=== PATIENT | male | born 1955 | race Two or more races ===

== ENCOUNTER 2023-01-25 07:44 | Outpatient (OUT) | payer MEDICARE, SELFPAY ==
[2023-01-27 08:08] LABS: PSA, Free 0.88 ng/mL
== END 2023-01-25 07:45 | disposition home or self-care (01) ==
PROVIDERS: PCP Family Medicine
DX: R97.20 Elevated prostate specific antigen [PSA] (principal)
CPT/HCPCS: 36415; 84153; 84154

== ENCOUNTER 2023-03-21 10:16 | Emergency (ER) | payer MEDICARE, SELFPAY ==
[2023-03-21] VITALS (52 sets, daily range): BP systolic 77–107; BP diastolic 50–72; PULSE 46–80; RESP 11–26; O2SAT 81–100; BMI 25.7
--- NOTE | 2023-03-21 10:18 | ECG_ITS ---
The [facility] Test Date: 2023-03-21 Pat Name: ESEQUIEL ORTIZ Department: Room: - Gender: Male Hr Specialist: : 1955 Requested By: ANGELLA JAQUEZ Order Number: [id number] Reading MD: ANGELLA JAQUEZ Measurements Intervals [place] Rate: 61 P: 63 GA: 172 QRS: 76 QRSD: 84 T: 79 QT: 392 QTc: 396 Interpretive Statements 1100 Sinus rhythm 1102 Sinus arrhythmia 4068 Nonspecific [place] abnormality 0102 ARTIFACT PRESENT 9130 borderline ECG No previous ECG available for comparison Electronically Signed On 03-22-2023 6:47:59 EDT by ANGELLA JAQUEZ
--- NOTE | 2023-03-21 10:19 | ED_ITS ---
HPI - Chest Pain General Chief Complaint: Chest Pain Stated Complaint: CHEST PAIN Time Seen by Provider: 03/21/23 10:18 History of Present Illness HPI narrative: 68-year-old male presents for chest pain. He's been having it intermittently for the last week and he was at his doctor's office today and he was transported here paramedics. He doesn't have any pain now. He was given nitroglycerin and aspirin in the prehospital setting. He's had no fever cough or trauma. He has no personal history of heart diseasee. Related Data Home Medications Medication Instructions Recorded Confirmed pantoprazole 40 mg tablet,delayed 40 mg PO DAILY 03/21/23 03/21/23 release tamsulosin 0.4 mg capsule 0.4 mg PO Q24H 03/21/23 03/21/23 Allergies Allergy/AdvReac Type Severity Reaction Status Date / Time No Known Drug Allergies Allergy Verified 03/21/23 10:21 Review of Systems ROS Narrative A ten point review of systems is negative except as noted above. Cardiovascular Reports: chest pain PFSH PFSH Social History Smoking status: Current every day smoker Exam Narrative Exam Narrative: Nurses note and vital signs reviewed and patient is not hypoxic. General: The patient appears well and in no apparent distress. Patient is resting comfortably on cart. Skin: Warm, dry, no pallor noted. There is no rash noted. Head: Normocephalic, atraumatic Eye: Normal conjunctiva, no drainage Ears, Nose, Mouth, and Throat: oral mucosa is moist. Nares patent. Cardiovascular: Regular Rate and Rhythm, chest wall not tender, no bruise or rash present Respiratory: Patient is in no distress, no accessory muscle use, lungs are jordyn r to auscultation, no wheezing, rales or rhonchi Back: non-tender, GI: soft and nontender Musculoskeletal: The patient has no evidence of calf tenderness, no pitting edema, symmetrical pulses noted bilaterally Neurological: A&O, normal speech Psychiatric: Cooperative Constitutional Vital Signs, click to edit/add: Last Vital Signs Pulse 50 L 03/21/23 13:00 Resp 17 03/21/23 13:00 BP 105/72 03/21/23 13:00 Pulse Ox 99 03/21/23 12:50 O2 Del Method Room Air 03/21/23 10:21 Course Vital Signs Vital signs: Vital Signs Pulse Rate 80 03/21/23 10:19 Respiratory Rate 20 03/21/23 10:19 Pulse Oximetry 100 03/21/23 10:19 Pulse Rate 50 L 03/21/23 13:00 Respiratory Rate 17 03/21/23 13:00 Blood Pressure 105/72 03/21/23 13:00 Pulse Oximetry 99 03/21/23 12:50 Oxygen Delivery Method Room Air 03/21/23 10:21 MDM - Chest Pain MDM Narrative Medical decision making narrative: the patient presents pain-free. He's been having pain on and off for the past week and had an abnormal EKG in his PCPs office with ST depression laterally. Initial troponin was forty-two but the repeat is one hundred seventeen. He remains pain-free. He was given IV heparin and I've spoken to Dr. Perez and we have agreed that the patient will be [facility] to [facility]. The patient is agreeable and stable for transfer. Differential Diagnosis Differential diagnosis: Likely pneumothorax, unstable angina pectoris, atypical chest pain, st elevation myocardial infarction and other (NSTEMI) Lab Data Attestation: I reviewed the patient's lab results. Labs: Lab Results 03/21/23 03/21/23 Range/Units 10:25 12:17 WBC 6.1 (4.0-11.0) 10^3/uL RBC 4.61 L (4.70-6.10) 10^6/uL Hgb 14.3 (14.0-18.0) g/dL Hct 42.2 (42.0-54.0) % MCV 91.5 (80.0-94.0) fL MCH 31.0 (25.9-34.0) pg MCHC 33.9 (29.9-35.2) g/dL RDW 13.1 (11.0-15.0) % Plt Count 222 (150-450) 10^3/uL MPV 9.0 L (9.5-13.5) fL Neut % (Auto) 68.8 (43.0-75.0) % Lymph % (Auto) 25.4 (20.5-60.0) % [place] % (Auto) 4.9 (1.7-12.0) % Eos % (Auto) 0.3 L (0.9-7.0) % Baso % (Auto) 0.3 (0.2-2.0) % Neut # (Auto) 4.2 (1.4-6.5) 10^3/uL Lymph # (Auto) 1.6 (1.2-3.8) 10^3/uL [place] # (Auto) 0.3 (0.3-0.8) 10^3/uL Eos # (Auto) 0.0 (0.0-0.7) 10^3/uL Baso # (Auto) 0.0 (0.0-0.1) 10^3/uL Abs Immat Gran (auto) 0.02 (0.00-0.03) 10^3/uL Imm/Tot Granulo (auto) 0.3 (0.0-0.5) % Sodium 136 (136-145) mmol/L Potassium 3.4 L (3.5-5.1) mmol/L Chloride 104 (98-107) mmol/L Carbon Dioxide 24.4 (21.0-32.0) mmol/L Anion Gap 11.0 BUN 16.0 (7.0-18.0) mg/dL Creatinine 1.07 (0.70-1.30) mg/dL Est GFR ( Amer) >60 (>=60) Est GFR (Non-Af Amer) >60 (>=60) BUN/Creatinine Ratio 15.0 Glucose 196 H (74-106) mg/dL Calcium 8.4 L (8.5-10.1) mg/dL Troponin I High Sens 42.7 117.3 H* (4.0-76.1) pg/mL Imaging Data Chest x-ray: Radiologist's impression: Procedure: XR chest 1V EXAM: XR chest 1V HISTORY: . CP . COMPARISON: None. TECHNIQUE: Single view of the chest FINDINGS: Heart and vascularity are unremarkable. Lungs are free of focal infiltrates. Grossly no bony abnormality is appreciated. IMPRESSION: No acute heart or lung disease identified. Electronically authenticated by: BRANDIE DIAZ Date: 03/21/2023 10:56 ECG Data Attestation: I personally reviewed and interpreted this ECG as follows: (EKG on my interpretation shows normal sinus rhythm without acute change in a rate of 61. This is a change from EKG done at his PCPs office at 8:[address] depression inferiorly and laterally.) Heart Score History: Highly Suspicious ECG: Normal Age: >65 years Risk Factors: >3 Risk Factors/ HX of CAD:2 Troponin: <3X Normal Limit Total Heart Score Recommendations & Risks:: 7 Critical Care Time Critical Care Time Critical Care Time: Yes Total Critical Care Time: 40 Attestation: Due to the high probability of sudden and clinically significant deterioration in the patient's condition he/she required the highest level of my preparedness to intervene urgently I provided critical care time including documentation time, medication orders and management, reevaluation, vital sign assessment, ordering and reviewing of lab tests, ordering and reviewing of x-ray studies, and admission orders. Aggregate critical care time is 40 minutes including only time during which I was engaged in work directly related to his/her care and did not include time spent treating other patients simultaneously. Discharge Plan Discharge Chief Complaint: Chest Pain Clinical Impression: Acute non-ST elevation myocardial infarction (NSTEMI) Patient Disposition: [facility] Time of Disposition Decision: 12:55 Discharge Location: The [facility] Condition: Good Mode of Transportation: EMS
[2023-03-21 10:35] LABS: Basophils Percent Auto 0.3 % (0.2-2.0); Eosinophils Percent Auto 0.3 % (0.9-7.0); Hematocrit 42.2 % (42.0-54.0); Hemoglobin 14.3 g/dL (14.0-18.0); Immature Granulocytes Abs Auto 0.02 10^3/uL (0.00-0.03); Immature Granulocytes Pct Auto 0.3 % (0.0-0.5); Lymphocytes Absolute Auto 1.6 10^3/uL (1.2-3.8); Lymphocytes Percent Auto 25.4 % (20.5-60.0); Mean Corpuscular HGB Conc 33.9 g/dL (29.9-35.2); Mean Corpuscular Volume 91.5 fL (80.0-94.0); Monocytes Absolute Auto 0.3 10^3/uL (0.3-0.8); Monocytes Percent Auto 4.9 % (1.7-12.0); Neutrophils Absolute Auto 4.2 10^3/uL (1.4-6.5); Neutrophils Percent Auto 68.8 % (43.0-75.0); Platelet Count 222 10^3/uL (150-450); Red Blood Count 4.61 10^6/uL (4.70-6.10); Red Cell Distribution Width 13.1 % (11.0-15.0); White Blood Count 6.1 10^3/uL (4.0-11.0)
--- NOTE | 2023-03-21 10:35 | XR_ITS ---
The [address] [address] Patient Name: ESEQUIEL ORTIZ MRN: [facility]:[id number] date: 1955 Sex: M Assigned Patient Location: ER Current Patient Location: ER Accession/Order Number: [id number] Exam Date: 03/21/2023 10:30 Report Date: 03/21/2023 10:56 At the request of: YANN VILLALBA Procedure: XR chest 1V EXAM: XR chest 1V HISTORY: . CP . COMPARISON: None. TECHNIQUE: Single view of the chest FINDINGS: Heart and vascularity are unremarkable. Lungs are free of focal infiltrates. Grossly no bony abnormality is appreciated. XR/XR chest 1V IMPRESSION: No acute heart or lung disease identified. Electronically authenticated by: BRANDIE DIAZ Date: 03/21/2023 10:56
[2023-03-21 11:00] LABS: Calcium 8.4 mg/dL (8.5-10.1); Carbon Dioxide 24.4 mmol/L (21.0-32.0); Chloride 104 mmol/L (98-107); Estimated GFR (African America >60 (>=60); Estimated GFR (Non-African Ame >60 (>=60); Glucose 196 mg/dL (74-106); Potassium 3.4 mmol/L (3.5-5.1); Sodium 136 mmol/L (136-145); Troponin I High Sensitivity 42.7 pg/mL (4.0-76.1)
[2023-03-21] MEDS: 0.9 % SODIUM CHLORIDE 1,000 ML 999 ML IV (12:02)
[2023-03-21 12:41] LABS: Troponin I High Sensitivity 117.3 pg/mL (4.0-76.1)
[2023-03-21 13:44] LABS: INR 0.99; Partial Thromboplastin Time 32.1 sec (22.3-36.2); Prothrombin Time 10.5 sec (9.0-11.6)
[2023-03-21] MEDS: HEPARIN SODIUM,PORCINE/D5W 25,000 UNIT/500 ML IV.SOLN 15.785 UNIT IV (13:47)
[2023-03-21] MEDS: HEPARIN SODIUM (PORCINE) 5,000 UNIT/ML VIAL 4000 UNIT IV (13:47)
== END 2023-03-21 18:25 | disposition short-term general hospital (02) ==
PROVIDERS: Emergency Provider Emergency Medicine; PCP Family Medicine
DX: I21.4 Non-ST elevation (NSTEMI) myocardial infarction (principal); F17.210 Nicotine dependence, cigarettes, uncomplicated
CPT/HCPCS: 36415; 71045; 80048; 84484; 85025; 85610; 85730; 93005; 99285

== ENCOUNTER 2023-05-03 09:51 | Outpatient (OUT) | payer MEDICARE, SELFPAY ==
--- NOTE | 2023-05-03 09:58 | XR_ITS ---
The [address] [address] Patient Name: ESEQUIEL ORTIZ MRN: [id number] date: 1955 Sex: M Assigned Patient Location: [facility] Current Patient Location: [facility] Accession/Order Number: [id number] Exam Date: 05/03/2023 10:05 Report Date: 05/03/2023 10:31 At the request of: NON-STAFF PHYSICIAN Procedure: XR chest 2V EXAM: XR chest 2V HISTORY: Lung Mass R91.8, Shortness Of Breath R06.02 COMPARISON: None. TECHNIQUE: PA and lateral views of the chest. FINDINGS: The cardiomediastinal silhouette is normal. No focal consolidation is identified. There is no pneumothorax. No pleural effusion is noted. The osseous structures are intact. XR/XR chest 2V IMPRESSION: No acute cardiopulmonary process. Suggestion of COPD. Right apical scarring is not clearly seen. Electronically authenticated by: PARVIN CASEY Date: 05/03/2023 10:31
== END 2023-05-03 09:52 | disposition home or self-care (01) ==
LOC: RAD 09:53
PROVIDERS: PCP Family Medicine
DX: R91.8 Other nonspecific abnormal finding of lung field (principal); R06.02 Shortness of breath
CPT/HCPCS: 71046

== ENCOUNTER 2023-05-06 15:56 | Inpatient (IN) | payer MEDICARE, SELFPAY ==
[2023-05-06] VITALS (58 sets, daily range): BP systolic 122–168; BP diastolic 64–75; PULSE 65–96; RESP 12–32; TEMP 36.6; O2SAT 76–100; BMI 22.8; BMI 23.8
--- NOTE | 2023-05-06 16:07 | ECG_ITS ---
The [facility] Test Date: 2023-05-06 Pat Name: ESEQUIEL ORTIZ Department: Room: - Gender: Male Pharmacy Ancillary: : 1955 Requested By: ANGELLA JAQUEZ Order Number: [id number] Reading MD: ANGELLA JAQUEZ Measurements Intervals [place] Rate: 85 P: 76 AL: 160 QRS: 57 QRSD: 82 T: 90 QT: 284 QTc: 326 Interpretive Statements T wave inversion -= possible high laterarl ischemia 9150 abnormal ECG Compared to ECG 03/21/2023 10:19:39 Myocardial infarct finding now present Sinus arrhythmia no longer present Electronically Signed On 05-08-2023 5:27:42 EST by ANGELLA JAQUEZ
--- NOTE | 2023-05-06 16:07 | XR_ITS ---
The [address] [address] Patient Name: ESEQUIEL ORTIZ MRN: [facility]:[id number] date: 1955 Sex: M Assigned Patient Location: ED.MAIN Current Patient Location: ER Accession/Order Number: [id number] Exam Date: 05/06/2023 16:28 Report Date: 05/06/2023 17:24 At the request of: ELINA HOLLEY Procedure: XR chest 1V EXAM: XR chest 1V HISTORY: shortness of breath COMPARISON: 05/03/2023 TECHNIQUE: Chest X-ray AP, 1 view FINDINGS: Support devices: None. Lungs/pleura: Left lower lobe opacity, may represent atelectasis and/or consolidation. No effusion, or pneumothorax. Heart and mediastinum: Normal contours. Bones: No acute abnormality identified. XR/XR chest 1V Impression: Left lower lobe opacity, may represent atelectasis and/or consolidation. Electronically authenticated by: CAM METZGER Date: 05/06/2023 17:24
--- NOTE | 2023-05-06 16:09 | ED_ITS ---
HPI - SOB/Dyspnea General Chief Complaint: Weakness Stated Complaint: low blood pressure Time Seen by Provider: 05/06/23 16:05 Source: patient Mode of arrival: walk-in History of Present Illness HPI Narrative: Patient brought in for evaluation after he developed generalized weakness/fatigue, telling me I just don't feel normal inside . No chest pain, tightness or shortness of breath. No fever or chills. No GI or complaints. Patient was transferred from our ED to [facility] on 03/21/23 with NTESMI. He told me that they tried to do a catheterization but were unsuccessful. He was discharged home and then returned 04/22/23 to get triple bypass. He said he had been doing well until he developed symptoms this morning, as described above. Related Data Home Medications Medication Instructions Recorded Confirmed pantoprazole 40 mg tablet,delayed 40 mg PO DAILY 03/21/23 03/21/23 release tamsulosin 0.4 mg capsule 0.4 mg PO Q24H 03/21/23 03/21/23 Allergies Allergy/AdvReac Type Severity Reaction Status Date / Time No Known Drug Allergies Allergy Verified 03/21/23 10:21 [facility] Social History Smoking status: Current every day smoker Exam Narrative Exam Narrative: Nurses notes and vital signs reviewed and patient is not hypoxic. afebrile General: Well-appearing and in no apparent distress. Skin: Warm, dry, no pallor noted. No rash. Head: Normocephalic, atraumatic. Neck: Supple, non-tender. Eye: Pupils are equal, round and EOMI. No scleral icterus. Cardiovascular: Regular Rate and Rhythm without murmur, gallop or rub. Respiratory: No accessory muscle use or respiratory distress. Lungs are clear to auscultation, no wheezing, rales or rhonchi Chest Wall: no tenderness, crepitus or subcutaneous emphysema Back: No midline thoracic or lumbar vertebral tenderness. No CVA tenderness Musculoskeletal: normal ROM, no calf or popliteal tenderness, no lower extremity edema/swelling Neurological: A&O x4. No cranial nerve dysfunction observed. No truncal ataxia. Moves all extremities. Sensation intact. Psychiatric: Cooperative and interactive. Normal mood and affect. Constitutional Vital Signs, click to edit/add: Last Vital Signs Pulse 82 05/06/23 17:50 Resp 18 05/06/23 17:50 BP 124/64 11/20/23 17:48 Pulse Ox 100 05/06/23 17:50 Course Vital Signs Vital signs: Vital Signs Pulse Rate 91 H 05/06/23 16:00 Respiratory Rate 16 05/06/23 16:00 Blood Pressure 133/70 05/06/23 16:00 Pulse Oximetry 99 05/06/23 16:00 Pulse Rate 82 05/06/23 17:50 Respiratory Rate 18 05/06/23 17:50 Blood Pressure 124/64 05/06/23 17:48 Pulse Oximetry 100 05/06/23 17:50 MDM - SOB/Dyspnea MDM Narrative Medical decision making narrative: Patient was placed on environmental monitoring specialist and EKG obtained. Blood drawn and sent for evaluation. chest x-ray obtained. I sent a copy of the patient's EKG today to the utilization management rn on-call, Dr. Perez. He reviewed it and sent back images of the EKGs that had been obtained during his recent hospitalization at [facility]. The coving that I noted on today's EKG was ST elevation a couple of weeks ago. Dr. Perez told me that the troponin was normal that the patient could be admitted to [facility] for overnight serial enzymes. WBC normal but CXR shows LLL consolidation/opacity - I started him on IV Rocephin 1gm. Troponin elevated at 119.8 and BNP elevated at 2255. I texted Dr Perez to let him know and then I called the transfer line to set up transfer of this patient to [facility]. After talking with the transfer line I got a text that Dr Perez wanted a repeat troponin to decide if the patient needed to be transferred. Repeat troponin at 2hr sandra was 121.2. I spoke with Dr Perez and he is going to have the patient be admitted to [facility]. Hospitalist paged to discuss admission. Dr New and I discussed the case and he will talk to the hospitalist about admission to [facility] with the understanding that he would be transferred to [facility]. Lab Data Attestation: I reviewed the patient's lab results. Labs: Lab Results 05/06/23 05/06/23 05/06/23 Range/Units 16:20 16:45 18:28 WBC 7.3 (4.0-11.0) 10^3/uL RBC 3.37 L (4.70-6.10) 10^6/uL Hgb 10.1 L (14.0-18.0) g/dL Hct 32.5 L (42.0-54.0) % MCV 96.4 H (80.0-94.0) fL MCH 30.0 (25.9-34.0) pg MCHC 31.1 (29.9-35.2) g/dL RDW 15.1 H (11.0-15.0) % Plt Count 574 H (150-450) 10^3/uL MPV 8.8 L (9.5-13.5) fL Neut % (Auto) 67.7 (43.0-75.0) % Lymph % (Auto) 23.2 (20.5-60.0) % [place] % (Auto) 6.4 (1.7-12.0) % Eos % (Auto) 1.9 (0.9-7.0) % Baso % (Auto) 0.4 (0.2-2.0) % Neut # (Auto) 5.0 (1.4-6.5) 10^3/uL Lymph # (Auto) 1.7 (1.2-3.8) 10^3/uL [place] # (Auto) 0.5 (0.3-0.8) 10^3/uL Eos # (Auto) 0.1 (0.0-0.7) 10^3/uL Baso # (Auto) 0.0 (0.0-0.1) 10^3/uL Abs Immat Gran (auto) 0.03 (0.00-0.03) 10^3/uL Imm/Tot Granulo (auto) 0.4 (0.0-0.5) % Sodium 142 (136-145) mmol/L Potassium 3.7 (3.5-5.1) mmol/L Chloride 105 (98-107) mmol/L Carbon Dioxide 24.3 (21.0-32.0) mmol/L Anion Gap 16.4 BUN 13.0 (7.0-18.0) mg/dL Creatinine 1.09 (0.70-1.30) mg/dL Est GFR ( Amer) >60 (>=60) Est GFR (Non-Af Amer) >60 (>=60) BUN/Creatinine Ratio 11.9 Glucose 253 H (74-106) mg/dL Calcium 8.5 (8.5-10.1) mg/dL Troponin I High Sens 119.8 H* 121.2 H* (4.0-76.1) pg/mL NT-Pro-B Natriuret Pep 2255.0 H* (<=900.0) pg/mL Urine Color Lt. yellow (YELLOW) Urine Clarity Clear (CLEAR) Urine pH 6.0 (5.0-9.0) Ur Specific [place] 1.020 (1.005-1.025) Urine Protein Negative (NEG/TRACE) mg/dL Urine Glucose (UA) Negative (NEGATIVE) mg/dL Urine Ketones Negative (NEGATIVE) mg/dL Urine Occult Blood Negative (NEGATIVE) Urine Nitrite Negative (NEGATIVE) Urine Bilirubin Negative (NEGATIVE) Urine Urobilinogen 0.2 (0.2-1.0) EU/dL Ur Leukocyte Esterase Negative (NEGATIVE) Imaging Data Chest x-ray: Attestation: I have reviewed the pertinent imaging results. Radiologist's impression: Patient Name: ESEQUIEL ORTIZ MRN: [id number] date: 1955 Sex: M Assigned Patient Location: ED.MAIN Current Patient Location: ER Accession/Order Number: [id number] Exam Date: 05/06/2023 16:28 Report Date: 05/06/2023 17:24 At the request of: ELINA HOLLEY Procedure: XR chest 1V EXAM: XR chest 1V HISTORY: shortness of breath COMPARISON: 05/03/2023 TECHNIQUE: Chest X-ray AP, 1 view FINDINGS: Support devices: None. Lungs/pleura: Left lower lobe opacity, may represent atelectasis and/or consolidation. No effusion, or pneumothorax. Heart and mediastinum: Normal contours. Bones: No acute abnormality identified. Impression: Left lower lobe opacity, may represent atelectasis and/or consolidation. Electronically authenticated by: CAM METZGER Date: 05/06/2023 17:24 ECG Data Attestation: I personally reviewed and interpreted this ECG as follows: Interpretation: EKG interpretation: Emergency Department physician interpretation. Normal sinus rhythm at 85bpm. Normal axis, short QTc interval. T wave inversion lead V2, I and aVL. Coving leads V4 and V5 - more subtle in leads II, III and aVF. Discharge Plan Discharge Chief Complaint: Weakness Clinical Impression: Acute non-ST elevation myocardial infarction (NSTEMI), LLL pneumonia Patient Disposition: Admitted as Observation Time of Disposition Decision: 17:38 Discharge Location: [facility] Additional Instructions: dr jones, baljit, obs
[2023-05-06 16:27] LABS: Basophils Percent Auto 0.4 % (0.2-2.0); Eosinophils Absolute Auto 0.1 10^3/uL (0.0-0.7); Eosinophils Percent Auto 1.9 % (0.9-7.0); Hematocrit 32.5 % (42.0-54.0); Hemoglobin 10.1 g/dL (14.0-18.0); Immature Granulocytes Abs Auto 0.03 10^3/uL (0.00-0.03); Immature Granulocytes Pct Auto 0.4 % (0.0-0.5); Lymphocytes Absolute Auto 1.7 10^3/uL (1.2-3.8); Lymphocytes Percent Auto 23.2 % (20.5-60.0); Mean Corpuscular HGB Conc 31.1 g/dL (29.9-35.2); Mean Corpuscular Volume 96.4 fL (80.0-94.0); Mean Platelet Volume 8.8 fL (9.5-13.5); Monocytes Absolute Auto 0.5 10^3/uL (0.3-0.8); Monocytes Percent Auto 6.4 % (1.7-12.0); Neutrophils Percent Auto 67.7 % (43.0-75.0); Platelet Count 574 10^3/uL (150-450); Red Blood Count 3.37 10^6/uL (4.70-6.10); Red Cell Distribution Width 15.1 % (11.0-15.0); White Blood Count 7.3 10^3/uL (4.0-11.0)
[2023-05-06 16:35] LABS: Anion Gap 16.4; BUN Creatinine Ratio 11.9; Calcium 8.5 mg/dL (8.5-10.1); Carbon Dioxide 24.3 mmol/L (21.0-32.0); Chloride 105 mmol/L (98-107); Estimated GFR (African America >60 (>=60); Estimated GFR (Non-African Ame >60 (>=60); Glucose 253 mg/dL (74-106); Potassium 3.7 mmol/L (3.5-5.1); Sodium 142 mmol/L (136-145)
[2023-05-06 16:53] LABS: Troponin I High Sensitivity 119.8 pg/mL (4.0-76.1)
[2023-05-06 17:02] LABS: Bilirubin Urine NEGATIVE (NEGATIVE); Blood Urine NEGATIVE (NEGATIVE); Clarity Urine CLEAR (CLEAR); Color Urine LT. YELLOW (YELLOW); Glucose Urine UA NEGATIVE (NEGATIVE); Ketones Urine NEGATIVE (NEGATIVE); Leukocyte Esterase Urine NEGATIVE (NEGATIVE); Nitrite Urine NEGATIVE (NEGATIVE); Protein Urine NEGATIVE (NEG/TRACE); Urobilinogen Urine 0.2 EU/dL (0.2-1.0)
[2023-05-06 17:03] LABS: Urine Microscopic Indicated NO
[2023-05-06] MEDS: CEFTRIAXONE 1,000 MG in 0.9 % SODIUM CHLORIDE 50 ML 100 MG IV (17:54)
[2023-05-06 18:51] LABS: Troponin I High Sensitivity 121.2 pg/mL (4.0-76.1)
[2023-05-06] MEDS: AZITHROMYCIN 500 MG in 0.9 % SODIUM CHLORIDE 250 ML 250 MG IV (20:07)
--- NOTE | 2023-05-06 20:16 | W.PM.TELEPN ---
Progress Note: Subjective Subjective Interval history: The patient is a 68yo man with a PMHx of CAD s/p CABG (04/2023), Hypertension, Gout, who presented to the ED with some weakness for the last 4 days. He has developed some SOB but denies any coughing, sputum production, wheezing or fevers. He had some lightheadedness yesterday and today, with his SBP at home being measured at 100 mmHg. He also notes that he has developed some edema in his legs and has difficulty breathing when he lies down flat when he goes to sleep. He denies any chest pain, N/V/D/C, abdominal pain. He was recently evaluated for a NSTEMI and ended up having CABG at the beginning of this month. He has been home, recovering, since then, and on discharge he declined cardiac rehab, thinking that it meant going to SNF. He has been minimally acive since then, mostly sitting or laying down, only getting up a few times a day. Exam Constitutional Vital Signs, click to edit/add: Last Vital Signs Temp 97.8 F 05/06/23 20:00 Pulse 78 05/06/23 20:00 Resp 16 05/06/23 20:00 BP 124/64 05/06/23 17:48 Pulse Ox 95 05/06/23 20:00 Documenting provider has reviewed patient's vital signs: yes Common normals: no apparent distress, average body habitus, oriented x3, no limitations, healthy appearing, alert and well nourished [facility] Common normals: normocephalic, head/scalp atraumatic and external ears normal Eye Common normals: PERRL, EOMs intact bilaterally, conjunctivae normal and no scleral icterus Neck & C-Spine Common normals: full ROM, no lymphadenopathy and supple Lymph Lymphatic: no lymphadenopathy noted Chest Common normals: inspection of chest normal Respiratory Common normals: normal respiratory effort, no retractions, no use of accessory muscles and clear to auscultation bilaterally Cardio Common normals: regular rate, regular rhythm, S1 normal heart sound, S2 normal heart sound, no gallops, no clicks, no murmurs, no rub and peripheral pulses 2+ throughout GI Common normals: Normal to inspection, nondistended, normoactive bowel sounds present, soft to palpation and non-tender Extremity Common normals: normal to inspection and full ROM General: edema Neuro Common normals: oriented x3, CN's II-XII intact bilaterally, moves all extremities, no focal motor deficits and no sensory deficits noted Psych Common normals: mental status grossly normal, thought process normal, cooperative, affect normal, speech normal, activity/motor behavior normal, denies hallucinations, denies homicidal ideation and denies suicidal ideation Progress Note: Objective Labs Labs: Short CBC 05/06/23 Range/Units 16:20 WBC 7.3 (4.0-11.0) 10^3/uL Hgb 10.1 L (14.0-18.0) g/dL Hct 32.5 L (42.0-54.0) % Plt Count 574 H (150-450) 10^3/uL BMP 05/06/23 16:20 Sodium 142 Potassium 3.7 Chloride 105 Carbon Dioxide 24.3 BUN 13.0 Creatinine 1.09 Glucose 253 H Calcium 8.5 Urine 05/06/23 Range/Units 16:45 Urine Color Lt. yellow (YELLOW) Urine Clarity Clear (CLEAR) Urine pH 6.0 (5.0-9.0) Ur Specific [place] 1.020 (1.005-1.025) Urine Protein Negative (NEG/TRACE) mg/dL Urine Glucose (UA) Negative (NEGATIVE) mg/dL ECG Attestation: I personally reviewed and interpreted this ECG as follows: ECG interpretation date: 05/06/23 ECG interpretation time: 00:11 Prior ECG tracings: available for review Interpretation: SR with a rate of 90. He has some non-specific ST changes in his inferior leads which are different compared to his last EKG from 03/2023. Progress Note: A&P Assessment and Plan (1) LLL pneumonia: Assessment and Plan: He presents with weakness and has a LLL infiltrate on chest X-ray, probably from shallow inspirations following his CABG. - admit to hospitalist alba - c/w ceftriaxone and azithromycin for CAP - supplemental oxygen as needed - f/u blood cultures and sputum culture (2) CAD (coronary artery disease): Assessment and Plan: The patient had CABG for his multivesseal CAD two weeks ago. Today, his troponin is elevated and his EKG shows some new ST changes when compared to the last one we have from 03/2023, but his NSTEMI and CABG were after this, so it is not clear how new these changes are. His troponin elevation may just be again due to his recent NSTEMI and CABG and may not represent a new event. Of note, he has symptoms that are suggestive of new onset heart failure. He has some LE edema and some orthopnea nad his BNP is elevated. On examination, however, he has no crackles on auscultation. - c/w telemetry - trend troponin - c/w aspirin, clopidogrel - c/w atorvastatin - review echocardiogram done at [facility] - I/O, daily weights - keep K >4 and Mg >2 - will hold off on furosemide for now given that he had some low BPs at home and he is not very symptomatic here, but it might need to be given eventually. - hold metoprolol due to possible hypotension at home Qualifiers: Coronary Disease-Associated Artery/Lesion type: ely sh[place] artery [place] vs. transplanted heart: ely shoshone heart Associated angina: without angina Qualified Code(s): I25.10 - Atherosclerotic heart disease of ely shoshone coronary artery without angina pectoris (3) Gout: Assessment and Plan: No active gout flare currently. - c/w colchicine (4) Hypertension: Assessment and Plan: BP stable in the hospital, but it was reportedly lower at home. - hold metoprolol Telemedicine Attestation Telemedicine Attestation I conducted this encounter from [place] via secure live, [id number] video conference with the patient, located at [facility] with [facility] . Prior to the interview, the risks and benefits of telemedicine were discussed with the patient and verbal consent was obtained.
--- NOTE | 2023-05-06 20:29 | PC.NURSE ---
Patient C/O of some pain at IV site. Site checked was able to draw back and flush without difficulty.
[2023-05-06] MEDS: ENOXAPARIN SODIUM 40 MG/0.4 ML SYRINGE SUBQ (23:25)
[2023-05-06] MEDS: TAMSULOSIN HCL 0.4 MG CAPSULE PO (23:26)
[2023-05-06] MEDS: METOPROLOL TARTRATE 25 MG TABLET 12.5 MG PO (23:31)
[2023-05-07] VITALS (71 sets, daily range): BP systolic 102–126; BP diastolic 54–67; PULSE 63–105; RESP 0–29; TEMP 36.6–36.8; O2SAT 92–99
[2023-05-07 05:50] LABS: Basophils Percent Auto 0.4 % (0.2-2.0); Eosinophils Absolute Auto 0.1 10^3/uL (0.0-0.7); Eosinophils Percent Auto 1.8 % (0.9-7.0); Hematocrit 30.2 % (42.0-54.0); Hemoglobin 9.5 g/dL (14.0-18.0); Immature Granulocytes Abs Auto 0.03 10^3/uL (0.00-0.03); Immature Granulocytes Pct Auto 0.4 % (0.0-0.5); Lymphocytes Absolute Auto 1.7 10^3/uL (1.2-3.8); Lymphocytes Percent Auto 23.2 % (20.5-60.0); Mean Corpuscular HGB Conc 31.5 g/dL (29.9-35.2); Mean Corpuscular Volume 95.3 fL (80.0-94.0); Mean Platelet Volume 8.6 fL (9.5-13.5); Monocytes Absolute Auto 0.7 10^3/uL (0.3-0.8); Monocytes Percent Auto 9.4 % (1.7-12.0); Neutrophils Absolute Auto 4.7 10^3/uL (1.4-6.5); Neutrophils Percent Auto 64.8 % (43.0-75.0); Platelet Count 506 10^3/uL (150-450); Red Blood Count 3.17 10^6/uL (4.70-6.10); Red Cell Distribution Width 14.9 % (11.0-15.0); White Blood Count 7.2 10^3/uL (4.0-11.0)
[2023-05-07 06:10] LABS: BUN Creatinine Ratio 15.6; Calcium 8.6 mg/dL (8.5-10.1); Carbon Dioxide 23.7 mmol/L (21.0-32.0); Chloride 107 mmol/L (98-107); Estimated GFR (African America >60 (>=60); Estimated GFR (Non-African Ame >60 (>=60); Glucose 111 mg/dL (74-106); Potassium 3.7 mmol/L (3.5-5.1); Sodium 140 mmol/L (136-145)
[2023-05-07 06:46] LABS: Troponin I High Sensitivity 121.1 pg/mL (4.0-76.1)
[2023-05-07] MEDS: DOCUSATE SODIUM 100 MG CAPSULE PO (08:55)
[2023-05-07] MEDS: ASPIRIN 81 MG TAB.CHEW PO (08:56)
[2023-05-07] MEDS: ATORVASTATIN CALCIUM 40 MG TABLET PO (08:57)
[2023-05-07] MEDS: ASCORBIC ACID 500 MG TABLET 1000 MG PO (08:57)
[2023-05-07] MEDS: COLCHICINE 0.6 MG TABLET PO (08:57)
--- NOTE | 2023-05-07 08:57 | P.HP_ITS ---
H&P: HPI History of Present Illness Chief complaint: low blood pressure Lower Pneumonia Narrative: Patient presented to the emergency room with increasing shortness of breath. Did not have chest pain. 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 In ER with symptoms and elevated troponin patient was admitted to the ICU. Review of Systems ROS Status of ROS 10 or more systems reviewed and unremarkable except as noted in history and below PFSH PFSH Medical History (Updated 05/07/23 @ 00:08 by Wan Zelaya MD) CAD (coronary artery disease) ?I25.10 - Atherosclerotic heart disease of [place] coronary artery without angina pectoris (ICD-10) Hypertension ?I10 - Essential (primary) hypertension (ICD-10) PVD (peripheral vascular disease) ?I73.9 - Peripheral vascular disease, unspecified (ICD-10) Surgical History (Updated 05/06/23 @ 21:44 by Lesley Mike) History of open heart surgery ?Z98.890 - Other specified postprocedural states (ICD-10) Social History (Updated 05/06/23 @ 21:45 by Lesley Mike) Within the past year, how often did you have a drink containing alcohol: never Score interpretation: A score less than 4 is consistent with normal alcohol consumption. Smoking status: Former smoker Non-prescribed substance use: denies use Meds Home Medications and Allergies Home Medications Medication Instructions Recorded Confirmed Type pantoprazole 40 mg tablet,delayed 40 mg PO DAILY 03/21/23 05/06/23 History release tamsulosin 0.4 mg capsule 0.4 mg PO Q24H 03/21/23 05/06/23 History acetaminophen 500 mg tablet 500 mg PO Q6H PRN pain 05/06/23 05/06/23 History ascorbic acid (vitamin C) 500 mg 1 g PO QAM 05/06/23 05/06/23 History tablet (Vitamin C) aspirin 81 mg chewable tablet 1 tab PO QAM 05/06/23 05/06/23 History atorvastatin 40 mg tablet 40 mg PO QAM 05/06/23 05/06/23 History clopidogrel 75 mg tablet 75 mg PO QAM 05/06/23 05/06/23 History colchicine 0.6 mg tablet 0.6 mg PO QAM 05/06/23 05/07/23 History docusate sodium 100 mg capsule 100 mg PO QAM 05/06/23 05/06/23 History ferrous sulfate 325 mg (65 mg 325 mg PO QAM 05/06/23 05/06/23 History iron) tablet (FeroSul) metoprolol tartrate 25 mg tablet 12.5 mg PO Q12H 05/06/23 05/06/23 History oxycodone 5 mg tablet 5 mg PO Q6H PRN pain 05/06/23 05/06/23 History vitamin E (dl, acetate) 180 mg 180 mg PO QAM 05/06/23 05/06/23 History (400 unit) capsule furosemide 20 mg tablet (Lasix) 20 mg PO DAILY #30 tabs 05/07/23 Rx levofloxacin 500 mg tablet 500 mg PO DAILY 10 days #10 tabs 05/07/23 Rx Allergies Allergy/AdvReac Type Severity Reaction Status Date / Time No Known Drug Allergies Allergy Verified 03/21/23 10:21 Exam Constitutional Vital Signs, click to edit/add: Last Vital Signs Temp 98 F 05/07/23 06:13 Pulse 80 05/07/23 07:00 Resp 9 L 05/07/23 06:20 BP 102/54 05/07/23 06:13 Pulse Ox 92 L 05/07/23 07:00 O2 Del Method Room Air 05/06/23 23:39 Documenting provider has reviewed patient's vital signs: yes Common normals: no apparent distress Chest Common normals: inspection of chest normal (Well-healing midline scar) Respiratory Common normals: normal respiratory effort and no retractions Cardio Common normals: regular rate, regular rhythm and no murmurs Results Labs Labs: Short CBC 05/06/23 05/07/23 Range/Units 16:20 05:29 WBC 7.3 7.2 (4.0-11.0) 10^3/uL Hgb 10.1 L 9.5 L (14.0-18.0) g/dL Hct 32.5 L 30.2 L (42.0-54.0) % Plt Count 574 H 506 H (150-450) 10^3/uL BMP 05/06/23 05/07/23 16:20 05:29 Sodium 142 140 Potassium 3.7 3.7 Chloride 105 107 Carbon Dioxide 24.3 23.7 BUN 13.0 12.0 Creatinine 1.09 0.77 Glucose 253 H 111 H Calcium 8.5 8.6 Urine 05/06/23 Range/Units 16:45 Urine Color Lt. yellow (YELLOW) Urine Clarity Clear (CLEAR) Urine pH 6.0 (5.0-9.0) Ur Specific [place] 1.020 (1.005-1.025) Urine Protein Negative (NEG/TRACE) mg/dL Urine Glucose (UA) Negative (NEGATIVE) mg/dL Assessment and Plan Assessment and Plan (1) LLL pneumonia: (2) CAD (coronary artery disease): Qualifiers: Associated angina: without angina Coronary Disease-Associated Artery/Lesion type: [place] artery [place] vs. transplanted heart: [place] heart Qualified Code(s): I25.10 - Atherosclerotic heart disease of [place] coronary artery without angina pectoris (3) Gout: (4) Hypertension: Plan Acute respiratory distress with x-ray findings consistent with left lower lobe pneumonia-will treat patient with IV antibiotics here and sent home today on oral agents unless cardiology wants further workup done. Medications see list. Follow-up with me in the office next week. High-sensitivity troponin elevation as well as BNP elevation-this is leveled off, patient did not have any type of chest pain. Case was reviewed with cardiology at [facility]. Symptoms improved they are comfortable with patient being discharged home and follow-up with them as an outpatient.
[2023-05-07] MEDS: CLOPIDOGREL BISULFATE 75 MG TABLET PO (08:58)
[2023-05-07] MEDS: OMEPRAZOLE 40 MG CAPSULE.DR PO (08:58)
[2023-05-07] MEDS: FERROUS SULFATE 325 MG TABLET PO (08:59)
[2023-05-07] MEDS: L. ACIDOPHILUS/L.BULGARICUS 1 PACKET GRAN.PACK PO (09:00)
[2023-05-07] MEDS: METOPROLOL TARTRATE 25 MG TABLET 12.5 MG PO (09:04)
[2023-05-07] MEDS: LEVOFLOXACIN IN DEXTROSE 5 % 750 MG/150 ML IV.SOLN 100 MG IV (09:06)
--- NOTE | 2023-05-07 09:13 | CM.NOTE ---
Rounds made with Dr. Nunes. Await Cardiology input for plan. Potential discharge today.
--- NOTE | 2023-05-07 12:15 | CM.NOTE ---
Pt given information regarding Living Will and packet, pt denies any questions. Pt given also information regarding Cardiac Rehab, pt has appt next week with public health professor for clearance and then will discuss with Dr. Nunes.
--- NOTE | 2023-05-08 08:27 | CM.NOTE ---
Important Message From Medicare discussed with pt, pt verbalizes understanding and signs form. Original given to pt and copy placed on pt's chart.
--- NOTE | 2023-05-08 12:04 | CM.DCFOLLOWU ---
Person spoke with: Gui How are you feeling? pretty good How is your pain? none Did you understand your discharge instructions? yes Do you have any questions about your discharge instructions? no Were you given any prescriptions at discharge? yes lasix and levofloxin Were you able to get your prescriptions filled? yes Do you understand how to take your medications as ordered? yes Do you have any questions about your follow up appointment and do you plan to keep your follow up appointment? No questions and plans to keep all appointments that were listed on d/c instructions Is there anything else that you would like to discuss? no thank you Questions/Comments/Concerns/Other:
--- OUTSIDE RECORDS SUMMARY | 2023-06-04 21:56 | XMS_ITS | CCD ---
Author Name Unknown Address [address] [place] [address] Organization [facility] Care Team Providers Care Racing Secretary Name Role Phone Tyson Jaquez Primary Care Physician GISELE ., DR PERALES Admitting Unavailable HOY ., DR PERALES Attending Unavailable HOY ., DR PERALES Primary Care Unavailable HOY ., DR PERALES Consulting Unavailable POLICAROGARCIA Consulting Unavailable MONICA MONDRAGON JR Admitting Unavailable MONICA MONDRAGON JR Attending Unavailable GISELE ., DR PERALES Primary Care Unavailable BRANDIE RUDD Consulting Unavailable MONICA MONDRAGON JR Consulting Unavailable SHALOM, DR CASPER Grace Admitting Unavailable RICE, DR CASPER Grace Attending Unavailable HOY ., DR PERALES Primary Care Unavailable RICE, DR CASPER Grace Consulting Unavailable HOY ., DR PERALES Admitting Unavailable HOY ., DR PERALES Attending Unavailable HOY ., DR PERALES Primary Care Unavailable HOY ., DR PERALES Consulting Unavailable ZIEBER, DR DAVID Bond Consulting Unavailable ELIZABETH LINDSAY Attending Unavailable DAKSHA, ELIZABETH Benedict Attending Unavailable RICECasper Referring Unavailable RICE, Casper Grace Attending Unavailable RICE, Casper Grace Admitting Unavailable RICE, Casper Grace Referring Unavailable RICE, Casper Grace Attending Unavailable DOMENIC NGUYEN Attending Unavailable SHOAIBSUSANNE RICHARDSON Admitting Unavailable YANN VILLALBA Referring Unavailable ELINA HOLLEY Referring Unavailable PETER, CHAITANYA Attending Unavailable PETER, CHAITANYA Admitting Unavailable SAEID KIMBALL Referring Unavailable JENNA CABRERA Referring Unavailable CARRIZO, CHAITANYA Referring Unavailable PARENTEAUSHMUEL Referring Unavailable PARENTEAUSHMUEL Referring Unavailable KAREY SAWANT Referring Unavailabl e KAREY SAWANT Referring Unavailabl e KAREY SAWANT Referring Unavailabl e CARRIVERA, CHAITANYA Referring Unavailable KAREY SAWANT Referring Unavailabl e CARRIZO, CHAITANYA Referring Unavailable CARRIZO, CHAITANYA Referring Unavailable CARRIZO, CHAITANYA Referring Unavailable JIGAR, Referring Unavailable CARRIZO, CHAITANYA Referring Unavailable CARRIZO, CHAITANYA Referring Unavailable CLIFFEL, CESAR Referring Unavailable KULAKOWSKI, KAREY Dhaliwal Referring Unavailabl e KULAKOWSKI, KAREY Dhaliwal Referring Unavailabl e KULAKOWSKI, KAREY Dhaliwal Referring Unavailabl e JIGAR, Referring Unavailable RICKJENNA BRIGGS Referring Unavailable CARRIZO, CHAITANYA Referring Unavailable JIGAR, Referring Unavailable CARRIZO, CHAITANYA Referring Unavailable KULAKOWSKI, KAREY Dhaliwal Referring Unavailabl e CARRIZO, CHAITANYA Referring Unavailable CARRIZO, CHAITANYA Attending Unavailable CARRIZO, CHAITANYA Referring Unavailable CARRIZO, CHAITANYA Referring Unavailable OMBALLI, JACOB Attending Unavailable PERNE, JUANITA Attending Unavailable JIGAR, SAEID Attending Unavailable PARENTEAU, SHMUEL Referring Unavailable OMBALLI, JACOB Attending Unavailable PARENTEAU, SHMUEL Attending Unavailable RICKVALENTINA Attending Unavailable PATRICKDOMENIC Referring Unavailable KULAKOWSKI, KAREY Dhaliwal Referring Unavailabl e CLIFFEL, CESAR Referring Unavailable RAKANZANDER Referring Unavailable CARRIZO, CHAITANYA Referring Unavailable DARSHANRODGER Referring Unavailable Allergies Allergy Classification Reported Allergen(s) Allergy Type Date of Onset Reaction(s) Facility (1 source) No Known Medication Allergies; Translations: [No Known Medication Allergies] Propensity to adverse reactions (disorder) [facility] Repository Medications Current Medications Medication Drug Class(es) Dates Sig (Normalized) Sig (Original) pantoprazole 40 mg extended release oral tablet (3 sources) Proton Pump Inhibitor Start: 03-15-2022 take 40 mg by mouth once daily pantoprazole 40 mg, Oral, Daily Start Date: 03/15/22 Status: Ordered tamsulosin hydrochloride 0.4 mg oral capsule (4 sources) alpha-Adrenergic Mahesh Start: 12-05-2021 take 1 capsule by mouth once daily tamsulosin 0.4 mg Cap 0.4 mg = 1 cap(s), Oral, Daily, # 90 cap(s), Refills(s) 3, Pharmacy: [facility]/pharmacy #[id number], 162, cm, 12/05/21 8:20:00 EDT, Height/Length Dosing, 67.2, kg, 12/05/21 8:20:00 EDT, Weight Dosing Start Date: 12/05/21 Status: Ordered Completed/Discontinued Medications Medication Drug Class(es) Dates Sig (Normalized) Sig (Original) cephalexin 500 mg oral capsule (4 sources) Cephalosporin Antibacterial Start: 12-05-2021 take 1 capsule by mouth once daily Keflex 500 mg Cap 500 mg = 1 cap(s), Oral, Daily, Take 1 tab day before procedure and 1 after procedure, # 2 cap(s), Refills(s) 0, Pharmacy: [facility]/pharmacy #[id number], 162, cm, 12/05/21 8:20:00 EDT, Height/Length Dosing, 67.2, kg, 12/05/21 8:20:00 EDT, Weight Dosing Start Date: 12/05/21 Status: Ordered Problems Active Problems Problem Classification Problem Date Documented Date Episodic/Chronic Abdominal hernia (1 source) Diaphragmatic hernia without obstruction or gangrene; Translations: [DIAPH HERNIA W/O OBST/GANGRENE] Onset: 07-26-2022 Episodic Acute myocardial infarction (4 sources) Non-ST elevation (NSTEMI) myocardial infarction; Translations: [Other myocardial infarction type] Onset: 04-09-2023 Chronic Chronic obstructive pulmonary disease and bronchiectasis (3 sources) Emphysema, unspecified; Translations: [Simple chronic bronchitis] Onset: 07-26-2022 Chronic Coronary atherosclerosis and other heart disease (8 sources) 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; Translations: [Unstable angina] Onset: 03-21-2023 Chronic Coronary atherosclerosis and other heart disease (2 sources) Presence of aortocoronary bypass graft; Translations: [Presence of aortocoronary bypass graft] Onset: 04-22-2023 Episodic Diabetes mellitus without complication (1 source) Other abnormal glucose; Translations: [OTHER ABNORMAL GLUCOSE] Onset: 07-26-2022 Episodic Disorders of lipid metabolism (1 source) Hyperlipidemia, unspecified; Translations: [HYPERLIPIDEMIA UNSPECIFIED] Onset: 07-26-2022 Chronic Essential hypertension (2 sources) Essential (primary) hypertension; Translations: [Essential (primary) hypertension] Onset: 03-23-2023 Chronic Heart valve disorders (2 sources) Nonrheumatic aortic valve disorder, unspecified; Translations: [Nonrheumatic aortic valve disorder, unspecified] Onset: 09-04-2022 Chronic Hyperplasia of prostate (11 sources) Benign prostatic hypertrophy with outflow obstruction; Translations: [Benign prostatic hyperplasia with lower urinary tract symptoms] Onset: 12-05-2021 Chronic Other aftercare (2 sources) Encounter for therapeutic drug level monitoring; Translations: [Encounter for therapeutic drug level monitoring] Onset: 04-09-2023 Episodic Other circulatory disease (2 sources) Stricture of artery; Translations: [Stricture of artery] Onset: 04-09-2023 Chronic Other lower respiratory disease (6 sources) Other nonspecific abnormal finding of lung field; Translations: [OTH NONSPECIFIC ABN FIND LNG FIELD] Onset: 08-04-2022 Episodic Other lower respiratory disease (2 sources) Solitary pulmonary nodule; Translations: [Solitary pulmonary nodule] Onset: 04-04-2023 Episodic Other male genital disorders (5 sources) 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 Other screening for suspected conditions (not mental disorders or infectious disease) (2 sources) Abnormal findings on diagnostic imaging of other specified body structures; Translations: [Abnormal findings on diagnostic imaging of other specified body structures] Onset: 04-09-2023 Chronic Otitis media and related conditions (4 sources) Otitis media, unspecified, unspecified ear; Translations: [OTITIS MEDIA UNSPECIFIED UNS EAR] Onset: 07-25-2022 Episodic Peripheral and visceral atherosclerosis (2 sources) Peripheral vascular disease, unspecified; Translations: [Peripheral vascular disease, unspecified] Onset: 05-16-2023 Chronic Shock (2 sources) Cardiogenic shock; Translations: [Cardiogenic shock] Onset: 04-23-2023 Episodic Substance-related disorders (3 sources) Nicotine dependence, cigarettes, uncomplicated; Translations: [Nicotine dependence, unspecified, uncomplicated] Onset: 07-26-2022 Chronic Unclassified (5 sources) Asymptomatic microscopic hematuria 12-05-2021 Unclassified (2 sources) Post-op; Translations: [Post-op] Onset: 05-16-2023 Unclassified (2 sources) ST Elevation, Fatigue Onset: 05-06-2023 Past or Other Problems Problem Classification Problem Date Documented Da te Episodic/Chronic Genitourinary symptoms and ill-defined conditions (20 sources) Microscopic hematuria; Translations: [Asymptomatic microscopic hematuria] Onset: 12-05-2021 Episodic Other diseases of kidney and ureters (2 sources) Other obstructive and reflux uropathy; Translations: [Other obstructive and reflux uropathy] Onset: 09-04-2022 Episodic Other screening for suspected conditions (not mental disorders or infectious disease) (17 sources) Raised prostate specific antigen; Translations: [Elevated prostate specific antigen [PSA]] Onset: 12-05-2021 Episodic Results Test Name Value Interpretation Reference Range Facil ity 29on 05-16-2023 29 Addended by: PASCUAL VELARDE on: 05/16/2023 03:51 PM Modules accepted: Orders [facility] 29 Addended by: PASCUAL VELARDE on: 05/16/2023 03:50 PM Modules accepted: Orders [facility] Follow-Upon 05-16-2023 Follow-Up [facility] 36on 05-03-2023 36 Normal [facility] Telephoneon 05-03-2023 Telephone [id number] Gui Ortiz 1955 M Date Provider Department [place] 05/03/2023 SAEID MARISCAL HVCVASENDAlicia [place] [facility] Family History Family history unknown: Yes Normal [facility] 36on 05-02-2023 36 Normal [facility] 30on 05-01-2023 30 Normal [facility] 30 [facility] BASIC METABOLIC PANELon 04-17 Anion gap [Moles/Vol] 11 mmol/L Normal 7-20 [facility] Comment on above: Performed By: #### L [id number] ####[facility] ([facility])[address] [place] [address] Calcium [Mass/Vol] 8.4 mg/dL Low 8.6-10.3 [facility] Comment on above: Performed By: #### L [id number] ####[facility] ([facility])[address] [place] [address] Chloride [Moles/Vol] 109 mmol/L High 98-107 [facility] Comment on above: Performed By: #### L [id number] ####[facility] ([facility])[address] [place] [address] CO2 [Moles/Vol] 22 mmol/L Normal 21-31 [facility] Comment on above: Performed By: #### L [id number] ####[facility] ([facility])[address] [place] [address] Creatinine [Mass/Vol] 0.62 mg/dL Low 0.70-1.30 [facility] Comment on above: Performed By: #### L [id number] ####[facility] ([facility])[address] [place] [address] GLOMERULAR FILTRATION RATE ML/MIN/1.73 SQ M.PREDICTED 103.5 mL/min/1.73m*2 Normal >60.0 [facility] Comment on above: Result Comment: [facility]???s estimated glomerular filtration rate (eGFR) will no longer include consideration of race in its calculation. The National Kidney Foundation???s eGFR Task Force developed new recommendations for the estimation of the glomerular filtration rate in the [place] They recommend immediate implementation of the new equation refit without the race variable in all laboratories because the calculation does not include race. In addition to not including race in the calculation and reporting, it included diversity in its development, and has acceptable performance characteristics and potential consequences that do not disproportionately affect any one group of individuals. Performed By: #### L [id number] ####[facility] ([facility])[address] [place] [address] Glucose [Mass/Vol] 98 mg/dL Normal 70-100 [facility] Comment on above: Performed By: #### L [id number] ####[facility] ([facility])[address] [place] [address] Potassium [Moles/Vol] 3.7 mmol/L Normal 3.5-5.1 [facility] Comment on above: Performed By: #### L [id number] ####[facility] ([facility])[address] [place] [address] Sodium [Moles/Vol] 138 mmol/L Normal 136-145 [facility] Comment on above: Performed By: #### L [id number] ####[facility] ([facility])[address] [place] [address] Urea nitrogen [Mass/Vol] 12 mg/dL Normal 7-25 [facility] Comment on above: Performed By: #### L [id number] ####[facility] ([facility] [place] [address] UREA NITROGEN/CREATININE (MA SS RATIO) IN SER/PLAS 19.4 Normal [facility] Comment on above: Performed By: #### L [id number] ####[facility] ([facility])[address] [place] [address] CBCon 05-01-2023 Erythrocyte distribution wid th (RBC) [Ratio] 14.5 % Normal 11.5-15.0 [facility] Comment on above: Performed By: #### L [id number] ####[facility] ([facility])[address] [place] [address] ERYTHROCYTE MEAN CORPUSCULAR HEMOGLOBIN CONCENTRATION (G/DL) BY AUTOMATED 33.2 g/dL Normal 32.0-35.0 [facility] Comment on above: Performed By: #### L [id number] ####[facility] ([facility])[address] [place] [address] Hematocrit (Bld) [Volume fraction] 27.4 % Low 39.0-55.0 [facility] Comment on above: Performed By: #### L [id number] ####[facility] ([facility])[address] [place] [address] Hemoglobin (Bld) [Mass/Vol] 9.1 g/dL Low 13.0-17. 0 [facility] Comment on above: Performed By: #### L [id number] ####[facility] ([facility])[address] [place] [address] MCH (RBC) [Entitic mass] 30.7 pg Normal 27.0-33.0 [facility] Comment on above: Performed By: #### L [id number] ####[facility] ([facility])[address] [place] [address] MCV (RBC) [Entitic vol] 92.6 fL Normal 82.0-98.[address] [facility] Comment on above: Performed By: #### L [id number] ####[facility] ([facility])[address] [place] [address] PLATELETS (10*3/UL) IN BLOOD AUTOMATED COUNT 276 10*3/uL Normal 150-400 [facility] Comment on above: Performed By: #### L [id number] ####[facility] ([facility])[address] [place] [address] RBC (Bld) [#/Vol] 2.96 10*6/uL Low 4.20-5.70 [facility] Comment on above: Performed By: #### L [id number] ####[facility] ([facility])[address] [place] [address] WBC (Bld) [#/Vol] 6.87 10*3/uL Normal 4.00-10.60 [facility] Comment on above: Performed By: #### L [id number] ####[facility] ([facility])[address] [place] [address] DSon 05-01-2023 DS Normal [facility] MAGNESIUMon 05-01-2023 Magnesium [Mass/Vol] 1.7 mg/dL Low 1.9-2.7 [facility] Comment on above: Performed By: #### L [id number] ####[facility] ([facility])[address] [place] [address] NURSNOTEon 05-01-2023 NURSNOTE Normal [facility] NURSNOTE Normal [facility] PHOSPHORUSon 05-01-2023 Magnesium [Mass/Vol] 3.8 mg/dL Normal 2.5-5.0 [facility] Comment on above: Performed By: #### L [id number] ####[facility] ([facility])[address] [place] [address] POCT GLUCOSE METER UNSOLICIT ED RESULTSon 05-01-2023 Glucose [Mass/Vol] 116 mg/dL High 70-105 [facility] Comment on above: Order Comment: Waive d Testing in the ED is performed under the ED CLIA certificate #[id number]. Result Comment: [email or web address] Performed By: #### L [id number] ####[facility] ([facility])[address] [place] [address] Glucose [Mass/Vol] 115 mg/dL High 70-105 [facility] Comment on above: Order Comment: Waive d Testing in the ED is performed under the ED CLIA certificate #[id number]. Result Comment: [email or web address] Performed By: #### L [id number] ####[facility] ([facility])[address] [place] [address] 30on 04-30-2023 30 Normal [facility] 30 [facility] 30 [facility] BASIC METABOLIC PANELon 04-17 Anion gap [Moles/Vol] 12 mmol/L Normal 7-20 [facility] Comment on above: Performed By: #### L [id number] ####[facility] ([facility])[address] [place] [address] Calcium [Mass/Vol] 8.3 mg/dL Low 8.6-10.3 [facility] Comment on above: Performed By: #### L [id number] ####[facility] ([facility])[address] [place] [address] Chloride [Moles/Vol] 109 mmol/L High 98-107 [facility] Comment on above: Performed By: #### L [id number] ####[facility] ([facility])[address] [place] [address] CO2 [Moles/Vol] 21 mmol/L Normal 21-31 [facility] Comment on above: Performed By: #### L [id number] ####[facility] ([facility])[address] [place] [address] Creatinine [Mass/Vol] 0.70 mg/dL Normal 0.70-1.30 [facility] Comment on above: Performed By: #### L [id number] ####[facility] ([facility])[address] [place] [address] GLOMERULAR FILTRATION RATE ML/MIN/1.73 SQ M.PREDICTED 99.7 mL/min/1.73m*2 Normal >60.[address] [facility] Comment on above: Result Comment: [facility]???s estimated glomerular filtration rate (eGFR) will no longer include consideration of race in its calculation. The National Kidney Foundation???s eGFR Task Force developed new recommendations for the estimation of the glomerular filtration rate in the [place] They recommend immediate implementation of the new equation refit without the race variable in all laboratories because the calculation does not include race. In addition to not including race in the calculation and reporting, it included diversity in its development, and has acceptable performance characteristics and potential consequences that do not disproportionately affect any one group of individuals. Performed By: #### L [id number] ####[facility] ([facility])[address] [place] [address] Glucose [Mass/Vol] 104 mg/dL High 70-100 [facility] Comment on above: Performed By: #### L [id number] ####[facility] ([facility])[address] [place] [address] Potassium [Moles/Vol] 3.7 mmol/L Normal 3.5-5.1 [facility] Comment on above: Performed By: #### L [id number] ####[facility] ([facility])[address] [place] [address] Sodium [Moles/Vol] 138 mmol/L Normal 136-145 [facility] Comment on above: Performed By: #### L [id number] ####[facility] ([facility])[address] [place] [address] Urea nitrogen [Mass/Vol] 15 mg/dL Normal 7-25 [facility] Comment on above: Performed By: #### L [id number] ####[facility] ([facility])[address] [place] [address] UREA NITROGEN/CREATININE (MA SS RATIO) IN SER/PLAS 21.4 Normal [facility] Comment on above: Performed By: #### L [id number] ####[facility] ([facility])[address] [place] [address] CBCon 04-30-2023 Erythrocyte distribution wid th (RBC) [Ratio] 13.8 % Normal 11.5-15.0 [facility] Comment on above: Performed By: #### L [id number] ####[facility] ([facility])[address] [place] [address] ERYTHROCYTE MEAN CORPUSCULAR HEMOGLOBIN CONCENTRATION (G/DL) BY AUTOMATED 32.6 g/dL Normal 32.0-35.0 [facility] Comment on above: Performed By: #### L [id number] ####[facility] ([facility])[address] [place] [address] Hematocrit (Bld) [Volume fraction] 27.3 % Low 39.0-55.0 [facility] Comment on above: Performed By: #### L [id number] ####[facility] ([facility])[address] [place] [address] Hemoglobin (Bld) [Mass/Vol] 8.9 g/dL Low 13.0-17. 0 [facility] Comment on above: Performed By: #### L [id number] ####[facility] ([facility])[address] [place] [address] MCH (RBC) [Entitic mass] 30.4 pg Normal 27.0-33.0 [facility] Comment on above: Performed By: #### L [id number] ####[facility] ([facility])[address] [place] [address] MCV (RBC) [Entitic vol] 93.2 fL Normal 82.0-98.0 [facility] above: Performed By: #### L [id number] ####[facility] ([facility] [place] [address] PLATELETS (10*3/UL) IN BLOOD AUTOMATED COUNT 219 10*3/uL Normal 150-400 [facility] Comment on above: Performed By: #### L [id number] ####[facility] ([facility])[address] [place] [address] RBC (Bld) [#/Vol] 2.93 10*6/uL Low 4.20-5.70 [facility] Comment on above: Performed By: #### L [id number] ####[facility] ([facility])[address] [place] [address] WBC (Bld) [#/Vol] 6.80 10*3/uL Normal 4.00-10.60 [facility] Comment on above: Performed By: #### L [id number] ####[facility] ([facility])[address] [place] [address] MAGNESIUMon 04-30-2023 Magnesium [Mass/Vol] 1.7 mg/dL Low 1.9-2.7 [facility] Comment on above: Performed By: #### L [id number] ####[facility] ([facility])[address] [place] [address] PHOSPHORUSon 04-30-2023 Magnesium [Mass/Vol] 4.0 mg/dL Normal 2.5-5.0 [facility] Comment on above: Performed By: #### L [id number] ####[facility] ([facility])[address] [place] [address] POCT GLUCOSE METER UNSOLICIT ED RESULTSon 04-30-2023 Glucose [Mass/Vol] 123 mg/dL High 70-105 [facility] Comment on above: Order Comment: Waive d Testing in the ED is performed under the ED CLIA certificate #[id number]. Result Comment: [email or web address] Performed By: #### L [id number] ####[facility] ([facility])[address] [place] [address] Glucose [Mass/Vol] 138 mg/dL High 70-105 [facility] Comment on above: Order Comment: Waive d Testing in the ED is performed under the ED CLIA certificate #[id number]. Result Comment: [email or web address] Performed By: #### L [id number] ####[facility] ([facility])[address] [place] [address] 30on 04-29-2023 30 Normal [facility] 30 [facility] 30 [facility] BASIC METABOLIC PANELon 04-17 Anion gap [Moles/Vol] 11 mmol/L Normal 7-20 [facility] Comment on above: Performed By: #### L [id number] ####[facility] ([facility])[address] [place] [address] Calcium [Mass/Vol] 8.4 mg/dL Low 8.6-10.3 [facility] Comment on above: Performed By: #### L [id number] ####[facility] ([facility])[address] [place] [address] Chloride [Moles/Vol] 109 mmol/L High 98-107 [facility] Comment on above: Performed By: #### L [id number] ####[facility] ([facility])[address] [place] [address] CO2 [Moles/Vol] 20 mmol/L Low 21-31 [facility] Comment on above: Performed By: #### L [id number] ####[facility] ([facility])[address] [place] [address] Creatinine [Mass/Vol] 0.68 mg/dL Low 0.70-1.30 [facility] Comment on above: Performed By: #### L [id number] ####[facility] (BEAKER)[address] [place] [address] GLOMERULAR FILTRATION RATE ML/MIN/1.73 SQ M.PREDICTED 100.6 mL/min/1.73m*2 Normal >60.0 [facility] Comment on above: Result Comment: [facility]???s estimated glomerular filtration rate (eGFR) will no longer include consideration of race in its calculation. The National Kidney Foundation???s eGFR Task Force developed new recommendations for the estimation of the glomerular filtration rate in the [place] They recommend immediate implementation of the new equation refit without the race variable in all laboratories because the calculation does not include race. In addition to not including race in the calculation and reporting, it included diversity in its development, and has acceptable performance characteristics and potential consequences that do not disproportionately affect any one group of individuals. Performed By: #### L [id number] ####[facility] ([facility])[address] [facility] [place] [address] Glucose [Mass/Vol] 100 mg/dL Normal 70-100 [facility] Comment on above: Performed By: #### L [id number] ####[facility] ([facility])[address] [facility] [place] [address] Potassium [Moles/Vol] 3.8 mmol/L Normal 3.5-5.1 [facility] Comment on above: Performed By: #### L [id number] ####[facility] ([facility])[address] [facility] [place] [address] Sodium [Moles/Vol] 136 mmol/L Normal 136-145 [facility] Comment on above: Performed By: #### L [id number] ####[facility] ([facility])[address] [facility] [place] [address] Urea nitrogen [Mass/Vol] 18 mg/dL Normal 7-25 [facility] Comment on above: Performed By: #### L [id number] ####[facility] ([facility])[address] [facility] [place] [address] UREA NITROGEN/CREATININE (MA SS RATIO) IN SER/PLAS 26.5 Normal [facility] Comment on above: Performed By: #### L [id number] ####[facility] ([facility])[address] [facility] [place] [address] CBCon 04-29-2023 Erythrocyte distribution wid th (RBC) [Ratio] 13.6 % Normal 11.5-15.0 [facility] Comment on above: Performed By: #### L [id number] ####[facility] ([facility] [address] ERYTHROCYTE MEAN CORPUSCULAR HEMOGLOBIN CONCENTRATION (G/DL) BY AUTOMATED 33.7 g/dL Normal 32.0-35.0 [facility] Comment on above: Performed By: #### L [id number] ####[facility] ([facility])[address] [address] Hematocrit (Bld) [Volume fraction] 27.0 % Low 39.0-55.0 [facility] Comment on above: Performed By: #### L [id number] ####[facility] ([facility])[address], [place] [address] Hemoglobin (Bld) [Mass/Vol] 9.1 g/dL Low 13.0-17. 0 [facility] Comment on above: Performed By: #### L [id number] ####[facility] ([facility] [place] [address] MCH (RBC) [Entitic mass] 30.4 pg Normal 27.0-33.0 [facility] Comment on above: Performed By: #### L [id number] ####[facility] ([facility])[address], [place] [address] MCV (RBC) [Entitic vol] 90.3 fL Normal 82.0-98.[address] [facility] Comment on above: Performed By: #### L [id number] ####[facility] ([facility])[address] [place] [address] PLATELETS (10*3/UL) IN BLOOD AUTOMATED COUNT 188 10*3/uL Normal 150-400 [facility] Comment on above: Performed By: #### L [id number] ####[facility] (BEAKER)[address] [place] [address] RBC (Bld) [#/Vol] 2.99 10*6/uL Low 4.20-5.70 [facility] Comment on above: Performed By: #### L [id number] ####[facility] ([facility])[address] [place] [address] WBC (Bld) [#/Vol] 7.24 10*3/uL Normal 4.00-10.60 [facility] Comment on above: Performed By: #### L [id number] ####[facility] ([facility])[address] [place] [address] CONSULTon 04-29-2023 CONSULT Normal [facility] MAGNESIUMon 04-29-2023 Magnesium [Mass/Vol] 1.7 mg/dL Low 1.9-2.7 [facility] Comment on above: Performed By: #### L [id number] ####[facility] ([facility])[address] [place] [address] PHOSPHORUSon 04-29-2023 Magnesium [Mass/Vol] 3.9 mg/dL Normal 2.5-5.0 [facility] Comment on above: Performed By: #### L [id number] ####[facility] ([facility])[address] [place] [address] POCT GLUCOSE METER UNSOLICIT ED RESULTSon 04-29-2023 Glucose [Mass/Vol] 111 mg/dL High 70-105 [facility] Comment on above: Order Comment: Waive d Testing in the ED is performed under the ED CLIA certificate #[id number]. Result Comment: afin [email or web address] Performed By: #### L [id number] ####[facility] ([facility])[address] [place] [address] Glucose [Mass/Vol] 133 mg/dL High 70-105 [facility] Comment on above: Order Comment: Waive d Testing in the ED is performed under the ED CLIA certificate #[id number]. Result Comment: [email or web address] Performed By: #### L [id number] ####[facility] ([facility])[address] [place] [address] Glucose [Mass/Vol] 128 mg/dL High 70-105 [facility] Comment on above: Order Comment: Waive d Testing in the ED is performed under the ED CLIA certificate #[id number]. Result Comment: mitra shea Performed By: #### L [id number] ####[facility] (BEAKER)[address] [place] [address] 30on 04-28-2023 30 Normal [facility] BASIC METABOLIC PANELon 04-17 Anion gap [Moles/Vol] 10 mmol/L Normal 7-20 [facility] Comment on above: Performed By: #### L [id number] ####[facility] ([facility] [place] [address] Calcium [Mass/Vol] 8.1 mg/dL Low 8.6-10.3 [facility] Comment on above: Performed By: #### L [id number] ####[facility] ([facility])[address] [place] [address] Chloride [Moles/Vol] 109 mmol/L High 98-107 [facility] Comment on above: Performed By: #### L [id number] ####[facility] ([facility])[address] [place] [address] CO2 [Moles/Vol] 22 mmol/L Normal 21-31 [facility] Comment on above: Performed By: #### L [id number] ####[facility] (BEAKER)[address] [place] [address] Creatinine [Mass/Vol] 0.62 mg/dL Low 0.70-1.30 [facility] Comment on above: Performed By: #### L [id number] ####[facility] ([facility])[address] [place] [address] GLOMERULAR FILTRATION RATE ML/MIN/1.73 SQ M.PREDICTED 103.5 mL/min/1.73m*2 Normal >60.0 [facility] Comment on above: Result Comment: [facility]???s estimated glomerular filtration rate (eGFR) will no longer include consideration of race in its calculation. The National Kidney Foundation???s eGFR Task Force developed new recommendations for the estimation of the glomerular filtration rate in the [place] They recommend immediate implementation of the new equation refit without the race variable in all laboratories because the calculation does not include race. In addition to not including race in the calculation and reporting, it included diversity in its development, and has acceptable performance characteristics and potential consequences that do not disproportionately affect any one group of individuals. Performed By: #### L [id number] ####[facility] ([facility])[address] [place] [address] Glucose [Mass/Vol] 102 mg/dL High 70-100 [facility] Comment on above: Performed By: #### L [id number] ####[facility] ([facility])[address] [place] [address] Potassium [Moles/Vol] 3.4 mmol/L Low 3.5-5.1 [facility] Comment on above: Performed By: #### L [id number] ####[facility] ([facility])[address] [place] [address] Sodium [Moles/Vol] 138 mmol/L Normal 136-145 [facility] Comment on above: Performed By: #### L [id number] ####[facility] ([facility])[address] [place] [address] Urea nitrogen [Mass/Vol] 22 mg/dL Normal 7-25 [facility] Comment on above: Performed By: #### L [id number] ####[facility] ([facility])[address] [place] [address] UREA NITROGEN/CREATININE (MA SS RATIO) IN SER/PLAS 35.5 Normal [facility] Comment on above: Performed By: #### L [id number] ####[facility] ([facility])[address] [facility] [place] [address] CBC WITH AUTO DIFFERENTIALon 04-28-2023 Basophils (Bld) [#/Vol] 0.02 10*3/uL Normal 0.00-0.20 [facility] Comment on above: Performed By: #### L [id number] ####[facility] ([facility]AKER)[address] [place] [address] Basophils/100 WBC (Bld) 0.2 % Normal 0.0-1.0 [facility] Comment on above: Performed By: #### L [id number] ####[facility] (BEAKER)[address] [place] [address] Eosinophils (Bld) [#/Vol] 0.09 10*3/uL Normal 0.00-0.5 0 [facility] Comment on above: Performed By: #### L [id number] ####[facility] (BEAKER)[address] [place] [address] Eosinophils/100 WBC (Bld) 1.1 % Normal 0.0-6.0 [facility] Comment on above: Performed By: #### L [id number] ####[facility] (BEAKER)[address] [place] [address] Erythrocyte distribution wid th (RBC) [Ratio] 13.6 % Normal 11.5-15.0 [facility] Comment on above: Performed By: #### L [id number] ####[facility] ([facility]AKER)[address] [place] [address] ERYTHROCYTE MEAN CORPUSCULAR HEMOGLOBIN CONCENTRATION (G/DL) BY AUTOMATED 33.1 g/dL Normal 32.0-35.0 [facility] Comment on above: Performed By: #### L [id number] ####[facility] (BEAKER)[address] [place] [address] Hematocrit (Bld) [Volume fraction] 32.3 % Low 39.0-55.0 [facility] Comment on above: Performed By: #### L [id number] ####[facility] ([facility]AKER)[address] [place] [address] Hemoglobin (Bld) [Mass/Vol] 10.7 g/dL Low 13.0-17. 0 [facility] Comment on above: Performed By: #### L [id number] ####[facility] ([facility])[address] [place] [address] Immature granulocytes (Bld) [#/Vol] 0.06 10*3/uL Normal 0.00-0.20 [facility] Comment on above: Performed By: #### L [id number] ####[facility] (BEAKER)[address] [place] [address] Immature granulocytes/100 WBC (Bld) 0.7 % Normal 0.0-1.0 [facility] Comment on above: Performed By: #### L [id number] ####[facility] (BEAKER)[address] [place] [address] Lymphocytes (Bld) [#/Vol] 1.82 10*3/uL Normal 1.20-4.0 0 [facility] Comment on above: Performed By: #### L [id number] ####[facility] (BEAKER)[address] [place] [address] Lymphocytes/100 WBC (Bld) 22.2 % Normal 20.0-45.0 [facility] Comment on above: Performed By: #### L [id number] ####[facility] (BEAKER)[address] [place] [address] MCH (RBC) [Entitic mass] 30.3 pg Normal 27.0-33.0 [facility] Comment on above: Performed By: #### L [id number] ####[facility] (BEAKER)[address] [place] [address] MCV (RBC) [Entitic vol] 91.5 fL Normal 82.0-98.[address] [facility] Comment on above: Performed By: #### L [id number] ####[facility] (BEAKER)[address] [place] [address] Monocytes (Bld) [#/Vol] 0.67 10*3/uL Normal 0.10-1.00 [facility] Comment on above: Performed By: #### L [id number] ####[facility] (BEAKER)[address] [place] [address] Monocytes/100 WBC (Bld) 8.2 % Normal 5.0-12.0 [facility] Comment on above: Performed By: #### L [id number] ####[facility] ([facility])[address] [address] Neutrophils (Bld) [#/Vol] 5.55 10*3/uL Normal 1.60-7.6 0 [facility] Comment on above: Performed By: #### L [id number] ####[facility] (BEAKER)[address] [address] Neutrophils/100 WBC (Bld) 67.6 % Normal 40.0-72.0 [facility] Comment on above: Performed By: #### L [id number] ####[facility] ([facility] [place] [address] NRBC (PER 100 WBCS) BY AUTOM ATED COUNT 0.0 % Normal 0 [facility] Comment on above: Performed By: #### L [id number] ####[facility] (BEAKER)[address] [place] [address] PLATELETS (10*3/UL) IN BLOOD AUTOMATED COUNT 160 10*3/uL Normal 150-400 [facility] Comment on above: Performed By: #### L [id number] ####[facility] (BEAKER)[address] [place] [address] RBC (Bld) [#/Vol] 3.53 10*6/uL Low 4.20-5.70 [facility] Comment on above: Performed By: #### L [id number] ####[facility] (BEAKER)[address], [place] [address] WBC (Bld) [#/Vol] 8.21 10*3/uL Normal 4.00-10.60 [facility] Comment on above: Performed By: #### L [id number] ####[facility] (BEAKER)[address] [place] [address] MAGNESIUMon 04-28-2023 Magnesium [Mass/Vol] 1.7 mg/dL Low 1.9-2.7 [facility] Comment on above: Performed By: #### L [id number] ####[facility] ([facility])[address] [place] [address] PHOSPHORUSon 04-28-2023 Magnesium [Mass/Vol] 3.9 mg/dL Normal 2.5-5.0 [facility] Comment on above: Performed By: #### L [id number] ####[facility] ([facility])[address] [place] [address] POCT GLUCOSE METER UNSOLICIT ED RESULTSon 04-28-2023 Glucose [Mass/Vol] 111 mg/dL High 70-105 [facility] Comment on above: Order Comment: Waive d Testing in the ED is performed under the ED CLIA certificate #[id number]. Result Comment: afin [email or web address] Performed By: #### L [id number] ####[facility] ([facility])[address] [place] [address] Glucose [Mass/Vol] 86 mg/dL Normal 70-105 [facility] Comment on above: Order Comment: Waive d Testing in the ED is performed under the ED CLIA certificate #[id number]. Result Comment: mitra shea Performed By: #### L [id number] ####[facility] ([facility])[address] [place] [address] Glucose [Mass/Vol] 159 mg/dL High 70-105 [facility] Comment on above: Order Comment: Waive d Testing in the ED is performed under the ED CLIA certificate #[id number]. Result Comment: mitra shea Performed By: #### L [id number] ####[facility] ([facility])[address] [place] [address] Glucose [Mass/Vol] 109 mg/dL High 70-105 [facility] Comment on above: Order Comment: Waive d Testing in the ED is performed under the ED CLIA certificate #[id number]. Result Comment: afin [email or web address] Performed By: #### L [id number] ####[facility] ([facility] [place] [address] BASIC METABOLIC PANELon 11- Anion gap [Moles/Vol] 11 mmol/L Normal 7-20 [facility] Comment on above: Performed By: #### L [id number] ####[facility] ([facility])[address] [place] [address] Calcium [Mass/Vol] 8.2 mg/dL Low 8.6-10.3 [facility] Comment on above: Performed By: #### L [id number] ####[facility] ([facility])[address] [place] [address] Chloride [Moles/Vol] 112 mmol/L High 98-107 [facility] Comment on above: Performed By: #### L [id number] ####[facility] ([facility])[address] [place] [address] CO2 [Moles/Vol] 23 mmol/L Normal 21-31 [facility] Comment on above: Performed By: #### L [id number] ####[facility] ([facility])[address] [place] [address] Creatinine [Mass/Vol] 0.64 mg/dL Low 0.70-1.30 [facility] Comment on above: Performed By: #### L [id number] ####[facility] ([facility])[address] [place] [address] GLOMERULAR FILTRATION RATE ML/MIN/1.73 SQ M.PREDICTED 102.5 mL/min/1.73m*2 Normal >60.0 [facility] Comment on above: Result Comment: [facility]???s estimated glomerular filtration rate (eGFR) will no longer include consideration of race in its calculation. The National Kidney Foundation???s eGFR Task Force developed new recommendations for the estimation of the glomerular filtration rate in the [place] They recommend immediate implementation of the new equation refit without the race variable in all laboratories because the calculation does not include race. In addition to not including race in the calculation and reporting, it included diversity in its development, and has acceptable performance characteristics and potential consequences that do not disproportionately affect any one group of individuals. Performed By: #### L [id number] ####[facility] ([facility])[address] [place] [address] Glucose [Mass/Vol] 116 mg/dL High 70-100 [facility] Comment on above: Performed By: #### L [id number] ####[facility] ([facility])[address] [place] [address] Potassium [Moles/Vol] 3.9 mmol/L Normal 3.5-5.1 [facility] Comment on above: Performed By: #### L [id number] ####[facility] ([facility])[address] [facility] [place] [address] Sodium [Moles/Vol] 142 mmol/L Normal 136-145 [facility] Comment on above: Performed By: #### L [id number] ####[facility] ([facility])[address] [place] [address] Urea nitrogen [Mass/Vol] 22 mg/dL Normal 7-25 [facility] Comment on above: Performed By: #### L [id number] ####[facility] ([facility])[address] [place] [address] UREA NITROGEN/CREATININE (MA SS RATIO) IN SER/PLAS 34.4 Normal [facility] Comment on above: Performed By: #### L [id number] ####[facility] ([facility])[address] [place] [address] CBC WITH AUTO DIFFERENTIALon 04-27-2023 Basophils (Bld) [#/Vol] 0.02 10*3/uL Normal 0.00-0.20 [facility] Comment on above: Performed By: #### L [id number] ####[facility])[address] [place] [address] Basophils/100 WBC (Bld) 0.2 % Normal 0.0-1.0 [facility] Comment on above: Performed By: #### L [id number] ####[facility] (BEAKER)[address] [place] [address] Eosinophils (Bld) [#/Vol] 0.05 10*3/uL Normal 0.00-0.5 0 [facility] Comment on above: Performed By: #### L [id number] ####[facility] ([facility] [place] [address] Eosinophils/100 WBC (Bld) 0.5 % Normal 0.0-6.0 [facility] Comment on above: Performed By: #### L [id number] ####[facility] ([facility])[address] [place] [address] Erythrocyte distribution wid th (RBC) [Ratio] 13.6 % Normal 11.5-15.0 [facility] Comment on above: Performed By: #### L [id number] ####[facility] ([facility] [place] [address] ERYTHROCYTE MEAN CORPUSCULAR HEMOGLOBIN CONCENTRATION (G/DL) BY AUTOMATED 33.7 g/dL Normal 32.0-35.0 [facility] Comment on above: Performed By: #### L [id number] ####[facility] ([facility])[address] [place] [address] Hematocrit (Bld) [Volume fraction] 26.4 % Low 39.0-55.0 [facility] Comment on above: Performed By: #### L [id number] ####[facility] ([facility] [place] [address] Hemoglobin (Bld) [Mass/Vol] 8.9 g/dL Low 13.0-17. 0 [facility] Comment on above: Performed By: #### L [id number] ####[facility] (BEAKER)[address] [place] [address] Immature granulocytes (Bld) [#/Vol] 0.07 10*3/uL Normal 0.00-0.20 [facility] Comment on above: Performed By: #### L [id number] ####[facility] (BEAKER)[address] [place] [address] Immature granulocytes/100 WBC (Bld) 0.8 % Normal 0.0-1.0 [facility] Comment on above: Performed By: #### L [id number] ####[facility] (BEAKER)[address] [place] [address] Lymphocytes (Bld) [#/Vol] 1.24 10*3/uL Normal 1.20-4.0 0 [facility] Comment on above: Performed By: #### L [id number] ####[facility] [place] [address] Lymphocytes/100 WBC (Bld) 13.3 % Low 20.0-45.0 [facility] Comment on above: Performed By: #### L [id number] ####[facility] (BEAKER)[address] [place] [address] MCH (RBC) [Entitic mass] 30.5 pg Normal 27.0-33.0 [facility] Comment on above: Performed By: #### L [id number] ####[facility] (BEAKER)[address] [place] [address] MCV (RBC) [Entitic vol] 90.4 fL Normal 82.0-98.[address] [facility] Comment on above: Performed By: #### L [id number] ####[facility] (BEAKER)[address] [place] [address] Monocytes (Bld) [#/Vol] 0.72 10*3/uL Normal 0.10-1.00 [facility] Comment on above: Performed By: #### L [id number] ####[facility] (BEAKER)[address] [place] [address] Monocytes/100 WBC (Bld) 7.7 % Normal 5.0-12.[address] [facility] Comment on above: Performed By: #### L [id number] ####[facility] (BEAKER)[address] [place] [id number] Neutrophils (Bld) [#/Vol] 7.22 10*3/uL Normal 1.60-7.6 0 [facility] Comment on above: Performed By: #### L [id number] ####[facility] ([facility])[address] [address] Neutrophils/100 WBC (Bld) 77.5 % High 40.0-72.0 [facility] Comment on above: Performed By: #### L [id number] ####[facility] ([facility])[address] [place] [id number] NRBC (PER 100 WBCS) BY AUTOM ATED COUNT 0.0 % Normal 0 [facility] Comment on above: Performed By: #### L [id number] ####[facility] ([facility])[address] [place] [id number] PLATELETS (10*3/UL) IN BLOOD AUTOMATED COUNT 100 10*3/uL Low 150-400 [facility] Comment on above: Performed By: #### L [id number] ####[facility] ([facility])[address] [place] [id number] RBC (Bld) [#/Vol] 2.92 10*6/uL Low 4.20-5.70 [facility] Comment on above: Performed By: #### L [id number] ####[facility] ([facility])[address] [place] [address] WBC (Bld) [#/Vol] 9.32 10*3/uL Normal 4.00-10.60 [facility] Comment on above: Performed By: #### L [id number] ####[facility] ([facility])[address] [place] [address] MAGNESIUMon 04-27-2023 Magnesium [Mass/Vol] 1.9 mg/dL Normal 1.9-2.7 [facility] Comment on above: Performed By: #### L [id number] ####[facility] ([facility])[address] [place] [address] PHOSPHORUSon 04-27-2023 Magnesium [Mass/Vol] 3.5 mg/dL Normal 2.5-5.0 [facility] Comment on above: Performed By: #### L [id number] ####[facility] ([facility])[address] [place] [address] POCT GLUCOSE METER UNSOLICIT ED RESULTSon 04-27-2023 Glucose [Mass/Vol] 100 mg/dL Normal 70-105 [facility] Comment on above: Order Comment: Waive d Testing in the ED is performed under the ED CLIA certificate #[id number]. Result Comment: afin ch3 Performed By: #### L [id number] ####[facility] ([facility])[address] [place] [address] Glucose [Mass/Vol] 165 mg/dL High 70-105 [facility] Comment on above: Order Comment: Waive d Testing in the ED is performed under the ED CLIA certificate #[id number]. Result Comment: mitra shea Performed By: #### L [id number] ####[facility] ([facility])[address] [place] [address] Glucose [Mass/Vol] 157 mg/dL High 70-105 [facility] Comment on above: Order Comment: Waive d Testing in the ED is performed under the ED CLIA certificate #[id number]. Result Comment: mitra shea Performed By: #### L [id number] ####[facility] ([facility])[address] [place] [address] Glucose [Mass/Vol] 112 mg/dL High 70-105 [facility] Comment on above: Order Comment: Waive d Testing in the ED is performed under the ED CLIA certificate #[id number]. Result Comment: afin ch3 Performed By: #### L [id number] ####[facility] ([facility])[address] [place] [address] PROTIME-INRon 04-27-2023 INR IN PPP BY COAGULATION ASSAY 1.21 High 0.90 -1.10 [facility] Comment on above: Result Comment: ACC RECOMMENDED INR FO R WARFARIN THERAPY ------CONDITION INRPROPHYLAXIS OF VENOUS THROMBOSIS 2-3(HIGH-RISK SURGERY)TREATMENT OF VENOUS THROMBOSIS 2-3TREATMENT OF PULMONARY EMBOLISM 2-3PREVENTION OF SYSTEMIC EMBOLISM: 2-3 ACUTE MYOCARDIAL INFARCTION TISSUE HEART VALVES VALVULAR HEART DISEASE ATRIAL FIBRILLATION RECURRENT SYSTEMIC EMBOLISMMECHANICAL HEART VALVE 2.5-3.5 FROM: ORAL ANTICOAGULANTS. MECHANISM OF ACTION, CLINICAL EFFECTIVENESS, AND OPTIMAL THERAPEUTIC RANGE. CHEST 1995;108:231S-246S. Performed By: #### L [id number] ####[facility] ([employer])[address] [place] [address] PROTHROMBIN TIME (PT) IN PPP BY COAGULATION ASSAY 15.3 Seconds High 12.3-14.8 [facility] Comment on above: Performed By: #### L [id number] ####[facility] ([employer])[address] [address] 30on 04-26-2023 30 Normal [facility] 30 Normal [facility] 30 Normal [facility] 30 Normal [facility] BASIC METABOLIC PANELon 11 Anion gap [Moles/Vol] 10 mmol/L Normal 7-20 [facility] Comment on above: Performed By: #### L [id number] ####[facility] ([employer])[address] [facility] [place] [address] Calcium [Mass/Vol] 8.5 mg/dL Low 8.6-10.3 [facility] Comment on above: Performed By: #### L [id number] ####[facility] ([facility])[address] [place] [address] Chloride [Moles/Vol] 109 mmol/L High 98-107 [facility] Comment on above: Performed By: #### L [id number] ####[facility] ([facility] [place] [address] CO2 [Moles/Vol] 25 mmol/L Normal 21-31 [facility] Comment on above: Performed By: #### L [id number] ####[facility] ([facility])[address] [place] [address] Creatinine [Mass/Vol] 0.62 mg/dL Low 0.70-1.30 [facility] Comment on above: Performed By: #### L [id number] ####[facility] ([facility])[address] [place] [address] GLOMERULAR FILTRATION RATE ML/MIN/1.73 SQ M.PREDICTED 103.5 mL/min/1.73m*2 Normal >60.0 [facility] Comment on above: Result Comment: [facility]???s estimated glomerular filtration rate (eGFR) will no longer include consideration of race in its calculation. The National Kidney Foundation???s eGFR Task Force developed new recommendations for the estimation of the glomerular filtration rate in the [place] They recommend immediate implementation of the new equation refit without the race variable in all laboratories because the calculation does not include race. In addition to not including race in the calculation and reporting, it included diversity in its development, and has acceptable performance characteristics and potential consequences that do not disproportionately affect any one group of individuals. Performed By: #### L [id number] ####[facility] ([facility])[address] [place] [address] Glucose [Mass/Vol] 136 mg/dL High 70-100 [facility] Comment on above: Performed By: #### L [id number] ####[facility] ([facility])[address] [place] [address] Potassium [Moles/Vol] 3.6 mmol/L Normal 3.5-5.1 [facility] Comment on above: Performed By: #### L [id number] ####[facility] ([facility])[address] [place] [address] Sodium [Moles/Vol] 140 mmol/L Normal 136-145 [facility] Comment on above: Performed By: #### L [id number] ####[facility] ([facility])[address] [place] [address] Urea nitrogen [Mass/Vol] 18 mg/dL Normal 7-25 [facility] Comment on above: Performed By: #### L [id number] ####[facility] ([facility])[address] [place] [address] UREA NITROGEN/CREATININE (MA SS RATIO) IN SER/PLAS 29.0 Normal [facility] Comment on above: Performed By: #### L [id number] ####[facility] ([facility])[address] [place] [address] Anion gap [Moles/Vol] 9 mmol/L Normal 7-20 [facility] Comment on above: Performed By: #### L [id number] ####[facility] ([facility])[address] [place] [address] Calcium [Mass/Vol] 7.8 mg/dL Low 8.6-10.3 [facility] Comment on above: Performed By: #### L [id number] ####[facility] ([facility])[address] [place] [address] Chloride [Moles/Vol] 112 mmol/L High 98-107 [facility] Comment on above: Performed By: #### L [id number] ####[facility] ([facility])[address] [place] [address] CO2 [Moles/Vol] 23 mmol/L Normal 21-31 [facility] Comment on above: Performed By: #### L [id number] ####[facility] ([facility])[address] [place] [address] Creatinine [Mass/Vol] 0.61 mg/dL Low 0.70-1.30 [facility] Comment on above: Performed By: #### L [id number] ####[facility] ([facility])[address] [place] [address] GLOMERULAR FILTRATION RATE ML/MIN/1.73 SQ M.PREDICTED 104.0 mL/min/1.73m*2 Normal >60.0 [facility] Comment on above: Result Comment: [facility]???s estimated glomerular filtration rate (eGFR) will no longer include consideration of race in its calculation. The National Kidney Foundation???s eGFR Task Force developed new recommendations for the estimation of the glomerular filtration rate in the [place] They recommend immediate implementation of the new equation refit without the race variable in all laboratories because the calculation does not include race. In addition to not including race in the calculation and reporting, it included diversity in its development, and has acceptable performance characteristics and potential consequences that do not disproportionately affect any one group of individuals. Performed By: #### L [id number] ####[facility] ([facility])[address] [place] [address] Glucose [Mass/Vol] 112 mg/dL High 70-100 [facility] Comment on above: Performed By: #### L [id number] ####[facility] ([facility])[address] [place] [address] Potassium [Moles/Vol] 3.4 mmol/L Low 3.5-5.1 [facility] Comment on above: Performed By: #### L [id number] ####[facility] ([facility])[address] [place] [address] Sodium [Moles/Vol] 141 mmol/L Normal 136-145 [facility] Comment on above: Performed By: #### L [id number] ####[facility] ([facility])[address] [place] [address] Urea nitrogen [Mass/Vol] 14 mg/dL Normal 7-25 [facility] Comment on above: Performed By: #### L [id number] ####[facility] ([facility])[address] [place] [address] UREA NITROGEN/CREATININE (MA SS RATIO) IN SER/PLAS 23.0 Normal [facility] Comment on above: Performed By: #### L [id number] ####[facility] ([facility])[address] [place] [address] CBCon 04-26-2023 Erythrocyte distribution wid th (RBC) [Ratio] 13.9 % Normal 11.5-15.0 [facility] Comment on above: Performed By: #### L [id number] ####[facility] ([facility])[address] [place] [address] ERYTHROCYTE MEAN CORPUSCULAR HEMOGLOBIN CONCENTRATION (G/DL) BY AUTOMATED 33.7 g/dL Normal 32.0-35.0 [facility] Comment on above: Performed By: #### L [id number] ####[facility] ([facility])[address] [place] [address] Hematocrit (Bld) [Volume fraction] 24.3 % Low 39.0-55.0 [facility] Comment on above: Performed By: #### L [id number] ####[facility] ([facility])[address] [place] [address] Hemoglobin (Bld) [Mass/Vol] 8.2 g/dL Low 13.0-17. 0 [facility] Comment on above: Performed By: #### L [id number] ####[facility] ([facility])[address] [place] [address] IMMATURE PLATELET FRACTION % 4.3 % Normal 0.8-6.3 [facility] Comment on above: Performed By: #### L [id number] ####[facility] ([facility])[address] [place] [address] MCH (RBC) [Entitic mass] 30.4 pg Normal 27.0-33.0 [facility] Comment on above: Performed By: #### L [id number] ####[facility] ([facility])[address] [place] [address] MCV (RBC) [Entitic vol] 90.0 fL Normal 82.0-98.[address] [facility] Comment on above: Performed By: #### L [id number] ####[facility] ([facility])[address] [place] [address] PLATELETS (10*3/UL) IN BLOOD AUTOMATED COUNT 71 10*3/uL Low 150-400 [facility] Comment on above: Performed By: #### L [id number] ####[facility] ([facility])[address] [place] [address] RBC (Bld) [#/Vol] 2.70 10*6/uL Low 4.20-5.70 [facility] Comment on above: Performed By: #### L [id number] ####[facility] ([facility])[address] [place] [address] WBC (Bld) [#/Vol] 7.74 10*3/uL Normal 4.00-10.60 [facility] Comment on above: Performed By: #### L [id number] ####[facility] ([facility])[address] [place] [address] CO-OXIMETRYon 04-26-2023 CARBOXYHEMOGLOBIN/HEMOGLOBIN TOTAL % IN BLOOD 1.4 % Normal [facility] Comment on above: Performed By: #### L [id number] ####[facility] [id number] [place] [address] [place] Hemoglobin (Bld) [Mass/Vol] 8.5 g/dL Normal [facility] Comment on above: Performed By: #### L [id number] ####[facility] [id number] [place] [address] [place] METHEMOGLOBIN/100 IN BLOOD 0.3 % Normal 0.0-1.5 [facility] Comment on above: Performed By: #### L [id number] ####[facility] [id number] [place] [address] [place] Oxygen saturation in Blood 57.1 % Normal [facility] Comment on above: Performed By: #### L [id number] ####[facility] [id number] [place] [address] [place] OXYGENATED HEMOGLOBIN IN BLOOD 56.1 % Normal [facility] Comment on above: Performed By: #### L [id number] ####[facility]PIR[facility] [id number] [place] [address] [place] IRON AND TIBCon 04-26-2023 IRON (UG/DL) IN SER/PLAS 16 ug/dL Low 50-212 [facility] Comment on above: Performed By: #### L [id number] ####[facility] ([facility])[address] [place] [address] IRON BINDING CAPACITY (UG/DL ) IN SER/PLAS 143 ug/dL Low 250-450 [facility] Comment on above: Performed By: #### L [id number] ####[facility] ([facility])[address] [place] [address] IRON BINDING CAPACITY.UNSATU RATED (UG/DL) IN SER/PLAS 127.0 ug/dL Low 155.0-355.0 [facility] Comment on above: Performed By: #### L [id number] ####[facility] ([facility])[address] [place] [address] IRON SATURATION (%) IN SER/PLAS 11 % Low 20-5 0 [facility] Comment on above: Performed By: #### L [id number] ####[facility] ([facility])[address] [place] [address] LACTIC ACID, PLASMAon 2022 LACTATE (MMOL/L) IN SER/PLAS 0.6 mmol/L Normal 0.5-2.2 [facility] Comment on above: Performed By: #### L [id number] ####[facility] ([facility])[address] [place] [address] MAGNESIUMon 04-26-2023 Magnesium [Mass/Vol] 1.6 mg/dL Low 1.9-2.7 [facility] Comment on above: Performed By: #### L [id number] ####[facility] ([facility])[address] [place] [address] Magnesium [Mass/Vol] 1.7 mg/dL Low 1.9-2.7 [facility] Comment on above: Performed By: #### L [id number] ####[facility] ([facility])[address] [place] [address] PHOSPHORUSon 04-26-2023 Magnesium [Mass/Vol] 3.4 mg/dL Normal 2.5-5.0 [facility] Comment on above: Performed By: #### L [id number] ####[facility] ([facility])[address] [place] [address] Magnesium [Mass/Vol] 3.7 mg/dL Normal 2.5-5.0 [facility] Comment on above: Performed By: #### L [id number] ####[facility] ([facility])[address] [place] [address] POCT GLUCOSE METER UNSOLICIT ED RESULTSon 04-26-2023 Glucose [Mass/Vol] 134 mg/dL High 70-105 [facility] Comment on above: Order Comment: Waive d Testing in the ED is performed under the ED CLIA certificate #[id number]. Result Comment: cfit ch4 Performed By: #### L [id number] ####[facility] ([facility])[address] [place] [address] Glucose [Mass/Vol] 129 mg/dL High 70-105 [facility] Comment on above: Order Comment: Waive d Testing in the ED is performed under the ED CLIA certificate #[id number]. Result Comment: cfit ch4 Performed By: #### L [id number] ####[facility] ([facility])[address] [place] [address] Glucose [Mass/Vol] 121 mg/dL High 70-105 [facility] Comment on above: Order Comment: Waive d Testing in the ED is performed under the ED CLIA certificate #[id number]. Result Comment: than sen2 Performed By: #### L [id number] ####[facility] ([facility])[address] [place] [address] Glucose [Mass/Vol] 113 mg/dL High 70-105 [facility] Comment on above: Order Comment: Waive d Testing in the ED is performed under the ED CLIA certificate #[id number]. Result Comment: than sen2 Performed By: #### L [id number] ####[facility] ([facility])[address] [place] [address] PREALBUMINon 04-26-2023 Prealbumin [Mass/Vol] 6.4 mg/dL Normal [facility] Comment on above: Performed By: #### L [id number] ####[facility] ([facility])[address] [place] [address] TRANSFERRINon 04-26-2023 Magnesium [Mass/Vol] 82 mg/dL Low 168-348 [facility] Comment on above: Performed By: #### L [id number] ####[facility])[address] [place] [address] 30on 04-25-2023 30 Normal [facility] AMMONIAon 04-25-2023 AMMONIA (UMOL/L) IN PLASMA 39 umol/L Normal 18-72 [facility] Comment on above: Performed By: #### L [id number] ####[facility] ([facility])[address] [place] [address] APTTon 04-25-2023 ACTIVATED PARTIAL THROMBOPLASTIN TIME IN PPP BY COAGULATION ASSAY 37.2 Seconds High 25.0-35.0 [facility] Comment on above: Result Comment: Clin ical significance of the APTT is questionable in the presence of heparin. Performed By: #### L [id number] ####[facility] ([facility])[address] [place] [address] BASIC METABOLIC PANELon Anion gap [Moles/Vol] 9 mmol/L Normal 7-20 [facility] Comment on above: Performed By: #### L [id number] ####[facility] ([facility])[address] [place] [address] Calcium [Mass/Vol] 8.2 mg/dL Low 8.6-10.3 [facility] Comment on above: Performed By: #### L [id number] ####[facility] ([facility])[address] [place] [address] Chloride [Moles/Vol] 111 mmol/L High 98-107 [facility] Comment on above: Performed By: #### L [id number] ####[facility] ([facility])[address] [place] [address] CO2 [Moles/Vol] 24 mmol/L Normal 21-31 [facility] Comment on above: Performed By: #### L [id number] ####[facility])[address] [place] [address] Creatinine [Mass/Vol] 0.71 mg/dL Normal 0.70-1.30 [facility] Comment on above: Performed By: #### L [id number] ####[facility] ([facility])[address] [place] [address] GLOMERULAR FILTRATION RATE ML/MIN/1.73 SQ M.PREDICTED 99.3 mL/min/1.73m*2 Normal >60.[address] [facility] Comment on above: Result Comment: [facility]???s estimated glomerular filtration rate (eGFR) will no longer include consideration of race in its calculation. The National Kidney Foundation???s eGFR Task Force developed new recommendations for the estimation of the glomerular filtration rate in the [place] They recommend immediate implementation of the new equation refit without the race variable in all laboratories because the calculation does not include race. In addition to not including race in the calculation and reporting, it included diversity in its development, and has acceptable performance characteristics and potential consequences that do not disproportionately affect any one group of individuals. Performed By: #### L [id number] ####[facility] ([facility])[address] [place] [address] Glucose [Mass/Vol] 124 mg/dL High 70-100 [facility] Comment on above: Performed By: #### L [id number] ####[facility] ([facility])[address] [place] [address] Potassium [Moles/Vol] 3.9 mmol/L Normal 3.5-5.1 [facility] Comment on above: Performed By: #### L [id number] ####[facility] ([facility])[address] [place] [address] Sodium [Moles/Vol] 140 mmol/L Normal 136-145 [facility] Comment on above: Performed By: #### L [id number] ####[facility] ([facility] [place] [address] Urea nitrogen [Mass/Vol] 17 mg/dL Normal 7-25 [facility] Comment on above: Performed By: #### L [id number] ####[facility] ([facility])[address] [place] [address] UREA NITROGEN/CREATININE (MA SS RATIO) IN SER/PLAS 23.9 Normal [facility] Comment on above: Performed By: #### L [id number] ####[facility] ([facility])[address] [place] [address] CBCon 04-25-2023 Erythrocyte distribution wid th (RBC) [Ratio] 14.0 % Normal 11.5-15.0 [facility] Comment on above: Performed By: #### L [id number] ####[facility] ([facility])[address] [place] [address] ERYTHROCYTE MEAN CORPUSCULAR HEMOGLOBIN CONCENTRATION (G/DL) BY AUTOMATED 34.1 g/dL Normal 32.0-35.0 [facility] Comment on above: Performed By: #### L [id number] ####[facility] ([facility])[address] [place] [address] Hematocrit (Bld) [Volume fraction] 24.9 % Low 39.0-55.0 [facility] Comment on above: Performed By: #### L [id number] ####[facility] ([facility])[address] [place] [address] Hemoglobin (Bld) [Mass/Vol] 8.5 g/dL Low 13.0-17. 0 [facility] Comment on above: Performed By: #### L [id number] ####[facility] ([facility])[address] [place] [address] IMMATURE PLATELET FRACTION % 5.1 % Normal 0.8-6.3 [facility] Comment on above: Performed By: #### L [id number] ####[facility])[address] [place] [address] MCH (RBC) [Entitic mass] 30.7 pg Normal 27.0-33.0 [facility] Comment on above: Performed By: #### L [id number] ####[facility] ([facility])[address] [place] [address] MCV (RBC) [Entitic vol] 89.9 fL Normal 82.0-98.[address] [facility] Comment on above: Performed By: #### L [id number] ####[facility])[address] [place] [address] PLATELETS (10*3/UL) IN BLOOD AUTOMATED COUNT 55 10*3/uL Low 150-400 [facility] Comment on above: Performed By: #### L [id number] ####[facility] ([facility])[address] [place] [address] RBC (Bld) [#/Vol] 2.77 10*6/uL Low 4.20-5.70 [facility] Comment on above: Performed By: #### L [id number] ####[facility])[address] [place] [address] WBC (Bld) [#/Vol] 9.29 10*3/uL Normal 4.00-10.60 [facility] Comment on above: Performed By: #### L [id number] ####[facility] ([facility])[address] [place] [address] Erythrocyte distribution wid th (RBC) [Ratio] 14.6 % Normal 11.5-15.0 [facility] Comment on above: Performed By: #### L [id number] ####[facility])[address] [place] [address] ERYTHROCYTE MEAN CORPUSCULAR HEMOGLOBIN CONCENTRATION (G/DL) BY AUTOMATED 34.1 g/dL Normal 32.0-35.0 [facility] Comment on above: Performed By: #### L [id number] ####[facility] ([facility])[address] [place] [address] Hematocrit (Bld) [Volume fraction] 25.5 % Low 39.0-55.0 [facility] Comment on above: Performed By: #### L [id number] ####[facility] ([facility])[address] [place] [address] Hemoglobin (Bld) [Mass/Vol] 8.7 g/dL Low 13.0-17. 0 [facility] Comment on above: Performed By: #### L [id number] ####[facility] ([facility])[address] [place] [address] IMMATURE PLATELET FRACTION % 5.5 % Normal 0.8-6.3 [facility] Comment on above: Performed By: #### L [id number] ####[facility] ([facility])[address] [place] [address] MCH (RBC) [Entitic mass] 31.0 pg Normal 27.0-33.0 [facility] Comment on above: Performed By: #### L [id number] ####[facility] ([facility])[address] [place] [address] MCV (RBC) [Entitic vol] 90.7 fL Normal 82.0-98.[address] [facility] Comment on above: Performed By: #### L [id number] ####[facility] ([facility])[address] [place] [address] PLATELETS (10*3/UL) IN BLOOD AUTOMATED COUNT 56 10*3/uL Low 150-400 [facility] Comment on above: Result Comment: P=[id number] , 1D Performed By: #### L [id number] ####[facility] ([facility])[address] [place] [address] RBC (Bld) [#/Vol] 2.81 10*6/uL Low 4.20-5.70 [facility] Comment on above: Performed By: #### L [id number] ####[facility] ([facility])[address] [place] [address] WBC (Bld) [#/Vol] 10.33 10*3/uL Normal 4.00-10.60 [facility] Comment on above: Performed By: #### L [id number] ####[facility] ([facility])[address] [place] [address] CO-OXIMETRYon 04-25-2023 CARBOXYHEMOGLOBIN/HEMOGLOBIN TOTAL % IN BLOOD 0.8 % Normal [facility] Comment on above: Performed By: #### L [id number] ####[facility] RESPIRATORY [id number] [place] [address] [place] Hemoglobin (Bld) [Mass/Vol] 7.8 g/dL Normal [facility] Comment on above: Performed By: #### L [id number] ####[facility] RESPIRATORY [id number] [place] [address] [place] METHEMOGLOBIN/100 IN BLOOD 1.1 % Normal 0.0-1.5 [facility] Comment on above: Performed By: #### L [id number] ####[facility] RESPIRATORY [id number] [place] [address] [place] Oxygen saturation in Blood 70.2 % Normal [facility] Comment on above: Performed By: #### L [id number] ####[facility] RESPIRATORY [id number] [place] [address] [place] OXYGENATED HEMOGLOBIN IN BLOOD 68.8 % Normal [facility] Comment on above: Performed By: #### L [id number] ####[facility] RESPIRATORY [id number] [place] [address] [facility] HEPATIC FUNCTION PANELon Albumin [Mass/Vol] 3.3 g/dL Low 3.5-5.7 [facility] Comment on above: Performed By: #### L [id number] ####[facility] ([facility])[address] [place] [address] ALP [Catalytic activity/Vol] 49 U/L Normal 34-104 [facility] Comment on above: Performed By: #### L [id number] ####[facility] ([facility])[address] [place] [address] ALT [Catalytic activity/Vol] 60 U/L High 7-52 [facility] Comment on above: Performed By: #### L [id number] ####[facility] ([facility])[address] [place] [address] AST [Catalytic activity/Vol] 127 U/L High 13-39 [facility] Comment on above: Performed By: #### L [id number] ####[facility] ([facility])[address] [place] [address] Bilirubin [Mass/Vol] 0.5 mg/dL Normal 0.3-1.0 [facility] Comment on above: Performed By: #### L [id number] ####[facility] ([facility])[address] [place] [address] Magnesium [Mass/Vol] 0.2 mg/dL Normal 0-0.2 [facility] Comment on above: Performed By: #### L [id number] ####[facility] ([facility])[address] [place] [address] Protein [Mass/Vol] 4.8 g/dL Low 6.0-8.3 [facility] Comment on above: Performed By: #### L [id number] ####[facility] ([facility])[address] [place] [address] LACTIC ACID WITH 4 HOUR REFL EXon 04-25-2023 LACTATE (MMOL/L) IN SER/PLAS 1.4 mmol/L Normal 0.5-2.2 [facility] Comment on above: Performed By: #### L [id number] ####[facility] ([facility])[address] [place] [address] MAGNESIUMon 04-25-2023 Magnesium [Mass/Vol] 1.7 mg/dL Low 1.9-2.7 [facility] Comment on above: Performed By: #### L [id number] ####[facility] ([facility])[address] [place] [address] NURSNOTEon 04-25-2023 NURSNOTE Normal [facility] NURSNOTE Normal [facility] PHOSPHORUSon 04-25-2023 Magnesium [Mass/Vol] 2.3 mg/dL Low 2.5-5.0 [facility] Comment on above: Performed By: #### L [id number] ####[facility] ([facility])[address] [place] [address] POCT GLUCOSE METER UNSOLICIT ED RESULTSon 04-25-2023 Glucose [Mass/Vol] 106 mg/dL High 70-105 [facility] Comment on above: Order Comment: Waive d Testing in the ED is performed under the ED CLIA certificate #[id number]. Result Comment: [email or web address] suraj Performed By: #### L [id number] ####[facility] ([facility])[address] [place] [address] Glucose [Mass/Vol] 128 mg/dL High 70-105 [facility] Comment on above: Order Comment: Waive d Testing in the ED is performed under the ED CLIA certificate #[id number]. Result Comment: [email or web address] Performed By: #### L [id number] ####[facility] ([facility])[address] [place] [address] PROTIME-INRon 04-25-2023 INR IN PPP BY COAGULATION ASSAY 1.34 High 0.90 -1.10 [facility] Comment on above: Result Comment: ACCCP RECOMMENDED INR FO R WARFARIN THERAPY ------CONDITION INRPROPHYLAXIS OF VENOUS THROMBOSIS 2-3(HIGH-RISK SURGERY)TREATMENT OF VENOUS THROMBOSIS 2-3TREATMENT OF PULMONARY EMBOLISM 2-3PREVENTION OF SYSTEMIC EMBOLISM: 2-3 ACUTE MYOCARDIAL INFARCTION TISSUE HEART VALVES VALVULAR HEART DISEASE ATRIAL FIBRILLATION RECURRENT SYSTEMIC EMBOLISMMECHANICAL HEART VALVE 2.5-3.5 FROM: ORAL ANTICOAGULANTS. MECHANISM OF ACTION, CLINICAL EFFECTIVENESS, AND OPTIMAL THERAPEUTIC RANGE. CHEST 1995;108:231S-246S. Performed By: #### L [id number] ####[facility] [employer])[address] [place] [address] PROTHROMBIN TIME (PT) IN PPP BY COAGULATION ASSAY 16.6 Seconds High 12.3-14.8 [facility] Comment on above: Performed By: #### L [id number] ####[facility] ([employer])[address] [place] [address] INR IN PPP BY COAGULATION ASSAY 1.39 High 0.90 -1.10 [facility] Comment on above: Result Comment: ACCCP RECOMMENDED INR FO R WARFARIN THERAPY ------CONDITION INRPROPHYLAXIS OF VENOUS THROMBOSIS 2-3(HIGH-RISK SURGERY)TREATMENT OF VENOUS THROMBOSIS 2-3TREATMENT OF PULMONARY EMBOLISM 2-3PREVENTION OF SYSTEMIC EMBOLISM: 2-3 ACUTE MYOCARDIAL INFARCTION TISSUE HEART VALVES VALVULAR HEART DISEASE ATRIAL FIBRILLATION RECURRENT SYSTEMIC EMBOLISMMECHANICAL HEART VALVE 2.5-3.5 FROM: ORAL ANTICOAGULANTS. MECHANISM OF ACTION, CLINICAL EFFECTIVENESS, AND OPTIMAL THERAPEUTIC RANGE. CHEST 1995;108:231S-246S. Performed By: #### L [id number] ####[facility] ([facility])[address] [place] [address] PROTHROMBIN TIME (PT) IN PPP BY COAGULATION ASSAY 17.1 Seconds High 12.3-14.8 [facility] Comment on above: Performed By: #### L [id number] ####[facility] ([facility])[address] [place] [address] 30on 04-24-2023 30 Normal [facility] 30 Normal [facility] 30 Normal [facility] ARTERIAL BLOOD GAS WITH IONI ZED CALCIUMon 04-24-2023 Base excess Calc (Bld) [Moles/Vol] -2.0000 mmol/L Normal -2.0-3.0 [facility] Comment on above: Performed By: #### L [id number] ####[facility] RESPIRATORY [id number] [place] [address] [facility] CALCIUM IONIZED (MMOL/L) IN BLOOD 1.06 mmol/L Low 1.15-1.33 [facility] Comment on above: Performed By: #### L [id number] ####[facility] RESPIRATORY [id number] [place] [address] [place] CO2 (Bld) [Partial pressure] 31 mm[Hg] Low 35-48 [facility] Comment on above: Performed By: #### L [id number] ####[facility] RESPIRATORY [id number] [place] [address] [facility] HCO3 (Bld) [Moles/Vol] 21.5 mmol/L Normal 21.0-28.0 [facility] Comment on above: Performed By: #### L [id number] ####[facility] RESPIRATORY [id number] [place] [address] [place] Oxygen (Bld) [Partial pressure] 118 mm[Hg] High 83-1 00 [facility] Comment on above: Performed By: #### L [id number] ####[facility] RESPIRATORY [id number] [place] [address] [facility] OXYGEN SATURATION (%) IN ARTERIAL BLOOD 99.4 % High 94.0-98.0 [facility] Comment on above: Performed By: #### L [id number] ####[facility] RESPIRATORY [id number] [place] [address] [facility] pH (Bld) 7.45 [pH] Normal 7.35-7.45 [facility] Comment on above: Performed By: #### L [id number] ####[facility] RESPIRATORY [id number] [place] [address] [facility] SOURCE OF OXYGEN AC/VC Normal [facility] Comment on above: Performed By: #### L [id number] ####[facility] RESPIRATORY [id number] [place] [address] [facility] TIDAL VOLUME (VT) CC 8 Normal [facility] Comment on above: Performed By: #### L [id number] ####[facility] RESPIRATORY [id number] [place] [address] [facility] BASIC METABOLIC PANELon 11-0 -2022 Anion gap [Moles/Vol] 10 mmol/L Normal 7-20 [facility] Comment on above: Performed By: #### L [id number] ####[facility] ([facility])[address] [place] [address] Calcium [Mass/Vol] 8.5 mg/dL Low 8.6-10.3 [facility] Comment on above: Performed By: #### L [id number] ####[facility] ([facility])[address] [place] [address] Chloride [Moles/Vol] 113 mmol/L High 98-107 [facility] Comment on above: Performed By: #### L [id number] ####[facility] ([facility])[address] [place] [address] CO2 [Moles/Vol] 24 mmol/L Normal 21-31 [facility] Comment on above: Performed By: #### L [id number] ####[facility] ([facility])[address] [place] [address] Creatinine [Mass/Vol] 0.83 mg/dL Normal 0.70-1.30 [facility] Comment on above: Performed By: #### L [id number] ####[facility] ([facility])[address] [place] [address] GLOMERULAR FILTRATION RATE ML/MIN/1.73 SQ M.PREDICTED 94.7 mL/min/1.73m*2 Normal >60.[address] [facility] Comment on above: Result Comment: [facility]???s estimated glomerular filtration rate (eGFR) will no longer include consideration of race in its calculation. The National Kid[employer] Foundation???s eGFR Task Force developed new recommendations for the estimation of the glomerular filtration rate in the [place] They recommend immediate implementation of the new equation refit without the race variable in all laboratories because the calculation does not include race. In addition to not including race in the calculation and reporting, it included diversity in its development, and has acceptable performance characteristics and potential consequences that do not disproportionately affect any one group of individuals. Performed By: #### L [id number] ####[facility] ([facility])[address] [place] [address] Glucose [Mass/Vol] 208 mg/dL High 70-100 [facility] Comment on above: Performed By: #### L [id number] ####[facility] ([facility])[address] [place] [address] Potassium [Moles/Vol] 3.6 mmol/L Normal 3.5-5.1 [facility] Comment on above: Performed By: #### L [id number] ####[facility] ([facility])[address] [place] [address] Sodium [Moles/Vol] 143 mmol/L Normal 136-145 [facility] Comment on above: Performed By: #### L [id number] ####[facility] ([facility])[address] [place] [address] Urea nitrogen [Mass/Vol] 19 mg/dL Normal 7-25 [facility] Comment on above: Performed By: #### L [id number] ####[facility] ([facility])[address] [place] [address] UREA NITROGEN/CREATININE (MA SS RATIO) IN SER/PLAS 22.9 Normal [facility] Comment on above: Performed By: #### L [id number] ####[facility] ([facility])[address] [place] [address] CALCIUM, IONIZEDon CALCIUM IONIZED (MMOL/L) IN BLOOD 1.20 mmol/L Normal 1.15-1.33 [facility] Comment on above: Performed By: #### C ALCIUM, IONIZED ####[facility] RESPIRATORY [id number] [place] [address] [place] CBCon 04-24-2023 Erythrocyte distribution wid th (RBC) [Ratio] 13.9 % Normal 11.5-15.0 [facility] Comment on above: Performed By: #### L [id number] ####[facility] ([facility])[address] [place] [address] ERYTHROCYTE MEAN CORPUSCULAR HEMOGLOBIN CONCENTRATION (G/DL) BY AUTOMATED 34.3 g/dL Normal 32.0-35.0 [facility] Comment on above: Performed By: #### L [id number] ####[facility] ([facility])[address] [place] [address] Hematocrit (Bld) [Volume fraction] 28.0 % Low 39.0-55.0 [facility] Comment on above: Performed By: #### L [id number] ####[facility] ([facility])[address] [place] [address] Hemoglobin (Bld) [Mass/Vol] 9.6 g/dL Low 13.0-17. 0 [facility] Comment on above: Performed By: #### L [id number] ####[facility] ([facility])[address] [place] [address] IMMATURE PLATELET FRACTION % 5.1 % Normal 0.8-6.3 [facility] Comment on above: Performed By: #### L [id number] ####[facility])[address] [place] [address] MCH (RBC) [Entitic mass] 30.7 pg Normal 27.0-33.0 [facility] Comment on above: Performed By: #### L [id number] ####[facility] ([facility])[address] [place] [address] MCV (RBC) [Entitic vol] 89.5 fL Normal 82.0-98.[address] [facility] Comment on above: Performed By: #### L [id number] ####[facility] ([facility])[address] [place] [address] PLATELETS (10*3/UL) IN BLOOD AUTOMATED COUNT 69 10*3/uL Low 150-400 [facility] Comment on above: Performed By: #### L [id number] ####[facility] ([facility])[address] [place] [address] RBC (Bld) [#/Vol] 3.13 10*6/uL Low 4.20-5.70 [facility] Comment on above: Performed By: #### L [id number] ####[facility] ([facility])[address] [place] [address] WBC (Bld) [#/Vol] 16.62 10*3/uL High 4.00-10.60 [facility] Comment on above: Performed By: #### L [id number] ####[facility])[address] [place] [address] CO-OXIMETRYon 04-24-2023 CARBOXYHEMOGLOBIN/HEMOGLOBIN TOTAL % IN BLOOD 1.2 % Normal [facility] Comment on above: Performed By: #### L [id number] ####[facility] RESPIRATORY [id number] [place] [address] [place] Hemoglobin (Bld) [Mass/Vol] 9.6 g/dL Normal [facility] Comment on above: Performed By: #### L [id number] ####[facility] RESPIRATORY [id number] [place] [address] [place] METHEMOGLOBIN/100 IN BLOOD 0.4 % Normal 0.0-1.5 [facility] Comment on above: Performed By: #### L [id number] ####[facility] RESPIRATORY [id number] [place] [address] [place] Oxygen saturation in Blood 67.5 % Normal [facility] Comment on above: Performed By: #### L [id number] ####[facility] RESPIRATORY [id number] [place] [address] [place] OXYGENATED HEMOGLOBIN IN BLOOD 66.4 % Normal [facility] Comment on above: Performed By: #### L [id number] ####[facility] RESPIRATORY [id number] [place] [address] [place] HEMOGLOBIN AND HEMATOCRIT, B LOODon 04-24-2023 Hematocrit (Bld) [Volume fraction] 28.1 % Low 39.0-55.0 [facility] Comment on above: Performed By: #### L [id number] ####[facility] ([facility])[address] [place] [address] Hemoglobin (Bld) [Mass/Vol] 9.5 g/dL Low 13.0-17. 0 [facility] Comment on above: Performed By: #### L [id number] ####[facility] ([facility])[address] [place] [address] HEPATIC FUNCTION PANELon Albumin [Mass/Vol] 3.7 g/dL Normal 3.5-5.7 [facility] Comment on above: Performed By: #### L [id number] ####[facility] ([facility])[address] [place] [address] ALP [Catalytic activity/Vol] 39 U/L Normal 34-104 [facility] Comment on above: Performed By: #### L [id number] ####[facility] ([facility])[address] [place] [address] ALT [Catalytic activity/Vol] 82 U/L High 7-52 [facility] Comment on above: Performed By: #### L [id number] ####[facility] ([facility])[address] [place] [address] AST [Catalytic activity/Vol] 229 U/L High 13-39 [facility] Comment on above: Performed By: #### L [id number] ####[facility] ([facility])[address] [place] [address] Bilirubin [Mass/Vol] 0.5 mg/dL Normal 0.3-1.0 [facility] Comment on above: Performed By: #### L [id number] ####[facility] ([facility])[address] [place] [address] Magnesium [Mass/Vol] 0.2 mg/dL Normal 0-0.2 [facility] Comment on above: Performed By: #### L [id number] ####[facility] ([facility])[address] [place] [address] Protein [Mass/Vol] 4.9 g/dL Low 6.0-8.3 [facility] Comment on above: Performed By: #### L [id number] ####[facility] ([facility])[address] [place] [address] LACTIC ACID WITH 4 HOUR REFL EXon 04-24-2023 LACTATE (MMOL/L) IN SER/PLAS 1.3 mmol/L Normal 0.5-2.2 [facility] Comment on above: Performed By: #### L [id number] ####[facility] ([facility])[address] [place] [address] Performed By: #### L [id number] ####[facility] ([facility])[address] [place] [address] LACTATE (MMOL/L) IN SER/PLAS 4.0 mmol/L Critically high 0.5-2.2 [facility] Comment on above: Result Comment: Prev ious result verified on 04/23/2023 2300 on specimen/case [id number] called with component Lactate blood venous for procedure Lactic acid, venous, whole blood with value 9.1 mmol/L. Performed By: #### L [id number] ####[facility] ([facility])[address] [place] [address] LACTATE (MMOL/L) IN SER/PLAS 9.1 mmol/L Critically high 0.5-2.2 [facility] Comment on above: Result Comment: Prev ious result verified on 04/23/2023 2137 on specimen/case [id number] called with component Lactate blood venous for procedure Lactic acid, venous, whole blood with value 12.1 mmol/L. Performed By: #### L [id number] ####[facility] ([facility])[address] [place] [address] MAGNESIUMon 04-24-2023 Magnesium [Mass/Vol] 1.8 mg/dL Low 1.9-2.7 [facility] Comment on above: Performed By: #### L [id number] ####[facility] ([facility])[address] [place] [address] MYOGLOBIN, URINEon 3 MYOGLOBIN URINE 2 mg/L High 0-1 [facility] Comment on above: Result Comment: The pH of this sample is 6. Urine for myoglobin should have thepH adjusted to between 8.0 - 9.0, as myoglobin is unstable inurine. Results may not reflect the true status of the patient.INTERPRETIVE INFORMATION: Myoglobin, UrinePatients with urine myoglobin greater than 15 mg/L are at risk ofacute renal failure. Usual results are less than 1 mg/L. Resultsbetween 1 and 15 mg/L are associated with vigorous exercise,myocardial infarction, mild muscle injury and other conditions.This test was developed and its performance characteristicsdetermined by [employer]. It has not been cleared orapproved by the [place] Food and Drug Administration. This test wasperformed in a CLIA certified laboratory and is intended forclinical purposes.Performed By: [employer] [place] [id number] Director: Wenceslao Healy MD, PhDCLIA Number: [id number] Performed By: #### L [id number] ####[facility] ([facility])[address] [place] [address] POCT GLUCOSE METER UNSOLICIT ED RESULTSon 04-24-2023 Glucose [Mass/Vol] 129 mg/dL High 70-105 [facility] Comment on above: Order Comment: Waive d Testing in the ED is performed under the ED CLIA certificate #[id number]. Result Comment: [email or web address] Performed By: #### L [id number] ####[facility] ([facility])[address] [place] [address] Glucose [Mass/Vol] 116 mg/dL High 70-105 [facility] Comment on above: Order Comment: Waive d Testing in the ED is performed under the ED CLIA certificate #[id number]. Result Comment: [email or web address] Performed By: #### L [id number] ####[facility] ([employer])[address] [place] [address] Glucose [Mass/Vol] 106 mg/dL High 70-105 [facility] Comment on above: Order Comment: Waive d Testing in the ED is performed under the ED CLIA certificate #[id number]. Result Comment: nhay man Performed By: #### L [id number] ####[facility] ([employer])[address] [place] [address] Glucose [Mass/Vol] 113 mg/dL High 70-105 [facility] Comment on above: Order Comment: Waive d Testing in the ED is performed under the ED CLIA certificate #[id number]. Result Comment: nhay man Performed By: #### L [id number] ####[facility] ([facility])[address] [place] [address] Glucose [Mass/Vol] 118 mg/dL High 70-105 [facility] Comment on above: Order Comment: Waive d Testing in the ED is performed under the ED CLIA certificate #[id number]. Result Comment: nhay man Performed By: #### L [id number] ####[facility] ([facility])[address] [place] [address] Glucose [Mass/Vol] 75 mg/dL Normal 70-105 [facility] Comment on above: Order Comment: Waive d Testing in the ED is performed under the ED CLIA certificate #[id number]. Result Comment: nhay man Performed By: #### L [id number] ####[facility] ([facility]AKER)[address] [place] [address] Glucose [Mass/Vol] 163 mg/dL High 70-105 [facility] Comment on above: Order Comment: Waive d Testing in the ED is performed under the ED CLIA certificate #[id number]. Result Comment: than sen2 Performed By: #### L [id number] ####[facility] (BEAKER)[address] [place] [address] Glucose [Mass/Vol] 176 mg/dL High 70-105 [facility] Comment on above: Order Comment: Waive d Testing in the ED is performed under the ED CLIA certificate #[id number]. Result Comment: than sen2 Performed By: #### L [id number] ####[facility] (BEAKER)[address] [place] [address] Glucose [Mass/Vol] 147 mg/dL High 70-105 [facility] Comment on above: Order Comment: Waive d Testing in the ED is performed under the ED CLIA certificate #[id number]. Result Comment: [email or web address] Performed By: #### L [id number] ####[facility] ([facility]AKER)[address] [place] [address] Glucose [Mass/Vol] 199 mg/dL High 70-105 [facility] Comment on above: Order Comment: Waive d Testing in the ED is performed under the ED CLIA certificate #[id number]. Result Comment: [email or web address] Performed By: #### L [id number] ####[facility] ([facility]ER)[address] [place] [address] Glucose [Mass/Vol] 202 mg/dL High 70-105 [facility] Comment on above: Order Comment: Waive d Testing in the ED is performed under the ED CLIA certificate #[id number]. Result Comment: than sen2 Performed By: #### L [id number] ####[facility] ([facility])[address] [place] [address] Glucose [Mass/Vol] 233 mg/dL High 70-105 [facility] Comment on above: Order Comment: Waive d Testing in the ED is performed under the ED CLIA certificate #[id number]. Result Comment: than sen2 Performed By: #### L [id number] ####[facility] [place] [address] Glucose [Mass/Vol] 253 mg/dL High 70-105 [facility] Comment on above: Order Comment: Waive d Testing in the ED is performed under the ED CLIA certificate #[id number]. Result Comment: [email or web address] Performed By: #### L [id number] ####[facility] (BEAKER)[address] [place] [address] Glucose [Mass/Vol] 279 mg/dL High 70-105 [facility] Comment on above: Order Comment: Waive d Testing in the ED is performed under the ED CLIA certificate #[id number]. Result Comment: than sen2 Performed By: #### L [id number] ####[facility] ([facility]ER)[address] [place] [address] Glucose [Mass/Vol] 270 mg/dL High 70-105 [facility] Comment on above: Order Comment: Waive d Testing in the ED is performed under the ED CLIA certificate #[id number]. Result Comment: than sen2 Performed By: #### L [id number] ####[facility] ([facility]ER)[address] [place] [address] Glucose [Mass/Vol] 267 mg/dL High 70-105 [facility] Comment on above: Order Comment: Waive d Testing in the ED is performed under the ED CLIA certificate #[id number]. Result Comment: [email or web address] Performed By: #### L [id number] ####[facility] ([facility])[address] [place] [address] POTASSIUM, WHOLE BLOODon Potassium [Moles/Vol] 4.4 mmol/L Normal 3.5-5.1 [facility] Comment on above: Performed By: #### P OTASSIUM, WHOLE BLOOD ####[facility] [id number] [place] [address] [place] SODIUM, WHOLE BLOODon 2022 SODIUM, WHOLE BLOOD 141 Normal 136-145 [facility] Comment on above: Performed By: #### S ODIUM, WHOLE BLOOD ####[facility] [id number] [place] [address] [place] TROPONIN Ion 04-24-2023 Troponin I.cardiac [Mass/Vol] 34.92 ng/mL Critically high 0.00-0.04 [facility] Comment on above: Result Comment: Prev ious result verified on 04/23/2023 2259 on specimen/case [id number] called with component Troponin I for procedure Troponin I with value 22.65 ng/mL. Performed By: #### L [id number] ####[facility] ([facility])[address] [place] [address] 30on 04-23-2023 30 Normal [facility] 30 Normal [facility] AMYLASEon 04-23-2023 Amylase [Catalytic activity/Vol] 86 U/L Normal 29- 103 [facility] Comment on above: Performed By: #### L [id number] ####[facility] ([facility])[address] [place] [address] APTTon 04-23-2023 ACTIVATED PARTIAL THROMBOPLASTIN TIME IN PPP BY COAGULATION ASSAY 45.1 Seconds High 25.0-35.0 [facility] Comment on above: Result Comment: Clin ical significance of the APTT is questionable in the presence of heparin. Performed By: #### L [id number] ####[facility] (BEAKER)[address] [place] [address] ACTIVATED PARTIAL THROMBOPLASTIN TIME IN PPP BY COAGULATION ASSAY 49.0 Seconds High 25.0-35.0 [facility] Comment on above: Result Comment: Clin ical significance of the APTT is questionable in the presence of heparin. Performed By: #### L [id number] ####[facility] (BEAKER)[address] [place] [address] ARTERIAL BLOOD GAS WITH IONI ZED CALCIUMon 04-23-2023 Base excess Calc (Bld) [Moles/Vol] -16.57585 mmol/L Low -2.0-3.0 [facility] Comment on above: Performed By: #### L [id number] ####[facility] [id number] [address] [facility] [place] [address] [facility] CALCIUM IONIZED (MMOL/L) IN BLOOD 1.15 mmol/L Normal 1.15-1.33 [facility] Comment on above: Performed By: #### L [id number] ####[facility] RESPIR[facility] [id number] [place] [address] [place] CO2 (Bld) [Partial pressure] 20 mm[Hg] Invalid Interpretation Code 35-48 [facility] Comment on above: Performed By: #### L [id number] ####[facility] RESPIR[facility] [id number] [place] [address] [place] HCO3 (Bld) [Moles/Vol] 8.8 mmol/L Low 21.0-28.0 [facility] Comment on above: Performed By: #### L [id number] ####[facility] [id number] [place] [address] [place] LPM 2 Normal [facility] Comment on above: Performed By: #### L [id number] ####[facility] [id number] [address] [facility] [place] [address] [place] Oxygen (Bld) [Partial pressure] 67 mm[Hg] Low 83-1 00 [facility] Comment on above: Performed By: #### L [id number] ####[facility] RESP[facility] [id number] [place] [address] [facility] OXYGEN SATURATION (%) IN ARTERIAL BLOOD 93.6 % Low 94.0-98.0 [facility] Comment on above: Performed By: #### L [id number] ####[facility] RES[facility] [id number] [place] [address] [facility] pH (Bld) 7.25 [pH] Low 7.35-7.45 [facility] Comment on above: Performed By: #### L [id number] ####[facility] RESPIR[facility] [id number] [place] [address] [facility] SOURCE OF OXYGEN Nasal cannula Normal [facility] Comment on above: Performed By: #### L [id number] ####[facility] RESP[facility] [id number] [place] [address] [facility] Base excess Calc (Bld) [Moles/Vol] -15.84190 mmol/L Low -2.0-3.0 [facility] Comment on above: Order Comment: On ar rival to CVU Performed By: #### L [id number] ####[facility] RES[facility] [id number] [place] [address] [facility] CALCIUM IONIZED (MMOL/L) IN BLOOD 1.16 mmol/L Normal 1.15-1.33 [facility] Comment on above: Order Comment: On ar rival to CVU Performed By: #### L [id number] ####[facility] RESP[facility] [id number] [place] [address] [facility] CO2 (Bld) [Partial pressure] 21 mm[Hg] Invalid Interpretation Code 35-48 [facility] Comment on above: Order Comment: On ar rival to CVU Performed By: #### L [id number] ####[facility] RES[facility] [id number] [place] [address] [facility] HCO3 (Bld) [Moles/Vol] 9.6 mmol/L Low 21.0-28.0 [facility] Comment on above: Order Comment: On ar rival to CVU Performed By: #### L [id number] ####[facility] RESPIR[facility] [id number] [place] [address] [facility] Oxygen (Bld) [Partial pressure] 63 mm[Hg] Low 83-1 00 [facility] Comment on above: Order Comment: On ar rival to CVU Performed By: #### L [id number] ####[facility] RESP[facility] [id number] [place] [address] [facility] OXYGEN SATURATION (%) IN ARTERIAL BLOOD 92.2 % Low 94.0-98.0 [facility] Comment on above: Order Comment: On ar rival to CVU Performed By: #### L [id number] ####[facility] RESP[facility] [id number] [place] [address] [facility] pH (Bld) 7.27 [pH] Low 7.35-7.45 [facility] Comment on above: Order Comment: On ar rival to CVU Performed By: #### L [id number] ####[facility] RESP[facility] [id number] [place] [address] [facility] SOURCE OF OXYGEN Nasal cannula Normal [facility] Comment on above: Order Comment: On ar rival to CVU Performed By: #### L [id number] ####[facility] RES[facility] [id number] [place] [address] [facility] Anesthesiaon 04-23-2023 Anesthesia [id number] Gui Ortiz 1955 M Date Provider Department Center 04/23/2023 KAUSHAL [facility] SICU None Family History Family history unknown: Yes Normal [facility] BASIC METABOLIC PANELon 11-0 Anion gap [Moles/Vol] 10 mmol/L Normal 7-20 [facility] Comment on above: Performed By: #### L [id number] ####[facility] (BEAKER)[address] [place] [address] Calcium [Mass/Vol] 8.4 mg/dL Low 8.6-10.3 [facility] Comment on above: Performed By: #### L [id number] ####[facility] ([facility]ER)[address] [place] [address] Chloride [Moles/Vol] 114 mmol/L High 98-107 [facility] Comment on above: Performed By: #### L [id number] ####[facility])[address] [place] [address] CO2 [Moles/Vol] 25 mmol/L Normal 21-31 [facility] Comment on above: Performed By: #### L [id number] ####[facility])[address] [place] [address] Creatinine [Mass/Vol] 0.86 mg/dL Normal 0.70-1.30 [facility] Comment on above: Performed By: #### L [id number] ####[facility])[address] [place] [address] GLOMERULAR FILTRATION RATE ML/MIN/1.73 SQ M.PREDICTED 93.7 mL/min/1.73m*2 Normal >60.[address] [facility] Comment on above: Result Comment: [facility]???s estimated glomerular filtration rate (eGFR) will no longer include consideration of race in its calculation. The National Kidney Foundation???s eGFR Task Force developed new recommendations for the estimation of the glomerular filtration rate in the [place] They recommend immediate implementation of the new equation refit without the race variable in all laboratories because the calculation does not include race. In addition to not including race in the calculation and reporting, it included diversity in its development, and has acceptable performance characteristics and potential consequences that do not disproportionately affect any one group of individuals. Performed By: #### L [id number] ####[facility])[address] [place] [address] Glucose [Mass/Vol] 86 mg/dL Normal 70-100 [facility] Comment on above: Performed By: #### L [id number] ####[facility])[address] [place] [address] Potassium [Moles/Vol] 3.9 mmol/L Normal 3.5-5.1 [facility] Comment on above: Performed By: #### L [id number] ####[facility] (BEAKER)[address] [place] [address] Sodium [Moles/Vol] 145 mmol/L Normal 136-145 [facility] Comment on above: Performed By: #### L [id number] ####[facility] (BEAKER)[address] [place] [address] Urea nitrogen [Mass/Vol] 19 mg/dL Normal 7-25 [facility] Comment on above: Performed By: #### L [id number] ####[facility] (BEAKER)[address] [place] [address] UREA NITROGEN/CREATININE (MA SS RATIO) IN SER/PLAS 22.1 Normal [facility] Comment on above: Performed By: #### L [id number] ####[facility] (BEAKER)[address] [place] [address] CALCIUM, IONIZEDon CALCIUM IONIZED (MMOL/L) IN BLOOD 1.21 mmol/L Normal 1.15-1.33 [facility] Comment on above: Performed By: #### C ALCIUM, IONIZED ####[facility] RESPIR[facility] [id number] [place] [address] [facility] CALCIUM IONIZED (MMOL/L) IN BLOOD 1.19 mmol/L Normal 1.15-1.33 [facility] Comment on above: Performed By: #### C ALCIUM, IONIZED ####[facility] RES[facility] [id number] [place] [address] [facility] CALCIUM IONIZED (MMOL/L) IN BLOOD 1.07 mmol/L Low 1.15-1.33 [facility] Comment on above: Performed By: #### C ALCIUM, IONIZED ####[facility] RESP[facility] [id number] [place] [address] [facility] CBCon 04-23-2023 Erythrocyte distribution wid th (RBC) [Ratio] 13.3 % Normal 11.5-15.0 [facility] Comment on above: Performed By: #### L [id number] ####[facility] (BEAKER)[address] [place] [address] ERYTHROCYTE MEAN CORPUSCULAR HEMOGLOBIN CONCENTRATION (G/DL) BY AUTOMATED 34.2 g/dL Normal 32.0-35.0 [facility] Comment on above: Performed By: #### L [id number] ####[facility] ([facility])[address] [place] [address] Hematocrit (Bld) [Volume fraction] 22.5 % Low 39.0-55.0 [facility] Comment on above: Performed By: #### L [id number] ####[facility] ([facility])[address] [place] [address] Hemoglobin (Bld) [Mass/Vol] 7.7 g/dL Low 13.0-17. 0 [facility] Comment on above: Result Comment: Resu lts checked Performed By: #### L [id number] ####[facility] ([facility])[address] [place] [address] IMMATURE PLATELET FRACTION % 2.5 % Normal 0.8-6.3 [facility] Comment on above: Performed By: #### L [id number] ####[facility])[address] [place] [address] MCH (RBC) [Entitic mass] 31.3 pg Normal 27.0-33.0 [facility] Comment on above: Performed By: #### L [id number] ####[facility])[address] [place] [address] MCV (RBC) [Entitic vol] 91.5 fL Normal 82.0-98.[address] [facility] Comment on above: Performed By: #### L [id number] ####[facility])[address] [place] [address] PLATELETS (10*3/UL) IN BLOOD AUTOMATED COUNT 80 10*3/uL Low 150-400 [facility] Comment on above: Result Comment: Plt est 74 ok Performed By: #### L [id number] ####[facility] ([facility] [place] [address] RBC (Bld) [#/Vol] 2.46 10*6/uL Low 4.20-5.70 [facility] Comment on above: Performed By: #### L [id number] ####[facility] ([facility] [place] [address] WBC (Bld) [#/Vol] 7.84 10*3/uL Normal 4.00-10.60 [facility] Comment on above: Performed By: #### L [id number] ####[facility] ([facility])[address] [place] [address] CBC WITH AUTO DIFFERENTIALon 04-23-2023 Erythrocyte distribution wid th (RBC) [Ratio] 14.0 % Normal 11.5-15.0 [facility] Comment on above: Performed By: #### L [id number] ####[facility])[address] [place] [address] ERYTHROCYTE MEAN CORPUSCULAR HEMOGLOBIN CONCENTRATION (G/DL) BY AUTOMATED 33.9 g/dL Normal 32.0-35.0 [facility] Comment on above: Performed By: #### L [id number] ####[facility] ([facility])[address] [place] [address] Hematocrit (Bld) [Volume fraction] 18.0 % Low 39.0-55.0 [facility] Comment on above: Performed By: #### L [id number] ####[facility] ([facility])[address] [place] [address] Hemoglobin (Bld) [Mass/Vol] 6.1 g/dL Low 13.0-17. 0 [facility] Comment on above: Performed By: #### L [id number] ####[facility] ([facility])[address] [place] [address] IMMATURE PLATELET FRACTION % 3.6 % Normal 0.8-6.3 [facility] Comment on above: Performed By: #### L [id number] ####[facility] ([facility])[address] [place] [address] MCH (RBC) [Entitic mass] 31.4 pg Normal 27.0-33.0 [facility] Comment on above: Performed By: #### L [id number] ####[facility] ([facility])[address] [place] [address] MCV (RBC) [Entitic vol] 92.8 fL Normal 82.0-98.[address] [facility] Comment on above: Performed By: #### L [id number] ####[facility] ([facility])[address] [place] [address] NRBC (PER 100 WBCS) BY AUTOM ATED COUNT 0.0 % Normal 0 [facility] Comment on above: Performed By: #### L [id number] ####[facility])[address] [place] [address] PLATELETS (10*3/UL) IN BLOOD AUTOMATED COUNT 68 10*3/uL Low 150-400 [facility] Comment on above: Performed By: #### L [id number] ####[facility])[address] [place] [address] RBC (Bld) [#/Vol] 1.94 10*6/uL Low 4.20-5.70 [facility] Comment on above: Performed By: #### L [id number] ####[facility] ([facility])[address] [place] [address] WBC (Bld) [#/Vol] 12.79 10*3/uL High 4.00-10.60 [facility] Comment on above: Performed By: #### L [id number] ####[facility] ([facility])[address] [place] [address] CK TOTAL AND CKMBon 04-23-20 CREATINE KINASE (U/L) IN SER/PLAS 4110.0 U/L High 30.0-223.0 [facility] Comment on above: Performed By: #### L [id number] ####[facility] ([facility])[address] [place] [address] CREATINE KINASE MB/CREATINE KINASE TOTAL BY CALCULATION 2.9 High <=1.9 [facility] Comment on above: Performed By: #### L [id number] ####[facility] (BEAKER)[address] [place] [address] CREATINE KINASE-MB (NG/ML) I N SER/PLAS 122.5 ng/mL High 0.0-5.0 [facility] Comment on above: Performed By: #### L [id number] ####[facility] (BEAKER)[address] [place] [address] CO-OXIMETRYon 04-23-2023 CARBOXYHEMOGLOBIN/HEMOGLOBIN TOTAL % IN BLOOD 1.3 % Normal [facility] Comment on above: Performed By: #### L [id number] ####[facility] RESPIRATORY [id number] [place] [address] [facility] Hemoglobin (Bld) [Mass/Vol] 7.8 g/dL Normal [facility] Comment on above: Performed By: #### L [id number] ####[facility] RESPIRATORY [id number] [place] [address] [place] METHEMOGLOBIN/100 IN BLOOD 1.0 % Normal 0.0-1.5 [facility] Comment on above: Performed By: #### L [id number] ####[facility] RESPIRATORY [id number] [place] [address] [facility] Oxygen saturation in Blood 65.8 % Normal [facility] Comment on above: Performed By: #### L [id number] ####[facility] RESPIRATORY [id number] [place] [address] [place] OXYGENATED HEMOGLOBIN IN BLOOD 64.2 % Normal [facility] Comment on above: Performed By: #### L [id number] ####[facility] RESPIRATORY [id number] [place] [address] [facility] COMPREHENSIVE METABOLIC PANE Roddy 04-23-2023 Albumin [Mass/Vol] 3.6 g/dL Normal 3.5-5.7 [facility] Comment on above: Performed By: #### L [id number] ####[facility] ([facility])[address] [place] [address] ALP [Catalytic activity/Vol] 34 U/L Normal 34-104 [facility] Comment on above: Performed By: #### L [id number] ####[facility] ([facility])[address] [place] [address] ALT [Catalytic activity/Vol] 22 U/L Normal 7-52 [facility] Comment on above: Performed By: #### L [id number] ####[facility] ([facility])[address] [place] [address] Anion gap [Moles/Vol] 21 mmol/L High 7-20 [facility] Comment on above: Performed By: #### L [id number] ####[facility] ([facility])[address] [place] [address] AST [Catalytic activity/Vol] 132 U/L High 13-39 [facility] Comment on above: Performed By: #### L [id number] ####[facility] ([facility])[address] [place] [address] Bilirubin [Mass/Vol] 0.5 mg/dL Normal 0.3-1.0 [facility] Comment on above: Performed By: #### L [id number] ####[facility] ([facility])[address] [place] [address] Calcium [Mass/Vol] 8.1 mg/dL Low 8.6-10.3 [facility] Comment on above: Performed By: #### L [id number] ####[facility] ([facility])[address] [place] [address] Chloride [Moles/Vol] 109 mmol/L High 98-107 [facility] Comment on above: Performed By: #### L [id number] ####[facility] ([facility] [place] [address] CO2 [Moles/Vol] 20 mmol/L Low 21-31 [facility] Comment on above: Performed By: #### L [id number] ####[facility] [place] [address] Creatinine [Mass/Vol] 1.16 mg/dL Normal 0.70-1.30 [facility] Comment on above: Performed By: #### L [id number] ####[facility])[address] [place] [address] GLOMERULAR FILTRATION RATE ML/MIN/1.73 SQ M.PREDICTED 68.2 mL/min/1.73m*2 Normal >60.[address] [facility] Comment on above: Result Comment: [facility]???s estimated glomerular filtration rate (eGFR) will no longer include consideration of race in its calculation. The National Kidney Foundation???s eGFR Task Force developed new recommendations for the estimation of the glomerular filtration rate in the [place] They recommend immediate implementation of the new equation refit without the race variable in all laboratories because the calculation does not include race. In addition to not including race in the calculation and reporting, it included diversity in its development, and has acceptable performance characteristics and potential consequences that do not disproportionately affect any one group of individuals. Performed By: #### L [id number] ####[facility])[address] [place] [address] Glucose [Mass/Vol] 255 mg/dL High 70-100 [facility] Comment on above: Performed By: #### L [id number] ####[facility])[address] [place] [address] Potassium [Moles/Vol] 4.4 mmol/L Normal 3.5-5.1 [facility] Comment on above: Performed By: #### L [id number] ####[facility])[address] [place] [address] Protein [Mass/Vol] 4.7 g/dL Low 6.0-8.3 [facility] Comment on above: Performed By: #### L [id number] ####[facility] ([facility])[address] [place] [address] Sodium [Moles/Vol] 146 mmol/L High 136-145 [facility] Comment on above: Performed By: #### L [id number] ####[facility] ([facility])[address] [place] [id number] Urea nitrogen [Mass/Vol] 21 mg/dL Normal 7-25 [facility] Comment on above: Performed By: #### L [id number] ####[facility] ([facility])[address] [place] [address] UREA NITROGEN/CREATININE (MA SS RATIO) IN SER/PLAS 18.1 Normal [facility] Comment on above: Performed By: #### L [id number] ####[facility] ([facility])[address] [place] [address] CONSULTon 04-23-2023 CONSULT Normal [facility] CONSULT Normal [facility] FIBRINOGENon 04-23-2023 Magnesium [Mass/Vol] 258 mg/dL Normal 150-425 [facility] Comment on above: Performed By: #### L [id number] ####[facility] ([facility])[address] [facility] [place] [address] LACTIC ACID WITH 4 HOUR REFL EXon 04-23-2023 LACTATE (MMOL/L) IN SER/PLAS 12.1 mmol/L Critically high 0.5-2.2 [facility] Comment on above: Result Comment: Prev ious result verified on 04/22/2023 2146 on specimen/case [id number] called with component Lactate for procedure Lactic acid, plasma with value 2.6 mmol/L. Performed By: #### L [id number] ####[facility] ([facility])[address] [place] [address] LACTIC ACID, PLASMAon 2022 LACTATE (MMOL/L) IN SER/PLAS 2.2 mmol/L Normal 0.5-2.2 [facility] Comment on above: Performed By: #### L [id number] ####[facility] ([facility])[address] [place] [address] LIPASEon 04-23-2023 LIPASE (U/L) IN SER/PLAS 12 U/L Normal 11-82 [facility] Comment on above: Performed By: #### L [id number] ####[facility] ([facility])[address] [place] [address] MAGNESIUMon 04-23-2023 Magnesium [Mass/Vol] 1.8 mg/dL Low 1.9-2.7 [facility] Comment on above: Performed By: #### L [id number] ####[facility] ([facility])[address] [place] [address] MANUAL DIFFERENTIALon 2022 BASOPHILS (10*3/UL) IN BLOOD BY CALCULATION 0.01 10*3/uL Normal 0.00-0.20 [facility] Comment on above: Performed By: #### L [id number] ####[facility] ([facility])[address] [place] [address] BASOPHILS/100 LEUKOCYTES IN BLOOD BY AUTOMATED COUNT 0.1 % Normal 0.0-1.0 [facility] Comment on above: Performed By: #### L [id number] ####[facility] ([facility])[address] [place] [address] EOSINOPHILS (10*3/UL) IN BLOOD BY CALCULATION 0.00 10*3/uL Normal 0.00-0.50 [facility] Comment on above: Performed By: #### L [id number] ####[facility] ([facility])[address] [place] [address] EOSINOPHILS/100 LEUKOCYTES I N BLOOD BY AUTOMATED COUNT 0.0 % Normal 0.0-6.0 [facility] Comment on above: Performed By: #### L [id number] ####[facility] ([facility])[address] [place] [address] IMMATURE GRANULOCYTES (10*3/UL) IN BLOOD BY CALCULATION 0.09 10*3/uL Normal 0.00-0.20 [facility] Comment on above: Performed By: #### L [id number] ####[facility] ([facility])[address] [place] [address] IMMATURE GRANULOCYTES/100 LEUKOCYTES IN BLOOD BY AUTOMATED COUNT 0.7 % Normal 0.0-1.0 [facility] Comment on above: Performed By: #### L [id number] ####[facility] ([facility])[address] [place] [address] LYMPHOCYTES (10*3/UL) IN BLO OD BY CALCULATION 0.72 10*3/uL Low 1.20-4.00 [facility] Comment on above: Performed By: #### L [id number] ####[facility] ([facility])[address], [place] [address] LYMPHOCYTES/100 LEUKOCYTES I N BLOOD BY AUTOMATED COUNT 5.6 % Low 20.0-45.0 [facility] Comment on above: Performed By: #### L [id number] ####[facility] ([facility])[address] [address] MONOCYTES (10*3/UL) IN BLOOD BY CALCUATION 0.70 10*3/uL Normal 0.10-1.00 [facility] Comment on above: Performed By: #### L [id number] ####[facility] ([facility])[address], [place] [address] MONOCYTES/100 LEUKOCYTES IN BLOOD BY AUTOMATED COUNT 5.5 % Normal 5.0-12.0 [facility] Comment on above: Performed By: #### L [id number] ####[facility] ([facility])[address], [place] [address] NEUTROPHILS (10*3/UL) IN BLO OD BY CALCULATION 11.3 10*3/uL High 1.6-7.6 [facility] Comment on above: Performed By: #### L [id number] ####[facility] ([facility])[address], [place] [address] NEUTROPHILS/100 LEUKOCYTES I N BLOOD BY AUTOMATED COUNT 88.1 % High 40.0-72.0 [facility] Comment on above: Performed By: #### L [id number] ####[facility] ([facility])[address] [place] [address] MYOGLOBIN, SERUMon 11-07-202 3 MYOGLOBIN (NG/ML) IN SER/PLAS 1832 ng/mL High 0-90 [facility] Comment on above: Result Comment: A DO UBLING OF VALUES FROM SERIAL BLOOD COLLECTIONS (1 - 2 HOURS APART) IS MORE INDICATIVE OF A M.I. THAN THE ABSOLUTE VALUE. Performed By: #### L [id number] ####[facility] ([employer])[address] [place] [address] PHOSPHORUSon 04-23-2023 Magnesium [Mass/Vol] 3.1 mg/dL Normal 2.5-5.0 [facility] Comment on above: Performed By: #### L [id number] ####[facility] ([employer])[address] [place] [address] POCT GLUCOSE METER UNSOLICIT ED RESULTSon 04-23-2023 Glucose [Mass/Vol] 267 mg/dL High 70-105 [facility] Comment on above: Order Comment: Waive d Testing in the ED is performed under the ED CLIA certificate #[id number]. Result Comment: than [email or web address] Performed By: #### L [id number] ####[facility] ([employer])[address] [place] [address] Glucose [Mass/Vol] 138 mg/dL High 70-105 [facility] Comment on above: Order Comment: Waive d Testing in the ED is performed under the ED CLIA certificate #[id number]. Result Comment: nhay man Performed By: #### L [id number] ####[facility] ([employer])[address] [place] [address] Glucose [Mass/Vol] 92 mg/dL Normal 70-105 [facility] Comment on above: Order Comment: Waive d Testing in the ED is performed under the ED CLIA certificate #[id number]. Result Comment: nhay man Performed By: #### L [id number] ####[facility] ([facility])[address] [place] [address] Glucose [Mass/Vol] 101 mg/dL Normal 70-105 [facility] Comment on above: Order Comment: Waive d Testing in the ED is performed under the ED CLIA certificate #[id number]. Result Comment: vsan [email or web address] Performed By: #### L [id number] ####[facility] ([facility])[address] [place] [address] Glucose [Mass/Vol] 91 mg/dL Normal 70-105 [facility] Comment on above: Order Comment: Waive d Testing in the ED is performed under the ED CLIA certificate #[id number]. Result Comment: vsan [email or web address] Performed By: #### L [id number] ####[facility] ([facility])[address] [place] [address] Glucose [Mass/Vol] 114 mg/dL High 70-105 [facility] Comment on above: Order Comment: Waive d Testing in the ED is performed under the ED CLIA certificate #[id number]. Result Comment: vsan [email or web address] Performed By: #### L [id number] ####[facility] ([facility])[address] [place] [address] Glucose [Mass/Vol] 123 mg/dL High 70-105 [facility] Comment on above: Order Comment: Waive d Testing in the ED is performed under the ED CLIA certificate #[id number]. Result Comment: vsan [email or web address] Performed By: #### L [id number] ####[facility] ([facility])[address] [place] [address] Glucose [Mass/Vol] 142 mg/dL High 70-105 [facility] Comment on above: Order Comment: Waive d Testing in the ED is performed under the ED CLIA certificate #[id number]. Result Comment: vsan [email or web address] Performed By: #### L [id number] ####[facility] ([facility])[address] [place] [address] Glucose [Mass/Vol] 152 mg/dL High 70-105 [facility] Comment on above: Order Comment: Waive d Testing in the ED is performed under the ED CLIA certificate #[id number]. Result Comment: [email or web address] [email or web address] Performed By: #### L [id number] ####[facility] ([facility])[address] [place] [address] Glucose [Mass/Vol] 167 mg/dL High 70-105 [facility] Comment on above: Order Comment: Waive d Testing in the ED is performed under the ED CLIA certificate #[id number]. Result Comment: vsan [email or web address] Performed By: #### L [id number] ####[facility] ([facility])[address] [place] [address] POTASSIUM, WHOLE BLOODon Potassium [Moles/Vol] 4.3 mmol/L Normal 3.5-5.1 [facility] Comment on above: Performed By: #### P OTASSIUM, WHOLE BLOOD ####[facility] RESPIRAT[facility] [id number] [place] [address] [facility] Potassium [Moles/Vol] 4.1 mmol/L Normal 3.5-5.1 [facility] Comment on above: Performed By: #### P OTASSIUM, WHOLE BLOOD ####[facility] RESPIRAT[facility] [id number] [place] [address] [facility] Potassium [Moles/Vol] 4.3 mmol/L Normal 3.5-5.1 [facility] Comment on above: Performed By: #### P OTASSIUM, WHOLE BLOOD ####[facility] RESPIRATORY [id number] [place] [address] [facility] PROTIME-INRon 04-23-2023 INR IN PPP BY COAGULATION ASSAY 1.98 High 0.90 -1.10 [facility] Comment on above: Result Comment: ACCCP RECOMMENDED INR FO R WARFARIN THERAPY ------CONDITION INRPROPHYLAXIS OF VENOUS THROMBOSIS 2-3(HIGH-RISK SURGERY)TREATMENT OF VENOUS THROMBOSIS 2-3TREATMENT OF PULMONARY EMBOLISM 2-3PREVENTION OF SYSTEMIC EMBOLISM: 2-3 ACUTE MYOCARDIAL INFARCTION TISSUE HEART VALVES VALVULAR HEART DISEASE ATRIAL FIBRILLATION RECURRENT SYSTEMIC EMBOLISMMECHANICAL HEART VALVE 2.5-3.5 FROM: ORAL ANTICOAGULANTS. MECHANISM OF ACTION, CLINICAL EFFECTIVENESS, AND OPTIMAL THERAPEUTIC RANGE. CHEST 1995;108:231S-246S. Performed By: #### L [id number] ####[facility] [employer])[address] [place] [address] PROTHROMBIN TIME (PT) IN PPP BY COAGULATION ASSAY 22.6 Seconds High 12.3-14.8 [facility] Comment on above: Performed By: #### L [id number] ####[facility] ([employer])[address] [place] [address] INR IN PPP BY COAGULATION ASSAY 1.47 High 0.90 -1.10 [facility] Comment on above: Result Comment: ACCCP RECOMMENDED INR FO R WARFARIN THERAPY ------CONDITION INRPROPHYLAXIS OF VENOUS THROMBOSIS 2-3(HIGH-RISK SURGERY)TREATMENT OF VENOUS THROMBOSIS 2-3TREATMENT OF PULMONARY EMBOLISM 2-3PREVENTION OF SYSTEMIC EMBOLISM: 2-3 ACUTE MYOCARDIAL INFARCTION TISSUE HEART VALVES VALVULAR HEART DISEASE ATRIAL FIBRILLATION RECURRENT SYSTEMIC EMBOLISMMECHANICAL HEART VALVE 2.5-3.5 FROM: ORAL ANTICOAGULANTS. MECHANISM OF ACTION, CLINICAL EFFECTIVENESS, AND OPTIMAL THERAPEUTIC RANGE. CHEST 1995;108:231S-246S. Performed By: #### L [id number] ####[facility] ([facility])[address] [place] [address] PROTHROMBIN TIME (PT) IN PPP BY COAGULATION ASSAY 17.9 Seconds High 12.3-14.8 [facility] Comment on above: Performed By: #### L [id number] ####[facility] ([facility])[address] [place] [address] SODIUM, WHOLE BLOODon 2022 SODIUM, WHOLE BLOOD 141 Normal 136-145 [facility] Comment on above: Performed By: #### S ODIUM, WHOLE BLOOD ####[facility] RESPIRATORY [id number] [facility] [place] [address] [place] SODIUM, WHOLE BLOOD 143 Normal 136-145 [facility] Comment on above: Performed By: #### S ODIUM, WHOLE BLOOD ####[facility] RESPIRATORY [id number] [place] [address] [place] SODIUM, WHOLE BLOOD 144 Normal 136-145 [facility] Comment on above: Performed By: #### S ODIUM, WHOLE BLOOD ####[facility] RESPIRATORY [id number] [facility] [place] [address] [place] TROPONIN Ion 04-23-2023 Troponin I.cardiac [Mass/Vol] 22.65 ng/mL Critically high 0.00-0.04 [facility] Comment on above: Result Comment: M-TR OPONIN INITIAL CRITICAL HIGH; RESPUN AND RETESTED Performed By: #### L [id number] ####[facility] ([facility])[address] [place] [address] ANESon 04-22-2023 ANES Normal [facility] APTTon 04-22-2023 ACTIVATED PARTIAL THROMBOPLASTIN TIME IN PPP BY COAGULATION ASSAY 43.4 Seconds High 25.0-35.0 [facility] Comment on above: Result Comment: Clin ical significance of the APTT is questionable in the presence of heparin. Performed By: #### L [id number] ####[facility] ([facility])[address] [place] [address] ACTIVATED PARTIAL THROMBOPLASTIN TIME IN PPP BY COAGULATION ASSAY 36.9 Seconds High 25.0-35.0 [facility] Comment on above: Result Comment: Clin ical significance of the APTT is questionable in the presence of heparin. Performed By: #### L [id number] ####[facility] ([employer])[address] [place] [address] ACTIVATED PARTIAL THROMBOPLASTIN TIME IN PPP BY COAGULATION ASSAY 40.3 Seconds High 25.0-35.0 [facility] Comment on above: Order Comment: Pre-o p diagnosis:NSTEMI (non-ST elevated myocardial infarction) (CMS/HCC) [I21.4]Acute non-ST segment elevation myocardial infarction (CMS/HCC) [I21.4]Coronary artery disease, unspecified vessel or lesion type, unspecified whether angina present, unspecified whether makah or 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] Result Comment: Clin ical significance of the APTT is questionable in the presence of heparin. Performed By: #### L [id number] ####[facility] ([facility])[address] [place] [address] BASIC METABOLIC PANELon 11-0 6-2022 Anion gap [Moles/Vol] 9 mmol/L Normal 7-20 [facility] Comment on above: Performed By: #### L [id number] ####[facility] ([facility])[address] [place] [address] Calcium [Mass/Vol] 7.9 mg/dL Low 8.6-10.3 [facility] Comment on above: Performed By: #### L [id number] ####[facility] ([facility])[address] [place] [address] Chloride [Moles/Vol] 114 mmol/L High 98-107 [facility] Comment on above: Performed By: #### L [id number] ####[facility] ([facility])[address] [place] [address] CO2 [Moles/Vol] 25 mmol/L Normal 21-31 [facility] Comment on above: Performed By: #### L [id number] ####[facility])[address] [place] [address] Creatinine [Mass/Vol] 0.86 mg/dL Normal 0.70-1.30 [facility] Comment on above: Performed By: #### L [id number] ####[facility])[address] [place] [address] GLOMERULAR FILTRATION RATE ML/MIN/1.73 SQ M.PREDICTED 93.7 mL/min/1.73m*2 Normal >60.[address] [facility] Comment on above: Result Comment: [facility]???s estimated glomerular filtration rate (eGFR) will no longer include consideration of race in its calculation. The National Kidney Foundation???s eGFR Task Force developed new recommendations for the estimation of the glomerular filtration rate in the [place] They recommend immediate implementation of the new equation refit without the race variable in all laboratories because the calculation does not include race. In addition to not including race in the calculation and reporting, it included diversity in its development, and has acceptable performance characteristics and potential consequences that do not disproportionately affect any one group of individuals. Performed By: #### L [id number] ####[facility] ([facility])[address] [place] [address] Glucose [Mass/Vol] 162 mg/dL High 70-100 [facility] Comment on above: Performed By: #### L [id number] ####[facility])[address] [place] [address] Potassium [Moles/Vol] 4.2 mmol/L Normal 3.5-5.1 [facility] Comment on above: Performed By: #### L [id number] ####[facility] ([facility])[address] [place] [address] Sodium [Moles/Vol] 144 mmol/L Normal 136-145 [facility] Comment on above: Performed By: #### L [id number] ####[facility] ([facility])[address] [place] [address] Urea nitrogen [Mass/Vol] 19 mg/dL Normal 7-25 [facility] Comment on above: Performed By: #### L [id number] ####[facility] ([facility])[address] [place] [address] UREA NITROGEN/CREATININE (MA SS RATIO) IN SER/PLAS 22.1 Normal [facility] Comment on above: Performed By: #### L [id number] ####[facility] ([facility])[address] [place] [address] Anion gap [Moles/Vol] 7 mmol/L Normal 7-20 [facility] Comment on above: Performed By: #### L [id number] ####[facility] ([facility])[address] [place] [address] Calcium [Mass/Vol] 8.2 mg/dL Low 8.6-10.3 [facility] Comment on above: Performed By: #### L [id number] ####[facility] ([facility])[address] [place] [address] Chloride [Moles/Vol] 114 mmol/L High 98-107 [facility] Comment on above: Performed By: #### L [id number] ####[facility] ([facility])[address] [place] [address] CO2 [Moles/Vol] 29 mmol/L Normal 21-31 [facility] Comment on above: Performed By: #### L [id number] ####[facility] ([facility])[address] [place] [address] Creatinine [Mass/Vol] 0.77 mg/dL Normal 0.70-1.30 [facility] Comment on above: Performed By: #### L [id number] ####[facility] ([facility])[address] [place] [address] GLOMERULAR FILTRATION RATE ML/MIN/1.73 SQ M.PREDICTED 96.9 mL/min/1.73m*2 Normal >60.[address] [facility] Comment on above: Result Comment: [facility]???s estimated glomerular filtration rate (eGFR) will no longer include consideration of race in its calculation. The National Kidney Foundation???s eGFR Task Force developed new recommendations for the estimation of the glomerular filtration rate in the [place] They recommend immediate implementation of the new equation refit without the race variable in all laboratories because the calculation does not include race. In addition to not including race in the calculation and reporting, it included diversity in its development, and has acceptable performance characteristics and potential consequences that do not disproportionately affect any one group of individuals. Performed By: #### L [id number] ####[facility])[address] [place] [address] Glucose [Mass/Vol] 142 mg/dL High 70-100 [facility] Comment on above: Performed By: #### L [id number] ####[facility])[address] [facility] [place] [address] Potassium [Moles/Vol] 3.7 mmol/L Normal 3.5-5.1 [facility] Comment on above: Performed By: #### L [id number] ####[facility])[address] [facility] [place] [address] Sodium [Moles/Vol] 146 mmol/L High 136-145 [facility] Comment on above: Performed By: #### L [id number] ####[facility])[address] [place] [address] Urea nitrogen [Mass/Vol] 18 mg/dL Normal 7-25 [facility] Comment on above: Performed By: #### L [id number] ####[facility])[address] [facility] [place] [address] UREA NITROGEN/CREATININE (MA SS RATIO) IN SER/PLAS 23.4 Normal [facility] Comment on above: Performed By: #### L [id number] ####[facility])[address] [place] [address] Anion gap [Moles/Vol] 7 mmol/L Normal 7-20 [facility] Comment on above: Order Comment: Pre-o p diagnosis:NSTEMI (non-ST elevated myocardial infarction) (CMS/HCC) [I21.4]Acute non-ST segment elevation myocardial infarction (CMS/HCC) [I21.4]Coronary artery disease, unspecified vessel or lesion type, unspecified whether angina present, unspecified whether makah or 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] Performed By: #### L [id number] ####[facility] ([facility])[address] [facility] [place] [address] Calcium [Mass/Vol] 8.5 mg/dL Low 8.6-10.3 [facility] Comment on above: Order Comment: Pre-o p diagnosis:NSTEMI (non-ST elevated myocardial infarction) (CMS/HCC) [I21.4]Acute non-ST segment elevation myocardial infarction (CMS/HCC) [I21.4]Coronary artery disease, unspecified vessel or lesion type, unspecified whether angina present, unspecified whether makah or 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] Performed By: #### L [id number] ####[facility] ([facility])[address] [place] [address] Chloride [Moles/Vol] 116 mmol/L High 98-107 [facility] Comment on above: Order Comment: Pre-o p diagnosis:NSTEMI (non-ST elevated myocardial infarction) (CMS/HCC) [I21.4]Acute non-ST segment elevation myocardial infarction (CMS/HCC) [I21.4]Coronary artery disease, unspecified vessel or lesion type, unspecified whether angina present, unspecified whether makah or 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] Performed By: #### L [id number] ####[facility] ([facility])[address] [facility] [place] [address] CO2 [Moles/Vol] 25 mmol/L Normal 21-31 [facility] Comment on above: Order Comment: Pre-o p diagnosis:NSTEMI (non-ST elevated myocardial infarction) (CMS/HCC) [I21.4]Acute non-ST segment elevation myocardial infarction (CMS/HCC) [I21.4]Coronary artery disease, unspecified vessel or lesion type, unspecified whether angina present, unspecified whether makah or 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] Performed By: #### L [id number] ####[facility] ([facility])[address] [place] [address] Creatinine [Mass/Vol] 0.82 mg/dL Normal 0.70-1.30 [facility] Comment on above: Order Comment: Pre-o p diagnosis:NSTEMI (non-ST elevated myocardial infarction) (CMS/HCC) [I21.4]Acute non-ST segment elevation myocardial infarction (CMS/HCC) [I21.4]Coronary artery disease, unspecified vessel or lesion type, unspecified whether angina present, unspecified whether makah or 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] Performed By: #### L [id number] ####[facility])[address] [place] [address] GLOMERULAR FILTRATION RATE ML/MIN/1.73 SQ M.PREDICTED 95.1 mL/min/1.73m*2 Normal >60.[address] [facility] Comment on above: Order Comment: Pre-o p diagnosis:NSTEMI (non-ST elevated myocardial infarction) (CMS/HCC) [I21.4]Acute non-ST segment elevation myocardial infarction (CMS/HCC) [I21.4]Coronary artery disease, unspecified vessel or lesion type, unspecified whether angina present, unspecified whether makah or 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] Result Comment: [facility]???s estimated glomerular filtration rate (eGFR) will no longer include consideration of race in its calculation. The National Kidney Foundation???s eGFR Task Force developed new recommendations for the estimation of the glomerular filtration rate in the [place] They recommend immediate implementation of the new equation refit without the race variable in all laboratories because the calculation does not include race. In addition to not including race in the calculation and reporting, it included diversity in its development, and has acceptable performance characteristics and potential consequences that do not disproportionately affect any one group of individuals. Performed By: #### L [id number] ####[facility] (BEAKER)[address] [place] [address] Glucose [Mass/Vol] 198 mg/dL High 70-100 [facility] Comment on above: Order Comment: Pre-o p diagnosis:NSTEMI (non-ST elevated myocardial infarction) (CMS/HCC) [I21.4]Acute non-ST segment elevation myocardial infarction (CMS/HCC) [I21.4]Coronary artery disease, unspecified vessel or lesion type, unspecified whether angina present, unspecified whether makah or 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] Performed By: #### L [id number] ####[facility] (BEAKER)[address] [place] [address] Potassium [Moles/Vol] 3.1 mmol/L Low 3.5-5.1 [facility] Comment on above: Order Comment: Pre-o p diagnosis:NSTEMI (non-ST elevated myocardial infarction) (CMS/HCC) [I21.4]Acute non-ST segment elevation myocardial infarction (CMS/HCC) [I21.4]Coronary artery disease, unspecified vessel or lesion type, unspecified whether angina present, unspecified whether makah or 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] Performed By: #### L [id number] ####[facility] (BEAKER)[address] [place] [address] Sodium [Moles/Vol] 145 mmol/L Normal 136-145 [facility] Comment on above: Order Comment: Pre-o p diagnosis:NSTEMI (non-ST elevated myocardial infarction) (CMS/HCC) [I21.4]Acute non-ST segment elevation myocardial infarction (CMS/HCC) [I21.4]Coronary artery disease, unspecified vessel or lesion type, unspecified whether angina present, unspecified whether makah or 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] Performed By: #### L [id number] ####[facility] (BEAKER)[address] [facility] [place] [address] Urea nitrogen [Mass/Vol] 18 mg/dL Normal 7-25 [facility] Comment on above: Order Comment: Pre-o p diagnosis:NSTEMI (non-ST elevated myocardial infarction) (CMS/HCC) [I21.4]Acute non-ST segment elevation myocardial infarction (CMS/HCC) [I21.4]Coronary artery disease, unspecified vessel or lesion type, unspecified whether angina present, unspecified whether makah or 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] Performed By: #### L [id number] ####[facility] (BEAKER)[address] [place] [address] UREA NITROGEN/CREATININE (MA SS RATIO) IN SER/PLAS 22.0 Normal [facility] Comment on above: Order Comment: Pre-o p diagnosis:NSTEMI (non-ST elevated myocardial infarction) (CMS/HCC) [I21.4]Acute non-ST segment elevation myocardial infarction (CMS/HCC) [I21.4]Coronary artery disease, unspecified vessel or lesion type, unspecified whether angina present, unspecified whether makah or 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] Performed By: #### L [id number] ####[facility] ([facility])[address] [place] [address] CBCon 04-22-2023 Erythrocyte distribution wid th (RBC) [Ratio] 13.1 % Normal 11.5-15.0 [facility] Comment on above: Performed By: #### L [id number] ####[facility] ([facility])[address] [place] [address] ERYTHROCYTE MEAN CORPUSCULAR HEMOGLOBIN CONCENTRATION (G/DL) BY AUTOMATED 34.7 g/dL Normal 32.0-35.0 [facility] Comment on above: Performed By: #### L [id number] ####[facility] ([facility])[address] [place] [address] Hematocrit (Bld) [Volume fraction] 32.6 % Low 39.0-55.0 [facility] Comment on above: Performed By: #### L [id number] ####[facility] (BEAKER)[address] [place] [address] Hemoglobin (Bld) [Mass/Vol] 11.3 g/dL Low 13.0-17. 0 [facility] Comment on above: Performed By: #### L [id number] ####[facility] (BEAKER)[address] [place] [address] MCH (RBC) [Entitic mass] 31.1 pg Normal 27.0-33.0 [facility] Comment on above: Performed By: #### L [id number] ####[facility] (BEAKER)[address] [place] [address] MCV (RBC) [Entitic vol] 89.8 fL Normal 82.0-98.[address] [facility] Comment on above: Performed By: #### L [id number] ####[facility] ([facility])[address] [place] [address] PLATELETS (10*3/UL) IN BLOOD AUTOMATED COUNT 107 10*3/uL Low 150-400 [facility] Comment on above: Performed By: #### L [id number] ####[facility] ([facility])[address] [place] [address] RBC (Bld) [#/Vol] 3.63 10*6/uL Low 4.20-5.70 [facility] Comment on above: Performed By: #### L [id number] ####[facility] ([facility])[address] [place] [address] WBC (Bld) [#/Vol] 18.54 10*3/uL High 4.00-10.60 [facility] Comment on above: Performed By: #### L [id number] ####[facility] ([facility])[address] [place] [address] Erythrocyte distribution wid th (RBC) [Ratio] 13.0 % Normal 11.5-15.0 [facility] Comment on above: Order Comment: Pre-o p diagnosis:NSTEMI (non-ST elevated myocardial infarction) (CMS/HCC) [I21.4]Acute non-ST segment elevation myocardial infarction (CMS/HCC) [I21.4]Coronary artery disease, unspecified vessel or lesion type, unspecified whether angina present, unspecified whether makah or 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] Performed By: #### L [id number] ####[facility] ([facility])[address] [place] [address] ERYTHROCYTE MEAN CORPUSCULAR HEMOGLOBIN CONCENTRATION (G/DL) BY AUTOMATED 34.5 g/dL Normal 32.0-35.0 [facility] Comment on above: Order Comment: Pre-o p diagnosis:NSTEMI (non-ST elevated myocardial infarction) (CMS/HCC) [I21.4]Acute non-ST segment elevation myocardial infarction (CMS/HCC) [I21.4]Coronary artery disease, unspecified vessel or lesion type, unspecified whether angina present, unspecified whether makah or 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] Performed By: #### L [id number] ####[facility] (BEAKER)[address] [place] [address] Hematocrit (Bld) [Volume fraction] 26.7 % Low 39.0-55.0 [facility] Comment on above: Order Comment: Pre-o p diagnosis:NSTEMI (non-ST elevated myocardial infarction) (CMS/HCC) [I21.4]Acute non-ST segment elevation myocardial infarction (CMS/HCC) [I21.4]Coronary artery disease, unspecified vessel or lesion type, unspecified whether angina present, unspecified whether makah or 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] Performed By: #### L [id number] ####[facility] (BEAKER)[address] [place] [address] Hemoglobin (Bld) [Mass/Vol] 9.2 g/dL Low 13.0-17. 0 [facility] Comment on above: Order Comment: Pre-o p diagnosis:NSTEMI (non-ST elevated myocardial infarction) (CMS/HCC) [I21.4]Acute non-ST segment elevation myocardial infarction (CMS/HCC) [I21.4]Coronary artery disease, unspecified vessel or lesion type, unspecified whether angina present, unspecified whether makah or 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] Performed By: #### L [id number] ####[facility] ([employer])[address] [place] [address] MCH (RBC) [Entitic mass] 31.4 pg Normal 27.0-33.0 [facility] Comment on above: Order Comment: Pre-o p diagnosis:NSTEMI (non-ST elevated myocardial infarction) (CMS/HCC) [I21.4]Acute non-ST segment elevation myocardial infarction (CMS/HCC) [I21.4]Coronary artery disease, unspecified vessel or lesion type, unspecified whether angina present, unspecified whether makah or 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] Performed By: #### L [id number] ####[facility] ([employer])[address] [place] [address] MCV (RBC) [Entitic vol] 91.1 fL Normal 82.0-98.[address] [facility] Comment on above: Order Comment: Pre-o p diagnosis:NSTEMI (non-ST elevated myocardial infarction) (CMS/HCC) [I21.4]Acute non-ST segment elevation myocardial infarction (CMS/HCC) [I21.4]Coronary artery disease, unspecified vessel or lesion type, unspecified whether angina present, unspecified whether makah or 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] Performed By: #### L [id number] ####[facility] ([facility])[address] [place] [address] PLATELETS (10*3/UL) IN BLOOD AUTOMATED COUNT 134 10*3/uL Low 150-400 [facility] Comment on above: Order Comment: Pre-o p diagnosis:NSTEMI (non-ST elevated myocardial infarction) (CMS/HCC) [I21.4]Acute non-ST segment elevation myocardial infarction (CMS/HCC) [I21.4]Coronary artery disease, unspecified vessel or lesion type, unspecified whether angina present, unspecified whether makah or 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] Performed By: #### L [id number] ####[facility] ([facility])[address] [place] [address] RBC (Bld) [#/Vol] 2.93 10*6/uL Low 4.20-5.70 [facility] Comment on above: Order Comment: Pre-o p diagnosis:NSTEMI (non-ST elevated myocardial infarction) (CMS/HCC) [I21.4]Acute non-ST segment elevation myocardial infarction (CMS/HCC) [I21.4]Coronary artery disease, unspecified vessel or lesion type, unspecified whether angina present, unspecified whether makah or 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] Performed By: #### L [id number] ####[facility] (BEAKER)[address] [place] [address] WBC (Bld) [#/Vol] 21.16 10*3/uL High 4.00-10.60 [facility] Comment on above: Order Comment: Pre-o p diagnosis:NSTEMI (non-ST elevated myocardial infarction) (CMS/HCC) [I21.4]Acute non-ST segment elevation myocardial infarction (CMS/HCC) [I21.4]Coronary artery disease, unspecified vessel or lesion type, unspecified whether angina present, unspecified whether makah or 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] Performed By: #### L [id number] ####[facility] (BEAKER)[address] [place] [address] CBC WITH AUTO DIFFERENTIALon 04-22-2023 Basophils (Bld) [#/Vol] 0.01 10*3/uL Normal 0.00-0.20 [facility] Comment on above: Performed By: #### L [id number] ####[facility] (BEAKER)[address] [place] [address] Basophils/100 WBC (Bld) 0.1 % Normal 0.0-1.0 [facility] Comment on above: Performed By: #### L [id number] ####[facility] (BEAKER)[address] [place] [address] Eosinophils (Bld) [#/Vol] 0.00 10*3/uL Normal 0.00-0.5 0 [facility] Comment on above: Performed By: #### L [id number] ####[facility] (BEAKER)[address] [place] [address] Eosinophils/100 WBC (Bld) 0.0 % Normal 0.0-6.0 [facility] Comment on above: Performed By: #### L [id number] ####[facility] (BEAKER)[address] [place] [address] Erythrocyte distribution wid th (RBC) [Ratio] 13.2 % Normal 11.5-15.0 [facility] Comment on above: Performed By: #### L [id number] ####[facility] (BEAKER)[address] [place] [address] ERYTHROCYTE MEAN CORPUSCULAR HEMOGLOBIN CONCENTRATION (G/DL) BY AUTOMATED 35.6 g/dL High 32.0-35.0 [facility] Comment on above: Performed By: #### L [id number] ####[facility] (BEAKER)[address] [place] [address] Hematocrit (Bld) [Volume fraction] 28.4 % Low 39.0-55.0 [facility] Comment on above: Performed By: #### L [id number] ####[facility] ([facility] [place] [address] Hemoglobin (Bld) [Mass/Vol] 10.1 g/dL Low 13.0-17. 0 [facility] Comment on above: Performed By: #### L [id number] ####[facility] ([facility])[address] [place] [address] Immature granulocytes (Bld) [#/Vol] 0.10 10*3/uL Normal 0.00-0.20 [facility] Comment on above: Performed By: #### L [id number] ####[facility] ([facility])[address] [place] [address] Immature granulocytes/100 WBC (Bld) 0.7 % Normal 0.0-1.0 [facility] Comment on above: Performed By: #### L [id number] ####[facility] ([facility] [place] [address] IMMATURE PLATELET FRACTION % 2.3 % Normal 0.8-6.3 [facility] Comment on above: Performed By: #### L [id number] ####[facility] (BEAKER)[address] [place] [address] Lymphocytes (Bld) [#/Vol] 0.95 10*3/uL Low 1.20-4.0 0 [facility] Comment on above: Performed By: #### L [id number] ####[facility] (BEAKER)[address] [place] [address] Lymphocytes/100 WBC (Bld) 6.4 % Low 20.0-45.0 [facility] Comment on above: Performed By: #### L [id number] ####[facility] (BEAKER)[address] [place] [address] MCH (RBC) [Entitic mass] 31.7 pg Normal 27.0-33.0 [facility] Comment on above: Performed By: #### L [id number] ####[facility] (BEAKER)[address] [place] [address] MCV (RBC) [Entitic vol] 89.0 fL Normal 82.0-98.[address] [facility] Comment on above: Performed By: #### L [id number] ####[facility] (BEAKER)[address] [place] [address] Monocytes (Bld) [#/Vol] 1.37 10*3/uL High 0.10-1.00 [facility] Comment on above: Performed By: #### L [id number] ####[facility] (BEAKER)[address] [place] [address] Monocytes/100 WBC (Bld) 9.3 % Normal 5.0-12.[address] [facility] Comment on above: Performed By: #### L [id number] ####[facility] (BEAKER)[address] [place] [address] Neutrophils (Bld) [#/Vol] 12.36 10*3/uL High 1.60-7. 60 [facility] Comment on above: Performed By: #### L [id number] ####[facility] (BEAKER)[address] [place] [address] Neutrophils/100 WBC (Bld) 83.5 % High 40.0-72.0 [facility] Comment on above: Performed By: #### L [id number] ####[facility] (BEAKER)[address] [place] [address] NRBC (PER 100 WBCS) BY AUTOM ATED COUNT 0.0 % Normal 0 [facility] Comment on above: Performed By: #### L [id number] ####[facility] ([facility])[address] [place] [address] PLATELETS (10*3/UL) IN BLOOD AUTOMATED COUNT 108 10*3/uL Low 150-400 [facility] Comment on above: Performed By: #### L [id number] ####[facility] ([facility])[address] [place] [address] RBC (Bld) [#/Vol] 3.19 10*6/uL Low 4.20-5.70 [facility] Comment on above: Performed By: #### L [id number] ####[facility] ([facility])[address] [place] [address] WBC (Bld) [#/Vol] 14.79 10*3/uL High 4.00-10.60 [facility] Comment on above: Performed By: #### L [id number] ####[facility] ([facility])[address] [place] [address] CO-OXIMETRYon 04-22-2023 CARBOXYHEMOGLOBIN/HEMOGLOBIN TOTAL % IN BLOOD 1.5 % Normal [facility] Comment on above: Performed By: #### L [id number] ####[facility] RESPIRATORY [id number] [place] [address] [place] Hemoglobin (Bld) [Mass/Vol] 12.7 g/dL Normal [facility] Comment on above: Performed By: #### L [id number] ####[facility] RESPIRATORY [id number] [facility] [address] [place] METHEMOGLOBIN/100 IN BLOOD 0.1 % Normal 0.0-1.5 [facility] Comment on above: Performed By: #### L [id number] ####[facility] RESPIRATORY [id number] [place] [address] [place] Oxygen saturation in Blood 71.7 % Normal [facility] Comment on above: Performed By: #### L [id number] ####[facility] RESPIRATORY [id number] [place] [address] [facility] OXYGENATED HEMOGLOBIN IN BLOOD 70.6 % Normal [facility] Comment on above: Performed By: #### L [id number] ####[facility] RESPIRATORY [id number] [place] [address] [facility] CONSULTon 04-22-2023 CONSULT Normal [facility] FIBRINOGENon 04-22-2023 Magnesium [Mass/Vol] 162 mg/dL Normal 150-425 [facility] Comment on above: Order Comment: Pre-o p diagnosis:NSTEMI (non-ST elevated myocardial infarction) (CMS/HCC) [I21.4]Acute non-ST segment elevation myocardial infarction (CMS/HCC) [I21.4]Coronary artery disease, unspecified vessel or lesion type, unspecified whether angina present, unspecified whether makah or 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] Performed By: #### L [id number] ####[facility] ([facility])[address] [place] [address] HEPATIC FUNCTION PANELon Albumin [Mass/Vol] 2.5 g/dL Low 3.5-5.7 [facility] Comment on above: Performed By: #### L [id number] ####[facility] ([facility])[address] [place] [address] ALP [Catalytic activity/Vol] 54 U/L Normal 34-104 [facility] Comment on above: Performed By: #### L [id number] ####[facility] ([facility])[address] [place] [address] ALT [Catalytic activity/Vol] 10 U/L Normal 7-52 [facility] Comment on above: Performed By: #### L [id number] ####[facility] ([facility])[address] [place] [address] AST [Catalytic activity/Vol] 34 U/L Normal 13-39 [facility] Comment on above: Performed By: #### L [id number] ####[facility] ([facility])[address] [place] [address] Bilirubin [Mass/Vol] 0.6 mg/dL Normal 0.3-1.0 [facility] Comment on above: Performed By: #### L [id number] ####[facility] ([facility] [place] [address] Magnesium [Mass/Vol] 0.2 mg/dL Normal 0-0.2 [facility] Comment on above: Performed By: #### L [id number] ####[facility] ([facility])[address] [place] [address] Protein [Mass/Vol] 3.7 g/dL Low 6.0-8.3 [facility] Comment on above: Performed By: #### L [id number] ####[facility] ([facility])[address] [place] [address] HISTOLOGY - TISSUE EXAMon LAB AP CASE REPORT Normal [facility] Comment on above: Order Comment: Pre-o p diagnosis:NSTEMI (non-ST elevated myocardial infarction) (CMS/HCC) [I21.4]Acute non-ST segment elevation myocardial infarction (CMS/HCC) [I21.4]Coronary artery disease, unspecified vessel or lesion type, unspecified whether angina present, unspecified whether makah or 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] Result Comment: Surg ical Pathology Case: [id number] Provider: Chaitanya Ames MD Collected: 04/22/2023 0928Ordering Location: [facility] Main Operating Room Received: 04/22/2023 1923Pathologist: RAHEEM Wilsonpecimens: A) - Lymph Node, ANTERIOR MEDIASTINAL LYMPH NODE B) - Lymph Node, RIGHT INTERNAL MAMMARY LYMPH NODE FOR HISTOLOGY Performed By: #### L [id number] ####[facility] ([facility])[address] [place] [address] LAB AP CLINICAL INFORMATION Normal [facility] Comment on above: Order Comment: Pre-o p diagnosis:NSTEMI (non-ST elevated myocardial infarction) (CMS/HCC) [I21.4]Acute non-ST segment elevation myocardial infarction (CMS/HCC) [I21.4]Coronary artery disease, unspecified vessel or lesion type, unspecified whether angina present, unspecified whether makah or 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] Result Comment: Post -Op [id number] - NSTEMI (non-ST elevated myocardial infarction) (CMS/HCC) [ICD-10-CM]I21.4 - Acute non-ST segment elevation myocardial infarction (CMS/HCC) [ICD-10-CM]I25.10 - Coronary artery disease, unspecified vessel or lesion type, unspecified whether angina present, unspecified whether makah or transplanted heart [ICD-10-CM] Performed By: #### L [id number] ####[facility] (BEAKER)[address] [place] [address] LAB AP GROSS DESCRIPTION A. Lymph Node. [facility] Comment on above: Order Comment: Pre-o p diagnosis:NSTEMI (non-ST elevated myocardial infarction) (CMS/HCC) [I21.4]Acute non-ST segment elevation myocardial infarction (CMS/HCC) [I21.4]Coronary artery disease, unspecified vessel or lesion type, unspecified whether angina present, unspecified whether makah or 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] Result Comment: Rece ived in formalin labeled Gui Prietoa, ANTERIOR MEDIASTINAL LYMPH NODE Is a sheet of yellow ragged adipose tissue, 2.5 x 1.5 x 0.6 cm. Within the adipose tissue, two circumscribed anthracotic lymph nodes are identified, 1.1 x 0.7 x 0.4 cm and 0.8 x 0.8 x 0.5 cm. The larger lymph node is serially sectioned and submitted in 1 and the smaller node is trisected and submitted in 2. The adipose tissue is retained.Annel Gaviria' AssistantB. Lymph Node.Received in formalin labeled Gui Ortiz, RIGHT INTERNAL MAMMARY LYMPH NODE FOR HISTOLOGY Is a yellow-vargas to pale montejo rubbery and lobulated ragged fragment 1 x 0.6 x 0.4 cm. Within the adipose tissue there is a well-circumscribed 0.4 cm anthracotic lymph node. The specimen is bisected and entirely submitted in a single cassette.Annel Gaviria' Kitchen Worker Performed By: #### L [id number] ####[facility] (BEAKER)[address] [place] [address] LAB AP MICROSCOPIC DESCRIPTION Microscopic examination performed. Normal [facility] Comment on above: Order Comment: Pre-o p diagnosis:NSTEMI (non-ST elevated myocardial infarction) (CMS/HCC) [I21.4]Acute non-ST segment elevation myocardial infarction (CMS/HCC) [I21.4]Coronary artery disease, unspecified vessel or lesion type, unspecified whether angina present, unspecified whether makah or 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] Performed By: #### L [id number] ####[facility] (BEAKER)[address] [place] [address] LAB AP REPORT FINAL DIAGNOSI S NARRATIVE Normal [facility] Comment on above: Order Comment: Pre-o p diagnosis:NSTEMI (non-ST elevated myocardial infarction) (CMS/HCC) [I21.4]Acute non-ST segment elevation myocardial infarction (CMS/HCC) [I21.4]Coronary artery disease, unspecified vessel or lesion type, unspecified whether angina present, unspecified whether makah or 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] Result Comment: A. L ymph node, anterior mediastinal, regional resection: - Two benign lymph nodes with sinus histiocytosis and anthracosis (0/2).B. Lymph node, right internal mammary, regional resection: - One benign lymph node with sinus histiocytosis and anthracosis (0/1). - Minute fragment of skeletal muscle and fibroadipose tissue with focal chronic inflammation. Performed By: #### L [id number] ####[facility] (BEAKER)[address] [place] [address] HPon 04-22-2023 HP H&P reviewed. The pa tient was examined and there are no changes to the H&P. Normal [facility] LACTIC ACID WITH 4 HOUR REFL EXon 04-22-2023 LACTATE (MMOL/L) IN SER/PLAS 2.3 mmol/L High 0.5-2.2 [facility] Comment on above: Order Comment: Pre-o p diagnosis:NSTEMI (non-ST elevated myocardial infarction) (CMS/HCC) [I21.4]Acute non-ST segment elevation myocardial infarction (CMS/HCC) [I21.4]Coronary artery disease, unspecified vessel or lesion type, unspecified whether angina present, unspecified whether makah or 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] Performed By: #### L [id number] ####[facility] (BEImmunetrics)[address] [facility] [place] [address] LACTIC ACID, PLASMAon 2022 LACTATE (MMOL/L) IN SER/PLAS 2.6 mmol/L Critically high 0.5-2.2 [facility] Comment on above: Result Comment: Prev ious result verified on 04/22/2023 1906 on specimen/case [id number] called with component Lactate for procedure Lactic acid, plasma with value 2.7 mmol/L. Performed By: #### L [id number] ####[facility] (BEImmunetrics)[address] [place] [address] LACTATE (MMOL/L) IN SER/PLAS 2.7 mmol/L Critically high 0.5-2.2 [facility] Comment on above: Performed By: #### L [id number] ####[facility] (BEImmunetrics)[address] [facility] [place] [address] MAGNESIUMon 04-22-2023 Magnesium [Mass/Vol] 2.1 mg/dL Normal 1.9-2.7 [facility] Comment on above: Performed By: #### L [id number] ####[facility] (BEImmunetrics)[address] [place] [address] Magnesium [Mass/Vol] 2.4 mg/dL Normal 1.9-2.7 [facility] Comment on above: Order Comment: Pre-o p diagnosis:NSTEMI (non-ST elevated myocardial infarction) (CMS/HCC) [I21.4]Acute non-ST segment elevation myocardial infarction (CMS/HCC) [I21.4]Coronary artery disease, unspecified vessel or lesion type, unspecified whether angina present, unspecified whether makah or 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] Performed By: #### L [id number] ####[facility] (BEImmunetrics)[address] [place] [address] OPNOTEon 04-22-2023 OPNOTE Normal [facility] PHOSPHORUSon 04-22-2023 Magnesium [Mass/Vol] 3.6 mg/dL Normal 2.5-5.0 [facility] Comment on above: Performed By: #### L [id number] ####[facility] (BEAKER)[address] [place] [address] POCT ACTIVATED CLOTTING TIME UNSOLICITED RESULTSon 04-22-2023 POC ACTIVATED CLOTTING TIME 132 sec Normal 82-152 [facility] Comment on above: Performed By: #### L [id number] ####[facility] (BEAKER)[address] [place] [address] POC ACTIVATED CLOTTING TIME 341 sec High 82-152 [facility] Comment on above: Performed By: #### L [id number] ####[facility] (BEAKER)[address] [place] [address] POC ACTIVATED CLOTTING TIME 473 sec High 82-152 [facility] Comment on above: Performed By: #### L [id number] ####[facility] (BEAKER)[address] [place] [address] POC ACTIVATED CLOTTING TIME 516 sec High 82-152 [facility] Comment on above: Performed By: #### L [id number] ####[facility] (BEAKER)[address] [place] [address] POC ACTIVATED CLOTTING TIME 460 sec High 82-152 [facility] Comment on above: Performed By: #### L [id number] ####[facility] (BEAKER)[address] [place] [address] POC ACTIVATED CLOTTING TIME 446 sec High 82-152 [facility] Comment on above: Performed By: #### L [id number] ####[facility] (BEAKER)[address] [place] [address] POC ACTIVATED CLOTTING TIME 479 sec High 82-152 [facility] Comment on above: Performed By: #### L [id number] ####[facility] (BEAKER)[address] [place] [address] POC ACTIVATED CLOTTING TIME 447 sec High 82-152 [facility] Comment on above: Performed By: #### L [id number] ####[facility] ([facility])[address] [place] [address] POC ACTIVATED CLOTTING TIME 596 sec High 82-152 [facility] Comment on above: Performed By: #### L [id number] ####[facility] ([facility])[address] [place] [address] POC ACTIVATED CLOTTING TIME 602 sec High 82-152 [facility] Comment on above: Performed By: #### L [id number] ####[facility] ([facility])[address] [place] [address] POC ACTIVATED CLOTTING TIME 143 sec Normal 82-152 [facility] Comment on above: Performed By: #### L [id number] ####[facility] ([facility])[address] [place] [address] POCT GLUCOSE METER UNSOLICIT ED RESULTSon 04-22-2023 Glucose [Mass/Vol] 156 mg/dL High 70-105 [facility] Comment on above: Order Comment: Waive d Testing in the ED is performed under the ED CLIA certificate #[id number]. Result Comment: [email or web address] Performed By: #### L [id number] ####[facility] ([facility])[address] [place] [address] Glucose [Mass/Vol] 121 mg/dL High 70-105 [facility] Comment on above: Order Comment: Waive d Testing in the ED is performed under the ED CLIA certificate #[id number]. Result Comment: [email or web address] [email or web address] Performed By: #### L [id number] ####[facility] ([facility])[address] [place] [address] Glucose [Mass/Vol] 122 mg/dL High 70-105 [facility] Comment on above: Order Comment: Waive d Testing in the ED is performed under the ED CLIA certificate #[id number]. Result Comment: [email or web address] man Performed By: #### L [id number] ####[facility] ([facility] [place] [address] Glucose [Mass/Vol] 137 mg/dL High 70-105 [facility] Comment on above: Order Comment: Waive d Testing in the ED is performed under the ED CLIA certificate #[id number]. Result Comment: cfit [email or web address] Performed By: #### L [id number] ####[facility] ([facility])[address] [place] [address] Glucose [Mass/Vol] 107 mg/dL High 70-105 [facility] Comment on above: Order Comment: Waive d Testing in the ED is performed under the ED CLIA certificate #[id number]. Result Comment: hste [email or web address] Performed By: #### L [id number] ####[facility] ([facility])[address] [place] [address] POCT PERFUSION PANEL UNSOLIC ITED RESULTSon 04-22-2023 CO2 [Moles/Vol] 25.0 mmol/L Normal 21.0-29.0 [facility] Comment on above: Performed By: #### L [id number] ####[facility] ([facility])[address] [place] [address] Glucose [Mass/Vol] 195 mg/dL High 70-105 [facility] Comment on above: Performed By: #### L [id number] ####[facility] ([facility])[address] [place] [address] HCO3 (Bld) [Moles/Vol] 23.6 mmol/L Normal 23.0-28.0 [facility] Comment on above: Performed By: #### L [id number] ####[facility] ([facility])[address] [place] [address] Hematocrit (Bld) [Volume fraction] 27 % Low 3 8-51 [facility] Comment on above: Performed By: #### L [id number] ####[facility] ([facility])[address] [place] [address] Hemoglobin (Bld) [Mass/Vol] 9.2 g/dL Low 12.0-17. 0 [facility] Comment on above: Performed By: #### L [id number] ####[facility] (BEAKER)[address] [place] [address] POCT BASE EXCESS -3.0 mmol/L Low -2.0-3.0 [facility] Comment on above: Performed By: #### L [id number] ####[facility] ([facility])[address] [address] POCT IONIZED CALCIUM 1.35 mmol/L High 1.12-1.32 [facility] Comment on above: Performed By: #### L [id number] ####[facility] ([facility])[address] [place] [address] POCT PCO2 47.6 mmHg Normal 41.0-51.0 [facility] Comment on above: Performed By: #### L [id number] ####[facility] ([facility])[address] [place] [address] POCT PH 7.30 Low 7.31-7.41 [facility] Comment on above: Performed By: #### L [id number] ####[facility] (BEAKER)[address] [place] [address] POCT PO2 355 mmHg High 80-105 [facility] Comment on above: Performed By: #### L [id number] ####[facility] ([facility])[address] [place] [address] POCT SO2 100 % High 95-98 [facility] Comment on above: Performed By: #### L [id number] ####[facility] ([facility])[address], [place] [address] Potassium [Moles/Vol] 3.2 mmol/L Low 3.5-4.9 [facility] Comment on above: Performed By: #### L [id number] ####[facility] (BEAKER)[address] [place] [address] Sodium [Moles/Vol] 146 mmol/L Normal 138.0-146.0 [facility] Comment on above: Performed By: #### L [id number] ####[facility] (BEAKER)[address] [place] [address] CO2 [Moles/Vol] 26.0 mmol/L Normal 21.0-29.0 [facility] Comment on above: Performed By: #### L [id number] ####[facility] (BEAKER)[address] [place] [address] Glucose [Mass/Vol] 196 mg/dL High 70-105 [facility] Comment on above: Performed By: #### L [id number] ####[facility] (BEAKER)[address] [place] [address] HCO3 (Bld) [Moles/Vol] 24.2 mmol/L Normal 23.0-28.0 [facility] Comment on above: Performed By: #### L [id number] ####[facility] (BEAKER)[address] [place] [address] Hematocrit (Bld) [Volume fraction] 21 % Low 3 8-51 [facility] Comment on above: Performed By: #### L [id number] ####[facility] (BEAKER)[address] [place] [address] Hemoglobin (Bld) [Mass/Vol] 7.1 g/dL Low 12.0-17. 0 [facility] Comment on above: Performed By: #### L [id number] ####[facility] (BEAKER)[address] [place] [address] POCT BASE EXCESS -3.0 mmol/L Low -2.0-3.0 [facility] Comment on above: Performed By: #### L [id number] ####[facility] (BEAKER)[address] [place] [address] POCT IONIZED CALCIUM 1.19 mmol/L Normal 1.12-1.32 [facility] Comment on above: Performed By: #### L [id number] ####[facility] (BEAKER)[address] [place] [address] POCT PCO2 52.4 mmHg High 41.0-51.0 [facility] Comment on above: Performed By: #### L [id number] ####[facility] (BEAKER)[address] [place] [address] POCT PH 7.27 Low 7.31-7.41 [facility] Comment on above: Performed By: #### L [id number] ####[facility] (BEAKER)[address] [place] [address] POCT PO2 488 mmHg High 80-105 [facility] Comment on above: Performed By: #### L [id number] ####[facility] (BEAKER)[address] [place] [address] POCT SO2 100 % High 95-98 [facility] Comment on above: Performed By: #### L [id number] ####[facility] (BEAKER)[address] [place] [address] Potassium [Moles/Vol] 3.7 mmol/L Normal 3.5-4.9 [facility] Comment on above: Performed By: #### L [id number] ####[facility] (BEAKER)[address] [place] [address] Sodium [Moles/Vol] 145 mmol/L Normal 138.0-146.0 [facility] Comment on above: Performed By: #### L [id number] ####[facility] (BEAKER)[address] [place] [address] CO2 [Moles/Vol] 24.0 mmol/L Normal 21.0-29.0 [facility] Comment on above: Performed By: #### L [id number] ####[facility] (BEAKER)[address] [place] [address] Glucose [Mass/Vol] 177 mg/dL High 70-105 [facility] Comment on above: Performed By: #### L [id number] ####[facility] (BEAKER)[address] [address] HCO3 (Bld) [Moles/Vol] 22.2 mmol/L Low 23.0-28.[address] [facility] Comment on above: Performed By: #### L [id number] ####[facility] (BEAKER)[address] [address] Hematocrit (Bld) [Volume fraction] 21 % Low 3 8-51 [facility] Comment on above: Performed By: #### L [id number] ####[facility] (BEAKER)[address] [address] Hemoglobin (Bld) [Mass/Vol] 7.1 g/dL Low 12.0-17. 0 [facility] Comment on above: Performed By: #### L [id number] ####[facility] (BEAKER)[address] [address] POCT BASE EXCESS -4.0 mmol/L Low -2.0-3.0 [facility] Comment on above: Performed By: #### L [id number] ####[facility] (BEAKER)[address] [address] POCT IONIZED CALCIUM 1.32 mmol/L Normal 1.12-1.32 [facility] Comment on above: Performed By: #### L [id number] ####[facility] (BEAKER)[address] [address] POCT PCO2 44.7 mmHg Normal 41.0-51.0 [facility] Comment on above: Performed By: #### L [id number] ####[facility] (BEAKER)[address] [address] POCT PH 7.30 Low 7.31-7.41 [facility] Comment on above: Performed By: #### L [id number] ####[facility] (BEAKER)[address] [place] [address] POCT PO2 449 mmHg High 80-105 [facility] Comment on above: Performed By: #### L [id number] ####[facility] ([facility])[address] [place] [address] POCT SO2 100 % High 95-98 [facility] Comment on above: Performed By: #### L [id number] ####[facility] ([facility])[address] [place] [address] Potassium [Moles/Vol] 4.4 mmol/L Normal 3.5-4.9 [facility] Comment on above: Performed By: #### L [id number] ####[facility] ([facility])[address] [place] [address] Sodium [Moles/Vol] 141 mmol/L Normal 138.0-146.0 [facility] Comment on above: Performed By: #### L [id number] ####[facility] ([facility])[address] [place] [address] CO2 [Moles/Vol] 25.0 mmol/L Normal 21.0-29.0 [facility] Comment on above: Performed By: #### L [id number] ####[facility] ([facility])[address] [place] [address] Glucose [Mass/Vol] 171 mg/dL High 70-105 [facility] Comment on above: Performed By: #### L [id number] ####[facility] ([facility])[address] [place] [address] HCO3 (Bld) [Moles/Vol] 24.0 mmol/L Normal 23.0-28.0 [facility] Comment on above: Performed By: #### L [id number] ####[facility] (BEAKER)[address] [place] [address] Hematocrit (Bld) [Volume fraction] 26 % Low 3 8-51 [facility] Comment on above: Performed By: #### L [id number] ####[facility] (BEAKER)[address] [place] [address] Hemoglobin (Bld) [Mass/Vol] 8.8 g/dL Low 12.0-17. 0 [facility] Comment on above: Performed By: #### L [id number] ####[facility] (BEAKER)[address] [place] [address] POCT BASE EXCESS -1.0 mmol/L Normal -2.0-3.0 [facility] Comment on above: Performed By: #### L [id number] ####[facility] (BEAKER)[address] [place] [address] POCT IONIZED CALCIUM 1.06 mmol/L Low 1.12-1.32 [facility] Comment on above: Performed By: #### L [id number] ####[facility] (BEAKER)[address] [place] [address] POCT PCO2 38.1 mmHg Low 41.0-51.0 [facility] Comment on above: Performed By: #### L [id number] ####[facility] (BEAKER)[address] [place] [address] POCT PH 7.41 Normal 7.31-7.41 [facility] Comment on above: Performed By: #### L [id number] ####[facility] (BEAKER)[address] [place] [address] POCT PO2 534 mmHg High 80-105 [facility] Comment on above: Performed By: #### L [id number] ####[facility] (BEAKER)[address] [place] [address] POCT SO2 100 % High 95-98 [facility] Comment on above: Performed By: #### L [id number] ####[facility] (BEAKER)[address] [place] [address] Potassium [Moles/Vol] 4.1 mmol/L Normal 3.5-4.9 [facility] Comment on above: Performed By: #### L [id number] ####[facility] (BEAKER)[address] [place] [address] Sodium [Moles/Vol] 141 mmol/L Normal 138.0-146.0 [facility] Comment on above: Performed By: #### L [id number] ####[facility] (BEAKER)[address] [place] [address] CO2 [Moles/Vol] 27.0 mmol/L Normal 21.0-29.0 [facility] Comment on above: Performed By: #### L [id number] ####[facility] (BEAKER)[address] [place] [address] Glucose [Mass/Vol] 187 mg/dL High 70-105 [facility] Comment on above: Performed By: #### L [id number] ####[facility] (BEAKER)[address] [place] [address] HCO3 (Bld) [Moles/Vol] 25.8 mmol/L Normal 23.0-28.0 [facility] Comment on above: Performed By: #### L [id number] ####[facility] (BEAKER)[address] [place] [address] Hematocrit (Bld) [Volume fraction] 26 % Low 3 8-51 [facility] Comment on above: Performed By: #### L [id number] ####[facility] (BEAKER)[address] [place] [address] Hemoglobin (Bld) [Mass/Vol] 8.8 g/dL Low 12.0-17. 0 [facility] Comment on above: Performed By: #### L [id number] ####[facility] (BEAKER)[address] [place] [address] POCT BASE EXCESS 1.0 mmol/L Normal -2.0-3.0 [facility] Comment on above: Performed By: #### L [id number] ####[facility] (BEAKER)[address] [place] [address] POCT IONIZED CALCIUM 1.06 mmol/L Low 1.12-1.32 [facility] Comment on above: Performed By: #### L [id number] ####[facility] ([facility])[address] [address] POCT PCO2 40.4 mmHg Low 41.0-51.0 [facility] Comment on above: Performed By: #### L [id number] ####[facility] ([facility])[address] [address] POCT PH 7.41 Normal 7.31-7.41 [facility] Comment on above: Performed By: #### L [id number] ####[facility] ([facility])[address] [address] POCT PO2 506 mmHg High 80-105 [facility] Comment on above: Performed By: #### L [id number] ####[facility] ([facility])[address] [address] POCT SO2 100 % High 95-98 [facility] Comment on above: Performed By: #### L [id number] ####[facility] ([facility])[address] [address] Potassium [Moles/Vol] 4.2 mmol/L Normal 3.5-4.9 [facility] Comment on above: Performed By: #### L [id number] ####[facility] ([facility])[address] [address] Sodium [Moles/Vol] 141 mmol/L Normal 138.0-146.0 [facility] Comment on above: Performed By: #### L [id number] ####[facility] ([facility])[address] [address] CO2 [Moles/Vol] 23.0 mmol/L Normal 21.0-29.0 [facility] Comment on above: Performed By: #### L [id number] ####[facility] ([facility])[address] [place] [address] Glucose [Mass/Vol] 211 mg/dL High 70-105 [facility] Comment on above: Performed By: #### L [id number] ####[facility] (BEAKER)[address] [place] [address] HCO3 (Bld) [Moles/Vol] 22.1 mmol/L Low 23.0-28.[address] [facility] Comment on above: Performed By: #### L [id number] ####[facility] (BEAKER)[address] [place] [address] Hematocrit (Bld) [Volume fraction] 28 % Low 3 8-51 [facility] Comment on above: Performed By: #### L [id number] ####[facility] (BEAKER)[address] [place] [address] Hemoglobin (Bld) [Mass/Vol] 9.5 g/dL Low 12.0-17. 0 [facility] Comment on above: Performed By: #### L [id number] ####[facility] (BEAKER)[address] [place] [address] POCT BASE EXCESS -3.0 mmol/L Low -2.0-3.0 [facility] Comment on above: Performed By: #### L [id number] ####[facility] (BEAKER)[address] [place] [address] POCT IONIZED CALCIUM 1.08 mmol/L Low 1.12-1.32 [facility] Comment on above: Performed By: #### L [id number] ####[facility] (BE[facility]ER)[address] [place] [address] POCT PCO2 38.1 mmHg Low 41.0-51.0 [facility] Comment on above: Performed By: #### L [id number] ####[facility] (BEAKER)[address] [place] [address] POCT PH 7.37 Normal 7.31-7.41 [facility] Comment on above: Performed By: #### L [id number] ####[facility] (BEAKER)[address] [place] [address] POCT PO2 418 mmHg High 80-105 [facility] Comment on above: Performed By: #### L [id number] ####[facility] (BEAKER)[address] [place] [address] POCT SO2 100 % High 95-98 [facility] Comment on above: Performed By: #### L [id number] ####[facility] (BEAKER)[address] [place] [address] Potassium [Moles/Vol] 4.7 mmol/L Normal 3.5-4.9 [facility] Comment on above: Performed By: #### L [id number] ####[facility] (BEAKER)[address] [place] [address] Sodium [Moles/Vol] 137 mmol/L Low 138.0-146.0 [facility] Comment on above: Performed By: #### L [id number] ####[facility] (BEAKER)[address] [place] [address] CO2 [Moles/Vol] 24.0 mmol/L Normal 21.0-29.0 [facility] Comment on above: Performed By: #### L [id number] ####[facility] (BEAKER)[address] [place] [address] Glucose [Mass/Vol] 203 mg/dL High 70-105 [facility] Comment on above: Performed By: #### L [id number] ####[facility] (BEAKER)[address] [place] [address] HCO3 (Bld) [Moles/Vol] 22.6 mmol/L Low 23.0-28.[address] [facility] Comment on above: Performed By: #### L [id number] ####[facility] (BEAKER)[address] [place] [address] Hematocrit (Bld) [Volume fraction] 26 % Low 3 8-51 [facility] Comment on above: Performed By: #### L [id number] ####[facility] ([facility])[address] [address] Hemoglobin (Bld) [Mass/Vol] 8.8 g/dL Low 12.0-17. 0 [facility] Comment on above: Performed By: #### L [id number] ####[facility] ([facility])[address] [address] POCT BASE EXCESS -2.0 mmol/L Normal -2.0-3.0 [facility] Comment on above: Performed By: #### L [id number] ####[facility] ([facility])[address] [address] POCT IONIZED CALCIUM 1.06 mmol/L Low 1.12-1.32 [facility] Comment on above: Performed By: #### L [id number] ####[facility] ([facility])[address] [id number] POCT PCO2 38.7 mmHg Low 41.0-51.0 [facility] Comment on above: Performed By: #### L [id number] ####[facility] ([facility])[address] [address] POCT PH 7.38 Normal 7.31-7.41 [facility] Comment on above: Performed By: #### L [id number] ####[facility] ([facility])[address] [address] POCT PO2 377 mmHg High 80-105 [facility] Comment on above: Performed By: #### L [id number] ####[facility] ([facility])[address] [address] POCT SO2 100 % High 95-98 [facility] Comment on above: Performed By: #### L [id number] ####[facility] ([facility] [address] Potassium [Moles/Vol] 5.0 mmol/L High 3.5-4.9 [facility] Comment on above: Performed By: #### L [id number] ####[facility] ([facility])[address] [place] [address] Sodium [Moles/Vol] 137 mmol/L Low 138.0-146.0 [facility] Comment on above: Performed By: #### L [id number] ####[facility] (BEAKER)[address] [place] [address] CO2 [Moles/Vol] 24.0 mmol/L Normal 21.0-29.0 [facility] Comment on above: Performed By: #### L [id number] ####[facility] ([facility])[address] [place] [address] Glucose [Mass/Vol] 193 mg/dL High 70-105 [facility] Comment on above: Performed By: #### L [id number] ####[facility] (BEAKER)[address] [place] [address] HCO3 (Bld) [Moles/Vol] 23.3 mmol/L Normal 23.0-28.0 [facility] Comment on above: Performed By: #### L [id number] ####[facility] (BEAKER)[address] [place] [address] Hematocrit (Bld) [Volume fraction] 28 % Low 3 8-51 [facility] Comment on above: Performed By: #### L [id number] ####[facility] (BEAKER)[address] [place] [address] Hemoglobin (Bld) [Mass/Vol] 9.5 g/dL Low 12.0-17. 0 [facility] Comment on above: Performed By: #### L [id number] ####[facility] (BEAKER)[address] [place] [address] POCT BASE EXCESS -2.0 mmol/L Normal -2.0-3.0 [facility] Comment on above: Performed By: #### L [id number] ####[facility] ([facility])[address] [place] [address] POCT IONIZED CALCIUM 1.07 mmol/L Low 1.12-1.32 [facility] Comment on above: Performed By: #### L [id number] ####[facility] ([facility])[address] [place] [address] POCT PCO2 38.7 mmHg Low 41.0-51.0 [facility] Comment on above: Performed By: #### L [id number] ####[facility] ([facility])[address] [place] [address] POCT PH 7.39 Normal 7.31-7.41 [facility] Comment on above: Performed By: #### L [id number] ####[facility] ([facility])[address] [place] [address] POCT PO2 367 mmHg High 80-105 [facility] Comment on above: Performed By: #### L [id number] ####[facility] ([facility])[address] [place] [address] POCT SO2 100 % High 95-98 [facility] Comment on above: Performed By: #### L [id number] ####[facility] ([facility])[address] [place] [address] Potassium [Moles/Vol] 5.6 mmol/L High 3.5-4.9 [facility] Comment on above: Performed By: #### L [id number] ####[facility] ([facility])[address] [place] [address] Sodium [Moles/Vol] 138 mmol/L Normal 138.0-146.0 [facility] Comment on above: Performed By: #### L [id number] ####[facility] ([facility])[address] [place] [address] CO2 [Moles/Vol] 25.0 mmol/L Normal 21.0-29.0 [facility] Comment on above: Performed By: #### L [id number] ####[facility] ([facility]AKER)[address] [place] [address] Glucose [Mass/Vol] 165 mg/dL High 70-105 [facility] Comment on above: Performed By: #### L [id number] ####[facility] (BEAKER)[address] [address] HCO3 (Bld) [Moles/Vol] 23.5 mmol/L Normal 23.0-28.0 [facility] Comment on above: Performed By: #### L [id number] ####[facility] (BEAKER)[address] [address] Hematocrit (Bld) [Volume fraction] 27 % Low 3 8-51 [facility] Comment on above: Performed By: #### L [id number] ####[facility] (BEAKER)[address] [address] Hemoglobin (Bld) [Mass/Vol] 9.2 g/dL Low 12.0-17. 0 [facility] Comment on above: Performed By: #### L [id number] ####[facility] (BEAKER)[address] [address] POCT BASE EXCESS -1.0 mmol/L Normal -2.0-3.0 [facility] Comment on above: Performed By: #### L [id number] ####[facility] ([facility]ER)[address] [address] POCT IONIZED CALCIUM 1.08 mmol/L Low 1.12-1.32 [facility] Comment on above: Performed By: #### L [id number] ####[facility] ([facility]ER)[address] [address] POCT PCO2 38.4 mmHg Low 41.0-51.0 [facility] Comment on above: Performed By: #### L [id number] ####[facility] ([facility]ER)[address] [address] POCT PH 7.39 Normal 7.31-7.41 [facility] Comment on above: Performed By: #### L [id number] ####[facility] (BEAKER)[address] [place] [address] POCT PO2 387 mmHg High 80-105 [facility] Comment on above: Performed By: #### L [id number] ####[facility] (BEAKER)[address] [place] [address] POCT SO2 100 % High 95-98 [facility] Comment on above: Performed By: #### L [id number] ####[facility] (BEAKER)[address] [place] [address] Potassium [Moles/Vol] 5.9 mmol/L High 3.5-4.9 [facility] Comment on above: Performed By: #### L [id number] ####[facility] (BE[facility]ER)[address] [place] [address] Sodium [Moles/Vol] 138 mmol/L Normal 138.0-146.0 [facility] Comment on above: Performed By: #### L [id number] ####[facility] (BEAKER)[address] [place] [address] CO2 [Moles/Vol] 26.0 mmol/L Normal 21.0-29.0 [facility] Comment on above: Performed By: #### L [id number] ####[facility] (BEAKER)[address] [place] [address] Glucose [Mass/Vol] 142 mg/dL High 70-105 [facility] Comment on above: Performed By: #### L [id number] ####[facility] (BEAKER)[address] [place] [address] HCO3 (Bld) [Moles/Vol] 24.5 mmol/L Normal 23.0-28.0 [facility] Comment on above: Performed By: #### L [id number] ####[facility] (BEAKER)[address] [place] [address] Hematocrit (Bld) [Volume fraction] 24 % Low 3 8-51 [facility] Comment on above: Performed By: #### L [id number] ####[facility] (BEAKER)[address] [address] Hemoglobin (Bld) [Mass/Vol] 8.2 g/dL Low 12.0-17. 0 [facility] Comment on above: Performed By: #### L [id number] ####[facility] ([facility])[address] [address] POCT BASE EXCESS -1.0 mmol/L Normal -2.0-3.0 [facility] Comment on above: Performed By: #### L [id number] ####[facility] ([facility])[address] [address] POCT IONIZED CALCIUM 0.99 mmol/L Low 1.12-1.32 [facility] Comment on above: Performed By: #### L [id number] ####[facility] ([facility])[address] [place] [address] POCT PCO2 44.6 mmHg Normal 41.0-51.0 [facility] Comment on above: Performed By: #### L [id number] ####[facility] ([facility])[address] [address] POCT PH 7.35 Normal 7.31-7.41 [facility] Comment on above: Performed By: #### L [id number] ####[facility] ([facility])[address] [address] POCT PO2 462 mmHg High 80-105 [facility] Comment on above: Performed By: #### L [id number] ####[facility] ([facility])[address] [place] [address] POCT SO2 100 % High 95-98 [facility] Comment on above: Performed By: #### L [id number] ####[facility] (BEAKER)[address] [place] [address] Potassium [Moles/Vol] 6.2 mmol/L Critically high 3.5-4.9 [facility] Comment on above: Performed By: #### L [id number] ####[facility] (BEAKER)[address] [place] [address] Sodium [Moles/Vol] 136 mmol/L Low 138.0-146.0 [facility] Comment on above: Performed By: #### L [id number] ####[facility] (BEAKER)[address] [place] [address] CO2 [Moles/Vol] 24.0 mmol/L Normal 21.0-29.0 [facility] Comment on above: Performed By: #### L [id number] ####[facility] (BEAKER)[address] [place] [address] Glucose [Mass/Vol] 151 mg/dL High 70-105 [facility] Comment on above: Performed By: #### L [id number] ####[facility] (BEAKER)[address] [place] [address] HCO3 (Bld) [Moles/Vol] 22.6 mmol/L Low 23.0-28.0 [facility] Comment on above: Performed By: #### L [id number] ####[facility] (BEAKER)[address] [place] [address] Hematocrit (Bld) [Volume fraction] 38 % Normal 3 8-51 [facility] Comment on above: Performed By: #### L [id number] ####[facility] (BEAKER)[address] [place] [address] Hemoglobin (Bld) [Mass/Vol] 12.9 g/dL Normal 12.0-17. 0 [facility] Comment on above: Performed By: #### L [id number] ####[facility] (BEAKER)[address] [place] [address] POCT BASE EXCESS -4.0 mmol/L Low -2.0-3.0 [facility] Comment on above: Performed By: #### L [id number] ####[facility] (BEAKER)[address] [place] [address] POCT IONIZED CALCIUM 1.25 mmol/L Normal 1.12-1.32 [facility] Comment on above: Performed By: #### L [id number] ####[facility] (BEAKER)[address] [place] [address] POCT PCO2 47.5 mmHg Normal 41.0-51.0 [facility] Comment on above: Performed By: #### L [id number] ####[facility] (BEAKER)[address] [place] [address] POCT PH 7.29 Low 7.31-7.41 [facility] Comment on above: Performed By: #### L [id number] ####[facility] (BEAKER)[address] [place] [address] POCT PO2 336 mmHg High 80-105 [facility] Comment on above: Performed By: #### L [id number] ####[facility] (BEAKER)[address] [place] [address] POCT SO2 100 % High 95-98 [facility] Comment on above: Performed By: #### L [id number] ####[facility] (BEAKER)[address] [place] [address] Potassium [Moles/Vol] 4.4 mmol/L Normal 3.5-4.9 [facility] Comment on above: Performed By: #### L [id number] ####[facility] (BEAKER)[address] [place] [address] Sodium [Moles/Vol] 139 mmol/L Normal 138.0-146.0 [facility] Comment on above: Performed By: #### L [id number] ####[facility] (BEAKER)[address] [place] [address] CO2 [Moles/Vol] 23.0 mmol/L Normal 21.0-29.0 [facility] Comment on above: Performed By: #### L [id number] ####[facility] (BEAKER)[address] [address] Glucose [Mass/Vol] 123 mg/dL High 70-105 [facility] Comment on above: Performed By: #### L [id number] ####[facility] (BEAKER)[address] [address] HCO3 (Bld) [Moles/Vol] 22.1 mmol/L Low 23.0-28.0 [facility] Comment on above: Performed By: #### L [id number] ####[facility] (BEAKER)[address] [address] Hematocrit (Bld) [Volume fraction] 38 % Normal 3 8-51 [facility] Comment on above: Performed By: #### L [id number] ####[facility] (BEAKER)[address] [address] Hemoglobin (Bld) [Mass/Vol] 12.9 g/dL Normal 12.0-17. 0 [facility] Comment on above: Performed By: #### L [id number] ####[facility] (BEAKER)[address] [address] POCT BASE EXCESS -3.0 mmol/L Low -2.0-3.0 [facility] Comment on above: Performed By: #### L [id number] ####[facility] (BEAKER)[address] [address] POCT IONIZED CALCIUM 1.25 mmol/L Normal 1.12-1.32 [facility] Comment on above: Performed By: #### L [id number] ####[facility] (BEAKER)[address] [address] POCT PCO2 39.3 mmHg Low 41.0-51.0 [facility] Comment on above: Performed By: #### L [id number] ####[facility] (BEAKER)[address] [place] [address] POCT PH 7.36 Normal 7.31-7.41 [facility] Comment on above: Performed By: #### L [id number] ####[facility] ([facility])[address] [address] POCT PO2 412 mmHg High 80-105 [facility] Comment on above: Performed By: #### L [id number] ####[facility] ([facility])[address] [address] POCT SO2 100 % High 95-98 [facility] Comment on above: Performed By: #### L [id number] ####[facility] ([facility])[address] [place] [address] Potassium [Moles/Vol] 3.8 mmol/L Normal 3.5-4.9 [facility] Comment on above: Performed By: #### L [id number] ####[facility] ([facility])[address] [place] [address] Sodium [Moles/Vol] 140 mmol/L Normal 138.0-146.0 [facility] Comment on above: Performed By: #### L [id number] ####[facility] ([facility])[address] [place] [address] PROTIME-INRon 04-22-2023 INR IN PPP BY COAGULATION ASSAY 1.60 High 0.90 -1.10 [facility] Comment on above: Result Comment: ACCCP RECOMMENDED INR FO R WARFARIN THERAPY ------CONDITION INRPROPHYLAXIS OF VENOUS THROMBOSIS 2-3(HIGH-RISK SURGERY)TREATMENT OF VENOUS THROMBOSIS 2-3TREATMENT OF PULMONARY EMBOLISM 2-3PREVENTION OF SYSTEMIC EMBOLISM: 2-3 ACUTE MYOCARDIAL INFARCTION TISSUE HEART VALVES VALVULAR HEART DISEASE ATRIAL FIBRILLATION RECURRENT SYSTEMIC EMBOLISMMECHANICAL HEART VALVE 2.5-3.5 FROM: ORAL ANTICOAGULANTS. MECHANISM OF ACTION, CLINICAL EFFECTIVENESS, AND OPTIMAL THERAPEUTIC RANGE. CHEST 1995;108:231S-246S. Performed By: #### L [id number] ####[facility] [employer])[address] [place] [address] PROTHROMBIN TIME (PT) IN PPP BY COAGULATION ASSAY 19.1 Seconds High 12.3-14.8 [facility] Comment on above: Performed By: #### L [id number] ####[facility] [employer])[address] [place] [address] INR IN PPP BY COAGULATION ASSAY 1.72 High 0.90 -1.10 [facility] Comment on above: Result Comment: ACCCP RECOMMENDED INR FO R WARFARIN THERAPY ------CONDITION INRPROPHYLAXIS OF VENOUS THROMBOSIS 2-3(HIGH-RISK SURGERY)TREATMENT OF VENOUS THROMBOSIS 2-3TREATMENT OF PULMONARY EMBOLISM 2-3PREVENTION OF SYSTEMIC EMBOLISM: 2-3 ACUTE MYOCARDIAL INFARCTION TISSUE HEART VALVES VALVULAR HEART DISEASE ATRIAL FIBRILLATION RECURRENT SYSTEMIC EMBOLISMMECHANICAL HEART VALVE 2.5-3.5 FROM: ORAL ANTICOAGULANTS. MECHANISM OF ACTION, CLINICAL EFFECTIVENESS, AND OPTIMAL THERAPEUTIC RANGE. CHEST 1995;108:231S-246S. Performed By: #### L [id number] ####[facility] [employer])[address] [place] [address] PROTHROMBIN TIME (PT) IN PPP BY COAGULATION ASSAY 20.2 Seconds High 12.3-14.8 [facility] Comment on above: Performed By: #### L [id number] ####[facility] ([employer])[address] [place] [address] INR IN PPP BY COAGULATION ASSAY 2.00 High 0.90 -1.10 [facility] Comment on above: Order Comment: Pre-o p diagnosis:NSTEMI (non-ST elevated myocardial infarction) ([facility]) [I21.4]Acute non-ST segment elevation myocardial infarction (CMS/HCC) [I21.4]Coronary artery disease, unspecified vessel or lesion type, unspecified whether angina present, unspecified whether makah or 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] Result Comment: ACCC P RECOMMENDED INR FOR WARFARIN THERAPY ------CONDITION INRPROPHYLAXIS OF VENOUS THROMBOSIS 2-3(HIGH-RISK SURGERY)TREATMENT OF VENOUS THROMBOSIS 2- 3TREATMENT OF PULMONARY EMBOLISM 2-3PREVENTION OF SYSTEMIC EMBOLISM: 2-3 ACUTE MYOCARDIAL INFARCTION TISSUE HEART VALVES VALVULAR HEART DISEASE ATRIAL FIBRILLATION RECURRENT SYSTEMIC EMBOLISMMECHANICAL HEART VALVE 2.5-3.5 FROM: ORAL ANTICOAGULANTS. MECHANISM OF ACTION, CLINICAL EFFECTIVENESS, AND OPTIMAL THERAPEUTIC RANGE. CHEST 1995;108:231S-246S. Performed By: #### L [id number] ####[facility] ([employer])[address] [place] [address] PROTHROMBIN TIME (PT) IN PPP BY COAGULATION ASSAY 22.8 Seconds High 12.3-14.8 [facility] Comment on above: Order Comment: Pre-o p diagnosis:NSTEMI (non-ST elevated myocardial infarction) ([facility]) [I21.4]Acute non-ST segment elevation myocardial infarction (CMS/HCC) [I21.4]Coronary artery disease, unspecified vessel or lesion type, unspecified whether angina present, unspecified whether makah or 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] Performed By: #### L [id number] ####[facility] ([facility])[address] [place] [address] 36on 04-21-2023 36 Called patient and l eft voicemail. Updated NPO after midnight and not to take any medications in the AM. Surgery scheduled for 0730am. Normal [facility] ANESon 04-21-2023 ANES Normal [facility] Telephoneon 04-21-2023 Telephone [phone] OrtizGui 1955 M Date Provider Department [place] 04/21/2023 KAREY MAGANA JHVCVASENDO [place] [facility] Family History Family history unknown: Yes Normal [facility] APTTon 04-09-2023 ACTIVATED PARTIAL THROMBOPLASTIN TIME IN PPP BY COAGULATION ASSAY 34.7 Seconds Normal 25.0-35.0 [facility] Comment on above: Result Comment: Clin ical significance of the APTT is questionable in the presence of heparin. Performed By: #### L [id number] ####[facility] ([facility])[address] [place] [address] BASIC METABOLIC PANELon 10-2 Anion gap [Moles/Vol] 11 mmol/L Normal 7-20 [facility] Comment on above: Performed By: #### L [id number] ####[facility] ([facility])[address] [place] [address] Calcium [Mass/Vol] 9.8 mg/dL Normal 8.6-10.3 [facility] Comment on above: Performed By: #### L [id number] ####[facility] ([facility])[address] [place] [address] Chloride [Moles/Vol] 105 mmol/L Normal 98-107 [facility] Comment on above: Performed By: #### L [id number] ####[facility] ([facility])[address] [place] [address] CO2 [Moles/Vol] 25 mmol/L Normal 21-31 [facility] Comment on above: Performed By: #### L [id number] ####[facility] ([facility])[address] [place] [address] Creatinine [Mass/Vol] 0.91 mg/dL Normal 0.70-1.30 [facility] Comment on above: Performed By: #### L [id number] ####[facility] ([facility])[address] [place] [address] GLOMERULAR FILTRATION RATE ML/MIN/1.73 SQ M.PREDICTED 91.2 mL/min/1.73m*2 Normal >60.[address] [facility] Comment on above: Result Comment: [facility]???s estimated glomerular filtration rate (eGFR) will no longer include consideration of race in its calculation. The [employer]???s eGFR Task Force developed new recommendations for the estimation of the glomerular filtration rate in the [place] They recommend immediate implementation of the new equation refit without the race variable in all laboratories because the calculation does not include race. In addition to not including race in the calculation and reporting, it included diversity in its development, and has acceptable performance characteristics and potential consequences that do not disproportionately affect any one group of individuals. Performed By: #### L [id number] ####[facility] ([facility])[address] [place] [address] Glucose [Mass/Vol] 105 mg/dL High 70-100 [facility] Comment on above: Performed By: #### L [id number] ####[facility] ([facility])[address] [place] [address] Potassium [Moles/Vol] 3.9 mmol/L Normal 3.5-5.1 [facility] Comment on above: Performed By: #### L [id number] ####[facility] ([facility])[address] [place] [address] Sodium [Moles/Vol] 137 mmol/L Normal 136-145 [facility] Comment on above: Performed By: #### L [id number] ####[facility] ([facility])[address] [place] [address] Urea nitrogen [Mass/Vol] 15 mg/dL Normal 7-25 [facility] Comment on above: Performed By: #### L [id number] ####[facility] ([facility])[address] [place] [address] UREA NITROGEN/CREATININE (MA SS RATIO) IN SER/PLAS 16.5 Normal [facility] Comment on above: Performed By: #### L [id number] ####[facility] ([facility])[address] [place] [address] CBC WITH AUTO DIFFERENTIALon 04-09-2023 Basophils (Bld) [#/Vol] 0.05 10*3/uL Normal 0.00-0.20 [facility] Comment on above: Performed By: #### L [id number] ####[facility] ([facility])[address] [place] [address] Basophils/100 WBC (Bld) 0.8 % Normal 0.0-1.0 [facility] Comment on above: Performed By: #### L [id number] ####[facility] ([facility])[address] [place] [address] Eosinophils (Bld) [#/Vol] 0.09 10*3/uL Normal 0.00-0.5 0 [facility] Comment on above: Performed By: #### L [id number] ####[facility] ([facility])[address] [place] [address] Eosinophils/100 WBC (Bld) 1.4 % Normal 0.0-6.0 [facility] Comment on above: Performed By: #### L [id number] ####[facility] ([facility])[address] [place] [address] Erythrocyte distribution wid th (RBC) [Ratio] 13.1 % Normal 11.5-15.0 [facility] Comment on above: Performed By: #### L [id number] ####[facility] (BEAKER)[address] [place] [address] ERYTHROCYTE MEAN CORPUSCULAR HEMOGLOBIN CONCENTRATION (G/DL) BY AUTOMATED 33.3 g/dL Normal 32.0-35.0 [facility] Comment on above: Performed By: #### L [id number] ####[facility] (BEAKER)[address] [place] [address] Hematocrit (Bld) [Volume fraction] 43.0 % Normal 39.0-55.0 [facility] Comment on above: Performed By: #### L [id number] ####[facility] ([facility] [place] [address] Hemoglobin (Bld) [Mass/Vol] 14.3 g/dL Normal 13.0-17. 0 [facility] Comment on above: Performed By: #### L [id number] ####[facility] (BEAKER)[address] [place] [address] Immature granulocytes (Bld) [#/Vol] 0.03 10*3/uL Normal 0.00-0.20 [facility] Comment on above: Performed By: #### L [id number] ####[facility] (BEAKER)[address] [place] [address] Immature granulocytes/100 WBC (Bld) 0.5 % Normal 0.0-1.0 [facility] Comment on above: Performed By: #### L [id number] ####[facility] (BEAKER)[address] [place] [address] Lymphocytes (Bld) [#/Vol] 2.46 10*3/uL Normal 1.20-4.0 0 [facility] Comment on above: Performed By: #### L [id number] ####[facility] (BEAKER)[address] [place] [address] Lymphocytes/100 WBC (Bld) 38.2 % Normal 20.0-45.0 [facility] Comment on above: Performed By: #### L [id number] ####[facility] (BEAKER)[address] [place] [address] MCH (RBC) [Entitic mass] 30.4 pg Normal 27.0-33.0 [facility] Comment on above: Performed By: #### L [id number] ####[facility] (BEAKER)[address] [place] [address] MCV (RBC) [Entitic vol] 91.3 fL Normal 82.0-98.[address] [facility] Comment on above: Performed By: #### L [id number] ####[facility] [place] [address] Monocytes (Bld) [#/Vol] 0.51 10*3/uL Normal 0.10-1.00 [facility] Comment on above: Performed By: #### L [id number] ####[facility] ([facility])[address] [place] [address] Monocytes/100 WBC (Bld) 7.9 % Normal 5.0-12.[address] [facility] Comment on above: Performed By: #### L [id number] ####[facility] ([facility])[address] [place] [address] Neutrophils (Bld) [#/Vol] 3.30 10*3/uL Normal 1.60-7.6 0 [facility] Comment on above: Performed By: #### L [id number] ####[facility] ([facility])[address] [place] [address] Neutrophils/100 WBC (Bld) 51.2 % Normal 40.0-72.0 [facility] Comment on above: Performed By: #### L [id number] ####[facility] ([facility])[address] [place] [address] NRBC (PER 100 WBCS) BY AUTOM ATED COUNT 0.0 % Normal 0 [facility] Comment on above: Performed By: #### L [id number] ####[facility] ([facility])[address] [place] [address] PLATELETS (10*3/UL) IN BLOOD AUTOMATED COUNT 281 10*3/uL Normal 150-400 [facility] Comment on above: Performed By: #### L [id number] ####[facility] ([facility])[address] [address] RBC (Bld) [#/Vol] 4.71 10*6/uL Normal 4.20-5.70 [facility] Comment on above: Performed By: #### L [id number] ####[facility] ([facility])[address] [address] WBC (Bld) [#/Vol] 6.44 10*3/uL Normal 4.00-10.60 [facility] Comment on above: Performed By: #### L [id number] ####[facility] ([facility])[address] [address] ETHANOLon 04-09-2023 ETHANOL (MG/DL) IN SER/PLAS <10 Normal [facility] Comment on above: Result Comment: No E thanol detected Performed By: #### L [id number] ####[facility] ([facility])[address] [address] ETHANOL CALCULATED (%) Normal [facility] Comment on above: Performed By: #### L [id number] ####[facility] ([facility])[address] [address] Follow-Upon 04-09-2023 Follow-Up Normal [facility] HEMOGLOBIN A1Con 04-09-2023 Glucose [Mass/Vol] 128 mg/dL Normal [facility] Comment on above: Performed By: #### L [id number] ####[facility] ([facility])[address] [address] HbA1c (Bld) [Mass fraction] 6.1 % High 4.0-6.0 [facility] Comment on above: Performed By: #### L [id number] ####[facility] ([facility])[address] [address] HPon 04-09-2023 HP Normal [facility] Labon 04-09-2023 Lab [id number] AngelGui 1955 M Date Provider Department Center 04/09/2023 2245-[facility] OPD LAB RESOURCE [facility]PD [facility] Family History Family history unknown: Yes Normal [facility] MRSA/MSSA DNA NASALon 2022 MRSA DNA Negative Normal Negative [facility] Comment on above: Order Comment: Testi ng methodology is an automated qualitative in vitro diagnostic test for the directdetection and differentiation of Staphylococcus aureus (SA) DNA and methicillin-resistant Staphylococcus aureus (MRSA) DNA from nasal swabs in patients at risk for nasal colonization. The test utilizes real-time polymerase chain reaction (PCR) for the amplification of MRSA/SA DNA and fluorogenic target-specific hybridization probes for the detection of the amplified DNA. A negative result does not preclude nasal colonization. Performed By: #### L [id number] ####[facility] ([facility])[address] [place] [address] MSSA DNA Negative Normal Negative [facility] Comment on above: Order Comment: Testi ng methodology is an automated qualitative in vitro diagnostic test for the directdetection and differentiation of Staphylococcus aureus (SA) DNA and methicillin-resistant Staphylococcus aureus (MRSA) DNA from nasal swabs in patients at risk for nasal colonization. The test utilizes real-time polymerase chain reaction (PCR) for the amplification of MRSA/SA DNA and fluorogenic target-specific hybridization probes for the detection of the amplified DNA. A negative result does not preclude nasal colonization. Performed By: #### L [id number] ####[facility] ([facility])[address] [place] [address] Orders Onlyon 04-09-2023 Orders Only [id number] Gui Ortiz 1955 M Date Provider Department Center 04/09/2023 Tony-ALEJO PAREDES [facility]CVASENDA[facility] [place] [facility] Family History Family history unknown: Yes Normal [facility] PROTIME-INRon 04-09-2023 INR IN PPP BY COAGULATION ASSAY 1.00 Normal 0.90 -1.10 [facility] Comment on above: Result Comment: ACCCP RECOMMENDED INR FO R WARFARIN THERAPY ------CONDITION INRPROPHYLAXIS OF VENOUS THROMBOSIS 2-3(HIGH-RISK SURGERY)TREATMENT OF VENOUS THROMBOSIS 2-3TREATMENT OF PULMONARY EMBOLISM 2-3PREVENTION OF SYSTEMIC EMBOLISM: 2-3 ACUTE MYOCARDIAL INFARCTION TISSUE HEART VALVES VALVULAR HEART DISEASE ATRIAL FIBRILLATION RECURRENT SYSTEMIC EMBOLISMMECHANICAL HEART VALVE 2.5-3.5 FROM: ORAL ANTICOAGULANTS. MECHANISM OF ACTION, CLINICAL EFFECTIVENESS, AND OPTIMAL THERAPEUTIC RANGE. CHEST 1995;108:231S-246S. Performed By: #### L [id number] ####[facility] ([facility])[address] [place] [address] PROTHROMBIN TIME (PT) IN PPP BY COAGULATION ASSAY 13.2 Seconds Normal 12.3-14.8 [facility] Comment on above: Performed By: #### L [id number] ####[facility] (AKER)[address] [place] [address] TOXICOLOGY PANEL URINEon AMPHETAMINE+METHAMPHETAMINE SCREEN (PRESENCE) IN URINE Negative Normal Negative [facility] Comment on above: Performed By: #### L [id number] ####[facility] ([facility])[address] [place] [address] BARBITURATES PRESENCE IN URI NE BY SCREEN METHOD Negative Normal Negative [facility] Comment on above: Performed By: #### L [id number] ####[facility] ([facility])[address] [place] [address] Benzodiazepines Ql (U) Negative Normal Negative [facility] Comment on above: Performed By: #### L [id number] ####[facility] ([facility])[address] [place] [address] CANNABINOID (PRESENCE) IN UR INE BY SCREEN METHOD Negative Normal Negative [facility] Comment on above: Performed By: #### L [id number] ####[facility] ([facility])[address] [place] [address] Cocaine Ql (U) Negative Normal Negative [facility] Comment on above: Performed By: #### L [id number] ####[facility] ([facility])[address] [place] [address] METHADONE (PRESENCE) IN URIN E BY SCREEN METHOD Normal [facility] Comment on above: Result Comment: Meth adone being sent out. Results to follow. Performed By: #### L [id number] ####[facility] ([facility])[address] [place] [address] OPIATES (PRESENCE) IN URINE BY SCREEN METHOD Negative Normal Negative [facility] Comment on above: Performed By: #### L [id number] ####[facility] ([facility])[address] [place] [address] PHENCYCLIDINE PRESENCE IN UR INE BY SCREEN METHOD Negative Normal Negative [facility] Comment on above: Performed By: #### L [id number] ####[facility] ([facility])[address] [place] [address] Propoxyphene Screen Ql (U) Negative Normal Negative [facility] Comment on above: Performed By: #### L [id number] ####[facility] ([facility])[address] [place] [address] TRICYCLIC ANTIDEPRESSANTS (PRESENCE) IN URINE Negative Normal Negative [facility] Comment on above: Performed By: #### L [id number] ####[facility] ([facility])[address] [place] [address] TYPE AND SCREENon 04-09-2023 AB SCREEN Negative Normal [facility] Comment on above: Performed By: #### L [id number] ####[facility] BLOOD BANK, ABO group Nom (Bld) O Normal Unive [facility] Comment on above: Performed By: #### L [id number] ####[facility] BLOOD BANK, RH TYPE IN BLOOD Positive Normal [facility] Comment on above: Performed By: #### L [id number] ####[facility] BLOOD BANK, URINALYSISon 04-09-2023 BILIRUBIN, TOTAL PRESENCE IN URINE Negative Normal Negative [facility] Comment on above: Performed By: #### L [id number] ####[facility] ([facility])[address] [place] [address] Clarity (U) Clear Normal Clear [facility] Comment on above: Performed By: #### L [id number] ####[facility] ([facility])[address] [place] [address] Color (U) Yellow Normal Yellow [facility] Comment on above: Performed By: #### L [id number] ####[facility] ([facility])[address] [place] [address] Glucose (U) [Mass/Vol] Negative Normal [facility] Comment on above: Performed By: #### L [id number] ####[facility] ([facility])[address] [place] [address] HEMOGLOBIN PRESENCE IN URINE Small Abnormal Negativ e [facility] Comment on above: Performed By: #### L [id number] ####[facility] ([facility])[address] [place] [address] Ketones Ql (U) Negative Normal Negative [facility] Comment on above: Performed By: #### L [id number] ####[facility] ([facility])[address] [place] [address] LEUKOCYTE ESTERASE PRESENCE IN URINE BY TEST STRIP Negative Normal Negative [facility] Comment on above: Performed By: #### L [id number] ####[facility] ([facility])[address] [place] [address] NITRITE PRESENCE IN URINE Negative Normal Negative [facility] Comment on above: Performed By: #### L [id number] ####[facility] ([facility])[address] [place] [address] pH (U) 6.0 [pH] Normal 5.0-8.0 [facility] Comment on above: Performed By: #### L [id number] ####[facility] ([facility])[address] [place] [address] Protein (U) [Mass/Vol] Negative Normal [facility] on above: Performed By: #### L [id number] ####[facility] ([facility])[address] [place] [address] Specific gravity (U) [Rel density] 1.012 Low 1.015-1.020 [facility] Comment on above: Performed By: #### L [id number] ####[facility] ([facility])[address] [place] [address] URINALYSIS MICROSCOPICon CASTS IN URINE Normal [facility] Comment on above: Performed By: #### L [id number] ####[facility] ([facility])[address] [place] [address] CRYSTALS IN URINE Normal [facility] Comment on above: Performed By: #### L [id number] ####[facility] ([facility])[address] [place] [address] RBC (#/HPF) IN URINE SEDIMENT 3-5 Abnormal None S een [facility] Comment on above: Performed By: #### L [id number] ####[facility] ([facility])[address] [place] [address] SQUAMOUS EPITHELIAL CELLS (#/HPF) IN URINE SEDIMENT None Seen Normal None Seen, Occasional [facility] Comment on above: Performed By: #### L [id number] ####[facility] ([facility])[address] [place] [address] WBC (LEUKOCYTE) (#/HPF) IN URINE SEDIMENT None Seen Normal None Seen [facility] Comment on above: Performed By: #### L [id number] ####[facility] ([facility])[address] [place] [address] Documentationon 04-01-2023 Documentation Normal [facility] 30on 03-23-2023 30 Normal [facility] 30 Normal [facility] 30 Normal [facility] ANTI-XA (HEPARIN LEVEL)on HEPARIN UNFRACTIONATED (U/ML) IN PPP BY CHROMOGENIC METHOD <0.10 Invalid Interpretation Code 0.3-0.7 [facility] Comment on above: Order Comment: Check anti-Xa level every 6 hours while on heparin infusion, or per protocol. Result Comment: Blanca roxaban and Apixaban will interfere with the anti Xa assay used to monitor UFH and LMWH. Performed By: #### L [id number] ####[facility] ([facility])[address] [place] [address] BASIC METABOLIC PANELon 10 Anion gap [Moles/Vol] 11 mmol/L Normal 7-20 [facility] Comment on above: Performed By: #### L [id number] ####[facility] ([facility])[address] [place] [address] Calcium [Mass/Vol] 9.1 mg/dL Normal 8.6-10.3 [facility] Comment on above: Performed By: #### L [id number] ####[facility] ([facility])[address] [place] [address] Chloride [Moles/Vol] 107 mmol/L Normal 98-107 [facility] Comment on above: Performed By: #### L [id number] ####[facility] ([facility])[address] [place] [address] CO2 [Moles/Vol] 23 mmol/L Normal 21-31 [facility] Comment on above: Performed By: #### L [id number] ####[facility] ([facility])[address] [place] [address] Creatinine [Mass/Vol] 0.85 mg/dL Normal 0.70-1.30 [facility] Comment on above: Performed By: #### L [id number] ####[facility] ([facility])[address] [place] [address] GLOMERULAR FILTRATION RATE ML/MIN/1.73 SQ M.PREDICTED 94.1 mL/min/1.73m*2 Normal >60.[address] [facility] Comment on above: Result Comment: [facility]???s estimated glomerular filtration rate (eGFR) will no longer include consideration of race in its calculation. The National Kidney Foundation???s eGFR Task Force developed new recommendations for the estimation of the glomerular filtration rate in the [place] They recommend immediate implementation of the new equation refit without the race variable in all laboratories because the calculation does not include race. In addition to not including race in the calculation and reporting, it included diversity in its development, and has acceptable performance characteristics and potential consequences that do not disproportionately affect any one group of individuals. Performed By: #### L [id number] ####[facility] ([facility])[address] [place] [address] Glucose [Mass/Vol] 103 mg/dL High 70-100 [facility] Comment on above: Performed By: #### L [id number] ####[facility] ([facility])[address] [place] [address] Potassium [Moles/Vol] 3.8 mmol/L Normal 3.5-5.1 [facility] Comment on above: Performed By: #### L [id number] ####[facility] ([facility])[address] [place] [address] Sodium [Moles/Vol] 137 mmol/L Normal 136-145 [facility] Comment on above: Performed By: #### L [id number] ####[facility] ([facility])[address] [place] [address] Urea nitrogen [Mass/Vol] 12 mg/dL Normal 7-25 [facility] Comment on above: Performed By: #### L [id number] ####[facility] [place] [address] UREA NITROGEN/CREATININE (MA SS RATIO) IN SER/PLAS 14.1 Normal [facility] Comment on above: Performed By: #### L [id number] ####[facility] ([facility])[address] [place] [address] CBCon 03-23-2023 Erythrocyte distribution wid th (RBC) [Ratio] 13.0 % Normal 11.5-15.0 [facility] Comment on above: Performed By: #### L [id number] ####[facility] ([facility])[address] [place] [address] ERYTHROCYTE MEAN CORPUSCULAR HEMOGLOBIN CONCENTRATION (G/DL) BY AUTOMATED 34.5 g/dL Normal 32.0-35.0 [facility] Comment on above: Performed By: #### L [id number] ####[facility] ([facility])[address] [place] [address] Hematocrit (Bld) [Volume fraction] 41.4 % Normal 39.0-55.0 [facility] Comment on above: Performed By: #### L [id number] ####[facility] ([facility])[address] [place] [address] Hemoglobin (Bld) [Mass/Vol] 14.3 g/dL Normal 13.0-17. 0 [facility] Comment on above: Performed By: #### L [id number] ####[facility] ([facility])[address] [place] [address] MCH (RBC) [Entitic mass] 30.4 pg Normal 27.0-33.0 [facility] Comment on above: Performed By: #### L [id number] ####[facility] ([facility])[address] [place] [address] MCV (RBC) [Entitic vol] 87.9 fL Normal 82.0-98.[address] [facility] Comment on above: Performed By: #### L [id number] ####[facility] ([facility])[address] [place] [address] PLATELETS (10*3/UL) IN BLOOD AUTOMATED COUNT 243 10*3/uL Normal 150-400 [facility] Comment on above: Performed By: #### L [id number] ####[facility] ([facility])[address] [place] [address] RBC (Bld) [#/Vol] 4.71 10*6/uL Normal 4.20-5.70 [facility] Comment on above: Performed By: #### L [id number] ####[facility] ([facility])[address] [place] [address] WBC (Bld) [#/Vol] 6.84 10*3/uL Normal 4.00-10.60 [facility] Comment on above: Performed By: #### L [id number] ####[facility])[address] [place] [address] CT HEAD WO IV CONTRASTon CT HEAD WO IV CONTRAST [facility] CHEST W AND/OR WO IV CON TRASTon 03-23-2023 CTA CHEST W AND/OR WO IV CONTRAST Normal [facility] DSon 03-23-2023 DS Normal [facility] 30on 03-22-2023 30 Normal [facility] 30 Normal [facility] ANESon 03-22-2023 ANES Normal [facility] APTTon 03-22-2023 ACTIVATED PARTIAL THROMBOPLASTIN TIME IN PPP BY COAGULATION ASSAY 36.2 Seconds High 25.0-35.0 [facility] Comment on above: Order Comment: Basel ine aPTT before initiating heparin infusion. Result Comment: Clin ical significance of the APTT is questionable in the presence of heparin. Performed By: #### L [id number] ####[facility] ([facility])[address] [place] [address] BASIC METABOLIC PANELon Anion gap [Moles/Vol] 9 mmol/L Normal 7-20 [facility] Comment on above: Performed By: #### L [id number] ####[facility] ([facility])[address] [place] [address] Calcium [Mass/Vol] 8.9 mg/dL Normal 8.6-10.3 [facility] Comment on above: Performed By: #### L [id number] ####[facility] ([facility])[address] [place] [address] Chloride [Moles/Vol] 111 mmol/L High 98-107 [facility] Comment on above: Performed By: #### L [id number] ####[facility] ([facility])[address] [place] [address] CO2 [Moles/Vol] 22 mmol/L Normal 21-31 [facility] Comment on above: Performed By: #### L [id number] ####[facility] ([facility])[address] [place] [address] Creatinine [Mass/Vol] 0.79 mg/dL Normal 0.70-1.30 [facility] Comment on above: Performed By: #### L [id number] ####[facility] ([facility])[address] [place] [address] GLOMERULAR FILTRATION RATE ML/MIN/1.73 SQ M.PREDICTED 96.2 mL/min/1.73m*2 Normal >60.[address] [facility] Comment on above: Result Comment: [facility]???s estimated glomerular filtration rate (eGFR) will no longer include consideration of race in its calculation. The National Kidney Foundation???s eGFR Task Force developed new recommendations for the estimation of the glomerular filtration rate in the [place] They recommend immediate implementation of the new equation refit without the race variable in all laboratories because the calculation does not include race. In addition to not including race in the calculation and reporting, it included diversity in its development, and has acceptable performance characteristics and potential consequences that do not disproportionately affect any one group of individuals. Performed By: #### L [id number] ####[facility] ([facility])[address] [place] [address] Glucose [Mass/Vol] 112 mg/dL High 70-100 [facility] Comment on above: Performed By: #### L [id number] ####[facility] (BEAKER)[address] [place] [address] Potassium [Moles/Vol] 3.9 mmol/L Normal 3.5-5.1 [facility] Comment on above: Performed By: #### L [id number] ####[facility] ([facility])[address] [place] [address] Sodium [Moles/Vol] 138 mmol/L Normal 136-145 [facility] Comment on above: Performed By: #### L [id number] ####[facility] ([facility])[address] [place] [address] Urea nitrogen [Mass/Vol] 12 mg/dL Normal 7-25 [facility] Comment on above: Performed By: #### L [id number] ####[facility] ([facility])[address] [place] [address] UREA NITROGEN/CREATININE (MA SS RATIO) IN SER/PLAS 15.2 Normal [facility] Comment on above: Performed By: #### L [id number] ####[facility] ([facility])[address] [place] [address] CBCon 03-22-2023 Erythrocyte distribution wid th (RBC) [Ratio] 13.2 % Normal 11.5-15.0 [facility] Comment on above: Performed By: #### L [id number] ####[facility] ([facility])[address] [place] [address] ERYTHROCYTE MEAN CORPUSCULAR HEMOGLOBIN CONCENTRATION (G/DL) BY AUTOMATED 33.7 g/dL Normal 32.0-35.0 [facility] Comment on above: Performed By: #### L [id number] ####[facility] ([facility])[address] [place] [address] Hematocrit (Bld) [Volume fraction] 40.3 % Normal 39.0-55.0 [facility] Comment on above: Performed By: #### L [id number] ####[facility] ([facility])[address] [place] [address] Hemoglobin (Bld) [Mass/Vol] 13.6 g/dL Normal 13.0-17. 0 [facility] Comment on above: Performed By: #### L [id number] ####[facility])[address] [place] [address] MCH (RBC) [Entitic mass] 30.5 pg Normal 27.0-33.0 [facility] Comment on above: Performed By: #### L [id number] ####[facility] ([facility])[address] [place] [address] MCV (RBC) [Entitic vol] 90.4 fL Normal 82.0-98.[address] [facility] Comment on above: Performed By: #### L [id number] ####[facility] ([facility])[address] [place] [address] PLATELETS (10*3/UL) IN BLOOD AUTOMATED COUNT 241 10*3/uL Normal 150-400 [facility] Comment on above: Performed By: #### L [id number] ####[facility] ([facility])[address] [place] [address] RBC (Bld) [#/Vol] 4.46 10*6/uL Normal 4.20-5.70 [facility] Comment on above: Performed By: #### L [id number] ####[facility])[address] [place] [address] WBC (Bld) [#/Vol] 6.03 10*3/uL Normal 4.00-10.60 [facility] Comment on above: Performed By: #### L [id number] ####[facility])[address] [place] [address] CONSULTon 03-22-2023 CONSULT Normal [facility] CONSULT Normal [facility] CT CHEST WO IV CONTRASTon CT CHEST WO IV CONTRAST Normal [facility] HEMOGLOBIN A1Con 03-22-2023 Glucose [Mass/Vol] 126 mg/dL Normal [facility] Comment on above: Performed By: #### L [id number] ####[facility] ([facility] [place] [address] HbA1c (Bld) [Mass fraction] 6.0 % Normal 4.0-6.0 [facility] Comment on above: Performed By: #### L [id number] ####[facility] ([facility])[address] [place] [address] HPon 03-22-2023 HP H&P reviewed. The laurie putnam was examined and there are no changes to the H&P. Will proceed with coronary angiogram for chest pain and elevated high sensitivity troponin. Normal [facility] LIPID PANELon 03-22-2023 CHOL/HDL 4.9 mg/dL Normal [facility] Comment on above: Performed By: #### L [id number] ####[facility] ([facility])[address] [facility] [place] [address] Cholesterol [Mass/Vol] 138 mg/dL Normal 120-200 [facility] Comment on above: Performed By: #### L [id number] ####[facility] ([facility])[address] [facility] [place] [address] Magnesium [Mass/Vol] 107 mg/dL Normal 40-149 [facility] Comment on above: Result Comment: TRIG LYCERIDE REFERENCE RANGE:20 YEARS AND OLDER CARDIOVASCULAR RISKLESS THAN 150 mg/dL LOW [id number] TO 199 mg/dL BORDERLINE [id number] mg/dL AND GREATER HIGH RISK Performed By: #### L [id number] ####[facility])[address] [place] [address] Magnesium [Mass/Vol] 89 mg/dL Normal 0-160 [facility] Comment on above: Performed By: #### L [id number] ####[facility] ([facility])[address] [place] [address] Magnesium [Mass/Vol] 28 mg/dL Normal 23-92 [facility] Comment on above: Performed By: #### L [id number] ####[facility] ([facility])[address] [place] [address] NON HDL CHOL. (LDL+VLDL) 110 Normal [facility] Comment on above: Performed By: #### L [id number] ####[facility] ([facility])[address] [place] [address] TOTAL VLDL-C 21 mg/dL Normal 0-40 [facility] Comment on above: Performed By: #### L [id number] ####[facility] ([facility])[address] [place] [address] MRSA/MSSA DNA NASALon 2022 MRSA DNA Negative Normal Negative [facility] Comment on above: Order Comment: Testi ng methodology is an automated qualitative in vitro diagnostic test for the directdetection and differentiation of Staphylococcus aureus (SA) DNA and methicillin-resistant Staphylococcus aureus (MRSA) DNA from nasal swabs in patients at risk for nasal colonization. The test utilizes real-time polymerase chain reaction (PCR) for the amplification of MRSA/SA DNA and fluorogenic target-specific hybridization probes for the detection of the amplified DNA. A negative result does not preclude nasal colonization. Performed By: #### L [id number] ####[facility] ([facility])[address] [place] [address] MSSA DNA Negative Normal Negative [facility] Comment on above: Order Comment: Testi ng methodology is an automated qualitative in vitro diagnostic test for the directdetection and differentiation of Staphylococcus aureus (SA) DNA and methicillin-resistant Staphylococcus aureus (MRSA) DNA from nasal swabs in patients at risk for nasal colonization. The test utilizes real-time polymerase chain reaction (PCR) for the amplification of MRSA/SA DNA and fluorogenic target-specific hybridization probes for the detection of the amplified DNA. A negative result does not preclude nasal colonization. Performed By: #### L [id number] ####[facility] ([facility])[address] [place] [address] TROPONIN Ion 03-22-2023 Troponin I.cardiac [Mass/Vol] 0.03 ng/mL Normal 0.00-0 .04 [facility] Comment on above: Performed By: #### L [id number] ####[facility] ([facility])[address] [place] [address] Troponin I.cardiac [Mass/Vol] 0.04 ng/mL Normal 0.00-0 .04 [facility] Comment on above: Performed By: #### L [id number] ####[facility] ([facility])[address] [place] [address] TSH3 REFLEX TO FT4on 023 THYROTROPIN (MIU/L) IN SER/PLAS BY DETECTION LIMIT <= 0.05 MIU/L 2.07 mIU/L Normal 0.34-5.60 [facility] Comment on above: Performed By: #### L [id number] ####[facility] ([facility])[address] [place] [address] URINALYSISon 03-22-2023 BILIRUBIN, TOTAL PRESENCE IN URINE Negative Normal Negative [facility] Comment on above: Performed By: #### L [id number] ####[facility] ([facility])[address] [place] [address] Clarity (U) Clear Normal Clear [facility] Comment on above: Performed By: #### L [id number] ####[facility] ([facility])[address] [place] [address] Color (U) Yellow Normal Yellow [facility] Comment on above: Performed By: #### L [id number] ####[facility] ([facility])[address] [place] [address] Glucose (U) [Mass/Vol] Negative Normal [facility]: Performed By: #### L [id number] ####[facility] ([facility])[address] [place] [address] HEMOGLOBIN PRESENCE IN URINE Small Abnormal Negativ e [facility] Comment on above: Performed By: #### L [id number] ####[facility] ([facility])[address] [place] [address] Ketones Ql (U) Negative Normal Negative [facility] Comment on above: Performed By: #### L [id number] ####[facility] [place] [address] LEUKOCYTE ESTERASE PRESENCE IN URINE BY TEST STRIP Negative Normal Negative [facility] Comment on above: Performed By: #### L [id number] ####[facility] ([facility])[address] [place] [address] NITRITE PRESENCE IN URINE Negative Normal Negative [facility] Comment on above: Performed By: #### L [id number] ####[facility] ([facility])[address] [place] [address] pH (U) 6.0 [pH] Normal 5.0-8.0 [facility] Comment on above: Performed By: #### L [id number] ####[facility] ([facility])[address] [place] [address] Protein (U) [Mass/Vol] Negative Normal Negative [facility] Comment on above: Performed By: #### L [id number] ####[facility] ([facility])[address] [place] [address] Specific gravity (U) [Rel density] 1.049 High 1.015-1.020 [facility] Comment on above: Performed By: #### L [id number] ####[facility] ([facility])[address] [place] [address] URINALYSIS MICROSCOPICon CASTS IN URINE Normal [facility] Comment on above: Performed By: #### L [id number] ####[facility] ([facility])[address] [place] [address] CRYSTALS IN URINE Normal [facility] Comment on above: Performed By: #### L [id number] ####[facility] ([facility])[address] [place] [address] RBC (#/HPF) IN URINE SEDIMENT 6-10 Abnormal None S een [facility] Comment on above: Performed By: #### L [id number] ####[facility] ([facility])[address] [place] [address] SQUAMOUS EPITHELIAL CELLS (#/HPF) IN URINE SEDIMENT Few Abnormal None Seen, Occasional [facility] Comment on above: Performed By: #### L [id number] ####[facility] ([facility])[address] [place] [address] WBC (LEUKOCYTE) (#/HPF) IN URINE SEDIMENT None Seen Normal None Seen [facility] Comment on above: Performed By: #### L [id number] ####[facility] ([facility])[address] [place] [address] 30on 03-21-2023 30 Normal [facility] D-DIMER, QUANTITATIVEon FIBRIN D-DIMER (UG/L FEU) IN PLATELET POOR PLASMA 0.36 mcg/mL FEU Normal 0.27-0.49 [facility] Comment on above: Order Comment: D-Dim er values of less than 0.50 ug/ml (FEU) are considered to be a negative predictor of thrombosis. However, the D-Dimer result should be used in conjunction with pretest probability and should not be used alone to diagnose a thrombotic event. 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 Last seen in our office 03/27/22 by RWR due to Elevated PSA, BPH & Microscopic Hematuria. Pt is here today for 6m PSA F/T (office has RS'd x2) *Tamsulosin 0.4mg qd therapy. NEG FISH/Cytology 03/21/22 PSA 07/25/22- 2.46 Dysuria: no Incomplete bladder emptying: no Hematuria: no Frequency: Pt. stats can go longer then 3 hours Urgency: no Nocturia: 1x Stream: good stream Post void dripping: no Wearing pads/ Depends: no Urge incontinence: no Stress incontinence: no Incontinence without Sensory Awareness: no Abdominal pain: no Flank pain: no History of Present Illness staff HPI reviewed and agree. Review of Systems PHQ Score Initial Depression Screen Score: 0 no fever, chills, malaise, myalgia. no rash/lesions. no chest pain, palpitations, or SOB. no abdominal pain, nausea, vomiting. no unilateral calf swelling, redness, pain Physical Exam Vitals & Measurements HT: 64 in HT: 162 cm WT: 67.2 kg WT: 147.84 lb BMI: 25.61 General: nontoxic, NAD Mouth: moist mucosa Lungs: normal respiratory effort Cardio: regular rate, good distal perfusion Abdomen: nondistended, no suprapubic distention or tenderness, no CVA tenderness Neurologic: Grossly normal Skin: No rashes or suspicious lesions Assessment/Plan 1. Elevated PSA (R97.20: Elevated prostate specific antigen [PSA]) Hx of fluctuating PSA. PSA 05/26/21 - 5.48 12/14/21 - 6.02 02/20/22 - 4.90 & 15.5% 07/25/22 - 2.46 Discussed PSA levels w/pt, lowest it's been. Will repeat PSA in 1 yr. 2. BPH with obstruction/lower urinary tract symptoms (N40.1: Benign prostatic hyperplasia with lower urinary tract symptoms) Patient continues Tamsulosin 0.4mg QD, pt states that sometimes he does not take it, and does not tell a difference when he doesn't. Cysto shows normal prostate, moderately obstructing with a slight elevated middle lobe as well as 3.5 cm prostate fossa. There is no indication for outlet procedures at this time. IPSS 9, QoL 1 Advised pt that if the Flomax is not helping his urinary sxs significantly, he can d/c. Pt states he drinks coffee mostly. Pt states he has rare post void dribbling. Pt is to d/c taking Tamsulosin. 3. Benign essential microscopic hematuria (R31.1: Benign essential microscopic hematuria) S/p Cysto 01/2018 & 03/21/[address] AP w con 12/14/21 - neg. for bladder tumors or lesions. SMALL blood per today's UA. Denies gross hematuria. He is aware to call if he would witness blood in urine. Follow up in 1 yr w/PSA. All questions/concerns were discussed. Pt to call the office if he encounters any issues prior. Pt acknowledges understanding. Follow-up With When Contact Information ELIZABETH LINDSAY PA-C, URL In 1 year [address] [place] [address] Additional Instructions: w/PSA Patient Education Documentation recorded by the scribned Rojas accurately reflects the services(s) I performed and decisions made by me. Authenticated by Elizabeth Lindsay PA-C on 01/29/2023 16:19:01. Nani Fox, personally scribed for Elizabeth Lindsay PA-C on 01/29/2023 14:52:41. . 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 Medications Keflex 500 mg Cap, 500 mg= 1 cap(s), Oral, Daily, Not taking pantoprazole, 40 mg, Oral, Daily tamsulosin 0.4 mg Cap, 0.4 mg= 1 cap(s), Oral, Daily, 3 refills Allergies No Known Medication Allergies Social History Alcohol - Denies Alcohol Use, 04/07/2019 Tobacco 10 or more cigarettes (1/2 pack or more)/day in last 30 days Tobacco Use:. Cigarettes, 12/05/2021 Family History Primary malignant neoplasm of prostate: Father. Immunizations Vaccine Date Status Comments influenza virus vaccine, inactivated - Not Given Postpone due to refusal SARS-CoV-2 (COVID-19) mRNA BNT-162b2 vax 06/20/2021 Recorded SARS-CoV-2 (COVID-19) Ad26 vaccine 09/13/2020 Recorded SARS-CoV-2 (COVID-19) Ad26 vaccine 08/22/2020 Recorded Lab Results Ambulatory Point of Care Results Bilirubin Urine Dipstick: Negative (01/29/23 14:37:00) Blood Urine Dipstick: 1+ Small (01/29/23 14:37:00) Glucose Urine Dipstick: Negative (01/29/23 14:37:00) Ketones Urine Dipstick: Negative (01/29/23 14:37:00) Leukocytes Urine Dipstick: Negative (01/29/23 14:37:00) Nitrite Urine Dipstick: Negative (01/29/23 14:37:00) Protein Urine Dipstick: Negative (01/29/23 14:37:00) Specific [place] Urine Dipstick: 1.025 (01/29/23 14:37:00) Urine Appearance Urine Dipstick: Clear (01/29/23 14:37:00) Urine Color Urine Dipstick: Yellow (01/29/23 14:37:00) pH Urine Dips (more content not included)... Normal [facility] Comment on above: Result Comment: Elec tronically Signed By: ELIZABETH LINDSAY PA-C\.br\Date and Time Signed: 01/29/23 16:19 EDT\.br\Electronically Co-Signed By: Nani Rojas\.br\Date and Time Co-Signed: 01/29/23 14:[address] SKULL BASE MID THIGHo n 08-04-[address] SKULL BASE MID THIGH NUCLEAR MEDICINE PET/CT HISTORY: Solitary pulmonary nodule. COMPARISON: CT chest 07/25/2022. METHOD: 12.67 mCi of F-18 FDG was administered intravenously. PET images were obtained from the skull base through the midthigh levels in the axial plane. Reformatted images were performed in the sagittal and coronal planes. A low-dose, noncontrast CT scan was performed for attenuation correction and anatomical localization. A low dose, noncontrast and nondiagnostic CT scan was performed for attenuation correction and anatomic localization. Mediastinal blood pool SUV max 1.7 using the patient's body weight as the normalization method. FINDINGS: HEAD AND NECK: There are no metabolically active lymph nodes in the neck. There is a left maxillary sinus mucus retention cyst versus polyp. CHEST: There are minimally metabolically active nonenlarged hilar mediastinal lymph nodes. The major airways are patent. There is no pericardial effusion. There is no evidence of abnormal metabolic uptake in the esophagus. There are coronary artery calcifications. There are emphysematous changes. There is biapical pleural-parenchymal scarring. The right apical nodular density described on CT is not metabolically active. There is no evidence of abnormal metabolic uptake in the lung parenchyma. There are no pleural effusions. There is no pneumothorax. ABDOMEN AND PELVIS: There is no evidence of abnormal metabolic activity in the liver or adrenal glands. There is no evidence of abnormal metabolic active lymph nodes in the abdomen or pelvis. There is no free fluid. There is physiologic uptake in the urinary system and bowel. There are scattered diverticuli. There are vascular calcifications. The prostate is enlarged. MUSCULOSKELETAL: There is no evidence of abnormal metabolically active bony lesions. IMPRESSION: No evidence of metabolically active tumor. Right apical nodular density is not metabolically active and consistent with pleural-parenchymal scarring. Emphysema. Minimally metabolically active subcentimeter hilar and mediastinal lymph nodes, reactive lymph nodes versus granulomatous disease. Diverticulosis. Prostamegaly. Coronary artery calcifications. Electronically authenticated by: GARCIA GALLEGOS Date: 2022-08-04 17:[address] [facility] l CT LUNG CANCER SCREENINGon 0 07-26-2022 CT LUNG CANCER SCREENING EXAMINATION: CT LUNG CANCER SCREENING HISTORY: Tobacco dependence caused by cigarettes COMPARISON: No relevant comparison available. TECHNIQUE: Axial, Coronal, and Sagittal images were created without the administration of IV contrast material. Dose reduction techniques were achieved by using automated exposure control and/or adjustment of mA and/or kV according to patient size and/or use of iterative reconstruction technique. FINDINGS: LUNGS: Within right lung apex is a 3.6 x 1.2 x 1.6 cm spiculated mass containing several calcifications, and extending to the posterior apical pleural where there is marked thickening. PLEURA: No mass, effusion, or pneumothorax. VASCULATURE: No abnormality. MARK: No mass or pathologic adenopathy. MEDIASTINUM: No mass or pathologic adenopathy. CARDIAC: Marked atherosclerotic coronary artery disease. No pericardial effusion. AORTA: No aneurysm or dissection. CHEST WALL: No mass or axillary adenopathy BONES: No bone lesion or fracture. LIMITED ABDOMEN: No suspicious findings. Limited images of the upper abdomen. OTHER: Negative. IMPRESSION: 1. Lung-RADS Category 4B- Suspicious. Findings for which additional diagnostic testing and/ or tissue sampling is recommended. Chest CT with or without contrast, PET/CT and/ or tissue sampling depending on the * probability of malignancy and comorbidities. PET/CT may be used when there is a >= 8 mm solid component. 2. Large right apical spiculated mass with extension to posterior pleura; malignancy versus scarring. PET/CT is recommended for further evaluation. Electronically authenticated by: DAVID EL Date: 2022-07-26 07:[address] [facility] l INSULINon 07-26-2022 Insulin 4.0 uIU/mL Normal 2.6-24.9 [facility] Comment on above: Performed By: #### I NSULIN #### [facility] [address] [place] [id number] Rehana Martinez CBC AUTO DIFFon 07-25-2022 BASO # 0.0 103/ul Normal 0.0-0.1 [facility] Comment on above: Performed By: #### C BC #### [facility] [address] [place] [address] Dr. Rehana Martinez Basophils/100 WBC (Bld) 0.2 % Normal 0.2-2.0 [facility] Comment on above: Performed By: #### C BC #### [facility] [address] [place] [address] Dr. Rehana Martinez EO # 0.1 103/ul Normal 0.0-0.7 [facility] Comment on above: Performed By: #### C BC #### [facility] [address] [place] [address] Dr. Rehana Martinez Eosinophils/100 WBC (Bld) 0.5 % Critically low 0.9-7. 0 [facility] Comment on above: Performed By: #### C BC #### [facility] [address] [place] [address] Dr. Rehana Martinez Erythrocyte distribution wid th (RBC) [Ratio] 13.6 % Normal 11.0-15.0 [facility] Comment on above: Performed By: #### C BC #### [facility] [address] [place] [address] Dr. Rehana Martinez Hematocrit (Bld) [Volume fraction] 45.6 % Normal 4 2.0-54.0 [facility] Comment on above: Performed By: #### C BC #### [facility] [address] [place] [address] Dr. Rehana Martinez Hemoglobin (Bld) [Mass/Vol] 15.1 g/dL Normal 14.0-18. 0 [facility] Comment on above: Performed By: #### C BC #### [facility] [address] [place] [address] Dr. Rehana Martinez IG # 0.04 10e3/ul Critically high 0.00-0.03 [facility] Comment on above: Performed By: #### C BC #### [facility] [address] [place] [address] Dr. Rehaan Martinez IG % 0.4 % Normal 0.0-0.5 [facility] Comment on above: Performed By: #### C BC #### [facility] [address] [place] [address] [address] Rehana Martinez LYMPH # 1.7 103/ul Normal 1.2-3.8 [facility] Comment on above: Performed By: #### C BC #### [facility] [address] [address] [address] Rehana Martinez Lymphocytes/100 WBC (Bld) 17.9 % Critically low 20.5-6 0.0 [facility] Comment on above: Performed By: #### C BC #### [facility] [address] [place] [address] Dr. Rehana Martinez MANUAL DIFF REQ NO Normal [facility] Comment on above: Performed By: #### C BC #### [facility] [address] [place] [address] Dr. Rehana Martinez MCH (RBC) [Entitic mass] 30.8 pg Normal 25.9-34.0 [facility] Comment on above: Performed By: #### C BC #### [facility] [address] [place] [address] Dr. Rehana Martinez MCHC (RBC) [Mass/Vol] 33.1 g/dL Normal 29.9-35.2 [facility] Comment on above: Performed By: #### C BC #### [facility] [address] [place] [address] Dr. Rehana Martinez MCV (RBC) [Entitic vol] 92.9 fL Normal 80.0-94.0 [facility] Comment on above: Performed By: #### C BC #### [facility] [address] [place] [address] Dr. Rehana Martinez MONO # 1.1 103/ul Critically high 0.3-0.8 [facility] Comment on above: Performed By: #### C BC #### [facility] [address] [place] [address] Dr. Rehana Martinez Monocytes/100 WBC (Bld) 11.2 % Normal 1.7-12.0 [facility] Comment on above: Performed By: #### C BC #### [facility] [address] [place], [place] [address] Dr. Rehana Martinez NEUT # 6.7 103/ul Critically high 1.4-6.5 [facility] Comment on above: Performed By: #### C BC #### [facility] [id number] Rehana Martinez Neutrophils/100 WBC (Bld) 69.8 % Normal 43.0-75.[address] [facility] Comment on above: Performed By: #### C BC #### [facility] [address] [address] [address] Rehana Martinez Platelet mean volume (Bld) [Entitic vol] 8.7 fL Critically low 9.5-13.5 [facility] p[facility] Comment on above: Performed By: #### C BC #### [facility] [address] [place] [address] Dr. Rehana Martinez PLT 226 103/ul Normal 150-450 [facility] Comment on above: Performed By: #### C BC #### [facility] [id number] Rehana Martinez RBC 4.91 106/ul Normal 4.70-6.[address] [facility] Comment on above: Performed By: #### C BC #### [facility] [id number] Rehana Martinez WBC 9.6 103/ul Normal 4.0-11.0 [facility] [facility] Comment on above: Performed By: #### C BC #### [facility] [id number] Rehana Martinez FREE THYROXINE INDEX T7on FTI 3.37 Normal 1.30-4.50 [facility] Comment on above: Performed By: #### L IPID, CMP, TSH, URIC, T7 ####[facility] [address] [place], [place] [address]XeDr. Rehana Martinez T3U 37.0 % Normal 33.0-40.0 [facility] Comment on above: Performed By: #### L IPID, CMP, TSH, URIC, T7 ####[facility] [address] [place] [address] [id number]. Rehana Martinez T4 [Mass/Vol] 9.10 ug/dL Normal 4.50-12.10 [facility] Comment on above: Performed By: #### L IPID, CMP, TSH, URIC, T7 ####[facility] [address] [place] [id number] Martinez GLYCOHEMOGLOBIN A1Con 2022 ADA RECOMMENDATION SEE BELOW Normal [facility] Comment on above: Result Comment: ADA RECOMMENDED LIMIT 4.0 - 6.0 ADA THERAPEUTIC TARGET < 7.0 ACTION SUGGESTED > 7.0 Performed By: #### A 1C #### [facility] [address] [address] [address] Rehana Martinez Glucose [Mass/Vol] 128 mg/dL Normal [facility] Comment on above: Performed By: #### A 1C #### [facility] [address] [address] [address] Rehana Martinez HbA1c (Bld) [Mass fraction] 6.1 % Normal 4.5-6.2 [facility] Comment on above: Performed By: #### A 1C #### [facility] [address] [address] [address] Rehana Martinez LIPID PROFILEon 07-25-2022 CHOL-HDL RATIO NORM SEE BELOW Normal [facility] Comment on above: Result Comment: 3.3 - 4.4 LOW RISK 4.4 - 7.1 AVERAGE RISK 7.1 - 11.0 MODERATE RISK >11.0 HIGH RISK Performed By: #### L IPID, CMP, TSH, URIC, T7 ####[facility] [address] [place] [id number]. Rehana Martinez Cholesterol [Mass/Vol] 137 mg/dL Normal <=200 [facility] Comment on above: Performed By: #### L IPID, CMP, TSH, URIC, T7 ####[facility] [address] [place] [id number]. Rehana Martinez Cholesterol in HDL [Mass/Vol] 44 mg/dL Normal 40-[address] [facility] Comment on above: Performed By: #### L IPID, CMP, TSH, URIC, T7 ####[facility] [address] [place] [id number]. Rehana Martinez Cholesterol in LDL [Mass/Vol] 75.6 mg/dL Normal [facility] Comment on above: Performed By: #### L IPID, CMP, TSH, URIC, T7 ####[facility] [address] [place] [id number]. Rehana Martinez Cholesterol.total/Cholestero l in HDL [Mass ratio] 3.1 {ratio} Normal [facility] Comment on above: Performed By: #### L IPID, CMP, TSH, URIC, T7 ####[facility] [address] [place] [id number]. Rehana Martinez HDL NORMAL > or = 60 mg/dl - LO W CARDIOVASCULAR RISK <40 mg/dl - HIGH CARDIOVASCULAR RISK Normal [facility] Comment on above: Performed By: #### L IPID, CMP, TSH, URIC, T7 ####[facility] [address] [place] [id number]. Floriirene Martinez LDL CALC NORMAL SEE BELOW Normal [facility] Comment on above: Result Comment: <100 mg/dl OPTIMAL 100 - 129 mg/dl NEAR OR ABOVE OPTIMAL 130 - 159 mg/dl BORDERLINE HIGH 160 - 189 mg/dl HIGH >190 mg/dl VERY HIGH Performed By: #### L IPID, CMP, TSH, URIC, T7 ####[facility] [address] [place] [id number]. Floriirene Martinez Triglyceride [Mass/Vol] 87 mg/dL Normal <=150 T [facility] Comment on above: Performed By: #### L IPID, CMP, TSH, URIC, T7 ####[facility] [address] [place] [id number]. Floriirene Martinez VLDL CALC 17.4 mg/dL Normal [facility] Comment on above: Performed By: #### L IPID, CMP, TSH, URIC, T7 ####[facility] [address] [address]Dr. Rehana Martinez PROF 14(COMP METB)on 023 Albumin [Mass/Vol] 3.3 g/dL Critically low 3.4-5.0 [facility] Comment on above: Performed By: #### L IPID, CMP, TSH, URIC, T7 ####[facility] [address] [place] [address]Dr. Rehana Martinez Albumin/Globulin [Mass ratio] 0.9 {ratio} Normal [facility] Comment on above: Performed By: #### L IPID, CMP, TSH, URIC, T7 ####[facility] [address] [place] [address]Dr. Rehana Martinez ALP [Catalytic activity/Vol] 105 U/L Normal 46-116 [facility] Comment on above: Performed By: #### L IPID, CMP, TSH, URIC, T7 ####[facility] [address] [place], [place] [address]Dr. Rehana Martinez ALT [Catalytic activity/Vol] 16 U/L Normal 16-63 [facility] Comment on above: Performed By: #### L IPID, CMP, TSH, URIC, T7 ####[facility] [address] [place], [place] [address]Dr. Rehana Martinez Anion gap [Moles/Vol] 11.8 mmol/L Normal [facility] Comment on above: Performed By: #### L IPID, CMP, TSH, URIC, T7 ####[facility] [address] [place], [place] [address]Dr. Rehana Martinez AST [Catalytic activity/Vol] 16 U/L Normal 15-37 [facility] Comment on above: Performed By: #### L IPID, CMP, TSH, URIC, T7 ####[facility] [address] [place], [place] [address]Dr. Rehana Martinez Bilirubin [Mass/Vol] 0.6 mg/dL Normal 0.2-1.0 [facility] Comment on above: Performed By: #### L IPID, CMP, TSH, URIC, T7 ####[facility] [address] [place] [id number]. Rehana Martinez Calcium [Mass/Vol] 9.1 mg/dL Normal 8.5-10.[address] [facility] Comment on above: Performed By: #### L IPID, CMP, TSH, URIC, T7 ####[facility] [address] [place] [address]Dr. Rehana Martinez Chloride [Moles/Vol] 103 mmol/L Normal 98-[address] [facility] Comment on above: Performed By: #### L IPID, CMP, TSH, URIC, T7 ####[facility] [address] [place] [address]Dr. Rehana Martinez CO2 [Moles/Vol] 26.0 mmol/L Normal 21.0-32.0 [facility] Comment on above: Performed By: #### L IPID, CMP, TSH, URIC, T7 ####[facility] [address] [place] [address]Dr. Rehana Martinez Creatinine [Mass/Vol] 0.94 mg/dL Normal 0.70-1.30 [facility] Comment on above: Performed By: #### L IPID, CMP, TSH, URIC, T7 ####[facility] [address] [place], [place] [address]Dr. Rehana Martinez EGFR-AF AUSTRIAN >60 Normal >=60 [facility] Comment on above: Performed By: #### L IPID, CMP, TSH, URIC, T7 ####[facility] [address] [place] [address]Dr. Rehana Martinez EGFR-NON AF AUSTRIAN >60 Normal >=60 [facility] Comment on above: Performed By: #### L IPID, CMP, TSH, URIC, T7 ####[facility] [address] [place], [place] [address]Dr. Rehana Martinez Globulin (S) [Mass/Vol] 3.8 g/dL Normal T [facility] Comment on above: Performed By: #### L IPID, CMP, TSH, URIC, T7 ####[facility] [address] [place], [place] [address]Dr. Rehana Martinez Glucose [Mass/Vol] 109 mg/dL Critically high 74-106 T [facility] Comment on above: Performed By: #### L IPID, CMP, TSH, URIC, T7 ####[facility] [address] [place] [address]Dr. Rehana Martinez Potassium [Moles/Vol] 3.8 mmol/L Normal 3.5-5.[address] [facility] Comment on above: Performed By: #### L IPID, CMP, TSH, URIC, T7 ####[facility] [address] [place] [address]Dr. Rehana Martinez Protein [Mass/Vol] 7.1 g/dL Normal 6.4-8.2 [facility] Comment on above: Performed By: #### L IPID, CMP, TSH, URIC, T7 ####[facility] [address] [address]Dr. Rehana Martinez Sodium [Moles/Vol] 137 mmol/L Normal 136-145 [facility] Comment on above: Performed By: #### L IPID, CMP, TSH, URIC, T7 ####[facility] [address] [place] [address]Dr. Rehana Martinez Urea nitrogen [Mass/Vol] 17.0 mg/dL Normal 7.0-18.[address] [facility] Comment on above: Performed By: #### L IPID, CMP, TSH, URIC, T7 ####[facility] [address] [place] [address]Dr. Rehana Martinez Urea nitrogen/Creatinine [Mass ratio] 18.1 mg/mg Normal [facility] Comment on above: Performed By: #### L IPID, CMP, TSH, URIC, T7 ####[facility] [address] [place] [address]Dr. Rehana Martinez TSHon 07-25-2022 TSH 1.619 uIU/mL Normal 0.358-3.740 [facility] Comment on above: Performed By: #### L IPID, CMP, TSH, URIC, T7 ####[facility] [address] [place], [place] [address]Dr. Rehana Martinez URIC ACID SERUMon 07-25-2022 Urate [Mass/Vol] 5.7 mg/dL Normal 3.5-7.2 [facility] Comment on above: Performed By: #### L IPID, CMP, TSH, URIC, T7 #### [facility] [address] [place], [place] [address] Dr. Rehana Martinez [facility] Fish and Urine Cyt o ([facility])on 04-06-2022 UVFISH & UC Diagnosis Info Invalid Interpretation Code [facility] Comment on above: Result Comment: A:Ur ine,Urine:Voided Diagnosis Summary - Diagnosis Summary - The [facility] FISH study detected normal copy numbers for chromosomes 3, 7, 17, and 9p21. 115 cells were analyzed in this evaluation. No evidence of aneuploidy for chromosomes 3, 7, or 17 or deletion of the 9p21 locus was found in cells present in this specimen. This test does not rule out the possibility of a low grade non-invasive papillary urothelial carcinoma. These findings should be correlated with cytology and cystoscopy results.* Microscopic Notes - Microscopic Notes - Abnormal cells 9p21 deletions: Abnormal cells aneploid events: Total cells analyzed: 115 Hematuria: Gross Description Site ID:A color Pale Yellow fixative Alcohol Received 90 mls of clear pale yellow fluid with the patient's name and, Urine on the vial. Electronically signed by : on: 03/29/2022 10:51:08 Performed By: #### 1 [id number] ####[facility] [address] [place] [address] Patient Educationon 03-27-20 22 Patient Education Urology Benign Prostatic Hyperplasia Benign prostatic hyperplasia (BPH) is an enlarged prostate gland that is caused by the normal aging process and not by cancer. The prostate is a walnut-sized gland that is involved in the production of semen. It is located in front of the rectum and below the bladder. The bladder stores urine and the urethra is the tube that carries the urine out of the body. The prostate may get bigger as a man gets older. An enlarged prostate can press on the urethra. This can make it harder to pass urine. The build-up of urine in the bladder can cause infection. Back pressure and infection may progress to bladder damage and kidney (renal) failure. What are the causes? This condition is part of a normal aging process. However, not all men develop problems from this condition. If the prostate enlarges away from the urethra, urine flow will not be blocked. If it enlarges toward the urethra and compresses it, there will be problems passing urine. What increases the risk? This condition is more likely to develop in men over the age of 50 years. What are the signs or symptoms? Symptoms of this condition include: ? Getting up often during the night to urinate. ? Needing to urinate frequently during the day. ? Difficulty starting urine flow. ? Decrease in size and strength of your urine stream. ? Leaking (dribbling) after urinating. ? Inability to pass urine. This needs immediate treatment. ? Inability to completely empty your bladder. ? Pain when you pass urine. This is more common if there is also an infection. ? Urinary tract infection (UTI). How is this diagnosed? This condition is diagnosed based on your medical history, a physical exam, and your symptoms. Tests will also be done, such as: ? A post-void bladder scan. This measures any amount of urine that may remain in your bladder after you finish urinating. ? A digital rectal exam. In a rectal exam, your health care provider checks your prostate by putting a lubricated, gloved finger into your rectum to feel the back of your prostate gland. This exam detects the size of your gland and any abnormal lumps or growths. ? An exam of your urine (urinalysis). ? A prostate specific antigen (PSA) screening. This is a blood test used to screen for prostate cancer. ? An ultrasound. This test uses sound waves to electronically produce a picture of your prostate gland. Your health care provider may refer you to a specialist in kidney and prostate diseases (urologist). How is this treated? Once symptoms begin, your health care provider will monitor your condition (active surveillance or watchful waiting). Treatment for this condition will depend on the severity of your condition. Treatment may include: ? Observation and yearly exams. This may be the only treatment needed if your condition and symptoms are mild. ? Medicines to relieve your symptoms, including: ? Medicines to shrink the prostate. ? Medicines to relax the muscle of the prostate. ? Surgery in severe cases. Surgery may include: ? Prostatectomy. In this procedure, the prostate tissue is removed completely through an open incision or with a laparoscope or robotics. ? Transurethral resection of the prostate (TURP). In this procedure, a tool is inserted through the opening at the tip of the penis (urethra). It is used to cut away tissue of the inner core of the prostate. The pieces are removed through the same opening of the penis. This removes the blockage. ? Transurethral incision (TUIP). In this procedure, small cuts are made in the prostate. This lessens the prostate's pressure on the urethra. ? Transurethral microwave thermotherapy (TUMT). This procedure uses microwaves to create heat. The heat destroys and removes a small amount of prostate tissue. ? Transurethral needle ablation (TUNA). This procedure uses radio frequencies to destroy and remove a small amount of prostate tissue. ? Interstitial laser coagulation (ILC). This procedure uses a laser to destroy and remove a small amount of prostate tissue. ? Transurethral electrovaporization (TUVP). This procedure uses electrodes to destroy and remove a small amount of prostate tissue. ? Prostatic urethral lift. This procedure inserts an implant to push the lobes of the prostate away from the urethra. Follow these instructions at home: ? Take dvuq-cgh-klsrdrx and prescription medicines only as told by your health care provider. ? Monitor your symptoms for any changes. Contact your health care provider with any changes. ? Avoid drinking large amounts of liquid before going to bed or out in public. ? Avoid or reduce how much caffeine or alcohol you drink. ? Give yourself time when you urinate. ? Keep all follow-up visits as told by your health care provider. This is important. Contact a health care provider if: ? You have unexplained back pain. ? Your symptoms do not get better with treatment. ? You d (more content not included)... Normal [facility] Urology Office/Clinic Noteon 03-27-2022 Urology Office/Clinic Note Chief Complaint F/U to Cysto HPI Staff This is a 67 year old male here for F/U to Cysto done 03/21/22. Previous DX: BPH w/LUTS, elevated PSA and asymptomatic micro hematuria. PSA 4.9 with 15.5% done 03/12/22. Previous PSA 5.48 done 05/26/21. Pt. taking Flomax 0.4mg Dysuria: Pt. states a little Incomplete bladder emptying: no Hematuria: UA shows small today Frequency: no Urgency: yes Nocturia: 1x Stream: good stream Leaking: yes Post void dripping: no Wearing pads/ Depends: no Urge incontinence: yes Stress incontinence: no Incontinence without Sensory Awareness: no Abdominal pain: no Flank pain: no History of Present Illness Tests reviewed: reviewed UA I have reviewed the previous health record information and history for this patient from Dr. Rausch. I have reviewed and verified the staff HPI to be accurate for this encounter. There have been no associated fever, chills, flank pain, or blood in the urine. Denies any urinary infections since last encounter. Review of Systems ROS - Provider Constitutional: denies weight loss, denies hot flashes. Eyes: denies eye problems. Gastrointestinal: denies nausea, denies vomiting. Cardiovascular: denies chest pain or angina. Integumentary: no dryness Musculoskeletal: denies musculoskeletal symptoms. ENMT: denies otolaryngeal symptoms. Respiratory: no shortness of breath. Heme/Lymph: denies easy bleeding tendency, denies easy bruising tendency. Psychiatric: no confusion, no anxiety. Genitourinary: denies dysuria, denies hematuria, denies discharge, denies urinary frequency, denies urinary hesitancy, denies nocturia, denies incontinence, denies genital sores, denies decreased libido, and denies erectile dysfunction. Physical Exam Vitals & Measurements HR: 57(Peripheral) RR: 16 BP: 154/57 HT: 64 in HT: 162 cm WT: 67.2 kg WT: 147.84 lb BMI: 25.61 General Appearance: alert, no distress, well nourished, well developed male. Genitourinary: normal scrotum, normal testes, normal urethra, normal epididymis, normal vas deferens/spermatic cord. Flank Pain: none. Bladder: nonpalpable Assessment/Plan 1. Elevated PSA (R97.20: Elevated prostate specific antigen [PSA]) Hx of fluctuating PSA. Current level 4.9 & 15.5% done 03/12/22 which decreased from 6.02 done 12/14/21. Prior level 5.48 done 05/26/21. Will continue to monitor. Pt. to follow up with Dr. Mondragon with repeat levels in 6 months. 2. BPH with obstruction/lower urinary tract symptoms (N40.1: Benign prostatic hyperplasia with lower urinary tract symptoms) Patient continues Tamsulosin 0.4mg qd, discussed effectiveness of BPH medications. Cysto shows normal prostate, moderately obstructing with a slight elevated middle lobe as well as 3.5 cm prostate fossa. There is no indication for outlet procedures at this time. Will continue monitoring sxs. All questions/concerns were discussed. Pt. to call the office if heencounters any issues prior. Pt. acknowledges understanding. 3. Benign essential microscopic hematuria (R31.1: Benign essential microscopic hematuria) S/p Cysto 01/2018 & 03/21/[address] AP w con done 12/14/21 neg. for bladder tumors or lesions. SMALL blood per today's UA. Denies gross hematuria. He is aware to call if he would witness blood in urine. Still waiting on FISH cytology cystoscopy was negative and CT negative he does have that mildly elevated PSA. When I did the cystoscopy I did a SOFIA and the patient was 40 g and clinically benign. And the cystoscopy showed moderately intrusion detrusor of right and left lateral lobes a very small middle lobe and I thought the Flomax would suffice. And his symptoms suggest that it will for now. I suggested he follow-up with Dr. Mondragon next September to get a PSA free and total at the time and SOFIA if necessary if the PSA goes higher and possibly will need a biopsy and/or MRI Follow-up With When Contact Information Giancarlo Campbell MD, Monica Menendez, [facility] [address] [place] [address]- Additional Instructions: 6 mos PSA free & total Patient Education Benign Prostatic Hyperplasia Inga Fox, personally scribed for Dr. Rausch on 03/27/2022 10:31:33. Documentation recorded by the Inga torres, accurately reflects the services(s) I performed and decisions made by me. Authenticated by Dr. Rausch on 03/27/2022 10:34:25.10:31:33. 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 Medications Keflex 500 mg Cap, 500 mg= 1 cap(s), Oral, Daily pantoprazole, 40 mg, Oral, Daily tamsulosin 0.4 mg Cap, 0.4 mg= 1 cap(s), Oral, Daily, 3 refills Allergies No Known Medication Allergies Social Hist (more content not included)... Normal [facility] Comment on above: Result Comment: Elec tronically Signed By: Casper RAUSCH MD\.br\Date and Time Signed: 03/27/22 10:34 EDT\.br\Electronically Co-Signed By: Inga Woodruff\.br\Date and Time Co-Signed: 03/27/22 10:32 EDT Coding Summary.on 03-22-2022 Coding Summary. [id number] [file] ZTog (more content not included)... Normal [facility] Consent for Procedure/Surger yon 03-21-2022 Consent for Procedure/Surgery [id number]:127 Normal [facility] Consent for Treatmenton Consent for Treatment [id number]:127 Normal [facility] Inpatient Patient Summaryon 03-21-2022 Inpatient Patient Summary [address] [address] Clinical Summary Person Information Name: GUI ORTIZ SR Age: 67 Years : 1955 Sex: Male PCP: Tyson Jaquez MD Marital Status: Phone: [phone] Race: White Ethnicity: or Language: Maltese MRN: [id number] Visit Id: Visit 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 / ELEVATED PSA / HEMATURIA Speciality: Acuity: Enc Type: Outpatient Med Service: Surgery Arrival: 03/21/2022 10:25:04 Discharge: Dispo Type: Address: [facility] [id number] Provider Notes: Diagnosis: Problems Active Asymptomatic microscopic hematuria Peyronie disease Microhematuria Dysuria Elevated PSA BPH with obstruction/lower urinary tract symptoms Smoking Status: Functional Status: Sensory Deficits: History of Falls: Mobility Assistance Prior to Admission: ADLs: Current Level of Assistance for Self-Care/Mobility: Cognitive Status: Allergies No Known Medication Allergies Laboratory or Other Results This Visit (last charted value for your 03/21/2022 visit) No Laboratory or Other Results This Visit Measurements: Height: 162 cm Weight: 67.2 kg Blood Pressure: Not Valued / Not Valued BMI: 25.61 kg/m2 Procedures No Procedures Documented Immunizations No Immunizations Documented This Visit Final Med List: cephalexin (Keflex 500 mg Cap) 1 Capsules By Mouth every day. Take 1 tab day before procedure and 1 after procedure. Refills: 0. pantoprazole 40 Milligram By Mouth every day. tamsulosin (tamsulosin 0.4 mg Cap) 1 Capsules By Mouth every day. Refills: 3. Care Team Members: Attending Physician: Casper RAUSCH MD Consulting Physician: Referring Physician: Casper RAUSCH MD Follow up: With: Address: When: Casper RAUSCH [address] [place] [address] Business (1) Within 5 to 7 days With: Address: When: Casper RAUSCH [address] [place] [address] Business (1) Type Location Start [facility] Office Visit [facility] 05/22/2022 11:00 AM 05/22/2022 11:15 AM Confirmed Patient Education Information: Normal [facility] IntraOperative Documentson 1 IntraOperative Documents [id number]:127 Normal [facility] Main OR Intraoperative Recor don 03-21-2022 Main OR Intraoperative Record IntraOp Document Type FTURO Summary Primary Physician: Casper RAUSCH MD Finalized Date/Time: 03/21/22 11:42:35 Pt. Name: ANGEL MULLIGANGUI/Sex: 1955 Male Med Rec #: [id number] Physician: Casper RAUSCH MD Financial #: [id number] Pt. Type: O Room/Bed: / Admit/Disch: 03/21/22 10:25:04 - Institution: Case Times FTURO Entry 1 Patient Times In Room 03/21/22 11:15:00 Out Room 03/21/22 11:26:00 Procedure Times Start 03/21/22 11:17:00 Stop 03/21/22 11:23:00 Anesthesia Times Last Modified By: Mao EASON, SONIA, Irina 03/21/22 11:40:39 Case Attendance FTURO Entry 1 Entry 2 Entry 3 Case Attendee Casper RAUSCH MD RN, ZAHRAAOR, Nikole DOLAN, Usha Arevalo Role Performed Surgeon - Primary Bus Transportation Manager - Primary Scrub - Primary Time In 03/21/22 11:15:00 03/21/22 11:15:00 03/21/22 11:15:00 Time Out 03/21/22 11:26:00 03/21/22 11:26:00 03/21/22 11:26:00 Procedure CYSTOSCOPY LOCAL(.) CYSTOSCOPY LOCAL(.) CYSTOSCOPY LOCAL(.) Comments Last Modified By: Mao RN, ZAHRAAOR, Mao EASON, ZAHRAAOR, Mao EASON, ZAHRAAOR, Irina 03/21/22 Irina 03/21/22 Irina 03/21/22 11:40:40 11:40:40 11:40:40 Surgical Procedures FTURO Entry 1 Procedure Description Procedure CYSTOSCOPY LOCAL Modifiers . Surgeon Description CYSTOSCOPY Primary Procedure Yes Primary Surgeon Casper RAUSCH MD Start 03/21/22 11:17:00 Stop 03/21/22 11:23:00 Anesthesia Type Local Surgical Service Urology Wound Class 2 - Clean-Contaminated Last Modified By: Mao EASON, SONIA, Irina 03/21/22 11:40:42 General Case Data FTURO Pre-Care Text: Classifies surgical wound, implements aseptic technique, initiates traffic control Entry 1 Case Information OR URO 1 FT Case Level None Wound Class 2 - Clean-Contaminated Specialty Urology Preop Diagnosis BPH WITH OBSTRUCTION / Postop Same As Preop No URINARY TRACT SYMPTOMS / ELEVATED PSA / HEMATURIA Postop Diagnosis BPH WITH OBSTRUCTION / Outcomes Met? Yes URINARY TRACT SYMPTOMS / ELEVATED PSA / HEMATURIA Last Modified By: SONIA Cavanaugh RN, Ruthann 03/21/22 11:18:29 Post-Care Text: The patient is free from signs and symptoms of infection EU IntraOp - FTURO Pre-Care Text: Implements protective measures prior to operative or invasive procedure, confirms identity before the operative or invasive procedure, verifies operative procedure, surgical site, and laterality Entry 1 EU Perioperative Protocols Procedure(s) CYSTOSCOPY LOCAL(.) Patient Identity Birthday, ID Band Verified (select at Check, Patient least 2): Participation Consents / H and P HandP, Surgery/Procedure Operative Site N/A Verified Consent Marking Verified Surgical Site Yes Laterality Verified n/a Verified Procedure Verified Yes Correct Patient Yes Position Verified Availability Equipment, Medication Time Out SHALOM MONTES DE OCA, Casper Grace, Verified (If Participants SONIA Cavanaugh RN, Applicable) Nikole Arevalo CST, Kimberly A Time Out Complete 03/21/22 11:16:00 Allergies Reviewed? Yes Allergies Reviewed Self/Patient With Body Position Supine Prep Area penis Prep Agents Betadine Solution Skin. Condition Unable to Visualize Additional None Specimens Collected Vitals - EU Blood Pressure 100/70 Pulse 59 bpm Respirations 10 br/min SPO2 EBL 0 IandO - EU Total Intake 0 mL Total Output 0 mL Outcomes Met? Yes Last Modified By: SONIA Cavanaugh RN, Ruthann 03/21/22 11:42:30 Post-Care Text: The patient is free from signs and symptoms of injury caused by extraneous objects Sign Out FTURO Entry 1 Before Patient Leaves OR Nurse verbally Yes Nurse verbally Yes confirms with the confirms with the team the name of team that the procedure(s) instrument, sponge, recorded and needle counts are correct (or N/A) Nurse verbally Yes Nurse verbally n/a confirms with the confirms with the team how the team whether there specimen is labeled are any equipment (including patient problems to be name), if applicable addressed Sign Out Complete 03/21/22 11:26:00 Last Modified By: SONIA Cavanaugh RN, Ruthann 03/21/22 11:41:09 Case Comments Finalized By: SONIA Cavanaugh RN, Ruthann Document Signatures Signed By: SONIA Cavanaugh RN, Ruthann 03/21/22 11:42 Normal [facility] Main OR Preoperative Recordo n 03-21-2022 Main OR Preoperative Record Holding Area Document Type FTURO Summary Primary Physician: Casper RAUSCH MD Finalized Date/Time: 03/21/22 11:17:09 Pt. Name: ORTIZ GUI MULLIGAN/Sex: 1955 Male Med Rec #: [id number] Physician: Casper RAUSCH MD Financial #: [id number] Pt. Type: O Room/Bed: / Admit/Disch: 03/21/22 10:25:04 - Institution: Case Times Holding FTURO Pre-Care Text: Verifies consent for planned procedure, identifies individual values and wishes concerning care, includes family members in perioperative teaching Secures patient's records' belongings, and valuables, maintains patient's dignity and privacy, and maintains patient confidentiality Entry 1 In Holding 03/21/22 10:35:00 Outcomes Met? Yes Last Modified By: Adwoa Little LPN 03/21/22 10:35:04 Post-Care Text: The patient participates in decisions affecting his or her perioperative plan of care The patient's right to privacy is maintained Surgery Checklist FTURO Entry 1 Patient Birthday, ID Band Procedure Surgical Consent, With Identification: Check, Patient Verification: Patient Participation NPO after Midnight: n/a Personal Items: Dentures, Glasses Personal Items glasses, upper and Limitations: none Comment: lower partials, Complaints of Pain: No Skin Integrity Intact, [place], Warm, & Dry Vitals - EU Blood Pressure 100/70 Pulse 59 bpm Respirations 16 br/min SPO2 98 % Additional FISH RN Reviewed Yes Specimens Collected Last Modified By: SONIA Cavanaugh RN, Ruthann 03/21/22 11:17:07 General Comments: Temp 36.4 Temporal Finalized By: SONIA Cavanaugh RN, Ruthann Document Signatures Signed By: Adwoa Little LPN 03/21/22 10:38 SONIA Cavanaugh RN, Ruthann 03/21/22 11:17 Normal [facility] Operative Reporton 10-05-202 2 Operative Report Patient: ANUJ ORTIZ SR Age: 67 years Sex: Male : 1955 Associated Diagnoses: None Author: Casper RAUSCH MD Procedure Operative Information Pre-Op Dx: Frequency - R35.0, Urgency - R39.15, Nocturia - R35.1. Post-Op Dx: Same. Anesthesia Type: Local. Procedure: Local Cystoscopy. Complications: None. Risks/Benefits/Informed Consent: Surgical risks, benefits, details of the procedure have been explained to the patient, Full informed consent has been obtained. Intraoperative Information Prepped: Patient is brought back to the endoscopy suite, Patient is placed in supine position, Patient prepped in the usual fashion with Betadine solution, 2% Xylocaine Jelly is placed per Urethra, After waiting several minutes the Cystoscope is introduced. The Urethra is: Normal. The Prostatic Urethra is: Moderate Hypertrophy, This patient's is on Flomax from Dr. Mondragon the patient is here because he had microhematuria and increasing urgency and frequency. Patient had repeat blood test that are pending and a CT scan. I am placing the patient in the supine position prepped with a Betadine soap Betadine prep solution draped appropriately. 5 cc lidocaine gel per urethra. Flexible scope introduced urethra normal prostate moderately obstructing with a slight elevated middle lobe as well 3.5 cm prostate fossa. In the bladder orifices x2 normal position orthoptic Alexander place with clear flux in both. No tumors no calculi grade 2 trabeculations bladder filled fairly well and easily bladder drained procedure terminated. Final impression obstructive uropathy patient is already on tamsulosin we will discuss future options in the office shortly and go over all the lab and x-ray tests.. The Bladder is: Trabeculated Moderate (2). The ureteral orifices: Show efflux of clear urine. Devices Implanted: None. Removal: Cystoscope is removed, The patient tolerated it well. Postoperative Information Discharge: Patient is discharged home with antibiotic coverage, Follow up arranged. Normal [facility] Comment on above: Result Comment: Elec tronically Signed By: Casper RAUSCH MD\.br\Date and Time Signed: 03/21/22 11:28 EDT Outpatient Surgery Discharge Instructionon 03-21-2022 Outpatient Surgery Discharge Instruction [address] [address] Patient Discharge Instructions PERSON INFORMATION Name: GUI ORTIZ SR Date of : 1955 Current Date: 03/21/2022 11:24:15 PHYSICIANS Admitting Physician: Casper RAUSCH MD Comment: Discharge Diagnosis: GUI ORTIZ SR has been given the following list of follow-up instructions, prescriptions, and patient education materials: IF UNABLE TO CONTACT YOUR PHYSICIAN AND YOU FEEL IT IS AN EMERGENCY, GO TO THE NEAREST EMERGENCY ROOM OR CALL 911 Follow up: With: Address: When: Casper RAUSCH [address] [place] [address] Business (1) Within 5 to 7 days With: Address: When: Casper RAUSCH [address] [place] [address] [facility] (1) Type Location Start [facility] Office Visit [facility] [place] 05/22/2022 11:00 AM 05/22/2022 11:15 AM Confirmed Comment: PATIENT EDUCATION INFORMATION Instructions: I, GUI ORTIZ SR, have received the attached patient education materials/instructions and have verbalized understanding: May we do a follow up call? Yes No I was present when discharge instructions were given Patient Signature Date Clinican/Nurse Signature Date You may receive a survey from [employer] asking you to rate your care experience. Your feedback is important and will help us understand what we do well and how we can improve the quality of care we provide to you, your loved ones and our community. It?s an honor to serve you. Thank you for choosing [facility] Normal [facility] Patient Educationon 03-21-20 Patient Education Normal [facility] UroVysion Fish and Urine Cyt o ([facility])on 03-21-2022 [facility] Method of Extraction Voided Normal [facility] Comment on above: Performed By: #### 1 [id number] ####[facility] [address] [place] [address] [facility] Number of Jars 1 Invalid Interpretation Code [facility] Comment on above: Performed By: #### 1 [id number] ####[facility] [address] [place] [address] [facility] Specimen Urine Normal [facility] Comment on above: Performed By: #### 1 [id number] ####[facility] [address] [place] [address] [facility] Type of Service Technical Only Normal [facility] Comment on above: Performed By: #### 1 [id number] ####[facility] [address] [place] [address] Lab Reportson 03-15-2022 Lab Reports [id number] D:127 Normal [facility] PSA, FREE AND TOTAL RATIOon 03-13-2022 % Free PSA 15.5 % Normal [facility] Comment on above: Result Comment: The table below lists the probability of prostate cancer for men with non-suspicious SOFIA results and total PSA between 4 and 10 ng/mL, by patient age (Tere et al, CLAUDETTE 1998, 279:1542). % Free PSA 50-64 yr 65-75 yr 0.00-10.00% 56% 55% 10.01-15.00% 24% 35% 15.01-20.00% 17% 23% 20.01-25.00% 10% 20% >25.00% 5% 9% Please note: Tere et al did not make specific recommendations regarding the use of percent free PSA for any other population of men. Performed By: #### P SAFREE #### [facility] [address] [place] [address] Dr. Rehana Martinez Prostate specific Ag [Mass/Vol] 4.9 ng/mL Critically high 0.0-4.0 [facility] Comment on above: Result Comment: Arnoldo benedict ECLIA methodology. . According to the [employer], Serum PSA should decrease and remain at undetectable levels after radical prostatectomy. The AUA defines biochemical recurrence as an initial PSA value 0.2 ng/mL or greater followed by a subsequent confirmatory PSA value 0.2 ng/mL or greater. Values obtained with different assay methods or kits cannot be used interchangeably. Results cannot be interpreted as absolute evidence of the presence or absence of malignant disease. Performed By: #### P SAFREE #### [facility] [address] [place] [address] Dr. Rehana Martinez PSA, Free 0.76 ng/mL Normal N/A [facility] Comment on above: Result Comment: Roch ned ECLIA methodology. Performed By: #### P SAFREE #### [facility] [address] [place] [address] Dr. Rehana Martinez CREATININEon 12-14-2021 Creatinine [Mass/Vol] 1.01 mg/dL Normal 0.70-1.[address] [facility] Comment on above: Performed By: #### C MAXINE #### [facility] [address] [place] [address] Dr. Rehana Martinez EGFR-AF AUSTRIAN >60 Normal >=60 [facility] Comment on above: Performed By: #### C MAXINE #### [facility] [address] [place], [place] [address] Dr. Rehana Martinez EGFR-NON AF AUSTRIAN >60 Normal >=[address] [facility] Comment on above: Performed By: #### C MAXINE #### [facility] [address] [place], [place] [address] ABD/PELV W CONon 12-15-19 CT ABD/PELV W CON EXAMINATION: CT ABD/ PELV W CON, 12/14/2021 7:59 AM EDT HISTORY: Lower urinary tract symptoms due to benign prostatic hypertrophy COMPARISON: 12/20/1979 TECHNIQUE: CT scan of the abdomen and pelvis was performed with IV contrast. CT dose reduction technique was used, including Automated Exposure Control. FINDINGS: LUNG BASES: Mild right centrilobular emphysema. Coronary atherosclerosis LIVER: No enlargement, atrophy, abnormal density, or significant focal lesion. BILIARY: No dilatation or calcification. PANCREAS: No lesion, fluid collection, ductal dilatation, or atrophy. SPLEEN: No enlargement or focal lesion. ADRENALS: No mass or enlargement. KIDNEYS: No mass, obstruction, or calcification. BOWEL/MESENTERY: Colonic diverticulosis without evidence of acute diverticulitis. Nonobstructive bowel gas pattern. Normal appendix. AORTA/VASCULAR: No aortic aneurysm or dissection. Heavy diffuse atherosclerosis RETROPERITONEUM: No mass or adenopathy. LYMPH NODES: No adenopathy. URINARY BLADDER: Heterogeneous appearance on delayed imaging likely related to admixture of urine with contrast PELVIC ORGANS: Enlarged heterogeneous prostate gland with calcifications. The prostate gland measures 4.5 cm transversely ABDOMINAL WALL: Left inguinal hernia containing fat without strangulation BONES: Mild degenerative changes. Minimal anterior wedging T11-T12 and L1 OTHER: Negative. IMPRESSION: Enlarged heterogeneous prostate gland No acute intraperitoneal abnormality Electronically authenticated by: BRANDIE RUDD Date: 2021-12-14 11:36 Normal [facility] Vital Signs Date Time Vital Sign Value Performing Clinician Yunier nunez 03-27-2022 10:11-0400 Blood Pressure Location Casper RAUSCH [facility] 03-27-2022 10:11-0400 Diastolic blood pressure 57 mm[Hg] Casper RAUSCH [facility] 03-27-2022 10:11-0400 Heart rate 57 /min Casper RAUSCH [facility] 03-27-2022 10:11-0400 Respiratory rate 16 /min Casper RAUSCH [facility] 03-27-2022 10:11-0400 Systolic blood pressure 154 mm[Hg] Casper RAUSCH [facility] 12-05-2021 08:16-0400 Blood Pressure Location Monica Mondragon Jr. [facility] 12-05-2021 08:16-0400 Diastolic blood pressure 84 mm[Hg] Monica Mondragon Jr. [facility] 12-05-2021 08:16-0400 Heart rate 75 /min Monica Mondragon Jr. [facility] 12-05-2021 08:16-0400 Systolic blood pressure 118 mm[Hg] Monica Mondragon Jr. [facility] Encounters Encounter Date Encounter Type Care Provider Facility Start: 02-11-2024 ambulatory ELIZABETH Teague ty:PRICILA [facility] Start: 05-16-2023 ambulatory JUANITA COLEMAN [facility] Start: 05-14-2023 End: 05-14-2023 ambulatory VALENTINA CABRERA [facility] Start: 05-06-2023 Evaluation and manag ement of inpatient ELINA [facility] Start: 05-03-2023 End: 05-04-[facility] 05-01-[facility]23 Evaluation and manag ement of inpatient [facility] Start: 04-30-2023 Evaluation and manag ement of inpatient [facility] Start: 04-30-2023 Evaluation and manag ement of inpatient [facility] Start: 04-30-2023 Evaluation and manag ement of inpatient [facility] Start: 04-29-2023 Evaluation and manag ement of inpatient [facility] Start: 04-27-2023 Evaluation and manag ement of inpatient [facility] Start: 04-26-2023 Evaluation and manag ement of inpatient [facility] Start: 04-25-2023 Evaluation and manag ement of inpatient [facility] Start: 04-25-2023 Evaluation and manag ement of inpatient KAREY Dhaliwal [facility] Start: 04-24-2023 Evaluation and manag ement of inpatient [facility] Start: 04-24-2023 Evaluation and manag ement of inpatient [facility] Start: 04-23-2023 Evaluation and manag ement of inpatient CESAR [facility] Start: 04-23-2023 [facility]: 04-23-2023 End: 04-24-2023 Evaluation and management of inpatient [facility] Start: 04-23-2023 [facility]: 04-23-2023 Evaluation and manag ement of inpatient KAREY Dhaliwal [facility] Start: 04-22-2023 Evaluation and manag ement of inpatient [facility] Start: 04-22-2023 Evaluation and manag ement of inpatient [facility] Start: 04-22-2023 Evaluation and manag ement of inpatient KAREY ACUNAADALBERTOGARCIA [facility] Start: 04-22-2023 End: 05-01-2023 Evaluation and management of inpatient [facility] Start: 04-09-2023 End: 04-10-2023 Encounter for preprocedural cardiovascular examination [facility] Start: 04-09-2023 End: 04-10-2023 ambulatory [facility] Start: 04-04-2023 ambulatory [facility] Start: 03-23-2023 Evaluation and manag ement of inpatient KAREY ACUANMISSYLIZGARCIA [facility] Start: 03-23-2023 [facility]: 03-23-2023 Evaluation and manag ement of inpatient [facility] Start: 03-22-2023 Evaluation and manag ement of inpatient JENNA [facility] Start: 03-22-2023 Evaluation and manag ement of inpatient RODGER [facility] Start: 03-21-2023 End: 03-23-2023 Evaluation and management of inpatient [facility] Start: 01-29-2023 End: 01-30-2023 ambulatory ELIZABETH LINDSAY Facility:[facility] Start: 01-29-2023 End: 01-29-2023 Patient encounter procedure ELIZABETH LINDSAY [facility] Start: 09-11-2022 ambulatory [facility] Start: 09-06-2022 End: 09-07-2022 ambulatory [facility] Start: 09-04-2022 ambulatory [facility] Start: 08-06-2022 End: 08-07-2022 ambulatory [facility] Start: 08-04-2022 End: 08-05-[address] TYSON JAQUEZ . Facility:[facility] Start: 07-25-2022 End: 07-26-[address] TYSON JAQUEZ . Facility: Start: 03-27-2022 End: 03-28-2022 ambulatory Casper RAUSCH Facility:[facility] Start: 03-27-2022 End: 03-27-2022 Patient encounter procedure Casper RAUSCH [facility] Start: 03-21-2022 End: 03-22-2022 ambulatory Casper RAUSCH Facility[facility] Start: 03-21-2022 End: 03-21-2022 Patient encounter procedure Casper RAUSCH [facility] Start: 03-12-2022 End: 03-13-[address] CASPER RAUSCH Facility: Start: 02-05-2022 End: 02-05-2022 Patient encounter procedure Monica Mondragon Jr. [facility] Start: 12-14-2021 End: 12-15-2021 ambulatory MONICA MONDRAGON JR Facility: Start: 12-05-2021 End: 12-05-2021 Patient encounter procedure Monica Mondragon Jr. [facility] [place] Procedures Date Procedure Procedure Detail Performing Clinician Start: 05-16-2023 Follow-up visit MICHAEL NGUYEN Start: 05-14-2023 Follow-up visit MICHAEL NGUYEN Start: 04-04-2023 Follow-up visit MICHAEL IE PATRICK Start: 09-11-2022 Follow-up visit MICHAEL IE PATRICK Start: 09-04-2022 Follow-up visit MICHAEL NGUYEN Start: 07-25-[address] FABIOLA JAQUEZ . Comment on above: Performed By: #### P SASC #### [facility] [address] [place], [place] [address] Dr. Rehana Martinez Start: 03-21-2022 Cystoscopy ELIZABETH JOHNSTON Start: 12-14-[address] FABIOLA JAQUEZ . Comment on above: Performed By: #### P SAD ####[facility] [address] [place], [place] [address]NcDr. Rehana Martinez Start: 01-23-2018 Cystoscopy Monica stephen Jr. Comment on above: 07/22/09, 01/23/18 07/22/09, 01/23/18 Immunizations Immunization Date Immunization Notes Care Provider Cipriano moody 06-20-2021 SARS-CoV-2 (COVID-19 ) mRNA BNT-162b2 vax Casper RAUSCH [facility] 09-13-2020 SARS-CoV-2 (COVID-19 ) Ad26 vaccine, recombinant Monica Mondragon Jr. [facility] 08-22-2020 SARS-CoV-2 (COVID-19 ) Ad26 vaccine, recombinant Monica Mondragon Jr. [facility] NEGATED: Highlighted row has not occurred!12-05-2021 influenza virus vaccine, unspecified formulation Monica Mondragon Jr. [facility] Payers Date Payer Category Payer Medicare [id number] 1960 Unknown [id number] 1955 Unknown [id number] 2.16.84 [id number] 1955 Unknown [id number] 2.16.84 [id number] 1955 Unknown [id number] 2.16.84 [id number] 1955 Unknown [id number] 2.16.84 [id number] 1955 Unknown [id number] 2.16.8 [id number] 1955 Unknown [id number] 2.16.8 [id number] 1955 Unknown [id number] 2.16.8 [id number] 1955 Unknown [id number] 2.16.8 [id number] Social History Date Type Detail Facility Start: 12-05-2021 Tobacco smoking status Heavy t obacco smoker (finding) [facility] Sex Assigned At Male [facility] Functional Status Date Assessment Result Facility 01-29-2023 Functional Status N/A [facility] 03-27-2022 Functional Status N/A [facility] 03-15-2022 Functional Status N/A [facility] 12-05-2021 Functional Status N/A [facility] Clinical Notes 05-23-2021 to 05-16-2023 LaboratoryLaboratoryLaboratoryLaboratory Note Date & Type Note Facility 05-16-2023 Note [facility] 05-16-2023 Note [facility] 05-16-2023 Note [facility] 05-14-2023 Note [facility] 05-14-2023 Note [facility] 05-01-2023 Note Patient provided a c opy of the AVS. All questions answered. Patient discharged with belongings and taken down with transport via wheelchair and family at bedside. [facility] 05-01-2023 Note [facility] 05-01-2023 Note [facility] 05-01-2023 Note [facility] 05-01-2023 Note [facility] 04-30-2023 Note [facility] 04-30-2023 Note [facility] 04-29-2023 Note [facility] 04-29-2023 Note [facility] 04-29-2023 Note [facility] 04-29-2023 Note [facility] 04-28-2023 Note [facility] 04-28-2023 Note [facility] 04-27-2023 Note [facility] 04-27-2023 Note [facility] 04-27-2023 Note [facility] 04-27-2023 Note [facility] 04-26-2023 Note [facility] 04-26-2023 Note [facility] 04-26-2023 Note [facility] 04-26-2023 Note [facility] 04-26-2023 Note [facility] 04-26-2023 Note [facility] 04-25-2023 Note [facility] 04-25-2023 Note Attempted to call wi fe to get information and give updates. Was unable to reach her, will continue to try. [facility] 04-25-2023 Note [facility] 04-25-2023 Note [facility] 04-25-2023 Note [facility] 04-24-2023 Note Patient is still on vent support. Per RN was off and placed back on yesterday. Consult for s/p CABG. SW to follow. [facility] 04-24-2023 Note [facility] 04-24-2023 Note Physical Therapy Patient intubated/sedated at this time. PT will check back and follow as appropriate. CHANTEL Matos [facility] 04-24-2023 Note [facility] 04-24-2023 Note Occupational Therapy Cancel Note Reason: Patient intubated and sedated at this time. OT will continue to follow and will re-attempt as able. Time in: 0808 Check no charge Thelma Jin MOT, OTR/L, CLT [facility] 04-24-2023 Note [facility] 04-24-2023 Note [facility] 04-23-2023 Note [facility] 04-23-2023 Note [facility] 04-23-2023 Note [facility] 04-23-2023 Note [facility] 04-23-2023 Note [facility] 04-22-2023 Note TRIGGER: PRESSURE 1:1 FULLY AUGMENTED [facility] 04-22-2023 Note TRIGGER: PRESSURE 1:1 FULLY AUGMENTED [facility] 04-22-2023 Note INSERTED WITHOUT COM PLICATION USING STERILE TECHNIQUE; DRAINING CLEAR YELLOW URINE; TO BE MONITORED BY ANESTHESIA FOR DURATION OF THE CASE [facility] 04-22-2023 Note [facility] 04-22-2023 Note [facility] 04-22-2023 Note [facility] 04-09-2023 Note [facility] 04-04-2023 Note [facility] 04-01-2023 Note [facility] 03-23-2023 Note [facility] 03-23-2023 Note [facility] 03-22-2023 Note [facility] 03-22-2023 Note [facility] 09-11-2022 Note [facility] 09-04-2022 Note I reviewed with the resident the medical history and the resident???s findings on physical examination. I discussed with the resident the patient???s diagnosis and concur with the treatment plan as documented in the resident note. Shmuel Vásquez MD [facility] 09-04-2022 Note [facility] 03-27-2022 Hospital Discharge instructions Patient Education 03/27/2022 10:30:34 Benign Prostatic Hyperplasia Benign Prostatic Hyperplasia Benign prostatic hyperplasia (BPH) is an enlarged prostate gland that is caused by the normal aging process and not by cancer. The prostate is a walnut-sized gland that is involved in the production of semen. It is located in front of the rectum and below the bladder. The bladder stores urine and the urethra is the tube that carries the urine out of the body. The prostate may get bigger as a man gets older. An enlarged prostate can press on the urethra. This can make it harder to pass urine. The build-up of urine in the bladder can cause infection. Back pressure and infection may progress to bladder damage and kidney (renal) failure. What are the causes? This condition is part of a normal aging process. However, not all men develop problems from this condition. If the prostate enlarges away from the urethra, urine flow will not be blocked. If it enlarges toward the urethra and compresses it, there will be problems passing urine. What increases the risk? This condition is more likely to develop in men over the age of 50 years. What are the signs or symptoms? Symptoms of this condition include: Getting up often during the night to urinate. Needing to urinate frequently during the day. Difficulty starting urine flow. Decrease in size and strength of your urine stream. Leaking (dribbling) after urinating. Inability to pass urine. This needs immediate treatment. Inability to completely empty your bladder. Pain when you pass urine. This is more common if there is also an infection. Urinary tract infection (UTI). How is this diagnosed? This condition is diagnosed based on your medical history, a physical exam, and your symptoms. Tests will also be done, such as: A post-void bladder scan. This measures any amount of urine that may remain in your bladder after you finish urinating. A digital rectal exam. In a rectal exam, your health care provider checks your prostate by putting a lubricated, gloved finger into your rectum to feel the back of your prostate gland. This exam detects the size of your gland and any abnormal lumps or growths. An exam of your urine (urinalysis). A prostate specific antigen (PSA) screening. This is a blood test used to screen for prostate cancer. An ultrasound. This test uses sound waves to electronically produce a picture of your prostate gland. Your health care provider may refer you to a specialist in kidney and prostate diseases (urologist). How is this treated? Once symptoms begin, your health care provider will monitor your condition (active surveillance or watchful waiting). Treatment for this condition will depend on the severity of your condition. Treatment may include: Observation and yearly exams. This may be the only treatment needed if your condition and symptoms are mild. Medicines to relieve your symptoms, including: ?Medicines to shrink the prostate. ?Medicines to relax the muscle of the prostate. Surgery in severe cases. Surgery may include: ?Prostatectomy. In this procedure, the prostate tissue is removed completely through an open incision or with a laparoscope or robotics. ?Transurethral resection of the prostate (TURP). In this procedure, a tool is inserted through the opening at the tip of the penis (urethra). It is used to cut away tissue of the inner core of the prostate. The pieces are removed through the same opening of the penis. This removes the blockage. ?Transurethral incision (TUIP). In this procedure, small cuts are made in the prostate. This lessens the prostate's pressure on the urethra. ?Transurethral microwave thermotherapy (TUMT). This procedure uses microwaves to create heat. The heat destroys and removes a small amount of prostate tissue. ?Transurethral needle ablation (TUNA). This procedure uses radio frequencies to destroy and remove a small amount of prostate tissue. ?Interstitial laser coagulation (ILC). This procedure uses a laser to destroy and remove a small amount of prostate tissue. ?Transurethral electrovaporization (TUVP). This procedure uses electrodes to destroy and remove a small amount of prostate tissue. ?Prostatic urethral lift. This procedure inserts an implant to push the lobes of the prostate away from the urethra. Follow these instructions at home: Take xejo-xsa-ljobpql and prescription medicines only as told by your health care provider. Monitor your symptoms for any changes. Contact your health care provider with any changes. Avoid drinking large amounts of liquid before going to bed or out in public. Avoid or reduce how much caffeine or alcohol you drink. Give yourself time when you urinate. Keep all follow-up visits as told by your health care provider. This is important. Contact a health care provider if: You have unexplained back pain. Your symptoms do not get better with treatment. You develop side effects from the medicine you are taking. Your urine becomes very dark or has a bad smell. Your lower abdomen becomes distended and you have trouble passing your urine. Get help right away if: You have a fever or chills. You suddenly cannot urinate. You feel lightheaded, or very dizzy, or you faint. There are large amounts of blood or clots in the urine. Your urinary problems become hard to manage. You develop moderate to severe low back or flank pain. The flank is the side of your body between the ribs and the hip. These symptoms may represent a serious problem that is an emergency. Do not wait to see if the symptoms will go away. Get medical help right away. Call your local emergency services (911 in the [place] Do not drive yourself to the hospital. Summary Benign prostatic hyperplasia (BPH) is an enlarged prostate that is caused by the normal aging process and not by cancer. An enlarged prostate can press on the urethra. This can make it hard to pass urine. This condition is part of a normal aging process and is more likely to develop in men over the age of 50 years. Get help right away if you suddenly cannot urinate. This information is not intended to replace advice given to you by your health care provider. Make sure you discuss any questions you have with your health care provider. Document Released: 06/03/2006 Document Revised: 04/28/2019 Document Reviewed: 07/08/2017 [employer] Patient Education 2020 [employer]. Follow Up Care 03/21/2022 11:25:28 With:Giancarlo Campbell MD, Monica Menendez URO Address: [facility] [address], [place] [id number]- When: Unknown [facility] 03-21-2022 Note [id number] [facility] 02-27-2022 Hospital Discharge instructions Follow Up Care 02/27/2022 13:20:12 With:Casper RAUSCH [facility] [place] [phone]- Business (1) When:5 to 7 days With:Casper RAUSCH Address: Mona [facility] [place] [phone]- Business (1) When: Unknown [facility] 12-05-2021 Hospital Discharge instructions Patient Education 12/05/2021 08:48:09 Hematuria, Adult Hematuria, Adult Hematuria is blood in the urine. Blood may be visible in the urine, or it may be identified with a test. This condition can be caused by infections of the bladder, urethra, kidney, or prostate. Other possible causes include: Kidney stones. Cancer of the urinary tract. Too much calcium in the urine. Conditions that are passed from parent to child (inherited conditions). Exercise that requires a lot of energy. Infections can usually be treated with medicine, and a kidney stone usually will pass through your urine. If neither of these is the cause of your hematuria, more tests may be needed to identify the cause of your symptoms. It is very important to tell your health care provider about any blood in your urine, even if it is painless or the blood stops without treatment. Blood in the urine, when it happens and then stops and then happens again, can be a symptom of a very serious condition, including cancer. There is no pain in the initial stages of many urinary cancers. Follow these instructions at home: Medicines Take auwh-uxb-rfcrrbq and prescription medicines only as told by your health care provider. If you were prescribed an antibiotic medicine, take it as told by your health care provider. Do not stop taking the antibiotic even if you start to feel better. Eating and drinking Drink enough fluid to keep your urine clear or pale yellow. It is recommended that you drink 3 4 quarts (2.8 3.8 L) a day. If you have been diagnosed with an infection, it is recommended that you drink cranberry juice in addition to large amounts of water. Avoid caffeine, tea, and carbonated beverages. These tend to irritate the bladder. Avoid alcohol because it may irritate the prostate (men). General instructions If you have been diagnosed with a kidney stone, follow your health care provider's instructions about straining your urine to catch the stone. Empty your bladder often. Avoid holding urine for long periods of time. If you are female: ?After a bowel movement, wipe from front to back and use each piece of toilet paper only once. ?Empty your bladder before and after sex. Pay attention to any changes in your symptoms. Tell your health care provider about any changes or any new symptoms. It is your responsibility to get your test results. Ask your health care provider, or the department performing the test, when your results will be ready. Keep all follow-up visits as told by your health care provider. This is important. Contact a health care provider if: You develop back pain. You have a fever. You have nausea or vomiting. Your symptoms do not improve after 3 days. Your symptoms get worse. Get help right away if: You develop severe vomiting and are unable take medicine without vomiting. You develop severe pain in your back or abdomen even though you are taking medicine. You pass a large amount of blood in your urine. You pass blood clots in your urine. You feel very weak or like you might faint. You faint. Summary Hematuria is blood in the urine. It has many possible causes. It is very important that you tell your health care provider about any blood in your urine, even if it is painless or the blood stops without treatment. Take aunj-kbo-ybmcrzp and prescription medicines only as told by your health care provider. Drink enough fluid to keep your urine clear or pale yellow. This information is not intended to replace advice given to you by your health care provider. Make sure you discuss any questions you have with your health care provider. Document Released: 06/03/2006 Document Revised: 10/28/2019 Document Reviewed: 07/06/2017 [employer] Patient Education 2020 [employer]. Follow Up Care 05/30/2021 15:33:59 With:Giancarlo Campbell MD, Monica Menendez URO Address: [facility] [address] [place] [phone] When: Unknown [facility] 05-23-2021 Hospital Discharge instructions Follow Up Care 05/23/2021 11:27:47 With:ELIZABETH LINDSAY PA-C, URL Address: [address] [place] [place] [address] When:Within 1 Year(s) Comments:w/PSA [facility] Evaluation + Plan note Future Appointments Appointment Date:05/22/2022 11:00:00 AM Scheduled Provider:Monica Mondragon Jr., MD Location:[facility] Appointment Type:URO Office Visit Diagnostic Tests PendingPSA Total 12/05/21 Future Scheduled TestsPSA Free & Total 05/30/21 [facility] Evaluation + Plan note Future Appointments Appointment Date:05/22/2022 11:00:00 AM Scheduled Provider:Monica Mondragon Jr., MD Location:[facility] Appointment Type:URO Office Visit Future Scheduled TestsPSA Free & Total 05/30/21 [facility] Evaluation + Plan note Future Appointments Appointment Date:03/27/2022 09:45:00 AM Scheduled Provider:Casper RAUSCH MD Location:[facility] Appointment Type:URO Office Visit Appointment Date:05/22/2022 11:00:00 AM Scheduled Provider:Monica Mondragon Jr., MD Location:[facility] Appointment Type:URO Office Visit Diagnostic Tests PendingUroVysion Fish and Urine Cyto ([facility]) 03/21/22 Future Scheduled TestsPSA Free & Total 05/30/21 [facility] Evaluation + Plan note Future Appointments Appointment Date:09/18/2022 09:15:00 AM Scheduled Provider:Monica Mondragon Jr., MD Location:[facility] Appointment Type:URO Office Visit Diagnostic Tests PendingPSA Free & Total 06/17/22 Future Scheduled TestsPSA Free & Total 05/30/21 [facility] Evaluation + Plan note Future Appointments Appointment Date:02/11/2024 08:30:00 AM Scheduled Provider:ELIZABETH LINDSAY PA-C Location:[facility] Appointment Type:URO Office Visit Diagnostic Tests PendingPSA Total 01/29/23 [facility] Hospital course Narrative No data available for this section [facility] Hospital Discharge instructions No data available for this section [facility] [place] note No data available for this section [facility] Summary Purpose Family History No Family History Records FoundNo Family History Records FoundNo Family History Records Found Advance Directives No Advanced Directives Records FoundNo Advanced Directives Records FoundNo Advanced Directives Records Found Additional Source Comments Care Team (unrecognized sect ion and content) Personnel Name: Tyson Jaquez MD Address: [address] [place] [address] Personnel Name: Tyson Jaquez MD Address: [address] [place] [address] Personnel Name: Tyson Jaquez MD Address: Address: [address] [place] [address] Personnel Name: Tyson Jaquez MD Address: Address: [address] [place] [address] Personnel Name: Tyson Jaquez MD Address: Address: [address] [place] [address] (unrecognized sect ion and content) No Status Records FoundNo Status Records FoundNo Status Records Found INFORMATION SOURCE (unrecogn ized section and content) DATE CREATED AUTHOR 08/10/2022 [facility] DATE CREATED AUTHOR AUTHOR'S ORGANIZ ATION 02/13/2023 [facility] DATE CREATED AUTHOR AUTHOR'S ORGANIZ ATION 05/21/2023 [facility] FOR RECORDS PERTAINING TO PATIENTS WHO ARE OR HAVE BEEN ENROLLED IN A CHEMICAL DEPENDENCY/SUBSTANCEABUSE PROGRAM, SOME INFORMATION MAY BE OMITTED. This clinical summary was aggregated from multiple sources. Caution should be exercised in using it in the provision of clinical care. This summary normalizes information from multiple sources, and as a consequence, information in this document may materially change the coding, format and clinical context of patient data. In addition, data may be omitted in some cases. CLINICAL DECISIONS SHOULD BE BASED ON THE PRIMARY CLINICAL RECORDS. [facility], [facility]. provides no warranty or guarantee of the accuracy or completeness of information in this document.
== END 2023-05-07 12:12 | disposition home or self-care (01) | DRG 193 ==
LOC: ER 19:57 → ICU 20:54
PROVIDERS: Emergency Medicine; Internal Medicine; Admitting Provider Family Medicine; Emergency Provider Emergency Medicine; PCP Family Medicine; Visit Provider Family Medicine
DX: J18.9 Pneumonia, unspecified organism (principal); I21.4 Non-ST elevation (NSTEMI) myocardial infarction; I25.10 Atherosclerotic heart disease of native coronary artery without angina pectoris; I10 Essential (primary) hypertension; I73.9 Peripheral vascular disease, unspecified; M10.9 Gout, unspecified; I25.2 Old myocardial infarction; R91.8 Other nonspecific abnormal finding of lung field; Z95.1 Presence of aortocoronary bypass graft; Z79.899 Other long term (current) drug therapy; Z79.02 Long term (current) use of antithrombotics/antiplatelets; Z79.82 Long term (current) use of aspirin; Z87.891 Personal history of nicotine dependence
CPT/HCPCS: 36415; 71045; 71046; 80048; 81003; 82948; 83880; 84484; 85025; 87040; 87070; 93005; 94761; 96365; 96366; 96367; 96372; 99285; J0456; Q3014

== ENCOUNTER 2023-06-06 13:53 | Outpatient (OUT) | payer MEDICARE, SELFPAY ==
--- OUTSIDE RECORDS SUMMARY | 2023-06-06 13:57 | XMS_ITS | CCD ---
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/pharmacy #[id number], 162, cm, 12/05/21 8:20:00 EDT, Height/Length [...] procedure, # 2 cap(s), Refills(s) 0, Pharmacy: [facility]/pharmacy #[id number], 162, cm, 12/05/21 8:20:00 EDT, Height/Length [...] disease (8 sources) Atherosclerotic heart disease of [place] coronary artery without angina pectoris; Translations: [Unstable [...] Results Test Name Value Interpretation Reference Range Facility 29on 05-16-2023 29 Addended by: PASCUAL VELARDE on: 05/16/2023 03:51 PM Modules accepted: Orders [facility] 29 Addended by: PASCUAL VELARDE on: 05/16/2023 03:50 PM Modules accepted: Orders [facility] Follow-Upon 05-16-2023 Follow-Up Normal [facility] 36on 05-03-2023 36 Normal [facility] Telephoneon 05-03-2023 Telephone [phone] Gui Ortiz 1955 M Date Provider Department [place] 05/03/2023 SAEID MARISCAL HVCVASENDA[place] [facility] Family History Family history unknown: Yes Normal [facility] 36on 05-02-2023 36 Normal [facility] 30on 05-01-2023 30 Normal [facility] 30 Normal [facility] BASIC METABOLIC PANELon 04-17 Anion gap [Moles/Vol] 11 mmol/L Normal 7-20 [facility] Comment on above: Performed By: #### L [id number] ####[facility] ([facility])[address] [place] [address] Calcium [Mass/Vol] 8.4 mg/dL Low 8.6-10.3 [facility] Comment on above: Performed By: #### L [id number] ####[facility] ([facility])[address] [place] [address] Chloride [Moles/Vol] 109 mmol/L High 98-107 [facility] Comment on above: Performed By: #### L [id number] ####[facility] ([facility])[address] [place] [address] CO2 [Moles/Vol] 22 mmol/L Normal 21-31 [facility] Comment on above: Performed By: #### L [id number] ####[facility] ([facility])[address] [place] [address] Creatinine [Mass/Vol] 0.62 mg/dL Low 0.70-1.30 [facility] Comment on above: Performed By: #### L [id number] ####[facility] ([facility])[address] [place] [address] GLOMERULAR FILTRATION RATE ML/MIN/1.73 SQ M.PREDICTED 103.5 mL/min/1.73m*2 Normal >60.0 [facility] Comment on above: Result Comment: The [facility]???s estimated glomerular filtration rate (eGFR) will no [...] of individuals. Performed By: #### L [id number] ####[facility] ([facility])[address] [place] [address] Glucose [Mass/Vol] 98 mg/dL Normal 70-100 [facility] Comment on above: Performed By: #### L [id number] ####[facility] ([facility])[address] [place] [address] Potassium [Moles/Vol] 3.7 mmol/L Normal 3.5-5.1 [facility] Comment on above: Performed By: #### L [id number] ####[facility] ([facility])[address] [place] [address] Sodium [Moles/Vol] 138 mmol/L Normal 136-145 [facility] Comment on above: Performed By: #### L [id number] ####[facility] ([facility])[address] [place] [address] Urea nitrogen [Mass/Vol] 12 mg/dL Normal 7-25 [facility] Comment on above: Performed By: #### L [id number] ####[facility] ([facility] [place] [address] UREA NITROGEN/CREATININ E (MASS RATIO) IN SER/PLAS 19.4 Normal [facility] Comment on above: Performed By: #### L [id number] ####[facility] ([facility] [place] [address] CBCon 05-01-2023 Erythrocyte distribution width (RBC) [Ratio] 14.5 % Normal 11.5-15.0 [facility] Comment on above: Performed By: #### L [id number] ####[facility] ([facility])[address] [place], [place] [address] ERYTHROCYTE MEAN CORPUSCULAR HEMOGLOBIN CONCENTRATION (G/DL) BY AUTOMATED 33.2 g/dL Normal 32.0-35.0 [facility] Comment on above: Performed By: #### L [id number] ####[facility] ([facility])[address], [place] [address] Hematocrit (Bld) [Volume fraction] 27.4 % Low 39.0-55.0 [facility] Comment on above: Performed By: #### L [id number] ####[facility] ([facility] [place], [place] [address] Hemoglobin (Bld) [Mass/Vol] 9.1 g/dL Low 13.0-17.0 [facility] Comment on above: Performed By: #### L [id number] ####[facility] ([facility] [place], [place] [address] MCH (RBC) [Entitic mass] 30.7 pg Normal 27.0-33.0 [facility] Comment on above: Performed By: #### L [id number] ####[facility] ([facility] [place] [address] MCV (RBC) [Entitic vol] 92.6 fL Normal 82.0-98.0 [facility] Comment on above: Performed By: #### L [id number] ####[facility] ([facility])[address] [place] [address] PLATELETS (10*3/UL) IN BLOOD AUTOMATED COUNT 276 10*3/uL Normal 150-400 [facility] Comment on above: Performed By: #### L [id number] ####[facility] ([facility])[address] [place] [address] RBC (Bld) [#/Vol] 2.96 10*6/uL Low 4.20-5.70 [facility] Comment on above: Performed By: #### L [id number] ####[facility] ([facility])[address] [place] [address] WBC (Bld) [#/Vol] 6.87 10*3/uL Normal 4.00-10.60 [facility] Comment on above: Performed By: #### L [id number] ####[facility] ([facility])[address] [place] [address] DSon 05-01-2023 DS Normal [facility] MAGNESIUMon 05-01-2023 Magnesium [Mass/Vol] 1.7 mg/dL Low 1.9-2.7 [facility] Comment on above: Performed By: #### L [id number] ####[facility] ([facility])[address] [place] [address] NURSNOTEon 05-01-2023 NURSNOTE Normal [facility] NURSNOTE Normal [facility] PHOSPHORUSon 05-01-2023 Magnesium [Mass/Vol] 3.8 mg/dL Normal 2.5-5.0 [facility] Comment on above: Performed By: #### L [id number] ####[facility] ([facility])[address] [place] [address] POCT GLUCOSE METER UNSOLICIT ED RESULTSon 05-01-2023 Glucose [Mass/Vol] 116 mg/dL High 70-105 [facility] Comment on above: Order Comment: Waive d Testing in the ED is performed under the ED CLIA certificate #[id number]. Result Comment: [email or web address] Performed By: #### L [id number] ####[facility] ([facility])[address] [place] [address] Glucose [Mass/Vol] 115 mg/dL High 70-105 [facility] Comment on above: Order Comment: Waive d Testing in the ED is performed under the ED CLIA certificate #[id number]. Result Comment: [email or web address] Performed By: #### L [id number] ####[facility] ([facility] [place] [address] 30on 04-30-2023 30 Normal [facility] 30 Normal [facility] 30 Normal [facility] BASIC METABOLIC PANELon 04-17 Anion gap [Moles/Vol] 12 mmol/L Normal 7-20 [facility] Comment on above: Performed By: #### L [id number] ####[facility] ([facility])[address] [place] [address] Calcium [Mass/Vol] 8.3 mg/dL Low 8.6-10.3 [facility] Comment on above: Performed By: #### L [id number] ####[facility] ([facility])[address] [place] [address] Chloride [Moles/Vol] 109 mmol/L High 98-107 [facility] Comment on above: Performed By: #### L [id number] ####[facility] ([facility])[address] [place] [address] CO2 [Moles/Vol] 21 mmol/L Normal 21-31 [facility] Comment on above: Performed By: #### L [id number] ####[facility] ([facility])[address] [place] [address] Creatinine [Mass/Vol] 0.70 mg/dL Normal 0.70-1.30 [facility] Comment on above: Performed By: #### L [id number] ####[facility] ([facility])[address] [place] [address] GLOMERULAR FILTRATION RATE ML/MIN/1.73 SQ M.PREDICTED 99.7 mL/min/1.73m*2 Normal >60.0 [facility] Comment on above: Result Comment: The [facility]???s estimated glomerular filtration rate (eGFR) will no [...] of individuals. Performed By: #### L [id number] ####[facility] ([facility])[address] [place] [address] Glucose [Mass/Vol] 104 mg/dL High 70-100 [facility] Comment on above: Performed By: #### L [id number] ####[facility] ([facility])[address] [place] [address] Potassium [Moles/Vol] 3.7 mmol/L Normal 3.5-5.1 [facility] Comment on above: Performed By: #### L [id number] ####[facility] ([facility])[address] [place] [address] Sodium [Moles/Vol] 138 mmol/L Normal 136-145 [facility] Comment on above: Performed By: #### L [id number] ####[facility] ([facility])[address] [facility] [address] Urea nitrogen [Mass/Vol] 15 mg/dL Normal 7-25 [facility] Comment on above: Performed By: #### L [id number] ####[facility] ([facility])[address] [place] [address] UREA NITROGEN/CREATININ E (MASS RATIO) IN SER/PLAS 21.4 Normal [facility] Comment on above: Performed By: #### L [id number] ####[facility] ([facility])[address] [place] [address] CBCon 04-30-2023 Erythrocyte distribution width (RBC) [Ratio] 13.8 % Normal 11.5-15.0 [facility] Comment on above: Performed By: #### L [id number] ####[facility] ([facility])[address] [place] [address] ERYTHROCYTE MEAN CORPUSCULAR HEMOGLOBIN CONCENTRATION (G/DL) BY AUTOMATED 32.6 g/dL Normal 32.0-35.0 [facility] Comment on above: Performed By: #### L [id number] ####[facility] ([facility])[address] [place] [address] Hematocrit (Bld) [Volume fraction] 27.3 % Low 39.0-55.0 [facility] Comment on above: Performed By: #### L [id number] ####[facility] ([facility])[address] [place] [address] Hemoglobin (Bld) [Mass/Vol] 8.9 g/dL Low 13.0-17.0 [facility] Comment on above: Performed By: #### L [id number] ####[facility] ([facility])[address] [place] [address] MCH (RBC) [Entitic mass] 30.4 pg Normal 27.0-33.0 [facility] Comment on above: Performed By: #### L [id number] ####[facility] ([facility] [place] [address] MCV (RBC) [Entitic vol] 93.2 fL Normal 82.0-98.0 [facility] Comment on above: Performed By: #### L [id number] ####[facility] ([facility] [place] [address] PLATELETS (10*3/UL) IN BLOOD AUTOMATED COUNT 219 10*3/uL Normal 150-400 [facility] Comment on above: Performed By: #### L [id number] ####[facility] ([facility])[address] [place] [address] RBC (Bld) [#/Vol] 2.93 10*6/uL Low 4.20-5.70 [facility] Comment on above: Performed By: #### L [id number] ####[facility] ([facility])[address] [place] [address] WBC (Bld) [#/Vol] 6.80 10*3/uL Normal 4.00-10.60 [facility] Comment on above: Performed By: #### L [id number] ####[facility] ([facility])[address] [place] [address] MAGNESIUMon 04-30-2023 Magnesium [Mass/Vol] 1.7 mg/dL Low 1.9-2.7 [facility] Comment on above: Performed By: #### L [id number] ####[facility] ([facility])[address] [place] [address] PHOSPHORUSon 04-30-2023 Magnesium [Mass/Vol] 4.0 mg/dL Normal 2.5-5.0 [facility] Comment on above: Performed By: #### L [id number] ####[facility] ([facility])[address] [place] [address] POCT GLUCOSE METER UNSOLICIT ED RESULTSon 04-30-2023 Glucose [Mass/Vol] 123 mg/dL High 70-105 [facility] Comment on above: Order Comment: Waive d Testing in the ED is performed under the ED CLIA certificate #[id number]. Result Comment: [email or web address] [email or web address] Performed By: #### L [id number] ####[facility] ([facility])[address] [place] [address] Glucose [Mass/Vol] 138 mg/dL High 70-105 [facility] Comment on above: Order Comment: Waive d Testing in the ED is performed under the ED CLIA certificate #[id number]. Result Comment: [email or web address] Performed By: #### L [id number] ####[facility] ([facility])[address] [place] [address] 30on 04-29-2023 30 Normal [facility] 30 Normal [facility] 30 Normal [facility] BASIC METABOLIC PANELon 04-17 Anion gap [Moles/Vol] 11 mmol/L Normal 7-20 [facility] Comment on above: Performed By: #### L [id number] ####[facility] ([facility])[address] [place] [address] Calcium [Mass/Vol] 8.4 mg/dL Low 8.6-10.3 [facility] Comment on above: Performed By: #### L [id number] ####[facility] ([facility])[address] [place] [address] Chloride [Moles/Vol] 109 mmol/L High 98-107 [facility] Comment on above: Performed By: #### L [id number] ####[facility] ([facility])[address] [place] [address] CO2 [Moles/Vol] 20 mmol/L Low 21-31 [facility] Comment on above: Performed By: #### L [id number] ####[facility] ([facility])[address] [place] [address] Creatinine [Mass/Vol] 0.68 mg/dL Low 0.70-1.30 [facility] Comment on above: Performed By: #### L [id number] ####[facility] ([facility])[address] [place] [address] GLOMERULAR FILTRATION RATE ML/MIN/1.73 SQ M.PREDICTED 100.6 mL/min/1.73m*2 Normal >60.0 [facility] Comment on above: Result Comment: The [facility]???s estimated glomerular filtration rate (eGFR) will no [...] of individuals. Performed By: #### L [id number] ####[facility] ([facility])[address] [place] [address] Glucose [Mass/Vol] 100 mg/dL Normal 70-100 [facility] Comment on above: Performed By: #### L [id number] ####[facility] ([facility])[address] [place] [address] Potassium [Moles/Vol] 3.8 mmol/L Normal 3.5-5.1 [facility] Comment on above: Performed By: #### L [id number] ####[facility] ([facility])[address] [facility] [address] Sodium [Moles/Vol] 136 mmol/L Normal 136-145 [facility] Comment on above: Performed By: #### L [id number] ####[facility] ([facility])[address] [place] [address] Urea nitrogen [Mass/Vol] 18 mg/dL Normal 7-25 [facility] Comment on above: Performed By: #### L [id number] ####[facility] ([facility])[address] [facility] [address] UREA NITROGEN/CREATININ E (MASS RATIO) IN SER/PLAS 26.5 Normal [facility] Comment on above: Performed By: #### L [id number] ####[facility] ([facility])[address] [facility] [address] CBCon 04-29-2023 Erythrocyte distribution width (RBC) [Ratio] 13.6 % Normal 11.5-15.0 [facility] Comment on above: Performed By: #### L [id number] ####[facility] ([facility])[address] [place] [address] ERYTHROCYTE MEAN CORPUSCULAR HEMOGLOBIN CONCENTRATION (G/DL) BY AUTOMATED 33.7 g/dL Normal 32.0-35.0 [facility] Comment on above: Performed By: #### L [id number] ####[facility] ([facility])[address] [place] [address] Hematocrit (Bld) [Volume fraction] 27.0 % Low 39.0-55.0 [facility] Comment on above: Performed By: #### L [id number] ####[facility] ([facility])[address] [place] [address] Hemoglobin (Bld) [Mass/Vol] 9.1 g/dL Low 13.0-17.0 [facility] Comment on above: Performed By: #### L [id number] ####[facility] ([facility])[address] [place] [address] MCH (RBC) [Entitic mass] 30.4 pg Normal 27.0-33.0 [facility] Comment on above: Performed By: #### L [id number] ####[facility] ([facility])[address] [place] [address] MCV (RBC) [Entitic vol] 90.3 fL Normal 82.0-98.0 [facility] Comment on above: Performed By: #### L [id number] ####[facility] ([facility])[address] [place] [address] PLATELETS (10*3/UL) IN BLOOD AUTOMATED COUNT 188 10*3/uL Normal 150-400 [facility] Comment on above: Performed By: #### L [id number] ####[facility] ([facility])[address] [place] [address] RBC (Bld) [#/Vol] 2.99 10*6/uL Low 4.20-5.70 [facility] Comment on above: Performed By: #### L [id number] ####[facility] ([facility])[address] [place] [address] WBC (Bld) [#/Vol] 7.24 10*3/uL Normal 4.00-10.60 [facility] Comment on above: Performed By: #### L [id number] ####[facility] ([facility])[address] [place] [address] CONSULTon 04-29-2023 CONSULT Normal [facility] MAGNESIUMon 04-29-2023 Magnesium [Mass/Vol] 1.7 mg/dL Low 1.9-2.7 [facility] Comment on above: Performed By: #### L [id number] ####[facility] ([facility])[address] [place] [address] PHOSPHORUSon 04-29-2023 Magnesium [Mass/Vol] 3.9 mg/dL Normal 2.5-5.0 [facility] Comment on above: Performed By: #### L [id number] ####[facility] ([facility])[address] [place] [address] POCT GLUCOSE METER UNSOLICIT ED RESULTSon 04-29-2023 Glucose [Mass/Vol] 111 mg/dL High 70-105 [facility] Comment on above: Order Comment: Waive d Testing in the ED is performed under the ED CLIA certificate #[id number]. Result Comment: [email or web address] Performed By: #### L [id number] ####[facility] ([facility])[address] [place] [address] Glucose [Mass/Vol] 133 mg/dL High 70-105 [facility] Comment on above: Order Comment: Waive d Testing in the ED is performed under the ED CLIA certificate #[id number]. Result Comment: [email or web address] shea Performed By: #### L [id number] ####[facility] ([facility])[address] [place] [address] Glucose [Mass/Vol] 128 mg/dL High 70-105 [facility] Comment on above: Order Comment: Waive d Testing in the ED is performed under the ED CLIA certificate #[id number]. Result Comment: [email or web address] shea Performed By: #### L [id number] ####[facility] ([facility] [place] [address] 30on 04-28-2023 30 Normal [facility] BASIC METABOLIC PANELon 04-17 Anion gap [Moles/Vol] 10 mmol/L Normal 7-20 [facility] Comment on above: Performed By: #### L [id number] ####[facility] ([facility])[address] [place] [address] Calcium [Mass/Vol] 8.1 mg/dL Low 8.6-10.3 [facility] Comment on above: Performed By: #### L [id number] ####[facility] ([facility])[address] [place] [address] Chloride [Moles/Vol] 109 mmol/L High 98-107 [facility] Comment on above: Performed By: #### L [id number] ####[facility] ([facility])[address] [place] [address] CO2 [Moles/Vol] 22 mmol/L Normal 21-31 [facility] Comment on above: Performed By: #### L [id number] ####[facility] ([facility])[address] [place] [address] Creatinine [Mass/Vol] 0.62 mg/dL Low 0.70-1.30 [facility] Comment on above: Performed By: #### L [id number] ####[facility] ([facility])[address] [place] [address] GLOMERULAR FILTRATION RATE ML/MIN/1.73 SQ M.PREDICTED 103.5 mL/min/1.73m*2 Normal >60.0 [facility] Comment on above: Result Comment: The [facility]???s estimated glomerular filtration rate (eGFR) will no [...] of individuals. Performed By: #### L [id number] ####[facility] ([facility])[address] [place] [address] Glucose [Mass/Vol] 102 mg/dL High 70-100 [facility] Comment on above: Performed By: #### L [id number] ####[facility] ([facility])[address] [place] [address] Potassium [Moles/Vol] 3.4 mmol/L Low 3.5-5.1 [facility] Comment on above: Performed By: #### L [id number] ####[facility] ([facility])[address] [place] [address] Sodium [Moles/Vol] 138 mmol/L Normal 136-145 [facility] Comment on above: Performed By: #### L [id number] ####[facility] ([facility])[address] [facility] [address] Urea nitrogen [Mass/Vol] 22 mg/dL Normal 7-25 [facility] Comment on above: Performed By: #### L [id number] ####[facility] ([facility])[address] [place] [address] UREA NITROGEN/CREATININ E (MASS RATIO) IN SER/PLAS 35.5 Normal [facility] Comment on above: Performed By: #### L [id number] ####[facility] ([facility])[address] [facility] [address] CBC WITH AUTO DIFFERENTIALon 04-28-2023 Basophils (Bld) [#/Vol] 0.02 10*3/uL Normal 0.00-0.20 [facility] Comment on above: Performed By: #### L [id number] ####[facility] ([facility])[address] [place] [address] Basophils/100 WBC (Bld) 0.2 % Normal 0.0-1.0 [facility] Comment on above: Performed By: #### L [id number] ####[facility] ([facility])[address] [place] [address] Eosinophils (Bld) [#/Vol] 0.09 10*3/uL Normal 0.00-0.50 [facility] Comment on above: Performed By: #### L [id number] ####[facility] ([facility])[address] [place] [address] Eosinophils/100 WBC (Bld) 1.1 % Normal 0.0-6.0 [facility] Comment on above: Performed By: #### L [id number] ####[facility] ([facility])[address] [place] [address] Erythrocyte distribution width (RBC) [Ratio] 13.6 % Normal 11.5-15.0 [facility] Comment on above: Performed By: #### L [id number] ####[facility] ([facility])[address] [place] [address] ERYTHROCYTE MEAN CORPUSCULAR HEMOGLOBIN CONCENTRATION (G/DL) BY AUTOMATED 33.1 g/dL Normal 32.0-35.0 [facility] Comment on above: Performed By: #### L [id number] ####[facility] ([facility])[address] [place] [address] Hematocrit (Bld) [Volume fraction] 32.3 % Low 39.0-55.0 [facility] Comment on above: Performed By: #### L [id number] ####[facility] ([facility] [place] [address] Hemoglobin (Bld) [Mass/Vol] 10.7 g/dL Low 13.0-17.0 [facility] Comment on above: Performed By: #### L [id number] ####[facility] ([facility])[address] [place] [address] Immature granulocytes (Bld) [#/Vol] 0.06 10*3/uL Normal 0.00-0.20 [facility] Comment on above: Performed By: #### L [id number] ####[facility] ([facility])[address] [place] [address] Immature granulocytes/100 WBC (Bld) 0.7 % Normal 0.0-1.0 [facility] Comment on above: Performed By: #### L [id number] ####[facility] ([facility])[address] [place] [address] Lymphocytes (Bld) [#/Vol] 1.82 10*3/uL Normal 1.20-4.00 [facility] Comment on above: Performed By: #### L [id number] ####[facility] ([facility])[address] [place] [address] Lymphocytes/100 WBC (Bld) 22.2 % Normal 20.0-45.0 [facility] Comment on above: Performed By: #### L [id number] ####[facility] ([facility])[address] [place] [address] MCH (RBC) [Entitic mass] 30.3 pg Normal 27.0-33.0 [facility] Comment on above: Performed By: #### L [id number] ####[facility] ([facility])[address] [place] [address] MCV (RBC) [Entitic vol] 91.5 fL Normal 82.0-98.0 [facility] Comment on above: Performed By: #### L [id number] ####[facility] ([facility])[address] [place] [address] Monocytes (Bld) [#/Vol] 0.67 10*3/uL Normal 0.10-1.00 [facility] Comment on above: Performed By: #### L [id number] ####[facility] ([facility])[address] [place] [address] Monocytes/100 WBC (Bld) 8.2 % Normal 5.0-12.0 [facility] Comment on above: Performed By: #### L [id number] ####[facility] ([facility])[address] [place] [address] Neutrophils (Bld) [#/Vol] 5.55 10*3/uL Normal 1.60-7.60 [facility] Comment on above: Performed By: #### L [id number] ####[facility] ([facility])[address] [address] Neutrophils/100 WBC (Bld) 67.6 % Normal 40.0-72.0 [facility] Comment on above: Performed By: #### L [id number] ####[facility] ([facility] [address] NRBC (PER 100 WBCS) BY AUTOMATED COUNT 0.0 % Normal 0 [facility] Comment on above: Performed By: #### L [id number] ####[facility] ([facility] [address] PLATELETS (10*3/UL) IN BLOOD AUTOMATED COUNT 160 10*3/uL Normal 150-400 [facility] Comment on above: Performed By: #### L [id number] ####[facility] ([facility])[address] [address] RBC (Bld) [#/Vol] 3.53 10*6/uL Low 4.20-5.70 [facility] Comment on above: Performed By: #### L [id number] ####[facility] ([facility])[address] [address] WBC (Bld) [#/Vol] 8.21 10*3/uL Normal 4.00-10.60 [facility] Comment on above: Performed By: #### L [id number] ####[facility] ([facility])[address], [place] [address] MAGNESIUMon 04-28-2023 Magnesium [Mass/Vol] 1.7 mg/dL Low 1.9-2.7 [facility] Comment on above: Performed By: #### L [id number] ####[facility] ([facility])[address], [place] [address] PHOSPHORUSon 04-28-2023 Magnesium [Mass/Vol] 3.9 mg/dL Normal 2.5-5.0 [facility] Comment on above: Performed By: #### L [id number] ####[facility] ([facility])[address] [facility] [address] POCT GLUCOSE METER UNSOLICIT ED RESULTSon 04-28-2023 Glucose [Mass/Vol] 111 mg/dL High 70-105 [facility] Comment on above: Order Comment: Waive d Testing in the ED is performed under the ED CLIA certificate #[id number]. Result Comment: [email or web address] Performed By: #### L [id number] ####[facility] ([facility])[address] [place] [address] Glucose [Mass/Vol] 86 mg/dL Normal 70-105 [facility] Comment on above: Order Comment: Waive d Testing in the ED is performed under the ED CLIA certificate #[id number]. Result Comment: [email or web address] Performed By: #### L [id number] ####[facility] ([facility])[address] [place] [address] Glucose [Mass/Vol] 159 mg/dL High 70-105 [facility] Comment on above: Order Comment: Waive d Testing in the ED is performed under the ED CLIA certificate #[id number]. Result Comment: [email or web address] Performed By: #### L [id number] ####[facility] ([facility])[address] [place] [address] Glucose [Mass/Vol] 109 mg/dL High 70-105 [facility] Comment on above: Order Comment: Waive d Testing in the ED is performed under the ED CLIA certificate #[id number]. Result Comment: [email or web address] Performed By: #### L [id number] ####[facility] ([facility])[address] [place] [address] BASIC METABOLIC PANELon 04-17 Anion gap [Moles/Vol] 11 mmol/L Normal 7-20 [facility] Comment on above: Performed By: #### L [id number] ####[facility] ([facility])[address] [place] [address] Calcium [Mass/Vol] 8.2 mg/dL Low 8.6-10.3 [facility] Comment on above: Performed By: #### L [id number] ####[facility] ([facility])[address] [place] [address] Chloride [Moles/Vol] 112 mmol/L High 98-107 [facility] Comment on above: Performed By: #### L [id number] ####[facility] ([facility])[address] [place] [address] CO2 [Moles/Vol] 23 mmol/L Normal 21-31 [facility] Comment on above: Performed By: #### L [id number] ####[facility] ([facility])[address] [place] [address] Creatinine [Mass/Vol] 0.64 mg/dL Low 0.70-1.30 [facility] Comment on above: Performed By: #### L [id number] ####[facility] ([facility] [place] [address] GLOMERULAR FILTRATION RATE ML/MIN/1.73 SQ M.PREDICTED 102.5 mL/min/1.73m*2 Normal >60.0 [facility] Comment on above: Result Comment: The [facility]???s estimated glomerular filtration rate (eGFR) will no [...] of individuals. Performed By: #### L [id number] ####[facility] ([facility])[address] [place] [address] Glucose [Mass/Vol] 116 mg/dL High 70-100 [facility] Comment on above: Performed By: #### L [id number] ####[facility] ([facility])[address] [place] [address] Potassium [Moles/Vol] 3.9 mmol/L Normal 3.5-5.1 [facility] Comment on above: Performed By: #### L [id number] ####[facility] ([facility])[address] [place] [address] Sodium [Moles/Vol] 142 mmol/L Normal 136-145 [facility] Comment on above: Performed By: #### L [id number] ####[facility] ([facility])[address] [place] [address] Urea nitrogen [Mass/Vol] 22 mg/dL Normal 7-25 [facility] Comment on above: Performed By: #### L [id number] ####[facility] ([facility])[address] [place] [address] UREA NITROGEN/CREATININ E (MASS RATIO) IN SER/PLAS 34.4 Normal [facility] Comment on above: Performed By: #### L [id number] ####[facility] ([facility])[address] [place] [address] CBC WITH AUTO DIFFERENTIALon 04-27-2023 Basophils (Bld) [#/Vol] 0.02 10*3/uL Normal 0.00-0.20 [facility] Comment on above: Performed By: #### L [id number] ####[facility] ([facility])[address] [place] [address] Basophils/100 WBC (Bld) 0.2 % Normal 0.0-1.0 [facility] Comment on above: Performed By: #### L [id number] ####[facility] ([facility])[address] [place] [address] Eosinophils (Bld) [#/Vol] 0.05 10*3/uL Normal 0.00-0.50 [facility] Comment on above: Performed By: #### L [id number] ####[facility] ([facility])[address] [place] [address] Eosinophils/100 WBC (Bld) 0.5 % Normal 0.0-6.0 [facility] Comment on above: Performed By: #### L [id number] ####[facility] ([facility])[address] [place] [address] Erythrocyte distribution width (RBC) [Ratio] 13.6 % Normal 11.5-15.0 [facility] Comment on above: Performed By: #### L [id number] ####[facility] ([facility])[address] [place] [address] ERYTHROCYTE MEAN CORPUSCULAR HEMOGLOBIN CONCENTRATION (G/DL) BY AUTOMATED 33.7 g/dL Normal 32.0-35.0 [facility] Comment on above: Performed By: #### L [id number] ####[facility] ([facility])[address] [address] Hematocrit (Bld) [Volume fraction] 26.4 % Low 39.0-55.0 [facility] Comment on above: Performed By: #### L [id number] ####[facility] ([facility])[address] [address] Hemoglobin (Bld) [Mass/Vol] 8.9 g/dL Low 13.0-17.0 [facility] Comment on above: Performed By: #### L [id number] ####[facility] ([facility])[address] [place] [address] Immature granulocytes (Bld) [#/Vol] 0.07 10*3/uL Normal 0.00-0.20 [facility] Comment on above: Performed By: #### L [id number] ####[facility] ([facility])[address] [place] [address] Immature granulocytes/100 WBC (Bld) 0.8 % Normal 0.0-1.0 [facility] Comment on above: Performed By: #### L [id number] ####[facility] ([facility])[address] [place] [address] Lymphocytes (Bld) [#/Vol] 1.24 10*3/uL Normal 1.20-4.00 [facility] Comment on above: Performed By: #### L [id number] ####[facility] ([facility])[address] [place] [address] Lymphocytes/100 WBC (Bld) 13.3 % Low 20.0-45.0 [facility] Comment on above: Performed By: #### L [id number] ####[facility] ([facility])[address] [place] [address] MCH (RBC) [Entitic mass] 30.5 pg Normal 27.0-33.0 [facility] Comment on above: Performed By: #### L [id number] ####[facility] ([facility])[address] [place] [address] MCV (RBC) [Entitic vol] 90.4 fL Normal 82.0-98.0 [facility] Comment on above: Performed By: #### L [id number] ####[facility] ([facility])[address] [place] [address] Monocytes (Bld) [#/Vol] 0.72 10*3/uL Normal 0.10-1.00 [facility] Comment on above: Performed By: #### L [id number] ####[facility] ([facility])[address] [place] [address] Monocytes/100 WBC (Bld) 7.7 % Normal 5.0-12.0 [facility] Comment on above: Performed By: #### L [id number] ####[facility] ([facility])[address] [place] [address] Neutrophils (Bld) [#/Vol] 7.22 10*3/uL Normal 1.60-7.60 [facility] Comment on above: Performed By: #### L [id number] ####[facility] ([facility])[address] [place] [address] Neutrophils/100 WBC (Bld) 77.5 % High 40.0-72.0 [facility] Comment on above: Performed By: #### L [id number] ####[facility] ([facility])[address] [address] NRBC (PER 100 WBCS) BY AUTOMATED COUNT 0.0 % Normal 0 [facility] Comment on above: Performed By: #### L [id number] ####[facility] ([facility])[address] [address] PLATELETS (10*3/UL) IN BLOOD AUTOMATED COUNT 100 10*3/uL Low 150-400 [facility] Comment on above: Performed By: #### L [id number] ####[facility] ([facility])[address] [place] [address] RBC (Bld) [#/Vol] 2.92 10*6/uL Low 4.20-5.70 [facility] Comment on above: Performed By: #### L [id number] ####[facility] ([facility])[address], [place] [address] WBC (Bld) [#/Vol] 9.32 10*3/uL Normal 4.00-10.60 [facility] Comment on above: Performed By: #### L [id number] ####[facility] ([facility])[address] [place] [address] MAGNESIUMon 04-27-2023 Magnesium [Mass/Vol] 1.9 mg/dL Normal 1.9-2.7 [facility] Comment on above: Performed By: #### L [id number] ####[facility] ([facility])[address] [place] [address] PHOSPHORUSon 04-27-2023 Magnesium [Mass/Vol] 3.5 mg/dL Normal 2.5-5.0 [facility] Comment on above: Performed By: #### L [id number] ####[facility] ([facility])[address] [place] [address] POCT GLUCOSE METER UNSOLICIT ED RESULTSon 04-27-2023 Glucose [Mass/Vol] 100 mg/dL Normal 70-105 [facility] Comment on above: Order Comment: Waive d Testing in the ED is performed under the ED CLIA certificate #[id number]. Result Comment: [email or web address] Performed By: #### L [id number] ####[facility] ([facility])[address] [place] [address] Glucose [Mass/Vol] 165 mg/dL High 70-105 [facility] Comment on above: Order Comment: Waive d Testing in the ED is performed under the ED CLIA certificate #[id number]. Result Comment: [email or web address] Performed By: #### L [id number] ####[facility] ([facility])[address] [place] [address] Glucose [Mass/Vol] 157 mg/dL High 70-105 [facility] Comment on above: Order Comment: Waive d Testing in the ED is performed under the ED CLIA certificate #[id number]. Result Comment: [email or web address] Performed By: #### L [id number] ####[facility] ([facility])[address] [place] [address] Glucose [Mass/Vol] 112 mg/dL High 70-105 [facility] Comment on above: Order Comment: Waive d Testing in the ED is performed under the ED CLIA certificate #[id number]. Result Comment: [email or web address] Performed By: #### L [id number] ####[facility] ([facility])[address] [place] [address] PROTIME-INRon 04-27-2023 INR IN PPP BY COAGULATION ASSAY 1.21 High 0.90-1.10 [facility] Comment on above: Result Comment: ACCC P RECOMMENDED INR FOR WARFARIN THERAPY CONDITION INRPROPHYLAXIS OF VENOUS THROMBOSIS 2-3(HIGH-RISK SURGERY)TREATMENT OF VENOUS THROMBOSIS 2-3TREATMENT OF PULMONARY EMBOLISM 2-3PREVENTION OF SYSTEMIC EMBOLISM: 2-3 ACUTE MYOCARDIAL INFARCTION TISSUE HEART VALVES VALVULAR HEART DISEASE ATRIAL FIBRILLATION RECURRENT SYSTEMIC EMBOLISMMECHANICAL HEART VALVE 2.5-3.5 FROM: ORAL ANTICOAGULANTS. MECHANISM OF ACTION, CLINICAL EFFECTIVENESS, AND OPTIMAL THERAPEUTIC RANGE. CHEST 1995;108:231S-246S. Performed By: #### L [id number] ####[facility] ([facility])[address] [place] [address] PROTHROMBIN TIME (PT) IN PPP BY COAGULATION ASSAY 15.3 Seconds High 12.3-14.8 [facility] Comment on above: Performed By: #### L [id number] ####[facility] ([facility])[address] [facility] [address] 30on 04-26-2023 30 Normal [facility] 30 Normal [facility] 30 Normal [facility] 30 Normal [facility] BASIC METABOLIC PANELon 11- Anion gap [Moles/Vol] 10 mmol/L Normal 7-20 [facility] Comment on above: Performed By: #### L [id number] ####[facility] ([facility])[address] [place] [address] Calcium [Mass/Vol] 8.5 mg/dL Low 8.6-10.3 [facility] Comment on above: Performed By: #### L [id number] ####[facility] ([facility])[address] [facility] [address] Chloride [Moles/Vol] 109 mmol/L High 98-107 [facility] Comment on above: Performed By: #### L [id number] ####[facility] ([facility])[address] [place] [address] CO2 [Moles/Vol] 25 mmol/L Normal 21-31 [facility] Comment on above: Performed By: #### L [id number] ####[facility] ([facility])[address] [place] [address] Creatinine [Mass/Vol] 0.62 mg/dL Low 0.70-1.30 [facility] Comment on above: Performed By: #### L [id number] ####[facility] ([facility])[address] [place] [address] GLOMERULAR FILTRATION RATE ML/MIN/1.73 SQ M.PREDICTED 103.5 mL/min/1.73m*2 Normal >60.0 [facility] Comment on above: Result Comment: The [facility]???s estimated glomerular filtration rate (eGFR) will no [...] of individuals. Performed By: #### L [id number] ####[facility] ([facility])[address] [place] [address] Glucose [Mass/Vol] 136 mg/dL High 70-100 [facility] Comment on above: Performed By: #### L [id number] ####[facility] ([facility])[address] [place] [address] Potassium [Moles/Vol] 3.6 mmol/L Normal 3.5-5.1 [facility] Comment on above: Performed By: #### L [id number] ####[facility] ([facility])[address] [place] [address] Sodium [Moles/Vol] 140 mmol/L Normal 136-145 [facility] Comment on above: Performed By: #### L [id number] ####[facility] ([facility])[address] [place] [address] Urea nitrogen [Mass/Vol] 18 mg/dL Normal 7-25 [facility] Comment on above: Performed By: #### L [id number] ####[facility] ([facility])[address] [place] [address] UREA NITROGEN/CREATININ E (MASS RATIO) IN SER/PLAS 29.0 Normal [facility] Comment on above: Performed By: #### L [id number] ####[facility] ([facility])[address] [place] [address] Anion gap [Moles/Vol] 9 mmol/L Normal 7-20 [facility] Comment on above: Performed By: #### L [id number] ####[facility] ([facility])[address] [place] [address] Calcium [Mass/Vol] 7.8 mg/dL Low 8.6-10.3 [facility] Comment on above: Performed By: #### L [id number] ####[facility] ([facility])[address] [place] [address] Chloride [Moles/Vol] 112 mmol/L High 98-107 [facility] Comment on above: Performed By: #### L [id number] ####[facility] ([facility])[address] [place] [address] CO2 [Moles/Vol] 23 mmol/L Normal 21-31 [facility] Comment on above: Performed By: #### L [id number] ####[facility] ([facility])[address] [place] [address] Creatinine [Mass/Vol] 0.61 mg/dL Low 0.70-1.30 [facility] Comment on above: Performed By: #### L [id number] ####[facility] ([facility])[address] [place] [address] GLOMERULAR FILTRATION RATE ML/MIN/1.73 SQ M.PREDICTED 104.0 mL/min/1.73m*2 Normal >60.0 [facility] Comment on above: Result Comment: The [facility]???s estimated glomerular filtration rate (eGFR) will no [...] of individuals. Performed By: #### L [id number] ####[facility] ([facility])[address] [place] [address] Glucose [Mass/Vol] 112 mg/dL High 70-100 [facility] Comment on above: Performed By: #### L [id number] ####[facility] ([facility])[address] [place] [address] Potassium [Moles/Vol] 3.4 mmol/L Low 3.5-5.1 [facility] Comment on above: Performed By: #### L [id number] ####[facility] ([facility])[address] [place] [address] Sodium [Moles/Vol] 141 mmol/L Normal 136-145 [facility] Comment on above: Performed By: #### L [id number] ####[facility] [place] [address] Urea nitrogen [Mass/Vol] 14 mg/dL Normal 7-25 [facility] Comment on above: Performed By: #### L [id number] ####[facility] [place] [address] UREA NITROGEN/CREATININ E (MASS RATIO) IN SER/PLAS 23.0 Normal [facility] Comment on above: Performed By: #### L [id number] ####[facility] [place] [address] CBCon 04-26-2023 Erythrocyte distribution width (RBC) [Ratio] 13.9 % Normal 11.5-15.0 [facility] Comment on above: Performed By: #### L [id number] ####[facility] [place] [address] ERYTHROCYTE MEAN CORPUSCULAR HEMOGLOBIN CONCENTRATION (G/DL) BY AUTOMATED 33.7 g/dL Normal 32.0-35.0 [facility] Comment on above: Performed By: #### L [id number] ####[facility] ([facility])[address] [place] [address] Hematocrit (Bld) [Volume fraction] 24.3 % Low 39.0-55.0 [facility] Comment on above: Performed By: #### L [id number] ####[facility] ([facility])[address] [place] [address] Hemoglobin (Bld) [Mass/Vol] 8.2 g/dL Low 13.0-17.0 [facility] Comment on above: Performed By: #### L [id number] ####[facility] ([facility])[address] [place] [address] IMMATURE PLATELET FRACTION % 4.3 % Normal 0.8-6.3 [facility] Comment on above: Performed By: #### L [id number] ####[facility] ([facility])[address] [place] [address] MCH (RBC) [Entitic mass] 30.4 pg Normal 27.0-33.0 [facility] Comment on above: Performed By: #### L [id number] ####[facility] [place] [address] MCV (RBC) [Entitic vol] 90.0 fL Normal 82.0-98.0 [facility] Comment on above: Performed By: #### L [id number] ####[facility] ([facility])[address] [place] [address] PLATELETS (10*3/UL) IN BLOOD AUTOMATED COUNT 71 10*3/uL Low 150-400 [facility] Comment on above: Performed By: #### L [id number] ####[facility] [place] [address] RBC (Bld) [#/Vol] 2.70 10*6/uL Low 4.20-5.70 [facility] Comment on above: Performed By: #### L [id number] ####[facility] ([facility])[address] [place] [address] WBC (Bld) [#/Vol] 7.74 10*3/uL Normal 4.00-10.60 [facility] Comment on above: Performed By: #### L [id number] ####[facility] ([facility])[address] [place] [address] CO-OXIMETRYon 04-26-2023 CARBOXYHEMOGLOBIN/ HEMOGLOBIN TOTAL % IN BLOOD 1.4 % Normal [facility] Comment on above: Performed By: #### L [id number] ####[facility] [id number] [facility] [address] [place] Hemoglobin (Bld) [Mass/Vol] 8.5 g/dL Normal [facility] Comment on above: Performed By: #### L [id number] ####[facility] [id number] [place] [address] [place] METHEMOGLOBIN/100 IN BLOOD 0.3 % Normal 0.0-1.5 [facility] Comment on above: Performed By: #### L [id number] ####[facility] [id number] [place] [address] [place] Oxygen saturation in Blood 57.1 % Normal [facility] Comment on above: Performed By: #### L [id number] ####[facility] [id number] [facility] [address] [place] OXYGENATED HEMOGLOBIN IN BLOOD 56.1 % Normal [facility] Comment on above: Performed By: #### L [id number] ####[facility] [id number] [facility] [address] [place] IRON AND TIBCon 04-26-2023 IRON (UG/DL) IN SER/PLAS 16 ug/dL Low 50-212 [facility] Comment on above: Performed By: #### L [id number] ####[facility] (BEAKER)[address] [place] [address] IRON BINDING CAPACITY (UG/DL) IN SER/PLAS 143 ug/dL Low 250-450 [facility] Comment on above: Performed By: #### L [id number] ####[facility] ([facility] [place] [address] IRON BINDING CAPACITY.UNSATURAT ED (UG/DL) IN SER/PLAS 127.0 ug/dL Low 155.0-355.0 [facility] Comment on above: Performed By: #### L [id number] ####[facility] ([facility] [place] [address] IRON SATURATION (%) IN SER/PLAS 11 % Low 20-50 [facility] Comment on above: Performed By: #### L [id number] ####[facility] ([facility] [place] [address] LACTIC ACID, PLASMAon 2022 LACTATE (MMOL/L) IN SER/PLAS 0.6 mmol/L Normal 0.5-2.2 [facility] Comment on above: Performed By: #### L [id number] ####[facility] (BEAKER)[address] [place] [address] MAGNESIUMon 04-26-2023 Magnesium [Mass/Vol] 1.6 mg/dL Low 1.9-2.7 [facility] Comment on above: Performed By: #### L [id number] ####[facility] ([facility]ER)[address] [place] [address] Magnesium [Mass/Vol] 1.7 mg/dL Low 1.9-2.7 [facility] Comment on above: Performed By: #### L [id number] ####[facility] ([facility]ER)[address] [place] [address] PHOSPHORUSon 04-26-2023 Magnesium [Mass/Vol] 3.4 mg/dL Normal 2.5-5.0 [facility] Comment on above: Performed By: #### L [id number] ####[facility] ([facility])[address] [place] [address] Magnesium [Mass/Vol] 3.7 mg/dL Normal 2.5-5.0 [facility] Comment on above: Performed By: #### L [id number] ####[facility] ([facility])[address] [place] [address] POCT GLUCOSE METER UNSOLICIT ED RESULTSon 04-26-2023 Glucose [Mass/Vol] 134 mg/dL High 70-105 [facility] Comment on above: Order Comment: Waive d Testing in the ED is performed under the ED CLIA certificate #[id number]. Result Comment: [email or web address] Performed By: #### L [id number] ####[facility] ([facility])[address] [place] [address] Glucose [Mass/Vol] 129 mg/dL High 70-105 [facility] Comment on above: Order Comment: Waive d Testing in the ED is performed under the ED CLIA certificate #[id number]. Result Comment: [email or web address] [email or web address] Performed By: #### L [id number] ####[facility] ([facility])[address] [place] [address] Glucose [Mass/Vol] 121 mg/dL High 70-105 [facility] Comment on above: Order Comment: Waive d Testing in the ED is performed under the ED CLIA certificate #[id number]. Result Comment: than sen2 Performed By: #### L [id number] ####[facility] ([facility])[address] [place] [address] Glucose [Mass/Vol] 113 mg/dL High 70-105 [facility] Comment on above: Order Comment: Waive d Testing in the ED is performed under the ED CLIA certificate #[id number]. Result Comment: than sen2 Performed By: #### L [id number] ####[facility] ([facility])[address] [place] [address] PREALBUMINon 04-26-2023 Prealbumin [Mass/Vol] 6.4 mg/dL Normal [facility] Comment on above: Performed By: #### L [id number] ####[facility] ([facility])[address] [place] [address] TRANSFERRINon 04-26-2023 Magnesium [Mass/Vol] 82 mg/dL Low 168-348 [facility] Comment on above: Performed By: #### L [id number] ####[facility] ([facility])[address] [place] [address] 30on 04-25-2023 30 Normal [facility] AMMONIAon 04-25-2023 AMMONIA (UMOL/L) IN PLASMA 39 umol/L Normal 18-72 [facility] Comment on above: Performed By: #### L [id number] ####[facility] ([facility])[address] [place] [address] APTTon 04-25-2023 ACTIVATED PARTIAL THROMBOPLASTIN TIME IN PPP BY COAGULATION ASSAY 37.2 Seconds High 25.0-35.0 [facility] Comment on above: Result Comment: Clin ical significance of the APTT is questionable in the presence of heparin. Performed By: #### L [id number] ####[facility] ([facility])[address] [place] [address] BASIC METABOLIC PANELon 11 Anion gap [Moles/Vol] 9 mmol/L Normal 7-20 [facility] Comment on above: Performed By: #### L [id number] ####[facility] ([facility])[address] [place] [address] Calcium [Mass/Vol] 8.2 mg/dL Low 8.6-10.3 [facility] Comment on above: Performed By: #### L [id number] ####[facility] ([facility])[address] [place] [address] Chloride [Moles/Vol] 111 mmol/L High 98-107 [facility] Comment on above: Performed By: #### L [id number] ####[facility] ([facility])[address] [place] [address] CO2 [Moles/Vol] 24 mmol/L Normal 21-31 [facility] Comment on above: Performed By: #### L [id number] ####[facility] ([facility])[address] [place] [address] Creatinine [Mass/Vol] 0.71 mg/dL Normal 0.70-1.30 [facility] Comment on above: Performed By: #### L [id number] ####[facility] ([facility])[address] [place] [address] GLOMERULAR FILTRATION RATE ML/MIN/1.73 SQ M.PREDICTED 99.3 mL/min/1.73m*2 Normal >60.0 [facility] Comment on above: Result Comment: The [facility]???s estimated glomerular filtration rate (eGFR) will no [...] of individuals. Performed By: #### L [id number] ####[facility] ([facility])[address] [place] [address] Glucose [Mass/Vol] 124 mg/dL High 70-100 [facility] Comment on above: Performed By: #### L [id number] ####[facility] ([facility])[address] [place] [address] Potassium [Moles/Vol] 3.9 mmol/L Normal 3.5-5.1 [facility] Comment on above: Performed By: #### L [id number] ####[facility] ([facility] [place] [address] Sodium [Moles/Vol] 140 mmol/L Normal 136-145 [facility] Comment on above: Performed By: #### L [id number] ####[facility] (BEAKER)[address] [place] [address] Urea nitrogen [Mass/Vol] 17 mg/dL Normal 7-25 [facility] Comment on above: Performed By: #### L [id number] ####[facility] ([facility] [place] [address] UREA NITROGEN/CREATININ E (MASS RATIO) IN SER/PLAS 23.9 Normal [facility] Comment on above: Performed By: #### L [id number] ####[facility] ([facility])[address] [place] [address] CBCon 04-25-2023 Erythrocyte distribution width (RBC) [Ratio] 14.0 % Normal 11.5-15.0 [facility] Comment on above: Performed By: #### L [id number] ####[facility] ([facility])[address] [place] [address] ERYTHROCYTE MEAN CORPUSCULAR HEMOGLOBIN CONCENTRATION (G/DL) BY AUTOMATED 34.1 g/dL Normal 32.0-35.0 [facility] Comment on above: Performed By: #### L [id number] ####[facility] ([facility])[address], [place] [address] Hematocrit (Bld) [Volume fraction] 24.9 % Low 39.0-55.0 [facility] Comment on above: Performed By: #### L [id number] ####[facility] ([facility], [place] [address] Hemoglobin (Bld) [Mass/Vol] 8.5 g/dL Low 13.0-17.0 [facility] Comment on above: Performed By: #### L [id number] ####[facility] ([facility], [place] [address] IMMATURE PLATELET FRACTION % 5.1 % Normal 0.8-6.3 [facility] Comment on above: Performed By: #### L [id number] ####[facility] ([facility] [place] [address] MCH (RBC) [Entitic mass] 30.7 pg Normal 27.0-33.0 [facility] Comment on above: Performed By: #### L [id number] ####[facility] (BE[facility]ER)[address] [place] [address] MCV (RBC) [Entitic vol] 89.9 fL Normal 82.0-98.0 [facility] Comment on above: Performed By: #### L [id number] ####[facility] ([facility])[address] [place] [address] PLATELETS (10*3/UL) IN BLOOD AUTOMATED COUNT 55 10*3/uL Low 150-400 [facility] Comment on above: Performed By: #### L [id number] ####[facility] ([facility] [place] [address] RBC (Bld) [#/Vol] 2.77 10*6/uL Low 4.20-5.70 [facility] Comment on above: Performed By: #### L [id number] ####[facility] ([facility] [place] [address] WBC (Bld) [#/Vol] 9.29 10*3/uL Normal 4.00-10.60 [facility] Comment on above: Performed By: #### L [id number] ####[facility] (BEAKER)[address] [place] [address] Erythrocyte distribution width (RBC) [Ratio] 14.6 % Normal 11.5-15.0 [facility] Comment on above: Performed By: #### L [id number] ####[facility] (BEAKER)[address] [place] [address] ERYTHROCYTE MEAN CORPUSCULAR HEMOGLOBIN CONCENTRATION (G/DL) BY AUTOMATED 34.1 g/dL Normal 32.0-35.0 [facility] Comment on above: Performed By: #### L [id number] ####[facility] (BEAKER)[address] [place] [address] Hematocrit (Bld) [Volume fraction] 25.5 % Low 39.0-55.0 [facility] Comment on above: Performed By: #### L [id number] ####[facility] ([facility])[address] [place] [address] Hemoglobin (Bld) [Mass/Vol] 8.7 g/dL Low 13.0-17.0 [facility] Comment on above: Performed By: #### L [id number] ####[facility] ([facility])[address] [place] [address] IMMATURE PLATELET FRACTION % 5.5 % Normal 0.8-6.3 [facility] Comment on above: Performed By: #### L [id number] ####[facility] ([facility])[address] [place] [address] MCH (RBC) [Entitic mass] 31.0 pg Normal 27.0-33.0 [facility] Comment on above: Performed By: #### L [id number] ####[facility] ([facility])[address] [place] [address] MCV (RBC) [Entitic vol] 90.7 fL Normal 82.0-98.0 [facility] Comment on above: Performed By: #### L [id number] ####[facility] ([facility])[address] [place] [address] PLATELETS (10*3/UL) IN BLOOD AUTOMATED COUNT 56 10*3/uL Low 150-400 [facility] Comment on above: Result Comment: P=69 , 1D Performed By: #### L [id number] ####[facility] ([facility])[address] [place] [address] RBC (Bld) [#/Vol] 2.81 10*6/uL Low 4.20-5.70 [facility] Comment on above: Performed By: #### L [id number] ####[facility] ([facility] [place] [address] WBC (Bld) [#/Vol] 10.33 10*3/uL Normal 4.00-10.60 [facility] Comment on above: Performed By: #### L [id number] ####[facility] ([facility]ER)[address] [place] [address] CO-OXIMETRYon 04-25-2023 CARBOXYHEMOGLOBIN/ HEMOGLOBIN TOTAL % IN BLOOD 0.8 % Normal [facility] Comment on above: Performed By: #### L [id number] ####[facility] [id number] [place] [address] [facility] Hemoglobin (Bld) [Mass/Vol] 7.8 g/dL Normal [facility] Comment on above: Performed By: #### L [id number] ####[facility] [id number] [place] [address] [place] METHEMOGLOBIN/100 IN BLOOD 1.1 % Normal 0.0-1.5 [facility] Comment on above: Performed By: #### L [id number] ####[facility] [id number] [place] [address] [place] Oxygen saturation in Blood 70.2 % Normal [facility] Comment on above: Performed By: #### L [id number] ####[facility] [id number] [place] [address] [place] OXYGENATED HEMOGLOBIN IN BLOOD 68.8 % Normal [facility] Comment on above: Performed By: #### L [id number] ####[facility] [id number] [place] [address] [facility] HEPATIC FUNCTION PANELon Albumin [Mass/Vol] 3.3 g/dL Low 3.5-5.7 [facility] Comment on above: Performed By: #### L [id number] ####[facility] (BEAKER)[address] [place] [address] ALP [Catalytic activity/Vol] 49 U/L Normal 34-104 [facility] Comment on above: Performed By: #### L [id number] ####[facility] ([facility]ER)[address] [place] [address] ALT [Catalytic activity/Vol] 60 U/L High 7-52 [facility] Comment on above: Performed By: #### L [id number] ####[facility] ([facility])[address] [place] [address] AST [Catalytic activity/Vol] 127 U/L High 13-39 [facility] Comment on above: Performed By: #### L [id number] ####[facility] ([facility])[address] [place] [address] Bilirubin [Mass/Vol] 0.5 mg/dL Normal 0.3-1.0 [facility] Comment on above: Performed By: #### L [id number] ####[facility] ([facility])[address] [place] [address] Magnesium [Mass/Vol] 0.2 mg/dL Normal 0-0.2 [facility] Comment on above: Performed By: #### L [id number] ####[facility] ([facility])[address] [place] [address] Protein [Mass/Vol] 4.8 g/dL Low 6.0-8.3 [facility] Comment on above: Performed By: #### L [id number] ####[facility] ([facility])[address] [place] [address] LACTIC ACID WITH 4 HOUR REFL EXon 04-25-2023 LACTATE (MMOL/L) IN SER/PLAS 1.4 mmol/L Normal 0.5-2.2 [facility] Comment on above: Performed By: #### L [id number] ####[facility] ([facility])[address] [place] [address] MAGNESIUMon 04-25-2023 Magnesium [Mass/Vol] 1.7 mg/dL Low 1.9-2.7 [facility] Comment on above: Performed By: #### L [id number] ####[facility] ([facility])[address] [place] [address] NURSNOTEon 04-25-2023 NURSNOTE Normal [facility] NURSNOTE Normal [facility] PHOSPHORUSon 04-25-2023 Magnesium [Mass/Vol] 2.3 mg/dL Low 2.5-5.0 [facility] Comment on above: Performed By: #### L [id number] ####[facility] (gripNote)[address] [place] [address] POCT GLUCOSE METER UNSOLICIT ED RESULTSon 04-25-2023 Glucose [Mass/Vol] 106 mg/dL High 70-105 [facility] Comment on above: Order Comment: Waive d Testing in the ED is performed under the ED CLIA certificate #[id number]. Result Comment: [email or web address] Performed By: #### L [id number] ####[facility] (gripNote)[address] [facility] [place] [address] Glucose [Mass/Vol] 128 mg/dL High 70-105 [facility] Comment on above: Order Comment: Waive d Testing in the ED is performed under the ED CLIA certificate #[id number]. Result Comment: [email or web address] Performed By: #### L [id number] ####[facility] (gripNote)[address] [place] [address] PROTIME-INRon 04-25-2023 INR IN PPP BY COAGULATION ASSAY 1.34 High 0.90-1.10 [facility] Comment on above: Result Comment: ACCC P RECOMMENDED INR FOR WARFARIN THERAPY CONDITION INRPROPHYLAXIS OF VENOUS THROMBOSIS 2-3(HIGH-RISK SURGERY)TREATMENT OF VENOUS THROMBOSIS 2-3TREATMENT OF PULMONARY EMBOLISM 2-3PREVENTION OF SYSTEMIC EMBOLISM: 2-3 ACUTE MYOCARDIAL INFARCTION TISSUE HEART VALVES VALVULAR HEART DISEASE ATRIAL FIBRILLATION RECURRENT SYSTEMIC EMBOLISMMECHANICAL HEART VALVE 2.5-3.5 FROM: ORAL ANTICOAGULANTS. MECHANISM OF ACTION, CLINICAL EFFECTIVENESS, AND OPTIMAL THERAPEUTIC RANGE. CHEST 1995;108:231S-246S. Performed By: #### L [id number] ####[facility] (gripNote)[address] [place] [address] PROTHROMBIN TIME (PT) IN PPP BY COAGULATION ASSAY 16.6 Seconds High 12.3-14.8 [facility] Comment on above: Performed By: #### L [id number] ####[facility] ([facility])[address] [place] [address] INR IN PPP BY COAGULATION ASSAY 1.39 High 0.90-1.10 [facility] Comment on above: Result Comment: ACCC P RECOMMENDED INR FOR WARFARIN THERAPY CONDITION INRPROPHYLAXIS OF VENOUS THROMBOSIS 2-3(HIGH-RISK SURGERY)TREATMENT OF VENOUS THROMBOSIS 2-3TREATMENT OF PULMONARY EMBOLISM 2-3PREVENTION OF SYSTEMIC EMBOLISM: 2-3 ACUTE MYOCARDIAL INFARCTION TISSUE HEART VALVES VALVULAR HEART DISEASE ATRIAL FIBRILLATION RECURRENT SYSTEMIC EMBOLISMMECHANICAL HEART VALVE 2.5-3.5 FROM: ORAL ANTICOAGULANTS. MECHANISM OF ACTION, CLINICAL EFFECTIVENESS, AND OPTIMAL THERAPEUTIC RANGE. CHEST 1995;108:231S-246S. Performed By: #### L [id number] ####[facility] (gripNote)[address] [place] [address] PROTHROMBIN TIME (PT) IN PPP BY COAGULATION ASSAY 17.1 Seconds High 12.3-14.8 [facility] Comment on above: Performed By: #### L [id number] ####[facility] (BEAKER)[address] [place] [address] 30on 04-24-2023 30 Normal [facility] 30 Normal [facility] 30 Normal [facility] ARTERIAL BLOOD GAS WITH IONI ZED CALCIUMon 04-24-2023 Base excess Calc (Bld) [Moles/Vol] -2.0000 mmol/L Normal -2.0-3.0 [facility] Comment on above: Performed By: #### L [id number] ####[facility] [id number] [place] [address] [facility] CALCIUM IONIZED (MMOL/L) IN BLOOD 1.06 mmol/L Low 1.15-1.33 [facility] Comment on above: Performed By: #### L [id number] ####[facility] [id number] [place] [address] [place] CO2 (Bld) [Partial pressure] 31 mm[Hg] Low 35-48 [facility] Comment on above: Performed By: #### L [id number] ####[facility] [id number] [place] [address] [place] HCO3 (Bld) [Moles/Vol] 21.5 mmol/L Normal 21.0-28.0 [facility] Comment on above: Performed By: #### L [id number] ####[facility] [id number] [place] [address] [place] Oxygen (Bld) [Partial pressure] 118 mm[Hg] High 83-100 [facility] Comment on above: Performed By: #### L [id number] ####[facility] [id number] [place] [address] [place] OXYGEN SATURATION (%) IN ARTERIAL BLOOD 99.4 % High 94.0-98.0 [facility] Comment on above: Performed By: #### L [id number] ####[facility] [id number] [place] [address] [place] pH (Bld) 7.45 [pH] Normal 7.35-7.45 [facility] Comment on above: Performed By: #### L [id number] ####[facility]AT[facility] [id number] [place] [address] [facility] SOURCE OF OXYGEN AC/VC Normal [facility] Comment on above: Performed By: #### L [id number] ####[facility] [id number] [place] [address] [place] TIDAL VOLUME (VT) CC 8 Normal [facility] Comment on above: Performed By: #### L [id number] ####[facility] [id number] [place] [address] [facility] BASIC METABOLIC PANELon 11-0 Anion gap [Moles/Vol] 10 mmol/L Normal 7-20 [facility] Comment on above: Performed By: #### L [id number] ####[facility] (BEAKER)[address] [place] [address] Calcium [Mass/Vol] 8.5 mg/dL Low 8.6-10.3 [facility] Comment on above: Performed By: #### L [id number] ####[facility] (BEAKER)[address] [place] [address] Chloride [Moles/Vol] 113 mmol/L High 98-107 [facility] Comment on above: Performed By: #### L [id number] ####[facility] (BEAKER)[address] [place] [address] CO2 [Moles/Vol] 24 mmol/L Normal 21-31 [facility] Comment on above: Performed By: #### L [id number] ####[facility] (BEAKER)[address] [place] [address] Creatinine [Mass/Vol] 0.83 mg/dL Normal 0.70-1.30 [facility] Comment on above: Performed By: #### L [id number] ####[facility] (BEAKER)[address] [place] [address] GLOMERULAR FILTRATION RATE ML/MIN/1.73 SQ M.PREDICTED 94.7 mL/min/1.73m*2 Normal >60.0 [facility] Comment on above: Result Comment: The [facility]???s estimated glomerular filtration rate (eGFR) will no [...] of individuals. Performed By: #### L [id number] ####[facility] ([facility])[address] [email or web address] [address] Glucose [Mass/Vol] 208 mg/dL High 70-100 [facility] Comment on above: Performed By: #### L [id number] ####[facility] ([facility])[address] [place] [address] Potassium [Moles/Vol] 3.6 mmol/L Normal 3.5-5.1 [facility] Comment on above: Performed By: #### L [id number] ####[facility] [facility] [place] [address] Sodium [Moles/Vol] 143 mmol/L Normal 136-145 [facility] Comment on above: Performed By: #### L [id number] ####[facility] ([facility])[address] [place] [address] Urea nitrogen [Mass/Vol] 19 mg/dL Normal 7-25 [facility] Comment on above: Performed By: #### L [id number] ####[facility] ([facility])[address] [place] [address] UREA NITROGEN/CREATININ E (MASS RATIO) IN SER/PLAS 22.9 Normal [facility] Comment on above: Performed By: #### L [id number] ####[facility] ([facility])[address] [place] [address] CALCIUM, IONIZEDon 3 CALCIUM IONIZED (MMOL/L) IN BLOOD 1.20 mmol/L Normal 1.15-1.33 [facility] Comment on above: Performed By: #### C ALCIUM, IONIZED ####[facility] [id number] [place] [address] [place] CBCon 04-24-2023 Erythrocyte distribution width (RBC) [Ratio] 13.9 % Normal 11.5-15.0 [facility] Comment on above: Performed By: #### L [id number] ####[facility] ([facility])[address] [place] [address] ERYTHROCYTE MEAN CORPUSCULAR HEMOGLOBIN CONCENTRATION (G/DL) BY AUTOMATED 34.3 g/dL Normal 32.0-35.0 [facility] Comment on above: Performed By: #### L [id number] ####[facility] ([facility]ER)[address] [place] [address] Hematocrit (Bld) [Volume fraction] 28.0 % Low 39.0-55.0 [facility] Comment on above: Performed By: #### L [id number] ####[facility] ([facility])[address] [place] [address] Hemoglobin (Bld) [Mass/Vol] 9.6 g/dL Low 13.0-17.0 [facility] Comment on above: Performed By: #### L [id number] ####[facility] ([facility])[address] [place] [address] IMMATURE PLATELET FRACTION % 5.1 % Normal 0.8-6.3 [facility] Comment on above: Performed By: #### L [id number] ####[facility] ([facility])[address] [place] [address] MCH (RBC) [Entitic mass] 30.7 pg Normal 27.0-33.0 [facility] Comment on above: Performed By: #### L [id number] ####[facility] ([facility])[address] [place] [address] MCV (RBC) [Entitic vol] 89.5 fL Normal 82.0-98.0 [facility] Comment on above: Performed By: #### L [id number] ####[facility] ([facility])[address] [place] [address] PLATELETS (10*3/UL) IN BLOOD AUTOMATED COUNT 69 10*3/uL Low 150-400 [facility] Comment on above: Performed By: #### L [id number] ####[facility] ([facility])[address] [place] [address] RBC (Bld) [#/Vol] 3.13 10*6/uL Low 4.20-5.70 [facility] Comment on above: Performed By: #### L [id number] ####[facility] ([facility])[address] [place] [address] WBC (Bld) [#/Vol] 16.62 10*3/uL High 4.00-10.60 [facility] Comment on above: Performed By: #### L [id number] ####[facility] ([facility])[address] [place] [address] CO-OXIMETRYon 04-24-2023 CARBOXYHEMOGLOBIN/ HEMOGLOBIN TOTAL % IN BLOOD 1.2 % Normal [facility] Comment on above: Performed By: #### L [id number] ####[facility] [id number] [place] [address] [place] Hemoglobin (Bld) [Mass/Vol] 9.6 g/dL Normal [facility] Comment on above: Performed By: #### L [id number] ####[facility] [id number] [place] [address] [place] METHEMOGLOBIN/100 IN BLOOD 0.4 % Normal 0.0-1.5 [facility] Comment on above: Performed By: #### L [id number] ####[facility] [id number] [facility] [address] [place] Oxygen saturation in Blood 67.5 % Normal [facility] Comment on above: Performed By: #### L [id number] ####[facility] [id number] [place] [address] [place] OXYGENATED HEMOGLOBIN IN BLOOD 66.4 % Normal [facility] Comment on above: Performed By: #### L [id number] ####[facility] [id number] [place] [address] [place] HEMOGLOBIN AND HEMATOCRIT, B LOODon 04-24-2023 Hematocrit (Bld) [Volume fraction] 28.1 % Low 39.0-55.0 [facility] Comment on above: Performed By: #### L [id number] ####[facility] ([facility]ER)[address] [place] [address] Hemoglobin (Bld) [Mass/Vol] 9.5 g/dL Low 13.0-17.0 [facility] Comment on above: Performed By: #### L [id number] ####[facility] ([facility])[address] [place] [address] HEPATIC FUNCTION PANELon Albumin [Mass/Vol] 3.7 g/dL Normal 3.5-5.7 [facility] Comment on above: Performed By: #### L [id number] ####[facility] ([facility])[address] [place] [address] ALP [Catalytic activity/Vol] 39 U/L Normal 34-104 [facility] Comment on above: Performed By: #### L [id number] ####[facility] ([facility])[address] [place] [address] ALT [Catalytic activity/Vol] 82 U/L High 7-52 [facility] Comment on above: Performed By: #### L [id number] ####[facility] ([facility]ER)[address] [place] [address] AST [Catalytic activity/Vol] 229 U/L High 13-39 [facility] Comment on above: Performed By: #### L [id number] ####[facility] ([facility])[address] [place] [address] Bilirubin [Mass/Vol] 0.5 mg/dL Normal 0.3-1.0 [facility] Comment on above: Performed By: #### L [id number] ####[facility] ([facility])[address] [place] [address] Magnesium [Mass/Vol] 0.2 mg/dL Normal 0-0.2 [facility] Comment on above: Performed By: #### L [id number] ####[facility] ([facility] [place] [address] Protein [Mass/Vol] 4.9 g/dL Low 6.0-8.3 [facility] Comment on above: Performed By: #### L [id number] ####[facility] ([facility])[address] [place] [address] LACTIC ACID WITH 4 HOUR REFL EXon 04-24-2023 LACTATE (MMOL/L) IN SER/PLAS 1.3 mmol/L Normal 0.5-2.2 [facility] Comment on above: Performed By: #### L [id number] ####[facility] ([facility])[address] [place] [address] Performed By: #### L [id number] ####[facility] ([facility])[address] [place] [address] LACTATE (MMOL/L) IN SER/PLAS 4.0 mmol/L Critically high 0.5-2.2 [facility] Comment on above: Result Comment: Prev ious result verified on 04/23/2023 2300 on specimen/case [id number] called with component Lactate blood venous for procedure Lactic acid, venous, whole blood with value 9.1 mmol/L. Performed By: #### L [id number] ####[facility] ([facility])[address] [place] [address] LACTATE (MMOL/L) IN SER/PLAS 9.1 mmol/L Critically high 0.5-2.2 [facility] Comment on above: Result Comment: Prev ious result verified on 04/23/2023 2137 on specimen/case [id number] called with component Lactate blood venous for procedure Lactic acid, venous, whole blood with value 12.1 mmol/L. Performed By: #### L [id number] ####[facility] ([facility])[address] [place] [address] MAGNESIUMon 04-24-2023 Magnesium [Mass/Vol] 1.8 mg/dL Low 1.9-2.7 [facility] Comment on above: Performed By: #### L [id number] ####[facility] ([facility])[address] [place] [address] MYOGLOBIN, URINEon 3 MYOGLOBIN URINE 2 mg/L High 0-1 [facility] Comment on above: Result Comment: The pH [...] was developed and its performance characteristicsdetermined by [facility]. It has not been cleared orapproved by the [place] Food and Drug Administration. This test wasperformed in a CLIA certified laboratory and is intended forclinical purposes.Performed By: [facility] [place], [place] [address]Dmfmnunagd Director: Wenceslao Healy MD, PhDCLIA Number: [id number] Performed By: #### L [id number] ####[facility] ([facility])[address] [place] [address] POCT GLUCOSE METER UNSOLICIT ED RESULTSon 04-24-2023 Glucose [Mass/Vol] 129 mg/dL High 70-105 [facility] Comment on above: Order Comment: Waive d Testing in the ED is performed under the ED CLIA certificate #[id number]. Result Comment: afin [email or web address] Performed By: #### L [id number] ####[facility] ([facility] [place] [address] Glucose [Mass/Vol] 116 mg/dL High 70-105 [facility] Comment on above: Order Comment: Waive d Testing in the ED is performed under the ED CLIA certificate #[id number]. Result Comment: dadk [email or web address] Performed By: #### L [id number] ####[facility] ([facility]AKER)[address] [place] [address] Glucose [Mass/Vol] 106 mg/dL High 70-105 [facility] Comment on above: Order Comment: Waive d Testing in the ED is performed under the ED CLIA certificate #[id number]. Result Comment: nhay man Performed By: #### L [id number] ####[facility] ([facility]ER)[address] [place] [address] Glucose [Mass/Vol] 113 mg/dL High 70-105 [facility] Comment on above: Order Comment: Waive d Testing in the ED is performed under the ED CLIA certificate #[id number]. Result Comment: nhay man Performed By: #### L [id number] ####[facility] ([facility]ER)[address] [place] [address] Glucose [Mass/Vol] 118 mg/dL High 70-105 [facility] Comment on above: Order Comment: Waive d Testing in the ED is performed under the ED CLIA certificate #[id number]. Result Comment: nhay man Performed By: #### L [id number] ####[facility] ([facility]ER)[address] [place] [address] Glucose [Mass/Vol] 75 mg/dL Normal 70-105 [facility] Comment on above: Order Comment: Waive d Testing in the ED is performed under the ED CLIA certificate #[id number]. Result Comment: nhay man Performed By: #### L [id number] ####[facility] ([facility]ER)[address] [place] [address] Glucose [Mass/Vol] 163 mg/dL High 70-105 [facility] Comment on above: Order Comment: Waive d Testing in the ED is performed under the ED CLIA certificate #[id number]. Result Comment: than sen2 Performed By: #### L [id number] ####[facility] (BE[facility]ER)[address] [place] [address] Glucose [Mass/Vol] 176 mg/dL High 70-105 [facility] Comment on above: Order Comment: Waive d Testing in the ED is performed under the ED CLIA certificate #[id number]. Result Comment: than sen2 Performed By: #### L [id number] ####[facility] (AKER)[address] [place] [address] Glucose [Mass/Vol] 147 mg/dL High 70-105 [facility] Comment on above: Order Comment: Waive d Testing in the ED is performed under the ED CLIA certificate #[id number]. Result Comment: kste [email or web address] Performed By: #### L [id number] ####[facility] ([facility])[address] [place] [address] Glucose [Mass/Vol] 199 mg/dL High 70-105 [facility] Comment on above: Order Comment: Waive d Testing in the ED is performed under the ED CLIA certificate #[id number]. Result Comment: kste [email or web address] Performed By: #### L [id number] ####[facility] (AKER)[address] [place] [address] Glucose [Mass/Vol] 202 mg/dL High 70-105 [facility] Comment on above: Order Comment: Waive d Testing in the ED is performed under the ED CLIA certificate #[id number]. Result Comment: than sen2 Performed By: #### L [id number] ####[facility] (BEAKER)[address] [place] [address] Glucose [Mass/Vol] 233 mg/dL High 70-105 [facility] Comment on above: Order Comment: Waive d Testing in the ED is performed under the ED CLIA certificate #[id number]. Result Comment: than sen2 Performed By: #### L [id number] ####[facility] ([facility]ER)[address] [place] [address] Glucose [Mass/Vol] 253 mg/dL High 70-105 [facility] Comment on above: Order Comment: Waive d Testing in the ED is performed under the ED CLIA certificate #[id number]. Result Comment: kste [email or web address] Performed By: #### L [id number] ####[facility] (BEAKER)[address] [place] [address] Glucose [Mass/Vol] 279 mg/dL High 70-105 [facility] Comment on above: Order Comment: Waive d Testing in the ED is performed under the ED CLIA certificate #[id number]. Result Comment: than sen2 Performed By: #### L [id number] ####[facility] ([facility])[address] [place] [address] Glucose [Mass/Vol] 270 mg/dL High 70-105 [facility] Comment on above: Order Comment: Waive d Testing in the ED is performed under the ED CLIA certificate #[id number]. Result Comment: than sen2 Performed By: #### L [id number] ####[facility] ([facility])[address] [facility] [address] Glucose [Mass/Vol] 267 mg/dL High 70-105 [facility] Comment on above: Order Comment: Waive d Testing in the ED is performed under the ED CLIA certificate #[id number]. Result Comment: ileana [email or web address] Performed By: #### L [id number] ####[facility] ([facility]ER)[address] [place] [address] POTASSIUM, WHOLE BLOODon Potassium [Moles/Vol] 4.4 mmol/L Normal 3.5-5.1 [facility] Comment on above: Performed By: #### P OTASSIUM, WHOLE BLOOD ####[facility] [id number] [place] [address] [place] SODIUM, WHOLE BLOODon 2022 SODIUM, WHOLE BLOOD 141 Normal 136-145 [facility] Comment on above: Performed By: #### S ODIUM, WHOLE BLOOD ####[facility] [id number] [place] [address] [place] TROPONIN Ion 04-24-2023 Troponin I.cardiac [Mass/Vol] 34.92 ng/mL Critically high 0.00-0.04 [facility] Comment on above: Result Comment: Prev ious result verified on 04/23/2023 2259 on specimen/case [id number] called with component Troponin I for procedure Troponin I with value 22.65 ng/mL. Performed By: #### L [id number] ####[facility] ([facility])[address] [place] [address] 30on 04-23-2023 30 Normal [facility] 30 Normal [facility] AMYLASEon 04-23-2023 Amylase [Catalytic activity/Vol] 86 U/L Normal 29-103 [facility] Comment on above: Performed By: #### L [id number] ####[facility] ([facility])[address] [place] [address] APTTon 04-23-2023 ACTIVATED PARTIAL THROMBOPLASTIN TIME IN PPP BY COAGULATION ASSAY 45.1 Seconds High 25.0-35.0 [facility] Comment on above: Result Comment: Clin ical significance of the APTT is questionable in the presence of heparin. Performed By: #### L [id number] ####[facility] ([facility])[address] [place] [address] ACTIVATED PARTIAL THROMBOPLASTIN TIME IN PPP BY COAGULATION ASSAY 49.0 Seconds High 25.0-35.0 [facility] Comment on above: Result Comment: Clin ical significance of the APTT is questionable in the presence of heparin. Performed By: #### L [id number] ####[facility] ([facility])[address] [place] [address] ARTERIAL BLOOD GAS WITH IONI ZED CALCIUMon 04-23-2023 Base excess Calc (Bld) [Moles/Vol] -16.89895 mmol/L Low -2.0-3.0 [facility] Comment on above: Performed By: #### L [id number] ####[facility] [id number] [facility] [place] [address] [facility] CALCIUM IONIZED (MMOL/L) IN BLOOD 1.15 mmol/L Normal 1.15-1.33 [facility] Comment on above: Performed By: #### L [id number] ####[facility] [id number] [address] [facility] [place] [address] [facility] CO2 (Bld) [Partial pressure] 20 mm[Hg] Invalid Interpretation Code 35-48 [facility] Comment on above: Performed By: #### L [id number] ####[facility] [id number] [address] [facility] [place] [address] [facility] HCO3 (Bld) [Moles/Vol] 8.8 mmol/L Low 21.0-28.0 [facility] Comment on above: Performed By: #### L [id number] ####[facility] [id number] [facility] [place] [address] [place] LPM 2 Normal [facility] Comment on above: Performed By: #### L [id number] ####[facility] [id number] [facility] [place] [address] [place] Oxygen (Bld) [Partial pressure] 67 mm[Hg] Low 83-100 [facility] Comment on above: Performed By: #### L [id number] ####[facility] [id number] [facility] [place] [address] [facility] OXYGEN SATURATION (%) IN ARTERIAL BLOOD 93.6 % Low 94.0-98.0 [facility] Comment on above: Performed By: #### L [id number] ####[facility] [id number] [address] [facility] [place] [address] [place] pH (Bld) 7.25 [pH] Low 7.35-7.45 [facility] Comment on above: Performed By: #### L [id number] ####[facility] [id number] [address] [facility] [place] [address] [facility] SOURCE OF OXYGEN Nasal cannula Normal [facility] Comment on above: Performed By: #### L [id number] ####[facility] [id number] [place] [address] [facility] Base excess Calc (Bld) [Moles/Vol] -15.74853 mmol/L Low -2.0-3.0 [facility] Comment on above: Order Comment: On ar rival to CVU Performed By: #### L [id number] ####[facility] [id number] [place] [address] [facility] CALCIUM IONIZED (MMOL/L) IN BLOOD 1.16 mmol/L Normal 1.15-1.33 [facility] Comment on above: Order Comment: On ar rival to CVU Performed By: #### L [id number] ####[facility] [id number] [place] [address] [facility] CO2 (Bld) [Partial pressure] 21 mm[Hg] Invalid Interpretation Code 35-48 [facility] Comment on above: Order Comment: On ar rival to CVU Performed By: #### L [id number] ####[facility] [id number] [place] [address] [facility] HCO3 (Bld) [Moles/Vol] 9.6 mmol/L Low 21.0-28.0 [facility] Comment on above: Order Comment: On ar rival to CVU Performed By: #### L [id number] ####[facility] [id number] [place] [address] [facility] Oxygen (Bld) [Partial pressure] 63 mm[Hg] Low 83-100 [facility] Comment on above: Order Comment: On ar rival to CVU Performed By: #### L [id number] ####[facility] [id number] [place] [address] [place] OXYGEN SATURATION (%) IN ARTERIAL BLOOD 92.2 % Low 94.0-98.0 [facility] Comment on above: Order Comment: On ar rival to CVU Performed By: #### L [id number] ####[facility] [id number] [place] [address] [facility] pH (Bld) 7.27 [pH] Low 7.35-7.45 [facility] Comment on above: Order Comment: On ar rival to CVU Performed By: #### L [id number] ####[facility] [id number] [place] [address] [place] SOURCE OF OXYGEN Nasal cannula Normal [facility] Comment on above: Order Comment: On ar rival to CVU Performed By: #### L [id number] ####[facility] [id number] [place] [address] [facility] Anesthesiaon 04-23-2023 Anesthesia [id number] Gui Ortiz 1955 M Date Provider Department Center 04/23/2023 KAUSHAL FINLEY [facility] SICU None Family History Family history unknown: Yes Normal [facility] BASIC METABOLIC PANELon 11-0 Anion gap [Moles/Vol] 10 mmol/L Normal 7-20 [facility] Comment on above: Performed By: #### L [id number] ####[facility] (BEAKER)[address] [place] [address] Calcium [Mass/Vol] 8.4 mg/dL Low 8.6-10.3 [facility] Comment on above: Performed By: #### L [id number] ####[facility] (BEAKER)[address] [place] [address] Chloride [Moles/Vol] 114 mmol/L High 98-107 [facility] Comment on above: Performed By: #### L [id number] ####[facility] (BEAKER)[address] [place] [address] CO2 [Moles/Vol] 25 mmol/L Normal 21-31 [facility] Comment on above: Performed By: #### L [id number] ####[facility] (BEAKER)[address] [place] [address] Creatinine [Mass/Vol] 0.86 mg/dL Normal 0.70-1.30 [facility] Comment on above: Performed By: #### L [id number] ####[facility] ([facility]ER)[address] [place] [address] GLOMERULAR FILTRATION RATE ML/MIN/1.73 SQ M.PREDICTED 93.7 mL/min/1.73m*2 Normal >60.0 [facility] Comment on above: Result Comment: The [facility]???s estimated glomerular filtration rate (eGFR) will no [...] of individuals. Performed By: #### L [id number] ####[facility] ([facility])[address] [facility] [place] [address] Glucose [Mass/Vol] 86 mg/dL Normal 70-100 [facility] Comment on above: Performed By: #### L [id number] ####[facility] ([facility])[address] [place] [address] Potassium [Moles/Vol] 3.9 mmol/L Normal 3.5-5.1 [facility] Comment on above: Performed By: #### L [id number] ####[facility] ([facility])[address] [facility] [place] [address] Sodium [Moles/Vol] 145 mmol/L Normal 136-145 [facility] Comment on above: Performed By: #### L [id number] ####[facility] ([facility])[address] [place] [address] Urea nitrogen [Mass/Vol] 19 mg/dL Normal 7-25 [facility] Comment on above: Performed By: #### L [id number] ####[facility] ([facility])[address] [facility] [place] [address] UREA NITROGEN/CREATININ E (MASS RATIO) IN SER/PLAS 22.1 Normal [facility] Comment on above: Performed By: #### L [id number] ####[facility] ([facility])[address] [facility] [place] [address] CALCIUM, IONIZEDon CALCIUM IONIZED (MMOL/L) IN BLOOD 1.21 mmol/L Normal 1.15-1.33 [facility] Comment on above: Performed By: #### C ALCIUM, IONIZED ####[facility] [id number] [place] [address] [facility] CALCIUM IONIZED (MMOL/L) IN BLOOD 1.19 mmol/L Normal 1.15-1.33 [facility] Comment on above: Performed By: #### C ALCIUM, IONIZED ####[facility] [id number] [place] [address] [facility] CALCIUM IONIZED (MMOL/L) IN BLOOD 1.07 mmol/L Low 1.15-1.33 [facility] Comment on above: Performed By: #### C ALCIUM, IONIZED ####[facility] [id number] [place] [address] [facility] CBCon 04-23-2023 Erythrocyte distribution width (RBC) [Ratio] 13.3 % Normal 11.5-15.0 [facility] Comment on above: Performed By: #### L [id number] ####[facility] ([facility])[address] [place] [address] ERYTHROCYTE MEAN CORPUSCULAR HEMOGLOBIN CONCENTRATION (G/DL) BY AUTOMATED 34.2 g/dL Normal 32.0-35.0 [facility] Comment on above: Performed By: #### L [id number] ####[facility] ([facility])[address] [place] [address] Hematocrit (Bld) [Volume fraction] 22.5 % Low 39.0-55.0 [facility] Comment on above: Performed By: #### L [id number] ####[facility] ([facility])[address] [place] [address] Hemoglobin (Bld) [Mass/Vol] 7.7 g/dL Low 13.0-17.0 [facility] Comment on above: Result Comment: Resu lts checked Performed By: #### L [id number] ####[facility] ([facility])[address], [place] [address] IMMATURE PLATELET FRACTION % 2.5 % Normal 0.8-6.3 [facility] Comment on above: Performed By: #### L [id number] ####[facility] ([facility])[address] [place] [address] MCH (RBC) [Entitic mass] 31.3 pg Normal 27.0-33.0 [facility] Comment on above: Performed By: #### L [id number] ####[facility] ([facility])[address] [place] [address] MCV (RBC) [Entitic vol] 91.5 fL Normal 82.0-98.0 [facility] Comment on above: Performed By: #### L [id number] ####[facility] ([facility])[address] [place] [address] PLATELETS (10*3/UL) IN BLOOD AUTOMATED COUNT 80 10*3/uL Low 150-400 [facility] Comment on above: Result Comment: Plt est 74 ok Performed By: #### L [id number] ####[facility] ([facility])[address] [place] [address] RBC (Bld) [#/Vol] 2.46 10*6/uL Low 4.20-5.70 [facility] Comment on above: Performed By: #### L [id number] ####[facility] ([facility])[address] [place] [address] WBC (Bld) [#/Vol] 7.84 10*3/uL Normal 4.00-10.60 [facility] Comment on above: Performed By: #### L [id number] ####[facility] ([facility])[address] [place] [address] CBC WITH AUTO DIFFERENTIALon 04-23-2023 Erythrocyte distribution width (RBC) [Ratio] 14.0 % Normal 11.5-15.0 [facility] Comment on above: Performed By: #### L [id number] ####[facility] ([facility])[address] [place] [address] ERYTHROCYTE MEAN CORPUSCULAR HEMOGLOBIN CONCENTRATION (G/DL) BY AUTOMATED 33.9 g/dL Normal 32.0-35.0 [facility] Comment on above: Performed By: #### L [id number] ####[facility] ([facility])[address] [place] [address] Hematocrit (Bld) [Volume fraction] 18.0 % Low 39.0-55.0 [facility] Comment on above: Performed By: #### L [id number] ####[facility] [place] [address] Hemoglobin (Bld) [Mass/Vol] 6.1 g/dL Low 13.0-17.0 [facility] Comment on above: Performed By: #### L [id number] ####[facility] ([facility] [place] [address] IMMATURE PLATELET FRACTION % 3.6 % Normal 0.8-6.3 [facility] Comment on above: Performed By: #### L [id number] ####[facility] [place] [address] MCH (RBC) [Entitic mass] 31.4 pg Normal 27.0-33.0 [facility] Comment on above: Performed By: #### L [id number] ####[facility] ([facility])[address] [place] [address] MCV (RBC) [Entitic vol] 92.8 fL Normal 82.0-98.0 [facility] Comment on above: Performed By: #### L [id number] ####[facility] ([facility])[address] [place] [address] NRBC (PER 100 WBCS) BY AUTOMATED COUNT 0.0 % Normal 0 [facility] Comment on above: Performed By: #### L [id number] ####[facility] ([facility])[address] [place] [address] PLATELETS (10*3/UL) IN BLOOD AUTOMATED COUNT 68 10*3/uL Low 150-400 [facility] Comment on above: Performed By: #### L [id number] ####[facility] ([facility] [place] [address] RBC (Bld) [#/Vol] 1.94 10*6/uL Low 4.20-5.70 [facility] Comment on above: Performed By: #### L [id number] ####[facility] ([facility])[address] [place] [address] WBC (Bld) [#/Vol] 12.79 10*3/uL High 4.00-10.60 [facility] Comment on above: Performed By: #### L [id number] ####[facility] ([facility])[address] [place] [address] CK TOTAL AND CKMBon 04-23-20 CREATINE KINASE (U/L) IN SER/PLAS 4110.0 U/L High 30.0-223.0 [facility] Comment on above: Performed By: #### L [id number] ####[facility] ([facility])[address] [place] [address] CREATINE KINASE MB/CREATINE KINASE TOTAL BY CALCULATION 2.9 High <=1.9 [facility] Comment on above: Performed By: #### L [id number] ####[facility] ([facility])[address] [place] [address] CREATINE KINASE-MB (NG/ML) IN SER/PLAS 122.5 ng/mL High 0.0-5.0 [facility] Comment on above: Performed By: #### L [id number] ####[facility] ([facility] [place] [address] CO-OXIMETRYon 04-23-2023 CARBOXYHEMOGLOBIN/ HEMOGLOBIN TOTAL % IN BLOOD 1.3 % Normal [facility] Comment on above: Performed By: #### L [id number] ####[facility] [id number] [place] [address] [place] Hemoglobin (Bld) [Mass/Vol] 7.8 g/dL Normal [facility] Comment on above: Performed By: #### L [id number] ####[facility] [id number] [place] [address] [place] METHEMOGLOBIN/100 IN BLOOD 1.0 % Normal 0.0-1.5 [facility] Comment on above: Performed By: #### L [id number] ####[facility] [id number] [place] [address] [place] Oxygen saturation in Blood 65.8 % Normal [facility] Comment on above: Performed By: #### L [id number] ####[facility] [id number] [place] [address] [place] OXYGENATED HEMOGLOBIN IN BLOOD 64.2 % Normal [facility] Comment on above: Performed By: #### L [id number] ####[facility] [id number] [place] [address] [facility] COMPREHENSIVE METABOLIC PANE Roddy 04-23-2023 Albumin [Mass/Vol] 3.6 g/dL Normal 3.5-5.7 [facility] Comment on above: Performed By: #### L [id number] ####[facility] ([facility])[address] [place] [address] ALP [Catalytic activity/Vol] 34 U/L Normal 34-104 [facility] Comment on above: Performed By: #### L [id number] ####[facility] ([facility])[address] [place] [address] ALT [Catalytic activity/Vol] 22 U/L Normal 7-52 [facility] Comment on above: Performed By: #### L [id number] ####[facility] ([facility])[address] [place] [address] Anion gap [Moles/Vol] 21 mmol/L High 7-20 [facility] Comment on above: Performed By: #### L [id number] ####[facility] ([facility])[address] [place] [address] AST [Catalytic activity/Vol] 132 U/L High 13-39 [facility] Comment on above: Performed By: #### L [id number] ####[facility] ([facility])[address] [place] [address] Bilirubin [Mass/Vol] 0.5 mg/dL Normal 0.3-1.0 [facility] Comment on above: Performed By: #### L [id number] ####[facility] ([facility])[address] [place] [address] Calcium [Mass/Vol] 8.1 mg/dL Low 8.6-10.3 [facility] Comment on above: Performed By: #### L [id number] ####[facility] ([facility])[address] [place] [address] Chloride [Moles/Vol] 109 mmol/L High 98-107 [facility] Comment on above: Performed By: #### L [id number] ####[facility] ([facility])[address] [place] [address] CO2 [Moles/Vol] 20 mmol/L Low 21-31 [facility] Comment on above: Performed By: #### L [id number] ####[facility] ([facility])[address] [place] [address] Creatinine [Mass/Vol] 1.16 mg/dL Normal 0.70-1.30 [facility] Comment on above: Performed By: #### L [id number] ####[facility] ([facility])[address] [place] [address] GLOMERULAR FILTRATION RATE ML/MIN/1.73 SQ M.PREDICTED 68.2 mL/min/1.73m*2 Normal >60.0 [facility] Comment on above: Result Comment: The [facility]???s estimated glomerular filtration rate (eGFR) will no [...] of individuals. Performed By: #### L [id number] ####[facility] ([facility])[address] [place] [address] Glucose [Mass/Vol] 255 mg/dL High 70-100 [facility] Comment on above: Performed By: #### L [id number] ####[facility] ([facility])[address] [place] [address] Potassium [Moles/Vol] 4.4 mmol/L Normal 3.5-5.1 [facility] Comment on above: Performed By: #### L [id number] ####[facility] ([facility])[address] [place] [address] Protein [Mass/Vol] 4.7 g/dL Low 6.0-8.3 [facility] Comment on above: Performed By: #### L [id number] ####[facility] ([facility])[address] [place] [address] Sodium [Moles/Vol] 146 mmol/L High 136-145 [facility] Comment on above: Performed By: #### L [id number] ####[facility] ([facility])[address] [place] [address] Urea nitrogen [Mass/Vol] 21 mg/dL Normal 7-25 [facility] Comment on above: Performed By: #### L [id number] ####[facility] ([facility])[address] [facility] [address] UREA NITROGEN/CREATININ E (MASS RATIO) IN SER/PLAS 18.1 [facility] Comment on above: Performed By: #### L [id number] ####[facility] ([facility])[address] [place] [address] CONSULTon 04-23-2023 CONSULT Normal [facility] CONSULT Normal [facility] FIBRINOGENon 04-23-2023 Magnesium [Mass/Vol] 258 mg/dL Normal 150-425 [facility] Comment on above: Performed By: #### L [id number] ####[facility] ([facility])[address] [place] [address] LACTIC ACID WITH 4 HOUR REFL EXon 04-23-2023 LACTATE (MMOL/L) IN SER/PLAS 12.1 mmol/L Critically high 0.5-2.2 [facility] Comment on above: Result Comment: Prev ious result verified on 04/22/2023 2146 on specimen/case [id number] called with component Lactate for procedure Lactic acid, plasma with value 2.6 mmol/L. Performed By: #### L [id number] ####[facility] ([facility])[address] [place] [address] LACTIC ACID, PLASMAon 2022 LACTATE (MMOL/L) IN SER/PLAS 2.2 mmol/L Normal 0.5-2.2 [facility] Comment on above: Performed By: #### L [id number] ####[facility] ([facility])[address] [place] [address] LIPASEon 04-23-2023 LIPASE (U/L) IN SER/PLAS 12 U/L Normal 11-82 [facility] Comment on above: Performed By: #### L [id number] ####[facility] ([facility])[address] [place] [address] MAGNESIUMon 04-23-2023 Magnesium [Mass/Vol] 1.8 mg/dL Low 1.9-2.7 [facility] Comment on above: Performed By: #### L [id number] ####[facility] ([facility])[address] [place] [address] MANUAL DIFFERENTIALon 2022 BASOPHILS (10*3/UL) IN BLOOD BY CALCULATION 0.01 10*3/uL Normal 0.00-0.20 [facility] Comment on above: Performed By: #### L [id number] ####[facility] ([facility])[address] [place] [address] BASOPHILS/100 LEUKOCYTES IN BLOOD BY AUTOMATED COUNT 0.1 % Normal 0.0-1.0 [facility] Comment on above: Performed By: #### L [id number] ####[facility] ([facility])[address] [place] [address] EOSINOPHILS (10*3/UL) IN BLOOD BY CALCULATION 0.00 10*3/uL Normal 0.00-0.50 [facility] Comment on above: Performed By: #### L [id number] ####[facility] ([facility])[address] [place] [address] EOSINOPHILS/100 LEUKOCYTES IN BLOOD BY AUTOMATED COUNT 0.0 % Normal 0.0-6.0 [facility] Comment on above: Performed By: #### L [id number] ####[facility] ([facility])[address] [place] [address] IMMATURE GRANULOCYTES (10*3/UL) IN BLOOD BY CALCULATION 0.09 10*3/uL Normal 0.00-0.20 [facility] Comment on above: Performed By: #### L [id number] ####[facility] ([facility])[address] [place] [address] IMMATURE GRANULOCYTES/100 LEUKOCYTES IN BLOOD BY AUTOMATED COUNT 0.7 % Normal 0.0-1.0 [facility] Comment on above: Performed By: #### L [id number] ####[facility] ([facility])[address] [place] [address] LYMPHOCYTES (10*3/UL) IN BLOOD BY CALCULATION 0.72 10*3/uL Low 1.20-4.00 [facility] Comment on above: Performed By: #### L [id number] ####[facility] ([facility])[address] [place] [address] LYMPHOCYTES/100 LEUKOCYTES IN BLOOD BY AUTOMATED COUNT 5.6 % Low 20.0-45.0 [facility] Comment on above: Performed By: #### L [id number] ####[facility] ([facility])[address] [place] [address] MONOCYTES (10*3/UL) IN BLOOD BY CALCUATION 0.70 10*3/uL Normal 0.10-1.00 [facility] Comment on above: Performed By: #### L [id number] ####[facility] ([facility])[address] [place] [address] MONOCYTES/100 LEUKOCYTES IN BLOOD BY AUTOMATED COUNT 5.5 % Normal 5.0-12.0 [facility] Comment on above: Performed By: #### L [id number] ####[facility] ([facility])[address] [place] [address] NEUTROPHILS (10*3/UL) IN BLOOD BY CALCULATION 11.3 10*3/uL High 1.6-7.6 [facility] Comment on above: Performed By: #### L [id number] ####[facility] ([facility])[address] [place] [address] NEUTROPHILS/100 LEUKOCYTES IN BLOOD BY AUTOMATED COUNT 88.1 % High 40.0-72.0 [facility] Comment on above: Performed By: #### L [id number] ####[facility] ([facility])[address] [place] [address] MYOGLOBIN, SERUMon 3 MYOGLOBIN (NG/ML) IN SER/PLAS 1832 ng/mL High 0-90 [facility] Comment on above: Result Comment: A DO UBLING OF VALUES FROM SERIAL BLOOD COLLECTIONS (1 - 2 HOURS APART) IS MORE INDICATIVE OF A M.I. THAN THE ABSOLUTE VALUE. Performed By: #### L [id number] ####[facility] ([facility])[address] [place] [address] PHOSPHORUSon 04-23-2023 Magnesium [Mass/Vol] 3.1 mg/dL Normal 2.5-5.0 [facility] Comment on above: Performed By: #### L [id number] ####[facility] ([facility])[address] [place] [address] POCT GLUCOSE METER UNSOLICIT ED RESULTSon 04-23-2023 Glucose [Mass/Vol] 267 mg/dL High 70-105 [facility] Comment on above: Order Comment: Waive d Testing in the ED is performed under the ED CLIA certificate #[id number]. Result Comment: than [email or web address] Performed By: #### L [id number] ####[facility] ([facility])[address] [place] [address] Glucose [Mass/Vol] 138 mg/dL High 70-105 [facility] Comment on above: Order Comment: Waive d Testing in the ED is performed under the ED CLIA certificate #[id number]. Result Comment: nhay man Performed By: #### L [id number] ####[facility] ([facility])[address] [place] [address] Glucose [Mass/Vol] 92 mg/dL Normal 70-105 [facility] Comment on above: Order Comment: Waive d Testing in the ED is performed under the ED CLIA certificate #[id number]. Result Comment: nhay man Performed By: #### L [id number] ####[facility] ([facility])[address] [place] [address] Glucose [Mass/Vol] 101 mg/dL Normal 70-105 [facility] Comment on above: Order Comment: Waive d Testing in the ED is performed under the ED CLIA certificate #[id number]. Result Comment: [email or web address] Performed By: #### L [id number] ####[facility] ([facility])[address] [place] [address] Glucose [Mass/Vol] 91 mg/dL Normal 70-105 [facility] Comment on above: Order Comment: Waive d Testing in the ED is performed under the ED CLIA certificate #[id number]. Result Comment: [email or web address] Performed By: #### L [id number] ####[facility] ([facility])[address] [place] [address] Glucose [Mass/Vol] 114 mg/dL High 70-105 [facility] Comment on above: Order Comment: Waive d Testing in the ED is performed under the ED CLIA certificate #[id number]. Result Comment: [email or web address] Performed By: #### L [id number] ####[facility] ([facility])[address] [place] [address] Glucose [Mass/Vol] 123 mg/dL High 70-105 [facility] Comment on above: Order Comment: Waive d Testing in the ED is performed under the ED CLIA certificate #[id number]. Result Comment: [email or web address] Performed By: #### L [id number] ####[facility] ([facility])[address] [place] [address] Glucose [Mass/Vol] 142 mg/dL High 70-105 [facility] Comment on above: Order Comment: Waive d Testing in the ED is performed under the ED CLIA certificate #[id number]. Result Comment: [email or web address] Performed By: #### L [id number] ####[facility] ([facility])[address] [place] [address] Glucose [Mass/Vol] 152 mg/dL High 70-105 [facility] Comment on above: Order Comment: Waive d Testing in the ED is performed under the ED CLIA certificate #[id number]. Result Comment: [email or web address] [email or web address] Performed By: #### L [id number] ####[facility] ([facility])[address] [place] [address] Glucose [Mass/Vol] 167 mg/dL High 70-105 [facility] Comment on above: Order Comment: Waive d Testing in the ED is performed under the ED CLIA certificate #[id number]. Result Comment: [email or web address] Performed By: #### L [id number] ####[facility] [place] [address] POTASSIUM, WHOLE BLOODon Potassium [Moles/Vol] 4.3 mmol/L Normal 3.5-5.1 [facility] Comment on above: Performed By: #### P OTASSIUM, WHOLE BLOOD ####[facility] [id number] [place] [address] [place] Potassium [Moles/Vol] 4.1 mmol/L Normal 3.5-5.1 [facility] Comment on above: Performed By: #### P OTASSIUM, WHOLE BLOOD ####[facility] [id number] [place] [address] [facility] Potassium [Moles/Vol] 4.3 mmol/L Normal 3.5-5.1 [facility] Comment on above: Performed By: #### P OTASSIUM, WHOLE BLOOD ####[facility] [id number] [place] [address] [facility] PROTIME-INRon 04-23-2023 INR IN PPP BY COAGULATION ASSAY 1.98 High 0.90-1.10 [facility] Comment on above: Result Comment: ACCC P RECOMMENDED INR FOR WARFARIN THERAPY CONDITION INRPROPHYLAXIS OF VENOUS THROMBOSIS 2-3(HIGH-RISK SURGERY)TREATMENT OF VENOUS THROMBOSIS 2-3TREATMENT OF PULMONARY EMBOLISM 2-3PREVENTION OF SYSTEMIC EMBOLISM: 2-3 ACUTE MYOCARDIAL INFARCTION TISSUE HEART VALVES VALVULAR HEART DISEASE ATRIAL FIBRILLATION RECURRENT SYSTEMIC EMBOLISMMECHANICAL HEART VALVE 2.5-3.5 FROM: ORAL ANTICOAGULANTS. MECHANISM OF ACTION, CLINICAL EFFECTIVENESS, AND OPTIMAL THERAPEUTIC RANGE. CHEST 1995;108:231S-246S. Performed By: #### L [id number] ####[facility] ([facility])[address] [place] [address] PROTHROMBIN TIME (PT) IN PPP BY COAGULATION ASSAY 22.6 Seconds High 12.3-14.8 [facility] Comment on above: Performed By: #### L [id number] ####[facility] ([facility])[address] [place] [address] INR IN PPP BY COAGULATION ASSAY 1.47 High 0.90-1.10 [facility] Comment on above: Result Comment: ACCC P RECOMMENDED INR FOR WARFARIN THERAPY CONDITION INRPROPHYLAXIS OF VENOUS THROMBOSIS 2-3(HIGH-RISK SURGERY)TREATMENT OF VENOUS THROMBOSIS 2-3TREATMENT OF PULMONARY EMBOLISM 2-3PREVENTION OF SYSTEMIC EMBOLISM: 2-3 ACUTE MYOCARDIAL INFARCTION TISSUE HEART VALVES VALVULAR HEART DISEASE ATRIAL FIBRILLATION RECURRENT SYSTEMIC EMBOLISMMECHANICAL HEART VALVE 2.5-3.5 FROM: ORAL ANTICOAGULANTS. MECHANISM OF ACTION, CLINICAL EFFECTIVENESS, AND OPTIMAL THERAPEUTIC RANGE. CHEST 1995;108:231S-246S. Performed By: #### L [id number] ####[facility] ([facility])[address] [facility] [place] [address] PROTHROMBIN TIME (PT) IN PPP BY COAGULATION ASSAY 17.9 Seconds High 12.3-14.8 [facility] Comment on above: Performed By: #### L [id number] ####[facility] ([facility])[address] [place] [address] SODIUM, WHOLE BLOODon 2022 SODIUM, WHOLE BLOOD 141 Normal 136-145 [facility] Comment on above: Performed By: #### S ODIUM, WHOLE BLOOD ####[facility] [id number] [facility] [place] [address] [facility] SODIUM, WHOLE BLOOD 143 Normal 136-145 [facility] Comment on above: Performed By: #### S ODIUM, WHOLE BLOOD ####[facility] [id number] [facility] [place] [address] [place] SODIUM, WHOLE BLOOD 144 Normal 136-145 [facility] Comment on above: Performed By: #### S ODIUM, WHOLE BLOOD ####[facility] [id number] [place] [address] [place] TROPONIN Ion 04-23-2023 Troponin I.cardiac [Mass/Vol] 22.65 ng/mL Critically high 0.00-0.04 [facility] Comment on above: Result Comment: M-TR OPONIN INITIAL CRITICAL HIGH; RESPUN AND RETESTED Performed By: #### L [id number] ####[facility] (gripNote)[address] [place] [address] ANESon 04-22-2023 ANES Normal [facility] APTTon 04-22-2023 ACTIVATED PARTIAL THROMBOPLASTIN TIME IN PPP BY COAGULATION ASSAY 43.4 Seconds High 25.0-35.0 [facility] Comment on above: Result Comment: Clin ical significance of the APTT is questionable in the presence of heparin. Performed By: #### L [id number] ####[facility] (gripNote)[address] [place] [address] ACTIVATED PARTIAL THROMBOPLASTIN TIME IN PPP BY COAGULATION ASSAY 36.9 Seconds High 25.0-35.0 [facility] Comment on above: Result Comment: Clin ical significance of the APTT is questionable in the presence of heparin. Performed By: #### L [id number] ####[facility] (gripNote)[address] [place] [address] ACTIVATED PARTIAL THROMBOPLASTIN TIME IN PPP BY COAGULATION ASSAY 40.3 Seconds High 25.0-35.0 [facility] Comment on above: Order Comment: Pre-o p diagnosis:NSTEMI (non-ST elevated myocardial infarction) (CMS/HCC) [I21.4]Acute non-ST segment elevation myocardial infarction (CMS/HCC) [I21.4]Coronary artery disease, unspecified vessel or lesion type, unspecified whether angina present, unspecified whether [place] or 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] Result Comment: Clin ical significance of the APTT is questionable in the presence of heparin. Performed By: #### L [id number] ####[facility] (gripNote)[address] [place] [address] BASIC METABOLIC PANELon 11-0 Anion gap [Moles/Vol] 9 mmol/L Normal 7-20 [facility] Comment on above: Performed By: #### L [id number] ####[facility] (BEAKER)[address] [place] [address] Calcium [Mass/Vol] 7.9 mg/dL Low 8.6-10.3 [facility] Comment on above: Performed By: #### L [id number] ####[facility] ([facility])[address] [facility] [address] Chloride [Moles/Vol] 114 mmol/L High 98-107 [facility] Comment on above: Performed By: #### L [id number] ####[facility] ([facility])[address] [place] [address] CO2 [Moles/Vol] 25 mmol/L Normal 21-31 [facility] Comment on above: Performed By: #### L [id number] ####[facility] ([facility])[address] [facility] [address] Creatinine [Mass/Vol] 0.86 mg/dL Normal 0.70-1.30 [facility] Comment on above: Performed By: #### L [id number] ####[facility] ([facility])[address] [place] [address] GLOMERULAR FILTRATION RATE ML/MIN/1.73 SQ M.PREDICTED 93.7 mL/min/1.73m*2 Normal >60.0 [facility] Comment on above: Result Comment: The [facility]???s estimated glomerular filtration rate (eGFR) will no [...] of individuals. Performed By: #### L [id number] ####[facility] ([facility] [place] [address] Glucose [Mass/Vol] 162 mg/dL High 70-100 [facility] Comment on above: Performed By: #### L [id number] ####[facility] ([facility])[address] [place] [address] Potassium [Moles/Vol] 4.2 mmol/L Normal 3.5-5.1 [facility] Comment on above: Performed By: #### L [id number] ####[facility] ([facility])[address] [place] [address] Sodium [Moles/Vol] 144 mmol/L Normal 136-145 [facility] Comment on above: Performed By: #### L [id number] ####[facility] ([facility])[address] [place] [address] Urea nitrogen [Mass/Vol] 19 mg/dL Normal 7-25 [facility] Comment on above: Performed By: #### L [id number] ####[facility] ([facility])[address] [place] [address] UREA NITROGEN/CREATININ E (MASS RATIO) IN SER/PLAS 22.1 Normal [facility] Comment on above: Performed By: #### L [id number] ####[facility] ([facility])[address] [place] [address] Anion gap [Moles/Vol] 7 mmol/L Normal 7-20 [facility] Comment on above: Performed By: #### L [id number] ####[facility] ([facility])[address] [place] [address] Calcium [Mass/Vol] 8.2 mg/dL Low 8.6-10.3 [facility] Comment on above: Performed By: #### L [id number] ####[facility] ([facility] [place] [address] Chloride [Moles/Vol] 114 mmol/L High 98-107 [facility] Comment on above: Performed By: #### L [id number] ####[facility] ([facility] [place] [address] CO2 [Moles/Vol] 29 mmol/L Normal 21-31 [facility] Comment on above: Performed By: #### L [id number] ####[facility] ([facility] [place] [address] Creatinine [Mass/Vol] 0.77 mg/dL Normal 0.70-1.30 [facility] Comment on above: Performed By: #### L [id number] ####[facility] ([facility])[address] [place] [address] GLOMERULAR FILTRATION RATE ML/MIN/1.73 SQ M.PREDICTED 96.9 mL/min/1.73m*2 Normal >60.0 [facility] Comment on above: Result Comment: The [facility]???s estimated glomerular filtration rate (eGFR) will no [...] of individuals. Performed By: #### L [id number] ####[facility] ([facility] [place] [address] Glucose [Mass/Vol] 142 mg/dL High 70-100 [facility] Comment on above: Performed By: #### L [id number] ####[facility] ([facility] [place] [address] Potassium [Moles/Vol] 3.7 mmol/L Normal 3.5-5.1 [facility] Comment on above: Performed By: #### L [id number] ####[facility] ([facility] [place] [address] Sodium [Moles/Vol] 146 mmol/L High 136-145 [facility] Comment on above: Performed By: #### L [id number] ####[facility] (BEAKER)[address] [place] [address] Urea nitrogen [Mass/Vol] 18 mg/dL Normal 7-25 [facility] Comment on above: Performed By: #### L [id number] ####[facility] (BEAKER)[address] [place] [address] UREA NITROGEN/CREATININ E (MASS RATIO) IN SER/PLAS 23.4 Normal [facility] Comment on above: Performed By: #### L [id number] ####[facility] (BEAKER)[address] [place] [address] Anion gap [Moles/Vol] 7 mmol/L Normal 7-20 [facility] Comment on above: Order Comment: Pre-o p diagnosis:NSTEMI (non-ST elevated myocardial infarction) (CMS/HCC) [I21.4]Acute non-ST segment elevation myocardial infarction (CMS/HCC) [I21.4]Coronary artery disease, unspecified vessel or lesion type, unspecified whether angina present, unspecified whether [place] or 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] Performed By: #### L [id number] ####[facility] (BEAKER)[address] [place] [address] Calcium [Mass/Vol] 8.5 mg/dL Low 8.6-10.3 [facility] Comment on above: Order Comment: Pre-o p diagnosis:NSTEMI (non-ST elevated myocardial infarction) (CMS/HCC) [I21.4]Acute non-ST segment elevation myocardial infarction (CMS/HCC) [I21.4]Coronary artery disease, unspecified vessel or lesion type, unspecified whether angina present, unspecified whether [place] or 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] Performed By: #### L [id number] ####[facility] (BEAKER)[address] [place] [address] Chloride [Moles/Vol] 116 mmol/L High 98-107 [facility] Comment on above: Order Comment: Pre-o p diagnosis:NSTEMI (non-ST elevated myocardial infarction) (CMS/HCC) [I21.4]Acute non-ST segment elevation myocardial infarction (CMS/HCC) [I21.4]Coronary artery disease, unspecified vessel or lesion type, unspecified whether angina present, unspecified whether [place] or 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] Performed By: #### L [id number] ####[facility] (BEAKER)[address] [place] [address] CO2 [Moles/Vol] 25 mmol/L Normal 21-31 [facility] Comment on above: Order Comment: Pre-o p diagnosis:NSTEMI (non-ST elevated myocardial infarction) (CMS/HCC) [I21.4]Acute non-ST segment elevation myocardial infarction (CMS/HCC) [I21.4]Coronary artery disease, unspecified vessel or lesion type, unspecified whether angina present, unspecified whether [place] or 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] Performed By: #### L [id number] ####[facility] (BEAKER)[address] [place] [address] Creatinine [Mass/Vol] 0.82 mg/dL Normal 0.70-1.30 [facility] Comment on above: Order Comment: Pre-o p diagnosis:NSTEMI (non-ST elevated myocardial infarction) (CMS/HCC) [I21.4]Acute non-ST segment elevation myocardial infarction (CMS/HCC) [I21.4]Coronary artery disease, unspecified vessel or lesion type, unspecified whether angina present, unspecified whether [place] or 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] Performed By: #### L [id number] ####[facility] (BEAKER)[address] [place] [address] GLOMERULAR FILTRATION RATE ML/MIN/1.73 SQ M.PREDICTED 95.1 mL/min/1.73m*2 Normal >60.0 [facility] Comment on above: Order Comment: Pre-o p diagnosis:NSTEMI (non-ST elevated myocardial infarction) (CMS/HCC) [I21.4]Acute non-ST segment elevation myocardial infarction (CMS/HCC) [I21.4]Coronary artery disease, unspecified vessel or lesion type, unspecified whether angina present, unspecified whether [place] or 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] Result Comment: The [facility]???s estimated glomerular filtration rate (eGFR) will no [...] of individuals. Performed By: #### L [id number] ####[facility] (BEAKER)[address] [place] [address] Glucose [Mass/Vol] 198 mg/dL High 70-100 [facility] Comment on above: Order Comment: Pre-o p diagnosis:NSTEMI (non-ST elevated myocardial infarction) (CMS/HCC) [I21.4]Acute non-ST segment elevation myocardial infarction (CMS/HCC) [I21.4]Coronary artery disease, unspecified vessel or lesion type, unspecified whether angina present, unspecified whether [place] or 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] Performed By: #### L [id number] ####[facility] (BEAKER)[address] [place] [address] Potassium [Moles/Vol] 3.1 mmol/L Low 3.5-5.1 [facility] Comment on above: Order Comment: Pre-o p diagnosis:NSTEMI (non-ST elevated myocardial infarction) (CMS/HCC) [I21.4]Acute non-ST segment elevation myocardial infarction (CMS/HCC) [I21.4]Coronary artery disease, unspecified vessel or lesion type, unspecified whether angina present, unspecified whether [place] or 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] Performed By: #### L [id number] ####[facility] (BEAKER)[address] [place] [address] Sodium [Moles/Vol] 145 mmol/L Normal 136-145 [facility] Comment on above: Order Comment: Pre-o p diagnosis:NSTEMI (non-ST elevated myocardial infarction) (CMS/HCC) [I21.4]Acute non-ST segment elevation myocardial infarction (CMS/HCC) [I21.4]Coronary artery disease, unspecified vessel or lesion type, unspecified whether angina present, unspecified whether [place] or 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] Performed By: #### L [id number] ####[facility] (BEAKER)[address] [place] [address] Urea nitrogen [Mass/Vol] 18 mg/dL Normal 7-25 [facility] Comment on above: Order Comment: Pre-o p diagnosis:NSTEMI (non-ST elevated myocardial infarction) (CMS/HCC) [I21.4]Acute non-ST segment elevation myocardial infarction (CMS/HCC) [I21.4]Coronary artery disease, unspecified vessel or lesion type, unspecified whether angina present, unspecified whether [place] or 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] Performed By: #### L [id number] ####[facility] (gripNote)[address] [place] [address] UREA NITROGEN/CREATININ E (MASS RATIO) IN SER/PLAS 22.0 Normal [facility] Comment on above: Order Comment: Pre-o p diagnosis:NSTEMI (non-ST elevated myocardial infarction) (CMS/HCC) [I21.4]Acute non-ST segment elevation myocardial infarction (CMS/HCC) [I21.4]Coronary artery disease, unspecified vessel or lesion type, unspecified whether angina present, unspecified whether [place] or 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] Performed By: #### L [id number] ####[facility] (gripNote)[address] [place] [address] CBCon 04-22-2023 Erythrocyte distribution width (RBC) [Ratio] 13.1 % Normal 11.5-15.0 [facility] Comment on above: Performed By: #### L [id number] ####[facility] (gripNote)[address] [place] [address] ERYTHROCYTE MEAN CORPUSCULAR HEMOGLOBIN CONCENTRATION (G/DL) BY AUTOMATED 34.7 g/dL Normal 32.0-35.0 [facility] Comment on above: Performed By: #### L [id number] ####[facility] (BEAKER)[address] [place] [address] Hematocrit (Bld) [Volume fraction] 32.6 % Low 39.0-55.0 [facility] Comment on above: Performed By: #### L [id number] ####[facility] (BEAKER)[address] [place] [address] Hemoglobin (Bld) [Mass/Vol] 11.3 g/dL Low 13.0-17.0 [facility] Comment on above: Performed By: #### L [id number] ####[facility] (BEAKER)[address] [place], [place] [address] MCH (RBC) [Entitic mass] 31.1 pg Normal 27.0-33.0 [facility] Comment on above: Performed By: #### L [id number] ####[facility] ([facility] [place] [address] MCV (RBC) [Entitic vol] 89.8 fL Normal 82.0-98.0 [facility] Comment on above: Performed By: #### L [id number] ####[facility] ([facility] [place] [address] PLATELETS (10*3/UL) IN BLOOD AUTOMATED COUNT 107 10*3/uL Low 150-400 [facility] Comment on above: Performed By: #### L [id number] ####[facility] (BEAKER)[address] [place] [address] RBC (Bld) [#/Vol] 3.63 10*6/uL Low 4.20-5.70 [facility] Comment on above: Performed By: #### L [id number] ####[facility] (BEAKER)[address] [place] [address] WBC (Bld) [#/Vol] 18.54 10*3/uL High 4.00-10.60 [facility] Comment on above: Performed By: #### L [id number] ####[facility] (BEAKER)[address] [place] [address] Erythrocyte distribution width (RBC) [Ratio] 13.0 % Normal 11.5-15.0 [facility] Comment on above: Order Comment: Pre-o p diagnosis:NSTEMI (non-ST elevated myocardial infarction) (CMS/HCC) [I21.4]Acute non-ST segment elevation myocardial infarction (CMS/HCC) [I21.4]Coronary artery disease, unspecified vessel or lesion type, unspecified whether angina present, unspecified whether [place] or 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] Performed By: #### L [id number] ####[facility] (gripNote)[address] [place] [address] ERYTHROCYTE MEAN CORPUSCULAR HEMOGLOBIN CONCENTRATION (G/DL) BY AUTOMATED 34.5 g/dL Normal 32.0-35.0 [facility] Comment on above: Order Comment: Pre-o p diagnosis:NSTEMI (non-ST elevated myocardial infarction) (CMS/HCC) [I21.4]Acute non-ST segment elevation myocardial infarction (CMS/HCC) [I21.4]Coronary artery disease, unspecified vessel or lesion type, unspecified whether angina present, unspecified whether [place] or 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] Performed By: #### L [id number] ####[facility] (gripNote)[address] [place] [address] Hematocrit (Bld) [Volume fraction] 26.7 % Low 39.0-55.0 [facility] Comment on above: Order Comment: Pre-o p diagnosis:NSTEMI (non-ST elevated myocardial infarction) (CMS/HCC) [I21.4]Acute non-ST segment elevation myocardial infarction (CMS/HCC) [I21.4]Coronary artery disease, unspecified vessel or lesion type, unspecified whether angina present, unspecified whether [place] or 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] Performed By: #### L [id number] ####[facility] (gripNote)[address] [facility] [address] Hemoglobin (Bld) [Mass/Vol] 9.2 g/dL Low 13.0-17.0 [facility] Comment on above: Order Comment: Pre-o p diagnosis:NSTEMI (non-ST elevated myocardial infarction) (CMS/HCC) [I21.4]Acute non-ST segment elevation myocardial infarction (CMS/HCC) [I21.4]Coronary artery disease, unspecified vessel or lesion type, unspecified whether angina present, unspecified whether [place] or 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] Performed By: #### L [id number] ####[facility] (gripNote)[address] [place] [address] MCH (RBC) [Entitic mass] 31.4 pg Normal 27.0-33.0 [facility] Comment on above: Order Comment: Pre-o p diagnosis:NSTEMI (non-ST elevated myocardial infarction) (CMS/HCC) [I21.4]Acute non-ST segment elevation myocardial infarction (CMS/HCC) [I21.4]Coronary artery disease, unspecified vessel or lesion type, unspecified whether angina present, unspecified whether [place] or 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] Performed By: #### L [id number] ####[facility] ([facility])[address] [place] [address] MCV (RBC) [Entitic vol] 91.1 fL Normal 82.0-98.0 [facility] Comment on above: Order Comment: Pre-o p diagnosis:NSTEMI (non-ST elevated myocardial infarction) (CMS/HCC) [I21.4]Acute non-ST segment elevation myocardial infarction (CMS/HCC) [I21.4]Coronary artery disease, unspecified vessel or lesion type, unspecified whether angina present, unspecified whether [place] or 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] Performed By: #### L [id number] ####[facility] ([facility])[address] [place] [address] PLATELETS (10*3/UL) IN BLOOD AUTOMATED COUNT 134 10*3/uL Low 150-400 [facility] Comment on above: Order Comment: Pre-o p diagnosis:NSTEMI (non-ST elevated myocardial infarction) (CMS/HCC) [I21.4]Acute non-ST segment elevation myocardial infarction (CMS/HCC) [I21.4]Coronary artery disease, unspecified vessel or lesion type, unspecified whether angina present, unspecified whether [place] or 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] Performed By: #### L [id number] ####[facility] ([facility] [place] [address] RBC (Bld) [#/Vol] 2.93 10*6/uL Low 4.20-5.70 [facility] Comment on above: Order Comment: Pre-o p diagnosis:NSTEMI (non-ST elevated myocardial infarction) (CMS/HCC) [I21.4]Acute non-ST segment elevation myocardial infarction (CMS/HCC) [I21.4]Coronary artery disease, unspecified vessel or lesion type, unspecified whether angina present, unspecified whether [place] or 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] Performed By: #### L [id number] ####[facility] ([facility])[address] [place] [address] WBC (Bld) [#/Vol] 21.16 10*3/uL High 4.00-10.60 [facility] Comment on above: Order Comment: Pre-o p diagnosis:NSTEMI (non-ST elevated myocardial infarction) (CMS/HCC) [I21.4]Acute non-ST segment elevation myocardial infarction (CMS/HCC) [I21.4]Coronary artery disease, unspecified vessel or lesion type, unspecified whether angina present, unspecified whether [place] or 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] Performed By: #### L [id number] ####[facility] (gripNote)[address] [place] [address] CBC WITH AUTO DIFFERENTIALon 04-22-2023 Basophils (Bld) [#/Vol] 0.01 10*3/uL Normal 0.00-0.20 [facility] Comment on above: Performed By: #### L [id number] ####[facility] (gripNote)[address] [place] [address] Basophils/100 WBC (Bld) 0.1 % Normal 0.0-1.0 [facility] Comment on above: Performed By: #### L [id number] ####[facility] (BEAKER)[address] [place] [address] Eosinophils (Bld) [#/Vol] 0.00 10*3/uL Normal 0.00-0.50 [facility] Comment on above: Performed By: #### L [id number] ####[facility] (BEAKER)[address] [place] [address] Eosinophils/100 WBC (Bld) 0.0 % Normal 0.0-6.0 [facility] Comment on above: Performed By: #### L [id number] ####[facility] ([facility] [place] [address] Erythrocyte distribution width (RBC) [Ratio] 13.2 % Normal 11.5-15.0 [facility] Comment on above: Performed By: #### L [id number] ####[facility] ([facility])[address] [place] [address] ERYTHROCYTE MEAN CORPUSCULAR HEMOGLOBIN CONCENTRATION (G/DL) BY AUTOMATED 35.6 g/dL High 32.0-35.0 [facility] Comment on above: Performed By: #### L [id number] ####[facility] ([facility])[address] [place] [address] Hematocrit (Bld) [Volume fraction] 28.4 % Low 39.0-55.0 [facility] Comment on above: Performed By: #### L [id number] ####[facility] (BEAKER)[address] [place] [address] Hemoglobin (Bld) [Mass/Vol] 10.1 g/dL Low 13.0-17.0 [facility] Comment on above: Performed By: #### L [id number] ####[facility] (BEAKER)[address] [place] [address] Immature granulocytes (Bld) [#/Vol] 0.10 10*3/uL Normal 0.00-0.20 [facility] Comment on above: Performed By: #### L [id number] ####[facility] (BEAKER)[address] [place] [address] Immature granulocytes/100 WBC (Bld) 0.7 % Normal 0.0-1.0 [facility] Comment on above: Performed By: #### L [id number] ####[facility] (BEAKER)[address] [place] [address] IMMATURE PLATELET FRACTION % 2.3 % Normal 0.8-6.3 [facility] Comment on above: Performed By: #### L [id number] ####[facility] ([facility] [place] [address] Lymphocytes (Bld) [#/Vol] 0.95 10*3/uL Low 1.20-4.00 [facility] Comment on above: Performed By: #### L [id number] ####[facility] (BEAKER)[address] [place] [address] Lymphocytes/100 WBC (Bld) 6.4 % Low 20.0-45.0 [facility] Comment on above: Performed By: #### L [id number] ####[facility] (BEAKER)[address] [place] [address] MCH (RBC) [Entitic mass] 31.7 pg Normal 27.0-33.0 [facility] Comment on above: Performed By: #### L [id number] ####[facility] (BEAKER)[address] [place] [address] MCV (RBC) [Entitic vol] 89.0 fL Normal 82.0-98.0 [facility] Comment on above: Performed By: #### L [id number] ####[facility] (BEAKER)[address] [place] [address] Monocytes (Bld) [#/Vol] 1.37 10*3/uL High 0.10-1.00 [facility] Comment on above: Performed By: #### L [id number] ####[facility] (BEAKER)[address] [place] [address] Monocytes/100 WBC (Bld) 9.3 % Normal 5.0-12.0 [facility] Comment on above: Performed By: #### L [id number] ####[facility] ([facility])[address] [place] [address] Neutrophils (Bld) [#/Vol] 12.36 10*3/uL High 1.60-7.60 [facility] Comment on above: Performed By: #### L [id number] ####[facility] ([facility])[address] [address] Neutrophils/100 WBC (Bld) 83.5 % High 40.0-72.0 [facility] Comment on above: Performed By: #### L [id number] ####[facility] ([facility])[address] [address] NRBC (PER 100 WBCS) BY AUTOMATED COUNT 0.0 % Normal 0 [facility] Comment on above: Performed By: #### L [id number] ####[facility] ([facility])[address] [address] PLATELETS (10*3/UL) IN BLOOD AUTOMATED COUNT 108 10*3/uL Low 150-400 [facility] Comment on above: Performed By: #### L [id number] ####[facility] ([facility])[address], [place] [address] RBC (Bld) [#/Vol] 3.19 10*6/uL Low 4.20-5.70 [facility] Comment on above: Performed By: #### L [id number] ####[facility] ([facility])[address] [address] WBC (Bld) [#/Vol] 14.79 10*3/uL High 4.00-10.60 [facility] Comment on above: Performed By: #### L [id number] ####[facility] ([facility])[address] [place] [address] CO-OXIMETRYon 04-22-2023 CARBOXYHEMOGLOBIN/ HEMOGLOBIN TOTAL % IN BLOOD 1.5 % Normal [facility] Comment on above: Performed By: #### L [id number] ####[facility] [id number] [place] [address] [place] Hemoglobin (Bld) [Mass/Vol] 12.7 g/dL Normal [facility] Comment on above: Performed By: #### L [id number] ####[facility] [id number] [place] [address] [place] METHEMOGLOBIN/100 IN BLOOD 0.1 % Normal 0.0-1.5 [facility] Comment on above: Performed By: #### L [id number] ####[facility] [id number] [facility] [place] [address] [place] Oxygen saturation in Blood 71.7 % Normal [facility] Comment on above: Performed By: #### L [id number] ####[facility] [id number] [place] [address] [place] OXYGENATED HEMOGLOBIN IN BLOOD 70.6 % Normal [facility] Comment on above: Performed By: #### L [id number] ####[facility] [id number] [facility] [place] [address] [place] CONSULTon 04-22-2023 CONSULT Normal [facility] FIBRINOGENon 04-22-2023 Magnesium [Mass/Vol] 162 mg/dL Normal 150-425 [facility] Comment on above: Order Comment: Pre-o p diagnosis:NSTEMI (non-ST elevated myocardial infarction) (CMS/HCC) [I21.4]Acute non-ST segment elevation myocardial infarction (CMS/HCC) [I21.4]Coronary artery disease, unspecified vessel or lesion type, unspecified whether angina present, unspecified whether [place] or 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] Performed By: #### L [id number] ####[facility] (BEAKER)[address] [place] [address] HEPATIC FUNCTION PANELon Albumin [Mass/Vol] 2.5 g/dL Low 3.5-5.7 [facility] Comment on above: Performed By: #### L [id number] ####[facility] (BEAKER)[address] [place] [address] ALP [Catalytic activity/Vol] 54 U/L Normal 34-104 [facility] Comment on above: Performed By: #### L [id number] ####[facility] ([facility])[address] [place] [address] ALT [Catalytic activity/Vol] 10 U/L Normal 7-52 [facility] Comment on above: Performed By: #### L [id number] ####[facility] ([facility])[address] [place] [address] AST [Catalytic activity/Vol] 34 U/L Normal 13-39 [facility] Comment on above: Performed By: #### L [id number] ####[facility] ([facility])[address] [place] [address] Bilirubin [Mass/Vol] 0.6 mg/dL Normal 0.3-1.0 [facility] Comment on above: Performed By: #### L [id number] ####[facility] ([facility])[address] [place] [address] Magnesium [Mass/Vol] 0.2 mg/dL Normal 0-0.2 [facility] Comment on above: Performed By: #### L [id number] ####[facility] ([facility])[address] [place] [address] Protein [Mass/Vol] 3.7 g/dL Low 6.0-8.3 [facility] Comment on above: Performed By: #### L [id number] ####[facility] ([facility])[address] [place] [address] HISTOLOGY - TISSUE EXAMon LAB AP CASE REPORT Normal [facility] Comment on above: Order Comment: Pre-o p diagnosis:NSTEMI (non-ST elevated myocardial infarction) (CMS/HCC) [I21.4]Acute non-ST segment elevation myocardial infarction (CMS/HCC) [I21.4]Coronary artery disease, unspecified vessel or lesion type, unspecified whether angina present, unspecified whether [place] or 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] Result Comment: Surg ical Pathology Case: [id number] Provider: Chaitanya Ames MD Collected: 04/22/2023 0928Ordering Location: [facility] Main Operating Room Received: 04/22/2023 1923Pathologist: RAHEEM Wilsonpecimens: A) - Lymph Node, ANTERIOR MEDIASTINAL LYMPH NODE B) - Lymph Node, RIGHT INTERNAL MAMMARY LYMPH NODE FOR HISTOLOGY Performed By: #### L [id number] ####[facility] ([facility] [place] [address] LAB AP CLINICAL INFORMATION Normal [facility] Comment on above: Order Comment: Pre-o p diagnosis:NSTEMI (non-ST elevated myocardial infarction) (CMS/HCC) [I21.4]Acute non-ST segment elevation myocardial infarction (CMS/HCC) [I21.4]Coronary artery disease, unspecified vessel or lesion type, unspecified whether angina present, unspecified whether [place] or 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] Result Comment: Post -Op ViofsdzkdF02.4 - NSTEMI (non-ST elevated myocardial infarction) (CMS/HCC) [ICD-10-CM]I21.4 - Acute non-ST segment elevation myocardial infarction (CMS/HCC) [ICD-10-CM]I25.10 - Coronary artery disease, unspecified vessel or lesion type, unspecified whether angina present, unspecified whether [place] or transplanted heart [ICD-10-CM] Performed By: #### L [id number] ####[facility] (BEAKER)[address] [place] [address] LAB AP GROSS DESCRIPTION A. Lymph Node. Normal [facility] Comment on above: Order Comment: Pre-o p diagnosis:NSTEMI (non-ST elevated myocardial infarction) (CMS/HCC) [I21.4]Acute non-ST segment elevation myocardial infarction (CMS/HCC) [I21.4]Coronary artery disease, unspecified vessel or lesion type, unspecified whether angina present, unspecified whether [place] or 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] Result Comment: Rece [...] submitted in 2. The adipose tissue is retained.Jenny Guajardo, Pathologists' AssistantB. Lymph Node.Received in formalin labeled Gui Ortiz, RIGHT INTERNAL MAMMARY LYMPH NODE FOR HISTOLOGY Is a yellow-vargas to pale montejo rubbery and lobulated ragged fragment 1 x 0.6 x 0.4 cm. Within the adipose tissue there is a well-circumscribed 0.4 cm anthracotic lymph node. The specimen is bisected and entirely submitted in a single cassette.Jenny Guajardo, Pathologists' Crane Follower Performed By: #### L [id number] ####[facility] (BEAKER)[address] [facility] [place] [address] LAB AP MICROSCOPIC DESCRIPTION Microscopic examination performed. [facility] Comment on above: Order Comment: Pre-o p diagnosis:NSTEMI (non-ST elevated myocardial infarction) (CMS/HCC) [I21.4]Acute non-ST segment elevation myocardial infarction (CMS/HCC) [I21.4]Coronary artery disease, unspecified vessel or lesion type, unspecified whether angina present, unspecified whether [place] or 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] Performed By: #### L [id number] ####[facility] (BEAKER)[address] [facility] [place] [address] LAB AP REPORT FINAL DIAGNOSIS NARRATIVE [facility] Comment on above: Order Comment: Pre-o p diagnosis:NSTEMI (non-ST elevated myocardial infarction) (CMS/HCC) [I21.4]Acute non-ST segment elevation myocardial infarction (CMS/HCC) [I21.4]Coronary artery disease, unspecified vessel or lesion type, unspecified whether angina present, unspecified whether [place] or 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] Result Comment: A. L ymph node, anterior mediastinal, regional resection: - Two benign lymph nodes with sinus histiocytosis and anthracosis (0/2).B. Lymph node, right internal mammary, regional resection: - One benign lymph node with sinus histiocytosis and anthracosis (0/1). - Minute fragment of skeletal muscle and fibroadipose tissue with focal chronic inflammation. Performed By: #### L [id number] ####[facility] ([facility] [place] [address] HPon 04-22-2023 HP H&P reviewed. The laurie putnam was examined and there are no changes to the H&P. Normal [facility] LACTIC ACID WITH 4 HOUR REFL EXon 04-22-2023 LACTATE (MMOL/L) IN SER/PLAS 2.3 mmol/L High 0.5-2.2 [facility] Comment on above: Order Comment: Pre-o p diagnosis:NSTEMI (non-ST elevated myocardial infarction) (CMS/HCC) [I21.4]Acute non-ST segment elevation myocardial infarction (CMS/HCC) [I21.4]Coronary artery disease, unspecified vessel or lesion type, unspecified whether angina present, unspecified whether [place] or 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] Performed By: #### L [id number] ####[facility] ([facility])[address] [place] [address] LACTIC ACID, PLASMAon 2022 LACTATE (MMOL/L) IN SER/PLAS 2.6 mmol/L Critically high 0.5-2.2 [facility] Comment on above: Result Comment: Prev ious result verified on 04/22/2023 1906 on specimen/case [id number] called with component Lactate for procedure Lactic acid, plasma with value 2.7 mmol/L. Performed By: #### L [id number] ####[facility] (BEAKER)[address] [place] [address] LACTATE (MMOL/L) IN SER/PLAS 2.7 mmol/L Critically high 0.5-2.2 [facility] Comment on above: Performed By: #### L [id number] ####[facility] (BEAKER)[address] [place] [address] MAGNESIUMon 04-22-2023 Magnesium [Mass/Vol] 2.1 mg/dL Normal 1.9-2.7 [facility] Comment on above: Performed By: #### L [id number] ####[facility] (BEAKER)[address] [place] [address] Magnesium [Mass/Vol] 2.4 mg/dL Normal 1.9-2.7 [facility] Comment on above: Order Comment: Pre-o p diagnosis:NSTEMI (non-ST elevated myocardial infarction) (CMS/HCC) [I21.4]Acute non-ST segment elevation myocardial infarction (CMS/HCC) [I21.4]Coronary artery disease, unspecified vessel or lesion type, unspecified whether angina present, unspecified whether [place] or 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] Performed By: #### L [id number] ####[facility] ([facility] [place] [address] OPNOTEon 04-22-2023 OPNOTE Normal [facility] PHOSPHORUSon 04-22-2023 Magnesium [Mass/Vol] 3.6 mg/dL Normal 2.5-5.0 [facility] Comment on above: Performed By: #### L [id number] ####[facility] (BEAKER)[address] [place] [address] POCT ACTIVATED CLOTTING TIME UNSOLICITED RESULTSon 04-22-2023 POC ACTIVATED CLOTTING TIME 132 sec Normal 82-152 [facility] Comment on above: Performed By: #### L [id number] ####[facility] (BEAKER)[address] [place] [address] POC ACTIVATED CLOTTING TIME 341 sec High 82-152 [facility] Comment on above: Performed By: #### L [id number] ####[facility] (BEAKER)[address] [place] [address] POC ACTIVATED CLOTTING TIME 473 sec High 82-152 [facility] Comment on above: Performed By: #### L [id number] ####[facility] (BEAKER)[address] [place] [address] POC ACTIVATED CLOTTING TIME 516 sec High 82-152 [facility] Comment on above: Performed By: #### L [id number] ####[facility] (BEAKER)[address] [place] [address] POC ACTIVATED CLOTTING TIME 460 sec High 82-152 [facility] Comment on above: Performed By: #### L [id number] ####[facility] (BEAKER)[address] [place] [address] POC ACTIVATED CLOTTING TIME 446 sec High 82-152 [facility] Comment on above: Performed By: #### L [id number] ####[facility] (BEAKER)[address] [place] [address] POC ACTIVATED CLOTTING TIME 479 sec High 82-152 [facility] Comment on above: Performed By: #### L [id number] ####[facility] (BEAKER)[address] [place] [address] POC ACTIVATED CLOTTING TIME 447 sec High 82-152 [facility] Comment on above: Performed By: #### L [id number] ####[facility] (BEAKER)[address] [place] [address] POC ACTIVATED CLOTTING TIME 596 sec High 82-152 [facility] Comment on above: Performed By: #### L [id number] ####[facility] (BEAKER)[address] [place] [address] POC ACTIVATED CLOTTING TIME 602 sec High 82-152 [facility] Comment on above: Performed By: #### L [id number] ####[facility] (BEAKER)[address] [place] [address] POC ACTIVATED CLOTTING TIME 143 sec Normal 82-152 [facility] Comment on above: Performed By: #### L [id number] ####[facility] (BEAKER)[address] [place] [address] POCT GLUCOSE METER UNSOLICIT ED RESULTSon 04-22-2023 Glucose [Mass/Vol] 156 mg/dL High 70-105 [facility] Comment on above: Order Comment: Waive d Testing in the ED is performed under the ED CLIA certificate #[id number]. Result Comment: [email or web address] Performed By: #### L [id number] ####[facility] (BEAKER)[address] [place] [address] Glucose [Mass/Vol] 121 mg/dL High 70-105 [facility] Comment on above: Order Comment: Waive d Testing in the ED is performed under the ED CLIA certificate #[id number]. Result Comment: [email or web address] [email or web address] Performed By: #### L [id number] ####[facility] ([facility])[address] [place] [address] Glucose [Mass/Vol] 122 mg/dL High 70-105 [facility] Comment on above: Order Comment: Waive d Testing in the ED is performed under the ED CLIA certificate #[id number]. Result Comment: geetha man Performed By: #### L [id number] ####[facility] ([facility])[address] [place] [address] Glucose [Mass/Vol] 137 mg/dL High 70-105 [facility] Comment on above: Order Comment: Waive d Testing in the ED is performed under the ED CLIA certificate #[id number]. Result Comment: [email or web address] [email or web address] Performed By: #### L [id number] ####[facility] ([facility])[address] [place] [address] Glucose [Mass/Vol] 107 mg/dL High 70-105 [facility] Comment on above: Order Comment: Waive d Testing in the ED is performed under the ED CLIA certificate #[id number]. Result Comment: [email or web address] [email or web address] Performed By: #### L [id number] ####[facility] ([facility])[address] [place] [address] POCT PERFUSION PANEL UNSOLIC ITED RESULTSon 04-22-2023 CO2 [Moles/Vol] 25.0 mmol/L Normal 21.0-29.0 [facility] Comment on above: Performed By: #### L [id number] ####[facility] ([facility])[address] [place] [address] Glucose [Mass/Vol] 195 mg/dL High 70-105 [facility] Comment on above: Performed By: #### L [id number] ####[facility] (BEAKER)[address] [address] HCO3 (Bld) [Moles/Vol] 23.6 mmol/L Normal 23.0-28.0 [facility] Comment on above: Performed By: #### L [id number] ####[facility] ([facility] [address] Hematocrit (Bld) [Volume fraction] 27 % Low 38-51 [facility] Comment on above: Performed By: #### L [id number] ####[facility] ([facility] [address] Hemoglobin (Bld) [Mass/Vol] 9.2 g/dL Low 12.0-17.0 [facility] Comment on above: Performed By: #### L [id number] ####[facility] ([facility] [address] POCT BASE EXCESS -3.0 mmol/L Low -2.0-3.0 [facility] Comment on above: Performed By: #### L [id number] ####[facility] ([facility])[address] [address] POCT IONIZED CALCIUM 1.35 mmol/L High 1.12-1.32 [facility] Comment on above: Performed By: #### L [id number] ####[facility] (BEAKER)[address] [address] POCT PCO2 47.6 mmHg Normal 41.0-51.0 [facility] Comment on above: Performed By: #### L [id number] ####[facility] (BEAKER)[address] [address] POCT PH 7.30 Low 7.31-7.41 [facility] Comment on above: Performed By: #### L [id number] ####[facility] (BEAKER)[address] [address] POCT PO2 355 mmHg High 80-105 [facility] Comment on above: Performed By: #### L [id number] ####[facility] (BEAKER)[address] [place] [address] POCT SO2 100 % High 95-98 [facility] Comment on above: Performed By: #### L [id number] ####[facility] (BEAKER)[address] [place] [address] Potassium [Moles/Vol] 3.2 mmol/L Low 3.5-4.9 [facility] Comment on above: Performed By: #### L [id number] ####[facility] (BEAKER)[address] [place] [address] Sodium [Moles/Vol] 146 mmol/L Normal 138.0-146.0 [facility] Comment on above: Performed By: #### L [id number] ####[facility] (BEAKER)[address] [place] [address] CO2 [Moles/Vol] 26.0 mmol/L Normal 21.0-29.0 [facility] Comment on above: Performed By: #### L [id number] ####[facility] (BEAKER)[address] [place] [address] Glucose [Mass/Vol] 196 mg/dL High 70-105 [facility] Comment on above: Performed By: #### L [id number] ####[facility] (BEAKER)[address] [place] [address] HCO3 (Bld) [Moles/Vol] 24.2 mmol/L Normal 23.0-28.0 [facility] Comment on above: Performed By: #### L [id number] ####[facility] (BEAKER)[address] [place] [address] Hematocrit (Bld) [Volume fraction] 21 % Low 38-51 [facility] Comment on above: Performed By: #### L [id number] ####[facility] (BEAKER)[address] [place] [address] Hemoglobin (Bld) [Mass/Vol] 7.1 g/dL Low 12.0-17.0 [facility] Comment on above: Performed By: #### L [id number] ####[facility] (BEAKER)[address] [place] [address] POCT BASE EXCESS -3.0 mmol/L Low -2.0-3.0 [facility] Comment on above: Performed By: #### L [id number] ####[facility] (BEAKER)[address] [place] [address] POCT IONIZED CALCIUM 1.19 mmol/L Normal 1.12-1.32 [facility] Comment on above: Performed By: #### L [id number] ####[facility] (BEAKER)[address] [place] [address] POCT PCO2 52.4 mmHg High 41.0-51.0 [facility] Comment on above: Performed By: #### L [id number] ####[facility] (BEAKER)[address] [place] [address] POCT PH 7.27 Low 7.31-7.41 [facility] Comment on above: Performed By: #### L [id number] ####[facility] (BEAKER)[address] [place] [address] POCT PO2 488 mmHg High 80-105 [facility] Comment on above: Performed By: #### L [id number] ####[facility] (BEAKER)[address] [place] [address] POCT SO2 100 % High 95-98 [facility] Comment on above: Performed By: #### L [id number] ####[facility] (BEAKER)[address] [place] [address] Potassium [Moles/Vol] 3.7 mmol/L Normal 3.5-4.9 [facility] Comment on above: Performed By: #### L [id number] ####[facility] (BEAKER)[address] [place] [address] Sodium [Moles/Vol] 145 mmol/L Normal 138.0-146.0 [facility] Comment on above: Performed By: #### L [id number] ####[facility] (BEAKER)[address] [place] [address] CO2 [Moles/Vol] 24.0 mmol/L Normal 21.0-29.0 [facility] Comment on above: Performed By: #### L [id number] ####[facility] (BEAKER)[address] [place] [address] Glucose [Mass/Vol] 177 mg/dL High 70-105 [facility] Comment on above: Performed By: #### L [id number] ####[facility] (BEAKER)[address] [place] [address] HCO3 (Bld) [Moles/Vol] 22.2 mmol/L Low 23.0-28.0 [facility] Comment on above: Performed By: #### L [id number] ####[facility] (BEAKER)[address] [place] [address] Hematocrit (Bld) [Volume fraction] 21 % Low 38-51 [facility] Comment on above: Performed By: #### L [id number] ####[facility] (BEAKER)[address] [place] [address] Hemoglobin (Bld) [Mass/Vol] 7.1 g/dL Low 12.0-17.0 [facility] Comment on above: Performed By: #### L [id number] ####[facility] (BEAKER)[address] [place] [address] POCT BASE EXCESS -4.0 mmol/L Low -2.0-3.0 [facility] Comment on above: Performed By: #### L [id number] ####[facility] (BEAKER)[address] [place] [address] POCT IONIZED CALCIUM 1.32 mmol/L Normal 1.12-1.32 [facility] Comment on above: Performed By: #### L [id number] ####[facility] (BEAKER)[address] [place] [address] POCT PCO2 44.7 mmHg Normal 41.0-51.0 [facility] Comment on above: Performed By: #### L [id number] ####[facility] (BEAKER)[address] [place] [address] POCT PH 7.30 Low 7.31-7.41 [facility] Comment on above: Performed By: #### L [id number] ####[facility] (BEAKER)[address] [place] [address] POCT PO2 449 mmHg High 80-105 [facility] Comment on above: Performed By: #### L [id number] ####[facility] (BEAKER)[address] [place] [address] POCT SO2 100 % High 95-98 [facility] Comment on above: Performed By: #### L [id number] ####[facility] (BEAKER)[address] [place] [address] Potassium [Moles/Vol] 4.4 mmol/L Normal 3.5-4.9 [facility] Comment on above: Performed By: #### L [id number] ####[facility] (BEAKER)[address] [place] [address] Sodium [Moles/Vol] 141 mmol/L Normal 138.0-146.0 [facility] Comment on above: Performed By: #### L [id number] ####[facility] (BEAKER)[address] [place] [address] CO2 [Moles/Vol] 25.0 mmol/L Normal 21.0-29.0 [facility] Comment on above: Performed By: #### L [id number] ####[facility] (BEAKER)[address] [place] [address] Glucose [Mass/Vol] 171 mg/dL High 70-105 [facility] Comment on above: Performed By: #### L [id number] ####[facility] (BEAKER)[address] [address] HCO3 (Bld) [Moles/Vol] 24.0 mmol/L Normal 23.0-28.0 [facility] Comment on above: Performed By: #### L [id number] ####[facility] (BEAKER)[address] [address] Hematocrit (Bld) [Volume fraction] 26 % Low 38-51 [facility] Comment on above: Performed By: #### L [id number] ####[facility] (BEAKER)[address] [address] Hemoglobin (Bld) [Mass/Vol] 8.8 g/dL Low 12.0-17.0 [facility] Comment on above: Performed By: #### L [id number] ####[facility] ([facility] [address] POCT BASE EXCESS -1.0 mmol/L Normal -2.0-3.0 [facility] Comment on above: Performed By: #### L [id number] ####[facility] (BEAKER)[address] [address] POCT IONIZED CALCIUM 1.06 mmol/L Low 1.12-1.32 [facility] Comment on above: Performed By: #### L [id number] ####[facility] (BEAKER)[address] [address] POCT PCO2 38.1 mmHg Low 41.0-51.0 [facility] Comment on above: Performed By: #### L [id number] ####[facility] (BEAKER)[address] [address] POCT PH 7.41 Normal 7.31-7.41 [facility] Comment on above: Performed By: #### L [id number] ####[facility] (BEAKER)[address] [address] POCT PO2 534 mmHg High 80-105 [facility] Comment on above: Performed By: #### L [id number] ####[facility] (BEAKER)[address] [place] [address] POCT SO2 100 % High 95-98 [facility] Comment on above: Performed By: #### L [id number] ####[facility] (BEAKER)[address] [place] [address] Potassium [Moles/Vol] 4.1 mmol/L Normal 3.5-4.9 [facility] Comment on above: Performed By: #### L [id number] ####[facility] (BEAKER)[address] [place] [address] Sodium [Moles/Vol] 141 mmol/L Normal 138.0-146.0 [facility] Comment on above: Performed By: #### L [id number] ####[facility] (BEAKER)[address] [place] [address] CO2 [Moles/Vol] 27.0 mmol/L Normal 21.0-29.0 [facility] Comment on above: Performed By: #### L [id number] ####[facility] (BEAKER)[address] [place] [address] Glucose [Mass/Vol] 187 mg/dL High 70-105 [facility] Comment on above: Performed By: #### L [id number] ####[facility] (BEAKER)[address] [place] [address] HCO3 (Bld) [Moles/Vol] 25.8 mmol/L Normal 23.0-28.0 [facility] Comment on above: Performed By: #### L [id number] ####[facility] (BEAKER)[address] [place] [address] Hematocrit (Bld) [Volume fraction] 26 % Low 38-51 [facility] Comment on above: Performed By: #### L [id number] ####[facility] (BEAKER)[address] [place] [address] Hemoglobin (Bld) [Mass/Vol] 8.8 g/dL Low 12.0-17.0 [facility] Comment on above: Performed By: #### L [id number] ####[facility] ([facility] [address] POCT BASE EXCESS 1.0 mmol/L Normal -2.0-3.0 [facility] Comment on above: Performed By: #### L [id number] ####[facility] ([facility] [address] POCT IONIZED CALCIUM 1.06 mmol/L Low 1.12-1.32 [facility] Comment on above: Performed By: #### L [id number] ####[facility] ([facility])[address] [address] POCT PCO2 40.4 mmHg Low 41.0-51.0 [facility] Comment on above: Performed By: #### L [id number] ####[facility] ([facility])[address] [address] POCT PH 7.41 Normal 7.31-7.41 [facility] Comment on above: Performed By: #### L [id number] ####[facility] ([facility])[address] [address] POCT PO2 506 mmHg High 80-105 [facility] Comment on above: Performed By: #### L [id number] ####[facility] ([facility])[address], [place] [address] POCT SO2 100 % High 95-98 [facility] Comment on above: Performed By: #### L [id number] ####[facility] ([facility])[address], [place] [address] Potassium [Moles/Vol] 4.2 mmol/L Normal 3.5-4.9 [facility] Comment on above: Performed By: #### L [id number] ####[facility] ([facility] [place] [address] Sodium [Moles/Vol] 141 mmol/L Normal 138.0-146.0 [facility] Comment on above: Performed By: #### L [id number] ####[facility] (BEAKER)[address] [place] [address] CO2 [Moles/Vol] 23.0 mmol/L Normal 21.0-29.0 [facility] Comment on above: Performed By: #### L [id number] ####[facility] (BEAKER)[address] [place] [address] Glucose [Mass/Vol] 211 mg/dL High 70-105 [facility] Comment on above: Performed By: #### L [id number] ####[facility] (BEAKER)[address] [place] [address] HCO3 (Bld) [Moles/Vol] 22.1 mmol/L Low 23.0-28.0 [facility] Comment on above: Performed By: #### L [id number] ####[facility] (BEAKER)[address] [place] [address] Hematocrit (Bld) [Volume fraction] 28 % Low 38-51 [facility] Comment on above: Performed By: #### L [id number] ####[facility] (BEAKER)[address] [place] [address] Hemoglobin (Bld) [Mass/Vol] 9.5 g/dL Low 12.0-17.0 [facility] Comment on above: Performed By: #### L [id number] ####[facility] (BEAKER)[address] [place] [address] POCT BASE EXCESS -3.0 mmol/L Low -2.0-3.0 [facility] Comment on above: Performed By: #### L [id number] ####[facility] (BEAKER)[address] [place] [address] POCT IONIZED CALCIUM 1.08 mmol/L Low 1.12-1.32 [facility] Comment on above: Performed By: #### L [id number] ####[facility] (BEAKER)[address] [place] [address] POCT PCO2 38.1 mmHg Low 41.0-51.0 [facility] Comment on above: Performed By: #### L [id number] ####[facility] (BEAKER)[address] [place] [address] POCT PH 7.37 Normal 7.31-7.41 [facility] Comment on above: Performed By: #### L [id number] ####[facility] (BEAKER)[address] [place] [address] POCT PO2 418 mmHg High 80-105 [facility] Comment on above: Performed By: #### L [id number] ####[facility] (BEAKER)[address] [place] [address] POCT SO2 100 % High 95-98 [facility] Comment on above: Performed By: #### L [id number] ####[facility] (BEAKER)[address] [place] [address] Potassium [Moles/Vol] 4.7 mmol/L Normal 3.5-4.9 [facility] Comment on above: Performed By: #### L [id number] ####[facility] (BEAKER)[address] [place] [address] Sodium [Moles/Vol] 137 mmol/L Low 138.0-146.0 [facility] Comment on above: Performed By: #### L [id number] ####[facility] (BEAKER)[address] [place] [address] CO2 [Moles/Vol] 24.0 mmol/L Normal 21.0-29.0 [facility] Comment on above: Performed By: #### L [id number] ####[facility] (BEAKER)[address] [place] [address] Glucose [Mass/Vol] 203 mg/dL High 70-105 [facility] Comment on above: Performed By: #### L [id number] ####[facility] (BEAKER)[address] [address] HCO3 (Bld) [Moles/Vol] 22.6 mmol/L Low 23.0-28.0 [facility] Comment on above: Performed By: #### L [id number] ####[facility] (BEAKER)[address] [address] Hematocrit (Bld) [Volume fraction] 26 % Low 38-51 [facility] Comment on above: Performed By: #### L [id number] ####[facility] (BEAKER)[address] [address] Hemoglobin (Bld) [Mass/Vol] 8.8 g/dL Low 12.0-17.0 [facility] Comment on above: Performed By: #### L [id number] ####[facility] (BEAKER)[address] [address] POCT BASE EXCESS -2.0 mmol/L Normal -2.0-3.0 [facility] Comment on above: Performed By: #### L [id number] ####[facility] (BEAKER)[address] [address] POCT IONIZED CALCIUM 1.06 mmol/L Low 1.12-1.32 [facility] Comment on above: Performed By: #### L [id number] ####[facility] (BEAKER)[address] [address] POCT PCO2 38.7 mmHg Low 41.0-51.0 [facility] Comment on above: Performed By: #### L [id number] ####[facility] (BEAKER)[address] [address] POCT PH 7.38 Normal 7.31-7.41 [facility] Comment on above: Performed By: #### L [id number] ####[facility] (BEAKER)[address] [address] POCT PO2 377 mmHg High 80-105 [facility] Comment on above: Performed By: #### L [id number] ####[facility] (BEAKER)[address] [place] [address] POCT SO2 100 % High 95-98 [facility] Comment on above: Performed By: #### L [id number] ####[facility] (BEAKER)[address] [place] [address] Potassium [Moles/Vol] 5.0 mmol/L High 3.5-4.9 [facility] Comment on above: Performed By: #### L [id number] ####[facility] (BEAKER)[address] [place] [address] Sodium [Moles/Vol] 137 mmol/L Low 138.0-146.0 [facility] Comment on above: Performed By: #### L [id number] ####[facility] (BEAKER)[address] [place] [address] CO2 [Moles/Vol] 24.0 mmol/L Normal 21.0-29.0 [facility] Comment on above: Performed By: #### L [id number] ####[facility] (BEAKER)[address] [place] [address] Glucose [Mass/Vol] 193 mg/dL High 70-105 [facility] Comment on above: Performed By: #### L [id number] ####[facility] (BEAKER)[address] [place] [address] HCO3 (Bld) [Moles/Vol] 23.3 mmol/L Normal 23.0-28.0 [facility] Comment on above: Performed By: #### L [id number] ####[facility] (BEAKER)[address] [place] [address] Hematocrit (Bld) [Volume fraction] 28 % Low 38-51 [facility] Comment on above: Performed By: #### L [id number] ####[facility] (BEAKER)[address] [place] [address] Hemoglobin (Bld) [Mass/Vol] 9.5 g/dL Low 12.0-17.0 [facility] Comment on above: Performed By: #### L [id number] ####[facility] (BEAKER)[address] [address] POCT BASE EXCESS -2.0 mmol/L Normal -2.0-3.0 [facility] Comment on above: Performed By: #### L [id number] ####[facility] (BEAKER)[address] [address] POCT IONIZED CALCIUM 1.07 mmol/L Low 1.12-1.32 [facility] Comment on above: Performed By: #### L [id number] ####[facility] ([facility] [address] POCT PCO2 38.7 mmHg Low 41.0-51.0 [facility] Comment on above: Performed By: #### L [id number] ####[facility] ([facility], [place] [address] POCT PH 7.39 Normal 7.31-7.41 [facility] Comment on above: Performed By: #### L [id number] ####[facility] (BEAKER)[address] [place] [address] POCT PO2 367 mmHg High 80-105 [facility] Comment on above: Performed By: #### L [id number] ####[facility] ([facility] [place] [address] POCT SO2 100 % High 95-98 [facility] Comment on above: Performed By: #### L [id number] ####[facility] (BEAKER)[address] [place] [address] Potassium [Moles/Vol] 5.6 mmol/L High 3.5-4.9 [facility] Comment on above: Performed By: #### L [id number] ####[facility] (BEAKER)[address] [place] [address] Sodium [Moles/Vol] 138 mmol/L Normal 138.0-146.0 [facility] Comment on above: Performed By: #### L [id number] ####[facility] (BEAKER)[address] [place] [address] CO2 [Moles/Vol] 25.0 mmol/L Normal 21.0-29.0 [facility] Comment on above: Performed By: #### L [id number] ####[facility] (BEAKER)[address] [place] [address] Glucose [Mass/Vol] 165 mg/dL High 70-105 [facility] Comment on above: Performed By: #### L [id number] ####[facility] (BEAKER)[address] [place] [address] HCO3 (Bld) [Moles/Vol] 23.5 mmol/L Normal 23.0-28.0 [facility] Comment on above: Performed By: #### L [id number] ####[facility] (BEAKER)[address] [place] [address] Hematocrit (Bld) [Volume fraction] 27 % Low 38-51 [facility] Comment on above: Performed By: #### L [id number] ####[facility] (BEAKER)[address] [place] [address] Hemoglobin (Bld) [Mass/Vol] 9.2 g/dL Low 12.0-17.0 [facility] Comment on above: Performed By: #### L [id number] ####[facility] (BEAKER)[address] [place] [address] POCT BASE EXCESS -1.0 mmol/L Normal -2.0-3.0 [facility] Comment on above: Performed By: #### L [id number] ####[facility] (BEAKER)[address] [place] [address] POCT IONIZED CALCIUM 1.08 mmol/L Low 1.12-1.32 [facility] Comment on above: Performed By: #### L [id number] ####[facility] (BEAKER)[address] [place] [address] POCT PCO2 38.4 mmHg Low 41.0-51.0 [facility] Comment on above: Performed By: #### L [id number] ####[facility] (BEAKER)[address] [place] [address] POCT PH 7.39 Normal 7.31-7.41 [facility] Comment on above: Performed By: #### L [id number] ####[facility] (BEAKER)[address] [place] [address] POCT PO2 387 mmHg High 80-105 [facility] Comment on above: Performed By: #### L [id number] ####[facility] (BEAKER)[address] [place] [address] POCT SO2 100 % High 95-98 [facility] Comment on above: Performed By: #### L [id number] ####[facility] (BEAKER)[address] [place] [address] Potassium [Moles/Vol] 5.9 mmol/L High 3.5-4.9 [facility] Comment on above: Performed By: #### L [id number] ####[facility] (BEAKER)[address] [place] [address] Sodium [Moles/Vol] 138 mmol/L Normal 138.0-146.0 [facility] Comment on above: Performed By: #### L [id number] ####[facility] (BEAKER)[address] [place] [address] CO2 [Moles/Vol] 26.0 mmol/L Normal 21.0-29.0 [facility] Comment on above: Performed By: #### L [id number] ####[facility] (BEAKER)[address] [place] [address] Glucose [Mass/Vol] 142 mg/dL High 70-105 [facility] Comment on above: Performed By: #### L [id number] ####[facility] (BEAKER)[address] [address] HCO3 (Bld) [Moles/Vol] 24.5 mmol/L Normal 23.0-28.0 [facility] Comment on above: Performed By: #### L [id number] ####[facility] (BEAKER)[address] [address] Hematocrit (Bld) [Volume fraction] 24 % Low 38-51 [facility] Comment on above: Performed By: #### L [id number] ####[facility] (BEAKER)[address] [address] Hemoglobin (Bld) [Mass/Vol] 8.2 g/dL Low 12.0-17.0 [facility] Comment on above: Performed By: #### L [id number] ####[facility] (BEAKER)[address] [address] POCT BASE EXCESS -1.0 mmol/L Normal -2.0-3.0 [facility] Comment on above: Performed By: #### L [id number] ####[facility] (BEAKER)[address] [address] POCT IONIZED CALCIUM 0.99 mmol/L Low 1.12-1.32 [facility] Comment on above: Performed By: #### L [id number] ####[facility] (BEAKER)[address] [place] [address] POCT PCO2 44.6 mmHg Normal 41.0-51.0 [facility] Comment on above: Performed By: #### L [id number] ####[facility] (BEAKER)[address], [place] [address] POCT PH 7.35 Normal 7.31-7.41 [facility] Comment on above: Performed By: #### L [id number] ####[facility] (BEAKER)[address] [place] [address] POCT PO2 462 mmHg High 80-105 [facility] Comment on above: Performed By: #### L [id number] ####[facility] (BEAKER)[address] [place] [address] POCT SO2 100 % High 95-98 [facility] Comment on above: Performed By: #### L [id number] ####[facility] (BEAKER)[address] [place] [address] Potassium [Moles/Vol] 6.2 mmol/L Critically high 3.5-4.9 [facility] Comment on above: Performed By: #### L [id number] ####[facility] (BEAKER)[address] [place] [address] Sodium [Moles/Vol] 136 mmol/L Low 138.0-146.0 [facility] Comment on above: Performed By: #### L [id number] ####[facility] (BEAKER)[address] [place] [address] CO2 [Moles/Vol] 24.0 mmol/L Normal 21.0-29.0 [facility] Comment on above: Performed By: #### L [id number] ####[facility] (BEAKER)[address] [place] [address] Glucose [Mass/Vol] 151 mg/dL High 70-105 [facility] Comment on above: Performed By: #### L [id number] ####[facility] (BEAKER)[address] [place] [address] HCO3 (Bld) [Moles/Vol] 22.6 mmol/L Low 23.0-28.0 [facility] Comment on above: Performed By: #### L [id number] ####[facility] (BEAKER)[address] [place] [address] Hematocrit (Bld) [Volume fraction] 38 % Normal 38-51 [facility] Comment on above: Performed By: #### L [id number] ####[facility] (BEAKER)[address] [place] [address] Hemoglobin (Bld) [Mass/Vol] 12.9 g/dL Normal 12.0-17.0 [facility] Comment on above: Performed By: #### L [id number] ####[facility] (BEAKER)[address] [address] POCT BASE EXCESS -4.0 mmol/L Low -2.0-3.0 [facility] Comment on above: Performed By: #### L [id number] ####[facility] (BEAKER)[address] [address] POCT IONIZED CALCIUM 1.25 mmol/L Normal 1.12-1.32 [facility] Comment on above: Performed By: #### L [id number] ####[facility] (BEAKER)[address] [address] POCT PCO2 47.5 mmHg Normal 41.0-51.0 [facility] Comment on above: Performed By: #### L [id number] ####[facility] (BEAKER)[address] [address] POCT PH 7.29 Low 7.31-7.41 [facility] Comment on above: Performed By: #### L [id number] ####[facility] (BEAKER)[address] [address] POCT PO2 336 mmHg High 80-105 [facility] Comment on above: Performed By: #### L [id number] ####[facility] (BEAKER)[address] [address] POCT SO2 100 % High 95-98 [facility] Comment on above: Performed By: #### L [id number] ####[facility] (BEAKER)[address], [place] [address] Potassium [Moles/Vol] 4.4 mmol/L Normal 3.5-4.9 [facility] Comment on above: Performed By: #### L [id number] ####[facility] (BEAKER)[address] [address] Sodium [Moles/Vol] 139 mmol/L Normal 138.0-146.0 [facility] Comment on above: Performed By: #### L [id number] ####[facility] (BEAKER)[address] [place] [address] CO2 [Moles/Vol] 23.0 mmol/L Normal 21.0-29.0 [facility] Comment on above: Performed By: #### L [id number] ####[facility] (BEAKER)[address] [place] [address] Glucose [Mass/Vol] 123 mg/dL High 70-105 [facility] Comment on above: Performed By: #### L [id number] ####[facility] (BEAKER)[address] [place] [address] HCO3 (Bld) [Moles/Vol] 22.1 mmol/L Low 23.0-28.0 [facility] Comment on above: Performed By: #### L [id number] ####[facility] (BEAKER)[address] [place] [address] Hematocrit (Bld) [Volume fraction] 38 % Normal 38-51 [facility] Comment on above: Performed By: #### L [id number] ####[facility] (BEAKER)[address] [place] [address] Hemoglobin (Bld) [Mass/Vol] 12.9 g/dL Normal 12.0-17.0 [facility] Comment on above: Performed By: #### L [id number] ####[facility] (BEAKER)[address] [place] [address] POCT BASE EXCESS -3.0 mmol/L Low -2.0-3.0 [facility] Comment on above: Performed By: #### L [id number] ####[facility] (BEAKER)[address] [place] [address] POCT IONIZED CALCIUM 1.25 mmol/L Normal 1.12-1.32 [facility] Comment on above: Performed By: #### L [id number] ####[facility] [place] [address] POCT PCO2 39.3 mmHg Low 41.0-51.0 [facility] Comment on above: Performed By: #### L [id number] ####[facility] [place] [address] POCT PH 7.36 Normal 7.31-7.41 [facility] Comment on above: Performed By: #### L [id number] ####[facility] ([facility])[address] [place] [address] POCT PO2 412 mmHg High 80-105 [facility] Comment on above: Performed By: #### L [id number] ####[facility] ([facility])[address] [place] [address] POCT SO2 100 % High 95-98 [facility] Comment on above: Performed By: #### L [id number] ####[facility] ([facility])[address] [place] [address] Potassium [Moles/Vol] 3.8 mmol/L Normal 3.5-4.9 [facility] Comment on above: Performed By: #### L [id number] ####[facility] ([facility])[address] [place] [address] Sodium [Moles/Vol] 140 mmol/L Normal 138.0-146.0 [facility] Comment on above: Performed By: #### L [id number] ####[facility] ([facility])[address] [place] [address] PROTIME-INRon 04-22-2023 INR IN PPP BY COAGULATION ASSAY 1.60 High 0.90-1.10 [facility] Comment on above: Result Comment: [facility] P RECOMMENDED INR FOR [facility] THERAPY CONDITION INRPROPHYLAXIS OF VENOUS THROMBOSIS 2-3(HIGH-RISK SURGERY)TREATMENT OF VENOUS THROMBOSIS 2-3TREATMENT OF PULMONARY EMBOLISM 2-3PREVENTION OF SYSTEMIC EMBOLISM: 2-3 ACUTE MYOCARDIAL INFARCTION TISSUE HEART VALVES VALVULAR HEART DISEASE ATRIAL FIBRILLATION RECURRENT SYSTEMIC EMBOLISMMECHANICAL HEART VALVE 2.5-3.5 FROM: ORAL ANTICOAGULANTS. MECHANISM OF ACTION, CLINICAL EFFECTIVENESS, AND OPTIMAL THERAPEUTIC RANGE. CHEST 1995;108:[id number]. Performed By: #### L [id number] ####[facility] ([facility]ER)[address] [facility] [place] [address] PROTHROMBIN TIME (PT) IN PPP BY COAGULATION ASSAY 19.1 Seconds High 12.3-14.8 [facility] Comment on above: Performed By: #### L [id number] ####[facility] (BEAKER)[address] [facility] [place] [address] INR IN PPP BY COAGULATION ASSAY 1.72 High 0.90-1.10 [facility] Comment on above: Result Comment: [facility] CONDITION INRPROPHYLAXIS OF VENOUS THROMBOSIS 2-3(HIGH-RISK SURGERY)TREATMENT OF VENOUS THROMBOSIS 2-3TREATMENT OF PULMONARY EMBOLISM 2-3PREVENTION OF SYSTEMIC EMBOLISM: 2-3 ACUTE MYOCARDIAL INFARCTION TISSUE HEART VALVES VALVULAR HEART DISEASE ATRIAL FIBRILLATION RECURRENT SYSTEMIC EMBOLISMMECHANICAL HEART VALVE 2.5-3.5 FROM: ORAL ANTICOAGULANTS. MECHANISM OF ACTION, CLINICAL EFFECTIVENESS, AND OPTIMAL THERAPEUTIC RANGE. CHEST 1995;108:231S-246S. Performed By: #### L [id number] ####[facility] (gripNote)3000 [place] [address] PROTHROMBIN TIME (PT) IN PPP BY COAGULATION ASSAY 20.2 Seconds High 12.3-14.8 [facility] Comment on above: Performed By: #### L [id number] ####[facility] ([facility])[address] [place] [address] INR IN PPP BY COAGULATION ASSAY 2.00 High 0.90-1.10 [facility] Comment on above: Order Comment: Pre-o p diagnosis:NSTEMI (non-ST elevated myocardial infarction) (CMS/HCC) [I21.4]Acute non-ST segment elevation myocardial infarction (CMS/HCC) [I21.4]Coronary artery disease, unspecified vessel or lesion type, unspecified whether angina present, unspecified whether [place] or 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] Result Comment: [facility] P RECOMMENDED INR FOR WARFARIN THERAPY CONDITION INRPROPHYLAXIS OF VENOUS THROMBOSIS 2-3(HIGH-RISK SURGERY)TREATMENT OF VENOUS THROMBOSIS 2-3TREATMENT OF PULMONARY EMBOLISM 2-3PREVENTION OF SYSTEMIC EMBOLISM: 2-3 ACUTE MYOCARDIAL INFARCTION TISSUE HEART VALVES VALVULAR HEART DISEASE ATRIAL FIBRILLATION RECURRENT SYSTEMIC EMBOLISMMECHANICAL HEART VALVE 2.5-3.5 FROM: ORAL ANTICOAGULANTS. MECHANISM OF ACTION, CLINICAL EFFECTIVENESS, AND OPTIMAL THERAPEUTIC RANGE. CHEST 1995;108:231S-246S. Performed By: #### L [id number] ####[facility] (BEAKER)[address] [facility] [address] PROTHROMBIN TIME (PT) IN PPP BY COAGULATION ASSAY 22.8 Seconds High 12.3-14.8 [facility] Comment on above: Order Comment: Pre-o p diagnosis:NSTEMI (non-ST elevated myocardial infarction) (CMS/HCC) [I21.4]Acute non-ST segment elevation myocardial infarction (CMS/HCC) [I21.4]Coronary artery disease, unspecified vessel or lesion type, unspecified whether angina present, unspecified whether [place] or 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] Performed By: #### L [id number] ####[facility] ([facility])[address] [facility] [address] 36on 04-21-2023 36 Called patient and l eft voicemail. Updated NPO after midnight and not to take any medications in the AM. Surgery scheduled for 0730am. Normal [facility] ANESon 04-21-2023 ANES [facility] Telephoneon 04-21-2023 Telephone [phone] Sarina Ortizan 1955 M Date Provider Department [place] 04/21/2023 KAREY MAGANA [facility] [place] [facility] Family History Family history unknown: Yes [facility] APTTon 04-09-2023 ACTIVATED PARTIAL THROMBOPLASTIN TIME IN PPP BY COAGULATION ASSAY 34.7 Seconds Normal 25.0-35.0 [facility] Comment on above: Result Comment: Clin ical significance of the APTT is questionable in the presence of heparin. Performed By: #### L [id number] ####[facility] ([facility] [address] BASIC METABOLIC PANELon 03-18 Anion gap [Moles/Vol] 11 mmol/L Normal 7-20 [facility] Comment on above: Performed By: #### L [id number] ####[facility] ([facility] [facility] [address] Calcium [Mass/Vol] 9.8 mg/dL Normal 8.6-10.3 [facility] Comment on above: Performed By: #### L [id number] ####[facility] (BEAKER)[address] [place] [address] Chloride [Moles/Vol] 105 mmol/L Normal 98-107 [facility] Comment on above: Performed By: #### L [id number] ####[facility] (BEAKER)[address] [place] [address] CO2 [Moles/Vol] 25 mmol/L Normal 21-31 [facility] Comment on above: Performed By: #### L [id number] ####[facility] (BEAKER)[address] [place] [address] Creatinine [Mass/Vol] 0.91 mg/dL Normal 0.70-1.30 [facility] Comment on above: Performed By: #### L [id number] ####[facility] ([facility] [place] [address] GLOMERULAR FILTRATION RATE ML/MIN/1.73 SQ M.PREDICTED 91.2 mL/min/1.73m*2 Normal >60.0 [facility] Comment on above: Result Comment: The [facility]???s estimated glomerular filtration rate (eGFR) will no [...] of individuals. Performed By: #### L [id number] ####[facility] (BEAKER)[address] [place] [address] Glucose [Mass/Vol] 105 mg/dL High 70-100 [facility] Comment on above: Performed By: #### L [id number] ####[facility] (BEAKER)[address] [place] [address] Potassium [Moles/Vol] 3.9 mmol/L Normal 3.5-5.1 [facility] Comment on above: Performed By: #### L [id number] ####[facility] ([facility])[address] [place] [address] Sodium [Moles/Vol] 137 mmol/L Normal 136-145 [facility] Comment on above: Performed By: #### L [id number] ####[facility] ([facility])[address] [place] [address] Urea nitrogen [Mass/Vol] 15 mg/dL Normal 7-25 [facility] Comment on above: Performed By: #### L [id number] ####[facility] ([facility])[address] [place] [address] UREA NITROGEN/CREATININ E (MASS RATIO) IN SER/PLAS 16.5 Normal [facility] Comment on above: Performed By: #### L [id number] ####[facility] ([facility])[address] [place] [address] CBC WITH AUTO DIFFERENTIALon 04-09-2023 Basophils (Bld) [#/Vol] 0.05 10*3/uL Normal 0.00-0.20 [facility] Comment on above: Performed By: #### L [id number] ####[facility] ([facility])[address] [place] [address] Basophils/100 WBC (Bld) 0.8 % Normal 0.0-1.0 [facility] Comment on above: Performed By: #### L [id number] ####[facility] ([facility])[address] [place] [address] Eosinophils (Bld) [#/Vol] 0.09 10*3/uL Normal 0.00-0.50 [facility] Comment on above: Performed By: #### L [id number] ####[facility] ([facility])[address] [place] [address] Eosinophils/100 WBC (Bld) 1.4 % Normal 0.0-6.0 [facility] Comment on above: Performed By: #### L [id number] ####[facility] (BEAKER)[address] [place] [address] Erythrocyte distribution width (RBC) [Ratio] 13.1 % Normal 11.5-15.0 [facility] Comment on above: Performed By: #### L [id number] ####[facility] (BEAKER)[address] [place] [address] ERYTHROCYTE MEAN CORPUSCULAR HEMOGLOBIN CONCENTRATION (G/DL) BY AUTOMATED 33.3 g/dL Normal 32.0-35.0 [facility] Comment on above: Performed By: #### L [id number] ####[facility] ([facility])[address] [place] [address] Hematocrit (Bld) [Volume fraction] 43.0 % Normal 39.0-55.0 [facility] Comment on above: Performed By: #### L [id number] ####[facility] ([facility])[address] [place] [address] Hemoglobin (Bld) [Mass/Vol] 14.3 g/dL Normal 13.0-17.0 [facility] Comment on above: Performed By: #### L [id number] ####[facility] ([facility])[address] [place] [address] Immature granulocytes (Bld) [#/Vol] 0.03 10*3/uL Normal 0.00-0.20 [facility] Comment on above: Performed By: #### L [id number] ####[facility] (BEAKER)[address] [place] [address] Immature granulocytes/100 WBC (Bld) 0.5 % Normal 0.0-1.0 [facility] Comment on above: Performed By: #### L [id number] ####[facility] (BEAKER)[address] [place] [address] Lymphocytes (Bld) [#/Vol] 2.46 10*3/uL Normal 1.20-4.00 [facility] Comment on above: Performed By: #### L [id number] ####[facility] (BEAKER)[address] [place] [address] Lymphocytes/100 WBC (Bld) 38.2 % Normal 20.0-45.0 [facility] Comment on above: Performed By: #### L [id number] ####[facility] (BEAKER)[address] [place] [address] MCH (RBC) [Entitic mass] 30.4 pg Normal 27.0-33.0 [facility] Comment on above: Performed By: #### L [id number] ####[facility] (BEAKER)[address] [place] [address] MCV (RBC) [Entitic vol] 91.3 fL Normal 82.0-98.0 [facility] Comment on above: Performed By: #### L [id number] ####[facility] ([facility] [place] [address] Monocytes (Bld) [#/Vol] 0.51 10*3/uL Normal 0.10-1.00 [facility] Comment on above: Performed By: #### L [id number] ####[facility] (BEAKER)[address] [place] [address] Monocytes/100 WBC (Bld) 7.9 % Normal 5.0-12.0 [facility] Comment on above: Performed By: #### L [id number] ####[facility] (BEAKER)[address] [place] [address] Neutrophils (Bld) [#/Vol] 3.30 10*3/uL Normal 1.60-7.60 [facility] Comment on above: Performed By: #### L [id number] ####[facility] (BEAKER)[address] [place] [address] Neutrophils/100 WBC (Bld) 51.2 % Normal 40.0-72.0 [facility] Comment on above: Performed By: #### L [id number] ####[facility] (BEAKER)[address] [place] [address] NRBC (PER 100 WBCS) BY AUTOMATED COUNT 0.0 % Normal 0 [facility] Comment on above: Performed By: #### L [id number] ####[facility] (BEAKER)[address] [address] PLATELETS (10*3/UL) IN BLOOD AUTOMATED COUNT 281 10*3/uL Normal 150-400 [facility] Comment on above: Performed By: #### L [id number] ####[facility] (BEAKER)[address] [address] RBC (Bld) [#/Vol] 4.71 10*6/uL Normal 4.20-5.70 [facility] Comment on above: Performed By: #### L [id number] ####[facility] (BEAKER)[address] [address] WBC (Bld) [#/Vol] 6.44 10*3/uL Normal 4.00-10.60 [facility] Comment on above: Performed By: #### L [id number] ####[facility] (BEAKER)[address] [place] [address] ETHANOLon 04-09-2023 ETHANOL (MG/DL) IN SER/PLAS <10 Normal [facility] Comment on above: Result Comment: No E thanol detected Performed By: #### L [id number] ####[facility] (BEAKER)[address] [place] [address] ETHANOL CALCULATED (%) Normal [facility] Comment on above: Performed By: #### L [id number] ####[facility] (BEAKER)[address] [place] [address] Follow-Upon 04-09-2023 Follow-Up Normal [facility] HEMOGLOBIN A1Con 04-09-2023 Glucose [Mass/Vol] 128 mg/dL Normal [facility] Comment on above: Performed By: #### L [id number] ####[facility] (BEAKER)[address] [place] [address] HbA1c (Bld) [Mass fraction] 6.1 % High 4.0-6.0 [facility] Comment on above: Performed By: #### L [id number] ####[facility] ([facility])[address] [place] [address] HPon 04-09-2023 HP Normal [facility] Labon 04-09-2023 Lab [id number] Gui Ortiz 1955 M Date Provider Department [place] 04/09/2023 2245-[facility] RESOURCE [facility] [place] [facility] Family History Family history unknown: Yes Normal [facility] MRSA/MSSA DNA NASALon 2022 MRSA DNA Negative Normal Negative [facility] Comment on above: Order Comment: Testi ng [...] preclude nasal colonization. Performed By: #### L [id number] ####[facility] ([facility])[address] [place] [address] MSSA DNA Negative Normal Negative [facility] Comment on above: Order Comment: Testi ng [...] preclude nasal colonization. Performed By: #### L [id number] ####[facility] ([facility])[address] [place] [address] Orders Onlyon 04-09-2023 Orders Only [id number] Gui Ortiz 1955 M Date Provider Department Center 04/09/2023 728-ALEJO PAREDES HVCVASENDO [place] [facility] Family History Family history unknown: Yes Normal [facility] PROTIME-INRon 04-09-2023 INR IN PPP BY COAGULATION ASSAY 1.00 Normal 0.90-1.10 [facility] Comment on above: Result Comment: [facility] WARF[facility] THERAPY CONDITION INRPROPHYLAXIS OF VENOUS THROMBOSIS 2-3(HIGH-RISK SURGERY)TREATMENT OF VENOUS THROMBOSIS 2-3TREATMENT OF PULMONARY EMBOLISM 2-3PREVENTION OF SYSTEMIC EMBOLISM: 2-3 ACUTE MYOCARDIAL INFARCTION TISSUE HEART VALVES VALVULAR HEART DISEASE ATRIAL FIBRILLATION RECURRENT SYSTEMIC EMBOLISMMECHANICAL HEART VALVE 2.5-3.5 FROM: ORAL ANTICOAGULANTS. MECHANISM OF ACTION, CLINICAL EFFECTIVENESS, AND OPTIMAL THERAPEUTIC RANGE. CHEST 1995;108:231S-246S. Performed By: #### L [id number] ####[facility] (gripNote)[address] [place] [address] PROTHROMBIN TIME (PT) IN PPP BY COAGULATION ASSAY 13.2 Seconds Normal 12.3-14.8 [facility] Comment on above: Performed By: #### L [id number] ####[facility] ([facility])[address] [place] [address] TOXICOLOGY PANEL URINEon AMPHETAMINE+METHAM PHETAMINE SCREEN (PRESENCE) IN URINE Negative Normal Negative [facility] Comment on above: Performed By: #### L [id number] ####[facility] ([facility])[address] [place] [address] BARBITURATES PRESENCE IN URINE BY SCREEN METHOD Negative Normal Negative [facility] Comment on above: Performed By: #### L [id number] ####[facility] (BEAKER)[address] [facility] [place] [address] Benzodiazepines Ql (U) Negative Normal Negative [facility] Comment on above: Performed By: #### L [id number] ####[facility] ([facility] [facility] [place] [address] CANNABINOID (PRESENCE) IN URINE BY SCREEN METHOD Negative Normal Negative [facility] Comment on above: Performed By: #### L [id number] ####[facility] ([facility])[address] [place] [address] Cocaine Ql (U) Negative Normal Negative [facility] Comment on above: Performed By: #### L [id number] ####[facility] ([facility])[address] [facility] [place] [address] METHADONE (PRESENCE) IN URINE BY SCREEN METHOD Normal [facility] Comment on above: Result Comment: Meth adone being sent out. Results to follow. Performed By: #### L [id number] ####[facility] ([facility])[address] [facility] [place] [address] OPIATES (PRESENCE) IN URINE BY SCREEN METHOD Negative Normal Negative [facility] Comment on above: Performed By: #### L [id number] ####[facility] ([facility])[address] [facility] [place] [address] PHENCYCLIDINE PRESENCE IN URINE BY SCREEN METHOD Negative Normal Negative [facility] Comment on above: Performed By: #### L [id number] ####[facility] ([facility])[address] [facility] [place] [address] Propoxyphene Screen Ql (U) Negative Normal Negative [facility] Comment on above: Performed By: #### L [id number] ####[facility] ([facility])[address] [facility] [place] [address] TRICYCLIC ANTIDEPRESSANTS (PRESENCE) IN URINE Negative Normal Negative [facility] Comment on above: Performed By: #### L [id number] ####[facility] ([facility])[address] [facility] [place] [address] TYPE AND SCREENon 04-09-2023 AB SCREEN Negative Normal [facility] Comment on above: Performed By: #### L [id number] ####[facility], ABO group Nom (Bld) O Normal [facility] Comment on above: Performed By: #### L [id number] ####[facility], RH TYPE IN BLOOD Positive Normal [facility] Comment on above: Performed By: #### L [id number] ####[facility], URINALYSISon 04-09-2023 BILIRUBIN, TOTAL PRESENCE IN URINE Negative Normal Negative [facility] Comment on above: Performed By: #### L [id number] ####[facility] (BEAKER)[address] [place] [address] Clarity (U) Clear Normal Clear [facility] Comment on above: Performed By: #### L [id number] ####[facility] (BEAKER)[address] [place] [address] Color (U) Yellow Normal Yellow [facility] Comment on above: Performed By: #### L [id number] ####[facility] (BEAKER)[address] [place] [address] Glucose (U) [Mass/Vol] Negative Normal Negative [facility] Comment on above: Performed By: #### L [id number] ####[facility] (BEAKER)[address] [place] [address] HEMOGLOBIN PRESENCE IN URINE Small Abnormal Negative [facility] Comment on above: Performed By: #### L [id number] ####[facility] (BEAKER)[address] [place] [address] Ketones Ql (U) Negative Normal Negative [facility] Comment on above: Performed By: #### L [id number] ####[facility] (BEAKER)[address] [place] [address] LEUKOCYTE ESTERASE PRESENCE IN URINE BY TEST STRIP Negative Normal Negative [facility] Comment on above: Performed By: #### L [id number] ####[facility] (BEAKER)[address] [place] [address] NITRITE PRESENCE IN URINE Negative Normal Negative [facility] Comment on above: Performed By: #### L [id number] ####[facility] ([facility] [place] [address] pH (U) 6.0 [pH] Normal 5.0-8.0 [facility] Comment on above: Performed By: #### L [id number] ####[facility] ([facility])[address] [place] [address] Protein (U) [Mass/Vol] Negative Normal Negative [facility] Comment on above: Performed By: #### L [id number] ####[facility] ([facility])[address] [place] [address] Specific gravity (U) [Rel density] 1.012 Low 1.015-1.020 [facility] Comment on above: Performed By: #### L [id number] ####[facility] ([facility])[address] [place] [address] URINALYSIS MICROSCOPICon CASTS IN URINE Normal [facility] Comment on above: Performed By: #### L [id number] ####[facility] ([facility])[address] [place] [address] CRYSTALS IN URINE Normal [facility] Comment on above: Performed By: #### L [id number] ####[facility] ([facility])[address] [place] [address] RBC (#/HPF) IN URINE SEDIMENT 3-5 Abnormal None Seen [facility] Comment on above: Performed By: #### L [id number] ####[facility] ([facility] [place] [address] SQUAMOUS EPITHELIAL CELLS (#/HPF) IN URINE SEDIMENT None Seen Normal None Seen, Occasional [facility] Comment on above: Performed By: #### L [id number] ####[facility] ([facility] [place] [address] WBC (LEUKOCYTE) (#/HPF) IN URINE SEDIMENT None Seen Normal None Seen [facility] Comment on above: Performed By: #### L [id number] ####[facility] ([facility])[address] [place] [address] Documentationon 04-01-2023 Documentation Normal [facility] 30on 03-23-2023 30 Normal [facility] 30 Normal [facility] 30 Normal [facility] ANTI-XA (HEPARIN LEVEL)on HEPARIN UNFRACTIONATED (U/ML) IN PPP BY CHROMOGENIC METHOD <0.10 Invalid Interpretation Code 0.3-0.7 [facility] Comment on above: Order Comment: Check anti-Xa level every 6 hours while on heparin infusion, or per protocol. Result Comment: [place] roxaban and Apixaban will interfere with the anti Xa assay used to monitor UFH and LMWH. Performed By: #### L [id number] ####[facility] ([facility])[address] [place] [address] BASIC METABOLIC PANELon 10- Anion gap [Moles/Vol] 11 mmol/L Normal 7-20 [facility] Comment on above: Performed By: #### L [id number] ####[facility] ([facility])[address] [place] [address] Calcium [Mass/Vol] 9.1 mg/dL Normal 8.6-10.3 [facility] Comment on above: Performed By: #### L [id number] ####[facility] ([facility])[address] [place] [address] Chloride [Moles/Vol] 107 mmol/L Normal 98-107 [facility] Comment on above: Performed By: #### L [id number] ####[facility] ([facility] [place] [address] CO2 [Moles/Vol] 23 mmol/L Normal 21-31 [facility] Comment on above: Performed By: #### L [id number] ####[facility] ([facility])[address] [place] [address] Creatinine [Mass/Vol] 0.85 mg/dL Normal 0.70-1.30 [facility] Comment on above: Performed By: #### L [id number] ####[facility] ([facility])[address] [place] [address] GLOMERULAR FILTRATION RATE ML/MIN/1.73 SQ M.PREDICTED 94.1 mL/min/1.73m*2 Normal >60.0 [facility] Comment on above: Result Comment: The [facility]???s estimated glomerular filtration rate (eGFR) will no [...] of individuals. Performed By: #### L [id number] ####[facility] ([facility])[address] [place] [address] Glucose [Mass/Vol] 103 mg/dL High 70-100 [facility] Comment on above: Performed By: #### L [id number] ####[facility] ([facility])[address] [place] [address] Potassium [Moles/Vol] 3.8 mmol/L Normal 3.5-5.1 [facility] Comment on above: Performed By: #### L [id number] ####[facility] ([facility])[address] [facility] [address] Sodium [Moles/Vol] 137 mmol/L Normal 136-145 [facility] Comment on above: Performed By: #### L [id number] ####[facility] ([facility])[address] [place] [address] Urea nitrogen [Mass/Vol] 12 mg/dL Normal 7-25 [facility] Comment on above: Performed By: #### L [id number] ####[facility] ([facility])[address] [place] [address] UREA NITROGEN/CREATININ E (MASS RATIO) IN SER/PLAS 14.1 Normal [facility] Comment on above: Performed By: #### L [id number] ####[facility] ([facility])[address] [address] CBCon 03-23-2023 Erythrocyte distribution width (RBC) [Ratio] 13.0 % Normal 11.5-15.0 [facility] [facility] Comment on above: Performed By: #### L [id number] ####[facility] ([facility])[address] [place] [address] ERYTHROCYTE MEAN CORPUSCULAR HEMOGLOBIN CONCENTRATION (G/DL) BY AUTOMATED 34.5 g/dL Normal 32.0-35.0 [facility] Comment on above: Performed By: #### L [id number] ####[facility] ([facility])[address] [place] [address] Hematocrit (Bld) [Volume fraction] 41.4 % Normal 39.0-55.0 [facility] Comment on above: Performed By: #### L [id number] ####[facility] ([facility])[address] [place] [address] Hemoglobin (Bld) [Mass/Vol] 14.3 g/dL Normal 13.0-17.0 [facility] Comment on above: Performed By: #### L [id number] ####[facility] ([facility])[address] [place] [address] MCH (RBC) [Entitic mass] 30.4 pg Normal 27.0-33.0 [facility] Comment on above: Performed By: #### L [id number] ####[facility] ([facility] [place] [address] MCV (RBC) [Entitic vol] 87.9 fL Normal 82.0-98.0 [facility] Comment on above: Performed By: #### L [id number] ####[facility] ([facility] [place] [address] PLATELETS (10*3/UL) IN BLOOD AUTOMATED COUNT 243 10*3/uL Normal 150-400 [facility] Comment on above: Performed By: #### L [id number] ####[facility] ([facility])[address] [place] [address] RBC (Bld) [#/Vol] 4.71 10*6/uL Normal 4.20-5.70 [facility] Comment on above: Performed By: #### L [id number] ####[facility] ([facility])[address] [place] [address] WBC (Bld) [#/Vol] 6.84 10*3/uL Normal 4.00-10.60 [facility] Comment on above: Performed By: #### L [id number] ####[facility] ([facility])[address] [place] [address] CT HEAD WO IV CONTRASTon CT HEAD WO IV CONTRAST Normal [facility] CTA CHEST W AND/OR WO IV CON TRASTon 03-23-2023 CTA CHEST W AND/OR WO IV CONTRAST Normal [facility] DSon 03-23-2023 DS Normal [facility] 30on 03-22-2023 30 Normal [facility] 30 Normal [facility] ANESon 03-22-2023 ANES Normal [facility] APTTon 03-22-2023 ACTIVATED PARTIAL THROMBOPLASTIN TIME IN PPP BY COAGULATION ASSAY 36.2 Seconds High 25.0-35.0 [facility] Comment on above: Order Comment: Basel ine aPTT before initiating heparin infusion. Result Comment: Clin ical significance of the APTT is questionable in the presence of heparin. Performed By: #### L [id number] ####[facility] ([facility])[address] [place] [address] BASIC METABOLIC PANELon Anion gap [Moles/Vol] 9 mmol/L Normal 7-20 [facility] Comment on above: Performed By: #### L [id number] ####[facility] ([facility])[address] [place] [address] Calcium [Mass/Vol] 8.9 mg/dL Normal 8.6-10.3 [facility] Comment on above: Performed By: #### L [id number] ####[facility] ([facility])[address] [place] [address] Chloride [Moles/Vol] 111 mmol/L High 98-107 [facility] Comment on above: Performed By: #### L [id number] ####[facility] ([facility])[address] [place] [address] CO2 [Moles/Vol] 22 mmol/L Normal 21-31 [facility] Comment on above: Performed By: #### L [id number] ####[facility] ([facility])[address] [place] [address] Creatinine [Mass/Vol] 0.79 mg/dL Normal 0.70-1.30 [facility] Comment on above: Performed By: #### L [id number] ####[facility] ([facility])[address] [place] [address] GLOMERULAR FILTRATION RATE ML/MIN/1.73 SQ M.PREDICTED 96.2 mL/min/1.73m*2 Normal >60.0 [facility] Comment on above: Result Comment: The [facility]???s estimated glomerular filtration rate (eGFR) will no [...] of individuals. Performed By: #### L [id number] ####[facility] ([facility])[address] [place] [address] Glucose [Mass/Vol] 112 mg/dL High 70-100 [facility] Comment on above: Performed By: #### L [id number] ####[facility] ([facility])[address] [place] [address] Potassium [Moles/Vol] 3.9 mmol/L Normal 3.5-5.1 [facility] Comment on above: Performed By: #### L [id number] ####[facility] ([facility])[address] [place] [address] Sodium [Moles/Vol] 138 mmol/L Normal 136-145 [facility] Comment on above: Performed By: #### L [id number] ####[facility] ([facility])[address] [place] [address] Urea nitrogen [Mass/Vol] 12 mg/dL Normal 7-25 [facility] Comment on above: Performed By: #### L [id number] ####[facility] ([facility])[address] [place] [address] UREA NITROGEN/CREATININ E (MASS RATIO) IN SER/PLAS 15.2 Normal [facility] Comment on above: Performed By: #### L [id number] ####[facility] ([facility])[address] [place] [address] CBCon 03-22-2023 Erythrocyte distribution width (RBC) [Ratio] 13.2 % Normal 11.5-15.0 [facility] Comment on above: Performed By: #### L [id number] ####[facility] ([facility])[address] [place] [address] ERYTHROCYTE MEAN CORPUSCULAR HEMOGLOBIN CONCENTRATION (G/DL) BY AUTOMATED 33.7 g/dL Normal 32.0-35.0 [facility] Comment on above: Performed By: #### L [id number] ####[facility] ([facility])[address] [place] [address] Hematocrit (Bld) [Volume fraction] 40.3 % Normal 39.0-55.0 [facility] Comment on above: Performed By: #### L [id number] ####[facility] ([facility])[address] [place] [address] Hemoglobin (Bld) [Mass/Vol] 13.6 g/dL Normal 13.0-17.0 [facility] Comment on above: Performed By: #### L [id number] ####[facility] ([facility])[address] [place] [address] MCH (RBC) [Entitic mass] 30.5 pg Normal 27.0-33.0 [facility] Comment on above: Performed By: #### L [id number] ####[facility] ([facility])[address] [place] [address] MCV (RBC) [Entitic vol] 90.4 fL Normal 82.0-98.0 [facility] Comment on above: Performed By: #### L [id number] ####[facility] ([facility])[address] [place] [address] PLATELETS (10*3/UL) IN BLOOD AUTOMATED COUNT 241 10*3/uL Normal 150-400 [facility] Comment on above: Performed By: #### L [id number] ####[facility] ([facility])[address] [place] [address] RBC (Bld) [#/Vol] 4.46 10*6/uL Normal 4.20-5.70 [facility] Comment on above: Performed By: #### L [id number] ####[facility] ([facility])[address] [place] [address] WBC (Bld) [#/Vol] 6.03 10*3/uL Normal 4.00-10.60 [facility] Comment on above: Performed By: #### L [id number] ####[facility] ([facility])[address] [place] [address] CONSULTon 03-22-2023 CONSULT Normal [facility] CONSULT Normal [facility] CT CHEST WO IV CONTRASTon CT CHEST WO IV CONTRAST Normal [facility] HEMOGLOBIN A1Con 03-22-2023 Glucose [Mass/Vol] 126 mg/dL Normal [facility] Comment on above: Performed By: #### L [id number] ####[facility] [place] [address] HbA1c (Bld) [Mass fraction] 6.0 % Normal 4.0-6.0 [facility] Comment on above: Performed By: #### L [id number] ####[facility] ([facility])[address] [place] [address] HPon 03-22-2023 HP H&P reviewed. The laurie putnam was examined and there are no changes to the H&P. Will proceed with coronary angiogram for chest pain and elevated high sensitivity troponin. Normal [facility] LIPID PANELon 03-22-2023 CHOL/HDL 4.9 mg/dL Normal [facility] Comment on above: Performed By: #### L [id number] ####[facility] ([facility])[address] [facility] [place] [address] Cholesterol [Mass/Vol] 138 mg/dL Normal 120-200 [facility] Comment on above: Performed By: #### L [id number] ####[facility] ([facility])[address] [facility] [place] [address] Magnesium [Mass/Vol] 107 mg/dL Normal 40-149 [facility] Comment on above: Result Comment: TRIG LYCERIDE REFERENCE RANGE:20 YEARS AND OLDER CARDIOVASCULAR RISKLESS THAN 150 mg/dL LOW [id number] TO 199 mg/dL BORDERLINE [id number] mg/dL AND GREATER HIGH RISK Performed By: #### L [id number] ####[facility] ([facility] [facility] [place] [address] Magnesium [Mass/Vol] 89 mg/dL Normal 0-160 [facility] Comment on above: Performed By: #### L [id number] ####[facility] ([facility])[address] [facility] [place] [address] Magnesium [Mass/Vol] 28 mg/dL Normal 23-92 [facility] Comment on above: Performed By: #### L [id number] ####[facility] ([facility] [place] [address] NON HDL CHOL. (LDL+VLDL) 110 Normal [facility] Comment on above: Performed By: #### L [id number] ####[facility] ([facility])[address] [place] [address] TOTAL VLDL-C 21 mg/dL Normal 0-40 [facility] Comment on above: Performed By: #### L [id number] ####[facility] ([facility])[address] [place] [address] MRSA/MSSA DNA NASALon 2022 MRSA DNA Negative Normal Negative [facility] Comment on above: Order Comment: Testi ng [...] preclude nasal colonization. Performed By: #### L [id number] ####[facility] ([facility])[address] [place] [address] MSSA DNA Negative Normal Negative [facility] Comment on above: Order Comment: Testi ng [...] preclude nasal colonization. Performed By: #### L [id number] ####[facility] ([facility])[address] [place] [address] TROPONIN Ion 03-22-2023 Troponin I.cardiac [Mass/Vol] 0.03 ng/mL Normal 0.00-0.04 [facility] Comment on above: Performed By: #### L [id number] ####[facility] ([facility])[address] [place] [address] Troponin I.cardiac [Mass/Vol] 0.04 ng/mL Normal 0.00-0.04 [facility] Comment on above: Performed By: #### L [id number] ####[facility] ([facility])[address] [place] [address] TSH3 REFLEX TO FT4on 023 THYROTROPIN (MIU/L) IN SER/PLAS BY DETECTION LIMIT <= 0.05 MIU/L 2.07 mIU/L Normal 0.34-5.60 [facility] Comment on above: Performed By: #### L [id number] ####[facility] ([facility])[address] [place] [address] URINALYSISon 03-22-2023 BILIRUBIN, TOTAL PRESENCE IN URINE Negative Normal Negative [facility] Comment on above: Performed By: #### L [id number] ####[facility] ([facility])[address] [place] [address] Clarity (U) Clear Normal Clear [facility] Comment on above: Performed By: #### L [id number] ####[facility] ([facility])[address] [place] [address] Color (U) Yellow Normal Yellow [facility] Comment on above: Performed By: #### L [id number] ####[facility] ([facility])[address] [place] [address] Glucose (U) [Mass/Vol] Negative Normal Negative [facility] Comment on above: Performed By: #### L [id number] ####[facility] ([facility])[address] [place] [address] HEMOGLOBIN PRESENCE IN URINE Small Abnormal Negative [facility] Comment on above: Performed By: #### L [id number] ####[facility] ([facility])[address] [place] [address] Ketones Ql (U) Negative Normal Negative [facility] Comment on above: Performed By: #### L [id number] ####[facility] ([facility])[address] [place] [address] LEUKOCYTE ESTERASE PRESENCE IN URINE BY TEST STRIP Negative Normal Negative [facility] Comment on above: Performed By: #### L [id number] ####[facility] ([facility])[address] [place] [address] NITRITE PRESENCE IN URINE Negative Normal Negative [facility] Comment on above: Performed By: #### L [id number] ####[facility] ([facility])[address] [place] [address] pH (U) 6.0 [pH] Normal 5.0-8.0 [facility] Comment on above: Performed By: #### L [id number] ####[facility] ([facility])[address] [place] [address] Protein (U) [Mass/Vol] Negative Normal Negative [facility] Comment on above: Performed By: #### L [id number] ####[facility] ([facility])[address] [place] [address] Specific gravity (U) [Rel density] 1.049 High 1.015-1.020 [facility] Comment on above: Performed By: #### L [id number] ####[facility] ([facility])[address] [place] [address] URINALYSIS MICROSCOPICon CASTS IN URINE Normal [facility] Comment on above: Performed By: #### L [id number] ####[facility] ([facility] [place] [address] CRYSTALS IN URINE Normal [facility] Comment on above: Performed By: #### L [id number] ####[facility] ([facility] [place] [address] RBC (#/HPF) IN URINE SEDIMENT 6-10 Abnormal None Seen [facility] Comment on above: Performed By: #### L [id number] ####[facility] ([facility] [place] [address] SQUAMOUS EPITHELIAL CELLS (#/HPF) IN URINE SEDIMENT Few Abnormal None Seen, Occasional [facility] Comment on above: Performed By: #### L [id number] ####[facility] ([facility])[address] [place] [address] WBC (LEUKOCYTE) (#/HPF) IN URINE SEDIMENT None Seen Normal None Seen [facility] Comment on above: Performed By: #### L [id number] ####[facility] ([facility])[address] [place] [address] 30on 03-21-2023 30 Normal [facility] D-DIMER, QUANTITATIVEon 10- FIBRIN D-DIMER (UG/L FEU) IN PLATELET POOR PLASMA 0.36 mcg/mL FEU Normal 0.27-0.49 [facility] Comment on above: Order Comment: D-Dim er values of less than 0.50 ug/ml (FEU) are considered to be a negative predictor of thrombosis. However, the D-Dimer result should be used in conjunction with pretest probability and should not be used alone to diagnose a thrombotic event. 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 Discharge Vitals Height 162 cm Height 64 in Weight 67.2 kg Weight 147.84 lb BMI 25.61 What to do next Scheduled Follow-Up Appointments Saturday 8:30 AM EDT With: DAKSHA ROMERO, ELIZABETH Benedict Where: [facility] Urology Office/Clinic Noteon 01-29-2023 Urology Office/Clinic [...] With When Contact Information ELIZABETH LINDSAY PA-C, ANOOP In 1 year [address] [place] [place] [address] Additional Instructions: w/PSA Patient Education Documentation recorded by the scrjulian Rojas accurately reflects the services(s) I performed and decisions made by me. Authenticated by Elizabeth Lindsay PA-C on 01/29/2023 16:19:01. INani, personally scribed for Elizabeth Lindsay PA-C on [...] Protein Urine Dipstick: Negative (01/29/23 14:37:00) Specific [place] Urine Dipstick: 1.025 (01/29/23 14:37:00) Urine Appearance Urine Dipstick: Clear (01/29/23 14:37:00) Urine Color Urine Dipstick: Yellow (01/29/23 14:37:00) pH Urine Dips (more content not included)... Normal [facility] Comment on above: Result Comment: Elec tronically Signed By: ELIZABETH LINDSAY PA-C\.olive\Date and Time Signed: 01/29/23 16:19 EDT\.br\Electronically Co-Signed By: Nani Rojas\.olive\Date and Time Co-Signed: 01/29/23 14:53 EDT PET [...] GARCIA GALLEGOS Date: 2022-08-04 17:12 [address] [facility] [address] LUNG CANCER SCREENINGon 0 07-26-2022 CT [...] DAVID EL Date: 2022-07-26 07:42 Normal [facility] INSULINon 07-26-2022 Insulin 4.0 uIU/mL Normal 2.6-24.9 [facility] Comment on above: Performed By: #### I NSULIN #### [facility] [address] [address] [address] Rehana Martinez CBC AUTO DIFFon 07-25-2022 BASO # 0.0 103/ul Normal 0.0-0.1 [facility] Comment on above: Performed By: #### C BC #### [facility] [address] [address] [address] Rehana Martinez Basophils/100 WBC (Bld) 0.2 % Normal 0.2-2.0 [facility] Comment on above: Performed By: #### C BC #### [facility] [address] [place] [address] Dr. Rehana Martinez EO # 0.1 103/ul Normal 0.0-0.7 [facility] Comment on above: Performed By: #### C BC #### [facility] [address] [place] [address] Dr. Rehana Martinez Eosinophils/100 WBC (Bld) 0.5 % Critically low 0.9-7.0 [facility] Comment on above: Performed By: #### C BC #### [facility] [address] [place] [address] Dr. Rehana Martinez Erythrocyte distribution width (RBC) [Ratio] 13.6 % Normal 11.0-15.0 [facility] Comment on above: Performed By: #### C BC #### [facility] [address] [place] [address] Dr. Rehana Martinez Hematocrit (Bld) [Volume fraction] 45.6 % Normal 42.0-54.0 [facility] Comment on above: Performed By: #### C BC #### [facility] [address] [place] [address] Dr. Rehana Martinez Hemoglobin (Bld) [Mass/Vol] 15.1 g/dL Normal 14.0-18.0 [facility] Comment on above: Performed By: #### C BC #### [facility] [address] [place] [address] Dr. Rehana Martinez IG # 0.04 10e3/ul Critically high 0.00-0.03 [facility] Comment on above: Performed By: #### C BC #### [facility] [address] [place] [address] Dr. Rehana Martinez IG % 0.4 % Normal 0.0-0.5 [facility] Comment on above: Performed By: #### C BC #### [facility] [address] [place] [address] Dr. Rehana Martinez LYMPH # 1.7 103/ul Normal 1.2-3.8 [facility] Comment on above: Performed By: #### C BC #### [facility] [address] [place] [address] Dr. Rehana Martinez Lymphocytes/100 WBC (Bld) 17.9 % Critically low 20.5-60.0 [facility] Comment on above: Performed By: #### C BC #### [facility] [address] [place] [address] Dr. Rehana Martinez MANUAL DIFF REQ NO Normal [facility] Comment on above: Performed By: #### C BC #### [facility] [address] [place] [address] Dr. Rehana Martinez MCH (RBC) [Entitic mass] 30.8 pg Normal 25.9-34.0 [facility] Comment on above: Performed By: #### C BC #### [facility] [address] [place] [address] Dr. Rehana Martinez MCHC (RBC) [Mass/Vol] 33.1 g/dL Normal 29.9-35.2 [facility] Comment on above: Performed By: #### C BC #### [facility] [address] [place] [address] Dr. Rehana Martinez MCV (RBC) [Entitic vol] 92.9 fL Normal 80.0-94.0 [facility] Comment on above: Performed By: #### C BC #### [facility] [address] [place] [address] Dr. Rehana Martinez MONO # 1.1 103/ul Critically high 0.3-0.8 [facility] Comment on above: Performed By: #### C BC #### [facility] [address] [place] [address] Dr. Rehana Martinez Monocytes/100 WBC (Bld) 11.2 % Normal 1.7-12.0 [facility] Comment on above: Performed By: #### C BC #### [facility] [address] [place] [address] Dr. Rehana Martinez NEUT # 6.7 103/ul Critically high 1.4-6.5 [facility] Comment on above: Performed By: #### C BC #### [facility] [address] [place], [place] [address] Dr. Rehana Martinez Neutrophils/100 WBC (Bld) 69.8 % Normal 43.0-75.0 [facility] Comment on above: Performed By: #### C BC #### [facility] [address] [address] [address] Rehana Martinez Platelet mean volume (Bld) [Entitic vol] 8.7 fL Critically low 9.5-13.5 [facility] Comment on above: Performed By: #### C BC #### [facility] [address] [address] [address] Rehana Martinez PLT 226 103/ul Normal 150-450 [facility] Comment on above: Performed By: #### C BC #### [facility] [address] [address] [address] Rehana Martinez RBC 4.91 106/ul Normal 4.70-6.10 [facility] Comment on above: Performed By: #### C BC #### [facility] [address] [address] [address] Rehana Martinez WBC 9.6 103/ul Normal 4.0-11.0 [facility] Comment on above: Performed By: #### C BC #### [facility] [address] [address] [address] Rehana Martinez FREE THYROXINE INDEX T7on FTI 3.37 Normal 1.30-4.50 [facility] Comment on above: Performed By: #### L IPID, CMP, TSH, URIC, T7 ####[facility] [address] [place], [place] [address]GxDr. Rehana Martinez T3U 37.0 % Normal 33.0-40.0 [facility] Comment on above: Performed By: #### L IPID, CMP, TSH, URIC, T7 ####[facility] [address] [place], [place] [address]QlDr. Rehana Martinez T4 [Mass/Vol] 9.10 ug/dL Normal 4.50-12.10 [facility] Comment on above: Performed By: #### L IPID, CMP, TSH, URIC, T7 ####[facility] [address] [id number] Rehana Martinez GLYCOHEMOGLOBIN A1Con 2022 ADA RECOMMENDATION SEE BELOW Normal [facility] Comment on above: Result Comment: ADA RECOMMENDED LIMIT 4.0 - 6.0 ADA THERAPEUTIC TARGET < 7.0 ACTION SUGGESTED > 7.0 Performed By: #### A 1C #### [facility] [address] [address] [address] Rehana Martinez Glucose [Mass/Vol] 128 mg/dL Normal [facility] Comment on above: Performed By: #### A 1C #### [facility] [address] [address] [address] Rehana Martinez HbA1c (Bld) [Mass fraction] 6.1 % Normal 4.5-6.2 [facility] Comment on above: Performed By: #### A 1C #### [facility] [address] [address] [address] Rehana Martinez LIPID PROFILEon 07-25-2022 CHOL-HDL RATIO NORM SEE BELOW Normal [facility] Comment on above: Result Comment: 3.3 - 4.4 LOW RISK 4.4 - 7.1 AVERAGE RISK 7.1 - 11.0 MODERATE RISK >11.0 HIGH RISK Performed By: #### L IPID, CMP, TSH, URIC, T7 ####[facility] [address] [id number] Martinez Cholesterol [Mass/Vol] 137 mg/dL Normal <=200 [facility] Comment on above: Performed By: #### L IPID, CMP, TSH, URIC, T7 ####[facility] [address] [id number] Martinez Cholesterol in HDL [Mass/Vol] 44 mg/dL Normal 40-60 [facility] Comment on above: Performed By: #### L IPID, CMP, TSH, URIC, T7 ####[facility] [address] [id number] Martinez Cholesterol in LDL [Mass/Vol] 75.6 mg/dL Normal [facility] Comment on above: Performed By: #### L IPID, CMP, TSH, URIC, T7 ####[facility] [address] [address]Dr. Rehana Martinez Cholesterol.total/ Cholesterol in HDL [Mass ratio] 3.1 {ratio} Normal [facility] Comment on above: Performed By: #### L IPID, CMP, TSH, URIC, T7 ####[facility] [address] [address]Dr. Rehana Martinez HDL NORMAL > or = 60 mg/dl - LO W CARDIOVASCULAR RISK <40 mg/dl - HIGH CARDIOVASCULAR RISK Normal [facility] Comment on above: Performed By: #### L IPID, CMP, TSH, URIC, T7 ####[facility] [address] [address]Dr. Rehana Martinez LDL CALC NORMAL SEE BELOW Normal [facility] Comment on above: Result Comment: <100 mg/dl OPTIMAL 100 - 129 mg/dl NEAR OR ABOVE OPTIMAL 130 - 159 mg/dl BORDERLINE HIGH 160 - 189 mg/dl HIGH >190 mg/dl VERY HIGH Performed By: #### L IPID, CMP, TSH, URIC, T7 ####[facility] [address] [address]Dr. Rehana Martinez Triglyceride [Mass/Vol] 87 mg/dL Normal <=150 [facility] Comment on above: Performed By: #### L IPID, CMP, TSH, URIC, T7 ####[facility] [address] [address]Dr. Rehana Martinez VLDL CALC 17.4 mg/dL Normal [facility] Comment on above: Performed By: #### L IPID, CMP, TSH, URIC, T7 ####[facility] [address] [address]Dr. Rehana Martinez PROF 14(COMP METB)on 023 Albumin [Mass/Vol] 3.3 g/dL Critically low 3.4-5.0 [facility] Comment on above: Performed By: #### L IPID, CMP, TSH, URIC, T7 ####[facility] [address] [address]Dr. Rehana Martinez Albumin/Globulin [Mass ratio] 0.9 {ratio} Normal [facility] Comment on above: Performed By: #### L IPID, CMP, TSH, URIC, T7 ####[facility] [address] [address]Dr. Rehana Martinez ALP [Catalytic activity/Vol] 105 U/L Normal 46-116 [facility] Comment on above: Performed By: #### L IPID, CMP, TSH, URIC, T7 ####[facility] [address] [address]Dr. Floriirene Martinez ALT [Catalytic activity/Vol] 16 U/L Normal 16-63 [facility] Comment on above: Performed By: #### L IPID, CMP, TSH, URIC, T7 ####[facility] [address] [place], [place] [address]Dr. Rehana Martinez Anion gap [Moles/Vol] 11.8 mmol/L Normal [facility] Comment on above: Performed By: #### L IPID, CMP, TSH, URIC, T7 ####[facility] [address] [place], [place] [address]Dr. Floriirene Martinez AST [Catalytic activity/Vol] 16 U/L Normal 15-37 [facility] Comment on above: Performed By: #### L IPID, CMP, TSH, URIC, T7 ####[facility] [address] [place], [place] [address]Dr. Rehana Martinez Bilirubin [Mass/Vol] 0.6 mg/dL Normal 0.2-1.0 [facility] Comment on above: Performed By: #### L IPID, CMP, TSH, URIC, T7 ####[facility] [address] [place], [place] [address]Dr. Rehana Martinez Calcium [Mass/Vol] 9.1 mg/dL Normal 8.5-10.1 [facility] Comment on above: Performed By: #### L IPID, CMP, TSH, URIC, T7 ####[facility] [address] [address]Dr. Rehana Martinez Chloride [Moles/Vol] 103 mmol/L Normal 98-107 [facility] Comment on above: Performed By: #### L IPID, CMP, TSH, URIC, T7 ####[facility] [address] [address]Dr. Rehana Martinez CO2 [Moles/Vol] 26.0 mmol/L Normal 21.0-32.[address] [facility] Comment on above: Performed By: #### L IPID, CMP, TSH, URIC, T7 ####[facility] [address] [address]Dr. Rehana Martinez Creatinine [Mass/Vol] 0.94 mg/dL Normal 0.70-1.30 [facility] Comment on above: Performed By: #### L IPID, CMP, TSH, URIC, T7 ####[facility] [address] [place], [place] [address]Dr. Rehana Martinez EGFR-AF BULGARIAN >60 Normal >=[address] [facility] Comment on above: Performed By: #### L IPID, CMP, TSH, URIC, T7 ####[facility] [address] [place], [place] [address]Dr. Rehana Martinez EGFR-NON AF BULGARIAN >60 Normal >=60 [facility] Comment on above: Performed By: #### L IPID, CMP, TSH, URIC, T7 ####[facility] [address] [place], [place] [address]Dr. Rehana Martinez Globulin (S) [Mass/Vol] 3.8 g/dL Normal [facility] Comment on above: Performed By: #### L IPID, CMP, TSH, URIC, T7 ####[facility] [address] [address]Dr. Rehana Martinez Glucose [Mass/Vol] 109 mg/dL Critically high 74-106 [facility] Comment on above: Performed By: #### L IPID, CMP, TSH, URIC, T7 ####[facility] [address] [place], [place] [address]Dr. Rehana Martinez Potassium [Moles/Vol] 3.8 mmol/L Normal 3.5-5.1 [facility] Comment on above: Performed By: #### L IPID, CMP, TSH, URIC, T7 ####[facility] [address] [address]Dr. Rehana Martinez Protein [Mass/Vol] 7.1 g/dL Normal 6.4-8.2 [facility] Comment on above: Performed By: #### L IPID, CMP, TSH, URIC, T7 ####[facility] [address] [address]Dr. Rehana Martinez Sodium [Moles/Vol] 137 mmol/L Normal 136-145 [facility] Comment on above: Performed By: #### L IPID, CMP, TSH, URIC, T7 ####[facility] [address] [address]Dr. Rehana Martinez Urea nitrogen [Mass/Vol] 17.0 mg/dL Normal 7.0-18.0 [facility] Comment on above: Performed By: #### L IPID, CMP, TSH, URIC, T7 ####[facility] [address] [address]Dr. Rehana Martinez Urea nitrogen/Creatinin e [Mass ratio] 18.1 mg/mg Normal [facility] Comment on above: Performed By: #### L IPID, CMP, TSH, URIC, T7 ####[facility] [address] [address]Dr. Rehana Martinez TSHon 07-25-2022 TSH 1.619 uIU/mL Normal 0.358-3.740 [facility] Comment on above: Performed By: #### L IPID, CMP, TSH, URIC, T7 ####[facility] [address] [address]Dr. Rehana Martinez URIC ACID SERUMon 07-25-2022 Urate [Mass/Vol] 5.7 mg/dL Normal 3.5-7.[address] [facility] Comment on above: Performed By: #### L IPID, CMP, TSH, URIC, T7 #### [facility] [address] [place], [place] [address] Dr. Rehana Martinez UroVysion Fish and Urine Cyt o ([facility])on 04-06-2022 UVFISH & UC Diagnosis Info Invalid Interpretation Code [facility] Comment on above: Result Comment: A:Ur ine,Urine:Voided [...] on: 03/29/2022 10:51:08 Performed By: #### 1 [id number] ####[facility] [address] [id number] Patient Educationon 03-27-20 Patient Education Urology Benign Prostatic Hyperplasia Benign [...] Follow these instructions at home: ? Take ribn-awe-brucyyd and prescription medicines only as told by [...] You d (more content not included)... Normal [facility] Urology Office/Clinic Noteon 03-27-2022 Urology Office/Clinic Note [...] Monica Menendez, [facility] [address], [place] [address]- Additional Instructions: 6 mos PSA free & total Patient Education Benign Prostatic Hyperplasia Inga Fox, personally scribed for Dr. Rausch on 03/27/2022 10:31:33. Documentation recorded by the scribInga benedict, accurately reflects the services(s) I performed and [...] Social Hist (more content not included)... Normal [facility] Comment on above: Result Comment: Elec tronically Signed By: Casper RAUSCH MD\.br\Date and Time Signed: 03/27/22 10:34 EDT\.br\Electronically Co-Signed By: Inga Woodruff\.br\Date and Time Co-Signed: 03/27/22 10:32 EDT Coding Summary.on 03-22-2022 Coding Summary. CD:[id number]:[id number] Gh0bWw+ PGhlYWQ+MI7VWPUzA44vgXPfkF7 LY2zKWM0XPHPOTSPHEM7WFY6pnS T6JAhkF2JbziFl OxepwNPkRQ64MRs7DFE0nRjfYEx frB5vaWTfK0u4RvGnSZ28sQ42UC uoOBXdLuZ5CqTfnbalmTHj X6ssRvYukYIgXto+PHRhYmxlIHd eYNNuGWbePKDrZbDmoHyiUP2mBv 9yZGVyLWNvbGxhcHNlOiBj h8irSQZeFJuvGD3lhPrkC6DffZC 3DPQmd3y9Ey99uRY+UPEfHRO7gV cbUZfge311LcScr5kbNSJ0 iPHpPQfaIKF7J77to8T4HISoQLI dYUM6dCS7jH9geAxuwspuR9IzaQ NeZbU0BTH1dAUmyG6yuHzq dtjovO2jVql+L81VLO8ITGZUCV9 ZHlm9S8VoXxmfvPH+EP17XSUcOK 05kXEliWJup8uitOp4AyFk JOHkHMW1gKesODelb3GqLAXcV82 ofNPdc0H2QPDveEkqrLYvXjXukN H3mC8yPTfuyutsg7sfhxjq Ttmzc8ldub80lI73R69sNWpsPGM rZSR2NMNuRPJdmIlyum6ukI2bFg 8+YGzpl9hlq9bowTl8TbDw DDSwibDszVcaIUB0c5FgZc30Q8T ruIdli3VhJyd2iz00gRPht4P0rC C3PSkrVPPacA7sQWttMhK7 UNFmNpMnoG55hDSkYWnhSu6qrCv wdEarTY9hCKSkbcakGHXvhO1dFW DyjBYyfUdoNK8aFYRptjib a961GqGmNQC6URVvcWHzC9EmbD8 wVyUpSSQfHMRpO6KixAIsLNzxM4 32YMaoSdS3JHUhzvNnC3Pm RMPxpBhnFlD7f2L1Yp7Wa5Gtkzp hMBM0UKjeALKbPlU6NxCpUfH1W2 UxGbm7WKQuoWamVD8iM6Zf NRQdodlobxlafAV9EMYhMRUscB9 0zNNpUXzoPq7tz9C0y576QWSzQX NudL43Zu9rkNqjXDHkkVOG uP4tsmpsj5mmqmvpMeTjKTAhMSx 0KDa1SWUseMygWyMdMLS5VsN1GB W8eVRmdB0wdDyasoqzuN1r Oyc+L10djS4tSBL1PJJ4umgbHGM npaGvBA33ME70I5AgMmngnNRdhK U+XLZvegJchPbwKZ9kHsAp e0rae5MdEYmlN0WgVPRvXYpvPhq 6CVLxVVZ4oRS0eZ0tXZDaNBqki3 S6eNM3M8YjorKwhr6mf6ye QCTzVTuoQ13gaVOeg7T8NFJnoWR 8CEAyxEjnRbScjL52Axh+PGNvbG ehs4JmYoefb5mrm5fwzRg5 EtIfJHVxepTeqFdpFBZ0k2MrHc9 0M60wUCajUFPbYURdNOUoNYCptE rpuo3hjH2cFi4+PGNvbCB3 rRS6hK9iPBAuElA9YHfbK242VuK cxFQqIaezt9xiy6awtMo2MaNdOK XifwPoqTokYWS0s2RnEi88 Z80yQVbePOXzWVVdNZEtLEDtgGh fhi7dsI1rBi6+DO9zj3gffu17rL 48dHI+RYRsBVN7hRohTTbf CAHicS1kSKdaMoO6LWXoEsShsK5 9lCCuGNofEm6ffBezgJerEA5rLS Aznulxl183YjUvg3pqZCDb jNDoJVhmTTI8J81bu9E5AAJyDKL vNNE2eLC0eJ6hfKgggrvatLOtnI jssqCehKufMTnmWGhkT697 IHRvcDsnPlBhdGllbnQgTmFtZTo 1F4AaPki6ZIQswHnxRK9wbOUwCO khTw0mbYzcoLzbHA3rXWJe iunzl053YtIeu3yuTJUtwMTaPWo jFIC5G31bo6W0HENrOFJfCUU6iH K8kZ1vpKjojizzzRVicKrk bhAqzCamZQowVLaaE321AXGvcTi cHsVkcxReFLTycID7DI15ZO99hL Xlh5M0oFT1J5XhNSSuocdm hzqtqDV3XUZhWWWztQ61Wg9ooAo jDs0mPPDjREK8JZTvzFYbQ1QhuC 9uBiJkOAKpZFQeO4JzrQQx YYzmY804SXtbEqV3UUVimcRoT9A uVKEqzGrbTuG6b5N1Nk4EC8N2LG 90SQ68vPIii7H9iBY4Y0Jz JBRmowasocpmcSD8XLVkSZShbR8 5Lo4ugCsaDp2gFAJnTNV3ZPIudM PyS8FqvN5gUpEyJLRnPNPv T7LftYByDNpyS618DCniIfA1MNH jrlCnQ2NaFTMljCujCgH5i0C1Pu 0TOZd1OQ38PP13iSPkz7Y1 aVI2X6IqAOGakksskcnrtOP7MNJ pXYNibS23Yw5zuHsbSd2qQYUsET I6QTKtvVQgI0RuaX3hImUo QQSxURRuG5ZxlRAmLXsxV300UTu aDvZ2VLVqrfBbF3AhBZCkeZsvNb L7n5O6Tg9ZHYUxSU78UHJ7 aRV0OU68SW54N3UvSfivlBBucHL +PHRhYmxlIHdpZHRoPScxMDAlJy UaiNqbLS1wTj6wSMYcAAYv bCqioVVyMcJmz9piXZYqOArvBI5 ipXwdE4AjmME0IDCsu0e4Bl71W9 7jJ1NvcWY+OGJspQS5oLX6 uF5pAmKhRtZ2GFwxA250YaKuoRN bNflrm5niu3kvwNg7DsD6KSAmxd ScbJswRGR1h1QtJa61M90f IHdpZHRoPSIxNSUiIHZhbGlnbj0 swC1aTz0+RWDlnFF6nHH2nC3fAp EuXuW1SQfzW757FeZgwNYx Qcqcv0nga2zcwDm8ObSfDIOkrfJ xqFkfVXL1z7SdBc60H0TvbGnwa9 KxYum6ax71iKIpe9F5cSX9 P4ToIVUweojzdEMnwLbvHS2mGMO chsmtAERgiU1uEVAhZ8a1YbPpDl R6LTxfY7WahcX3TXCrsEJe CNctEWA5D81ob1F9HAUrBILtPVS 4lQF6aQ2hhArwbzyurHSdcUhflt GkiXhfEDbrSFzrT688JWRm vHksXHHwmS4cXQEtfCTnjKoiSK9 pNZVpigltPtLLGrOpV3DcCLtQIQ 4gQTwvdGQ+GZAkNUX4lBtt OMwtIYKeqK4bVJOlU9v3MnNoYjQ 5GFpiC3CbHOYctqvfNt77xY9qTy XuXoD8SQxhT2FnogU1NROr wRHhOTntNHM1B56pj7F2CHTjNGS vDJA6yIF5kA0epXkmzcogpZLtqN lafmQfpSwwCIubSUyzV158 VGAzcFunUgC5NoIpMcP9MFH3M6B rYrh4LIGqyRqhAW4exIJsPGrwPs 6juKyitWmqXO0pJUSjnpso TICpcG8qHFAehCPxeBgyAJ1uOSC rysney439VmXrBEU0JTBhdARiD6 PsaD3iWcUrGFOyMSWvL3Yt eRRzIJmkU592BNmzTmR1UAYxcnP dQ2PeLGVriIswOfB1a8O2Hb65RY BZZWFyczwvdGQ+PHRkIHN0 zZycTCxkIQOurR7fDJYcF5g5CtP wMwS6DNnbK4JtKUHmklmzXe85nR 3zVlPfOkD4ZTipH2TvguK5 KGNchEFqTCevAGC6Y61wk7Z6WFY yVRAvXNR7sDB0aN1veMsqvbcypW VmdDsgdmVydGljYWwtYWxp F199GUGumSeyNo4iqKP0H3RwQqj 9PDKzqZiePG2noBCjOElwZz1pwB qaoHptAD0bXYPsswvyQJCa fJ5mHMIygKSusNepHX9vNFBnjug uf635BwOgBRM0NYZlcHVfR1CmsZ 3kBhIeLJJxPTDlT8YnpVJr FZpxB520EKdtKbV9YAAowhHeG4N wOSNllRczIcB1z4J8Lh1ClPQhOO ZvZT89NN67JD52L1NsGjpd dGFibGU+PHRhYmxlIHdpZHRoPSc uISIgJeMqpRusAA1lKd7jQPMeRY WorQezrSKePiPkk3jbMHJh KXuoIL6uyVtdH5SdqKN8NXDhr7c 2Mk56C94kP8FeiZR+CENkmVP7aO D5lD5bHwYvPsU8DPkwL128 WkBlpZWtDzfvu0mjs2sycZh6BxA tTBFdekKikLzxRQX0r9XaFw60I0 9sIHdpZHRoPSIyMCUiIHZh yGcdtv9qhF2pJl1+IZSsqSK8bYP 2mM4xNuJnXwO3KDkkW789LzMuzQ VkTqyvE56vZ7YduKB+PHRy Msh9HWPurZqwIM9hmUUoCPlyYj6 jUJA4SwSmCnUoEUexX7YxVZMhyp xqsxwnbRF2GITwWUOquS62 Yu6piGipBd6lNOEdHAU5OMOiaVZ dP8LbpV7zRiSvFHTsSOJkF5VdiR TvXSykH436NUmaAtR8UWUb vzHeZ4HhTFQqiTgcThN0h9M6Nf6 WqUhjcITjBK2zBsMzSSh8K4EyVh v4WHVyhKqcZD4cyIQfNPiq Tg6vfIjgzXguJR2cOFFpxpone97 6WbOjo5qpCIWlkXZsAJayLSN9L9 7ya2R8GHHjVLMeUCA8bXK7 eA5uzDevyegljHYmcQtvbkNvzLp iXMxqXJorX677NXRroNmvHwDKFj c9D6HtAtf1CWNfqBsjVL2e dHLfUEqxMa1pbEvgbDfxNN5mISN oanenf135YyHvq1veZXIggCVhIN dbBNF9E37ph9R9CJSgSMAe YAD0yQA5fL8pkWbymhdfqTJetPf zzbUybTqxIPnxPEmeL896MKZgmS miFi8LUvh2R3CmEep5KKSn cPqtKZ5qkTGyVKdwKa8keYehwXg vUB3vUMVwddbjp354XdGcb7nlAY IklOCeLWcgSJJ7H12sl1F9 MWTqNKUuBIJ0tNM7eJ4qlQwljxc gbGVmdDsgdmVydGljYWwtYWxpZ2 46IHRvcDsnPlBheWVyOjwv dGQ+GE84aq01H4AfViuaPef7KRU tMUF3wOH7sC3rCCWpXOlmq6D6sV V2O3BpitPpvn5zf7reZWUp ZTog (more content not included)... Normal [facility] Consent for Procedure/Surger yon 03-21-2022 Consent for Procedure/Surgery [id number]:127 Normal [facility] Consent for Treatmenton Consent for Treatment [id number]:127 [facility] Inpatient Patient Summaryon 03-21-2022 Inpatient Patient Summary [place] [id number] Clinical Summary Person Information Name: GUI ORTIZ SR Age: 67 Years : 1955 Sex: Male PCP: Angella Jaquez MD Marital Status: Phone: [phone] Race: White Ethnicity: or Language: Swedish Visit Id: Visit 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 / ELEVATED PSA / HEMATURIA Speciality: Acuity: Enc Type: Outpatient Med Service: Surgery Arrival: 03/21/2022 10:25:04 Discharge: Dispo Type: Address: [address] [place] [address] [id number] Provider Notes: Diagnosis: Problems Active Asymptomatic microscopic [...] Follow up: With: Address: When: Casper RAUSCH [address] [place] [address] [employer] (1) Within 5 to 7 days With: Address: When: [place] [address] [employer] (1) Type Location Start [facility]RO Office Visit [facility] [place] 05/22/2022 11:00 AM 05/22/2022 11:15 AM Confirmed Patient Education Information: Normal [facility] IntraOperative Documentson 1 IntraOperative Documents [id number]:127 [facility] Main OR Intraoperative Recor don 03-21-2022 Main OR Intraoperative Record IntraOp Document Type FTURO Summary Primary Physician: Casper RAUSCH MD Finalized Date/Time: 03/21/22 11:42:35 Pt. Name: GUI ORTIZ SR/Sex: 1955 Male Med Rec #: [id number] Physician: Casper RAUSCH MD Financial #: [id number] Pt. 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 Surgeon Description CYSTOSCOPY Primary Procedure Yes Primary Surgeon SHALOM MONTES DE OCA, Casper Grace Start 03/21/22 11:17:00 Stop 03/21/22 11:23:00 Anesthesia Type Local Surgical Service Urology Wound Class 2 - Clean-Contaminated Last Modified By: Mao EASON, ZAHRAAOR, Irina 03/21/22 11:40:42 General Case Data FTURO [...] ELEVATED PSA / HEMATURIA Last Modified By: Mao EASON, SONIA, Irina 03/21/22 11:18:29 Post-Care Text: The patient is [...] Position Verified Availability Equipment, Medication Time Out Casper RAUSCH MD, Verified (If Participants Mao EASON, ZAHRAAOR, Applicable) Nikole Arevalo CST, Kimberly A Time [...] SONIA Cavanaugh RN, Ruthann 03/21/22 11:42 Normal [facility] Main OR Preoperative Recordo n 03-21-2022 Main OR Preoperative Record Holding Area Document Type FTURO Summary Primary Physician: Casper RAUSCH MD Finalized Date/Time: 03/21/22 11:17:09 Pt. Name: GUI ORTIZ SR /Sex: 1955 Male Med Rec #: [id number] Physician: Casper RAUSCH MD Financial #: [id number] Pt. Type: O Room/Bed: / Admit/Disch: 03/21/22 [...] Complaints of Pain: No Skin Integrity Intact, [place], Warm, & Dry Vitals - EU Blood Pressure 100/70 Pulse 59 bpm Respirations 16 br/min SPO2 98 % Additional CHANEL EASON Reviewed Yes Specimens Collected Last Modified By: SONIA Cavanaugh RN, Ruthann 03/21/22 11:17:07 General Comments: Temp 36.4 Temporal Finalized By: Mao EASON, Irina SCOTT Document Signatures Signed By: Adwoa Little LPN 03/21/22 10:38 SONIA Cavanaugh RN, Ruthann 03/21/22 11:17 Normal [facility] Operative Reporton 2 Operative Report Patient: SARINA ORTIZ SR Age: 67 years Sex: Male [...] with antibiotic coverage, Follow up arranged. Normal [facility] Comment on above: Result Comment: Elec tronically Signed By: Casper RAUSCH MD\.br\Date and Time Signed: 03/21/22 11:28 EDT Outpatient Surgery Discharge Instructionon 03-21-2022 Outpatient Surgery Discharge Instruction [address] [address] Patient Discharge Instructions PERSON INFORMATION [...] Follow up: With: Address: When: Casper RAUSCH [address] [place] [address] [place] [address] Business (1) Within 5 to 7 days With: Address: When: Casper [address] [address] [facility] (1) Type Location Start [facility] Office Visit [facility] [place] 05/22/2022 11:00 AM 05/22/2022 11:15 AM Confirmed Comment: PATIENT EDUCATION INFORMATION Instructions: Dominique, GUI ORTIZ SR, have received the attached patient education materials/instructions and have verbalized understanding: May we do a follow up call? Yes No I was present when discharge instructions were given Patient Signature Date Clinican/Nurse Signature Date You may receive a survey from [facility] asking you to rate your care experience. Your feedback is important and will help us understand what we do well and how we can improve the quality of care we provide to you, your loved ones and our community. It?s an honor to serve you. Thank you for choosing [facility] Normal [facility] Patient Educationon 03-21-20 Patient Education Normal [facility] Urine [facility] ([facility])on 03-21-2022 [facility] Method of Extraction Voided Normal [facility] Comment on above: Performed By: #### 1 [id number] ####[facility] [address] [place] [address] [facility] Number of Jars 1 Invalid Interpretation Code [facility] Comment on above: Performed By: #### 1 [id number] ####[facility] [address] [place] [address] [facility] Specimen Urine Normal [facility] Comment on above: Performed By: #### 1 [id number] ####[facility] [address] [place] [address] [facility] Type of Service Technical Only Normal [facility] Comment on above: Performed By: #### 1 [id number] ####[facility] [address] [place] [address] Lab Reportson 03-15-2022 Lab Reports [id number]:127 Normal [facility] PSA, FREE AND TOTAL RATIOon 03-13-2022 % Free PSA 15.5 % Normal [facility] Comment on above: Result Comment: The table [...] men. Performed By: #### P SAFREE #### [facility] [address] [place] [address] Dr. Rehana Martinez Prostate specific Ag [Mass/Vol] 4.9 ng/mL Critically high 0.0-4.0 [facility] Comment on above: Result Comment: Arnoldo CHOPRAIA methodology. . According to the [employer], Serum PSA should decrease and [...] disease. Performed By: #### P SAFREE #### [facility] [address] [place] [address] Dr. Rehana Martinez PSA, Free 0.76 ng/mL Normal N/A [facility] Comment on above: Result Comment: Arnoldo ALEJANDRO methodology. Performed By: #### P SAFREE #### [facility] [address] [place] [address] Dr. Rehana Martinez CREATININEon 12-14-2021 Creatinine [Mass/Vol] 1.01 mg/dL Normal 0.70-1.30 [facility] Comment on above: Performed By: #### C MAXINE #### [facility] [address] [place] [address] Dr. Rehana Martinez EGFR-AF BULGARIAN >60 Normal >=60 [facility] Comment on above: Performed By: #### C MAXINE #### [facility] [address] [place] [address] Dr. Rehana Martinez EGFR-NON AF BULGARIAN >60 Normal >=60 [facility] Comment on above: Performed By: #### C MAXINE #### [facility] [address] [place] [address] ABD/PELV W CONon [...] BRANDIE RUDD Date: 2021-12-14 11:36 Normal [facility] Vital Signs Date Time Vital Sign Value Performing Clinician Yunier nunez 03-27-2022 10:11-0400 Blood Pressure Location [facility] 03-27-2022 10:11-0400 Diastolic blood pressure 57 mm[Hg] [facility] 03-27-2022 10:11-0400 Heart rate 57 /min [facility] 03-27-2022 10:11-0400 Respiratory rate 16 /min [facility] 03-27-2022 10:11-0400 Systolic blood pressure 154 mm[Hg] Casper RAUSCH [facility] 12-05-2021 08:16-0400 Blood Pressure Location Monica Mondragon Jr. [facility] 12-05-2021 08:16-0400 Diastolic blood pressure 84 mm[Hg] Monica Mondragon Jr. [facility] 12-05-2021 08:16-0400 Heart rate 75 /min Monica Mondragon Jr. [facility] 12-05-2021 08:16-0400 Systolic blood pressure 118 mm[Hg] Monica Mondragon Jr. [facility] Encounters Encounter Date Encounter Type Care Provider Facility Start: 02-11-2024 ambulatory ELIZABETH Teague ty:PRICILA Chavis Start: 05-16-2023 ambulatory [facility] Start: 05-14-2023 End: 05-14-2023 ambulatory VALENTINA CABRERA [facility] Start: 05-06-2023 Evaluation and manag ement of inpatient ELINA [facility] Start: 05-03-2023 End: 05-04-2023 ambulatory [facility] Start: 05-01-2023 Evaluation and manag ement of inpatient [facility] Start: 04-30-2023 Evaluation and manag ement of inpatient [facility] Start: 04-30-2023 Evaluation and manag ement of inpatient [facility] Start: 04-30-2023 Evaluation and manag ement of inpatient [facility] Start: 04-29-2023 Evaluation and manag ement of inpatient [facility] Start: 04-27-2023 Evaluation and manag ement of inpatient [facility] Start: 04-26-2023 Evaluation and manag ement of inpatient [facility] Start: 04-25-2023 Evaluation and manag ement of inpatient [facility] Start: 04-25-2023 Evaluation and manag ement of inpatient KAREY J [facility] Start: 04-24-2023 Evaluation and manag ement of inpatient [facility] Start: 04-24-2023 Evaluation and manag ement of inpatient [facility] Start: 04-23-2023 [facility]: 04-23[facility]23 [facility] Start: 04-23-2023 End: 04-24-2023 Evaluation and management of inpatient [facility] Start: 04-23-2023 Evaluation and manag ement of inpatient KAREY Dhaliwal [facility] Start: 04-23-2023 [facility] Start: 04-22-2023 Evaluation and manag ement of inpatient [facility] Start: 04-22-2023 Evaluation and manag ement of inpatient [facility] Start: 04-22-2023 Evaluation [facility] manag ement [facility] Start: 04-22-2023 End: 05-01-2023 Evaluation and management of inpatient [facility] Start: 04-09-2023 End: 04-10-2023 Encounter for preprocedural cardiovascular examination [facility] Start: 04-09-2023 End: 04-10-2023 ambulatory [facility] Start: 04-04-2023 ambulatory [facility] Start: 03-23-2023 Evaluation and manag ement of inpatient KAREY Dhaliwal [facility] Start: 03-23-2023 Evaluation and manag ement of inpatient KAREY Dhaliwal [facility] Start: 03-23-2023 Evaluation and manag ement of inpatient DOMENIC [facility] Start: 03-22-2023 Evaluation and manag ement of inpatient JENNA [facility] Start: 03-22-2023 Evaluation and manag ement of inpatient RODGER [facility] Start: 03-21-2023 End: 03-23-2023 Evaluation and management of inpatient [facility] Start: 01-29-2023 End: 01-30-2023 ambulatory ELIZABETH LINDSAY Facility: [facility] Start: 01-29-2023 End: 01-29-2023 Patient encounter procedure ELIZABETH LINDSAY [facility] Start: 09-11-[address] [facility] Start: 09-06-2022 End: 09-07-2022 ambulatory [facility] Start: 09-04-[address] [facility] Start: 08-06-2022 End: 08-07-2022 ambulatory [facility] Start: 08-04-2022 End: 08-05-[address] ANGELLA JAQUEZ . Facility: Start: 07-25-2022 End: 07-26-[address] ANGELLA JAQUEZ . Facility: Start: 03-27-2022 End: 03-28-2022 ambulatory Casper RAUSCH Facility:[facility] Start: 03-27-2022 End: 03-27-2022 Patient encounter procedure Casper RAUSCH [facility] Start: 03-21-2022 End: 03-22-2022 ambulatory Casper RAUSCH [facility] Start: 03-21-2022 End: 03-21-2022 Patient encounter procedure Casper RAUSCH [facility] Start: 03-12-2022 End: 03-13-[address] CASPER RAUSCH Facility: Start: 02-05-2022 End: 02-05-2022 Patient encounter procedure Monica Mondragon Jr. [facility] Start: 12-14-2021 End: 12-15-2021 ambulatory MONICA MONDRAGON JR Facility: Start: 12-05-2021 End: 12-05-2021 Patient encounter procedure Monica Mondragon Jr. [facility] Procedures Date Procedure Procedure Detail Performing Clinician Start: 05-16-2023 Follow-up visit MICHAEL IE PATRICK Start: 05-14-2023 Follow-up visit MICHAEL IE PATRICK Start: 04-04-2023 Follow-up visit MICHAEL IE PATRICK Start: 09-11-2022 Follow-up visit MICHAEL IE PATRICK Start: 09-04-2022 Follow-up visit MICHAEL IE PATRICK Start: 07-25-[address] FABIOLA JAQUEZ . Comment on above: Performed By: #### P [facility] #### [facility] [address] [place] [address] Dr. Rehana Martinez Start: 03-21-2022 Cystoscopy ELIZABETH JOHNSTON Start: 12-14-[address] FABIOLA JAQUEZ . Comment on above: Performed By: #### P SAD ####[facility] [id number] [place], [place] [address]SrStarr Martinez Start: 01-23-2018 Cystoscopy Monica stephen Jr. Comment on above: 07/22/09, 01/23/18 07/22/09, 01/23/18 Immunizations Immunization Date Immunization Notes Care Provider Cipriano moody 06-20-2021 SARS-CoV-2 (COVID-19 ) mRNA BNT-162b2 vax Casper RAUSCH [facility] 09-13-2020 SARS-CoV-2 (COVID-19 ) Ad26 vaccine, recombinant Monica Mondragon Jr. [facility] 08-22-2020 SARS-CoV-2 (COVID-19 ) Ad26 vaccine, recombinant Monica Mondragon Jr. [facility] NEGATED: Highlighted row has not occurred!12-05-2021 influenza virus vaccine, unspecified formulation Monica Mondragon Jr. [facility] Payers Date Payer Category Payer Medicare [id number] 1960 Unknown [id number] 1955 Unknown [id number] 2.16.84 [id number] 1955 Unknown [id number] 2.16.84 [id number] 1955 Unknown [id number] 2.16.84 [id number] 1955 Unknown [id number] 2.16.84 [id number] 1955 Unknown [id number] 2.16.8 [id number] 1955 Unknown [id number] 2.16.8 [id number] 1955 Unknown [id number] 2.16.8 [id number] 1955 Unknown [id number] 2.16.8 [id number] Social History Date Type Detail Facility Start: 12-05-2021 Tobacco smoking status Heavy t obacco smoker (finding) [facility] Sex Assigned At Male [facility] Functional Status Date Assessment Result Facility 01-29-2023 Functional Status N/A [facility] 03-27-2022 Functional Status N/A [facility] 03-15-2022 Functional Status N/A [facility] 12-05-2021 Functional Status N/A [facility] Clinical Notes 05-23-2021 to 05-16-2023 LaboratoryLaboratoryLaboratoryLaboratory Note Date & Type Note Facility 05-16-2023 Note [facility] 05-16-2023 Note [facility] 05-16-2023 Note [facility] 05-14-2023 Note [facility] 05-14-2023 Note [facility] 05-01-2023 Note Patient provided a c opy of the AVS. All questions answered. Patient discharged with belongings and taken down with transport via wheelchair and family at bedside. [facility] 05-01-2023 Note [facility] 05-01-2023 Note [facility] 05-01-2023 Note [facility] 05-01-2023 Note [facility] 04-30-2023 Note [facility] 04-30-2023 Note [facility] 04-29-2023 Note [facility] 04-29-2023 Note [facility] 04-29-2023 Note [facility] 04-29-2023 Note [facility] 04-28-2023 Note [facility] 04-28-2023 Note [facility] 04-27-2023 Note [facility] 04-27-2023 Note [facility] 04-27-2023 Note [facility] 04-27-2023 Note [facility] 04-26-2023 Note [facility] 04-26-2023 Note [facility] 04-26-2023 Note [facility] 04-26-2023 Note [facility] 04-26-2023 Note [facility] 04-26-2023 Note [facility] 04-25-2023 Note [facility] 04-25-2023 Note Attempted to call wi fe to get information and give updates. Was unable to reach her, will continue to try. [facility] 04-25-2023 Note [facility] 04-25-2023 Note [facility] 04-25-2023 Note [facility] 04-24-2023 Note Patient is still on vent support. Per RN was off and placed back on yesterday. Consult for s/p CABG. SW to follow. [facility] 04-24-2023 Note [facility] 04-24-2023 Note Physical Therapy Patient intubated/sedated at this time. PT will check back and follow as appropriate. Stella Butsos, CHANTEL [facility] 04-24-2023 Note [facility] 04-24-2023 Note Occupational Therapy Cancel Note Reason: Patient intubated and sedated at this time. OT will continue to follow and will re-attempt as able. Time in: 0808 Check no charge Thelma Jin MOT, OTR/L, CLT [facility] 04-24-2023 Note [facility] 04-24-2023 Note [facility] 04-23-2023 Note [facility] 04-23-2023 Note [facility] 04-23-2023 Note [facility] 04-23-2023 Note [facility] 04-23-2023 Note [facility] 04-22-2023 Note TRIGGER: PRESSURE 1:1 FULLY AUGMENTED [facility] 04-22-2023 Note TRIGGER: PRESSURE 1:1 FULLY AUGMENTED [facility] 04-22-2023 Note INSERTED WITHOUT COM PLICATION USING STERILE TECHNIQUE; DRAINING CLEAR YELLOW URINE; TO BE MONITORED BY ANESTHESIA FOR DURATION OF THE CASE [facility] 04-22-2023 Note [facility] 04-22-2023 Note [facility] 04-22-2023 Note [facility] 04-09-2023 Note [facility] 04-04-2023 Note [facility] 04-01-2023 Note [facility] 03-23-2023 Note [facility] 03-23-2023 Note [facility] 03-22-2023 Note [facility] 03-22-2023 Note [facility] 09-11-2022 Note [facility] 09-04-2022 Note I reviewed with the resident the medical history and the resident???s findings on physical examination. I discussed with the resident the patient???s diagnosis and concur with the treatment plan as documented in the resident note. Shmuel Vásquez MD [facility] 09-04-2022 Note [facility] 03-27-2022 Hospital Discharge instructions Patient Education [...] urethra. Follow these instructions at home: Take thcp-eao-mtmqjcl and prescription medicines only as told by [...] 06/03/2006 Document Revised: 04/28/2019 Document Reviewed: 07/08/2017 [employer] Patient Education 2020 [employer]. Follow Up Care 03/21/2022 11:25:28 With:Giancarlo Campbell MD, Monica Menendez, URO Address: [facility] [address] [place] [address]- When: Unknown [facility] 03-21-2022 Note [id number] [facility] 02-27-2022 Hospital Discharge instructions Follow Up Care 02/27/2022 13:20:12 With:Casper RAUSCH Address: [address] [place] [address]- Business (1) When:5 to 7 days With:Casper RAUSCH Address: [address] [place] [address]- Business (1) When: Unknown [facility] 12-05-2021 Hospital Discharge instructions Patient Education [...] Follow these instructions at home: Medicines Take ceti-smg-nwfkggc and prescription medicines only as told by [...] or the blood stops without treatment. Take vqll-rkn-ntngulo and prescription medicines only as told by your health care provider. Drink enough fluid to keep your urine clear or pale yellow. This information is not intended to replace advice given to you by your health care provider. Make sure you discuss any questions you have with your health care provider. Document Released: 06/03/2006 Document Revised: 10/28/2019 Document Reviewed: 07/06/2017 [employer] Patient Education 2020 [employer]. Follow Up Care 05/30/2021 15:33:59 With:Giancarlo Campbell MD, Monica Menendez, URO Address: [facility] [address] [place] [address]- [phone] When: Unknown [facility] 05-23-2021 Hospital Discharge instructions Follow Up Care 05/23/2021 11:27:47 With:ELIZABETH LINDSAY PA-C, URL Address: [address] [place] [address] When:Within 1 Year(s) Comments:w/PSA [facility] Evaluation + Plan note Future Appointments Appointment Date:05/22/2022 11:00:00 AM Scheduled Provider:Monica Mondragon Jr., MD Location:[facility] Appointment Type:URO Office Visit Diagnostic Tests PendingPSA Total 12/05/21 Future Scheduled TestsPSA Free & Total 05/30/21 [facility] Evaluation + Plan note Future Appointments Appointment Date:05/22/2022 11:00:00 AM Scheduled Provider:Monica Mondragon Jr., MD Location:[facility] Appointment Type:URO Office Visit Future Scheduled TestsPSA Free & Total 05/30/21 [facility] Evaluation + Plan note Future Appointments Appointment Date:03/27/2022 09:45:00 AM Scheduled Provider:Casper RAUSCH MD Location:[facility] Appointment Type:URO Office Visit Appointment Date:05/22/2022 11:00:00 AM Scheduled Provider:Monica Mondragon Jr., MD Location:[facility] Appointment Type:URO Office Visit Diagnostic Tests PendingUroVysion Fish and Urine Cyto ([facility]) 03/21/22 Future Scheduled TestsPSA Free & Total 05/30/21 [facility] Evaluation + Plan note Future Appointments Appointment Date:09/18/2022 09:15:00 AM Scheduled Provider:Monica Mondragon Jr., MD Location:[facility] Appointment Type:URO Office Visit Diagnostic Tests PendingPSA Free & Total 06/17/22 Future Scheduled TestsPSA Free & Total 05/30/21 [facility] Evaluation + Plan note Future Appointments Appointment Date:02/11/2024 08:30:00 AM Scheduled Provider:ELIZABETH LINDSAY PA-C Location:[facility] Appointment Type:URO Office Visit Diagnostic Tests PendingPSA Total 01/29/23 [facility] Hospital course Narrative No data available for this section [facility] Hospital Discharge instructions No data available for this section [facility] Progress note No data available for this section [facility] Summary Purpose Family History No Family History Records FoundNo Family History Records FoundNo Family History Records Found Advance Directives No Advanced Directives Records FoundNo Advanced Directives Records FoundNo Advanced Directives Records Found Additional Source Comments Care Team (unrecognized sect ion and content) Personnel Name: Angella Jaquez MD Address: [address] [place] [address] Personnel Name: Angella Jaquez MD Address: [address] [place] [address] Personnel Name: Angella Jaquez MD Address: Address: [address] [place] [address] Personnel Name: Angella Jaquez MD Address: Address: [address] [place] [address] Personnel Name: Angella Jaquez MD Address: Address: [address] [place] [address] (unrecognized sect ion and content) No Status Records FoundNo Status Records FoundNo Status Records Found INFORMATION SOURCE (unrecogn ized section and content) DATE CREATED AUTHOR 08/10/2022 [facility] DATE CREATED AUTHOR AUTHOR'S ORGANIZ ATION 02/13/2023 [facility] DATE CREATED AUTHOR AUTHOR'S ORGANIZ ATION 05/21/2023 [facility] FOR RECORDS PERTAINING TO PATIENTS WHO [...] BE BASED ON THE PRIMARY CLINICAL RECORDS. [employer] provides no warranty or guarantee of the accuracy or completeness of information in this document.
--- NOTE | 2023-06-06 14:40 | CA_ITS ---
Patient Name: ESEQUIEL ORTIZ MR#: [id number] : 1955 Exam Date: 06/06/2023 Ordering Doctor: VALENTINA CABRERA CNP ECHOCARDIOGRAM REPORT PROCEDURE: CA ECHO DOPPLER COMPLETE INDICATIONS: Heart failure with reduced ejection fraction, CABG, hypertension COMPARISON: None. DESCRIPTION: COMPLETE ECHOCARDIOGRAM Real-time transthoracic echocardiography with 2D, M-mode, spectral and color flow Doppler performed. QUALITY: Technical quality was good. 64 , 133#, BSA 1.64 m2 LEFT VENTRICLE: Normal chamber size. Thickened septal wall. LV EF: Global left ventricular systolic function is normal; visually estimated ejection fraction is 55 to 60%. DIASTOLIC: Diastolic function is indeterminate. ATRIAL SEPTUM: Visually appears intact. LEFT ATRIUM: Mild dilatation. RIGHT ATRIUM: Normal chamber size. RIGHT VENTRICLE: Normal chamber size. Normal right ventricular systolic function. TRICUSPID VALVE: Normal mobility and thickness. No stenosis with trivial regurgitation. No evidence of pulmonary hypertension. RVSP 32 mmHg MITRAL VALVE: Normal mobility and thickness. No evidence of mitral valve stenosis. There is no mitral annular calcification. Trivial mitral regurgitation. AORTIC VALVE: Normal trileaflet appearance. No visible sclerosis. Normal leaflet mobility. No evidence of aortic valve stenosis. No aortic regurgitation. AORTIC ROOT: Normal diameter and appearance. PULMONIC VALVE: Normal thickness and mobility. No stenosis. Trivial regurgitation. PERICARDIUM: No evidence of pericardial effusion. IVC: Collapses with inspirations. IVC is normal in size. CONCLUSION: 1. Global left ventricular systolic function is normal; visually estimated ejection fraction is 55 to 60% 2. Normal right ventricular size and systolic function 3. The left atrium is mildly dilated 4. Diastolic function is indeterminate 5. No significant valvular abnormalities Adult Echocardiography Procedure Report Left Ventricle LVEDD (3.7 - 5.6 cm): 4.00 cm LVESD (2.2 - 4.0 cm): 2.81 cm LVIVS thickness (0.6 - 1.2 cm): 1.06 cm LVPW thickness (0.5 - 1.0 cm): 9.04 mm LVOT Max Gradient: 3 mm[Hg] Peak Velocity (LVOT): 83.50 cm/s Mean Velocity (LVOT): 51.60 cm/s LVOT Diameter 2.10 cm Left Ventricular Ejection Fraction: 57.40 % Left Atrium LA Volume Index (2D A2C): 81908 mm3 Left Atrium Systolic Dimension: 3.40 cm Mitral Valve MV E to A Ratio: 1.10 Mitral Valve A-Wave Peak Velocity: 64.20 cm/s Mitral Valve E-Wave Peak Velocity: 73.50 cm/s Right Ventricle Aorta AO Root Diam: 3.80 cm Aortic Valve AoV Area (Peak Robert): 2.60 cm2 AoV Area (VTI): 2.49 cm2 Peak Velocity(Antegrade Flow): 111.00 cm/s Peak Gradient(Antegrade Flow): 5 mm[Hg] Mean Velocity(Antegrade Flow): 75.60 cm/s Mean Gradient(Antegrade Flow): 3 mm[Hg] Velocity Time Integral: 26.50 cm Tricuspid Valve Peak Velocity (Regurgitant Flow): 271.00 cm/s Peak Velocity: 40.80 cm/s Pulmonic Valve Peak Velocity: 80.50 cm/s, 87.60 cm/s Peak Gradient: 3 mm[Hg] Right Atrium Dictated by: Kendell Mathew M.D. on 06/07/2023 at 15:58 Approved by: Kendell Mathew M.D. on 06/07/2023 at 16:03
== END 2023-06-06 13:54 | disposition home or self-care (01) ==
LOC: CARD 13:53
PROVIDERS: PCP Family Medicine; Visit Provider Nurse Practitioner Family
DX: I50.22 Chronic systolic (congestive) heart failure (principal)
CPT/HCPCS: 93306

== ENCOUNTER 2023-06-14 14:56 | Outpatient (RCR) | payer MEDICARE, SELFPAY ==
--- NOTE | 2023-06-05 08:43 | CR1_ITS ---
[facility] Test Date: 2023-06-05 Pat Name: ESEQUIEL ORTIZ Department: Room: - Gender: Male [employer]: : [id number] Requested By: ANGELLA JAQUEZ Order Number: [id number] Reading MD: GABRIELA WHITE Interpretive Statements Session Date: Electronically Signed On 06-06-2023 7:30:44 EST by GABRIELA WHITE
== END 2023-06-14 17:06 | disposition home or self-care (01) ==
LOC: CR 14:56
PROVIDERS: PCP Family Medicine; Visit Provider Family Medicine
DX: Z95.1 Presence of aortocoronary bypass graft (principal)
CPT/HCPCS: 93798

== ENCOUNTER 2023-06-27 19:18 | Emergency (ER) | payer MEDICARE, SELFPAY ==
[2023-06-27 19:22] VITALS: BP 160/100; PULSE 87; RESP 18; TEMP 36.6; O2SAT 99; BMI 24.2
--- OUTSIDE RECORDS SUMMARY | 2023-06-27 19:28 | XMS_ITS | CCD ---
Author Name Unknown Address [address] [place] [address] Organization [facility] Care Team Providers Care Director Cardiovascular Name Role Phone Angella Jaquez Primary Care [...] CHAITANYA Referring Unavailable OMBALLI, JACOB Attending Unavailable PARENTEAU, SHMUEL Referring Unavailable OMBALLI, JACOB Attending Unavailable PARENTEAU, SHMUEL Attending Unavailable PERNE, JUANITA Attending Unavailable JIGAR, SAEID Attending Unavailable RICKVALENTINA Attending Unavailable PATRICKDOMENIC Referring Unavailable KULAKOWSKI, KAREY Dhaliwal Referring Unavailabl e CLIFFEL, CESAR Referring Unavailable RAKANZANDER Referring Unavailable CARRIZO, CHAITANYA Referring Unavailable DARSHANRODGER Referring Unavailable Allergies Allergy Classification Reported Allergen(s) Allergy Type Date of Onset Reaction(s) Facility (1 source) No Known Medication Allergies; Translations: [No Known Medication Allergies] Propensity to adverse reactions (disorder) [facility] Repository Medications Current Medications Medication Drug [...] Daily, # 90 cap(s), Refills(s) 3, Pharmacy: [facility]/pharmacy #[id number], 162, cm, 12/05/21 8:20:00 EDT, Height/Length [...] procedure, # 2 cap(s), Refills(s) 0, Pharmacy: [facility]/pharmacy #[id number], 162, cm, 12/05/21 8:20:00 EDT, Height/Length [...] disease (8 sources) Atherosclerotic heart disease of [place] coronary artery without angina pectoris; Translations: [Unstable [...] on: 05/16/2023 03:51 PM Modules accepted: Orders [facility] 29 Addended by: PASCUAL VELARDE on: 05/16/2023 03:50 PM Modules accepted: Orders [facility] Follow-Upon 05-16-2023 Follow-Up Normal [facility] 36on 05-03-2023 36 Normal [facility] Telephoneon 05-03-2023 Telephone [phone] Gui Ortiz 1955 M Date Provider Department [place] 05/03/2023 SAEID MARISCAL HVCVASENDAlicia [place] [facility] Family History Family history unknown: Yes Normal [facility] 36on 05-02-2023 36 Normal [facility] 30on 05-01-2023 30 Normal [facility] 30 Normal [facility] BASIC METABOLIC PANELon 04-17 Anion gap [Moles/Vol] 11 mmol/L Normal 7-20 [facility] Comment on above: Performed By: #### L [id number] ####[facility] ([facility])[address] [place] [address] Calcium [Mass/Vol] 8.4 mg/dL Low 8.6-10.3 [facility] Comment on above: Performed By: #### L [id number] ####[facility] ([facility])[address] [place] [address] Chloride [Moles/Vol] 109 mmol/L High 98-107 [facility] Comment on above: Performed By: #### L [id number] ####[facility] ([facility])[address] [place] [address] CO2 [Moles/Vol] 22 mmol/L Normal 21-31 [facility] Comment on above: Performed By: #### L [id number] ####[facility] ([facility])[address] [place] [address] Creatinine [Mass/Vol] 0.62 mg/dL Low 0.70-1.30 [facility] Comment on above: Performed By: #### L [id number] ####[facility] ([facility])[address] [place] [address] GLOMERULAR FILTRATION RATE ML/MIN/1.73 SQ M.PREDICTED 103.5 mL/min/1.73m*2 Normal >60.0 [facility] Comment on above: Result Comment: [facility]???s estimated glomerular filtration rate (eGFR) will no [...] of individuals. Performed By: #### L [id number] ####[facility] ([facility])[address] [place] [address] Glucose [Mass/Vol] 98 mg/dL Normal 70-100 [facility] Comment on above: Performed By: #### L [id number] ####[facility] ([facility])[address] [place] [address] Potassium [Moles/Vol] 3.7 mmol/L Normal 3.5-5.1 [facility] Comment on above: Performed By: #### L [id number] ####[facility] ([facility])[address] [place] [address] Sodium [Moles/Vol] 138 mmol/L Normal 136-145 [facility] Comment on above: Performed By: #### L [id number] ####[facility] ([facility])[address] [place] [address] Urea nitrogen [Mass/Vol] 12 mg/dL Normal 7-25 [facility] Comment on above: Performed By: #### L [id number] ####[facility] [place] [address] UREA NITROGEN/CREATININ E (MASS RATIO) IN SER/PLAS 19.4 Normal [facility] Comment on above: Performed By: #### L [id number] ####[facility] [place] [address] CBCon 05-01-2023 Erythrocyte distribution width (RBC) [Ratio] 14.5 % Normal 11.5-15.0 [facility] Comment on above: Performed By: #### L [id number] ####[facility] ([facility])[address], [place] [address] ERYTHROCYTE MEAN CORPUSCULAR HEMOGLOBIN CONCENTRATION (G/DL) BY AUTOMATED 33.2 g/dL Normal 32.0-35.0 [facility] Comment on above: Performed By: #### L [id number] ####[facility] ([facility])[address], [place] [address] Hematocrit (Bld) [Volume fraction] 27.4 % Low 39.0-55.0 [facility] Comment on above: Performed By: #### L [id number] ####[facility], [place] [address] Hemoglobin (Bld) [Mass/Vol] 9.1 g/dL Low 13.0-17.0 [facility] Comment on above: Performed By: #### L [id number] ####[facility], [place] [address] MCH (RBC) [Entitic mass] 30.7 pg Normal 27.0-33.0 [facility] Comment on above: Performed By: #### L [id number] ####[facility] [place] [address] MCV (RBC) [Entitic vol] 92.6 fL Normal 82.0-98.0 [facility] Comment on above: Performed By: #### L [id number] ####[facility] ([facility])[address] [place] [address] PLATELETS (10*3/UL) IN BLOOD AUTOMATED COUNT 276 10*3/uL Normal 150-400 [facility] Comment on above: Performed By: #### L [id number] ####[facility] ([facility])[address] [place] [address] RBC (Bld) [#/Vol] 2.96 10*6/uL Low 4.20-5.70 [facility] Comment on above: Performed By: #### L [id number] ####[facility] ([facility])[address] [place] [address] WBC (Bld) [#/Vol] 6.87 10*3/uL Normal 4.00-10.60 [facility] Comment on above: Performed By: #### L [id number] ####[facility] ([facility])[address] [place] [address] DSon 05-01-2023 DS Normal [facility] MAGNESIUMon 05-01-2023 Magnesium [Mass/Vol] 1.7 mg/dL Low 1.9-2.7 [facility] Comment on above: Performed By: #### L [id number] ####[facility] ([facility])[address] [place] [address] NURSNOTEon 05-01-2023 NURSNOTE Normal [facility] NURSNOTE Normal [facility] PHOSPHORUSon 05-01-2023 Magnesium [Mass/Vol] 3.8 mg/dL Normal 2.5-5.0 [facility] Comment on above: Performed By: #### L [id number] ####[facility] ([facility])[address] [place] [address] POCT GLUCOSE METER UNSOLICIT ED RESULTSon 05-01-2023 Glucose [Mass/Vol] 116 mg/dL High 70-105 [facility] Comment on above: Order Comment: Waive d Testing in the ED is performed under the ED CLIA certificate #[id number]. Result Comment: [email or web address] Performed By: #### L [id number] ####[facility] ([facility])[address] [place] [address] Glucose [Mass/Vol] 115 mg/dL High 70-105 [facility] Comment on above: Order Comment: Waive d Testing in the ED is performed under the ED CLIA certificate #[id number]. Result Comment: [email or web address] Performed By: #### L [id number] ####[facility] [place] [address] 30on 04-30-2023 30 Normal [facility] 30 Normal [facility] 30 Normal [facility] BASIC METABOLIC PANELon 04-17 Anion gap [Moles/Vol] 12 mmol/L Normal 7-20 [facility] Comment on above: Performed By: #### L [id number] ####[facility] ([facility])[address] [place] [address] Calcium [Mass/Vol] 8.3 mg/dL Low 8.6-10.3 [facility] Comment on above: Performed By: #### L [id number] ####[facility] ([facility])[address] [place] [address] Chloride [Moles/Vol] 109 mmol/L High 98-107 [facility] Comment on above: Performed By: #### L [id number] ####[facility] ([facility])[address] [place] [address] CO2 [Moles/Vol] 21 mmol/L Normal 21-31 [facility] Comment on above: Performed By: #### L [id number] ####[facility] ([facility])[address] [place] [address] Creatinine [Mass/Vol] 0.70 mg/dL Normal 0.70-1.30 [facility] Comment on above: Performed By: #### L [id number] ####[facility] ([facility])[address] [place] [address] GLOMERULAR FILTRATION RATE ML/MIN/1.73 SQ M.PREDICTED 99.7 mL/min/1.73m*2 Normal >60.0 [facility] Comment on above: Result Comment: [facility]???s estimated glomerular filtration rate (eGFR) will no [...] of individuals. Performed By: #### L [id number] ####[facility] ([facility])[address] [place] [address] Glucose [Mass/Vol] 104 mg/dL High 70-100 [facility] Comment on above: Performed By: #### L [id number] ####[facility] ([facility])[address] [place] [address] Potassium [Moles/Vol] 3.7 mmol/L Normal 3.5-5.1 [facility] Comment on above: Performed By: #### L [id number] ####[facility] ([facility])[address] [place] [address] Sodium [Moles/Vol] 138 mmol/L Normal 136-145 [facility] Comment on above: Performed By: #### L [id number] ####[facility] ([facility])[address] [address] Urea nitrogen [Mass/Vol] 15 mg/dL Normal 7-25 [facility] Comment on above: Performed By: #### L [id number] ####[facility] ([facility])[address] [place] [address] UREA NITROGEN/CREATININ E (MASS RATIO) IN SER/PLAS 21.4 Normal [facility] Comment on above: Performed By: #### L [id number] ####[facility] ([facility])[address] [place] [address] CBCon 04-30-2023 Erythrocyte distribution width (RBC) [Ratio] 13.8 % Normal 11.5-15.0 [facility] Comment on above: Performed By: #### L [id number] ####[facility] ([facility])[address] [place] [address] ERYTHROCYTE MEAN CORPUSCULAR HEMOGLOBIN CONCENTRATION (G/DL) BY AUTOMATED 32.6 g/dL Normal 32.0-35.0 [facility] Comment on above: Performed By: #### L [id number] ####[facility] ([facility])[address] [place] [address] Hematocrit (Bld) [Volume fraction] 27.3 % Low 39.0-55.0 [facility] Comment on above: Performed By: #### L [id number] ####[facility] ([facility])[address] [place] [address] Hemoglobin (Bld) [Mass/Vol] 8.9 g/dL Low 13.0-17.0 [facility] Comment on above: Performed By: #### L [id number] ####[facility] ([facility])[address] [place] [address] MCH (RBC) [Entitic mass] 30.4 pg Normal 27.0-33.0 [facility] Comment on above: Performed By: #### L [id number] ####[facility] [place] [address] MCV (RBC) [Entitic vol] 93.2 fL Normal 82.0-98.0 [facility] Comment on above: Performed By: #### L [id number] ####[facility] [place] [address] PLATELETS (10*3/UL) IN BLOOD AUTOMATED COUNT 219 10*3/uL Normal 150-400 [facility] Comment on above: Performed By: #### L [id number] ####[facility] ([facility])[address] [place] [address] RBC (Bld) [#/Vol] 2.93 10*6/uL Low 4.20-5.70 [facility] Comment on above: Performed By: #### L [id number] ####[facility] ([facility])[address] [place] [address] WBC (Bld) [#/Vol] 6.80 10*3/uL Normal 4.00-10.60 [facility] Comment on above: Performed By: #### L [id number] ####[facility] ([facility])[address] [place] [address] MAGNESIUMon 04-30-2023 Magnesium [Mass/Vol] 1.7 mg/dL Low 1.9-2.7 [facility] Comment on above: Performed By: #### L [id number] ####[facility] ([facility])[address] [place] [address] PHOSPHORUSon 04-30-2023 Magnesium [Mass/Vol] 4.0 mg/dL Normal 2.5-5.0 [facility] Comment on above: Performed By: #### L [id number] ####[facility] ([facility])[address] [place] [address] POCT GLUCOSE METER UNSOLICIT ED RESULTSon 04-30-2023 Glucose [Mass/Vol] 123 mg/dL High 70-105 [facility] Comment on above: Order Comment: Waive d Testing in the ED is performed under the ED CLIA certificate #[id number]. Result Comment: [email or web address] [email or web address] Performed By: #### L [id number] ####[facility] ([facility])[address] [place] [address] Glucose [Mass/Vol] 138 mg/dL High 70-105 [facility] Comment on above: Order Comment: Waive d Testing in the ED is performed under the ED CLIA certificate #[id number]. Result Comment: [email or web address] Performed By: #### L [id number] ####[facility] ([facility])[address] [place] [address] 30on 04-29-2023 30 Normal [facility] 30 Normal [facility] 30 Normal [facility] BASIC METABOLIC PANELon 04-17 Anion gap [Moles/Vol] 11 mmol/L Normal 7-20 [facility] Comment on above: Performed By: #### L [id number] ####[facility] ([facility])[address] [place] [address] Calcium [Mass/Vol] 8.4 mg/dL Low 8.6-10.3 [facility] Comment on above: Performed By: #### L [id number] ####[facility] ([facility])[address] [place] [address] Chloride [Moles/Vol] 109 mmol/L High 98-107 [facility] Comment on above: Performed By: #### L [id number] ####[facility] ([facility])[address] [place] [address] CO2 [Moles/Vol] 20 mmol/L Low 21-31 [facility] Comment on above: Performed By: #### L [id number] ####[facility] ([facility])[address] [place] [address] Creatinine [Mass/Vol] 0.68 mg/dL Low 0.70-1.30 [facility] Comment on above: Performed By: #### L [id number] ####[facility] ([facility])[address] [place] [address] GLOMERULAR FILTRATION RATE ML/MIN/1.73 SQ M.PREDICTED 100.6 mL/min/1.73m*2 Normal >60.0 [facility] Comment on above: Result Comment: [facility]???s estimated glomerular filtration rate (eGFR) will no [...] of individuals. Performed By: #### L [id number] ####[facility] ([facility])[address] [place] [address] Glucose [Mass/Vol] 100 mg/dL Normal 70-100 [facility] Comment on above: Performed By: #### L [id number] ####[facility] ([facility])[address] [place] [address] Potassium [Moles/Vol] 3.8 mmol/L Normal 3.5-5.1 [facility] Comment on above: Performed By: #### L [id number] ####[facility] ([facility])[address] [address] Sodium [Moles/Vol] 136 mmol/L Normal 136-145 [facility] Comment on above: Performed By: #### L [id number] ####[facility] ([facility])[address] [place] [address] Urea nitrogen [Mass/Vol] 18 mg/dL Normal 7-25 [facility] Comment on above: Performed By: #### L [id number] ####[facility] ([facility])[address] [address] UREA NITROGEN/CREATININ E (MASS RATIO) IN SER/PLAS 26.5 Normal [facility] Comment on above: Performed By: #### L [id number] ####[facility] ([facility])[address] [place] [address] CBCon 04-29-2023 Erythrocyte distribution width (RBC) [Ratio] 13.6 % Normal 11.5-15.0 [facility] Comment on above: Performed By: #### L [id number] ####[facility] ([facility])[address] [place] [address] ERYTHROCYTE MEAN CORPUSCULAR HEMOGLOBIN CONCENTRATION (G/DL) BY AUTOMATED 33.7 g/dL Normal 32.0-35.0 [facility] Comment on above: Performed By: #### L [id number] ####[facility] ([facility])[address] [place] [address] Hematocrit (Bld) [Volume fraction] 27.0 % Low 39.0-55.0 [facility] Comment on above: Performed By: #### L [id number] ####[facility] ([facility])[address] [place] [address] Hemoglobin (Bld) [Mass/Vol] 9.1 g/dL Low 13.0-17.0 [facility] Comment on above: Performed By: #### L [id number] ####[facility] ([facility])[address] [place] [address] MCH (RBC) [Entitic mass] 30.4 pg Normal 27.0-33.0 [facility] Comment on above: Performed By: #### L [id number] ####[facility] ([facility])[address] [place] [address] MCV (RBC) [Entitic vol] 90.3 fL Normal 82.0-98.0 [facility] Comment on above: Performed By: #### L [id number] ####[facility] ([facility])[address] [place] [address] PLATELETS (10*3/UL) IN BLOOD AUTOMATED COUNT 188 10*3/uL Normal 150-400 [facility] Comment on above: Performed By: #### L [id number] ####[facility] ([facility])[address] [place] [address] RBC (Bld) [#/Vol] 2.99 10*6/uL Low 4.20-5.70 [facility] Comment on above: Performed By: #### L [id number] ####[facility] ([facility])[address] [place] [address] WBC (Bld) [#/Vol] 7.24 10*3/uL Normal 4.00-10.60 [facility] Comment on above: Performed By: #### L [id number] ####[facility] ([facility])[address] [place] [address] CONSULTon 04-29-2023 CONSULT Normal [facility] MAGNESIUMon 04-29-2023 Magnesium [Mass/Vol] 1.7 mg/dL Low 1.9-2.7 [facility] Comment on above: Performed By: #### L [id number] ####[facility] ([facility])[address] [place] [address] PHOSPHORUSon 04-29-2023 Magnesium [Mass/Vol] 3.9 mg/dL Normal 2.5-5.0 [facility] Comment on above: Performed By: #### L [id number] ####[facility] ([facility])[address] [place] [address] POCT GLUCOSE METER UNSOLICIT ED RESULTSon 04-29-2023 Glucose [Mass/Vol] 111 mg/dL High 70-105 [facility] Comment on above: Order Comment: Waive d Testing in the ED is performed under the ED CLIA certificate #[id number]. Result Comment: [email or web address] Performed By: #### L [id number] ####[facility] ([facility])[address] [place] [address] Glucose [Mass/Vol] 133 mg/dL High 70-105 [facility] Comment on above: Order Comment: Waive d Testing in the ED is performed under the ED CLIA certificate #[id number]. Result Comment: mitra shea Performed By: #### L [id number] ####[facility] ([facility])[address] [place] [address] Glucose [Mass/Vol] 128 mg/dL High 70-105 [facility] Comment on above: Order Comment: Waive d Testing in the ED is performed under the ED CLIA certificate #[id number]. Result Comment: mitra shea Performed By: #### L [id number] ####[facility] [place] [address] 30on 04-28-2023 30 Normal [facility] BASIC METABOLIC PANELon 04-17 Anion gap [Moles/Vol] 10 mmol/L Normal 7-20 [facility] Comment on above: Performed By: #### L [id number] ####[facility] ([facility])[address] [place] [address] Calcium [Mass/Vol] 8.1 mg/dL Low 8.6-10.3 [facility] Comment on above: Performed By: #### L [id number] ####[facility] ([facility])[address] [place] [address] Chloride [Moles/Vol] 109 mmol/L High 98-107 [facility] Comment on above: Performed By: #### L [id number] ####[facility] ([facility])[address] [place] [address] CO2 [Moles/Vol] 22 mmol/L Normal 21-31 [facility] Comment on above: Performed By: #### L [id number] ####[facility] ([facility])[address] [place] [address] Creatinine [Mass/Vol] 0.62 mg/dL Low 0.70-1.30 [facility] Comment on above: Performed By: #### L [id number] ####[facility] ([facility])[address] [place] [address] GLOMERULAR FILTRATION RATE ML/MIN/1.73 SQ M.PREDICTED 103.5 mL/min/1.73m*2 Normal >60.0 [facility] Comment on above: Result Comment: [facility]???s estimated glomerular filtration rate (eGFR) will no [...] of individuals. Performed By: #### L [id number] ####[facility] ([facility])[address] [place] [address] Glucose [Mass/Vol] 102 mg/dL High 70-100 [facility] Comment on above: Performed By: #### L [id number] ####[facility] ([facility])[address] [address] Potassium [Moles/Vol] 3.4 mmol/L Low 3.5-5.1 [facility] Comment on above: Performed By: #### L [id number] ####[facility] ([facility])[address] [place] [address] Sodium [Moles/Vol] 138 mmol/L Normal 136-145 [facility] Comment on above: Performed By: #### L [id number] ####[facility] ([facility])[address] [address] Urea nitrogen [Mass/Vol] 22 mg/dL Normal 7-25 [facility] Comment on above: Performed By: #### L [id number] ####[facility] ([facility])[address] [place] [address] UREA NITROGEN/CREATININ E (MASS RATIO) IN SER/PLAS 35.5 Normal [facility] Comment on above: Performed By: #### L [id number] ####[facility] ([facility])[address] [address] CBC WITH AUTO DIFFERENTIALon 04-28-2023 Basophils (Bld) [#/Vol] 0.02 10*3/uL Normal 0.00-0.20 [facility] Comment on above: Performed By: #### L [id number] ####[facility] ([facility])[address] [place] [address] Basophils/100 WBC (Bld) 0.2 % Normal 0.0-1.0 [facility] Comment on above: Performed By: #### L [id number] ####[facility] ([facility])[address] [place] [address] Eosinophils (Bld) [#/Vol] 0.09 10*3/uL Normal 0.00-0.50 [facility] Comment on above: Performed By: #### L [id number] ####[facility] ([facility])[address] [place] [address] Eosinophils/100 WBC (Bld) 1.1 % Normal 0.0-6.0 [facility] Comment on above: Performed By: #### L [id number] ####[facility] ([facility])[address] [place] [address] Erythrocyte distribution width (RBC) [Ratio] 13.6 % Normal 11.5-15.0 [facility] Comment on above: Performed By: #### L [id number] ####[facility] ([facility])[address] [place] [address] ERYTHROCYTE MEAN CORPUSCULAR HEMOGLOBIN CONCENTRATION (G/DL) BY AUTOMATED 33.1 g/dL Normal 32.0-35.0 [facility] Comment on above: Performed By: #### L [id number] ####[facility] ([facility])[address] [place] [address] Hematocrit (Bld) [Volume fraction] 32.3 % Low 39.0-55.0 [facility] Comment on above: Performed By: #### L [id number] ####[facility] [place] [address] Hemoglobin (Bld) [Mass/Vol] 10.7 g/dL Low 13.0-17.0 [facility] Comment on above: Performed By: #### L [id number] ####[facility] (BEAKER)[address] [place] [address] Immature granulocytes (Bld) [#/Vol] 0.06 10*3/uL Normal 0.00-0.20 [facility] Comment on above: Performed By: #### L [id number] ####[facility] (BEAKER)[address] [place] [address] Immature granulocytes/100 WBC (Bld) 0.7 % Normal 0.0-1.0 [facility] Comment on above: Performed By: #### L [id number] ####[facility] (BE[facility]ER)[address] [place] [address] Lymphocytes (Bld) [#/Vol] 1.82 10*3/uL Normal 1.20-4.00 [facility] Comment on above: Performed By: #### L [id number] ####[facility] (BE[facility]ER)[address] [place] [address] Lymphocytes/100 WBC (Bld) 22.2 % Normal 20.0-45.0 [facility] Comment on above: Performed By: #### L [id number] ####[facility] (BE[facility]ER)[address] [place] [address] MCH (RBC) [Entitic mass] 30.3 pg Normal 27.0-33.0 [facility] Comment on above: Performed By: #### L [id number] ####[facility] (BE[facility]ER)[address] [place] [address] MCV (RBC) [Entitic vol] 91.5 fL Normal 82.0-98.0 [facility] Comment on above: Performed By: #### L [id number] ####[facility] (BE[facility]ER)[address] [place] [address] Monocytes (Bld) [#/Vol] 0.67 10*3/uL Normal 0.10-1.00 [facility] Comment on above: Performed By: #### L [id number] ####[facility] (BE[facility]ER)[address] [place] [address] Monocytes/100 WBC (Bld) 8.2 % Normal 5.0-12.0 [facility] Comment on above: Performed By: #### L [id number] ####[facility] (BEAKER)[address] [place] [address] Neutrophils (Bld) [#/Vol] 5.55 10*3/uL Normal 1.60-7.60 [facility] Comment on above: Performed By: #### L [id number] ####[facility] (BEAKER)[address] [address] Neutrophils/100 WBC (Bld) 67.6 % Normal 40.0-72.0 [facility] Comment on above: Performed By: #### L [id number] ####[facility] [address] NRBC (PER 100 WBCS) BY AUTOMATED COUNT 0.0 % Normal 0 [facility] Comment on above: Performed By: #### L [id number] ####[facility] [address] PLATELETS (10*3/UL) IN BLOOD AUTOMATED COUNT 160 10*3/uL Normal 150-400 [facility] Comment on above: Performed By: #### L [id number] ####[facility] ([facility])[address] [address] RBC (Bld) [#/Vol] 3.53 10*6/uL Low 4.20-5.70 [facility] Comment on above: Performed By: #### L [id number] ####[facility] (BEAKER)[address] [address] WBC (Bld) [#/Vol] 8.21 10*3/uL Normal 4.00-10.60 [facility] Comment on above: Performed By: #### L [id number] ####[facility] (BEAKER)[address], [place] [address] MAGNESIUMon 04-28-2023 Magnesium [Mass/Vol] 1.7 mg/dL Low 1.9-2.7 [facility] Comment on above: Performed By: #### L [id number] ####[facility] (BE[facility]ER)[address], [place] [address] PHOSPHORUSon 04-28-2023 Magnesium [Mass/Vol] 3.9 mg/dL Normal 2.5-5.0 [facility] Comment on above: Performed By: #### L [id number] ####[facility] ([facility])[address] [place] [address] POCT GLUCOSE METER UNSOLICIT ED RESULTSon 04-28-2023 Glucose [Mass/Vol] 111 mg/dL High 70-105 [facility] Comment on above: Order Comment: Waive d Testing in the ED is performed under the ED CLIA certificate #[id number]. Result Comment: afin [email or web address] Performed By: #### L [id number] ####[facility] ([facility])[address] [place] [address] Glucose [Mass/Vol] 86 mg/dL Normal 70-105 [facility] Comment on above: Order Comment: Waive d Testing in the ED is performed under the ED CLIA certificate #[id number]. Result Comment: [email or web address] Performed By: #### L [id number] ####[facility] ([facility])[address] [place] [address] Glucose [Mass/Vol] 159 mg/dL High 70-105 [facility] Comment on above: Order Comment: Waive d Testing in the ED is performed under the ED CLIA certificate #[id number]. Result Comment: [email or web address] Performed By: #### L [id number] ####[facility] ([facility])[address] [place] [address] Glucose [Mass/Vol] 109 mg/dL High 70-105 [facility] Comment on above: Order Comment: Waive d Testing in the ED is performed under the ED CLIA certificate #[id number]. Result Comment: afin [email or web address] Performed By: #### L [id number] ####[facility] ([facility])[address] [place] [address] BASIC METABOLIC PANELon 04-17 Anion gap [Moles/Vol] 11 mmol/L Normal 7-20 [facility] Comment on above: Performed By: #### L [id number] ####[facility] (BEAKER)[address] [place] [address] Calcium [Mass/Vol] 8.2 mg/dL Low 8.6-10.3 [facility] Comment on above: Performed By: #### L [id number] ####[facility] (BEAKER)[address] [place] [address] Chloride [Moles/Vol] 112 mmol/L High 98-107 [facility] Comment on above: Performed By: #### L [id number] ####[facility] (BEAKER)[address] [place] [address] CO2 [Moles/Vol] 23 mmol/L Normal 21-31 [facility] Comment on above: Performed By: #### L [id number] ####[facility] (BEAKER)[address] [place] [address] Creatinine [Mass/Vol] 0.64 mg/dL Low 0.70-1.30 [facility] Comment on above: Performed By: #### L [id number] ####[facility] ([facility] [place] [address] GLOMERULAR FILTRATION RATE ML/MIN/1.73 SQ M.PREDICTED 102.5 mL/min/1.73m*2 Normal >60.0 [facility] Comment on above: Result Comment: [facility]???s estimated glomerular filtration rate (eGFR) will no [...] of individuals. Performed By: #### L [id number] ####[facility] (BEAKER)[address] [place] [address] Glucose [Mass/Vol] 116 mg/dL High 70-100 [facility] Comment on above: Performed By: #### L [id number] ####[facility] ([facility])[address] [place] [address] Potassium [Moles/Vol] 3.9 mmol/L Normal 3.5-5.1 [facility] Comment on above: Performed By: #### L [id number] ####[facility] ([facility])[address] [place] [address] Sodium [Moles/Vol] 142 mmol/L Normal 136-145 [facility] Comment on above: Performed By: #### L [id number] ####[facility] ([facility])[address] [place] [address] Urea nitrogen [Mass/Vol] 22 mg/dL Normal 7-25 [facility] Comment on above: Performed By: #### L [id number] ####[facility] ([facility])[address] [place] [address] UREA NITROGEN/CREATININ E (MASS RATIO) IN SER/PLAS 34.4 Normal [facility] Comment on above: Performed By: #### L [id number] ####[facility] ([facility])[address] [place] [address] CBC WITH AUTO DIFFERENTIALon 04-27-2023 Basophils (Bld) [#/Vol] 0.02 10*3/uL Normal 0.00-0.20 [facility] Comment on above: Performed By: #### L [id number] ####[facility] ([facility])[address] [place] [address] Basophils/100 WBC (Bld) 0.2 % Normal 0.0-1.0 [facility] Comment on above: Performed By: #### L [id number] ####[facility] ([facility])[address] [place] [address] Eosinophils (Bld) [#/Vol] 0.05 10*3/uL Normal 0.00-0.50 [facility] Comment on above: Performed By: #### L [id number] ####[facility] (BEAKER)[address] [place] [address] Eosinophils/100 WBC (Bld) 0.5 % Normal 0.0-6.0 [facility] Comment on above: Performed By: #### L [id number] ####[facility] (BEAKER)[address] [place] [address] Erythrocyte distribution width (RBC) [Ratio] 13.6 % Normal 11.5-15.0 [facility] Comment on above: Performed By: #### L [id number] ####[facility] (BEAKER)[address] [place] [address] ERYTHROCYTE MEAN CORPUSCULAR HEMOGLOBIN CONCENTRATION (G/DL) BY AUTOMATED 33.7 g/dL Normal 32.0-35.0 [facility] Comment on above: Performed By: #### L [id number] ####[facility] (BEAKER)[address] [place] [address] Hematocrit (Bld) [Volume fraction] 26.4 % Low 39.0-55.0 [facility] Comment on above: Performed By: #### L [id number] ####[facility] (BEAKER)[address] [place] [address] Hemoglobin (Bld) [Mass/Vol] 8.9 g/dL Low 13.0-17.0 [facility] Comment on above: Performed By: #### L [id number] ####[facility] (BE[facility]ER)[address] [place] [address] Immature granulocytes (Bld) [#/Vol] 0.07 10*3/uL Normal 0.00-0.20 [facility] Comment on above: Performed By: #### L [id number] ####[facility] (BE[facility]ER)[address] [place] [address] Immature granulocytes/100 WBC (Bld) 0.8 % Normal 0.0-1.0 [facility] Comment on above: Performed By: #### L [id number] ####[facility] ([facility]ER)[address] [place] [address] Lymphocytes (Bld) [#/Vol] 1.24 10*3/uL Normal 1.20-4.00 [facility] Comment on above: Performed By: #### L [id number] ####[facility] (BE[facility]ER)[address] [place] [address] Lymphocytes/100 WBC (Bld) 13.3 % Low 20.0-45.0 [facility] Comment on above: Performed By: #### L [id number] ####[facility] (BE[facility]ER)[address] [place] [address] MCH (RBC) [Entitic mass] 30.5 pg Normal 27.0-33.0 [facility] Comment on above: Performed By: #### L [id number] ####[facility] (BEAKER)[address] [place] [address] MCV (RBC) [Entitic vol] 90.4 fL Normal 82.0-98.0 [facility] Comment on above: Performed By: #### L [id number] ####[facility] (BEAKER)[address] [place] [address] Monocytes (Bld) [#/Vol] 0.72 10*3/uL Normal 0.10-1.00 [facility] Comment on above: Performed By: #### L [id number] ####[facility] (BEAKER)[address] [place] [address] Monocytes/100 WBC (Bld) 7.7 % Normal 5.0-12.0 [facility] Comment on above: Performed By: #### L [id number] ####[facility] (BE[facility]ER)[address] [place] [address] Neutrophils (Bld) [#/Vol] 7.22 10*3/uL Normal 1.60-7.60 [facility] Comment on above: Performed By: #### L [id number] ####[facility] (BEAKER)[address] [place] [address] Neutrophils/100 WBC (Bld) 77.5 % High 40.0-72.0 [facility] Comment on above: Performed By: #### L [id number] ####[facility] ([facility])[address] [address] NRBC (PER 100 WBCS) BY AUTOMATED COUNT 0.0 % Normal 0 [facility] Comment on above: Performed By: #### L [id number] ####[facility] ([facility])[address] [address] PLATELETS (10*3/UL) IN BLOOD AUTOMATED COUNT 100 10*3/uL Low 150-400 [facility] Comment on above: Performed By: #### L [id number] ####[facility] ([facility])[address] [place] [address] RBC (Bld) [#/Vol] 2.92 10*6/uL Low 4.20-5.70 [facility] Comment on above: Performed By: #### L [id number] ####[facility] ([facility])[address], [place] [address] WBC (Bld) [#/Vol] 9.32 10*3/uL Normal 4.00-10.60 [facility] Comment on above: Performed By: #### L [id number] ####[facility] ([facility])[address] [place] [address] MAGNESIUMon 04-27-2023 Magnesium [Mass/Vol] 1.9 mg/dL Normal 1.9-2.7 [facility] Comment on above: Performed By: #### L [id number] ####[facility] ([facility])[address] [place] [address] PHOSPHORUSon 04-27-2023 Magnesium [Mass/Vol] 3.5 mg/dL Normal 2.5-5.0 [facility] Comment on above: Performed By: #### L [id number] ####[facility] ([facility])[address] [place] [address] POCT GLUCOSE METER UNSOLICIT ED RESULTSon 04-27-2023 Glucose [Mass/Vol] 100 mg/dL Normal 70-105 [facility] Comment on above: Order Comment: Waive d Testing in the ED is performed under the ED CLIA certificate #[id number]. Result Comment: [email or web address] [email or web address] Performed By: #### L [id number] ####[facility] ([facility])[address] [facility] [place] [address] Glucose [Mass/Vol] 165 mg/dL High 70-105 [facility] Comment on above: Order Comment: Waive d Testing in the ED is performed under the ED CLIA certificate #[id number]. Result Comment: [email or web address] Performed By: #### L [id number] ####[facility] ([facility])[address] [facility] [place] [address] Glucose [Mass/Vol] 157 mg/dL High 70-105 [facility] Comment on above: Order Comment: Waive d Testing in the ED is performed under the ED CLIA certificate #[id number]. Result Comment: [email or web address] Performed By: #### L [id number] ####[facility] ([employer])[address] [place] [address] Glucose [Mass/Vol] 112 mg/dL High 70-105 [facility] Comment on above: Order Comment: Waive d Testing in the ED is performed under the ED CLIA certificate #[id number]. Result Comment: afin [email or web address] Performed By: #### L [id number] ####[facility] ([facility])[address] [employer] [place] [address] PROTIME-INRon 04-27-2023 INR IN PPP BY COAGULATION ASSAY 1.21 High 0.90-1.10 [facility] Comment on above: Result Comment: ACCC P [...] CHEST 1995;[id number]. Performed By: #### L [id number] ####[facility] ([employer])[address] [place] [address] PROTHROMBIN TIME (PT) IN PPP BY COAGULATION ASSAY 15.3 Seconds High 12.3-14.8 [facility] Comment on above: Performed By: #### L [id number] ####[facility] ([employer])[address] [place] [address] 30on 04-26-2023 30 Normal [facility] 30 Normal [facility] 30 Normal [facility] 30 Normal [facility] BASIC METABOLIC PANELon 11- Anion gap [Moles/Vol] 10 mmol/L Normal 7-20 [facility] Comment on above: Performed By: #### L [id number] ####[facility] ([employer])[address] [place] [address] Calcium [Mass/Vol] 8.5 mg/dL Low 8.6-10.3 [facility] Comment on above: Performed By: #### L [id number] ####[facility] ([employer])[address] [place] [address] Chloride [Moles/Vol] 109 mmol/L High 98-107 [facility] Comment on above: Performed By: #### L [id number] ####[facility] ([employer])[address] [address] CO2 [Moles/Vol] 25 mmol/L Normal 21-31 [facility] Comment on above: Performed By: #### L [id number] ####[facility] ([facility])[address] [place] [address] Creatinine [Mass/Vol] 0.62 mg/dL Low 0.70-1.30 [facility] Comment on above: Performed By: #### L [id number] ####[facility] ([facility])[address] [place] [address] GLOMERULAR FILTRATION RATE ML/MIN/1.73 SQ M.PREDICTED 103.5 mL/min/1.73m*2 Normal >60.0 [facility] Comment on above: Result Comment: [facility]???s estimated glomerular filtration rate (eGFR) will no [...] of individuals. Performed By: #### L [id number] ####[facility] ([facility])[address] [place] [address] Glucose [Mass/Vol] 136 mg/dL High 70-100 [facility] Comment on above: Performed By: #### L [id number] ####[facility] ([facility])[address] [place] [address] Potassium [Moles/Vol] 3.6 mmol/L Normal 3.5-5.1 [facility] Comment on above: Performed By: #### L [id number] ####[facility] ([facility])[address] [place] [address] Sodium [Moles/Vol] 140 mmol/L Normal 136-145 [facility] Comment on above: Performed By: #### L [id number] ####[facility] (BEAKER)[address] [place] [address] Urea nitrogen [Mass/Vol] 18 mg/dL Normal 7-25 [facility] Comment on above: Performed By: #### L [id number] ####[facility] ([facility]ER)[address] [place] [address] UREA NITROGEN/CREATININ E (MASS RATIO) IN SER/PLAS 29.0 Normal [facility] Comment on above: Performed By: #### L [id number] ####[facility] ([facility]ER)[address] [place] [address] Anion gap [Moles/Vol] 9 mmol/L Normal 7-20 [facility] Comment on above: Performed By: #### L [id number] ####[facility] ([facility]ER)[address] [place] [address] Calcium [Mass/Vol] 7.8 mg/dL Low 8.6-10.3 [facility] Comment on above: Performed By: #### L [id number] ####[facility] ([facility]ER)[address] [place] [address] Chloride [Moles/Vol] 112 mmol/L High 98-107 [facility] Comment on above: Performed By: #### L [id number] ####[facility] ([facility]ER)[address] [place] [address] CO2 [Moles/Vol] 23 mmol/L Normal 21-31 [facility] Comment on above: Performed By: #### L [id number] ####[facility] ([facility]ER)[address] [place] [address] Creatinine [Mass/Vol] 0.61 mg/dL Low 0.70-1.30 [facility] Comment on above: Performed By: #### L [id number] ####[facility] ([facility]ER)[address] [place] [address] GLOMERULAR FILTRATION RATE ML/MIN/1.73 SQ M.PREDICTED 104.0 mL/min/1.73m*2 Normal >60.0 [facility] Comment on above: Result Comment: [facility]???s estimated glomerular filtration rate (eGFR) will no [...] of individuals. Performed By: #### L [id number] ####[facility] ([facility])[address] [place] [address] Glucose [Mass/Vol] 112 mg/dL High 70-100 [facility] Comment on above: Performed By: #### L [id number] ####[facility] ([facility])[address] [place] [address] Potassium [Moles/Vol] 3.4 mmol/L Low 3.5-5.1 [facility] Comment on above: Performed By: #### L [id number] ####[facility] ([facility])[address] [place] [address] Sodium [Moles/Vol] 141 mmol/L Normal 136-145 [facility] Comment on above: Performed By: #### L [id number] ####[facility] [place] [address] Urea nitrogen [Mass/Vol] 14 mg/dL Normal 7-25 [facility] Comment on above: Performed By: #### L [id number] ####[facility] [place] [address] UREA NITROGEN/CREATININ E (MASS RATIO) IN SER/PLAS 23.0 Normal [facility] Comment on above: Performed By: #### L [id number] ####[facility] [place] [address] CBCon 04-26-2023 Erythrocyte distribution width (RBC) [Ratio] 13.9 % Normal 11.5-15.0 [facility] Comment on above: Performed By: #### L [id number] ####[facility] ([facility] [place] [address] ERYTHROCYTE MEAN CORPUSCULAR HEMOGLOBIN CONCENTRATION (G/DL) BY AUTOMATED 33.7 g/dL Normal 32.0-35.0 [facility] Comment on above: Performed By: #### L [id number] ####[facility] ([facility])[address] [address] Hematocrit (Bld) [Volume fraction] 24.3 % Low 39.0-55.0 [facility] Comment on above: Performed By: #### L [id number] ####[facility] ([facility])[address] [place] [address] Hemoglobin (Bld) [Mass/Vol] 8.2 g/dL Low 13.0-17.0 [facility] Comment on above: Performed By: #### L [id number] ####[facility] ([facility])[address] [place] [address] IMMATURE PLATELET FRACTION % 4.3 % Normal 0.8-6.3 [facility] Comment on above: Performed By: #### L [id number] ####[facility] ([facility])[address] [place] [address] MCH (RBC) [Entitic mass] 30.4 pg Normal 27.0-33.0 [facility] Comment on above: Performed By: #### L [id number] ####[facility] [place] [address] MCV (RBC) [Entitic vol] 90.0 fL Normal 82.0-98.0 [facility] Comment on above: Performed By: #### L [id number] ####[facility] ([facility])[address] [place] [address] PLATELETS (10*3/UL) IN BLOOD AUTOMATED COUNT 71 10*3/uL Low 150-400 [facility] Comment on above: Performed By: #### L [id number] ####[facility] [place] [address] RBC (Bld) [#/Vol] 2.70 10*6/uL Low 4.20-5.70 [facility] Comment on above: Performed By: #### L [id number] ####[facility] ([facility])[address] [place] [address] WBC (Bld) [#/Vol] 7.74 10*3/uL Normal 4.00-10.60 [facility] Comment on above: Performed By: #### L [id number] ####[facility] ([facility])[address] [place] [address] CO-OXIMETRYon 04-26-2023 CARBOXYHEMOGLOBIN/ HEMOGLOBIN TOTAL % IN BLOOD 1.4 % Normal [facility] Comment on above: Performed By: #### L [id number] ####[facility] RESPIRATORY [id number] [place] [address] [place] Hemoglobin (Bld) [Mass/Vol] 8.5 g/dL Normal [facility] Comment on above: Performed By: #### L [id number] ####[facility] RESPIRATORY [id number] [place] [address] [place] METHEMOGLOBIN/100 IN BLOOD 0.3 % Normal 0.0-1.5 [facility] Comment on above: Performed By: #### L [id number] ####[facility] RESPIRATORY [id number] [place] [address] [place] Oxygen saturation in Blood 57.1 % Normal [facility] Comment on above: Performed By: #### L [id number] ####[facility] RESPIRATORY [id number] [address] [place] [address] [place] OXYGENATED HEMOGLOBIN IN BLOOD 56.1 % Normal [facility] Comment on above: Performed By: #### L [id number] ####[facility] RESPIRATORY [id number] [address] [place] [address] [place] IRON AND TIBCon 04-26-2023 IRON (UG/DL) IN SER/PLAS 16 ug/dL Low 50-212 [facility] Comment on above: Performed By: #### L [id number] ####[facility] LAB (BEAKER)[id number] [place] [address] IRON BINDING CAPACITY (UG/DL) IN SER/PLAS 143 ug/dL Low 250-450 [facility] Comment on above: Performed By: #### L [id number] ####[facility] [place] [address] IRON BINDING CAPACITY.UNSATURAT ED (UG/DL) IN SER/PLAS 127.0 ug/dL Low 155.0-355.0 [facility] Comment on above: Performed By: #### L [id number] ####[facility] ([facility] [place] [address] IRON SATURATION (%) IN SER/PLAS 11 % Low 20-50 [facility] Comment on above: Performed By: #### L [id number] ####[facility] [place] [address] LACTIC ACID, PLASMAon 2022 LACTATE (MMOL/L) IN SER/PLAS 0.6 mmol/L Normal 0.5-2.2 [facility] Comment on above: Performed By: #### L [id number] ####[facility] (BEAKER)[address] [place] [address] MAGNESIUMon 04-26-2023 Magnesium [Mass/Vol] 1.6 mg/dL Low 1.9-2.7 [facility] Comment on above: Performed By: #### L [id number] ####[facility] ([facility]ER)[address] [place] [address] Magnesium [Mass/Vol] 1.7 mg/dL Low 1.9-2.7 [facility] Comment on above: Performed By: #### L [id number] ####[facility] ([facility]ER)[address] [place] [address] PHOSPHORUSon 04-26-2023 Magnesium [Mass/Vol] 3.4 mg/dL Normal 2.5-5.0 [facility] Comment on above: Performed By: #### L [id number] ####[facility] ([facility])[address] [place] [address] Magnesium [Mass/Vol] 3.7 mg/dL Normal 2.5-5.0 [facility] Comment on above: Performed By: #### L [id number] ####[facility] ([facility])[address] [place] [address] POCT GLUCOSE METER UNSOLICIT ED RESULTSon 04-26-2023 Glucose [Mass/Vol] 134 mg/dL High 70-105 [facility] Comment on above: Order Comment: Waive d Testing in the ED is performed under the ED CLIA certificate #[id number]. Result Comment: [email or web address] Performed By: #### L [id number] ####[facility] ([facility])[address] [place] [address] Glucose [Mass/Vol] 129 mg/dL High 70-105 [facility] Comment on above: Order Comment: Waive d Testing in the ED is performed under the ED CLIA certificate #[id number]. Result Comment: [email or web address] Performed By: #### L [id number] ####[facility] ([facility])[address] [place] [address] Glucose [Mass/Vol] 121 mg/dL High 70-105 [facility] Comment on above: Order Comment: Waive d Testing in the ED is performed under the ED CLIA certificate #[id number]. Result Comment: than sen2 Performed By: #### L [id number] ####[facility] ([facility])[address] [place] [address] Glucose [Mass/Vol] 113 mg/dL High 70-105 [facility] Comment on above: Order Comment: Waive d Testing in the ED is performed under the ED CLIA certificate #[id number]. Result Comment: than sen2 Performed By: #### L [id number] ####[facility] ([facility])[address] [place] [address] PREALBUMINon 04-26-2023 Prealbumin [Mass/Vol] 6.4 mg/dL Normal [facility] Comment on above: Performed By: #### L [id number] ####[facility] ([facility])[address] [place] [address] TRANSFERRINon 04-26-2023 Magnesium [Mass/Vol] 82 mg/dL Low 168-348 [facility] Comment on above: Performed By: #### L [id number] ####[facility] ([facility])[address] [place] [address] 30on 04-25-2023 30 Normal [facility] AMMONIAon 04-25-2023 AMMONIA (UMOL/L) IN PLASMA 39 umol/L Normal 18-72 [facility] Comment on above: Performed By: #### L [id number] ####[facility] ([facility])[address] [place] [address] APTTon 04-25-2023 ACTIVATED PARTIAL THROMBOPLASTIN TIME IN PPP BY COAGULATION ASSAY 37.2 Seconds High 25.0-35.0 [facility] Comment on above: Result Comment: Clin ical significance of the APTT is questionable in the presence of heparin. Performed By: #### L [id number] ####[facility] ([facility])[address] [place] [address] BASIC METABOLIC PANELon 11 Anion gap [Moles/Vol] 9 mmol/L Normal 7-20 [facility] Comment on above: Performed By: #### L [id number] ####[facility] ([facility])[address] [place] [address] Calcium [Mass/Vol] 8.2 mg/dL Low 8.6-10.3 [facility] Comment on above: Performed By: #### L [id number] ####[facility] ([facility])[address] [place] [address] Chloride [Moles/Vol] 111 mmol/L High 98-107 [facility] Comment on above: Performed By: #### L [id number] ####[facility] ([facility])[address] [place] [address] CO2 [Moles/Vol] 24 mmol/L Normal 21-31 [facility] Comment on above: Performed By: #### L [id number] ####[facility] ([facility])[address] [place] [address] Creatinine [Mass/Vol] 0.71 mg/dL Normal 0.70-1.30 [facility] Comment on above: Performed By: #### L [id number] ####[facility] ([facility])[address] [place] [address] GLOMERULAR FILTRATION RATE ML/MIN/1.73 SQ M.PREDICTED 99.3 mL/min/1.73m*2 Normal >60.0 [facility] Comment on above: Result Comment: [facility]???s estimated glomerular filtration rate (eGFR) will no [...] of individuals. Performed By: #### L [id number] ####[facility] ([facility])[address] [place] [address] Glucose [Mass/Vol] 124 mg/dL High 70-100 [facility] Comment on above: Performed By: #### L [id number] ####[facility] ([facility])[address] [place] [address] Potassium [Moles/Vol] 3.9 mmol/L Normal 3.5-5.1 [facility] Comment on above: Performed By: #### L [id number] ####[facility] [place] [address] Sodium [Moles/Vol] 140 mmol/L Normal 136-145 [facility] Comment on above: Performed By: #### L [id number] ####[facility] (BEAKER)[address] [place] [address] Urea nitrogen [Mass/Vol] 17 mg/dL Normal 7-25 [facility] Comment on above: Performed By: #### L [id number] ####[facility] [place] [address] UREA NITROGEN/CREATININ E (MASS RATIO) IN SER/PLAS 23.9 Normal [facility] Comment on above: Performed By: #### L [id number] ####[facility] ([facility])[address] [address] CBCon 04-25-2023 Erythrocyte distribution width (RBC) [Ratio] 14.0 % Normal 11.5-15.0 [facility] Comment on above: Performed By: #### L [id number] ####[facility] ([facility])[address] [address] ERYTHROCYTE MEAN CORPUSCULAR HEMOGLOBIN CONCENTRATION (G/DL) BY AUTOMATED 34.1 g/dL Normal 32.0-35.0 [facility] Comment on above: Performed By: #### L [id number] ####[facility] ([facility])[address], [place] [address] Hematocrit (Bld) [Volume fraction] 24.9 % Low 39.0-55.0 [facility] Comment on above: Performed By: #### L [id number] ####[facility], [place] [address] Hemoglobin (Bld) [Mass/Vol] 8.5 g/dL Low 13.0-17.0 [facility] Comment on above: Performed By: #### L [id number] ####[facility] ([facility], [place] [address] IMMATURE PLATELET FRACTION % 5.1 % Normal 0.8-6.3 [facility] Comment on above: Performed By: #### L [id number] ####[facility] [place] [address] MCH (RBC) [Entitic mass] 30.7 pg Normal 27.0-33.0 [facility] Comment on above: Performed By: #### L [id number] ####[facility] (BEAKER)[address] [address] MCV (RBC) [Entitic vol] 89.9 fL Normal 82.0-98.0 [facility] Comment on above: Performed By: #### L [id number] ####[facility] ([facility] [address] PLATELETS (10*3/UL) IN BLOOD AUTOMATED COUNT 55 10*3/uL Low 150-400 [facility] Comment on above: Performed By: #### L [id number] ####[facility] [place] [address] RBC (Bld) [#/Vol] 2.77 10*6/uL Low 4.20-5.70 [facility] Comment on above: Performed By: #### L [id number] ####[facility] [place] [address] WBC (Bld) [#/Vol] 9.29 10*3/uL Normal 4.00-10.60 [facility] Comment on above: Performed By: #### L [id number] ####[facility] (BEAKER)[address] [place] [address] Erythrocyte distribution width (RBC) [Ratio] 14.6 % Normal 11.5-15.0 [facility] Comment on above: Performed By: #### L [id number] ####[facility] (BE[facility]ER)[address] [place] [address] ERYTHROCYTE MEAN CORPUSCULAR HEMOGLOBIN CONCENTRATION (G/DL) BY AUTOMATED 34.1 g/dL Normal 32.0-35.0 [facility] Comment on above: Performed By: #### L [id number] ####[facility] (BE[facility]ER)[address] [place] [address] Hematocrit (Bld) [Volume fraction] 25.5 % Low 39.0-55.0 [facility] Comment on above: Performed By: #### L [id number] ####[facility] ([facility])[address] [place] [address] Hemoglobin (Bld) [Mass/Vol] 8.7 g/dL Low 13.0-17.0 [facility] Comment on above: Performed By: #### L [id number] ####[facility] ([facility])[address] [place] [address] IMMATURE PLATELET FRACTION % 5.5 % Normal 0.8-6.3 [facility] Comment on above: Performed By: #### L [id number] ####[facility] ([facility])[address] [place] [address] MCH (RBC) [Entitic mass] 31.0 pg Normal 27.0-33.0 [facility] Comment on above: Performed By: #### L [id number] ####[facility] ([facility])[address] [place] [address] MCV (RBC) [Entitic vol] 90.7 fL Normal 82.0-98.0 [facility] Comment on above: Performed By: #### L [id number] ####[facility] ([facility])[address] [place] [address] PLATELETS (10*3/UL) IN BLOOD AUTOMATED COUNT 56 10*3/uL Low 150-400 [facility] Comment on above: Result Comment: P=69 , 1D Performed By: #### L [id number] ####[facility] ([facility])[address] [place] [address] RBC (Bld) [#/Vol] 2.81 10*6/uL Low 4.20-5.[address] [facility] Comment on above: Performed By: #### L [id number] ####[facility] [place] [address] WBC (Bld) [#/Vol] 10.33 10*3/uL Normal 4.00-10.60 [facility] Comment on above: Performed By: #### L [id number] ####[facility] (BE[facility]ER)[address] [place] [address] CO-OXIMETRYon 04-25-2023 CARBOXYHEMOGLOBIN/ HEMOGLOBIN TOTAL % IN BLOOD 0.8 % Normal [facility] Comment on above: Performed By: #### L [id number] ####[facility] [id number] [place] [address] [facility] Hemoglobin (Bld) [Mass/Vol] 7.8 g/dL Normal [facility] Comment on above: Performed By: #### L [id number] ####[facility] RESP[facility] [id number] [place] [address] [place] METHEMOGLOBIN/100 IN BLOOD 1.1 % Normal 0.0-1.5 [facility] Comment on above: Performed By: #### L [id number] ####[facility] RESPIRAT[facility] [id number] [place] [address] [place] Oxygen saturation in Blood 70.2 % Normal [facility] Comment on above: Performed By: #### L [id number] ####[facility] RESPIRATORY [id number] [place] [address] [place] OXYGENATED HEMOGLOBIN IN BLOOD 68.8 % Normal [facility] Comment on above: Performed By: #### L [id number] ####[facility] RESPIRATORY [id number] [place] [address] [facility] HEPATIC FUNCTION PANELon Albumin [Mass/Vol] 3.3 g/dL Low 3.5-5.7 [facility] Comment on above: Performed By: #### L [id number] ####[facility] (BEAKER)[address] [place] [address] ALP [Catalytic activity/Vol] 49 U/L Normal 34-104 [facility] Comment on above: Performed By: #### L [id number] ####[facility] (BE[facility]ER)[address] [place] [address] ALT [Catalytic activity/Vol] 60 U/L High 7-52 [facility] Comment on above: Performed By: #### L [id number] ####[facility] ([facility])[address] [place] [address] AST [Catalytic activity/Vol] 127 U/L High 13-39 [facility] Comment on above: Performed By: #### L [id number] ####[facility] ([facility])[address] [place] [address] Bilirubin [Mass/Vol] 0.5 mg/dL Normal 0.3-1.0 [facility] Comment on above: Performed By: #### L [id number] ####[facility] ([facility])[address] [place] [address] Magnesium [Mass/Vol] 0.2 mg/dL Normal 0-0.2 [facility] Comment on above: Performed By: #### L [id number] ####[facility] ([facility])[address] [place] [address] Protein [Mass/Vol] 4.8 g/dL Low 6.0-8.3 [facility] Comment on above: Performed By: #### L [id number] ####[facility] ([facility])[address] [place] [address] LACTIC ACID WITH 4 HOUR REFL EXon 04-25-2023 LACTATE (MMOL/L) IN SER/PLAS 1.4 mmol/L Normal 0.5-2.2 [facility] Comment on above: Performed By: #### L [id number] ####[facility] ([facility])[address] [place] [address] MAGNESIUMon 04-25-2023 Magnesium [Mass/Vol] 1.7 mg/dL Low 1.9-2.7 [facility] Comment on above: Performed By: #### L [id number] ####[facility] ([facility])[address] [place] [address] NURSNOTEon 04-25-2023 NURSNOTE Normal [facility] NURSNOTE Normal [facility] PHOSPHORUSon 04-25-2023 Magnesium [Mass/Vol] 2.3 mg/dL Low 2.5-5.0 [facility] Comment on above: Performed By: #### L [id number] ####[facility] ([employer])[address] [employer] [place] [address] POCT GLUCOSE METER UNSOLICIT ED RESULTSon 04-25-2023 Glucose [Mass/Vol] 106 mg/dL High 70-105 [facility] Comment on above: Order Comment: Waive d Testing in the ED is performed under the ED CLIA certificate #[id number]. Result Comment: [email or web address] Performed By: #### L [id number] ####[facility] ([employer])[address] , [place] [address] Glucose [Mass/Vol] 128 mg/dL High 70-105 [facility] Comment on above: Order Comment: Waive d Testing in the ED is performed under the ED CLIA certificate #[id number]. Result Comment: [email or web address] Performed By: #### L [id number] ####[facility] ([employer])[address] [employer] [place] [address] PROTIME-INRon 04-25-2023 INR IN PPP BY COAGULATION ASSAY 1.34 High 0.90-1.10 [facility] Comment on above: Result Comment: ACCC P [...] CHEST 1995;108:[id number]. Performed By: #### L [id number] ####[facility] ([employer])[address] [place] [address] PROTHROMBIN TIME (PT) IN PPP BY COAGULATION ASSAY 16.6 Seconds High 12.3-14.8 [facility] Comment on above: Performed By: #### L [id number] ####[facility] ([facility])[address] [place] [address] INR IN PPP BY COAGULATION ASSAY 1.39 High 0.90-1.10 [facility] Comment on above: Result Comment: ACCC P [...] CHEST 1995;108:[id number]. Performed By: #### L [id number] ####[facility] ([employer])[address] [place] [address] PROTHROMBIN TIME (PT) IN PPP BY COAGULATION ASSAY 17.1 Seconds High 12.3-14.8 [facility] Comment on above: Performed By: #### L [id number] ####[facility] (BEAKER)[address] [place] [address] 30on 04-24-2023 30 Normal [facility] 30 Normal [facility] 30 Normal [facility] ARTERIAL BLOOD GAS WITH IONI ZED CALCIUMon 04-24-2023 Base excess Calc (Bld) [Moles/Vol] -2.0000 mmol/L Normal -2.0-3.0 [facility] Comment on above: Performed By: #### L [id number] ####[facility] RESPIRATORY [id number] [place] [address] [facility] CALCIUM IONIZED (MMOL/L) IN BLOOD 1.06 mmol/L Low 1.15-1.33 [facility] Comment on above: Performed By: #### L [id number] ####[facility] RESPIRATORY [id number] [place] [address] [place] CO2 (Bld) [Partial pressure] 31 mm[Hg] Low 35-48 [facility] Comment on above: Performed By: #### L [id number] ####[facility] RESPIRATORY [id number] [place] [address] [place] HCO3 (Bld) [Moles/Vol] 21.5 mmol/L Normal 21.0-28.0 [facility] Comment on above: Performed By: #### L [id number] ####[facility] RESPIRATORY [id number] [place] [address] [place] Oxygen (Bld) [Partial pressure] 118 mm[Hg] High 83-100 [facility] Comment on above: Performed By: #### L [id number] ####[facility] RESPIRATORY [id number] [place] [address] [place] OXYGEN SATURATION (%) IN ARTERIAL BLOOD 99.4 % High 94.0-98.0 [facility] Comment on above: Performed By: #### L [id number] ####[facility] RESPIRATORY [id number] [place] [address] [place] pH (Bld) 7.45 [pH] Normal 7.35-7.45 [facility] Comment on above: Performed By: #### L [id number] ####[facility] RESPIRATORY [id number] [place] [address] [facility] SOURCE OF OXYGEN AC/VC Normal [facility] Comment on above: Performed By: #### L [id number] ####[facility] RESPIRATORY [id number] [place] [address] [place] TIDAL VOLUME (VT) CC 8 Normal [facility] Comment on above: Performed By: #### L [id number] ####[facility] RESPIRATORY [id number] [place] [address] [facility] BASIC METABOLIC PANELon 11-0 Anion gap [Moles/Vol] 10 mmol/L Normal 7-20 [facility] Comment on above: Performed By: #### L [id number] ####[facility] (BEAKER)[address] [place] [address] Calcium [Mass/Vol] 8.5 mg/dL Low 8.6-10.3 [facility] Comment on above: Performed By: #### L [id number] ####[facility] (BEAKER)[address] [place] [address] Chloride [Moles/Vol] 113 mmol/L High 98-107 [facility] Comment on above: Performed By: #### L [id number] ####[facility] (BEAKER)[address] [place] [address] CO2 [Moles/Vol] 24 mmol/L Normal 21-31 [facility] Comment on above: Performed By: #### L [id number] ####[facility] (BEAKER)[address] [place] [address] Creatinine [Mass/Vol] 0.83 mg/dL Normal 0.70-1.30 [facility] Comment on above: Performed By: #### L [id number] ####[facility] (BEAKER)[address] [place] [address] GLOMERULAR FILTRATION RATE ML/MIN/1.73 SQ M.PREDICTED 94.7 mL/min/1.73m*2 Normal >60.0 [facility] Comment on above: Result Comment: [facility]???s estimated glomerular filtration rate (eGFR) will no [...] of individuals. Performed By: #### L [id number] ####[facility] ([facility])[address] [place] [address] Glucose [Mass/Vol] 208 mg/dL High 70-100 [facility] Comment on above: Performed By: #### L [id number] ####[facility] ([facility])[address] [place] [address] Potassium [Moles/Vol] 3.6 mmol/L Normal 3.5-5.1 [facility] Comment on above: Performed By: #### L [id number] ####[facility] (BEAKER)[address] [place] [address] Sodium [Moles/Vol] 143 mmol/L Normal 136-145 [facility] Comment on above: Performed By: #### L [id number] ####[facility] (BEAKER)[address] [place] [address] Urea nitrogen [Mass/Vol] 19 mg/dL Normal 7-25 [facility] Comment on above: Performed By: #### L [id number] ####[facility] (BEAKER)[address] [place] [address] UREA NITROGEN/CREATININ E (MASS RATIO) IN SER/PLAS 22.9 Normal [facility] Comment on above: Performed By: #### L [id number] ####[facility] (BEAKER)[address] [place] [address] CALCIUM, IONIZEDon 3 CALCIUM IONIZED (MMOL/L) IN BLOOD 1.20 mmol/L Normal 1.15-1.33 [facility] Comment on above: Performed By: #### C ALCIUM, IONIZED ####[facility] RESPIRATORY [id number] [place] [address] [place] CBCon 04-24-2023 Erythrocyte distribution width (RBC) [Ratio] 13.9 % Normal 11.5-15.0 [facility] Comment on above: Performed By: #### L [id number] ####[facility] (BEAKER)[address] [place] [address] ERYTHROCYTE MEAN CORPUSCULAR HEMOGLOBIN CONCENTRATION (G/DL) BY AUTOMATED 34.3 g/dL Normal 32.0-35.0 [facility] Comment on above: Performed By: #### L [id number] ####[facility] (BEAKER)[address] [place] [address] Hematocrit (Bld) [Volume fraction] 28.0 % Low 39.0-55.0 [facility] Comment on above: Performed By: #### L [id number] ####[facility] (BEAKER)[address] [place] [address] Hemoglobin (Bld) [Mass/Vol] 9.6 g/dL Low 13.0-17.0 [facility] Comment on above: Performed By: #### L [id number] ####[facility] (BEAKER)[address] [place] [address] IMMATURE PLATELET FRACTION % 5.1 % Normal 0.8-6.3 [facility] Comment on above: Performed By: #### L [id number] ####[facility] (BEAKER)[address] [place] [address] MCH (RBC) [Entitic mass] 30.7 pg Normal 27.0-33.0 [facility] Comment on above: Performed By: #### L [id number] ####[facility] (BEAKER)[address] [place] [address] MCV (RBC) [Entitic vol] 89.5 fL Normal 82.0-98.0 [facility] Comment on above: Performed By: #### L [id number] ####[facility] (BEAKER)[address] [place] [address] PLATELETS (10*3/UL) IN BLOOD AUTOMATED COUNT 69 10*3/uL Low 150-400 [facility] Comment on above: Performed By: #### L [id number] ####[facility] ([facility])[address] [place] [address] RBC (Bld) [#/Vol] 3.13 10*6/uL Low 4.20-5.70 [facility] Comment on above: Performed By: #### L [id number] ####[facility] ([facility])[address] [place] [address] WBC (Bld) [#/Vol] 16.62 10*3/uL High 4.00-10.60 [facility] Comment on above: Performed By: #### L [id number] ####[facility] ([facility])[address] [place] [address] CO-OXIMETRYon 04-24-2023 CARBOXYHEMOGLOBIN/ HEMOGLOBIN TOTAL % IN BLOOD 1.2 % Normal [facility] Comment on above: Performed By: #### L [id number] ####[facility] [id number] [place] [address] [place] Hemoglobin (Bld) [Mass/Vol] 9.6 g/dL Normal [facility] Comment on above: Performed By: #### L [id number] ####[facility] [id number] [place] [address] [place] METHEMOGLOBIN/100 IN BLOOD 0.4 % Normal 0.0-1.5 [facility] Comment on above: Performed By: #### L [id number] ####[facility] [id number] [place] [address] [place] Oxygen saturation in Blood 67.5 % Normal [facility] Comment on above: Performed By: #### L [id number] ####[facility] [id number] [place] [address] [place] OXYGENATED HEMOGLOBIN IN BLOOD 66.4 % Normal [facility] Comment on above: Performed By: #### L [id number] ####[facility] RESPIRATORY [id number] [place] [address] [place] HEMOGLOBIN AND HEMATOCRIT, B LOODon 04-24-2023 Hematocrit (Bld) [Volume fraction] 28.1 % Low 39.0-55.0 [facility] Comment on above: Performed By: #### L [id number] ####[facility] (BEAKER)[address] [place] [address] Hemoglobin (Bld) [Mass/Vol] 9.5 g/dL Low 13.0-17.0 [facility] Comment on above: Performed By: #### L [id number] ####[facility] ([facility])[address] [place] [address] HEPATIC FUNCTION PANELon Albumin [Mass/Vol] 3.7 g/dL Normal 3.5-5.7 [facility] Comment on above: Performed By: #### L [id number] ####[facility] (BEAKER)[address] [place] [address] ALP [Catalytic activity/Vol] 39 U/L Normal 34-104 [facility] Comment on above: Performed By: #### L [id number] ####[facility] (BEAKER)[address] [place] [address] ALT [Catalytic activity/Vol] 82 U/L High 7-52 [facility] Comment on above: Performed By: #### L [id number] ####[facility] (BEAKER)[address] [place] [address] AST [Catalytic activity/Vol] 229 U/L High 13-39 [facility] Comment on above: Performed By: #### L [id number] ####[facility] (BEAKER)[address] [place] [address] Bilirubin [Mass/Vol] 0.5 mg/dL Normal 0.3-1.0 [facility] Comment on above: Performed By: #### L [id number] ####[facility] ([facility])[address] [place] [address] Magnesium [Mass/Vol] 0.2 mg/dL Normal 0-0.2 [facility] Comment on above: Performed By: #### L [id number] ####[facility] [place] [address] Protein [Mass/Vol] 4.9 g/dL Low 6.0-8.3 [facility] Comment on above: Performed By: #### L [id number] ####[facility] ([facility])[address] [place] [address] LACTIC ACID WITH 4 HOUR REFL EXon 04-24-2023 LACTATE (MMOL/L) IN SER/PLAS 1.3 mmol/L Normal 0.5-2.2 [facility] Comment on above: Performed By: #### L [id number] ####[facility] ([facility])[address] [place] [address] Performed By: #### L [id number] ####[facility] ([facility])[address] [place] [address] LACTATE (MMOL/L) IN SER/PLAS 4.0 mmol/L Critically high 0.5-2.2 [facility] Comment on above: Result Comment: Prev ious result verified on 04/23/2023 2300 on specimen/case [id number] called with component Lactate blood venous for procedure Lactic acid, venous, whole blood with value 9.1 mmol/L. Performed By: #### L [id number] ####[facility] ([facility])[address] [place] [address] LACTATE (MMOL/L) IN SER/PLAS 9.1 mmol/L Critically high 0.5-2.2 [facility] Comment on above: Result Comment: Prev ious result verified on 04/23/2023 2137 on specimen/case [id number] called with component Lactate blood venous for procedure Lactic acid, venous, whole blood with value 12.1 mmol/L. Performed By: #### L [id number] ####[facility] ([facility])[address] [place] [address] MAGNESIUMon 04-24-2023 Magnesium [Mass/Vol] 1.8 mg/dL Low 1.9-2.7 [facility] Comment on above: Performed By: #### L [id number] ####[facility] ([facility])[address] [place] [address] MYOGLOBIN, URINEon 3 MYOGLOBIN URINE 2 mg/L High 0-1 [facility] Comment on above: Result Comment: [...] was developed and its performance characteristicsdetermined by [facility]. It has not been cleared orapproved by the [place] Food and Drug Administration. This test wasperformed in a CLIA certified laboratory and is intended forclinical purposes.Performed By: [facility] [place], [place] [address] Director: Wenceslao Healy MD, PhDCLIA Number: [id number] Performed By: #### L [id number] ####[facility] ([facility])[address] [place] [address] POCT GLUCOSE METER UNSOLICIT ED RESULTSon 04-24-2023 Glucose [Mass/Vol] 129 mg/dL High 70-105 [facility] Comment on above: Order Comment: Waive d Testing in the ED is performed under the ED CLIA certificate #[id number]. Result Comment: afin [email or web address] Performed By: #### L [id number] ####[facility] [place] [address] Glucose [Mass/Vol] 116 mg/dL High 70-105 [facility] Comment on above: Order Comment: Waive d Testing in the ED is performed under the ED CLIA certificate #[id number]. Result Comment: dadk [email or web address] Performed By: #### L [id number] ####[facility] (BEAKER)[address] [place] [address] Glucose [Mass/Vol] 106 mg/dL High 70-105 [facility] Comment on above: Order Comment: Waive d Testing in the ED is performed under the ED CLIA certificate #[id number]. Result Comment: nhay man Performed By: #### L [id number] ####[facility] (BEAKER)[address] [place] [address] Glucose [Mass/Vol] 113 mg/dL High 70-105 [facility] Comment on above: Order Comment: Waive d Testing in the ED is performed under the ED CLIA certificate #[id number]. Result Comment: nhay man Performed By: #### L [id number] ####[facility] (BEAKER)[address] [place] [address] Glucose [Mass/Vol] 118 mg/dL High 70-105 [facility] Comment on above: Order Comment: Waive d Testing in the ED is performed under the ED CLIA certificate #[id number]. Result Comment: nhay man Performed By: #### L [id number] ####[facility] (BEAKER)[address] [place] [address] Glucose [Mass/Vol] 75 mg/dL Normal 70-105 [facility] Comment on above: Order Comment: Waive d Testing in the ED is performed under the ED CLIA certificate #[id number]. Result Comment: nhay man Performed By: #### L [id number] ####[facility] (BEAKER)[address] [place] [address] Glucose [Mass/Vol] 163 mg/dL High 70-105 [facility] Comment on above: Order Comment: Waive d Testing in the ED is performed under the ED CLIA certificate #[id number]. Result Comment: than sen2 Performed By: #### L [id number] ####[facility] (BEAKER)[address] [place] [address] Glucose [Mass/Vol] 176 mg/dL High 70-105 [facility] Comment on above: Order Comment: Waive d Testing in the ED is performed under the ED CLIA certificate #[id number]. Result Comment: than sen2 Performed By: #### L [id number] ####[facility] (AKER)[address] [place] [address] Glucose [Mass/Vol] 147 mg/dL High 70-105 [facility] Comment on above: Order Comment: Waive d Testing in the ED is performed under the ED CLIA certificate #[id number]. Result Comment: kste [email or web address] Performed By: #### L [id number] ####[facility] ([facility])[address] [place] [address] Glucose [Mass/Vol] 199 mg/dL High 70-105 [facility] Comment on above: Order Comment: Waive d Testing in the ED is performed under the ED CLIA certificate #[id number]. Result Comment: kste [email or web address] Performed By: #### L [id number] ####[facility] (AKER)[address] [place] [address] Glucose [Mass/Vol] 202 mg/dL High 70-105 [facility] Comment on above: Order Comment: Waive d Testing in the ED is performed under the ED CLIA certificate #[id number]. Result Comment: than sen2 Performed By: #### L [id number] ####[facility] (BEAKER)[address] [place] [address] Glucose [Mass/Vol] 233 mg/dL High 70-105 [facility] Comment on above: Order Comment: Waive d Testing in the ED is performed under the ED CLIA certificate #[id number]. Result Comment: than sen2 Performed By: #### L [id number] ####[facility] (BEAKER)[address] [place] [address] Glucose [Mass/Vol] 253 mg/dL High 70-105 [facility] Comment on above: Order Comment: Waive d Testing in the ED is performed under the ED CLIA certificate #[id number]. Result Comment: kste [email or web address] Performed By: #### L [id number] ####[facility] (BEAKER)[address] [place] [address] Glucose [Mass/Vol] 279 mg/dL High 70-105 [facility] Comment on above: Order Comment: Waive d Testing in the ED is performed under the ED CLIA certificate #[id number]. Result Comment: than sen2 Performed By: #### L [id number] ####[facility] (BEAKER)[address] [place] [address] Glucose [Mass/Vol] 270 mg/dL High 70-105 [facility] Comment on above: Order Comment: Waive d Testing in the ED is performed under the ED CLIA certificate #[id number]. Result Comment: than sen2 Performed By: #### L [id number] ####[facility] (BEAKER)[address] [address] Glucose [Mass/Vol] 267 mg/dL High 70-105 [facility] Comment on above: Order Comment: Waive d Testing in the ED is performed under the ED CLIA certificate #[id number]. Result Comment: ileana [email or web address] Performed By: #### L [id number] ####[facility] (BEAKER)[address] [place] [address] POTASSIUM, WHOLE BLOODon Potassium [Moles/Vol] 4.4 mmol/L Normal 3.5-5.1 [facility] Comment on above: Performed By: #### P OTASSIUM, WHOLE BLOOD ####[facility] RESPIRATORY [id number] [place] [address] [place] SODIUM, WHOLE BLOODon 2022 SODIUM, WHOLE BLOOD 141 Normal 136-145 [facility] Comment on above: Performed By: #### S ODIUM, WHOLE BLOOD ####[facility] RESPIRATORY [id number] [place] [address] [place] TROPONIN Ion 04-24-2023 Troponin I.cardiac [Mass/Vol] 34.92 ng/mL Critically high 0.00-0.04 [facility] Comment on above: Result Comment: Prev ious result verified on 04/23/2023 2259 on specimen/case [id number] called with component Troponin I for procedure Troponin I with value 22.65 ng/mL. Performed By: #### L [id number] ####[facility] ([facility])[address] [place] [address] 30on 04-23-2023 30 Normal [facility] 30 Normal [facility] AMYLASEon 04-23-2023 Amylase [Catalytic activity/Vol] 86 U/L Normal 29-103 [facility] Comment on above: Performed By: #### L [id number] ####[facility] ([facility])[address] [place] [address] APTTon 04-23-2023 ACTIVATED PARTIAL THROMBOPLASTIN TIME IN PPP BY COAGULATION ASSAY 45.1 Seconds High 25.0-35.0 [facility] Comment on above: Result Comment: Clin ical significance of the APTT is questionable in the presence of heparin. Performed By: #### L [id number] ####[facility] ([facility])[address] [place] [address] ACTIVATED PARTIAL THROMBOPLASTIN TIME IN PPP BY COAGULATION ASSAY 49.0 Seconds High 25.0-35.0 [facility] Comment on above: Result Comment: Clin ical significance of the APTT is questionable in the presence of heparin. Performed By: #### L [id number] ####[facility] ([facility])[address] [place] [address] ARTERIAL BLOOD GAS WITH IONI ZED CALCIUMon 04-23-2023 Base excess Calc (Bld) [Moles/Vol] -16.73087 mmol/L Low -2.0-3.0 [facility] Comment on above: Performed By: #### L [id number] ####[facility] RESPIRATORY [id number] [place] [address] [facility] CALCIUM IONIZED (MMOL/L) IN BLOOD 1.15 mmol/L Normal 1.15-1.33 [facility] Comment on above: Performed By: #### L [id number] ####[facility] RESPIRATORY [id number] [place] [address] [facility] CO2 (Bld) [Partial pressure] 20 mm[Hg] Invalid Interpretation Code 35-48 [facility] Comment on above: Performed By: #### L [id number] ####[facility] RESPIRATORY [id number] [place] [address] [facility] HCO3 (Bld) [Moles/Vol] 8.8 mmol/L Low 21.0-28.0 [facility] Comment on above: Performed By: #### L [id number] ####[facility] [place] [id number] , [place] [address] [place] LPM 2 Normal [facility] Comment on above: Performed By: #### L [id number] ####[facility] RESPIRATORY [id number] , [place] [address] [place] Oxygen (Bld) [Partial pressure] 67 mm[Hg] Low 83-100 [facility] Comment on above: Performed By: #### L [id number] ####[facility] RESPIRATORY [id number] , [place] [address] [facility] OXYGEN SATURATION (%) IN ARTERIAL BLOOD 93.6 % Low 94.0-98.0 [facility] Comment on above: Performed By: #### L [id number] ####[facility] RESPIRATORY [id number] [place] [address] [place] pH (Bld) 7.25 [pH] Low 7.35-7.45 [facility] Comment on above: Performed By: #### L [id number] ####[facility] RESPIRATORY [id number] [place] [address] [facility] SOURCE OF OXYGEN Nasal cannula Normal [facility] Comment on above: Performed By: #### L [id number] ####[facility] RESPIRATORY [id number] [place] [address] [facility] Base excess Calc (Bld) [Moles/Vol] -15.87015 mmol/L Low -2.0-3.0 [facility] Comment on above: Order Comment: On ar rival to CVU Performed By: #### L [id number] ####[facility] RESPIRATORY [id number] [place] [address] [facility] CALCIUM IONIZED (MMOL/L) IN BLOOD 1.16 mmol/L Normal 1.15-1.33 [facility] Comment on above: Order Comment: On ar rival to CVU Performed By: #### L [id number] ####[facility] RESPIRATORY [id number] [place] [address] [facility] CO2 (Bld) [Partial pressure] 21 mm[Hg] Invalid Interpretation Code 35-48 [facility] Comment on above: Order Comment: On ar rival to CVU Performed By: #### L [id number] ####[facility] RESPIRATORY [id number] [place] [address] [facility] HCO3 (Bld) [Moles/Vol] 9.6 mmol/L Low 21.0-28.0 [facility] Comment on above: Order Comment: On ar rival to CVU Performed By: #### L [id number] ####[facility] RESPIRATORY [id number] [place] [address] [facility] Oxygen (Bld) [Partial pressure] 63 mm[Hg] Low 83-100 [facility] Comment on above: Order Comment: On ar rival to CVU Performed By: #### L [id number] ####[facility] RESPIRATORY [id number] [place] [address] [place] OXYGEN SATURATION (%) IN ARTERIAL BLOOD 92.2 % Low 94.0-98.0 [facility] Comment on above: Order Comment: On ar rival to CVU Performed By: #### L [id number] ####[facility] RESPIRATORY [id number] [place] [address] [facility] pH (Bld) 7.27 [pH] Low 7.35-7.45 [facility] Comment on above: Order Comment: On ar rival to CVU Performed By: #### L [id number] ####[facility] RESPIRATORY [id number] [place] [address] [place] SOURCE OF OXYGEN Nasal cannula Normal [facility] Comment on above: Order Comment: On ar rival to CVU Performed By: #### L [id number] ####[facility] RESPIRATORY [id number] [place] [address] [facility] Anesthesiaon 04-23-2023 Anesthesia [id number] Gui Ortiz 1955 M Date Provider Department Center 04/23/2023 KAUSHAL FINLEY [facility] SICU None Family History Family history unknown: Yes Normal [facility] BASIC METABOLIC PANELon 11-0 Anion gap [Moles/Vol] 10 mmol/L Normal 7-20 [facility] Comment on above: Performed By: #### L [id number] ####[facility] (BEAKER)[address] [place] [address] Calcium [Mass/Vol] 8.4 mg/dL Low 8.6-10.3 [facility] Comment on above: Performed By: #### L [id number] ####[facility] (BEAKER)[address] [place] [address] Chloride [Moles/Vol] 114 mmol/L High 98-107 [facility] Comment on above: Performed By: #### L [id number] ####[facility] (BEAKER)[address] [place] [address] CO2 [Moles/Vol] 25 mmol/L Normal 21-31 [facility] Comment on above: Performed By: #### L [id number] ####[facility] (BEAKER)[address] [place] [address] Creatinine [Mass/Vol] 0.86 mg/dL Normal 0.70-1.30 [facility] Comment on above: Performed By: #### L [id number] ####[facility] (BEAKER)[address] [place] [address] GLOMERULAR FILTRATION RATE ML/MIN/1.73 SQ M.PREDICTED 93.7 mL/min/1.73m*2 Normal >60.0 [facility] Comment on above: Result Comment: [facility]???s estimated glomerular filtration rate (eGFR) will no [...] of individuals. Performed By: #### L [id number] ####[facility] ([facility])[address] [place] [address] Glucose [Mass/Vol] 86 mg/dL Normal 70-100 [facility] Comment on above: Performed By: #### L [id number] ####[facility] ([facility])[address] [facility] [place] [address] Potassium [Moles/Vol] 3.9 mmol/L Normal 3.5-5.1 [facility] Comment on above: Performed By: #### L [id number] ####[facility] ([facility])[address] , [place] [address] Sodium [Moles/Vol] 145 mmol/L Normal 136-145 [facility] Comment on above: Performed By: #### L [id number] ####[facility] ([facility])[address] [facility] [facility] [place] [address] Urea nitrogen [Mass/Vol] 19 mg/dL Normal 7-25 [facility] Comment on above: Performed By: #### L [id number] ####[facility] ([facility])[address] , [place] [address] UREA NITROGEN/CREATININ E (MASS RATIO) IN SER/PLAS 22.1 Normal [facility] Comment on above: Performed By: #### L [id number] ####[facility] (BEAKER)[address] , [place] [address] CALCIUM, IONIZEDon CALCIUM IONIZED (MMOL/L) IN BLOOD 1.21 mmol/L Normal 1.15-1.33 [facility] Comment on above: Performed By: #### C ALCIUM, IONIZED ####[facility] RESPIRATORY [id number] [place] [address] [facility] CALCIUM IONIZED (MMOL/L) IN BLOOD 1.19 mmol/L Normal 1.15-1.33 [facility] Comment on above: Performed By: #### C ALCIUM, IONIZED ####[facility] RESPIRATORY [id number] [place] [address] [facility] CALCIUM IONIZED (MMOL/L) IN BLOOD 1.07 mmol/L Low 1.15-1.33 [facility] Comment on above: Performed By: #### C ALCIUM, IONIZED ####[facility] RESPIRATORY [id number] [place] [address] [facility] CBCon 04-23-2023 Erythrocyte distribution width (RBC) [Ratio] 13.3 % Normal 11.5-15.0 [facility] Comment on above: Performed By: #### L [id number] ####[facility] ([facility])[address] [place] [address] ERYTHROCYTE MEAN CORPUSCULAR HEMOGLOBIN CONCENTRATION (G/DL) BY AUTOMATED 34.2 g/dL Normal 32.0-35.0 [facility] Comment on above: Performed By: #### L [id number] ####[facility] ([facility])[address] [place] [address] Hematocrit (Bld) [Volume fraction] 22.5 % Low 39.0-55.0 [facility] Comment on above: Performed By: #### L [id number] ####[facility] ([facility])[address] [place] [address] Hemoglobin (Bld) [Mass/Vol] 7.7 g/dL Low 13.0-17.0 [facility] Comment on above: Result Comment: Resu lts checked Performed By: #### L [id number] ####[facility] ([facility])[address] [place], [place] [address] IMMATURE PLATELET FRACTION % 2.5 % Normal 0.8-6.3 [facility] Comment on above: Performed By: #### L [id number] ####[facility] ([facility])[address] [place] [address] MCH (RBC) [Entitic mass] 31.3 pg Normal 27.0-33.0 [facility] Comment on above: Performed By: #### L [id number] ####[facility] ([facility])[address] [place] [address] MCV (RBC) [Entitic vol] 91.5 fL Normal 82.0-98.0 [facility] Comment on above: Performed By: #### L [id number] ####[facility] ([facility])[address] [place] [address] PLATELETS (10*3/UL) IN BLOOD AUTOMATED COUNT 80 10*3/uL Low 150-400 [facility] Comment on above: Result Comment: Plt est 74 ok Performed By: #### L [id number] ####[facility] ([facility])[address] [place] [address] RBC (Bld) [#/Vol] 2.46 10*6/uL Low 4.20-5.70 [facility] Comment on above: Performed By: #### L [id number] ####[facility] ([facility])[address] [place] [address] WBC (Bld) [#/Vol] 7.84 10*3/uL Normal 4.00-10.60 [facility] Comment on above: Performed By: #### L [id number] ####[facility] ([facility])[address] [place] [address] CBC WITH AUTO DIFFERENTIALon 04-23-2023 Erythrocyte distribution width (RBC) [Ratio] 14.0 % Normal 11.5-15.0 [facility] Comment on above: Performed By: #### L [id number] ####[facility] (BEAKER)[address] [place] [address] ERYTHROCYTE MEAN CORPUSCULAR HEMOGLOBIN CONCENTRATION (G/DL) BY AUTOMATED 33.9 g/dL Normal 32.0-35.0 [facility] Comment on above: Performed By: #### L [id number] ####[facility] (BEAKER)[address] [place] [address] Hematocrit (Bld) [Volume fraction] 18.0 % Low 39.0-55.0 [facility] Comment on above: Performed By: #### L [id number] ####[facility] [place] [address] Hemoglobin (Bld) [Mass/Vol] 6.1 g/dL Low 13.0-17.0 [facility] Comment on above: Performed By: #### L [id number] ####[facility] [place] [address] IMMATURE PLATELET FRACTION % 3.6 % Normal 0.8-6.3 [facility] Comment on above: Performed By: #### L [id number] ####[facility] [place] [address] MCH (RBC) [Entitic mass] 31.4 pg Normal 27.0-33.0 [facility] Comment on above: Performed By: #### L [id number] ####[facility] (BEAKER)[address] [place] [address] MCV (RBC) [Entitic vol] 92.8 fL Normal 82.0-98.0 [facility] Comment on above: Performed By: #### L [id number] ####[facility] (BEAKER)[address] [place] [address] NRBC (PER 100 WBCS) BY AUTOMATED COUNT 0.0 % Normal 0 [facility] Comment on above: Performed By: #### L [id number] ####[facility] (BEAKER)[address] [place] [address] PLATELETS (10*3/UL) IN BLOOD AUTOMATED COUNT 68 10*3/uL Low 150-400 [facility] Comment on above: Performed By: #### L [id number] ####[facility] [place] [address] RBC (Bld) [#/Vol] 1.94 10*6/uL Low 4.20-5.70 [facility] Comment on above: Performed By: #### L [id number] ####[facility] ([facility])[address] [place] [address] WBC (Bld) [#/Vol] 12.79 10*3/uL High 4.00-10.60 [facility] Comment on above: Performed By: #### L [id number] ####[facility] ([facility])[address] [place] [address] CK TOTAL AND CKMBon 04-23-20 CREATINE KINASE (U/L) IN SER/PLAS 4110.0 U/L High 30.0-223.0 [facility] Comment on above: Performed By: #### L [id number] ####[facility] ([facility])[address] [place] [address] CREATINE KINASE MB/CREATINE KINASE TOTAL BY CALCULATION 2.9 High <=1.9 [facility] Comment on above: Performed By: #### L [id number] ####[facility] ([facility])[address] [place] [address] CREATINE KINASE-MB (NG/ML) IN SER/PLAS 122.5 ng/mL High 0.0-5.0 [facility] Comment on above: Performed By: #### L [id number] ####[facility] [place] [address] CO-OXIMETRYon 04-23-2023 CARBOXYHEMOGLOBIN/ HEMOGLOBIN TOTAL % IN BLOOD 1.3 % Normal [facility] Comment on above: Performed By: #### L [id number] ####[facility] RESPIRATORY [id number] [place] [address] [place] Hemoglobin (Bld) [Mass/Vol] 7.8 g/dL Normal [facility] Comment on above: Performed By: #### L [id number] ####[facility] RESPIRATORY [id number] [place] [address] [place] METHEMOGLOBIN/100 IN BLOOD 1.0 % Normal 0.0-1.5 [facility] Comment on above: Performed By: #### L [id number] ####[facility] RESPIRATORY [id number] [place] [address] [place] Oxygen saturation in Blood 65.8 % Normal [facility] Comment on above: Performed By: #### L [id number] ####[facility] RESPIRATORY [id number] [place] [address] [place] OXYGENATED HEMOGLOBIN IN BLOOD 64.2 % Normal [facility] Comment on above: Performed By: #### L [id number] ####[facility] RESPIRATORY [id number] [place] [address] [facility] COMPREHENSIVE METABOLIC PANE Roddy 04-23-2023 Albumin [Mass/Vol] 3.6 g/dL Normal 3.5-5.7 [facility] Comment on above: Performed By: #### L [id number] ####[facility] (BEAKER)[address] [place] [address] ALP [Catalytic activity/Vol] 34 U/L Normal 34-104 [facility] Comment on above: Performed By: #### L [id number] ####[facility] (BEAKER)[address] [place] [address] ALT [Catalytic activity/Vol] 22 U/L Normal 7-52 [facility] Comment on above: Performed By: #### L [id number] ####[facility] ([facility]ER)[address] [place] [address] Anion gap [Moles/Vol] 21 mmol/L High 7-20 [facility] Comment on above: Performed By: #### L [id number] ####[facility] ([facility]ER)[address] [place] [address] AST [Catalytic activity/Vol] 132 U/L High 13-39 [facility] Comment on above: Performed By: #### L [id number] ####[facility] (BE[facility]ER)[address] [place] [address] Bilirubin [Mass/Vol] 0.5 mg/dL Normal 0.3-1.0 [facility] Comment on above: Performed By: #### L [id number] ####[facility] (BE[facility]ER)[address] [place] [address] Calcium [Mass/Vol] 8.1 mg/dL Low 8.6-10.3 [facility] Comment on above: Performed By: #### L [id number] ####[facility] (BE[facility]ER)[address] [place] [address] Chloride [Moles/Vol] 109 mmol/L High 98-107 [facility] Comment on above: Performed By: #### L [id number] ####[facility] (BEAKER)[address] [place] [address] CO2 [Moles/Vol] 20 mmol/L Low 21-31 [facility] Comment on above: Performed By: #### L [id number] ####[facility] (BE[facility]ER)[address] [place] [address] Creatinine [Mass/Vol] 1.16 mg/dL Normal 0.70-1.30 [facility] Comment on above: Performed By: #### L [id number] ####[facility] (BEAKER)[address] [place] [address] GLOMERULAR FILTRATION RATE ML/MIN/1.73 SQ M.PREDICTED 68.2 mL/min/1.73m*2 Normal >60.0 [facility] Comment on above: Result Comment: [facility]???s estimated glomerular filtration rate (eGFR) will no [...] of individuals. Performed By: #### L [id number] ####[facility] ([facility])[address] [place] [address] Glucose [Mass/Vol] 255 mg/dL High 70-100 [facility] Comment on above: Performed By: #### L [id number] ####[facility] ([facility])[address] [place] [address] Potassium [Moles/Vol] 4.4 mmol/L Normal 3.5-5.1 [facility] Comment on above: Performed By: #### L [id number] ####[facility] ([facility])[address] [place] [address] Protein [Mass/Vol] 4.7 g/dL Low 6.0-8.3 [facility] Comment on above: Performed By: #### L [id number] ####[facility] ([facility])[address] [place] [address] Sodium [Moles/Vol] 146 mmol/L High 136-145 [facility] Comment on above: Performed By: #### L [id number] ####[facility] ([facility])[address] [place] [address] Urea nitrogen [Mass/Vol] 21 mg/dL Normal 7-25 [facility] Comment on above: Performed By: #### L [id number] ####[facility] ([facility])[address] [place] [address] UREA NITROGEN/CREATININ E (MASS RATIO) IN SER/PLAS 18.1 [facility] Comment on above: Performed By: #### L [id number] ####[facility] ([facility])[address] [place] [address] CONSULTon 04-23-2023 CONSULT Normal [facility] CONSULT Normal [facility] FIBRINOGENon 04-23-2023 Magnesium [Mass/Vol] 258 mg/dL Normal 150-425 [facility] Comment on above: Performed By: #### L [id number] ####[facility] ([facility])[address] [place] [address] LACTIC ACID WITH 4 HOUR REFL EXon 04-23-2023 LACTATE (MMOL/L) IN SER/PLAS 12.1 mmol/L Critically high 0.5-2.2 [facility] Comment on above: Result Comment: Prev ious result verified on 04/22/2023 2146 on specimen/case [id number] called with component Lactate for procedure Lactic acid, plasma with value 2.6 mmol/L. Performed By: #### L [id number] ####[facility] ([facility])[address] [place] [address] LACTIC ACID, PLASMAon 2022 LACTATE (MMOL/L) IN SER/PLAS 2.2 mmol/L Normal 0.5-2.2 [facility] Comment on above: Performed By: #### L [id number] ####[facility] ([facility])[address] [place] [address] LIPASEon 04-23-2023 LIPASE (U/L) IN SER/PLAS 12 U/L Normal 11-82 [facility] Comment on above: Performed By: #### L [id number] ####[facility] ([facility])[address] [place] [address] MAGNESIUMon 04-23-2023 Magnesium [Mass/Vol] 1.8 mg/dL Low 1.9-2.7 [facility] Comment on above: Performed By: #### L [id number] ####[facility] ([facility])[address] [place] [address] MANUAL DIFFERENTIALon 2022 BASOPHILS (10*3/UL) IN BLOOD BY CALCULATION 0.01 10*3/uL Normal 0.00-0.20 [facility] Comment on above: Performed By: #### L [id number] ####[facility] ([facility])[address] [place] [address] BASOPHILS/100 LEUKOCYTES IN BLOOD BY AUTOMATED COUNT 0.1 % Normal 0.0-1.0 [facility] Comment on above: Performed By: #### L [id number] ####[facility] ([facility])[address] [place] [address] EOSINOPHILS (10*3/UL) IN BLOOD BY CALCULATION 0.00 10*3/uL Normal 0.00-0.50 [facility] Comment on above: Performed By: #### L [id number] ####[facility] ([facility])[address] [place] [address] EOSINOPHILS/100 LEUKOCYTES IN BLOOD BY AUTOMATED COUNT 0.0 % Normal 0.0-6.0 [facility] Comment on above: Performed By: #### L [id number] ####[facility] ([facility])[address] [place] [address] IMMATURE GRANULOCYTES (10*3/UL) IN BLOOD BY CALCULATION 0.09 10*3/uL Normal 0.00-0.20 [facility] Comment on above: Performed By: #### L [id number] ####[facility] ([facility])[address] [place] [address] IMMATURE GRANULOCYTES/100 LEUKOCYTES IN BLOOD BY AUTOMATED COUNT 0.7 % Normal 0.0-1.0 [facility] Comment on above: Performed By: #### L [id number] ####[facility] ([facility])[address] [place] [address] LYMPHOCYTES (10*3/UL) IN BLOOD BY CALCULATION 0.72 10*3/uL Low 1.20-4.00 [facility] Comment on above: Performed By: #### L [id number] ####[facility] ([facility])[address] [place] [address] LYMPHOCYTES/100 LEUKOCYTES IN BLOOD BY AUTOMATED COUNT 5.6 % Low 20.0-45.0 [facility] Comment on above: Performed By: #### L [id number] ####[facility] ([facility])[address] [place] [address] MONOCYTES (10*3/UL) IN BLOOD BY CALCUATION 0.70 10*3/uL Normal 0.10-1.00 [facility] Comment on above: Performed By: #### L [id number] ####[facility] ([facility])[address] [place] [address] MONOCYTES/100 LEUKOCYTES IN BLOOD BY AUTOMATED COUNT 5.5 % Normal 5.0-12.0 [facility] Comment on above: Performed By: #### L [id number] ####[facility] ([facility])[address] [place] [address] NEUTROPHILS (10*3/UL) IN BLOOD BY CALCULATION 11.3 10*3/uL High 1.6-7.6 [facility] Comment on above: Performed By: #### L [id number] ####[facility] ([facility])[address] [place] [address] NEUTROPHILS/100 LEUKOCYTES IN BLOOD BY AUTOMATED COUNT 88.1 % High 40.0-72.0 [facility] Comment on above: Performed By: #### L [id number] ####[facility] ([facility])[address] [place] [address] MYOGLOBIN, SERUMon 3 MYOGLOBIN (NG/ML) IN SER/PLAS 1832 ng/mL High 0-90 [facility] Comment on above: Result Comment: A DO UBLING OF VALUES FROM SERIAL BLOOD COLLECTIONS (1 - 2 HOURS APART) IS MORE INDICATIVE OF A M.I. THAN THE ABSOLUTE VALUE. Performed By: #### L [id number] ####[facility] ([facility])[address] [place] [address] PHOSPHORUSon 04-23-2023 Magnesium [Mass/Vol] 3.1 mg/dL Normal 2.5-5.0 [facility] Comment on above: Performed By: #### L [id number] ####[facility] ([facility])[address] [place] [address] POCT GLUCOSE METER UNSOLICIT ED RESULTSon 04-23-2023 Glucose [Mass/Vol] 267 mg/dL High 70-105 [facility] Comment on above: Order Comment: Waive d Testing in the ED is performed under the ED CLIA certificate #[id number]. Result Comment: than [email or web address] Performed By: #### L [id number] ####[facility] (BEAKER)[address] [place] [address] Glucose [Mass/Vol] 138 mg/dL High 70-105 [facility] Comment on above: Order Comment: Waive d Testing in the ED is performed under the ED CLIA certificate #[id number]. Result Comment: nhay man Performed By: #### L [id number] ####[facility] ([facility])[address] [place] [address] Glucose [Mass/Vol] 92 mg/dL Normal 70-105 [facility] Comment on above: Order Comment: Waive d Testing in the ED is performed under the ED CLIA certificate #[id number]. Result Comment: nhay man Performed By: #### L [id number] ####[facility] ([facility])[address] [place] [address] Glucose [Mass/Vol] 101 mg/dL Normal 70-105 [facility] Comment on above: Order Comment: Waive d Testing in the ED is performed under the ED CLIA certificate #[id number]. Result Comment: [email or web address] Performed By: #### L [id number] ####[facility] ([facility])[address] [place] [address] Glucose [Mass/Vol] 91 mg/dL Normal 70-105 [facility] Comment on above: Order Comment: Waive d Testing in the ED is performed under the ED CLIA certificate #[id number]. Result Comment: [email or web address] Performed By: #### L [id number] ####[facility] (BEAKER)[address] [place] [address] Glucose [Mass/Vol] 114 mg/dL High 70-105 [facility] Comment on above: Order Comment: Waive d Testing in the ED is performed under the ED CLIA certificate #[id number]. Result Comment: [email or web address] Performed By: #### L [id number] ####[facility] (BEAKER)[address] [place] [address] Glucose [Mass/Vol] 123 mg/dL High 70-105 [facility] Comment on above: Order Comment: Waive d Testing in the ED is performed under the ED CLIA certificate #[id number]. Result Comment: [email or web address] Performed By: #### L [id number] ####[facility] ([facility])[address] [place] [address] Glucose [Mass/Vol] 142 mg/dL High 70-105 [facility] Comment on above: Order Comment: Waive d Testing in the ED is performed under the ED CLIA certificate #[id number]. Result Comment: [email or web address] Performed By: #### L [id number] ####[facility] ([facility])[address] [place] [address] Glucose [Mass/Vol] 152 mg/dL High 70-105 [facility] Comment on above: Order Comment: Waive d Testing in the ED is performed under the ED CLIA certificate #[id number]. Result Comment: ahoo [email or web address] Performed By: #### L [id number] ####[facility] ([facility])[address] [place] [address] Glucose [Mass/Vol] 167 mg/dL High 70-105 [facility] Comment on above: Order Comment: Waive d Testing in the ED is performed under the ED CLIA certificate #[id number]. Result Comment: [email or web address] Performed By: #### L [id number] ####[facility] ([facility] [place] [address] POTASSIUM, WHOLE BLOODon Potassium [Moles/Vol] 4.3 mmol/L Normal 3.5-5.1 [facility] Comment on above: Performed By: #### P OTASSIUM, WHOLE BLOOD ####[facility] RESPIRATORY [id number] [place] [address] [place] Potassium [Moles/Vol] 4.1 mmol/L Normal 3.5-5.1 [facility] Comment on above: Performed By: #### P OTASSIUM, WHOLE BLOOD ####[facility] RESPIRATORY [id number] [place] [address] [facility] Potassium [Moles/Vol] 4.3 mmol/L Normal 3.5-5.1 [facility] Comment on above: Performed By: #### P OTASSIUM, WHOLE BLOOD ####[facility] RESPIRATORY [id number] [place] [address] [facility] PROTIME-INRon 04-23-2023 INR IN PPP BY COAGULATION ASSAY 1.98 High 0.90-1.10 [facility] Comment on above: Result Comment: ACCC P [...] CHEST 1995;108:[id number]. Performed By: #### L [id number] ####[facility] (BEAKER)[address] [place] [address] PROTHROMBIN TIME (PT) IN PPP BY COAGULATION ASSAY 22.6 Seconds High 12.3-14.8 [facility] Comment on above: Performed By: #### L [id number] ####[facility] (BEAKER)[address] [place] [address] INR IN PPP BY COAGULATION ASSAY 1.47 High 0.90-1.10 [facility] Comment on above: Result Comment: ACCC P [...] CHEST 1995;108:[id number]. Performed By: #### L [id number] ####[facility] (BEAKER)[address] , [place] [address] PROTHROMBIN TIME (PT) IN PPP BY COAGULATION ASSAY 17.9 Seconds High 12.3-14.8 [facility] Comment on above: Performed By: #### L [id number] ####[facility] (BEAKER)[address] [place] [address] SODIUM, WHOLE BLOODon 2022 SODIUM, WHOLE BLOOD 141 Normal 136-145 [facility] Comment on above: Performed By: #### S ODIUM, WHOLE BLOOD ####[facility] [place]ORY [id number] , [place] [address] [facility] SODIUM, WHOLE BLOOD 143 Normal 136-145 [facility] Comment on above: Performed By: #### S ODIUM, WHOLE BLOOD ####[facility] RESPIRATORY [id number] , [place] [address] [place] SODIUM, WHOLE BLOOD 144 Normal 136-145 [facility] Comment on above: Performed By: #### S ODIUM, WHOLE BLOOD ####[facility] RESPIRATORY [id number] [place] [address] [place] TROPONIN Ion 04-23-2023 Troponin I.cardiac [Mass/Vol] 22.65 ng/mL Critically high 0.00-0.04 [facility] Comment on above: Result Comment: M-TR OPONIN INITIAL CRITICAL HIGH; RESPUN AND RETESTED Performed By: #### L [id number] ####[facility] ([employer])[address] [place] [address] ANESon 04-22-2023 ANES Normal [facility] APTTon 04-22-2023 ACTIVATED PARTIAL THROMBOPLASTIN TIME IN PPP BY COAGULATION ASSAY 43.4 Seconds High 25.0-35.0 [facility] Comment on above: Result Comment: Clin ical significance of the APTT is questionable in the presence of heparin. Performed By: #### L [id number] ####[facility] ([employer])[address] [place] [address] ACTIVATED PARTIAL THROMBOPLASTIN TIME IN PPP BY COAGULATION ASSAY 36.9 Seconds High 25.0-35.0 [facility] Comment on above: Result Comment: Clin ical significance of the APTT is questionable in the presence of heparin. Performed By: #### L [id number] ####[facility] ([employer])[address] [place] [address] ACTIVATED PARTIAL THROMBOPLASTIN TIME IN PPP BY COAGULATION ASSAY 40.3 Seconds High 25.0-35.0 [facility] Comment on above: Order Comment: Pre-o p diagnosis:NSTEMI (non-ST elevated myocardial infarction) (CMS/HCC) [I21.4]Acute non-ST segment elevation myocardial infarction (CMS/HCC) [I21.4]Coronary artery disease, unspecified vessel or lesion type, unspecified whether angina present, unspecified whether [place] or 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] Result Comment: Clin ical significance of the APTT is questionable in the presence of heparin. Performed By: #### L [id number] ####[facility] ([employer])[address] [place] [address] BASIC METABOLIC PANELon 11-0 Anion gap [Moles/Vol] 9 mmol/L Normal 7-20 [facility] Comment on above: Performed By: #### L [id number] ####[facility] (BEAKER)[address] [place] [address] Calcium [Mass/Vol] 7.9 mg/dL Low 8.6-10.3 [facility] Comment on above: Performed By: #### L [id number] ####[facility] ([facility])[address] [address] Chloride [Moles/Vol] 114 mmol/L High 98-107 [facility] Comment on above: Performed By: #### L [id number] ####[facility] ([facility])[address] [place] [address] CO2 [Moles/Vol] 25 mmol/L Normal 21-31 [facility] Comment on above: Performed By: #### L [id number] ####[facility] ([facility])[address] [place] [address] Creatinine [Mass/Vol] 0.86 mg/dL Normal 0.70-1.30 [facility] Comment on above: Performed By: #### L [id number] ####[facility] ([facility])[address] [place] [address] GLOMERULAR FILTRATION RATE ML/MIN/1.73 SQ M.PREDICTED 93.7 mL/min/1.73m*2 Normal >60.0 [facility] Comment on above: Result Comment: [facility]???s estimated glomerular filtration rate (eGFR) will no [...] of individuals. Performed By: #### L [id number] ####[facility] [place] [address] Glucose [Mass/Vol] 162 mg/dL High 70-100 [facility] Comment on above: Performed By: #### L [id number] ####[facility] ([facility])[address] [place] [address] Potassium [Moles/Vol] 4.2 mmol/L Normal 3.5-5.1 [facility] Comment on above: Performed By: #### L [id number] ####[facility] ([facility])[address] [place] [address] Sodium [Moles/Vol] 144 mmol/L Normal 136-145 [facility] Comment on above: Performed By: #### L [id number] ####[facility] ([facility])[address] [place] [address] Urea nitrogen [Mass/Vol] 19 mg/dL Normal 7-25 [facility] Comment on above: Performed By: #### L [id number] ####[facility] ([facility])[address] [place] [address] UREA NITROGEN/CREATININ E (MASS RATIO) IN SER/PLAS 22.1 Normal [facility] Comment on above: Performed By: #### L [id number] ####[facility] ([facility])[address] [place] [address] Anion gap [Moles/Vol] 7 mmol/L Normal 7-20 [facility] Comment on above: Performed By: #### L [id number] ####[facility] ([facility])[address] [place] [address] Calcium [Mass/Vol] 8.2 mg/dL Low 8.6-10.3 [facility] Comment on above: Performed By: #### L [id number] ####[facility] [place] [address] Chloride [Moles/Vol] 114 mmol/L High 98-107 [facility] Comment on above: Performed By: #### L [id number] ####[facility] [place] [address] CO2 [Moles/Vol] 29 mmol/L Normal 21-31 [facility] Comment on above: Performed By: #### L [id number] ####[facility] [place] [address] Creatinine [Mass/Vol] 0.77 mg/dL Normal 0.70-1.30 [facility] Comment on above: Performed By: #### L [id number] ####[facility] ([facility])[address] [place] [address] GLOMERULAR FILTRATION RATE ML/MIN/1.73 SQ M.PREDICTED 96.9 mL/min/1.73m*2 Normal >60.0 [facility] Comment on above: Result Comment: [facility]???s estimated glomerular filtration rate (eGFR) will no [...] of individuals. Performed By: #### L [id number] ####[facility] [place] [address] Glucose [Mass/Vol] 142 mg/dL High 70-100 [facility] Comment on above: Performed By: #### L [id number] ####[facility] [place] [address] Potassium [Moles/Vol] 3.7 mmol/L Normal 3.5-5.1 [facility] Comment on above: Performed By: #### L [id number] ####[facility] [place] [address] Sodium [Moles/Vol] 146 mmol/L High 136-145 [facility] Comment on above: Performed By: #### L [id number] ####[facility] (BEAKER)[address] [place] [address] Urea nitrogen [Mass/Vol] 18 mg/dL Normal 7-25 [facility] Comment on above: Performed By: #### L [id number] ####[facility] (BEAKER)[address] [place] [address] UREA NITROGEN/CREATININ E (MASS RATIO) IN SER/PLAS 23.4 Normal [facility] Comment on above: Performed By: #### L [id number] ####[facility] (BEAKER)[address] [place] [address] Anion gap [Moles/Vol] 7 mmol/L Normal 7-20 [facility] Comment on above: Order Comment: Pre-o p diagnosis:NSTEMI (non-ST elevated myocardial infarction) (CMS/HCC) [I21.4]Acute non-ST segment elevation myocardial infarction (CMS/HCC) [I21.4]Coronary artery disease, unspecified vessel or lesion type, unspecified whether angina present, unspecified whether [place] or 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] Performed By: #### L [id number] ####[facility] ([facility])[address] [place] [address] Calcium [Mass/Vol] 8.5 mg/dL Low 8.6-10.3 [facility] Comment on above: Order Comment: Pre-o p diagnosis:NSTEMI (non-ST elevated myocardial infarction) (CMS/HCC) [I21.4]Acute non-ST segment elevation myocardial infarction (CMS/HCC) [I21.4]Coronary artery disease, unspecified vessel or lesion type, unspecified whether angina present, unspecified whether [place] [place] or 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] Performed By: #### L [id number] ####[facility] (BEAKER)[address] [place] [address] Chloride [Moles/Vol] 116 mmol/L High 98-107 [facility] Comment on above: Order Comment: Pre-o p diagnosis:NSTEMI (non-ST elevated myocardial infarction) (CMS/HCC) [I21.4]Acute non-ST segment elevation myocardial infarction (CMS/HCC) [I21.4]Coronary artery disease, unspecified vessel or lesion type, unspecified whether angina present, unspecified whether 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] Performed By: #### L [id number] ####[facility] (BEAKER)[address] [employer] [place] [address] CO2 [Moles/Vol] 25 mmol/L Normal 21-31 [facility] Comment on above: Order Comment: Pre-o p diagnosis:NSTEMI (non-ST elevated myocardial infarction) (CMS/HCC) [I21.4]Acute non-ST segment elevation myocardial infarction (CMS/HCC) [I21.4]Coronary artery disease, unspecified vessel or lesion type, unspecified whether angina present, unspecified whether 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] Performed By: #### L [id number] ####[facility] (BEAKER)[address] [place] [address] Creatinine [Mass/Vol] 0.82 mg/dL Normal 0.70-1.30 [facility] Comment on above: Order Comment: Pre-o p diagnosis:NSTEMI (non-ST elevated myocardial infarction) (CMS/HCC) [I21.4]Acute non-ST segment elevation myocardial infarction (CMS/HCC) [I21.4]Coronary artery disease, unspecified vessel or lesion type, unspecified whether angina present, unspecified whether 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] Performed By: #### L [id number] ####[facility] (BEAKER)[address] [place] [address] GLOMERULAR FILTRATION RATE ML/MIN/1.73 SQ M.PREDICTED 95.1 mL/min/1.73m*2 Normal >60.0 [facility] Comment on above: Order Comment: Pre-o p diagnosis:NSTEMI (non-ST elevated myocardial infarction) (CMS/HCC) [I21.4]Acute non-ST segment elevation myocardial infarction (CMS/HCC) [I21.4]Coronary artery disease, unspecified vessel or lesion type, unspecified whether angina present, unspecified whether 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] Result Comment: [facility]???s estimated glomerular filtration rate (eGFR) will no [...] of individuals. Performed By: #### L [id number] ####[facility] (BEAKER)[address] [place] [address] Glucose [Mass/Vol] 198 mg/dL High 70-100 [facility] Comment on above: Order Comment: Pre-o p diagnosis:NSTEMI (non-ST elevated myocardial infarction) (CMS/HCC) [I21.4]Acute non-ST segment elevation myocardial infarction (CMS/HCC) [I21.4]Coronary artery disease, unspecified vessel or lesion type, unspecified whether angina present, unspecified whether 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] Performed By: #### L [id number] ####[facility] (BEAKER)[address] [place] [address] Potassium [Moles/Vol] 3.1 mmol/L Low 3.5-5.1 [facility] Comment on above: Order Comment: Pre-o p diagnosis:NSTEMI (non-ST elevated myocardial infarction) (CMS/HCC) [I21.4]Acute non-ST segment elevation myocardial infarction (CMS/HCC) [I21.4]Coronary artery disease, unspecified vessel or lesion type, unspecified whether angina present, unspecified whether 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] Performed By: #### L [id number] ####[facility] (BEAKER)[address] [place] [address] Sodium [Moles/Vol] 145 mmol/L Normal 136-145 [facility] Comment on above: Order Comment: Pre-o p diagnosis:NSTEMI (non-ST elevated myocardial infarction) (CMS/HCC) [I21.4]Acute non-ST segment elevation myocardial infarction (CMS/HCC) [I21.4]Coronary artery disease, unspecified vessel or lesion type, unspecified whether angina present, unspecified whether 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] Performed By: #### L [id number] ####[facility] (BEAKER)[address] [place] [address] Urea nitrogen [Mass/Vol] 18 mg/dL Normal 7-25 [facility] Comment on above: Order Comment: Pre-o p diagnosis:NSTEMI (non-ST elevated myocardial infarction) (CMS/HCC) [I21.4]Acute non-ST segment elevation myocardial infarction (CMS/HCC) [I21.4]Coronary artery disease, unspecified vessel or lesion type, unspecified whether angina present, unspecified whether 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] Performed By: #### L [id number] ####[facility] ([employer])[address] [place] [address] UREA NITROGEN/CREATININ E (MASS RATIO) IN SER/PLAS 22.0 Normal [facility] Comment on above: Order Comment: Pre-o p diagnosis:NSTEMI (non-ST elevated myocardial infarction) (CMS/HCC) [I21.4]Acute non-ST segment elevation myocardial infarction (CMS/HCC) [I21.4]Coronary artery disease, unspecified vessel or lesion type, unspecified whether angina present, unspecified whether 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] Performed By: #### L [id number] ####[facility] (Work Market)[address] [place] [address] CBCon 04-22-2023 Erythrocyte distribution width (RBC) [Ratio] 13.1 % Normal 11.5-15.0 [facility] Comment on above: Performed By: #### L [id number] ####[facility] ([employer])[address] [place] [address] ERYTHROCYTE MEAN CORPUSCULAR HEMOGLOBIN CONCENTRATION (G/DL) BY AUTOMATED 34.7 g/dL Normal 32.0-35.0 [facility] Comment on above: Performed By: #### L [id number] ####[facility] (BEAKER)[address] [place] [address] Hematocrit (Bld) [Volume fraction] 32.6 % Low 39.0-55.0 [facility] Comment on above: Performed By: #### L [id number] ####[facility] (BEAKER)[address] [address] Hemoglobin (Bld) [Mass/Vol] 11.3 g/dL Low 13.0-17.0 [facility] Comment on above: Performed By: #### L [id number] ####[facility] (BEAKER)[address], [place] [address] MCH (RBC) [Entitic mass] 31.1 pg Normal 27.0-33.0 [facility] Comment on above: Performed By: #### L [id number] ####[facility] [place] [address] MCV (RBC) [Entitic vol] 89.8 fL Normal 82.0-98.0 [facility] Comment on above: Performed By: #### L [id number] ####[facility] ([facility] [place] [address] PLATELETS (10*3/UL) IN BLOOD AUTOMATED COUNT 107 10*3/uL Low 150-400 [facility] Comment on above: Performed By: #### L [id number] ####[facility] (BEAKER)[address] [place] [address] RBC (Bld) [#/Vol] 3.63 10*6/uL Low 4.20-5.70 [facility] Comment on above: Performed By: #### L [id number] ####[facility] (BEAKER)[address] [place] [address] WBC (Bld) [#/Vol] 18.54 10*3/uL High 4.00-10.60 [facility] Comment on above: Performed By: #### L [id number] ####[facility] (BEAKER)[address] [employer] [place] [address] Erythrocyte distribution width (RBC) [Ratio] 13.0 % Normal 11.5-15.0 [facility] Comment on above: Order Comment: Pre-o p diagnosis:NSTEMI (non-ST elevated myocardial infarction) (CMS/HCC) [I21.4]Acute non-ST segment elevation myocardial infarction (CMS/HCC) [I21.4]Coronary artery disease, unspecified vessel or lesion type, unspecified whether angina present, unspecified whether 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] Performed By: #### L [id number] ####[facility] ([employer])[address] [employer] [place] [address] ERYTHROCYTE MEAN CORPUSCULAR HEMOGLOBIN CONCENTRATION (G/DL) BY AUTOMATED 34.5 g/dL Normal 32.0-35.0 [facility] Comment on above: Order Comment: Pre-o p diagnosis:NSTEMI (non-ST elevated myocardial infarction) (CMS/HCC) [I21.4]Acute non-ST segment elevation myocardial infarction (CMS/HCC) [I21.4]Coronary artery disease, unspecified vessel or lesion type, unspecified whether angina present, unspecified whether 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] Performed By: #### L [id number] ####[facility] (Work Market)[address] [employer] [place] [address] Hematocrit (Bld) [Volume fraction] 26.7 % Low 39.0-55.0 [facility] Comment on above: Order Comment: Pre-o p diagnosis:NSTEMI (non-ST elevated myocardial infarction) (CMS/HCC) [I21.4]Acute non-ST segment elevation myocardial infarction (CMS/HCC) [I21.4]Coronary artery disease, unspecified vessel or lesion type, unspecified whether angina present, unspecified whether 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] Performed By: #### L [id number] ####[facility] (Work Market)[address] [place] [address] Hemoglobin (Bld) [Mass/Vol] 9.2 g/dL Low 13.0-17.0 [facility] Comment on above: Order Comment: Pre-o p diagnosis:NSTEMI (non-ST elevated myocardial infarction) (CMS/HCC) [I21.4]Acute non-ST segment elevation myocardial infarction (CMS/HCC) [I21.4]Coronary artery disease, unspecified vessel or lesion type, unspecified whether angina present, unspecified whether [place] 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] Performed By: #### L [id number] ####[facility] (Work Market)[address] [place] [address] MCH (RBC) [Entitic mass] 31.4 pg Normal 27.0-33.0 [facility] Comment on above: Order Comment: Pre-o p diagnosis:NSTEMI (non-ST elevated myocardial infarction) (CMS/HCC) [I21.4]Acute non-ST segment elevation myocardial infarction (CMS/HCC) [I21.4]Coronary artery disease, unspecified vessel or lesion type, unspecified whether angina present, unspecified whether [place] 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] Performed By: #### L [id number] ####[facility] (BE[employer]el[employer]s)[address] [place] [address] MCV (RBC) [Entitic vol] 91.1 fL Normal 82.0-98.0 [facility] Comment on above: Order Comment: Pre-o p diagnosis:NSTEMI (non-ST elevated myocardial infarction) (CMS/HCC) [I21.4]Acute non-ST segment elevation myocardial infarction (CMS/HCC) [I21.4]Coronary artery disease, unspecified vessel or lesion type, unspecified whether angina present, unspecified whether 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] Performed By: #### L [id number] ####[facility] (BEAeluros)[address] [place] [address] PLATELETS (10*3/UL) IN BLOOD AUTOMATED COUNT 134 10*3/uL Low 150-400 [facility] Comment on above: Order Comment: Pre-o p diagnosis:NSTEMI (non-ST elevated myocardial infarction) (CMS/HCC) [I21.4]Acute non-ST segment elevation myocardial infarction (CMS/HCC) [I21.4]Coronary artery disease, unspecified vessel or lesion type, unspecified whether angina present, unspecified whether [place] 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] Performed By: #### L [id number] ####[facility] ([facility] [place] [address] RBC (Bld) [#/Vol] 2.93 10*6/uL Low 4.20-5.70 [facility] Comment on above: Order Comment: Pre-o p diagnosis:NSTEMI (non-ST elevated myocardial infarction) (CMS/HCC) [I21.4]Acute non-ST segment elevation myocardial infarction (CMS/HCC) [I21.4]Coronary artery disease, unspecified vessel or lesion type, unspecified whether angina present, unspecified whether [place] 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] Performed By: #### L [id number] ####[facility] ([facility])[address] [place] [address] WBC (Bld) [#/Vol] 21.16 10*3/uL High 4.00-10.60 [facility] Comment on above: Order Comment: Pre-o p diagnosis:NSTEMI (non-ST elevated myocardial infarction) (CMS/HCC) [I21.4]Acute non-ST segment elevation myocardial infarction (CMS/HCC) [I21.4]Coronary artery disease, unspecified vessel or lesion type, unspecified whether angina present, unspecified whether 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] Performed By: #### L [id number] ####[facility] (Work [employer])[address] [place] [address] CBC WITH AUTO DIFFERENTIALon 04-22-2023 Basophils (Bld) [#/Vol] 0.01 10*3/uL Normal 0.00-0.20 [facility] Comment on above: Performed By: #### L [id number] ####[facility] ([employer])[address] [place] [address] Basophils/100 WBC (Bld) 0.1 % Normal 0.0-1.0 [facility] Comment on above: Performed By: #### L [id number] ####[facility] (BEAKER)[address] [place] [address] Eosinophils (Bld) [#/Vol] 0.00 10*3/uL Normal 0.00-0.50 [facility] Comment on above: Performed By: #### L [id number] ####[facility] (BEAKER)[address] [place] [address] Eosinophils/100 WBC (Bld) 0.0 % Normal 0.0-6.0 [facility] Comment on above: Performed By: #### L [id number] ####[facility] ([facility] [place] [address] Erythrocyte distribution width (RBC) [Ratio] 13.2 % Normal 11.5-15.0 [facility] Comment on above: Performed By: #### L [id number] ####[facility] ([facility])[address] [place] [address] ERYTHROCYTE MEAN CORPUSCULAR HEMOGLOBIN CONCENTRATION (G/DL) BY AUTOMATED 35.6 g/dL High 32.0-35.0 [facility] Comment on above: Performed By: #### L [id number] ####[facility] ([facility])[address] [place] [address] Hematocrit (Bld) [Volume fraction] 28.4 % Low 39.0-55.0 [facility] Comment on above: Performed By: #### L [id number] ####[facility] (BEAKER)[address] [place] [address] Hemoglobin (Bld) [Mass/Vol] 10.1 g/dL Low 13.0-17.0 [facility] Comment on above: Performed By: #### L [id number] ####[facility] (BEAKER)[address] [place] [address] Immature granulocytes (Bld) [#/Vol] 0.10 10*3/uL Normal 0.00-0.20 [facility] Comment on above: Performed By: #### L [id number] ####[facility] (BEAKER)[address] [place] [address] Immature granulocytes/100 WBC (Bld) 0.7 % Normal 0.0-1.0 [facility] Comment on above: Performed By: #### L [id number] ####[facility] (BEAKER)[address] [place] [address] IMMATURE PLATELET FRACTION % 2.3 % Normal 0.8-6.3 [facility] Comment on above: Performed By: #### L [id number] ####[facility] ([facility] [place] [address] Lymphocytes (Bld) [#/Vol] 0.95 10*3/uL Low 1.20-4.00 [facility] Comment on above: Performed By: #### L [id number] ####[facility] (BEAKER)[address] [place] [address] Lymphocytes/100 WBC (Bld) 6.4 % Low 20.0-45.0 [facility] Comment on above: Performed By: #### L [id number] ####[facility] (BEAKER)[address] [place] [address] MCH (RBC) [Entitic mass] 31.7 pg Normal 27.0-33.0 [facility] Comment on above: Performed By: #### L [id number] ####[facility] (BEAKER)[address] [place] [address] MCV (RBC) [Entitic vol] 89.0 fL Normal 82.0-98.0 [facility] Comment on above: Performed By: #### L [id number] ####[facility] (BEAKER)[address] [place] [address] Monocytes (Bld) [#/Vol] 1.37 10*3/uL High 0.10-1.00 [facility] Comment on above: Performed By: #### L [id number] ####[facility] (BEAKER)[address] [place] [address] Monocytes/100 WBC (Bld) 9.3 % Normal 5.0-12.0 [facility] Comment on above: Performed By: #### L [id number] ####[facility] ([facility])[address] [address] Neutrophils (Bld) [#/Vol] 12.36 10*3/uL High 1.60-7.60 [facility] Comment on above: Performed By: #### L [id number] ####[facility] ([facility])[address] [address] Neutrophils/100 WBC (Bld) 83.5 % High 40.0-72.0 [facility] Comment on above: Performed By: #### L [id number] ####[facility] ([facility])[address] [address] NRBC (PER 100 WBCS) BY AUTOMATED COUNT 0.0 % Normal 0 [facility] Comment on above: Performed By: #### L [id number] ####[facility] ([facility])[address] [address] PLATELETS (10*3/UL) IN BLOOD AUTOMATED COUNT 108 10*3/uL Low 150-400 [facility] Comment on above: Performed By: #### L [id number] ####[facility] ([facility])[address], [place] [address] RBC (Bld) [#/Vol] 3.19 10*6/uL Low 4.20-5.70 [facility] Comment on above: Performed By: #### L [id number] ####[facility] ([facility])[address] [address] WBC (Bld) [#/Vol] 14.79 10*3/uL High 4.00-10.60 [facility] Comment on above: Performed By: #### L [id number] ####[facility] ([facility])[address] [address] CO-OXIMETRYon 04-22-2023 CARBOXYHEMOGLOBIN/ HEMOGLOBIN TOTAL % IN BLOOD 1.5 % Normal [facility] Comment on above: Performed By: #### L [id number] ####[facility] RESPIRATORY [id number] [place] [address] [place] Hemoglobin (Bld) [Mass/Vol] 12.7 g/dL Normal [facility] Comment on above: Performed By: #### L [id number] ####[facility] RESPIRATORY [id number] [place] [address] [place] METHEMOGLOBIN/100 IN BLOOD 0.1 % Normal 0.0-1.5 [facility] Comment on above: Performed By: #### L [id number] ####[facility] RESPIRATORY [id number] [place] [address] [place] Oxygen saturation in Blood 71.7 % Normal [facility] Comment on above: Performed By: #### L [id number] ####[facility] RESPIRATORY [id number] [place] [address] [place] OXYGENATED HEMOGLOBIN IN BLOOD 70.6 % Normal [facility] Comment on above: Performed By: #### L [id number] ####[facility] RESPIRATORY [id number] [place] [address] [place] CONSULTon 04-22-2023 CONSULT Normal [facility] FIBRINOGENon 04-22-2023 Magnesium [Mass/Vol] 162 mg/dL Normal 150-425 [facility] Comment on above: Order Comment: Pre-o p diagnosis:NSTEMI (non-ST elevated myocardial infarction) (CMS/HCC) [I21.4]Acute non-ST segment elevation myocardial infarction (CMS/HCC) [I21.4]Coronary artery disease, unspecified vessel or lesion type, unspecified whether angina present, unspecified whether [place] 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] Performed By: #### L [id number] ####[facility] (BEAKER)[address] [place] [address] HEPATIC FUNCTION PANELon Albumin [Mass/Vol] 2.5 g/dL Low 3.5-5.7 [facility] Comment on above: Performed By: #### L [id number] ####[facility] (BEAKER)[address] [place] [address] ALP [Catalytic activity/Vol] 54 U/L Normal 34-104 [facility] Comment on above: Performed By: #### L [id number] ####[facility] ([facility])[address] [place] [address] ALT [Catalytic activity/Vol] 10 U/L Normal 7-52 [facility] Comment on above: Performed By: #### L [id number] ####[facility] ([facility])[address] [place] [address] AST [Catalytic activity/Vol] 34 U/L Normal 13-39 [facility] Comment on above: Performed By: #### L [id number] ####[facility] ([facility])[address] [place] [address] Bilirubin [Mass/Vol] 0.6 mg/dL Normal 0.3-1.0 [facility] Comment on above: Performed By: #### L [id number] ####[facility] ([facility])[address] [place] [address] Magnesium [Mass/Vol] 0.2 mg/dL Normal 0-0.2 [facility] Comment on above: Performed By: #### L [id number] ####[facility] ([facility])[address] [place] [address] Protein [Mass/Vol] 3.7 g/dL Low 6.0-8.3 [facility] Comment on above: Performed By: #### L [id number] ####[facility] ([facility])[address] [place] [address] HISTOLOGY - TISSUE EXAMon LAB AP CASE REPORT Normal [facility] Comment on above: Order Comment: Pre-o p diagnosis:NSTEMI (non-ST elevated myocardial infarction) (CMS/HCC) [I21.4]Acute non-ST segment elevation myocardial infarction (CMS/HCC) [I21.4]Coronary artery disease, unspecified vessel or lesion type, unspecified whether angina present, unspecified whether [place] 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] Result Comment: Surg ical Pathology Case: [id number] Provider: Chaitanya Ames MD Collected: 04/22/2023 [id number] Location: [facility] Main Operating Room Received: 04/22/2023 1923Pathologist: RAHEEM Wilsonpecimens: A) - Lymph Node, ANTERIOR MEDIASTINAL LYMPH NODE B) - Lymph Node, RIGHT INTERNAL MAMMARY LYMPH NODE FOR HISTOLOGY Performed By: #### L [id number] ####[facility] ([facility] [place] [address] LAB AP CLINICAL INFORMATION Normal [facility] Comment on above: Order Comment: Pre-o p diagnosis:NSTEMI (non-ST elevated myocardial infarction) (CMS/HCC) [I21.4]Acute non-ST segment elevation myocardial infarction (CMS/HCC) [I21.4]Coronary artery disease, unspecified vessel or lesion type, unspecified whether angina present, unspecified whether [place] 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] Result Comment: Post -Op [id number] - NSTEMI (non-ST elevated myocardial infarction) (CMS/HCC) [ICD-10-CM]I21.4 - Acute non-ST segment elevation myocardial infarction (CMS/HCC) [ICD-10-CM]I25.10 - Coronary artery disease, unspecified vessel or lesion type, unspecified whether angina present, unspecified whether [place] transplanted heart [ICD-10-CM] Performed By: #### L [id number] ####[facility] (BEAKER)[address] [place] [address] LAB AP GROSS DESCRIPTION A. Lymph Node. Normal [facility] Comment on above: Order Comment: Pre-o p diagnosis:NSTEMI (non-ST elevated myocardial infarction) (CMS/HCC) [I21.4]Acute non-ST segment elevation myocardial infarction (CMS/HCC) [I21.4]Coronary artery disease, unspecified vessel or lesion type, unspecified whether angina present, unspecified whether [place] 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] Result Comment: Rece [...] submitted in a single cassette.Jenny Guajardo, [employer]ologists[employer] Office Manager Performed By: #### L [id number] ####[facility] (BEAKER)[address] , [place] [address] LAB AP MICROSCOPIC DESCRIPTION Microscopic examination performed. [facility] Comment on above: Order Comment: Pre-o p diagnosis:NSTEMI (non-ST elevated myocardial infarction) (CMS/HCC) [I21.4]Acute non-ST segment elevation myocardial infarction (CMS/HCC) [I21.4]Coronary artery disease, unspecified vessel or lesion type, unspecified whether angina present, unspecified whether [place] 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] Performed By: #### L [id number] ####[facility] (BEAKER)[address] , [place] [address] LAB AP REPORT FINAL DIAGNOSIS NARRATIVE [facility] Comment on above: Order Comment: Pre-o p diagnosis:NSTEMI (non-ST elevated myocardial infarction) (CMS/HCC) [I21.4]Acute non-ST segment elevation myocardial infarction (CMS/HCC) [I21.4]Coronary artery disease, unspecified vessel or lesion type, unspecified whether angina present, unspecified whether [place] 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] Result Comment: A. L ymph node, anterior mediastinal, regional resection: - Two benign lymph nodes with sinus histiocytosis and anthracosis (0/2).B. Lymph node, right internal mammary, regional resection: - One benign lymph node with sinus histiocytosis and anthracosis (0/1). - Minute fragment of skeletal muscle and fibroadipose tissue with focal chronic inflammation. Performed By: #### L [id number] ####[facility] ([facility] [place] [address] HPon 04-22-2023 HP H&P reviewed. The laurie putnam was examined and there are no changes to the H&P. Normal [facility] LACTIC ACID WITH 4 HOUR REFL EXon 04-22-2023 LACTATE (MMOL/L) IN SER/PLAS 2.3 mmol/L High 0.5-2.2 [facility] Comment on above: Order Comment: Pre-o p diagnosis:NSTEMI (non-ST elevated myocardial infarction) (CMS/HCC) [I21.4]Acute non-ST segment elevation myocardial infarction (CMS/HCC) [I21.4]Coronary artery disease, unspecified vessel or lesion type, unspecified whether angina present, unspecified whether [place] or 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] Performed By: #### L [id number] ####[facility] ([facility])[address] [place] [address] LACTIC ACID, PLASMAon 2022 LACTATE (MMOL/L) IN SER/PLAS 2.6 mmol/L Critically high 0.5-2.2 [facility] Comment on above: Result Comment: Prev ious result verified on 04/22/2023 1906 on specimen/case [id number] called with component Lactate for procedure Lactic acid, plasma with value 2.7 mmol/L. Performed By: #### L [id number] ####[facility] (BEAKER)[address] [place] [address] LACTATE (MMOL/L) IN SER/PLAS 2.7 mmol/L Critically high 0.5-2.2 [facility] Comment on above: Performed By: #### L [id number] ####[facility] (BEAKER)[address] [place] [address] MAGNESIUMon 04-22-2023 Magnesium [Mass/Vol] 2.1 mg/dL Normal 1.9-2.7 [facility] Comment on above: Performed By: #### L [id number] ####[facility] (BE[facility]ER)[address] [place] [address] Magnesium [Mass/Vol] 2.4 mg/dL Normal 1.9-2.7 [facility] Comment on above: Order Comment: Pre-o p diagnosis:NSTEMI (non-ST elevated myocardial infarction) (CMS/HCC) [I21.4]Acute non-ST segment elevation myocardial infarction (CMS/HCC) [I21.4]Coronary artery disease, unspecified vessel or lesion type, unspecified whether angina present, unspecified whether [place] or 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] Performed By: #### L [id number] ####[facility] ([facility] [place] [address] OPNOTEon 04-22-2023 OPNOTE Normal [facility] PHOSPHORUSon 04-22-2023 Magnesium [Mass/Vol] 3.6 mg/dL Normal 2.5-5.0 [facility] Comment on above: Performed By: #### L [id number] ####[facility] (BEAKER)[address] [place] [address] POCT ACTIVATED CLOTTING TIME UNSOLICITED RESULTSon 04-22-2023 POC ACTIVATED CLOTTING TIME 132 sec Normal 82-152 [facility] Comment on above: Performed By: #### L [id number] ####[facility] (BEAKER)[address] [place] [address] POC ACTIVATED CLOTTING TIME 341 sec High 82-152 [facility] Comment on above: Performed By: #### L [id number] ####[facility] (BEAKER)[address] [place] [address] POC ACTIVATED CLOTTING TIME 473 sec High 82-152 [facility] Comment on above: Performed By: #### L [id number] ####[facility] (BE[facility]ER)[address] [place] [address] POC ACTIVATED CLOTTING TIME 516 sec High 82-152 [facility] Comment on above: Performed By: #### L [id number] ####[facility] (BE[facility]ER)[address] [place] [address] POC ACTIVATED CLOTTING TIME 460 sec High 82-152 [facility] Comment on above: Performed By: #### L [id number] ####[facility] (BE[facility]ER)[address] [place] [address] POC ACTIVATED CLOTTING TIME 446 sec High 82-152 [facility] Comment on above: Performed By: #### L [id number] ####[facility] (BE[facility]ER)[address] [place] [address] POC ACTIVATED CLOTTING TIME 479 sec High 82-152 [facility] Comment on above: Performed By: #### L [id number] ####[facility] (BE[facility]ER)[address] [place] [address] POC ACTIVATED CLOTTING TIME 447 sec High 82-152 [facility] Comment on above: Performed By: #### L [id number] ####[facility] (BE[facility]ER)[address] [place] [address] POC ACTIVATED CLOTTING TIME 596 sec High 82-152 [facility] Comment on above: Performed By: #### L [id number] ####[facility] (BEAKER)[address] [place] [address] POC ACTIVATED CLOTTING TIME 602 sec High 82-152 [facility] Comment on above: Performed By: #### L [id number] ####[facility] (BEAKER)[address] [place] [address] POC ACTIVATED CLOTTING TIME 143 sec Normal 82-152 [facility] Comment on above: Performed By: #### L [id number] ####[facility] (BEAKER)[address] [place] [address] POCT GLUCOSE METER UNSOLICIT ED RESULTSon 04-22-2023 Glucose [Mass/Vol] 156 mg/dL High 70-105 [facility] Comment on above: Order Comment: Waive d Testing in the ED is performed under the ED CLIA certificate #[id number]. Result Comment: [email or web address] Performed By: #### L [id number] ####[facility] (BEAKER)[address] [place] [address] Glucose [Mass/Vol] 121 mg/dL High 70-105 [facility] Comment on above: Order Comment: Waive d Testing in the ED is performed under the ED CLIA certificate #[id number]. Result Comment: [email or web address] [email or web address] Performed By: #### L [id number] ####[facility] ([facility])[address] [place] [address] Glucose [Mass/Vol] 122 mg/dL High 70-105 [facility] Comment on above: Order Comment: Waive d Testing in the ED is performed under the ED CLIA certificate #[id number]. Result Comment: [email or web address] man Performed By: #### L [id number] ####[facility] ([facility])[address] [place] [address] Glucose [Mass/Vol] 137 mg/dL High 70-105 [facility] Comment on above: Order Comment: Waive d Testing in the ED is performed under the ED CLIA certificate #[id number]. Result Comment: [email or web address] Performed By: #### L [id number] ####[facility] ([facility])[address] [place] [address] Glucose [Mass/Vol] 107 mg/dL High 70-105 [facility] Comment on above: Order Comment: Waive d Testing in the ED is performed under the ED CLIA certificate #[id number]. Result Comment: [email or web address] [email or web address] Performed By: #### L [id number] ####[facility] ([facility])[address] [place] [address] POCT PERFUSION PANEL UNSOLIC ITED RESULTSon 04-22-2023 CO2 [Moles/Vol] 25.0 mmol/L Normal 21.0-29.[address] [facility] Comment on above: Performed By: #### L [id number] ####[facility] ([facility])[address] [place] [address] Glucose [Mass/Vol] 195 mg/dL High 70-105 [facility] Comment on above: Performed By: #### L [id number] ####[facility] (BEAKER)[address] [address] HCO3 (Bld) [Moles/Vol] 23.6 mmol/L Normal 23.0-28.0 [facility] Comment on above: Performed By: #### L [id number] ####[facility] [address] Hematocrit (Bld) [Volume fraction] 27 % Low 38-51 [facility] Comment on above: Performed By: #### L [id number] ####[facility] ([facility])[address] [address] Hemoglobin (Bld) [Mass/Vol] 9.2 g/dL Low 12.0-17.0 [facility] Comment on above: Performed By: #### L [id number] ####[facility] ([facility])[address] [address] POCT BASE EXCESS -3.0 mmol/L Low -2.0-3.0 [facility] Comment on above: Performed By: #### L [id number] ####[facility] ([facility])[address] [address] POCT IONIZED CALCIUM 1.35 mmol/L High 1.12-1.32 [facility] Comment on above: Performed By: #### L [id number] ####[facility] (BEAKER)[address] [address] POCT PCO2 47.6 mmHg Normal 41.0-51.0 [facility] Comment on above: Performed By: #### L [id number] ####[facility] (BEAKER)[address] [address] POCT PH 7.30 Low 7.31-7.41 [facility] Comment on above: Performed By: #### L [id number] ####[facility] (BEAKER)[address] [address] POCT PO2 355 mmHg High 80-105 [facility] Comment on above: Performed By: #### L [id number] ####[facility] (BEAKER)[address] [place] [address] POCT SO2 100 % High 95-98 [facility] Comment on above: Performed By: #### L [id number] ####[facility] (BEAKER)[address] [place] [address] Potassium [Moles/Vol] 3.2 mmol/L Low 3.5-4.9 [facility] Comment on above: Performed By: #### L [id number] ####[facility] (BEAKER)[address] [place] [address] Sodium [Moles/Vol] 146 mmol/L Normal 138.0-146.0 [facility] Comment on above: Performed By: #### L [id number] ####[facility] (BEAKER)[address] [place] [address] CO2 [Moles/Vol] 26.0 mmol/L Normal 21.0-29.[address] [facility] Comment on above: Performed By: #### L [id number] ####[facility] (BEAKER)[address] [place] [address] Glucose [Mass/Vol] 196 mg/dL High 70-105 [facility] Comment on above: Performed By: #### L [id number] ####[facility] (BEAKER)[address] [place] [address] HCO3 (Bld) [Moles/Vol] 24.2 mmol/L Normal 23.0-28.0 [facility] Comment on above: Performed By: #### L [id number] ####[facility] (BEAKER)[address] [place] [address] Hematocrit (Bld) [Volume fraction] 21 % Low 38-51 [facility] Comment on above: Performed By: #### L [id number] ####[facility] (BEAKER)[address] [place] [address] Hemoglobin (Bld) [Mass/Vol] 7.1 g/dL Low 12.0-17.0 [facility] Comment on above: Performed By: #### L [id number] ####[facility] (BEAKER)[address] [place] [address] POCT BASE EXCESS -3.0 mmol/L Low -2.0-3.0 [facility] Comment on above: Performed By: #### L [id number] ####[facility] (BEAKER)[address] [place] [address] POCT IONIZED CALCIUM 1.19 mmol/L Normal 1.12-1.32 [facility] Comment on above: Performed By: #### L [id number] ####[facility] (BEAKER)[address] [place] [address] POCT PCO2 52.4 mmHg High 41.0-51.0 [facility] Comment on above: Performed By: #### L [id number] ####[facility] (BEAKER)[address] [place] [address] POCT PH 7.27 Low 7.31-7.41 [facility] Comment on above: Performed By: #### L [id number] ####[facility] (BEAKER)[address] [place] [address] POCT PO2 488 mmHg High 80-105 [facility] Comment on above: Performed By: #### L [id number] ####[facility] (BEAKER)[address] [place] [address] POCT SO2 100 % High 95-98 [facility] Comment on above: Performed By: #### L [id number] ####[facility] (BEAKER)[address] [place] [address] Potassium [Moles/Vol] 3.7 mmol/L Normal 3.5-4.9 [facility] Comment on above: Performed By: #### L [id number] ####[facility] (BEAKER)[address] [place] [address] Sodium [Moles/Vol] 145 mmol/L Normal 138.0-146.0 [facility] Comment on above: Performed By: #### L [id number] ####[facility] (BEAKER)[address] [place] [address] CO2 [Moles/Vol] 24.0 mmol/L Normal 21.0-29.[address] [facility] Comment on above: Performed By: #### L [id number] ####[facility] (BEAKER)[address] [place] [address] Glucose [Mass/Vol] 177 mg/dL High 70-105 [facility] Comment on above: Performed By: #### L [id number] ####[facility] (BEAKER)[address] [place] [address] HCO3 (Bld) [Moles/Vol] 22.2 mmol/L Low 23.0-28.0 [facility] Comment on above: Performed By: #### L [id number] ####[facility] (BEAKER)[address] [place] [address] Hematocrit (Bld) [Volume fraction] 21 % Low 38-51 [facility] Comment on above: Performed By: #### L [id number] ####[facility] (BEAKER)[address] [place] [address] Hemoglobin (Bld) [Mass/Vol] 7.1 g/dL Low 12.0-17.0 [facility] Comment on above: Performed By: #### L [id number] ####[facility] (BEAKER)[address] [place] [address] POCT BASE EXCESS -4.0 mmol/L Low -2.0-3.0 [facility] Comment on above: Performed By: #### L [id number] ####[facility] (BEAKER)[address] [place] [address] POCT IONIZED CALCIUM 1.32 mmol/L Normal 1.12-1.32 [facility] Comment on above: Performed By: #### L [id number] ####[facility] (BEAKER)[address] [place] [address] POCT PCO2 44.7 mmHg Normal 41.0-51.0 [facility] Comment on above: Performed By: #### L [id number] ####[facility] (BEAKER)[address] [place] [address] POCT PH 7.30 Low 7.31-7.41 [facility] Comment on above: Performed By: #### L [id number] ####[facility] (BEAKER)[address] [place] [address] POCT PO2 449 mmHg High 80-105 [facility] Comment on above: Performed By: #### L [id number] ####[facility] (BEAKER)[address] [place] [address] POCT SO2 100 % High 95-98 [facility] Comment on above: Performed By: #### L [id number] ####[facility] (BEAKER)[address] [place] [address] Potassium [Moles/Vol] 4.4 mmol/L Normal 3.5-4.9 [facility] Comment on above: Performed By: #### L [id number] ####[facility] (BEAKER)[address] [place] [address] Sodium [Moles/Vol] 141 mmol/L Normal 138.0-146.0 [facility] Comment on above: Performed By: #### L [id number] ####[facility] (BEAKER)[address] [place] [address] CO2 [Moles/Vol] 25.0 mmol/L Normal 21.0-29.[address] [facility] Comment on above: Performed By: #### L [id number] ####[facility] (BEAKER)[address] [place] [address] Glucose [Mass/Vol] 171 mg/dL High 70-105 [facility] Comment on above: Performed By: #### L [id number] ####[facility] (BEAKER)[address] [address] HCO3 (Bld) [Moles/Vol] 24.0 mmol/L Normal 23.0-28.0 [facility] Comment on above: Performed By: #### L [id number] ####[facility] (BEAKER)[address] [address] Hematocrit (Bld) [Volume fraction] 26 % Low 38-51 [facility] Comment on above: Performed By: #### L [id number] ####[facility] (BEAKER)[address] [address] Hemoglobin (Bld) [Mass/Vol] 8.8 g/dL Low 12.0-17.0 [facility] Comment on above: Performed By: #### L [id number] ####[facility] [address] POCT BASE EXCESS -1.0 mmol/L Normal -2.0-3.0 [facility] Comment on above: Performed By: #### L [id number] ####[facility] (BEAKER)[address] [address] POCT IONIZED CALCIUM 1.06 mmol/L Low 1.12-1.32 [facility] Comment on above: Performed By: #### L [id number] ####[facility] ([facility]ER)[address] [address] POCT PCO2 38.1 mmHg Low 41.0-51.0 [facility] Comment on above: Performed By: #### L [id number] ####[facility] (BEAKER)[address] [address] POCT PH 7.41 Normal 7.31-7.41 [facility] Comment on above: Performed By: #### L [id number] ####[facility] (BEAKER)[address] [address] POCT PO2 534 mmHg High 80-105 [facility] Comment on above: Performed By: #### L [id number] ####[facility] (BEAKER)[address] [place] [address] POCT SO2 100 % High 95-98 [facility] Comment on above: Performed By: #### L [id number] ####[facility] (BEAKER)[address] [place] [address] Potassium [Moles/Vol] 4.1 mmol/L Normal 3.5-4.9 [facility] Comment on above: Performed By: #### L [id number] ####[facility] (BEAKER)[address] [place] [address] Sodium [Moles/Vol] 141 mmol/L Normal 138.0-146.0 [facility] Comment on above: Performed By: #### L [id number] ####[facility] (BEAKER)[address] [place] [address] CO2 [Moles/Vol] 27.0 mmol/L Normal 21.0-29.[address] [facility] Comment on above: Performed By: #### L [id number] ####[facility] (BEAKER)[address] [place] [address] Glucose [Mass/Vol] 187 mg/dL High 70-105 [facility] Comment on above: Performed By: #### L [id number] ####[facility] (BEAKER)[address] [place] [address] HCO3 (Bld) [Moles/Vol] 25.8 mmol/L Normal 23.0-28.0 [facility] Comment on above: Performed By: #### L [id number] ####[facility] (BEAKER)[address] [place] [address] Hematocrit (Bld) [Volume fraction] 26 % Low 38-51 [facility] Comment on above: Performed By: #### L [id number] ####[facility] (BEAKER)[address] [place] [address] Hemoglobin (Bld) [Mass/Vol] 8.8 g/dL Low 12.0-17.0 [facility] Comment on above: Performed By: #### L [id number] ####[facility] [address] POCT BASE EXCESS 1.0 mmol/L Normal -2.0-3.[address] [facility] Comment on above: Performed By: #### L [id number] ####[facility] [address] POCT IONIZED CALCIUM 1.06 mmol/L Low 1.12-1.32 [facility] Comment on above: Performed By: #### L [id number] ####[facility] ([facility])[address] [address] POCT PCO2 40.4 mmHg Low 41.0-51.0 [facility] Comment on above: Performed By: #### L [id number] ####[facility] ([facility])[address] [address] POCT PH 7.41 Normal 7.31-7.41 [facility] Comment on above: Performed By: #### L [id number] ####[facility] ([facility])[address] [address] POCT PO2 506 mmHg High 80-105 [facility] Comment on above: Performed By: #### L [id number] ####[facility] ([facility])[address], [place] [address] POCT SO2 100 % High 95-98 [facility] Comment on above: Performed By: #### L [id number] ####[facility] ([facility])[address], [place] [address] Potassium [Moles/Vol] 4.2 mmol/L Normal 3.5-4.9 [facility] Comment on above: Performed By: #### L [id number] ####[facility] [place] [address] Sodium [Moles/Vol] 141 mmol/L Normal 138.0-146.0 [facility] Comment on above: Performed By: #### L [id number] ####[facility] (BEAKER)[address] [place] [address] CO2 [Moles/Vol] 23.0 mmol/L Normal 21.0-29.[address] [facility] Comment on above: Performed By: #### L [id number] ####[facility] (BEAKER)[address] [place] [address] Glucose [Mass/Vol] 211 mg/dL High 70-105 [facility] Comment on above: Performed By: #### L [id number] ####[facility] (BEAKER)[address] [place] [address] HCO3 (Bld) [Moles/Vol] 22.1 mmol/L Low 23.0-28.0 [facility] Comment on above: Performed By: #### L [id number] ####[facility] (BEAKER)[address] [place] [address] Hematocrit (Bld) [Volume fraction] 28 % Low 38-51 [facility] Comment on above: Performed By: #### L [id number] ####[facility] (BEAKER)[address] [place] [address] Hemoglobin (Bld) [Mass/Vol] 9.5 g/dL Low 12.0-17.0 [facility] Comment on above: Performed By: #### L [id number] ####[facility] (BEAKER)[address] [place] [address] POCT BASE EXCESS -3.0 mmol/L Low -2.0-3.0 [facility] Comment on above: Performed By: #### L [id number] ####[facility] (BEAKER)[address] [place] [address] POCT IONIZED CALCIUM 1.08 mmol/L Low 1.12-1.32 [facility] Comment on above: Performed By: #### L [id number] ####[facility] (BE[facility]ER)[address] [place] [address] POCT PCO2 38.1 mmHg Low 41.0-51.0 [facility] Comment on above: Performed By: #### L [id number] ####[facility] (BE[facility]ER)[address] [place] [address] POCT PH 7.37 Normal 7.31-7.41 [facility] Comment on above: Performed By: #### L [id number] ####[facility] (BEAKER)[address] [place] [address] POCT PO2 418 mmHg High 80-105 [facility] Comment on above: Performed By: #### L [id number] ####[facility] ([facility]ER)[address] [place] [address] POCT SO2 100 % High 95-98 [facility] Comment on above: Performed By: #### L [id number] ####[facility] (BE[facility]ER)[address] [place] [address] Potassium [Moles/Vol] 4.7 mmol/L Normal 3.5-4.9 [facility] Comment on above: Performed By: #### L [id number] ####[facility] (BEAKER)[address] [place] [address] Sodium [Moles/Vol] 137 mmol/L Low 138.0-146.0 [facility] Comment on above: Performed By: #### L [id number] ####[facility] (BE[facility]ER)[address] [place] [address] CO2 [Moles/Vol] 24.0 mmol/L Normal 21.0-29.[address] [facility] Comment on above: Performed By: #### L [id number] ####[facility] (BE[facility]ER)[address] [place] [address] Glucose [Mass/Vol] 203 mg/dL High 70-105 [facility] Comment on above: Performed By: #### L [id number] ####[facility] ([facility]ER)[address] [address] HCO3 (Bld) [Moles/Vol] 22.6 mmol/L Low 23.0-28.0 [facility] Comment on above: Performed By: #### L [id number] ####[facility] (BE[facility]ER)[address] [address] Hematocrit (Bld) [Volume fraction] 26 % Low 38-51 [facility] Comment on above: Performed By: #### L [id number] ####[facility] (BE[facility]ER)[address] [address] Hemoglobin (Bld) [Mass/Vol] 8.8 g/dL Low 12.0-17.0 [facility] Comment on above: Performed By: #### L [id number] ####[facility] (BE[facility]ER)[address] [address] POCT BASE EXCESS -2.0 mmol/L Normal -2.0-3.0 [facility] Comment on above: Performed By: #### L [id number] ####[facility] ([facility])[address] [address] POCT IONIZED CALCIUM 1.06 mmol/L Low 1.12-1.32 [facility] Comment on above: Performed By: #### L [id number] ####[facility] ([facility])[address] [address] POCT PCO2 38.7 mmHg Low 41.0-51.0 [facility] Comment on above: Performed By: #### L [id number] ####[facility] ([facility])[address] [address] POCT PH 7.38 Normal 7.31-7.41 [facility] Comment on above: Performed By: #### L [id number] ####[facility] ([facility])[address] [address] POCT PO2 377 mmHg High 80-105 [facility] Comment on above: Performed By: #### L [id number] ####[facility] ([facility])[address] [place] [address] POCT SO2 100 % High 95-98 [facility] Comment on above: Performed By: #### L [id number] ####[facility] (BEAKER)[address] [place] [address] Potassium [Moles/Vol] 5.0 mmol/L High 3.5-4.9 [facility] Comment on above: Performed By: #### L [id number] ####[facility] (BEAKER)[address] [place] [address] Sodium [Moles/Vol] 137 mmol/L Low 138.0-146.0 [facility] Comment on above: Performed By: #### L [id number] ####[facility] (BEAKER)[address] [place] [address] CO2 [Moles/Vol] 24.0 mmol/L Normal 21.0-29.[address] [facility] Comment on above: Performed By: #### L [id number] ####[facility] (BEAKER)[address] [place] [address] Glucose [Mass/Vol] 193 mg/dL High 70-105 [facility] Comment on above: Performed By: #### L [id number] ####[facility] (BEAKER)[address] [place] [address] HCO3 (Bld) [Moles/Vol] 23.3 mmol/L Normal 23.0-28.0 [facility] Comment on above: Performed By: #### L [id number] ####[facility] (BEAKER)[address] [place] [address] Hematocrit (Bld) [Volume fraction] 28 % Low 38-51 [facility] Comment on above: Performed By: #### L [id number] ####[facility] (BEAKER)[address] [place] [address] Hemoglobin (Bld) [Mass/Vol] 9.5 g/dL Low 12.0-17.0 [facility] Comment on above: Performed By: #### L [id number] ####[facility] (BEAKER)[address] [address] POCT BASE EXCESS -2.0 mmol/L Normal -2.0-3.0 [facility] Comment on above: Performed By: #### L [id number] ####[facility] (BEAKER)[address] [address] POCT IONIZED CALCIUM 1.07 mmol/L Low 1.12-1.32 [facility] Comment on above: Performed By: #### L [id number] ####[facility] [address] POCT PCO2 38.7 mmHg Low 41.0-51.0 [facility] Comment on above: Performed By: #### L [id number] ####[facility], [place] [address] POCT PH 7.39 Normal 7.31-7.41 [facility] Comment on above: Performed By: #### L [id number] ####[facility] (BEAKER)[address] [place] [address] POCT PO2 367 mmHg High 80-105 [facility] Comment on above: Performed By: #### L [id number] ####[facility] [place] [address] POCT SO2 100 % High 95-98 [facility] Comment on above: Performed By: #### L [id number] ####[facility] (BEAKER)[address] [place] [address] Potassium [Moles/Vol] 5.6 mmol/L High 3.5-4.9 [facility] Comment on above: Performed By: #### L [id number] ####[facility] (BEAKER)[address] [place] [address] Sodium [Moles/Vol] 138 mmol/L Normal 138.0-146.0 [facility] Comment on above: Performed By: #### L [id number] ####[facility] (BEAKER)[address] [place] [address] CO2 [Moles/Vol] 25.0 mmol/L Normal 21.0-29.[address] [facility] Comment on above: Performed By: #### L [id number] ####[facility] (BEAKER)[address] [place] [address] Glucose [Mass/Vol] 165 mg/dL High 70-105 [facility] Comment on above: Performed By: #### L [id number] ####[facility] (BEAKER)[address] [place] [address] HCO3 (Bld) [Moles/Vol] 23.5 mmol/L Normal 23.0-28.0 [facility] Comment on above: Performed By: #### L [id number] ####[facility] (BEAKER)[address] [place] [address] Hematocrit (Bld) [Volume fraction] 27 % Low 38-51 [facility] Comment on above: Performed By: #### L [id number] ####[facility] (BEAKER)[address] [place] [address] Hemoglobin (Bld) [Mass/Vol] 9.2 g/dL Low 12.0-17.0 [facility] Comment on above: Performed By: #### L [id number] ####[facility] (BEAKER)[address] [place] [address] POCT BASE EXCESS -1.0 mmol/L Normal -2.0-3.0 [facility] Comment on above: Performed By: #### L [id number] ####[facility] (BEAKER)[address] [place] [address] POCT IONIZED CALCIUM 1.08 mmol/L Low 1.12-1.32 [facility] Comment on above: Performed By: #### L [id number] ####[facility] (BEAKER)[address] [place] [address] POCT PCO2 38.4 mmHg Low 41.0-51.0 [facility] Comment on above: Performed By: #### L [id number] ####[facility] (BEAKER)[address] [place] [address] POCT PH 7.39 Normal 7.31-7.41 [facility] Comment on above: Performed By: #### L [id number] ####[facility] (BEAKER)[address] [place] [address] POCT PO2 387 mmHg High 80-105 [facility] Comment on above: Performed By: #### L [id number] ####[facility] (BEAKER)[address] [place] [address] POCT SO2 100 % High 95-98 [facility] Comment on above: Performed By: #### L [id number] ####[facility] (BEAKER)[address] [place] [address] Potassium [Moles/Vol] 5.9 mmol/L High 3.5-4.9 [facility] Comment on above: Performed By: #### L [id number] ####[facility] (BEAKER)[address] [place] [address] Sodium [Moles/Vol] 138 mmol/L Normal 138.0-146.0 [facility] Comment on above: Performed By: #### L [id number] ####[facility] (BEAKER)[address] [place] [address] CO2 [Moles/Vol] 26.0 mmol/L Normal 21.0-29.[address] [facility] Comment on above: Performed By: #### L [id number] ####[facility] (BEAKER)[address] [place] [address] Glucose [Mass/Vol] 142 mg/dL High 70-105 [facility] Comment on above: Performed By: #### L [id number] ####[facility] (BEAKER)[address] [address] HCO3 (Bld) [Moles/Vol] 24.5 mmol/L Normal 23.0-28.0 [facility] Comment on above: Performed By: #### L [id number] ####[facility] (BEAKER)[address] [address] Hematocrit (Bld) [Volume fraction] 24 % Low 38-51 [facility] Comment on above: Performed By: #### L [id number] ####[facility] (BEAKER)[address] [address] Hemoglobin (Bld) [Mass/Vol] 8.2 g/dL Low 12.0-17.0 [facility] Comment on above: Performed By: #### L [id number] ####[facility] (BEAKER)[address] [address] POCT BASE EXCESS -1.0 mmol/L Normal -2.0-3.0 [facility] Comment on above: Performed By: #### L [id number] ####[facility] (BEAKER)[address] [address] POCT IONIZED CALCIUM 0.99 mmol/L Low 1.12-1.32 [facility] Comment on above: Performed By: #### L [id number] ####[facility] (BEAKER)[address] [place] [address] POCT PCO2 44.6 mmHg Normal 41.0-51.0 [facility] Comment on above: Performed By: #### L [id number] ####[facility] (BEAKER)[address], [place] [address] POCT PH 7.35 Normal 7.31-7.41 [facility] Comment on above: Performed By: #### L [id number] ####[facility] (BEAKER)[address] [place] [address] POCT PO2 462 mmHg High 80-105 [facility] Comment on above: Performed By: #### L [id number] ####[facility] (BEAKER)[address] [place] [address] POCT SO2 100 % High 95-98 [facility] Comment on above: Performed By: #### L [id number] ####[facility] (BEAKER)[address] [place] [address] Potassium [Moles/Vol] 6.2 mmol/L Critically high 3.5-4.9 [facility] Comment on above: Performed By: #### L [id number] ####[facility] (BEAKER)[address] [place] [address] Sodium [Moles/Vol] 136 mmol/L Low 138.0-146.0 [facility] Comment on above: Performed By: #### L [id number] ####[facility] (BEAKER)[address] [place] [address] CO2 [Moles/Vol] 24.0 mmol/L Normal 21.0-29.[address] [facility] Comment on above: Performed By: #### L [id number] ####[facility] (BEAKER)[address] [place] [address] Glucose [Mass/Vol] 151 mg/dL High 70-105 [facility] Comment on above: Performed By: #### L [id number] ####[facility] (BEAKER)[address] [place] [address] HCO3 (Bld) [Moles/Vol] 22.6 mmol/L Low 23.0-28.0 [facility] Comment on above: Performed By: #### L [id number] ####[facility] (BEAKER)[address] [place] [address] Hematocrit (Bld) [Volume fraction] 38 % Normal 38-51 [facility] Comment on above: Performed By: #### L [id number] ####[facility] (BEAKER)[address] [place] [address] Hemoglobin (Bld) [Mass/Vol] 12.9 g/dL Normal 12.0-17.0 [facility] Comment on above: Performed By: #### L [id number] ####[facility] (BEAKER)[address] [address] POCT BASE EXCESS -4.0 mmol/L Low -2.0-3.0 [facility] Comment on above: Performed By: #### L [id number] ####[facility] (BEAKER)[address] [address] POCT IONIZED CALCIUM 1.25 mmol/L Normal 1.12-1.32 [facility] Comment on above: Performed By: #### L [id number] ####[facility] (BEAKER)[address] [address] POCT PCO2 47.5 mmHg Normal 41.0-51.0 [facility] Comment on above: Performed By: #### L [id number] ####[facility] (BEAKER)[address] [address] POCT PH 7.29 Low 7.31-7.41 [facility] Comment on above: Performed By: #### L [id number] ####[facility] (BEAKER)[address] [address] POCT PO2 336 mmHg High 80-105 [facility] Comment on above: Performed By: #### L [id number] ####[facility] (BEAKER)[address] [address] POCT SO2 100 % High 95-98 [facility] Comment on above: Performed By: #### L [id number] ####[facility] (BEAKER)[address], [place] [address] Potassium [Moles/Vol] 4.4 mmol/L Normal 3.5-4.9 [facility] Comment on above: Performed By: #### L [id number] ####[facility] (BEAKER)[address] [address] Sodium [Moles/Vol] 139 mmol/L Normal 138.0-146.0 [facility] Comment on above: Performed By: #### L [id number] ####[facility] (BEAKER)[address] [place] [address] CO2 [Moles/Vol] 23.0 mmol/L Normal 21.0-29.[address] [facility] Comment on above: Performed By: #### L [id number] ####[facility] (BEAKER)[address] [place] [address] Glucose [Mass/Vol] 123 mg/dL High 70-105 [facility] Comment on above: Performed By: #### L [id number] ####[facility] (BEAKER)[address] [place] [address] HCO3 (Bld) [Moles/Vol] 22.1 mmol/L Low 23.0-28.0 [facility] Comment on above: Performed By: #### L [id number] ####[facility] (BEAKER)[address] [place] [address] Hematocrit (Bld) [Volume fraction] 38 % Normal 38-51 [facility] Comment on above: Performed By: #### L [id number] ####[facility] (BEAKER)[address] [place] [address] Hemoglobin (Bld) [Mass/Vol] 12.9 g/dL Normal 12.0-17.0 [facility] Comment on above: Performed By: #### L [id number] ####[facility] (BEAKER)[address] [place] [address] POCT BASE EXCESS -3.0 mmol/L Low -2.0-3.0 [facility] Comment on above: Performed By: #### L [id number] ####[facility] (BEAKER)[address] [place] [address] POCT IONIZED CALCIUM 1.25 mmol/L Normal 1.12-1.32 [facility] Comment on above: Performed By: #### L [id number] ####[facility] [place] [address] POCT PCO2 39.3 mmHg Low 41.0-51.0 [facility] Comment on above: Performed By: #### L [id number] ####[facility] ([facility] [place] [address] POCT PH 7.36 Normal 7.31-7.41 [facility] Comment on above: Performed By: #### L [id number] ####[facility] ([facility])[address] [place] [address] POCT PO2 412 mmHg High 80-105 [facility] Comment on above: Performed By: #### L [id number] ####[facility] ([facility])[address] [place] [address] POCT SO2 100 % High 95-98 [facility] Comment on above: Performed By: #### L [id number] ####[facility] ([facility])[address] [place] [address] Potassium [Moles/Vol] 3.8 mmol/L Normal 3.5-4.9 [facility] Comment on above: Performed By: #### L [id number] ####[facility] ([facility])[address] [place] [address] Sodium [Moles/Vol] 140 mmol/L Normal 138.0-146.0 [facility] Comment on above: Performed By: #### L [id number] ####[facility] ([facility])[address] [place] [address] PROTIME-INRon 04-22-2023 INR IN PPP BY COAGULATION ASSAY 1.60 High 0.90-1.10 [facility] Comment on above: Result Comment: [facility] P RECOMMENDED INR FOR WARFARIN THERAPY CONDITION INRPROPHYLAXIS OF VENOUS THROMBOSIS 2-3(HIGH-RISK SURGERY)TREATMENT OF VENOUS THROMBOSIS 2-3TREATMENT OF PULMONARY EMBOLISM 2-3PREVENTION OF SYSTEMIC EMBOLISM: 2-3 ACUTE MYOCARDIAL INFARCTION TISSUE HEART VALVES VALVULAR HEART DISEASE ATRIAL FIBRILLATION RECURRENT SYSTEMIC EMBOLISMMECHANICAL HEART VALVE 2.5-3.5 FROM: ORAL ANTICOAGULANTS. MECHANISM OF ACTION, CLINICAL EFFECTIVENESS, AND OPTIMAL THERAPEUTIC RANGE. CHEST 1995;108:231S-246S. Performed By: #### L [id number] ####[facility] ([place] AnalogAKER)[address] , [place] [address] PROTHROMBIN TIME (PT) IN PPP BY COAGULATION ASSAY 19.1 Seconds High 12.3-14.8 [facility] Comment on above: Performed By: #### L [id number] ####[facility] (BEAKER)[address] [place] [address] INR IN PPP BY COAGULATION ASSAY 1.72 High 0.90-1.10 [facility] Comment on above: Result Comment: [facility] FOR WARFARIN THERAPY CONDITION INRPROPHYLAXIS OF VENOUS THROMBOSIS 2-3(HIGH-RISK SURGERY)TREATMENT OF VENOUS THROMBOSIS 2-3TREATMENT OF PULMONARY EMBOLISM 2-3PREVENTION OF SYSTEMIC EMBOLISM: 2-3 ACUTE MYOCARDIAL INFARCTION TISSUE HEART VALVES VALVULAR HEART DISEASE ATRIAL FIBRILLATION RECURRENT SYSTEMIC EMBOLISMMECHANICAL HEART VALVE 2.5-3.5 FROM: ORAL ANTICOAGULANTS. MECHANISM OF ACTION, CLINICAL EFFECTIVENESS, AND OPTIMAL THERAPEUTIC RANGE. CHEST 1995;108:231S-246S. Performed By: #### L [id number] ####[facility] ([employer])[address] [place] [address] PROTHROMBIN TIME (PT) IN PPP BY COAGULATION ASSAY 20.2 Seconds High 12.3-14.8 [facility] Comment on above: Performed By: #### L [id number] ####[facility] (BEAeluros)[address] [place] [address] INR IN PPP BY COAGULATION ASSAY 2.00 High 0.90-1.10 [facility] Comment on above: Order Comment: Pre-o p diagnosis:NSTEMI (non-ST elevated myocardial infarction) (CMS/HCC) [I21.4]Acute non-ST segment elevation myocardial infarction (CMS/HCC) [I21.4]Coronary artery disease, unspecified vessel or lesion type, unspecified whether angina present, unspecified whether [place] or 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] Result Comment: ACCC [...] CHEST 1995;108:231S-246S. Performed By: #### L [id number] ####[facility] (BEAKER)[address] [place] [address] PROTHROMBIN TIME (PT) IN PPP BY COAGULATION ASSAY 22.8 Seconds High 12.3-14.8 [facility] Comment on above: Order Comment: Pre-o p diagnosis:NSTEMI (non-ST elevated myocardial infarction) (CMS/HCC) [I21.4]Acute non-ST segment elevation myocardial infarction (CMS/HCC) [I21.4]Coronary artery disease, unspecified vessel or lesion type, unspecified whether angina present, unspecified whether [place] or 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] Performed By: #### L [id number] ####[facility] ([facility])[address] [address] 36on 04-21-2023 36 Called patient and l eft voicemail. Updated NPO after midnight and not to take any medications in the AM. Surgery scheduled for 0730am. Normal [facility] ANESon 04-21-2023 ANES [facility] Telephoneon 04-21-2023 Telephone [phone] Sarina Ortizan 1955 M Date Provider Department [place] 04/21/2023 [facility] Family History Family history unknown: Yes [facility] APTTon 04-09-2023 ACTIVATED PARTIAL THROMBOPLASTIN TIME IN PPP BY COAGULATION ASSAY 34.7 Seconds Normal 25.0-35.0 [facility] Comment on above: Result Comment: Clin ical significance of the APTT is questionable in the presence of heparin. Performed By: #### L [id number] ####[facility] ([facility] [address] BASIC METABOLIC PANELon 03-18 Anion gap [Moles/Vol] 11 mmol/L Normal 7-20 [facility] Comment on above: Performed By: #### L [id number] ####[facility] ([facility] [address] Calcium [Mass/Vol] 9.8 mg/dL Normal 8.6-10.3 [facility] Comment on above: Performed By: #### L [id number] ####[facility] (BEAKER)[address] [place] [address] Chloride [Moles/Vol] 105 mmol/L Normal 98-107 [facility] Comment on above: Performed By: #### L [id number] ####[facility] (BEAKER)[address] [place] [address] CO2 [Moles/Vol] 25 mmol/L Normal 21-31 [facility] Comment on above: Performed By: #### L [id number] ####[facility] (BEAKER)[address] [place] [address] Creatinine [Mass/Vol] 0.91 mg/dL Normal 0.70-1.30 [facility] Comment on above: Performed By: #### L [id number] ####[facility] ([facility] [place] [address] GLOMERULAR FILTRATION RATE ML/MIN/1.73 SQ M.PREDICTED 91.2 mL/min/1.73m*2 Normal >60.0 [facility] Comment on above: Result Comment: [facility]???s estimated glomerular filtration rate (eGFR) will no [...] of individuals. Performed By: #### L [id number] ####[facility] (BEAKER)[address] [place] [address] Glucose [Mass/Vol] 105 mg/dL High 70-100 [facility] Comment on above: Performed By: #### L [id number] ####[facility] (BEAKER)[address] [place] [address] Potassium [Moles/Vol] 3.9 mmol/L Normal 3.5-5.1 [facility] Comment on above: Performed By: #### L [id number] ####[facility] ([facility])[address] [place] [address] Sodium [Moles/Vol] 137 mmol/L Normal 136-145 [facility] Comment on above: Performed By: #### L [id number] ####[facility] ([facility])[address] [place] [address] Urea nitrogen [Mass/Vol] 15 mg/dL Normal 7-25 [facility] Comment on above: Performed By: #### L [id number] ####[facility] ([facility])[address] [place] [address] UREA NITROGEN/CREATININ E (MASS RATIO) IN SER/PLAS 16.5 Normal [facility] Comment on above: Performed By: #### L [id number] ####[facility] ([facility])[address] [place] [address] CBC WITH AUTO DIFFERENTIALon 04-09-2023 Basophils (Bld) [#/Vol] 0.05 10*3/uL Normal 0.00-0.20 [facility] Comment on above: Performed By: #### L [id number] ####[facility] ([facility])[address] [place] [address] Basophils/100 WBC (Bld) 0.8 % Normal 0.0-1.0 [facility] Comment on above: Performed By: #### L [id number] ####[facility] ([facility])[address] [place] [address] Eosinophils (Bld) [#/Vol] 0.09 10*3/uL Normal 0.00-0.50 [facility] Comment on above: Performed By: #### L [id number] ####[facility] ([facility])[address] [place] [address] Eosinophils/100 WBC (Bld) 1.4 % Normal 0.0-6.0 [facility] Comment on above: Performed By: #### L [id number] ####[facility] (BEAKER)[address] [place] [address] Erythrocyte distribution width (RBC) [Ratio] 13.1 % Normal 11.5-15.0 [facility] Comment on above: Performed By: #### L [id number] ####[facility] (BEAKER)[address] [place] [address] ERYTHROCYTE MEAN CORPUSCULAR HEMOGLOBIN CONCENTRATION (G/DL) BY AUTOMATED 33.3 g/dL Normal 32.0-35.0 [facility] Comment on above: Performed By: #### L [id number] ####[facility] ([facility])[address] [place] [address] Hematocrit (Bld) [Volume fraction] 43.0 % Normal 39.0-55.0 [facility] Comment on above: Performed By: #### L [id number] ####[facility] [place] [address] Hemoglobin (Bld) [Mass/Vol] 14.3 g/dL Normal 13.0-17.0 [facility] Comment on above: Performed By: #### L [id number] ####[facility] ([facility] [place] [address] Immature granulocytes (Bld) [#/Vol] 0.03 10*3/uL Normal 0.00-0.20 [facility] Comment on above: Performed By: #### L [id number] ####[facility] (BEAKER)[address] [place] [address] Immature granulocytes/100 WBC (Bld) 0.5 % Normal 0.0-1.0 [facility] Comment on above: Performed By: #### L [id number] ####[facility] (BEAKER)[address] [place] [address] Lymphocytes (Bld) [#/Vol] 2.46 10*3/uL Normal 1.20-4.00 [facility] Comment on above: Performed By: #### L [id number] ####[facility] (BEAKER)[address] [place] [address] Lymphocytes/100 WBC (Bld) 38.2 % Normal 20.0-45.0 [facility] Comment on above: Performed By: #### L [id number] ####[facility] (BEAKER)[address] [place] [address] MCH (RBC) [Entitic mass] 30.4 pg Normal 27.0-33.0 [facility] Comment on above: Performed By: #### L [id number] ####[facility] (BEAKER)[address] [place] [address] MCV (RBC) [Entitic vol] 91.3 fL Normal 82.0-98.0 [facility] Comment on above: Performed By: #### L [id number] ####[facility] [place] [address] Monocytes (Bld) [#/Vol] 0.51 10*3/uL Normal 0.10-1.00 [facility] Comment on above: Performed By: #### L [id number] ####[facility] ([facility])[address] [place] [address] Monocytes/100 WBC (Bld) 7.9 % Normal 5.0-12.0 [facility] Comment on above: Performed By: #### L [id number] ####[facility] ([facility])[address] [place] [address] Neutrophils (Bld) [#/Vol] 3.30 10*3/uL Normal 1.60-7.60 [facility] Comment on above: Performed By: #### L [id number] ####[facility] ([facility])[address] [place] [address] Neutrophils/100 WBC (Bld) 51.2 % Normal 40.0-72.0 [facility] Comment on above: Performed By: #### L [id number] ####[facility] ([facility])[address] [place] [address] NRBC (PER 100 WBCS) BY AUTOMATED COUNT 0.0 % Normal 0 [facility] Comment on above: Performed By: #### L [id number] ####[facility] ([facility])[address] [address] PLATELETS (10*3/UL) IN BLOOD AUTOMATED COUNT 281 10*3/uL Normal 150-400 [facility] Comment on above: Performed By: #### L [id number] ####[facility] ([facility]ER)[address] [address] RBC (Bld) [#/Vol] 4.71 10*6/uL Normal 4.20-5.70 [facility] Comment on above: Performed By: #### L [id number] ####[facility] (BEAKER)[address] [address] WBC (Bld) [#/Vol] 6.44 10*3/uL Normal 4.00-10.60 [facility] Comment on above: Performed By: #### L [id number] ####[facility] (BEAKER)[address] [place] [address] ETHANOLon 04-09-2023 ETHANOL (MG/DL) IN SER/PLAS <10 Normal [facility] Comment on above: Result Comment: No E thanol detected Performed By: #### L [id number] ####[facility] (BEAKER)[address] [place] [address] ETHANOL CALCULATED (%) Normal [facility] Comment on above: Performed By: #### L [id number] ####[facility] (BEAKER)[address] [place] [address] Follow-Upon 04-09-2023 Follow-Up Normal [facility] HEMOGLOBIN A1Con 04-09-2023 Glucose [Mass/Vol] 128 mg/dL Normal [facility] Comment on above: Performed By: #### L [id number] ####[facility] (BEAKER)[address] [place] [address] HbA1c (Bld) [Mass fraction] 6.1 % High 4.0-6.0 [facility] Comment on above: Performed By: #### L [id number] ####[facility] ([facility])[address] [place] [address] HPon 04-09-2023 HP Normal [facility] Labon 04-09-2023 Lab [id number] Gui Ortiz 1955 M Date Provider Department [place] 04/09/2023 2245-[facility] OPD LAB RESOURCE [facility]PD [place] Medical C Family History Family history unknown: Yes Normal [facility] MRSA/MSSA DNA NASALon 2022 MRSA DNA Negative Normal Negative [facility] Comment on above: Order Comment: Testi ng [...] preclude nasal colonization. Performed By: #### L [id number] ####[facility] ([facility])[address] [place] [address] MSSA DNA Negative Normal Negative [facility] Comment on above: Order Comment: Testi ng [...] preclude nasal colonization. Performed By: #### L [id number] ####[facility] ([facility])[address] [place] [address] Orders Onlyon 04-09-2023 Orders Only [id number] Gui Ortiz 1955 M Date Provider Department Center 04/09/2023 728-[facility] [place] [facility] Family History Family history unknown: Yes Normal [facility] PROTIME-INRon 04-09-2023 INR IN PPP BY COAGULATION ASSAY 1.00 Normal 0.90-1.10 [facility] Comment on above: Result Comment: [facility] FOR [facility]ARF[facility] THERAPY CONDITION INRPROPHYLAXIS OF VENOUS THROMBOSIS 2-3(HIGH-RISK SURGERY)TREATMENT OF VENOUS THROMBOSIS 2-3TREATMENT OF PULMONARY EMBOLISM 2-3PREVENTION OF SYSTEMIC EMBOLISM: 2-3 ACUTE MYOCARDIAL INFARCTION TISSUE HEART VALVES VALVULAR HEART DISEASE ATRIAL FIBRILLATION RECURRENT SYSTEMIC EMBOLISMMECHANICAL HEART VALVE 2.5-3.5 FROM: ORAL ANTICOAGULANTS. MECHANISM OF ACTION, CLINICAL EFFECTIVENESS, AND OPTIMAL THERAPEUTIC RANGE. CHEST 1995;108:[id number]-246S. Performed By: #### L [id number] ####[facility] ([employer])[address] [place] [address] PROTHROMBIN TIME (PT) IN PPP BY COAGULATION ASSAY 13.2 Seconds Normal 12.3-14.8 [facility] Comment on above: Performed By: #### L [id number] ####[facility] ([facility])[address] [place] [address] TOXICOLOGY PANEL URINEon AMPHETAMINE+METHAM PHETAMINE SCREEN (PRESENCE) IN URINE Negative Normal Negative [facility] Comment on above: Performed By: #### L [id number] ####[facility] ([facility])[address] [place] [address] BARBITURATES PRESENCE IN URINE BY SCREEN METHOD Negative Normal Negative [facility] Comment on above: Performed By: #### L [id number] ####[facility] (BEAKER)[address] , [place] [address] Benzodiazepines Ql (U) Negative Normal Negative [facility] Comment on above: Performed By: #### L [id number] ####[facility] , [place] [address] CANNABINOID (PRESENCE) IN URINE BY SCREEN METHOD Negative Normal Negative [facility] Comment on above: Performed By: #### L [id number] ####[facility] ([facility])[address] [facility] [place] [address] Cocaine Ql (U) Negative Normal Negative [facility] Comment on above: Performed By: #### L [id number] ####[facility] ([facility])[address] , [place] [address] METHADONE (PRESENCE) IN URINE BY SCREEN METHOD Normal [facility] Comment on above: Result Comment: Meth adone being sent out. Results to follow. Performed By: #### L [id number] ####[facility] ([facility])[address] [place] [address] OPIATES (PRESENCE) IN URINE BY SCREEN METHOD Negative Normal Negative [facility] Comment on above: Performed By: #### L [id number] ####[facility] ([facility])[address] , [place] [address] PHENCYCLIDINE PRESENCE IN URINE BY SCREEN METHOD Negative Normal Negative [facility] Comment on above: Performed By: #### L [id number] ####[facility] ([facility])[address] , [place] [address] Propoxyphene Screen Ql (U) Negative Normal Negative [facility] Comment on above: Performed By: #### L [id number] ####[facility] ([facility])[address] , [place] [address] TRICYCLIC ANTIDEPRESSANTS (PRESENCE) IN URINE Negative Normal Negative [facility] Comment on above: Performed By: #### L [id number] ####[facility] ([facility])[address] [place] [address] TYPE AND SCREENon 04-09-2023 AB SCREEN Negative Normal [facility] Comment on above: Performed By: #### L [id number] ####[facility] BLOOD BANK, ABO group Nom (Bld) O Normal [facility] Comment on above: Performed By: #### L [id number] ####[facility] BLOOD BANK, RH TYPE IN BLOOD Positive Normal [facility] Comment on above: Performed By: #### L [id number] ####[facility] BLOOD BANK, URINALYSISon 04-09-2023 BILIRUBIN, TOTAL PRESENCE IN URINE Negative Normal Negative [facility] Comment on above: Performed By: #### L [id number] ####[facility] (BEAKER)[address] [place] [address] Clarity (U) Clear Normal Clear [facility] Comment on above: Performed By: #### L [id number] ####[facility] (BEAKER)[address] [place] [address] Color (U) Yellow Normal Yellow [facility] Comment on above: Performed By: #### L [id number] ####[facility] ([facility]ER)[address] [place] [address] Glucose (U) [Mass/Vol] Negative Normal Negative [facility] Comment on above: Performed By: #### L [id number] ####[facility] (BEAKER)[address] [place] [address] HEMOGLOBIN PRESENCE IN URINE Small Abnormal Negative [facility] Comment on above: Performed By: #### L [id number] ####[facility] ([facility]ER)[address] [place] [address] Ketones Ql (U) Negative Normal Negative [facility] Comment on above: Performed By: #### L [id number] ####[facility] (BEAKER)[address] [place] [address] LEUKOCYTE ESTERASE PRESENCE IN URINE BY TEST STRIP Negative Normal Negative [facility] Comment on above: Performed By: #### L [id number] ####[facility] ([facility]ER)[address] [place] [address] NITRITE PRESENCE IN URINE Negative Normal Negative [facility] Comment on above: Performed By: #### L [id number] ####[facility] [place] [address] pH (U) 6.0 [pH] Normal 5.0-8.0 [facility] Comment on above: Performed By: #### L [id number] ####[facility] ([facility])[address] [place] [address] Protein (U) [Mass/Vol] Negative Normal Negative [facility] Comment on above: Performed By: #### L [id number] ####[facility] ([facility])[address] [place] [address] Specific gravity (U) [Rel density] 1.012 Low 1.015-1.020 [facility] Comment on above: Performed By: #### L [id number] ####[facility] ([facility])[address] [place] [address] URINALYSIS MICROSCOPICon CASTS IN URINE Normal [facility] Comment on above: Performed By: #### L [id number] ####[facility] ([facility])[address] [place] [address] CRYSTALS IN URINE Normal [facility] Comment on above: Performed By: #### L [id number] ####[facility] ([facility])[address] [place] [address] RBC (#/HPF) IN URINE SEDIMENT 3-5 Abnormal None Seen [facility] Comment on above: Performed By: #### L [id number] ####[facility] [place] [address] SQUAMOUS EPITHELIAL CELLS (#/HPF) IN URINE SEDIMENT None Seen Normal None Seen, Occasional [facility] Comment on above: Performed By: #### L [id number] ####[facility] [place] [address] WBC (LEUKOCYTE) (#/HPF) IN URINE SEDIMENT None Seen Normal None Seen [facility] Comment on above: Performed By: #### L [id number] ####[facility] ([facility])[address] [place] [address] Documentationon 04-01-2023 Documentation Normal [facility] 30on 03-23-2023 30 Normal [facility] 30 Normal [facility] 30 Normal [facility] ANTI-XA (HEPARIN LEVEL)on HEPARIN UNFRACTIONATED (U/ML) IN PPP BY CHROMOGENIC METHOD <0.10 Invalid Interpretation Code 0.3-0.7 [facility] Comment on above: Order Comment: Check anti-Xa level every 6 hours while on heparin infusion, or per protocol. Result Comment: [place] roxaban and Apixaban will interfere with the anti Xa assay used to monitor UFH and LMWH. Performed By: #### L [id number] ####[facility] ([facility])[address] [place] [address] BASIC METABOLIC PANELon 10- Anion gap [Moles/Vol] 11 mmol/L Normal 7-20 [facility] Comment on above: Performed By: #### L [id number] ####[facility] ([facility])[address] [place] [address] Calcium [Mass/Vol] 9.1 mg/dL Normal 8.6-10.3 [facility] Comment on above: Performed By: #### L [id number] ####[facility] ([facility])[address] [place] [address] Chloride [Moles/Vol] 107 mmol/L Normal 98-107 [facility] Comment on above: Performed By: #### L [id number] ####[facility] [place] [address] CO2 [Moles/Vol] 23 mmol/L Normal 21-31 [facility] Comment on above: Performed By: #### L [id number] ####[facility] ([facility])[address] [place] [address] Creatinine [Mass/Vol] 0.85 mg/dL Normal 0.70-1.30 [facility] Comment on above: Performed By: #### L [id number] ####[facility] ([facility])[address] [place] [address] GLOMERULAR FILTRATION RATE ML/MIN/1.73 SQ M.PREDICTED 94.1 mL/min/1.73m*2 Normal >60.0 [facility] Comment on above: Result Comment: [facility]???s estimated glomerular filtration rate (eGFR) will no [...] of individuals. Performed By: #### L [id number] ####[facility] ([facility])[address] [address] Glucose [Mass/Vol] 103 mg/dL High 70-100 [facility] Comment on above: Performed By: #### L [id number] ####[facility] ([facility])[address] [place] [address] Potassium [Moles/Vol] 3.8 mmol/L Normal 3.5-5.1 [facility] Comment on above: Performed By: #### L [id number] ####[facility] ([facility])[address] [place] [address] Sodium [Moles/Vol] 137 mmol/L Normal 136-145 [facility] Comment on above: Performed By: #### L [id number] ####[facility] ([facility])[address] [place] [address] Urea nitrogen [Mass/Vol] 12 mg/dL Normal 7-25 [facility] Comment on above: Performed By: #### L [id number] ####[facility] ([facility])[address] [place] [address] UREA NITROGEN/CREATININ E (MASS RATIO) IN SER/PLAS 14.1 Normal [facility] Comment on above: Performed By: #### L [id number] ####[facility] ([facility])[address] [address] CBCon 03-23-2023 Erythrocyte distribution width (RBC) [Ratio] 13.0 % Normal 11.5-15.0 [facility] Comment on above: Performed By: #### L [id number] ####[facility] ([facility])[address] [place] [address] ERYTHROCYTE MEAN CORPUSCULAR HEMOGLOBIN CONCENTRATION (G/DL) BY AUTOMATED 34.5 g/dL Normal 32.0-35.0 [facility] Comment on above: Performed By: #### L [id number] ####[facility] ([facility])[address] [place] [address] Hematocrit (Bld) [Volume fraction] 41.4 % Normal 39.0-55.0 [facility] Comment on above: Performed By: #### L [id number] ####[facility] ([facility])[address] [place] [address] Hemoglobin (Bld) [Mass/Vol] 14.3 g/dL Normal 13.0-17.0 [facility] Comment on above: Performed By: #### L [id number] ####[facility] ([facility])[address] [place] [address] MCH (RBC) [Entitic mass] 30.4 pg Normal 27.0-33.0 [facility] Comment on above: Performed By: #### L [id number] ####[facility] [place] [address] MCV (RBC) [Entitic vol] 87.9 fL Normal 82.0-98.0 [facility] Comment on above: Performed By: #### L [id number] ####[facility] [place] [address] PLATELETS (10*3/UL) IN BLOOD AUTOMATED COUNT 243 10*3/uL Normal 150-400 [facility] Comment on above: Performed By: #### L [id number] ####[facility] ([facility])[address] [place] [address] RBC (Bld) [#/Vol] 4.71 10*6/uL Normal 4.20-5.70 [facility] Comment on above: Performed By: #### L [id number] ####[facility] ([facility])[address] [place] [address] WBC (Bld) [#/Vol] 6.84 10*3/uL Normal 4.00-10.60 [facility] Comment on above: Performed By: #### L [id number] ####[facility] ([facility])[address] [place] [address] CT HEAD WO IV CONTRASTon CT HEAD WO IV CONTRAST Normal [facility] CTA CHEST W AND/OR WO IV CON TRASTon 03-23-2023 CTA CHEST W AND/OR WO IV CONTRAST Normal [facility] DSon 03-23-2023 DS Normal [facility] 30on 03-22-2023 30 Normal [facility] 30 Normal [facility] ANESon 03-22-2023 ANES Normal [facility] APTTon 03-22-2023 ACTIVATED PARTIAL THROMBOPLASTIN TIME IN PPP BY COAGULATION ASSAY 36.2 Seconds High 25.0-35.0 [facility] Comment on above: Order Comment: Basel ine aPTT before initiating heparin infusion. Result Comment: Clin ical significance of the APTT is questionable in the presence of heparin. Performed By: #### L [id number] ####[facility] ([facility])[address] [place] [address] BASIC METABOLIC PANELon Anion gap [Moles/Vol] 9 mmol/L Normal 7-20 [facility] Comment on above: Performed By: #### L [id number] ####[facility] ([facility])[address] [place] [address] Calcium [Mass/Vol] 8.9 mg/dL Normal 8.6-10.3 [facility] Comment on above: Performed By: #### L [id number] ####[facility] ([facility])[address] [place] [address] Chloride [Moles/Vol] 111 mmol/L High 98-107 [facility] Comment on above: Performed By: #### L [id number] ####[facility] ([facility])[address] [place] [address] CO2 [Moles/Vol] 22 mmol/L Normal 21-31 [facility] Comment on above: Performed By: #### L [id number] ####[facility] ([facility])[address] [place] [address] Creatinine [Mass/Vol] 0.79 mg/dL Normal 0.70-1.30 [facility] Comment on above: Performed By: #### L [id number] ####[facility] ([facility])[address] [place] [address] GLOMERULAR FILTRATION RATE ML/MIN/1.73 SQ M.PREDICTED 96.2 mL/min/1.73m*2 Normal >60.0 [facility] Comment on above: Result Comment: [facility]???s estimated glomerular filtration rate (eGFR) will no [...] of individuals. Performed By: #### L [id number] ####[facility] ([facility])[address] [place] [address] Glucose [Mass/Vol] 112 mg/dL High 70-100 [facility] Comment on above: Performed By: #### L [id number] ####[facility] (BEAKER)[address] [place] [address] Potassium [Moles/Vol] 3.9 mmol/L Normal 3.5-5.1 [facility] Comment on above: Performed By: #### L [id number] ####[facility] (BEAKER)[address] [place] [address] Sodium [Moles/Vol] 138 mmol/L Normal 136-145 [facility] Comment on above: Performed By: #### L [id number] ####[facility] (BE[facility]ER)[address] [place] [address] Urea nitrogen [Mass/Vol] 12 mg/dL Normal 7-25 [facility] Comment on above: Performed By: #### L [id number] ####[facility] ([facility]ER)[address] [place] [address] UREA NITROGEN/CREATININ E (MASS RATIO) IN SER/PLAS 15.2 Normal [facility] Comment on above: Performed By: #### L [id number] ####[facility] (BE[facility]ER)[address] [place] [address] CBCon 03-22-2023 Erythrocyte distribution width (RBC) [Ratio] 13.2 % Normal 11.5-15.0 [facility] Comment on above: Performed By: #### L [id number] ####[facility] (BEAKER)[address] [place] [address] ERYTHROCYTE MEAN CORPUSCULAR HEMOGLOBIN CONCENTRATION (G/DL) BY AUTOMATED 33.7 g/dL Normal 32.0-35.0 [facility] Comment on above: Performed By: #### L [id number] ####[facility] (BE[facility]ER)[address] [place] [address] Hematocrit (Bld) [Volume fraction] 40.3 % Normal 39.0-55.0 [facility] Comment on above: Performed By: #### L [id number] ####[facility] (BEAKER)[address] [place] [address] Hemoglobin (Bld) [Mass/Vol] 13.6 g/dL Normal 13.0-17.0 [facility] Comment on above: Performed By: #### L [id number] ####[facility] ([facility])[address] [place] [address] MCH (RBC) [Entitic mass] 30.5 pg Normal 27.0-33.0 [facility] Comment on above: Performed By: #### L [id number] ####[facility] ([facility])[address] [place] [address] MCV (RBC) [Entitic vol] 90.4 fL Normal 82.0-98.0 [facility] Comment on above: Performed By: #### L [id number] ####[facility] ([facility])[address] [place] [address] PLATELETS (10*3/UL) IN BLOOD AUTOMATED COUNT 241 10*3/uL Normal 150-400 [facility] Comment on above: Performed By: #### L [id number] ####[facility] ([facility])[address] [place] [address] RBC (Bld) [#/Vol] 4.46 10*6/uL Normal 4.20-5.70 [facility] Comment on above: Performed By: #### L [id number] ####[facility] ([facility])[address] [place] [address] WBC (Bld) [#/Vol] 6.03 10*3/uL Normal 4.00-10.60 [facility] Comment on above: Performed By: #### L [id number] ####[facility] ([facility])[address] [place] [address] CONSULTon 03-22-2023 CONSULT Normal [facility] CONSULT Normal [facility] CT CHEST WO IV CONTRASTon CT CHEST WO IV CONTRAST Normal [facility] HEMOGLOBIN A1Con 03-22-2023 Glucose [Mass/Vol] 126 mg/dL Normal [facility] Comment on above: Performed By: #### L [id number] ####[facility] [place] [address] HbA1c (Bld) [Mass fraction] 6.0 % Normal 4.0-6.0 [facility] Comment on above: Performed By: #### L [id number] ####[facility] ([facility])[address] [facility] [place] [address] HPon 03-22-2023 HP H&P reviewed. The laurie putnam was examined and there are no changes to the H&P. Will proceed with coronary angiogram for chest pain and elevated high sensitivity troponin. Normal [facility] LIPID PANELon 03-22-2023 CHOL/HDL 4.9 mg/dL Normal [facility] Comment on above: Performed By: #### L [id number] ####[facility] ([facility])[address] , [place] [address] Cholesterol [Mass/Vol] 138 mg/dL Normal 120-200 [facility] Comment on above: Performed By: #### L [id number] ####[facility] ([facility])[address] , [place] [address] Magnesium [Mass/Vol] 107 mg/dL Normal 40-149 [facility] Comment on above: Result Comment: TRIG LYCERIDE REFERENCE RANGE:20 YEARS AND OLDER CARDIOVASCULAR RISKLESS THAN 150 mg/dL LOW [id number] TO 199 mg/dL BORDERLINE [id number] mg/dL AND GREATER HIGH RISK Performed By: #### L [id number] ####[facility] [place] [address] Magnesium [Mass/Vol] 89 mg/dL Normal 0-160 [facility] Comment on above: Performed By: #### L [id number] ####[facility] ([facility])[address] [place] [address] Magnesium [Mass/Vol] 28 mg/dL Normal 23-92 [facility] Comment on above: Performed By: #### L [id number] ####[facility] [facility] [place] [address] NON HDL CHOL. (LDL+VLDL) 110 Normal [facility] Comment on above: Performed By: #### L [id number] ####[facility] ([facility])[address] [place] [address] TOTAL VLDL-C 21 mg/dL Normal 0-40 [facility] Comment on above: Performed By: #### L [id number] ####[facility] ([facility])[address] [place] [address] MRSA/MSSA DNA NASALon 2022 MRSA DNA Negative Normal Negative [facility] Comment on above: Order Comment: Testi ng [...] preclude nasal colonization. Performed By: #### L [id number] ####[facility] ([facility])[address] [place] [address] MSSA DNA Negative Normal Negative [facility] Comment on above: Order Comment: Testi ng [...] preclude nasal colonization. Performed By: #### L [id number] ####[facility] ([facility])[address] [place] [address] TROPONIN Ion 03-22-2023 Troponin I.cardiac [Mass/Vol] 0.03 ng/mL Normal 0.00-0.04 [facility] Comment on above: Performed By: #### L [id number] ####[facility] ([facility])[address] [place] [address] Troponin I.cardiac [Mass/Vol] 0.04 ng/mL Normal 0.00-0.04 [facility] Comment on above: Performed By: #### L [id number] ####[facility] ([facility])[address] [place] [address] TSH3 REFLEX TO FT4on 023 THYROTROPIN (MIU/L) IN SER/PLAS BY DETECTION LIMIT <= 0.05 MIU/L 2.07 mIU/L Normal 0.34-5.60 [facility] Comment on above: Performed By: #### L [id number] ####[facility] ([facility])[address] [place] [address] URINALYSISon 03-22-2023 BILIRUBIN, TOTAL PRESENCE IN URINE Negative Normal Negative [facility] Comment on above: Performed By: #### L [id number] ####[facility] ([facility])[address] [place] [address] Clarity (U) Clear Normal Clear [facility] Comment on above: Performed By: #### L [id number] ####[facility] ([facility])[address] [place] [address] Color (U) Yellow Normal Yellow [facility] Comment on above: Performed By: #### L [id number] ####[facility] ([facility])[address] [place] [address] Glucose (U) [Mass/Vol] Negative Normal Negative [facility] Comment on above: Performed By: #### L [id number] ####[facility] ([facility])[address] [place] [address] HEMOGLOBIN PRESENCE IN URINE Small Abnormal Negative [facility] Comment on above: Performed By: #### L [id number] ####[facility] ([facility])[address] [place] [address] Ketones Ql (U) Negative Normal Negative [facility] Comment on above: Performed By: #### L [id number] ####[facility] ([facility])[address] [place] [address] LEUKOCYTE ESTERASE PRESENCE IN URINE BY TEST STRIP Negative Normal Negative [facility] Comment on above: Performed By: #### L [id number] ####[facility] ([facility])[address] [place] [address] NITRITE PRESENCE IN URINE Negative Normal Negative [facility] Comment on above: Performed By: #### L [id number] ####[facility] ([facility])[address] [place] [address] pH (U) 6.0 [pH] Normal 5.0-8.0 [facility] Comment on above: Performed By: #### L [id number] ####[facility] ([facility])[address] [place] [address] Protein (U) [Mass/Vol] Negative Normal Negative [facility] Comment on above: Performed By: #### L [id number] ####[facility] ([facility])[address] [place] [address] Specific gravity (U) [Rel density] 1.049 High 1.015-1.020 [facility] Comment on above: Performed By: #### L [id number] ####[facility] ([facility])[address] [place] [address] URINALYSIS MICROSCOPICon CASTS IN URINE Normal [facility] Comment on above: Performed By: #### L [id number] ####[facility] [place] [address] CRYSTALS IN URINE Normal [facility] Comment on above: Performed By: #### L [id number] ####[facility] [place] [address] RBC (#/HPF) IN URINE SEDIMENT 6-10 Abnormal None Seen [facility] Comment on above: Performed By: #### L [id number] ####[facility] [place] [address] SQUAMOUS EPITHELIAL CELLS (#/HPF) IN URINE SEDIMENT Few Abnormal None Seen, Occasional [facility] Comment on above: Performed By: #### L [id number] ####[facility] ([facility])[address] [place] [address] WBC (LEUKOCYTE) (#/HPF) IN URINE SEDIMENT None Seen Normal None Seen [facility] Comment on above: Performed By: #### L [id number] ####[facility] ([facility])[address] [place] [address] 30on 03-21-2023 30 Normal [facility] D-DIMER, QUANTITATIVEon 10- FIBRIN D-DIMER (UG/L FEU) IN PLATELET POOR PLASMA 0.36 mcg/mL FEU Normal 0.27-0.49 [facility] Comment on above: Order Comment: D-Dim er values of less than 0.50 ug/ml (FEU) are considered to be a negative predictor of thrombosis. However, the D-Dimer result should be used in conjunction with pretest probability and should not be used alone to diagnose a thrombotic event. 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 [address] Additional Instructions: w/PSA Patient Education Documentation recorded [...] Protein Urine Dipstick: Negative (01/29/23 14:37:00) Specific [place] Urine Dipstick: 1.025 (01/29/23 14:37:00) Urine Appearance Urine Dipstick: Clear (01/29/23 14:37:00) Urine Color Urine Dipstick: Yellow (01/29/23 14:37:00) pH Urine Dips (more content not included)... Normal [facility] Comment on above: Result Comment: Elec [...] by: GARCIA GALLEGOS Date: 2022-08-04 17:12 Normal [facility] CT LUNG CANCER SCREENINGon 0 07-26-2022 CT [...] DAVID EL Date: 2022-07-26 07:42 Normal [facility] INSULINon 07-26-2022 Insulin 4.0 uIU/mL Normal 2.6-24.9 [facility] Comment on above: Performed By: #### I NSULIN #### [facility] [address] [address] [address] Rehana Martinez CBC AUTO DIFFon 07-25-2022 BASO # 0.0 103/ul Normal 0.0-0.1 [facility] Comment on above: Performed By: #### C BC #### [facility] [address] [address] [address] Rehana Martinez Basophils/100 WBC (Bld) 0.2 % Normal 0.2-2.0 [facility] Comment on above: Performed By: #### C BC #### [facility] [address] [place] [address] Dr. Rehana Martinez EO # 0.1 103/ul Normal 0.0-0.7 [facility] Comment on above: Performed By: #### C BC #### [facility] [address] [place] [address] Dr. Rehana Martinez Eosinophils/100 WBC (Bld) 0.5 % Critically low 0.9-7.0 [facility] Comment on above: Performed By: #### C BC #### [facility] [address] [place] [address] Dr. Rehana Martinez Erythrocyte distribution width (RBC) [Ratio] 13.6 % Normal 11.0-15.0 [facility] Comment on above: Performed By: #### C BC #### [facility] [address] [place] [address] Dr. Rehana Martinez Hematocrit (Bld) [Volume fraction] 45.6 % Normal 42.0-54.0 [facility] Comment on above: Performed By: #### C BC #### [facility] [address] [place] [address] Dr. Rehana Martinez Hemoglobin (Bld) [Mass/Vol] 15.1 g/dL Normal 14.0-18.0 [facility] Comment on above: Performed By: #### C BC #### [facility] [address] [place] [address] Dr. Rehana Martinez IG # 0.04 10e3/ul Critically high 0.00-0.03 [facility] Comment on above: Performed By: #### C BC #### [facility] [address] [place] [address] Dr. Rehana Martinez IG % 0.4 % Normal 0.0-0.5 [facility] Comment on above: Performed By: #### C BC #### [facility] [address] [place] [address] Dr. Rehana Martinez LYMPH # 1.7 103/ul Normal 1.2-3.8 [facility] Comment on above: Performed By: #### C BC #### [facility] [address] [place] [address] Dr. Rehana Martinez Lymphocytes/100 WBC (Bld) 17.9 % Critically low 20.5-60.0 [facility] Comment on above: Performed By: #### C BC #### [facility] [address] [place] [address] Dr. Rehana Martinez MANUAL DIFF REQ NO Normal [facility] Comment on above: Performed By: #### C BC #### [facility] [address] [place] [address] Dr. Rehana Martinez MCH (RBC) [Entitic mass] 30.8 pg Normal 25.9-34.0 [facility] Comment on above: Performed By: #### C BC #### [facility] [address] [place] [address] Dr. Rehana Martinez MCHC (RBC) [Mass/Vol] 33.1 g/dL Normal 29.9-35.2 [facility] Comment on above: Performed By: #### C BC #### [facility] [address] [place] [address] Dr. Rehana Martinez MCV (RBC) [Entitic vol] 92.9 fL Normal 80.0-94.0 [facility] Comment on above: Performed By: #### C BC #### [facility] [address] [place] [address] Dr. Rehana Martinez MONO # 1.1 103/ul Critically high 0.3-0.8 [facility] Comment on above: Performed By: #### C BC #### [facility] [address] [place] [address] Dr. Rehana Martinez Monocytes/100 WBC (Bld) 11.2 % Normal 1.7-12.0 [facility] Comment on above: Performed By: #### C BC #### [facility] [address] [place] [address] Dr. Rehana Martinez NEUT # 6.7 103/ul Critically high 1.4-6.5 [facility] Comment on above: Performed By: #### C BC #### [facility] [address] [place], [place] [address] Dr. Rehana Martinez Neutrophils/100 WBC (Bld) 69.8 % Normal 43.0-75.0 [facility] Comment on above: Performed By: #### C BC #### [facility] [address] [address] [address] Rehana Martinez Platelet mean volume (Bld) [Entitic vol] 8.7 fL Critically low 9.5-13.5 [facility] Comment on above: Performed By: #### C BC #### [facility] [address] [address] [address] Rehana Martinez PLT 226 103/ul Normal 150-450 [facility] Comment on above: Performed By: #### C BC #### [facility] [address] [address] [address] Rehana Martinez RBC 4.91 106/ul Normal 4.70-6.10 [facility] Comment on above: Performed By: #### C BC #### [facility] [address] [address] [address] Rehana Martinez WBC 9.6 103/ul Normal 4.0-11.0 [facility] Comment on above: Performed By: #### C BC #### [facility] [address] [address] [address] Rehana Martinez FREE THYROXINE INDEX T7on FTI 3.37 Normal 1.30-4.50 [facility] Comment on above: Performed By: #### L IPID, CMP, TSH, URIC, T7 ####[facility] [address] [place], [place] [address]OzDr. Rehana Martinez T3U 37.0 % Normal 33.0-40.0 [facility] Comment on above: Performed By: #### L IPID, CMP, TSH, URIC, T7 ####[facility] [address] [place], [place] [address]AqDr. Rehana Martinez T4 [Mass/Vol] 9.10 ug/dL Normal 4.50-12.10 [facility] Comment on above: Performed By: #### L IPID, CMP, TSH, URIC, T7 ####[facility] [address] [id number][address] Rehana Martinez GLYCOHEMOGLOBIN A1Con 2022 ADA RECOMMENDATION SEE BELOW Normal [facility] Comment on above: Result Comment: ADA RECOMMENDED LIMIT 4.0 - 6.0 ADA THERAPEUTIC TARGET < 7.0 ACTION SUGGESTED > 7.0 Performed By: #### A 1C #### [facility] [address] [address] [address] Rehana Martinez Glucose [Mass/Vol] 128 mg/dL Normal [facility] Comment on above: Performed By: #### A 1C #### [facility] [address] [address] [address] Rehana Martinez HbA1c (Bld) [Mass fraction] 6.1 % Normal 4.5-6.2 [facility] Comment on above: Performed By: #### A 1C #### [facility] [address] [address] [address] Rehana Martinez LIPID PROFILEon 07-25-2022 CHOL-HDL RATIO NORM SEE BELOW Normal [facility] Comment on above: Result Comment: 3.3 - 4.4 LOW RISK 4.4 - 7.1 AVERAGE RISK 7.1 - 11.0 MODERATE RISK >11.0 HIGH RISK Performed By: #### L IPID, CMP, TSH, URIC, T7 ####[facility] [address] [id number] Martniez Cholesterol [Mass/Vol] 137 mg/dL Normal <=200 [facility] Comment on above: Performed By: #### L IPID, CMP, TSH, URIC, T7 ####[facility] [address] [address]DrStarr Martinez Cholesterol in HDL [Mass/Vol] 44 mg/dL Normal 40-60 [facility] Comment on above: Performed By: #### L IPID, CMP, TSH, URIC, T7 ####[facility] [address] [address]DrStarr Martinez Cholesterol in LDL [Mass/Vol] 75.6 mg/dL Normal [facility] Comment on above: Performed By: #### L IPID, CMP, TSH, URIC, T7 ####[facility] [address] [address]Dr. Rehana Martinez Cholesterol.total/ Cholesterol in HDL [Mass ratio] 3.1 {ratio} Normal [facility] Comment on above: Performed By: #### L IPID, CMP, TSH, URIC, T7 ####[facility] [address] [address]Dr. Rehana Martinez HDL NORMAL > or = 60 mg/dl - LO W CARDIOVASCULAR RISK <40 mg/dl - HIGH CARDIOVASCULAR RISK Normal [facility] Comment on above: Performed By: #### L IPID, CMP, TSH, URIC, T7 ####[facility] [address] [address]Dr. Rehana Martinez LDL CALC NORMAL SEE BELOW Normal [facility] Comment on above: Result Comment: <100 mg/dl OPTIMAL 100 - 129 mg/dl NEAR OR ABOVE OPTIMAL 130 - 159 mg/dl BORDERLINE HIGH 160 - 189 mg/dl HIGH >190 mg/dl VERY HIGH Performed By: #### L IPID, CMP, TSH, URIC, T7 ####[facility] [address] [address]Dr. Rehana Martinez Triglyceride [Mass/Vol] 87 mg/dL Normal <=150 [facility] Comment on above: Performed By: #### L IPID, CMP, TSH, URIC, T7 ####[facility] [address] [address]Dr. Rehana Martinez VLDL CALC 17.4 mg/dL Normal [facility] Comment on above: Performed By: #### L IPID, CMP, TSH, URIC, T7 ####[facility] [address] [address]Dr. Rehana Martinez PROF 14(COMP METB)on 023 Albumin [Mass/Vol] 3.3 g/dL Critically low 3.4-5.0 [facility] Comment on above: Performed By: #### L IPID, CMP, TSH, URIC, T7 ####[facility] [address] [address]Dr. Rehana Martinez Albumin/Globulin [Mass ratio] 0.9 {ratio} Normal [facility] Comment on above: Performed By: #### L IPID, CMP, TSH, URIC, T7 ####[facility] [address] [address]Dr. Rehana Martinez ALP [Catalytic activity/Vol] 105 U/L Normal 46-116 [facility] Comment on above: Performed By: #### L IPID, CMP, TSH, URIC, T7 ####[facility] [address] [address]Dr. Floriirene Martinez ALT [Catalytic activity/Vol] 16 U/L Normal 16-63 [facility] Comment on above: Performed By: #### L IPID, CMP, TSH, URIC, T7 ####[facility] [address] [place], [place] [address]Dr. Rehana Martinez Anion gap [Moles/Vol] 11.8 mmol/L Normal [facility] Comment on above: Performed By: #### L IPID, CMP, TSH, URIC, T7 ####[facility] [address] [place], [place] [address]Dr. Floriirene Martinez AST [Catalytic activity/Vol] 16 U/L Normal 15-37 [facility] Comment on above: Performed By: #### L IPID, CMP, TSH, URIC, T7 ####[facility] [address] [place], [place] [address]Dr. Rehana Martinez Bilirubin [Mass/Vol] 0.6 mg/dL Normal 0.2-1.0 [facility] Comment on above: Performed By: #### L IPID, CMP, TSH, URIC, T7 ####[facility] [address] [place], [place] [address]Dr. Rehana Martinez Calcium [Mass/Vol] 9.1 mg/dL Normal 8.5-10.1 [facility] Comment on above: Performed By: #### L IPID, CMP, TSH, URIC, T7 ####[facility] [address] [address]Dr. Rehana Martinez Chloride [Moles/Vol] 103 mmol/L Normal 98-107 [facility] Comment on above: Performed By: #### L IPID, CMP, TSH, URIC, T7 ####[facility] [address] [address]Dr. Rehana Martinez CO2 [Moles/Vol] 26.0 mmol/L Normal 21.0-32.0 [facility] Comment on above: Performed By: #### L IPID, CMP, TSH, URIC, T7 ####[facility] [address] [address]Dr. Rehana Martinez Creatinine [Mass/Vol] 0.94 mg/dL Normal 0.70-1.30 [facility] Comment on above: Performed By: #### L IPID, CMP, TSH, URIC, T7 ####[facility] [address] [place], [place] [address]Dr. Rehana Martinez EGFR-AF IVORIAN >60 Normal >=60 [facility] Comment on above: Performed By: #### L IPID, CMP, TSH, URIC, T7 ####[facility] [address] [place], [place] [address]Dr. Rehana Martinez EGFR-NON AF IVORIAN >60 Normal >=60 [facility] Comment on above: Performed By: #### L IPID, CMP, TSH, URIC, T7 ####[facility] [address] [place], [place] [address]Dr. Rehana Martinez Globulin (S) [Mass/Vol] 3.8 g/dL Normal [facility] Comment on above: Performed By: #### L IPID, CMP, TSH, URIC, T7 ####[facility] [address] [address]Dr. Rehana Martinez Glucose [Mass/Vol] 109 mg/dL Critically high 74-[address] [facility] Comment on above: Performed By: #### L IPID, CMP, TSH, URIC, T7 ####[facility] [address] [place], [place] [address]Dr. Rehana Martinez Potassium [Moles/Vol] 3.8 mmol/L Normal 3.5-5.1 [facility] Comment on above: Performed By: #### L IPID, CMP, TSH, URIC, T7 ####[facility] [address] [address]Dr. Rehana Martinez Protein [Mass/Vol] 7.1 g/dL Normal 6.4-8.2 [facility] Comment on above: Performed By: #### L IPID, CMP, TSH, URIC, T7 ####[facility] [address] [address]Dr. Rehana Martinez Sodium [Moles/Vol] 137 mmol/L Normal 136-145 [facility] Comment on above: Performed By: #### L IPID, CMP, TSH, URIC, T7 ####[facility] [address] [address]Dr. Rehana Martinez Urea nitrogen [Mass/Vol] 17.0 mg/dL Normal 7.0-18.0 [facility] Comment on above: Performed By: #### L IPID, CMP, TSH, URIC, T7 ####[facility] [address] [address]Dr. Rehana Martinez Urea nitrogen/Creatinin e [Mass ratio] 18.1 mg/mg Normal [facility] Comment on above: Performed By: #### L IPID, CMP, TSH, URIC, T7 ####[facility] [address] [address]Dr. Rehana Martinez TSHon 07-25-2022 TSH 1.619 uIU/mL Normal 0.358-3.740 [facility] Comment on above: Performed By: #### L IPID, CMP, TSH, URIC, T7 ####[facility] [address] [address]Dr. Rehana Martinez URIC ACID SERUMon 07-25-2022 Urate [Mass/Vol] 5.7 mg/dL Normal 3.5-7.2 [facility] Comment on above: Performed By: #### L IPID, CMP, TSH, URIC, T7 #### [facility] [address] [place], [place] [address] Dr. Rehana Martinez [facility] ([facility])on 04-06-2022 UVFISH & UC Diagnosis Info Invalid Interpretation Code [facility] Comment on above: Result Comment: A:Ur [...] on: 03/29/2022 10:51:08 Performed By: #### 1 [id number] ####[facility] [address] [id number] Patient Educationon 03-27-20 Patient Education Urology Benign [...] Follow these instructions at home: ? Take pegl-oor-pmuqqbo and prescription medicines only as told by [...] You d (more content not included)... Normal [facility] Urology Office/Clinic Noteon 03-27-2022 Urology Office/Clinic [...] [facility] [address], [place] [address]- Additional Instructions: 6 mos PSA free & [...] Social Hist (more content not included)... Normal [facility] Comment on above: Result Comment: Elec tronically Signed By: Casper RAUSCH MD\.br\Date and Time Signed: 03/27/22 10:34 EDT\.br\Electronically Co-Signed By: Inga Woodruff\.br\Date and Time Co-Signed: 03/27/22 10:32 EDT Coding Summary.on 03-22-2022 Coding Summary. CD:[id number] Gh0bWw+ PGhlYWQ+CN5UMRCqR44whDPohQ8 DR3uMYM0VLXDOTVUBZU6WDG5zjU O4LAcfN2SnpkGx VfdlrFQwIA91TSa5NYH1yPkrFLx wdK1lfFToW1b4TpMlCN48yZ62EW fwNYWcVdY1HgXtwbjnaGAr C6ppGmDlyBIhKbv+PHRhYmxlIHd oCZZnIBqtEIBvUjPmbBosPY3fIh 9yZGVyLWNvbGxhcHNlOiBj a1xwDMSuKQkcHF1wpUguP8WsuRV 1EGVcv4t0Xg07oGK+ERBnTWA0zM eiOSvjn995IcVdn7ruZCW4 pOPrSKlyBOC7L82ob3J6PUUgQRA zZID1hBP4tO5inJkhugtiP1VgnA RzLwG1ADZ8lTSglR2otMze ddtpiJ7fXav+E35WFT4PUBEIAX2 CNep7L5IyRhafeQC+US96MJMgKW 51pXKrmPTpe4wpuMb0HzDu PAMrISH7pDlaPBvmo9MjKVQcH38 ypYDix7H1QVHgcLzxuKQzHpCgpR M3jU6rVZyzbaubn2hqxmcc Ewggz5ovfb85uC68H70vESuxEWI nXKV5ZCZlVEHfrSoxna5mgW0eGc 8+ZWevv8lbz1onhBf9HsHu YALacrVroBcsWJJ4g6GqGh19M9S wrUhna6HzUky7rt41lTGzu2I7aH D1HIkxEOBxfK6kXIosAjF9 EYFlSgCpbW61cLBkAPdfPj7efPp uoWeyIJ1jSVSplpiyMUTonF2wHA QvlGTynLdqUU5sNGYhhnzr p363KkLqQXY7KAVmxTXhL5WvoM1 hJgDiCCIcIFAzH0CtcNZzAJzaK3 63YGioOvD1RBFmetSoA6Js KKOnwNheRwQ4r6U5Yp3Nb9Hploy xJOX3IWjxVDQrCuX2ClBiOgZ3K4 DsGhj6GLCtoDvxXD2kT3Ff YVOkehjcxukosTJ2MCKnJPRjoQ2 5hJUqLNrgOo8px2A6z114FNOaTQ JmoX51Il1dlMpeHTVxbBWT iT1lwnfco2fvgehaEpPmQHEyLYr 8RDh4UFXfiRerLtAdWEF1PjX2SH X0aFSmhU1hbBdlgmubfN7p Oyc+A96isJ7ePTG9HBJ0ktobLBW uruRyQC95BC88E7HnFjrimJRstF U+GHAlcmIsqBtcQN7mXgHw a3vdy0SsCUsmS8ZyKUJoKDvcZct 9HELrBLB5aGJ8oI1jMYRtXGrlv1 V2yHX5B0KpdqKpyf4mv0el QAYmSZsfO18eqRFab5I4GSTjfMX 8RAZdgManFpDngE08Bue+PGNvbG miz5RtTfkbf8xsw1dhhQs8 PiByRHAyysIvnZyjBSJ3o9HqIi3 8C60eGWfeIIKcSYQgXEAzNIRaoO jweh9pyH4kHe3+PGNvbCB3 kBS1jV4eOVAsKeI0IOgsQ717VlK ekUHqQpfgk6ppe2nsaUb7XnJpAA FeybQvwDnpGHF9g7JkPo43 O05nQVbySAUjNNWoORKiJYJmwGt gxt4saG0zXg8+OB9ym4bcjn67cZ 48dHI+JRMtZKI7pFggGVfc HBFzqW9vCAjpGpK5JFZeVpKejX0 6qAKxCSqeFw7biMixcLosHV5qLO Clcuktv419LgUgs5uzGKDo mEIrUEmmLSC3O36fn5U7IAMtAJA rFQO8fAE2dA6qfBuanvwdpOZliF nwkgDujVurVBhdTJbrI033 IHRvcDsnPlBhdGllbnQgTmFtZTo 4K7QzHtc2WDSpePcxMI6zmVDaKD qfLs4siDnmrPyvQY7nRJFm ackma238GkDiv8iaERPwlZUsJSn cJLL9T68mr8A6ECRdZTNrOIM0yV W3gW9vqYwfuajqrOOjrMfk kaLwqDadOIoqYCxvH374PYHyeCn dXhRsbgXgZXDoeHB6CC36GK34oT Nak9V9qYA9C3RjPYQysyar pobjeWV0XDLhMLVslW36Tw3siAc dOw0lYPGhFQN5EJJydKZwW2YxeK 8eYnYyVGCeSYPhY5IarJTv PJujB041JEftTbJ3SJMmsjJfT8C hYFNfvQwkOvK8d5K0Ie3XN1Q1BQ 63SR23vZBuw6Y1rWT0A6Sn CUDyqxuwgqpfnZV8KMJqJFRbiH8 2Eb6qoCsqVa9mZAWbOQX4ZEDflK NcP2AebR5dPaYsHIOxWQTp U2YlbJWxLTkwA087LTvgDfJ1ZXP apmEbM4HgKJIozJlpSkI0i7R8Nl 5LYTr9BG07KX84pQAjz0M0 kIL4S2CkZVNppwiffsvukBZ8NQP rBHCkkU42Yc1ciPomUf1gAHGhTU F6HANsvHOeD1AofA8lVhFs KKNmPKIeV2NneNOnZJaqF955HDx xOdH6ZQXsypOkO2GoIFIziZeiKx G6h7R4Ny5PZTEhZV50IEP2 jUF1BZ58GC58A6AaMclxaJPifEZ +PHRhYmxlIHdpZHRoPScxMDAlJy FinAzsFQ1sPn5kRPKiCWYh gDyipOPaCbUwg9vyWDMvWOvxCU9 foMmgI5BevPS3LDDit6x9Gh95L7 3zY1ZwrII+SWDgeTV0qMV1 uN7sKrVrPhS2TZmzP328UeNlnAJ rXcgio7ugs2xjcFl2IoM9DSQmda XurJugHNE6k6SsYl44C86t IHdpZHRoPSIxNSUiIHZhbGlnbj0 ncT5bBn2+SDUefSA8cVV3aU7cZf GfEcP8IYnpI870DiZopVRy Dfgoa5ivf6ywgQy6GeIeLEOilrN lpAbgGRL1g2KqEr05Q0DsvKhuy7 SlCqv8fa02rLPoy7Y0aGE4 Y4DkGXOflihgxLBnxOitNG1wRGT gjmadSIIswJ4zFICuG5d3AeZoIr E0QVkgP0TptyI3SGArbREz QOslZRF6E70vp2E5CFSjFHQdJDE 5cCK3aN7wvAeiuhhawLBwyVmbow FjzHsuLKteWVloP297EANm tVocZYUwwX8nLCWfdPLzjTfyCF2 kMHNewbjtCfBCEoVqC9DgOLrDQS 4gQTwvdGQ+HZJpVWR9zPvk IIyyJPStoM7nZYUnD6g4WhJsRwO 5PEkxZ2OmSKYurbzeOf10sA7mNc XzZhL1AKkqT1PcbkL7YHFb uAJbDHymLOR2T44dp8G3ALRbENR yXNS7vZS2dG3qyEwlqpojtMIzgB xadxRpsLhdDEusHLasO857 SCQceEzqXvL5IqQjFqA4IJQ2C3S zWxv2LCTvkXnbTC2rqJLkIQsiRa 0pvPgxcYjoXL0yMBXahhul JGNuxF9fVVAeuUTweQfkMT0xQQL uyubyz518FvWxNWB5KUThpUAvL8 BxpG1vRaDzNQHuOZVmO1Zc aESlAYizJ575EDmcBjA1AEBckiT fC1OyYOLylOqyMsQ4i9D4Un43VH BZZWFyczwvdGQ+PHRkIHN0 tLyzCOolWVKlcJ5eBQLpM7u7GwA uUsC7FHxxA5IvSDFwxnmjDe88aE 1eKfQaIuM4FAkvJ6ZihkM9 ZPKvkQXwUEmzROF5S49ih5U3SXB jATDvBWZ7eWK0eF1czImvnyyvlD VmdDsgdmVydGljYWwtYWxp L998YIJgeZmrXq4ytRZ8E5XuJrz 2WESoxHzrPH7btOUhSUyaIv2ydZ vseRvwNO7pCLEfqkovQZXq oR5mSTXhqDQnjQvqZE4fCNKxran yu117XvLgUDB7BOEnmBWpW6VgyE 1zDyIxLEKqNPMgG2WagFZm LSjhB936SHemSeN8HJXxbrXxQ1T pUMBbnFkxOcJ5w4J0Gi3WbWSvUT TpPP27MP74TC25N3ZnJuof dGFibGU+PHRhYmxlIHdpZHRoPSc qQZTsZjRnrNerXC4eSq1mQBYrQX KapDjcvXKcDlTjw4zsGWHb KUlpMF2vxKrxK2XlpJB6RLEyv0e 3Dn77C40nS5LanHL+RAFgyBU1cE I2xD0oAwMxHpE4PDcmF734 JvLcmTAvCvwmp4xxc1ogjNh5BnX uLETgrqNcsVpbDIZ9c0HmEh59P1 9sIHdpZHRoPSIyMCUiIHZh sAlqlc6adE9nCp3+AETehBZ3eYQ 4hR4kIzDiAfM7QAnjT106HjVnyP OxTsubT83rH3ZpcMK+PHRy Gcd5EAZlxIsaGG1nhETnSKetEb9 oRPA8EcZbKiJnDZaoJ5JkSXMniq utxyvxrVG9VLImESOzjB18 Bn9sbVfxUd0bTAFpNPT0UBLnkIZ yQ2SboI4xMnSlZUXrZIAtU3MycA OlLSfhB490MGtxDvR6LACt ewMuE8DgCQBrlBdtIzF7d3P4Hu7 QyWmomYIpIB8yDsZgOQi6M2BbGw j9TJBgcDhlWR1mkHYsEJhu Ky5ivEojrRncIP9oFXHgxgvzq89 6YvRom6jgGXHovNHnXCaeVJY3W4 9xz9D2EUSkNUBuJWW4dWL8 eD5beTjooowwkZLqzDccfuIwtWl rYRlqMMrzB137JSFedVmwCeWGLs n3S6WuBag0HNYgtTsyZE0e jFWqCFxaGw8qaAgogPeeXA9dNAN klejwp675DtWyd8fvANSuyZCoSE xpVKD4K49it3R5VIJsCHHd YIS4xAG8aA5xeIppgqqsyVIbtPo xofOjtKvhXWaaDEmeM403LGJksV qqTk8JKqv0B1RaCbe6DQXg jEnpOU4kmCRhXLniPe3weKnpmHn kLU2kIPFhkvaao743BcEkb5pmIG CekPGqIPabMRQ7B05jc7R1 JMDqYHKjAHI6bLF7sK0rrTxoeyh gbGVmdDsgdmVydGljYWwtYWxpZ2 46IHRvcDsnPlBheWVyOjwv dGQ+SP94zs52Z3SkJisgKtn4REL eSQG7kZN1mL7rLIRtTGhyc8K4hW H4M9XpbdQemm9jo3cnNEAq ZTog (more content not included)... Normal [facility] Consent for Procedure/Surger yon 03-21-2022 Consent for Procedure/Surgery [id number]:127 Normal [facility] Consent for Treatmenton Consent for Treatment [id number]:127 [facility] Inpatient Patient Summaryon 03-21-2022 Inpatient Patient Summary [place] [id number] Clinical Summary Person Information Name: GUI ORTIZ SR Age: 67 Years : 1955 Sex: Male PCP: Angella Jaquez MD Marital Status: Phone: [phone] Race: White Ethnicity: or Language: Maldivian Visit Id: Visit 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 / ELEVATED PSA / HEMATURIA Speciality: Acuity: Enc Type: Outpatient Med Service: Surgery Arrival: 03/21/2022 10:25:04 Discharge: Dispo Type: Address: [address] [place] [address] [phone] Provider Notes: Diagnosis: Problems Active Asymptomatic microscopic [...] Follow up: With: Address: When: Casper RAUSCH [address] [place] [address] [employer] (1) Within 5 to 7 days With: Address: When: [place] [address] [employer] (1) Type Location Start [facility] [place] [facility] [place] 05/22/2022 11:00 AM 05/22/2022 11:15 AM Confirmed Patient Education Information: Normal [facility] IntraOperative Documentson 1 IntraOperative Documents [id number]:127 [facility] Main OR Intraoperative Recor don 03-21-2022 Main OR Intraoperative Record IntraOp Document Type FTURO Summary Primary Physician: Casper RAUSCH MD Finalized Date/Time: 03/21/22 11:42:35 Pt. Name: GUI ORTIZ SR/Sex: 1955 Male Med Rec #: [id number] Physician: Casper RAUSCH MD Financial #: [id number] Pt. Type: O Room/Bed: / Admit/Disch: 03/21/22 [...] Usha Arevalo Role Performed Surgeon - Primary Automatic Lathe Operator - Primary Scrub - Primary Time In [...] SONIA Cavanaugh RN, Ruthann 03/21/22 11:42 Normal [facility] Main OR Preoperative Recordo n 03-21-2022 Main OR Preoperative Record Holding Area Document Type FTURO Summary Primary Physician: Casper RAUSCH MD Finalized Date/Time: 03/21/22 11:17:09 Pt. Name: GUI ORTIZ SR /Sex: 1955 Male Med Rec #: [id number] Physician: Casper RAUSCH MD Financial #: [id number] Pt. Type: O Room/Bed: / Admit/Disch: 03/21/22 [...] Complaints of Pain: No Skin Integrity Intact, Idalou, Warm, & Dry Vitals - EU Blood Pressure 100/70 Pulse 59 bpm Respirations 16 br/min SPO2 98 % Additional CHANEL EASON Reviewed Yes Specimens Collected Last Modified By: SONIA Cavanaugh RN, Ruthann 03/21/22 11:17:07 General Comments: Temp 36.4 Temporal Finalized By: Mao EASON, Irina SCOTT Document Signatures Signed By: Adwoa Little LPN 03/21/22 10:38 SONIA Cavanaugh RN, Ruthann 03/21/22 11:17 Normal [facility] Operative Reporton 2 Operative Report Patient: SARINA [...] with antibiotic coverage, Follow up arranged. Normal [facility] Comment on above: Result Comment: Elec tronically Signed By: Casper RAUSCH MD\.br\Date and Time Signed: 03/21/22 11:28 EDT Outpatient Surgery Discharge Instructionon 03-21-2022 Outpatient Surgery Discharge Instruction [address] [address] Patient Discharge Instructions PERSON INFORMATION [...] Follow up: With: Address: When: Casper RAUSCH [address] [place] [address] [place] [address] Business (1) Within 5 to 7 days With: Address: When: Casper [address] [address] [facility] (1) Type Location Start [facility] Office Visit [facility] [place] 05/22/2022 11:00 AM 05/22/2022 11:15 AM Confirmed [...] you. Thank you for choosing [facility] Normal [facility] Patient Educationon 03-21-20 Patient Education Normal [facility] UroVysion Fish and Urine Cyt o ([facility])on 03-21-2022 [facility] Method of Extraction Voided Normal [facility] Comment on above: Performed By: #### 1 [id number] ####[facility] [address] [place] [address] [facility] Number of Jars 1 Invalid Interpretation Code [facility] Comment on above: Performed By: #### 1 [id number] ####[facility] [address] [place] [address] [facility] Specimen Urine Normal [facility] Comment on above: Performed By: #### 1 [id number] ####[facility] [address] [place] [address] [facility] Type of Service Technical Only Normal [facility] Comment on above: Performed By: #### 1 [id number] ####[facility] [address] [place] [address] Lab Reportson 03-15-2022 Lab Reports [id number]:127 Normal [facility] PSA, FREE AND TOTAL RATIOon 03-13-2022 % Free PSA 15.5 % Normal [facility] Comment on above: Result Comment: The table [...] men. Performed By: #### P SAFREE #### [facility] [address] [place] [address] Dr. Rehana Martinez Prostate specific Ag [Mass/Vol] 4.9 ng/mL Critically high 0.0-4.0 [facility] Comment on above: Result Comment: Arnoldo CHOPRAIA methodology. . According to the [employer], Serum PSA should decrease and [...] disease. Performed By: #### P SAFREE #### [facility] [address] [place] [address] Dr. Rehana Martinez PSA, Free 0.76 ng/mL Normal N/A [facility] Comment on above: Result Comment: Arnoldo ALEJANDRO methodology. Performed By: #### P SAFREE #### [facility] [address] [place] [address] Dr. Rehana Martinez CREATININEon 12-14-2021 Creatinine [Mass/Vol] 1.01 mg/dL Normal 0.70-1.30 [facility] Comment on above: Performed By: #### C MAXINE #### [facility] [address] [place] [address] Dr. Rehana Martinez EGFR-AF IVORIAN >60 Normal >=60 [facility] Comment on above: Performed By: #### C MAXINE #### [facility] [address] [place] [address] Dr. Rehana Martinez EGFR-NON AF IVORIAN >60 Normal >=60 [facility] Comment on above: Performed By: #### C MAXINE #### [facility] [address] [place] [address] ABD/PELV W CONon [...] by: BRANDIE RUDD Date: 2021-12-14 11:36 Normal [facility] Vital Signs Date Time Vital Sign Value Performing Clinician Yunier nunez 03-27-2022 10:11-0400 Blood Pressure Location [facility] 03-27-2022 10:11-0400 Diastolic blood pressure 57 mm[Hg] [facility] 03-27-2022 10:11-0400 Heart rate 57 /min [facility] 03-27-2022 10:11-0400 Respiratory rate 16 /min [facility] 03-27-2022 10:11-0400 Systolic blood pressure 154 mm[Hg] Casper RAUSCH [facility] 12-05-2021 08:16-0400 Blood Pressure Location Monica Mondragon Jr. [facility] 12-05-2021 08:16-0400 Diastolic blood pressure 84 mm[Hg] Monica Mondragon Jr. [facility] 12-05-2021 08:16-0400 Heart rate 75 /min Monica Mondragon Jr. [facility] 12-05-2021 08:16-0400 Systolic blood pressure 118 mm[Hg] Monica Mondragon Jr. [facility] Encounters Encounter Date Encounter Type Care Provider Facility Start: 02-11-2024 ambulatory ELIZABETH Teague ty:PRICILA [facility]avis Start: 05-16-2023 ambulatory [facility] Start: 05-14-2023 End: 05-14-2023 ambulatory VALENTINA CABRERA [facility] Start: 05-06-2023 Evaluation and manag ement of inpatient ELINA [facility] Start: 05-03-2023 End: 05-04-2023 ambulatory [facility] Start: 05-01-2023 Evaluation and manag ement of inpatient [facility] Start: 04-30-2023 Evaluation and manag ement of inpatient [facility] Start: 04-30-2023 Evaluation and manag ement of inpatient [facility] Start: 04-30-2023 Evaluation and manag ement of inpatient [facility] Start: 04-29-2023 Evaluation and manag ement of inpatient [facility] Start: 04-27-2023 Evaluation and manag ement of inpatient [facility] Start: 04-26-2023 Evaluation and manag ement of inpatient [facility] Start: 04-25-2023 Evaluation and manag ement of inpatient [facility] Start: 04-25-2023 Evaluation and manag ement of inpatient KAREY J [facility] Start: 04-24-2023 Evaluation and manag ement of inpatient [facility] Start: 04-24-2023 Evaluation and manag ement of inpatient [facility] Start: 04-23-2023 [facility]: 04-23-[facility]23 Evaluation and [facility] Start: 04-23-2023 End: 04-24-2023 Evaluation and management of inpatient [facility] Start: 04-23-2023 Evaluation and manag ement of inpatient KAREY Dhaliwal [facility] Start: 04-23-2023 [facility]: 04-22-2023 Evaluation and manag ement of inpatient [facility] Start: 04-22-2023 Evaluation and manag ement of inpatient [facility] Start: 04-22-2023 Evaluation and manag ement of inpatient [facility] Start: 04-22-2023 End: 05-01-2023 Evaluation and management of inpatient [facility] Start: 04-09-2023 End: 04-10-2023 Encounter for preprocedural cardiovascular examination [facility] Start: 04-09-2023 End: 04-10-2023 ambulatory [facility] Start: 04-04-2023 ambulatory [facility] Start: 03-23-2023 Evaluation and manag ement of inpatient KAREY Dhaliwal [facility] Start: 03-23-2023 Evaluation and manag ement of inpatient KAREY Dhaliwal [facility] Start: 03-23-2023 Evaluation and manag ement of inpatient DOMENIC [facility] Start: 03-22-2023 Evaluation and manag ement of inpatient JENNA [facility] Start: 03-22-2023 Evaluation and manag ement of inpatient RODGER [facility] Start: 03-21-2023 End: 03-23-2023 Evaluation and management of inpatient [facility] Start: 01-29-2023 End: 01-30-2023 ambulatory ELIZABETH LINDSAY Facility: [place] Start: 01-29-2023 End: 01-29-2023 Patient encounter procedure ELIZABETH LINDSAY [facility] Start: 09-11-2022 ambulatory [facility] Start: 09-06-2022 End: 09-07-2022 ambulatory [facility] Start: 09-04-2022 ambulatory [facility] Start: 08-06-2022 End: 08-07-2022 ambulatory [facility] Start: 08-04-2022 End: 08-05-[address] ANGELLA JAQUEZ . Facility: Start: 07-25-2022 End: 07-26-[address] ANGELLA JAQUEZ . Facility: Start: 03-27-2022 End: 03-28-2022 ambulatory Casper RAUSCH Facility:[facility] Start: 03-27-2022 End: 03-27-2022 Patient encounter procedure Casper RAUSCH [facility] Start: 03-21-2022 End: 03-22-2022 ambulatory Casper RAUSCH [place] Start: 03-21-2022 End: 03-21-2022 Patient encounter procedure Casper RAUSCH [facility] Start: 03-12-2022 End: 03-13-[address] CASPER RAUSCH Facility: Start: 02-05-2022 End: 02-05-2022 Patient encounter procedure Monica Mondragon Jr. [facility] [place] Start: 12-14-2021 End: 12-15-2021 ambulatory MONICA MONDRAGON JR Facility: Start: 12-05-2021 End: 12-05-2021 Patient encounter procedure Monica Mondragon Jr. [facility] Procedures Date Procedure Procedure Detail Performing Clinician Start: 05-16-2023 Follow-up visit MICHAEL IE PATRICK Start: 05-14-2023 Follow-up visit MICHAEL IE PATRICK Start: 04-04-2023 Follow-up visit MICHAEL IE PATRICK Start: 09-11-2022 Follow-up visit MICHAEL IE PATRICK Start: 09-04-2022 Follow-up visit MICHAEL IE PATRICK Start: 07-25-[address] FABIOLA JAQUEZ . Comment on above: Performed By: #### [facility] #### [facility] [address] [place] [address] Dr. Rehana Martinez Start: 03-21-2022 Cystoscopy ELIZABETH JOHNSTON Start: 12-14-[address] FABIOLA JAQUEZ . Comment on above: Performed By: #### P SAD ####[facility] [address] [place], [place] [address]GhStarr Martinez Start: 01-23-2018 Cystoscopy Monica stephen Jr. Comment on above: 07/22/09, 01/23/18 07/22/09, 01/23/18 Immunizations Immunization Date Immunization Notes Care Provider Cipriano moody 06-20-2021 SARS-CoV-2 (COVID-19 ) mRNA BNT-162b2 vax Casper RAUSCH [facility] 09-13-2020 SARS-CoV-2 (COVID-19 ) Ad26 vaccine, recombinant Monica Mondragon Jr. [facility] 08-22-2020 SARS-CoV-2 (COVID-19 ) Ad26 vaccine, recombinant Monica Mondragon Jr. [facility] NEGATED: Highlighted row has not occurred!12-05-2021 influenza virus vaccine, unspecified formulation Monica Mondragon Jr. [facility] Payers Date Payer Category Payer Medicare [id number] 1960 Unknown [id number] 1955 Unknown [id number] 2.16.84 [id number] 1955 Unknown [id number] 2.16.84 [id number] 1955 Unknown [id number] 2.16.84 [id number] 1955 Unknown [id number] 2.16.84 [id number] 1955 Unknown [id number] 2.16.8 [id number] 1955 Unknown [id number] 2.16.8 [id number] 1955 Unknown [id number] 2.16.8 [id number] 1955 Unknown [id number] 2.16.8 [id number] Social History Date Type Detail Facility Start: 12-05-2021 Tobacco smoking status Heavy t obacco smoker (finding) [facility] Sex Assigned At Male [facility] Functional Status Date Assessment Result Facility 01-29-2023 Functional Status N/A [facility] 03-27-2022 Functional Status N/A [facility] 03-15-2022 Functional Status N/A [facility] 12-05-2021 Functional Status N/A [facility] Clinical Notes 05-23-2021 to 05-16-2023 LaboratoryLaboratoryLaboratoryLaboratory Note Date & Type Note Facility 05-16-2023 Note [facility] 05-16-2023 Note [facility] 05-16-2023 Note [facility] 05-14-2023 Note [facility] 05-14-2023 Note [facility] 05-01-2023 Note Patient provided a c opy of the AVS. All questions answered. Patient discharged with belongings and taken down with transport via wheelchair and family at bedside. [facility] 05-01-2023 Note [facility] 05-01-2023 Note [facility] 05-01-2023 Note [facility] 05-01-2023 Note [facility] 04-30-2023 Note [facility] 04-30-2023 Note [facility] 04-29-2023 Note [facility] 04-29-2023 Note [facility] 04-29-2023 Note [facility] 04-29-2023 Note [facility] 04-28-2023 Note [facility] 04-28-2023 Note [facility] 04-27-2023 Note [facility] 04-27-2023 Note [facility] 04-27-2023 Note [facility] 04-27-2023 Note [facility] 04-26-2023 Note [facility] 04-26-2023 Note [facility] 04-26-2023 Note [facility] 04-26-2023 Note [facility] 04-26-2023 Note [facility] 04-26-2023 Note [facility] 04-25-2023 Note [facility] 04-25-2023 Note Attempted to call wi fe to get information and give updates. Was unable to reach her, will continue to try. [facility] 04-25-2023 Note [facility] 04-25-2023 Note [facility] 04-25-2023 Note [facility] 04-24-2023 Note Patient is still on vent support. Per RN was off and placed back on yesterday. Consult for s/p CABG. SW to follow. [facility] 04-24-2023 Note [facility] 04-24-2023 Note Physical Therapy Patient intubated/sedated at this time. PT will check back and follow as appropriate. Stella Bustos, CHANTEL [facility] 04-24-2023 Note [facility] 04-24-2023 Note Occupational Therapy Cancel Note Reason: Patient intubated and sedated at this time. OT will continue to follow and will re-attempt as able. Time in: 0808 Check no charge Thelma Jin MOT, OTR/L, CLT [facility] 04-24-2023 Note [facility] 04-24-2023 Note [facility] 04-23-2023 Note [facility] 04-23-2023 Note [facility] 04-23-2023 Note [facility] 04-23-2023 Note [facility] 04-23-2023 Note [facility] 04-22-2023 Note TRIGGER: PRESSURE 1:1 FULLY AUGMENTED [facility] 04-22-2023 Note TRIGGER: PRESSURE 1:1 FULLY AUGMENTED [facility] 04-22-2023 Note INSERTED WITHOUT COM PLICATION USING STERILE TECHNIQUE; DRAINING CLEAR YELLOW URINE; TO BE MONITORED BY ANESTHESIA FOR DURATION OF THE CASE [facility] 04-22-2023 Note [facility] 04-22-2023 Note [facility] 04-22-2023 Note [facility] 04-09-2023 Note [facility] 04-09-2023 Note [facility] 04-04-2023 Note [facility] 04-01-2023 Note [facility] 03-23-2023 Note [facility] 03-23-2023 Note [facility] 03-22-2023 Note [facility] 03-22-2023 Note [facility] 09-11-2022 Note [facility] 09-04-2022 Note I reviewed with the resident the medical history and the resident???s findings on physical examination. I discussed with the resident the patient???s diagnosis and concur with the treatment plan as documented in the resident note. Shmuel Vásquez MD [facility] 09-04-2022 Note [facility] 03-27-2022 Hospital Discharge instructions Patient Education 03/27/2022 [...] urethra. Follow these instructions at home: Take easp-cfm-syvmttq and prescription medicines only as told by [...] 06/03/2006 Document Revised: 04/28/2019 Document Reviewed: 07/08/2017 [employer] Patient Education 2020 [employer]. Follow Up Care 03/21/2022 11:25:28 With:Giancarlo Campbell MD, ORLIN Pena Address: [facility] [address] [place] [address]- When: Unknown [facility] 03-21-2022 Note [id number]:127 [facility] 02-27-2022 Hospital Discharge instructions Follow Up Care 02/27/2022 13:20:12 With:Casper RAUSCH Address: [address] [place] [address] [address]- Business (1) When:5 to 7 days With:Casper RAUSCH Address: [address] [place] [address]- Business (1) When: Unknown [facility] 12-05-2021 Hospital Discharge instructions Patient Education 12/05/2021 [...] Follow these instructions at home: Medicines Take qbku-uzm-fdhtzwm and prescription medicines only as told by [...] or the blood stops without treatment. Take uvzg-amn-shcmlhh and prescription medicines only as told by your health care provider. Drink enough fluid to keep your urine clear or pale yellow. This information is not intended to replace advice given to you by your health care provider. Make sure you discuss any questions you have with your health care provider. Document Released: 06/03/2006 Document Revised: 10/28/2019 Document Reviewed: 07/06/2017 [employer] Patient Education 2020 [employer]. Follow Up Care 05/30/2021 15:33:59 With:Monica Mondragon Jr., MD, URO Address: [facility] [address] [place] [address] [phone] When: Unknown [facility] 05-23-2021 Hospital Discharge instructions Follow Up Care 05/23/2021 11:27:47 With:ELIZABETH LINDSAY PA-C, URL Address: [facility] [address]ie [address] [place] [address] When:Within 1 Year(s) Comments:w/PSA [facility] Evaluation + Plan note Future Appointments Appointment Date:05/22/2022 11:00:00 AM Scheduled Provider:Monica Mondragon Jr., MD Location:[facility] Appointment Type:URO Office Visit Diagnostic Tests PendingPSA Total 12/05/21 Future Scheduled TestsPSA Free & Total 05/30/21 [facility] Evaluation + Plan note Future Appointments Appointment Date:05/22/2022 11:00:00 AM Scheduled Provider:Monica Mondragon Jr., MD Location:[facility] Appointment Type:URO Office Visit Future Scheduled TestsPSA Free & Total 05/30/21 [facility] Evaluation + Plan note Future Appointments Appointment Date:03/27/2022 09:45:00 AM Scheduled Provider:Casper RAUSCH MD Location:[facility] Appointment Type:URO Office Visit Appointment Date:05/22/2022 11:00:00 AM Scheduled Provider:Monica Mondragon Jr., MD Location:[facility] Appointment Type:URO Office Visit Diagnostic Tests PendingUroVysion Fish and Urine Cyto ([facility]) 03/21/22 Future Scheduled TestsPSA Free & Total 05/30/21 [facility] [facility] Evaluation + Plan note Future Appointments Appointment Date:09/18/2022 09:15:00 AM Scheduled Provider:Monica Mondragon Jr., MD Location:[facility] Appointment Type:URO Office Visit Diagnostic Tests PendingPSA Free & Total 06/17/22 Future Scheduled TestsPSA Free & Total 05/30/21 [facility] Evaluation + Plan note Future Appointments Appointment Date:02/11/2024 08:30:00 AM Scheduled Provider:ELIZABETH LINDSAY PA-C Location:[facility] Appointment Type:URO Office Visit Diagnostic Tests PendingPSA Total 01/29/23 [facility] Hospital course Narrative No data available for this section [facility] Discharge instructions No data available for this section [facility] Progress note No data available for this section [facility] [place] Summary Purpose Family History No Family History Records FoundNo Family History Records FoundNo Family History Records Found Advance Directives No Advanced Directives Records FoundNo Advanced Directives Records FoundNo Advanced Directives Records Found Additional Source Comments Care Team (unrecognized sect ion and content) Personnel Name: Angella Jaquez MD Address: [address] [place] [address] Personnel Name: Angella Jaquez MD Address: [address] [place] [address] Personnel Name: Angella Jaquez MD Address: Address: [address] [place] [address] Personnel Name: Angella Jaquez MD Address: Address: [address] [place] [address] Personnel Name: Angella Jaquez MD Address: Address: [address] [place] [address] (unrecognized sect ion and content) No Status Records FoundNo Status Records FoundNo Status Records Found INFORMATION SOURCE (unrecogn ized section and content) DATE CREATED AUTHOR 08/10/2022 [facility] DATE CREATED AUTHOR AUTHOR'S ORGANIZ ATION 02/13/2023 [facility] DATE CREATED AUTHOR AUTHOR'S ORGANIZ ATION 06/26/2023 [facility] FOR RECORDS PERTAINING TO PATIENTS WHO ARE [...] BE BASED ON THE PRIMARY CLINICAL RECORDS. [employer] provides no warranty or guarantee of the accuracy or completeness of information in this document.
[2023-06-27 19:29] VITALS: PULSE 70
--- NOTE | 2023-06-27 19:30 | XR_ITS ---
The [address] [address] Patient Name: ESEQUIEL ORTIZ MRN: [id number] date: 1955 Sex: M Assigned Patient Location: ER Current Patient Location: ER Accession/Order Number: [id number] Exam Date: 06/27/2023 19:40 Report Date: 06/27/2023 20:02 At the request of: MARSHALL LILLY Procedure: XR chest 1V EXAM: XR chest 1V at 1937 hours HISTORY: Chest pain COMPARISON: 05/06/2023 TECHNIQUE: AP upright portable chest x-ray FINDINGS: There is been interval clearing of the left lung base. There is slight blunting of the right costophrenic angle, indicating very small effusion. No acute infiltrate, effusion or pneumothorax is otherwise identified. The heart is not enlarged and the vasculature is not distended. Sternal wire sutures are present. The osseous structures are grossly intact. XR/XR chest 1V IMPRESSION: Interval clearing of the left lung base. A small right pleural effusion persists. There is no evidence of a focal infiltrate or overt cardiac decompensation. Electronically authenticated by: STEVEN SEGOVIA Date: 06/27/2023 20:02
--- NOTE | 2023-06-27 19:30 | ECG_ITS ---
The [facility] Test Date: 2023-06-27 Pat Name: ESEQUIEL ORTIZ Department: Room: - Gender: Male [employer]: : 1955 Requested By: ANGELLA JAQUEZ Order Number: [id number] Reading MD: ANGELLA JAQUEZ Measurements Intervals [place] Rate: 70 P: 63 [place]: 154 QRS: 46 QRSD: 84 T: 136 QT: 378 QTc: 400 Interpretive Statements 1100 Sinus rhythm 1102 Sinus arrhythmia 3624 Possible inferior myocardial infarction, age undetermined 4364 Twave abnormality, possible anterolateral ischemia 9150 abnormal ECG Compared to ECG 05/06/2023 16:08:51 Myocardial infarct finding now present T-wave abnormality no longer present Possible ischemia still present Electronically Signed On 07-01-2023 6:45:15 EST by ANGELLA JAQUEZ
--- NOTE | 2023-06-27 19:32 | ED.CHESTPAI1 ---
Documented by User: SAMMIE Jiménez 06/27/23 21:49 HPI - Chest Pain General Chief Complaint: Chest Pain Stated Complaint: CP Time Seen by Provider: 06/27/23 19:27 Source: patient Mode of arrival: walk-in History of Present Illness HPI narrative: Patient is a 68-year-old male with a history of coronary artery disease, CABG x 3, Diabetes, hypertension, hypercholesterolemia presents to the emergency department for with his for the evaluation of chest pain that began 10 minutes ago. Patient states the pain comes and goes. He has no shortness of breath, fevers, chills, cough. No peripheral edema. He states he had similar pain several nights ago which resolved. 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 Risk Factors Coronary artery disease risk factors: diabetes, hyperlipidemia and hypertension Related Data Home Medications Medication Instructions Recorded Confirmed pantoprazole 40 mg tablet,delayed 40 mg PO DAILY 03/21/23 05/06/23 release tamsulosin 0.4 mg capsule 0.4 mg PO Q24H 03/21/23 05/06/23 acetaminophen 500 mg tablet 500 mg PO Q6H PRN pain 05/06/23 05/06/23 ascorbic acid (vitamin C) 500 mg 1 g PO QAM 05/06/23 05/06/23 tablet (Vitamin C) aspirin 81 mg chewable tablet 1 tab PO QAM 05/06/23 05/06/23 atorvastatin 40 mg tablet 40 mg PO QAM 05/06/23 05/06/23 clopidogrel 75 mg tablet 75 mg PO QAM 05/06/23 05/06/23 colchicine 0.6 mg tablet 0.6 mg PO QAM 05/06/23 05/07/23 docusate sodium 100 mg capsule 100 mg PO QAM 05/06/23 05/06/23 ferrous sulfate 325 mg (65 mg 325 mg PO QAM 05/06/23 05/06/23 iron) tablet (FeroSul) metoprolol tartrate 25 mg tablet 12.5 mg PO Q12H 05/06/23 05/06/23 oxycodone 5 mg tablet 5 mg PO Q6H PRN pain 05/06/23 05/06/23 vitamin E (dl, acetate) 180 mg 180 mg PO QAM 05/06/23 05/06/23 (400 unit) capsule Previous Rx's Medication Instructions Recorded furosemide 20 mg tablet (Lasix) 20 mg PO DAILY #30 tabs 05/07/23 levofloxacin 500 mg tablet 500 mg PO DAILY 10 days #10 tabs 05/07/23 Allergies Allergy/AdvReac Type Severity Reaction Status Date / Time No Known Drug Allergies Allergy Verified 03/21/23 10:21 Review of Systems ROS Constitutional Denies: fever or chills Ears, nose, mouth, and throat Denies: throat pain or nasal congestion Cardiovascular Reports: chest pain Respiratory Denies: shortness of breath or cough Gastrointestinal Denies: abdominal pain, nausea or vomiting Genitourinary Denies: painful urination Musculoskeletal Denies: back pain Integumentary/Breast Denies: rash Neurological Denies: headache Endocrine Denies: excessive urination [facility] Medical History (Updated 06/27/23 @ 21:49 by SAMMIE Jiménez) PVD (peripheral vascular disease) ?I73.9 - Peripheral vascular disease, unspecified (ICD-10) Hypertension ?I10 - Essential (primary) hypertension (ICD-10) CAD (coronary artery disease) ?I25.10 - Atherosclerotic heart disease of [place] coronary artery without angina pectoris (ICD-10) LLL pneumonia ?J18.9 - Pneumonia, unspecified organism (ICD-10) Acute non-ST elevation myocardial infarction (NSTEMI) ?I21.4 - Non-ST elevation (NSTEMI) myocardial infarction (ICD-10) Surgical History (Updated 05/06/23 @ 21:44 by Lesley Mike) History of open heart surgery ?Z98.890 - Other specified postprocedural states (ICD-10) Social History Within the past year, how often did you have a drink containing alcohol: never Score interpretation: A score less than 4 is consistent with normal alcohol consumption. Smoking status: Former smoker Non-prescribed substance use: denies use Exam Narrative Exam Narrative: Gen.: Awake, alert, in no distress Head: Normocephalic, atraumatic ENT: Moist mucous membranes Respiratory: No respiratory distress, lungs clear bilaterally Cardio: Regular rate and rhythm Gastrointestinal: Abdomen is soft, nondistended and nontender to palpation Extremities: Moves extremities equally, no Peripheral edema Psych: Normal mood and affect Neuro: No focal neuro deficit Skin: Warm, dry, intact Constitutional Vital Signs, click to edit/add: Last Vital Signs Temp 97.8 F 06/27/23 19:22 Pulse 62 06/27/23 21:54 Resp 22 06/27/23 21:54 BP 164/83 H 06/27/23 21:54 Pulse Ox 99 06/27/23 21:54 O2 Del Method Room Air 06/27/23 21:54 Course Vital Signs Vital signs: Vital Signs Temperature 97.8 F 06/27/23 19:22 Pulse Rate 87 06/27/23 19:22 Respiratory Rate 18 06/27/23 19:22 Blood Pressure 160/100 H 06/27/23 19:22 Pulse Oximetry 99 06/27/23 19:22 Oxygen Delivery Method Room Air 06/27/23 19:22 Temperature 97.8 F 06/27/23 19:22 Pulse Rate 62 06/27/23 21:54 Respiratory Rate 22 06/27/23 21:54 Blood Pressure 164/83 H 06/27/23 21:54 Pulse Oximetry 99 06/27/23 21:54 Oxygen Delivery Method Room Air 06/27/23 21:54 MDM - Chest Pain MDM Narrative Medical decision making narrative: Cardiac workup was completed, patient with no complaints of chest pain in the ER. He was given aspirin, lab studies are within normal limits and chest x-ray shows improving pleural effusion. I reevaluated the patient after his lab studies were complete, it was recommended based on his age and risk factors that we admit him to the hospital for observation. Patient states he does not want to stay in the hospital. He was agreeable to a repeat high-sensitivity troponin. This lab value is normal. Patient will follow closely with his PCP. He did verbalize understanding that he should return to the emergency department if he develops any return of chest pain, worsening chest pressure, shortness of breath or any other concerning symptoms to him and his . Medical Records Data Attestation: I reviewed the patient's medical records. Lab Data Attestation: I reviewed the patient's lab results. Labs: Lab Results 06/27/23 06/27/23 Range/Units 19:35 21:04 WBC 6.4 (4.0-11.0) 10^3/uL RBC 4.53 L (4.70-6.10) 10^6/uL Hgb 13.2 L (14.0-18.0) g/dL Hct 40.8 L (42.0-54.0) % MCV 90.1 (80.0-94.0) fL MCH 29.1 (25.9-34.0) pg MCHC 32.4 (29.9-35.2) g/dL RDW 13.6 (11.0-15.0) % Plt Count 260 (150-450) 10^3/uL MPV 9.1 L (9.5-13.5) fL Neut % (Auto) 50.5 (43.0-75.0) % Lymph % (Auto) 35.1 (20.5-60.0) % [place] % (Auto) 10.1 (1.7-12.0) % Eos % (Auto) 3.8 (0.9-7.0) % Baso % (Auto) 0.3 (0.2-2.0) % Neut # (Auto) 3.2 (1.4-6.5) 10^3/uL Lymph # (Auto) 2.2 (1.2-3.8) 10^3/uL [place] # (Auto) 0.6 (0.3-0.8) 10^3/uL Eos # (Auto) 0.2 (0.0-0.7) 10^3/uL Baso # (Auto) 0.0 (0.0-0.1) 10^3/uL Abs Immat Gran (auto) 0.01 (0.00-0.03) 10^3/uL Imm/Tot Granulo (auto) 0.2 (0.0-0.5) % PT 10.7 (9.0-11.6) sec INR 1.01 Sodium 138 (136-145) mmol/L Potassium 3.7 (3.5-5.1) mmol/L Chloride 104 (98-107) mmol/L Carbon Dioxide 28.8 (21.0-32.0) mmol/L Anion Gap 8.9 BUN 16.0 (7.0-18.0) mg/dL Creatinine 0.99 (0.70-1.30) mg/dL Est GFR ( Amer) >60 (>=60) Est GFR (Non-Af Amer) >60 (>=60) BUN/Creatinine Ratio 16.2 Glucose 170 H (74-106) mg/dL Calcium 9.0 (8.5-10.1) mg/dL Total Bilirubin 0.3 (0.2-1.0) mg/dL AST 13 L (15-37) U/L ALT 19 (16-63) U/L Alkaline Phosphatase 150 H (46-116) U/L Troponin I High Sens 14.1 20.6 (4.0-76.1) pg/mL NT-Pro-B Natriuret Pep 1176.0 H (<=900.0) pg/mL Total Protein 7.6 (6.4-8.2) g/dL Albumin 3.3 L (3.4-5.0) g/dL Globulin 4.3 g/dL Albumin/Globulin Ratio 0.8 Imaging Data Chest x-ray: Attestation: I have reviewed the pertinent imaging results. Radiologist's impression: ITS Impressions Chest X-Ray 06/27/23 19:30 IMPRESSION: Interval clearing of the left lung base. A small right pleural effusion persists. There is no evidence of a focal infiltrate or overt cardiac decompensation. Electronically authenticated by: STEVEN SEGOVIA Date: 06/27/2023 20:02 ECG Data Attestation: I personally reviewed and interpreted this ECG as follows: (Normal sinus rhythm at a rate of 70, no acute ST elevation, T wave inversion in the lateral leads. No ectopy. EKG reviewed by attending physician) Heart Score History: Slightly/Non-Suspicious ECG: NS Repolarization Age: >65 years Risk Factors: >3 Risk Factors/ HX of CAD:2 Troponin: <Normal Limit Total Heart Score Recommendations & Risks:: 5 Discharge Plan Discharge Chief Complaint: Chest Pain Clinical Impression: Chest pain Patient Disposition: Home, Self-Care Time of Disposition Decision: 21:48 Condition: Good Mode of Transportation: Private Vehicle Prescriptions / Home Meds: No Action pantoprazole 40 mg tablet,delayed release (DR/EC) 40 mg PO DAILY tamsulosin 0.4 mg capsule 0.4 mg PO Q24H acetaminophen 500 mg tablet 500 mg PO Q6H PRN (Reason: pain) aspirin 81 mg tablet,chewable 1 tab PO QAM atorvastatin 40 mg tablet 40 mg PO QAM clopidogrel 75 mg tablet 75 mg PO QAM colchicine 0.6 mg tablet 0.6 mg PO QAM Rx Instructions: started 05/01/23 x 10 days docusate sodium 100 mg capsule 100 mg PO QAM ascorbic acid (vitamin C) [Vitamin C] 500 mg tablet 1 g PO QAM ferrous sulfate [FeroSul] 325 mg (65 mg iron) tablet 325 mg PO QAM metoprolol tartrate 25 mg tablet 12.5 mg PO Q12H oxycodone 5 mg tablet 5 mg PO Q6H PRN (Reason: pain) vitamin E (dl, acetate) 180 mg (400 unit) capsule 180 mg PO QAM furosemide [Lasix] 20 mg tablet 20 mg PO DAILY Qty: 30 11RF levofloxacin 500 mg tablet 500 mg PO DAILY 10 Days Qty: 10 0RF Instructions: Chest Pain (ED) Stand Alone Forms: Portal Instructions Referrals: Tyson Nunes MD [Primary Care Provider] - 1 week Discharge Date/Time: 06/27/23 21:56 Documented by User: Rosetta Cassidy MD 06/28/23 01:32 HPI - Chest Pain General Chief Complaint: Chest Pain Stated Complaint: CP Time Seen by Provider: 06/27/23 19:27 Related Data Home Medications Medication Instructions Recorded Confirmed pantoprazole 40 mg tablet,delayed 40 mg PO DAILY 03/21/23 05/06/23 release tamsulosin 0.4 mg capsule 0.4 mg PO Q24H 03/21/23 05/06/23 acetaminophen 500 mg tablet 500 mg PO Q6H PRN pain 05/06/23 05/06/23 ascorbic acid (vitamin C) 500 mg 1 g PO QAM 05/06/23 05/06/23 tablet (Vitamin C) aspirin 81 mg chewable tablet 1 tab PO QAM 05/06/23 05/06/23 atorvastatin 40 mg tablet 40 mg PO QAM 05/06/23 05/06/23 clopidogrel 75 mg tablet 75 mg PO QAM 05/06/23 05/06/23 colchicine 0.6 mg tablet 0.6 mg PO QAM 05/06/23 05/07/23 docusate sodium 100 mg capsule 100 mg PO QAM 05/06/23 05/06/23 ferrous sulfate 325 mg (65 mg 325 mg PO QAM 05/06/23 05/06/23 iron) tablet (FeroSul) metoprolol tartrate 25 mg tablet 12.5 mg PO Q12H 05/06/23 05/06/23 oxycodone 5 mg tablet 5 mg PO Q6H PRN pain 05/06/23 05/06/23 vitamin E (dl, acetate) 180 mg 180 mg PO QAM 05/06/23 05/06/23 (400 unit) capsule Previous Rx's Medication Instructions Recorded furosemide 20 mg tablet (Lasix) 20 mg PO DAILY #30 tabs 05/07/23 levofloxacin 500 mg tablet 500 mg PO DAILY 10 days #10 tabs 05/07/23 Allergies Allergy/AdvReac Type Severity Reaction Status Date / Time No Known Drug Allergies Allergy Verified 03/21/23 10:21 [facility] Medical History (Updated 06/27/23 @ 21:49 by SAMMIE Jiménez) PVD (peripheral vascular disease) ?I73.9 - Peripheral vascular disease, unspecified (ICD-10) Hypertension ?I10 - Essential (primary) hypertension (ICD-10) CAD (coronary artery disease) ?I25.10 - Atherosclerotic heart disease of [place] coronary artery without angina pectoris (ICD-10) LLL pneumonia ?J18.9 - Pneumonia, unspecified organism (ICD-10) Acute non-ST elevation myocardial infarction (NSTEMI) ?I21.4 - Non-ST elevation (NSTEMI) myocardial infarction (ICD-10) Surgical History (Updated 05/06/23 @ 21:44 by Lesley Mike) History of open heart surgery ?Z98.890 - Other specified postprocedural states (ICD-10) Social History Within the past year, how often did you have a drink containing alcohol: never Score interpretation: A score less than 4 is consistent with normal alcohol consumption. Smoking status: Former smoker Non-prescribed substance use: denies use Exam Constitutional Vital Signs, click to edit/add: Last Vital Signs Temp 97.8 F 06/27/23 19:22 Pulse 62 06/27/23 21:54 Resp 22 06/27/23 21:54 BP 164/83 H 06/27/23 21:54 Pulse Ox 99 06/27/23 21:54 O2 Del Method Room Air 06/27/23 21:54 Course Vital Signs Vital signs: Vital Signs Temperature 97.8 F 06/27/23 19:22 Pulse Rate 87 06/27/23 19:22 Respiratory Rate 18 06/27/23 19:22 Blood Pressure 160/100 H 06/27/23 19:22 Pulse Oximetry 99 06/27/23 19:22 Oxygen Delivery Method Room Air 06/27/23 19:22 Temperature 97.8 F 06/27/23 19:22 Pulse Rate 62 06/27/23 21:54 Respiratory Rate 22 06/27/23 21:54 Blood Pressure 164/83 H 06/27/23 21:54 Pulse Oximetry 99 06/27/23 21:54 Oxygen Delivery Method Room Air 06/27/23 21:54 MDM - Chest Pain Lab Data Labs: Lab Results 06/27/23 06/27/23 Range/Units 19:35 21:04 WBC 6.4 (4.0-11.0) 10^3/uL RBC 4.53 L (4.70-6.10) 10^6/uL Hgb 13.2 L (14.0-18.0) g/dL Hct 40.8 L (42.0-54.0) % MCV 90.1 (80.0-94.0) fL MCH 29.1 (25.9-34.0) pg MCHC 32.4 (29.9-35.2) g/dL RDW 13.6 (11.0-15.0) % Plt Count 260 (150-450) 10^3/uL MPV 9.1 L (9.5-13.5) fL Neut % (Auto) 50.5 (43.0-75.0) % Lymph % (Auto) 35.1 (20.5-60.0) % [place] % (Auto) 10.1 (1.7-12.0) % Eos % (Auto) 3.8 (0.9-7.0) % Baso % (Auto) 0.3 (0.2-2.0) % Neut # (Auto) 3.2 (1.4-6.5) 10^3/uL Lymph # (Auto) 2.2 (1.2-3.8) 10^3/uL [place] # (Auto) 0.6 (0.3-0.8) 10^3/uL Eos # (Auto) 0.2 (0.0-0.7) 10^3/uL Baso # (Auto) 0.0 (0.0-0.1) 10^3/uL Abs Immat Gran (auto) 0.01 (0.00-0.03) 10^3/uL Imm/Tot Granulo (auto) 0.2 (0.0-0.5) % PT 10.7 (9.0-11.6) sec INR 1.01 Sodium 138 (136-145) mmol/L Potassium 3.7 (3.5-5.1) mmol/L Chloride 104 (98-107) mmol/L Carbon Dioxide 28.8 (21.0-32.0) mmol/L Anion Gap 8.9 BUN 16.0 (7.0-18.0) mg/dL Creatinine 0.99 (0.70-1.30) mg/dL Est GFR ( Amer) >60 (>=60) Est GFR (Non-Af Amer) >60 (>=60) BUN/Creatinine Ratio 16.2 Glucose 170 H (74-106) mg/dL Calcium 9.0 (8.5-10.1) mg/dL Total Bilirubin 0.3 (0.2-1.0) mg/dL AST 13 L (15-37) U/L ALT 19 (16-63) U/L Alkaline Phosphatase 150 H (46-116) U/L Troponin I High Sens 14.1 20.6 (4.0-76.1) pg/mL NT-Pro-B Natriuret Pep 1176.0 H (<=900.0) pg/mL Total Protein 7.6 (6.4-8.2) g/dL Albumin 3.3 L (3.4-5.0) g/dL Globulin 4.3 g/dL Albumin/Globulin Ratio 0.8 Imaging Data Chest x-ray: Radiologist's impression: ITS Impressions Chest X-Ray 06/27/23 19:30 IMPRESSION: Interval clearing of the left lung base. A small right pleural effusion persists. There is no evidence of a focal infiltrate or overt cardiac decompensation. Electronically authenticated by: STEVEN SEGOVIA Date: 06/27/2023 20:02 Heart Score Total Heart Score Recommendations & Risks:: 5 Discharge Plan Discharge Chief Complaint: Chest Pain Clinical Impression: Chest pain Patient Disposition: Home, Self-Care Time of Disposition Decision: 21:48 Condition: Good Mode of Transportation: Private Vehicle Prescriptions / Home Meds: No Action pantoprazole 40 mg tablet,delayed release (DR/EC) 40 mg PO DAILY tamsulosin 0.4 mg capsule 0.4 mg PO Q24H acetaminophen 500 mg tablet 500 mg PO Q6H PRN (Reason: pain) aspirin 81 mg tablet,chewable 1 tab PO QAM atorvastatin 40 mg tablet 40 mg PO QAM clopidogrel 75 mg tablet 75 mg PO QAM colchicine 0.6 mg tablet 0.6 mg PO QAM Rx Instructions: started 05/01/23 x 10 days docusate sodium 100 mg capsule 100 mg PO QAM ascorbic acid (vitamin C) [Vitamin C] 500 mg tablet 1 g PO QAM ferrous sulfate [FeroSul] 325 mg (65 mg iron) tablet 325 mg PO QAM metoprolol tartrate 25 mg tablet 12.5 mg PO Q12H oxycodone 5 mg tablet 5 mg PO Q6H PRN (Reason: pain) vitamin E (dl, acetate) 180 mg (400 unit) capsule 180 mg PO QAM furosemide [Lasix] 20 mg tablet 20 mg PO DAILY Qty: 30 11RF levofloxacin 500 mg tablet 500 mg PO DAILY 10 Days Qty: 10 0RF Instructions: Chest Pain (ED) Stand Alone Forms: Portal Instructions Referrals: Tyson Nunes MD [Primary Care Provider] - 1 week Discharge Date/Time: 06/27/23 21:56
[2023-06-27 19:46] LABS: Basophils Percent Auto 0.3 % (0.2-2.0); Eosinophils Absolute Auto 0.2 10^3/uL (0.0-0.7); Eosinophils Percent Auto 3.8 % (0.9-7.0); Hematocrit 40.8 % (42.0-54.0); Hemoglobin 13.2 g/dL (14.0-18.0); Immature Granulocytes Abs Auto 0.01 10^3/uL (0.00-0.03); Immature Granulocytes Pct Auto 0.2 % (0.0-0.5); Lymphocytes Absolute Auto 2.2 10^3/uL (1.2-3.8); Lymphocytes Percent Auto 35.1 % (20.5-60.0); Mean Corpuscular HGB Conc 32.4 g/dL (29.9-35.2); Mean Corpuscular Hemoglobin 29.1 pg (25.9-34.0); Mean Corpuscular Volume 90.1 fL (80.0-94.0); Mean Platelet Volume 9.1 fL (9.5-13.5); Monocytes Absolute Auto 0.6 10^3/uL (0.3-0.8); Monocytes Percent Auto 10.1 % (1.7-12.0); Neutrophils Absolute Auto 3.2 10^3/uL (1.4-6.5); Neutrophils Percent Auto 50.5 % (43.0-75.0); Platelet Count 260 10^3/uL (150-450); Red Blood Count 4.53 10^6/uL (4.70-6.10); Red Cell Distribution Width 13.6 % (11.0-15.0); White Blood Count 6.4 10^3/uL (4.0-11.0)
[2023-06-27] MEDS: ASPIRIN 81 MG TAB.CHEW 162 MG PO (19:52)
[2023-06-27 20:07] LABS: INR 1.01; Prothrombin Time 10.7 sec (9.0-11.6)
[2023-06-27 20:11] LABS: Alanine Aminotransferase 19 U/L (16-63); Albumin Globulin Ratio 0.8; Albumin Level 3.3 g/dL (3.4-5.0); Alkaline Phosphatase 150 U/L (46-116); Anion Gap 8.9; Aspartate Amino Transferase 13 U/L (15-37); BUN Creatinine Ratio 16.2; Bilirubin Total 0.3 mg/dL (0.2-1.0); Carbon Dioxide 28.8 mmol/L (21.0-32.0); Chloride 104 mmol/L (98-107); Estimated GFR (African America >60 (>=60); Estimated GFR (Non-African Ame >60 (>=60); Globulin 4.3 g/dL; Glucose 170 mg/dL (74-106); Potassium 3.7 mmol/L (3.5-5.1); Sodium 138 mmol/L (136-145); Total Protein 7.6 g/dL (6.4-8.2)
[2023-06-27 20:17] LABS: Troponin I High Sensitivity 14.1 pg/mL (4.0-76.1)
[2023-06-27 21:10] VITALS: BP 153/70; PULSE 67; RESP 14; O2SAT 100
[2023-06-27 21:38] LABS: Troponin I High Sensitivity 20.6 pg/mL (4.0-76.1)
[2023-06-27 21:54] VITALS: BP 164/83; PULSE 62; RESP 22; O2SAT 99
== END 2023-06-27 21:56 | disposition home or self-care (01) ==
PROVIDERS: Physician Assistant; Emergency Provider Emergency Medicine; PCP Family Medicine
DX: R07.9 Chest pain, unspecified (principal); I25.10 Atherosclerotic heart disease of native coronary artery without angina pectoris; E11.9 Type 2 diabetes mellitus without complications; I10 Essential (primary) hypertension; E78.00 Pure hypercholesterolemia, unspecified; Z79.899 Other long term (current) drug therapy; Z79.82 Long term (current) use of aspirin; Z95.1 Presence of aortocoronary bypass graft; I73.9 Peripheral vascular disease, unspecified; I25.2 Old myocardial infarction; Z87.01 Personal history of pneumonia (recurrent); Z87.891 Personal history of nicotine dependence
CPT/HCPCS: 36415; 71045; 80053; 83880; 84484; 85025; 85610; 93005; 99285

== ENCOUNTER 2023-07-05 11:05 | Emergency (ER) | payer MEDICARE, SELFPAY ==
[2023-07-05] VITALS (26 sets, daily range): BP systolic 80–197; BP diastolic 55–164; PULSE 62–98; RESP 14–27; TEMP 36.4; O2SAT 97–100; BMI 23.2
--- OUTSIDE RECORDS SUMMARY | 2023-07-05 11:11 | XMS_ITS | CCD ---
Author Name Unknown Address [address] [place] [address] Organization [facility] Care Team Providers Care Mingler Operator Name Role Phone Angella Jaquez Primary Care Physician [phone] PERALES Admitting Unavailable HOY [...] RICE, Casper Grace Admitting Unavailable RICE, Casper Garce Referring Unavailable RICE, Casper Grace Attending Unavailable DOMENIC NGUYEN Attending Unavailable SHOAIBSUSANNE RICHARDSON Admitting Unavailable YANN VILLALBA Referring Unavailable ELINA HOLLEY Referring Unavailable CHAITANYA AMES Attending Unavailable PETER, CHAITANYA Admitting Unavailable SAEID [...] Medication Allergies] Propensity to adverse reactions (disorder) [facility] Medications Current Medications Medication Drug [...] Daily, # 90 cap(s), Refills(s) 3, Pharmacy: [facility]/pharmacy #[id number], 162, cm, 12/05/21 8:20:00 EDT, [...] procedure, # 2 cap(s), Refills(s) 0, Pharmacy: [facility]/pharmacy #[id number], 162, cm, 12/05/21 8:20:00 EDT, [...] disease (8 sources) 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; Translations: [Unstable [...] on: 05/16/2023 03:51 PM Modules accepted: Orders [facility] 29 Addended by: PASCUAL VELARDE on: 05/16/2023 03:50 PM Modules accepted: Orders [facility] Follow-Upon 05-16-2023 Follow-Up Normal [facility] 36on 05-03-2023 36 Normal [facility] Telephoneon 05-03-2023 Telephone [phone] Gui Ortiz 1955 M Date Provider Department Agency 05/03/2023 SAEID MARISCAL HVCVASENDA[place] [facility] Family History Family history unknown: Yes Normal [facility] 36on 05-02-2023 36 Normal [facility] 30on 05-01-2023 30 Normal [facility] 30 Normal [facility] BASIC METABOLIC PANELon 04-17 Anion gap [Moles/Vol] 11 mmol/L Normal 7-20 [facility] Comment on above: Performed By: #### L [id number] ####[facility] (BEAKER)[address] [place] [address] Calcium [Mass/Vol] 8.4 mg/dL Low 8.6-10.3 [facility] Comment on above: Performed By: #### L [id number] ####[facility] (BEAKER)[address] [place] [address] Chloride [Moles/Vol] 109 mmol/L High 98-107 [facility] Comment on above: Performed By: #### L [id number] ####[facility] (BEAKER)[address] [place] [address] CO2 [Moles/Vol] 22 mmol/L Normal 21-31 [facility] Comment on above: Performed By: #### L [id number] ####[facility] ([facility])[address] [place] [address] Creatinine [Mass/Vol] 0.62 mg/dL Low 0.70-1.30 [facility] Comment on above: Performed By: #### L [id number] ####[facility] ([facility])[address] [place] [address] GLOMERULAR FILTRATION RATE ML/MIN/1.73 SQ M.PREDICTED 103.5 mL/min/1.73m*2 Normal >60.0 [facility] Comment on above: Result Comment: The [facility]???s estimated glomerular filtration rate (eGFR) will no [...] of individuals. Performed By: #### L [id number] ####[facility] ([facility])[address] [place] [address] Glucose [Mass/Vol] 98 mg/dL Normal 70-100 [facility] Comment on above: Performed By: #### L [id number] ####[facility] ([facility])[address] [place] [address] Potassium [Moles/Vol] 3.7 mmol/L Normal 3.5-5.1 [facility] Comment on above: Performed By: #### L [id number] ####[facility] ([facility])[address] [place] [address] Sodium [Moles/Vol] 138 mmol/L Normal 136-145 [facility] Comment on above: Performed By: #### L [id number] ####[facility] (BEAKER)[address] [place] [address] Urea nitrogen [Mass/Vol] 12 mg/dL Normal 7-25 [facility] Comment on above: Performed By: #### L [id number] ####[facility] ([facility] [place] [address] UREA NITROGEN/CREATININ E (MASS RATIO) IN SER/PLAS 19.4 Normal [facility] Comment on above: Performed By: #### L [id number] ####[facility] ([facility] [place] [address] CBCon 05-01-2023 Erythrocyte distribution width (RBC) [Ratio] 14.5 % Normal 11.5-15.0 [facility] Comment on above: Performed By: #### L [id number] ####[facility] ([facility])[address], [place] [address] ERYTHROCYTE MEAN CORPUSCULAR HEMOGLOBIN CONCENTRATION (G/DL) BY AUTOMATED 33.2 g/dL Normal 32.0-35.0 [facility] Comment on above: Performed By: #### L [id number] ####[facility] ([facility])[address], [place] [address] Hematocrit (Bld) [Volume fraction] 27.4 % Low 39.0-55.0 [facility] Comment on above: Performed By: #### L [id number] ####[facility] ([facility], [place] [address] Hemoglobin (Bld) [Mass/Vol] 9.1 g/dL Low 13.0-17.0 [facility] Comment on above: Performed By: #### L [id number] ####[facility] ([facility], [place] [address] MCH (RBC) [Entitic mass] 30.7 pg Normal 27.0-33.0 [facility] Comment on above: Performed By: #### L [id number] ####[facility] [place] [address] MCV (RBC) [Entitic vol] 92.6 fL Normal 82.0-98.0 [facility] Comment on above: Performed By: #### L [id number] ####[facility] ([facility])[address] [place] [address] PLATELETS (10*3/UL) IN BLOOD AUTOMATED COUNT 276 10*3/uL Normal 150-400 [facility] Comment on above: Performed By: #### L [id number] ####[facility] ([facility])[address] [place] [address] RBC (Bld) [#/Vol] 2.96 10*6/uL Low 4.20-5.70 [facility] Comment on above: Performed By: #### L [id number] ####[facility] ([facility])[address] [place] [address] WBC (Bld) [#/Vol] 6.87 10*3/uL Normal 4.00-10.60 [facility] Comment on above: Performed By: #### L [id number] ####[facility] ([facility])[address] [place] [address] DSon 05-01-2023 DS Normal [facility] MAGNESIUMon 05-01-2023 Magnesium [Mass/Vol] 1.7 mg/dL Low 1.9-2.7 [facility] Comment on above: Performed By: #### L [id number] ####[facility] ([facility])[address] [place] [address] NURSNOTEon 05-01-2023 NURSNOTE Normal [facility] NURSNOTE Normal [facility] PHOSPHORUSon 05-01-2023 Magnesium [Mass/Vol] 3.8 mg/dL Normal 2.5-5.0 [facility] Comment on above: Performed By: #### L [id number] ####[facility] ([facility])[address] [place] [address] POCT GLUCOSE METER UNSOLICIT ED RESULTSon 05-01-2023 Glucose [Mass/Vol] 116 mg/dL High 70-105 [facility] Comment on above: Order Comment: Waive d Testing in the ED is performed under the ED CLIA certificate #[id number]. Result Comment: [email or web address] Performed By: #### L [id number] ####[facility] (BEAKER)[address] [place] [address] Glucose [Mass/Vol] 115 mg/dL High 70-105 [facility] Comment on above: Order Comment: Waive d Testing in the ED is performed under the ED CLIA certificate #[id number]. Result Comment: [email or web address] Performed By: #### L [id number] ####[facility] ([facility] [place] [address] 30on 04-30-2023 30 Normal [facility] 30 Normal [facility] 30 Normal [facility] BASIC METABOLIC PANELon 04-17 Anion gap [Moles/Vol] 12 mmol/L Normal 7-20 [facility] Comment on above: Performed By: #### L [id number] ####[facility] (BEAKER)[address] [place] [address] Calcium [Mass/Vol] 8.3 mg/dL Low 8.6-10.3 [facility] Comment on above: Performed By: #### L [id number] ####[facility] (BEAKER)[address] [place] [address] Chloride [Moles/Vol] 109 mmol/L High 98-107 [facility] Comment on above: Performed By: #### L [id number] ####[facility] (BEAKER)[address] [place] [address] CO2 [Moles/Vol] 21 mmol/L Normal 21-31 [facility] Comment on above: Performed By: #### L [id number] ####[facility] (BEAKER)[address] [place] [address] Creatinine [Mass/Vol] 0.70 mg/dL Normal 0.70-1.30 [facility] Comment on above: Performed By: #### L [id number] ####[facility] ([facility])[address] [place] [address] GLOMERULAR FILTRATION RATE ML/MIN/1.73 SQ M.PREDICTED 99.7 mL/min/1.73m*2 Normal >60.0 [facility] Comment on above: Result Comment: The [facility]???s estimated glomerular filtration rate (eGFR) will no [...] of individuals. Performed By: #### L [id number] ####[facility] ([facility])[address] [place] [address] Glucose [Mass/Vol] 104 mg/dL High 70-100 [facility] Comment on above: Performed By: #### L [id number] ####[facility] ([facility])[address] [place] [address] Potassium [Moles/Vol] 3.7 mmol/L Normal 3.5-5.1 [facility] Comment on above: Performed By: #### L [id number] ####[facility] ([facility])[address] [place] [address] Sodium [Moles/Vol] 138 mmol/L Normal 136-145 [facility] Comment on above: Performed By: #### L [id number] ####[facility] ([facility])[address] [facility] [address] Urea nitrogen [Mass/Vol] 15 mg/dL Normal 7-25 [facility] Comment on above: Performed By: #### L [id number] ####[facility] ([facility])[address] [place] [address] UREA NITROGEN/CREATININ E (MASS RATIO) IN SER/PLAS 21.4 Normal [facility] Comment on above: Performed By: #### L [id number] ####[facility] ([facility])[address] [place] [address] CBCon 04-30-2023 Erythrocyte distribution width (RBC) [Ratio] 13.8 % Normal 11.5-15.0 [facility] Comment on above: Performed By: #### L [id number] ####[facility] ([facility])[address] [place] [address] ERYTHROCYTE MEAN CORPUSCULAR HEMOGLOBIN CONCENTRATION (G/DL) BY AUTOMATED 32.6 g/dL Normal 32.0-35.0 [facility] Comment on above: Performed By: #### L [id number] ####[facility] ([facility])[address] [place] [address] Hematocrit (Bld) [Volume fraction] 27.3 % Low 39.0-55.0 [facility] Comment on above: Performed By: #### L [id number] ####[facility] ([facility])[address] [place] [address] Hemoglobin (Bld) [Mass/Vol] 8.9 g/dL Low 13.0-17.0 [facility] Comment on above: Performed By: #### L [id number] ####[facility] ([facility])[address] [place] [address] MCH (RBC) [Entitic mass] 30.4 pg Normal 27.0-33.0 [facility] Comment on above: Performed By: #### L [id number] ####[facility] [place] [address] MCV (RBC) [Entitic vol] 93.2 fL Normal 82.0-98.0 [facility] Comment on above: Performed By: #### L [id number] ####[facility] [place] [address] PLATELETS (10*3/UL) IN BLOOD AUTOMATED COUNT 219 10*3/uL Normal 150-400 [facility] Comment on above: Performed By: #### L [id number] ####[facility] ([facility])[address] [place] [address] RBC (Bld) [#/Vol] 2.93 10*6/uL Low 4.20-5.70 [facility] Comment on above: Performed By: #### L [id number] ####[facility] ([facility])[address] [place] [address] WBC (Bld) [#/Vol] 6.80 10*3/uL Normal 4.00-10.60 [facility] Comment on above: Performed By: #### L [id number] ####[facility] ([facility])[address] [place] [address] MAGNESIUMon 04-30-2023 Magnesium [Mass/Vol] 1.7 mg/dL Low 1.9-2.7 [facility] Comment on above: Performed By: #### L [id number] ####[facility] ([facility])[address] [place] [address] PHOSPHORUSon 04-30-2023 Magnesium [Mass/Vol] 4.0 mg/dL Normal 2.5-5.0 [facility] Comment on above: Performed By: #### L [id number] ####[facility] ([facility])[address] [place] [address] POCT GLUCOSE METER UNSOLICIT ED RESULTSon 04-30-2023 Glucose [Mass/Vol] 123 mg/dL High 70-105 [facility] Comment on above: Order Comment: Waive d Testing in the ED is performed under the ED CLIA certificate #[id number]. Result Comment: [email or web address] Performed By: #### L [id number] ####[facility] ([facility])[address] [place] [address] Glucose [Mass/Vol] 138 mg/dL High 70-105 [facility] Comment on above: Order Comment: Waive d Testing in the ED is performed under the ED CLIA certificate #[id number]. Result Comment: [email or web address] Performed By: #### L [id number] ####[facility] (BEAKER)[address] [place] [address] 30on 04-29-2023 30 Normal [facility] 30 Normal [facility] 30 Normal [facility] BASIC METABOLIC PANELon 04-17 Anion gap [Moles/Vol] 11 mmol/L Normal 7-20 [facility] Comment on above: Performed By: #### L [id number] ####[facility] (BEAKER)[address] [place] [address] Calcium [Mass/Vol] 8.4 mg/dL Low 8.6-10.3 [facility] Comment on above: Performed By: #### L [id number] ####[facility] (BEAKER)[address] [place] [address] Chloride [Moles/Vol] 109 mmol/L High 98-107 [facility] Comment on above: Performed By: #### L [id number] ####[facility] (BEAKER)[address] [place] [address] CO2 [Moles/Vol] 20 mmol/L Low 21-31 [facility] Comment on above: Performed By: #### L [id number] ####[facility] (BEAKER)[address] [place] [address] Creatinine [Mass/Vol] 0.68 mg/dL Low 0.70-1.30 [facility] Comment on above: Performed By: #### L [id number] ####[facility] (BEAKER)[address] [place] [address] GLOMERULAR FILTRATION RATE ML/MIN/1.73 SQ M.PREDICTED 100.6 mL/min/1.73m*2 Normal >60.0 [facility] Comment on above: Result Comment: The [facility]???s estimated glomerular filtration rate (eGFR) will no [...] of individuals. Performed By: #### L [id number] ####[facility] ([facility])[address] [place] [address] Glucose [Mass/Vol] 100 mg/dL Normal 70-100 [facility] Comment on above: Performed By: #### L [id number] ####[facility] ([facility])[address] [place] [address] Potassium [Moles/Vol] 3.8 mmol/L Normal 3.5-5.1 [facility] Comment on above: Performed By: #### L [id number] ####[facility] ([facility])[address] [facility] [address] Sodium [Moles/Vol] 136 mmol/L Normal 136-145 [facility] Comment on above: Performed By: #### L [id number] ####[facility] ([facility])[address] [facility] [address] Urea nitrogen [Mass/Vol] 18 mg/dL Normal 7-25 [facility] Comment on above: Performed By: #### L [id number] ####[facility] ([facility])[address] [facility] [address] UREA NITROGEN/CREATININ E (MASS RATIO) IN SER/PLAS 26.5 Normal [facility] Comment on above: Performed By: #### L [id number] ####[facility] ([facility])[address] [facility] [address] CBCon 04-29-2023 Erythrocyte distribution width (RBC) [Ratio] 13.6 % Normal 11.5-15.0 [facility] Comment on above: Performed By: #### L [id number] ####[facility] ([facility])[address] [place] [address] ERYTHROCYTE MEAN CORPUSCULAR HEMOGLOBIN CONCENTRATION (G/DL) BY AUTOMATED 33.7 g/dL Normal 32.0-35.0 [facility] Comment on above: Performed By: #### L [id number] ####[facility] (BEAKER)[address] [place] [address] Hematocrit (Bld) [Volume fraction] 27.0 % Low 39.0-55.0 [facility] Comment on above: Performed By: #### L [id number] ####[facility] (BEAKER)[address] [place] [address] Hemoglobin (Bld) [Mass/Vol] 9.1 g/dL Low 13.0-17.0 [facility] Comment on above: Performed By: #### L [id number] ####[facility] (BEAKER)[address] [place] [address] MCH (RBC) [Entitic mass] 30.4 pg Normal 27.0-33.0 [facility] Comment on above: Performed By: #### L [id number] ####[facility] (BEAKER)[address] [place] [address] MCV (RBC) [Entitic vol] 90.3 fL Normal 82.0-98.0 [facility] Comment on above: Performed By: #### L [id number] ####[facility] (BEAKER)[address] [place] [address] PLATELETS (10*3/UL) IN BLOOD AUTOMATED COUNT 188 10*3/uL Normal 150-400 [facility] Comment on above: Performed By: #### L [id number] ####[facility] (BEAKER)[address] [place] [address] RBC (Bld) [#/Vol] 2.99 10*6/uL Low 4.20-5.70 [facility] Comment on above: Performed By: #### L [id number] ####[facility] (BEAKER)[address] [place] [address] WBC (Bld) [#/Vol] 7.24 10*3/uL Normal 4.00-10.60 [facility] Comment on above: Performed By: #### L [id number] ####[facility] ([facility])[address] [place] [address] CONSULTon 04-29-2023 CONSULT Normal [facility] MAGNESIUMon 04-29-2023 Magnesium [Mass/Vol] 1.7 mg/dL Low 1.9-2.7 [facility] Comment on above: Performed By: #### L [id number] ####[facility] ([facility])[address] [place] [address] PHOSPHORUSon 04-29-2023 Magnesium [Mass/Vol] 3.9 mg/dL Normal 2.5-5.0 [facility] Comment on above: Performed By: #### L [id number] ####[facility] ([facility])[address] [place] [address] POCT GLUCOSE METER UNSOLICIT ED RESULTSon 04-29-2023 Glucose [Mass/Vol] 111 mg/dL High 70-105 [facility] Comment on above: Order Comment: Waive d Testing in the ED is performed under the ED CLIA certificate #[id number]. Result Comment: [email or web address] Performed By: #### L [id number] ####[facility] ([facility])[address] [place] [address] Glucose [Mass/Vol] 133 mg/dL High 70-105 [facility] Comment on above: Order Comment: Waive d Testing in the ED is performed under the ED CLIA certificate #[id number]. Result Comment: [email or web address] shea Performed By: #### L [id number] ####[facility] ([facility])[address] [place] [address] Glucose [Mass/Vol] 128 mg/dL High 70-105 [facility] Comment on above: Order Comment: Waive d Testing in the ED is performed under the ED CLIA certificate #[id number]. Result Comment: [email or web address] shea Performed By: #### L [id number] ####[facility] [place] [address] 30on 04-28-2023 30 Normal [facility] BASIC METABOLIC PANELon 04-17 Anion gap [Moles/Vol] 10 mmol/L Normal 7-20 [facility] Comment on above: Performed By: #### L [id number] ####[facility] ([facility])[address] [place] [address] Calcium [Mass/Vol] 8.1 mg/dL Low 8.6-10.3 [facility] Comment on above: Performed By: #### L [id number] ####[facility] ([facility])[address] [place] [address] Chloride [Moles/Vol] 109 mmol/L High 98-107 [facility] Comment on above: Performed By: #### L [id number] ####[facility] ([facility])[address] [place] [address] CO2 [Moles/Vol] 22 mmol/L Normal 21-31 [facility] Comment on above: Performed By: #### L [id number] ####[facility] ([facility])[address] [place] [address] Creatinine [Mass/Vol] 0.62 mg/dL Low 0.70-1.30 [facility] Comment on above: Performed By: #### L [id number] ####[facility] ([facility])[address] [place] [address] GLOMERULAR FILTRATION RATE ML/MIN/1.73 SQ M.PREDICTED 103.5 mL/min/1.73m*2 Normal >60.0 [facility] Comment on above: Result Comment: The [facility]???s estimated glomerular filtration rate (eGFR) will no [...] of individuals. Performed By: #### L [id number] ####[facility] ([facility])[address] [place] [address] Glucose [Mass/Vol] 102 mg/dL High 70-100 [facility] Comment on above: Performed By: #### L [id number] ####[facility] ([facility])[address] [address] Potassium [Moles/Vol] 3.4 mmol/L Low 3.5-5.1 [facility] Comment on above: Performed By: #### L [id number] ####[facility] ([facility])[address] [place] [address] Sodium [Moles/Vol] 138 mmol/L Normal 136-145 [facility] Comment on above: Performed By: #### L [id number] ####[facility] ([facility])[address] [facility] [address] Urea nitrogen [Mass/Vol] 22 mg/dL Normal 7-25 [facility] Comment on above: Performed By: #### L [id number] ####[facility] ([facility])[address] [place] [address] UREA NITROGEN/CREATININ E (MASS RATIO) IN SER/PLAS 35.5 Normal [facility] Comment on above: Performed By: #### L [id number] ####[facility] ([facility])[address] [facility] [address] CBC WITH AUTO DIFFERENTIALon 04-28-2023 Basophils (Bld) [#/Vol] 0.02 10*3/uL Normal 0.00-0.20 [facility] Comment on above: Performed By: #### L [id number] ####[facility] ([facility])[address] [place] [address] Basophils/100 WBC (Bld) 0.2 % Normal 0.0-1.0 [facility] Comment on above: Performed By: #### L [id number] ####[facility] ([facility])[address] [place] [address] Eosinophils (Bld) [#/Vol] 0.09 10*3/uL Normal 0.00-0.50 [facility] Comment on above: Performed By: #### L [id number] ####[facility] ([facility])[address] [place] [address] Eosinophils/100 WBC (Bld) 1.1 % Normal 0.0-6.0 [facility] Comment on above: Performed By: #### L [id number] ####[facility] ([facility])[address] [place] [address] Erythrocyte distribution width (RBC) [Ratio] 13.6 % Normal 11.5-15.0 [facility] Comment on above: Performed By: #### L [id number] ####[facility] ([facility])[address] [place] [address] ERYTHROCYTE MEAN CORPUSCULAR HEMOGLOBIN CONCENTRATION (G/DL) BY AUTOMATED 33.1 g/dL Normal 32.0-35.0 [facility] Comment on above: Performed By: #### L [id number] ####[facility] ([facility])[address] [place] [address] Hematocrit (Bld) [Volume fraction] 32.3 % Low 39.0-55.0 [facility] Comment on above: Performed By: #### L [id number] ####[facility] [place] [address] Hemoglobin (Bld) [Mass/Vol] 10.7 g/dL Low 13.0-17.0 [facility] Comment on above: Performed By: #### L [id number] ####[facility] ([facility])[address] [place] [address] Immature granulocytes (Bld) [#/Vol] 0.06 10*3/uL Normal 0.00-0.20 [facility] Comment on above: Performed By: #### L [id number] ####[facility] ([facility])[address] [place] [address] Immature granulocytes/100 WBC (Bld) 0.7 % Normal 0.0-1.0 [facility] Comment on above: Performed By: #### L [id number] ####[facility] ([facility])[address] [place] [address] Lymphocytes (Bld) [#/Vol] 1.82 10*3/uL Normal 1.20-4.00 [facility] Comment on above: Performed By: #### L [id number] ####[facility] ([facility])[address] [place] [address] Lymphocytes/100 WBC (Bld) 22.2 % Normal 20.0-45.0 [facility] Comment on above: Performed By: #### L [id number] ####[facility] ([facility])[address] [place] [address] MCH (RBC) [Entitic mass] 30.3 pg Normal 27.0-33.0 [facility] Comment on above: Performed By: #### L [id number] ####[facility] ([facility])[address] [place] [address] MCV (RBC) [Entitic vol] 91.5 fL Normal 82.0-98.0 [facility] Comment on above: Performed By: #### L [id number] ####[facility] ([facility])[address] [place] [address] Monocytes (Bld) [#/Vol] 0.67 10*3/uL Normal 0.10-1.00 [facility] Comment on above: Performed By: #### L [id number] ####[facility] ([facility])[address] [place] [address] Monocytes/100 WBC (Bld) 8.2 % Normal 5.0-12.0 [facility] Comment on above: Performed By: #### L [id number] ####[facility] ([facility])[address] [place] [address] Neutrophils (Bld) [#/Vol] 5.55 10*3/uL Normal 1.60-7.60 [facility] Comment on above: Performed By: #### L [id number] ####[facility] ([facility])[address] [address] Neutrophils/100 WBC (Bld) 67.6 % Normal 40.0-72.0 [facility] Comment on above: Performed By: #### L [id number] ####[facility] ([facility] [address] NRBC (PER 100 WBCS) BY AUTOMATED COUNT 0.0 % Normal 0 [facility] Comment on above: Performed By: #### L [id number] ####[facility] [address] PLATELETS (10*3/UL) IN BLOOD AUTOMATED COUNT 160 10*3/uL Normal 150-400 [facility] Comment on above: Performed By: #### L [id number] ####[facility] ([facility])[address] [address] RBC (Bld) [#/Vol] 3.53 10*6/uL Low 4.20-5.70 [facility] Comment on above: Performed By: #### L [id number] ####[facility] ([facility])[address] [address] WBC (Bld) [#/Vol] 8.21 10*3/uL Normal 4.00-10.60 [facility] Comment on above: Performed By: #### L [id number] ####[facility] ([facility])[address], [place] [address] MAGNESIUMon 04-28-2023 Magnesium [Mass/Vol] 1.7 mg/dL Low 1.9-2.7 [facility] Comment on above: Performed By: #### L [id number] ####[facility] ([facility])[address], [place] [address] PHOSPHORUSon 04-28-2023 Magnesium [Mass/Vol] 3.9 mg/dL Normal 2.5-5.0 [facility] Comment on above: Performed By: #### L [id number] ####[facility] ([facility])[address] [facility] [address] POCT GLUCOSE METER UNSOLICIT ED RESULTSon 04-28-2023 Glucose [Mass/Vol] 111 mg/dL High 70-105 [facility] Comment on above: Order Comment: Waive d Testing in the ED is performed under the ED CLIA certificate #[id number]. Result Comment: [email or web address] Performed By: #### L [id number] ####[facility] ([facility])[address] [place] [address] Glucose [Mass/Vol] 86 mg/dL Normal 70-105 [facility] Comment on above: Order Comment: Waive d Testing in the ED is performed under the ED CLIA certificate #[id number]. Result Comment: [email or web address] Performed By: #### L [id number] ####[facility] ([facility])[address] [place] [address] Glucose [Mass/Vol] 159 mg/dL High 70-105 [facility] Comment on above: Order Comment: Waive d Testing in the ED is performed under the ED CLIA certificate #[id number]. Result Comment: [email or web address] Performed By: #### L [id number] ####[facility] ([facility])[address] [address] Glucose [Mass/Vol] 109 mg/dL High 70-105 [facility] Comment on above: Order Comment: Waive d Testing in the ED is performed under the ED CLIA certificate #[id number]. Result Comment: [email or web address] Performed By: #### L [id number] ####[facility] ([facility])[address] [place] [address] BASIC METABOLIC PANELon 04-17 Anion gap [Moles/Vol] 11 mmol/L Normal 7-20 [facility] Comment on above: Performed By: #### L [id number] ####[facility] ([facility])[address] [place] [address] Calcium [Mass/Vol] 8.2 mg/dL Low 8.6-10.3 [facility] Comment on above: Performed By: #### L [id number] ####[facility] ([facility])[address] [place] [address] Chloride [Moles/Vol] 112 mmol/L High 98-107 [facility] Comment on above: Performed By: #### L [id number] ####[facility] ([facility])[address] [place] [address] CO2 [Moles/Vol] 23 mmol/L Normal 21-31 [facility] Comment on above: Performed By: #### L [id number] ####[facility] ([facility])[address] [place] [address] Creatinine [Mass/Vol] 0.64 mg/dL Low 0.70-1.30 [facility] Comment on above: Performed By: #### L [id number] ####[facility] [place] [address] GLOMERULAR FILTRATION RATE ML/MIN/1.73 SQ M.PREDICTED 102.5 mL/min/1.73m*2 Normal >60.0 [facility] Comment on above: Result Comment: The [facility]???s estimated glomerular filtration rate (eGFR) will no [...] of individuals. Performed By: #### L [id number] ####[facility] ([facility])[address] [place] [address] Glucose [Mass/Vol] 116 mg/dL High 70-100 [facility] Comment on above: Performed By: #### L [id number] ####[facility] ([facility])[address] [place] [address] Potassium [Moles/Vol] 3.9 mmol/L Normal 3.5-5.1 [facility] Comment on above: Performed By: #### L [id number] ####[facility] ([facility])[address] [place] [address] Sodium [Moles/Vol] 142 mmol/L Normal 136-145 [facility] Comment on above: Performed By: #### L [id number] ####[facility] ([facility])[address] [place] [address] Urea nitrogen [Mass/Vol] 22 mg/dL Normal 7-25 [facility] Comment on above: Performed By: #### L [id number] ####[facility] ([facility])[address] [place] [address] UREA NITROGEN/CREATININ E (MASS RATIO) IN SER/PLAS 34.4 Normal [facility] Comment on above: Performed By: #### L [id number] ####[facility] ([facility])[address] [place] [address] CBC WITH AUTO DIFFERENTIALon 04-27-2023 Basophils (Bld) [#/Vol] 0.02 10*3/uL Normal 0.00-0.20 [facility] Comment on above: Performed By: #### L [id number] ####[facility] ([facility])[address] [place] [address] Basophils/100 WBC (Bld) 0.2 % Normal 0.0-1.0 [facility] Comment on above: Performed By: #### L [id number] ####[facility] ([facility])[address] [place] [address] Eosinophils (Bld) [#/Vol] 0.05 10*3/uL Normal 0.00-0.50 [facility] Comment on above: Performed By: #### L [id number] ####[facility] ([facility])[address] [place] [address] Eosinophils/100 WBC (Bld) 0.5 % Normal 0.0-6.0 [facility] Comment on above: Performed By: #### L [id number] ####[facility] ([facility])[address] [place] [address] Erythrocyte distribution width (RBC) [Ratio] 13.6 % Normal 11.5-15.0 [facility] Comment on above: Performed By: #### L [id number] ####[facility] ([facility])[address] [place] [address] ERYTHROCYTE MEAN CORPUSCULAR HEMOGLOBIN CONCENTRATION (G/DL) BY AUTOMATED 33.7 g/dL Normal 32.0-35.0 [facility] Comment on above: Performed By: #### L [id number] ####[facility] ([facility])[address] [place] [address] Hematocrit (Bld) [Volume fraction] 26.4 % Low 39.0-55.0 [facility] Comment on above: Performed By: #### L [id number] ####[facility] ([facility])[address] [place] [address] Hemoglobin (Bld) [Mass/Vol] 8.9 g/dL Low 13.0-17.0 [facility] Comment on above: Performed By: #### L [id number] ####[facility] ([facility])[address] [place] [address] Immature granulocytes (Bld) [#/Vol] 0.07 10*3/uL Normal 0.00-0.20 [facility] Comment on above: Performed By: #### L [id number] ####[facility] ([facility])[address] [place] [address] Immature granulocytes/100 WBC (Bld) 0.8 % Normal 0.0-1.0 [facility] Comment on above: Performed By: #### L [id number] ####[facility] ([facility])[address] [place] [address] Lymphocytes (Bld) [#/Vol] 1.24 10*3/uL Normal 1.20-4.00 [facility] Comment on above: Performed By: #### L [id number] ####[facility] ([facility])[address] [place] [address] Lymphocytes/100 WBC (Bld) 13.3 % Low 20.0-45.0 [facility] Comment on above: Performed By: #### L [id number] ####[facility] ([facility])[address] [place] [address] MCH (RBC) [Entitic mass] 30.5 pg Normal 27.0-33.0 [facility] Comment on above: Performed By: #### L [id number] ####[facility] ([facility])[address] [place] [address] MCV (RBC) [Entitic vol] 90.4 fL Normal 82.0-98.0 [facility] Comment on above: Performed By: #### L [id number] ####[facility] ([facility])[address] [place] [address] Monocytes (Bld) [#/Vol] 0.72 10*3/uL Normal 0.10-1.00 [facility] Comment on above: Performed By: #### L [id number] ####[facility] ([facility])[address] [place] [address] Monocytes/100 WBC (Bld) 7.7 % Normal 5.0-12.0 [facility] Comment on above: Performed By: #### L [id number] ####[facility] ([facility])[address] [place] [address] Neutrophils (Bld) [#/Vol] 7.22 10*3/uL Normal 1.60-7.60 [facility] Comment on above: Performed By: #### L [id number] ####[facility] ([facility])[address] [place] [address] Neutrophils/100 WBC (Bld) 77.5 % High 40.0-72.0 [facility] Comment on above: Performed By: #### L [id number] ####[facility] ([facility])[address] [address] NRBC (PER 100 WBCS) BY AUTOMATED COUNT 0.0 % Normal 0 [facility] Comment on above: Performed By: #### L [id number] ####[facility] ([facility])[address] [address] PLATELETS (10*3/UL) IN BLOOD AUTOMATED COUNT 100 10*3/uL Low 150-400 [facility] Comment on above: Performed By: #### L [id number] ####[facility] ([facility])[address] [place] [address] RBC (Bld) [#/Vol] 2.92 10*6/uL Low 4.20-5.70 [facility] Comment on above: Performed By: #### L [id number] ####[facility] ([facility])[address], [place] [address] WBC (Bld) [#/Vol] 9.32 10*3/uL Normal 4.00-10.60 [facility] Comment on above: Performed By: #### L [id number] ####[facility] ([facility])[address] [place] [address] MAGNESIUMon 04-27-2023 Magnesium [Mass/Vol] 1.9 mg/dL Normal 1.9-2.7 [facility] Comment on above: Performed By: #### L [id number] ####[facility] ([facility])[address] [place] [address] PHOSPHORUSon 04-27-2023 Magnesium [Mass/Vol] 3.5 mg/dL Normal 2.5-5.0 [facility] Comment on above: Performed By: #### L [id number] ####[facility] ([facility])[address] [place] [address] POCT GLUCOSE METER UNSOLICIT ED RESULTSon 04-27-2023 Glucose [Mass/Vol] 100 mg/dL Normal 70-105 [facility] Comment on above: Order Comment: Waive d Testing in the ED is performed under the ED CLIA certificate #[id number]. Result Comment: [email or web address] Performed By: #### L [id number] ####[facility] ([facility])[address] [place] [address] Glucose [Mass/Vol] 165 mg/dL High 70-105 [facility] Comment on above: Order Comment: Waive d Testing in the ED is performed under the ED CLIA certificate #[id number]. Result Comment: [email or web address] Performed By: #### L [id number] ####[facility] ([facility])[address] [place] [address] Glucose [Mass/Vol] 157 mg/dL High 70-105 [facility] Comment on above: Order Comment: Waive d Testing in the ED is performed under the ED CLIA certificate #[id number]. Result Comment: [email or web address] Performed By: #### L [id number] ####[facility] ([employer])[address] [address] Glucose [Mass/Vol] 112 mg/dL High 70-105 [facility] Comment on above: Order Comment: Waive d Testing in the ED is performed under the ED CLIA certificate #[id number]. Result Comment: [email or web address] Performed By: #### L [id number] ####[facility] ([facility])[address] [place] [address] PROTIME-INRon 04-27-2023 INR IN PPP BY COAGULATION ASSAY 1.21 High 0.90-1.10 [facility] Comment on above: Result Comment: ACCC P [...] CHEST 1995;[id number]. Performed By: #### L [id number] ####[facility] ([employer])[address] [place] [address] PROTHROMBIN TIME (PT) IN PPP BY COAGULATION ASSAY 15.3 Seconds High 12.3-14.8 [facility] Comment on above: Performed By: #### L [id number] ####[facility] ([employer])[address] [facility] [address] 30on 04-26-2023 30 Normal [facility] 30 Normal [facility] 30 Normal [facility] 30 Normal [facility] BASIC METABOLIC PANELon 11- Anion gap [Moles/Vol] 10 mmol/L Normal 7-20 [facility] Comment on above: Performed By: #### L [id number] ####[facility] ([employer])[address] [place] [address] Calcium [Mass/Vol] 8.5 mg/dL Low 8.6-10.3 [facility] Comment on above: Performed By: #### L [id number] ####[facility] ([employer])[address] [facility] [address] Chloride [Moles/Vol] 109 mmol/L High 98-107 [facility] Comment on above: Performed By: #### L [id number] ####[facility] [facility] ([employer])[address] [place] [address] CO2 [Moles/Vol] 25 mmol/L Normal 21-31 [facility] Comment on above: Performed By: #### L [id number] ####[facility] ([facility])[address] [place] [address] Creatinine [Mass/Vol] 0.62 mg/dL Low 0.70-1.30 [facility] Comment on above: Performed By: #### L [id number] ####[facility] ([facility])[address] [place] [address] GLOMERULAR FILTRATION RATE ML/MIN/1.73 SQ M.PREDICTED 103.5 mL/min/1.73m*2 Normal >60.0 [facility] Comment on above: Result Comment: The [facility]???s estimated glomerular filtration rate (eGFR) will no [...] of individuals. Performed By: #### L [id number] ####[facility] ([facility])[address] [place] [address] Glucose [Mass/Vol] 136 mg/dL High 70-100 [facility] Comment on above: Performed By: #### L [id number] ####[facility] ([facility])[address] [place] [address] Potassium [Moles/Vol] 3.6 mmol/L Normal 3.5-5.1 [facility] Comment on above: Performed By: #### L [id number] ####[facility] ([facility])[address] [place] [address] Sodium [Moles/Vol] 140 mmol/L Normal 136-145 [facility] Comment on above: Performed By: #### L [id number] ####[facility] ([facility])[address] [place] [address] Urea nitrogen [Mass/Vol] 18 mg/dL Normal 7-25 [facility] Comment on above: Performed By: #### L [id number] ####[facility] ([facility])[address] [place] [address] UREA NITROGEN/CREATININ E (MASS RATIO) IN SER/PLAS 29.0 Normal [facility] Comment on above: Performed By: #### L [id number] ####[facility] ([facility])[address] [place] [address] Anion gap [Moles/Vol] 9 mmol/L Normal 7-20 [facility] Comment on above: Performed By: #### L [id number] ####[facility] ([facility])[address] [place] [address] Calcium [Mass/Vol] 7.8 mg/dL Low 8.6-10.3 [facility] Comment on above: Performed By: #### L [id number] ####[facility] ([facility])[address] [place] [address] Chloride [Moles/Vol] 112 mmol/L High 98-107 [facility] Comment on above: Performed By: #### L [id number] ####[facility] ([facility])[address] [place] [address] CO2 [Moles/Vol] 23 mmol/L Normal 21-31 [facility] Comment on above: Performed By: #### L [id number] ####[facility] ([facility])[address] [place] [address] Creatinine [Mass/Vol] 0.61 mg/dL Low 0.70-1.30 [facility] Comment on above: Performed By: #### L [id number] ####[facility] ([facility])[address] [place] [address] GLOMERULAR FILTRATION RATE ML/MIN/1.73 SQ M.PREDICTED 104.0 mL/min/1.73m*2 Normal >60.0 [facility] Comment on above: Result Comment: The [facility]???s estimated glomerular filtration rate (eGFR) will no [...] of individuals. Performed By: #### L [id number] ####[facility] ([facility])[address] [place] [address] Glucose [Mass/Vol] 112 mg/dL High 70-100 [facility] Comment on above: Performed By: #### L [id number] ####[facility] ([facility])[address] [place] [address] Potassium [Moles/Vol] 3.4 mmol/L Low 3.5-5.1 [facility] Comment on above: Performed By: #### L [id number] ####[facility] ([facility])[address] [place] [address] Sodium [Moles/Vol] 141 mmol/L Normal 136-145 [facility] Comment on above: Performed By: #### L [id number] ####[facility] [place] [address] Urea nitrogen [Mass/Vol] 14 mg/dL Normal 7-25 [facility] Comment on above: Performed By: #### L [id number] ####[facility] [place] [address] UREA NITROGEN/CREATININ E (MASS RATIO) IN SER/PLAS 23.0 Normal [facility] Comment on above: Performed By: #### L [id number] ####[facility] [place] [address] CBCon 04-26-2023 Erythrocyte distribution width (RBC) [Ratio] 13.9 % Normal 11.5-15.0 [facility] Comment on above: Performed By: #### L [id number] ####[facility] [place] [address] ERYTHROCYTE MEAN CORPUSCULAR HEMOGLOBIN CONCENTRATION (G/DL) BY AUTOMATED 33.7 g/dL Normal 32.0-35.0 [facility] Comment on above: Performed By: #### L [id number] ####[facility] ([facility])[address] [place] [address] Hematocrit (Bld) [Volume fraction] 24.3 % Low 39.0-55.0 [facility] Comment on above: Performed By: #### L [id number] ####[facility] ([facility])[address] [place] [address] Hemoglobin (Bld) [Mass/Vol] 8.2 g/dL Low 13.0-17.0 [facility] Comment on above: Performed By: #### L [id number] ####[facility] ([facility])[address] [place] [address] IMMATURE PLATELET FRACTION % 4.3 % Normal 0.8-6.3 [facility] Comment on above: Performed By: #### L [id number] ####[facility] ([facility])[address] [place] [address] MCH (RBC) [Entitic mass] 30.4 pg Normal 27.0-33.0 [facility] Comment on above: Performed By: #### L [id number] ####[facility] [place] [address] MCV (RBC) [Entitic vol] 90.0 fL Normal 82.0-98.0 [facility] Comment on above: Performed By: #### L [id number] ####[facility] ([facility])[address] [place] [address] PLATELETS (10*3/UL) IN BLOOD AUTOMATED COUNT 71 10*3/uL Low 150-400 [facility] Comment on above: Performed By: #### L [id number] ####[facility] [place] [address] RBC (Bld) [#/Vol] 2.70 10*6/uL Low 4.20-5.70 [facility] Comment on above: Performed By: #### L [id number] ####[facility] ([facility])[address] [place] [address] WBC (Bld) [#/Vol] 7.74 10*3/uL Normal 4.00-10.60 [facility] Comment on above: Performed By: #### L [id number] ####[facility] ([facility])[address] [place] [address] CO-OXIMETRYon 04-26-2023 CARBOXYHEMOGLOBIN/ HEMOGLOBIN TOTAL % IN BLOOD 1.4 % Normal [facility] Comment on above: Performed By: #### L [id number] ####[facility] [id number] [facility] [address] [place] Hemoglobin (Bld) [Mass/Vol] 8.5 g/dL Normal [facility] Comment on above: Performed By: #### L [id number] ####[facility] [id number] [place] [address] [place] METHEMOGLOBIN/100 IN BLOOD 0.3 % Normal 0.0-1.5 [facility] Comment on above: Performed By: #### L [id number] ####[facility] [id number] [place] [address] [place] Oxygen saturation in Blood 57.1 % Normal [facility] Comment on above: Performed By: #### L [id number] ####[facility] [id number] [facility] [address] [place] OXYGENATED HEMOGLOBIN IN BLOOD 56.1 % Normal [facility] Comment on above: Performed By: #### L [id number] ####[facility] [id number] [facility] [address] [place] IRON AND TIBCon 04-26-2023 IRON (UG/DL) IN SER/PLAS 16 ug/dL Low 50-212 [facility] Comment on above: Performed By: #### L [id number] ####[facility] ([facility]AKER)[address] [place] [address] IRON BINDING CAPACITY (UG/DL) IN SER/PLAS 143 ug/dL Low 250-450 [facility] Comment on above: Performed By: #### L [id number] ####[facility] [place] [address] IRON BINDING CAPACITY.UNSATURAT ED (UG/DL) IN SER/PLAS 127.0 ug/dL Low 155.0-355.0 [facility] Comment on above: Performed By: #### L [id number] ####[facility] [place] [address] IRON SATURATION (%) IN SER/PLAS 11 % Low 20-50 [facility] Comment on above: Performed By: #### L [id number] ####[facility] [place] [address] LACTIC ACID, PLASMAon 2022 LACTATE (MMOL/L) IN SER/PLAS 0.6 mmol/L Normal 0.5-2.2 [facility] Comment on above: Performed By: #### L [id number] ####[facility] ([facility])[address] [place] [address] MAGNESIUMon 04-26-2023 Magnesium [Mass/Vol] 1.6 mg/dL Low 1.9-2.7 [facility] Comment on above: Performed By: #### L [id number] ####[facility] ([facility]AKER)[address] [place] [address] Magnesium [Mass/Vol] 1.7 mg/dL Low 1.9-2.7 [facility] Comment on above: Performed By: #### L [id number] ####[facility] ([facility]ER)[address] [place] [address] PHOSPHORUSon 04-26-2023 Magnesium [Mass/Vol] 3.4 mg/dL Normal 2.5-5.0 [facility] Comment on above: Performed By: #### L [id number] ####[facility] ([facility])[address] [place] [address] Magnesium [Mass/Vol] 3.7 mg/dL Normal 2.5-5.0 [facility] Comment on above: Performed By: #### L [id number] ####[facility] ([facility])[address] [place] [address] POCT GLUCOSE METER UNSOLICIT ED RESULTSon 04-26-2023 Glucose [Mass/Vol] 134 mg/dL High 70-105 [facility] Comment on above: Order Comment: Waive d Testing in the ED is performed under the ED CLIA certificate #[id number]. Result Comment: cfit [email or web address] Performed By: #### L [id number] ####[facility] ([facility])[address] [place] [address] Glucose [Mass/Vol] 129 mg/dL High 70-105 [facility] Comment on above: Order Comment: Waive d Testing in the ED is performed under the ED CLIA certificate #[id number]. Result Comment: cfit [email or web address] Performed By: #### L [id number] ####[facility] ([facility])[address] [place] [address] Glucose [Mass/Vol] 121 mg/dL High 70-105 [facility] Comment on above: Order Comment: Waive d Testing in the ED is performed under the ED CLIA certificate #[id number]. Result Comment: than sen2 Performed By: #### L [id number] ####[facility] ([facility])[address] [place] [address] Glucose [Mass/Vol] 113 mg/dL High 70-105 [facility] Comment on above: Order Comment: Waive d Testing in the ED is performed under the ED CLIA certificate #[id number]. Result Comment: than sen2 Performed By: #### L [id number] ####[facility] ([facility])[address] [place] [address] PREALBUMINon 04-26-2023 Prealbumin [Mass/Vol] 6.4 mg/dL Normal [facility] Comment on above: Performed By: #### L [id number] ####[facility] ([facility])[address] [place] [address] TRANSFERRINon 04-26-2023 Magnesium [Mass/Vol] 82 mg/dL Low 168-348 [facility] Comment on above: Performed By: #### L [id number] ####[facility] ([facility])[address] [place] [address] 30on 04-25-2023 30 Normal [facility] AMMONIAon 04-25-2023 AMMONIA (UMOL/L) IN PLASMA 39 umol/L Normal 18-72 [facility] Comment on above: Performed By: #### L [id number] ####[facility] ([facility])[address] [place] [address] APTTon 04-25-2023 ACTIVATED PARTIAL THROMBOPLASTIN TIME IN PPP BY COAGULATION ASSAY 37.2 Seconds High 25.0-35.0 [facility] Comment on above: Result Comment: Clin ical significance of the APTT is questionable in the presence of heparin. Performed By: #### L [id number] ####[facility] ([facility])[address] [place] [address] BASIC METABOLIC PANELon 11 Anion gap [Moles/Vol] 9 mmol/L Normal 7-20 [facility] Comment on above: Performed By: #### L [id number] ####[facility] ([facility])[address] [place] [address] Calcium [Mass/Vol] 8.2 mg/dL Low 8.6-10.3 [facility] Comment on above: Performed By: #### L [id number] ####[facility] ([facility])[address] [place] [address] Chloride [Moles/Vol] 111 mmol/L High 98-107 [facility] Comment on above: Performed By: #### L [id number] ####[facility] ([facility])[address] [place] [address] CO2 [Moles/Vol] 24 mmol/L Normal 21-31 [facility] Comment on above: Performed By: #### L [id number] ####[facility] ([facility])[address] [place] [address] Creatinine [Mass/Vol] 0.71 mg/dL Normal 0.70-1.30 [facility] Comment on above: Performed By: #### L [id number] ####[facility] ([facility])[address] [place] [address] GLOMERULAR FILTRATION RATE ML/MIN/1.73 SQ M.PREDICTED 99.3 mL/min/1.73m*2 Normal >60.0 [facility] Comment on above: Result Comment: The [facility]???s estimated glomerular filtration rate (eGFR) will no [...] of individuals. Performed By: #### L [id number] ####[facility] ([facility])[address] [place] [address] Glucose [Mass/Vol] 124 mg/dL High 70-100 [facility] Comment on above: Performed By: #### L [id number] ####[facility] ([facility])[address] [place] [address] Potassium [Moles/Vol] 3.9 mmol/L Normal 3.5-5.1 [facility] Comment on above: Performed By: #### L [id number] ####[facility] [place] [address] Sodium [Moles/Vol] 140 mmol/L Normal 136-145 [facility] Comment on above: Performed By: #### L [id number] ####[facility] ([facility])[address] [place] [address] Urea nitrogen [Mass/Vol] 17 mg/dL Normal 7-25 [facility] Comment on above: Performed By: #### L [id number] ####[facility] [place] [address] UREA NITROGEN/CREATININ E (MASS RATIO) IN SER/PLAS 23.9 Normal [facility] Comment on above: Performed By: #### L [id number] ####[facility] ([facility])[address] [address] CBCon 04-25-2023 Erythrocyte distribution width (RBC) [Ratio] 14.0 % Normal 11.5-15.0 [facility] Comment on above: Performed By: #### L [id number] ####[facility] ([facility])[address] [address] ERYTHROCYTE MEAN CORPUSCULAR HEMOGLOBIN CONCENTRATION (G/DL) BY AUTOMATED 34.1 g/dL Normal 32.0-35.0 [facility] Comment on above: Performed By: #### L [id number] ####[facility] ([facility])[address], [place] [address] Hematocrit (Bld) [Volume fraction] 24.9 % Low 39.0-55.0 [facility] Comment on above: Performed By: #### L [id number] ####[facility], [place] [address] Hemoglobin (Bld) [Mass/Vol] 8.5 g/dL Low 13.0-17.0 [facility] Comment on above: Performed By: #### L [id number] ####[facility], [place] [address] IMMATURE PLATELET FRACTION % 5.1 % Normal 0.8-6.3 [facility] Comment on above: Performed By: #### L [id number] ####[facility] [place] [address] MCH (RBC) [Entitic mass] 30.7 pg Normal 27.0-33.0 [facility] Comment on above: Performed By: #### L [id number] ####[facility] ([facility])[address] [address] MCV (RBC) [Entitic vol] 89.9 fL Normal 82.0-98.0 [facility] Comment on above: Performed By: #### L [id number] ####[facility] [address] PLATELETS (10*3/UL) IN BLOOD AUTOMATED COUNT 55 10*3/uL Low 150-400 [facility] Comment on above: Performed By: #### L [id number] ####[facility] [place] [address] RBC (Bld) [#/Vol] 2.77 10*6/uL Low 4.20-5.70 [facility] Comment on above: Performed By: #### L [id number] ####[facility] [place] [address] WBC (Bld) [#/Vol] 9.29 10*3/uL Normal 4.00-10.60 [facility] Comment on above: Performed By: #### L [id number] ####[facility] ([facility])[address] [place] [address] Erythrocyte distribution width (RBC) [Ratio] 14.6 % Normal 11.5-15.0 [facility] Comment on above: Performed By: #### L [id number] ####[facility] ([facility])[address] [place] [address] ERYTHROCYTE MEAN CORPUSCULAR HEMOGLOBIN CONCENTRATION (G/DL) BY AUTOMATED 34.1 g/dL Normal 32.0-35.0 [facility] Comment on above: Performed By: #### L [id number] ####[facility] ([facility])[address] [place] [address] Hematocrit (Bld) [Volume fraction] 25.5 % Low 39.0-55.0 [facility] Comment on above: Performed By: #### L [id number] ####[facility] ([facility])[address] [place] [address] Hemoglobin (Bld) [Mass/Vol] 8.7 g/dL Low 13.0-17.0 [facility] Comment on above: Performed By: #### L [id number] ####[facility] ([facility])[address] [place] [address] IMMATURE PLATELET FRACTION % 5.5 % Normal 0.8-6.3 [facility] Comment on above: Performed By: #### L [id number] ####[facility] ([facility])[address] [place] [address] MCH (RBC) [Entitic mass] 31.0 pg Normal 27.0-33.0 [facility] Comment on above: Performed By: #### L [id number] ####[facility] ([facility])[address] [place] [address] MCV (RBC) [Entitic vol] 90.7 fL Normal 82.0-98.0 [facility] Comment on above: Performed By: #### L [id number] ####[facility] ([facility])[address] [place] [address] PLATELETS (10*3/UL) IN BLOOD AUTOMATED COUNT 56 10*3/uL Low 150-400 [facility] Comment on above: Result Comment: P=[id number] , 1D Performed By: #### L [id number] ####[facility] ([facility])[address] [place] [address] RBC (Bld) [#/Vol] 2.81 10*6/uL Low 4.20-5.70 [facility] Comment on above: Performed By: #### L [id number] ####[facility] [place] [address] WBC (Bld) [#/Vol] 10.33 10*3/uL Normal 4.00-10.60 [facility] Comment on above: Performed By: #### L [id number] ####[facility] (BEAKER)[address] [place] [address] CO-OXIMETRYon 04-25-2023 CARBOXYHEMOGLOBIN/ HEMOGLOBIN TOTAL % IN BLOOD 0.8 % Normal [facility] Comment on above: Performed By: #### L [id number] ####[facility] [id number] [place] [address] [facility] Hemoglobin (Bld) [Mass/Vol] 7.8 g/dL Normal [facility] [facility] Comment on above: Performed By: #### L [id number] ####[facility]IR[facility] [id number] [place] [address] [place] METHEMOGLOBIN/100 IN BLOOD 1.1 % Normal 0.0-1.5 [facility] Comment on above: Performed By: #### L [id number] ####[facility] [id number] [place] [address] [place] Oxygen saturation in Blood 70.2 % Normal [facility] Comment on above: Performed By: #### L [id number] ####[facility] [id number] [place] [address] [place] OXYGENATED HEMOGLOBIN IN BLOOD 68.8 % Normal [facility] Comment on above: Performed By: #### L [id number] ####[facility] [id number] [place] [address] [facility] HEPATIC FUNCTION PANELon Albumin [Mass/Vol] 3.3 g/dL Low 3.5-5.7 [facility] Comment on above: Performed By: #### L [id number] ####[facility] LAB (BEAKER)[address] [place] [address] ALP [Catalytic activity/Vol] 49 U/L Normal 34-104 [facility] Comment on above: Performed By: #### L [id number] ####[facility] (BEAKER)[address] [place] [address] ALT [Catalytic activity/Vol] 60 U/L High 7-52 [facility] Comment on above: Performed By: #### L [id number] ####[facility] ([facility])[address] [place] [address] AST [Catalytic activity/Vol] 127 U/L High 13-39 [facility] Comment on above: Performed By: #### L [id number] ####[facility] ([facility])[address] [place] [address] Bilirubin [Mass/Vol] 0.5 mg/dL Normal 0.3-1.0 [facility] Comment on above: Performed By: #### L [id number] ####[facility] ([facility])[address] [place] [address] Magnesium [Mass/Vol] 0.2 mg/dL Normal 0-0.2 [facility] Comment on above: Performed By: #### L [id number] ####[facility] ([facility])[address] [place] [address] Protein [Mass/Vol] 4.8 g/dL Low 6.0-8.3 [facility] Comment on above: Performed By: #### L [id number] ####[facility] ([facility])[address] [place] [address] LACTIC ACID WITH 4 HOUR REFL EXon 04-25-2023 LACTATE (MMOL/L) IN SER/PLAS 1.4 mmol/L Normal 0.5-2.2 [facility] Comment on above: Performed By: #### L [id number] ####[facility] ([facility])[address] [place] [address] MAGNESIUMon 04-25-2023 Magnesium [Mass/Vol] 1.7 mg/dL Low 1.9-2.7 [facility] Comment on above: Performed By: #### L [id number] ####[facility] ([facility])[address] [place] [address] NURSNOTEon 04-25-2023 NURSNOTE Normal [facility] NURSNOTE Normal [facility] PHOSPHORUSon 04-25-2023 Magnesium [Mass/Vol] 2.3 mg/dL Low 2.5-5.0 [facility] Comment on above: Performed By: #### L [id number] ####[facility] ([employer])[address] [place] [address] POCT GLUCOSE METER UNSOLICIT ED RESULTSon 04-25-2023 Glucose [Mass/Vol] 106 mg/dL High 70-105 [facility] Comment on above: Order Comment: Waive d Testing in the ED is performed under the ED CLIA certificate #[id number]. Result Comment: [email or web address] [email or web address] Performed By: #### L [id number] ####[facility] ([employer])[address] [place] [address] Glucose [Mass/Vol] 128 mg/dL High 70-105 [facility] Comment on above: Order Comment: Waive d Testing in the ED is performed under the ED CLIA certificate #[id number]. Result Comment: [email or web address] Performed By: #### L [id number] ####[facility] ([employer])[address] [place] [address] PROTIME-INRon 04-25-2023 INR IN PPP BY COAGULATION ASSAY 1.34 High 0.90-1.10 [facility] Comment on above: Result Comment: ACCC P [...] CHEST 1995;108:231S-246S. Performed By: #### L [id number] ####[facility] ([employer])[address] [place] [address] PROTHROMBIN TIME (PT) IN PPP BY COAGULATION ASSAY 16.6 Seconds High 12.3-14.8 [facility] Comment on above: Performed By: #### L [id number] ####[facility] ([employer])[address] [place] [address] INR IN PPP BY COAGULATION ASSAY 1.39 High 0.90-1.10 [facility] Comment on above: Result Comment: ACCC P [...] CHEST 1995;108:[id number]-246S. Performed By: #### L [id number] ####[facility] ([employer])[address] [place] [address] PROTHROMBIN TIME (PT) IN PPP BY COAGULATION ASSAY 17.1 Seconds High 12.3-14.8 [facility] Comment on above: Performed By: #### L [id number] ####[facility] (BEAKER)[address] [place] [address] 30on 04-24-2023 30 Normal [facility] 30 Normal [facility] 30 Normal [facility] ARTERIAL BLOOD GAS WITH IONI ZED CALCIUMon 04-24-2023 Base excess Calc (Bld) [Moles/Vol] -2.0000 mmol/L Normal -2.0-3.0 [facility] Comment on above: Performed By: #### L [id number] ####[facility]ORY [id number] [place] [address] [facility] CALCIUM IONIZED (MMOL/L) IN BLOOD 1.06 mmol/L Low 1.15-1.33 [facility] Comment on above: Performed By: #### L [id number] ####[facility]IR[facility] [id number] [place] [address] [place] CO2 (Bld) [Partial pressure] 31 mm[Hg] Low 35-48 [facility] Comment on above: Performed By: #### L [id number] ####[facility] RESPIR[facility]ORY [id number] [place] [address] [place] HCO3 (Bld) [Moles/Vol] 21.5 mmol/L Normal 21.0-28.0 [facility] Comment on above: Performed By: #### L [id number] ####[facility] RESPIRATORY [id number] [place] [address] [place] Oxygen (Bld) [Partial pressure] 118 mm[Hg] High 83-100 [facility] Comment on above: Performed By: #### L [id number] ####[facility] RESPIRATORY [id number] [place] [address] [place] OXYGEN SATURATION (%) IN ARTERIAL BLOOD 99.4 % High 94.0-98.0 [facility] Comment on above: Performed By: #### L [id number] ####[facility] RESPIR[facility]ORY [id number] [place] [address] [place] pH (Bld) 7.45 [pH] Normal 7.35-7.45 [facility] Comment on above: Performed By: #### L [id number] ####[facility] RESPIRATORY [id number] [place] [address] [facility] SOURCE OF OXYGEN AC/VC Normal [facility] Comment on above: Performed By: #### L [id number] ####[facility] RESPIRATORY [id number] [place] [address] [place] TIDAL VOLUME (VT) CC 8 Normal [facility] Comment on above: Performed By: #### L [id number] ####[facility] RESPIRATORY [id number] [place] [address] [facility] BASIC METABOLIC PANELon 11-0 Anion gap [Moles/Vol] 10 mmol/L Normal 7-20 [facility] Comment on above: Performed By: #### L [id number] ####[facility] (BEAKER)[address] [place] [address] Calcium [Mass/Vol] 8.5 mg/dL Low 8.6-10.3 [facility] Comment on above: Performed By: #### L [id number] ####[facility] (BEAKER)[address] [place] [address] Chloride [Moles/Vol] 113 mmol/L High 98-107 [facility] Comment on above: Performed By: #### L [id number] ####[facility] (BEAKER)[address] [place] [address] CO2 [Moles/Vol] 24 mmol/L Normal 21-31 [facility] Comment on above: Performed By: #### L [id number] ####[facility] (BEAKER)[address] [place] [address] Creatinine [Mass/Vol] 0.83 mg/dL Normal 0.70-1.30 [facility] Comment on above: Performed By: #### L [id number] ####[facility] (BEAKER)[address] [place] [address] GLOMERULAR FILTRATION RATE ML/MIN/1.73 SQ M.PREDICTED 94.7 mL/min/1.73m*2 Normal >60.0 [facility] Comment on above: Result Comment: The [facility]???s estimated glomerular filtration rate (eGFR) will no [...] of individuals. Performed By: #### L [id number] ####[facility] ([facility])[address] [place] [address] Glucose [Mass/Vol] 208 mg/dL High 70-100 [facility] Comment on above: Performed By: #### L [id number] ####[facility] ([facility])[address] [place] [address] Potassium [Moles/Vol] 3.6 mmol/L Normal 3.5-5.1 [facility] Comment on above: Performed By: #### L [id number] ####[facility] (BEAKER)[address] [place] [address] Sodium [Moles/Vol] 143 mmol/L Normal 136-145 [facility] Comment on above: Performed By: #### L [id number] ####[facility] (BEAKER)[address] [place] [address] Urea nitrogen [Mass/Vol] 19 mg/dL Normal 7-25 [facility] Comment on above: Performed By: #### L [id number] ####[facility] (BEAKER)[address] [place] [address] UREA NITROGEN/CREATININ E (MASS RATIO) IN SER/PLAS 22.9 Normal [facility] Comment on above: Performed By: #### L [id number] ####[facility] (BEAKER)[address] [place] [address] CALCIUM, IONIZEDon 3 CALCIUM IONIZED (MMOL/L) IN BLOOD 1.20 mmol/L Normal 1.15-1.33 [facility] Comment on above: Performed By: #### C ALCIUM, IONIZED ####[facility] RESPIRATORY [id number] [place] [address] [place] CBCon 04-24-2023 Erythrocyte distribution width (RBC) [Ratio] 13.9 % Normal 11.5-15.0 [facility] Comment on above: Performed By: #### L [id number] ####[facility] (BEAKER)[address] [place] [address] ERYTHROCYTE MEAN CORPUSCULAR HEMOGLOBIN CONCENTRATION (G/DL) BY AUTOMATED 34.3 g/dL Normal 32.0-35.0 [facility] Comment on above: Performed By: #### L [id number] ####[facility] (BEAKER)[address] [place] [address] Hematocrit (Bld) [Volume fraction] 28.0 % Low 39.0-55.0 [facility] Comment on above: Performed By: #### L [id number] ####[facility] (BEAKER)[address] [place] [address] Hemoglobin (Bld) [Mass/Vol] 9.6 g/dL Low 13.0-17.0 [facility] Comment on above: Performed By: #### L [id number] ####[facility] (BEAKER)[address] [place] [address] IMMATURE PLATELET FRACTION % 5.1 % Normal 0.8-6.3 [facility] Comment on above: Performed By: #### L [id number] ####[facility] (BEAKER)[address] [place] [address] MCH (RBC) [Entitic mass] 30.7 pg Normal 27.0-33.0 [facility] Comment on above: Performed By: #### L [id number] ####[facility] (BEAKER)[address] [place] [address] MCV (RBC) [Entitic vol] 89.5 fL Normal 82.0-98.0 [facility] Comment on above: Performed By: #### L [id number] ####[facility] (BEAKER)[address] [place] [address] PLATELETS (10*3/UL) IN BLOOD AUTOMATED COUNT 69 10*3/uL Low 150-400 [facility] Comment on above: Performed By: #### L [id number] ####[facility] ([facility])[address] [place] [address] RBC (Bld) [#/Vol] 3.13 10*6/uL Low 4.20-5.70 [facility] Comment on above: Performed By: #### L [id number] ####[facility] ([facility])[address] [place] [address] WBC (Bld) [#/Vol] 16.62 10*3/uL High 4.00-10.60 [facility] Comment on above: Performed By: #### L [id number] ####[facility] ([facility])[address] [place] [address] CO-OXIMETRYon 04-24-2023 CARBOXYHEMOGLOBIN/ HEMOGLOBIN TOTAL % IN BLOOD 1.2 % Normal [facility] Comment on above: Performed By: #### L [id number] ####[facility] RESPIRATORY [id number] [place] [address] [place] Hemoglobin (Bld) [Mass/Vol] 9.6 g/dL Normal [facility] Comment on above: Performed By: #### L [id number] ####[facility] RES[facility]IR[facility]ORY [id number] [place] [address] [place] METHEMOGLOBIN/100 IN BLOOD 0.4 % Normal 0.0-1.5 [facility] Comment on above: Performed By: #### L [id number] ####[facility] RESPIRATORY [id number] [facility] [address] [place] Oxygen saturation in Blood 67.5 % Normal [facility] Comment on above: Performed By: #### L [id number] ####[facility] RESPIRATORY [id number] [place] [address] [place] OXYGENATED HEMOGLOBIN IN BLOOD 66.4 % Normal [facility] Comment on above: Performed By: #### L [id number] ####[facility] RESPIRATORY [id number] [place] [address] [place] HEMOGLOBIN AND HEMATOCRIT, B LOODon 04-24-2023 Hematocrit (Bld) [Volume fraction] 28.1 % Low 39.0-55.0 [facility] Comment on above: Performed By: #### L [id number] ####[facility] (BEAKER)[address] [place] [address] Hemoglobin (Bld) [Mass/Vol] 9.5 g/dL Low 13.0-17.0 [facility] Comment on above: Performed By: #### L [id number] ####[facility] ([facility])[address] [place] [address] HEPATIC FUNCTION PANELon Albumin [Mass/Vol] 3.7 g/dL Normal 3.5-5.7 [facility] Comment on above: Performed By: #### L [id number] ####[facility] (BEAKER)[address] [place] [address] ALP [Catalytic activity/Vol] 39 U/L Normal 34-104 [facility] Comment on above: Performed By: #### L [id number] ####[facility] (BEAKER)[address] [place] [address] ALT [Catalytic activity/Vol] 82 U/L High 7-52 [facility] Comment on above: Performed By: #### L [id number] ####[facility] (BEAKER)[address] [place] [address] AST [Catalytic activity/Vol] 229 U/L High 13-39 [facility] Comment on above: Performed By: #### L [id number] ####[facility] (BEAKER)[address] [place] [address] Bilirubin [Mass/Vol] 0.5 mg/dL Normal 0.3-1.0 [facility] Comment on above: Performed By: #### L [id number] ####[facility] ([facility])[address] [place] [address] Magnesium [Mass/Vol] 0.2 mg/dL Normal 0-0.2 [facility] Comment on above: Performed By: #### L [id number] ####[facility] ([facility] [place] [address] Protein [Mass/Vol] 4.9 g/dL Low 6.0-8.3 [facility] Comment on above: Performed By: #### L [id number] ####[facility] ([facility])[address] [place] [address] LACTIC ACID WITH 4 HOUR REFL EXon 04-24-2023 LACTATE (MMOL/L) IN SER/PLAS 1.3 mmol/L Normal 0.5-2.2 [facility] Comment on above: Performed By: #### L [id number] ####[facility] ([facility])[address] [place] [address] Performed By: #### L [id number] ####[facility] ([facility])[address] [place] [address] LACTATE (MMOL/L) IN SER/PLAS 4.0 mmol/L Critically high 0.5-2.2 [facility] Comment on above: Result Comment: Prev ious result verified on 04/23/2023 2300 on specimen/case [id number] called with component Lactate blood venous for procedure Lactic acid, venous, whole blood with value 9.1 mmol/L. Performed By: #### L [id number] ####[facility] ([facility])[address] [place] [address] LACTATE (MMOL/L) IN SER/PLAS 9.1 mmol/L Critically high 0.5-2.2 [facility] Comment on above: Result Comment: Prev ious result verified on 04/23/2023 2137 on specimen/case [id number] called with component Lactate blood venous for procedure Lactic acid, venous, whole blood with value 12.1 mmol/L. Performed By: #### L [id number] ####[facility] ([facility])[address] [place] [address] MAGNESIUMon 04-24-2023 Magnesium [Mass/Vol] 1.8 mg/dL Low 1.9-2.7 [facility] Comment on above: Performed By: #### L [id number] ####[facility] ([facility])[address] [place] [address] MYOGLOBIN, URINEon 3 MYOGLOBIN URINE 2 mg/L High 0-[facility] Comment on above: Result Comment: The [...] was developed and its performance characteristicsdetermined by [employer]. It has not been cleared orapproved by the [place] Food and Drug Administration. This test wasperformed in a CLIA certified laboratory and is intended forclinical purposes.Performed By: [facility] [place], [place] [id number] Director: Wenceslao Healy MD, PhDCLIA Number: [id number] Performed By: #### L [id number] ####[facility] ([facility])[address] [place] [address] POCT GLUCOSE METER UNSOLICIT ED RESULTSon 04-24-2023 Glucose [Mass/Vol] 129 mg/dL High 70-105 [facility] Comment on above: Order Comment: Waive d Testing in the ED is performed under the ED CLIA certificate #[id number]. Result Comment: [email or web address] [email or web address] Performed By: #### L [id number] ####[facility] ([facility] [place] [address] Glucose [Mass/Vol] 116 mg/dL High 70-105 [facility] Comment on above: Order Comment: Waive d Testing in the ED is performed under the ED CLIA certificate #[id number]. Result Comment: [email or web address] [email or web address] Performed By: #### L [id number] ####[facility] (BEAKER)[address] [place] [address] Glucose [Mass/Vol] 106 mg/dL High 70-105 [facility] Comment on above: Order Comment: Waive d Testing in the ED is performed under the ED CLIA certificate #[id number]. Result Comment: nhay man Performed By: #### L [id number] ####[facility] (BEAKER)[address] [place] [address] Glucose [Mass/Vol] 113 mg/dL High 70-105 [facility] Comment on above: Order Comment: Waive d Testing in the ED is performed under the ED CLIA certificate #[id number]. Result Comment: nhay man Performed By: #### L [id number] ####[facility] (BEAKER)[address] [place] [address] Glucose [Mass/Vol] 118 mg/dL High 70-105 [facility] Comment on above: Order Comment: Waive d Testing in the ED is performed under the ED CLIA certificate #[id number]. Result Comment: nhay man Performed By: #### L [id number] ####[facility] (BEAKER)[address] [place] [address] Glucose [Mass/Vol] 75 mg/dL Normal 70-105 [facility] Comment on above: Order Comment: Waive d Testing in the ED is performed under the ED CLIA certificate #[id number]. Result Comment: nhay man Performed By: #### L [id number] ####[facility] (BEAKER)[address] [place] [address] Glucose [Mass/Vol] 163 mg/dL High 70-105 [facility] Comment on above: Order Comment: Waive d Testing in the ED is performed under the ED CLIA certificate #[id number]. Result Comment: than sen2 Performed By: #### L [id number] ####[facility] (BEAKER)[address] [place] [address] Glucose [Mass/Vol] 176 mg/dL High 70-105 [facility] Comment on above: Order Comment: Waive d Testing in the ED is performed under the ED CLIA certificate #[id number]. Result Comment: than sen2 Performed By: #### L [id number] ####[facility] (AKER)[address] [place] [address] Glucose [Mass/Vol] 147 mg/dL High 70-105 [facility] Comment on above: Order Comment: Waive d Testing in the ED is performed under the ED CLIA certificate #[id number]. Result Comment: [email or web address] Performed By: #### L [id number] ####[facility] ([facility])[address] [place] [address] Glucose [Mass/Vol] 199 mg/dL High 70-105 [facility] Comment on above: Order Comment: Waive d Testing in the ED is performed under the ED CLIA certificate #[id number]. Result Comment: [email or web address] Performed By: #### L [id number] ####[facility] (AKER)[address] [place] [address] Glucose [Mass/Vol] 202 mg/dL High 70-105 [facility] Comment on above: Order Comment: Waive d Testing in the ED is performed under the ED CLIA certificate #[id number]. Result Comment: than sen2 Performed By: #### L [id number] ####[facility] (BEAKER)[address] [place] [address] Glucose [Mass/Vol] 233 mg/dL High 70-105 [facility] Comment on above: Order Comment: Waive d Testing in the ED is performed under the ED CLIA certificate #[id number]. Result Comment: than sen2 Performed By: #### L [id number] ####[facility] (BEAKER)[address] [place] [address] Glucose [Mass/Vol] 253 mg/dL High 70-105 [facility] Comment on above: Order Comment: Waive d Testing in the ED is performed under the ED CLIA certificate #[id number]. Result Comment: [email or web address] Performed By: #### L [id number] ####[facility] (BEAKER)[address] [place] [address] Glucose [Mass/Vol] 279 mg/dL High 70-105 [facility] Comment on above: Order Comment: Waive d Testing in the ED is performed under the ED CLIA certificate #[id number]. Result Comment: than sen2 Performed By: #### L [id number] ####[facility] (BE[facility]ER)[address] [place] [address] Glucose [Mass/Vol] 270 mg/dL High 70-105 [facility] Comment on above: Order Comment: Waive d Testing in the ED is performed under the ED CLIA certificate #[id number]. Result Comment: than sen2 Performed By: #### L [id number] ####[facility] (BE[facility]ER)[address] [facility] [address] Glucose [Mass/Vol] 267 mg/dL High 70-105 [facility] Comment on above: Order Comment: Waive d Testing in the ED is performed under the ED CLIA certificate #[id number]. Result Comment: [email or web address] Performed By: #### L [id number] ####[facility] (BEAKER)[address] [place] [address] POTASSIUM, WHOLE BLOODon Potassium [Moles/Vol] 4.4 mmol/L Normal 3.5-5.1 [facility] Comment on above: Performed By: #### P OTASSIUM, WHOLE BLOOD ####[facility] [id number] [place] [address] [place] SODIUM, WHOLE BLOODon 2022 SODIUM, WHOLE BLOOD 141 Normal 136-145 [facility] Comment on above: Performed By: #### S ODIUM, WHOLE BLOOD ####[facility] [id number] [place] [address] [place] TROPONIN Ion 04-24-2023 Troponin I.cardiac [Mass/Vol] 34.92 ng/mL Critically high 0.00-0.04 [facility] Comment on above: Result Comment: Prev ious result verified on 04/23/2023 2259 on specimen/case [id number] called with component Troponin I for procedure Troponin I with value 22.65 ng/mL. Performed By: #### L [id number] ####[facility] ([facility])[address] [place] [address] 30on 04-23-2023 30 Normal [facility] 30 Normal [facility] AMYLASEon 04-23-2023 Amylase [Catalytic activity/Vol] 86 U/L Normal 29-103 [facility] Comment on above: Performed By: #### L [id number] ####[facility] ([facility])[address] [place] [address] APTTon 04-23-2023 ACTIVATED PARTIAL THROMBOPLASTIN TIME IN PPP BY COAGULATION ASSAY 45.1 Seconds High 25.0-35.0 [facility] Comment on above: Result Comment: Clin ical significance of the APTT is questionable in the presence of heparin. Performed By: #### L [id number] ####[facility] ([facility])[address] [place] [address] ACTIVATED PARTIAL THROMBOPLASTIN TIME IN PPP BY COAGULATION ASSAY 49.0 Seconds High 25.0-35.0 [facility] Comment on above: Result Comment: Clin ical significance of the APTT is questionable in the presence of heparin. Performed By: #### L [id number] ####[facility] ([facility])[address] [place] [address] ARTERIAL BLOOD GAS WITH IONI ZED CALCIUMon 04-23-2023 Base excess Calc (Bld) [Moles/Vol] -16.37412 mmol/L Low -2.0-3.0 [facility] Comment on above: Performed By: #### L [id number] ####[facility] [id number] [place] [address] [facility] CALCIUM IONIZED (MMOL/L) IN BLOOD 1.15 mmol/L Normal 1.15-1.33 [facility] Comment on above: Performed By: #### L [id number] ####[facility] [id number] [place] [address] [facility] CO2 (Bld) [Partial pressure] 20 mm[Hg] Invalid Interpretation Code 35-48 [facility] Comment on above: Performed By: #### L [id number] ####[facility] [id number] [place] [address] [facility] HCO3 (Bld) [Moles/Vol] 8.8 mmol/L Low 21.0-28.0 [facility] Comment on above: Performed By: #### L [id number] ####[facility] [id number] [place] [address] [place] LPM 2 Normal [facility] Comment on above: Performed By: #### L [id number] ####[facility] [id number] [place] [address] [place] Oxygen (Bld) [Partial pressure] 67 mm[Hg] Low 83-100 [facility] Comment on above: Performed By: #### L [id number] ####[facility] [id number] [place] [address] [facility] OXYGEN SATURATION (%) IN ARTERIAL BLOOD 93.6 % Low 94.0-98.0 [facility] Comment on above: Performed By: #### L [id number] ####[facility] [id number] [place] [address] [place] pH (Bld) 7.25 [pH] Low 7.35-7.45 [facility] Comment on above: Performed By: #### L [id number] ####[facility] [id number] [place] [address] [facility] SOURCE OF OXYGEN Nasal cannula Normal [facility] Comment on above: Performed By: #### L [id number] ####[facility] [id number] [place] [address] [facility] Base excess Calc (Bld) [Moles/Vol] -15.67191 mmol/L Low -2.0-3.0 [facility] Comment on above: Order Comment: On ar rival to CVU Performed By: #### L [id number] ####[facility] [id number] [place] [address] [facility] CALCIUM IONIZED (MMOL/L) IN BLOOD 1.16 mmol/L Normal 1.15-1.33 [facility] Comment on above: Order Comment: On ar rival to CVU Performed By: #### L [id number] ####[facility] [id number] [place] [address] [facility] CO2 (Bld) [Partial pressure] 21 mm[Hg] Invalid Interpretation Code 35-48 [facility] Comment on above: Order Comment: On ar rival to CVU Performed By: #### L [id number] ####[facility] [id number] [place] [address] [facility] HCO3 (Bld) [Moles/Vol] 9.6 mmol/L Low 21.0-28.0 [facility] Comment on above: Order Comment: On ar rival to CVU Performed By: #### L [id number] ####[facility] [id number] [place] [address] [facility] Oxygen (Bld) [Partial pressure] 63 mm[Hg] Low 83-100 [facility] Comment on above: Order Comment: On ar rival to CVU Performed By: #### L [id number] ####[facility] [id number] [place] [address] [place] OXYGEN SATURATION (%) IN ARTERIAL BLOOD 92.2 % Low 94.0-98.0 [facility] Comment on above: Order Comment: On ar rival to CVU Performed By: #### L [id number] ####[facility] [id number] [place] [address] [facility] pH (Bld) 7.27 [pH] Low 7.35-7.45 [facility] Comment on above: Order Comment: On ar rival to CVU Performed By: #### L [id number] ####[facility] [id number] [place] [address] [place] SOURCE OF OXYGEN Nasal cannula Normal [facility] Comment on above: Order Comment: On ar rival to CVU Performed By: #### L [id number] ####[facility] [id number] [place] [address] [facility] Anesthesiaon 04-23-2023 Anesthesia [id number] Gui Ortiz 1955 M Date Provider Department Center 04/23/2023 KAUSHAL FINLEY [facility] S[facility] None Family History Family history unknown: Yes Normal [facility] BASIC METABOLIC PANELon 11-0 Anion gap [Moles/Vol] 10 mmol/L Normal 7-20 [facility] Comment on above: Performed By: #### L [id number] ####[facility] (BEAKER)[address] [place] [address] Calcium [Mass/Vol] 8.4 mg/dL Low 8.6-10.3 [facility] Comment on above: Performed By: #### L [id number] ####[facility] (BEAKER)[address] [place] [address] Chloride [Moles/Vol] 114 mmol/L High 98-107 [facility] Comment on above: Performed By: #### L [id number] ####[facility] (BEAKER)[address] [place] [address] CO2 [Moles/Vol] 25 mmol/L Normal 21-31 [facility] Comment on above: Performed By: #### L [id number] ####[facility] (BEAKER)[address] [place] [address] Creatinine [Mass/Vol] 0.86 mg/dL Normal 0.70-1.30 [facility] Comment on above: Performed By: #### L [id number] ####[facility] (BEAKER)[address] [place] [address] GLOMERULAR FILTRATION RATE ML/MIN/1.73 SQ M.PREDICTED 93.7 mL/min/1.73m*2 Normal >60.0 [facility] Comment on above: Result Comment: The [facility]???s estimated glomerular filtration rate (eGFR) will no [...] of individuals. Performed By: #### L [id number] ####[facility] ([facility])[address] [place] [address] Glucose [Mass/Vol] 86 mg/dL Normal 70-100 [facility] Comment on above: Performed By: #### L [id number] ####[facility] ([facility])[address] [place] [address] Potassium [Moles/Vol] 3.9 mmol/L Normal 3.5-5.1 [facility] Comment on above: Performed By: #### L [id number] ####[facility] ([facility])[address] [place] [address] Sodium [Moles/Vol] 145 mmol/L Normal 136-145 [facility] Comment on above: Performed By: #### L [id number] ####[facility] ([facility])[address] [place] [address] Urea nitrogen [Mass/Vol] 19 mg/dL Normal 7-25 [facility] Comment on above: Performed By: #### L [id number] ####[facility] ([facility])[address] [place] [address] UREA NITROGEN/CREATININ E (MASS RATIO) IN SER/PLAS 22.1 Normal [facility] Comment on above: Performed By: #### L [id number] ####[facility] (BEAKER)[address] [place] [address] CALCIUM, IONIZEDon CALCIUM IONIZED (MMOL/L) IN BLOOD 1.21 mmol/L Normal 1.15-1.33 [facility] Comment on above: Performed By: #### C ALCIUM, IONIZED ####[facility] [id number] [place] [address] [facility] CALCIUM IONIZED (MMOL/L) IN BLOOD 1.19 mmol/L Normal 1.15-1.33 [facility] Comment on above: Performed By: #### C ALCIUM, IONIZED ####[facility] [id number] [place] [address] [facility] CALCIUM IONIZED (MMOL/L) IN BLOOD 1.07 mmol/L Low 1.15-1.33 [facility] Comment on above: Performed By: #### C ALCIUM, IONIZED ####[facility] [id number] [place] [address] [facility] CBCon 04-23-2023 Erythrocyte distribution width (RBC) [Ratio] 13.3 % Normal 11.5-15.0 [facility] Comment on above: Performed By: #### L [id number] ####[facility] ([facility])[address] [place] [address] ERYTHROCYTE MEAN CORPUSCULAR HEMOGLOBIN CONCENTRATION (G/DL) BY AUTOMATED 34.2 g/dL Normal 32.0-35.0 [facility] Comment on above: Performed By: #### L [id number] ####[facility] ([facility])[address] [place] [address] Hematocrit (Bld) [Volume fraction] 22.5 % Low 39.0-55.0 [facility] Comment on above: Performed By: #### L [id number] ####[facility] ([facility])[address] [place] [address] Hemoglobin (Bld) [Mass/Vol] 7.7 g/dL Low 13.0-17.0 [facility] Comment on above: Result Comment: Resu lts checked Performed By: #### L [id number] ####[facility] ([facility])[address], [place] [address] IMMATURE PLATELET FRACTION % 2.5 % Normal 0.8-6.3 [facility] Comment on above: Performed By: #### L [id number] ####[facility] ([facility])[address] [place] [address] MCH (RBC) [Entitic mass] 31.3 pg Normal 27.0-33.0 [facility] Comment on above: Performed By: #### L [id number] ####[facility] ([facility])[address] [place] [address] MCV (RBC) [Entitic vol] 91.5 fL Normal 82.0-98.0 [facility] Comment on above: Performed By: #### L [id number] ####[facility] ([facility])[address] [place] [address] PLATELETS (10*3/UL) IN BLOOD AUTOMATED COUNT 80 10*3/uL Low 150-400 [facility] Comment on above: Result Comment: Plt est 74 ok Performed By: #### L [id number] ####[facility] ([facility])[address] [place] [address] RBC (Bld) [#/Vol] 2.46 10*6/uL Low 4.20-5.70 [facility] Comment on above: Performed By: #### L [id number] ####[facility] ([facility])[address] [place] [address] WBC (Bld) [#/Vol] 7.84 10*3/uL Normal 4.00-10.60 [facility] Comment on above: Performed By: #### L [id number] ####[facility] ([facility])[address] [place] [address] CBC WITH AUTO DIFFERENTIALon 04-23-2023 Erythrocyte distribution width (RBC) [Ratio] 14.0 % Normal 11.5-15.0 [facility] Comment on above: Performed By: #### L [id number] ####[facility] (BEAKER)[address] [place] [address] ERYTHROCYTE MEAN CORPUSCULAR HEMOGLOBIN CONCENTRATION (G/DL) BY AUTOMATED 33.9 g/dL Normal 32.0-35.0 [facility] Comment on above: Performed By: #### L [id number] ####[facility] (BEAKER)[address] [place] [address] Hematocrit (Bld) [Volume fraction] 18.0 % Low 39.0-55.0 [facility] Comment on above: Performed By: #### L [id number] ####[facility] [place] [address] Hemoglobin (Bld) [Mass/Vol] 6.1 g/dL Low 13.0-17.0 [facility] Comment on above: Performed By: #### L [id number] ####[facility] [place] [address] IMMATURE PLATELET FRACTION % 3.6 % Normal 0.8-6.3 [facility] Comment on above: Performed By: #### L [id number] ####[facility] [place] [address] MCH (RBC) [Entitic mass] 31.4 pg Normal 27.0-33.0 [facility] Comment on above: Performed By: #### L [id number] ####[facility] (BEAKER)[address] [place] [address] MCV (RBC) [Entitic vol] 92.8 fL Normal 82.0-98.0 [facility] Comment on above: Performed By: #### L [id number] ####[facility] (BEAKER)[address] [place] [address] NRBC (PER 100 WBCS) BY AUTOMATED COUNT 0.0 % Normal 0 [facility] Comment on above: Performed By: #### L [id number] ####[facility] (BEAKER)[address] [place] [address] PLATELETS (10*3/UL) IN BLOOD AUTOMATED COUNT 68 10*3/uL Low 150-400 [facility] Comment on above: Performed By: #### L [id number] ####[facility] [place] [address] RBC (Bld) [#/Vol] 1.94 10*6/uL Low 4.20-5.70 [facility] Comment on above: Performed By: #### L [id number] ####[facility] ([facility])[address] [place] [address] WBC (Bld) [#/Vol] 12.79 10*3/uL High 4.00-10.60 [facility] Comment on above: Performed By: #### L [id number] ####[facility] ([facility])[address] [place] [address] CK TOTAL AND CKMBon 04-23-20 CREATINE KINASE (U/L) IN SER/PLAS 4110.0 U/L High 30.0-223.0 [facility] Comment on above: Performed By: #### L [id number] ####[facility] ([facility])[address] [place] [address] CREATINE KINASE MB/CREATINE KINASE TOTAL BY CALCULATION 2.9 High <=1.9 [facility] Comment on above: Performed By: #### L [id number] ####[facility] ([facility])[address] [place] [address] CREATINE KINASE-MB (NG/ML) IN SER/PLAS 122.5 ng/mL High 0.0-5.0 [facility] Comment on above: Performed By: #### L [id number] ####[facility] [place] [address] CO-OXIMETRYon 04-23-2023 CARBOXYHEMOGLOBIN/ HEMOGLOBIN TOTAL % IN BLOOD 1.3 % Normal [facility] Comment on above: Performed By: #### L [id number] ####[facility]IR[facility]ORY [id number] [place] [address] [place] Hemoglobin (Bld) [Mass/Vol] 7.8 g/dL Normal [facility] Comment on above: Performed By: #### L [id number] ####[facility] RESPIR[facility]ORY [id number] [place] [address] [place] METHEMOGLOBIN/100 IN BLOOD 1.0 % Normal 0.0-1.5 [facility] Comment on above: Performed By: #### L [id number] ####[facility] RESPIR[facility]ORY [id number] [place] [address] [place] Oxygen saturation in Blood 65.8 % Normal [facility] Comment on above: Performed By: #### L [id number] ####[facility] RESPIR[facility]ORY [id number] [place] [address] [place] OXYGENATED HEMOGLOBIN IN BLOOD 64.2 % Normal [facility] Comment on above: Performed By: #### L [id number] ####[facility] RESPIRATORY [id number] [place] [address] [facility] COMPREHENSIVE METABOLIC PANE Roddy 04-23-2023 Albumin [Mass/Vol] 3.6 g/dL Normal 3.5-5.7 [facility] Comment on above: Performed By: #### L [id number] ####[facility] (BEAKER)[address] [place] [address] ALP [Catalytic activity/Vol] 34 U/L Normal 34-104 [facility] Comment on above: Performed By: #### L [id number] ####[facility] (BEAKER)[address] [place] [address] ALT [Catalytic activity/Vol] 22 U/L Normal 7-52 [facility] Comment on above: Performed By: #### L [id number] ####[facility] (BEAKER)[address] [place] [address] Anion gap [Moles/Vol] 21 mmol/L High 7-20 [facility] Comment on above: Performed By: #### L [id number] ####[facility] (BEAKER)[address] [place] [address] AST [Catalytic activity/Vol] 132 U/L High 13-39 [facility] Comment on above: Performed By: #### L [id number] ####[facility] (BEAKER)[address] [place] [address] Bilirubin [Mass/Vol] 0.5 mg/dL Normal 0.3-1.0 [facility] Comment on above: Performed By: #### L [id number] ####[facility] (BEAKER)[address] [place] [address] Calcium [Mass/Vol] 8.1 mg/dL Low 8.6-10.3 [facility] Comment on above: Performed By: #### L [id number] ####[facility] (BEAKER)[address] [place] [address] Chloride [Moles/Vol] 109 mmol/L High 98-107 [facility] Comment on above: Performed By: #### L [id number] ####[facility] (BEAKER)[address] [place] [address] CO2 [Moles/Vol] 20 mmol/L Low 21-31 [facility] Comment on above: Performed By: #### L [id number] ####[facility] (BEAKER)[address] [place] [address] Creatinine [Mass/Vol] 1.16 mg/dL Normal 0.70-1.30 [facility] Comment on above: Performed By: #### L [id number] ####[facility] (BEAKER)[address] [place] [address] GLOMERULAR FILTRATION RATE ML/MIN/1.73 SQ M.PREDICTED 68.2 mL/min/1.73m*2 Normal >60.0 [facility] Comment on above: Result Comment: The [facility]???s estimated glomerular filtration rate (eGFR) will no [...] of individuals. Performed By: #### L [id number] ####[facility] ([facility])[address] [place] [address] Glucose [Mass/Vol] 255 mg/dL High 70-100 [facility] Comment on above: Performed By: #### L [id number] ####[facility] ([facility])[address] [place] [address] Potassium [Moles/Vol] 4.4 mmol/L Normal 3.5-5.1 [facility] Comment on above: Performed By: #### L [id number] ####[facility] ([facility])[address] [place] [address] Protein [Mass/Vol] 4.7 g/dL Low 6.0-8.3 [facility] Comment on above: Performed By: #### L [id number] ####[facility] ([facility])[address] [place] [address] Sodium [Moles/Vol] 146 mmol/L High 136-145 [facility] Comment on above: Performed By: #### L [id number] ####[facility] ([facility])[address] [place] [address] Urea nitrogen [Mass/Vol] 21 mg/dL Normal 7-25 [facility] Comment on above: Performed By: #### L [id number] ####[facility] ([facility])[address] [facility] [address] UREA NITROGEN/CREATININ E (MASS RATIO) IN SER/PLAS 18.1 [facility] Comment on above: Performed By: #### L [id number] ####[facility] ([facility])[address] [place] [address] CONSULTon 04-23-2023 CONSULT Normal [facility] CONSULT Normal [facility] FIBRINOGENon 04-23-2023 Magnesium [Mass/Vol] 258 mg/dL Normal 150-425 [facility] Comment on above: Performed By: #### L [id number] ####[facility] ([facility])[address] [place] [address] LACTIC ACID WITH 4 HOUR REFL EXon 04-23-2023 LACTATE (MMOL/L) IN SER/PLAS 12.1 mmol/L Critically high 0.5-2.2 [facility] Comment on above: Result Comment: Prev ious result verified on 04/22/2023 2146 on specimen/case [id number] called with component Lactate for procedure Lactic acid, plasma with value 2.6 mmol/L. Performed By: #### L [id number] ####[facility] ([facility])[address] [place] [address] LACTIC ACID, PLASMAon 2022 LACTATE (MMOL/L) IN SER/PLAS 2.2 mmol/L Normal 0.5-2.2 [facility] Comment on above: Performed By: #### L [id number] ####[facility] ([facility])[address] [place] [address] LIPASEon 04-23-2023 LIPASE (U/L) IN SER/PLAS 12 U/L Normal 11-82 [facility] Comment on above: Performed By: #### L [id number] ####[facility] ([facility])[address] [place] [address] MAGNESIUMon 04-23-2023 Magnesium [Mass/Vol] 1.8 mg/dL Low 1.9-2.7 [facility] Comment on above: Performed By: #### L [id number] ####[facility] ([facility])[address] [place] [address] MANUAL DIFFERENTIALon 2022 BASOPHILS (10*3/UL) IN BLOOD BY CALCULATION 0.01 10*3/uL Normal 0.00-0.20 [facility] Comment on above: Performed By: #### L [id number] ####[facility] ([facility])[address] [place] [address] BASOPHILS/100 LEUKOCYTES IN BLOOD BY AUTOMATED COUNT 0.1 % Normal 0.0-1.0 [facility] Comment on above: Performed By: #### L [id number] ####[facility] ([facility])[address] [place] [address] EOSINOPHILS (10*3/UL) IN BLOOD BY CALCULATION 0.00 10*3/uL Normal 0.00-0.50 [facility] Comment on above: Performed By: #### L [id number] ####[facility] ([facility])[address] [place] [address] EOSINOPHILS/100 LEUKOCYTES IN BLOOD BY AUTOMATED COUNT 0.0 % Normal 0.0-6.0 [facility] Comment on above: Performed By: #### L [id number] ####[facility] ([facility])[address] [place] [address] IMMATURE GRANULOCYTES (10*3/UL) IN BLOOD BY CALCULATION 0.09 10*3/uL Normal 0.00-0.20 [facility] Comment on above: Performed By: #### L [id number] ####[facility] ([facility])[address] [place] [address] IMMATURE GRANULOCYTES/100 LEUKOCYTES IN BLOOD BY AUTOMATED COUNT 0.7 % Normal 0.0-1.0 [facility] Comment on above: Performed By: #### L [id number] ####[facility] ([facility])[address] [place] [address] LYMPHOCYTES (10*3/UL) IN BLOOD BY CALCULATION 0.72 10*3/uL Low 1.20-4.00 [facility] Comment on above: Performed By: #### L [id number] ####[facility] ([facility])[address] [place] [address] LYMPHOCYTES/100 LEUKOCYTES IN BLOOD BY AUTOMATED COUNT 5.6 % Low 20.0-45.0 [facility] Comment on above: Performed By: #### L [id number] ####[facility] ([facility])[address] [place] [address] MONOCYTES (10*3/UL) IN BLOOD BY CALCUATION 0.70 10*3/uL Normal 0.10-1.00 [facility] Comment on above: Performed By: #### L [id number] ####[facility] ([facility])[address] [place] [address] MONOCYTES/100 LEUKOCYTES IN BLOOD BY AUTOMATED COUNT 5.5 % Normal 5.0-12.0 [facility] Comment on above: Performed By: #### L [id number] ####[facility] ([facility])[address] [place] [address] NEUTROPHILS (10*3/UL) IN BLOOD BY CALCULATION 11.3 10*3/uL High 1.6-7.6 [facility] Comment on above: Performed By: #### L [id number] ####[facility] ([facility])[address] [place] [address] NEUTROPHILS/100 LEUKOCYTES IN BLOOD BY AUTOMATED COUNT 88.1 % High 40.0-72.0 [facility] Comment on above: Performed By: #### L [id number] ####[facility] ([facility])[address] [place] [address] MYOGLOBIN, SERUMon 3 MYOGLOBIN (NG/ML) IN SER/PLAS 1832 ng/mL High 0-90 [facility] Comment on above: Result Comment: A DO UBLING OF VALUES FROM SERIAL BLOOD COLLECTIONS (1 - 2 HOURS APART) IS MORE INDICATIVE OF A M.I. THAN THE ABSOLUTE VALUE. Performed By: #### L [id number] ####[facility] ([facility])[address] [place] [address] PHOSPHORUSon 04-23-2023 Magnesium [Mass/Vol] 3.1 mg/dL Normal 2.5-5.0 [facility] Comment on above: Performed By: #### L [id number] ####[facility] ([facility])[address] [place] [address] POCT GLUCOSE METER UNSOLICIT ED RESULTSon 04-23-2023 Glucose [Mass/Vol] 267 mg/dL High 70-105 [facility] Comment on above: Order Comment: Waive d Testing in the ED is performed under the ED CLIA certificate #[id number]. Result Comment: than [email or web address] Performed By: #### L [id number] ####[facility] (BEAKER)[address] [place] [address] Glucose [Mass/Vol] 138 mg/dL High 70-105 [facility] Comment on above: Order Comment: Waive d Testing in the ED is performed under the ED CLIA certificate #[id number]. Result Comment: nhay man Performed By: #### L [id number] ####[facility] ([facility])[address] [place] [address] Glucose [Mass/Vol] 92 mg/dL Normal 70-105 [facility] Comment on above: Order Comment: Waive d Testing in the ED is performed under the ED CLIA certificate #[id number]. Result Comment: nhay man Performed By: #### L [id number] ####[facility] ([facility])[address] [place] [address] Glucose [Mass/Vol] 101 mg/dL Normal 70-105 [facility] Comment on above: Order Comment: Waive d Testing in the ED is performed under the ED CLIA certificate #[id number]. Result Comment: [email or web address] Performed By: #### L [id number] ####[facility] ([employer])[address] [place] [address] Glucose [Mass/Vol] 91 mg/dL Normal 70-105 [facility] Comment on above: Order Comment: Waive d Testing in the ED is performed under the ED CLIA certificate #[id number]. Result Comment: [email or web address] Performed By: #### L [id number] ####[facility] (BEAKER)[address] [place] [address] Glucose [Mass/Vol] 114 mg/dL High 70-105 [facility] Comment on above: Order Comment: Waive d Testing in the ED is performed under the ED CLIA certificate #[id number]. Result Comment: [email or web address] Performed By: #### L [id number] ####[facility] (BEAKER)[address] [place] [address] Glucose [Mass/Vol] 123 mg/dL High 70-105 [facility] Comment on above: Order Comment: Waive d Testing in the ED is performed under the ED CLIA certificate #[id number]. Result Comment: [email or web address] Performed By: #### L [id number] ####[facility] ([facility])[address] [place] [address] Glucose [Mass/Vol] 142 mg/dL High 70-105 [facility] Comment on above: Order Comment: Waive d Testing in the ED is performed under the ED CLIA certificate #[id number]. Result Comment: [email or web address] Performed By: #### L [id number] ####[facility] ([facility])[address] [place] [address] Glucose [Mass/Vol] 152 mg/dL High 70-105 [facility] Comment on above: Order Comment: Waive d Testing in the ED is performed under the ED CLIA certificate #[id number]. Result Comment: ahoo [email or web address] Performed By: #### L [id number] ####[facility] ([facility])[address] [place] [address] Glucose [Mass/Vol] 167 mg/dL High 70-105 [facility] Comment on above: Order Comment: Waive d Testing in the ED is performed under the ED CLIA certificate #[id number]. Result Comment: [email or web address] Performed By: #### L [id number] ####[facility] ([facility] [place] [address] POTASSIUM, WHOLE BLOODon Potassium [Moles/Vol] 4.3 mmol/L Normal 3.5-5.1 [facility] Comment on above: Performed By: #### P OTASSIUM, WHOLE BLOOD ####[facility] [id number] [place] [address] [place] Potassium [Moles/Vol] 4.1 mmol/L Normal 3.5-5.1 [facility] Comment on above: Performed By: #### P OTASSIUM, WHOLE BLOOD ####[facility] [id number] [place] [address] [facility] Potassium [Moles/Vol] 4.3 mmol/L Normal 3.5-5.1 [facility] Comment on above: Performed By: #### P OTASSIUM, WHOLE BLOOD ####[facility] [id number] [place] [address] [facility] PROTIME-INRon 04-23-2023 INR IN PPP BY COAGULATION ASSAY 1.98 High 0.90-1.10 [facility] Comment on above: Result Comment: ACCC P [...] CHEST 1995;[id number]. Performed By: #### L [id number] ####[facility] (BEAKER)[address] [place] [address] PROTHROMBIN TIME (PT) IN PPP BY COAGULATION ASSAY 22.6 Seconds High 12.3-14.8 [facility] Comment on above: Performed By: #### L [id number] ####[facility] (BEAKER)[address] [place] [address] INR IN PPP BY COAGULATION ASSAY 1.47 High 0.90-1.10 [facility] Comment on above: Result Comment: ACCC P [...] CHEST 1995;[id number]. Performed By: #### L [id number] ####[facility] (BEAKER)[address] [place] [address] PROTHROMBIN TIME (PT) IN PPP BY COAGULATION ASSAY 17.9 Seconds High 12.3-14.8 [facility] Comment on above: Performed By: #### L [id number] ####[facility] (BEAKER)[address] [place] [address] SODIUM, WHOLE BLOODon 2022 SODIUM, WHOLE BLOOD 141 Normal 136-145 [facility] Comment on above: Performed By: #### S ODIUM, WHOLE BLOOD ####[facility] [id number] [place] [address] [facility] SODIUM, WHOLE BLOOD 143 Normal 136-145 [facility] Comment on above: Performed By: #### S ODIUM, WHOLE BLOOD ####[facility] [id number] [place] [address] [place] SODIUM, WHOLE BLOOD 144 Normal 136-145 [facility] Comment on above: Performed By: #### S ODIUM, WHOLE BLOOD ####[facility] [id number] [place] [address] [place] TROPONIN Ion 04-23-2023 Troponin I.cardiac [Mass/Vol] 22.65 ng/mL Critically high 0.00-0.04 [facility] Comment on above: Result Comment: M-TR OPONIN INITIAL CRITICAL HIGH; RESPUN AND RETESTED Performed By: #### L [id number] ####[facility] ([employer])[address] [place] [address] ANESon 04-22-2023 ANES Normal [facility] APTTon 04-22-2023 ACTIVATED PARTIAL THROMBOPLASTIN TIME IN PPP BY COAGULATION ASSAY 43.4 Seconds High 25.0-35.0 [facility] Comment on above: Result Comment: Clin ical significance of the APTT is questionable in the presence of heparin. Performed By: #### L [id number] ####[facility] ([employer])[address] [place] [address] ACTIVATED PARTIAL THROMBOPLASTIN TIME IN PPP BY COAGULATION ASSAY 36.9 Seconds High 25.0-35.0 [facility] Comment on above: Result Comment: Clin ical significance of the APTT is questionable in the presence of heparin. Performed By: #### L [id number] ####[facility] ([employer])[address] [place] [address] ACTIVATED PARTIAL THROMBOPLASTIN TIME IN PPP BY COAGULATION ASSAY 40.3 Seconds High 25.0-35.0 [facility] Comment on above: Order Comment: Pre-o p diagnosis:NSTEMI (non-ST elevated myocardial infarction) (CMS/HCC) [I21.4]Acute non-ST segment elevation myocardial infarction (CMS/HCC) [I21.4]Coronary artery disease, unspecified vessel or lesion type, unspecified whether angina present, unspecified whether [place] or 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] Result Comment: Clin ical significance of the APTT is questionable in the presence of heparin. Performed By: #### L [id number] ####[facility] ([employer])[address] [place] [address] BASIC METABOLIC PANELon 11-0 Anion gap [Moles/Vol] 9 mmol/L Normal 7-20 [facility] Comment on above: Performed By: #### L [id number] ####[facility] (BEAKER)[address] [place] [address] Calcium [Mass/Vol] 7.9 mg/dL Low 8.6-10.3 [facility] Comment on above: Performed By: #### L [id number] ####[facility] ([facility])[address] [facility] [address] Chloride [Moles/Vol] 114 mmol/L High 98-107 [facility] Comment on above: Performed By: #### L [id number] ####[facility] ([facility])[address] [place] [address] CO2 [Moles/Vol] 25 mmol/L Normal 21-31 [facility] Comment on above: Performed By: #### L [id number] ####[facility] ([facility])[address] [facility] [address] Creatinine [Mass/Vol] 0.86 mg/dL Normal 0.70-1.30 [facility] Comment on above: Performed By: #### L [id number] ####[facility] ([facility])[address] [place] [address] GLOMERULAR FILTRATION RATE ML/MIN/1.73 SQ M.PREDICTED 93.7 mL/min/1.73m*2 Normal >60.0 [facility] Comment on above: Result Comment: The [facility]???s estimated glomerular filtration rate (eGFR) will no [...] of individuals. Performed By: #### L [id number] ####[facility] ([facility] [place] [address] Glucose [Mass/Vol] 162 mg/dL High 70-100 [facility] Comment on above: Performed By: #### L [id number] ####[facility] ([facility])[address] [place] [address] Potassium [Moles/Vol] 4.2 mmol/L Normal 3.5-5.1 [facility] Comment on above: Performed By: #### L [id number] ####[facility] ([facility])[address] [place] [address] Sodium [Moles/Vol] 144 mmol/L Normal 136-145 [facility] Comment on above: Performed By: #### L [id number] ####[facility] ([facility])[address] [place] [address] Urea nitrogen [Mass/Vol] 19 mg/dL Normal 7-25 [facility] Comment on above: Performed By: #### L [id number] ####[facility] ([facility])[address] [place] [address] UREA NITROGEN/CREATININ E (MASS RATIO) IN SER/PLAS 22.1 Normal [facility] Comment on above: Performed By: #### L [id number] ####[facility] ([facility])[address] [place] [address] Anion gap [Moles/Vol] 7 mmol/L Normal 7-20 [facility] Comment on above: Performed By: #### L [id number] ####[facility] ([facility])[address] [place] [address] Calcium [Mass/Vol] 8.2 mg/dL Low 8.6-10.3 [facility] Comment on above: Performed By: #### L [id number] ####[facility] [place] [address] Chloride [Moles/Vol] 114 mmol/L High 98-107 [facility] Comment on above: Performed By: #### L [id number] ####[facility] [place] [address] CO2 [Moles/Vol] 29 mmol/L Normal 21-31 [facility] Comment on above: Performed By: #### L [id number] ####[facility] ([facility] [place] [address] Creatinine [Mass/Vol] 0.77 mg/dL Normal 0.70-1.30 [facility] Comment on above: Performed By: #### L [id number] ####[facility] ([facility])[address] [place] [address] GLOMERULAR FILTRATION RATE ML/MIN/1.73 SQ M.PREDICTED 96.9 mL/min/1.73m*2 Normal >60.0 [facility] Comment on above: Result Comment: The [facility]???s estimated glomerular filtration rate (eGFR) will no [...] of individuals. Performed By: #### L [id number] ####[facility] ([facility] [place] [address] Glucose [Mass/Vol] 142 mg/dL High 70-100 [facility] Comment on above: Performed By: #### L [id number] ####[facility] [place] [address] Potassium [Moles/Vol] 3.7 mmol/L Normal 3.5-5.1 [facility] Comment on above: Performed By: #### L [id number] ####[facility] ([facility] [place] [address] Sodium [Moles/Vol] 146 mmol/L High 136-145 [facility] Comment on above: Performed By: #### L [id number] ####[facility] (BEAKER)[address] [place] [address] Urea nitrogen [Mass/Vol] 18 mg/dL Normal 7-25 [facility] Comment on above: Performed By: #### L [id number] ####[facility] (BEAKER)[address] [place] [address] UREA NITROGEN/CREATININ E (MASS RATIO) IN SER/PLAS 23.4 Normal [facility] Comment on above: Performed By: #### L [id number] ####[facility] (BEAKER)[address] [place] [address] Anion gap [Moles/Vol] 7 mmol/L Normal 7-20 [facility] Comment on above: Order Comment: Pre-o p diagnosis:NSTEMI (non-ST elevated myocardial infarction) (CMS/HCC) [I21.4]Acute non-ST segment elevation myocardial infarction (CMS/HCC) [I21.4]Coronary artery disease, unspecified vessel or lesion type, unspecified whether angina present, unspecified whether [place] or 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] Performed By: #### L [id number] ####[facility] (BEAKER)[address] [place] [address] Calcium [Mass/Vol] 8.5 mg/dL Low 8.6-10.3 [facility] Comment on above: Order Comment: Pre-o p diagnosis:NSTEMI (non-ST elevated myocardial infarction) (CMS/HCC) [I21.4]Acute non-ST segment elevation myocardial infarction (CMS/HCC) [I21.4]Coronary artery disease, unspecified vessel or lesion type, unspecified whether angina present, unspecified whether [place] or 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] Performed By: #### L [id number] ####[facility] (BEAKER)[address] [place] [address] Chloride [Moles/Vol] 116 mmol/L High 98-107 [facility] Comment on above: Order Comment: Pre-o p diagnosis:NSTEMI (non-ST elevated myocardial infarction) (CMS/HCC) [I21.4]Acute non-ST segment elevation myocardial infarction (CMS/HCC) [I21.4]Coronary artery disease, unspecified vessel or lesion type, unspecified whether angina present, unspecified whether [place] or 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] Performed By: #### L [id number] ####[facility] (BEAKER)[address] [place] [address] CO2 [Moles/Vol] 25 mmol/L Normal 21-31 [facility] Comment on above: Order Comment: Pre-o p diagnosis:NSTEMI (non-ST elevated myocardial infarction) (CMS/HCC) [I21.4]Acute non-ST segment elevation myocardial infarction (CMS/HCC) [I21.4]Coronary artery disease, unspecified vessel or lesion type, unspecified whether angina present, unspecified whether [place] or 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] Performed By: #### L [id number] ####[facility] (BEAKER)[address] [place] [address] Creatinine [Mass/Vol] 0.82 mg/dL Normal 0.70-1.30 [facility] Comment on above: Order Comment: Pre-o p diagnosis:NSTEMI (non-ST elevated myocardial infarction) (CMS/HCC) [I21.4]Acute non-ST segment elevation myocardial infarction (CMS/HCC) [I21.4]Coronary artery disease, unspecified vessel or lesion type, unspecified whether angina present, unspecified whether [place] or 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] Performed By: #### L [id number] ####[facility] (BEAKER)[address] [place] [address] GLOMERULAR FILTRATION RATE ML/MIN/1.73 SQ M.PREDICTED 95.1 mL/min/1.73m*2 Normal >60.0 [facility] Comment on above: Order Comment: Pre-o p diagnosis:NSTEMI (non-ST elevated myocardial infarction) (CMS/HCC) [I21.4]Acute non-ST segment elevation myocardial infarction (CMS/HCC) [I21.4]Coronary artery disease, unspecified vessel or lesion type, unspecified whether angina present, unspecified whether [place] or 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] Result Comment: The [facility]???s estimated glomerular filtration rate (eGFR) will no [...] of individuals. Performed By: #### L [id number] ####[facility] (BEAKER)[address] [place] [address] Glucose [Mass/Vol] 198 mg/dL High 70-100 [facility] Comment on above: Order Comment: Pre-o p diagnosis:NSTEMI (non-ST elevated myocardial infarction) (CMS/HCC) [I21.4]Acute non-ST segment elevation myocardial infarction (CMS/HCC) [I21.4]Coronary artery disease, unspecified vessel or lesion type, unspecified whether angina present, unspecified whether [place] or 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] Performed By: #### L [id number] ####[facility] (BEAKER)[address] [place] [address] Potassium [Moles/Vol] 3.1 mmol/L Low 3.5-5.1 [facility] Comment on above: Order Comment: Pre-o p diagnosis:NSTEMI (non-ST elevated myocardial infarction) (CMS/HCC) [I21.4]Acute non-ST segment elevation myocardial infarction (CMS/HCC) [I21.4]Coronary artery disease, unspecified vessel or lesion type, unspecified whether angina present, unspecified whether [place] or 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] Performed By: #### L [id number] ####[facility] (BEAKER)[address] [place] [address] Sodium [Moles/Vol] 145 mmol/L Normal 136-145 [facility] Comment on above: Order Comment: Pre-o p diagnosis:NSTEMI (non-ST elevated myocardial infarction) (CMS/HCC) [I21.4]Acute non-ST segment elevation myocardial infarction (CMS/HCC) [I21.4]Coronary artery disease, unspecified vessel or lesion type, unspecified whether angina present, unspecified whether [place] or 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] Performed By: #### L [id number] ####[facility] (BEAKER)[address] [place] [address] Urea nitrogen [Mass/Vol] 18 mg/dL Normal 7-25 [facility] Comment on above: Order Comment: Pre-o p diagnosis:NSTEMI (non-ST elevated myocardial infarction) (CMS/HCC) [I21.4]Acute non-ST segment elevation myocardial infarction (CMS/HCC) [I21.4]Coronary artery disease, unspecified vessel or lesion type, unspecified whether angina present, unspecified whether [place] or 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] Performed By: #### L [id number] ####[facility] ([employer])[address] [place] [address] UREA NITROGEN/CREATININ E (MASS RATIO) IN SER/PLAS 22.0 Normal [facility] Comment on above: Order Comment: Pre-o p diagnosis:NSTEMI (non-ST elevated myocardial infarction) (CMS/HCC) [I21.4]Acute non-ST segment elevation myocardial infarction (CMS/HCC) [I21.4]Coronary artery disease, unspecified vessel or lesion type, unspecified whether angina present, unspecified whether [place] or 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] Performed By: #### L [id number] ####[facility] ([employer])[address] [place] [address] CBCon 04-22-2023 Erythrocyte distribution width (RBC) [Ratio] 13.1 % Normal 11.5-15.0 [facility] Comment on above: Performed By: #### L [id number] ####[facility] ([employer])[address] [place] [address] ERYTHROCYTE MEAN CORPUSCULAR HEMOGLOBIN CONCENTRATION (G/DL) BY AUTOMATED 34.7 g/dL Normal 32.0-35.0 [facility] Comment on above: Performed By: #### L [id number] ####[facility] (BEAKER)[address] [place] [address] Hematocrit (Bld) [Volume fraction] 32.6 % Low 39.0-55.0 [facility] Comment on above: Performed By: #### L [id number] ####[facility] (BEAKER)[address] [address] Hemoglobin (Bld) [Mass/Vol] 11.3 g/dL Low 13.0-17.0 [facility] Comment on above: Performed By: #### L [id number] ####[facility] (BEAKER)[address], [place] [address] MCH (RBC) [Entitic mass] 31.1 pg Normal 27.0-33.0 [facility] Comment on above: Performed By: #### L [id number] ####[facility] ([facility] [place] [address] MCV (RBC) [Entitic vol] 89.8 fL Normal 82.0-98.0 [facility] Comment on above: Performed By: #### L [id number] ####[facility] ([facility] [place] [address] PLATELETS (10*3/UL) IN BLOOD AUTOMATED COUNT 107 10*3/uL Low 150-400 [facility] Comment on above: Performed By: #### L [id number] ####[facility] (BEAKER)[address] [place] [address] RBC (Bld) [#/Vol] 3.63 10*6/uL Low 4.20-5.70 [facility] Comment on above: Performed By: #### L [id number] ####[facility] (BEAKER)[address] [place] [address] WBC (Bld) [#/Vol] 18.54 10*3/uL High 4.00-10.60 [facility] Comment on above: Performed By: #### L [id number] ####[facility] (BEAKER)[address] [place] [address] Erythrocyte distribution width (RBC) [Ratio] 13.0 % Normal 11.5-15.0 [facility] Comment on above: Order Comment: Pre-o p diagnosis:NSTEMI (non-ST elevated myocardial infarction) (CMS/HCC) [I21.4]Acute non-ST segment elevation myocardial infarction (CMS/HCC) [I21.4]Coronary artery disease, unspecified vessel or lesion type, unspecified whether angina present, unspecified whether [place] or 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] Performed By: #### L [id number] ####[facility] ([employer])[address] [place] [address] ERYTHROCYTE MEAN CORPUSCULAR HEMOGLOBIN CONCENTRATION (G/DL) BY AUTOMATED 34.5 g/dL Normal 32.0-35.0 [facility] Comment on above: Order Comment: Pre-o p diagnosis:NSTEMI (non-ST elevated myocardial infarction) (CMS/HCC) [I21.4]Acute non-ST segment elevation myocardial infarction (CMS/HCC) [I21.4]Coronary artery disease, unspecified vessel or lesion type, unspecified whether angina present, unspecified whether [place] tribe or 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] Performed By: #### L [id number] ####[facility] ([employer])[address] [place] [address] Hematocrit (Bld) [Volume fraction] 26.7 % Low 39.0-55.0 [facility] Comment on above: Order Comment: Pre-o p diagnosis:NSTEMI (non-ST elevated myocardial infarction) (CMS/HCC) [I21.4]Acute non-ST segment elevation myocardial infarction (CMS/HCC) [I21.4]Coronary artery disease, unspecified vessel or lesion type, unspecified whether angina present, unspecified whether [place] or 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] Performed By: #### L [id number] ####[facility] ([employer])[address] [facility] [address] Hemoglobin (Bld) [Mass/Vol] 9.2 g/dL Low 13.0-17.0 [facility] Comment on above: Order Comment: Pre-o p diagnosis:NSTEMI (non-ST elevated myocardial infarction) (CMS/HCC) [I21.4]Acute non-ST segment elevation myocardial infarction (CMS/HCC) [I21.4]Coronary artery disease, unspecified vessel or lesion type, unspecified whether angina present, unspecified whether [place] or 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] Performed By: #### L [id number] ####[facility] ([employer])[address] [place] [address] MCH (RBC) [Entitic mass] 31.4 pg Normal 27.0-33.0 [facility] Comment on above: Order Comment: Pre-o p diagnosis:NSTEMI (non-ST elevated myocardial infarction) (CMS/HCC) [I21.4]Acute non-ST segment elevation myocardial infarction (CMS/HCC) [I21.4]Coronary artery disease, unspecified vessel or lesion type, unspecified whether angina present, unspecified whether [place] or 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] Performed By: #### L [id number] ####[facility] ([employer])[address] [place] [address] MCV (RBC) [Entitic vol] 91.1 fL Normal 82.0-98.0 [facility] Comment on above: Order Comment: Pre-o p diagnosis:NSTEMI (non-ST elevated myocardial infarction) (CMS/HCC) [I21.4]Acute non-ST segment elevation myocardial infarction (CMS/HCC) [I21.4]Coronary artery disease, unspecified vessel or lesion type, unspecified whether angina present, unspecified whether [place] or 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] Performed By: #### L [id number] ####[facility] ([employer])[address] [place] [address] PLATELETS (10*3/UL) IN BLOOD AUTOMATED COUNT 134 10*3/uL Low 150-400 [facility] Comment on above: Order Comment: Pre-o p diagnosis:NSTEMI (non-ST elevated myocardial infarction) (CMS/HCC) [I21.4]Acute non-ST segment elevation myocardial infarction (CMS/HCC) [I21.4]Coronary artery disease, unspecified vessel or lesion type, unspecified whether angina present, unspecified whether [place] or 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] Performed By: #### L [id number] ####[facility] ([facility] [place] [address] RBC (Bld) [#/Vol] 2.93 10*6/uL Low 4.20-5.70 [facility] Comment on above: Order Comment: Pre-o p diagnosis:NSTEMI (non-ST elevated myocardial infarction) (CMS/HCC) [I21.4]Acute non-ST segment elevation myocardial infarction (CMS/HCC) [I21.4]Coronary artery disease, unspecified vessel or lesion type, unspecified whether angina present, unspecified whether [place] or 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] Performed By: #### L [id number] ####[facility] ([facility])[address] [place] [address] WBC (Bld) [#/Vol] 21.16 10*3/uL High 4.00-10.60 [facility] Comment on above: Order Comment: Pre-o p diagnosis:NSTEMI (non-ST elevated myocardial infarction) (CMS/HCC) [I21.4]Acute non-ST segment elevation myocardial infarction (CMS/HCC) [I21.4]Coronary artery disease, unspecified vessel or lesion type, unspecified whether angina present, unspecified whether [place] or 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] Performed By: #### L [id number] ####[facility] ([employer])[address] [place] [address] CBC WITH AUTO DIFFERENTIALon 04-22-2023 Basophils (Bld) [#/Vol] 0.01 10*3/uL Normal 0.00-0.20 [facility] Comment on above: Performed By: #### L [id number] ####[facility] ([employer])[address] [place] [address] Basophils/100 WBC (Bld) 0.1 % Normal 0.0-1.0 [facility] Comment on above: Performed By: #### L [id number] ####[facility] (BEAKER)[address] [place] [address] Eosinophils (Bld) [#/Vol] 0.00 10*3/uL Normal 0.00-0.50 [facility] Comment on above: Performed By: #### L [id number] ####[facility] (BEAKER)[address] [place] [address] Eosinophils/100 WBC (Bld) 0.0 % Normal 0.0-6.0 [facility] Comment on above: Performed By: #### L [id number] ####[facility] ([facility])[address] [place] [address] Erythrocyte distribution width (RBC) [Ratio] 13.2 % Normal 11.5-15.0 [facility] Comment on above: Performed By: #### L [id number] ####[facility] ([facility])[address] [place] [address] ERYTHROCYTE MEAN CORPUSCULAR HEMOGLOBIN CONCENTRATION (G/DL) BY AUTOMATED 35.6 g/dL High 32.0-35.0 [facility] Comment on above: Performed By: #### L [id number] ####[facility] ([facility])[address] [place] [address] Hematocrit (Bld) [Volume fraction] 28.4 % Low 39.0-55.0 [facility] Comment on above: Performed By: #### L [id number] ####[facility] (BEAKER)[address] [place] [address] Hemoglobin (Bld) [Mass/Vol] 10.1 g/dL Low 13.0-17.0 [facility] Comment on above: Performed By: #### L [id number] ####[facility] (BEAKER)[address] [place] [address] Immature granulocytes (Bld) [#/Vol] 0.10 10*3/uL Normal 0.00-0.20 [facility] Comment on above: Performed By: #### L [id number] ####[facility] (BEAKER)[address] [place] [address] Immature granulocytes/100 WBC (Bld) 0.7 % Normal 0.0-1.0 [facility] Comment on above: Performed By: #### L [id number] ####[facility] (BEAKER)[address] [place] [address] IMMATURE PLATELET FRACTION % 2.3 % Normal 0.8-6.3 [facility] Comment on above: Performed By: #### L [id number] ####[facility] ([facility] [place] [address] Lymphocytes (Bld) [#/Vol] 0.95 10*3/uL Low 1.20-4.00 [facility] Comment on above: Performed By: #### L [id number] ####[facility] (BEAKER)[address] [place] [address] Lymphocytes/100 WBC (Bld) 6.4 % Low 20.0-45.0 [facility] Comment on above: Performed By: #### L [id number] ####[facility] (BEAKER)[address] [place] [address] MCH (RBC) [Entitic mass] 31.7 pg Normal 27.0-33.0 [facility] Comment on above: Performed By: #### L [id number] ####[facility] (BEAKER)[address] [place] [address] MCV (RBC) [Entitic vol] 89.0 fL Normal 82.0-98.0 [facility] Comment on above: Performed By: #### L [id number] ####[facility] (BEAKER)[address] [place] [address] Monocytes (Bld) [#/Vol] 1.37 10*3/uL High 0.10-1.00 [facility] Comment on above: Performed By: #### L [id number] ####[facility] (BEAKER)[address] [place] [address] Monocytes/100 WBC (Bld) 9.3 % Normal 5.0-12.0 [facility] Comment on above: Performed By: #### L [id number] ####[facility] ([facility])[address] [address] Neutrophils (Bld) [#/Vol] 12.36 10*3/uL High 1.60-7.60 [facility] Comment on above: Performed By: #### L [id number] ####[facility] ([facility])[address] [address] Neutrophils/100 WBC (Bld) 83.5 % High 40.0-72.0 [facility] Comment on above: Performed By: #### L [id number] ####[facility] ([facility])[address] [address] NRBC (PER 100 WBCS) BY AUTOMATED COUNT 0.0 % Normal 0 [facility] Comment on above: Performed By: #### L [id number] ####[facility] ([facility])[address] [address] PLATELETS (10*3/UL) IN BLOOD AUTOMATED COUNT 108 10*3/uL Low 150-400 [facility] Comment on above: Performed By: #### L [id number] ####[facility] ([facility])[address], [place] [address] RBC (Bld) [#/Vol] 3.19 10*6/uL Low 4.20-5.70 [facility] Comment on above: Performed By: #### L [id number] ####[facility] ([facility])[address] [address] WBC (Bld) [#/Vol] 14.79 10*3/uL High 4.00-10.60 [facility] Comment on above: Performed By: #### L [id number] ####[facility] ([facility])[address] [address] CO-OXIMETRYon 04-22-2023 CARBOXYHEMOGLOBIN/ HEMOGLOBIN TOTAL % IN BLOOD 1.5 % Normal [facility] Comment on above: Performed By: #### L [id number] ####[facility] [id number] [place] [address] [place] Hemoglobin (Bld) [Mass/Vol] 12.7 g/dL Normal [facility] Comment on above: Performed By: #### L [id number] ####[facility] [id number] [place] [address] [place] METHEMOGLOBIN/100 IN BLOOD 0.1 % Normal 0.0-1.5 [facility] Comment on above: Performed By: #### L [id number] ####[facility] [id number] [address] [place] Oxygen saturation in Blood 71.7 % Normal [facility] Comment on above: Performed By: #### L [id number] ####[facility] [id number] [place] [address] [place] OXYGENATED HEMOGLOBIN IN BLOOD 70.6 % Normal [facility] Comment on above: Performed By: #### L [id number] ####[facility] [id number] [address] [place] CONSULTon 04-22-2023 CONSULT Normal [facility] FIBRINOGENon 04-22-2023 Magnesium [Mass/Vol] 162 mg/dL Normal 150-425 [facility] Comment on above: Order Comment: Pre-o p diagnosis:NSTEMI (non-ST elevated myocardial infarction) (CMS/HCC) [I21.4]Acute non-ST segment elevation myocardial infarction (CMS/HCC) [I21.4]Coronary artery disease, unspecified vessel or lesion type, unspecified whether angina present, unspecified whether [place] tribe or 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] Performed By: #### L [id number] ####[facility] (BEAKER)[address] [place] [address] HEPATIC FUNCTION PANELon Albumin [Mass/Vol] 2.5 g/dL Low 3.5-5.7 [facility] Comment on above: Performed By: #### L [id number] ####[facility] (BEAKER)[address] [place] [address] ALP [Catalytic activity/Vol] 54 U/L Normal 34-104 [facility] Comment on above: Performed By: #### L [id number] ####[facility] ([facility])[address] [place] [address] ALT [Catalytic activity/Vol] 10 U/L Normal 7-52 [facility] Comment on above: Performed By: #### L [id number] ####[facility] ([facility])[address] [place] [address] AST [Catalytic activity/Vol] 34 U/L Normal 13-39 [facility] Comment on above: Performed By: #### L [id number] ####[facility] ([facility])[address] [place] [address] Bilirubin [Mass/Vol] 0.6 mg/dL Normal 0.3-1.0 [facility] Comment on above: Performed By: #### L [id number] ####[facility] ([facility])[address] [place] [address] Magnesium [Mass/Vol] 0.2 mg/dL Normal 0-0.2 [facility] Comment on above: Performed By: #### L [id number] ####[facility] ([facility])[address] [place] [address] Protein [Mass/Vol] 3.7 g/dL Low 6.0-8.3 [facility] Comment on above: Performed By: #### L [id number] ####[facility] ([facility])[address] [place] [address] HISTOLOGY - TISSUE EXAMon LAB AP CASE REPORT Normal [facility] Comment on above: Order Comment: Pre-o p diagnosis:NSTEMI (non-ST elevated myocardial infarction) (CMS/HCC) [I21.4]Acute non-ST segment elevation myocardial infarction (CMS/HCC) [I21.4]Coronary artery disease, unspecified vessel or lesion type, unspecified whether angina present, unspecified whether [place] tribe or 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] Result Comment: Surg ical Pathology Case: [id number] Provider: Chaitanya Ames MD Collected: 04/22/2023 0928Ordering Location: [facility] Main Operating Room Received: 04/22/2023 1923Pathologist: RAHEEM Wilsonpecimens: A) - Lymph Node, ANTERIOR MEDIASTINAL LYMPH NODE B) - Lymph Node, RIGHT INTERNAL MAMMARY LYMPH NODE FOR HISTOLOGY Performed By: #### L [id number] ####[facility] ([facility] [place] [address] LAB AP CLINICAL INFORMATION Normal [facility] Comment on above: Order Comment: Pre-o p diagnosis:NSTEMI (non-ST elevated myocardial infarction) (CMS/HCC) [I21.4]Acute non-ST segment elevation myocardial infarction (CMS/HCC) [I21.4]Coronary artery disease, unspecified vessel or lesion type, unspecified whether angina present, unspecified whether [place] tribe or 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] Result Comment: Post -Op [id number] - NSTEMI (non-ST elevated myocardial infarction) (CMS/HCC) [ICD-10-CM]I21.4 - Acute non-ST segment elevation myocardial infarction (CMS/HCC) [ICD-10-CM]I25.10 - Coronary artery disease, unspecified vessel or lesion type, unspecified whether angina present, unspecified whether [place] tribe or transplanted heart [ICD-10-CM] Performed By: #### L [id number] ####[facility] ([facility])[address] [place] [address] LAB AP GROSS DESCRIPTION A. Lymph Node. Normal [facility] Comment on above: Order Comment: Pre-o p diagnosis:NSTEMI (non-ST elevated myocardial infarction) (CMS/HCC) [I21.4]Acute non-ST segment elevation myocardial infarction (CMS/HCC) [I21.4]Coronary artery disease, unspecified vessel or lesion type, unspecified whether angina present, unspecified whether [place] tribe or 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] Result Comment: Rece [...] submitted in a single cassette.Jenny Guajardo, Pathologists' Excellence Manager Performed By: #### L [id number] ####[facility] ([facility])[address] [place] [address] LAB AP MICROSCOPIC DESCRIPTION Microscopic examination performed. [facility] Comment on above: Order Comment: Pre-o p diagnosis:NSTEMI (non-ST elevated myocardial infarction) (CMS/HCC) [I21.4]Acute non-ST segment elevation myocardial infarction (CMS/HCC) [I21.4]Coronary artery disease, unspecified vessel or lesion type, unspecified whether angina present, unspecified whether [place] tribe or 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] Performed By: #### L [id number] ####[facility] ([facility])[address] [place] [address] LAB AP REPORT FINAL DIAGNOSIS NARRATIVE [facility] Comment on above: Order Comment: Pre-o p diagnosis:NSTEMI (non-ST elevated myocardial infarction) (CMS/HCC) [I21.4]Acute non-ST segment elevation myocardial infarction (CMS/HCC) [I21.4]Coronary artery disease, unspecified vessel or lesion type, unspecified whether angina present, unspecified whether [place] or 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] Result Comment: A. L ymph node, anterior mediastinal, regional resection: - Two benign lymph nodes with sinus histiocytosis and anthracosis (0/2).B. Lymph node, right internal mammary, regional resection: - One benign lymph node with sinus histiocytosis and anthracosis (0/1). - Minute fragment of skeletal muscle and fibroadipose tissue with focal chronic inflammation. Performed By: #### L [id number] ####[facility] ([facility] [place] [address] HPon 04-22-2023 HP H&P reviewed. The laurie putnam was examined and there are no changes to the H&P. Normal [facility] LACTIC ACID WITH 4 HOUR REFL EXon 04-22-2023 LACTATE (MMOL/L) IN SER/PLAS 2.3 mmol/L High 0.5-2.2 [facility] Comment on above: Order Comment: Pre-o p diagnosis:NSTEMI (non-ST elevated myocardial infarction) (CMS/HCC) [I21.4]Acute non-ST segment elevation myocardial infarction (CMS/HCC) [I21.4]Coronary artery disease, unspecified vessel or lesion type, unspecified whether angina present, unspecified whether [place] tribe or 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] Performed By: #### L [id number] ####[facility] ([facility])[address] [place] [address] LACTIC ACID, PLASMAon 2022 LACTATE (MMOL/L) IN SER/PLAS 2.6 mmol/L Critically high 0.5-2.2 [facility] Comment on above: Result Comment: Prev ious result verified on 04/22/2023 1906 on specimen/case [id number] called with component Lactate for procedure Lactic acid, plasma with value 2.7 mmol/L. Performed By: #### L [id number] ####[facility] ([facility])[address] [place] [address] LACTATE (MMOL/L) IN SER/PLAS 2.7 mmol/L Critically high 0.5-2.2 [facility] Comment on above: Performed By: #### L [id number] ####[facility] ([facility])[address] [place] [address] MAGNESIUMon 04-22-2023 Magnesium [Mass/Vol] 2.1 mg/dL Normal 1.9-2.7 [facility] Comment on above: Performed By: #### L [id number] ####[facility] ([facility])[address] [place] [address] Magnesium [Mass/Vol] 2.4 mg/dL Normal 1.9-2.7 [facility] Comment on above: Order Comment: Pre-o p diagnosis:NSTEMI (non-ST elevated myocardial infarction) (CMS/HCC) [I21.4]Acute non-ST segment elevation myocardial infarction (CMS/HCC) [I21.4]Coronary artery disease, unspecified vessel or lesion type, unspecified whether angina present, unspecified whether [place] or 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] Performed By: #### L [id number] ####[facility] ([facility] [place] [address] OPNOTEon 04-22-2023 OPNOTE Normal [facility] PHOSPHORUSon 04-22-2023 Magnesium [Mass/Vol] 3.6 mg/dL Normal 2.5-5.0 [facility] Comment on above: Performed By: #### L [id number] ####[facility] ([facility])[address] [place] [address] POCT ACTIVATED CLOTTING TIME UNSOLICITED RESULTSon 04-22-2023 POC ACTIVATED CLOTTING TIME 132 sec Normal 82-152 [facility] Comment on above: Performed By: #### L [id number] ####[facility] ([facility])[address] [place] [address] POC ACTIVATED CLOTTING TIME 341 sec High 82-152 [facility] Comment on above: Performed By: #### L [id number] ####[facility] ([facility])[address] [place] [address] POC ACTIVATED CLOTTING TIME 473 sec High 82-152 [facility] Comment on above: Performed By: #### L [id number] ####[facility] ([facility])[address] [place] [address] POC ACTIVATED CLOTTING TIME 516 sec High 82-152 [facility] Comment on above: Performed By: #### L [id number] ####[facility] ([facility])[address] [place] [address] POC ACTIVATED CLOTTING TIME 460 sec High 82-152 [facility] Comment on above: Performed By: #### L [id number] ####[facility] ([facility])[address] [place] [address] POC ACTIVATED CLOTTING TIME 446 sec High 82-152 [facility] Comment on above: Performed By: #### L [id number] ####[facility] ([facility])[address] [place] [address] POC ACTIVATED CLOTTING TIME 479 sec High 82-152 [facility] Comment on above: Performed By: #### L [id number] ####[facility] ([facility]ER)[address] [place] [address] POC ACTIVATED CLOTTING TIME 447 sec High 82-152 [facility] Comment on above: Performed By: #### L [id number] ####[facility] (BE[facility]ER)[address] [place] [address] POC ACTIVATED CLOTTING TIME 596 sec High 82-152 [facility] Comment on above: Performed By: #### L [id number] ####[facility] ([facility])[address] [place] [address] POC ACTIVATED CLOTTING TIME 602 sec High 82-152 [facility] Comment on above: Performed By: #### L [id number] ####[facility] ([facility])[address] [place] [address] POC ACTIVATED CLOTTING TIME 143 sec Normal 82-152 [facility] Comment on above: Performed By: #### L [id number] ####[facility] ([facility])[address] [place] [address] POCT GLUCOSE METER UNSOLICIT ED RESULTSon 04-22-2023 Glucose [Mass/Vol] 156 mg/dL High 70-105 [facility] Comment on above: Order Comment: Waive d Testing in the ED is performed under the ED CLIA certificate #[id number]. Result Comment: [email or web address] Performed By: #### L [id number] ####[facility] (BE[facility]ER)[address] [place] [address] Glucose [Mass/Vol] 121 mg/dL High 70-105 [facility] Comment on above: Order Comment: Waive d Testing in the ED is performed under the ED CLIA certificate #[id number]. Result Comment: [email or web address] [email or web address] Performed By: #### L [id number] ####[facility] ([facility])[address] [place] [address] Glucose [Mass/Vol] 122 mg/dL High 70-105 [facility] Comment on above: Order Comment: Waive d Testing in the ED is performed under the ED CLIA certificate #[id number]. Result Comment: [email or web address] man Performed By: #### L [id number] ####[facility] ([facility])[address] [place] [address] Glucose [Mass/Vol] 137 mg/dL High 70-105 [facility] Comment on above: Order Comment: Waive d Testing in the ED is performed under the ED CLIA certificate #[id number]. Result Comment: [email or web address] Performed By: #### L [id number] ####[facility] ([facility])[address] [place] [address] Glucose [Mass/Vol] 107 mg/dL High 70-105 [facility] Comment on above: Order Comment: Waive d Testing in the ED is performed under the ED CLIA certificate #[id number]. Result Comment: [email or web address] [email or web address] Performed By: #### L [id number] ####[facility] ([facility])[address] [place] [address] POCT PERFUSION PANEL UNSOLIC ITED RESULTSon 04-22-2023 CO2 [Moles/Vol] 25.0 mmol/L Normal 21.0-29.0 [facility] Comment on above: Performed By: #### L [id number] ####[facility] ([facility])[address] [place] [address] Glucose [Mass/Vol] 195 mg/dL High 70-105 [facility] Comment on above: Performed By: #### L [id number] ####[facility] (BEAKER)[address] [address] HCO3 (Bld) [Moles/Vol] 23.6 mmol/L Normal 23.0-28.0 [facility] Comment on above: Performed By: #### L [id number] ####[facility] ([facility])[address] [address] Hematocrit (Bld) [Volume fraction] 27 % Low 38-51 [facility] Comment on above: Performed By: #### L [id number] ####[facility] ([facility] [address] Hemoglobin (Bld) [Mass/Vol] 9.2 g/dL Low 12.0-17.0 [facility] Comment on above: Performed By: #### L [id number] ####[facility] ([facility])[address] [address] POCT BASE EXCESS -3.0 mmol/L Low -2.0-3.0 [facility] Comment on above: Performed By: #### L [id number] ####[facility] ([facility])[address] [address] POCT IONIZED CALCIUM 1.35 mmol/L High 1.12-1.32 [facility] Comment on above: Performed By: #### L [id number] ####[facility] (BE[facility]ER)[address] [address] POCT PCO2 47.6 mmHg Normal 41.0-51.0 [facility] Comment on above: Performed By: #### L [id number] ####[facility] (BE[facility]ER)[address] [address] POCT PH 7.30 Low 7.31-7.41 [facility] Comment on above: Performed By: #### L [id number] ####[facility] (BE[facility]ER)[address] [address] POCT PO2 355 mmHg High 80-105 [facility] Comment on above: Performed By: #### L [id number] ####[facility] (BEAKER)[address] [place] [address] POCT SO2 100 % High 95-98 [facility] Comment on above: Performed By: #### L [id number] ####[facility] (BEAKER)[address] [place] [address] Potassium [Moles/Vol] 3.2 mmol/L Low 3.5-4.9 [facility] Comment on above: Performed By: #### L [id number] ####[facility] ([facility])[address] [place] [address] Sodium [Moles/Vol] 146 mmol/L Normal 138.0-146.0 [facility] Comment on above: Performed By: #### L [id number] ####[facility] (BE[facility]ER)[address] [place] [address] CO2 [Moles/Vol] 26.0 mmol/L Normal 21.0-29.0 [facility] Comment on above: Performed By: #### L [id number] ####[facility] ([facility])[address] [place] [address] Glucose [Mass/Vol] 196 mg/dL High 70-105 [facility] Comment on above: Performed By: #### L [id number] ####[facility] (BEAKER)[address] [place] [address] HCO3 (Bld) [Moles/Vol] 24.2 mmol/L Normal 23.0-28.0 [facility] Comment on above: Performed By: #### L [id number] ####[facility] (BE[facility]ER)[address] [place] [address] Hematocrit (Bld) [Volume fraction] 21 % Low 38-51 [facility] Comment on above: Performed By: #### L [id number] ####[facility] (BEAKER)[address] [place] [address] Hemoglobin (Bld) [Mass/Vol] 7.1 g/dL Low 12.0-17.0 [facility] Comment on above: Performed By: #### L [id number] ####[facility] (BEAKER)[address] [place] [address] POCT BASE EXCESS -3.0 mmol/L Low -2.0-3.0 [facility] Comment on above: Performed By: #### L [id number] ####[facility] (BEAKER)[address] [place] [address] POCT IONIZED CALCIUM 1.19 mmol/L Normal 1.12-1.32 [facility] Comment on above: Performed By: #### L [id number] ####[facility] ([facility])[address] [place] [address] POCT PCO2 52.4 mmHg High 41.0-51.0 [facility] Comment on above: Performed By: #### L [id number] ####[facility] (BEAKER)[address] [place] [address] POCT PH 7.27 Low 7.31-7.41 [facility] Comment on above: Performed By: #### L [id number] ####[facility] (BEAKER)[address] [place] [address] POCT PO2 488 mmHg High 80-105 [facility] Comment on above: Performed By: #### L [id number] ####[facility] (BEAKER)[address] [place] [address] POCT SO2 100 % High 95-98 [facility] Comment on above: Performed By: #### L [id number] ####[facility] (BEAKER)[address] [place] [address] Potassium [Moles/Vol] 3.7 mmol/L Normal 3.5-4.9 [facility] Comment on above: Performed By: #### L [id number] ####[facility] (BEAKER)[address] [place] [address] Sodium [Moles/Vol] 145 mmol/L Normal 138.0-146.0 [facility] Comment on above: Performed By: #### L [id number] ####[facility] (BEAKER)[address] [place] [address] CO2 [Moles/Vol] 24.0 mmol/L Normal 21.0-29.0 [facility] Comment on above: Performed By: #### L [id number] ####[facility] (BEAKER)[address] [place] [address] Glucose [Mass/Vol] 177 mg/dL High 70-105 [facility] Comment on above: Performed By: #### L [id number] ####[facility] (BEAKER)[address] [place] [address] HCO3 (Bld) [Moles/Vol] 22.2 mmol/L Low 23.0-28.0 [facility] Comment on above: Performed By: #### L [id number] ####[facility] (BEAKER)[address] [place] [address] Hematocrit (Bld) [Volume fraction] 21 % Low 38-51 [facility] Comment on above: Performed By: #### L [id number] ####[facility] (BEAKER)[address] [place] [address] Hemoglobin (Bld) [Mass/Vol] 7.1 g/dL Low 12.0-17.0 [facility] Comment on above: Performed By: #### L [id number] ####[facility] (BEAKER)[address] [place] [address] POCT BASE EXCESS -4.0 mmol/L Low -2.0-3.0 [facility] Comment on above: Performed By: #### L [id number] ####[facility] (BEAKER)[address] [place] [address] POCT IONIZED CALCIUM 1.32 mmol/L Normal 1.12-1.32 [facility] Comment on above: Performed By: #### L [id number] ####[facility] (BEAKER)[address] [place] [address] POCT PCO2 44.7 mmHg Normal 41.0-51.0 [facility] Comment on above: Performed By: #### L [id number] ####[facility] (BEAKER)[address] [place] [address] POCT PH 7.30 Low 7.31-7.41 [facility] Comment on above: Performed By: #### L [id number] ####[facility] (BEAKER)[address] [place] [address] POCT PO2 449 mmHg High 80-105 [facility] Comment on above: Performed By: #### L [id number] ####[facility] (BEAKER)[address] [place] [address] POCT SO2 100 % High 95-98 [facility] Comment on above: Performed By: #### L [id number] ####[facility] (BEAKER)[address] [place] [address] Potassium [Moles/Vol] 4.4 mmol/L Normal 3.5-4.9 [facility] Comment on above: Performed By: #### L [id number] ####[facility] (BEAKER)[address] [place] [address] Sodium [Moles/Vol] 141 mmol/L Normal 138.0-146.0 [facility] Comment on above: Performed By: #### L [id number] ####[facility] (BEAKER)[address] [place] [address] CO2 [Moles/Vol] 25.0 mmol/L Normal 21.0-29.0 [facility] Comment on above: Performed By: #### L [id number] ####[facility] (BEAKER)[address] [place] [address] Glucose [Mass/Vol] 171 mg/dL High 70-105 [facility] Comment on above: Performed By: #### L [id number] ####[facility] (BEAKER)[address] [address] HCO3 (Bld) [Moles/Vol] 24.0 mmol/L Normal 23.0-28.0 [facility] Comment on above: Performed By: #### L [id number] ####[facility] (BE[facility]ER)[address] [address] Hematocrit (Bld) [Volume fraction] 26 % Low 38-51 [facility] Comment on above: Performed By: #### L [id number] ####[facility] (BEAKER)[address] [address] Hemoglobin (Bld) [Mass/Vol] 8.8 g/dL Low 12.0-17.0 [facility] Comment on above: Performed By: #### L [id number] ####[facility] [address] POCT BASE EXCESS -1.0 mmol/L Normal -2.0-3.0 [facility] Comment on above: Performed By: #### L [id number] ####[facility] (BE[facility]ER)[address] [address] POCT IONIZED CALCIUM 1.06 mmol/L Low 1.12-1.32 [facility] Comment on above: Performed By: #### L [id number] ####[facility] (BEAKER)[address] [address] POCT PCO2 38.1 mmHg Low 41.0-51.0 [facility] Comment on above: Performed By: #### L [id number] ####[facility] (BEAKER)[address] [address] POCT PH 7.41 Normal 7.31-7.41 [facility] Comment on above: Performed By: #### L [id number] ####[facility] (BEAKER)[address] [address] POCT PO2 534 mmHg High 80-105 [facility] Comment on above: Performed By: #### L [id number] ####[facility] (BEAKER)[address] [place] [address] POCT SO2 100 % High 95-98 [facility] Comment on above: Performed By: #### L [id number] ####[facility] (BEAKER)[address] [place] [address] Potassium [Moles/Vol] 4.1 mmol/L Normal 3.5-4.9 [facility] [facility] Comment on above: Performed By: #### L [id number] ####[facility] (BEAKER)[address] [place] [address] Sodium [Moles/Vol] 141 mmol/L Normal 138.0-146.0 [facility] Comment on above: Performed By: #### L [id number] ####[facility] (BEAKER)[address] [place] [address] CO2 [Moles/Vol] 27.0 mmol/L Normal 21.0-29.0 [facility] Comment on above: Performed By: #### L [id number] ####[facility] (BEAKER)[address] [place] [address] Glucose [Mass/Vol] 187 mg/dL High 70-105 [facility] Comment on above: Performed By: #### L [id number] ####[facility] (BEAKER)[address] [place] [address] HCO3 (Bld) [Moles/Vol] 25.8 mmol/L Normal 23.0-28.0 [facility] Comment on above: Performed By: #### L [id number] ####[facility] (BEAKER)[address] [place] [address] Hematocrit (Bld) [Volume fraction] 26 % Low 38-51 [facility] Comment on above: Performed By: #### L [id number] ####[facility] (BEAKER)[address] [place] [address] Hemoglobin (Bld) [Mass/Vol] 8.8 g/dL Low 12.0-17.0 [facility] Comment on above: Performed By: #### L [id number] ####[facility] ([facility] [address] POCT BASE EXCESS 1.0 mmol/L Normal -2.0-3.0 [facility] Comment on above: Performed By: #### L [id number] ####[facility] ([facility] [address] POCT IONIZED CALCIUM 1.06 mmol/L Low 1.12-1.32 [facility] Comment on above: Performed By: #### L [id number] ####[facility] ([facility])[address] [address] POCT PCO2 40.4 mmHg Low 41.0-51.0 [facility] Comment on above: Performed By: #### L [id number] ####[facility] ([facility])[address] [address] POCT PH 7.41 Normal 7.31-7.41 [facility] Comment on above: Performed By: #### L [id number] ####[facility] ([facility])[address] [address] POCT PO2 506 mmHg High 80-105 [facility] Comment on above: Performed By: #### L [id number] ####[facility] ([facility])[address], [place] [address] POCT SO2 100 % High 95-98 [facility] Comment on above: Performed By: #### L [id number] ####[facility] ([facility])[address], [place] [address] Potassium [Moles/Vol] 4.2 mmol/L Normal 3.5-4.9 [facility] Comment on above: Performed By: #### L [id number] ####[facility] ([facility] [place] [address] Sodium [Moles/Vol] 141 mmol/L Normal 138.0-146.0 [facility] Comment on above: Performed By: #### L [id number] ####[facility] (BEAKER)[address] [place] [address] CO2 [Moles/Vol] 23.0 mmol/L Normal 21.0-29.0 [facility] Comment on above: Performed By: #### L [id number] ####[facility] (BEAKER)[address] [place] [address] Glucose [Mass/Vol] 211 mg/dL High 70-105 [facility] Comment on above: Performed By: #### L [id number] ####[facility] (BEAKER)[address] [place] [address] HCO3 (Bld) [Moles/Vol] 22.1 mmol/L Low 23.0-28.0 [facility] Comment on above: Performed By: #### L [id number] ####[facility] (BEAKER)[address] [place] [address] Hematocrit (Bld) [Volume fraction] 28 % Low 38-51 [facility] Comment on above: Performed By: #### L [id number] ####[facility] (BEAKER)[address] [place] [address] Hemoglobin (Bld) [Mass/Vol] 9.5 g/dL Low 12.0-17.0 [facility] Comment on above: Performed By: #### L [id number] ####[facility] (BEAKER)[address] [place] [address] POCT BASE EXCESS -3.0 mmol/L Low -2.0-3.0 [facility] Comment on above: Performed By: #### L [id number] ####[facility] (BEAKER)[address] [place] [address] POCT IONIZED CALCIUM 1.08 mmol/L Low 1.12-1.32 [facility] Comment on above: Performed By: #### L [id number] ####[facility] (BEAKER)[address] [place] [address] POCT PCO2 38.1 mmHg Low 41.0-51.0 [facility] Comment on above: Performed By: #### L [id number] ####[facility] (BEAKER)[address] [place] [address] POCT PH 7.37 Normal 7.31-7.41 [facility] Comment on above: Performed By: #### L [id number] ####[facility] (BEAKER)[address] [place] [address] POCT PO2 418 mmHg High 80-105 [facility] Comment on above: Performed By: #### L [id number] ####[facility] (BEAKER)[address] [place] [address] POCT SO2 100 % High 95-98 [facility] Comment on above: Performed By: #### L [id number] ####[facility] (BEAKER)[address] [place] [address] Potassium [Moles/Vol] 4.7 mmol/L Normal 3.5-4.9 [facility] Comment on above: Performed By: #### L [id number] ####[facility] (BEAKER)[address] [place] [address] Sodium [Moles/Vol] 137 mmol/L Low 138.0-146.0 [facility] Comment on above: Performed By: #### L [id number] ####[facility] (BEAKER)[address] [place] [address] CO2 [Moles/Vol] 24.0 mmol/L Normal 21.0-29.0 [facility] Comment on above: Performed By: #### L [id number] ####[facility] (BEAKER)[address] [place] [address] Glucose [Mass/Vol] 203 mg/dL High 70-105 [facility] Comment on above: Performed By: #### L [id number] ####[facility] (BEAKER)[address] [address] HCO3 (Bld) [Moles/Vol] 22.6 mmol/L Low 23.0-28.0 [facility] Comment on above: Performed By: #### L [id number] ####[facility] (BEAKER)[address] [address] Hematocrit (Bld) [Volume fraction] 26 % Low 38-51 [facility] Comment on above: Performed By: #### L [id number] ####[facility] (BEAKER)[address] [address] Hemoglobin (Bld) [Mass/Vol] 8.8 g/dL Low 12.0-17.0 [facility] Comment on above: Performed By: #### L [id number] ####[facility] (BEAKER)[address] [address] POCT BASE EXCESS -2.0 mmol/L Normal -2.0-3.0 [facility] Comment on above: Performed By: #### L [id number] ####[facility] (BEAKER)[address] [address] POCT IONIZED CALCIUM 1.06 mmol/L Low 1.12-1.32 [facility] Comment on above: Performed By: #### L [id number] ####[facility] (BEAKER)[address] [address] POCT PCO2 38.7 mmHg Low 41.0-51.0 [facility] Comment on above: Performed By: #### L [id number] ####[facility] (BEAKER)[address] [address] POCT PH 7.38 Normal 7.31-7.41 [facility] Comment on above: Performed By: #### L [id number] ####[facility] (BEAKER)[address] [address] POCT PO2 377 mmHg High 80-105 [facility] Comment on above: Performed By: #### L [id number] ####[facility] (BEAKER)[address] [place] [address] POCT SO2 100 % High 95-98 [facility] Comment on above: Performed By: #### L [id number] ####[facility] (BEAKER)[address] [place] [address] Potassium [Moles/Vol] 5.0 mmol/L High 3.5-4.9 [facility] Comment on above: Performed By: #### L [id number] ####[facility] (BEAKER)[address] [place] [address] Sodium [Moles/Vol] 137 mmol/L Low 138.0-146.0 [facility] Comment on above: Performed By: #### L [id number] ####[facility] (BEAKER)[address] [place] [address] CO2 [Moles/Vol] 24.0 mmol/L Normal 21.0-29.0 [facility] Comment on above: Performed By: #### L [id number] ####[facility] (BEAKER)[address] [place] [address] Glucose [Mass/Vol] 193 mg/dL High 70-105 [facility] Comment on above: Performed By: #### L [id number] ####[facility] (BEAKER)[address] [place] [address] HCO3 (Bld) [Moles/Vol] 23.3 mmol/L Normal 23.0-28.0 [facility] Comment on above: Performed By: #### L [id number] ####[facility] (BEAKER)[address] [place] [address] Hematocrit (Bld) [Volume fraction] 28 % Low 38-51 [facility] Comment on above: Performed By: #### L [id number] ####[facility] (BEAKER)[address] [place] [address] Hemoglobin (Bld) [Mass/Vol] 9.5 g/dL Low 12.0-17.0 [facility] Comment on above: Performed By: #### L [id number] ####[facility] (BEAKER)[address] [address] POCT BASE EXCESS -2.0 mmol/L Normal -2.0-3.0 [facility] Comment on above: Performed By: #### L [id number] ####[facility] (BEAKER)[address] [address] POCT IONIZED CALCIUM 1.07 mmol/L Low 1.12-1.32 [facility] Comment on above: Performed By: #### L [id number] ####[facility] ([facility] [address] POCT PCO2 38.7 mmHg Low 41.0-51.0 [facility] Comment on above: Performed By: #### L [id number] ####[facility] ([facility], [place] [address] POCT PH 7.39 Normal 7.31-7.41 [facility] Comment on above: Performed By: #### L [id number] ####[facility] (BEAKER)[address] [place] [address] POCT PO2 367 mmHg High 80-105 [facility] Comment on above: Performed By: #### L [id number] ####[facility] [place] [address] POCT SO2 100 % High 95-98 [facility] Comment on above: Performed By: #### L [id number] ####[facility] (BEAKER)[address] [place] [address] Potassium [Moles/Vol] 5.6 mmol/L High 3.5-4.9 [facility] Comment on above: Performed By: #### L [id number] ####[facility] (BEAKER)[address] [place] [address] Sodium [Moles/Vol] 138 mmol/L Normal 138.0-146.0 [facility] Comment on above: Performed By: #### L [id number] ####[facility] (BEAKER)[address] [place] [address] CO2 [Moles/Vol] 25.0 mmol/L Normal 21.0-29.0 [facility] Comment on above: Performed By: #### L [id number] ####[facility] (BEAKER)[address] [place] [address] Glucose [Mass/Vol] 165 mg/dL High 70-105 [facility] Comment on above: Performed By: #### L [id number] ####[facility] (BEAKER)[address] [place] [address] HCO3 (Bld) [Moles/Vol] 23.5 mmol/L Normal 23.0-28.0 [facility] Comment on above: Performed By: #### L [id number] ####[facility] (BEAKER)[address] [place] [address] Hematocrit (Bld) [Volume fraction] 27 % Low 38-51 [facility] Comment on above: Performed By: #### L [id number] ####[facility] (BEAKER)[address] [place] [address] Hemoglobin (Bld) [Mass/Vol] 9.2 g/dL Low 12.0-17.0 [facility] Comment on above: Performed By: #### L [id number] ####[facility] (BEAKER)[address] [place] [address] POCT BASE EXCESS -1.0 mmol/L Normal -2.0-3.0 [facility] Comment on above: Performed By: #### L [id number] ####[facility] (BEAKER)[address] [place] [address] POCT IONIZED CALCIUM 1.08 mmol/L Low 1.12-1.32 [facility] Comment on above: Performed By: #### L [id number] ####[facility] (BEAKER)[address] [place] [address] POCT PCO2 38.4 mmHg Low 41.0-51.0 [facility] Comment on above: Performed By: #### L [id number] ####[facility] (BEAKER)[address] [place] [address] POCT PH 7.39 Normal 7.31-7.41 [facility] Comment on above: Performed By: #### L [id number] ####[facility] (BEAKER)[address] [place] [address] POCT PO2 387 mmHg High 80-105 [facility] Comment on above: Performed By: #### L [id number] ####[facility] (BEAKER)[address] [place] [address] POCT SO2 100 % High 95-98 [facility] Comment on above: Performed By: #### L [id number] ####[facility] (BEAKER)[address] [place] [address] Potassium [Moles/Vol] 5.9 mmol/L High 3.5-4.9 [facility] Comment on above: Performed By: #### L [id number] ####[facility] (BEAKER)[address] [place] [address] Sodium [Moles/Vol] 138 mmol/L Normal 138.0-146.0 [facility] Comment on above: Performed By: #### L [id number] ####[facility] (BEAKER)[address] [place] [address] CO2 [Moles/Vol] 26.0 mmol/L Normal 21.0-29.0 [facility] Comment on above: Performed By: #### L [id number] ####[facility] (BEAKER)[address] [place] [address] Glucose [Mass/Vol] 142 mg/dL High 70-105 [facility] Comment on above: Performed By: #### L [id number] ####[facility] (BEAKER)[address] [address] HCO3 (Bld) [Moles/Vol] 24.5 mmol/L Normal 23.0-28.0 [facility] Comment on above: Performed By: #### L [id number] ####[facility] (BEAKER)[address] [address] Hematocrit (Bld) [Volume fraction] 24 % Low 38-51 [facility] Comment on above: Performed By: #### L [id number] ####[facility] (BEAKER)[address] [address] Hemoglobin (Bld) [Mass/Vol] 8.2 g/dL Low 12.0-17.0 [facility] Comment on above: Performed By: #### L [id number] ####[facility] (BEAKER)[address] [address] POCT BASE EXCESS -1.0 mmol/L Normal -2.0-3.0 [facility] Comment on above: Performed By: #### L [id number] ####[facility] (BEAKER)[address] [address] POCT IONIZED CALCIUM 0.99 mmol/L Low 1.12-1.32 [facility] Comment on above: Performed By: #### L [id number] ####[facility] (BEAKER)[address] [place] [address] POCT PCO2 44.6 mmHg Normal 41.0-51.0 [facility] Comment on above: Performed By: #### L [id number] ####[facility] (BEAKER)[address], [place] [address] POCT PH 7.35 Normal 7.31-7.41 [facility] Comment on above: Performed By: #### L [id number] ####[facility] (BEAKER)[address] [place] [address] POCT PO2 462 mmHg High 80-105 [facility] Comment on above: Performed By: #### L [id number] ####[facility] (BEAKER)[address] [place] [address] POCT SO2 100 % High 95-98 [facility] Comment on above: Performed By: #### L [id number] ####[facility] (BEAKER)[address] [place] [address] Potassium [Moles/Vol] 6.2 mmol/L Critically high 3.5-4.9 [facility] Comment on above: Performed By: #### L [id number] ####[facility] (BEAKER)[address] [place] [address] Sodium [Moles/Vol] 136 mmol/L Low 138.0-146.0 [facility] Comment on above: Performed By: #### L [id number] ####[facility] (BEAKER)[address] [place] [address] CO2 [Moles/Vol] 24.0 mmol/L Normal 21.0-29.0 [facility] Comment on above: Performed By: #### L [id number] ####[facility] (BEAKER)[address] [place] [address] Glucose [Mass/Vol] 151 mg/dL High 70-105 [facility] Comment on above: Performed By: #### L [id number] ####[facility] (BEAKER)[address] [place] [address] HCO3 (Bld) [Moles/Vol] 22.6 mmol/L Low 23.0-28.0 [facility] Comment on above: Performed By: #### L [id number] ####[facility] (BEAKER)[address] [place] [address] Hematocrit (Bld) [Volume fraction] 38 % Normal 38-51 [facility] Comment on above: Performed By: #### L [id number] ####[facility] (BEAKER)[address] [place] [address] Hemoglobin (Bld) [Mass/Vol] 12.9 g/dL Normal 12.0-17.0 [facility] Comment on above: Performed By: #### L [id number] ####[facility] (BEAKER)[address] [address] POCT BASE EXCESS -4.0 mmol/L Low -2.0-3.0 [facility] Comment on above: Performed By: #### L [id number] ####[facility] (BEAKER)[address] [address] POCT IONIZED CALCIUM 1.25 mmol/L Normal 1.12-1.32 [facility] Comment on above: Performed By: #### L [id number] ####[facility] (BEAKER)[address] [address] POCT PCO2 47.5 mmHg Normal 41.0-51.0 [facility] Comment on above: Performed By: #### L [id number] ####[facility] (BEAKER)[address] [address] POCT PH 7.29 Low 7.31-7.41 [facility] Comment on above: Performed By: #### L [id number] ####[facility] (BEAKER)[address] [address] POCT PO2 336 mmHg High 80-105 [facility] Comment on above: Performed By: #### L [id number] ####[facility] (BEAKER)[address] [address] POCT SO2 100 % High 95-98 [facility] Comment on above: Performed By: #### L [id number] ####[facility] (BEAKER)[address], [place] [address] Potassium [Moles/Vol] 4.4 mmol/L Normal 3.5-4.9 [facility] Comment on above: Performed By: #### L [id number] ####[facility] (BEAKER)[address] [address] Sodium [Moles/Vol] 139 mmol/L Normal 138.0-146.0 [facility] Comment on above: Performed By: #### L [id number] ####[facility] (BEAKER)[address] [place] [address] CO2 [Moles/Vol] 23.0 mmol/L Normal 21.0-29.0 [facility] Comment on above: Performed By: #### L [id number] ####[facility] (BEAKER)[address] [place] [address] Glucose [Mass/Vol] 123 mg/dL High 70-105 [facility] Comment on above: Performed By: #### L [id number] ####[facility] (BEAKER)[address] [place] [address] HCO3 (Bld) [Moles/Vol] 22.1 mmol/L Low 23.0-28.0 [facility] Comment on above: Performed By: #### L [id number] ####[facility] (BEAKER)[address] [place] [address] Hematocrit (Bld) [Volume fraction] 38 % Normal 38-51 [facility] Comment on above: Performed By: #### L [id number] ####[facility] (BEAKER)[address] [place] [address] Hemoglobin (Bld) [Mass/Vol] 12.9 g/dL Normal 12.0-17.0 [facility] Comment on above: Performed By: #### L [id number] ####[facility] (BEAKER)[address] [place] [address] POCT BASE EXCESS -3.0 mmol/L Low -2.0-3.0 [facility] Comment on above: Performed By: #### L [id number] ####[facility] (BEAKER)[address] [place] [address] POCT IONIZED CALCIUM 1.25 mmol/L Normal 1.12-1.32 [facility] Comment on above: Performed By: #### L [id number] ####[facility] [place] [address] POCT PCO2 39.3 mmHg Low 41.0-51.0 [facility] [facility] Comment on above: Performed By: #### L [id number] ####[facility] ([facility] [place] [address] POCT PH 7.36 Normal 7.31-7.41 [facility] Comment on above: Performed By: #### L [id number] ####[facility] ([facility])[address] [place] [address] POCT PO2 412 mmHg High 80-105 [facility] Comment on above: Performed By: #### L [id number] ####[facility] ([facility])[address] [place] [address] POCT SO2 100 % High 95-98 [facility] Comment on above: Performed By: #### L [id number] ####[facility] ([facility])[address] [place] [address] Potassium [Moles/Vol] 3.8 mmol/L Normal 3.5-4.9 [facility] Comment on above: Performed By: #### L [id number] ####[facility] ([facility])[address] [place] [address] Sodium [Moles/Vol] 140 mmol/L Normal 138.0-146.0 [facility] Comment on above: Performed By: #### L [id number] ####[facility] ([facility])[address] [place] [address] PROTIME-INRon 04-22-2023 INR IN PPP BY COAGULATION ASSAY 1.60 High 0.90-1.10 [facility] Comment on above: Result Comment: [facility] P RECOMMENDED INR FOR WARFARIN THERAPY CONDITION INRPROPHYLAXIS OF VENOUS THROMBOSIS 2-3(HIGH-RISK SURGERY)TREATMENT OF VENOUS THROMBOSIS 2-3TREATMENT OF PULMONARY EMBOLISM 2-3PREVENTION OF SYSTEMIC EMBOLISM: 2-3 ACUTE MYOCARDIAL INFARCTION TISSUE HEART VALVES VALVULAR HEART DISEASE ATRIAL FIBRILLATION RECURRENT SYSTEMIC EMBOLISMMECHANICAL HEART VALVE 2.5-3.5 FROM: ORAL ANTICOAGULANTS. MECHANISM OF ACTION, CLINICAL EFFECTIVENESS, AND OPTIMAL THERAPEUTIC RANGE. CHEST 1995;108:231S-246S. Performed By: #### L [id number] ####[facility] ([facility])[address] [place] [address] PROTHROMBIN TIME (PT) IN PPP BY COAGULATION ASSAY 19.1 Seconds High 12.3-14.8 [facility] Comment on above: Performed By: #### L [id number] ####[facility] (BEAKER)[address] [facility] [address] INR IN PPP BY COAGULATION ASSAY 1.72 High 0.90-1.10 [facility] Comment on above: Result Comment: [facility] FOR WARFARIN THERAPY CONDITION INRPROPHYLAXIS OF VENOUS THROMBOSIS 2-3(HIGH-RISK SURGERY)TREATMENT OF VENOUS THROMBOSIS 2-3TREATMENT OF PULMONARY EMBOLISM 2-3PREVENTION OF SYSTEMIC EMBOLISM: 2-3 ACUTE MYOCARDIAL INFARCTION TISSUE HEART VALVES VALVULAR HEART DISEASE ATRIAL FIBRILLATION RECURRENT SYSTEMIC EMBOLISMMECHANICAL HEART VALVE 2.5-3.5 FROM: ORAL ANTICOAGULANTS. MECHANISM OF ACTION, CLINICAL EFFECTIVENESS, AND OPTIMAL THERAPEUTIC RANGE. CHEST 1995;108:231S-246S. Performed By: #### L [id number] ####[facility] ([employer])[address] [place] [address] PROTHROMBIN TIME (PT) IN PPP BY COAGULATION ASSAY 20.2 Seconds High 12.3-14.8 [facility] Comment on above: Performed By: #### L [id number] ####[facility] ([employer])[address] [place] [address] INR IN PPP BY COAGULATION ASSAY 2.00 High 0.90-1.10 [facility] Comment on above: Order Comment: Pre-o p diagnosis:NSTEMI (non-ST elevated myocardial infarction) (CMS/HCC) [I21.4]Acute non-ST segment elevation myocardial infarction (CMS/HCC) [I21.4]Coronary artery disease, unspecified vessel or lesion type, unspecified whether angina present, unspecified whether [place] tribe or 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] Result Comment: ACCC [...] CHEST 1995;108:231S-246S. Performed By: #### L [id number] ####[facility] (BEAKER)[address] [facility] [address] PROTHROMBIN TIME (PT) IN PPP BY COAGULATION ASSAY 22.8 Seconds High 12.3-14.8 [facility] Comment on above: Order Comment: Pre-o p diagnosis:NSTEMI (non-ST elevated myocardial infarction) (CMS/HCC) [I21.4]Acute non-ST segment elevation myocardial infarction (CMS/HCC) [I21.4]Coronary artery disease, unspecified vessel or lesion type, unspecified whether angina present, unspecified whether [place] tribe or 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] Performed By: #### L [id number] ####[facility] ([facility])[address] [facility] [address] 36on 04-21-2023 36 Called patient and l eft voicemail. Updated NPO after midnight and not to take any medications in the AM. Surgery scheduled for 0730am. Normal [facility] ANESon 04-21-2023 ANES [facility] Telephoneon 04-21-2023 Telephone [phone] Sarina Ortizan 1955 M Date Provider Department Agency 04/21/2023 [facility] Family History Family history unknown: Yes [facility] APTTon 04-09-2023 ACTIVATED PARTIAL THROMBOPLASTIN TIME IN PPP BY COAGULATION ASSAY 34.7 Seconds Normal 25.0-35.0 [facility] Comment on above: Result Comment: Clin ical significance of the APTT is questionable in the presence of heparin. Performed By: #### L [id number] ####[facility] ([facility] [facility] [address] BASIC METABOLIC PANELon 03-18 Anion gap [Moles/Vol] 11 mmol/L Normal 7-20 [facility] Comment on above: Performed By: #### L [id number] ####[facility] ([facility] [facility] [address] Calcium [Mass/Vol] 9.8 mg/dL Normal 8.6-10.3 [facility] Comment on above: Performed By: #### L [id number] ####[facility] (BEAKER)[address] [place] [address] Chloride [Moles/Vol] 105 mmol/L Normal 98-107 [facility] Comment on above: Performed By: #### L [id number] ####[facility] (BEAKER)[address] [place] [address] CO2 [Moles/Vol] 25 mmol/L Normal 21-31 [facility] Comment on above: Performed By: #### L [id number] ####[facility] (BEAKER)[address] [place] [address] Creatinine [Mass/Vol] 0.91 mg/dL Normal 0.70-1.30 [facility] Comment on above: Performed By: #### L [id number] ####[facility] ([facility] [place] [address] GLOMERULAR FILTRATION RATE ML/MIN/1.73 SQ M.PREDICTED 91.2 mL/min/1.73m*2 Normal >60.0 [facility] Comment on above: Result Comment: The [facility]???s estimated glomerular filtration rate (eGFR) will no [...] of individuals. Performed By: #### L [id number] ####[facility] (BEAKER)[address] [place] [address] Glucose [Mass/Vol] 105 mg/dL High 70-100 [facility] Comment on above: Performed By: #### L [id number] ####[facility] (BEAKER)[address] [place] [address] Potassium [Moles/Vol] 3.9 mmol/L Normal 3.5-5.1 [facility] Comment on above: Performed By: #### L [id number] ####[facility] ([facility])[address] [place] [address] Sodium [Moles/Vol] 137 mmol/L Normal 136-145 [facility] Comment on above: Performed By: #### L [id number] ####[facility] ([facility])[address] [place] [address] Urea nitrogen [Mass/Vol] 15 mg/dL Normal 7-25 [facility] Comment on above: Performed By: #### L [id number] ####[facility] ([facility])[address] [place] [address] UREA NITROGEN/CREATININ E (MASS RATIO) IN SER/PLAS 16.5 Normal [facility] Comment on above: Performed By: #### L [id number] ####[facility] ([facility])[address] [place] [address] CBC WITH AUTO DIFFERENTIALon 04-09-2023 Basophils (Bld) [#/Vol] 0.05 10*3/uL Normal 0.00-0.20 [facility] Comment on above: Performed By: #### L [id number] ####[facility] ([facility])[address] [place] [address] Basophils/100 WBC (Bld) 0.8 % Normal 0.0-1.0 [facility] Comment on above: Performed By: #### L [id number] ####[facility] ([facility])[address] [place] [address] Eosinophils (Bld) [#/Vol] 0.09 10*3/uL Normal 0.00-0.50 [facility] Comment on above: Performed By: #### L [id number] ####[facility] ([facility])[address] [place] [address] Eosinophils/100 WBC (Bld) 1.4 % Normal 0.0-6.0 [facility] Comment on above: Performed By: #### L [id number] ####[facility] (BEAKER)[address] [place] [address] Erythrocyte distribution width (RBC) [Ratio] 13.1 % Normal 11.5-15.0 [facility] Comment on above: Performed By: #### L [id number] ####[facility] (BEAKER)[address] [place] [address] ERYTHROCYTE MEAN CORPUSCULAR HEMOGLOBIN CONCENTRATION (G/DL) BY AUTOMATED 33.3 g/dL Normal 32.0-35.0 [facility] Comment on above: Performed By: #### L [id number] ####[facility] ([facility])[address] [place] [address] Hematocrit (Bld) [Volume fraction] 43.0 % Normal 39.0-55.0 [facility] Comment on above: Performed By: #### L [id number] ####[facility] ([facility] [place] [address] Hemoglobin (Bld) [Mass/Vol] 14.3 g/dL Normal 13.0-17.0 [facility] Comment on above: Performed By: #### L [id number] ####[facility] ([facility] [place] [address] Immature granulocytes (Bld) [#/Vol] 0.03 10*3/uL Normal 0.00-0.20 [facility] Comment on above: Performed By: #### L [id number] ####[facility] (BEAKER)[address] [place] [address] Immature granulocytes/100 WBC (Bld) 0.5 % Normal 0.0-1.0 [facility] Comment on above: Performed By: #### L [id number] ####[facility] (BEAKER)[address] [place] [address] Lymphocytes (Bld) [#/Vol] 2.46 10*3/uL Normal 1.20-4.00 [facility] Comment on above: Performed By: #### L [id number] ####[facility] (BEAKER)[address] [place] [address] Lymphocytes/100 WBC (Bld) 38.2 % Normal 20.0-45.0 [facility] Comment on above: Performed By: #### L [id number] ####[facility] (BEAKER)[address] [place] [address] MCH (RBC) [Entitic mass] 30.4 pg Normal 27.0-33.0 [facility] Comment on above: Performed By: #### L [id number] ####[facility] (BEAKER)[address] [place] [address] MCV (RBC) [Entitic vol] 91.3 fL Normal 82.0-98.0 [facility] Comment on above: Performed By: #### L [id number] ####[facility] ([facility] [place] [address] Monocytes (Bld) [#/Vol] 0.51 10*3/uL Normal 0.10-1.00 [facility] Comment on above: Performed By: #### L [id number] ####[facility] (BEAKER)[address] [place] [address] Monocytes/100 WBC (Bld) 7.9 % Normal 5.0-12.0 [facility] Comment on above: Performed By: #### L [id number] ####[facility] (BEAKER)[address] [place] [address] Neutrophils (Bld) [#/Vol] 3.30 10*3/uL Normal 1.60-7.60 [facility] Comment on above: Performed By: #### L [id number] ####[facility] (BEAKER)[address] [place] [address] Neutrophils/100 WBC (Bld) 51.2 % Normal 40.0-72.0 [facility] Comment on above: Performed By: #### L [id number] ####[facility] (BEAKER)[address] [place] [address] NRBC (PER 100 WBCS) BY AUTOMATED COUNT 0.0 % Normal 0 [facility] Comment on above: Performed By: #### L [id number] ####[facility] (BEAKER)[address] [address] PLATELETS (10*3/UL) IN BLOOD AUTOMATED COUNT 281 10*3/uL Normal 150-400 [facility] Comment on above: Performed By: #### L [id number] ####[facility] (BEAKER)[address] [address] RBC (Bld) [#/Vol] 4.71 10*6/uL Normal 4.20-5.70 [facility] Comment on above: Performed By: #### L [id number] ####[facility] (BEAKER)[address] [address] WBC (Bld) [#/Vol] 6.44 10*3/uL Normal 4.00-10.60 [facility] Comment on above: Performed By: #### L [id number] ####[facility] (BEAKER)[address] [place] [address] ETHANOLon 04-09-2023 ETHANOL (MG/DL) IN SER/PLAS <10 Normal [facility] Comment on above: Result Comment: No E thanol detected Performed By: #### L [id number] ####[facility] (BEAKER)[address] [place] [address] ETHANOL CALCULATED (%) Normal [facility] Comment on above: Performed By: #### L [id number] ####[facility] (BEAKER)[address] [place] [address] Follow-Upon 04-09-2023 Follow-Up Normal [facility] HEMOGLOBIN A1Con 04-09-2023 Glucose [Mass/Vol] 128 mg/dL Normal [facility] Comment on above: Performed By: #### L [id number] ####[facility] (BEAKER)[address] [place] [address] HbA1c (Bld) [Mass fraction] 6.1 % High 4.0-6.0 [facility] Comment on above: Performed By: #### L [id number] ####[facility] ([facility])[address] [place] [address] HPon 04-09-2023 HP Normal [facility] Labon 04-09-2023 Lab [id number] Gui Ortiz 1955 M Date Provider Department Agency 04/09/2023 2245-[facility] RESOURCE [facility] Family History Family history unknown: Yes Normal [facility] MRSA/MSSA DNA NASALon 2022 MRSA DNA Negative Normal Negative [facility] Comment on above: Order Comment: Testi ng [...] preclude nasal colonization. Performed By: #### L [id number] ####[facility] ([facility])[address] [place] [address] MSSA DNA Negative Normal Negative [facility] Comment on above: Order Comment: Testi ng [...] preclude nasal colonization. Performed By: #### L [id number] ####[facility] ([facility])[address] [place] [address] Orders Onlyon 04-09-2023 Orders Only [id number] Gui Ortiz 1955 M Date Provider Department Center 04/09/2023 728-ALE[facility] PAREDES [facility]END[facility] Family History Family history unknown: Yes Normal [facility] PROTIME-INRon 04-09-2023 INR IN PPP BY COAGULATION ASSAY 1.00 Normal 0.90-1.10 [facility] Comment on above: Result Comment: [facility]MENDED INR FOR WARFARIN THERAPY CONDITION INRPROPHYLAXIS OF VENOUS THROMBOSIS 2-3(HIGH-RISK SURGERY)TREATMENT OF VENOUS THROMBOSIS 2-3TREATMENT OF PULMONARY EMBOLISM 2-3PREVENTION OF SYSTEMIC EMBOLISM: 2-3 ACUTE MYOCARDIAL INFARCTION TISSUE HEART VALVES VALVULAR HEART DISEASE ATRIAL FIBRILLATION RECURRENT SYSTEMIC EMBOLISMMECHANICAL HEART VALVE 2.5-3.5 FROM: ORAL ANTICOAGULANTS. MECHANISM OF ACTION, CLINICAL EFFECTIVENESS, AND OPTIMAL THERAPEUTIC RANGE. CHEST 1995;108:231S-246S. Performed By: #### L [id number] ####[facility] ([employer])[address] [place] [address] PROTHROMBIN TIME (PT) IN PPP BY COAGULATION ASSAY 13.2 Seconds Normal 12.3-14.8 [facility] Comment on above: Performed By: #### L [id number] ####[facility] ([employer])[address] [place] [address] TOXICOLOGY PANEL URINEon AMPHETAMINE+METHAM PHETAMINE SCREEN (PRESENCE) IN URINE Negative Normal Negative [facility] Comment on above: Performed By: #### L [id number] ####[facility] ([employer])[address] [place] [address] BARBITURATES PRESENCE IN URINE BY SCREEN METHOD Negative Normal Negative [facility] Comment on above: Performed By: #### L [id number] ####[facility] (BEAKER)[address] [place] [address] Benzodiazepines Ql (U) Negative Normal Negative [facility] Comment on above: Performed By: #### L [id number] ####[facility] ([facility] [place] [address] CANNABINOID (PRESENCE) IN URINE BY SCREEN METHOD Negative Normal Negative [facility] Comment on above: Performed By: #### L [id number] ####[facility] ([facility])[address] [place] [address] Cocaine Ql (U) Negative Normal Negative [facility] Comment on above: Performed By: #### L [id number] ####[facility] ([facility])[address] [place] [address] METHADONE (PRESENCE) IN URINE BY SCREEN METHOD Normal [facility] Comment on above: Result Comment: Meth adone being sent out. Results to follow. Performed By: #### L [id number] ####[facility] ([facility])[address] [place] [address] OPIATES (PRESENCE) IN URINE BY SCREEN METHOD Negative Normal Negative [facility] Comment on above: Performed By: #### L [id number] ####[facility] ([facility])[address] [place] [address] PHENCYCLIDINE PRESENCE IN URINE BY SCREEN METHOD Negative Normal Negative [facility] Comment on above: Performed By: #### L [id number] ####[facility] ([facility])[address] [place] [address] Propoxyphene Screen Ql (U) Negative Normal Negative [facility] Comment on above: Performed By: #### L [id number] ####[facility] ([facility])[address] [place] [address] TRICYCLIC ANTIDEPRESSANTS (PRESENCE) IN URINE Negative Normal Negative [facility] Comment on above: Performed By: #### L [id number] ####[facility] ([facility])[address] [place] [address] TYPE AND SCREENon 04-09-2023 AB SCREEN Negative Normal [facility] Comment on above: Performed By: #### L [id number] ####[facility] BLOOD BANK, ABO group Nom (Bld) O Normal [facility] Comment on above: Performed By: #### L [id number] ####[facility] BLOOD B[facility], RH TYPE IN BLOOD Positive Normal [facility] Comment on above: Performed By: #### L [id number] ####[facility] BLOOD B[facility], URINALYSISon 04-09-2023 BILIRUBIN, TOTAL PRESENCE IN URINE Negative Normal Negative [facility] Comment on above: Performed By: #### L [id number] ####[facility] (BEAKER)[address] [place] [address] Clarity (U) Clear Normal Clear [facility] Comment on above: Performed By: #### L [id number] ####[facility] (BEAKER)[address] [place] [address] Color (U) Yellow Normal Yellow [facility] Comment on above: Performed By: #### L [id number] ####[facility] (BEAKER)[address] [place] [address] Glucose (U) [Mass/Vol] Negative Normal Negative [facility] Comment on above: Performed By: #### L [id number] ####[facility] (BEAKER)[address] [place] [address] HEMOGLOBIN PRESENCE IN URINE Small Abnormal Negative [facility] Comment on above: Performed By: #### L [id number] ####[facility] (BEAKER)[address] [place] [address] Ketones Ql (U) Negative Normal Negative [facility] Comment on above: Performed By: #### L [id number] ####[facility] (BEAKER)[address] [place] [address] LEUKOCYTE ESTERASE PRESENCE IN URINE BY TEST STRIP Negative Normal Negative [facility] [facility] Comment on above: Performed By: #### L [id number] ####[facility] ([facility]ER)[address] [place] [address] NITRITE PRESENCE IN URINE Negative Normal Negative [facility] Comment on above: Performed By: #### L [id number] ####[facility] ([facility] [place] [address] pH (U) 6.0 [pH] Normal 5.0-8.0 [facility] Comment on above: Performed By: #### L [id number] ####[facility] ([facility])[address] [place] [address] Protein (U) [Mass/Vol] Negative Normal Negative [facility] Comment on above: Performed By: #### L [id number] ####[facility] ([facility])[address] [place] [address] Specific gravity (U) [Rel density] 1.012 Low 1.015-1.020 [facility] Comment on above: Performed By: #### L [id number] ####[facility] ([facility])[address] [place] [address] URINALYSIS MICROSCOPICon CASTS IN URINE Normal [facility] Comment on above: Performed By: #### L [id number] ####[facility] ([facility])[address] [place] [address] CRYSTALS IN URINE Normal [facility] Comment on above: Performed By: #### L [id number] ####[facility] ([facility])[address] [place] [address] RBC (#/HPF) IN URINE SEDIMENT 3-5 Abnormal None Seen [facility] Comment on above: Performed By: #### L [id number] ####[facility] ([facility] [place] [address] SQUAMOUS EPITHELIAL CELLS (#/HPF) IN URINE SEDIMENT None Seen Normal None Seen, Occasional [facility] Comment on above: Performed By: #### L [id number] ####[facility] ([facility] [place] [address] WBC (LEUKOCYTE) (#/HPF) IN URINE SEDIMENT None Seen Normal None Seen [facility] Comment on above: Performed By: #### L [id number] ####[facility] ([facility])[address] [place] [address] Documentationon 04-01-2023 Documentation Normal [facility] 30on 03-23-2023 30 Normal [facility] 30 Normal [facility] 30 Normal [facility] ANTI-XA (HEPARIN LEVEL)on HEPARIN UNFRACTIONATED (U/ML) IN PPP BY CHROMOGENIC METHOD <0.10 Invalid Interpretation Code 0.3-0.7 [facility] Comment on above: Order Comment: Check anti-Xa level every 6 hours while on heparin infusion, or per protocol. Result Comment: [place] roxaban and Apixaban will interfere with the anti Xa assay used to monitor UFH and LMWH. Performed By: #### L [id number] ####[facility] ([facility])[address] [place] [address] BASIC METABOLIC PANELon 10- Anion gap [Moles/Vol] 11 mmol/L Normal 7-20 [facility] Comment on above: Performed By: #### L [id number] ####[facility] ([facility])[address] [place] [address] Calcium [Mass/Vol] 9.1 mg/dL Normal 8.6-10.3 [facility] Comment on above: Performed By: #### L [id number] ####[facility] ([facility])[address] [place] [address] Chloride [Moles/Vol] 107 mmol/L Normal 98-107 [facility] Comment on above: Performed By: #### L [id number] ####[facility] ([facility] [place] [address] CO2 [Moles/Vol] 23 mmol/L Normal 21-31 [facility] Comment on above: Performed By: #### L [id number] ####[facility] ([facility])[address] [place] [address] Creatinine [Mass/Vol] 0.85 mg/dL Normal 0.70-1.30 [facility] Comment on above: Performed By: #### L [id number] ####[facility] ([facility])[address] [place] [address] GLOMERULAR FILTRATION RATE ML/MIN/1.73 SQ M.PREDICTED 94.1 mL/min/1.73m*2 Normal >60.0 [facility] Comment on above: Result Comment: The [facility]???s estimated glomerular filtration rate (eGFR) will no [...] of individuals. Performed By: #### L [id number] ####[facility] ([facility])[address] [place] [address] Glucose [Mass/Vol] 103 mg/dL High 70-100 [facility] Comment on above: Performed By: #### L [id number] ####[facility] ([facility])[address] [place] [address] Potassium [Moles/Vol] 3.8 mmol/L Normal 3.5-5.1 [facility] Comment on above: Performed By: #### L [id number] ####[facility] ([facility])[address] [facility] [address] Sodium [Moles/Vol] 137 mmol/L Normal 136-145 [facility] Comment on above: Performed By: #### L [id number] ####[facility] ([facility])[address] [place] [address] Urea nitrogen [Mass/Vol] 12 mg/dL Normal 7-25 [facility] Comment on above: Performed By: #### L [id number] ####[facility] ([facility])[address] [place] [address] UREA NITROGEN/CREATININ E (MASS RATIO) IN SER/PLAS 14.1 Normal [facility] Comment on above: Performed By: #### L [id number] ####[facility] ([facility])[address] [address] CBCon 03-23-2023 Erythrocyte distribution width (RBC) [Ratio] 13.0 % Normal 11.5-15.0 [facility] Comment on above: Performed By: #### L [id number] ####[facility] ([facility])[address] [place] [address] ERYTHROCYTE MEAN CORPUSCULAR HEMOGLOBIN CONCENTRATION (G/DL) BY AUTOMATED 34.5 g/dL Normal 32.0-35.0 [facility] Comment on above: Performed By: #### L [id number] ####[facility] ([facility])[address] [place] [address] Hematocrit (Bld) [Volume fraction] 41.4 % Normal 39.0-55.0 [facility] Comment on above: Performed By: #### L [id number] ####[facility] ([facility])[address] [place] [address] Hemoglobin (Bld) [Mass/Vol] 14.3 g/dL Normal 13.0-17.0 [facility] Comment on above: Performed By: #### L [id number] ####[facility] ([facility])[address] [place] [address] MCH (RBC) [Entitic mass] 30.4 pg Normal 27.0-33.0 [facility] Comment on above: Performed By: #### L [id number] ####[facility] ([facility] [place] [address] MCV (RBC) [Entitic vol] 87.9 fL Normal 82.0-98.0 [facility] Comment on above: Performed By: #### L [id number] ####[facility] ([facility] [place] [address] PLATELETS (10*3/UL) IN BLOOD AUTOMATED COUNT 243 10*3/uL Normal 150-400 [facility] Comment on above: Performed By: #### L [id number] ####[facility] ([facility])[address] [place] [address] RBC (Bld) [#/Vol] 4.71 10*6/uL Normal 4.20-5.70 [facility] Comment on above: Performed By: #### L [id number] ####[facility] ([facility])[address] [place] [address] WBC (Bld) [#/Vol] 6.84 10*3/uL Normal 4.00-10.60 [facility] Comment on above: Performed By: #### L [id number] ####[facility] ([facility])[address] [place] [address] CT HEAD WO IV CONTRASTon CT HEAD WO IV CONTRAST Normal [facility] CTA CHEST W AND/OR WO IV CON TRASTon 03-23-2023 CTA CHEST W AND/OR WO IV CONTRAST Normal [facility] DSon 03-23-2023 DS Normal [facility] 30on 03-22-2023 30 Normal [facility] 30 Normal [facility] ANESon 03-22-2023 ANES Normal [facility] APTTon 03-22-2023 ACTIVATED PARTIAL THROMBOPLASTIN TIME IN PPP BY COAGULATION ASSAY 36.2 Seconds High 25.0-35.0 [facility] Comment on above: Order Comment: Basel ine aPTT before initiating heparin infusion. Result Comment: Clin ical significance of the APTT is questionable in the presence of heparin. Performed By: #### L [id number] ####[facility] ([facility])[address] [place] [address] BASIC METABOLIC PANELon Anion gap [Moles/Vol] 9 mmol/L Normal 7-20 [facility] Comment on above: Performed By: #### L [id number] ####[facility] ([facility])[address] [place] [address] Calcium [Mass/Vol] 8.9 mg/dL Normal 8.6-10.3 [facility] Comment on above: Performed By: #### L [id number] ####[facility] ([facility])[address] [place] [address] Chloride [Moles/Vol] 111 mmol/L High 98-107 [facility] Comment on above: Performed By: #### L [id number] ####[facility] ([facility])[address] [place] [address] CO2 [Moles/Vol] 22 mmol/L Normal 21-31 [facility] Comment on above: Performed By: #### L [id number] ####[facility] ([facility])[address] [place] [address] Creatinine [Mass/Vol] 0.79 mg/dL Normal 0.70-1.30 [facility] Comment on above: Performed By: #### L [id number] ####[facility] ([facility])[address] [place] [address] GLOMERULAR FILTRATION RATE ML/MIN/1.73 SQ M.PREDICTED 96.2 mL/min/1.73m*2 Normal >60.0 [facility] Comment on above: Result Comment: The [facility]???s estimated glomerular filtration rate (eGFR) will no [...] of individuals. Performed By: #### L [id number] ####[facility] ([facility])[address] [place] [address] Glucose [Mass/Vol] 112 mg/dL High 70-100 [facility] Comment on above: Performed By: #### L [id number] ####[facility] ([facility])[address] [place] [address] Potassium [Moles/Vol] 3.9 mmol/L Normal 3.5-5.1 [facility] Comment on above: Performed By: #### L [id number] ####[facility] ([facility])[address] [place] [address] Sodium [Moles/Vol] 138 mmol/L Normal 136-145 [facility] Comment on above: Performed By: #### L [id number] ####[facility] ([facility])[address] [place] [address] Urea nitrogen [Mass/Vol] 12 mg/dL Normal 7-25 [facility] Comment on above: Performed By: #### L [id number] ####[facility] ([facility])[address] [place] [address] UREA NITROGEN/CREATININ E (MASS RATIO) IN SER/PLAS 15.2 Normal [facility] Comment on above: Performed By: #### L [id number] ####[facility] ([facility])[address] [place] [address] CBCon 03-22-2023 Erythrocyte distribution width (RBC) [Ratio] 13.2 % Normal 11.5-15.0 [facility] Comment on above: Performed By: #### L [id number] ####[facility] ([facility])[address] [place] [address] ERYTHROCYTE MEAN CORPUSCULAR HEMOGLOBIN CONCENTRATION (G/DL) BY AUTOMATED 33.7 g/dL Normal 32.0-35.0 [facility] Comment on above: Performed By: #### L [id number] ####[facility] ([facility])[address] [place] [address] Hematocrit (Bld) [Volume fraction] 40.3 % Normal 39.0-55.0 [facility] Comment on above: Performed By: #### L [id number] ####[facility] ([facility])[address] [place] [address] Hemoglobin (Bld) [Mass/Vol] 13.6 g/dL Normal 13.0-17.0 [facility] Comment on above: Performed By: #### L [id number] ####[facility] ([facility])[address] [place] [address] MCH (RBC) [Entitic mass] 30.5 pg Normal 27.0-33.0 [facility] Comment on above: Performed By: #### L [id number] ####[facility] ([facility])[address] [place] [address] MCV (RBC) [Entitic vol] 90.4 fL Normal 82.0-98.0 [facility] Comment on above: Performed By: #### L [id number] ####[facility] ([facility])[address] [place] [address] PLATELETS (10*3/UL) IN BLOOD AUTOMATED COUNT 241 10*3/uL Normal 150-400 [facility] Comment on above: Performed By: #### L [id number] ####[facility] ([facility])[address] [place] [address] RBC (Bld) [#/Vol] 4.46 10*6/uL Normal 4.20-5.70 [facility] Comment on above: Performed By: #### L [id number] ####[facility] ([facility])[address] [place] [address] WBC (Bld) [#/Vol] 6.03 10*3/uL Normal 4.00-10.60 [facility] Comment on above: Performed By: #### L [id number] ####[facility] ([facility])[address] [place] [address] CONSULTon 03-22-2023 CONSULT Normal [facility] CONSULT Normal [facility] CT CHEST WO IV CONTRASTon CT CHEST WO IV CONTRAST Normal [facility] HEMOGLOBIN A1Con 03-22-2023 Glucose [Mass/Vol] 126 mg/dL Normal [facility] Comment on above: Performed By: #### L [id number] ####[facility] [place] [address] HbA1c (Bld) [Mass fraction] 6.0 % Normal 4.0-6.0 [facility] Comment on above: Performed By: #### L [id number] ####[facility] ([facility])[address] [place] [address] HPon 03-22-2023 HP H&P reviewed. The laurie putnam was examined and there are no changes to the H&P. Will proceed with coronary angiogram for chest pain and elevated high sensitivity troponin. Normal [facility] LIPID PANELon 03-22-2023 CHOL/HDL 4.9 mg/dL Normal [facility] Comment on above: Performed By: #### L [id number] ####[facility] ([facility])[address] [place] [address] Cholesterol [Mass/Vol] 138 mg/dL Normal 120-200 [facility] Comment on above: Performed By: #### L [id number] ####[facility] ([facility])[address] [place] [address] Magnesium [Mass/Vol] 107 mg/dL Normal 40-149 [facility] Comment on above: Result Comment: TRIG LYCERIDE REFERENCE RANGE:20 YEARS AND OLDER CARDIOVASCULAR RISKLESS THAN 150 mg/dL LOW [id number] TO 199 mg/dL BORDERLINE [id number] mg/dL AND GREATER HIGH RISK Performed By: #### L [id number] ####[facility] [place] [address] Magnesium [Mass/Vol] 89 mg/dL Normal 0-160 [facility] Comment on above: Performed By: #### L [id number] ####[facility] ([facility])[address] [place] [address] Magnesium [Mass/Vol] 28 mg/dL Normal 23-92 [facility] Comment on above: Performed By: #### L [id number] ####[facility] [place] [address] NON HDL CHOL. (LDL+VLDL) 110 Normal [facility] Comment on above: Performed By: #### L [id number] ####[facility] ([facility])[address] [place] [address] TOTAL VLDL-C 21 mg/dL Normal 0-40 [facility] Comment on above: Performed By: #### L [id number] ####[facility] ([facility])[address] [place] [address] MRSA/MSSA DNA NASALon 2022 MRSA DNA Negative Normal Negative [facility] Comment on above: Order Comment: Testi ng [...] preclude nasal colonization. Performed By: #### L [id number] ####[facility] ([facility])[address] [place] [address] MSSA DNA Negative Normal Negative [facility] Comment on above: Order Comment: Testi ng [...] preclude nasal colonization. Performed By: #### L [id number] ####[facility] ([facility])[address] [place] [address] TROPONIN Ion 03-22-2023 Troponin I.cardiac [Mass/Vol] 0.03 ng/mL Normal 0.00-0.04 [facility] Comment on above: Performed By: #### L [id number] ####[facility] ([facility])[address] [place] [address] Troponin I.cardiac [Mass/Vol] 0.04 ng/mL Normal 0.00-0.04 [facility] Comment on above: Performed By: #### L [id number] ####[facility] ([facility])[address] [place] [address] TSH3 REFLEX TO FT4on 023 THYROTROPIN (MIU/L) IN SER/PLAS BY DETECTION LIMIT <= 0.05 MIU/L 2.07 mIU/L Normal 0.34-5.60 [facility] Comment on above: Performed By: #### L [id number] ####[facility] ([facility])[address] [place] [address] URINALYSISon 03-22-2023 BILIRUBIN, TOTAL PRESENCE IN URINE Negative Normal Negative [facility] Comment on above: Performed By: #### L [id number] ####[facility] ([facility])[address] [place] [address] Clarity (U) Clear Normal Clear [facility] Comment on above: Performed By: #### L [id number] ####[facility] ([facility])[address] [place] [address] Color (U) Yellow Normal Yellow [facility] Comment on above: Performed By: #### L [id number] ####[facility] ([facility])[address] [place] [address] Glucose (U) [Mass/Vol] Negative Normal Negative [facility] Comment on above: Performed By: #### L [id number] ####[facility] ([facility])[address] [place] [address] HEMOGLOBIN PRESENCE IN URINE Small Abnormal Negative [facility] Comment on above: Performed By: #### L [id number] ####[facility] ([facility])[address] [place] [address] Ketones Ql (U) Negative Normal Negative [facility] Comment on above: Performed By: #### L [id number] ####[facility] ([facility])[address] [place] [address] LEUKOCYTE ESTERASE PRESENCE IN URINE BY TEST STRIP Negative Normal Negative [facility] Comment on above: Performed By: #### L [id number] ####[facility] ([facility])[address] [place] [address] NITRITE PRESENCE IN URINE Negative Normal Negative [facility] Comment on above: Performed By: #### L [id number] ####[facility] ([facility])[address] [place] [address] pH (U) 6.0 [pH] Normal 5.0-8.0 [facility] Comment on above: Performed By: #### L [id number] ####[facility] ([facility])[address] [place] [address] Protein (U) [Mass/Vol] Negative Normal Negative [facility] Comment on above: Performed By: #### L [id number] ####[facility] ([facility])[address] [place] [address] Specific gravity (U) [Rel density] 1.049 High 1.015-1.020 [facility] Comment on above: Performed By: #### L [id number] ####[facility] ([facility])[address] [place] [address] URINALYSIS MICROSCOPICon CASTS IN URINE Normal [facility] Comment on above: Performed By: #### L [id number] ####[facility] [place] [address] CRYSTALS IN URINE Normal [facility] Comment on above: Performed By: #### L [id number] ####[facility] [place] [address] RBC (#/HPF) IN URINE SEDIMENT 6-10 Abnormal None Seen [facility] Comment on above: Performed By: #### L [id number] ####[facility] [place] [address] SQUAMOUS EPITHELIAL CELLS (#/HPF) IN URINE SEDIMENT Few Abnormal None Seen, Occasional [facility] Comment on above: Performed By: #### L [id number] ####[facility] (BEAKER)[address] [place] [address] WBC (LEUKOCYTE) (#/HPF) IN URINE SEDIMENT None Seen Normal None Seen [facility] Comment on above: Performed By: #### L [id number] ####[facility] ([facility]ER)[address] [place] [address] 30on 03-21-2023 30 Normal [facility] D-DIMER, QUANTITATIVEon 10- FIBRIN D-DIMER (UG/L FEU) IN PLATELET POOR PLASMA 0.36 mcg/mL FEU Normal 0.27-0.49 [facility] Comment on above: Order Comment: D-Dim er values of less than 0.50 ug/ml (FEU) are considered to be a negative predictor of thrombosis. However, the D-Dimer result should be used in conjunction with pretest probability and should not be used alone to diagnose a thrombotic event. 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 [address] Additional Instructions: w/PSA Patient Education Documentation recorded [...] Protein Urine Dipstick: Negative (01/29/23 14:37:00) Specific Deal Urine Dipstick: 1.025 (01/29/23 14:37:00) Urine Appearance Urine Dipstick: Clear (01/29/23 14:37:00) Urine Color Urine Dipstick: Yellow (01/29/23 14:37:00) pH Urine Dips (more content not included)... [facility] Comment on above: Result Comment: Elec [...] by: GARCIA GALLEGOS Date: 2022-08-04 17:12 Normal [facility] CT LUNG CANCER SCREENINGon 0 07-26-2022 [...] DAVID EL Date: 2022-07-26 07:42 Normal [facility] INSULINon 07-26-2022 Insulin 4.0 uIU/mL Normal 2.6-24.9 [facility] Comment on above: Performed By: #### I NSULIN #### [facility] [address] [address] [address] Rehana Martinez CBC AUTO DIFFon 07-25-2022 BASO # 0.0 103/ul Normal 0.0-0.1 [facility] Comment on above: Performed By: #### C BC #### [facility] [address] [address] [address] Rehana Martinez Basophils/100 WBC (Bld) 0.2 % Normal 0.2-2.0 [facility] Comment on above: Performed By: #### C BC #### [facility] [address] [place] [address] Dr. Rehana Martinze EO # 0.1 103/ul Normal 0.0-0.7 [facility] Comment on above: Performed By: #### C BC #### [facility] [address] [place] [address] Dr. Rehana Martinez Eosinophils/100 WBC (Bld) 0.5 % Critically low 0.9-7.0 [facility] Comment on above: Performed By: #### C BC #### [facility] [address] [place] [address] Dr. Rehana Martinez Erythrocyte distribution width (RBC) [Ratio] 13.6 % Normal 11.0-15.0 [facility] Comment on above: Performed By: #### C BC #### [facility] [address] [place] [address] Dr. Rehana Martinez Hematocrit (Bld) [Volume fraction] 45.6 % Normal 42.0-54.0 [facility] Comment on above: Performed By: #### C BC #### [facility] [address] [place] [address] Dr. Rehana Martinez Hemoglobin (Bld) [Mass/Vol] 15.1 g/dL Normal 14.0-18.0 [facility] Comment on above: Performed By: #### C BC #### [facility] [address] [place] [address] Dr. Rehana Martinez IG # 0.04 10e3/ul Critically high 0.00-0.03 [facility] Comment on above: Performed By: #### C BC #### [facility] [address] [place] [address] Dr. Rehana Martinez IG % 0.4 % Normal 0.0-0.5 [facility] Comment on above: Performed By: #### C BC #### [facility] [address] [place] [address] Dr. Rehana Martinez LYMPH # 1.7 103/ul Normal 1.2-3.8 [facility] Comment on above: Performed By: #### C BC #### [facility] [address] [place] [address] Dr. Rehana Martinez Lymphocytes/100 WBC (Bld) 17.9 % Critically low 20.5-60.0 [facility] Comment on above: Performed By: #### C BC #### [facility] [address] [place] [address] Dr. Rehana Martinez MANUAL DIFF REQ NO Normal [facility] Comment on above: Performed By: #### C BC #### [facility] [address] [place] [address] Dr. Rehana Martinez MCH (RBC) [Entitic mass] 30.8 pg Normal 25.9-34.0 [facility] Comment on above: Performed By: #### C BC #### [facility] [address] [place] [address] Dr. Rehana Martinez MCHC (RBC) [Mass/Vol] 33.1 g/dL Normal 29.9-35.2 [facility] Comment on above: Performed By: #### C BC #### [facility] [address] [place] [address] Dr. Rehana Martinez MCV (RBC) [Entitic vol] 92.9 fL Normal 80.0-94.0 [facility] Comment on above: Performed By: #### C BC #### [facility] [address] [place] [address] Dr. Rehana Martinez MONO # 1.1 103/ul Critically high 0.3-0.8 [facility] Comment on above: Performed By: #### C BC #### [facility] [address] [place] [address] Dr. Rehana Martinez Monocytes/100 WBC (Bld) 11.2 % Normal 1.7-12.0 [facility] Comment on above: Performed By: #### C BC #### [facility] [address] [place] [address] Dr. Rehana Martinez NEUT # 6.7 103/ul Critically high 1.4-6.5 [facility] Comment on above: Performed By: #### C BC #### [facility] [address] [place], [place] [address] Dr. Rehana Martinez Neutrophils/100 WBC (Bld) 69.8 % Normal 43.0-75.0 [facility] Comment on above: Performed By: #### C BC #### [facility] [address] [address] [address] Rehana Martinez Platelet mean volume (Bld) [Entitic vol] 8.7 fL Critically low 9.5-13.5 [facility] Comment on above: Performed By: #### C BC #### [facility] [address] [address] [address] Rehana Martinez PLT 226 103/ul Normal 150-450 [facility] Comment on above: Performed By: #### C BC #### [facility] [address] [address] [address] Rehana Martinez RBC 4.91 106/ul Normal 4.70-6.10 [facility] Comment on above: Performed By: #### C BC #### [facility] [address] [address] [address] Rehana Martinez WBC 9.6 103/ul Normal 4.0-11.0 [facility] Comment on above: Performed By: #### C BC #### [facility] [address] [address] [address] Rehana Martinez FREE THYROXINE INDEX T7on FTI 3.37 Normal 1.30-4.50 [facility] Comment on above: Performed By: #### L IPID, CMP, TSH, URIC, T7 ####[facility] [address] [place], [place] [address]RiDr. Rehana Martinez T3U 37.0 % Normal 33.0-40.0 [facility] Comment on above: Performed By: #### L IPID, CMP, TSH, URIC, T7 ####[facility] [address] [place], [place] [address]HgDr. Rehana Martinez T4 [Mass/Vol] 9.10 ug/dL Normal 4.50-12.10 [facility] Comment on above: Performed By: #### L IPID, CMP, TSH, URIC, T7 ####[facility] [address] [id number]. Rehana Martinez GLYCOHEMOGLOBIN A1Con 2022 ADA RECOMMENDATION SEE BELOW Normal [facility] Comment on above: Result Comment: ADA RECOMMENDED LIMIT 4.0 - 6.0 ADA THERAPEUTIC TARGET < 7.0 ACTION SUGGESTED > 7.0 Performed By: #### A 1C #### [facility] [address] [address] [address] Rehana Martinez Glucose [Mass/Vol] 128 mg/dL Normal [facility] Comment on above: Performed By: #### A 1C #### [facility] [address] [address] [address] Rehana Martinez HbA1c (Bld) [Mass fraction] 6.1 % Normal 4.5-6.2 [facility] Comment on above: Performed By: #### A 1C #### [facility] [address] [address] [address] Rehana Martinez LIPID PROFILEon 07-25-2022 CHOL-HDL RATIO NORM SEE BELOW Normal [facility] Comment on above: Result Comment: 3.3 - 4.4 LOW RISK 4.4 - 7.1 AVERAGE RISK 7.1 - 11.0 MODERATE RISK >11.0 HIGH RISK Performed By: #### L IPID, CMP, TSH, URIC, T7 ####[facility] [address] [id number] Martinez Cholesterol [Mass/Vol] 137 mg/dL Normal <=200 [facility] Comment on above: Performed By: #### L IPID, CMP, TSH, URIC, T7 ####[facility] [address] [id number] Martinez Cholesterol in HDL [Mass/Vol] 44 mg/dL Normal 40-60 [facility] Comment on above: Performed By: #### L IPID, CMP, TSH, URIC, T7 ####[facility] [address] [id number] Martinez Cholesterol in LDL [Mass/Vol] 75.6 mg/dL Normal [facility] Comment on above: Performed By: #### L IPID, CMP, TSH, URIC, T7 ####[facility] [address] [address]Dr. Rehana Martinez Cholesterol.total/ Cholesterol in HDL [Mass ratio] 3.1 {ratio} Normal [facility] Comment on above: Performed By: #### L IPID, CMP, TSH, URIC, T7 ####[facility] [address] [address]Dr. Rehana Martinez HDL NORMAL > or = 60 mg/dl - LO W CARDIOVASCULAR RISK <40 mg/dl - HIGH CARDIOVASCULAR RISK Normal [facility] Comment on above: Performed By: #### L IPID, CMP, TSH, URIC, T7 ####[facility] [address] [address]Dr. Rehana Martinez LDL CALC NORMAL SEE BELOW Normal [facility] Comment on above: Result Comment: <100 mg/dl OPTIMAL 100 - 129 mg/dl NEAR OR ABOVE OPTIMAL 130 - 159 mg/dl BORDERLINE HIGH 160 - 189 mg/dl HIGH >190 mg/dl VERY HIGH Performed By: #### L IPID, CMP, TSH, URIC, T7 ####[facility] [address] [address]Dr. Rehana Martinez Triglyceride [Mass/Vol] 87 mg/dL Normal <=150 [facility] Comment on above: Performed By: #### L IPID, CMP, TSH, URIC, T7 ####[facility] [address] [address]Dr. Rehana Martinez VLDL CALC 17.4 mg/dL Normal [facility] Comment on above: Performed By: #### L IPID, CMP, TSH, URIC, T7 ####[facility] [address] [address]Dr. Rehana Martinez PROF 14(COMP METB)on 023 Albumin [Mass/Vol] 3.3 g/dL Critically low 3.4-5.0 [facility] Comment on above: Performed By: #### L IPID, CMP, TSH, URIC, T7 ####[facility] [address] [address]Dr. Rehana Martinez Albumin/Globulin [Mass ratio] 0.9 {ratio} Normal [facility] Comment on above: Performed By: #### L IPID, CMP, TSH, URIC, T7 ####[facility] [address] [address]Dr. Rehana Martinez ALP [Catalytic activity/Vol] 105 U/L Normal 46-116 [facility] Comment on above: Performed By: #### L IPID, CMP, TSH, URIC, T7 ####[facility] [address] [address]Dr. Floriirene Martinez ALT [Catalytic activity/Vol] 16 U/L Normal 16-63 [facility] Comment on above: Performed By: #### L IPID, CMP, TSH, URIC, T7 ####[facility] [address] [place], [place] [address]Dr. Rehana Martinez Anion gap [Moles/Vol] 11.8 mmol/L Normal [facility] Comment on above: Performed By: #### L IPID, CMP, TSH, URIC, T7 ####[facility] [address] [place], [place] [address]Dr. Floriirene Martinez AST [Catalytic activity/Vol] 16 U/L Normal 15-37 [facility] Comment on above: Performed By: #### L IPID, CMP, TSH, URIC, T7 ####[facility] [address] [place], [place] [address]Dr. Rehana Martinez Bilirubin [Mass/Vol] 0.6 mg/dL Normal 0.2-1.0 [facility] Comment on above: Performed By: #### L IPID, CMP, TSH, URIC, T7 ####[facility] [address] [place], [place] [address]Dr. Rehana Martinez Calcium [Mass/Vol] 9.1 mg/dL Normal 8.5-10.1 [facility] Comment on above: Performed By: #### L IPID, CMP, TSH, URIC, T7 ####[facility] [address] [address]Dr. Rehana Martinez Chloride [Moles/Vol] 103 mmol/L Normal 98-107 [facility] Comment on above: Performed By: #### L IPID, CMP, TSH, URIC, T7 ####[facility] [address] [address]Dr. Rehana Martinez CO2 [Moles/Vol] 26.0 mmol/L Normal 21.0-32.0 [facility] Comment on above: Performed By: #### L IPID, CMP, TSH, URIC, T7 ####[facility] [address] [address]Dr. Rehana Martinez Creatinine [Mass/Vol] 0.94 mg/dL Normal 0.70-1.30 [facility] Comment on above: Performed By: #### L IPID, CMP, TSH, URIC, T7 ####[facility] [address] [place], [place] [address]Dr. Rehana Martinez EGFR-AF SIERRA LEONEAN >60 Normal >=60 [facility] Comment on above: Performed By: #### L IPID, CMP, TSH, URIC, T7 ####[facility] [address] [place], [place] [address]Dr. Rehana Martinez EGFR-NON AF SIERRA LEONEAN >60 Normal >=60 [facility] Comment on above: Performed By: #### L IPID, CMP, TSH, URIC, T7 ####[facility] [address] [place], [place] [address]Dr. Rehana Martinez Globulin (S) [Mass/Vol] 3.8 g/dL Normal [facility] Comment on above: Performed By: #### L IPID, CMP, TSH, URIC, T7 ####[facility] [address] [address]Dr. Rehana Martinez Glucose [Mass/Vol] 109 mg/dL Critically high 74-106 [facility] Comment on above: Performed By: #### L IPID, CMP, TSH, URIC, T7 ####[facility] [address] [place], [place] [address]Dr. Rehana Martinez Potassium [Moles/Vol] 3.8 mmol/L Normal 3.5-5.1 [facility] Comment on above: Performed By: #### L IPID, CMP, TSH, URIC, T7 ####[facility] [address] [address]Dr. Rehana Martinez Protein [Mass/Vol] 7.1 g/dL Normal 6.4-8.2 [facility] Comment on above: Performed By: #### L IPID, CMP, TSH, URIC, T7 ####[facility] [address] [address]Dr. Rehana Martinez Sodium [Moles/Vol] 137 mmol/L Normal 136-145 [facility] Comment on above: Performed By: #### L IPID, CMP, TSH, URIC, T7 ####[facility] [address] [address]Dr. Rehana Martinez Urea nitrogen [Mass/Vol] 17.0 mg/dL Normal 7.0-18.0 [facility] Comment on above: Performed By: #### L IPID, CMP, TSH, URIC, T7 ####[facility] [address] [address]Dr. Rehana Martinez Urea nitrogen/Creatinin e [Mass ratio] 18.1 mg/mg Normal [facility] Comment on above: Performed By: #### L IPID, CMP, TSH, URIC, T7 ####[facility] [address] [address]Dr. Rehana Martinez TSHon 07-25-2022 TSH 1.619 uIU/mL Normal 0.358-3.740 [facility] Comment on above: Performed By: #### L IPID, CMP, TSH, URIC, T7 ####[facility] [address] [address]Dr. Rehana Martinez URIC ACID SERUMon 07-25-2022 Urate [Mass/Vol] 5.7 mg/dL Normal 3.5-7.2 [facility] Comment on above: Performed By: #### L IPID, CMP, TSH, URIC, T7 #### [facility] [address] [place], [place] [address] Dr. Rehana Martinez [facility] Fish [facility] Urine [facility] ([facility])on 04-06-2022 [facility] Diagnosis Info Invalid Interpretation [facility] Comment on above: Result Comment: A:Ur [...] on: 03/29/2022 10:51:08 Performed By: #### 1 [id number] ####[facility] [address] [id number] Patient Educationon 03-27-20 Patient Education Urology Benign [...] Follow these instructions at home: ? Take mhlu-uos-efbunyd and prescription medicines only as told by [...] You d (more content not included)... [facility] Urology Office/Clinic Noteon 03-27-2022 Urology Office/Clinic [...] [facility] [address], [place] [address]- Additional Instructions: 6 mos PSA free & [...] Social Hist (more content not included)... Normal [facility] Comment on above: Result Comment: Elec tronically Signed By: Casper RAUSCH MD\.br\Date and Time Signed: 03/27/22 10:34 EDT\.br\Electronically Co-Signed By: Inga Woodruff\.br\Date and Time Co-Signed: 03/27/22 10:32 EDT Coding Summary.on 03-22-2022 Coding Summary. CD:[id number]:[id number] Gh0bWw+ PGhlYWQ+UK8DQDDsI35jtDDwoH4 GY4rCXK8QVUAGXDDZHY9CGX3yvT Z1ZExjE4EtzdGh ApijfJFaGH09MZg6PAN9jGjrEJt jtY1ciMXlJ2t5DxMhUI08lJ21EY iaEFFlPaT8UfYtkztmlULp A7kfNzZhrQMyUcr+PHRhYmxlIHd pOILlZEscSLHfHxJqzUjzKB5cGf 9yZGVyLWNvbGxhcHNlOiBj j0qjQSBlYJiaLG5znZkkX3YxcXQ 9IXTdo7m1Ul26tPS+NVLzRON6lR tpAPijk704LaSvt5pqEQH5 lTRsWXsuZJG4Y51aa4A1VBOeYNO rEZW3pMR9iX6qjVdzfnaoX6TuuQ JvJvX5HII0cVDypC9xnTqj stttyW9mWlo+N96GGU1BTVRZJO8 LAdd9B4DxArcqzCI+FX01PXCnIC 33bNSqxIGif7qevDr4VhZk PPNkOYO8bRldIPtnu7RvRHHlM40 ptJMfu6Y7ABWbrCkekKOvKuDxlZ V9vF5sJFoixhlcg4odvsem Xwlhl7xsar06bJ73N84kANdoSDR tZAE2XLFbXYHnnUkzbf0iwD8xEe 8+ATmjg6fue0cjsZq6OeNl WKKvlyNfyPftYIA1r8AfXl23I8W jkIhyt9BoGqn2tb73fGSjn6H6eN W0UErsDDJxwR2lHMozNaH8 LHJtQdWydW70iHCaUWymVz7mvUq myDhePZ2zODTduxdgBOWxzF3iOC KoxQGafDgmZH5pAQOzvwgg q927OcOnOXQ3MIHowFByW2UakN9 kUbGjEWAzRKDkO0QkoLJkPEpnZ2 99OScjXlX4NPJnelZeI7Wh IKUzjYfpMdK1z8X7Cw3Rm5Zopxk kAAQ2TLnuMRTsMlX4HvHfXoF9O4 IzCmi5CSXskPkfVH3yI0Fu VIRjmfknmgqxbQY0HALiYBWiaD0 7pPEoRGokIt0mm7W0g090HKPtCT RuoF27Qm8fnLclWNDydLXO gI8lydcmd5chzkruAaPjWPTcSTj 9FFt9EXJxnBllBnBuYLU6SlK1CD I7sKQgfQ6lkDtpgejmlB1h Oyc+L10wfP9kVGI7IYW0bqbwLMF nykQxTI25XM37U8QvKypfsIEhaJ U+WESnjvSxlKajJK1bMnLo w5eit4UdDTpsP0ByVZHxLHkuMme 2LFTsMCY4mZB0aM0gICDrVDzpd4 C5oNA7R3XmoxAqxf6qz8vg UEBiXDybJ73wnAEos8R3XWKuhGF 8TUAaxKvjXbAihK24Suf+PGNvbG qek5YcDhclx5euv9bgnMv8 KzNiZWYnzzSvlCdgLZG5o7SpVd1 2Z50rZCmfUSRfFFYbQQLsMXJbtV sqyk0ssV5kYb6+PGNvbCB3 pGZ0fS0xCBBwEwM0EMajX267TjR vqBCjZrxtv5mni2zcpJa6VzJcCO PdlqEqqHmpIJC9b6MvEs88 P68sRKsdSTHgRXKxMSQjZTZefFr wna4frH4lHb8+RI2og2hlhr36tJ 48dHI+XHWcMOV2lTmrZBmg OGEwsK7dYQqoOkH8KJWrQoJnrO2 1kWIqFRscNr4uiJktbRodSR0zIX Azoyibh626LmOfr0ouGTXl cJOrWCubGQG6A08ut0P3UVYcLXM gLZX2mQP9fS1caTypgiitaOWaoN iqeuDlpMzgKYoqIOsxI336 IHRvcDsnPlBhdGllbnQgTmFtZTo 9V9EgEkd3POQdiSykKL8lqQWfYJ gdLm8scYgysAhnVY9qBMOq yeowy858DoWww2xyQDFwqCVdFPq nTLI8L08og0J2RKXoIQQaOJU9bW U7jY2yyYqvqceprXIsfZtc uqNueRvqXNcoCMliM775YMVwoUa eWsLabyLsVCJvdVF8WN73UB85fV Cks0T9bJK7H5JsYLAlycth brfhyFD3SHKqMWJtpQ62Ox4slPs oAm7bKSXqHHS4OOJpjCWcB2QaiP 4cAjScHRHpLWQrF4FtaEMv CPqiB115AMzoKkV9ORAuafJwV0I hBUQbiPfcEhF7g7J1Lv3JP1Z9KG 06RC72zWIxf4K8cVA4Q2Un HMVxjvxuqaytzBA9QVRlTTGfgX5 3Bn4czOehFn7bQECoULN8PQAelT MmS0GjyT1xZvUgPKRjSZCm Z4ZniVBeTVyqK953ISwcNlI5LSP uroAgD5UxRCMxtKhaItJ5s5D7Ap 9JWVs1VG10AA07yPSfe0H8 pYN4C8WtJQJtokfxswkfxWT6PKI sFPVygT92Wa5xuZscIk9dMSOoFG T7ORAoxIIbF9HjbN2mIqQd EXUwOFCqM6WhxPMtARbzS312CTh qJnE0HTVbboDsZ9CgKXFloDvdGb M3i8N3Yv9USHLdGG90NNB6 jWR1BF95PT39Y3HiYfatnEGgkWU +PHRhYmxlIHdpZHRoPScxMDAlJy YnpWlaVM5fZq0tVTIgBISc oBoqnHNrXzHqt3mxVINiAIjkQC0 rwSyaG4EdnEW3YQWct3e0Ht64S3 1aK0VuaTW+QBDpuUY3nCE1 bD1eWlOiZzU9VMhbU773LvUifRP lHehcs7lnp3zxbJw2YqW5SZZndg CrvWbtXQA7y2WmIh48A09z IHdpZHRoPSIxNSUiIHZhbGlnbj0 vaQ7wYw5+OHErmBN5yVN0gP0sRu MeIeP1XZblI282JgTyjGAe Wxjae9aju6wojKj1NnSeQIXpbdK lbWwpMDC4p8ChZb56I7KjzVpqp7 RrSrb0wi28pTTxo6W3hOM5 S6CvWRNgdsvdrQAecVadKM1sACM xgjjnQBPccS8vGNBgZ8k6LdUwLf H0TWdkA3OvjmN9RPYxwYPi UWehKRN1H47us5C8ZJGdZRGsOKZ 7fVK2lW5vlUwneetspIXbbIvfgp RfzVzaTOwuNLjsF061RRCd dUdsGFZcgI5xOGWrvYQnnNepUP1 qZPXsdpfeZlWBFlGvJ4BtHWuPZX 4gQTwvdGQ+EJQmHZD4hMne BHtjWVTnyY1tYJSqJ5h5KwTzAhW 0NZmbZ6VqYFIelxvoJj76kW5gYh HdPkN0PAmrQ6IgiyK8OJLz zHFwVKqjZEF5B12ic9Q2CWAzQJB hMFH3cHL7fV1tfKdzsmdokVYmsO ncpbWwfIxrJWmiAVgeQ368 SBMjnPomGrK2TtGyXgP6XTT7O0U rDzu4OAGntPfiDI7plLOePPvzDv 5meShdnRfbPX1iMYSgmguw DAJcxM5jAQMhlFEasRpmKN6mZNC yrjsaa313UbEiNAQ9WDWxgOPuO4 QfyM2qNsPgWGKjEUOcI4Wz kVKjQJndN856OSvbUjT7JEHosrI oM3MnRWWbdUvnMzR9b3H2Ws55QY BZZWFyczwvdGQ+PHRkIHN0 yZalFDphLNWayO6aQLVpU0l0QjT xYkQ2EYaiE2DpGBVfbqjyFw76uF 5yRhEnTxO4GKhpY8DwhcJ5 ATFbnMVhENruHYM2X15to3T2QQI jWOAxOLJ6yBU1fU3ibHiklbgdgG VmdDsgdmVydGljYWwtYWxp R647MBItkYueQy2roLF6J7IcTlq 9ZWThiDglQU2zfYXnTYfpQd7ocU wooLldFX3zNGJqaynyYCOh bN4eKNBrjMXjiWzmZZ1sOYXvfnb tk950IdGlBQO8WCTqgGVwY7JkhK 8vCpRlCGCyYXSuN5ItuSXh RZxuN616ZYnxBzP6VJKagoAsO4D bNDQhdCwnTsP3q0E4Cz2OjUWoHC JfVW26AQ98GW61S7SwSojr dGFibGU+PHRhYmxlIHdpZHRoPSc vQWLtBePryFryRQ5aCd9jQUQhWY RkyTqfdPSgRgSzn4kdMGXj BIcmOC5jmMsyP2FyvAY2KHMgu1o 6Gh91E67zA1WylXT+REYywSG4rC I8mV6zDyGaCvC1QHthC887 TnIofHWpLdnfn0rcw7lfmQq2MzY gLLQosnCuyCweATG5i2IgAn62I6 9sIHdpZHRoPSIyMCUiIHZh bJuyyp8skS7bLq2+BUNxmUO7mUI 5bA6xGqYtTsY0UIlwZ700BkAcqR CwVcrxJ93aE8YhiXR+PHRy Pzw2NRKmpUygGQ7pcAZxTGdwHj8 yLGS6XzVtNrXcVRzuM6GdKHYuys kfmraarWZ7UJMmTVJrbL89 Zf4sqGuzVb5ePFHaYDV9IULxuEC cS5PcgO5kPvDtPYTpUUHzB8KrbD WyWBsrN564LOltRbL9RPTl jwJzA7HhORGazKjsIwS5l8W9Xa1 KaWtewXAgKP8jUkPySPr7B9BbDo l8QEUrbDbvYE6zqNGuWDnc Lb4siWdzaNgmSX8bDCDqoycre88 5YmYrz0stGWQqtJYwJJcyYLT6V0 7xt8V5GJVnAMGeYGK2eQY0 aB1plNryothxeRPirFbcwpYhgLy vNMquNAxzX840ZZWkjGqfEtFYAw p5K1FzOmf8JJMdbDrdAO1u nPKlHYycGy6apWzrwQprBA8pYBB fdztds508PrSly3yeACMnfCRtIJ guKEL7Z23ri5R1SIQpQSYr KHL9gNJ9qP3yhPbammrxlFRlgYc zjuFeiIpkZCgkAIplX370UVEleX bxHq8CVij8Z7MwUlz6ASKz rMpjCN7wbFCtAUmuFp7usDyaoWf pQR2jIQIngwfsk729ZuRjz3ezMN QoiNDsRHiiTYC0H35vq0D9 YDDuJJAqOAK8eDN3bO7jeEvvdbi gbGVmdDsgdmVydGljYWwtYWxpZ2 46IHRvcDsnPlBheWVyOjwv dGQ+KI61hf12J0XgBmopKvo5MOT fBBM8oAW0bX9jEDYoIFvua4Y5zT V1M6ZhyqYkvf2ms8cmROFe ZTog (more content not included)... [facility] Consent for Procedure/Surger yon 03-21-2022 Consent for Procedure/Surgery [id number] [facility] Consent for Treatmenton Consent for Treatment [id number] [facility] Inpatient Patient Summaryon 03-21-2022 Inpatient Patient Summary [place] [id number] Clinical Summary Person Information Name: GUI ORTIZ SR Age: 67 Years : 1955 Sex: Male PCP: Angella Jaquez MD Marital Status: Phone: [phone] Race: White Ethnicity: or Language: Swiss Visit Id: Visit 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 / ELEVATED PSA / HEMATURIA Speciality: Acuity: Enc Type: Outpatient Med Service: Surgery Arrival: 03/21/2022 10:25:04 Discharge: Dispo Type: Address: [address] [place] [id number] Provider Notes: Diagnosis: Problems Active Asymptomatic microscopic [...] Follow up: With: Address: When: Casper RAUSCH [address] [place] [address] Pixta (1) Within 5 to 7 days With: Address: When: [place] [address] Pixta (1) Type Location Start [facility] Office Visit [facility] [place] 05/22/2022 11:00 AM 05/22/2022 11:15 AM Confirmed Patient Education Information: [facility] IntraOperative Documentson 1 IntraOperative Documents [id number]:127 [facility] Main OR Intraoperative Recor don 03-21-2022 Main OR Intraoperative Record IntraOp Document Type FTURO Summary Primary Physician: Casper RAUSCH MD Finalized Date/Time: 03/21/22 11:42:35 Pt. Name: GUI ORTIZ SR/Sex: 1955 Male Med Rec #: [id number] Physician: Casper RAUSCH MD Financial #: [id number] Pt. Type: O Room/Bed: / Admit/Disch: 03/21/22 [...] Usha Arevalo Role Performed Surgeon - Primary Multimedia Manager - Primary Scrub - Primary Time [...] SONIA Cavanaugh RN, Ruthann 03/21/22 11:42 [facility] Main OR Preoperative Recordo n 03-21-2022 Main OR Preoperative Record Holding Area Document Type FTURO Summary Primary Physician: Casper RAUSCH MD Finalized Date/Time: 03/21/22 11:17:09 Pt. Name: GUI ORTIZ SR /Sex: 1955 Male Med Rec #: [id number] Physician: Casper RAUSCH MD Financial #: [id number] Pt. Type: O Room/Bed: / Admit/Disch: 03/21/22 [...] Complaints of Pain: No Skin Integrity Intact, [place], Warm, & Dry Vitals - EU Blood Pressure 100/70 Pulse 59 bpm Respirations 16 br/min SPO2 98 % Additional CHANEL EASON Reviewed Yes Specimens Collected Last Modified By: SONIA Cavanaugh RN, Ruthann 03/21/22 11:17:07 General Comments: Temp 36.4 Temporal Finalized By: Mao EASON, Irina CSOTT Document Signatures Signed By: Adwoa Little LPN 03/21/22 10:38 SONIA Cavanaugh RN, Ruthann 03/21/22 11:17 [facility] Operative Reporton 2 Operative Report Patient: [...] with antibiotic coverage, Follow up arranged. [facility] Comment on above: Result Comment: Elec tronically Signed By: Casper RAUSCH MD\.br\Date and Time Signed: 03/21/22 11:28 EDT Outpatient Surgery Discharge Instructionon 03-21-2022 Outpatient Surgery Discharge Instruction [address] [address] Patient Discharge Instructions PERSON INFORMATION [...] Follow up: With: Address: When: Casper RAUSCH [address] [place] [address] [place] [address] Business (1) Within 5 to 7 days With: Address: When: Casper [address] [address] [facility] (1) Type Location Start [facility] Office Visit [facility] [place] 05/22/2022 11:00 AM 05/22/2022 11:15 AM Confirmed [...] to serve you. Thank you for choosing [facility] Patient Educationon 03-21-20 Patient Education [facility] UroVysion Fish and Urine Cyt o ([facility])on 03-21-2022 [facility] Method of Extraction Voided [facility] Comment on above: Performed By: #### 1 [id number] ####[facility] [address] [place] [address] [facility] Number of Jars 1 Invalid Interpretation [facility] Comment on above: Performed By: #### 1 [id number] ####[facility] [address] [place] [address] [facility] Specimen Urine Normal [facility] Comment on above: Performed By: #### 1 [id number] ####[facility] [address] [place] [address] [facility] Type of Service Technical Only [facility] Comment on above: Performed By: #### 1 [id number] ####[facility] [address] [place] [address] Lab Reportson 03-15-2022 Lab Reports [id number]:127 [facility] PSA, FREE AND TOTAL RATIOon 03-13-2022 % Free PSA 15.5 % Normal [facility] Comment on above: Result Comment: [...] men. Performed By: #### P SAFREE #### [facility] [address] [place] [address] Dr. Rehana Martinez Prostate specific Ag [Mass/Vol] 4.9 ng/mL Critically high 0.0-4.0 [facility] Comment on above: Result Comment: Arnoldo CHOPRAIA methodology. . According to the [employer], Serum PSA should decrease and [...] disease. Performed By: #### P SAFREE #### [facility] [address] [place] [address] Dr. Rehana Martinez PSA, Free 0.76 ng/mL Normal N/A [facility] Comment on above: Result Comment: Arnoldo ALEJANDRO methodology. Performed By: #### P SAFREE #### [facility] [address] [place] [address] Dr. Rehana Martinez CREATININEon 12-14-2021 Creatinine [Mass/Vol] 1.01 mg/dL Normal 0.70-1.30 [facility] Comment on above: Performed By: #### C MAXINE #### [facility] [address] [place] [address] Dr. Rehana Martinez EGFR-AF SIERRA LEONEAN >60 Normal >=60 [facility] Comment on above: Performed By: #### C MAXINE #### [facility] [address] [place] [address] Dr. Rehana Martinez EGFR-NON AF SIERRA LEONEAN >60 Normal >=60 [facility] Comment on above: Performed By: #### C MAXINE #### [facility] [address] [place] [address] ABD/PELV W CONon [...] by: BRANDIE RUDD Date: 2021-12-14 11:36 Normal [facility] Vital Signs Date Time Vital Sign Value Performing Clinician Yunier nunez 03-27-2022 10:11-0400 Blood Pressure Location TEVIZZ [facility] 03-27-2022 10:11-0400 Diastolic blood pressure 57 mm[Hg] [employer] [facility] 03-27-2022 10:11-0400 Heart rate 57 /min [employer] [facility] 03-27-2022 10:11-0400 Respiratory rate 16 /min [employer] [facility] 03-27-2022 10:11-0400 Systolic blood pressure 154 mm[Hg] Casper RAUSCH [facility] 12-05-2021 08:16-0400 Blood Pressure Location Monica Mondragon Jr. [facility] 12-05-2021 08:16-0400 Diastolic blood pressure 84 mm[Hg] Monica Mondragon Jr. [facility] 12-05-2021 08:16-0400 Heart rate 75 /min Monica Mondragon Jr. [facility] 12-05-2021 08:16-0400 Systolic blood pressure 118 mm[Hg] Monica Mondragon Jr. [facility] Encounters Encounter Date Encounter Type Care Provider Facility Start: 02-11-2024 ambulatory ELIZABETH Teague ty:PRICILA Chavis Start: 05-16-2023 ambulatory [facility] Start: 05-14-2023 End: 05-14-2023 ambulatory VALENTINA CABRERA [facility] Start: 05-06-2023 Evaluation and manag ement of inpatient ELINA [facility] Start: 05-03-2023 End: 05-04-[address] [facility] Start: 05-01-2023 Evaluation and manag ement of inpatient [facility] Start: 04-30-2023 Evaluation and manag ement of inpatient [facility] Start: 04-30-2023 Evaluation and manag ement of inpatient [facility] Start: 04-30-2023 Evaluation and manag ement of inpatient [facility] Start: 04-29-2023 Evaluation and manag ement of inpatient [facility] Start: 04-27-2023 Evaluation and manag ement of inpatient [facility] Start: 04-26-2023 Evaluation and manag ement of inpatient [facility] Start: 04-25-2023 Evaluation and manag ement of inpatient [facility] Start: 04-25-2023 Evaluation and manag ement of inpatient KAREY J [facility] Start: 04-24-2023 Evaluation and manag ement of inpatient [facility] Start: 04-24-2023 Evaluation and manag ement of inpatient [facility] Start: 04-23-2023 [facility]: 04-23-2023 Evaluation and manag ement of [facility] Start: 04-23-2023 End: 04-24-2023 Evaluation and management of inpatient [facility] Start: 04-23-2023 Evaluation and manag ement of inpatient KAREY Dhaliwal [facility] Start: 04-23-2023 [facility] Start: 04-22-2023 Evaluation and manag ement of inpatient [facility] Start: 04-22-2023 Evaluation and manag ement of inpatient [facility] Start: 04-22-2023 Evaluation and manag ement of inpatient [facility] Start: 04-22-2023 End: 05-01-2023 Evaluation and management of inpatient [facility] Start: 04-09-2023 End: 04-10-2023 Encounter for preprocedural cardiovascular examination [facility] Start: 04-09-2023 End: 04-10-[address] [facility] Start: 04-04-2023 ambulatory [facility] Start: 03-23-2023 Evaluation and manag ement of inpatient KAREY Dhaliwal [facility] Start: 03-23-2023 Evaluation and manag ement of inpatient KAREY Dhaliwal [facility] Start: 03-23-2023 Evaluation and manag ement of inpatient DOMENIC [facility] Start: 03-22-2023 Evaluation and manag ement of inpatient JENNA [facility] Start: 03-22-2023 Evaluation and manag ement of inpatient RODGER [facility] Start: 03-21-2023 End: 03-23-2023 Evaluation and management of inpatient [facility] Start: 01-29-2023 End: 01-30-2023 ambulatory ELIZABETH LNIDSAY Facility: [place] Start: 01-29-2023 End: 01-29-2023 Patient encounter procedure ELIZABETH LINDSAY [facility] Start: 09-11-2022 ambulatory [facility] Start: 09-06-2022 End: 09-07-2022 ambulatory [facility] Start: 09-04-2022 ambulatory [facility] Start: 08-06-2022 End: 08-07-2022 ambulatory [facility] Start: 08-04-2022 End: 08-05-[address] ANGELLA JAQUEZ . Facility: Start: 07-25-2022 End: 07-26-[address] ANGELLA JAQUEZ . Facility: Start: 03-27-2022 End: 03-28-2022 ambulatory Casper RAUSCH Facility:[facility] Start: 03-27-2022 End: 03-27-2022 Patient encounter procedure Casper RAUSCH [facility] Start: 03-21-2022 End: 03-22-2022 ambulatory Casper RAUSCH Facility:[facility] Start: 03-21-2022 End: 03-21-2022 Patient encounter procedure Casper RAUSCH [facility] Start: 03-12-2022 End: 03-13-[address] CASPER RAUSCH Facility: Start: 02-05-2022 End: 02-05-2022 Patient encounter procedure Monica Mondragon Jr. [facility] [place] Start: 12-14-2021 End: 12-15-2021 ambulatory MONICA MONDRAGON JR Facility: Start: 12-05-2021 End: 12-05-2021 Patient encounter procedure Monica Mondragon Jr. [facility] Procedures Date Procedure Procedure Detail Performing Clinician Start: 05-16-2023 Follow-up visit MICHAEL IE PATRICK Start: 05-14-2023 Follow-up visit MICHAEL IE PATRICK Start: 04-04-2023 Follow-up visit MICHAEL IE PATRICK Start: 09-11-2022 Follow-up visit MICHAEL IE PATRICK Start: 09-04-2022 Follow-up visit MICHAEL IE PATRICK Start: 07-25-[address] FABIOLA JAQUEZ . Comment on above: Performed By: #### P [facility] #### [facility] [address] [place] [address] Dr. Rehana Martinez Start: 03-21-2022 Cystoscopy ELIZABETH JOHNSTON Start: 12-14-[address] FABIOLA JAQUEZ . Comment on above: Performed By: #### P SAD ####[facility] [address] [place], [place] [address]PaStarr Martinez Start: 01-23-2018 Cystoscopy Monica stephen Jr. Comment on above: 07/22/09, 01/23/18 07/22/09, 01/23/18 Immunizations Immunization Date Immunization Notes Care Provider Cipriano moody 06-20-2021 SARS-CoV-2 (COVID-19 ) mRNA BNT-162b2 vax Casper RAUSCH [facility] 09-13-2020 SARS-CoV-2 (COVID-19 ) Ad26 vaccine, recombinant Monica Mondragon Jr. [facility] 08-22-2020 SARS-CoV-2 (COVID-19 ) Ad26 vaccine, recombinant Monica Mondragon Jr. [facility] NEGATED: Highlighted row has not occurred!12-05-2021 influenza virus vaccine, unspecified formulation Monica Mondragon Jr. [facility] Payers Date Payer Category Payer Medicare [id number] 1960 Unknown [id number] 1955 Unknown [id number] 2.16.84 [id number] 1955 Unknown [id number] 2.16.84 [id number] 1955 Unknown [id number] 2.16.84 [id number] 1955 Unknown [id number] 2.16.84 [id number] 1955 Unknown [id number] 2.16.8 [id number] 1955 Unknown [id number] 2.16.8 [id number] 1955 Unknown [id number] 2.16.8 [id number] 1955 Unknown [id number] 2.16.8 [id number] Social History Date Type Detail Facility Start: 12-05-2021 Tobacco smoking status Heavy t obacco smoker (finding) [facility] Sex Assigned At Male [facility] Functional Status Date Assessment Result Facility 01-29-2023 Functional Status N/A [facility] 03-27-2022 Functional Status N/A [facility] 03-15-2022 Functional Status N/A [facility] 12-05-2021 Functional Status N/A [facility] Clinical Notes 05-23-2021 to 05-16-2023 LaboratoryLaboratoryLaboratoryLaboratory Note Date & Type Note Facility 05-16-2023 Note [facility] 05-16-2023 Note [facility] 05-16-2023 Note [facility] 05-14-2023 Note [facility] 05-14-2023 Note [facility] 05-01-2023 Note Patient provided a c opy of the AVS. All questions answered. Patient discharged with belongings and taken down with transport via wheelchair and family at bedside. [facility] 05-01-2023 Note [facility] 05-01-2023 Note [facility] 05-01-2023 Note [facility] 05-01-2023 Note [facility] 04-30-2023 Note [facility] 04-30-2023 Note [facility] 04-29-2023 Note [facility] 04-29-2023 Note [facility] 04-29-2023 Note [facility] 04-29-2023 Note [facility] 04-28-2023 Note [facility] 04-28-2023 Note [facility] 04-27-2023 Note [facility] 04-27-2023 Note [facility] 04-27-2023 Note [facility] 04-27-2023 Note [facility] 04-26-2023 Note [facility] 04-26-2023 Note [facility] 04-26-2023 Note [facility] 04-26-2023 Note [facility] 04-26-2023 Note [facility] 04-26-2023 Note [facility] 04-25-2023 Note [facility] 04-25-2023 Note Attempted to call wi fe to get information and give updates. Was unable to reach her, will continue to try. [facility] 04-25-2023 Note [facility] 04-25-2023 Note [facility] 04-25-2023 Note [facility] 04-24-2023 Note Patient is still on vent support. Per RN was off and placed back on yesterday. Consult for s/p CABG. SW to follow. [facility] 04-24-2023 Note [facility] 04-24-2023 Note Physical Therapy Patient intubated/sedated at this time. PT will check back and follow as appropriate. Stella Bustos, CHANTEL [facility] 04-24-2023 Note [facility] 04-24-2023 Note Occupational Therapy Cancel Note Reason: Patient intubated and sedated at this time. OT will continue to follow and will re-attempt as able. Time in: 0808 Check no charge Thelma Jin MOT, OTR/L, CLT [facility] 04-24-2023 Note [facility] 04-24-2023 Note [facility] 04-23-2023 Note [facility] 04-23-2023 Note [facility] 04-23-2023 Note [facility] 04-23-2023 Note [facility] 04-23-2023 Note [facility] 04-22-2023 Note TRIGGER: PRESSURE 1:1 FULLY AUGMENTED [facility] 04-22-2023 Note TRIGGER: PRESSURE 1:1 FULLY AUGMENTED [facility] 04-22-2023 Note INSERTED WITHOUT COM PLICATION USING STERILE TECHNIQUE; DRAINING CLEAR YELLOW URINE; TO BE MONITORED BY ANESTHESIA FOR DURATION OF THE CASE [facility] 04-22-2023 Note [facility] 04-22-2023 Note [facility] 04-22-2023 Note [facility] 04-09-2023 Note [facility] 04-09-2023 Note [facility] 04-04-2023 Note [facility] 04-01-2023 Note [facility] 03-23-2023 Note [facility] 03-23-2023 Note [facility] 03-22-2023 Note [facility] 03-22-2023 Note [facility] 09-11-2022 Note [facility] 09-04-2022 Note I reviewed with the resident the medical history and the resident???s findings on physical examination. I discussed with the resident the patient???s diagnosis and concur with the treatment plan as documented in the resident note. Shmuel Vásquez MD [facility] 09-04-2022 Note [facility] 03-27-2022 Hospital Discharge instructions Patient [...] urethra. Follow these instructions at home: Take xtpp-pwl-fafdwil and prescription medicines only as told by [...] 06/03/2006 Document Revised: 04/28/2019 Document Reviewed: 07/08/2017 Stream Patient Education 2020 [employer]. Follow Up Care 03/21/2022 11:25:28 With:Giancarlo Campbell MD, ORLIN Pena Address: [facility] [address] [place] [address]- When: Unknown [facility] 03-21-2022 Note [id number]:127 [facility] 02-27-2022 Hospital Discharge instructions Follow Up Care 02/27/2022 13:20:12 With:Casper RAUSCH Address: [address] [place] [address] [address]- Business (1) When:5 to 7 days With:Casper RASUCH Address: [address] [place] [address]- Business (1) When: Unknown [facility] 12-05-2021 Hospital Discharge instructions Patient Education 12/05/2021 [...] Follow these instructions at home: Medicines Take vzrk-efa-cbfhyhc and prescription medicines only as told by [...] or the blood stops without treatment. Take movx-qse-juxzirm and prescription medicines only as told by your health care provider. Drink enough fluid to keep your urine clear or pale yellow. This information is not intended to replace advice given to you by your health care provider. Make sure you discuss any questions you have with your health care provider. Document Released: 06/03/2006 Document Revised: 10/28/2019 Document Reviewed: 07/06/2017 Stream Patient Education 2020 [employer]. Follow Up Care 05/30/2021 15:33:59 With:Monica Mondragon Jr., MD, URO Address: [facility] [address] [place] [phone] When: Unknown [facility] 05-23-2021 Hospital Discharge instructions Follow Up Care 05/23/2021 11:27:47 With:ELIZABETH LINDSAY PA-C, URL Address: [facility] [address] [place] [address] When:Within 1 Year(s) Comments:w/PSA [facility] Evaluation + Plan note Future Appointments Appointment Date:05/22/2022 11:00:00 AM Scheduled Provider:Monica Mondragon Jr., MD Location:[facility] Appointment Type:URO Office Visit Diagnostic Tests PendingPSA Total 12/05/21 Future Scheduled TestsPSA Free & Total 05/30/21 [facility] Evaluation + Plan note Future Appointments Appointment Date:05/22/2022 11:00:00 AM Scheduled Provider:Monica Mnodragon Jr., MD Location:[facility] Appointment Type:URO Office Visit Future Scheduled TestsPSA Free & Total 05/30/21 [facility] Evaluation + Plan note Future Appointments Appointment Date:03/27/2022 09:45:00 AM Scheduled Provider:Casper RAUSCH MD Location:[facility] Appointment Type:URO Office Visit Appointment Date:05/22/2022 11:00:00 AM Scheduled Provider:Monica Mondragon Jr., MD Location:[facility] Appointment Type:URO Office Visit Diagnostic Tests PendingUroVysion Fish and Urine Cyto ([facility]) 03/21/22 Future Scheduled TestsPSA Free & Total 05/30/21 [facility] Evaluation + Plan note Future Appointments Appointment Date:09/18/2022 09:15:00 AM Scheduled Provider:Monica Mondragon Jr., MD Location:[facility] Appointment Type:URO Office Visit Diagnostic Tests PendingPSA Free & Total 06/17/22 Future Scheduled TestsPSA Free & Total 05/30/21 [facility] Evaluation + Plan note Future Appointments Appointment Date:02/11/2024 08:30:00 AM Scheduled Provider:ELIZABETH LINDSAY PA-C Location:[facility] Appointment Type:URO Office Visit Diagnostic Tests PendingPSA Total 01/29/23 [facility] Hospital course Narrative No data available for this section [facility] Discharge instructions No data available for this section [facility] Progress note No data available for this section [facility] [place] Summary Purpose Family History No Family History Records FoundNo Family History Records FoundNo Family History Records Found Advance Directives No Advanced Directives Records FoundNo Advanced Directives Records FoundNo Advanced Directives Records Found Additional Source Comments Care Team (unrecognized sect ion and content) Personnel Name: Angella Jaquez MD Address: [address] [place] [address] Personnel Name: Angella Jaquez MD Address: [address] [place] [address] Personnel Name: Angella Jaquez MD Address: Address: [address] [place] [address] Personnel Name: Angella Jaquez MD Address: Address: [address] [place] [address] Personnel Name: Angella Jaquez MD Address: Address: [address] [place] [address] (unrecognized sect ion and content) No Status Records FoundNo Status Records FoundNo Status Records Found INFORMATION SOURCE (unrecogn ized section and content) DATE CREATED AUTHOR 08/10/2022 [facility] DATE CREATED AUTHOR AUTHOR'S ORGANIZ ATION 02/13/2023 [facility] DATE CREATED AUTHOR AUTHOR'S ORGANIZ ATION 06/26/2023 [facility] FOR RECORDS PERTAINING TO PATIENTS [...] BE BASED ON THE PRIMARY CLINICAL RECORDS. [employer] provides no warranty or guarantee of the accuracy or completeness of information in this document.
--- NOTE | 2023-07-05 11:19 | XR_ITS ---
The [address] [address] Patient Name: ESEQUIEL ORTIZ MRN: [id number] date: 1955 Sex: M Assigned Patient Location: ER Current Patient Location: ER Accession/Order Number: [id number] Exam Date: 07/05/2023 11:25 Report Date: 07/05/2023 11:43 At the request of: RIZWANA HOLDEN Procedure: XR chest 1V EXAM: XR chest 1V HISTORY: cp COMPARISON: Chest study dated 06/27/2023 TECHNIQUE: AP view of the chest was obtained with portable technique at 11:26 AM. FINDINGS: Heart and mediastinal contours are unremarkable in appearance. No acute infiltrate or consolidations are seen. No obvious pneumothorax. Postoperative sternotomy wires and clips are present. Bony structures appear grossly intact. XR/XR chest 1V IMPRESSION: No acute process seen in the chest. Electronically authenticated by: LUZ MARIA BARRIOS Date: 07/05/2023 11:43
--- NOTE | 2023-07-05 11:19 | ECG_ITS ---
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1955 Requested By: ANGELLA JAQUEZ Order Number: [id number] Reading MD: ANGELLA JAQUEZ Measurements Intervals [place] Rate: 94 P: 68 NH: 162 QRS: 56 QRSD: 82 T: 82 QT: 350 QTc: 402 Interpretive Statements 1100 Sinus rhythm 1575 with frequent ventricular premature complexes in a pattern of bigeminy [address] elevation 9140 abnormal rhythm ECG Compared to ECG 06/27/2023 19:29:26 Ventricular premature complex(es) now present ST (T wave) deviation now present Sinus arrhythmia no longer present Myocardial infarct finding no longer present Possible ischemia no longer present Electronically Signed On 07-08-2023 6:56:01 EST by ANGELLA JAQUEZ
--- NOTE | 2023-07-05 11:23 | ECG_ITS ---
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
[2023-07-05] MEDS: ASPIRIN 81 MG TAB.CHEW 162 MG PO (11:38)
--- NOTE | 2023-07-05 11:40 | ED.GENADUL1 ---
HPI - General Adult General Chief complaint: Chest Pain Stated complaint: CHEST PAIN Time Seen by Provider: 07/05/23 11:19 Source: patient and family Mode of arrival: walk-in Limitations: no limitations History of Present Illness HPI narrative: Patient is a 68-year-old male who is presenting to the Emergency Room with intermittent chest pain, midsternal chest pain/pressure this been going on for the past several weeks. Patient just had a three-vessel bypass in April 2023 at [facility] at the [place] cardiology group at [facility]. Dr Ramirez is pt Cardiothoracic surgeon at [facility]. Patient is on blood thinners; Aspirin and Plavix . Patient's is at bedside. Patient was in the Emergency Room last for similar chest pain. Patient also had a follow-up visit in the office on Saturday with Dr. Nunes. Patient said this morning he was sitting at home eating breakfast, And patient started having the midsternal pressure with no radiation. No nausea, vomiting. Patient does not believe he has a history of acid reflux or heartburn. Patient has no pain at this time. Patient is pretty adamant that he thinks this is some type of acid reflux or heartburn he feels better when he belches. I explained to the patient and family at bedside several times the esophagus since right next to the heart, and her job as a rule out the worse case scenario, the bus. This could be cardiac in etiology, this could be gastrointestinal etiology. Patient's initial EKG showed acute changes when compared to an EKG 8 days ago on June 27. A 2nd EKG was done as well. Patient's given baby aspirin. Patient is asymptomatic at this time, he currently has no chest pain, shortness of breath, nausea or vomiting. Patient is on blood thinners. Patient is anxious. . All systems are negative except as noted/marked. All systems reviewed and otherwise negative. . Nurses note and vital signs reviewed and patient is not hypoxic. General: The patient appears well and in no apparent distress. Patient is resting comfortably on cart. Patient is not toxic, lethargic, or listless Skin: Warm, dry, no pallor noted. There is no rash noted. No petechiae, purpura. Head: Normocephalic, atraumatic Eye: Normal conjunctiva, no drainage, EOMI. PERRL Ears, Nose, Mouth, and Throat: oral mucosa is moist. Nares patent. Mouth without vesicles. Cardiovascular: Regular Rate and Rhythm, no murmur, gallop, rub; No reproducible tenderness to palpation to anterior chest wall. Respiratory: Patient is in no distress, no accessory muscle use, lungs are clear to auscultation, no wheezing, rales or rhonchi Back: non-tender, no CVA tenderness bilaterally to percussion. No CT LS midline pain GI: soft, no tenderness to palpation, no masses appreciated. No rebound, guarding, or rigidity noted. No flank pain bilateral, No distention. No midepigastric tenderness to palpation. No reproducible pain. Abdomen is soft. No peritoneal signs. Musculoskeletal: Patient has full range of motion of all of the extremities, no motor, sensory, or focal neurological deficits Neurological: A&O x3, normal speech Psychiatric: Cooperative Related Data Home Medications Medication Instructions Recorded Confirmed pantoprazole 40 mg tablet,delayed 40 mg PO DAILY 03/21/23 05/06/23 release tamsulosin 0.4 mg capsule 0.4 mg PO Q24H 03/21/23 05/06/23 acetaminophen 500 mg tablet 500 mg PO Q6H PRN pain 05/06/23 05/06/23 ascorbic acid (vitamin C) 500 mg 1 g PO QAM 05/06/23 05/06/23 tablet (Vitamin C) aspirin 81 mg chewable tablet 1 tab PO QAM 05/06/23 07/05/23 atorvastatin 40 mg tablet 40 mg PO QAM 05/06/23 07/05/23 clopidogrel 75 mg tablet 75 mg PO QAM 05/06/23 07/05/23 colchicine 0.6 mg tablet 0.6 mg PO QAM 05/06/23 05/07/23 docusate sodium 100 mg capsule 100 mg PO QAM 05/06/23 05/06/23 ferrous sulfate 325 mg (65 mg 325 mg PO QAM 05/06/23 05/06/23 iron) tablet (FeroSul) metoprolol tartrate 25 mg tablet 12.5 mg PO Q12H 05/06/23 05/06/23 oxycodone 5 mg tablet 5 mg PO Q6H PRN pain 05/06/23 05/06/23 vitamin E (dl, acetate) 180 mg 180 mg PO QAM 05/06/23 05/06/23 (400 unit) capsule isosorbide mononitrate 30 mg 30 mg PO DAILY 07/05/23 07/05/23 tablet,extended release 24 hr Previous Rx's Medication Instructions Recorded furosemide 20 mg tablet (Lasix) 20 mg PO DAILY #30 tabs 05/07/23 levofloxacin 500 mg tablet 500 mg PO DAILY 10 days #10 tabs 05/07/23 Allergies Allergy/AdvReac Type Severity Reaction Status Date / Time No Known Drug Allergies Allergy Verified 03/21/23 10:21 PFSH [facility] Medical History (Updated 07/05/23 @ 12:29 by Franck Brooke MD) PVD (peripheral vascular disease) ?I73.9 - Peripheral vascular disease, unspecified (ICD-10) Hypertension ?I10 - Essential (primary) hypertension (ICD-10) CAD (coronary artery disease) ?I25.10 - Atherosclerotic heart disease of zuni coronary artery without angina pectoris (ICD-10) LLL pneumonia ?J18.9 - Pneumonia, unspecified organism (ICD-10) Acute non-ST elevation myocardial infarction (NSTEMI) ?I21.4 - Non-ST elevation (NSTEMI) myocardial infarction (ICD-10) Surgical History (Updated 05/06/23 @ 21:44 by Lesley Mike) History of open heart surgery ?Z98.890 - Other specified postprocedural states (ICD-10) Social History Within the past year, how often did you have a drink containing alcohol: never Score interpretation: A score less than 4 is consistent with normal alcohol consumption. Smoking status: Former smoker Non-prescribed substance use: denies use Exam Constitutional Vital Signs, click to edit/add: Last Vital Signs Temp 97.6 F 07/05/23 11:07 Pulse 75 07/05/23 12:50 Resp 22 07/05/23 12:50 BP 105/74 07/05/23 12:30 Pulse Ox 99 07/05/23 12:50 O2 Del Method Room Air 07/05/23 11:07 Course Vital Signs Vital signs: Vital Signs Temperature 97.6 F 07/05/23 11:07 Pulse Rate 98 H 07/05/23 11:07 Respiratory Rate 16 07/05/23 11:07 Blood Pressure 164/79 H 07/05/23 11:07 Pulse Oximetry 100 07/05/23 11:07 Oxygen Delivery Method Room Air 07/05/23 11:07 Temperature 97.6 F 07/05/23 11:07 Pulse Rate 75 07/05/23 12:50 Respiratory Rate 22 07/05/23 12:50 Blood Pressure 105/74 07/05/23 12:30 Pulse Oximetry 99 07/05/23 12:50 Oxygen Delivery Method Room Air 07/05/23 11:07 Medical Decision Making MDM Narrative Medical decision making narrative: 1140 I spoke to the food service hotel runner at the [facility], Dr Guajardo (sp?) she reviewed the EKGs, stated there were some ischemic changes, recommending starting patient on heparin drip. I accidentally called her, patient's search advertising strategist is already established at [facility]. She stated they would take the patient back up if needed, happy to help, blameless apologies given. [address] Flores, who is on-call for the [place] cardiology group, at [facility] where patient had his open heart surgery mid-April 2 months ago. I sent EKGs/pictures HIPPA compliant that he was able to review. Dr. Flores agreed there is no acute STEMI, but there are ischemic changes. Dr Flores Recommended to start patient on heparin drip and they will take the patient in transfer because they have performed a open-heart surgery in April. 1205 Dr Flores had no other recommendations besides agreeing to be in consultation, recommended transfer, and starting heparin drip. 1225 I spoke to Wolf who accepted the patient to the hospitalist staff with Dr. Flores in consultation. Dr. Colon will be accepting physician. Patient was in the Emergency Room last on June 27 for chest pain. Patient was in Dr. Nunes office this Saturday on . Patient is returning today for repeat midsternal chest pain. Patient says he feels better when he burps. Mild history of acid reflux. Patient just had three-vessel bypass done in April 2023 at [facility]. Patient's case has been discussed with cardiology, patient was given aspirin and started on a heparin drip. There are 3-4 discharges on the cardiology floor this afternoon, patient will be transferred today on the recommendation of Dr. Flores. Dr. Flores stated they will take the patient and do not send the patient to the [facility]. Patient is aware of this, and son at bedside. Son is helping clarify information to the patient. Patient will be in the hospital for the next several days, possible/probable cardiac catheter may be done as well. Education was done at bedside the patient, son and . Multiple phone calls in communication with Cloth Tearer at [facility], hospitalist at [facility], And also speaking to the interventional list at the [facility] as well about this patient and EKGs. 1330 We just obtained a bed number at [facility], we are Setting up transfer at this time. Critical care time 45 minutes exclusive from separate billable procedures that were performed. The following was considered in the determination of critical care but not limited to the level of medical decision making, intensive cardiac and/or respiratory monitoring, frequent vital sign monitoring, evaluation of laboratory studies, evaluation of radiographic studies, oxygen monitoring, and constant monitoring and speaking to family at bedside Lab Data Lab results reviewed: Yes I reviewed the patient's lab results Labs: Lab Results 07/05/23 07/05/23 Range/Units 11:20 12:00 WBC 9.7 (4.0-11.0) 10^3/uL RBC 4.84 (4.70-6.10) 10^6/uL Hgb 14.4 (14.0-18.0) g/dL Hct 43.6 (42.0-54.0) % MCV 90.1 (80.0-94.0) fL MCH 29.8 (25.9-34.0) pg MCHC 33.0 (29.9-35.2) g/dL RDW 13.5 (11.0-15.0) % Plt Count 264 (150-450) 10^3/uL MPV 9.1 L (9.5-13.5) fL Neut % (Auto) 51.7 (43.0-75.0) % Lymph % (Auto) 34.9 (20.5-60.0) % [place] % (Auto) 11.0 (1.7-12.0) % Eos % (Auto) 2.0 (0.9-7.0) % Baso % (Auto) 0.3 (0.2-2.0) % Neut # (Auto) 5.0 (1.4-6.5) 10^3/uL Lymph # (Auto) 3.4 (1.2-3.8) 10^3/uL [place] # (Auto) 1.1 H (0.3-0.8) 10^3/uL Eos # (Auto) 0.2 (0.0-0.7) 10^3/uL Baso # (Auto) 0.0 (0.0-0.1) 10^3/uL Abs Immat Gran (auto) 0.01 (0.00-0.03) 10^3/uL Imm/Tot Granulo (auto) 0.1 (0.0-0.5) % PT 10.6 (9.0-11.6) sec INR 1.00 APTT 34.5 (22.3-36.2) sec Sodium 138 (136-145) mmol/L Potassium 3.6 (3.5-5.1) mmol/L Chloride 102 (98-107) mmol/L Carbon Dioxide 25.6 (21.0-32.0) mmol/L Anion Gap 14.0 BUN 13.0 (7.0-18.0) mg/dL Creatinine 1.00 (0.70-1.30) mg/dL Est GFR ( Amer) >60 (>=60) Est GFR (Non-Af Amer) >60 (>=60) BUN/Creatinine Ratio 13.0 Glucose 128 H (74-106) mg/dL Calcium 9.4 (8.5-10.1) mg/dL Total Bilirubin 0.5 (0.2-1.0) mg/dL AST 17 (15-37) U/L ALT 19 (16-63) U/L Alkaline Phosphatase 145 H (46-116) U/L Troponin I High Sens 15.4 (4.0-76.1) pg/mL NT-Pro-B Natriuret Pep 1413.0 H* (<=900.0) pg/mL Total Protein 8.3 H (6.4-8.2) g/dL Albumin 3.5 (3.4-5.0) g/dL Globulin 4.8 g/dL Albumin/Globulin Ratio 0.7 Lipase 35.0 (16.0-77.0) U/L Urine Color Lt. yellow (YELLOW) Urine Clarity Clear (CLEAR) Urine pH 6.5 (5.0-9.0) Ur Specific [place] 1.010 (1.005-1.025) Urine Protein Negative (NEG/TRACE) mg/dL Urine Glucose (UA) Negative (NEGATIVE) mg/dL Urine Ketones Negative (NEGATIVE) mg/dL Urine Occult Blood Trace-l (NEGATIVE) Urine Nitrite Negative (NEGATIVE) Urine Bilirubin Negative (NEGATIVE) Urine Urobilinogen 0.2 (0.2-1.0) EU/dL Ur Leukocyte Esterase Negative (NEGATIVE) Urine RBC 0-2 (0-2) #/HPF Urine WBC None seen (NONE SEEN) #/HPF Ur Squamous Epith Cells Rare (NONE/RARE) #/LPF Urine Bacteria None seen (NONE SEEN) #/HPF Urine Mucus None seen (NONE SEEN) Ur Culture Indicated? No ECG Data Attestation: I personally reviewed and interpreted this ECG as follows: Interpretation: EKG #1. Normal sinus rhythm at 94 beats a minute. Normal axis deviation. QTC of 402. PVC noted. Questionable [address] elevation in the inferior leads with possible reciprocal changes. Possible new right bundle-branch block as well. This is compared to old EKG on 06/27/2023. These are acute new changes when compared to an EKG 8 days ago. EKG will be repeated. EKG #2. Normal sinus rhythm at 97 beats a minute. Normal axis deviation. PVC noted. ST elevation in the inferior leads has somewhat normalized, possible reciprocal changes noted, nonspecific ST changes. Slightly improved from the 1st EKG, but new changes when compared to 8 days ago on 06/27/2023. EKGs have been reviewed with the food service hotel runner at the [facility] Dr Willett (sp?) and also Dr. Flores from [facility] Discharge Plan Discharge Chief Complaint: Chest Pain Clinical Impression: Acute electrocardiography changes, Chest pain Patient Disposition: [facility] Time of Disposition Decision: 12:28 Discharge location: [facility], Dr Colon, search advertising strategist Dr Flores Condition: Serious
[2023-07-05 11:45] LABS: Basophils Percent Auto 0.3 % (0.2-2.0); Eosinophils Absolute Auto 0.2 10^3/uL (0.0-0.7); Hematocrit 43.6 % (42.0-54.0); Hemoglobin 14.4 g/dL (14.0-18.0); Immature Granulocytes Abs Auto 0.01 10^3/uL (0.00-0.03); Immature Granulocytes Pct Auto 0.1 % (0.0-0.5); Lymphocytes Absolute Auto 3.4 10^3/uL (1.2-3.8); Lymphocytes Percent Auto 34.9 % (20.5-60.0); Mean Corpuscular Hemoglobin 29.8 pg (25.9-34.0); Mean Corpuscular Volume 90.1 fL (80.0-94.0); Mean Platelet Volume 9.1 fL (9.5-13.5); Monocytes Absolute Auto 1.1 10^3/uL (0.3-0.8); Neutrophils Percent Auto 51.7 % (43.0-75.0); Platelet Count 264 10^3/uL (150-450); Red Blood Count 4.84 10^6/uL (4.70-6.10); Red Cell Distribution Width 13.5 % (11.0-15.0); White Blood Count 9.7 10^3/uL (4.0-11.0)
[2023-07-05 11:55] LABS: Alanine Aminotransferase 19 U/L (16-63); Albumin Globulin Ratio 0.7; Albumin Level 3.5 g/dL (3.4-5.0); Alkaline Phosphatase 145 U/L (46-116); Aspartate Amino Transferase 17 U/L (15-37); Bilirubin Total 0.5 mg/dL (0.2-1.0); Calcium 9.4 mg/dL (8.5-10.1); Carbon Dioxide 25.6 mmol/L (21.0-32.0); Chloride 102 mmol/L (98-107); Estimated GFR (African America >60 (>=60); Estimated GFR (Non-African Ame >60 (>=60); Globulin 4.8 g/dL; Glucose 128 mg/dL (74-106); Potassium 3.6 mmol/L (3.5-5.1); Sodium 138 mmol/L (136-145); Total Protein 8.3 g/dL (6.4-8.2)
[2023-07-05 12:01] LABS: Troponin I High Sensitivity 15.4 pg/mL (4.0-76.1)
[2023-07-05 12:09] LABS: Partial Thromboplastin Time 34.5 sec (22.3-36.2); Prothrombin Time 10.6 sec (9.0-11.6)
[2023-07-05 12:16] LABS: Bilirubin Urine NEGATIVE (NEGATIVE); Blood Urine TRACE-L (NEGATIVE); Clarity Urine CLEAR (CLEAR); Color Urine LT. YELLOW (YELLOW); Glucose Urine UA NEGATIVE (NEGATIVE); Ketones Urine NEGATIVE (NEGATIVE); Leukocyte Esterase Urine NEGATIVE (NEGATIVE); Nitrite Urine NEGATIVE (NEGATIVE); Protein Urine NEGATIVE (NEG/TRACE); Urobilinogen Urine 0.2 EU/dL (0.2-1.0); pH Urine 6.5 (5.0-9.0)
[2023-07-05 12:17] LABS: Urine Microscopic Indicated YES
[2023-07-05 12:30] LABS: Bacteria Urine NONE SEEN #/HPF (NONE SEEN); RBC Urine 0-2 #/HPF (0-2); WBC Urine NONE SEEN #/HPF (NONE SEEN)
[2023-07-05 12:31] LABS: Mucus Urine NONE SEEN (NONE SEEN); Squamous Epithelial Cell Urine RARE #/LPF (NONE/RARE)
[2023-07-05 12:32] LABS: Urine Culture Indicated NO
[2023-07-05] MEDS: 0.9 % SODIUM CHLORIDE 1,000 ML 1000 ML IV (12:35)
[2023-07-05] MEDS: HEPARIN SODIUM,PORCINE/D5W 25,000 UNIT/500 ML IV.SOLN 14.64 UNIT IV (12:36)
[2023-07-05] MEDS: HEPARIN SODIUM (PORCINE) 5,000 UNIT/ML VIAL 3500 UNIT SUBQ (12:36)
[2023-07-05 13:55] LABS: Troponin I High Sensitivity 143.4 pg/mL (4.0-76.1)
--- NOTE | 2023-07-05 13:59 | ECG_ITS ---
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
--- NOTE | 2023-07-05 14:02 | PC.NURSE ---
Per dr guerrero request, another EKG obtained. pt remains pain free in his chest. denies any other sx such as dizziness, SOB, etc.
== END 2023-07-05 15:00 | disposition short-term general hospital (02) ==
PROVIDERS: Emergency Provider Emergency Medicine; PCP Family Medicine
DX: R07.9 Chest pain, unspecified (principal); R94.31 Abnormal electrocardiogram [ECG] [EKG]; Z79.82 Long term (current) use of aspirin; Z79.899 Other long term (current) drug therapy; I73.9 Peripheral vascular disease, unspecified; I10 Essential (primary) hypertension; I25.10 Atherosclerotic heart disease of native coronary artery without angina pectoris; I25.2 Old myocardial infarction; Z87.01 Personal history of pneumonia (recurrent); Z98.890 Other specified postprocedural states; Z87.891 Personal history of nicotine dependence
CPT/HCPCS: 36415; 71045; 80053; 81001; 83690; 83880; 84484; 85025; 85610; 85730; 93005; 96374; 99285; J1644

== ENCOUNTER 2023-07-25 08:11 | Outpatient (OUT) | payer MEDICARE, SELFPAY ==
--- OUTSIDE RECORDS SUMMARY | 2023-07-25 08:15 | XMS_ITS | CCD ---
Author Name Unknown Address [address] [place] [address] [facility] Care Team Providers Care Coding Tech Name Role Phone Tyson Jaquez Primary Care Physician GISELE ., DR PERALES Admitting Unavailable HOY ., DR PERALES Attending Unavailable HOY ., DR PERALES Primary Care Unavailable HOY ., DR PERALES Consulting Unavailable POLICARO, GARCIA Consulting Unavailable MONICA MONDRAGON JR Admitting Unavailable MONICA MONDRAGON JR Attending Unavailable HOY ., DR PERALES Primary Care Unavailable BRANDIE RUDD Consulting Unavailable MONICA MONDRAGON JR Consulting Unavailable RICE, DR CASPER Grace Admitting Unavailable RICE, DR CASPER Grace Attending Unavailable HOY ., DR PERALES Primary Care Unavailable RICE, DR CASPER Grace Consulting Unavailable HOY ., DR PERALES Admitting Unavailable HOY ., DR PERALES Attending Unavailable HOY ., DR PERALES Primary Care Unavailable HOY ., DR PERALES Consulting Unavailable ZIEBER, DR DAVID Bond Consulting Unavailable ELIZABETH LINDSAY Attending Unavailable DAKSHAELIZABETH RIZO Attending Unavailable RICECasper Referring Unavailable RICE, Casper Grace Attending Unavailable RICECasper Admitting Unavailable RICE, Casper Grace Referring Unavailable RICECasper Attending Unavailable PATRICKDOMENIC King Attending Unavailable SHOAIB, SUSANNE Admitting Unavailable YANN VILLALBA Referring Unavailable CHAITANYA AMES Attending Unavailable CHAITANYA AMES Admitting Unavailable SAEID KIMBALL Referring Unavailable JENNA CABRERA Referring Unavailable RODGER SEXTON Referring Unavailable SHMUEL VÁSQUEZ Referring Unavailable CARRIZO, CHAITANYA Referring Unavailable CESAR GIBSON Referring Unavailable SAEID KIMBALL Referring Unavailable DOMENIC NGUYEN Referring Unavailable CARRIVERA, CHAITANYA Referring Unavailable CARRIVERA, CHAITANYA Referring Unavailable KAREY SAWANT Referring Unavailabl e JIGARSAEID MONROY Referring Unavailable CARRIZO, CHAITANYA Referring Unavailable JIGARSAEID MONROY Referring Unavailable CARRIZO, CHAITANYA Referring Unavailable PARENTEAU, SHMUEL Referring Unavailable CARRIZO, CHAITANYA Referring Unavailable KULAKOWSKI, KAREY Dhaliwal Referring Unavailabl e PIRKL, MARY Referring Unavailable PATRICK, DOMENIC Referring Unavailable PIRKL, MARY Referring Unavailable RICKJENNA BRIGGS Referring Unavailable CARRIZO, CHAITANYA Referring Unavailable CARRIZO, CHAITANYA Referring Unavailable KULAKOWSKI, KAREY Dhaliwal Referring Unavailabl e CARRIZO, CHAITANYA Referring Unavailable CARRIZO, CHAITANYA Referring Unavailable KULAKOWSKI, KAREY Dhaliwal Referring Unavailabl e PIRKL, MARY Referring Unavailable CARRIZO, CHAITANYA Attending Unavailable CARRIZO, CHAITANYA Referring Unavailable OMBALLI, JACOB Attending Unavailable PARENTEAU, SHMUEL Referring Unavailable OMBALLI, JACOB Attending Unavailable PARENTEAU, SHMUEL Attending Unavailable PERNE, JUANITA Attending Unavailable JIGAR, SAEID Attending Unavailable RICK, VALENTINA Attending Unavailable YANETH, MAYELIN Attending Unavailable KULAKOWSKI, KAREY Dhaliwal Referring Unavailabl e PATRICK, DOMENIC Referring Unavailable CARRIZO, CHAITANYA Referring Unavailable KULAKOWSKI, KAREY Dhaliwal Referring Unavailabl e CLIFFEL, CESAR Referring Unavailable RAKANZANDER Referring Unavailable CARRIZO, CHAITANYA Referring Unavailable KULAKOWSKI, KAREY Dhaliwal Referring Unavailabl e KULAKOWSKI, KAREY Dhaliwal Referring Unavailabl e KULAKOWSKI, KAREY Dhaliwal Referring Unavailabl e PATRICK, DOMENIC Attending Unavailable SHOAIB, SUSANNE Admitting Unavailable PAYRIZWANA Referring Unavailable HAY, ELINA Referring Unavailable Allergies Allergy Classification Reported Allergen(s) Allergy Type Date of Onset Reaction(s) Facility (1 source) No Known Medication Allergies; Translations: [No Known Medication Allergies] Propensity to adverse reactions (disorder) [facility] Repository Medications Current Medications Medication Drug [...] Daily, # 90 cap(s), Refills(s) 3, [id number], cm, 12/05/21 8:20:00 EDT, Height/Length [...] procedure, # 2 cap(s), Refills(s) 0, Pharmacy: [facility]/pharm[facility] #[id number], 162, cm, 12/05/21 8:20:00 EDT, Height/Length Dosing, 67.2, kg, 12/05/21 8:20:00 EDT, Weight Dosing Start Date: 12/05/21 Status: Ordered Problems Active Problems Problem Classification Problem Date Documented Da te Episodic/Chronic Abdominal hernia (1 source) Diaphragmatic hernia without obstruction or gangrene; Translations: [DIAPH HERNIA W/O OBST/GANGRENE] Onset: 07-26-2022 Episodic Acute myocardial infarction (4 sources) Non-ST elevation (NSTEMI) myocardial infarction; Translations: [Other myocardial infarction type] Onset: 04-09-2023 Chronic Chronic obstructive pulmonary disease and bronchiectasis (3 sources) Emphysema, unspecified; Translations: [Simple chronic bronchitis] Onset: 07-26-2022 Chronic Congestive heart failure; nonhypertensive (2 sources) Chronic systolic (congestive) heart failure; Translations: [Chronic systolic (congestive) heart failure] Onset: 07-18-2023 Chronic Coronary atherosclerosis and other heart disease (8 sources) Unstable angina; Translations: [Atherosclerotic heart disease of [place] coronary artery with other forms of angina pectoris] Onset: 03-21-2023 Chronic Coronary atherosclerosis and other [...] lower urinary tract symptoms] Onset: 12-05-2021 Chronic Nonspecific chest pain (2 sources) Chest pain, unspecified; Translations: [Chest pain, unspecified] Onset: 07-05-2023 Episodic Other circulatory disease (2 sources) Stricture of artery; Translations: [Stricture of artery] Onset: 04-09-2023 Chronic Other male genital disorders (5 sources) Induratio [...] [Asymptomatic microscopic hematuria] Onset: 12-05-2021 Episodic Other aftercare (2 sources) Encounter for therapeutic drug level monitoring; Translations: [Encounter for therapeutic drug level monitoring] Onset: 04-09-2023 Episodic Other diseases of kidney and ureters (2 sources) Other obstructive and reflux uropathy; Translations: [Other obstructive and reflux uropathy] Onset: 09-04-2022 Episodic Other lower respiratory disease (6 sources) Other nonspecific abnormal finding of lung field; Translations: [OTH NONSPECIFIC ABN FIND LNG FIELD] Onset: 08-04-2022 Episodic Other lower respiratory disease (2 sources) Solitary pulmonary nodule; Translations: [Solitary pulmonary nodule] Onset: 04-04-2023 Episodic Other screening for suspected conditions (not mental disorders or infectious disease) (17 sources) Raised prostate specific antigen; Translations: [Elevated prostate specific antigen [PSA]] Onset: 12-05-2021 Episodic Results Test Name Value Interpretation Reference Range Facility 37on 07-18-2023 37 Normal [facility] Follow-Upon 07-18-2023 Follow-Up Normal [facility] 30on 07-09-2023 30 Normal [facility] BASIC METABOLIC PANELon 06-18 Anion gap [Moles/Vol] 11 mmol/L Normal 7-20 [facility] Comment on above: Performed By: #### L [id number] ####[facility] ([facility])[address] [place] [address] Calcium [Mass/Vol] 9.0 mg/dL Normal 8.6-10.3 [facility] Comment on above: Performed By: #### L [id number] ####[facility] ([facility])[address] [place] [address] Chloride [Moles/Vol] 105 mmol/L Normal 98-107 [facility] Comment on above: Performed By: #### L [id number] ####[facility] ([facility])[address] [place] [address] CO2 [Moles/Vol] 22 mmol/L Normal 21-31 [facility] Comment on above: Performed By: #### L [id number] ####[facility] ([facility])[address] [place] [address] Creatinine [Mass/Vol] 0.89 mg/dL Normal 0.70-1.30 [facility] Comment on above: Performed By: #### L [id number] ####[facility] ([facility])[address] [place] [address] GLOMERULAR FILTRATION RATE ML/MIN/1.73 SQ M.PREDICTED 92.8 mL/min/1.73m*2 Normal >60.0 [facility] Comment on above: Result Comment: The [facility]???s estimated glomerular filtration rate (eGFR) will [...] of individuals. Performed By: #### L [id number] ####[facility] ([facility])[address] [place] [address] Glucose [Mass/Vol] 102 mg/dL High 70-100 [facility] Comment on above: Performed By: #### L [id number] ####[facility] ([facility])[address] [place] [address] Potassium [Moles/Vol] 3.5 mmol/L Normal 3.5-5.1 [facility] Comment on above: Performed By: #### L [id number] ####[facility] ([facility])[address] [place] [address] Sodium [Moles/Vol] 134 mmol/L Low 136-145 [facility] Comment on above: Performed By: #### L [id number] ####[facility] ([facility])[address] [place] [address] Urea nitrogen [Mass/Vol] 16 mg/dL Normal 7-25 [facility] Comment on above: Performed By: #### L [id number] ####[facility] ([facility])[address] [place] [address] UREA NITROGEN/CREATININ E (MASS RATIO) IN SER/PLAS 18.0 [facility] Comment on above: Performed By: #### L [id number] ####[facility] ([facility])[address] [place] [address] DSon 07-09-2023 DS Normal [facility] Orders Onlyon 07-09-2023 Orders Only [id number] Gui Ortiz Sr. 1955 M Date Provider Department Center 07/09/2023 MAYELIN HAMMONDS Inocencio . Family History Family history unknown: Yes [facility] 30on 07-08-2023 30 The patient is Moder ately Stable - Low risk of patient condition declining or worsening The patient's goals for the shift include comfort The clinical goals for the shift include vss Normal [facility] 30 Normal [facility] ANESon 07-08-2023 ANES [facility] ANTI-XA (HEPARIN LEVEL)on HEPARIN UNFRACTIONATED (U/ML) IN PPP BY CHROMOGENIC METHOD 0.39 IU/mL Normal 0.3-0.7 [facility] Comment on above: Order Comment: Check anti-Xa level every 6 hours while on heparin infusion, or per protocol. Result Comment: Blanca roxaban and Apixaban will interfere with the anti Xa assay used to monitor UFH and LMWH. Performed By: #### L [id number] ####[facility] ([facility])[address] [place] [address] BASIC METABOLIC PANELon 06-18 Anion gap [Moles/Vol] 11 mmol/L Normal 7-20 [facility] Comment on above: Performed By: #### L [id number] ####[facility] ([facility])[address] [place] [address] Calcium [Mass/Vol] 10.0 mg/dL Normal 8.6-10.3 [facility] Comment on above: Performed By: #### L [id number] ####[facility] ([facility] [place] [address] Chloride [Moles/Vol] 105 mmol/L Normal 98-107 [facility] Comment on above: Performed By: #### L [id number] ####[facility] ([facility])[address] [place] [address] CO2 [Moles/Vol] 26 mmol/L Normal 21-31 [facility] Comment on above: Performed By: #### L [id number] ####[facility] ([facility])[address] [place] [address] Creatinine [Mass/Vol] 1.02 mg/dL Normal 0.70-1.30 [facility] Comment on above: Performed By: #### L [id number] ####[facility] ([facility])[address] [place] [address] GLOMERULAR FILTRATION RATE ML/MIN/1.73 SQ M.PREDICTED 79.6 mL/min/1.73m*2 Normal >60.0 [facility] Comment on above: Result Comment: The [facility]???s estimated glomerular filtration rate (eGFR) will [...] of individuals. Performed By: #### L [id number] ####[facility] ([facility] [place] [address] Glucose [Mass/Vol] 112 mg/dL High 70-100 [facility] Comment on above: Performed By: #### L [id number] ####[facility] ([facility])[address] [place] [address] Potassium [Moles/Vol] 4.5 mmol/L Normal 3.5-5.1 [facility] Comment on above: Performed By: #### L [id number] ####[facility] ([facility])[address] [place] [address] Sodium [Moles/Vol] 137 mmol/L Normal 136-145 [facility] Comment on above: Performed By: #### L [id number] ####[facility] ([facility])[address] [place] [address] Urea nitrogen [Mass/Vol] 15 mg/dL Normal 7-25 [facility] Comment on above: Performed By: #### L [id number] ####[facility] ([facility] [place] [address] UREA NITROGEN/CREATININ E (MASS RATIO) IN SER/PLAS 14.7 Normal [facility] Comment on above: Performed By: #### L [id number] ####[facility] ([facility] [place] [address] CBCon 07-08-2023 Erythrocyte distribution width (RBC) [Ratio] 13.5 % Normal 11.5-15.0 [facility] Comment on above: Performed By: #### L [id number] ####[facility] ([facility] [place] [address] ERYTHROCYTE MEAN CORPUSCULAR HEMOGLOBIN CONCENTRATION (G/DL) BY AUTOMATED 33.0 g/dL Normal 32.0-35.0 [facility] Comment on above: Performed By: #### L [id number] ####[facility] ([facility] [place] [address] Hematocrit (Bld) [Volume fraction] 39.4 % Normal 39.0-55.0 [facility] Comment on above: Performed By: #### L [id number] ####[facility] ([facility])[address] [place] [address] Hemoglobin (Bld) [Mass/Vol] 13.0 g/dL Normal 13.0-17.0 [facility] Comment on above: Performed By: #### L [id number] ####[facility] ([facility])[address] [place] [address] MCH (RBC) [Entitic mass] 29.1 pg Normal 27.0-33.0 [facility] Comment on above: Performed By: #### L [id number] ####[facility] ([facility])[address] [place] [address] MCV (RBC) [Entitic vol] 88.3 fL Normal 82.0-98.0 [facility] Comment on above: Performed By: #### L [id number] ####[facility] ([facility])[address] [place] [address] PLATELETS (10*3/UL) IN BLOOD AUTOMATED COUNT 248 10*3/uL Normal 150-400 [facility] Comment on above: Performed By: #### L [id number] ####[facility] ([facility])[address] [place] [address] RBC (Bld) [#/Vol] 4.46 10*6/uL Normal 4.20-5.70 [facility] Comment on above: Performed By: #### L [id number] ####[facility] ([facility])[address] [place] [address] WBC (Bld) [#/Vol] 7.02 10*3/uL Normal 4.00-10.60 [facility] Comment on above: Performed By: #### L [id number] ####[facility] ([facility])[address] [place] [address] HPon 07-08-2023 HP H&P reviewed. The pa tient was examined and there are changes to the H&P, specifically, the L radial pulse is absent as are the distal PT and DP pulses. Normal [facility] LIPID PANELon 07-08-2023 CHOL/HDL 2.6 mg/dL Normal [facility] Comment on above: Performed By: #### L [id number] ####[facility] ([facility] [place] [address] Cholesterol [Mass/Vol] 105 mg/dL Low 120-200 [facility] Comment on above: Performed By: #### L [id number] ####[facility] ([facility])[address] [place] [address] Magnesium [Mass/Vol] 63 mg/dL Normal 40-149 [facility] Comment on above: Result Comment: TRIG LYCERIDE REFERENCE RANGE:20 YEARS AND OLDER CARDIOVASCULAR RISKLESS THAN 150 mg/dL LOW [id number] TO 199 mg/dL BORDERLINE [id number] mg/dL AND GREATER HIGH RISK Performed By: #### L [id number] ####[facility] ([facility])[address] [place] [address] Magnesium [Mass/Vol] 52 mg/dL Normal 0-160 [facility] Comment on above: Performed By: #### L [id number] ####[facility] ([facility])[address] [facility] [address] Magnesium [Mass/Vol] 40 mg/dL Normal 23-92 [facility] Comment on above: Performed By: #### L [id number] ####[facility] ([facility])[address] [facility] [address] NON HDL CHOL. (LDL+VLDL) 65 Normal [facility] Comment on above: Performed By: #### L [id number] ####[facility] ([facility])[address] [facility] [address] TOTAL VLDL-C 13 mg/dL Normal 0-40 [facility] Comment on above: Performed By: #### L [id number] ####[facility] ([facility])[address] [facility] [address] NURSNOTEon 07-08-2023 NURSNOTE Normal [facility] 30on 07-07-2023 30 Normal [facility] ANTI-XA (HEPARIN LEVEL)on HEPARIN UNFRACTIONATED (U/ML) IN PPP BY CHROMOGENIC METHOD 0.35 IU/mL Normal 0.3-0.7 [facility] Comment on above: Result Comment: Ramsey roxaban and Apixaban will interfere with the anti Xa assay used to monitor UFH and LMWH. Performed By: #### L [id number] ####[facility] ([facility])[address] [place] [address] HEPARIN UNFRACTIONATED (U/ML) IN PPP BY CHROMOGENIC METHOD 0.35 IU/mL Normal 0.3-0.7 [facility] Comment on above: Order Comment: Check anti-Xa level every 6 hours while on heparin infusion, or per protocol. Result Comment: Blanca roxaban and Apixaban will interfere with the anti Xa assay used to monitor UFH and LMWH. Performed By: #### L [id number] ####[facility] ([facility])[address] [place] [address] BASIC METABOLIC PANELon - Anion gap [Moles/Vol] 12 mmol/L Normal 7-20 [facility] Comment on above: Performed By: #### L [id number] ####[facility] ([facility])[address] [place] [address] Calcium [Mass/Vol] 9.0 mg/dL Normal 8.6-10.3 [facility] Comment on above: Performed By: #### L [id number] ####[facility] ([facility])[address] [place] [address] Chloride [Moles/Vol] 106 mmol/L Normal 98-107 [facility] Comment on above: Performed By: #### L [id number] ####[facility] ([facility] [place] [address] CO2 [Moles/Vol] 22 mmol/L Normal 21-31 [facility] Comment on above: Performed By: #### L [id number] ####[facility] ([facility] [place] [address] Creatinine [Mass/Vol] 0.79 mg/dL Normal 0.70-1.30 [facility] Comment on above: Performed By: #### L [id number] ####[facility] ([facility] [place] [address] GLOMERULAR FILTRATION RATE ML/MIN/1.73 SQ M.PREDICTED 96.2 mL/min/1.73m*2 Normal >60.0 [facility] Comment on above: Result Comment: The [facility]???s estimated glomerular filtration rate (eGFR) will [...] of individuals. Performed By: #### L [id number] ####[facility] ([facility])[address] [place] [address] Glucose [Mass/Vol] 113 mg/dL High 70-100 [facility] Comment on above: Performed By: #### L [id number] ####[facility] ([facility])[address] [place] [address] Potassium [Moles/Vol] 3.6 mmol/L Normal 3.5-5.1 [facility] Comment on above: Performed By: #### L [id number] ####[facility] ([facility])[address] [place] [address] Sodium [Moles/Vol] 136 mmol/L Normal 136-145 [facility] Comment on above: Performed By: #### L [id number] ####[facility] ([facility])[address] [place] [address] Urea nitrogen [Mass/Vol] 16 mg/dL Normal 7-25 [facility] Comment on above: Performed By: #### L [id number] ####[facility] ([facility])[address] [place] [address] UREA NITROGEN/CREATININ E (MASS RATIO) IN SER/PLAS 20.3 Normal [facility] Comment on above: Performed By: #### L [id number] ####[facility] ([facility])[address] [place] [address] 30on 07-06-2023 30 The patient is Moder ately Stable - Low risk of patient condition declining or worsening The patient's goals for the shift include comfort The clinical goals for the shift include VSS Normal [facility] 30 Normal [facility] ANTI-XA (HEPARIN LEVEL)on HEPARIN UNFRACTIONATED (U/ML) IN PPP BY CHROMOGENIC METHOD 0.34 IU/mL Normal 0.3-0.7 [facility] Comment on above: Order Comment: Check anti-Xa level every 6 hours while on heparin infusion, or per protocol. Result Comment: Blanca roxaban and Apixaban will interfere with the anti Xa assay used to monitor UFH and LMWH. Performed By: #### L [id number] ####[facility] ([facility])[address] [place] [address] HEPARIN UNFRACTIONATED (U/ML) IN PPP BY CHROMOGENIC METHOD 0.22 IU/mL Low 0.3-0.7 [facility] Comment on above: Order Comment: Check anti-Xa level every 6 hours while on heparin infusion, or per protocol. Result Comment: Blanca roxaban and Apixaban will interfere with the anti Xa assay used to monitor UFH and LMWH. Performed By: #### L [id number] ####[facility] ([facility])[address] [place] [address] HEPARIN UNFRACTIONATED (U/ML) IN PPP BY CHROMOGENIC METHOD 0.16 IU/mL Invalid Interpretation Code 0.3-0.7 [facility] Comment on above: Order Comment: Check anti-Xa level every 6 hours while on heparin infusion, or per protocol. Result Comment: Blanca roxaban and Apixaban will interfere with the anti Xa assay used to monitor UFH and LMWH. Performed By: #### L [id number] ####[facility] ([facility])[address] [place] [address] HEPARIN UNFRACTIONATED (U/ML) IN PPP BY CHROMOGENIC METHOD 0.17 IU/mL Low 0.3-0.7 [facility] Comment on above: Order Comment: Check anti-Xa level every 6 hours while on heparin infusion, or per protocol. Result Comment: Ramsey roxaban and Apixaban will interfere with the anti Xa assay used to monitor UFH and LMWH. Performed By: #### L [id number] ####[facility] ([facility])[address] [place] [address] CBCon 07-06-2023 Erythrocyte distribution width (RBC) [Ratio] 13.7 % Normal 11.5-15.0 [facility] Comment on above: Performed By: #### L [id number] ####[facility] ([facility])[address] [place] [address] ERYTHROCYTE MEAN CORPUSCULAR HEMOGLOBIN CONCENTRATION (G/DL) BY AUTOMATED 34.3 g/dL Normal 32.0-35.0 [facility] Comment on above: Performed By: #### L [id number] ####[facility] ([facility])[address] [place] [address] Hematocrit (Bld) [Volume fraction] 38.8 % Low 39.0-55.0 [facility] Comment on above: Performed By: #### L [id number] ####[facility] ([facility])[address] [place] [address] Hemoglobin (Bld) [Mass/Vol] 13.3 g/dL Normal 13.0-17.0 [facility] Comment on above: Performed By: #### L [id number] ####[facility] ([facility])[address] [place] [address] MCH (RBC) [Entitic mass] 29.6 pg Normal 27.0-33.0 [facility] Comment on above: Performed By: #### L [id number] ####[facility] ([facility])[address] [place] [address] MCV (RBC) [Entitic vol] 86.4 fL Normal 82.0-98.0 [facility] Comment on above: Performed By: #### L [id number] ####[facility] ([facility])[address] [place] [address] PLATELETS (10*3/UL) IN BLOOD AUTOMATED COUNT 242 10*3/uL Normal 150-400 [facility] Comment on above: Performed By: #### L [id number] ####[facility] ([facility])[address] [place] [address] RBC (Bld) [#/Vol] 4.49 10*6/uL Normal 4.20-5.70 [facility] Comment on above: Performed By: #### L [id number] ####[facility] ([facility])[address] [place] [address] WBC (Bld) [#/Vol] 6.59 10*3/uL Normal 4.00-10.60 [facility] Comment on above: Performed By: #### L [id number] ####[facility] ([facility])[address] [place] [address] CONSULTon 07-06-2023 CONSULT Normal [facility] HPon 07-06-2023 HP Normal [facility] TROPONIN Ion 07-06-2023 Troponin I.cardiac [Mass/Vol] 0.03 ng/mL Normal 0.00-0.04 [facility] Comment on above: Performed By: #### L [id number] ####[facility] ([facility])[address] [place] [address] Troponin I.cardiac [Mass/Vol] 0.05 ng/mL High 0.00-0.04 [facility] Comment on above: Performed By: #### L [id number] ####[facility] ([facility])[address] [place] [address] Troponin I.cardiac [Mass/Vol] 0.06 ng/mL High 0.00-0.04 [facility] Comment on above: Performed By: #### L [id number] ####[facility] ([facility])[address] [place] [address] Troponin I.cardiac [Mass/Vol] 0.12 ng/mL Critically high 0.00-0.04 [facility] Comment on above: Result Comment: M-ME EVIOUS CRITICAL RESULTPrevious result verified on 07/05/20232224 on specimen/case [id number] called with component Troponin I for procedure Troponin I with value 0.23 ng/mL. Performed By: #### L [id number] ####[facility] ([facility])[address] [place] [address] 30on 07-05-2023 30 Normal [facility] APTTon 07-05-2023 ACTIVATED PARTIAL THROMBOPLASTIN TIME IN PPP BY COAGULATION ASSAY 36.3 Seconds High 25.0-35.0 [facility] Comment on above: Order Comment: Basel ine aPTT before initiating heparin infusion. Result Comment: Clin ical significance of the APTT is questionable in the presence of heparin. Performed By: #### L [id number] ####[facility] ([facility])[address] [place] [address] B-TYPE NATRIURETIC PEPTIDEon 07-05-2023 Natriuretic peptide B (Bld) [Mass/Vol] 346 pg/mL High 0-100 [facility] Comment on above: Performed By: #### L [id number] ####[facility] ([facility])[address] [place] [address] CBC WITH AUTO DIFFERENTIALon 07-05-2023 Basophils (Bld) [#/Vol] 0.03 10*3/uL Normal 0.00-0.20 [facility] Comment on above: Performed By: #### L [id number] ####[facility] ([facility])[address] [place] [address] Basophils/100 WBC (Bld) 0.5 % Normal 0.0-1.0 [facility] Comment on above: Performed By: #### L [id number] ####[facility] ([facility])[address] [place] [address] Eosinophils (Bld) [#/Vol] 0.15 10*3/uL Normal 0.00-0.50 [facility] Comment on above: Performed By: #### L [id number] ####[facility] ([facility])[address] [place] [address] Eosinophils/100 WBC (Bld) 2.3 % Normal 0.0-6.0 [facility] Comment on above: Performed By: #### L [id number] ####[facility] ([facility])[address] [place] [address] Erythrocyte distribution width (RBC) [Ratio] 13.6 % Normal 11.5-15.0 [facility] Comment on above: Performed By: #### L [id number] ####[facility] ([facility])[address] [place] [address] ERYTHROCYTE MEAN CORPUSCULAR HEMOGLOBIN CONCENTRATION (G/DL) BY AUTOMATED 34.1 g/dL Normal 32.0-35.0 [facility] Comment on above: Performed By: #### L [id number] ####[facility] ([facility])[address] [place] [address] Hematocrit (Bld) [Volume fraction] 41.7 % Normal 39.0-55.0 [facility] Comment on above: Performed By: #### L [id number] ####[facility] ([facility])[address] [place] [address] Hemoglobin (Bld) [Mass/Vol] 14.2 g/dL Normal 13.0-17.0 [facility] Comment on above: Performed By: #### L [id number] ####[facility] ([facility])[address] [place] [address] Immature granulocytes (Bld) [#/Vol] 0.01 10*3/uL Normal 0.00-0.20 [facility] Comment on above: Performed By: #### L [id number] ####[facility] ([facility])[address] [place] [address] Immature granulocytes/100 WBC (Bld) 0.2 % Normal 0.0-1.0 [facility] Comment on above: Performed By: #### L [id number] ####[facility] ([facility])[address] [place] [address] Lymphocytes (Bld) [#/Vol] 2.12 10*3/uL Normal 1.20-4.00 [facility] Comment on above: Performed By: #### L [id number] ####[facility] ([facility])[address] [place] [address] Lymphocytes/100 WBC (Bld) 32.7 % Normal 20.0-45.0 [facility] Comment on above: Performed By: #### L [id number] ####[facility] ([facility])[address] [place] [address] MCH (RBC) [Entitic mass] 29.3 pg Normal 27.0-33.0 [facility] Comment on above: Performed By: #### L [id number] ####[facility] ([facility])[address] [place] [address] MCV (RBC) [Entitic vol] 86.2 fL Normal 82.0-98.0 [facility] Comment on above: Performed By: #### L [id number] ####[facility] ([facility])[address] [place] [address] Monocytes (Bld) [#/Vol] 0.64 10*3/uL Normal 0.10-1.00 [facility] Comment on above: Performed By: #### L [id number] ####[facility] ([facility])[address] [place] [address] Monocytes/100 WBC (Bld) 9.9 % Normal 5.0-12.0 [facility] Comment on above: Performed By: #### L [id number] ####[facility] ([facility])[address] [place] [address] Neutrophils (Bld) [#/Vol] 3.54 10*3/uL Normal 1.60-7.60 [facility] Comment on above: Performed By: #### L [id number] ####[facility] ([facility])[address] [place] [address] Neutrophils/100 WBC (Bld) 54.4 % Normal 40.0-72.0 [facility] Comment on above: Performed By: #### L [id number] ####[facility] ([facility])[address] [place] [address] NRBC (PER 100 WBCS) BY AUTOMATED COUNT 0.0 % Normal 0 [facility] Comment on above: Performed By: #### L [id number] ####[facility] ([facility])[address] [place] [address] PLATELETS (10*3/UL) IN BLOOD AUTOMATED COUNT 277 10*3/uL Normal 150-400 [facility] Comment on above: Performed By: #### L [id number] ####[facility] ([facility])[address] [place] [address] RBC (Bld) [#/Vol] 4.84 10*6/uL Normal 4.20-5.70 [facility] Comment on above: Performed By: #### L [id number] ####[facility] ([facility])[address], [place] [address] WBC (Bld) [#/Vol] 6.49 10*3/uL Normal 4.00-10.60 [facility] Comment on above: Performed By: #### L [id number] ####[facility] ([facility])[address] [place] [address] COMPREHENSIVE METABOLIC PANE Roddy 07-05-2023 Albumin [Mass/Vol] 3.9 g/dL Normal 3.5-5.7 [facility] Comment on above: Performed By: #### L [id number] ####[facility] ([facility] [place] [address] ALP [Catalytic activity/Vol] 127 U/L High 34-104 [facility] Comment on above: Performed By: #### L [id number] ####[facility] ([facility] [place] [address] ALT [Catalytic activity/Vol] 10 U/L Normal 7-52 [facility] Comment on above: Performed By: #### L [id number] ####[facility] ([facility])[address] [place] [address] Anion gap [Moles/Vol] 14 mmol/L Normal 7-20 [facility] Comment on above: Performed By: #### L [id number] ####[facility] ([facility])[address] [place] [address] AST [Catalytic activity/Vol] 15 U/L Normal 13-39 [facility] Comment on above: Performed By: #### L [id number] ####[facility] ([facility])[address] [place] [address] Bilirubin [Mass/Vol] 0.4 mg/dL Normal 0.3-1.0 [facility] Comment on above: Performed By: #### L [id number] ####[facility] ([facility])[address] [place] [address] Calcium [Mass/Vol] 9.4 mg/dL Normal 8.6-10.3 [facility] Comment on above: Performed By: #### L [id number] ####[facility] ([facility])[address] [place] [address] Chloride [Moles/Vol] 106 mmol/L Normal 98-107 [facility] Comment on above: Performed By: #### L [id number] ####[facility] ([facility])[address] [place] [address] CO2 [Moles/Vol] 23 mmol/L Normal 21-31 [facility] Comment on above: Performed By: #### L [id number] ####[facility] ([facility])[address] [place] [address] Creatinine [Mass/Vol] 0.78 mg/dL Normal 0.70-1.30 [facility] Comment on above: Performed By: #### L [id number] ####[facility] ([facility])[address] [place] [address] GLOMERULAR FILTRATION RATE ML/MIN/1.73 SQ M.PREDICTED 96.5 mL/min/1.73m*2 Normal >60.0 [facility] Comment on above: Result Comment: The [facility]???s estimated glomerular filtration rate (eGFR) will [...] of individuals. Performed By: #### L [id number] ####[facility] ([facility])[address] [place] [address] Glucose [Mass/Vol] 114 mg/dL High 70-100 [facility] Comment on above: Performed By: #### L [id number] ####[facility] ([facility])[address] [place] [address] Potassium [Moles/Vol] 3.5 mmol/L Normal 3.5-5.1 [facility] Comment on above: Performed By: #### L [id number] ####[facility] ([facility])[address] [place] [address] Protein [Mass/Vol] 7.5 g/dL Normal 6.0-8.3 [facility] Comment on above: Performed By: #### L [id number] ####[facility] ([facility])[address] [place] [address] Sodium [Moles/Vol] 139 mmol/L Normal 136-145 [facility] Comment on above: Performed By: #### L [id number] ####[facility] ([facility])[address] [place] [address] Urea nitrogen [Mass/Vol] 13 mg/dL Normal 7-25 [facility] Comment on above: Performed By: #### L [id number] ####[facility] ([facility])[address] [place] [address] UREA NITROGEN/CREATININ E (MASS RATIO) IN SER/PLAS 16.7 Normal [facility] Comment on above: Performed By: #### L [id number] ####[facility] ([facility])[address] [place] [address] HPon 07-05-2023 HP Normal [facility] MAGNESIUMon 07-05-2023 Magnesium [Mass/Vol] 1.8 mg/dL Low 1.9-2.7 [facility] Comment on above: Performed By: #### L [id number] ####[facility] ([facility])[address] [place] [address] NURSNOTEon 07-05-2023 NURSNOTE Lead RN called admit amalia MONTES DE OCA, no new orders as of this time. [employer] Clerk verified diet order, pt placing order for dinner. Will continue to monitor Normal [facility] PHOSPHORUSon 07-05-2023 Magnesium [Mass/Vol] 3.5 mg/dL Normal 2.5-5.0 [facility] Comment on above: Performed By: #### L [id number] ####[facility] ([facility])[address] [address] POCT GLUCOSE METER UNSOLICIT ED RESULTSon 07-05-2023 Glucose [Mass/Vol] 163 mg/dL High 70-105 [facility] Comment on above: Order Comment: Waive d Testing in the ED is performed under the ED CLIA certificate #[id number]. Result Comment: cgra [email or web address] Performed By: #### L [id number] ####[facility] ([facility])[address] [place] [address] PROTIME-INRon 07-05-2023 INR IN PPP BY COAGULATION ASSAY 1.07 Normal 0.90-1.10 [facility] Comment on above: Result Comment: ACCC P [...] CHEST 1995;[id number]. Performed By: #### L [id number] ####[facility] ([facility])[address] [place] [address] PROTHROMBIN TIME (PT) IN PPP BY COAGULATION ASSAY 13.9 Seconds Normal 12.3-14.8 [facility] Comment on above: Performed By: #### L [id number] ####[facility] ([facility])[address] [place] [address] TROPONIN Ion 07-05-2023 Troponin I.cardiac [Mass/Vol] 0.23 ng/mL Critically high 0.00-0.04 [facility] Comment on above: Result Comment: M-CR ITICAL RESULT(S) REVIEWED, CALLED TO AND READ BACK BY MARY SIMMONS RN AT 2224M-TROPONIN INITIAL CRITICAL HIGH; RESPUN AND RETESTED Performed By: #### L [id number] ####[facility] ([facility])[address] [place] [address] Orders Onlyon 07-02-2023 Orders Only [id number] Gui Ortiz Sr. 1955 M Date Provider Department Center 07/02/2023 ALLEN HUA ONC DCC Family History Family history unknown: Yes Normal [facility] 29on 05-16-2023 29 Addended by: PASCUAL VELARDE on: 05/16/2023 03:51 PM Modules accepted: Orders Normal [facility] 29 Addended by: PASCUAL VELARDE on: 05/16/2023 03:50 PM Modules accepted: Orders Normal [facility] Follow-Upon 05-16-2023 Follow-Up Normal [facility] 36on 05-03-2023 36 Normal [facility] Telephoneon 05-03-2023 Telephone [phone] Gui Ortiz 1955 M Date Provider Department Center 05/03/2023 SAEID MARISCAL [facility] [place] [facility] Family History Family history unknown: Yes Normal [facility] 36on 05-02-2023 36 Normal [facility] 30on 05-01-2023 30 Normal [facility] 30 Normal [facility] BASIC METABOLIC PANELon 04-17 Anion gap [Moles/Vol] 11 mmol/L Normal 7-20 [facility] Comment on above: Performed By: #### L [id number] ####[facility] ([facility])[address] [place] [address] Calcium [Mass/Vol] 8.4 mg/dL Low 8.6-10.3 [facility] Comment on above: Performed By: #### L [id number] ####[facility] ([facility])[address] [place] [address] Chloride [Moles/Vol] 109 mmol/L High 98-107 [facility] Comment on above: Performed By: #### L [id number] ####[facility] ([facility])[address] [place] [address] CO2 [Moles/Vol] 22 mmol/L Normal 21-31 [facility] Comment on above: Performed By: #### L [id number] ####[facility] ([facility])[address] [place] [address] Creatinine [Mass/Vol] 0.62 mg/dL Low 0.70-1.30 [facility] Comment on above: Performed By: #### L [id number] ####[facility] ([facility])[address] [place] [address] GLOMERULAR FILTRATION RATE ML/MIN/1.73 SQ M.PREDICTED 103.5 mL/min/1.73m*2 Normal >60.0 [facility] Comment on above: Result Comment: The [facility]???s estimated glomerular filtration rate (eGFR) will [...] of individuals. Performed By: #### L [id number] ####[facility] ([facility])[address] [place] [address] Glucose [Mass/Vol] 98 mg/dL Normal 70-100 [facility] Comment on above: Performed By: #### L [id number] ####[facility] ([facility])[address] [place] [address] Potassium [Moles/Vol] 3.7 mmol/L Normal 3.5-5.1 [facility] Comment on above: Performed By: #### L [id number] ####[facility] ([facility])[address] [place] [address] Sodium [Moles/Vol] 138 mmol/L Normal 136-145 [facility] Comment on above: Performed By: #### L [id number] ####[facility] ([facility])[address] [place] [address] Urea nitrogen [Mass/Vol] 12 mg/dL Normal 7-25 [facility] Comment on above: Performed By: #### L [id number] ####[facility] ([facility])[address] [place] [address] UREA NITROGEN/CREATININ E (MASS RATIO) IN SER/PLAS 19.4 Normal [facility] Comment on above: Performed By: #### L [id number] ####[facility] ([facility])[address] [place] [address] CBCon 05-01-2023 Erythrocyte distribution width (RBC) [Ratio] 14.5 % Normal 11.5-15.0 [facility] Comment on above: Performed By: #### L [id number] ####[facility] ([facility])[address] [address] ERYTHROCYTE MEAN CORPUSCULAR HEMOGLOBIN CONCENTRATION (G/DL) BY AUTOMATED 33.2 g/dL Normal 32.0-35.0 [facility] Comment on above: Performed By: #### L [id number] ####[facility] ([facility])[address] [place] [address] Hematocrit (Bld) [Volume fraction] 27.4 % Low 39.0-55.0 [facility] Comment on above: Performed By: #### L [id number] ####[facility] ([facility])[address] [place] [address] Hemoglobin (Bld) [Mass/Vol] 9.1 g/dL Low 13.0-17.0 [facility] Comment on above: Performed By: #### L [id number] ####[facility] ([facility])[address] [place] [address] MCH (RBC) [Entitic mass] 30.7 pg Normal 27.0-33.0 [facility] Comment on above: Performed By: #### L [id number] ####[facility] ([facility] [place] [address] MCV (RBC) [Entitic vol] 92.6 fL Normal 82.0-98.0 [facility] Comment on above: Performed By: #### L [id number] ####[facility] ([facility] [place] [address] PLATELETS (10*3/UL) IN BLOOD AUTOMATED COUNT 276 10*3/uL Normal 150-400 [facility] Comment on above: Performed By: #### L [id number] ####[facility] ([facility] [place] [address] RBC (Bld) [#/Vol] 2.96 10*6/uL Low 4.20-5.70 [facility] Comment on above: Performed By: #### L [id number] ####[facility] ([facility])[address] [place] [address] WBC (Bld) [#/Vol] 6.87 10*3/uL Normal 4.00-10.60 [facility] Comment on above: Performed By: #### L [id number] ####[facility] ([facility])[address] [place] [address] DSon 05-01-2023 DS Normal [facility] MAGNESIUMon 05-01-2023 Magnesium [Mass/Vol] 1.7 mg/dL Low 1.9-2.7 [facility] Comment on above: Performed By: #### L [id number] ####[facility] ([facility])[address] [place] [address] NURSNOTEon 05-01-2023 NURSNOTE Normal [facility] NURSNOTE Normal [facility] PHOSPHORUSon 05-01-2023 Magnesium [Mass/Vol] 3.8 mg/dL Normal 2.5-5.0 [facility] Comment on above: Performed By: #### L [id number] ####[facility] ([facility])[address] [place] [address] POCT GLUCOSE METER UNSOLICIT ED RESULTSon 05-01-2023 Glucose [Mass/Vol] 116 mg/dL High 70-105 [facility] Comment on above: Order Comment: Waive d Testing in the ED is performed under the ED CLIA certificate #[id number]. Result Comment: [email or web address] Performed By: #### L [id number] ####[facility] ([facility])[address] [place] [address] Glucose [Mass/Vol] 115 mg/dL High 70-105 [facility] Comment on above: Order Comment: Waive d Testing in the ED is performed under the ED CLIA certificate #[id number]. Result Comment: [email or web address] Performed By: #### L [id number] ####[facility] ([facility])[address] [place] [address] 30on 04-30-2023 30 Normal [facility] 30 Normal [facility] 30 Normal [facility] BASIC METABOLIC PANELon 04-17 Anion gap [Moles/Vol] 12 mmol/L Normal 7-20 [facility] Comment on above: Performed By: #### L [id number] ####[facility] ([facility])[address] [place] [address] Calcium [Mass/Vol] 8.3 mg/dL Low 8.6-10.3 [facility] Comment on above: Performed By: #### L [id number] ####[facility] ([facility])[address] [place] [address] Chloride [Moles/Vol] 109 mmol/L High 98-107 [facility] Comment on above: Performed By: #### L [id number] ####[facility] ([facility])[address] [place] [address] CO2 [Moles/Vol] 21 mmol/L Normal 21-31 [facility] Comment on above: Performed By: #### L [id number] ####[facility] ([facility])[address] [place] [address] Creatinine [Mass/Vol] 0.70 mg/dL Normal 0.70-1.30 [facility] Comment on above: Performed By: #### L [id number] ####[facility] ([facility])[address] [place] [address] GLOMERULAR FILTRATION RATE ML/MIN/1.73 SQ M.PREDICTED 99.7 mL/min/1.73m*2 Normal >60.0 [facility] Comment on above: Result Comment: The [facility]???s estimated glomerular filtration rate (eGFR) will [...] of individuals. Performed By: #### L [id number] ####[facility] ([facility])[address] [place] [address] Glucose [Mass/Vol] 104 mg/dL High 70-100 [facility] Comment on above: Performed By: #### L [id number] ####[facility] ([facility])[address] [place] [address] Potassium [Moles/Vol] 3.7 mmol/L Normal 3.5-5.1 [facility] Comment on above: Performed By: #### L [id number] ####[facility] ([facility])[address] [place] [address] Sodium [Moles/Vol] 138 mmol/L Normal 136-145 [facility] Comment on above: Performed By: #### L [id number] ####[facility] ([facility])[address] [place] [address] Urea nitrogen [Mass/Vol] 15 mg/dL Normal 7-25 [facility] Comment on above: Performed By: #### L [id number] ####[facility] ([facility])[address] [place] [address] UREA NITROGEN/CREATININ E (MASS RATIO) IN SER/PLAS 21.4 Normal [facility] Comment on above: Performed By: #### L [id number] ####[facility] ([facility])[address] [place] [address] CBCon 04-30-2023 Erythrocyte distribution width (RBC) [Ratio] 13.8 % Normal 11.5-15.0 [facility] Comment on above: Performed By: #### L [id number] ####[facility] ([facility])[address] [place] [address] ERYTHROCYTE MEAN CORPUSCULAR HEMOGLOBIN CONCENTRATION (G/DL) BY AUTOMATED 32.6 g/dL Normal 32.0-35.0 [facility] Comment on above: Performed By: #### L [id number] ####[facility] ([facility])[address] [address] Hematocrit (Bld) [Volume fraction] 27.3 % Low 39.0-55.0 [facility] Comment on above: Performed By: #### L [id number] ####[facility] ([facility])[address] [address] Hemoglobin (Bld) [Mass/Vol] 8.9 g/dL Low 13.0-17.0 [facility] Comment on above: Performed By: #### L [id number] ####[facility] ([facility])[address] [place] [address] MCH (RBC) [Entitic mass] 30.4 pg Normal 27.0-33.0 [facility] Comment on above: Performed By: #### L [id number] ####[facility] ([facility]ER)[address] [place] [address] MCV (RBC) [Entitic vol] 93.2 fL Normal 82.0-98.0 [facility] Comment on above: Performed By: #### L [id number] ####[facility] ([facility]ER)[address] [place] [address] PLATELETS (10*3/UL) IN BLOOD AUTOMATED COUNT 219 10*3/uL Normal 150-400 [facility] Comment on above: Performed By: #### L [id number] ####[facility] (BEAKER)[address] [place] [address] RBC (Bld) [#/Vol] 2.93 10*6/uL Low 4.20-5.70 [facility] Comment on above: Performed By: #### L [id number] ####[facility] ([facility])[address] [place] [address] WBC (Bld) [#/Vol] 6.80 10*3/uL Normal 4.00-10.60 [facility] Comment on above: Performed By: #### L [id number] ####[facility] ([facility])[address] [place] [address] MAGNESIUMon 04-30-2023 Magnesium [Mass/Vol] 1.7 mg/dL Low 1.9-2.7 [facility] Comment on above: Performed By: #### L [id number] ####[facility] ([facility])[address] [place] [address] PHOSPHORUSon 04-30-2023 Magnesium [Mass/Vol] 4.0 mg/dL Normal 2.5-5.0 [facility] Comment on above: Performed By: #### L [id number] ####[facility] ([facility])[address] [place] [address] POCT GLUCOSE METER UNSOLICIT ED RESULTSon 04-30-2023 Glucose [Mass/Vol] 123 mg/dL High 70-105 [facility] Comment on above: Order Comment: Waive d Testing in the ED is performed under the ED CLIA certificate #[id number]. Result Comment: [email or web address] Performed By: #### L [id number] ####[facility] ([facility])[address] [place] [address] Glucose [Mass/Vol] 138 mg/dL High 70-105 [facility] Comment on above: Order Comment: Waive d Testing in the ED is performed under the ED CLIA certificate #[id number]. Result Comment: [email or web address] Performed By: #### L [id number] ####[facility] ([facility])[address] [place] [address] 30on 04-29-2023 30 Normal [facility] 30 Normal [facility] 30 Normal [facility] BASIC METABOLIC PANELon 11- Anion gap [Moles/Vol] 11 mmol/L Normal 7-20 [facility] Comment on above: Performed By: #### L [id number] ####[facility] ([facility] [place] [address] Calcium [Mass/Vol] 8.4 mg/dL Low 8.6-10.3 [facility] Comment on above: Performed By: #### L [id number] ####[facility] ([facility] [place] [address] Chloride [Moles/Vol] 109 mmol/L High 98-107 [facility] Comment on above: Performed By: #### L [id number] ####[facility] ([facility])[address] [place] [address] CO2 [Moles/Vol] 20 mmol/L Low 21-31 [facility] Comment on above: Performed By: #### L [id number] ####[facility] ([facility])[address] [place] [address] Creatinine [Mass/Vol] 0.68 mg/dL Low 0.70-1.30 [facility] Comment on above: Performed By: #### L [id number] ####[facility] ([facility])[address] [place] [address] GLOMERULAR FILTRATION RATE ML/MIN/1.73 SQ M.PREDICTED 100.6 mL/min/1.73m*2 Normal >60.0 [facility] Comment on above: Result Comment: The [facility]???s estimated glomerular filtration rate (eGFR) will [...] of individuals. Performed By: #### L [id number] ####[facility] ([facility] [place] [address] Glucose [Mass/Vol] 100 mg/dL Normal 70-100 [facility] Comment on above: Performed By: #### L [id number] ####[facility] ([facility] [place] [address] Potassium [Moles/Vol] 3.8 mmol/L Normal 3.5-5.1 [facility] Comment on above: Performed By: #### L [id number] ####[facility] ([facility])[address] [place] [address] Sodium [Moles/Vol] 136 mmol/L Normal 136-145 [facility] Comment on above: Performed By: #### L [id number] ####[facility] ([facility])[address] [place] [address] Urea nitrogen [Mass/Vol] 18 mg/dL Normal 7-25 [facility] Comment on above: Performed By: #### L [id number] ####[facility] ([facility])[address] [address] UREA NITROGEN/CREATININ E (MASS RATIO) IN SER/PLAS 26.5 Normal [facility] Comment on above: Performed By: #### L [id number] ####[facility] ([facility])[address] [place] [address] CBCon 04-29-2023 Erythrocyte distribution width (RBC) [Ratio] 13.6 % Normal 11.5-15.0 [facility] Comment on above: Performed By: #### L [id number] ####[facility] ([facility])[address] [address] ERYTHROCYTE MEAN CORPUSCULAR HEMOGLOBIN CONCENTRATION (G/DL) BY AUTOMATED 33.7 g/dL Normal 32.0-35.0 [facility] Comment on above: Performed By: #### L [id number] ####[facility] ([facility] [place] [address] Hematocrit (Bld) [Volume fraction] 27.0 % Low 39.0-55.0 [facility] Comment on above: Performed By: #### L [id number] ####[facility] ([facility] [place] [address] Hemoglobin (Bld) [Mass/Vol] 9.1 g/dL Low 13.0-17.0 [facility] Comment on above: Performed By: #### L [id number] ####[facility] ([facility])[address] [address] MCH (RBC) [Entitic mass] 30.4 pg Normal 27.0-33.0 [facility] Comment on above: Performed By: #### L [id number] ####[facility] ([facility])[address] [place] [address] MCV (RBC) [Entitic vol] 90.3 fL Normal 82.0-98.0 [facility] Comment on above: Performed By: #### L [id number] ####[facility] ([facility])[address] [place] [address] PLATELETS (10*3/UL) IN BLOOD AUTOMATED COUNT 188 10*3/uL Normal 150-400 [facility] Comment on above: Performed By: #### L [id number] ####[facility] ([facility])[address] [place] [address] RBC (Bld) [#/Vol] 2.99 10*6/uL Low 4.20-5.70 [facility] Comment on above: Performed By: #### L [id number] ####[facility] ([facility])[place] [address] WBC (Bld) [#/Vol] 7.24 10*3/uL Normal 4.00-10.60 [facility] Comment on above: Performed By: #### L [id number] ####[facility] ([facility])[address] [place] [address] CONSULTon 04-29-2023 CONSULT Normal [facility] MAGNESIUMon 04-29-2023 Magnesium [Mass/Vol] 1.7 mg/dL Low 1.9-2.7 [facility] Comment on above: Performed By: #### L [id number] ####[facility] ([facility])[address] [place] [address] PHOSPHORUSon 04-29-2023 Magnesium [Mass/Vol] 3.9 mg/dL Normal 2.5-5.0 [facility] Comment on above: Performed By: #### L [id number] ####[facility] ([facility])[address] [place] [address] POCT GLUCOSE METER UNSOLICIT ED RESULTSon 04-29-2023 Glucose [Mass/Vol] 111 mg/dL High 70-105 [facility] Comment on above: Order Comment: Waive d Testing in the ED is performed under the ED CLIA certificate #[id number]. Result Comment: [email or web address] Performed By: #### L [id number] ####[facility] ([facility])[address] [place] [address] Glucose [Mass/Vol] 133 mg/dL High 70-105 [facility] Comment on above: Order Comment: Waive d Testing in the ED is performed under the ED CLIA certificate #[id number]. Result Comment: [email or web address] shea Performed By: #### L [id number] ####[facility] ([facility])[address] [place] [address] Glucose [Mass/Vol] 128 mg/dL High 70-105 [facility] Comment on above: Order Comment: Waive d Testing in the ED is performed under the ED CLIA certificate #[id number]. Result Comment: [email or web address] shea Performed By: #### L [id number] ####[facility] ([facility])[address] [place] [address] 30on 04-28-2023 30 Normal [facility] BASIC METABOLIC PANELon 04-17 Anion gap [Moles/Vol] 10 mmol/L Normal 7-20 [facility] Comment on above: Performed By: #### L [id number] ####[facility] ([facility])[address] [place] [address] Calcium [Mass/Vol] 8.1 mg/dL Low 8.6-10.3 [facility] Comment on above: Performed By: #### L [id number] ####[facility] ([facility])[address] [place] [address] Chloride [Moles/Vol] 109 mmol/L High 98-107 [facility] Comment on above: Performed By: #### L [id number] ####[facility] ([facility])[address] [place] [address] CO2 [Moles/Vol] 22 mmol/L Normal 21-31 [facility] Comment on above: Performed By: #### L [id number] ####[facility] ([facility])[address] [place] [address] Creatinine [Mass/Vol] 0.62 mg/dL Low 0.70-1.30 [facility] Comment on above: Performed By: #### L [id number] ####[facility] ([facility])[address] [place] [address] GLOMERULAR FILTRATION RATE ML/MIN/1.73 SQ M.PREDICTED 103.5 mL/min/1.73m*2 Normal >60.0 [facility] Comment on above: Result Comment: The [facility]???s estimated glomerular filtration rate (eGFR) will [...] of individuals. Performed By: #### L [id number] ####[facility] ([facility])[address] [place] [address] Glucose [Mass/Vol] 102 mg/dL High 70-100 [facility] Comment on above: Performed By: #### L [id number] ####[facility] ([facility])[address] [place] [address] Potassium [Moles/Vol] 3.4 mmol/L Low 3.5-5.1 [facility] Comment on above: Performed By: #### L [id number] ####[facility] ([facility])[address] [place] [address] Sodium [Moles/Vol] 138 mmol/L Normal 136-145 [facility] Comment on above: Performed By: #### L [id number] ####[facility] ([facility])[address] [place] [address] Urea nitrogen [Mass/Vol] 22 mg/dL Normal 7-25 [facility] Comment on above: Performed By: #### L [id number] ####[facility] ([facility])[address] [place] [address] UREA NITROGEN/CREATININ E (MASS RATIO) IN SER/PLAS 35.5 Normal [facility] Comment on above: Performed By: #### L [id number] ####[facility] ([facility])[address] [place] [address] CBC WITH AUTO DIFFERENTIALon 04-28-2023 Basophils (Bld) [#/Vol] 0.02 10*3/uL Normal 0.00-0.20 [facility] Comment on above: Performed By: #### L [id number] ####[facility] ([facility])[address] [place] [address] Basophils/100 WBC (Bld) 0.2 % Normal 0.0-1.0 [facility] Comment on above: Performed By: #### L [id number] ####[facility] ([facility])[address] [place] [address] Eosinophils (Bld) [#/Vol] 0.09 10*3/uL Normal 0.00-0.50 [facility] Comment on above: Performed By: #### L [id number] ####[facility] ([facility] [place] [address] Eosinophils/100 WBC (Bld) 1.1 % Normal 0.0-6.0 [facility] Comment on above: Performed By: #### L [id number] ####[facility] ([facility])[address] [place] [address] Erythrocyte distribution width (RBC) [Ratio] 13.6 % Normal 11.5-15.0 [facility] Comment on above: Performed By: #### L [id number] ####[facility] ([facility])[address] [place] [address] ERYTHROCYTE MEAN CORPUSCULAR HEMOGLOBIN CONCENTRATION (G/DL) BY AUTOMATED 33.1 g/dL Normal 32.0-35.0 [facility] Comment on above: Performed By: #### L [id number] ####[facility] ([facility])[address] [place] [address] Hematocrit (Bld) [Volume fraction] 32.3 % Low 39.0-55.0 [facility] Comment on above: Performed By: #### L [id number] ####[facility] ([facility])[address] [place] [address] Hemoglobin (Bld) [Mass/Vol] 10.7 g/dL Low 13.0-17.0 [facility] Comment on above: Performed By: #### L [id number] ####[facility] ([facility])[address] [place] [address] Immature granulocytes (Bld) [#/Vol] 0.06 10*3/uL Normal 0.00-0.20 [facility] Comment on above: Performed By: #### L [id number] ####[facility] ([facility] [place] [address] Immature granulocytes/100 WBC (Bld) 0.7 % Normal 0.0-1.0 [facility] Comment on above: Performed By: #### L [id number] ####[facility] ([facility] [place] [address] Lymphocytes (Bld) [#/Vol] 1.82 10*3/uL Normal 1.20-4.00 [facility] Comment on above: Performed By: #### L [id number] ####[facility] ([facility]AKER)[address] [place] [address] Lymphocytes/100 WBC (Bld) 22.2 % Normal 20.0-45.0 [facility] Comment on above: Performed By: #### L [id number] ####[facility] ([facility]ER)[address] [address] MCH (RBC) [Entitic mass] 30.3 pg Normal 27.0-33.0 [facility] Comment on above: Performed By: #### L [id number] ####[facility] ([facility])[address] [place] [address] MCV (RBC) [Entitic vol] 91.5 fL Normal 82.0-98.0 [facility] Comment on above: Performed By: #### L [id number] ####[facility] ([facility]ER)[address] [place] [address] Monocytes (Bld) [#/Vol] 0.67 10*3/uL Normal 0.10-1.00 [facility] Comment on above: Performed By: #### L [id number] ####[facility] ([facility]ER)[address] [address] Monocytes/100 WBC (Bld) 8.2 % Normal 5.0-12.0 [facility] Comment on above: Performed By: #### L [id number] ####[facility] ([facility])[address] [place] [address] Neutrophils (Bld) [#/Vol] 5.55 10*3/uL Normal 1.60-7.60 [facility] Comment on above: Performed By: #### L [id number] ####[facility] ([facility])[address] [place] [address] Neutrophils/100 WBC (Bld) 67.6 % Normal 40.0-72.0 [facility] Comment on above: Performed By: #### L [id number] ####[facility] ([facility]ER)[address] [place] [address] NRBC (PER 100 WBCS) BY AUTOMATED COUNT 0.0 % Normal 0 [facility] Comment on above: Performed By: #### L [id number] ####[facility] ([facility])[address] [address] PLATELETS (10*3/UL) IN BLOOD AUTOMATED COUNT 160 10*3/uL Normal 150-400 [facility] Comment on above: Performed By: #### L [id number] ####[facility] ([facility])[address] [place] [address] RBC (Bld) [#/Vol] 3.53 10*6/uL Low 4.20-5.70 [facility] Comment on above: Performed By: #### L [id number] ####[facility] ([facility])[address] [place] [address] WBC (Bld) [#/Vol] 8.21 10*3/uL Normal 4.00-10.60 [facility] Comment on above: Performed By: #### L [id number] ####[facility] ([facility])[address] [place] [address] MAGNESIUMon 04-28-2023 Magnesium [Mass/Vol] 1.7 mg/dL Low 1.9-2.7 [facility] Comment on above: Performed By: #### L [id number] ####[facility] ([facility])[address] [place] [address] PHOSPHORUSon 04-28-2023 Magnesium [Mass/Vol] 3.9 mg/dL Normal 2.5-5.0 [facility] Comment on above: Performed By: #### L [id number] ####[facility] ([facility])[address] [place] [address] POCT GLUCOSE METER UNSOLICIT ED RESULTSon 04-28-2023 Glucose [Mass/Vol] 111 mg/dL High 70-105 [facility] Comment on above: Order Comment: Waive d Testing in the ED is performed under the ED CLIA certificate #[id number]. Result Comment: [email or web address] Performed By: #### L [id number] ####[facility] ([facility])[address] [place] [address] Glucose [Mass/Vol] 86 mg/dL Normal 70-105 [facility] Comment on above: Order Comment: Waive d Testing in the ED is performed under the ED CLIA certificate #[id number]. Result Comment: mitra shea Performed By: #### L [id number] ####[facility] ([facility])[address] [place] [address] Glucose [Mass/Vol] 159 mg/dL High 70-105 [facility] Comment on above: Order Comment: Waive d Testing in the ED is performed under the ED CLIA certificate #[id number]. Result Comment: [email or web address] Performed By: #### L [id number] ####[facility] ([facility])[address] [place] [address] Glucose [Mass/Vol] 109 mg/dL High 70-105 [facility] Comment on above: Order Comment: Waive d Testing in the ED is performed under the ED CLIA certificate #[id number]. Result Comment: [email or web address] Performed By: #### L [id number] ####[facility] ([facility])[address] [place] [address] BASIC METABOLIC PANELon 11-1 Anion gap [Moles/Vol] 11 mmol/L Normal 7-20 [facility] Comment on above: Performed By: #### L [id number] ####[facility] ([facility])[address] [place] [address] Calcium [Mass/Vol] 8.2 mg/dL Low 8.6-10.3 [facility] Comment on above: Performed By: #### L [id number] ####[facility] ([facility])[address] [place] [address] Chloride [Moles/Vol] 112 mmol/L High 98-107 [facility] Comment on above: Performed By: #### L [id number] ####[facility] (BEAKER)[address] [place] [address] CO2 [Moles/Vol] 23 mmol/L Normal 21-31 [facility] Comment on above: Performed By: #### L [id number] ####[facility] ([facility])[address] [place] [address] Creatinine [Mass/Vol] 0.64 mg/dL Low 0.70-1.30 [facility] Comment on above: Performed By: #### L [id number] ####[facility] ([facility] [place] [address] GLOMERULAR FILTRATION RATE ML/MIN/1.73 SQ M.PREDICTED 102.5 mL/min/1.73m*2 Normal >60.0 [facility] Comment on above: Result Comment: [facility]???s estimated glomerular filtration rate (eGFR) will [...] of individuals. Performed By: #### L [id number] ####[facility] (BE[facility]ER)[address] [place] [address] Glucose [Mass/Vol] 116 mg/dL High 70-100 [facility] Comment on above: Performed By: #### L [id number] ####[facility] ([facility]ER)[address] [place] [address] Potassium [Moles/Vol] 3.9 mmol/L Normal 3.5-5.1 [facility] Comment on above: Performed By: #### L [id number] ####[facility] ([facility]ER)[address] [place] [address] Sodium [Moles/Vol] 142 mmol/L Normal 136-145 [facility] Comment on above: Performed By: #### L [id number] ####[facility] ([facility] [place] [address] Urea nitrogen [Mass/Vol] 22 mg/dL Normal 7-25 [facility] Comment on above: Performed By: #### L [id number] ####[facility] ([facility])[address] [place] [address] UREA NITROGEN/CREATININ E (MASS RATIO) IN SER/PLAS 34.4 Normal [facility] Comment on above: Performed By: #### L [id number] ####[facility] ([facility])[address] [place] [address] CBC WITH AUTO DIFFERENTIALon 04-27-2023 Basophils (Bld) [#/Vol] 0.02 10*3/uL Normal 0.00-0.20 [facility] Comment on above: Performed By: #### L [id number] ####[facility] ([facility])[address] [place] [address] Basophils/100 WBC (Bld) 0.2 % Normal 0.0-1.0 [facility] Comment on above: Performed By: #### L [id number] ####[facility] ([facility])[address] [place] [address] Eosinophils (Bld) [#/Vol] 0.05 10*3/uL Normal 0.00-0.50 [facility] Comment on above: Performed By: #### L [id number] ####[facility] ([facility])[address] [place] [address] Eosinophils/100 WBC (Bld) 0.5 % Normal 0.0-6.0 [facility] Comment on above: Performed By: #### L [id number] ####[facility] ([facility])[address] [place] [address] Erythrocyte distribution width (RBC) [Ratio] 13.6 % Normal 11.5-15.0 [facility] Comment on above: Performed By: #### L [id number] ####[facility] ([facility]ER)[address] [place] [address] ERYTHROCYTE MEAN CORPUSCULAR HEMOGLOBIN CONCENTRATION (G/DL) BY AUTOMATED 33.7 g/dL Normal 32.0-35.0 [facility] Comment on above: Performed By: #### L [id number] ####[facility] ([facility])[address] [place] [address] Hematocrit (Bld) [Volume fraction] 26.4 % Low 39.0-55.0 [facility] Comment on above: Performed By: #### L [id number] ####[facility] ([facility])[address] [place] [address] Hemoglobin (Bld) [Mass/Vol] 8.9 g/dL Low 13.0-17.0 [facility] Comment on above: Performed By: #### L [id number] ####[facility] ([facility])[address] [place] [address] Immature granulocytes (Bld) [#/Vol] 0.07 10*3/uL Normal 0.00-0.20 [facility] Comment on above: Performed By: #### L [id number] ####[facility] ([facility])[address] [place] [address] Immature granulocytes/100 WBC (Bld) 0.8 % Normal 0.0-1.0 [facility] Comment on above: Performed By: #### L [id number] ####[facility] ([facility])[address] [place] [address] Lymphocytes (Bld) [#/Vol] 1.24 10*3/uL Normal 1.20-4.00 [facility] Comment on above: Performed By: #### L [id number] ####[facility] ([facility])[address] [place] [address] Lymphocytes/100 WBC (Bld) 13.3 % Low 20.0-45.0 [facility] Comment on above: Performed By: #### L [id number] ####[facility] ([facility])[address] [place] [address] MCH (RBC) [Entitic mass] 30.5 pg Normal 27.0-33.0 [facility] Comment on above: Performed By: #### L [id number] ####[facility] ([facility] [place] [address] MCV (RBC) [Entitic vol] 90.4 fL Normal 82.0-98.0 [facility] Comment on above: Performed By: #### L [id number] ####[facility] ([facility])[address] [place] [address] Monocytes (Bld) [#/Vol] 0.72 10*3/uL Normal 0.10-1.00 [facility] Comment on above: Performed By: #### L [id number] ####[facility] ([facility])[address] [place] [address] Monocytes/100 WBC (Bld) 7.7 % Normal 5.0-12.0 [facility] Comment on above: Performed By: #### L [id number] ####[facility] ([facility])[address] [place] [address] Neutrophils (Bld) [#/Vol] 7.22 10*3/uL Normal 1.60-7.60 [facility] Comment on above: Performed By: #### L [id number] ####[facility] ([facility])[address] [place] [address] Neutrophils/100 WBC (Bld) 77.5 % High 40.0-72.0 [facility] Comment on above: Performed By: #### L [id number] ####[facility] ([facility] [place] [address] NRBC (PER 100 WBCS) BY AUTOMATED COUNT 0.0 % Normal 0 [facility] Comment on above: Performed By: #### L [id number] ####[facility] (BEAK[facility])[address] [place] [address] PLATELETS (10*3/UL) IN BLOOD AUTOMATED COUNT 100 10*3/uL Low 150-400 [facility] Comment on above: Performed By: #### L [id number] ####[facility] ([facility])[address] [place] [address] RBC (Bld) [#/Vol] 2.92 10*6/uL Low 4.20-5.70 [facility] Comment on above: Performed By: #### L [id number] ####[facility] ([facility])[address] [place] [address] WBC (Bld) [#/Vol] 9.32 10*3/uL Normal 4.00-10.60 [facility] Comment on above: Performed By: #### L [id number] ####[facility] ([facility])[address] [place] [address] MAGNESIUMon 04-27-2023 Magnesium [Mass/Vol] 1.9 mg/dL Normal 1.9-2.7 [facility] Comment on above: Performed By: #### L [id number] ####[facility] ([facility])[address] [place] [address] PHOSPHORUSon 04-27-2023 Magnesium [Mass/Vol] 3.5 mg/dL Normal 2.5-5.0 [facility] Comment on above: Performed By: #### L [id number] ####[facility] ([facility])[address] [place] [address] POCT GLUCOSE METER UNSOLICIT ED RESULTSon 04-27-2023 Glucose [Mass/Vol] 100 mg/dL Normal 70-105 [facility] Comment on above: Order Comment: Waive d Testing in the ED is performed under the ED CLIA certificate #[id number]. Result Comment: afin [email or web address] Performed By: #### L [id number] ####[facility] ([facility])[address] [place] [address] Glucose [Mass/Vol] 165 mg/dL High 70-105 [facility] Comment on above: Order Comment: Waive d Testing in the ED is performed under the ED CLIA certificate #[id number]. Result Comment: [email or web address] Performed By: #### L [id number] ####[facility] ([facility])[address] [place] [address] Glucose [Mass/Vol] 157 mg/dL High 70-105 [facility] Comment on above: Order Comment: Waive d Testing in the ED is performed under the ED CLIA certificate #[id number]. Result Comment: [email or web address] Performed By: #### L [id number] ####[facility] ([facility])[address] [place] [address] Glucose [Mass/Vol] 112 mg/dL High 70-105 [facility] Comment on above: Order Comment: Waive d Testing in the ED is performed under the ED CLIA certificate #[id number]. Result Comment: afin [email or web address] Performed By: #### L [id number] ####[facility] ([facility])[address] [place] [address] PROTIME-INRon 04-27-2023 INR IN PPP BY COAGULATION ASSAY 1.21 High 0.90-1.10 [facility] Comment on above: Result Comment: ACCC P [...] CHEST 1995;[id number]. Performed By: #### L [id number] ####[facility] ([facility] [place] [address] PROTHROMBIN TIME (PT) IN PPP BY COAGULATION ASSAY 15.3 Seconds High 12.3-14.8 [facility] Comment on above: Performed By: #### L [id number] ####[facility] ([facility])[address] [place] [address] 30on 04-26-2023 30 Normal [facility] 30 Normal [facility] 30 Normal [facility] 30 Normal [facility] BASIC METABOLIC PANELon 04-17 Anion gap [Moles/Vol] 10 mmol/L Normal 7-20 [facility] Comment on above: Performed By: #### L [id number] ####[facility] ([facility] [place] [address] Calcium [Mass/Vol] 8.5 mg/dL Low 8.6-10.3 [facility] Comment on above: Performed By: #### L [id number] ####[facility] ([facility])[address] [place] [address] Chloride [Moles/Vol] 109 mmol/L High 98-107 [facility] Comment on above: Performed By: #### L [id number] ####[facility] ([facility])[address] [place] [address] CO2 [Moles/Vol] 25 mmol/L Normal 21-31 [facility] Comment on above: Performed By: #### L [id number] ####[facility] ([facility])[address] [place] [address] Creatinine [Mass/Vol] 0.62 mg/dL Low 0.70-1.30 [facility] Comment on above: Performed By: #### L [id number] ####[facility] ([facility])[address] [place] [address] GLOMERULAR FILTRATION RATE ML/MIN/1.73 SQ M.PREDICTED 103.5 mL/min/1.73m*2 Normal >60.0 [facility] Comment on above: Result Comment: [facility]???s estimated glomerular filtration rate (eGFR) will [...] of individuals. Performed By: #### L [id number] ####[facility] ([facility])[address] [place] [address] Glucose [Mass/Vol] 136 mg/dL High 70-100 [facility] Comment on above: Performed By: #### L [id number] ####[facility] ([facility])[address] [place] [address] Potassium [Moles/Vol] 3.6 mmol/L Normal 3.5-5.1 [facility] Comment on above: Performed By: #### L [id number] ####[facility] ([facility])[address] [place] [address] Sodium [Moles/Vol] 140 mmol/L Normal 136-145 [facility] Comment on above: Performed By: #### L [id number] ####[facility] ([facility])[address] [place] [address] Urea nitrogen [Mass/Vol] 18 mg/dL Normal 7-25 [facility] Comment on above: Performed By: #### L [id number] ####[facility] ([facility])[address] [place] [address] UREA NITROGEN/CREATININ E (MASS RATIO) IN SER/PLAS 29.0 Normal [facility] Comment on above: Performed By: #### L [id number] ####[facility] ([facility])[address] [place] [address] Anion gap [Moles/Vol] 9 mmol/L Normal 7-20 [facility] Comment on above: Performed By: #### L [id number] ####[facility] ([facility])[address] [place] [address] Calcium [Mass/Vol] 7.8 mg/dL Low 8.6-10.3 [facility] Comment on above: Performed By: #### L [id number] ####[facility] ([facility] [place] [address] Chloride [Moles/Vol] 112 mmol/L High 98-107 [facility] Comment on above: Performed By: #### L [id number] ####[facility] ([facility])[address] [place] [address] CO2 [Moles/Vol] 23 mmol/L Normal 21-31 [facility] Comment on above: Performed By: #### L [id number] ####[facility] ([facility])[address] [place] [address] Creatinine [Mass/Vol] 0.61 mg/dL Low 0.70-1.30 [facility] Comment on above: Performed By: #### L [id number] ####[facility] ([facility])[address] [place] [address] GLOMERULAR FILTRATION RATE ML/MIN/1.73 SQ M.PREDICTED 104.0 mL/min/1.73m*2 Normal >60.0 [facility] Comment on above: Result Comment: [facility]???s estimated glomerular filtration rate (eGFR) will [...] of individuals. Performed By: #### L [id number] ####[facility] ([facility] [place] [address] Glucose [Mass/Vol] 112 mg/dL High 70-100 [facility] Comment on above: Performed By: #### L [id number] ####[facility] ([facility]))[address] [place] [address] Potassium [Moles/Vol] 3.4 mmol/L Low 3.5-5.1 [facility] Comment on above: Performed By: #### L [id number] ####[facility] ([facility])[address] [place] [address] Sodium [Moles/Vol] 141 mmol/L Normal 136-145 [facility] Comment on above: Performed By: #### L [id number] ####[facility] ([facility])[address] [place] [address] Urea nitrogen [Mass/Vol] 14 mg/dL Normal 7-25 [facility] Comment on above: Performed By: #### L [id number] ####[facility] ([facility])[address] [place] [address] UREA NITROGEN/CREATININ E (MASS RATIO) IN SER/PLAS 23.0 Normal [facility] Comment on above: Performed By: #### L [id number] ####[facility] ([facility])[address] [place] [address] CBCon 04-26-2023 Erythrocyte distribution width (RBC) [Ratio] 13.9 % Normal 11.5-15.0 [facility] Comment on above: Performed By: #### L [id number] ####[facility] ([facility])[address] [place] [address] ERYTHROCYTE MEAN CORPUSCULAR HEMOGLOBIN CONCENTRATION (G/DL) BY AUTOMATED 33.7 g/dL Normal 32.0-35.0 [facility] Comment on above: Performed By: #### L [id number] ####[facility] ([facility] [place] [address] Hematocrit (Bld) [Volume fraction] 24.3 % Low 39.0-55.0 [facility] Comment on above: Performed By: #### L [id number] ####[facility] ([facility])[address] [place] [address] Hemoglobin (Bld) [Mass/Vol] 8.2 g/dL Low 13.0-17.0 [facility] Comment on above: Performed By: #### L [id number] ####[facility] ([facility])[address] [place] [address] IMMATURE PLATELET FRACTION % 4.3 % Normal 0.8-6.3 [facility] Comment on above: Performed By: #### L [id number] ####[facility] ([facility])[address] [place] [address] MCH (RBC) [Entitic mass] 30.4 pg Normal 27.0-33.0 [facility] Comment on above: Performed By: #### L [id number] ####[facility] ([facility])[address] [place] [address] MCV (RBC) [Entitic vol] 90.0 fL Normal 82.0-98.0 [facility] Comment on above: Performed By: #### L [id number] ####[facility] ([facility])[address] [place] [address] PLATELETS (10*3/UL) IN BLOOD AUTOMATED COUNT 71 10*3/uL Low 150-400 [facility] Comment on above: Performed By: #### L [id number] ####[facility] ([facility])[address] [place] [address] RBC (Bld) [#/Vol] 2.70 10*6/uL Low 4.20-5.70 [facility] Comment on above: Performed By: #### L [id number] ####[facility] ([facility])[address] [place] [address] WBC (Bld) [#/Vol] 7.74 10*3/uL Normal 4.00-10.60 [facility] Comment on above: Performed By: #### L [id number] ####[facility] ([facility])[address] [place] [address] CO-OXIMETRYon 04-26-2023 CARBOXYHEMOGLOBIN/ HEMOGLOBIN TOTAL % IN BLOOD 1.4 % Normal [facility] Comment on above: Performed By: #### L [id number] ####[facility] [id number] [place] [address] [place] Hemoglobin (Bld) [Mass/Vol] 8.5 g/dL Normal [facility] Comment on above: Performed By: #### L [id number] ####[facility] [id number] [place] [address] [place] METHEMOGLOBIN/100 IN BLOOD 0.3 % Normal 0.0-1.5 [facility] Comment on above: Performed By: #### L [id number] ####[facility] [id number] [place] [address] [place] Oxygen saturation in Blood 57.1 % Normal [facility] Comment on above: Performed By: #### L [id number] ####[facility] [id number] [place] [address] [place] OXYGENATED HEMOGLOBIN IN BLOOD 56.1 % Normal [facility] Comment on above: Performed By: #### L [id number] ####[facility] [id number] [place] [address] [place] IRON AND TIBCon 04-26-2023 IRON (UG/DL) IN SER/PLAS 16 ug/dL Low 50-212 [facility] Comment on above: Performed By: #### L [id number] ####[facility] ([facility])[address] [place] [address] IRON BINDING CAPACITY (UG/DL) IN SER/PLAS 143 ug/dL Low 250-450 [facility] Comment on above: Performed By: #### L [id number] ####[facility] ([facility])[address] [place] [address] IRON BINDING CAPACITY.UNSATURAT ED (UG/DL) IN SER/PLAS 127.0 ug/dL Low 155.0-355.0 [facility] Comment on above: Performed By: #### L [id number] ####[facility] ([facility])[address] [place] [address] IRON SATURATION (%) IN SER/PLAS 11 % Low 20-50 [facility] Comment on above: Performed By: #### L [id number] ####[facility] ([facility])[address] [place] [address] LACTIC ACID, PLASMAon 2022 LACTATE (MMOL/L) IN SER/PLAS 0.6 mmol/L Normal 0.5-2.2 [facility] Comment on above: Performed By: #### L [id number] ####[facility] ([facility])[address] [place] [address] MAGNESIUMon 04-26-2023 Magnesium [Mass/Vol] 1.6 mg/dL Low 1.9-2.7 [facility] Comment on above: Performed By: #### L [id number] ####[facility] ([facility])[address] [place] [address] Magnesium [Mass/Vol] 1.7 mg/dL Low 1.9-2.7 [facility] Comment on above: Performed By: #### L [id number] ####[facility] ([facility])[address] [place] [address] PHOSPHORUSon 04-26-2023 Magnesium [Mass/Vol] 3.4 mg/dL Normal 2.5-5.0 [facility] Comment on above: Performed By: #### L [id number] ####[facility] ([facility])[address] [place] [address] Magnesium [Mass/Vol] 3.7 mg/dL Normal 2.5-5.0 [facility] Comment on above: Performed By: #### L [id number] ####[facility] ([facility] [place] [address] POCT GLUCOSE METER UNSOLICIT ED RESULTSon 04-26-2023 Glucose [Mass/Vol] 134 mg/dL High 70-105 [facility] Comment on above: Order Comment: Waive d Testing in the ED is performed under the ED CLIA certificate #[id number]. Result Comment: cfit [email or web address] Performed By: #### L [id number] ####[facility] ([facility])[address] [place] [address] Glucose [Mass/Vol] 129 mg/dL High 70-105 [facility] Comment on above: Order Comment: Waive d Testing in the ED is performed under the ED CLIA certificate #[id number]. Result Comment: cfit [email or web address] Performed By: #### L [id number] ####[facility] ([facility])[address] [facility] [address] Glucose [Mass/Vol] 121 mg/dL High 70-105 [facility] Comment on above: Order Comment: Waive d Testing in the ED is performed under the ED CLIA certificate #[id number]. Result Comment: than sen2 Performed By: #### L [id number] ####[facility] ([facility])[address] [facility] [address] Glucose [Mass/Vol] 113 mg/dL High 70-105 [facility] Comment on above: Order Comment: Waive d Testing in the ED is performed under the ED CLIA certificate #[id number]. Result Comment: than sen2 Performed By: #### L [id number] ####[facility] ([facility])[address] [facility] [address] PREALBUMINon 04-26-2023 Prealbumin [Mass/Vol] 6.4 mg/dL Normal [facility] Comment on above: Performed By: #### L [id number] ####[facility] ([facility])[address] [facility] [address] TRANSFERRINon 04-26-2023 Magnesium [Mass/Vol] 82 mg/dL Low 168-348 [facility] Comment on above: Performed By: #### L [id number] ####[facility] ([facility])[address] [place] [address] 30on 04-25-2023 30 Normal [facility] AMMONIAon 04-25-2023 AMMONIA (UMOL/L) IN PLASMA 39 umol/L Normal 18-72 [facility] Comment on above: Performed By: #### L [id number] ####[facility] ([facility])[address] [place] [address] APTTon 04-25-2023 ACTIVATED PARTIAL THROMBOPLASTIN TIME IN PPP BY COAGULATION ASSAY 37.2 Seconds High 25.0-35.0 [facility] Comment on above: Result Comment: Clin ical significance of the APTT is questionable in the presence of heparin. Performed By: #### L [id number] ####[facility] ([facility])[address] [place] [address] BASIC METABOLIC PANELon Anion gap [Moles/Vol] 9 mmol/L Normal 7-20 [facility] Comment on above: Performed By: #### L [id number] ####[facility] ([facility])[address] [place] [address] Calcium [Mass/Vol] 8.2 mg/dL Low 8.6-10.3 [facility] Comment on above: Performed By: #### L [id number] ####[facility] ([facility])[address] [place] [address] Chloride [Moles/Vol] 111 mmol/L High 98-107 [facility] Comment on above: Performed By: #### L [id number] ####[facility] ([facility])[address] [place] [address] CO2 [Moles/Vol] 24 mmol/L Normal 21-31 [facility] Comment on above: Performed By: #### L [id number] ####[facility] ([facility])[address] [place] [address] Creatinine [Mass/Vol] 0.71 mg/dL Normal 0.70-1.30 [facility] Comment on above: Performed By: #### L [id number] ####[facility] ([facility])[address] [place] [address] GLOMERULAR FILTRATION RATE ML/MIN/1.73 SQ M.PREDICTED 99.3 mL/min/1.73m*2 Normal >60.0 [facility] Comment on above: Result Comment: [facility]???s estimated glomerular filtration rate (eGFR) will [...] of individuals. Performed By: #### L [id number] ####[facility] ([facility])[address] [place] [address] Glucose [Mass/Vol] 124 mg/dL High 70-100 [facility] Comment on above: Performed By: #### L [id number] ####[facility] ([facility])[address] [place] [address] Potassium [Moles/Vol] 3.9 mmol/L Normal 3.5-5.1 [facility] Comment on above: Performed By: #### L [id number] ####[facility] ([facility])[address] [place] [address] Sodium [Moles/Vol] 140 mmol/L Normal 136-145 [facility] Comment on above: Performed By: #### L [id number] ####[facility] ([facility]AKER)[address] [place] [address] Urea nitrogen [Mass/Vol] 17 mg/dL Normal 7-25 [facility] Comment on above: Performed By: #### L [id number] ####[facility] ([facility])[address] [place] [address] UREA NITROGEN/CREATININ E (MASS RATIO) IN SER/PLAS 23.9 Normal [facility] Comment on above: Performed By: #### L [id number] ####[facility] ([facility] [place] [address] CBCon 04-25-2023 Erythrocyte distribution width (RBC) [Ratio] 14.0 % Normal 11.5-15.0 [facility] Comment on above: Performed By: #### L [id number] ####[facility] ([facility])[address] [address] ERYTHROCYTE MEAN CORPUSCULAR HEMOGLOBIN CONCENTRATION (G/DL) BY AUTOMATED 34.1 g/dL Normal 32.0-35.0 [facility] Comment on above: Performed By: #### L [id number] ####[facility] ([facility])[address] [place] [address] Hematocrit (Bld) [Volume fraction] 24.9 % Low 39.0-55.0 [facility] Comment on above: Performed By: #### L [id number] ####[facility] ([facility])[address] [address] Hemoglobin (Bld) [Mass/Vol] 8.5 g/dL Low 13.0-17.0 [facility] Comment on above: Performed By: #### L [id number] ####[facility] ([facility])[address] [address] IMMATURE PLATELET FRACTION % 5.1 % Normal 0.8-6.3 [facility] Comment on above: Performed By: #### L [id number] ####[facility] ([facility] [address] MCH (RBC) [Entitic mass] 30.7 pg Normal 27.0-33.0 [facility] Comment on above: Performed By: #### L [id number] ####[facility] ([facility] [address] MCV (RBC) [Entitic vol] 89.9 fL Normal 82.0-98.0 [facility] Comment on above: Performed By: #### L [id number] ####[facility] ([facility] [address] PLATELETS (10*3/UL) IN BLOOD AUTOMATED COUNT 55 10*3/uL Low 150-400 [facility] Comment on above: Performed By: #### L [id number] ####[facility] ([facility] [address] RBC (Bld) [#/Vol] 2.77 10*6/uL Low 4.20-5.70 [facility] Comment on above: Performed By: #### L [id number] ####[facility] ([facility] [address] WBC (Bld) [#/Vol] 9.29 10*3/uL Normal 4.00-10.60 [facility] Comment on above: Performed By: #### L [id number] ####[facility] ([facility])[address] [address] Erythrocyte distribution width (RBC) [Ratio] 14.6 % Normal 11.5-15.0 [facility] Comment on above: Performed By: #### L [id number] ####[facility] ([facility])[address] [address] ERYTHROCYTE MEAN CORPUSCULAR HEMOGLOBIN CONCENTRATION (G/DL) BY AUTOMATED 34.1 g/dL Normal 32.0-35.0 [facility] Comment on above: Performed By: #### L [id number] ####[facility] ([facility])[address] [address] Hematocrit (Bld) [Volume fraction] 25.5 % Low 39.0-55.0 [facility] Comment on above: Performed By: #### L [id number] ####[facility] ([facility])[address], [place] [address] Hemoglobin (Bld) [Mass/Vol] 8.7 g/dL Low 13.0-17.0 [facility] Comment on above: Performed By: #### L [id number] ####[facility] ([facility]ER)[address], [place] [address] IMMATURE PLATELET FRACTION % 5.5 % Normal 0.8-6.3 [facility] Comment on above: Performed By: #### L [id number] ####[facility] ([facility] [place] [address] MCH (RBC) [Entitic mass] 31.0 pg Normal 27.0-33.0 [facility] Comment on above: Performed By: #### L [id number] ####[facility] ([facility])[address] [place] [address] MCV (RBC) [Entitic vol] 90.7 fL Normal 82.0-98.0 [facility] Comment on above: Performed By: #### L [id number] ####[facility] ([facility])[address] [place] [address] PLATELETS (10*3/UL) IN BLOOD AUTOMATED COUNT 56 10*3/uL Low 150-400 [facility] Comment on above: Result Comment: P=69 , 1D Performed By: #### L [id number] ####[facility] ([facility])[address] [place] [address] RBC (Bld) [#/Vol] 2.81 10*6/uL Low 4.20-5.70 [facility] Comment on above: Performed By: #### L [id number] ####[facility] ([facility] [place] [address] WBC (Bld) [#/Vol] 10.33 10*3/uL Normal 4.00-10.60 [facility] Comment on above: Performed By: #### L [id number] ####[facility] [facility]))[address] [place] [address] CO-OXIMETRYon 04-25-2023 CARBOXYHEMOGLOBIN/ HEMOGLOBIN TOTAL % IN BLOOD 0.8 % Normal [facility] Comment on above: Performed By: #### L [id number] ####[facility] RESPIRATORY [id number] [place] [address] [place] Hemoglobin (Bld) [Mass/Vol] 7.8 g/dL Normal [facility] Comment on above: Performed By: #### L [id number] ####[facility] RESPIRATORY [id number] [place] [address] [place] METHEMOGLOBIN/100 IN BLOOD 1.1 % Normal 0.0-1.5 [facility] Comment on above: Performed By: #### L [id number] ####[facility] RESPIRATORY [id number] [place] [address] [place] Oxygen saturation in Blood 70.2 % Normal [facility] Comment on above: Performed By: #### L [id number] ####[facility] RESPIRATORY [id number] [place] [address] [place] OXYGENATED HEMOGLOBIN IN BLOOD 68.8 % Normal [facility] Comment on above: Performed By: #### L [id number] ####[facility] RESPIRATORY [id number] [place] [address] [facility] HEPATIC FUNCTION PANELon Albumin [Mass/Vol] 3.3 g/dL Low 3.5-5.7 [facility] Comment on above: Performed By: #### L [id number] ####[facility] LAB (BEAKER)[address] [place] [address] ALP [Catalytic activity/Vol] 49 U/L Normal 34-104 [facility] Comment on above: Performed By: #### L [id number] ####[facility] LAB (BEAKER)[address] [place] [address] ALT [Catalytic activity/Vol] 60 U/L High 7-52 [facility] Comment on above: Performed By: #### L [id number] ####[facility] LAB (BEAKER)[address] [place] [address] AST [Catalytic activity/Vol] 127 U/L High 13-39 [facility] Comment on above: Performed By: #### L [id number] ####[facility] (BEAKER)[address] [place] [address] Bilirubin [Mass/Vol] 0.5 mg/dL Normal 0.3-1.0 [facility] Comment on above: Performed By: #### L [id number] ####[facility] ([facility])[address] [place] [address] Magnesium [Mass/Vol] 0.2 mg/dL Normal 0-0.2 [facility] Comment on above: Performed By: #### L [id number] ####[facility] ([facility])[address] [place] [address] Protein [Mass/Vol] 4.8 g/dL Low 6.0-8.3 [facility] Comment on above: Performed By: #### L [id number] ####[facility] ([facility])[address] [place] [address] LACTIC ACID WITH 4 HOUR REFL EXon 04-25-2023 LACTATE (MMOL/L) IN SER/PLAS 1.4 mmol/L Normal 0.5-2.2 [facility] Comment on above: Performed By: #### L [id number] ####[facility] ([facility])[address] [place] [address] MAGNESIUMon 04-25-2023 Magnesium [Mass/Vol] 1.7 mg/dL Low 1.9-2.7 [facility] Comment on above: Performed By: #### L [id number] ####[facility] ([facility])[address] [place] [address] NURSNOTEon 04-25-2023 NURSNOTE Normal [facility] NURSNOTE Normal [facility] PHOSPHORUSon 04-25-2023 Magnesium [Mass/Vol] 2.3 mg/dL Low 2.5-5.0 [facility] Comment on above: Performed By: #### L [id number] ####[facility] ([facility])[address] [place] [address] POCT GLUCOSE METER UNSOLICIT ED RESULTSon 04-25-2023 Glucose [Mass/Vol] 106 mg/dL High 70-105 [facility] Comment on above: Order Comment: Waive d Testing in the ED is performed under the ED CLIA certificate #[id number]. Result Comment: [email or web address] suraj Performed By: #### L [id number] ####[facility] (efw-suhl)[address] [place] [address] Glucose [Mass/Vol] 128 mg/dL High 70-105 [facility] Comment on above: Order Comment: Waive d Testing in the ED is performed under the ED CLIA certificate #[id number]. Result Comment: [email or web address] Performed By: #### L [id number] ####[facility] (BEeTelemetry)[address] [place] [address] PROTIME-INRon 04-25-2023 INR IN PPP BY COAGULATION ASSAY 1.34 High 0.90-1.10 [facility] Comment on above: Result Comment: ACCC P [...] CHEST 1995;108:231S-246S. Performed By: #### L [id number] ####[facility] (efw-suhl)[address] [place] [address] PROTHROMBIN TIME (PT) IN PPP BY COAGULATION ASSAY 16.6 Seconds High 12.3-14.8 [facility] Comment on above: Performed By: #### L [id number] ####[facility] (BEeTelemetry)[address] [place] [address] INR IN PPP BY COAGULATION ASSAY 1.39 High 0.90-1.10 [facility] Comment on above: Result Comment: ACCC P [...] CHEST 1995;108:231S-246S. Performed By: #### L [id number] ####[facility] ([facility])[address] [place] [address] PROTHROMBIN TIME (PT) IN PPP BY COAGULATION ASSAY 17.1 Seconds High 12.3-14.8 [facility] Comment on above: Performed By: #### L [id number] ####[facility] ([facility])[address] [place] [address] 30on 04-24-2023 30 Normal [facility] 30 Normal [facility] 30 Normal [facility] ARTERIAL BLOOD GAS WITH IONI ZED CALCIUMon 04-24-2023 Base excess Calc (Bld) [Moles/Vol] -2.0000 mmol/L Normal -2.0-3.0 [facility] Comment on above: Performed By: #### L [id number] ####[facility] RESPIRATORY [id number] [place] [address] [place] CALCIUM IONIZED (MMOL/L) IN BLOOD 1.06 mmol/L Low 1.15-1.33 [facility] Comment on above: Performed By: #### L [id number] ####[facility] RESPIRATORY [id number] CO2 (Bld) [Partial pressure] 31 mm[Hg] Low 35-48 [facility] Comment on above: Performed By: #### L [id number] ####[facility] RESPIRATORY [id number] HCO3 (Bld) [Moles/Vol] 21.5 mmol/L Normal 21.0-28.0 [facility] Comment on above: Performed By: #### L [id number] ####[facility] RESPIRATORY [id number] [place] [address] Oxygen (Bld) [Partial pressure] 118 mm[Hg] High 83-100 [facility] Comment on above: Performed By: #### L [id number] ####[facility] RESPIRATORY [id number] [place] [address] OXYGEN SATURATION (%) IN ARTERIAL BLOOD 99.4 % High 94.0-98.0 [facility] Comment on above: Performed By: #### L [id number] ####[facility] RESPIRATORY [id number] [place] [address] pH (Bld) 7.45 [pH] Normal 7.35-7.45 [facility] Comment on above: Performed By: #### L [id number] ####[facility] RESPIRATORY [id number] [place] [address] SOURCE OF OXYGEN AC/VC Normal [facility] Comment on above: Performed By: #### L [id number] ####[facility] RESPIRATORY [id number] [place] [address] TIDAL VOLUME (VT) CC 8 Normal [facility] Comment on above: Performed By: #### L [id number] ####[facility] RESPIRATORY [id number] [place] [address] BASIC METABOLIC PANELon 11-0 Anion gap [Moles/Vol] 10 mmol/L Normal 7-20 [facility] Comment on above: Performed By: #### L [id number] ####[facility] ([facility])[address] [facility] [address] Calcium [Mass/Vol] 8.5 mg/dL Low 8.6-10.3 [facility] Comment on above: Performed By: #### L [id number] ####[facility] ([facility])[address] [facility] [address] Chloride [Moles/Vol] 113 mmol/L High 98-107 [facility] Comment on above: Performed By: #### L [id number] ####[facility] ([facility])[address] [place] [address] CO2 [Moles/Vol] 24 mmol/L Normal 21-31 [facility] Comment on above: Performed By: #### L [id number] ####[facility] ([facility])[address] [address] Creatinine [Mass/Vol] 0.83 mg/dL Normal 0.70-1.30 [facility] Comment on above: Performed By: #### L [id number] ####[facility] ([facility])[address] [place] [address] GLOMERULAR FILTRATION RATE ML/MIN/1.73 SQ M.PREDICTED 94.7 mL/min/1.73m*2 Normal >60.0 [facility] Comment on above: Result Comment: The [facility]???s estimated glomerular filtration rate (eGFR) will [...] of individuals. Performed By: #### L [id number] ####[facility] LAB (BEAKER)[address] [place] [address] Glucose [Mass/Vol] 208 mg/dL High 70-100 [facility] Comment on above: Performed By: #### L [id number] ####[facility] ([facility] [place] [address] Potassium [Moles/Vol] 3.6 mmol/L Normal 3.5-5.1 [facility] Comment on above: Performed By: #### L [id number] ####[facility] ([facility] [place] [address] Sodium [Moles/Vol] 143 mmol/L Normal 136-145 [facility] Comment on above: Performed By: #### L [id number] ####[facility] ([facility] [facility] [address] Urea nitrogen [Mass/Vol] 19 mg/dL Normal 7-25 [facility] Comment on above: Performed By: #### L [id number] ####[facility] ([facility] [facility] [address] UREA NITROGEN/CREATININ E (MASS RATIO) IN SER/PLAS 22.9 Normal [facility] Comment on above: Performed By: #### L [id number] ####[facility] (BEAKER)[address] [facility] [address] CALCIUM, IONIZEDon CALCIUM IONIZED (MMOL/L) IN BLOOD 1.20 mmol/L Normal 1.15-1.33 [facility] Comment on above: Performed By: #### C ALCIUM, IONIZED ####[facility] RESPIRATORY [id number] [facility] [address] [place] CBCon 04-24-2023 Erythrocyte distribution width (RBC) [Ratio] 13.9 % Normal 11.5-15.0 [facility] Comment on above: Performed By: #### L [id number] ####[facility] (BEAKER)[address] [facility] [address] ERYTHROCYTE MEAN CORPUSCULAR HEMOGLOBIN CONCENTRATION (G/DL) BY AUTOMATED 34.3 g/dL Normal 32.0-35.0 [facility] Comment on above: Performed By: #### L [id number] ####[facility] ([facility] [place] [address] Hematocrit (Bld) [Volume fraction] 28.0 % Low 39.0-55.0 [facility] Comment on above: Performed By: #### L [id number] ####[facility] ([facility])[address] [place] [address] Hemoglobin (Bld) [Mass/Vol] 9.6 g/dL Low 13.0-17.0 [facility] Comment on above: Performed By: #### L [id number] ####[facility] ([facility])[address] [place] [address] IMMATURE PLATELET FRACTION % 5.1 % Normal 0.8-6.3 [facility] Comment on above: Performed By: #### L [id number] ####[facility] ([facility])[address] [place] [address] MCH (RBC) [Entitic mass] 30.7 pg Normal 27.0-33.0 [facility] Comment on above: Performed By: #### L [id number] ####[facility] ([facility])[address] [place] [address] MCV (RBC) [Entitic vol] 89.5 fL Normal 82.0-98.0 [facility] Comment on above: Performed By: #### L [id number] ####[facility] ([facility] [place] [address] PLATELETS (10*3/UL) IN BLOOD AUTOMATED COUNT 69 10*3/uL Low 150-400 [facility] Comment on above: Performed By: #### L [id number] ####[facility] ([facility] [place] [address] RBC (Bld) [#/Vol] 3.13 10*6/uL Low 4.20-5.70 [facility] Comment on above: Performed By: #### L [id number] ####[facility] LAB (BEAKER)[address] [place] [address] WBC (Bld) [#/Vol] 16.62 10*3/uL High 4.00-10.60 [facility] Comment on above: Performed By: #### L [id number] ####[facility] LAB (BEAKER)[address] [place] [address] CO-OXIMETRYon 04-24-2023 CARBOXYHEMOGLOBIN/ HEMOGLOBIN TOTAL % IN BLOOD 1.2 % Normal [facility] Comment on above: Performed By: #### L [id number] ####[facility] RESPIRATORY [id number] [place] [address] [place] Hemoglobin (Bld) [Mass/Vol] 9.6 g/dL Normal [facility] Comment on above: Performed By: #### L [id number] ####[facility] RESPIRATORY [id number] [place] [address] [place] METHEMOGLOBIN/100 IN BLOOD 0.4 % Normal 0.0-1.5 [facility] Comment on above: Performed By: #### L [id number] ####[facility] RESPIRATORY [id number] [place] [address] [place] Oxygen saturation in Blood 67.5 % Normal [facility] Comment on above: Performed By: #### L [id number] ####[facility] RESPIRATORY [id number] [place] [address] [place] OXYGENATED HEMOGLOBIN IN BLOOD 66.4 % Normal [facility] Comment on above: Performed By: #### L [id number] ####[facility] RESPIRATORY [id number] [place] [address] [place] HEMOGLOBIN AND HEMATOCRIT, B LOODon 04-24-2023 Hematocrit (Bld) [Volume fraction] 28.1 % Low 39.0-55.0 [facility] Comment on above: Performed By: #### L [id number] ####[facility] LAB (BEAKER)[address] [place] [address] Hemoglobin (Bld) [Mass/Vol] 9.5 g/dL Low 13.0-17.0 [facility] Comment on above: Performed By: #### L [id number] ####[facility] ([facility])[address] [place] [address] HEPATIC FUNCTION PANELon Albumin [Mass/Vol] 3.7 g/dL Normal 3.5-5.7 [facility] Comment on above: Performed By: #### L [id number] ####[facility] ([facility])[address] [place] [address] ALP [Catalytic activity/Vol] 39 U/L Normal 34-104 [facility] Comment on above: Performed By: #### L [id number] ####[facility] ([facility])[address] [place] [address] ALT [Catalytic activity/Vol] 82 U/L High 7-52 [facility] Comment on above: Performed By: #### L [id number] ####[facility] ([facility])[address] [place] [address] AST [Catalytic activity/Vol] 229 U/L High 13-39 [facility] Comment on above: Performed By: #### L [id number] ####[facility] ([facility])[address] [place] [address] Bilirubin [Mass/Vol] 0.5 mg/dL Normal 0.3-1.0 [facility] Comment on above: Performed By: #### L [id number] ####[facility] ([facility])[address] [place] [address] Magnesium [Mass/Vol] 0.2 mg/dL Normal 0-0.2 [facility] Comment on above: Performed By: #### L [id number] ####[facility] ([facility])[address] [place] [address] Protein [Mass/Vol] 4.9 g/dL Low 6.0-8.3 [facility] Comment on above: Performed By: #### L [id number] ####[facility] ([facility])[address] [place] [address] LACTIC ACID WITH 4 HOUR REFL EXon 04-24-2023 LACTATE (MMOL/L) IN SER/PLAS 1.3 mmol/L Normal 0.5-2.2 [facility] Comment on above: Performed By: #### L [id number] ####[facility] ([facility])[address] [place] [address] Performed By: #### L [id number] ####[facility] ([facility])[address] [place] [address] LACTATE (MMOL/L) IN SER/PLAS 4.0 mmol/L Critically high 0.5-2.2 [facility] Comment on above: Result Comment: Prev ious result verified on 04/23/20232299 on specimen/case [id number] called with component Lactate blood venous for procedure Lactic acid, venous, whole blood with value 9.1 mmol/L. Performed By: #### L [id number] ####[facility] ([facility])[address] [place] [address] LACTATE (MMOL/L) IN SER/PLAS 9.1 mmol/L Critically high 0.5-2.2 [facility] Comment on above: Result Comment: Prev ious result verified on 04/23/20232136 on specimen/case [id number] called with component Lactate blood venous for procedure Lactic acid, venous, whole blood with value 12.1 mmol/L. Performed By: #### L [id number] ####[facility] ([facility])[address] [place] [address] MAGNESIUMon 04-24-2023 Magnesium [Mass/Vol] 1.8 mg/dL Low 1.9-2.7 [facility] Comment on above: Performed By: #### L [id number] ####[facility] ([facility])[address] [place] [address] MYOGLOBIN, URINEon MYOGLOBIN URINE 2 mg/L High 0-1 [facility] Comment on above: Result Comment: The [...] was developed and its performance characteristicsdetermined by [employer]. It has not been cleared orapproved by the [place] Food and Drug Administration. This test wasperformed in a CLIA certified laboratory and is intended forclinical purposes.Performed By: [employer] [place], [place] [address]Wmctjbgioo Director: Wenceslao Healy MD, PhDCLIA Number: [id number] Performed By: #### L [id number] ####[facility] ([facility] [place] [address] POCT GLUCOSE METER UNSOLICIT ED RESULTSon 04-24-2023 Glucose [Mass/Vol] 129 mg/dL High 70-105 [facility] Comment on above: Order Comment: Waive d Testing in the ED is performed under the ED CLIA certificate #[id number]. Result Comment: [email or web address] [email or web address] Performed By: #### L [id number] ####[facility] (BEAKER)[address] [place] [address] Glucose [Mass/Vol] 116 mg/dL High 70-105 [facility] Comment on above: Order Comment: Waive d Testing in the ED is performed under the ED CLIA certificate #[id number]. Result Comment: [email or web address] Performed By: #### L [id number] ####[facility] (BEAKER)[address] [place] [address] Glucose [Mass/Vol] 106 mg/dL High 70-105 [facility] Comment on above: Order Comment: Waive d Testing in the ED is performed under the ED CLIA certificate #[id number]. Result Comment: nhay man Performed By: #### L [id number] ####[facility] (BEAKER)[address] [place] [address] Glucose [Mass/Vol] 113 mg/dL High 70-105 [facility] Comment on above: Order Comment: Waive d Testing in the ED is performed under the ED CLIA certificate #[id number]. Result Comment: nhay man Performed By: #### L [id number] ####[facility] ([facility])[address] [place] [address] Glucose [Mass/Vol] 118 mg/dL High 70-105 [facility] Comment on above: Order Comment: Waive d Testing in the ED is performed under the ED CLIA certificate #[id number]. Result Comment: nhay man Performed By: #### L [id number] ####[facility] ([facility])[address] [place] [address] Glucose [Mass/Vol] 75 mg/dL Normal 70-105 [facility] Comment on above: Order Comment: Waive d Testing in the ED is performed under the ED CLIA certificate #[id number]. Result Comment: nhay man Performed By: #### L [id number] ####[facility] ([facility])[address] [place] [address] Glucose [Mass/Vol] 163 mg/dL High 70-105 [facility] Comment on above: Order Comment: Waive d Testing in the ED is performed under the ED CLIA certificate #[id number]. Result Comment: than sen2 Performed By: #### L [id number] ####[facility] (BEAKER)[address] [place] [address] Glucose [Mass/Vol] 176 mg/dL High 70-105 [facility] Comment on above: Order Comment: Waive d Testing in the ED is performed under the ED CLIA certificate #[id number]. Result Comment: than sen2 Performed By: #### L [id number] ####[facility] (BEAKER)[address] [place] [address] Glucose [Mass/Vol] 147 mg/dL High 70-105 [facility] Comment on above: Order Comment: Waive d Testing in the ED is performed under the ED CLIA certificate #[id number]. Result Comment: [email or web address] Performed By: #### L [id number] ####[facility] (BEAKER)[address] [place] [address] Glucose [Mass/Vol] 199 mg/dL High 70-105 [facility] Comment on above: Order Comment: Waive d Testing in the ED is performed under the ED CLIA certificate #[id number]. Result Comment: [email or web address] Performed By: #### L [id number] ####[facility] ([facility])[address] [place] [address] Glucose [Mass/Vol] 202 mg/dL High 70-105 [facility] Comment on above: Order Comment: Waive d Testing in the ED is performed under the ED CLIA certificate #[id number]. Result Comment: than sen2 Performed By: #### L [id number] ####[facility] ([facility])[address] [place] [address] Glucose [Mass/Vol] 233 mg/dL High 70-105 [facility] Comment on above: Order Comment: Waive d Testing in the ED is performed under the ED CLIA certificate #[id number]. Result Comment: than sen2 Performed By: #### L [id number] ####[facility] ([facility] [place] [address] Glucose [Mass/Vol] 253 mg/dL High 70-105 [facility] Comment on above: Order Comment: Waive d Testing in the ED is performed under the ED CLIA certificate #[id number]. Result Comment: [email or web address] Performed By: #### L [id number] ####[facility] (BEAKER)[address] [place] [address] Glucose [Mass/Vol] 279 mg/dL High 70-105 [facility] Comment on above: Order Comment: Waive d Testing in the ED is performed under the ED CLIA certificate #[id number]. Result Comment: than sen2 Performed By: #### L [id number] ####[facility] ([facility])[address] [place] [address] Glucose [Mass/Vol] 270 mg/dL High 70-105 [facility] Comment on above: Order Comment: Waive d Testing in the ED is performed under the ED CLIA certificate #[id number]. Result Comment: than sen2 Performed By: #### L [id number] ####[facility] ([facility])[address] [place] [address] Glucose [Mass/Vol] 267 mg/dL High 70-105 [facility] Comment on above: Order Comment: Waive d Testing in the ED is performed under the ED CLIA certificate #[id number]. Result Comment: [email or web address] Performed By: #### L [id number] ####[facility] ([facility])[address] [facility] [address] POTASSIUM, WHOLE BLOODon Potassium [Moles/Vol] 4.4 mmol/L Normal 3.5-5.1 [facility] Comment on above: Performed By: #### P OTASSIUM, WHOLE BLOOD ####[facility] RESPIRATORY [id number] [place] [address] [facility] SODIUM, WHOLE BLOODon 2022 SODIUM, WHOLE BLOOD 141 Normal 136-145 [facility] Comment on above: Performed By: #### S ODIUM, WHOLE BLOOD ####[facility] RESPIRATORY [id number] [place] [address] [place] TROPONIN Ion 04-24-2023 Troponin I.cardiac [Mass/Vol] 34.92 ng/mL Critically high 0.00-0.04 [facility] Comment on above: Result Comment: Prev ious result verified on 04/23/2023 2259 on specimen/case [id number] called with component Troponin I for procedure Troponin I with value 22.65 ng/mL. Performed By: #### L [id number] ####[facility] ([facility])[address] [place] [address] 30on 04-23-2023 30 Normal [facility] 30 Normal [facility] AMYLASEon 04-23-2023 Amylase [Catalytic activity/Vol] 86 U/L Normal 29-103 [facility] Comment on above: Performed By: #### L [id number] ####[facility] ([facility])[address] [place] [address] APTTon 04-23-2023 ACTIVATED PARTIAL THROMBOPLASTIN TIME IN PPP BY COAGULATION ASSAY 45.1 Seconds High 25.0-35.0 [facility] Comment on above: Result Comment: Clin ical significance of the APTT is questionable in the presence of heparin. Performed By: #### L [id number] ####[facility] ([facility])[address] [place] [address] ACTIVATED PARTIAL THROMBOPLASTIN TIME IN PPP BY COAGULATION ASSAY 49.0 Seconds High 25.0-35.0 [facility] Comment on above: Result Comment: Clin ical significance of the APTT is questionable in the presence of heparin. Performed By: #### L [id number] ####[facility] ([facility])[address] [place] [address] ARTERIAL BLOOD GAS WITH IONI ZED CALCIUMon 04-23-2023 Base excess Calc (Bld) [Moles/Vol] -16.66376 mmol/L Low -2.0-3.0 [facility] Comment on above: Performed By: #### L [id number] ####[facility] RESPIRATORY [id number] [place] [address] [place] CALCIUM IONIZED (MMOL/L) IN BLOOD 1.15 mmol/L Normal 1.15-1.33 [facility] Comment on above: Performed By: #### L [id number] ####[facility] RESPIRATORY [id number] [place] [address] [place] CO2 (Bld) [Partial pressure] 20 mm[Hg] Invalid Interpretation Code 35-48 [facility] Comment on above: Performed By: #### L [id number] ####[facility] RESPIRATORY [id number] [place], [place] [address] HCO3 (Bld) [Moles/Vol] 8.8 mmol/L Low 21.0-28.0 [facility] Comment on above: Performed By: #### L [id number] ####[facility] RESPIRATORY [id number] [place] [address] [facility] LPM 2 Normal [facility] Comment on above: Performed By: #### L [id number] ####[facility] RESPIRATORY [id number] [place], [place] [address] Oxygen (Bld) [Partial pressure] 67 mm[Hg] Low 83-100 [facility] Comment on above: Performed By: #### L [id number] ####[facility] RESPIRATORY [id number] [place], [place] [address] OXYGEN SATURATION (%) IN ARTERIAL BLOOD 93.6 % Low 94.0-98.0 [facility] Comment on above: Performed By: #### L [id number] ####[facility] RESPIRATORY [id number] [address] pH (Bld) 7.25 [pH] Low 7.35-7.45 [facility] Comment on above: Performed By: #### L [id number] ####[facility] RESPIRATORY [id number] [address] SOURCE OF OXYGEN Nasal cannula Normal [facility] Tex[facility] Comment on above: Performed By: #### L [id number] ####[facility] RESPIRATORY [id number] [place] [address] [facility] Base excess Calc (Bld) [Moles/Vol] -15.19242 mmol/L Low -2.0-3.0 [facility] Comment on above: Order Comment: On ar rival to CVU Performed By: #### L [id number] ####[facility] RESPIRATORY [id number] [place], [place] [address] CALCIUM IONIZED (MMOL/L) IN BLOOD 1.16 mmol/L Normal 1.15-1.33 [facility] Comment on above: Order Comment: On ar rival to CVU Performed By: #### L [id number] ####[facility] RESPIRATORY [id number] [place] [address] [facility] CO2 (Bld) [Partial pressure] 21 mm[Hg] Invalid Interpretation Code 35-48 [facility] Comment on above: Order Comment: On ar rival to CVU Performed By: #### L [id number] ####[facility] RESPIRATORY [id number] [place] [address] [facility] HCO3 (Bld) [Moles/Vol] 9.6 mmol/L Low 21.0-28.0 [facility] Comment on above: Order Comment: On ar rival to CVU Performed By: #### L [id number] ####[facility] RESPIRATORY [id number] [place] [address] [facility] Oxygen (Bld) [Partial pressure] 63 mm[Hg] Low 83-100 [facility] Comment on above: Order Comment: On ar rival to CVU Performed By: #### L [id number] ####[facility] RESPIRATORY [id number] [place] [address] [facility] OXYGEN SATURATION (%) IN ARTERIAL BLOOD 92.2 % Low 94.0-98.0 [facility] Comment on above: Order Comment: On ar rival to CVU Performed By: #### L [id number] ####[facility] RESPIRATORY [id number] [place] [address] [facility] pH (Bld) 7.27 [pH] Low 7.35-7.45 [facility] Comment on above: Order Comment: On ar rival to CVU Performed By: #### L [id number] ####[facility] RESPIRATORY [id number] [place] [address] [facility] SOURCE OF OXYGEN Nasal cannula Normal Un[facility] Comment on above: Order Comment: On ar rival to CVU Performed By: #### L [id number] ####[facility] RESPIRATORY [id number] [place] [address] [facility] Anesthesiaon 04-23-2023 Anesthesia [id number] Gui Ortiz 1955 M Date Provider Department Center 04/23/2023 KAUSHAL FINLEY [facility] SICU None Family History Family history unknown: Yes Normal [facility] BASIC METABOLIC PANELon 11-0 Anion gap [Moles/Vol] 10 mmol/L Normal 7-20 [facility] Comment on above: Performed By: #### L [id number] ####[facility] [address] Calcium [Mass/Vol] 8.4 mg/dL Low 8.6-10.3 [facility] Comment on above: Performed By: #### L [id number] ####[facility] [place] [address] Chloride [Moles/Vol] 114 mmol/L High 98-107 [facility] Comment on above: Performed By: #### L [id number] ####[facility] ([facility])[address] [place] [address] CO2 [Moles/Vol] 25 mmol/L Normal 21-31 [facility] Comment on above: Performed By: #### L [id number] ####[facility] ([facility])[address] [place] [address] Creatinine [Mass/Vol] 0.86 mg/dL Normal 0.70-1.30 [facility] Comment on above: Performed By: #### L [id number] ####[facility] ([facility])[address] [address] GLOMERULAR FILTRATION RATE ML/MIN/1.73 SQ M.PREDICTED 93.7 mL/min/1.73m*2 Normal >60.0 [facility] Comment on above: Result Comment: The [facility]???s estimated glomerular filtration rate (eGFR) will [...] of individuals. Performed By: #### L [id number] ####[facility] ([facility])[address] [place] [address] Glucose [Mass/Vol] 86 mg/dL Normal 70-100 [facility] Comment on above: Performed By: #### L [id number] ####[facility] ([facility])[address] [place] [address] Potassium [Moles/Vol] 3.9 mmol/L Normal 3.5-5.1 [facility] Comment on above: Performed By: #### L [id number] ####[facility] ([facility])[address] [place] [address] Sodium [Moles/Vol] 145 mmol/L Normal 136-145 [facility] Comment on above: Performed By: #### L [id number] ####[facility] ([facility])[address] [place] [address] Urea nitrogen [Mass/Vol] 19 mg/dL Normal 7-25 [facility] Comment on above: Performed By: #### L [id number] ####[facility] ([facility])[address] [place] [address] UREA NITROGEN/CREATININ E (MASS RATIO) IN SER/PLAS 22.1 Normal [facility] Comment on above: Performed By: #### L [id number] ####[facility] ([facility])[address] [place] [address] CALCIUM, IONIZEDon 3 CALCIUM IONIZED (MMOL/L) IN BLOOD 1.21 mmol/L Normal 1.15-1.33 [facility] Comment on above: Performed By: #### C ALCIUM, IONIZED ####[facility] RESPIRATORY [id number] [place] [address] [place] CALCIUM IONIZED (MMOL/L) IN BLOOD 1.19 mmol/L Normal 1.15-1.33 [facility] Comment on above: Performed By: #### C ALCIUM, IONIZED ####[facility] RESPIRATORY [id number] [place] [address] [facility] CALCIUM IONIZED (MMOL/L) IN BLOOD 1.07 mmol/L Low 1.15-1.33 [facility] Comment on above: Performed By: #### C ALCIUM, IONIZED ####[facility] RESPIRATORY [id number] [place] [address] [facility] CBCon 04-23-2023 Erythrocyte distribution width (RBC) [Ratio] 13.3 % Normal 11.5-15.0 [facility] Comment on above: Performed By: #### L [id number] ####[facility] ([facility])[address] [place] [address] ERYTHROCYTE MEAN CORPUSCULAR HEMOGLOBIN CONCENTRATION (G/DL) BY AUTOMATED 34.2 g/dL Normal 32.0-35.0 [facility] Comment on above: Performed By: #### L [id number] ####[facility] ([facility])[address] [place] [address] Hematocrit (Bld) [Volume fraction] 22.5 % Low 39.0-55.0 [facility] Comment on above: Performed By: #### L [id number] ####[facility] [place] [address] Hemoglobin (Bld) [Mass/Vol] 7.7 g/dL Low 13.0-17.0 [facility] Comment on above: Result Comment: Resu lts checked Performed By: #### L [id number] ####[facility] ([facility])[address] [place] [address] IMMATURE PLATELET FRACTION % 2.5 % Normal 0.8-6.3 [facility] Comment on above: Performed By: #### L [id number] ####[facility] ([facility])[address] [place] [address] MCH (RBC) [Entitic mass] 31.3 pg Normal 27.0-33.0 [facility] Comment on above: Performed By: #### L [id number] ####[facility] ([facility])[address] [place] [address] MCV (RBC) [Entitic vol] 91.5 fL Normal 82.0-98.0 [facility] Comment on above: Performed By: #### L [id number] ####[facility] ([facility])[address] [place] [address] PLATELETS (10*3/UL) IN BLOOD AUTOMATED COUNT 80 10*3/uL Low 150-400 [facility] Comment on above: Result Comment: Plt est 74 ok Performed By: #### L [id number] ####[facility] ([facility])[address] [place] [address] RBC (Bld) [#/Vol] 2.46 10*6/uL Low 4.20-5.70 [facility] Comment on above: Performed By: #### L [id number] ####[facility] ([facility])[place] [place] [address] WBC (Bld) [#/Vol] 7.84 10*3/uL Normal 4.00-10.60 [facility] Comment on above: Performed By: #### L [id number] ####[facility] ([facility])[address] [place] [address] CBC WITH AUTO DIFFERENTIALon 04-23-2023 Erythrocyte distribution width (RBC) [Ratio] 14.0 % Normal 11.5-15.0 [facility] Comment on above: Performed By: #### L [id number] ####[facility] ([facility])[address] [place] [address] ERYTHROCYTE MEAN CORPUSCULAR HEMOGLOBIN CONCENTRATION (G/DL) BY AUTOMATED 33.9 g/dL Normal 32.0-35.0 [facility] Comment on above: Performed By: #### L [id number] ####[facility] ([facility])[address] [place] [address] Hematocrit (Bld) [Volume fraction] 18.0 % Low 39.0-55.0 [facility] Comment on above: Performed By: #### L [id number] ####[facility] ([facility])[address] [place] [address] Hemoglobin (Bld) [Mass/Vol] 6.1 g/dL Low 13.0-17.0 [facility] Comment on above: Performed By: #### L [id number] ####[facility] ([facility])[address] [place] [address] IMMATURE PLATELET FRACTION % 3.6 % Normal 0.8-6.3 [facility] Comment on above: Performed By: #### L [id number] ####[facility] ([facility])[address] [place] [address] MCH (RBC) [Entitic mass] 31.4 pg Normal 27.0-33.0 [facility] Comment on above: Performed By: #### L [id number] ####[facility] ([facility])[address] [place] [address] MCV (RBC) [Entitic vol] 92.8 fL Normal 82.0-98.0 [facility] Comment on above: Performed By: #### L [id number] ####[facility] ([facility])[address] [place] [address] NRBC (PER 100 WBCS) BY AUTOMATED COUNT 0.0 % Normal 0 [facility] Comment on above: Performed By: #### L [id number] ####[facility] ([facility])[address] [place] [address] PLATELETS (10*3/UL) IN BLOOD AUTOMATED COUNT 68 10*3/uL Low 150-400 [facility] Comment on above: Performed By: #### L [id number] ####[facility] ([facility])[address] [place] [address] RBC (Bld) [#/Vol] 1.94 10*6/uL Low 4.20-5.70 [facility] Comment on above: Performed By: #### L [id number] ####[facility] ([facility])[address] [place] [address] WBC (Bld) [#/Vol] 12.79 10*3/uL High 4.00-10.60 [facility] Comment on above: Performed By: #### L [id number] ####[facility] [place] [address] CK TOTAL AND CKMBon 04-23-20 CREATINE KINASE (U/L) IN SER/PLAS 4110.0 U/L High 30.0-223.0 [facility] Comment on above: Performed By: #### L [id number] ####[facility] ([facility])[address] [place] [address] CREATINE KINASE MB/CREATINE KINASE TOTAL BY CALCULATION 2.9 High <=1.9 [facility] Comment on above: Performed By: #### L [id number] ####[facility] ([facility])[address] [place] [address] CREATINE KINASE-MB (NG/ML) IN SER/PLAS 122.5 ng/mL High 0.0-5.0 [facility] Comment on above: Performed By: #### L [id number] ####[facility] ([facility])[address] [place] [address] CO-OXIMETRYon 04-23-2023 CARBOXYHEMOGLOBIN/ HEMOGLOBIN TOTAL % IN BLOOD 1.3 % Normal [facility] Comment on above: Performed By: #### L [id number] ####[facility] RESPIRATORY [id number] [place] [address] [place] Hemoglobin (Bld) [Mass/Vol] 7.8 g/dL Normal [facility] Comment on above: Performed By: #### L [id number] ####[facility] RESPIRATORY [id number] [place] [address] [place] METHEMOGLOBIN/100 IN BLOOD 1.0 % Normal 0.0-1.5 [facility] Comment on above: Performed By: #### L [id number] ####[facility] RESPIRATORY [id number] [place] [address] [place] Oxygen saturation in Blood 65.8 % Normal [facility] Comment on above: Performed By: #### L [id number] ####[facility] RESPIRATORY [id number] [place] [address] [facility] OXYGENATED HEMOGLOBIN IN BLOOD 64.2 % Normal [facility] Comment on above: Performed By: #### L [id number] ####[facility] RESPIRATORY [id number] [place] [address] [facility] COMPREHENSIVE METABOLIC PANE Roddy 04-23-2023 Albumin [Mass/Vol] 3.6 g/dL Normal 3.5-5.7 [facility] Comment on above: Performed By: #### L [id number] ####[facility] ([facility])[address] [place] [address] ALP [Catalytic activity/Vol] 34 U/L Normal 34-104 [facility] Comment on above: Performed By: #### L [id number] ####[facility] ([facility]ER)[address] [place] [address] ALT [Catalytic activity/Vol] 22 U/L Normal 7-52 [facility] Comment on above: Performed By: #### L [id number] ####[facility] ([facility]ER)[address] [place] [address] Anion gap [Moles/Vol] 21 mmol/L High 7-20 [facility] Comment on above: Performed By: #### L [id number] ####[facility] ([facility]ER)[address] [place] [address] AST [Catalytic activity/Vol] 132 U/L High 13-39 [facility] Comment on above: Performed By: #### L [id number] ####[facility] ([facility]ER)[address] [place] [address] Bilirubin [Mass/Vol] 0.5 mg/dL Normal 0.3-1.0 [facility] Comment on above: Performed By: #### L [id number] ####[facility] ([facility]ER)[address] [place] [address] Calcium [Mass/Vol] 8.1 mg/dL Low 8.6-10.3 [facility] Comment on above: Performed By: #### L [id number] ####[facility] ([facility]ER)[address] [place] [address] Chloride [Moles/Vol] 109 mmol/L High 98-107 [facility] Comment on above: Performed By: #### L [id number] ####[facility] ([facility]ER)[address] [place] [address] CO2 [Moles/Vol] 20 mmol/L Low 21-31 [facility] Comment on above: Performed By: #### L [id number] ####[facility] ([facility] [place] [address] Creatinine [Mass/Vol] 1.16 mg/dL Normal 0.70-1.30 [facility] Comment on above: Performed By: #### L [id number] ####[facility] ([facility] [place] [address] GLOMERULAR FILTRATION RATE ML/MIN/1.73 SQ M.PREDICTED 68.2 mL/min/1.73m*2 Normal >60.0 [facility] Comment on above: Result Comment: The [facility]???s estimated glomerular filtration rate (eGFR) will [...] of individuals. Performed By: #### L [id number] ####[facility] ([facility]))[address] [place] [address] Glucose [Mass/Vol] 255 mg/dL High 70-100 [facility] Comment on above: Performed By: #### L [id number] ####[facility] ([facility]))[address] [place] [address] Potassium [Moles/Vol] 4.4 mmol/L Normal 3.5-5.1 [facility] Comment on above: Performed By: #### L [id number] ####[facility] ([facility])[address] [place] [address] Protein [Mass/Vol] 4.7 g/dL Low 6.0-8.3 [facility] Comment on above: Performed By: #### L [id number] ####[facility] ([facility])[address] [place] [address] Sodium [Moles/Vol] 146 mmol/L High 136-145 [facility] Comment on above: Performed By: #### L [id number] ####[facility] ([facility])[address] [place] [address] Urea nitrogen [Mass/Vol] 21 mg/dL Normal 7-25 [facility] Comment on above: Performed By: #### L [id number] ####[facility] ([facility])[address] [place] [address] UREA NITROGEN/CREATININ E (MASS RATIO) IN SER/PLAS 18.1 Normal [facility] Comment on above: Performed By: #### L [id number] ####[facility] ([facility])[address] [place] [address] CONSULTon 04-23-2023 CONSULT Normal [facility] CONSULT Normal [facility] FIBRINOGENon 04-23-2023 Magnesium [Mass/Vol] 258 mg/dL Normal 150-425 [facility] Comment on above: Performed By: #### L [id number] ####[facility] ([facility])[address] [place] [address] LACTIC ACID WITH 4 HOUR REFL EXon 04-23-2023 LACTATE (MMOL/L) IN SER/PLAS 12.1 mmol/L Critically high 0.5-2.2 [facility] Comment on above: Result Comment: Prev ious result verified on 04/22/2023 2146 on specimen/case [id number] called with component Lactate for procedure Lactic acid, plasma with value 2.6 mmol/L. Performed By: #### L [id number] ####[facility] ([facility])[address] [place] [address] LACTIC ACID, PLASMAon 2022 LACTATE (MMOL/L) IN SER/PLAS 2.2 mmol/L Normal 0.5-2.2 [facility] Comment on above: Performed By: #### L [id number] ####[facility] ([facility])[address] [place] [address] LIPASEon 04-23-2023 LIPASE (U/L) IN SER/PLAS 12 U/L Normal - [facility] Comment on above: Performed By: #### L [id number] ####[facility] ([facility])[address] [place] [address] MAGNESIUMon 04-23-2023 Magnesium [Mass/Vol] 1.8 mg/dL Low 1.9-2.7 [facility] Comment on above: Performed By: #### L [id number] ####[facility] ([facility])[address] [place] [address] MANUAL DIFFERENTIALon 2022 BASOPHILS (10*3/UL) IN BLOOD BY CALCULATION 0.01 10*3/uL Normal 0.00-0.20 [facility] Comment on above: Performed By: #### L [id number] ####[facility] ([facility])[address] [place] [address] BASOPHILS/100 LEUKOCYTES IN BLOOD BY AUTOMATED COUNT 0.1 % Normal 0.0-1.0 [facility] Comment on above: Performed By: #### L [id number] ####[facility] ([facility])[address] [place] [address] EOSINOPHILS (10*3/UL) IN BLOOD BY CALCULATION 0.00 10*3/uL Normal 0.00-0.50 [facility] Comment on above: Performed By: #### L [id number] ####[facility] ([facility])[address] [place] [address] EOSINOPHILS/100 LEUKOCYTES IN BLOOD BY AUTOMATED COUNT 0.0 % Normal 0.0-6.0 [facility] Comment on above: Performed By: #### L [id number] ####[facility] ([facility])[address] [place] [address] IMMATURE GRANULOCYTES (10*3/UL) IN BLOOD BY CALCULATION 0.09 10*3/uL Normal 0.00-0.20 [facility] Comment on above: Performed By: #### L [id number] ####[facility] ([facility])[address] [place] [address] IMMATURE GRANULOCYTES/100 LEUKOCYTES IN BLOOD BY AUTOMATED COUNT 0.7 % Normal 0.0-1.0 [facility] Comment on above: Performed By: #### L [id number] ####[facility] ([facility])[address] [place] [address] LYMPHOCYTES (10*3/UL) IN BLOOD BY CALCULATION 0.72 10*3/uL Low 1.20-4.00 [facility] Comment on above: Performed By: #### L [id number] ####[facility] ([facility])[address] [place] [address] LYMPHOCYTES/100 LEUKOCYTES IN BLOOD BY AUTOMATED COUNT 5.6 % Low 20.0-45.0 [facility] Comment on above: Performed By: #### L [id number] ####[facility] ([facility])[address] [place] [address] MONOCYTES (10*3/UL) IN BLOOD BY CALCUATION 0.70 10*3/uL Normal 0.10-1.00 [facility] Comment on above: Performed By: #### L [id number] ####[facility] ([facility])[address] [place] [address] MONOCYTES/100 LEUKOCYTES IN BLOOD BY AUTOMATED COUNT 5.5 % Normal 5.0-12.0 [facility] Comment on above: Performed By: #### L [id number] ####[facility] ([facility])[address] [place] [address] NEUTROPHILS (10*3/UL) IN BLOOD BY CALCULATION 11.3 10*3/uL High 1.6-7.6 [facility] Comment on above: Performed By: #### L [id number] ####[facility] ([facility])[address] [place] [address] NEUTROPHILS/100 LEUKOCYTES IN BLOOD BY AUTOMATED COUNT 88.1 % High 40.0-72.0 [facility] Comment on above: Performed By: #### L [id number] ####[facility] ([facility])[address] [place] [address] MYOGLOBIN, SERUMon 3 MYOGLOBIN (NG/ML) IN SER/PLAS 1832 ng/mL High 0-90 [facility] Comment on above: Result Comment: A DO UBLING OF VALUES FROM SERIAL BLOOD COLLECTIONS (1 - 2 HOURS APART) IS MORE INDICATIVE OF A M.I. THAN THE ABSOLUTE VALUE. Performed By: #### L [id number] ####[facility] ([facility])[address] [place] [address] PHOSPHORUSon 04-23-2023 Magnesium [Mass/Vol] 3.1 mg/dL Normal 2.5-5.0 [facility] Comment on above: Performed By: #### L [id number] ####[facility] ([facility])[address] [place] [address] POCT GLUCOSE METER UNSOLICIT ED RESULTSon 04-23-2023 Glucose [Mass/Vol] 267 mg/dL High 70-105 [facility] Comment on above: Order Comment: Waive d Testing in the ED is performed under the ED CLIA certificate #[id number]. Result Comment: than [email or web address] Performed By: #### L [id number] ####[facility] ([facility])[address] [place] [address] Glucose [Mass/Vol] 138 mg/dL High 70-105 [facility] [place] Comment on above: Order Comment: Waive d Testing in the ED is performed under the ED CLIA certificate #[id number]. Result Comment: nhay man Performed By: #### L [id number] ####[facility] ([facility])[address] [place] [address] Glucose [Mass/Vol] 92 mg/dL Normal 70-105 [facility] [place] Comment on above: Order Comment: Waive d Testing in the ED is performed under the ED CLIA certificate #[id number]. Result Comment: nhay man Performed By: #### L [id number] ####[facility] ([facility])[address] [place] [address] Glucose [Mass/Vol] 101 mg/dL Normal 70-105 [facility] [place] Comment on above: Order Comment: Waive d Testing in the ED is performed under the ED CLIA certificate #[id number]. Result Comment: [email or web address] Performed By: #### L [id number] ####[facility] ([facility])[address] [place] [address] Glucose [Mass/Vol] 91 mg/dL Normal 70-105 [facility] [place] Comment on above: Order Comment: Waive d Testing in the ED is performed under the ED CLIA certificate #[id number]. Result Comment: [email or web address] Performed By: #### L [id number] ####[facility] ([facility])[address] [place] [address] Glucose [Mass/Vol] 114 mg/dL High 70-105 [facility] [place] Comment on above: Order Comment: Waive d Testing in the ED is performed under the ED CLIA certificate #[id number]. Result Comment: [email or web address] Performed By: #### L [id number] ####[facility] ([facility])[address] [place] [address] Glucose [Mass/Vol] 123 mg/dL High 70-105 [facility] [place] Comment on above: Order Comment: Waive d Testing in the ED is performed under the ED CLIA certificate #[id number]. Result Comment: [email or web address] Performed By: #### L [id number] ####[facility] ([facility])[address] [place] [address] Glucose [Mass/Vol] 142 mg/dL High 70-105 [facility] [place] Comment on above: Order Comment: Waive d Testing in the ED is performed under the ED CLIA certificate #[id number]. Result Comment: [email or web address] Performed By: #### L [id number] ####[facility] ([facility])[address] [place] [address] Glucose [Mass/Vol] 152 mg/dL High 70-105 [facility] [place] Comment on above: Order Comment: Waive d Testing in the ED is performed under the ED CLIA certificate #[id number]. Result Comment: [email or web address] [email or web address] Performed By: #### L [id number] ####[facility] ([facility])[address] [place] [address] Glucose [Mass/Vol] 167 mg/dL High 70-105 [facility] [place] Comment on above: Order Comment: Waive d Testing in the ED is performed under the ED CLIA certificate #[id number]. Result Comment: [email or web address] Performed By: #### L [id number] ####[facility] ([facility])[address] [place] [address] POTASSIUM, WHOLE BLOODon Potassium [Moles/Vol] 4.3 mmol/L Normal 3.5-5.1 [facility] Comment on above: Performed By: #### P OTASSIUM, WHOLE BLOOD ####[facility] [id number] [place] [address] [facility] Potassium [Moles/Vol] 4.1 mmol/L Normal 3.5-5.1 [facility] Comment on above: Performed By: #### P OTASSIUM, WHOLE BLOOD ####[facility] [id number] [place] [address] [place] Potassium [Moles/Vol] 4.3 mmol/L Normal 3.5-5.1 [facility] Comment on above: Performed By: #### P OTASSIUM, WHOLE BLOOD ####[facility] [id number] [place] [address] [place] PROTIME-INRon 04-23-2023 INR IN PPP BY COAGULATION ASSAY 1.98 High 0.90-1.10 [facility] Comment on above: Result Comment: [facility] P RECOMMENDED INR FOR WARFARIN THERAPY CONDITION INRPROPHYLAXIS OF VENOUS THROMBOSIS 2-3(HIGH-RISK SURGERY)TREATMENT OF VENOUS THROMBOSIS 2-3TREATMENT OF PULMONARY EMBOLISM 2-3PREVENTION OF SYSTEMIC EMBOLISM: 2-3 ACUTE MYOCARDIAL INFARCTION TISSUE HEART VALVES VALVULAR HEART DISEASE ATRIAL FIBRILLATION RECURRENT SYSTEMIC EMBOLISMMECHANICAL HEART VALVE 2.5-3.5 FROM: ORAL ANTICOAGULANTS. MECHANISM OF ACTION, CLINICAL EFFECTIVENESS, AND OPTIMAL THERAPEUTIC RANGE. CHEST 1995;108:231S-246S. Performed By: #### L [id number] ####[facility] ([facility]AKER)[address] [place] [address] PROTHROMBIN TIME (PT) IN PPP BY COAGULATION ASSAY 22.6 Seconds High 12.3-14.8 [facility] Comment on above: Performed By: #### L [id number] ####[facility] ([facility])[address] [place] [address] INR IN PPP BY COAGULATION ASSAY 1.47 High 0.90-1.10 [facility] Comment on above: Result Comment: [facility] P RECOMMENDED INR FOR WARFARIN THERAPY CONDITION INRPROPHYLAXIS OF VENOUS THROMBOSIS 2-3(HIGH-RISK SURGERY)TREATMENT OF VENOUS THROMBOSIS 2-3TREATMENT OF PULMONARY EMBOLISM 2-3PREVENTION OF SYSTEMIC EMBOLISM: 2-3 ACUTE MYOCARDIAL INFARCTION TISSUE HEART VALVES VALVULAR HEART DISEASE ATRIAL FIBRILLATION RECURRENT SYSTEMIC EMBOLISMMECHANICAL HEART VALVE 2.5-3.5 FROM: ORAL ANTICOAGULANTS. MECHANISM OF ACTION, CLINICAL EFFECTIVENESS, AND OPTIMAL THERAPEUTIC RANGE. CHEST 1995;108:231S-246S. Performed By: #### L [id number] ####[facility] ([facility])[address] [place] [address] PROTHROMBIN TIME (PT) IN PPP BY COAGULATION ASSAY 17.9 Seconds High 12.3-14.8 [facility] Comment on above: Performed By: #### L [id number] ####[facility] ([facility])[address] [place] [address] SODIUM, WHOLE BLOODon 2022 SODIUM, WHOLE BLOOD 141 Normal 136-145 [facility] Comment on above: Performed By: #### S ODIUM, WHOLE BLOOD ####[facility] [id number] [place] [address] [place] SODIUM, WHOLE BLOOD 143 Normal 136-145 [facility] Comment on above: Performed By: #### S ODIUM, WHOLE BLOOD ####[facility] [id number] [place] [address] [place] SODIUM, WHOLE BLOOD 144 Normal 136-145 [facility] Comment on above: Performed By: #### S ODIUM, WHOLE BLOOD ####[facility] [id number] [place] [address] [place] TROPONIN Ion 04-23-2023 Troponin I.cardiac [Mass/Vol] 22.65 ng/mL Critically high 0.00-0.04 [facility] Comment on above: Result Comment: JYOTI CORONADO INITIAL CRITICAL HIGH; RESPUN AND RETESTED Performed By: #### L [id number] ####[facility] ([facility]ER)[address] [place] [address] ANESon 11-06-2023 ANES Normal [facility] APTTon 04-22-2023 ACTIVATED PARTIAL THROMBOPLASTIN TIME IN PPP BY COAGULATION ASSAY 43.4 Seconds High 25.0-35.0 [facility] Comment on above: Result Comment: Clin ical significance of the APTT is questionable in the presence of heparin. Performed By: #### L [id number] ####[facility] ([facility])[address] [place] [address] ACTIVATED PARTIAL THROMBOPLASTIN TIME IN PPP BY COAGULATION ASSAY 36.9 Seconds High 25.0-35.0 [facility] Comment on above: Result Comment: Clin ical significance of the APTT is questionable in the presence of heparin. Performed By: #### L [id number] ####[facility] ([facility])[address] [place] [address] ACTIVATED PARTIAL THROMBOPLASTIN TIME IN PPP BY COAGULATION ASSAY 40.3 Seconds High 25.0-35.0 [facility] Comment on above: Order Comment: Pre-o p diagnosis:NSTEMI (non-ST elevated myocardial infarction) (CMS/HCC) [I21.4]Acute non-ST segment elevation myocardial infarction (CMS/HCC) [I21.4]Coronary artery disease, unspecified vessel or lesion type, unspecified whether angina present, unspecified whether north fork or 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] Result Comment: Clin ical significance of the APTT is questionable in the presence of heparin. Performed By: #### L [id number] ####[facility] ([facility])[address] [place] [address] BASIC METABOLIC PANELon 11-0 Anion gap [Moles/Vol] 9 mmol/L Normal 7-20 [facility] Comment on above: Performed By: #### L [id number] ####[facility] ([facility])[address] [place] [address] Calcium [Mass/Vol] 7.9 mg/dL Low 8.6-10.3 [facility] Comment on above: Performed By: #### L [id number] ####[facility] ([facility])[address] [place] [address] Chloride [Moles/Vol] 114 mmol/L High 98-107 [facility] Comment on above: Performed By: #### L [id number] ####[facility] [place] [address] CO2 [Moles/Vol] 25 mmol/L Normal 21-31 [facility] Comment on above: Performed By: #### L [id number] ####[facility] ([facility] [place] [address] Creatinine [Mass/Vol] 0.86 mg/dL Normal 0.70-1.30 [facility] Comment on above: Performed By: #### L [id number] ####[facility] ([facility])[address] [place] [address] GLOMERULAR FILTRATION RATE ML/MIN/1.73 SQ M.PREDICTED 93.7 mL/min/1.73m*2 Normal >60.0 [facility] Comment on above: Result Comment: The [facility]???s estimated glomerular filtration rate (eGFR) will [...] of individuals. Performed By: #### L [id number] ####[facility] (BEAKER)[address] [place] [address] Glucose [Mass/Vol] 162 mg/dL High 70-100 [facility] Comment on above: Performed By: #### L [id number] ####[facility] ([facility]ER)[address] [place] [address] Potassium [Moles/Vol] 4.2 mmol/L Normal 3.5-5.1 [facility] Comment on above: Performed By: #### L [id number] ####[facility] ([facility]ER)[address] [place] [address] Sodium [Moles/Vol] 144 mmol/L Normal 136-145 [facility] Comment on above: Performed By: #### L [id number] ####[facility] ([facility]ER)[address] [place] [address] Urea nitrogen [Mass/Vol] 19 mg/dL Normal 7-25 [facility] Comment on above: Performed By: #### L [id number] ####[facility] ([facility])[address] [place] [address] UREA NITROGEN/CREATININ E (MASS RATIO) IN SER/PLAS 22.1 Normal [facility] Comment on above: Performed By: #### L [id number] ####[facility] ([facility])[address] [place] [address] Anion gap [Moles/Vol] 7 mmol/L Normal 7-20 [facility] Comment on above: Performed By: #### L [id number] ####[facility] (BE[facility]ER)[address] [place] [address] Calcium [Mass/Vol] 8.2 mg/dL Low 8.6-10.3 [facility] Comment on above: Performed By: #### L [id number] ####[facility] (BE[facility]ER)[address] [place] [address] Chloride [Moles/Vol] 114 mmol/L High 98-107 [facility] Comment on above: Performed By: #### L [id number] ####[facility] ([facility]ER)[address] [place] [address] CO2 [Moles/Vol] 29 mmol/L Normal 21-31 [facility] Comment on above: Performed By: #### L [id number] ####[facility] ([facility]ER)[address] [place] [address] Creatinine [Mass/Vol] 0.77 mg/dL Normal 0.70-1.30 [facility] Comment on above: Performed By: #### L [id number] ####[facility] ([facility]ER)[address] [place] [address] GLOMERULAR FILTRATION RATE ML/MIN/1.73 SQ M.PREDICTED 96.9 mL/min/1.73m*2 Normal >60.0 [facility] Comment on above: Result Comment: The [facility]???s estimated glomerular filtration rate (eGFR) will [...] of individuals. Performed By: #### L [id number] ####[facility] ([facility])[address] [place] [address] Glucose [Mass/Vol] 142 mg/dL High 70-100 [facility] Comment on above: Performed By: #### L [id number] ####[facility] ([facility])[address] [place] [address] Potassium [Moles/Vol] 3.7 mmol/L Normal 3.5-5.1 [facility] Comment on above: Performed By: #### L [id number] ####[facility] ([facility])[address] [place] [address] Sodium [Moles/Vol] 146 mmol/L High 136-145 [facility] Comment on above: Performed By: #### L [id number] ####[facility] ([facility])[address] [place] [address] Urea nitrogen [Mass/Vol] 18 mg/dL Normal 7-25 [facility] Comment on above: Performed By: #### L [id number] ####[facility] ([facility])[address] [place] [address] UREA NITROGEN/CREATININ E (MASS RATIO) IN SER/PLAS 23.4 Normal [facility] Comment on above: Performed By: #### L [id number] ####[facility] ([facility])[address] [place] [address] Anion gap [Moles/Vol] 7 mmol/L Normal 7-20 [facility] Comment on above: Order Comment: Pre-o p diagnosis:NSTEMI (non-ST elevated myocardial infarction) (CMS/HCC) [I21.4]Acute non-ST segment elevation myocardial infarction (CMS/HCC) [I21.4]Coronary artery disease, unspecified vessel or lesion type, unspecified whether angina present, unspecified whether north fork or 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] Performed By: #### L [id number] ####[facility] (BEAKER)[address] [place] [address] Calcium [Mass/Vol] 8.5 mg/dL Low 8.6-10.3 [facility] Comment on above: Order Comment: Pre-o p diagnosis:NSTEMI (non-ST elevated myocardial infarction) (CMS/HCC) [I21.4]Acute non-ST segment elevation myocardial infarction (CMS/HCC) [I21.4]Coronary artery disease, unspecified vessel or lesion type, unspecified whether angina present, unspecified whether north fork or 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] Performed By: #### L [id number] ####[facility] (BEAKER)[address] [place] [address] Chloride [Moles/Vol] 116 mmol/L High 98-107 [facility] Comment on above: Order Comment: Pre-o p diagnosis:NSTEMI (non-ST elevated myocardial infarction) (CMS/HCC) [I21.4]Acute non-ST segment elevation myocardial infarction (CMS/HCC) [I21.4]Coronary artery disease, unspecified vessel or lesion type, unspecified whether angina present, unspecified whether north fork or 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] Performed By: #### L [id number] ####[facility] ([facility])[address] [place] [address] CO2 [Moles/Vol] 25 mmol/L Normal 21-31 [facility] Comment on above: Order Comment: Pre-o p diagnosis:NSTEMI (non-ST elevated myocardial infarction) (CMS/HCC) [I21.4]Acute non-ST segment elevation myocardial infarction (CMS/HCC) [I21.4]Coronary artery disease, unspecified vessel or lesion type, unspecified whether angina present, unspecified whether north fork or 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] Performed By: #### L [id number] ####[facility] (BEAKER)[address] [place] [address] Creatinine [Mass/Vol] 0.82 mg/dL Normal 0.70-1.30 [facility] Comment on above: Order Comment: Pre-o p diagnosis:NSTEMI (non-ST elevated myocardial infarction) (CMS/HCC) [I21.4]Acute non-ST segment elevation myocardial infarction (CMS/HCC) [I21.4]Coronary artery disease, unspecified vessel or lesion type, unspecified whether angina present, unspecified whether north fork or 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] Performed By: #### L [id number] ####[facility] ([facility]ER)[address] [place] [address] GLOMERULAR FILTRATION RATE ML/MIN/1.73 SQ M.PREDICTED 95.1 mL/min/1.73m*2 Normal >60.0 [facility] Comment on above: Order Comment: Pre-o p diagnosis:NSTEMI (non-ST elevated myocardial infarction) (CMS/HCC) [I21.4]Acute non-ST segment elevation myocardial infarction (CMS/HCC) [I21.4]Coronary artery disease, unspecified vessel or lesion type, unspecified whether angina present, unspecified whether north fork or 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] Result Comment: The [facility]???s estimated glomerular filtration rate (eGFR) will [...] of individuals. Performed By: #### L [id number] ####[facility] (BE[facility]ER)[address] [place] [address] Glucose [Mass/Vol] 198 mg/dL High 70-100 [facility] Comment on above: Order Comment: Pre-o p diagnosis:NSTEMI (non-ST elevated myocardial infarction) (CMS/HCC) [I21.4]Acute non-ST segment elevation myocardial infarction (CMS/HCC) [I21.4]Coronary artery disease, unspecified vessel or lesion type, unspecified whether angina present, unspecified whether north fork or 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] Performed By: #### L [id number] ####[facility] ([facility])[address] [place] [address] Potassium [Moles/Vol] 3.1 mmol/L Low 3.5-5.1 [facility] Comment on above: Order Comment: Pre-o p diagnosis:NSTEMI (non-ST elevated myocardial infarction) (CMS/HCC) [I21.4]Acute non-ST segment elevation myocardial infarction (CMS/HCC) [I21.4]Coronary artery disease, unspecified vessel or lesion type, unspecified whether angina present, unspecified whether north fork or 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] Performed By: #### L [id number] ####[facility] ([facility])[address] [place] [address] Sodium [Moles/Vol] 145 mmol/L Normal 136-145 [facility] Comment on above: Order Comment: Pre-o p diagnosis:NSTEMI (non-ST elevated myocardial infarction) (CMS/HCC) [I21.4]Acute non-ST segment elevation myocardial infarction (CMS/HCC) [I21.4]Coronary artery disease, unspecified vessel or lesion type, unspecified whether angina present, unspecified whether north fork or 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] Performed By: #### L [id number] ####[facility] ([facility])[address] [place] [address] Urea nitrogen [Mass/Vol] 18 mg/dL Normal 7-25 [facility] Comment on above: Order Comment: Pre-o p diagnosis:NSTEMI (non-ST elevated myocardial infarction) (CMS/HCC) [I21.4]Acute non-ST segment elevation myocardial infarction (CMS/HCC) [I21.4]Coronary artery disease, unspecified vessel or lesion type, unspecified whether angina present, unspecified whether north fork or 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] Performed By: #### L [id number] ####[facility] ([facility])[address] [place] [address] UREA NITROGEN/CREATININ E (MASS RATIO) IN SER/PLAS 22.0 Normal [facility] Comment on above: Order Comment: Pre-o p diagnosis:NSTEMI (non-ST elevated myocardial infarction) (CMS/HCC) [I21.4]Acute non-ST segment elevation myocardial infarction (CMS/HCC) [I21.4]Coronary artery disease, unspecified vessel or lesion type, unspecified whether angina present, unspecified whether north fork or 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] Performed By: #### L [id number] ####[facility] ([facility])[address] [place] [address] CBCon 04-22-2023 Erythrocyte distribution width (RBC) [Ratio] 13.1 % Normal 11.5-15.0 [facility] Comment on above: Performed By: #### L [id number] ####[facility] ([facility])[address] [place] [address] ERYTHROCYTE MEAN CORPUSCULAR HEMOGLOBIN CONCENTRATION (G/DL) BY AUTOMATED 34.7 g/dL Normal 32.0-35.0 [facility] Comment on above: Performed By: #### L [id number] ####[facility] ([facility])[address] [place] [address] Hematocrit (Bld) [Volume fraction] 32.6 % Low 39.0-55.0 [facility] Comment on above: Performed By: #### L [id number] ####[facility] (BEAKER)[address] [place] [address] Hemoglobin (Bld) [Mass/Vol] 11.3 g/dL Low 13.0-17.0 [facility] Comment on above: Performed By: #### L [id number] ####[facility] (BEAKER)[address] [place] [address] MCH (RBC) [Entitic mass] 31.1 pg Normal 27.0-33.0 [facility] Comment on above: Performed By: #### L [id number] ####[facility] (BEAKER)[address] [place] [address] MCV (RBC) [Entitic vol] 89.8 fL Normal 82.0-98.0 [facility] Comment on above: Performed By: #### L [id number] ####[facility] (BEAKER)[address] [place] [address] PLATELETS (10*3/UL) IN BLOOD AUTOMATED COUNT 107 10*3/uL Low 150-400 [facility] Comment on above: Performed By: #### L [id number] ####[facility] ([facility])[address] [place] [address] RBC (Bld) [#/Vol] 3.63 10*6/uL Low 4.20-5.70 [facility] Comment on above: Performed By: #### L [id number] ####[facility] ([facility] [place] [address] WBC (Bld) [#/Vol] 18.54 10*3/uL High 4.00-10.60 [facility] Comment on above: Performed By: #### L [id number] ####[facility] ([facility] [place] [address] Erythrocyte distribution width (RBC) [Ratio] 13.0 % Normal 11.5-15.0 [facility] Comment on above: Order Comment: Pre-o p diagnosis:NSTEMI (non-ST elevated myocardial infarction) (CMS/HCC) [I21.4]Acute non-ST segment elevation myocardial infarction (CMS/HCC) [I21.4]Coronary artery disease, unspecified vessel or lesion type, unspecified whether angina present, unspecified whether north fork or 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] Performed By: #### L [id number] ####[facility] (BEAKER)[address] [place] [address] ERYTHROCYTE MEAN CORPUSCULAR HEMOGLOBIN CONCENTRATION (G/DL) BY AUTOMATED 34.5 g/dL Normal 32.0-35.0 [facility] Comment on above: Order Comment: Pre-o p diagnosis:NSTEMI (non-ST elevated myocardial infarction) (CMS/HCC) [I21.4]Acute non-ST segment elevation myocardial infarction (CMS/HCC) [I21.4]Coronary artery disease, unspecified vessel or lesion type, unspecified whether angina present, unspecified whether north fork or 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] Performed By: #### L [id number] ####[facility] ([facility])[address] [place] [address] Hematocrit (Bld) [Volume fraction] 26.7 % Low 39.0-55.0 [facility] Comment on above: Order Comment: Pre-o p diagnosis:NSTEMI (non-ST elevated myocardial infarction) (CMS/HCC) [I21.4]Acute non-ST segment elevation myocardial infarction (CMS/HCC) [I21.4]Coronary artery disease, unspecified vessel or lesion type, unspecified whether angina present, unspecified whether north fork or 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] Performed By: #### L [id number] ####[facility] (BEAKER)[address] [place] [address] Hemoglobin (Bld) [Mass/Vol] 9.2 g/dL Low 13.0-17.0 [facility] Comment on above: Order Comment: Pre-o p diagnosis:NSTEMI (non-ST elevated myocardial infarction) (CMS/HCC) [I21.4]Acute non-ST segment elevation myocardial infarction (CMS/HCC) [I21.4]Coronary artery disease, unspecified vessel or lesion type, unspecified whether angina present, unspecified whether north fork or 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] Performed By: #### L [id number] ####[facility] (BEAKER)[address] [place] [address] MCH (RBC) [Entitic mass] 31.4 pg Normal 27.0-33.0 [facility] Comment on above: Order Comment: Pre-o p diagnosis:NSTEMI (non-ST elevated myocardial infarction) (CMS/HCC) [I21.4]Acute non-ST segment elevation myocardial infarction (CMS/HCC) [I21.4]Coronary artery disease, unspecified vessel or lesion type, unspecified whether angina present, unspecified whether north fork or 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] Performed By: #### L [id number] ####[facility] (BEAKER)[address] [place] [address] MCV (RBC) [Entitic vol] 91.1 fL Normal 82.0-98.0 [facility] Comment on above: Order Comment: Pre-o p diagnosis:NSTEMI (non-ST elevated myocardial infarction) (CMS/HCC) [I21.4]Acute non-ST segment elevation myocardial infarction (CMS/HCC) [I21.4]Coronary artery disease, unspecified vessel or lesion type, unspecified whether angina present, unspecified whether north fork or 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] Performed By: #### L [id number] ####[facility] (BEAKER)[address] [place] [address] PLATELETS (10*3/UL) IN BLOOD AUTOMATED COUNT 134 10*3/uL Low 150-400 [facility] Comment on above: Order Comment: Pre-o p diagnosis:NSTEMI (non-ST elevated myocardial infarction) (CMS/HCC) [I21.4]Acute non-ST segment elevation myocardial infarction (CMS/HCC) [I21.4]Coronary artery disease, unspecified vessel or lesion type, unspecified whether angina present, unspecified whether north fork or 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] Performed By: #### L [id number] ####[facility] (BEAKER)[address] [place] [address] RBC (Bld) [#/Vol] 2.93 10*6/uL Low 4.20-5.70 [facility] Comment on above: Order Comment: Pre-o p diagnosis:NSTEMI (non-ST elevated myocardial infarction) (CMS/HCC) [I21.4]Acute non-ST segment elevation myocardial infarction (CMS/HCC) [I21.4]Coronary artery disease, unspecified vessel or lesion type, unspecified whether angina present, unspecified whether north fork or 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] Performed By: #### L [id number] ####[facility] (BEeTelemetry)[address] [place] [address] WBC (Bld) [#/Vol] 21.16 10*3/uL High 4.00-10.60 [facility] Comment on above: Order Comment: Pre-o p diagnosis:NSTEMI (non-ST elevated myocardial infarction) ([facility]) [I21.4]Acute non-ST segment elevation myocardial infarction ([facility]) [I21.4]Coronary artery disease, unspecified vessel or lesion type, unspecified whether angina present, unspecified whether north fork or 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] Performed By: #### L [id number] ####[facility] (eTelemetry)[address] [place] [address] CBC WITH AUTO DIFFERENTIALon 04-22-2023 Basophils (Bld) [#/Vol] 0.01 10*3/uL Normal 0.00-0.20 [facility] Comment on above: Performed By: #### L [id number] ####[facility] (efw-suhl)[address] [place] [address] Basophils/100 WBC (Bld) 0.1 % Normal 0.0-1.0 [facility] Comment on above: Performed By: #### L [id number] ####[facility] (BEeTelemetry)[address] [place] [address] Eosinophils (Bld) [#/Vol] 0.00 10*3/uL Normal 0.00-0.50 [facility] Comment on above: Performed By: #### L [id number] ####[facility] (BEAKER)[address] [place] [address] Eosinophils/100 WBC (Bld) 0.0 % Normal 0.0-6.0 [facility] Comment on above: Performed By: #### L [id number] ####[facility] (BEAKER)[address] [place] [address] Erythrocyte distribution width (RBC) [Ratio] 13.2 % Normal 11.5-15.0 [facility] Comment on above: Performed By: #### L [id number] ####[facility] (BEAKER)[address] [place] [address] ERYTHROCYTE MEAN CORPUSCULAR HEMOGLOBIN CONCENTRATION (G/DL) BY AUTOMATED 35.6 g/dL High 32.0-35.0 [facility] Comment on above: Performed By: #### L [id number] ####[facility] ([facility])[address] [place] [address] Hematocrit (Bld) [Volume fraction] 28.4 % Low 39.0-55.0 [facility] Comment on above: Performed By: #### L [id number] ####[facility] ([facility])[address] [place] [address] Hemoglobin (Bld) [Mass/Vol] 10.1 g/dL Low 13.0-17.0 [facility] Comment on above: Performed By: #### L [id number] ####[facility] ([facility])[address] [place] [address] Immature granulocytes (Bld) [#/Vol] 0.10 10*3/uL Normal 0.00-0.20 [facility] Comment on above: Performed By: #### L [id number] ####[facility] (BEAKER)[address] [place] [address] Immature granulocytes/100 WBC (Bld) 0.7 % Normal 0.0-1.0 [facility] Comment on above: Performed By: #### L [id number] ####[facility] (BEAKER)[address] [place] [address] IMMATURE PLATELET FRACTION % 2.3 % Normal 0.8-6.3 [facility] Comment on above: Performed By: #### L [id number] ####[facility] (BEAKER)[address] [place] [address] Lymphocytes (Bld) [#/Vol] 0.95 10*3/uL Low 1.20-4.00 [facility] Comment on above: Performed By: #### L [id number] ####[facility] (BEAKER)[address] [address] Lymphocytes/100 WBC (Bld) 6.4 % Low 20.0-45.0 [facility] Comment on above: Performed By: #### L [id number] ####[facility] (BEAKER)[address] [place] [address] MCH (RBC) [Entitic mass] 31.7 pg Normal 27.0-33.0 [facility] Comment on above: Performed By: #### L [id number] ####[facility] (BEAKER)[address], [place] [address] MCV (RBC) [Entitic vol] 89.0 fL Normal 82.0-98.0 [facility] Comment on above: Performed By: #### L [id number] ####[facility] (BEAKER)[address] [place] [address] Monocytes (Bld) [#/Vol] 1.37 10*3/uL High 0.10-1.00 [facility] Comment on above: Performed By: #### L [id number] ####[facility] (BEAKER)[address] [place] [address] Monocytes/100 WBC (Bld) 9.3 % Normal 5.0-12.0 [facility] Comment on above: Performed By: #### L [id number] ####[facility] (BEAKER)[address] [place] [address] Neutrophils (Bld) [#/Vol] 12.36 10*3/uL High 1.60-7.60 [facility] Comment on above: Performed By: #### L [id number] ####[facility] (BEAKER)[address] [place] [address] Neutrophils/100 WBC (Bld) 83.5 % High 40.0-72.0 [facility] Comment on above: Performed By: #### L [id number] ####[facility] ([facility])[address] [address] NRBC (PER 100 WBCS) BY AUTOMATED COUNT 0.0 % Normal 0 [facility] Comment on above: Performed By: #### L [id number] ####[facility] ([facility])[address] [address] PLATELETS (10*3/UL) IN BLOOD AUTOMATED COUNT 108 10*3/uL Low 150-400 [facility] Comment on above: Performed By: #### L [id number] ####[facility] ([facility])[address] [address] RBC (Bld) [#/Vol] 3.19 10*6/uL Low 4.20-5.70 [facility] Comment on above: Performed By: #### L [id number] ####[facility] ([facility])[address] [address] WBC (Bld) [#/Vol] 14.79 10*3/uL High 4.00-10.60 [facility] Comment on above: Performed By: #### L [id number] ####[facility] ([facility] [address] CO-OXIMETRYon 04-22-2023 CARBOXYHEMOGLOBIN/ HEMOGLOBIN TOTAL % IN BLOOD 1.5 % Normal [facility] Comment on above: Performed By: #### L [id number] ####[facility] RESPIRATORY [id number] [place] [address] [place] Hemoglobin (Bld) [Mass/Vol] 12.7 g/dL Normal [facility] Comment on above: Performed By: #### L [id number] ####[facility] RESPIRATORY [id number] [place] [address] [place] METHEMOGLOBIN/100 IN BLOOD 0.1 % Normal 0.0-1.5 [facility] Comment on above: Performed By: #### L [id number] ####[facility] RESPIRATORY [id number] [place] [address] [place] Oxygen saturation in Blood 71.7 % Normal [facility] Comment on above: Performed By: #### L [id number] ####[facility] RESPIRATORY [id number] [place] [address] [place] OXYGENATED HEMOGLOBIN IN BLOOD 70.6 % Normal [facility] Comment on above: Performed By: #### L [id number] ####[facility] RESPIRATORY [id number] [place] [address] [place] CONSULTon 04-22-2023 CONSULT Normal [facility] FIBRINOGENon 04-22-2023 Magnesium [Mass/Vol] 162 mg/dL Normal 150-425 [facility] Comment on above: Order Comment: Pre-o p diagnosis:NSTEMI (non-ST elevated myocardial infarction) (CMS/HCC) [I21.4]Acute non-ST segment elevation myocardial infarction (CMS/HCC) [I21.4]Coronary artery disease, unspecified vessel or lesion type, unspecified whether angina present, unspecified whether north fork or 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] Performed By: #### L [id number] ####[facility] ([facility])[address] [place] [address] HEPATIC FUNCTION PANELon Albumin [Mass/Vol] 2.5 g/dL Low 3.5-5.7 [facility] Comment on above: Performed By: #### L [id number] ####[facility] ([facility])[address] [place] [address] ALP [Catalytic activity/Vol] 54 U/L Normal 34-104 [facility] Comment on above: Performed By: #### L [id number] ####[facility] ([facility])[address] [place] [address] ALT [Catalytic activity/Vol] 10 U/L Normal 7-52 [facility] Comment on above: Performed By: #### L [id number] ####[facility] ([facility])[address] [place] [address] AST [Catalytic activity/Vol] 34 U/L Normal 13-39 [facility] Comment on above: Performed By: #### L [id number] ####[facility] (BEAKER)[address] [place] [address] Bilirubin [Mass/Vol] 0.6 mg/dL Normal 0.3-1.0 [facility] Comment on above: Performed By: #### L [id number] ####[facility] ([facility])[address] [place] [address] Magnesium [Mass/Vol] 0.2 mg/dL Normal 0-0.2 [facility] Comment on above: Performed By: #### L [id number] ####[facility] ([facility])[address] [place] [address] Protein [Mass/Vol] 3.7 g/dL Low 6.0-8.3 [facility] Comment on above: Performed By: #### L [id number] ####[facility] ([facility] [place] [address] HISTOLOGY - TISSUE EXAMon LAB AP CASE REPORT Normal [facility] Comment on above: Order Comment: Pre-o p diagnosis:NSTEMI (non-ST elevated myocardial infarction) (CMS/HCC) [I21.4]Acute non-ST segment elevation myocardial infarction (CMS/HCC) [I21.4]Coronary artery disease, unspecified vessel or lesion type, unspecified whether angina present, unspecified whether north fork or 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] Result Comment: Surg ical Pathology Case: [id number] Provider: Chaitanya Ames MD Collected: 04/22/2023 0928Ordering Location: [facility] Main Operating Room Received: 04/22/2023 1923Pathologist: RAHEEM Wilsonpecimens: A) - Lymph Node, ANTERIOR MEDIASTINAL LYMPH NODE B) - Lymph Node, RIGHT INTERNAL MAMMARY LYMPH NODE FOR HISTOLOGY Performed By: #### L [id number] ####[facility] ([facility] [place] [address] LAB AP CLINICAL INFORMATION Normal [facility] Comment on above: Order Comment: Pre-o p diagnosis:NSTEMI (non-ST elevated myocardial infarction) (CMS/HCC) [I21.4]Acute non-ST segment elevation myocardial infarction (CMS/HCC) [I21.4]Coronary artery disease, unspecified vessel or lesion type, unspecified whether angina present, unspecified whether north fork or 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] Result Comment: Post -Op [id number] - NSTEMI (non-ST elevated myocardial infarction) (CMS/HCC) [ICD-10-CM]I21.4 - Acute non-ST segment elevation myocardial infarction (CMS/HCC) [ICD-10-CM]I25.10 - Coronary artery disease, unspecified vessel or lesion type, unspecified whether angina present, unspecified whether north fork or transplanted heart [ICD-10-CM] Performed By: #### L [id number] ####[facility] (BEAKER)[address] [place] [address] LAB AP GROSS DESCRIPTION A. Lymph Node. Normal [facility] Comment on above: Order Comment: Pre-o p diagnosis:NSTEMI (non-ST elevated myocardial infarction) (CMS/HCC) [I21.4]Acute non-ST segment elevation myocardial infarction (CMS/HCC) [I21.4]Coronary artery disease, unspecified vessel or lesion type, unspecified whether angina present, unspecified whether north fork or 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] Result Comment: Rece ived in formalin labeled Gui Ortiz, ANTERIOR MEDIASTINAL LYMPH NODE Is a sheet [...] submitted in a single cassette.Jenny Guajardo, Pathologists' Rv Servicer Performed By: #### L [id number] ####[facility] ([facility])[address] [place] [address] LAB AP MICROSCOPIC DESCRIPTION Microscopic examination performed. [facility] Comment on above: Order Comment: Pre-o p diagnosis:NSTEMI (non-ST elevated myocardial infarction) (CMS/HCC) [I21.4]Acute non-ST segment elevation myocardial infarction (CMS/HCC) [I21.4]Coronary artery disease, unspecified vessel or lesion type, unspecified whether angina present, unspecified whether north fork or 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] Performed By: #### L [id number] ####[facility] ([facility])[address] [place] [address] LAB AP REPORT FINAL DIAGNOSIS NARRATIVE [facility] Comment on above: Order Comment: Pre-o p diagnosis:NSTEMI (non-ST elevated myocardial infarction) (CMS/HCC) [I21.4]Acute non-ST segment elevation myocardial infarction (CMS/HCC) [I21.4]Coronary artery disease, unspecified vessel or lesion type, unspecified whether angina present, unspecified whether north fork or 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] Result Comment: A. L ymph node, anterior mediastinal, regional resection: - Two benign lymph nodes with sinus histiocytosis and anthracosis (0/2).B. Lymph node, right internal mammary, regional resection: - One benign lymph node with sinus histiocytosis and anthracosis (0/1). - Minute fragment of skeletal muscle and fibroadipose tissue with focal chronic inflammation. Performed By: #### L [id number] ####[facility] ([facility])[address] [place] [address] HPon 04-22-2023 HP H&P reviewed. The pa indy was examined and there are no changes to the H&P. [facility] LACTIC ACID WITH 4 HOUR REFL EXon 04-22-2023 LACTATE (MMOL/L) IN SER/PLAS 2.3 mmol/L High 0.5-2.2 [facility] Comment on above: Order Comment: Pre-o p diagnosis:NSTEMI (non-ST elevated myocardial infarction) (CMS/HCC) [I21.4]Acute non-ST segment elevation myocardial infarction (CMS/HCC) [I21.4]Coronary artery disease, unspecified vessel or lesion type, unspecified whether angina present, unspecified whether north fork or 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] Performed By: #### L [id number] ####[facility] ([facility])[address] [facility] [address] LACTIC ACID, PLASMAon 2022 LACTATE (MMOL/L) IN SER/PLAS 2.6 mmol/L Critically high 0.5-2.2 [facility] Comment on above: Result Comment: Prev ious result verified on 04/22/2023 1906 on specimen/case [id number] called with component Lactate for procedure Lactic acid, plasma with value 2.7 mmol/L. Performed By: #### L [id number] ####[facility] (eTelemetry)[address] [facility] [address] LACTATE (MMOL/L) IN SER/PLAS 2.7 mmol/L Critically high 0.5-2.2 [facility] Comment on above: Performed By: #### L [id number] ####[facility] (eTelemetry)[address] [place] [address] MAGNESIUMon 04-22-2023 Magnesium [Mass/Vol] 2.1 mg/dL Normal 1.9-2.7 [facility] Comment on above: Performed By: #### L [id number] ####[facility] ([facility])[address] [place] [facility] [address] Magnesium [Mass/Vol] 2.4 mg/dL Normal 1.9-2.7 [facility] Comment on above: Order Comment: Pre-o p diagnosis:NSTEMI (non-ST elevated myocardial infarction) (CMS/HCC) [I21.4]Acute non-ST segment elevation myocardial infarction (CMS/HCC) [I21.4]Coronary artery disease, unspecified vessel or lesion type, unspecified whether angina present, unspecified whether north fork or 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] Performed By: #### L [id number] ####[facility] ([facility])[address] [place] [address] OPNOTEon 04-22-2023 OPNOTE Normal [facility] PHOSPHORUSon 04-22-2023 Magnesium [Mass/Vol] 3.6 mg/dL Normal 2.5-5.0 [facility] Comment on above: Performed By: #### L [id number] ####[facility] ([facility])[address] [place] [address] POCT ACTIVATED CLOTTING TIME UNSOLICITED RESULTSon 04-22-2023 POC ACTIVATED CLOTTING TIME 132 sec Normal 82-152 [facility] Comment on above: Performed By: #### L [id number] ####[facility] ([facility])[address] [place] [address] POC ACTIVATED CLOTTING TIME 341 sec High 82-152 [facility] Comment on above: Performed By: #### L [id number] ####[facility] ([facility])[address] [place] [address] POC ACTIVATED CLOTTING TIME 473 sec High 82-152 [facility] Comment on above: Performed By: #### L [id number] ####[facility] ([facility])[address] [place] [address] POC ACTIVATED CLOTTING TIME 516 sec High 82-152 [facility] Comment on above: Performed By: #### L [id number] ####[facility] ([facility])[address] [place] [address] POC ACTIVATED CLOTTING TIME 460 sec High 82-152 [facility] Comment on above: Performed By: #### L [id number] ####[facility] (BEAKER)[address] [place] [address] POC ACTIVATED CLOTTING TIME 446 sec High 82-152 [facility] Comment on above: Performed By: #### L [id number] ####[facility] (BEAKER)[address] [place] [address] POC ACTIVATED CLOTTING TIME 479 sec High 82-152 [facility] Comment on above: Performed By: #### L [id number] ####[facility] (BEAKER)[address] [place] [address] POC ACTIVATED CLOTTING TIME 447 sec High 82-152 [facility] Comment on above: Performed By: #### L [id number] ####[facility] (BEAKER)[address] [place] [address] POC ACTIVATED CLOTTING TIME 596 sec High 82-152 [facility] Comment on above: Performed By: #### L [id number] ####[facility] (BEAKER)[address] [place] [address] POC ACTIVATED CLOTTING TIME 602 sec High 82-152 [facility] Comment on above: Performed By: #### L [id number] ####[facility] (BEAKER)[address] [place] [address] POC ACTIVATED CLOTTING TIME 143 sec Normal 82-152 [facility] Comment on above: Performed By: #### L [id number] ####[facility] (BEAKER)[address] [place] [address] POCT GLUCOSE METER UNSOLICIT ED RESULTSon 04-22-2023 Glucose [Mass/Vol] 156 mg/dL High 70-105 [facility] Comment on above: Order Comment: Waive d Testing in the ED is performed under the ED CLIA certificate #[id number]. Result Comment: [email or web address] Performed By: #### L [id number] ####[facility] (BEAKER)[address] [place] [address] Glucose [Mass/Vol] 121 mg/dL High 70-105 [facility] Comment on above: Order Comment: Waive d Testing in the ED is performed under the ED CLIA certificate #[id number]. Result Comment: [email or web address] Performed By: #### L [id number] ####[facility] (BEAKER)[address] [place] [address] Glucose [Mass/Vol] 122 mg/dL High 70-105 [facility] Comment on above: Order Comment: Waive d Testing in the ED is performed under the ED CLIA certificate #[id number]. Result Comment: [email or web address] man Performed By: #### L [id number] ####[facility] ([facility] [place] [address] Glucose [Mass/Vol] 137 mg/dL High 70-105 [facility] Comment on above: Order Comment: Waive d Testing in the ED is performed under the ED CLIA certificate #[id number]. Result Comment: [email or web address] Performed By: #### L [id number] ####[facility] ([facility])[address] [place] [address] Glucose [Mass/Vol] 107 mg/dL High 70-105 [facility] Comment on above: Order Comment: Waive d Testing in the ED is performed under the ED CLIA certificate #[id number]. Result Comment: [email or web address] Performed By: #### L [id number] ####[facility] ([facility])[address] [place] [address] POCT PERFUSION PANEL UNSOLIC ITED RESULTSon 04-22-2023 CO2 [Moles/Vol] 25.0 mmol/L Normal 21.0-29.0 [facility] Comment on above: Performed By: #### L [id number] ####[facility] ([facility] [place] [address] Glucose [Mass/Vol] 195 mg/dL High 70-105 [facility] Comment on above: Performed By: #### L [id number] ####[facility] ([facility])[address] [place] [address] HCO3 (Bld) [Moles/Vol] 23.6 mmol/L Normal 23.0-28.0 [facility] Comment on above: Performed By: #### L [id number] ####[facility] (BEAKER)[address] [place] [address] Hematocrit (Bld) [Volume fraction] 27 % Low 38-51 [facility] Comment on above: Performed By: #### L [id number] ####[facility] (BEAKER)[address] [address] Hemoglobin (Bld) [Mass/Vol] 9.2 g/dL Low 12.0-17.0 [facility] Comment on above: Performed By: #### L [id number] ####[facility] (BEAKER)[address] [address] POCT BASE EXCESS -3.0 mmol/L Low -2.0-3.0 [facility] Comment on above: Performed By: #### L [id number] ####[facility] (BEAKER)[address] [address] POCT IONIZED CALCIUM 1.35 mmol/L High 1.12-1.32 [facility] Comment on above: Performed By: #### L [id number] ####[facility] (BEAKER)[address] [place] [address] POCT PCO2 47.6 mmHg Normal 41.0-51.0 [facility] Comment on above: Performed By: #### L [id number] ####[facility] (BEAKER)[address] [address] POCT PH 7.30 Low 7.31-7.41 [facility] Comment on above: Performed By: #### L [id number] ####[facility] (BEAKER)[address] [address] POCT PO2 355 mmHg High 80-105 [facility] Comment on above: Performed By: #### L [id number] ####[facility] (BEAKER)[address] [address] POCT SO2 100 % High 95-98 [facility] Comment on above: Performed By: #### L [id number] ####[facility] (BEAKER)[address] [address] Potassium [Moles/Vol] 3.2 mmol/L Low 3.5-4.9 [facility] Comment on above: Performed By: #### L [id number] ####[facility] (BEAKER)[address] [place] [address] Sodium [Moles/Vol] 146 mmol/L Normal 138.0-146.0 [facility] Comment on above: Performed By: #### L [id number] ####[facility] (BEAKER)[address] [place] [address] CO2 [Moles/Vol] 26.0 mmol/L Normal 21.0-29.0 [facility] Comment on above: Performed By: #### L [id number] ####[facility] (BEAKER)[address] [place] [address] Glucose [Mass/Vol] 196 mg/dL High 70-105 [facility] [place] Comment on above: Performed By: #### L [id number] ####[facility] (BEAKER)[address] [place] [address] HCO3 (Bld) [Moles/Vol] 24.2 mmol/L Normal 23.0-28.0 [facility] Comment on above: Performed By: #### L [id number] ####[facility] (BEAKER)[address] [place] [address] Hematocrit (Bld) [Volume fraction] 21 % Low 38-51 [facility] Comment on above: Performed By: #### L [id number] ####[facility] (BEAKER)[address] [place] [address] Hemoglobin (Bld) [Mass/Vol] 7.1 g/dL Low 12.0-17.0 [facility] Comment on above: Performed By: #### L [id number] ####[facility] (BEAKER)[address] [place] [address] POCT BASE EXCESS -3.0 mmol/L Low -2.0-3.0 [facility] Comment on above: Performed By: #### L [id number] ####[facility] (BEAKER)[address], [place] [address] POCT IONIZED CALCIUM 1.19 mmol/L Normal 1.12-1.32 [facility] Comment on above: Performed By: #### L [id number] ####[facility] (BEAKER)[address] [address] POCT PCO2 52.4 mmHg High 41.0-51.0 [facility] Comment on above: Performed By: #### L [id number] ####[facility] (BEAKER)[address] [address] POCT PH 7.27 Low 7.31-7.41 [facility] Comment on above: Performed By: #### L [id number] ####[facility] [address] POCT PO2 488 mmHg High 80-105 [facility] Comment on above: Performed By: #### L [id number] ####[facility] ([facility] [address] POCT SO2 100 % High 95-98 [facility] Comment on above: Performed By: #### L [id number] ####[facility] (BEAKER)[address], [place] [address] Potassium [Moles/Vol] 3.7 mmol/L Normal 3.5-4.9 [facility] Comment on above: Performed By: #### L [id number] ####[facility] (BEAKER)[address] [place] [address] Sodium [Moles/Vol] 145 mmol/L Normal 138.0-146.0 [facility] Comment on above: Performed By: #### L [id number] ####[facility] (BEAKER)[address] [place] [address] CO2 [Moles/Vol] 24.0 mmol/L Normal 21.0-29.0 [facility] Comment on above: Performed By: #### L [id number] ####[facility] (BEAKER)[address] [place] [address] Glucose [Mass/Vol] 177 mg/dL High 70-105 [facility] [place] Comment on above: Performed By: #### L [id number] ####[facility] (BEAKER)[address] [place] [address] HCO3 (Bld) [Moles/Vol] 22.2 mmol/L Low 23.0-28.0 [facility] Comment on above: Performed By: #### L [id number] ####[facility] (BEAKER)[address] [place] [address] Hematocrit (Bld) [Volume fraction] 21 % Low 38-51 [facility] Comment on above: Performed By: #### L [id number] ####[facility] (BEAKER)[address] [place] [address] Hemoglobin (Bld) [Mass/Vol] 7.1 g/dL Low 12.0-17.0 [facility] Comment on above: Performed By: #### L [id number] ####[facility] (BEAKER)[address] [place] [address] POCT BASE EXCESS -4.0 mmol/L Low -2.0-3.0 [facility] Comment on above: Performed By: #### L [id number] ####[facility] (BEAKER)[address] [place] [address] POCT IONIZED CALCIUM 1.32 mmol/L Normal 1.12-1.32 [facility] Comment on above: Performed By: #### L [id number] ####[facility] (BEAKER)[address] [place] [address] POCT PCO2 44.7 mmHg Normal 41.0-51.0 [facility] Comment on above: Performed By: #### L [id number] ####[facility] (BEAKER)[address] [place] [address] POCT PH 7.30 Low 7.31-7.41 [facility] Comment on above: Performed By: #### L [id number] ####[facility] (BEAKER)[address] [place] [address] POCT PO2 449 mmHg High 80-105 [facility] Comment on above: Performed By: #### L [id number] ####[facility] (BEAKER)[address] [place] [address] POCT SO2 100 % High 95-98 [facility] Comment on above: Performed By: #### L [id number] ####[facility] (BEAKER)[address] [place] [address] Potassium [Moles/Vol] 4.4 mmol/L Normal 3.5-4.9 [facility] Comment on above: Performed By: #### L [id number] ####[facility] (BEAKER)[address] [place] [address] Sodium [Moles/Vol] 141 mmol/L Normal 138.0-146.0 [facility] Comment on above: Performed By: #### L [id number] ####[facility] (BEAKER)[address] [place] [address] CO2 [Moles/Vol] 25.0 mmol/L Normal 21.0-29.0 [facility] Comment on above: Performed By: #### L [id number] ####[facility] (BEAKER)[address] [place] [address] Glucose [Mass/Vol] 171 mg/dL High 70-105 [facility] Comment on above: Performed By: #### L [id number] ####[facility] (BEAKER)[address] [place] [address] HCO3 (Bld) [Moles/Vol] 24.0 mmol/L Normal 23.0-28.0 [facility] Comment on above: Performed By: #### L [id number] ####[facility] (BEAKER)[address] [place] [address] Hematocrit (Bld) [Volume fraction] 26 % Low 38-51 [facility] Comment on above: Performed By: #### L [id number] ####[facility] (BEAKER)[address] [address] Hemoglobin (Bld) [Mass/Vol] 8.8 g/dL Low 12.0-17.0 [facility] Comment on above: Performed By: #### L [id number] ####[facility] (BEAKER)[address] [address] POCT BASE EXCESS -1.0 mmol/L Normal -2.0-3.0 [facility] Comment on above: Performed By: #### L [id number] ####[facility] (BEAKER)[address] [address] POCT IONIZED CALCIUM 1.06 mmol/L Low 1.12-1.32 [facility] Comment on above: Performed By: #### L [id number] ####[facility] (BEAKER)[address] [address] POCT PCO2 38.1 mmHg Low 41.0-51.0 [facility] Comment on above: Performed By: #### L [id number] ####[facility] (BEAKER)[address] [address] POCT PH 7.41 Normal 7.31-7.41 [facility] Comment on above: Performed By: #### L [id number] ####[facility] (BEAKER)[address] [address] POCT PO2 534 mmHg High 80-105 [facility] Comment on above: Performed By: #### L [id number] ####[facility] (BEAKER)[address] [address] POCT SO2 100 % High 95-98 [facility] Comment on above: Performed By: #### L [id number] ####[facility] (BEAKER)[address] [address] Potassium [Moles/Vol] 4.1 mmol/L Normal 3.5-4.9 [facility] Comment on above: Performed By: #### L [id number] ####[facility] (BEAKER)[address] [place] [address] Sodium [Moles/Vol] 141 mmol/L Normal 138.0-146.0 [facility] Comment on above: Performed By: #### L [id number] ####[facility] (BEAKER)[address] [place] [address] CO2 [Moles/Vol] 27.0 mmol/L Normal 21.0-29.0 [facility] Comment on above: Performed By: #### L [id number] ####[facility] (BEAKER)[address] [place] [address] Glucose [Mass/Vol] 187 mg/dL High 70-105 [facility] Comment on above: Performed By: #### L [id number] ####[facility] (BEAKER)[address] [place] [address] HCO3 (Bld) [Moles/Vol] 25.8 mmol/L Normal 23.0-28.0 [facility] Comment on above: Performed By: #### L [id number] ####[facility] (BEAKER)[address] [place] [address] Hematocrit (Bld) [Volume fraction] 26 % Low 38-51 [facility] Comment on above: Performed By: #### L [id number] ####[facility] (BEAKER)[address] [place] [address] Hemoglobin (Bld) [Mass/Vol] 8.8 g/dL Low 12.0-17.0 [facility] Comment on above: Performed By: #### L [id number] ####[facility] (BEAKER)[address] [place] [address] POCT BASE EXCESS 1.0 mmol/L Normal -2.0-3.0 [facility] Comment on above: Performed By: #### L [id number] ####[facility] (BEAKER)[address] [address] POCT IONIZED CALCIUM 1.06 mmol/L Low 1.12-1.32 [facility] Comment on above: Performed By: #### L [id number] ####[facility] (BEAKER)[address] [address] POCT PCO2 40.4 mmHg Low 41.0-51.0 [facility] Comment on above: Performed By: #### L [id number] ####[facility] ([facility] [address] POCT PH 7.41 Normal 7.31-7.41 [facility] Comment on above: Performed By: #### L [id number] ####[facility] ([facility] [address] POCT PO2 506 mmHg High 80-105 [facility] Comment on above: Performed By: #### L [id number] ####[facility] ([facility] [address] POCT SO2 100 % High 95-98 [facility] Comment on above: Performed By: #### L [id number] ####[facility] ([facility] [address] Potassium [Moles/Vol] 4.2 mmol/L Normal 3.5-4.9 [facility] Comment on above: Performed By: #### L [id number] ####[facility] (BEAKER)[address] [address] Sodium [Moles/Vol] 141 mmol/L Normal 138.0-146.0 [facility] Comment on above: Performed By: #### L [id number] ####[facility] (BEAKER)[address] [address] CO2 [Moles/Vol] 23.0 mmol/L Normal 21.0-29.0 [facility] Comment on above: Performed By: #### L [id number] ####[facility] (BEAKER)[address] [place] [address] Glucose [Mass/Vol] 211 mg/dL High 70-105 [facility] Comment on above: Performed By: #### L [id number] ####[facility] (BEAKER)[address] [place] [address] HCO3 (Bld) [Moles/Vol] 22.1 mmol/L Low 23.0-28.0 [facility] Comment on above: Performed By: #### L [id number] ####[facility] ([facility], [place] [address] Hematocrit (Bld) [Volume fraction] 28 % Low 38-51 [facility] Comment on above: Performed By: #### L [id number] ####[facility] ([facility], [place] [address] Hemoglobin (Bld) [Mass/Vol] 9.5 g/dL Low 12.0-17.0 [facility] Comment on above: Performed By: #### L [id number] ####[facility] ([facility] [place] [address] POCT BASE EXCESS -3.0 mmol/L Low -2.0-3.0 [facility] Comment on above: Performed By: #### L [id number] ####[facility] (BEAKER)[address] [place] [address] POCT IONIZED CALCIUM 1.08 mmol/L Low 1.12-1.32 [facility] Comment on above: Performed By: #### L [id number] ####[facility] (BEAKER)[address] [place] [address] POCT PCO2 38.1 mmHg Low 41.0-51.0 [facility] Comment on above: Performed By: #### L [id number] ####[facility] (BEAKER)[address] [place] [address] POCT PH 7.37 Normal 7.31-7.41 [facility] Comment on above: Performed By: #### L [id number] ####[facility] (BEAKER)[address] [place] [address] POCT PO2 418 mmHg High 80-105 [facility] Comment on above: Performed By: #### L [id number] ####[facility] (BEAKER)[address] [place] [address] POCT SO2 100 % High 95-98 [facility] Comment on above: Performed By: #### L [id number] ####[facility] (BEAKER)[address] [place] [address] Potassium [Moles/Vol] 4.7 mmol/L Normal 3.5-4.9 [facility] Comment on above: Performed By: #### L [id number] ####[facility] (BEAKER)[address] [place] [address] Sodium [Moles/Vol] 137 mmol/L Low 138.0-146.0 [facility] Comment on above: Performed By: #### L [id number] ####[facility] (BEAKER)[address] [place] [address] CO2 [Moles/Vol] 24.0 mmol/L Normal 21.0-29.0 [facility] Comment on above: Performed By: #### L [id number] ####[facility] (BEAKER)[address] [place] [address] Glucose [Mass/Vol] 203 mg/dL High 70-105 [facility] Comment on above: Performed By: #### L [id number] ####[facility] (BEAKER)[address] [place] [address] HCO3 (Bld) [Moles/Vol] 22.6 mmol/L Low 23.0-28.0 [facility] Comment on above: Performed By: #### L [id number] ####[facility] (BEAKER)[address] [place] [address] Hematocrit (Bld) [Volume fraction] 26 % Low 38-51 [facility] Comment on above: Performed By: #### L [id number] ####[facility] (BEAKER)[address] [address] Hemoglobin (Bld) [Mass/Vol] 8.8 g/dL Low 12.0-17.0 [facility] Comment on above: Performed By: #### L [id number] ####[facility] (BEAKER)[address] [address] POCT BASE EXCESS -2.0 mmol/L Normal -2.0-3.0 [facility] Comment on above: Performed By: #### L [id number] ####[facility] (BEAKER)[address] [address] POCT IONIZED CALCIUM 1.06 mmol/L Low 1.12-1.32 [facility] Comment on above: Performed By: #### L [id number] ####[facility] (BEAKER)[address] [address] POCT PCO2 38.7 mmHg Low 41.0-51.0 [facility] Comment on above: Performed By: #### L [id number] ####[facility] (BEAKER)[address] [address] POCT PH 7.38 Normal 7.31-7.41 [facility] Comment on above: Performed By: #### L [id number] ####[facility] (BEAKER)[address] [address] POCT PO2 377 mmHg High 80-105 [facility] Comment on above: Performed By: #### L [id number] ####[facility] (BEAKER)[address] [address] POCT SO2 100 % High 95-98 [facility] Comment on above: Performed By: #### L [id number] ####[facility] (BEAKER)[address] [address] Potassium [Moles/Vol] 5.0 mmol/L High 3.5-4.9 [facility] Comment on above: Performed By: #### L [id number] ####[facility] (BEAKER)[address] [place] [address] Sodium [Moles/Vol] 137 mmol/L Low 138.0-146.0 [facility] Comment on above: Performed By: #### L [id number] ####[facility] (BEAKER)[address] [place] [address] CO2 [Moles/Vol] 24.0 mmol/L Normal 21.0-29.0 [facility] Comment on above: Performed By: #### L [id number] ####[facility] (BEAKER)[address] [place] [address] Glucose [Mass/Vol] 193 mg/dL High 70-105 [facility] Comment on above: Performed By: #### L [id number] ####[facility] (BEAKER)[address] [place] [address] HCO3 (Bld) [Moles/Vol] 23.3 mmol/L Normal 23.0-28.0 [facility] Comment on above: Performed By: #### L [id number] ####[facility] (BEAKER)[address] [place] [address] Hematocrit (Bld) [Volume fraction] 28 % Low 38-51 [facility] Comment on above: Performed By: #### L [id number] ####[facility] (BEAKER)[address] [place] [address] Hemoglobin (Bld) [Mass/Vol] 9.5 g/dL Low 12.0-17.0 [facility] Comment on above: Performed By: #### L [id number] ####[facility] (BEAKER)[address] [place] [address] POCT BASE EXCESS -2.0 mmol/L Normal -2.0-3.0 [facility] Comment on above: Performed By: #### L [id number] ####[facility] (BEAKER)[address] [place] [address] POCT IONIZED CALCIUM 1.07 mmol/L Low 1.12-1.32 [facility] Comment on above: Performed By: #### L [id number] ####[facility] (BEAKER)[address] [address] POCT PCO2 38.7 mmHg Low 41.0-51.0 [facility] Comment on above: Performed By: #### L [id number] ####[facility] (BEAKER)[address] [address] POCT PH 7.39 Normal 7.31-7.41 [facility] Comment on above: Performed By: #### L [id number] ####[facility] ([facility] [address] POCT PO2 367 mmHg High 80-105 [facility] Comment on above: Performed By: #### L [id number] ####[facility] ([facility] [address] POCT SO2 100 % High 95-98 [facility] Comment on above: Performed By: #### L [id number] ####[facility] ([facility] [address] Potassium [Moles/Vol] 5.6 mmol/L High 3.5-4.9 [facility] Comment on above: Performed By: #### L [id number] ####[facility] (BEAKER)[address] [address] Sodium [Moles/Vol] 138 mmol/L Normal 138.0-146.0 [facility] Comment on above: Performed By: #### L [id number] ####[facility] (BEAKER)[address] [address] CO2 [Moles/Vol] 25.0 mmol/L Normal 21.0-29.0 [facility] Comment on above: Performed By: #### L [id number] ####[facility] (BEAKER)[address] [place] [address] Glucose [Mass/Vol] 165 mg/dL High 70-105 [facility] Comment on above: Performed By: #### L [id number] ####[facility] (BEAKER)[address] [address] HCO3 (Bld) [Moles/Vol] 23.5 mmol/L Normal 23.0-28.0 [facility] Comment on above: Performed By: #### L [id number] ####[facility] (BEAKER)[address] [address] Hematocrit (Bld) [Volume fraction] 27 % Low 38-51 [facility] Comment on above: Performed By: #### L [id number] ####[facility] ([facility])[address] [address] Hemoglobin (Bld) [Mass/Vol] 9.2 g/dL Low 12.0-17.0 [facility] Comment on above: Performed By: #### L [id number] ####[facility] ([facility])[address] [address] POCT BASE EXCESS -1.0 mmol/L Normal -2.0-3.0 [facility] Comment on above: Performed By: #### L [id number] ####[facility] (BEAKER)[address] [place] [address] POCT IONIZED CALCIUM 1.08 mmol/L Low 1.12-1.32 [facility] Comment on above: Performed By: #### L [id number] ####[facility] (BEAKER)[address] [place] [address] POCT PCO2 38.4 mmHg Low 41.0-51.0 [facility] Comment on above: Performed By: #### L [id number] ####[facility] (BEAKER)[address] [place] [address] POCT PH 7.39 Normal 7.31-7.41 [facility] Comment on above: Performed By: #### L [id number] ####[facility] (BEAKER)[address] [place] [address] POCT PO2 387 mmHg High 80-105 [facility] Comment on above: Performed By: #### L [id number] ####[facility] (BEAKER)[address] [place] [address] POCT SO2 100 % High 95-98 [facility] Comment on above: Performed By: #### L [id number] ####[facility] (BEAKER)[address] [place] [address] Potassium [Moles/Vol] 5.9 mmol/L High 3.5-4.9 [facility] Comment on above: Performed By: #### L [id number] ####[facility] (BEAKER)[address] [place] [address] Sodium [Moles/Vol] 138 mmol/L Normal 138.0-146.0 [facility] Comment on above: Performed By: #### L [id number] ####[facility] (BEAKER)[address] [place] [address] CO2 [Moles/Vol] 26.0 mmol/L Normal 21.0-29.0 [facility] Comment on above: Performed By: #### L [id number] ####[facility] (BEAKER)[address] [place] [address] Glucose [Mass/Vol] 142 mg/dL High 70-105 [facility] Comment on above: Performed By: #### L [id number] ####[facility] (BEAKER)[address] [place] [address] HCO3 (Bld) [Moles/Vol] 24.5 mmol/L Normal 23.0-28.0 [facility] Comment on above: Performed By: #### L [id number] ####[facility] (BEAKER)[address] [place] [address] Hematocrit (Bld) [Volume fraction] 24 % Low 38-51 [facility] Comment on above: Performed By: #### L [id number] ####[facility] (BEAKER)[address] [address] Hemoglobin (Bld) [Mass/Vol] 8.2 g/dL Low 12.0-17.0 [facility] Comment on above: Performed By: #### L [id number] ####[facility] (BEAKER)[address] [place] [address] POCT BASE EXCESS -1.0 mmol/L Normal -2.0-3.0 [facility] Comment on above: Performed By: #### L [id number] ####[facility] (BEAKER)[address], [place] [address] POCT IONIZED CALCIUM 0.99 mmol/L Low 1.12-1.32 [facility] Comment on above: Performed By: #### L [id number] ####[facility] (BEAKER)[address] [place] [address] POCT PCO2 44.6 mmHg Normal 41.0-51.0 [facility] Comment on above: Performed By: #### L [id number] ####[facility] (BEAKER)[address], [place] [address] POCT PH 7.35 Normal 7.31-7.41 [facility] Comment on above: Performed By: #### L [id number] ####[facility] (BEAKER)[address] [place] [address] POCT PO2 462 mmHg High 80-105 [facility] Comment on above: Performed By: #### L [id number] ####[facility] (BEAKER)[address] [place] [address] POCT SO2 100 % High 95-98 [facility] Comment on above: Performed By: #### L [id number] ####[facility] ([facility])[address] [place] [address] Potassium [Moles/Vol] 6.2 mmol/L Critically high 3.5-4.9 [facility] Comment on above: Performed By: #### L [id number] ####[facility] ([facility]ER)[address] [place] [address] Sodium [Moles/Vol] 136 mmol/L Low 138.0-146.0 [facility] Comment on above: Performed By: #### L [id number] ####[facility] ([facility]AKER)[address] [place] [address] CO2 [Moles/Vol] 24.0 mmol/L Normal 21.0-29.0 [facility] Comment on above: Performed By: #### L [id number] ####[facility] (BEAKER)[address] [place] [address] Glucose [Mass/Vol] 151 mg/dL High 70-105 [facility] Comment on above: Performed By: #### L [id number] ####[facility] ([facility]AKER)[address] [place] [address] HCO3 (Bld) [Moles/Vol] 22.6 mmol/L Low 23.0-28.0 [facility] Comment on above: Performed By: #### L [id number] ####[facility] (BEAKER)[address] [place] [address] Hematocrit (Bld) [Volume fraction] 38 % Normal 38-51 [facility] Comment on above: Performed By: #### L [id number] ####[facility] ([facility]AKER)[address] [place] [address] Hemoglobin (Bld) [Mass/Vol] 12.9 g/dL Normal 12.0-17.0 [facility] Comment on above: Performed By: #### L [id number] ####[facility] (BEAKER)[address] [place] [address] POCT BASE EXCESS -4.0 mmol/L Low -2.0-3.0 [facility] Comment on above: Performed By: #### L [id number] ####[facility] (BEAKER)[address] [place] [address] POCT IONIZED CALCIUM 1.25 mmol/L Normal 1.12-1.32 [facility] Comment on above: Performed By: #### L [id number] ####[facility] (BEAKER)[address] [address] POCT PCO2 47.5 mmHg Normal 41.0-51.0 [facility] Comment on above: Performed By: #### L [id number] ####[facility] (BEAKER)[address] [address] POCT PH 7.29 Low 7.31-7.41 [facility] Comment on above: Performed By: #### L [id number] ####[facility] (BEAKER)[address] [address] POCT PO2 336 mmHg High 80-105 [facility] Comment on above: Performed By: #### L [id number] ####[facility] (BEAKER)[address] [address] POCT SO2 100 % High 95-98 [facility] Comment on above: Performed By: #### L [id number] ####[facility] (BEAKER)[address] [address] Potassium [Moles/Vol] 4.4 mmol/L Normal 3.5-4.9 [facility] Comment on above: Performed By: #### L [id number] ####[facility] (BEAKER)[address] [place] [address] Sodium [Moles/Vol] 139 mmol/L Normal 138.0-146.0 [facility] Comment on above: Performed By: #### L [id number] ####[facility] (BEAKER)[address] [address] CO2 [Moles/Vol] 23.0 mmol/L Normal 21.0-29.0 [facility] Comment on above: Performed By: #### L [id number] ####[facility] (BEAKER)[address] [place] [address] Glucose [Mass/Vol] 123 mg/dL High 70-105 [facility] Comment on above: Performed By: #### L [id number] ####[facility] ([facility] [address] HCO3 (Bld) [Moles/Vol] 22.1 mmol/L Low 23.0-28.0 [facility] Comment on above: Performed By: #### L [id number] ####[facility] ([facility] [address] Hematocrit (Bld) [Volume fraction] 38 % Normal 38-51 [facility] Comment on above: Performed By: #### L [id number] ####[facility] ([facility])[address] [address] Hemoglobin (Bld) [Mass/Vol] 12.9 g/dL Normal 12.0-17.0 [facility] Comment on above: Performed By: #### L [id number] ####[facility] ([facility])[address] [place] [address] POCT BASE EXCESS -3.0 mmol/L Low -2.0-3.0 [facility] Comment on above: Performed By: #### L [id number] ####[facility] ([facility])[address] [place] [address] POCT IONIZED CALCIUM 1.25 mmol/L Normal 1.12-1.32 [facility] Comment on above: Performed By: #### L [id number] ####[facility] ([facility] [place] [address] POCT PCO2 39.3 mmHg Low 41.0-51.0 [facility] Comment on above: Performed By: #### L [id number] ####[facility] (BEAKER)[address] [place] [address] POCT PH 7.36 Normal 7.31-7.41 [facility] Comment on above: Performed By: #### L [id number] ####[facility] (BEAKER)[address] [place] [address] POCT PO2 412 mmHg High 80-105 [facility] Comment on above: Performed By: #### L [id number] ####[facility] (BEAKER)[address] [place] [address] POCT SO2 100 % High 95-98 [facility] Comment on above: Performed By: #### L [id number] ####[facility] ([facility])[address] [place] [address] Potassium [Moles/Vol] 3.8 mmol/L Normal 3.5-4.9 [facility] Comment on above: Performed By: #### L [id number] ####[facility] ([facility])[address] [place] [address] Sodium [Moles/Vol] 140 mmol/L Normal 138.0-146.0 [facility] Comment on above: Performed By: #### L [id number] ####[facility] ([facility])[address] [place] [address] PROTIME-INRon 04-22-2023 INR IN PPP BY COAGULATION ASSAY 1.60 High 0.90-1.10 [facility] Comment on above: Result Comment: ACCC P [...] CHEST 1995;108:231S-246S. Performed By: #### L [id number] ####[facility] (efw-suhl)[address] [place] [address] PROTHROMBIN TIME (PT) IN PPP BY COAGULATION ASSAY 19.1 Seconds High 12.3-14.8 [facility] Comment on above: Performed By: #### L [id number] ####[facility] (efw-suhl)[address] [place] [address] INR IN PPP BY COAGULATION ASSAY 1.72 High 0.90-1.10 [facility] Comment on above: Result Comment: ACCC P [...] CHEST 1995;108:231S-246S. Performed By: #### L [id number] ####[facility] (efw-suhl)[address] [place] [address] PROTHROMBIN TIME (PT) IN PPP BY COAGULATION ASSAY 20.2 Seconds High 12.3-14.8 [facility] Comment on above: Performed By: #### L [id number] ####[facility] (efw-suhl)[address] [place] [address] INR IN PPP BY COAGULATION ASSAY 2.00 High 0.90-1.10 [facility] Comment on above: Order Comment: Pre-o p diagnosis:NSTEMI (non-ST elevated myocardial infarction) (CMS/HCC) [I21.4]Acute non-ST segment elevation myocardial infarction (CMS/HCC) [I21.4]Coronary artery disease, unspecified vessel or lesion type, unspecified whether angina present, unspecified whether north fork or 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] Result Comment: ACCC [...] CHEST 1995;108:231S-246S. Performed By: #### L [id number] ####[facility] (BEAKER)[address] [place] [address] PROTHROMBIN TIME (PT) IN PPP BY COAGULATION ASSAY 22.8 Seconds High 12.3-14.8 [facility] Comment on above: Order Comment: Pre-o p diagnosis:NSTEMI (non-ST elevated myocardial infarction) (CMS/HCC) [I21.4]Acute non-ST segment elevation myocardial infarction (CMS/HCC) [I21.4]Coronary artery disease, unspecified vessel or lesion type, unspecified whether angina present, unspecified whether north fork or 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] Performed By: #### L [id number] ####[facility] ([facility] [place] [address] 36on 04-21-2023 36 Called patient and l eft voicemail. Updated NPO after midnight and not to take any medications in the AM. Surgery scheduled for 0730am. Normal [facility] ANESon 04-21-2023 ANES Normal [facility] Telephoneon 04-21-2023 Telephone [phone] Gui Ortiz 1955 M Date Provider Department [place] 04/21/2023 KAREY MAGANA J[facility] [place] [facility] Family History Family history unknown: Yes Normal [facility] APTTon 04-09-2023 ACTIVATED PARTIAL THROMBOPLASTIN TIME IN PPP BY COAGULATION ASSAY 34.7 Seconds Normal 25.0-35.0 [facility] Comment on above: Result Comment: Clin ical significance of the APTT is questionable in the presence of heparin. Performed By: #### L [id number] ####[facility] ([facility])[address] [place] [address] BASIC METABOLIC PANELon 03-18 Anion gap [Moles/Vol] 11 mmol/L Normal 7-20 [facility] Comment on above: Performed By: #### L [id number] ####[facility] ([facility])[address] [place] [address] Calcium [Mass/Vol] 9.8 mg/dL Normal 8.6-10.3 [facility] Comment on above: Performed By: #### L [id number] ####[facility] ([facility] [place] [address] Chloride [Moles/Vol] 105 mmol/L Normal 98-107 [facility] Comment on above: Performed By: #### L [id number] ####[facility] (BEAKER)[address] [place] [address] CO2 [Moles/Vol] 25 mmol/L Normal 21-31 [facility] Comment on above: Performed By: #### L [id number] ####[facility] ([facility] [place] [address] Creatinine [Mass/Vol] 0.91 mg/dL Normal 0.70-1.30 [facility] Comment on above: Performed By: #### L [id number] ####[facility] ([facility])[address] [place] [address] GLOMERULAR FILTRATION RATE ML/MIN/1.73 SQ M.PREDICTED 91.2 mL/min/1.73m*2 Normal >60.0 [facility] Comment on above: Result Comment: The [facility]???s estimated glomerular filtration rate (eGFR) will [...] of individuals. Performed By: #### L [id number] ####[facility] ([facility])[address] [place] [address] Glucose [Mass/Vol] 105 mg/dL High 70-100 [facility] Comment on above: Performed By: #### L [id number] ####[facility] ([facility])[address] [place] [address] Potassium [Moles/Vol] 3.9 mmol/L Normal 3.5-5.1 [facility] Comment on above: Performed By: #### L [id number] ####[facility] ([facility])[address] [place] [address] Sodium [Moles/Vol] 137 mmol/L Normal 136-145 [facility] Comment on above: Performed By: #### L [id number] ####[facility] ([facility] [place] [address] Urea nitrogen [Mass/Vol] 15 mg/dL Normal 7-25 [facility] Comment on above: Performed By: #### L [id number] ####[facility] ([facility])[address] [place] [address] UREA NITROGEN/CREATININ E (MASS RATIO) IN SER/PLAS 16.5 Normal [facility] Comment on above: Performed By: #### L [id number] ####[facility] ([facility])[address] [place] [address] CBC WITH AUTO DIFFERENTIALon 04-09-2023 Basophils (Bld) [#/Vol] 0.05 10*3/uL Normal 0.00-0.20 [facility] Comment on above: Performed By: #### L [id number] ####[facility] ([facility])[address] [place] [address] Basophils/100 WBC (Bld) 0.8 % Normal 0.0-1.0 [facility] Comment on above: Performed By: #### L [id number] ####[facility] ([facility])[address] [place] [address] Eosinophils (Bld) [#/Vol] 0.09 10*3/uL Normal 0.00-0.50 [facility] Comment on above: Performed By: #### L [id number] ####[facility] ([facility])[address] [place] [address] Eosinophils/100 WBC (Bld) 1.4 % Normal 0.0-6.0 [facility] Comment on above: Performed By: #### L [id number] ####[facility] ([facility] [place] [address] Erythrocyte distribution width (RBC) [Ratio] 13.1 % Normal 11.5-15.0 [facility] Comment on above: Performed By: #### L [id number] ####[facility] ([facility] [place] [address] ERYTHROCYTE MEAN CORPUSCULAR HEMOGLOBIN CONCENTRATION (G/DL) BY AUTOMATED 33.3 g/dL Normal 32.0-35.0 [facility] Comment on above: Performed By: #### L [id number] ####[facility] (BEAKER)[address] [place] [address] Hematocrit (Bld) [Volume fraction] 43.0 % Normal 39.0-55.0 [facility] Comment on above: Performed By: #### L [id number] ####[facility] (BEAKER)[address] [place] [address] Hemoglobin (Bld) [Mass/Vol] 14.3 g/dL Normal 13.0-17.0 [facility] Comment on above: Performed By: #### L [id number] ####[facility] (BEAKER)[address] [place] [address] Immature granulocytes (Bld) [#/Vol] 0.03 10*3/uL Normal 0.00-0.20 [facility] Comment on above: Performed By: #### L [id number] ####[facility] (BEAKER)[address] [place] [address] Immature granulocytes/100 WBC (Bld) 0.5 % Normal 0.0-1.0 [facility] Comment on above: Performed By: #### L [id number] ####[facility] (BEAKER)[address] [place] [address] Lymphocytes (Bld) [#/Vol] 2.46 10*3/uL Normal 1.20-4.00 [facility] Comment on above: Performed By: #### L [id number] ####[facility] (BEAKER)[address] [place] [address] Lymphocytes/100 WBC (Bld) 38.2 % Normal 20.0-45.0 [facility] Comment on above: Performed By: #### L [id number] ####[facility] (BEAKER)[address] [place] [address] MCH (RBC) [Entitic mass] 30.4 pg Normal 27.0-33.0 [facility] Comment on above: Performed By: #### L [id number] ####[facility] (BEAKER)[address] [place] [address] MCV (RBC) [Entitic vol] 91.3 fL Normal 82.0-98.0 [facility] Comment on above: Performed By: #### L [id number] ####[facility] (BEAKER)[address] [place] [address] Monocytes (Bld) [#/Vol] 0.51 10*3/uL Normal 0.10-1.00 [facility] Comment on above: Performed By: #### L [id number] ####[facility] (BEAKER)[address] [place] [address] Monocytes/100 WBC (Bld) 7.9 % Normal 5.0-12.0 [facility] Comment on above: Performed By: #### L [id number] ####[facility] (BEAKER)[address] [place] [address] Neutrophils (Bld) [#/Vol] 3.30 10*3/uL Normal 1.60-7.60 [facility] Comment on above: Performed By: #### L [id number] ####[facility] ([facility])[address] [place] [address] Neutrophils/100 WBC (Bld) 51.2 % Normal 40.0-72.0 [facility] Comment on above: Performed By: #### L [id number] ####[facility] (BEAKER)[address] [place] [address] NRBC (PER 100 WBCS) BY AUTOMATED COUNT 0.0 % Normal 0 [facility] Comment on above: Performed By: #### L [id number] ####[facility] (BEAKER)[address] [place] [address] PLATELETS (10*3/UL) IN BLOOD AUTOMATED COUNT 281 10*3/uL Normal 150-400 [facility] Comment on above: Performed By: #### L [id number] ####[facility] (BEAKER)[address] [place] [address] RBC (Bld) [#/Vol] 4.71 10*6/uL Normal 4.20-5.70 [facility] Comment on above: Performed By: #### L [id number] ####[facility] ([facility] [address] WBC (Bld) [#/Vol] 6.44 10*3/uL Normal 4.00-10.60 [facility] Comment on above: Performed By: #### L [id number] ####[facility] ([facility] [address] ETHANOLon 04-09-2023 ETHANOL (MG/DL) IN SER/PLAS <10 Normal [facility] Comment on above: Result Comment: No E thanol detected Performed By: #### L [id number] ####[facility] ([facility] [address] ETHANOL CALCULATED (%) Normal [facility] Comment on above: Performed By: #### L [id number] ####[facility] ([facility] [place] [address] Follow-Upon 04-09-2023 Follow-Up Normal [facility] HEMOGLOBIN A1Con 04-09-2023 Glucose [Mass/Vol] 128 mg/dL Normal [facility] Comment on above: Performed By: #### L [id number] ####[facility] ([facility])[address] [place] [address] HbA1c (Bld) [Mass fraction] 6.1 % High 4.0-6.0 [facility] Comment on above: Performed By: #### L [id number] ####[facility] ([facility] [place] [address] HPon 04-09-2023 HP Normal [facility] Labon 04-09-2023 Lab [id number] Gui Ortiz 1955 M Date Provider Department [place] 04/09/2023 2245-[facility] LAB RESOURCE [facility] [place] [facility] Family History Family history unknown: Yes Normal [facility] MRSA/MSSA DNA NASALon 2022 MRSA DNA Negative Normal Negative [facility] Comment on above: Order Comment: Testi [...] preclude nasal colonization. Performed By: #### L [id number] ####[facility] (BEAKER)[address] [place] [address] MSSA DNA Negative Normal Negative [facility] Comment on above: Order Comment: Testi [...] preclude nasal colonization. Performed By: #### L [id number] ####[facility] (BEAKER)[address] [place] [address] Orders Onlyon 04-09-2023 Orders Only [id number] Gui Ortiz 1955 M Date Provider Department Center 04/09/2023 [facility] Family History Family history unknown: Yes Normal [facility] PROTIME-INRon 04-09-2023 INR IN PPP BY COAGULATION ASSAY 1.00 Normal 0.90-1.10 [facility] Comment on above: Result Comment: ACCC P [...] CHEST 1995;108:231S-246S. Performed By: #### L [id number] ####[facility] [place] [address] PROTHROMBIN TIME (PT) IN PPP BY COAGULATION ASSAY 13.2 Seconds Normal 12.3-14.8 [facility] Comment on above: Performed By: #### L [id number] ####[facility] ([facility])[address] [place] [address] TOXICOLOGY PANEL URINEon AMPHETAMINE+METHAM PHETAMINE SCREEN (PRESENCE) IN URINE Negative Normal Negative [facility] Comment on above: Performed By: #### L [id number] ####[facility] ([facility])[address] [place] [address] BARBITURATES PRESENCE IN URINE BY SCREEN METHOD Negative Normal Negative [facility] Comment on above: Performed By: #### L [id number] ####[facility] ([facility])[address] [place] [address] Benzodiazepines Ql (U) Negative Normal Negative [facility] Comment on above: Performed By: #### L [id number] ####[facility] ([facility])[address] [place] [address] CANNABINOID (PRESENCE) IN URINE BY SCREEN METHOD Negative Normal Negative [facility] Comment on above: Performed By: #### L [id number] ####[facility] ([facility])[address] [place] [address] Cocaine Ql (U) Negative Normal Negative [facility] Comment on above: Performed By: #### L [id number] ####[facility] ([facility])[address] [place] [address] METHADONE (PRESENCE) IN URINE BY SCREEN METHOD Normal [facility] Comment on above: Result Comment: Meth adone being sent out. Results to follow. Performed By: #### L [id number] ####[facility] ([facility])[address] [place] [address] OPIATES (PRESENCE) IN URINE BY SCREEN METHOD Negative Normal Negative [facility] Comment on above: Performed By: #### L [id number] ####[facility] ([facility])[address] [place] [address] PHENCYCLIDINE PRESENCE IN URINE BY SCREEN METHOD Negative Normal Negative [facility] Comment on above: Performed By: #### L [id number] ####[facility] ([facility])[address] [place] [address] Propoxyphene Screen Ql (U) Negative Normal Negative [facility] Comment on above: Performed By: #### L [id number] ####[facility] ([facility])[address] [place] [address] TRICYCLIC ANTIDEPRESSANTS (PRESENCE) IN URINE Negative Normal Negative [facility] Comment on above: Performed By: #### L [id number] ####[facility] ([facility])[address] [place] [address] TYPE AND SCREENon 04-09-2023 AB SCREEN Negative Normal [facility] Comment on above: Performed By: #### L [id number] ####[facility] BLOOD BANK, ABO group Nom (Bld) O Normal [facility] Comment on above: Performed By: #### L [id number] ####[facility] BLOOD BANK, RH TYPE IN BLOOD Positive [facility] Comment on above: Performed By: #### L [id number] ####[facility] BLOOD BANK, URINALYSISon 04-09-2023 BILIRUBIN, TOTAL PRESENCE IN URINE Negative Normal Negative [facility] Comment on above: Performed By: #### L [id number] ####[facility] (BEAKER)[address] [place] [address] Clarity (U) Clear Normal Clear [facility] Comment on above: Performed By: #### L [id number] ####[facility] ([facility] [place] [address] Color (U) Yellow Normal Yellow [facility] Comment on above: Performed By: #### L [id number] ####[facility] ([facility])[address] [place] [address] Glucose (U) [Mass/Vol] Negative Normal Negative [facility] Comment on above: Performed By: #### L [id number] ####[facility] ([facility])[address] [place] [address] HEMOGLOBIN PRESENCE IN URINE Small Abnormal Negative [facility] Comment on above: Performed By: #### L [id number] ####[facility] ([facility])[address] [place] [address] Ketones Ql (U) Negative Normal Negative [facility] Comment on above: Performed By: #### L [id number] ####[facility] ([facility])[address] [place] [address] LEUKOCYTE ESTERASE PRESENCE IN URINE BY TEST STRIP Negative Normal Negative [facility] Comment on above: Performed By: #### L [id number] ####[facility] ([facility])[address] [place] [address] NITRITE PRESENCE IN URINE Negative Normal Negative [facility] Comment on above: Performed By: #### L [id number] ####[facility] (BEAKER)[address] [place] [address] pH (U) 6.0 [pH] Normal 5.0-8.0 [facility] Comment on above: Performed By: #### L [id number] ####[facility] (BEAKER)[address] [place] [address] Protein (U) [Mass/Vol] Negative Normal Negative [facility] Comment on above: Performed By: #### L [id number] ####[facility] (BEAKER)[address] [place] [address] Specific gravity (U) [Rel density] 1.012 Low 1.015-1.020 [facility] Comment on above: Performed By: #### L [id number] ####[facility] (BEAKER)[address] [place] [address] URINALYSIS MICROSCOPICon CASTS IN URINE Normal [facility] Comment on above: Performed By: #### L [id number] ####[facility] (BEAKER)[address] [place] [address] CRYSTALS IN URINE Normal [facility] Comment on above: Performed By: #### L [id number] ####[facility] (BEAKER)[address] [place] [address] RBC (#/HPF) IN URINE SEDIMENT 3-5 Abnormal None Seen [facility] Comment on above: Performed By: #### L [id number] ####[facility] (BEAKER)[address] [place] [address] SQUAMOUS EPITHELIAL CELLS (#/HPF) IN URINE SEDIMENT None Seen Normal None Seen, Occasional [facility] Comment on above: Performed By: #### L [id number] ####[facility] (BEAKER)[address] [place] [address] WBC (LEUKOCYTE) (#/HPF) IN URINE SEDIMENT None Seen Normal None Seen [facility] Comment on above: Performed By: #### L [id number] ####[facility] (BEAKER)[address] [place] [address] Documentationon 04-01-2023 Documentation Normal [facility] 30on 03-23-2023 30 Normal [facility] 30 Normal [facility] 30 Normal [facility] ANTI-XA (HEPARIN LEVEL)on HEPARIN UNFRACTIONATED (U/ML) IN PPP BY CHROMOGENIC METHOD <0.10 Invalid Interpretation Code 0.3-0.7 [facility] Comment on above: Order Comment: Check anti-Xa level every 6 hours while on heparin infusion, or per protocol. Result Comment: Ramsey roxaban and Apixaban will interfere with the anti Xa assay used to monitor UFH and LMWH. Performed By: #### L [id number] ####[facility] ([facility] ([facility] [place] [address] BASIC METABOLIC PANELon 10-0 Anion gap [Moles/Vol] 11 mmol/L Normal 7-20 [facility] Comment on above: Performed By: #### L [id number] ####[facility] ([facility])[address] [place] [address] Calcium [Mass/Vol] 9.1 mg/dL Normal 8.6-10.3 [facility] Comment on above: Performed By: #### L [id number] ####[facility] ([facility])[address] [place] [address] Chloride [Moles/Vol] 107 mmol/L Normal 98-107 [facility] Comment on above: Performed By: #### L [id number] ####[facility] ([facility])[address] [place] [address] CO2 [Moles/Vol] 23 mmol/L Normal 21-31 [facility] Comment on above: Performed By: #### L [id number] ####[facility] ([facility] [place] [address] Creatinine [Mass/Vol] 0.85 mg/dL Normal 0.70-1.30 [facility] Comment on above: Performed By: #### L [id number] ####[facility] ([facility])[address] [facility] [address] GLOMERULAR FILTRATION RATE ML/MIN/1.73 SQ M.PREDICTED 94.1 mL/min/1.73m*2 Normal >60.0 [facility] Comment on above: Result Comment: The [facility]???s estimated glomerular filtration rate (eGFR) will [...] of individuals. Performed By: #### L [id number] ####[facility] ([facility])[address] [place] [address] Glucose [Mass/Vol] 103 mg/dL High 70-100 [facility] [place] Comment on above: Performed By: #### L [id number] ####[facility] ([facility])[address] [place] [address] Potassium [Moles/Vol] 3.8 mmol/L Normal 3.5-5.1 [facility] Comment on above: Performed By: #### L [id number] ####[facility] ([facility])[address] [place] [address] Sodium [Moles/Vol] 137 mmol/L Normal 136-145 [facility] Comment on above: Performed By: #### L [id number] ####[facility] ([facility])[address] [place] [address] Urea nitrogen [Mass/Vol] 12 mg/dL Normal 7-25 [facility] Comment on above: Performed By: #### L [id number] ####[facility] ([facility])[address] [place] [address] UREA NITROGEN/CREATININ E (MASS RATIO) IN SER/PLAS 14.1 Normal [facility] Comment on above: Performed By: #### L [id number] ####[facility] ([facility])[address] [place] [address] CBCon 03-23-2023 Erythrocyte distribution width (RBC) [Ratio] 13.0 % Normal 11.5-15.0 [facility] Comment on above: Performed By: #### L [id number] ####[facility] ([facility])[address] [address] ERYTHROCYTE MEAN CORPUSCULAR HEMOGLOBIN CONCENTRATION (G/DL) BY AUTOMATED 34.5 g/dL Normal 32.0-35.0 [facility] Comment on above: Performed By: #### L [id number] ####[facility] ([facility])[address] [place] [address] Hematocrit (Bld) [Volume fraction] 41.4 % Normal 39.0-55.0 [facility] Comment on above: Performed By: #### L [id number] ####[facility] ([facility])[address], [place] [address] Hemoglobin (Bld) [Mass/Vol] 14.3 g/dL Normal 13.0-17.0 [facility] Comment on above: Performed By: #### L [id number] ####[facility] ([facility])[address] [place] [address] MCH (RBC) [Entitic mass] 30.4 pg Normal 27.0-33.0 [facility] Comment on above: Performed By: #### L [id number] ####[facility] ([facility])[address] [place] [address] MCV (RBC) [Entitic vol] 87.9 fL Normal 82.0-98.0 [facility] Comment on above: Performed By: #### L [id number] ####[facility] ([facility])[address] [place] [address] PLATELETS (10*3/UL) IN BLOOD AUTOMATED COUNT 243 10*3/uL Normal 150-400 [facility] Comment on above: Performed By: #### L [id number] ####[facility] ([facility])[address] [place] [address] RBC (Bld) [#/Vol] 4.71 10*6/uL Normal 4.20-5.70 [facility] Comment on above: Performed By: #### L [id number] ####[facility] ([facility])[address] [place] [address] WBC (Bld) [#/Vol] 6.84 10*3/uL Normal 4.00-10.60 [facility] Comment on above: Performed By: #### L [id number] ####[facility] ([facility])[address] [place] [address] CT HEAD WO IV CONTRASTon CT HEAD WO IV CONTRAST Normal [facility] CTA CHEST W AND/OR WO IV CON TRASTon 03-23-2023 CTA CHEST W AND/OR WO IV CONTRAST Normal [facility] DSon 03-23-2023 DS Normal [facility] 30on 03-22-2023 30 Normal [facility] 30 Normal [facility] ANESon 03-22-2023 ANES Normal [facility] APTTon 03-22-2023 ACTIVATED PARTIAL THROMBOPLASTIN TIME IN PPP BY COAGULATION ASSAY 36.2 Seconds High 25.0-35.0 [facility] Comment on above: Order Comment: Basel ine aPTT before initiating heparin infusion. Result Comment: Clin ical significance of the APTT is questionable in the presence of heparin. Performed By: #### L [id number] ####[facility] ([facility])[address] [place] [address] BASIC METABOLIC PANELon 10-0 Anion gap [Moles/Vol] 9 mmol/L Normal 7-20 [facility] Comment on above: Performed By: #### L [id number] ####[facility] ([facility])[address] [place] [address] Calcium [Mass/Vol] 8.9 mg/dL Normal 8.6-10.3 [facility] Comment on above: Performed By: #### L [id number] ####[facility] ([facility])[address] [place] [address] Chloride [Moles/Vol] 111 mmol/L High 98-107 [facility] Comment on above: Performed By: #### L [id number] ####[facility] ([facility])[address] [facility] [place] [address] CO2 [Moles/Vol] 22 mmol/L Normal 21-31 [facility] Comment on above: Performed By: #### L [id number] ####[facility] ([facility])[address] [place] [address] Creatinine [Mass/Vol] 0.79 mg/dL Normal 0.70-1.30 [facility] Comment on above: Performed By: #### L [id number] ####[facility] ([facility])[address] [place] [address] GLOMERULAR FILTRATION RATE ML/MIN/1.73 SQ M.PREDICTED 96.2 mL/min/1.73m*2 Normal >60.0 [facility] Comment on above: Result Comment: The [facility]???s estimated glomerular filtration rate (eGFR) will [...] of individuals. Performed By: #### L [id number] ####[facility] ([facility])[address] [place] [address] Glucose [Mass/Vol] 112 mg/dL High 70-100 [facility] Comment on above: Performed By: #### L [id number] ####[facility] ([facility])[address] [place] [address] Potassium [Moles/Vol] 3.9 mmol/L Normal 3.5-5.1 [facility] Comment on above: Performed By: #### L [id number] ####[facility] ([facility] [place] [address] Sodium [Moles/Vol] 138 mmol/L Normal 136-145 [facility] Comment on above: Performed By: #### L [id number] ####[facility] ([facility])[address] [place] [address] Urea nitrogen [Mass/Vol] 12 mg/dL Normal 7-25 [facility] Comment on above: Performed By: #### L [id number] ####[facility] ([facility])[address] [place] [address] UREA NITROGEN/CREATININ E (MASS RATIO) IN SER/PLAS 15.2 Normal [facility] Comment on above: Performed By: #### L [id number] ####[facility] ([facility]))[address] [address] CBCon 03-22-2023 Erythrocyte distribution width (RBC) [Ratio] 13.2 % Normal 11.5-15.0 [facility] Comment on above: Performed By: #### L [id number] ####[facility] ([facility])[address] [address] ERYTHROCYTE MEAN CORPUSCULAR HEMOGLOBIN CONCENTRATION (G/DL) BY AUTOMATED 33.7 g/dL Normal 32.0-35.0 [facility] Comment on above: Performed By: #### L [id number] ####[facility] ([facility])[address] [place] [address] Hematocrit (Bld) [Volume fraction] 40.3 % Normal 39.0-55.0 [facility] Comment on above: Performed By: #### L [id number] ####[facility] ([facility])[address], [place] [address] Hemoglobin (Bld) [Mass/Vol] 13.6 g/dL Normal 13.0-17.0 [facility] Comment on above: Performed By: #### L [id number] ####[facility] ([facility]))[address], [place] [address] MCH (RBC) [Entitic mass] 30.5 pg Normal 27.0-33.0 [facility] Comment on above: Performed By: #### L [id number] ####[facility] ([facility])[address] [place] [address] MCV (RBC) [Entitic vol] 90.4 fL Normal 82.0-98.0 [facility] Comment on above: Performed By: #### L [id number] ####[facility] ([facility])[address] [place] [address] PLATELETS (10*3/UL) IN BLOOD AUTOMATED COUNT 241 10*3/uL Normal 150-400 [facility] Comment on above: Performed By: #### L [id number] ####[facility] ([facility])[address] [place] [address] RBC (Bld) [#/Vol] 4.46 10*6/uL Normal 4.20-5.70 [facility] Comment on above: Performed By: #### L [id number] ####[facility] ([facility])[address] [place] [address] WBC (Bld) [#/Vol] 6.03 10*3/uL Normal 4.00-10.60 [facility] Comment on above: Performed By: #### L [id number] ####[facility] ([facility])[address] [place] [address] CONSULTon 03-22-2023 CONSULT Normal [facility] CONSULT Normal [facility] CT CHEST WO IV CONTRASTon CT CHEST WO IV CONTRAST Normal [facility] HEMOGLOBIN A1Con 03-22-2023 Glucose [Mass/Vol] 126 mg/dL Normal [facility] Comment on above: Performed By: #### L [id number] ####[facility] ([facility])[address] [place] [address] HbA1c (Bld) [Mass fraction] 6.0 % Normal 4.0-6.0 [facility] Comment on above: Performed By: #### L [id number] ####[facility] ([facility] [place] [address] HPon 03-22-2023 HP H&P reviewed. The pa tient was examined and there are no changes to the H&P. Will proceed with coronary angiogram for chest pain and elevated high sensitivity troponin. Normal [facility] LIPID PANELon 03-22-2023 CHOL/HDL 4.9 mg/dL Normal [facility] Comment on above: Performed By: #### L [id number] ####[facility] ([facility] [facility] [address] Cholesterol [Mass/Vol] 138 mg/dL Normal 120-200 [facility] Comment on above: Performed By: #### L [id number] ####[facility] ([facility] [place] [address] Magnesium [Mass/Vol] 107 mg/dL Normal 40-149 [facility] Comment on above: Result Comment: TRIG LYCERIDE REFERENCE RANGE:20 YEARS AND OLDER CARDIOVASCULAR RISKLESS THAN 150 mg/dL LOW [id number] TO 199 mg/dL BORDERLINE [id number] mg/dL AND GREATER HIGH RISK Performed By: #### L [id number] ####[facility] ([facility])[address] [facility] [address] Magnesium [Mass/Vol] 89 mg/dL Normal 0-160 [facility] Comment on above: Performed By: #### L [id number] ####[facility] ([facility] [place] [address] Magnesium [Mass/Vol] 28 mg/dL Normal 23-92 [facility] Comment on above: Performed By: #### L [id number] ####[facility] ([facility])[address] [place] [address] NON HDL CHOL. (LDL+VLDL) 110 Normal [facility] Comment on above: Performed By: #### L [id number] ####[facility] ([facility])[address] [facility] [address] TOTAL VLDL-C 21 mg/dL Normal 0-40 [facility] Comment on above: Performed By: #### L [id number] ####[facility] ([facility])[address] [place] [address] MRSA/MSSA DNA NASALon 2022 MRSA DNA Negative Normal Negative [facility] Comment on above: Order Comment: Testi [...] preclude nasal colonization. Performed By: #### L [id number] ####[facility] ([facility])[address] [place] [address] MSSA DNA Negative Normal Negative [facility] Comment on above: Order Comment: Testi [...] preclude nasal colonization. Performed By: #### L [id number] ####[facility] ([facility])[address] [place] [address] TROPONIN Ion 03-22-2023 Troponin I.cardiac [Mass/Vol] 0.03 ng/mL Normal 0.00-0.04 [facility] Comment on above: Performed By: #### L [id number] ####[facility] ([facility])[address] [place] [address] Troponin I.cardiac [Mass/Vol] 0.04 ng/mL Normal 0.00-0.04 [facility] Comment on above: Performed By: #### L [id number] ####[facility] ([facility])[address] [place] [address] TSH3 REFLEX TO FT4on 023 THYROTROPIN (MIU/L) IN SER/PLAS BY DETECTION LIMIT <= 0.05 MIU/L 2.07 mIU/L Normal 0.34-5.60 [facility] Comment on above: Performed By: #### L [id number] ####[facility] ([facility])[address] [place] [address] URINALYSISon 03-22-2023 BILIRUBIN, TOTAL PRESENCE IN URINE Negative Normal Negative [facility] Comment on above: Performed By: #### L [id number] ####[facility] ([facility] [place] [address] Clarity (U) Clear Normal Clear [facility] Comment on above: Performed By: #### L [id number] ####[facility] ([facility])[address] [place] [address] Color (U) Yellow Normal Yellow [facility] Comment on above: Performed By: #### L [id number] ####[facility] ([facility])[address] [place] [address] Glucose (U) [Mass/Vol] Negative Normal Negative [facility] Comment on above: Performed By: #### L [id number] ####[facility] ([facility])[address] [place] [address] HEMOGLOBIN PRESENCE IN URINE Small Abnormal Negative [facility] Comment on above: Performed By: #### L [id number] ####[facility] ([facility])[address] [place] [address] Ketones Ql (U) Negative Normal Negative [facility] Comment on above: Performed By: #### L [id number] ####[facility] ([facility])[address] [place] [address] LEUKOCYTE ESTERASE PRESENCE IN URINE BY TEST STRIP Negative Normal Negative [facility] Comment on above: Performed By: #### L [id number] ####[facility] ([facility])[address] [place] [address] NITRITE PRESENCE IN URINE Negative Normal Negative [facility] Comment on above: Performed By: #### L [id number] ####[facility] ([facility] [place] [address] pH (U) 6.0 [pH] Normal 5.0-8.0 [facility] Comment on above: Performed By: #### L [id number] ####[facility] ([facility])[address] [place] [address] Protein (U) [Mass/Vol] Negative Normal Negative [facility] Comment on above: Performed By: #### L [id number] ####[facility] ([facility])[address] [place] [address] Specific gravity (U) [Rel density] 1.049 High 1.015-1.020 [facility] Comment on above: Performed By: #### L [id number] ####[facility] ([facility])[address] [place] [address] URINALYSIS MICROSCOPICon CASTS IN URINE Normal [facility] Comment on above: Performed By: #### L [id number] ####[facility] ([facility])[address] [place] [address] CRYSTALS IN URINE Normal [facility] Comment on above: Performed By: #### L [id number] ####[facility] ([facility])[address] [place] [address] RBC (#/HPF) IN URINE SEDIMENT 6-10 Abnormal None Seen [facility] Comment on above: Performed By: #### L [id number] ####[facility] ([facility])[address] [place] [address] SQUAMOUS EPITHELIAL CELLS (#/HPF) IN URINE SEDIMENT Few Abnormal None Seen, Occasional [facility] Comment on above: Performed By: #### L [id number] ####[facility] ([facility])[address] [place] [address] WBC (LEUKOCYTE) (#/HPF) IN URINE SEDIMENT None Seen Normal None Seen [facility] Comment on above: Performed By: #### L [id number] ####[facility] ([facility])[address] [place] [address] 30on 03-21-2023 30 Normal [facility] D-DIMER, QUANTITATIVEon FIBRIN D-DIMER (UG/L FEU) IN PLATELET POOR PLASMA 0.36 mcg/mL FEU Normal 0.27-0.49 [facility] Comment on above: Order Comment: D-Dim er values of less than 0.50 ug/ml (FEU) are considered to be a negative predictor of thrombosis. However, the D-Dimer result should be used in conjunction with pretest probability and should not be used alone to diagnose a thrombotic event. 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 Follow-up With When Contact Information DAKSHA ROMERO, ELIZABETH Benedict, URL In 1 year [address] [place] [address] Additional Instructions: w/PSA Patient Education Documentation recorded by the scribned Rojas accurately reflects the services(s) I performed and decisions made by me. Authenticated by Elizabeth Lindsay PA-C on 01/29/2023 16:19:01. I, Nani Rojas, personally scribed for Elizabeth Lindsay PA-C on [...] Protein Urine Dipstick: Negative (01/29/23 14:37:00) Specific [place] Urine Dipstick: 1.025 (01/29/23 14:37:00) Urine Appearance Urine Dipstick: Clear (01/29/23 14:37:00) Urine Color Urine Dipstick: Yellow (01/29/23 14:37:00) pH Urine Dips (more content not included)... Normal [facility] Comment on above: Result Comment: Elec [...] by: GARCIA GALLEGOS Date: 2022-08-04 17:12 Normal [facility] CT LUNG CANCER SCREENINGon 0 07-26-2022 [...] DAVID EL Date: 2022-07-26 07:42 Normal [facility] INSULINon 07-26-2022 Insulin 4.0 uIU/mL Normal 2.6-24.9 [facility] Comment on above: Performed By: #### I NSULIN #### [facility] [address] [place] [address] Dr. Rehana Martinez CBC AUTO DIFFon 07-25-2022 BASO # 0.0 103/ul Normal 0.0-0.1 [facility] Comment on above: Performed By: #### C BC #### [facility] [address] [place] [address] Dr. Rehana Martinez Basophils/100 WBC (Bld) 0.2 % Normal 0.2-2.0 [facility] Comment on above: Performed By: #### C BC #### [facility] [address] [place] [address] Dr. Rehana Martinez EO # 0.1 103/ul Normal 0.0-0.7 [facility] Comment on above: Performed By: #### C BC #### [facility] [address] [place] [address] Dr. Rehana Martinez Eosinophils/100 WBC (Bld) 0.5 % Critically low 0.9-7.0 [facility] Comment on above: Performed By: #### C BC #### [facility] [address] [place] [address] Dr. Rehana Martinez Erythrocyte distribution width (RBC) [Ratio] 13.6 % Normal 11.0-15.0 [facility] Comment on above: Performed By: #### C BC #### [facility] [address] [place] [address] Dr. Rehana Martinez Hematocrit (Bld) [Volume fraction] 45.6 % Normal 42.0-54.0 [facility] Comment on above: Performed By: #### C BC #### [facility] [address] [place] [address] Dr. Rehana Martinez Hemoglobin (Bld) [Mass/Vol] 15.1 g/dL Normal 14.0-18.0 [facility] Comment on above: Performed By: #### C BC #### [facility] [address] [place] [address] Dr. Rehana Martinez IG # 0.04 10e3/ul Critically high 0.00-0.03 [facility] Comment on above: Performed By: #### C BC #### [facility] [address] [place] [address] Dr. Rehana Martinez IG % 0.4 % Normal 0.0-0.5 [facility] Comment on above: Performed By: #### C BC #### [facility] [address] [place] [address] Dr. Rehana Martinez LYMPH # 1.7 103/ul Normal 1.2-3.8 [facility] Comment on above: Performed By: #### C BC #### [facility] [address] [place] [address] Dr. Rehana Martinez Lymphocytes/100 WBC (Bld) 17.9 % Critically low 20.5-60.0 [facility] Comment on above: Performed By: #### C BC #### [facility] [address] [place] [address] Dr. Rehana Martinez MANUAL DIFF REQ NO Normal [facility] Comment on above: Performed By: #### C BC #### [facility] [address] [address] [address] Rehana Martinez MCH (RBC) [Entitic mass] 30.8 pg Normal 25.9-34.0 [facility] Comment on above: Performed By: #### C BC #### [facility] [address] [place] [address] Dr. Rehana Martinez MCHC (RBC) [Mass/Vol] 33.1 g/dL Normal 29.9-35.2 [facility] Comment on above: Performed By: #### C BC #### [facility] [address] [place] [address] Dr. Rehana Martinez MCV (RBC) [Entitic vol] 92.9 fL Normal 80.0-94.0 [facility] Comment on above: Performed By: #### C BC #### [facility] [address] [place] [address] Dr. Rehana Martinez MONO # 1.1 103/ul Critically high 0.3-0.8 [facility] Comment on above: Performed By: #### C BC #### [facility] [address] [place] [address] Dr. Rehana Martinez Monocytes/100 WBC (Bld) 11.2 % Normal 1.7-12.0 [facility] Comment on above: Performed By: #### C BC #### [facility] [address] [place] [address] Dr. Rehana Martinez NEUT # 6.7 103/ul Critically high 1.4-6.5 [facility] Comment on above: Performed By: #### C BC #### [facility] [address] [place] [address] Dr. Rehana Martinez Neutrophils/100 WBC (Bld) 69.8 % Normal 43.0-75.0 [facility] Comment on above: Performed By: #### C BC #### [facility] [address] [place] [address] Dr. Rehana Martinez Platelet mean volume (Bld) [Entitic vol] 8.7 fL Critically low 9.5-13.5 [facility] Comment on above: Performed By: #### C BC #### [facility] [address] [address] [address] Rehana Martinez PLT 226 103/ul Normal 150-450 [facility] Comment on above: Performed By: #### C BC #### [facility] [address] [address] [address] Rehana Martinez RBC 4.91 106/ul Normal 4.70-6.10 [facility] Comment on above: Performed By: #### C BC #### [facility] [address] [address] [address] Rehana Martinez WBC 9.6 103/ul Normal 4.0-11.0 [facility] Comment on above: Performed By: #### C BC #### [facility] [address] [address] [address] Rehana Martinez FREE THYROXINE INDEX T7on FTI 3.37 Normal 1.30-4.50 [facility] Comment on above: Performed By: #### L IPID, CMP, TSH, URIC, T7 ####[facility] [address] [address]Dr. Rehana Martinez T3U 37.0 % Normal 33.0-40.0 [facility] Comment on above: Performed By: #### L IPID, CMP, TSH, URIC, T7 ####[facility] [address] [id number]. Rehana Martinez T4 [Mass/Vol] 9.10 ug/dL Normal 4.50-12.10 [facility] Comment on above: Performed By: #### L IPID, CMP, TSH, URIC, T7 ####[facility] [address] [id number]. Rehana Martinez GLYCOHEMOGLOBIN A1Con 2022 ADA RECOMMENDATION SEE BELOW Normal [facility] Comment on above: Result Comment: ADA RECOMMENDED LIMIT 4.0 - 6.0 ADA THERAPEUTIC TARGET < 7.0 ACTION SUGGESTED > 7.0 Performed By: #### A 1C #### [facility] [address] [place] [address] Dr. Rehana Martinez Glucose [Mass/Vol] 128 mg/dL Normal [facility] Comment on above: Performed By: #### A 1C #### [facility] [address] [place], [place] [address] Dr. Rehana Martinez HbA1c (Bld) [Mass fraction] 6.1 % Normal 4.5-6.2 [facility] Comment on above: Performed By: #### A 1C #### [facility] [address] [place], [place] [address] Dr. Rehana Martinez LIPID PROFILEon 07-25-2022 CHOL-HDL RATIO NORM SEE BELOW Normal [facility] Comment on above: Result Comment: 3.3 - 4.4 LOW RISK 4.4 - 7.1 AVERAGE RISK 7.1 - 11.0 MODERATE RISK >11.0 HIGH RISK Performed By: #### L IPID, CMP, TSH, URIC, T7 ####[facility] [address] [id number]. Rehana Martinez Cholesterol [Mass/Vol] 137 mg/dL Normal <=200 [facility] Comment on above: Performed By: #### L IPID, CMP, TSH, URIC, T7 ####[facility] [address] [id number]. Rehana Martinez Cholesterol in HDL [Mass/Vol] 44 mg/dL Normal 40-60 [facility] Comment on above: Performed By: #### L IPID, CMP, TSH, URIC, T7 ####[facility] [address] [id number]. Rehana Martinez Cholesterol in LDL [Mass/Vol] 75.6 mg/dL Normal [facility] Comment on above: Performed By: #### L IPID, CMP, TSH, URIC, T7 ####[facility] [address] [id number]. Rehana Martinez Cholesterol.total/ Cholesterol in HDL [Mass ratio] 3.1 {ratio} Normal [facility] Comment on above: Performed By: #### L IPID, CMP, TSH, URIC, T7 ####[facility] [address] [id number]. Rehana Martinez HDL NORMAL > or = 60 mg/dl - LO W CARDIOVASCULAR RISK <40 mg/dl - HIGH CARDIOVASCULAR RISK Normal [facility] Comment on above: Performed By: #### L IPID, CMP, TSH, URIC, T7 ####[facility] [address] [address]Dr. Rehana Martinez LDL CALC NORMAL SEE BELOW Normal [facility] Comment on above: Result Comment: <100 mg/dl OPTIMAL 100 - 129 mg/dl NEAR OR ABOVE OPTIMAL 130 - 159 mg/dl BORDERLINE HIGH 160 - 189 mg/dl HIGH >190 mg/dl VERY HIGH Performed By: #### L IPID, CMP, TSH, URIC, T7 ####[facility] [address] [address]Dr. Rehana Martinez Triglyceride [Mass/Vol] 87 mg/dL Normal <=150 [facility] Comment on above: Performed By: #### L IPID, CMP, TSH, URIC, T7 ####[facility] [address] [address]Dr. Rehana Martinez VLDL CALC 17.4 mg/dL Normal [facility] Comment on above: Performed By: #### L IPID, CMP, TSH, URIC, T7 ####[facility] [address] [address]Dr. Rehana Martinez PROF 14(COMP METB)on 023 Albumin [Mass/Vol] 3.3 g/dL Critically low 3.4-5.0 [facility] Comment on above: Performed By: #### L IPID, CMP, TSH, URIC, T7 ####[facility] [address] [address]Dr. Rehana Martinez Albumin/Globulin [Mass ratio] 0.9 {ratio} Normal [facility] Comment on above: Performed By: #### L IPID, CMP, TSH, URIC, T7 ####[facility] [address] [address]Dr. Rehana Martinez ALP [Catalytic activity/Vol] 105 U/L Normal 46-116 [facility] Comment on above: Performed By: #### L IPID, CMP, TSH, URIC, T7 ####[facility] [address] [address]Dr. Rehana Martinez ALT [Catalytic activity/Vol] 16 U/L Normal 16-63 [facility] Comment on above: Performed By: #### L IPID, CMP, TSH, URIC, T7 ####[facility] [address] [address]Dr. Rehana Martinez Anion gap [Moles/Vol] 11.8 mmol/L Normal [facility] Comment on above: Performed By: #### L IPID, CMP, TSH, URIC, T7 ####[facility] [address] [address]Dr. Rehana Martinez AST [Catalytic activity/Vol] 16 U/L Normal 15-37 [facility] Comment on above: Performed By: #### L IPID, CMP, TSH, URIC, T7 ####[facility] [address] [place], [place] [address]Dr. Rehana Martinez Bilirubin [Mass/Vol] 0.6 mg/dL Normal 0.2-1.0 [facility] Comment on above: Performed By: #### L IPID, CMP, TSH, URIC, T7 ####[facility] [address] [place], [place] [address]Dr. Rehana Martinez Calcium [Mass/Vol] 9.1 mg/dL Normal 8.5-10.1 [facility] Comment on above: Performed By: #### L IPID, CMP, TSH, URIC, T7 ####[facility] [address] [place], [place] [address]Dr. Rehana Martinez Chloride [Moles/Vol] 103 mmol/L Normal 98-107 [facility] Comment on above: Performed By: #### L IPID, CMP, TSH, URIC, T7 ####[facility] [address] [place], [place] [address]Dr. Rehana Martinez CO2 [Moles/Vol] 26.0 mmol/L Normal 21.0-32.[address] [facility] Comment on above: Performed By: #### L IPID, CMP, TSH, URIC, T7 ####[facility] [address] [address]Dr. Rehana Martinez Creatinine [Mass/Vol] 0.94 mg/dL Normal 0.70-1.30 [facility] Comment on above: Performed By: #### L IPID, CMP, TSH, URIC, T7 ####[facility] [address] [address]Dr. Rehana Martinez EGFR-AF BURKINAN >60 Normal >=[address] [facility] Comment on above: Performed By: #### L IPID, CMP, TSH, URIC, T7 ####[facility] [address] [address]Dr. Rehana Martinez EGFR-NON AF BURKINAN >60 Normal >=60 [facility] Comment on above: Performed By: #### L IPID, CMP, TSH, URIC, T7 ####[facility] [address] [address]Dr. Rehana Martinez Globulin (S) [Mass/Vol] 3.8 g/dL Normal [facility] Comment on above: Performed By: #### L IPID, CMP, TSH, URIC, T7 ####[facility] [address] [place], [place] [address]Dr. Rehana Martinez Glucose [Mass/Vol] 109 mg/dL Critically high 74-106 [facility] Comment on above: Performed By: #### L IPID, CMP, TSH, URIC, T7 ####[facility] [address] [place], [place] [address]Dr. Rehana Martinez Potassium [Moles/Vol] 3.8 mmol/L Normal 3.5-5.1 [facility] Comment on above: Performed By: #### L IPID, CMP, TSH, URIC, T7 ####[facility] [address] [place], [place] [address]Dr. Rehana Martinez Protein [Mass/Vol] 7.1 g/dL Normal 6.4-8.2 [facility] Comment on above: Performed By: #### L IPID, CMP, TSH, URIC, T7 ####[facility] [address] [place], [place] [address]Dr. Floriirene Juan Sodium [Moles/Vol] 137 mmol/L Normal 136-145 [facility] Comment on above: Performed By: #### L IPID, CMP, TSH, URIC, T7 ####[facility] [address] [place], [place] [address]Zj. Floriirene Juan Urea nitrogen [Mass/Vol] 17.0 mg/dL Normal 7.0-18.0 [facility] Comment on above: Performed By: #### L IPID, CMP, TSH, URIC, T7 ####[facility] [address] [id number]. Rehana Martinez Urea nitrogen/Creatinin e [Mass ratio] 18.1 mg/mg Normal [facility] Comment on above: Performed By: #### L IPID, CMP, TSH, URIC, T7 ####[facility] [address] [id number]. Rehana Martinez TSHon 07-25-2022 TSH 1.619 uIU/mL Normal 0.358-3.740 [facility] Comment on above: Performed By: #### L IPID, CMP, TSH, URIC, T7 ####[facility] [address] [id number]. Rehana Martinez URIC ACID SERUMon 07-25-2022 Urate [Mass/Vol] 5.7 mg/dL Normal 3.5-7.2 [facility] Comment on above: Performed By: #### L IPID, CMP, TSH, URIC, T7 #### [facility] [address] [id number] Rehana Martinez [facility] Fish and Urine Cyt o ([facility])on 04-06-2022 UVFISH & UC Diagnosis Info Invalid Interpretation Code [facility] Comment on above: Result Comment: A:Ur [...] cells analyzed: 115 Hematuria: Gross Description Site ID:Lucio color Pale Yellow fixative Alcohol Received 90 mls of clear pale yellow fluid with the patient's name and, Urine on the vial. Electronically signed by : on: 03/29/2022 10:51:08 Performed By: #### 1 [id number] ####[facility] [address] [place] [address] Patient Educationon 03-27-20 Patient Education Urology Benign [...] Follow these instructions at home: ? Take sjtd-onc-bjwzoia and prescription medicines only as told by [...] You d (more content not included)... Normal [facility] Urology Office/Clinic Noteon 03-27-2022 Urology Office/Clinic [...] [facility] [address], [place] [address]- Additional Instructions: 6 mos PSA free & total Patient Education Benign Prostatic Hyperplasia I, Inga Woodruff, personally scribed for Dr. Rausch on 03/27/2022 10:31:33. Documentation recorded by the scribeInga, accurately reflects the services(s) I performed and [...] Social Hist (more content not included)... Normal [facility] Comment on above: Result Comment: Elec tronically Signed By: Casper RAUSCH MD\.br\Date and Time Signed: 03/27/22 10:34 EDT\.br\Electronically Co-Signed By: Inga Woodruff\Date and Time Co-Signed: 03/27/22 10:32 EDT Coding Summary.on 03-22-2022 Coding Summary. CD:[id number] Gh0bWw+ PGhlYWQ+HB5OJKMyK94tvBLyzH7 ZD1xHPU9TKPDYKWIINN1VCK9vtL K3EEubN3BhzyWu GaomjDRjVX43TWl5VGC1gKhdOCl tgO4epDAqT2q2MoIdWE04oU20WD puKYSlThD9ZkWiavhurCZk P1pbOqTjiJVgSqf+PHRhYmxlIHd kBPKxBQyyPPShXdPnuKalRF3cNc 9yZGVyLWNvbGxhcHNlOiBj x9clXPLjMElcLE9suFbzE7EfzZU 3AGVwv3d8Bh04rVH+BPKqWHY9kX guSRkaw412DlEmx9jrMQU6 uSDgZBxoGBO8P75ze4O5VLHvKTC bGNE0hIE1tU0ilVtkoqxxW0KsyK EwYlI1QMU7rBPnqZ6nlJwp ygvejL6wMvj+H68LWF7YBYZZVS9 BGdo8S7HpLwmeyGZ+DW18ATCfNT 64rEFelOTuj5hblCc9YeRs XWDeWJG9sYocJQtki0YmESGiM77 acPDvp7Y4CKPlrFxlwFPlWnSmlF Q4nC3wATufaawkb9keoewt Rbqhi8axxg60lT27O42zTLspAXC qZNA7YZMfZIItpAcuav1ioR5qXg 8+JBryl3wpd3lxsTn9RgAw VHMouaVtrSknHWT9v2NoHv67I0J rpUyxb7GcUdq5qp99yTRug0I9cD T9TBetRWIwdA4sBPdyXtW5 LKZxYdFhgV22gLEcIEywYj7duSu nzWeaOT4dGWLtpygxOMPcgO6uGX AvtTMgbKghCA5uVDKiefhq y125YyAbPMA0GILsvISgC5GhyS2 sHtVjIUNkOQDlO4OrcDZoIFibB1 82NUlnQrN2TVQhmbErQ0Vn OPKxwDazAhX2c6Z8Te9Kx8Uxsax rTYM4RAujRSWxXyK6MtDqZgU0N7 PrSez6QJXwbZgdTJ6wJ6Ur RUAuaalmachjbSE2ESFpDRLozU7 0mGPgGSerIi6vn5C9b700FXNnPU IxwW16Rb3xhJbtHNDbnHWH qM3rnntiz1nykmroJxAsKGRwUTp 5IXg3ZNGgqLugQtGwLMT2KkR4PZ W7mIFfxP0dsAvdaxhntO3u Oyc+A29wjR5tMGQ0RLX6kcapCXG dedFwRU52AM61C4ZiFhaebKYacJ U+HXLbdgTahPvpKK7fQiOw q7bou6OdZCnpR8EuBYWgRHdtDoh 5ZDCpILA6kNA9cR1rUSVzGKyzo2 V9xHI3B2KwbhAege7jr4sf TRUoYEomG20biTFgk6N2HLBtqKK 5PVOavZxvCpGloQ86Xhm+PGNvbG zcn0WlFwwof0exl1kilTz2 JyKvFWFkwnDzjZszTZM8w4SdZo8 1G57kPEmoSVTsTSJnFIVlHFKfpR vhpk5gsW3gYr0+PGNvbCB3 uQT2dT1nETJjWjJ6TRsqN872UtC kcJDuVislb2syi7xoxCy4RzOnAH VwpvDyuOlnPIZ8r2HxQr55 F23zDWinMYSxBJGeYDUqLYGroXw ohy1luK1eCs4+LH4ro3edaq85kX 48dHI+QMFpRME3tCmeTYtx MVHmbF0jYXktPwG4CLZtSuCorL4 3eHIgSQqwGj6qpPscrIgbNB5xCN Hsruowl443XjHex3uhNBPz pEFjWFgwZZH5R78rd5D0HTAzWHD yDHV8nPL7mF9dlKjktvlgsJEjgE ttauIgmBhoBTieHGrbR821 IHRvcDsnPlBhdGllbnQgTmFtZTo 4Z1NyTby0TJYnaFgaNN7scIUcBS voXd3wjQkcvGehZN9vCQGo wcrnj995NyZth6diFFMyoMBpQMc hSUX0S19mu2A2SKQqRXUeHFR4gH F6lL8xkTfyaoawsMBxbVvk mkQnuFhgWUrcLRxqY552ZLPkvEm zXlLyhfXiZVNdvIW4DJ61XH38yR Xea9C9mRI6A5HiUQWqhecg yltpeWC8UITlROOgtG26Jo8esSy pTy7tNXJkBSH7MUOiqRBrO0VhuT 7vHoPiRNAjIZAeI8XerCZs CUvwY215BNwyMnL2LKMjvxFsE3E uAGFphBniUaY4j4W3Nw0OL9K1LW 30KQ02yUQfc1R9kWX7Y6Cm NUVyejjnxdqmbFU3EOJiNZMjeW0 7Uw1vpPcoFx3aSSGgQDO4NLZhaI KbI1KttV7vMgEfQWFbLZSa B4VzuIAsGJmqT147RMkcAoS8TDO exmMaR5ZkXUQadEttElJ6k4J6Mh 4FWGv1BN75VZ47iTHdb9R2 hVL5P6KjAMJkdlivhbplmUQ5IXG jOCLaaM93Ab4kfAezMa4nOJAgBX Z5JHFomHJqS5IppH5kNfDh WKBkKWQzJ0SdiGKqJCueP206GRh yJbO7BHDuawRtS2IxZVPyrMhzXi M6r5P7Ns0GZVAwIW94NQO5 zQP2GI52SQ21P0PsAfsdcSNhzZN +PHRhYmxlIHdpZHRoPScxMDAlJy WfaUgjTU7qUf4dKGWaAWDg jNhybXApVdFwr3ktSIFbAPkuVI5 scSlvC2XvhVW9MWZrj2y1Ar01Z0 9kP6VmbWF+WGRksUE8yNW8 xF5wTqNzCtD6ZOjtY724GxZbeVG vLpost6jdb1jwcJd6McQ6NEYcnn VwnCxpKEK7z8KdQr29B55b IHdpZHRoPSIxNSUiIHZhbGlnbj0 tlK8yIk7+KMXylPN7bMG9tA4uMd DlGoR9NAtpJ752YfEhkUYn Fhofe7dip0hzsZl4RoQhZUAuynE ixIerAMK0r1FeKe96G6MgrFpsr9 DvKyx9ob58lXBjr8R4uSJ5 B6GyBVUpbhulvEZeyIqpHH1hSHP kstjlARSzbJ0fMNOuM2f5PiQvKc J5GGscT3OusbY7FUIyxYMt PHuvCGO8C66qh5F9BPHsPIGuVIN 3aSD8dK1uzLgjfcclbQAxdHmudj CpvHscBIumAUatM594GNQo hAjlRWCkkC2mVJMjjHIynCcmBZ2 hBHTqilpiUpYRQcLsW5MwWAuIST 4gQTwvdGQ+NQAtIXF1vJir CEqaMIBotP8mKCViA7j6CyQoZkM 4OPbxM6WoASQdogioPs95zU0lSt BsOoW4SLpgI1IzcsR6GJLn kPQpGRotEMH1S04hl2F9ZOIoFPY uQOF5jYW9kL0btDaiwmdpaHVcqB rxgvVebYarYWxfLZxvP469 DFKdvCegNkX0MhLiJgG7ATN8B7H mIhe4XGIopQihAA0bvYLqAXfyKu 0drDdjjRrqSG8yUKJaaufl BXXmcL6wZLAhwLMwpAhdVX8lRZS nwztjo976WzQaHHA9PDYndSMaT2 QbeB3dFzGeUDIaKPYkZ7Xx rSSiEUloF839SDomVrS1IIXxfuU sI3VwWBPknRxeUvC5f7R8Ym70QB BZZWFyczwvdGQ+PHRkIHN0 fNmaGDsoNJYpvO2cMDEkG0x7MhS sOsB4MVevH4ScJMCrsxbeEp66pX 8iCdWuFdD4SGvrC4FzauH9 YCCwbTAuPDdsKFA5V27ub9W2GZU bGDJiQNR6mMZ2iB1uxXzuxwfblV VmdDsgdmVydGljYWwtYWxp Z438JVIagVktYz4xfZO4Z4KlDdq 7TYKoxQjgNP7ewKLfATsbKu0bbI bopBdfZC0jAWVislxrMQFq fA9iHMLamZKdsXgnUD5sOTNwfpp go081DgDgSGK2SPZrkBIjK1GehV 8hQrGsCKXvCJOaH5MeiYRp SFllS534OXnnSyI8XJOhofPyF3S iUZIbsHrwPrY3i7H8Ba4McIJnVA SbXJ35BD75LM64A4TaImoc dGFibGU+PHRhYmxlIHdpZHRoPSc tCGLlUgSquKrdIC5vPh6cFXOgSZ ZznNrzwBOgSmRzr9qxVWKn JHhrFF2trLbjI3LviIF0OSDst0r 9Nk06Z74eU6SgoTQ+UDPjhQM1oE N8pL4dIfBgZkR3VUedA059 JnNpeXRsEbdqx3xuh7kjvVe7FiP qTHSwdtWplZasMAM6r1ZsLj15M9 9sIHdpZHRoPSIyMCUiIHZh aJfsxn8mbS4vNr7+RUWqaSP8hSH 9xB3rPbVuKqP4QKmoS085IwIloY MeNucwO80nW1VgyGK+PHRy Ndd2UFGtsEhtXM0jsXKrURprGz3 uHTV7MmQjEtYyKZzsN8MrSFEwsg jvqrdlkEZ0VRUeJOLlrM02 Dp5waJdxBx2nYDYyUUD0LKWaoVZ dT3QumG1aTqUpKYQzIZQjY6OzzM EvMKcfC045DMffYzS4HIDu bbNdR0HfKOVetQnvMlK2r5K1Sk8 YtKqgfQQlAW0yFkYbLRz2T0RmOf n7WTRndJeyIJ6hdDZwFOnl Ak7ehGtwyPbgGD3vVWJdjxjak93 4GxBnk1ycOIOdpRAfLPtdYCR1O9 8no5Q0OMUwZIVwKRK5tHJ8 kD4osCgjaihmgWSqgOyavmPxjBe dRIpbAUkgZ675MDRwqHvjDyGHXg a5O2SuJfh2TWWzaLubIG6o fEJqJOfbTk1ucUluiAktUE2pAQB fizzhz640CcBil8vlXMNdzORnPP daPHD4T96jh6M2JYSaHWCd HQM0oRZ6yH8tgUzzciwuiIZveFf zqjYmxOceCXfsNThhF831OFRfhE dvUi0GXbh9A2RlTyf6XFEi fAmiNC0ywQSfTWvfMi8hzXgalQn jCQ2xBMWqdctqw431GgLpn5tgSP YhbOBvBCvuHRM1F38vn1U5 GSAoDYRpANR8qGP8tR7ybIvgodo gbGVmdDsgdmVydGljYWwtYWxpZ2 46IHRvcDsnPlBheWVyOjwv dGQ+VW10tu06Z1RgVnqvSpj5MSA kXXO1kSW9gG3jUNUbTBbdm5A2fG U1R3MxemYqul5le7tvXSMy ZTog (more content not included)... Normal [facility] Consent for Procedure/Surger yon 03-21-2022 Consent for Procedure/Surgery [id number]:127 Normal [facility] Consent for Treatmenton Consent for Treatment [id number]:127 Normal [facility] Inpatient Patient Summaryon 03-21-2022 Inpatient Patient Summary [place] [id number] Clinical Summary Person Information Name: GUI ORTIZ SR Age: 67 Years : 1955 Sex: Male PCP: Tyson Jaquez MD Marital Status: Phone: [phone] Race: White Ethnicity: or Language: Lao Visit Id: Visit 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 / ELEVATED PSA / HEMATURIA Speciality: Acuity: Enc Type: Outpatient Med Service: Surgery Arrival: 03/21/2022 10:25:04 Discharge: Dispo Type: Address: [address] [place] [id number] Provider Notes: Diagnosis: Problems Active Asymptomatic microscopic [...] Follow up: With: Address: When: Casper RAUSCH [address] [place] [id number] [facility] (1) Within 5 to 7 days With: Address: When: Casper RAUSCH [address] [place], [place] [id number] [facility] (1) Type Location Start Finish State URO Office Visit [facility] 05/22/2022 11:00 AM 05/22/2022 11:15 AM Confirmed Patient Education Information: [facility] IntraOperative Documentson 1 IntraOperative Documents [id number]:127 Normal [facility] Main OR Intraoperative Recor don 03-21-2022 Main OR Intraoperative Record IntraOp Document Type FTURO Summary Primary Physician: Casper RAUSCH MD Finalized Date/Time: 03/21/22 11:42:35 Pt. Name: GUI ORTIZ SR/Sex: 1955 Male Med Rec #: [id number] Physician: Casper RAUSCH MD Financial #: [id number] Pt. Type: O Room/Bed: / Admit/Disch: 03/21/22 10:25:04 - Institution: Case Times FTURO Entry 1 Patient Times In Room 03/21/22 11:15:00 Out Room 03/21/22 11:26:00 Procedure Times Start 03/21/22 11:17:00 Stop 03/21/22 11:23:00 Anesthesia Times Last Modified By: Mao EASON, Irina SCOTT 03/21/22 11:40:39 Case Attendance FTURO Entry 1 Entry 2 Entry 3 Case Attendee Casper RAUSCH MD RN, CNORNikole CST, Usha Arevalo Role Performed Surgeon - Primary Certified Nutritionist - Primary Scrub - Primary Time In 03/21/22 11:15:00 03/21/22 11:15:00 03/21/22 11:15:00 Time Out 03/21/22 11:26:00 03/21/22 11:26:00 03/21/22 11:26:00 Procedure CYSTOSCOPY LOCAL(.) CYSTOSCOPY LOCAL(.) CYSTOSCOPY LOCAL(.) Comments Last Modified By: Mao RN, ZAHRAAOR, Mao EASON, ZAHRAAOR, Mao RN, ZAHRAAOR, Irina 03/21/22 Irina 03/21/22 Irina 03/21/22 11:40:40 11:40:40 11:40:40 Surgical Procedures FTURO Entry 1 Procedure Description Procedure CYSTOSCOPY LOCAL Modifiers . Surgeon Description CYSTOSCOPY Primary Procedure Yes Primary Surgeon Casper RAUSCH MD 03/21/22 11:17:00 Stop 03/21/22 11:23:00 Anesthesia Type [...] Out Casper RAUSCH MD, Verified (If Participants SONIA Cavanaugh RN, Applicable) Nikole Arevalo CST Usha A Time Out Complete 03/21/22 11:16:00 Allergies [...] SONIA Cavanaugh RN, Ruthann 03/21/22 11:42 Normal [facility] Main OR Preoperative Recordo n 03-21-2022 Main OR Preoperative Record Holding Area Document Type FTURO Summary Primary Physician: Casper RAUSCH MD Finalized Date/Time: 03/21/22 11:17:09 Pt. Name: GUI ORTIZ SR/Sex: 1955 Male Med Rec #: [id number] Physician: Casper RAUSCH MD Financial #: [id number] Pt. Type: O Room/Bed: / Admit/Disch: 03/21/22 [...] Complaints of Pain: No Skin Integrity Intact, Smiley, Warm, & Dry Vitals - EU Blood Pressure 100/70 Pulse 59 bpm Respirations 16 br/min SPO2 98 % Additional CHANEL RN Reviewed Yes Specimens Collected Last Modified By: SONIA Cavanaugh RN, Ruthann 03/21/22 11:17:07 General Comments: Temp 36.4 Temporal Finalized By: SONIA Cavanaugh RN, Ruthann Document Signatures Signed By: Adwoa Little LPN 03/21/22 10:38 SONIA Cavanaugh RN, Ruthann 03/21/22 11:17 Normal [facility] Operative Reporton 2 Operative Report Patient: ANUJ ORTIZ SR [...] with antibiotic coverage, Follow up arranged. Normal [facility] Comment on above: Result Comment: Elec tronically Signed By: Casper RAUSCH MD\.br\Date and Time Signed: 03/21/22 11:28 EDT Outpatient Surgery Discharge Instructionon 03-21-2022 Outpatient Surgery Discharge Instruction [address] [address] Patient Discharge Instructions PERSON INFORMATION [...] Follow up: With: Address: When: Casper RAUSCH [address] [place] [phone] Business (1) Within 5 to 7 days With: Address: When: Casper RAUSCH [address] [place] [phone] Business (1) Type Location Start Finish State [place] Office Visit [facility] PRICILA Chavis 05/22/2022 11:00 AM 05/22/2022 11:15 AM Confirmed Comment: PATIENT EDUCATION INFORMATION Instructions: ANGEL Fox SR, GUI Valdes, have received the attached patient education materials/instructions and have verbalized understanding: May we do a follow up call? Yes No I was present when discharge instructions were given Patient Signature Date Clinican/Nurse Signature Date You may receive a survey from [employer] asking you to rate your care experience. Your feedback is important and will help us understand what we do well and how we can improve the quality of care we provide to you, your loved ones and our community. It?s an honor to serve you. Thank you for choosing [facility] Patient Educationon 03-21-20 Patient Education Normal [facility] Fish and Urine Cyt o ([facility])on 03-21-2022 [facility] Method of Extraction Voided [facility] Comment on above: Performed By: #### 1 [id number] ####[facility] [id number] [facility] [place] [address] [facility] Number of Jars 1 Invalid Interpretation Code [facility] Comment on above: Performed By: #### 1 [id number] ####[facility] [address] [facility] [place] [address] [facility] Specimen Urine Normal [facility] Comment on above: Performed By: #### 1 [id number] ####[facility] [address] [facility] [place] [address] [facility] Type of Service Technical Only Normal [facility] Comment on above: Performed By: #### 1 [id number] ####[facility] [address] [facility] [place] [address] Lab Reportson 03-15-2022 Lab Reports [id number]:127 Normal [facility] PSA, FREE AND TOTAL RATIOon 03-13-2022 % Free PSA 15.5 % Normal [facility] Comment on above: Result Comment: The [...] men. Performed By: #### P SAFREE #### [facility] [address] [place] [id number] [address] Rehana Martinez Prostate specific Ag [Mass/Vol] 4.9 ng/mL Critically high 0.0-4.0 [facility] Comment on above: Result Comment: Arnoldo CHOPRAIA methodology. . According to the [employer], Serum PSA should decrease and [...] disease. Performed By: #### P SAFREE #### [facility] [address] [address] [address] Rehana Martinez PSA, Free 0.76 ng/mL Normal N/A [facility] Comment on above: Result Comment: Arnoldo benedict ECLIA methodology. Performed By: #### P SAFREE #### [facility] [address] [address] [address] Rehana Matrinez CREATININEon 12-14-2021 Creatinine [Mass/Vol] 1.01 mg/dL Normal 0.70-1.30 [facility] Comment on above: Performed By: #### C MAXINE #### [facility] [address] [place] [address] Dr. Rehana Martinez EGFR-AF BURKINAN >60 Normal >=60 [facility] Comment on above: Performed By: #### C MAXINE #### [facility] [address] [place] [address] Dr. Rehana Martinez EGFR-NON AF BURKINAN >60 Normal >=60 [facility] Comment on above: Performed By: #### C MAXINE #### [facility] [address] [place] [address] ABD/PELV W CONon 12-15-[address] ABD/PELV W CON EXAMINATION: CT ABD/ [...] by: BRANDIE RUDD Date: 2021-12-14 11:36 Normal [facility] Vital Signs Date Time Vital Sign Value Performing Clinician Yunier nunez 03-27-2022 10:11-0400 Blood Pressure Location Casper Personera [facility] 03-27-2022 10:11-0400 Diastolic blood pressure 57 mm[Hg] Casper Personera [facility] 03-27-2022 10:11-0400 Heart rate 57 /min Casper Personera [facility] 03-27-2022 10:11-0400 Respiratory rate 16 /min Casper Personera [facility] 03-27-2022 10:11-0400 Systolic blood pressure 154 mm[Hg] Casper Personera [facility] 12-05-2021 08:16-0400 Blood Pressure Location Monica Mondragon Jr. [facility] 12-05-2021 08:16-0400 Diastolic blood pressure 84 mm[Hg] Monica Mondragon Jr. [facility] 12-05-2021 08:16-0400 Heart rate 75 /min Monica Mondragon Jr. [facility] 12-05-2021 08:16-0400 Systolic blood pressure 118 mm[Hg] Monica Mondragon Jr. [facility] Encounters Encounter Date Encounter Type Care Provider Facility Start: 02-11-2024 ambulatory ELIZABETH Teague ty:PRICILA [place] Start: 07-18-2023 End: 07-18-2023 ambulatory MAYELINCHARLES WOLFE [facility] Start: 07-08-2023 Evaluation and manag ement of inpatient [facility] [place] Start: 07-07-2023 Evaluation and manag ement of inpatient [facility] Start: 07-06-2023 Evaluation and manag ement of inpatient [facility] Start: 07-05-2023 Evaluation and manag ement of inpatient [facility] Start: 07-05-2023 End: 07-09-2023 Evaluation and management of inpatient [facility] Start: 05-16-2023 ambulatory JUANITA [facility] Start: 05-14-2023 End: 05-14-2023 ambulatory VALENTINA CABRERA [facility] Start: 05-06-2023 Evaluation and manag ement of inpatient ELINA HOLLEY [facility] Start: 05-03-2023 End: 05-04-2023 ambulatory [facility] Start: 05-01-2023 Evaluation and manag ement of inpatient SAEID KIMBALL [facility] Start: 04-30-2023 Evaluation and manag ement of inpatient [facility] Start: 04-30-2023 Evaluation and manag ement of inpatient [facility] Start: 04-30-2023 Evaluation and manag ement of inpatient [facility] Start: 04-29-2023 Evaluation and manag ement of inpatient [facility] Start: 04-27-2023 Evaluation and manag ement of inpatient [facility] Start: 04-26-2023 Evaluation and manag ement of inpatient [facility] Start: 04-25-2023 Evaluation and manag ement of inpatient [facility] Start: 04-25-2023 Evaluation and manag ement of inpatient KAREY Dhaliwal [facility] Start: 04-24-2023 Evaluation and manag ement of inpatient [facility] Start: 04-24-2023 Evaluation and manag ement of inpatient [facility] Start: 04-23-2023 Evaluation and manag ement of inpatient CESAR [facility] Start: 04-23-2023 [facility]ment [facility] Start: 04-23-2023 End: 04-24-2023 Evaluation and management of inpatient [facility] Start: 04-23-2023 Evaluation and manag ement of inpatient KAREY SAWANT [facility] Start: 04-23-2023 Evaluation and manag ement of inpatient KAREY SAWANT [facility] Start: 04-22-2023 Evaluation and manag ement of inpatient [facility] Start: 04-22-2023 Evaluation and manag ement of inpatient [facility] Start: 04-22-2023 Evaluation and manag ement of inpatient KAREY Dhaliwal [facility] Start: 04-22-2023 End: 05-01-2023 Evaluation and management of inpatient [facility] Start: 04-09-2023 End: 04-10-2023 Encounter for preprocedural cardiovascular examination [facility] Start: 04-09-2023 End: 04-10-2023 ambulatory [facility] Start: 04-04-2023 ambulatory [facility] Start: 03-23-2023 Evaluation and manag ement of inpatient KAREY Dhaliwal [facility] Start: 03-23-2023 Evaluation and manag ement of inpatient KAREY Dhaliwal [facility] Start: 03-23-2023 Evaluation and manag ement of inpatient DOMENIC [facility] Start: 03-22-2023 Evaluation and manag ement of inpatient JENNA [facility] Start: 03-22-2023 Evaluation and manag ement of inpatient RODGER [facility] Start: 03-21-2023 End: 03-23-2023 Evaluation and management of inpatient DOMENIC [facility] Start: 01-29-2023 End: 01-30-2023 ambulatory ELIZABETH LINDSAY Facility:[facility] Start: 01-29-2023 End: 01-29-2023 Patient encounter procedure ELIZABETH LINDSAY [facility] Start: 09-11-2022 ambulatory [facility] Start: 09-06-2022 End: 09-07-2022 ambulatory [facility] Start: 09-04-2022 ambulatory [facility] Start: 08-06-2022 End: 08-07-2022 ambulatory [facility] Start: 08-04-2022 End: 08-05-[address] TYSON JAQUEZ . Facility: Start: 07-25-2022 End: 07-26-[address] TYSON JAQUEZ . Facility: Start: 03-27-2022 End: 03-28-2022 ambulatory Casper RAUSCH Facility:[facility] Start: 03-27-2022 End: 03-27-2022 Patient encounter procedure Casper RAUSCH [facility] Start: 03-21-2022 End: 03-22-2022 ambulatory Casper RAUSCH Facility:[facility] Start: 03-21-2022 End: 03-21-2022 Patient encounter procedure Casper RAUSCH [facility] Start: 03-12-2022 End: 03-13-[address] CASPER RAUSCH Facility: Start: 02-05-2022 End: 02-05-2022 Patient encounter procedure Monica Mondragon Jr. [facility] Start: 12-14-2021 End: 12-15-2021 ambulatory MONICA MONDRAGON JR Facility: Start: 12-05-2021 End: 12-05-2021 Patient encounter procedure Monica Mondragon Jr. [facility] Procedures Date Procedure Procedure Detail Performing Clinician Start: 05-16-2023 Follow-up visit MICHAEL IE PATRICK Start: 05-14-2023 Follow-up visit MICHAEL IE PATRICK Start: 04-04-2023 Follow-up visit MICHAEL IE PATRICK Start: 09-11-2022 Follow-up visit MICHAEL IE PATRICK Start: 09-04-2022 Follow-up visit MICHAEL IE PATRICK Start: 07-25-[address] FABIOLA JAQUEZ . Comment on above: Performed By: #### P [facility] #### [facility] [address] [place] [address] Dr. Rehana Martinez Start: 03-21-2022 Cystoscopy ELIZABETH JOHNSTON Start: 12-14-[address] FABIOLA JAQUEZ . Comment on above: Performed By: #### P SAD ####[facility] [id number] [place], [place] [address]F[address]arr [place] Start: 01-23-2018 Cystoscopy Monica stephen Jr. Comment on above: 07/22/09, 01/23/18 07/22/09, 01/23/18 Immunizations Immunization Date Immunization Notes Care Provider Fa cility 06-20-2021 SARS-CoV-2 (COVID-19 ) mRNA BNT-162b2 vax Casper RAUSCH [facility] 09-13-2020 SARS-CoV-2 (COVID-19 ) Ad26 vaccine, recombinant Monica Mondragon Jr. [facility] 08-22-2020 SARS-CoV-2 (COVID-19 ) Ad26 vaccine, recombinant Monica Mondragon Jr. [facility] NEGATED: Highlighted row has not occurred!12-05-2021 influenza virus vaccine, unspecified formulation Monica Mondragon Jr. [facility] Payers Date Payer Category Payer Medicare [id number] 1960 Unknown [id number] 1955 Unknown [id number] 2.16.84 [id number] 1955 Unknown [id number] 2.16.84 [id number] 1955 Unknown [id number] 2.16.84 [id number] 1955 Unknown [id number] 2.16.84 [id number] 1955 Unknown [id number] 2.16.8 [id number] 1955 Unknown [id number] 2.16.8 [id number] 1955 Unknown [id number] 2.16.8 [id number] 1955 Unknown [id number] 2.16.8 [id number] Social History Date Type Detail Facility Start: 12-05-2021 Tobacco smoking status Heavy t obacco smoker (finding) [facility] Sex Assigned At Male [facility] Functional Status Date Assessment Result Facility 01-29-2023 Functional Status N/A [facility] 03-27-2022 Functional Status N/A [facility] 03-15-2022 Functional Status N/A [facility] 12-05-2021 Functional Status N/A [facility]un Clinical Notes 05-23-2021 to 07-18-2023 LaboratoryLaboratoryLaboratoryLaboratory Note Date & Type Note Facility 07-18-2023 Note [facility] 07-18-2023 Note [facility] 07-18-2023 Note Increase imdur to 60 mg daily, decrease coreg back to 3.125 mg bid in light of bradycardia and somewhat labile B/P. [facility] 07-18-2023 Note [facility] 07-18-2023 Note [facility] 07-09-2023 Note [facility] 07-09-2023 Note [facility] 07-09-2023 Note [facility] 07-08-2023 Note [facility] 07-07-2023 Note [facility] 07-07-2023 Note [facility] 07-06-2023 Note [facility] 07-02-[address] chest wo [facility] 05-16-2023 Note [facility] 05-16-2023 Note [facility] 05-16-2023 Note [facility] 05-14-2023 Note [facility] 05-14-2023 Note [facility] 05-01-2023 Note Patient provided a c opy of the AVS. All questions answered. Patient discharged with belongings and taken down with transport via wheelchair and family at bedside. [facility] 05-01-2023 Note [facility] 05-01-2023 Note [facility] 05-01-2023 Note [facility] 05-01-2023 Note [facility] 04-30-2023 Note [facility] 04-30-2023 Note [facility] 04-29-2023 Note [facility] 04-29-2023 Note [facility] 04-29-2023 Note [facility] 04-29-2023 Note [facility] 04-28-2023 Note [facility] 04-28-2023 Note [facility] 04-27-2023 Note [facility] 04-27-2023 Note [facility] 04-27-2023 Note [facility] 04-27-2023 Note [facility] 04-26-2023 Note [facility] 04-26-2023 Note [facility] 04-26-2023 Note [facility] 04-26-2023 Note [facility] 04-26-2023 Note [facility] 04-26-2023 Note [facility] 04-25-2023 Note [facility] 04-25-2023 Note Attempted to call wi fe to get information and give updates. Was unable to reach her, will continue to try. [facility] 04-25-2023 Note [facility] 04-25-2023 Note [facility] 04-25-2023 Note [facility] 04-24-2023 Note Patient is still on vent support. Per RN was off and placed back on yesterday. Consult for s/p CABG. SW to follow. [facility] 04-24-2023 Note [facility] 04-24-2023 Note Physical Therapy Patient intubated/sedated at this time. PT will check back and follow as appropriate. Stella Bustos, CHANTEL [facility] 04-24-2023 Note [facility] 04-24-2023 Note Occupational Therapy Cancel Note Reason: Patient intubated and sedated at this time. OT will continue to follow and will re-attempt as able. Time in: 0808 Check no charge Thelma CAMEJO, OTR/L, CLT [facility] 04-24-2023 Note [facility] 04-24-2023 Note [facility] 04-23-2023 Note [facility] 04-23-2023 Note [facility] 04-23-2023 Note [facility] 04-23-2023 Note [facility] 04-23-2023 Note [facility] 04-22-2023 Note TRIGGER: PRESSURE 1:1 FULLY AUGMENTED [facility] 04-22-2023 Note TRIGGER: PRESSURE 1:1 FULLY AUGMENTED [facility] 04-22-2023 Note INSERTED WITHOUT COM PLICATION USING STERILE TECHNIQUE; DRAINING CLEAR YELLOW URINE; TO BE MONITORED BY ANESTHESIA FOR DURATION OF THE CASE [facility] 04-22-2023 Note [facility] 04-22-2023 Note [facility] 04-22-2023 Note [facility] 04-09-2023 Note [facility] 04-09-2023 Note [facility] 04-04-2023 Note [facility] 04-01-2023 Note [facility] 03-23-2023 Note [facility] 03-23-2023 Note [facility] 03-22-2023 Note [facility] 03-22-2023 Note [facility] 09-11-2022 Note [facility] 09-04-2022 Note I reviewed with the resident the medical history and the resident???s findings on physical examination. I discussed with the resident the patient???s diagnosis and concur with the treatment plan as documented in the resident note. Shmuel Vásquez MD [facility] 09-04-2022 Note [facility] 03-27-2022 Hospital Discharge instructions Patient Education [...] urethra. Follow these instructions at home: Take lbmm-dup-otecqtk and prescription medicines only as told by [...] 06/03/2006 Document Revised: 04/28/2019 Document Reviewed: 07/08/2017 [employer] Patient Education 2020 [employer]. Follow Up Care 03/21/2022 11:25:28 With:Giancarlo Campbell MD, ORLIN Pena Address: [facility] [address] [place] [address]- When: Unknown [facility] 03-21-2022 Note [id number]:[id number] [facility] 02-27-2022 Hospital Discharge instructions Follow Up Care 02/27/2022 13:20:12 With:Casper RAUSCH Address: [address] [place] [phone]- Business (1) When:5 to 7 days With:Casper RAUSCH Address: [address] [place] [address]- Business (1) When: Unknown [facility] 12-05-2021 Hospital Discharge instructions Patient Education [...] Follow these instructions at home: Medicines Take bdiu-eac-xlwuhmj and prescription medicines only as told by [...] or the blood stops without treatment. Take dkzn-ocz-xqfhqor and prescription medicines only as told by your health care provider. Drink enough fluid to keep your urine clear or pale yellow. This information is not intended to replace advice given to you by your health care provider. Make sure you discuss any questions you have with your health care provider. Document Released: 06/03/2006 Document Revised: 10/28/2019 Document Reviewed: 07/06/2017 [employer] Patient Education 2020 [employer]. Follow Up Care 05/30/2021 15:33:59 With:Monica Mondragon Jr., MD, URO Address: [facility] [address], [place] [address] [phone] When: Unknown [facility] 05-23-2021 Hospital Discharge instructions Follow Up Care 05/23/2021 11:27:47 With:ELIZABETH LINDSAY PA-C, URL Address: [facility] [address]ie Alt[address] [place] [address] When:Within 1 Year(s) Comments:w/PSA [facility] Evaluation + Plan note Future Appointments Appointment Date:05/22/2022 11:00:00 AM Scheduled Provider:Monica Mondragon Jr., MD Location:[facility] Appointment Type:URO Office Visit Diagnostic Tests PendingPSA Total 12/05/21 Future Scheduled TestsPSA Free & Total 05/30/21 [facility] Evaluation + Plan note Future Appointments Appointment Date:05/22/2022 11:00:00 AM Scheduled Provider:Monica Mondragon Jr., MD Location:[facility] Appointment Type:URO Office Visit Future Scheduled TestsPSA Free & Total 05/30/21 [facility] Evaluation + Plan note Future Appointments Appointment Date:03/27/2022 09:45:00 AM Scheduled Provider:Casper RAUSCH MD Location:[facility] Appointment Type:URO Office Visit Appointment Date:05/22/2022 11:00:00 AM Scheduled Provider:Monica Mondragon Jr., MD Location:[facility] Appointment Type:URO Office Visit Diagnostic Tests PendingUroVysion Fish and Urine Cyto ([facility]) 03/21/22 Future Scheduled TestsPSA Free & Total 05/30/21 [facility] Evaluation + Plan note Future Appointments Appointment Date:09/18/2022 09:15:00 AM Scheduled Provider:Monica Mondragon Jr., MD Location:[facility] Appointment Type:URO Office Visit Diagnostic Tests PendingPSA Free & Total 06/17/22 Future Scheduled TestsPSA Free & Total 05/30/21 [facility] Evaluation + Plan note Future Appointments Appointment Date:02/11/2024 08:30:00 AM Scheduled Provider:ELIZABETH LINDSAY PA-C Location:[facility] Appointment Type:URO Office Visit Diagnostic Tests PendingPSA Total 01/29/23 [facility] Hospital course Narrative No data available for this section [facility] Hospital Discharge instructions No data available for this section [facility] [place] note No data available for this section [facility] Summary Purpose Family History No Family History Records FoundNo Family History Records FoundNo Family History Records Found Advance Directives No Advanced Directives Records FoundNo Advanced Directives Records FoundNo Advanced Directives Records Found Additional Source Comments Care Team (unrecognized sect ion and content) Personnel Name: Tyson Jaquez MD Address: [address] [place] [address] Personnel Name: Tyson Jaquez MD Address: [address] [place] [address] Personnel Name: Tyson Jaquez MD Address: Address: [address] [place] [address] Personnel Name: Tyson Jaquez MD Address: Address: [address] [place] [address] Personnel Name: Tyson Jaquez MD Address: Address: [address] [place] [address] (unrecognized sect ion and content) No Status Records FoundNo Status Records FoundNo Status Records Found INFORMATION SOURCE (unrecogn ized section and content) DATE CREATED AUTHOR 08/10/2022 [facility] DATE CREATED AUTHOR AUTHOR'S ORGANIZ ATION 02/13/2023 [facility] DATE CREATED AUTHOR AUTHOR'S ORGANIZ ATION 07/21/2023 [facility] FOR RECORDS PERTAINING TO PATIENTS WHO [...] BE BASED ON THE PRIMARY CLINICAL RECORDS. [employer] provides no warranty or guarantee of the accuracy or completeness of information in this document.
[2023-07-25 08:48] LABS: Anion Gap 9.9; BUN Creatinine Ratio 15.7; Calcium 9.3 mg/dL (8.5-10.1); Carbon Dioxide 27.8 mmol/L (21.0-32.0); Chloride 106 mmol/L (98-107); Estimated GFR (African America >60 (>=60); Estimated GFR (Non-African Ame >60 (>=60); Glucose 127 mg/dL (74-106); Potassium 3.7 mmol/L (3.5-5.1); Sodium 140 mmol/L (136-145)
== END 2023-07-25 08:12 | disposition home or self-care (01) ==
LOC: LAB 08:12
PROVIDERS: PCP Family Medicine; Visit Provider Nurse Practitioner
DX: I25.10 Atherosclerotic heart disease of native coronary artery without angina pectoris (principal)
CPT/HCPCS: 36415; 80048

== ENCOUNTER 2023-07-26 07:50 | Outpatient (OUT) | payer MEDICARE, SELFPAY ==
--- NOTE | 2023-07-26 | PCN_ITS ---
CARDIAC STRESS TEST Requesting Physician: Juliette Odell NP Procedure Date: 07/26/2023 Providing Performer: Edward Gray M.D. INDICATION: CAD, CABG, chest pain. STRESS TEST TYPE: Treadmill, Lexiscan myocardial perfusion scan. RESTING EKG: Poor R-wave progression indicating possible anterior infarct, age indeterminate, non-specific ST changes. PROTOCOL: [place]. RESTING HEART RATE: 79 PEAK HEART RATE: 115 PEAK MAXIMAL HEART RATE: Did not reach target maximal heart rate. ST CHANGES: T-wave inversion, ST depression with horizontal and downsloping changes noted, bigeminy. SYMPTOMS: Chest pain, dyspnea, fatigue. ARRHYTHMIAS: PVCs, PACs. CONCLUSION: 1. Resting EKG with poor R-wave progression, non-specific ST changes. 2. Treadmill stress test inconclusive due to target heart rate not met; however, patient did have significant horizontal and downsloping ST changes meeting the criteria of ischemia at heart rate of 115, which is below target heart rate. Additionally, patient complained of chest pain at the time. ST changes persisted well into recovery. 3. On the Lexiscan EKG portion, there were no definite EKG changes meeting the criteria of ischemia after Lexiscan injection. 4. This is a high risk stress test. Clinical correlation is recommended. 5. Nuclear myocardial perfusion scan to be interpreted and reported in separate document. Please refer to that report. MTDD
--- NOTE | 2023-07-26 07:45 | NM_ITS ---
Patient Name: ESEQUIEL ORTIZ MR#: [id number] : 1955 Exam Date: 07/26/2023 Ordering Doctor: MAYELIN WOLFE RADIOLOGY REPORT PROCEDURE: NM MATT PERF SPECT REST STR COMPARISON: None. INDICATIONS: NON-ST EVELATION MYOCARDIAL INFARCTION ATHERSCLEROSIS BYPASS TECHNIQUE: Exam Description: Stress/Rest one day protocol gated SPECT Rest Imagin.6 mCi Tc-99m Cardiolite IV on 07/26/2023 Stress Imaging 30.3 mCi Tc-99m Cardiolite IV on 07/26/2023 Exercise Protocol: 0.4 mg Lexiscan given IV Heart Rate (bpm): Rest: 79 Max: 95 PMHR: 62 Blood Pressure: Rest: 168/90 Max: 168/90 Symptoms: Rest and peak stress ECG findings were pending and the exercise portion of the study was pending per attending physician Dr. ARCE . For more details please see separate cardiac stress test report. FINDINGS: QUALITY OF STUDY: Good. PERFUSION DEFECT: LOCATION: Basal anteroseptal. Basal inferoseptal. Mid-anteroseptal. Mid-inferoseptal. Apical septal. Apical inferior. [place]. SIZE: Large (5 or more segments). SEVERITY: Moderate to Severe. TYPE: Persistent. WALL MOTION: Mild hypokinesis: LV SIZE: Normal. 106 mL. TID / TCD: None; 1.0 LVEF: Normal. Calculated EF 56%. SUMMARY: Myocardial perfusion imaging study has ABNORMAL findings. CONCLUSION: 1. Large area of moderate to severe decreased uptake in the septum extending into the anterior and inferior lacey with no definite redistribution to suggest reversible ischemia 2. Borderline low left ventricular ejection fraction of 56% 3. Pending exercise test Dictated by: Lenard Field MD on 07/26/2023 at 14:00 Approved by: Lenard Field MD on 07/26/2023 at 14:08
--- OUTSIDE RECORDS SUMMARY | 2023-07-26 07:56 | XMS_ITS | CCD ---
Author Name Unknown Address [address] [place] [address] Organization [facility] Care Team Providers Care Networks Software Consultant Name Role Phone Tyson Jaquez Primary Care [...] MONROY Referring Unavailable CARRIZO, CHAITANYA Referring Unavailable JIGARSEAID MONROY Referring Unavailable CARRIZO, CHAITANYA Referring Unavailable [...] Medication Allergies] Propensity to adverse reactions (disorder) [facility] Repository Medications Current Medications Medication Drug [...] 90 cap(s), Refills(s) 3, [id number], cm, 12/05/21 8:20:00 EDT, Height/Length [...] procedure, # 2 cap(s), Refills(s) 0, Pharmacy: [facility]/pharmacy #[id number], 162, cm, 12/05/21 [...] Unstable angina; Translations: [Atherosclerotic heart disease of [place] coronary artery with other forms of angina [...] Reference Range Facility 37on 07-18-2023 37 Normal [facility] Follow-Upon 07-18-2023 Follow-Up Normal [facility] 30on 07-09-2023 30 Normal [facility] BASIC METABOLIC PANELon 06-18 Anion gap [Moles/Vol] 11 mmol/L Normal 7-20 [facility] Comment on above: Performed By: #### L [id number] ####[facility] ([facility])[address] [place] [address] Calcium [Mass/Vol] 9.0 mg/dL Normal 8.6-10.3 [facility] Comment on above: Performed By: #### L [id number] ####[facility] ([facility])[address] [place] [address] Chloride [Moles/Vol] 105 mmol/L Normal 98-107 [facility] Comment on above: Performed By: #### L [id number] ####[facility] ([facility])[address] [place] [address] CO2 [Moles/Vol] 22 mmol/L Normal 21-31 [facility] Comment on above: Performed By: #### L [id number] ####[facility] ([facility])[address] [place] [address] Creatinine [Mass/Vol] 0.89 mg/dL Normal 0.70-1.30 [facility] Comment on above: Performed By: #### L [id number] ####[facility] ([facility])[address] [place] [address] GLOMERULAR FILTRATION RATE ML/MIN/1.73 SQ M.PREDICTED 92.8 mL/min/1.73m*2 Normal >60.0 [facility] Comment on above: Result Comment: The [facility]???s estimated glomerular filtration rate (eGFR) will no [...] of individuals. Performed By: #### L [id number] ####[facility] ([facility])[address] [place] [address] Glucose [Mass/Vol] 102 mg/dL High 70-100 [facility] Comment on above: Performed By: #### L [id number] ####[facility] ([facility])[address] [place] [address] Potassium [Moles/Vol] 3.5 mmol/L Normal 3.5-5.1 [facility] Comment on above: Performed By: #### L [id number] ####[facility] ([facility])[address] [place] [address] Sodium [Moles/Vol] 134 mmol/L Low 136-145 [facility] Comment on above: Performed By: #### L [id number] ####[facility] ([facility])[address] [place] [address] Urea nitrogen [Mass/Vol] 16 mg/dL Normal 7-25 [facility] Comment on above: Performed By: #### L [id number] ####[facility] ([facility])[address] [place] [address] UREA NITROGEN/CREATININ E (MASS RATIO) IN SER/PLAS 18.0 [facility] Comment on above: Performed By: #### L [id number] ####[facility] ([facility])[address] [place] [address] DSon 07-09-2023 DS Normal [facility] Orders Onlyon 07-09-2023 Orders Only [id number] Gui Ortiz Sr. 1955 M Date Provider Department Center 07/09/2023 MAYELIN HAMMONDS Inocencio . Family History Family history unknown: Yes [facility] 30on 07-08-2023 30 The patient is Moder ately Stable - Low risk of patient condition declining or worsening The patient's goals for the shift include comfort The clinical goals for the shift include vss Normal [facility] 30 Normal [facility] ANESon 07-08-2023 ANES [facility] ANTI-XA (HEPARIN LEVEL)on HEPARIN UNFRACTIONATED (U/ML) IN PPP BY CHROMOGENIC METHOD 0.39 IU/mL Normal 0.3-0.7 [facility] Comment on above: Order Comment: Check anti-Xa level every 6 hours while on heparin infusion, or per protocol. Result Comment: [place] roxaban and Apixaban will interfere with the anti Xa assay used to monitor UFH and LMWH. Performed By: #### L [id number] ####[facility] ([facility])[address] [place] [address] BASIC METABOLIC PANELon 06-18 Anion gap [Moles/Vol] 11 mmol/L Normal 7-20 [facility] Comment on above: Performed By: #### L [id number] ####[facility] ([facility])[address] [place] [address] Calcium [Mass/Vol] 10.0 mg/dL Normal 8.6-10.3 [facility] Comment on above: Performed By: #### L [id number] ####[facility] ([facility])[address] [place] [address] Chloride [Moles/Vol] 105 mmol/L Normal 98-107 [facility] Comment on above: Performed By: #### L [id number] ####[facility] ([facility])[address] [place] [address] CO2 [Moles/Vol] 26 mmol/L Normal 21-31 [facility] Comment on above: Performed By: #### L [id number] ####[facility] ([facility])[address] [place] [address] Creatinine [Mass/Vol] 1.02 mg/dL Normal 0.70-1.30 [facility] Comment on above: Performed By: #### L [id number] ####[facility] ([facility])[address] [place] [address] GLOMERULAR FILTRATION RATE ML/MIN/1.73 SQ M.PREDICTED 79.6 mL/min/1.73m*2 Normal >60.0 [facility] Comment on above: Result Comment: The [facility]???s estimated glomerular filtration rate (eGFR) will no [...] of individuals. Performed By: #### L [id number] ####[facility] ([facility])[address] [place] [address] Glucose [Mass/Vol] 112 mg/dL High 70-100 [facility] Comment on above: Performed By: #### L [id number] ####[facility] ([facility])[address] [place] [address] Potassium [Moles/Vol] 4.5 mmol/L Normal 3.5-5.1 [facility] Comment on above: Performed By: #### L [id number] ####[facility] ([facility])[address] [place] [address] Sodium [Moles/Vol] 137 mmol/L Normal 136-145 [facility] Comment on above: Performed By: #### L [id number] ####[facility] ([facility])[address] [place] [address] Urea nitrogen [Mass/Vol] 15 mg/dL Normal 7-25 [facility] Comment on above: Performed By: #### L [id number] ####[facility] ([facility])[address] [place] [address] UREA NITROGEN/CREATININ E (MASS RATIO) IN SER/PLAS 14.7 Normal [facility] Comment on above: Performed By: #### L [id number] ####[facility] ([facility])[address] [place] [address] CBCon 07-08-2023 Erythrocyte distribution width (RBC) [Ratio] 13.5 % Normal 11.5-15.0 [facility] Comment on above: Performed By: #### L [id number] ####[facility] ([facility])[address] [place] [address] ERYTHROCYTE MEAN CORPUSCULAR HEMOGLOBIN CONCENTRATION (G/DL) BY AUTOMATED 33.0 g/dL Normal 32.0-35.0 [facility] Comment on above: Performed By: #### L [id number] ####[facility] ([facility])[address] [place] [address] Hematocrit (Bld) [Volume fraction] 39.4 % Normal 39.0-55.0 [facility] Comment on above: Performed By: #### L [id number] ####[facility] ([facility])[address] [place] [address] Hemoglobin (Bld) [Mass/Vol] 13.0 g/dL Normal 13.0-17.0 [facility] Comment on above: Performed By: #### L [id number] ####[facility] ([facility])[address] [place] [address] MCH (RBC) [Entitic mass] 29.1 pg Normal 27.0-33.0 [facility] Comment on above: Performed By: #### L [id number] ####[facility] ([facility])[address] [place] [address] MCV (RBC) [Entitic vol] 88.3 fL Normal 82.0-98.0 [facility] Comment on above: Performed By: #### L [id number] ####[facility] ([facility])[address] [place] [address] PLATELETS (10*3/UL) IN BLOOD AUTOMATED COUNT 248 10*3/uL Normal 150-400 [facility] Comment on above: Performed By: #### L [id number] ####[facility] ([facility])[address] [place] [address] RBC (Bld) [#/Vol] 4.46 10*6/uL Normal 4.20-5.70 [facility] Comment on above: Performed By: #### L [id number] ####[facility] ([facility])[address] [place] [address] WBC (Bld) [#/Vol] 7.02 10*3/uL Normal 4.00-10.60 [facility] Comment on above: Performed By: #### L [id number] ####[facility] ([facility])[address] [place] [address] HPon 07-08-2023 HP H&P reviewed. The pa tient was examined and there are changes to the H&P, specifically, the L radial pulse is absent as are the distal PT and DP pulses. Normal [facility] LIPID PANELon 07-08-2023 CHOL/HDL 2.6 mg/dL Normal [facility] Comment on above: Performed By: #### L [id number] ####[facility] ([facility])[address] [facility] [place] [address] Cholesterol [Mass/Vol] 105 mg/dL Low 120-200 [facility] Comment on above: Performed By: #### L [id number] ####[facility] ([facility])[address] [place] [address] Magnesium [Mass/Vol] 63 mg/dL Normal 40-149 [facility] Comment on above: Result Comment: TRIG LYCERIDE REFERENCE RANGE:20 YEARS AND OLDER CARDIOVASCULAR RISKLESS THAN 150 mg/dL LOW [id number] TO 199 mg/dL BORDERLINE [id number] mg/dL AND GREATER HIGH RISK Performed By: #### L [id number] ####[facility] ([facility])[address] [place] [address] Magnesium [Mass/Vol] 52 mg/dL Normal 0-160 [facility] Comment on above: Performed By: #### L [id number] ####[facility] ([facility])[address] [place] [address] Magnesium [Mass/Vol] 40 mg/dL Normal 23-92 [facility] Comment on above: Performed By: #### L [id number] ####[facility] ([facility])[address] [place] [address] NON HDL CHOL. (LDL+VLDL) 65 Normal [facility] Comment on above: Performed By: #### L [id number] ####[facility] ([facility])[address] [place] [address] TOTAL VLDL-C 13 mg/dL Normal 0-40 [facility] Comment on above: Performed By: #### L [id number] ####[facility] ([facility])[address] [place] [address] NURSNOTEon 07-08-2023 NURSNOTE Normal [facility] 30on 07-07-2023 30 Normal [facility] ANTI-XA (HEPARIN LEVEL)on HEPARIN UNFRACTIONATED (U/ML) IN PPP BY CHROMOGENIC METHOD 0.35 IU/mL Normal 0.3-0.7 [facility] Comment on above: Result Comment: [place] roxaban and Apixaban will interfere with the anti Xa assay used to monitor UFH and LMWH. Performed By: #### L [id number] ####[facility] ([facility])[address] [place] [address] HEPARIN UNFRACTIONATED (U/ML) IN PPP BY CHROMOGENIC METHOD 0.35 IU/mL Normal 0.3-0.7 [facility] Comment on above: Order Comment: Check anti-Xa level every 6 hours while on heparin infusion, or per protocol. Result Comment: [place] roxaban and Apixaban will interfere with the anti Xa assay used to monitor UFH and LMWH. Performed By: #### L [id number] ####[facility] ([facility])[address] [place] [address] BASIC METABOLIC PANELon - Anion gap [Moles/Vol] 12 mmol/L Normal 7-20 [facility] Comment on above: Performed By: #### L [id number] ####[facility] ([facility])[address] [place] [address] Calcium [Mass/Vol] 9.0 mg/dL Normal 8.6-10.3 [facility] Comment on above: Performed By: #### L [id number] ####[facility] ([facility])[address] [place] [address] Chloride [Moles/Vol] 106 mmol/L Normal 98-107 [facility] Comment on above: Performed By: #### L [id number] ####[facility] ([facility])[address] [place] [address] CO2 [Moles/Vol] 22 mmol/L Normal 21-31 [facility] Comment on above: Performed By: #### L [id number] ####[facility] ([facility])[address] [place] [address] Creatinine [Mass/Vol] 0.79 mg/dL Normal 0.70-1.30 [facility] Comment on above: Performed By: #### L [id number] ####[facility] ([facility])[address] [place] [address] GLOMERULAR FILTRATION RATE ML/MIN/1.73 SQ M.PREDICTED 96.2 mL/min/1.73m*2 Normal >60.0 [facility] Comment on above: Result Comment: The [facility]???s estimated glomerular filtration rate (eGFR) will no [...] of individuals. Performed By: #### L [id number] ####[facility] ([facility])[address] [place] [address] Glucose [Mass/Vol] 113 mg/dL High 70-100 [facility] Comment on above: Performed By: #### L [id number] ####[facility] ([facility])[address] [place] [address] Potassium [Moles/Vol] 3.6 mmol/L Normal 3.5-5.1 [facility] Comment on above: Performed By: #### L [id number] ####[facility] ([facility])[address] [place] [address] Sodium [Moles/Vol] 136 mmol/L Normal 136-145 [facility] Comment on above: Performed By: #### L [id number] ####[facility] ([facility])[address] [place] [address] Urea nitrogen [Mass/Vol] 16 mg/dL Normal 7-25 [facility] Comment on above: Performed By: #### L [id number] ####[facility] ([facility])[address] [place] [address] UREA NITROGEN/CREATININ E (MASS RATIO) IN SER/PLAS 20.3 Normal [facility] Comment on above: Performed By: #### L [id number] ####[facility] ([facility])[address] [facility] [place] [address] 30on 07-06-2023 30 The patient is Moder ately Stable - Low risk of patient condition declining or worsening The patient's goals for the shift include comfort The clinical goals for the shift include VSS Normal [facility] 30 Normal [facility] ANTI-XA (HEPARIN LEVEL)on HEPARIN UNFRACTIONATED (U/ML) IN PPP BY CHROMOGENIC METHOD 0.34 IU/mL Normal 0.3-0.7 [facility] Comment on above: Order Comment: Check anti-Xa level every 6 hours while on heparin infusion, or per protocol. Result Comment: [place] roxaban and Apixaban will interfere with the anti Xa assay used to monitor UFH and LMWH. Performed By: #### L [id number] ####[facility] ([facility])[address] [place] [address] HEPARIN UNFRACTIONATED (U/ML) IN PPP BY CHROMOGENIC METHOD 0.22 IU/mL Low 0.3-0.7 [facility] Comment on above: Order Comment: Check anti-Xa level every 6 hours while on heparin infusion, or per protocol. Result Comment: [place] roxaban and Apixaban will interfere with the anti Xa assay used to monitor UFH and LMWH. Performed By: #### L [id number] ####[facility] ([facility])[address] [place] [address] HEPARIN UNFRACTIONATED (U/ML) IN PPP BY CHROMOGENIC METHOD 0.16 IU/mL Invalid Interpretation Code 0.3-0.7 [facility] Comment on above: Order Comment: Check anti-Xa level every 6 hours while on heparin infusion, or per protocol. Result Comment: [place] roxaban and Apixaban will interfere with the anti Xa assay used to monitor UFH and LMWH. Performed By: #### L [id number] ####[facility] ([facility])[address] [facility] [place] [address] HEPARIN UNFRACTIONATED (U/ML) IN PPP BY CHROMOGENIC METHOD 0.17 IU/mL Low 0.3-0.7 [facility] Comment on above: Order Comment: Check anti-Xa level every 6 hours while on heparin infusion, or per protocol. Result Comment: [place] roxaban and Apixaban will interfere with the anti Xa assay used to monitor UFH and LMWH. Performed By: #### L [id number] ####[facility] ([facility])[address] [facility] [place] [address] CBCon 07-06-2023 Erythrocyte distribution width (RBC) [Ratio] 13.7 % Normal 11.5-15.0 [facility] Comment on above: Performed By: #### L [id number] ####[facility] ([facility])[address] [place] [address] ERYTHROCYTE MEAN CORPUSCULAR HEMOGLOBIN CONCENTRATION (G/DL) BY AUTOMATED 34.3 g/dL Normal 32.0-35.0 [facility] Comment on above: Performed By: #### L [id number] ####[facility] ([facility])[address] [place] [address] Hematocrit (Bld) [Volume fraction] 38.8 % Low 39.0-55.0 [facility] Comment on above: Performed By: #### L [id number] ####[facility] ([facility])[address] [place] [address] Hemoglobin (Bld) [Mass/Vol] 13.3 g/dL Normal 13.0-17.0 [facility] Comment on above: Performed By: #### L [id number] ####[facility] ([facility])[address] [place] [address] MCH (RBC) [Entitic mass] 29.6 pg Normal 27.0-33.0 [facility] Comment on above: Performed By: #### L [id number] ####[facility] ([facility])[address] [place] [address] MCV (RBC) [Entitic vol] 86.4 fL Normal 82.0-98.0 [facility] Comment on above: Performed By: #### L [id number] ####[facility] ([facility])[address] [place] [address] PLATELETS (10*3/UL) IN BLOOD AUTOMATED COUNT 242 10*3/uL Normal 150-400 [facility] Comment on above: Performed By: #### L [id number] ####[facility] ([facility])[address] [place] [address] RBC (Bld) [#/Vol] 4.49 10*6/uL Normal 4.20-5.70 [facility] Comment on above: Performed By: #### L [id number] ####[facility] ([facility])[address] [place] [address] WBC (Bld) [#/Vol] 6.59 10*3/uL Normal 4.00-10.60 [facility] Comment on above: Performed By: #### L [id number] ####[facility] ([facility])[address] [place] [address] CONSULTon 07-06-2023 CONSULT Normal [facility] HPon 07-06-2023 HP Normal [facility] TROPONIN Ion 07-06-2023 Troponin I.cardiac [Mass/Vol] 0.03 ng/mL Normal 0.00-0.04 [facility] Comment on above: Performed By: #### L [id number] ####[facility] ([facility])[address] [place] [address] Troponin I.cardiac [Mass/Vol] 0.05 ng/mL High 0.00-0.04 [facility] Comment on above: Performed By: #### L [id number] ####[facility] ([facility])[address] [place] [address] Troponin I.cardiac [Mass/Vol] 0.06 ng/mL High 0.00-0.04 [facility] Comment on above: Performed By: #### L [id number] ####[facility] ([facility])[address] [place] [address] Troponin I.cardiac [Mass/Vol] 0.12 ng/mL Critically high 0.00-0.04 [facility] Comment on above: Result Comment: M-KS EVIOUS CRITICAL RESULTPrevious result verified on 07/05/20232224 on specimen/case [id number] called with component Troponin I for procedure Troponin I with value 0.23 ng/mL. Performed By: #### L [id number] ####[facility] ([facility])[address] [place] [address] 30on 07-05-2023 30 Normal [facility] APTTon 07-05-2023 ACTIVATED PARTIAL THROMBOPLASTIN TIME IN PPP BY COAGULATION ASSAY 36.3 Seconds High 25.0-35.0 [facility] Comment on above: Order Comment: Basel ine aPTT before initiating heparin infusion. Result Comment: Clin ical significance of the APTT is questionable in the presence of heparin. Performed By: #### L [id number] ####[facility] ([facility])[address] [place] [address] B-TYPE NATRIURETIC PEPTIDEon 07-05-2023 Natriuretic peptide B (Bld) [Mass/Vol] 346 pg/mL High 0-100 [facility] Comment on above: Performed By: #### L [id number] ####[facility] ([facility])[address] [place] [address] CBC WITH AUTO DIFFERENTIALon 07-05-2023 Basophils (Bld) [#/Vol] 0.03 10*3/uL Normal 0.00-0.20 [facility] Comment on above: Performed By: #### L [id number] ####[facility] ([facility])[address] [place] [address] Basophils/100 WBC (Bld) 0.5 % Normal 0.0-1.0 [facility] Comment on above: Performed By: #### L [id number] ####[facility] ([facility])[address] [place] [address] Eosinophils (Bld) [#/Vol] 0.15 10*3/uL Normal 0.00-0.50 [facility] Comment on above: Performed By: #### L [id number] ####[facility] ([facility])[address] [place] [address] Eosinophils/100 WBC (Bld) 2.3 % Normal 0.0-6.0 [facility] Comment on above: Performed By: #### L [id number] ####[facility] ([facility])[address] [place] [address] Erythrocyte distribution width (RBC) [Ratio] 13.6 % Normal 11.5-15.0 [facility] Comment on above: Performed By: #### L [id number] ####[facility] ([facility])[address] [place] [address] ERYTHROCYTE MEAN CORPUSCULAR HEMOGLOBIN CONCENTRATION (G/DL) BY AUTOMATED 34.1 g/dL Normal 32.0-35.0 [facility] Comment on above: Performed By: #### L [id number] ####[facility] ([facility])[address] [place] [address] Hematocrit (Bld) [Volume fraction] 41.7 % Normal 39.0-55.0 [facility] Comment on above: Performed By: #### L [id number] ####[facility] ([facility])[address] [place] [address] Hemoglobin (Bld) [Mass/Vol] 14.2 g/dL Normal 13.0-17.0 [facility] Comment on above: Performed By: #### L [id number] ####[facility] ([facility])[address] [place] [address] Immature granulocytes (Bld) [#/Vol] 0.01 10*3/uL Normal 0.00-0.20 [facility] Comment on above: Performed By: #### L [id number] ####[facility] ([facility])[address] [place] [address] Immature granulocytes/100 WBC (Bld) 0.2 % Normal 0.0-1.0 [facility] Comment on above: Performed By: #### L [id number] ####[facility] ([facility])[address] [place] [address] Lymphocytes (Bld) [#/Vol] 2.12 10*3/uL Normal 1.20-4.00 [facility] Comment on above: Performed By: #### L [id number] ####[facility] ([facility])[address] [place] [address] Lymphocytes/100 WBC (Bld) 32.7 % Normal 20.0-45.0 [facility] Comment on above: Performed By: #### L [id number] ####[facility] ([facility])[address] [place] [address] MCH (RBC) [Entitic mass] 29.3 pg Normal 27.0-33.0 [facility] Comment on above: Performed By: #### L [id number] ####[facility] ([facility])[address] [place] [address] MCV (RBC) [Entitic vol] 86.2 fL Normal 82.0-98.0 [facility] Comment on above: Performed By: #### L [id number] ####[facility] ([facility])[address] [place] [address] Monocytes (Bld) [#/Vol] 0.64 10*3/uL Normal 0.10-1.00 [facility] Comment on above: Performed By: #### L [id number] ####[facility] ([facility])[address] [place] [address] Monocytes/100 WBC (Bld) 9.9 % Normal 5.0-12.0 [facility] Comment on above: Performed By: #### L [id number] ####[facility] ([facility])[address] [place] [address] Neutrophils (Bld) [#/Vol] 3.54 10*3/uL Normal 1.60-7.60 [facility] Comment on above: Performed By: #### L [id number] ####[facility] ([facility])[address] [place] [address] Neutrophils/100 WBC (Bld) 54.4 % Normal 40.0-72.0 [facility] Comment on above: Performed By: #### L [id number] ####[facility] ([facility])[address] [place] [address] NRBC (PER 100 WBCS) BY AUTOMATED COUNT 0.0 % Normal 0 [facility] Comment on above: Performed By: #### L [id number] ####[facility] ([facility])[address] [place] [address] PLATELETS (10*3/UL) IN BLOOD AUTOMATED COUNT 277 10*3/uL Normal 150-400 [facility] Comment on above: Performed By: #### L [id number] ####[facility] ([facility])[address] [place] [address] RBC (Bld) [#/Vol] 4.84 10*6/uL Normal 4.20-5.70 [facility] Comment on above: Performed By: #### L [id number] ####[facility] ([facility])[address], [place] [address] WBC (Bld) [#/Vol] 6.49 10*3/uL Normal 4.00-10.60 [facility] Comment on above: Performed By: #### L [id number] ####[facility] ([facility])[address] [place] [address] COMPREHENSIVE METABOLIC PANE Roddy 07-05-2023 Albumin [Mass/Vol] 3.9 g/dL Normal 3.5-5.7 [facility] Comment on above: Performed By: #### L [id number] ####[facility] ([facility])[address] [place] [address] ALP [Catalytic activity/Vol] 127 U/L High 34-104 [facility] Comment on above: Performed By: #### L [id number] ####[facility] ([facility])[address] [place] [address] ALT [Catalytic activity/Vol] 10 U/L Normal 7-52 [facility] Comment on above: Performed By: #### L [id number] ####[facility] ([facility])[address] [place] [address] Anion gap [Moles/Vol] 14 mmol/L Normal 7-20 [facility] Comment on above: Performed By: #### L [id number] ####[facility] ([facility])[address] [place] [address] AST [Catalytic activity/Vol] 15 U/L Normal 13-39 [facility] Comment on above: Performed By: #### L [id number] ####[facility] ([facility])[address] [place] [address] Bilirubin [Mass/Vol] 0.4 mg/dL Normal 0.3-1.0 [facility] Comment on above: Performed By: #### L [id number] ####[facility] ([facility])[address] [place] [address] Calcium [Mass/Vol] 9.4 mg/dL Normal 8.6-10.3 [facility] Comment on above: Performed By: #### L [id number] ####[facility] ([facility])[address] [place] [address] Chloride [Moles/Vol] 106 mmol/L Normal 98-107 [facility] Comment on above: Performed By: #### L [id number] ####[facility] ([facility])[address] [place] [address] CO2 [Moles/Vol] 23 mmol/L Normal 21-31 [facility] Comment on above: Performed By: #### L [id number] ####[facility] ([facility])[address] [place] [address] Creatinine [Mass/Vol] 0.78 mg/dL Normal 0.70-1.30 [facility] Comment on above: Performed By: #### L [id number] ####[facility] ([facility])[address] [place] [address] GLOMERULAR FILTRATION RATE ML/MIN/1.73 SQ M.PREDICTED 96.5 mL/min/1.73m*2 Normal >60.0 [facility] Comment on above: Result Comment: The [facility]???s estimated glomerular filtration rate (eGFR) will no [...] of individuals. Performed By: #### L [id number] ####[facility] ([facility])[address] [place] [address] Glucose [Mass/Vol] 114 mg/dL High 70-100 [facility] Comment on above: Performed By: #### L [id number] ####[facility] ([facility])[address] [place] [address] Potassium [Moles/Vol] 3.5 mmol/L Normal 3.5-5.1 [facility] Comment on above: Performed By: #### L [id number] ####[facility] ([facility])[address] [place] [address] Protein [Mass/Vol] 7.5 g/dL Normal 6.0-8.3 [facility] Comment on above: Performed By: #### L [id number] ####[facility] ([facility])[address] [place] [address] Sodium [Moles/Vol] 139 mmol/L Normal 136-145 [facility] Comment on above: Performed By: #### L [id number] ####[facility] ([facility])[address] [place] [address] Urea nitrogen [Mass/Vol] 13 mg/dL Normal 7-25 [facility] Comment on above: Performed By: #### L [id number] ####[facility] ([facility])[address] [place] [address] UREA NITROGEN/CREATININ E (MASS RATIO) IN SER/PLAS 16.7 Normal [facility] Comment on above: Performed By: #### L [id number] ####[facility] ([facility])[address] [place] [address] HPon 07-05-2023 HP Normal [facility] MAGNESIUMon 07-05-2023 Magnesium [Mass/Vol] 1.8 mg/dL Low 1.9-2.7 [facility] Comment on above: Performed By: #### L [id number] ####[facility] ([facility])[address] [place] [address] NURSNOTEon 07-05-2023 NURSNOTE Lead RN called admit amalia MONTES DE OCA, no new orders as of this time. Station Usher verified diet order, pt placing order for dinner. Will continue to monitor Normal [facility] PHOSPHORUSon 07-05-2023 Magnesium [Mass/Vol] 3.5 mg/dL Normal 2.5-5.0 [facility] Comment on above: Performed By: #### L [id number] ####[facility] ([facility])[address] [place] [address] POCT GLUCOSE METER UNSOLICIT ED RESULTSon 07-05-2023 Glucose [Mass/Vol] 163 mg/dL High 70-105 [facility] Comment on above: Order Comment: Waive d Testing in the ED is performed under the ED CLIA certificate #[id number]. Result Comment: [email or web address] [email or web address] Performed By: #### L [id number] ####[facility] ([facility])[address] [place] [address] PROTIME-INRon 07-05-2023 INR IN PPP BY COAGULATION ASSAY 1.07 Normal 0.90-1.10 [facility] Comment on above: Result Comment: ACCC P [...] CHEST 1995;[id number]. Performed By: #### L [id number] ####[facility] ([facility])[address] [place] [address] PROTHROMBIN TIME (PT) IN PPP BY COAGULATION ASSAY 13.9 Seconds Normal 12.3-14.8 [facility] Comment on above: Performed By: #### L [id number] ####[facility] ([facility])[address] [place] [address] TROPONIN Ion 07-05-2023 Troponin I.cardiac [Mass/Vol] 0.23 ng/mL Critically high 0.00-0.04 [facility] Comment on above: Result Comment: M-CR ITICAL RESULT(S) REVIEWED, CALLED TO AND READ BACK BY MARY SIMMONS RN AT 2224M-TROPONIN INITIAL CRITICAL HIGH; RESPUN AND RETESTED Performed By: #### L [id number] ####[facility] ([facility])[address] [place] [address] Orders Onlyon 07-02-2023 Orders Only [id number] Gui Ortiz Sr. 1955 M Date Provider Department Center 07/02/2023 ALLEN HUA ONC DCC Family History Family history unknown: Yes Normal [facility] 29on 05-16-2023 29 Addended by: PASCUAL VELARDE on: 05/16/2023 03:51 PM Modules accepted: Orders Normal [facility] 29 Addended by: PASCUAL VELARDE on: 05/16/2023 03:50 PM Modules accepted: Orders Normal [facility] Follow-Upon 05-16-2023 Follow-Up Normal [facility] 36on 05-03-2023 36 Normal [facility] Telephoneon 05-03-2023 Telephone [id number] Gui Ortiz 1955 M Date Provider Department Center 05/03/2023 SAEID MARISCAL HVCVASEDARIN PR [facility] Family History Family history unknown: Yes Normal [facility] 36on 05-02-2023 36 Normal [facility] 30on 05-01-2023 30 Normal [facility] 30 Normal [facility] BASIC METABOLIC PANELon 04-17 Anion gap [Moles/Vol] 11 mmol/L Normal 7-20 [facility] Comment on above: Performed By: #### L [id number] ####[facility] ([facility])[address] [place] [address] Calcium [Mass/Vol] 8.4 mg/dL Low 8.6-10.3 [facility] Comment on above: Performed By: #### L [id number] ####[facility] ([facility])[address] [place] [address] Chloride [Moles/Vol] 109 mmol/L High 98-107 [facility] Comment on above: Performed By: #### L [id number] ####[facility] ([facility])[address] [place] [address] CO2 [Moles/Vol] 22 mmol/L Normal 21-31 [facility] Comment on above: Performed By: #### L [id number] ####[facility] ([facility])[address] [place] [address] Creatinine [Mass/Vol] 0.62 mg/dL Low 0.70-1.30 [facility] Comment on above: Performed By: #### L [id number] ####[facility] ([facility])[address] [place] [address] GLOMERULAR FILTRATION RATE ML/MIN/1.73 SQ M.PREDICTED 103.5 mL/min/1.73m*2 Normal >60.0 [facility] Comment on above: Result Comment: The [facility]???s estimated glomerular filtration rate (eGFR) will no [...] of individuals. Performed By: #### L [id number] ####[facility] ([facility])[address] [place] [address] Glucose [Mass/Vol] 98 mg/dL Normal 70-100 [facility] Comment on above: Performed By: #### L [id number] ####[facility] ([facility])[address] [place] [address] Potassium [Moles/Vol] 3.7 mmol/L Normal 3.5-5.1 [facility] Comment on above: Performed By: #### L [id number] ####[facility] ([facility])[address] [place] [address] Sodium [Moles/Vol] 138 mmol/L Normal 136-145 [facility] Comment on above: Performed By: #### L [id number] ####[facility] ([facility])[address] [place] [address] Urea nitrogen [Mass/Vol] 12 mg/dL Normal 7-25 [facility] Comment on above: Performed By: #### L [id number] ####[facility] ([facility])[address] [place] [address] UREA NITROGEN/CREATININ E (MASS RATIO) IN SER/PLAS 19.4 Normal [facility] Comment on above: Performed By: #### L [id number] ####[facility] ([facility])[address] [place] [address] CBCon 05-01-2023 Erythrocyte distribution width (RBC) [Ratio] 14.5 % Normal 11.5-15.0 [facility] Comment on above: Performed By: #### L [id number] ####[facility] ([facility])[address] [place] [address] ERYTHROCYTE MEAN CORPUSCULAR HEMOGLOBIN CONCENTRATION (G/DL) BY AUTOMATED 33.2 g/dL Normal 32.0-35.0 [facility] Comment on above: Performed By: #### L [id number] ####[facility] ([facility])[address] [address] Hematocrit (Bld) [Volume fraction] 27.4 % Low 39.0-55.0 [facility] Comment on above: Performed By: #### L [id number] ####[facility] ([facility])[address] [place] [address] Hemoglobin (Bld) [Mass/Vol] 9.1 g/dL Low 13.0-17.0 [facility] Comment on above: Performed By: #### L [id number] ####[facility] ([facility])[address] [place] [address] MCH (RBC) [Entitic mass] 30.7 pg Normal 27.0-33.0 [facility] Comment on above: Performed By: #### L [id number] ####[facility] ([facility])[address] [place] [address] MCV (RBC) [Entitic vol] 92.6 fL Normal 82.0-98.0 [facility] Comment on above: Performed By: #### L [id number] ####[facility] ([facility])[address] [place] [address] PLATELETS (10*3/UL) IN BLOOD AUTOMATED COUNT 276 10*3/uL Normal 150-400 [facility] Comment on above: Performed By: #### L [id number] ####[facility] ([facility])[address] [place] [address] RBC (Bld) [#/Vol] 2.96 10*6/uL Low 4.20-5.70 [facility] Comment on above: Performed By: #### L [id number] ####[facility] ([facility])[address] [place] [address] WBC (Bld) [#/Vol] 6.87 10*3/uL Normal 4.00-10.60 [facility] Comment on above: Performed By: #### L [id number] ####[facility] ([facility])[address] [place] [address] DSon 05-01-2023 DS Normal [facility] MAGNESIUMon 05-01-2023 Magnesium [Mass/Vol] 1.7 mg/dL Low 1.9-2.7 [facility] Comment on above: Performed By: #### L [id number] ####[facility] ([facility])[address] [place] [address] NURSNOTEon 05-01-2023 NURSNOTE Normal [facility] NURSNOTE Normal [facility] PHOSPHORUSon 05-01-2023 Magnesium [Mass/Vol] 3.8 mg/dL Normal 2.5-5.0 [facility] Comment on above: Performed By: #### L [id number] ####[facility] ([facility])[address] [place] [address] POCT GLUCOSE METER UNSOLICIT ED RESULTSon 05-01-2023 Glucose [Mass/Vol] 116 mg/dL High 70-105 [facility] Comment on above: Order Comment: Waive d Testing in the ED is performed under the ED CLIA certificate #[id number]. Result Comment: [email or web address] Performed By: #### L [id number] ####[facility] ([facility])[address] [place] [address] Glucose [Mass/Vol] 115 mg/dL High 70-105 [facility] Comment on above: Order Comment: Waive d Testing in the ED is performed under the ED CLIA certificate #[id number]. Result Comment: [email or web address] Performed By: #### L [id number] ####[facility] ([facility])[address] [place] [address] 30on 04-30-2023 30 Normal [facility] 30 Normal [facility] 30 Normal [facility] BASIC METABOLIC PANELon 04-17 Anion gap [Moles/Vol] 12 mmol/L Normal 7-20 [facility] Comment on above: Performed By: #### L [id number] ####[facility] ([facility])[address] [place] [address] Calcium [Mass/Vol] 8.3 mg/dL Low 8.6-10.3 [facility] Comment on above: Performed By: #### L [id number] ####[facility] ([facility])[address] [place] [address] Chloride [Moles/Vol] 109 mmol/L High 98-107 [facility] Comment on above: Performed By: #### L [id number] ####[facility] ([facility])[address] [place] [address] CO2 [Moles/Vol] 21 mmol/L Normal 21-31 [facility] Comment on above: Performed By: #### L [id number] ####[facility] ([facility])[address] [place] [address] Creatinine [Mass/Vol] 0.70 mg/dL Normal 0.70-1.30 [facility] Comment on above: Performed By: #### L [id number] ####[facility] ([facility])[address] [place] [address] GLOMERULAR FILTRATION RATE ML/MIN/1.73 SQ M.PREDICTED 99.7 mL/min/1.73m*2 Normal >60.0 [facility] Comment on above: Result Comment: The [facility]???s estimated glomerular filtration rate (eGFR) will no [...] of individuals. Performed By: #### L [id number] ####[facility] ([facility])[address] [place] [address] Glucose [Mass/Vol] 104 mg/dL High 70-100 [facility] Comment on above: Performed By: #### L [id number] ####[facility] ([facility])[address] [place] [address] Potassium [Moles/Vol] 3.7 mmol/L Normal 3.5-5.1 [facility] Comment on above: Performed By: #### L [id number] ####[facility] ([facility])[address] [place] [address] Sodium [Moles/Vol] 138 mmol/L Normal 136-145 [facility] Comment on above: Performed By: #### L [id number] ####[facility] ([facility])[address] [place] [address] Urea nitrogen [Mass/Vol] 15 mg/dL Normal 7-25 [facility] Comment on above: Performed By: #### L [id number] ####[facility] ([facility])[address] [place] [address] UREA NITROGEN/CREATININ E (MASS RATIO) IN SER/PLAS 21.4 Normal [facility] Comment on above: Performed By: #### L [id number] ####[facility] ([facility])[address] [place] [address] CBCon 04-30-2023 Erythrocyte distribution width (RBC) [Ratio] 13.8 % Normal 11.5-15.0 [facility] Comment on above: Performed By: #### L [id number] ####[facility] ([facility])[address] [place] [address] ERYTHROCYTE MEAN CORPUSCULAR HEMOGLOBIN CONCENTRATION (G/DL) BY AUTOMATED 32.6 g/dL Normal 32.0-35.0 [facility] Comment on above: Performed By: #### L [id number] ####[facility] ([facility])[address] [place] [address] Hematocrit (Bld) [Volume fraction] 27.3 % Low 39.0-55.0 [facility] Comment on above: Performed By: #### L [id number] ####[facility] ([facility])[address] [place] [address] Hemoglobin (Bld) [Mass/Vol] 8.9 g/dL Low 13.0-17.0 [facility] Comment on above: Performed By: #### L [id number] ####[facility] ([facility])[address] [place] [address] MCH (RBC) [Entitic mass] 30.4 pg Normal 27.0-33.0 [facility] Comment on above: Performed By: #### L [id number] ####[facility] ([facility])[address] [place] [address] MCV (RBC) [Entitic vol] 93.2 fL Normal 82.0-98.0 [facility] Comment on above: Performed By: #### L [id number] ####[facility] ([facility])[address] [place] [address] PLATELETS (10*3/UL) IN BLOOD AUTOMATED COUNT 219 10*3/uL Normal 150-400 [facility] Comment on above: Performed By: #### L [id number] ####[facility] ([facility])[address] [place] [address] RBC (Bld) [#/Vol] 2.93 10*6/uL Low 4.20-5.70 [facility] Comment on above: Performed By: #### L [id number] ####[facility] ([facility])[address] [place] [address] WBC (Bld) [#/Vol] 6.80 10*3/uL Normal 4.00-10.60 [facility] Comment on above: Performed By: #### L [id number] ####[facility] ([facility])[address] [place] [address] MAGNESIUMon 04-30-2023 Magnesium [Mass/Vol] 1.7 mg/dL Low 1.9-2.7 [facility] Comment on above: Performed By: #### L [id number] ####[facility] ([facility])[address] [place] [address] PHOSPHORUSon 04-30-2023 Magnesium [Mass/Vol] 4.0 mg/dL Normal 2.5-5.0 [facility] Comment on above: Performed By: #### L [id number] ####[facility] ([facility])[address] [place] [address] POCT GLUCOSE METER UNSOLICIT ED RESULTSon 04-30-2023 Glucose [Mass/Vol] 123 mg/dL High 70-105 [facility] Comment on above: Order Comment: Waive d Testing in the ED is performed under the ED CLIA certificate #[id number]. Result Comment: [email or web address] Performed By: #### L [id number] ####[facility] ([facility])[address] [place] [address] Glucose [Mass/Vol] 138 mg/dL High 70-105 [facility] Comment on above: Order Comment: Waive d Testing in the ED is performed under the ED CLIA certificate #[id number]. Result Comment: [email or web address] Performed By: #### L [id number] ####[facility] ([facility])[address] [place] [address] 30on 04-29-2023 30 Normal [facility] 30 Normal [facility] 30 Normal [facility] BASIC METABOLIC PANELon 11- Anion gap [Moles/Vol] 11 mmol/L Normal 7-20 [facility] Comment on above: Performed By: #### L [id number] ####[facility] ([facility])[address] [place] [address] Calcium [Mass/Vol] 8.4 mg/dL Low 8.6-10.3 [facility] Comment on above: Performed By: #### L [id number] ####[facility] ([facility])[address] [place] [address] Chloride [Moles/Vol] 109 mmol/L High 98-107 [facility] Comment on above: Performed By: #### L [id number] ####[facility] ([facility])[address] [place] [address] CO2 [Moles/Vol] 20 mmol/L Low 21-31 [facility] Comment on above: Performed By: #### L [id number] ####[facility] ([facility])[address] [place] [address] Creatinine [Mass/Vol] 0.68 mg/dL Low 0.70-1.30 [facility] Comment on above: Performed By: #### L [id number] ####[facility] ([facility])[address] [place] [address] GLOMERULAR FILTRATION RATE ML/MIN/1.73 SQ M.PREDICTED 100.6 mL/min/1.73m*2 Normal >60.0 [facility] Comment on above: Result Comment: The [facility]???s estimated glomerular filtration rate (eGFR) will no [...] of individuals. Performed By: #### L [id number] ####[facility] ([facility])[address] [place] [address] Glucose [Mass/Vol] 100 mg/dL Normal 70-100 [facility] Comment on above: Performed By: #### L [id number] ####[facility] ([facility])[address] [place] [address] Potassium [Moles/Vol] 3.8 mmol/L Normal 3.5-5.1 [facility] Comment on above: Performed By: #### L [id number] ####[facility] ([facility])[address] [place] [address] Sodium [Moles/Vol] 136 mmol/L Normal 136-145 [facility] Comment on above: Performed By: #### L [id number] ####[facility] ([facility])[address] [place] [address] Urea nitrogen [Mass/Vol] 18 mg/dL Normal 7-25 [facility] Comment on above: Performed By: #### L [id number] ####[facility] ([facility] [facility])[address] [place] [address] UREA NITROGEN/CREATININ E (MASS RATIO) IN SER/PLAS 26.5 Normal [facility] Comment on above: Performed By: #### L [id number] ####[facility] ([facility])[address] [place] [address] CBCon 04-29-2023 Erythrocyte distribution width (RBC) [Ratio] 13.6 % Normal 11.5-15.0 [facility] Comment on above: Performed By: #### L [id number] ####[facility] ([facility])[address] [place] [address] ERYTHROCYTE MEAN CORPUSCULAR HEMOGLOBIN CONCENTRATION (G/DL) BY AUTOMATED 33.7 g/dL Normal 32.0-35.0 [facility] Comment on above: Performed By: #### L [id number] ####[facility] ([facility])[address] [place] [address] Hematocrit (Bld) [Volume fraction] 27.0 % Low 39.0-55.0 [facility] Comment on above: Performed By: #### L [id number] ####[facility] ([facility])[address] [place] [address] Hemoglobin (Bld) [Mass/Vol] 9.1 g/dL Low 13.0-17.0 [facility] Comment on above: Performed By: #### L [id number] ####[facility] ([facility])[address] [address] MCH (RBC) [Entitic mass] 30.4 pg Normal 27.0-33.0 [facility] Comment on above: Performed By: #### L [id number] ####[facility] ([facility])[address] [place] [address] MCV (RBC) [Entitic vol] 90.3 fL Normal 82.0-98.0 [facility] Comment on above: Performed By: #### L [id number] ####[facility] ([facility])[address] [place] [address] PLATELETS (10*3/UL) IN BLOOD AUTOMATED COUNT 188 10*3/uL Normal 150-400 [facility] Comment on above: Performed By: #### L [id number] ####[facility] ([facility])[address] [place] [address] RBC (Bld) [#/Vol] 2.99 10*6/uL Low 4.20-5.70 [facility] Comment on above: Performed By: #### L [id number] ####[facility] ([facility])[place] [address] WBC (Bld) [#/Vol] 7.24 10*3/uL Normal 4.00-10.60 [facility] Comment on above: Performed By: #### L [id number] ####[facility] ([facility])[address] [place] [address] CONSULTon 04-29-2023 CONSULT Normal [facility] MAGNESIUMon 04-29-2023 Magnesium [Mass/Vol] 1.7 mg/dL Low 1.9-2.7 [facility] Comment on above: Performed By: #### L [id number] ####[facility] ([facility])[address] [place] [address] PHOSPHORUSon 04-29-2023 Magnesium [Mass/Vol] 3.9 mg/dL Normal 2.5-5.0 [facility] Comment on above: Performed By: #### L [id number] ####[facility] ([facility])[address] [place] [address] POCT GLUCOSE METER UNSOLICIT ED RESULTSon 04-29-2023 Glucose [Mass/Vol] 111 mg/dL High 70-105 [facility] Comment on above: Order Comment: Waive d Testing in the ED is performed under the ED CLIA certificate #[id number]. Result Comment: afin [email or web address] Performed By: #### L [id number] ####[facility] ([facility])[address] [place] [address] Glucose [Mass/Vol] 133 mg/dL High 70-105 [facility] Comment on above: Order Comment: Waive d Testing in the ED is performed under the ED CLIA certificate #[id number]. Result Comment: mitra shea Performed By: #### L [id number] ####[facility] ([facility])[address] [place] [address] Glucose [Mass/Vol] 128 mg/dL High 70-105 [facility] Comment on above: Order Comment: Waive d Testing in the ED is performed under the ED CLIA certificate #[id number]. Result Comment: mitra shea Performed By: #### L [id number] ####[facility] ([facility])[address] [place] [address] 30on 04-28-2023 30 Normal [facility] BASIC METABOLIC PANELon 04-17 Anion gap [Moles/Vol] 10 mmol/L Normal 7-20 [facility] Comment on above: Performed By: #### L [id number] ####[facility] ([facility])[address] [place] [address] Calcium [Mass/Vol] 8.1 mg/dL Low 8.6-10.3 [facility] Comment on above: Performed By: #### L [id number] ####[facility] ([facility])[address] [place] [address] Chloride [Moles/Vol] 109 mmol/L High 98-107 [facility] Comment on above: Performed By: #### L [id number] ####[facility] ([facility])[address] [place] [address] CO2 [Moles/Vol] 22 mmol/L Normal 21-31 [facility] Comment on above: Performed By: #### L [id number] ####[facility] ([facility])[address] [place] [address] Creatinine [Mass/Vol] 0.62 mg/dL Low 0.70-1.30 [facility] Comment on above: Performed By: #### L [id number] ####[facility] ([facility])[address] [place] [address] GLOMERULAR FILTRATION RATE ML/MIN/1.73 SQ M.PREDICTED 103.5 mL/min/1.73m*2 Normal >60.0 [facility] Comment on above: Result Comment: The [facility]???s estimated glomerular filtration rate (eGFR) will no [...] of individuals. Performed By: #### L [id number] ####[facility] ([facility])[address] [place] [address] Glucose [Mass/Vol] 102 mg/dL High 70-100 [facility] Comment on above: Performed By: #### L [id number] ####[facility] ([facility])[address] [place] [address] Potassium [Moles/Vol] 3.4 mmol/L Low 3.5-5.1 [facility] Comment on above: Performed By: #### L [id number] ####[facility] ([facility])[address] [place] [address] Sodium [Moles/Vol] 138 mmol/L Normal 136-145 [facility] Comment on above: Performed By: #### L [id number] ####[facility] ([facility])[address] [place] [address] Urea nitrogen [Mass/Vol] 22 mg/dL Normal 7-25 [facility] Comment on above: Performed By: #### L [id number] ####[facility] ([facility])[address] [place] [address] UREA NITROGEN/CREATININ E (MASS RATIO) IN SER/PLAS 35.5 Normal [facility] Comment on above: Performed By: #### L [id number] ####[facility] ([facility])[address] [place] [address] CBC WITH AUTO DIFFERENTIALon 04-28-2023 Basophils (Bld) [#/Vol] 0.02 10*3/uL Normal 0.00-0.20 [facility] Comment on above: Performed By: #### L [id number] ####[facility] ([facility])[address] [place] [address] Basophils/100 WBC (Bld) 0.2 % Normal 0.0-1.0 [facility] Comment on above: Performed By: #### L [id number] ####[facility] ([facility])[address] [place] [address] Eosinophils (Bld) [#/Vol] 0.09 10*3/uL Normal 0.00-0.50 [facility] Comment on above: Performed By: #### L [id number] ####[facility] ([facility])[address] [place] [address] Eosinophils/100 WBC (Bld) 1.1 % Normal 0.0-6.0 [facility] Comment on above: Performed By: #### L [id number] ####[facility] ([facility])[address] [place] [address] Erythrocyte distribution width (RBC) [Ratio] 13.6 % Normal 11.5-15.0 [facility] Comment on above: Performed By: #### L [id number] ####[facility] ([facility])[address] [place] [address] ERYTHROCYTE MEAN CORPUSCULAR HEMOGLOBIN CONCENTRATION (G/DL) BY AUTOMATED 33.1 g/dL Normal 32.0-35.0 [facility] Comment on above: Performed By: #### L [id number] ####[facility] ([facility])[address] [place] [address] Hematocrit (Bld) [Volume fraction] 32.3 % Low 39.0-55.0 [facility] Comment on above: Performed By: #### L [id number] ####[facility] ([facility])[address] [place] [address] Hemoglobin (Bld) [Mass/Vol] 10.7 g/dL Low 13.0-17.0 [facility] Comment on above: Performed By: #### L [id number] ####[facility] ([facility])[address] [place] [address] Immature granulocytes (Bld) [#/Vol] 0.06 10*3/uL Normal 0.00-0.20 [facility] Comment on above: Performed By: #### L [id number] ####[facility] ([facility])[address] [place] [address] Immature granulocytes/100 WBC (Bld) 0.7 % Normal 0.0-1.0 [facility] Comment on above: Performed By: #### L [id number] ####[facility] ([facility])[address] [place] [address] Lymphocytes (Bld) [#/Vol] 1.82 10*3/uL Normal 1.20-4.00 [facility] Comment on above: Performed By: #### L [id number] ####[facility] ([facility])[address] [place] [address] Lymphocytes/100 WBC (Bld) 22.2 % Normal 20.0-45.0 [facility] Comment on above: Performed By: #### L [id number] ####[facility] ([facility])[address] [address] MCH (RBC) [Entitic mass] 30.3 pg Normal 27.0-33.0 [facility] Comment on above: Performed By: #### L [id number] ####[facility] ([facility])[address] [place] [address] MCV (RBC) [Entitic vol] 91.5 fL Normal 82.0-98.0 [facility] Comment on above: Performed By: #### L [id number] ####[facility] ([facility])[address] [place] [address] Monocytes (Bld) [#/Vol] 0.67 10*3/uL Normal 0.10-1.00 [facility] Comment on above: Performed By: #### L [id number] ####[facility] ([facility])[address] [place] [address] Monocytes/100 WBC (Bld) 8.2 % Normal 5.0-12.0 [facility] Comment on above: Performed By: #### L [id number] ####[facility] ([facility])[address] [place] [address] Neutrophils (Bld) [#/Vol] 5.55 10*3/uL Normal 1.60-7.60 [facility] Comment on above: Performed By: #### L [id number] ####[facility] ([facility])[address] [place] [address] Neutrophils/100 WBC (Bld) 67.6 % Normal 40.0-72.0 [facility] Comment on above: Performed By: #### L [id number] ####[facility] ([facility])[address] [place] [address] NRBC (PER 100 WBCS) BY AUTOMATED COUNT 0.0 % Normal 0 [facility] Comment on above: Performed By: #### L [id number] ####[facility] ([facility])[address] [address] PLATELETS (10*3/UL) IN BLOOD AUTOMATED COUNT 160 10*3/uL Normal 150-400 [facility] Comment on above: Performed By: #### L [id number] ####[facility] ([facility])[address] [place] [address] RBC (Bld) [#/Vol] 3.53 10*6/uL Low 4.20-5.70 [facility] Comment on above: Performed By: #### L [id number] ####[facility] ([facility])[address] [place] [address] WBC (Bld) [#/Vol] 8.21 10*3/uL Normal 4.00-10.60 [facility] Comment on above: Performed By: #### L [id number] ####[facility] ([facility])[address] [place] [address] MAGNESIUMon 04-28-2023 Magnesium [Mass/Vol] 1.7 mg/dL Low 1.9-2.7 [facility] Comment on above: Performed By: #### L [id number] ####[facility] ([facility])[address] [place] [address] PHOSPHORUSon 04-28-2023 Magnesium [Mass/Vol] 3.9 mg/dL Normal 2.5-5.0 [facility] Comment on above: Performed By: #### L [id number] ####[facility] ([facility])[address] [place] [address] POCT GLUCOSE METER UNSOLICIT ED RESULTSon 04-28-2023 Glucose [Mass/Vol] 111 mg/dL High 70-105 [facility] Comment on above: Order Comment: Waive d Testing in the ED is performed under the ED CLIA certificate #[id number]. Result Comment: [email or web address] [email or web address] Performed By: #### L [id number] ####[facility] ([facility])[address] [place] [address] Glucose [Mass/Vol] 86 mg/dL Normal 70-105 [facility] Comment on above: Order Comment: Waive d Testing in the ED is performed under the ED CLIA certificate #[id number]. Result Comment: mitra shea Performed By: #### L [id number] ####[facility] ([facility])[address] [place] [address] Glucose [Mass/Vol] 159 mg/dL High 70-105 [facility] Comment on above: Order Comment: Waive d Testing in the ED is performed under the ED CLIA certificate #[id number]. Result Comment: [email or web address] Performed By: #### L [id number] ####[facility] ([facility])[address] [place] [address] Glucose [Mass/Vol] 109 mg/dL High 70-105 [facility] Comment on above: Order Comment: Waive d Testing in the ED is performed under the ED CLIA certificate #[id number]. Result Comment: [email or web address] [email or web address] Performed By: #### L [id number] ####[facility] ([facility])[address] [place] [address] BASIC METABOLIC PANELon 11-1 Anion gap [Moles/Vol] 11 mmol/L Normal 7-20 [facility] Comment on above: Performed By: #### L [id number] ####[facility] ([facility])[address] [place] [address] Calcium [Mass/Vol] 8.2 mg/dL Low 8.6-10.3 [facility] Comment on above: Performed By: #### L [id number] ####[facility] ([facility])[address] [place] [address] Chloride [Moles/Vol] 112 mmol/L High 98-107 [facility] Comment on above: Performed By: #### L [id number] ####[facility] ([facility])[address] [place] [address] CO2 [Moles/Vol] 23 mmol/L Normal 21-31 [facility] Comment on above: Performed By: #### L [id number] ####[facility] ([facility])[address] [place] [address] Creatinine [Mass/Vol] 0.64 mg/dL Low 0.70-1.30 [facility] Comment on above: Performed By: #### L [id number] ####[facility] ([facility])[address] [place] [address] GLOMERULAR FILTRATION RATE ML/MIN/1.73 SQ M.PREDICTED 102.5 mL/min/1.73m*2 Normal >60.0 [facility] Comment on above: Result Comment: The [facility]???s estimated glomerular filtration rate (eGFR) will no [...] of individuals. Performed By: #### L [id number] ####[facility] ([facility])[address] [place] [address] Glucose [Mass/Vol] 116 mg/dL High 70-100 [facility] Comment on above: Performed By: #### L [id number] ####[facility] ([facility])[address] [place] [address] Potassium [Moles/Vol] 3.9 mmol/L Normal 3.5-5.1 [facility] Comment on above: Performed By: #### L [id number] ####[facility] ([facility])[address] [place] [address] Sodium [Moles/Vol] 142 mmol/L Normal 136-145 [facility] Comment on above: Performed By: #### L [id number] ####[facility] ([facility])[address] [place] [address] Urea nitrogen [Mass/Vol] 22 mg/dL Normal 7-25 [facility] Comment on above: Performed By: #### L [id number] ####[facility] ([facility])[address] [place] [address] UREA NITROGEN/CREATININ E (MASS RATIO) IN SER/PLAS 34.4 Normal [facility] Comment on above: Performed By: #### L [id number] ####[facility] ([facility])[address] [place] [address] CBC WITH AUTO DIFFERENTIALon 04-27-2023 Basophils (Bld) [#/Vol] 0.02 10*3/uL Normal 0.00-0.20 [facility] Comment on above: Performed By: #### L [id number] ####[facility] ([facility])[address] [place] [address] Basophils/100 WBC (Bld) 0.2 % Normal 0.0-1.0 [facility] Comment on above: Performed By: #### L [id number] ####[facility] ([facility])[address] [place] [address] Eosinophils (Bld) [#/Vol] 0.05 10*3/uL Normal 0.00-0.50 [facility] Comment on above: Performed By: #### L [id number] ####[facility] ([facility])[address] [place] [address] Eosinophils/100 WBC (Bld) 0.5 % Normal 0.0-6.0 [facility] Comment on above: Performed By: #### L [id number] ####[facility] ([facility])[address] [place] [address] Erythrocyte distribution width (RBC) [Ratio] 13.6 % Normal 11.5-15.0 [facility] Comment on above: Performed By: #### L [id number] ####[facility] ([facility])[address] [place] [address] ERYTHROCYTE MEAN CORPUSCULAR HEMOGLOBIN CONCENTRATION (G/DL) BY AUTOMATED 33.7 g/dL Normal 32.0-35.0 [facility] Comment on above: Performed By: #### L [id number] ####[facility] ([facility])[address] [place] [address] Hematocrit (Bld) [Volume fraction] 26.4 % Low 39.0-55.0 [facility] Comment on above: Performed By: #### L [id number] ####[facility] ([facility])[address] [place] [address] Hemoglobin (Bld) [Mass/Vol] 8.9 g/dL Low 13.0-17.0 [facility] Comment on above: Performed By: #### L [id number] ####[facility] ([facility])[address] [place] [address] Immature granulocytes (Bld) [#/Vol] 0.07 10*3/uL Normal 0.00-0.20 [facility] Comment on above: Performed By: #### L [id number] ####[facility] ([facility])[address] [place] [address] Immature granulocytes/100 WBC (Bld) 0.8 % Normal 0.0-1.0 [facility] Comment on above: Performed By: #### L [id number] ####[facility] ([facility])[address] [place] [address] Lymphocytes (Bld) [#/Vol] 1.24 10*3/uL Normal 1.20-4.00 [facility] Comment on above: Performed By: #### L [id number] ####[facility] ([facility])[address] [place] [address] Lymphocytes/100 WBC (Bld) 13.3 % Low 20.0-45.0 [facility] Comment on above: Performed By: #### L [id number] ####[facility] ([facility])[address] [place] [address] MCH (RBC) [Entitic mass] 30.5 pg Normal 27.0-33.0 [facility] Comment on above: Performed By: #### L [id number] ####[facility] ([facility])[address] [place] [address] MCV (RBC) [Entitic vol] 90.4 fL Normal 82.0-98.0 [facility] Comment on above: Performed By: #### L [id number] ####[facility] ([facility])[address] [place] [address] Monocytes (Bld) [#/Vol] 0.72 10*3/uL Normal 0.10-1.00 [facility] Comment on above: Performed By: #### L [id number] ####[facility] ([facility])[address] [place] [address] Monocytes/100 WBC (Bld) 7.7 % Normal 5.0-12.0 [facility] Comment on above: Performed By: #### L [id number] ####[facility] ([facility])[address] [place] [address] Neutrophils (Bld) [#/Vol] 7.22 10*3/uL Normal 1.60-7.60 [facility] Comment on above: Performed By: #### L [id number] ####[facility] ([facility])[address] [place] [address] Neutrophils/100 WBC (Bld) 77.5 % High 40.0-72.0 [facility] Comment on above: Performed By: #### L [id number] ####[facility] ([facility])[address] [place] [address] NRBC (PER 100 WBCS) BY AUTOMATED COUNT 0.0 % Normal 0 [facility] Comment on above: Performed By: #### L [id number] ####[facility] ([facility])[address] [place] [address] PLATELETS (10*3/UL) IN BLOOD AUTOMATED COUNT 100 10*3/uL Low 150-400 [facility] Comment on above: Performed By: #### L [id number] ####[facility] ([facility])[address] [place] [address] RBC (Bld) [#/Vol] 2.92 10*6/uL Low 4.20-5.70 [facility] Comment on above: Performed By: #### L [id number] ####[facility] ([facility])[address] [place] [address] WBC (Bld) [#/Vol] 9.32 10*3/uL Normal 4.00-10.60 [facility] Comment on above: Performed By: #### L [id number] ####[facility] ([facility])[address] [place] [address] MAGNESIUMon 04-27-2023 Magnesium [Mass/Vol] 1.9 mg/dL Normal 1.9-2.7 [facility] Comment on above: Performed By: #### L [id number] ####[facility] ([facility])[address] [place] [address] PHOSPHORUSon 04-27-2023 Magnesium [Mass/Vol] 3.5 mg/dL Normal 2.5-5.0 [facility] Comment on above: Performed By: #### L [id number] ####[facility] ([facility])[address] [place] [address] POCT GLUCOSE METER UNSOLICIT ED RESULTSon 04-27-2023 Glucose [Mass/Vol] 100 mg/dL Normal 70-105 [facility] Comment on above: Order Comment: Waive d Testing in the ED is performed under the ED CLIA certificate #[id number]. Result Comment: [email or web address] [email or web address] Performed By: #### L [id number] ####[facility] ([facility])[address] [place] [address] Glucose [Mass/Vol] 165 mg/dL High 70-105 [facility] Comment on above: Order Comment: Waive d Testing in the ED is performed under the ED CLIA certificate #[id number]. Result Comment: [email or web address] Performed By: #### L [id number] ####[facility] ([facility])[address] [place] [address] Glucose [Mass/Vol] 157 mg/dL High 70-105 [facility] Comment on above: Order Comment: Waive d Testing in the ED is performed under the ED CLIA certificate #[id number]. Result Comment: [email or web address] Performed By: #### L [id number] ####[facility] ([facility])[address] [place] [address] Glucose [Mass/Vol] 112 mg/dL High 70-105 [facility] Comment on above: Order Comment: Waive d Testing in the ED is performed under the ED CLIA certificate #[id number]. Result Comment: [email or web address] [email or web address] Performed By: #### L [id number] ####[facility] ([facility])[address] [place] [address] PROTIME-INRon 04-27-2023 INR IN PPP BY COAGULATION ASSAY 1.21 High 0.90-1.10 [facility] Comment on above: Result Comment: ACCC P [...] CHEST 1995;[id number]. Performed By: #### L [id number] ####[facility] ([facility])[address] [place] [address] PROTHROMBIN TIME (PT) IN PPP BY COAGULATION ASSAY 15.3 Seconds High 12.3-14.8 [facility] Comment on above: Performed By: #### L [id number] ####[facility] ([facility])[address] [place] [address] 30on 04-26-2023 30 Normal [facility] 30 Normal [facility] 30 Normal [facility] 30 Normal [facility] BASIC METABOLIC PANELon 04-17 Anion gap [Moles/Vol] 10 mmol/L Normal 7-20 [facility] Comment on above: Performed By: #### L [id number] ####[facility] ([facility])[address] [place] [address] Calcium [Mass/Vol] 8.5 mg/dL Low 8.6-10.3 [facility] Comment on above: Performed By: #### L [id number] ####[facility] ([facility])[address] [place] [address] Chloride [Moles/Vol] 109 mmol/L High 98-107 [facility] Comment on above: Performed By: #### L [id number] ####[facility] (BEAKER)[address] [place] [address] CO2 [Moles/Vol] 25 mmol/L Normal 21-31 [facility] Comment on above: Performed By: #### L [id number] ####[facility] (BEAKER)[address] [place] [address] Creatinine [Mass/Vol] 0.62 mg/dL Low 0.70-1.30 [facility] Comment on above: Performed By: #### L [id number] ####[facility] (BEAKER)[address] [place] [address] GLOMERULAR FILTRATION RATE ML/MIN/1.73 SQ M.PREDICTED 103.5 mL/min/1.73m*2 Normal >60.0 [facility] Comment on above: Result Comment: The [facility]???s estimated glomerular filtration rate (eGFR) will no [...] of individuals. Performed By: #### L [id number] ####[facility] ([facility])[address] [place] [address] Glucose [Mass/Vol] 136 mg/dL High 70-100 [facility] Comment on above: Performed By: #### L [id number] ####[facility] ([facility])[address] [place] [address] Potassium [Moles/Vol] 3.6 mmol/L Normal 3.5-5.1 [facility] Comment on above: Performed By: #### L [id number] ####[facility] ([facility])[address] [place] [address] Sodium [Moles/Vol] 140 mmol/L Normal 136-145 [facility] Comment on above: Performed By: #### L [id number] ####[facility] ([facility])[address] [facility] [address] Urea nitrogen [Mass/Vol] 18 mg/dL Normal 7-25 [facility] Comment on above: Performed By: #### L [id number] ####[facility] ([facility])[address] [place] [address] UREA NITROGEN/CREATININ E (MASS RATIO) IN SER/PLAS 29.0 Normal [facility] Comment on above: Performed By: #### L [id number] ####[facility] ([facility])[address] [place] [address] Anion gap [Moles/Vol] 9 mmol/L Normal 7-20 [facility] Comment on above: Performed By: #### L [id number] ####[facility] (BEAKER)[address] [place] [address] Calcium [Mass/Vol] 7.8 mg/dL Low 8.6-10.3 [facility] Comment on above: Performed By: #### L [id number] ####[facility] ([facility])[address] [place] [address] Chloride [Moles/Vol] 112 mmol/L High 98-107 [facility] Comment on above: Performed By: #### L [id number] ####[facility] ([facility])[address] [place] [address] CO2 [Moles/Vol] 23 mmol/L Normal 21-31 [facility] Comment on above: Performed By: #### L [id number] ####[facility] ([facility])[address] [place] [address] Creatinine [Mass/Vol] 0.61 mg/dL Low 0.70-1.30 [facility] Comment on above: Performed By: #### L [id number] ####[facility] ([facility])[address] [place] [address] GLOMERULAR FILTRATION RATE ML/MIN/1.73 SQ M.PREDICTED 104.0 mL/min/1.73m*2 Normal >60.0 [facility] Comment on above: Result Comment: The [facility]???s estimated glomerular filtration rate (eGFR) will no [...] of individuals. Performed By: #### L [id number] ####[facility] ([facility])[address] [place] [address] Glucose [Mass/Vol] 112 mg/dL High 70-100 [facility] Comment on above: Performed By: #### L [id number] ####[facility] ([facility])[address] [place] [address] Potassium [Moles/Vol] 3.4 mmol/L Low 3.5-5.1 [facility] Comment on above: Performed By: #### L [id number] ####[facility] ([facility])[address] [place] [address] Sodium [Moles/Vol] 141 mmol/L Normal 136-145 [facility] Comment on above: Performed By: #### L [id number] ####[facility] ([facility])[address] [place] [address] Urea nitrogen [Mass/Vol] 14 mg/dL Normal 7-25 [facility] Comment on above: Performed By: #### L [id number] ####[facility] ([facility])[address] [place] [address] UREA NITROGEN/CREATININ E (MASS RATIO) IN SER/PLAS 23.0 Normal [facility] Comment on above: Performed By: #### L [id number] ####[facility] ([facility])[address] [place] [address] CBCon 04-26-2023 Erythrocyte distribution width (RBC) [Ratio] 13.9 % Normal 11.5-15.0 [facility] Comment on above: Performed By: #### L [id number] ####[facility] ([facility])[address] [place] [address] ERYTHROCYTE MEAN CORPUSCULAR HEMOGLOBIN CONCENTRATION (G/DL) BY AUTOMATED 33.7 g/dL Normal 32.0-35.0 [facility] Comment on above: Performed By: #### L [id number] ####[facility] ([facility])[address] [place] [address] Hematocrit (Bld) [Volume fraction] 24.3 % Low 39.0-55.0 [facility] Comment on above: Performed By: #### L [id number] ####[facility] ([facility])[address] [place] [address] Hemoglobin (Bld) [Mass/Vol] 8.2 g/dL Low 13.0-17.0 [facility] Comment on above: Performed By: #### L [id number] ####[facility] ([facility])[address] [place] [address] IMMATURE PLATELET FRACTION % 4.3 % Normal 0.8-6.3 [facility] Comment on above: Performed By: #### L [id number] ####[facility] ([facility])[address] [place] [address] MCH (RBC) [Entitic mass] 30.4 pg Normal 27.0-33.0 [facility] Comment on above: Performed By: #### L [id number] ####[facility] ([facility])[address] [place] [address] MCV (RBC) [Entitic vol] 90.0 fL Normal 82.0-98.0 [facility] Comment on above: Performed By: #### L [id number] ####[facility] ([facility])[address] [place] [address] PLATELETS (10*3/UL) IN BLOOD AUTOMATED COUNT 71 10*3/uL Low 150-400 [facility] Comment on above: Performed By: #### L [id number] ####[facility] ([facility])[address] [place] [address] RBC (Bld) [#/Vol] 2.70 10*6/uL Low 4.20-5.70 [facility] Comment on above: Performed By: #### L [id number] ####[facility] ([facility])[address] [place] [address] WBC (Bld) [#/Vol] 7.74 10*3/uL Normal 4.00-10.60 [facility] Comment on above: Performed By: #### L [id number] ####[facility] (BEAKER)[address] [place] [address] CO-OXIMETRYon 04-26-2023 CARBOXYHEMOGLOBIN/ HEMOGLOBIN TOTAL % IN BLOOD 1.4 % Normal [facility] Comment on above: Performed By: #### L [id number] ####[facility] [id number] [place] [address] [place] Hemoglobin (Bld) [Mass/Vol] 8.5 g/dL Normal [facility] Comment on above: Performed By: #### L [id number] ####[facility] [id number] [place] [address] [place] METHEMOGLOBIN/100 IN BLOOD 0.3 % Normal 0.0-1.5 [facility] Comment on above: Performed By: #### L [id number] ####[facility] [id number] [place] [address] [place] Oxygen saturation in Blood 57.1 % Normal [facility] Comment on above: Performed By: #### L [id number] ####[facility] [id number] [place] [address] [place] OXYGENATED HEMOGLOBIN IN BLOOD 56.1 % Normal [facility] Comment on above: Performed By: #### L [id number] ####[facility] [id number] [place] [address] [place] IRON AND TIBCon 04-26-2023 IRON (UG/DL) IN SER/PLAS 16 ug/dL Low 50-212 [facility] Comment on above: Performed By: #### L [id number] ####[facility] (BEAKER)[address] [place] [address] IRON BINDING CAPACITY (UG/DL) IN SER/PLAS 143 ug/dL Low 250-450 [facility] Comment on above: Performed By: #### L [id number] ####[facility] (BEAKER)[address] [place] [address] IRON BINDING CAPACITY.UNSATURAT ED (UG/DL) IN SER/PLAS 127.0 ug/dL Low 155.0-355.0 [facility] Comment on above: Performed By: #### L [id number] ####[facility] ([facility])[address] [place] [address] IRON SATURATION (%) IN SER/PLAS 11 % Low 20-50 [facility] Comment on above: Performed By: #### L [id number] ####[facility] ([facility])[address] [place] [address] LACTIC ACID, PLASMAon 2022 LACTATE (MMOL/L) IN SER/PLAS 0.6 mmol/L Normal 0.5-2.2 [facility] Comment on above: Performed By: #### L [id number] ####[facility] ([facility])[address] [place] [address] MAGNESIUMon 04-26-2023 Magnesium [Mass/Vol] 1.6 mg/dL Low 1.9-2.7 [facility] Comment on above: Performed By: #### L [id number] ####[facility] ([facility])[address] [place] [address] Magnesium [Mass/Vol] 1.7 mg/dL Low 1.9-2.7 [facility] Comment on above: Performed By: #### L [id number] ####[facility] ([facility])[address] [place] [address] PHOSPHORUSon 04-26-2023 Magnesium [Mass/Vol] 3.4 mg/dL Normal 2.5-5.0 [facility] Comment on above: Performed By: #### L [id number] ####[facility] ([facility])[address] [place] [address] Magnesium [Mass/Vol] 3.7 mg/dL Normal 2.5-5.0 [facility] Comment on above: Performed By: #### L [id number] ####[facility] ([facility])[address] [place] [address] POCT GLUCOSE METER UNSOLICIT ED RESULTSon 04-26-2023 Glucose [Mass/Vol] 134 mg/dL High 70-105 [facility] Comment on above: Order Comment: Waive d Testing in the ED is performed under the ED CLIA certificate #[id number]. Result Comment: cfit ch4 Performed By: #### L [id number] ####[facility] ([facility])[address] [place] [address] Glucose [Mass/Vol] 129 mg/dL High 70-105 [facility] Comment on above: Order Comment: Waive d Testing in the ED is performed under the ED CLIA certificate #[id number]. Result Comment: cfit ch4 Performed By: #### L [id number] ####[facility] ([facility])[address] [place] [address] Glucose [Mass/Vol] 121 mg/dL High 70-105 [facility] Comment on above: Order Comment: Waive d Testing in the ED is performed under the ED CLIA certificate #[id number]. Result Comment: than sen2 Performed By: #### L [id number] ####[facility] ([facility])[address] [place] [address] Glucose [Mass/Vol] 113 mg/dL High 70-105 [facility] Comment on above: Order Comment: Waive d Testing in the ED is performed under the ED CLIA certificate #[id number]. Result Comment: than sen2 Performed By: #### L [id number] ####[facility] ([facility])[address] [place] [address] PREALBUMINon 04-26-2023 Prealbumin [Mass/Vol] 6.4 mg/dL Normal [facility] Comment on above: Performed By: #### L [id number] ####[facility] ([facility])[address] [place] [address] TRANSFERRINon 04-26-2023 Magnesium [Mass/Vol] 82 mg/dL Low 168-348 [facility] Comment on above: Performed By: #### L [id number] ####[facility] ([facility])[address] [place] [address] 30on 04-25-2023 30 Normal [facility] AMMONIAon 04-25-2023 AMMONIA (UMOL/L) IN PLASMA 39 umol/L Normal 18-72 [facility] Comment on above: Performed By: #### L [id number] ####[facility] ([facility])[address] [place] [address] APTTon 04-25-2023 ACTIVATED PARTIAL THROMBOPLASTIN TIME IN PPP BY COAGULATION ASSAY 37.2 Seconds High 25.0-35.0 [facility] Comment on above: Result Comment: Clin ical significance of the APTT is questionable in the presence of heparin. Performed By: #### L [id number] ####[facility] ([facility])[address] [place] [address] BASIC METABOLIC PANELon Anion gap [Moles/Vol] 9 mmol/L Normal 7-20 [facility] Comment on above: Performed By: #### L [id number] ####[facility] ([facility])[address] [place] [address] Calcium [Mass/Vol] 8.2 mg/dL Low 8.6-10.3 [facility] Comment on above: Performed By: #### L [id number] ####[facility] ([facility])[address] [place] [address] Chloride [Moles/Vol] 111 mmol/L High 98-107 [facility] Comment on above: Performed By: #### L [id number] ####[facility] ([facility])[address] [place] [address] CO2 [Moles/Vol] 24 mmol/L Normal 21-31 [facility] Comment on above: Performed By: #### L [id number] ####[facility] ([facility])[address] [place] [address] Creatinine [Mass/Vol] 0.71 mg/dL Normal 0.70-1.30 [facility] Comment on above: Performed By: #### L [id number] ####[facility] ([facility])[address] [place] [address] GLOMERULAR FILTRATION RATE ML/MIN/1.73 SQ M.PREDICTED 99.3 mL/min/1.73m*2 Normal >60.0 [facility] Comment on above: Result Comment: The [facility]???s estimated glomerular filtration rate (eGFR) will no [...] of individuals. Performed By: #### L [id number] ####[facility] ([facility])[address] [place] [address] Glucose [Mass/Vol] 124 mg/dL High 70-100 [facility] Comment on above: Performed By: #### L [id number] ####[facility] ([facility])[address] [place] [address] Potassium [Moles/Vol] 3.9 mmol/L Normal 3.5-5.1 [facility] Comment on above: Performed By: #### L [id number] ####[facility] ([facility])[address] [place] [address] Sodium [Moles/Vol] 140 mmol/L Normal 136-145 [facility] Comment on above: Performed By: #### L [id number] ####[facility] (BEAKER)[address] [place] [address] Urea nitrogen [Mass/Vol] 17 mg/dL Normal 7-25 [facility] Comment on above: Performed By: #### L [id number] ####[facility] ([facility])[address] [place] [address] UREA NITROGEN/CREATININ E (MASS RATIO) IN SER/PLAS 23.9 Normal [facility] Comment on above: Performed By: #### L [id number] ####[facility] ([facility])[address] [place] [address] CBCon 04-25-2023 Erythrocyte distribution width (RBC) [Ratio] 14.0 % Normal 11.5-15.0 [facility] Comment on above: Performed By: #### L [id number] ####[facility] ([facility])[address] [address] ERYTHROCYTE MEAN CORPUSCULAR HEMOGLOBIN CONCENTRATION (G/DL) BY AUTOMATED 34.1 g/dL Normal 32.0-35.0 [facility] Comment on above: Performed By: #### L [id number] ####[facility] ([facility])[address] [address] Hematocrit (Bld) [Volume fraction] 24.9 % Low 39.0-55.0 [facility] Comment on above: Performed By: #### L [id number] ####[facility] ([facility])[address] [address] Hemoglobin (Bld) [Mass/Vol] 8.5 g/dL Low 13.0-17.0 [facility] Comment on above: Performed By: #### L [id number] ####[facility] ([facility])[address], [place] [address] IMMATURE PLATELET FRACTION % 5.1 % Normal 0.8-6.3 [facility] Comment on above: Performed By: #### L [id number] ####[facility] ([facility])[address] [address] MCH (RBC) [Entitic mass] 30.7 pg Normal 27.0-33.0 [facility] Comment on above: Performed By: #### L [id number] ####[facility] ([facility])[address] [address] MCV (RBC) [Entitic vol] 89.9 fL Normal 82.0-98.0 [facility] Comment on above: Performed By: #### L [id number] ####[facility] ([facility])[address] [address] PLATELETS (10*3/UL) IN BLOOD AUTOMATED COUNT 55 10*3/uL Low 150-400 [facility] Comment on above: Performed By: #### L [id number] ####[facility] ([facility])[address] [address] RBC (Bld) [#/Vol] 2.77 10*6/uL Low 4.20-5.70 [facility] Comment on above: Performed By: #### L [id number] ####[facility] ([facility])[address] [address] WBC (Bld) [#/Vol] 9.29 10*3/uL Normal 4.00-10.60 [facility] Comment on above: Performed By: #### L [id number] ####[facility] ([facility])[address] [address] Erythrocyte distribution width (RBC) [Ratio] 14.6 % Normal 11.5-15.0 [facility] Comment on above: Performed By: #### L [id number] ####[facility] (BEAKER)[address] [address] ERYTHROCYTE MEAN CORPUSCULAR HEMOGLOBIN CONCENTRATION (G/DL) BY AUTOMATED 34.1 g/dL Normal 32.0-35.0 [facility] Comment on above: Performed By: #### L [id number] ####[facility] (BEAKER)[address] [address] Hematocrit (Bld) [Volume fraction] 25.5 % Low 39.0-55.0 [facility] Comment on above: Performed By: #### L [id number] ####[facility] (BEAKER)[address], [place] [address] Hemoglobin (Bld) [Mass/Vol] 8.7 g/dL Low 13.0-17.0 [facility] Comment on above: Performed By: #### L [id number] ####[facility] (BEAKER)[address], [place] [address] IMMATURE PLATELET FRACTION % 5.5 % Normal 0.8-6.3 [facility] Comment on above: Performed By: #### L [id number] ####[facility] ([facility])[address] [place] [address] MCH (RBC) [Entitic mass] 31.0 pg Normal 27.0-33.0 [facility] Comment on above: Performed By: #### L [id number] ####[facility] ([facility])[address] [place] [address] MCV (RBC) [Entitic vol] 90.7 fL Normal 82.0-98.0 [facility] Comment on above: Performed By: #### L [id number] ####[facility] ([facility])[address] [place] [address] PLATELETS (10*3/UL) IN BLOOD AUTOMATED COUNT 56 10*3/uL Low 150-400 [facility] Comment on above: Result Comment: P=69 , 1D Performed By: #### L [id number] ####[facility] ([facility])[address] [place] [address] RBC (Bld) [#/Vol] 2.81 10*6/uL Low 4.20-5.70 [facility] Comment on above: Performed By: #### L [id number] ####[facility] ([facility])[address] [place] [address] WBC (Bld) [#/Vol] 10.33 10*3/uL Normal 4.00-10.60 [facility] Comment on above: Performed By: #### L [id number] ####[facility] ([facility])[address] [place] [address] CO-OXIMETRYon 04-25-2023 CARBOXYHEMOGLOBIN/ HEMOGLOBIN TOTAL % IN BLOOD 0.8 % Normal [facility] Comment on above: Performed By: #### L [id number] ####[facility] [id number] [place] [address] [place] Hemoglobin (Bld) [Mass/Vol] 7.8 g/dL Normal [facility] Comment on above: Performed By: #### L [id number] ####[facility] [id number] [place] [address] [place] METHEMOGLOBIN/100 IN BLOOD 1.1 % Normal 0.0-1.5 [facility] Comment on above: Performed By: #### L [id number] ####[facility] [id number] [place] [address] [place] Oxygen saturation in Blood 70.2 % Normal [facility] Comment on above: Performed By: #### L [id number] ####[facility] [id number] [place] [address] [place] OXYGENATED HEMOGLOBIN IN BLOOD 68.8 % Normal [facility] Comment on above: Performed By: #### L [id number] ####[facility] [id number] [place] [address] [facility] HEPATIC FUNCTION PANELon Albumin [Mass/Vol] 3.3 g/dL Low 3.5-5.7 [facility] Comment on above: Performed By: #### L [id number] ####[facility] (BEAKER)[address] [place] [address] ALP [Catalytic activity/Vol] 49 U/L Normal 34-104 [facility] Comment on above: Performed By: #### L [id number] ####[facility] (BEAKER)[address] [place] [address] ALT [Catalytic activity/Vol] 60 U/L High 7-52 [facility] Comment on above: Performed By: #### L [id number] ####[facility] (BEAKER)[address] [place] [address] AST [Catalytic activity/Vol] 127 U/L High 13-39 [facility] Comment on above: Performed By: #### L [id number] ####[facility] (BEAKER)[address] [place] [address] Bilirubin [Mass/Vol] 0.5 mg/dL Normal 0.3-1.0 [facility] Comment on above: Performed By: #### L [id number] ####[facility] ([facility])[address] [place] [address] Magnesium [Mass/Vol] 0.2 mg/dL Normal 0-0.2 [facility] Comment on above: Performed By: #### L [id number] ####[facility] ([facility])[address] [place] [address] Protein [Mass/Vol] 4.8 g/dL Low 6.0-8.3 [facility] Comment on above: Performed By: #### L [id number] ####[facility] ([facility])[address] [place] [address] LACTIC ACID WITH 4 HOUR REFL EXon 04-25-2023 LACTATE (MMOL/L) IN SER/PLAS 1.4 mmol/L Normal 0.5-2.2 [facility] Comment on above: Performed By: #### L [id number] ####[facility] ([facility])[address] [place] [address] MAGNESIUMon 04-25-2023 Magnesium [Mass/Vol] 1.7 mg/dL Low 1.9-2.7 [facility] Comment on above: Performed By: #### L [id number] ####[facility] ([facility])[address] [place] [address] NURSNOTEon 04-25-2023 NURSNOTE Normal [facility] NURSNOTE Normal [facility] PHOSPHORUSon 04-25-2023 Magnesium [Mass/Vol] 2.3 mg/dL Low 2.5-5.0 [facility] Comment on above: Performed By: #### L [id number] ####[facility] ([facility])[address] [place] [address] POCT GLUCOSE METER UNSOLICIT ED RESULTSon 04-25-2023 Glucose [Mass/Vol] 106 mg/dL High 70-105 [facility] Comment on above: Order Comment: Waive d Testing in the ED is performed under the ED CLIA certificate #[id number]. Result Comment: rsuz suraj Performed By: #### L [id number] ####[facility] ([employer])[address] [facility] [place] [address] Glucose [Mass/Vol] 128 mg/dL High 70-105 [facility] Comment on above: Order Comment: Waive d Testing in the ED is performed under the ED CLIA certificate #[id number]. Result Comment: [email or web address] Performed By: #### L [id number] ####[facility] ([employer])[address] [place] [address] PROTIME-INRon 04-25-2023 INR IN PPP BY COAGULATION ASSAY 1.34 High 0.90-1.10 [facility] Comment on above: Result Comment: ACCC P [...] CHEST 1995;108:231S-246S. Performed By: #### L [id number] ####[facility] ([employer])[address] [place] [address] PROTHROMBIN TIME (PT) IN PPP BY COAGULATION ASSAY 16.6 Seconds High 12.3-14.8 [facility] Comment on above: Performed By: #### L [id number] ####[facility] ([employer])[address] [place] [address] INR IN PPP BY COAGULATION ASSAY 1.39 High 0.90-1.10 [facility] Comment on above: Result Comment: ACCC P [...] CHEST 1995;108:231S-246S. Performed By: #### L [id number] ####[facility] ([facility])[address] [place] [address] PROTHROMBIN TIME (PT) IN PPP BY COAGULATION ASSAY 17.1 Seconds High 12.3-14.8 [facility] Comment on above: Performed By: #### L [id number] ####[facility] ([facility])[address] [place] [address] 30on 04-24-2023 30 Normal [facility] 30 Normal [facility] 30 Normal [facility] ARTERIAL BLOOD GAS WITH IONI ZED CALCIUMon 04-24-2023 Base excess Calc (Bld) [Moles/Vol] -2.0000 mmol/L Normal -2.0-3.0 [facility] Comment on above: Performed By: #### L [id number] ####[facility] [id number] [place] [address] [place] CALCIUM IONIZED (MMOL/L) IN BLOOD 1.06 mmol/L Low 1.15-1.33 [facility] Comment on above: Performed By: #### L [id number] ####[facility] [id number] [address] CO2 (Bld) [Partial pressure] 31 mm[Hg] Low 35-48 [facility] Comment on above: Performed By: #### L [id number] ####[facility] [id number] [address] HCO3 (Bld) [Moles/Vol] 21.5 mmol/L Normal 21.0-28.0 [facility] Comment on above: Performed By: #### L [id number] ####[facility] [id number] [place] [address] Oxygen (Bld) [Partial pressure] 118 mm[Hg] High 83-100 [facility] Comment on above: Performed By: #### L [id number] ####[facility] [id number] [place] [address] OXYGEN SATURATION (%) IN ARTERIAL BLOOD 99.4 % High 94.0-98.0 [facility] Comment on above: Performed By: #### L [id number] ####[facility] [id number] [place] [address] pH (Bld) 7.45 [pH] Normal 7.35-7.45 [facility] Comment on above: Performed By: #### L [id number] ####[facility] [id number] [place] [address] SOURCE OF OXYGEN AC/VC Normal [facility] Comment on above: Performed By: #### L [id number] ####[facility] [id number] [place] [address] TIDAL VOLUME (VT) CC 8 Normal [facility] Comment on above: Performed By: #### L [id number] ####[facility] [id number] [place] [address] BASIC METABOLIC PANELon 11-0 Anion gap [Moles/Vol] 10 mmol/L Normal 7-20 [facility] Comment on above: Performed By: #### L [id number] ####[facility] ([facility])[address] [place] [address] Calcium [Mass/Vol] 8.5 mg/dL Low 8.6-10.3 [facility] Comment on above: Performed By: #### L [id number] ####[facility] ([facility])[address] [facility] [address] Chloride [Moles/Vol] 113 mmol/L High 98-107 [facility] Comment on above: Performed By: #### L [id number] ####[facility] ([facility])[address] [place] [address] CO2 [Moles/Vol] 24 mmol/L Normal 21-31 [facility] Comment on above: Performed By: #### L [id number] ####[facility] ([facility])[address] [facility] [address] Creatinine [Mass/Vol] 0.83 mg/dL Normal 0.70-1.30 [facility] Comment on above: Performed By: #### L [id number] ####[facility] ([facility])[address] [place] [address] GLOMERULAR FILTRATION RATE ML/MIN/1.73 SQ M.PREDICTED 94.7 mL/min/1.73m*2 Normal >60.0 [facility] Comment on above: Result Comment: The [facility]???s estimated glomerular filtration rate (eGFR) will no [...] of individuals. Performed By: #### L [id number] ####[facility] (BEAKER)[address] [place] [address] Glucose [Mass/Vol] 208 mg/dL High 70-100 [facility] Comment on above: Performed By: #### L [id number] ####[facility] ([facility])[address] [place] [address] Potassium [Moles/Vol] 3.6 mmol/L Normal 3.5-5.1 [facility] Comment on above: Performed By: #### L [id number] ####[facility] ([facility])[address] [place] [address] Sodium [Moles/Vol] 143 mmol/L Normal 136-145 [facility] Comment on above: Performed By: #### L [id number] ####[facility] ([facility])[address] [facility] [address] Urea nitrogen [Mass/Vol] 19 mg/dL Normal 7-25 [facility] Comment on above: Performed By: #### L [id number] ####[facility] ([facility])[address] [facility] [address] UREA NITROGEN/CREATININ E (MASS RATIO) IN SER/PLAS 22.9 Normal [facility] Comment on above: Performed By: #### L [id number] ####[facility] (BEAKER)[address] [facility] [address] CALCIUM, IONIZEDon CALCIUM IONIZED (MMOL/L) IN BLOOD 1.20 mmol/L Normal 1.15-1.33 [facility] Comment on above: Performed By: #### C ALCIUM, IONIZED ####[facility] [id number] [facility] [address] [place] CBCon 04-24-2023 Erythrocyte distribution width (RBC) [Ratio] 13.9 % Normal 11.5-15.0 [facility] Comment on above: Performed By: #### L [id number] ####[facility] (BEAKER)[address] [facility] [address] ERYTHROCYTE MEAN CORPUSCULAR HEMOGLOBIN CONCENTRATION (G/DL) BY AUTOMATED 34.3 g/dL Normal 32.0-35.0 [facility] Comment on above: Performed By: #### L [id number] ####[facility] ([facility])[address] [place] [address] Hematocrit (Bld) [Volume fraction] 28.0 % Low 39.0-55.0 [facility] Comment on above: Performed By: #### L [id number] ####[facility] ([facility])[address] [place] [address] Hemoglobin (Bld) [Mass/Vol] 9.6 g/dL Low 13.0-17.0 [facility] Comment on above: Performed By: #### L [id number] ####[facility] ([facility])[address] [place] [address] IMMATURE PLATELET FRACTION % 5.1 % Normal 0.8-6.3 [facility] Comment on above: Performed By: #### L [id number] ####[facility] ([facility])[address] [place] [address] MCH (RBC) [Entitic mass] 30.7 pg Normal 27.0-33.0 [facility] Comment on above: Performed By: #### L [id number] ####[facility] ([facility])[address] [place] [address] MCV (RBC) [Entitic vol] 89.5 fL Normal 82.0-98.0 [facility] Comment on above: Performed By: #### L [id number] ####[facility] ([facility])[address] [place] [address] PLATELETS (10*3/UL) IN BLOOD AUTOMATED COUNT 69 10*3/uL Low 150-400 [facility] Comment on above: Performed By: #### L [id number] ####[facility] ([facility])[address] [place] [address] RBC (Bld) [#/Vol] 3.13 10*6/uL Low 4.20-5.70 [facility] Comment on above: Performed By: #### L [id number] ####[facility] (BEAKER)[address] [place] [address] WBC (Bld) [#/Vol] 16.62 10*3/uL High 4.00-10.60 [facility] Comment on above: Performed By: #### L [id number] ####[facility] (BEAKER)[address] [place] [address] CO-OXIMETRYon 04-24-2023 CARBOXYHEMOGLOBIN/ HEMOGLOBIN TOTAL % IN BLOOD 1.2 % Normal [facility] Comment on above: Performed By: #### L [id number] ####[facility] [id number] [place] [address] [place] Hemoglobin (Bld) [Mass/Vol] 9.6 g/dL Normal [facility] Comment on above: Performed By: #### L [id number] ####[facility] [id number] [place] [address] [place] METHEMOGLOBIN/100 IN BLOOD 0.4 % Normal 0.0-1.5 [facility] Comment on above: Performed By: #### L [id number] ####[facility] [id number] [place] [address] [place] Oxygen saturation in Blood 67.5 % Normal [facility] Comment on above: Performed By: #### L [id number] ####[facility] [id number] [place] [address] [place] OXYGENATED HEMOGLOBIN IN BLOOD 66.4 % Normal [facility] Comment on above: Performed By: #### L [id number] ####[facility] [id number] [place] [address] [place] HEMOGLOBIN AND HEMATOCRIT, B LOODon 04-24-2023 Hematocrit (Bld) [Volume fraction] 28.1 % Low 39.0-55.0 [facility] Comment on above: Performed By: #### L [id number] ####[facility] (BEAKER)[address] [place] [address] Hemoglobin (Bld) [Mass/Vol] 9.5 g/dL Low 13.0-17.0 [facility] Comment on above: Performed By: #### L [id number] ####[facility] ([facility])[address] [place] [address] HEPATIC FUNCTION PANELon Albumin [Mass/Vol] 3.7 g/dL Normal 3.5-5.7 [facility] Comment on above: Performed By: #### L [id number] ####[facility] ([facility])[address] [place] [address] ALP [Catalytic activity/Vol] 39 U/L Normal 34-104 [facility] Comment on above: Performed By: #### L [id number] ####[facility] ([facility])[address] [place] [address] ALT [Catalytic activity/Vol] 82 U/L High 7-52 [facility] Comment on above: Performed By: #### L [id number] ####[facility] ([facility])[address] [place] [address] AST [Catalytic activity/Vol] 229 U/L High 13-39 [facility] Comment on above: Performed By: #### L [id number] ####[facility] ([facility])[address] [place] [address] Bilirubin [Mass/Vol] 0.5 mg/dL Normal 0.3-1.0 [facility] Comment on above: Performed By: #### L [id number] ####[facility] ([facility])[address] [place] [address] Magnesium [Mass/Vol] 0.2 mg/dL Normal 0-0.2 [facility] Comment on above: Performed By: #### L [id number] ####[facility] ([facility])[address] [place] [address] Protein [Mass/Vol] 4.9 g/dL Low 6.0-8.3 [facility] Comment on above: Performed By: #### L [id number] ####[facility] ([facility])[address] [place] [address] LACTIC ACID WITH 4 HOUR REFL EXon 04-24-2023 LACTATE (MMOL/L) IN SER/PLAS 1.3 mmol/L Normal 0.5-2.2 [facility] Comment on above: Performed By: #### L [id number] ####[facility] ([facility])[address] [place] [address] Performed By: #### L AB95 ####[facility] ([facility])[address] [place] [address] LACTATE (MMOL/L) IN SER/PLAS 4.0 mmol/L Critically high 0.5-2.2 [facility] Comment on above: Result Comment: Prev ious result verified on 04/23/20232299 on specimen/case [id number] called with component Lactate blood venous for procedure Lactic acid, venous, whole blood with value 9.1 mmol/L. Performed By: #### L [id number] ####[facility] ([facility])[address] [place] [address] LACTATE (MMOL/L) IN SER/PLAS 9.1 mmol/L Critically high 0.5-2.2 [facility] Comment on above: Result Comment: Prev ious result verified on 04/23/20232136 on specimen/case [id number] called with component Lactate blood venous for procedure Lactic acid, venous, whole blood with value 12.1 mmol/L. Performed By: #### L [id number] ####[facility] ([facility])[address] [place] [address] MAGNESIUMon 04-24-2023 Magnesium [Mass/Vol] 1.8 mg/dL Low 1.9-2.7 [facility] Comment on above: Performed By: #### L [id number] ####[facility] ([facility])[address] [place] [address] MYOGLOBIN, URINEon MYOGLOBIN URINE 2 mg/L High 0-1 [facility] Comment on above: Result Comment: [...] was developed and its performance characteristicsdetermined by [facility]. It has not been cleared orapproved by the [place] Food and Drug Administration. This test wasperformed in a CLIA certified laboratory and is intended forclinical purposes.Performed By: [facility] [place], [place] [address]Knyvcqisnz Director: Wenceslao Healy MD, PhDCLIA Number: [id number] Performed By: #### L [id number] ####[facility] ([facility])[address] [place] [address] POCT GLUCOSE METER UNSOLICIT ED RESULTSon 04-24-2023 Glucose [Mass/Vol] 129 mg/dL High 70-105 [facility] Comment on above: Order Comment: Waive d Testing in the ED is performed under the ED CLIA certificate #[id number]. Result Comment: [email or web address] [email or web address] Performed By: #### L [id number] ####[facility] (BEAKER)[address] [place] [address] Glucose [Mass/Vol] 116 mg/dL High 70-105 [facility] Comment on above: Order Comment: Waive d Testing in the ED is performed under the ED CLIA certificate #[id number]. Result Comment: [email or web address] [email or web address] Performed By: #### L [id number] ####[facility] ([facility]AKER)[address] [place] [address] Glucose [Mass/Vol] 106 mg/dL High 70-105 [facility] Comment on above: Order Comment: Waive d Testing in the ED is performed under the ED CLIA certificate #[id number]. Result Comment: nhay man Performed By: #### L [id number] ####[facility] ([facility]AKER)[address] [place] [address] Glucose [Mass/Vol] 113 mg/dL High 70-105 [facility] Comment on above: Order Comment: Waive d Testing in the ED is performed under the ED CLIA certificate #[id number]. Result Comment: nhay man Performed By: #### L [id number] ####[facility] ([facility])[address] [place] [address] Glucose [Mass/Vol] 118 mg/dL High 70-105 [facility] Comment on above: Order Comment: Waive d Testing in the ED is performed under the ED CLIA certificate #[id number]. Result Comment: nhay man Performed By: #### L [id number] ####[facility] ([facility])[address] [place] [address] Glucose [Mass/Vol] 75 mg/dL Normal 70-105 [facility] Comment on above: Order Comment: Waive d Testing in the ED is performed under the ED CLIA certificate #[id number]. Result Comment: nhay man Performed By: #### L [id number] ####[facility] ([facility])[address] [place] [address] Glucose [Mass/Vol] 163 mg/dL High 70-105 [facility] Comment on above: Order Comment: Waive d Testing in the ED is performed under the ED CLIA certificate #[id number]. Result Comment: than sen2 Performed By: #### L [id number] ####[facility] ([facility]ER)[address] [place] [address] Glucose [Mass/Vol] 176 mg/dL High 70-105 [facility] Comment on above: Order Comment: Waive d Testing in the ED is performed under the ED CLIA certificate #[id number]. Result Comment: than sen2 Performed By: #### L [id number] ####[facility] ([facility]ER)[address] [place] [address] Glucose [Mass/Vol] 147 mg/dL High 70-105 [facility] Comment on above: Order Comment: Waive d Testing in the ED is performed under the ED CLIA certificate #[id number]. Result Comment: kste [email or web address] Performed By: #### L [id number] ####[facility] ([facility]ER)[address] [place] [address] Glucose [Mass/Vol] 199 mg/dL High 70-105 [facility] Comment on above: Order Comment: Waive d Testing in the ED is performed under the ED CLIA certificate #[id number]. Result Comment: kste [email or web address] Performed By: #### L [id number] ####[facility] ([facility])[address] [place] [address] Glucose [Mass/Vol] 202 mg/dL High 70-105 [facility] Comment on above: Order Comment: Waive d Testing in the ED is performed under the ED CLIA certificate #[id number]. Result Comment: than sen2 Performed By: #### L [id number] ####[facility] ([facility])[address] [place] [address] Glucose [Mass/Vol] 233 mg/dL High 70-105 [facility] Comment on above: Order Comment: Waive d Testing in the ED is performed under the ED CLIA certificate #[id number]. Result Comment: than sen2 Performed By: #### L [id number] ####[facility] ([facility])[address] [place] [address] Glucose [Mass/Vol] 253 mg/dL High 70-105 [facility] Comment on above: Order Comment: Waive d Testing in the ED is performed under the ED CLIA certificate #[id number]. Result Comment: kste [email or web address] Performed By: #### L [id number] ####[facility] ([facility]ER)[address] [place] [address] Glucose [Mass/Vol] 279 mg/dL High 70-105 [facility] Comment on above: Order Comment: Waive d Testing in the ED is performed under the ED CLIA certificate #[id number]. Result Comment: than sen2 Performed By: #### L [id number] ####[facility] ([facility])[address] [place] [address] Glucose [Mass/Vol] 270 mg/dL High 70-105 [facility] Comment on above: Order Comment: Waive d Testing in the ED is performed under the ED CLIA certificate #[id number]. Result Comment: than sen2 Performed By: #### L [id number] ####[facility] ([facility])[address] [place] [address] Glucose [Mass/Vol] 267 mg/dL High 70-105 [facility] Comment on above: Order Comment: Waive d Testing in the ED is performed under the ED CLIA certificate #[id number]. Result Comment: [email or web address] Performed By: #### L [id number] ####[facility] ([facility])[address] [place] [address] POTASSIUM, WHOLE BLOODon Potassium [Moles/Vol] 4.4 mmol/L Normal 3.5-5.1 [facility] Comment on above: Performed By: #### P OTASSIUM, WHOLE BLOOD ####[facility] [id number] [place] [address] [facility] SODIUM, WHOLE BLOODon 2022 SODIUM, WHOLE BLOOD 141 Normal 136-145 [facility] Comment on above: Performed By: #### S ODIUM, WHOLE BLOOD ####[facility] [id number] [place] [address] [place] TROPONIN Ion 04-24-2023 Troponin I.cardiac [Mass/Vol] 34.92 ng/mL Critically high 0.00-0.04 [facility] Comment on above: Result Comment: Prev ious result verified on 04/23/2023 2259 on specimen/case [id number] called with component Troponin I for procedure Troponin I with value 22.65 ng/mL. Performed By: #### L [id number] ####[facility] ([facility])[address] [place] [address] 30on 04-23-2023 30 Normal [facility] 30 Normal [facility] AMYLASEon 04-23-2023 Amylase [Catalytic activity/Vol] 86 U/L Normal 29-103 [facility] Comment on above: Performed By: #### L [id number] ####[facility] ([facility])[address] [place] [address] APTTon 04-23-2023 ACTIVATED PARTIAL THROMBOPLASTIN TIME IN PPP BY COAGULATION ASSAY 45.1 Seconds High 25.0-35.0 [facility] Comment on above: Result Comment: Clin ical significance of the APTT is questionable in the presence of heparin. Performed By: #### L [id number] ####[facility] ([facility])[address] [place] [address] ACTIVATED PARTIAL THROMBOPLASTIN TIME IN PPP BY COAGULATION ASSAY 49.0 Seconds High 25.0-35.0 [facility] Comment on above: Result Comment: Clin ical significance of the APTT is questionable in the presence of heparin. Performed By: #### L [id number] ####[facility] ([facility])[address] [place] [address] ARTERIAL BLOOD GAS WITH IONI ZED CALCIUMon 04-23-2023 Base excess Calc (Bld) [Moles/Vol] -16.99295 mmol/L Low -2.0-3.0 [facility] Comment on above: Performed By: #### L [id number] ####[facility] [id number] [place] [address] [place] CALCIUM IONIZED (MMOL/L) IN BLOOD 1.15 mmol/L Normal 1.15-1.33 [facility] Comment on above: Performed By: #### L [id number] ####[facility] [id number] [place] [address] [place] CO2 (Bld) [Partial pressure] 20 mm[Hg] Invalid Interpretation Code 35-48 [facility] Comment on above: Performed By: #### L [id number] ####[facility] [id number] [place], [place] [address] HCO3 (Bld) [Moles/Vol] 8.8 mmol/L Low 21.0-28.0 [facility] Comment on above: Performed By: #### L [id number] ####[facility] [id number] [place] [address] [facility] LPM 2 Normal [facility] Comment on above: Performed By: #### L [id number] ####[facility] [id number] [place], [place] [address] Oxygen (Bld) [Partial pressure] 67 mm[Hg] Low 83-100 [facility] Comment on above: Performed By: #### L [id number] ####[facility] [id number] [place], [place] [address] OXYGEN SATURATION (%) IN ARTERIAL BLOOD 93.6 % Low 94.0-98.0 [facility] Comment on above: Performed By: #### L [id number] ####[facility] [id number] pH (Bld) 7.25 [pH] Low 7.35-7.45 [facility] Comment on above: Performed By: #### L [id number] ####[facility] [id number] [address] SOURCE OF OXYGEN Nasal cannula Normal [facility] Comment on above: Performed By: #### L [id number] ####[facility] [id number] [place] [address] [facility] Base excess Calc (Bld) [Moles/Vol] -15.71168 mmol/L Low -2.0-3.0 [facility] Comment on above: Order Comment: On ar rival to CVU Performed By: #### L [id number] ####[facility] RESPIRAT[facility] [id number] [place], [place] [address] CALCIUM IONIZED (MMOL/L) IN BLOOD 1.16 mmol/L Normal 1.15-1.33 [facility] Comment on above: Order Comment: On ar rival to CVU Performed By: #### L [id number] ####[facility] [id number] [place] [address] [facility] CO2 (Bld) [Partial pressure] 21 mm[Hg] Invalid Interpretation Code 35-48 [facility] Comment on above: Order Comment: On ar rival to CVU Performed By: #### L [id number] ####[facility] RESPIRAT[facility] [id number] [place] [address] [facility] HCO3 (Bld) [Moles/Vol] 9.6 mmol/L Low 21.0-28.0 [facility] Comment on above: Order Comment: On ar rival to CVU Performed By: #### L [id number] ####[facility] RESPIRAT[facility] [id number] [place] [address] [facility] Oxygen (Bld) [Partial pressure] 63 mm[Hg] Low 83-100 [facility] Comment on above: Order Comment: On ar rival to CVU Performed By: #### L [id number] ####[facility] RESPIRATORY [id number] [place] [address] [facility] OXYGEN SATURATION (%) IN ARTERIAL BLOOD 92.2 % Low 94.0-98.0 [facility] Comment on above: Order Comment: On ar rival to CVU Performed By: #### L [id number] ####[facility] RESPIR[facility] [id number] [place] [address] [facility] pH (Bld) 7.27 [pH] Low 7.35-7.45 [facility] Comment on above: Order Comment: On ar rival to CVU Performed By: #### L [id number] ####[facility] RESPIRATORY [id number] [place] [address] [facility] SOURCE OF OXYGEN Nasal cannula Normal [facility] Comment on above: Order Comment: On ar rival to CVU Performed By: #### L [id number] ####[facility] RESPIRATORY [id number] [facility] [place] [address] [facility] Anesthesiaon 04-23-2023 Anesthesia [id number] Gui Ortiz 1955 M Date Provider Department Center 04/23/2023 KAUSHAL FINLEY [facility] SICU None Family History Family history unknown: Yes Normal [facility] BASIC METABOLIC PANELon 11-0 Anion gap [Moles/Vol] 10 mmol/L Normal 7-20 [facility] Comment on above: Performed By: #### L [id number] ####[facility] ([facility])[address] [facility] [address] Calcium [Mass/Vol] 8.4 mg/dL Low 8.6-10.3 [facility] Comment on above: Performed By: #### L [id number] ####[facility] ([facility])[address] [place] [address] Chloride [Moles/Vol] 114 mmol/L High 98-107 [facility] Comment on above: Performed By: #### L [id number] ####[facility] ([facility])[address] [place] [address] CO2 [Moles/Vol] 25 mmol/L Normal 21-31 [facility] Comment on above: Performed By: #### L [id number] ####[facility] ([facility])[address] [place] [address] Creatinine [Mass/Vol] 0.86 mg/dL Normal 0.70-1.30 [facility] Comment on above: Performed By: #### L [id number] ####[facility] ([facility])[address] [facility] [place] [address] GLOMERULAR FILTRATION RATE ML/MIN/1.73 SQ M.PREDICTED 93.7 mL/min/1.73m*2 Normal >60.0 [facility] Comment on above: Result Comment: The [facility]???s estimated glomerular filtration rate (eGFR) will no [...] of individuals. Performed By: #### L [id number] ####[facility] ([facility])[address] [place] [address] Glucose [Mass/Vol] 86 mg/dL Normal 70-100 [facility] Comment on above: Performed By: #### L [id number] ####[facility] ([facility])[address] [place] [address] Potassium [Moles/Vol] 3.9 mmol/L Normal 3.5-5.1 [facility] Comment on above: Performed By: #### L [id number] ####[facility] ([facility])[address] [place] [address] Sodium [Moles/Vol] 145 mmol/L Normal 136-145 [facility] Comment on above: Performed By: #### L [id number] ####[facility] ([facility])[address] [place] [address] Urea nitrogen [Mass/Vol] 19 mg/dL Normal 7-25 [facility] Comment on above: Performed By: #### L [id number] ####[facility] ([facility])[address] [place] [address] UREA NITROGEN/CREATININ E (MASS RATIO) IN SER/PLAS 22.1 Normal [facility] Comment on above: Performed By: #### L [id number] ####[facility] ([facility])[address] [place] [address] CALCIUM, IONIZEDon 3 CALCIUM IONIZED (MMOL/L) IN BLOOD 1.21 mmol/L Normal 1.15-1.33 [facility] Comment on above: Performed By: #### C ALCIUM, IONIZED ####[facility] RESPIRATORY [id number] [place] [address] [place] CALCIUM IONIZED (MMOL/L) IN BLOOD 1.19 mmol/L Normal 1.15-1.33 [facility] Comment on above: Performed By: #### C ALCIUM, IONIZED ####[facility] RESPIRATORY [id number] [place] [address] [facility] CALCIUM IONIZED (MMOL/L) IN BLOOD 1.07 mmol/L Low 1.15-1.33 [facility] Comment on above: Performed By: #### C ALCIUM, IONIZED ####[facility] RESPIRATORY [id number] [place] [address] [facility] CBCon 04-23-2023 Erythrocyte distribution width (RBC) [Ratio] 13.3 % Normal 11.5-15.0 [facility] Comment on above: Performed By: #### L [id number] ####[facility] ([facility])[address] [place] [address] ERYTHROCYTE MEAN CORPUSCULAR HEMOGLOBIN CONCENTRATION (G/DL) BY AUTOMATED 34.2 g/dL Normal 32.0-35.0 [facility] Comment on above: Performed By: #### L [id number] ####[facility] ([facility])[address] [place] [address] Hematocrit (Bld) [Volume fraction] 22.5 % Low 39.0-55.0 [facility] Comment on above: Performed By: #### L [id number] ####[facility] ([facility])[address] [place] [address] Hemoglobin (Bld) [Mass/Vol] 7.7 g/dL Low 13.0-17.0 [facility] Comment on above: Result Comment: Resu lts checked Performed By: #### L [id number] ####[facility] ([facility])[address] [place] [address] IMMATURE PLATELET FRACTION % 2.5 % Normal 0.8-6.3 [facility] Comment on above: Performed By: #### L [id number] ####[facility] ([facility])[address] [place] [address] MCH (RBC) [Entitic mass] 31.3 pg Normal 27.0-33.0 [facility] Comment on above: Performed By: #### L [id number] ####[facility] ([facility])[address] [place] [address] MCV (RBC) [Entitic vol] 91.5 fL Normal 82.0-98.0 [facility] Comment on above: Performed By: #### L [id number] ####[facility] ([facility])[address] [place] [address] PLATELETS (10*3/UL) IN BLOOD AUTOMATED COUNT 80 10*3/uL Low 150-400 [facility] Comment on above: Result Comment: Plt est 74 ok Performed By: #### L [id number] ####[facility] ([facility])[address] [place] [address] RBC (Bld) [#/Vol] 2.46 10*6/uL Low 4.20-5.70 [facility] Comment on above: Performed By: #### L [id number] ####[facility] ([facility])[place] [address] WBC (Bld) [#/Vol] 7.84 10*3/uL Normal 4.00-10.60 [facility] Comment on above: Performed By: #### L [id number] ####[facility] ([facility])[address] [place] [address] CBC WITH AUTO DIFFERENTIALon 04-23-2023 Erythrocyte distribution width (RBC) [Ratio] 14.0 % Normal 11.5-15.0 [facility] Comment on above: Performed By: #### L [id number] ####[facility] ([facility])[address] [place] [address] ERYTHROCYTE MEAN CORPUSCULAR HEMOGLOBIN CONCENTRATION (G/DL) BY AUTOMATED 33.9 g/dL Normal 32.0-35.0 [facility] Comment on above: Performed By: #### L [id number] ####[facility] ([facility])[address] [place] [address] Hematocrit (Bld) [Volume fraction] 18.0 % Low 39.0-55.0 [facility] Comment on above: Performed By: #### L [id number] ####[facility] (BEAKER)[address] [place] [address] Hemoglobin (Bld) [Mass/Vol] 6.1 g/dL Low 13.0-17.0 [facility] Comment on above: Performed By: #### L [id number] ####[facility] ([facility])[address] [place] [address] IMMATURE PLATELET FRACTION % 3.6 % Normal 0.8-6.3 [facility] Comment on above: Performed By: #### L [id number] ####[facility] ([facility])[address] [place] [address] MCH (RBC) [Entitic mass] 31.4 pg Normal 27.0-33.0 [facility] Comment on above: Performed By: #### L [id number] ####[facility] ([facility])[address] [place] [address] MCV (RBC) [Entitic vol] 92.8 fL Normal 82.0-98.0 [facility] Comment on above: Performed By: #### L [id number] ####[facility] ([facility])[address] [place] [address] NRBC (PER 100 WBCS) BY AUTOMATED COUNT 0.0 % Normal 0 [facility] Comment on above: Performed By: #### L [id number] ####[facility] ([facility])[address] [place] [address] PLATELETS (10*3/UL) IN BLOOD AUTOMATED COUNT 68 10*3/uL Low 150-400 [facility] Comment on above: Performed By: #### L [id number] ####[facility] ([facility])[address] [place] [address] RBC (Bld) [#/Vol] 1.94 10*6/uL Low 4.20-5.70 [facility] Comment on above: Performed By: #### L [id number] ####[facility] ([facility])[address] [place] [address] WBC (Bld) [#/Vol] 12.79 10*3/uL High 4.00-10.60 [facility] Comment on above: Performed By: #### L [id number] ####[facility] ([facility])[address] [place] [address] CK TOTAL AND CKMBon 04-23-20 CREATINE KINASE (U/L) IN SER/PLAS 4110.0 U/L High 30.0-223.0 [facility] Comment on above: Performed By: #### L [id number] ####[facility] ([facility])[address] [place] [address] CREATINE KINASE MB/CREATINE KINASE TOTAL BY CALCULATION 2.9 High <=1.9 [facility] Comment on above: Performed By: #### L [id number] ####[facility] ([facility])[address] [place] [address] CREATINE KINASE-MB (NG/ML) IN SER/PLAS 122.5 ng/mL High 0.0-5.0 [facility] Comment on above: Performed By: #### L [id number] ####[facility] ([facility])[address] [place] [address] CO-OXIMETRYon 04-23-2023 CARBOXYHEMOGLOBIN/ HEMOGLOBIN TOTAL % IN BLOOD 1.3 % Normal [facility] Comment on above: Performed By: #### L [id number] ####[facility] RESPIRATORY [id number] [place] [address] [place] Hemoglobin (Bld) [Mass/Vol] 7.8 g/dL Normal [facility] Comment on above: Performed By: #### L [id number] ####[facility] RESPIRATORY [id number] [place] [address] [place] METHEMOGLOBIN/100 IN BLOOD 1.0 % Normal 0.0-1.5 [facility] Comment on above: Performed By: #### L [id number] ####[facility] RESPIRATORY [id number] [place] [address] [place] Oxygen saturation in Blood 65.8 % Normal [facility] Comment on above: Performed By: #### L [id number] ####[facility] RESPIRATORY [id number] [place] [address] [facility] OXYGENATED HEMOGLOBIN IN BLOOD 64.2 % Normal [facility] Comment on above: Performed By: #### L [id number] ####[facility] RESPIRATORY [id number] [place] [address] [facility] COMPREHENSIVE METABOLIC PANE Roddy 04-23-2023 Albumin [Mass/Vol] 3.6 g/dL Normal 3.5-5.7 [facility] Comment on above: Performed By: #### L [id number] ####[facility] ([facility]AKER)[address] [place] [address] ALP [Catalytic activity/Vol] 34 U/L Normal 34-104 [facility] Comment on above: Performed By: #### L [id number] ####[facility] ([facility]ER)[address] [place] [address] ALT [Catalytic activity/Vol] 22 U/L Normal 7-52 [facility] Comment on above: Performed By: #### L [id number] ####[facility] ([facility]ER)[address] [place] [address] Anion gap [Moles/Vol] 21 mmol/L High 7-20 [facility] Comment on above: Performed By: #### L [id number] ####[facility] ([facility]ER)[address] [place] [address] AST [Catalytic activity/Vol] 132 U/L High 13-39 [facility] Comment on above: Performed By: #### L [id number] ####[facility] ([facility]ER)[address] [place] [address] Bilirubin [Mass/Vol] 0.5 mg/dL Normal 0.3-1.0 [facility] Comment on above: Performed By: #### L [id number] ####[facility] ([facility]ER)[address] [place] [address] Calcium [Mass/Vol] 8.1 mg/dL Low 8.6-10.3 [facility] Comment on above: Performed By: #### L [id number] ####[facility] ([facility])[address] [place] [address] Chloride [Moles/Vol] 109 mmol/L High 98-107 [facility] Comment on above: Performed By: #### L [id number] ####[facility] ([facility])[address] [place] [address] CO2 [Moles/Vol] 20 mmol/L Low 21-31 [facility] Comment on above: Performed By: #### L [id number] ####[facility] ([facility])[address] [place] [address] Creatinine [Mass/Vol] 1.16 mg/dL Normal 0.70-1.30 [facility] Comment on above: Performed By: #### L [id number] ####[facility] ([facility])[address] [place] [address] GLOMERULAR FILTRATION RATE ML/MIN/1.73 SQ M.PREDICTED 68.2 mL/min/1.73m*2 Normal >60.0 [facility] Comment on above: Result Comment: The [facility]???s estimated glomerular filtration rate (eGFR) will no [...] of individuals. Performed By: #### L [id number] ####[facility] ([facility])[address] [place] [address] Glucose [Mass/Vol] 255 mg/dL High 70-100 [facility] Comment on above: Performed By: #### L [id number] ####[facility] ([facility])[address] [place] [address] Potassium [Moles/Vol] 4.4 mmol/L Normal 3.5-5.1 [facility] Comment on above: Performed By: #### L [id number] ####[facility] ([facility])[address] [place] [address] Protein [Mass/Vol] 4.7 g/dL Low 6.0-8.3 [facility] Comment on above: Performed By: #### L [id number] ####[facility] ([facility])[address] [place] [address] Sodium [Moles/Vol] 146 mmol/L High 136-145 [facility] Comment on above: Performed By: #### L [id number] ####[facility] ([facility])[address] [place] [address] Urea nitrogen [Mass/Vol] 21 mg/dL Normal 7-25 [facility] Comment on above: Performed By: #### L [id number] ####[facility] ([facility])[address] [place] [address] UREA NITROGEN/CREATININ E (MASS RATIO) IN SER/PLAS 18.1 Normal [facility] Comment on above: Performed By: #### L [id number] ####[facility] ([facility])[address] [place] [address] CONSULTon 04-23-2023 CONSULT Normal [facility] CONSULT Normal [facility] FIBRINOGENon 04-23-2023 Magnesium [Mass/Vol] 258 mg/dL Normal 150-425 [facility] Comment on above: Performed By: #### L [id number] ####[facility] ([facility])[address] [place] [address] LACTIC ACID WITH 4 HOUR REFL EXon 04-23-2023 LACTATE (MMOL/L) IN SER/PLAS 12.1 mmol/L Critically high 0.5-2.2 [facility] Comment on above: Result Comment: Prev ious result verified on 04/22/2023 2146 on specimen/case [id number] called with component Lactate for procedure Lactic acid, plasma with value 2.6 mmol/L. Performed By: #### L [id number] ####[facility] ([facility])[address] [place] [address] LACTIC ACID, PLASMAon 2022 LACTATE (MMOL/L) IN SER/PLAS 2.2 mmol/L Normal 0.5-2.2 [facility] Comment on above: Performed By: #### L [id number] ####[facility] ([facility])[address] [place] [address] LIPASEon 04-23-2023 LIPASE (U/L) IN SER/PLAS 12 U/L Normal - [facility] Comment on above: Performed By: #### L [id number] ####[facility] ([facility])[address] [place] [address] MAGNESIUMon 04-23-2023 Magnesium [Mass/Vol] 1.8 mg/dL Low 1.9-2.7 [facility] Comment on above: Performed By: #### L [id number] ####[facility] ([facility])[address] [place] [address] MANUAL DIFFERENTIALon 2022 BASOPHILS (10*3/UL) IN BLOOD BY CALCULATION 0.01 10*3/uL Normal 0.00-0.20 [facility] Comment on above: Performed By: #### L [id number] ####[facility] ([facility])[address] [place] [address] BASOPHILS/100 LEUKOCYTES IN BLOOD BY AUTOMATED COUNT 0.1 % Normal 0.0-1.0 [facility] Comment on above: Performed By: #### L [id number] ####[facility] ([facility])[address] [place] [address] EOSINOPHILS (10*3/UL) IN BLOOD BY CALCULATION 0.00 10*3/uL Normal 0.00-0.50 [facility] Comment on above: Performed By: #### L [id number] ####[facility] ([facility])[address] [place] [address] EOSINOPHILS/100 LEUKOCYTES IN BLOOD BY AUTOMATED COUNT 0.0 % Normal 0.0-6.0 [facility] Comment on above: Performed By: #### L [id number] ####[facility] ([facility])[address] [place] [address] IMMATURE GRANULOCYTES (10*3/UL) IN BLOOD BY CALCULATION 0.09 10*3/uL Normal 0.00-0.20 [facility] Comment on above: Performed By: #### L [id number] ####[facility] ([facility])[address] [place] [address] IMMATURE GRANULOCYTES/100 LEUKOCYTES IN BLOOD BY AUTOMATED COUNT 0.7 % Normal 0.0-1.0 [facility] Comment on above: Performed By: #### L [id number] ####[facility] ([facility])[address] [place] [address] LYMPHOCYTES (10*3/UL) IN BLOOD BY CALCULATION 0.72 10*3/uL Low 1.20-4.00 [facility] Comment on above: Performed By: #### L [id number] ####[facility] ([facility])[address] [place] [address] LYMPHOCYTES/100 LEUKOCYTES IN BLOOD BY AUTOMATED COUNT 5.6 % Low 20.0-45.0 [facility] Comment on above: Performed By: #### L [id number] ####[facility] ([facility])[address] [place] [address] MONOCYTES (10*3/UL) IN BLOOD BY CALCUATION 0.70 10*3/uL Normal 0.10-1.00 [facility] Comment on above: Performed By: #### L [id number] ####[facility] ([facility])[address] [place] [address] MONOCYTES/100 LEUKOCYTES IN BLOOD BY AUTOMATED COUNT 5.5 % Normal 5.0-12.0 [facility] Comment on above: Performed By: #### L [id number] ####[facility] ([facility])[address] [place] [address] NEUTROPHILS (10*3/UL) IN BLOOD BY CALCULATION 11.3 10*3/uL High 1.6-7.6 [facility] Comment on above: Performed By: #### L [id number] ####[facility] ([facility])[address] [place] [address] NEUTROPHILS/100 LEUKOCYTES IN BLOOD BY AUTOMATED COUNT 88.1 % High 40.0-72.0 [facility] Comment on above: Performed By: #### L [id number] ####[facility] ([facility])[address] [place] [address] MYOGLOBIN, SERUMon 3 MYOGLOBIN (NG/ML) IN SER/PLAS 1832 ng/mL High 0-90 [facility] Comment on above: Result Comment: A DO UBLING OF VALUES FROM SERIAL BLOOD COLLECTIONS (1 - 2 HOURS APART) IS MORE INDICATIVE OF A M.I. THAN THE ABSOLUTE VALUE. Performed By: #### L [id number] ####[facility] ([facility])[address] [place] [address] PHOSPHORUSon 04-23-2023 Magnesium [Mass/Vol] 3.1 mg/dL Normal 2.5-5.0 [facility] Comment on above: Performed By: #### L [id number] ####[facility] ([facility])[address] [place] [address] POCT GLUCOSE METER UNSOLICIT ED RESULTSon 04-23-2023 Glucose [Mass/Vol] 267 mg/dL High 70-105 [facility] Comment on above: Order Comment: Waive d Testing in the ED is performed under the ED CLIA certificate #[id number]. Result Comment: than sen2 Performed By: #### L [id number] ####[facility] ([facility])[address] [place] [address] Glucose [Mass/Vol] 138 mg/dL High 70-105 [facility] Comment on above: Order Comment: Waive d Testing in the ED is performed under the ED CLIA certificate #[id number]. Result Comment: nhay man Performed By: #### L [id number] ####[facility] ([facility])[address] [place] [address] Glucose [Mass/Vol] 92 mg/dL Normal 70-105 [facility] Comment on above: Order Comment: Waive d Testing in the ED is performed under the ED CLIA certificate #[id number]. Result Comment: nhay man Performed By: #### L [id number] ####[facility] (BEAKER)[address] [place] [address] Glucose [Mass/Vol] 101 mg/dL Normal 70-105 [facility] Comment on above: Order Comment: Waive d Testing in the ED is performed under the ED CLIA certificate #[id number]. Result Comment: vsan der3 Performed By: #### L [id number] ####[facility] (BE[facility]ER)[address] [place] [address] Glucose [Mass/Vol] 91 mg/dL Normal 70-105 [facility] Comment on above: Order Comment: Waive d Testing in the ED is performed under the ED CLIA certificate #[id number]. Result Comment: vsan der3 Performed By: #### L [id number] ####[facility] ([facility]ER)[address] [place] [address] Glucose [Mass/Vol] 114 mg/dL High 70-105 [facility] Comment on above: Order Comment: Waive d Testing in the ED is performed under the ED CLIA certificate #[id number]. Result Comment: vsan der3 Performed By: #### L [id number] ####[facility] ([facility])[address] [place] [address] Glucose [Mass/Vol] 123 mg/dL High 70-105 [facility] Comment on above: Order Comment: Waive d Testing in the ED is performed under the ED CLIA certificate #[id number]. Result Comment: [email or web address] Performed By: #### L [id number] ####[facility] (BEAKER)[address] [place] [address] Glucose [Mass/Vol] 142 mg/dL High 70-105 [facility] Comment on above: Order Comment: Waive d Testing in the ED is performed under the ED CLIA certificate #[id number]. Result Comment: [email or web address] Performed By: #### L [id number] ####[facility] (BEAKER)[address] [facility] [place] [address] Glucose [Mass/Vol] 152 mg/dL High 70-105 [facility] Comment on above: Order Comment: Waive d Testing in the ED is performed under the ED CLIA certificate #[id number]. Result Comment: [email or web address] Performed By: #### L [id number] ####[facility] (BEAKER)[address] [facility] [place] [address] Glucose [Mass/Vol] 167 mg/dL High 70-105 [facility] Comment on above: Order Comment: Waive d Testing in the ED is performed under the ED CLIA certificate #[id number]. Result Comment: [email or web address] Performed By: #### L [id number] ####[facility] (BEAKER)[address] [facility] [place] [address] POTASSIUM, WHOLE BLOODon Potassium [Moles/Vol] 4.3 mmol/L Normal 3.5-5.1 [facility] Comment on above: Performed By: #### P OTASSIUM, WHOLE BLOOD ####[facility] [id number] [place] [address] [facility] Potassium [Moles/Vol] 4.1 mmol/L Normal 3.5-5.1 [facility] Comment on above: Performed By: #### P OTASSIUM, WHOLE BLOOD ####[facility] [id number] [place] [address] [place] Potassium [Moles/Vol] 4.3 mmol/L Normal 3.5-5.1 [facility] Comment on above: Performed By: #### P OTASSIUM, WHOLE BLOOD ####[facility] [id number] [place] [address] [place] PROTIME-INRon 04-23-2023 INR IN PPP BY COAGULATION ASSAY 1.98 High 0.90-1.10 [facility] Comment on above: Result Comment: [facility] P RECOMMENDED INR FOR WARFARIN THERAPY CONDITION INRPROPHYLAXIS OF VENOUS THROMBOSIS 2-3(HIGH-RISK SURGERY)TREATMENT OF VENOUS THROMBOSIS 2-3TREATMENT OF PULMONARY EMBOLISM 2-3PREVENTION OF SYSTEMIC EMBOLISM: 2-3 ACUTE MYOCARDIAL INFARCTION TISSUE HEART VALVES VALVULAR HEART DISEASE ATRIAL FIBRILLATION RECURRENT SYSTEMIC EMBOLISMMECHANICAL HEART VALVE 2.5-3.5 FROM: ORAL ANTICOAGULANTS. MECHANISM OF ACTION, CLINICAL EFFECTIVENESS, AND OPTIMAL THERAPEUTIC RANGE. CHEST 1995;108:231S-246S. Performed By: #### L [id number] ####[facility] (BEAKER)[address] [place] [address] PROTHROMBIN TIME (PT) IN PPP BY COAGULATION ASSAY 22.6 Seconds High 12.3-14.8 [facility] Comment on above: Performed By: #### L [id number] ####[facility] (BEAKER)[address] [facility] [place] [address] INR IN PPP BY COAGULATION ASSAY 1.47 High 0.90-1.10 [facility] Comment on above: Result Comment: [facility] P RECOMMENDED INR FOR WARFARIN THERAPY CONDITION INRPROPHYLAXIS OF VENOUS THROMBOSIS 2-3(HIGH-RISK SURGERY)TREATMENT OF VENOUS THROMBOSIS 2-3TREATMENT OF PULMONARY EMBOLISM 2-3PREVENTION OF SYSTEMIC EMBOLISM: 2-3 ACUTE MYOCARDIAL INFARCTION TISSUE HEART VALVES VALVULAR HEART DISEASE ATRIAL FIBRILLATION RECURRENT SYSTEMIC EMBOLISMMECHANICAL HEART VALVE 2.5-3.5 FROM: ORAL ANTICOAGULANTS. MECHANISM OF ACTION, CLINICAL EFFECTIVENESS, AND OPTIMAL THERAPEUTIC RANGE. CHEST 1995;108:231S-246S. Performed By: #### L [id number] ####[facility] ([employer])[address] [place] [address] PROTHROMBIN TIME (PT) IN PPP BY COAGULATION ASSAY 17.9 Seconds High 12.3-14.8 [facility] Comment on above: Performed By: #### L [id number] ####[facility] ([employer])[address] [place] [address] SODIUM, WHOLE BLOODon 2022 SODIUM, WHOLE BLOOD 141 Normal 136-145 [facility] Comment on above: Performed By: #### S ODIUM, WHOLE BLOOD ####[facility] [id number] [facility] [place] [address] [place] SODIUM, WHOLE BLOOD 143 Normal 136-145 [facility] Comment on above: Performed By: #### S ODIUM, WHOLE BLOOD ####[facility] [id number] [facility] [place] [address] [place] SODIUM, WHOLE BLOOD 144 Normal 136-145 [facility] Comment on above: Performed By: #### S ODIUM, WHOLE BLOOD ####[facility] [id number] [facility] [place] [address] [place] TROPONIN Ion 04-23-2023 Troponin I.cardiac [Mass/Vol] 22.65 ng/mL Critically high 0.00-0.04 [facility] Comment on above: Result Comment: JYOTI CORONADO INITIAL CRITICAL HIGH; RESPUN AND RETESTED Performed By: #### L [id number] ####[facility] (BEAKER)[address] [place] [address] ANESon 11-06-2023 ANES Normal [facility] APTTon 04-22-2023 ACTIVATED PARTIAL THROMBOPLASTIN TIME IN PPP BY COAGULATION ASSAY 43.4 Seconds High 25.0-35.0 [facility] Comment on above: Result Comment: Clin ical significance of the APTT is questionable in the presence of heparin. Performed By: #### L [id number] ####[facility] ([facility])[address] [facility] [place] [address] ACTIVATED PARTIAL THROMBOPLASTIN TIME IN PPP BY COAGULATION ASSAY 36.9 Seconds High 25.0-35.0 [facility] Comment on above: Result Comment: Clin ical significance of the APTT is questionable in the presence of heparin. Performed By: #### L [id number] ####[facility] ([facility])[address] [facility] [place] [address] ACTIVATED PARTIAL THROMBOPLASTIN TIME IN PPP BY COAGULATION ASSAY 40.3 Seconds High 25.0-35.0 [facility] Comment on above: Order Comment: Pre-o p diagnosis:NSTEMI (non-ST elevated myocardial infarction) (CMS/HCC) [I21.4]Acute non-ST segment elevation myocardial infarction (CMS/HCC) [I21.4]Coronary artery disease, unspecified vessel or lesion type, unspecified whether angina present, unspecified whether [place] or 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] Result Comment: Clin ical significance of the APTT is questionable in the presence of heparin. Performed By: #### L [id number] ####[facility] ([facility])[address] [facility] [place] [address] BASIC METABOLIC PANELon 11-0 Anion gap [Moles/Vol] 9 mmol/L Normal 7-20 [facility] Comment on above: Performed By: #### L [id number] ####[facility] ([facility])[address] [facility] [place] [address] Calcium [Mass/Vol] 7.9 mg/dL Low 8.6-10.3 [facility] Comment on above: Performed By: #### L [id number] ####[facility] ([facility])[address] [facility] [place] [address] Chloride [Moles/Vol] 114 mmol/L High 98-107 [facility] Comment on above: Performed By: #### L [id number] ####[facility] ([facility])[address] [place] [address] CO2 [Moles/Vol] 25 mmol/L Normal 21-31 [facility] Comment on above: Performed By: #### L [id number] ####[facility] ([facility])[address] [place] [address] Creatinine [Mass/Vol] 0.86 mg/dL Normal 0.70-1.30 [facility] Comment on above: Performed By: #### L [id number] ####[facility] ([facility])[address] [place] [address] GLOMERULAR FILTRATION RATE ML/MIN/1.73 SQ M.PREDICTED 93.7 mL/min/1.73m*2 Normal >60.0 [facility] Comment on above: Result Comment: The [facility]???s estimated glomerular filtration rate (eGFR) will no [...] of individuals. Performed By: #### L [id number] ####[facility] (BEAKER)[address] [place] [address] Glucose [Mass/Vol] 162 mg/dL High 70-100 [facility] Comment on above: Performed By: #### L [id number] ####[facility] (BEAKER)[address] [place] [address] Potassium [Moles/Vol] 4.2 mmol/L Normal 3.5-5.1 [facility] Comment on above: Performed By: #### L [id number] ####[facility] (BEAKER)[address] [place] [address] Sodium [Moles/Vol] 144 mmol/L Normal 136-145 [facility] Comment on above: Performed By: #### L [id number] ####[facility] (BEAKER)[address] [place] [address] Urea nitrogen [Mass/Vol] 19 mg/dL Normal 7-25 [facility] Comment on above: Performed By: #### L [id number] ####[facility] (BEAKER)[address] [place] [address] UREA NITROGEN/CREATININ E (MASS RATIO) IN SER/PLAS 22.1 Normal [facility] Comment on above: Performed By: #### L [id number] ####[facility] (BEAKER)[address] [place] [address] Anion gap [Moles/Vol] 7 mmol/L Normal 7-20 [facility] Comment on above: Performed By: #### L [id number] ####[facility] (BEAKER)[address] [place] [address] Calcium [Mass/Vol] 8.2 mg/dL Low 8.6-10.3 [facility] Comment on above: Performed By: #### L [id number] ####[facility] (BEAKER)[address] [place] [address] Chloride [Moles/Vol] 114 mmol/L High 98-107 [facility] Comment on above: Performed By: #### L [id number] ####[facility] (BEAKER)[address] [place] [address] CO2 [Moles/Vol] 29 mmol/L Normal 21-31 [facility] Comment on above: Performed By: #### L [id number] ####[facility] (BEAKER)[address] [place] [address] Creatinine [Mass/Vol] 0.77 mg/dL Normal 0.70-1.30 [facility] Comment on above: Performed By: #### L [id number] ####[facility] (BEAKER)[address] [place] [address] GLOMERULAR FILTRATION RATE ML/MIN/1.73 SQ M.PREDICTED 96.9 mL/min/1.73m*2 Normal >60.0 [facility] Comment on above: Result Comment: The [facility]???s estimated glomerular filtration rate (eGFR) will no [...] of individuals. Performed By: #### L [id number] ####[facility] ([facility])[address] [place] [address] Glucose [Mass/Vol] 142 mg/dL High 70-100 [facility] Comment on above: Performed By: #### L [id number] ####[facility] ([facility])[address] [place] [address] Potassium [Moles/Vol] 3.7 mmol/L Normal 3.5-5.1 [facility] Comment on above: Performed By: #### L [id number] ####[facility] ([facility])[address] [place] [address] Sodium [Moles/Vol] 146 mmol/L High 136-145 [facility] Comment on above: Performed By: #### L [id number] ####[facility] ([facility])[address] [place] [address] Urea nitrogen [Mass/Vol] 18 mg/dL Normal 7-25 [facility] Comment on above: Performed By: #### L [id number] ####[facility] ([facility])[address] [place] [address] UREA NITROGEN/CREATININ E (MASS RATIO) IN SER/PLAS 23.4 Normal [facility] Comment on above: Performed By: #### L [id number] ####[facility] (BEAKER)[address] [place] [address] Anion gap [Moles/Vol] 7 mmol/L Normal 7-20 [facility] Comment on above: Order Comment: Pre-o p diagnosis:NSTEMI (non-ST elevated myocardial infarction) (CMS/HCC) [I21.4]Acute non-ST segment elevation myocardial infarction (CMS/HCC) [I21.4]Coronary artery disease, unspecified vessel or lesion type, unspecified whether angina present, unspecified whether [place] or 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] Performed By: #### L [id number] ####[facility] (BEAKER)[address] [place] [address] Calcium [Mass/Vol] 8.5 mg/dL Low 8.6-10.3 [facility] Comment on above: Order Comment: Pre-o p diagnosis:NSTEMI (non-ST elevated myocardial infarction) (CMS/HCC) [I21.4]Acute non-ST segment elevation myocardial infarction (CMS/HCC) [I21.4]Coronary artery disease, unspecified vessel or lesion type, unspecified whether angina present, unspecified whether [place] or 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] Performed By: #### L [id number] ####[facility] (BEAKER)[address] [place] [address] Chloride [Moles/Vol] 116 mmol/L High 98-107 [facility] Comment on above: Order Comment: Pre-o p diagnosis:NSTEMI (non-ST elevated myocardial infarction) (CMS/HCC) [I21.4]Acute non-ST segment elevation myocardial infarction (CMS/HCC) [I21.4]Coronary artery disease, unspecified vessel or lesion type, unspecified whether angina present, unspecified whether [place] or 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] Performed By: #### L [id number] ####[facility] (BEAKER)[address] [place] [address] CO2 [Moles/Vol] 25 mmol/L Normal 21-31 [facility] Comment on above: Order Comment: Pre-o p diagnosis:NSTEMI (non-ST elevated myocardial infarction) (CMS/HCC) [I21.4]Acute non-ST segment elevation myocardial infarction (CMS/HCC) [I21.4]Coronary artery disease, unspecified vessel or lesion type, unspecified whether angina present, unspecified whether [place] or 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] Performed By: #### L [id number] ####[facility] (BEAKER)[address] [place] [address] Creatinine [Mass/Vol] 0.82 mg/dL Normal 0.70-1.30 [facility] Comment on above: Order Comment: Pre-o p diagnosis:NSTEMI (non-ST elevated myocardial infarction) (CMS/HCC) [I21.4]Acute non-ST segment elevation myocardial infarction (CMS/HCC) [I21.4]Coronary artery disease, unspecified vessel or lesion type, unspecified whether angina present, unspecified whether [place] or 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] Performed By: #### L [id number] ####[facility] (BEAKER)[address] [place] [address] GLOMERULAR FILTRATION RATE ML/MIN/1.73 SQ M.PREDICTED 95.1 mL/min/1.73m*2 Normal >60.0 [facility] Comment on above: Order Comment: Pre-o p diagnosis:NSTEMI (non-ST elevated myocardial infarction) (CMS/HCC) [I21.4]Acute non-ST segment elevation myocardial infarction (CMS/HCC) [I21.4]Coronary artery disease, unspecified vessel or lesion type, unspecified whether angina present, unspecified whether [place] or 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] Result Comment: The [facility]???s estimated glomerular filtration rate (eGFR) will no [...] of individuals. Performed By: #### L [id number] ####[facility] (BEAKER)[address] [place] [address] Glucose [Mass/Vol] 198 mg/dL High 70-100 [facility] Comment on above: Order Comment: Pre-o p diagnosis:NSTEMI (non-ST elevated myocardial infarction) (CMS/HCC) [I21.4]Acute non-ST segment elevation myocardial infarction (CMS/HCC) [I21.4]Coronary artery disease, unspecified vessel or lesion type, unspecified whether angina present, unspecified whether [place] or 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] Performed By: #### L [id number] ####[facility] ([employer])[address] [place] [address] Potassium [Moles/Vol] 3.1 mmol/L Low 3.5-5.1 [facility] Comment on above: Order Comment: Pre-o p diagnosis:NSTEMI (non-ST elevated myocardial infarction) (CMS/HCC) [I21.4]Acute non-ST segment elevation myocardial infarction (CMS/HCC) [I21.4]Coronary artery disease, unspecified vessel or lesion type, unspecified whether angina present, unspecified whether [place] or 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] Performed By: #### L [id number] ####[facility] ([employer])[address] [place] [address] Sodium [Moles/Vol] 145 mmol/L Normal 136-145 [facility] Comment on above: Order Comment: Pre-o p diagnosis:NSTEMI (non-ST elevated myocardial infarction) (CMS/HCC) [I21.4]Acute non-ST segment elevation myocardial infarction (CMS/HCC) [I21.4]Coronary artery disease, unspecified vessel or lesion type, unspecified whether angina present, unspecified whether [place] or 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] Performed By: #### L [id number] ####[facility] ([employer])[address] [place] [address] Urea nitrogen [Mass/Vol] 18 mg/dL Normal 7-25 [facility] Comment on above: Order Comment: Pre-o p diagnosis:NSTEMI (non-ST elevated myocardial infarction) (CMS/HCC) [I21.4]Acute non-ST segment elevation myocardial infarction (CMS/HCC) [I21.4]Coronary artery disease, unspecified vessel or lesion type, unspecified whether angina present, unspecified whether [place] or 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] Performed By: #### L [id number] ####[facility] ([employer])[address] [place] [address] UREA NITROGEN/CREATININ E (MASS RATIO) IN SER/PLAS 22.0 Normal [facility] Comment on above: Order Comment: Pre-o p diagnosis:NSTEMI (non-ST elevated myocardial infarction) (CMS/HCC) [I21.4]Acute non-ST segment elevation myocardial infarction (CMS/HCC) [I21.4]Coronary artery disease, unspecified vessel or lesion type, unspecified whether angina present, unspecified whether [place] or 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] Performed By: #### L [id number] ####[facility] ([employer])[address] [place] [address] CBCon 04-22-2023 Erythrocyte distribution width (RBC) [Ratio] 13.1 % Normal 11.5-15.0 [facility] Comment on above: Performed By: #### L [id number] ####[facility] ([employer])[address] [place] [address] ERYTHROCYTE MEAN CORPUSCULAR HEMOGLOBIN CONCENTRATION (G/DL) BY AUTOMATED 34.7 g/dL Normal 32.0-35.0 [facility] Comment on above: Performed By: #### L [id number] ####[facility] ([employer])[address] [place] [address] Hematocrit (Bld) [Volume fraction] 32.6 % Low 39.0-55.0 [facility] Comment on above: Performed By: #### L [id number] ####[facility] (BEAKER)[address] [place] [address] Hemoglobin (Bld) [Mass/Vol] 11.3 g/dL Low 13.0-17.0 [facility] Comment on above: Performed By: #### L [id number] ####[facility] (BEAKER)[address] [place] [address] MCH (RBC) [Entitic mass] 31.1 pg Normal 27.0-33.0 [facility] Comment on above: Performed By: #### L [id number] ####[facility] (BEAKER)[address] [place] [address] MCV (RBC) [Entitic vol] 89.8 fL Normal 82.0-98.0 [facility] Comment on above: Performed By: #### L [id number] ####[facility] (BEAKER)[address] [place] [address] PLATELETS (10*3/UL) IN BLOOD AUTOMATED COUNT 107 10*3/uL Low 150-400 [facility] Comment on above: Performed By: #### L [id number] ####[facility] ([facility])[address] [place] [address] RBC (Bld) [#/Vol] 3.63 10*6/uL Low 4.20-5.70 [facility] Comment on above: Performed By: #### L [id number] ####[facility] ([facility])[address] [place] [address] WBC (Bld) [#/Vol] 18.54 10*3/uL High 4.00-10.60 [facility] Comment on above: Performed By: #### L [id number] ####[facility] ([facility])[address] [place] [address] Erythrocyte distribution width (RBC) [Ratio] 13.0 % Normal 11.5-15.0 [facility] Comment on above: Order Comment: Pre-o p diagnosis:NSTEMI (non-ST elevated myocardial infarction) (CMS/HCC) [I21.4]Acute non-ST segment elevation myocardial infarction (CMS/HCC) [I21.4]Coronary artery disease, unspecified vessel or lesion type, unspecified whether angina present, unspecified whether [place] or 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] Performed By: #### L [id number] ####[facility] (BEAKER)[address] [place] [address] ERYTHROCYTE MEAN CORPUSCULAR HEMOGLOBIN CONCENTRATION (G/DL) BY AUTOMATED 34.5 g/dL Normal 32.0-35.0 [facility] Comment on above: Order Comment: Pre-o p diagnosis:NSTEMI (non-ST elevated myocardial infarction) (CMS/HCC) [I21.4]Acute non-ST segment elevation myocardial infarction (CMS/HCC) [I21.4]Coronary artery disease, unspecified vessel or lesion type, unspecified whether angina present, unspecified whether [place] or 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] Performed By: #### L [id number] ####[facility] ([employer])[address] [place] [address] Hematocrit (Bld) [Volume fraction] 26.7 % Low 39.0-55.0 [facility] Comment on above: Order Comment: Pre-o p diagnosis:NSTEMI (non-ST elevated myocardial infarction) (CMS/HCC) [I21.4]Acute non-ST segment elevation myocardial infarction (CMS/HCC) [I21.4]Coronary artery disease, unspecified vessel or lesion type, unspecified whether angina present, unspecified whether [place] or 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] Performed By: #### L [id number] ####[facility] (BEAKER)[address] [place] [address] Hemoglobin (Bld) [Mass/Vol] 9.2 g/dL Low 13.0-17.0 [facility] Comment on above: Order Comment: Pre-o p diagnosis:NSTEMI (non-ST elevated myocardial infarction) (CMS/HCC) [I21.4]Acute non-ST segment elevation myocardial infarction (CMS/HCC) [I21.4]Coronary artery disease, unspecified vessel or lesion type, unspecified whether angina present, unspecified whether [place] or 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] Performed By: #### L [id number] ####[facility] (BEAKER)[address] [place] [address] MCH (RBC) [Entitic mass] 31.4 pg Normal 27.0-33.0 [facility] Comment on above: Order Comment: Pre-o p diagnosis:NSTEMI (non-ST elevated myocardial infarction) (CMS/HCC) [I21.4]Acute non-ST segment elevation myocardial infarction (CMS/HCC) [I21.4]Coronary artery disease, unspecified vessel or lesion type, unspecified whether angina present, unspecified whether [place] or 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] Performed By: #### L [id number] ####[facility] (BEAKER)[address] [place] [address] MCV (RBC) [Entitic vol] 91.1 fL Normal 82.0-98.0 [facility] Comment on above: Order Comment: Pre-o p diagnosis:NSTEMI (non-ST elevated myocardial infarction) (CMS/HCC) [I21.4]Acute non-ST segment elevation myocardial infarction (CMS/HCC) [I21.4]Coronary artery disease, unspecified vessel or lesion type, unspecified whether angina present, unspecified whether [place] or 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] Performed By: #### L [id number] ####[facility] (BEAKER)[address] [place] [address] PLATELETS (10*3/UL) IN BLOOD AUTOMATED COUNT 134 10*3/uL Low 150-400 [facility] Comment on above: Order Comment: Pre-o p diagnosis:NSTEMI (non-ST elevated myocardial infarction) (CMS/HCC) [I21.4]Acute non-ST segment elevation myocardial infarction (CMS/HCC) [I21.4]Coronary artery disease, unspecified vessel or lesion type, unspecified whether angina present, unspecified whether [place] or 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] Performed By: #### L [id number] ####[facility] (BEAKER)[address] [place] [address] RBC (Bld) [#/Vol] 2.93 10*6/uL Low 4.20-5.70 [facility] Comment on above: Order Comment: Pre-o p diagnosis:NSTEMI (non-ST elevated myocardial infarction) (CMS/HCC) [I21.4]Acute non-ST segment elevation myocardial infarction (CMS/HCC) [I21.4]Coronary artery disease, unspecified vessel or lesion type, unspecified whether angina present, unspecified whether [place] or 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] Performed By: #### L [id number] ####[facility] ([employer])[address] [place] [address] WBC (Bld) [#/Vol] 21.16 10*3/uL High 4.00-10.60 [facility] Comment on above: Order Comment: Pre-o p diagnosis:NSTEMI (non-ST elevated myocardial infarction) ([facility]) [I21.4]Acute non-ST segment elevation myocardial infarction ([facility]) [I21.4]Coronary artery disease, unspecified vessel or lesion type, unspecified whether angina present, unspecified whether [place] or 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] Performed By: #### L [id number] ####[facility] ([employer]geniq)[address] [place] [address] CBC WITH AUTO DIFFERENTIALon 04-22-2023 Basophils (Bld) [#/Vol] 0.01 10*3/uL Normal 0.00-0.20 [facility] Comment on above: Performed By: #### L [id number] ####[facility] ([employer])[address] [place] [address] Basophils/100 WBC (Bld) 0.1 % Normal 0.0-1.0 [facility] Comment on above: Performed By: #### L [id number] ####[facility] (BEProgeniq)[address] [place] [address] Eosinophils (Bld) [#/Vol] 0.00 10*3/uL Normal 0.00-0.50 [facility] Comment on above: Performed By: #### L [id number] ####[facility] (BEAKER)[address] [place] [address] Eosinophils/100 WBC (Bld) 0.0 % Normal 0.0-6.0 [facility] Comment on above: Performed By: #### L [id number] ####[facility] (BEAKER)[address] [place] [address] Erythrocyte distribution width (RBC) [Ratio] 13.2 % Normal 11.5-15.0 [facility] Comment on above: Performed By: #### L [id number] ####[facility] (BEAKER)[address] [place] [address] ERYTHROCYTE MEAN CORPUSCULAR HEMOGLOBIN CONCENTRATION (G/DL) BY AUTOMATED 35.6 g/dL High 32.0-35.0 [facility] Comment on above: Performed By: #### L [id number] ####[facility] ([facility])[address] [place] [address] Hematocrit (Bld) [Volume fraction] 28.4 % Low 39.0-55.0 [facility] Comment on above: Performed By: #### L [id number] ####[facility] ([facility])[address] [place] [address] Hemoglobin (Bld) [Mass/Vol] 10.1 g/dL Low 13.0-17.0 [facility] Comment on above: Performed By: #### L [id number] ####[facility] ([facility])[address] [place] [address] Immature granulocytes (Bld) [#/Vol] 0.10 10*3/uL Normal 0.00-0.20 [facility] Comment on above: Performed By: #### L [id number] ####[facility] (BEAKER)[address] [place] [address] Immature granulocytes/100 WBC (Bld) 0.7 % Normal 0.0-1.0 [facility] Comment on above: Performed By: #### L [id number] ####[facility] (BEAKER)[address] [place] [address] IMMATURE PLATELET FRACTION % 2.3 % Normal 0.8-6.3 [facility] Comment on above: Performed By: #### L [id number] ####[facility] (BEAKER)[address] [place] [address] Lymphocytes (Bld) [#/Vol] 0.95 10*3/uL Low 1.20-4.00 [facility] Comment on above: Performed By: #### L [id number] ####[facility] (BEAKER)[address] [place] [address] Lymphocytes/100 WBC (Bld) 6.4 % Low 20.0-45.0 [facility] Comment on above: Performed By: #### L [id number] ####[facility] (BEAKER)[address] [place] [address] MCH (RBC) [Entitic mass] 31.7 pg Normal 27.0-33.0 [facility] Comment on above: Performed By: #### L [id number] ####[facility] (BEAKER)[address] [place], [place] [address] MCV (RBC) [Entitic vol] 89.0 fL Normal 82.0-98.0 [facility] Comment on above: Performed By: #### L [id number] ####[facility] (BEAKER)[address] [place] [address] Monocytes (Bld) [#/Vol] 1.37 10*3/uL High 0.10-1.00 [facility] Comment on above: Performed By: #### L [id number] ####[facility] (BEAKER)[address] [place] [address] Monocytes/100 WBC (Bld) 9.3 % Normal 5.0-12.0 [facility] Comment on above: Performed By: #### L [id number] ####[facility] (BEAKER)[address] [place] [address] Neutrophils (Bld) [#/Vol] 12.36 10*3/uL High 1.60-7.60 [facility] Comment on above: Performed By: #### L [id number] ####[facility] (BEAKER)[address] [place] [address] Neutrophils/100 WBC (Bld) 83.5 % High 40.0-72.0 [facility] Comment on above: Performed By: #### L [id number] ####[facility] ([facility])[address] [place] [address] NRBC (PER 100 WBCS) BY AUTOMATED COUNT 0.0 % Normal 0 [facility] Comment on above: Performed By: #### L [id number] ####[facility] ([facility])[address] [place] [address] PLATELETS (10*3/UL) IN BLOOD AUTOMATED COUNT 108 10*3/uL Low 150-400 [facility] Comment on above: Performed By: #### L [id number] ####[facility] ([facility])[address] [address] RBC (Bld) [#/Vol] 3.19 10*6/uL Low 4.20-5.70 [facility] Comment on above: Performed By: #### L [id number] ####[facility] ([facility])[address] [address] WBC (Bld) [#/Vol] 14.79 10*3/uL High 4.00-10.60 [facility] Comment on above: Performed By: #### L [id number] ####[facility] ([facility])[address] [address] CO-OXIMETRYon 04-22-2023 CARBOXYHEMOGLOBIN/ HEMOGLOBIN TOTAL % IN BLOOD 1.5 % Normal [facility] Comment on above: Performed By: #### L [id number] ####[facility] [id number] [place] [address] [place] Hemoglobin (Bld) [Mass/Vol] 12.7 g/dL Normal [facility] Comment on above: Performed By: #### L [id number] ####[facility] [id number] [place] [address] [place] METHEMOGLOBIN/100 IN BLOOD 0.1 % Normal 0.0-1.5 [facility] Comment on above: Performed By: #### L [id number] ####[facility] [id number] [place] [address] [place] Oxygen saturation in Blood 71.7 % Normal [facility] Comment on above: Performed By: #### L [id number] ####[facility] [id number] [place] [address] [place] OXYGENATED HEMOGLOBIN IN BLOOD 70.6 % Normal [facility] Comment on above: Performed By: #### L [id number] ####[facility] [id number] [place] [address] [place] CONSULTon 04-22-2023 CONSULT Normal [facility] FIBRINOGENon 04-22-2023 Magnesium [Mass/Vol] 162 mg/dL Normal 150-425 [facility] Comment on above: Order Comment: Pre-o p diagnosis:NSTEMI (non-ST elevated myocardial infarction) (CMS/HCC) [I21.4]Acute non-ST segment elevation myocardial infarction (CMS/HCC) [I21.4]Coronary artery disease, unspecified vessel or lesion type, unspecified whether angina present, unspecified whether [place] or 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] Performed By: #### L [id number] ####[facility] ([facility])[address] [place] [address] HEPATIC FUNCTION PANELon Albumin [Mass/Vol] 2.5 g/dL Low 3.5-5.7 [facility] Comment on above: Performed By: #### L [id number] ####[facility] ([facility])[address] [place] [address] ALP [Catalytic activity/Vol] 54 U/L Normal 34-104 [facility] Comment on above: Performed By: #### L [id number] ####[facility] ([facility])[address] [place] [address] ALT [Catalytic activity/Vol] 10 U/L Normal 7-52 [facility] Comment on above: Performed By: #### L [id number] ####[facility] ([facility])[address] [place] [address] AST [Catalytic activity/Vol] 34 U/L Normal 13-39 [facility] Comment on above: Performed By: #### L [id number] ####[facility] (BEAKER)[address] [place] [address] Bilirubin [Mass/Vol] 0.6 mg/dL Normal 0.3-1.0 [facility] Comment on above: Performed By: #### L [id number] ####[facility] ([facility])[address] [place] [address] Magnesium [Mass/Vol] 0.2 mg/dL Normal 0-0.2 [facility] Comment on above: Performed By: #### L [id number] ####[facility] ([facility])[address] [place] [address] Protein [Mass/Vol] 3.7 g/dL Low 6.0-8.3 [facility] Comment on above: Performed By: #### L [id number] ####[facility] ([facility])[address] [place] [address] HISTOLOGY - TISSUE EXAMon LAB AP CASE REPORT Normal [facility] Comment on above: Order Comment: Pre-o p diagnosis:NSTEMI (non-ST elevated myocardial infarction) (CMS/HCC) [I21.4]Acute non-ST segment elevation myocardial infarction (CMS/HCC) [I21.4]Coronary artery disease, unspecified vessel or lesion type, unspecified whether angina present, unspecified whether [place] or 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] Result Comment: Surg ical Pathology Case: [id number] Provider: Chaitanya Ames MD Collected: 04/22/2023 0928Ordering Location: [facility] Main Operating Room Received: 04/22/2023 1923Pathologist: RAHEEM Wilsonpecimens: A) - Lymph Node, ANTERIOR MEDIASTINAL LYMPH NODE B) - Lymph Node, RIGHT INTERNAL MAMMARY LYMPH NODE FOR HISTOLOGY Performed By: #### L [id number] ####[facility] ([facility])[address] [place] [address] LAB AP CLINICAL INFORMATION Normal [facility] Comment on above: Order Comment: Pre-o p diagnosis:NSTEMI (non-ST elevated myocardial infarction) (CMS/HCC) [I21.4]Acute non-ST segment elevation myocardial infarction (CMS/HCC) [I21.4]Coronary artery disease, unspecified vessel or lesion type, unspecified whether angina present, unspecified whether [place] or 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] Result Comment: Post -Op [id number] - NSTEMI (non-ST elevated myocardial infarction) (CMS/HCC) [ICD-10-CM]I21.4 - Acute non-ST segment elevation myocardial infarction (CMS/HCC) [ICD-10-CM]I25.10 - Coronary artery disease, unspecified vessel or lesion type, unspecified whether angina present, unspecified whether [place] or transplanted heart [ICD-10-CM] Performed By: #### L [id number] ####[facility] (BEAKER)[address] [place] [address] LAB AP GROSS DESCRIPTION A. Lymph Node. Normal [facility] Comment on above: Order Comment: Pre-o p diagnosis:NSTEMI (non-ST elevated myocardial infarction) (CMS/HCC) [I21.4]Acute non-ST segment elevation myocardial infarction (CMS/HCC) [I21.4]Coronary artery disease, unspecified vessel or lesion type, unspecified whether angina present, unspecified whether [place] or 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] Result Comment: Rece [...] submitted in a single cassette.Jenny Guajardo, Pathologists' [employer] Repair Technician Performed By: #### L [id number] ####[facility] ([facility])[address] [place] [address] LAB AP MICROSCOPIC DESCRIPTION Microscopic examination performed. [facility] Comment on above: Order Comment: Pre-o p diagnosis:NSTEMI (non-ST elevated myocardial infarction) (CMS/HCC) [I21.4]Acute non-ST segment elevation myocardial infarction (CMS/HCC) [I21.4]Coronary artery disease, unspecified vessel or lesion type, unspecified whether angina present, unspecified whether [place] or 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] Performed By: #### L [id number] ####[facility] ([facility])[address] [place] [address] LAB AP REPORT FINAL DIAGNOSIS NARRATIVE [facility] Comment on above: Order Comment: Pre-o p diagnosis:NSTEMI (non-ST elevated myocardial infarction) (CMS/HCC) [I21.4]Acute non-ST segment elevation myocardial infarction (CMS/HCC) [I21.4]Coronary artery disease, unspecified vessel or lesion type, unspecified whether angina present, unspecified whether [place] or 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] Result Comment: A. L ymph node, anterior mediastinal, regional resection: - Two benign lymph nodes with sinus histiocytosis and anthracosis (0/2).B. Lymph node, right internal mammary, regional resection: - One benign lymph node with sinus histiocytosis and anthracosis (0/1). - Minute fragment of skeletal muscle and fibroadipose tissue with focal chronic inflammation. Performed By: #### L [id number] ####[facility] ([facility])[address] [place] [address] HPon 04-22-2023 HP H&P reviewed. The pa indy was examined and there are no changes to the H&P. [facility] LACTIC ACID WITH 4 HOUR REFL EXon 04-22-2023 LACTATE (MMOL/L) IN SER/PLAS 2.3 mmol/L High 0.5-2.2 [facility] Comment on above: Order Comment: Pre-o p diagnosis:NSTEMI (non-ST elevated myocardial infarction) (CMS/HCC) [I21.4]Acute non-ST segment elevation myocardial infarction (CMS/HCC) [I21.4]Coronary artery disease, unspecified vessel or lesion type, unspecified whether angina present, unspecified whether [place] or 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] Performed By: #### L [id number] ####[facility] ([facility])[address] [facility] [address] LACTIC ACID, PLASMAon 2022 LACTATE (MMOL/L) IN SER/PLAS 2.6 mmol/L Critically high 0.5-2.2 [facility] Comment on above: Result Comment: Prev ious result verified on 04/22/2023 1906 on specimen/case [id number] called with component Lactate for procedure Lactic acid, plasma with value 2.7 mmol/L. Performed By: #### L [id number] ####[facility] ([employer])[address] [facility] [address] LACTATE (MMOL/L) IN SER/PLAS 2.7 mmol/L Critically high 0.5-2.2 [facility] Comment on above: Performed By: #### L [id number] ####[facility] ([employer])[address] [place] [address] MAGNESIUMon 04-22-2023 Magnesium [Mass/Vol] 2.1 mg/dL Normal 1.9-2.7 [facility] Comment on above: Performed By: #### L [id number] ####[facility] ([facility])[address] [place] [facility] [place] [address] Magnesium [Mass/Vol] 2.4 mg/dL Normal 1.9-2.7 [facility] Comment on above: Order Comment: Pre-o p diagnosis:NSTEMI (non-ST elevated myocardial infarction) (CMS/HCC) [I21.4]Acute non-ST segment elevation myocardial infarction (CMS/HCC) [I21.4]Coronary artery disease, unspecified vessel or lesion type, unspecified whether angina present, unspecified whether [place] or 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] Performed By: #### L [id number] ####[facility] ([facility])[address] [place] [address] OPNOTEon 04-22-2023 OPNOTE Normal [facility] PHOSPHORUSon 04-22-2023 Magnesium [Mass/Vol] 3.6 mg/dL Normal 2.5-5.0 [facility] Comment on above: Performed By: #### L [id number] ####[facility] ([facility])[address] [place] [address] POCT ACTIVATED CLOTTING TIME UNSOLICITED RESULTSon 04-22-2023 POC ACTIVATED CLOTTING TIME 132 sec Normal 82-152 [facility] Comment on above: Performed By: #### L [id number] ####[facility] ([facility])[address] [place] [address] POC ACTIVATED CLOTTING TIME 341 sec High 82-152 [facility] Comment on above: Performed By: #### L [id number] ####[facility] ([facility])[address] [place] [address] POC ACTIVATED CLOTTING TIME 473 sec High 82-152 [facility] Comment on above: Performed By: #### L [id number] ####[facility] ([facility])[address] [place] [address] POC ACTIVATED CLOTTING TIME 516 sec High 82-152 [facility] Comment on above: Performed By: #### L [id number] ####[facility] ([facility])[address] [place] [address] POC ACTIVATED CLOTTING TIME 460 sec High 82-152 [facility] Comment on above: Performed By: #### L [id number] ####[facility] (BEAKER)[address] [place] [address] POC ACTIVATED CLOTTING TIME 446 sec High 82-152 [facility] Comment on above: Performed By: #### L [id number] ####[facility] (BEAKER)[address] [place] [address] POC ACTIVATED CLOTTING TIME 479 sec High 82-152 [facility] Comment on above: Performed By: #### L [id number] ####[facility] (BEAKER)[address] [place] [address] POC ACTIVATED CLOTTING TIME 447 sec High 82-152 [facility] Comment on above: Performed By: #### L [id number] ####[facility] (BEAKER)[address] [place] [address] POC ACTIVATED CLOTTING TIME 596 sec High 82-152 [facility] Comment on above: Performed By: #### L [id number] ####[facility] (BEAKER)[address] [place] [address] POC ACTIVATED CLOTTING TIME 602 sec High 82-152 [facility] Comment on above: Performed By: #### L [id number] ####[facility] (BEAKER)[address] [place] [address] POC ACTIVATED CLOTTING TIME 143 sec Normal 82-152 [facility] Comment on above: Performed By: #### L [id number] ####[facility] (BEAKER)[address] [place] [address] POCT GLUCOSE METER UNSOLICIT ED RESULTSon 04-22-2023 Glucose [Mass/Vol] 156 mg/dL High 70-105 [facility] Comment on above: Order Comment: Waive d Testing in the ED is performed under the ED CLIA certificate #[id number]. Result Comment: [email or web address] Performed By: #### L [id number] ####[facility] (BEAKER)[address] [place] [address] Glucose [Mass/Vol] 121 mg/dL High 70-105 [facility] Comment on above: Order Comment: Waive d Testing in the ED is performed under the ED CLIA certificate #[id number]. Result Comment: [email or web address] Performed By: #### L [id number] ####[facility] (BEAKER)[address] [place] [address] Glucose [Mass/Vol] 122 mg/dL High 70-105 [facility] Comment on above: Order Comment: Waive d Testing in the ED is performed under the ED CLIA certificate #[id number]. Result Comment: [email or web address] man Performed By: #### L [id number] ####[facility] ([facility])[address] [place] [address] Glucose [Mass/Vol] 137 mg/dL High 70-105 [facility] Comment on above: Order Comment: Waive d Testing in the ED is performed under the ED CLIA certificate #[id number]. Result Comment: [email or web address] Performed By: #### L [id number] ####[facility] ([facility])[address] [place] [address] Glucose [Mass/Vol] 107 mg/dL High 70-105 [facility] Comment on above: Order Comment: Waive d Testing in the ED is performed under the ED CLIA certificate #[id number]. Result Comment: [email or web address] [email or web address] Performed By: #### L [id number] ####[facility] ([facility])[address] [place] [address] POCT PERFUSION PANEL UNSOLIC ITED RESULTSon 04-22-2023 CO2 [Moles/Vol] 25.0 mmol/L Normal 21.0-29.0 [facility] Comment on above: Performed By: #### L [id number] ####[facility] ([facility])[address] [place] [address] Glucose [Mass/Vol] 195 mg/dL High 70-105 [facility] Comment on above: Performed By: #### L [id number] ####[facility] ([facility])[address] [place] [address] HCO3 (Bld) [Moles/Vol] 23.6 mmol/L Normal 23.0-28.0 [facility] Comment on above: Performed By: #### L [id number] ####[facility] (BEAKER)[address] [place] [address] Hematocrit (Bld) [Volume fraction] 27 % Low 38-51 [facility] Comment on above: Performed By: #### L [id number] ####[facility] (BEAKER)[address] [place] [address] Hemoglobin (Bld) [Mass/Vol] 9.2 g/dL Low 12.0-17.0 [facility] Comment on above: Performed By: #### L [id number] ####[facility] (BEAKER)[address] [address] POCT BASE EXCESS -3.0 mmol/L Low -2.0-3.0 [facility] Comment on above: Performed By: #### L [id number] ####[facility] (BEAKER)[address] [place] [address] POCT IONIZED CALCIUM 1.35 mmol/L High 1.12-1.32 [facility] Comment on above: Performed By: #### L [id number] ####[facility] (BEAKER)[address] [place] [address] POCT PCO2 47.6 mmHg Normal 41.0-51.0 [facility] Comment on above: Performed By: #### L [id number] ####[facility] (BEAKER)[address] [place] [address] POCT PH 7.30 Low 7.31-7.41 [facility] Comment on above: Performed By: #### L [id number] ####[facility] (BEAKER)[address] [place] [address] POCT PO2 355 mmHg High 80-105 [facility] Comment on above: Performed By: #### L [id number] ####[facility] (BEAKER)[address] [place] [address] POCT SO2 100 % High 95-98 [facility] Comment on above: Performed By: #### L [id number] ####[facility] (BEAKER)[address] [address] Potassium [Moles/Vol] 3.2 mmol/L Low 3.5-4.9 [facility] Comment on above: Performed By: #### L [id number] ####[facility] (BEAKER)[address] [place] [address] Sodium [Moles/Vol] 146 mmol/L Normal 138.0-146.0 [facility] Comment on above: Performed By: #### L [id number] ####[facility] (BEAKER)[address] [place] [address] CO2 [Moles/Vol] 26.0 mmol/L Normal 21.0-29.0 [facility] Comment on above: Performed By: #### L [id number] ####[facility] (BEAKER)[address] [place] [address] Glucose [Mass/Vol] 196 mg/dL High 70-105 [facility] Comment on above: Performed By: #### L [id number] ####[facility] (BEAKER)[address] [place] [address] HCO3 (Bld) [Moles/Vol] 24.2 mmol/L Normal 23.0-28.0 [facility] Comment on above: Performed By: #### L [id number] ####[facility] (BEAKER)[address] [place] [address] Hematocrit (Bld) [Volume fraction] 21 % Low 38-51 [facility] Comment on above: Performed By: #### L [id number] ####[facility] (BEAKER)[address] [place] [address] Hemoglobin (Bld) [Mass/Vol] 7.1 g/dL Low 12.0-17.0 [facility] Comment on above: Performed By: #### L [id number] ####[facility] (BEAKER)[address] [place] [address] POCT BASE EXCESS -3.0 mmol/L Low -2.0-3.0 [facility] Comment on above: Performed By: #### L [id number] ####[facility] (BEAKER)[address] [place], [place] [address] POCT IONIZED CALCIUM 1.19 mmol/L Normal 1.12-1.32 [facility] Comment on above: Performed By: #### L [id number] ####[facility] (BEAKER)[address] [address] POCT PCO2 52.4 mmHg High 41.0-51.0 [facility] Comment on above: Performed By: #### L [id number] ####[facility] ([facility])[address] [address] POCT PH 7.27 Low 7.31-7.41 [facility] Comment on above: Performed By: #### L [id number] ####[facility] ([facility])[address] [address] POCT PO2 488 mmHg High 80-105 [facility] Comment on above: Performed By: #### L [id number] ####[facility] ([facility])[address] [address] POCT SO2 100 % High 95-98 [facility] Comment on above: Performed By: #### L [id number] ####[facility] ([facility])[address], [place] [address] Potassium [Moles/Vol] 3.7 mmol/L Normal 3.5-4.9 [facility] Comment on above: Performed By: #### L [id number] ####[facility] ([facility])[address] [place] [address] Sodium [Moles/Vol] 145 mmol/L Normal 138.0-146.0 [facility] Comment on above: Performed By: #### L [id number] ####[facility] ([facility])[address] [place] [address] CO2 [Moles/Vol] 24.0 mmol/L Normal 21.0-29.0 [facility] Comment on above: Performed By: #### L [id number] ####[facility] ([facility])[address] [place] [address] Glucose [Mass/Vol] 177 mg/dL High 70-105 [facility] Comment on above: Performed By: #### L [id number] ####[facility] ([facility]ER)[address] [place] [address] HCO3 (Bld) [Moles/Vol] 22.2 mmol/L Low 23.0-28.0 [facility] Comment on above: Performed By: #### L [id number] ####[facility] ([facility])[address] [place] [address] Hematocrit (Bld) [Volume fraction] 21 % Low 38-51 [facility] Comment on above: Performed By: #### L [id number] ####[facility] ([facility])[address] [place] [address] Hemoglobin (Bld) [Mass/Vol] 7.1 g/dL Low 12.0-17.0 [facility] Comment on above: Performed By: #### L [id number] ####[facility] ([facility])[address] [place] [address] POCT BASE EXCESS -4.0 mmol/L Low -2.0-3.0 [facility] Comment on above: Performed By: #### L [id number] ####[facility] ([facility])[address] [place] [address] POCT IONIZED CALCIUM 1.32 mmol/L Normal 1.12-1.32 [facility] Comment on above: Performed By: #### L [id number] ####[facility] ([facility])[address] [place] [address] POCT PCO2 44.7 mmHg Normal 41.0-51.0 [facility] Comment on above: Performed By: #### L [id number] ####[facility] ([facility])[address] [place] [address] POCT PH 7.30 Low 7.31-7.41 [facility] Comment on above: Performed By: #### L [id number] ####[facility] ([facility])[address] [place] [address] POCT PO2 449 mmHg High 80-105 [facility] Comment on above: Performed By: #### L [id number] ####[facility] ([facility])[address] [place] [address] POCT SO2 100 % High 95-98 [facility] Comment on above: Performed By: #### L [id number] ####[facility] ([facility])[address] [place] [address] Potassium [Moles/Vol] 4.4 mmol/L Normal 3.5-4.9 [facility] Comment on above: Performed By: #### L [id number] ####[facility] ([facility])[address] [place] [address] Sodium [Moles/Vol] 141 mmol/L Normal 138.0-146.0 [facility] Comment on above: Performed By: #### L [id number] ####[facility] ([facility])[address] [place] [address] CO2 [Moles/Vol] 25.0 mmol/L Normal 21.0-29.0 [facility] Comment on above: Performed By: #### L [id number] ####[facility] ([facility])[address] [place] [address] Glucose [Mass/Vol] 171 mg/dL High 70-105 [facility] Comment on above: Performed By: #### L [id number] ####[facility] ([facility])[address] [place] [address] HCO3 (Bld) [Moles/Vol] 24.0 mmol/L Normal 23.0-28.0 [facility] Comment on above: Performed By: #### L [id number] ####[facility] ([facility])[address] [place] [address] Hematocrit (Bld) [Volume fraction] 26 % Low 38-51 [facility] Comment on above: Performed By: #### L [id number] ####[facility] ([facility])[address] [address] Hemoglobin (Bld) [Mass/Vol] 8.8 g/dL Low 12.0-17.0 [facility] Comment on above: Performed By: #### L [id number] ####[facility] ([facility])[address] [address] POCT BASE EXCESS -1.0 mmol/L Normal -2.0-3.0 [facility] Comment on above: Performed By: #### L [id number] ####[facility] ([facility])[address] [address] POCT IONIZED CALCIUM 1.06 mmol/L Low 1.12-1.32 [facility] Comment on above: Performed By: #### L [id number] ####[facility] ([facility])[address] [address] POCT PCO2 38.1 mmHg Low 41.0-51.0 [facility] Comment on above: Performed By: #### L [id number] ####[facility] ([facility])[address] [address] POCT PH 7.41 Normal 7.31-7.41 [facility] Comment on above: Performed By: #### L [id number] ####[facility] ([facility])[address] [address] POCT PO2 534 mmHg High 80-105 [facility] Comment on above: Performed By: #### L [id number] ####[facility] ([facility])[address] [address] POCT SO2 100 % High 95-98 [facility] Comment on above: Performed By: #### L [id number] ####[facility] ([facility])[address] [address] Potassium [Moles/Vol] 4.1 mmol/L Normal 3.5-4.9 [facility] Comment on above: Performed By: #### L [id number] ####[facility] ([facility]ER)[address] [place] [address] Sodium [Moles/Vol] 141 mmol/L Normal 138.0-146.0 [facility] Comment on above: Performed By: #### L [id number] ####[facility] ([facility]ER)[address] [place] [address] CO2 [Moles/Vol] 27.0 mmol/L Normal 21.0-29.0 [facility] Comment on above: Performed By: #### L [id number] ####[facility] ([facility])[address] [place] [address] Glucose [Mass/Vol] 187 mg/dL High 70-105 [facility] Comment on above: Performed By: #### L [id number] ####[facility] ([facility]ER)[address] [place] [address] HCO3 (Bld) [Moles/Vol] 25.8 mmol/L Normal 23.0-28.0 [facility] Comment on above: Performed By: #### L [id number] ####[facility] ([facility])[address] [place] [address] Hematocrit (Bld) [Volume fraction] 26 % Low 38-51 [facility] Comment on above: Performed By: #### L [id number] ####[facility] ([facility]ER)[address] [place] [address] Hemoglobin (Bld) [Mass/Vol] 8.8 g/dL Low 12.0-17.0 [facility] Comment on above: Performed By: #### L [id number] ####[facility] ([facility])[address] [place] [address] POCT BASE EXCESS 1.0 mmol/L Normal -2.0-3.0 [facility] Comment on above: Performed By: #### L [id number] ####[facility] ([facility])[address] [address] POCT IONIZED CALCIUM 1.06 mmol/L Low 1.12-1.32 [facility] Comment on above: Performed By: #### L [id number] ####[facility] ([facility])[address] [address] POCT PCO2 40.4 mmHg Low 41.0-51.0 [facility] Comment on above: Performed By: #### L [id number] ####[facility] ([facility])[address] [address] POCT PH 7.41 Normal 7.31-7.41 [facility] Comment on above: Performed By: #### L [id number] ####[facility] ([facility])[address] [address] POCT PO2 506 mmHg High 80-105 [facility] Comment on above: Performed By: #### L [id number] ####[facility] ([facility])[address] [address] POCT SO2 100 % High 95-98 [facility] Comment on above: Performed By: #### L [id number] ####[facility] ([facility])[address] [address] Potassium [Moles/Vol] 4.2 mmol/L Normal 3.5-4.9 [facility] Comment on above: Performed By: #### L [id number] ####[facility] ([facility]ER)[address] [address] Sodium [Moles/Vol] 141 mmol/L Normal 138.0-146.0 [facility] Comment on above: Performed By: #### L [id number] ####[facility] ([facility])[address] [address] CO2 [Moles/Vol] 23.0 mmol/L Normal 21.0-29.0 [facility] Comment on above: Performed By: #### L [id number] ####[facility] ([facility]ER)[address] [place] [address] Glucose [Mass/Vol] 211 mg/dL High 70-105 [facility] Comment on above: Performed By: #### L [id number] ####[facility] (BE[facility]ER)[address] [place] [address] HCO3 (Bld) [Moles/Vol] 22.1 mmol/L Low 23.0-28.0 [facility] Comment on above: Performed By: #### L [id number] ####[facility] ([facility])[address], [place] [address] Hematocrit (Bld) [Volume fraction] 28 % Low 38-51 [facility] Comment on above: Performed By: #### L [id number] ####[facility] ([facility])[address], [place] [address] Hemoglobin (Bld) [Mass/Vol] 9.5 g/dL Low 12.0-17.0 [facility] Comment on above: Performed By: #### L [id number] ####[facility] ([facility])[address] [place] [address] POCT BASE EXCESS -3.0 mmol/L Low -2.0-3.0 [facility] Comment on above: Performed By: #### L [id number] ####[facility] ([facility])[address] [place] [address] POCT IONIZED CALCIUM 1.08 mmol/L Low 1.12-1.32 [facility] Comment on above: Performed By: #### L [id number] ####[facility] ([facility])[address] [place] [address] POCT PCO2 38.1 mmHg Low 41.0-51.0 [facility] Comment on above: Performed By: #### L [id number] ####[facility] ([facility])[address] [place] [address] POCT PH 7.37 Normal 7.31-7.41 [facility] Comment on above: Performed By: #### L [id number] ####[facility] ([facility])[address] [place] [address] POCT PO2 418 mmHg High 80-105 [facility] Comment on above: Performed By: #### L [id number] ####[facility] ([facility]ER)[address] [place] [address] POCT SO2 100 % High 95-98 [facility] Comment on above: Performed By: #### L [id number] ####[facility] ([facility])[address] [place] [address] Potassium [Moles/Vol] 4.7 mmol/L Normal 3.5-4.9 [facility] Comment on above: Performed By: #### L [id number] ####[facility] ([facility])[address] [place] [address] Sodium [Moles/Vol] 137 mmol/L Low 138.0-146.0 [facility] Comment on above: Performed By: #### L [id number] ####[facility] ([facility]ER)[address] [place] [address] CO2 [Moles/Vol] 24.0 mmol/L Normal 21.0-29.0 [facility] Comment on above: Performed By: #### L [id number] ####[facility] ([facility])[address] [place] [address] Glucose [Mass/Vol] 203 mg/dL High 70-105 [facility] Comment on above: Performed By: #### L [id number] ####[facility] ([facility])[address] [place] [address] HCO3 (Bld) [Moles/Vol] 22.6 mmol/L Low 23.0-28.0 [facility] Comment on above: Performed By: #### L [id number] ####[facility] ([facility])[address] [place] [address] Hematocrit (Bld) [Volume fraction] 26 % Low 38-51 [facility] Comment on above: Performed By: #### L [id number] ####[facility] ([facility]ER)[address] [address] Hemoglobin (Bld) [Mass/Vol] 8.8 g/dL Low 12.0-17.0 [facility] Comment on above: Performed By: #### L [id number] ####[facility] ([facility])[address] [address] POCT BASE EXCESS -2.0 mmol/L Normal -2.0-3.0 [facility] Comment on above: Performed By: #### L [id number] ####[facility] ([facility])[address] [address] POCT IONIZED CALCIUM 1.06 mmol/L Low 1.12-1.32 [facility] Comment on above: Performed By: #### L [id number] ####[facility] ([facility])[address] [address] POCT PCO2 38.7 mmHg Low 41.0-51.0 [facility] Comment on above: Performed By: #### L [id number] ####[facility] ([facility])[address] [address] POCT PH 7.38 Normal 7.31-7.41 [facility] Comment on above: Performed By: #### L [id number] ####[facility] ([facility])[address] [address] POCT PO2 377 mmHg High 80-105 [facility] Comment on above: Performed By: #### L [id number] ####[facility] ([facility]ER)[address] [address] POCT SO2 100 % High 95-98 [facility] Comment on above: Performed By: #### L [id number] ####[facility] ([facility]ER)[address] [address] Potassium [Moles/Vol] 5.0 mmol/L High 3.5-4.9 [facility] Comment on above: Performed By: #### L [id number] ####[facility] ([facility]ER)[address] [place] [address] Sodium [Moles/Vol] 137 mmol/L Low 138.0-146.0 [facility] Comment on above: Performed By: #### L [id number] ####[facility] ([facility]ER)[address] [place] [address] CO2 [Moles/Vol] 24.0 mmol/L Normal 21.0-29.0 [facility] Comment on above: Performed By: #### L [id number] ####[facility] ([facility]ER)[address] [place] [address] Glucose [Mass/Vol] 193 mg/dL High 70-105 [facility] Comment on above: Performed By: #### L [id number] ####[facility] ([facility]ER)[address] [place] [address] HCO3 (Bld) [Moles/Vol] 23.3 mmol/L Normal 23.0-28.0 [facility] Comment on above: Performed By: #### L [id number] ####[facility] ([facility])[address] [place] [address] Hematocrit (Bld) [Volume fraction] 28 % Low 38-51 [facility] Comment on above: Performed By: #### L [id number] ####[facility] ([facility]ER)[address] [place] [address] Hemoglobin (Bld) [Mass/Vol] 9.5 g/dL Low 12.0-17.0 [facility] Comment on above: Performed By: #### L [id number] ####[facility] ([facility]ER)[address] [place] [address] POCT BASE EXCESS -2.0 mmol/L Normal -2.0-3.0 [facility] Comment on above: Performed By: #### L [id number] ####[facility] ([facility]ER)[address] [place] [address] POCT IONIZED CALCIUM 1.07 mmol/L Low 1.12-1.32 [facility] Comment on above: Performed By: #### L [id number] ####[facility] ([facility])[address] [address] POCT PCO2 38.7 mmHg Low 41.0-51.0 [facility] Comment on above: Performed By: #### L [id number] ####[facility] ([facility])[address] [address] POCT PH 7.39 Normal 7.31-7.41 [facility] Comment on above: Performed By: #### L [id number] ####[facility] ([facility])[address] [address] POCT PO2 367 mmHg High 80-105 [facility] Comment on above: Performed By: #### L [id number] ####[facility] ([facility])[address] [address] POCT SO2 100 % High 95-98 [facility] Comment on above: Performed By: #### L [id number] ####[facility] ([facility])[address] [address] Potassium [Moles/Vol] 5.6 mmol/L High 3.5-4.9 [facility] Comment on above: Performed By: #### L [id number] ####[facility] ([facility])[address] [address] Sodium [Moles/Vol] 138 mmol/L Normal 138.0-146.0 [facility] Comment on above: Performed By: #### L [id number] ####[facility] ([facility])[address] [address] CO2 [Moles/Vol] 25.0 mmol/L Normal 21.0-29.0 [facility] Comment on above: Performed By: #### L [id number] ####[facility] ([facility]ER)[address] [place] [address] Glucose [Mass/Vol] 165 mg/dL High 70-105 [facility] Comment on above: Performed By: #### L [id number] ####[facility] ([facility]ER)[address] [address] HCO3 (Bld) [Moles/Vol] 23.5 mmol/L Normal 23.0-28.0 [facility] Comment on above: Performed By: #### L [id number] ####[facility] ([facility])[address] [address] Hematocrit (Bld) [Volume fraction] 27 % Low 38-51 [facility] Comment on above: Performed By: #### L [id number] ####[facility] ([facility])[address] [address] Hemoglobin (Bld) [Mass/Vol] 9.2 g/dL Low 12.0-17.0 [facility] Comment on above: Performed By: #### L [id number] ####[facility] ([facility])[address] [address] POCT BASE EXCESS -1.0 mmol/L Normal -2.0-3.0 [facility] Comment on above: Performed By: #### L [id number] ####[facility] ([facility]ER)[address] [place] [address] POCT IONIZED CALCIUM 1.08 mmol/L Low 1.12-1.32 [facility] Comment on above: Performed By: #### L [id number] ####[facility] ([facility])[address] [place] [address] POCT PCO2 38.4 mmHg Low 41.0-51.0 [facility] Comment on above: Performed By: #### L [id number] ####[facility] ([facility]ER)[address] [place] [address] POCT PH 7.39 Normal 7.31-7.41 [facility] Comment on above: Performed By: #### L [id number] ####[facility] ([facility])[address] [place] [address] POCT PO2 387 mmHg High 80-105 [facility] Comment on above: Performed By: #### L [id number] ####[facility] ([facility]ER)[address] [place] [address] POCT SO2 100 % High 95-98 [facility] Comment on above: Performed By: #### L [id number] ####[facility] ([facility])[address] [place] [address] Potassium [Moles/Vol] 5.9 mmol/L High 3.5-4.9 [facility] Comment on above: Performed By: #### L [id number] ####[facility] ([facility]ER)[address] [place] [address] Sodium [Moles/Vol] 138 mmol/L Normal 138.0-146.0 [facility] Comment on above: Performed By: #### L [id number] ####[facility] ([facility]ER)[address] [place] [address] CO2 [Moles/Vol] 26.0 mmol/L Normal 21.0-29.0 [facility] Comment on above: Performed By: #### L [id number] ####[facility] ([facility])[address] [place] [address] Glucose [Mass/Vol] 142 mg/dL High 70-105 [facility] Comment on above: Performed By: #### L [id number] ####[facility] ([facility]ER)[address] [place] [address] HCO3 (Bld) [Moles/Vol] 24.5 mmol/L Normal 23.0-28.0 [facility] Comment on above: Performed By: #### L [id number] ####[facility] ([facility]ER)[address] [place] [address] Hematocrit (Bld) [Volume fraction] 24 % Low 38-51 [facility] Comment on above: Performed By: #### L [id number] ####[facility] ([facility])[address] [address] Hemoglobin (Bld) [Mass/Vol] 8.2 g/dL Low 12.0-17.0 [facility] Comment on above: Performed By: #### L [id number] ####[facility] ([facility])[address] [place] [address] POCT BASE EXCESS -1.0 mmol/L Normal -2.0-3.0 [facility] Comment on above: Performed By: #### L [id number] ####[facility] ([facility])[address], [place] [address] POCT IONIZED CALCIUM 0.99 mmol/L Low 1.12-1.32 [facility] Comment on above: Performed By: #### L [id number] ####[facility] ([facility])[address] [place] [address] POCT PCO2 44.6 mmHg Normal 41.0-51.0 [facility] Comment on above: Performed By: #### L [id number] ####[facility] ([facility])[address], [place] [address] POCT PH 7.35 Normal 7.31-7.41 [facility] Comment on above: Performed By: #### L [id number] ####[facility] ([facility])[address] [place] [address] POCT PO2 462 mmHg High 80-105 [facility] Comment on above: Performed By: #### L [id number] ####[facility] ([facility])[address] [place] [address] POCT SO2 100 % High 95-98 [facility] Comment on above: Performed By: #### L [id number] ####[facility] ([facility])[address] [place] [address] Potassium [Moles/Vol] 6.2 mmol/L Critically high 3.5-4.9 [facility] Comment on above: Performed By: #### L [id number] ####[facility] ([facility])[address] [place] [address] Sodium [Moles/Vol] 136 mmol/L Low 138.0-146.0 [facility] Comment on above: Performed By: #### L [id number] ####[facility] ([facility])[address] [place] [address] CO2 [Moles/Vol] 24.0 mmol/L Normal 21.0-29.0 [facility] Comment on above: Performed By: #### L [id number] ####[facility] ([facility]ER)[address] [place] [address] Glucose [Mass/Vol] 151 mg/dL High 70-105 [facility] Comment on above: Performed By: #### L [id number] ####[facility] ([facility]ER)[address] [place] [address] HCO3 (Bld) [Moles/Vol] 22.6 mmol/L Low 23.0-28.0 [facility] Comment on above: Performed By: #### L [id number] ####[facility] ([facility])[address] [place] [address] Hematocrit (Bld) [Volume fraction] 38 % Normal 38-51 [facility] Comment on above: Performed By: #### L [id number] ####[facility] ([facility])[address] [place] [address] Hemoglobin (Bld) [Mass/Vol] 12.9 g/dL Normal 12.0-17.0 [facility] Comment on above: Performed By: #### L [id number] ####[facility] ([facility])[address] [place] [address] POCT BASE EXCESS -4.0 mmol/L Low -2.0-3.0 [facility] Comment on above: Performed By: #### L [id number] ####[facility] ([facility]AKER)[address] [place] [address] POCT IONIZED CALCIUM 1.25 mmol/L Normal 1.12-1.32 [facility] Comment on above: Performed By: #### L [id number] ####[facility] ([facility]AKER)[address] [address] POCT PCO2 47.5 mmHg Normal 41.0-51.0 [facility] Comment on above: Performed By: #### L [id number] ####[facility] [facility] [address] POCT PH 7.29 Low 7.31-7.41 [facility] Comment on above: Performed By: #### L [id number] ####[facility] ([facility]ER)[address] [address] POCT PO2 336 mmHg High 80-105 [facility] Comment on above: Performed By: #### L [id number] ####[facility] (BEAKER)[address] [address] POCT SO2 100 % High 95-98 [facility] Comment on above: Performed By: #### L [id number] ####[facility] (BEAKER)[address] [address] Potassium [Moles/Vol] 4.4 mmol/L Normal 3.5-4.9 [facility] Comment on above: Performed By: #### L [id number] ####[facility] (BEAKER)[address] [place] [address] Sodium [Moles/Vol] 139 mmol/L Normal 138.0-146.0 [facility] Comment on above: Performed By: #### L [id number] ####[facility] (BEAKER)[address] [address] CO2 [Moles/Vol] 23.0 mmol/L Normal 21.0-29.0 [facility] Comment on above: Performed By: #### L [id number] ####[facility] (BEAKER)[address] [place] [address] Glucose [Mass/Vol] 123 mg/dL High 70-105 [facility] Comment on above: Performed By: #### L [id number] ####[facility] ([facility])[address] [address] HCO3 (Bld) [Moles/Vol] 22.1 mmol/L Low 23.0-28.0 [facility] Comment on above: Performed By: #### L [id number] ####[facility] ([facility])[address] [address] Hematocrit (Bld) [Volume fraction] 38 % Normal 38-51 [facility] Comment on above: Performed By: #### L [id number] ####[facility] ([facility])[address] [address] Hemoglobin (Bld) [Mass/Vol] 12.9 g/dL Normal 12.0-17.0 [facility] Comment on above: Performed By: #### L [id number] ####[facility] ([facility])[address] [place] [address] POCT BASE EXCESS -3.0 mmol/L Low -2.0-3.0 [facility] Comment on above: Performed By: #### L [id number] ####[facility] ([facility])[address] [place] [address] POCT IONIZED CALCIUM 1.25 mmol/L Normal 1.12-1.32 [facility] Comment on above: Performed By: #### L [id number] ####[facility] ([facility])[address] [place] [address] POCT PCO2 39.3 mmHg Low 41.0-51.0 [facility] Comment on above: Performed By: #### L [id number] ####[facility] (BEAKER)[address] [place] [address] POCT PH 7.36 Normal 7.31-7.41 [facility] Comment on above: Performed By: #### L [id number] ####[facility] (BEAKER)[address] [place] [address] POCT PO2 412 mmHg High 80-105 [facility] Comment on above: Performed By: #### L [id number] ####[facility] (BEAKER)[address] [place] [address] POCT SO2 100 % High 95-98 [facility] Comment on above: Performed By: #### L [id number] ####[facility] ([facility])[address] [place] [address] Potassium [Moles/Vol] 3.8 mmol/L Normal 3.5-4.9 [facility] Comment on above: Performed By: #### L [id number] ####[facility] ([facility])[address] [place] [address] Sodium [Moles/Vol] 140 mmol/L Normal 138.0-146.0 [facility] Comment on above: Performed By: #### L [id number] ####[facility] ([facility])[address] [place] [address] PROTIME-INRon 04-22-2023 INR IN PPP BY COAGULATION ASSAY 1.60 High 0.90-1.10 [facility] Comment on above: Result Comment: ACCC P [...] CHEST 1995;108:231S-246S. Performed By: #### L [id number] ####[facility] ([employer])[address] [place] [address] PROTHROMBIN TIME (PT) IN PPP BY COAGULATION ASSAY 19.1 Seconds High 12.3-14.8 [facility] Comment on above: Performed By: #### L [id number] ####[facility] ([employer])[address] [place] [address] INR IN PPP BY COAGULATION ASSAY 1.72 High 0.90-1.10 [facility] Comment on above: Result Comment: ACCC P [...] CHEST 1995;108:231S-246S. Performed By: #### L [id number] ####[facility] ([employer])[address] [place] [address] PROTHROMBIN TIME (PT) IN PPP BY COAGULATION ASSAY 20.2 Seconds High 12.3-14.8 [facility] Comment on above: Performed By: #### L [id number] ####[facility] ([employer])[address] [place] [address] INR IN PPP BY COAGULATION ASSAY 2.00 High 0.90-1.10 [facility] Comment on above: Order Comment: Pre-o p diagnosis:NSTEMI (non-ST elevated myocardial infarction) (CMS/HCC) [I21.4]Acute non-ST segment elevation myocardial infarction (CMS/HCC) [I21.4]Coronary artery disease, unspecified vessel or lesion type, unspecified whether angina present, unspecified whether [place] or 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] Result Comment: ACCC [...] CHEST 1995;108:231S-246S. Performed By: #### L [id number] ####[facility] (BEAKER)[address] [place] [address] PROTHROMBIN TIME (PT) IN PPP BY COAGULATION ASSAY 22.8 Seconds High 12.3-14.8 [facility] Comment on above: Order Comment: Pre-o p diagnosis:NSTEMI (non-ST elevated myocardial infarction) (CMS/HCC) [I21.4]Acute non-ST segment elevation myocardial infarction (CMS/HCC) [I21.4]Coronary artery disease, unspecified vessel or lesion type, unspecified whether angina present, unspecified whether [place] or 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] Performed By: #### L [id number] ####[facility] ([facility])[address] [place] [address] 36on 04-21-2023 36 Called patient and l eft voicemail. Updated NPO after midnight and not to take any medications in the AM. Surgery scheduled for 0730am. Normal [facility] ANESon 04-21-2023 ANES Normal [facility] Telephoneon 04-21-2023 Telephone [phone] Gui Ortiz 1955 M Date Provider Department [place] 04/21/2023 KAREY MAGANA JHVCVASENDO PR [facility] Family History Family history unknown: Yes Normal [facility] APTTon 04-09-2023 ACTIVATED PARTIAL THROMBOPLASTIN TIME IN PPP BY COAGULATION ASSAY 34.7 Seconds Normal 25.0-35.0 [facility] Comment on above: Result Comment: Clin ical significance of the APTT is questionable in the presence of heparin. Performed By: #### L [id number] ####[facility] ([facility])[address] [place] [address] BASIC METABOLIC PANELon 03-18 Anion gap [Moles/Vol] 11 mmol/L Normal 7-20 [facility] Comment on above: Performed By: #### L [id number] ####[facility] ([facility])[address] [place] [address] Calcium [Mass/Vol] 9.8 mg/dL Normal 8.6-10.3 [facility] Comment on above: Performed By: #### L [id number] ####[facility] ([facility])[address] [place] [address] Chloride [Moles/Vol] 105 mmol/L Normal 98-107 [facility] Comment on above: Performed By: #### L [id number] ####[facility] (BEAKER)[address] [place] [address] CO2 [Moles/Vol] 25 mmol/L Normal 21-31 [facility] Comment on above: Performed By: #### L [id number] ####[facility] ([facility])[address] [place] [address] Creatinine [Mass/Vol] 0.91 mg/dL Normal 0.70-1.30 [facility] Comment on above: Performed By: #### L [id number] ####[facility] ([facility])[address] [place] [address] GLOMERULAR FILTRATION RATE ML/MIN/1.73 SQ M.PREDICTED 91.2 mL/min/1.73m*2 Normal >60.0 [facility] Comment on above: Result Comment: The [facility]???s estimated glomerular filtration rate (eGFR) will no [...] of individuals. Performed By: #### L [id number] ####[facility] ([facility])[address] [place] [address] Glucose [Mass/Vol] 105 mg/dL High 70-100 [facility] Comment on above: Performed By: #### L [id number] ####[facility] ([facility])[address] [place] [address] Potassium [Moles/Vol] 3.9 mmol/L Normal 3.5-5.1 [facility] Comment on above: Performed By: #### L [id number] ####[facility] ([facility])[address] [place] [address] Sodium [Moles/Vol] 137 mmol/L Normal 136-145 [facility] Comment on above: Performed By: #### L [id number] ####[facility] ([facility])[address] [place] [address] Urea nitrogen [Mass/Vol] 15 mg/dL Normal 7-25 [facility] Comment on above: Performed By: #### L [id number] ####[facility] ([facility])[address] [place] [address] UREA NITROGEN/CREATININ E (MASS RATIO) IN SER/PLAS 16.5 Normal [facility] Comment on above: Performed By: #### L [id number] ####[facility] ([facility])[address] [place] [address] CBC WITH AUTO DIFFERENTIALon 04-09-2023 Basophils (Bld) [#/Vol] 0.05 10*3/uL Normal 0.00-0.20 [facility] Comment on above: Performed By: #### L [id number] ####[facility] ([facility])[address] [place] [address] Basophils/100 WBC (Bld) 0.8 % Normal 0.0-1.0 [facility] Comment on above: Performed By: #### L [id number] ####[facility] ([facility])[address] [place] [address] Eosinophils (Bld) [#/Vol] 0.09 10*3/uL Normal 0.00-0.50 [facility] Comment on above: Performed By: #### L [id number] ####[facility] ([facility])[address] [place] [address] Eosinophils/100 WBC (Bld) 1.4 % Normal 0.0-6.0 [facility] Comment on above: Performed By: #### L [id number] ####[facility] ([facility])[address] [place] [address] Erythrocyte distribution width (RBC) [Ratio] 13.1 % Normal 11.5-15.0 [facility] Comment on above: Performed By: #### L [id number] ####[facility] ([facility])[address] [place] [address] ERYTHROCYTE MEAN CORPUSCULAR HEMOGLOBIN CONCENTRATION (G/DL) BY AUTOMATED 33.3 g/dL Normal 32.0-35.0 [facility] Comment on above: Performed By: #### L [id number] ####[facility] (BEAKER)[address] [place] [address] Hematocrit (Bld) [Volume fraction] 43.0 % Normal 39.0-55.0 [facility] Comment on above: Performed By: #### L [id number] ####[facility] (BEAKER)[address] [place] [address] Hemoglobin (Bld) [Mass/Vol] 14.3 g/dL Normal 13.0-17.0 [facility] Comment on above: Performed By: #### L [id number] ####[facility] (BEAKER)[address] [place] [address] Immature granulocytes (Bld) [#/Vol] 0.03 10*3/uL Normal 0.00-0.20 [facility] Comment on above: Performed By: #### L [id number] ####[facility] (BEAKER)[address] [place] [address] Immature granulocytes/100 WBC (Bld) 0.5 % Normal 0.0-1.0 [facility] Comment on above: Performed By: #### L [id number] ####[facility] (BEAKER)[address] [place] [address] Lymphocytes (Bld) [#/Vol] 2.46 10*3/uL Normal 1.20-4.00 [facility] Comment on above: Performed By: #### L [id number] ####[facility] (BEAKER)[address] [place] [address] Lymphocytes/100 WBC (Bld) 38.2 % Normal 20.0-45.0 [facility] Comment on above: Performed By: #### L [id number] ####[facility] (BEAKER)[address] [place] [address] MCH (RBC) [Entitic mass] 30.4 pg Normal 27.0-33.0 [facility] Comment on above: Performed By: #### L [id number] ####[facility] (BEAKER)[address] [place] [address] MCV (RBC) [Entitic vol] 91.3 fL Normal 82.0-98.0 [facility] Comment on above: Performed By: #### L [id number] ####[facility] (BEAKER)[address] [place] [address] Monocytes (Bld) [#/Vol] 0.51 10*3/uL Normal 0.10-1.00 [facility] Comment on above: Performed By: #### L [id number] ####[facility] (BEAKER)[address] [place] [address] Monocytes/100 WBC (Bld) 7.9 % Normal 5.0-12.0 [facility] Comment on above: Performed By: #### L [id number] ####[facility] (BEAKER)[address] [place] [address] Neutrophils (Bld) [#/Vol] 3.30 10*3/uL Normal 1.60-7.60 [facility] Comment on above: Performed By: #### L [id number] ####[facility] ([facility])[address] [place] [address] Neutrophils/100 WBC (Bld) 51.2 % Normal 40.0-72.0 [facility] Comment on above: Performed By: #### L [id number] ####[facility] (BEAKER)[address] [place] [address] NRBC (PER 100 WBCS) BY AUTOMATED COUNT 0.0 % Normal 0 [facility] Comment on above: Performed By: #### L [id number] ####[facility] (BEAKER)[address] [place] [address] PLATELETS (10*3/UL) IN BLOOD AUTOMATED COUNT 281 10*3/uL Normal 150-400 [facility] Comment on above: Performed By: #### L [id number] ####[facility] (BEAKER)[address] [place] [address] RBC (Bld) [#/Vol] 4.71 10*6/uL Normal 4.20-5.70 [facility] Comment on above: Performed By: #### L [id number] ####[facility] ([facility])[address] [address] WBC (Bld) [#/Vol] 6.44 10*3/uL Normal 4.00-10.60 [facility] Comment on above: Performed By: #### L [id number] ####[facility] ([facility])[address] [address] ETHANOLon 04-09-2023 ETHANOL (MG/DL) IN SER/PLAS <10 Normal [facility] Comment on above: Result Comment: No E thanol detected Performed By: #### L [id number] ####[facility] ([facility])[address] [address] ETHANOL CALCULATED (%) Normal [facility] Comment on above: Performed By: #### L [id number] ####[facility] ([facility])[address] [place] [address] Follow-Upon 04-09-2023 Follow-Up Normal [facility] HEMOGLOBIN A1Con 04-09-2023 Glucose [Mass/Vol] 128 mg/dL Normal [facility] Comment on above: Performed By: #### L [id number] ####[facility] ([facility])[address] [place] [address] HbA1c (Bld) [Mass fraction] 6.1 % High 4.0-6.0 [facility] Comment on above: Performed By: #### L [id number] ####[facility] ([facility])[address] [place] [address] HPon 04-09-2023 HP Normal [facility] Labon 04-09-2023 Lab [id number] Gui Ortiz 1955 M Date Provider Department [place] 04/09/2023 2245-[facility] LAB RESOURCE [facility] PR Medical C Family History Family history unknown: Yes Normal [facility] MRSA/MSSA DNA NASALon 2022 MRSA DNA Negative Normal Negative [facility] Comment on above: Order Comment: Testi ng [...] preclude nasal colonization. Performed By: #### L [id number] ####[facility] (BEAKER)[address] [place] [address] MSSA DNA Negative Normal Negative [facility] Comment on above: Order Comment: Testi ng [...] preclude nasal colonization. Performed By: #### L [id number] ####[facility] (BEAKER)[address] [place] [address] Orders Onlyon 04-09-2023 Orders Only [id number] Gui Ortiz 1955 M Date Provider Department Center 04/09/2023 ALE[facility] ANDRE [facility] Family History Family history unknown: Yes Normal [facility] PROTIME-INRon 04-09-2023 INR IN PPP BY COAGULATION ASSAY 1.00 Normal 0.90-1.10 [facility] Comment on above: Result Comment: ACCC P [...] CHEST 1995;108:231S-246S. Performed By: #### L [id number] ####[facility] [place] [address] PROTHROMBIN TIME (PT) IN PPP BY COAGULATION ASSAY 13.2 Seconds Normal 12.3-14.8 [facility] Comment on above: Performed By: #### L [id number] ####[facility] ([facility])[address] [place] [address] TOXICOLOGY PANEL URINEon AMPHETAMINE+METHAM PHETAMINE SCREEN (PRESENCE) IN URINE Negative Normal Negative [facility] Comment on above: Performed By: #### L [id number] ####[facility] ([facility])[address] [facility] [place] [address] BARBITURATES PRESENCE IN URINE BY SCREEN METHOD Negative Normal Negative [facility] Comment on above: Performed By: #### L [id number] ####[facility] ([facility])[address] [facility] [place] [address] Benzodiazepines Ql (U) Negative Normal Negative [facility] Comment on above: Performed By: #### L [id number] ####[facility] ([facility])[address] [facility] [place] [address] CANNABINOID (PRESENCE) IN URINE BY SCREEN METHOD Negative Normal Negative [facility] Comment on above: Performed By: #### L [id number] ####[facility] ([facility])[address] [facility] [place] [address] Cocaine Ql (U) Negative Normal Negative [facility] Comment on above: Performed By: #### L [id number] ####[facility] ([facility])[address] [facility] [place] [address] METHADONE (PRESENCE) IN URINE BY SCREEN METHOD Normal [facility] Comment on above: Result Comment: Meth adone being sent out. Results to follow. Performed By: #### L [id number] ####[facility] ([facility])[address] [place] [address] OPIATES (PRESENCE) IN URINE BY SCREEN METHOD Negative Normal Negative [facility] Comment on above: Performed By: #### L [id number] ####[facility] ([facility])[address] [place] [address] PHENCYCLIDINE PRESENCE IN URINE BY SCREEN METHOD Negative Normal Negative [facility] Comment on above: Performed By: #### L [id number] ####[facility] ([facility])[address] [place] [address] Propoxyphene Screen Ql (U) Negative Normal Negative [facility] Comment on above: Performed By: #### L [id number] ####[facility] ([facility])[address] [place] [address] TRICYCLIC ANTIDEPRESSANTS (PRESENCE) IN URINE Negative Normal Negative [facility] Comment on above: Performed By: #### L [id number] ####[facility] ([facility])[address] [facility] [place] [address] TYPE AND SCREENon 04-09-2023 AB SCREEN Negative Normal [facility] Comment on above: Performed By: #### L [id number] ####[facility], ABO group Nom (Bld) O Normal [facility] Comment on above: Performed By: #### L [id number] ####[facility], RH TYPE IN BLOOD Positive [facility] Comment on above: Performed By: #### L [id number] ####[facility], URINALYSISon 04-09-2023 BILIRUBIN, TOTAL PRESENCE IN URINE Negative Normal Negative [facility] Comment on above: Performed By: #### L [id number] ####[facility] (BEAKER)[address] [place] [address] Clarity (U) Clear Normal Clear [facility] Comment on above: Performed By: #### L [id number] ####[facility] ([facility])[address] [place] [address] Color (U) Yellow Normal Yellow [facility] Comment on above: Performed By: #### L [id number] ####[facility] ([facility])[address] [place] [address] Glucose (U) [Mass/Vol] Negative Normal Negative [facility] Comment on above: Performed By: #### L [id number] ####[facility] ([facility])[address] [place] [address] HEMOGLOBIN PRESENCE IN URINE Small Abnormal Negative [facility] Comment on above: Performed By: #### L [id number] ####[facility] ([facility])[address] [place] [address] Ketones Ql (U) Negative Normal Negative [facility] Comment on above: Performed By: #### L [id number] ####[facility] ([facility])[address] [place] [address] LEUKOCYTE ESTERASE PRESENCE IN URINE BY TEST STRIP Negative Normal Negative [facility] Comment on above: Performed By: #### L [id number] ####[facility] ([facility])[address] [place] [address] NITRITE PRESENCE IN URINE Negative Normal Negative [facility] Comment on above: Performed By: #### L [id number] ####[facility] (BEAKER)[address] [place] [address] pH (U) 6.0 [pH] Normal 5.0-8.0 [facility] Comment on above: Performed By: #### L [id number] ####[facility] (BEAKER)[address] [place] [address] Protein (U) [Mass/Vol] Negative Normal Negative [facility] Comment on above: Performed By: #### L [id number] ####[facility] (BEAKER)[address] [place] [address] Specific gravity (U) [Rel density] 1.012 Low 1.015-1.020 [facility] Comment on above: Performed By: #### L [id number] ####[facility] (BEAKER)[address] [place] [address] URINALYSIS MICROSCOPICon CASTS IN URINE Normal [facility] Comment on above: Performed By: #### L [id number] ####[facility] (BEAKER)[address] [place] [address] CRYSTALS IN URINE Normal [facility] Comment on above: Performed By: #### L [id number] ####[facility] (BEAKER)[address] [place] [address] RBC (#/HPF) IN URINE SEDIMENT 3-5 Abnormal None Seen [facility] Comment on above: Performed By: #### L [id number] ####[facility] (BEAKER)[address] [place] [address] SQUAMOUS EPITHELIAL CELLS (#/HPF) IN URINE SEDIMENT None Seen Normal None Seen, Occasional [facility] Comment on above: Performed By: #### L [id number] ####[facility] (BEAKER)[address] [place] [address] WBC (LEUKOCYTE) (#/HPF) IN URINE SEDIMENT None Seen Normal None Seen [facility] Comment on above: Performed By: #### L [id number] ####[facility] (BEAKER)[address] [place] [address] Documentationon 04-01-2023 Documentation Normal [facility] 30on 03-23-2023 30 Normal [facility] 30 Normal [facility] 30 Normal [facility] [place] ANTI-XA (HEPARIN LEVEL)on HEPARIN UNFRACTIONATED (U/ML) IN PPP BY CHROMOGENIC METHOD <0.10 Invalid Interpretation Code 0.3-0.7 [facility] Comment on above: Order Comment: Check anti-Xa level every 6 hours while on heparin infusion, or per protocol. Result Comment: [place] roxaban and Apixaban will interfere with the anti Xa assay used to monitor UFH and LMWH. Performed By: #### L [id number] ####[facility] ([facility])[address] [place] [address] BASIC METABOLIC PANELon 10-0 Anion gap [Moles/Vol] 11 mmol/L Normal 7-20 [facility] Comment on above: Performed By: #### L [id number] ####[facility] ([facility])[address] [place] [address] Calcium [Mass/Vol] 9.1 mg/dL Normal 8.6-10.3 [facility] Comment on above: Performed By: #### L [id number] ####[facility] ([facility])[address] [place] [address] Chloride [Moles/Vol] 107 mmol/L Normal 98-107 [facility] Comment on above: Performed By: #### L [id number] ####[facility] ([facility])[address] [place] [address] CO2 [Moles/Vol] 23 mmol/L Normal 21-31 [facility] Comment on above: Performed By: #### L [id number] ####[facility] ([facility])[address] [place] [address] Creatinine [Mass/Vol] 0.85 mg/dL Normal 0.70-1.30 [facility] Comment on above: Performed By: #### L [id number] ####[facility] ([facility])[address] [place] [address] GLOMERULAR FILTRATION RATE ML/MIN/1.73 SQ M.PREDICTED 94.1 mL/min/1.73m*2 Normal >60.0 [facility] Comment on above: Result Comment: The [facility]???s estimated glomerular filtration rate (eGFR) will no [...] of individuals. Performed By: #### L [id number] ####[facility] ([facility])[address] [place] [address] Glucose [Mass/Vol] 103 mg/dL High 70-100 [facility] Comment on above: Performed By: #### L [id number] ####[facility] ([facility])[address] [place] [address] Potassium [Moles/Vol] 3.8 mmol/L Normal 3.5-5.1 [facility] Comment on above: Performed By: #### L [id number] ####[facility] ([facility])[address] [place] [address] Sodium [Moles/Vol] 137 mmol/L Normal 136-145 [facility] Comment on above: Performed By: #### L [id number] ####[facility] ([facility])[address] [place] [address] Urea nitrogen [Mass/Vol] 12 mg/dL Normal 7-25 [facility] Comment on above: Performed By: #### L [id number] ####[facility] ([facility])[address] [place] [address] UREA NITROGEN/CREATININ E (MASS RATIO) IN SER/PLAS 14.1 Normal [facility] Comment on above: Performed By: #### L [id number] ####[facility] ([facility])[address] [place] [address] CBCon 03-23-2023 Erythrocyte distribution width (RBC) [Ratio] 13.0 % Normal 11.5-15.0 [facility] Comment on above: Performed By: #### L [id number] ####[facility] ([facility])[address] [address] ERYTHROCYTE MEAN CORPUSCULAR HEMOGLOBIN CONCENTRATION (G/DL) BY AUTOMATED 34.5 g/dL Normal 32.0-35.0 [facility] Comment on above: Performed By: #### L [id number] ####[facility] ([facility])[address] [place] [address] Hematocrit (Bld) [Volume fraction] 41.4 % Normal 39.0-55.0 [facility] Comment on above: Performed By: #### L [id number] ####[facility] ([facility])[address], [place] [address] Hemoglobin (Bld) [Mass/Vol] 14.3 g/dL Normal 13.0-17.0 [facility] Comment on above: Performed By: #### L [id number] ####[facility] ([facility])[address] [place] [address] MCH (RBC) [Entitic mass] 30.4 pg Normal 27.0-33.0 [facility] Comment on above: Performed By: #### L [id number] ####[facility] ([facility])[address] [place] [address] MCV (RBC) [Entitic vol] 87.9 fL Normal 82.0-98.0 [facility] Comment on above: Performed By: #### L [id number] ####[facility] ([facility])[address] [place] [address] PLATELETS (10*3/UL) IN BLOOD AUTOMATED COUNT 243 10*3/uL Normal 150-400 [facility] Comment on above: Performed By: #### L [id number] ####[facility] ([facility])[address] [place] [address] RBC (Bld) [#/Vol] 4.71 10*6/uL Normal 4.20-5.70 [facility] Comment on above: Performed By: #### L [id number] ####[facility] ([facility])[address] [place] [address] WBC (Bld) [#/Vol] 6.84 10*3/uL Normal 4.00-10.60 [facility] Comment on above: Performed By: #### L [id number] ####[facility] ([facility])[address] [place] [address] CT HEAD WO IV CONTRASTon CT HEAD WO IV CONTRAST Normal [facility] CTA CHEST W AND/OR WO IV CON TRASTon 03-23-2023 CTA CHEST W AND/OR WO IV CONTRAST Normal [facility] DSon 03-23-2023 DS Normal [facility] 30on 03-22-2023 30 Normal [facility] 30 Normal [facility] ANESon 03-22-2023 ANES Normal [facility] APTTon 03-22-2023 ACTIVATED PARTIAL THROMBOPLASTIN TIME IN PPP BY COAGULATION ASSAY 36.2 Seconds High 25.0-35.0 [facility] Comment on above: Order Comment: Basel ine aPTT before initiating heparin infusion. Result Comment: Clin ical significance of the APTT is questionable in the presence of heparin. Performed By: #### L [id number] ####[facility] ([facility])[address] [place] [address] BASIC METABOLIC PANELon 10-0 Anion gap [Moles/Vol] 9 mmol/L Normal 7-20 [facility] Comment on above: Performed By: #### L [id number] ####[facility] ([facility])[address] [place] [address] Calcium [Mass/Vol] 8.9 mg/dL Normal 8.6-10.3 [facility] Comment on above: Performed By: #### L [id number] ####[facility] ([facility])[address] [place] [address] Chloride [Moles/Vol] 111 mmol/L High 98-107 [facility] Comment on above: Performed By: #### L [id number] ####[facility] ([facility])[address] [facility] [place] [address] CO2 [Moles/Vol] 22 mmol/L Normal 21-31 [facility] Comment on above: Performed By: #### L [id number] ####[facility] ([facility])[address] [place] [address] Creatinine [Mass/Vol] 0.79 mg/dL Normal 0.70-1.30 [facility] Comment on above: Performed By: #### L [id number] ####[facility] ([facility])[address] [place] [address] GLOMERULAR FILTRATION RATE ML/MIN/1.73 SQ M.PREDICTED 96.2 mL/min/1.73m*2 Normal >60.0 [facility] Comment on above: Result Comment: The [facility]???s estimated glomerular filtration rate (eGFR) will no [...] of individuals. Performed By: #### L [id number] ####[facility] ([facility])[address] [place] [address] Glucose [Mass/Vol] 112 mg/dL High 70-100 [facility] Comment on above: Performed By: #### L [id number] ####[facility] ([facility])[address] [place] [address] Potassium [Moles/Vol] 3.9 mmol/L Normal 3.5-5.1 [facility] Comment on above: Performed By: #### L [id number] ####[facility] ([facility])[address] [place] [address] Sodium [Moles/Vol] 138 mmol/L Normal 136-145 [facility] Comment on above: Performed By: #### L [id number] ####[facility] ([facility])[address] [place] [address] Urea nitrogen [Mass/Vol] 12 mg/dL Normal 7-25 [facility] Comment on above: Performed By: #### L [id number] ####[facility] ([facility])[address] [place] [address] UREA NITROGEN/CREATININ E (MASS RATIO) IN SER/PLAS 15.2 Normal [facility] Comment on above: Performed By: #### L [id number] ####[facility] ([facility])[address] [address] CBCon 03-22-2023 Erythrocyte distribution width (RBC) [Ratio] 13.2 % Normal 11.5-15.0 [facility] Comment on above: Performed By: #### L [id number] ####[facility] ([facility])[address] [address] ERYTHROCYTE MEAN CORPUSCULAR HEMOGLOBIN CONCENTRATION (G/DL) BY AUTOMATED 33.7 g/dL Normal 32.0-35.0 [facility] Comment on above: Performed By: #### L [id number] ####[facility] ([facility])[address] [place] [address] Hematocrit (Bld) [Volume fraction] 40.3 % Normal 39.0-55.0 [facility] Comment on above: Performed By: #### L [id number] ####[facility] ([facility])[address], [place] [address] Hemoglobin (Bld) [Mass/Vol] 13.6 g/dL Normal 13.0-17.0 [facility] Comment on above: Performed By: #### L [id number] ####[facility] ([facility])[address], [place] [address] MCH (RBC) [Entitic mass] 30.5 pg Normal 27.0-33.0 [facility] Comment on above: Performed By: #### L [id number] ####[facility] ([facility])[address] [place] [address] MCV (RBC) [Entitic vol] 90.4 fL Normal 82.0-98.0 [facility] Comment on above: Performed By: #### L [id number] ####[facility] ([facility])[address] [place] [address] PLATELETS (10*3/UL) IN BLOOD AUTOMATED COUNT 241 10*3/uL Normal 150-400 [facility] Comment on above: Performed By: #### L [id number] ####[facility] ([facility])[address] [place] [address] RBC (Bld) [#/Vol] 4.46 10*6/uL Normal 4.20-5.70 [facility] Comment on above: Performed By: #### L [id number] ####[facility] ([facility])[address] [place] [address] WBC (Bld) [#/Vol] 6.03 10*3/uL Normal 4.00-10.60 [facility] Comment on above: Performed By: #### L [id number] ####[facility] ([facility])[address] [place] [address] CONSULTon 03-22-2023 CONSULT Normal [facility] CONSULT Normal [facility] CT CHEST WO IV CONTRASTon CT CHEST WO IV CONTRAST Normal [facility] HEMOGLOBIN A1Con 03-22-2023 Glucose [Mass/Vol] 126 mg/dL Normal [facility] Comment on above: Performed By: #### L [id number] ####[facility] ([facility])[address] [place] [address] HbA1c (Bld) [Mass fraction] 6.0 % Normal 4.0-6.0 [facility] Comment on above: Performed By: #### L [id number] ####[facility] ([facility])[address] [place] [address] HPon 03-22-2023 HP H&P reviewed. The pa tient was examined and there are no changes to the H&P. Will proceed with coronary angiogram for chest pain and elevated high sensitivity troponin. Normal [facility] LIPID PANELon 03-22-2023 CHOL/HDL 4.9 mg/dL Normal [facility] Comment on above: Performed By: #### L [id number] ####[facility] ([facility])[address] [place] [address] Cholesterol [Mass/Vol] 138 mg/dL Normal 120-200 [facility] Comment on above: Performed By: #### L [id number] ####[facility] ([facility])[address] [facility] [address] Magnesium [Mass/Vol] 107 mg/dL Normal 40-149 [facility] Comment on above: Result Comment: TRIG LYCERIDE REFERENCE RANGE:20 YEARS AND OLDER CARDIOVASCULAR RISKLESS THAN 150 mg/dL LOW [id number] TO 199 mg/dL BORDERLINE [id number] mg/dL AND GREATER HIGH RISK Performed By: #### L [id number] ####[facility] ([facility])[address] [place] [address] Magnesium [Mass/Vol] 89 mg/dL Normal 0-160 [facility] Comment on above: Performed By: #### L [id number] ####[facility] ([facility])[address] [place] [address] Magnesium [Mass/Vol] 28 mg/dL Normal 23-92 [facility] Comment on above: Performed By: #### L [id number] ####[facility] ([facility])[address] [place] [address] NON HDL CHOL. (LDL+VLDL) 110 Normal [facility] Comment on above: Performed By: #### L [id number] ####[facility] ([facility])[address] [place] [address] TOTAL VLDL-C 21 mg/dL Normal 0-40 [facility] Comment on above: Performed By: #### L [id number] ####[facility] ([facility])[address] [place] [address] MRSA/MSSA DNA NASALon 2022 MRSA DNA Negative Normal Negative [facility] Comment on above: Order Comment: Testi ng [...] preclude nasal colonization. Performed By: #### L [id number] ####[facility] ([facility])[address] [place] [address] MSSA DNA Negative Normal Negative [facility] Comment on above: Order Comment: Testi ng [...] preclude nasal colonization. Performed By: #### L [id number] ####[facility] ([facility])[address] [place] [address] TROPONIN Ion 03-22-2023 Troponin I.cardiac [Mass/Vol] 0.03 ng/mL Normal 0.00-0.04 [facility] Comment on above: Performed By: #### L [id number] ####[facility] ([facility])[address] [place] [address] Troponin I.cardiac [Mass/Vol] 0.04 ng/mL Normal 0.00-0.04 [facility] Comment on above: Performed By: #### L [id number] ####[facility] ([facility])[address] [place] [address] TSH3 REFLEX TO FT4on 023 THYROTROPIN (MIU/L) IN SER/PLAS BY DETECTION LIMIT <= 0.05 MIU/L 2.07 mIU/L Normal 0.34-5.60 [facility] Comment on above: Performed By: #### L [id number] ####[facility] ([facility])[address] [place] [address] URINALYSISon 03-22-2023 BILIRUBIN, TOTAL PRESENCE IN URINE Negative Normal Negative [facility] Comment on above: Performed By: #### L [id number] ####[facility] ([facility])[address] [place] [address] Clarity (U) Clear Normal Clear [facility] Comment on above: Performed By: #### L [id number] ####[facility] ([facility])[address] [place] [address] Color (U) Yellow Normal Yellow [facility] Comment on above: Performed By: #### L [id number] ####[facility] ([facility])[address] [place] [address] Glucose (U) [Mass/Vol] Negative Normal Negative [facility] Comment on above: Performed By: #### L [id number] ####[facility] ([facility])[address] [place] [address] HEMOGLOBIN PRESENCE IN URINE Small Abnormal Negative [facility] Comment on above: Performed By: #### L [id number] ####[facility] ([facility])[address] [place] [address] Ketones Ql (U) Negative Normal Negative [facility] Comment on above: Performed By: #### L [id number] ####[facility] ([facility])[address] [place] [address] LEUKOCYTE ESTERASE PRESENCE IN URINE BY TEST STRIP Negative Normal Negative [facility] Comment on above: Performed By: #### L [id number] ####[facility] ([facility])[address] [place] [address] NITRITE PRESENCE IN URINE Negative Normal Negative [facility] Comment on above: Performed By: #### L [id number] ####[facility] ([facility])[address] [place] [address] pH (U) 6.0 [pH] Normal 5.0-8.0 [facility] Comment on above: Performed By: #### L [id number] ####[facility] ([facility])[address] [place] [address] Protein (U) [Mass/Vol] Negative Normal Negative [facility] Comment on above: Performed By: #### L [id number] ####[facility] ([facility])[address] [place] [address] Specific gravity (U) [Rel density] 1.049 High 1.015-1.020 [facility] Comment on above: Performed By: #### L [id number] ####[facility] ([facility])[address] [place] [address] URINALYSIS MICROSCOPICon CASTS IN URINE Normal [facility] Comment on above: Performed By: #### L [id number] ####[facility] ([facility])[address] [place] [address] CRYSTALS IN URINE Normal [facility] Comment on above: Performed By: #### L [id number] ####[facility] ([facility])[address] [place] [address] RBC (#/HPF) IN URINE SEDIMENT 6-10 Abnormal None Seen [facility] Comment on above: Performed By: #### L [id number] ####[facility] ([facility])[address] [place] [address] SQUAMOUS EPITHELIAL CELLS (#/HPF) IN URINE SEDIMENT Few Abnormal None Seen, Occasional [facility] Comment on above: Performed By: #### L [id number] ####[facility] ([facility])[address] [place] [address] WBC (LEUKOCYTE) (#/HPF) IN URINE SEDIMENT None Seen Normal None Seen [facility] Comment on above: Performed By: #### L [id number] ####[facility] ([facility])[address] [place] [address] 30on 03-21-2023 30 Normal [facility] D-DIMER, QUANTITATIVEon FIBRIN D-DIMER (UG/L FEU) IN PLATELET POOR PLASMA 0.36 mcg/mL FEU Normal 0.27-0.49 [facility] Comment on above: Order Comment: D-Dim er values of less than 0.50 ug/ml (FEU) are considered to be a negative predictor of thrombosis. However, the D-Dimer result should be used in conjunction with pretest probability and should not be used alone to diagnose a thrombotic event. 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 [address] Additional Instructions: w/PSA Patient Education Documentation recorded [...] Protein Urine Dipstick: Negative (01/29/23 14:37:00) Specific [place] Urine Dipstick: 1.025 (01/29/23 14:37:00) Urine Appearance Urine Dipstick: Clear (01/29/23 14:37:00) Urine Color Urine Dipstick: Yellow (01/29/23 14:37:00) pH Urine Dips (more content not included)... Normal [facility] Comment on above: Result Comment: Elec [...] by: GARCIA GALLEGOS Date: 2022-08-04 17:12 Normal [facility] CT LUNG CANCER SCREENINGon 0 [...] DAVID EL Date: 2022-07-26 07:42 Normal [facility] INSULINon 07-26-2022 Insulin 4.0 uIU/mL Normal 2.6-24.9 [facility] Comment on above: Performed By: #### I NSULIN #### [facility] [address] [place] [address] Dr. Rehana Martinez CBC AUTO DIFFon 07-25-2022 BASO # 0.0 103/ul Normal 0.0-0.1 [facility] Comment on above: Performed By: #### C BC #### [facility] [address] [place] [address] Dr. Rehana Martinez Basophils/100 WBC (Bld) 0.2 % Normal 0.2-2.0 [facility] Comment on above: Performed By: #### C BC #### [facility] [address] [place] [address] Dr. Rehana Martinez EO # 0.1 103/ul Normal 0.0-0.7 [facility] Comment on above: Performed By: #### C BC #### [facility] [address] [place] [address] Dr. Rehana Martinez Eosinophils/100 WBC (Bld) 0.5 % Critically low 0.9-7.0 [facility] Comment on above: Performed By: #### C BC #### [facility] [address] [place] [address] Dr. Rehana Martinez Erythrocyte distribution width (RBC) [Ratio] 13.6 % Normal 11.0-15.0 [facility] Comment on above: Performed By: #### C BC #### [facility] [address] [place] [address] Dr. Rehana Martinez Hematocrit (Bld) [Volume fraction] 45.6 % Normal 42.0-54.0 [facility] Comment on above: Performed By: #### C BC #### [facility] [address] [place] [address] Dr. Rehana Martinez Hemoglobin (Bld) [Mass/Vol] 15.1 g/dL Normal 14.0-18.0 [facility] Comment on above: Performed By: #### C BC #### [facility] [address] [place] [address] Dr. Rehana Martinez IG # 0.04 10e3/ul Critically high 0.00-0.03 [facility] Comment on above: Performed By: #### C BC #### [facility] [address] [place] [address] Dr. Rehana Martinez IG % 0.4 % Normal 0.0-0.5 [facility] Comment on above: Performed By: #### C BC #### [facility] [address] [place] [address] Dr. Rehana Martinez LYMPH # 1.7 103/ul Normal 1.2-3.8 [facility] Comment on above: Performed By: #### C BC #### [facility] [address] [place] [address] Dr. Rehana Martinez Lymphocytes/100 WBC (Bld) 17.9 % Critically low 20.5-60.0 [facility] Comment on above: Performed By: #### C BC #### [facility] [address] [place] [address] Dr. Rehana Martinez MANUAL DIFF REQ NO Normal [facility] Comment on above: Performed By: #### C BC #### [facility] [address] [address] [address] Rehana Martinez MCH (RBC) [Entitic mass] 30.8 pg Normal 25.9-34.0 [facility] Comment on above: Performed By: #### C BC #### [facility] [address] [place] [address] Dr. Rehana Martinez MCHC (RBC) [Mass/Vol] 33.1 g/dL Normal 29.9-35.2 [facility] Comment on above: Performed By: #### C BC #### [facility] [facility] [address] [place] [address] Dr. Rehana Martinez MCV (RBC) [Entitic vol] 92.9 fL Normal 80.0-94.0 [facility] Comment on above: Performed By: #### C BC #### [facility] [address] [place] [address] Dr. Rehana Martinez MONO # 1.1 103/ul Critically high 0.3-0.8 [facility] Comment on above: Performed By: #### C BC #### [facility] [address] [place] [address] Dr. Rehana Martinez Monocytes/100 WBC (Bld) 11.2 % Normal 1.7-12.0 [facility] Comment on above: Performed By: #### C BC #### [facility] [address] [place] [address] Dr. Rehana Martinez NEUT # 6.7 103/ul Critically high 1.4-6.5 [facility] Comment on above: Performed By: #### C BC #### [facility] [address] [place] [address] Dr. Rehana Martinez Neutrophils/100 WBC (Bld) 69.8 % Normal 43.0-75.0 [facility] Comment on above: Performed By: #### C BC #### [facility] [address] [place] [address] Dr. Rehana Martinez Platelet mean volume (Bld) [Entitic vol] 8.7 fL Critically low 9.5-13.5 [facility] Comment on above: Performed By: #### C BC #### [facility] [address] [address] [address] Rehana Martinez PLT 226 103/ul Normal 150-450 [facility] Comment on above: Performed By: #### C BC #### [facility] [address] [address] [address] Rehana Martinez RBC 4.91 106/ul Normal 4.70-6.10 [facility] Comment on above: Performed By: #### C BC #### [facility] [address] [address] [address] Rehana Martinez WBC 9.6 103/ul Normal 4.0-11.0 [facility] Comment on above: Performed By: #### C BC #### [facility] [address] [address] [address] Rehana Martinez FREE THYROXINE INDEX T7on FTI 3.37 Normal 1.30-4.50 [facility] Comment on above: Performed By: #### L IPID, CMP, TSH, URIC, T7 ####[facility] [address] [address]Dr. Rehana Martinez T3U 37.0 % Normal 33.0-40.0 [facility] Comment on above: Performed By: #### L IPID, CMP, TSH, URIC, T7 ####[facility] [address] [id number]. Rehana Martinez T4 [Mass/Vol] 9.10 ug/dL Normal 4.50-12.10 [facility] Comment on above: Performed By: #### L IPID, CMP, TSH, URIC, T7 ####[facility] [address] [id number]. Rehana Martinez GLYCOHEMOGLOBIN A1Con 2022 ADA RECOMMENDATION SEE BELOW Normal The [facility] Comment on above: Result Comment: ADA RECOMMENDED LIMIT 4.0 - 6.0 ADA THERAPEUTIC TARGET < 7.0 ACTION SUGGESTED > 7.0 Performed By: #### A 1C #### [facility] [address] [place] [address] Dr. Rehana Martinez Glucose [Mass/Vol] 128 mg/dL Normal [facility] Comment on above: Performed By: #### A 1C #### [facility] [address] [place], [place] [address] Dr. Rehana Martinez HbA1c (Bld) [Mass fraction] 6.1 % Normal 4.5-6.2 [facility] Comment on above: Performed By: #### A 1C #### [facility] [address] [place], [place] [address] Dr. Rehana Martinez LIPID PROFILEon 07-25-2022 CHOL-HDL RATIO NORM SEE BELOW Normal [facility] Comment on above: Result Comment: 3.3 - 4.4 LOW RISK 4.4 - 7.1 AVERAGE RISK 7.1 - 11.0 MODERATE RISK >11.0 HIGH RISK Performed By: #### L IPID, CMP, TSH, URIC, T7 ####[facility] [address] [id number]. Rehana Martinez Cholesterol [Mass/Vol] 137 mg/dL Normal <=200 [facility] Comment on above: Performed By: #### L IPID, CMP, TSH, URIC, T7 ####[facility] [address] [id number]. Rehana Martinez Cholesterol in HDL [Mass/Vol] 44 mg/dL Normal 40-60 [facility] Comment on above: Performed By: #### L IPID, CMP, TSH, URIC, T7 ####[facility] [address] [id number]. Rehana Martinez Cholesterol in LDL [Mass/Vol] 75.6 mg/dL Normal [facility] Comment on above: Performed By: #### L IPID, CMP, TSH, URIC, T7 ####[facility] [address] [id number]. Rehana Martinez Cholesterol.total/ Cholesterol in HDL [Mass ratio] 3.1 {ratio} Normal [facility] Comment on above: Performed By: #### L IPID, CMP, TSH, URIC, T7 ####[facility] [address] [id number]. Rehana Martinez HDL NORMAL > or = 60 mg/dl - LO W CARDIOVASCULAR RISK <40 mg/dl - HIGH CARDIOVASCULAR RISK Normal [facility] Comment on above: Performed By: #### L IPID, CMP, TSH, URIC, T7 ####[facility] [address] [address]Dr. Rehana Martinez LDL CALC NORMAL SEE BELOW Normal [facility] Comment on above: Result Comment: <100 mg/dl OPTIMAL 100 - 129 mg/dl NEAR OR ABOVE OPTIMAL 130 - 159 mg/dl BORDERLINE HIGH 160 - 189 mg/dl HIGH >190 mg/dl VERY HIGH Performed By: #### L IPID, CMP, TSH, URIC, T7 ####[facility] [address] [address]Dr. Rehana Martinez Triglyceride [Mass/Vol] 87 mg/dL Normal <=150 [facility] Comment on above: Performed By: #### L IPID, CMP, TSH, URIC, T7 ####[facility] [address] [address]Dr. Rehana Martinez VLDL CALC 17.4 mg/dL Normal [facility] Comment on above: Performed By: #### L IPID, CMP, TSH, URIC, T7 ####[facility] [address] [address]Dr. Rehana Martinez PROF 14(COMP METB)on 023 Albumin [Mass/Vol] 3.3 g/dL Critically low 3.4-5.0 [facility] Comment on above: Performed By: #### L IPID, CMP, TSH, URIC, T7 ####[facility] [address] [address]Dr. Rehana Martinez Albumin/Globulin [Mass ratio] 0.9 {ratio} Normal [facility] Comment on above: Performed By: #### L IPID, CMP, TSH, URIC, T7 ####[facility] [address] [address]Dr. Rehana Martinez ALP [Catalytic activity/Vol] 105 U/L Normal 46-116 [facility] Comment on above: Performed By: #### L IPID, CMP, TSH, URIC, T7 ####[facility] [address] [address]Dr. Rehana Martinez ALT [Catalytic activity/Vol] 16 U/L Normal 16-63 [facility] Comment on above: Performed By: #### L IPID, CMP, TSH, URIC, T7 ####[facility] [address] [address]Dr. Rehana Martinez Anion gap [Moles/Vol] 11.8 mmol/L Normal [facility] Comment on above: Performed By: #### L IPID, CMP, TSH, URIC, T7 ####[facility] [address] [address]Dr. Rehana Martinez AST [Catalytic activity/Vol] 16 U/L Normal 15-37 [facility] Comment on above: Performed By: #### L IPID, CMP, TSH, URIC, T7 ####[facility] [address] [place], [place] [address]Dr. Rehana Martinez Bilirubin [Mass/Vol] 0.6 mg/dL Normal 0.2-1.0 [facility] Comment on above: Performed By: #### L IPID, CMP, TSH, URIC, T7 ####[facility] [address] [place], [place] [address]Dr. Rehana Martinez Calcium [Mass/Vol] 9.1 mg/dL Normal 8.5-10.1 [facility] Comment on above: Performed By: #### L IPID, CMP, TSH, URIC, T7 ####[facility] [address] [place], [place] [address]Dr. Rehana Martinez Chloride [Moles/Vol] 103 mmol/L Normal 98-107 [facility] Comment on above: Performed By: #### L IPID, CMP, TSH, URIC, T7 ####[facility] [address] [place], [place] [address]Dr. Rehana Martinez CO2 [Moles/Vol] 26.0 mmol/L Normal 21.0-32.0 [facility] Comment on above: Performed By: #### L IPID, CMP, TSH, URIC, T7 ####[facility] [address] [address]Dr. Rehana Martinez Creatinine [Mass/Vol] 0.94 mg/dL Normal 0.70-1.30 [facility] Comment on above: Performed By: #### L IPID, CMP, TSH, URIC, T7 ####[facility] [address] [address]Dr. Rehana Martinez EGFR-AF BRAZILIAN >60 Normal >=60 [facility] Comment on above: Performed By: #### L IPID, CMP, TSH, URIC, T7 ####[facility] [address] [address]Dr. Rehana Martinez EGFR-NON AF BRAZILIAN >60 Normal >=60 [facility] Comment on above: Performed By: #### L IPID, CMP, TSH, URIC, T7 ####[facility] [address] [address]Dr. Rehana Martinez Globulin (S) [Mass/Vol] 3.8 g/dL Normal [facility] Comment on above: Performed By: #### L IPID, CMP, TSH, URIC, T7 ####[facility] [address] [place], [place] [address]Dr. Rehana Martinez Glucose [Mass/Vol] 109 mg/dL Critically high 74-106 [facility] Comment on above: Performed By: #### L IPID, CMP, TSH, URIC, T7 ####[facility] [address] [place], [place] [address]Dr. Rehana Martinez Potassium [Moles/Vol] 3.8 mmol/L Normal 3.5-5.1 [facility] Comment on above: Performed By: #### L IPID, CMP, TSH, URIC, T7 ####[facility] [address] [place], [place] [address]Dr. Rehana Martinez Protein [Mass/Vol] 7.1 g/dL Normal 6.4-8.2 [facility] Comment on above: Performed By: #### L IPID, CMP, TSH, URIC, T7 ####[facility] [address] [place], [place] [address]Dr. Floriirene Juan Sodium [Moles/Vol] 137 mmol/L Normal 136-[address] [facility] Comment on above: Performed By: #### L IPID, CMP, TSH, URIC, T7 ####[facility] [address] [place], [place] [address]Ix. Floriirene Juan Urea nitrogen [Mass/Vol] 17.0 mg/dL Normal 7.0-18.0 [facility] Comment on above: Performed By: #### L IPID, CMP, TSH, URIC, T7 ####[facility] [address] [id number]. Rehana Martinez Urea nitrogen/Creatinin e [Mass ratio] 18.1 mg/mg Normal [facility] Comment on above: Performed By: #### L IPID, CMP, TSH, URIC, T7 ####[facility] [address] [id number]. Rehana Martinez TSHon 07-25-2022 TSH 1.619 uIU/mL Normal 0.358-3.740 [facility] Comment on above: Performed By: #### L IPID, CMP, TSH, URIC, T7 ####[facility] [address] [id number]. Rehana Martinez URIC ACID SERUMon 07-25-2022 Urate [Mass/Vol] 5.7 mg/dL Normal 3.5-7.2 [facility] Comment on above: Performed By: #### L IPID, CMP, TSH, URIC, T7 #### [facility] [address] [id number] Rehana Martinez UroVys[facility] Fish and Urine Cyt o ([facility])on 04-06-2022 UVFISH & UC Diagnosis Info Invalid Interpretation Code [facility] Comment on above: Result Comment: A:Ur [...] on: 03/29/2022 10:51:08 Performed By: #### 1 [id number] ####[facility] [address] [place] [address] Patient Educationon 03-27-20 Patient Education Urology Benign [...] Follow these instructions at home: ? Take itpw-ykn-ywsnevc and prescription medicines only as told by [...] You d (more content not included)... Normal [facility] Urology Office/Clinic Noteon 03-27-2022 Urology Office/Clinic [...] Urology [address], [place] [address]- Additional Instructions: 6 mos PSA free & [...] Social Hist (more content not included)... Normal [facility] Comment on above: Result Comment: Elec tronically Signed By: Casper RAUSCH MD\.br\Date and Time Signed: 03/27/22 10:34 EDT\.br\Electronically Co-Signed By: Inga Woodruff\Date and Time Co-Signed: 03/27/22 10:32 EDT Coding Summary.on 03-22-2022 Coding Summary. [id number] Gh0bWw+ PGhlYWQ+YR3LAXYlN36fmSXgdE1 LS1rQTH0WOYPSTGVYTA6QSW4qwA Z4NBfnL9PtoiFo ZdjhvKJaCD67UMb1JFH2gLthUUb uoJ4xiIUwJ7p9DjIsQL01oP43ON dnPYFiHpO3JhRchwluzROn H4ctPuTylFJsSdl+PHRhYmxlIHd sMEFgPCfwXWZnCdSjnEwfBK5cOx 9yZGVyLWNvbGxhcHNlOiBj q9keHVYnVYwgVP2coRhlF0FgiDD 8LMHxp1e1Sg55sZE+FVSfFBR8cA jhKZfbv556JrAat3rpWHS6 vDNzMKoeZWF6Q01ga5O9KVGoTPQ pVCP1pDN1kT7kmGygvrzwQ2PygB TzMnO8FWQ3kWDcwI8oyHsm bxslkJ1tVcl+U44MWF4ETPLQSE1 FEup6G6HsJzkldQJ+XJ08QHLqYY 38bSZfzAXit0psfKl1ZqZj PKUwIMT8lYasWCqnf7SrBIGtG80 txMTbk1H9HKOfxBmboIObEfLpjT V8oU6fMXkbjiuxt1uyvsgn Leptb1sfgo28cB08O79qSOghGRR mJQL1EKThLRTjcLlwbh3uwW9vTm 8+NKvpk2bkk7agxVo5QsHg JUWgipYhvFluRRK3z5RaYa80Q2U jzOhma9NqWee6bi37pHPxu0U2yN T3RTgrBETrcN2xMGekJuW7 SYLdUxRyyI24gUApEIszXh7onGg xpYglDL7xXBKjiytjWBGixX3zNJ XbhPEliUjwIC9sMGGwggdp e241RlBsZYM2ZUSazNHcS8PrfM8 tXtYiLVEuPOEdD9KgoEWcSYggL5 74WIkjTeD1QCXrhjTgI8Mt NOCvbIcaUrI2x0A8Qy7Tl5Nbyyn fJID2NCzyTBSzQiK9SyPnNsG3W3 PnTrb0NDXceHjoDY9fK0Od KHSlmxxpivhtvJS0UMEsGWIneN1 0jTNmAHrmBt2tf1M6q200SHUmQK VmgM80Bc3nsUmdMKJyqERY xM7ybtfmk5dbdcmsWzDfFFYpVAx 9XDl7YCZqjSnbCbVyNYX1VoZ1OO S8xXNlaD4unThlpwrvbY6r Oyc+Z08qcB4sNTO8FXV3jcpvQWW phvCeAW19UE80G5IfQcwprGDtgE U+OCKoawXjcDjgQP2sLgUd a4xzc8BrMKxlQ6VgHZBsWVpjZrg 0HZLvZJF8zLH6iO1mKHYfPCcse5 E2mMK7K6CzkaYpjo2fj4rq ALMvCSvdP67hdVDaw3K0YNGskHJ 1VJQnkEoaGjZibB40Tna+PGNvbG fyv2EuWtrkj9msw6lkmEj8 KwIdNUYbyhRdmBlyJRC2h9GbFg1 7L84bAHqkUWCaGHYiWVDxPFLivG uhwd0udE0zVz3+PGNvbCB3 rSB3tU5eAYWaBrU9NHqcH303CcC tkFGyQguws3dsq6fwtYq9LfCvXM DdcjEquGqsADU9n8ZrGd48 G99nFHeiEGJxECLdPFKgBTBswQc cal7yyQ8aNs9+MZ1ky0qhvs10pE 48dHI+KXKrCVP5mOgmUPvr XBXtkP6cEGizHiF2FEJdEyPlwB7 7uCSiQTelNw0unCaffBubZK8tNG Itjprlb834XkHvi2swHEAo aBAaYGjvNAT7P71rw0Q4SILkMFC nKJG0gBZ4yP7fuBvvehaepISpjL xnrrYmbBhaZHodCDzyU677 IHRvcDsnPlBhdGllbnQgTmFtZTo 5V1YxQya7GEHnzLozJS5nvSZbPT wvGz9beBqvoTjmTR1nGZVl syxjm107BdXrk1avXIApuZVeZUv bNZI6Q49ka1V1BYDrEYWpYSH4iE Q1fE9fvWciecmbfKFhfEjj qpFukBkdNKhhYNqpL440VFMtwPh sGkOodmWdIVPzyFC9BB10MV95xV Ajp9M5tXK1S0PgDJOrwavt qslkgDO0IMPvCFQgkB84Ic7nePx aVs7rEXKtXUI5KLDqvFGnL4ScwW 9qGlCiYYBqIGBtN2JpwYQx OUnwZ804SKfpQvW4LHHyobTgL1I zPUQrnAngSvA7h3Y4Ed2WA9F8RC 48VP55jPKqj2H2oFK0L5Jd BCYstbcxjmvfoMG7QCDlPELiqL5 6Qf7kiHsbEq7kZUJeWMT7SIQmlS HjY6NrbP3pMxHeCAUzCWEg Q1UsjGIsUFqnT773EPizCwN7PKK abgZgM0HnOOQzhKwbVmY2b7F7Ub 7DVQd3WL73MI66yYVxy0D3 nSB1U7KcCPOjhuhgdssjvOL8WTK gYGKebQ81Op5qwRwdGy8nIYRgAG J1PTNrkFNtZ3TsuF2gXkYz PMNqMCRmA4IziKZfVEesY286BEw cIpJ6IRDryvNxK2TyLLUwuDxpOf C7e3W1Pk6PBJZdDW85PDC9 iGZ1YW18TS43W7LxQdpngYHqkYG +PHRhYmxlIHdpZHRoPScxMDAlJy QpnCacJV0qPo8oXSGrHJMd tQcmoZIzNmRjs2mfMFNeOLdfEM0 viZzeQ5AqsAO0EPDdb8v2Nv42S8 9wM3NfrQL+OVCygGE5iTI1 sZ0yVoJuItI8AYqjK313IfAotOV rYjdqg1jph7etjOr5UcE0ROKrym JxyRvhFGP2t8LtDu37F48x IHdpZHRoPSIxNSUiIHZhbGlnbj0 aoW7cGx4+WVUsfGG0bJL0tG3xRt DrBtW8FZkeB648PoPugYXp Weuze0yzq6qhcSr7VoOsLLGotqN pwFkkFYL1k3BsMb28D1KmsHntt1 ZrSsg9yp23rMOsd2C7oRV8 S6TxFANoaxcjuTRysLruSB2bCFG crxsvMWDrdU6yALTsK0l3NtSyUk J6WSkaA6QofqR4RNSyzKXp IEksJEK4J26cb5B0EQOoLKMeBDX 1oGI1aC0gwYxonzkxrPUgeKouru FtmTpoHNiyHKfeE851JPDw hNagJCHvvC5fRYFwnBEuuWwpJE9 tEYTfsrckNvKXMoRlF0ZjZLuPNQ 4gQTwvdGQ+VCSnKJA2ySyf XYguEGZbbI7iUEWqT0v4TrHqXcB 9WRxwL6EtQOWvijnkOi50eC3nBo FxSrS4FFdxY7RrapW5OVEf tJBsBThiBOC7Z28wa9K2VMIqAJW zGRA2rZM9kC1bzPguveklxXEaxM mwgkJcaSgkFYyzLPujF789 ZKEkvIkuRsR5UvAkOgV0JPW0G7Y mQpl4BTDovBveLH6ztJDsEMjmTk 5hiRftmAenNU2zEIHzchbb QWFplQ1uRNHyhIVtrWmgPH7uYIQ haytrz430ZcXoHNR4LFHgkJGdB7 VefQ5oNgEmWSLoBGUfW4Vc eAGmRFljL558RSfgPuL1KIGpdaB dH5MbQDRalQuzZpJ0a4V5Us84GD BZZWFyczwvdGQ+PHRkIHN0 cEzbFZtiGOXryD0uHKCpG4f9SaE kCtD3VVsuA6XrYHWodkjpJt52jQ 9qZyAlUuT0OUzsF3XluhX9 FGEqnBJjCOvhJGD9K98ku4E9PBO wWUQtWQT0gWE4jN9ovRlnbiatxR VmdDsgdmVydGljYWwtYWxp I381ULXhjGvgRc1mfUS9Q8HyLtz 5ULWzgJkfGN0rlYMhMBniDj7lvI ozbFsgMG3yHPGoyfowUDVy dK0xULYqgNCrnDvsSB0cHETgvxe yo320TuVkLVM1NVLtxHYyO4LfhP 4bTkGxJBUnGAOpO7VasRMl RXbxO824COhlWzA6PKCuwfZuR6I iOIFbrSrhImN9h9C2Fj4WyUTaPH GkMZ57VR76PG81N1YbBeno dGFibGU+PHRhYmxlIHdpZHRoPSc dFOSoEpMvcJmhMI9wDz5fATYiBY ZbqIstkGVtUeRhy5elMHKs YEgmDJ8bmJewI4QpsMZ5CHZqj2v 8Oy87P03hH2GqxCF+XIOxrAN5pX R6xO5iSeLoKjB4IVmnY514 KtGjvEGyHxkvi5xgp6meqKb1YyM lMZRairNalMhtOCV5z2AaJa65P8 9sIHdpZHRoPSIyMCUiIHZh yTctpd8paI7uMc0+IOCwpGA0jNF 0cL0jVtOlAmZ7VCbyU174KnDtcD XqRrdfE11bK2YldNI+PHRy Hqb3HSVjhHyoUM8dkDIcNEfsKh3 fTXW9QmThWbPzKHdeX2MsFRPwrr fxirsigJL3CRCpQZOqhU72 Cq0deStuGl6gRUYeLDI3KBVilIF bG1VagI4wMaMuLXRjAYQrY7EqnI HqSXrxF908OVsyWyN0GAFg ahWiI9JqDNUxuSjkCqR7t8P7Xt6 NaSnjcAYaEQ9uZeNeZDk6U2HqIm p0KUPdeCymAS5raYAqGEtv Ln9ebYxnaQpgVR4vWECwetbtc86 3RnLov9ocFGRsyKBuBPprYJC9H1 4th0Y1YRHnEHDnZXL3xBL4 gZ8mtOhlauexyJJqoZufyoHxbUx hQLqpFGwhV273RWGjtJfbWbLQNc h4E3IgQfn2WZHhfMqyPP8n sCXfPUkwTl0taHktqCzgHT1hZNE kofdfu746MaIyt0vcYNZymKWtCV arMBG5Y11nk5Y2PMWeVWSe UXJ1nVV2dG3piUdhouclvQXfeKq vccLgsQvkLDlxHGkbO881IDDcdL ypWk9KDtj4R2OpXwc2XZXo qOhkFH0fxHLlGPpdIr2iwAizcHk sAZ1oZSUveckho467AoUul3pgWI OpsDXpXEzwLGS7J95dh7T4 YZJvWCIbVKQ0qVA7fI0dfLsbdxn gbGVmdDsgdmVydGljYWwtYWxpZ2 46IHRvcDsnPlBheWVyOjwv dGQ+AL02ko79N3QuDfjiXzu6KOL aMMV3bTW2qM6bTSHhZWpdf5P1mR D1Z0PilbFzkh2tw3jqSUTc ZTog (more content not included)... Normal [facility] Consent for Procedure/Surger yon 03-21-2022 Consent for Procedure/Surgery [id number]:127 Normal [facility] Consent for Treatmenton Consent for Treatment [id number]:127 Normal [facility] Inpatient Patient Summaryon 03-21-2022 Inpatient Patient Summary [place] [id number] Clinical Summary Person Information Name: GUI ORTIZ SR Age: 67 Years : 1955 Sex: Male PCP: Tyson Jaquez MD Marital Status: Phone: [phone] Race: White Ethnicity: or Language: Divehi Visit Id: Visit 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 (1) Within 5 to 7 days With: Address: When: Casper RAUSCH [address] [place], [place] [id number] [facility] (1) Type Location Start Finish State URO Office Visit [facility] 05/22/2022 11:00 AM 05/22/2022 11:15 AM Confirmed Patient Education Information: [facility] IntraOperative Documentson 1 IntraOperative Documents [id number]:127 Normal [facility] Main OR Intraoperative Recor don 03-21-2022 Main OR Intraoperative Record IntraOp Document Type FTURO Summary Primary Physician: Casper RAUSCH MD Finalized Date/Time: 03/21/22 11:42:35 Pt. Name: GUI ORTIZ SR/Sex: 1955 Male Med Rec #: [id number] Physician: Casper RAUSCH MD Financial #: [id number] Pt. Type: O Room/Bed: / Admit/Disch: 03/21/22 [...] Usha Arevalo Role Performed Surgeon - Primary [employer] Travel Counselor - Primary Scrub - Primary Time In [...] SONIA Cavanaugh RN, Ruthann 03/21/22 11:42 Normal [facility] Main OR Preoperative Recordo n 03-21-2022 Main OR Preoperative Record Holding Area Document Type FTURO Summary Primary Physician: Casper RAUSCH MD Finalized Date/Time: 03/21/22 11:17:09 Pt. Name: GUI ORTIZ SR/Sex: 1955 Male Med Rec #: [id number] Physician: Casper RAUSCH MD Financial #: [id number] Pt. Type: O Room/Bed: / Admit/Disch: 03/21/22 [...] Complaints of Pain: No Skin Integrity Intact, [place], Warm, & Dry Vitals - EU Blood Pressure 100/70 Pulse 59 bpm Respirations 16 br/min SPO2 98 % Additional CHANEL RN Reviewed Yes Specimens Collected Last Modified By: SONIA Cavanaugh RN, Ruthann 03/21/22 11:17:07 General Comments: Temp 36.4 Temporal Finalized By: SONIA Cavanaugh RN, Ruthann Document Signatures Signed By: Adwoa Little LPN 03/21/22 10:38 SONIA Cavanaugh RN, Ruthann 03/21/22 11:17 Normal [facility] Operative Reporton 2 Operative Report Patient: [...] with antibiotic coverage, Follow up arranged. Normal [facility] Comment on above: Result Comment: Elec tronically Signed By: Casper RAUSCH MD\.br\Date and Time Signed: 03/21/22 11:28 EDT Outpatient Surgery Discharge Instructionon 03-21-2022 Outpatient Surgery Discharge Instruction [address] [address] Patient Discharge Instructions PERSON INFORMATION [...] Follow up: With: Address: When: Casper RAUSCH [address] [place] [id number] Business (1) Within 5 to 7 days With: Address: When: Casper RAUSCH [address] [place] [address] Business (1) Type Location Start Finish State [place] [facility] [place] 05/22/2022 11:00 AM 05/22/2022 11:15 AM Confirmed Comment: PATIENT EDUCATION INFORMATION Instructions: ANGEL Fox SR, GUI Valdes, have received the attached patient education materials/instructions and have verbalized understanding: May we do a follow up call? Yes No I was present when discharge instructions were given Patient Signature Date Clinican/Nurse Signature Date You may receive a survey from [employer] asking you to rate your care experience. Your feedback is important and will help us understand what we do well and how we can improve the quality of care we provide to you, your loved ones and our community. It?s an honor to serve you. Thank you for choosing [facility] Patient Educationon 03-21-20 Patient Education Normal [facility] Fish and Urine Cyt o ([facility])on 03-21-2022 [facility] Method of Extraction Voided [facility] Comment on above: Performed By: #### 1 [id number] ####[facility] [id number] [facility] [place] [address] [facility] Number of Jars 1 Invalid Interpretation Code [facility] Comment on above: Performed By: #### 1 [id number] ####[facility] [id number] [facility] [place] [address] [facility] Specimen Urine Normal [facility] Comment on above: Performed By: #### 1 [id number] ####[facility] [id number] [facility] [place] [address] [facility] Type of Service Technical Only Normal [facility] Comment on above: Performed By: #### 1 [id number] ####[facility] [id number] [facility] [place] [address] Lab Reportson 03-15-2022 Lab Reports [id number]:127 Normal [facility] PSA, FREE AND TOTAL RATIOon 03-13-2022 % Free PSA 15.5 % Normal [facility] Comment on above: Result Comment: [...] men. Performed By: #### P SAFREE #### [facility] [address] [place] [id number] [address] Rehana Martinez Prostate specific Ag [Mass/Vol] 4.9 ng/mL Critically high 0.0-4.0 [facility] Comment on above: Result Comment: Arnoldo CHOPRAIA methodology. . According to the [employer], Serum PSA should decrease and [...] disease. Performed By: #### P SAFREE #### [facility] [address] [address] [address] Rehana Martinez PSA, Free 0.76 ng/mL Normal N/A [facility] Comment on above: Result Comment: Arnoldo benedict ECLIA methodology. Performed By: #### P SAFREE #### [facility] [address] [address] [address] Rehana Martinez CREATININEon 12-14-2021 Creatinine [Mass/Vol] 1.01 mg/dL Normal 0.70-1.30 [facility] Comment on above: Performed By: #### C MAXINE #### [facility] [address] [place] [address] Dr. Rehana Martinez EGFR-AF BRAZILIAN >60 Normal >=60 [facility] Comment on above: Performed By: #### C MAXINE #### [facility] [address] [place] [address] Dr. Rehana Martinez EGFR-NON AF BRAZILIAN >60 Normal >=60 [facility] Comment on above: Performed By: #### C MAXINE #### [facility] [address] [place] [address] ABD/PELV W CONon [...] by: BRANDIE RUDD Date: 2021-12-14 11:36 Normal [facility] Vital Signs Date Time Vital Sign Value Performing Clinician Yunier nunez 03-27-2022 10:11-0400 Blood Pressure Location [employer] [facility] 03-27-2022 10:11-0400 Diastolic blood pressure 57 mm[Hg] [employer] [facility] 03-27-2022 10:11-0400 Heart rate 57 /min [employer] [facility] 03-27-2022 10:11-0400 Respiratory rate 16 /min [employer] [facility] 03-27-2022 10:11-0400 Systolic blood pressure 154 mm[Hg] [employer] [facility] 12-05-2021 08:16-0400 Blood Pressure Location Monica Mondragon Jr. [facility] 12-05-2021 08:16-0400 Diastolic blood pressure 84 mm[Hg] Monica Mondragon Jr. [facility] 12-05-2021 08:16-0400 Heart rate 75 /min Monica Mondragon Jr. [facility] 12-05-2021 08:16-0400 Systolic blood pressure 118 mm[Hg] Monica Mondragon Jr. [facility] Encounters Encounter Date Encounter Type Care Provider Facility Start: 02-11-2024 ambulatory ELIZABETH Teague ty:PRICILA [place] Start: 07-18-2023 End: 07-18-2023 ambulatory MAYELINCHARLES WOLFE [facility] Start: 07-08-2023 Evaluation and manag ement of inpatient [facility] Start: 07-07-2023 Evaluation and manag ement of inpatient [facility] Start: 07-06-2023 Evaluation and manag ement of inpatient [facility] Start: 07-05-2023 Evaluation and manag ement of inpatient [facility] Start: 07-05-2023 End: 07-09-2023 Evaluation and management of inpatient [facility] Start: 05-16-2023 ambulatory JUANITA [facility] Start: 05-14-2023 End: 05-14-2023 ambulatory VALENTINA CABRERA [facility] Start: 05-06-2023 Evaluation and manag ement of inpatient ELINA HOLLEY [facility] Start: 05-03-2023 End: 05-04-2023 ambulatory [facility] Start: 05-01-2023 Evaluation and manag ement of inpatient SAEID KIMBALL [facility] Start: 04-30-2023 Evaluation and manag ement of inpatient [facility] Start: 04-30-2023 Evaluation and manag ement of inpatient [facility] Start: 04-30-2023 Evaluation and manag ement of inpatient [facility] Start: 04-29-2023 Evaluation and manag ement of inpatient [facility] Start: 04-27-2023 Evaluation and manag ement of inpatient [facility] Start: 04-26-2023 Evaluation and manag ement of inpatient [facility] Start: 04-25-2023 Evaluation and manag ement of inpatient [facility] Start: 04-25-2023 Evaluation and manag ement of inpatient KAREY Dhaliwal [facility] Start: 04-24-2023 Evaluation and manag ement of inpatient [facility] Start: 04-24-2023 Evaluation and manag ement of inpatient [facility] Start: 04-23-2023 Evaluation and manag ement of inpatient CESAR [facility] Start: 04-23-2023 Evaluation and manag ement of inpatient [facility] Start: 04-23-2023 End: 04-24-2023 Evaluation and management of inpatient [facility] Start: 04-23-2023 Evaluation and manag ement of inpatient KAREY SAWANT [facility] Start: 04-23-2023 Evaluation and manag ement of inpatient KAREY SAWANT [facility] Start: 04-22-2023 Evaluation and manag ement of inpatient [facility] Start: 04-22-2023 Evaluation and manag ement of inpatient [facility] Start: 04-22-2023 Evaluation and manag ement of inpatient KAREY Dhaliwal [facility] Start: 04-22-2023 End: 05-01-2023 Evaluation and management of inpatient [facility] Start: 04-09-2023 End: 04-10-2023 Encounter for preprocedural cardiovascular examination [facility] Start: 04-09-2023 End: 04-10-2023 ambulatory [facility] Start: 04-04-2023 ambulatory [facility] Start: 03-23-2023 Evaluation and manag ement of inpatient KAREY Dhaliwal [facility] Start: 03-23-2023 Evaluation and manag ement of inpatient KAREY Dhaliwal [facility] Start: 03-23-2023 Evaluation and manag ement of inpatient DOMENIC [facility] Start: 03-22-2023 Evaluation and manag ement of inpatient JENNA [facility] Start: 03-22-2023 Evaluation and manag ement of inpatient RODGER [facility] Start: 03-21-2023 End: 03-23-2023 Evaluation and management of inpatient DOMENIC [facility] Start: 01-29-2023 End: 01-30-2023 ambulatory ELIZABETH LINDSAY Facility:[facility] Start: 01-29-2023 End: 01-29-2023 Patient encounter procedure ELIZABETH LINDSAY [facility] Start: 09-11-2022 ambulatory [facility] Start: 09-06-2022 End: 09-07-2022 ambulatory [facility] Start: 09-04-2022 ambulatory [facility] Start: 08-06-2022 End: 08-07-2022 ambulatory [facility] Start: 08-04-2022 End: 08-05-[address] TYSON JAQUEZ . Facility: Start: 07-25-2022 End: 07-26-[address] TYSON JAQUEZ . Facility: Start: 03-27-2022 End: 03-28-2022 ambulatory Casper RAUSCH Facility:[facility] Start: 03-27-2022 End: 03-27-2022 Patient encounter procedure Casper RAUSCH [facility] Start: 03-21-2022 End: 03-22-2022 ambulatory Casper RAUSCH [facility] Start: 03-21-2022 End: 03-21-2022 Patient encounter procedure Casper RAUSCH [facility] Start: 03-12-2022 End: 03-13-[address] CASPER RAUSCH Facility: Start: 02-05-2022 End: 02-05-2022 Patient encounter procedure Monica Mondragon Jr. [facility] Start: 12-14-2021 End: 12-15-2021 ambulatory MONICA MONDRAGON JR Facility: Start: 12-05-2021 End: 12-05-2021 Patient encounter procedure Monica Mondragon Jr. [facility] Procedures Date Procedure Procedure Detail Performing Clinician Start: 05-16-2023 Follow-up visit MICHAEL IE PATRICK Start: 05-14-2023 Follow-up visit MICHAEL IE PATRICK Start: 04-04-2023 Follow-up visit MICHAEL IE PATRICK Start: 09-11-2022 Follow-up visit MICHAEL IE PATRICK Start: 09-04-2022 Follow-up visit MICHAEL IE PATRICK Start: 07-25-[address] FABIOLA JAQUEZ . Comment on above: Performed By: #### P [facility] #### [facility] [address] [place] [address] Dr. Rehana Martinez Start: 03-21-2022 Cystoscopy ELIZABETH JOHNSTON Start: 12-14-[address] FABIOLA JAQUEZ . Comment on above: Performed By: #### P SAD ####[facility] [address] [place], [place] [address]DlStarr Martinez Start: 01-23-2018 Cystoscopy Monica stephen Jr. Comment on above: 07/22/09, 01/23/18 07/22/09, 01/23/18 Immunizations Immunization Date Immunization Notes Care Provider Fa cility 06-20-2021 SARS-CoV-2 (COVID-19 ) mRNA BNT-162b2 vax Casper RAUSCH [facility] 09-13-2020 SARS-CoV-2 (COVID-19 ) Ad26 vaccine, recombinant Monica Mondragon Jr. [facility] 08-22-2020 SARS-CoV-2 (COVID-19 ) Ad26 vaccine, recombinant Monica Mondragon Jr. [facility] NEGATED: Highlighted row has not occurred!12-05-2021 influenza virus vaccine, unspecified formulation Monica Mondragon Jr. [facility] Payers Date Payer Category Payer Medicare [id number] 1960 Unknown [id number] 1955 Unknown [id number] 2.16.84 [id number] 1955 Unknown [id number] 2.16.84 [id number] 1955 Unknown [id number] 2.16.84 [id number] 1955 Unknown [id number] 2.16.84 [id number] 1955 Unknown [id number] 2.16.8 [id number] 1955 Unknown [id number] 2.16.8 [id number] 1955 Unknown [id number] 2.16.8 [id number] 1955 Unknown [id number] 2.16.8 [id number] Social History Date Type Detail Facility Start: 12-05-2021 Tobacco smoking status Heavy t obacco smoker (finding) [facility] Sex Assigned At Male [facility] Functional Status Date Assessment Result Facility 01-29-2023 Functional Status N/A [facility] 03-27-2022 Functional Status N/A [facility] 03-15-2022 Functional Status N/A [facility] 12-05-2021 Functional Status N/A [facility] Clinical Notes 05-23-2021 to 07-18-2023 LaboratoryLaboratoryLaboratoryLaboratory Note Date & Type Note Facility 07-18-2023 Note [facility] 07-18-2023 Note [facility] 07-18-2023 Note Increase imdur to 60 mg daily, decrease coreg back to 3.125 mg bid in light of bradycardia and somewhat labile B/P. [facility] 07-18-2023 Note [facility] 07-18-2023 Note [facility] 07-09-2023 Note [facility] 07-09-2023 Note [facility] 07-09-2023 Note [facility] 07-08-2023 Note [facility] 07-07-2023 Note [facility] 07-07-2023 Note [facility] 07-06-2023 Note [facility] 07-02-[address] chest wo [facility] 05-16-2023 Note [facility] 05-16-2023 Note [facility] 05-16-2023 Note [facility] 05-14-2023 Note [facility] 05-14-2023 Note [facility] 05-01-2023 Note Patient provided a c opy of the AVS. All questions answered. Patient discharged with belongings and taken down with transport via wheelchair and family at bedside. [facility] 05-01-2023 Note [facility] 05-01-2023 Note [facility] 05-01-2023 Note [facility] 05-01-2023 Note [facility] 04-30-2023 Note [facility] 04-30-2023 Note [facility] 04-29-2023 Note [facility] 04-29-2023 Note [facility] 04-29-2023 Note [facility] 04-29-2023 Note [facility] 04-28-2023 Note [facility] 04-28-2023 Note [facility] 04-27-2023 Note [facility] 04-27-2023 Note [facility] 04-27-2023 Note [facility] 04-27-2023 Note [facility] 04-26-2023 Note [facility] 04-26-2023 Note [facility] 04-26-2023 Note [facility] 04-26-2023 Note [facility] 04-26-2023 Note [facility] 04-26-2023 Note [facility] 04-25-2023 Note [facility] 04-25-2023 Note Attempted to call wi fe to get information and give updates. Was unable to reach her, will continue to try. [facility] 04-25-2023 Note [facility] 04-25-2023 Note [facility] 04-25-2023 Note [facility] 04-24-2023 Note Patient is still on vent support. Per RN was off and placed back on yesterday. Consult for s/p CABG. SW to follow. [facility] 04-24-2023 Note [facility] 04-24-2023 Note Physical Therapy Patient intubated/sedated at this time. PT will check back and follow as appropriate. Stella Bustos, CHANTEL [facility] 04-24-2023 Note [facility] 04-24-2023 Note Occupational Therapy Cancel Note Reason: Patient intubated and sedated at this time. OT will continue to follow and will re-attempt as able. Time in: 0808 Check no charge Thelma CAMEJO, OTR/L, CLT [facility] 04-24-2023 Note [facility] 04-24-2023 Note [facility] 04-23-2023 Note [facility] 04-23-2023 Note [facility] 04-23-2023 Note [facility] 04-23-2023 Note [facility] 04-23-2023 Note [facility] 04-22-2023 Note TRIGGER: PRESSURE 1:1 FULLY AUGMENTED [facility] 04-22-2023 Note TRIGGER: PRESSURE 1:1 FULLY AUGMENTED [facility] 04-22-2023 Note INSERTED WITHOUT COM PLICATION USING STERILE TECHNIQUE; DRAINING CLEAR YELLOW URINE; TO BE MONITORED BY ANESTHESIA FOR DURATION OF THE CASE [facility] 04-22-2023 Note [facility] 04-22-2023 Note [facility] 04-22-2023 Note [facility] 04-09-2023 Note [facility] 04-09-2023 Note [facility] 04-04-2023 Note [facility] 04-01-2023 Note [facility] 03-23-2023 Note [facility] 03-23-2023 Note [facility] 03-22-2023 Note [facility] 03-22-2023 Note [facility] 09-11-2022 Note [facility] 09-04-2022 Note I reviewed with the resident the medical history and the resident???s findings on physical examination. I discussed with the resident the patient???s diagnosis and concur with the treatment plan as documented in the resident note. Shmuel Vásquez MD [facility] 09-04-2022 Note [facility] 03-27-2022 Hospital Discharge instructions Patient Education [...] urethra. Follow these instructions at home: Take tbwo-tpe-lxmytch and prescription medicines only as told by [...] 06/03/2006 Document Revised: 04/28/2019 Document Reviewed: 07/08/2017 [employer] Patient Education 2020 [employer]. Follow Up Care 03/21/2022 11:25:28 With:Giancarlo Campbell MD, ORLIN Pena Address: [facility] [address] [place] [address]- When: Unknown [facility] 03-21-2022 Note [phone] [id number]:[id number] [facility] 02-27-2022 Hospital Discharge instructions Follow Up Care 02/27/2022 13:20:12 With:Casper RAUSCH Address: [address] [place] [id number]- Business (1) When:5 to 7 days With:Casper RAUSCH Address: [address] [place] [id number]- Business (1) When: Unknown [facility] 12-05-2021 Hospital Discharge instructions Patient Education 12/05/2021 [...] Follow these instructions at home: Medicines Take kvoc-euw-juecrhx and prescription medicines only as told by [...] or the blood stops without treatment. Take ndsp-ytc-aixdkpg and prescription medicines only as told by your health care provider. Drink enough fluid to keep your urine clear or pale yellow. This information is not intended to replace advice given to you by your health care provider. Make sure you discuss any questions you have with your health care provider. Document Released: 06/03/2006 Document Revised: 10/28/2019 Document Reviewed: 07/06/2017 [employer] Patient Education 2020 [employer]. Follow Up Care 05/30/2021 15:33:59 With:Monica Mondragon Jr., MD, URO Address: [facility] [address], [place] [phone] When: Unknown [facility] 05-23-2021 Hospital Discharge instructions Follow Up Care 05/23/2021 11:27:47 With:ELIZABETH LINDSAY PA-C, URL Address: [facility] Jeremie Alt[address] [place] [address] When:Within 1 Year(s) Comments:w/PSA [facility] Evaluation + Plan note Future Appointments Appointment Date:05/22/2022 11:00:00 AM Scheduled Provider:Monica Mondragon Jr., MD Location:[facility] Appointment Type:URO Office Visit Diagnostic Tests PendingPSA Total 12/05/21 Future Scheduled TestsPSA Free & Total 05/30/21 [facility] Evaluation + Plan note Future Appointments Appointment Date:05/22/2022 11:00:00 AM Scheduled Provider:Monica Mondragon Jr., MD Location:[facility] Appointment Type:URO Office Visit Future Scheduled TestsPSA Free & Total 05/30/21 [facility] Evaluation + Plan note Future Appointments Appointment Date:03/27/2022 09:45:00 AM Scheduled Provider:Casper RAUSCH MD Location:[facility] Appointment Type:URO Office Visit Appointment Date:05/22/2022 11:00:00 AM Scheduled Provider:Monica Mondragon Jr., MD Location:[facility] Appointment Type:URO Office Visit Diagnostic Tests PendingUroVysion Fish and Urine Cyto ([facility]) 03/21/22 Future Scheduled TestsPSA Free & Total 05/30/21 [facility] Evaluation + Plan note Future Appointments Appointment Date:09/18/2022 09:15:00 AM Scheduled Provider:Monica Mondragon Jr., MD Location:[facility] Appointment Type:URO Office Visit Diagnostic Tests PendingPSA Free & Total 06/17/22 Future Scheduled TestsPSA Free & Total 05/30/21 [facility] Evaluation + Plan note Future Appointments Appointment Date:02/11/2024 08:30:00 AM Scheduled Provider:ELIZABETH LINDSAY PA-C Location:[facility] Appointment Type:URO Office Visit Diagnostic Tests PendingPSA Total 01/29/23 [facility] Hospital course Narrative No data available for this section [facility] Hospital Discharge instructions No data available for this section [facility] [place] Progress note No data available for this section [facility] Summary Purpose Family History No Family History Records FoundNo Family History Records FoundNo Family History Records Found Advance Directives No Advanced Directives Records FoundNo Advanced Directives Records FoundNo Advanced Directives Records Found Additional Source Comments Care Team (unrecognized sect ion and content) Personnel Name: yTson Jaquez MD Address: [address] [place] [address] Personnel Name: Tyson Jaquez MD Address: [address] [place] [address] Personnel Name: Tyson Jaquez MD Address: Address: [address] [place] [address] Personnel Name: Tyson Jaquez MD Address: Address: [address] [place] [address] Personnel Name: Tyson Jaquez MD Address: Address: [address] [place] [address] (unrecognized sect ion and content) No Status Records FoundNo Status Records FoundNo Status Records Found INFORMATION SOURCE (unrecogn ized section and content) DATE CREATED AUTHOR 08/10/2022 [facility] DATE CREATED AUTHOR AUTHOR'S ORGANIZ ATION 02/13/2023 [facility] DATE CREATED AUTHOR AUTHOR'S ORGANIZ ATION 07/21/2023 [facility] FOR RECORDS PERTAINING TO PATIENTS WHO [...] BE BASED ON THE PRIMARY CLINICAL RECORDS. [employer] provides no warranty or guarantee of the accuracy or completeness of information in this document.
[2023-07-26] MEDS: AMINOPHYLLINE 250 MG/10 ML VIAL 50 MG IVP (10:14)
[2023-07-26] MEDS: REGADENOSON 0.4 MG/5 ML SYRINGE IV (10:14)
== END 2023-07-26 07:51 | disposition home or self-care (01) ==
LOC: NM 07:50
PROVIDERS: PCP Family Medicine; Visit Provider Nurse Practitioner
DX: I21.4 Non-ST elevation (NSTEMI) myocardial infarction (principal); I25.709 Atherosclerosis of coronary artery bypass graft(s), unspecified, with unspecified angina pectoris
CPT/HCPCS: 78452; 93017; A9500; J0280; J2785

== ENCOUNTER 2023-08-14 09:51 | Outpatient (OUT) | payer MEDICARE, SELFPAY ==
--- OUTSIDE RECORDS SUMMARY | 2023-08-14 10:08 | XMS_ITS | CCD ---
Author Name Unknown Address [address] [place] [address] Organization [facility] Care Team Providers Care Metal Lather Name Role Phone Angella Jaquez Primary Care Physician [phone] PERALES Admitting Unavailable HOY [...] Unavailable ZIEBER, DR DAVID Bond Consulting Unavailable DAKSHA, ELIZABETH Benedict Attending Unavailable DAKSHA, ELIZABETH Benedict Attending Unavailable RICECasper Referring Unavailable RICE, Casper Grace Attending Unavailable RICE, Casper Grace Admitting Unavailable RICE, Casper Grace Referring Unavailable RICE, Casper Grace Attending Unavailable ELINA HOLLEY Referring Unavailable KAREY SAWANT Referring Unavailabl e KAREY SAWANT Referring Unavailabl e CHAITANYA AMES Referring Unavailable CARRIZO, CHAITANYA Referring Unavailable JENNA CABRERA Referring Unavailable RODGER SEXTON Referring Unavailable CARRICHAITANYA GAMEZ Attending Unavailable CARRIZO, CHAITANYA Admitting Unavailable DOMENIC NGUYEN Attending Unavailable SHOAIBSUSANNE TAN Admitting Unavailable RIZWANA HOLDEN Referring Unavailable CARRIZO, CHAITANYA Referring Unavailable CARRIZO, CHAITANYA Referring Unavailable JIGAR, SAEID Referring Unavailable JIGAR, SAEID Referring Unavailable CARRIZO, CHAITANYA Referring Unavailable JIGAR, Referring Unavailable KULAKOWSKI, KAREY Dhaliwal Referring Unavailabl e CARRIZO, CHAITANYA Referring Unavailable PATRICK, DOMENIC Referring Unavailable JIGAR, SAEID Referring Unavailable RAKANZANDER Referring Unavailable PARENTEAU, SHMUEL Referring Unavailable CARRIZO, CHAITANYA Referring Unavailable KULAKOWSKI, KAREY Dhaliwal Referring Unavailabl e CARRIZO, CHAITANYA Referring Unavailable CLIFFEL, CESAR Referring Unavailable KULAKOWSKI, KAREY Dhaliwal Referring Unavailabl e KULAKOWSKI, KAREY Dhaliwal Referring Unavailabl e RICKJENNA Referring Unavailable CARRIZO, CHAITANYA Referring Unavailable YANETHMAYELIN Attending Unavailable PARENTEAU, SHMUEL Attending Unavailable RICK, VALENTINA Attending Unavailable PARENTEAU, SHMUEL Referring Unavailable OMBALLI, JACOB Attending Unavailable JIGAR, SAEID Attending Unavailable PERNE, JUANITA Attending Unavailable CARRIZO, CHAITANYA Referring Unavailable OMBALLI, JACOB Attending Unavailable CARRIZO, CHAITANYA Attending Unavailable PIRKL, MARY Referring Unavailable PATRICK, DOMENIC Referring Unavailable KULAKOWSKI, KAREY Dhaliwal Referring Unavailabl e CLIFFEL, CESAR Referring Unavailable CARRIZO, CHAITANYA Referring Unavailable CARRIZO, CHAITANYA Referring Unavailable KULAKOWSKI, KAREY Dhaliwal Referring Unavailabl e CARRIZO, CHAITANYA Referring Unavailable PIRKL, MARY Referring Unavailable PIRKL, MARY Referring Unavailable PATRICK, DOMENIC Referring Unavailable KULAKOWSKI, KAREY Dhaliwal Referring Unavailabl e PARENTEAU, SHMUEL Referring Unavailable PATRICK, DOMENIC Attending Unavailable SHOAIB, SUSANNE Admitting Unavailable YANN VILLALBA Referring Unavailable Allergies Allergy Classification Reported Allergen(s) Allergy Type Date of Onset Reaction(s) Facility (1 source) No Known Medication Allergies; Translations: [No Known Medication Allergies] Propensity to adverse reactions (disorder) [facility] Repository Medications Current Medications Medication [...] Daily, # 90 cap(s), Refills(s) 3, [id number], cm, 12/05/21 8:20:00 EDT, [...] procedure, # 2 cap(s), Refills(s) 0, [id number], cm, 12/05/21 8:20:00 EDT, [...] Unstable angina; Translations: [Atherosclerotic heart disease of [place] coronary artery with other forms of angina pectoris] Onset: 03-21-2023 Chronic Diabetes mellitus without complication (1 source) Other [...] [Peripheral vascular disease, unspecified] Onset: 05-16-2023 Chronic Substance-related disorders (3 sources) Nicotine dependence, cigarettes, uncomplicated; Translations: [Nicotine dependence, unspecified, uncomplicated] Onset: 07-26-2022 Chronic Unclassified (5 sources) Asymptomatic microscopic hematuria 12-05-2021 Unclassified (2 sources) Post-op; Translations: [Post-op] Onset: 05-16-2023 Unclassified (2 sources) ST Elevation, Fatigue Onset: 05-06-2023 Past or Other Problems Problem Classification Problem Date Documented Da te Episodic/Chronic Coronary atherosclerosis and other heart disease (2 sources) Presence of aortocoronary bypass graft; Translations: [Presence of aortocoronary bypass graft] Onset: 04-22-2023 Episodic Genitourinary symptoms and ill-defined conditions (20 sources) [...] prostate specific antigen [PSA]] Onset: 12-05-2021 Episodic Shock (2 sources) Cardiogenic shock; Translations: [Cardiogenic shock] Onset: 04-23-2023 Episodic Results Test Name Value Interpretation Reference Range Facility Orders Onlyon 08-01-2023 Orders Only [id number] DejonRobert Sr. 1955 M Date Provider Department Center 08/01/2023 MAYELIN HAMMONDS Family History Family history unknown: Yes Normal [facility] Documentationon 07-30-2023 Documentation [id number] DejonRobert Sr. 1955 M Date Provider Department Center 07/30/2023 MAYELIN HAMMONDS Family History Family history unknown: Yes Normal [facility] 37on 07-18-2023 37 Normal [facility] Follow-Upon 07-18-2023 Follow-Up Normal [facility] 30on 07-09-2023 30 Normal [facility] BASIC METABOLIC PANELon 06-18 Anion gap [Moles/Vol] 11 mmol/L Normal 7-20 [facility] Comment on above: Performed By: #### L [id number] ####[facility] ([facility])[address] [place] [address] Calcium [Mass/Vol] 9.0 mg/dL Normal 8.6-10.3 [facility] Comment on above: Performed By: #### L [id number] ####[facility] ([facility])[address] [place] [address] Chloride [Moles/Vol] 105 mmol/L Normal 98-107 [facility] Comment on above: Performed By: #### L [id number] ####[facility] ([facility])[address] [place] [address] CO2 [Moles/Vol] 22 mmol/L Normal 21-31 [facility] Comment on above: Performed By: #### L [id number] ####[facility] ([facility])[address] [place] [address] Creatinine [Mass/Vol] 0.89 mg/dL Normal 0.70-1.30 [facility] Comment on above: Performed By: #### L [id number] ####[facility] ([facility])[address] [place] [address] GLOMERULAR FILTRATION RATE ML/MIN/1.73 SQ M.PREDICTED 92.8 mL/min/1.73m*2 Normal >60.0 [facility] Comment on above: Result Comment: [facility]???s estimated glomerular filtration rate (eGFR) will [...] of individuals. Performed By: #### L [id number] ####[facility] ([facility])[address] [place] [address] Glucose [Mass/Vol] 102 mg/dL High 70-100 [facility] Comment on above: Performed By: #### L [id number] ####[facility] ([facility])[address] [place] [address] Potassium [Moles/Vol] 3.5 mmol/L Normal 3.5-5.1 [facility] Comment on above: Performed By: #### L [id number] ####[facility] ([facility])[address] [place] [address] Sodium [Moles/Vol] 134 mmol/L Low 136-145 [facility] Comment on above: Performed By: #### L [id number] ####[facility] ([facility])[address] [place] [address] Urea nitrogen [Mass/Vol] 16 mg/dL Normal 7-25 [facility] Comment on above: Performed By: #### L [id number] ####[facility] ([facility])[address] [place] [address] UREA NITROGEN/CREATININ E (MASS RATIO) IN SER/PLAS 18.0 Normal [facility] Comment on above: Performed By: #### L [id number] ####[facility] ([facility])[address] [place] [address] DSon 07-09-2023 DS Normal [facility] Orders Onlyon 07-09-2023 Orders Only [id number] Gui Ortiz Sr. 1955 M Date Provider Department Center 07/09/2023 Katia-MAYELIN WOLFE [facility]. Family History Family history unknown: Yes [facility] 30on 07-08-2023 30 The patient is Moder ately Stable - Low risk of patient condition declining or worsening The patient's goals for the shift include comfort The clinical goals for the shift include vss Normal [facility] 30 Normal [facility] ANESon 07-08-2023 ANES Normal [facility] ANTI-XA (HEPARIN LEVEL)on HEPARIN UNFRACTIONATED (U/ML) IN PPP BY CHROMOGENIC METHOD 0.39 IU/mL Normal 0.3-0.7 [facility] Comment on above: Order Comment: Check anti-Xa level every 6 hours while on heparin infusion, or per protocol. Result Comment: Blanca roxaban and Apixaban will interfere with the anti Xa assay used to monitor UFH and LMWH. Performed By: #### L [id number] ####[facility] ([facility])[address] [place] [address] BASIC METABOLIC PANELon - Anion gap [Moles/Vol] 11 mmol/L Normal 7-20 [facility] Comment on above: Performed By: #### L [id number] ####[facility] ([facility])[address] [place] [address] Calcium [Mass/Vol] 10.0 mg/dL Normal 8.6-10.3 [facility] Comment on above: Performed By: #### L [id number] ####[facility] ([facility])[address] [place] [address] Chloride [Moles/Vol] 105 mmol/L Normal 98-107 [facility] Comment on above: Performed By: #### L [id number] ####[facility] ([facility])[address] [place] [address] CO2 [Moles/Vol] 26 mmol/L Normal 21-31 [facility] Comment on above: Performed By: #### L [id number] ####[facility] ([facility])[address] [place] [address] Creatinine [Mass/Vol] 1.02 mg/dL Normal 0.70-1.30 [facility] Comment on above: Performed By: #### L [id number] ####[facility] ([facility])[address] [place] [address] GLOMERULAR FILTRATION RATE ML/MIN/1.73 SQ M.PREDICTED 79.6 mL/min/1.73m*2 Normal >60.0 [facility] Comment on above: Result Comment: [facility]???s estimated glomerular filtration rate (eGFR) will [...] of individuals. Performed By: #### L [id number] ####[facility] ([facility])[address] [place] [address] Glucose [Mass/Vol] 112 mg/dL High 70-100 [facility] Comment on above: Performed By: #### L [id number] ####[facility] ([facility])[address] [place] [address] Potassium [Moles/Vol] 4.5 mmol/L Normal 3.5-5.1 [facility] Comment on above: Performed By: #### L [id number] ####[facility] ([facility])[address] [place] [address] Sodium [Moles/Vol] 137 mmol/L Normal 136-145 [facility] Comment on above: Performed By: #### L [id number] ####[facility] ([facility])[address] [place] [address] Urea nitrogen [Mass/Vol] 15 mg/dL Normal 7-25 [facility] Comment on above: Performed By: #### L [id number] ####[facility] ([facility])[address] [place] [address] UREA NITROGEN/CREATININ E (MASS RATIO) IN SER/PLAS 14.7 Normal [facility] Comment on above: Performed By: #### L [id number] ####[facility] ([facility])[address] [place] [address] CBCon 07-08-2023 Erythrocyte distribution width (RBC) [Ratio] 13.5 % Normal 11.5-15.0 [facility] Comment on above: Performed By: #### L [id number] ####[facility] ([facility])[address] [place] [address] ERYTHROCYTE MEAN CORPUSCULAR HEMOGLOBIN CONCENTRATION (G/DL) BY AUTOMATED 33.0 g/dL Normal 32.0-35.0 [facility] Comment on above: Performed By: #### L [id number] ####[facility] ([facility])[address] [place] [address] Hematocrit (Bld) [Volume fraction] 39.4 % Normal 39.0-55.0 [facility] Comment on above: Performed By: #### L [id number] ####[facility] ([facility])[address] [place] [address] Hemoglobin (Bld) [Mass/Vol] 13.0 g/dL Normal 13.0-17.0 [facility] Comment on above: Performed By: #### L [id number] ####[facility] ([facility])[address] [place] [address] MCH (RBC) [Entitic mass] 29.1 pg Normal 27.0-33.0 [facility] Comment on above: Performed By: #### L [id number] ####[facility] ([facility])[address] [place] [address] MCV (RBC) [Entitic vol] 88.3 fL Normal 82.0-98.0 [facility] Comment on above: Performed By: #### L [id number] ####[facility] ([facility])[address] [place] [address] PLATELETS (10*3/UL) IN BLOOD AUTOMATED COUNT 248 10*3/uL Normal 150-400 [facility] Comment on above: Performed By: #### L [id number] ####[facility] ([facility])[address] [place] [address] RBC (Bld) [#/Vol] 4.46 10*6/uL Normal 4.20-5.70 [facility] Comment on above: Performed By: #### L [id number] ####[facility] ([facility])[address] [place] [address] WBC (Bld) [#/Vol] 7.02 10*3/uL Normal 4.00-10.60 [facility] Comment on above: Performed By: #### L [id number] ####[facility] ([facility])[address] [place] [address] HPon 07-08-2023 HP H&P reviewed. The pa tient was examined and there are changes to the H&P, specifically, the L radial pulse is absent as are the distal PT and DP pulses. Normal [facility] LIPID PANELon 07-08-2023 CHOL/HDL 2.6 mg/dL Normal [facility] Comment on above: Performed By: #### L [id number] ####[facility] ([facility])[address] [place] [address] Cholesterol [Mass/Vol] 105 mg/dL Low 120-200 [facility] Comment on above: Performed By: #### L [id number] ####[facility] ([facility])[address] [place] [address] Magnesium [Mass/Vol] 63 mg/dL Normal 40-149 [facility] Comment on above: Result Comment: TRIG LYCERIDE REFERENCE RANGE:20 YEARS AND OLDER CARDIOVASCULAR RISKLESS THAN 150 mg/dL LOW [id number] TO 199 mg/dL BORDERLINE [id number] mg/dL AND GREATER HIGH RISK Performed By: #### L [id number] ####[facility] ([facility])[address] [place] [address] Magnesium [Mass/Vol] 52 mg/dL Normal 0-160 [facility] Comment on above: Performed By: #### L [id number] ####[facility] ([facility])[address] [place] [address] Magnesium [Mass/Vol] 40 mg/dL Normal 23-92 [facility] Comment on above: Performed By: #### L [id number] ####[facility] ([facility])[address] [place] [address] NON HDL CHOL. (LDL+VLDL) 65 Normal [facility] Comment on above: Performed By: #### L [id number] ####[facility] ([facility])[address] [place] [address] TOTAL VLDL-C 13 mg/dL Normal 0-40 [facility] Comment on above: Performed By: #### L [id number] ####[facility] ([facility])[address] [place] [address] NURSNOTEon 07-08-2023 NURSNOTE Normal [facility] 30on 07-07-2023 30 Normal [facility] ANTI-XA (HEPARIN LEVEL)on HEPARIN UNFRACTIONATED (U/ML) IN PPP BY CHROMOGENIC METHOD 0.35 IU/mL Normal 0.3-0.7 [facility] Comment on above: Result Comment: Blanca roxaban and Apixaban will interfere with the anti Xa assay used to monitor UFH and LMWH. Performed By: #### L [id number] ####[facility] ([facility])[address] [place] [address] HEPARIN UNFRACTIONATED (U/ML) IN PPP BY CHROMOGENIC METHOD 0.35 IU/mL Normal 0.3-0.7 [facility] Comment on above: Order Comment: Check anti-Xa level every 6 hours while on heparin infusion, or per protocol. Result Comment: Blanca roxaban and Apixaban will interfere with the anti Xa assay used to monitor UFH and LMWH. Performed By: #### L [id number] ####[facility] ([facility])[address] [place] [address] BASIC METABOLIC PANELon 06-18 Anion gap [Moles/Vol] 12 mmol/L Normal 7-20 [facility] Comment on above: Performed By: #### L [id number] ####[facility] ([facility])[address] [place] [address] Calcium [Mass/Vol] 9.0 mg/dL Normal 8.6-10.3 [facility] Comment on above: Performed By: #### L [id number] ####[facility] ([facility])[address] [place] [address] Chloride [Moles/Vol] 106 mmol/L Normal 98-107 [facility] Comment on above: Performed By: #### L [id number] ####[facility] ([facility])[address] [place] [address] CO2 [Moles/Vol] 22 mmol/L Normal 21-31 [facility] Comment on above: Performed By: #### L [id number] ####[facility] ([facility])[address] [place] [address] Creatinine [Mass/Vol] 0.79 mg/dL Normal 0.70-1.30 [facility] Comment on above: Performed By: #### L [id number] ####[facility] ([facility])[address] [place] [address] GLOMERULAR FILTRATION RATE ML/MIN/1.73 SQ M.PREDICTED 96.2 mL/min/1.73m*2 Normal >60.0 [facility] Comment on above: Result Comment: [facility]???s estimated glomerular filtration rate (eGFR) will [...] of individuals. Performed By: #### L [id number] ####[facility] ([facility])[address] [place] [address] Glucose [Mass/Vol] 113 mg/dL High 70-100 [facility] Comment on above: Performed By: #### L [id number] ####[facility] ([facility])[address] [place] [address] Potassium [Moles/Vol] 3.6 mmol/L Normal 3.5-5.1 [facility] Comment on above: Performed By: #### L [id number] ####[facility] ([facility])[address] [place] [address] Sodium [Moles/Vol] 136 mmol/L Normal 136-145 [facility] Comment on above: Performed By: #### L [id number] ####[facility] ([facility])[address] [place] [address] Urea nitrogen [Mass/Vol] 16 mg/dL Normal 7-25 [facility] Comment on above: Performed By: #### L [id number] ####[facility] ([facility])[address] [place] [address] UREA NITROGEN/CREATININ E (MASS RATIO) IN SER/PLAS 20.3 Normal [facility] Comment on above: Performed By: #### L [id number] ####[facility] ([facility])[address] [place] [address] 30on 07-06-2023 30 The patient is Moder ately Stable - Low risk of patient condition declining or worsening The patient's goals for the shift include comfort The clinical goals for the shift include VSS [facility] 30 Normal [facility] ANTI-XA (HEPARIN LEVEL)on HEPARIN UNFRACTIONATED (U/ML) IN PPP BY CHROMOGENIC METHOD 0.34 IU/mL Normal 0.3-0.7 [facility] Comment on above: Order Comment: Check anti-Xa level every 6 hours while on heparin infusion, or per protocol. Result Comment: Blanca roxaban and Apixaban will interfere with the anti Xa assay used to monitor UFH and LMWH. Performed By: #### L [id number] ####[facility] ([facility])[address] [place] [address] HEPARIN UNFRACTIONATED (U/ML) IN PPP BY CHROMOGENIC METHOD 0.22 IU/mL Low 0.3-0.7 [facility] Comment on above: Order Comment: Check anti-Xa level every 6 hours while on heparin infusion, or per protocol. Result Comment: [place] roxaban and Apixaban will interfere with the anti Xa assay used to monitor UFH and LMWH. Performed By: #### L [id number] ####[facility] ([facility])[address] [place] [address] HEPARIN UNFRACTIONATED (U/ML) IN PPP BY CHROMOGENIC METHOD 0.16 IU/mL Invalid Interpretation Code 0.3-0.7 [facility] Comment on above: Order Comment: Check anti-Xa level every 6 hours while on heparin infusion, or per protocol. Result Comment: Blanca roxaban and Apixaban will interfere with the anti Xa assay used to monitor UFH and LMWH. Performed By: #### L [id number] ####[facility] ([facility])[address] [place] [address] HEPARIN UNFRACTIONATED (U/ML) IN PPP BY CHROMOGENIC METHOD 0.17 IU/mL Low 0.3-0.7 [facility] Comment on above: Order Comment: Check anti-Xa level every 6 hours while on heparin infusion, or per protocol. Result Comment: Blanca roxaban and Apixaban will interfere with the anti Xa assay used to monitor UFH and LMWH. Performed By: #### L [id number] ####[facility] ([facility])[address] [place] [address] CBCon 07-06-2023 Erythrocyte distribution width (RBC) [Ratio] 13.7 % Normal 11.5-15.0 [facility] Comment on above: Performed By: #### L [id number] ####[facility] ([facility])[address] [place] [address] ERYTHROCYTE MEAN CORPUSCULAR HEMOGLOBIN CONCENTRATION (G/DL) BY AUTOMATED 34.3 g/dL Normal 32.0-35.0 [facility] Comment on above: Performed By: #### L [id number] ####[facility] ([facility])[address] [place] [address] Hematocrit (Bld) [Volume fraction] 38.8 % Low 39.0-55.0 [facility] Comment on above: Performed By: #### L [id number] ####[facility] ([facility])[address] [place] [address] Hemoglobin (Bld) [Mass/Vol] 13.3 g/dL Normal 13.0-17.0 [facility] Comment on above: Performed By: #### L [id number] ####[facility] ([facility])[address] [place] [address] MCH (RBC) [Entitic mass] 29.6 pg Normal 27.0-33.0 [facility] Comment on above: Performed By: #### L [id number] ####[facility] ([facility])[address] [address] MCV (RBC) [Entitic vol] 86.4 fL Normal 82.0-98.0 [facility] Comment on above: Performed By: #### L [id number] ####[facility] ([facility])[address] [place] [address] PLATELETS (10*3/UL) IN BLOOD AUTOMATED COUNT 242 10*3/uL Normal 150-400 [facility] Comment on above: Performed By: #### L [id number] ####[facility] ([facility])[address] [place] [address] RBC (Bld) [#/Vol] 4.49 10*6/uL Normal 4.20-5.70 [facility] Comment on above: Performed By: #### L [id number] ####[facility] ([facility])[address] [place] [address] WBC (Bld) [#/Vol] 6.59 10*3/uL Normal 4.00-10.60 [facility] Comment on above: Performed By: #### L [id number] ####[facility] ([facility])[address] [place] [address] CONSULTon 07-06-2023 CONSULT Normal [facility] HPon 07-06-2023 HP Normal [facility] TROPONIN Ion 07-06-2023 Troponin I.cardiac [Mass/Vol] 0.03 ng/mL Normal 0.00-0.04 [facility] Comment on above: Performed By: #### L [id number] ####[facility] ([facility])[address] [place] [address] Troponin I.cardiac [Mass/Vol] 0.05 ng/mL High 0.00-0.04 [facility] Comment on above: Performed By: #### L [id number] ####[facility] ([facility])[address] [place] [address] Troponin I.cardiac [Mass/Vol] 0.06 ng/mL High 0.00-0.04 [facility] Comment on above: Performed By: #### L [id number] ####[facility] ([facility])[address] [place] [address] Troponin I.cardiac [Mass/Vol] 0.12 ng/mL Critically high 0.00-0.04 [facility] Comment on above: Result Comment: M-FL EVIOUS CRITICAL RESULTPrevious result verified on 07/05/20232224 on specimen/case [id number] called with component Troponin I for procedure Troponin I with value 0.23 ng/mL. Performed By: #### L [id number] ####[facility] ([facility])[address] [place] [address] 30on 07-05-2023 30 Normal [facility] APTTon 07-05-2023 ACTIVATED PARTIAL THROMBOPLASTIN TIME IN PPP BY COAGULATION ASSAY 36.3 Seconds High 25.0-35.0 [facility] Comment on above: Order Comment: Basel ine aPTT before initiating heparin infusion. Result Comment: Clin ical significance of the APTT is questionable in the presence of heparin. Performed By: #### L [id number] ####[facility] ([facility])[address] [place] [address] B-TYPE NATRIURETIC PEPTIDEon 07-05-2023 Natriuretic peptide B (Bld) [Mass/Vol] 346 pg/mL High 0-100 [facility] Comment on above: Performed By: #### L [id number] ####[facility] ([facility])[address] [place] [address] CBC WITH AUTO DIFFERENTIALon 07-05-2023 Basophils (Bld) [#/Vol] 0.03 10*3/uL Normal 0.00-0.20 [facility] Comment on above: Performed By: #### L [id number] ####[facility] ([facility])[address] [place] [address] Basophils/100 WBC (Bld) 0.5 % Normal 0.0-1.0 [facility] Comment on above: Performed By: #### L [id number] ####[facility] ([facility])[address] [place] [address] Eosinophils (Bld) [#/Vol] 0.15 10*3/uL Normal 0.00-0.50 [facility] Comment on above: Performed By: #### L [id number] ####[facility] ([facility])[address] [place] [address] Eosinophils/100 WBC (Bld) 2.3 % Normal 0.0-6.0 [facility] Comment on above: Performed By: #### L [id number] ####[facility] ([facility])[address] [place] [address] Erythrocyte distribution width (RBC) [Ratio] 13.6 % Normal 11.5-15.0 [facility] Comment on above: Performed By: #### L [id number] ####[facility] ([facility])[address] [place] [address] ERYTHROCYTE MEAN CORPUSCULAR HEMOGLOBIN CONCENTRATION (G/DL) BY AUTOMATED 34.1 g/dL Normal 32.0-35.0 [facility] Comment on above: Performed By: #### L [id number] ####[facility] ([facility])[address] [place] [address] Hematocrit (Bld) [Volume fraction] 41.7 % Normal 39.0-55.0 [facility] Comment on above: Performed By: #### L [id number] ####[facility] ([facility])[address] [place] [address] Hemoglobin (Bld) [Mass/Vol] 14.2 g/dL Normal 13.0-17.0 [facility] Comment on above: Performed By: #### L [id number] ####[facility] ([facility])[address] [place] [address] Immature granulocytes (Bld) [#/Vol] 0.01 10*3/uL Normal 0.00-0.20 [facility] Comment on above: Performed By: #### L [id number] ####[facility] ([facility])[address] [place] [address] Immature granulocytes/100 WBC (Bld) 0.2 % Normal 0.0-1.0 [facility] Comment on above: Performed By: #### L [id number] ####[facility] ([facility])[address] [place] [address] Lymphocytes (Bld) [#/Vol] 2.12 10*3/uL Normal 1.20-4.00 [facility] Comment on above: Performed By: #### L [id number] ####[facility] ([facility])[address] [place] [address] Lymphocytes/100 WBC (Bld) 32.7 % Normal 20.0-45.0 [facility] Comment on above: Performed By: #### L [id number] ####[facility] ([facility])[address] [place] [address] MCH (RBC) [Entitic mass] 29.3 pg Normal 27.0-33.0 [facility] Comment on above: Performed By: #### L [id number] ####[facility] ([facility])[address] [place] [address] MCV (RBC) [Entitic vol] 86.2 fL Normal 82.0-98.0 [facility] Comment on above: Performed By: #### L [id number] ####[facility] ([facility])[address] [place] [address] Monocytes (Bld) [#/Vol] 0.64 10*3/uL Normal 0.10-1.00 [facility] Comment on above: Performed By: #### L [id number] ####[facility] ([facility])[address] [place] [address] Monocytes/100 WBC (Bld) 9.9 % Normal 5.0-12.0 [facility] Comment on above: Performed By: #### L [id number] ####[facility] ([facility])[address] [place] [address] Neutrophils (Bld) [#/Vol] 3.54 10*3/uL Normal 1.60-7.60 [facility] Comment on above: Performed By: #### L [id number] ####[facility] ([facility])[address] [place], [place] [address] Neutrophils/100 WBC (Bld) 54.4 % Normal 40.0-72.0 [facility] Comment on above: Performed By: #### L [id number] ####[facility] ([facility])[address] [place] [address] NRBC (PER 100 WBCS) BY AUTOMATED COUNT 0.0 % Normal 0 [facility] Comment on above: Performed By: #### L [id number] ####[facility] ([facility])[address] [place] [address] PLATELETS (10*3/UL) IN BLOOD AUTOMATED COUNT 277 10*3/uL Normal 150-400 [facility] Comment on above: Performed By: #### L [id number] ####[facility] ([facility])[address] [place] [address] RBC (Bld) [#/Vol] 4.84 10*6/uL Normal 4.20-5.70 [facility] Comment on above: Performed By: #### L [id number] ####[facility] ([facility])[address] [place] [address] WBC (Bld) [#/Vol] 6.49 10*3/uL Normal 4.00-10.60 [facility] Comment on above: Performed By: #### L [id number] ####[facility] ([facility])[address] [place] [address] COMPREHENSIVE METABOLIC PANE Roddy 07-05-2023 Albumin [Mass/Vol] 3.9 g/dL Normal 3.5-5.7 [facility] Comment on above: Performed By: #### L [id number] ####[facility] ([facility])[address] [place] [address] ALP [Catalytic activity/Vol] 127 U/L High 34-104 [facility] Comment on above: Performed By: #### L [id number] ####[facility] ([facility])[address] [place] [address] ALT [Catalytic activity/Vol] 10 U/L Normal 7-52 [facility] Comment on above: Performed By: #### L [id number] ####[facility] ([facility])[address] [place] [address] Anion gap [Moles/Vol] 14 mmol/L Normal 7-20 [facility] Comment on above: Performed By: #### L [id number] ####[facility] ([facility])[address] [place] [address] AST [Catalytic activity/Vol] 15 U/L Normal 13-39 [facility] Comment on above: Performed By: #### L [id number] ####[facility] ([facility])[address] [place] [address] Bilirubin [Mass/Vol] 0.4 mg/dL Normal 0.3-1.0 [facility] Comment on above: Performed By: #### L [id number] ####[facility] ([facility])[address] [place] [address] Calcium [Mass/Vol] 9.4 mg/dL Normal 8.6-10.3 [facility] Comment on above: Performed By: #### L [id number] ####[facility] ([facility])[address] [place] [address] Chloride [Moles/Vol] 106 mmol/L Normal 98-107 [facility] Comment on above: Performed By: #### L [id number] ####[facility] ([facility])[address] [place] [address] CO2 [Moles/Vol] 23 mmol/L Normal 21-31 [facility] Comment on above: Performed By: #### L [id number] ####[facility] ([facility])[address] [place] [address] Creatinine [Mass/Vol] 0.78 mg/dL Normal 0.70-1.30 [facility] Comment on above: Performed By: #### L [id number] ####[facility] ([facility])[address] [place] [address] GLOMERULAR FILTRATION RATE ML/MIN/1.73 SQ M.PREDICTED 96.5 mL/min/1.73m*2 Normal >60.0 [facility] Comment on above: Result Comment: [facility]???s estimated glomerular filtration rate (eGFR) will [...] of individuals. Performed By: #### L [id number] ####[facility] ([facility])[address] [place] [address] Glucose [Mass/Vol] 114 mg/dL High 70-100 [facility] Comment on above: Performed By: #### L [id number] ####[facility] ([facility])[address] [place] [address] Potassium [Moles/Vol] 3.5 mmol/L Normal 3.5-5.1 [facility] Comment on above: Performed By: #### L [id number] ####[facility] ([facility])[address] [place] [address] Protein [Mass/Vol] 7.5 g/dL Normal 6.0-8.3 [facility] Comment on above: Performed By: #### L [id number] ####[facility] ([facility])[address] [place] [address] Sodium [Moles/Vol] 139 mmol/L Normal 136-145 [facility] Comment on above: Performed By: #### L [id number] ####[facility] ([facility])[address] [place] [address] Urea nitrogen [Mass/Vol] 13 mg/dL Normal 7-25 [facility] Comment on above: Performed By: #### L [id number] ####[facility] ([facility])[address] [place] [address] UREA NITROGEN/CREATININ E (MASS RATIO) IN SER/PLAS 16.7 Normal [facility] Comment on above: Performed By: #### L [id number] ####[facility] ([facility])[address] [place] [address] HPon 07-05-2023 HP Normal [facility] MAGNESIUMon 07-05-2023 Magnesium [Mass/Vol] 1.8 mg/dL Low 1.9-2.7 [facility] Comment on above: Performed By: #### L [id number] ####[facility] ([facility])[address] [place] [address] NURSNOTEon 07-05-2023 NURSNOTE Lead RN called admit amalia MONTES DE OCA, no new orders as of this time. Labels Molder verified diet order, pt placing order for dinner. Will continue to monitor Normal [facility] PHOSPHORUSon 07-05-2023 Magnesium [Mass/Vol] 3.5 mg/dL Normal 2.5-5.0 [facility] Comment on above: Performed By: #### L [id number] ####[facility] ([facility])[address] [place] [address] POCT GLUCOSE METER UNSOLICIT ED RESULTSon 07-05-2023 Glucose [Mass/Vol] 163 mg/dL High 70-105 [facility] Comment on above: Order Comment: Waive d Testing in the ED is performed under the ED CLIA certificate #[id number]. Result Comment: cgra [email or web address] Performed By: #### L [id number] ####[facility] ([facility])[address] [place] [address] PROTIME-INRon 07-05-2023 INR IN PPP BY COAGULATION ASSAY 1.07 Normal 0.90-1.10 [facility] Comment on above: Result Comment: [facility] P RECOMMENDED INR FOR WARFARIN THERAPY CONDITION INRPROPHYLAXIS OF VENOUS THROMBOSIS 2-3(HIGH-RISK SURGERY)TREATMENT OF VENOUS THROMBOSIS 2-3TREATMENT OF PULMONARY EMBOLISM 2-3PREVENTION OF SYSTEMIC EMBOLISM: 2-3 ACUTE MYOCARDIAL INFARCTION TISSUE HEART VALVES VALVULAR HEART DISEASE ATRIAL FIBRILLATION RECURRENT SYSTEMIC EMBOLISMMECHANICAL HEART VALVE 2.5-3.5 FROM: ORAL ANTICOAGULANTS. MECHANISM OF ACTION, CLINICAL EFFECTIVENESS, AND OPTIMAL THERAPEUTIC RANGE. CHEST 1995;108:231S-246S. Performed By: #### L [id number] ####[facility] ([facility])[address] [place] [address] PROTHROMBIN TIME (PT) IN PPP BY COAGULATION ASSAY 13.9 Seconds Normal 12.3-14.8 [facility] Comment on above: Performed By: #### L [id number] ####[facility] ([facility])[address] [place] [address] TROPONIN Ion 07-05-2023 Troponin I.cardiac [Mass/Vol] 0.23 ng/mL Critically high 0.00-0.04 [facility] Comment on above: Result Comment: M-CR ITICAL RESULT(S) REVIEWED, CALLED TO AND READ BACK BY MARY SIMMONS RN AT 2224M-TROPONIN INITIAL CRITICAL HIGH; RESPUN AND RETESTED Performed By: #### L [id number] ####[facility] ([facility])[address] [place] [address] Orders Onlyon 07-02-2023 Orders Only [id number] Gui Ortiz Sr. 1955 M Date Provider Department Center 07/02/2023 ALLEN HUA DCC ONC DCC Family History Family history unknown: Yes Normal [facility] 29on 05-16-2023 29 Addended by: PASCUAL VELARDE on: 05/16/2023 03:51 PM Modules accepted: Orders Normal [facility] 29 Addended by: PASCUAL VELARDE on: 05/16/2023 03:50 PM Modules accepted: Orders Normal [facility] Follow-Upon 05-16-2023 Follow-Up Normal [facility] 36on 05-03-2023 36 Normal [facility] Telephoneon 05-03-2023 Telephone [id number] Gui Ortiz 1955 M Date Provider Department Center 05/03/2023 SAEID MARISCAL HV[facility] [place] [facility] Family History Family history unknown: Yes Normal [facility] 36on 05-02-2023 36 Normal [facility] 30on 05-01-2023 30 Normal [facility] 30 Normal [facility] BASIC METABOLIC PANELon 04-17 Anion gap [Moles/Vol] 11 mmol/L Normal 7-20 [facility] Comment on above: Performed By: #### L [id number] ####[facility] ([facility])[address] [place] [address] Calcium [Mass/Vol] 8.4 mg/dL Low 8.6-10.3 [facility] Comment on above: Performed By: #### L [id number] ####[facility] ([facility])[address] [place] [address] Chloride [Moles/Vol] 109 mmol/L High 98-107 [facility] Comment on above: Performed By: #### L [id number] ####[facility] ([facility])[address] [place] [address] CO2 [Moles/Vol] 22 mmol/L Normal 21-31 [facility] Comment on above: Performed By: #### L [id number] ####[facility] ([facility])[address] [place] [address] Creatinine [Mass/Vol] 0.62 mg/dL Low 0.70-1.30 [facility] Comment on above: Performed By: #### L [id number] ####[facility] ([facility])[address] [place] [address] GLOMERULAR FILTRATION RATE ML/MIN/1.73 SQ M.PREDICTED 103.5 mL/min/1.73m*2 Normal >60.0 [facility] Comment on above: Result Comment: [facility]???s estimated glomerular filtration rate (eGFR) will [...] of individuals. Performed By: #### L [id number] ####[facility] ([facility])[address] [address] Glucose [Mass/Vol] 98 mg/dL Normal 70-100 [facility] Comment on above: Performed By: #### L [id number] ####[facility] ([facility])[address] [place] [address] Potassium [Moles/Vol] 3.7 mmol/L Normal 3.5-5.1 [facility] Comment on above: Performed By: #### L [id number] ####[facility] ([facility])[address] [place] [address] Sodium [Moles/Vol] 138 mmol/L Normal 136-145 [facility] Comment on above: Performed By: #### L [id number] ####[facility] ([facility])[address] [place] [address] Urea nitrogen [Mass/Vol] 12 mg/dL Normal 7-25 [facility] Comment on above: Performed By: #### L [id number] ####[facility] ([facility])[address] [place] [address] UREA NITROGEN/CREATININ E (MASS RATIO) IN SER/PLAS 19.4 Normal [facility] Comment on above: Performed By: #### L [id number] ####[facility] ([facility])[address] [place] [address] CBCon 05-01-2023 Erythrocyte distribution width (RBC) [Ratio] 14.5 % Normal 11.5-15.0 [facility] Comment on above: Performed By: #### L [id number] ####[facility] ([facility])[address] [place] [address] ERYTHROCYTE MEAN CORPUSCULAR HEMOGLOBIN CONCENTRATION (G/DL) BY AUTOMATED 33.2 g/dL Normal 32.0-35.0 [facility] Comment on above: Performed By: #### L [id number] ####[facility] ([facility])[address] [place] [address] Hematocrit (Bld) [Volume fraction] 27.4 % Low 39.0-55.0 [facility] Comment on above: Performed By: #### L [id number] ####[facility] ([facility])[address] [place] [address] Hemoglobin (Bld) [Mass/Vol] 9.1 g/dL Low 13.0-17.0 [facility] Comment on above: Performed By: #### L [id number] ####[facility] ([facility])[address] [place] [address] MCH (RBC) [Entitic mass] 30.7 pg Normal 27.0-33.0 [facility] Comment on above: Performed By: #### L [id number] ####[facility] ([facility])[address] [place] [address] MCV (RBC) [Entitic vol] 92.6 fL Normal 82.0-98.0 [facility] Comment on above: Performed By: #### L [id number] ####[facility] ([facility])[address] [place] [address] PLATELETS (10*3/UL) IN BLOOD AUTOMATED COUNT 276 10*3/uL Normal 150-400 [facility] Comment on above: Performed By: #### L [id number] ####[facility] ([facility])[address] [place] [address] RBC (Bld) [#/Vol] 2.96 10*6/uL Low 4.20-5.70 [facility] Comment on above: Performed By: #### L [id number] ####[facility] ([facility])[address] [place] [address] WBC (Bld) [#/Vol] 6.87 10*3/uL Normal 4.00-10.60 [facility] Comment on above: Performed By: #### L [id number] ####[facility] ([facility])[address] [place] [address] DSon 05-01-2023 DS Normal [facility] MAGNESIUMon 05-01-2023 Magnesium [Mass/Vol] 1.7 mg/dL Low 1.9-2.7 [facility] Comment on above: Performed By: #### L [id number] ####[facility] ([facility])[address] [place] [address] NURSNOTEon 05-01-2023 NURSNOTE Normal [facility] NURSNOTE Normal [facility] PHOSPHORUSon 05-01-2023 Magnesium [Mass/Vol] 3.8 mg/dL Normal 2.5-5.0 [facility] Comment on above: Performed By: #### L [id number] ####[facility] ([facility])[address] [place] [address] POCT GLUCOSE METER UNSOLICIT ED RESULTSon 05-01-2023 Glucose [Mass/Vol] 116 mg/dL High 70-105 [facility] Comment on above: Order Comment: Waive d Testing in the ED is performed under the ED CLIA certificate #[id number]. Result Comment: [email or web address] Performed By: #### L [id number] ####[facility] ([facility])[address] [place] [address] Glucose [Mass/Vol] 115 mg/dL High 70-105 [facility] Comment on above: Order Comment: Waive d Testing in the ED is performed under the ED CLIA certificate #[id number]. Result Comment: [email or web address] Performed By: #### L [id number] ####[facility] ([facility])[address] [place] [address] 30on 04-30-2023 30 Normal [facility] 30 Normal [facility] 30 Normal [facility] BASIC METABOLIC PANELon 04-17 Anion gap [Moles/Vol] 12 mmol/L Normal 7-20 [facility] Comment on above: Performed By: #### L [id number] ####[facility] ([facility])[address] [place] [address] Calcium [Mass/Vol] 8.3 mg/dL Low 8.6-10.3 [facility] Comment on above: Performed By: #### L [id number] ####[facility] ([facility])[address] [place] [address] Chloride [Moles/Vol] 109 mmol/L High 98-107 [facility] Comment on above: Performed By: #### L [id number] ####[facility] ([facility])[address] [place] [address] CO2 [Moles/Vol] 21 mmol/L Normal 21-31 [facility] Comment on above: Performed By: #### L [id number] ####[facility] ([facility])[address] [place] [address] Creatinine [Mass/Vol] 0.70 mg/dL Normal 0.70-1.30 [facility] Comment on above: Performed By: #### L [id number] ####[facility] ([facility])[address] [place] [address] GLOMERULAR FILTRATION RATE ML/MIN/1.73 SQ M.PREDICTED 99.7 mL/min/1.73m*2 Normal >60.0 [facility] Comment on above: Result Comment: [facility]???s estimated glomerular filtration rate (eGFR) will [...] of individuals. Performed By: #### L [id number] ####[facility] ([facility])[address] [place] [address] Glucose [Mass/Vol] 104 mg/dL High 70-100 [facility] Comment on above: Performed By: #### L [id number] ####[facility] ([facility])[address] [place] [address] Potassium [Moles/Vol] 3.7 mmol/L Normal 3.5-5.1 [facility] Comment on above: Performed By: #### L [id number] ####[facility] ([facility])[address] [place] [address] Sodium [Moles/Vol] 138 mmol/L Normal 136-145 [facility] Comment on above: Performed By: #### L [id number] ####[facility] ([facility])[address] [place] [address] Urea nitrogen [Mass/Vol] 15 mg/dL Normal 7-25 [facility] Comment on above: Performed By: #### L [id number] ####[facility] ([facility])[address] [place] [address] UREA NITROGEN/CREATININ E (MASS RATIO) IN SER/PLAS 21.4 Normal [facility] Comment on above: Performed By: #### L [id number] ####[facility] ([facility])[address] [place] [address] CBCon 04-30-2023 Erythrocyte distribution width (RBC) [Ratio] 13.8 % Normal 11.5-15.0 [facility] Comment on above: Performed By: #### L [id number] ####[facility] ([facility])[address] [place] [address] ERYTHROCYTE MEAN CORPUSCULAR HEMOGLOBIN CONCENTRATION (G/DL) BY AUTOMATED 32.6 g/dL Normal 32.0-35.0 [facility] Comment on above: Performed By: #### L [id number] ####[facility] ([facility])[address] [place] [address] Hematocrit (Bld) [Volume fraction] 27.3 % Low 39.0-55.0 [facility] Comment on above: Performed By: #### L [id number] ####[facility] ([facility])[address] [place] [address] Hemoglobin (Bld) [Mass/Vol] 8.9 g/dL Low 13.0-17.0 [facility] Comment on above: Performed By: #### L [id number] ####[facility] ([facility])[address] [place] [address] MCH (RBC) [Entitic mass] 30.4 pg Normal 27.0-33.0 [facility] Comment on above: Performed By: #### L [id number] ####[facility] ([facility])[address] [place] [address] MCV (RBC) [Entitic vol] 93.2 fL Normal 82.0-98.0 [facility] Comment on above: Performed By: #### L [id number] ####[facility] ([facility])[address] [place] [address] PLATELETS (10*3/UL) IN BLOOD AUTOMATED COUNT 219 10*3/uL Normal 150-400 [facility] Comment on above: Performed By: #### L [id number] ####[facility] ([facility])[address] [place] [address] RBC (Bld) [#/Vol] 2.93 10*6/uL Low 4.20-5.70 [facility] Comment on above: Performed By: #### L [id number] ####[facility] ([facility])[address] [place] [address] WBC (Bld) [#/Vol] 6.80 10*3/uL Normal 4.00-10.60 [facility] Comment on above: Performed By: #### L [id number] ####[facility] ([facility])[address] [place] [address] MAGNESIUMon 04-30-2023 Magnesium [Mass/Vol] 1.7 mg/dL Low 1.9-2.7 [facility] Comment on above: Performed By: #### L [id number] ####[facility] ([facility])[address] [place] [address] PHOSPHORUSon 04-30-2023 Magnesium [Mass/Vol] 4.0 mg/dL Normal 2.5-5.0 [facility] Comment on above: Performed By: #### L [id number] ####[facility] ([facility])[address] [place] [address] POCT GLUCOSE METER UNSOLICIT ED RESULTSon 04-30-2023 Glucose [Mass/Vol] 123 mg/dL High 70-105 [facility] Comment on above: Order Comment: Waive d Testing in the ED is performed under the ED CLIA certificate #[id number]. Result Comment: [email or web address] Performed By: #### L [id number] ####[facility] ([facility])[address] [place] [address] Glucose [Mass/Vol] 138 mg/dL High 70-105 [facility] Comment on above: Order Comment: Waive d Testing in the ED is performed under the ED CLIA certificate #[id number]. Result Comment: [email or web address] Performed By: #### L [id number] ####[facility] ([facility])[address] [place] [address] 30on 04-29-2023 30 Normal [facility] 30 Normal [facility] 30 Normal [facility] BASIC METABOLIC PANELon 11- Anion gap [Moles/Vol] 11 mmol/L Normal 7-20 [facility] Comment on above: Performed By: #### L [id number] ####[facility] ([facility])[address] [place] [address] Calcium [Mass/Vol] 8.4 mg/dL Low 8.6-10.3 [facility] Comment on above: Performed By: #### L [id number] ####[facility] ([facility])[address] [place] [address] Chloride [Moles/Vol] 109 mmol/L High 98-107 [facility] Comment on above: Performed By: #### L [id number] ####[facility] ([facility])[address] [place] [address] CO2 [Moles/Vol] 20 mmol/L Low 21-31 [facility] Comment on above: Performed By: #### L [id number] ####[facility] ([facility])[address] [place] [address] Creatinine [Mass/Vol] 0.68 mg/dL Low 0.70-1.30 [facility] Comment on above: Performed By: #### L [id number] ####[facility] ([facility])[address] [place] [address] GLOMERULAR FILTRATION RATE ML/MIN/1.73 SQ M.PREDICTED 100.6 mL/min/1.73m*2 Normal >60.0 [facility] Comment on above: Result Comment: [facility]???s estimated glomerular filtration rate (eGFR) will [...] of individuals. Performed By: #### L [id number] ####[facility] ([facility])[address] [place] [address] Glucose [Mass/Vol] 100 mg/dL Normal 70-100 [facility] Comment on above: Performed By: #### L [id number] ####[facility] ([facility])[address] [place] [address] Potassium [Moles/Vol] 3.8 mmol/L Normal 3.5-5.1 [facility] Comment on above: Performed By: #### L [id number] ####[facility] ([facility])[address] [facility] [facility] [address] Sodium [Moles/Vol] 136 mmol/L Normal 136-145 [facility] Comment on above: Performed By: #### L [id number] ####[facility] ([facility])[address] [facility] [facility] [address] Urea nitrogen [Mass/Vol] 18 mg/dL Normal 7-25 [facility] Comment on above: Performed By: #### L [id number] ####[facility] ([facility])[address] [place] [address] UREA NITROGEN/CREATININ E (MASS RATIO) IN SER/PLAS 26.5 Normal [facility] Comment on above: Performed By: #### L [id number] ####[facility] ([facility])[address] [facility] [facility] [address] CBCon 04-29-2023 Erythrocyte distribution width (RBC) [Ratio] 13.6 % Normal 11.5-15.0 [facility] Comment on above: Performed By: #### L [id number] ####[facility] ([facility])[address] [place] [address] ERYTHROCYTE MEAN CORPUSCULAR HEMOGLOBIN CONCENTRATION (G/DL) BY AUTOMATED 33.7 g/dL Normal 32.0-35.0 [facility] Comment on above: Performed By: #### L [id number] ####[facility] ([facility])[address], [place] [address] Hematocrit (Bld) [Volume fraction] 27.0 % Low 39.0-55.0 [facility] Comment on above: Performed By: #### L [id number] ####[facility] ([facility])[address] [place] [address] Hemoglobin (Bld) [Mass/Vol] 9.1 g/dL Low 13.0-17.0 [facility] Comment on above: Performed By: #### L [id number] ####[facility] ([facility])[address] [place] [address] MCH (RBC) [Entitic mass] 30.4 pg Normal 27.0-33.0 [facility] Comment on above: Performed By: #### L [id number] ####[facility] ([facility])[address] [place] [address] MCV (RBC) [Entitic vol] 90.3 fL Normal 82.0-98.0 [facility] Comment on above: Performed By: #### L [id number] ####[facility] ([facility])[address] [place] [address] PLATELETS (10*3/UL) IN BLOOD AUTOMATED COUNT 188 10*3/uL Normal 150-400 [facility] Comment on above: Performed By: #### L [id number] ####[facility] ([facility])[address] [place] [address] RBC (Bld) [#/Vol] 2.99 10*6/uL Low 4.20-5.70 [facility] Comment on above: Performed By: #### L [id number] ####[facility] ([facility])[address] [place] [address] WBC (Bld) [#/Vol] 7.24 10*3/uL Normal 4.00-10.60 [facility] Comment on above: Performed By: #### L [id number] ####[facility] ([facility])[address] [place] [address] CONSULTon 04-29-2023 CONSULT Normal [facility] MAGNESIUMon 04-29-2023 Magnesium [Mass/Vol] 1.7 mg/dL Low 1.9-2.7 [facility] Comment on above: Performed By: #### L [id number] ####[facility] ([facility])[address] [place] [address] PHOSPHORUSon 04-29-2023 Magnesium [Mass/Vol] 3.9 mg/dL Normal 2.5-5.0 [facility] Comment on above: Performed By: #### L [id number] ####[facility] ([facility])[address] [place] [address] POCT GLUCOSE METER UNSOLICIT ED RESULTSon 04-29-2023 Glucose [Mass/Vol] 111 mg/dL High 70-105 [facility] Comment on above: Order Comment: Waive d Testing in the ED is performed under the ED CLIA certificate #[id number]. Result Comment: [email or web address] Performed By: #### L [id number] ####[facility] ([facility])[address] [place] [address] Glucose [Mass/Vol] 133 mg/dL High 70-105 [facility] Comment on above: Order Comment: Waive d Testing in the ED is performed under the ED CLIA certificate #[id number]. Result Comment: [email or web address] Performed By: #### L [id number] ####[facility] ([facility])[address] [place] [address] Glucose [Mass/Vol] 128 mg/dL High 70-105 [facility] Comment on above: Order Comment: Waive d Testing in the ED is performed under the ED CLIA certificate #[id number]. Result Comment: [email or web address] Performed By: #### L [id number] ####[facility] ([facility])[address] [place] [address] 30on 04-28-2023 30 Normal [facility] BASIC METABOLIC PANELon 04-17 Anion gap [Moles/Vol] 10 mmol/L Normal 7-20 [facility] Comment on above: Performed By: #### L [id number] ####[facility] ([facility])[address] [place] [address] Calcium [Mass/Vol] 8.1 mg/dL Low 8.6-10.3 [facility] Comment on above: Performed By: #### L [id number] ####[facility] ([facility])[address] [place] [address] Chloride [Moles/Vol] 109 mmol/L High 98-107 [facility] Comment on above: Performed By: #### L [id number] ####[facility] ([facility])[address] [place] [address] CO2 [Moles/Vol] 22 mmol/L Normal 21-31 [facility] Comment on above: Performed By: #### L [id number] ####[facility] ([facility])[address] [place] [address] Creatinine [Mass/Vol] 0.62 mg/dL Low 0.70-1.30 [facility] Comment on above: Performed By: #### L [id number] ####[facility] ([facility])[address] [place] [address] GLOMERULAR FILTRATION RATE ML/MIN/1.73 SQ M.PREDICTED 103.5 mL/min/1.73m*2 Normal >60.0 [facility] Comment on above: Result Comment: [facility]???s estimated glomerular filtration rate (eGFR) will [...] of individuals. Performed By: #### L [id number] ####[facility] ([facility])[address] [place] [address] Glucose [Mass/Vol] 102 mg/dL High 70-100 [facility] Comment on above: Performed By: #### L [id number] ####[facility] ([facility])[address] [place] [address] Potassium [Moles/Vol] 3.4 mmol/L Low 3.5-5.1 [facility] Comment on above: Performed By: #### L [id number] ####[facility] ([facility])[address] [place] [address] Sodium [Moles/Vol] 138 mmol/L Normal 136-145 [facility] Comment on above: Performed By: #### L [id number] ####[facility] ([facility])[address] [place] [address] Urea nitrogen [Mass/Vol] 22 mg/dL Normal 7-25 [facility] Comment on above: Performed By: #### L [id number] ####[facility] ([facility])[address] [place] [address] UREA NITROGEN/CREATININ E (MASS RATIO) IN SER/PLAS 35.5 Normal [facility] Comment on above: Performed By: #### L [id number] ####[facility] ([facility])[address] [place] [address] CBC WITH AUTO DIFFERENTIALon 04-28-2023 Basophils (Bld) [#/Vol] 0.02 10*3/uL Normal 0.00-0.20 [facility] Comment on above: Performed By: #### L [id number] ####[facility] ([facility])[address] [place] [address] Basophils/100 WBC (Bld) 0.2 % Normal 0.0-1.0 [facility] Comment on above: Performed By: #### L [id number] ####[facility] ([facility])[address] [place] [address] Eosinophils (Bld) [#/Vol] 0.09 10*3/uL Normal 0.00-0.50 [facility] Comment on above: Performed By: #### L [id number] ####[facility] ([facility])[address] [place] [address] Eosinophils/100 WBC (Bld) 1.1 % Normal 0.0-6.0 [facility] Comment on above: Performed By: #### L [id number] ####[facility] ([facility])[address] [place] [address] Erythrocyte distribution width (RBC) [Ratio] 13.6 % Normal 11.5-15.0 [facility] Comment on above: Performed By: #### L [id number] ####[facility] ([facility])[address] [place] [address] ERYTHROCYTE MEAN CORPUSCULAR HEMOGLOBIN CONCENTRATION (G/DL) BY AUTOMATED 33.1 g/dL Normal 32.0-35.0 [facility] Comment on above: Performed By: #### L [id number] ####[facility] ([facility])[address] [place] [address] Hematocrit (Bld) [Volume fraction] 32.3 % Low 39.0-55.0 [facility] Comment on above: Performed By: #### L [id number] ####[facility] ([facility])[address] [place] [address] Hemoglobin (Bld) [Mass/Vol] 10.7 g/dL Low 13.0-17.0 [facility] Comment on above: Performed By: #### L [id number] ####[facility] ([facility])[address] [place] [address] Immature granulocytes (Bld) [#/Vol] 0.06 10*3/uL Normal 0.00-0.20 [facility] Comment on above: Performed By: #### L [id number] ####[facility] ([facility])[address] [place] [address] Immature granulocytes/100 WBC (Bld) 0.7 % Normal 0.0-1.0 [facility] Comment on above: Performed By: #### L [id number] ####[facility] ([facility])[address] [place] [address] Lymphocytes (Bld) [#/Vol] 1.82 10*3/uL Normal 1.20-4.00 [facility] Comment on above: Performed By: #### L [id number] ####[facility] ([facility])[address] [place] [address] Lymphocytes/100 WBC (Bld) 22.2 % Normal 20.0-45.0 [facility] Comment on above: Performed By: #### L [id number] ####[facility] ([facility])[address] [place] [address] MCH (RBC) [Entitic mass] 30.3 pg Normal 27.0-33.0 [facility] Comment on above: Performed By: #### L [id number] ####[facility] ([facility])[address] [place] [address] MCV (RBC) [Entitic vol] 91.5 fL Normal 82.0-98.0 [facility] Comment on above: Performed By: #### L [id number] ####[facility] ([facility])[address] [place] [address] Monocytes (Bld) [#/Vol] 0.67 10*3/uL Normal 0.10-1.00 [facility] Comment on above: Performed By: #### L [id number] ####[facility] ([facility])[address] [place] [address] Monocytes/100 WBC (Bld) 8.2 % Normal 5.0-12.0 [facility] Comment on above: Performed By: #### L [id number] ####[facility] ([facility])[address] [place] [address] Neutrophils (Bld) [#/Vol] 5.55 10*3/uL Normal 1.60-7.60 [facility] Comment on above: Performed By: #### L [id number] ####[facility] ([facility])[address] [place] [address] Neutrophils/100 WBC (Bld) 67.6 % Normal 40.0-72.0 [facility] Comment on above: Performed By: #### L [id number] ####[facility] ([facility])[address] [place] [address] NRBC (PER 100 WBCS) BY AUTOMATED COUNT 0.0 % Normal 0 [facility] Comment on above: Performed By: #### L [id number] ####[facility] ([facility])[address] [place] [address] PLATELETS (10*3/UL) IN BLOOD AUTOMATED COUNT 160 10*3/uL Normal 150-400 [facility] Comment on above: Performed By: #### L [id number] ####[facility] ([facility])[address] [place] [address] RBC (Bld) [#/Vol] 3.53 10*6/uL Low 4.20-5.70 [facility] Comment on above: Performed By: #### L [id number] ####[facility] ([facility])[address] [place] [address] WBC (Bld) [#/Vol] 8.21 10*3/uL Normal 4.00-10.60 [facility] Comment on above: Performed By: #### L [id number] ####[facility] ([facility])[address], [place] [address] MAGNESIUMon 04-28-2023 Magnesium [Mass/Vol] 1.7 mg/dL Low 1.9-2.7 [facility] Comment on above: Performed By: #### L [id number] ####[facility] ([facility])[address] [place] [address] PHOSPHORUSon 04-28-2023 Magnesium [Mass/Vol] 3.9 mg/dL Normal 2.5-5.0 [facility] Comment on above: Performed By: #### L [id number] ####[facility] ([facility])[address] [place] [address] POCT GLUCOSE METER UNSOLICIT ED RESULTSon 04-28-2023 Glucose [Mass/Vol] 111 mg/dL High 70-105 [facility] Comment on above: Order Comment: Waive d Testing in the ED is performed under the ED CLIA certificate #[id number]. Result Comment: [email or web address] Performed By: #### L [id number] ####[facility] ([facility])[address] [place] [address] Glucose [Mass/Vol] 86 mg/dL Normal 70-105 [facility] Comment on above: Order Comment: Waive d Testing in the ED is performed under the ED CLIA certificate #[id number]. Result Comment: [email or web address] Performed By: #### L [id number] ####[facility] ([facility])[address] [place] [address] Glucose [Mass/Vol] 159 mg/dL High 70-105 [facility] Comment on above: Order Comment: Waive d Testing in the ED is performed under the ED CLIA certificate #[id number]. Result Comment: [email or web address] Performed By: #### L [id number] ####[facility] ([facility])[address] [place] [address] Glucose [Mass/Vol] 109 mg/dL High 70-105 [facility] Comment on above: Order Comment: Waive d Testing in the ED is performed under the ED CLIA certificate #[id number]. Result Comment: [email or web address] Performed By: #### L [id number] ####[facility] ([facility])[address] [place] [address] BASIC METABOLIC PANELon 04-17 Anion gap [Moles/Vol] 11 mmol/L Normal 7-20 [facility] Comment on above: Performed By: #### L [id number] ####[facility] ([facility])[address] [place] [address] Calcium [Mass/Vol] 8.2 mg/dL Low 8.6-10.3 [facility] Comment on above: Performed By: #### L [id number] ####[facility] ([facility])[address] [place] [address] Chloride [Moles/Vol] 112 mmol/L High 98-107 [facility] Comment on above: Performed By: #### L [id number] ####[facility] ([facility])[address] [place] [address] CO2 [Moles/Vol] 23 mmol/L Normal 21-31 [facility] Comment on above: Performed By: #### L [id number] ####[facility] ([facility])[address] [place] [address] Creatinine [Mass/Vol] 0.64 mg/dL Low 0.70-1.30 [facility] Comment on above: Performed By: #### L [id number] ####[facility] ([facility])[address] [place] [address] GLOMERULAR FILTRATION RATE ML/MIN/1.73 SQ M.PREDICTED 102.5 mL/min/1.73m*2 Normal >60.0 [facility] Comment on above: Result Comment: [facility]???s estimated glomerular filtration rate (eGFR) will [...] of individuals. Performed By: #### L [id number] ####[facility] ([facility])[address] [place] [address] Glucose [Mass/Vol] 116 mg/dL High 70-100 [facility] Comment on above: Performed By: #### L [id number] ####[facility] ([facility])[address] [place] [address] Potassium [Moles/Vol] 3.9 mmol/L Normal 3.5-5.1 [facility] Comment on above: Performed By: #### L [id number] ####[facility] ([facility])[address] [place] [address] Sodium [Moles/Vol] 142 mmol/L Normal 136-145 [facility] Comment on above: Performed By: #### L [id number] ####[facility] ([facility])[address] [place] [address] Urea nitrogen [Mass/Vol] 22 mg/dL Normal 7-25 [facility] Comment on above: Performed By: #### L [id number] ####[facility] ([facility])[address] [place] [address] UREA NITROGEN/CREATININ E (MASS RATIO) IN SER/PLAS 34.4 Normal [facility] Comment on above: Performed By: #### L [id number] ####[facility] ([facility])[address] [place] [address] CBC WITH AUTO DIFFERENTIALon 04-27-2023 Basophils (Bld) [#/Vol] 0.02 10*3/uL Normal 0.00-0.20 [facility] Comment on above: Performed By: #### L [id number] ####[facility] ([facility])[address] [place] [address] Basophils/100 WBC (Bld) 0.2 % Normal 0.0-1.0 [facility] Comment on above: Performed By: #### L [id number] ####[facility] ([facility])[address] [place] [address] Eosinophils (Bld) [#/Vol] 0.05 10*3/uL Normal 0.00-0.50 [facility] Comment on above: Performed By: #### L [id number] ####[facility] ([facility])[address] [place] [address] Eosinophils/100 WBC (Bld) 0.5 % Normal 0.0-6.0 [facility] Comment on above: Performed By: #### L [id number] ####[facility] ([facility])[address] [place] [address] Erythrocyte distribution width (RBC) [Ratio] 13.6 % Normal 11.5-15.0 [facility] Comment on above: Performed By: #### L [id number] ####[facility] ([facility])[address] [place] [address] ERYTHROCYTE MEAN CORPUSCULAR HEMOGLOBIN CONCENTRATION (G/DL) BY AUTOMATED 33.7 g/dL Normal 32.0-35.0 [facility] Comment on above: Performed By: #### L [id number] ####[facility] ([facility])[address] [place] [address] Hematocrit (Bld) [Volume fraction] 26.4 % Low 39.0-55.0 [facility] Comment on above: Performed By: #### L [id number] ####[facility] (BEAKER)[address] [place] [address] Hemoglobin (Bld) [Mass/Vol] 8.9 g/dL Low 13.0-17.0 [facility] Comment on above: Performed By: #### L [id number] ####[facility] (BEAKER)[address] [place] [address] Immature granulocytes (Bld) [#/Vol] 0.07 10*3/uL Normal 0.00-0.20 [facility] Comment on above: Performed By: #### L [id number] ####[facility] (BEAKER)[address] [place] [address] Immature granulocytes/100 WBC (Bld) 0.8 % Normal 0.0-1.0 [facility] Comment on above: Performed By: #### L [id number] ####[facility] (BEAKER)[address] [place] [address] Lymphocytes (Bld) [#/Vol] 1.24 10*3/uL Normal 1.20-4.00 [facility] Comment on above: Performed By: #### L [id number] ####[facility] (BEAKER)[address] [place] [address] Lymphocytes/100 WBC (Bld) 13.3 % Low 20.0-45.0 [facility] Comment on above: Performed By: #### L [id number] ####[facility] (BEAKER)[address] [place] [address] MCH (RBC) [Entitic mass] 30.5 pg Normal 27.0-33.0 [facility] Comment on above: Performed By: #### L [id number] ####[facility] (BEAKER)[address] [place] [address] MCV (RBC) [Entitic vol] 90.4 fL Normal 82.0-98.0 [facility] Comment on above: Performed By: #### L [id number] ####[facility] (BEAKER)[address] [place] [address] Monocytes (Bld) [#/Vol] 0.72 10*3/uL Normal 0.10-1.00 [facility] Comment on above: Performed By: #### L [id number] ####[facility] (BEAKER)[address] [place] [address] Monocytes/100 WBC (Bld) 7.7 % Normal 5.0-12.0 [facility] Comment on above: Performed By: #### L [id number] ####[facility] (BEAKER)[address] [place] [address] Neutrophils (Bld) [#/Vol] 7.22 10*3/uL Normal 1.60-7.60 [facility] Comment on above: Performed By: #### L [id number] ####[facility] (BEAKER)[address] [place] [address] Neutrophils/100 WBC (Bld) 77.5 % High 40.0-72.0 [facility] Comment on above: Performed By: #### L [id number] ####[facility] ([facility])[address] [address] NRBC (PER 100 WBCS) BY AUTOMATED COUNT 0.0 % Normal 0 [facility] Comment on above: Performed By: #### L [id number] ####[facility] ([facility])[address] [address] PLATELETS (10*3/UL) IN BLOOD AUTOMATED COUNT 100 10*3/uL Low 150-400 [facility] Comment on above: Performed By: #### L [id number] ####[facility] ([facility])[address] [address] RBC (Bld) [#/Vol] 2.92 10*6/uL Low 4.20-5.70 [facility] Comment on above: Performed By: #### L [id number] ####[facility] ([facility])[address] [address] WBC (Bld) [#/Vol] 9.32 10*3/uL Normal 4.00-10.60 [facility] Comment on above: Performed By: #### L [id number] ####[facility] ([facility])[address] [place] [address] MAGNESIUMon 04-27-2023 Magnesium [Mass/Vol] 1.9 mg/dL Normal 1.9-2.7 [facility] Comment on above: Performed By: #### L [id number] ####[facility] ([facility])[address] [place] [address] PHOSPHORUSon 04-27-2023 Magnesium [Mass/Vol] 3.5 mg/dL Normal 2.5-5.0 [facility] Comment on above: Performed By: #### L [id number] ####[facility] ([facility])[address] [address] POCT GLUCOSE METER UNSOLICIT ED RESULTSon 04-27-2023 Glucose [Mass/Vol] 100 mg/dL Normal 70-105 [facility] Comment on above: Order Comment: Waive d Testing in the ED is performed under the ED CLIA certificate #[id number]. Result Comment: [email or web address] Performed By: #### L [id number] ####[facility] ([facility])[address] [place] [address] Glucose [Mass/Vol] 165 mg/dL High 70-105 [facility] Comment on above: Order Comment: Waive d Testing in the ED is performed under the ED CLIA certificate #[id number]. Result Comment: [email or web address] Performed By: #### L [id number] ####[facility] ([facility])[address] [place] [address] Glucose [Mass/Vol] 157 mg/dL High 70-105 [facility] Comment on above: Order Comment: Waive d Testing in the ED is performed under the ED CLIA certificate #[id number]. Result Comment: [email or web address] Performed By: #### L [id number] ####[facility] ([email or web address])[address] [place] [address] Glucose [Mass/Vol] 112 mg/dL High 70-105 [facility] Comment on above: Order Comment: Waive d Testing in the ED is performed under the ED CLIA certificate #[id number]. Result Comment: [email or web address] Performed By: #### L [id number] ####[facility] ([facility])[address] [place] [address] PROTIME-INRon 04-27-2023 INR IN PPP BY COAGULATION ASSAY 1.21 High 0.90-1.10 [facility] Comment on above: Result Comment: ACCC [...] CHEST 1995;[id number]. Performed By: #### L [id number] ####[facility] ([employer] [place] [address] PROTHROMBIN TIME (PT) IN PPP BY COAGULATION ASSAY 15.3 Seconds High 12.3-14.8 [facility] Comment on above: Performed By: #### L [id number] ####[facility] ([employer] [facility] [facility] [address] 30on 04-26-2023 30 Normal [facility] 30 Normal [facility] 30 Normal [facility] 30 Normal [facility] BASIC METABOLIC PANELon 11- Anion gap [Moles/Vol] 10 mmol/L Normal 7-20 [facility] Comment on above: Performed By: #### L [id number] ####[facility] ([employer] [facility] [facility] [address] Calcium [Mass/Vol] 8.5 mg/dL Low 8.6-10.3 [facility] Comment on above: Performed By: #### L [id number] ####[facility] ([employer] [facility] [facility] [address] Chloride [Moles/Vol] 109 mmol/L High 98-107 [facility] Comment on above: Performed By: #### L [id number] ####[facility] GI Track)[address] [facility] [facility] [address] CO2 [Moles/Vol] 25 mmol/L Normal 21-31 [facility] Comment on above: Performed By: #### L [id number] ####[facility] ([facility])[address] [place] [address] Creatinine [Mass/Vol] 0.62 mg/dL Low 0.70-1.30 [facility] Comment on above: Performed By: #### L [id number] ####[facility] ([facility])[address] [place] [address] GLOMERULAR FILTRATION RATE ML/MIN/1.73 SQ M.PREDICTED 103.5 mL/min/1.73m*2 Normal >60.0 [facility] Comment on above: Result Comment: [facility]???s estimated glomerular filtration rate (eGFR) will [...] of individuals. Performed By: #### L [id number] ####[facility] ([facility])[address] [place] [address] Glucose [Mass/Vol] 136 mg/dL High 70-100 [facility] Comment on above: Performed By: #### L [id number] ####[facility] ([facility])[address] [place] [address] Potassium [Moles/Vol] 3.6 mmol/L Normal 3.5-5.1 [facility] Comment on above: Performed By: #### L [id number] ####[facility] ([facility])[address] [address] Sodium [Moles/Vol] 140 mmol/L Normal 136-145 [facility] Comment on above: Performed By: #### L [id number] ####[facility] (BEAKER)[address] [place] [address] Urea nitrogen [Mass/Vol] 18 mg/dL Normal 7-25 [facility] Comment on above: Performed By: #### L [id number] ####[facility] (BEAKER)[address] [place] [address] UREA NITROGEN/CREATININ E (MASS RATIO) IN SER/PLAS 29.0 Normal [facility] Comment on above: Performed By: #### L [id number] ####[facility] (BEAKER)[address] [place] [address] Anion gap [Moles/Vol] 9 mmol/L Normal 7-20 [facility] Comment on above: Performed By: #### L [id number] ####[facility] (BEAKER)[address] [place] [address] Calcium [Mass/Vol] 7.8 mg/dL Low 8.6-10.3 [facility] Comment on above: Performed By: #### L [id number] ####[facility] (BEAKER)[address] [place] [address] Chloride [Moles/Vol] 112 mmol/L High 98-107 [facility] Comment on above: Performed By: #### L [id number] ####[facility] (BEAKER)[address] [place] [address] CO2 [Moles/Vol] 23 mmol/L Normal 21-31 [facility] Comment on above: Performed By: #### L [id number] ####[facility] (BEAKER)[address] [place] [address] Creatinine [Mass/Vol] 0.61 mg/dL Low 0.70-1.30 [facility] Comment on above: Performed By: #### L [id number] ####[facility] (BEAKER)[address] [place] [address] GLOMERULAR FILTRATION RATE ML/MIN/1.73 SQ M.PREDICTED 104.0 mL/min/1.73m*2 Normal >60.0 [facility] Comment on above: Result Comment: [facility]???s estimated glomerular filtration rate (eGFR) will [...] of individuals. Performed By: #### L [id number] ####[facility] ([facility])[address] [place] [address] Glucose [Mass/Vol] 112 mg/dL High 70-100 [facility] Comment on above: Performed By: #### L [id number] ####[facility] ([facility])[address] [place] [address] Potassium [Moles/Vol] 3.4 mmol/L Low 3.5-5.1 [facility] Comment on above: Performed By: #### L [id number] ####[facility] ([facility])[address] [place] [address] Sodium [Moles/Vol] 141 mmol/L Normal 136-145 [facility] Comment on above: Performed By: #### L [id number] ####[facility] (BEAKER)[address] [place] [address] Urea nitrogen [Mass/Vol] 14 mg/dL Normal 7-25 [facility] Comment on above: Performed By: #### L [id number] ####[facility] ([facility])[address] [place] [address] UREA NITROGEN/CREATININ E (MASS RATIO) IN SER/PLAS 23.0 Normal [facility] Comment on above: Performed By: #### L [id number] ####[facility] ([facility])[address] [place] [address] CBCon 04-26-2023 Erythrocyte distribution width (RBC) [Ratio] 13.9 % Normal 11.5-15.0 [facility] Comment on above: Performed By: #### L [id number] ####[facility] ([facility])[address] [place] [address] ERYTHROCYTE MEAN CORPUSCULAR HEMOGLOBIN CONCENTRATION (G/DL) BY AUTOMATED 33.7 g/dL Normal 32.0-35.0 [facility] Comment on above: Performed By: #### L [id number] ####[facility] ([facility])[address] [place] [address] Hematocrit (Bld) [Volume fraction] 24.3 % Low 39.0-55.0 [facility] Comment on above: Performed By: #### L [id number] ####[facility] ([facility])[address] [place] [address] Hemoglobin (Bld) [Mass/Vol] 8.2 g/dL Low 13.0-17.0 [facility] Comment on above: Performed By: #### L [id number] ####[facility] ([facility])[address] [place] [address] IMMATURE PLATELET FRACTION % 4.3 % Normal 0.8-6.3 [facility] Comment on above: Performed By: #### L [id number] ####[facility] ([facility])[address] [place] [address] MCH (RBC) [Entitic mass] 30.4 pg Normal 27.0-33.0 [facility] Comment on above: Performed By: #### L [id number] ####[facility] ([facility])[address] [place] [address] MCV (RBC) [Entitic vol] 90.0 fL Normal 82.0-98.0 [facility] Comment on above: Performed By: #### L [id number] ####[facility] ([facility])[address] [place] [address] PLATELETS (10*3/UL) IN BLOOD AUTOMATED COUNT 71 10*3/uL Low 150-400 [facility] Comment on above: Performed By: #### L [id number] ####[facility] (BEAKER)[address] [place] [address] RBC (Bld) [#/Vol] 2.70 10*6/uL Low 4.20-5.70 [facility] Comment on above: Performed By: #### L [id number] ####[facility] ([facility])[address] [place] [address] WBC (Bld) [#/Vol] 7.74 10*3/uL Normal 4.00-10.60 [facility] Comment on above: Performed By: #### L [id number] ####[facility] ([facility])[address] [place] [address] CO-OXIMETRYon 04-26-2023 CARBOXYHEMOGLOBIN/ HEMOGLOBIN TOTAL % IN BLOOD 1.4 % Normal [facility] Comment on above: Performed By: #### L [id number] ####[facility] [id number] [facility] [address] [place] Hemoglobin (Bld) [Mass/Vol] 8.5 g/dL Normal [facility] Comment on above: Performed By: #### L [id number] ####[facility] [id number] [place] [address] [place] METHEMOGLOBIN/100 IN BLOOD 0.3 % Normal 0.0-1.5 [facility] Comment on above: Performed By: #### L [id number] ####[facility] [id number] [place] [address] [place] Oxygen saturation in Blood 57.1 % Normal [facility] Comment on above: Performed By: #### L [id number] ####[facility] [id number] [place] [address] [place] OXYGENATED HEMOGLOBIN IN BLOOD 56.1 % Normal [facility] Comment on above: Performed By: #### L [id number] ####[facility] [id number] [place] [address] [place] IRON AND TIBCon 04-26-2023 IRON (UG/DL) IN SER/PLAS 16 ug/dL Low 50-212 [facility] Comment on above: Performed By: #### L [id number] ####[facility] ([facility])[address] [place] [address] IRON BINDING CAPACITY (UG/DL) IN SER/PLAS 143 ug/dL Low 250-450 [facility] Comment on above: Performed By: #### L [id number] ####[facility] ([facility])[address] [place] [address] IRON BINDING CAPACITY.UNSATURAT ED (UG/DL) IN SER/PLAS 127.0 ug/dL Low 155.0-355.0 [facility] Comment on above: Performed By: #### L [id number] ####[facility] ([facility])[address] [place] [address] IRON SATURATION (%) IN SER/PLAS 11 % Low 20-50 [facility] Comment on above: Performed By: #### L [id number] ####[facility] ([facility])[address] [place] [address] LACTIC ACID, PLASMAon 2022 LACTATE (MMOL/L) IN SER/PLAS 0.6 mmol/L Normal 0.5-2.2 [facility] Comment on above: Performed By: #### L [id number] ####[facility] (BEAKER)[address] [place] [address] MAGNESIUMon 04-26-2023 Magnesium [Mass/Vol] 1.6 mg/dL Low 1.9-2.7 [facility] Comment on above: Performed By: #### L [id number] ####[facility] (BEAKER)[address] [place] [address] Magnesium [Mass/Vol] 1.7 mg/dL Low 1.9-2.7 [facility] Comment on above: Performed By: #### L [id number] ####[facility] (BEAKER)[address] [place] [address] PHOSPHORUSon 04-26-2023 Magnesium [Mass/Vol] 3.4 mg/dL Normal 2.5-5.0 [facility] Comment on above: Performed By: #### L [id number] ####[facility] ([facility])[address] [place] [address] Magnesium [Mass/Vol] 3.7 mg/dL Normal 2.5-5.0 [facility] Comment on above: Performed By: #### L [id number] ####[facility] ([facility])[address] [place] [address] POCT GLUCOSE METER UNSOLICIT ED RESULTSon 04-26-2023 Glucose [Mass/Vol] 134 mg/dL High 70-105 [facility] Comment on above: Order Comment: Waive d Testing in the ED is performed under the ED CLIA certificate #[id number]. Result Comment: [email or web address] Performed By: #### L [id number] ####[facility] ([facility])[address] [place] [address] Glucose [Mass/Vol] 129 mg/dL High 70-105 [facility] Comment on above: Order Comment: Waive d Testing in the ED is performed under the ED CLIA certificate #[id number]. Result Comment: [email or web address] [email or web address] Performed By: #### L [id number] ####[facility] ([facility])[address] [place] [address] Glucose [Mass/Vol] 121 mg/dL High 70-105 [facility] Comment on above: Order Comment: Waive d Testing in the ED is performed under the ED CLIA certificate #[id number]. Result Comment: than sen2 Performed By: #### L [id number] ####[facility] ([facility])[address] [place] [address] Glucose [Mass/Vol] 113 mg/dL High 70-105 [facility] Comment on above: Order Comment: Waive d Testing in the ED is performed under the ED CLIA certificate #[id number]. Result Comment: than sen2 Performed By: #### L [id number] ####[facility] ([facility])[address] [place] [address] PREALBUMINon 04-26-2023 Prealbumin [Mass/Vol] 6.4 mg/dL Normal [facility] Comment on above: Performed By: #### L [id number] ####[facility] ([facility])[address] [place] [address] TRANSFERRINon 04-26-2023 Magnesium [Mass/Vol] 82 mg/dL Low 168-348 [facility] Comment on above: Performed By: #### L [id number] ####[facility] ([facility])[address] [place] [address] 30on 04-25-2023 30 Normal [facility] AMMONIAon 04-25-2023 AMMONIA (UMOL/L) IN PLASMA 39 umol/L Normal 18-72 [facility] Comment on above: Performed By: #### L [id number] ####[facility] ([facility])[address] [place] [address] APTTon 04-25-2023 ACTIVATED PARTIAL THROMBOPLASTIN TIME IN PPP BY COAGULATION ASSAY 37.2 Seconds High 25.0-35.0 [facility] Comment on above: Result Comment: Clin ical significance of the APTT is questionable in the presence of heparin. Performed By: #### L [id number] ####[facility] ([facility])[address] [place] [address] BASIC METABOLIC PANELon Anion gap [Moles/Vol] 9 mmol/L Normal 7-20 [facility] Comment on above: Performed By: #### L [id number] ####[facility] ([facility])[address] [place] [address] Calcium [Mass/Vol] 8.2 mg/dL Low 8.6-10.3 [facility] Comment on above: Performed By: #### L [id number] ####[facility] ([facility])[address] [place] [address] Chloride [Moles/Vol] 111 mmol/L High 98-107 [facility] Comment on above: Performed By: #### L [id number] ####[facility] ([facility])[address] [place] [address] CO2 [Moles/Vol] 24 mmol/L Normal 21-31 [facility] Comment on above: Performed By: #### L [id number] ####[facility] ([facility])[address] [place] [address] Creatinine [Mass/Vol] 0.71 mg/dL Normal 0.70-1.30 [facility] Comment on above: Performed By: #### L [id number] ####[facility] ([facility])[address] [facility] [address] GLOMERULAR FILTRATION RATE ML/MIN/1.73 SQ M.PREDICTED 99.3 mL/min/1.73m*2 Normal >60.0 [facility] Comment on above: Result Comment: [facility]???s estimated glomerular filtration rate (eGFR) will [...] of individuals. Performed By: #### L [id number] ####[facility] ([facility])[address] [facility] [address] Glucose [Mass/Vol] 124 mg/dL High 70-100 [facility] Comment on above: Performed By: #### L [id number] ####[facility] ([facility])[address] [place] [address] Potassium [Moles/Vol] 3.9 mmol/L Normal 3.5-5.1 [facility] Comment on above: Performed By: #### L [id number] ####[facility] ([facility])[address] [address] Sodium [Moles/Vol] 140 mmol/L Normal 136-145 [facility] Comment on above: Performed By: #### L [id number] ####[facility] (BEAKER)[address] [place] [address] Urea nitrogen [Mass/Vol] 17 mg/dL Normal 7-25 [facility] Comment on above: Performed By: #### L [id number] ####[facility] (BEAKER)[address] [place] [address] UREA NITROGEN/CREATININ E (MASS RATIO) IN SER/PLAS 23.9 Normal [facility] Comment on above: Performed By: #### L [id number] ####[facility] ([facility])[address] [address] CBCon 04-25-2023 Erythrocyte distribution width (RBC) [Ratio] 14.0 % Normal 11.5-15.0 [facility] Comment on above: Performed By: #### L [id number] ####[facility] ([facility])[address] [place] [address] ERYTHROCYTE MEAN CORPUSCULAR HEMOGLOBIN CONCENTRATION (G/DL) BY AUTOMATED 34.1 g/dL Normal 32.0-35.0 [facility] Comment on above: Performed By: #### L [id number] ####[facility] ([facility])[address] [place] [address] Hematocrit (Bld) [Volume fraction] 24.9 % Low 39.0-55.0 [facility] Comment on above: Performed By: #### L [id number] ####[facility] ([facility])[address], [place] [address] Hemoglobin (Bld) [Mass/Vol] 8.5 g/dL Low 13.0-17.0 [facility] Comment on above: Performed By: #### L [id number] ####[facility] (BEAKER)[address] [place] [address] IMMATURE PLATELET FRACTION % 5.1 % Normal 0.8-6.3 [facility] Comment on above: Performed By: #### L [id number] ####[facility] (BEAKER)[address] [place] [address] MCH (RBC) [Entitic mass] 30.7 pg Normal 27.0-33.0 [facility] Comment on above: Performed By: #### L [id number] ####[facility] (BEAKER)[address] [address] MCV (RBC) [Entitic vol] 89.9 fL Normal 82.0-98.0 [facility] Comment on above: Performed By: #### L [id number] ####[facility] (BEAKER)[address] [address] PLATELETS (10*3/UL) IN BLOOD AUTOMATED COUNT 55 10*3/uL Low 150-400 [facility] Comment on above: Performed By: #### L [id number] ####[facility] ([facility])[address] [place] [address] RBC (Bld) [#/Vol] 2.77 10*6/uL Low 4.20-5.70 [facility] Comment on above: Performed By: #### L [id number] ####[facility] (BEAKER)[address] [place] [address] WBC (Bld) [#/Vol] 9.29 10*3/uL Normal 4.00-10.60 [facility] Comment on above: Performed By: #### L [id number] ####[facility] (BEAKER)[address] [place] [address] Erythrocyte distribution width (RBC) [Ratio] 14.6 % Normal 11.5-15.0 [facility] Comment on above: Performed By: #### L [id number] ####[facility] (BEAKER)[address] [place] [address] ERYTHROCYTE MEAN CORPUSCULAR HEMOGLOBIN CONCENTRATION (G/DL) BY AUTOMATED 34.1 g/dL Normal 32.0-35.0 [facility] Comment on above: Performed By: #### L [id number] ####[facility] (BEAKER)[address] [place] [address] Hematocrit (Bld) [Volume fraction] 25.5 % Low 39.0-55.0 [facility] Comment on above: Performed By: #### L [id number] ####[facility] ([facility])[address] [place] [address] Hemoglobin (Bld) [Mass/Vol] 8.7 g/dL Low 13.0-17.0 [facility] Comment on above: Performed By: #### L [id number] ####[facility] ([facility])[address] [place] [address] IMMATURE PLATELET FRACTION % 5.5 % Normal 0.8-6.3 [facility] Comment on above: Performed By: #### L [id number] ####[facility] ([facility])[address] [place] [address] MCH (RBC) [Entitic mass] 31.0 pg Normal 27.0-33.0 [facility] Comment on above: Performed By: #### L [id number] ####[facility] ([facility])[address] [place] [address] MCV (RBC) [Entitic vol] 90.7 fL Normal 82.0-98.0 [facility] Comment on above: Performed By: #### L [id number] ####[facility] ([facility])[address] [place] [address] PLATELETS (10*3/UL) IN BLOOD AUTOMATED COUNT 56 10*3/uL Low 150-400 [facility] Comment on above: Result Comment: P=[id number] , 1D Performed By: #### L [id number] ####[facility] ([facility])[address] [place] [address] RBC (Bld) [#/Vol] 2.81 10*6/uL Low 4.20-5.70 [facility] Comment on above: Performed By: #### L [id number] ####[facility] (BEAKER)[address] [place] [address] WBC (Bld) [#/Vol] 10.33 10*3/uL Normal 4.00-10.60 [facility] Comment on above: Performed By: #### L [id number] ####[facility] ([facility])[address] [place] [address] CO-OXIMETRYon 04-25-2023 CARBOXYHEMOGLOBIN/ HEMOGLOBIN TOTAL % IN BLOOD 0.8 % Normal [facility] Comment on above: Performed By: #### L [id number] ####[facility] [id number] [place] [address] [facility] Hemoglobin (Bld) [Mass/Vol] 7.8 g/dL Normal [facility] Comment on above: Performed By: #### L [id number] ####[facility] [id number] [place] [address] [place] METHEMOGLOBIN/100 IN BLOOD 1.1 % Normal 0.0-1.5 [facility] Comment on above: Performed By: #### L [id number] ####[facility] [id number] [place] [address] [place] Oxygen saturation in Blood 70.2 % Normal [facility] Comment on above: Performed By: #### L [id number] ####[facility] [id number] [place] [address] [place] OXYGENATED HEMOGLOBIN IN BLOOD 68.8 % Normal [facility] Comment on above: Performed By: #### L [id number] ####[facility] [id number] [place] [address] [facility] HEPATIC FUNCTION PANELon Albumin [Mass/Vol] 3.3 g/dL Low 3.5-5.7 [facility] Comment on above: Performed By: #### L [id number] ####[facility] ([facility])[address] [place] [address] ALP [Catalytic activity/Vol] 49 U/L Normal 34-104 [facility] Comment on above: Performed By: #### L [id number] ####[facility] ([facility])[address] [place] [address] ALT [Catalytic activity/Vol] 60 U/L High 7-52 [facility] Comment on above: Performed By: #### L [id number] ####[facility] ([facility])[address] [place] [address] AST [Catalytic activity/Vol] 127 U/L High 13-39 [facility] Comment on above: Performed By: #### L [id number] ####[facility] ([facility])[address] [place] [address] Bilirubin [Mass/Vol] 0.5 mg/dL Normal 0.3-1.0 [facility] Comment on above: Performed By: #### L [id number] ####[facility] ([facility])[address] [place] [address] Magnesium [Mass/Vol] 0.2 mg/dL Normal 0-0.2 [facility] Comment on above: Performed By: #### L [id number] ####[facility] ([facility])[address] [place] [address] Protein [Mass/Vol] 4.8 g/dL Low 6.0-8.3 [facility] Comment on above: Performed By: #### L [id number] ####[facility] ([facility])[address] [place] [address] LACTIC ACID WITH 4 HOUR REFL EXon 04-25-2023 LACTATE (MMOL/L) IN SER/PLAS 1.4 mmol/L Normal 0.5-2.2 [facility] Comment on above: Performed By: #### L [id number] ####[facility] ([facility])[address] [place] [address] MAGNESIUMon 04-25-2023 Magnesium [Mass/Vol] 1.7 mg/dL Low 1.9-2.7 [facility] Comment on above: Performed By: #### L [id number] ####[facility] ([facility])[address] [place] [address] NURSNOTEon 04-25-2023 NURSNOTE Normal [facility] NURSNOTE Normal [facility] PHOSPHORUSon 04-25-2023 Magnesium [Mass/Vol] 2.3 mg/dL Low 2.5-5.0 [facility] Comment on above: Performed By: #### L [id number] ####[facility] ([employer] [place] [address] POCT GLUCOSE METER UNSOLICIT ED RESULTSon 04-25-2023 Glucose [Mass/Vol] 106 mg/dL High 70-105 [facility] Comment on above: Order Comment: Waive d Testing in the ED is performed under the ED CLIA certificate #[id number]. Result Comment: [email or web address] [email or web address] Performed By: #### L [id number] ####[facility] ([employer] [place] [address] Glucose [Mass/Vol] 128 mg/dL High 70-105 [facility] Comment on above: Order Comment: Waive d Testing in the ED is performed under the ED CLIA certificate #[id number]. Result Comment: [email or web address] Performed By: #### L [id number] ####[facility] ([employer] [place] [address] PROTIME-INRon 04-25-2023 INR IN PPP BY COAGULATION ASSAY 1.34 High 0.90-1.10 [facility] Comment on above: Result Comment: ACCC [...] CHEST 1995;108:[id number]. Performed By: #### L [id number] ####[facility] ([employer] [place] [address] PROTHROMBIN TIME (PT) IN PPP BY COAGULATION ASSAY 16.6 Seconds High 12.3-14.8 [facility] Comment on above: Performed By: #### L [id number] ####[facility] ([employer] [place] [address] INR IN PPP BY COAGULATION ASSAY 1.39 High 0.90-1.10 [facility] Comment on above: Result Comment: ACCC [...] CHEST 1995;108:[id number]. Performed By: #### L [id number] ####[facility] ([employer] [place] [address] PROTHROMBIN TIME (PT) IN PPP BY COAGULATION ASSAY 17.1 Seconds High 12.3-14.8 [facility] Comment on above: Performed By: #### L [id number] ####[facility] (BEAKER)[address] [place] [address] 30on 04-24-2023 30 Normal [facility] 30 Normal [facility] 30 Normal [facility] ARTERIAL BLOOD GAS WITH IONI ZED CALCIUMon 04-24-2023 Base excess Calc (Bld) [Moles/Vol] -2.0000 mmol/L Normal -2.0-3.0 [facility] Comment on above: Performed By: #### L [id number] ####[facility] [id number] [place] [address] [facility] CALCIUM IONIZED (MMOL/L) IN BLOOD 1.06 mmol/L Low 1.15-1.33 [facility] Comment on above: Performed By: #### L [id number] ####[facility] [id number] [place] [address] [place] CO2 (Bld) [Partial pressure] 31 mm[Hg] Low 35-48 [facility] Comment on above: Performed By: #### L [id number] ####[facility] [id number] [place] [address] [place] HCO3 (Bld) [Moles/Vol] 21.5 mmol/L Normal 21.0-28.0 [facility] Comment on above: Performed By: #### L [id number] ####[facility] [id number] [place] [address] [place] Oxygen (Bld) [Partial pressure] 118 mm[Hg] High 83-100 [facility] Comment on above: Performed By: #### L [id number] ####[facility] [id number] [place] [address] [place] OXYGEN SATURATION (%) IN ARTERIAL BLOOD 99.4 % High 94.0-98.0 [facility] Comment on above: Performed By: #### L [id number] ####[facility] [id number] [place] [address] [place] pH (Bld) 7.45 [pH] Normal 7.35-7.45 [facility] Comment on above: Performed By: #### L [id number] ####[facility] [id number] [place] [address] [place] SOURCE OF OXYGEN AC/VC Normal [facility] Comment on above: Performed By: #### L [id number] ####[facility] [id number] [place] [address] [place] TIDAL VOLUME (VT) CC 8 Normal [facility] Comment on above: Performed By: #### L [id number] ####[facility] [id number] [place] [address] [facility] BASIC METABOLIC PANELon 11-0 -2022 Anion gap [Moles/Vol] 10 mmol/L Normal 7-20 [facility] Comment on above: Performed By: #### L [id number] ####[facility] (BEAKER)[address] [place] [address] Calcium [Mass/Vol] 8.5 mg/dL Low 8.6-10.3 [facility] Comment on above: Performed By: #### L [id number] ####[facility] (BEAKER)[address] [place] [address] Chloride [Moles/Vol] 113 mmol/L High 98-107 [facility] Comment on above: Performed By: #### L [id number] ####[facility] (BEAKER)[address] [place] [address] CO2 [Moles/Vol] 24 mmol/L Normal 21-31 [facility] Comment on above: Performed By: #### L [id number] ####[facility] (BEAKER)[address] [place] [address] Creatinine [Mass/Vol] 0.83 mg/dL Normal 0.70-1.30 [facility] Comment on above: Performed By: #### L [id number] ####[facility] (BEAKER)[address] [place] [address] GLOMERULAR FILTRATION RATE ML/MIN/1.73 SQ M.PREDICTED 94.7 mL/min/1.73m*2 Normal >60.0 [facility] Comment on above: Result Comment: [facility]???s estimated glomerular filtration rate (eGFR) will [...] of individuals. Performed By: #### L [id number] ####[facility] (BEAKER)[address] [place] [address] Glucose [Mass/Vol] 208 mg/dL High 70-100 [facility] Comment on above: Performed By: #### L [id number] ####[facility] (BEAKER)[address] [place] [address] Potassium [Moles/Vol] 3.6 mmol/L Normal 3.5-5.1 [facility] Comment on above: Performed By: #### L [id number] ####[facility] (BEAKER)[address] [place] [address] Sodium [Moles/Vol] 143 mmol/L Normal 136-145 [facility] Comment on above: Performed By: #### L [id number] ####[facility] (BEAKER)[address] [place] [address] Urea nitrogen [Mass/Vol] 19 mg/dL Normal 7-25 [facility] Comment on above: Performed By: #### L [id number] ####[facility] (BEAKER)[address] [place] [address] UREA NITROGEN/CREATININ E (MASS RATIO) IN SER/PLAS 22.9 Normal [facility] Comment on above: Performed By: #### L [id number] ####[facility] (BEAKER)[address] [place] [address] CALCIUM, IONIZEDon 3 CALCIUM IONIZED (MMOL/L) IN BLOOD 1.20 mmol/L Normal 1.15-1.33 [facility] Comment on above: Performed By: #### C ALCIUM, IONIZED ####[facility] [id number] [place] [address] [place] CBCon 04-24-2023 Erythrocyte distribution width (RBC) [Ratio] 13.9 % Normal 11.5-15.0 [facility] Comment on above: Performed By: #### L [id number] ####[facility] (BEAKER)[address] [place] [address] ERYTHROCYTE MEAN CORPUSCULAR HEMOGLOBIN CONCENTRATION (G/DL) BY AUTOMATED 34.3 g/dL Normal 32.0-35.0 [facility] Comment on above: Performed By: #### L [id number] ####[facility] (BEAKER)[address] [place] [address] Hematocrit (Bld) [Volume fraction] 28.0 % Low 39.0-55.0 [facility] Comment on above: Performed By: #### L [id number] ####[facility] (BEAKER)[address] [place] [address] Hemoglobin (Bld) [Mass/Vol] 9.6 g/dL Low 13.0-17.0 [facility] Comment on above: Performed By: #### L [id number] ####[facility] (BEAKER)[address] [place] [address] IMMATURE PLATELET FRACTION % 5.1 % Normal 0.8-6.3 [facility] Comment on above: Performed By: #### L [id number] ####[facility] (BEAKER)[address] [place] [address] MCH (RBC) [Entitic mass] 30.7 pg Normal 27.0-33.0 [facility] Comment on above: Performed By: #### L [id number] ####[facility] (BEAKER)[address] [place] [address] MCV (RBC) [Entitic vol] 89.5 fL Normal 82.0-98.0 [facility] Comment on above: Performed By: #### L [id number] ####[facility] (BEAKER)[address] [place] [address] PLATELETS (10*3/UL) IN BLOOD AUTOMATED COUNT 69 10*3/uL Low 150-400 [facility] Comment on above: Performed By: #### L [id number] ####[facility] ([facility])[address] [place] [address] RBC (Bld) [#/Vol] 3.13 10*6/uL Low 4.20-5.70 [facility] Comment on above: Performed By: #### L [id number] ####[facility] ([facility])[address] [place] [address] WBC (Bld) [#/Vol] 16.62 10*3/uL High 4.00-10.60 [facility] Comment on above: Performed By: #### L [id number] ####[facility] ([facility])[address] [place] [address] CO-OXIMETRYon 04-24-2023 CARBOXYHEMOGLOBIN/ HEMOGLOBIN TOTAL % IN BLOOD 1.2 % Normal [facility] Comment on above: Performed By: #### L [id number] ####[facility] [id number] [place] [address] [place] Hemoglobin (Bld) [Mass/Vol] 9.6 g/dL Normal [facility] Comment on above: Performed By: #### L [id number] ####[facility] [id number] [place] [address] [place] METHEMOGLOBIN/100 IN BLOOD 0.4 % Normal 0.0-1.5 [facility] Comment on above: Performed By: #### L [id number] ####[facility] [id number] [place] [address] [place] Oxygen saturation in Blood 67.5 % Normal [facility] Comment on above: Performed By: #### L [id number] ####[facility] [id number] [place] [address] [place] OXYGENATED HEMOGLOBIN IN BLOOD 66.4 % Normal [facility] Comment on above: Performed By: #### L [id number] ####[facility] [id number] [place] [address] [place] HEMOGLOBIN AND HEMATOCRIT, B LOODon 04-24-2023 Hematocrit (Bld) [Volume fraction] 28.1 % Low 39.0-55.0 [facility] Comment on above: Performed By: #### L [id number] ####[facility] ([facility])[address] [place] [address] Hemoglobin (Bld) [Mass/Vol] 9.5 g/dL Low 13.0-17.0 [facility] Comment on above: Performed By: #### L [id number] ####[facility] (BEAKER)[address] [place] [address] HEPATIC FUNCTION PANELon Albumin [Mass/Vol] 3.7 g/dL Normal 3.5-5.7 [facility] Comment on above: Performed By: #### L [id number] ####[facility] (BEAKER)[address] [place] [address] ALP [Catalytic activity/Vol] 39 U/L Normal 34-104 [facility] Comment on above: Performed By: #### L [id number] ####[facility] (BEAKER)[address] [place] [address] ALT [Catalytic activity/Vol] 82 U/L High 7-52 [facility] Comment on above: Performed By: #### L [id number] ####[facility] (BEAKER)[address] [place] [address] AST [Catalytic activity/Vol] 229 U/L High 13-39 [facility] Comment on above: Performed By: #### L [id number] ####[facility] (BEAKER)[address] [place] [address] Bilirubin [Mass/Vol] 0.5 mg/dL Normal 0.3-1.0 [facility] Comment on above: Performed By: #### L [id number] ####[facility] ([facility])[address] [place] [address] Magnesium [Mass/Vol] 0.2 mg/dL Normal 0-0.2 [facility] Comment on above: Performed By: #### L [id number] ####[facility] ([facility])[address] [place] [address] Protein [Mass/Vol] 4.9 g/dL Low 6.0-8.3 [facility] Comment on above: Performed By: #### L [id number] ####[facility] ([facility])[address] [place] [address] LACTIC ACID WITH 4 HOUR REFL EXon 04-24-2023 LACTATE (MMOL/L) IN SER/PLAS 1.3 mmol/L Normal 0.5-2.2 [facility] Comment on above: Performed By: #### L [id number] ####[facility] ([facility])[address] [place] [address] Performed By: #### L [id number] ####[facility] ([facility])[address] [place] [address] LACTATE (MMOL/L) IN SER/PLAS 4.0 mmol/L Critically high 0.5-2.2 [facility] Comment on above: Result Comment: Prev ious result verified on 04/23/2023 2300 on specimen/case [id number] called with component Lactate blood venous for procedure Lactic acid, venous, whole blood with value 9.1 mmol/L. Performed By: #### L [id number] ####[facility] ([facility])[address] [facility] [facility] [address] LACTATE (MMOL/L) IN SER/PLAS 9.1 mmol/L Critically high 0.5-2.2 [facility] Comment on above: Result Comment: Prev ious result verified on 04/23/2023 2137 on specimen/case [id number] called with component Lactate blood venous for procedure Lactic acid, venous, whole blood with value 12.1 mmol/L. Performed By: #### L [id number] ####[facility] (BEAKER)[address] [place] [address] MAGNESIUMon 04-24-2023 Magnesium [Mass/Vol] 1.8 mg/dL Low 1.9-2.7 [facility] Comment on above: Performed By: #### L [id number] ####[facility] (BEAKER)[address] [place] [address] MYOGLOBIN, URINEon 3 MYOGLOBIN URINE 2 mg/L High 0-1 [facility] Comment on above: Result Comment: The pH [...] was developed and its performance characteristicsdetermined by [employer]. It has not been cleared orapproved by the [place] Food and Drug Administration. This test wasperformed in a CLIA certified laboratory and is intended forclinical purposes.Performed By: [facility] [employer] [place], [place] [address]Ctxpchkhfn Director: Wenceslao Healy MD, PhDCLIA Number: [id number] Performed By: #### L [id number] ####[facility] ([facility])[address] [place] [address] POCT GLUCOSE METER UNSOLICIT ED RESULTSon 04-24-2023 Glucose [Mass/Vol] 129 mg/dL High 70-105 [facility] Comment on above: Order Comment: Waive d Testing in the ED is performed under the ED CLIA certificate #[id number]. Result Comment: [email or web address] Performed By: #### L [id number] ####[facility] (BEAKER)[address] [place] [address] Glucose [Mass/Vol] 116 mg/dL High 70-105 [facility] Comment on above: Order Comment: Waive d Testing in the ED is performed under the ED CLIA certificate #[id number]. Result Comment: [email or web address] Performed By: #### L [id number] ####[facility] (BEAKER)[address] [place] [address] Glucose [Mass/Vol] 106 mg/dL High 70-105 [facility] Comment on above: Order Comment: Waive d Testing in the ED is performed under the ED CLIA certificate #[id number]. Result Comment: nhay man Performed By: #### L [id number] ####[facility] (BEAKER)[address] [place] [address] Glucose [Mass/Vol] 113 mg/dL High 70-105 [facility] Comment on above: Order Comment: Waive d Testing in the ED is performed under the ED CLIA certificate #[id number]. Result Comment: nhay man Performed By: #### L [id number] ####[facility] (BEAKER)[address] [place] [address] Glucose [Mass/Vol] 118 mg/dL High 70-105 [facility] Comment on above: Order Comment: Waive d Testing in the ED is performed under the ED CLIA certificate #[id number]. Result Comment: nhay man Performed By: #### L [id number] ####[facility] (BEAKER)[address] [place] [address] Glucose [Mass/Vol] 75 mg/dL Normal 70-105 [facility] Comment on above: Order Comment: Waive d Testing in the ED is performed under the ED CLIA certificate #[id number]. Result Comment: nhay man Performed By: #### L [id number] ####[facility] ([facility]AKER)[address] [place] [address] Glucose [Mass/Vol] 163 mg/dL High 70-105 [facility] Comment on above: Order Comment: Waive d Testing in the ED is performed under the ED CLIA certificate #[id number]. Result Comment: than sen2 Performed By: #### L [id number] ####[facility] (BEAKER)[address] [place] [address] Glucose [Mass/Vol] 176 mg/dL High 70-105 [facility] Comment on above: Order Comment: Waive d Testing in the ED is performed under the ED CLIA certificate #[id number]. Result Comment: than sen2 Performed By: #### L [id number] ####[facility] (BEAKER)[address] [place] [address] Glucose [Mass/Vol] 147 mg/dL High 70-105 [facility] Comment on above: Order Comment: Waive d Testing in the ED is performed under the ED CLIA certificate #[id number]. Result Comment: kste [email or web address] Performed By: #### L [id number] ####[facility] (BEAKER)[address] [place] [address] Glucose [Mass/Vol] 199 mg/dL High 70-105 [facility] Comment on above: Order Comment: Waive d Testing in the ED is performed under the ED CLIA certificate #[id number]. Result Comment: kste [email or web address] Performed By: #### L [id number] ####[facility] (BEAKER)[address] [place] [address] Glucose [Mass/Vol] 202 mg/dL High 70-105 [facility] Comment on above: Order Comment: Waive d Testing in the ED is performed under the ED CLIA certificate #[id number]. Result Comment: than sen2 Performed By: #### L [id number] ####[facility] (BEAKER)[address] [place] [address] Glucose [Mass/Vol] 233 mg/dL High 70-105 [facility] Comment on above: Order Comment: Waive d Testing in the ED is performed under the ED CLIA certificate #[id number]. Result Comment: than sen2 Performed By: #### L [id number] ####[facility] (BEAKER)[address] [place] [address] Glucose [Mass/Vol] 253 mg/dL High 70-105 [facility] Comment on above: Order Comment: Waive d Testing in the ED is performed under the ED CLIA certificate #[id number]. Result Comment: [email or web address] Performed By: #### L [id number] ####[facility] ([facility] [place] [address] Glucose [Mass/Vol] 279 mg/dL High 70-105 [facility] Comment on above: Order Comment: Waive d Testing in the ED is performed under the ED CLIA certificate #[id number]. Result Comment: than sen2 Performed By: #### L [id number] ####[facility] ([facility])[address] [place] [address] Glucose [Mass/Vol] 270 mg/dL High 70-105 [facility] Comment on above: Order Comment: Waive d Testing in the ED is performed under the ED CLIA certificate #[id number]. Result Comment: than sen2 Performed By: #### L [id number] ####[facility] ([facility])[address] [place] [address] Glucose [Mass/Vol] 267 mg/dL High 70-105 [facility] Comment on above: Order Comment: Waive d Testing in the ED is performed under the ED CLIA certificate #[id number]. Result Comment: [email or web address] Performed By: #### L [id number] ####[facility] (BEAKER)[address] [facility] [facility] [address] POTASSIUM, WHOLE BLOODon Potassium [Moles/Vol] 4.4 mmol/L Normal 3.5-5.1 [facility] Comment on above: Performed By: #### P OTASSIUM, WHOLE BLOOD ####[facility] [id number] [place] [address] [place] SODIUM, WHOLE BLOODon 2022 SODIUM, WHOLE BLOOD 141 Normal 136-145 [facility] Comment on above: Performed By: #### S ODIUM, WHOLE BLOOD ####[facility] [id number] [place] [address] [place] TROPONIN Ion 04-24-2023 Troponin I.cardiac [Mass/Vol] 34.92 ng/mL Critically high 0.00-0.04 [facility] Comment on above: Result Comment: Prev ious result verified on 04/23/2023 2259 on specimen/case [id number] called with component Troponin I for procedure Troponin I with value 22.65 ng/mL. Performed By: #### L [id number] ####[facility] ([facility])[address] [place] [address] 30on 04-23-2023 30 Normal [facility] 30 Normal [facility] AMYLASEon 04-23-2023 Amylase [Catalytic activity/Vol] 86 U/L Normal 29-103 [facility] Comment on above: Performed By: #### L [id number] ####[facility] ([facility])[address] [place] [address] APTTon 04-23-2023 ACTIVATED PARTIAL THROMBOPLASTIN TIME IN PPP BY COAGULATION ASSAY 45.1 Seconds High 25.0-35.0 [facility] Comment on above: Result Comment: Clin ical significance of the APTT is questionable in the presence of heparin. Performed By: #### L [id number] ####[facility] ([facility])[address] [place] [address] ACTIVATED PARTIAL THROMBOPLASTIN TIME IN PPP BY COAGULATION ASSAY 49.0 Seconds High 25.0-35.0 [facility] Comment on above: Result Comment: Clin ical significance of the APTT is questionable in the presence of heparin. Performed By: #### L [id number] ####[facility] ([facility])[address] [place] [address] ARTERIAL BLOOD GAS WITH IONI ZED CALCIUMon 04-23-2023 Base excess Calc (Bld) [Moles/Vol] -16.47618 mmol/L Low -2.0-3.0 [facility] Comment on above: Performed By: #### L [id number] ####[facility] RESPIRATORY [id number] [place] [address] [facility] CALCIUM IONIZED (MMOL/L) IN BLOOD 1.15 mmol/L Normal 1.15-1.33 [facility] Comment on above: Performed By: #### L [id number] ####[facility] [id number] [place] [address] [facility] CO2 (Bld) [Partial pressure] 20 mm[Hg] Invalid Interpretation Code 35-48 [facility] Comment on above: Performed By: #### L [id number] ####[facility] [id number] [place] [address] [facility] HCO3 (Bld) [Moles/Vol] 8.8 mmol/L Low 21.0-28.0 [facility] Comment on above: Performed By: #### L [id number] ####[facility] [id number] [place] [address] [facility] LPM 2 Normal [facility] Comment on above: Performed By: #### L [id number] ####[facility] [id number] [place] [address] [facility] Oxygen (Bld) [Partial pressure] 67 mm[Hg] Low 83-100 [facility] Comment on above: Performed By: #### L [id number] ####[facility] [id number] [place] [address] [facility] OXYGEN SATURATION (%) IN ARTERIAL BLOOD 93.6 % Low 94.0-98.0 [facility] Comment on above: Performed By: #### L [id number] ####[facility] RESP[facility] [id number] [place] [address] [place] pH (Bld) 7.25 [pH] Low 7.35-7.45 [facility] Comment on above: Performed By: #### L [id number] ####[facility] RESP[facility] [id number] [place] [address] [place] SOURCE OF OXYGEN Nasal cannula Normal [facility] Comment on above: Performed By: #### L [id number] ####[facility] [id number] [place], [place] [address] Base excess Calc (Bld) [Moles/Vol] -15.07764 mmol/L Low -2.0-3.0 [facility] Comment on above: Order Comment: On ar rival to CVU Performed By: #### L [id number] ####[facility] [id number] [place] [address] [facility] CALCIUM IONIZED (MMOL/L) IN BLOOD 1.16 mmol/L Normal 1.15-1.33 [facility] Comment on above: Order Comment: On ar rival to CVU Performed By: #### L [id number] ####[facility] RES[facility] [id number] [place], [place] [address] CO2 (Bld) [Partial pressure] 21 mm[Hg] Invalid Interpretation Code 35-48 [facility] Comment on above: Order Comment: On ar rival to CVU Performed By: #### L [id number] ####[facility] RES[facility] [id number] [place] [address] [facility] HCO3 (Bld) [Moles/Vol] 9.6 mmol/L Low 21.0-28.0 [facility] Comment on above: Order Comment: On ar rival to CVU Performed By: #### L [id number] ####[facility] RES[facility] [id number] [place] [address] [facility] Oxygen (Bld) [Partial pressure] 63 mm[Hg] Low 83-100 [facility] Comment on above: Order Comment: On ar rival to CVU Performed By: #### L [id number] ####[facility] RESP[facility] [id number] [place] [address] [facility] OXYGEN SATURATION (%) IN ARTERIAL BLOOD 92.2 % Low 94.0-98.0 [facility] Comment on above: Order Comment: On ar rival to CVU Performed By: #### L [id number] ####[facility] RES[facility] [id number] [place] [address] [facility] pH (Bld) 7.27 [pH] Low 7.35-7.45 [facility] Comment on above: Order Comment: On ar rival to CVU Performed By: #### L [id number] ####[facility] RES[facility] [id number] [place] [address] [place] SOURCE OF OXYGEN Nasal cannula Normal [facility] Comment on above: Order Comment: On ar rival to CVU Performed By: #### L [id number] ####[facility] RES[facility] [id number] [place] [address] [facility] Anesthesiaon 04-23-2023 Anesthesia [id number] OrtizGui 1955 M Date Provider Department Center 04/23/2023 KAUSHAL FINLEY [facility] SICU None Family History Family history unknown: Yes Normal [facility] BASIC METABOLIC PANELon 11-0 Anion gap [Moles/Vol] 10 mmol/L Normal 7-20 [facility] Comment on above: Performed By: #### L [id number] ####[facility] (BEAKER)[address] [place] [address] Calcium [Mass/Vol] 8.4 mg/dL Low 8.6-10.3 [facility] Comment on above: Performed By: #### L [id number] ####[facility] (BEAKER)[address] [place] [address] Chloride [Moles/Vol] 114 mmol/L High 98-107 [facility] Comment on above: Performed By: #### L [id number] ####[facility] (BEAKER)[address] [place] [address] CO2 [Moles/Vol] 25 mmol/L Normal 21-31 [facility] Comment on above: Performed By: #### L [id number] ####[facility] (BEAKER)[address] [place] [address] Creatinine [Mass/Vol] 0.86 mg/dL Normal 0.70-1.30 [facility] Comment on above: Performed By: #### L [id number] ####[facility] (BEAKER)[address] [place] [address] GLOMERULAR FILTRATION RATE ML/MIN/1.73 SQ M.PREDICTED 93.7 mL/min/1.73m*2 Normal >60.0 [facility] Comment on above: Result Comment: [facility]???s estimated glomerular filtration rate (eGFR) will [...] of individuals. Performed By: #### L [id number] ####[facility] ([facility])[address] [place] [address] Glucose [Mass/Vol] 86 mg/dL Normal 70-100 [facility] Comment on above: Performed By: #### L [id number] ####[facility] ([facility])[address] [place] [address] Potassium [Moles/Vol] 3.9 mmol/L Normal 3.5-5.1 [facility] Comment on above: Performed By: #### L [id number] ####[facility] ([facility])[address] [place] [address] Sodium [Moles/Vol] 145 mmol/L Normal 136-145 [facility] Comment on above: Performed By: #### L [id number] ####[facility] LAB (BEAKER)[address] [place] [address] Urea nitrogen [Mass/Vol] 19 mg/dL Normal 7-25 [facility] Comment on above: Performed By: #### L [id number] ####[facility] ([facility])[address] [place] [address] UREA NITROGEN/CREATININ E (MASS RATIO) IN SER/PLAS 22.1 Normal [facility] Comment on above: Performed By: #### L [id number] ####[facility] ([facility])[address] [place] [address] CALCIUM, IONIZEDon CALCIUM IONIZED (MMOL/L) IN BLOOD 1.21 mmol/L Normal 1.15-1.33 [facility] Comment on above: Performed By: #### C ALCIUM, IONIZED ####[facility] RESPIR[facility] [id number] [place] [address] [facility] CALCIUM IONIZED (MMOL/L) IN BLOOD 1.19 mmol/L Normal 1.15-1.33 [facility] Comment on above: Performed By: #### C ALCIUM, IONIZED ####[facility] RESPIR[facility] [id number] [place] [address] [facility] CALCIUM IONIZED (MMOL/L) IN BLOOD 1.07 mmol/L Low 1.15-1.33 [facility] Comment on above: Performed By: #### C ALCIUM, IONIZED ####[facility] RESPIR[facility] [id number] [place] [address] [facility] CBCon 04-23-2023 Erythrocyte distribution width (RBC) [Ratio] 13.3 % Normal 11.5-15.0 [facility] Comment on above: Performed By: #### L [id number] ####[facility] ([facility])[address] [place] [address] ERYTHROCYTE MEAN CORPUSCULAR HEMOGLOBIN CONCENTRATION (G/DL) BY AUTOMATED 34.2 g/dL Normal 32.0-35.0 [facility] Comment on above: Performed By: #### L [id number] ####[facility] ([facility])[address] [place] [address] Hematocrit (Bld) [Volume fraction] 22.5 % Low 39.0-55.0 [facility] Comment on above: Performed By: #### L [id number] ####[facility] ([facility])[address] [place] [address] Hemoglobin (Bld) [Mass/Vol] 7.7 g/dL Low 13.0-17.0 [facility] Comment on above: Result Comment: Resu lts checked Performed By: #### L [id number] ####[facility] ([facility])[address] [place] [address] IMMATURE PLATELET FRACTION % 2.5 % Normal 0.8-6.3 [facility] Comment on above: Performed By: #### L [id number] ####[facility] ([facility])[address] [place] [address] MCH (RBC) [Entitic mass] 31.3 pg Normal 27.0-33.0 [facility] Comment on above: Performed By: #### L [id number] ####[facility] ([facility])[address] [place] [address] MCV (RBC) [Entitic vol] 91.5 fL Normal 82.0-98.0 [facility] Comment on above: Performed By: #### L [id number] ####[facility] ([facility])[address] [place] [address] PLATELETS (10*3/UL) IN BLOOD AUTOMATED COUNT 80 10*3/uL Low 150-400 [facility] Comment on above: Result Comment: Plt est 74 ok Performed By: #### L [id number] ####[facility] ([facility])[address] [place] [address] RBC (Bld) [#/Vol] 2.46 10*6/uL Low 4.20-5.70 [facility] Comment on above: Performed By: #### L [id number] ####[facility] ([facility])[address] [place] [address] WBC (Bld) [#/Vol] 7.84 10*3/uL Normal 4.00-10.60 [facility] Comment on above: Performed By: #### L [id number] ####[facility] ([facility])[address] [place] [address] CBC WITH AUTO DIFFERENTIALon 04-23-2023 Erythrocyte distribution width (RBC) [Ratio] 14.0 % Normal 11.5-15.0 [facility] Comment on above: Performed By: #### L [id number] ####[facility] (BEAKER)[address] [place] [address] ERYTHROCYTE MEAN CORPUSCULAR HEMOGLOBIN CONCENTRATION (G/DL) BY AUTOMATED 33.9 g/dL Normal 32.0-35.0 [facility] Comment on above: Performed By: #### L [id number] ####[facility] (BEAKER)[address] [place] [address] Hematocrit (Bld) [Volume fraction] 18.0 % Low 39.0-55.0 [facility] Comment on above: Performed By: #### L [id number] ####[facility] (BEAKER)[address] [place] [address] Hemoglobin (Bld) [Mass/Vol] 6.1 g/dL Low 13.0-17.0 [facility] Comment on above: Performed By: #### L [id number] ####[facility] ([facility])[address] [place] [address] IMMATURE PLATELET FRACTION % 3.6 % Normal 0.8-6.3 [facility] Comment on above: Performed By: #### L [id number] ####[facility] ([facility] [place] [address] MCH (RBC) [Entitic mass] 31.4 pg Normal 27.0-33.0 [facility] Comment on above: Performed By: #### L [id number] ####[facility] (BEAKER)[address] [place] [address] MCV (RBC) [Entitic vol] 92.8 fL Normal 82.0-98.0 [facility] Comment on above: Performed By: #### L [id number] ####[facility] (BEAKER)[address] [place] [address] NRBC (PER 100 WBCS) BY AUTOMATED COUNT 0.0 % Normal 0 [facility] Comment on above: Performed By: #### L [id number] ####[facility] (BEAKER)[address] [place] [address] PLATELETS (10*3/UL) IN BLOOD AUTOMATED COUNT 68 10*3/uL Low 150-400 [facility] Comment on above: Performed By: #### L [id number] ####[facility] ([facility])[address] [place] [address] RBC (Bld) [#/Vol] 1.94 10*6/uL Low 4.20-5.70 [facility] Comment on above: Performed By: #### L [id number] ####[facility] ([facility])[address] [place] [address] WBC (Bld) [#/Vol] 12.79 10*3/uL High 4.00-10.60 [facility] Comment on above: Performed By: #### L [id number] ####[facility] ([facility])[address] [place] [address] CK TOTAL AND CKMBon 04-23-20 CREATINE KINASE (U/L) IN SER/PLAS 4110.0 U/L High 30.0-223.0 [facility] Comment on above: Performed By: #### L [id number] ####[facility] ([facility])[address] [place] [address] CREATINE KINASE MB/CREATINE KINASE TOTAL BY CALCULATION 2.9 High <=1.9 [facility] Comment on above: Performed By: #### L [id number] ####[facility] ([facility])[address] [place] [address] CREATINE KINASE-MB (NG/ML) IN SER/PLAS 122.5 ng/mL High 0.0-5.0 [facility] Comment on above: Performed By: #### L [id number] ####[facility] ([facility])[address] [place] [address] CO-OXIMETRYon 04-23-2023 CARBOXYHEMOGLOBIN/ HEMOGLOBIN TOTAL % IN BLOOD 1.3 % Normal [facility] Comment on above: Performed By: #### L [id number] ####[facility] RESPIR[facility] [id number] [place] [address] [place] Hemoglobin (Bld) [Mass/Vol] 7.8 g/dL Normal [facility] Comment on above: Performed By: #### L [id number] ####[facility] RESPIR[facility] [id number] [place] [address] [place] METHEMOGLOBIN/100 IN BLOOD 1.0 % Normal 0.0-1.5 [facility] Comment on above: Performed By: #### L [id number] ####[facility] RESPIR[facility] [id number] [place] [address] [place] Oxygen saturation in Blood 65.8 % Normal [facility] Comment on above: Performed By: #### L [id number] ####[facility] RESPIR[facility]ORY [id number] [place] [address] [place] OXYGENATED HEMOGLOBIN IN BLOOD 64.2 % Normal [facility] Comment on above: Performed By: #### L [id number] ####[facility] RESPIR[facility] [id number] [place] [address] [facility] COMPREHENSIVE METABOLIC PANE Roddy 04-23-2023 Albumin [Mass/Vol] 3.6 g/dL Normal 3.5-5.7 [facility] Comment on above: Performed By: #### L [id number] ####[facility] LAB (BEAKER)[address] [place] [address] ALP [Catalytic activity/Vol] 34 U/L Normal 34-104 [facility] Comment on above: Performed By: #### L [id number] ####[facility] (BEAKER)[address] [place] [address] ALT [Catalytic activity/Vol] 22 U/L Normal 7-52 [facility] Comment on above: Performed By: #### L [id number] ####[facility] (BEAKER)[address] [place] [address] Anion gap [Moles/Vol] 21 mmol/L High 7-20 [facility] Comment on above: Performed By: #### L [id number] ####[facility] (BEAKER)[address] [place] [address] AST [Catalytic activity/Vol] 132 U/L High 13-39 [facility] Comment on above: Performed By: #### L [id number] ####[facility] LAB (BEAKER)[address] [place] [address] Bilirubin [Mass/Vol] 0.5 mg/dL Normal 0.3-1.0 [facility] Comment on above: Performed By: #### L [id number] ####[facility] ([facility])[address] [place] [address] Calcium [Mass/Vol] 8.1 mg/dL Low 8.6-10.3 [facility] Comment on above: Performed By: #### L [id number] ####[facility] ([facility])[address] [place] [address] Chloride [Moles/Vol] 109 mmol/L High 98-107 [facility] Comment on above: Performed By: #### L [id number] ####[facility] ([facility])[address] [place] [address] CO2 [Moles/Vol] 20 mmol/L Low 21-31 [facility] Comment on above: Performed By: #### L [id number] ####[facility] ([facility])[address] [place] [address] Creatinine [Mass/Vol] 1.16 mg/dL Normal 0.70-1.30 [facility] Comment on above: Performed By: #### L [id number] ####[facility] ([facility])[address] [place] [address] GLOMERULAR FILTRATION RATE ML/MIN/1.73 SQ M.PREDICTED 68.2 mL/min/1.73m*2 Normal >60.0 [facility] Comment on above: Result Comment: [facility]???s estimated glomerular filtration rate (eGFR) will [...] of individuals. Performed By: #### L [id number] ####[facility] ([facility])[address] [place] [address] Glucose [Mass/Vol] 255 mg/dL High 70-100 [facility] Comment on above: Performed By: #### L [id number] ####[facility] ([facility])[address] [place] [address] Potassium [Moles/Vol] 4.4 mmol/L Normal 3.5-5.1 [facility] Comment on above: Performed By: #### L [id number] ####[facility] ([facility])[address] [facility] [facility] [address] Protein [Mass/Vol] 4.7 g/dL Low 6.0-8.3 [facility] Comment on above: Performed By: #### L [id number] ####[facility] ([facility])[address] [place] [address] Sodium [Moles/Vol] 146 mmol/L High 136-145 [facility] Comment on above: Performed By: #### L [id number] ####[facility] ([facility])[address] [place] [address] Urea nitrogen [Mass/Vol] 21 mg/dL Normal 7-25 [facility] Comment on above: Performed By: #### L [id number] ####[facility] ([facility])[address] [facility] [address] UREA NITROGEN/CREATININ E (MASS RATIO) IN SER/PLAS 18.1 Normal [facility] Comment on above: Performed By: #### L [id number] ####[facility] ([facility])[address] [place] [address] CONSULTon 04-23-2023 CONSULT Normal [facility] CONSULT Normal [facility] FIBRINOGENon 04-23-2023 Magnesium [Mass/Vol] 258 mg/dL Normal 150-425 [facility] Comment on above: Performed By: #### L [id number] ####[facility] ([facility])[address] [place] [address] LACTIC ACID WITH 4 HOUR REFL EXon 04-23-2023 LACTATE (MMOL/L) IN SER/PLAS 12.1 mmol/L Critically high 0.5-2.2 [facility] Comment on above: Result Comment: Prev ious result verified on 04/22/2023 2146 on specimen/case [id number] called with component Lactate for procedure Lactic acid, plasma with value 2.6 mmol/L. Performed By: #### L [id number] ####[facility] ([facility])[address] [place] [address] LACTIC ACID, PLASMAon 2022 LACTATE (MMOL/L) IN SER/PLAS 2.2 mmol/L Normal 0.5-2.2 [facility] Comment on above: Performed By: #### L [id number] ####[facility] ([facility])[address] [place] [address] LIPASEon 04-23-2023 LIPASE (U/L) IN SER/PLAS 12 U/L Normal 11-82 [facility] Comment on above: Performed By: #### L [id number] ####[facility] ([facility])[address] [place] [address] MAGNESIUMon 04-23-2023 Magnesium [Mass/Vol] 1.8 mg/dL Low 1.9-2.7 [facility] Comment on above: Performed By: #### L [id number] ####[facility] ([facility])[address] [place] [address] MANUAL DIFFERENTIALon 2022 BASOPHILS (10*3/UL) IN BLOOD BY CALCULATION 0.01 10*3/uL Normal 0.00-0.20 [facility] Comment on above: Performed By: #### L [id number] ####[facility] ([facility])[address] [place] [address] BASOPHILS/100 LEUKOCYTES IN BLOOD BY AUTOMATED COUNT 0.1 % Normal 0.0-1.0 [facility] Comment on above: Performed By: #### L [id number] ####[facility] ([facility])[address] [place] [address] EOSINOPHILS (10*3/UL) IN BLOOD BY CALCULATION 0.00 10*3/uL Normal 0.00-0.50 [facility] Comment on above: Performed By: #### L [id number] ####[facility] ([facility])[address] [place] [address] EOSINOPHILS/100 LEUKOCYTES IN BLOOD BY AUTOMATED COUNT 0.0 % Normal 0.0-6.0 [facility] Comment on above: Performed By: #### L [id number] ####[facility] ([facility])[address] [place] [address] IMMATURE GRANULOCYTES (10*3/UL) IN BLOOD BY CALCULATION 0.09 10*3/uL Normal 0.00-0.20 [facility] Comment on above: Performed By: #### L [id number] ####[facility] ([facility])[address] [place] [address] IMMATURE GRANULOCYTES/100 LEUKOCYTES IN BLOOD BY AUTOMATED COUNT 0.7 % Normal 0.0-1.0 [facility] Comment on above: Performed By: #### L [id number] ####[facility] ([facility])[address] [place] [address] LYMPHOCYTES (10*3/UL) IN BLOOD BY CALCULATION 0.72 10*3/uL Low 1.20-4.00 [facility] Comment on above: Performed By: #### L [id number] ####[facility] ([facility])[address] [place] [address] LYMPHOCYTES/100 LEUKOCYTES IN BLOOD BY AUTOMATED COUNT 5.6 % Low 20.0-45.0 [facility] Comment on above: Performed By: #### L [id number] ####[facility] ([facility])[address] [place] [address] MONOCYTES (10*3/UL) IN BLOOD BY CALCUATION 0.70 10*3/uL Normal 0.10-1.00 [facility] Comment on above: Performed By: #### L [id number] ####[facility] ([facility])[address] [place] [address] MONOCYTES/100 LEUKOCYTES IN BLOOD BY AUTOMATED COUNT 5.5 % Normal 5.0-12.0 [facility] Comment on above: Performed By: #### L [id number] ####[facility] ([facility])[address] [place] [address] NEUTROPHILS (10*3/UL) IN BLOOD BY CALCULATION 11.3 10*3/uL High 1.6-7.6 [facility] Comment on above: Performed By: #### L [id number] ####[facility] ([facility])[address] [place] [address] NEUTROPHILS/100 LEUKOCYTES IN BLOOD BY AUTOMATED COUNT 88.1 % High 40.0-72.0 [facility] Comment on above: Performed By: #### L [id number] ####[facility] ([facility])[address] [place] [address] MYOGLOBIN, SERUMon 3 MYOGLOBIN (NG/ML) IN SER/PLAS 1832 ng/mL High 0-90 [facility] Comment on above: Result Comment: A DO UBLING OF VALUES FROM SERIAL BLOOD COLLECTIONS (1 - 2 HOURS APART) IS MORE INDICATIVE OF A M.I. THAN THE ABSOLUTE VALUE. Performed By: #### L [id number] ####[facility] ([facility])[address] [place] [address] PHOSPHORUSon 04-23-2023 Magnesium [Mass/Vol] 3.1 mg/dL Normal 2.5-5.0 [facility] Comment on above: Performed By: #### L [id number] ####[facility] ([facility])[address] [place] [address] POCT GLUCOSE METER UNSOLICIT ED RESULTSon 04-23-2023 Glucose [Mass/Vol] 267 mg/dL High 70-105 [facility] Comment on above: Order Comment: Waive d Testing in the ED is performed under the ED CLIA certificate #[id number]. Result Comment: than [email or web address] Performed By: #### L [id number] ####[facility] ([email or web address])[address] [place] [address] Glucose [Mass/Vol] 138 mg/dL High 70-105 [facility] Comment on above: Order Comment: Waive d Testing in the ED is performed under the ED CLIA certificate #[id number]. Result Comment: nhay man Performed By: #### L [id number] ####[facility] (AKER)[address] [place] [address] Glucose [Mass/Vol] 92 mg/dL Normal 70-105 [facility] Comment on above: Order Comment: Waive d Testing in the ED is performed under the ED CLIA certificate #[id number]. Result Comment: nhay man Performed By: #### L [id number] ####[facility] ([email or web address])[address] [place] [address] Glucose [Mass/Vol] 101 mg/dL Normal 70-105 [facility] Comment on above: Order Comment: Waive d Testing in the ED is performed under the ED CLIA certificate #[id number]. Result Comment: [email or web address] Performed By: #### L [id number] ####[facility] ([email or web address])[address] [place] [address] Glucose [Mass/Vol] 91 mg/dL Normal 70-105 [facility] Comment on above: Order Comment: Waive d Testing in the ED is performed under the ED CLIA certificate #[id number]. Result Comment: [email or web address] Performed By: #### L [id number] ####[facility] ([email or web address])[address] [place] [address] Glucose [Mass/Vol] 114 mg/dL High 70-105 [facility] Comment on above: Order Comment: Waive d Testing in the ED is performed under the ED CLIA certificate #[id number]. Result Comment: [email or web address] Performed By: #### L [id number] ####[facility] (BEAKER)[address] [place] [address] Glucose [Mass/Vol] 123 mg/dL High 70-105 [facility] Comment on above: Order Comment: Waive d Testing in the ED is performed under the ED CLIA certificate #[id number]. Result Comment: [email or web address] Performed By: #### L [id number] ####[facility] ([facility])[address] [place] [address] Glucose [Mass/Vol] 142 mg/dL High 70-105 [facility] Comment on above: Order Comment: Waive d Testing in the ED is performed under the ED CLIA certificate #[id number]. Result Comment: [email or web address] Performed By: #### L [id number] ####[facility] ([facility])[address] [place] [address] Glucose [Mass/Vol] 152 mg/dL High 70-105 [facility] Comment on above: Order Comment: Waive d Testing in the ED is performed under the ED CLIA certificate #[id number]. Result Comment: ahoo [email or web address] Performed By: #### L [id number] ####[facility] ([facility])[address] [place] [address] Glucose [Mass/Vol] 167 mg/dL High 70-105 [facility] Comment on above: Order Comment: Waive d Testing in the ED is performed under the ED CLIA certificate #[id number]. Result Comment: [email or web address] Performed By: #### L [id number] ####[facility] ([facility] [place] [address] POTASSIUM, WHOLE BLOODon Potassium [Moles/Vol] 4.3 mmol/L Normal 3.5-5.1 [facility] Comment on above: Performed By: #### P OTASSIUM, WHOLE BLOOD ####[facility] [id number] [place] [address] [place] Potassium [Moles/Vol] 4.1 mmol/L Normal 3.5-5.1 [facility] Comment on above: Performed By: #### P OTASSIUM, WHOLE BLOOD ####[facility] [id number] [place] [address] [facility] Potassium [Moles/Vol] 4.3 mmol/L Normal 3.5-5.1 [facility] Comment on above: Performed By: #### P OTASSIUM, WHOLE BLOOD ####[facility] [id number] [place] [address] [facility] PROTIME-INRon 04-23-2023 INR IN PPP BY COAGULATION ASSAY 1.98 High 0.90-1.10 [facility] Comment on above: Result Comment: ACCC [...] CHEST 1995;108:[id number]. Performed By: #### L [id number] ####[facility] (BEAKER)[address] [place] [address] PROTHROMBIN TIME (PT) IN PPP BY COAGULATION ASSAY 22.6 Seconds High 12.3-14.8 [facility] Comment on above: Performed By: #### L [id number] ####[facility] (BEAKER)[address] [place] [address] INR IN PPP BY COAGULATION ASSAY 1.47 High 0.90-1.10 [facility] Comment on above: Result Comment: ACCC [...] CHEST 1995;108:[id number]. Performed By: #### L [id number] ####[facility] (BEAKER)[address] [place] [address] PROTHROMBIN TIME (PT) IN PPP BY COAGULATION ASSAY 17.9 Seconds High 12.3-14.8 [facility] Comment on above: Performed By: #### L [id number] ####[facility] (BEAKER)[address] [place] [address] SODIUM, WHOLE BLOODon 2022 SODIUM, WHOLE BLOOD 141 Normal 136-145 [facility] Comment on above: Performed By: #### S ODIUM, WHOLE BLOOD ####[facility] [id number] [place] [address] [place] SODIUM, WHOLE BLOOD 143 Normal 136-145 [facility] Comment on above: Performed By: #### S ODIUM, WHOLE BLOOD ####[facility] [id number] [place] [address] [place] SODIUM, WHOLE BLOOD 144 Normal 136-145 [facility] Comment on above: Performed By: #### S ODIUM, WHOLE BLOOD ####[facility] [id number] [place] [address] [place] TROPONIN Ion 04-23-2023 Troponin I.cardiac [Mass/Vol] 22.65 ng/mL Critically high 0.00-0.04 [facility] Comment on above: Result Comment: M-TR OPONIN INITIAL CRITICAL HIGH; RESPUN AND RETESTED Performed By: #### L [id number] ####[facility] ([employer] [place] [address] ANESon 04-22-2023 ANES Normal [facility] APTTon 04-22-2023 ACTIVATED PARTIAL THROMBOPLASTIN TIME IN PPP BY COAGULATION ASSAY 43.4 Seconds High 25.0-35.0 [facility] Comment on above: Result Comment: Clin ical significance of the APTT is questionable in the presence of heparin. Performed By: #### L [id number] ####[facility] ([email or web address])[address] [place] [address] ACTIVATED PARTIAL THROMBOPLASTIN TIME IN PPP BY COAGULATION ASSAY 36.9 Seconds High 25.0-35.0 [facility] Comment on above: Result Comment: Clin ical significance of the APTT is questionable in the presence of heparin. Performed By: #### L [id number] ####[facility] ([employer] [place] [address] ACTIVATED PARTIAL THROMBOPLASTIN TIME IN PPP BY COAGULATION ASSAY 40.3 Seconds High 25.0-35.0 [facility] Comment on above: Order Comment: Pre-o p diagnosis:NSTEMI (non-ST elevated myocardial infarction) (CMS/HCC) [I21.4]Acute non-ST segment elevation myocardial infarction (CMS/HCC) [I21.4]Coronary artery disease, unspecified vessel or lesion type, unspecified whether angina present, unspecified whether point hope ira or 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] Result Comment: Clin ical significance of the APTT is questionable in the presence of heparin. Performed By: #### L [id number] ####[facility] ([employer] [place] [address] BASIC METABOLIC PANELon 11-0 Anion gap [Moles/Vol] 9 mmol/L Normal 7-20 [facility] Comment on above: Performed By: #### L [id number] ####[facility] ([facility])[address] [facility] [address] Calcium [Mass/Vol] 7.9 mg/dL Low 8.6-10.3 [facility] Comment on above: Performed By: #### L [id number] ####[facility] ([facility])[address] [facility] [facility] [address] Chloride [Moles/Vol] 114 mmol/L High 98-107 [facility] Comment on above: Performed By: #### L [id number] ####[facility] ([facility])[address] [facility] [facility] [address] CO2 [Moles/Vol] 25 mmol/L Normal 21-31 [facility] Comment on above: Performed By: #### L [id number] ####[facility] ([facility])[address] [facility] [facility] [address] Creatinine [Mass/Vol] 0.86 mg/dL Normal 0.70-1.30 [facility] Comment on above: Performed By: #### L [id number] ####[facility] ([facility])[address] [place] [address] GLOMERULAR FILTRATION RATE ML/MIN/1.73 SQ M.PREDICTED 93.7 mL/min/1.73m*2 Normal >60.0 [facility] Comment on above: Result Comment: [facility]???s estimated glomerular filtration rate (eGFR) will [...] of individuals. Performed By: #### L [id number] ####[facility] (BEAKER)[address] [place] [address] Glucose [Mass/Vol] 162 mg/dL High 70-100 [facility] Comment on above: Performed By: #### L [id number] ####[facility] ([facility])[address] [place] [address] Potassium [Moles/Vol] 4.2 mmol/L Normal 3.5-5.1 [facility] Comment on above: Performed By: #### L [id number] ####[facility] ([facility])[address] [place] [address] Sodium [Moles/Vol] 144 mmol/L Normal 136-145 [facility] Comment on above: Performed By: #### L [id number] ####[facility] ([facility])[address] [place] [address] Urea nitrogen [Mass/Vol] 19 mg/dL Normal 7-25 [facility] Comment on above: Performed By: #### L [id number] ####[facility] ([facility])[address] [place] [address] UREA NITROGEN/CREATININ E (MASS RATIO) IN SER/PLAS 22.1 Normal [facility] Comment on above: Performed By: #### L [id number] ####[facility] ([facility])[address] [place] [address] Anion gap [Moles/Vol] 7 mmol/L Normal 7-20 [facility] Comment on above: Performed By: #### L [id number] ####[facility] ([facility])[address] [place] [address] Calcium [Mass/Vol] 8.2 mg/dL Low 8.6-10.3 [facility] Comment on above: Performed By: #### L [id number] ####[facility] (BEAKER)[address] [place] [address] Chloride [Moles/Vol] 114 mmol/L High 98-107 [facility] Comment on above: Performed By: #### L [id number] ####[facility] (BEAKER)[address] [place] [address] CO2 [Moles/Vol] 29 mmol/L Normal 21-31 [facility] Comment on above: Performed By: #### L [id number] ####[facility] (BEAKER)[address] [place] [address] Creatinine [Mass/Vol] 0.77 mg/dL Normal 0.70-1.30 [facility] Comment on above: Performed By: #### L [id number] ####[facility] ([facility])[address] [place] [address] GLOMERULAR FILTRATION RATE ML/MIN/1.73 SQ M.PREDICTED 96.9 mL/min/1.73m*2 Normal >60.0 [facility] Comment on above: Result Comment: [facility]???s estimated glomerular filtration rate (eGFR) will [...] of individuals. Performed By: #### L [id number] ####[facility] ([facility])[address] [place] [address] Glucose [Mass/Vol] 142 mg/dL High 70-100 [facility] Comment on above: Performed By: #### L [id number] ####[facility] (BEAKER)[address] [place] [address] Potassium [Moles/Vol] 3.7 mmol/L Normal 3.5-5.1 [facility] Comment on above: Performed By: #### L [id number] ####[facility] (BEAKER)[address] [place] [address] Sodium [Moles/Vol] 146 mmol/L High 136-145 [facility] Comment on above: Performed By: #### L [id number] ####[facility] (BEAKER)[address] [place] [address] Urea nitrogen [Mass/Vol] 18 mg/dL Normal 7-25 [facility] Comment on above: Performed By: #### L [id number] ####[facility] (BEAKER)[address] [place] [address] UREA NITROGEN/CREATININ E (MASS RATIO) IN SER/PLAS 23.4 Normal [facility] Comment on above: Performed By: #### L [id number] ####[facility] (BEAKER)[address] [place] [address] Anion gap [Moles/Vol] 7 mmol/L Normal 7-20 [facility] Comment on above: Order Comment: Pre-o p diagnosis:NSTEMI (non-ST elevated myocardial infarction) (CMS/HCC) [I21.4]Acute non-ST segment elevation myocardial infarction (CMS/HCC) [I21.4]Coronary artery disease, unspecified vessel or lesion type, unspecified whether angina present, unspecified whether point hope ira or 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] Performed By: #### L [id number] ####[facility] ([email or web address])[address] [place] [address] Calcium [Mass/Vol] 8.5 mg/dL Low 8.6-10.3 [facility] Comment on above: Order Comment: Pre-o p diagnosis:NSTEMI (non-ST elevated myocardial infarction) (CMS/HCC) [I21.4]Acute non-ST segment elevation myocardial infarction (CMS/HCC) [I21.4]Coronary artery disease, unspecified vessel or lesion type, unspecified whether angina present, unspecified whether point hope ira or 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] Performed By: #### L [id number] ####[facility] (BEAKER)[address] [place] [address] Chloride [Moles/Vol] 116 mmol/L High 98-107 [facility] Comment on above: Order Comment: Pre-o p diagnosis:NSTEMI (non-ST elevated myocardial infarction) (CMS/HCC) [I21.4]Acute non-ST segment elevation myocardial infarction (CMS/HCC) [I21.4]Coronary artery disease, unspecified vessel or lesion type, unspecified whether angina present, unspecified whether point hope ira or 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] Performed By: #### L [id number] ####[facility] (BEAKER)[address] [facility] [address] CO2 [Moles/Vol] 25 mmol/L Normal 21-31 [facility] Comment on above: Order Comment: Pre-o p diagnosis:NSTEMI (non-ST elevated myocardial infarction) (CMS/HCC) [I21.4]Acute non-ST segment elevation myocardial infarction (CMS/HCC) [I21.4]Coronary artery disease, unspecified vessel or lesion type, unspecified whether angina present, unspecified whether point hope ira or 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] Performed By: #### L [id number] ####[facility] (BEAKER)[address] [address] Creatinine [Mass/Vol] 0.82 mg/dL Normal 0.70-1.30 [facility] Comment on above: Order Comment: Pre-o p diagnosis:NSTEMI (non-ST elevated myocardial infarction) (CMS/HCC) [I21.4]Acute non-ST segment elevation myocardial infarction (CMS/HCC) [I21.4]Coronary artery disease, unspecified vessel or lesion type, unspecified whether angina present, unspecified whether point hope ira or 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] Performed By: #### L [id number] ####[facility] (BEAKER)[address] [employer] [place] [address] GLOMERULAR FILTRATION RATE ML/MIN/1.73 SQ M.PREDICTED 95.1 mL/min/1.73m*2 Normal >60.0 [facility] Comment on above: Order Comment: Pre-o p diagnosis:NSTEMI (non-ST elevated myocardial infarction) (CMS/HCC) [I21.4]Acute non-ST segment elevation myocardial infarction (CMS/HCC) [I21.4]Coronary artery disease, unspecified vessel or lesion type, unspecified whether angina present, unspecified whether point hope ira or 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] Result Comment: [facility]???s estimated glomerular filtration rate (eGFR) will [...] of individuals. Performed By: #### L [id number] ####[facility] ([employer] [place] [address] Glucose [Mass/Vol] 198 mg/dL High 70-100 [facility] Comment on above: Order Comment: Pre-o p diagnosis:NSTEMI (non-ST elevated myocardial infarction) (CMS/HCC) [I21.4]Acute non-ST segment elevation myocardial infarction (CMS/HCC) [I21.4]Coronary artery disease, unspecified vessel or lesion type, unspecified whether angina present, unspecified whether point hope ira or 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] Performed By: #### L [id number] ####[facility] ([email or web address])[address] [place] [address] Potassium [Moles/Vol] 3.1 mmol/L Low 3.5-5.1 [facility] Comment on above: Order Comment: Pre-o p diagnosis:NSTEMI (non-ST elevated myocardial infarction) (CMS/HCC) [I21.4]Acute non-ST segment elevation myocardial infarction (CMS/HCC) [I21.4]Coronary artery disease, unspecified vessel or lesion type, unspecified whether angina present, unspecified whether point hope ira or 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] Performed By: #### L [id number] ####[facility] (BEAKER)[address] [place] [address] Sodium [Moles/Vol] 145 mmol/L Normal 136-145 [facility] Comment on above: Order Comment: Pre-o p diagnosis:NSTEMI (non-ST elevated myocardial infarction) (CMS/HCC) [I21.4]Acute non-ST segment elevation myocardial infarction (CMS/HCC) [I21.4]Coronary artery disease, unspecified vessel or lesion type, unspecified whether angina present, unspecified whether [place] or 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] Performed By: #### L [id number] ####[facility] (BEAKER)[address] [place] [address] Urea nitrogen [Mass/Vol] 18 mg/dL Normal 7-25 [facility] Comment on above: Order Comment: Pre-o p diagnosis:NSTEMI (non-ST elevated myocardial infarction) (CMS/HCC) [I21.4]Acute non-ST segment elevation myocardial infarction (CMS/HCC) [I21.4]Coronary artery disease, unspecified vessel or lesion type, unspecified whether angina present, unspecified whether [place] or 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] Performed By: #### L [id number] ####[facility] ([email or web address])[address] [place] [address] UREA NITROGEN/CREATININ E (MASS RATIO) IN SER/PLAS 22.0 Normal [facility] Comment on above: Order Comment: Pre-o p diagnosis:NSTEMI (non-ST elevated myocardial infarction) (CMS/HCC) [I21.4]Acute non-ST segment elevation myocardial infarction (CMS/HCC) [I21.4]Coronary artery disease, unspecified vessel or lesion type, unspecified whether angina present, unspecified whether [place] or 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] Performed By: #### L [id number] ####[facility] ([email or web address])[address] [place] [address] CBCon 04-22-2023 Erythrocyte distribution width (RBC) [Ratio] 13.1 % Normal 11.5-15.0 [facility] Comment on above: Performed By: #### L [id number] ####[facility] ([email or web address])[address] [place] [address] ERYTHROCYTE MEAN CORPUSCULAR HEMOGLOBIN CONCENTRATION (G/DL) BY AUTOMATED 34.7 g/dL Normal 32.0-35.0 [facility] Comment on above: Performed By: #### L [id number] ####[facility] (BEAKER)[address] [place] [address] Hematocrit (Bld) [Volume fraction] 32.6 % Low 39.0-55.0 [facility] Comment on above: Performed By: #### L [id number] ####[facility] (BEAKER)[address] [place] [address] Hemoglobin (Bld) [Mass/Vol] 11.3 g/dL Low 13.0-17.0 [facility] Comment on above: Performed By: #### L [id number] ####[facility] (BEAKER)[address] [place], [place] [address] MCH (RBC) [Entitic mass] 31.1 pg Normal 27.0-33.0 [facility] Comment on above: Performed By: #### L [id number] ####[facility] ([facility], [place] [address] MCV (RBC) [Entitic vol] 89.8 fL Normal 82.0-98.0 [facility] Comment on above: Performed By: #### L [id number] ####[facility] ([facility], [place] [address] PLATELETS (10*3/UL) IN BLOOD AUTOMATED COUNT 107 10*3/uL Low 150-400 [facility] Comment on above: Performed By: #### L [id number] ####[facility] (BEAKER)[address], [place] [address] RBC (Bld) [#/Vol] 3.63 10*6/uL Low 4.20-5.70 [facility] Comment on above: Performed By: #### L [id number] ####[facility] (BEAKER)[address] [place] [address] WBC (Bld) [#/Vol] 18.54 10*3/uL High 4.00-10.60 [facility] Comment on above: Performed By: #### L [id number] ####[facility] (BEAKER)[address] [place] [address] Erythrocyte distribution width (RBC) [Ratio] 13.0 % Normal 11.5-15.0 [facility] Comment on above: Order Comment: Pre-o p diagnosis:NSTEMI (non-ST elevated myocardial infarction) (CMS/HCC) [I21.4]Acute non-ST segment elevation myocardial infarction (CMS/HCC) [I21.4]Coronary artery disease, unspecified vessel or lesion type, unspecified whether angina present, unspecified whether [place] or 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] Performed By: #### L [id number] ####[facility] (BEAKER)[address] [place] [address] ERYTHROCYTE MEAN CORPUSCULAR HEMOGLOBIN CONCENTRATION (G/DL) BY AUTOMATED 34.5 g/dL Normal 32.0-35.0 [facility] Comment on above: Order Comment: Pre-o p diagnosis:NSTEMI (non-ST elevated myocardial infarction) (CMS/HCC) [I21.4]Acute non-ST segment elevation myocardial infarction (CMS/HCC) [I21.4]Coronary artery disease, unspecified vessel or lesion type, unspecified whether angina present, unspecified whether [place] or 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] Performed By: #### L [id number] ####[facility] (BEAKER)[address] [place] [address] Hematocrit (Bld) [Volume fraction] 26.7 % Low 39.0-55.0 [facility] Comment on above: Order Comment: Pre-o p diagnosis:NSTEMI (non-ST elevated myocardial infarction) (CMS/HCC) [I21.4]Acute non-ST segment elevation myocardial infarction (CMS/HCC) [I21.4]Coronary artery disease, unspecified vessel or lesion type, unspecified whether angina present, unspecified whether [place] or transplanted heart [I25.10] Performed By: #### L [id number] ####[facility] (BEAKER)[address] [place] [address] Hemoglobin (Bld) [Mass/Vol] 9.2 g/dL Low 13.0-17.0 [facility] Comment on above: Order Comment: Pre-o p diagnosis:NSTEMI (non-ST elevated myocardial infarction) (CMS/HCC) [I21.4]Acute non-ST segment elevation myocardial infarction (CMS/HCC) [I21.4]Coronary artery disease, unspecified vessel or lesion type, unspecified whether angina present, unspecified whether [place] or transplanted heart [I25.10] Performed By: #### L [id number] ####[facility] ([employer].)[address] [place] [address] MCH (RBC) [Entitic mass] 31.4 pg Normal 27.0-33.0 [facility] Comment on above: Order Comment: Pre-o p diagnosis:NSTEMI (non-ST elevated myocardial infarction) (CMS/HCC) [I21.4]Acute non-ST segment elevation myocardial infarction (CMS/HCC) [I21.4]Coronary artery disease, unspecified vessel or lesion type, unspecified whether angina present, unspecified whether [place] or transplanted heart [I25.10] Performed By: #### L [id number] ####[facility] ([email or web address])[address] [place] [address] MCV (RBC) [Entitic vol] 91.1 fL Normal 82.0-98.0 [facility] Comment on above: Order Comment: Pre-o p diagnosis:NSTEMI (non-ST elevated myocardial infarction) (CMS/HCC) [I21.4]Acute non-ST segment elevation myocardial infarction (CMS/HCC) [I21.4]Coronary artery disease, unspecified vessel or lesion type, unspecified whether angina present, unspecified whether [place] or transplanted heart [I25.10] Performed By: #### L [id number] ####[facility] ([employer].)[address] [place] [address] PLATELETS (10*3/UL) IN BLOOD AUTOMATED COUNT 134 10*3/uL Low 150-400 [facility] Comment on above: Order Comment: Pre-o p diagnosis:NSTEMI (non-ST elevated myocardial infarction) (CMS/HCC) [I21.4]Acute non-ST segment elevation myocardial infarction (CMS/HCC) [I21.4]Coronary artery disease, unspecified vessel or lesion type, unspecified whether angina present, unspecified whether [place] or transplanted heart [I25.10] Performed By: #### L [id number] ####[facility] ([employer] [place] [address] RBC (Bld) [#/Vol] 2.93 10*6/uL Low 4.20-5.70 [facility] Comment on above: Order Comment: Pre-o p diagnosis:NSTEMI (non-ST elevated myocardial infarction) (CMS/HCC) [I21.4]Acute non-ST segment elevation myocardial infarction (CMS/HCC) [I21.4]Coronary artery disease, unspecified vessel or lesion type, unspecified whether angina present, unspecified whether [place] or transplanted heart [I25.10] Performed By: #### L [id number] ####[facility] ([email or web address])[address] [place] [address] WBC (Bld) [#/Vol] 21.16 10*3/uL High 4.00-10.60 [facility] Comment on above: Order Comment: Pre-o p diagnosis:NSTEMI (non-ST elevated myocardial infarction) (CMS/HCC) [I21.4]Acute non-ST segment elevation myocardial infarction (CMS/HCC) [I21.4]Coronary artery disease, unspecified vessel or lesion type, unspecified whether angina present, unspecified whether [place] or transplanted heart [I25.10] Performed By: #### L [id number] ####[facility] ([employer] [facility] [address] CBC WITH AUTO DIFFERENTIALon 04-22-2023 Basophils (Bld) [#/Vol] 0.01 10*3/uL Normal 0.00-0.20 [facility] Comment on above: Performed By: #### L [id number] ####[facility] ([email or web address])[address] [place] [address] Basophils/100 WBC (Bld) 0.1 % Normal 0.0-1.0 [facility] Comment on above: Performed By: #### L [id number] ####[facility] (BEAKER)[address] [place] [address] Eosinophils (Bld) [#/Vol] 0.00 10*3/uL Normal 0.00-0.50 [facility] Comment on above: Performed By: #### L [id number] ####[facility] (BEAKER)[address] [place] [address] Eosinophils/100 WBC (Bld) 0.0 % Normal 0.0-6.0 [facility] Comment on above: Performed By: #### L [id number] ####[facility] ([facility])[address] [place] [address] Erythrocyte distribution width (RBC) [Ratio] 13.2 % Normal 11.5-15.0 [facility] Comment on above: Performed By: #### L [id number] ####[facility] ([facility] [place] [address] ERYTHROCYTE MEAN CORPUSCULAR HEMOGLOBIN CONCENTRATION (G/DL) BY AUTOMATED 35.6 g/dL High 32.0-35.0 [facility] Comment on above: Performed By: #### L [id number] ####[facility] ([facility])[address] [place] [address] Hematocrit (Bld) [Volume fraction] 28.4 % Low 39.0-55.0 [facility] Comment on above: Performed By: #### L [id number] ####[facility] (BEAKER)[address] [place] [address] Hemoglobin (Bld) [Mass/Vol] 10.1 g/dL Low 13.0-17.0 [facility] Comment on above: Performed By: #### L [id number] ####[facility] (BEAKER)[address] [place] [address] Immature granulocytes (Bld) [#/Vol] 0.10 10*3/uL Normal 0.00-0.20 [facility] Comment on above: Performed By: #### L [id number] ####[facility] (BEAKER)[address] [place] [address] Immature granulocytes/100 WBC (Bld) 0.7 % Normal 0.0-1.0 [facility] Comment on above: Performed By: #### L [id number] ####[facility] (BEAKER)[address] [place] [address] IMMATURE PLATELET FRACTION % 2.3 % Normal 0.8-6.3 [facility] Comment on above: Performed By: #### L [id number] ####[facility] (BEAKER)[address] [place] [address] Lymphocytes (Bld) [#/Vol] 0.95 10*3/uL Low 1.20-4.00 [facility] Comment on above: Performed By: #### L [id number] ####[facility] (BEAKER)[address] [place] [address] Lymphocytes/100 WBC (Bld) 6.4 % Low 20.0-45.0 [facility] Comment on above: Performed By: #### L [id number] ####[facility] (BEAKER)[address] [place] [address] MCH (RBC) [Entitic mass] 31.7 pg Normal 27.0-33.0 [facility] Comment on above: Performed By: #### L [id number] ####[facility] (BEAKER)[address] [place] [address] MCV (RBC) [Entitic vol] 89.0 fL Normal 82.0-98.0 [facility] Comment on above: Performed By: #### L [id number] ####[facility] (BEAKER)[address] [place] [address] Monocytes (Bld) [#/Vol] 1.37 10*3/uL High 0.10-1.00 [facility] Comment on above: Performed By: #### L [id number] ####[facility] (BEAKER)[address] [place] [address] Monocytes/100 WBC (Bld) 9.3 % Normal 5.0-12.0 [facility] Comment on above: Performed By: #### L [id number] ####[facility] ([facility])[address] [place] [address] Neutrophils (Bld) [#/Vol] 12.36 10*3/uL High 1.60-7.60 [facility] Comment on above: Performed By: #### L [id number] ####[facility] ([facility])[address] [place] [address] Neutrophils/100 WBC (Bld) 83.5 % High 40.0-72.0 [facility] Comment on above: Performed By: #### L [id number] ####[facility] ([facility])[address] [place] [address] NRBC (PER 100 WBCS) BY AUTOMATED COUNT 0.0 % Normal 0 [facility] Comment on above: Performed By: #### L [id number] ####[facility] ([facility])[address], [place] [address] PLATELETS (10*3/UL) IN BLOOD AUTOMATED COUNT 108 10*3/uL Low 150-400 [facility] Comment on above: Performed By: #### L [id number] ####[facility] ([facility])[address] [place] [address] RBC (Bld) [#/Vol] 3.19 10*6/uL Low 4.20-5.70 [facility] Comment on above: Performed By: #### L [id number] ####[facility] ([facility])[address], [place] [address] WBC (Bld) [#/Vol] 14.79 10*3/uL High 4.00-10.60 [facility] Comment on above: Performed By: #### L [id number] ####[facility] ([facility] [place] [address] CO-OXIMETRYon 04-22-2023 CARBOXYHEMOGLOBIN/ HEMOGLOBIN TOTAL % IN BLOOD 1.5 % Normal [facility] Comment on above: Performed By: #### L [id number] ####[facility] [id number] [place] [address] [place] Hemoglobin (Bld) [Mass/Vol] 12.7 g/dL Normal [facility] Comment on above: Performed By: #### L [id number] ####[facility] [id number] [place] [address] [place] METHEMOGLOBIN/100 IN BLOOD 0.1 % Normal 0.0-1.5 [facility] Comment on above: Performed By: #### L [id number] ####[facility] [id number] [place] [address] [place] Oxygen saturation in Blood 71.7 % Normal [facility] Comment on above: Performed By: #### L [id number] ####[facility] [id number] [place] [address] [place] OXYGENATED HEMOGLOBIN IN BLOOD 70.6 % Normal [facility] Comment on above: Performed By: #### L [id number] ####[facility] [id number] [place] [address] [place] CONSULTon 04-22-2023 CONSULT Normal [facility] FIBRINOGENon 04-22-2023 Magnesium [Mass/Vol] 162 mg/dL Normal 150-425 [facility] Comment on above: Order Comment: Pre-o p diagnosis:NSTEMI (non-ST elevated myocardial infarction) (CMS/HCC) [I21.4]Acute non-ST segment elevation myocardial infarction (CMS/HCC) [I21.4]Coronary artery disease, unspecified vessel or lesion type, unspecified whether angina present, unspecified whether [place] or transplanted heart [I25.10] Performed By: #### L [id number] ####[facility] (BEAKER)[address] [place] [address] HEPATIC FUNCTION PANELon Albumin [Mass/Vol] 2.5 g/dL Low 3.5-5.7 [facility] Comment on above: Performed By: #### L [id number] ####[facility] (BEAKER)[address] [place] [address] ALP [Catalytic activity/Vol] 54 U/L Normal 34-104 [facility] Comment on above: Performed By: #### L [id number] ####[facility] ([facility])[address] [place] [address] ALT [Catalytic activity/Vol] 10 U/L Normal 7-52 [facility] Comment on above: Performed By: #### L [id number] ####[facility] ([facility])[address] [place] [address] AST [Catalytic activity/Vol] 34 U/L Normal 13-39 [facility] Comment on above: Performed By: #### L [id number] ####[facility] ([facility])[address] [place] [address] Bilirubin [Mass/Vol] 0.6 mg/dL Normal 0.3-1.0 [facility] Comment on above: Performed By: #### L [id number] ####[facility] ([facility])[address] [place] [address] Magnesium [Mass/Vol] 0.2 mg/dL Normal 0-0.2 [facility] Comment on above: Performed By: #### L [id number] ####[facility] ([facility])[address] [place] [address] Protein [Mass/Vol] 3.7 g/dL Low 6.0-8.3 [facility] Comment on above: Performed By: #### L [id number] ####[facility] ([facility])[address] [place] [address] HISTOLOGY - TISSUE EXAMon LAB AP CASE REPORT Normal [facility] Comment on above: Order Comment: Pre-o p diagnosis:NSTEMI (non-ST elevated myocardial infarction) (CMS/HCC) [I21.4]Acute non-ST segment elevation myocardial infarction (CMS/HCC) [I21.4]Coronary artery disease, unspecified vessel or lesion type, unspecified whether angina present, unspecified whether [place] or transplanted heart [I25.10] Result Comment: Surg ical Pathology Case: [id number] Provider: Chaitanya Ames MD Collected: 04/22/2023 0928Ordering Location: [facility] Main Operating Room Received: 04/22/2023 1923Pathologist: RAHEEM Wilsonpecimens: A) - Lymph Node, ANTERIOR MEDIASTINAL LYMPH NODE B) - Lymph Node, RIGHT INTERNAL MAMMARY LYMPH NODE FOR HISTOLOGY Performed By: #### L [id number] ####[facility] (BEAKER)[address] [place] [address] LAB AP CLINICAL INFORMATION Normal [facility] Comment on above: Order Comment: Pre-o p diagnosis:NSTEMI (non-ST elevated myocardial infarction) (CMS/HCC) [I21.4]Acute non-ST segment elevation myocardial infarction (CMS/HCC) [I21.4]Coronary artery disease, unspecified vessel or lesion type, unspecified whether angina present, unspecified whether [place] or transplanted heart [I25.10] Result Comment: Post -Op [id number] - NSTEMI (non-ST elevated myocardial infarction) (CMS/HCC) [ICD-10-CM]I21.4 - Acute non-ST segment elevation myocardial infarction (CMS/HCC) [ICD-10-CM]I25.10 - Coronary artery disease, unspecified vessel or lesion type, unspecified whether angina present, unspecified whether [place] ira or transplanted heart [ICD-10-CM] Performed By: #### L [id number] ####[facility] (BEAKER)[address] [place] [address] LAB AP GROSS DESCRIPTION A. Lymph Node. Normal [facility] Comment on above: Order Comment: Pre-o p diagnosis:NSTEMI (non-ST elevated myocardial infarction) (CMS/HCC) [I21.4]Acute non-ST segment elevation myocardial infarction (CMS/HCC) [I21.4]Coronary artery disease, unspecified vessel or lesion type, unspecified whether angina present, unspecified whether [place] or transplanted heart [I25.10] Result Comment: Rece [...] submitted in a single cassette.Jenny Guajardo, Pathologists' [employer] Performed By: #### L [id number] ####[facility] (BEAKER)[address] [place] [address] LAB AP MICROSCOPIC DESCRIPTION Microscopic examination performed. [facility] Comment on above: Order Comment: Pre-o p diagnosis:NSTEMI (non-ST elevated myocardial infarction) (CMS/HCC) [I21.4]Acute non-ST segment elevation myocardial infarction (CMS/HCC) [I21.4]Coronary artery disease, unspecified vessel or lesion type, unspecified whether angina present, unspecified whether point hope ira or transplanted heart [I25.10] Performed By: #### L [id number] ####[facility] (BEAKER)[address] [place] [address] LAB AP REPORT FINAL DIAGNOSIS NARRATIVE [facility] Comment on above: Order Comment: Pre-o p diagnosis:NSTEMI (non-ST elevated myocardial infarction) (CMS/HCC) [I21.4]Acute non-ST segment elevation myocardial infarction (CMS/HCC) [I21.4]Coronary artery disease, unspecified vessel or lesion type, unspecified whether angina present, unspecified whether point hope ira or transplanted heart [I25.10] Result Comment: A. L ymph node, anterior mediastinal, regional resection: - Two benign lymph nodes with sinus histiocytosis and anthracosis (0/2).B. Lymph node, right internal mammary, regional resection: - One benign lymph node with sinus histiocytosis and anthracosis (0/1). - Minute fragment of skeletal muscle and fibroadipose tissue with focal chronic inflammation. Performed By: #### L [id number] ####[facility] ([facility] [place] [address] HPon 04-22-2023 HP H&P reviewed. The pa indy was examined and there are no changes to the H&P. Normal [facility] LACTIC ACID WITH 4 HOUR REFL EXon 04-22-2023 LACTATE (MMOL/L) IN SER/PLAS 2.3 mmol/L High 0.5-2.2 [facility] Comment on above: Order Comment: Pre-o p diagnosis:NSTEMI (non-ST elevated myocardial infarction) (CMS/HCC) [I21.4]Acute non-ST segment elevation myocardial infarction (CMS/HCC) [I21.4]Coronary artery disease, unspecified vessel or lesion type, unspecified whether angina present, unspecified whether point hope ira or transplanted heart [I25.10] Performed By: #### L [id number] ####[facility] ([facility])[address] [place] [address] LACTIC ACID, PLASMAon 2022 LACTATE (MMOL/L) IN SER/PLAS 2.6 mmol/L Critically high 0.5-2.2 [facility] Comment on above: Result Comment: Prev ious result verified on 04/22/2023 1906 on specimen/case [id number] called with component Lactate for procedure Lactic acid, plasma with value 2.7 mmol/L. Performed By: #### L [id number] ####[facility] (BEAKER)[address] [place] [address] LACTATE (MMOL/L) IN SER/PLAS 2.7 mmol/L Critically high 0.5-2.2 [facility] Comment on above: Performed By: #### L [id number] ####[facility] (BEAKER)[address] [place] [address] MAGNESIUMon 04-22-2023 Magnesium [Mass/Vol] 2.1 mg/dL Normal 1.9-2.7 [facility] Comment on above: Performed By: #### L [id number] ####[facility] (BEAKER)[address] [place] [address] Magnesium [Mass/Vol] 2.4 mg/dL Normal 1.9-2.7 [facility] Comment on above: Order Comment: Pre-o p diagnosis:NSTEMI (non-ST elevated myocardial infarction) (CMS/HCC) [I21.4]Acute non-ST segment elevation myocardial infarction (CMS/HCC) [I21.4]Coronary artery disease, unspecified vessel or lesion type, unspecified whether angina present, unspecified whether [place] or transplanted heart [I25.10] Performed By: #### L [id number] ####[facility] (BEAKER)[address] [place] [address] OPNOTEon 04-22-2023 OPNOTE Normal [facility] PHOSPHORUSon 04-22-2023 Magnesium [Mass/Vol] 3.6 mg/dL Normal 2.5-5.0 [facility] Comment on above: Performed By: #### L [id number] ####[facility] (BEAKER)[address] [place] [address] POCT ACTIVATED CLOTTING TIME UNSOLICITED RESULTSon 04-22-2023 POC ACTIVATED CLOTTING TIME 132 sec Normal 82-152 [facility] Comment on above: Performed By: #### L [id number] ####[facility] (BEAKER)[address] [place] [address] POC ACTIVATED CLOTTING TIME 341 sec High 82-152 [facility] Comment on above: Performed By: #### L [id number] ####[facility] (BEAKER)[address] [place] [address] POC ACTIVATED CLOTTING TIME 473 sec High 82-152 [facility] Comment on above: Performed By: #### L [id number] ####[facility] (BEAKER)[address] [place] [address] POC ACTIVATED CLOTTING TIME 516 sec High 82-152 [facility] Comment on above: Performed By: #### L [id number] ####[facility] (BEAKER)[address] [place] [address] POC ACTIVATED CLOTTING TIME 460 sec High 82-152 [facility] Comment on above: Performed By: #### L [id number] ####[facility] (BEAKER)[address] [place] [address] POC ACTIVATED CLOTTING TIME 446 sec High 82-152 [facility] Comment on above: Performed By: #### L [id number] ####[facility] (BEAKER)[address] [place] [address] POC ACTIVATED CLOTTING TIME 479 sec High 82-152 [facility] Comment on above: Performed By: #### L [id number] ####[facility] ([facility])[address] [place] [address] POC ACTIVATED CLOTTING TIME 447 sec High 82-152 [facility] Comment on above: Performed By: #### L [id number] ####[facility] (BEAKER)[address] [place] [address] POC ACTIVATED CLOTTING TIME 596 sec High 82-152 [facility] Comment on above: Performed By: #### L [id number] ####[facility] ([facility])[address] [place] [address] POC ACTIVATED CLOTTING TIME 602 sec High 82-152 [facility] Comment on above: Performed By: #### L [id number] ####[facility] ([facility])[address] [place] [address] POC ACTIVATED CLOTTING TIME 143 sec Normal 82-152 [facility] Comment on above: Performed By: #### L [id number] ####[facility] (BEAKER)[address] [place] [address] POCT GLUCOSE METER UNSOLICIT ED RESULTSon 04-22-2023 Glucose [Mass/Vol] 156 mg/dL High 70-105 [facility] Comment on above: Order Comment: Waive d Testing in the ED is performed under the ED CLIA certificate #[id number]. Result Comment: [email or web address] Performed By: #### L [id number] ####[facility] ([facility])[address] [place] [address] Glucose [Mass/Vol] 121 mg/dL High 70-105 [facility] Comment on above: Order Comment: Waive d Testing in the ED is performed under the ED CLIA certificate #[id number]. Result Comment: [email or web address] Performed By: #### L [id number] ####[facility] ([facility])[address] [place] [address] Glucose [Mass/Vol] 122 mg/dL High 70-105 [facility] Comment on above: Order Comment: Waive d Testing in the ED is performed under the ED CLIA certificate #[id number]. Result Comment: [email or web address] man Performed By: #### L [id number] ####[facility] ([facility])[address] [place] [address] Glucose [Mass/Vol] 137 mg/dL High 70-105 [facility] Comment on above: Order Comment: Waive d Testing in the ED is performed under the ED CLIA certificate #[id number]. Result Comment: [email or web address] Performed By: #### L [id number] ####[facility] ([facility])[address] [place] [address] Glucose [Mass/Vol] 107 mg/dL High 70-105 [facility] Comment on above: Order Comment: Waive d Testing in the ED is performed under the ED CLIA certificate #[id number]. Result Comment: [email or web address] Performed By: #### L [id number] ####[facility] ([facility])[address] [place] [address] POCT PERFUSION PANEL UNSOLIC ITED RESULTSon 04-22-2023 CO2 [Moles/Vol] 25.0 mmol/L Normal 21.0-29.0 [facility] Comment on above: Performed By: #### L [id number] ####[facility] ([facility])[address] [place] [address] Glucose [Mass/Vol] 195 mg/dL High 70-105 [facility] Comment on above: Performed By: #### L [id number] ####[facility] (BEAKER)[address] [address] HCO3 (Bld) [Moles/Vol] 23.6 mmol/L Normal 23.0-28.0 [facility] Comment on above: Performed By: #### L [id number] ####[facility] ([facility])[address] [address] Hematocrit (Bld) [Volume fraction] 27 % Low 38-51 [facility] Comment on above: Performed By: #### L [id number] ####[facility] ([facility])[address] [address] Hemoglobin (Bld) [Mass/Vol] 9.2 g/dL Low 12.0-17.0 [facility] Comment on above: Performed By: #### L [id number] ####[facility] ([facility])[address] [address] POCT BASE EXCESS -3.0 mmol/L Low -2.0-3.0 [facility] Comment on above: Performed By: #### L [id number] ####[facility] ([facility])[address] [address] POCT IONIZED CALCIUM 1.35 mmol/L High 1.12-1.32 [facility] Comment on above: Performed By: #### L [id number] ####[facility] ([facility])[address] [address] POCT PCO2 47.6 mmHg Normal 41.0-51.0 [facility] Comment on above: Performed By: #### L [id number] ####[facility] (BEAKER)[address] [address] POCT PH 7.30 Low 7.31-7.41 [facility] Comment on above: Performed By: #### L [id number] ####[facility] (BEAKER)[address] [place] [address] POCT PO2 355 mmHg High 80-105 [facility] Comment on above: Performed By: #### L [id number] ####[facility] (BEAKER)[address] [place] [address] POCT SO2 100 % High 95-98 [facility] Comment on above: Performed By: #### L [id number] ####[facility] (BEAKER)[address] [place] [address] Potassium [Moles/Vol] 3.2 mmol/L Low 3.5-4.9 [facility] Comment on above: Performed By: #### L [id number] ####[facility] (BEAKER)[address] [address] Sodium [Moles/Vol] 146 mmol/L Normal 138.0-146.0 [facility] Comment on above: Performed By: #### L [id number] ####[facility] (BEAKER)[address] [address] CO2 [Moles/Vol] 26.0 mmol/L Normal 21.0-29.0 [facility] Comment on above: Performed By: #### L [id number] ####[facility] (BEAKER)[address] [address] Glucose [Mass/Vol] 196 mg/dL High 70-105 [facility] Comment on above: Performed By: #### L [id number] ####[facility] (BEAKER)[address] [place] [address] HCO3 (Bld) [Moles/Vol] 24.2 mmol/L Normal 23.0-28.0 [facility] Comment on above: Performed By: #### L [id number] ####[facility] (BEAKER)[address] [place] [address] Hematocrit (Bld) [Volume fraction] 21 % Low 38-51 [facility] Comment on above: Performed By: #### L [id number] ####[facility] (BEAKER)[address] [place] [address] Hemoglobin (Bld) [Mass/Vol] 7.1 g/dL Low 12.0-17.0 [facility] Comment on above: Performed By: #### L [id number] ####[facility] (BEAKER)[address] [place] [address] POCT BASE EXCESS -3.0 mmol/L Low -2.0-3.0 [facility] Comment on above: Performed By: #### L [id number] ####[facility] ([facility])[address] [place] [address] POCT IONIZED CALCIUM 1.19 mmol/L Normal 1.12-1.32 [facility] Comment on above: Performed By: #### L [id number] ####[facility] ([facility])[address] [place] [address] POCT PCO2 52.4 mmHg High 41.0-51.0 [facility] Comment on above: Performed By: #### L [id number] ####[facility] ([facility])[address] [place] [address] POCT PH 7.27 Low 7.31-7.41 [facility] Comment on above: Performed By: #### L [id number] ####[facility] (BEAKER)[address] [place] [address] POCT PO2 488 mmHg High 80-105 [facility] Comment on above: Performed By: #### L [id number] ####[facility] ([facility])[address] [place] [address] POCT SO2 100 % High 95-98 [facility] Comment on above: Performed By: #### L [id number] ####[facility] (BEAKER)[address] [place] [address] Potassium [Moles/Vol] 3.7 mmol/L Normal 3.5-4.9 [facility] Comment on above: Performed By: #### L [id number] ####[facility] (BEAKER)[address] [place] [address] Sodium [Moles/Vol] 145 mmol/L Normal 138.0-146.0 [facility] Comment on above: Performed By: #### L [id number] ####[facility] (BEAKER)[address] [place] [address] CO2 [Moles/Vol] 24.0 mmol/L Normal 21.0-29.0 [facility] Comment on above: Performed By: #### L [id number] ####[facility] (BEAKER)[address] [place] [address] Glucose [Mass/Vol] 177 mg/dL High 70-105 [facility] Comment on above: Performed By: #### L [id number] ####[facility] (BEAKER)[address] [place] [address] HCO3 (Bld) [Moles/Vol] 22.2 mmol/L Low 23.0-28.0 [facility] Comment on above: Performed By: #### L [id number] ####[facility] (BEAKER)[address] [place] [address] Hematocrit (Bld) [Volume fraction] 21 % Low 38-51 [facility] Comment on above: Performed By: #### L [id number] ####[facility] (BEAKER)[address] [place] [address] Hemoglobin (Bld) [Mass/Vol] 7.1 g/dL Low 12.0-17.0 [facility] Comment on above: Performed By: #### L [id number] ####[facility] (BEAKER)[address] [place] [address] POCT BASE EXCESS -4.0 mmol/L Low -2.0-3.0 [facility] Comment on above: Performed By: #### L [id number] ####[facility] (BEAKER)[address] [place] [address] POCT IONIZED CALCIUM 1.32 mmol/L Normal 1.12-1.32 [facility] Comment on above: Performed By: #### L [id number] ####[facility] (BEAKER)[address] [place] [address] POCT PCO2 44.7 mmHg Normal 41.0-51.0 [facility] Comment on above: Performed By: #### L [id number] ####[facility] (BEAKER)[address] [place] [address] POCT PH 7.30 Low 7.31-7.41 [facility] Comment on above: Performed By: #### L [id number] ####[facility] (BEAKER)[address] [place] [address] POCT PO2 449 mmHg High 80-105 [facility] Comment on above: Performed By: #### L [id number] ####[facility] (BEAKER)[address] [place] [address] POCT SO2 100 % High 95-98 [facility] Comment on above: Performed By: #### L [id number] ####[facility] (BEAKER)[address] [place] [address] Potassium [Moles/Vol] 4.4 mmol/L Normal 3.5-4.9 [facility] Comment on above: Performed By: #### L [id number] ####[facility] (BEAKER)[address] [place] [address] Sodium [Moles/Vol] 141 mmol/L Normal 138.0-146.0 [facility] Comment on above: Performed By: #### L [id number] ####[facility] (BEAKER)[address] [place] [address] CO2 [Moles/Vol] 25.0 mmol/L Normal 21.0-29.0 [facility] Comment on above: Performed By: #### L [id number] ####[facility] (BEAKER)[address] [place] [address] Glucose [Mass/Vol] 171 mg/dL High 70-105 [facility] Comment on above: Performed By: #### L [id number] ####[facility] (BEAKER)[address] [address] HCO3 (Bld) [Moles/Vol] 24.0 mmol/L Normal 23.0-28.0 [facility] Comment on above: Performed By: #### L [id number] ####[facility] (BEAKER)[address] [address] Hematocrit (Bld) [Volume fraction] 26 % Low 38-51 [facility] Comment on above: Performed By: #### L [id number] ####[facility] (BEAKER)[address] [address] Hemoglobin (Bld) [Mass/Vol] 8.8 g/dL Low 12.0-17.0 [facility] Comment on above: Performed By: #### L [id number] ####[facility] ([facility])[address] [address] POCT BASE EXCESS -1.0 mmol/L Normal -2.0-3.0 [facility] Comment on above: Performed By: #### L [id number] ####[facility] ([facility])[address] [address] POCT IONIZED CALCIUM 1.06 mmol/L Low 1.12-1.32 [facility] Comment on above: Performed By: #### L [id number] ####[facility] ([facility]ER)[address] [address] POCT PCO2 38.1 mmHg Low 41.0-51.0 [facility] Comment on above: Performed By: #### L [id number] ####[facility] ([facility]ER)[address] [address] POCT PH 7.41 Normal 7.31-7.41 [facility] Comment on above: Performed By: #### L [id number] ####[facility] (BEAKER)[address] [address] POCT PO2 534 mmHg High 80-105 [facility] Comment on above: Performed By: #### L [id number] ####[facility] (BEAKER)[address] [place] [address] POCT SO2 100 % High 95-98 [facility] Comment on above: Performed By: #### L [id number] ####[facility] (BEAKER)[address] [place] [address] Potassium [Moles/Vol] 4.1 mmol/L Normal 3.5-4.9 [facility] Comment on above: Performed By: #### L [id number] ####[facility] (BEAKER)[address] [place] [address] Sodium [Moles/Vol] 141 mmol/L Normal 138.0-146.0 [facility] Comment on above: Performed By: #### L [id number] ####[facility] (BEAKER)[address] [place] [address] CO2 [Moles/Vol] 27.0 mmol/L Normal 21.0-29.0 [facility] Comment on above: Performed By: #### L [id number] ####[facility] (BEAKER)[address] [place] [address] Glucose [Mass/Vol] 187 mg/dL High 70-105 [facility] Comment on above: Performed By: #### L [id number] ####[facility] (BEAKER)[address] [place] [address] HCO3 (Bld) [Moles/Vol] 25.8 mmol/L Normal 23.0-28.0 [facility] Comment on above: Performed By: #### L [id number] ####[facility] (BE[facility]ER)[address] [place] [address] Hematocrit (Bld) [Volume fraction] 26 % Low 38-51 [facility] Comment on above: Performed By: #### L [id number] ####[facility] (BEAKER)[address] [place] [address] Hemoglobin (Bld) [Mass/Vol] 8.8 g/dL Low 12.0-17.0 [facility] Comment on above: Performed By: #### L [id number] ####[facility] (BEAKER)[address] [place] [address] POCT BASE EXCESS 1.0 mmol/L Normal -2.0-3.0 [facility] Comment on above: Performed By: #### L [id number] ####[facility] (BEAKER)[address] [place] [address] POCT IONIZED CALCIUM 1.06 mmol/L Low 1.12-1.32 [facility] Comment on above: Performed By: #### L [id number] ####[facility] (BEAKER)[address] [place] [address] POCT PCO2 40.4 mmHg Low 41.0-51.0 [facility] Comment on above: Performed By: #### L [id number] ####[facility] (BEAKER)[address] [place] [address] POCT PH 7.41 Normal 7.31-7.41 [facility] Comment on above: Performed By: #### L [id number] ####[facility] (BEAKER)[address] [place] [address] POCT PO2 506 mmHg High 80-105 [facility] Comment on above: Performed By: #### L [id number] ####[facility] (BEAKER)[address] [place] [address] POCT SO2 100 % High 95-98 [facility] Comment on above: Performed By: #### L [id number] ####[facility] (BEAKER)[address] [place] [address] Potassium [Moles/Vol] 4.2 mmol/L Normal 3.5-4.9 [facility] Comment on above: Performed By: #### L [id number] ####[facility] (BEAKER)[address] [place] [address] Sodium [Moles/Vol] 141 mmol/L Normal 138.0-146.0 [facility] Comment on above: Performed By: #### L [id number] ####[facility] (BEAKER)[address] [place] [address] CO2 [Moles/Vol] 23.0 mmol/L Normal 21.0-29.0 [facility] Comment on above: Performed By: #### L [id number] ####[facility] (BEAKER)[address] [place] [address] Glucose [Mass/Vol] 211 mg/dL High 70-105 [facility] Comment on above: Performed By: #### L [id number] ####[facility] (BEAKER)[address] [place] [address] HCO3 (Bld) [Moles/Vol] 22.1 mmol/L Low 23.0-28.0 [facility] Comment on above: Performed By: #### L [id number] ####[facility] (BE[facility]ER)[address] [place] [address] Hematocrit (Bld) [Volume fraction] 28 % Low 38-51 [facility] Comment on above: Performed By: #### L [id number] ####[facility] (BEAKER)[address] [place] [address] Hemoglobin (Bld) [Mass/Vol] 9.5 g/dL Low 12.0-17.0 [facility] Comment on above: Performed By: #### L [id number] ####[facility] (BEAKER)[address] [place] [address] POCT BASE EXCESS -3.0 mmol/L Low -2.0-3.0 [facility] Comment on above: Performed By: #### L [id number] ####[facility] (BEAKER)[address] [place] [address] POCT IONIZED CALCIUM 1.08 mmol/L Low 1.12-1.32 [facility] Comment on above: Performed By: #### L [id number] ####[facility] (BEAKER)[address] [place] [address] POCT PCO2 38.1 mmHg Low 41.0-51.0 [facility] Comment on above: Performed By: #### L [id number] ####[facility] (BEAKER)[address] [place] [address] POCT PH 7.37 Normal 7.31-7.41 [facility] Comment on above: Performed By: #### L [id number] ####[facility] (BEAKER)[address] [place] [address] POCT PO2 418 mmHg High 80-105 [facility] Comment on above: Performed By: #### L [id number] ####[facility] (BEAKER)[address] [place] [address] POCT SO2 100 % High 95-98 [facility] Comment on above: Performed By: #### L [id number] ####[facility] (BEAKER)[address] [place] [address] Potassium [Moles/Vol] 4.7 mmol/L Normal 3.5-4.9 [facility] Comment on above: Performed By: #### L [id number] ####[facility] (BEAKER)[address] [place] [address] Sodium [Moles/Vol] 137 mmol/L Low 138.0-146.0 [facility] Comment on above: Performed By: #### L [id number] ####[facility] (BEAKER)[address] [place] [address] CO2 [Moles/Vol] 24.0 mmol/L Normal 21.0-29.0 [facility] Comment on above: Performed By: #### L [id number] ####[facility] (BEAKER)[address] [place] [address] Glucose [Mass/Vol] 203 mg/dL High 70-105 [facility] Comment on above: Performed By: #### L [id number] ####[facility] ([facility]ER)[address] [address] HCO3 (Bld) [Moles/Vol] 22.6 mmol/L Low 23.0-28.0 [facility] Comment on above: Performed By: #### L [id number] ####[facility] (BEAKER)[address] [address] Hematocrit (Bld) [Volume fraction] 26 % Low 38-51 [facility] Comment on above: Performed By: #### L [id number] ####[facility] (BEAKER)[address] [address] Hemoglobin (Bld) [Mass/Vol] 8.8 g/dL Low 12.0-17.0 [facility] Comment on above: Performed By: #### L [id number] ####[facility] (BEAKER)[address] [address] POCT BASE EXCESS -2.0 mmol/L Normal -2.0-3.0 [facility] Comment on above: Performed By: #### L [id number] ####[facility] (BEAKER)[address] [address] POCT IONIZED CALCIUM 1.06 mmol/L Low 1.12-1.32 [facility] Comment on above: Performed By: #### L [id number] ####[facility] ([facility])[address] [address] POCT PCO2 38.7 mmHg Low 41.0-51.0 [facility] Comment on above: Performed By: #### L [id number] ####[facility] ([facility]ER)[address] [address] POCT PH 7.38 Normal 7.31-7.41 [facility] Comment on above: Performed By: #### L [id number] ####[facility] ([facility]ER)[address] [address] POCT PO2 377 mmHg High 80-105 [facility] Comment on above: Performed By: #### L [id number] ####[facility] (BEAKER)[address] [place] [address] POCT SO2 100 % High 95-98 [facility] Comment on above: Performed By: #### L [id number] ####[facility] (BEAKER)[address] [place] [address] Potassium [Moles/Vol] 5.0 mmol/L High 3.5-4.9 [facility] Comment on above: Performed By: #### L [id number] ####[facility] (BE[facility]ER)[address] [place] [address] Sodium [Moles/Vol] 137 mmol/L Low 138.0-146.0 [facility] Comment on above: Performed By: #### L [id number] ####[facility] (BEAKER)[address] [place] [address] CO2 [Moles/Vol] 24.0 mmol/L Normal 21.0-29.0 [facility] Comment on above: Performed By: #### L [id number] ####[facility] (BEAKER)[address] [place] [address] Glucose [Mass/Vol] 193 mg/dL High 70-105 [facility] Comment on above: Performed By: #### L [id number] ####[facility] (BEAKER)[address] [place] [address] HCO3 (Bld) [Moles/Vol] 23.3 mmol/L Normal 23.0-28.0 [facility] Comment on above: Performed By: #### L [id number] ####[facility] (BE[facility]ER)[address] [place] [address] Hematocrit (Bld) [Volume fraction] 28 % Low 38-51 [facility] Comment on above: Performed By: #### L [id number] ####[facility] ([facility]AKER)[address] [place] [address] Hemoglobin (Bld) [Mass/Vol] 9.5 g/dL Low 12.0-17.0 [facility] Comment on above: Performed By: #### L [id number] ####[facility] ([facility])[address] [address] POCT BASE EXCESS -2.0 mmol/L Normal -2.0-3.0 [facility] Comment on above: Performed By: #### L [id number] ####[facility] ([facility])[address] [address] POCT IONIZED CALCIUM 1.07 mmol/L Low 1.12-1.32 [facility] Comment on above: Performed By: #### L [id number] ####[facility] ([facility])[address] [address] POCT PCO2 38.7 mmHg Low 41.0-51.0 [facility] Comment on above: Performed By: #### L [id number] ####[facility] ([facility])[address] [address] POCT PH 7.39 Normal 7.31-7.41 [facility] Comment on above: Performed By: #### L [id number] ####[facility] ([facility])[address] [address] POCT PO2 367 mmHg High 80-105 [facility] Comment on above: Performed By: #### L [id number] ####[facility] ([facility])[address] [address] POCT SO2 100 % High 95-98 [facility] Comment on above: Performed By: #### L [id number] ####[facility] ([facility])[address] [address] Potassium [Moles/Vol] 5.6 mmol/L High 3.5-4.9 [facility] Comment on above: Performed By: #### L [id number] ####[facility] ([facility])[address] [place] [address] Sodium [Moles/Vol] 138 mmol/L Normal 138.0-146.0 [facility] Comment on above: Performed By: #### L [id number] ####[facility] ([facility])[address] [place] [address] CO2 [Moles/Vol] 25.0 mmol/L Normal 21.0-29.0 [facility] Comment on above: Performed By: #### L [id number] ####[facility] (BE[facility]ER)[address] [place] [address] Glucose [Mass/Vol] 165 mg/dL High 70-105 [facility] Comment on above: Performed By: #### L [id number] ####[facility] (BEAKER)[address] [place] [address] HCO3 (Bld) [Moles/Vol] 23.5 mmol/L Normal 23.0-28.0 [facility] Comment on above: Performed By: #### L [id number] ####[facility] (BE[facility]ER)[address] [place] [address] Hematocrit (Bld) [Volume fraction] 27 % Low 38-51 [facility] Comment on above: Performed By: #### L [id number] ####[facility] (BE[facility]ER)[address] [place] [address] Hemoglobin (Bld) [Mass/Vol] 9.2 g/dL Low 12.0-17.0 [facility] Comment on above: Performed By: #### L [id number] ####[facility] ([facility])[address] [place] [address] POCT BASE EXCESS -1.0 mmol/L Normal -2.0-3.0 [facility] Comment on above: Performed By: #### L [id number] ####[facility] (BE[facility]ER)[address] [place] [address] POCT IONIZED CALCIUM 1.08 mmol/L Low 1.12-1.32 [facility] Comment on above: Performed By: #### L [id number] ####[facility] ([facility])[address] [place] [address] POCT PCO2 38.4 mmHg Low 41.0-51.0 [facility] Comment on above: Performed By: #### L [id number] ####[facility] ([facility]ER)[address] [place] [address] POCT PH 7.39 Normal 7.31-7.41 [facility] Comment on above: Performed By: #### L [id number] ####[facility] ([facility]ER)[address] [place] [address] POCT PO2 387 mmHg High 80-105 [facility] Comment on above: Performed By: #### L [id number] ####[facility] (BE[facility]ER)[address] [place] [address] POCT SO2 100 % High 95-98 [facility] Comment on above: Performed By: #### L [id number] ####[facility] ([facility]ER)[address] [place] [address] Potassium [Moles/Vol] 5.9 mmol/L High 3.5-4.9 [facility] Comment on above: Performed By: #### L [id number] ####[facility] (BEAKER)[address] [place] [address] Sodium [Moles/Vol] 138 mmol/L Normal 138.0-146.0 [facility] Comment on above: Performed By: #### L [id number] ####[facility] (BE[facility]ER)[address] [place] [address] CO2 [Moles/Vol] 26.0 mmol/L Normal 21.0-29.0 [facility] Comment on above: Performed By: #### L [id number] ####[facility] ([facility]ER)[address] [place] [address] Glucose [Mass/Vol] 142 mg/dL High 70-105 [facility] Comment on above: Performed By: #### L [id number] ####[facility] ([facility]ER)[address] [address] HCO3 (Bld) [Moles/Vol] 24.5 mmol/L Normal 23.0-28.0 [facility] Comment on above: Performed By: #### L [id number] ####[facility] (BE[facility]ER)[address] [address] Hematocrit (Bld) [Volume fraction] 24 % Low 38-51 [facility] Comment on above: Performed By: #### L [id number] ####[facility] (BE[facility]ER)[address] [address] Hemoglobin (Bld) [Mass/Vol] 8.2 g/dL Low 12.0-17.0 [facility] Comment on above: Performed By: #### L [id number] ####[facility] (BE[facility]ER)[address] [address] POCT BASE EXCESS -1.0 mmol/L Normal -2.0-3.0 [facility] Comment on above: Performed By: #### L [id number] ####[facility] (BEAKER)[address] [address] POCT IONIZED CALCIUM 0.99 mmol/L Low 1.12-1.32 [facility] Comment on above: Performed By: #### L [id number] ####[facility] ([facility]ER)[address] [address] POCT PCO2 44.6 mmHg Normal 41.0-51.0 [facility] Comment on above: Performed By: #### L [id number] ####[facility] ([facility]ER)[address] [address] POCT PH 7.35 Normal 7.31-7.41 [facility] Comment on above: Performed By: #### L [id number] ####[facility] ([facility]ER)[address] [address] POCT PO2 462 mmHg High 80-105 [facility] Comment on above: Performed By: #### L [id number] ####[facility] ([facility]ER)[address] [place] [address] POCT SO2 100 % High 95-98 [facility] Comment on above: Performed By: #### L [id number] ####[facility] (BE[facility]ER)[address] [place] [address] Potassium [Moles/Vol] 6.2 mmol/L Critically high 3.5-4.9 [facility] Comment on above: Performed By: #### L [id number] ####[facility] ([facility]ER)[address] [place] [address] Sodium [Moles/Vol] 136 mmol/L Low 138.0-146.0 [facility] Comment on above: Performed By: #### L [id number] ####[facility] ([facility]ER)[address] [place] [address] CO2 [Moles/Vol] 24.0 mmol/L Normal 21.0-29.0 [facility] Comment on above: Performed By: #### L [id number] ####[facility] ([facility]ER)[address] [place] [address] Glucose [Mass/Vol] 151 mg/dL High 70-105 [facility] Comment on above: Performed By: #### L [id number] ####[facility] (BE[facility]ER)[address] [place] [address] HCO3 (Bld) [Moles/Vol] 22.6 mmol/L Low 23.0-28.0 [facility] Comment on above: Performed By: #### L [id number] ####[facility] (BE[facility]ER)[address] [place] [address] Hematocrit (Bld) [Volume fraction] 38 % Normal 38-51 [facility] Comment on above: Performed By: #### L [id number] ####[facility] (BE[facility]ER)[address] [place] [address] Hemoglobin (Bld) [Mass/Vol] 12.9 g/dL Normal 12.0-17.0 [facility] Comment on above: Performed By: #### L [id number] ####[facility] ([facility]ER)[address] [address] POCT BASE EXCESS -4.0 mmol/L Low -2.0-3.0 [facility] Comment on above: Performed By: #### L [id number] ####[facility] (BE[facility]ER)[address] [address] POCT IONIZED CALCIUM 1.25 mmol/L Normal 1.12-1.32 [facility] Comment on above: Performed By: #### L [id number] ####[facility] (BE[facility]ER)[address] [address] POCT PCO2 47.5 mmHg Normal 41.0-51.0 [facility] Comment on above: Performed By: #### L [id number] ####[facility] (BEAKER)[address], [place] [address] POCT PH 7.29 Low 7.31-7.41 [facility] Comment on above: Performed By: #### L [id number] ####[facility] (BEAKER)[address] [address] POCT PO2 336 mmHg High 80-105 [facility] Comment on above: Performed By: #### L [id number] ####[facility] ([facility] [place] [address] POCT SO2 100 % High 95-98 [facility] Comment on above: Performed By: #### L [id number] ####[facility] (BEAKER)[address], [place] [address] Potassium [Moles/Vol] 4.4 mmol/L Normal 3.5-4.9 [facility] Comment on above: Performed By: #### L [id number] ####[facility] (BE[facility]ER)[address] [place] [address] Sodium [Moles/Vol] 139 mmol/L Normal 138.0-146.0 [facility] Comment on above: Performed By: #### L [id number] ####[facility] (BEAKER)[address] [place] [address] CO2 [Moles/Vol] 23.0 mmol/L Normal 21.0-29.0 [facility] Comment on above: Performed By: #### L [id number] ####[facility] (BE[facility]ER)[address] [place] [address] Glucose [Mass/Vol] 123 mg/dL High 70-105 [facility] Comment on above: Performed By: #### L [id number] ####[facility] (BEAKER)[address] [place] [address] HCO3 (Bld) [Moles/Vol] 22.1 mmol/L Low 23.0-28.0 [facility] Comment on above: Performed By: #### L [id number] ####[facility] (BEAKER)[address] [place] [address] Hematocrit (Bld) [Volume fraction] 38 % Normal 38-51 [facility] Comment on above: Performed By: #### L [id number] ####[facility] (BEAKER)[address] [place] [address] Hemoglobin (Bld) [Mass/Vol] 12.9 g/dL Normal 12.0-17.0 [facility] Comment on above: Performed By: #### L [id number] ####[facility] (BEAKER)[address] [place] [address] POCT BASE EXCESS -3.0 mmol/L Low -2.0-3.0 [facility] Comment on above: Performed By: #### L [id number] ####[facility] (BEAKER)[address] [place] [address] POCT IONIZED CALCIUM 1.25 mmol/L Normal 1.12-1.32 [facility] Comment on above: Performed By: #### L [id number] ####[facility] (BE[facility]ER)[address] [place] [address] POCT PCO2 39.3 mmHg Low 41.0-51.0 [facility] Comment on above: Performed By: #### L [id number] ####[facility] ([facility])[address] [place] [address] POCT PH 7.36 Normal 7.31-7.41 [facility] Comment on above: Performed By: #### L [id number] ####[facility] ([facility])[address] [place] [address] POCT PO2 412 mmHg High 80-105 [facility] Comment on above: Performed By: #### L [id number] ####[facility] ([facility])[address] [place] [address] POCT SO2 100 % High 95-98 [facility] Comment on above: Performed By: #### L [id number] ####[facility] ([facility])[address] [place] [address] Potassium [Moles/Vol] 3.8 mmol/L Normal 3.5-4.9 [facility] Comment on above: Performed By: #### L [id number] ####[facility] ([facility])[address] [place] [address] Sodium [Moles/Vol] 140 mmol/L Normal 138.0-146.0 [facility] Comment on above: Performed By: #### L [id number] ####[facility] ([facility])[address] [place] [address] PROTIME-INRon 04-22-2023 INR IN PPP BY COAGULATION ASSAY 1.60 High 0.90-1.10 [facility] Comment on above: Result Comment: [facility] P RECOMMENDED INR FOR WARFARIN THERAPY CONDITION INRPROPHYLAXIS OF VENOUS THROMBOSIS 2-3(HIGH-RISK SURGERY)TREATMENT OF VENOUS THROMBOSIS 2-3TREATMENT OF PULMONARY EMBOLISM 2-3PREVENTION OF SYSTEMIC EMBOLISM: 2-3 ACUTE MYOCARDIAL INFARCTION TISSUE HEART VALVES VALVULAR HEART DISEASE ATRIAL FIBRILLATION RECURRENT SYSTEMIC EMBOLISMMECHANICAL HEART VALVE 2.5-3.5 FROM: ORAL ANTICOAGULANTS. MECHANISM OF ACTION, CLINICAL EFFECTIVENESS, AND OPTIMAL THERAPEUTIC RANGE. CHEST 1995;108:231S-246S. Performed By: #### L [id number] ####[facility] ([employer] [place] [address] PROTHROMBIN TIME (PT) IN PPP BY COAGULATION ASSAY 19.1 Seconds High 12.3-14.8 [facility] Comment on above: Performed By: #### L [id number] ####[facility] (BEAKER)[address] [place] [address] INR IN PPP BY COAGULATION ASSAY 1.72 High 0.90-1.10 [facility] Comment on above: Result Comment: ACCC [...] CHEST 1995;108:231S-246S. Performed By: #### L [id number] ####[facility] (BEAKER)[address] [place] [address] PROTHROMBIN TIME (PT) IN PPP BY COAGULATION ASSAY 20.2 Seconds High 12.3-14.8 [facility] Comment on above: Performed By: #### L [id number] ####[facility] (BEAKER)[address] [place] [address] INR IN PPP BY COAGULATION ASSAY 2.00 High 0.90-1.10 [facility] Comment on above: Order Comment: Pre-o p diagnosis:NSTEMI (non-ST elevated myocardial infarction) (CMS/HCC) [I21.4]Acute non-ST segment elevation myocardial infarction (CMS/HCC) [I21.4]Coronary artery disease, unspecified vessel or lesion type, unspecified whether angina present, unspecified whether point hope ira or transplanted heart [I25.10] Result Comment: ACCC [...] CHEST 1995;108:231S-246S. Performed By: #### L [id number] ####[facility] ([facility] [place] [address] PROTHROMBIN TIME (PT) IN PPP BY COAGULATION ASSAY 22.8 Seconds High 12.3-14.8 [facility] Comment on above: Order Comment: Pre-o p diagnosis:NSTEMI (non-ST elevated myocardial infarction) (CMS/HCC) [I21.4]Acute non-ST segment elevation myocardial infarction (CMS/HCC) [I21.4]Coronary artery disease, unspecified vessel or lesion type, unspecified whether angina present, unspecified whether point hope ira or transplanted heart [I25.10] Performed By: #### L [id number] ####[facility] ([facility])[address] [place] [address] 36on 04-21-2023 36 Called patient and l eft voicemail. Updated NPO after midnight and not to take any medications in the AM. Surgery scheduled for 0730am. Normal [facility] ANESon 04-21-2023 ANES Normal [facility] Telephoneon 04-21-2023 Telephone [phone] OrtizGui 1955 M Date Provider Department [place] 04/21/2023 KAREY MAGANA [facility] [place] [facility] Family History Family history unknown: Yes [facility] APTTon 04-09-2023 ACTIVATED PARTIAL THROMBOPLASTIN TIME IN PPP BY COAGULATION ASSAY 34.7 Seconds Normal 25.0-35.0 [facility] Comment on above: Result Comment: Clin ical significance of the APTT is questionable in the presence of heparin. Performed By: #### L [id number] ####[facility] ([email or web address])[address] [place] [address] BASIC METABOLIC PANELon 10- Anion gap [Moles/Vol] 11 mmol/L Normal 7-20 [facility] Comment on above: Performed By: #### L [id number] ####[facility] ([facility] [place] [address] Calcium [Mass/Vol] 9.8 mg/dL Normal 8.6-10.3 [facility] Comment on above: Performed By: #### L [id number] ####[facility] (BEAKER)[address] [place] [address] Chloride [Moles/Vol] 105 mmol/L Normal 98-107 [facility] Comment on above: Performed By: #### L [id number] ####[facility] (BEAKER)[address] [place] [address] CO2 [Moles/Vol] 25 mmol/L Normal 21-31 [facility] Comment on above: Performed By: #### L [id number] ####[facility] (BEAKER)[address] [place] [address] Creatinine [Mass/Vol] 0.91 mg/dL Normal 0.70-1.30 [facility] Comment on above: Performed By: #### L [id number] ####[facility] ([facility])[address] [place] [address] GLOMERULAR FILTRATION RATE ML/MIN/1.73 SQ M.PREDICTED 91.2 mL/min/1.73m*2 Normal >60.0 [facility] Comment on above: Result Comment: [facility]???s estimated glomerular filtration rate (eGFR) will [...] of individuals. Performed By: #### L [id number] ####[facility] (BEAKER)[address] [place] [address] Glucose [Mass/Vol] 105 mg/dL High 70-100 [facility] Comment on above: Performed By: #### L [id number] ####[facility] (BEAKER)[address] [place] [address] Potassium [Moles/Vol] 3.9 mmol/L Normal 3.5-5.1 [facility] Comment on above: Performed By: #### L [id number] ####[facility] ([facility])[address] [place] [address] Sodium [Moles/Vol] 137 mmol/L Normal 136-145 [facility] Comment on above: Performed By: #### L [id number] ####[facility] ([facility])[address] [place] [address] Urea nitrogen [Mass/Vol] 15 mg/dL Normal 7-25 [facility] Comment on above: Performed By: #### L [id number] ####[facility] ([facility])[address] [place] [address] UREA NITROGEN/CREATININ E (MASS RATIO) IN SER/PLAS 16.5 Normal [facility] Comment on above: Performed By: #### L [id number] ####[facility] ([facility])[address] [place] [address] CBC WITH AUTO DIFFERENTIALon 04-09-2023 Basophils (Bld) [#/Vol] 0.05 10*3/uL Normal 0.00-0.20 [facility] Comment on above: Performed By: #### L [id number] ####[facility] ([facility])[address] [place] [address] Basophils/100 WBC (Bld) 0.8 % Normal 0.0-1.0 [facility] Comment on above: Performed By: #### L [id number] ####[facility] ([facility])[address] [place] [address] Eosinophils (Bld) [#/Vol] 0.09 10*3/uL Normal 0.00-0.50 [facility] Comment on above: Performed By: #### L [id number] ####[facility] ([facility])[address] [place] [address] Eosinophils/100 WBC (Bld) 1.4 % Normal 0.0-6.0 [facility] Comment on above: Performed By: #### L [id number] ####[facility] ([facility])[address] [place] [address] Erythrocyte distribution width (RBC) [Ratio] 13.1 % Normal 11.5-15.0 [facility] Comment on above: Performed By: #### L [id number] ####[facility] ([facility])[address] [place] [address] ERYTHROCYTE MEAN CORPUSCULAR HEMOGLOBIN CONCENTRATION (G/DL) BY AUTOMATED 33.3 g/dL Normal 32.0-35.0 [facility] Comment on above: Performed By: #### L [id number] ####[facility] ([facility])[address] [place] [address] Hematocrit (Bld) [Volume fraction] 43.0 % Normal 39.0-55.0 [facility] Comment on above: Performed By: #### L [id number] ####[facility] ([facility])[address] [place] [address] Hemoglobin (Bld) [Mass/Vol] 14.3 g/dL Normal 13.0-17.0 [facility] Comment on above: Performed By: #### L [id number] ####[facility] ([facility])[address] [place] [address] Immature granulocytes (Bld) [#/Vol] 0.03 10*3/uL Normal 0.00-0.20 [facility] Comment on above: Performed By: #### L [id number] ####[facility] ([facility])[address] [place] [address] Immature granulocytes/100 WBC (Bld) 0.5 % Normal 0.0-1.0 [facility] Comment on above: Performed By: #### L [id number] ####[facility] (BEAKER)[address] [place] [address] Lymphocytes (Bld) [#/Vol] 2.46 10*3/uL Normal 1.20-4.00 [facility] Comment on above: Performed By: #### L [id number] ####[facility] (BEAKER)[address] [place] [address] Lymphocytes/100 WBC (Bld) 38.2 % Normal 20.0-45.0 [facility] Comment on above: Performed By: #### L [id number] ####[facility] (BEAKER)[address] [place] [address] MCH (RBC) [Entitic mass] 30.4 pg Normal 27.0-33.0 [facility] Comment on above: Performed By: #### L [id number] ####[facility] (BEAKER)[address] [place] [address] MCV (RBC) [Entitic vol] 91.3 fL Normal 82.0-98.0 [facility] Comment on above: Performed By: #### L [id number] ####[facility] (BEAKER)[address] [place] [address] Monocytes (Bld) [#/Vol] 0.51 10*3/uL Normal 0.10-1.00 [facility] Comment on above: Performed By: #### L [id number] ####[facility] (BEAKER)[address] [place] [address] Monocytes/100 WBC (Bld) 7.9 % Normal 5.0-12.0 [facility] Comment on above: Performed By: #### L [id number] ####[facility] (BEAKER)[address] [place] [address] Neutrophils (Bld) [#/Vol] 3.30 10*3/uL Normal 1.60-7.60 [facility] Comment on above: Performed By: #### L [id number] ####[facility] (BEAKER)[address] [place] [address] Neutrophils/100 WBC (Bld) 51.2 % Normal 40.0-72.0 [facility] Comment on above: Performed By: #### L [id number] ####[facility] (BEAKER)[address] [place] [address] NRBC (PER 100 WBCS) BY AUTOMATED COUNT 0.0 % Normal 0 [facility] Comment on above: Performed By: #### L [id number] ####[facility] (BEAKER)[address] [address] PLATELETS (10*3/UL) IN BLOOD AUTOMATED COUNT 281 10*3/uL Normal 150-400 [facility] Comment on above: Performed By: #### L [id number] ####[facility] ([facility] [address] RBC (Bld) [#/Vol] 4.71 10*6/uL Normal 4.20-5.70 [facility] Comment on above: Performed By: #### L [id number] ####[facility] ([facility])[address] [address] WBC (Bld) [#/Vol] 6.44 10*3/uL Normal 4.00-10.60 [facility] Comment on above: Performed By: #### L [id number] ####[facility] ([facility])[address] [place] [address] ETHANOLon 04-09-2023 ETHANOL (MG/DL) IN SER/PLAS <10 Normal [facility] Comment on above: Result Comment: No E thanol detected Performed By: #### L [id number] ####[facility] (BEAKER)[address] [place] [address] ETHANOL CALCULATED (%) Normal [facility] Comment on above: Performed By: #### L [id number] ####[facility] ([facility])[address] [place] [address] Follow-Upon 04-09-2023 Follow-Up Normal [facility] HEMOGLOBIN A1Con 04-09-2023 Glucose [Mass/Vol] 128 mg/dL Normal [facility] Comment on above: Performed By: #### L [id number] ####[facility] ([facility])[address] [place] [address] HbA1c (Bld) [Mass fraction] 6.1 % High 4.0-6.0 [facility] Comment on above: Performed By: #### L [id number] ####[facility] ([facility])[address] [place] [address] HPon 04-09-2023 HP Normal [facility] Labon 04-09-2023 Lab [id number] Sarina Ortizan 1955 M Date Provider Department Balk[place] 04/09/2023 2245-[facility] OPD LAB RESOURCE [facility] [place] Medical C Family History Family history unknown: Yes Normal [facility] MRSA/MSSA DNA NASALon 2022 MRSA DNA Negative Normal Negative [facility] Comment on above: Order Comment: Testi [...] preclude nasal colonization. Performed By: #### L [id number] ####[facility] ([facility])[address] [place] [address] MSSA DNA Negative Normal Negative [facility] Comment on above: Order Comment: Testi [...] preclude nasal colonization. Performed By: #### L [id number] ####[facility] ([facility])[address] [place] [address] Orders Onlyon 04-09-2023 Orders Only [id number] OrtizGui 1955 M Date Provider Department Center 04/09/2023 Tony-ALEJO PAREDES HVCVASENDO [facility] Family History Family history unknown: Yes Normal [facility] PROTIME-INRon 04-09-2023 INR IN PPP BY COAGULATION ASSAY 1.00 Normal 0.90-1.10 [facility] Comment on above: Result Comment: [facility] P RECOMMENDED INR FOR WARFARIN THERAPY CONDITION INRPROPHYLAXIS OF VENOUS THROMBOSIS 2-3(HIGH-RISK SURGERY)TREATMENT OF VENOUS THROMBOSIS 2-3TREATMENT OF PULMONARY EMBOLISM 2-3PREVENTION OF SYSTEMIC EMBOLISM: 2-3 ACUTE MYOCARDIAL INFARCTION TISSUE HEART VALVES VALVULAR HEART DISEASE ATRIAL FIBRILLATION RECURRENT SYSTEMIC EMBOLISMMECHANICAL HEART VALVE 2.5-3.5 FROM: ORAL ANTICOAGULANTS. MECHANISM OF ACTION, CLINICAL EFFECTIVENESS, AND OPTIMAL THERAPEUTIC RANGE. CHEST 1995;108:[id number]-246S. Performed By: #### L [id number] ####[facility] (BEAKER)[address] [place] [address] PROTHROMBIN TIME (PT) IN PPP BY COAGULATION ASSAY 13.2 Seconds Normal 12.3-14.8 [facility] Comment on above: Performed By: #### L [id number] ####[facility] (BEAKER)[address] [place] [address] TOXICOLOGY PANEL URINEon AMPHETAMINE+METHAM PHETAMINE SCREEN (PRESENCE) IN URINE Negative Normal Negative [facility] Comment on above: Performed By: #### L [id number] ####[facility] (BEAKER)[address] [place] [address] BARBITURATES PRESENCE IN URINE BY SCREEN METHOD Negative Normal Negative [facility] Comment on above: Performed By: #### L [id number] ####[facility] (BEAKER)[address] [place] [address] Benzodiazepines Ql (U) Negative Normal Negative [facility] Comment on above: Performed By: #### L [id number] ####[facility] ([facility])[address] [place] [address] CANNABINOID (PRESENCE) IN URINE BY SCREEN METHOD Negative Normal Negative [facility] Comment on above: Performed By: #### L [id number] ####[facility] ([facility])[address] [place] [address] Cocaine Ql (U) Negative Normal Negative [facility] Comment on above: Performed By: #### L [id number] ####[facility] ([facility])[address] [place] [address] METHADONE (PRESENCE) IN URINE BY SCREEN METHOD Normal [facility] Comment on above: Result Comment: Meth adone being sent out. Results to follow. Performed By: #### L [id number] ####[facility] ([facility])[address] [place] [address] OPIATES (PRESENCE) IN URINE BY SCREEN METHOD Negative Normal Negative [facility] Comment on above: Performed By: #### L [id number] ####[facility] ([facility])[address] [place] [address] PHENCYCLIDINE PRESENCE IN URINE BY SCREEN METHOD Negative Normal Negative [facility] Comment on above: Performed By: #### L [id number] ####[facility] ([facility])[address] [place] [address] Propoxyphene Screen Ql (U) Negative Normal Negative [facility] Comment on above: Performed By: #### L [id number] ####[facility] ([facility])[address] [place] [address] TRICYCLIC ANTIDEPRESSANTS (PRESENCE) IN URINE Negative Normal Negative [facility] Comment on above: Performed By: #### L [id number] ####[facility] ([facility])[address] [place] [address] TYPE AND SCREENon 04-09-2023 AB SCREEN Negative Normal [facility] Comment on above: Performed By: #### L [id number] ####[facility] BLOOD B[facility], ABO group Nom (Bld) O Normal [facility] Comment on above: Performed By: #### L [id number] ####[facility]OD [facility], RH TYPE IN BLOOD Positive Normal [facility] Comment on above: Performed By: #### L [id number] ####[facility]OD [facility], URINALYSISon 04-09-2023 BILIRUBIN, TOTAL PRESENCE IN URINE Negative Normal Negative [facility] Comment on above: Performed By: #### L [id number] ####[facility] (BEAKER)[address] [place] [address] Clarity (U) Clear Normal Clear [facility] Comment on above: Performed By: #### L [id number] ####[facility] (BEAKER)[address] [place] [address] Color (U) Yellow Normal Yellow [facility] Comment on above: Performed By: #### L [id number] ####[facility] (BEAKER)[address] [place] [address] Glucose (U) [Mass/Vol] Negative Normal Negative [facility] Comment on above: Performed By: #### L [id number] ####[facility] (BEAKER)[address] [place] [address] HEMOGLOBIN PRESENCE IN URINE Small Abnormal Negative [facility] Comment on above: Performed By: #### L [id number] ####[facility] (BEAKER)[address] [place] [address] Ketones Ql (U) Negative Normal Negative [facility] Comment on above: Performed By: #### L [id number] ####[facility] (BEAKER)[address] [place] [address] LEUKOCYTE ESTERASE PRESENCE IN URINE BY TEST STRIP Negative Normal Negative [facility] Comment on above: Performed By: #### L [id number] ####[facility] (BEAKER)[address] [place] [address] NITRITE PRESENCE IN URINE Negative Normal Negative [facility] Comment on above: Performed By: #### L [id number] ####[facility] ([facility])[address] [place] [address] pH (U) 6.0 [pH] Normal 5.0-8.0 [facility] Comment on above: Performed By: #### L [id number] ####[facility] ([facility])[address] [place] [address] Protein (U) [Mass/Vol] Negative Normal Negative [facility] Comment on above: Performed By: #### L [id number] ####[facility] ([facility])[address] [place] [address] Specific gravity (U) [Rel density] 1.012 Low 1.015-1.020 [facility] Comment on above: Performed By: #### L [id number] ####[facility] ([facility])[address] [place] [address] URINALYSIS MICROSCOPICon CASTS IN URINE Normal [facility] Comment on above: Performed By: #### L [id number] ####[facility] ([facility])[address] [place] [address] CRYSTALS IN URINE Normal [facility] Comment on above: Performed By: #### L [id number] ####[facility] ([facility])[address] [place] [address] RBC (#/HPF) IN URINE SEDIMENT 3-5 Abnormal None Seen [facility] Comment on above: Performed By: #### L [id number] ####[facility] ([facility])[address] [place] [address] SQUAMOUS EPITHELIAL CELLS (#/HPF) IN URINE SEDIMENT None Seen Normal None Seen, Occasional [facility] Comment on above: Performed By: #### L [id number] ####[facility] (BEAKER)[address] [place] [address] WBC (LEUKOCYTE) (#/HPF) IN URINE SEDIMENT None Seen Normal None Seen [facility] Comment on above: Performed By: #### L [id number] ####[facility] ([facility])[address] [place] [address] Documentationon 04-01-2023 Documentation Normal [facility] 30on 03-23-2023 30 Normal [facility] 30 Normal [facility] 30 Normal [facility] ANTI-XA (HEPARIN LEVEL)on HEPARIN UNFRACTIONATED (U/ML) IN PPP BY CHROMOGENIC METHOD <0.10 Invalid Interpretation Code 0.3-0.7 [facility] Comment on above: Order Comment: Check anti-Xa level every 6 hours while on heparin infusion, or per protocol. Result Comment: [place] roxaban and Apixaban will interfere with the anti Xa assay used to monitor UFH and LMWH. Performed By: #### L [id number] ####[facility] ([facility])[address] [place] [address] BASIC METABOLIC PANELon Anion gap [Moles/Vol] 11 mmol/L Normal 7-20 [facility] Comment on above: Performed By: #### L [id number] ####[facility] ([facility])[address] [place] [address] Calcium [Mass/Vol] 9.1 mg/dL Normal 8.6-10.3 [facility] Comment on above: Performed By: #### L [id number] ####[facility] ([facility])[address] [place] [address] Chloride [Moles/Vol] 107 mmol/L Normal 98-107 [facility] Comment on above: Performed By: #### L [id number] ####[facility] ([facility])[address] [place] [address] CO2 [Moles/Vol] 23 mmol/L Normal 21-31 [facility] Comment on above: Performed By: #### L [id number] ####[facility] ([facility])[address] [place] [address] Creatinine [Mass/Vol] 0.85 mg/dL Normal 0.70-1.30 [facility] Comment on above: Performed By: #### L [id number] ####[facility] ([facility])[address] [place] [address] GLOMERULAR FILTRATION RATE ML/MIN/1.73 SQ M.PREDICTED 94.1 mL/min/1.73m*2 Normal >60.0 [facility] Comment on above: Result Comment: [facility]???s estimated glomerular filtration rate (eGFR) will [...] of individuals. Performed By: #### L [id number] ####[facility] ([facility])[address] [place] [address] Glucose [Mass/Vol] 103 mg/dL High 70-100 [facility] Comment on above: Performed By: #### L [id number] ####[facility] ([facility])[address] [place] [address] Potassium [Moles/Vol] 3.8 mmol/L Normal 3.5-5.1 [facility] Comment on above: Performed By: #### L [id number] ####[facility] ([facility])[address] [place] [address] Sodium [Moles/Vol] 137 mmol/L Normal 136-145 [facility] Comment on above: Performed By: #### L [id number] ####[facility] ([facility])[address] [place] [address] Urea nitrogen [Mass/Vol] 12 mg/dL Normal 7-25 [facility] Comment on above: Performed By: #### L [id number] ####[facility] ([facility])[address] [place] [address] UREA NITROGEN/CREATININ E (MASS RATIO) IN SER/PLAS 14.1 Normal [facility] Comment on above: Performed By: #### L [id number] ####[facility] ([facility])[address] [place] [address] CBCon 03-23-2023 Erythrocyte distribution width (RBC) [Ratio] 13.0 % Normal 11.5-15.0 [facility] Comment on above: Performed By: #### L [id number] ####[facility] ([facility])[address] [place] [address] ERYTHROCYTE MEAN CORPUSCULAR HEMOGLOBIN CONCENTRATION (G/DL) BY AUTOMATED 34.5 g/dL Normal 32.0-35.0 [facility] Comment on above: Performed By: #### L [id number] ####[facility] ([facility])[address] [place] [address] Hematocrit (Bld) [Volume fraction] 41.4 % Normal 39.0-55.0 [facility] Comment on above: Performed By: #### L [id number] ####[facility] ([facility])[address] [place] [address] Hemoglobin (Bld) [Mass/Vol] 14.3 g/dL Normal 13.0-17.0 [facility] Comment on above: Performed By: #### L [id number] ####[facility] ([facility])[address] [place] [address] MCH (RBC) [Entitic mass] 30.4 pg Normal 27.0-33.0 [facility] Comment on above: Performed By: #### L [id number] ####[facility] ([facility])[address] [place] [address] MCV (RBC) [Entitic vol] 87.9 fL Normal 82.0-98.0 [facility] Comment on above: Performed By: #### L [id number] ####[facility] ([facility])[address] [place] [address] PLATELETS (10*3/UL) IN BLOOD AUTOMATED COUNT 243 10*3/uL Normal 150-400 [facility] Comment on above: Performed By: #### L [id number] ####[facility] ([facility])[address] [place] [address] RBC (Bld) [#/Vol] 4.71 10*6/uL Normal 4.20-5.70 [facility] Comment on above: Performed By: #### L [id number] ####[facility] ([facility])[address] [place] [address] WBC (Bld) [#/Vol] 6.84 10*3/uL Normal 4.00-10.60 [facility] Comment on above: Performed By: #### L [id number] ####[facility] ([facility])[address] [place] [address] CT HEAD WO IV CONTRASTon CT HEAD WO IV CONTRAST Normal [facility] CTA CHEST W AND/OR WO IV CON TRASTon 03-23-2023 CTA CHEST W AND/OR WO IV CONTRAST Normal [facility] DSon 03-23-2023 DS Normal [facility] 30on 03-22-2023 30 Normal [facility] 30 Normal [facility] ANESon 03-22-2023 ANES Normal [facility] APTTon 03-22-2023 ACTIVATED PARTIAL THROMBOPLASTIN TIME IN PPP BY COAGULATION ASSAY 36.2 Seconds High 25.0-35.0 [facility] Comment on above: Order Comment: Basel ine aPTT before initiating heparin infusion. Result Comment: Clin ical significance of the APTT is questionable in the presence of heparin. Performed By: #### L [id number] ####[facility] ([facility])[address] [place] [address] BASIC METABOLIC PANELon 10- Anion gap [Moles/Vol] 9 mmol/L Normal 7-20 [facility] Comment on above: Performed By: #### L [id number] ####[facility] ([facility])[address] [place] [address] Calcium [Mass/Vol] 8.9 mg/dL Normal 8.6-10.3 [facility] Comment on above: Performed By: #### L [id number] ####[facility] ([facility])[address] [place] [address] Chloride [Moles/Vol] 111 mmol/L High 98-107 [facility] Comment on above: Performed By: #### L [id number] ####[facility] ([facility])[address] [place] [address] CO2 [Moles/Vol] 22 mmol/L Normal 21-31 [facility] Comment on above: Performed By: #### L [id number] ####[facility] ([facility])[address] [place] [address] Creatinine [Mass/Vol] 0.79 mg/dL Normal 0.70-1.30 [facility] Comment on above: Performed By: #### L [id number] ####[facility] ([facility])[address] [place] [address] GLOMERULAR FILTRATION RATE ML/MIN/1.73 SQ M.PREDICTED 96.2 mL/min/1.73m*2 Normal >60.0 [facility] Comment on above: Result Comment: [facility]???s estimated glomerular filtration rate (eGFR) will [...] of individuals. Performed By: #### L [id number] ####[facility] ([facility])[address] [place] [address] Glucose [Mass/Vol] 112 mg/dL High 70-100 [facility] Comment on above: Performed By: #### L [id number] ####[facility] (BEAKER)[address] [place] [address] Potassium [Moles/Vol] 3.9 mmol/L Normal 3.5-5.1 [facility] Comment on above: Performed By: #### L [id number] ####[facility] (BEAKER)[address] [place] [address] Sodium [Moles/Vol] 138 mmol/L Normal 136-145 [facility] Comment on above: Performed By: #### L [id number] ####[facility] (BEAKER)[address] [place] [address] Urea nitrogen [Mass/Vol] 12 mg/dL Normal 7-25 [facility] Comment on above: Performed By: #### L [id number] ####[facility] (BEAKER)[address] [place] [address] UREA NITROGEN/CREATININ E (MASS RATIO) IN SER/PLAS 15.2 Normal [facility] Comment on above: Performed By: #### L [id number] ####[facility] (BEAKER)[address] [place] [address] CBCon 03-22-2023 Erythrocyte distribution width (RBC) [Ratio] 13.2 % Normal 11.5-15.0 [facility] Comment on above: Performed By: #### L [id number] ####[facility] (BEAKER)[address] [place] [address] ERYTHROCYTE MEAN CORPUSCULAR HEMOGLOBIN CONCENTRATION (G/DL) BY AUTOMATED 33.7 g/dL Normal 32.0-35.0 [facility] Comment on above: Performed By: #### L [id number] ####[facility] (BEAKER)[address] [place] [address] Hematocrit (Bld) [Volume fraction] 40.3 % Normal 39.0-55.0 [facility] Comment on above: Performed By: #### L [id number] ####[facility] (BEAKER)[address] [place] [address] Hemoglobin (Bld) [Mass/Vol] 13.6 g/dL Normal 13.0-17.0 [facility] Comment on above: Performed By: #### L [id number] ####[facility] ([facility])[address] [place] [address] MCH (RBC) [Entitic mass] 30.5 pg Normal 27.0-33.0 [facility] Comment on above: Performed By: #### L [id number] ####[facility] ([facility])[address] [place] [address] MCV (RBC) [Entitic vol] 90.4 fL Normal 82.0-98.0 [facility] Comment on above: Performed By: #### L [id number] ####[facility] ([facility])[address] [place] [address] PLATELETS (10*3/UL) IN BLOOD AUTOMATED COUNT 241 10*3/uL Normal 150-400 [facility] Comment on above: Performed By: #### L [id number] ####[facility] ([facility])[address] [place] [address] RBC (Bld) [#/Vol] 4.46 10*6/uL Normal 4.20-5.70 [facility] Comment on above: Performed By: #### L [id number] ####[facility] ([facility])[address] [place] [address] WBC (Bld) [#/Vol] 6.03 10*3/uL Normal 4.00-10.60 [facility] Comment on above: Performed By: #### L [id number] ####[facility] ([facility])[address] [place] [address] CONSULTon 03-22-2023 CONSULT Normal [facility] CONSULT Normal [facility] CT CHEST WO IV CONTRASTon CT CHEST WO IV CONTRAST Normal [facility] HEMOGLOBIN A1Con 03-22-2023 Glucose [Mass/Vol] 126 mg/dL Normal [facility] Comment on above: Performed By: #### L [id number] ####[facility] ([facility])[address] [place] [address] HbA1c (Bld) [Mass fraction] 6.0 % Normal 4.0-6.0 [facility] Comment on above: Performed By: #### L [id number] ####[facility] ([facility])[address] [place] [address] HPon 03-22-2023 HP H&P reviewed. The laurie putnam was examined and there are no changes to the H&P. Will proceed with coronary angiogram for chest pain and elevated high sensitivity troponin. Normal [facility] LIPID PANELon 03-22-2023 CHOL/HDL 4.9 mg/dL Normal [facility] Comment on above: Performed By: #### L [id number] ####[facility] ([facility])[address] [place] [address] Cholesterol [Mass/Vol] 138 mg/dL Normal 120-200 [facility] Comment on above: Performed By: #### L [id number] ####[facility] ([facility])[address] [place] [address] Magnesium [Mass/Vol] 107 mg/dL Normal 40-149 [facility] Comment on above: Result Comment: TRIG LYCERIDE REFERENCE RANGE:20 YEARS AND OLDER CARDIOVASCULAR RISKLESS THAN 150 mg/dL LOW [id number] TO 199 mg/dL BORDERLINE [id number] mg/dL AND GREATER HIGH RISK Performed By: #### L [id number] ####[facility] ([facility])[address] [place] [address] Magnesium [Mass/Vol] 89 mg/dL Normal 0-160 [facility] Comment on above: Performed By: #### L [id number] ####[facility] ([facility])[address] [place] [address] Magnesium [Mass/Vol] 28 mg/dL Normal 23-92 [facility] Comment on above: Performed By: #### L [id number] ####[facility] ([facility])[address] [place] [address] NON HDL CHOL. (LDL+VLDL) 110 Normal [facility] Comment on above: Performed By: #### L [id number] ####[facility] ([facility])[address] [place] [address] TOTAL VLDL-C 21 mg/dL Normal 0-40 [facility] Comment on above: Performed By: #### L [id number] ####[facility] ([facility])[address] [place] [address] MRSA/MSSA DNA NASALon 2022 MRSA DNA Negative Normal Negative [facility] Comment on above: Order Comment: Testi [...] preclude nasal colonization. Performed By: #### L [id number] ####[facility] ([facility])[address] [place] [address] MSSA DNA Negative Normal Negative [facility] Comment on above: Order Comment: Testi [...] preclude nasal colonization. Performed By: #### L [id number] ####[facility] ([facility])[address] [place] [address] TROPONIN Ion 03-22-2023 Troponin I.cardiac [Mass/Vol] 0.03 ng/mL Normal 0.00-0.04 [facility] Comment on above: Performed By: #### L [id number] ####[facility] ([facility])[address] [place] [address] Troponin I.cardiac [Mass/Vol] 0.04 ng/mL Normal 0.00-0.04 [facility] Comment on above: Performed By: #### L [id number] ####[facility] ([facility])[address] [place] [address] TSH3 REFLEX TO FT4on 023 THYROTROPIN (MIU/L) IN SER/PLAS BY DETECTION LIMIT <= 0.05 MIU/L 2.07 mIU/L Normal 0.34-5.60 [facility] Comment on above: Performed By: #### L [id number] ####[facility] ([facility])[address] [place] [address] URINALYSISon 03-22-2023 BILIRUBIN, TOTAL PRESENCE IN URINE Negative Normal Negative [facility] Comment on above: Performed By: #### L [id number] ####[facility] ([facility])[address] [place] [address] Clarity (U) Clear Normal Clear [facility] Comment on above: Performed By: #### L [id number] ####[facility] ([facility])[address] [place] [address] Color (U) Yellow Normal Yellow [facility] Comment on above: Performed By: #### L [id number] ####[facility] ([facility])[address] [place] [address] Glucose (U) [Mass/Vol] Negative Normal Negative [facility] Comment on above: Performed By: #### L [id number] ####[facility] ([facility])[address] [place] [address] HEMOGLOBIN PRESENCE IN URINE Small Abnormal Negative [facility] Comment on above: Performed By: #### L [id number] ####[facility] ([facility])[address] [place] [address] Ketones Ql (U) Negative Normal Negative [facility] Comment on above: Performed By: #### L [id number] ####[facility] ([facility])[address] [place] [address] LEUKOCYTE ESTERASE PRESENCE IN URINE BY TEST STRIP Negative Normal Negative [facility] Comment on above: Performed By: #### L [id number] ####[facility] ([facility])[address] [place] [address] NITRITE PRESENCE IN URINE Negative Normal Negative [facility] Comment on above: Performed By: #### L [id number] ####[facility] ([facility])[address] [place] [address] pH (U) 6.0 [pH] Normal 5.0-8.0 [facility] Comment on above: Performed By: #### L [id number] ####[facility] ([facility])[address] [place], [place] [address] Protein (U) [Mass/Vol] Negative Normal Negative [facility] Comment on above: Performed By: #### L [id number] ####[facility] ([facility])[address], [place] [address] Specific gravity (U) [Rel density] 1.049 High 1.015-1.020 [facility] Comment on above: Performed By: #### L [id number] ####[facility] ([facility])[address] [place] [address] URINALYSIS MICROSCOPICon CASTS IN URINE Normal [facility] Comment on above: Performed By: #### L [id number] ####[facility] ([facility])[address] [place] [address] CRYSTALS IN URINE Normal [facility] Comment on above: Performed By: #### L [id number] ####[facility] ([facility])[address] [place] [address] RBC (#/HPF) IN URINE SEDIMENT 6-10 Abnormal None Seen [facility] Comment on above: Performed By: #### L [id number] ####[facility] ([facility])[address] [place] [address] SQUAMOUS EPITHELIAL CELLS (#/HPF) IN URINE SEDIMENT Few Abnormal None Seen, Occasional [facility] Comment on above: Performed By: #### L [id number] ####[facility] ([facility])[address] [place] [address] WBC (LEUKOCYTE) (#/HPF) IN URINE SEDIMENT None Seen Normal None Seen [facility] Comment on above: Performed By: #### L [id number] ####[facility] ([facility])[address] [place] [address] 30on 03-21-2023 30 Normal [facility] D-DIMER, QUANTITATIVEon 10-0 FIBRIN D-DIMER (UG/L FEU) IN PLATELET POOR PLASMA 0.36 mcg/mL FEU Normal 0.27-0.49 [facility] Comment on above: Order Comment: D-Dim er values of less than 0.50 ug/ml (FEU) are considered to be a negative predictor of thrombosis. However, the D-Dimer result should be used in conjunction with pretest probability and should not be used alone to diagnose a thrombotic event. Performed By: #### L [id number] ####[facility] ([facility])[address] [place] [address] HPon 03-21-2023 HP Normal [facility] Lab Reportson 02-12-2023 Lab Reports [id number]#[id number]:127 Normal [facility] Screenson 01-30-2023 Screens [id number]#[id number]:127 Normal [facility] Ambulatory Visit Summaryon 0 01-29-2023 Ambulatory Visit Summary GUI ORTIZ SR :1955 Visit Date:01/29/2023 Ambulatory Visit Instructions Your Diagnosis 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 [address] Additional Instructions: w/PSA Patient Education Documentation recorded [...] Protein Urine Dipstick: Negative (01/29/23 14:37:00) Specific [place] Urine Dipstick: 1.025 (01/29/23 14:37:00) Urine Appearance Urine Dipstick: Clear (01/29/23 14:37:00) Urine Color Urine Dipstick: Yellow (01/29/23 14:37:00) pH Urine Dips (more content not included)... Normal [facility] Comment on above: Result Comment: Elec tronically Signed By: ELIZABETH LINDSAY PA-C\ángela\Date and Time Signed: 01/29/23 16:19 EDT\.br\Electronically Co-Signed [...] Prostamegaly. Coronary artery calcifications. Electronically authenticated by: GACRIA GALLEGOS Date: 2022-08-04 17:12 Normal [facility] CT LUNG CANCER SCREENINGon [...] DAVID EL Date: 2022-07-26 07:42 Normal [facility] INSULINon 07-26-2022 Insulin 4.0 uIU/mL Normal 2.6-24.9 [facility] Comment on above: Performed By: #### I NSULIN #### [facility] [address] [address] [address] Rehana Martinez CBC AUTO DIFFon 07-25-2022 BASO # 0.0 103/ul Normal 0.0-0.1 [facility] Comment on above: Performed By: #### C BC #### [facility] [address] [address] [address] Rehana Martinez Basophils/100 WBC (Bld) 0.2 % Normal 0.2-2.0 [facility] Comment on above: Performed By: #### C BC #### [facility] [address] [address] [address] Rehana Martinez EO # 0.1 103/ul Normal 0.0-0.7 [facility] Comment on above: Performed By: #### C BC #### [facility] [address] [place] [address] Dr. Rehana Martinez Eosinophils/100 WBC (Bld) 0.5 % Critically low 0.9-7.0 [facility] Comment on above: Performed By: #### C BC #### [facility] [address] [place] [address] Dr. Rehana Martinez Erythrocyte distribution width (RBC) [Ratio] 13.6 % Normal 11.0-15.0 [facility] Comment on above: Performed By: #### C BC #### [facility] [address] [place] [address] Dr. Rehana Martinez Hematocrit (Bld) [Volume fraction] 45.6 % Normal 42.0-54.0 [facility] Comment on above: Performed By: #### C BC #### [facility] [address] [place] [address] Dr. Rehana Martinez Hemoglobin (Bld) [Mass/Vol] 15.1 g/dL Normal 14.0-18.0 [facility] Comment on above: Performed By: #### C BC #### [facility] [address] [place] [address] Dr. Rehana Martinez IG # 0.04 10e3/ul Critically high 0.00-0.03 [facility] Comment on above: Performed By: #### C BC #### [facility] [address] [place] [address] Dr. Rehana Martinez IG % 0.4 % Normal 0.0-0.5 [facility] Comment on above: Performed By: #### C BC #### [facility] [address] [place] [address] Dr. Rehana Martinez LYMPH # 1.7 103/ul Normal 1.2-3.8 [facility] Comment on above: Performed By: #### C BC #### [facility] [address] [place] [address] Dr. Rehana Martinez Lymphocytes/100 WBC (Bld) 17.9 % Critically low 20.5-60.0 [facility] Comment on above: Performed By: #### C BC #### [facility] [address] [place] [address] Dr. Rehana Martinez MANUAL DIFF REQ NO Normal [facility] Comment on above: Performed By: #### C BC #### [facility] [address] [place] [address] Dr. Rehana Martinez MCH (RBC) [Entitic mass] 30.8 pg Normal 25.9-34.0 [facility] Comment on above: Performed By: #### C BC #### [facility] [address] [place] [address] Dr. Rehana Martinez MCHC (RBC) [Mass/Vol] 33.1 g/dL Normal 29.9-35.2 [facility] Comment on above: Performed By: #### C BC #### [facility] [address] [place] [address] Dr. Rehana Martinez MCV (RBC) [Entitic vol] 92.9 fL Normal 80.0-94.0 [facility] Comment on above: Performed By: #### C BC #### [facility] [address] [place] [address] Dr. Rehana Martinez MONO # 1.1 103/ul Critically high 0.3-0.8 [facility] Comment on above: Performed By: #### C BC #### [facility] [address] [place] [address] Dr. Rehana Martinez Monocytes/100 WBC (Bld) 11.2 % Normal 1.7-12.0 [facility] Comment on above: Performed By: #### C BC #### [facility] [address] [place] [address] Dr. Rehana Martinez NEUT # 6.7 103/ul Critically high 1.4-6.5 [facility] Comment on above: Performed By: #### C BC #### [facility] [address] [address] [address] Rehana Martinez Neutrophils/100 WBC (Bld) 69.8 % Normal 43.0-75.0 [facility] Comment on above: Performed By: #### C BC #### [facility] [address] [address] [address] Rehana Martinez Platelet mean volume (Bld) [Entitic vol] 8.7 fL Critically low 9.5-13.5 [facility] Comment on above: Performed By: #### C BC #### [facility] [address] [address] [address] Rehana Martinez PLT 226 103/ul Normal 150-450 [facility] Comment on above: Performed By: #### C BC #### [facility] [address] [place] [address] Dr. Rehana Martinez RBC 4.91 106/ul Normal 4.70-6.10 [facility] Comment on above: Performed By: #### C BC #### [facility] [address] [address] [address] Rehana Martinez WBC 9.6 103/ul Normal 4.0-11.0 [facility] Comment on above: Performed By: #### C BC #### [facility] [address] [address] [address] Rehana Martinez FREE THYROXINE INDEX T7on FTI 3.37 Normal 1.30-4.50 [facility] Comment on above: Performed By: #### L IPID, CMP, TSH, URIC, T7 ####[facility] [address] [place], [place] [address]PyDr. Rehana Martinez T3U 37.0 % Normal 33.0-40.0 [facility] Comment on above: Performed By: #### L IPID, CMP, TSH, URIC, T7 ####[facility] [address] [place], [place] [address]JsDr. Rehana Martinez T4 [Mass/Vol] 9.10 ug/dL Normal 4.50-12.10 [facility] Comment on above: Performed By: #### L IPID, CMP, TSH, URIC, T7 ####[facility] [address] [place], [place] [address]JjDr. Rehana Martinez GLYCOHEMOGLOBIN A1Con 2022 ADA RECOMMENDATION SEE BELOW Normal [facility] Comment on above: Result Comment: ADA RECOMMENDED LIMIT 4.0 - 6.0 ADA THERAPEUTIC TARGET < 7.0 ACTION SUGGESTED > 7.0 Performed By: #### A 1C #### [facility] [address] [address] [address] Rehana Martinez Glucose [Mass/Vol] 128 mg/dL Normal [facility] Comment on above: Performed By: #### A 1C #### [facility] [address] [address] [address] Rehana Martinez HbA1c (Bld) [Mass fraction] 6.1 % Normal 4.5-6.2 [facility] Comment on above: Performed By: #### A 1C #### [facility] [address] [address] [address] Rehana Martinez LIPID PROFILEon 07-25-2022 CHOL-HDL RATIO NORM SEE BELOW Normal [facility] Comment on above: Result Comment: 3.3 - 4.4 LOW RISK 4.4 - 7.1 AVERAGE RISK 7.1 - 11.0 MODERATE RISK >11.0 HIGH RISK Performed By: #### L IPID, CMP, TSH, URIC, T7 ####[facility] [address] [address]DrStarr Martinez Cholesterol [Mass/Vol] 137 mg/dL Normal <=200 [facility] Comment on above: Performed By: #### L IPID, CMP, TSH, URIC, T7 ####[facility] [address] [address]DrStarr Martinez Cholesterol in HDL [Mass/Vol] 44 mg/dL Normal 40-60 [facility] Comment on above: Performed By: #### L IPID, CMP, TSH, URIC, T7 ####[facility] [address] [address]DrStarr Martinez Cholesterol in LDL [Mass/Vol] 75.6 mg/dL Normal [facility] Comment on above: Performed By: #### L IPID, CMP, TSH, URIC, T7 ####[facility] [address] [address]Dr. Rehana Martinez Cholesterol.total/ Cholesterol in HDL [Mass ratio] 3.1 {ratio} Normal [facility] Comment on above: Performed By: #### L IPID, CMP, TSH, URIC, T7 ####[facility] [address] [address]Dr. Rehana Martinez HDL NORMAL > or = 60 mg/dl - LO W CARDIOVASCULAR RISK <40 mg/dl - HIGH CARDIOVASCULAR RISK Normal [facility] Comment on above: Performed By: #### L IPID, CMP, TSH, URIC, T7 ####[facility] [address] [place] [address]Dr. Rehana Martinez LDL CALC NORMAL SEE BELOW Normal [facility] Comment on above: Result Comment: <100 mg/dl OPTIMAL 100 - 129 mg/dl NEAR OR ABOVE OPTIMAL 130 - 159 mg/dl BORDERLINE HIGH 160 - 189 mg/dl HIGH >190 mg/dl VERY HIGH Performed By: #### L IPID, CMP, TSH, URIC, T7 ####[facility] [address] [place] [address]Dr. Rehana Martinez Triglyceride [Mass/Vol] 87 mg/dL Normal <=150 [facility] Comment on above: Performed By: #### L IPID, CMP, TSH, URIC, T7 ####[facility] [address] [place] [address] [address]Dr. Rehana Martinez VLDL CALC 17.4 mg/dL Normal [facility] Comment on above: Performed By: #### L IPID, CMP, TSH, URIC, T7 ####[facility] [address] [place] [address]Dr. Rehana Martinez PROF 14(COMP METB)on 023 Albumin [Mass/Vol] 3.3 g/dL Critically low 3.4-5.0 [facility] Comment on above: Performed By: #### L IPID, CMP, TSH, URIC, T7 ####[facility] [address] [place] [address] [address]Dr. Rehana Martinez Albumin/Globulin [Mass ratio] 0.9 {ratio} Normal [facility] Comment on above: Performed By: #### L IPID, CMP, TSH, URIC, T7 ####[facility] [address] [place] [address]Dr. Rehana Martinez ALP [Catalytic activity/Vol] 105 U/L Normal 46-116 [facility] Comment on above: Performed By: #### L IPID, CMP, TSH, URIC, T7 ####[facility] [address] [place] [address]Dr. Floriirene Martinez ALT [Catalytic activity/Vol] 16 U/L Normal 16-63 [facility] Comment on above: Performed By: #### L IPID, CMP, TSH, URIC, T7 ####[facility] [address] [place], [place] [address]Dr. Rehana Martinez Anion gap [Moles/Vol] 11.8 mmol/L Normal [facility] Comment on above: Performed By: #### L IPID, CMP, TSH, URIC, T7 ####[facility] [address] [place], [place] [address]Dr. Floriirene Martinez AST [Catalytic activity/Vol] 16 U/L Normal 15-37 [facility] Comment on above: Performed By: #### L IPID, CMP, TSH, URIC, T7 ####[facility] [address] [place], [place] [address]Dr. Rehana Martinez Bilirubin [Mass/Vol] 0.6 mg/dL Normal 0.2-1.0 [facility] Comment on above: Performed By: #### L IPID, CMP, TSH, URIC, T7 ####[facility] [address] [place], [place] [address]Dr. Rehana Martinez Calcium [Mass/Vol] 9.1 mg/dL Normal 8.5-10.1 [facility] Comment on above: Performed By: #### L IPID, CMP, TSH, URIC, T7 ####[facility] [address] [address]Dr. Rehana Martinez Chloride [Moles/Vol] 103 mmol/L Normal 98-107 [facility] Comment on above: Performed By: #### L IPID, CMP, TSH, URIC, T7 ####[facility] [address] [address]Dr. Rehana Martinez CO2 [Moles/Vol] 26.0 mmol/L Normal 21.0-32.0 [facility] Comment on above: Performed By: #### L IPID, CMP, TSH, URIC, T7 ####[facility] [address] [place], [place] [address]Dr. Floriirene Martinez Creatinine [Mass/Vol] 0.94 mg/dL Normal 0.70-1.30 [facility] Comment on above: Performed By: #### L IPID, CMP, TSH, URIC, T7 ####[facility] [address] [place], [place] [address]Dr. Floriirene Juan EGFR-AF SINGAPOREAN >60 Normal >=60 [facility] Comment on above: Performed By: #### L IPID, CMP, TSH, URIC, T7 ####[facility] [address] [place], [place] [address]Dr. Rehana Juan EGFR-NON AF SINGAPOREAN >60 Normal >=60 [facility] Comment on above: Performed By: #### L IPID, CMP, TSH, URIC, T7 ####[facility] [address] [place], [place] [address]Dr. Floriirene Juan Globulin (S) [Mass/Vol] 3.8 g/dL Normal [facility] Comment on above: Performed By: #### L IPID, CMP, TSH, URIC, T7 ####[facility] [address] [place], [place] [address]Dr. Rehana Martinez Glucose [Mass/Vol] 109 mg/dL Critically high 74-106 T [facility] Comment on above: Performed By: #### L IPID, CMP, TSH, URIC, T7 ####[facility] [address] [address]Dr. Rehana Martinez Potassium [Moles/Vol] 3.8 mmol/L Normal 3.5-5.1 [facility] Comment on above: Performed By: #### L IPID, CMP, TSH, URIC, T7 ####[facility] [address] [address]Dr. Rehana Martinez Protein [Mass/Vol] 7.1 g/dL Normal 6.4-8.2 [facility] Comment on above: Performed By: #### L IPID, CMP, TSH, URIC, T7 ####[facility] [address] [address]Dr. Rehana Martinez Sodium [Moles/Vol] 137 mmol/L Normal 136-145 [facility] Comment on above: Performed By: #### L IPID, CMP, TSH, URIC, T7 ####[facility] [address] [address]Dr. Rehana Martinez Urea nitrogen [Mass/Vol] 17.0 mg/dL Normal 7.0-18.0 [facility] Comment on above: Performed By: #### L IPID, CMP, TSH, URIC, T7 ####[facility] [address] [address]Dr. Rehana Martinez Urea nitrogen/Creatinin e [Mass ratio] 18.1 mg/mg Normal [facility] Comment on above: Performed By: #### L IPID, CMP, TSH, URIC, T7 ####[facility] [address] [address]Dr. Rehana Martinez TSHon 07-25-2022 TSH 1.619 uIU/mL Normal 0.358-3.740 [facility] Comment on above: Performed By: #### L IPID, CMP, TSH, URIC, T7 ####[facility] [address] [address]Dr. Rehana Martinez URIC ACID SERUMon 07-25-2022 Urate [Mass/Vol] 5.7 mg/dL Normal 3.5-7.2 [facility] Comment on above: Performed By: #### L IPID, CMP, TSH, URIC, T7 #### [facility] [address] [place], [place] [address] Dr. Rehana Martinez UroVys[facility] Fish and Urine Cyt o ([facility])on 04-06-2022 UVFISH & UC Diagnosis Info Invalid Interpretation Code [facility] Comment on above: Result Comment: [...] on: 03/29/2022 10:51:08 Performed By: #### 1 [id number] ####[facility] [address] [id number] Patient Educationon 03-27-20 Patient Education Urology Benign [...] Follow these instructions at home: ? Take qbzd-gsd-abpanyn and prescription medicines only as told by [...] You d (more content not included)... Normal [facility] Urology Office/Clinic Noteon 03-27-2022 Urology [...] [facility] [address], [place] [address]- Additional Instructions: 6 mos PSA free & [...] Social Hist (more content not included)... Normal [facility] Comment on above: Result Comment: Elec tronically Signed By: Casper RAUSCH MD\.br\Date and Time Signed: 03/27/22 10:34 EDT\.br\Electronically Co-Signed By: Inga Woodruff\.br\Date and Time Co-Signed: 03/27/22 10:32 EDT Coding Summary.on 03-22-2022 Coding Summary. CD:[id number] Gh0bWw+ PGhlYWQ+SV7LFBTpD06phFQueJ6 ZC5lXPS3VFRBOWGGFQG6HWM6ppZ G3NFhgZ8JuvrIq WeotnXGhVC20UOi3NCL9sWayTDt kzH3joFRfL8p1SrEjGX80eL13GU boNSJxEfP6VjFqahexvDRx H7ujXcPqfQGmFkp+PHRhYmxlIHd vSXVcVIfoJRQaWhYesMxqKC5eJh 9yZGVyLWNvbGxhcHNlOiBj p1pyEVMvSVyyZQ3yaBbtD7AnmOK 4QMQvf9z4Xo99gRE+YMHgDHU2eE xbXVdsm669AuNqq6yyPAU2 xOSeVMraMZB7B48zg3R5XVPhIEI nDBK0mPW5rW7buBewojyuZ2YupC JiHdL4FZU7eNKvhJ7eoAcj aylasK8iEkk+Y18QGA6AOZQUKZ4 VLen5S1IhGcmxbHB+XZ75RBJqUT 06pPByhELsh0ommFv7YxPu HUKhRUJ1nEpcRJifn6RtTWFhL00 noMGvx5I3KKYsfSnxfELwYbIvhP L3fX9hULkfqxace7ymftub Uzpit7obto51rM43E57mQOdsORK bKTH4SUQwOYVkkMtagd1umW7rDv 8+KIuct9yuu2ilsCa8PjZh AMIvcrTgrYgvPJK3k8CsRa01E9Y brGwyo5UkCdi1cz02oPYbx7T0bL B3KIdiQIQfeQ6hBQnwMqB8 LYKtFuAbuT64zZYlXEbuAg0oxHm dqBheGP1sBOAzhvosULTvgC4wAJ KbtXDlwOnhLN2qJSShrrox r944HlKvBJB0ZPFnmOMuH2SxnI9 wTxCqPCNxFBDyM6WigLOwVShmM6 17ISnsNyY7JNLdjxCuX8Hp TPPjzKnpNgG7q5Q8Aq1Hz0Utwnm bFCI6SSqwXRLwJiR7GsMkQoF5X6 WvMrn9IKGlfUnrEO9eJ9Lr YLCgsdyolehyxSU1KLYzAOEyeU4 3fXJvQIkjPp3ey3A3f708WPEsVX XwxM62Gp4pySwxHCDurQBI iE0ddborx9bdmattWyTdRFIgLAu 8LUe7UZBazLcwLaEsMLL2YdR1ZF Q0eAFlmN4hrKdxilwwgI1x Oyc+V68dwW4vJSB2TTO2rwzrMHD ymoIqJW94DN73A5SmXlsawTQoeU U+WUYnibIugQipSF4uFbTc s5vmr3KiJJnxK9TcZBVpQNxxHsw 3WSNjKPF3tVK9jQ5gKIWsXNpgp1 T1xDA7M4VunoAfua5so0ro ZZXjCHlyC15bwHJfw5Z8GWKaxBV 6MLQfwBtqQxKcfU55Ymd+PGNvbG nud4TvKzbhw2kmx1fcwBy8 DnZuEGYceyErvVsaWPW6j4FkKz9 3P46xXNzeXHJuPLWgUWSmZLLcmE ssyv3mlP5gWf1+PGNvbCB3 eDS9zY2yGOSdSyL3HOyrO408HzV stHAgByouf6jqw0gloDx0SgZxOY YvufTwiIjtEQH8s1LhVx35 I51fXMpoHXOqXGGsPCDfVPHyjJk non9ebE8yTg3+UE3wu4mnqd19yI 48dHI+ERYvGRN6lAusGAth RHCiaH6iRVscHkA8UQHiAaYznB9 2uXAqUTcuAj0uqOkdbVomJV8dQK Tknyapt761DiCve7qwTQUg mGXuESxxASG0W38no3E0ADSrJSQ pKYY7eQN7uF1dlMjuzaguzEHlzV kefjTscNahREhrSEvfX814 IHRvcDsnPlBhdGllbnQgTmFtZTo 1N5EeJuw4PIHrrNnxLR2lwYTdLP qxMy4zvLazgVndYK9qVFVu dbetq428VvMxx1xcJRPqoPZhDUn hSNP5H43kl7P3NUZwATIsWOY7kL Y8wD8bqJekgrsmdEAjfSjz qsIxiSjdVOmjDJjgJ476ZRYydGq iTcPmviKnQRQvbHA4AS67TB34tO Wpl8M8sKA7L8NnGRGrqsrf ourxuWE7JXLtWLJlbE66Km9jpKd gEm4ePBWrNFT3GGTeeYEaT9TlzJ 7xOwPyWXCcHAZyR5DziWNu MQulA280TOxwTuV9VYCyfqLtO8U xFLSykDtsUwJ7x9M1Zk8QQ8N9DR 90QW48yAHht9G6aVT6F0Dg SQWtzardibbvoGM9VXCrDXBzuM3 0Ls2iqHtbCn6bNYOaBIM9ITNojE XkH2RjgB7bTfFnHSTpJYVc J8RhvXYdWLwaY522ZAdcKnE2VOX jpaTcW8UlUFVwuKhkDuB9e2I5Tt 5EDIv1HA37UL41vPOdz9T2 rGJ4W9QcLHTttoekqjnwhGB1KPB lWOJonP82Og5koNxtFq9mPEKsYV E9OTXadCJwW0YdhW0iTlEv PFGpYFRsW0JsvRVsNThcW254KTn xWlV7POFredLjI8HzTBLgtRrgXn Z2i5I4Zp3UFSEqOG10KCO7 gGR4DV26DB86R2IaFeaknUZsmOW +PHRhYmxlIHdpZHRoPScxMDAlJy IzrIneTB1cNk3oSKDhJCFd iOeqjZEvLxErf6xtFSKaADjdDP7 ihSmiT5PyjFM6YJSgu4g9Hd02A4 6oV5VpiJT+LDNjtXC6lVR2 pK1iUyMlBbW0SXafM629OiAzoIM vPfzoi1vur8tueEv1BlU5TNZwdc QyvQohTME7q1PxPh60X30p IHdpZHRoPSIxNSUiIHZhbGlnbj0 eqJ6fXs3+MITbiDZ7qGE9iO7uIn IhIeZ9SVrmA791SkCkbWIc Kjsfs5rdf8dafMj8MyReDZPrqtV gvMnmHUJ3q1SwOz42J7GniNlef1 VeJja7os94nLUth0Y4fEL9 C4SwTTXqsfqovUFlgLzePB6qGDI wagqeMSXruD4jNPReD5a0ZtWuXz V4DIgtA5KxfbG0NMIgnEGf ZSgjDTG7I93ni7H1YUKiWZNcANI 9rML8fR2zxZmgtiijiRIzgFzzzt SrkByyKBfkPJptB493PKHl zGuiWODvnB9yPJZonPIyiAooQU2 nPKOehftfPkCECmWcL3VtFJxKOV 4gQTwvdGQ+VFCjCHM0xRex ABrgEHCmgI0aGWOzW5s9UgLhXvV 1PEldY4FeJVVswdtfIl17aW7xPt JgRfU9RWccJ0UhumG4BVHa qCUeBVpaUCH9D62lc1B5ROMxOBM tYWN0fDN8cF0mvMjnntavcYGgcJ zedeSgwFjnAAdhEWywH895 DVDxhZhvZcY2QeIbRgS3WWM3M0C rAxj9FJVtpZrxFE5paIKaQKylSc 1zzIcglBzyNF3oOWTfyttu DLEzqJ6bWMDkbJBeoGulDU7iIDL ddynkd984VtBmFRR6YCJtkURpA8 WafB2iRfJeOZDiETFrQ5Qi mCPkNZlwF163CDgvNbK7NWFxowL xZ2BePADuxIhgGsX3f2K6Nl02DT BZZWFyczwvdGQ+PHRkIHN0 tBqlINswIWRjyI6dGTTdT5s7EsJ iEqA1NEtxN8AnWXYpthnnVj78kB 7rUzLvXhE1BAtnI1YtwmM7 YLKteQToCLyfZQU3N89we0H1DGJ cVCKhWMU2cOE2sQ3rsHhficmwsU VmdDsgdmVydGljYWwtYWxp B037KMJjoKzdEf9jxYG8Q7EqDek 3TFKavPajDX9lpHQjFOjzVh9rzG ymbUwvZS0hSJNkfzxgGEPj nY0mPDDemLZeaNbqJT9aEFVbfjz to313FkLmZBL8PSTutJWnN7XzdR 5uAuRdGNMaIBDoM2OadVBw YUxtC064BBsoHrJ5PNJomkIxO5Q eIBCxlXwgToK8y1W5Qy9VpYTcSJ YxBW12IO83TT92C8BeBroa dGFibGU+PHRhYmxlIHdpZHRoPSc kTPJrMlKaqEaaCG6cGm4cVNYzUQ KxmAhxfILmVjBdi5gnBPXa MOfzQT0snAlsA6MvsFO8RKUcl5q 5Nr62G45sN6DfiEY+JGHdxJW6tT K9uJ5uXhBcUlG1XXivM879 AbXpaGTaJngqi1xhg8wbwJq7FjC qQHZonyVcgGpbYZI9e9IfRu96M5 9sIHdpZHRoPSIyMCUiIHZh yXpkvw6okL6rBp8+KTVeaDQ4yUF 9bM2cXvBaCtJ2JUreL196KwMfdN FwIickM33kY1YeiOY+PHRy Ymp9PYVvxBmvLD0qfAVuOXicCf8 lPLU6VoCwAnCdLMvsY2LoHICevk iumoloyTU7PIPxHOVxdW38 Hv9msEleCu2yRUCbZNZ6GPFdgHF aP4XkoG3yGzHkOHVbDZOwR9JsqA WbBNdbU509SRgvQtH9DEHx aeOtA1TdVZKwzRelOfB3p5F7Ke3 AeEfpdQXsTC9rImNnKVi0X2DpIj b1QZKebJrpCN9vfTBjFKor Ek0shSnhkTtjBZ5hVYQyipphr01 4BvIgj5nvFQSdhUPtFHqxXTK8Y5 5lv6H9YUHmQKPsZXL4pDH1 iP2zrYcebjnwaKAdtOhnhhPkjCn eFNxrWKicU732VUYyxOtyKxNUCx h6E3VaApu9OBGsoFbdBJ7c aDGeARcoBd3ovOfaqKdiZC6pDAZ zjluzf204LjZeg1gaTMAkpPNfTA jwPIJ8J04hz9G5UWVhIQXu NES7qEN8cJ5wnWqyfevlbJJnrFl gurEzzCllZQxjVElxL485CSIdqZ zdSk4SCho9I2MmQyy2JMTd gJmgWH7cbRZrPYufIv3odRxqxJv eLY0zHRKlhgvqz812LaHzb2awNG WtmWNxAKviQJK9B83ie9M2 ABYgJKCeWTS0yEE6pY6riIkhfxl gbGVmdDsgdmVydGljYWwtYWxpZ2 46IHRvcDsnPlBheWVyOjwv dGQ+KF71pt17B4CpEqrxThs2TGU lISB2aAK7cG4uBVKrGUrzs1F4jM T5C3KokkGdvq2hn2hfAZGf ZTog (more content not included)... Normal [facility] Consent for Procedure/Surger yon 03-21-2022 Consent for Procedure/Surgery [id number]:127 Normal [facility] Consent for Treatmenton Consent for Treatment [id number]:127 [facility] Inpatient Patient Summaryon 03-21-2022 Inpatient Patient Summary [place] [id number] Clinical Summary Person Information Name: GUI ORTIZ SR Age: 67 Years : 1955 Sex: Male PCP: Angella Jaquez MD Marital Status: Phone: [phone] Race: White Ethnicity: or Language: Canadian Visit Id: Visit 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 / ELEVATED PSA / HEMATURIA Speciality: Acuity: Enc Type: Outpatient Med Service: Surgery Arrival: 03/21/2022 10:25:04 Discharge: Dispo Type: Address: [address] [place] [id number] Provider Notes: Diagnosis: Problems Active Asymptomatic microscopic [...] Follow up: With: Address: When: Casper RAUSCH [address] [place] [address] [facility] (1) Within 5 to 7 days With: Address: When: [place] [address] [facility] (1) Type Location Start [facility] Office Visit [facility] [place] 05/22/2022 11:00 AM 05/22/2022 11:15 AM Confirmed Patient Education Information: Normal [facility] IntraOperative Documentson 1 IntraOperative Documents [id number]:127 Normal [facility] Main OR Intraoperative Recor don 03-21-2022 Main OR Intraoperative Record IntraOp Document Type FTURO Summary Primary Physician: Casper RAUSCH MD Finalized Date/Time: 03/21/22 11:42:35 Pt. Name: GUI ORTIZ SR/Sex: 1955 Male Med Rec #: [id number] Physician: Casper RAUSCH MD Financial #: [id number] Pt. Type: O Room/Bed: / Admit/Disch: 03/21/22 [...] Usha Arevalo Role Performed Surgeon - Primary Med Surg Nurse - Primary Scrub - Primary Time In [...] / HEMATURIA Last Modified By: Mao EASON, ZAHRAAOR, Irina 03/21/22 11:18:29 Post-Care Text: The patient [...] SONIA Cavanaugh RN, Ruthann 03/21/22 11:42 Normal [facility] Main OR Preoperative Recordo n 03-21-2022 Main OR Preoperative Record Holding Area Document Type FTURO Summary Primary Physician: Casper RAUSCH MD Finalized Date/Time: 03/21/22 11:17:09 Pt. Name: GUI ORTIZ SR /Sex: 1955 Male Med Rec #: [id number] Physician: Casper RAUSCH MD Financial #: [id number] Pt. Type: O Room/Bed: / Admit/Disch: 03/21/22 [...] Complaints of Pain: No Skin Integrity Intact, Ceylon, Warm, & Dry Vitals - EU Blood Pressure 100/70 Pulse 59 bpm Respirations 16 br/min SPO2 98 % Additional CHANEL EASON Reviewed Yes Specimens Collected Last Modified By: SONIA Cavanaugh RN, Ruthann 03/21/22 11:17:07 General Comments: Temp 36.4 Temporal Finalized By: Mao EASON, Irina SCOTT Document Signatures Signed By: Adwoa Little LPN 03/21/22 10:38 SONIA Cavanaugh RN, Ruthann 03/21/22 11:17 Normal [facility] Operative Reporton 2 Operative Report [...] with antibiotic coverage, Follow up arranged. Normal [facility] Comment on above: Result Comment: Elec tronically Signed By: Casper RAUSCH MD\.br\Date and Time Signed: 03/21/22 11:28 EDT Outpatient Surgery Discharge Instructionon 03-21-2022 Outpatient Surgery Discharge Instruction [address] [address] Patient Discharge Instructions PERSON INFORMATION [...] 911 Follow up: With: Address: When: Casper [address] [place] [address] [place] [address] Business (1) Within 5 to 7 days With: Address: When: Casper RAUSCH [address] [place] [id number] [facility] (1) Type Location Start [facility] Office Visit [facility] [place] 05/22/2022 11:00 AM 05/22/2022 11:15 AM Confirmed [...] to serve you. Thank you for choosing [facility] Normal [facility] Patient Educationon 03-21-20 Patient Education Normal [facility] Fish and Urine Cyt o ([facility])on 03-21-2022 [facility] Method of Extraction Voided Normal [facility] Comment on above: Performed By: #### 1 [id number] ####[facility] [address] [place] [address] [facility] Number of Jars 1 Invalid Interpretation Code [facility] Comment on above: Performed By: #### 1 [id number] ####[facility] [address] [place] [address] [facility] Specimen Urine Normal [facility] Comment on above: Performed By: #### 1 [id number] ####[facility] [address] [place] [address] [facility] Type of Service Technical Only Normal [facility] Comment on above: Performed By: #### 1 [id number] ####[facility] [address] [place] [address] Lab Reportson 03-15-2022 Lab Reports [id number]:127 Normal [facility] PSA, FREE AND TOTAL RATIOon 03-13-2022 % Free PSA 15.5 % Normal [facility] Comment on above: Result [...] men. Performed By: #### P SAFREE #### [facility] [address] [place] [address] Dr. Rehana Martinez Prostate specific Ag [Mass/Vol] 4.9 ng/mL Critically high 0.0-4.0 [facility] Comment on above: Result Comment: Arnoldo benedict ECLIA methodology. . According to the [employer], Serum PSA should decrease and [...] disease. Performed By: #### P SAFREE #### [facility] [address] [place] [address] Dr. Rehana Martinez PSA, Free 0.76 ng/mL Normal N/A [facility] Comment on above: Result Comment: Arnoldo benedict ECLIA methodology. Performed By: #### P SAFREE #### [facility] [address] [place] [address] Dr. Rehana Martinez CREATININEon 12-14-2021 Creatinine [Mass/Vol] 1.01 mg/dL Normal 0.70-1.30 [facility] Comment on above: Performed By: #### C MAXINE #### [facility] [address] [place] [address] Dr. Rehana Martinez EGFR-AF SINGAPOREAN >60 Normal >=60 [facility] Comment on above: Performed By: #### C MAXINE #### [facility] [address] [place] [address] Dr. Rehana Martinez EGFR-NON AF SINGAPOREAN >60 Normal >=60 [facility] Comment on above: Performed By: #### C MAXINE #### [facility] [address] [place] [address] ABD/PELV W CONon [...] by: BRANDIE RUDD Date: 2021-12-14 11:36 Normal [facility] Vital Signs Date Time Vital Sign Value Performing Clinician Yunier nunez 03-27-2022 10:11-0400 Blood Pressure Location [facility] 03-27-2022 10:11-0400 Diastolic blood pressure 57 mm[Hg] [facility] 03-27-2022 10:11-0400 Heart rate 57 /min [facility] 03-27-2022 10:11-0400 Respiratory rate 16 /min [facility] 03-27-2022 10:11-0400 Systolic blood pressure 154 mm[Hg] Casper RAUSCH [facility] 12-05-2021 08:16-0400 Blood Pressure Location Monica Mondragon Jr. [facility] 12-05-2021 08:16-0400 Diastolic blood pressure 84 mm[Hg] Monica Mondragon Jr. [facility] 12-05-2021 08:16-0400 Heart rate 75 /min Monica Mondragon Jr. [facility] 12-05-2021 08:16-0400 Systolic blood pressure 118 mm[Hg] Monica Mondragon Jr. [facility] Encounters Encounter Date Encounter Type Care Provider Facility Start: 02-11-2024 ambulatory ELIZABETH Teague ty:PRICILA Self Start: 07-18-2023 End: 07-18-2023 ambulatory MAYELIN [facility] Start: 07-08-2023 Evaluation and manag ement of inpatient [facility] Start: 07-07-2023 Evaluation and manag ement of inpatient [facility] Start: 07-06-2023 Evaluation and manag ement of inpatient [facility] Start: 07-05-2023 Evaluation and manag ement of inpatient [facility] Start: 07-05-2023 End: 07-09-2023 Evaluation and management of inpatient [facility] Start: 05-16-2023 ambulatory [facility] Start: 05-14-2023 End: 05-14-2023 ambulatory VALENTINA RICK [facility] Start: 05-06-2023 Evaluation and manag ement of inpatient ELINA HOLLEY [facility] Start: 05-03-2023 End: 05-04-2023 ambulatory [facility] Start: 05-01-2023 Evaluation and manag ement of inpatient [facility] Start: 04-30-2023 Evaluation and manag ement of inpatient [facility] Start: 04-30-2023 Evaluation and manag ement of inpatient [facility] Start: 04-30-2023 Evaluation and manag ement of inpatient [facility] Start: 04-29-2023 Evaluation and manag ement of inpatient [facility] Start: 04-27-2023 Evaluation and manag ement of inpatient [facility] Start: 04-26-2023 Evaluation and manag ement of inpatient [facility] Start: 04-25-2023 Evaluation and manag ement of inpatient [facility] Start: 04-25-2023 [facility] Start: 04-24-2023 Evaluation and manag ement of inpatient [facility] Start: 04-24-2023 Evaluation and manag ement of inpatient [facility] Start: 04-23-2023 [facility]: 04-23-2023 Evaluation and manag ement of inpatient ZANDER BLEDSOE [facility] Start: 04-23-2023 End: 04-24-2023 Evaluation and management of inpatient [facility] Start: 04-23-2023 Evaluation and manag ement of inpatient KAREY SAWANT [facility] Start: 04-23-2023 Evaluation and manag ement of inpatient [facility] Start: 04-22-2023 Evaluation and manag ement of inpatient [facility] Start: 04-22-2023 Evaluation and manag ement of inpatient [facility] Start: 04-22-2023 Evaluation and manag ement of [facility] Start: 04-22-2023 End: 05-01-2023 Evaluation and management of inpatient [facility] Start: 04-09-2023 End: 04-10-2023 Encounter for preprocedural cardiovascular examination [facility] Start: 04-09-2023 End: 04-10-2023 ambulatory [facility] Start: 04-04-2023 ambulatory [facility] Start: 03-23-2023 Evaluation and manag ement of inpatient [facility] Start: 03-23-2023 Evaluation [facility] manag ement [facility] Start: 03-23-2023 Evaluation and manag ement of inpatient [facility] Start: 03-22-2023 Evaluation and manag ement of inpatient JENNA [facility] Start: 03-22-2023 Evaluation and manag ement of inpatient [facility] Start: 03-21-2023 End: 03-23-2023 Evaluation and management of inpatient DOMENIC [facility] Start: 01-29-2023 End: 01-30-2023 ambulatory ELIZABETH LINDSAY Facility[facility] Start: 01-29-2023 End: 01-29-2023 Patient encounter procedure ELIZABETH LINDSAY [facility] Start: 09-11-2022 ambulatory [facility] Start: 09-06-2022 End: 09-07-2022 ambulatory [facility] Start: 09-04-2022 ambulatory [facility] Start: 08-06-2022 End: 08-07-2022 ambulatory [facility] Start: 08-04-2022 End: 08-05-[address] ANGELLA JAQUEZ . Facility:[facility] Start: 07-25-2022 End: 07-26-[address] ANGELLA JAQUEZ . Facility: Start: 03-27-2022 End: 03-28-2022 ambulatory Casper RAUSCH Facility:[facility] Start: 03-27-2022 End: 03-27-2022 Patient encounter procedure Casper RAUSCH [facility] Start: 03-21-2022 End: 03-22-2022 ambulatory Casper RAUSCH Facility:[facility] Start: 03-21-2022 End: 03-21-2022 Patient encounter procedure Casper RAUSCH [facility] Start: 03-12-2022 End: 03-13-[address] CASPER RAUSCH Facility: Start: 02-05-2022 End: 02-05-2022 Patient encounter procedure Monica Mondragon Jr. [facility] [place] Start: 12-14-2021 End: 12-15-2021 ambulatory MONICA MONDRAGON JR Facility: Start: 12-05-2021 End: 12-05-2021 Patient encounter procedure Monica Mondragon Jr. [facility] [place] Procedures Date Procedure Procedure Detail Performing Clinician Start: 05-16-2023 Follow-up visit ELINA Leavitt Start: 05-14-2023 Follow-up visit ELINA Leavitt Start: 04-04-2023 Follow-up visit ELINA Leavitt Start: 09-11-2022 Follow-up visit ELINA Leavitt Start: 09-04-2022 Follow-up visit ELINA Leavitt Start: 07-25-[address] FABIOLA JAQUEZ . Comment on above: Performed By: #### P SASC #### [facility] [address] [place], [place] [address] Dr. Rehana Martinez Start: 03-21-2022 Cystoscopy ELIZABETH JOHNSTON Start: 12-14-[address] FABIOLA JAQUEZ . Comment on above: Performed By: #### P SAD ####[facility] [address] [place], [place] [address]BoDr. Rehana Martinez Start: 01-23-2018 Cystoscopy Monica stephen Jr. Comment on above: 07/22/09, 01/23/18 07/22/09, 01/23/18 Immunizations Immunization Date Immunization Notes Care Provider [facility] 06-20-2021 SARS-CoV-2 (COVID-19 ) mRNA BNT-162b2 vax Casper RAUSCH [facility] 09-13-2020 SARS-CoV-2 (COVID-19 ) Ad26 vaccine, recombinant Monica Mondragon Jr. [facility] 08-22-2020 SARS-CoV-2 (COVID-19 ) Ad26 vaccine, recombinant Monica Mondragon Jr. [facility] NEGATED: Highlighted row has not occurred!12-05-2021 influenza virus vaccine, unspecified formulation Monica Mondragon Jr. [facility] Payers Date Payer Category Payer Medicare [id number] 1960 Unknown [id number] 1955 Unknown [id number] 2.16.84 [id number] 1955 Unknown [id number] 2.16.84 [id number] 1955 Unknown [id number] 2.16.84 [id number] 1955 Unknown [id number] 2.16.84 [id number] 1955 Unknown [id number] 2.16.8 [id number] 1955 Unknown [id number] 2.16.8 [id number] 1955 Unknown [id number] 2.16.8 [id number] 1955 Unknown [id number] 2.16.8 [id number] Social History Date Type Detail Facility Start: 12-05-2021 Tobacco smoking status Heavy t obacco smoker (finding) [facility] Sex Assigned At Male [facility] Functional Status Date Assessment Result Facility 01-29-2023 Functional Status N/A [facility] 03-27-2022 Functional Status N/A [facility] 03-15-2022 Functional Status N/A [facility] 12-05-2021 Functional Status N/A [facility] Clinical Notes 05-23-2021 to 08-01-2023 LaboratoryLaboratoryLaboratoryLaboratory Note Date & Type Note Facility 08-01-2023 Note [facility] 07-30-2023 Note [facility] 07-18-2023 Note [facility] 07-18-2023 Note [facility] 07-18-2023 Note Increase imdur to 60 mg daily, decrease coreg back to 3.125 mg bid in light of bradycardia and somewhat labile B/P. [facility] 07-18-2023 Note [facility] 07-18-2023 Note [facility] 07-09-2023 Note [facility] 07-09-2023 Note [facility] 07-09-2023 Note [facility] 07-08-2023 Note [facility] 07-07-2023 Note [facility] 07-07-2023 Note [facility] 07-06-2023 Note [facility] 07-02-[address] chest wo [facility] 05-16-2023 Note [facility] 05-16-2023 Note [facility] 05-16-2023 Note [facility] 05-14-2023 Note [facility] 05-14-2023 Note [facility] 05-01-2023 Note Patient provided a c opy of the AVS. All questions answered. Patient discharged with belongings and taken down with transport via wheelchair and family at bedside. [facility] 05-01-2023 Note [facility] 05-01-2023 Note [facility] 05-01-2023 Note [facility] 05-01-2023 Note [facility] 04-30-2023 Note [facility] 04-30-2023 Note [facility] 04-29-2023 Note [facility] 04-29-2023 Note [facility] 04-29-2023 Note [facility] 04-29-2023 Note [facility] 04-28-2023 Note [facility] 04-28-2023 Note [facility] 04-27-2023 Note [facility] 04-27-2023 Note [facility] 04-27-2023 Note [facility] 04-27-2023 Note [facility] 04-26-2023 Note [facility] 04-26-2023 Note [facility] 04-26-2023 Note [facility] 04-26-2023 Note [facility] 04-26-2023 Note [facility] 04-26-2023 Note [facility] 04-25-2023 Note [facility] 04-25-2023 Note Attempted to call wi fe to get information and give updates. Was unable to reach her, will continue to try. [facility] 04-25-2023 Note [facility] 04-25-2023 Note [facility] 04-25-2023 Note [facility] 04-24-2023 Note Patient is still on vent support. Per RN was off and placed back on yesterday. Consult for s/p CABG. SW to follow. [facility] 04-24-2023 Note [facility] 04-24-2023 Note Physical Therapy Patient intubated/sedated at this time. PT will check back and follow as appropriate. CHANTEL Matos [facility] 04-24-2023 Note [facility] 04-24-2023 Note Occupational Therapy Cancel Note Reason: Patient intubated and sedated at this time. OT will continue to follow and will re-attempt as able. Time in: 0808 Check no charge Thelma CAMEJO, OTR/L, CLT [facility] 04-24-2023 Note [facility] 04-24-2023 Note [facility] 04-23-2023 Note [facility] 04-23-2023 Note [facility] 04-23-2023 Note [facility] 04-23-2023 Note [facility] 04-23-2023 Note [facility] 04-22-2023 Note TRIGGER: PRESSURE 1:1 FULLY AUGMENTED [facility] 04-22-2023 Note TRIGGER: PRESSURE 1:1 FULLY AUGMENTED [facility] 04-22-2023 Note INSERTED WITHOUT COM PLICATION USING STERILE TECHNIQUE; DRAINING CLEAR YELLOW URINE; TO BE MONITORED BY ANESTHESIA FOR DURATION OF THE CASE [facility] 04-22-2023 Note [facility] 04-22-2023 Note [facility] 04-22-2023 Note [facility] 04-09-2023 Note [facility] 04-09-2023 Note [facility] 04-04-2023 Note [facility] 04-01-2023 Note [facility] 03-23-2023 Note [facility] 03-23-2023 Note [facility] 03-22-2023 Note [facility] 03-22-2023 Note [facility] 09-11-2022 Note [facility] 09-04-2022 Note I reviewed with the resident the medical history and the resident???s findings on physical examination. I discussed with the resident the patient???s diagnosis and concur with the treatment plan as documented in the resident note. Shmuel Vásquez MD [facility] 09-04-2022 Note [facility] 03-27-2022 Hospital Discharge instructions Patient Education [...] urethra. Follow these instructions at home: Take fobu-vsd-qglbafs and prescription medicines only as told by [...] 06/03/2006 Document Revised: 04/28/2019 Document Reviewed: 07/08/2017 [employer] Patient Education Teads. Follow Up Care 03/21/2022 11:25:28 With:Giancarlo Campbell MD, ORLIN Pena Address: [facility] [address] , [place] [address]- When: Unknown [facility] 03-21-2022 Note [id number]:127 [facility] 02-27-2022 Hospital Discharge instructions Follow Up Care 02/27/2022 13:20:12 With:Casper RAUSCH Address: [address] [place] [address] Business (1) When:5 to 7 days With:Casper RAUSCH Address: [address] [place] [address]- Business (1) When: Unknown [facility] 12-05-2021 Hospital Discharge instructions Patient Education [...] Follow these instructions at home: Medicines Take wfjl-xke-slbzgzm and prescription medicines only as told by [...] or the blood stops without treatment. Take fkcd-vqw-thbacwq and prescription medicines only as told by your health care provider. Drink enough fluid to keep your urine clear or pale yellow. This information is not intended to replace advice given to you by your health care provider. Make sure you discuss any questions you have with your health care provider. Document Released: 06/03/2006 Document Revised: 10/28/2019 Document Reviewed: 07/06/2017 [employer] Patient Education 2020 [employer]. Follow Up Care 05/30/2021 15:33:59 With:Monica Mondragon Jr., MD, URO Address: [facility] [address] [place] [address]- [phone] When: Unknown [facility] 05-23-2021 Hospital Discharge instructions Follow Up Care 05/23/2021 11:27:47 With:ELIZABETH LINDSAY PA-C, URL Address: [address] [place], [place] [address] [address] When:Within 1 Year(s) Comments:w/PSA [facility] Evaluation + Plan note Future Appointments Appointment Date:05/22/2022 11:00:00 AM Scheduled Provider:Monica Mondragon Jr., MD Location:[facility] Appointment Type:URO Office Visit Diagnostic Tests PendingPSA Total 12/05/21 Future Scheduled TestsPSA Free & Total 05/30/21 [facility] Evaluation + Plan note Future Appointments Appointment Date:05/22/2022 11:00:00 AM Scheduled Provider:Monica Mondragon Jr., MD Location:[facility] Appointment Type:URO Office Visit Future Scheduled TestsPSA Free & Total 05/30/21 [facility] Evaluation + Plan note Future Appointments Appointment Date:03/27/2022 09:45:00 AM Scheduled Provider:Casper RAUSCH MD Location:[facility] Appointment Type:URO Office Visit Appointment Date:05/22/2022 11:00:00 AM Scheduled Provider:Monica Mondragon Jr., MD Location:[facility] Appointment Type:URO Office Visit Diagnostic Tests PendingUroVysion Fish and Urine Cyto ([facility]) 03/21/22 Future Scheduled TestsPSA Free & Total 05/30/21 [facility] Evaluation + Plan note Future Appointments Appointment Date:09/18/2022 09:15:00 AM Scheduled Provider:Monica Mondragon Jr., MD Location:[facility] Appointment Type:URO Office Visit Diagnostic Tests PendingPSA Free & Total 06/17/22 Future Scheduled TestsPSA Free & Total 05/30/21 [facility] Evaluation + Plan note Future Appointments Appointment Date:02/11/2024 08:30:00 AM Scheduled Provider:ELIZABETH LINDSAY PA-C Location:[facility] Appointment Type:URO Office Visit Diagnostic Tests PendingPSA Total 01/29/23 [facility] Hospital course Narrative No data available for this section [facility] Hospital Discharge instructions No data available for this section [facility] Progress note No data available for this section [facility] Summary Purpose Family History No Family History Records FoundNo Family History Records FoundNo Family History Records Found Advance Directives No Advanced Directives Records FoundNo Advanced Directives Records FoundNo Advanced Directives Records Found Additional Source Comments Care Team (unrecognized sect ion and content) Personnel Name: Angella Jaquez MD Address: [address] [place], [place] [id number] Personnel Name: Gisele MONTES DE OCA Angella Address: [address] [place] [address] [place] [address] Personnel Name: Angella Jaquez MD Address: Address: [address] [place] [address] [place] [address] Personnel Name: Angella Jaquez MD Address: Address: [address] [place] [address] [place], [place] [address] Personnel Name: Angella Jaquez MD Address: Address: [address] [place] [address] (unrecognized sect ion and content) No Status Records FoundNo Status Records FoundNo Status Records Found INFORMATION SOURCE (unrecogn ized section and content) DATE CREATED AUTHOR 08/10/2022 [facility] DATE CREATED AUTHOR AUTHOR'S ORGANIZ ATION 02/13/2023 [facility] DATE CREATED AUTHOR AUTHOR'S ORGANIZ ATION 08/03/2023 [facility] FOR RECORDS PERTAINING TO PATIENTS WHO [...] BE BASED ON THE PRIMARY CLINICAL RECORDS. [facility] provides no warranty or guarantee of the accuracy or completeness of information in this document.
[2023-08-14 12:10] LABS: Anion Gap 11.7; BUN Creatinine Ratio 17.1; Calcium 9.1 mg/dL (8.5-10.1); Carbon Dioxide 27.1 mmol/L (21.0-32.0); Chloride 105 mmol/L (98-107); Estimated GFR (African America >60 (>=60); Estimated GFR (Non-African Ame >60 (>=60); Glucose 146 mg/dL (74-106); Potassium 3.8 mmol/L (3.5-5.1); Sodium 140 mmol/L (136-145)
== END 2023-08-14 09:52 | disposition home or self-care (01) ==
LOC: LAB 09:52
PROVIDERS: PCP Family Medicine; Visit Provider Nurse Practitioner
DX: I50.22 Chronic systolic (congestive) heart failure (principal)
CPT/HCPCS: 36415; 80048

== ENCOUNTER 2023-08-31 17:11 | Inpatient (IN) | payer MEDICARE, SELFPAY ==
[2023-08-31] VITALS (63 sets, daily range): BP systolic 112–159; BP diastolic 57–101; PULSE 47–87; RESP 8–35; TEMP 36.6; O2SAT 81–100; BMI 23.9; BMI 23.8
--- OUTSIDE RECORDS SUMMARY | 2023-08-31 17:17 | XMS_ITS | CCD ---
Author Name Unknown Address [address] [place] [address] Organization [facility] Care Team Providers Care Pressurization Mechanic Name Role Phone Tyson Jaquez Primary Care Physician [phone] PERALES Admitting Unavailable HOY [...] Referring Unavailable RICE, Casper Grace Attending Unavailable KAREY SAWANT Referring Unavailabl e KUKAREY FREEMAN Referring Unavailabl e SAVANA, KAREY Dhaliwal Referring Unavailabl e CHAITANYA AMES Referring Unavailable KAREY SAWANT Referring Unavailabl e CARRIVERA, CHAITANYA Referring Unavailable JENNA CABRERA Referring Unavailable CARRICHAITANYA GAMEZ Attending Unavailable CARRIZO, CHAITANYA Admitting Unavailable DOMENIC NGUYEN Attending Unavailable SUSANNE CRAMER Admitting Unavailable YANN VILLALBA Referring Unavailable CARRIVERA, CHAITANYA Referring Unavailable CARRIZO, CHAITANYA Referring Unavailable JIGARSAEID MONROY Referring Unavailable JIGAR, SAEID Referring Unavailable JIGAR, Referring Unavailable CARRIZO, CHAITANYA Referring Unavailable JIGAR, Referring Unavailable KULAKOWSKI, KAREY Dhaliwal Referring Unavailabl e CARRIZO, CHAITANYA Referring Unavailable CARRIZO, CHAITANYA Referring Unavailable CARRIZO, CHAITANYA Referring Unavailable RAKAN, ZANDER Referring Unavailable CARRIZO, CHAITANYA Referring Unavailable KULAKOWSKI, KAREY Dhaliwal Referring Unavailabl e KULAKOWSKI, KAREY Dhaliwal Referring Unavailabl e KULAKOWSKI, KAREY Dhaliwal Referring Unavailabl e DARSHAN, RODGER Referring Unavailable CARRIZO, CHAITANYA Referring Unavailable RICK, JENNA Referring Unavailable PARENTEAU, SHMUEL Referring Unavailable OMBALLI, JACOB Attending Unavailable RICK, VALENTINA Attending Unavailable YANETH, MAYELIN Attending Unavailable JIGAR, SAEID Attending Unavailable PERNE, JUANITA Attending Unavailable CARRIZO, CHAITANAY Referring Unavailable OMBALLI, JACOB Attending Unavailable CARRIZO, CHAITANYA Attending Unavailable PARENTEAU, SHMUEL Attending Unavailable PATRICK, DOMENIC Referring Unavailable PATRICK, DOMENIC Referring Unavailable ELTAHAWY, MAIDA Attending Unavailable KULAKOWSKI, KAREY Dhaliwal Referring Unavailabl e CLIFFEL, CESAR Referring Unavailable CLIFFEL, CESAR Referring Unavailable CARRIZO, CHAITANYA Referring Unavailable CARRIZO, CHAITANYA Referring Unavailable PIRKL, MARY Referring Unavailable PIRKL, MARY Referring Unavailable PATRICK, DOMENIC Referring Unavailable PIRKL, MARY Referring Unavailable PARENTEAU, SHMUEL Referring Unavailable HAY, ELINA Referring Unavailable PATRICK, DOMENIC Attending Unavailable SHOAIB, SUSANNE Admitting Unavailable PAYRIZWANA Referring Unavailable Allergies Allergy Classification Reported Allergen(s) Allergy Type Date of Onset Reaction(s) Facility (1 source) No Known Medication Allergies; Translations: [No Known Medication Allergies] Propensity to adverse reactions (disorder) [facility] Repository Medications Current Medications Medication Drug [...] Daily, # 90 cap(s), Refills(s) 3, [id number], cm, 12/05/21 8:20:00 EDT, [...] procedure, # 2 cap(s), Refills(s) 0, Pharmacy: [facility] #[id number], 162, cm, 12/05/21 8:20:00 EDT, [...] Unstable angina; Translations: [Atherosclerotic heart disease of [place] coronary artery with other forms of angina [...] Test Name Value Interpretation Reference Range Facility 36on 08-29-2023 36 Pt informed Normal [facility] Orders Onlyon 08-01-2023 Orders Only [id number] Gui Ortiz Sr. 1955 M Date Provider Department Center 08/01/2023 MAYELIN HAMMONDS Family History Family history unknown: Yes Normal [facility] Documentationon 07-30-2023 Documentation [id number] Gui Ortiz Sr. 1955 M Date Provider Department Center 07/30/2023 MAYELIN HAMMONDS In[facility]ogrzegorz Marie Family History Family history unknown: Yes Normal [facility] 37on 07-18-2023 37 Normal [facility] Follow-Upon 07-18-2023 Follow-Up Normal [facility] 30on 07-09-2023 30 Normal [facility] BASIC METABOLIC PANELon 06-18 Anion gap [Moles/Vol] 11 mmol/L Normal 7-20 [facility] Comment on above: Performed By: #### L [id number] ####[facility] ([facility])[address] [place] [address] Calcium [Mass/Vol] 9.0 mg/dL Normal 8.6-10.3 [facility] Comment on above: Performed By: #### L [id number] ####[facility] ([facility])[address] [place] [address] Chloride [Moles/Vol] 105 mmol/L Normal 98-107 [facility] Comment on above: Performed By: #### L [id number] ####[facility] ([facility])[address] [place] [address] CO2 [Moles/Vol] 22 mmol/L Normal 21-31 [facility] Comment on above: Performed By: #### L [id number] ####[facility] ([facility])[address] [place] [address] Creatinine [Mass/Vol] 0.89 mg/dL Normal 0.70-1.30 [facility] Comment on above: Performed By: #### L [id number] ####[facility] ([facility])[address] [place] [address] GLOMERULAR FILTRATION RATE ML/MIN/1.73 SQ M.PREDICTED 92.8 mL/min/1.73m*2 Normal >60.0 [facility] Comment on above: Result Comment: The [facility]???s estimated glomerular filtration rate (eGFR) will no [...] of individuals. Performed By: #### L [id number] ####[facility] ([facility])[address] [place] [address] Glucose [Mass/Vol] 102 mg/dL High 70-100 [facility] Comment on above: Performed By: #### L [id number] ####[facility] ([facility])[address] [facility] [address] Potassium [Moles/Vol] 3.5 mmol/L Normal 3.5-5.1 [facility] Comment on above: Performed By: #### L [id number] ####[facility] ([facility])[address] [facility] [address] Sodium [Moles/Vol] 134 mmol/L Low 136-145 [facility] Comment on above: Performed By: #### L [id number] ####[facility] ([facility])[address] [facility] [address] Urea nitrogen [Mass/Vol] 16 mg/dL Normal 7-25 [facility] Comment on above: Performed By: #### L [id number] ####[facility] ([facility])[address] [facility] [address] UREA NITROGEN/CREATININ E (MASS RATIO) IN SER/PLAS 18.0 Normal [facility] Comment on above: Performed By: #### L [id number] ####[facility] ([facility])[address] [facility] [place] [address] DSon 07-09-2023 DS [facility] Orders Onlyon 07-09-2023 Orders Only [id number] Gui Ortiz Sr. 1955 M Date Provider Department Center 07/09/2023 MAYELIN HAMMONDS [facility]. Family History Family history unknown: Yes [facility] 30on 07-08-2023 30 The patient is Moder ately Stable - Low risk of patient condition declining or worsening The patient's goals for the shift include comfort The clinical goals for the shift include vss Normal [facility] 30 Normal [facility] ANESon 07-08-2023 ANES [facility] ANTI-XA (HEPARIN LEVEL)on HEPARIN UNFRACTIONATED (U/ML) IN PPP BY CHROMOGENIC METHOD 0.39 IU/mL Normal 0.3-0.7 [facility] Comment on above: Order Comment: Check anti-Xa level every 6 hours while on heparin infusion, or per protocol. Result Comment: [place] roxaban and Apixaban will interfere with the anti Xa assay used to monitor UFH and LMWH. Performed By: #### L [id number] ####[facility] ([facility])[address] [place] [address] BASIC METABOLIC PANELon 06-18 Anion gap [Moles/Vol] 11 mmol/L Normal 7-20 [facility] Comment on above: Performed By: #### L [id number] ####[facility] ([facility] [place] [address] Calcium [Mass/Vol] 10.0 mg/dL Normal 8.6-10.3 [facility] Comment on above: Performed By: #### L [id number] ####[facility] ([facility])[address] [place] [address] Chloride [Moles/Vol] 105 mmol/L Normal 98-107 [facility] Comment on above: Performed By: #### L [id number] ####[facility] ([facility])[address] [place] [address] CO2 [Moles/Vol] 26 mmol/L Normal 21-31 [facility] Comment on above: Performed By: #### L [id number] ####[facility] ([facility])[address] [place] [address] Creatinine [Mass/Vol] 1.02 mg/dL Normal 0.70-1.30 [facility] Comment on above: Performed By: #### L [id number] ####[facility] ([facility])[address] [facility] [address] GLOMERULAR FILTRATION RATE ML/MIN/1.73 SQ M.PREDICTED 79.6 mL/min/1.73m*2 Normal >60.0 [facility] Comment on above: Result Comment: The [facility]???s estimated glomerular filtration rate (eGFR) will no [...] of individuals. Performed By: #### L [id number] ####[facility] ([facility])[address] [place] [address] Glucose [Mass/Vol] 112 mg/dL High 70-100 [facility] Comment on above: Performed By: #### L [id number] ####[facility] ([facility])[address] [place] [address] Potassium [Moles/Vol] 4.5 mmol/L Normal 3.5-5.1 [facility] Comment on above: Performed By: #### L [id number] ####[facility] ([facility])[address] [facility] [address] Sodium [Moles/Vol] 137 mmol/L Normal 136-145 [facility] Comment on above: Performed By: #### L [id number] ####[facility] ([facility])[address] [place] [address] Urea nitrogen [Mass/Vol] 15 mg/dL Normal 7-25 [facility] Comment on above: Performed By: #### L [id number] ####[facility] ([facility])[address] [place] [address] UREA NITROGEN/CREATININ E (MASS RATIO) IN SER/PLAS 14.7 Normal [facility] Comment on above: Performed By: #### L [id number] ####[facility] ([facility])[address] [facility] [address] CBCon 07-08-2023 Erythrocyte distribution width (RBC) [Ratio] 13.5 % Normal 11.5-15.0 [facility] Comment on above: Performed By: #### L [id number] ####[facility] ([facility])[address] [facility] [place] [address] ERYTHROCYTE MEAN CORPUSCULAR HEMOGLOBIN CONCENTRATION (G/DL) BY AUTOMATED 33.0 g/dL Normal 32.0-35.0 [facility] Comment on above: Performed By: #### L [id number] ####[facility] ([facility])[address] [place] [address] Hematocrit (Bld) [Volume fraction] 39.4 % Normal 39.0-55.0 [facility] Comment on above: Performed By: #### L [id number] ####[facility] ([facility])[address] [place] [address] Hemoglobin (Bld) [Mass/Vol] 13.0 g/dL Normal 13.0-17.0 [facility] Comment on above: Performed By: #### L [id number] ####[facility] ([facility])[address] [place] [address] MCH (RBC) [Entitic mass] 29.1 pg Normal 27.0-33.0 [facility] Comment on above: Performed By: #### L [id number] ####[facility] ([facility])[address] [place] [address] MCV (RBC) [Entitic vol] 88.3 fL Normal 82.0-98.0 [facility] Comment on above: Performed By: #### L [id number] ####[facility] ([facility])[address] [place] [address] PLATELETS (10*3/UL) IN BLOOD AUTOMATED COUNT 248 10*3/uL Normal 150-400 [facility] Comment on above: Performed By: #### L [id number] ####[facility] ([facility])[address] [place] [address] RBC (Bld) [#/Vol] 4.46 10*6/uL Normal 4.20-5.70 [facility] Comment on above: Performed By: #### L [id number] ####[facility] ([facility])[address] [place] [address] WBC (Bld) [#/Vol] 7.02 10*3/uL Normal 4.00-10.60 [facility] Comment on above: Performed By: #### L [id number] ####[facility] ([facility])[address] [place] [address] HPon 07-08-2023 HP H&P reviewed. The pa tient was examined and there are changes to the H&P, specifically, the L radial pulse is absent as are the distal PT and DP pulses. Normal [facility] LIPID PANELon 07-08-2023 CHOL/HDL 2.6 mg/dL Normal [facility] Comment on above: Performed By: #### L [id number] ####[facility] ([facility])[address] [place] [address] Cholesterol [Mass/Vol] 105 mg/dL Low 120-200 [facility] Comment on above: Performed By: #### L [id number] ####[facility] ([facility])[address] [place] [address] Magnesium [Mass/Vol] 63 mg/dL Normal 40-149 [facility] Comment on above: Result Comment: TRIG LYCERIDE REFERENCE RANGE:20 YEARS AND OLDER CARDIOVASCULAR RISKLESS THAN 150 mg/dL LOW [id number] TO 199 mg/dL BORDERLINE [id number] mg/dL AND GREATER HIGH RISK Performed By: #### L [id number] ####[facility] ([facility])[address] [place] [address] Magnesium [Mass/Vol] 52 mg/dL Normal 0-160 [facility] Comment on above: Performed By: #### L [id number] ####[facility] ([facility])[address] [place] [address] Magnesium [Mass/Vol] 40 mg/dL Normal 23-92 [facility] Comment on above: Performed By: #### L [id number] ####[facility] ([facility])[address] [place] [address] NON HDL CHOL. (LDL+VLDL) 65 Normal [facility] Comment on above: Performed By: #### L [id number] ####[facility] ([facility])[address] [place] [address] TOTAL VLDL-C 13 mg/dL Normal 0-40 [facility] Comment on above: Performed By: #### L [id number] ####[facility] ([facility])[address] [place] [address] NURSNOTEon 07-08-2023 NURSNOTE Normal [facility] 30on 07-07-2023 30 Normal [facility] ANTI-XA (HEPARIN LEVEL)on HEPARIN UNFRACTIONATED (U/ML) IN PPP BY CHROMOGENIC METHOD 0.35 IU/mL Normal 0.3-0.7 [facility] Comment on above: Result Comment: [place] roxaban and Apixaban will interfere with the anti Xa assay used to monitor UFH and LMWH. Performed By: #### L [id number] ####[facility] ([facility])[address] [place] [address] HEPARIN UNFRACTIONATED (U/ML) IN PPP BY CHROMOGENIC METHOD 0.35 IU/mL Normal 0.3-0.7 [facility] Comment on above: Order Comment: Check anti-Xa level every 6 hours while on heparin infusion, or per protocol. Result Comment: [place] roxaban and Apixaban will interfere with the anti Xa assay used to monitor UFH and LMWH. Performed By: #### L [id number] ####[facility] ([facility])[address] [place] [address] BASIC METABOLIC PANELon 06-18 Anion gap [Moles/Vol] 12 mmol/L Normal 7-20 [facility] Comment on above: Performed By: #### L [id number] ####[facility] ([facility])[address] [place] [address] Calcium [Mass/Vol] 9.0 mg/dL Normal 8.6-10.3 [facility] Comment on above: Performed By: #### L [id number] ####[facility] ([facility])[address] [place] [address] Chloride [Moles/Vol] 106 mmol/L Normal 98-107 [facility] Comment on above: Performed By: #### L [id number] ####[facility] ([facility])[address] [place] [address] CO2 [Moles/Vol] 22 mmol/L Normal 21-31 [facility] Comment on above: Performed By: #### L [id number] ####[facility] ([facility])[address] [place] [address] Creatinine [Mass/Vol] 0.79 mg/dL Normal 0.70-1.30 [facility] Comment on above: Performed By: #### L [id number] ####[facility] ([facility])[address] [place] [address] GLOMERULAR FILTRATION RATE ML/MIN/1.73 SQ M.PREDICTED 96.2 mL/min/1.73m*2 Normal >60.0 [facility] Comment on above: Result Comment: The [facility]???s estimated glomerular filtration rate (eGFR) will no [...] of individuals. Performed By: #### L [id number] ####[facility] ([facility])[address] [place] [address] Glucose [Mass/Vol] 113 mg/dL High 70-100 [facility] Comment on above: Performed By: #### L [id number] ####[facility] ([facility])[address] [place] [address] Potassium [Moles/Vol] 3.6 mmol/L Normal 3.5-5.1 [facility] Comment on above: Performed By: #### L [id number] ####[facility] ([facility])[address] [place] [address] Sodium [Moles/Vol] 136 mmol/L Normal 136-145 [facility] Comment on above: Performed By: #### L [id number] ####[facility] ([facility])[address] [place] [address] Urea nitrogen [Mass/Vol] 16 mg/dL Normal 7-25 [facility] Comment on above: Performed By: #### L [id number] ####[facility] ([facility])[address] [place] [address] UREA NITROGEN/CREATININ E (MASS RATIO) IN SER/PLAS 20.3 [facility] Comment on above: Performed By: #### L [id number] ####[facility] ([facility])[address] [place] [address] 30on 07-06-2023 30 The patient is Moder ately Stable - Low risk of patient condition declining or worsening The patient's goals for the shift include comfort The clinical goals for the shift include VSS [facility] 30 Normal [facility] ANTI-XA (HEPARIN LEVEL)on HEPARIN UNFRACTIONATED (U/ML) IN PPP BY CHROMOGENIC METHOD 0.34 IU/mL Normal 0.3-0.7 [facility] Comment on above: Order Comment: Check anti-Xa level every 6 hours while on heparin infusion, or per protocol. Result Comment: [place] roxaban and Apixaban will interfere with the anti Xa assay used to monitor UFH and LMWH. Performed By: #### L [id number] ####[facility] ([facility])[address] [place] [address] HEPARIN UNFRACTIONATED (U/ML) IN PPP BY CHROMOGENIC METHOD 0.22 IU/mL Low 0.3-0.7 [facility] Comment on above: Order Comment: Check anti-Xa level every 6 hours while on heparin infusion, or per protocol. Result Comment: [place] roxaban and Apixaban will interfere with the anti Xa assay used to monitor UFH and LMWH. Performed By: #### L [id number] ####[facility] ([facility])[address] [place] [address] HEPARIN UNFRACTIONATED (U/ML) IN PPP BY CHROMOGENIC METHOD 0.16 IU/mL Invalid Interpretation Code 0.3-0.7 [facility] Comment on above: Order Comment: Check anti-Xa level every 6 hours while on heparin infusion, or per protocol. Result Comment: [place] roxaban and Apixaban will interfere with the anti Xa assay used to monitor UFH and LMWH. Performed By: #### L [id number] ####[facility] ([facility])[address] [place] [address] HEPARIN UNFRACTIONATED (U/ML) IN PPP BY CHROMOGENIC METHOD 0.17 IU/mL Low 0.3-0.7 [facility] Comment on above: Order Comment: Check anti-Xa level every 6 hours while on heparin infusion, or per protocol. Result Comment: [place] roxaban and Apixaban will interfere with the anti Xa assay used to monitor UFH and LMWH. Performed By: #### L [id number] ####[facility] ([facility])[address] [place] [address] CBCon 07-06-2023 Erythrocyte distribution width (RBC) [Ratio] 13.7 % Normal 11.5-15.0 [facility] Comment on above: Performed By: #### L [id number] ####[facility] ([facility])[address] [place] [address] ERYTHROCYTE MEAN CORPUSCULAR HEMOGLOBIN CONCENTRATION (G/DL) BY AUTOMATED 34.3 g/dL Normal 32.0-35.0 [facility] Comment on above: Performed By: #### L [id number] ####[facility] ([facility])[address] [place] [address] Hematocrit (Bld) [Volume fraction] 38.8 % Low 39.0-55.0 [facility] Comment on above: Performed By: #### L [id number] ####[facility] ([facility])[address] [place] [address] Hemoglobin (Bld) [Mass/Vol] 13.3 g/dL Normal 13.0-17.0 [facility] Comment on above: Performed By: #### L [id number] ####[facility] ([facility])[address] [place] [address] MCH (RBC) [Entitic mass] 29.6 pg Normal 27.0-33.0 [facility] Comment on above: Performed By: #### L [id number] ####[facility] ([facility])[address] [place] [address] MCV (RBC) [Entitic vol] 86.4 fL Normal 82.0-98.0 [facility] Comment on above: Performed By: #### L [id number] ####[facility] ([facility])[address] [place] [address] PLATELETS (10*3/UL) IN BLOOD AUTOMATED COUNT 242 10*3/uL Normal 150-400 [facility] Comment on above: Performed By: #### L [id number] ####[facility] ([facility])[address] [place] [address] RBC (Bld) [#/Vol] 4.49 10*6/uL Normal 4.20-5.70 [facility] Comment on above: Performed By: #### L [id number] ####[facility] ([facility])[address] [place] [address] WBC (Bld) [#/Vol] 6.59 10*3/uL Normal 4.00-10.60 [facility] Comment on above: Performed By: #### L [id number] ####[facility] ([facility])[address] [place] [address] CONSULTon 07-06-2023 CONSULT Normal [facility] HPon 07-06-2023 HP Normal [facility] TROPONIN Ion 07-06-2023 Troponin I.cardiac [Mass/Vol] 0.03 ng/mL Normal 0.00-0.04 [facility] Comment on above: Performed By: #### L [id number] ####[facility] ([facility])[address] [place] [address] Troponin I.cardiac [Mass/Vol] 0.05 ng/mL High 0.00-0.04 [facility] Comment on above: Performed By: #### L [id number] ####[facility] ([facility])[address] [place] [address] Troponin I.cardiac [Mass/Vol] 0.06 ng/mL High 0.00-0.04 [facility] Comment on above: Performed By: #### L [id number] ####[facility] ([facility])[address] [place] [address] Troponin I.cardiac [Mass/Vol] 0.12 ng/mL Critically high 0.00-0.04 [facility] Comment on above: Result Comment: M-ID EVIOUS CRITICAL RESULTPrevious result verified on 07/05/20235 on specimen/case [id number] called with component Troponin I for procedure Troponin I with value 0.23 ng/mL. Performed By: #### L [id number] ####[facility] ([facility])[address] [place] [address] 30on 07-05-2023 30 Normal [facility] APTTon 07-05-2023 ACTIVATED PARTIAL THROMBOPLASTIN TIME IN PPP BY COAGULATION ASSAY 36.3 Seconds High 25.0-35.0 [facility] Comment on above: Order Comment: Basel ine aPTT before initiating heparin infusion. Result Comment: Clin ical significance of the APTT is questionable in the presence of heparin. Performed By: #### L [id number] ####[facility] ([facility])[address] [place] [address] B-TYPE NATRIURETIC PEPTIDEon 07-05-2023 Natriuretic peptide B (Bld) [Mass/Vol] 346 pg/mL High 0-100 [facility] Comment on above: Performed By: #### L [id number] ####[facility] ([facility])[address] [place] [address] CBC WITH AUTO DIFFERENTIALon 07-05-2023 Basophils (Bld) [#/Vol] 0.03 10*3/uL Normal 0.00-0.20 [facility] Comment on above: Performed By: #### L [id number] ####[facility] ([facility])[address] [place] [address] Basophils/100 WBC (Bld) 0.5 % Normal 0.0-1.0 [facility] Comment on above: Performed By: #### L [id number] ####[facility] ([facility])[address] [place] [address] Eosinophils (Bld) [#/Vol] 0.15 10*3/uL Normal 0.00-0.50 [facility] Comment on above: Performed By: #### L [id number] ####[facility] ([facility])[address] [place] [address] Eosinophils/100 WBC (Bld) 2.3 % Normal 0.0-6.0 [facility] Comment on above: Performed By: #### L [id number] ####[facility] ([facility])[address] [place] [address] Erythrocyte distribution width (RBC) [Ratio] 13.6 % Normal 11.5-15.0 [facility] Comment on above: Performed By: #### L [id number] ####[facility] ([facility])[address] [place] [address] ERYTHROCYTE MEAN CORPUSCULAR HEMOGLOBIN CONCENTRATION (G/DL) BY AUTOMATED 34.1 g/dL Normal 32.0-35.0 [facility] Comment on above: Performed By: #### L [id number] ####[facility] (BEAKER)[address] [place] [address] Hematocrit (Bld) [Volume fraction] 41.7 % Normal 39.0-55.0 [facility] Comment on above: Performed By: #### L [id number] ####[facility] (BEAKER)[address] [place] [address] Hemoglobin (Bld) [Mass/Vol] 14.2 g/dL Normal 13.0-17.0 [facility] Comment on above: Performed By: #### L [id number] ####[facility] (BEAKER)[address] [place] [address] Immature granulocytes (Bld) [#/Vol] 0.01 10*3/uL Normal 0.00-0.20 [facility] Comment on above: Performed By: #### L [id number] ####[facility] (BEAKER)[address] [place] [address] Immature granulocytes/100 WBC (Bld) 0.2 % Normal 0.0-1.0 [facility] Comment on above: Performed By: #### L [id number] ####[facility] (BEAKER)[address] [place] [address] Lymphocytes (Bld) [#/Vol] 2.12 10*3/uL Normal 1.20-4.00 [facility] Comment on above: Performed By: #### L [id number] ####[facility] (BEAKER)[address] [place] [address] Lymphocytes/100 WBC (Bld) 32.7 % Normal 20.0-45.0 [facility] Comment on above: Performed By: #### L [id number] ####[facility] (BEAKER)[address] [place] [address] MCH (RBC) [Entitic mass] 29.3 pg Normal 27.0-33.0 [facility] Comment on above: Performed By: #### L [id number] ####[facility] (BEAKER)[address] [place] [address] MCV (RBC) [Entitic vol] 86.2 fL Normal 82.0-98.0 [facility] Comment on above: Performed By: #### L [id number] ####[facility] (BEAKER)[address] [place] [address] Monocytes (Bld) [#/Vol] 0.64 10*3/uL Normal 0.10-1.00 [facility] Comment on above: Performed By: #### L [id number] ####[facility] (BEAKER)[address] [place] [address] Monocytes/100 WBC (Bld) 9.9 % Normal 5.0-12.0 [facility] Comment on above: Performed By: #### L [id number] ####[facility] (BEAKER)[address] [place] [address] Neutrophils (Bld) [#/Vol] 3.54 10*3/uL Normal 1.60-7.60 [facility] Comment on above: Performed By: #### L [id number] ####[facility] ([facility] [place] [address] Neutrophils/100 WBC (Bld) 54.4 % Normal 40.0-72.0 [facility] Comment on above: Performed By: #### L [id number] ####[facility] ([facility])[address] [place] [address] NRBC (PER 100 WBCS) BY AUTOMATED COUNT 0.0 % Normal 0 [facility] Comment on above: Performed By: #### L [id number] ####[facility] ([facility])[address] [place] [address] PLATELETS (10*3/UL) IN BLOOD AUTOMATED COUNT 277 10*3/uL Normal 150-400 [facility] Comment on above: Performed By: #### L [id number] ####[facility] (BEAKER)[address] [place] [address] RBC (Bld) [#/Vol] 4.84 10*6/uL Normal 4.20-5.70 [facility] Comment on above: Performed By: #### L [id number] ####[facility] (BEAKER)[address] [place] [address] WBC (Bld) [#/Vol] 6.49 10*3/uL Normal 4.00-10.60 [facility] Comment on above: Performed By: #### L [id number] ####[facility] (BEAKER)[address] [place] [address] COMPREHENSIVE METABOLIC PANE Roddy 07-05-2023 Albumin [Mass/Vol] 3.9 g/dL Normal 3.5-5.7 [facility] Comment on above: Performed By: #### L [id number] ####[facility] ([facility])[address] [place] [address] ALP [Catalytic activity/Vol] 127 U/L High 34-104 [facility] Comment on above: Performed By: #### L [id number] ####[facility] ([facility])[address] [place] [address] ALT [Catalytic activity/Vol] 10 U/L Normal 7-52 [facility] Comment on above: Performed By: #### L [id number] ####[facility] ([facility])[address] [place] [address] Anion gap [Moles/Vol] 14 mmol/L Normal 7-20 [facility] Comment on above: Performed By: #### L [id number] ####[facility] ([facility])[address] [place] [address] AST [Catalytic activity/Vol] 15 U/L Normal 13-39 [facility] Comment on above: Performed By: #### L [id number] ####[facility] ([facility])[address] [place] [address] Bilirubin [Mass/Vol] 0.4 mg/dL Normal 0.3-1.0 [facility] Comment on above: Performed By: #### L [id number] ####[facility] ([facility])[address] [place] [address] Calcium [Mass/Vol] 9.4 mg/dL Normal 8.6-10.3 [facility] Comment on above: Performed By: #### L [id number] ####[facility] ([facility])[address] [place] [address] Chloride [Moles/Vol] 106 mmol/L Normal 98-107 [facility] Comment on above: Performed By: #### L [id number] ####[facility] ([facility])[address] [place] [address] CO2 [Moles/Vol] 23 mmol/L Normal 21-31 [facility] Comment on above: Performed By: #### L [id number] ####[facility] ([facility])[address] [place] [address] Creatinine [Mass/Vol] 0.78 mg/dL Normal 0.70-1.30 [facility] Comment on above: Performed By: #### L [id number] ####[facility] ([facility])[address] [place] [address] GLOMERULAR FILTRATION RATE ML/MIN/1.73 SQ M.PREDICTED 96.5 mL/min/1.73m*2 Normal >60.0 [facility] Comment on above: Result Comment: The [facility]???s estimated glomerular filtration rate (eGFR) will no [...] of individuals. Performed By: #### L [id number] ####[facility] ([facility])[address] [place] [address] Glucose [Mass/Vol] 114 mg/dL High 70-100 [facility] Comment on above: Performed By: #### L [id number] ####[facility] ([facility])[address] [place] [address] Potassium [Moles/Vol] 3.5 mmol/L Normal 3.5-5.1 [facility] Comment on above: Performed By: #### L [id number] ####[facility] ([facility])[address] [place] [address] Protein [Mass/Vol] 7.5 g/dL Normal 6.0-8.3 [facility] Comment on above: Performed By: #### L [id number] ####[facility] ([facility])[address] [place] [address] Sodium [Moles/Vol] 139 mmol/L Normal 136-145 [facility] Comment on above: Performed By: #### L [id number] ####[facility] ([facility])[address] [place] [address] Urea nitrogen [Mass/Vol] 13 mg/dL Normal 7-25 [facility] Comment on above: Performed By: #### L [id number] ####[facility] ([facility])[address] [place] [address] UREA NITROGEN/CREATININ E (MASS RATIO) IN SER/PLAS 16.7 Normal [facility] Comment on above: Performed By: #### L [id number] ####[facility] ([facility])[address] [place] [address] HPon 07-05-2023 HP Normal [facility] MAGNESIUMon 07-05-2023 Magnesium [Mass/Vol] 1.8 mg/dL Low 1.9-2.7 [facility] Comment on above: Performed By: #### L [id number] ####[facility] ([facility])[address] [place] [address] NURSNOTEon 07-05-2023 NURSNOTE Lead RN called admit amalia MONTES DE OCA, no new orders as of this time. Hebrew Professor verified diet order, pt placing order for dinner. Will continue to monitor Normal [facility] PHOSPHORUSon 07-05-2023 Magnesium [Mass/Vol] 3.5 mg/dL Normal 2.5-5.0 [facility] Comment on above: Performed By: #### L [id number] ####[facility] ([facility])[address] [place] [address] POCT GLUCOSE METER UNSOLICIT ED RESULTSon 07-05-2023 Glucose [Mass/Vol] 163 mg/dL High 70-105 [facility] Comment on above: Order Comment: Waive d Testing in the ED is performed under the ED CLIA certificate #[id number]. Result Comment: [email or web address] Performed By: #### L [id number] ####[facility] ([facility] [place] [address] PROTIME-INRon 07-05-2023 INR IN PPP BY COAGULATION ASSAY 1.07 Normal 0.90-1.10 [facility] Comment on above: Result Comment: ACCC P [...] CHEST 1995;[id number]. Performed By: #### L [id number] ####[facility] ([employer])[address] [place] [address] PROTHROMBIN TIME (PT) IN PPP BY COAGULATION ASSAY 13.9 Seconds Normal 12.3-14.8 [facility] Comment on above: Performed By: #### L [id number] ####[facility] ([facility])[address] [place] [address] TROPONIN Ion 07-05-2023 Troponin I.cardiac [Mass/Vol] 0.23 ng/mL Critically high 0.00-0.04 [facility] Comment on above: Result Comment: M-CR ITICAL RESULT(S) REVIEWED, CALLED TO AND READ BACK BY MARY SIMMONS RN AT 2224M-TROPONIN INITIAL CRITICAL HIGH; RESPUN AND RETESTED Performed By: #### L [id number] ####[facility] (BEAKER)[address] [place] [address] Orders Onlyon 07-02-2023 Orders Only [id number] Gui Ortiz Sr. 1955 M Date Provider Department Center 07/02/2023 ALLEN HUA DCC ONC DCC Family History Family history unknown: Yes Normal [facility] 29on 05-16-2023 29 Addended by: PASCUAL VELARDE on: 05/16/2023 03:51 PM Modules accepted: Orders Normal [facility] 29 Addended by: PASCUAL VELARDE on: 05/16/2023 03:50 PM Modules accepted: Orders Normal [facility] Follow-Upon 05-16-2023 Follow-Up Normal [facility] 36on 05-03-2023 36 Normal [facility] Telephoneon 05-03-2023 Telephone [id number] Gui Ortiz 1955 M Date Provider Department Center 05/03/2023 113-JIGAR, HVCVASENDO [facility] Family History Family history unknown: Yes Normal [facility] 36on 05-02-2023 36 Normal [facility] 30on 05-01-2023 30 Normal [facility] 30 Normal [facility] BASIC METABOLIC PANELon 04-17 Anion gap [Moles/Vol] 11 mmol/L Normal 7-20 [facility] Comment on above: Performed By: #### L [id number] ####[facility] (BEAKER)[address] [place] [address] Calcium [Mass/Vol] 8.4 mg/dL Low 8.6-10.3 [facility] Comment on above: Performed By: #### L [id number] ####[facility] (BEAKER)[address] [place] [address] Chloride [Moles/Vol] 109 mmol/L High 98-107 [facility] Comment on above: Performed By: #### L [id number] ####[facility] (BEAKER)[address] [place] [address] CO2 [Moles/Vol] 22 mmol/L Normal 21-31 [facility] Comment on above: Performed By: #### L [id number] ####[facility] (BEAKER)[address] [place] [address] Creatinine [Mass/Vol] 0.62 mg/dL Low 0.70-1.30 [facility] Comment on above: Performed By: #### L [id number] ####[facility] ([facility] [place] [address] GLOMERULAR FILTRATION RATE ML/MIN/1.73 SQ M.PREDICTED 103.5 mL/min/1.73m*2 Normal >60.0 [facility] Comment on above: Result Comment: The [facility]???s estimated glomerular filtration rate (eGFR) will no [...] of individuals. Performed By: #### L [id number] ####[facility] (BEAKER)[address] [place] [address] Glucose [Mass/Vol] 98 mg/dL Normal 70-100 [facility] Comment on above: Performed By: #### L [id number] ####[facility] (BEAKER)[address] [place] [address] Potassium [Moles/Vol] 3.7 mmol/L Normal 3.5-5.1 [facility] Comment on above: Performed By: #### L [id number] ####[facility] (BEAKER)[address] [place] [address] Sodium [Moles/Vol] 138 mmol/L Normal 136-145 [facility] Comment on above: Performed By: #### L [id number] ####[facility] ([facility] [place] [address] Urea nitrogen [Mass/Vol] 12 mg/dL Normal 7-25 [facility] Comment on above: Performed By: #### L [id number] ####[facility] ([facility])[address] [place] [address] UREA NITROGEN/CREATININ E (MASS RATIO) IN SER/PLAS 19.4 Normal [facility] Comment on above: Performed By: #### L [id number] ####[facility] ([facility])[address] [place] [address] CBCon 05-01-2023 Erythrocyte distribution width (RBC) [Ratio] 14.5 % Normal 11.5-15.0 [facility] Comment on above: Performed By: #### L [id number] ####[facility] ([facility])[address] [place] [address] ERYTHROCYTE MEAN CORPUSCULAR HEMOGLOBIN CONCENTRATION (G/DL) BY AUTOMATED 33.2 g/dL Normal 32.0-35.0 [facility] Comment on above: Performed By: #### L [id number] ####[facility] ([facility])[address] [place] [address] Hematocrit (Bld) [Volume fraction] 27.4 % Low 39.0-55.0 [facility] Comment on above: Performed By: #### L [id number] ####[facility] ([facility])[address] [place] [address] Hemoglobin (Bld) [Mass/Vol] 9.1 g/dL Low 13.0-17.0 [facility] Comment on above: Performed By: #### L [id number] ####[facility] ([facility])[address] [place] [address] MCH (RBC) [Entitic mass] 30.7 pg Normal 27.0-33.0 [facility] Comment on above: Performed By: #### L [id number] ####[facility] ([facility])[address] [place] [address] MCV (RBC) [Entitic vol] 92.6 fL Normal 82.0-98.0 [facility] Comment on above: Performed By: #### L [id number] ####[facility] ([facility])[address] [place] [address] PLATELETS (10*3/UL) IN BLOOD AUTOMATED COUNT 276 10*3/uL Normal 150-400 [facility] Comment on above: Performed By: #### L [id number] ####[facility] ([facility])[address] [place] [address] RBC (Bld) [#/Vol] 2.96 10*6/uL Low 4.20-5.70 [facility] Comment on above: Performed By: #### L [id number] ####[facility] ([facility])[address] [place] [address] WBC (Bld) [#/Vol] 6.87 10*3/uL Normal 4.00-10.60 [facility] Comment on above: Performed By: #### L [id number] ####[facility] ([facility])[address] [place] [address] DSon 05-01-2023 DS Normal [facility] MAGNESIUMon 05-01-2023 Magnesium [Mass/Vol] 1.7 mg/dL Low 1.9-2.7 [facility] Comment on above: Performed By: #### L [id number] ####[facility] ([facility])[address] [place] [address] NURSNOTEon 05-01-2023 NURSNOTE Normal [facility] NURSNOTE Normal [facility] PHOSPHORUSon 05-01-2023 Magnesium [Mass/Vol] 3.8 mg/dL Normal 2.5-5.0 [facility] Comment on above: Performed By: #### L [id number] ####[facility] ([facility])[address] [place] [address] POCT GLUCOSE METER UNSOLICIT ED RESULTSon 05-01-2023 Glucose [Mass/Vol] 116 mg/dL High 70-105 [facility] Comment on above: Order Comment: Waive d Testing in the ED is performed under the ED CLIA certificate #[id number]. Result Comment: [email or web address] Performed By: #### L [id number] ####[facility] ([facility] [place] [address] Glucose [Mass/Vol] 115 mg/dL High 70-105 [facility] Comment on above: Order Comment: Waive d Testing in the ED is performed under the ED CLIA certificate #[id number]. Result Comment: [email or web address] Performed By: #### L [id number] ####[facility] ([facility])[address] [place] [address] 30on 04-30-2023 30 Normal [facility] 30 Normal [facility] 30 Normal [facility] BASIC METABOLIC PANELon 04-17 Anion gap [Moles/Vol] 12 mmol/L Normal 7-20 [facility] Comment on above: Performed By: #### L [id number] ####[facility] (BEAKER)[address] [place] [address] Calcium [Mass/Vol] 8.3 mg/dL Low 8.6-10.3 [facility] Comment on above: Performed By: #### L [id number] ####[facility] (BEAKER)[address] [place] [address] Chloride [Moles/Vol] 109 mmol/L High 98-107 [facility] Comment on above: Performed By: #### L [id number] ####[facility] (BEAKER)[address] [place] [address] CO2 [Moles/Vol] 21 mmol/L Normal 21-31 [facility] Comment on above: Performed By: #### L [id number] ####[facility] (BEAKER)[address] [place] [address] Creatinine [Mass/Vol] 0.70 mg/dL Normal 0.70-1.30 [facility] Comment on above: Performed By: #### L [id number] ####[facility] ([facility])[address] [place] [address] GLOMERULAR FILTRATION RATE ML/MIN/1.73 SQ M.PREDICTED 99.7 mL/min/1.73m*2 Normal >60.0 [facility] Comment on above: Result Comment: The [facility]???s estimated glomerular filtration rate (eGFR) will no [...] of individuals. Performed By: #### L [id number] ####[facility] ([facility])[address] [address] Glucose [Mass/Vol] 104 mg/dL High 70-100 [facility] Comment on above: Performed By: #### L [id number] ####[facility] ([facility])[address] [place] [address] Potassium [Moles/Vol] 3.7 mmol/L Normal 3.5-5.1 [facility] Comment on above: Performed By: #### L [id number] ####[facility] ([facility])[address] [place] [address] Sodium [Moles/Vol] 138 mmol/L Normal 136-145 [facility] Comment on above: Performed By: #### L [id number] ####[facility] ([facility])[address] [place] [address] Urea nitrogen [Mass/Vol] 15 mg/dL Normal 7-25 [facility] Comment on above: Performed By: #### L [id number] ####[facility] ([facility])[address] [place] [address] UREA NITROGEN/CREATININ E (MASS RATIO) IN SER/PLAS 21.4 Normal [facility] Comment on above: Performed By: #### L [id number] ####[facility] ([facility])[address] [place] [address] CBCon 04-30-2023 Erythrocyte distribution width (RBC) [Ratio] 13.8 % Normal 11.5-15.0 [facility] Comment on above: Performed By: #### L [id number] ####[facility] ([facility])[address] [place] [address] ERYTHROCYTE MEAN CORPUSCULAR HEMOGLOBIN CONCENTRATION (G/DL) BY AUTOMATED 32.6 g/dL Normal 32.0-35.0 [facility] Comment on above: Performed By: #### L [id number] ####[facility] ([facility])[address] [place] [address] Hematocrit (Bld) [Volume fraction] 27.3 % Low 39.0-55.0 [facility] Comment on above: Performed By: #### L [id number] ####[facility] ([facility])[address] [place] [address] Hemoglobin (Bld) [Mass/Vol] 8.9 g/dL Low 13.0-17.0 [facility] Comment on above: Performed By: #### L [id number] ####[facility] ([facility])[address] [place] [address] MCH (RBC) [Entitic mass] 30.4 pg Normal 27.0-33.0 [facility] Comment on above: Performed By: #### L [id number] ####[facility] ([facility])[address] [place] [address] MCV (RBC) [Entitic vol] 93.2 fL Normal 82.0-98.0 [facility] Comment on above: Performed By: #### L [id number] ####[facility] ([facility])[address] [place] [address] PLATELETS (10*3/UL) IN BLOOD AUTOMATED COUNT 219 10*3/uL Normal 150-400 [facility] Comment on above: Performed By: #### L [id number] ####[facility] ([facility])[address] [place] [address] RBC (Bld) [#/Vol] 2.93 10*6/uL Low 4.20-5.70 [facility] Comment on above: Performed By: #### L [id number] ####[facility] ([facility])[address] [place] [address] WBC (Bld) [#/Vol] 6.80 10*3/uL Normal 4.00-10.60 [facility] Comment on above: Performed By: #### L [id number] ####[facility] ([facility])[address] [place] [address] MAGNESIUMon 04-30-2023 Magnesium [Mass/Vol] 1.7 mg/dL Low 1.9-2.7 [facility] Comment on above: Performed By: #### L [id number] ####[facility] ([facility])[address] [place] [address] PHOSPHORUSon 04-30-2023 Magnesium [Mass/Vol] 4.0 mg/dL Normal 2.5-5.0 [facility] Comment on above: Performed By: #### L [id number] ####[facility] ([facility])[address] [place] [address] POCT GLUCOSE METER UNSOLICIT ED RESULTSon 04-30-2023 Glucose [Mass/Vol] 123 mg/dL High 70-105 [facility] Comment on above: Order Comment: Waive d Testing in the ED is performed under the ED CLIA certificate #[id number]. Result Comment: [email or web address] Performed By: #### L [id number] ####[facility] ([facility])[address] [place] [address] Glucose [Mass/Vol] 138 mg/dL High 70-105 [facility] Comment on above: Order Comment: Waive d Testing in the ED is performed under the ED CLIA certificate #[id number]. Result Comment: [email or web address] Performed By: #### L [id number] ####[facility] (BEAKER)[address] [place] [address] 30on 04-29-2023 30 Normal [facility] 30 Normal [facility] 30 Normal [facility] BASIC METABOLIC PANELon 04-17 Anion gap [Moles/Vol] 11 mmol/L Normal 7-20 [facility] Comment on above: Performed By: #### L [id number] ####[facility] ([facility])[address] [place] [address] Calcium [Mass/Vol] 8.4 mg/dL Low 8.6-10.3 [facility] Comment on above: Performed By: #### L [id number] ####[facility] ([facility])[address] [place] [address] Chloride [Moles/Vol] 109 mmol/L High 98-107 [facility] Comment on above: Performed By: #### L [id number] ####[facility] ([facility])[address] [place] [address] CO2 [Moles/Vol] 20 mmol/L Low 21-31 [facility] Comment on above: Performed By: #### L [id number] ####[facility] ([facility])[address] [place] [address] Creatinine [Mass/Vol] 0.68 mg/dL Low 0.70-1.30 [facility] Comment on above: Performed By: #### L [id number] ####[facility] ([facility])[address] [place] [address] GLOMERULAR FILTRATION RATE ML/MIN/1.73 SQ M.PREDICTED 100.6 mL/min/1.73m*2 Normal >60.0 [facility] Comment on above: Result Comment: The [facility]???s estimated glomerular filtration rate (eGFR) will no [...] of individuals. Performed By: #### L [id number] ####[facility] ([facility])[address] [place] [address] Glucose [Mass/Vol] 100 mg/dL Normal 70-100 [facility] Comment on above: Performed By: #### L [id number] ####[facility] ([facility])[address] [place] [address] Potassium [Moles/Vol] 3.8 mmol/L Normal 3.5-5.1 [facility] Comment on above: Performed By: #### L [id number] ####[facility] ([facility])[address] [place] [address] Sodium [Moles/Vol] 136 mmol/L Normal 136-145 [facility] Comment on above: Performed By: #### L [id number] ####[facility] ([facility])[address] [place] [address] Urea nitrogen [Mass/Vol] 18 mg/dL Normal 7-25 [facility] Comment on above: Performed By: #### L [id number] ####[facility] ([facility])[address] [place] [address] UREA NITROGEN/CREATININ E (MASS RATIO) IN SER/PLAS 26.5 Normal [facility] Comment on above: Performed By: #### L [id number] ####[facility] ([facility])[address] [place] [address] CBCon 04-29-2023 Erythrocyte distribution width (RBC) [Ratio] 13.6 % Normal 11.5-15.0 [facility] Comment on above: Performed By: #### L [id number] ####[facility] ([facility])[address] [place] [address] ERYTHROCYTE MEAN CORPUSCULAR HEMOGLOBIN CONCENTRATION (G/DL) BY AUTOMATED 33.7 g/dL Normal 32.0-35.0 [facility] Comment on above: Performed By: #### L [id number] ####[facility] ([facility])[address] [place] [address] Hematocrit (Bld) [Volume fraction] 27.0 % Low 39.0-55.0 [facility] Comment on above: Performed By: #### L [id number] ####[facility] ([facility])[address] [place] [address] Hemoglobin (Bld) [Mass/Vol] 9.1 g/dL Low 13.0-17.0 [facility] Comment on above: Performed By: #### L [id number] ####[facility] ([facility])[address] [place] [address] MCH (RBC) [Entitic mass] 30.4 pg Normal 27.0-33.0 [facility] Comment on above: Performed By: #### L [id number] ####[facility] ([facility])[address] [place] [address] MCV (RBC) [Entitic vol] 90.3 fL Normal 82.0-98.0 [facility] Comment on above: Performed By: #### L [id number] ####[facility] ([facility])[address] [place] [address] PLATELETS (10*3/UL) IN BLOOD AUTOMATED COUNT 188 10*3/uL Normal 150-400 [facility] Comment on above: Performed By: #### L [id number] ####[facility] ([facility])[address] [place] [address] RBC (Bld) [#/Vol] 2.99 10*6/uL Low 4.20-5.70 [facility] Comment on above: Performed By: #### L [id number] ####[facility] ([facility])[address] [place] [address] WBC (Bld) [#/Vol] 7.24 10*3/uL Normal 4.00-10.60 [facility] Comment on above: Performed By: #### L [id number] ####[facility] ([facility])[address] [place] [address] CONSULTon 04-29-2023 CONSULT Normal [facility] MAGNESIUMon 04-29-2023 Magnesium [Mass/Vol] 1.7 mg/dL Low 1.9-2.7 [facility] Comment on above: Performed By: #### L [id number] ####[facility] ([facility])[address] [place] [address] PHOSPHORUSon 04-29-2023 Magnesium [Mass/Vol] 3.9 mg/dL Normal 2.5-5.0 [facility] Comment on above: Performed By: #### L [id number] ####[facility] ([facility])[address] [place] [address] POCT GLUCOSE METER UNSOLICIT ED RESULTSon 04-29-2023 Glucose [Mass/Vol] 111 mg/dL High 70-105 [facility] Comment on above: Order Comment: Waive d Testing in the ED is performed under the ED CLIA certificate #[id number]. Result Comment: [email or web address] Performed By: #### L [id number] ####[facility] ([facility])[address] [place] [address] Glucose [Mass/Vol] 133 mg/dL High 70-105 [facility] Comment on above: Order Comment: Waive d Testing in the ED is performed under the ED CLIA certificate #[id number]. Result Comment: [email or web address] Performed By: #### L [id number] ####[facility] ([facility])[address] [place] [address] Glucose [Mass/Vol] 128 mg/dL High 70-105 [facility] Comment on above: Order Comment: Waive d Testing in the ED is performed under the ED CLIA certificate #[id number]. Result Comment: [email or web address] Performed By: #### L [id number] ####[facility] ([facility])[address] [place] [address] 30on 04-28-2023 30 Normal [facility] BASIC METABOLIC PANELon 04-17 Anion gap [Moles/Vol] 10 mmol/L Normal 7-20 [facility] Comment on above: Performed By: #### L [id number] ####[facility] ([facility])[address] [place] [address] Calcium [Mass/Vol] 8.1 mg/dL Low 8.6-10.3 [facility] Comment on above: Performed By: #### L [id number] ####[facility] ([facility])[address] [place] [address] Chloride [Moles/Vol] 109 mmol/L High 98-107 [facility] Comment on above: Performed By: #### L [id number] ####[facility] ([facility])[address] [place] [address] CO2 [Moles/Vol] 22 mmol/L Normal 21-31 [facility] Comment on above: Performed By: #### L [id number] ####[facility] ([facility])[address] [place] [address] Creatinine [Mass/Vol] 0.62 mg/dL Low 0.70-1.30 [facility] Comment on above: Performed By: #### L [id number] ####[facility] ([facility])[address] [place] [address] GLOMERULAR FILTRATION RATE ML/MIN/1.73 SQ M.PREDICTED 103.5 mL/min/1.73m*2 Normal >60.0 [facility] Comment on above: Result Comment: The [facility]???s estimated glomerular filtration rate (eGFR) will no [...] of individuals. Performed By: #### L [id number] ####[facility] ([facility])[address] [place] [address] Glucose [Mass/Vol] 102 mg/dL High 70-100 [facility] Comment on above: Performed By: #### L [id number] ####[facility] ([facility])[address] [place] [address] Potassium [Moles/Vol] 3.4 mmol/L Low 3.5-5.1 [facility] Comment on above: Performed By: #### L [id number] ####[facility] ([facility])[address] [place] [address] Sodium [Moles/Vol] 138 mmol/L Normal 136-145 [facility] Comment on above: Performed By: #### L [id number] ####[facility] ([facility])[address] [place] [address] Urea nitrogen [Mass/Vol] 22 mg/dL Normal 7-25 [facility] Comment on above: Performed By: #### L [id number] ####[facility] ([facility])[address] [place] [address] UREA NITROGEN/CREATININ E (MASS RATIO) IN SER/PLAS 35.5 Normal [facility] Comment on above: Performed By: #### L [id number] ####[facility] ([facility])[address] [place] [address] CBC WITH AUTO DIFFERENTIALon 04-28-2023 Basophils (Bld) [#/Vol] 0.02 10*3/uL Normal 0.00-0.20 [facility] Comment on above: Performed By: #### L [id number] ####[facility] ([facility])[address] [place] [address] Basophils/100 WBC (Bld) 0.2 % Normal 0.0-1.0 [facility] Comment on above: Performed By: #### L [id number] ####[facility] ([facility])[address] [place] [address] Eosinophils (Bld) [#/Vol] 0.09 10*3/uL Normal 0.00-0.50 [facility] Comment on above: Performed By: #### L [id number] ####[facility] ([facility])[address] [place] [address] Eosinophils/100 WBC (Bld) 1.1 % Normal 0.0-6.0 [facility] Comment on above: Performed By: #### L [id number] ####[facility] ([facility])[address] [place] [address] Erythrocyte distribution width (RBC) [Ratio] 13.6 % Normal 11.5-15.0 [facility] Comment on above: Performed By: #### L [id number] ####[facility] ([facility])[address] [place] [address] ERYTHROCYTE MEAN CORPUSCULAR HEMOGLOBIN CONCENTRATION (G/DL) BY AUTOMATED 33.1 g/dL Normal 32.0-35.0 [facility] Comment on above: Performed By: #### L [id number] ####[facility] ([facility])[address] [place] [address] Hematocrit (Bld) [Volume fraction] 32.3 % Low 39.0-55.0 [facility] Comment on above: Performed By: #### L [id number] ####[facility] ([facility])[address] [place] [address] Hemoglobin (Bld) [Mass/Vol] 10.7 g/dL Low 13.0-17.0 [facility] Comment on above: Performed By: #### L [id number] ####[facility] ([facility])[address] [place] [address] Immature granulocytes (Bld) [#/Vol] 0.06 10*3/uL Normal 0.00-0.20 [facility] Comment on above: Performed By: #### L [id number] ####[facility] ([facility])[address] [place] [address] Immature granulocytes/100 WBC (Bld) 0.7 % Normal 0.0-1.0 [facility] Comment on above: Performed By: #### L [id number] ####[facility] ([facility])[address] [place] [address] Lymphocytes (Bld) [#/Vol] 1.82 10*3/uL Normal 1.20-4.00 [facility] Comment on above: Performed By: #### L [id number] ####[facility] ([facility])[address] [place] [address] Lymphocytes/100 WBC (Bld) 22.2 % Normal 20.0-45.0 [facility] Comment on above: Performed By: #### L [id number] ####[facility] ([facility])[address] [place] [address] MCH (RBC) [Entitic mass] 30.3 pg Normal 27.0-33.0 [facility] Comment on above: Performed By: #### L [id number] ####[facility] ([facility])[address] [place] [address] MCV (RBC) [Entitic vol] 91.5 fL Normal 82.0-98.0 [facility] Comment on above: Performed By: #### L [id number] ####[facility] ([facility])[address] [place] [address] Monocytes (Bld) [#/Vol] 0.67 10*3/uL Normal 0.10-1.00 [facility] Comment on above: Performed By: #### L [id number] ####[facility] ([facility])[address] [place] [address] Monocytes/100 WBC (Bld) 8.2 % Normal 5.0-12.0 [facility] Comment on above: Performed By: #### L [id number] ####[facility] ([facility])[address] [place] [address] Neutrophils (Bld) [#/Vol] 5.55 10*3/uL Normal 1.60-7.60 [facility] Comment on above: Performed By: #### L [id number] ####[facility] ([facility])[address] [address] Neutrophils/100 WBC (Bld) 67.6 % Normal 40.0-72.0 [facility] Comment on above: Performed By: #### L [id number] ####[facility] ([facility])[address] [place] [address] NRBC (PER 100 WBCS) BY AUTOMATED COUNT 0.0 % Normal 0 [facility] Comment on above: Performed By: #### L [id number] ####[facility] ([facility])[address] [place] [address] PLATELETS (10*3/UL) IN BLOOD AUTOMATED COUNT 160 10*3/uL Normal 150-400 [facility] Comment on above: Performed By: #### L [id number] ####[facility] ([facility])[address] [address] RBC (Bld) [#/Vol] 3.53 10*6/uL Low 4.20-5.70 [facility] Comment on above: Performed By: #### L [id number] ####[facility] ([facility])[address] [address] WBC (Bld) [#/Vol] 8.21 10*3/uL Normal 4.00-10.60 [facility] Comment on above: Performed By: #### L [id number] ####[facility] ([facility])[address] [place] [address] MAGNESIUMon 04-28-2023 Magnesium [Mass/Vol] 1.7 mg/dL Low 1.9-2.7 [facility] Comment on above: Performed By: #### L [id number] ####[facility] ([facility])[address] [place] [address] PHOSPHORUSon 04-28-2023 Magnesium [Mass/Vol] 3.9 mg/dL Normal 2.5-5.0 [facility] Comment on above: Performed By: #### L [id number] ####[facility] ([facility])[address] [place] [address] POCT GLUCOSE METER UNSOLICIT ED RESULTSon 04-28-2023 Glucose [Mass/Vol] 111 mg/dL High 70-105 [facility] Comment on above: Order Comment: Waive d Testing in the ED is performed under the ED CLIA certificate #[id number]. Result Comment: [email or web address] Performed By: #### L [id number] ####[facility] ([facility])[address] [place] [address] Glucose [Mass/Vol] 86 mg/dL Normal 70-105 [facility] Comment on above: Order Comment: Waive d Testing in the ED is performed under the ED CLIA certificate #[id number]. Result Comment: mitra shea Performed By: #### L [id number] ####[facility] ([facility])[address] [place] [address] Glucose [Mass/Vol] 159 mg/dL High 70-105 [facility] Comment on above: Order Comment: Waive d Testing in the ED is performed under the ED CLIA certificate #[id number]. Result Comment: mitra shea Performed By: #### L [id number] ####[facility] ([facility])[address] [place] [address] Glucose [Mass/Vol] 109 mg/dL High 70-105 [facility] Comment on above: Order Comment: Waive d Testing in the ED is performed under the ED CLIA certificate #[id number]. Result Comment: [email or web address] Performed By: #### L [id number] ####[facility] ([facility])[address] [place] [address] BASIC METABOLIC PANELon 04-17 Anion gap [Moles/Vol] 11 mmol/L Normal 7-20 [facility] Comment on above: Performed By: #### L [id number] ####[facility] ([facility])[address] [place] [address] Calcium [Mass/Vol] 8.2 mg/dL Low 8.6-10.3 [facility] Comment on above: Performed By: #### L [id number] ####[facility] ([facility])[address] [place] [address] Chloride [Moles/Vol] 112 mmol/L High 98-107 [facility] Comment on above: Performed By: #### L [id number] ####[facility] ([facility])[address] [place] [address] CO2 [Moles/Vol] 23 mmol/L Normal 21-31 [facility] Comment on above: Performed By: #### L [id number] ####[facility] ([facility])[address] [place] [address] Creatinine [Mass/Vol] 0.64 mg/dL Low 0.70-1.30 [facility] Comment on above: Performed By: #### L [id number] ####[facility] ([facility])[address] [place] [address] GLOMERULAR FILTRATION RATE ML/MIN/1.73 SQ M.PREDICTED 102.5 mL/min/1.73m*2 Normal >60.0 [facility] Comment on above: Result Comment: The [facility]???s estimated glomerular filtration rate (eGFR) will no [...] of individuals. Performed By: #### L [id number] ####[facility] ([facility])[address] [place] [address] Glucose [Mass/Vol] 116 mg/dL High 70-100 [facility] Comment on above: Performed By: #### L [id number] ####[facility] ([facility])[address] [place] [address] Potassium [Moles/Vol] 3.9 mmol/L Normal 3.5-5.1 [facility] Comment on above: Performed By: #### L [id number] ####[facility] ([facility])[address] [place] [address] Sodium [Moles/Vol] 142 mmol/L Normal 136-145 [facility] Comment on above: Performed By: #### L [id number] ####[facility] ([facility])[address] [place] [address] Urea nitrogen [Mass/Vol] 22 mg/dL Normal 7-25 [facility] Comment on above: Performed By: #### L [id number] ####[facility] ([facility])[address] [place] [address] UREA NITROGEN/CREATININ E (MASS RATIO) IN SER/PLAS 34.4 Normal [facility] Comment on above: Performed By: #### L [id number] ####[facility] ([facility])[address] [place] [address] CBC WITH AUTO DIFFERENTIALon 04-27-2023 Basophils (Bld) [#/Vol] 0.02 10*3/uL Normal 0.00-0.20 [facility] Comment on above: Performed By: #### L [id number] ####[facility] ([facility])[address] [place] [address] Basophils/100 WBC (Bld) 0.2 % Normal 0.0-1.0 [facility] Comment on above: Performed By: #### L [id number] ####[facility] ([facility])[address] [place] [address] Eosinophils (Bld) [#/Vol] 0.05 10*3/uL Normal 0.00-0.50 [facility] Comment on above: Performed By: #### L [id number] ####[facility] ([facility])[address] [place] [address] Eosinophils/100 WBC (Bld) 0.5 % Normal 0.0-6.0 [facility] Comment on above: Performed By: #### L [id number] ####[facility] ([facility])[address] [place] [address] Erythrocyte distribution width (RBC) [Ratio] 13.6 % Normal 11.5-15.0 [facility] Comment on above: Performed By: #### L [id number] ####[facility] ([facility])[address] [place] [address] ERYTHROCYTE MEAN CORPUSCULAR HEMOGLOBIN CONCENTRATION (G/DL) BY AUTOMATED 33.7 g/dL Normal 32.0-35.0 [facility] Comment on above: Performed By: #### L [id number] ####[facility] ([facility])[address] [place] [address] Hematocrit (Bld) [Volume fraction] 26.4 % Low 39.0-55.0 [facility] Comment on above: Performed By: #### L [id number] ####[facility] ([facility])[address] [place] [address] Hemoglobin (Bld) [Mass/Vol] 8.9 g/dL Low 13.0-17.0 [facility] Comment on above: Performed By: #### L [id number] ####[facility] ([facility])[address] [place] [address] Immature granulocytes (Bld) [#/Vol] 0.07 10*3/uL Normal 0.00-0.20 [facility] Comment on above: Performed By: #### L [id number] ####[facility] ([facility])[address] [place] [address] Immature granulocytes/100 WBC (Bld) 0.8 % Normal 0.0-1.0 [facility] Comment on above: Performed By: #### L [id number] ####[facility] ([facility])[address] [place] [address] Lymphocytes (Bld) [#/Vol] 1.24 10*3/uL Normal 1.20-4.00 [facility] Comment on above: Performed By: #### L [id number] ####[facility] ([facility])[address] [place] [address] Lymphocytes/100 WBC (Bld) 13.3 % Low 20.0-45.0 [facility] Comment on above: Performed By: #### L [id number] ####[facility] ([facility])[address] [place] [address] MCH (RBC) [Entitic mass] 30.5 pg Normal 27.0-33.0 [facility] Comment on above: Performed By: #### L [id number] ####[facility] ([facility])[address] [place] [address] MCV (RBC) [Entitic vol] 90.4 fL Normal 82.0-98.0 [facility] Comment on above: Performed By: #### L [id number] ####[facility] ([facility])[address] [place] [address] Monocytes (Bld) [#/Vol] 0.72 10*3/uL Normal 0.10-1.00 [facility] Comment on above: Performed By: #### L [id number] ####[facility] ([facility])[address] [place] [address] Monocytes/100 WBC (Bld) 7.7 % Normal 5.0-12.0 [facility] Comment on above: Performed By: #### L [id number] ####[facility] ([facility])[address] [place] [address] Neutrophils (Bld) [#/Vol] 7.22 10*3/uL Normal 1.60-7.60 [facility] Comment on above: Performed By: #### L [id number] ####[facility] ([facility])[address] [place] [address] Neutrophils/100 WBC (Bld) 77.5 % High 40.0-72.0 [facility] Comment on above: Performed By: #### L [id number] ####[facility] ([facility])[address] [place] [address] NRBC (PER 100 WBCS) BY AUTOMATED COUNT 0.0 % Normal 0 [facility] Comment on above: Performed By: #### L [id number] ####[facility] ([facility])[address] [address] PLATELETS (10*3/UL) IN BLOOD AUTOMATED COUNT 100 10*3/uL Low 150-400 [facility] Comment on above: Performed By: #### L [id number] ####[facility] ([facility])[address] [place] [address] RBC (Bld) [#/Vol] 2.92 10*6/uL Low 4.20-5.70 [facility] Comment on above: Performed By: #### L [id number] ####[facility] ([facility])[address] [place] [address] WBC (Bld) [#/Vol] 9.32 10*3/uL Normal 4.00-10.60 [facility] Comment on above: Performed By: #### L [id number] ####[facility] ([facility])[address] [place] [address] MAGNESIUMon 04-27-2023 Magnesium [Mass/Vol] 1.9 mg/dL Normal 1.9-2.7 [facility] Comment on above: Performed By: #### L [id number] ####[facility] ([facility])[address] [place] [address] PHOSPHORUSon 04-27-2023 Magnesium [Mass/Vol] 3.5 mg/dL Normal 2.5-5.0 [facility] Comment on above: Performed By: #### L [id number] ####[facility] ([facility])[address] [place] [address] POCT GLUCOSE METER UNSOLICIT ED RESULTSon 04-27-2023 Glucose [Mass/Vol] 100 mg/dL Normal 70-105 [facility] Comment on above: Order Comment: Waive d Testing in the ED is performed under the ED CLIA certificate #[id number]. Result Comment: afin [email or web address] Performed By: #### L [id number] ####[facility] ([facility])[address] [place] [address] Glucose [Mass/Vol] 165 mg/dL High 70-105 [facility] Comment on above: Order Comment: Waive d Testing in the ED is performed under the ED CLIA certificate #[id number]. Result Comment: mitra shea Performed By: #### L [id number] ####[facility] ([employer])[address] [place] [address] Glucose [Mass/Vol] 157 mg/dL High 70-105 [facility] Comment on above: Order Comment: Waive d Testing in the ED is performed under the ED CLIA certificate #[id number]. Result Comment: mitra shea Performed By: #### L [id number] ####[facility] ([facility])[address] [place] [address] Glucose [Mass/Vol] 112 mg/dL High 70-105 [facility] Comment on above: Order Comment: Waive d Testing in the ED is performed under the ED CLIA certificate #[id number]. Result Comment: [email or web address] [email or web address] Performed By: #### L [id number] ####[facility] ([facility])[address] [place] [address] PROTIME-INRon 04-27-2023 INR IN PPP BY COAGULATION ASSAY 1.21 High 0.90-1.10 [facility] Comment on above: Result Comment: ACCC P [...] CHEST 1995;[id number]. Performed By: #### L [id number] ####[facility] ([employer])[address] [place] [address] PROTHROMBIN TIME (PT) IN PPP BY COAGULATION ASSAY 15.3 Seconds High 12.3-14.8 [facility] Comment on above: Performed By: #### L [id number] ####[facility] ([facility])[address] [place] [address] 30on 04-26-2023 30 Normal [facility] 30 Normal [facility] 30 Normal [facility] 30 Normal [facility] BASIC METABOLIC PANELon 11-1 Anion gap [Moles/Vol] 10 mmol/L Normal 7-20 [facility] Comment on above: Performed By: #### L [id number] ####[facility] ([facility])[address] [place] [address] Calcium [Mass/Vol] 8.5 mg/dL Low 8.6-10.3 [facility] Comment on above: Performed By: #### L [id number] ####[facility] ([facility])[address] [place] [address] Chloride [Moles/Vol] 109 mmol/L High 98-107 [facility] Comment on above: Performed By: #### L [id number] ####[facility] ([facility])[address] [place] [address] CO2 [Moles/Vol] 25 mmol/L Normal 21-31 [facility] Comment on above: Performed By: #### L [id number] ####[facility] ([facility])[address] [place] [address] Creatinine [Mass/Vol] 0.62 mg/dL Low 0.70-1.30 [facility] Comment on above: Performed By: #### L [id number] ####[facility] ([facility])[address] [place] [address] GLOMERULAR FILTRATION RATE ML/MIN/1.73 SQ M.PREDICTED 103.5 mL/min/1.73m*2 Normal >60.0 [facility] Comment on above: Result Comment: The [facility]???s estimated glomerular filtration rate (eGFR) will no [...] of individuals. Performed By: #### L [id number] ####[facility] ([facility])[address] [place] [address] Glucose [Mass/Vol] 136 mg/dL High 70-100 [facility] Comment on above: Performed By: #### L [id number] ####[facility] ([facility])[address] [place] [address] Potassium [Moles/Vol] 3.6 mmol/L Normal 3.5-5.1 [facility] Comment on above: Performed By: #### L [id number] ####[facility] ([facility])[address] [place] [address] Sodium [Moles/Vol] 140 mmol/L Normal 136-145 [facility] Comment on above: Performed By: #### L [id number] ####[facility] ([facility])[address] [place] [address] Urea nitrogen [Mass/Vol] 18 mg/dL Normal 7-25 [facility] Comment on above: Performed By: #### L [id number] ####[facility] (BEAKER)[address] [place] [address] UREA NITROGEN/CREATININ E (MASS RATIO) IN SER/PLAS 29.0 Normal [facility] Comment on above: Performed By: #### L [id number] ####[facility] (BEAKER)[address] [place] [address] Anion gap [Moles/Vol] 9 mmol/L Normal 7-20 [facility] Comment on above: Performed By: #### L [id number] ####[facility] (BEAKER)[address] [place] [address] Calcium [Mass/Vol] 7.8 mg/dL Low 8.6-10.3 [facility] Comment on above: Performed By: #### L [id number] ####[facility] (BEAKER)[address] [place] [address] Chloride [Moles/Vol] 112 mmol/L High 98-107 [facility] Comment on above: Performed By: #### L [id number] ####[facility] (BEAKER)[address] [place] [address] CO2 [Moles/Vol] 23 mmol/L Normal 21-31 [facility] Comment on above: Performed By: #### L [id number] ####[facility] (BEAKER)[address] [place] [address] Creatinine [Mass/Vol] 0.61 mg/dL Low 0.70-1.30 [facility] Comment on above: Performed By: #### L [id number] ####[facility] (BEAKER)[address] [place] [address] GLOMERULAR FILTRATION RATE ML/MIN/1.73 SQ M.PREDICTED 104.0 mL/min/1.73m*2 Normal >60.0 [facility] Comment on above: Result Comment: The [facility]???s estimated glomerular filtration rate (eGFR) will no [...] of individuals. Performed By: #### L [id number] ####[facility] ([facility])[address] [place] [address] Glucose [Mass/Vol] 112 mg/dL High 70-100 [facility] Comment on above: Performed By: #### L [id number] ####[facility] ([facility])[address] [place] [address] Potassium [Moles/Vol] 3.4 mmol/L Low 3.5-5.1 [facility] Comment on above: Performed By: #### L [id number] ####[facility] ([facility])[address] [place] [address] Sodium [Moles/Vol] 141 mmol/L Normal 136-145 [facility] Comment on above: Performed By: #### L [id number] ####[facility] ([facility])[address] [place] [address] Urea nitrogen [Mass/Vol] 14 mg/dL Normal 7-25 [facility] Comment on above: Performed By: #### L [id number] ####[facility] ([facility])[address] [place] [address] UREA NITROGEN/CREATININ E (MASS RATIO) IN SER/PLAS 23.0 Normal [facility] Comment on above: Performed By: #### L [id number] ####[facility] ([facility])[address] [place] [address] CBCon 04-26-2023 Erythrocyte distribution width (RBC) [Ratio] 13.9 % Normal 11.5-15.0 [facility] Comment on above: Performed By: #### L [id number] ####[facility] ([facility] [place] [address] ERYTHROCYTE MEAN CORPUSCULAR HEMOGLOBIN CONCENTRATION (G/DL) BY AUTOMATED 33.7 g/dL Normal 32.0-35.0 [facility] Comment on above: Performed By: #### L [id number] ####[facility] ([facility])[address] [place] [address] Hematocrit (Bld) [Volume fraction] 24.3 % Low 39.0-55.0 [facility] Comment on above: Performed By: #### L [id number] ####[facility] (BEAKER)[address] [place] [address] Hemoglobin (Bld) [Mass/Vol] 8.2 g/dL Low 13.0-17.0 [facility] Comment on above: Performed By: #### L [id number] ####[facility] (BEAKER)[address] [place] [address] IMMATURE PLATELET FRACTION % 4.3 % Normal 0.8-6.3 [facility] Comment on above: Performed By: #### L [id number] ####[facility] (BEAKER)[address] [place] [address] MCH (RBC) [Entitic mass] 30.4 pg Normal 27.0-33.0 [facility] Comment on above: Performed By: #### L [id number] ####[facility] (BEAKER)[address] [place] [address] MCV (RBC) [Entitic vol] 90.0 fL Normal 82.0-98.0 [facility] Comment on above: Performed By: #### L [id number] ####[facility] (BEAKER)[address] [place] [address] PLATELETS (10*3/UL) IN BLOOD AUTOMATED COUNT 71 10*3/uL Low 150-400 [facility] Comment on above: Performed By: #### L [id number] ####[facility] ([facility])[address] [place] [address] RBC (Bld) [#/Vol] 2.70 10*6/uL Low 4.20-5.70 [facility] Comment on above: Performed By: #### L [id number] ####[facility] ([facility])[address] [place] [address] WBC (Bld) [#/Vol] 7.74 10*3/uL Normal 4.00-10.60 [facility] Comment on above: Performed By: #### L [id number] ####[facility] ([facility])[address] [place] [address] CO-OXIMETRYon 04-26-2023 CARBOXYHEMOGLOBIN/ HEMOGLOBIN TOTAL % IN BLOOD 1.4 % Normal [facility] Comment on above: Performed By: #### L [id number] ####[facility] [id number] [place] [address] [place] Hemoglobin (Bld) [Mass/Vol] 8.5 g/dL Normal [facility] Comment on above: Performed By: #### L [id number] ####[facility] [id number] [place] [address] [place] METHEMOGLOBIN/100 IN BLOOD 0.3 % Normal 0.0-1.5 [facility] Comment on above: Performed By: #### L [id number] ####[facility] [id number] [place] [address] [place] Oxygen saturation in Blood 57.1 % Normal [facility] Comment on above: Performed By: #### L [id number] ####[facility] [id number] [facility] [place] [address] [place] OXYGENATED HEMOGLOBIN IN BLOOD 56.1 % Normal [facility] Comment on above: Performed By: #### L [id number] ####[facility] [id number] [place] [address] [place] IRON AND TIBCon 04-26-2023 IRON (UG/DL) IN SER/PLAS 16 ug/dL Low 50-212 [facility] Comment on above: Performed By: #### L [id number] ####[facility] (BEAKER)[address] [place] [address] IRON BINDING CAPACITY (UG/DL) IN SER/PLAS 143 ug/dL Low 250-450 [facility] Comment on above: Performed By: #### L [id number] ####[facility] (BEAKER)[address] [place] [address] IRON BINDING CAPACITY.UNSATURAT ED (UG/DL) IN SER/PLAS 127.0 ug/dL Low 155.0-355.0 [facility] Comment on above: Performed By: #### L [id number] ####[facility] (BEAKER)[address] [place] [address] IRON SATURATION (%) IN SER/PLAS 11 % Low 20-50 [facility] Comment on above: Performed By: #### L [id number] ####[facility] (BEAKER)[address] [place] [address] LACTIC ACID, PLASMAon 2022 LACTATE (MMOL/L) IN SER/PLAS 0.6 mmol/L Normal 0.5-2.2 [facility] Comment on above: Performed By: #### L [id number] ####[facility] (BEAKER)[address] [place] [address] MAGNESIUMon 04-26-2023 Magnesium [Mass/Vol] 1.6 mg/dL Low 1.9-2.7 [facility] Comment on above: Performed By: #### L [id number] ####[facility] (BEAKER)[address] [place] [address] Magnesium [Mass/Vol] 1.7 mg/dL Low 1.9-2.7 [facility] Comment on above: Performed By: #### L [id number] ####[facility] (BEAKER)[address] [place] [address] PHOSPHORUSon 04-26-2023 Magnesium [Mass/Vol] 3.4 mg/dL Normal 2.5-5.0 [facility] Comment on above: Performed By: #### L [id number] ####[facility] ([facility])[address] [place] [address] Magnesium [Mass/Vol] 3.7 mg/dL Normal 2.5-5.0 [facility] Comment on above: Performed By: #### L [id number] ####[facility] ([facility])[address] [place] [address] POCT GLUCOSE METER UNSOLICIT ED RESULTSon 04-26-2023 Glucose [Mass/Vol] 134 mg/dL High 70-105 [facility] Comment on above: Order Comment: Waive d Testing in the ED is performed under the ED CLIA certificate #[id number]. Result Comment: [email or web address] Performed By: #### L [id number] ####[facility] ([facility])[address] [place] [address] Glucose [Mass/Vol] 129 mg/dL High 70-105 [facility] Comment on above: Order Comment: Waive d Testing in the ED is performed under the ED CLIA certificate #[id number]. Result Comment: [email or web address] Performed By: #### L [id number] ####[facility] ([facility])[address] [place] [address] Glucose [Mass/Vol] 121 mg/dL High 70-105 [facility] Comment on above: Order Comment: Waive d Testing in the ED is performed under the ED CLIA certificate #[id number]. Result Comment: than sen2 Performed By: #### L [id number] ####[facility] ([facility])[address] [place] [address] Glucose [Mass/Vol] 113 mg/dL High 70-105 [facility] Comment on above: Order Comment: Waive d Testing in the ED is performed under the ED CLIA certificate #[id number]. Result Comment: than sen2 Performed By: #### L [id number] ####[facility] ([facility])[address] [place] [address] PREALBUMINon 04-26-2023 Prealbumin [Mass/Vol] 6.4 mg/dL Normal [facility] Comment on above: Performed By: #### L [id number] ####[facility] ([facility])[address] [place] [address] TRANSFERRINon 04-26-2023 Magnesium [Mass/Vol] 82 mg/dL Low 168-348 [facility] Comment on above: Performed By: #### L [id number] ####[facility] ([facility])[address] [place] [address] 30on 04-25-2023 30 Normal [facility] AMMONIAon 04-25-2023 AMMONIA (UMOL/L) IN PLASMA 39 umol/L Normal 18-72 [facility] Comment on above: Performed By: #### L [id number] ####[facility] ([facility])[address] [place] [address] APTTon 04-25-2023 ACTIVATED PARTIAL THROMBOPLASTIN TIME IN PPP BY COAGULATION ASSAY 37.2 Seconds High 25.0-35.0 [facility] Comment on above: Result Comment: Clin ical significance of the APTT is questionable in the presence of heparin. Performed By: #### L [id number] ####[facility] ([facility])[address] [place] [address] BASIC METABOLIC PANELon 110 Anion gap [Moles/Vol] 9 mmol/L Normal 7-20 [facility] Comment on above: Performed By: #### L [id number] ####[facility] ([facility])[address] [facility] [place] [address] Calcium [Mass/Vol] 8.2 mg/dL Low 8.6-10.3 [facility] Comment on above: Performed By: #### L [id number] ####[facility] ([facility])[address] [place] [address] Chloride [Moles/Vol] 111 mmol/L High 98-107 [facility] Comment on above: Performed By: #### L [id number] ####[facility] (BEAKER)[address] [place] [address] CO2 [Moles/Vol] 24 mmol/L Normal 21-31 [facility] Comment on above: Performed By: #### L [id number] ####[facility] (BEAKER)[address] [place] [address] Creatinine [Mass/Vol] 0.71 mg/dL Normal 0.70-1.30 [facility] Comment on above: Performed By: #### L [id number] ####[facility] (BEAKER)[address] [place] [address] GLOMERULAR FILTRATION RATE ML/MIN/1.73 SQ M.PREDICTED 99.3 mL/min/1.73m*2 Normal >60.0 [facility] Comment on above: Result Comment: The [facility]???s estimated glomerular filtration rate (eGFR) will no [...] of individuals. Performed By: #### L [id number] ####[facility] (BEAKER)[address] [place] [address] Glucose [Mass/Vol] 124 mg/dL High 70-100 [facility] Comment on above: Performed By: #### L [id number] ####[facility] (BEAKER)[address] [place] [address] Potassium [Moles/Vol] 3.9 mmol/L Normal 3.5-5.1 [facility] Comment on above: Performed By: #### L [id number] ####[facility] (BEAKER)[address] [place] [address] Sodium [Moles/Vol] 140 mmol/L Normal 136-145 [facility] Comment on above: Performed By: #### L [id number] ####[facility] ([facility])[address] [place] [address] Urea nitrogen [Mass/Vol] 17 mg/dL Normal 7-25 [facility] Comment on above: Performed By: #### L [id number] ####[facility] ([facility])[address] [place] [address] UREA NITROGEN/CREATININ E (MASS RATIO) IN SER/PLAS 23.9 Normal [facility] Comment on above: Performed By: #### L [id number] ####[facility] ([facility])[address] [place] [address] CBCon 04-25-2023 Erythrocyte distribution width (RBC) [Ratio] 14.0 % Normal 11.5-15.0 [facility] Comment on above: Performed By: #### L [id number] ####[facility] ([facility])[address] [place] [address] ERYTHROCYTE MEAN CORPUSCULAR HEMOGLOBIN CONCENTRATION (G/DL) BY AUTOMATED 34.1 g/dL Normal 32.0-35.0 [facility] Comment on above: Performed By: #### L [id number] ####[facility] ([facility])[address] [place] [address] Hematocrit (Bld) [Volume fraction] 24.9 % Low 39.0-55.0 [facility] Comment on above: Performed By: #### L [id number] ####[facility] ([facility])[address] [place] [address] Hemoglobin (Bld) [Mass/Vol] 8.5 g/dL Low 13.0-17.0 [facility] Comment on above: Performed By: #### L [id number] ####[facility] ([facility])[address] [place] [address] IMMATURE PLATELET FRACTION % 5.1 % Normal 0.8-6.3 [facility] Comment on above: Performed By: #### L [id number] ####[facility] ([facility])[address] [address] MCH (RBC) [Entitic mass] 30.7 pg Normal 27.0-33.0 [facility] Comment on above: Performed By: #### L [id number] ####[facility] ([facility])[address] [address] MCV (RBC) [Entitic vol] 89.9 fL Normal 82.0-98.0 [facility] Comment on above: Performed By: #### L [id number] ####[facility] ([facility])[address] [address] PLATELETS (10*3/UL) IN BLOOD AUTOMATED COUNT 55 10*3/uL Low 150-400 [facility] Comment on above: Performed By: #### L [id number] ####[facility] ([facility])[address] [place] [address] RBC (Bld) [#/Vol] 2.77 10*6/uL Low 4.20-5.70 [facility] Comment on above: Performed By: #### L [id number] ####[facility] ([facility])[address] [address] WBC (Bld) [#/Vol] 9.29 10*3/uL Normal 4.00-10.60 [facility] Comment on above: Performed By: #### L [id number] ####[facility] ([facility])[address] [place] [address] Erythrocyte distribution width (RBC) [Ratio] 14.6 % Normal 11.5-15.0 [facility] Comment on above: Performed By: #### L [id number] ####[facility] ([facility])[address], [place] [address] ERYTHROCYTE MEAN CORPUSCULAR HEMOGLOBIN CONCENTRATION (G/DL) BY AUTOMATED 34.1 g/dL Normal 32.0-35.0 [facility] Comment on above: Performed By: #### L [id number] ####[facility] (BEAKER)[address] [place] [address] Hematocrit (Bld) [Volume fraction] 25.5 % Low 39.0-55.0 [facility] Comment on above: Performed By: #### L [id number] ####[facility] (BEAKER)[address] [place] [address] Hemoglobin (Bld) [Mass/Vol] 8.7 g/dL Low 13.0-17.0 [facility] Comment on above: Performed By: #### L [id number] ####[facility] (BEAKER)[address] [place] [address] IMMATURE PLATELET FRACTION % 5.5 % Normal 0.8-6.3 [facility] Comment on above: Performed By: #### L [id number] ####[facility] (BEAKER)[address] [place] [address] MCH (RBC) [Entitic mass] 31.0 pg Normal 27.0-33.0 [facility] Comment on above: Performed By: #### L [id number] ####[facility] (BEAKER)[address] [place] [address] MCV (RBC) [Entitic vol] 90.7 fL Normal 82.0-98.0 [facility] Comment on above: Performed By: #### L [id number] ####[facility] (BEAKER)[address] [place] [address] PLATELETS (10*3/UL) IN BLOOD AUTOMATED COUNT 56 10*3/uL Low 150-400 [facility] Comment on above: Result Comment: P=69 , 1D Performed By: #### L [id number] ####[facility] (BEAKER)[address] [place] [address] RBC (Bld) [#/Vol] 2.81 10*6/uL Low 4.20-5.70 [facility] Comment on above: Performed By: #### L [id number] ####[facility] (BEAKER)[address] [place] [address] WBC (Bld) [#/Vol] 10.33 10*3/uL Normal 4.00-10.60 [facility] Comment on above: Performed By: #### L [id number] ####[facility] ([facility])[address] [place] [address] CO-OXIMETRYon 04-25-2023 CARBOXYHEMOGLOBIN/ HEMOGLOBIN TOTAL % IN BLOOD 0.8 % Normal [facility] Comment on above: Performed By: #### L [id number] ####[facility]PIR[facility] [id number] [place] [address] [place] Hemoglobin (Bld) [Mass/Vol] 7.8 g/dL Normal [facility] Comment on above: Performed By: #### L [id number] ####[facility] RESPIRATORY [id number] [place] [address] [place] METHEMOGLOBIN/100 IN BLOOD 1.1 % Normal 0.0-1.5 [facility] Comment on above: Performed By: #### L [id number] ####[facility] RESPIRATORY [id number] [place] [address] [place] Oxygen saturation in Blood 70.2 % Normal [facility] Comment on above: Performed By: #### L [id number] ####[facility] RESPIRATORY [id number] [place] [address] [place] OXYGENATED HEMOGLOBIN IN BLOOD 68.8 % Normal [facility] Comment on above: Performed By: #### L [id number] ####[facility] RESPIRATORY [id number] [place] [address] [facility] HEPATIC FUNCTION PANELon Albumin [Mass/Vol] 3.3 g/dL Low 3.5-5.7 [facility] Comment on above: Performed By: #### L [id number] ####[facility] ([facility])[address] [place] [address] ALP [Catalytic activity/Vol] 49 U/L Normal 34-104 [facility] Comment on above: Performed By: #### L [id number] ####[facility] ([facility])[address] [place] [address] ALT [Catalytic activity/Vol] 60 U/L High 7-52 [facility] Comment on above: Performed By: #### L [id number] ####[facility] ([facility])[address] [place] [address] AST [Catalytic activity/Vol] 127 U/L High 13-39 [facility] Comment on above: Performed By: #### L [id number] ####[facility] ([facility])[address] [place] [address] Bilirubin [Mass/Vol] 0.5 mg/dL Normal 0.3-1.0 [facility] Comment on above: Performed By: #### L [id number] ####[facility] ([facility])[address] [place] [address] Magnesium [Mass/Vol] 0.2 mg/dL Normal 0-0.2 [facility] Comment on above: Performed By: #### L [id number] ####[facility] ([facility])[address] [place] [address] Protein [Mass/Vol] 4.8 g/dL Low 6.0-8.3 [facility] Comment on above: Performed By: #### L [id number] ####[facility] ([facility])[address] [place] [address] LACTIC ACID WITH 4 HOUR REFL EXon 04-25-2023 LACTATE (MMOL/L) IN SER/PLAS 1.4 mmol/L Normal 0.5-2.2 [facility] Comment on above: Performed By: #### L [id number] ####[facility] ([facility])[address] [place] [address] MAGNESIUMon 04-25-2023 Magnesium [Mass/Vol] 1.7 mg/dL Low 1.9-2.7 [facility] Comment on above: Performed By: #### L [id number] ####[facility] ([facility])[address] [place] [address] NURSNOTEon 04-25-2023 NURSNOTE Normal [facility] NURSNOTE Normal [facility] PHOSPHORUSon 04-25-2023 Magnesium [Mass/Vol] 2.3 mg/dL Low 2.5-5.0 [facility] Comment on above: Performed By: #### L [id number] ####[facility] ([facility])[address] [facility] [place] [address] POCT GLUCOSE METER UNSOLICIT ED RESULTSon 04-25-2023 Glucose [Mass/Vol] 106 mg/dL High 70-105 [facility] Comment on above: Order Comment: Waive d Testing in the ED is performed under the ED CLIA certificate #[id number]. Result Comment: [email or web address] Performed By: #### L [id number] ####[facility] ([facility])[address] [place] [address] Glucose [Mass/Vol] 128 mg/dL High 70-105 [facility] Comment on above: Order Comment: Waive d Testing in the ED is performed under the ED CLIA certificate #[id number]. Result Comment: [email or web address] Performed By: #### L [id number] ####[facility] ([facility])[address] [facility] [place] [address] PROTIME-INRon 04-25-2023 INR IN PPP BY COAGULATION ASSAY 1.34 High 0.90-1.10 [facility] Comment on above: Result Comment: ACCC P [...] CHEST 1995;108:[id number]. Performed By: #### L [id number] ####[facility] ([employer])[address] [place] [address] PROTHROMBIN TIME (PT) IN PPP BY COAGULATION ASSAY 16.6 Seconds High 12.3-14.8 [facility] Comment on above: Performed By: #### L [id number] ####[facility] ([employer])[address] [place] [address] INR IN PPP BY COAGULATION ASSAY 1.39 High 0.90-1.10 [facility] Comment on above: Result Comment: ACCC P [...] CHEST 1995;108:[id number]. Performed By: #### L [id number] ####[facility] (BEAKER)[address] [place] [address] PROTHROMBIN TIME (PT) IN PPP BY COAGULATION ASSAY 17.1 Seconds High 12.3-14.8 [facility] Comment on above: Performed By: #### L [id number] ####[facility] (BEAKER)[address] [facility] [address] 30on 04-24-2023 30 Normal [facility] 30 Normal [facility] 30 Normal [facility] ARTERIAL BLOOD GAS WITH IONI ZED CALCIUMon 04-24-2023 Base excess Calc (Bld) [Moles/Vol] -2.0000 mmol/L Normal -2.0-3.0 [facility] Comment on above: Performed By: #### L [id number] ####[facility] RESPIRATORY [id number] [place] [address] [place] CALCIUM IONIZED (MMOL/L) IN BLOOD 1.06 mmol/L Low 1.15-1.33 [facility] Comment on above: Performed By: #### L [id number] ####[facility] RESPIRATORY [id number] [facility] [place] [address] [place] CO2 (Bld) [Partial pressure] 31 mm[Hg] Low 35-48 [facility] Comment on above: Performed By: #### L [id number] ####[facility] RESPIRATORY [id number] [place] [address] [place] HCO3 (Bld) [Moles/Vol] 21.5 mmol/L Normal 21.0-28.0 [facility] Comment on above: Performed By: #### L [id number] ####[facility] RESPIRATORY [id number] [place] [address] [place] Oxygen (Bld) [Partial pressure] 118 mm[Hg] High 83-100 [facility] Comment on above: Performed By: #### L [id number] ####[facility] RESPIRATORY [id number] [place] [address] [place] OXYGEN SATURATION (%) IN ARTERIAL BLOOD 99.4 % High 94.0-98.0 [facility] Comment on above: Performed By: #### L [id number] ####[facility] RESPIRATORY [id number] [facility] [place] [address] [place] pH (Bld) 7.45 [pH] Normal 7.35-7.45 [facility] Comment on above: Performed By: #### L [id number] ####[facility] RESPIRATORY [id number] [place] [address] [place] SOURCE OF OXYGEN AC/VC Normal [facility] Comment on above: Performed By: #### L [id number] ####[facility] RESPIRATORY [id number] [place] [address] [place] TIDAL VOLUME (VT) CC 8 Normal [facility] Comment on above: Performed By: #### L [id number] ####[facility] RESPIRATORY [id number] [place] [address] [facility] BASIC METABOLIC PANELon 11-0 Anion gap [Moles/Vol] 10 mmol/L Normal 7-20 [facility] Comment on above: Performed By: #### L [id number] ####[facility] (BEAKER)[address] [place] [address] Calcium [Mass/Vol] 8.5 mg/dL Low 8.6-10.3 [facility] Comment on above: Performed By: #### L [id number] ####[facility] ([facility]AKER)[address] [place] [address] Chloride [Moles/Vol] 113 mmol/L High 98-107 [facility] Comment on above: Performed By: #### L [id number] ####[facility] (BEAKER)[address] [place] [address] CO2 [Moles/Vol] 24 mmol/L Normal 21-31 [facility] Comment on above: Performed By: #### L [id number] ####[facility] (BEAKER)[address] [place] [address] Creatinine [Mass/Vol] 0.83 mg/dL Normal 0.70-1.30 [facility] Comment on above: Performed By: #### L [id number] ####[facility] (BEAKER)[address] [place] [address] GLOMERULAR FILTRATION RATE ML/MIN/1.73 SQ M.PREDICTED 94.7 mL/min/1.73m*2 Normal >60.0 [facility] Comment on above: Result Comment: The [facility]???s estimated glomerular filtration rate (eGFR) will no [...] of individuals. Performed By: #### L [id number] ####[facility] ([facility])[address] [place] [address] Glucose [Mass/Vol] 208 mg/dL High 70-100 [facility] Comment on above: Performed By: #### L [id number] ####[facility] ([facility])[address] [place] [address] Potassium [Moles/Vol] 3.6 mmol/L Normal 3.5-5.1 [facility] Comment on above: Performed By: #### L [id number] ####[facility] ([facility])[address] [place] [address] Sodium [Moles/Vol] 143 mmol/L Normal 136-145 [facility] Comment on above: Performed By: #### L [id number] ####[facility] ([facility])[address] [place] [address] Urea nitrogen [Mass/Vol] 19 mg/dL Normal 7-25 [facility] Comment on above: Performed By: #### L [id number] ####[facility] ([facility])[address] [place] [address] UREA NITROGEN/CREATININ E (MASS RATIO) IN SER/PLAS 22.9 Normal [facility] Comment on above: Performed By: #### L [id number] ####[facility] ([facility])[address] [place] [address] CALCIUM, IONIZEDon 3 CALCIUM IONIZED (MMOL/L) IN BLOOD 1.20 mmol/L Normal 1.15-1.33 [facility] Comment on above: Performed By: #### C ALCIUM, IONIZED ####[facility] RESPIRATORY [id number] [place] [address] [place] CBCon 04-24-2023 Erythrocyte distribution width (RBC) [Ratio] 13.9 % Normal 11.5-15.0 [facility] Comment on above: Performed By: #### L [id number] ####[facility] (BEAKER)[address] [place] [address] ERYTHROCYTE MEAN CORPUSCULAR HEMOGLOBIN CONCENTRATION (G/DL) BY AUTOMATED 34.3 g/dL Normal 32.0-35.0 [facility] Comment on above: Performed By: #### L [id number] ####[facility] (BEAKER)[address] [place] [address] Hematocrit (Bld) [Volume fraction] 28.0 % Low 39.0-55.0 [facility] Comment on above: Performed By: #### L [id number] ####[facility] (BEAKER)[address] [place] [address] Hemoglobin (Bld) [Mass/Vol] 9.6 g/dL Low 13.0-17.0 [facility] Comment on above: Performed By: #### L [id number] ####[facility] (BEAKER)[address] [place] [address] IMMATURE PLATELET FRACTION % 5.1 % Normal 0.8-6.3 [facility] Comment on above: Performed By: #### L [id number] ####[facility] (BEAKER)[address] [place] [address] MCH (RBC) [Entitic mass] 30.7 pg Normal 27.0-33.0 [facility] Comment on above: Performed By: #### L [id number] ####[facility] (BEAKER)[address] [place] [address] MCV (RBC) [Entitic vol] 89.5 fL Normal 82.0-98.0 [facility] Comment on above: Performed By: #### L [id number] ####[facility] ([facility])[address] [place] [address] PLATELETS (10*3/UL) IN BLOOD AUTOMATED COUNT 69 10*3/uL Low 150-400 [facility] Comment on above: Performed By: #### L [id number] ####[facility] ([facility])[address] [place] [address] RBC (Bld) [#/Vol] 3.13 10*6/uL Low 4.20-5.70 [facility] Comment on above: Performed By: #### L [id number] ####[facility] ([facility])[address] [place] [address] WBC (Bld) [#/Vol] 16.62 10*3/uL High 4.00-10.60 [facility] Comment on above: Performed By: #### L [id number] ####[facility] ([facility])[address] [place] [address] CO-OXIMETRYon 04-24-2023 CARBOXYHEMOGLOBIN/ HEMOGLOBIN TOTAL % IN BLOOD 1.2 % Normal [facility] Comment on above: Performed By: #### L [id number] ####[facility] [id number] [place] [address] [place] Hemoglobin (Bld) [Mass/Vol] 9.6 g/dL Normal [facility] Comment on above: Performed By: #### L [id number] ####[facility] RESP[facility] [id number] [place] [address] [place] METHEMOGLOBIN/100 IN BLOOD 0.4 % Normal 0.0-1.5 [facility] Comment on above: Performed By: #### L [id number] ####[facility] RESP[facility] [id number] [place] [address] [place] Oxygen saturation in Blood 67.5 % Normal [facility] Comment on above: Performed By: #### L [id number] ####[facility] [id number] [place] [address] [place] OXYGENATED HEMOGLOBIN IN BLOOD 66.4 % Normal [facility] Comment on above: Performed By: #### L [id number] ####[facility] RESPIR[facility]ORY [id number] [place] [address] [place] HEMOGLOBIN AND HEMATOCRIT, B LOODon 04-24-2023 Hematocrit (Bld) [Volume fraction] 28.1 % Low 39.0-55.0 [facility] Comment on above: Performed By: #### L [id number] ####[facility] ([facility] [place] [address] Hemoglobin (Bld) [Mass/Vol] 9.5 g/dL Low 13.0-17.0 [facility] Comment on above: Performed By: #### L [id number] ####[facility] ([facility] [place] [address] HEPATIC FUNCTION PANELon Albumin [Mass/Vol] 3.7 g/dL Normal 3.5-5.7 [facility] Comment on above: Performed By: #### L [id number] ####[facility] ([facility] [place] [address] ALP [Catalytic activity/Vol] 39 U/L Normal 34-104 [facility] Comment on above: Performed By: #### L [id number] ####[facility] (BEAKER)[address] [place] [address] ALT [Catalytic activity/Vol] 82 U/L High 7-52 [facility] Comment on above: Performed By: #### L [id number] ####[facility] (BEAKER)[address] [place] [address] AST [Catalytic activity/Vol] 229 U/L High 13-39 [facility] Comment on above: Performed By: #### L [id number] ####[facility] (BEAKER)[address] [place] [address] Bilirubin [Mass/Vol] 0.5 mg/dL Normal 0.3-1.0 [facility] Comment on above: Performed By: #### L [id number] ####[facility] (BEAKER)[address] [place] [address] Magnesium [Mass/Vol] 0.2 mg/dL Normal 0-0.2 [facility] Comment on above: Performed By: #### L [id number] ####[facility] (BEAKER)[address] [place] [address] Protein [Mass/Vol] 4.9 g/dL Low 6.0-8.3 [facility] Comment on above: Performed By: #### L [id number] ####[facility] ([facility])[address] [place] [address] LACTIC ACID WITH 4 HOUR REFL EXon 04-24-2023 LACTATE (MMOL/L) IN SER/PLAS 1.3 mmol/L Normal 0.5-2.2 [facility] Comment on above: Performed By: #### L [id number] ####[facility] ([facility] [place] [address] Performed By: #### L [id number] ####[facility] ([facility])[address] [place] [address] LACTATE (MMOL/L) IN SER/PLAS 4.0 mmol/L Critically high 0.5-2.2 [facility] Comment on above: Result Comment: Prev ious result verified on 04/23/2023 2300 on specimen/case [id number] called with component Lactate blood venous for procedure Lactic acid, venous, whole blood with value 9.1 mmol/L. Performed By: #### L [id number] ####[facility] ([facility])[address] [place] [address] LACTATE (MMOL/L) IN SER/PLAS 9.1 mmol/L Critically high 0.5-2.2 [facility] Comment on above: Result Comment: Prev ious result verified on 04/23/2023 2137 on specimen/case [id number] called with component Lactate blood venous for procedure Lactic acid, venous, whole blood with value 12.1 mmol/L. Performed By: #### L [id number] ####[facility] (BEAKER)[address] [place] [address] MAGNESIUMon 04-24-2023 Magnesium [Mass/Vol] 1.8 mg/dL Low 1.9-2.7 [facility] Comment on above: Performed By: #### L [id number] ####[facility] ([facility])[address] [place] [address] MYOGLOBIN, URINEon 3 MYOGLOBIN URINE 2 mg/L High 0-1 [facility] Comment on above: Result Comment: The pH [...] was developed and its performance characteristicsdetermined by [email or web address]. It has not been cleared orapproved by the [place] Food and Drug Administration. This test wasperformed in a CLIA certified laboratory and is intended forclinical purposes.Performed By: [email or web address] [place], [place] [email or web address] Director: Wenceslao Healy MD, PhDCLIA Number: [id number] Performed By: #### L [id number] ####[facility] ([facility])[address] [place] [address] POCT GLUCOSE METER UNSOLICIT ED RESULTSon 04-24-2023 Glucose [Mass/Vol] 129 mg/dL High 70-105 [facility] Comment on above: Order Comment: Waive d Testing in the ED is performed under the ED CLIA certificate #[id number]. Result Comment: afin [email or web address] Performed By: #### L [id number] ####[facility] (BEAKER)[address] [place] [address] Glucose [Mass/Vol] 116 mg/dL High 70-105 [facility] Comment on above: Order Comment: Waive d Testing in the ED is performed under the ED CLIA certificate #[id number]. Result Comment: [email or web address] [email or web address] Performed By: #### L [id number] ####[facility] (BEAKER)[address] [place] [address] Glucose [Mass/Vol] 106 mg/dL High 70-105 [facility] Comment on above: Order Comment: Waive d Testing in the ED is performed under the ED CLIA certificate #[id number]. Result Comment: nhay man Performed By: #### L [id number] ####[facility] (BEAKER)[address] [place] [address] Glucose [Mass/Vol] 113 mg/dL High 70-105 [facility] Comment on above: Order Comment: Waive d Testing in the ED is performed under the ED CLIA certificate #[id number]. Result Comment: nhay man Performed By: #### L [id number] ####[facility] (BEAKER)[address] [place] [address] Glucose [Mass/Vol] 118 mg/dL High 70-105 [facility] Comment on above: Order Comment: Waive d Testing in the ED is performed under the ED CLIA certificate #[id number]. Result Comment: nhay man Performed By: #### L [id number] ####[facility] (BEAKER)[address] [place] [address] Glucose [Mass/Vol] 75 mg/dL Normal 70-105 [facility] Comment on above: Order Comment: Waive d Testing in the ED is performed under the ED CLIA certificate #[id number]. Result Comment: nhay man Performed By: #### L [id number] ####[facility] (BEAKER)[address] [place] [address] Glucose [Mass/Vol] 163 mg/dL High 70-105 [facility] Comment on above: Order Comment: Waive d Testing in the ED is performed under the ED CLIA certificate #[id number]. Result Comment: than sen2 Performed By: #### L [id number] ####[facility] (BEAKER)[address] [place] [address] Glucose [Mass/Vol] 176 mg/dL High 70-105 [facility] Comment on above: Order Comment: Waive d Testing in the ED is performed under the ED CLIA certificate #[id number]. Result Comment: than sen2 Performed By: #### L [id number] ####[facility] (AKER)[address] [place] [address] Glucose [Mass/Vol] 147 mg/dL High 70-105 [facility] Comment on above: Order Comment: Waive d Testing in the ED is performed under the ED CLIA certificate #[id number]. Result Comment: kste [email or web address] Performed By: #### L [id number] ####[facility] ([facility])[address] [place] [address] Glucose [Mass/Vol] 199 mg/dL High 70-105 [facility] Comment on above: Order Comment: Waive d Testing in the ED is performed under the ED CLIA certificate #[id number]. Result Comment: kste [email or web address] Performed By: #### L [id number] ####[facility] (BEAKER)[address] [place] [address] Glucose [Mass/Vol] 202 mg/dL High 70-105 [facility] Comment on above: Order Comment: Waive d Testing in the ED is performed under the ED CLIA certificate #[id number]. Result Comment: than sen2 Performed By: #### L [id number] ####[facility] (BEAKER)[address] [place] [address] Glucose [Mass/Vol] 233 mg/dL High 70-105 [facility] Comment on above: Order Comment: Waive d Testing in the ED is performed under the ED CLIA certificate #[id number]. Result Comment: than sen2 Performed By: #### L [id number] ####[facility] (BEAKER)[address] [place] [address] Glucose [Mass/Vol] 253 mg/dL High 70-105 [facility] Comment on above: Order Comment: Waive d Testing in the ED is performed under the ED CLIA certificate #[id number]. Result Comment: kste [email or web address] Performed By: #### L [id number] ####[facility] ([facility])[address] [place] [address] Glucose [Mass/Vol] 279 mg/dL High 70-105 [facility] Comment on above: Order Comment: Waive d Testing in the ED is performed under the ED CLIA certificate #[id number]. Result Comment: than sen2 Performed By: #### L [id number] ####[facility] ([facility])[address] [place] [address] Glucose [Mass/Vol] 270 mg/dL High 70-105 [facility] Comment on above: Order Comment: Waive d Testing in the ED is performed under the ED CLIA certificate #[id number]. Result Comment: than sen2 Performed By: #### L [id number] ####[facility] ([facility])[address] [place] [address] Glucose [Mass/Vol] 267 mg/dL High 70-105 [facility] Comment on above: Order Comment: Waive d Testing in the ED is performed under the ED CLIA certificate #[id number]. Result Comment: [email or web address] [email or web address] Performed By: #### L [id number] ####[facility] (BEAKER)[address] [place] [address] POTASSIUM, WHOLE BLOODon Potassium [Moles/Vol] 4.4 mmol/L Normal 3.5-5.1 [facility] Comment on above: Performed By: #### P OTASSIUM, WHOLE BLOOD ####[facility] RESP[facility] [id number] [place] [address] [place] SODIUM, WHOLE BLOODon 2022 SODIUM, WHOLE BLOOD 141 Normal 136-145 [facility] Comment on above: Performed By: #### S ODIUM, WHOLE BLOOD ####[facility] RESPIRATORY [id number] [place] [address] [place] TROPONIN Ion 04-24-2023 Troponin I.cardiac [Mass/Vol] 34.92 ng/mL Critically high 0.00-0.04 [facility] Comment on above: Result Comment: Prev ious result verified on 04/23/2023 2259 on specimen/case [id number] called with component Troponin I for procedure Troponin I with value 22.65 ng/mL. Performed By: #### L [id number] ####[facility] ([facility])[address] [place] [address] 30on 04-23-2023 30 Normal [facility] 30 Normal [facility] AMYLASEon 04-23-2023 Amylase [Catalytic activity/Vol] 86 U/L Normal 29-103 [facility] Comment on above: Performed By: #### L [id number] ####[facility] ([facility])[address] [place] [address] APTTon 04-23-2023 ACTIVATED PARTIAL THROMBOPLASTIN TIME IN PPP BY COAGULATION ASSAY 45.1 Seconds High 25.0-35.0 [facility] Comment on above: Result Comment: Clin ical significance of the APTT is questionable in the presence of heparin. Performed By: #### L [id number] ####[facility] ([facility])[address] [place] [address] ACTIVATED PARTIAL THROMBOPLASTIN TIME IN PPP BY COAGULATION ASSAY 49.0 Seconds High 25.0-35.0 [facility] Comment on above: Result Comment: Clin ical significance of the APTT is questionable in the presence of heparin. Performed By: #### L [id number] ####[facility] ([facility])[address] [place] [address] ARTERIAL BLOOD GAS WITH IONI ZED CALCIUMon 04-23-2023 Base excess Calc (Bld) [Moles/Vol] -16.49101 mmol/L Low -2.0-3.0 [facility] Comment on above: Performed By: #### L [id number] ####[facility] RESPIRATORY [id number] [place] [facility] [address] [facility] CALCIUM IONIZED (MMOL/L) IN BLOOD 1.15 mmol/L Normal 1.15-1.33 [facility] Comment on above: Performed By: #### L [id number] ####[facility] RESPIRATORY [id number] [facility] [place] [address] [facility] CO2 (Bld) [Partial pressure] 20 mm[Hg] Invalid Interpretation Code 35-48 [facility] Comment on above: Performed By: #### L [id number] ####[facility] RESPIRATORY [id number] [facility] [place] [address] [facility] HCO3 (Bld) [Moles/Vol] 8.8 mmol/L Low 21.0-28.0 [facility] Comment on above: Performed By: #### L [id number] ####[facility] RESPIRATORY [id number] [facility] [place] [address] [place] LPM 2 Normal [facility] Comment on above: Performed By: #### L [id number] ####[facility] RESPIRATORY [id number] [place] [address] [facility] Oxygen (Bld) [Partial pressure] 67 mm[Hg] Low 83-100 [facility] Comment on above: Performed By: #### L [id number] ####[facility] RESPIRATORY [id number] [place] [address] [facility] OXYGEN SATURATION (%) IN ARTERIAL BLOOD 93.6 % Low 94.0-98.0 [facility] Comment on above: Performed By: #### L [id number] ####[facility] RESPIRATORY [id number] [place] [facility] [address] [facility] pH (Bld) 7.25 [pH] Low 7.35-7.45 [facility] Comment on above: Performed By: #### L [id number] ####[facility] RESPIRATORY [id number] [place] [address] [facility] SOURCE OF OXYGEN Nasal cannula Normal Unive [facility] Comment on above: Performed By: #### L [id number] ####[facility] RESPIRATORY [id number] [facility] [place] [address] [place] Base excess Calc (Bld) [Moles/Vol] -15.55688 mmol/L Low -2.0-3.0 [facility] Comment on above: Order Comment: On ar rival to CVU Performed By: #### L [id number] ####[facility] RESPIRATORY [id number] [facility] [place] [address] [place] CALCIUM IONIZED (MMOL/L) IN BLOOD 1.16 mmol/L Normal 1.15-1.33 [facility] Comment on above: Order Comment: On ar rival to CVU Performed By: #### L [id number] ####[facility] RESPIRATORY [id number] [facility] [place] [address] [facility] CO2 (Bld) [Partial pressure] 21 mm[Hg] Invalid Interpretation Code 35-48 [facility] Comment on above: Order Comment: On ar rival to CVU Performed By: #### L [id number] ####[facility] RESPIRATORY [id number] [facility] [place] [address] [place] HCO3 (Bld) [Moles/Vol] 9.6 mmol/L Low 21.0-28.0 [facility] Comment on above: Order Comment: On ar rival to CVU Performed By: #### L [id number] ####[facility] RESPIRATORY [id number] [place] [address] [place] Oxygen (Bld) [Partial pressure] 63 mm[Hg] Low 83-100 [facility] Comment on above: Order Comment: On ar rival to CVU Performed By: #### L [id number] ####[facility] RESPIRATORY [id number] [facility] [place] [address] [place] OXYGEN SATURATION (%) IN ARTERIAL BLOOD 92.2 % Low 94.0-98.0 [facility] Comment on above: Order Comment: On ar rival to CVU Performed By: #### L [id number] ####[facility] RESPIRATORY [id number] [facility] [place] [address] [place] pH (Bld) 7.27 [pH] Low 7.35-7.45 [facility] Comment on above: Order Comment: On ar rival to CVU Performed By: #### L [id number] ####[facility] RESPIRATORY [id number] [place] [address] [facility] SOURCE OF OXYGEN Nasal cannula Normal [facility] Comment on above: Order Comment: On ar rival to CVU Performed By: #### L [id number] ####[facility] RESPIRATORY [id number] [place] [address] [facility] Anesthesiaon 04-23-2023 Anesthesia [id number] Ortiz,Gui 1955 M Date Provider Department Center 04/23/2023 KAUSHAL FINLEY [facility] SICU None Family History Family history unknown: Yes Normal [facility] BASIC METABOLIC PANELon 11-0 Anion gap [Moles/Vol] 10 mmol/L Normal 7-20 [facility] Comment on above: Performed By: #### L [id number] ####[facility] (BEAKER)[address] [place] [address] Calcium [Mass/Vol] 8.4 mg/dL Low 8.6-10.3 [facility] Comment on above: Performed By: #### L [id number] ####[facility] (BEAKER)[address] [place] [address] Chloride [Moles/Vol] 114 mmol/L High 98-107 [facility] Comment on above: Performed By: #### L [id number] ####[facility] (BEAKER)[address] [place] [address] CO2 [Moles/Vol] 25 mmol/L Normal 21-31 [facility] Comment on above: Performed By: #### L [id number] ####[facility] (BEAKER)[address] [place] [address] Creatinine [Mass/Vol] 0.86 mg/dL Normal 0.70-1.30 [facility] Comment on above: Performed By: #### L [id number] ####[facility] (BEAKER)[address] [place] [address] GLOMERULAR FILTRATION RATE ML/MIN/1.73 SQ M.PREDICTED 93.7 mL/min/1.73m*2 Normal >60.0 [facility] Comment on above: Result Comment: The [facility]???s estimated glomerular filtration rate (eGFR) will no [...] of individuals. Performed By: #### L [id number] ####[facility] ([facility])[address] [place] [address] Glucose [Mass/Vol] 86 mg/dL Normal 70-100 [facility] Comment on above: Performed By: #### L [id number] ####[facility] ([facility])[address] [place] [address] Potassium [Moles/Vol] 3.9 mmol/L Normal 3.5-5.1 [facility] Comment on above: Performed By: #### L [id number] ####[facility] ([facility])[address] [place] [address] Sodium [Moles/Vol] 145 mmol/L Normal 136-145 [facility] Comment on above: Performed By: #### L [id number] ####[facility] ([facility])[address] [place] [address] Urea nitrogen [Mass/Vol] 19 mg/dL Normal 7-25 [facility] Comment on above: Performed By: #### L [id number] ####[facility] ([facility])[address] [place] [address] UREA NITROGEN/CREATININ E (MASS RATIO) IN SER/PLAS 22.1 Normal [facility] Comment on above: Performed By: #### L [id number] ####[facility] (BEAKER)[address] [place] [address] CALCIUM, IONIZEDon 3 CALCIUM IONIZED (MMOL/L) IN BLOOD 1.21 mmol/L Normal 1.15-1.33 [facility] Comment on above: Performed By: #### C ALCIUM, IONIZED ####[facility] RESPIRATORY [id number] [place] [address] [place] CALCIUM IONIZED (MMOL/L) IN BLOOD 1.19 mmol/L Normal 1.15-1.33 [facility] Comment on above: Performed By: #### C ALCIUM, IONIZED ####[facility] RESPIRATORY [id number] [place] [address] [facility] CALCIUM IONIZED (MMOL/L) IN BLOOD 1.07 mmol/L Low 1.15-1.33 [facility] Comment on above: Performed By: #### C ALCIUM, IONIZED ####[facility] RESPIRATORY [id number] [place] [address] [place] CBCon 04-23-2023 Erythrocyte distribution width (RBC) [Ratio] 13.3 % Normal 11.5-15.0 [facility] Comment on above: Performed By: #### L [id number] ####[facility] ([facility])[address] [place] [address] ERYTHROCYTE MEAN CORPUSCULAR HEMOGLOBIN CONCENTRATION (G/DL) BY AUTOMATED 34.2 g/dL Normal 32.0-35.0 [facility] Comment on above: Performed By: #### L [id number] ####[facility] ([facility])[address] [place] [address] Hematocrit (Bld) [Volume fraction] 22.5 % Low 39.0-55.0 [facility] Comment on above: Performed By: #### L [id number] ####[facility] (BEAKER)[address] [place] [address] Hemoglobin (Bld) [Mass/Vol] 7.7 g/dL Low 13.0-17.0 [facility] Comment on above: Result Comment: Resu lts checked Performed By: #### L [id number] ####[facility] ([facility])[address] [place] [address] IMMATURE PLATELET FRACTION % 2.5 % Normal 0.8-6.3 [facility] Comment on above: Performed By: #### L [id number] ####[facility] ([facility])[address] [place] [address] MCH (RBC) [Entitic mass] 31.3 pg Normal 27.0-33.0 [facility] Comment on above: Performed By: #### L [id number] ####[facility] ([facility])[address] [place] [address] MCV (RBC) [Entitic vol] 91.5 fL Normal 82.0-98.0 [facility] Comment on above: Performed By: #### L [id number] ####[facility] ([facility])[address] [place] [address] PLATELETS (10*3/UL) IN BLOOD AUTOMATED COUNT 80 10*3/uL Low 150-400 [facility] Comment on above: Result Comment: Plt est 74 ok Performed By: #### L [id number] ####[facility] ([facility])[address] [place] [address] RBC (Bld) [#/Vol] 2.46 10*6/uL Low 4.20-5.70 [facility] Comment on above: Performed By: #### L [id number] ####[facility] ([facility])[address] [place] [address] WBC (Bld) [#/Vol] 7.84 10*3/uL Normal 4.00-10.60 [facility] Comment on above: Performed By: #### L [id number] ####[facility] ([facility])[address] [place] [address] CBC WITH AUTO DIFFERENTIALon 04-23-2023 Erythrocyte distribution width (RBC) [Ratio] 14.0 % Normal 11.5-15.0 [facility] Comment on above: Performed By: #### L [id number] ####[facility] ([facility])[address] [place] [address] ERYTHROCYTE MEAN CORPUSCULAR HEMOGLOBIN CONCENTRATION (G/DL) BY AUTOMATED 33.9 g/dL Normal 32.0-35.0 [facility] Comment on above: Performed By: #### L [id number] ####[facility] ([facility])[address] [place] [address] Hematocrit (Bld) [Volume fraction] 18.0 % Low 39.0-55.0 [facility] Comment on above: Performed By: #### L [id number] ####[facility] ([facility])[address] [place] [address] Hemoglobin (Bld) [Mass/Vol] 6.1 g/dL Low 13.0-17.0 [facility] Comment on above: Performed By: #### L [id number] ####[facility] ([facility])[address] [place] [address] IMMATURE PLATELET FRACTION % 3.6 % Normal 0.8-6.3 [facility] Comment on above: Performed By: #### L [id number] ####[facility] ([facility])[address] [place] [address] MCH (RBC) [Entitic mass] 31.4 pg Normal 27.0-33.0 [facility] Comment on above: Performed By: #### L [id number] ####[facility] ([facility])[address] [place] [address] MCV (RBC) [Entitic vol] 92.8 fL Normal 82.0-98.0 [facility] Comment on above: Performed By: #### L [id number] ####[facility] ([facility])[address] [place] [address] NRBC (PER 100 WBCS) BY AUTOMATED COUNT 0.0 % Normal 0 [facility] Comment on above: Performed By: #### L [id number] ####[facility] ([facility])[address] [place] [address] PLATELETS (10*3/UL) IN BLOOD AUTOMATED COUNT 68 10*3/uL Low 150-400 [facility] Comment on above: Performed By: #### L [id number] ####[facility] ([facility])[address] [place] [address] RBC (Bld) [#/Vol] 1.94 10*6/uL Low 4.20-5.70 [facility] Comment on above: Performed By: #### L [id number] ####[facility] ([facility])[address] [place] [address] WBC (Bld) [#/Vol] 12.79 10*3/uL High 4.00-10.60 [facility] Comment on above: Performed By: #### L [id number] ####[facility] ([facility])[address] [place] [address] CK TOTAL AND CKMBon 04-23-20 CREATINE KINASE (U/L) IN SER/PLAS 4110.0 U/L High 30.0-223.0 [facility] Comment on above: Performed By: #### L [id number] ####[facility] ([facility])[address] [place] [address] CREATINE KINASE MB/CREATINE KINASE TOTAL BY CALCULATION 2.9 High <=1.9 [facility] Comment on above: Performed By: #### L [id number] ####[facility] ([facility])[address] [place] [address] CREATINE KINASE-MB (NG/ML) IN SER/PLAS 122.5 ng/mL High 0.0-5.0 [facility] Comment on above: Performed By: #### L [id number] ####[facility] ([facility])[address] [place] [address] CO-OXIMETRYon 04-23-2023 CARBOXYHEMOGLOBIN/ HEMOGLOBIN TOTAL % IN BLOOD 1.3 % Normal [facility] Comment on above: Performed By: #### L [id number] ####[facility] RESPIRATORY [id number] [place] [address] [facility] Hemoglobin (Bld) [Mass/Vol] 7.8 g/dL Normal [facility] Comment on above: Performed By: #### L [id number] ####[facility] RESPIRATORY [id number] [place] [address] [place] METHEMOGLOBIN/100 IN BLOOD 1.0 % Normal 0.0-1.5 [facility] Comment on above: Performed By: #### L [id number] ####[facility] RESPIRATORY [id number] [place] [address] [place] Oxygen saturation in Blood 65.8 % Normal [facility] Comment on above: Performed By: #### L [id number] ####[facility] RESPIRATORY [id number] [place] [address] [facility] OXYGENATED HEMOGLOBIN IN BLOOD 64.2 % Normal [facility] Comment on above: Performed By: #### L [id number] ####[facility] RESPIRATORY [id number] [facility] [address] [facility] COMPREHENSIVE METABOLIC PANE Roddy 04-23-2023 Albumin [Mass/Vol] 3.6 g/dL Normal 3.5-5.7 [facility] Comment on above: Performed By: #### L [id number] ####[facility] (BEAKER)[address] [place] [address] ALP [Catalytic activity/Vol] 34 U/L Normal 34-104 [facility] Comment on above: Performed By: #### L [id number] ####[facility] (BEAKER)[address] [place] [address] ALT [Catalytic activity/Vol] 22 U/L Normal 7-52 [facility] Comment on above: Performed By: #### L [id number] ####[facility] (BEAKER)[address] [place] [address] Anion gap [Moles/Vol] 21 mmol/L High 7-20 [facility] Comment on above: Performed By: #### L [id number] ####[facility] (BEAKER)[address] [place] [address] AST [Catalytic activity/Vol] 132 U/L High 13-39 [facility] Comment on above: Performed By: #### L [id number] ####[facility] ([facility])[address] [address] Bilirubin [Mass/Vol] 0.5 mg/dL Normal 0.3-1.0 [facility] Comment on above: Performed By: #### L [id number] ####[facility] ([facility])[address] [place] [address] Calcium [Mass/Vol] 8.1 mg/dL Low 8.6-10.3 [facility] Comment on above: Performed By: #### L [id number] ####[facility] ([facility])[address] [place] [address] Chloride [Moles/Vol] 109 mmol/L High 98-107 [facility] Comment on above: Performed By: #### L [id number] ####[facility] ([facility])[address] [place] [address] CO2 [Moles/Vol] 20 mmol/L Low 21-31 [facility] Comment on above: Performed By: #### L [id number] ####[facility] ([facility])[address] [place] [address] Creatinine [Mass/Vol] 1.16 mg/dL Normal 0.70-1.30 [facility] Comment on above: Performed By: #### L [id number] ####[facility] ([facility])[address] [place] [address] GLOMERULAR FILTRATION RATE ML/MIN/1.73 SQ M.PREDICTED 68.2 mL/min/1.73m*2 Normal >60.0 [facility] Comment on above: Result Comment: The [facility]???s estimated glomerular filtration rate (eGFR) will no [...] of individuals. Performed By: #### L [id number] ####[facility] ([facility])[address] [place] [address] Glucose [Mass/Vol] 255 mg/dL High 70-100 [facility] Comment on above: Performed By: #### L [id number] ####[facility] ([facility])[address] [place] [address] Potassium [Moles/Vol] 4.4 mmol/L Normal 3.5-5.1 [facility] Comment on above: Performed By: #### L [id number] ####[facility] ([facility])[address] [place] [address] Protein [Mass/Vol] 4.7 g/dL Low 6.0-8.3 [facility] Comment on above: Performed By: #### L [id number] ####[facility] ([facility])[address] [place] [address] Sodium [Moles/Vol] 146 mmol/L High 136-145 [facility] Comment on above: Performed By: #### L [id number] ####[facility] ([facility])[address] [place] [address] Urea nitrogen [Mass/Vol] 21 mg/dL Normal 7-25 [facility] Comment on above: Performed By: #### L [id number] ####[facility] ([facility])[address] [place] [address] UREA NITROGEN/CREATININ E (MASS RATIO) IN SER/PLAS 18.1 [facility] Comment on above: Performed By: #### L [id number] ####[facility] ([facility])[address] [place] [address] CONSULTon 04-23-2023 CONSULT Normal [facility] CONSULT Normal [facility] FIBRINOGENon 04-23-2023 Magnesium [Mass/Vol] 258 mg/dL Normal 150-425 [facility] Comment on above: Performed By: #### L [id number] ####[facility] ([facility])[address] [place] [address] LACTIC ACID WITH 4 HOUR REFL EXon 04-23-2023 LACTATE (MMOL/L) IN SER/PLAS 12.1 mmol/L Critically high 0.5-2.2 [facility] Comment on above: Result Comment: Prev ious result verified on 04/22/2023 2146 on specimen/case [id number] called with component Lactate for procedure Lactic acid, plasma with value 2.6 mmol/L. Performed By: #### L [id number] ####[facility] ([facility])[address] [place] [address] LACTIC ACID, PLASMAon 2022 LACTATE (MMOL/L) IN SER/PLAS 2.2 mmol/L Normal 0.5-2.2 [facility] Comment on above: Performed By: #### L [id number] ####[facility] ([facility])[address] [place] [address] LIPASEon 04-23-2023 LIPASE (U/L) IN SER/PLAS 12 U/L Normal 11-82 [facility] Comment on above: Performed By: #### L [id number] ####[facility] ([facility])[address] [place] [address] MAGNESIUMon 04-23-2023 Magnesium [Mass/Vol] 1.8 mg/dL Low 1.9-2.7 [facility] Comment on above: Performed By: #### L [id number] ####[facility] ([facility])[address] [place] [address] MANUAL DIFFERENTIALon 2022 BASOPHILS (10*3/UL) IN BLOOD BY CALCULATION 0.01 10*3/uL Normal 0.00-0.20 [facility] Comment on above: Performed By: #### L [id number] ####[facility] ([facility])[address] [facility] [place] [address] BASOPHILS/100 LEUKOCYTES IN BLOOD BY AUTOMATED COUNT 0.1 % Normal 0.0-1.0 [facility] Comment on above: Performed By: #### L [id number] ####[facility] ([facility])[address] [place] [address] EOSINOPHILS (10*3/UL) IN BLOOD BY CALCULATION 0.00 10*3/uL Normal 0.00-0.50 [facility] Comment on above: Performed By: #### L [id number] ####[facility] ([facility])[address] [place] [address] EOSINOPHILS/100 LEUKOCYTES IN BLOOD BY AUTOMATED COUNT 0.0 % Normal 0.0-6.0 [facility] Comment on above: Performed By: #### L [id number] ####[facility] ([facility])[address] [place] [address] IMMATURE GRANULOCYTES (10*3/UL) IN BLOOD BY CALCULATION 0.09 10*3/uL Normal 0.00-0.20 [facility] Comment on above: Performed By: #### L [id number] ####[facility] ([facility])[address] [place] [address] IMMATURE GRANULOCYTES/100 LEUKOCYTES IN BLOOD BY AUTOMATED COUNT 0.7 % Normal 0.0-1.0 [facility] Comment on above: Performed By: #### L [id number] ####[facility] ([facility])[address] [place] [address] LYMPHOCYTES (10*3/UL) IN BLOOD BY CALCULATION 0.72 10*3/uL Low 1.20-4.00 [facility] Comment on above: Performed By: #### L [id number] ####[facility] ([facility])[address] [place] [address] LYMPHOCYTES/100 LEUKOCYTES IN BLOOD BY AUTOMATED COUNT 5.6 % Low 20.0-45.0 [facility] Comment on above: Performed By: #### L [id number] ####[facility] ([facility])[address] [place] [address] MONOCYTES (10*3/UL) IN BLOOD BY CALCUATION 0.70 10*3/uL Normal 0.10-1.00 [facility] Comment on above: Performed By: #### L [id number] ####[facility] ([facility])[address] [place] [address] MONOCYTES/100 LEUKOCYTES IN BLOOD BY AUTOMATED COUNT 5.5 % Normal 5.0-12.0 [facility] Comment on above: Performed By: #### L [id number] ####[facility] ([facility])[address] [place] [address] NEUTROPHILS (10*3/UL) IN BLOOD BY CALCULATION 11.3 10*3/uL High 1.6-7.6 [facility] Comment on above: Performed By: #### L [id number] ####[facility] ([facility])[address] [place] [address] NEUTROPHILS/100 LEUKOCYTES IN BLOOD BY AUTOMATED COUNT 88.1 % High 40.0-72.0 [facility] Comment on above: Performed By: #### L [id number] ####[facility] ([facility])[address] [place] [address] MYOGLOBIN, SERUMon 3 MYOGLOBIN (NG/ML) IN SER/PLAS 1832 ng/mL High 0-90 [facility] Comment on above: Result Comment: A DO UBLING OF VALUES FROM SERIAL BLOOD COLLECTIONS (1 - 2 HOURS APART) IS MORE INDICATIVE OF A M.I. THAN THE ABSOLUTE VALUE. Performed By: #### L [id number] ####[facility] ([facility])[address] [place] [address] PHOSPHORUSon 04-23-2023 Magnesium [Mass/Vol] 3.1 mg/dL Normal 2.5-5.0 [facility] Comment on above: Performed By: #### L [id number] ####[facility] ([facility])[address] [place] [address] POCT GLUCOSE METER UNSOLICIT ED RESULTSon 04-23-2023 Glucose [Mass/Vol] 267 mg/dL High 70-105 [facility] Comment on above: Order Comment: Waive d Testing in the ED is performed under the ED CLIA certificate #[id number]. Result Comment: than [email or web address] Performed By: #### L [id number] ####[facility] (BEAKER)[address] [place] [address] Glucose [Mass/Vol] 138 mg/dL High 70-105 [facility] Comment on above: Order Comment: Waive d Testing in the ED is performed under the ED CLIA certificate #[id number]. Result Comment: nhay man Performed By: #### L [id number] ####[facility] (AKER)[address] [place] [address] Glucose [Mass/Vol] 92 mg/dL Normal 70-105 [facility] Comment on above: Order Comment: Waive d Testing in the ED is performed under the ED CLIA certificate #[id number]. Result Comment: nhay man Performed By: #### L [id number] ####[facility] ([facility])[address] [place] [address] Glucose [Mass/Vol] 101 mg/dL Normal 70-105 [facility] Comment on above: Order Comment: Waive d Testing in the ED is performed under the ED CLIA certificate #[id number]. Result Comment: [email or web address] Performed By: #### L [id number] ####[facility] ([employer])[address] [place] [address] Glucose [Mass/Vol] 91 mg/dL Normal 70-105 [facility] Comment on above: Order Comment: Waive d Testing in the ED is performed under the ED CLIA certificate #[id number]. Result Comment: [email or web address] Performed By: #### L [id number] ####[facility] ([employer])[address] [place] [address] Glucose [Mass/Vol] 114 mg/dL High 70-105 [facility] Comment on above: Order Comment: Waive d Testing in the ED is performed under the ED CLIA certificate #[id number]. Result Comment: [email or web address] Performed By: #### L [id number] ####[facility] (BEAKER)[address] [place] [address] Glucose [Mass/Vol] 123 mg/dL High 70-105 [facility] Comment on above: Order Comment: Waive d Testing in the ED is performed under the ED CLIA certificate #[id number]. Result Comment: vsan [email or web address] Performed By: #### L [id number] ####[facility] (BEAKER)[address] [place] [address] Glucose [Mass/Vol] 142 mg/dL High 70-105 [facility] Comment on above: Order Comment: Waive d Testing in the ED is performed under the ED CLIA certificate #[id number]. Result Comment: [email or web address] Performed By: #### L [id number] ####[facility] (BEAKER)[address] [place] [address] Glucose [Mass/Vol] 152 mg/dL High 70-105 [facility] Comment on above: Order Comment: Waive d Testing in the ED is performed under the ED CLIA certificate #[id number]. Result Comment: [email or web address] [email or web address] Performed By: #### L [id number] ####[facility] (BEAKER)[address] [place] [address] Glucose [Mass/Vol] 167 mg/dL High 70-105 [facility] Comment on above: Order Comment: Waive d Testing in the ED is performed under the ED CLIA certificate #[id number]. Result Comment: [email or web address] Performed By: #### L [id number] ####[facility] (BEAKER)[address] [place] [address] POTASSIUM, WHOLE BLOODon Potassium [Moles/Vol] 4.3 mmol/L Normal 3.5-5.1 [facility] Comment on above: Performed By: #### P OTASSIUM, WHOLE BLOOD ####[facility] RESPIRATORY [id number] [facility] [address] [place] Potassium [Moles/Vol] 4.1 mmol/L Normal 3.5-5.1 [facility] Comment on above: Performed By: #### P OTAPIPERIUM, WHOLE BLOOD ####[facility] RESPIRATORY [id number] [place], [place] [address] Potassium [Moles/Vol] 4.3 mmol/L Normal 3.5-5.1 [facility] Comment on above: Performed By: #### P OTASSIUM, WHOLE BLOOD ####[facility] RESPIRATORY [id number] [address] [place] [address] PROTIME-INRon 04-23-2023 INR IN PPP BY COAGULATION ASSAY 1.98 High 0.90-1.10 [facility] Comment on above: Result Comment: ACCC P [...] CHEST 1995;108:[id number]. Performed By: #### L [id number] ####[facility] (BEAKER)[address] [place] [address] PROTHROMBIN TIME (PT) IN PPP BY COAGULATION ASSAY 22.6 Seconds High 12.3-14.8 [facility] Comment on above: Performed By: #### L [id number] ####[facility] (BEAKER)[address] [place] [address] INR IN PPP BY COAGULATION ASSAY 1.47 High 0.90-1.10 [facility] Comment on above: Result Comment: ACCC P [...] CHEST 1995;108:[id number]. Performed By: #### L [id number] ####[facility] ([employer])[address] [place] [address] PROTHROMBIN TIME (PT) IN PPP BY COAGULATION ASSAY 17.9 Seconds High 12.3-14.8 [facility] Comment on above: Performed By: #### L [id number] ####[facility] (BEAKER)[address] [place] [address] SODIUM, WHOLE BLOODon 2022 SODIUM, WHOLE BLOOD 141 Normal 136-145 [facility] Comment on above: Performed By: #### S ODIUM, WHOLE BLOOD ####[facility] RESPIRATORY [id number] [facility] [place] [place] [address] [facility] SODIUM, WHOLE BLOOD 143 Normal 136-145 [facility] Comment on above: Performed By: #### S ODIUM, WHOLE BLOOD ####[facility] RESPIRATORY [id number] [facility] [place] [address] [place] SODIUM, WHOLE BLOOD 144 Normal 136-145 [facility] Comment on above: Performed By: #### S ODIUM, WHOLE BLOOD ####[facility] RESPIRATORY [id number] [place] [address] [place] TROPONIN Ion 04-23-2023 Troponin I.cardiac [Mass/Vol] 22.65 ng/mL Critically high 0.00-0.04 [facility] Comment on above: Result Comment: JYOTI CORONADO INITIAL CRITICAL HIGH; RESPUN AND RETESTED Performed By: #### L [id number] ####[facility] ([employer])[address] [place] [address] ANESon 04-22-2023 ANES Normal [facility] APTTon 04-22-2023 ACTIVATED PARTIAL THROMBOPLASTIN TIME IN PPP BY COAGULATION ASSAY 43.4 Seconds High 25.0-35.0 [facility] Comment on above: Result Comment: Clin ical significance of the APTT is questionable in the presence of heparin. Performed By: #### L [id number] ####[facility] ([employer])[address] [place] [address] ACTIVATED PARTIAL THROMBOPLASTIN TIME IN PPP BY COAGULATION ASSAY 36.9 Seconds High 25.0-35.0 [facility] Comment on above: Result Comment: Clin ical significance of the APTT is questionable in the presence of heparin. Performed By: #### L [id number] ####[facility] ([employer])[address] [place] [address] ACTIVATED PARTIAL THROMBOPLASTIN TIME IN PPP BY COAGULATION ASSAY 40.3 Seconds High 25.0-35.0 [facility] Comment on above: Order Comment: Pre-o p diagnosis:NSTEMI (non-ST elevated myocardial infarction) (CMS/HCC) [I21.4]Acute non-ST segment elevation myocardial infarction (CMS/HCC) [I21.4]Coronary artery disease, unspecified vessel or lesion type, unspecified whether angina present, unspecified whether [place] or transplanted heart [I25.10] Result Comment: Clin ical significance of the APTT is questionable in the presence of heparin. Performed By: #### L [id number] ####[facility] ([facility])[address] [place] [address] BASIC METABOLIC PANELon 11-0 Anion gap [Moles/Vol] 9 mmol/L Normal 7-20 [facility] Comment on above: Performed By: #### L [id number] ####[facility] ([facility])[address] [place] [address] Calcium [Mass/Vol] 7.9 mg/dL Low 8.6-10.3 [facility] Comment on above: Performed By: #### L [id number] ####[facility] [facility] ([facility])[address] [place] [address] Chloride [Moles/Vol] 114 mmol/L High 98-107 [facility] Comment on above: Performed By: #### L [id number] ####[facility] ([facility])[address] [place] [address] CO2 [Moles/Vol] 25 mmol/L Normal 21-31 [facility] Comment on above: Performed By: #### L [id number] ####[facility] ([facility])[address] [place] [address] Creatinine [Mass/Vol] 0.86 mg/dL Normal 0.70-1.30 [facility] Comment on above: Performed By: #### L [id number] ####[facility] ([facility])[address] [place] [address] GLOMERULAR FILTRATION RATE ML/MIN/1.73 SQ M.PREDICTED 93.7 mL/min/1.73m*2 Normal >60.0 [facility] Comment on above: Result Comment: [facility]???s estimated glomerular filtration rate (eGFR) will no [...] of individuals. Performed By: #### L [id number] ####[facility] ([facility])[address] [place] [address] Glucose [Mass/Vol] 162 mg/dL High 70-100 [facility] Comment on above: Performed By: #### L [id number] ####[facility] ([facility])[address] [place] [address] Potassium [Moles/Vol] 4.2 mmol/L Normal 3.5-5.1 [facility] Comment on above: Performed By: #### L [id number] ####[facility] ([facility])[address] [place] [address] Sodium [Moles/Vol] 144 mmol/L Normal 136-145 [facility] Comment on above: Performed By: #### L [id number] ####[facility] ([facility])[address] [place] [address] Urea nitrogen [Mass/Vol] 19 mg/dL Normal 7-25 [facility] Comment on above: Performed By: #### L [id number] ####[facility] ([facility])[address] [place] [address] UREA NITROGEN/CREATININ E (MASS RATIO) IN SER/PLAS 22.1 Normal [facility] Comment on above: Performed By: #### L [id number] ####[facility] ([facility])[address] [place] [address] Anion gap [Moles/Vol] 7 mmol/L Normal 7-20 [facility] Comment on above: Performed By: #### L [id number] ####[facility] ([facility])[address] [place] [address] Calcium [Mass/Vol] 8.2 mg/dL Low 8.6-10.3 [facility] Comment on above: Performed By: #### L [id number] ####[facility] ([facility])[address] [place] [address] Chloride [Moles/Vol] 114 mmol/L High 98-107 [facility] Comment on above: Performed By: #### L [id number] ####[facility] ([facility])[address] [place] [address] CO2 [Moles/Vol] 29 mmol/L Normal 21-31 [facility] Comment on above: Performed By: #### L [id number] ####[facility] ([facility])[address] [place] [address] Creatinine [Mass/Vol] 0.77 mg/dL Normal 0.70-1.30 [facility] Comment on above: Performed By: #### L [id number] ####[facility] ([facility])[address] [place] [address] GLOMERULAR FILTRATION RATE ML/MIN/1.73 SQ M.PREDICTED 96.9 mL/min/1.73m*2 Normal >60.0 [facility] Comment on above: Result Comment: [facility]???s estimated glomerular filtration rate (eGFR) will no [...] of individuals. Performed By: #### L [id number] ####[facility] ([facility])[address] [place] [address] Glucose [Mass/Vol] 142 mg/dL High 70-100 [facility] Comment on above: Performed By: #### L [id number] ####[facility] ([facility])[address] [place] [address] Potassium [Moles/Vol] 3.7 mmol/L Normal 3.5-5.1 [facility] Comment on above: Performed By: #### L [id number] ####[facility] ([facility])[address] [place] [address] Sodium [Moles/Vol] 146 mmol/L High 136-145 [facility] Comment on above: Performed By: #### L [id number] ####[facility] ([facility])[address] [place] [address] Urea nitrogen [Mass/Vol] 18 mg/dL Normal 7-25 [facility] Comment on above: Performed By: #### L [id number] ####[facility] ([facility])[address] [place] [address] UREA NITROGEN/CREATININ E (MASS RATIO) IN SER/PLAS 23.4 Normal [facility] Comment on above: Performed By: #### L [id number] ####[facility] ([facility])[address] [place] [address] Anion gap [Moles/Vol] 7 mmol/L Normal 7-20 [facility] Comment on above: Order Comment: Pre-o p diagnosis:NSTEMI (non-ST elevated myocardial infarction) (CMS/HCC) [I21.4]Acute non-ST segment elevation myocardial infarction (CMS/HCC) [I21.4]Coronary artery disease, unspecified vessel or lesion type, unspecified whether angina present, unspecified whether [place] or transplanted heart [I25.10] Performed By: #### L [id number] ####[facility] ([facility])[address] [place] [address] Calcium [Mass/Vol] 8.5 mg/dL Low 8.6-10.3 [facility] Comment on above: Order Comment: Pre-o p diagnosis:NSTEMI (non-ST elevated myocardial infarction) (CMS/HCC) [I21.4]Acute non-ST segment elevation myocardial infarction (CMS/HCC) [I21.4]Coronary artery disease, unspecified vessel or lesion type, unspecified whether angina present, unspecified whether [place] or transplanted heart [I25.10] Performed By: #### L [id number] ####[facility] ([facility])[address] [place] [address] Chloride [Moles/Vol] 116 mmol/L High 98-107 [facility] Comment on above: Order Comment: Pre-o p diagnosis:NSTEMI (non-ST elevated myocardial infarction) (CMS/HCC) [I21.4]Acute non-ST segment elevation myocardial infarction (CMS/HCC) [I21.4]Coronary artery disease, unspecified vessel or lesion type, unspecified whether angina present, unspecified whether [place] or transplanted heart [I25.10] Performed By: #### L [id number] ####[facility] ([facility])[address] [facility] [place] [address] CO2 [Moles/Vol] 25 mmol/L Normal 21-31 [facility] Comment on above: Order Comment: Pre-o p diagnosis:NSTEMI (non-ST elevated myocardial infarction) (CMS/HCC) [I21.4]Acute non-ST segment elevation myocardial infarction (CMS/HCC) [I21.4]Coronary artery disease, unspecified vessel or lesion type, unspecified whether angina present, unspecified whether [place] or transplanted heart [I25.10] Performed By: #### L [id number] ####[facility] ([facility])[address] [place] [facility] [place] [address] Creatinine [Mass/Vol] 0.82 mg/dL Normal 0.70-1.30 [facility] Comment on above: Order Comment: Pre-o p diagnosis:NSTEMI (non-ST elevated myocardial infarction) (CMS/HCC) [I21.4]Acute non-ST segment elevation myocardial infarction (CMS/HCC) [I21.4]Coronary artery disease, unspecified vessel or lesion type, unspecified whether angina present, unspecified whether [place] or transplanted heart [I25.10] Performed By: #### L [id number] ####[facility] ([facility])[address] [facility] [place] [address] GLOMERULAR FILTRATION RATE ML/MIN/1.73 SQ M.PREDICTED 95.1 mL/min/1.73m*2 Normal >60.0 [facility] Comment on above: Order Comment: Pre-o p diagnosis:NSTEMI (non-ST elevated myocardial infarction) (CMS/HCC) [I21.4]Acute non-ST segment elevation myocardial infarction (CMS/HCC) [I21.4]Coronary artery disease, unspecified vessel or lesion type, unspecified whether angina present, unspecified whether [place] or transplanted heart [I25.10] Result Comment: [facility]???s estimated glomerular filtration rate (eGFR) will no [...] of individuals. Performed By: #### L [id number] ####[facility] ([employer])[address] [place] [address] Glucose [Mass/Vol] 198 mg/dL High 70-100 [facility] Comment on above: Order Comment: Pre-o p diagnosis:NSTEMI (non-ST elevated myocardial infarction) (CMS/HCC) [I21.4]Acute non-ST segment elevation myocardial infarction (CMS/HCC) [I21.4]Coronary artery disease, unspecified vessel or lesion type, unspecified whether angina present, unspecified whether [place] or transplanted heart [I25.10] Performed By: #### L [id number] ####[facility] ([facility])[address] [place] [address] Potassium [Moles/Vol] 3.1 mmol/L Low 3.5-5.1 [facility] Comment on above: Order Comment: Pre-o p diagnosis:NSTEMI (non-ST elevated myocardial infarction) (CMS/HCC) [I21.4]Acute non-ST segment elevation myocardial infarction (CMS/HCC) [I21.4]Coronary artery disease, unspecified vessel or lesion type, unspecified whether angina present, unspecified whether [place] or transplanted heart [I25.10] Performed By: #### L [id number] ####[facility] ([facility])[address] [place] [address] Sodium [Moles/Vol] 145 mmol/L Normal 136-145 [facility] Comment on above: Order Comment: Pre-o p diagnosis:NSTEMI (non-ST elevated myocardial infarction) (CMS/HCC) [I21.4]Acute non-ST segment elevation myocardial infarction (CMS/HCC) [I21.4]Coronary artery disease, unspecified vessel or lesion type, unspecified whether angina present, unspecified whether [place] or transplanted heart [I25.10] Performed By: #### L [id number] ####[facility] ([facility])[address] [place] [address] Urea nitrogen [Mass/Vol] 18 mg/dL Normal 7-25 [facility] Comment on above: Order Comment: Pre-o p diagnosis:NSTEMI (non-ST elevated myocardial infarction) (CMS/HCC) [I21.4]Acute non-ST segment elevation myocardial infarction (CMS/HCC) [I21.4]Coronary artery disease, unspecified vessel or lesion type, unspecified whether angina present, unspecified whether [place] or transplanted heart [I25.10] Performed By: #### L [id number] ####[facility] ([facility])[address] [place] [address] UREA NITROGEN/CREATININ E (MASS RATIO) IN SER/PLAS 22.0 Normal [facility] Comment on above: Order Comment: Pre-o p diagnosis:NSTEMI (non-ST elevated myocardial infarction) (CMS/HCC) [I21.4]Acute non-ST segment elevation myocardial infarction (CMS/HCC) [I21.4]Coronary artery disease, unspecified vessel or lesion type, unspecified whether angina present, unspecified whether [place] or transplanted heart [I25.10] Performed By: #### L [id number] ####[facility] ([facility])[address] [employer] [place] [address] CBCon 04-22-2023 Erythrocyte distribution width (RBC) [Ratio] 13.1 % Normal 11.5-15.0 [facility] Comment on above: Performed By: #### L [id number] ####[facility] ([facility])[address] [employer] [place] [address] ERYTHROCYTE MEAN CORPUSCULAR HEMOGLOBIN CONCENTRATION (G/DL) BY AUTOMATED 34.7 g/dL Normal 32.0-35.0 [facility] Comment on above: Performed By: #### L [id number] ####[facility] ([facility])[address] [place] [address] Hematocrit (Bld) [Volume fraction] 32.6 % Low 39.0-55.0 [facility] Comment on above: Performed By: #### L [id number] ####[facility] ([facility])[address] [address] Hemoglobin (Bld) [Mass/Vol] 11.3 g/dL Low 13.0-17.0 [facility] Comment on above: Performed By: #### L [id number] ####[facility] ([facility])[address] [place] [address] MCH (RBC) [Entitic mass] 31.1 pg Normal 27.0-33.0 [facility] Comment on above: Performed By: #### L [id number] ####[facility] ([facility])[address] [place] [address] MCV (RBC) [Entitic vol] 89.8 fL Normal 82.0-98.0 [facility] Comment on above: Performed By: #### L [id number] ####[facility] ([facility])[address] [place] [address] PLATELETS (10*3/UL) IN BLOOD AUTOMATED COUNT 107 10*3/uL Low 150-400 [facility] Comment on above: Performed By: #### L [id number] ####[facility] ([facility])[address] [place] [address] RBC (Bld) [#/Vol] 3.63 10*6/uL Low 4.20-5.70 [facility] Comment on above: Performed By: #### L [id number] ####[facility] ([facility])[address] [place] [address] WBC (Bld) [#/Vol] 18.54 10*3/uL High 4.00-10.60 [facility] Comment on above: Performed By: #### L [id number] ####[facility] ([employer])[address] [place] [address] Erythrocyte distribution width (RBC) [Ratio] 13.0 % Normal 11.5-15.0 [facility] Comment on above: Order Comment: Pre-o p diagnosis:NSTEMI (non-ST elevated myocardial infarction) (CMS/HCC) [I21.4]Acute non-ST segment elevation myocardial infarction (CMS/HCC) [I21.4]Coronary artery disease, unspecified vessel or lesion type, unspecified whether angina present, unspecified whether [place] or transplanted heart [I25.10] Performed By: #### L [id number] ####[facility] ([employer])[address] [place] [address] ERYTHROCYTE MEAN CORPUSCULAR HEMOGLOBIN CONCENTRATION (G/DL) BY AUTOMATED 34.5 g/dL Normal 32.0-35.0 [facility] Comment on above: Order Comment: Pre-o p diagnosis:NSTEMI (non-ST elevated myocardial infarction) (CMS/HCC) [I21.4]Acute non-ST segment elevation myocardial infarction (CMS/HCC) [I21.4]Coronary artery disease, unspecified vessel or lesion type, unspecified whether angina present, unspecified whether [place] or transplanted heart [I25.10] Performed By: #### L [id number] ####[facility] ([employer])[address] [place] [address] Hematocrit (Bld) [Volume fraction] 26.7 % Low 39.0-55.0 [facility] Comment on above: Order Comment: Pre-o p diagnosis:NSTEMI (non-ST elevated myocardial infarction) (CMS/HCC) [I21.4]Acute non-ST segment elevation myocardial infarction (CMS/HCC) [I21.4]Coronary artery disease, unspecified vessel or lesion type, unspecified whether angina present, unspecified whether [place] or transplanted heart [I25.10] Performed By: #### L [id number] ####[facility] ([facility])[address] [place] [address] Hemoglobin (Bld) [Mass/Vol] 9.2 g/dL Low 13.0-17.0 [facility] Comment on above: Order Comment: Pre-o p diagnosis:NSTEMI (non-ST elevated myocardial infarction) (CMS/HCC) [I21.4]Acute non-ST segment elevation myocardial infarction (CMS/HCC) [I21.4]Coronary artery disease, unspecified vessel or lesion type, unspecified whether angina present, unspecified whether [place] or transplanted heart [I25.10] Performed By: #### L [id number] ####[facility] ([employer])[address] [place] [address] MCH (RBC) [Entitic mass] 31.4 pg Normal 27.0-33.0 [facility] Comment on above: Order Comment: Pre-o p diagnosis:NSTEMI (non-ST elevated myocardial infarction) (CMS/HCC) [I21.4]Acute non-ST segment elevation myocardial infarction (CMS/HCC) [I21.4]Coronary artery disease, unspecified vessel or lesion type, unspecified whether angina present, unspecified whether [place] or transplanted heart [I25.10] Performed By: #### L [id number] ####[facility] ([employer])[address] [place] [address] MCV (RBC) [Entitic vol] 91.1 fL Normal 82.0-98.0 [facility] Comment on above: Order Comment: Pre-o p diagnosis:NSTEMI (non-ST elevated myocardial infarction) (CMS/HCC) [I21.4]Acute non-ST segment elevation myocardial infarction (CMS/HCC) [I21.4]Coronary artery disease, unspecified vessel or lesion type, unspecified whether angina present, unspecified whether [place] or transplanted heart [I25.10] Performed By: #### L [id number] ####[facility] ([employer])[address] [employer] [address] PLATELETS (10*3/UL) IN BLOOD AUTOMATED COUNT 134 10*3/uL Low 150-400 [facility] Comment on above: Order Comment: Pre-o p diagnosis:NSTEMI (non-ST elevated myocardial infarction) (CMS/HCC) [I21.4]Acute non-ST segment elevation myocardial infarction (CMS/HCC) [I21.4]Coronary artery disease, unspecified vessel or lesion type, unspecified whether angina present, unspecified whether [place] or transplanted heart [I25.10] Performed By: #### L [id number] ####[facility] ([employer])[address] [facility] [place] [address] RBC (Bld) [#/Vol] 2.93 10*6/uL Low 4.20-5.70 [facility] Comment on above: Order Comment: Pre-o p diagnosis:NSTEMI (non-ST elevated myocardial infarction) (CMS/HCC) [I21.4]Acute non-ST segment elevation myocardial infarction (CMS/HCC) [I21.4]Coronary artery disease, unspecified vessel or lesion type, unspecified whether angina present, unspecified whether [place] or transplanted heart [I25.10] Performed By: #### L [id number] ####[facility] ([employer])[address] [place] [address] WBC (Bld) [#/Vol] 21.16 10*3/uL High 4.00-10.60 [facility] Comment on above: Order Comment: Pre-o p diagnosis:NSTEMI (non-ST elevated myocardial infarction) (CMS/HCC) [I21.4]Acute non-ST segment elevation myocardial infarction (CMS/HCC) [I21.4]Coronary artery disease, unspecified vessel or lesion type, unspecified whether angina present, unspecified whether [place] or transplanted heart [I25.10] Performed By: #### L [id number] ####[facility] ([employer])[address] [place] [address] CBC WITH AUTO DIFFERENTIALon 04-22-2023 Basophils (Bld) [#/Vol] 0.01 10*3/uL Normal 0.00-0.20 [facility] Comment on above: Performed By: #### L [id number] ####[facility] (BEAKER)[address] [place] [address] Basophils/100 WBC (Bld) 0.1 % Normal 0.0-1.0 [facility] Comment on above: Performed By: #### L [id number] ####[facility] ([facility]ER)[address] [place] [address] Eosinophils (Bld) [#/Vol] 0.00 10*3/uL Normal 0.00-0.50 [facility] Comment on above: Performed By: #### L [id number] ####[facility] ([facility])[address] [place] [address] Eosinophils/100 WBC (Bld) 0.0 % Normal 0.0-6.0 [facility] Comment on above: Performed By: #### L [id number] ####[facility] ([facility])[address] [place] [address] Erythrocyte distribution width (RBC) [Ratio] 13.2 % Normal 11.5-15.0 [facility] Comment on above: Performed By: #### L [id number] ####[facility] ([facility])[address] [place] [address] ERYTHROCYTE MEAN CORPUSCULAR HEMOGLOBIN CONCENTRATION (G/DL) BY AUTOMATED 35.6 g/dL High 32.0-35.0 [facility] Comment on above: Performed By: #### L [id number] ####[facility] ([facility])[address] [place] [address] Hematocrit (Bld) [Volume fraction] 28.4 % Low 39.0-55.0 [facility] Comment on above: Performed By: #### L [id number] ####[facility] ([facility])[address] [place] [address] Hemoglobin (Bld) [Mass/Vol] 10.1 g/dL Low 13.0-17.0 [facility] Comment on above: Performed By: #### L [id number] ####[facility] ([facility])[address] [place] [address] Immature granulocytes (Bld) [#/Vol] 0.10 10*3/uL Normal 0.00-0.20 [facility] Comment on above: Performed By: #### L [id number] ####[facility] ([facility]ER)[address] [place] [address] Immature granulocytes/100 WBC (Bld) 0.7 % Normal 0.0-1.0 [facility] Comment on above: Performed By: #### L [id number] ####[facility] ([facility]ER)[address] [place] [address] IMMATURE PLATELET FRACTION % 2.3 % Normal 0.8-6.3 [facility] Comment on above: Performed By: #### L [id number] ####[facility] ([facility]ER)[address] [place] [address] Lymphocytes (Bld) [#/Vol] 0.95 10*3/uL Low 1.20-4.00 [facility] Comment on above: Performed By: #### L [id number] ####[facility] ([facility]ER)[address] [place] [address] Lymphocytes/100 WBC (Bld) 6.4 % Low 20.0-45.0 [facility] Comment on above: Performed By: #### L [id number] ####[facility] ([facility]ER)[address] [place] [address] MCH (RBC) [Entitic mass] 31.7 pg Normal 27.0-33.0 [facility] Comment on above: Performed By: #### L [id number] ####[facility] ([facility]ER)[address] [place] [address] MCV (RBC) [Entitic vol] 89.0 fL Normal 82.0-98.0 [facility] Comment on above: Performed By: #### L [id number] ####[facility] ([facility]ER)[address] [place] [address] Monocytes (Bld) [#/Vol] 1.37 10*3/uL High 0.10-1.00 [facility] Comment on above: Performed By: #### L [id number] ####[facility] ([facility]ER)[address] [place] [address] Monocytes/100 WBC (Bld) 9.3 % Normal 5.0-12.0 [facility] Comment on above: Performed By: #### L [id number] ####[facility] ([facility])[address] [place] [address] Neutrophils (Bld) [#/Vol] 12.36 10*3/uL High 1.60-7.60 [facility] Comment on above: Performed By: #### L [id number] ####[facility] ([facility])[address], [place] [address] Neutrophils/100 WBC (Bld) 83.5 % High 40.0-72.0 [facility] Comment on above: Performed By: #### L [id number] ####[facility] ([facility])[address] [address] NRBC (PER 100 WBCS) BY AUTOMATED COUNT 0.0 % Normal 0 [facility] Comment on above: Performed By: #### L [id number] ####[facility] ([facility])[address] [place] [address] PLATELETS (10*3/UL) IN BLOOD AUTOMATED COUNT 108 10*3/uL Low 150-400 [facility] Comment on above: Performed By: #### L [id number] ####[facility] ([facility])[address] [place] [address] RBC (Bld) [#/Vol] 3.19 10*6/uL Low 4.20-5.70 [facility] Comment on above: Performed By: #### L [id number] ####[facility] ([facility])[address] [place] [address] WBC (Bld) [#/Vol] 14.79 10*3/uL High 4.00-10.60 [facility] Comment on above: Performed By: #### L [id number] ####[facility] (BEAKER)[address] [place] [address] CO-OXIMETRYon 04-22-2023 CARBOXYHEMOGLOBIN/ HEMOGLOBIN TOTAL % IN BLOOD 1.5 % Normal [facility] Comment on above: Performed By: #### L [id number] ####[facility]PIR[facility] [id number] [place] [address] [facility] Hemoglobin (Bld) [Mass/Vol] 12.7 g/dL Normal [facility] Comment on above: Performed By: #### L [id number] ####[facility] [id number] [place] [address] [facility] METHEMOGLOBIN/100 IN BLOOD 0.1 % Normal 0.0-1.5 [facility] Comment on above: Performed By: #### L [id number] ####[facility] RESPIRATORY [id number] [place] [address] [facility] Oxygen saturation in Blood 71.7 % Normal [facility] Comment on above: Performed By: #### L [id number] ####[facility] RESPIRATORY [id number] [place] [address] [facility] OXYGENATED HEMOGLOBIN IN BLOOD 70.6 % Normal [facility] Comment on above: Performed By: #### L [id number] ####[facility] RESPIRAT[facility] [id number] [place] [address] [place] CONSULTon 04-22-2023 CONSULT Normal [facility] FIBRINOGENon 04-22-2023 Magnesium [Mass/Vol] 162 mg/dL Normal 150-425 [facility] Comment on above: Order Comment: Pre-o p diagnosis:NSTEMI (non-ST elevated myocardial infarction) (CMS/HCC) [I21.4]Acute non-ST segment elevation myocardial infarction (CMS/HCC) [I21.4]Coronary artery disease, unspecified vessel or lesion type, unspecified whether angina present, unspecified whether [place] or transplanted heart [I25.10] Performed By: #### L [id number] ####[facility] ([facility])[address] [place] [address] HEPATIC FUNCTION PANELon Albumin [Mass/Vol] 2.5 g/dL Low 3.5-5.7 [facility] Comment on above: Performed By: #### L [id number] ####[facility] ([facility])[address] [place] [address] ALP [Catalytic activity/Vol] 54 U/L Normal 34-104 [facility] Comment on above: Performed By: #### L [id number] ####[facility] ([facility])[address] [place] [address] ALT [Catalytic activity/Vol] 10 U/L Normal 7-52 [facility] Comment on above: Performed By: #### L [id number] ####[facility] ([facility])[address] [place] [address] AST [Catalytic activity/Vol] 34 U/L Normal 13-39 [facility] Comment on above: Performed By: #### L [id number] ####[facility] ([facility])[address] [place] [address] Bilirubin [Mass/Vol] 0.6 mg/dL Normal 0.3-1.0 [facility] Comment on above: Performed By: #### L [id number] ####[facility] ([facility])[address] [place] [address] Magnesium [Mass/Vol] 0.2 mg/dL Normal 0-0.2 [facility] Comment on above: Performed By: #### L [id number] ####[facility] ([facility])[address] [place] [address] Protein [Mass/Vol] 3.7 g/dL Low 6.0-8.3 [facility] Comment on above: Performed By: #### L [id number] ####[facility] ([facility])[address] [place] [address] HISTOLOGY - TISSUE EXAMon LAB AP CASE REPORT Normal [facility] Comment on above: Order Comment: Pre-o p diagnosis:NSTEMI (non-ST elevated myocardial infarction) (CMS/HCC) [I21.4]Acute non-ST segment elevation myocardial infarction (CMS/HCC) [I21.4]Coronary artery disease, unspecified vessel or lesion type, unspecified whether angina present, unspecified whether [place] or transplanted heart [I25.10] Result Comment: Surg ical Pathology Case: [id number] Provider: Chaitanya Ames MD Collected: 04/22/2023 0928Ordering Location: [facility] Main Operating Room Received: 04/22/2023 1923Pathologist: RAHEEM Wilsonpecimens: A) - Lymph Node, ANTERIOR MEDIASTINAL LYMPH NODE B) - Lymph Node, RIGHT INTERNAL MAMMARY LYMPH NODE FOR HISTOLOGY Performed By: #### L [id number] ####[facility] (BEAKER)[address] [place] [address] LAB AP CLINICAL INFORMATION Normal [facility] Comment on above: Order Comment: Pre-o p diagnosis:NSTEMI (non-ST elevated myocardial infarction) (CMS/HCC) [I21.4]Acute non-ST segment elevation myocardial infarction (CMS/HCC) [I21.4]Coronary artery disease, unspecified vessel or lesion type, unspecified whether angina present, unspecified whether [place] or transplanted heart [I25.10] Result Comment: Post -Op [id number] - NSTEMI (non-ST elevated myocardial infarction) (CMS/HCC) [ICD-10-CM]I21.4 - Acute non-ST segment elevation myocardial infarction (CMS/HCC) [ICD-10-CM]I25.10 - Coronary artery disease, unspecified vessel or lesion type, unspecified whether angina present, unspecified whether [place] or transplanted heart [ICD-10-CM] Performed By: #### L [id number] ####[facility] (BEAKER)[address] [place] [address] LAB AP GROSS DESCRIPTION A. Lymph Node. Normal [facility] Comment on above: Order Comment: Pre-o p diagnosis:NSTEMI (non-ST elevated myocardial infarction) (CMS/HCC) [I21.4]Acute non-ST segment elevation myocardial infarction (CMS/HCC) [I21.4]Coronary artery disease, unspecified vessel or lesion type, unspecified whether angina present, unspecified whether [place] or transplanted heart [I25.10] Result Comment: Rece [...] in 2. The adipose tissue is retained.Jenny Guajarod, Pathologists' AssistantB. Lymph Node.Received in formalin labeled Gui Ortiz, RIGHT INTERNAL MAMMARY LYMPH NODE FOR HISTOLOGY Is a yellow-vargas to pale montejo rubbery and lobulated ragged fragment 1 x 0.6 x 0.4 cm. Within the adipose tissue there is a well-circumscribed 0.4 cm anthracotic lymph node. The specimen is bisected and entirely submitted in a single cassette.Jenny Guajardo, Pathologists' Instant Potato Processor Performed By: #### L [id number] ####[facility] (BEAKER)[address] [facility] [place] [address] LAB AP MICROSCOPIC DESCRIPTION Microscopic examination performed. Normal [facility] Comment on above: Order Comment: Pre-o p diagnosis:NSTEMI (non-ST elevated myocardial infarction) (CMS/HCC) [I21.4]Acute non-ST segment elevation myocardial infarction (CMS/HCC) [I21.4]Coronary artery disease, unspecified vessel or lesion type, unspecified whether angina present, unspecified whether [place] or transplanted heart [I25.10] Performed By: #### L [id number] ####[facility] (BEAKER)[address] [facility] [place] [address] LAB AP REPORT FINAL DIAGNOSIS NARRATIVE Normal [facility] Comment on above: Order Comment: Pre-o p diagnosis:NSTEMI (non-ST elevated myocardial infarction) (CMS/HCC) [I21.4]Acute non-ST segment elevation myocardial infarction (CMS/HCC) [I21.4]Coronary artery disease, unspecified vessel or lesion type, unspecified whether angina present, unspecified whether [place] or transplanted heart [I25.10] Result Comment: A. L ymph node, anterior mediastinal, regional resection: - Two benign lymph nodes with sinus histiocytosis and anthracosis (0/2).B. Lymph node, right internal mammary, regional resection: - One benign lymph node with sinus histiocytosis and anthracosis (0/1). - Minute fragment of skeletal muscle and fibroadipose tissue with focal chronic inflammation. Performed By: #### L [id number] ####[facility] (BEAKER)[address] [place] [address] HPon 04-22-2023 HP H&P reviewed. The laurie putnam was examined and there are no changes to the H&P. Normal [facility] LACTIC ACID WITH 4 HOUR REFL EXon 04-22-2023 LACTATE (MMOL/L) IN SER/PLAS 2.3 mmol/L High 0.5-2.2 [facility] Comment on above: Order Comment: Pre-o p diagnosis:NSTEMI (non-ST elevated myocardial infarction) (CMS/HCC) [I21.4]Acute non-ST segment elevation myocardial infarction (CMS/HCC) [I21.4]Coronary artery disease, unspecified vessel or lesion type, unspecified whether angina present, unspecified whether [place] or transplanted heart [I25.10] Performed By: #### L [id number] ####[facility] (BEAKER)[address] [place] [address] LACTIC ACID, PLASMAon 2022 LACTATE (MMOL/L) IN SER/PLAS 2.6 mmol/L Critically high 0.5-2.2 [facility] Comment on above: Result Comment: Prev ious result verified on 04/22/2023 1906 on specimen/case [id number] called with component Lactate for procedure Lactic acid, plasma with value 2.7 mmol/L. Performed By: #### L [id number] ####[facility] (BEAKER)[address] [place] [address] LACTATE (MMOL/L) IN SER/PLAS 2.7 mmol/L Critically high 0.5-2.2 [facility] Comment on above: Performed By: #### L [id number] ####[facility] (BEAKER)[address] [place] [address] MAGNESIUMon 04-22-2023 Magnesium [Mass/Vol] 2.1 mg/dL Normal 1.9-2.7 [facility] Comment on above: Performed By: #### L [id number] ####[facility] ([employer])[address] [place] [address] Magnesium [Mass/Vol] 2.4 mg/dL Normal 1.9-2.7 [facility] Comment on above: Order Comment: Pre-o p diagnosis:NSTEMI (non-ST elevated myocardial infarction) (CMS/HCC) [I21.4]Acute non-ST segment elevation myocardial infarction (CMS/HCC) [I21.4]Coronary artery disease, unspecified vessel or lesion type, unspecified whether angina present, unspecified whether [place] or 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] Performed By: #### L [id number] ####[facility] ([employer])[address] [place] [address] OPNOTEon 04-22-2023 OPNOTE Normal [facility] PHOSPHORUSon 04-22-2023 Magnesium [Mass/Vol] 3.6 mg/dL Normal 2.5-5.0 [facility] Comment on above: Performed By: #### L [id number] ####[facility] ([employer])[address] [place] [address] POCT ACTIVATED CLOTTING TIME UNSOLICITED RESULTSon 04-22-2023 POC ACTIVATED CLOTTING TIME 132 sec Normal 82-152 [facility] Comment on above: Performed By: #### L [id number] ####[facility] ([employer])[address] [place] [address] POC ACTIVATED CLOTTING TIME 341 sec High 82-152 [facility] Comment on above: Performed By: #### L [id number] ####[facility] ([employer])[address] [place] [address] POC ACTIVATED CLOTTING TIME 473 sec High 82-152 [facility] Comment on above: Performed By: #### L [id number] ####[facility] ([employer])[address] [place] [address] POC ACTIVATED CLOTTING TIME 516 sec High 82-152 [facility] Comment on above: Performed By: #### L [id number] ####[facility] (BEAKER)[address] [place] [address] POC ACTIVATED CLOTTING TIME 460 sec High 82-152 [facility] Comment on above: Performed By: #### L [id number] ####[facility] (BEAKER)[address] [place] [address] POC ACTIVATED CLOTTING TIME 446 sec High 82-152 [facility] Comment on above: Performed By: #### L [id number] ####[facility] (BEAKER)[address] [place] [address] POC ACTIVATED CLOTTING TIME 479 sec High 82-152 [facility] Comment on above: Performed By: #### L [id number] ####[facility] (BEAKER)[address] [place] [address] POC ACTIVATED CLOTTING TIME 447 sec High 82-152 [facility] Comment on above: Performed By: #### L [id number] ####[facility] (BEAKER)[address] [place] [address] POC ACTIVATED CLOTTING TIME 596 sec High 82-152 [facility] Comment on above: Performed By: #### L [id number] ####[facility] (BE[facility]ER)[address] [place] [address] POC ACTIVATED CLOTTING TIME 602 sec High 82-152 [facility] Comment on above: Performed By: #### L [id number] ####[facility] ([facility]ER)[address] [place] [address] POC ACTIVATED CLOTTING TIME 143 sec Normal 82-152 [facility] Comment on above: Performed By: #### L [id number] ####[facility] (BE[facility]ER)[address] [place] [address] POCT GLUCOSE METER UNSOLICIT ED RESULTSon 04-22-2023 Glucose [Mass/Vol] 156 mg/dL High 70-105 [facility] Comment on above: Order Comment: Waive d Testing in the ED is performed under the ED CLIA certificate #[id number]. Result Comment: [email or web address] Performed By: #### L [id number] ####[facility] ([facility])[address] [place] [address] Glucose [Mass/Vol] 121 mg/dL High 70-105 [facility] Comment on above: Order Comment: Waive d Testing in the ED is performed under the ED CLIA certificate #[id number]. Result Comment: [email or web address] [email or web address] Performed By: #### L [id number] ####[facility] ([facility])[address] [place] [address] Glucose [Mass/Vol] 122 mg/dL High 70-105 [facility] Comment on above: Order Comment: Waive d Testing in the ED is performed under the ED CLIA certificate #[id number]. Result Comment: [email or web address] man Performed By: #### L [id number] ####[facility] ([facility])[address] [place] [address] Glucose [Mass/Vol] 137 mg/dL High 70-105 [facility] Comment on above: Order Comment: Waive d Testing in the ED is performed under the ED CLIA certificate #[id number]. Result Comment: [email or web address] Performed By: #### L [id number] ####[facility] ([facility])[address] [place] [address] Glucose [Mass/Vol] 107 mg/dL High 70-105 [facility] Comment on above: Order Comment: Waive d Testing in the ED is performed under the ED CLIA certificate #[id number]. Result Comment: [email or web address] Performed By: #### L [id number] ####[facility] ([facility])[address] [place] [address] POCT PERFUSION PANEL UNSOLIC ITED RESULTSon 04-22-2023 CO2 [Moles/Vol] 25.0 mmol/L Normal 21.0-29.0 [facility] Comment on above: Performed By: #### L [id number] ####[facility] ([facility])[address] [place] [address] Glucose [Mass/Vol] 195 mg/dL High 70-105 [facility] Comment on above: Performed By: #### L [id number] ####[facility] (BEAKER)[address] [place] [address] HCO3 (Bld) [Moles/Vol] 23.6 mmol/L Normal 23.0-28.0 [facility] Comment on above: Performed By: #### L [id number] ####[facility] ([facility]ER)[address] [place] [address] Hematocrit (Bld) [Volume fraction] 27 % Low 38-51 [facility] Comment on above: Performed By: #### L [id number] ####[facility] ([facility])[address] [place] [address] Hemoglobin (Bld) [Mass/Vol] 9.2 g/dL Low 12.0-17.0 [facility] Comment on above: Performed By: #### L [id number] ####[facility] ([facility])[address] [place] [address] POCT BASE EXCESS -3.0 mmol/L Low -2.0-3.0 [facility] Comment on above: Performed By: #### L [id number] ####[facility] (BEAKER)[address] [place] [address] POCT IONIZED CALCIUM 1.35 mmol/L High 1.12-1.32 [facility] Comment on above: Performed By: #### L [id number] ####[facility] (BEAKER)[address] [place] [address] POCT PCO2 47.6 mmHg Normal 41.0-51.0 [facility] Comment on above: Performed By: #### L [id number] ####[facility] (BEAKER)[address] [place] [address] POCT PH 7.30 Low 7.31-7.41 [facility] Comment on above: Performed By: #### L [id number] ####[facility] ([facility]ER)[address] [place] [address] POCT PO2 355 mmHg High 80-105 [facility] Comment on above: Performed By: #### L [id number] ####[facility] (BEAKER)[address] [place] [address] POCT SO2 100 % High 95-98 [facility] Comment on above: Performed By: #### L [id number] ####[facility] (BEAKER)[address] [place] [address] Potassium [Moles/Vol] 3.2 mmol/L Low 3.5-4.9 [facility] Comment on above: Performed By: #### L [id number] ####[facility] (BEAKER)[address] [place] [address] Sodium [Moles/Vol] 146 mmol/L Normal 138.0-146.0 [facility] Comment on above: Performed By: #### L [id number] ####[facility] (BEAKER)[address] [place] [address] CO2 [Moles/Vol] 26.0 mmol/L Normal 21.0-29.0 [facility] Comment on above: Performed By: #### L [id number] ####[facility] (BEAKER)[address] [place] [address] Glucose [Mass/Vol] 196 mg/dL High 70-105 [facility] Comment on above: Performed By: #### L [id number] ####[facility] (BEAKER)[address] [place] [address] HCO3 (Bld) [Moles/Vol] 24.2 mmol/L Normal 23.0-28.0 [facility] Comment on above: Performed By: #### L [id number] ####[facility] ([facility]ER)[address] [place] [address] Hematocrit (Bld) [Volume fraction] 21 % Low 38-51 [facility] Comment on above: Performed By: #### L [id number] ####[facility] ([facility]ER)[address] [place] [address] Hemoglobin (Bld) [Mass/Vol] 7.1 g/dL Low 12.0-17.0 [facility] Comment on above: Performed By: #### L [id number] ####[facility] ([facility]ER)[address] [place] [address] POCT BASE EXCESS -3.0 mmol/L Low -2.0-3.0 [facility] Comment on above: Performed By: #### L [id number] ####[facility] (BE[facility]ER)[address] [place] [address] POCT IONIZED CALCIUM 1.19 mmol/L Normal 1.12-1.32 [facility] Comment on above: Performed By: #### L [id number] ####[facility] ([facility]ER)[address] [place] [address] POCT PCO2 52.4 mmHg High 41.0-51.0 [facility] Comment on above: Performed By: #### L [id number] ####[facility] ([facility]ER)[address] [place] [address] POCT PH 7.27 Low 7.31-7.41 [facility] Comment on above: Performed By: #### L [id number] ####[facility] ([facility]ER)[address] [place] [address] POCT PO2 488 mmHg High 80-105 [facility] Comment on above: Performed By: #### L [id number] ####[facility] (BEAKER)[address] [place] [address] POCT SO2 100 % High 95-98 [facility] Comment on above: Performed By: #### L [id number] ####[facility] ([facility]ER)[address] [place], [place] [address] Potassium [Moles/Vol] 3.7 mmol/L Normal 3.5-4.9 [facility] Comment on above: Performed By: #### L [id number] ####[facility] (BEAKER)[address] [place] [address] Sodium [Moles/Vol] 145 mmol/L Normal 138.0-146.0 [facility] Comment on above: Performed By: #### L [id number] ####[facility] (BEAKER)[address] [place] [address] CO2 [Moles/Vol] 24.0 mmol/L Normal 21.0-29.0 [facility] Comment on above: Performed By: #### L [id number] ####[facility] (BEAKER)[address] [place] [address] Glucose [Mass/Vol] 177 mg/dL High 70-105 [facility] Comment on above: Performed By: #### L [id number] ####[facility] (BEAKER)[address] [place] [address] HCO3 (Bld) [Moles/Vol] 22.2 mmol/L Low 23.0-28.0 [facility] Comment on above: Performed By: #### L [id number] ####[facility] (BEAKER)[address] [place] [address] Hematocrit (Bld) [Volume fraction] 21 % Low 38-51 [facility] Comment on above: Performed By: #### L [id number] ####[facility] (BE[facility]ER)[address] [place] [address] Hemoglobin (Bld) [Mass/Vol] 7.1 g/dL Low 12.0-17.0 [facility] Comment on above: Performed By: #### L [id number] ####[facility] (BEAKER)[address] [place] [address] POCT BASE EXCESS -4.0 mmol/L Low -2.0-3.0 [facility] Comment on above: Performed By: #### L [id number] ####[facility] ([facility]AKER)[address] [place] [address] POCT IONIZED CALCIUM 1.32 mmol/L Normal 1.12-1.32 [facility] Comment on above: Performed By: #### L [id number] ####[facility] ([facility]ER)[address] [place] [address] POCT PCO2 44.7 mmHg Normal 41.0-51.0 [facility] Comment on above: Performed By: #### L [id number] ####[facility] ([facility]ER)[address] [place] [address] POCT PH 7.30 Low 7.31-7.41 [facility] Comment on above: Performed By: #### L [id number] ####[facility] ([facility]AKER)[address] [place] [address] POCT PO2 449 mmHg High 80-105 [facility] Comment on above: Performed By: #### L [id number] ####[facility] ([facility]AKER)[address] [place] [address] POCT SO2 100 % High 95-98 [facility] Comment on above: Performed By: #### L [id number] ####[facility] ([facility]AKER)[address], [place] [address] Potassium [Moles/Vol] 4.4 mmol/L Normal 3.5-4.9 [facility] Comment on above: Performed By: #### L [id number] ####[facility] ([facility]ER)[address], [place] [address] Sodium [Moles/Vol] 141 mmol/L Normal 138.0-146.0 [facility] Comment on above: Performed By: #### L [id number] ####[facility] ([facility]ER)[address], [place] [address] CO2 [Moles/Vol] 25.0 mmol/L Normal 21.0-29.0 [facility] Comment on above: Performed By: #### L [id number] ####[facility] ([facility]ER)[address] [place] [address] Glucose [Mass/Vol] 171 mg/dL High 70-105 [facility] Comment on above: Performed By: #### L [id number] ####[facility] ([facility] [address] HCO3 (Bld) [Moles/Vol] 24.0 mmol/L Normal 23.0-28.0 [facility] Comment on above: Performed By: #### L [id number] ####[facility] ([facility] [place] [address] Hematocrit (Bld) [Volume fraction] 26 % Low 38-51 [facility] Comment on above: Performed By: #### L [id number] ####[facility] ([facility])[address] [place] [address] Hemoglobin (Bld) [Mass/Vol] 8.8 g/dL Low 12.0-17.0 [facility] Comment on above: Performed By: #### L [id number] ####[facility] ([facility])[address] [place] [address] POCT BASE EXCESS -1.0 mmol/L Normal -2.0-3.0 [facility] Comment on above: Performed By: #### L [id number] ####[facility] ([facility])[address] [place] [address] POCT IONIZED CALCIUM 1.06 mmol/L Low 1.12-1.32 [facility] Comment on above: Performed By: #### L [id number] ####[facility] ([facility] [place] [address] POCT PCO2 38.1 mmHg Low 41.0-51.0 [facility] Comment on above: Performed By: #### L [id number] ####[facility] (BEAKER)[address] [place] [address] POCT PH 7.41 Normal 7.31-7.41 [facility] Comment on above: Performed By: #### L [id number] ####[facility] (BEAKER)[address] [place] [address] POCT PO2 534 mmHg High 80-105 [facility] Comment on above: Performed By: #### L [id number] ####[facility] ([facility]ER)[address] [place] [address] POCT SO2 100 % High 95-98 [facility] Comment on above: Performed By: #### L [id number] ####[facility] (BEAKER)[address] [place] [address] Potassium [Moles/Vol] 4.1 mmol/L Normal 3.5-4.9 [facility] Comment on above: Performed By: #### L [id number] ####[facility] (BEAKER)[address] [place] [address] Sodium [Moles/Vol] 141 mmol/L Normal 138.0-146.0 [facility] Comment on above: Performed By: #### L [id number] ####[facility] (BE[facility]ER)[address] [place] [address] CO2 [Moles/Vol] 27.0 mmol/L Normal 21.0-29.0 [facility] Comment on above: Performed By: #### L [id number] ####[facility] (BEAKER)[address] [place] [address] Glucose [Mass/Vol] 187 mg/dL High 70-105 [facility] Comment on above: Performed By: #### L [id number] ####[facility] (BEAKER)[address] [place] [address] HCO3 (Bld) [Moles/Vol] 25.8 mmol/L Normal 23.0-28.0 [facility] Comment on above: Performed By: #### L [id number] ####[facility] (BE[facility]ER)[address] [place] [address] Hematocrit (Bld) [Volume fraction] 26 % Low 38-51 [facility] Comment on above: Performed By: #### L [id number] ####[facility] ([facility]ER)[address] [place] [address] Hemoglobin (Bld) [Mass/Vol] 8.8 g/dL Low 12.0-17.0 [facility] Comment on above: Performed By: #### L [id number] ####[facility] (BEAKER)[address] [place] [address] POCT BASE EXCESS 1.0 mmol/L Normal -2.0-3.0 [facility] Comment on above: Performed By: #### L [id number] ####[facility] ([facility])[address] [place] [address] POCT IONIZED CALCIUM 1.06 mmol/L Low 1.12-1.32 [facility] Comment on above: Performed By: #### L [id number] ####[facility] ([facility])[address] [place] [address] POCT PCO2 40.4 mmHg Low 41.0-51.0 [facility] Comment on above: Performed By: #### L [id number] ####[facility] ([facility])[address] [place] [address] POCT PH 7.41 Normal 7.31-7.41 [facility] Comment on above: Performed By: #### L [id number] ####[facility] ([facility]ER)[address] [place] [address] POCT PO2 506 mmHg High 80-105 [facility] Comment on above: Performed By: #### L [id number] ####[facility] [facility] ([facility]AKER)[address] [place] [address] POCT SO2 100 % High 95-98 [facility] Comment on above: Performed By: #### L [id number] ####[facility] ([facility]AK[facility])[address] [place] [address] Potassium [Moles/Vol] 4.2 mmol/L Normal 3.5-4.9 [facility] Comment on above: Performed By: #### L [id number] ####[facility] ([facility]AK[facility])[address] [place] [address] Sodium [Moles/Vol] 141 mmol/L Normal 138.0-146.0 [facility] Comment on above: Performed By: #### L [id number] ####[facility] (BEAKER)[address] [place] [address] CO2 [Moles/Vol] 23.0 mmol/L Normal 21.0-29.0 [facility] Comment on above: Performed By: #### L [id number] ####[facility] (BEAKER)[address] [place] [address] Glucose [Mass/Vol] 211 mg/dL High 70-105 [facility] Comment on above: Performed By: #### L [id number] ####[facility] LAB (BEAKER)[address] [place] [address] HCO3 (Bld) [Moles/Vol] 22.1 mmol/L Low 23.0-28.0 [facility] Comment on above: Performed By: #### L [id number] ####[facility] LAB (BEAKER)[address] [place] [address] Hematocrit (Bld) [Volume fraction] 28 % Low 38-51 [facility] Comment on above: Performed By: #### L [id number] ####[facility] (BEAKER)[address] [place] [address] Hemoglobin (Bld) [Mass/Vol] 9.5 g/dL Low 12.0-17.0 [facility] Comment on above: Performed By: #### L [id number] ####[facility] (BEAKER)[address] [place] [address] POCT BASE EXCESS -3.0 mmol/L Low -2.0-3.0 [facility] Comment on above: Performed By: #### L [id number] ####[facility] (BEAKER)[address] [place] [address] POCT IONIZED CALCIUM 1.08 mmol/L Low 1.12-1.32 [facility] Comment on above: Performed By: #### L [id number] ####[facility] (BEAKER)[address] [place] [address] POCT PCO2 38.1 mmHg Low 41.0-51.0 [facility] Comment on above: Performed By: #### L [id number] ####[facility] (BEAKER)[address] [place] [address] POCT PH 7.37 Normal 7.31-7.41 [facility] Comment on above: Performed By: #### L [id number] ####[facility] (BEAKER)[address] [place] [address] POCT PO2 418 mmHg High 80-105 [facility] Comment on above: Performed By: #### L [id number] ####[facility] (BEAKER)[address] [place] [address] POCT SO2 100 % High 95-98 [facility] Comment on above: Performed By: #### L [id number] ####[facility] (BEAKER)[address] [place] [address] Potassium [Moles/Vol] 4.7 mmol/L Normal 3.5-4.9 [facility] Comment on above: Performed By: #### L [id number] ####[facility] (BEAKER)[address] [place] [address] Sodium [Moles/Vol] 137 mmol/L Low 138.0-146.0 [facility] Comment on above: Performed By: #### L [id number] ####[facility] (BEAKER)[address] [place] [address] CO2 [Moles/Vol] 24.0 mmol/L Normal 21.0-29.0 [facility] Comment on above: Performed By: #### L [id number] ####[facility] (BEAKER)[address] [place] [address] Glucose [Mass/Vol] 203 mg/dL High 70-105 [facility] Comment on above: Performed By: #### L [id number] ####[facility] (BEAKER)[address] [address] HCO3 (Bld) [Moles/Vol] 22.6 mmol/L Low 23.0-28.0 [facility] Comment on above: Performed By: #### L [id number] ####[facility] ([facility] [address] Hematocrit (Bld) [Volume fraction] 26 % Low 38-51 [facility] Comment on above: Performed By: #### L [id number] ####[facility] ([facility])[address] [address] Hemoglobin (Bld) [Mass/Vol] 8.8 g/dL Low 12.0-17.0 [facility] Comment on above: Performed By: #### L [id number] ####[facility] ([facility])[address] [address] POCT BASE EXCESS -2.0 mmol/L Normal -2.0-3.0 [facility] Comment on above: Performed By: #### L [id number] ####[facility] ([facility])[address] [address] POCT IONIZED CALCIUM 1.06 mmol/L Low 1.12-1.32 [facility] Comment on above: Performed By: #### L [id number] ####[facility] ([facility])[address] [address] POCT PCO2 38.7 mmHg Low 41.0-51.0 [facility] Comment on above: Performed By: #### L [id number] ####[facility] LAB (BEAKER)[address] [address] POCT PH 7.38 Normal 7.31-7.41 [facility] Comment on above: Performed By: #### L [id number] ####[facility] LAB (BEAKER)[address] [place] [address] POCT PO2 377 mmHg High 80-105 [facility] Comment on above: Performed By: #### L [id number] ####[facility] (BEAKER)[address] [place] [address] POCT SO2 100 % High 95-98 [facility] Comment on above: Performed By: #### L [id number] ####[facility] (BEAKER)[address] [place] [address] Potassium [Moles/Vol] 5.0 mmol/L High 3.5-4.9 [facility] Comment on above: Performed By: #### L [id number] ####[facility] LAB (BEAKER)[address] [place] [address] Sodium [Moles/Vol] 137 mmol/L Low 138.0-146.0 [facility] Comment on above: Performed By: #### L [id number] ####[facility] LAB (BEAKER)[address] [place] [address] CO2 [Moles/Vol] 24.0 mmol/L Normal 21.0-29.0 [facility] Comment on above: Performed By: #### L [id number] ####[facility] LAB (BEAKER)[address] [place] [address] Glucose [Mass/Vol] 193 mg/dL High 70-105 [facility] Comment on above: Performed By: #### L [id number] ####[facility] (BEAKER)[address] [place] [address] HCO3 (Bld) [Moles/Vol] 23.3 mmol/L Normal 23.0-28.0 [facility] Comment on above: Performed By: #### L [id number] ####[facility] (BEAKER)[address] [place] [address] Hematocrit (Bld) [Volume fraction] 28 % Low 38-51 [facility] Comment on above: Performed By: #### L [id number] ####[facility] (BEAKER)[address] [place] [address] Hemoglobin (Bld) [Mass/Vol] 9.5 g/dL Low 12.0-17.0 [facility] Comment on above: Performed By: #### L [id number] ####[facility] (BEAKER)[address] [place] [address] POCT BASE EXCESS -2.0 mmol/L Normal -2.0-3.0 [facility] Comment on above: Performed By: #### L [id number] ####[facility] LAB (BEAKER)[address] [place] [address] POCT IONIZED CALCIUM 1.07 mmol/L Low 1.12-1.32 [facility] Comment on above: Performed By: #### L [id number] ####[facility] (BEAKER)[address] [place] [address] POCT PCO2 38.7 mmHg Low 41.0-51.0 [facility] Comment on above: Performed By: #### L [id number] ####[facility] (BEAKER)[address] [place] [address] POCT PH 7.39 Normal 7.31-7.41 [facility] Comment on above: Performed By: #### L [id number] ####[facility] (BEAKER)[address] [place] [address] POCT PO2 367 mmHg High 80-105 [facility] Comment on above: Performed By: #### L [id number] ####[facility] (BEAKER)[address] [place] [address] POCT SO2 100 % High 95-98 [facility] Comment on above: Performed By: #### L [id number] ####[facility] (BEAKER)[address] [place] [address] Potassium [Moles/Vol] 5.6 mmol/L High 3.5-4.9 [facility] Comment on above: Performed By: #### L [id number] ####[facility] (BEAKER)[address] [place] [address] Sodium [Moles/Vol] 138 mmol/L Normal 138.0-146.0 [facility] Comment on above: Performed By: #### L [id number] ####[facility] LAB (BEAKER)[address] [place] [address] CO2 [Moles/Vol] 25.0 mmol/L Normal 21.0-29.0 [facility] Comment on above: Performed By: #### L [id number] ####[facility] LAB (BEAKER)[address] [place] [address] Glucose [Mass/Vol] 165 mg/dL High 70-105 [facility] Comment on above: Performed By: #### L [id number] ####[facility] LAB (BEAKER)[address] [place] [address] HCO3 (Bld) [Moles/Vol] 23.5 mmol/L Normal 23.0-28.0 [facility] Comment on above: Performed By: #### L [id number] ####[facility] LAB (BEAKER)[address] [place] [address] Hematocrit (Bld) [Volume fraction] 27 % Low 38-51 [facility] Comment on above: Performed By: #### L [id number] ####[facility] (BEAKER)[address] [place] [address] Hemoglobin (Bld) [Mass/Vol] 9.2 g/dL Low 12.0-17.0 [facility] Comment on above: Performed By: #### L [id number] ####[facility] (BEAKER)[address] [place] [address] POCT BASE EXCESS -1.0 mmol/L Normal -2.0-3.0 [facility] Comment on above: Performed By: #### L [id number] ####[facility] (BEAKER)[address] [place] [address] POCT IONIZED CALCIUM 1.08 mmol/L Low 1.12-1.32 [facility] Comment on above: Performed By: #### L [id number] ####[facility] (BEAKER)[address] [place] [address] POCT PCO2 38.4 mmHg Low 41.0-51.0 [facility] Comment on above: Performed By: #### L [id number] ####[facility] (BEAKER)[address] [place] [address] POCT PH 7.39 Normal 7.31-7.41 [facility] Comment on above: Performed By: #### L [id number] ####[facility] (BEAKER)[address] [place] [address] POCT PO2 387 mmHg High 80-105 [facility] Comment on above: Performed By: #### L [id number] ####[facility] (BEAKER)[address] [place] [address] POCT SO2 100 % High 95-98 [facility] Comment on above: Performed By: #### L [id number] ####[facility] (BEAKER)[address] [place] [address] Potassium [Moles/Vol] 5.9 mmol/L High 3.5-4.9 [facility] Comment on above: Performed By: #### L [id number] ####[facility] (BEAKER)[address] [place] [address] Sodium [Moles/Vol] 138 mmol/L Normal 138.0-146.0 [facility] Comment on above: Performed By: #### L [id number] ####[facility] (BEAKER)[address] [place] [address] CO2 [Moles/Vol] 26.0 mmol/L Normal 21.0-29.0 [facility] Comment on above: Performed By: #### L [id number] ####[facility] (BEAKER)[address] [place] [address] Glucose [Mass/Vol] 142 mg/dL High 70-105 [facility] Comment on above: Performed By: #### L [id number] ####[facility] (BEAKER)[address] [place] [address] HCO3 (Bld) [Moles/Vol] 24.5 mmol/L Normal 23.0-28.0 [facility] Comment on above: Performed By: #### L [id number] ####[facility] ([facility])[address] [place] [address] Hematocrit (Bld) [Volume fraction] 24 % Low 38-51 [facility] Comment on above: Performed By: #### L [id number] ####[facility] ([facility])[address] [place] [address] Hemoglobin (Bld) [Mass/Vol] 8.2 g/dL Low 12.0-17.0 [facility] Comment on above: Performed By: #### L [id number] ####[facility] ([facility])[address] [address] POCT BASE EXCESS -1.0 mmol/L Normal -2.0-3.0 [facility] Comment on above: Performed By: #### L [id number] ####[facility] ([facility])[address] [place] [address] POCT IONIZED CALCIUM 0.99 mmol/L Low 1.12-1.32 [facility] Comment on above: Performed By: #### L [id number] ####[facility] ([facility])[address] [address] POCT PCO2 44.6 mmHg Normal 41.0-51.0 [facility] Comment on above: Performed By: #### L [id number] ####[facility] ([facility])[address] [address] POCT PH 7.35 Normal 7.31-7.41 [facility] Comment on above: Performed By: #### L [id number] ####[facility] LAB (BEAKER)[address] [place] [address] POCT PO2 462 mmHg High 80-105 [facility] Comment on above: Performed By: #### L [id number] ####[facility] (BEAKER)[address] [place] [address] POCT SO2 100 % High 95-98 [facility] Comment on above: Performed By: #### L [id number] ####[facility] (BEAKER)[address] [place] [address] Potassium [Moles/Vol] 6.2 mmol/L Critically high 3.5-4.9 [facility] Comment on above: Performed By: #### L [id number] ####[facility] (BEAKER)[address] [place] [address] Sodium [Moles/Vol] 136 mmol/L Low 138.0-146.0 [facility] Comment on above: Performed By: #### L [id number] ####[facility] (BEAKER)[address] [place] [address] CO2 [Moles/Vol] 24.0 mmol/L Normal 21.0-29.0 [facility] Comment on above: Performed By: #### L [id number] ####[facility] (BEAKER)[address] [place] [address] Glucose [Mass/Vol] 151 mg/dL High 70-105 [facility] Comment on above: Performed By: #### L [id number] ####[facility] (BEAKER)[address] [place] [address] HCO3 (Bld) [Moles/Vol] 22.6 mmol/L Low 23.0-28.0 [facility] Comment on above: Performed By: #### L [id number] ####[facility] (BEAKER)[address] [place] [address] Hematocrit (Bld) [Volume fraction] 38 % Normal 38-51 [facility] Comment on above: Performed By: #### L [id number] ####[facility] (BEAKER)[address] [place] [address] Hemoglobin (Bld) [Mass/Vol] 12.9 g/dL Normal 12.0-17.0 [facility] Comment on above: Performed By: #### L [id number] ####[facility] ([facility])[address] [place] [address] POCT BASE EXCESS -4.0 mmol/L Low -2.0-3.0 [facility] Comment on above: Performed By: #### L [id number] ####[facility] ([facility])[address] [place] [address] POCT IONIZED CALCIUM 1.25 mmol/L Normal 1.12-1.32 [facility] Comment on above: Performed By: #### L [id number] ####[facility] ([facility])[address] [place] [address] POCT PCO2 47.5 mmHg Normal 41.0-51.0 [facility] Comment on above: Performed By: #### L [id number] ####[facility] ([facility])[address] [place] [address] POCT PH 7.29 Low 7.31-7.41 [facility] Comment on above: Performed By: #### L [id number] ####[facility] ([facility])[address] [place] [address] POCT PO2 336 mmHg High 80-105 [facility] Comment on above: Performed By: #### L [id number] ####[facility] ([facility])[address] [place] [address] POCT SO2 100 % High 95-98 [facility] Comment on above: Performed By: #### L [id number] ####[facility] ([facility])[address] [place] [address] Potassium [Moles/Vol] 4.4 mmol/L Normal 3.5-4.9 [facility] Comment on above: Performed By: #### L [id number] ####[facility] (BEAKER)[address] [place] [address] Sodium [Moles/Vol] 139 mmol/L Normal 138.0-146.0 [facility] Comment on above: Performed By: #### L [id number] ####[facility] (BEAKER)[address] [place] [address] CO2 [Moles/Vol] 23.0 mmol/L Normal 21.0-29.0 [facility] Comment on above: Performed By: #### L [id number] ####[facility] (BEAKER)[address] [place] [address] Glucose [Mass/Vol] 123 mg/dL High 70-105 [facility] Comment on above: Performed By: #### L [id number] ####[facility] (BEAKER)[address] [place] [address] HCO3 (Bld) [Moles/Vol] 22.1 mmol/L Low 23.0-28.0 [facility] Comment on above: Performed By: #### L [id number] ####[facility] (BEAKER)[address] [place] [address] Hematocrit (Bld) [Volume fraction] 38 % Normal 38-51 [facility] Comment on above: Performed By: #### L [id number] ####[facility] (BEAKER)[address] [place] [address] Hemoglobin (Bld) [Mass/Vol] 12.9 g/dL Normal 12.0-17.0 [facility] Comment on above: Performed By: #### L [id number] ####[facility] (BEAKER)[address] [place] [address] POCT BASE EXCESS -3.0 mmol/L Low -2.0-3.0 [facility] Comment on above: Performed By: #### L [id number] ####[facility] (BEAKER)[address] [place] [address] POCT IONIZED CALCIUM 1.25 mmol/L Normal 1.12-1.32 [facility] Comment on above: Performed By: #### L [id number] ####[facility] ([facility])[address] [address] POCT PCO2 39.3 mmHg Low 41.0-51.0 [facility] Comment on above: Performed By: #### L [id number] ####[facility] ([facility])[address] [address] POCT PH 7.36 Normal 7.31-7.41 [facility] Comment on above: Performed By: #### L [id number] ####[facility] ([facility])[address] [address] POCT PO2 412 mmHg High 80-105 [facility] Comment on above: Performed By: #### L [id number] ####[facility] ([facility])[address] [address] POCT SO2 100 % High 95-98 [facility] Comment on above: Performed By: #### L [id number] ####[facility] ([facility])[address] [address] Potassium [Moles/Vol] 3.8 mmol/L Normal 3.5-4.9 [facility] Comment on above: Performed By: #### L [id number] ####[facility] ([facility])[address] [address] Sodium [Moles/Vol] 140 mmol/L Normal 138.0-146.0 [facility] Comment on above: Performed By: #### L [id number] ####[facility] ([facility])[address] [place] [address] PROTIME-INRon 04-22-2023 INR IN PPP BY COAGULATION ASSAY 1.60 High 0.90-1.10 [facility] Comment on above: Result Comment: ACCC P [...] CHEST 1995;108:231S-246S. Performed By: #### L [id number] ####[facility] ([employer])[address] [place] [address] PROTHROMBIN TIME (PT) IN PPP BY COAGULATION ASSAY 19.1 Seconds High 12.3-14.8 [facility] Comment on above: Performed By: #### L [id number] ####[facility] ([employer])[address] [place] [address] INR IN PPP BY COAGULATION ASSAY 1.72 High 0.90-1.10 [facility] Comment on above: Result Comment: ACCC P [...] CHEST 1995;108:231S-246S. Performed By: #### L [id number] ####[facility] (BEAKER)[address] [facility] [place] [place] [address] PROTHROMBIN TIME (PT) IN PPP BY COAGULATION ASSAY 20.2 Seconds High 12.3-14.8 [facility] Comment on above: Performed By: #### L [id number] ####[facility] (BEAKER)[address] [address] INR IN PPP BY COAGULATION ASSAY 2.00 High 0.90-1.10 [facility] Comment on above: Order Comment: Pre-o p diagnosis:NSTEMI (non-ST elevated myocardial infarction) (CMS/HCC) [I21.4]Acute non-ST segment elevation myocardial infarction (CMS/HCC) [I21.4]Coronary artery disease, unspecified vessel or lesion type, unspecified whether angina present, unspecified whether [place] or transplanted heart [I25.10] Result Comment: ACCC [...] CHEST 1995;108:231S-246S. Performed By: #### L [id number] ####[facility] ([employer])[address] [place] [address] PROTHROMBIN TIME (PT) IN PPP BY COAGULATION ASSAY 22.8 Seconds High 12.3-14.8 [facility] Comment on above: Order Comment: Pre-o p diagnosis:NSTEMI (non-ST elevated myocardial infarction) (CMS/HCC) [I21.4]Acute non-ST segment elevation myocardial infarction (CMS/HCC) [I21.4]Coronary artery disease, unspecified vessel or lesion type, unspecified whether angina present, unspecified whether [place] or transplanted heart [I25.10] Performed By: #### L [id number] ####[facility] ([facility])[address] [place] [address] 36on 04-21-2023 36 Called patient and l eft voicemail. Updated NPO after midnight and not to take any medications in the AM. Surgery scheduled for 0730am. Normal [facility] ANESon 04-21-2023 ANES Normal [facility] Telephoneon 04-21-2023 Telephone [phone] Gui Ortiz 1955 M Date Provider Department [place] 04/21/[address] [facility] Family History Family history unknown: Yes Normal [facility] APTTon 04-09-2023 ACTIVATED PARTIAL THROMBOPLASTIN TIME IN PPP BY COAGULATION ASSAY 34.7 Seconds Normal 25.0-35.0 [facility] Comment on above: Result Comment: Clin ical significance of the APTT is questionable in the presence of heparin. Performed By: #### L [id number] ####[facility] ([employer])[address] [place] [address] BASIC METABOLIC PANELon 03-18 Anion gap [Moles/Vol] 11 mmol/L Normal 7-20 [facility] Comment on above: Performed By: #### L [id number] ####[facility] ([employer])[address] [place] [address] Calcium [Mass/Vol] 9.8 mg/dL Normal 8.6-10.3 [facility] Comment on above: Performed By: #### L [id number] ####[facility] ([facility])[address] [place] [address] Chloride [Moles/Vol] 105 mmol/L Normal 98-107 [facility] Comment on above: Performed By: #### L [id number] ####[facility] ([facility])[address] [place] [address] CO2 [Moles/Vol] 25 mmol/L Normal 21-31 [facility] Comment on above: Performed By: #### L [id number] ####[facility] ([facility])[address] [place] [address] Creatinine [Mass/Vol] 0.91 mg/dL Normal 0.70-1.30 [facility] Comment on above: Performed By: #### L [id number] ####[facility] ([facility])[address] [place] [address] GLOMERULAR FILTRATION RATE ML/MIN/1.73 SQ M.PREDICTED 91.2 mL/min/1.73m*2 Normal >60.0 [facility] Comment on above: Result Comment: The [facility]???s estimated glomerular filtration rate (eGFR) will no [...] of individuals. Performed By: #### L [id number] ####[facility] ([facility])[address] [place] [address] Glucose [Mass/Vol] 105 mg/dL High 70-100 [facility] Comment on above: Performed By: #### L [id number] ####[facility] ([facility])[address] [place] [address] Potassium [Moles/Vol] 3.9 mmol/L Normal 3.5-5.1 [facility] Comment on above: Performed By: #### L [id number] ####[facility] ([facility])[address] [place] [address] Sodium [Moles/Vol] 137 mmol/L Normal 136-145 [facility] Comment on above: Performed By: #### L [id number] ####[facility] ([facility])[address] [place] [address] Urea nitrogen [Mass/Vol] 15 mg/dL Normal 7-25 [facility] Comment on above: Performed By: #### L [id number] ####[facility] ([facility])[address] [place] [address] UREA NITROGEN/CREATININ E (MASS RATIO) IN SER/PLAS 16.5 Normal [facility] Comment on above: Performed By: #### L [id number] ####[facility] ([facility])[address] [place] [address] CBC WITH AUTO DIFFERENTIALon 04-09-2023 Basophils (Bld) [#/Vol] 0.05 10*3/uL Normal 0.00-0.20 [facility] Comment on above: Performed By: #### L [id number] ####[facility] ([facility])[address] [place] [address] Basophils/100 WBC (Bld) 0.8 % Normal 0.0-1.0 [facility] Comment on above: Performed By: #### L [id number] ####[facility] ([facility] [facility] [place] [address] Eosinophils (Bld) [#/Vol] 0.09 10*3/uL Normal 0.00-0.50 [facility] Comment on above: Performed By: #### L [id number] ####[facility] ([facility])[address] [place] [address] Eosinophils/100 WBC (Bld) 1.4 % Normal 0.0-6.0 [facility] Comment on above: Performed By: #### L [id number] ####[facility] ([facility])[address] [place] [address] Erythrocyte distribution width (RBC) [Ratio] 13.1 % Normal 11.5-15.0 [facility] Comment on above: Performed By: #### L [id number] ####[facility] ([facility])[address] [place] [address] ERYTHROCYTE MEAN CORPUSCULAR HEMOGLOBIN CONCENTRATION (G/DL) BY AUTOMATED 33.3 g/dL Normal 32.0-35.0 [facility] Comment on above: Performed By: #### L [id number] ####[facility] ([facility])[address] [place] [address] Hematocrit (Bld) [Volume fraction] 43.0 % Normal 39.0-55.0 [facility] Comment on above: Performed By: #### L [id number] ####[facility] ([facility])[address] [place] [address] Hemoglobin (Bld) [Mass/Vol] 14.3 g/dL Normal 13.0-17.0 [facility] Comment on above: Performed By: #### L [id number] ####[facility] ([facility])[address] [place] [address] Immature granulocytes (Bld) [#/Vol] 0.03 10*3/uL Normal 0.00-0.20 [facility] Comment on above: Performed By: #### L [id number] ####[facility] ([facility])[address] [place] [address] Immature granulocytes/100 WBC (Bld) 0.5 % Normal 0.0-1.0 [facility] Comment on above: Performed By: #### L [id number] ####[facility] ([facility])[address] [place] [address] Lymphocytes (Bld) [#/Vol] 2.46 10*3/uL Normal 1.20-4.00 [facility] Comment on above: Performed By: #### L [id number] ####[facility] ([facility])[address] [place] [address] Lymphocytes/100 WBC (Bld) 38.2 % Normal 20.0-45.0 [facility] Comment on above: Performed By: #### L [id number] ####[facility] ([facility])[address] [place] [address] MCH (RBC) [Entitic mass] 30.4 pg Normal 27.0-33.0 [facility] Comment on above: Performed By: #### L [id number] ####[facility] ([facility])[address] [place] [address] MCV (RBC) [Entitic vol] 91.3 fL Normal 82.0-98.0 [facility] Comment on above: Performed By: #### L [id number] ####[facility] ([facility])[address] [place] [address] Monocytes (Bld) [#/Vol] 0.51 10*3/uL Normal 0.10-1.00 [facility] Comment on above: Performed By: #### L [id number] ####[facility] ([facility])[address] [place] [address] Monocytes/100 WBC (Bld) 7.9 % Normal 5.0-12.0 [facility] Comment on above: Performed By: #### L [id number] ####[facility] ([facility])[address] [place] [address] Neutrophils (Bld) [#/Vol] 3.30 10*3/uL Normal 1.60-7.60 [facility] Comment on above: Performed By: #### L [id number] ####[facility] ([facility])[address] [place] [address] Neutrophils/100 WBC (Bld) 51.2 % Normal 40.0-72.0 [facility] Comment on above: Performed By: #### L [id number] ####[facility] ([facility])[address] [address] NRBC (PER 100 WBCS) BY AUTOMATED COUNT 0.0 % Normal 0 [facility] Comment on above: Performed By: #### L [id number] ####[facility] ([facility])[address] [address] PLATELETS (10*3/UL) IN BLOOD AUTOMATED COUNT 281 10*3/uL Normal 150-400 [facility] Comment on above: Performed By: #### L [id number] ####[facility] ([facility])[address] [address] RBC (Bld) [#/Vol] 4.71 10*6/uL Normal 4.20-5.70 [facility] Comment on above: Performed By: #### L [id number] ####[facility] ([facility])[address] [address] WBC (Bld) [#/Vol] 6.44 10*3/uL Normal 4.00-10.60 [facility] Comment on above: Performed By: #### L [id number] ####[facility] ([facility])[address] [address] ETHANOLon 04-09-2023 ETHANOL (MG/DL) IN SER/PLAS <10 Normal [facility] Comment on above: Result Comment: No E thanol detected Performed By: #### L [id number] ####[facility] ([facility])[address] [address] ETHANOL CALCULATED (%) Normal [facility] Comment on above: Performed By: #### L [id number] ####[facility] ([facility])[address] [address] Follow-Upon 04-09-2023 Follow-Up Normal [facility] HEMOGLOBIN A1Con 04-09-2023 Glucose [Mass/Vol] 128 mg/dL Normal [facility] Comment on above: Performed By: #### L [id number] ####[facility] ([facility])[address] [place] [address] HbA1c (Bld) [Mass fraction] 6.1 % High 4.0-6.0 [facility] Comment on above: Performed By: #### L [id number] ####[facility] ([facility])[address] [place] [address] HPon 04-09-2023 HP Normal [facility] Labon 04-09-2023 Lab [id number] Gui Ortiz 1955 Date Provider Department [place] 04/09/2023 2245-[facility] OPD LAB RESOURCE [facility] OPD CT Medical C Family History Family history unknown: Yes Normal [facility] MRSA/MSSA DNA NASALon 2022 MRSA DNA Negative Normal Negative [facility] Comment on above: Order Comment: Testi ng [...] preclude nasal colonization. Performed By: #### L [id number] ####[facility] ([facility])[address] [place] [address] MSSA DNA Negative Normal Negative [facility] Comment on above: Order Comment: Testi ng [...] preclude nasal colonization. Performed By: #### L [id number] ####[facility] ([facility])[address] [place] [address] Orders Onlyon 04-09-2023 Orders Only [id number] Gui Ortiz 1955 Date Provider Department Center 04/09/[address] [facility] Family History Family history unknown: Yes Normal [facility] PROTIME-INRon 04-09-2023 INR IN PPP BY COAGULATION ASSAY 1.00 Normal 0.90-1.10 [facility] Comment on above: Result Comment: ACCC P [...] CHEST 1995;[id number]. Performed By: #### L [id number] ####[facility] ([facility])[address] [place] [address] PROTHROMBIN TIME (PT) IN PPP BY COAGULATION ASSAY 13.2 Seconds Normal 12.3-14.8 [facility] Comment on above: Performed By: #### L [id number] ####[facility] ([facility])[address] [place] [address] TOXICOLOGY PANEL URINEon AMPHETAMINE+METHAM PHETAMINE SCREEN (PRESENCE) IN URINE Negative Normal Negative [facility] Comment on above: Performed By: #### L [id number] ####[facility] ([facility])[address] [place] [address] BARBITURATES PRESENCE IN URINE BY SCREEN METHOD Negative Normal Negative [facility] Comment on above: Performed By: #### L [id number] ####[facility] ([facility])[address] [place] [address] Benzodiazepines Ql (U) Negative Normal Negative [facility] Comment on above: Performed By: #### L [id number] ####[facility] ([facility])[address] [place] [address] CANNABINOID (PRESENCE) IN URINE BY SCREEN METHOD Negative Normal Negative [facility] Comment on above: Performed By: #### L [id number] ####[facility] ([facility])[address] [place] [address] Cocaine Ql (U) Negative Normal Negative [facility] Comment on above: Performed By: #### L [id number] ####[facility] ([facility])[address] [place] [address] METHADONE (PRESENCE) IN URINE BY SCREEN METHOD Normal [facility] Comment on above: Result Comment: Meth adone being sent out. Results to follow. Performed By: #### L [id number] ####[facility] ([facility])[address] [place] [address] OPIATES (PRESENCE) IN URINE BY SCREEN METHOD Negative Normal Negative [facility] Comment on above: Performed By: #### L [id number] ####[facility] ([facility])[address] [place] [address] PHENCYCLIDINE PRESENCE IN URINE BY SCREEN METHOD Negative Normal Negative [facility] Comment on above: Performed By: #### L [id number] ####[facility] ([facility])[address] [place] [address] Propoxyphene Screen Ql (U) Negative Normal Negative [facility] Comment on above: Performed By: #### L [id number] ####[facility] ([facility])[address] [place] [address] TRICYCLIC ANTIDEPRESSANTS (PRESENCE) IN URINE Negative Normal Negative [facility] Comment on above: Performed By: #### L [id number] ####[facility] ([facility])[address] [place] [address] TYPE AND SCREENon 04-09-2023 AB SCREEN Negative Normal [facility] Comment on above: Performed By: #### L [id number] ####[facility] BLOOD BANK, ABO group Nom (Bld) O Normal [facility] Comment on above: Performed By: #### L [id number] ####[facility], RH TYPE IN BLOOD Positive Normal [facility] Comment on above: Performed By: #### L [id number] ####[facility], URINALYSISon 04-09-2023 BILIRUBIN, TOTAL PRESENCE IN URINE Negative Normal Negative [facility] Comment on above: Performed By: #### L [id number] ####[facility] ([facility])[address] [place] [address] Clarity (U) Clear Normal Clear [facility] Comment on above: Performed By: #### L [id number] ####[facility] ([facility])[address] [place] [address] Color (U) Yellow Normal Yellow [facility] Comment on above: Performed By: #### L [id number] ####[facility] ([facility])[address] [place] [address] Glucose (U) [Mass/Vol] Negative Normal Negative [facility] Comment on above: Performed By: #### L [id number] ####[facility] ([facility])[address] [place] [address] HEMOGLOBIN PRESENCE IN URINE Small Abnormal Negative [facility] Comment on above: Performed By: #### L [id number] ####[facility] ([facility])[address] [place] [address] Ketones Ql (U) Negative Normal Negative [facility] Comment on above: Performed By: #### L [id number] ####[facility] ([facility])[address] [place] [address] LEUKOCYTE ESTERASE PRESENCE IN URINE BY TEST STRIP Negative Normal Negative [facility] Comment on above: Performed By: #### L [id number] ####[facility] ([facility])[address] [place] [address] NITRITE PRESENCE IN URINE Negative Normal Negative [facility] Comment on above: Performed By: #### L [id number] ####[facility] ([facility])[address] [place] [address] pH (U) 6.0 [pH] Normal 5.0-8.0 [facility] Comment on above: Performed By: #### L [id number] ####[facility] ([facility])[address] [place] [address] Protein (U) [Mass/Vol] Negative Normal Negative [facility] Comment on above: Performed By: #### L [id number] ####[facility] ([facility])[address] [place] [address] Specific gravity (U) [Rel density] 1.012 Low 1.015-1.020 [facility] Comment on above: Performed By: #### L [id number] ####[facility] ([facility])[address] [place] [address] URINALYSIS MICROSCOPICon CASTS IN URINE Normal [facility] Comment on above: Performed By: #### L [id number] ####[facility] ([facility])[address] [place] [address] CRYSTALS IN URINE Normal [facility] Comment on above: Performed By: #### L [id number] ####[facility] ([facility])[address] [place] [address] RBC (#/HPF) IN URINE SEDIMENT 3-5 Abnormal None Seen [facility] Comment on above: Performed By: #### L [id number] ####[facility] ([facility])[address] [place] [address] SQUAMOUS EPITHELIAL CELLS (#/HPF) IN URINE SEDIMENT None Seen Normal None Seen, Occasional [facility] Comment on above: Performed By: #### L [id number] ####[facility] ([facility])[address] [place] [address] WBC (LEUKOCYTE) (#/HPF) IN URINE SEDIMENT None Seen Normal None Seen [facility] Comment on above: Performed By: #### L [id number] ####[facility] ([facility])[address] [place] [address] Documentationon 04-01-2023 Documentation Normal [facility] 30on 03-23-2023 30 Normal [facility] 30 Normal [facility] 30 Normal [facility] ANTI-XA (HEPARIN LEVEL)on HEPARIN UNFRACTIONATED (U/ML) IN PPP BY CHROMOGENIC METHOD <0.10 Invalid Interpretation Code 0.3-0.7 [facility] Comment on above: Order Comment: Check anti-Xa level every 6 hours while on heparin infusion, or per protocol. Result Comment: [place] roxaban and Apixaban will interfere with the anti Xa assay used to monitor UFH and LMWH. Performed By: #### L [id number] ####[facility] ([facility])[address] [place] [address] BASIC METABOLIC PANELon 10-0 Anion gap [Moles/Vol] 11 mmol/L Normal 7-20 [facility] Comment on above: Performed By: #### L [id number] ####[facility] ([facility])[address] [place] [address] Calcium [Mass/Vol] 9.1 mg/dL Normal 8.6-10.3 [facility] Comment on above: Performed By: #### L [id number] ####[facility] ([facility])[address] [place] [address] Chloride [Moles/Vol] 107 mmol/L Normal 98-107 [facility] Comment on above: Performed By: #### L [id number] ####[facility] ([facility])[address] [place] [address] CO2 [Moles/Vol] 23 mmol/L Normal 21-31 [facility] Comment on above: Performed By: #### L [id number] ####[facility] ([facility])[address] [place] [address] Creatinine [Mass/Vol] 0.85 mg/dL Normal 0.70-1.30 [facility] Comment on above: Performed By: #### L [id number] ####[facility] ([facility])[address] [place] [address] GLOMERULAR FILTRATION RATE ML/MIN/1.73 SQ M.PREDICTED 94.1 mL/min/1.73m*2 Normal >60.0 [facility] Comment on above: Result Comment: The [facility]???s estimated glomerular filtration rate (eGFR) will no [...] of individuals. Performed By: #### L [id number] ####[facility] ([facility])[address] [place] [address] Glucose [Mass/Vol] 103 mg/dL High 70-100 [facility] Comment on above: Performed By: #### L [id number] ####[facility] ([facility])[address] [place] [address] Potassium [Moles/Vol] 3.8 mmol/L Normal 3.5-5.1 [facility] Comment on above: Performed By: #### L [id number] ####[facility] ([facility])[address] [place] [address] Sodium [Moles/Vol] 137 mmol/L Normal 136-145 [facility] Comment on above: Performed By: #### L [id number] ####[facility] ([facility])[address] [place] [address] Urea nitrogen [Mass/Vol] 12 mg/dL Normal 7-25 [facility] Comment on above: Performed By: #### L [id number] ####[facility] ([facility])[address] [place] [address] UREA NITROGEN/CREATININ E (MASS RATIO) IN SER/PLAS 14.1 Normal [facility] Comment on above: Performed By: #### L [id number] ####[facility] ([facility])[address] [place] [address] CBCon 03-23-2023 Erythrocyte distribution width (RBC) [Ratio] 13.0 % Normal 11.5-15.0 [facility] Comment on above: Performed By: #### L [id number] ####[facility] ([facility])[address] [place] [address] ERYTHROCYTE MEAN CORPUSCULAR HEMOGLOBIN CONCENTRATION (G/DL) BY AUTOMATED 34.5 g/dL Normal 32.0-35.0 [facility] Comment on above: Performed By: #### L [id number] ####[facility] ([facility])[address] [place] [address] Hematocrit (Bld) [Volume fraction] 41.4 % Normal 39.0-55.0 [facility] Comment on above: Performed By: #### L [id number] ####[facility] ([facility])[address] [place] [address] Hemoglobin (Bld) [Mass/Vol] 14.3 g/dL Normal 13.0-17.0 [facility] Comment on above: Performed By: #### L [id number] ####[facility] ([facility])[address] [place] [address] MCH (RBC) [Entitic mass] 30.4 pg Normal 27.0-33.0 [facility] Comment on above: Performed By: #### L [id number] ####[facility] ([facility])[address] [place] [address] MCV (RBC) [Entitic vol] 87.9 fL Normal 82.0-98.0 [facility] Comment on above: Performed By: #### L [id number] ####[facility] ([facility])[address] [place] [address] PLATELETS (10*3/UL) IN BLOOD AUTOMATED COUNT 243 10*3/uL Normal 150-400 [facility] Comment on above: Performed By: #### L [id number] ####[facility] ([facility])[address] [place] [address] RBC (Bld) [#/Vol] 4.71 10*6/uL Normal 4.20-5.70 [facility] Comment on above: Performed By: #### L [id number] ####[facility] ([facility])[address] [place] [address] WBC (Bld) [#/Vol] 6.84 10*3/uL Normal 4.00-10.60 [facility] Comment on above: Performed By: #### L [id number] ####[facility] ([facility])[address] [place] [address] CT HEAD WO IV CONTRASTon CT HEAD WO IV CONTRAST Normal [facility] CTA CHEST W AND/OR WO IV CON TRASTon 03-23-2023 CTA CHEST W AND/OR WO IV CONTRAST Normal [facility] DSon 03-23-2023 DS Normal [facility] 30on 03-22-2023 30 Normal [facility] 30 Normal [facility] ANESon 03-22-2023 ANES Normal [facility] APTTon 03-22-2023 ACTIVATED PARTIAL THROMBOPLASTIN TIME IN PPP BY COAGULATION ASSAY 36.2 Seconds High 25.0-35.0 [facility] Comment on above: Order Comment: Basel ine aPTT before initiating heparin infusion. Result Comment: Clin ical significance of the APTT is questionable in the presence of heparin. Performed By: #### L [id number] ####[facility] ([facility])[address] [place] [address] BASIC METABOLIC PANELon 10-0 Anion gap [Moles/Vol] 9 mmol/L Normal 7-20 [facility] Comment on above: Performed By: #### L [id number] ####[facility] ([facility])[address] [place] [address] Calcium [Mass/Vol] 8.9 mg/dL Normal 8.6-10.3 [facility] Comment on above: Performed By: #### L [id number] ####[facility] ([facility])[address] [place] [address] Chloride [Moles/Vol] 111 mmol/L High 98-107 [facility] Comment on above: Performed By: #### L [id number] ####[facility] ([facility])[address] [place] [address] CO2 [Moles/Vol] 22 mmol/L Normal 21-31 [facility] Comment on above: Performed By: #### L [id number] ####[facility] ([facility])[address] [place] [address] Creatinine [Mass/Vol] 0.79 mg/dL Normal 0.70-1.30 [facility] Comment on above: Performed By: #### L [id number] ####[facility] ([facility])[address] [place] [address] GLOMERULAR FILTRATION RATE ML/MIN/1.73 SQ M.PREDICTED 96.2 mL/min/1.73m*2 Normal >60.0 [facility] Comment on above: Result Comment: The [facility]???s estimated glomerular filtration rate (eGFR) will no [...] of individuals. Performed By: #### L [id number] ####[facility] ([facility])[address] [place] [address] Glucose [Mass/Vol] 112 mg/dL High 70-100 [facility] Comment on above: Performed By: #### L [id number] ####[facility] ([facility])[address] [place] [address] Potassium [Moles/Vol] 3.9 mmol/L Normal 3.5-5.1 [facility] Comment on above: Performed By: #### L [id number] ####[facility] ([facility])[address] [place] [address] Sodium [Moles/Vol] 138 mmol/L Normal 136-145 [facility] Comment on above: Performed By: #### L [id number] ####[facility] ([facility])[address] [place] [address] Urea nitrogen [Mass/Vol] 12 mg/dL Normal 7-25 [facility] Comment on above: Performed By: #### L [id number] ####[facility] ([facility])[address] [place] [address] UREA NITROGEN/CREATININ E (MASS RATIO) IN SER/PLAS 15.2 Normal [facility] Comment on above: Performed By: #### L [id number] ####[facility] ([facility])[address] [place] [address] CBCon 03-22-2023 Erythrocyte distribution width (RBC) [Ratio] 13.2 % Normal 11.5-15.0 [facility] Comment on above: Performed By: #### L [id number] ####[facility] ([facility])[address] [place] [address] ERYTHROCYTE MEAN CORPUSCULAR HEMOGLOBIN CONCENTRATION (G/DL) BY AUTOMATED 33.7 g/dL Normal 32.0-35.0 [facility] Comment on above: Performed By: #### L [id number] ####[facility] ([facility])[address] [place] [address] Hematocrit (Bld) [Volume fraction] 40.3 % Normal 39.0-55.0 [facility] Comment on above: Performed By: #### L [id number] ####[facility] ([facility])[address] [place] [address] Hemoglobin (Bld) [Mass/Vol] 13.6 g/dL Normal 13.0-17.0 [facility] Comment on above: Performed By: #### L [id number] ####[facility] ([facility])[address] [address] MCH (RBC) [Entitic mass] 30.5 pg Normal 27.0-33.0 [facility] Comment on above: Performed By: #### L [id number] ####[facility] ([facility])[address] [place] [address] MCV (RBC) [Entitic vol] 90.4 fL Normal 82.0-98.0 [facility] Comment on above: Performed By: #### L [id number] ####[facility] ([facility])[address] [place] [address] PLATELETS (10*3/UL) IN BLOOD AUTOMATED COUNT 241 10*3/uL Normal 150-400 [facility] Comment on above: Performed By: #### L [id number] ####[facility] ([facility])[address] [place] [address] RBC (Bld) [#/Vol] 4.46 10*6/uL Normal 4.20-5.70 [facility] Comment on above: Performed By: #### L [id number] ####[facility] ([facility])[address] [place] [address] WBC (Bld) [#/Vol] 6.03 10*3/uL Normal 4.00-10.60 [facility] Comment on above: Performed By: #### L [id number] ####[facility] ([facility])[address] [place] [address] CONSULTon 03-22-2023 CONSULT Normal [facility] CONSULT Normal [facility] CT CHEST WO IV CONTRASTon CT CHEST WO IV CONTRAST Normal [facility] HEMOGLOBIN A1Con 03-22-2023 Glucose [Mass/Vol] 126 mg/dL Normal [facility] Comment on above: Performed By: #### L [id number] ####[facility] ([facility])[address] [place] [address] HbA1c (Bld) [Mass fraction] 6.0 % Normal 4.0-6.0 [facility] Comment on above: Performed By: #### L [id number] ####[facility] ([facility])[address] [place] [address] HPon 03-22-2023 HP H&P reviewed. The laurie putnam was examined and there are no changes to the H&P. Will proceed with coronary angiogram for chest pain and elevated high sensitivity troponin. Normal [facility] LIPID PANELon 03-22-2023 CHOL/HDL 4.9 mg/dL Normal [facility] Comment on above: Performed By: #### L [id number] ####[facility] ([facility])[address] [place] [address] Cholesterol [Mass/Vol] 138 mg/dL Normal 120-200 [facility] Comment on above: Performed By: #### L [id number] ####[facility] ([facility])[address] [place] [address] Magnesium [Mass/Vol] 107 mg/dL Normal 40-149 [facility] Comment on above: Result Comment: TRIG LYCERIDE REFERENCE RANGE:20 YEARS AND OLDER CARDIOVASCULAR RISKLESS THAN 150 mg/dL LOW [id number] TO 199 mg/dL BORDERLINE [id number] mg/dL AND GREATER HIGH RISK Performed By: #### L [id number] ####[facility] ([facility])[address] [place] [address] Magnesium [Mass/Vol] 89 mg/dL Normal 0-160 [facility] Comment on above: Performed By: #### L [id number] ####[facility] ([facility])[address] [place] [address] Magnesium [Mass/Vol] 28 mg/dL Normal 23-92 [facility] Comment on above: Performed By: #### L [id number] ####[facility] ([facility])[address] [place] [address] NON HDL CHOL. (LDL+VLDL) 110 Normal [facility] Comment on above: Performed By: #### L [id number] ####[facility] ([facility])[address] [place] [address] TOTAL VLDL-C 21 mg/dL Normal 0-40 [facility] Comment on above: Performed By: #### L [id number] ####[facility] ([facility])[address] [place] [address] MRSA/MSSA DNA NASALon 2022 MRSA DNA Negative Normal Negative [facility] Comment on above: Order Comment: Testi ng [...] preclude nasal colonization. Performed By: #### L [id number] ####[facility] ([facility])[address] [place] [address] MSSA DNA Negative Normal Negative [facility] Comment on above: Order Comment: Testi ng [...] preclude nasal colonization. Performed By: #### L [id number] ####[facility] ([facility])[address] [place] [address] TROPONIN Ion 03-22-2023 Troponin I.cardiac [Mass/Vol] 0.03 ng/mL Normal 0.00-0.04 [facility] Comment on above: Performed By: #### L [id number] ####[facility] ([facility])[address] [place] [address] Troponin I.cardiac [Mass/Vol] 0.04 ng/mL Normal 0.00-0.04 [facility] Comment on above: Performed By: #### L [id number] ####[facility] ([facility])[address] [place] [address] TSH3 REFLEX TO FT4on 023 THYROTROPIN (MIU/L) IN SER/PLAS BY DETECTION LIMIT <= 0.05 MIU/L 2.07 mIU/L Normal 0.34-5.60 [facility] Comment on above: Performed By: #### L [id number] ####[facility] ([facility])[address] [place] [address] URINALYSISon 03-22-2023 BILIRUBIN, TOTAL PRESENCE IN URINE Negative Normal Negative [facility] Comment on above: Performed By: #### L [id number] ####[facility] ([facility])[address] [place] [address] Clarity (U) Clear Normal Clear [facility] Comment on above: Performed By: #### L [id number] ####[facility] ([facility])[address] [place] [address] Color (U) Yellow Normal Yellow [facility] Comment on above: Performed By: #### L [id number] ####[facility] ([facility])[address] [place] [address] Glucose (U) [Mass/Vol] Negative Normal Negative [facility] Comment on above: Performed By: #### L [id number] ####[facility] ([facility])[address] [place] [address] HEMOGLOBIN PRESENCE IN URINE Small Abnormal Negative [facility] Comment on above: Performed By: #### L [id number] ####[facility] ([facility])[address] [place] [address] Ketones Ql (U) Negative Normal Negative [facility] Comment on above: Performed By: #### L [id number] ####[facility] ([facility])[address] [place] [address] LEUKOCYTE ESTERASE PRESENCE IN URINE BY TEST STRIP Negative Normal Negative [facility] Comment on above: Performed By: #### L [id number] ####[facility] ([facility])[address] [place] [address] NITRITE PRESENCE IN URINE Negative Normal Negative [facility] Comment on above: Performed By: #### L [id number] ####[facility] ([facility])[address] [place] [address] pH (U) 6.0 [pH] Normal 5.0-8.0 [facility] Comment on above: Performed By: #### L [id number] ####[facility] ([facility])[address] [place] [address] Protein (U) [Mass/Vol] Negative Normal Negative [facility] Comment on above: Performed By: #### L [id number] ####[facility] ([facility])[address] [place] [address] Specific gravity (U) [Rel density] 1.049 High 1.015-1.020 [facility] Comment on above: Performed By: #### L [id number] ####[facility] ([facility])[address] [place] [address] URINALYSIS MICROSCOPICon CASTS IN URINE Normal [facility] Comment on above: Performed By: #### L [id number] ####[facility] ([facility])[address] [place] [address] CRYSTALS IN URINE Normal [facility] Comment on above: Performed By: #### L [id number] ####[facility] ([facility])[address] [place] [address] RBC (#/HPF) IN URINE SEDIMENT 6-10 Abnormal None Seen [facility] Comment on above: Performed By: #### L [id number] ####[facility] ([facility])[address] [place] [address] SQUAMOUS EPITHELIAL CELLS (#/HPF) IN URINE SEDIMENT Few Abnormal None Seen, Occasional [facility] Comment on above: Performed By: #### L [id number] ####[facility] ([facility])[address] [place] [address] WBC (LEUKOCYTE) (#/HPF) IN URINE SEDIMENT None Seen Normal None Seen [facility] Comment on above: Performed By: #### L [id number] ####[facility] ([facility])[address] [place] [address] 30on 03-21-2023 30 Normal [facility] D-DIMER, QUANTITATIVEon FIBRIN D-DIMER (UG/L FEU) IN PLATELET POOR PLASMA 0.36 mcg/mL FEU Normal 0.27-0.49 [facility] Comment on above: Order Comment: D-Dim er values of less than 0.50 ug/ml (FEU) are considered to be a negative predictor of thrombosis. However, the D-Dimer result should be used in conjunction with pretest probability and should not be used alone to diagnose a thrombotic event. Performed By: #### L [id number] ####[facility] (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 Tests Performed Urnls Dip Stick Auto w/o Microscopy POC [id number] Your Care Team Attending Physician - DAKSHA ROMERO, ELIZABETH Benedict Primary Care Physician - Tyson Jaquez MD [...] ELIZABETH LINDSAY PA-C Where: [facility] Urology Office/Clinic Noteon 01-29-2023 Urology [...] ELIZABETH LINDSAY PA-C, URL In 1 year [address] [place] [address] Additional Instructions: w/PSA Patient Education Documentation recorded [...] Protein Urine Dipstick: Negative (01/29/23 14:37:00) Specific Potter Urine Dipstick: 1.025 (01/29/23 14:37:00) Urine Appearance Urine Dipstick: Clear (01/29/23 14:37:00) Urine Color Urine Dipstick: Yellow (01/29/23 14:37:00) pH Urine Dips (more content not included)... Normal [facility] Comment on above: Result Comment: Elec tronically Signed By: DAKSHA ELIZABETH ROMERO.br\Date and Time Signed: 01/29/23 16:19 EDT\.br\Electronically Co-Signed By: Nani Rojas.olive\Date and Time Co-Signed: 01/29/23 14:53 EDT PET [...] by: GARCIA GALLEGOS Date: 2022-08-04 17:12 Normal [facility] CT LUNG CANCER SCREENINGon 0 07-26-2022 [...] by: DAVID EL Date: 2022-07-26 07:42 Normal [facility] INSULINon 07-26-2022 Insulin 4.0 uIU/mL Normal 2.6-24.9 [facility] Comment on above: Performed By: #### I NSULIN #### [facility] [address] [place] [address] Dr. Rehana Martinez CBC AUTO DIFFon 07-25-2022 BASO # 0.0 103/ul Normal 0.0-0.1 [facility] Comment on above: Performed By: #### C BC #### [facility] [address] [place] [address] [address] Rehana Martinez Basophils/100 WBC (Bld) 0.2 % Normal 0.2-2.0 [facility] Comment on above: Performed By: #### C BC #### [facility] [address] [place] [address] Dr. Rehana Martinez EO # 0.1 103/ul Normal 0.0-0.7 [facility] Comment on above: Performed By: #### C BC #### [facility] [address] [place] [address] Dr. Rehana Martinez Eosinophils/100 WBC (Bld) 0.5 % Critically low 0.9-7.0 [facility] Comment on above: Performed By: #### C BC #### [facility] [address] [place] [address] Dr. Rehana Martinez Erythrocyte distribution width (RBC) [Ratio] 13.6 % Normal 11.0-15.0 [facility] Comment on above: Performed By: #### C BC #### [facility] [address] [place] [address] Dr. Rehana Martinez Hematocrit (Bld) [Volume fraction] 45.6 % Normal 42.0-54.0 [facility] Comment on above: Performed By: #### C BC #### [facility] [address] [place] [address] Dr. Rehana Martinez Hemoglobin (Bld) [Mass/Vol] 15.1 g/dL Normal 14.0-18.0 [facility] Comment on above: Performed By: #### C BC #### [facility] [address] [place] [address] Dr. Rehana Martinez IG # 0.04 10e3/ul Critically high 0.00-0.03 [facility] Comment on above: Performed By: #### C BC #### [facility] [address] [place] [address] Dr. Rehana Martinez IG % 0.4 % Normal 0.0-0.5 [facility] Comment on above: Performed By: #### C BC #### [facility] [address] [place] [address] Dr. Rehana Martinez LYMPH # 1.7 103/ul Normal 1.2-3.8 [facility] Comment on above: Performed By: #### C BC #### [facility] [address] [place] [address] Dr. Rehana Martinez Lymphocytes/100 WBC (Bld) 17.9 % Critically low 20.5-60.0 [facility] Comment on above: Performed By: #### C BC #### [facility] [address] [place] [address] Dr. Rehana Martinez MANUAL DIFF REQ NO Normal [facility] Comment on above: Performed By: #### C BC #### [facility] [address] [place] [address] Dr. Rehana Martinez MCH (RBC) [Entitic mass] 30.8 pg Normal 25.9-34.0 [facility] Comment on above: Performed By: #### C BC #### [facility] [address] [place] [address] Dr. Rehana Martinez MCHC (RBC) [Mass/Vol] 33.1 g/dL Normal 29.9-35.2 [facility] Comment on above: Performed By: #### C BC #### [facility] [address] [place] [address] Dr. Rehana Martinez MCV (RBC) [Entitic vol] 92.9 fL Normal 80.0-94.0 [facility] Comment on above: Performed By: #### C BC #### [facility] [address] [place] [address] Dr. Rehana Martinez MONO # 1.1 103/ul Critically high 0.3-0.[address] [facility] Comment on above: Performed By: #### C BC #### [facility] [address] [place] [address] Dr. Rehana Martinez Monocytes/100 WBC (Bld) 11.2 % Normal 1.7-12.0 [facility] Comment on above: Performed By: #### C BC #### [facility] [address] [place] [address] Dr. Rehana Martinez NEUT # 6.7 103/ul Critically high 1.4-6.[address] [facility] Comment on above: Performed By: #### C BC #### [facility] [address] [place] [address] [address] Rehana Martinez Neutrophils/100 WBC (Bld) 69.8 % Normal 43.0-75.0 [facility] Comment on above: Performed By: #### C BC #### [facility] [address] [place] [address] [address] Rehana Martinez Platelet mean volume (Bld) [Entitic vol] 8.7 fL Critically low 9.5-13.5 [facility] Comment on above: Performed By: #### C BC #### [facility] [address] [place] [address] [address] Rehana Martinez PLT 226 103/ul Normal 150-450 [facility] Comment on above: Performed By: #### C BC #### [facility] [address] [place] [address] [address] Rehana Martinez RBC 4.91 106/ul Normal 4.70-6.10 [facility] Comment on above: Performed By: #### C BC #### [facility] [address] [place] [address] [address] Rehana Martinez WBC 9.6 103/ul Normal 4.0-11.0 [facility] Comment on above: Performed By: #### C BC #### [facility] [address] [place] [address] [address] Rehana Martinez FREE THYROXINE INDEX T7on FTI 3.37 Normal 1.30-4.50 [facility] Comment on above: Performed By: #### L IPID, CMP, TSH, URIC, T7 ####[facility] [address] [address]Dr. Rehana Martinez T3U 37.0 % Normal 33.0-40.0 [facility] Comment on above: Performed By: #### L IPID, CMP, TSH, URIC, T7 ####[facility] [address] [place] [address]Dr. Rehana Martinez T4 [Mass/Vol] 9.10 ug/dL Normal 4.50-12.10 [facility] Comment on above: Performed By: #### L IPID, CMP, TSH, URIC, T7 ####[facility] [address] [place], [place] [address]FdDr. Rehana Martinez GLYCOHEMOGLOBIN A1Con 2022 ADA RECOMMENDATION SEE BELOW Normal [facility] Comment on above: Result Comment: ADA RECOMMENDED LIMIT 4.0 - 6.0 ADA THERAPEUTIC TARGET < 7.0 ACTION SUGGESTED > 7.0 Performed By: #### A 1C #### [facility] [address] [place] [address] [address] Rehana Martinez Glucose [Mass/Vol] 128 mg/dL Normal [facility] Comment on above: Performed By: #### A 1C #### [facility] [address] [place] [address] [address] Rehana Martinez HbA1c (Bld) [Mass fraction] 6.1 % Normal 4.5-6.2 [facility] Comment on above: Performed By: #### A 1C #### [facility] [address] [place] [address] [address] Rehana Martinez LIPID PROFILEon 07-25-2022 CHOL-HDL RATIO NORM SEE BELOW Normal [facility] Comment on above: Result Comment: 3.3 - 4.4 LOW RISK 4.4 - 7.1 AVERAGE RISK 7.1 - 11.0 MODERATE RISK >11.0 HIGH RISK Performed By: #### L IPID, CMP, TSH, URIC, T7 ####[facility] [address] [place], [place] [address]OfDr. Rehana Martinez Cholesterol [Mass/Vol] 137 mg/dL Normal <=200 [facility] Comment on above: Performed By: #### L IPID, CMP, TSH, URIC, T7 ####[facility] [address] [place], [place] [address]SlDr. Rehana Martinez Cholesterol in HDL [Mass/Vol] 44 mg/dL Normal 40-60 [facility] Comment on above: Performed By: #### L IPID, CMP, TSH, URIC, T7 ####[facility] [address] [place] [address]Dr. Rehana Martinez Cholesterol in LDL [Mass/Vol] 75.6 mg/dL Normal [facility] Comment on above: Performed By: #### L IPID, CMP, TSH, URIC, T7 ####[facility] [address] [place], [place] [address]Cn. Rehana Martinez Cholesterol.total/ Cholesterol in HDL [Mass ratio] 3.1 {ratio} Normal [facility] Comment on above: Performed By: #### L IPID, CMP, TSH, URIC, T7 ####[facility] [address] [place] [address]Dr. Rehana Martinez HDL NORMAL > or = 60 mg/dl - LO W CARDIOVASCULAR RISK <40 mg/dl - HIGH CARDIOVASCULAR RISK Normal [facility] Comment on above: Performed By: #### L IPID, CMP, TSH, URIC, T7 ####[facility] [address] [place] [address]Dr. Rehana Martinez LDL CALC NORMAL SEE BELOW Normal [facility] Comment on above: Result Comment: <100 mg/dl OPTIMAL 100 - 129 mg/dl NEAR OR ABOVE OPTIMAL 130 - 159 mg/dl BORDERLINE HIGH 160 - 189 mg/dl HIGH >190 mg/dl VERY HIGH Performed By: #### L IPID, CMP, TSH, URIC, T7 ####[facility] [address] [place] [address]Dr. Rehana Martinez Triglyceride [Mass/Vol] 87 mg/dL Normal <=150 [facility] Comment on above: Performed By: #### L IPID, CMP, TSH, URIC, T7 ####[facility] [address] [place], [place] [address]Kk. Rehana Martinez VLDL CALC 17.4 mg/dL Normal [facility] Comment on above: Performed By: #### L IPID, CMP, TSH, URIC, T7 ####[facility] [address] [place] [address]Dr. Rehana Martinez PROF 14(COMP METB)on 023 Albumin [Mass/Vol] 3.3 g/dL Critically low 3.4-5.0 [facility] Comment on above: Performed By: #### L IPID, CMP, TSH, URIC, T7 ####[facility] [address] [place] [address]Dr. Rehana Martinez Albumin/Globulin [Mass ratio] 0.9 {ratio} Normal [facility] Comment on above: Performed By: #### L IPID, CMP, TSH, URIC, T7 ####[facility] [address] [place] [address]Dr. Rehana Martienz ALP [Catalytic activity/Vol] 105 U/L Normal 46-116 [facility] Comment on above: Performed By: #### L IPID, CMP, TSH, URIC, T7 ####[facility] [address] [place], [place] [address]Dr. Rehana Martinez ALT [Catalytic activity/Vol] 16 U/L Normal 16-63 [facility] Comment on above: Performed By: #### L IPID, CMP, TSH, URIC, T7 ####[facility] [address] [place], [place] [address]Dr. Rehana Martinez Anion gap [Moles/Vol] 11.8 mmol/L Normal [facility] Comment on above: Performed By: #### L IPID, CMP, TSH, URIC, T7 ####[facility] [address] [place], [place] [address]Dr. Rehana Martinez AST [Catalytic activity/Vol] 16 U/L Normal 15-37 [facility] Comment on above: Performed By: #### L IPID, CMP, TSH, URIC, T7 ####[facility] [address] [place] [address]Dr. Rehana Martinez Bilirubin [Mass/Vol] 0.6 mg/dL Normal 0.2-1.0 [facility] Comment on above: Performed By: #### L IPID, CMP, TSH, URIC, T7 ####[facility] [address] [place] [address]Dr. Floriirene Martinez Calcium [Mass/Vol] 9.1 mg/dL Normal 8.5-10.1 [facility] Comment on above: Performed By: #### L IPID, CMP, TSH, URIC, T7 ####[facility] [address] [place] [address]Dr. Rehana Martinez Chloride [Moles/Vol] 103 mmol/L Normal 98-107 [facility] Comment on above: Performed By: #### L IPID, CMP, TSH, URIC, T7 ####[facility] [address] [place] [address]Dr. Rehana Martinez CO2 [Moles/Vol] 26.0 mmol/L Normal 21.0-32.0 [facility] Comment on above: Performed By: #### L IPID, CMP, TSH, URIC, T7 ####[facility] [address] [place], [place] [address]Dr. Rehana Martinez Creatinine [Mass/Vol] 0.94 mg/dL Normal 0.70-1.30 [facility] Comment on above: Performed By: #### L IPID, CMP, TSH, URIC, T7 ####[facility] [address] [place], [place] [address]Dr. Rehana Martinez EGFR-AF LEBANESE >60 Normal >=60 [facility] Comment on above: Performed By: #### L IPID, CMP, TSH, URIC, T7 ####[facility] [address] [place], [place] [address]Dr. Rehana Martinez EGFR-NON AF LEBANESE >60 Normal >=60 [facility] Comment on above: Performed By: #### L IPID, CMP, TSH, URIC, T7 ####[facility] [address] [place], [place] [address]Dr. Rehana Martinez Globulin (S) [Mass/Vol] 3.8 g/dL Normal [facility] Comment on above: Performed By: #### L IPID, CMP, TSH, URIC, T7 ####[facility] [address] [place], [place] [address]Dr. Rehana Martinez Glucose [Mass/Vol] 109 mg/dL Critically high 74-106 [facility] Comment on above: Performed By: #### L IPID, CMP, TSH, URIC, T7 ####[facility] [address] [place] [address]Dr. Rehana Martinez Potassium [Moles/Vol] 3.8 mmol/L Normal 3.5-5.1 [facility] Comment on above: Performed By: #### L IPID, CMP, TSH, URIC, T7 ####[facility] [address] [place] [address]Dr. Rehana Martinez Protein [Mass/Vol] 7.1 g/dL Normal 6.4-8.2 [facility] Comment on above: Performed By: #### L IPID, CMP, TSH, URIC, T7 ####[facility] [address] [place], [place] [address]Dr. Rehana Martinez Sodium [Moles/Vol] 137 mmol/L Normal 136-145 [facility] Comment on above: Performed By: #### L IPID, CMP, TSH, URIC, T7 ####[facility] [address] [place], [place] [address]Dr. Rehana Martinez Urea nitrogen [Mass/Vol] 17.0 mg/dL Normal 7.0-18.0 [facility] Comment on above: Performed By: #### L IPID, CMP, TSH, URIC, T7 ####[facility] [address] [place], [place] [address]Dr. Rehana Martinez Urea nitrogen/Creatinin e [Mass ratio] 18.1 mg/mg Normal [facility] Comment on above: Performed By: #### L IPID, CMP, TSH, URIC, T7 ####[facility] [address] [place], [place] [address]Dr. Rehana Martinez TSHon 07-25-2022 TSH 1.619 uIU/mL Normal 0.358-3.740 [facility] Comment on above: Performed By: #### L IPID, CMP, TSH, URIC, T7 ####[facility] [address] [place], [place] [address]Dr. Rehana Martinez URIC ACID SERUMon 07-25-2022 Urate [Mass/Vol] 5.7 mg/dL Normal 3.5-7.2 [facility] Comment on above: Performed By: #### L IPID, CMP, TSH, URIC, T7 #### [facility] [address] [place], [place] [address] Dr. Rehana Martinez [facility] ([facility])on 04-06-2022 UVFISH & UC Diagnosis Info Invalid Interpretation Code [facility] Comment on above: Result Comment: A:Ur [...] on: 03/29/2022 10:51:08 Performed By: #### 1 [id number] ####[facility] [address] [place] [address] Patient Educationon 03-27-20 Patient Education Urology Benign [...] Follow these instructions at home: ? Take gsoi-utq-bdwawbc and prescription medicines only as told by [...] You d (more content not included)... Normal [facility] Urology Office/Clinic Noteon 03-27-2022 Urology Office/Clinic [...] With When Contact Information Giancarlo Campbell MD, Moinca Menendez, [facility] [address] [place] [address]- Additional Instructions: 6 mos PSA free & [...] Social Hist (more content not included)... Normal [facility] Comment on above: Result Comment: Elec tronically Signed By: Casper RAUSCH MD\.br\Date and Time Signed: 03/27/22 10:34 EDT\.br\Electronically Co-Signed By: Inga Woodruff\.br\Date and Time Co-Signed: 03/27/22 10:32 EDT Coding Summary.on 03-22-2022 Coding Summary. CD:[id number] Gh0bWw+ PGhlYWQ+NI9RVDRuX49ddJWmkZ2 VF5dTAO3KGPJVPQUJST7CPQ2puT T2RDubM1BzklEb MhiecWTgRH67SWi8ARH9cQzvIOs isZ6alZFdV5w2QgCxOO37dS49IH efATUzPtS4ZhIwcjlgeXCk N9wyFoFavKMoBeh+PHRhYmxlIHd yKHNsODzaSGDtUeOyiXyiIN3oEi 9yZGVyLWNvbGxhcHNlOiBj i5nsLNBcCWfzAY2vvGxxL4WqmBL 7APEdq8z9Dt16gDH+FWLlJKQ3xK jlFToni289NnDqf4vcISI7 dWDwXZkzZDE3E83sj1B1UQOyLEY zVDB4qQE7oT0rsWycesavZ1FaxS VaCyS7BEP2aLPnkT8msWvq eprcxN5yTfd+O70MQB1QPDVPVJ1 MVjs6M9AnBppdcSI+FA81DJCuCR 96cXKdfKXuo7wsrKo3YiIw LZRjODK2qNtqANklt4ZxFPHjY18 xzQPtp2Z5DEKzbCkqeSAaWaIwfJ I1dG8rXOkatphip0lffwnw Vwkbq6gxfo26cD26A35xUGdeESD yOPA8ODMfELMttZikcr9xzR1eFh 8+BDuoj3mxm8zxiSl5UuMc DLLdluMzgTnaJDN5o0PyJe36Z4B yyYpti1WiHvt9uv46kKEqz6J3nE J1TYhrRATrsN0lRYzqTlR5 PJEoOoBskR76eDAqPXexFv6srBi jcUysWZ7wXIWomxcgSOCbiR6eVS YegLBzqDsuTU2gIPZctfad i651RrUdZBW5FGAunZCaF8BtxU5 tAjHzOUKgZRPgV3IcxHXfNRfuE5 41JHtvIfI9ISRpqtAfV8Kb BATllHdiTxV0j8D7Sb5Qd1Wxwbm nABO9DAvvQPEyYoI3TxUoYbH6U3 JoGkp4SKQcpLeaKQ1eW2Jj PGBjvmcvoggekBW2IWAcKZCfdE0 9pRQoHJsrUg7ze1X3j134OOZwVD HycF02Ct2rdDarVURteTYG sR1tsmazs8ulszhvWvAeIKUeSHl 8XZk3RGHycGxwPlLzNQO2WiX0BS A2lTMwjM0yxCqepexfwI2f Oyc+I52tmT6zFYY9CNR8blbeMDR ohvFvXC44KT54Q2QmXorkpPNuoR U+QJTqorPvqRjfAM5hNeXz e8irv8SkTHtaE9KwEQHjMRdeZrh 8XGKxHWK0lRB5eN8zFRWpWJrae9 B9gQF4F7AhjdFkla2td8oh WWXaMGocI95erUWmo4X3WKIpkBN 0TVOqhXniAxGnfX50Tcl+PGNvbG nud4IbIiswk4ecn2pgvFe5 PvZcYJZvotUpyCpgQII7v0TxLp2 2A27fEOktBTYuZHQrTIUmRZGcgG dgtv1xmY9bGh4+PGNvbCB3 iFP6wT5wJSSwEvH3FVuqZ269FlI snFXkKltej9iev9zxfQg4IuLkAC UikfLktMtlZKE6n8GoHb69 A60jFIksJZVpFZXnPYGdQUEuoIg tcp5pdK4iOo1+VQ3ym4txxa15yN 48dHI+JCHwOHU1fKqoGOza MKRoxP8lIYtqUkJ4FPIjBaNgyY5 0lNLyQAxcEv3xrOvsrYdwAX7gEA Vdqhwjp540VcInj0tlQUCd sBLaXRyyVHK4F30mr4P3JLXrWOV wNZX6yTF5jE0lsMovqyqpxBHxlE vmcjYstDavOPbrZZgfK799 IHRvcDsnPlBhdGllbnQgTmFtZTo 6H0VeFcf0OGKvfJkiHL9xnKHfKO wyLt5wxUtmoPkpFR2tIDJv lxwmt345KiIci8zpZYBfyXRyLUd mPHI0V41pr6H6EPHlTCSpLIY8oJ T8lW8shScyaiiobQGemQna yaEwpDbiYNdeENgtY621CUVbzGn jOvMpkhMuQLZssVX6UF57UJ17mD Jpp3G1eYB0R0RtYXWvvaej viswvYL6KLWkSJVajV40Lc3dtIw bCw7oZXHuUKA2MOQjyVRvU3KxnF 3zLxHiTBJpLHRiK4OgbRVx VRrtJ199YZnqXtC7CMIwsmZeP9Q oDVVnqJiqZzI9v9S4Ao7DQ1X7SD 15JM60gVVvy3L4mIV2O9Lu VURxenimuftopMD4FDWxXKSbyY1 0Mi2tiDupIt5fIUUtWGL1JSVkrW DaA5CjaK8zKnXgIBQnJPFr K7AumYLbWKksE730IQgqSvU0LCI ioqEpL0KfOCEmqXsnJuW2g5F4Cm 8JMFr4NO83EN52zSLve1C2 qES6V5DlLVZgjntcdjlxoZH9KET bVSXrsC22Uy3tnUxhWx8oFJZlMR S0KYWkfXWfW6ZwkJ8jDaGb DZBeZBWiG5KkfEOmZFhrV661YWi oAmI7MVIdonXyC6PaBPHqlGizSe A2u1F2Od1UTVZgCH38YDT3 uSQ6YY60GN35W4PsEqoleGJoqTG +PHRhYmxlIHdpZHRoPScxMDAlJy NjlDidHN4lNr2pKKDmAEAa aTsjiWPnElOkz9ahZICgNKsyCR0 lfTknT0RgsAL9OIBni0p5Hk51O7 8qV9GupWA+LVRxhGV5xLM9 nC2xIcMmWiL5RZxyP668WkKpvWE kQkhon8hlz8vntIa1VqY3FMPtqq FozAodEPD7a2ArYc96Y49r IHdpZHRoPSIxNSUiIHZhbGlnbj0 fzA9gLe2+JDSxqIV2pRG9dA2pWr ZgJbT8XTjgE732MxKgfLLu Qqkqh8gbn0hfiGl4TwMnNHOqiqY baWyoZOL7g8OqHl25E6UriVnag4 QcUrf4qy47lMFaa9P2cZD5 P0WqLVSthtjtyXWxoFrjGH9cLXL ukooqTOFgiD2iUOTmE6w4IgWfRx O5QLktN3FhucC2OMHbeTUj ZUtkQZD3S85xn9I1OJZoRMYvSYM 9oNI6bD1loKmoyproaFMzzCwmzn CgiNpaKYnzSAdaG463QEVl uHarJPBhjG0pQKEuaMVkrUlyVT1 vNLPusudbEaCTQcJkG5YdNLuWZH 4gQTwvdGQ+KLMoNQE8gFan IPvoCAZrdZ0jXGWaV4a4WnMaLfG 3FVatK2SiPLJfielyPw68uT6iIx PsTbS5DCkhH7EnefL9GLSs hLJuIVfpOOV3P06wm9A3IKAlIAV yLWZ0gIH2sQ3jfVxujmnxuYTcpR yoalElhIliJZrqLEvzX821 KNFrnZzkHnS6FcBmMaI9TEA6N3Q sBrb5XASroCmsPC1cnZUyAAwtAa 3mdQbgtUpvBB2rKPKlvoic AZNrhH4vFRLrpCUywPwjFF7kDPZ cjxbce736QsZkTRD5RFWxzDHfP9 RwpX6rOoSkJEPjXPDnZ7Tr iOQoFCzuJ694QOhfMlU9JBUbzeA jT1GaCOVouTvgCjH9e0J2Jv95DW BZZWFyczwvdGQ+PHRkIHN0 yGucBEouZCLcmE8pTHXiS6p7GpC tJbN0VMugP6ThKQYieyadEs55wW 0eEiXtNhW3RJaqH8YtunJ2 TJYhhUZpXYanFBO5N63lb4R6KPK uGWEpDAX2uLK1bB5raPlosyhxvO VmdDsgdmVydGljYWwtYWxp R325MTYrgZatFr6koKZ2A7IbRnv 6GCNplShsJD7iyEAzSNirVn4ccU egzXaoJU5cJGFfavqaNBBp gC4uHSRpvPUtuKevXT4gEWRtzcm vv054UxVeXIR2QGEocHBjT9TxuB 5yYkQnMHNiIZTaZ3AoiPHx KNbuZ605DMtoZvI7IIGboiGjG2K jNPQspHdwXvC1q9P3Wa2LvHKwGM VzOO53NN36CV98N1SuUssb dGFibGU+PHRhYmxlIHdpZHRoPSc qKJQeEuSazCkxMZ1nAo6hMXSxRJ HphPktsYXjAeCtn4lfHOQa DEplXL9clXdgP8KvmRR7AGViw5r 3Vv08E39yI4SfzMO+MQKxtVJ9oP G3oT2eUfOtRjR4GQkcS409 UgInyHKgFblfp6deq4ggyQz7VkT lMHMttlPwsVgyLPQ2w2AePl00E7 9sIHdpZHRoPSIyMCUiIHZh qAmxqb9kiV1uRq5+SAFukKL2lHI 4qL3bBqKfQjY1PUkcS494PdKxzB DhBmgcR91lS4VljGO+PHRy Ccz2NVAiuGcdFQ5laPXqHUvnWp8 oPRD7OmTsOpZhUXdgF6RvHQOizh yyhiyojCJ4KCQwASPajT41 Yr8cmNolKz0rIIRjWZT6PXQdqFZ vW1HxcL3cRcTsPZEcULHpR6XypN UjJLzyY147XJniQrM7IKAz vhIxV1AeUNKoxXtdEzK0e8A0Ae5 EaLrkqPAoHD5cMmYaNLa2W2OzNs l8VXScaMlmHV2cyFWvSFga Ft5vnGtqkDakMK1fNMGoycsmm25 7PhMwh7wnEKZzpKAaVQwcGEG1I3 1gr0O9ZBSmXATaQOV8eGG9 gT4qaAalniludZTdcTwfibCbpId hJFvbQUhvN264YDPinEekSqMBAb b5T7AvMxw5DMPshGovCO3q uLKnILhtCk0caAcazZtsPI8jIKY zpawxc854EzAra8uxJDIfrIXgKF fjOWG2R28pk7I1DAAtINYi BOA6sQQ6bA1dqYbiwzjxpSHkdJz qvuYymGugHUkrUOhkT708TVXpcY rnLs0ATth5H9AaDet3SEBu jEacBS7mlQLdCQqhCs6lyUcvoRt hFC8vBDPqchenl325PqFch5ijFG VlqWFrYWduYXN0N89ej9Z6 UAMqLDEoZEY1qWZ4kM3rkLcdgar gbGVmdDsgdmVydGljYWwtYWxpZ2 46IHRvcDsnPlBheWVyOjwv dGQ+SM55th15B2WxLiwwJpe2PUU tZOE6aLU9lK5xPWRbQDhzf7Q3iD X8M5OmurCrue4qg9fqGZQy ZTog (more content not included)... Normal [facility] Consent for Procedure/Surger yon 03-21-2022 Consent for Procedure/Surgery [id number]:127 Normal [facility] Consent for Treatmenton Consent for Treatment [id number]:127 Normal [facility] Inpatient Patient Summaryon 03-21-2022 Inpatient Patient Summary [place] [id number] Clinical Summary Person Information Name: GUI ORTIZ SR Age: 67 Years : 1955 Sex: Male PCP: Tyson Jaquez MD Marital Status: Phone: [phone] Race: White Ethnicity: or Language: Mauritian Visit Id: Visit 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 / ELEVATED PSA / HEMATURIA Speciality: Acuity: Enc Type: Outpatient Med Service: Surgery Arrival: 03/21/2022 10:25:04 Discharge: Dispo Type: Address: [address] [place], [place] [id number] Provider Notes: Diagnosis: Problems Active Asymptomatic microscopic [...] Follow up: With: Address: When: Casper RAUSCH [address] [place] [address] Business (1) Within 5 to 7 days With: Address: When: [place] [address] Business (1) Type Location Start [facility] URO Office Visit [facility] 05/22/2022 11:00 AM 05/22/2022 11:15 AM Confirmed Patient Education Information: Normal [facility] IntraOperative Documentson 1 IntraOperative Documents [id number]:127 Normal [facility] Main OR Intraoperative Recor don 03-21-2022 Main OR Intraoperative Record IntraOp Document Type FTURO Summary Primary Physician: Casper RAUSCH MD Finalized Date/Time: 03/21/22 11:42:35 Pt. Name: GUI ORTIZ SR/Sex: 1955 Male Med Rec #: [id number] Physician: Casper RAUSCH MD Financial #: [id number] Pt. Type: O Room/Bed: / Admit/Disch: 03/21/22 [...] Usha Arevalo Role Performed Surgeon - Primary Director Of Retail Analytics - Primary Scrub - Primary Time In 03/21/22 11:15:00 03/21/22 11:15:00 03/21/22 11:15:00 Time Out 03/21/22 11:26:00 03/21/22 11:26:00 03/21/22 11:26:00 Procedure CYSTOSCOPY LOCAL(.) CYSTOSCOPY LOCAL(.) CYSTOSCOPY LOCAL(.) Comments Last Modified By: Mao RN, CNOR, Mao RN, ZAHRAAOR, Mao EASON, ZAHRAAOR, Irina 03/21/22 Irina [...] SONIA Cavanaugh RN, Applicable) Nikole Arevalo CST, Usha Valdes Time Out Complete 03/21/22 11:16:00 Allergies Reviewed? [...] SONIA Cavanaugh RN, Ruthann 03/21/22 11:42 Normal [facility] Main OR Preoperative Recordo n 03-21-2022 Main OR Preoperative Record Holding Area Document Type FTURO Summary Primary Physician: Casper RAUSCH MD Finalized Date/Time: 03/21/22 11:17:09 Pt. Name: GUI ORTIZ SR /Sex: 1955 Male Med Rec #: [id number] Physician: Casper RAUSCH MD Financial #: [id number] Pt. Type: O Room/Bed: / Admit/Disch: 03/21/22 [...] Complaints of Pain: No Skin Integrity Intact, [place], Warm, & Dry Vitals - EU Blood Pressure 100/70 Pulse 59 bpm Respirations 16 br/min SPO2 98 % Additional CHANEL RN Reviewed Yes Specimens Collected Last Modified By: SONIA Cavanaugh RN, Ruthann 03/21/22 11:17:07 General Comments: Temp 36.4 Temporal Finalized By: SONIA Cavanaugh RN, Ruthann Document Signatures Signed By: Adwoa Little LPN 03/21/22 10:38 SONIA Cavanaugh RN, Ruthann 03/21/22 11:17 Normal [facility] Operative Reporton 2 Operative Report Patient: ANUJ [...] with antibiotic coverage, Follow up arranged. Normal [facility] Comment on above: Result Comment: Elec tronically Signed By: Casper RAUSCH MD\.br\Date and Time Signed: 03/21/22 11:28 EDT Outpatient Surgery Discharge Instructionon 03-21-2022 Outpatient Surgery Discharge Instruction [place] [id number] Patient Discharge Instructions PERSON INFORMATION Name: GUI [...] Follow up: With: Address: When: Casper RAUSCH [address] [place] [address] [place] [address] Business (1) Within 5 to 7 days With: Address: When: Casper RAUSCH [address] [place] [phone] Business (1) Type Location Start [facility] Office Visit [facility] 05/22/2022 11:00 AM 05/22/2022 11:15 AM Confirmed Comment: PATIENT EDUCATION INFORMATION Instructions: ANGEL Fox SR, JUAN A, have received the attached patient education materials/instructions and have verbalized understanding: May we do a follow up call? Yes No I was present when discharge instructions were given Patient Signature Date Clinican/Nurse Signature Date You may receive a survey from [facility] asking you to rate your care experience. Your feedback is important and will help us understand what we do well and how we can improve the quality of care we provide to you, your loved ones and our community. It?s an honor to serve you. Thank you for choosing [facility] Normal [facility] Patient Educationon 03-21-20 Patient Education Normal [facility] UroVysion Fish and Urine Cyt o ([facility])on 03-21-2022 [facility] Method of Extraction Voided Normal [facility] Comment on above: Performed By: #### 1 [id number] ####[facility] [address] [place] [address] [facility] Number of Jars 1 Invalid Interpretation Code [facility] Comment on above: Performed By: #### 1 [id number] ####[facility] [address] [place] [address] [facility] Specimen Urine Normal [facility] Comment on above: Performed By: #### 1 [id number] ####[facility] [address] [place] [address] [facility] Type of Service Technical Only Normal [facility] Comment on above: Performed By: #### 1 [id number] ####[facility] [address] [place] [address] Lab Reportson 03-15-2022 Lab Reports [id number]:127 Normal [facility] PSA, FREE AND TOTAL RATIOon 03-13-2022 % Free PSA 15.5 % Normal [facility] Comment on above: Result Comment: The [...] men. Performed By: #### P SAFREE #### [facility] [address] [place] [address] Dr. Rehana Martinez Prostate specific Ag [Mass/Vol] 4.9 ng/mL Critically high 0.0-4.0 [facility] Comment on above: Result Comment: Arnodlo CHOPRAIA methodology. . According to the [place] [employer], Serum PSA should decrease and [...] disease. Performed By: #### P SAFREE #### [facility] [address] [place] [address] Dr. Rehana Martinez PSA, Free 0.76 ng/mL Normal N/A [facility] Comment on above: Result Comment: Arnoldo benedict ECLIA methodology. Performed By: #### P SAFREE #### [facility] [address] [place] [address] Dr. Rehana Martinez CREATININEon 12-14-2021 Creatinine [Mass/Vol] 1.01 mg/dL Normal 0.70-1.30 [facility] Comment on above: Performed By: #### C MAXINE #### [facility] [address] [place] [address] Dr. Rehana Martinez EGFR-AF LEBANESE >60 Normal >=60 [facility] Comment on above: Performed By: #### C MAXINE #### [facility] [address] [place] [address] Dr. Rehana Martinez EGFR-NON AF LEBANESE >60 Normal >=60 [facility] Comment on above: Performed By: #### C MAXINE #### [facility] [address] [place] [address] ABD/PELV W CONon [...] by: BRANDIE RUDD Date: 2021-12-14 11:36 Normal [facility] Vital Signs Date Time Vital Sign Value Performing Clinician Yunier nunez 03-27-2022 10:11-0400 Blood Pressure Location [employer] [facility] 03-27-2022 10:11-0400 Diastolic blood pressure 57 mm[Hg] [employer] [facility] 03-27-2022 10:11-0400 Heart rate 57 /min [employer] [facility] 03-27-2022 10:11-0400 Respiratory rate 16 /min [employer] [facility] 03-27-2022 10:11-0400 Systolic blood pressure 154 mm[Hg] Casper RAUSCH [facility] 12-05-2021 08:16-0400 Blood Pressure Location Monica Mondragon Jr. [facility] 12-05-2021 08:16-0400 Diastolic blood pressure 84 mm[Hg] Monica Mondragon Jr. [facility] 12-05-2021 08:16-0400 Heart rate 75 /min Monica Mondragon Jr. [facility] 12-05-2021 08:16-0400 Systolic blood pressure 118 mm[Hg] Monica Mondragon Jr. [facility] Encounters Encounter Date Encounter Type Care Provider Facility Start: 02-11-2024 ambulatory ELIZABETH Teague ty:[facility] Start: 08-14-2023 End: 08-14-2023 ambulatory LEONORAAB MARIELA [facility] Start: 07-18-2023 End: 07-18-2023 ambulatory MAYELIN WOLFE [facility] Start: 07-08-2023 Evaluation and manag ement of inpatient [facility] Start: 07-07-2023 Evaluation and manag ement of inpatient [facility] Start: 07-06-2023 Evaluation and manag ement of inpatient [facility] Start: 07-05-2023 Evaluation and manag ement of inpatient [facility] Start: 07-05-2023 End: 07-09-2023 Evaluation and management of inpatient DOMENIC ZIEGLERARZ [facility] Start: 05-16-2023 ambulatory JUANITA [facility] Start: 05-14-2023 End: 05-14-2023 ambulatory VALENTINA YEBOAHCKER [facility] Start: 05-06-2023 Evaluation and manag ement of inpatient ELINA KISHAN [facility] Start: 05-03-2023 End: 05-04-2023 ambulatory [facility] Start: 05-01-2023 Evaluation and manag ement of inpatient [facility] Start: 04-30-2023 Evaluation and manag ement of inpatient [facility] Start: 04-30-2023 Evaluation and manag ement of inpatient [facility] Start: 04-30-2023 Evaluation and manag ement of inpatient [facility] Start: 04-29-2023 Evaluation and manag ement of inpatient [facility] Start: 04-27-2023 Evaluation and manag ement of inpatient [facility] Start: 04-26-2023 Evaluation and manag ement of inpatient [facility] Start: 04-25-2023 Evaluation and manag ement of inpatient [facility] Start: 04-25-2023 Evaluation and manag ement of inpatient KAREY SAWANT [facility] Start: 04-24-2023 Evaluation and manag ement of inpatient [facility] Start: 04-24-2023 Evaluation and manag ement of inpatient [facility] Start: 04-23-2023 [facility] Start: 04-23-2023 Evaluation and manag ement of inpatient ZANDER BLEDSOE [facility] Start: 04-23-2023 End: 04-24-2023 Evaluation and management of inpatient [facility] Start: 04-23-2023 Evaluation and manag ement of inpatient KAREY SAWANT [facility] Start: 04-23-2023 Evaluation and manag ement of inpatient KAREY ACUNAWAHARLEY [facility] Start: 04-22-2023 Evaluation and manag ement of inpatient [facility] Start: 04-22-2023 Evaluation and manag ement of inpatient [facility] Start: 04-22-2023 [facility] Start: 04-22-2023 End: 05-01-2023 Evaluation and management of inpatient [facility] Start: 04-09-2023 End: 04-10-2023 Encounter for preprocedural cardiovascular examination [facility] Start: 04-09-2023 End: 04-10-2023 ambulatory [facility] Start: 04-04-2023 ambulatory [facility] Start: 03-23-2023 Evaluation and manag ement of inpatient KAREY SAWANT [facility] Start: 03-23-2023 [facility] Start: 03-23-2023 Evaluation and manag ement of inpatient DOMENIC [facility] Start: 03-22-2023 Evaluation and manag ement of inpatient [facility] Start: 03-22-2023 [facility] Start: 03-21-2023 End: 03-23-2023 Evaluation and management of inpatient [facility] Start: 01-29-2023 End: 01-30-2023 ambulatory ELIZABETH LINDSAY Facility:[facility] Start: 01-29-2023 End: 01-29-2023 Patient encounter procedure ELIZABETH LINDSAY [facility] Start: 09-11-2022 ambulatory [facility] Start: 09-06-2022 End: 09-07-2022 ambulatory [facility] Start: 09-04-2022 ambulatory [facility] Start: 08-04-2022 End: 08-05-[address] TYSON JAQUEZ . Facility:[facility] Start: 07-25-2022 End: 07-26-[address] TYSON JAQUEZ . Facility: Start: 03-27-2022 End: 03-28-2022 ambulatory Casper RAUSCH Facility:[facility] Start: 03-27-2022 End: 03-27-2022 Patient encounter procedure Casper RAUSCH [facility] Start: 03-21-2022 End: 03-22-2022 ambulatory Casper RAUSCH Facility:[facility] Start: 03-21-2022 End: 03-21-2022 Patient encounter procedure Casper RAUSCH [facility] Start: 03-12-2022 End: 03-13-[address] CASPER RAUSCH Facility:[facility] Start: 02-05-2022 End: 02-05-2022 Patient encounter procedure Monica Mondragon Jr. [facility] Start: 12-14-2021 End: 12-15-2021 ambulatory MONICA MONDRAGON JR Facility:[facility] Start: 12-05-2021 End: 12-05-2021 Patient encounter procedure Monica Mondragon Jr. [facility] [place] Procedures Date Procedure Procedure Detail Performing Clinician Start: 08-14-2023 Follow-up visit KAREY SAWANT Start: 05-16-2023 Follow-up visit KAREY SAWANT Start: 05-14-2023 Follow-up visit KAREY SAWANT Start: 04-04-2023 Follow-up visit KAREY SAWANT Start: 09-11-2022 Follow-up visit KAREY SAWANT Start: 09-04-2022 Follow-up visit KAREY ASWANT Start: 07-25-[address] FABIOLA JAQUEZ . Comment on above: Performed By: #### P SASC #### [facility] [address] [place], [place] [address] Dr. Rehana Martinez Start: 03-21-2022 Cystoscopy ELIZABETH JOHNSTON Start: 12-14-[address] FABIOLA JAQUEZ . Comment on above: Performed By: #### P SAD ####[facility] [id number] [place], [place] [address]TgDr. Rehana Martinez Start: 01-23-2018 Cystoscopy Monica stephen Jr. Comment on above: 07/22/09, 01/23/18 07/22/09, 01/23/18 Immunizations Immunization Date Immunization Notes Care Provider Cipriano moody 06-20-2021 SARS-CoV-2 (COVID-19 ) mRNA BNT-162b2 eduardox Casper RAUSCH [facility] 09-13-2020 SARS-CoV-2 (COVID-19 ) Ad26 vaccine, recombinant Monica Mondragon Jr. [facility] 08-22-2020 SARS-CoV-2 (COVID-19 ) Ad26 vaccine, recombinant Monica Mondragon Jr. [facility] NEGATED: Highlighted row has not occurred!12-05-2021 influenza virus vaccine, unspecified formulation Monica Mondragon Jr. [facility] Payers Date Payer Category Payer Medicare [id number] 1960 Unknown [id number] 1955 Unknown [id number] 2.16.84 [id number] 1955 Unknown [id number] 2.16.84 [id number] 1955 Unknown [id number] 2.16.84 [id number] 1955 Unknown [id number] 2.16.84 [id number] 1955 Unknown [id number] 2.16.8 [id number] 1955 Unknown [id number] 2.16.8 [id number] 1955 Unknown [id number] 2.16.8 [id number] 1955 Unknown [id number] 2.16.8 [id number] Social History Date Type Detail Facility Start: 12-05-2021 Tobacco smoking status Heavy t obacco smoker (finding) [facility] Sex Assigned At Male [facility] Functional Status Date Assessment Result Facility 01-29-2023 Functional Status N/A [facility] 03-27-2022 Functional Status N/A [facility] 03-15-2022 Functional Status N/A [facility] 12-05-2021 Functional Status N/A [facility] Clinical Notes 05-23-2021 to 08-14-2023 LaboratoryLaboratoryLaboratoryLaboratory Note Date & Type Note Facility 08-14-2023 Note [facility] 08-01-2023 Note [facility] 07-30-2023 Note [facility] 07-18-2023 Note [facility] 07-18-2023 Note [facility] 07-18-2023 Note Increase imdur to 60 mg daily, decrease coreg back to 3.125 mg bid in light of bradycardia and somewhat labile B/P. [facility] 07-18-2023 Note [facility] 07-18-2023 Note [facility] 07-09-2023 Note [facility] 07-09-2023 Note [facility] 07-09-2023 Note [facility] 07-08-2023 Note [facility] 07-07-2023 Note [facility] 07-07-2023 Note [facility] 07-06-2023 Note [facility] 07-02-[address] chest wo [facility] 05-16-2023 Note [facility] 05-16-2023 Note [facility] 05-16-2023 Note [facility] 05-14-2023 Note [facility] 05-14-2023 Note [facility] 05-01-2023 Note Patient provided a c opy of the AVS. All questions answered. Patient discharged with belongings and taken down with transport via wheelchair and family at bedside. [facility] 05-01-2023 Note [facility] 05-01-2023 Note [facility] 05-01-2023 Note [facility] 05-01-2023 Note [facility] 04-30-2023 Note [facility] 04-30-2023 Note [facility] 04-29-2023 Note [facility] 04-29-2023 Note [facility] 04-29-2023 Note [facility] 04-29-2023 Note [facility] 04-28-2023 Note [facility] 04-28-2023 Note [facility] 04-27-2023 Note [facility] 04-27-2023 Note [facility] 04-27-2023 Note [facility] 04-27-2023 Note [facility] 04-26-2023 Note [facility] 04-26-2023 Note [facility] 04-26-2023 Note [facility] 04-26-2023 Note [facility] 04-26-2023 Note [facility] 04-26-2023 Note [facility] 04-25-2023 Note [facility] 04-25-2023 Note Attempted to call wi fe to get information and give updates. Was unable to reach her, will continue to try. [facility] 04-25-2023 Note [facility] 04-25-2023 Note [facility] 04-25-2023 Note [facility] 04-24-2023 Note Patient is still on vent support. Per RN was off and placed back on yesterday. Consult for s/p CABG. SW to follow. [facility] 04-24-2023 Note [facility] 04-24-2023 Note Physical Therapy Patient intubated/sedated at this time. PT will check back and follow as appropriate. CHANTEL Matos [facility] 04-24-2023 Note [facility] 04-24-2023 Note Occupational Therapy Cancel Note Reason: Patient intubated and sedated at this time. OT will continue to follow and will re-attempt as able. Time in: 0808 Check no charge Thelma Jin MOT, OTR/L, CLT [facility] 04-24-2023 Note [facility] 04-24-2023 Note [facility] 04-23-2023 Note [facility] 04-23-2023 Note [facility] 04-23-2023 Note [facility] 04-23-2023 Note [facility] 04-23-2023 Note [facility] 04-22-2023 Note TRIGGER: PRESSURE 1:1 FULLY AUGMENTED [facility] 04-22-2023 Note TRIGGER: PRESSURE 1:1 FULLY AUGMENTED [facility] 04-22-2023 Note INSERTED WITHOUT COM PLICATION USING STERILE TECHNIQUE; DRAINING CLEAR YELLOW URINE; TO BE MONITORED BY ANESTHESIA FOR DURATION OF THE CASE [facility] 04-22-2023 Note [facility] 04-22-2023 Note [facility] 04-22-2023 Note [facility] 04-09-2023 Note [facility] 04-09-2023 Note [facility] 04-04-2023 Note [facility] 04-01-2023 Note [facility] 03-23-2023 Note [facility] 03-23-2023 Note [facility] 03-22-2023 Note [facility] 03-22-2023 Note [facility] 09-11-2022 Note [facility] 09-04-2022 Note I reviewed with the resident the medical history and the resident???s findings on physical examination. I discussed with the resident the patient???s diagnosis and concur with the treatment plan as documented in the resident note. Shmuel Vásquez MD [facility] 09-04-2022 Note [facility] 03-27-2022 Hospital Discharge instructions Patient Education [...] urethra. Follow these instructions at home: Take jsxn-szn-qvjziax and prescription medicines only as told by [...] 06/03/2006 Document Revised: 04/28/2019 Document Reviewed: 07/08/2017 [employer] Patient Education 2020 [employer]. Follow Up Care 03/21/2022 11:25:28 With:Giancarlo Campbell MD, ORLIN Pena Address: [facility] [address] [place] [address]- When: Unknown [facility] 03-21-2022 Note [id number]:[email or web address] [facility] 02-27-2022 Hospital Discharge instructions Follow Up Care 02/27/2022 13:20:12 With:Casper RAUSCH Address: [address] [place], [place] [address], [place] [address]- Business (1) When:5 to 7 days With:Casper RAUSCH Address: [address] [place] [address]- Business (1) When: Unknown [facility] 12-05-2021 Hospital Discharge instructions Patient Education [...] Follow these instructions at home: Medicines Take oiuf-kby-yyrzbxi and prescription medicines only as told by [...] or the blood stops without treatment. Take mwng-ads-igiifie and prescription medicines only as told by your health care provider. Drink enough fluid to keep your urine clear or pale yellow. This information is not intended to replace advice given to you by your health care provider. Make sure you discuss any questions you have with your health care provider. Document Released: 06/03/2006 Document Revised: 10/28/2019 Document Reviewed: 07/06/2017 [employer] Patient Education [employer]. Follow Up Care 05/30/2021 15:33:59 With:Monica Mondragon Jr., MD, URO Address: [facility] [address], [place] [phone] When: Unknown [facility] 05-23-2021 Hospital Discharge instructions Follow Up Care 05/23/2021 11:27:47 With:ELIZABETH LINDSAY PA-C, URL Address: [address] [place], [place] [address]es [place] [address] When:Within 1 Year(s) Comments:w/PSA [facility] Evaluation + Plan note Future Appointments Appointment Date:05/22/2022 11:00:00 AM Scheduled Provider:Monica Mondragon Jr., MD Location:[facility] Appointment Type:URO Office Visit Diagnostic Tests PendingPSA Total 12/05/21 Future Scheduled TestsPSA Free & Total 05/30/21 [facility] Evaluation + Plan note Future Appointments Appointment Date:05/22/2022 11:00:00 AM Scheduled Provider:Monica Mondragon Jr., MD Location:[facility] Appointment Type:URO Office Visit Future Scheduled TestsPSA Free & Total 05/30/21 [facility] Evaluation + Plan note Future Appointments Appointment Date:03/27/2022 09:45:00 AM Scheduled Provider:Casper RAUSCH MD Location:[facility] Appointment Type:URO Office Visit Appointment Date:05/22/2022 11:00:00 AM Scheduled Provider:Monica Mondragon Jr., MD Location:[facility] Appointment Type:URO Office Visit Diagnostic Tests PendingUroVysion Fish and Urine Cyto ([facility]) 03/21/22 Future Scheduled TestsPSA Free & Total 05/30/21 [facility] Evaluation + Plan note Future Appointments Appointment Date:09/18/2022 09:15:00 AM Scheduled Provider:Monica Mondragon Jr., MD Location:[facility] Appointment Type:URO Office Visit Diagnostic Tests PendingPSA Free & Total 06/17/22 Future Scheduled TestsPSA Free & Total 05/30/21 [facility] Evaluation + Plan note Future Appointments Appointment Date:02/11/2024 08:30:00 AM Scheduled Provider:ELIZABETH LINDSAY PA-C Location:[facility] Appointment Type:URO Office Visit Diagnostic Tests PendingPSA Total 01/29/23 [facility] Hospital course Narrative No data available for this section [facility] Hospital Discharge instructions No data available for this section [facility] Moku Progress note No data available for this section [facility] Summary Purpose Family History No Family History Records FoundNo Family History Records FoundNo Family History Records Found Advance Directives No Advanced Directives Records FoundNo Advanced Directives Records FoundNo Advanced Directives Records Found Additional Source Comments Care Team (unrecognized sect ion and content) Personnel Name: Tyson Jaquez MD Address: [address] [place] [address] Personnel Name: Tyson Jaquez MD Address: [address] [place] [address] Personnel Name: Tyson Jaquez MD Address: Address: [address] [place] [address] Personnel Name: Tyson Jaquez MD Address: Address: [address] [place] [address] Personnel Name: Tyson Jaquez MD Address: Address: [address] [place] [address] (unrecognized sect ion and content) No Status Records FoundNo Status Records FoundNo Status Records Found INFORMATION SOURCE (unrecogn ized section and content) DATE CREATED AUTHOR 08/10/2022 [facility] DATE CREATED AUTHOR AUTHOR'S ORGANIZ ATION 02/13/2023 [facility] DATE CREATED AUTHOR AUTHOR'S ORGANIZ ATION 08/30/2023 [facility] FOR RECORDS PERTAINING TO PATIENTS WHO [...] BE BASED ON THE PRIMARY CLINICAL RECORDS. [employer] provides no warranty or guarantee of the accuracy or completeness of information in this document.
--- NOTE | 2023-08-31 17:26 | XR_ITS ---
The [address] [address] Patient Name: ESEQUIEL ORTIZ MRN: [id number] date: 1955 Sex: M Assigned Patient Location: ED.MAIN Current Patient Location: ER Accession/Order Number: [id number] Exam Date: 08/31/2023 17:41 Report Date: 08/31/2023 17:57 At the request of: MARSHALL LILLY Procedure: XR chest 1V EXAM: CHEST 1 VIEW HISTORY: Chest pain TECHNIQUE: Chest, one view. COMPARISON: 07/05/2023. FINDINGS: Lungs are clear. No focal consolidation, pleural effusion, or pneumothorax. Pulmonary vasculature is within normal limits. There are median sternotomy changes with normal heart size. XR/XR chest 1V IMPRESSION: 1. No acute cardiopulmonary disease. Electronically authenticated by: NICHO SEXTON Date: 08/31/2023 17:57
--- NOTE | 2023-08-31 17:26 | ECG_ITS ---
The [facility] Test Date: 2023-08-31 Pat Name: ESEQUIEL ORTIZ Department: Room: - Gender: Male [employer]: : 1955 Requested By: 0929 Order Number: [id number] Reading MD: GABRIELA WHITE Measurements Intervals [place] Rate: 69 P: 44 [place]: 158 QRS: 35 QRSD: 88 T: 90 QT: 398 QTc: 417 Interpretive Statements 1100 Sinus rhythm 3114 Cannot rule out anterior myocardial infarction, age undetermined ST elevation noted in inferior leads, can't exclude acute injury 9150 abnormal ECG Compared to ECG 08/31/2023 17:25:44 Myocardial infarct finding now present Ventricular premature complex(es) no longer present ST (T wave) deviation no longer present Electronically Signed On 09-02-2023 22:15:53 EDT by GABRIELA WHITE
--- NOTE | 2023-08-31 17:33 | ED_ITS ---
Documented by User: SAMMIE Jiménez 08/31/23 22:20 HPI - Chest Pain General Chief Complaint: Chest Pain Stated Complaint: Chest Pain Time Seen by Provider: 08/31/23 17:26 Source: patient Mode of arrival: walk-in Limitations: no limitations History of Present Illness HPI narrative: Patient is a 68-year-old male who presents to the emergency department for chest pain that began 5 minutes prior to arrival, at time of my evaluation, he states the chest pain has resolved. He states he was watching television when he noted pain across his chest with warmth in his upper arms. He states this happened several times earlier this week. 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 He has a history of diabetes, high cholesterol and hypertension. He is on aspirin and Plavix. He reports seeing his physician several days ago in the office and being given something to put under my tongue . He states he took 1 of these tablets prior to arrival and burped and the pain went away. He was only prescribed Lasix and Prilosec this week. He is adamant that he has not been using nitroglycerin for his pain relief this week. Risk Factors Coronary artery disease risk factors: diabetes, hyperlipidemia and hypertension Related Data Home Medications Medication Instructions Recorded Confirmed pantoprazole 40 mg tablet,delayed 40 mg PO DAILY 03/21/23 08/31/23 release ascorbic acid (vitamin C) 500 mg 1 g PO QAM 05/06/23 08/31/23 tablet (Vitamin C) aspirin 81 mg chewable tablet 1 tab PO QAM 05/06/23 08/31/23 atorvastatin 40 mg tablet 80 mg PO QAM 05/06/23 08/31/23 clopidogrel 75 mg tablet 75 mg PO QAM 05/06/23 08/31/23 isosorbide mononitrate 30 mg 60 mg PO DAILY 07/05/23 08/31/23 tablet,extended release 24 hr carvedilol 3.125 mg tablet 3.125 mg PO Q12H 08/31/23 08/31/23 furosemide 20 mg tablet (Lasix) 20 mg PO .COMPLEX 08/31/23 08/31/23 hyoscyamine sulfate 0.125 mg 0.125 mg PO Q6H PRN dyspepsia 08/31/23 08/31/23 sublingual tablet (Levsin/SL) lisinopril 10 mg tablet 10 mg PO QAM 08/31/23 08/31/23 Allergies Allergy/AdvReac Type Severity Reaction Status Date / Time No Known Drug Allergies Allergy Verified 08/31/23 17:20 Review of Systems ROS Constitutional Denies: fever or chills Ears, nose, mouth, and throat Denies: throat pain Cardiovascular Reports: chest pain Respiratory Denies: shortness of breath or cough Gastrointestinal Denies: nausea or vomiting Musculoskeletal Denies: back pain Integumentary/Breast Denies: rash Neurological Denies: headache Hematologic/Lymphatic Reports: easy bruising and easy bleeding [facility] Medical History (Updated 08/31/23 @ 22:20 by SAMMIE Jiménez) PVD (peripheral vascular disease) ?I73.9 - Peripheral vascular disease, unspecified (ICD-10) Hypertension ?I10 - Essential (primary) hypertension (ICD-10) CAD (coronary artery disease) ?I25.10 - Atherosclerotic heart disease of [place] coronary artery without angina pectoris (ICD-10) LLL pneumonia ?J18.9 - Pneumonia, unspecified organism (ICD-10) Acute non-ST elevation myocardial infarction (NSTEMI) ?I21.4 - Non-ST elevation (NSTEMI) myocardial infarction (ICD-10) Surgical History (Updated 05/06/23 @ 21:44 by Lesley Mike) History of open heart surgery ?Z98.890 - Other specified postprocedural states (ICD-10) Social History Within the past year, how often did you have a drink containing alcohol: never Score interpretation: A score less than 4 is consistent with normal alcohol consumption. Smoking status: Former smoker Non-prescribed substance use: denies use Exam Narrative Exam Narrative: Gen.: Awake, alert, in no distress Head: Normocephalic, atraumatic ENT: Moist mucous membranes Respiratory: No respiratory distress, lungs clear bilaterally Cardio: Regular rate and rhythm Gastrointestinal: Abdomen is soft, nondistended and nontender to palpation Extremities: Moves extremities equally, no pedal edema Psych: Normal mood and affect Neuro: No focal neuro deficit Skin: Warm, dry, intact Constitutional Vital Signs, click to edit/add: Last Vital Signs Temp 97.8 F 08/31/23 17:14 Pulse 47 L 08/31/23 20:30 Resp 15 08/31/23 20:30 BP 153/68 H 08/31/23 20:17 Pulse Ox 96 08/31/23 20:30 Course Vital Signs Vital signs: Vital Signs Temperature 97.8 F 08/31/23 17:14 Pulse Rate 60 08/31/23 17:14 Respiratory Rate 20 08/31/23 17:14 Blood Pressure 139/70 08/31/23 17:14 Pulse Oximetry 100 08/31/23 17:14 Temperature 97.8 F 08/31/23 17:14 Pulse Rate 47 L 08/31/23 20:30 Respiratory Rate 15 08/31/23 20:30 Blood Pressure 153/68 H 08/31/23 20:17 Pulse Oximetry 96 08/31/23 20:30 MDM - Chest Pain MDM Narrative Medical decision making narrative: On arrival to the emergency department, patient denied chest pain but did report warmth in the upper extremities bilaterally. He was given aspirin and when he had a slight return of chest pain was given sublingual nitro. He was initially noted to be in sinus bradycardia with couplet PVCs. This soon resolved after the patient presented to the ER, repeat EKG shows normal sinus rhythm with improvement of the lateral leads compared to previous in June when he had a non-STEMI. Initial troponin, chest x-ray, other lab studies are unremarkable. I discussed the case with Dr. Griffiths ([id number]) for [facility] cardiology. He recommended that based on the patient's history and presentation, he will be treated as unstable angina and transferred to [facility] to hospitalist service with cardiology consult. 2220: Acceptance from [place] hospitalist is still pending and case is turned over to attending physician at this time Medical Records Data Attestation: I reviewed the patient's medical records. Lab Data Attestation: I reviewed the patient's lab results. Labs: Lab Results 08/31/23 08/31/23 Range/Units 17:30 19:33 WBC 9.4 (4.0-11.0) 10^3/uL RBC 5.07 (4.70-6.10) 10^6/uL Hgb 14.9 (14.0-18.0) g/dL Hct 44.3 (42.0-54.0) % MCV 87.4 (80.0-94.0) fL MCH 29.4 (25.9-34.0) pg MCHC 33.6 (29.9-35.2) g/dL RDW 14.0 (11.0-15.0) % Plt Count 240 (150-450) 10^3/uL MPV 9.2 L (9.5-13.5) fL Neut % (Auto) 56.3 (43.0-75.0) % Lymph % (Auto) 33.8 (20.5-60.0) % [place] % (Auto) 8.7 (1.7-12.0) % Eos % (Auto) 0.9 (0.9-7.0) % Baso % (Auto) 0.2 (0.2-2.0) % Neut # (Auto) 5.3 (1.4-6.5) 10^3/uL Lymph # (Auto) 3.2 (1.2-3.8) 10^3/uL [place] # (Auto) 0.8 (0.3-0.8) 10^3/uL Eos # (Auto) 0.1 (0.0-0.7) 10^3/uL Baso # (Auto) 0.0 (0.0-0.1) 10^3/uL Abs Immat Gran (auto) 0.01 (0.00-0.03) 10^3/uL Imm/Tot Granulo (auto) 0.1 (0.0-0.5) % PT 10.5 (9.0-11.6) sec INR 0.99 APTT 31.7 (22.3-36.2) sec Sodium 136 (136-145) mmol/L Potassium 3.4 L (3.5-5.1) mmol/L Chloride 102 (98-107) mmol/L Carbon Dioxide 23.0 (21.0-32.0) mmol/L Anion Gap 14.4 BUN 21.0 H (7.0-18.0) mg/dL Creatinine 1.06 (0.70-1.30) mg/dL Est GFR ( Amer) >60 (>=60) Est GFR (Non-Af Amer) >60 (>=60) BUN/Creatinine Ratio 19.8 Glucose 167 H (74-106) mg/dL Calcium 9.2 (8.5-10.1) mg/dL Total Bilirubin 0.4 (0.2-1.0) mg/dL AST 16 (15-37) U/L ALT 16 (16-63) U/L Alkaline Phosphatase 165 H (46-116) U/L Troponin I High Sens 16.9 24.0 (4.0-76.1) pg/mL NT-Pro-B Natriuret Pep 1047.0 H (<=900.0) pg/mL Total Protein 7.9 (6.4-8.2) g/dL Albumin 3.7 (3.4-5.0) g/dL Globulin 4.2 g/dL Albumin/Globulin Ratio 0.9 Lipase 61.0 (16.0-77.0) U/L Imaging Data Chest x-ray: Attestation: I have reviewed the pertinent imaging results. Radiologist's impression: ITS Impressions Chest X-Ray 08/31/23 17:26 IMPRESSION: 1. No acute cardiopulmonary disease. Electronically authenticated by: NICHO SEXTON Date: 08/31/2023 17:57 ECG Data Attestation: I personally reviewed and interpreted this ECG as follows: (Normal sinus rhythm at a rate of 74 with couplet PVCs, no acute ST elevation. EKG #2: Normal sinus rhythm at a rate of [address] elevation or ectopy. EKG is reviewed by attending physician. EKG is improved with regard to T wave inversion in the lateral leads compared to 07/05/2023) ECG interpretation date: 08/31/23 Discharge Plan Discharge Patient Disposition: Still a Patient Documented by User: Guy Leary 08/31/23 22:42 HPI - Chest Pain General Chief Complaint: Chest Pain Stated Complaint: Chest Pain Time Seen by Provider: 08/31/23 17:26 Related Data Home Medications Medication Instructions Recorded Confirmed pantoprazole 40 mg tablet,delayed 40 mg PO DAILY 03/21/23 08/31/23 release ascorbic acid (vitamin C) 500 mg 1 g PO QAM 05/06/23 08/31/23 tablet (Vitamin C) aspirin 81 mg chewable tablet 1 tab PO QAM 05/06/23 08/31/23 atorvastatin 40 mg tablet 80 mg PO QAM 05/06/23 08/31/23 clopidogrel 75 mg tablet 75 mg PO QAM 05/06/23 08/31/23 isosorbide mononitrate 30 mg 60 mg PO DAILY 07/05/23 08/31/23 tablet,extended release 24 hr carvedilol 3.125 mg tablet 3.125 mg PO Q12H 08/31/23 08/31/23 furosemide 20 mg tablet (Lasix) 20 mg PO .COMPLEX 08/31/23 08/31/23 hyoscyamine sulfate 0.125 mg 0.125 mg PO Q6H PRN dyspepsia 08/31/23 08/31/23 sublingual tablet (Levsin/SL) lisinopril 10 mg tablet 10 mg PO QAM 08/31/23 08/31/23 Allergies Allergy/AdvReac Type Severity Reaction Status Date / Time No Known Drug Allergies Allergy Verified 08/31/23 17:20 [facility] Medical History (Updated 08/31/23 @ 22:20 by SAMMIE Jiménez) PVD (peripheral vascular disease) ?I73.9 - Peripheral vascular disease, unspecified (ICD-10) Hypertension ?I10 - Essential (primary) hypertension (ICD-10) CAD (coronary artery disease) ?I25.10 - Atherosclerotic heart disease of [place] coronary artery without angina pectoris (ICD-10) LLL pneumonia ?J18.9 - Pneumonia, unspecified organism (ICD-10) Acute non-ST elevation myocardial infarction (NSTEMI) ?I21.4 - Non-ST elevation (NSTEMI) myocardial infarction (ICD-10) Surgical History (Updated 05/06/23 @ 21:44 by Lesley Mike) History of open heart surgery ?Z98.890 - Other specified postprocedural states (ICD-10) Social History Within the past year, how often did you have a drink containing alcohol: never Score interpretation: A score less than 4 is consistent with normal alcohol consumption. Smoking status: Former smoker Non-prescribed substance use: denies use Exam Constitutional Vital Signs, click to edit/add: Last Vital Signs Temp 97.8 F 08/31/23 17:14 Pulse 47 L 08/31/23 20:30 Resp 15 08/31/23 20:30 BP 153/68 H 08/31/23 20:17 Pulse Ox 96 08/31/23 20:30 Course Vital Signs Vital signs: Vital Signs Temperature 97.8 F 08/31/23 17:14 Pulse Rate 60 08/31/23 17:14 Respiratory Rate 20 08/31/23 17:14 Blood Pressure 139/70 08/31/23 17:14 Pulse Oximetry 100 08/31/23 17:14 Temperature 97.8 F 08/31/23 17:14 Pulse Rate 47 L 08/31/23 20:30 Respiratory Rate 15 08/31/23 20:30 Blood Pressure 153/68 H 08/31/23 20:17 Pulse Oximetry 96 08/31/23 20:30 MDM - Chest Pain MDM Narrative Medical decision making narrative: On arrival to the emergency department, patient denied chest pain but did report warmth in the upper extremities bilaterally. He was given aspirin and when he had a slight return of chest pain was given sublingual nitro. He was initially noted to be in sinus bradycardia with couplet PVCs. This soon resolved after the patient presented to the ER, repeat EKG shows normal sinus rhythm with improvement of the lateral leads compared to previous in June when he had a non-STEMI. Initial troponin, chest x-ray, other lab studies are unremarkable. I discussed the case with Dr. Griffiths ([id number]) for [facility] cardiology. He recommended that based on the patient's history and presentation, he will be treated as unstable angina and transferred to [facility] to hospitalist service with cardiology consult. 2219: Acceptance from [place] hospitalist is still pending and case is turned over to attending physician at this time For this patient encounter I reviewed the mid-level provider?s documentation, medical decision-making and treatment plan, and I personally spent time with this patient. Shared APC visit, physician attestation: [id number]-[id number]: This visit was performed by both a physician and an APC. I personally evaluated and examined the patient. I performed all aspects of MDM as documented. I saw and examined the patient. No beds available at [facility]. Patient's case discussed with tele hospitalist and the patient will be admitted to StepDown unit until bed becomes available at [facility]. - DO Nuris Lab Data Labs: Lab Results 08/31/23 08/31/23 Range/Units 17:30 19:33 WBC 9.4 (4.0-11.0) 10^3/uL RBC 5.07 (4.70-6.10) 10^6/uL Hgb 14.9 (14.0-18.0) g/dL Hct 44.3 (42.0-54.0) % MCV 87.4 (80.0-94.0) fL MCH 29.4 (25.9-34.0) pg MCHC 33.6 (29.9-35.2) g/dL RDW 14.0 (11.0-15.0) % Plt Count 240 (150-450) 10^3/uL MPV 9.2 L (9.5-13.5) fL Neut % (Auto) 56.3 (43.0-75.0) % Lymph % (Auto) 33.8 (20.5-60.0) % [place] % (Auto) 8.7 (1.7-12.0) % Eos % (Auto) 0.9 (0.9-7.0) % Baso % (Auto) 0.2 (0.2-2.0) % Neut # (Auto) 5.3 (1.4-6.5) 10^3/uL Lymph # (Auto) 3.2 (1.2-3.8) 10^3/uL [place] # (Auto) 0.8 (0.3-0.8) 10^3/uL Eos # (Auto) 0.1 (0.0-0.7) 10^3/uL Baso # (Auto) 0.0 (0.0-0.1) 10^3/uL Abs Immat Gran (auto) 0.01 (0.00-0.03) 10^3/uL Imm/Tot Granulo (auto) 0.1 (0.0-0.5) % PT 10.5 (9.0-11.6) sec INR 0.99 APTT 31.7 (22.3-36.2) sec Sodium 136 (136-145) mmol/L Potassium 3.4 L (3.5-5.1) mmol/L Chloride 102 (98-107) mmol/L Carbon Dioxide 23.0 (21.0-32.0) mmol/L Anion Gap 14.4 BUN 21.0 H (7.0-18.0) mg/dL Creatinine 1.06 (0.70-1.30) mg/dL Est GFR ( Amer) >60 (>=60) Est GFR (Non-Af Amer) >60 (>=60) BUN/Creatinine Ratio 19.8 Glucose 167 H (74-106) mg/dL Calcium 9.2 (8.5-10.1) mg/dL Total Bilirubin 0.4 (0.2-1.0) mg/dL AST 16 (15-37) U/L ALT 16 (16-63) U/L Alkaline Phosphatase 165 H (46-116) U/L Troponin I High Sens 16.9 24.0 (4.0-76.1) pg/mL NT-Pro-B Natriuret Pep 1047.0 H (<=900.0) pg/mL Total Protein 7.9 (6.4-8.2) g/dL Albumin 3.7 (3.4-5.0) g/dL Globulin 4.2 g/dL Albumin/Globulin Ratio 0.9 Lipase 61.0 (16.0-77.0) U/L Imaging Data Chest x-ray: Radiologist's impression: ITS Impressions Chest X-Ray 08/31/23 17:26 IMPRESSION: 1. No acute cardiopulmonary disease. Electronically authenticated by: NICHO SEXTON Date: 08/31/2023 17:57 Discharge Plan Discharge Patient Disposition: Still a Patient
[2023-08-31 17:40] LABS: Basophils Percent Auto 0.2 % (0.2-2.0); Eosinophils Absolute Auto 0.1 10^3/uL (0.0-0.7); Eosinophils Percent Auto 0.9 % (0.9-7.0); Hematocrit 44.3 % (42.0-54.0); Hemoglobin 14.9 g/dL (14.0-18.0); Immature Granulocytes Abs Auto 0.01 10^3/uL (0.00-0.03); Immature Granulocytes Pct Auto 0.1 % (0.0-0.5); Lymphocytes Absolute Auto 3.2 10^3/uL (1.2-3.8); Lymphocytes Percent Auto 33.8 % (20.5-60.0); Mean Corpuscular HGB Conc 33.6 g/dL (29.9-35.2); Mean Corpuscular Hemoglobin 29.4 pg (25.9-34.0); Mean Corpuscular Volume 87.4 fL (80.0-94.0); Mean Platelet Volume 9.2 fL (9.5-13.5); Monocytes Absolute Auto 0.8 10^3/uL (0.3-0.8); Monocytes Percent Auto 8.7 % (1.7-12.0); Neutrophils Absolute Auto 5.3 10^3/uL (1.4-6.5); Neutrophils Percent Auto 56.3 % (43.0-75.0); Platelet Count 240 10^3/uL (150-450); Red Blood Count 5.07 10^6/uL (4.70-6.10); White Blood Count 9.4 10^3/uL (4.0-11.0)
[2023-08-31] MEDS: NITROGLYCERIN 0.4 MG BOTTLE 0.400000000000000022 MG SL (17:41)
[2023-08-31] MEDS: ASPIRIN 81 MG TAB.CHEW 162 MG PO (17:41)
[2023-08-31 17:53] LABS: INR 0.99; Partial Thromboplastin Time 31.7 sec (22.3-36.2); Prothrombin Time 10.5 sec (9.0-11.6)
[2023-08-31 18:04] LABS: Alanine Aminotransferase 16 U/L (16-63); Albumin Globulin Ratio 0.9; Albumin Level 3.7 g/dL (3.4-5.0); Alkaline Phosphatase 165 U/L (46-116); Anion Gap 14.4; Aspartate Amino Transferase 16 U/L (15-37); BUN Creatinine Ratio 19.8; Bilirubin Total 0.4 mg/dL (0.2-1.0); Calcium 9.2 mg/dL (8.5-10.1); Chloride 102 mmol/L (98-107); Estimated GFR (African America >60 (>=60); Estimated GFR (Non-African Ame >60 (>=60); Globulin 4.2 g/dL; Glucose 167 mg/dL (74-106); Potassium 3.4 mmol/L (3.5-5.1); Sodium 136 mmol/L (136-145); Total Protein 7.9 g/dL (6.4-8.2); Troponin I High Sensitivity 16.9 pg/mL (4.0-76.1)
--- NOTE | 2023-08-31 22:48 | ECG_ITS ---
The [facility] Test Date: 2023-08-31 Pat Name: ESEQUIEL ORTIZ Department: Room: [facility] Gender: Male [employer]: : 1955 Requested By: Guy Leary Order Number: [id number] Reading MD: GABRIELA WHITE Measurements Intervals [place] Rate: 84 P: 55 [place]: 160 QRS: 35 QRSD: 84 T: 150 QT: 316 QTc: 357 Interpretive Statements 1100 Sinus rhythm 1575 with frequent ventricular premature complexes in a pattern of bigeminy [address] depression [address] & Twave abnormality 8305 Short QTc interval 9150 abnormal ECG Compared to ECG 08/31/2023 17:41:56 Ventricular premature complex(es) now present ST (T wave) deviation now present Myocardial infarct finding no longer present Electronically Signed On 09-02-2023 22:16:37 EDT by GABRIELA WHITE
--- OUTSIDE RECORDS SUMMARY | 2023-08-31 23:15 | XMS_ITS | CCD ---
Author Name Unknown Address [address] [place] [address] Organization [facility] Care Team Providers Care Bat Carrier Name Role Phone Tyson Jaquez Primary Care Physician [phone] PERALES Admitting Unavailable HOY [...] Medication Allergies] Propensity to adverse reactions (disorder) [facility] Repository Medications Current Medications Medication Drug Class(es) [...] Daily, # 90 cap(s), Refills(s) 3, [id number], cm, 12/05/21 8:20:00 EDT, Height/Length [...] procedure, # 2 cap(s), Refills(s) 0, Pharmacy: [facility] #[id number], 162, cm, 12/05/21 8:20:00 EDT, Height/Length [...] Unstable angina; Translations: [Atherosclerotic heart disease of [place] coronary artery with other forms of angina [...] Facility 36on 08-29-2023 36 Pt informed Normal [facility] Orders Onlyon 08-01-2023 Orders Only [id number] Gui Ortiz Sr. 1955 M Date Provider Department Center 08/01/2023 MAYELIN HAMMONDS Family History Family history unknown: Yes Normal [facility] Documentationon 07-30-2023 Documentation [id number] Gui Ortiz Sr. 1955 M Date Provider Department Center 07/30/2023 MAYELIN HAMMONDS Inocenciogrzegorz Marie Family History Family history unknown: Yes Normal [facility] 37on 07-18-2023 37 Normal [facility] Follow-Upon 07-18-2023 Follow-Up Normal [facility] 30on 07-09-2023 30 Normal [facility] BASIC METABOLIC PANELon 06-18 Anion gap [Moles/Vol] 11 mmol/L Normal 7-20 [facility] Comment on above: Performed By: #### L [id number] ####[facility] ([facility])[address] [place] [address] Calcium [Mass/Vol] 9.0 mg/dL Normal 8.6-10.3 [facility] Comment on above: Performed By: #### L [id number] ####[facility] ([facility])[address] [place] [address] Chloride [Moles/Vol] 105 mmol/L Normal 98-107 [facility] Comment on above: Performed By: #### L [id number] ####[facility] ([facility])[address] [place] [address] CO2 [Moles/Vol] 22 mmol/L Normal 21-31 [facility] Comment on above: Performed By: #### L [id number] ####[facility] ([facility])[address] [place] [address] Creatinine [Mass/Vol] 0.89 mg/dL Normal 0.70-1.30 [facility] Comment on above: Performed By: #### L [id number] ####[facility] ([facility])[address] [place] [address] GLOMERULAR FILTRATION RATE ML/MIN/1.73 SQ M.PREDICTED 92.8 mL/min/1.73m*2 Normal >60.0 [facility] Comment on above: Result Comment: The [facility]???s estimated glomerular filtration rate (eGFR) will no [...] of individuals. Performed By: #### L [id number] ####[facility] ([facility])[address] [place] [address] Glucose [Mass/Vol] 102 mg/dL High 70-100 [facility] Comment on above: Performed By: #### L [id number] ####[facility] ([facility]ER)[address] [place] [address] Potassium [Moles/Vol] 3.5 mmol/L Normal 3.5-5.1 [facility] Comment on above: Performed By: #### L [id number] ####[facility] ([facility])[address] [place] [address] Sodium [Moles/Vol] 134 mmol/L Low 136-[address] [facility] Comment on above: Performed By: #### L [id number] ####[facility] ([facility])[address] [place] [address] Urea nitrogen [Mass/Vol] 16 mg/dL Normal 7-25 [facility] Comment on above: Performed By: #### L [id number] ####[facility] ([facility])[address] [place] [address] UREA NITROGEN/CREATININ E (MASS RATIO) IN SER/PLAS 18.0 Normal [facility] Comment on above: Performed By: #### L [id number] ####[facility] ([facility])[address] [place] [address] DSon 07-09-2023 DS [facility] Orders Onlyon 07-09-2023 Orders Only [id number] Gui Ortiz Sr. 1955 M Date Provider Department Center 07/09/2023 MAYELIN HAMMONDS [facility]. Family History Family history unknown: Yes [facility] 30on 07-08-2023 30 The patient is Moder ately Stable - Low risk of patient condition declining or worsening The patient's goals for the shift include comfort The clinical goals for the shift include vss Normal [facility] 30 Normal [facility] ANESon 07-08-2023 ANES [facility] ANTI-XA (HEPARIN LEVEL)on HEPARIN UNFRACTIONATED (U/ML) IN PPP BY CHROMOGENIC METHOD 0.39 IU/mL Normal 0.3-0.7 [facility] Comment on above: Order Comment: Check anti-Xa level every 6 hours while on heparin infusion, or per protocol. Result Comment: Newman roxaban and Apixaban will interfere with the anti Xa assay used to monitor UFH and LMWH. Performed By: #### L [id number] ####[facility] ([facility])[address] [place] [address] BASIC METABOLIC PANELon 06-18 Anion gap [Moles/Vol] 11 mmol/L Normal 7-20 [facility] Comment on above: Performed By: #### L [id number] ####[facility] ([facility])[address] [place] [address] Calcium [Mass/Vol] 10.0 mg/dL Normal 8.6-10.3 [facility] Comment on above: Performed By: #### L [id number] ####[facility] ([facility]ER)[address] [place] [address] Chloride [Moles/Vol] 105 mmol/L Normal 98-107 [facility] Comment on above: Performed By: #### L [id number] ####[facility] ([facility])[address] [place] [address] CO2 [Moles/Vol] 26 mmol/L Normal 21-31 [facility] Comment on above: Performed By: #### L [id number] ####[facility] ([facility]ER)[address] [place] [address] Creatinine [Mass/Vol] 1.02 mg/dL Normal 0.70-1.30 [facility] Comment on above: Performed By: #### L [id number] ####[facility] ([facility])[address] [place] [address] GLOMERULAR FILTRATION RATE ML/MIN/1.73 SQ M.PREDICTED 79.6 mL/min/1.73m*2 Normal >60.0 [facility] Comment on above: Result Comment: The [facility]???s estimated glomerular filtration rate (eGFR) will no [...] of individuals. Performed By: #### L [id number] ####[facility] ([facility])[address] [place] [address] Glucose [Mass/Vol] 112 mg/dL High 70-100 [facility] Comment on above: Performed By: #### L [id number] ####[facility] ([facility])[address] [place] [address] Potassium [Moles/Vol] 4.5 mmol/L Normal 3.5-5.1 [facility] Comment on above: Performed By: #### L [id number] ####[facility] ([facility])[address] [place] [address] Sodium [Moles/Vol] 137 mmol/L Normal 136-145 [facility] Comment on above: Performed By: #### L [id number] ####[facility] ([facility])[address] [place] [address] Urea nitrogen [Mass/Vol] 15 mg/dL Normal 7-25 [facility] Comment on above: Performed By: #### L [id number] ####[facility] ([facility])[address] [place] [address] UREA NITROGEN/CREATININ E (MASS RATIO) IN SER/PLAS 14.7 Normal [facility] Comment on above: Performed By: #### L [id number] ####[facility] ([facility])[address] [place] [address] CBCon 07-08-2023 Erythrocyte distribution width (RBC) [Ratio] 13.5 % Normal 11.5-15.0 [facility] Comment on above: Performed By: #### L [id number] ####[facility] ([facility])[address] [place] [address] ERYTHROCYTE MEAN CORPUSCULAR HEMOGLOBIN CONCENTRATION (G/DL) BY AUTOMATED 33.0 g/dL Normal 32.0-35.0 [facility] Comment on above: Performed By: #### L [id number] ####[facility] ([facility])[address] [place] [address] Hematocrit (Bld) [Volume fraction] 39.4 % Normal 39.0-55.0 [facility] Comment on above: Performed By: #### L [id number] ####[facility] ([facility])[address] [place] [address] Hemoglobin (Bld) [Mass/Vol] 13.0 g/dL Normal 13.0-17.0 [facility] Comment on above: Performed By: #### L [id number] ####[facility] ([facility])[address] [place] [address] MCH (RBC) [Entitic mass] 29.1 pg Normal 27.0-33.0 [facility] Comment on above: Performed By: #### L [id number] ####[facility] ([facility])[address] [place] [address] MCV (RBC) [Entitic vol] 88.3 fL Normal 82.0-98.0 [facility] Comment on above: Performed By: #### L [id number] ####[facility] ([facility])[address] [place] [address] PLATELETS (10*3/UL) IN BLOOD AUTOMATED COUNT 248 10*3/uL Normal 150-400 [facility] Comment on above: Performed By: #### L [id number] ####[facility] ([facility]ER)[address] [place] [address] RBC (Bld) [#/Vol] 4.46 10*6/uL Normal 4.20-5.70 [facility] Comment on above: Performed By: #### L [id number] ####[facility] ([facility])[address] [place] [address] WBC (Bld) [#/Vol] 7.02 10*3/uL Normal 4.00-10.60 [facility] Comment on above: Performed By: #### L [id number] ####[facility] ([facility])[address] [place] [address] HPon 07-08-2023 HP H&P reviewed. The pa tient was examined and there are changes to the H&P, specifically, the L radial pulse is absent as are the distal PT and DP pulses. Normal [facility] LIPID PANELon 07-08-2023 CHOL/HDL 2.6 mg/dL Normal [facility] Comment on above: Performed By: #### L [id number] ####[facility] ([facility])[address] [place] [address] Cholesterol [Mass/Vol] 105 mg/dL Low 120-200 [facility] Comment on above: Performed By: #### L [id number] ####[facility] ([facility])[address] [place] [address] Magnesium [Mass/Vol] 63 mg/dL Normal 40-149 [facility] Comment on above: Result Comment: TRIG LYCERIDE REFERENCE RANGE:20 YEARS AND OLDER CARDIOVASCULAR RISKLESS THAN 150 mg/dL LOW [id number] TO 199 mg/dL BORDERLINE [id number] mg/dL AND GREATER HIGH RISK Performed By: #### L [id number] ####[facility] ([facility])[address] [place] [address] Magnesium [Mass/Vol] 52 mg/dL Normal 0-160 [facility] Comment on above: Performed By: #### L [id number] ####[facility] ([facility]ER)[address] [place] [address] Magnesium [Mass/Vol] 40 mg/dL Normal 23-92 [facility] Comment on above: Performed By: #### L [id number] ####[facility] ([facility]ER)[address] [place] [address] NON HDL CHOL. (LDL+VLDL) 65 Normal [facility] Comment on above: Performed By: #### L [id number] ####[facility] ([facility])[address] [place] [address] TOTAL VLDL-C 13 mg/dL Normal 0-40 [facility] Comment on above: Performed By: #### L [id number] ####[facility] ([facility])[address] [place] [address] NURSNOTEon 07-08-2023 NURSNOTE Normal [facility] 30on 07-07-2023 30 Normal [facility] ANTI-XA (HEPARIN LEVEL)on HEPARIN UNFRACTIONATED (U/ML) IN PPP BY CHROMOGENIC METHOD 0.35 IU/mL Normal 0.3-0.7 [facility] Comment on above: Result Comment: Blanca roxaban and Apixaban will interfere with the anti Xa assay used to monitor UFH and LMWH. Performed By: #### L [id number] ####[facility] ([facility])[address] [place] [address] HEPARIN UNFRACTIONATED (U/ML) IN PPP BY CHROMOGENIC METHOD 0.35 IU/mL Normal 0.3-0.7 [facility] Comment on above: Order Comment: Check anti-Xa level every 6 hours while on heparin infusion, or per protocol. Result Comment: Blanca roxaban and Apixaban will interfere with the anti Xa assay used to monitor UFH and LMWH. Performed By: #### L [id number] ####[facility] ([facility])[address] [place] [address] BASIC METABOLIC PANELon 06-18 Anion gap [Moles/Vol] 12 mmol/L Normal 7-20 [facility] Comment on above: Performed By: #### L [id number] ####[facility] ([facility])[address] [place] [address] Calcium [Mass/Vol] 9.0 mg/dL Normal 8.6-10.3 [facility] Comment on above: Performed By: #### L [id number] ####[facility] ([facility])[address] [place] [address] Chloride [Moles/Vol] 106 mmol/L Normal 98-107 [facility] Comment on above: Performed By: #### L [id number] ####[facility] ([facility])[address] [place] [address] CO2 [Moles/Vol] 22 mmol/L Normal 21-31 [facility] Comment on above: Performed By: #### L [id number] ####[facility] ([facility])[address] [place] [address] Creatinine [Mass/Vol] 0.79 mg/dL Normal 0.70-1.30 [facility] Comment on above: Performed By: #### L [id number] ####[facility] ([facility])[address] [place] [address] GLOMERULAR FILTRATION RATE ML/MIN/1.73 SQ M.PREDICTED 96.2 mL/min/1.73m*2 Normal >60.0 [facility] Comment on above: Result Comment: The [facility]???s estimated glomerular filtration rate (eGFR) will no [...] of individuals. Performed By: #### L [id number] ####[facility] ([facility])[address] [place] [address] Glucose [Mass/Vol] 113 mg/dL High 70-100 [facility] Comment on above: Performed By: #### L [id number] ####[facility] ([facility])[address] [place] [address] Potassium [Moles/Vol] 3.6 mmol/L Normal 3.5-5.1 [facility] Comment on above: Performed By: #### L [id number] ####[facility] ([facility])[address] [place] [address] Sodium [Moles/Vol] 136 mmol/L Normal 136-145 [facility] Comment on above: Performed By: #### L [id number] ####[facility] ([facility])[address] [place] [address] Urea nitrogen [Mass/Vol] 16 mg/dL Normal 7-25 [facility] Comment on above: Performed By: #### L [id number] ####[facility] ([facility])[address] [place] [address] UREA NITROGEN/CREATININ E (MASS RATIO) IN SER/PLAS 20.3 [facility] Comment on above: Performed By: #### L [id number] ####[facility] ([facility])[address] [place] [address] 30on 07-06-2023 30 The patient is Moder ately Stable - Low risk of patient condition declining or worsening The patient's goals for the shift include comfort The clinical goals for the shift include VSS [facility] 30 Normal [facility] ANTI-XA (HEPARIN LEVEL)on HEPARIN UNFRACTIONATED (U/ML) IN PPP BY CHROMOGENIC METHOD 0.34 IU/mL Normal 0.3-0.7 [facility] Comment on above: Order Comment: Check anti-Xa level every 6 hours while on heparin infusion, or per protocol. Result Comment: Newman roxaban and Apixaban will interfere with the anti Xa assay used to monitor UFH and LMWH. Performed By: #### L [id number] ####[facility] ([facility])[address] [place] [address] HEPARIN UNFRACTIONATED (U/ML) IN PPP BY CHROMOGENIC METHOD 0.22 IU/mL Low 0.3-0.7 [facility] Comment on above: Order Comment: Check anti-Xa level every 6 hours while on heparin infusion, or per protocol. Result Comment: Blanca roxaban and Apixaban will interfere with the anti Xa assay used to monitor UFH and LMWH. Performed By: #### L [id number] ####[facility] ([facility])[address] [place] [address] HEPARIN UNFRACTIONATED (U/ML) IN PPP BY CHROMOGENIC METHOD 0.16 IU/mL Invalid Interpretation Code 0.3-0.7 [facility] Comment on above: Order Comment: Check anti-Xa level every 6 hours while on heparin infusion, or per protocol. Result Comment: Blanca roxaban and Apixaban will interfere with the anti Xa assay used to monitor UFH and LMWH. Performed By: #### L [id number] ####[facility] ([facility])[address] [place] [address] HEPARIN UNFRACTIONATED (U/ML) IN PPP BY CHROMOGENIC METHOD 0.17 IU/mL Low 0.3-0.7 [facility] Comment on above: Order Comment: Check anti-Xa level every 6 hours while on heparin infusion, or per protocol. Result Comment: Newman roxaban and Apixaban will interfere with the anti Xa assay used to monitor UFH and LMWH. Performed By: #### L [id number] ####[facility] ([facility])[address] [place] [address] CBCon 07-06-2023 Erythrocyte distribution width (RBC) [Ratio] 13.7 % Normal 11.5-15.0 [facility] Comment on above: Performed By: #### L [id number] ####[facility] ([facility])[address] [place] [address] ERYTHROCYTE MEAN CORPUSCULAR HEMOGLOBIN CONCENTRATION (G/DL) BY AUTOMATED 34.3 g/dL Normal 32.0-35.0 [facility] Comment on above: Performed By: #### L [id number] ####[facility] ([facility])[address] [place] [address] Hematocrit (Bld) [Volume fraction] 38.8 % Low 39.0-55.0 [facility] Comment on above: Performed By: #### L [id number] ####[facility] ([facility])[address] [place] [address] Hemoglobin (Bld) [Mass/Vol] 13.3 g/dL Normal 13.0-17.0 [facility] Comment on above: Performed By: #### L [id number] ####[facility] ([facility])[address] [place] [address] MCH (RBC) [Entitic mass] 29.6 pg Normal 27.0-33.0 [facility] Comment on above: Performed By: #### L [id number] ####[facility] ([facility])[address] [place] [address] MCV (RBC) [Entitic vol] 86.4 fL Normal 82.0-98.0 [facility] Comment on above: Performed By: #### L [id number] ####[facility] ([facility])[address] [place] [address] PLATELETS (10*3/UL) IN BLOOD AUTOMATED COUNT 242 10*3/uL Normal 150-400 [facility] Comment on above: Performed By: #### L [id number] ####[facility] ([facility])[address] [place] [address] RBC (Bld) [#/Vol] 4.49 10*6/uL Normal 4.20-5.70 [facility] Comment on above: Performed By: #### L [id number] ####[facility] ([facility])[address] [place] [address] WBC (Bld) [#/Vol] 6.59 10*3/uL Normal 4.00-10.60 [facility] Comment on above: Performed By: #### L [id number] ####[facility] ([facility])[address] [place] [address] CONSULTon 07-06-2023 CONSULT Normal [facility] HPon 07-06-2023 HP Normal [facility] TROPONIN Ion 07-06-2023 Troponin I.cardiac [Mass/Vol] 0.03 ng/mL Normal 0.00-0.04 [facility] Comment on above: Performed By: #### L [id number] ####[facility] ([facility])[address] [place] [address] Troponin I.cardiac [Mass/Vol] 0.05 ng/mL High 0.00-0.04 [facility] Comment on above: Performed By: #### L [id number] ####[facility] ([facility])[address] [place] [address] Troponin I.cardiac [Mass/Vol] 0.06 ng/mL High 0.00-0.04 [facility] Comment on above: Performed By: #### L [id number] ####[facility] ([facility])[address] [place] [address] Troponin I.cardiac [Mass/Vol] 0.12 ng/mL Critically high 0.00-0.04 [facility] Comment on above: Result Comment: M-OR EVIOUS CRITICAL RESULTPrevious result verified on 07/05/20235 on specimen/case [id number] called with component Troponin I for procedure Troponin I with value 0.23 ng/mL. Performed By: #### L [id number] ####[facility] ([facility])[address] [place] [address] 30on 07-05-2023 30 Normal [facility] APTTon 07-05-2023 ACTIVATED PARTIAL THROMBOPLASTIN TIME IN PPP BY COAGULATION ASSAY 36.3 Seconds High 25.0-35.0 [facility] Comment on above: Order Comment: Basel ine aPTT before initiating heparin infusion. Result Comment: Clin ical significance of the APTT is questionable in the presence of heparin. Performed By: #### L [id number] ####[facility] ([facility])[address] [place] [address] B-TYPE NATRIURETIC PEPTIDEon 07-05-2023 Natriuretic peptide B (Bld) [Mass/Vol] 346 pg/mL High 0-100 [facility] Comment on above: Performed By: #### L [id number] ####[facility] ([facility])[address] [place] [address] CBC WITH AUTO DIFFERENTIALon 07-05-2023 Basophils (Bld) [#/Vol] 0.03 10*3/uL Normal 0.00-0.20 [facility] Comment on above: Performed By: #### L [id number] ####[facility] ([facility])[address] [place] [address] Basophils/100 WBC (Bld) 0.5 % Normal 0.0-1.0 [facility] Comment on above: Performed By: #### L [id number] ####[facility] ([facility])[address] [place] [address] Eosinophils (Bld) [#/Vol] 0.15 10*3/uL Normal 0.00-0.50 [facility] Comment on above: Performed By: #### L [id number] ####[facility] ([facility])[address] [place] [address] Eosinophils/100 WBC (Bld) 2.3 % Normal 0.0-6.0 [facility] Comment on above: Performed By: #### L [id number] ####[facility] ([facility])[address] [place] [address] Erythrocyte distribution width (RBC) [Ratio] 13.6 % Normal 11.5-15.0 [facility] Comment on above: Performed By: #### L [id number] ####[facility] ([facility])[address] [place] [address] ERYTHROCYTE MEAN CORPUSCULAR HEMOGLOBIN CONCENTRATION (G/DL) BY AUTOMATED 34.1 g/dL Normal 32.0-35.0 [facility] Comment on above: Performed By: #### L [id number] ####[facility] ([facility])[address] [place] [address] Hematocrit (Bld) [Volume fraction] 41.7 % Normal 39.0-55.0 [facility] Comment on above: Performed By: #### L [id number] ####[facility] ([facility])[address] [place] [address] Hemoglobin (Bld) [Mass/Vol] 14.2 g/dL Normal 13.0-17.0 [facility] Comment on above: Performed By: #### L [id number] ####[facility] ([facility])[address] [place] [address] Immature granulocytes (Bld) [#/Vol] 0.01 10*3/uL Normal 0.00-0.20 [facility] Comment on above: Performed By: #### L [id number] ####[facility] ([facility])[address] [place] [address] Immature granulocytes/100 WBC (Bld) 0.2 % Normal 0.0-1.0 [facility] Comment on above: Performed By: #### L [id number] ####[facility] ([facility])[address] [place] [address] Lymphocytes (Bld) [#/Vol] 2.12 10*3/uL Normal 1.20-4.00 [facility] Comment on above: Performed By: #### L [id number] ####[facility] ([facility])[address] [place] [address] Lymphocytes/100 WBC (Bld) 32.7 % Normal 20.0-45.0 [facility] Comment on above: Performed By: #### L [id number] ####[facility] ([facility])[address] [place] [address] MCH (RBC) [Entitic mass] 29.3 pg Normal 27.0-33.0 [facility] [place] Comment on above: Performed By: #### L [id number] ####[facility] (BEAKER)[address] [place] [address] MCV (RBC) [Entitic vol] 86.2 fL Normal 82.0-98.0 [facility] [place] Comment on above: Performed By: #### L [id number] ####[facility] (BEAKER)[address] [place] [address] Monocytes (Bld) [#/Vol] 0.64 10*3/uL Normal 0.10-1.00 [facility] [place] Comment on above: Performed By: #### L [id number] ####[facility] (BEAKER)[address] [place] [address] Monocytes/100 WBC (Bld) 9.9 % Normal 5.0-12.0 [facility] [place] Comment on above: Performed By: #### L [id number] ####[facility] ([facility]AKER)[address] [place] [address] Neutrophils (Bld) [#/Vol] 3.54 10*3/uL Normal 1.60-7.60 [facility] [place] Comment on above: Performed By: #### L [id number] ####[facility] ([facility])[address] [place] [address] Neutrophils/100 WBC (Bld) 54.4 % Normal 40.0-72.0 [facility] [place] Comment on above: Performed By: #### L [id number] ####[facility] ([facility])[address] [place] [address] NRBC (PER 100 WBCS) BY AUTOMATED COUNT 0.0 % Normal 0 [facility] [place] Comment on above: Performed By: #### L [id number] ####[facility] ([facility])[address] [place] [address] PLATELETS (10*3/UL) IN BLOOD AUTOMATED COUNT 277 10*3/uL Normal 150-400 [facility] [place] Comment on above: Performed By: #### L [id number] ####[facility] (BEAKER)[address] [place] [address] RBC (Bld) [#/Vol] 4.84 10*6/uL Normal 4.20-5.70 [facility] Comment on above: Performed By: #### L [id number] ####[facility] (BEAKER)[address] [place] [address] WBC (Bld) [#/Vol] 6.49 10*3/uL Normal 4.00-10.60 [facility] Comment on above: Performed By: #### L [id number] ####[facility] (BEAKER)[address] [place] [address] COMPREHENSIVE METABOLIC PANE Roddy 07-05-2023 Albumin [Mass/Vol] 3.9 g/dL Normal 3.5-5.7 [facility] Comment on above: Performed By: #### L [id number] ####[facility] ([facility])[address] [place] [address] ALP [Catalytic activity/Vol] 127 U/L High 34-104 [facility] [place] Comment on above: Performed By: #### L [id number] ####[facility] ([facility])[address] [place] [address] ALT [Catalytic activity/Vol] 10 U/L Normal 7-52 [facility] [place] Comment on above: Performed By: #### L [id number] ####[facility] ([facility])[address] [place] [address] Anion gap [Moles/Vol] 14 mmol/L Normal 7-20 [facility] [place] Comment on above: Performed By: #### L [id number] ####[facility] ([facility])[address] [place] [address] AST [Catalytic activity/Vol] 15 U/L Normal 13-39 [facility] [place] Comment on above: Performed By: #### L [id number] ####[facility] ([facility])[address] [place] [address] Bilirubin [Mass/Vol] 0.4 mg/dL Normal 0.3-1.0 [facility] [place] Comment on above: Performed By: #### L [id number] ####[facility] ([facility])[address] [place] [address] Calcium [Mass/Vol] 9.4 mg/dL Normal 8.6-10.3 [facility] Comment on above: Performed By: #### L [id number] ####[facility] ([facility])[address] [place] [address] Chloride [Moles/Vol] 106 mmol/L Normal 98-107 [facility] [place] Comment on above: Performed By: #### L [id number] ####[facility] ([facility])[address] [place] [address] CO2 [Moles/Vol] 23 mmol/L Normal 21-31 [facility] Comment on above: Performed By: #### L [id number] ####[facility] ([facility])[address] [place] [address] Creatinine [Mass/Vol] 0.78 mg/dL Normal 0.70-1.30 [facility] [place] Comment on above: Performed By: #### L [id number] ####[facility] ([facility])[address] [place] [address] GLOMERULAR FILTRATION RATE ML/MIN/1.73 SQ M.PREDICTED 96.5 mL/min/1.73m*2 Normal >60.0 [facility] [place] Comment on above: Result Comment: The [facility] [place]???s estimated glomerular filtration rate (eGFR) will no [...] of individuals. Performed By: #### L [id number] ####[facility] ([facility])[address] [place] [address] Glucose [Mass/Vol] 114 mg/dL High 70-100 [facility] Comment on above: Performed By: #### L [id number] ####[facility] ([facility])[address] [place] [address] Potassium [Moles/Vol] 3.5 mmol/L Normal 3.5-5.1 [facility] [place] Comment on above: Performed By: #### L [id number] ####[facility] ([facility])[address] [place] [address] Protein [Mass/Vol] 7.5 g/dL Normal 6.0-8.3 [facility] Comment on above: Performed By: #### L [id number] ####[facility] ([facility])[address] [place] [address] Sodium [Moles/Vol] 139 mmol/L Normal 136-145 [facility] Comment on above: Performed By: #### L [id number] ####[facility] ([facility])[address] [place] [address] Urea nitrogen [Mass/Vol] 13 mg/dL Normal 7-25 [facility] [place] Comment on above: Performed By: #### L [id number] ####[facility] ([facility])[address] [place] [address] UREA NITROGEN/CREATININ E (MASS RATIO) IN SER/PLAS 16.7 Normal [facility] [place] Comment on above: Performed By: #### L [id number] ####[facility] ([facility])[address] [place] [address] HPon 07-05-2023 HP Normal [facility] [place] MAGNESIUMon 07-05-2023 Magnesium [Mass/Vol] 1.8 mg/dL Low 1.9-2.7 [facility] [place] Comment on above: Performed By: #### L [id number] ####[facility] ([facility])[address] [place] [address] NURSNOTEon 07-05-2023 NURSNOTE Lead RN called admit amalia MONTES DE OCA, no new orders as of this time. [employer] verified diet order, pt placing order for dinner. Will continue to monitor Normal [facility] [place] PHOSPHORUSon 07-05-2023 Magnesium [Mass/Vol] 3.5 mg/dL Normal 2.5-5.0 [facility] [place] Comment on above: Performed By: #### L [id number] ####[facility] ([facility])[address] [place] [address] POCT GLUCOSE METER UNSOLICIT ED RESULTSon 07-05-2023 Glucose [Mass/Vol] 163 mg/dL High 70-105 [facility] Comment on above: Order Comment: Waive d Testing in the ED is performed under the ED CLIA certificate #[id number]. Result Comment: [email or web address] [email or web address] Performed By: #### L [id number] ####[facility] ([facility] [place] [address] PROTIME-INRon 07-05-2023 INR IN PPP BY COAGULATION ASSAY 1.07 Normal 0.90-1.10 [facility] [place] Comment on above: Result Comment: ACCC P [...] CHEST 1995;[id number]. Performed By: #### L [id number] ####[facility] ([employer])[address] [place] [address] PROTHROMBIN TIME (PT) IN PPP BY COAGULATION ASSAY 13.9 Seconds Normal 12.3-14.8 [facility] [place] Comment on above: Performed By: #### L [id number] ####[facility] ([facility])[address] [place] [address] TROPONIN Ion 07-05-2023 Troponin I.cardiac [Mass/Vol] 0.23 ng/mL Critically high 0.00-0.04 [facility] [place] Comment on above: Result Comment: M-CR ITICAL RESULT(S) REVIEWED, CALLED TO AND READ BACK BY MARY SIMMONS RN AT 2224M-TROPONIN INITIAL CRITICAL HIGH; RESPUN AND RETESTED Performed By: #### L [id number] ####[facility] (BEAKER)[address] [place] [address] Orders Onlyon 07-02-2023 Orders Only [id number] Gui Ortiz Sr. 1955 M Date Provider Department Center 07/02/2023 ALLEN HUA DCC ONC DCC Family History Family history unknown: Yes Normal [facility] [place] 29on 05-16-2023 29 Addended by: PASCUAL VELARDE on: 05/16/2023 03:51 PM Modules accepted: Orders Normal [facility] [place] 29 Addended by: PASCUAL VELARDE on: 05/16/2023 03:50 PM Modules accepted: Orders Normal [facility] [place] Follow-Upon 05-16-2023 Follow-Up Normal [facility] [place] 36on 05-03-2023 36 Normal [facility] [place] Telephoneon 05-03-2023 Telephone [id number] Gui Ortiz 1955 M Date Provider Department Center 05/03/2023 113-JIGAR, HVCVASENDO [facility] Family History Family history unknown: Yes Normal [facility] [place] 36on 05-02-2023 36 Normal [facility] [place] 30on 05-01-2023 30 Normal [facility] [place] 30 Normal [facility] [place] BASIC METABOLIC PANELon 04-17 Anion gap [Moles/Vol] 11 mmol/L Normal 7-20 [facility] [place] Comment on above: Performed By: #### L [id number] ####[facility] (BEAKER)[address] [place] [address] Calcium [Mass/Vol] 8.4 mg/dL Low 8.6-10.3 [facility] Comment on above: Performed By: #### L [id number] ####[facility] (BEAKER)[address] [place] [address] Chloride [Moles/Vol] 109 mmol/L High 98-107 [facility] [place] Comment on above: Performed By: #### L [id number] ####[facility] (BEAKER)[address] [place] [address] CO2 [Moles/Vol] 22 mmol/L Normal 21-31 [facility] Comment on above: Performed By: #### L [id number] ####[facility] (BEAKER)[address] [place] [address] Creatinine [Mass/Vol] 0.62 mg/dL Low 0.70-1.30 [facility] [place] Comment on above: Performed By: #### L [id number] ####[facility] ([facility])[address] [place] [address] GLOMERULAR FILTRATION RATE ML/MIN/1.73 SQ M.PREDICTED 103.5 mL/min/1.73m*2 Normal >60.0 [facility] [place] Comment on above: Result Comment: The [facility] [place]???s estimated glomerular filtration rate (eGFR) will no [...] of individuals. Performed By: #### L [id number] ####[facility] (BEAKER)[address] [place] [address] Glucose [Mass/Vol] 98 mg/dL Normal 70-100 [facility] Comment on above: Performed By: #### L [id number] ####[facility] (BEAKER)[address] [place] [address] Potassium [Moles/Vol] 3.7 mmol/L Normal 3.5-5.1 [facility] [place] Comment on above: Performed By: #### L [id number] ####[facility] (BEAKER)[address] [place] [address] Sodium [Moles/Vol] 138 mmol/L Normal 136-145 [facility] Comment on above: Performed By: #### L [id number] ####[facility] ([facility])[address] [place] [address] Urea nitrogen [Mass/Vol] 12 mg/dL Normal 7-25 [facility] [place] Comment on above: Performed By: #### L [id number] ####[facility] ([facility])[address] [place] [address] UREA NITROGEN/CREATININ E (MASS RATIO) IN SER/PLAS 19.4 Normal [facility] [place] Comment on above: Performed By: #### L [id number] ####[facility] ([facility])[address] [place] [address] CBCon 05-01-2023 Erythrocyte distribution width (RBC) [Ratio] 14.5 % Normal 11.5-15.0 [facility] [place] Comment on above: Performed By: #### L [id number] ####[facility] ([facility])[address] [place] [address] ERYTHROCYTE MEAN CORPUSCULAR HEMOGLOBIN CONCENTRATION (G/DL) BY AUTOMATED 33.2 g/dL Normal 32.0-35.0 [facility] [place] Comment on above: Performed By: #### L [id number] ####[facility] ([facility])[address] [place] [address] Hematocrit (Bld) [Volume fraction] 27.4 % Low 39.0-55.0 [facility] [place] Comment on above: Performed By: #### L [id number] ####[facility] ([facility])[address] [place] [address] Hemoglobin (Bld) [Mass/Vol] 9.1 g/dL Low 13.0-17.0 [facility] [place] Comment on above: Performed By: #### L [id number] ####[facility] ([facility])[address] [place] [address] MCH (RBC) [Entitic mass] 30.7 pg Normal 27.0-33.0 [facility] [place] Comment on above: Performed By: #### L [id number] ####[facility] ([facility])[address] [place] [address] MCV (RBC) [Entitic vol] 92.6 fL Normal 82.0-98.0 [facility] [place] Comment on above: Performed By: #### L [id number] ####[facility] ([facility])[address] [place] [address] PLATELETS (10*3/UL) IN BLOOD AUTOMATED COUNT 276 10*3/uL Normal 150-400 [facility] [place] Comment on above: Performed By: #### L [id number] ####[facility] ([facility])[address] [place] [address] RBC (Bld) [#/Vol] 2.96 10*6/uL Low 4.20-5.70 [facility] Comment on above: Performed By: #### L [id number] ####[facility] ([facility])[address] [place] [address] WBC (Bld) [#/Vol] 6.87 10*3/uL Normal 4.00-10.60 [facility] Comment on above: Performed By: #### L [id number] ####[facility] ([facility])[address] [place] [address] DSon 05-01-2023 DS Normal [facility] [place] MAGNESIUMon 05-01-2023 Magnesium [Mass/Vol] 1.7 mg/dL Low 1.9-2.7 [facility] [place] Comment on above: Performed By: #### L [id number] ####[facility] ([facility])[address] [place] [address] NURSNOTEon 05-01-2023 NURSNOTE Normal [facility] [place] NURSNOTE Normal [facility] [place] PHOSPHORUSon 05-01-2023 Magnesium [Mass/Vol] 3.8 mg/dL Normal 2.5-5.0 [facility] [place] Comment on above: Performed By: #### L [id number] ####[facility] ([facility])[address] [place] [address] POCT GLUCOSE METER UNSOLICIT ED RESULTSon 05-01-2023 Glucose [Mass/Vol] 116 mg/dL High 70-105 [facility] Comment on above: Order Comment: Waive d Testing in the ED is performed under the ED CLIA certificate #[id number]. Result Comment: [email or web address] Performed By: #### L [id number] ####[facility] ([facility])[address] [place] [address] Glucose [Mass/Vol] 115 mg/dL High 70-105 [facility] Comment on above: Order Comment: Waive d Testing in the ED is performed under the ED CLIA certificate #[id number]. Result Comment: [email or web address] Performed By: #### L [id number] ####[facility] ([facility])[address] [place] [address] 30on 04-30-2023 30 Normal [facility] [place] 30 Normal [facility] [place] 30 Normal [facility] [place] BASIC METABOLIC PANELon 04-17 Anion gap [Moles/Vol] 12 mmol/L Normal 7-20 [facility] [place] Comment on above: Performed By: #### L [id number] ####[facility] (BEAKER)[address] [place] [address] Calcium [Mass/Vol] 8.3 mg/dL Low 8.6-10.3 [facility] Comment on above: Performed By: #### L [id number] ####[facility] (BEAKER)[address] [place] [address] Chloride [Moles/Vol] 109 mmol/L High 98-107 [facility] [place] Comment on above: Performed By: #### L [id number] ####[facility] (BEAKER)[address] [place] [address] CO2 [Moles/Vol] 21 mmol/L Normal 21-31 [facility] Comment on above: Performed By: #### L [id number] ####[facility] (BEAKER)[address] [place] [address] Creatinine [Mass/Vol] 0.70 mg/dL Normal 0.70-1.30 [facility] [place] Comment on above: Performed By: #### L [id number] ####[facility] ([facility])[address] [place] [address] GLOMERULAR FILTRATION RATE ML/MIN/1.73 SQ M.PREDICTED 99.7 mL/min/1.73m*2 Normal >60.0 [facility] [place] Comment on above: Result Comment: The [facility] [place]???s estimated glomerular filtration rate (eGFR) will no [...] of individuals. Performed By: #### L [id number] ####[facility] ([facility])[address] [place] [address] Glucose [Mass/Vol] 104 mg/dL High 70-100 [facility] Comment on above: Performed By: #### L [id number] ####[facility] ([facility])[address] [place] [address] Potassium [Moles/Vol] 3.7 mmol/L Normal 3.5-5.1 [facility] [place] Comment on above: Performed By: #### L [id number] ####[facility] ([facility])[address] [place] [address] Sodium [Moles/Vol] 138 mmol/L Normal 136-145 [facility] Comment on above: Performed By: #### L [id number] ####[facility] ([facility])[address] [place] [address] Urea nitrogen [Mass/Vol] 15 mg/dL Normal 7-25 [facility] [place] Comment on above: Performed By: #### L [id number] ####[facility] ([facility])[address] [place] [address] UREA NITROGEN/CREATININ E (MASS RATIO) IN SER/PLAS 21.4 Normal [facility] [place] Comment on above: Performed By: #### L [id number] ####[facility] ([facility])[address] [place] [address] CBCon 04-30-2023 Erythrocyte distribution width (RBC) [Ratio] 13.8 % Normal 11.5-15.0 [facility] [place] Comment on above: Performed By: #### L [id number] ####[facility] ([facility])[address] [place] [address] ERYTHROCYTE MEAN CORPUSCULAR HEMOGLOBIN CONCENTRATION (G/DL) BY AUTOMATED 32.6 g/dL Normal 32.0-35.0 [facility] [place] Comment on above: Performed By: #### L [id number] ####[facility] ([facility])[address] [place] [address] Hematocrit (Bld) [Volume fraction] 27.3 % Low 39.0-55.0 [facility] [place] Comment on above: Performed By: #### L [id number] ####[facility] ([facility])[address] [place] [address] Hemoglobin (Bld) [Mass/Vol] 8.9 g/dL Low 13.0-17.0 [facility] [place] Comment on above: Performed By: #### L [id number] ####[facility] ([facility])[address] [place] [address] MCH (RBC) [Entitic mass] 30.4 pg Normal 27.0-33.0 [facility] [place] Comment on above: Performed By: #### L [id number] ####[facility] ([facility])[address] [place] [address] MCV (RBC) [Entitic vol] 93.2 fL Normal 82.0-98.0 [facility] [place] Comment on above: Performed By: #### L [id number] ####[facility] ([facility])[address] [place] [address] PLATELETS (10*3/UL) IN BLOOD AUTOMATED COUNT 219 10*3/uL Normal 150-400 [facility] [place] Comment on above: Performed By: #### L [id number] ####[facility] ([facility])[address] [place] [address] RBC (Bld) [#/Vol] 2.93 10*6/uL Low 4.20-5.70 [facility] Comment on above: Performed By: #### L [id number] ####[facility] ([facility])[address] [place] [address] WBC (Bld) [#/Vol] 6.80 10*3/uL Normal 4.00-10.60 [facility] Comment on above: Performed By: #### L [id number] ####[facility] ([facility])[address] [place] [address] MAGNESIUMon 04-30-2023 Magnesium [Mass/Vol] 1.7 mg/dL Low 1.9-2.7 [facility] [place] Comment on above: Performed By: #### L [id number] ####[facility] ([facility])[address] [place] [address] PHOSPHORUSon 04-30-2023 Magnesium [Mass/Vol] 4.0 mg/dL Normal 2.5-5.0 [facility] [place] Comment on above: Performed By: #### L [id number] ####[facility] ([facility])[address] [place] [address] POCT GLUCOSE METER UNSOLICIT ED RESULTSon 04-30-2023 Glucose [Mass/Vol] 123 mg/dL High 70-105 [facility] Comment on above: Order Comment: Waive d Testing in the ED is performed under the ED CLIA certificate #[id number]. Result Comment: [email or web address] [email or web address] Performed By: #### L [id number] ####[facility] ([facility])[address] [place] [address] Glucose [Mass/Vol] 138 mg/dL High 70-105 [facility] Comment on above: Order Comment: Waive d Testing in the ED is performed under the ED CLIA certificate #[id number]. Result Comment: [email or web address] Performed By: #### L [id number] ####[facility] (BEAKER)[address] [place] [address] 30on 04-29-2023 30 Normal [facility] 30 Normal [facility] 30 Normal [facility] BASIC METABOLIC PANELon 04-17 Anion gap [Moles/Vol] 11 mmol/L Normal 7-20 [facility] [place] Comment on above: Performed By: #### L [id number] ####[facility] ([facility])[address] [place] [address] Calcium [Mass/Vol] 8.4 mg/dL Low 8.6-10.3 [facility] Comment on above: Performed By: #### L [id number] ####[facility] ([facility])[address] [place] [address] Chloride [Moles/Vol] 109 mmol/L High 98-107 [facility] [place] Comment on above: Performed By: #### L [id number] ####[facility] ([facility])[address] [place] [address] CO2 [Moles/Vol] 20 mmol/L Low 21-31 [facility] Comment on above: Performed By: #### L [id number] ####[facility] ([facility])[address] [place] [address] Creatinine [Mass/Vol] 0.68 mg/dL Low 0.70-1.30 [facility] Comment on above: Performed By: #### L [id number] ####[facility] ([facility])[address] [place] [address] GLOMERULAR FILTRATION RATE ML/MIN/1.73 SQ M.PREDICTED 100.6 mL/min/1.73m*2 Normal >60.0 [facility] [place] Comment on above: Result Comment: The [facility]???s estimated glomerular filtration rate (eGFR) will no [...] of individuals. Performed By: #### L [id number] ####[facility] ([facility])[address] [place] [address] Glucose [Mass/Vol] 100 mg/dL Normal 70-100 [facility] Comment on above: Performed By: #### L [id number] ####[facility] ([facility])[address] [place] [address] Potassium [Moles/Vol] 3.8 mmol/L Normal 3.5-5.1 [facility] Comment on above: Performed By: #### L [id number] ####[facility] ([facility])[address] [place] [address] Sodium [Moles/Vol] 136 mmol/L Normal 136-145 [facility] Comment on above: Performed By: #### L [id number] ####[facility] ([facility])[address] [place] [address] Urea nitrogen [Mass/Vol] 18 mg/dL Normal 7-25 [facility] Comment on above: Performed By: #### L [id number] ####[facility] ([facility])[address] [place] [address] UREA NITROGEN/CREATININ E (MASS RATIO) IN SER/PLAS 26.5 Normal [facility] Comment on above: Performed By: #### L [id number] ####[facility] ([facility])[address] [place] [address] CBCon 04-29-2023 Erythrocyte distribution width (RBC) [Ratio] 13.6 % Normal 11.5-15.0 [facility] Comment on above: Performed By: #### L [id number] ####[facility] ([facility])[address] [place] [address] ERYTHROCYTE MEAN CORPUSCULAR HEMOGLOBIN CONCENTRATION (G/DL) BY AUTOMATED 33.7 g/dL Normal 32.0-35.0 [facility] Comment on above: Performed By: #### L [id number] ####[facility] ([facility])[address] [place] [address] Hematocrit (Bld) [Volume fraction] 27.0 % Low 39.0-55.0 [facility] Comment on above: Performed By: #### L [id number] ####[facility] CENTER)[address] [place] [address] Hemoglobin (Bld) [Mass/Vol] 9.1 g/dL Low 13.0-17.0 [facility] Comment on above: Performed By: #### L [id number] ####[facility] ([facility])[address] [place] [address] MCH (RBC) [Entitic mass] 30.4 pg Normal 27.0-33.0 [facility] Comment on above: Performed By: #### L [id number] ####[facility] ([facility])[address] [place] [address] MCV (RBC) [Entitic vol] 90.3 fL Normal 82.0-98.0 [facility] Comment on above: Performed By: #### L [id number] ####[facility] ([facility])[address] [place] [address] PLATELETS (10*3/UL) IN BLOOD AUTOMATED COUNT 188 10*3/uL Normal 150-400 [facility] Comment on above: Performed By: #### L [id number] ####[facility] ([facility])[address] [place] [address] RBC (Bld) [#/Vol] 2.99 10*6/uL Low 4.20-5.70 [facility] Comment on above: Performed By: #### L [id number] ####[facility] ([facility])[address] [place] [address] WBC (Bld) [#/Vol] 7.24 10*3/uL Normal 4.00-10.60 [facility] Comment on above: Performed By: #### L [id number] ####[facility] ([facility])[address] [place] [address] CONSULTon 04-29-2023 CONSULT Normal [facility] MAGNESIUMon 04-29-2023 Magnesium [Mass/Vol] 1.7 mg/dL Low 1.9-2.7 [facility] Comment on above: Performed By: #### L [id number] ####[facility] ([facility])[address] [place] [address] PHOSPHORUSon 04-29-2023 Magnesium [Mass/Vol] 3.9 mg/dL Normal 2.5-5.0 [facility] Comment on above: Performed By: #### L [id number] ####[facility] ([facility])[address] [place] [address] POCT GLUCOSE METER UNSOLICIT ED RESULTSon 04-29-2023 Glucose [Mass/Vol] 111 mg/dL High 70-105 [facility] Comment on above: Order Comment: Waive d Testing in the ED is performed under the ED CLIA certificate #[id number]. Result Comment: [email or web address] [email or web address] Performed By: #### L [id number] ####[facility] ([facility])[address] [place] [address] Glucose [Mass/Vol] 133 mg/dL High 70-105 [facility] Comment on above: Order Comment: Waive d Testing in the ED is performed under the ED CLIA certificate #[id number]. Result Comment: [email or web address] [email or web address] Performed By: #### L [id number] ####[facility] ([facility])[address] [place] [address] Glucose [Mass/Vol] 128 mg/dL High 70-105 [facility] Comment on above: Order Comment: Waive d Testing in the ED is performed under the ED CLIA certificate #[id number]. Result Comment: [email or web address] Performed By: #### L [id number] ####[facility] ([facility])[address] [place] [address] 30on 04-28-2023 30 Normal [facility] BASIC METABOLIC PANELon 04-17 Anion gap [Moles/Vol] 10 mmol/L Normal 7-20 [facility] Comment on above: Performed By: #### L [id number] ####[facility] ([facility])[address] [place] [address] Calcium [Mass/Vol] 8.1 mg/dL Low 8.6-10.3 [facility] Comment on above: Performed By: #### L [id number] ####[facility] ([facility])[address] [place] [address] Chloride [Moles/Vol] 109 mmol/L High 98-107 [facility] Comment on above: Performed By: #### L [id number] ####[facility] ([facility])[address] [place] [address] CO2 [Moles/Vol] 22 mmol/L Normal 21-31 [facility] Comment on above: Performed By: #### L [id number] ####[facility] ([facility])[address] [place] [address] Creatinine [Mass/Vol] 0.62 mg/dL Low 0.70-1.30 [facility] Comment on above: Performed By: #### L [id number] ####[facility] ([facility])[address] [place] [address] GLOMERULAR FILTRATION RATE ML/MIN/1.73 SQ M.PREDICTED 103.5 mL/min/1.73m*2 Normal >60.0 [facility] Comment on above: Result Comment: The [facility]???s estimated glomerular filtration rate (eGFR) will no [...] of individuals. Performed By: #### L [id number] ####[facility] ([facility])[address] [place] [address] Glucose [Mass/Vol] 102 mg/dL High 70-100 [facility] Comment on above: Performed By: #### L [id number] ####[facility] ([facility])[address] [place] [address] Potassium [Moles/Vol] 3.4 mmol/L Low 3.5-5.1 [facility] Comment on above: Performed By: #### L [id number] ####[facility] ([facility])[address] [place] [address] Sodium [Moles/Vol] 138 mmol/L Normal 136-145 [facility] Comment on above: Performed By: #### L [id number] ####[facility] ([facility])[address] [place] [address] Urea nitrogen [Mass/Vol] 22 mg/dL Normal 7-25 [facility] Comment on above: Performed By: #### L [id number] ####[facility] ([facility])[address] [place] [address] UREA NITROGEN/CREATININ E (MASS RATIO) IN SER/PLAS 35.5 Normal [facility] Comment on above: Performed By: #### L [id number] ####[facility] ([facility])[address] [place] [address] CBC WITH AUTO DIFFERENTIALon 04-28-2023 Basophils (Bld) [#/Vol] 0.02 10*3/uL Normal 0.00-0.20 [facility] Comment on above: Performed By: #### L [id number] ####[facility] ([facility])[address] [place] [address] Basophils/100 WBC (Bld) 0.2 % Normal 0.0-1.0 [facility] Comment on above: Performed By: #### L [id number] ####[facility] ([facility])[address] [place] [address] Eosinophils (Bld) [#/Vol] 0.09 10*3/uL Normal 0.00-0.50 [facility] Comment on above: Performed By: #### L [id number] ####[facility] ([facility])[address] [place] [address] Eosinophils/100 WBC (Bld) 1.1 % Normal 0.0-6.0 [facility] Comment on above: Performed By: #### L [id number] ####[facility] ([facility])[address] [place] [address] Erythrocyte distribution width (RBC) [Ratio] 13.6 % Normal 11.5-15.0 [facility] Comment on above: Performed By: #### L [id number] ####[facility] ([facility])[address] [place] [address] ERYTHROCYTE MEAN CORPUSCULAR HEMOGLOBIN CONCENTRATION (G/DL) BY AUTOMATED 33.1 g/dL Normal 32.0-35.0 [facility] Comment on above: Performed By: #### L [id number] ####[facility] ([facility])[address] [place] [address] Hematocrit (Bld) [Volume fraction] 32.3 % Low 39.0-55.0 [facility] Comment on above: Performed By: #### L [id number] ####[facility] ([facility]ER)[address] [place] [address] Hemoglobin (Bld) [Mass/Vol] 10.7 g/dL Low 13.0-17.0 [facility] Comment on above: Performed By: #### L [id number] ####[facility] ([facility])[address] [place] [address] Immature granulocytes (Bld) [#/Vol] 0.06 10*3/uL Normal 0.00-0.20 [facility] Comment on above: Performed By: #### L [id number] ####[facility] ([facility])[address] [place] [address] Immature granulocytes/100 WBC (Bld) 0.7 % Normal 0.0-1.0 [facility] Comment on above: Performed By: #### L [id number] ####[facility] ([facility])[address] [place] [address] Lymphocytes (Bld) [#/Vol] 1.82 10*3/uL Normal 1.20-4.00 [facility] Comment on above: Performed By: #### L [id number] ####[facility] ([facility])[address] [place] [address] Lymphocytes/100 WBC (Bld) 22.2 % Normal 20.0-45.0 [facility] Comment on above: Performed By: #### L [id number] ####[facility] ([facility])[address] [place] [address] MCH (RBC) [Entitic mass] 30.3 pg Normal 27.0-33.0 [facility] Comment on above: Performed By: #### L [id number] ####[facility] ([facility])[address] [place] [address] MCV (RBC) [Entitic vol] 91.5 fL Normal 82.0-98.0 [facility] Comment on above: Performed By: #### L [id number] ####[facility] ([facility])[address] [place] [address] Monocytes (Bld) [#/Vol] 0.67 10*3/uL Normal 0.10-1.00 [facility] Comment on above: Performed By: #### L [id number] ####[facility] ([facility])[address] [place] [address] Monocytes/100 WBC (Bld) 8.2 % Normal 5.0-12.0 [facility] Comment on above: Performed By: #### L [id number] ####[facility] ([facility])[address] [place] [address] Neutrophils (Bld) [#/Vol] 5.55 10*3/uL Normal 1.60-7.60 [facility] Comment on above: Performed By: #### L [id number] ####[facility] ([facility])[address] [address] Neutrophils/100 WBC (Bld) 67.6 % Normal 40.0-72.0 [facility] Comment on above: Performed By: #### L [id number] ####[facility] ([facility])[address] [place] [address] NRBC (PER 100 WBCS) BY AUTOMATED COUNT 0.0 % Normal 0 [facility] Comment on above: Performed By: #### L [id number] ####[facility] ([facility])[address] [place] [address] PLATELETS (10*3/UL) IN BLOOD AUTOMATED COUNT 160 10*3/uL Normal 150-400 [facility] Comment on above: Performed By: #### L [id number] ####[facility] ([facility])[address] [address] RBC (Bld) [#/Vol] 3.53 10*6/uL Low 4.20-5.70 [facility] Comment on above: Performed By: #### L [id number] ####[facility] ([facility])[address] [address] WBC (Bld) [#/Vol] 8.21 10*3/uL Normal 4.00-10.60 [facility] Comment on above: Performed By: #### L [id number] ####[facility] ([facility])[address] [place] [address] MAGNESIUMon 04-28-2023 Magnesium [Mass/Vol] 1.7 mg/dL Low 1.9-2.7 [facility] Comment on above: Performed By: #### L [id number] ####[facility] ([facility])[address] [place] [address] PHOSPHORUSon 04-28-2023 Magnesium [Mass/Vol] 3.9 mg/dL Normal 2.5-5.0 [facility] Comment on above: Performed By: #### L [id number] ####[facility] ([facility])[address] [place] [address] POCT GLUCOSE METER UNSOLICIT ED RESULTSon 04-28-2023 Glucose [Mass/Vol] 111 mg/dL High 70-105 [facility] Comment on above: Order Comment: Waive d Testing in the ED is performed under the ED CLIA certificate #[id number]. Result Comment: [email or web address] [email or web address] Performed By: #### L [id number] ####[facility] ([facility])[address] [place] [address] Glucose [Mass/Vol] 86 mg/dL Normal 70-105 [facility] Comment on above: Order Comment: Waive d Testing in the ED is performed under the ED CLIA certificate #[id number]. Result Comment: mitra shea Performed By: #### L [id number] ####[facility] ([facility])[address] [place] [address] Glucose [Mass/Vol] 159 mg/dL High 70-105 [facility] Comment on above: Order Comment: Waive d Testing in the ED is performed under the ED CLIA certificate #[id number]. Result Comment: mitra shea Performed By: #### L [id number] ####[facility] ([facility])[address] [place] [address] Glucose [Mass/Vol] 109 mg/dL High 70-105 [facility] Comment on above: Order Comment: Waive d Testing in the ED is performed under the ED CLIA certificate #[id number]. Result Comment: [email or web address] [email or web address] Performed By: #### L [id number] ####[facility] ([facility])[address] [place] [address] BASIC METABOLIC PANELon 04-17 Anion gap [Moles/Vol] 11 mmol/L Normal 7-20 [facility] Comment on above: Performed By: #### L [id number] ####[facility] ([facility])[address] [place] [address] Calcium [Mass/Vol] 8.2 mg/dL Low 8.6-10.3 [facility] Comment on above: Performed By: #### L [id number] ####[facility] ([facility])[address] [place] [address] Chloride [Moles/Vol] 112 mmol/L High 98-107 [facility] Comment on above: Performed By: #### L [id number] ####[facility] ([facility])[address] [place] [address] CO2 [Moles/Vol] 23 mmol/L Normal 21-31 [facility] Comment on above: Performed By: #### L [id number] ####[facility] ([facility])[address] [place] [address] Creatinine [Mass/Vol] 0.64 mg/dL Low 0.70-1.30 [facility] Comment on above: Performed By: #### L [id number] ####[facility] ([facility])[address] [place] [address] GLOMERULAR FILTRATION RATE ML/MIN/1.73 SQ M.PREDICTED 102.5 mL/min/1.73m*2 Normal >60.0 [facility] Comment on above: Result Comment: The [facility]???s estimated glomerular filtration rate (eGFR) will no [...] of individuals. Performed By: #### L [id number] ####[facility] ([facility])[address] [place] [address] Glucose [Mass/Vol] 116 mg/dL High 70-100 [facility] Comment on above: Performed By: #### L [id number] ####[facility] ([facility])[address] [place] [address] Potassium [Moles/Vol] 3.9 mmol/L Normal 3.5-5.1 [facility] Comment on above: Performed By: #### L [id number] ####[facility] ([facility])[address] [place] [address] Sodium [Moles/Vol] 142 mmol/L Normal 136-145 [facility] Comment on above: Performed By: #### L [id number] ####[facility] ([facility])[address] [place] [address] Urea nitrogen [Mass/Vol] 22 mg/dL Normal 7-25 [facility] Comment on above: Performed By: #### L [id number] ####[facility] ([facility])[address] [place] [address] UREA NITROGEN/CREATININ E (MASS RATIO) IN SER/PLAS 34.4 Normal [facility] Comment on above: Performed By: #### L [id number] ####[facility] ([facility])[address] [place] [address] CBC WITH AUTO DIFFERENTIALon 04-27-2023 Basophils (Bld) [#/Vol] 0.02 10*3/uL Normal 0.00-0.20 [facility] Comment on above: Performed By: #### L [id number] ####[facility] ([facility])[address] [place] [address] Basophils/100 WBC (Bld) 0.2 % Normal 0.0-1.0 [facility] Comment on above: Performed By: #### L [id number] ####[facility] ([facility])[address] [place] [address] Eosinophils (Bld) [#/Vol] 0.05 10*3/uL Normal 0.00-0.50 [facility] Comment on above: Performed By: #### L [id number] ####[facility] ([facility])[address] [place] [address] Eosinophils/100 WBC (Bld) 0.5 % Normal 0.0-6.0 [facility] Comment on above: Performed By: #### L [id number] ####[facility] ([facility])[address] [place] [address] Erythrocyte distribution width (RBC) [Ratio] 13.6 % Normal 11.5-15.0 [facility] Comment on above: Performed By: #### L [id number] ####[facility] ([facility])[address] [place] [address] ERYTHROCYTE MEAN CORPUSCULAR HEMOGLOBIN CONCENTRATION (G/DL) BY AUTOMATED 33.7 g/dL Normal 32.0-35.0 [facility] Comment on above: Performed By: #### L [id number] ####[facility] ([facility])[address] [place] [address] Hematocrit (Bld) [Volume fraction] 26.4 % Low 39.0-55.0 [facility] Comment on above: Performed By: #### L [id number] ####[facility] ([facility])[address] [place] [address] Hemoglobin (Bld) [Mass/Vol] 8.9 g/dL Low 13.0-17.0 [facility] Comment on above: Performed By: #### L [id number] ####[facility] ([facility])[address] [place] [address] Immature granulocytes (Bld) [#/Vol] 0.07 10*3/uL Normal 0.00-0.20 [facility] Comment on above: Performed By: #### L [id number] ####[facility] ([facility])[address] [place] [address] Immature granulocytes/100 WBC (Bld) 0.8 % Normal 0.0-1.0 [facility] Comment on above: Performed By: #### L [id number] ####[facility] ([facility]ER)[address] [place] [address] Lymphocytes (Bld) [#/Vol] 1.24 10*3/uL Normal 1.20-4.00 [facility] Comment on above: Performed By: #### L [id number] ####[facility] ([facility])[address] [place] [address] Lymphocytes/100 WBC (Bld) 13.3 % Low 20.0-45.0 [facility] Comment on above: Performed By: #### L [id number] ####[facility] ([facility]ER)[address] [place] [address] MCH (RBC) [Entitic mass] 30.5 pg Normal 27.0-33.0 [facility] Comment on above: Performed By: #### L [id number] ####[facility] ([facility]ER)[address] [place] [address] MCV (RBC) [Entitic vol] 90.4 fL Normal 82.0-98.0 [facility] Comment on above: Performed By: #### L [id number] ####[facility] (BEAKER)[address] [place] [address] Monocytes (Bld) [#/Vol] 0.72 10*3/uL Normal 0.10-1.00 [facility] Comment on above: Performed By: #### L [id number] ####[facility] (BEAKER)[address] [place] [address] Monocytes/100 WBC (Bld) 7.7 % Normal 5.0-12.0 [facility] Comment on above: Performed By: #### L [id number] ####[facility] (BEAKER)[address] [place] [address] Neutrophils (Bld) [#/Vol] 7.22 10*3/uL Normal 1.60-7.60 [facility] Comment on above: Performed By: #### L [id number] ####[facility] (BEAKER)[address] [place] [address] Neutrophils/100 WBC (Bld) 77.5 % High 40.0-72.0 [facility] Comment on above: Performed By: #### L [id number] ####[facility] ([facility])[address] [place] [address] NRBC (PER 100 WBCS) BY AUTOMATED COUNT 0.0 % Normal 0 [facility] Comment on above: Performed By: #### L [id number] ####[facility] ([facility])[address] [address] PLATELETS (10*3/UL) IN BLOOD AUTOMATED COUNT 100 10*3/uL Low 150-400 [facility] Comment on above: Performed By: #### L [id number] ####[facility] ([facility])[address] [place] [address] RBC (Bld) [#/Vol] 2.92 10*6/uL Low 4.20-5.70 [facility] Comment on above: Performed By: #### L [id number] ####[facility] ([facility])[address] [place] [address] WBC (Bld) [#/Vol] 9.32 10*3/uL Normal 4.00-10.60 [facility] Comment on above: Performed By: #### L [id number] ####[facility] ([facility])[address] [place] [address] MAGNESIUMon 04-27-2023 Magnesium [Mass/Vol] 1.9 mg/dL Normal 1.9-2.7 [facility] Comment on above: Performed By: #### L [id number] ####[facility] ([facility])[address] [place] [address] PHOSPHORUSon 04-27-2023 Magnesium [Mass/Vol] 3.5 mg/dL Normal 2.5-5.0 [facility] Comment on above: Performed By: #### L [id number] ####[facility] ([facility])[address] [place] [address] POCT GLUCOSE METER UNSOLICIT ED RESULTSon 04-27-2023 Glucose [Mass/Vol] 100 mg/dL Normal 70-105 [facility] Comment on above: Order Comment: Waive d Testing in the ED is performed under the ED CLIA certificate #[id number]. Result Comment: afin [email or web address] Performed By: #### L [id number] ####[facility] ([facility])[address] [place] [address] Glucose [Mass/Vol] 165 mg/dL High 70-105 [facility] Comment on above: Order Comment: Waive d Testing in the ED is performed under the ED CLIA certificate #[id number]. Result Comment: mitra shea Performed By: #### L [id number] ####[facility] ([employer])[address] [place] [address] Glucose [Mass/Vol] 157 mg/dL High 70-105 [facility] Comment on above: Order Comment: Waive d Testing in the ED is performed under the ED CLIA certificate #[id number]. Result Comment: mitra shea Performed By: #### L [id number] ####[facility] ([facility])[address] [place] [address] Glucose [Mass/Vol] 112 mg/dL High 70-105 [facility] Comment on above: Order Comment: Waive d Testing in the ED is performed under the ED CLIA certificate #[id number]. Result Comment: afin [email or web address] Performed By: #### L [id number] ####[facility] ([facility])[address] [place] [address] PROTIME-INRon 04-27-2023 INR IN PPP BY COAGULATION ASSAY 1.21 High 0.90-1.10 [facility] Comment on above: Result Comment: ACCC P [...] CHEST 1995;[id number]. Performed By: #### L [id number] ####[facility] ([employer])[address] [address] PROTHROMBIN TIME (PT) IN PPP BY COAGULATION ASSAY 15.3 Seconds High 12.3-14.8 [facility] Comment on above: Performed By: #### L [id number] ####[facility] (BEAKER)[address] [address] 30on 04-26-2023 30 Normal [facility] 30 Normal [facility] 30 Normal [facility] 30 Normal [facility] BASIC METABOLIC PANELon 11-1 Anion gap [Moles/Vol] 10 mmol/L Normal 7-20 [facility] Comment on above: Performed By: #### L [id number] ####[facility] (BEAKER)[address] [place] [address] Calcium [Mass/Vol] 8.5 mg/dL Low 8.6-10.3 [facility] Comment on above: Performed By: #### L [id number] ####[facility] (BEAKER)[address] [place] [address] Chloride [Moles/Vol] 109 mmol/L High 98-107 [facility] Comment on above: Performed By: #### L [id number] ####[facility] (BEAKER)[address] [place] [address] CO2 [Moles/Vol] 25 mmol/L Normal 21-31 [facility] Comment on above: Performed By: #### L [id number] ####[facility] ([facility])[address] [place] [address] Creatinine [Mass/Vol] 0.62 mg/dL Low 0.70-1.30 [facility] Comment on above: Performed By: #### L [id number] ####[facility] ([facility])[address] [place] [address] GLOMERULAR FILTRATION RATE ML/MIN/1.73 SQ M.PREDICTED 103.5 mL/min/1.73m*2 Normal >60.0 [facility] Comment on above: Result Comment: The [facility]???s estimated glomerular filtration rate (eGFR) will no [...] of individuals. Performed By: #### L [id number] ####[facility] ([facility])[address] [place] [address] Glucose [Mass/Vol] 136 mg/dL High 70-100 [facility] Comment on above: Performed By: #### L [id number] ####[facility] ([facility])[address] [place] [address] Potassium [Moles/Vol] 3.6 mmol/L Normal 3.5-5.1 [facility] Comment on above: Performed By: #### L [id number] ####[facility] ([facility])[address] [place] [address] Sodium [Moles/Vol] 140 mmol/L Normal 136-145 [facility] Comment on above: Performed By: #### L [id number] ####[facility] ([facility]AKER)[address] [place] [address] Urea nitrogen [Mass/Vol] 18 mg/dL Normal 7-25 [facility] Comment on above: Performed By: #### L [id number] ####[facility] ([facility])[address] [place] [address] UREA NITROGEN/CREATININ E (MASS RATIO) IN SER/PLAS 29.0 Normal [facility] Comment on above: Performed By: #### L [id number] ####[facility] ([facility])[address] [place] [address] Anion gap [Moles/Vol] 9 mmol/L Normal 7-20 [facility] Comment on above: Performed By: #### L [id number] ####[facility] ([facility]ER)[address] [place] [address] Calcium [Mass/Vol] 7.8 mg/dL Low 8.6-10.3 [facility] Comment on above: Performed By: #### L [id number] ####[facility] ([facility])[address] [place] [address] Chloride [Moles/Vol] 112 mmol/L High 98-107 [facility] Comment on above: Performed By: #### L [id number] ####[facility] (BEAKER)[address] [place] [address] CO2 [Moles/Vol] 23 mmol/L Normal 21-31 [facility] Comment on above: Performed By: #### L [id number] ####[facility] ([facility]ER)[address] [place] [address] Creatinine [Mass/Vol] 0.61 mg/dL Low 0.70-1.30 [facility] Comment on above: Performed By: #### L [id number] ####[facility] ([facility]ER)[address] [place] [address] GLOMERULAR FILTRATION RATE ML/MIN/1.73 SQ M.PREDICTED 104.0 mL/min/1.73m*2 Normal >60.0 [facility] Comment on above: Result Comment: The [facility]???s estimated glomerular filtration rate (eGFR) will no [...] of individuals. Performed By: #### L [id number] ####[facility] ([facility])[address] [place] [address] Glucose [Mass/Vol] 112 mg/dL High 70-100 [facility] Comment on above: Performed By: #### L [id number] ####[facility] ([facility])[address] [place] [address] Potassium [Moles/Vol] 3.4 mmol/L Low 3.5-5.1 [facility] Comment on above: Performed By: #### L [id number] ####[facility] ([facility])[address] [place] [address] Sodium [Moles/Vol] 141 mmol/L Normal 136-145 [facility] Comment on above: Performed By: #### L [id number] ####[facility] ([facility])[address] [place] [address] Urea nitrogen [Mass/Vol] 14 mg/dL Normal 7-25 [facility] Comment on above: Performed By: #### L [id number] ####[facility] ([facility])[address] [place] [address] UREA NITROGEN/CREATININ E (MASS RATIO) IN SER/PLAS 23.0 Normal [facility] Comment on above: Performed By: #### L [id number] ####[facility] ([facility])[address] [place] [address] CBCon 04-26-2023 Erythrocyte distribution width (RBC) [Ratio] 13.9 % Normal 11.5-15.0 [facility] Comment on above: Performed By: #### L [id number] ####[facility] ([facility])[address] [place] [address] ERYTHROCYTE MEAN CORPUSCULAR HEMOGLOBIN CONCENTRATION (G/DL) BY AUTOMATED 33.7 g/dL Normal 32.0-35.0 [facility] Comment on above: Performed By: #### L [id number] ####[facility] ([facility])[address] [place] [address] Hematocrit (Bld) [Volume fraction] 24.3 % Low 39.0-55.0 [facility] Comment on above: Performed By: #### L [id number] ####[facility] (BEAKER)[address] [place] [address] Hemoglobin (Bld) [Mass/Vol] 8.2 g/dL Low 13.0-17.0 [facility] Comment on above: Performed By: #### L [id number] ####[facility] (BEAKER)[address] [place] [address] IMMATURE PLATELET FRACTION % 4.3 % Normal 0.8-6.3 [facility] Comment on above: Performed By: #### L [id number] ####[facility] (BEAKER)[address] [place] [address] MCH (RBC) [Entitic mass] 30.4 pg Normal 27.0-33.0 [facility] Comment on above: Performed By: #### L [id number] ####[facility] (BEAKER)[address] [place] [address] MCV (RBC) [Entitic vol] 90.0 fL Normal 82.0-98.0 [facility] Comment on above: Performed By: #### L [id number] ####[facility] (BEAKER)[address] [place] [address] PLATELETS (10*3/UL) IN BLOOD AUTOMATED COUNT 71 10*3/uL Low 150-400 [facility] Comment on above: Performed By: #### L [id number] ####[facility] ([facility])[address] [place] [address] RBC (Bld) [#/Vol] 2.70 10*6/uL Low 4.20-5.70 [facility] Comment on above: Performed By: #### L [id number] ####[facility] ([facility])[address] [place] [address] WBC (Bld) [#/Vol] 7.74 10*3/uL Normal 4.00-10.60 [facility] Comment on above: Performed By: #### L [id number] ####[facility] ([facility])[address] [place] [address] CO-OXIMETRYon 04-26-2023 CARBOXYHEMOGLOBIN/ HEMOGLOBIN TOTAL % IN BLOOD 1.4 % Normal [facility] Comment on above: Performed By: #### L [id number] ####[facility] [id number] [place] [address] [place] Hemoglobin (Bld) [Mass/Vol] 8.5 g/dL Normal [facility] Comment on above: Performed By: #### L [id number] ####[facility] [id number] [place] [address] [place] METHEMOGLOBIN/100 IN BLOOD 0.3 % Normal 0.0-1.5 [facility] Comment on above: Performed By: #### L [id number] ####[facility] [id number] [place] [address] [place] Oxygen saturation in Blood 57.1 % Normal [facility] Comment on above: Performed By: #### L [id number] ####[facility] [id number] [place] [address] [place] OXYGENATED HEMOGLOBIN IN BLOOD 56.1 % Normal [facility] Comment on above: Performed By: #### L [id number] ####[facility] [id number] [place] [address] [place] IRON AND TIBCon 04-26-2023 IRON (UG/DL) IN SER/PLAS 16 ug/dL Low 50-212 [facility] Comment on above: Performed By: #### L [id number] ####[facility] ([facility]ER)[address] [place] [address] IRON BINDING CAPACITY (UG/DL) IN SER/PLAS 143 ug/dL Low 250-450 [facility] Comment on above: Performed By: #### L [id number] ####[facility] ([facility]ER)[address] [place] [address] IRON BINDING CAPACITY.UNSATURAT ED (UG/DL) IN SER/PLAS 127.0 ug/dL Low 155.0-355.0 [facility] Comment on above: Performed By: #### L [id number] ####[facility] (BEAKER)[address] [place] [address] IRON SATURATION (%) IN SER/PLAS 11 % Low 20-50 [facility] Comment on above: Performed By: #### L [id number] ####[facility] (BEAKER)[address] [place] [address] LACTIC ACID, PLASMAon 2022 LACTATE (MMOL/L) IN SER/PLAS 0.6 mmol/L Normal 0.5-2.2 [facility] Comment on above: Performed By: #### L [id number] ####[facility] (BEAKER)[address] [place] [address] MAGNESIUMon 04-26-2023 Magnesium [Mass/Vol] 1.6 mg/dL Low 1.9-2.7 [facility] Comment on above: Performed By: #### L [id number] ####[facility] ([facility]ER)[address] [place] [address] Magnesium [Mass/Vol] 1.7 mg/dL Low 1.9-2.7 [facility] Comment on above: Performed By: #### L [id number] ####[facility] ([facility]ER)[address] [place] [address] PHOSPHORUSon 04-26-2023 Magnesium [Mass/Vol] 3.4 mg/dL Normal 2.5-5.0 [facility] Comment on above: Performed By: #### L [id number] ####[facility] ([facility])[address] [place] [address] Magnesium [Mass/Vol] 3.7 mg/dL Normal 2.5-5.0 [facility] Comment on above: Performed By: #### L [id number] ####[facility] ([facility])[address] [place] [address] POCT GLUCOSE METER UNSOLICIT ED RESULTSon 04-26-2023 Glucose [Mass/Vol] 134 mg/dL High 70-105 [facility] Comment on above: Order Comment: Waive d Testing in the ED is performed under the ED CLIA certificate #[id number]. Result Comment: [email or web address] Performed By: #### L [id number] ####[facility] ([facility])[address] [place] [address] Glucose [Mass/Vol] 129 mg/dL High 70-105 [facility] Comment on above: Order Comment: Waive d Testing in the ED is performed under the ED CLIA certificate #[id number]. Result Comment: [email or web address] Performed By: #### L [id number] ####[facility] ([facility])[address] [place] [address] Glucose [Mass/Vol] 121 mg/dL High 70-105 [facility] Comment on above: Order Comment: Waive d Testing in the ED is performed under the ED CLIA certificate #[id number]. Result Comment: than [email or web address] Performed By: #### L [id number] ####[facility] ([facility])[address] [place] [address] Glucose [Mass/Vol] 113 mg/dL High 70-105 [facility] Comment on above: Order Comment: Waive d Testing in the ED is performed under the ED CLIA certificate #[id number]. Result Comment: than sen2 Performed By: #### L [id number] ####[facility] ([facility])[address] [place] [address] PREALBUMINon 04-26-2023 Prealbumin [Mass/Vol] 6.4 mg/dL Normal [facility] Comment on above: Performed By: #### L [id number] ####[facility] ([facility])[address] [place] [address] TRANSFERRINon 04-26-2023 Magnesium [Mass/Vol] 82 mg/dL Low 168-348 [facility] Comment on above: Performed By: #### L [id number] ####[facility] ([facility])[address] [place] [address] 30on 04-25-2023 30 Normal [facility] AMMONIAon 04-25-2023 AMMONIA (UMOL/L) IN PLASMA 39 umol/L Normal 18-72 [facility] Comment on above: Performed By: #### L [id number] ####[facility] ([facility])[address] [place] [address] APTTon 04-25-2023 ACTIVATED PARTIAL THROMBOPLASTIN TIME IN PPP BY COAGULATION ASSAY 37.2 Seconds High 25.0-35.0 [facility] Comment on above: Result Comment: Clin ical significance of the APTT is questionable in the presence of heparin. Performed By: #### L [id number] ####[facility] ([facility])[address] [place] [address] BASIC METABOLIC PANELon 110 Anion gap [Moles/Vol] 9 mmol/L Normal 7-20 [facility] Comment on above: Performed By: #### L [id number] ####[facility] ([facility])[address] [place] [address] Calcium [Mass/Vol] 8.2 mg/dL Low 8.6-10.3 [facility] Comment on above: Performed By: #### L [id number] ####[facility] ([facility])[address] [place] [address] Chloride [Moles/Vol] 111 mmol/L High 98-107 [facility] Comment on above: Performed By: #### L [id number] ####[facility] (BEAKER)[address] [place] [address] CO2 [Moles/Vol] 24 mmol/L Normal 21-31 [facility] Comment on above: Performed By: #### L [id number] ####[facility] (BEAKER)[address] [place] [address] Creatinine [Mass/Vol] 0.71 mg/dL Normal 0.70-1.30 [facility] Comment on above: Performed By: #### L [id number] ####[facility] (BEAKER)[address] [place] [address] GLOMERULAR FILTRATION RATE ML/MIN/1.73 SQ M.PREDICTED 99.3 mL/min/1.73m*2 Normal >60.0 [facility] Comment on above: Result Comment: The [facility]???s estimated glomerular filtration rate (eGFR) will no [...] of individuals. Performed By: #### L [id number] ####[facility] (BEAKER)[address] [place] [address] Glucose [Mass/Vol] 124 mg/dL High 70-100 [facility] Comment on above: Performed By: #### L [id number] ####[facility] (BEAKER)[address] [place] [address] Potassium [Moles/Vol] 3.9 mmol/L Normal 3.5-5.1 [facility] Comment on above: Performed By: #### L [id number] ####[facility] (BEAKER)[address] [place] [address] Sodium [Moles/Vol] 140 mmol/L Normal 136-145 [facility] Comment on above: Performed By: #### L [id number] ####[facility] ([facility])[address] [place] [address] Urea nitrogen [Mass/Vol] 17 mg/dL Normal 7-25 [facility] Comment on above: Performed By: #### L [id number] ####[facility] ([facility])[address] [place] [address] UREA NITROGEN/CREATININ E (MASS RATIO) IN SER/PLAS 23.9 Normal [facility] Comment on above: Performed By: #### L [id number] ####[facility] ([facility])[address] [place] [address] CBCon 04-25-2023 Erythrocyte distribution width (RBC) [Ratio] 14.0 % Normal 11.5-15.0 [facility] Comment on above: Performed By: #### L [id number] ####[facility] ([facility])[address] [place] [address] ERYTHROCYTE MEAN CORPUSCULAR HEMOGLOBIN CONCENTRATION (G/DL) BY AUTOMATED 34.1 g/dL Normal 32.0-35.0 [facility] Comment on above: Performed By: #### L [id number] ####[facility] ([facility])[address] [place] [address] Hematocrit (Bld) [Volume fraction] 24.9 % Low 39.0-55.0 [facility] Comment on above: Performed By: #### L [id number] ####[facility] ([facility])[address] [place] [address] Hemoglobin (Bld) [Mass/Vol] 8.5 g/dL Low 13.0-17.0 [facility] Comment on above: Performed By: #### L [id number] ####[facility] ([facility])[address] [place] [address] IMMATURE PLATELET FRACTION % 5.1 % Normal 0.8-6.3 [facility] Comment on above: Performed By: #### L [id number] ####[facility] ([facility])[address] [address] MCH (RBC) [Entitic mass] 30.7 pg Normal 27.0-33.0 [facility] Comment on above: Performed By: #### L [id number] ####[facility] ([facility])[address] [address] MCV (RBC) [Entitic vol] 89.9 fL Normal 82.0-98.0 [facility] Comment on above: Performed By: #### L [id number] ####[facility] ([facility])[address] [address] PLATELETS (10*3/UL) IN BLOOD AUTOMATED COUNT 55 10*3/uL Low 150-400 [facility] Comment on above: Performed By: #### L [id number] ####[facility] ([facility])[address] [place] [address] RBC (Bld) [#/Vol] 2.77 10*6/uL Low 4.20-5.70 [facility] Comment on above: Performed By: #### L [id number] ####[facility] ([facility])[address] [address] WBC (Bld) [#/Vol] 9.29 10*3/uL Normal 4.00-10.60 [facility] Comment on above: Performed By: #### L [id number] ####[facility] ([facility])[address] [place] [address] Erythrocyte distribution width (RBC) [Ratio] 14.6 % Normal 11.5-15.0 [facility] Comment on above: Performed By: #### L [id number] ####[facility] ([facility])[address], [place] [address] ERYTHROCYTE MEAN CORPUSCULAR HEMOGLOBIN CONCENTRATION (G/DL) BY AUTOMATED 34.1 g/dL Normal 32.0-35.0 [facility] Comment on above: Performed By: #### L [id number] ####[facility] (BEAKER)[address] [place] [address] Hematocrit (Bld) [Volume fraction] 25.5 % Low 39.0-55.0 [facility] Comment on above: Performed By: #### L [id number] ####[facility] (BEAKER)[address] [place] [address] Hemoglobin (Bld) [Mass/Vol] 8.7 g/dL Low 13.0-17.0 [facility] Comment on above: Performed By: #### L [id number] ####[facility] (BEAKER)[address] [place] [address] IMMATURE PLATELET FRACTION % 5.5 % Normal 0.8-6.3 [facility] Comment on above: Performed By: #### L [id number] ####[facility] (BEAKER)[address] [place] [address] MCH (RBC) [Entitic mass] 31.0 pg Normal 27.0-33.0 [facility] Comment on above: Performed By: #### L [id number] ####[facility] (BEAKER)[address] [place] [address] MCV (RBC) [Entitic vol] 90.7 fL Normal 82.0-98.0 [facility] Comment on above: Performed By: #### L [id number] ####[facility] (BEAKER)[address] [place] [address] PLATELETS (10*3/UL) IN BLOOD AUTOMATED COUNT 56 10*3/uL Low 150-400 [facility] Comment on above: Result Comment: P=69 , 1D Performed By: #### L [id number] ####[facility] (BEAKER)[address] [place] [address] RBC (Bld) [#/Vol] 2.81 10*6/uL Low 4.20-5.70 [facility] Comment on above: Performed By: #### L [id number] ####[facility] (BEAKER)[address] [place] [address] WBC (Bld) [#/Vol] 10.33 10*3/uL Normal 4.00-10.60 [facility] Comment on above: Performed By: #### L [id number] ####[facility] ([facility])[address] [place] [address] CO-OXIMETRYon 04-25-2023 CARBOXYHEMOGLOBIN/ HEMOGLOBIN TOTAL % IN BLOOD 0.8 % Normal [facility] Comment on above: Performed By: #### L [id number] ####[facility] [id number] [place] [address] [place] Hemoglobin (Bld) [Mass/Vol] 7.8 g/dL Normal [facility] Comment on above: Performed By: #### L [id number] ####[facility] [id number] [place] [address] [place] METHEMOGLOBIN/100 IN BLOOD 1.1 % Normal 0.0-1.5 [facility] Comment on above: Performed By: #### L [id number] ####[facility] [id number] [place] [address] [place] Oxygen saturation in Blood 70.2 % Normal [facility] Comment on above: Performed By: #### L [id number] ####[facility] [id number] [place] [address] [place] OXYGENATED HEMOGLOBIN IN BLOOD 68.8 % Normal [facility] Comment on above: Performed By: #### L [id number] ####[facility] [id number] [place] [address] [facility] HEPATIC FUNCTION PANELon Albumin [Mass/Vol] 3.3 g/dL Low 3.5-5.7 [facility] Comment on above: Performed By: #### L [id number] ####[facility] ([facility])[address] [place] [address] ALP [Catalytic activity/Vol] 49 U/L Normal 34-104 [facility] Comment on above: Performed By: #### L [id number] ####[facility] ([facility])[address] [place] [address] ALT [Catalytic activity/Vol] 60 U/L High 7-52 [facility] Comment on above: Performed By: #### L [id number] ####[facility] ([facility])[address] [place] [address] AST [Catalytic activity/Vol] 127 U/L High 13-39 [facility] Comment on above: Performed By: #### L [id number] ####[facility] ([facility])[address] [place] [address] Bilirubin [Mass/Vol] 0.5 mg/dL Normal 0.3-1.0 [facility] Comment on above: Performed By: #### L [id number] ####[facility] ([facility])[address] [place] [address] Magnesium [Mass/Vol] 0.2 mg/dL Normal 0-0.2 [facility] Comment on above: Performed By: #### L [id number] ####[facility] ([facility])[address] [place] [address] Protein [Mass/Vol] 4.8 g/dL Low 6.0-8.3 [facility] Comment on above: Performed By: #### L [id number] ####[facility] ([facility])[address] [place] [address] LACTIC ACID WITH 4 HOUR REFL EXon 04-25-2023 LACTATE (MMOL/L) IN SER/PLAS 1.4 mmol/L Normal 0.5-2.2 [facility] Comment on above: Performed By: #### L [id number] ####[facility] ([facility])[address] [place] [address] MAGNESIUMon 04-25-2023 Magnesium [Mass/Vol] 1.7 mg/dL Low 1.9-2.7 [facility] Comment on above: Performed By: #### L [id number] ####[facility] ([facility])[address] [place] [address] NURSNOTEon 04-25-2023 NURSNOTE Normal [facility] NURSNOTE Normal [facility] PHOSPHORUSon 04-25-2023 Magnesium [Mass/Vol] 2.3 mg/dL Low 2.5-5.0 [facility] Comment on above: Performed By: #### L [id number] ####[facility] ([facility])[address] [place] [address] POCT GLUCOSE METER UNSOLICIT ED RESULTSon 04-25-2023 Glucose [Mass/Vol] 106 mg/dL High 70-105 [facility] Comment on above: Order Comment: Waive d Testing in the ED is performed under the ED CLIA certificate #[id number]. Result Comment: [email or web address] Performed By: #### L [id number] ####[facility] ([facility])[address] [place] [address] Glucose [Mass/Vol] 128 mg/dL High 70-105 [facility] Comment on above: Order Comment: Waive d Testing in the ED is performed under the ED CLIA certificate #[id number]. Result Comment: [email or web address] Performed By: #### L [id number] ####[facility] ([facility])[address] [place] [address] PROTIME-INRon 04-25-2023 INR IN PPP BY COAGULATION ASSAY 1.34 High 0.90-1.10 [facility] Comment on above: Result Comment: ACCC P [...] CHEST 1995;[id number]. Performed By: #### L [id number] ####[facility] ([employer])[address] [place] [address] PROTHROMBIN TIME (PT) IN PPP BY COAGULATION ASSAY 16.6 Seconds High 12.3-14.8 [facility] Comment on above: Performed By: #### L [id number] ####[facility] ([employer])[address] [place] [address] INR IN PPP BY COAGULATION ASSAY 1.39 High 0.90-1.10 [facility] Comment on above: Result Comment: ACCC P [...] CHEST 1995;[id number]. Performed By: #### L [id number] ####[facility] (BEAKER)[address] [place] [address] PROTHROMBIN TIME (PT) IN PPP BY COAGULATION ASSAY 17.1 Seconds High 12.3-14.8 [facility] Comment on above: Performed By: #### L [id number] ####[facility] ([facility]ER)[address] [place] [address] 30on 04-24-2023 30 Normal [facility] 30 Normal [facility] 30 Normal [facility] ARTERIAL BLOOD GAS WITH IONI ZED CALCIUMon 04-24-2023 Base excess Calc (Bld) [Moles/Vol] -2.0000 mmol/L Normal -2.0-3.0 [facility] Comment on above: Performed By: #### L [id number] ####[facility] [id number] [place] [address] [place] CALCIUM IONIZED (MMOL/L) IN BLOOD 1.06 mmol/L Low 1.15-1.33 [facility] Comment on above: Performed By: #### L [id number] ####[facility] [id number] [place] [address] [place] CO2 (Bld) [Partial pressure] 31 mm[Hg] Low 35-48 [facility] Comment on above: Performed By: #### L [id number] ####[facility] [id number] [place] [address] [place] HCO3 (Bld) [Moles/Vol] 21.5 mmol/L Normal 21.0-28.0 [facility] Comment on above: Performed By: #### L [id number] ####[facility] [id number] [place] [address] [place] Oxygen (Bld) [Partial pressure] 118 mm[Hg] High 83-100 [facility] Comment on above: Performed By: #### L [id number] ####[facility] [id number] [place] [address] [place] OXYGEN SATURATION (%) IN ARTERIAL BLOOD 99.4 % High 94.0-98.0 [facility] Comment on above: Performed By: #### L [id number] ####[facility] [id number] [place] [address] [place] pH (Bld) 7.45 [pH] Normal 7.35-7.45 [facility] Comment on above: Performed By: #### L [id number] ####[facility] [id number] [place] [address] [place] SOURCE OF OXYGEN AC/VC Normal [facility] Comment on above: Performed By: #### L [id number] ####[facility] [id number] [place] [address] [place] TIDAL VOLUME (VT) CC 8 Normal [facility] Comment on above: Performed By: #### L [id number] ####[facility] [id number] [place] [address] [facility] BASIC METABOLIC PANELon 11-0 Anion gap [Moles/Vol] 10 mmol/L Normal 7-20 [facility] Comment on above: Performed By: #### L [id number] ####[facility] ([facility]AKER)[address] [place] [address] Calcium [Mass/Vol] 8.5 mg/dL Low 8.6-10.3 [facility] Comment on above: Performed By: #### L [id number] ####[facility] ([facility]ER)[address] [place] [address] Chloride [Moles/Vol] 113 mmol/L High 98-107 [facility] Comment on above: Performed By: #### L [id number] ####[facility] ([facility])[address] [place] [address] CO2 [Moles/Vol] 24 mmol/L Normal 21-31 [facility] Comment on above: Performed By: #### L [id number] ####[facility] ([facility]ER)[address] [place] [address] Creatinine [Mass/Vol] 0.83 mg/dL Normal 0.70-1.30 [facility] Comment on above: Performed By: #### L [id number] ####[facility] ([facility])[address] [place] [address] GLOMERULAR FILTRATION RATE ML/MIN/1.73 SQ M.PREDICTED 94.7 mL/min/1.73m*2 Normal >60.0 [facility] Comment on above: Result Comment: The [facility]???s estimated glomerular filtration rate (eGFR) will no [...] of individuals. Performed By: #### L [id number] ####[facility] ([facility])[address] [place] [address] Glucose [Mass/Vol] 208 mg/dL High 70-100 [facility] Comment on above: Performed By: #### L [id number] ####[facility] ([facility])[address] [place] [address] Potassium [Moles/Vol] 3.6 mmol/L Normal 3.5-5.1 [facility] Comment on above: Performed By: #### L [id number] ####[facility] ([facility])[address] [place] [address] Sodium [Moles/Vol] 143 mmol/L Normal 136-145 [facility] Comment on above: Performed By: #### L [id number] ####[facility] ([facility])[address] [place] [address] Urea nitrogen [Mass/Vol] 19 mg/dL Normal 7-25 [facility] Comment on above: Performed By: #### L [id number] ####[facility] ([facility])[address] [place] [address] UREA NITROGEN/CREATININ E (MASS RATIO) IN SER/PLAS 22.9 Normal [facility] Comment on above: Performed By: #### L [id number] ####[facility] ([facility])[address] [place] [address] CALCIUM, IONIZEDon 3 CALCIUM IONIZED (MMOL/L) IN BLOOD 1.20 mmol/L Normal 1.15-1.33 [facility] Comment on above: Performed By: #### C ALCIUM, IONIZED ####[facility] [id number] [place] [address] [place] CBCon 04-24-2023 Erythrocyte distribution width (RBC) [Ratio] 13.9 % Normal 11.5-15.0 [facility] Comment on above: Performed By: #### L [id number] ####[facility] (BEAKER)[address] [place] [address] ERYTHROCYTE MEAN CORPUSCULAR HEMOGLOBIN CONCENTRATION (G/DL) BY AUTOMATED 34.3 g/dL Normal 32.0-35.0 [facility] Comment on above: Performed By: #### L [id number] ####[facility] (BEAKER)[address] [place] [address] Hematocrit (Bld) [Volume fraction] 28.0 % Low 39.0-55.0 [facility] Comment on above: Performed By: #### L [id number] ####[facility] (BEAKER)[address] [place] [address] Hemoglobin (Bld) [Mass/Vol] 9.6 g/dL Low 13.0-17.0 [facility] Comment on above: Performed By: #### L [id number] ####[facility] (BEAKER)[address] [place] [address] IMMATURE PLATELET FRACTION % 5.1 % Normal 0.8-6.3 [facility] Comment on above: Performed By: #### L [id number] ####[facility] (BEAKER)[address] [place] [address] MCH (RBC) [Entitic mass] 30.7 pg Normal 27.0-33.0 [facility] Comment on above: Performed By: #### L [id number] ####[facility] (BEAKER)[address] [place] [address] MCV (RBC) [Entitic vol] 89.5 fL Normal 82.0-98.0 [facility] Comment on above: Performed By: #### L [id number] ####[facility] ([facility])[address] [place] [address] PLATELETS (10*3/UL) IN BLOOD AUTOMATED COUNT 69 10*3/uL Low 150-400 [facility] Comment on above: Performed By: #### L [id number] ####[facility] ([facility])[address] [place] [address] RBC (Bld) [#/Vol] 3.13 10*6/uL Low 4.20-5.70 [facility] Comment on above: Performed By: #### L [id number] ####[facility] ([facility])[address] [place] [address] WBC (Bld) [#/Vol] 16.62 10*3/uL High 4.00-10.60 [facility] Comment on above: Performed By: #### L [id number] ####[facility] ([facility])[address] [place] [address] CO-OXIMETRYon 04-24-2023 CARBOXYHEMOGLOBIN/ HEMOGLOBIN TOTAL % IN BLOOD 1.2 % Normal [facility] Comment on above: Performed By: #### L [id number] ####[facility] [id number] [place] [address] [place] Hemoglobin (Bld) [Mass/Vol] 9.6 g/dL Normal [facility] Comment on above: Performed By: #### L [id number] ####[facility] [id number] [place] [address] [place] METHEMOGLOBIN/100 IN BLOOD 0.4 % Normal 0.0-1.5 [facility] Comment on above: Performed By: #### L [id number] ####[facility] [id number] [place] [address] [place] Oxygen saturation in Blood 67.5 % Normal [facility] Comment on above: Performed By: #### L [id number] ####[facility] [id number] [place] [address] [place] OXYGENATED HEMOGLOBIN IN BLOOD 66.4 % Normal [facility] Comment on above: Performed By: #### L [id number] ####[facility] [id number] [place] [address] [place] HEMOGLOBIN AND HEMATOCRIT, B LOODon 04-24-2023 Hematocrit (Bld) [Volume fraction] 28.1 % Low 39.0-55.0 [facility] Comment on above: Performed By: #### L [id number] ####[facility] ([facility])[address] [place] [address] Hemoglobin (Bld) [Mass/Vol] 9.5 g/dL Low 13.0-17.0 [facility] Comment on above: Performed By: #### L [id number] ####[facility] ([facility])[address] [place] [address] HEPATIC FUNCTION PANELon Albumin [Mass/Vol] 3.7 g/dL Normal 3.5-5.7 [facility] Comment on above: Performed By: #### L [id number] ####[facility] ([facility])[address] [place] [address] ALP [Catalytic activity/Vol] 39 U/L Normal 34-104 [facility] Comment on above: Performed By: #### L [id number] ####[facility] (BEAKER)[address] [place] [address] ALT [Catalytic activity/Vol] 82 U/L High 7-52 [facility] Comment on above: Performed By: #### L [id number] ####[facility] (BEAKER)[address] [place] [address] AST [Catalytic activity/Vol] 229 U/L High 13-39 [facility] Comment on above: Performed By: #### L [id number] ####[facility] (BEAKER)[address] [place] [address] Bilirubin [Mass/Vol] 0.5 mg/dL Normal 0.3-1.0 [facility] Comment on above: Performed By: #### L [id number] ####[facility] ([facility]ER)[address] [place] [address] Magnesium [Mass/Vol] 0.2 mg/dL Normal 0-0.2 [facility] Comment on above: Performed By: #### L [id number] ####[facility] (BEAKER)[address] [place] [address] Protein [Mass/Vol] 4.9 g/dL Low 6.0-8.3 [facility] Comment on above: Performed By: #### L [id number] ####[facility] ([facility])[address] [place] [address] LACTIC ACID WITH 4 HOUR REFL EXon 04-24-2023 LACTATE (MMOL/L) IN SER/PLAS 1.3 mmol/L Normal 0.5-2.2 [facility] Comment on above: Performed By: #### L [id number] ####[facility] ([facility])[address] [place] [address] Performed By: #### L [id number] ####[facility] ([facility])[address] [place] [address] LACTATE (MMOL/L) IN SER/PLAS 4.0 mmol/L Critically high 0.5-2.2 [facility] Comment on above: Result Comment: Prev ious result verified on 04/23/2023 2300 on specimen/case [id number] called with component Lactate blood venous for procedure Lactic acid, venous, whole blood with value 9.1 mmol/L. Performed By: #### L [id number] ####[facility] ([facility])[address] [place] [address] LACTATE (MMOL/L) IN SER/PLAS 9.1 mmol/L Critically high 0.5-2.2 [facility] Comment on above: Result Comment: Prev ious result verified on 04/23/2023 2137 on specimen/case [id number] called with component Lactate blood venous for procedure Lactic acid, venous, whole blood with value 12.1 mmol/L. Performed By: #### L [id number] ####[facility] (BEAKER)[address] [place] [address] MAGNESIUMon 04-24-2023 Magnesium [Mass/Vol] 1.8 mg/dL Low 1.9-2.7 [facility] Comment on above: Performed By: #### L [id number] ####[facility] ([facility])[address] [place] [address] MYOGLOBIN, URINEon 3 MYOGLOBIN URINE 2 mg/L High 0-1 [facility] Comment on above: Result Comment: [...] was developed and its performance characteristicsdetermined by [facility] [facility]. It has not been cleared orapproved by the [place] Food and Drug Administration. This test wasperformed in a CLIA certified laboratory and is intended forclinical purposes.Performed By: [facility] [place], [place] [id number] Director: Wenceslao Healy MD, PhDCLIA Number: [id number] Performed By: #### L [id number] ####[facility] ([facility])[address] [place] [address] POCT GLUCOSE METER UNSOLICIT ED RESULTSon 04-24-2023 Glucose [Mass/Vol] 129 mg/dL High 70-105 [facility] Comment on above: Order Comment: Waive d Testing in the ED is performed under the ED CLIA certificate #[id number]. Result Comment: afin [email or web address] Performed By: #### L [id number] ####[facility] (BEAKER)[address] [place] [address] Glucose [Mass/Vol] 116 mg/dL High 70-105 [facility] Comment on above: Order Comment: Waive d Testing in the ED is performed under the ED CLIA certificate #[id number]. Result Comment: dadk [email or web address] Performed By: #### L [id number] ####[facility] ([facility]ER)[address] [place] [address] Glucose [Mass/Vol] 106 mg/dL High 70-105 [facility] Comment on above: Order Comment: Waive d Testing in the ED is performed under the ED CLIA certificate #[id number]. Result Comment: nhay man Performed By: #### L [id number] ####[facility] ([facility]ER)[address] [place] [address] Glucose [Mass/Vol] 113 mg/dL High 70-105 [facility] Comment on above: Order Comment: Waive d Testing in the ED is performed under the ED CLIA certificate #[id number]. Result Comment: nhay man Performed By: #### L [id number] ####[facility] ([facility]ER)[address] [place] [address] Glucose [Mass/Vol] 118 mg/dL High 70-105 [facility] Comment on above: Order Comment: Waive d Testing in the ED is performed under the ED CLIA certificate #[id number]. Result Comment: nhay man Performed By: #### L [id number] ####[facility] ([facility]ER)[address] [place] [address] Glucose [Mass/Vol] 75 mg/dL Normal 70-105 [facility] Comment on above: Order Comment: Waive d Testing in the ED is performed under the ED CLIA certificate #[id number]. Result Comment: nhay man Performed By: #### L [id number] ####[facility] ([facility]ER)[address] [place] [address] Glucose [Mass/Vol] 163 mg/dL High 70-105 [facility] Comment on above: Order Comment: Waive d Testing in the ED is performed under the ED CLIA certificate #[id number]. Result Comment: than sen2 Performed By: #### L [id number] ####[facility] ([facility]ER)[address] [place] [address] Glucose [Mass/Vol] 176 mg/dL High 70-105 [facility] Comment on above: Order Comment: Waive d Testing in the ED is performed under the ED CLIA certificate #[id number]. Result Comment: than sen2 Performed By: #### L [id number] ####[facility] (AKER)[address] [place] [address] Glucose [Mass/Vol] 147 mg/dL High 70-105 [facility] Comment on above: Order Comment: Waive d Testing in the ED is performed under the ED CLIA certificate #[id number]. Result Comment: kste [email or web address] Performed By: #### L [id number] ####[facility] ([facility])[address] [place] [address] Glucose [Mass/Vol] 199 mg/dL High 70-105 [facility] Comment on above: Order Comment: Waive d Testing in the ED is performed under the ED CLIA certificate #[id number]. Result Comment: kste [email or web address] Performed By: #### L [id number] ####[facility] ([facility]ER)[address] [place] [address] Glucose [Mass/Vol] 202 mg/dL High 70-105 [facility] Comment on above: Order Comment: Waive d Testing in the ED is performed under the ED CLIA certificate #[id number]. Result Comment: than sen2 Performed By: #### L [id number] ####[facility] ([facility]ER)[address] [place] [address] Glucose [Mass/Vol] 233 mg/dL High 70-105 [facility] Comment on above: Order Comment: Waive d Testing in the ED is performed under the ED CLIA certificate #[id number]. Result Comment: than sen2 Performed By: #### L [id number] ####[facility] ([facility]ER)[address] [place] [address] Glucose [Mass/Vol] 253 mg/dL High 70-105 [facility] Comment on above: Order Comment: Waive d Testing in the ED is performed under the ED CLIA certificate #[id number]. Result Comment: kste [email or web address] Performed By: #### L [id number] ####[facility] ([facility])[address] [place] [address] Glucose [Mass/Vol] 279 mg/dL High 70-105 [facility] Comment on above: Order Comment: Waive d Testing in the ED is performed under the ED CLIA certificate #[id number]. Result Comment: than sen2 Performed By: #### L [id number] ####[facility] ([facility])[address] [place] [address] Glucose [Mass/Vol] 270 mg/dL High 70-105 [facility] Comment on above: Order Comment: Waive d Testing in the ED is performed under the ED CLIA certificate #[id number]. Result Comment: than sen2 Performed By: #### L [id number] ####[facility] ([facility])[address] [place] [address] Glucose [Mass/Vol] 267 mg/dL High 70-105 [facility] Comment on above: Order Comment: Waive d Testing in the ED is performed under the ED CLIA certificate #[id number]. Result Comment: [email or web address] [email or web address] Performed By: #### L [id number] ####[facility] ([facility]ER)[address] [place] [address] POTASSIUM, WHOLE BLOODon Potassium [Moles/Vol] 4.4 mmol/L Normal 3.5-5.1 [facility] Comment on above: Performed By: #### P OTASSIUM, WHOLE BLOOD ####[facility] [id number] [place] [address] [place] SODIUM, WHOLE BLOODon 2022 SODIUM, WHOLE BLOOD 141 Normal 136-145 [facility] Comment on above: Performed By: #### S ODIUM, WHOLE BLOOD ####[facility] [id number] [place] [address] [place] TROPONIN Ion 04-24-2023 Troponin I.cardiac [Mass/Vol] 34.92 ng/mL Critically high 0.00-0.04 [facility] Comment on above: Result Comment: Prev ious result verified on 04/23/2023 2259 on specimen/case [id number] called with component Troponin I for procedure Troponin I with value 22.65 ng/mL. Performed By: #### L [id number] ####[facility] ([facility])[address] [place] [address] 30on 04-23-2023 30 Normal [facility] 30 Normal [facility] AMYLASEon 04-23-2023 Amylase [Catalytic activity/Vol] 86 U/L Normal 29-103 [facility] Comment on above: Performed By: #### L [id number] ####[facility] ([facility])[address] [place] [address] APTTon 04-23-2023 ACTIVATED PARTIAL THROMBOPLASTIN TIME IN PPP BY COAGULATION ASSAY 45.1 Seconds High 25.0-35.0 [facility] Comment on above: Result Comment: Clin ical significance of the APTT is questionable in the presence of heparin. Performed By: #### L [id number] ####[facility] ([facility])[address] [place] [address] ACTIVATED PARTIAL THROMBOPLASTIN TIME IN PPP BY COAGULATION ASSAY 49.0 Seconds High 25.0-35.0 [facility] Comment on above: Result Comment: Clin ical significance of the APTT is questionable in the presence of heparin. Performed By: #### L [id number] ####[facility] ([facility])[address] [place] [address] ARTERIAL BLOOD GAS WITH IONI ZED CALCIUMon 04-23-2023 Base excess Calc (Bld) [Moles/Vol] -16.45624 mmol/L Low -2.0-3.0 [facility] Comment on above: Performed By: #### L [id number] ####[facility] [id number] [place] [address] [facility] CALCIUM IONIZED (MMOL/L) IN BLOOD 1.15 mmol/L Normal 1.15-1.33 [facility] Comment on above: Performed By: #### L [id number] ####[facility] [id number] [place] [address] [facility] CO2 (Bld) [Partial pressure] 20 mm[Hg] Invalid Interpretation Code 35-48 [facility] Comment on above: Performed By: #### L [id number] ####[facility] [id number] [place] [address] [facility] HCO3 (Bld) [Moles/Vol] 8.8 mmol/L Low 21.0-28.0 [facility] Comment on above: Performed By: #### L [id number] ####[facility] [id number] [place] [address] [place] LPM 2 Normal [facility] Comment on above: Performed By: #### L [id number] ####[facility] [id number] [place] [address] [facility] Oxygen (Bld) [Partial pressure] 67 mm[Hg] Low 83-100 [facility] Comment on above: Performed By: #### L [id number] ####[facility] [id number] [place] [address] [facility] OXYGEN SATURATION (%) IN ARTERIAL BLOOD 93.6 % Low 94.0-98.0 [facility] Comment on above: Performed By: #### L [id number] ####[facility] [id number] [place] [address] [facility] pH (Bld) 7.25 [pH] Low 7.35-7.45 [facility] Comment on above: Performed By: #### L [id number] ####[facility] [id number] [place] [address] [facility] SOURCE OF OXYGEN Nasal cannula Normal Unive [facility] Comment on above: Performed By: #### L [id number] ####[facility] [id number] [place] [address] [place] Base excess Calc (Bld) [Moles/Vol] -15.29959 mmol/L Low -2.0-3.0 [facility] Comment on above: Order Comment: On ar rival to CVU Performed By: #### L [id number] ####[facility] [id number] [place] [address] [place] CALCIUM IONIZED (MMOL/L) IN BLOOD 1.16 mmol/L Normal 1.15-1.33 [facility] Comment on above: Order Comment: On ar rival to CVU Performed By: #### L [id number] ####[facility] [id number] [place] [address] [facility] CO2 (Bld) [Partial pressure] 21 mm[Hg] Invalid Interpretation Code 35-48 [facility] Comment on above: Order Comment: On ar rival to CVU Performed By: #### L [id number] ####[facility] [id number] [place] [address] [place] HCO3 (Bld) [Moles/Vol] 9.6 mmol/L Low 21.0-28.0 [facility] Comment on above: Order Comment: On ar rival to CVU Performed By: #### L [id number] ####[facility] [id number] [place] [address] [place] Oxygen (Bld) [Partial pressure] 63 mm[Hg] Low 83-100 [facility] Comment on above: Order Comment: On ar rival to CVU Performed By: #### L [id number] ####[facility] [id number] [place] [address] [place] OXYGEN SATURATION (%) IN ARTERIAL BLOOD 92.2 % Low 94.0-98.0 [facility] Comment on above: Order Comment: On ar rival to CVU Performed By: #### L [id number] ####[facility] [id number] [place] [address] [place] pH (Bld) 7.27 [pH] Low 7.35-7.45 [facility] Comment on above: Order Comment: On ar rival to CVU Performed By: #### L [id number] ####[facility] [id number] [place] [address] [facility] SOURCE OF OXYGEN Nasal cannula Normal [facility] Comment on above: Order Comment: On ar rival to CVU Performed By: #### L [id number] ####[facility] [id number] [place] [address] [facility] Anesthesiaon 04-23-2023 Anesthesia [id number] Ortiz,Gui 1955 M Date Provider Department Center 04/23/2023 [facility] S[facility] None Family History Family history unknown: Yes Normal [facility] BASIC METABOLIC PANELon 11-0 Anion gap [Moles/Vol] 10 mmol/L Normal 7-20 [facility] Comment on above: Performed By: #### L [id number] ####[facility] ([facility]AKER)[address] [place] [address] Calcium [Mass/Vol] 8.4 mg/dL Low 8.6-10.3 [facility] Comment on above: Performed By: #### L [id number] ####[facility] ([facility]AKER)[address] [place] [address] Chloride [Moles/Vol] 114 mmol/L High 98-107 [facility] Comment on above: Performed By: #### L [id number] ####[facility] ([facility]AKER)[address] [place] [address] CO2 [Moles/Vol] 25 mmol/L Normal 21-31 [facility] Comment on above: Performed By: #### L [id number] ####[facility] ([facility]AKER)[address] [place] [address] Creatinine [Mass/Vol] 0.86 mg/dL Normal 0.70-1.30 [facility] Comment on above: Performed By: #### L [id number] ####[facility] (BEAKER)[address] [place] [address] GLOMERULAR FILTRATION RATE ML/MIN/1.73 SQ M.PREDICTED 93.7 mL/min/1.73m*2 Normal >60.0 [facility] Comment on above: Result Comment: The [facility]???s estimated glomerular filtration rate (eGFR) will no [...] of individuals. Performed By: #### L [id number] ####[facility] ([facility])[address] [place] [address] Glucose [Mass/Vol] 86 mg/dL Normal 70-100 [facility] Comment on above: Performed By: #### L [id number] ####[facility] ([facility])[address] [place] [address] Potassium [Moles/Vol] 3.9 mmol/L Normal 3.5-5.1 [facility] Comment on above: Performed By: #### L [id number] ####[facility] ([facility])[address] [place] [address] Sodium [Moles/Vol] 145 mmol/L Normal 136-145 [facility] Comment on above: Performed By: #### L [id number] ####[facility] ([facility] [facility])[address] [place] [address] Urea nitrogen [Mass/Vol] 19 mg/dL Normal 7-25 [facility] Comment on above: Performed By: #### L [id number] ####[facility] ([facility])[address] [place] [address] UREA NITROGEN/CREATININ E (MASS RATIO) IN SER/PLAS 22.1 Normal [facility] Comment on above: Performed By: #### L [id number] ####[facility] ([facility])[address] [place] [address] CALCIUM, IONIZEDon 3 CALCIUM IONIZED (MMOL/L) IN BLOOD 1.21 mmol/L Normal 1.15-1.33 [facility] Comment on above: Performed By: #### C ALCIUM, IONIZED ####[facility] [id number] [place] [address] [place] CALCIUM IONIZED (MMOL/L) IN BLOOD 1.19 mmol/L Normal 1.15-1.33 [facility] Comment on above: Performed By: #### C ALCIUM, IONIZED ####[facility] [id number] [place] [address] [facility] CALCIUM IONIZED (MMOL/L) IN BLOOD 1.07 mmol/L Low 1.15-1.33 [facility] Comment on above: Performed By: #### C ALCIUM, IONIZED ####[facility] [id number] [place] [address] [place] CBCon 04-23-2023 Erythrocyte distribution width (RBC) [Ratio] 13.3 % Normal 11.5-15.0 [facility] Comment on above: Performed By: #### L [id number] ####[facility] ([facility])[address] [place] [address] ERYTHROCYTE MEAN CORPUSCULAR HEMOGLOBIN CONCENTRATION (G/DL) BY AUTOMATED 34.2 g/dL Normal 32.0-35.0 [facility] Comment on above: Performed By: #### L [id number] ####[facility] ([facility])[address] [place] [address] Hematocrit (Bld) [Volume fraction] 22.5 % Low 39.0-55.0 [facility] Comment on above: Performed By: #### L [id number] ####[facility] ([facility]ER)[address] [place] [address] Hemoglobin (Bld) [Mass/Vol] 7.7 g/dL Low 13.0-17.0 [facility] Comment on above: Result Comment: Resu lts checked Performed By: #### L [id number] ####[facility] ([facility])[address] [place] [address] IMMATURE PLATELET FRACTION % 2.5 % Normal 0.8-6.3 [facility] Comment on above: Performed By: #### L [id number] ####[facility] ([facility])[address] [place] [address] MCH (RBC) [Entitic mass] 31.3 pg Normal 27.0-33.0 [facility] Comment on above: Performed By: #### L [id number] ####[facility] ([facility])[address] [place] [address] MCV (RBC) [Entitic vol] 91.5 fL Normal 82.0-98.0 [facility] Comment on above: Performed By: #### L [id number] ####[facility] ([facility])[address] [place] [address] PLATELETS (10*3/UL) IN BLOOD AUTOMATED COUNT 80 10*3/uL Low 150-400 [facility] Comment on above: Result Comment: Plt est 74 ok Performed By: #### L [id number] ####[facility] ([facility])[address] [place] [address] RBC (Bld) [#/Vol] 2.46 10*6/uL Low 4.20-5.70 [facility] Comment on above: Performed By: #### L [id number] ####[facility] ([facility])[address] [place] [address] WBC (Bld) [#/Vol] 7.84 10*3/uL Normal 4.00-10.60 [facility] Comment on above: Performed By: #### L [id number] ####[facility] ([facility])[address] [place] [address] CBC WITH AUTO DIFFERENTIALon 04-23-2023 Erythrocyte distribution width (RBC) [Ratio] 14.0 % Normal 11.5-15.0 [facility] Comment on above: Performed By: #### L [id number] ####[facility] ([facility])[address] [place] [address] ERYTHROCYTE MEAN CORPUSCULAR HEMOGLOBIN CONCENTRATION (G/DL) BY AUTOMATED 33.9 g/dL Normal 32.0-35.0 [facility] Comment on above: Performed By: #### L [id number] ####[facility] ([facility])[address] [place] [address] Hematocrit (Bld) [Volume fraction] 18.0 % Low 39.0-55.0 [facility] Comment on above: Performed By: #### L [id number] ####[facility] ([facility])[address] [place] [address] Hemoglobin (Bld) [Mass/Vol] 6.1 g/dL Low 13.0-17.0 [facility] Comment on above: Performed By: #### L [id number] ####[facility] ([facility])[address] [place] [address] IMMATURE PLATELET FRACTION % 3.6 % Normal 0.8-6.3 [facility] Comment on above: Performed By: #### L [id number] ####[facility] ([facility])[address] [place] [address] MCH (RBC) [Entitic mass] 31.4 pg Normal 27.0-33.0 [facility] Comment on above: Performed By: #### L [id number] ####[facility] ([facility])[address] [place] [address] MCV (RBC) [Entitic vol] 92.8 fL Normal 82.0-98.0 [facility] Comment on above: Performed By: #### L [id number] ####[facility] ([facility])[address] [place] [address] NRBC (PER 100 WBCS) BY AUTOMATED COUNT 0.0 % Normal 0 [facility] Comment on above: Performed By: #### L [id number] ####[facility] ([facility])[address] [place] [address] PLATELETS (10*3/UL) IN BLOOD AUTOMATED COUNT 68 10*3/uL Low 150-400 [facility] Comment on above: Performed By: #### L [id number] ####[facility] ([facility])[address] [place] [address] RBC (Bld) [#/Vol] 1.94 10*6/uL Low 4.20-5.70 [facility] Comment on above: Performed By: #### L [id number] ####[facility] ([facility])[address] [place] [address] WBC (Bld) [#/Vol] 12.79 10*3/uL High 4.00-10.60 [facility] Comment on above: Performed By: #### L [id number] ####[facility] ([facility])[address] [place] [address] CK TOTAL AND CKMBon 04-23-20 CREATINE KINASE (U/L) IN SER/PLAS 4110.0 U/L High 30.0-223.0 [facility] Comment on above: Performed By: #### L [id number] ####[facility] ([facility])[address] [place] [address] CREATINE KINASE MB/CREATINE KINASE TOTAL BY CALCULATION 2.9 High <=1.9 [facility] Comment on above: Performed By: #### L [id number] ####[facility] ([facility])[address] [place] [address] CREATINE KINASE-MB (NG/ML) IN SER/PLAS 122.5 ng/mL High 0.0-5.0 [facility] Comment on above: Performed By: #### L [id number] ####[facility] ([facility])[address] [place] [address] CO-OXIMETRYon 04-23-2023 CARBOXYHEMOGLOBIN/ HEMOGLOBIN TOTAL % IN BLOOD 1.3 % Normal [facility] Comment on above: Performed By: #### L [id number] ####[facility] [id number] [place] [address] [facility] Hemoglobin (Bld) [Mass/Vol] 7.8 g/dL Normal [facility] Comment on above: Performed By: #### L [id number] ####[facility] [id number] [place] [address] [place] METHEMOGLOBIN/100 IN BLOOD 1.0 % Normal 0.0-1.5 [facility] Comment on above: Performed By: #### L [id number] ####[facility] [id number] [place] [address] [place] Oxygen saturation in Blood 65.8 % Normal [facility] Comment on above: Performed By: #### L [id number] ####[facility] [id number] [facility] [place] [address] [facility] OXYGENATED HEMOGLOBIN IN BLOOD 64.2 % Normal [facility] Comment on above: Performed By: #### L [id number] ####[facility] [id number] [place] [address] [facility] COMPREHENSIVE METABOLIC PANE Roddy 04-23-2023 Albumin [Mass/Vol] 3.6 g/dL Normal 3.5-5.7 [facility] Comment on above: Performed By: #### L [id number] ####[facility] ([facility])[address] [place] [address] ALP [Catalytic activity/Vol] 34 U/L Normal 34-104 [facility] Comment on above: Performed By: #### L [id number] ####[facility] ([facility])[address] [place] [address] ALT [Catalytic activity/Vol] 22 U/L Normal 7-52 [facility] Comment on above: Performed By: #### L [id number] ####[facility] ([facility]ER)[address] [place] [address] Anion gap [Moles/Vol] 21 mmol/L High 7-20 [facility] Comment on above: Performed By: #### L [id number] ####[facility] ([facility]ER)[address] [place] [address] AST [Catalytic activity/Vol] 132 U/L High 13-39 [facility] Comment on above: Performed By: #### L [id number] ####[facility] ([facility])[address] [address] Bilirubin [Mass/Vol] 0.5 mg/dL Normal 0.3-1.0 [facility] Comment on above: Performed By: #### L [id number] ####[facility] ([facility])[address] [place] [address] Calcium [Mass/Vol] 8.1 mg/dL Low 8.6-10.3 [facility] Comment on above: Performed By: #### L [id number] ####[facility] ([facility])[address] [place] [address] Chloride [Moles/Vol] 109 mmol/L High 98-107 [facility] Comment on above: Performed By: #### L [id number] ####[facility] ([facility])[address] [place] [address] CO2 [Moles/Vol] 20 mmol/L Low 21-31 [facility] Comment on above: Performed By: #### L [id number] ####[facility] ([facility])[address] [place] [address] Creatinine [Mass/Vol] 1.16 mg/dL Normal 0.70-1.30 [facility] Comment on above: Performed By: #### L [id number] ####[facility] ([facility])[address] [place] [address] GLOMERULAR FILTRATION RATE ML/MIN/1.73 SQ M.PREDICTED 68.2 mL/min/1.73m*2 Normal >60.0 [facility] Comment on above: Result Comment: The [facility]???s estimated glomerular filtration rate (eGFR) will no [...] of individuals. Performed By: #### L [id number] ####[facility] ([facility])[address] [place] [address] Glucose [Mass/Vol] 255 mg/dL High 70-100 [facility] Comment on above: Performed By: #### L [id number] ####[facility] ([facility])[address] [place] [address] Potassium [Moles/Vol] 4.4 mmol/L Normal 3.5-5.1 [facility] Comment on above: Performed By: #### L [id number] ####[facility] ([facility])[address] [place] [address] Protein [Mass/Vol] 4.7 g/dL Low 6.0-8.3 [facility] Comment on above: Performed By: #### L [id number] ####[facility] ([facility])[address] [place] [address] Sodium [Moles/Vol] 146 mmol/L High 136-145 [facility] Comment on above: Performed By: #### L [id number] ####[facility] ([facility])[address] [place] [address] Urea nitrogen [Mass/Vol] 21 mg/dL Normal 7-25 [facility] Comment on above: Performed By: #### L [id number] ####[facility] ([facility])[address] [place] [address] UREA NITROGEN/CREATININ E (MASS RATIO) IN SER/PLAS 18.1 [facility] Comment on above: Performed By: #### L [id number] ####[facility] ([facility])[address] [place] [address] CONSULTon 04-23-2023 CONSULT Normal [facility] CONSULT Normal [facility] FIBRINOGENon 04-23-2023 Magnesium [Mass/Vol] 258 mg/dL Normal 150-425 [facility] Comment on above: Performed By: #### L [id number] ####[facility] ([facility])[address] [place] [address] LACTIC ACID WITH 4 HOUR REFL EXon 04-23-2023 LACTATE (MMOL/L) IN SER/PLAS 12.1 mmol/L Critically high 0.5-2.2 [facility] Comment on above: Result Comment: Prev ious result verified on 04/22/2023 2146 on specimen/case [id number] called with component Lactate for procedure Lactic acid, plasma with value 2.6 mmol/L. Performed By: #### L [id number] ####[facility] ([facility])[address] [place] [address] LACTIC ACID, PLASMAon 2022 LACTATE (MMOL/L) IN SER/PLAS 2.2 mmol/L Normal 0.5-2.2 [facility] Comment on above: Performed By: #### L [id number] ####[facility] ([facility])[address] [place] [address] LIPASEon 04-23-2023 LIPASE (U/L) IN SER/PLAS 12 U/L Normal 11-82 [facility] Comment on above: Performed By: #### L [id number] ####[facility] ([facility])[address] [place] [address] MAGNESIUMon 04-23-2023 Magnesium [Mass/Vol] 1.8 mg/dL Low 1.9-2.7 [facility] Comment on above: Performed By: #### L [id number] ####[facility] ([facility])[address] [place] [address] MANUAL DIFFERENTIALon 2022 BASOPHILS (10*3/UL) IN BLOOD BY CALCULATION 0.01 10*3/uL Normal 0.00-0.20 [facility] Comment on above: Performed By: #### L [id number] ####[facility] ([facility])[address] [place] [address] BASOPHILS/100 LEUKOCYTES IN BLOOD BY AUTOMATED COUNT 0.1 % Normal 0.0-1.0 [facility] Comment on above: Performed By: #### L [id number] ####[facility] ([facility])[address] [place] [address] EOSINOPHILS (10*3/UL) IN BLOOD BY CALCULATION 0.00 10*3/uL Normal 0.00-0.50 [facility] Comment on above: Performed By: #### L [id number] ####[facility] ([facility])[address] [place] [address] EOSINOPHILS/100 LEUKOCYTES IN BLOOD BY AUTOMATED COUNT 0.0 % Normal 0.0-6.0 [facility] Comment on above: Performed By: #### L [id number] ####[facility] ([facility])[address] [place] [address] IMMATURE GRANULOCYTES (10*3/UL) IN BLOOD BY CALCULATION 0.09 10*3/uL Normal 0.00-0.20 [facility] Comment on above: Performed By: #### L [id number] ####[facility] ([facility])[address] [place] [address] IMMATURE GRANULOCYTES/100 LEUKOCYTES IN BLOOD BY AUTOMATED COUNT 0.7 % Normal 0.0-1.0 [facility] Comment on above: Performed By: #### L [id number] ####[facility] ([facility])[address] [place] [address] LYMPHOCYTES (10*3/UL) IN BLOOD BY CALCULATION 0.72 10*3/uL Low 1.20-4.00 [facility] Comment on above: Performed By: #### L [id number] ####[facility] ([facility])[address] [place] [address] LYMPHOCYTES/100 LEUKOCYTES IN BLOOD BY AUTOMATED COUNT 5.6 % Low 20.0-45.0 [facility] Comment on above: Performed By: #### L [id number] ####[facility] ([facility])[address] [place] [address] MONOCYTES (10*3/UL) IN BLOOD BY CALCUATION 0.70 10*3/uL Normal 0.10-1.00 [facility] Comment on above: Performed By: #### L [id number] ####[facility] ([facility])[address] [place] [address] MONOCYTES/100 LEUKOCYTES IN BLOOD BY AUTOMATED COUNT 5.5 % Normal 5.0-12.0 [facility] Comment on above: Performed By: #### L [id number] ####[facility] ([facility])[address] [place] [address] NEUTROPHILS (10*3/UL) IN BLOOD BY CALCULATION 11.3 10*3/uL High 1.6-7.6 [facility] Comment on above: Performed By: #### L [id number] ####[facility] ([facility])[address] [place] [address] NEUTROPHILS/100 LEUKOCYTES IN BLOOD BY AUTOMATED COUNT 88.1 % High 40.0-72.0 [facility] Comment on above: Performed By: #### L [id number] ####[facility] ([facility])[address] [place] [address] MYOGLOBIN, SERUMon 3 MYOGLOBIN (NG/ML) IN SER/PLAS 1832 ng/mL High 0-90 [facility] Comment on above: Result Comment: A DO UBLING OF VALUES FROM SERIAL BLOOD COLLECTIONS (1 - 2 HOURS APART) IS MORE INDICATIVE OF A M.I. THAN THE ABSOLUTE VALUE. Performed By: #### L [id number] ####[facility] ([facility])[address] [place] [address] PHOSPHORUSon 04-23-2023 Magnesium [Mass/Vol] 3.1 mg/dL Normal 2.5-5.0 [facility] Comment on above: Performed By: #### L [id number] ####[facility] ([facility])[address] [place] [address] POCT GLUCOSE METER UNSOLICIT ED RESULTSon 04-23-2023 Glucose [Mass/Vol] 267 mg/dL High 70-105 [facility] Comment on above: Order Comment: Waive d Testing in the ED is performed under the ED CLIA certificate #[id number]. Result Comment: than sen2 Performed By: #### L [id number] ####[facility] ([facility]ER)[address] [place] [address] Glucose [Mass/Vol] 138 mg/dL High 70-105 [facility] Comment on above: Order Comment: Waive d Testing in the ED is performed under the ED CLIA certificate #[id number]. Result Comment: nhay man Performed By: #### L [id number] ####[facility] (AKER)[address] [place] [address] Glucose [Mass/Vol] 92 mg/dL Normal 70-105 [facility] Comment on above: Order Comment: Waive d Testing in the ED is performed under the ED CLIA certificate #[id number]. Result Comment: nhay man Performed By: #### L [id number] ####[facility] ([facility])[address] [place] [address] Glucose [Mass/Vol] 101 mg/dL Normal 70-105 [facility] Comment on above: Order Comment: Waive d Testing in the ED is performed under the ED CLIA certificate #[id number]. Result Comment: vsan [email or web address] Performed By: #### L [id number] ####[facility] ([employer])[address] [place] [address] Glucose [Mass/Vol] 91 mg/dL Normal 70-105 [facility] Comment on above: Order Comment: Waive d Testing in the ED is performed under the ED CLIA certificate #[id number]. Result Comment: vsan [email or web address] Performed By: #### L [id number] ####[facility] ([employer])[address] [place] [address] Glucose [Mass/Vol] 114 mg/dL High 70-105 [facility] Comment on above: Order Comment: Waive d Testing in the ED is performed under the ED CLIA certificate #[id number]. Result Comment: vsan [email or web address] Performed By: #### L [id number] ####[facility] (BEAKER)[address] [place] [address] Glucose [Mass/Vol] 123 mg/dL High 70-105 [facility] Comment on above: Order Comment: Waive d Testing in the ED is performed under the ED CLIA certificate #[id number]. Result Comment: vsan [email or web address] Performed By: #### L [id number] ####[facility] ([facility]AKER)[address] [place] [address] Glucose [Mass/Vol] 142 mg/dL High 70-105 [facility] Comment on above: Order Comment: Waive d Testing in the ED is performed under the ED CLIA certificate #[id number]. Result Comment: vsan [email or web address] Performed By: #### L [id number] ####[facility] (BEAKER)[address] [place] [address] Glucose [Mass/Vol] 152 mg/dL High 70-105 [facility] Comment on above: Order Comment: Waive d Testing in the ED is performed under the ED CLIA certificate #[id number]. Result Comment: ahoo [email or web address] Performed By: #### L [id number] ####[facility] ([facility]ER)[address] [place] [address] Glucose [Mass/Vol] 167 mg/dL High 70-105 [facility] Comment on above: Order Comment: Waive d Testing in the ED is performed under the ED CLIA certificate #[id number]. Result Comment: vsan [email or web address] Performed By: #### L [id number] ####[facility] ([facility]ER)[address] [place] [address] POTASSIUM, WHOLE BLOODon Potassium [Moles/Vol] 4.3 mmol/L Normal 3.5-5.1 [facility] Comment on above: Performed By: #### P OTASSIUM, WHOLE BLOOD ####[facility] [id number] [place] [address] [place] Potassium [Moles/Vol] 4.1 mmol/L Normal 3.5-5.1 [facility] Comment on above: Performed By: #### P OTAPIPERIUM, WHOLE BLOOD ####[facility] [id number] [place], [place] [address] Potassium [Moles/Vol] 4.3 mmol/L Normal 3.5-5.1 [facility] Comment on above: Performed By: #### P OTASSIUM, WHOLE BLOOD ####[facility] [id number] PROTIME-INRon 04-23-2023 INR IN PPP BY COAGULATION ASSAY 1.98 High 0.90-1.10 [facility] Comment on above: Result Comment: ACCC P [...] CHEST 1995;108:[id number]. Performed By: #### L [id number] ####[facility] (BEAKER)[address] [place] [address] PROTHROMBIN TIME (PT) IN PPP BY COAGULATION ASSAY 22.6 Seconds High 12.3-14.8 [facility] Comment on above: Performed By: #### L [id number] ####[facility] (BEAKER)[address] [place] [address] INR IN PPP BY COAGULATION ASSAY 1.47 High 0.90-1.10 [facility] Comment on above: Result Comment: ACCC P [...] CHEST 1995;[id number]. Performed By: #### L [id number] ####[facility] ([employer])[address] [place] [address] PROTHROMBIN TIME (PT) IN PPP BY COAGULATION ASSAY 17.9 Seconds High 12.3-14.8 [facility] Comment on above: Performed By: #### L [id number] ####[facility] (BEAKER)[address] [place] [address] SODIUM, WHOLE BLOODon 2022 SODIUM, WHOLE BLOOD 141 Normal 136-145 [facility] Comment on above: Performed By: #### S ODIUM, WHOLE BLOOD ####[facility] [id number] [place] [address] [facility] SODIUM, WHOLE BLOOD 143 Normal 136-145 [facility] Comment on above: Performed By: #### S ODIUM, WHOLE BLOOD ####[facility] [id number] [place] [address] [place] SODIUM, WHOLE BLOOD 144 Normal 136-145 [facility] Comment on above: Performed By: #### S ODIUM, WHOLE BLOOD ####[facility] [id number] [place] [address] [place] TROPONIN Ion 04-23-2023 Troponin I.cardiac [Mass/Vol] 22.65 ng/mL Critically high 0.00-0.04 [facility] Comment on above: Result Comment: JYOTI CORONADO INITIAL CRITICAL HIGH; RESPUN AND RETESTED Performed By: #### L [id number] ####[facility] ([employer])[address] [place] [address] ANESon 04-22-2023 ANES Normal [facility] APTTon 04-22-2023 ACTIVATED PARTIAL THROMBOPLASTIN TIME IN PPP BY COAGULATION ASSAY 43.4 Seconds High 25.0-35.0 [facility] Comment on above: Result Comment: Clin ical significance of the APTT is questionable in the presence of heparin. Performed By: #### L [id number] ####[facility] ([employer])[address] [place] [address] ACTIVATED PARTIAL THROMBOPLASTIN TIME IN PPP BY COAGULATION ASSAY 36.9 Seconds High 25.0-35.0 [facility] Comment on above: Result Comment: Clin ical significance of the APTT is questionable in the presence of heparin. Performed By: #### L [id number] ####[facility] ([employer])[address] [place] [address] ACTIVATED PARTIAL THROMBOPLASTIN TIME IN PPP BY COAGULATION ASSAY 40.3 Seconds High 25.0-35.0 [facility] Comment on above: Order Comment: Pre-o p diagnosis:NSTEMI (non-ST elevated myocardial infarction) (CMS/HCC) [I21.4]Acute non-ST segment elevation myocardial infarction (CMS/HCC) [I21.4]Coronary artery disease, unspecified vessel or lesion type, unspecified whether angina present, unspecified whether [place] or transplanted heart [I25.10] Result Comment: Clin ical significance of the APTT is questionable in the presence of heparin. Performed By: #### L [id number] ####[facility] ([facility])[address] [place] [address] BASIC METABOLIC PANELon 11-0 Anion gap [Moles/Vol] 9 mmol/L Normal 7-20 [facility] Comment on above: Performed By: #### L [id number] ####[facility] (BEAKER)[address] [place] [address] Calcium [Mass/Vol] 7.9 mg/dL Low 8.6-10.3 [facility] Comment on above: Performed By: #### L [id number] ####[facility] ([facility])[address] [place] [address] Chloride [Moles/Vol] 114 mmol/L High 98-107 [facility] Comment on above: Performed By: #### L [id number] ####[facility] ([facility])[address] [place] [address] CO2 [Moles/Vol] 25 mmol/L Normal 21-31 [facility] Comment on above: Performed By: #### L [id number] ####[facility] ([facility])[address] [place] [address] Creatinine [Mass/Vol] 0.86 mg/dL Normal 0.70-1.30 [facility] Comment on above: Performed By: #### L [id number] ####[facility] ([facility])[address] [place] [address] GLOMERULAR FILTRATION RATE ML/MIN/1.73 SQ M.PREDICTED 93.7 mL/min/1.73m*2 Normal >60.0 [facility] Comment on above: Result Comment: The [facility]???s estimated glomerular filtration rate (eGFR) will no [...] of individuals. Performed By: #### L [id number] ####[facility] (BEAKER)[address] [place] [address] Glucose [Mass/Vol] 162 mg/dL High 70-100 [facility] Comment on above: Performed By: #### L [id number] ####[facility] (BEAKER)[address] [place] [address] Potassium [Moles/Vol] 4.2 mmol/L Normal 3.5-5.1 [facility] Comment on above: Performed By: #### L [id number] ####[facility] ([facility])[address] [place] [address] Sodium [Moles/Vol] 144 mmol/L Normal 136-145 [facility] Comment on above: Performed By: #### L [id number] ####[facility] ([facility])[address] [place] [address] Urea nitrogen [Mass/Vol] 19 mg/dL Normal 7-25 [facility] Comment on above: Performed By: #### L [id number] ####[facility] ([facility])[address] [place] [address] UREA NITROGEN/CREATININ E (MASS RATIO) IN SER/PLAS 22.1 Normal [facility] Comment on above: Performed By: #### L [id number] ####[facility] (BEAKER)[address] [place] [address] Anion gap [Moles/Vol] 7 mmol/L Normal 7-20 [facility] Comment on above: Performed By: #### L [id number] ####[facility] (BEAKER)[address] [place] [address] Calcium [Mass/Vol] 8.2 mg/dL Low 8.6-10.3 [facility] Comment on above: Performed By: #### L [id number] ####[facility] (BEAKER)[address] [place] [address] Chloride [Moles/Vol] 114 mmol/L High 98-107 [facility] Comment on above: Performed By: #### L [id number] ####[facility] ([facility])[address] [place] [address] CO2 [Moles/Vol] 29 mmol/L Normal 21-31 [facility] Comment on above: Performed By: #### L [id number] ####[facility] ([facility])[address] [place] [address] Creatinine [Mass/Vol] 0.77 mg/dL Normal 0.70-1.30 [facility] Comment on above: Performed By: #### L [id number] ####[facility] ([facility])[address] [place] [address] GLOMERULAR FILTRATION RATE ML/MIN/1.73 SQ M.PREDICTED 96.9 mL/min/1.73m*2 Normal >60.0 [facility] Comment on above: Result Comment: The [facility]???s estimated glomerular filtration rate (eGFR) will no [...] of individuals. Performed By: #### L [id number] ####[facility] ([facility])[address] [place] [address] Glucose [Mass/Vol] 142 mg/dL High 70-100 [facility] Comment on above: Performed By: #### L [id number] ####[facility] ([facility])[address] [place] [address] Potassium [Moles/Vol] 3.7 mmol/L Normal 3.5-5.1 [facility] Comment on above: Performed By: #### L [id number] ####[facility] ([facility])[address] [place] [address] Sodium [Moles/Vol] 146 mmol/L High 136-145 [facility] Comment on above: Performed By: #### L [id number] ####[facility] (BEAKER)[address] [place] [address] Urea nitrogen [Mass/Vol] 18 mg/dL Normal 7-25 [facility] Comment on above: Performed By: #### L [id number] ####[facility] ([facility])[address] [place] [address] UREA NITROGEN/CREATININ E (MASS RATIO) IN SER/PLAS 23.4 Normal [facility] Comment on above: Performed By: #### L [id number] ####[facility] ([facility])[address] [place] [address] Anion gap [Moles/Vol] 7 mmol/L Normal 7-20 [facility] Comment on above: Order Comment: Pre-o p diagnosis:NSTEMI (non-ST elevated myocardial infarction) (CMS/HCC) [I21.4]Acute non-ST segment elevation myocardial infarction (CMS/HCC) [I21.4]Coronary artery disease, unspecified vessel or lesion type, unspecified whether angina present, unspecified whether [place] or transplanted heart [I25.10] Performed By: #### L [id number] ####[facility] (BEAKER)[address] [place] [address] Calcium [Mass/Vol] 8.5 mg/dL Low 8.6-10.3 [facility] Comment on above: Order Comment: Pre-o p diagnosis:NSTEMI (non-ST elevated myocardial infarction) (CMS/HCC) [I21.4]Acute non-ST segment elevation myocardial infarction (CMS/HCC) [I21.4]Coronary artery disease, unspecified vessel or lesion type, unspecified whether angina present, unspecified whether [place] or transplanted heart [I25.10] Performed By: #### L [id number] ####[facility] (BEAKER)[address] [place] [address] Chloride [Moles/Vol] 116 mmol/L High 98-107 [facility] Comment on above: Order Comment: Pre-o p diagnosis:NSTEMI (non-ST elevated myocardial infarction) (CMS/HCC) [I21.4]Acute non-ST segment elevation myocardial infarction (CMS/HCC) [I21.4]Coronary artery disease, unspecified vessel or lesion type, unspecified whether angina present, unspecified whether [place] or transplanted heart [I25.10] Performed By: #### L [id number] ####[facility] ([facility]ER)[address] [place] [address] CO2 [Moles/Vol] 25 mmol/L Normal 21-31 [facility] Comment on above: Order Comment: Pre-o p diagnosis:NSTEMI (non-ST elevated myocardial infarction) (CMS/HCC) [I21.4]Acute non-ST segment elevation myocardial infarction (CMS/HCC) [I21.4]Coronary artery disease, unspecified vessel or lesion type, unspecified whether angina present, unspecified whether [place] or transplanted heart [I25.10] Performed By: #### L [id number] ####[facility] (BEAKER)[address] [place] [address] Creatinine [Mass/Vol] 0.82 mg/dL Normal 0.70-1.30 [facility] Comment on above: Order Comment: Pre-o p diagnosis:NSTEMI (non-ST elevated myocardial infarction) (CMS/HCC) [I21.4]Acute non-ST segment elevation myocardial infarction (CMS/HCC) [I21.4]Coronary artery disease, unspecified vessel or lesion type, unspecified whether angina present, unspecified whether [place] or transplanted heart [I25.10] Performed By: #### L [id number] ####[facility] ([facility])[address] [place] [address] GLOMERULAR FILTRATION RATE ML/MIN/1.73 SQ M.PREDICTED 95.1 mL/min/1.73m*2 Normal >60.0 [facility] Comment on above: Order Comment: Pre-o p diagnosis:NSTEMI (non-ST elevated myocardial infarction) (CMS/HCC) [I21.4]Acute non-ST segment elevation myocardial infarction (CMS/HCC) [I21.4]Coronary artery disease, unspecified vessel or lesion type, unspecified whether angina present, unspecified whether [place] or transplanted heart [I25.10] Result Comment: The [facility]???s estimated glomerular filtration rate (eGFR) will no [...] of individuals. Performed By: #### L [id number] ####[facility] ([employer])[address] [place] [address] Glucose [Mass/Vol] 198 mg/dL High 70-100 [facility] Comment on above: Order Comment: Pre-o p diagnosis:NSTEMI (non-ST elevated myocardial infarction) (CMS/HCC) [I21.4]Acute non-ST segment elevation myocardial infarction (CMS/HCC) [I21.4]Coronary artery disease, unspecified vessel or lesion type, unspecified whether angina present, unspecified whether [place] or transplanted heart [I25.10] Performed By: #### L [id number] ####[facility] (BEAKER)[address] [place] [address] Potassium [Moles/Vol] 3.1 mmol/L Low 3.5-5.1 [facility] Comment on above: Order Comment: Pre-o p diagnosis:NSTEMI (non-ST elevated myocardial infarction) (CMS/HCC) [I21.4]Acute non-ST segment elevation myocardial infarction (CMS/HCC) [I21.4]Coronary artery disease, unspecified vessel or lesion type, unspecified whether angina present, unspecified whether [place] or transplanted heart [I25.10] Performed By: #### L [id number] ####[facility] (BEAKER)[address] [place] [address] Sodium [Moles/Vol] 145 mmol/L Normal 136-145 [facility] Comment on above: Order Comment: Pre-o p diagnosis:NSTEMI (non-ST elevated myocardial infarction) (CMS/HCC) [I21.4]Acute non-ST segment elevation myocardial infarction (CMS/HCC) [I21.4]Coronary artery disease, unspecified vessel or lesion type, unspecified whether angina present, unspecified whether [place] or transplanted heart [I25.10] Performed By: #### L [id number] ####[facility] (BEAKER)[address] [place] [address] Urea nitrogen [Mass/Vol] 18 mg/dL Normal 7-25 [facility] Comment on above: Order Comment: Pre-o p diagnosis:NSTEMI (non-ST elevated myocardial infarction) (CMS/HCC) [I21.4]Acute non-ST segment elevation myocardial infarction (CMS/HCC) [I21.4]Coronary artery disease, unspecified vessel or lesion type, unspecified whether angina present, unspecified whether [place] or transplanted heart [I25.10] Performed By: #### L [id number] ####[facility] (BEAKER)[address] [place] [address] UREA NITROGEN/CREATININ E (MASS RATIO) IN SER/PLAS 22.0 Normal [facility] Comment on above: Order Comment: Pre-o p diagnosis:NSTEMI (non-ST elevated myocardial infarction) (CMS/HCC) [I21.4]Acute non-ST segment elevation myocardial infarction (CMS/HCC) [I21.4]Coronary artery disease, unspecified vessel or lesion type, unspecified whether angina present, unspecified whether [place] or transplanted heart [I25.10] Performed By: #### L [id number] ####[facility] (BEAKER)[address] [place] [address] CBCon 04-22-2023 Erythrocyte distribution width (RBC) [Ratio] 13.1 % Normal 11.5-15.0 [facility] Comment on above: Performed By: #### L [id number] ####[facility] (BEAKER)[address] [address] ERYTHROCYTE MEAN CORPUSCULAR HEMOGLOBIN CONCENTRATION (G/DL) BY AUTOMATED 34.7 g/dL Normal 32.0-35.0 [facility] Comment on above: Performed By: #### L [id number] ####[facility] ([facility])[address] [place] [address] Hematocrit (Bld) [Volume fraction] 32.6 % Low 39.0-55.0 [facility] Comment on above: Performed By: #### L [id number] ####[facility] ([facility])[address] [address] Hemoglobin (Bld) [Mass/Vol] 11.3 g/dL Low 13.0-17.0 [facility] Comment on above: Performed By: #### L [id number] ####[facility] ([facility])[address] [place] [address] MCH (RBC) [Entitic mass] 31.1 pg Normal 27.0-33.0 [facility] Comment on above: Performed By: #### L [id number] ####[facility] ([facility])[address] [place] [address] MCV (RBC) [Entitic vol] 89.8 fL Normal 82.0-98.0 [facility] Comment on above: Performed By: #### L [id number] ####[facility] ([facility])[address] [place] [address] PLATELETS (10*3/UL) IN BLOOD AUTOMATED COUNT 107 10*3/uL Low 150-400 [facility] Comment on above: Performed By: #### L [id number] ####[facility] ([facility])[address] [place] [address] RBC (Bld) [#/Vol] 3.63 10*6/uL Low 4.20-5.70 [facility] Comment on above: Performed By: #### L [id number] ####[facility] ([facility])[address] [place] [address] WBC (Bld) [#/Vol] 18.54 10*3/uL High 4.00-10.60 [facility] Comment on above: Performed By: #### L [id number] ####[facility] ([employer])[address] [place] [address] Erythrocyte distribution width (RBC) [Ratio] 13.0 % Normal 11.5-15.0 [facility] Comment on above: Order Comment: Pre-o p diagnosis:NSTEMI (non-ST elevated myocardial infarction) (CMS/HCC) [I21.4]Acute non-ST segment elevation myocardial infarction (CMS/HCC) [I21.4]Coronary artery disease, unspecified vessel or lesion type, unspecified whether angina present, unspecified whether [place] or transplanted heart [I25.10] Performed By: #### L [id number] ####[facility] ([employer])[address] [place] [address] ERYTHROCYTE MEAN CORPUSCULAR HEMOGLOBIN CONCENTRATION (G/DL) BY AUTOMATED 34.5 g/dL Normal 32.0-35.0 [facility] Comment on above: Order Comment: Pre-o p diagnosis:NSTEMI (non-ST elevated myocardial infarction) (CMS/HCC) [I21.4]Acute non-ST segment elevation myocardial infarction (CMS/HCC) [I21.4]Coronary artery disease, unspecified vessel or lesion type, unspecified whether angina present, unspecified whether [place] or transplanted heart [I25.10] Performed By: #### L [id number] ####[facility] ([employer])[address] [employer] [place] [address] Hematocrit (Bld) [Volume fraction] 26.7 % Low 39.0-55.0 [facility] Comment on above: Order Comment: Pre-o p diagnosis:NSTEMI (non-ST elevated myocardial infarction) (CMS/HCC) [I21.4]Acute non-ST segment elevation myocardial infarction (CMS/HCC) [I21.4]Coronary artery disease, unspecified vessel or lesion type, unspecified whether angina present, unspecified whether [place] or transplanted heart [I25.10] Performed By: #### L [id number] ####[facility] ([facility]AKER)[address] [place] [address] Hemoglobin (Bld) [Mass/Vol] 9.2 g/dL Low 13.0-17.0 [facility] Comment on above: Order Comment: Pre-o p diagnosis:NSTEMI (non-ST elevated myocardial infarction) (CMS/HCC) [I21.4]Acute non-ST segment elevation myocardial infarction (CMS/HCC) [I21.4]Coronary artery disease, unspecified vessel or lesion type, unspecified whether angina present, unspecified whether [place] or transplanted heart [I25.10] Performed By: #### L [id number] ####[facility] ([employer])[address] [place] [address] MCH (RBC) [Entitic mass] 31.4 pg Normal 27.0-33.0 [facility] Comment on above: Order Comment: Pre-o p diagnosis:NSTEMI (non-ST elevated myocardial infarction) (CMS/HCC) [I21.4]Acute non-ST segment elevation myocardial infarction (CMS/HCC) [I21.4]Coronary artery disease, unspecified vessel or lesion type, unspecified whether angina present, unspecified whether [place] or transplanted heart [I25.10] Performed By: #### L [id number] ####[facility] ([employer])[address] [place] [address] MCV (RBC) [Entitic vol] 91.1 fL Normal 82.0-98.0 [facility] Comment on above: Order Comment: Pre-o p diagnosis:NSTEMI (non-ST elevated myocardial infarction) (CMS/HCC) [I21.4]Acute non-ST segment elevation myocardial infarction (CMS/HCC) [I21.4]Coronary artery disease, unspecified vessel or lesion type, unspecified whether angina present, unspecified whether [place] or transplanted heart [I25.10] Performed By: #### L [id number] ####[facility] ([employer])[address], [place] [address] PLATELETS (10*3/UL) IN BLOOD AUTOMATED COUNT 134 10*3/uL Low 150-400 [facility] Comment on above: Order Comment: Pre-o p diagnosis:NSTEMI (non-ST elevated myocardial infarction) (CMS/HCC) [I21.4]Acute non-ST segment elevation myocardial infarction (CMS/HCC) [I21.4]Coronary artery disease, unspecified vessel or lesion type, unspecified whether angina present, unspecified whether [place] or transplanted heart [I25.10] Performed By: #### L [id number] ####[facility] ([employer])[address] [place] [address] RBC (Bld) [#/Vol] 2.93 10*6/uL Low 4.20-5.70 [facility] Comment on above: Order Comment: Pre-o p diagnosis:NSTEMI (non-ST elevated myocardial infarction) (CMS/HCC) [I21.4]Acute non-ST segment elevation myocardial infarction (CMS/HCC) [I21.4]Coronary artery disease, unspecified vessel or lesion type, unspecified whether angina present, unspecified whether [place] or transplanted heart [I25.10] Performed By: #### L [id number] ####[facility] ([employer])[address] [place] [address] WBC (Bld) [#/Vol] 21.16 10*3/uL High 4.00-10.60 [facility] Comment on above: Order Comment: Pre-o p diagnosis:NSTEMI (non-ST elevated myocardial infarction) (CMS/HCC) [I21.4]Acute non-ST segment elevation myocardial infarction (CMS/HCC) [I21.4]Coronary artery disease, unspecified vessel or lesion type, unspecified whether angina present, unspecified whether [place] or transplanted heart [I25.10] Performed By: #### L [id number] ####[facility] ([employer])[address] [place] [address] CBC WITH AUTO DIFFERENTIALon 04-22-2023 Basophils (Bld) [#/Vol] 0.01 10*3/uL Normal 0.00-0.20 [facility] Comment on above: Performed By: #### L [id number] ####[facility] (BEAKER)[address] [place] [address] Basophils/100 WBC (Bld) 0.1 % Normal 0.0-1.0 [facility] Comment on above: Performed By: #### L [id number] ####[facility] (BEAKER)[address] [place] [address] Eosinophils (Bld) [#/Vol] 0.00 10*3/uL Normal 0.00-0.50 [facility] Comment on above: Performed By: #### L [id number] ####[facility] ([facility])[address] [place] [address] Eosinophils/100 WBC (Bld) 0.0 % Normal 0.0-6.0 [facility] Comment on above: Performed By: #### L [id number] ####[facility] ([facility])[address] [place] [address] Erythrocyte distribution width (RBC) [Ratio] 13.2 % Normal 11.5-15.0 [facility] Comment on above: Performed By: #### L [id number] ####[facility] ([facility])[address] [place] [address] ERYTHROCYTE MEAN CORPUSCULAR HEMOGLOBIN CONCENTRATION (G/DL) BY AUTOMATED 35.6 g/dL High 32.0-35.0 [facility] Comment on above: Performed By: #### L [id number] ####[facility] ([facility])[address] [place] [address] Hematocrit (Bld) [Volume fraction] 28.4 % Low 39.0-55.0 [facility] Comment on above: Performed By: #### L [id number] ####[facility] ([facility])[address] [place] [address] Hemoglobin (Bld) [Mass/Vol] 10.1 g/dL Low 13.0-17.0 [facility] Comment on above: Performed By: #### L [id number] ####[facility] ([facility])[address] [place] [address] Immature granulocytes (Bld) [#/Vol] 0.10 10*3/uL Normal 0.00-0.20 [facility] Comment on above: Performed By: #### L [id number] ####[facility] (BEAKER)[address] [place] [address] Immature granulocytes/100 WBC (Bld) 0.7 % Normal 0.0-1.0 [facility] Comment on above: Performed By: #### L [id number] ####[facility] (BEAKER)[address] [place] [address] IMMATURE PLATELET FRACTION % 2.3 % Normal 0.8-6.3 [facility] Comment on above: Performed By: #### L [id number] ####[facility] (BEAKER)[address] [place] [address] Lymphocytes (Bld) [#/Vol] 0.95 10*3/uL Low 1.20-4.00 [facility] Comment on above: Performed By: #### L [id number] ####[facility] (BEAKER)[address] [place] [address] Lymphocytes/100 WBC (Bld) 6.4 % Low 20.0-45.0 [facility] Comment on above: Performed By: #### L [id number] ####[facility] (BEAKER)[address] [place] [address] MCH (RBC) [Entitic mass] 31.7 pg Normal 27.0-33.0 [facility] Comment on above: Performed By: #### L [id number] ####[facility] (BEAKER)[address] [place] [address] MCV (RBC) [Entitic vol] 89.0 fL Normal 82.0-98.0 [facility] Comment on above: Performed By: #### L [id number] ####[facility] (BEAKER)[address] [place] [address] Monocytes (Bld) [#/Vol] 1.37 10*3/uL High 0.10-1.00 [facility] Comment on above: Performed By: #### L [id number] ####[facility] (BEAKER)[address] [place] [address] Monocytes/100 WBC (Bld) 9.3 % Normal 5.0-12.0 [facility] Comment on above: Performed By: #### L [id number] ####[facility] ([facility])[address] [place] [address] Neutrophils (Bld) [#/Vol] 12.36 10*3/uL High 1.60-7.60 [facility] Comment on above: Performed By: #### L [id number] ####[facility] ([facility])[address], [place] [address] Neutrophils/100 WBC (Bld) 83.5 % High 40.0-72.0 [facility] Comment on above: Performed By: #### L [id number] ####[facility] ([facility])[address] [address] NRBC (PER 100 WBCS) BY AUTOMATED COUNT 0.0 % Normal 0 [facility] Comment on above: Performed By: #### L [id number] ####[facility] ([facility])[address] [place] [address] PLATELETS (10*3/UL) IN BLOOD AUTOMATED COUNT 108 10*3/uL Low 150-400 [facility] Comment on above: Performed By: #### L [id number] ####[facility] ([facility])[address] [place] [address] RBC (Bld) [#/Vol] 3.19 10*6/uL Low 4.20-5.70 [facility] Comment on above: Performed By: #### L [id number] ####[facility] ([facility])[address] [place] [address] WBC (Bld) [#/Vol] 14.79 10*3/uL High 4.00-10.60 [facility] Comment on above: Performed By: #### L [id number] ####[facility] (BEAKER)[address] [place] [address] CO-OXIMETRYon 04-22-2023 CARBOXYHEMOGLOBIN/ HEMOGLOBIN TOTAL % IN BLOOD 1.5 % Normal [facility] Comment on above: Performed By: #### L [id number] ####[facility] [id number] [place] [address] [facility] Hemoglobin (Bld) [Mass/Vol] 12.7 g/dL Normal [facility] Comment on above: Performed By: #### L [id number] ####[facility] [id number] [place] [address] [facility] METHEMOGLOBIN/100 IN BLOOD 0.1 % Normal 0.0-1.5 [facility] Comment on above: Performed By: #### L [id number] ####[facility] [id number] [place] [address] [facility] Oxygen saturation in Blood 71.7 % Normal [facility] Comment on above: Performed By: #### L [id number] ####[facility] [id number] [place] [address] [facility] OXYGENATED HEMOGLOBIN IN BLOOD 70.6 % Normal [facility] Comment on above: Performed By: #### L [id number] ####[facility] [id number] [place] [address] [place] CONSULTon 04-22-2023 CONSULT Normal [facility] FIBRINOGENon 04-22-2023 Magnesium [Mass/Vol] 162 mg/dL Normal 150-425 [facility] Comment on above: Order Comment: Pre-o p diagnosis:NSTEMI (non-ST elevated myocardial infarction) (CMS/HCC) [I21.4]Acute non-ST segment elevation myocardial infarction (CMS/HCC) [I21.4]Coronary artery disease, unspecified vessel or lesion type, unspecified whether angina present, unspecified whether [place] or transplanted heart [I25.10] Performed By: #### L [id number] ####[facility] (BEAKER)[address] [place] [address] HEPATIC FUNCTION PANELon Albumin [Mass/Vol] 2.5 g/dL Low 3.5-5.7 [facility] Comment on above: Performed By: #### L [id number] ####[facility] ([facility])[address] [place] [address] ALP [Catalytic activity/Vol] 54 U/L Normal 34-104 [facility] Comment on above: Performed By: #### L [id number] ####[facility] ([facility])[address] [place] [address] ALT [Catalytic activity/Vol] 10 U/L Normal 7-52 [facility] Comment on above: Performed By: #### L [id number] ####[facility] ([facility])[address] [place] [address] AST [Catalytic activity/Vol] 34 U/L Normal 13-39 [facility] Comment on above: Performed By: #### L [id number] ####[facility] ([facility])[address] [place] [address] Bilirubin [Mass/Vol] 0.6 mg/dL Normal 0.3-1.0 [facility] Comment on above: Performed By: #### L [id number] ####[facility] ([facility])[address] [place] [address] Magnesium [Mass/Vol] 0.2 mg/dL Normal 0-0.2 [facility] Comment on above: Performed By: #### L [id number] ####[facility] ([facility])[address] [place] [address] Protein [Mass/Vol] 3.7 g/dL Low 6.0-8.3 [facility] Comment on above: Performed By: #### L [id number] ####[facility] ([facility])[address] [place] [address] HISTOLOGY - TISSUE EXAMon LAB AP CASE REPORT Normal [facility] Comment on above: Order Comment: Pre-o p diagnosis:NSTEMI (non-ST elevated myocardial infarction) (CMS/HCC) [I21.4]Acute non-ST segment elevation myocardial infarction (CMS/HCC) [I21.4]Coronary artery disease, unspecified vessel or lesion type, unspecified whether angina present, unspecified whether [place] or transplanted heart [I25.10] Result Comment: Surg ical Pathology Case: [id number] Provider: Chaitanya Ames MD Collected: 04/22/2023 0928Ordering Location: [facility] Main Operating Room Received: 04/22/2023 1923Pathologist: RAHEEM Wilsonpecimens: A) - Lymph Node, ANTERIOR MEDIASTINAL LYMPH NODE B) - Lymph Node, RIGHT INTERNAL MAMMARY LYMPH NODE FOR HISTOLOGY Performed By: #### L [id number] ####[facility] (BEAKER)[address] [place] [address] LAB AP CLINICAL INFORMATION Normal [facility] Comment on above: Order Comment: Pre-o p diagnosis:NSTEMI (non-ST elevated myocardial infarction) (CMS/HCC) [I21.4]Acute non-ST segment elevation myocardial infarction (CMS/HCC) [I21.4]Coronary artery disease, unspecified vessel or lesion type, unspecified whether angina present, unspecified whether [place] or transplanted heart [I25.10] Result Comment: Post -Op [id number] - NSTEMI (non-ST elevated myocardial infarction) (CMS/HCC) [ICD-10-CM]I21.4 - Acute non-ST segment elevation myocardial infarction (CMS/HCC) [ICD-10-CM]I25.10 - Coronary artery disease, unspecified vessel or lesion type, unspecified whether angina present, unspecified whether [place] or transplanted heart [ICD-10-CM] Performed By: #### L [id number] ####[facility] (BEAKER)[address] [place] [address] LAB AP GROSS DESCRIPTION A. Lymph Node. Normal [facility] Comment on above: Order Comment: Pre-o p diagnosis:NSTEMI (non-ST elevated myocardial infarction) (CMS/HCC) [I21.4]Acute non-ST segment elevation myocardial infarction (CMS/HCC) [I21.4]Coronary artery disease, unspecified vessel or lesion type, unspecified whether angina present, unspecified whether [place] or transplanted heart [I25.10] Result Comment: Rece [...] submitted in a single cassette.Jenny Guajardo, Pathologists' Knitting Machine Fixer Head Performed By: #### L [id number] ####[facility] (BEAKER)[address] [place] [address] LAB AP MICROSCOPIC DESCRIPTION Microscopic examination performed. Normal [facility] Comment on above: Order Comment: Pre-o p diagnosis:NSTEMI (non-ST elevated myocardial infarction) (CMS/HCC) [I21.4]Acute non-ST segment elevation myocardial infarction (CMS/HCC) [I21.4]Coronary artery disease, unspecified vessel or lesion type, unspecified whether angina present, unspecified whether [place] or transplanted heart [I25.10] Performed By: #### L [id number] ####[facility] (BEAKER)[address] [place] [address] LAB AP REPORT FINAL DIAGNOSIS NARRATIVE Normal [facility] Comment on above: Order Comment: Pre-o p diagnosis:NSTEMI (non-ST elevated myocardial infarction) (CMS/HCC) [I21.4]Acute non-ST segment elevation myocardial infarction (CMS/HCC) [I21.4]Coronary artery disease, unspecified vessel or lesion type, unspecified whether angina present, unspecified whether [place] or transplanted heart [I25.10] Result Comment: A. L ymph node, anterior mediastinal, regional resection: - Two benign lymph nodes with sinus histiocytosis and anthracosis (0/2).B. Lymph node, right internal mammary, regional resection: - One benign lymph node with sinus histiocytosis and anthracosis (0/1). - Minute fragment of skeletal muscle and fibroadipose tissue with focal chronic inflammation. Performed By: #### L [id number] ####[facility] (BEAKER)[address] [place] [address] HPon 04-22-2023 HP H&P reviewed. The laurie putnam was examined and there are no changes to the H&P. Normal [facility] LACTIC ACID WITH 4 HOUR REFL EXon 04-22-2023 LACTATE (MMOL/L) IN SER/PLAS 2.3 mmol/L High 0.5-2.2 [facility] Comment on above: Order Comment: Pre-o p diagnosis:NSTEMI (non-ST elevated myocardial infarction) (CMS/HCC) [I21.4]Acute non-ST segment elevation myocardial infarction (CMS/HCC) [I21.4]Coronary artery disease, unspecified vessel or lesion type, unspecified whether angina present, unspecified whether [place] or transplanted heart [I25.10] Performed By: #### L [id number] ####[facility] (BEAKER)[address] [place] [address] LACTIC ACID, PLASMAon 2022 LACTATE (MMOL/L) IN SER/PLAS 2.6 mmol/L Critically high 0.5-2.2 [facility] Comment on above: Result Comment: Prev ious result verified on 04/22/2023 1906 on specimen/case [id number] called with component Lactate for procedure Lactic acid, plasma with value 2.7 mmol/L. Performed By: #### L [id number] ####[facility] (BEAKER)[address] [place] [address] LACTATE (MMOL/L) IN SER/PLAS 2.7 mmol/L Critically high 0.5-2.2 [facility] Comment on above: Performed By: #### L [id number] ####[facility] (BEAKER)[address] [place] [address] MAGNESIUMon 04-22-2023 Magnesium [Mass/Vol] 2.1 mg/dL Normal 1.9-2.7 [facility] Comment on above: Performed By: #### L [id number] ####[facility] ([employer])[address] [place] [address] Magnesium [Mass/Vol] 2.4 mg/dL Normal 1.9-2.7 [facility] Comment on above: Order Comment: Pre-o p diagnosis:NSTEMI (non-ST elevated myocardial infarction) (CMS/HCC) [I21.4]Acute non-ST segment elevation myocardial infarction (CMS/HCC) [I21.4]Coronary artery disease, unspecified vessel or lesion type, unspecified whether angina present, unspecified whether [place] or transplanted heart [I25.10] Performed By: #### L [id number] ####[facility] ([employer])[address] [place] [address] OPNOTEon 04-22-2023 OPNOTE Normal [facility] PHOSPHORUSon 04-22-2023 Magnesium [Mass/Vol] 3.6 mg/dL Normal 2.5-5.0 [facility] Comment on above: Performed By: #### L [id number] ####[facility] ([employer])[address] [place] [address] POCT ACTIVATED CLOTTING TIME UNSOLICITED RESULTSon 04-22-2023 POC ACTIVATED CLOTTING TIME 132 sec Normal 82-152 [facility] Comment on above: Performed By: #### L [id number] ####[facility] ([employer])[address] [place] [address] POC ACTIVATED CLOTTING TIME 341 sec High 82-152 [facility] Comment on above: Performed By: #### L [id number] ####[facility] ([employer])[address] [place] [address] POC ACTIVATED CLOTTING TIME 473 sec High 82-152 [facility] Comment on above: Performed By: #### L [id number] ####[facility] ([employer])[address] [place] [address] POC ACTIVATED CLOTTING TIME 516 sec High 82-152 [facility] Comment on above: Performed By: #### L [id number] ####[facility] (BEAKER)[address] [place] [address] POC ACTIVATED CLOTTING TIME 460 sec High 82-152 [facility] Comment on above: Performed By: #### L [id number] ####[facility] (BEAKER)[address] [place] [address] POC ACTIVATED CLOTTING TIME 446 sec High 82-152 [facility] Comment on above: Performed By: #### L [id number] ####[facility] (BEAKER)[address] [place] [address] POC ACTIVATED CLOTTING TIME 479 sec High 82-152 [facility] Comment on above: Performed By: #### L [id number] ####[facility] (BEAKER)[address] [place] [address] POC ACTIVATED CLOTTING TIME 447 sec High 82-152 [facility] Comment on above: Performed By: #### L [id number] ####[facility] (BEAKER)[address] [place] [address] POC ACTIVATED CLOTTING TIME 596 sec High 82-152 [facility] Comment on above: Performed By: #### L [id number] ####[facility] (BEAKER)[address] [place] [address] POC ACTIVATED CLOTTING TIME 602 sec High 82-152 [facility] Comment on above: Performed By: #### L [id number] ####[facility] (BEAKER)[address] [place] [address] POC ACTIVATED CLOTTING TIME 143 sec Normal 82-152 [facility] Comment on above: Performed By: #### L [id number] ####[facility] (BEAKER)[address] [place] [address] POCT GLUCOSE METER UNSOLICIT ED RESULTSon 04-22-2023 Glucose [Mass/Vol] 156 mg/dL High 70-105 [facility] Comment on above: Order Comment: Waive d Testing in the ED is performed under the ED CLIA certificate #[id number]. Result Comment: [email or web address] [email or web address] Performed By: #### L [id number] ####[facility] ([facility])[address] [place] [address] Glucose [Mass/Vol] 121 mg/dL High 70-105 [facility] Comment on above: Order Comment: Waive d Testing in the ED is performed under the ED CLIA certificate #[id number]. Result Comment: [email or web address] [email or web address] Performed By: #### L [id number] ####[facility] ([facility])[address] [place] [address] Glucose [Mass/Vol] 122 mg/dL High 70-105 [facility] Comment on above: Order Comment: Waive d Testing in the ED is performed under the ED CLIA certificate #[id number]. Result Comment: [email or web address] man Performed By: #### L [id number] ####[facility] ([facility])[address] [place] [address] Glucose [Mass/Vol] 137 mg/dL High 70-105 [facility] Comment on above: Order Comment: Waive d Testing in the ED is performed under the ED CLIA certificate #[id number]. Result Comment: cfit [email or web address] Performed By: #### L [id number] ####[facility] ([facility])[address] [place] [address] Glucose [Mass/Vol] 107 mg/dL High 70-105 [facility] Comment on above: Order Comment: Waive d Testing in the ED is performed under the ED CLIA certificate #[id number]. Result Comment: hste [email or web address] Performed By: #### L [id number] ####[facility] ([facility])[address] [place] [address] POCT PERFUSION PANEL UNSOLIC ITED RESULTSon 04-22-2023 CO2 [Moles/Vol] 25.0 mmol/L Normal 21.0-29.0 [facility] Comment on above: Performed By: #### L [id number] ####[facility] ([facility])[address] [place] [address] Glucose [Mass/Vol] 195 mg/dL High 70-105 [facility] Comment on above: Performed By: #### L [id number] ####[facility] (BEAKER)[address] [place] [address] HCO3 (Bld) [Moles/Vol] 23.6 mmol/L Normal 23.0-28.0 [facility] Comment on above: Performed By: #### L [id number] ####[facility] (BEAKER)[address] [address] Hematocrit (Bld) [Volume fraction] 27 % Low 38-51 [facility] Comment on above: Performed By: #### L [id number] ####[facility] ([facility])[address] [place] [address] Hemoglobin (Bld) [Mass/Vol] 9.2 g/dL Low 12.0-17.0 [facility] Comment on above: Performed By: #### L [id number] ####[facility] ([facility])[address] [address] POCT BASE EXCESS -3.0 mmol/L Low -2.0-3.0 [facility] Comment on above: Performed By: #### L [id number] ####[facility] (BEAKER)[address] [place] [address] POCT IONIZED CALCIUM 1.35 mmol/L High 1.12-1.32 [facility] Comment on above: Performed By: #### L [id number] ####[facility] (BEAKER)[address] [place] [address] POCT PCO2 47.6 mmHg Normal 41.0-51.0 [facility] Comment on above: Performed By: #### L [id number] ####[facility] (BEAKER)[address] [place] [address] POCT PH 7.30 Low 7.31-7.41 [facility] Comment on above: Performed By: #### L [id number] ####[facility] (BEAKER)[address] [place] [address] POCT PO2 355 mmHg High 80-105 [facility] Comment on above: Performed By: #### L [id number] ####[facility] (BEAKER)[address] [place] [address] POCT SO2 100 % High 95-98 [facility] Comment on above: Performed By: #### L [id number] ####[facility] (BEAKER)[address] [place] [address] Potassium [Moles/Vol] 3.2 mmol/L Low 3.5-4.9 [facility] Comment on above: Performed By: #### L [id number] ####[facility] (BEAKER)[address] [place] [address] Sodium [Moles/Vol] 146 mmol/L Normal 138.0-146.0 [facility] Comment on above: Performed By: #### L [id number] ####[facility] (BEAKER)[address] [place] [address] CO2 [Moles/Vol] 26.0 mmol/L Normal 21.0-29.0 [facility] Comment on above: Performed By: #### L [id number] ####[facility] (BEAKER)[address] [place] [address] Glucose [Mass/Vol] 196 mg/dL High 70-105 [facility] Comment on above: Performed By: #### L [id number] ####[facility] (BEAKER)[address] [place] [address] HCO3 (Bld) [Moles/Vol] 24.2 mmol/L Normal 23.0-28.0 [facility] Comment on above: Performed By: #### L [id number] ####[facility] (BEAKER)[address] [place] [address] Hematocrit (Bld) [Volume fraction] 21 % Low 38-51 [facility] Comment on above: Performed By: #### L [id number] ####[facility] (BEAKER)[address] [address] Hemoglobin (Bld) [Mass/Vol] 7.1 g/dL Low 12.0-17.0 [facility] Comment on above: Performed By: #### L [id number] ####[facility] (BEAKER)[address] [address] POCT BASE EXCESS -3.0 mmol/L Low -2.0-3.0 [facility] Comment on above: Performed By: #### L [id number] ####[facility] (BEAKER)[address] [address] POCT IONIZED CALCIUM 1.19 mmol/L Normal 1.12-1.32 [facility] Comment on above: Performed By: #### L [id number] ####[facility] (BEAKER)[address] [address] POCT PCO2 52.4 mmHg High 41.0-51.0 [facility] Comment on above: Performed By: #### L [id number] ####[facility] (BEAKER)[address] [address] POCT PH 7.27 Low 7.31-7.41 [facility] Comment on above: Performed By: #### L [id number] ####[facility] (BEAKER)[address] [address] POCT PO2 488 mmHg High 80-105 [facility] Comment on above: Performed By: #### L [id number] ####[facility] (BEAKER)[address] [place] [address] POCT SO2 100 % High 95-98 [facility] Comment on above: Performed By: #### L [id number] ####[facility] (BEAKER)[address] [place], [place] [address] Potassium [Moles/Vol] 3.7 mmol/L Normal 3.5-4.9 [facility] Comment on above: Performed By: #### L [id number] ####[facility] (BEAKER)[address] [place] [address] Sodium [Moles/Vol] 145 mmol/L Normal 138.0-146.0 [facility] Comment on above: Performed By: #### L [id number] ####[facility] (BEAKER)[address] [place] [address] CO2 [Moles/Vol] 24.0 mmol/L Normal 21.0-29.0 [facility] Comment on above: Performed By: #### L [id number] ####[facility] (BEAKER)[address] [place] [address] Glucose [Mass/Vol] 177 mg/dL High 70-105 [facility] Comment on above: Performed By: #### L [id number] ####[facility] (BEAKER)[address] [place] [address] HCO3 (Bld) [Moles/Vol] 22.2 mmol/L Low 23.0-28.0 [facility] Comment on above: Performed By: #### L [id number] ####[facility] (BEAKER)[address] [place] [address] Hematocrit (Bld) [Volume fraction] 21 % Low 38-51 [facility] Comment on above: Performed By: #### L [id number] ####[facility] (BEAKER)[address] [place] [address] Hemoglobin (Bld) [Mass/Vol] 7.1 g/dL Low 12.0-17.0 [facility] Comment on above: Performed By: #### L [id number] ####[facility] (BEAKER)[address] [place] [address] POCT BASE EXCESS -4.0 mmol/L Low -2.0-3.0 [facility] Comment on above: Performed By: #### L [id number] ####[facility] (BEAKER)[address] [place] [address] POCT IONIZED CALCIUM 1.32 mmol/L Normal 1.12-1.32 [facility] Comment on above: Performed By: #### L [id number] ####[facility] (BEAKER)[address] [address] POCT PCO2 44.7 mmHg Normal 41.0-51.0 [facility] Comment on above: Performed By: #### L [id number] ####[facility] (BEAKER)[address] [address] POCT PH 7.30 Low 7.31-7.41 [facility] Comment on above: Performed By: #### L [id number] ####[facility] (BEAKER)[address] [address] POCT PO2 449 mmHg High 80-105 [facility] Comment on above: Performed By: #### L [id number] ####[facility] (BEAKER)[address] [address] POCT SO2 100 % High 95-98 [facility] Comment on above: Performed By: #### L [id number] ####[facility] (BEAKER)[address] [place], [place] [address] Potassium [Moles/Vol] 4.4 mmol/L Normal 3.5-4.9 [facility] Comment on above: Performed By: #### L [id number] ####[facility] (BEAKER)[address], [place] [address] Sodium [Moles/Vol] 141 mmol/L Normal 138.0-146.0 [facility] Comment on above: Performed By: #### L [id number] ####[facility] (BEAKER)[address], [place] [address] CO2 [Moles/Vol] 25.0 mmol/L Normal 21.0-29.0 [facility] Comment on above: Performed By: #### L [id number] ####[facility] (BEAKER)[address] [address] Glucose [Mass/Vol] 171 mg/dL High 70-105 [facility] Comment on above: Performed By: #### L [id number] ####[facility] ([facility])[address] [address] HCO3 (Bld) [Moles/Vol] 24.0 mmol/L Normal 23.0-28.0 [facility] Comment on above: Performed By: #### L [id number] ####[facility] ([facility])[address] [place] [address] Hematocrit (Bld) [Volume fraction] 26 % Low 38-51 [facility] Comment on above: Performed By: #### L [id number] ####[facility] ([facility])[address] [address] Hemoglobin (Bld) [Mass/Vol] 8.8 g/dL Low 12.0-17.0 [facility] Comment on above: Performed By: #### L [id number] ####[facility] ([facility])[address] [place] [address] POCT BASE EXCESS -1.0 mmol/L Normal -2.0-3.0 [facility] Comment on above: Performed By: #### L [id number] ####[facility] ([facility])[address] [place] [address] POCT IONIZED CALCIUM 1.06 mmol/L Low 1.12-1.32 [facility] Comment on above: Performed By: #### L [id number] ####[facility] ([facility])[address] [place] [address] POCT PCO2 38.1 mmHg Low 41.0-51.0 [facility] Comment on above: Performed By: #### L [id number] ####[facility] (BEAKER)[address] [place] [address] POCT PH 7.41 Normal 7.31-7.41 [facility] Comment on above: Performed By: #### L [id number] ####[facility] (BEAKER)[address] [place] [address] POCT PO2 534 mmHg High 80-105 [facility] Comment on above: Performed By: #### L [id number] ####[facility] (BEAKER)[address] [place] [address] POCT SO2 100 % High 95-98 [facility] Comment on above: Performed By: #### L [id number] ####[facility] (BEAKER)[address] [place] [address] Potassium [Moles/Vol] 4.1 mmol/L Normal 3.5-4.9 [facility] Comment on above: Performed By: #### L [id number] ####[facility] (BEAKER)[address] [place] [address] Sodium [Moles/Vol] 141 mmol/L Normal 138.0-146.0 [facility] Comment on above: Performed By: #### L [id number] ####[facility] (BEAKER)[address] [place] [address] CO2 [Moles/Vol] 27.0 mmol/L Normal 21.0-29.0 [facility] Comment on above: Performed By: #### L [id number] ####[facility] (BEAKER)[address] [place] [address] Glucose [Mass/Vol] 187 mg/dL High 70-105 [facility] Comment on above: Performed By: #### L [id number] ####[facility] (BEAKER)[address] [place] [address] HCO3 (Bld) [Moles/Vol] 25.8 mmol/L Normal 23.0-28.0 [facility] Comment on above: Performed By: #### L [id number] ####[facility] (BEAKER)[address] [place] [address] Hematocrit (Bld) [Volume fraction] 26 % Low 38-51 [facility] Comment on above: Performed By: #### L [id number] ####[facility] (BEAKER)[address] [place] [address] Hemoglobin (Bld) [Mass/Vol] 8.8 g/dL Low 12.0-17.0 [facility] Comment on above: Performed By: #### L [id number] ####[facility] (BEAKER)[address] [place] [address] POCT BASE EXCESS 1.0 mmol/L Normal -2.0-3.0 [facility] Comment on above: Performed By: #### L [id number] ####[facility] (BEAKER)[address] [place] [address] POCT IONIZED CALCIUM 1.06 mmol/L Low 1.12-1.32 [facility] Comment on above: Performed By: #### L [id number] ####[facility] (BEAKER)[address] [place] [address] POCT PCO2 40.4 mmHg Low 41.0-51.0 [facility] Comment on above: Performed By: #### L [id number] ####[facility] (BEAKER)[address] [place] [address] POCT PH 7.41 Normal 7.31-7.41 [facility] Comment on above: Performed By: #### L [id number] ####[facility] (BEAKER)[address] [place] [address] POCT PO2 506 mmHg High 80-105 [facility] Comment on above: Performed By: #### L [id number] ####[facility] (BEAKER)[address] [place] [address] POCT SO2 100 % High 95-98 [facility] Comment on above: Performed By: #### L [id number] ####[facility] (BEAKER)[address] [place] [address] Potassium [Moles/Vol] 4.2 mmol/L Normal 3.5-4.9 [facility] Comment on above: Performed By: #### L [id number] ####[facility] (BEAKER)[address] [place] [address] Sodium [Moles/Vol] 141 mmol/L Normal 138.0-146.0 [facility] Comment on above: Performed By: #### L [id number] ####[facility] (BEAKER)[address] [place] [address] CO2 [Moles/Vol] 23.0 mmol/L Normal 21.0-29.0 [facility] Comment on above: Performed By: #### L [id number] ####[facility] (BEAKER)[address] [place] [address] Glucose [Mass/Vol] 211 mg/dL High 70-105 [facility] Comment on above: Performed By: #### L [id number] ####[facility] (BEAKER)[address] [place] [address] HCO3 (Bld) [Moles/Vol] 22.1 mmol/L Low 23.0-28.0 [facility] Comment on above: Performed By: #### L [id number] ####[facility] (BEAKER)[address] [place] [address] Hematocrit (Bld) [Volume fraction] 28 % Low 38-51 [facility] Comment on above: Performed By: #### L [id number] ####[facility] (BEAKER)[address] [place] [address] Hemoglobin (Bld) [Mass/Vol] 9.5 g/dL Low 12.0-17.0 [facility] Comment on above: Performed By: #### L [id number] ####[facility] (BEAKER)[address] [place] [address] POCT BASE EXCESS -3.0 mmol/L Low -2.0-3.0 [facility] Comment on above: Performed By: #### L [id number] ####[facility] (BEAKER)[address] [place] [address] POCT IONIZED CALCIUM 1.08 mmol/L Low 1.12-1.32 [facility] Comment on above: Performed By: #### L [id number] ####[facility] (BEAKER)[address] [place] [address] POCT PCO2 38.1 mmHg Low 41.0-51.0 [facility] Comment on above: Performed By: #### L [id number] ####[facility] (BEAKER)[address] [place] [address] POCT PH 7.37 Normal 7.31-7.41 [facility] Comment on above: Performed By: #### L [id number] ####[facility] (BEAKER)[address] [place] [address] POCT PO2 418 mmHg High 80-105 [facility] Comment on above: Performed By: #### L [id number] ####[facility] (BEAKER)[address] [place] [address] POCT SO2 100 % High 95-98 [facility] Comment on above: Performed By: #### L [id number] ####[facility] (BEAKER)[address] [place] [address] Potassium [Moles/Vol] 4.7 mmol/L Normal 3.5-4.9 [facility] Comment on above: Performed By: #### L [id number] ####[facility] (BEAKER)[address] [place] [address] Sodium [Moles/Vol] 137 mmol/L Low 138.0-146.0 [facility] Comment on above: Performed By: #### L [id number] ####[facility] (BEAKER)[address] [place] [address] CO2 [Moles/Vol] 24.0 mmol/L Normal 21.0-29.0 [facility] Comment on above: Performed By: #### L [id number] ####[facility] (BEAKER)[address] [place] [address] Glucose [Mass/Vol] 203 mg/dL High 70-[address] [facility] Comment on above: Performed By: #### L [id number] ####[facility] (BEAKER)[address] [address] HCO3 (Bld) [Moles/Vol] 22.6 mmol/L Low 23.0-28.0 [facility] Comment on above: Performed By: #### L [id number] ####[facility] ([facility])[address] [address] Hematocrit (Bld) [Volume fraction] 26 % Low 38-51 [facility] Comment on above: Performed By: #### L [id number] ####[facility] ([facility])[address] [address] Hemoglobin (Bld) [Mass/Vol] 8.8 g/dL Low 12.0-17.0 [facility] Comment on above: Performed By: #### L [id number] ####[facility] ([facility])[address] [address] POCT BASE EXCESS -2.0 mmol/L Normal -2.0-3.0 [facility] Comment on above: Performed By: #### L [id number] ####[facility] ([facility])[address] [address] POCT IONIZED CALCIUM 1.06 mmol/L Low 1.12-1.32 [facility] Comment on above: Performed By: #### L [id number] ####[facility] ([facility])[address] [address] POCT PCO2 38.7 mmHg Low 41.0-51.0 [facility] Comment on above: Performed By: #### L [id number] ####[facility] (BEAKER)[address] [address] POCT PH 7.38 Normal 7.31-7.41 [facility] Comment on above: Performed By: #### L [id number] ####[facility] (BEAKER)[address] [place] [address] POCT PO2 377 mmHg High 80-105 [facility] Comment on above: Performed By: #### L [id number] ####[facility] (BEAKER)[address] [place] [address] POCT SO2 100 % High 95-98 [facility] Comment on above: Performed By: #### L [id number] ####[facility] (BEAKER)[address] [place] [address] Potassium [Moles/Vol] 5.0 mmol/L High 3.5-4.9 [facility] Comment on above: Performed By: #### L [id number] ####[facility] (BEAKER)[address] [place] [address] Sodium [Moles/Vol] 137 mmol/L Low 138.0-146.0 [facility] Comment on above: Performed By: #### L [id number] ####[facility] (BEAKER)[address] [place] [address] CO2 [Moles/Vol] 24.0 mmol/L Normal 21.0-29.0 [facility] Comment on above: Performed By: #### L [id number] ####[facility] (BEAKER)[address] [place] [address] Glucose [Mass/Vol] 193 mg/dL High 70-105 [facility] Comment on above: Performed By: #### L [id number] ####[facility] (BEAKER)[address] [place] [address] HCO3 (Bld) [Moles/Vol] 23.3 mmol/L Normal 23.0-28.0 [facility] Comment on above: Performed By: #### L [id number] ####[facility] (BEAKER)[address] [place] [address] Hematocrit (Bld) [Volume fraction] 28 % Low 38-51 [facility] Comment on above: Performed By: #### L [id number] ####[facility] (BEAKER)[address] [place] [address] Hemoglobin (Bld) [Mass/Vol] 9.5 g/dL Low 12.0-17.0 [facility] Comment on above: Performed By: #### L [id number] ####[facility] (BEAKER)[address] [place] [address] POCT BASE EXCESS -2.0 mmol/L Normal -2.0-3.0 [facility] Comment on above: Performed By: #### L [id number] ####[facility] (BEAKER)[address] [place] [address] POCT IONIZED CALCIUM 1.07 mmol/L Low 1.12-1.32 [facility] Comment on above: Performed By: #### L [id number] ####[facility] (BEAKER)[address] [place] [address] POCT PCO2 38.7 mmHg Low 41.0-51.0 [facility] Comment on above: Performed By: #### L [id number] ####[facility] (BEAKER)[address] [place] [address] POCT PH 7.39 Normal 7.31-7.41 [facility] Comment on above: Performed By: #### L [id number] ####[facility] (BEAKER)[address] [place] [address] POCT PO2 367 mmHg High 80-105 [facility] Comment on above: Performed By: #### L [id number] ####[facility] (BEAKER)[address] [place] [address] POCT SO2 100 % High 95-98 [facility] Comment on above: Performed By: #### L [id number] ####[facility] (BEAKER)[address] [place] [address] Potassium [Moles/Vol] 5.6 mmol/L High 3.5-4.9 [facility] Comment on above: Performed By: #### L [id number] ####[facility] (BEAKER)[address] [place] [address] Sodium [Moles/Vol] 138 mmol/L Normal 138.0-146.0 [facility] Comment on above: Performed By: #### L [id number] ####[facility] (BEAKER)[address] [place] [address] CO2 [Moles/Vol] 25.0 mmol/L Normal 21.0-29.0 [facility] Comment on above: Performed By: #### L [id number] ####[facility] (BEAKER)[address] [place] [address] Glucose [Mass/Vol] 165 mg/dL High 70-105 [facility] Comment on above: Performed By: #### L [id number] ####[facility] (BEAKER)[address] [place] [address] HCO3 (Bld) [Moles/Vol] 23.5 mmol/L Normal 23.0-28.0 [facility] Comment on above: Performed By: #### L [id number] ####[facility] (BEAKER)[address] [place] [address] Hematocrit (Bld) [Volume fraction] 27 % Low 38-51 [facility] Comment on above: Performed By: #### L [id number] ####[facility] (BEAKER)[address] [place] [address] Hemoglobin (Bld) [Mass/Vol] 9.2 g/dL Low 12.0-17.0 [facility] Comment on above: Performed By: #### L [id number] ####[facility] (BEAKER)[address] [place] [address] POCT BASE EXCESS -1.0 mmol/L Normal -2.0-3.0 [facility] Comment on above: Performed By: #### L [id number] ####[facility] (BEAKER)[address] [place] [address] POCT IONIZED CALCIUM 1.08 mmol/L Low 1.12-1.32 [facility] Comment on above: Performed By: #### L [id number] ####[facility] (BEAKER)[address] [place] [address] POCT PCO2 38.4 mmHg Low 41.0-51.0 [facility] Comment on above: Performed By: #### L [id number] ####[facility] (BEAKER)[address] [place] [address] POCT PH 7.39 Normal 7.31-7.41 [facility] Comment on above: Performed By: #### L [id number] ####[facility] (BEAKER)[address] [place] [address] POCT PO2 387 mmHg High 80-105 [facility] Comment on above: Performed By: #### L [id number] ####[facility] (BEAKER)[address] [place] [address] POCT SO2 100 % High 95-98 [facility] Comment on above: Performed By: #### L [id number] ####[facility] (BEAKER)[address] [place] [address] Potassium [Moles/Vol] 5.9 mmol/L High 3.5-4.9 [facility] Comment on above: Performed By: #### L [id number] ####[facility] (BEAKER)[address] [place] [address] Sodium [Moles/Vol] 138 mmol/L Normal 138.0-146.0 [facility] Comment on above: Performed By: #### L [id number] ####[facility] (BEAKER)[address] [place] [address] CO2 [Moles/Vol] 26.0 mmol/L Normal 21.0-29.0 [facility] Comment on above: Performed By: #### L [id number] ####[facility] (BEAKER)[address] [place] [address] Glucose [Mass/Vol] 142 mg/dL High 70-105 [facility] Comment on above: Performed By: #### L [id number] ####[facility] (BEAKER)[address] [place] [address] HCO3 (Bld) [Moles/Vol] 24.5 mmol/L Normal 23.0-28.0 [facility] Comment on above: Performed By: #### L [id number] ####[facility] ([facility])[address] [place] [address] Hematocrit (Bld) [Volume fraction] 24 % Low 38-51 [facility] Comment on above: Performed By: #### L [id number] ####[facility] ([facility])[address] [place] [address] Hemoglobin (Bld) [Mass/Vol] 8.2 g/dL Low 12.0-17.0 [facility] Comment on above: Performed By: #### L [id number] ####[facility] ([facility])[address] [address] POCT BASE EXCESS -1.0 mmol/L Normal -2.0-3.0 [facility] Comment on above: Performed By: #### L [id number] ####[facility] ([facility])[address] [place] [address] POCT IONIZED CALCIUM 0.99 mmol/L Low 1.12-1.32 [facility] Comment on above: Performed By: #### L [id number] ####[facility] ([facility])[address] [address] POCT PCO2 44.6 mmHg Normal 41.0-51.0 [facility] Comment on above: Performed By: #### L [id number] ####[facility] ([facility])[address] [address] POCT PH 7.35 Normal 7.31-7.41 [facility] Comment on above: Performed By: #### L [id number] ####[facility] (BEAKER)[address] [place] [address] POCT PO2 462 mmHg High 80-105 [facility] Comment on above: Performed By: #### L [id number] ####[facility] (BEAKER)[address] [place] [address] POCT SO2 100 % High 95-98 [facility] Comment on above: Performed By: #### L [id number] ####[facility] (BEAKER)[address] [place] [address] Potassium [Moles/Vol] 6.2 mmol/L Critically high 3.5-4.9 [facility] Comment on above: Performed By: #### L [id number] ####[facility] (BEAKER)[address] [place] [address] Sodium [Moles/Vol] 136 mmol/L Low 138.0-146.0 [facility] Comment on above: Performed By: #### L [id number] ####[facility] (BEAKER)[address] [place] [address] CO2 [Moles/Vol] 24.0 mmol/L Normal 21.0-29.0 [facility] Comment on above: Performed By: #### L [id number] ####[facility] (BEAKER)[address] [place] [address] Glucose [Mass/Vol] 151 mg/dL High 70-105 [facility] Comment on above: Performed By: #### L [id number] ####[facility] (BEAKER)[address] [place] [address] HCO3 (Bld) [Moles/Vol] 22.6 mmol/L Low 23.0-28.0 [facility] Comment on above: Performed By: #### L [id number] ####[facility] (BEAKER)[address] [place] [address] Hematocrit (Bld) [Volume fraction] 38 % Normal 38-51 [facility] Comment on above: Performed By: #### L [id number] ####[facility] (BEAKER)[address] [place] [address] Hemoglobin (Bld) [Mass/Vol] 12.9 g/dL Normal 12.0-17.0 [facility] Comment on above: Performed By: #### L [id number] ####[facility] ([facility])[address] [place] [address] POCT BASE EXCESS -4.0 mmol/L Low -2.0-3.0 [facility] Comment on above: Performed By: #### L [id number] ####[facility] ([facility])[address] [place] [address] POCT IONIZED CALCIUM 1.25 mmol/L Normal 1.12-1.32 [facility] Comment on above: Performed By: #### L [id number] ####[facility] ([facility])[address] [place] [address] POCT PCO2 47.5 mmHg Normal 41.0-51.0 [facility] Comment on above: Performed By: #### L [id number] ####[facility] ([facility])[address] [place] [address] POCT PH 7.29 Low 7.31-7.41 [facility] Comment on above: Performed By: #### L [id number] ####[facility] ([facility])[address] [place] [address] POCT PO2 336 mmHg High 80-105 [facility] Comment on above: Performed By: #### L [id number] ####[facility] ([facility])[address] [place] [address] POCT SO2 100 % High 95-98 [facility] Comment on above: Performed By: #### L [id number] ####[facility] ([facility])[address] [place] [address] Potassium [Moles/Vol] 4.4 mmol/L Normal 3.5-4.9 [facility] Comment on above: Performed By: #### L [id number] ####[facility] (BEAKER)[address] [place] [address] Sodium [Moles/Vol] 139 mmol/L Normal 138.0-146.0 [facility] Comment on above: Performed By: #### L [id number] ####[facility] (BEAKER)[address] [place] [address] CO2 [Moles/Vol] 23.0 mmol/L Normal 21.0-29.0 [facility] Comment on above: Performed By: #### L [id number] ####[facility] (BEAKER)[address] [place] [address] Glucose [Mass/Vol] 123 mg/dL High 70-105 [facility] Comment on above: Performed By: #### L [id number] ####[facility] (BEAKER)[address] [place] [address] HCO3 (Bld) [Moles/Vol] 22.1 mmol/L Low 23.0-28.0 [facility] Comment on above: Performed By: #### L [id number] ####[facility] (BEAKER)[address] [place] [address] Hematocrit (Bld) [Volume fraction] 38 % Normal 38-51 [facility] Comment on above: Performed By: #### L [id number] ####[facility] (BEAKER)[address] [place] [address] Hemoglobin (Bld) [Mass/Vol] 12.9 g/dL Normal 12.0-17.0 [facility] Comment on above: Performed By: #### L [id number] ####[facility] (BEAKER)[address] [place] [address] POCT BASE EXCESS -3.0 mmol/L Low -2.0-3.0 [facility] Comment on above: Performed By: #### L [id number] ####[facility] (BEAKER)[address] [place] [address] POCT IONIZED CALCIUM 1.25 mmol/L Normal 1.12-1.32 [facility] Comment on above: Performed By: #### L [id number] ####[facility] ([facility])[address] [address] POCT PCO2 39.3 mmHg Low 41.0-51.0 [facility] Comment on above: Performed By: #### L [id number] ####[facility] ([facility])[address] [address] POCT PH 7.36 Normal 7.31-7.41 [facility] Comment on above: Performed By: #### L [id number] ####[facility] ([facility])[address] [address] POCT PO2 412 mmHg High 80-105 [facility] Comment on above: Performed By: #### L [id number] ####[facility] ([facility])[address] [address] POCT SO2 100 % High 95-98 [facility] Comment on above: Performed By: #### L [id number] ####[facility] ([facility])[address] [address] Potassium [Moles/Vol] 3.8 mmol/L Normal 3.5-4.9 [facility] Comment on above: Performed By: #### L [id number] ####[facility] ([facility])[address] [address] Sodium [Moles/Vol] 140 mmol/L Normal 138.0-146.0 [facility] Comment on above: Performed By: #### L [id number] ####[facility] ([facility])[address] [place] [address] PROTIME-INRon 04-22-2023 INR IN PPP BY COAGULATION ASSAY 1.60 High 0.90-1.10 [facility] Comment on above: Result Comment: ACCC P [...] CHEST 1995;108:231S-246S. Performed By: #### L [id number] ####[facility] ([employer] [facility])[address] [place] [address] PROTHROMBIN TIME (PT) IN PPP BY COAGULATION ASSAY 19.1 Seconds High 12.3-14.8 [facility] Comment on above: Performed By: #### L [id number] ####[facility] ([facility] [facility])[address] [place] [address] INR IN PPP BY COAGULATION ASSAY 1.72 High 0.90-1.10 [facility] Comment on above: Result Comment: ACCC P [...] CHEST 1995;108:231S-246S. Performed By: #### L [id number] ####[facility] (BEAKER)[address] [place] [address] PROTHROMBIN TIME (PT) IN PPP BY COAGULATION ASSAY 20.2 Seconds High 12.3-14.8 [facility] Comment on above: Performed By: #### L [id number] ####[facility] (BEAKER)[address] [place] [address] INR IN PPP BY COAGULATION ASSAY 2.00 High 0.90-1.10 [facility] Comment on above: Order Comment: Pre-o p diagnosis:NSTEMI (non-ST elevated myocardial infarction) (CMS/HCC) [I21.4]Acute non-ST segment elevation myocardial infarction (CMS/HCC) [I21.4]Coronary artery disease, unspecified vessel or lesion type, unspecified whether angina present, unspecified whether [place] or transplanted heart [I25.10] Result Comment: ACCC [...] CHEST 1995;108:231S-246S. Performed By: #### L [id number] ####[facility] ([employer])[address] [place] [address] PROTHROMBIN TIME (PT) IN PPP BY COAGULATION ASSAY 22.8 Seconds High 12.3-14.8 [facility] Comment on above: Order Comment: Pre-o p diagnosis:NSTEMI (non-ST elevated myocardial infarction) (CMS/HCC) [I21.4]Acute non-ST segment elevation myocardial infarction (CMS/HCC) [I21.4]Coronary artery disease, unspecified vessel or lesion type, unspecified whether angina present, unspecified whether [place] or transplanted heart [I25.10] Performed By: #### L [id number] ####[facility] ([facility])[address] [place] [address] 36on 04-21-2023 36 Called patient and l eft voicemail. Updated NPO after midnight and not to take any medications in the AM. Surgery scheduled for 0730am. Normal [facility] ANESon 04-21-2023 ANES Normal [facility] Telephoneon 04-21-2023 Telephone [phone] Gui Ortiz 1955 M Date Provider Department [place] 04/21/2023 KAREY MAGANA [facility] [place] [facility] Family History Family history unknown: Yes Normal [facility] APTTon 04-09-2023 ACTIVATED PARTIAL THROMBOPLASTIN TIME IN PPP BY COAGULATION ASSAY 34.7 Seconds Normal 25.0-35.0 [facility] Comment on above: Result Comment: Clin ical significance of the APTT is questionable in the presence of heparin. Performed By: #### L [id number] ####[facility] ([employer])[address] [place] [address] BASIC METABOLIC PANELon 03-18 Anion gap [Moles/Vol] 11 mmol/L Normal 7-20 [facility] Comment on above: Performed By: #### L [id number] ####[facility] ([employer])[address] [place] [address] Calcium [Mass/Vol] 9.8 mg/dL Normal 8.6-10.3 [facility] Comment on above: Performed By: #### L [id number] ####[facility] ([facility])[address] [place] [address] Chloride [Moles/Vol] 105 mmol/L Normal 98-107 [facility] Comment on above: Performed By: #### L [id number] ####[facility] ([facility])[address] [place] [address] CO2 [Moles/Vol] 25 mmol/L Normal 21-31 [facility] Comment on above: Performed By: #### L [id number] ####[facility] ([facility])[address] [place] [address] Creatinine [Mass/Vol] 0.91 mg/dL Normal 0.70-1.30 [facility] Comment on above: Performed By: #### L [id number] ####[facility] ([facility])[address] [place] [address] GLOMERULAR FILTRATION RATE ML/MIN/1.73 SQ M.PREDICTED 91.2 mL/min/1.73m*2 Normal >60.0 [facility] Comment on above: Result Comment: The [facility]???s estimated glomerular filtration rate (eGFR) will no [...] of individuals. Performed By: #### L [id number] ####[facility] ([facility])[address] [place] [address] Glucose [Mass/Vol] 105 mg/dL High 70-100 [facility] Comment on above: Performed By: #### L [id number] ####[facility] ([facility])[address] [place] [address] Potassium [Moles/Vol] 3.9 mmol/L Normal 3.5-5.1 [facility] Comment on above: Performed By: #### L [id number] ####[facility] ([facility])[address] [place] [address] Sodium [Moles/Vol] 137 mmol/L Normal 136-145 [facility] Comment on above: Performed By: #### L [id number] ####[facility] ([facility])[address] [place] [address] Urea nitrogen [Mass/Vol] 15 mg/dL Normal 7-25 [facility] Comment on above: Performed By: #### L [id number] ####[facility] ([facility])[address] [place] [address] UREA NITROGEN/CREATININ E (MASS RATIO) IN SER/PLAS 16.5 Normal [facility] Comment on above: Performed By: #### L [id number] ####[facility] ([facility])[address] [place] [address] CBC WITH AUTO DIFFERENTIALon 04-09-2023 Basophils (Bld) [#/Vol] 0.05 10*3/uL Normal 0.00-0.20 [facility] Comment on above: Performed By: #### L [id number] ####[facility] ([facility])[address] [place] [address] Basophils/100 WBC (Bld) 0.8 % Normal 0.0-1.0 [facility] Comment on above: Performed By: #### L [id number] ####[facility] ([facility])[address] [place] [address] Eosinophils (Bld) [#/Vol] 0.09 10*3/uL Normal 0.00-0.50 [facility] Comment on above: Performed By: #### L [id number] ####[facility] ([facility])[address] [place] [address] Eosinophils/100 WBC (Bld) 1.4 % Normal 0.0-6.0 [facility] Comment on above: Performed By: #### L [id number] ####[facility] ([facility])[address] [place] [address] Erythrocyte distribution width (RBC) [Ratio] 13.1 % Normal 11.5-15.0 [facility] Comment on above: Performed By: #### L [id number] ####[facility] ([facility])[address] [place] [address] ERYTHROCYTE MEAN CORPUSCULAR HEMOGLOBIN CONCENTRATION (G/DL) BY AUTOMATED 33.3 g/dL Normal 32.0-35.0 [facility] Comment on above: Performed By: #### L [id number] ####[facility] ([facility])[address] [place] [address] Hematocrit (Bld) [Volume fraction] 43.0 % Normal 39.0-55.0 [facility] Comment on above: Performed By: #### L [id number] ####[facility] ([facility])[address] [place] [address] Hemoglobin (Bld) [Mass/Vol] 14.3 g/dL Normal 13.0-17.0 [facility] Comment on above: Performed By: #### L [id number] ####[facility] ([facility])[address] [place] [address] Immature granulocytes (Bld) [#/Vol] 0.03 10*3/uL Normal 0.00-0.20 [facility] Comment on above: Performed By: #### L [id number] ####[facility] ([facility])[address] [place] [address] Immature granulocytes/100 WBC (Bld) 0.5 % Normal 0.0-1.0 [facility] Comment on above: Performed By: #### L [id number] ####[facility] ([facility])[address] [place] [address] Lymphocytes (Bld) [#/Vol] 2.46 10*3/uL Normal 1.20-4.00 [facility] Comment on above: Performed By: #### L [id number] ####[facility] ([facility])[address] [place] [address] Lymphocytes/100 WBC (Bld) 38.2 % Normal 20.0-45.0 [facility] Comment on above: Performed By: #### L [id number] ####[facility] ([facility])[address] [place] [address] MCH (RBC) [Entitic mass] 30.4 pg Normal 27.0-33.0 [facility] Comment on above: Performed By: #### L [id number] ####[facility] ([facility])[address] [place] [address] MCV (RBC) [Entitic vol] 91.3 fL Normal 82.0-98.0 [facility] Comment on above: Performed By: #### L [id number] ####[facility] ([facility])[address] [place] [address] Monocytes (Bld) [#/Vol] 0.51 10*3/uL Normal 0.10-1.00 [facility] Comment on above: Performed By: #### L [id number] ####[facility] ([facility])[address] [place] [address] Monocytes/100 WBC (Bld) 7.9 % Normal 5.0-12.0 [facility] Comment on above: Performed By: #### L [id number] ####[facility] ([facility])[address] [place] [address] Neutrophils (Bld) [#/Vol] 3.30 10*3/uL Normal 1.60-7.60 [facility] Comment on above: Performed By: #### L [id number] ####[facility] ([facility])[address] [place] [address] Neutrophils/100 WBC (Bld) 51.2 % Normal 40.0-72.0 [facility] Comment on above: Performed By: #### L [id number] ####[facility] ([facility])[address] [address] NRBC (PER 100 WBCS) BY AUTOMATED COUNT 0.0 % Normal 0 [facility] Comment on above: Performed By: #### L [id number] ####[facility] ([facility])[address] [address] PLATELETS (10*3/UL) IN BLOOD AUTOMATED COUNT 281 10*3/uL Normal 150-400 [facility] Comment on above: Performed By: #### L [id number] ####[facility] ([facility])[address] [address] RBC (Bld) [#/Vol] 4.71 10*6/uL Normal 4.20-5.70 [facility] Comment on above: Performed By: #### L [id number] ####[facility] ([facility])[address] [address] WBC (Bld) [#/Vol] 6.44 10*3/uL Normal 4.00-10.60 [facility] Comment on above: Performed By: #### L [id number] ####[facility] ([facility])[address] [address] ETHANOLon 04-09-2023 ETHANOL (MG/DL) IN SER/PLAS <10 Normal [facility] Comment on above: Result Comment: No E thanol detected Performed By: #### L [id number] ####[facility] ([facility])[address] [address] ETHANOL CALCULATED (%) Normal [facility] Comment on above: Performed By: #### L [id number] ####[facility] ([facility])[address] [address] Follow-Upon 04-09-2023 Follow-Up Normal [facility] HEMOGLOBIN A1Con 04-09-2023 Glucose [Mass/Vol] 128 mg/dL Normal [facility] Comment on above: Performed By: #### L [id number] ####[facility] ([facility])[address] [place] [address] HbA1c (Bld) [Mass fraction] 6.1 % High 4.0-6.0 [facility] Comment on above: Performed By: #### L [id number] ####[facility] ([facility])[address] [place] [address] HPon 04-09-2023 HP Normal [facility] Labon 04-09-2023 Lab [id number] Gui Ortiz 1955 Date Provider Department [place] 04/09/2023 2245-[facility] RESOURCE [facility] [place] [facility] Family History Family history unknown: Yes Normal [facility] MRSA/MSSA DNA NASALon 2022 MRSA DNA Negative Normal Negative [facility] Comment on above: Order Comment: Testi ng [...] preclude nasal colonization. Performed By: #### L [id number] ####[facility] ([facility])[address] [place] [address] MSSA DNA Negative Normal Negative [facility] Comment on above: Order Comment: Testi ng [...] preclude nasal colonization. Performed By: #### L [id number] ####[facility] ([facility])[address] [place] [address] Orders Onlyon 04-09-2023 Orders Only [id number] Gui Ortiz 1955 Date Provider Department Center 04/09/2023 [facility] [place] [facility] Family History Family history unknown: Yes Normal [facility] PROTIME-INRon 04-09-2023 INR IN PPP BY COAGULATION ASSAY 1.00 Normal 0.90-1.10 [facility] Comment on above: Result Comment: ACCC P [...] CHEST 1995;[id number]. Performed By: #### L [id number] ####[facility] ([facility])[address] [place] [address] PROTHROMBIN TIME (PT) IN PPP BY COAGULATION ASSAY 13.2 Seconds Normal 12.3-14.8 [facility] Comment on above: Performed By: #### L [id number] ####[facility] ([facility])[address] [place] [address] TOXICOLOGY PANEL URINEon AMPHETAMINE+METHAM PHETAMINE SCREEN (PRESENCE) IN URINE Negative Normal Negative [facility] Comment on above: Performed By: #### L [id number] ####[facility] ([facility])[address] [place] [address] BARBITURATES PRESENCE IN URINE BY SCREEN METHOD Negative Normal Negative [facility] Comment on above: Performed By: #### L [id number] ####[facility] ([facility])[address] [place] [address] Benzodiazepines Ql (U) Negative Normal Negative [facility] Comment on above: Performed By: #### L [id number] ####[facility] ([facility])[address] [place] [address] CANNABINOID (PRESENCE) IN URINE BY SCREEN METHOD Negative Normal Negative [facility] Comment on above: Performed By: #### L [id number] ####[facility] ([facility])[address] [place] [address] Cocaine Ql (U) Negative Normal Negative [facility] Comment on above: Performed By: #### L [id number] ####[facility] ([facility])[address] [place] [address] METHADONE (PRESENCE) IN URINE BY SCREEN METHOD Normal [facility] Comment on above: Result Comment: Meth adone being sent out. Results to follow. Performed By: #### L [id number] ####[facility] ([facility])[address] [place] [address] OPIATES (PRESENCE) IN URINE BY SCREEN METHOD Negative Normal Negative [facility] Comment on above: Performed By: #### L [id number] ####[facility] ([facility])[address] [place] [address] PHENCYCLIDINE PRESENCE IN URINE BY SCREEN METHOD Negative Normal Negative [facility] Comment on above: Performed By: #### L [id number] ####[facility] ([facility])[address] [place] [address] Propoxyphene Screen Ql (U) Negative Normal Negative [facility] Comment on above: Performed By: #### L [id number] ####[facility] ([facility])[address] [place] [address] TRICYCLIC ANTIDEPRESSANTS (PRESENCE) IN URINE Negative Normal Negative [facility] Comment on above: Performed By: #### L [id number] ####[facility] ([facility])[address] [place] [address] TYPE AND SCREENon 04-09-2023 AB SCREEN Negative Normal [facility] Comment on above: Performed By: #### L [id number] ####[facility], ABO group Nom (Bld) O Normal [facility] Comment on above: Performed By: #### L [id number] ####[facility], RH TYPE IN BLOOD Positive Normal [facility] Comment on above: Performed By: #### L [id number] ####[facility], URINALYSISon 04-09-2023 BILIRUBIN, TOTAL PRESENCE IN URINE Negative Normal Negative [facility] Comment on above: Performed By: #### L [id number] ####[facility] ([facility])[address] [place] [address] Clarity (U) Clear Normal Clear [facility] Comment on above: Performed By: #### L [id number] ####[facility] ([facility])[address] [place] [address] Color (U) Yellow Normal Yellow [facility] Comment on above: Performed By: #### L [id number] ####[facility] ([facility])[address] [place] [address] Glucose (U) [Mass/Vol] Negative Normal Negative [facility] Comment on above: Performed By: #### L [id number] ####[facility] ([facility])[address] [place] [address] HEMOGLOBIN PRESENCE IN URINE Small Abnormal Negative [facility] Comment on above: Performed By: #### L [id number] ####[facility] ([facility])[address] [place] [address] Ketones Ql (U) Negative Normal Negative [facility] Comment on above: Performed By: #### L [id number] ####[facility] ([facility])[address] [place] [address] LEUKOCYTE ESTERASE PRESENCE IN URINE BY TEST STRIP Negative Normal Negative [facility] Comment on above: Performed By: #### L [id number] ####[facility] ([facility])[address] [place] [address] NITRITE PRESENCE IN URINE Negative Normal Negative [facility] Comment on above: Performed By: #### L [id number] ####[facility] ([facility])[address] [place] [address] pH (U) 6.0 [pH] Normal 5.0-8.0 [facility] Comment on above: Performed By: #### L [id number] ####[facility] ([facility])[address] [place] [address] Protein (U) [Mass/Vol] Negative Normal Negative [facility] Comment on above: Performed By: #### L [id number] ####[facility] ([facility])[address] [place] [address] Specific gravity (U) [Rel density] 1.012 Low 1.015-1.020 [facility] Comment on above: Performed By: #### L [id number] ####[facility] ([facility])[address] [place] [address] URINALYSIS MICROSCOPICon CASTS IN URINE Normal [facility] Comment on above: Performed By: #### L [id number] ####[facility] ([facility])[address] [place] [address] CRYSTALS IN URINE Normal [facility] Comment on above: Performed By: #### L [id number] ####[facility] ([facility])[address] [place] [address] RBC (#/HPF) IN URINE SEDIMENT 3-5 Abnormal None Seen [facility] Comment on above: Performed By: #### L [id number] ####[facility] ([facility])[address] [place] [address] SQUAMOUS EPITHELIAL CELLS (#/HPF) IN URINE SEDIMENT None Seen Normal None Seen, Occasional [facility] Comment on above: Performed By: #### L [id number] ####[facility] ([facility])[address] [place] [address] WBC (LEUKOCYTE) (#/HPF) IN URINE SEDIMENT None Seen Normal None Seen [facility] Comment on above: Performed By: #### L [id number] ####[facility] ([facility])[address] [address] Documentationon 04-01-2023 Documentation Normal [facility] 30on 03-23-2023 30 Normal [facility] 30 Normal [facility] 30 Normal [facility] ANTI-XA (HEPARIN LEVEL)on HEPARIN UNFRACTIONATED (U/ML) IN PPP BY CHROMOGENIC METHOD <0.10 Invalid Interpretation Code 0.3-0.7 [facility] Comment on above: Order Comment: Check anti-Xa level every 6 hours while on heparin infusion, or per protocol. Result Comment: Newman roxaban and Apixaban will interfere with the anti Xa assay used to monitor UFH and LMWH. Performed By: #### L [id number] ####[facility] ([facility])[address] [place] [address] BASIC METABOLIC PANELon 10-0 Anion gap [Moles/Vol] 11 mmol/L Normal 7-20 [facility] Comment on above: Performed By: #### L [id number] ####[facility] ([facility])[address] [place] [address] Calcium [Mass/Vol] 9.1 mg/dL Normal 8.6-10.3 [facility] Comment on above: Performed By: #### L [id number] ####[facility] ([facility])[address] [place] [address] Chloride [Moles/Vol] 107 mmol/L Normal 98-107 [facility] Comment on above: Performed By: #### L [id number] ####[facility] ([facility])[address] [place] [address] CO2 [Moles/Vol] 23 mmol/L Normal 21-31 [facility] Comment on above: Performed By: #### L [id number] ####[facility] ([facility])[address] [place] [address] Creatinine [Mass/Vol] 0.85 mg/dL Normal 0.70-1.30 [facility] Comment on above: Performed By: #### L [id number] ####[facility] ([facility])[address] [place] [address] GLOMERULAR FILTRATION RATE ML/MIN/1.73 SQ M.PREDICTED 94.1 mL/min/1.73m*2 Normal >60.0 [facility] Comment on above: Result Comment: The [facility]???s estimated glomerular filtration rate (eGFR) will no [...] of individuals. Performed By: #### L [id number] ####[facility] ([facility])[address] [place] [address] Glucose [Mass/Vol] 103 mg/dL High 70-100 [facility] Comment on above: Performed By: #### L [id number] ####[facility] ([facility])[address] [place] [address] Potassium [Moles/Vol] 3.8 mmol/L Normal 3.5-5.1 [facility] Comment on above: Performed By: #### L [id number] ####[facility] ([facility])[address] [place] [address] Sodium [Moles/Vol] 137 mmol/L Normal 136-145 [facility] Comment on above: Performed By: #### L [id number] ####[facility] ([facility])[address] [place] [address] Urea nitrogen [Mass/Vol] 12 mg/dL Normal 7-25 [facility] Comment on above: Performed By: #### L [id number] ####[facility] ([facility])[address] [place] [address] UREA NITROGEN/CREATININ E (MASS RATIO) IN SER/PLAS 14.1 Normal [facility] Comment on above: Performed By: #### L [id number] ####[facility] ([facility])[address] [place] [address] CBCon 03-23-2023 Erythrocyte distribution width (RBC) [Ratio] 13.0 % Normal 11.5-15.0 [facility] Comment on above: Performed By: #### L [id number] ####[facility] ([facility])[address] [place] [address] ERYTHROCYTE MEAN CORPUSCULAR HEMOGLOBIN CONCENTRATION (G/DL) BY AUTOMATED 34.5 g/dL Normal 32.0-35.0 [facility] Comment on above: Performed By: #### L [id number] ####[facility] ([facility])[address] [place] [address] Hematocrit (Bld) [Volume fraction] 41.4 % Normal 39.0-55.0 [facility] Comment on above: Performed By: #### L [id number] ####[facility] ([facility])[address] [place] [address] Hemoglobin (Bld) [Mass/Vol] 14.3 g/dL Normal 13.0-17.0 [facility] Comment on above: Performed By: #### L [id number] ####[facility] ([facility])[address] [place] [address] MCH (RBC) [Entitic mass] 30.4 pg Normal 27.0-33.0 [facility] Comment on above: Performed By: #### L [id number] ####[facility] ([facility])[address] [place] [address] MCV (RBC) [Entitic vol] 87.9 fL Normal 82.0-98.0 [facility] Comment on above: Performed By: #### L [id number] ####[facility] ([facility])[address] [place] [address] PLATELETS (10*3/UL) IN BLOOD AUTOMATED COUNT 243 10*3/uL Normal 150-400 [facility] Comment on above: Performed By: #### L [id number] ####[facility] ([facility])[address] [place] [address] RBC (Bld) [#/Vol] 4.71 10*6/uL Normal 4.20-5.70 [facility] Comment on above: Performed By: #### L [id number] ####[facility] ([facility])[address] [place] [address] WBC (Bld) [#/Vol] 6.84 10*3/uL Normal 4.00-10.60 [facility] Comment on above: Performed By: #### L [id number] ####[facility] ([facility])[address] [place] [address] CT HEAD WO IV CONTRASTon CT HEAD WO IV CONTRAST Normal [facility] CTA CHEST W AND/OR WO IV CON TRASTon 03-23-2023 CTA CHEST W AND/OR WO IV CONTRAST Normal [facility] DSon 03-23-2023 DS Normal [facility] 30on 03-22-2023 30 Normal [facility] 30 Normal [facility] ANESon 03-22-2023 ANES Normal [facility] APTTon 03-22-2023 ACTIVATED PARTIAL THROMBOPLASTIN TIME IN PPP BY COAGULATION ASSAY 36.2 Seconds High 25.0-35.0 [facility] Comment on above: Order Comment: Basel ine aPTT before initiating heparin infusion. Result Comment: Clin ical significance of the APTT is questionable in the presence of heparin. Performed By: #### L [id number] ####[facility] ([facility])[address] [place] [address] BASIC METABOLIC PANELon 10-0 Anion gap [Moles/Vol] 9 mmol/L Normal 7-20 [facility] Comment on above: Performed By: #### L [id number] ####[facility] ([facility])[address] [place] [address] Calcium [Mass/Vol] 8.9 mg/dL Normal 8.6-10.3 [facility] Comment on above: Performed By: #### L [id number] ####[facility] ([facility])[address] [place] [address] Chloride [Moles/Vol] 111 mmol/L High 98-107 [facility] Comment on above: Performed By: #### L [id number] ####[facility] ([facility])[address] [place] [address] CO2 [Moles/Vol] 22 mmol/L Normal 21-31 [facility] Comment on above: Performed By: #### L [id number] ####[facility] ([facility])[address] [place] [address] Creatinine [Mass/Vol] 0.79 mg/dL Normal 0.70-1.30 [facility] Comment on above: Performed By: #### L [id number] ####[facility] ([facility])[address] [place] [address] GLOMERULAR FILTRATION RATE ML/MIN/1.73 SQ M.PREDICTED 96.2 mL/min/1.73m*2 Normal >60.0 [facility] Comment on above: Result Comment: The [facility]???s estimated glomerular filtration rate (eGFR) will no [...] of individuals. Performed By: #### L [id number] ####[facility] ([facility])[address] [place] [address] Glucose [Mass/Vol] 112 mg/dL High 70-100 [facility] Comment on above: Performed By: #### L [id number] ####[facility] ([facility])[address] [place] [address] Potassium [Moles/Vol] 3.9 mmol/L Normal 3.5-5.1 [facility] Comment on above: Performed By: #### L [id number] ####[facility] ([facility])[address] [place] [address] Sodium [Moles/Vol] 138 mmol/L Normal 136-145 [facility] Comment on above: Performed By: #### L [id number] ####[facility] ([facility])[address] [place] [address] Urea nitrogen [Mass/Vol] 12 mg/dL Normal 7-25 [facility] Comment on above: Performed By: #### L [id number] ####[facility] ([facility])[address] [place] [address] UREA NITROGEN/CREATININ E (MASS RATIO) IN SER/PLAS 15.2 Normal [facility] Comment on above: Performed By: #### L [id number] ####[facility] ([facility])[address] [place] [address] CBCon 03-22-2023 Erythrocyte distribution width (RBC) [Ratio] 13.2 % Normal 11.5-15.0 [facility] Comment on above: Performed By: #### L [id number] ####[facility] ([facility])[address] [place] [address] ERYTHROCYTE MEAN CORPUSCULAR HEMOGLOBIN CONCENTRATION (G/DL) BY AUTOMATED 33.7 g/dL Normal 32.0-35.0 [facility] Comment on above: Performed By: #### L [id number] ####[facility] ([facility])[address] [place] [address] Hematocrit (Bld) [Volume fraction] 40.3 % Normal 39.0-55.0 [facility] Comment on above: Performed By: #### L [id number] ####[facility] ([facility])[address] [place] [address] Hemoglobin (Bld) [Mass/Vol] 13.6 g/dL Normal 13.0-17.0 [facility] Comment on above: Performed By: #### L [id number] ####[facility] ([facility])[address] [address] MCH (RBC) [Entitic mass] 30.5 pg Normal 27.0-33.0 [facility] Comment on above: Performed By: #### L [id number] ####[facility] ([facility])[address] [place] [address] MCV (RBC) [Entitic vol] 90.4 fL Normal 82.0-98.0 [facility] Comment on above: Performed By: #### L [id number] ####[facility] ([facility])[address] [place] [address] PLATELETS (10*3/UL) IN BLOOD AUTOMATED COUNT 241 10*3/uL Normal 150-400 [facility] Comment on above: Performed By: #### L [id number] ####[facility] ([facility])[address] [place] [address] RBC (Bld) [#/Vol] 4.46 10*6/uL Normal 4.20-5.70 [facility] Comment on above: Performed By: #### L [id number] ####[facility] ([facility])[address] [place] [address] WBC (Bld) [#/Vol] 6.03 10*3/uL Normal 4.00-10.60 [facility] Comment on above: Performed By: #### L [id number] ####[facility] ([facility])[address] [place] [address] CONSULTon 03-22-2023 CONSULT Normal [facility] CONSULT Normal [facility] CT CHEST WO IV CONTRASTon CT CHEST WO IV CONTRAST Normal [facility] HEMOGLOBIN A1Con 03-22-2023 Glucose [Mass/Vol] 126 mg/dL Normal [facility] Comment on above: Performed By: #### L [id number] ####[facility] ([facility])[address] [place] [address] HbA1c (Bld) [Mass fraction] 6.0 % Normal 4.0-6.0 [facility] Comment on above: Performed By: #### L [id number] ####[facility] ([facility])[address] [place] [address] HPon 03-22-2023 HP H&P reviewed. The laurie putnam was examined and there are no changes to the H&P. Will proceed with coronary angiogram for chest pain and elevated high sensitivity troponin. Normal [facility] LIPID PANELon 03-22-2023 CHOL/HDL 4.9 mg/dL Normal [facility] Comment on above: Performed By: #### L [id number] ####[facility] ([facility])[address] [place] [address] Cholesterol [Mass/Vol] 138 mg/dL Normal 120-200 [facility] Comment on above: Performed By: #### L [id number] ####[facility] ([facility])[address] [place] [address] Magnesium [Mass/Vol] 107 mg/dL Normal 40-149 [facility] Comment on above: Result Comment: TRIG LYCERIDE REFERENCE RANGE:20 YEARS AND OLDER CARDIOVASCULAR RISKLESS THAN 150 mg/dL LOW [id number] TO 199 mg/dL BORDERLINE [id number] mg/dL AND GREATER HIGH RISK Performed By: #### L [id number] ####[facility] ([facility])[address] [place] [address] Magnesium [Mass/Vol] 89 mg/dL Normal 0-160 [facility] Comment on above: Performed By: #### L [id number] ####[facility] ([facility])[address] [place] [address] Magnesium [Mass/Vol] 28 mg/dL Normal 23-92 [facility] Comment on above: Performed By: #### L [id number] ####[facility] ([facility])[address] [place] [address] NON HDL CHOL. (LDL+VLDL) 110 Normal [facility] Comment on above: Performed By: #### L [id number] ####[facility] ([facility])[address] [place] [address] TOTAL VLDL-C 21 mg/dL Normal 0-40 [facility] Comment on above: Performed By: #### L [id number] ####[facility] ([facility])[address] [place] [address] MRSA/MSSA DNA NASALon 2022 MRSA DNA Negative Normal Negative [facility] Comment on above: Order Comment: Testi ng [...] preclude nasal colonization. Performed By: #### L [id number] ####[facility] ([facility])[address] [place] [address] MSSA DNA Negative Normal Negative [facility] Comment on above: Order Comment: Testi ng [...] preclude nasal colonization. Performed By: #### L [id number] ####[facility] ([facility])[address] [place] [address] TROPONIN Ion 03-22-2023 Troponin I.cardiac [Mass/Vol] 0.03 ng/mL Normal 0.00-0.04 [facility] Comment on above: Performed By: #### L [id number] ####[facility] ([facility])[address] [place] [address] Troponin I.cardiac [Mass/Vol] 0.04 ng/mL Normal 0.00-0.04 [facility] Comment on above: Performed By: #### L [id number] ####[facility] ([facility])[address] [place] [address] TSH3 REFLEX TO FT4on 023 THYROTROPIN (MIU/L) IN SER/PLAS BY DETECTION LIMIT <= 0.05 MIU/L 2.07 mIU/L Normal 0.34-5.60 [facility] Comment on above: Performed By: #### L [id number] ####[facility] ([facility])[address] [place] [address] URINALYSISon 03-22-2023 BILIRUBIN, TOTAL PRESENCE IN URINE Negative Normal Negative [facility] Comment on above: Performed By: #### L [id number] ####[facility] ([facility])[address] [place] [address] Clarity (U) Clear Normal Clear [facility] Comment on above: Performed By: #### L [id number] ####[facility] ([facility])[address] [place] [address] Color (U) Yellow Normal Yellow [facility] Comment on above: Performed By: #### L [id number] ####[facility] ([facility])[address] [place] [address] Glucose (U) [Mass/Vol] Negative Normal Negative [facility] Comment on above: Performed By: #### L [id number] ####[facility] ([facility])[address] [place] [address] HEMOGLOBIN PRESENCE IN URINE Small Abnormal Negative [facility] Comment on above: Performed By: #### L [id number] ####[facility] ([facility])[address] [place] [address] Ketones Ql (U) Negative Normal Negative [facility] Comment on above: Performed By: #### L [id number] ####[facility] ([facility])[address] [place] [address] LEUKOCYTE ESTERASE PRESENCE IN URINE BY TEST STRIP Negative Normal Negative [facility] Comment on above: Performed By: #### L [id number] ####[facility] ([facility])[address] [place] [address] NITRITE PRESENCE IN URINE Negative Normal Negative [facility] Comment on above: Performed By: #### L [id number] ####[facility] ([facility])[address] [place] [address] pH (U) 6.0 [pH] Normal 5.0-8.0 [facility] Comment on above: Performed By: #### L [id number] ####[facility] ([facility])[address] [place] [address] Protein (U) [Mass/Vol] Negative Normal Negative [facility] Comment on above: Performed By: #### L [id number] ####[facility] ([facility])[address] [place] [address] Specific gravity (U) [Rel density] 1.049 High 1.015-1.020 [facility] Comment on above: Performed By: #### L [id number] ####[facility] ([facility])[address] [place] [address] URINALYSIS MICROSCOPICon CASTS IN URINE Normal [facility] Comment on above: Performed By: #### L [id number] ####[facility] ([facility])[address] [place] [address] CRYSTALS IN URINE Normal [facility] Comment on above: Performed By: #### L [id number] ####[facility] ([facility])[address] [place] [address] RBC (#/HPF) IN URINE SEDIMENT 6-10 Abnormal None Seen [facility] Comment on above: Performed By: #### L [id number] ####[facility] ([facility])[address] [place] [address] SQUAMOUS EPITHELIAL CELLS (#/HPF) IN URINE SEDIMENT Few Abnormal None Seen, Occasional [facility] Comment on above: Performed By: #### L [id number] ####[facility] ([facility])[address] [place] [address] WBC (LEUKOCYTE) (#/HPF) IN URINE SEDIMENT None Seen Normal None Seen [facility] Comment on above: Performed By: #### L [id number] ####[facility] ([facility])[address] [place] [address] 30on 03-21-2023 30 Normal [facility] D-DIMER, QUANTITATIVEon FIBRIN D-DIMER (UG/L FEU) IN PLATELET POOR PLASMA 0.36 mcg/mL FEU Normal 0.27-0.49 [facility] Comment on above: Order Comment: D-Dim er values of less than 0.50 ug/ml (FEU) are considered to be a negative predictor of thrombosis. However, the D-Dimer result should be used in conjunction with pretest probability and should not be used alone to diagnose a thrombotic event. Performed By: #### L [id number] ####[facility] ([facility])[address] [place] [address] HPon 03-21-2023 HP Normal [facility] Reportson 02-12-2023 Lab Reports [id number]#[id number]:127 Normal [facility] Screenson 01-30-2023 Screens [id number]#[id number]:127 Normal [facility] Ambulatory Visit Summaryon 0 01-29-2023 Ambulatory Visit Summary GUI ORTIZ SR :1955 Visit Date:01/29/2023 Ambulatory Visit Instructions Your Diagnosis Elevated PSA 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 Tests Performed Urnls Dip Stick Auto w/o Microscopy POC 84325 Your Care Team Attending Physician - DAKSHA [...] ELIZABETH LINDSAY PA-C Where: [facility] Urology Office/Clinic Noteon 01-29-2023 Urology Office/Clinic Note [...] ELIZABETH LINDSAY PA-C, URL In 1 year [address] [place] [address] Additional Instructions: w/PSA Patient Education Documentation recorded [...] Protein Urine Dipstick: Negative (01/29/23 14:37:00) Specific [place] Urine Dipstick: 1.025 (01/29/23 14:37:00) Urine Appearance Urine Dipstick: Clear (01/29/23 14:37:00) Urine Color Urine Dipstick: Yellow (01/29/23 14:37:00) pH Urine Dips (more content not included)... Normal [facility] Comment on above: Result Comment: Elec tronically [...] by: GARCIA GALLEGOS Date: 2022-08-04 17:12 Normal [facility] CT LUNG CANCER SCREENINGon 0 07-26-2022 [...] by: DAVID EL Date: 2022-07-26 07:42 Normal [facility] INSULINon 07-26-2022 Insulin 4.0 uIU/mL Normal 2.6-24.9 [facility] Comment on above: Performed By: #### I NSULIN #### Laboratory [address] [place] [address] Dr. Rehana Martinez CBC AUTO DIFFon 07-25-2022 BASO # 0.0 103/ul Normal 0.0-0.1 [facility] Comment on above: Performed By: #### C BC #### Laboratory [address] [address] [address] Rehana Martinez Basophils/100 WBC (Bld) 0.2 % Normal 0.2-2.0 [facility] Comment on above: Performed By: #### C BC #### Laboratory [address] [place] [address] Dr. Rehana Martinez EO # 0.1 103/ul Normal 0.0-0.7 [facility] Comment on above: Performed By: #### C BC #### Laboratory [address] [place] [address] Dr. Rehana Martinez Eosinophils/100 WBC (Bld) 0.5 % Critically low 0.9-7.0 [facility] Comment on above: Performed By: #### C BC #### Laboratory [address] [place] [address] Dr. Rehana Martinez Erythrocyte distribution width (RBC) [Ratio] 13.6 % Normal 11.0-15.0 [facility] Comment on above: Performed By: #### C BC #### Laboratory [address] [place] [address] Dr. Rehana Martinez Hematocrit (Bld) [Volume fraction] 45.6 % Normal 42.0-54.0 [facility] Comment on above: Performed By: #### C BC #### Laboratory [address] [place] [address] Dr. Rehana Martinez Hemoglobin (Bld) [Mass/Vol] 15.1 g/dL Normal 14.0-18.0 [facility] Comment on above: Performed By: #### C BC #### Laboratory [address] [place] [address] Dr. Rehana Martinez IG # 0.04 10e3/ul Critically high 0.00-0.03 [facility] Comment on above: Performed By: #### C BC #### Laboratory [address] [place] [address] Dr. Rehana Martinez IG % 0.4 % Normal 0.0-0.5 [facility] Comment on above: Performed By: #### C BC #### Laboratory [address] [place] [address] Dr. Rehana Martinez LYMPH # 1.7 103/ul Normal 1.2-3.8 [facility] Comment on above: Performed By: #### C BC #### Laboratory [address] [place] [address] Dr. Rehana Martinez Lymphocytes/100 WBC (Bld) 17.9 % Critically low 20.5-60.0 [facility] Comment on above: Performed By: #### C BC #### Laboratory [address] [place] [address] Dr. eRhana Martinez MANUAL DIFF REQ NO Normal [facility] Comment on above: Performed By: #### C BC #### Laboratory [address] [place] [address] Dr. Rehana Martinez MCH (RBC) [Entitic mass] 30.8 pg Normal 25.9-34.0 [facility] Comment on above: Performed By: #### C BC #### Laboratory [address] [place] [address] Dr. Rehana Martinez MCHC (RBC) [Mass/Vol] 33.1 g/dL Normal 29.9-35.2 [facility] Comment on above: Performed By: #### C BC #### Laboratory [address] [place] [address] Dr. Rehana Martinez MCV (RBC) [Entitic vol] 92.9 fL Normal 80.0-94.0 [facility] Comment on above: Performed By: #### C BC #### Laboratory [address] [place] [address] Dr. Rehana Martinez MONO # 1.1 103/ul Critically high 0.3-0.8 [facility] Comment on above: Performed By: #### C BC #### Laboratory [address] [place] [address] Dr. Rehana Martinez Monocytes/100 WBC (Bld) 11.2 % Normal 1.7-12.0 [facility] Comment on above: Performed By: #### C BC #### Laboratory [address] [place] [address] Dr. Rehana Martinez NEUT # 6.7 103/ul Critically high 1.4-6.5 [facility] Comment on above: Performed By: #### C BC #### Laboratory [address] [address] [address] Rehana Martinez Neutrophils/100 WBC (Bld) 69.8 % Normal 43.0-75.0 [facility] Comment on above: Performed By: #### C BC #### Laboratory [address] [address] [address] Rehana Martinez Platelet mean volume (Bld) [Entitic vol] 8.7 fL Critically low 9.5-13.5 [facility] Comment on above: Performed By: #### C BC #### Laboratory [address] [address] [address] Rehana Martinez PLT 226 103/ul Normal 150-450 [facility] Comment on above: Performed By: #### C BC #### Laboratory [address] [address] [address] Rehana Martinez RBC 4.91 106/ul Normal 4.70-6.10 [facility] Comment on above: Performed By: #### C BC #### Laboratory [address] [address] [address] Rehana Martinez WBC 9.6 103/ul Normal 4.0-11.0 [facility] Comment on above: Performed By: #### C BC #### Laboratory [address] [address] [address] Rehana Martinez FREE THYROXINE INDEX T7on FTI 3.37 Normal 1.30-4.50 [facility] Comment on above: Performed By: #### L IPID, CMP, TSH, URIC, T7 #### [id number] [id number]. Rehana Martinez T3U 37.0 % Normal 33.0-40.0 [facility] Comment on above: Performed By: #### L IPID, CMP, TSH, URIC, T7 #### [id number] [id number]. Rehana Martinez T4 [Mass/Vol] 9.10 ug/dL Normal 4.50-12.10 [facility] Comment on above: Performed By: #### L IPID, CMP, TSH, URIC, T7 #### [id number] [place], [place] [address]QnDr. Rehana Martinez GLYCOHEMOGLOBIN A1Con 2022 ADA RECOMMENDATION SEE BELOW Normal [facility] Comment on above: Result Comment: ADA RECOMMENDED LIMIT 4.0 - 6.0 ADA THERAPEUTIC TARGET < 7.0 ACTION SUGGESTED > 7.0 Performed By: #### A 1C #### Laboratory [address] [address] [address] Rehana Martinez Glucose [Mass/Vol] 128 mg/dL Normal [facility] Comment on above: Performed By: #### A 1C #### Laboratory [address] [address] [address] Rehana Martinez HbA1c (Bld) [Mass fraction] 6.1 % Normal 4.5-6.2 [facility] Comment on above: Performed By: #### A 1C #### Laboratory [address] [address] [address] Rehana Martinez LIPID PROFILEon 07-25-2022 CHOL-HDL RATIO NORM SEE BELOW Normal [facility] Comment on above: Result Comment: 3.3 - 4.4 LOW RISK 4.4 - 7.1 AVERAGE RISK 7.1 - 11.0 MODERATE RISK >11.0 HIGH RISK Performed By: #### L IPID, CMP, TSH, URIC, T7 #### [id number] [place], [place] [address]DtDr. Rehana Martinez Cholesterol [Mass/Vol] 137 mg/dL Normal <=200 [facility] Comment on above: Performed By: #### L IPID, CMP, TSH, URIC, T7 #### [id number] [place], [place] [address]IfDr. Rehana Martinez Cholesterol in HDL [Mass/Vol] 44 mg/dL Normal 40-60 [facility] Comment on above: Performed By: #### L IPID, CMP, TSH, URIC, T7 #### [id number] [place] [address] [id number]. Rehana Martinez Cholesterol in LDL [Mass/Vol] 75.6 mg/dL Normal [facility] Comment on above: Performed By: #### L IPID, CMP, TSH, URIC, T7 #### [id number] [place], [place] [address]Dm. Rehana Martinez Cholesterol.total/ Cholesterol in HDL [Mass ratio] 3.1 {ratio} Normal The Comment on above: Performed By: #### L IPID, CMP, TSH, URIC, T7 #### [id number] [place] [id number]. Rehana Martinez HDL NORMAL > or = 60 mg/dl - LO W CARDIOVASCULAR RISK <40 mg/dl - HIGH CARDIOVASCULAR RISK Normal [facility] Comment on above: Performed By: #### L IPID, CMP, TSH, URIC, T7 #### [id number] [place] [address]Dr. Rehana Martinez LDL CALC NORMAL SEE BELOW Normal [facility] Comment on above: Result Comment: <100 mg/dl OPTIMAL 100 - 129 mg/dl NEAR OR ABOVE OPTIMAL 130 - 159 mg/dl BORDERLINE HIGH 160 - 189 mg/dl HIGH >190 mg/dl VERY HIGH Performed By: #### L IPID, CMP, TSH, URIC, T7 #### [id number] [place] [address]Dr. Rehana Martinez Triglyceride [Mass/Vol] 87 mg/dL Normal <=150 The Comment on above: Performed By: #### L IPID, CMP, TSH, URIC, T7 #### [id number] [place], [place] [address]Ui. Rehana Martinez VLDL CALC 17.4 mg/dL Normal [facility] Comment on above: Performed By: #### L IPID, CMP, TSH, URIC, T7 #### [id number] [place] [address]Dr. Rehana Martinez PROF 14(COMP METB)on 023 Albumin [Mass/Vol] 3.3 g/dL Critically low 3.4-5.0 [facility] Comment on above: Performed By: #### L IPID, CMP, TSH, URIC, T7 #### [id number] [address]Dr. Rehana Martinez Albumin/Globulin [Mass ratio] 0.9 {ratio} Normal [facility] Comment on above: Performed By: #### L IPID, CMP, TSH, URIC, T7 #### [id number] [address]Dr. Rehana Martinez ALP [Catalytic activity/Vol] 105 U/L Normal 46-116 [facility] Comment on above: Performed By: #### L IPID, CMP, TSH, URIC, T7 #### [id number] [place], [place] [address]Dr. Rehana Martinez ALT [Catalytic activity/Vol] 16 U/L Normal 16-63 [facility] Comment on above: Performed By: #### L IPID, CMP, TSH, URIC, T7 #### [id number] [place], [place] [address]Dr. Rehana Martinez Anion gap [Moles/Vol] 11.8 mmol/L Normal [facility] Comment on above: Performed By: #### L IPID, CMP, TSH, URIC, T7 #### [id number] [place], [place] [address]Dr. Rehana Martinez AST [Catalytic activity/Vol] 16 U/L Normal 15-37 [facility] Comment on above: Performed By: #### L IPID, CMP, TSH, URIC, T7 #### [id number] [address]Dr. Rehana Martinez Bilirubin [Mass/Vol] 0.6 mg/dL Normal 0.2-1.0 [facility] Comment on above: Performed By: #### L IPID, CMP, TSH, URIC, T7 #### [id number] [address]Dr. Floriirene Martinez Calcium [Mass/Vol] 9.1 mg/dL Normal 8.5-10.1 [facility] Comment on above: Performed By: #### L IPID, CMP, TSH, URIC, T7 #### [id number] [address]Dr. Rehana Martinez Chloride [Moles/Vol] 103 mmol/L Normal 98-107 The Comment on above: Performed By: #### L IPID, CMP, TSH, URIC, T7 #### [id number] [address]Dr. Rehana Martinez CO2 [Moles/Vol] 26.0 mmol/L Normal 21.0-32.0 [facility] Comment on above: Performed By: #### L IPID, CMP, TSH, URIC, T7 #### [id number] [place], [place] [address]Dr. Rehana Martinez Creatinine [Mass/Vol] 0.94 mg/dL Normal 0.70-1.30 [facility] Comment on above: Performed By: #### L IPID, CMP, TSH, URIC, T7 #### [id number] [place], [place] [address]Dr. Rehana Martinez EGFR-AF BULGARIAN >60 Normal >=60 [facility] Comment on above: Performed By: #### L IPID, CMP, TSH, URIC, T7 #### [id number] [place], [place] [address]Dr. Rehana Martinez EGFR-NON AF BULGARIAN >60 Normal >=60 [facility] Comment on above: Performed By: #### L IPID, CMP, TSH, URIC, T7 #### [id number] [place], [place] [address]Dr. Rehana Martinez Globulin (S) [Mass/Vol] 3.8 g/dL Normal The Comment on above: Performed By: #### L IPID, CMP, TSH, URIC, T7 #### [id number] [place], [place] [address]Dr. Rehana Martinez Glucose [Mass/Vol] 109 mg/dL Critically high 74-106 [facility] Comment on above: Performed By: #### L IPID, CMP, TSH, URIC, T7 #### [id number] [address]Dr. Rehana Martinez Potassium [Moles/Vol] 3.8 mmol/L Normal 3.5-5.1 The Comment on above: Performed By: #### L IPID, CMP, TSH, URIC, T7 #### [id number] [address]Dr. Rehana Martinez Protein [Mass/Vol] 7.1 g/dL Normal 6.4-8.2 [facility] Comment on above: Performed By: #### L IPID, CMP, TSH, URIC, T7 #### [id number] [place], [place] [address]Dr. Rehana Martinez Sodium [Moles/Vol] 137 mmol/L Normal 136-145 [facility] Comment on above: Performed By: #### L IPID, CMP, TSH, URIC, T7 #### [id number] [place], [place] [address]Dr. Rehana Martinez Urea nitrogen [Mass/Vol] 17.0 mg/dL Normal 7.0-18.0 The Comment on above: Performed By: #### L IPID, CMP, TSH, URIC, T7 #### [id number] [place], [place] [address]Dr. Rehana Martinez Urea nitrogen/Creatinin e [Mass ratio] 18.1 mg/mg Normal The Comment on above: Performed By: #### L IPID, CMP, TSH, URIC, T7 #### [id number] [place], [place] [address]Dr. Rehana Martinez TSHon 07-25-2022 TSH 1.619 uIU/mL Normal 0.358-3.740 [facility] Comment on above: Performed By: #### L IPID, CMP, TSH, URIC, T7 #### [id number] [place], [place] [address]Dr. Rehana Martinez URIC ACID SERUMon 07-25-2022 Urate [Mass/Vol] 5.7 mg/dL Normal 3.5-7.2 [facility] Comment on above: Performed By: #### L IPID, CMP, TSH, URIC, T7 #### Laboratory [address] [place], [place] [address] Dr. Rehana Martinez [facility] Fish and Urine Cyt o ([facility])on 04-06-2022 UVFISH & UC Diagnosis Info Invalid Interpretation Code [facility] Comment on above: Result Comment: A:Ur ine,Urine:Voided [...] on: 03/29/2022 10:51:08 Performed By: #### 1 [id number] ####[facility] [id number] [place] [address] Patient Educationon 03-27-20 Patient Education Urology Benign [...] Follow these instructions at home: ? Take bksb-oyt-ckkadgn and prescription medicines only as told by [...] You d (more content not included)... Normal [facility] Urology Office/Clinic Noteon 03-27-2022 Urology Office/Clinic Note [...] Monica Menendez, [facility] [address] [place] [address]- Additional Instructions: 6 mos PSA free & [...] Social Hist (more content not included)... Normal [facility] Comment on above: Result Comment: Elec tronically Signed By: Casper RAUSCH MD\.br\Date and Time Signed: 03/27/22 10:34 EDT\.br\Electronically Co-Signed By: Inga Woodruff\.br\Date and Time Co-Signed: 03/27/22 10:32 EDT Coding Summary.on 03-22-2022 Coding Summary. CD:[id number] Gh0bWw+ PGhlYWQ+XN0XPVBiT33hlTUreR9 HR5iFKM4ONQOMINSIVZ8ZUK1vpI J9FZryZ2DtjwBf QknfuNCbGM43ZOk3ZLY7dSgvDZz hoN7zoWQpU1r3OjJnOM50cW78BM dxJAZtRyX2SrMssvdciATx H0roElHmuVApHcp+PHRhYmxlIHd bYBIxTNdlOWBrXkGhtWcbLH3uMs 9yZGVyLWNvbGxhcHNlOiBj d4xfFTQjHEkvJI3ujArbG8AuqYI 9FXSdo5h7Zn46aWF+BRGsRFY9tP cyVToqh976NqNcc3gvZYI5 cHJnPAgrUTW1N25pi4A4YLNeANH cRSG4jOY6xM0kyYfftwhyY4DeeY KaUgN9LET7lTSgyH0amZjz qshprZ9dYnt+M79YCL0NFVUUYB9 PWin4I4EyWxrtjOP+PG06YJXdRF 60sGUpjHExj2tldNu0FqVe HBJyAEZ7bUkcISztw5OcGFMoK12 ntRWcg2V0VZOmeVpoqTIpRkVsbX H5rP6zQVyilbtvr5beumlt Nmbar8mcqx14mY28V16qTSliLXD dHZY0MVKzNVSjfXdeel3oeP9eIa 8+TMvft6rse9stgXn0CgTx OOGqbkRdbHhkMLW5s5GqZe65H9I jiXzmd6MxNmv9by30kNVlx7A3hW Z6LLuaPTFuhE0yLNcrGpJ2 AZStIdKxyD95xXFdRClwIn0tvVk psKgvGL7xYZHtlbovDHDxnL0lGZ GpwDTioZkmGY1uXTWfodro u539XrPiCWF9HMLsbUNnP5PhcL1 rKvFwCNBfQDJsU7DzpHIbHRjwI9 11APuuRjR3XRGdbbDiL3Oe MWKinYfsBuF3b2R3Kr8Ca3Ltfes qWMW5VJeyPPYwJeE5EcNjOxJ4O5 OdSjb5WIOzgEjiFB5mM2Np YQSmlwplorzllCS8HMNxWXDgmB1 3iHSaUBbyBy8lf2P8c364MXVtXC BsqQ67Dh6tuUemROMojVRK iU2gegnwd8uikqsrTzZnRFElTCp 9NJh3PZBlnXjcBuPzIHS9WpW4DO J8uXMgiA2onZpnzfvxwS2i Oyc+W87eyH0pPXC0ALX9bdtxOJY nvlTdTL81RE09U9QbXynwqNZymW U+PDSqdvIaqYiqNW5oRuRd a2oub6YzJZqeY9WcCAYoEMsgWln 7RAUgJXU1qOT8pS6xXNAgGRafw6 U2uIZ1S4TozwQcfo9mr7re MEDuIBavB06ffONrt8P6VGUkeFW 9ECLxwHndKeJoeF43Frw+PGNvbG wmw0WcSqdop0ejs1jstAm7 ZmLnKTVoegOhxLajYFP2q3ArAc8 1H67rDWemKWTqOIGxYMHuRKGrzK yjbg5wiZ7yKi5+PGNvbCB3 oLZ0pO2rTIKwDrM4LEruR552UiH jqPDdXlicd2wbs3omgRw8IhVfSH FgorLlcLisSKG4e3KiQd37 U37wXXagJUDpLSDkNGEvCTJzuXh yjp4ggA1lKm6+RX8ah0exlc47xG 48dHI+BQLqCJY3wYbkSJas WCKdaG0bKGcpOuV7HURdGwSkzA2 8bLPjVZtoAl7jlXrkuGuiCP7oWH Bexprss197WlOrv8gkKBNw gWYzTNtvPCQ7F32ny4K5UQTpJJD bCTA4mMD4eC1gyJynzcgmuJWdrY vbqyCueErcIDmcRJzxH128 IHRvcDsnPlBhdGllbnQgTmFtZTo 4X5PpMhu4FQVgxYvgQU5tdUDnXK omRi9nnIkvdXztIU6pNTDb qrpux784GtGix0uoOGJcuSIoLQh zNEU8A96yr8Q1LNIgSKJsUFH3gP S4rY6qwWgvfpwoqAIygCnl luDysRhvAIorXBiiF358IVYdpQp oFrXsecLcKCUxuNZ8JO44NL26mG Ren7T8qFZ2Q1BgBOYdiiqx gadsbAV6SANrSOKuyE43Yb9ywLz mFk3vCXWlFIH8ZLKfqVXyP1YziC 1lMkJzSGXvCEDtH3NgtTVq VUggN877JKujCxN7XUGkpuScB3X qVEDqxOybHzT7q1N5Ui3GM0I1FG 93BI91kFNdv6O8tYJ8W2Ip KLDsxsdvvnvesUH2ZXQyNDMjxB7 9Ua8siDiqMb1rHQRdDQJ7CLIcvM XmV8AohW7fNgEeCDMyRNYj P7JjdVBrZNqzI440JBsiXaF7JIK opmDcG7OgUNOasNnsOlS0n0P0Gt 2FNXc9CK55DJ64bDWdx0V5 aVJ0L0NmXDCppcoxbwuidRT2UYH jFGBhwQ12Qd3faWngWm1tJGDlJS T7SDOjqFWtP6KxgS1pRvQb ESLbMSJyM6YfwXPcNKecO000OKc lSfV8BDXcycXxK6IiQBHbfNctAo H0f0J6Bb3GWMWjKA97SRL2 tVN1AE56ZU47A0KlPhlknMMheLU +PHRhYmxlIHdpZHRoPScxMDAlJy DshMrlMT9jZk9zNBYqFZHn sVkadQIpTsFfz1tuNFOiOFdrJU3 apSxbK0WweOS8UCGkm5o0Xh86T9 3kZ8RtyVB+GYNxgYG6pSJ4 eY3wQjUeNfU5GPjkW465NlIxoSF cIwwux9egk8axwJf6FuM0QHOfuu WaqZyiIJJ5n6QlXo51D74z IHdpZHRoPSIxNSUiIHZhbGlnbj0 jlH2rHp8+TRXjnYR3tMP2uM9sIv XuNaN0HSzbQ887EtYkjBVr Bvbhf1wmf3kdpEq4TpDyEJJhnbW yuWbtSYY5w3EdZe30W6HeuFpjd2 QxZdd7pi88hMKgk5X3vBR7 Z7AvZYBqillkvBRfjSllEM3yTLV nfvtnUJZmbX1dQFBkG9a1FzXfHr F2BMeyK5IqvnA0RJNtjIPy TNknWNY1W04mn6B5ERGsHILeCOP 8xIB2tL4ttTeqybvoiVAqzLapdn UqxGgxUTinPOacN542JGDi uEgfVELwgY5eTGQuxDUduHiyCR5 uSHYmqamtTkXKFuRyO5MpZBuOXJ 4gQTwvdGQ+XPHbEGO0tChq FMsbDAHqmE8oWCJcI4i0EhMuVlO 5FTjnT1MuRQKmjselDr80eT3oYs LlCxU1XKzkI7SlakY9WEEd aFRhXUdvSMR3S06nf2A1RSZbNBT uDHB8oMG0pI4nhMikaxpgvRIozK pzcwZtkUpqBTifRFcrI764 FIRatRlaJxM2JePlGuR3HKG2O9G gAjd2LWOcmHjqSD7kpBBnVVzkQh 1lbUhkdWlmJS8hLFVhzboc GJYkiA8zZMEekMZgoIcsMN7tXJS bfboab978UlXaHXL4UUGxmQWzO4 GpmL5tBjCfCKVdNKYyP1Yf iFFeBFwaY899FKfmJtZ9KILqmnQ tE9SoAHZilKpvPxI9f0Q8Zp81JP BZZWFyczwvdGQ+PHRkIHN0 xGjcTFjoGINuzO6cSOFvK2t7LzQ vWiH2IPkbY4XdGAXebqcsEt38sY 7mZdTaEtC8GXliG9NfkuZ4 EXCysDKeBCnaTXV3C43kj8Z8VBS qDXHjDVE4kLO9fZ8mdOiohwenuG VmdDsgdmVydGljYWwtYWxp Y634DUMdyRqeHs8wxBU2D3GrCzl 8WEWymIaaDR4ieXEiDGkbBw6szY mfxSqnTT9tTTDxnryuPBOu nQ6wDLPvpBUlkYdrHD8oVVAktoo tb484AwTuMLB6TDOesSZvG0SpeO 9dDtDtWIGuVEUfP5AafMBy WFnzN141OLpkMaK0KVSbivAlT3S xBPHnzPksJlI9v4B1Uh7PvUFcZG ZqFB49YA70TT71E5YiEapv dGFibGU+PHRhYmxlIHdpZHRoPSc fNKChItPpmMvpIA5mAz1aSQZiTU GlrTmoyBFpVaMum9dkWKQv SEloMD4slErcD5OdzOT4RQOsd8b 0Ii31T35aG2KfkVA+FCXluHO3eH Q0zF3oZrXqAiV0KVgcZ668 TeOpmUArYdbgl2riy9gblVw8HpY nZMJmpeNseRbfPVA2a7WcWj23J2 9sIHdpZHRoPSIyMCUiIHZh dMvbry7beY7bVa6+PLOioVW2xSZ 7sA3lEvEyWdS3JMakY742DiQfqW HfKvhhY50kU4JjdOB+PHRy Unv6PDQbaJksCL9luITbXQeqDm8 zJXZ4UcJbHcGrFHwjQ4BtXLHcvy kzpdnrmNF4BFRdTFJzyX60 Ce2qzFcfFc4kVOBmQOQ4WLRwfOM mJ9UoiN6eTlCvYNRvSUYbR6ElsN PvURecZ737NKekIeN8FEUx vmQqG4OcFNRhrDtrOhI8g7E4Pn2 QnNtwtDUdUS3dKlYxALj0J6VzMk g3PKVegVidUQ0neUMoQUxe Dl9epWjusHrlDX2oALRirxepj42 3LzDif7ymUNUouGVwLNqoWLE9K8 6op6G1YRWtMKBvZCQ2yOT9 eN1sfNmwwhekrOVeqXajhqBnxMf dLFkyXAseO167PXZbnIhhXqXQZn q2L2WkCdt7LFYcnAgpSB8f bVHoKTzdMo3xdLsrtLvfLI4kMAU hgympm955HuIzk6ptXBAozZZkXV bhTHN2U08ua9P7DAXyIGKa IST0mHX9kD7wdCvfctqwbBBvtFt wgqPhiPcsXRurQQysR365JDMzjT edHd9CQxb4Q4CgKdb5CUCf dPldIG6tsSElQUrrUd7veJmxbMp eMV4yCPAurwdwg094DqTsd5scNU BawZYiMMaoITE6F84ru7K8 QLOgUHAqSOA6vBT5tR0pqVwxhcf gbGVmdDsgdmVydGljYWwtYWxpZ2 46IHRvcDsnPlBheWVyOjwv dGQ+WG17qg44U8PwAjudYfl1LCV lWIP5dMV5gH3lMTEaUZaeb4O4vT E7O7QyqpPcpy4xd1obBASx ZTog (more content not included)... Normal [facility] Consent for Procedure/Surger yon 03-21-2022 Consent for Procedure/Surgery [id number]:127 Normal [facility] Consent for Treatmenton Consent for Treatment [id number]:127 Normal [facility] Inpatient Patient Summaryon 03-21-2022 Inpatient Patient Summary [place] [id number] Clinical Summary Person Information Name: GUI ORTIZ SR Age: 67 Years : 1955 Sex: Male PCP: Tyson Jaquez MD Marital Status: Phone: [phone] Race: White Ethnicity: or Language: Somali Visit Id: Visit 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 / ELEVATED PSA / HEMATURIA Speciality: Acuity: Enc Type: Outpatient Med Service: Surgery Arrival: 03/21/2022 10:25:04 Discharge: Dispo Type: Address: [address] [place], [place] [id number] Provider Notes: Diagnosis: Problems Active Asymptomatic microscopic [...] Follow up: With: Address: When: Casper RAUSCH [address] [place] [address] Business (1) Within 5 to 7 days With: Address: When: [place] [address] Business (1) Type Location Start [facility] URO Office Visit [facility] 05/22/2022 11:00 AM 05/22/2022 11:15 AM Confirmed Patient Education Information: Normal [facility] IntraOperative Documentson 1 IntraOperative Documents [id number]:127 Normal [facility] Main OR Intraoperative Recor don 03-21-2022 Main OR Intraoperative Record IntraOp Document Type FTURO Summary Primary Physician: Casper RAUSCH MD Finalized Date/Time: 03/21/22 11:42:35 Pt. Name: GUI ORTIZ SR/Sex: 1955 Male Med Rec #: [id number] Physician: Casper RAUSCH MD Financial #: [id number] Pt. Type: O Room/Bed: / Admit/Disch: 03/21/22 [...] Usha Arevalo Role Performed Surgeon - Primary Babysitter - Primary Scrub - Primary Time In [...] SONIA Cavanaugh RN, Ruthann 03/21/22 11:42 Normal [facility] Main OR Preoperative Recordo n 03-21-2022 Main OR Preoperative Record Holding Area Document Type FTURO Summary Primary Physician: Casper RAUSCH MD Finalized Date/Time: 03/21/22 11:17:09 Pt. Name: GIU ORTIZ SR /Sex: 1955 Male Med Rec #: [id number] Physician: Casper RAUSCH MD Financial #: [id number] Pt. Type: O Room/Bed: / Admit/Disch: 03/21/22 [...] Complaints of Pain: No Skin Integrity Intact, [place], Warm, & Dry Vitals - EU Blood Pressure 100/70 Pulse 59 bpm Respirations 16 br/min SPO2 98 % Additional CHANEL RN Reviewed Yes Specimens Collected Last Modified By: SONIA Cavanaugh RN, Ruthann 03/21/22 11:17:07 General Comments: Temp 36.4 Temporal Finalized By: SONIA Cavanaugh RN, Ruthann Document Signatures Signed By: Adwoa Little LPN 03/21/22 10:38 SONIA Cavanaugh RN, Ruthann 03/21/22 11:17 Normal [facility] Operative Reporton 2 Operative Report Patient: ANUJ [...] with antibiotic coverage, Follow up arranged. Normal [facility] Comment on above: Result Comment: Elec tronically Signed By: Casper RAUSCH MD\.br\Date and Time Signed: 03/21/22 11:28 EDT Outpatient Surgery Discharge Instructionon 03-21-2022 Outpatient Surgery Discharge Instruction [place] [id number] Patient Discharge Instructions PERSON INFORMATION Name: GUI [...] Follow up: With: Address: When: Casper RAUSCH [address] [place] [address] [place] [address] Business (1) Within 5 to 7 days With: Address: When: Casper RAUSCH [address] [place] [id number] Business (1) Type Location Start [facility] Office Visit [facility] 05/22/2022 11:00 AM 05/22/2022 11:15 AM Confirmed Comment: PATIENT EDUCATION INFORMATION Instructions: ANGEL Fox SR, JUAN A, have received the attached patient education materials/instructions and have verbalized understanding: May we do a follow up call? Yes No I was present when discharge instructions were given Patient Signature Date Clinican/Nurse Signature Date You may receive a survey from [employer] asking you to rate your care experience. Your feedback is important and will help us understand what we do well and how we can improve the quality of care we provide to you, your loved ones and our community. It?s an honor to serve you. Thank you for choosing [facility] Normal [facility] Patient Educationon 03-21-20 Patient Education Normal [facility] UroVysion Fish and Urine Cyt o ([facility])on 03-21-2022 [facility] Method of Extraction Voided Normal [facility] Comment on above: Performed By: #### 1 [id number] ####[facility] [address] [place] [address] [facility] Number of Jars 1 Invalid Interpretation Code [facility] Comment on above: Performed By: #### 1 [id number] ####[facility] [address] [place] [address] [facility] Specimen Urine Normal [facility] Comment on above: Performed By: #### 1 [id number] ####[facility] [address] [place] [address] [facility] Type of Service Technical Only Normal [facility] Comment on above: Performed By: #### 1 [id number] ####[facility] [address] [place] [address] Lab Reportson 03-15-2022 Lab Reports [id number]:127 Normal [facility] PSA, FREE AND TOTAL RATIOon 03-13-2022 % Free PSA 15.5 % Normal [facility] Comment on above: Result Comment: The [...] men. Performed By: #### P SAFREE #### Laboratory [address] [place] [address] Dr. Rehana Martinez Prostate specific Ag [Mass/Vol] 4.9 ng/mL Critically high 0.0-4.0 [facility] Comment on above: Result Comment: Arnoldo CHOPRAIA methodology. . According to the [place] [employer], Serum PSA should decrease and [...] disease. Performed By: #### P SAFREE #### Laboratory [address] [place] [address] Dr. Rehana Martinez PSA, Free 0.76 ng/mL Normal N/A [facility] Comment on above: Result Comment: Arnoldo benedict ECLIA methodology. Performed By: #### P SAFREE #### Laboratory [address] [place] [address] Dr. Rehana Martinez CREATININEon 12-14-2021 Creatinine [Mass/Vol] 1.01 mg/dL Normal 0.70-1.30 [facility] Comment on above: Performed By: #### C MAXINE #### Laboratory [address] [place] [address] Dr. Rehana Martinez EGFR-AF BULGARIAN >60 Normal >=60 [facility] Comment on above: Performed By: #### C MAXINE #### Laboratory [address] [place] [address] Dr. Rehana Martinez EGFR-NON AF BULGARIAN >60 Normal >=60 [facility] Comment on above: Performed By: #### C MAXINE #### Laboratory [address] [place] [address] ABD/PELV W CONon [...] by: BRANDIE RUDD Date: 2021-12-14 11:36 Normal [facility] Vital Signs Date Time Vital Sign Value Performing Clinician Yunier nunez 03-27-2022 10:11-0400 Blood Pressure Location [facility] 03-27-2022 10:11-0400 Diastolic blood pressure 57 mm[Hg] Parascale [facility] 03-27-2022 10:11-0400 Heart rate 57 /min [facility] 03-27-2022 10:11-0400 Respiratory rate 16 /min Parascale [facility] 03-27-2022 10:11-0400 Systolic blood pressure 154 mm[Hg] Casper RAUSCH [facility] 12-05-2021 08:16-0400 Blood Pressure Location Monica Mondragon Jr. [facility] 12-05-2021 08:16-0400 Diastolic blood pressure 84 mm[Hg] Monica Mondragon Jr. [facility] 12-05-2021 08:16-0400 Heart rate 75 /min Monica Mondragon Jr. [facility] 12-05-2021 08:16-0400 Systolic blood pressure 118 mm[Hg] Monica Mondragon Jr. [facility] Encounters Encounter Date Encounter Type Care Provider Facility Start: 02-11-2024 ambulatory ELIZABETH Teague ty:[facility] Start: 08-14-2023 End: 08-14-2023 ambulatory LEONORAAB MARIELA [facility] Start: 07-18-2023 End: 07-18-2023 ambulatory MAYELIN WOLFE [facility] Start: 07-08-2023 Evaluation and manag ement of inpatient [facility] Start: 07-07-2023 Evaluation and manag ement of inpatient [facility] Start: 07-06-2023 Evaluation and manag ement of inpatient [facility] Start: 07-05-2023 Evaluation and manag ement of inpatient [facility] Start: 07-05-2023 End: 07-09-2023 Evaluation and management of inpatient DOMENIC ZIEGLERARZ [facility] Start: 05-16-2023 ambulatory JUANITA [facility] Start: 05-14-2023 End: 05-14-2023 ambulatory VALENTINA YEBOAHCKER [facility] Start: 05-06-2023 Evaluation and manag ement of inpatient ELINA KISHAN [facility] Start: 05-03-2023 End: 05-04-2023 ambulatory [facility] Start: 05-01-2023 Evaluation and manag ement of inpatient [facility] Start: 04-30-2023 Evaluation and manag ement of inpatient [facility] Start: 04-30-2023 Evaluation and manag ement of inpatient [facility] Start: 04-30-2023 Evaluation and manag ement of inpatient [facility] Start: 04-29-2023 Evaluation and manag ement of inpatient [facility] Start: 04-27-2023 Evaluation and manag ement of inpatient [facility] Start: 04-26-2023 Evaluation and manag ement of inpatient [facility] Start: 04-25-2023 Evaluation and manag ement of inpatient [facility] Start: 04-25-2023 Evaluation and manag ement of inpatient KAREY SAWANT [facility] Start: 04-24-2023 Evaluation and manag ement of inpatient [facility] Start: 04-24-2023 Evaluation and manag ement of inpatient [facility] Start: 04-23-2023 [facility]: 04-23-2023 Evaluation and manag ement of inpatient ZANDER BLEDSOE [facility] Start: 04-23-2023 End: 04-24-2023 Evaluation and management of inpatient [facility] Start: 04-23-2023 Evaluation and manag ement of inpatient KAREY SAWANT [facility] Start: 04-23-2023 Evaluation and manag ement of inpatient KAREY ACUNANYHARLEY [facility] Start: 04-22-2023 Evaluation and manag ement of inpatient [facility] Start: 04-22-2023 Evaluation and manag ement of inpatient [facility] Start: 04-22-2023 [facility]: 04-22-2023 End: 05-01-2023 Evaluation and management of inpatient [facility] Start: 04-09-2023 End: 04-10-2023 Encounter for preprocedural cardiovascular examination [facility] Start: 04-09-2023 End: 04-10-2023 ambulatory [facility] Start: 04-04-2023 ambulatory [facility] Start: 03-23-2023 Evaluation and manag ement of inpatient KAREY SAWANT [facility] Start: 03-23-2023 [facility] Start: 03-23-2023 Evaluation and manag ement of inpatient DOMENIC [facility] Start: 03-22-2023 Evaluation and manag ement of inpatient JENNA [facility] Start: 03-22-2023 [facility] Start: 03-21-2023 End: 03-23-2023 Evaluation and management of inpatient [facility] Start: 01-29-2023 End: 01-30-2023 ambulatory ELIZABETH LINDSAY Facility:[facility] Start: 01-29-2023 End: 01-29-2023 Patient encounter procedure ELIZABETH LINDSAY [facility] Start: 09-11-2022 ambulatory [facility] Start: 09-06-2022 End: 09-07-2022 ambulatory [facility] Start: 09-04-2022 ambulatory [facility] Start: 08-04-2022 End: 08-05-[address] TYSON JAQUEZ . Facility:[facility] Start: 07-25-2022 End: 07-26-[address] TYSON JAQUEZ . Facility: Start: 03-27-2022 End: 03-28-2022 ambulatory Casper RAUSCH Facility:[facility] Start: 03-27-2022 End: 03-27-2022 Patient encounter procedure Casper RAUSCH [facility] Start: 03-21-2022 End: 03-22-2022 ambulatory Casper RAUSCH [facility] Start: 03-21-2022 End: 03-21-2022 Patient encounter procedure Casper RAUSCH [facility] Start: 03-12-2022 End: 03-13-[address] CASPER RAUSCH Facility:[facility] Start: 02-05-2022 End: 02-05-2022 Patient encounter procedure Monica Mondragon Jr. [facility] Start: 12-14-2021 End: 12-15-2021 ambulatory MONICA MONDRAGON JR Facility:[facility] Start: 12-05-2021 End: 12-05-2021 Patient encounter procedure Monica Mondragon Jr. [facility] Procedures Date Procedure Procedure Detail Performing Clinician Start: 08-14-2023 Follow-up visit KAREY SAWANT Start: 05-16-2023 Follow-up visit KAREY SAWANT Start: 05-14-2023 Follow-up visit KAREY SAWANT Start: 04-04-2023 Follow-up visit KAREY SAWANT Start: 09-11-2022 Follow-up visit KAREY SAWANT Start: 09-04-2022 Follow-up visit KAREY SAWANT Start: 07-25-[address] FABIOLA JAQUEZ . Comment on above: Performed By: #### P SASC #### Laboratory [address] [place], [place] [address] Dr. Rehana Martinez Start: 03-21-2022 Cystoscopy ELIZABETH JOHNSTON Start: 12-14-[address] FABIOLA JAQUEZ . Comment on above: Performed By: #### P SAD #### [id number] [place], [place] [address]MnDr. Rehana Martinez Start: 01-23-2018 Cystoscopy Monica stephen Jr. Comment on above: 07/22/09, 01/23/18 07/22/09, 01/23/18 Immunizations Immunization Date Immunization Notes Care Provider Cipriano moody 06-20-2021 SARS-CoV-2 (COVID-19 ) mRNA BNT-162b2 eduardox Casper RAUSCH [facility] 09-13-2020 SARS-CoV-2 (COVID-19 ) Ad26 vaccine, recombinant Monica Mondragon Jr. [facility] 08-22-2020 SARS-CoV-2 (COVID-19 ) Ad26 vaccine, recombinant Monica Mondragon Jr. [facility] NEGATED: Highlighted row has not occurred!12-05-2021 influenza virus vaccine, unspecified formulation Monica Mondragon Jr. [facility] Payers Date Payer Category Payer Medicare [id number] 1960 Unknown [id number] 1955 Unknown [id number] 2.16.84 [id number] 1955 Unknown [id number] 2.16.84 [id number] 1955 Unknown [id number] 2.16.84 [id number] 1955 Unknown [id number] 2.16.84 [id number] 1955 Unknown [id number] 2.16.8 [id number] 1955 Unknown [id number] 2.16.8 [id number] 1955 Unknown [id number] 2.16.8 [id number] 1955 Unknown [id number] 2.16.8 [id number] Social History Date Type Detail Facility Start: 12-05-2021 Tobacco smoking status Heavy t obacco smoker (finding) [facility] Sex Assigned At Male [facility] Functional Status Date Assessment Result Facility 01-29-2023 Functional Status N/A [facility] 03-27-2022 Functional Status N/A [facility] 03-15-2022 Functional Status N/A [facility] 12-05-2021 Functional Status N/A [facility] Clinical Notes 05-23-2021 to 08-14-2023 LaboratoryLaboratoryLaboratoryLaboratory Note Date & Type Note Facility 08-14-2023 Note [facility] 08-01-2023 Note [facility] 07-30-2023 Note [facility] 07-18-2023 Note [facility] 07-18-2023 Note [facility] 07-18-2023 Note Increase imdur to 60 mg daily, decrease coreg back to 3.125 mg bid in light of bradycardia and somewhat labile B/P. [facility] 07-18-2023 Note [facility] 07-18-2023 Note [facility] 07-09-2023 Note [facility] 07-09-2023 Note [facility] 07-09-2023 Note [facility] 07-08-2023 Note [facility] 07-07-2023 Note [facility] 07-07-2023 Note [facility] 07-06-2023 Note [facility] 07-02-[address] wo [facility] 05-16-2023 Note [facility] 05-16-2023 Note [facility] 05-16-2023 Note [facility] 05-14-2023 Note [facility] 05-14-2023 Note [facility] 05-01-2023 Note Patient provided a c opy of the AVS. All questions answered. Patient discharged with belongings and taken down with transport via wheelchair and family at bedside. [facility] 05-01-2023 Note [facility] 05-01-2023 Note [facility] 05-01-2023 Note [facility] 05-01-2023 Note [facility] 04-30-2023 Note [facility] 04-30-2023 Note [facility] 04-29-2023 Note [facility] 04-29-2023 Note [facility] 04-29-2023 Note [facility] 04-29-2023 Note [facility] 04-28-2023 Note [facility] 04-28-2023 Note [facility] 04-27-2023 Note [facility] 04-27-2023 Note [facility] 04-27-2023 Note [facility] 04-27-2023 Note [facility] 04-26-2023 Note [facility] 04-26-2023 Note [facility] 04-26-2023 Note [facility] 04-26-2023 Note [facility] 04-26-2023 Note [facility] 04-26-2023 Note [facility] 04-25-2023 Note [facility] 04-25-2023 Note Attempted to call wi fe to get information and give updates. Was unable to reach her, will continue to try. [facility] 04-25-2023 Note [facility] 04-25-2023 Note [facility] 04-25-2023 Note [facility] 04-24-2023 Note Patient is still on vent support. Per RN was off and placed back on yesterday. Consult for s/p CABG. SW to follow. [facility] 04-24-2023 Note [facility] 04-24-2023 Note Physical Therapy Patient intubated/sedated at this time. PT will check back and follow as appropriate. CHANTEL Matos [facility] 04-24-2023 Note [facility] 04-24-2023 Note Occupational Therapy Cancel Note Reason: Patient intubated and sedated at this time. OT will continue to follow and will re-attempt as able. Time in: 0808 Check no charge Thelma Jin MOT, OTR/L, CLT [facility] 04-24-2023 Note [facility] 04-24-2023 Note [facility] 04-23-2023 Note [facility] 04-23-2023 Note [facility] 04-23-2023 Note [facility] 04-23-2023 Note [facility] 04-23-2023 Note [facility] 04-22-2023 Note TRIGGER: PRESSURE 1:1 FULLY AUGMENTED [facility] 04-22-2023 Note TRIGGER: PRESSURE 1:1 FULLY AUGMENTED [facility] 04-22-2023 Note INSERTED WITHOUT COM PLICATION USING STERILE TECHNIQUE; DRAINING CLEAR YELLOW URINE; TO BE MONITORED BY ANESTHESIA FOR DURATION OF THE CASE [facility] 04-22-2023 Note [facility] 04-22-2023 Note [facility] 04-22-2023 Note [facility] 04-09-2023 Note [facility] 04-09-2023 Note [facility] 04-04-2023 Note [facility] 04-01-2023 Note [facility] 03-23-2023 Note [facility] 03-23-2023 Note [facility] 03-22-2023 Note [facility] 03-22-2023 Note [facility] 09-11-2022 Note [facility] 09-04-2022 Note I reviewed with the resident the medical history and the resident???s findings on physical examination. I discussed with the resident the patient???s diagnosis and concur with the treatment plan as documented in the resident note. Shmuel Vásquez MD [facility] 09-04-2022 Note [facility] 03-27-2022 Hospital Discharge instructions Patient Education [...] urethra. Follow these instructions at home: Take eeni-edt-nvtuwse and prescription medicines only as told by [...] 06/03/2006 Document Revised: 04/28/2019 Document Reviewed: 07/08/2017 [employer] Patient Education 2020 [employer]. Follow Up Care 03/21/2022 11:25:28 With:Giancarlo Campbell MD, ORLIN Pena Address: [facility] [address] [place] [address]- When: Unknown [facility] 03-21-2022 Note [id number]:[id number] [facility] 02-27-2022 Hospital Discharge instructions Follow Up Care 02/27/2022 13:20:12 With:Casper RAUSCH Address: [address] [place], [place] [address], [place] [address]- Business (1) When:5 to 7 days With:Casper RAUSCH Address: [address] [place] [address]- Business (1) When: Unknown [facility] 12-05-2021 Hospital Discharge instructions Patient Education [...] Follow these instructions at home: Medicines Take bjsm-nlx-gcfwmcn and prescription medicines only as told by [...] or the blood stops without treatment. Take lzjn-juj-dlyrjjq and prescription medicines only as told by your health care provider. Drink enough fluid to keep your urine clear or pale yellow. This information is not intended to replace advice given to you by your health care provider. Make sure you discuss any questions you have with your health care provider. Document Released: 06/03/2006 Document Revised: 10/28/2019 Document Reviewed: 07/06/2017 [employer] Patient Education [employer]. Follow Up Care 05/30/2021 15:33:59 With:Monica Mondragon Jr., MD, URO Address: [facility] [address], [place] [phone] When: Unknown [facility] 05-23-2021 Hospital Discharge instructions Follow Up Care 05/23/2021 11:27:47 With:ELIZABETH LINDSAY PA-C, URL Address: [address] [place], [place] [address] [address] When:Within 1 Year(s) Comments:w/PSA [facility] Evaluation + Plan note Future Appointments Appointment Date:05/22/2022 11:00:00 AM Scheduled Provider:Monica Mondragon Jr., MD Location:[facility] Appointment Type:URO Office Visit Diagnostic Tests PendingPSA Total 12/05/21 Future Scheduled TestsPSA Free & Total 05/30/21 [facility] Evaluation + Plan note Future Appointments Appointment Date:05/22/2022 11:00:00 AM Scheduled Provider:Monica Mondragon Jr., MD Location:[facility] Appointment Type:URO Office Visit Future Scheduled TestsPSA Free & Total 05/30/21 [facility] Evaluation + Plan note Future Appointments Appointment Date:03/27/2022 09:45:00 AM Scheduled Provider:Casper RAUSCH MD Location:[facility] Appointment Type:URO Office Visit Appointment Date:05/22/2022 11:00:00 AM Scheduled Provider:Monica Mondragon Jr., MD Location:[facility] Appointment Type:URO Office Visit Diagnostic Tests PendingUroVysion Fish and Urine Cyto ([facility]) 03/21/22 Future Scheduled TestsPSA Free & Total 05/30/21 [facility] Evaluation + Plan note Future Appointments Appointment Date:09/18/2022 09:15:00 AM Scheduled Provider:Monica Mondragon Jr., MD Location:[facility] Appointment Type:URO Office Visit Diagnostic Tests PendingPSA Free & Total 06/17/22 Future Scheduled TestsPSA Free & Total 05/30/21 [facility] Evaluation + Plan note Future Appointments Appointment Date:02/11/2024 08:30:00 AM Scheduled Provider:ELIZABETH LINDSAY PA-C Location:[facility] Appointment Type:URO Office Visit Diagnostic Tests PendingPSA Total 01/29/23 [facility] Hospital course Narrative No data available for this section [facility] Hospital Discharge instructions No data available for this section [facility] [employer] Progress note No data available for this section [facility] Summary Purpose Family History No Family History Records FoundNo Family History Records FoundNo Family History Records Found Advance Directives No Advanced Directives Records FoundNo Advanced Directives Records FoundNo Advanced Directives Records Found Additional Source Comments Care Team (unrecognized sect ion and content) Personnel Name: Tyson Jaquez MD Address: [address] [place] [address] Personnel Name: Tyson Jaquez MD Address: [address] [place] [address] Personnel Name: Tyson Jaquez MD Address: Address: [address] [place] [address] Personnel Name: Tyson Jaquez MD Address: Address: [address] [place] [address] Personnel Name: Tyson Jaquez MD Address: Address: [address] [place] [address] (unrecognized sect ion and content) No Status Records FoundNo Status Records FoundNo Status Records Found INFORMATION SOURCE (unrecogn ized section and content) DATE CREATED AUTHOR 08/10/[address] [place] [facility] DATE CREATED AUTHOR AUTHOR'S ORGANIZ ATION 02/13/2023 [facility] DATE CREATED AUTHOR AUTHOR'S ORGANIZ ATION 08/30/2023 [facility] FOR RECORDS PERTAINING TO PATIENTS WHO [...] BE BASED ON THE PRIMARY CLINICAL RECORDS. [employer] provides no warranty or guarantee of the accuracy or completeness of information in this document.
[2023-08-31 23:51] LABS: Troponin I High Sensitivity 29.1 pg/mL (4.0-76.1)
[2023-09-01] VITALS (108 sets, daily range): BP systolic 80–139; BP diastolic 43–65; PULSE 46–142; RESP 1–48; TEMP 36.6; O2SAT 97–100
[2023-09-01 05:25] LABS: Hemoglobin 13.9 g/dL (14.0-18.0); Mean Corpuscular HGB Conc 33.1 g/dL (29.9-35.2); Mean Corpuscular Hemoglobin 29.1 pg (25.9-34.0); Mean Corpuscular Volume 87.9 fL (80.0-94.0); Mean Platelet Volume 9.8 fL (9.5-13.5); Platelet Count 231 10^3/uL (150-450); Red Blood Count 4.78 10^6/uL (4.70-6.10); White Blood Count 7.7 10^3/uL (4.0-11.0)
[2023-09-01 05:55] LABS: Anion Gap 13.3; BUN Creatinine Ratio 19.4; Calcium 9.3 mg/dL (8.5-10.1); Carbon Dioxide 23.1 mmol/L (21.0-32.0); Chloride 106 mmol/L (98-107); Estimated GFR (African America >60 (>=60); Estimated GFR (Non-African Ame >60 (>=60); Glucose 98 mg/dL (74-106); Potassium 3.4 mmol/L (3.5-5.1); Sodium 139 mmol/L (136-145); Troponin I High Sensitivity 36.7 pg/mL (4.0-76.1)
[2023-09-01 08:07] LABS: Glucometer 107 mg/dL (74-106)
--- NOTE | 2023-09-01 08:54 | P.DS_ITS ---
DS: Providers Provider Date of admission: 08/31/23 23:07 Primary care physician: Tyson Nunes MD DS: Diagnosis Discharge Diagnosis (1) Angina pectoris, unstable: (2) Chest pain: (3) Hypertension: Law [place] controlled pretension, unstable angina with recurrent chest pain despite being on long-acting nitrates, beta-rosangela, MAYNOR inhibitor. Currently pain-free , myocardial markers were negative. MUGA scan done in July did show a large area of nonreversible ischemia. This could still represent coronary artery blockage. Patient was told in the past that he may need further stenting. Current plan is to transfer to [facility] for further cardiac intervention. Increased Imdur to 90 mg a day. Elevated BNP-consistent with acute systolic heart failure-increase Lasix to daily instead of Saturday. GERD-change patient from omeprazole to Protonix IV. Hypertension-uncontrolled on admission-changed Imdur to 90 mg a day, that may improve blood pressure control. Hypokalemia-supplement Hypercholesterolemia-continue with home medications Patient has symptoms consistent with peripheral artery disease-patient was started on cilostazol-we will hold pending further cardiac intervention as outlined above Is unstable angina, and the patient in need of cardiac intervention, systolic heart failure worsened today, medically necessary treatment to span 2 midnights, maintain patient inpatient status in the intensive care unit DS: Summary Hospital Course Hospital Course: Patient with a significant history of coronary artery disease, status post bypass, presented to the emergency room with his chest pain typical for his coronary artery disease, he was placed in the intensive care unit, arrangements were made for transfer to [facility] when a bed was available. Patient currently stable to time of discharge. Medication status. I will follow-up with patient after discharge from [facility] Time Spent with Patient Time attestation: Total time spent providing and/or coordinating discharge services: Exam Narrative Exam Narrative: See physical exam findings on day of admission Constitutional Vital Signs, click to edit/add: Last Vital Signs Temp 97.8 F 09/01/23 19:40 Pulse 51 L 09/01/23 20:00 BP 115/65 09/01/23 19:41 Pulse Ox 98 09/01/23 20:00 O2 Del Method Room Air 08/31/23 23:27 Discharge Plan Discharge Disposition: er Acute Care Hospital Condition: Fair Discharge Date/Time: 09/01/23 20:45 Discharge location: [facility]
[2023-09-01] MEDS: ENOXAPARIN SODIUM 40 MG/0.4 ML SYRINGE SUBQ (10:01)
[2023-09-01] MEDS: ASCORBIC ACID 500 MG TABLET 1000 MG PO (10:02)
[2023-09-01] MEDS: ATORVASTATIN CALCIUM 40 MG TABLET 80 MG PO (10:02)
[2023-09-01] MEDS: ASPIRIN 81 MG TAB.CHEW PO (10:04)
--- NOTE | 2023-09-01 10:36 | P.HP_ITS ---
HPI H&P: HPI History of Present Illness Chief complaint: Chest Pain UNSTABLE ANGINA Narrative: Patient was a very extensive history of coronary artery disease, status post bypass, status post stenting after bypass, presented to the emergency room with increasing shortness of breath and chest tightness. This has been accelerating. He was seen in the office earlier in the week, he did have chest pain over the last for less than a minute, no chest pain with activity lasting 4 to 5 minutes. Case was discussed with his cardiology team at [facility] who agreed to accept patient in transfer, we are awaiting a bed. When I saw patient in the ICU, he was resting comfortably. Denies chest pain or shortness of breath currently. Patient did have 1 episode of chest pain overnight, resolved with 1 single sublingual nitroglycerin. Opioid HPI Opioid Management Most Recent Opioid Data: Last Pain Assessment 09/01/23 06:07 Last ED Pain Assessment 06/27/23 19:48 Last ORT Total Score 0 08/31/23 23:26 Last ORT Risk Category Low Risk 08/31/23 23:26 Review of Systems ROS Status of ROS 10 or more systems reviewed and unremark able except as noted in history and below [facility] Medical History (Updated 08/31/23 @ 22:20 by SAMMIE Jiménez) PVD (peripheral vascular disease) ?I73.9 - Peripheral vascular disease, unspecified (ICD-10) Hypertension ?I10 - Essential (primary) hypertension (ICD-10) CAD (coronary artery disease) ?I25.10 - Atherosclerotic heart disease of [place] coronary artery without angina pectoris (ICD-10) LLL pneumonia ?J18.9 - Pneumonia, unspecified organism (ICD-10) Acute non-ST elevation myocardial infarction (NSTEMI) ?I21.4 - Non-ST elevation (NSTEMI) myocardial infarction (ICD-10) Surgical History (Updated 05/06/23 @ 21:44 by Lesley Mike) History of open heart surgery ?Z98.890 - Other specified postprocedural states (ICD-10) Social History Within the past year, how often did you have a drink containing alcohol: never Score interpretation: A score less than 4 is consistent with normal alcohol consumption. Smoking status: Former smoker Non-prescribed substance use: denies use Highest level of school completed/degree received: don't know Meds Home Medications and Allergies Home Medications Medication Instructions Recorded Confirmed Type pantoprazole 40 mg tablet,delayed 40 mg PO DAILY 03/21/23 08/31/23 History release ascorbic acid (vitamin C) 500 mg 1 g PO QAM 05/06/23 08/31/23 History tablet (Vitamin C) aspirin 81 mg chewable tablet 1 tab PO QAM 05/06/23 08/31/23 History atorvastatin 40 mg tablet 80 mg PO QAM 05/06/23 08/31/23 History clopidogrel 75 mg tablet 75 mg PO QAM 05/06/23 08/31/23 History carvedilol 3.125 mg tablet 3.125 mg PO Q12H 08/31/23 08/31/23 History furosemide 20 mg tablet (Lasix) 20 mg PO .COMPLEX 08/31/23 08/31/23 History lisinopril 10 mg tablet 10 mg PO QAM 08/31/23 08/31/23 History cilostazol 100 mg tablet 100 mg PO BID 09/01/23 09/01/23 History isosorbide mononitrate 60 mg 60 mg PO DAILY 09/01/23 09/01/23 History tablet,extended release 24 hr Allergies Allergy/AdvReac Type Severity Reaction Status Date / Time No Known Drug Allergies Allergy Verified 08/31/23 17:20 Exam Constitutional Vital Signs, click to edit/add: Last Vital Signs Temp 98 F 08/31/23 23:19 Pulse 54 L 09/01/23 07:00 Resp 18 09/01/23 07:00 BP 139/65 09/01/23 02:37 Pulse Ox 100 09/01/23 02:32 O2 Del Method Room Air 08/31/23 23:27 Documenting provider has reviewed patient's vital signs: yes Common normals: no apparent distress Chest Common normals: inspection of chest normal (Well-healing midline scar) Respiratory Common normals: normal respiratory effort and no retractions Cardio Common normals: regular rate, regular rhythm and no murmurs Results Labs Labs: Short CBC 08/31/23 09/01/23 Range/Units 17:30 04:18 WBC 9.4 7.7 (4.0-11.0) 10^3/uL Hgb 14.9 13.9 L (14.0-18.0) g/dL Hct 44.3 42.0 (42.0-54.0) % Plt Count 240 231 (150-450) 10^3/uL BMP 08/31/23 09/01/23 17:30 04:18 Sodium 136 139 Potassium 3.4 L 3.4 L Chloride 102 106 Carbon Dioxide 23.0 23.1 BUN 21.0 H 18.0 Creatinine 1.06 0.93 Glucose 167 H 98 Calcium 9.2 9.3 Liver Function 08/31/23 Range/Units 17:30 Total Bilirubin 0.4 (0.2-1.0) mg/dL AST 16 (15-37) U/L ALT 16 (16-63) U/L Alkaline Phosphatase 165 H (46-116) U/L Albumin 3.7 (3.4-5.0) g/dL Assessment and Plan Assessment and Plan (1) Angina pectoris, unstable: (2) Chest pain: (3) Hypertension: Plan [place] controlled pretension, unstable angina with recurrent chest pain despite being on long-acting nitrates, beta-rosangela, MAYNOR inhibitor. Currently pain- free, myocardial markers were negative. MUGA scan done in July did show a large area of nonreversible ischemia. This could still represent coronary artery blockage. Patient was told in the past that he may need further stenting. Current plan is to transfer to [facility] for further cardiac intervention. Increased Imdur to 90 mg a day. Elevated BNP-consistent with acute systolic heart failure-increase Lasix to daily instead of Saturday. GERD-change patient from omeprazole to Protonix IV. Hypertension-uncontrolled on admission-changed Imdur to 90 mg a day, that may improve blood pressure control. Hypokalemia-supplement Hypercholesterolemia-continue with home medications Patient has symptoms consistent with peripheral artery disease-patient was started on cilostazol-we will hold pending further cardiac intervention as outlined above Is unstable angina, and the patient in need of cardiac intervention, systolic heart failure worsened today, medically necessary treatment to span 2 midnights, maintain patient inpatient status in the intensive care unit
[2023-09-01] MEDS: POTASSIUM CHLORIDE 10 MEQ ER TABLET 20 MEQ PO (11:41)
[2023-09-01] MEDS: FUROSEMIDE 20 MG TABLET PO (11:41)
[2023-09-01] MEDS: CARVEDILOL 3.125 MG TABLET PO (11:42)
[2023-09-01] MEDS: ISOSORBIDE MONONITRATE 30 MG TAB.ER.24H 90 MG PO (11:42)
[2023-09-01] MEDS: PANTOPRAZOLE SODIUM 40 MG VIAL IV (11:46)
== END 2023-09-01 20:45 | disposition short-term general hospital (02) | DRG 302 ==
LOC: ER 22:20 → ICU 23:11
PROVIDERS: Physician Assistant; Registered Nurse; Admitting Provider Family Medicine; Emergency Provider Emergency Medicine; PCP Family Medicine; Visit Provider Family Medicine
DX: I25.110 Atherosclerotic heart disease of native coronary artery with unstable angina pectoris (principal); I50.21 Acute systolic (congestive) heart failure; I11.0 Hypertensive heart disease with heart failure; K21.9 Gastro-esophageal reflux disease without esophagitis; I25.2 Old myocardial infarction; E87.6 Hypokalemia; E78.00 Pure hypercholesterolemia, unspecified; E11.51 Type 2 diabetes mellitus with diabetic peripheral angiopathy without gangrene; Z95.1 Presence of aortocoronary bypass graft; Z95.5 Presence of coronary angioplasty implant and graft; Z87.01 Personal history of pneumonia (recurrent); Z87.891 Personal history of nicotine dependence; Z79.02 Long term (current) use of antithrombotics/antiplatelets; Z79.82 Long term (current) use of aspirin; Z79.899 Other long term (current) drug therapy
CPT/HCPCS: 36415; 71045; 80048; 80053; 83690; 83880; 84484; 85025; 85027; 85610; 85730; 93005; 96372; 96374; 99285

== ENCOUNTER 2023-09-02 07:02 | Outpatient (RCR) | payer MEDICARE, SELFPAY ==
--- NOTE | 2023-07-05 13:07 | CR1_ITS ---
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
--- NOTE | 2023-08-05 | CR1_ITS ---
[facility] Test Date: 2023-08-05 Pat Name: ESEQUIEL ORTIZ Department: Room: - Gender: Male [employer] Specialist: : 1955 Requested By: ANGELLA JAQUEZ Order Number: [id number] Reading MD: GABRIELA WHITE Interpretive Statements Session Date: Electronically Signed On 08-05-2023 23:30:53 EST by GABRIELA WHITE
--- NOTE | 2023-09-02 09:45 | CR1_ITS ---
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
--- NOTE | 2023-09-30 13:05 | CR1_ITS ---
[facility] Test Date: 2023-09-30 Pat Name: ESEQUIEL ORTIZ Department: Room: - Gender: Male Supervisor Polishing: : 1955 Requested By: ANGELLA JAQUEZ Order Number: [id number] Reading MD: GABRIELA WHITE Interpretive Statements Session Date: Electronically Signed On 09-30-2023 23:08:54 EDT by GABRIELA WHITE
--- NOTE | 2023-10-30 12:07 | CR1_ITS ---
[facility] Test Date: 2023-10-30 Pat Name: ESEQUIEL ORTIZ Department: Room: - Gender: Male Rating Officer: : 1955 Requested By: ANGELLA JAQUEZ Order Number: [id number] Reading MD: GABRIELA WHITE Interpretive Statements Session Date: Electronically Signed On 10-30-2023 22:58:26 EDT by GABRIELA WHITE
--- NOTE | 2023-11-21 09:39 | CR1_ITS ---
[facility] Test Date: 2023-11-21 Pat Name: ESEQUIEL ORTIZ Department: Room: - Gender: Male Dance Teacher: : 1955 Requested By: ANGELLA JAQUEZ Order Number: [id number] Reading MD: GABRIELA WHITE Interpretive Statements Session Date: Electronically Signed On 11-21-2023 21:26:43 EDT by GABRIELA WHITE
== END 2023-11-21 09:38 | disposition home or self-care (01) ==
LOC: CR 07:02
PROVIDERS: PCP Family Medicine; Visit Provider Family Medicine
DX: Z95.1 Presence of aortocoronary bypass graft (principal)
CPT/HCPCS: 93798

== ENCOUNTER 2024-01-28 07:43 | Outpatient (OUT) | payer MEDICARE, SELFPAY ==
--- OUTSIDE RECORDS SUMMARY | 2024-01-28 07:48 | XMS_ITS | CCD ---
Author Organization [facility] Care Team Providers Care Molding Line Assistant Name Role Phone Tyson Jaquez Primary Care Physician [phone] GISE[address] ., DR PERALES Admitting Unavailable HOY ., DR PERALES Attending Unavailable HOY ., DR PERALES Primary Care Unavailable HOY ., DR PERALES Consulting Unavailable GARCIA GALLEGOS Consulting Unavailable MONICA MONDRAGON JR Admitting Unavailable MONICA MONDRAGON JR Attending Unavailable LISAY ., DR PERALES Primary Care Unavailable BRANDIE [...] Unavailable ZIEBER, DR DAVID Bond Consulting Unavailable PATRICK, DOMENIC Referring Unavailable PIRKL, MARY Referring Unavailable PATRICKDOMENIC MONTIEL Referring Unavailable GANWILIAM HUFFMAN Referring Unavailab DECLAN Mcdonald Attending Unavailable ELINA HOLLEY Referring Unavailable GANGWILIAM ANDRESON Attending Unavailab le LIA PARADA Admitting Unavailable ELINA HOLLEY Referring Unavailable ELTACHRISTY EH Attending Unavailable PIRKL, MARY Referring Unavailable KAREY SAWANT Referring Unavailabl e KAREY SAWANT Referring Unavailabl e CHAITANYA AMES Referring Unavailable JUANITA COLEMAN Referring Unavailable CARRIZO, CHAITANYA Referring Unavailable OMJACOB TSANG Referring Unavailable CARRIZO, CHAITANYA Referring Unavailable CARRIZO, CHAITANYA Referring Unavailable JIGAR, Referring Unavailable JIGAR, Referring Unavailable CARRIZO, CHAITANYA Referring Unavailable CARRIZO, CHAITANYA Referring Unavailable JIGAR, Referring Unavailable PIRKL, MARY Referring Unavailable GANGWANI, WILIAM BRAGG Referring Unavailab le KULAKOWSKI, KAREY Dhaliwal Referring Unavailabl e KULAKOWSKI, KAREY Dhaliwal Referring Unavailabl e CARRIZO, CHAITANYA Referring Unavailable RAKANZANDER Referring Unavailable KULAKOWSKI, KAREY Dhaliwal Referring Unavailabl e RICK, JENNA Referring Unavailable KULAKOWSKI, KAREY Dhaliwal Referring Unavailabl e DARSHANRODGER Referring Unavailable RICK, JENNA Referring Unavailable PATRICK, DOMENIC Referring Unavailable KULAKOWSKI, KAREY Dhaliwal Referring Unavailabl e KULAKOWSKI, KAREY Dhaliwal Referring Unavailabl e ELTAHAWY, MAIDA Attending Unavailable RICKVALENTINA Attending Unavailable YANETH, MAYELIN Attending Unavailable OMBALLI, JACOB Attending Unavailable GARCIACELENA Attending Unavailable CARRIZO, CHAITANYA Referring Unavailable OMBALLI, JACOB Attending Unavailable CARRIZO, CHAITANYA Attending Unavailable JIGAR, SAEID Attending Unavailable JOHN BEAVER Referring Unavailable JUANITA COLEMAN Attending Unavailable CARRIZO, CHAITANYA Referring Unavailable CARRIZO, CHAITANYA Referring Unavailable CLIFFEL, CESAR Referring Unavailable CARRIZO, CHAITANYA Referring Unavailable YANETH, MAYELIN Referring Unavailable KULAKOWSKI, KAREY Dhaliwal Referring Unavailabl e CARRIZO, CHAITANYA Referring Unavailable CLIFFEL, CESAR Referring Unavailable CARRIZO, CHAITANYA Referring Unavailable JIGAR, SAEID Referring Unavailable CARRIZO, CHAITANYA Attending Unavailable CARRIZO, CHAITANYA Admitting Unavailable PATRICK, DOMENIC Attending Unavailable SHOAIB, SUSANNE Admitting Unavailable YANN VILLALBA Referring Unavailable PATRICK, DOMENIC Attending Unavailable SHOAIB, SUSANNE Admitting Unavailable RIZWANA HOLDEN Referring Unavailable ELIZABETH LINDASY Attending Unavailable ELIZABETH LINDSAY Attending Unavailable Allergies Allergy Classification Reported Allergen(s) Allergy Type Date of Onset Reaction(s) Facility (1 source) No Known Medication Allergies; Translations: [No Known Medication Allergies] Propensity to adverse reactions (disorder) [facility] Repository Medications Current Medications Medication Drug [...] Refills(s) 3, [id number], cm, 12/05/21 8:20:00 EDT, [...] Refills(s) 0, [id number], cm, 12/05/21 8:20:00 EDT, [...] Chronic Coronary atherosclerosis and other heart disease (10 sources) Unstable angina; Translations: [Atherosclerotic heart disease of [place] coronary artery without angina pectoris] Onset: 03-21-2023 Chronic Diabetes mellitus without complication (1 source) Other abnormal glucose; Translations: [OTHER ABNORMAL GLUCOSE] Onset: 07-26-2022 Episodic Disorders of lipid metabolism (1 source) Hyperlipidemia, unspecified; Translations: [HYPERLIPIDEMIA UNSPECIFIED] Onset: 07-26-2022 Chronic Esophageal disorders (2 sources) Gastro-esophageal reflux disease without esophagitis; Translations: [Gastro-esophageal reflux disease without esophagitis] Onset: 07-05-2023 Chronic Essential hypertension (2 sources) Essential (primary) hypertension; Translations: [Essential (primary) hypertension] Onset: 03-23-2023 Chronic Genitourinary symptoms and ill-defined conditions (19 sources) Microscopic hematuria; Translations: [Asymptomatic microscopic hematuria] Onset: 12-05-2021 Episodic Hyperplasia of prostate (9 sources) Benign prostatic hypertrophy with outflow obstruction; Translations: [Benign prostatic hyperplasia with lower urinary tract symptoms] Onset: 12-05-2021 Chronic Other circulatory disease (2 sources) Stricture of artery; Translations: [Stricture of artery] Onset: 04-09-2023 Chronic Other lower respiratory disease (2 sources) Solitary pulmonary nodule; Translations: [Solitary pulmonary nodule] Onset: 09-26-2023 Episodic Other male genital disorders (5 sources) 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 Other screening for suspected conditions (not mental disorders or infectious disease) (2 sources) Abnormal findings on diagnostic imaging of other specified body structures; Translations: [Abnormal findings on diagnostic imaging of other specified body structures] Onset: 04-09-2023 Chronic Other screening for suspected conditions (not mental disorders or infectious disease) (15 sources) Raised prostate specific antigen; Translations: [Elevated prostate specific antigen [PSA]] Onset: 12-05-2021 Episodic Otitis media and related conditions (4 sources) Otitis media, unspecified, unspecified ear; Translations: [OTITIS MEDIA UNSPECIFIED UNS EAR] Onset: 07-25-2022 Episodic Peripheral and visceral atherosclerosis (2 sources) Peripheral vascular disease, unspecified; Translations: [Peripheral vascular disease, unspecified] Onset: 07-05-2023 Chronic Substance-related disorders (3 sources) Nicotine dependence, cigarettes, uncomplicated; Translations: [Nicotine dependence, unspecified, uncomplicated] Onset: 07-26-2022 Chronic Unclassified (5 sources) Asymptomatic microscopic hematuria 12-05-2021 Unclassified (1 source) Other specified disease of esophagus; Translations: [Other specified disease of esophagus] Onset: 09-01-2023 Unclassified (2 sources) Post-op; Translations: [Post-op] Onset: 05-16-2023 Unclassified (2 sources) ST Elevation, Fatigue Onset: 05-06-2023 Past or Other Problems Problem Classification Problem Date Documented Da te Episodic/Chronic Coronary atherosclerosis and other heart disease (2 sources) Presence of aortocoronary bypass graft; Translations: [Presence of aortocoronary bypass graft] Onset: 04-22-2023 Episodic Nonspecific chest pain (2 sources) Chest pain, unspecified; Translations: [Chest pain, unspecified] Onset: 07-05-2023 Episodic Other aftercare (2 sources) Encounter for therapeutic drug level monitoring; Translations: [Encounter for therapeutic drug level monitoring] Onset: 04-09-2023 Episodic Other lower respiratory disease (6 sources) Other nonspecific abnormal finding of lung field; Translations: [OTH NONSPECIFIC ABN FIND LNG FIELD] Onset: 08-04-2022 Episodic Shock (2 sources) Cardiogenic shock; Translations: [Cardiogenic shock] Onset: 04-23-2023 Episodic Unclassified (1 source) Other specified disease of esophagus; Translations: [Other specified disease of esophagus] Onset: 09-01-2023 Results Test Name Value Interpretation Reference Range Facility Follow-Upon 11-07-2023 Follow-Up Normal [facility] Telemedicineon 10-03-2023 Telemedicine Normal [facility] CT CHEST WO IV CONTRASTon CT CHEST WO IV CONTRAST Normal [facility] 30on 09-04-2023 30 Normal [facility] BASIC METABOLIC PANELon 08-16 Anion gap [Moles/Vol] 8 mmol/L Normal 7- [facility] Comment on above: Performed By: #### L [id number] ####[facility] (BE[facility])[address] [place] [address] Calcium [Mass/Vol] 8.9 mg/dL Normal 8.6-10.3 [facility] Comment on above: Performed By: #### L [id number] ####[facility] ([facility])[address] [place] [address] Chloride [Moles/Vol] 109 mmol/L High 98-107 [facility] Comment on above: Performed By: #### L [id number] ####[facility] (BESPENSER)[address] [place] [address] CO2 [Moles/Vol] 24 mmol/L Normal 21-31 [facility] Comment on above: Performed By: #### L [id number] ####[facility] [place] [address] Creatinine [Mass/Vol] 0.86 mg/dL Normal 0.70-1.30 [facility] Comment on above: Performed By: #### L [id number] ####[facility] ([facility])[address] [place] [address] GLOMERULAR FILTRATION RATE ML/MIN/1.73 SQ M.PREDICTED 93.7 mL/min/1.73m*2 Normal >60.0 [facility] Comment on above: Result Comment: The [facility]???s estimated glomerular filtration rate (eGFR) will no [...] of individuals. Performed By: #### L [id number] ####[facility] ([facility])[address] [place] [address] Glucose [Mass/Vol] 109 mg/dL High 70-100 [facility] Comment on above: Performed By: #### L [id number] ####[facility] ([facility])[address] [place] [address] Potassium [Moles/Vol] 3.9 mmol/L Normal 3.5-5.1 [facility] Comment on above: Performed By: #### L [id number] ####[facility] ([facility])[address] [place] [address] Sodium [Moles/Vol] 137 mmol/L Normal 136-145 [facility] Comment on above: Performed By: #### L [id number] ####[facility] ([facility])[address] [place] [address] Urea nitrogen [Mass/Vol] 17 mg/dL Normal 7-25 [facility] Comment on above: Performed By: #### L [id number] ####[facility] ([facility])[address] [place] [address] UREA NITROGEN/CREATININ E (MASS RATIO) IN SER/PLAS 19.8 [facility] Comment on above: Performed By: #### L [id number] ####[facility] ([facility])[address] [place] [address] DSon 09-04-2023 DS [facility] MAGNESIUMon 09-04-2023 Magnesium [Mass/Vol] 1.8 mg/dL Low 1.9-2.7 [facility] Comment on above: Performed By: #### L [id number] ####[facility] ([facility])[address] [place] [address] NURSNOTEon 09-04-2023 NURSNOTE Room Service Clerk reviewed disc harge instructions with patient and his spouse. Room Service Clerk reviewed new medications and when to administer with patient and his spouse. Room Service Clerk then transported patient via wheelchair to main entrance with all personal belongings. Normal [facility] NURSNOTE Normal [facility] NURSNOTE Patient returned to unit. Normal [facility] NURSNOTE Patient off unit for testing. Normal [facility] TROPONIN Ion 09-04-2023 Troponin I.cardiac [Mass/Vol] 0.04 ng/mL Normal 0.00-0.04 [facility] Comment on above: Performed By: #### L [id number] ####[facility] ([facility])[address] [place] [address] [id number] 09-03-2023 [id number] [facility] 30on 09-03-2023 30 Normal [facility] 30 Normal [facility] ANESon 09-03-2023 ANES Normal [facility] ANES Normal [facility] BASIC METABOLIC PANELon 08-15 Anion gap [Moles/Vol] 10 mmol/L Normal 7-20 [facility] Comment on above: Performed By: #### L [id number] ####[facility] ([facility])[address] [facility] [place] [address] Calcium [Mass/Vol] 8.9 mg/dL Normal 8.6-10.3 [facility] Comment on above: Performed By: #### L [id number] ####[facility] ([facility]ER)[address] [place] [address] Chloride [Moles/Vol] 106 mmol/L Normal 98-107 [facility] Comment on above: Performed By: #### L [id number] ####[facility] ([facility]ER)[address] [place] [address] CO2 [Moles/Vol] 24 mmol/L Normal 21-31 [facility] Comment on above: Performed By: #### L [id number] ####[facility] ([facility]ER)[address] [facility] [address] Creatinine [Mass/Vol] 1.14 mg/dL Normal 0.70-1.30 [facility] Comment on above: Performed By: #### L [id number] ####[facility] ([facility])[address] [place] [address] GLOMERULAR FILTRATION RATE ML/MIN/1.73 SQ M.PREDICTED 69.6 mL/min/1.73m*2 Normal >60.0 [facility] Comment on above: Result Comment: The [facility]???s estimated glomerular filtration rate (eGFR) will no [...] of individuals. Performed By: #### L [id number] ####[facility] ([facility] [place] [address] Glucose [Mass/Vol] 107 mg/dL High 70-100 [facility] Comment on above: Performed By: #### L [id number] ####[facility] ([facility])[address] [place] [address] Potassium [Moles/Vol] 4.0 mmol/L Normal 3.5-5.1 [facility] Comment on above: Performed By: #### L [id number] ####[facility] ([facility])[address] [place] [address] Sodium [Moles/Vol] 136 mmol/L Normal 136-145 [facility] Comment on above: Performed By: #### L [id number] ####[facility] ([facility])[address] [place] [address] Urea nitrogen [Mass/Vol] 23 mg/dL Normal 7-25 [facility] Comment on above: Performed By: #### L [id number] ####[facility] ([facility])[address] [place] [address] UREA NITROGEN/CREATININ E (MASS RATIO) IN SER/PLAS 20.2 Normal [facility] Comment on above: Performed By: #### L [id number] ####[facility] ([facility])[address] [place] [address] CBCon 09-03-2023 Erythrocyte distribution width (RBC) [Ratio] 13.9 % Normal 11.5-15.0 [facility] Comment on above: Performed By: #### L [id number] ####[facility] ([facility] [place] [address] ERYTHROCYTE MEAN CORPUSCULAR HEMOGLOBIN CONCENTRATION (G/DL) BY AUTOMATED 34.1 g/dL Normal 32.0-35.0 [facility] Comment on above: Performed By: #### L [id number] ####[facility] ([facility])[address] [place] [address] Hematocrit (Bld) [Volume fraction] 39.3 % Normal 39.0-55.0 [facility] Comment on above: Performed By: #### L [id number] ####[facility] ([facility])[address] [place] [address] Hemoglobin (Bld) [Mass/Vol] 13.4 g/dL Normal 13.0-17.0 [facility] Comment on above: Performed By: #### L [id number] ####[facility] ([facility])[address] [place] [address] MCH (RBC) [Entitic mass] 29.3 pg Normal 27.0-33.0 [facility] Comment on above: Performed By: #### L [id number] ####[facility] ([facility])[address] [place] [address] MCV (RBC) [Entitic vol] 86.0 fL Normal 82.0-98.0 [facility] Comment on above: Performed By: #### L [id number] ####[facility] ([facility])[address] [place] [address] PLATELETS (10*3/UL) IN BLOOD AUTOMATED COUNT 203 10*3/uL Normal 150-400 [facility] Comment on above: Performed By: #### L [id number] ####[facility] ([facility])[address] [place] [address] RBC (Bld) [#/Vol] 4.57 10*6/uL Normal 4.20-5.70 [facility] Comment on above: Performed By: #### L [id number] ####[facility] ([facility])[address] [place] [address] WBC (Bld) [#/Vol] 7.63 10*3/uL Normal 4.00-10.60 [facility] Comment on above: Performed By: #### L [id number] ####[facility] ([facility])[address] [place] [address] CONSULTon 09-03-2023 CONSULT Normal [facility] HEPATIC FUNCTION PANELon Albumin [Mass/Vol] 3.8 g/dL Normal 3.5-5.7 [facility] Comment on above: Performed By: #### L [id number] ####[facility] ([facility])[address] [place] [address] ALP [Catalytic activity/Vol] 110 U/L High 34-104 [facility] Comment on above: Performed By: #### L [id number] ####[facility] ([facility])[address] [place] [address] ALT [Catalytic activity/Vol] 10 U/L Normal 7-52 [facility] Comment on above: Performed By: #### L [id number] ####[facility] ([facility])[address] [place] [address] AST [Catalytic activity/Vol] 14 U/L Normal 13-39 [facility] Comment on above: Performed By: #### L [id number] ####[facility] ([facility])[address] [place] [address] Bilirubin [Mass/Vol] 0.4 mg/dL Normal 0.3-1.0 [facility] Comment on above: Performed By: #### L [id number] ####[facility] ([facility])[address] [place] [address] Magnesium [Mass/Vol] 0.1 mg/dL Normal 0-0.2 [facility] Comment on above: Performed By: #### L [id number] ####[facility] ([facility])[address] [place] [address] Protein [Mass/Vol] 6.3 g/dL Normal 6.0-8.3 [facility] Comment on above: Performed By: #### L [id number] ####[facility] ([facility])[address] [place] [address] 30on 09-02-2023 30 Normal [facility] 30 Normal [facility] 30 Normal [facility] ANTI-XA (HEPARIN LEVEL)on HEPARIN UNFRACTIONATED (U/ML) IN PPP BY CHROMOGENIC METHOD 0.40 IU/mL Normal 0.3-0.7 [facility] Comment on above: Order Comment: Check anti-Xa level every 6 hours while on heparin infusion, or per protocol. Result Comment: [place] roxaban and Apixaban will interfere with the anti Xa assay used to monitor UFH and LMWH. Performed By: #### L [id number] ####[facility] ([facility])[address] [place] [address] HEPARIN UNFRACTIONATED (U/ML) IN PPP BY CHROMOGENIC METHOD 0.56 IU/mL Normal 0.3-0.7 [facility] Comment on above: Order Comment: Check anti-Xa level every 6 hours while on heparin infusion, or per protocol. Result Comment: [place] roxaban and Apixaban will interfere with the anti Xa assay used to monitor UFH and LMWH. Performed By: #### L [id number] ####[facility] ([facility])[address] [place] [address] APTTon 09-02-2023 ACTIVATED PARTIAL THROMBOPLASTIN TIME IN PPP BY COAGULATION ASSAY 35.0 Seconds Normal 25.0-35.0 [facility] Comment on above: Result Comment: Clin ical significance of the APTT is questionable in the presence of heparin. Performed By: #### L [id number] ####[facility] ([facility])[address] [place] [address] BASIC METABOLIC PANELon 08-15 Anion gap [Moles/Vol] 10 mmol/L Normal 7-20 [facility] Comment on above: Performed By: #### L [id number] ####[facility] ([facility])[address] [place] [address] Calcium [Mass/Vol] 8.9 mg/dL Normal 8.6-10.3 [facility] Comment on above: Performed By: #### L [id number] ####[facility] ([facility]ER)[address] [place] [address] Chloride [Moles/Vol] 107 mmol/L Normal 98-107 [facility] Comment on above: Performed By: #### L [id number] ####[facility] ([facility])[address] [place] [address] CO2 [Moles/Vol] 21 mmol/L Normal 21-31 [facility] Comment on above: Performed By: #### L [id number] ####[facility] ([facility]ER)[address] [place] [address] Creatinine [Mass/Vol] 0.99 mg/dL Normal 0.70-1.30 [facility] Comment on above: Performed By: #### L [id number] ####[facility] ([facility] [place] [address] GLOMERULAR FILTRATION RATE ML/MIN/1.73 SQ M.PREDICTED 82.5 mL/min/1.73m*2 Normal >60.0 [facility] Comment on above: Result Comment: The [facility]???s estimated glomerular filtration rate (eGFR) will no [...] of individuals. Performed By: #### L [id number] ####[facility] ([facility])[address] [place] [address] Glucose [Mass/Vol] 176 mg/dL High 70-100 [facility] Comment on above: Performed By: #### L [id number] ####[facility] ([facility]ER)[address] [place] [address] Potassium [Moles/Vol] 3.8 mmol/L Normal 3.5-5.1 [facility] Comment on above: Performed By: #### L [id number] ####[facility] ([facility])[address] [place] [address] Sodium [Moles/Vol] 134 mmol/L Low 136-145 [facility] Comment on above: Performed By: #### L [id number] ####[facility] ([facility])[address] [place] [address] Urea nitrogen [Mass/Vol] 20 mg/dL Normal 7-25 [facility] Comment on above: Performed By: #### L [id number] ####[facility] ([facility])[address] [place] [address] UREA NITROGEN/CREATININ E (MASS RATIO) IN SER/PLAS 20.2 Normal [facility] Comment on above: Performed By: #### L [id number] ####[facility] ([facility])[address] [place] [address] CBCon 09-02-2023 Erythrocyte distribution width (RBC) [Ratio] 14.1 % Normal 11.5-15.0 [facility] Comment on above: Performed By: #### L [id number] ####[facility] ([facility])[address] [place] [address] ERYTHROCYTE MEAN CORPUSCULAR HEMOGLOBIN CONCENTRATION (G/DL) BY AUTOMATED 34.7 g/dL Normal 32.0-35.0 [facility] Comment on above: Performed By: #### L [id number] ####[facility] ([facility])[address] [place] [address] Hematocrit (Bld) [Volume fraction] 40.6 % Normal 39.0-55.0 [facility] Comment on above: Performed By: #### L [id number] ####[facility] [place] [address] Hemoglobin (Bld) [Mass/Vol] 14.1 g/dL Normal 13.0-17.0 [facility] Comment on above: Performed By: #### L [id number] ####[facility] ([facility] [place] [address] MCH (RBC) [Entitic mass] 29.6 pg Normal 27.0-33.0 [facility] Comment on above: Performed By: #### L [id number] ####[facility] ([facility])[address] [place] [address] MCV (RBC) [Entitic vol] 85.3 fL Normal 82.0-98.0 [facility] Comment on above: Performed By: #### L [id number] ####[facility] ([facility])[address] [place] [address] PLATELETS (10*3/UL) IN BLOOD AUTOMATED COUNT 215 10*3/uL Normal 150-400 [facility] Comment on above: Performed By: #### L [id number] ####[facility] ([facility])[address] [place] [address] RBC (Bld) [#/Vol] 4.76 10*6/uL Normal 4.20-5.70 [facility] Comment on above: Performed By: #### L [id number] ####[facility] ([facility])[address] [place] [address] WBC (Bld) [#/Vol] 7.77 10*3/uL Normal 4.00-10.60 [facility] Comment on above: Performed By: #### L [id number] ####[facility] ([facility])[address] [place] [address] CONSULTon 09-02-2023 CONSULT Normal [facility] MAGNESIUMon 09-02-2023 Magnesium [Mass/Vol] 1.7 mg/dL Low 1.9-2.7 [facility] Comment on above: Performed By: #### L [id number] ####[facility] ([facility])[address] [place] [address] PHOSPHORUSon 09-02-2023 Magnesium [Mass/Vol] 3.3 mg/dL Normal 2.5-5.0 [facility] Comment on above: Performed By: #### L [id number] ####[facility] ([facility])[address] [place] [address] POCT GLUCOSE METER UNSOLICIT ED RESULTSon 09-02-2023 Glucose [Mass/Vol] 97 mg/dL Normal 70-105 [facility] Comment on above: Order Comment: Waive d Testing in the ED is performed under the ED CLIA certificate #[id number]. Result Comment: [email or web address] Performed By: #### L [id number] ####[facility] ([facility])[address] [place] [address] Glucose [Mass/Vol] 117 mg/dL High 70-105 [facility] Comment on above: Order Comment: Waive d Testing in the ED is performed under the ED CLIA certificate #[id number]. Result Comment: [email or web address] Performed By: #### L [id number] ####[facility] ([facility])[address] [place] [address] Glucose [Mass/Vol] 145 mg/dL High 70-105 [facility] Comment on above: Order Comment: Waive d Testing in the ED is performed under the ED CLIA certificate #[id number]. Result Comment: [email or web address] Performed By: #### L [id number] ####[facility] ([facility])[address] [place] [address] Glucose [Mass/Vol] 151 mg/dL High 70-105 [facility] Comment on above: Order Comment: Waive d Testing in the ED is performed under the ED CLIA certificate #[id number]. Result Comment: [email or web address] Performed By: #### L [id number] ####[facility] ([facility])[address] [place] [address] PROTIME-INRon 09-02-2023 INR IN PPP BY COAGULATION ASSAY 1.09 Normal 0.90-1.10 [facility] Comment on above: Result Comment: ACCC P [...] CHEST 1995;[id number]. Performed By: #### L [id number] ####[facility] [place] [address] PROTHROMBIN TIME (PT) IN PPP BY COAGULATION ASSAY 14.2 Seconds Normal 12.3-14.8 [facility] Comment on above: Performed By: #### L [id number] ####[facility] [place] [address] TROPONIN Ion 09-02-2023 Troponin I.cardiac [Mass/Vol] 0.06 ng/mL High 0.00-0.04 [facility] Comment on above: Performed By: #### L [id number] ####[facility] ([facility])[address] [place] [address] Troponin I.cardiac [Mass/Vol] 0.08 ng/mL High 0.00-0.04 [facility] Comment on above: Performed By: #### L [id number] ####[facility] (Y[facility])[address] [place] [address] Troponin I.cardiac [Mass/Vol] 0.10 ng/mL High 0.00-0.04 [facility] Comment on above: Performed By: #### L [id number] ####[facility] ([facility])[address] [place] [address] 30on 09-01-2023 30 The patient is Moder ately Stable - Low risk of patient condition declining or worsening The patient's goals for the shift include comfort The clinical goals for the shift include safety Normal [facility] HPon 09-01-2023 HP [facility] 36on 08-29-2023 36 Pt informed [facility] Orders Onlyon 08-01-2023 Orders Only [id number] Ortiz,Robert Sr. 1955 M Date Provider Department Center 08/01/2023 MAYELIN HAMMONDS Family History Family history unknown: Yes [facility] Documentationon 07-30-2023 Documentation [id number] Ortiz,Robert Sr. 1955 M Date Provider Department Center 07/30/2023 120MAYELIN MOULTON Family History Family history unknown: Yes [facility] 37on 07-18-2023 37 [facility] Follow-Upon 07-18-2023 Follow-Up [facility] 30on 07-09-2023 30 [facility] BASIC METABOLIC PANELon 06-18 Anion gap [Moles/Vol] 11 mmol/L Normal 7-20 [facility] Comment on above: Performed By: #### L [id number] ####[facility] ([facility])[address] [facility] [place] [address] Calcium [Mass/Vol] 9.0 mg/dL Normal 8.6-10.3 [facility] Comment on above: Performed By: #### L [id number] ####[facility] [facility] [place] [address] Chloride [Moles/Vol] 105 mmol/L Normal 98-107 [facility] Comment on above: Performed By: #### L [id number] ####[facility] ([facility])[address] [place] [address] CO2 [Moles/Vol] 22 mmol/L Normal 21-31 [facility] Comment on above: Performed By: #### L [id number] ####[facility] ([facility])[address] [place] [address] Creatinine [Mass/Vol] 0.89 mg/dL Normal 0.70-1.30 [facility] Comment on above: Performed By: #### L [id number] ####[facility] ([facility])[address] [place] [address] GLOMERULAR FILTRATION RATE ML/MIN/1.73 SQ M.PREDICTED 92.8 mL/min/1.73m*2 Normal >60.0 [facility] Comment on above: Result Comment: The [facility]???s estimated glomerular filtration rate (eGFR) will no [...] of individuals. Performed By: #### L [id number] ####[facility] ([facility])[address] [place] [address] Glucose [Mass/Vol] 102 mg/dL High 70-100 [facility] Comment on above: Performed By: #### L [id number] ####[facility] ([facility])[address] [place] [address] Potassium [Moles/Vol] 3.5 mmol/L Normal 3.5-5.1 [facility] Comment on above: Performed By: #### L [id number] ####[facility] ([facility])[address] [place] [address] Sodium [Moles/Vol] 134 mmol/L Low 136-145 [facility] Comment on above: Performed By: #### L [id number] ####[facility] ([facility])[address] [place] [address] Urea nitrogen [Mass/Vol] 16 mg/dL Normal 7-25 [facility] Comment on above: Performed By: #### L [id number] ####[facility] ([facility])[address] [place] [address] UREA NITROGEN/CREATININ E (MASS RATIO) IN SER/PLAS 18.0 Normal [facility] Comment on above: Performed By: #### L [id number] ####[facility] ([facility])[address] [place] [address] DSon 07-09-2023 DS Normal [facility] Orders Onlyon 07-09-2023 Orders Only [id number] Gui Ortiz Sr. 1955 M Date Provider Department Center 07/09/2023 MAYELIN HAMMONDS [facility] Family History Family history unknown: Yes Normal [facility] 30on 07-08-2023 30 The patient is Moder ately Stable - Low risk of patient condition declining or worsening The patient's goals for the shift include comfort The clinical goals for the shift include vss Normal [facility] ANESon 07-08-2023 ANES [facility] ANTI-XA (HEPARIN LEVEL)on HEPARIN UNFRACTIONATED (U/ML) IN PPP BY CHROMOGENIC METHOD 0.39 IU/mL Normal 0.3-0.7 [facility] Comment on above: Order Comment: Check anti-Xa level every 6 hours while on heparin infusion, or per protocol. Result Comment: [place] roxaban and Apixaban will interfere with the anti Xa assay used to monitor UFH and LMWH. Performed By: #### L [id number] ####[facility] ([facility])[address] [place] [address] BASIC METABOLIC PANELon 06-18 Anion gap [Moles/Vol] 11 mmol/L Normal 7-20 [facility] Comment on above: Performed By: #### L [id number] ####[facility] ([facility])[address] [place] [address] Calcium [Mass/Vol] 10.0 mg/dL Normal 8.6-10.3 [facility] Comment on above: Performed By: #### L [id number] ####[facility] ([facility])[address] [place] [address] Chloride [Moles/Vol] 105 mmol/L Normal 98-107 [facility] Comment on above: Performed By: #### L [id number] ####[facility] ([facility])[address] [place] [address] CO2 [Moles/Vol] 26 mmol/L Normal 21-31 [facility] Comment on above: Performed By: #### L [id number] ####[facility] ([facility])[address] [place] [address] Creatinine [Mass/Vol] 1.02 mg/dL Normal 0.70-1.30 [facility] Comment on above: Performed By: #### L [id number] ####[facility] ([facility])[address] [place] [address] GLOMERULAR FILTRATION RATE ML/MIN/1.73 SQ M.PREDICTED 79.6 mL/min/1.73m*2 Normal >60.0 [facility] Comment on above: Result Comment: The [facility]???s estimated glomerular filtration rate (eGFR) will no [...] of individuals. Performed By: #### L [id number] ####[facility] [place] [address] Glucose [Mass/Vol] 112 mg/dL High 70-100 [facility] Comment on above: Performed By: #### L [id number] ####[facility] ([facility])[address] [place] [address] Potassium [Moles/Vol] 4.5 mmol/L Normal 3.5-5.1 [facility] Comment on above: Performed By: #### L [id number] ####[facility] ([facility])[address] [place] [address] Sodium [Moles/Vol] 137 mmol/L Normal 136-145 [facility] Comment on above: Performed By: #### L [id number] ####[facility] ([facility])[address] [place] [address] Urea nitrogen [Mass/Vol] 15 mg/dL Normal 7-25 [facility] Comment on above: Performed By: #### L [id number] ####[facility] ([facility])[address] [place] [address] UREA NITROGEN/CREATININ E (MASS RATIO) IN SER/PLAS 14.7 Normal [facility] Comment on above: Performed By: #### L [id number] ####[facility] ([facility])[address] [place] [address] CBCon 07-08-2023 Erythrocyte distribution width (RBC) [Ratio] 13.5 % Normal 11.5-15.0 [facility] Comment on above: Performed By: #### L [id number] ####[facility] ([facility])[address] [place] [address] ERYTHROCYTE MEAN CORPUSCULAR HEMOGLOBIN CONCENTRATION (G/DL) BY AUTOMATED 33.0 g/dL Normal 32.0-35.0 [facility] Comment on above: Performed By: #### L [id number] ####[facility] ([facility])[address] [place] [address] Hematocrit (Bld) [Volume fraction] 39.4 % Normal 39.0-55.0 [facility] Comment on above: Performed By: #### L [id number] ####[facility] ([facility])[address] [place] [address] Hemoglobin (Bld) [Mass/Vol] 13.0 g/dL Normal 13.0-17.0 [facility] Comment on above: Performed By: #### L [id number] ####[facility] ([facility])[address] [place] [address] MCH (RBC) [Entitic mass] 29.1 pg Normal 27.0-33.0 [facility] Comment on above: Performed By: #### L [id number] ####[facility] ([facility])[address] [place] [address] MCV (RBC) [Entitic vol] 88.3 fL Normal 82.0-98.0 [facility] Comment on above: Performed By: #### L [id number] ####[facility] ([facility])[address] [place] [address] PLATELETS (10*3/UL) IN BLOOD AUTOMATED COUNT 248 10*3/uL Normal 150-400 [facility] Comment on above: Performed By: #### L [id number] ####[facility] ([facility])[address] [place] [address] RBC (Bld) [#/Vol] 4.46 10*6/uL Normal 4.20-5.70 [facility] Comment on above: Performed By: #### L [id number] ####[facility] ([facility])[address] [place] [address] WBC (Bld) [#/Vol] 7.02 10*3/uL Normal 4.00-10.60 [facility] Comment on above: Performed By: #### L [id number] ####[facility] ([facility])[address] [place] [address] HPon 07-08-2023 HP H&P reviewed. The pa tient was examined and there are changes to the H&P, specifically, the L radial pulse is absent as are the distal PT and DP pulses. Normal [facility] LIPID PANELon 07-08-2023 CHOL/HDL 2.6 mg/dL Normal [facility] Comment on above: Performed By: #### L [id number] ####[facility] ([facility] [place] [address] Cholesterol [Mass/Vol] 105 mg/dL Low 120-200 [facility] Comment on above: Performed By: #### L [id number] ####[facility] ([facility])[address] [place] [address] Magnesium [Mass/Vol] 63 mg/dL Normal 40-149 [facility] Comment on above: Result Comment: TRIG LYCERIDE REFERENCE RANGE:20 YEARS AND OLDER CARDIOVASCULAR RISKLESS THAN 150 mg/dL LOW [id number] TO 199 mg/dL BORDERLINE [id number] mg/dL AND GREATER HIGH RISK Performed By: #### L [id number] ####[facility] ([facility])[address] [place] [address] Magnesium [Mass/Vol] 52 mg/dL Normal 0-160 [facility] Comment on above: Performed By: #### L [id number] ####[facility] ([facility])[address] [place] [address] Magnesium [Mass/Vol] 40 mg/dL Normal 23-92 [facility] Comment on above: Performed By: #### L [id number] ####[facility] ([facility])[address] [place] [address] NON HDL CHOL. (LDL+VLDL) 65 Normal [facility] Comment on above: Performed By: #### L [id number] ####[facility] ([facility])[address] [place] [address] TOTAL VLDL-C 13 mg/dL Normal 0-40 [facility] Comment on above: Performed By: #### L [id number] ####[facility] ([facility])[address] [place] [address] NURSNOTEon 07-08-2023 NURSNOTE Normal [facility] 30on 07-07-2023 30 Normal [facility] ANTI-XA (HEPARIN LEVEL)on HEPARIN UNFRACTIONATED (U/ML) IN PPP BY CHROMOGENIC METHOD 0.35 IU/mL Normal 0.3-0.7 [facility] Comment on above: Result Comment: [place] roxaban and Apixaban will interfere with the anti Xa assay used to monitor UFH and LMWH. Performed By: #### L [id number] ####[facility] ([facility])[address] [place] [address] HEPARIN UNFRACTIONATED (U/ML) IN PPP BY CHROMOGENIC METHOD 0.35 IU/mL Normal 0.3-0.7 [facility] Comment on above: Order Comment: Check anti-Xa level every 6 hours while on heparin infusion, or per protocol. Result Comment: [place] roxaban and Apixaban will interfere with the anti Xa assay used to monitor UFH and LMWH. Performed By: #### L [id number] ####[facility] ([facility])[address] [place] [address] BASIC METABOLIC PANELon - Anion gap [Moles/Vol] 12 mmol/L Normal 7-20 [facility] Comment on above: Performed By: #### L [id number] ####[facility] ([facility])[address] [place] [address] Calcium [Mass/Vol] 9.0 mg/dL Normal 8.6-10.3 [facility] Comment on above: Performed By: #### L [id number] ####[facility] ([facility])[address] [place] [address] Chloride [Moles/Vol] 106 mmol/L Normal 98-107 [facility] Comment on above: Performed By: #### L [id number] ####[facility] [place] [address] CO2 [Moles/Vol] 22 mmol/L Normal 21-31 [facility] Comment on above: Performed By: #### L [id number] ####[facility] [place] [address] Creatinine [Mass/Vol] 0.79 mg/dL Normal 0.70-1.30 [facility] Comment on above: Performed By: #### L [id number] ####[facility] ([facility])[address] [place] [address] GLOMERULAR FILTRATION RATE ML/MIN/1.73 SQ M.PREDICTED 96.2 mL/min/1.73m*2 Normal >60.0 [facility] Comment on above: Result Comment: The [facility]???s estimated glomerular filtration rate (eGFR) will no [...] of individuals. Performed By: #### L [id number] ####[facility] ([facility])[address] [place] [address] Glucose [Mass/Vol] 113 mg/dL High 70-100 [facility] Comment on above: Performed By: #### L [id number] ####[facility] ([facility])[address] [place] [address] Potassium [Moles/Vol] 3.6 mmol/L Normal 3.5-5.1 [facility] Comment on above: Performed By: #### L [id number] ####[facility] ([facility])[address] [place] [address] Sodium [Moles/Vol] 136 mmol/L Normal 136-145 [facility] Comment on above: Performed By: #### L [id number] ####[facility] ([facility])[address] [facility] [place] [address] Urea nitrogen [Mass/Vol] 16 mg/dL Normal 7-25 [facility] Comment on above: Performed By: #### L [id number] ####[facility] ([facility])[address] [facility] [place] [address] UREA NITROGEN/CREATININ E (MASS RATIO) IN SER/PLAS 20.3 Normal [facility] Comment on above: Performed By: #### L [id number] ####[facility] ([facility])[address] [place] [address] 30on 07-06-2023 30 Normal [facility] 30 The patient is Moder ately Stable - Low risk of patient condition declining or worsening The patient's goals for the shift include comfort The clinical goals for the shift include VSS Normal [facility] ANTI-XA (HEPARIN LEVEL)on HEPARIN UNFRACTIONATED (U/ML) IN PPP BY CHROMOGENIC METHOD 0.34 IU/mL Normal 0.3-0.7 [facility] Comment on above: Order Comment: Check anti-Xa level every 6 hours while on heparin infusion, or per protocol. Result Comment: [place] roxaban and Apixaban will interfere with the anti Xa assay used to monitor UFH and LMWH. Performed By: #### L [id number] ####[facility] ([facility])[address] [place] [address] HEPARIN UNFRACTIONATED (U/ML) IN PPP BY CHROMOGENIC METHOD 0.22 IU/mL Low 0.3-0.7 [facility] Comment on above: Order Comment: Check anti-Xa level every 6 hours while on heparin infusion, or per protocol. Result Comment: [place] roxaban and Apixaban will interfere with the anti Xa assay used to monitor UFH and LMWH. Performed By: #### L [id number] ####[facility] ([facility])[address] [place] [address] HEPARIN UNFRACTIONATED (U/ML) IN PPP BY CHROMOGENIC METHOD 0.16 IU/mL Invalid Interpretation Code 0.3-0.7 [facility] Comment on above: Order Comment: Check anti-Xa level every 6 hours while on heparin infusion, or per protocol. Result Comment: [place] roxaban and Apixaban will interfere with the anti Xa assay used to monitor UFH and LMWH. Performed By: #### L [id number] ####[facility] ([facility])[address] [place] [address] CBCon 07-06-2023 Erythrocyte distribution width (RBC) [Ratio] 13.7 % Normal 11.5-15.0 [facility] Comment on above: Performed By: #### L [id number] ####[facility] ([facility])[address] [place] [address] ERYTHROCYTE MEAN CORPUSCULAR HEMOGLOBIN CONCENTRATION (G/DL) BY AUTOMATED 34.3 g/dL Normal 32.0-35.0 [facility] Comment on above: Performed By: #### L [id number] ####[facility] ([facility])[address] [place] [address] Hematocrit (Bld) [Volume fraction] 38.8 % Low 39.0-55.0 [facility] Comment on above: Performed By: #### L [id number] ####[facility] ([facility])[address] [place] [address] Hemoglobin (Bld) [Mass/Vol] 13.3 g/dL Normal 13.0-17.0 [facility] Comment on above: Performed By: #### L [id number] ####[facility] ([facility] [place] [address] MCH (RBC) [Entitic mass] 29.6 pg Normal 27.0-33.0 [facility] Comment on above: Performed By: #### L [id number] ####[facility] ([facility] [place] [address] MCV (RBC) [Entitic vol] 86.4 fL Normal 82.0-98.0 [facility] Comment on above: Performed By: #### L [id number] ####[facility] [place] [address] PLATELETS (10*3/UL) IN BLOOD AUTOMATED COUNT 242 10*3/uL Normal 150-400 [facility] Comment on above: Performed By: #### L [id number] ####[facility] ([facility])[address] [place] [address] RBC (Bld) [#/Vol] 4.49 10*6/uL Normal 4.20-5.70 [facility] Comment on above: Performed By: #### L [id number] ####[facility] ([facility])[address] [place] [address] WBC (Bld) [#/Vol] 6.59 10*3/uL Normal 4.00-10.60 [facility] Comment on above: Performed By: #### L [id number] ####[facility] ([facility])[address] [place] [address] CONSULTon 07-06-2023 CONSULT Normal [facility] HPon 07-06-2023 HP Normal [facility] TROPONIN Ion 07-06-2023 Troponin I.cardiac [Mass/Vol] 0.03 ng/mL Normal 0.00-0.04 [facility] Comment on above: Performed By: #### L [id number] ####[facility] ([facility])[address] [place] [address] Troponin I.cardiac [Mass/Vol] 0.05 ng/mL High 0.00-0.04 [facility] Comment on above: Performed By: #### L [id number] ####[facility] ([facility])[address] [place] [address] Troponin I.cardiac [Mass/Vol] 0.06 ng/mL High 0.00-0.04 [facility] Comment on above: Performed By: #### L [id number] ####[facility] ([facility])[address] [place] [address] 30on 07-05-2023 30 Normal [facility] 30 Normal [facility] ANTI-XA (HEPARIN LEVEL)on HEPARIN UNFRACTIONATED (U/ML) IN PPP BY CHROMOGENIC METHOD 0.17 IU/mL Low 0.3-0.7 [facility] Comment on above: Order Comment: Check anti-Xa level every 6 hours while on heparin infusion, or per protocol. Result Comment: [place] roxaban and Apixaban will interfere with the anti Xa assay used to monitor UFH and LMWH. Performed By: #### L [id number] ####[facility] ([facility])[address] [place] [address] APTTon 07-05-2023 ACTIVATED PARTIAL THROMBOPLASTIN TIME IN PPP BY COAGULATION ASSAY 36.3 Seconds High 25.0-35.0 [facility] Comment on above: Order Comment: Basel ine aPTT before initiating heparin infusion. Result Comment: Clin ical significance of the APTT is questionable in the presence of heparin. Performed By: #### L [id number] ####[facility] CENTER)[address] [place] [address] B-TYPE NATRIURETIC PEPTIDEon 07-05-2023 Natriuretic peptide B (Bld) [Mass/Vol] 346 pg/mL High 0-100 [facility] Comment on above: Performed By: #### L [id number] ####[facility] ([facility])[address] [place] [address] CBC WITH AUTO DIFFERENTIALon 07-05-2023 Basophils (Bld) [#/Vol] 0.03 10*3/uL Normal 0.00-0.20 [facility] Comment on above: Performed By: #### L [id number] ####[facility] ([facility])[address] [place] [address] Basophils/100 WBC (Bld) 0.5 % Normal 0.0-1.0 [facility] Comment on above: Performed By: #### L [id number] ####[facility] ([facility])[address] [place] [address] Eosinophils (Bld) [#/Vol] 0.15 10*3/uL Normal 0.00-0.50 [facility] Comment on above: Performed By: #### L [id number] ####[facility] ([facility])[address] [place] [address] Eosinophils/100 WBC (Bld) 2.3 % Normal 0.0-6.0 [facility] Comment on above: Performed By: #### L [id number] ####[facility] ([facility])[address] [place] [address] Erythrocyte distribution width (RBC) [Ratio] 13.6 % Normal 11.5-15.0 [facility] Comment on above: Performed By: #### L [id number] ####[facility] ([facility])[address] [address] ERYTHROCYTE MEAN CORPUSCULAR HEMOGLOBIN CONCENTRATION (G/DL) BY AUTOMATED 34.1 g/dL Normal 32.0-35.0 [facility] Comment on above: Performed By: #### L [id number] ####[facility] ([facility])[address] [place] [address] Hematocrit (Bld) [Volume fraction] 41.7 % Normal 39.0-55.0 [facility] Comment on above: Performed By: #### L [id number] ####[facility] ([facility])[address] [place] [address] Hemoglobin (Bld) [Mass/Vol] 14.2 g/dL Normal 13.0-17.0 [facility] Comment on above: Performed By: #### L [id number] ####[facility] ([facility])[address] [place] [address] Immature granulocytes (Bld) [#/Vol] 0.01 10*3/uL Normal 0.00-0.20 [facility] Comment on above: Performed By: #### L [id number] ####[facility] ([facility])[address] [place] [address] Immature granulocytes/100 WBC (Bld) 0.2 % Normal 0.0-1.0 [facility] Comment on above: Performed By: #### L [id number] ####[facility] ([facility])[address] [place] [address] Lymphocytes (Bld) [#/Vol] 2.12 10*3/uL Normal 1.20-4.00 [facility] Comment on above: Performed By: #### L [id number] ####[facility] ([facility])[address] [place] [address] Lymphocytes/100 WBC (Bld) 32.7 % Normal 20.0-45.0 [facility] Comment on above: Performed By: #### L [id number] ####[facility] ([facility] [place] [address] MCH (RBC) [Entitic mass] 29.3 pg Normal 27.0-33.0 [facility] Comment on above: Performed By: #### L [id number] ####[facility] ([facility] [place] [address] MCV (RBC) [Entitic vol] 86.2 fL Normal 82.0-98.0 [facility] Comment on above: Performed By: #### L [id number] ####[facility] ([facility])[address] [place] [address] Monocytes (Bld) [#/Vol] 0.64 10*3/uL Normal 0.10-1.00 [facility] Comment on above: Performed By: #### L [id number] ####[facility] ([facility])[address] [place] [address] Monocytes/100 WBC (Bld) 9.9 % Normal 5.0-12.0 [facility] Comment on above: Performed By: #### L [id number] ####[facility] ([facility])[address] [place] [address] Neutrophils (Bld) [#/Vol] 3.54 10*3/uL Normal 1.60-7.60 [facility] Comment on above: Performed By: #### L [id number] ####[facility] ([facility])[address] [place] [address] Neutrophils/100 WBC (Bld) 54.4 % Normal 40.0-72.0 [facility] Comment on above: Performed By: #### L [id number] ####[facility] ([facility])[address] [place] [address] NRBC (PER 100 WBCS) BY AUTOMATED COUNT 0.0 % Normal 0 [facility] Comment on above: Performed By: #### L [id number] ####[facility] ([facility])[address] [place] [address] PLATELETS (10*3/UL) IN BLOOD AUTOMATED COUNT 277 10*3/uL Normal 150-400 [facility] Comment on above: Performed By: #### L [id number] ####[facility] ([facility])[address] [place] [address] RBC (Bld) [#/Vol] 4.84 10*6/uL Normal 4.20-5.70 [facility] Comment on above: Performed By: #### L [id number] ####[facility] ([facility])[address] [place] [address] WBC (Bld) [#/Vol] 6.49 10*3/uL Normal 4.00-10.60 [facility] Comment on above: Performed By: #### L [id number] ####[facility] ([facility])[address] [place] [address] COMPREHENSIVE METABOLIC PANE Roddy 07-05-2023 Albumin [Mass/Vol] 3.9 g/dL Normal 3.5-5.7 [facility] Comment on above: Performed By: #### L [id number] ####[facility] ([facility])[address] [place] [address] ALP [Catalytic activity/Vol] 127 U/L High 34-104 [facility] Comment on above: Performed By: #### L [id number] ####[facility] ([facility])[address] [place] [address] ALT [Catalytic activity/Vol] 10 U/L Normal 7-52 [facility] Comment on above: Performed By: #### L [id number] ####[facility] ([facility])[address] [place] [address] Anion gap [Moles/Vol] 14 mmol/L Normal 7-20 [facility] Comment on above: Performed By: #### L [id number] ####[facility] ([facility])[address] [place] [address] AST [Catalytic activity/Vol] 15 U/L Normal 13-39 [facility] Comment on above: Performed By: #### L [id number] ####[facility] ([facility])[address] [place] [address] Bilirubin [Mass/Vol] 0.4 mg/dL Normal 0.3-1.0 [facility] Comment on above: Performed By: #### L [id number] ####[facility] ([facility])[address] [place] [address] Calcium [Mass/Vol] 9.4 mg/dL Normal 8.6-10.3 [facility] Comment on above: Performed By: #### L [id number] ####[facility] ([facility])[address] [place] [address] Chloride [Moles/Vol] 106 mmol/L Normal 98-107 [facility] Comment on above: Performed By: #### L [id number] ####[facility] ([facility])[address] [place] [address] CO2 [Moles/Vol] 23 mmol/L Normal 21-31 [facility] Comment on above: Performed By: #### L [id number] ####[facility] ([facility])[address] [place] [address] Creatinine [Mass/Vol] 0.78 mg/dL Normal 0.70-1.30 [facility] Comment on above: Performed By: #### L [id number] ####[facility] ([facility])[address] [place] [address] GLOMERULAR FILTRATION RATE ML/MIN/1.73 SQ M.PREDICTED 96.5 mL/min/1.73m*2 Normal >60.0 [facility] Comment on above: Result Comment: The [facility]???s estimated glomerular filtration rate (eGFR) will no [...] of individuals. Performed By: #### L [id number] ####[facility] ([facility])[address] [place] [address] Glucose [Mass/Vol] 114 mg/dL High 70-100 [facility] Comment on above: Performed By: #### L [id number] ####[facility] ([facility])[address] [place] [address] Potassium [Moles/Vol] 3.5 mmol/L Normal 3.5-5.1 [facility] Comment on above: Performed By: #### L [id number] ####[facility] ([facility])[address] [place] [address] Protein [Mass/Vol] 7.5 g/dL Normal 6.0-8.3 [facility] Comment on above: Performed By: #### L [id number] ####[facility] ([facility])[address] [place] [address] Sodium [Moles/Vol] 139 mmol/L Normal 136-145 [facility] Comment on above: Performed By: #### L [id number] ####[facility] ([facility])[address] [place] [address] Urea nitrogen [Mass/Vol] 13 mg/dL Normal 7-25 [facility] Comment on above: Performed By: #### L [id number] ####[facility] ([facility])[address] [place] [address] UREA NITROGEN/CREATININ E (MASS RATIO) IN SER/PLAS 16.7 Normal [facility] Comment on above: Performed By: #### L [id number] ####[facility] ([facility])[address] [place] [address] HPon 07-05-2023 HP Normal [facility] MAGNESIUMon 07-05-2023 Magnesium [Mass/Vol] 1.8 mg/dL Low 1.9-2.7 [facility] Comment on above: Performed By: #### L [id number] ####[facility] ([facility])[address] [place] [address] NURSNOTEon 07-05-2023 YUMIKO Montes RN called admit amalia MONTES DE OCA, no new orders as of this time. Room Service Clerk verified diet order, pt placing order for dinner. Will continue to monitor Normal [facility] PHOSPHORUSon 07-05-2023 Magnesium [Mass/Vol] 3.5 mg/dL Normal 2.5-5.0 [facility] Comment on above: Performed By: #### L [id number] ####[facility] ([facility])[address] [place] [address] POCT GLUCOSE METER UNSOLICIT ED RESULTSon 07-05-2023 Glucose [Mass/Vol] 163 mg/dL High 70-105 [facility] Comment on above: Order Comment: Waive d Testing in the ED is performed under the ED CLIA certificate #[id number]. Result Comment: [email or web address] [email or web address] Performed By: #### L [id number] ####[facility] ([facility])[address] [place] [address] PROTIME-INRon 07-05-2023 INR IN PPP BY COAGULATION ASSAY 1.07 Normal 0.90-1.10 [facility] Comment on above: Result Comment: ACCC P [...] CHEST 1995;[id number]. Performed By: #### L [id number] ####[facility] ([facility])[address] [place] [address] PROTHROMBIN TIME (PT) IN PPP BY COAGULATION ASSAY 13.9 Seconds Normal 12.3-14.8 [facility] Comment on above: Performed By: #### L [id number] ####[facility] ([facility])[address] [place] [address] TROPONIN Ion 07-05-2023 Troponin I.cardiac [Mass/Vol] 0.12 ng/mL Critically high 0.00-0.04 [facility] Comment on above: Result Comment: M-IA EVIOUS CRITICAL RESULTPrevious result verified on 07/05/20235 on specimen/case [id number] called with component Troponin I for procedure Troponin I with value 0.23 ng/mL. Performed By: #### L [id number] ####[facility] ([facility])[address] [facility] [place] [address] Troponin I.cardiac [Mass/Vol] 0.23 ng/mL Critically high 0.00-0.04 [facility] Comment on above: Result Comment: M-CR ITICAL RESULT(S) REVIEWED, CALLED TO AND READ BACK BY MARY SIMMONS RN AT 2224M-TROPONIN INITIAL CRITICAL HIGH; RESPUN AND RETESTED Performed By: #### L [id number] ####[facility] ([facility])[address] [facility] MedicalPRE[facility] [place] [address] Orders Onlyon 07-02-2023 Orders Only [id number] Gui Ortiz Sr. 1955 M Date Provider Department Center 07/02/2023 [facility] ONC [facility] Family History Family history unknown: Yes Normal [facility] 29on 05-16-2023 29 Addended by: PASCUAL VELARDE on: 05/16/2023 03:51 PM Modules accepted: Orders Normal [facility] 29 Addended by: PASCUAL VELARDE on: 05/16/2023 03:50 PM Modules accepted: Orders Normal [facility] Follow-Upon 05-16-2023 Follow-Up Normal [facility] 36on 05-03-2023 36 Normal [facility] Telephoneon 05-03-2023 Telephone [phone] DejonSarinaGui 1955 M Date Provider Department Center 05/03/2023 Jake-SAEID KIMBALL HVCVASENDO PA [facility] Family History Family history unknown: Yes Normal [facility] 36on 05-02-2023 36 Normal [facility] 30on 05-01-2023 30 Normal [facility] 30 Normal [facility] BASIC METABOLIC PANELon 04-17 Anion gap [Moles/Vol] 11 mmol/L Normal 7-20 [facility] Comment on above: Performed By: #### L [id number] ####[facility] ([facility])[address] [place] [address] Calcium [Mass/Vol] 8.4 mg/dL Low 8.6-10.3 [facility] Comment on above: Performed By: #### L [id number] ####[facility] ([facility])[address] [place] [address] Chloride [Moles/Vol] 109 mmol/L High 98-107 [facility] Comment on above: Performed By: #### L [id number] ####[facility] ([facility])[address] [place] [address] CO2 [Moles/Vol] 22 mmol/L Normal 21-31 [facility] Comment on above: Performed By: #### L [id number] ####[facility] ([facility])[address] [place] [address] Creatinine [Mass/Vol] 0.62 mg/dL Low 0.70-1.30 [facility] Comment on above: Performed By: #### L [id number] ####[facility] ([facility])[address] [place] [address] GLOMERULAR FILTRATION RATE ML/MIN/1.73 SQ M.PREDICTED 103.5 mL/min/1.73m*2 Normal >60.0 [facility] Comment on above: Result Comment: The [facility]???s estimated glomerular filtration rate (eGFR) will no [...] of individuals. Performed By: #### L [id number] ####[facility] ([facility])[address] [place] [address] Glucose [Mass/Vol] 98 mg/dL Normal 70-100 [facility] Comment on above: Performed By: #### L [id number] ####[facility] ([facility])[address] [place] [address] Potassium [Moles/Vol] 3.7 mmol/L Normal 3.5-5.1 [facility] Comment on above: Performed By: #### L [id number] ####[facility] ([facility])[address] [place] [address] Sodium [Moles/Vol] 138 mmol/L Normal 136-145 [facility] Comment on above: Performed By: #### L [id number] ####[facility] ([facility])[address] [place] [address] Urea nitrogen [Mass/Vol] 12 mg/dL Normal 7-25 [facility] Comment on above: Performed By: #### L [id number] ####[facility] ([facility])[address] [place] [address] UREA NITROGEN/CREATININ E (MASS RATIO) IN SER/PLAS 19.4 Normal [facility] Comment on above: Performed By: #### L [id number] ####[facility] ([facility])[address] [place] [address] CBCon 05-01-2023 Erythrocyte distribution width (RBC) [Ratio] 14.5 % Normal 11.5-15.0 [facility] Comment on above: Performed By: #### L [id number] ####[facility] ([facility])[address] [place] [address] ERYTHROCYTE MEAN CORPUSCULAR HEMOGLOBIN CONCENTRATION (G/DL) BY AUTOMATED 33.2 g/dL Normal 32.0-35.0 [facility] Comment on above: Performed By: #### L [id number] ####[facility] ([facility])[address] [place] [address] Hematocrit (Bld) [Volume fraction] 27.4 % Low 39.0-55.0 [facility] Comment on above: Performed By: #### L [id number] ####[facility] ([facility])[address] [place] [address] Hemoglobin (Bld) [Mass/Vol] 9.1 g/dL Low 13.0-17.0 [facility] Comment on above: Performed By: #### L [id number] ####[facility] ([facility])[address] [place] [address] MCH (RBC) [Entitic mass] 30.7 pg Normal 27.0-33.0 [facility] Comment on above: Performed By: #### L [id number] ####[facility] ([facility])[address] [place] [address] MCV (RBC) [Entitic vol] 92.6 fL Normal 82.0-98.0 [facility] Comment on above: Performed By: #### L [id number] ####[facility] ([facility] [place] [address] PLATELETS (10*3/UL) IN BLOOD AUTOMATED COUNT 276 10*3/uL Normal 150-400 [facility] Comment on above: Performed By: #### L [id number] ####[facility] ([facility])[address] [place] [address] RBC (Bld) [#/Vol] 2.96 10*6/uL Low 4.20-5.70 [facility] Comment on above: Performed By: #### L [id number] ####[facility] ([facility])[address] [place] [address] WBC (Bld) [#/Vol] 6.87 10*3/uL Normal 4.00-10.60 [facility] Comment on above: Performed By: #### L [id number] ####[facility] ([facility])[address] [place] [address] DSon 05-01-2023 DS Normal [facility] MAGNESIUMon 05-01-2023 Magnesium [Mass/Vol] 1.7 mg/dL Low 1.9-2.7 [facility] Comment on above: Performed By: #### L [id number] ####[facility] ([facility])[address] [place] [address] NURSNOTEon 05-01-2023 NURSNOTE Normal [facility] NURSNOTE Normal [facility] PHOSPHORUSon 05-01-2023 Magnesium [Mass/Vol] 3.8 mg/dL Normal 2.5-5.0 [facility] Comment on above: Performed By: #### L [id number] ####[facility] ([facility])[address] [place] [address] POCT GLUCOSE METER UNSOLICIT ED RESULTSon 05-01-2023 Glucose [Mass/Vol] 116 mg/dL High 70-105 [facility] Comment on above: Order Comment: Waive d Testing in the ED is performed under the ED CLIA certificate #[id number]. Result Comment: [email or web address] Performed By: #### L [id number] ####[facility] ([facility])[address] [place] [address] Glucose [Mass/Vol] 115 mg/dL High 70-105 [facility] Comment on above: Order Comment: Waive d Testing in the ED is performed under the ED CLIA certificate #[id number]. Result Comment: [email or web address] Performed By: #### L [id number] ####[facility] ([facility])[address] [place] [address] 30on 04-30-2023 30 Normal [facility] 30 Normal [facility] BASIC METABOLIC PANELon 04-17 Anion gap [Moles/Vol] 12 mmol/L Normal 7-20 [facility] Comment on above: Performed By: #### L [id number] ####[facility] ([facility])[address] [place] [address] Calcium [Mass/Vol] 8.3 mg/dL Low 8.6-10.3 [facility] Comment on above: Performed By: #### L [id number] ####[facility] ([facility])[address] [place] [address] Chloride [Moles/Vol] 109 mmol/L High 98-107 [facility] Comment on above: Performed By: #### L [id number] ####[facility] ([facility])[address] [place] [address] CO2 [Moles/Vol] 21 mmol/L Normal 21-31 [facility] Comment on above: Performed By: #### L [id number] ####[facility] ([facility])[address] [place] [address] Creatinine [Mass/Vol] 0.70 mg/dL Normal 0.70-1.30 [facility] Comment on above: Performed By: #### L [id number] ####[facility] ([facility])[address] [place] [address] GLOMERULAR FILTRATION RATE ML/MIN/1.73 SQ M.PREDICTED 99.7 mL/min/1.73m*2 Normal >60.0 [facility] Comment on above: Result Comment: The [facility]???s estimated glomerular filtration rate (eGFR) will no [...] of individuals. Performed By: #### L [id number] ####[facility] ([facility])[address] [place] [address] Glucose [Mass/Vol] 104 mg/dL High 70-100 [facility] Comment on above: Performed By: #### L [id number] ####[facility] ([facility])[address] [place] [address] Potassium [Moles/Vol] 3.7 mmol/L Normal 3.5-5.1 [facility] Comment on above: Performed By: #### L [id number] ####[facility] ([facility])[address] [place] [address] Sodium [Moles/Vol] 138 mmol/L Normal 136-145 [facility] Comment on above: Performed By: #### L [id number] ####[facility] ([facility])[address] [place] [address] Urea nitrogen [Mass/Vol] 15 mg/dL Normal 7-25 [facility] Comment on above: Performed By: #### L [id number] ####[facility] ([facility])[address] [place] [address] UREA NITROGEN/CREATININ E (MASS RATIO) IN SER/PLAS 21.4 Normal [facility] Comment on above: Performed By: #### L [id number] ####[facility] ([facility])[address] [place] [address] CBCon 04-30-2023 Erythrocyte distribution width (RBC) [Ratio] 13.8 % Normal 11.5-15.0 [facility] Comment on above: Performed By: #### L [id number] ####[facility] ([facility])[address] [place] [address] ERYTHROCYTE MEAN CORPUSCULAR HEMOGLOBIN CONCENTRATION (G/DL) BY AUTOMATED 32.6 g/dL Normal 32.0-35.0 [facility] Comment on above: Performed By: #### L [id number] ####[facility] ([facility])[address] [place] [address] Hematocrit (Bld) [Volume fraction] 27.3 % Low 39.0-55.0 [facility] Comment on above: Performed By: #### L [id number] ####[facility] ([facility])[address] [place] [address] Hemoglobin (Bld) [Mass/Vol] 8.9 g/dL Low 13.0-17.0 [facility] Comment on above: Performed By: #### L [id number] ####[facility] ([facility])[address] [place] [address] MCH (RBC) [Entitic mass] 30.4 pg Normal 27.0-33.0 [facility] Comment on above: Performed By: #### L [id number] ####[facility] ([facility])[address] [place] [address] MCV (RBC) [Entitic vol] 93.2 fL Normal 82.0-98.0 [facility] Comment on above: Performed By: #### L [id number] ####[facility] ([facility])[address] [place] [address] PLATELETS (10*3/UL) IN BLOOD AUTOMATED COUNT 219 10*3/uL Normal 150-400 [facility] Comment on above: Performed By: #### L [id number] ####[facility] ([facility])[address] [place] [address] RBC (Bld) [#/Vol] 2.93 10*6/uL Low 4.20-5.70 [facility] Comment on above: Performed By: #### L [id number] ####[facility] ([facility])[address] [place] [address] WBC (Bld) [#/Vol] 6.80 10*3/uL Normal 4.00-10.60 [facility] Comment on above: Performed By: #### L [id number] ####[facility] ([facility])[address] [place] [address] MAGNESIUMon 04-30-2023 Magnesium [Mass/Vol] 1.7 mg/dL Low 1.9-2.7 [facility] Comment on above: Performed By: #### L [id number] ####[facility] ([facility])[address] [place] [address] PHOSPHORUSon 04-30-2023 Magnesium [Mass/Vol] 4.0 mg/dL Normal 2.5-5.0 [facility] Comment on above: Performed By: #### L [id number] ####[facility] ([facility])[place] [address] POCT GLUCOSE METER UNSOLICIT ED RESULTSon 04-30-2023 Glucose [Mass/Vol] 123 mg/dL High 70-105 [facility] Comment on above: Order Comment: Waive d Testing in the ED is performed under the ED CLIA certificate #[id number]. Result Comment: [email or web address] Performed By: #### L [id number] ####[facility] ([facility])[address] [place] [address] Glucose [Mass/Vol] 138 mg/dL High 70-105 [facility] Comment on above: Order Comment: Waive d Testing in the ED is performed under the ED CLIA certificate #[id number]. Result Comment: [email or web address] Performed By: #### L [id number] ####[facility] ([facility])[address] [place] [address] 30on 04-29-2023 30 Normal [facility] 30 Normal [facility] 30 Normal [facility] BASIC METABOLIC PANELon 04-17 Anion gap [Moles/Vol] 11 mmol/L Normal 7-20 [facility] Comment on above: Performed By: #### L [id number] ####[facility] ([facility])[address] [place] [address] Calcium [Mass/Vol] 8.4 mg/dL Low 8.6-10.3 [facility] Comment on above: Performed By: #### L [id number] ####[facility] ([facility])[address] [place] [address] Chloride [Moles/Vol] 109 mmol/L High 98-107 [facility] Comment on above: Performed By: #### L [id number] ####[facility] ([facility])[address] [place] [address] CO2 [Moles/Vol] 20 mmol/L Low 21-31 [facility] Comment on above: Performed By: #### L [id number] ####[facility] ([facility])[address] [place] [address] Creatinine [Mass/Vol] 0.68 mg/dL Low 0.70-1.30 [facility] Comment on above: Performed By: #### L [id number] ####[facility] ([facility])[address] [place] [address] GLOMERULAR FILTRATION RATE ML/MIN/1.73 SQ M.PREDICTED 100.6 mL/min/1.73m*2 Normal >60.0 [facility] Comment on above: Result Comment: The [facility]???s estimated glomerular filtration rate (eGFR) will no [...] of individuals. Performed By: #### L [id number] ####[facility] ([facility])[address] [place] [address] Glucose [Mass/Vol] 100 mg/dL Normal 70-100 [facility] Comment on above: Performed By: #### L [id number] ####[facility] ([facility])[address] [place] [address] Potassium [Moles/Vol] 3.8 mmol/L Normal 3.5-5.1 [facility] Comment on above: Performed By: #### L [id number] ####[facility] ([facility])[address] [place] [address] Sodium [Moles/Vol] 136 mmol/L Normal 136-145 [facility] Comment on above: Performed By: #### L [id number] ####[facility] ([facility])[address] [place] [address] Urea nitrogen [Mass/Vol] 18 mg/dL Normal 7-25 [facility] Comment on above: Performed By: #### L [id number] ####[facility] ([facility])[address] [place] [address] UREA NITROGEN/CREATININ E (MASS RATIO) IN SER/PLAS 26.5 Normal [facility] Comment on above: Performed By: #### L [id number] ####[facility] ([facility])[address] [place] [address] CBCon 04-29-2023 Erythrocyte distribution width (RBC) [Ratio] 13.6 % Normal 11.5-15.0 [facility] Comment on above: Performed By: #### L [id number] ####[facility] ([facility])[address] [place] [address] ERYTHROCYTE MEAN CORPUSCULAR HEMOGLOBIN CONCENTRATION (G/DL) BY AUTOMATED 33.7 g/dL Normal 32.0-35.0 [facility] Comment on above: Performed By: #### L [id number] ####[facility] ([facility])[address] [place] [address] Hematocrit (Bld) [Volume fraction] 27.0 % Low 39.0-55.0 [facility] Comment on above: Performed By: #### L [id number] ####[facility] ([facility])[address] [place] [address] Hemoglobin (Bld) [Mass/Vol] 9.1 g/dL Low 13.0-17.0 [facility] Comment on above: Performed By: #### L [id number] ####[facility] ([facility])[address] [place] [address] MCH (RBC) [Entitic mass] 30.4 pg Normal 27.0-33.0 [facility] Comment on above: Performed By: #### L [id number] ####[facility] ([facility])[address] [place] [address] MCV (RBC) [Entitic vol] 90.3 fL Normal 82.0-98.0 [facility] Comment on above: Performed By: #### L [id number] ####[facility] ([facility])[address] [place] [address] PLATELETS (10*3/UL) IN BLOOD AUTOMATED COUNT 188 10*3/uL Normal 150-400 [facility] Comment on above: Performed By: #### L [id number] ####[facility] ([facility])[address] [place] [address] RBC (Bld) [#/Vol] 2.99 10*6/uL Low 4.20-5.70 [facility] Comment on above: Performed By: #### L [id number] ####[facility] ([facility])[address] [place] [address] WBC (Bld) [#/Vol] 7.24 10*3/uL Normal 4.00-10.60 [facility] Comment on above: Performed By: #### L [id number] ####[facility] ([facility])[address] [place] [address] CONSULTon 04-29-2023 CONSULT Normal [facility] MAGNESIUMon 04-29-2023 Magnesium [Mass/Vol] 1.7 mg/dL Low 1.9-2.7 [facility] Comment on above: Performed By: #### L [id number] ####[facility] ([facility])[address] [place] [address] PHOSPHORUSon 04-29-2023 Magnesium [Mass/Vol] 3.9 mg/dL Normal 2.5-5.0 [facility] Comment on above: Performed By: #### L [id number] ####[facility] ([facility])[address] [place] [address] POCT GLUCOSE METER UNSOLICIT ED RESULTSon 04-29-2023 Glucose [Mass/Vol] 111 mg/dL High 70-105 [facility] Comment on above: Order Comment: Waive d Testing in the ED is performed under the ED CLIA certificate #[id number]. Result Comment: [email or web address] Performed By: #### L [id number] ####[facility] ([facility])[address] [place] [address] Glucose [Mass/Vol] 133 mg/dL High 70-105 [facility] Comment on above: Order Comment: Waive d Testing in the ED is performed under the ED CLIA certificate #[id number]. Result Comment: [email or web address] shea Performed By: #### L [id number] ####[facility] ([facility])[address] [place] [address] Glucose [Mass/Vol] 128 mg/dL High 70-105 [facility] Comment on above: Order Comment: Waive d Testing in the ED is performed under the ED CLIA certificate #[id number]. Result Comment: [email or web address] shea Performed By: #### L [id number] ####[facility] ([facility])[address] [place] [address] 30on 04-28-2023 30 Normal [facility] BASIC METABOLIC PANELon 04-17 Anion gap [Moles/Vol] 10 mmol/L Normal 7-20 [facility] Comment on above: Performed By: #### L [id number] ####[facility] ([facility])[address] [place] [address] Calcium [Mass/Vol] 8.1 mg/dL Low 8.6-10.3 [facility] Comment on above: Performed By: #### L [id number] ####[facility] ([facility])[address] [place] [address] Chloride [Moles/Vol] 109 mmol/L High 98-107 [facility] Comment on above: Performed By: #### L [id number] ####[facility] ([facility])[address] [place] [address] CO2 [Moles/Vol] 22 mmol/L Normal 21-31 [facility] Comment on above: Performed By: #### L [id number] ####[facility] ([facility])[address] [place] [address] Creatinine [Mass/Vol] 0.62 mg/dL Low 0.70-1.30 [facility] Comment on above: Performed By: #### L [id number] ####[facility] ([facility])[address] [place] [address] GLOMERULAR FILTRATION RATE ML/MIN/1.73 SQ M.PREDICTED 103.5 mL/min/1.73m*2 Normal >60.0 [facility] Comment on above: Result Comment: The [facility]???s estimated glomerular filtration rate (eGFR) will no [...] of individuals. Performed By: #### L [id number] ####[facility] ([facility])[address] [place] [address] Glucose [Mass/Vol] 102 mg/dL High 70-100 [facility] Comment on above: Performed By: #### L [id number] ####[facility] ([facility])[address] [place] [address] Potassium [Moles/Vol] 3.4 mmol/L Low 3.5-5.1 [facility] Comment on above: Performed By: #### L [id number] ####[facility] ([facility])[address] [place] [address] Sodium [Moles/Vol] 138 mmol/L Normal 136-145 [facility] Comment on above: Performed By: #### L [id number] ####[facility] ([facility])[address] [place] [address] Urea nitrogen [Mass/Vol] 22 mg/dL Normal 7-25 [facility] Comment on above: Performed By: #### L [id number] ####[facility] ([facility])[address] [place] [address] UREA NITROGEN/CREATININ E (MASS RATIO) IN SER/PLAS 35.5 Normal [facility] Comment on above: Performed By: #### L [id number] ####[facility] ([facility])[address] [place] [address] CBC WITH AUTO DIFFERENTIALon 04-28-2023 Basophils (Bld) [#/Vol] 0.02 10*3/uL Normal 0.00-0.20 [facility] Comment on above: Performed By: #### L [id number] ####[facility] ([facility])[address] [place] [address] Basophils/100 WBC (Bld) 0.2 % Normal 0.0-1.0 [facility] Comment on above: Performed By: #### L [id number] ####[facility] ([facility])[address] [place] [address] Eosinophils (Bld) [#/Vol] 0.09 10*3/uL Normal 0.00-0.50 [facility] Comment on above: Performed By: #### L [id number] ####[facility] ([facility])[address] [place] [address] Eosinophils/100 WBC (Bld) 1.1 % Normal 0.0-6.0 [facility] Comment on above: Performed By: #### L [id number] ####[facility] ([facility])[address] [place] [address] Erythrocyte distribution width (RBC) [Ratio] 13.6 % Normal 11.5-15.0 [facility] Comment on above: Performed By: #### L [id number] ####[facility] ([facility])[address] [place] [address] ERYTHROCYTE MEAN CORPUSCULAR HEMOGLOBIN CONCENTRATION (G/DL) BY AUTOMATED 33.1 g/dL Normal 32.0-35.0 [facility] Comment on above: Performed By: #### L [id number] ####[facility] ([facility])[address] [place] [address] Hematocrit (Bld) [Volume fraction] 32.3 % Low 39.0-55.0 [facility] Comment on above: Performed By: #### L [id number] ####[facility] ([facility])[address] [place] [address] Hemoglobin (Bld) [Mass/Vol] 10.7 g/dL Low 13.0-17.0 [facility] Comment on above: Performed By: #### L [id number] ####[facility] ([facility])[address] [place] [address] Immature granulocytes (Bld) [#/Vol] 0.06 10*3/uL Normal 0.00-0.20 [facility] Comment on above: Performed By: #### L [id number] ####[facility] ([facility])[address] [place] [address] Immature granulocytes/100 WBC (Bld) 0.7 % Normal 0.0-1.0 [facility] Comment on above: Performed By: #### L [id number] ####[facility] ([facility])[address] [place] [address] Lymphocytes (Bld) [#/Vol] 1.82 10*3/uL Normal 1.20-4.00 [facility] Comment on above: Performed By: #### L [id number] ####[facility] ([facility])[address] [place] [address] Lymphocytes/100 WBC (Bld) 22.2 % Normal 20.0-45.0 [facility] Comment on above: Performed By: #### L [id number] ####[facility] ([facility])[address] [place] [address] MCH (RBC) [Entitic mass] 30.3 pg Normal 27.0-33.0 [facility] Comment on above: Performed By: #### L [id number] ####[facility] ([facility])[address] [place] [address] MCV (RBC) [Entitic vol] 91.5 fL Normal 82.0-98.0 [facility] Comment on above: Performed By: #### L [id number] ####[facility] ([facility])[address] [place] [address] Monocytes (Bld) [#/Vol] 0.67 10*3/uL Normal 0.10-1.00 [facility] Comment on above: Performed By: #### L [id number] ####[facility] ([facility])[address] [place] [address] Monocytes/100 WBC (Bld) 8.2 % Normal 5.0-12.0 [facility] Comment on above: Performed By: #### L [id number] ####[facility] ([facility])[address] [place] [address] Neutrophils (Bld) [#/Vol] 5.55 10*3/uL Normal 1.60-7.60 [facility] Comment on above: Performed By: #### L [id number] ####[facility] ([facility])[address] [place] [address] Neutrophils/100 WBC (Bld) 67.6 % Normal 40.0-72.0 [facility] Comment on above: Performed By: #### L [id number] ####[facility] ([facility])[address] [place] [address] NRBC (PER 100 WBCS) BY AUTOMATED COUNT 0.0 % Normal 0 [facility] Comment on above: Performed By: #### L [id number] ####[facility] ([facility])[address] [place] [address] PLATELETS (10*3/UL) IN BLOOD AUTOMATED COUNT 160 10*3/uL Normal 150-400 [facility] Comment on above: Performed By: #### L [id number] ####[facility] ([facility])[address] [place] [address] RBC (Bld) [#/Vol] 3.53 10*6/uL Low 4.20-5.70 [facility] Comment on above: Performed By: #### L [id number] ####[facility] ([facility])[address] [place] [address] WBC (Bld) [#/Vol] 8.21 10*3/uL Normal 4.00-10.60 [facility] Comment on above: Performed By: #### L [id number] ####[facility] ([facility])[address] [place] [address] MAGNESIUMon 04-28-2023 Magnesium [Mass/Vol] 1.7 mg/dL Low 1.9-2.7 [facility] Comment on above: Performed By: #### L [id number] ####[facility] ([facility])[address] [place] [address] PHOSPHORUSon 04-28-2023 Magnesium [Mass/Vol] 3.9 mg/dL Normal 2.5-5.0 [facility] Comment on above: Performed By: #### L [id number] ####[facility] ([facility])[address] [place] [address] POCT GLUCOSE METER UNSOLICIT ED RESULTSon 04-28-2023 Glucose [Mass/Vol] 111 mg/dL High 70-105 [facility] Comment on above: Order Comment: Waive d Testing in the ED is performed under the ED CLIA certificate #[id number]. Result Comment: [email or web address] [email or web address] Performed By: #### L [id number] ####[facility] ([facility])[address] [place] [address] Glucose [Mass/Vol] 86 mg/dL Normal 70-105 [facility] Comment on above: Order Comment: Waive d Testing in the ED is performed under the ED CLIA certificate #[id number]. Result Comment: [email or web address] Performed By: #### L [id number] ####[facility] ([facility])[address] [place] [address] Glucose [Mass/Vol] 159 mg/dL High 70-105 [facility] Comment on above: Order Comment: Waive d Testing in the ED is performed under the ED CLIA certificate #[id number]. Result Comment: [email or web address] Performed By: #### L [id number] ####[facility] ([facility])[address] [place] [address] Glucose [Mass/Vol] 109 mg/dL High 70-105 [facility] Comment on above: Order Comment: Waive d Testing in the ED is performed under the ED CLIA certificate #[id number]. Result Comment: [email or web address] [email or web address] Performed By: #### L [id number] ####[facility] ([facility])[address] [place] [address] 30on 04-27-2023 30 Normal [facility] BASIC METABOLIC PANELon 04-17 Anion gap [Moles/Vol] 11 mmol/L Normal 7-20 [facility] Comment on above: Performed By: #### L [id number] ####[facility] ([facility])[address] [place] [address] Calcium [Mass/Vol] 8.2 mg/dL Low 8.6-10.3 [facility] Comment on above: Performed By: #### L [id number] ####[facility] ([facility])[address] [place] [address] Chloride [Moles/Vol] 112 mmol/L High 98-107 [facility] Comment on above: Performed By: #### L [id number] ####[facility] ([facility])[address] [place] [address] CO2 [Moles/Vol] 23 mmol/L Normal 21-31 [facility] Comment on above: Performed By: #### L [id number] ####[facility] ([facility])[address] [place] [address] Creatinine [Mass/Vol] 0.64 mg/dL Low 0.70-1.30 [facility] Comment on above: Performed By: #### L [id number] ####[facility] ([facility])[address] [place] [address] GLOMERULAR FILTRATION RATE ML/MIN/1.73 SQ M.PREDICTED 102.5 mL/min/1.73m*2 Normal >60.0 [facility] Comment on above: Result Comment: The [facility]???s estimated glomerular filtration rate (eGFR) will no [...] of individuals. Performed By: #### L [id number] ####[facility] ([facility])[address] [place] [address] Glucose [Mass/Vol] 116 mg/dL High 70-100 [facility] Comment on above: Performed By: #### L [id number] ####[facility] ([facility])[address] [place] [address] Potassium [Moles/Vol] 3.9 mmol/L Normal 3.5-5.1 [facility] Comment on above: Performed By: #### L [id number] ####[facility] ([facility])[address] [place] [address] Sodium [Moles/Vol] 142 mmol/L Normal 136-145 [facility] Comment on above: Performed By: #### L [id number] ####[facility] ([facility])[address] [place] [address] Urea nitrogen [Mass/Vol] 22 mg/dL Normal 7-25 [facility] Comment on above: Performed By: #### L [id number] ####[facility] ([facility])[address] [place] [address] UREA NITROGEN/CREATININ E (MASS RATIO) IN SER/PLAS 34.4 Normal [facility] Comment on above: Performed By: #### L [id number] ####[facility] ([facility])[address] [place] [address] CBC WITH AUTO DIFFERENTIALon 04-27-2023 Basophils (Bld) [#/Vol] 0.02 10*3/uL Normal 0.00-0.20 [facility] Comment on above: Performed By: #### L [id number] ####[facility] ([facility])[address] [place] [address] Basophils/100 WBC (Bld) 0.2 % Normal 0.0-1.0 [facility] Comment on above: Performed By: #### L [id number] ####[facility] ([facility])[address] [place] [address] Eosinophils (Bld) [#/Vol] 0.05 10*3/uL Normal 0.00-0.50 [facility] Comment on above: Performed By: #### L [id number] ####[facility] ([facility])[address] [place] [address] Eosinophils/100 WBC (Bld) 0.5 % Normal 0.0-6.0 [facility] Comment on above: Performed By: #### L [id number] ####[facility] ([facility])[address] [place] [address] Erythrocyte distribution width (RBC) [Ratio] 13.6 % Normal 11.5-15.0 [facility] Comment on above: Performed By: #### L [id number] ####[facility] ([facility])[address] [place] [address] ERYTHROCYTE MEAN CORPUSCULAR HEMOGLOBIN CONCENTRATION (G/DL) BY AUTOMATED 33.7 g/dL Normal 32.0-35.0 [facility] Comment on above: Performed By: #### L [id number] ####[facility] ([facility])[address] [place] [address] Hematocrit (Bld) [Volume fraction] 26.4 % Low 39.0-55.0 [facility] Comment on above: Performed By: #### L [id number] ####[facility] ([facility])[address] [place] [address] Hemoglobin (Bld) [Mass/Vol] 8.9 g/dL Low 13.0-17.0 [facility] Comment on above: Performed By: #### L [id number] ####[facility] ([facility])[address] [place] [address] Immature granulocytes (Bld) [#/Vol] 0.07 10*3/uL Normal 0.00-0.20 [facility] Comment on above: Performed By: #### L [id number] ####[facility] ([facility])[address] [place] [address] Immature granulocytes/100 WBC (Bld) 0.8 % Normal 0.0-1.0 [facility] Comment on above: Performed By: #### L [id number] ####[facility] ([facility])[address] [place] [address] Lymphocytes (Bld) [#/Vol] 1.24 10*3/uL Normal 1.20-4.00 [facility] Comment on above: Performed By: #### L [id number] ####[facility] ([facility])[address] [place] [address] Lymphocytes/100 WBC (Bld) 13.3 % Low 20.0-45.0 [facility] Comment on above: Performed By: #### L [id number] ####[facility] ([facility])[address] [place] [address] MCH (RBC) [Entitic mass] 30.5 pg Normal 27.0-33.0 [facility] Comment on above: Performed By: #### L [id number] ####[facility] ([facility])[address] [place] [address] MCV (RBC) [Entitic vol] 90.4 fL Normal 82.0-98.0 [facility] Comment on above: Performed By: #### L [id number] ####[facility] ([facility])[address] [place] [address] Monocytes (Bld) [#/Vol] 0.72 10*3/uL Normal 0.10-1.00 [facility] Comment on above: Performed By: #### L [id number] ####[facility] ([facility])[address] [place] [address] Monocytes/100 WBC (Bld) 7.7 % Normal 5.0-12.0 [facility] Comment on above: Performed By: #### L [id number] ####[facility] ([facility])[address] [place] [address] Neutrophils (Bld) [#/Vol] 7.22 10*3/uL Normal 1.60-7.60 [facility] Comment on above: Performed By: #### L [id number] ####[facility] ([facility])[address] [place] [address] Neutrophils/100 WBC (Bld) 77.5 % High 40.0-72.0 [facility] Comment on above: Performed By: #### L [id number] ####[facility] ([facility])[address] [place] [address] NRBC (PER 100 WBCS) BY AUTOMATED COUNT 0.0 % Normal 0 [facility] Comment on above: Performed By: #### L [id number] ####[facility] ([facility])[address] [place] [address] PLATELETS (10*3/UL) IN BLOOD AUTOMATED COUNT 100 10*3/uL Low 150-400 [facility] Comment on above: Performed By: #### L [id number] ####[facility] ([facility])[address] [place] [address] RBC (Bld) [#/Vol] 2.92 10*6/uL Low 4.20-5.70 [facility] Comment on above: Performed By: #### L [id number] ####[facility] ([facility])[address] [place] [address] WBC (Bld) [#/Vol] 9.32 10*3/uL Normal 4.00-10.60 [facility] Comment on above: Performed By: #### L [id number] ####[facility] ([facility])[address] [place] [address] MAGNESIUMon 04-27-2023 Magnesium [Mass/Vol] 1.9 mg/dL Normal 1.9-2.7 [facility] Comment on above: Performed By: #### L [id number] ####[facility] ([facility])[address] [place] [address] PHOSPHORUSon 04-27-2023 Magnesium [Mass/Vol] 3.5 mg/dL Normal 2.5-5.0 [facility] Comment on above: Performed By: #### L [id number] ####[facility] ([facility])[address] [place] [address] POCT GLUCOSE METER UNSOLICIT ED RESULTSon 04-27-2023 Glucose [Mass/Vol] 100 mg/dL Normal 70-105 [facility] Comment on above: Order Comment: Waive d Testing in the ED is performed under the ED CLIA certificate #[id number]. Result Comment: afin ch3 Performed By: #### L [id number] ####[facility] ([facility])[address] [place] [address] Glucose [Mass/Vol] 165 mg/dL High 70-105 [facility] Comment on above: Order Comment: Waive d Testing in the ED is performed under the ED CLIA certificate #[id number]. Result Comment: mitra shea Performed By: #### L [id number] ####[facility] ([employer])[address] [facility] [address] Glucose [Mass/Vol] 157 mg/dL High 70-105 [facility] Comment on above: Order Comment: Waive d Testing in the ED is performed under the ED CLIA certificate #[id number]. Result Comment: mitra shea Performed By: #### L [id number] ####[facility] ([employer])[address] [facility] [place] [address] Glucose [Mass/Vol] 112 mg/dL High 70-105 [facility] Comment on above: Order Comment: Waive d Testing in the ED is performed under the ED CLIA certificate #[id number]. Result Comment: afin ch3 Performed By: #### L [id number] ####[facility] ([employer])[address] [facility] [place] [address] PROTIME-INRon 04-27-2023 INR IN PPP BY COAGULATION ASSAY 1.21 High 0.90-1.10 [facility] Comment on above: Result Comment: ACCC P [...] CHEST 1995;[id number]. Performed By: #### L [id number] ####[facility] ([facility])[address] [place] [address] PROTHROMBIN TIME (PT) IN PPP BY COAGULATION ASSAY 15.3 Seconds High 12.3-14.8 [facility] Comment on above: Performed By: #### L [id number] ####[facility] ([facility] [place] [address] 30on 04-26-2023 30 Normal [facility] 30 Normal [facility] 30 Normal [facility] 30 Normal [facility] BASIC METABOLIC PANELon 11- Anion gap [Moles/Vol] 10 mmol/L Normal 7-20 [facility] Comment on above: Performed By: #### L [id number] ####[facility] ([facility])[address] [place] [address] Calcium [Mass/Vol] 8.5 mg/dL Low 8.6-10.3 [facility] Comment on above: Performed By: #### L [id number] ####[facility] ([facility] [place] [address] Chloride [Moles/Vol] 109 mmol/L High 98-107 [facility] Comment on above: Performed By: #### L [id number] ####[facility] ([facility])[address] [place] [address] CO2 [Moles/Vol] 25 mmol/L Normal 21-31 [facility] Comment on above: Performed By: #### L [id number] ####[facility] ([facility])[address] [place] [address] Creatinine [Mass/Vol] 0.62 mg/dL Low 0.70-1.30 [facility] Comment on above: Performed By: #### L [id number] ####[facility] ([facility])[address] [place] [address] GLOMERULAR FILTRATION RATE ML/MIN/1.73 SQ M.PREDICTED 103.5 mL/min/1.73m*2 Normal >60.0 [facility] Comment on above: Result Comment: The [facility]???s estimated glomerular filtration rate (eGFR) will no [...] of individuals. Performed By: #### L [id number] ####[facility] ([facility])[address] [place] [address] Glucose [Mass/Vol] 136 mg/dL High 70-100 [facility] Comment on above: Performed By: #### L [id number] ####[facility] ([facility])[address] [place] [address] Potassium [Moles/Vol] 3.6 mmol/L Normal 3.5-5.1 [facility] Comment on above: Performed By: #### L [id number] ####[facility] ([facility])[address] [place] [address] Sodium [Moles/Vol] 140 mmol/L Normal 136-145 [facility] Comment on above: Performed By: #### L [id number] ####[facility] ([facility])[address] [facility] [place] [address] Urea nitrogen [Mass/Vol] 18 mg/dL Normal 7-25 [facility] Comment on above: Performed By: #### L [id number] ####[facility] ([facility])[address] [place] [address] UREA NITROGEN/CREATININ E (MASS RATIO) IN SER/PLAS 29.0 Normal [facility] Comment on above: Performed By: #### L [id number] ####[facility] ([facility])[address] [place] [address] Anion gap [Moles/Vol] 9 mmol/L Normal 7-20 [facility] Comment on above: Performed By: #### L [id number] ####[facility] ([facility])[address] [place] [address] Calcium [Mass/Vol] 7.8 mg/dL Low 8.6-10.3 [facility] Comment on above: Performed By: #### L [id number] ####[facility] ([facility])[address] [place] [address] Chloride [Moles/Vol] 112 mmol/L High 98-107 [facility] Comment on above: Performed By: #### L [id number] ####[facility] ([facility])[address] [place] [address] CO2 [Moles/Vol] 23 mmol/L Normal 21-31 [facility] Comment on above: Performed By: #### L [id number] ####[facility] ([facility])[address] [place] [address] Creatinine [Mass/Vol] 0.61 mg/dL Low 0.70-1.30 [facility] Comment on above: Performed By: #### L [id number] ####[facility] ([facility])[address] [place] [address] GLOMERULAR FILTRATION RATE ML/MIN/1.73 SQ M.PREDICTED 104.0 mL/min/1.73m*2 Normal >60.0 [facility] Comment on above: Result Comment: The [facility]???s estimated glomerular filtration rate (eGFR) will no [...] of individuals. Performed By: #### L [id number] ####[facility] ([facility])[address] [place] [address] Glucose [Mass/Vol] 112 mg/dL High 70-100 [facility] Comment on above: Performed By: #### L [id number] ####[facility] ([facility])[address] [place] [address] Potassium [Moles/Vol] 3.4 mmol/L Low 3.5-5.1 [facility] Comment on above: Performed By: #### L [id number] ####[facility] ([facility])[address] [place] [address] Sodium [Moles/Vol] 141 mmol/L Normal 136-145 [facility] Comment on above: Performed By: #### L [id number] ####[facility] ([facility])[address] [place] [address] Urea nitrogen [Mass/Vol] 14 mg/dL Normal 7-25 [facility] Comment on above: Performed By: #### L [id number] ####[facility] ([facility])[address] [place] [address] UREA NITROGEN/CREATININ E (MASS RATIO) IN SER/PLAS 23.0 Normal [facility] Comment on above: Performed By: #### L [id number] ####[facility] ([facility])[address] [place] [address] CBCon 04-26-2023 Erythrocyte distribution width (RBC) [Ratio] 13.9 % Normal 11.5-15.0 [facility] Comment on above: Performed By: #### L [id number] ####[facility] ([facility])[address] [place] [address] ERYTHROCYTE MEAN CORPUSCULAR HEMOGLOBIN CONCENTRATION (G/DL) BY AUTOMATED 33.7 g/dL Normal 32.0-35.0 [facility] Comment on above: Performed By: #### L [id number] ####[facility] ([facility])[address] [place] [address] Hematocrit (Bld) [Volume fraction] 24.3 % Low 39.0-55.0 [facility] Comment on above: Performed By: #### L [id number] ####[facility] ([facility])[address] [place] [address] Hemoglobin (Bld) [Mass/Vol] 8.2 g/dL Low 13.0-17.0 [facility] Comment on above: Performed By: #### L [id number] ####[facility] ([facility])[address] [place] [address] IMMATURE PLATELET FRACTION % 4.3 % Normal 0.8-6.3 [facility] Comment on above: Performed By: #### L [id number] ####[facility] ([facility])[address] [place] [address] MCH (RBC) [Entitic mass] 30.4 pg Normal 27.0-33.0 [facility] Comment on above: Performed By: #### L [id number] ####[facility] ([facility])[address] [place] [address] MCV (RBC) [Entitic vol] 90.0 fL Normal 82.0-98.0 [facility] Comment on above: Performed By: #### L [id number] ####[facility] ([facility])[address] [place] [address] PLATELETS (10*3/UL) IN BLOOD AUTOMATED COUNT 71 10*3/uL Low 150-400 [facility] Comment on above: Performed By: #### L [id number] ####[facility] ([facility])[address] [place] [address] RBC (Bld) [#/Vol] 2.70 10*6/uL Low 4.20-5.70 [facility] Comment on above: Performed By: #### L [id number] ####[facility] ([facility])[address] [place] [address] WBC (Bld) [#/Vol] 7.74 10*3/uL Normal 4.00-10.60 [facility] Comment on above: Performed By: #### L [id number] ####[facility] ([facility])[address] [place] [address] CO-OXIMETRYon 04-26-2023 CARBOXYHEMOGLOBIN/ HEMOGLOBIN TOTAL % IN BLOOD 1.4 % Normal [facility] Comment on above: Performed By: #### L [id number] ####[facility] [id number] [facility] [place] [address] [place] Hemoglobin (Bld) [Mass/Vol] 8.5 g/dL Normal [facility] Comment on above: Performed By: #### L [id number] ####[facility] [id number] [facility] [place] [address] [place] METHEMOGLOBIN/100 IN BLOOD 0.3 % Normal 0.0-1.5 [facility] Comment on above: Performed By: #### L [id number] ####[facility] [id number] [facility] [place] [address] [place] Oxygen saturation in Blood 57.1 % Normal [facility] Comment on above: Performed By: #### L [id number] ####[facility] [id number] [facility] [place] [address] [place] OXYGENATED HEMOGLOBIN IN BLOOD 56.1 % Normal [facility] Comment on above: Performed By: #### L [id number] ####[facility] [id number] [facility] [place] [address] [place] IRON AND TIBCon 04-26-2023 IRON (UG/DL) IN SER/PLAS 16 ug/dL Low 50-212 [facility] Comment on above: Performed By: #### L [id number] ####[facility] ([facility])[address] [place] [address] IRON BINDING CAPACITY (UG/DL) IN SER/PLAS 143 ug/dL Low 250-450 [facility] Comment on above: Performed By: #### L [id number] ####[facility] ([facility])[address] [place] [address] IRON BINDING CAPACITY.UNSATURAT ED (UG/DL) IN SER/PLAS 127.0 ug/dL Low 155.0-355.0 [facility] Comment on above: Performed By: #### L [id number] ####[facility] ([facility])[address] [place] [address] IRON SATURATION (%) IN SER/PLAS 11 % Low 20-50 [facility] Comment on above: Performed By: #### L [id number] ####[facility] ([facility])[address] [place] [address] LACTIC ACID, PLASMAon 2022 LACTATE (MMOL/L) IN SER/PLAS 0.6 mmol/L Normal 0.5-2.2 [facility] Comment on above: Performed By: #### L [id number] ####[facility] ([facility])[address] [place] [address] MAGNESIUMon 04-26-2023 Magnesium [Mass/Vol] 1.6 mg/dL Low 1.9-2.7 [facility] Comment on above: Performed By: #### L [id number] ####[facility] ([facility])[address] [place] [address] Magnesium [Mass/Vol] 1.7 mg/dL Low 1.9-2.7 [facility] Comment on above: Performed By: #### L [id number] ####[facility] ([facility] [place] [address] PHOSPHORUSon 04-26-2023 Magnesium [Mass/Vol] 3.4 mg/dL Normal 2.5-5.0 [facility] Comment on above: Performed By: #### L [id number] ####[facility] ([facility])[address] [place] [address] Magnesium [Mass/Vol] 3.7 mg/dL Normal 2.5-5.0 [facility] Comment on above: Performed By: #### L [id number] ####[facility] ([facility] [place] [address] POCT GLUCOSE METER UNSOLICIT ED RESULTSon 04-26-2023 Glucose [Mass/Vol] 134 mg/dL High 70-105 [facility] Comment on above: Order Comment: Waive d Testing in the ED is performed under the ED CLIA certificate #[id number]. Result Comment: cfit ch4 Performed By: #### L [id number] ####[facility] ([facility])[address] [place] [address] Glucose [Mass/Vol] 129 mg/dL High 70-105 [facility] Comment on above: Order Comment: Waive d Testing in the ED is performed under the ED CLIA certificate #[id number]. Result Comment: cfit ch4 Performed By: #### L [id number] ####[facility] ([facility])[address] [place] [address] Glucose [Mass/Vol] 121 mg/dL High 70-105 [facility] Comment on above: Order Comment: Waive d Testing in the ED is performed under the ED CLIA certificate #[id number]. Result Comment: than sen2 Performed By: #### L [id number] ####[facility] ([facility])[address] [place] [address] Glucose [Mass/Vol] 113 mg/dL High 70-105 [facility] Comment on above: Order Comment: Waive d Testing in the ED is performed under the ED CLIA certificate #[id number]. Result Comment: than sen2 Performed By: #### L [id number] ####[facility] ([facility])[address] [place] [address] PREALBUMINon 04-26-2023 Prealbumin [Mass/Vol] 6.4 mg/dL Normal [facility] Comment on above: Performed By: #### L [id number] ####[facility] ([facility])[address] [place] [address] TRANSFERRINon 04-26-2023 Magnesium [Mass/Vol] 82 mg/dL Low 168-348 [facility] Comment on above: Performed By: #### L [id number] ####[facility] ([facility])[address] [place] [address] 30on 04-25-2023 30 Normal [facility] AMMONIAon 04-25-2023 AMMONIA (UMOL/L) IN PLASMA 39 umol/L Normal 18-72 [facility] Comment on above: Performed By: #### L [id number] ####[facility] ([facility] [place] [address] APTTon 04-25-2023 ACTIVATED PARTIAL THROMBOPLASTIN TIME IN PPP BY COAGULATION ASSAY 37.2 Seconds High 25.0-35.0 [facility] Comment on above: Result Comment: Clin ical significance of the APTT is questionable in the presence of heparin. Performed By: #### L [id number] ####[facility] ([facility])[address] [place] [address] BASIC METABOLIC PANELon Anion gap [Moles/Vol] 9 mmol/L Normal 7-20 [facility] Comment on above: Performed By: #### L [id number] ####[facility] ([facility])[address] [place] [address] Calcium [Mass/Vol] 8.2 mg/dL Low 8.6-10.3 [facility] Comment on above: Performed By: #### L [id number] ####[facility] ([facility])[address] [place] [address] Chloride [Moles/Vol] 111 mmol/L High 98-107 [facility] Comment on above: Performed By: #### L [id number] ####[facility] ([facility]ER)[address] [place] [address] CO2 [Moles/Vol] 24 mmol/L Normal 21-31 [facility] Comment on above: Performed By: #### L [id number] ####[facility] ([facility])[address] [place] [address] Creatinine [Mass/Vol] 0.71 mg/dL Normal 0.70-1.30 [facility] Comment on above: Performed By: #### L [id number] ####[facility] ([facility])[address] [place] [address] GLOMERULAR FILTRATION RATE ML/MIN/1.73 SQ M.PREDICTED 99.3 mL/min/1.73m*2 Normal >60.0 [facility] Comment on above: Result Comment: The [facility]???s estimated glomerular filtration rate (eGFR) will no [...] of individuals. Performed By: #### L [id number] ####[facility] ([facility])[address] [place] [address] Glucose [Mass/Vol] 124 mg/dL High 70-100 [facility] Comment on above: Performed By: #### L [id number] ####[facility] ([facility])[address] [place] [address] Potassium [Moles/Vol] 3.9 mmol/L Normal 3.5-5.1 [facility] Comment on above: Performed By: #### L [id number] ####[facility] ([facility])[address] [place] [address] Sodium [Moles/Vol] 140 mmol/L Normal 136-145 [facility] Comment on above: Performed By: #### L [id number] ####[facility] ([facility])[address] [place] [address] Urea nitrogen [Mass/Vol] 17 mg/dL Normal 7-25 [facility] Comment on above: Performed By: #### L [id number] ####[facility] ([facility])[address] [place] [address] UREA NITROGEN/CREATININ E (MASS RATIO) IN SER/PLAS 23.9 Normal [facility] Comment on above: Performed By: #### L [id number] ####[facility] ([facility])[address] [place] [address] CBCon 04-25-2023 Erythrocyte distribution width (RBC) [Ratio] 14.0 % Normal 11.5-15.0 [facility] Comment on above: Performed By: #### L [id number] ####[facility] ([facility])[address] [place] [address] ERYTHROCYTE MEAN CORPUSCULAR HEMOGLOBIN CONCENTRATION (G/DL) BY AUTOMATED 34.1 g/dL Normal 32.0-35.0 [facility] Comment on above: Performed By: #### L [id number] ####[facility] ([facility])[address] [place] [address] Hematocrit (Bld) [Volume fraction] 24.9 % Low 39.0-55.0 [facility] Comment on above: Performed By: #### L [id number] ####[facility] ([facility])[address] [place] [address] Hemoglobin (Bld) [Mass/Vol] 8.5 g/dL Low 13.0-17.0 [facility] Comment on above: Performed By: #### L [id number] ####[facility] ([facility])[address] [place] [address] IMMATURE PLATELET FRACTION % 5.1 % Normal 0.8-6.3 [facility] Comment on above: Performed By: #### L [id number] ####[facility] ([facility])[address] [place] [address] MCH (RBC) [Entitic mass] 30.7 pg Normal 27.0-33.0 [facility] Comment on above: Performed By: #### L [id number] ####[facility] ([facility]ER)[address] [place] [address] MCV (RBC) [Entitic vol] 89.9 fL Normal 82.0-98.0 [facility] Comment on above: Performed By: #### L [id number] ####[facility] ([facility])[address] [place] [address] PLATELETS (10*3/UL) IN BLOOD AUTOMATED COUNT 55 10*3/uL Low 150-400 [facility] Comment on above: Performed By: #### L [id number] ####[facility] ([facility])[address] [place] [address] RBC (Bld) [#/Vol] 2.77 10*6/uL Low 4.20-5.70 [facility] Comment on above: Performed By: #### L [id number] ####[facility] ([facility])[address] [place] [address] WBC (Bld) [#/Vol] 9.29 10*3/uL Normal 4.00-10.60 [facility] Comment on above: Performed By: #### L [id number] ####[facility] ([facility])[address] [place] [address] Erythrocyte distribution width (RBC) [Ratio] 14.6 % Normal 11.5-15.0 [facility] Comment on above: Performed By: #### L [id number] ####[facility] ([facility])[address] [place] [address] ERYTHROCYTE MEAN CORPUSCULAR HEMOGLOBIN CONCENTRATION (G/DL) BY AUTOMATED 34.1 g/dL Normal 32.0-35.0 [facility] Comment on above: Performed By: #### L [id number] ####[facility] ([facility])[address] [place] [address] Hematocrit (Bld) [Volume fraction] 25.5 % Low 39.0-55.0 [facility] Comment on above: Performed By: #### L [id number] ####[facility] ([facility]ER)[address] [place] [address] Hemoglobin (Bld) [Mass/Vol] 8.7 g/dL Low 13.0-17.0 [facility] Comment on above: Performed By: #### L [id number] ####[facility] ([facility] [place] [address] IMMATURE PLATELET FRACTION % 5.5 % Normal 0.8-6.3 [facility] Comment on above: Performed By: #### L [id number] ####[facility] ([facility])[address] [place] [address] MCH (RBC) [Entitic mass] 31.0 pg Normal 27.0-33.0 [facility] Comment on above: Performed By: #### L [id number] ####[facility] ([facility])[address] [place] [address] MCV (RBC) [Entitic vol] 90.7 fL Normal 82.0-98.0 [facility] Comment on above: Performed By: #### L [id number] ####[facility] ([facility])[address] [place] [address] PLATELETS (10*3/UL) IN BLOOD AUTOMATED COUNT 56 10*3/uL Low 150-400 [facility] Comment on above: Result Comment: P=69 , 1D Performed By: #### L [id number] ####[facility] ([facility])[address] [place] [address] RBC (Bld) [#/Vol] 2.81 10*6/uL Low 4.20-5.70 [facility] Comment on above: Performed By: #### L [id number] ####[facility] ([facility])[address] [place] [address] WBC (Bld) [#/Vol] 10.33 10*3/uL Normal 4.00-10.60 [facility] Comment on above: Performed By: #### L [id number] ####[facility] ([facility] [place] [address] CO-OXIMETRYon 04-25-2023 CARBOXYHEMOGLOBIN/ HEMOGLOBIN TOTAL % IN BLOOD 0.8 % Normal [facility] Comment on above: Performed By: #### L [id number] ####[facility] [id number] [place] [address] [place] Hemoglobin (Bld) [Mass/Vol] 7.8 g/dL Normal [facility] Comment on above: Performed By: #### L [id number] ####[facility] RES[facility] [id number] [place] [address] [place] METHEMOGLOBIN/100 IN BLOOD 1.1 % Normal 0.0-1.5 [facility] Comment on above: Performed By: #### L [id number] ####[facility] RESP[facility] [id number] [place] [address] [place] Oxygen saturation in Blood 70.2 % Normal [facility] Comment on above: Performed By: #### L [id number] ####[facility] RES[facility] [id number] [place] [address] [place] OXYGENATED HEMOGLOBIN IN BLOOD 68.8 % Normal [facility] Comment on above: Performed By: #### L [id number] ####[facility]PIRAT[facility] [id number] [place] [address] [place] HEPATIC FUNCTION PANELon Albumin [Mass/Vol] 3.3 g/dL Low 3.5-5.7 [facility] Comment on above: Performed By: #### L [id number] ####[facility]OSPITAL LAB (BEAKER)[address] [place] [address] ALP [Catalytic activity/Vol] 49 U/L Normal 34-104 [facility] Comment on above: Performed By: #### L [id number] ####[facility]OSPITAL LAB (BEAKER)[address] [place] [address] ALT [Catalytic activity/Vol] 60 U/L High 7-52 [facility] Comment on above: Performed By: #### L [id number] ####[facility]OSPITAL LAB (BEAKER)[address] [place] [address] AST [Catalytic activity/Vol] 127 U/L High 13-39 [facility] Comment on above: Performed By: #### L [id number] ####[facility] (BEAKER)[address] [place] [address] Bilirubin [Mass/Vol] 0.5 mg/dL Normal 0.3-1.0 [facility] Comment on above: Performed By: #### L [id number] ####[facility] ([facility])[address] [place] [address] Magnesium [Mass/Vol] 0.2 mg/dL Normal 0-0.2 [facility] Comment on above: Performed By: #### L [id number] ####[facility] ([facility])[address] [place] [address] Protein [Mass/Vol] 4.8 g/dL Low 6.0-8.3 [facility] Comment on above: Performed By: #### L [id number] ####[facility] ([facility])[address], [place] [address] LACTIC ACID WITH 4 HOUR REFL EXon 04-25-2023 LACTATE (MMOL/L) IN SER/PLAS 1.4 mmol/L Normal 0.5-2.2 [facility] Comment on above: Performed By: #### L [id number] ####[facility] ([facility])[address] [place] [address] MAGNESIUMon 04-25-2023 Magnesium [Mass/Vol] 1.7 mg/dL Low 1.9-2.7 [facility] Comment on above: Performed By: #### L [id number] ####[facility] ([facility])[address] [place] [address] NURSNOTEon 04-25-2023 NURSNOTE Normal [facility] NURSNOTE Normal [facility] PHOSPHORUSon 04-25-2023 Magnesium [Mass/Vol] 2.3 mg/dL Low 2.5-5.0 [facility] Comment on above: Performed By: #### L [id number] ####[facility] ([facility])[address], [place] [address] POCT GLUCOSE METER UNSOLICIT ED RESULTSon 04-25-2023 Glucose [Mass/Vol] 106 mg/dL High 70-105 [facility] Comment on above: Order Comment: Waive d Testing in the ED is performed under the ED CLIA certificate #[id number]. Result Comment: [email or web address] [email or web address] Performed By: #### L [id number] ####[facility] LAB (BEYnsect)[address] [facility] [place] [address] Glucose [Mass/Vol] 128 mg/dL High 70-105 [facility] Comment on above: Order Comment: Waive d Testing in the ED is performed under the ED CLIA certificate #[id number]. Result Comment: [email or web address] Performed By: #### L [id number] ####[facility] LAB ([employer])[address] [place] [address] PROTIME-INRon 04-25-2023 INR IN PPP BY COAGULATION ASSAY 1.34 High 0.90-1.10 [facility] Comment on above: Result Comment: ACCC P [...] CHEST 1995;108:231S-246S. Performed By: #### L [id number] ####[facility] LAB (BEYnsect)[address] [facility] [place] [address] PROTHROMBIN TIME (PT) IN PPP BY COAGULATION ASSAY 16.6 Seconds High 12.3-14.8 [facility] Comment on above: Performed By: #### L [id number] ####[facility] ([employer])[address] [place] [address] INR IN PPP BY COAGULATION ASSAY 1.39 High 0.90-1.10 [facility] Comment on above: Result Comment: ACCC P [...] CHEST 1995;108:231S-246S. Performed By: #### L [id number] ####[facility] LAB (BEYnsect)[address] [place] [address] PROTHROMBIN TIME (PT) IN PPP BY COAGULATION ASSAY 17.1 Seconds High 12.3-14.8 [facility] Comment on above: Performed By: #### L [id number] ####[facility] LAB (BEYnsect)[address] [place] [address] 30on 04-24-2023 30 Normal [facility] 30 Normal [facility] 30 Normal [facility] ARTERIAL BLOOD GAS WITH IONI ZED CALCIUMon 04-24-2023 Base excess Calc (Bld) [Moles/Vol] -2.0000 mmol/L Normal -2.0-3.0 [facility] Comment on above: Performed By: #### L [id number] ####[facility] [id number] [place] [address] [facility] CALCIUM IONIZED (MMOL/L) IN BLOOD 1.06 mmol/L Low 1.15-1.33 [facility] Comment on above: Performed By: #### L [id number] ####[facility] [id number] [place] [address] [facility] CO2 (Bld) [Partial pressure] 31 mm[Hg] Low 35-48 [facility] Comment on above: Performed By: #### L [id number] ####[facility] [id number] [place] [address] [facility] HCO3 (Bld) [Moles/Vol] 21.5 mmol/L Normal 21.0-28.0 [facility] Comment on above: Performed By: #### L [id number] ####[facility] RESPIR[facility] [id number] [place] [address] [facility] Oxygen (Bld) [Partial pressure] 118 mm[Hg] High 83-100 [facility] Comment on above: Performed By: #### L [id number] ####[facility] [id number] [place] [address] [facility] OXYGEN SATURATION (%) IN ARTERIAL BLOOD 99.4 % High 94.0-98.0 [facility] Comment on above: Performed By: #### L [id number] ####[facility] [id number] [place] [address] [facility] pH (Bld) 7.45 [pH] Normal 7.35-7.45 [facility] Comment on above: Performed By: #### L [id number] ####[facility] [id number] [place] [address] [facility] SOURCE OF OXYGEN AC/VC Normal [facility] Comment on above: Performed By: #### L [id number] ####[facility] RESPIR[facility] [id number] [place] [address] [facility] TIDAL VOLUME (VT) CC 8 Normal [facility] Comment on above: Performed By: #### L [id number] ####[facility] RESPIRAT[facility] [id number] [place] [address] [place] BASIC METABOLIC PANELon 11-0 Anion gap [Moles/Vol] 10 mmol/L Normal 7-20 [facility] Comment on above: Performed By: #### L [id number] ####[facility] HOSPITAL LAB (BEAKER)[address] [place] [address] Calcium [Mass/Vol] 8.5 mg/dL Low 8.6-10.3 [facility] Comment on above: Performed By: #### L [id number] ####[facility] LAB (BEAKER)[address] [place] [address] Chloride [Moles/Vol] 113 mmol/L High 98-107 [facility] Comment on above: Performed By: #### L [id number] ####[facility] (BEAKER)[address] [place] [address] CO2 [Moles/Vol] 24 mmol/L Normal 21-31 [facility] Comment on above: Performed By: #### L [id number] ####[facility] LAB (BEAKER)[address] [place] [address] Creatinine [Mass/Vol] 0.83 mg/dL Normal 0.70-1.30 [facility] Comment on above: Performed By: #### L [id number] ####[facility] LAB (BEAKER)[address] [place] [address] GLOMERULAR FILTRATION RATE ML/MIN/1.73 SQ M.PREDICTED 94.7 mL/min/1.73m*2 Normal >60.0 [facility] Comment on above: Result Comment: The [facility]???s estimated glomerular filtration rate (eGFR) will no [...] of individuals. Performed By: #### L [id number] ####[facility] ([facility])[address] [place] [address] Glucose [Mass/Vol] 208 mg/dL High 70-100 [facility] Comment on above: Performed By: #### L [id number] ####[facility] ([facility])[address] [place] [address] Potassium [Moles/Vol] 3.6 mmol/L Normal 3.5-5.1 [facility] Comment on above: Performed By: #### L [id number] ####[facility] ([facility])[address] [place] [address] Sodium [Moles/Vol] 143 mmol/L Normal 136-145 [facility] Comment on above: Performed By: #### L [id number] ####[facility] ([facility])[address] [facility] [place] [address] Urea nitrogen [Mass/Vol] 19 mg/dL Normal 7-25 [facility] Comment on above: Performed By: #### L [id number] ####[facility] ([facility])[address] [place] [address] UREA NITROGEN/CREATININ E (MASS RATIO) IN SER/PLAS 22.9 Normal [facility] Comment on above: Performed By: #### L [id number] ####[facility] LAB ([facility])[address] [place] [address] CBCon 04-24-2023 Erythrocyte distribution width (RBC) [Ratio] 13.9 % Normal 11.5-15.0 [facility] Comment on above: Performed By: #### L [id number] ####[facility] ([facility])[address] [facility] [place] [address] ERYTHROCYTE MEAN CORPUSCULAR HEMOGLOBIN CONCENTRATION (G/DL) BY AUTOMATED 34.3 g/dL Normal 32.0-35.0 [facility] Comment on above: Performed By: #### L [id number] ####[facility] HOSPITAL LAB (BEAKER)[address] [place] [address] Hematocrit (Bld) [Volume fraction] 28.0 % Low 39.0-55.0 [facility] Comment on above: Performed By: #### L [id number] ####[facility] LAB (BEAKER)[address] [place] [address] Hemoglobin (Bld) [Mass/Vol] 9.6 g/dL Low 13.0-17.0 [facility] Comment on above: Performed By: #### L [id number] ####[facility] LAB (BEAKER)[address] [place] [address] IMMATURE PLATELET FRACTION % 5.1 % Normal 0.8-6.3 [facility] Comment on above: Performed By: #### L [id number] ####[facility] LAB (BEAKER)[address] [place] [address] MCH (RBC) [Entitic mass] 30.7 pg Normal 27.0-33.0 [facility] Comment on above: Performed By: #### L [id number] ####[facility] LAB (BEAKER)[address] [place] [address] MCV (RBC) [Entitic vol] 89.5 fL Normal 82.0-98.0 [facility] Comment on above: Performed By: #### L [id number] ####[facility] LAB (BEAKER)[address] [place] [address] PLATELETS (10*3/UL) IN BLOOD AUTOMATED COUNT 69 10*3/uL Low 150-400 [facility] Comment on above: Performed By: #### L [id number] ####[facility] LAB (BEAKER)[address] [place] [address] RBC (Bld) [#/Vol] 3.13 10*6/uL Low 4.20-5.70 [facility] Comment on above: Performed By: #### L [id number] ####[facility] LAB (BEAKER)[address] [place] [address] WBC (Bld) [#/Vol] 16.62 10*3/uL High 4.00-10.60 [facility] Comment on above: Performed By: #### L [id number] ####[facility] HOSPITAL LAB (BEAKER)[address] [place] [address] CO-OXIMETRYon 04-24-2023 CARBOXYHEMOGLOBIN/ HEMOGLOBIN TOTAL % IN BLOOD 1.2 % Normal [facility] Comment on above: Performed By: #### L [id number] ####[facility] RESPIR[facility]ORY [id number] [place] [address] [facility] Hemoglobin (Bld) [Mass/Vol] 9.6 g/dL Normal [facility] Comment on above: Performed By: #### L [id number] ####[facility] RESPIRATORY [id number] [place] [address] [place] METHEMOGLOBIN/100 IN BLOOD 0.4 % Normal 0.0-1.5 [facility] Comment on above: Performed By: #### L [id number] ####[facility] RESPIRATORY [id number] [place] [address] [place] Oxygen saturation in Blood 67.5 % Normal [facility] Comment on above: Performed By: #### L [id number] ####[facility] RESPIR[facility] [id number] [place] [address] [place] OXYGENATED HEMOGLOBIN IN BLOOD 66.4 % Normal [facility] Comment on above: Performed By: #### L [id number] ####[facility] RESPIRATORY [id number] [place] [address] [facility] HEPATIC FUNCTION PANELon Albumin [Mass/Vol] 3.7 g/dL Normal 3.5-5.7 [facility] Comment on above: Performed By: #### L [id number] ####[facility] LAB (BEAKER)[address] [place] [address] ALP [Catalytic activity/Vol] 39 U/L Normal 34-104 [facility] Comment on above: Performed By: #### L [id number] ####[facility] [place] [address] ALT [Catalytic activity/Vol] 82 U/L High 7-52 [facility] Comment on above: Performed By: #### L [id number] ####[facility] ([facility])[address] [place] [address] AST [Catalytic activity/Vol] 229 U/L High 13-39 [facility] Comment on above: Performed By: #### L [id number] ####[facility] ([facility])[address] [place] [address] Bilirubin [Mass/Vol] 0.5 mg/dL Normal 0.3-1.0 [facility] Comment on above: Performed By: #### L [id number] ####[facility] ([facility])[address] [place] [address] Magnesium [Mass/Vol] 0.2 mg/dL Normal 0-0.2 [facility] Comment on above: Performed By: #### L [id number] ####[facility] ([facility])[address] [place] [address] Protein [Mass/Vol] 4.9 g/dL Low 6.0-8.3 [facility] Comment on above: Performed By: #### L [id number] ####[facility] ([facility])[address] [place] [address] LACTIC ACID WITH 4 HOUR REFL EXon 04-24-2023 LACTATE (MMOL/L) IN SER/PLAS 1.3 mmol/L Normal 0.5-2.2 [facility] Comment on above: Performed By: #### L [id number] ####[facility] ([facility])[address] [place] [address] Performed By: #### L [id number] ####[facility] ([facility])[address] [place] [address] LACTATE (MMOL/L) IN SER/PLAS 4.0 mmol/L Critically high 0.5-2.2 [facility] Comment on above: Result Comment: Prev ious result verified on 04/23/2023 2300 on specimen/case [id number] called with component Lactate blood venous for procedure Lactic acid, venous, whole blood with value 9.1 mmol/L. Performed By: #### L [id number] ####[facility] ([facility])[address] [place] [address] MAGNESIUMon 04-24-2023 Magnesium [Mass/Vol] 1.8 mg/dL Low 1.9-2.7 [facility] Comment on above: Performed By: #### L [id number] ####[facility] ([facility])[address] [place] [address] POCT GLUCOSE METER UNSOLICIT ED RESULTSon 04-24-2023 Glucose [Mass/Vol] 129 mg/dL High 70-105 [facility] Comment on above: Order Comment: Waive d Testing in the ED is performed under the ED CLIA certificate #[id number]. Result Comment: [email or web address] [email or web address] Performed By: #### L [id number] ####[facility] LAB ([facility])[address] [employer] [place] [place] [address] Glucose [Mass/Vol] 116 mg/dL High 70-105 [facility] Comment on above: Order Comment: Waive d Testing in the ED is performed under the ED CLIA certificate #[id number]. Result Comment: [email or web address] [email or web address] Performed By: #### L [id number] ####[facility] LAB ([facility])[address] [employer] [place] [address] Glucose [Mass/Vol] 106 mg/dL High 70-105 [facility] Comment on above: Order Comment: Waive d Testing in the ED is performed under the ED CLIA certificate #[id number]. Result Comment: nhay man Performed By: #### L [id number] ####[facility] ([facility])[address] [place] [address] Glucose [Mass/Vol] 113 mg/dL High 70-105 [facility] Comment on above: Order Comment: Waive d Testing in the ED is performed under the ED CLIA certificate #[id number]. Result Comment: nhay man Performed By: #### L [id number] ####[facility] HOSPITAL LAB (BEAKER)[address] [place] [address] Glucose [Mass/Vol] 118 mg/dL High 70-105 [facility] Comment on above: Order Comment: Waive d Testing in the ED is performed under the ED CLIA certificate #[id number]. Result Comment: nhay man Performed By: #### L [id number] ####[facility] HOSPITAL LAB (AKER)[address] [place] [address] Glucose [Mass/Vol] 75 mg/dL Normal 70-105 [facility] Comment on above: Order Comment: Waive d Testing in the ED is performed under the ED CLIA certificate #[id number]. Result Comment: nhay man Performed By: #### L [id number] ####[facility] ([facility])[address] [place] [address] Glucose [Mass/Vol] 163 mg/dL High 70-105 [facility] Comment on above: Order Comment: Waive d Testing in the ED is performed under the ED CLIA certificate #[id number]. Result Comment: than sen2 Performed By: #### L [id number] ####[facility] ([facility])[address] [place] [address] Glucose [Mass/Vol] 176 mg/dL High 70-105 [facility] Comment on above: Order Comment: Waive d Testing in the ED is performed under the ED CLIA certificate #[id number]. Result Comment: than sen2 Performed By: #### L [id number] ####[facility] HOSPITAL LAB (BEAKER)[address] [place] [address] Glucose [Mass/Vol] 147 mg/dL High 70-105 [facility] Comment on above: Order Comment: Waive d Testing in the ED is performed under the ED CLIA certificate #[id number]. Result Comment: [email or web address] Performed By: #### L [id number] ####[facility] HOSPITAL LAB (BEAKER)[address] [place] [address] Glucose [Mass/Vol] 199 mg/dL High 70-105 [facility] Comment on above: Order Comment: Waive d Testing in the ED is performed under the ED CLIA certificate #[id number]. Result Comment: [email or web address] [email or web address] Performed By: #### L [id number] ####[facility]OSP[facility] LAB (BEAKER)[address] [place] [address] Glucose [Mass/Vol] 202 mg/dL High 70-105 [facility] Comment on above: Order Comment: Waive d Testing in the ED is performed under the ED CLIA certificate #[id number]. Result Comment: than sen2 Performed By: #### L [id number] ####[facility] ([facility])[address] [place] [address] Glucose [Mass/Vol] 233 mg/dL High 70-105 [facility] Comment on above: Order Comment: Waive d Testing in the ED is performed under the ED CLIA certificate #[id number]. Result Comment: than sen2 Performed By: #### L [id number] ####[facility] HOSPITAL LAB (BEYnsect)[address] [place] [address] Glucose [Mass/Vol] 253 mg/dL High 70-105 [facility] Comment on above: Order Comment: Waive d Testing in the ED is performed under the ED CLIA certificate #[id number]. Result Comment: kste [email or web address] Performed By: #### L [id number] ####[facility] HOSPITAL LAB (BEYnsect)[address] [place] [address] Glucose [Mass/Vol] 279 mg/dL High 70-105 [facility] Comment on above: Order Comment: Waive d Testing in the ED is performed under the ED CLIA certificate #[id number]. Result Comment: than sen2 Performed By: #### L [id number] ####[facility] HOSPITAL LAB (BEAKER)[address] [place] [address] TROPONIN Ion 04-24-2023 Troponin I.cardiac [Mass/Vol] 34.92 ng/mL Critically high 0.00-0.04 [facility] Comment on above: Result Comment: Prev ious result verified on 04/23/2023 2259 on specimen/case [id number] called with component Troponin I for procedure Troponin I with value 22.65 ng/mL. Performed By: #### L [id number] ####[facility] ([facility])[address] [place] [address] 30on 04-23-2023 30 Normal [facility] 30 Normal [facility] AMYLASEon 04-23-2023 Amylase [Catalytic activity/Vol] 86 U/L Normal 29-103 [facility] Comment on above: Performed By: #### L [id number] ####[facility] ([facility])[address] [place] [address] APTTon 04-23-2023 ACTIVATED PARTIAL THROMBOPLASTIN TIME IN PPP BY COAGULATION ASSAY 45.1 Seconds High 25.0-35.0 [facility] Comment on above: Result Comment: Clin ical significance of the APTT is questionable in the presence of heparin. Performed By: #### L [id number] ####[facility] ([facility])[address] [place] [address] ACTIVATED PARTIAL THROMBOPLASTIN TIME IN PPP BY COAGULATION ASSAY 49.0 Seconds High 25.0-35.0 [facility] Comment on above: Result Comment: Clin ical significance of the APTT is questionable in the presence of heparin. Performed By: #### L [id number] ####[facility] ([facility])[address] [place] [address] ARTERIAL BLOOD GAS WITH IONI ZED CALCIUMon 04-23-2023 Base excess Calc (Bld) [Moles/Vol] -16.06086 mmol/L Low -2.0-3.0 [facility] Comment on above: Performed By: #### L [id number] ####[facility] RESPIRAT[facility] [id number] [place] [address] [place] CALCIUM IONIZED (MMOL/L) IN BLOOD 1.15 mmol/L Normal 1.15-1.33 [facility] Comment on above: Performed By: #### L [id number] ####[facility] RESPIR[facility] [id number] [place] [address] [facility] CO2 (Bld) [Partial pressure] 20 mm[Hg] Invalid Interpretation Code 35-48 [facility] Comment on above: Performed By: #### L [id number] ####[facility] RESPIRAT[facility] [id number] [facility] [place] [address] [facility] HCO3 (Bld) [Moles/Vol] 8.8 mmol/L Low 21.0-28.0 [facility] Comment on above: Performed By: #### L [id number] ####[facility] RESPIR[facility] [id number] [facility] [place] [address] [facility] LPM 2 Normal [facility] Comment on above: Performed By: #### L [id number] ####[facility] RESPIRAT[facility] [id number] [place] [address] [facility] Oxygen (Bld) [Partial pressure] 67 mm[Hg] Low 83-100 [facility] Comment on above: Performed By: #### L [id number] ####[facility] RESPIRAT[facility] [id number] [place] [address] [facility] OXYGEN SATURATION (%) IN ARTERIAL BLOOD 93.6 % Low 94.0-98.0 [facility] Comment on above: Performed By: #### L [id number] ####[facility] RESPIRAT[facility] [id number] [place] [address] [facility] pH (Bld) 7.25 [pH] Low 7.35-7.45 [facility] Comment on above: Performed By: #### L [id number] ####[facility] RESPIRATORY [id number] [place] [address] [facility] SOURCE OF OXYGEN Nasal cannula Normal [facility] Comment on above: Performed By: #### L [id number] ####[facility] RESPIR[facility] [id number] [place] [address] [facility] Base excess Calc (Bld) [Moles/Vol] -15.45083 mmol/L Low -2.0-3.0 [facility] Comment on above: Order Comment: On ar rival to CVU Performed By: #### L [id number] ####[facility] RESP[facility] [id number] [place] [address] [place] CALCIUM IONIZED (MMOL/L) IN BLOOD 1.16 mmol/L Normal 1.15-1.33 [facility] Comment on above: Order Comment: On ar rival to CVU Performed By: #### L [id number] ####[facility] RESP[facility] [id number] [place] [address] [place] CO2 (Bld) [Partial pressure] 21 mm[Hg] Invalid Interpretation Code 35-48 [facility] Comment on above: Order Comment: On ar rival to CVU Performed By: #### L [id number] ####[facility] RESP[facility] [id number] [place] [address] [facility] HCO3 (Bld) [Moles/Vol] 9.6 mmol/L Low 21.0-28.0 [facility] Comment on above: Order Comment: On ar rival to CVU Performed By: #### L [id number] ####[facility] RES[facility] [id number] [facility] [place] [address] [place] Oxygen (Bld) [Partial pressure] 63 mm[Hg] Low 83-100 [facility] Comment on above: Order Comment: On ar rival to CVU Performed By: #### L [id number] ####[facility] RESPIRATORY [id number] [place] [address] [place] OXYGEN SATURATION (%) IN ARTERIAL BLOOD 92.2 % Low 94.0-98.0 [facility] Comment on above: Order Comment: On ar rival to CVU Performed By: #### L [id number] ####[facility] RESPIR[facility] [id number] [facility] [place] [address] [place] pH (Bld) 7.27 [pH] Low 7.35-7.45 [facility] Comment on above: Order Comment: On ar rival to CVU Performed By: #### L [id number] ####[facility] RESPIRATORY [id number] [place] [address] [facility] SOURCE OF OXYGEN Nasal [facility]ula [facility] Comment on above: Order Comment: On ar rival to CVU Performed By: #### L [id number] ####[facility] RESPIRATORY [id number] [place] [address] [place] Anesthesiaon 04-23-2023 Anesthesia [id number] Gui Ortiz 1955 M Date Provider Department Center 04/23/2023 KAUSHAL FINLEY [facility] SICU None Family History Family history unknown: Yes Normal [facility] BASIC METABOLIC PANELon 11- Anion gap [Moles/Vol] 10 mmol/L Normal 7-20 [facility] Comment on above: Performed By: #### L [id number] ####[facility] ([facility] [place] [address] Calcium [Mass/Vol] 8.4 mg/dL Low 8.6-10.3 [facility] Comment on above: Performed By: #### L [id number] ####[facility] HOSPITAL LAB (BEAKER)[address] [place] [address] Chloride [Moles/Vol] 114 mmol/L High 98-107 [facility] Comment on above: Performed By: #### L [id number] ####[facility] LAB (BEAKER)[address] [place] [address] CO2 [Moles/Vol] 25 mmol/L Normal 21-31 [facility] Comment on above: Performed By: #### L [id number] ####[facility] LAB (BEAKER)[address] [place] [address] Creatinine [Mass/Vol] 0.86 mg/dL Normal 0.70-1.30 [facility] Comment on above: Performed By: #### L [id number] ####[facility] LAB (BEAKER)[address] [place] [address] GLOMERULAR FILTRATION RATE ML/MIN/1.73 SQ M.PREDICTED 93.7 mL/min/1.73m*2 Normal >60.0 [facility] Comment on above: Result Comment: The [facility]???s estimated glomerular filtration rate (eGFR) will no [...] of individuals. Performed By: #### L [id number] ####[facility] ([facility])[address] [facility] [address] Glucose [Mass/Vol] 86 mg/dL Normal 70-100 [facility] Comment on above: Performed By: #### L [id number] ####[facility] ([facility])[address] [facility] [place] [address] Potassium [Moles/Vol] 3.9 mmol/L Normal 3.5-5.1 [facility] Comment on above: Performed By: #### L [id number] ####[facility] ([facility])[address] [facility] [place] [address] Sodium [Moles/Vol] 145 mmol/L Normal 136-145 [facility] Comment on above: Performed By: #### L [id number] ####[facility] ([facility])[address] [facility] [place] [address] Urea nitrogen [Mass/Vol] 19 mg/dL Normal 7-25 [facility] Comment on above: Performed By: #### L [id number] ####[facility] ([facility])[address] [facility] [place] [address] UREA NITROGEN/CREATININ E (MASS RATIO) IN SER/PLAS 22.1 Normal [facility] Comment on above: Performed By: #### L [id number] ####[facility] ([facility])[address] [facility] [address] CALCIUM, IONIZEDon 3 CALCIUM IONIZED (MMOL/L) IN BLOOD 1.20 mmol/L Normal 1.15-1.33 [facility] Comment on above: Performed By: #### C ALCIUM, IONIZED ####[facility] RESPIRATORY [id number] [place] [address] [facility] CALCIUM IONIZED (MMOL/L) IN BLOOD 1.21 mmol/L Normal 1.15-1.33 [facility] Comment on above: Performed By: #### C ALCIUM, IONIZED ####[facility] RESPIRATORY [id number] [place] [address] [facility] CALCIUM IONIZED (MMOL/L) IN BLOOD 1.19 mmol/L Normal 1.15-1.33 [facility] Comment on above: Performed By: #### C ALCIUM, IONIZED ####[facility] RESPIRATORY [id number] [place] [address] [facility] CALCIUM IONIZED (MMOL/L) IN BLOOD 1.07 mmol/L Low 1.15-1.33 [facility] Comment on above: Performed By: #### C ALCIUM, IONIZED ####[facility] RESPIRATORY [id number] [place] [address] [facility] CBCon 04-23-2023 Erythrocyte distribution width (RBC) [Ratio] 13.3 % Normal 11.5-15.0 [facility] Comment on above: Performed By: #### L [id number] ####[facility] LAB (BEAKER)[address] [place] [address] ERYTHROCYTE MEAN CORPUSCULAR HEMOGLOBIN CONCENTRATION (G/DL) BY AUTOMATED 34.2 g/dL Normal 32.0-35.0 [facility] Comment on above: Performed By: #### L [id number] ####[facility] LAB (BEAKER)[address] [place] [address] Hematocrit (Bld) [Volume fraction] 22.5 % Low 39.0-55.0 [facility] Comment on above: Performed By: #### L [id number] ####[facility] ([facility] [place] [address] Hemoglobin (Bld) [Mass/Vol] 7.7 g/dL Low 13.0-17.0 [facility] Comment on above: Result Comment: Resu lts checked Performed By: #### L [id number] ####[facility] ([facility])[address] [place] [address] IMMATURE PLATELET FRACTION % 2.5 % Normal 0.8-6.3 [facility] Comment on above: Performed By: #### L [id number] ####[facility] ([facility])[address] [place] [address] MCH (RBC) [Entitic mass] 31.3 pg Normal 27.0-33.0 [facility] Comment on above: Performed By: #### L [id number] ####[facility] ([facility])[address] [place] [address] MCV (RBC) [Entitic vol] 91.5 fL Normal 82.0-98.0 [facility] Comment on above: Performed By: #### L [id number] ####[facility] ([facility])[address] [place] [address] PLATELETS (10*3/UL) IN BLOOD AUTOMATED COUNT 80 10*3/uL Low 150-400 [facility] Comment on above: Result Comment: Plt est 74 ok Performed By: #### L [id number] ####[facility] ([facility])[address] [place] [address] RBC (Bld) [#/Vol] 2.46 10*6/uL Low 4.20-5.70 [facility] Comment on above: Performed By: #### L [id number] ####[facility] ([facility])[address] [place] [address] WBC (Bld) [#/Vol] 7.84 10*3/uL Normal 4.00-10.60 [facility] Comment on above: Performed By: #### L [id number] ####[facility] ([facility])[address] [place] [address] CBC WITH AUTO DIFFERENTIALon 04-23-2023 Erythrocyte distribution width (RBC) [Ratio] 14.0 % Normal 11.5-15.0 [facility] Comment on above: Performed By: #### L [id number] ####[facility] LAB (BEAKER)[address] [place] [address] ERYTHROCYTE MEAN CORPUSCULAR HEMOGLOBIN CONCENTRATION (G/DL) BY AUTOMATED 33.9 g/dL Normal 32.0-35.0 [facility] Comment on above: Performed By: #### L [id number] ####[facility] LAB (BEAKER)[address] [place] [address] Hematocrit (Bld) [Volume fraction] 18.0 % Low 39.0-55.0 [facility] Comment on above: Performed By: #### L [id number] ####[facility] ([facility] [place] [address] Hemoglobin (Bld) [Mass/Vol] 6.1 g/dL Low 13.0-17.0 [facility] Comment on above: Performed By: #### L [id number] ####[facility] ([facility])[address] [place] [address] IMMATURE PLATELET FRACTION % 3.6 % Normal 0.8-6.3 [facility] Comment on above: Performed By: #### L [id number] ####[facility] ([facility])[address] [place] [address] MCH (RBC) [Entitic mass] 31.4 pg Normal 27.0-33.0 [facility] Comment on above: Performed By: #### L [id number] ####[facility] LAB (BEAKER)[address] [place] [address] MCV (RBC) [Entitic vol] 92.8 fL Normal 82.0-98.0 [facility] Comment on above: Performed By: #### L [id number] ####[facility] LAB (BEAKER)[address] [place] [address] NRBC (PER 100 WBCS) BY AUTOMATED COUNT 0.0 % Normal 0 [facility] Comment on above: Performed By: #### L [id number] ####[facility] LAB (BEAKER)[address] [place] [address] PLATELETS (10*3/UL) IN BLOOD AUTOMATED COUNT 68 10*3/uL Low 150-400 [facility] Comment on above: Performed By: #### L [id number] ####[facility] ([facility])[address] [place] [address] RBC (Bld) [#/Vol] 1.94 10*6/uL Low 4.20-5.70 [facility] Comment on above: Performed By: #### L [id number] ####[facility] ([facility])[address] [place] [address] WBC (Bld) [#/Vol] 12.79 10*3/uL High 4.00-10.60 [facility] Comment on above: Performed By: #### L [id number] ####[facility] ([facility])[address] [place] [address] CK TOTAL AND CKMBon 04-23-20 CREATINE KINASE (U/L) IN SER/PLAS 4110.0 U/L High 30.0-223.0 [facility] Comment on above: Performed By: #### L [id number] ####[facility] ([facility])[address] [place] [address] CREATINE KINASE MB/CREATINE KINASE TOTAL BY CALCULATION 2.9 High <=1.9 [facility] Comment on above: Performed By: #### L [id number] ####[facility] ([facility])[address] [place] [address] CREATINE KINASE-MB (NG/ML) IN SER/PLAS 122.5 ng/mL High 0.0-5.0 [facility] Comment on above: Performed By: #### L [id number] ####[facility] ([facility])[address] [place] [address] CO-OXIMETRYon 04-23-2023 CARBOXYHEMOGLOBIN/ HEMOGLOBIN TOTAL % IN BLOOD 1.3 % Normal [facility] Comment on above: Performed By: #### L [id number] ####[facility] RESPIRATORY [id number] [place] [address] [place] Hemoglobin (Bld) [Mass/Vol] 7.8 g/dL Normal [facility] Comment on above: Performed By: #### L [id number] ####[facility] RESPIRATORY [id number] [place] [address] [place] METHEMOGLOBIN/100 IN BLOOD 1.0 % Normal 0.0-1.5 [facility] Comment on above: Performed By: #### L [id number] ####[facility] RESPIRATORY [id number] [place] [address] [place] Oxygen saturation in Blood 65.8 % Normal [facility] Comment on above: Performed By: #### L [id number] ####[facility] RESPIRATORY [id number] [place] [address] [place] OXYGENATED HEMOGLOBIN IN BLOOD 64.2 % Normal [facility] Comment on above: Performed By: #### L [id number] ####[facility] RESPIRATORY [id number] [place] [address] [facility] COMPREHENSIVE METABOLIC PANE Roddy 04-23-2023 Albumin [Mass/Vol] 3.6 g/dL Normal 3.5-5.7 [facility] Comment on above: Performed By: #### L [id number] ####[facility] HOSPITAL LAB (BEAKER)[address] [place] [address] ALP [Catalytic activity/Vol] 34 U/L Normal 34-104 [facility] Comment on above: Performed By: #### L [id number] ####[facility] HOSPITAL LAB (BEAKER)[address] [place] [address] ALT [Catalytic activity/Vol] 22 U/L Normal 7-52 [facility] Comment on above: Performed By: #### L [id number] ####[facility] HOSPITAL LAB (BEAKER)[address] [place] [address] Anion gap [Moles/Vol] 21 mmol/L High 7-20 [facility] Comment on above: Performed By: #### L [id number] ####[facility] HOSPITAL LAB (BEAKER)[address] [place] [address] AST [Catalytic activity/Vol] 132 U/L High 13-39 [facility] Comment on above: Performed By: #### L [id number] ####[facility] ([facility] [place] [address] Bilirubin [Mass/Vol] 0.5 mg/dL Normal 0.3-1.0 [facility] Comment on above: Performed By: #### L [id number] ####[facility] ([facility])[address] [place] [address] Calcium [Mass/Vol] 8.1 mg/dL Low 8.6-10.3 [facility] Comment on above: Performed By: #### L [id number] ####[facility] ([facility])[address] [place] [address] Chloride [Moles/Vol] 109 mmol/L High 98-107 [facility] Comment on above: Performed By: #### L [id number] ####[facility] ([facility])[address] [place] [address] CO2 [Moles/Vol] 20 mmol/L Low 21-31 [facility] Comment on above: Performed By: #### L [id number] ####[facility] ([facility])[address] [place] [address] Creatinine [Mass/Vol] 1.16 mg/dL Normal 0.70-1.30 [facility] Comment on above: Performed By: #### L [id number] ####[facility] ([facility])[address] [place] [address] GLOMERULAR FILTRATION RATE ML/MIN/1.73 SQ M.PREDICTED 68.2 mL/min/1.73m*2 Normal >60.0 [facility] Comment on above: Result Comment: The [facility]???s estimated glomerular filtration rate (eGFR) will no [...] of individuals. Performed By: #### L [id number] ####[facility] ([facility])[address] [place] [address] Glucose [Mass/Vol] 255 mg/dL High 70-100 [facility] Comment on above: Performed By: #### L [id number] ####[facility] ([facility])[address] [facility] [place] [address] Potassium [Moles/Vol] 4.4 mmol/L Normal 3.5-5.1 [facility] Comment on above: Performed By: #### L [id number] ####[facility] ([facility])[address] [facility] [address] Protein [Mass/Vol] 4.7 g/dL Low 6.0-8.3 [facility] Comment on above: Performed By: #### L [id number] ####[facility] ([facility])[address] [facility] [place] [address] Sodium [Moles/Vol] 146 mmol/L High 136-145 [facility] Comment on above: Performed By: #### L [id number] ####[facility] ([facility])[address] [facility] [place] [address] Urea nitrogen [Mass/Vol] 21 mg/dL Normal 7-25 [facility] Comment on above: Performed By: #### L [id number] ####[facility] ([facility])[address] [facility] [place] [address] UREA NITROGEN/CREATININ E (MASS RATIO) IN SER/PLAS 18.1 Normal [facility] Comment on above: Performed By: #### L [id number] ####[facility] ([facility])[address] [facility] [place] [address] CONSULTon 04-23-2023 CONSULT Normal [facility] CONSULT Normal [facility] FIBRINOGENon 04-23-2023 Magnesium [Mass/Vol] 258 mg/dL Normal 150-425 [facility] Comment on above: Performed By: #### L [id number] ####[facility] ([facility])[address] [place] [address] HEMOGLOBIN AND HEMATOCRIT, B LOODon 04-23-2023 Hematocrit (Bld) [Volume fraction] 28.1 % Low 39.0-55.0 [facility] Comment on above: Performed By: #### L [id number] ####[facility] ([facility])[address] [place] [address] Hemoglobin (Bld) [Mass/Vol] 9.5 g/dL Low 13.0-17.0 [facility] Comment on above: Performed By: #### L [id number] ####[facility] ([facility])[address] [place] [address] LACTIC ACID WITH 4 HOUR REFL EXon 04-23-2023 LACTATE (MMOL/L) IN SER/PLAS 9.1 mmol/L Critically high 0.5-2.2 [facility] Comment on above: Result Comment: Prev ious result verified on 04/23/2023 2137 on specimen/case [id number] called with component Lactate blood venous for procedure Lactic acid, venous, whole blood with value 12.1 mmol/L. Performed By: #### L [id number] ####[facility] ([facility])[address] [place] [address] LACTATE (MMOL/L) IN SER/PLAS 12.1 mmol/L Critically high 0.5-2.2 [facility] Comment on above: Result Comment: Prev ious result verified on 04/22/20236 on specimen/case [id number] called with component Lactate for procedure Lactic acid, plasma with value 2.6 mmol/L. Performed By: #### L [id number] ####[facility] ([facility])[address] [place] [address] LACTIC ACID, PLASMAon 2022 LACTATE (MMOL/L) IN SER/PLAS 2.2 mmol/L Normal 0.5-2.2 [facility] Comment on above: Performed By: #### L [id number] ####[facility] ([facility])[address] [place] [address] LIPASEon 04-23-2023 LIPASE (U/L) IN SER/PLAS 12 U/L Normal [facility] Comment on above: Performed By: #### L [id number] ####[facility] ([facility])[address] [place] [address] MAGNESIUMon 04-23-2023 Magnesium [Mass/Vol] 1.8 mg/dL Low 1.9-2.7 [facility] Comment on above: Performed By: #### L [id number] ####[facility] ([facility])[address] [place] [address] MANUAL DIFFERENTIALon 2022 BASOPHILS (10*3/UL) IN BLOOD BY CALCULATION 0.01 10*3/uL Normal 0.00-0.20 [facility] Comment on above: Performed By: #### L [id number] ####[facility] ([facility])[address] [place] [address] BASOPHILS/100 LEUKOCYTES IN BLOOD BY AUTOMATED COUNT 0.1 % Normal 0.0-1.0 [facility] Comment on above: Performed By: #### L [id number] ####[facility] ([facility])[address] [place] [address] EOSINOPHILS (10*3/UL) IN BLOOD BY CALCULATION 0.00 10*3/uL Normal 0.00-0.50 [facility] Comment on above: Performed By: #### L [id number] ####[facility] ([facility])[address] [place] [address] EOSINOPHILS/100 LEUKOCYTES IN BLOOD BY AUTOMATED COUNT 0.0 % Normal 0.0-6.0 [facility] Comment on above: Performed By: #### L [id number] ####[facility] ([facility])[address] [place] [address] IMMATURE GRANULOCYTES (10*3/UL) IN BLOOD BY CALCULATION 0.09 10*3/uL Normal 0.00-0.20 [facility] Comment on above: Performed By: #### L [id number] ####[facility] ([facility])[address] [place] [address] IMMATURE GRANULOCYTES/100 LEUKOCYTES IN BLOOD BY AUTOMATED COUNT 0.7 % Normal 0.0-1.0 [facility] Comment on above: Performed By: #### L [id number] ####[facility] ([facility])[address] [place] [address] LYMPHOCYTES (10*3/UL) IN BLOOD BY CALCULATION 0.72 10*3/uL Low 1.20-4.00 [facility] Comment on above: Performed By: #### L [id number] ####[facility] ([facility])[address] [place] [address] LYMPHOCYTES/100 LEUKOCYTES IN BLOOD BY AUTOMATED COUNT 5.6 % Low 20.0-45.0 [facility] Comment on above: Performed By: #### L [id number] ####[facility] ([facility])[address] [place] [address] MONOCYTES (10*3/UL) IN BLOOD BY CALCUATION 0.70 10*3/uL Normal 0.10-1.00 [facility] Comment on above: Performed By: #### L [id number] ####[facility] ([facility])[address] [place] [address] MONOCYTES/100 LEUKOCYTES IN BLOOD BY AUTOMATED COUNT 5.5 % Normal 5.0-12.0 [facility] Comment on above: Performed By: #### L [id number] ####[facility] ([facility])[address] [place] [address] NEUTROPHILS (10*3/UL) IN BLOOD BY CALCULATION 11.3 10*3/uL High 1.6-7.6 [facility] Comment on above: Performed By: #### L [id number] ####[facility] ([facility])[address] [place] [address] NEUTROPHILS/100 LEUKOCYTES IN BLOOD BY AUTOMATED COUNT 88.1 % High 40.0-72.0 [facility] Comment on above: Performed By: #### L [id number] ####[facility] (BEAKER)[address] [place] [address] MYOGLOBIN, SERUMon 3 MYOGLOBIN (NG/ML) IN SER/PLAS 1832 ng/mL High 0-90 [facility] Comment on above: Result Comment: A DO UBLING OF VALUES FROM SERIAL BLOOD COLLECTIONS (1 - 2 HOURS APART) IS MORE INDICATIVE OF A M.I. THAN THE ABSOLUTE VALUE. Performed By: #### L [id number] ####[facility] (BEAKER)[address] [facility] [place] [address] MYOGLOBIN, URINEon 3 MYOGLOBIN URINE 2 mg/L High 0-1 [facility] Comment on above: [...] was developed and its performance characteristicsdetermined by [employer]. It has not been cleared orapproved by the [place] Food and Drug Administration. This test wasperformed in a CLIA certified laboratory and is intended forclinical purposes.Performed By: [employer] [place], [place] [address] Director: Wenceslao Healy MD, PhDCLIA Number: [id number] Performed By: #### L [id number] ####[facility] ([facility])[address] [place] [address] PHOSPHORUSon 04-23-2023 Magnesium [Mass/Vol] 3.1 mg/dL Normal 2.5-5.0 [facility] Comment on above: Performed By: #### L [id number] ####[facility] ([facility])[address] [place] [address] POCT GLUCOSE METER UNSOLICIT ED RESULTSon 04-23-2023 Glucose [Mass/Vol] 270 mg/dL High 70-105 [facility] Comment on above: Order Comment: Waive d Testing in the ED is performed under the ED CLIA certificate #[id number]. Result Comment: than sen2 Performed By: #### L [id number] ####[facility] ([facility])[address] [place] [address] Glucose [Mass/Vol] 267 mg/dL High 70-105 [facility] Comment on above: Order Comment: Waive d Testing in the ED is performed under the ED CLIA certificate #[id number]. Result Comment: ileana barragan8 Performed By: #### L [id number] ####[facility] LAB (Ynsect)[address] [place] [address] Glucose [Mass/Vol] 267 mg/dL High 70-105 [facility] Comment on above: Order Comment: Waive d Testing in the ED is performed under the ED CLIA certificate #[id number]. Result Comment: than sen2 Performed By: #### L [id number] ####[facility] ([facility])[address] [place] [address] Glucose [Mass/Vol] 138 mg/dL High 70-105 [facility] Comment on above: Order Comment: Waive d Testing in the ED is performed under the ED CLIA certificate #[id number]. Result Comment: nhay man Performed By: #### L [id number] ####[facility] ([facility])[address] [place] [address] Glucose [Mass/Vol] 92 mg/dL Normal 70-105 [facility] Comment on above: Order Comment: Waive d Testing in the ED is performed under the ED CLIA certificate #[id number]. Result Comment: nhay man Performed By: #### L [id number] ####[facility] ([facility])[address] [place] [address] Glucose [Mass/Vol] 101 mg/dL Normal 70-105 [facility] Comment on above: Order Comment: Waive d Testing in the ED is performed under the ED CLIA certificate #[id number]. Result Comment: [email or web address] Performed By: #### L [id number] ####[facility] (BEAKER)[address] [place] [address] Glucose [Mass/Vol] 91 mg/dL Normal 70-105 [facility] Comment on above: Order Comment: Waive d Testing in the ED is performed under the ED CLIA certificate #[id number]. Result Comment: [email or web address] Performed By: #### L [id number] ####[facility] (Ynsect)[address] [place] [address] Glucose [Mass/Vol] 114 mg/dL High 70-105 [facility] Comment on above: Order Comment: Waive d Testing in the ED is performed under the ED CLIA certificate #[id number]. Result Comment: [email or web address] Performed By: #### L [id number] ####[facility] (BEAKER)[address] [place] [address] Glucose [Mass/Vol] 123 mg/dL High 70-105 [facility] Comment on above: Order Comment: Waive d Testing in the ED is performed under the ED CLIA certificate #[id number]. Result Comment: [email or web address] Performed By: #### L [id number] ####[facility] (BEAKER)[address] [place] [address] Glucose [Mass/Vol] 142 mg/dL High 70-105 [facility] Comment on above: Order Comment: Waive d Testing in the ED is performed under the ED CLIA certificate #[id number]. Result Comment: [email or web address] Performed By: #### L [id number] ####[facility] (BEAKER)[address] [place] [address] POTASSIUM, WHOLE BLOODon Potassium [Moles/Vol] 4.4 mmol/L Normal 3.5-5.1 [facility] Comment on above: Performed By: #### P OTASSIUM, WHOLE BLOOD ####[facility] [id number] [place] [address] [facility] Potassium [Moles/Vol] 4.3 mmol/L Normal 3.5-5.1 [facility] Comment on above: Performed By: #### P OTASSIUM, WHOLE BLOOD ####[facility] [id number] [place] [address] [facility] Potassium [Moles/Vol] 4.1 mmol/L Normal 3.5-5.1 [facility] Comment on above: Performed By: #### P OTASSIUM, WHOLE BLOOD ####[facility] [id number] [place] [address] [facility] Potassium [Moles/Vol] 4.3 mmol/L Normal 3.5-5.1 [facility] Comment on above: Performed By: #### P OTASSIUM, WHOLE BLOOD ####[facility] [id number] [place] [address] [facility] PROTIME-INRon 04-23-2023 INR IN PPP BY COAGULATION ASSAY 1.98 High 0.90-1.10 [facility] Comment on above: Result Comment: ACCC P [...] CHEST 1995;108:[id number]. Performed By: #### L [id number] ####[facility] ([employer])[address] [place] [address] PROTHROMBIN TIME (PT) IN PPP BY COAGULATION ASSAY 22.6 Seconds High 12.3-14.8 [facility] Comment on above: Performed By: #### L [id number] ####[facility] ([employer])[address] [place] [address] INR IN PPP BY COAGULATION ASSAY 1.47 High 0.90-1.10 [facility] Comment on above: Result Comment: ACCC P [...] CHEST 1995;108:231S-246S. Performed By: #### L [id number] ####[facility] ([employer])[address] [place] [address] PROTHROMBIN TIME (PT) IN PPP BY COAGULATION ASSAY 17.9 Seconds High 12.3-14.8 [facility] Comment on above: Performed By: #### L [id number] ####[facility] ([employer])[address] [place] [address] SODIUM, WHOLE BLOODon 2022 SODIUM, WHOLE BLOOD 141 Normal 136-145 [facility] Comment on above: Performed By: #### S ODIUM, WHOLE BLOOD ####[facility] [id number] [place] [address] [place] SODIUM, WHOLE BLOOD 141 Normal 136-145 [facility] Comment on above: Performed By: #### S ODIUM, WHOLE BLOOD ####[facility] [id number] [place] [address] [place] SODIUM, WHOLE BLOOD 143 Normal 136-145 [facility] Comment on above: Performed By: #### S ODIUM, WHOLE BLOOD ####[facility] [id number] [place] [address] [place] SODIUM, WHOLE BLOOD 144 Normal 136-145 [facility] Comment on above: Performed By: #### S ODIUM, WHOLE BLOOD ####[facility] [id number] [facility] [place] [address] [place] TROPONIN Ion 04-23-2023 Troponin I.cardiac [Mass/Vol] 22.65 ng/mL Critically high 0.00-0.04 [facility] Comment on above: Result Comment: M-TR PABLOONIN INITIAL CRITICAL HIGH; RESPUN AND RETESTED Performed By: #### L [id number] ####[facility] (Ynsect)[address] [place] [address] ANESon 04-22-2023 ANES Normal [facility] APTTon 04-22-2023 ACTIVATED PARTIAL THROMBOPLASTIN TIME IN PPP BY COAGULATION ASSAY 43.4 Seconds High 25.0-35.0 [facility] Comment on above: Result Comment: Clin ical significance of the APTT is questionable in the presence of heparin. Performed By: #### L [id number] ####[facility] ([employer])[address] [place] [address] ACTIVATED PARTIAL THROMBOPLASTIN TIME IN PPP BY COAGULATION ASSAY 36.9 Seconds High 25.0-35.0 [facility] Comment on above: Result Comment: Clin ical significance of the APTT is questionable in the presence of heparin. Performed By: #### L [id number] ####[facility] ([facility])[address] [place] [address] ACTIVATED PARTIAL THROMBOPLASTIN TIME IN PPP BY COAGULATION ASSAY 40.3 Seconds High 25.0-35.0 [facility] Comment on above: Order Comment: Pre-o p diagnosis:NSTEMI (non-ST elevated myocardial infarction) (CMS/HCC) [I21.4]Acute non-ST segment elevation myocardial infarction (CMS/HCC) [I21.4]Coronary artery disease, unspecified vessel or lesion type, unspecified whether angina present, unspecified whether [place] or transplanted heart [I25.10] Result Comment: Clin ical significance of the APTT is questionable in the presence of heparin. Performed By: #### L [id number] ####[facility] ([facility])[address] [place] [address] BASIC METABOLIC PANELon 11-0 -2022 Anion gap [Moles/Vol] 9 mmol/L Normal 7-20 [facility] Comment on above: Performed By: #### L [id number] ####[facility] ([facility])[address] [place] [address] Calcium [Mass/Vol] 7.9 mg/dL Low 8.6-10.3 [facility] Comment on above: Performed By: #### L [id number] ####[facility] ([facility])[address] [place] [address] Chloride [Moles/Vol] 114 mmol/L High 98-107 [facility] Comment on above: Performed By: #### L [id number] ####[facility] ([facility])[address] [place] [address] CO2 [Moles/Vol] 25 mmol/L Normal 21-31 [facility] Comment on above: Performed By: #### L [id number] ####[facility] ([facility])[address] [place] [address] Creatinine [Mass/Vol] 0.86 mg/dL Normal 0.70-1.30 [facility] Comment on above: Performed By: #### L [id number] ####[facility] ([facility])[address] [place] [address] GLOMERULAR FILTRATION RATE ML/MIN/1.73 SQ M.PREDICTED 93.7 mL/min/1.73m*2 Normal >60.0 [facility] Comment on above: Result Comment: The [facility]???s estimated glomerular filtration rate (eGFR) will no [...] of individuals. Performed By: #### L [id number] ####[facility] ([facility])[address] [place] [address] Glucose [Mass/Vol] 162 mg/dL High 70-100 [facility] Comment on above: Performed By: #### L [id number] ####[facility] (BEAKER)[address] [place] [address] Potassium [Moles/Vol] 4.2 mmol/L Normal 3.5-5.1 [facility] Comment on above: Performed By: #### L [id number] ####[facility] [place] [address] Sodium [Moles/Vol] 144 mmol/L Normal 136-145 [facility] Comment on above: Performed By: #### L [id number] ####[facility] (BEAKER)[address] [place] [address] Urea nitrogen [Mass/Vol] 19 mg/dL Normal 7-25 [facility] Comment on above: Performed By: #### L [id number] ####[facility] (BEAKER)[address] [place] [address] UREA NITROGEN/CREATININ E (MASS RATIO) IN SER/PLAS 22.1 Normal [facility] Comment on above: Performed By: #### L [id number] ####[facility] (BEAKER)[address] [place] [address] Anion gap [Moles/Vol] 7 mmol/L Normal 7-20 [facility] Comment on above: Performed By: #### L [id number] ####[facility] (BEAKER)[address] [place] [address] Calcium [Mass/Vol] 8.2 mg/dL Low 8.6-10.3 [facility] Comment on above: Performed By: #### L [id number] ####[facility] (BEAKER)[address] [place] [address] Chloride [Moles/Vol] 114 mmol/L High 98-107 [facility] Comment on above: Performed By: #### L [id number] ####[facility] (BEAKER)[address] [place] [address] CO2 [Moles/Vol] 29 mmol/L Normal 21-31 [facility] Comment on above: Performed By: #### L [id number] ####[facility] (BEAKER)[address] [place] [address] Creatinine [Mass/Vol] 0.77 mg/dL Normal 0.70-1.30 [facility] Comment on above: Performed By: #### L [id number] ####[facility] ([facility] [place] [address] GLOMERULAR FILTRATION RATE ML/MIN/1.73 SQ M.PREDICTED 96.9 mL/min/1.73m*2 Normal >60.0 [facility] Comment on above: Result Comment: The [facility]???s estimated glomerular filtration rate (eGFR) will no [...] of individuals. Performed By: #### L [id number] ####[facility] (BEAKER)[address] [place] [address] Glucose [Mass/Vol] 142 mg/dL High 70-100 [facility] Comment on above: Performed By: #### L [id number] ####[facility] (BEAKER)[address] [place] [address] Potassium [Moles/Vol] 3.7 mmol/L Normal 3.5-5.1 [facility] Comment on above: Performed By: #### L [id number] ####[facility] (BEAKER)[address] [place] [address] Sodium [Moles/Vol] 146 mmol/L High 136-145 [facility] Comment on above: Performed By: #### L [id number] ####[facility] (BEAKER)[address] [place] [address] Urea nitrogen [Mass/Vol] 18 mg/dL Normal 7-25 [facility] Comment on above: Performed By: #### L [id number] ####[facility] (BEAKER)[address] [place] [address] UREA NITROGEN/CREATININ E (MASS RATIO) IN SER/PLAS 23.4 Normal [facility] Comment on above: Performed By: #### L [id number] ####[facility] (BEAKER)[address] [place] [address] Anion gap [Moles/Vol] 7 mmol/L Normal 7-20 [facility] Comment on above: Order Comment: Pre-o p diagnosis:NSTEMI (non-ST elevated myocardial infarction) (CMS/HCC) [I21.4]Acute non-ST segment elevation myocardial infarction (CMS/HCC) [I21.4]Coronary artery disease, unspecified vessel or lesion type, unspecified whether angina present, unspecified whether [place] or transplanted heart [I25.10] Performed By: #### L [id number] ####[facility] (BEAKER)[address] [place] [address] Calcium [Mass/Vol] 8.5 mg/dL Low 8.6-10.3 [facility] Comment on above: Order Comment: Pre-o p diagnosis:NSTEMI (non-ST elevated myocardial infarction) (CMS/HCC) [I21.4]Acute non-ST segment elevation myocardial infarction (CMS/HCC) [I21.4]Coronary artery disease, unspecified vessel or lesion type, unspecified whether angina present, unspecified whether [place] or transplanted heart [I25.10] Performed By: #### L [id number] ####[facility] (BEAKER)[address] [place] [address] Chloride [Moles/Vol] 116 mmol/L High 98-107 [facility] Comment on above: Order Comment: Pre-o p diagnosis:NSTEMI (non-ST elevated myocardial infarction) (CMS/HCC) [I21.4]Acute non-ST segment elevation myocardial infarction (CMS/HCC) [I21.4]Coronary artery disease, unspecified vessel or lesion type, unspecified whether angina present, unspecified whether [place] or transplanted heart [I25.10] Performed By: #### L [id number] ####[facility] (BEAKER)[address] [address] CO2 [Moles/Vol] 25 mmol/L Normal 21-31 [facility] Comment on above: Order Comment: Pre-o p diagnosis:NSTEMI (non-ST elevated myocardial infarction) (CMS/HCC) [I21.4]Acute non-ST segment elevation myocardial infarction (CMS/HCC) [I21.4]Coronary artery disease, unspecified vessel or lesion type, unspecified whether angina present, unspecified whether [place] or transplanted heart [I25.10] Performed By: #### L [id number] ####[facility] (BEAKER)[address] [place] [address] Creatinine [Mass/Vol] 0.82 mg/dL Normal 0.70-1.30 [facility] Comment on above: Order Comment: Pre-o p diagnosis:NSTEMI (non-ST elevated myocardial infarction) (CMS/HCC) [I21.4]Acute non-ST segment elevation myocardial infarction (CMS/HCC) [I21.4]Coronary artery disease, unspecified vessel or lesion type, unspecified whether angina present, unspecified whether [place] or transplanted heart [I25.10] Performed By: #### L [id number] ####[facility] ([employer])[address] [place] [address] GLOMERULAR FILTRATION RATE ML/MIN/1.73 SQ M.PREDICTED 95.1 mL/min/1.73m*2 Normal >60.0 [facility] Comment on above: Order Comment: Pre-o p diagnosis:NSTEMI (non-ST elevated myocardial infarction) (CMS/HCC) [I21.4]Acute non-ST segment elevation myocardial infarction (CMS/HCC) [I21.4]Coronary artery disease, unspecified vessel or lesion type, unspecified whether angina present, unspecified whether [place] or transplanted heart [I25.10] Result Comment: The [facility]???s estimated glomerular filtration rate (eGFR) will no [...] of individuals. Performed By: #### L [id number] ####[facility] (BEYnsect)[address] [place] [address] Glucose [Mass/Vol] 198 mg/dL High 70-100 [facility] Comment on above: Order Comment: Pre-o p diagnosis:NSTEMI (non-ST elevated myocardial infarction) ([facility]/HCC) [I21.4]Acute non-ST segment elevation myocardial infarction (CMS/HCC) [I21.4]Coronary artery disease, unspecified vessel or lesion type, unspecified whether angina present, unspecified whether [place] or transplanted heart [I25.10] Performed By: #### L [id number] ####[facility] ([employer])[address] [place] [address] Potassium [Moles/Vol] 3.1 mmol/L Low 3.5-5.1 [facility] Comment on above: Order Comment: Pre-o p diagnosis:NSTEMI (non-ST elevated myocardial infarction) (CMS/HCC) [I21.4]Acute non-ST segment elevation myocardial infarction (CMS/HCC) [I21.4]Coronary artery disease, unspecified vessel or lesion type, unspecified whether angina present, unspecified whether [place] or transplanted heart [I25.10] Performed By: #### L [id number] ####[facility] (BEAKER)[address] [facility] [place] [address] Sodium [Moles/Vol] 145 mmol/L Normal 136-145 [facility] Comment on above: Order Comment: Pre-o p diagnosis:NSTEMI (non-ST elevated myocardial infarction) (CMS/HCC) [I21.4]Acute non-ST segment elevation myocardial infarction (CMS/HCC) [I21.4]Coronary artery disease, unspecified vessel or lesion type, unspecified whether angina present, unspecified whether [place] or transplanted heart [I25.10] Performed By: #### L [id number] ####[facility] (BEAKER)[address] [facility] [place] [address] Urea nitrogen [Mass/Vol] 18 mg/dL Normal 7-25 [facility] Comment on above: Order Comment: Pre-o p diagnosis:NSTEMI (non-ST elevated myocardial infarction) (CMS/HCC) [I21.4]Acute non-ST segment elevation myocardial infarction (CMS/HCC) [I21.4]Coronary artery disease, unspecified vessel or lesion type, unspecified whether angina present, unspecified whether [place] or transplanted heart [I25.10] Performed By: #### L [id number] ####[facility] (BEAKER)[address] [facility] [place] [address] UREA NITROGEN/CREATININ E (MASS RATIO) IN SER/PLAS 22.0 Normal [facility] Comment on above: Order Comment: Pre-o p diagnosis:NSTEMI (non-ST elevated myocardial infarction) (CMS/HCC) [I21.4]Acute non-ST segment elevation myocardial infarction (CMS/HCC) [I21.4]Coronary artery disease, unspecified vessel or lesion type, unspecified whether angina present, unspecified whether [place] or transplanted heart [I25.10] Performed By: #### L [id number] ####[facility] ([facility])[address] [place] [address] CBCon 04-22-2023 Erythrocyte distribution width (RBC) [Ratio] 13.1 % Normal 11.5-15.0 [facility] Comment on above: Performed By: #### L [id number] ####[facility] ([facility])[address] [place] [address] ERYTHROCYTE MEAN CORPUSCULAR HEMOGLOBIN CONCENTRATION (G/DL) BY AUTOMATED 34.7 g/dL Normal 32.0-35.0 [facility] Comment on above: Performed By: #### L [id number] ####[facility] ([facility])[address] [place] [address] Hematocrit (Bld) [Volume fraction] 32.6 % Low 39.0-55.0 [facility] Comment on above: Performed By: #### L [id number] ####[facility] ([facility])[address] [place] [address] Hemoglobin (Bld) [Mass/Vol] 11.3 g/dL Low 13.0-17.0 [facility] Comment on above: Performed By: #### L [id number] ####[facility] ([facility])[address] [place] [address] MCH (RBC) [Entitic mass] 31.1 pg Normal 27.0-33.0 [facility] Comment on above: Performed By: #### L [id number] ####[facility] ([facility])[address] [place] [address] MCV (RBC) [Entitic vol] 89.8 fL Normal 82.0-98.0 [facility] Comment on above: Performed By: #### L [id number] ####[facility] ([facility] [place] [address] PLATELETS (10*3/UL) IN BLOOD AUTOMATED COUNT 107 10*3/uL Low 150-400 [facility] Comment on above: Performed By: #### L [id number] ####[facility] (BEAKER)[address] [place] [address] RBC (Bld) [#/Vol] 3.63 10*6/uL Low 4.20-5.70 [facility] Comment on above: Performed By: #### L [id number] ####[facility] (BEAKER)[address] [place] [address] WBC (Bld) [#/Vol] 18.54 10*3/uL High 4.00-10.60 [facility] Comment on above: Performed By: #### L [id number] ####[facility] (BEAKER)[address] [place] [address] Erythrocyte distribution width (RBC) [Ratio] 13.0 % Normal 11.5-15.0 [facility] Comment on above: Order Comment: Pre-o p diagnosis:NSTEMI (non-ST elevated myocardial infarction) (CMS/HCC) [I21.4]Acute non-ST segment elevation myocardial infarction (CMS/HCC) [I21.4]Coronary artery disease, unspecified vessel or lesion type, unspecified whether angina present, unspecified whether [place] or transplanted heart [I25.10] Performed By: #### L [id number] ####[facility] (BEAKER)[address] [place] [address] ERYTHROCYTE MEAN CORPUSCULAR HEMOGLOBIN CONCENTRATION (G/DL) BY AUTOMATED 34.5 g/dL Normal 32.0-35.0 [facility] Comment on above: Order Comment: Pre-o p diagnosis:NSTEMI (non-ST elevated myocardial infarction) (CMS/HCC) [I21.4]Acute non-ST segment elevation myocardial infarction (CMS/HCC) [I21.4]Coronary artery disease, unspecified vessel or lesion type, unspecified whether angina present, unspecified whether [place] or transplanted heart [I25.10] Performed By: #### L [id number] ####[facility] (BEAKER)[address] [place] [address] Hematocrit (Bld) [Volume fraction] 26.7 % Low 39.0-55.0 [facility] Comment on above: Order Comment: Pre-o p diagnosis:NSTEMI (non-ST elevated myocardial infarction) (CMS/HCC) [I21.4]Acute non-ST segment elevation myocardial infarction (CMS/HCC) [I21.4]Coronary artery disease, unspecified vessel or lesion type, unspecified whether angina present, unspecified whether [place] or transplanted heart [I25.10] Performed By: #### L [id number] ####[facility] ([employer])[address] [facility] [place] [address] Hemoglobin (Bld) [Mass/Vol] 9.2 g/dL Low 13.0-17.0 [facility] Comment on above: Order Comment: Pre-o p diagnosis:NSTEMI (non-ST elevated myocardial infarction) (CMS/HCC) [I21.4]Acute non-ST segment elevation myocardial infarction (CMS/HCC) [I21.4]Coronary artery disease, unspecified vessel or lesion type, unspecified whether angina present, unspecified whether [place] or transplanted heart [I25.10] Performed By: #### L [id number] ####[facility] ([employer])[address] [facility] [place] [address] MCH (RBC) [Entitic mass] 31.4 pg Normal 27.0-33.0 [facility] Comment on above: Order Comment: Pre-o p diagnosis:NSTEMI (non-ST elevated myocardial infarction) (CMS/HCC) [I21.4]Acute non-ST segment elevation myocardial infarction (CMS/HCC) [I21.4]Coronary artery disease, unspecified vessel or lesion type, unspecified whether angina present, unspecified whether [place] or transplanted heart [I25.10] Performed By: #### L [id number] ####[facility] ([employer])[address] [employer] [facility] [place] [address] MCV (RBC) [Entitic vol] 91.1 fL Normal 82.0-98.0 [facility] Comment on above: Order Comment: Pre-o p diagnosis:NSTEMI (non-ST elevated myocardial infarction) (CMS/HCC) [I21.4]Acute non-ST segment elevation myocardial infarction (CMS/HCC) [I21.4]Coronary artery disease, unspecified vessel or lesion type, unspecified whether angina present, unspecified whether [place] or transplanted heart [I25.10] Performed By: #### L [id number] ####[facility] (BEAKER)[address] [place] [address] PLATELETS (10*3/UL) IN BLOOD AUTOMATED COUNT 134 10*3/uL Low 150-400 [facility] Comment on above: Order Comment: Pre-o p diagnosis:NSTEMI (non-ST elevated myocardial infarction) (CMS/HCC) [I21.4]Acute non-ST segment elevation myocardial infarction (CMS/HCC) [I21.4]Coronary artery disease, unspecified vessel or lesion type, unspecified whether angina present, unspecified whether [place] or transplanted heart [I25.10] Performed By: #### L [id number] ####[facility] (BEAKER)[address] [place] [address] RBC (Bld) [#/Vol] 2.93 10*6/uL Low 4.20-5.70 [facility] Comment on above: Order Comment: Pre-o p diagnosis:NSTEMI (non-ST elevated myocardial infarction) (CMS/HCC) [I21.4]Acute non-ST segment elevation myocardial infarction (CMS/HCC) [I21.4]Coronary artery disease, unspecified vessel or lesion type, unspecified whether angina present, unspecified whether [place] or transplanted heart [I25.10] Performed By: #### L [id number] ####[facility] ([facility])[address] [employer] [place] [address] WBC (Bld) [#/Vol] 21.16 10*3/uL High 4.00-10.60 [facility] Comment on above: Order Comment: Pre-o p diagnosis:NSTEMI (non-ST elevated myocardial infarction) (CMS/HCC) [I21.4]Acute non-ST segment elevation myocardial infarction (CMS/HCC) [I21.4]Coronary artery disease, unspecified vessel or lesion type, unspecified whether angina present, unspecified whether [place] or transplanted heart [I25.10] Performed By: #### L [id number] ####[facility] ([facility])[address] [place] [address] CBC WITH AUTO DIFFERENTIALon 04-22-2023 Basophils (Bld) [#/Vol] 0.01 10*3/uL Normal 0.00-0.20 [facility] Comment on above: Performed By: #### L [id number] ####[facility] ([facility])[address] [place] [address] Basophils/100 WBC (Bld) 0.1 % Normal 0.0-1.0 [facility] Comment on above: Performed By: #### L [id number] ####[facility] ([facility])[address] [place] [address] Eosinophils (Bld) [#/Vol] 0.00 10*3/uL Normal 0.00-0.50 [facility] Comment on above: Performed By: #### L [id number] ####[facility] ([facility])[address] [place] [address] Eosinophils/100 WBC (Bld) 0.0 % Normal 0.0-6.0 [facility] Comment on above: Performed By: #### L [id number] ####[facility] ([facility])[address] [place] [address] Erythrocyte distribution width (RBC) [Ratio] 13.2 % Normal 11.5-15.0 [facility] Comment on above: Performed By: #### L [id number] ####[facility] ([facility])[address] [place] [address] ERYTHROCYTE MEAN CORPUSCULAR HEMOGLOBIN CONCENTRATION (G/DL) BY AUTOMATED 35.6 g/dL High 32.0-35.0 [facility] Comment on above: Performed By: #### L [id number] ####[facility] ([facility])[address] [place] [address] Hematocrit (Bld) [Volume fraction] 28.4 % Low 39.0-55.0 [facility] Comment on above: Performed By: #### L [id number] ####[facility] ([facility])[address] [place] [address] Hemoglobin (Bld) [Mass/Vol] 10.1 g/dL Low 13.0-17.0 [facility] Comment on above: Performed By: #### L [id number] ####[facility] ([facility])[address] [place] [address] Immature granulocytes (Bld) [#/Vol] 0.10 10*3/uL Normal 0.00-0.20 [facility] Comment on above: Performed By: #### L [id number] ####[facility] ([facility])[address] [place] [address] Immature granulocytes/100 WBC (Bld) 0.7 % Normal 0.0-1.0 [facility] Comment on above: Performed By: #### L [id number] ####[facility] ([facility])[address] [place] [address] IMMATURE PLATELET FRACTION % 2.3 % Normal 0.8-6.3 [facility] Comment on above: Performed By: #### L [id number] ####[facility] ([facility])[address] [place] [address] Lymphocytes (Bld) [#/Vol] 0.95 10*3/uL Low 1.20-4.00 [facility] Comment on above: Performed By: #### L [id number] ####[facility] ([facility])[address] [place] [address] Lymphocytes/100 WBC (Bld) 6.4 % Low 20.0-45.0 [facility] Comment on above: Performed By: #### L [id number] ####[facility] ([facility])[address] [place] [address] MCH (RBC) [Entitic mass] 31.7 pg Normal 27.0-33.0 [facility] Comment on above: Performed By: #### L [id number] ####[facility] ([facility])[address] [place] [address] MCV (RBC) [Entitic vol] 89.0 fL Normal 82.0-98.0 [facility] Comment on above: Performed By: #### L [id number] ####[facility] ([facility])[address] [place] [address] Monocytes (Bld) [#/Vol] 1.37 10*3/uL High 0.10-1.00 [facility] Comment on above: Performed By: #### L [id number] ####[facility] ([facility])[address] [place] [address] Monocytes/100 WBC (Bld) 9.3 % Normal 5.0-12.0 [facility] Comment on above: Performed By: #### L [id number] ####[facility] ([facility])[address] [place] [address] Neutrophils (Bld) [#/Vol] 12.36 10*3/uL High 1.60-7.60 [facility] Comment on above: Performed By: #### L [id number] ####[facility] ([facility])[address] [place] [address] Neutrophils/100 WBC (Bld) 83.5 % High 40.0-72.0 [facility] Comment on above: Performed By: #### L [id number] ####[facility] ([facility])[address] [place] [address] NRBC (PER 100 WBCS) BY AUTOMATED COUNT 0.0 % Normal 0 [facility] Comment on above: Performed By: #### L [id number] ####[facility] ([facility])[address] [place] [address] PLATELETS (10*3/UL) IN BLOOD AUTOMATED COUNT 108 10*3/uL Low 150-400 [facility] Comment on above: Performed By: #### L [id number] ####[facility] ([facility])[address] [place] [address] RBC (Bld) [#/Vol] 3.19 10*6/uL Low 4.20-5.70 [facility] Comment on above: Performed By: #### L [id number] ####[facility] ([facility])[address] [facility] [place] [address] WBC (Bld) [#/Vol] 14.79 10*3/uL High 4.00-10.60 [facility] Comment on above: Performed By: #### L [id number] ####[facility] ([facility])[address] [place] [address] CO-OXIMETRYon 04-22-2023 CARBOXYHEMOGLOBIN/ HEMOGLOBIN TOTAL % IN BLOOD 1.5 % Normal [facility] Comment on above: Performed By: #### L [id number] ####[facility] [id number] [place] [address] [facility] Hemoglobin (Bld) [Mass/Vol] 12.7 g/dL Normal [facility] Comment on above: Performed By: #### L [id number] ####[facility] [id number] [place] [address] [place] METHEMOGLOBIN/100 IN BLOOD 0.1 % Normal 0.0-1.5 [facility] Comment on above: Performed By: #### L [id number] ####[facility] [id number] [place] [address] [place] Oxygen saturation in Blood 71.7 % Normal [facility] Comment on above: Performed By: #### L [id number] ####[facility] [id number] [facility] [place] [address] [place] OXYGENATED HEMOGLOBIN IN BLOOD 70.6 % Normal [facility] Comment on above: Performed By: #### L [id number] ####[facility] [id number] [facility] [address] [place] CONSULTon 04-22-2023 CONSULT Normal [facility] FIBRINOGENon 04-22-2023 Magnesium [Mass/Vol] 162 mg/dL Normal 150-425 [facility] Comment on above: Order Comment: Pre-o p diagnosis:NSTEMI (non-ST elevated myocardial infarction) (CMS/HCC) [I21.4]Acute non-ST segment elevation myocardial infarction (CMS/HCC) [I21.4]Coronary artery disease, unspecified vessel or lesion type, unspecified whether angina present, unspecified whether [place] or transplanted heart [I25.10] Performed By: #### L [id number] ####[facility] ([facility])[address] [place] [address] HEPATIC FUNCTION PANELon Albumin [Mass/Vol] 2.5 g/dL Low 3.5-5.7 [facility] Comment on above: Performed By: #### L [id number] ####[facility] ([facility])[address] [place] [address] ALP [Catalytic activity/Vol] 54 U/L Normal 34-104 [facility] Comment on above: Performed By: #### L [id number] ####[facility] ([facility])[address] [place] [address] ALT [Catalytic activity/Vol] 10 U/L Normal 7-52 [facility] Comment on above: Performed By: #### L [id number] ####[facility] ([facility])[address] [place] [address] AST [Catalytic activity/Vol] 34 U/L Normal 13-39 [facility] Comment on above: Performed By: #### L [id number] ####[facility] ([facility])[address] [place] [address] Bilirubin [Mass/Vol] 0.6 mg/dL Normal 0.3-1.0 [facility] Comment on above: Performed By: #### L [id number] ####[facility] ([facility])[address] [place] [address] Magnesium [Mass/Vol] 0.2 mg/dL Normal 0-0.2 [facility] Comment on above: Performed By: #### L [id number] ####[facility] ([facility])[address] [place] [address] Protein [Mass/Vol] 3.7 g/dL Low 6.0-8.3 [facility] Comment on above: Performed By: #### L [id number] ####[facility] ([employer])[address] [place] [address] HISTOLOGY - TISSUE EXAMon LAB AP CASE REPORT Normal [facility] Comment on above: Order Comment: Pre-o p diagnosis:NSTEMI (non-ST elevated myocardial infarction) (CMS/HCC) [I21.4]Acute non-ST segment elevation myocardial infarction (CMS/HCC) [I21.4]Coronary artery disease, unspecified vessel or lesion type, unspecified whether angina present, unspecified whether [place] or transplanted heart [I25.10] Result Comment: Surg ical Pathology Case: [id number] Provider: Chaitanya Ames MD Collected: 04/22/2023 0928Ordering Location: [facility] Main Operating Room Received: 04/22/2023 1923Pathologist: RAHEEM Wilsonpecimens: A) - Lymph Node, ANTERIOR MEDIASTINAL LYMPH NODE B) - Lymph Node, RIGHT INTERNAL MAMMARY LYMPH NODE FOR HISTOLOGY Performed By: #### L [id number] ####[facility] ([facility])[address] [place] [address] LAB AP CLINICAL INFORMATION Normal [facility] Comment on above: Order Comment: Pre-o p diagnosis:NSTEMI (non-ST elevated myocardial infarction) (CMS/HCC) [I21.4]Acute non-ST segment elevation myocardial infarction (CMS/HCC) [I21.4]Coronary artery disease, unspecified vessel or lesion type, unspecified whether angina present, unspecified whether [place] or transplanted heart [I25.10] Result Comment: Post -Op RifbeddhkP15.4 - NSTEMI (non-ST elevated myocardial infarction) (CMS/HCC) [ICD-10-CM]I21.4 - Acute non-ST segment elevation myocardial infarction (CMS/HCC) [ICD-10-CM]I25.10 - Coronary artery disease, unspecified vessel or lesion type, unspecified whether angina present, unspecified whether [place] or transplanted heart [ICD-10-CM] Performed By: #### L [id number] ####[facility] ([facility]AKER)[address] [place] [address] LAB AP GROSS DESCRIPTION A. Lymph Node. Normal [facility] Comment on above: Order Comment: Pre-o p diagnosis:NSTEMI (non-ST elevated myocardial infarction) (CMS/HCC) [I21.4]Acute non-ST segment elevation myocardial infarction (CMS/HCC) [I21.4]Coronary artery disease, unspecified vessel or lesion type, unspecified whether angina present, unspecified whether [place] or transplanted heart [I25.10] Result Comment: Rece [...] in 2. The adipose tissue is retained.Jenny Guajardo Pathologists' AssistantB. Lymph Node.Received in formalin labeled Gui Ortiz, RIGHT INTERNAL MAMMARY LYMPH NODE FOR HISTOLOGY Is a yellow-vargas to pale montejo rubbery and lobulated ragged fragment 1 x 0.6 x 0.4 cm. Within the adipose tissue there is a well-circumscribed 0.4 cm anthracotic lymph node. The specimen is bisected and entirely submitted in a single cassette.Jenny Guajardo Pathologists' Orthopaedic Physician Assistant Performed By: #### L [id number] ####[facility] ([facility])[address] [place] [address] LAB AP MICROSCOPIC DESCRIPTION Microscopic examination performed. [facility] Comment on above: Order Comment: Pre-o p diagnosis:NSTEMI (non-ST elevated myocardial infarction) (CMS/HCC) [I21.4]Acute non-ST segment elevation myocardial infarction (CMS/HCC) [I21.4]Coronary artery disease, unspecified vessel or lesion type, unspecified whether angina present, unspecified whether [place] or transplanted heart [I25.10] Performed By: #### L [id number] ####[facility] ([facility])[address] [place] [address] LAB AP REPORT FINAL DIAGNOSIS NARRATIVE Normal [facility] Comment on above: Order Comment: Pre-o p diagnosis:NSTEMI (non-ST elevated myocardial infarction) (CMS/HCC) [I21.4]Acute non-ST segment elevation myocardial infarction (CMS/HCC) [I21.4]Coronary artery disease, unspecified vessel or lesion type, unspecified whether angina present, unspecified whether [place] or transplanted heart [I25.10] Result Comment: A. L ymph node, anterior mediastinal, regional resection: - Two benign lymph nodes with sinus histiocytosis and anthracosis (0/2).B. Lymph node, right internal mammary, regional resection: - One benign lymph node with sinus histiocytosis and anthracosis (0/1). - Minute fragment of skeletal muscle and fibroadipose tissue with focal chronic inflammation. Performed By: #### L [id number] ####[facility] ([employer])[address] [place] [address] HPon 04-22-2023 HP H&P reviewed. The pa tient was examined and there are no changes to the H&P. Normal [facility] LACTIC ACID WITH 4 HOUR REFL EXon 04-22-2023 LACTATE (MMOL/L) IN SER/PLAS 2.3 mmol/L High 0.5-2.2 [facility] Comment on above: Order Comment: Pre-o p diagnosis:NSTEMI (non-ST elevated myocardial infarction) (CMS/HCC) [I21.4]Acute non-ST segment elevation myocardial infarction (CMS/HCC) [I21.4]Coronary artery disease, unspecified vessel or lesion type, unspecified whether angina present, unspecified whether [place] or transplanted heart [I25.10] Performed By: #### L [id number] ####[facility] ([employer])[address] [place] [address] LACTIC ACID, PLASMAon 2022 LACTATE (MMOL/L) IN SER/PLAS 2.6 mmol/L Critically high 0.5-2.2 [facility] Comment on above: Result Comment: Prev ious result verified on 04/22/2023 1906 on specimen/case [id number] called with component Lactate for procedure Lactic acid, plasma with value 2.7 mmol/L. Performed By: #### L [id number] ####[facility] ([facility])[address] [place] [address] LACTATE (MMOL/L) IN SER/PLAS 2.7 mmol/L Critically high 0.5-2.2 [facility] Comment on above: Performed By: #### L [id number] ####[facility] ([facility])[address] [place] [address] MAGNESIUMon 04-22-2023 Magnesium [Mass/Vol] 2.1 mg/dL Normal 1.9-2.7 [facility] Comment on above: Performed By: #### L [id number] ####[facility] ([facility])[address] [place] [address] Magnesium [Mass/Vol] 2.4 mg/dL Normal 1.9-2.7 [facility] Comment on above: Order Comment: Pre-o p diagnosis:NSTEMI (non-ST elevated myocardial infarction) (CMS/HCC) [I21.4]Acute non-ST segment elevation myocardial infarction (CMS/HCC) [I21.4]Coronary artery disease, unspecified vessel or lesion type, unspecified whether angina present, unspecified whether [place] or transplanted heart [I25.10] Performed By: #### L [id number] ####[facility] ([facility])[address] [place] [address] OPNOTEon 04-22-2023 OPNOTE Normal [facility] PHOSPHORUSon 04-22-2023 Magnesium [Mass/Vol] 3.6 mg/dL Normal 2.5-5.0 [facility] Comment on above: Performed By: #### L [id number] ####[facility] ([facility])[address] [place] [address] POCT ACTIVATED CLOTTING TIME UNSOLICITED RESULTSon 04-22-2023 POC ACTIVATED CLOTTING TIME 132 sec Normal 82-152 [facility] Comment on above: Performed By: #### L [id number] ####[facility] ([facility]AKER)[address] [place] [address] POC ACTIVATED CLOTTING TIME 341 sec High 82-152 [facility] Comment on above: Performed By: #### L [id number] ####[facility] ([facility]AKER)[address] [place] [address] POC ACTIVATED CLOTTING TIME 473 sec High 82-152 [facility] Comment on above: Performed By: #### L [id number] ####[facility] ([facility])[address] [place] [address] POC ACTIVATED CLOTTING TIME 516 sec High 82-152 [facility] Comment on above: Performed By: #### L [id number] ####[facility] ([facility]ER)[address] [place] [address] POC ACTIVATED CLOTTING TIME 460 sec High 82-152 [facility] Comment on above: Performed By: #### L [id number] ####[facility] ([facility]ER)[address] [place] [address] POC ACTIVATED CLOTTING TIME 446 sec High 82-152 [facility] Comment on above: Performed By: #### L [id number] ####[facility] ([facility]ER)[address] [place] [address] POC ACTIVATED CLOTTING TIME 479 sec High 82-152 [facility] Comment on above: Performed By: #### L [id number] ####[facility] ([facility]ER)[address] [place] [address] POC ACTIVATED CLOTTING TIME 447 sec High 82-152 [facility] Comment on above: Performed By: #### L [id number] ####[facility] ([facility]ER)[address] [place] [address] POC ACTIVATED CLOTTING TIME 596 sec High 82-152 [facility] Comment on above: Performed By: #### L [id number] ####[facility] ([facility]ER)[address] [place] [address] POC ACTIVATED CLOTTING TIME 602 sec High 82-152 [facility] Comment on above: Performed By: #### L [id number] ####[facility] ([facility] [place] [address] POC ACTIVATED CLOTTING TIME 143 sec Normal 82-152 [facility] Comment on above: Performed By: #### L [id number] ####[facility] ([facility]ER)[address] [place] [address] POCT GLUCOSE METER UNSOLICIT ED RESULTSon 04-22-2023 Glucose [Mass/Vol] 152 mg/dL High 70-105 [facility] Comment on above: Order Comment: Waive d Testing in the ED is performed under the ED CLIA certificate #[id number]. Result Comment: ahoo ver7 Performed By: #### L [id number] ####[facility] ([facility])[address] [place] [address] Glucose [Mass/Vol] 167 mg/dL High 70-105 [facility] Comment on above: Order Comment: Waive d Testing in the ED is performed under the ED CLIA certificate #[id number]. Result Comment: vsan der3 Performed By: #### L [id number] ####[facility] ([facility])[address] [place] [address] Glucose [Mass/Vol] 156 mg/dL High 70-105 [facility] Comment on above: Order Comment: Waive d Testing in the ED is performed under the ED CLIA certificate #[id number]. Result Comment: vsan der3 Performed By: #### L [id number] ####[facility] ([facility])[address] [place] [address] Glucose [Mass/Vol] 121 mg/dL High 70-105 [facility] Comment on above: Order Comment: Waive d Testing in the ED is performed under the ED CLIA certificate #[id number]. Result Comment: ahoo ver7 Performed By: #### L [id number] ####[facility] (BEAKER)[address] [place] [address] Glucose [Mass/Vol] 122 mg/dL High 70-105 [facility] Comment on above: Order Comment: Waive d Testing in the ED is performed under the ED CLIA certificate #[id number]. Result Comment: geetha man Performed By: #### L [id number] ####[facility] ([facility])[address] [place] [address] Glucose [Mass/Vol] 137 mg/dL High 70-105 [facility] Comment on above: Order Comment: Waive d Testing in the ED is performed under the ED CLIA certificate #[id number]. Result Comment: cfit [email or web address] Performed By: #### L [id number] ####[facility] ([facility])[address] [place] [address] Glucose [Mass/Vol] 107 mg/dL High 70-105 [facility] Comment on above: Order Comment: Waive d Testing in the ED is performed under the ED CLIA certificate #[id number]. Result Comment: hste enr2 Performed By: #### L [id number] ####[facility] ([facility])[address] [place] [address] POCT PERFUSION PANEL UNSOLIC ITED RESULTSon 04-22-2023 CO2 [Moles/Vol] 25.0 mmol/L Normal 21.0-29.0 [facility] Comment on above: Performed By: #### L [id number] ####[facility] ([facility])[address] [place] [address] Glucose [Mass/Vol] 195 mg/dL High 70-105 [facility] Comment on above: Performed By: #### L [id number] ####[facility] ([facility])[address] [place] [address] HCO3 (Bld) [Moles/Vol] 23.6 mmol/L Normal 23.0-28.0 [facility] Comment on above: Performed By: #### L [id number] ####[facility] (BEAKER)[address] [place] [address] Hematocrit (Bld) [Volume fraction] 27 % Low 38-51 [facility] Comment on above: Performed By: #### L [id number] ####[facility] ([facility])[address] [place] [address] Hemoglobin (Bld) [Mass/Vol] 9.2 g/dL Low 12.0-17.0 [facility] Comment on above: Performed By: #### L [id number] ####[facility] ([facility])[address] [place] [address] POCT BASE EXCESS -3.0 mmol/L Low -2.0-3.0 [facility] Comment on above: Performed By: #### L [id number] ####[facility] ([facility])[address] [place] [address] POCT IONIZED CALCIUM 1.35 mmol/L High 1.12-1.32 [facility] Comment on above: Performed By: #### L [id number] ####[facility] ([facility])[address] [place] [address] POCT PCO2 47.6 mmHg Normal 41.0-51.0 [facility] Comment on above: Performed By: #### L [id number] ####[facility] ([facility])[address] [place] [address] POCT PH 7.30 Low 7.31-7.41 [facility] Comment on above: Performed By: #### L [id number] ####[facility] ([facility])[address] [place] [address] POCT PO2 355 mmHg High 80-105 [facility] Comment on above: Performed By: #### L [id number] ####[facility] ([facility] [place] [address] POCT SO2 100 % High 95-98 [facility] Comment on above: Performed By: #### L [id number] ####[facility] (BEAKER)[address] [place] [address] Potassium [Moles/Vol] 3.2 mmol/L Low 3.5-4.9 [facility] Comment on above: Performed By: #### L [id number] ####[facility] (BEAKER)[address] [place] [address] Sodium [Moles/Vol] 146 mmol/L Normal 138.0-146.0 [facility] Comment on above: Performed By: #### L [id number] ####[facility] (BEAKER)[address] [place] [address] CO2 [Moles/Vol] 26.0 mmol/L Normal 21.0-29.0 [facility] Comment on above: Performed By: #### L [id number] ####[facility] ([facility] [place] [address] Glucose [Mass/Vol] 196 mg/dL High 70-105 [facility] Comment on above: Performed By: #### L [id number] ####[facility] (BEAKER)[address] [place] [address] HCO3 (Bld) [Moles/Vol] 24.2 mmol/L Normal 23.0-28.0 [facility] [facility] Comment on above: Performed By: #### L [id number] ####[facility] (BEAK[facility])[address] [place] [address] Hematocrit (Bld) [Volume fraction] 21 % Low 38-51 [facility] Comment on above: Performed By: #### L [id number] ####[facility] ([facility])[address] [place] [address] Hemoglobin (Bld) [Mass/Vol] 7.1 g/dL Low 12.0-17.0 [facility] Comment on above: Performed By: #### L [id number] ####[facility] ([facility])[address] [place] [address] POCT BASE EXCESS -3.0 mmol/L Low -2.0-3.0 [facility] Comment on above: Performed By: #### L [id number] ####[facility] ([facility])[address] [place] [address] POCT IONIZED CALCIUM 1.19 mmol/L Normal 1.12-1.32 [facility] Comment on above: Performed By: #### L [id number] ####[facility] ([facility])[address] [place] [address] POCT PCO2 52.4 mmHg High 41.0-51.0 [facility] Comment on above: Performed By: #### L [id number] ####[facility] ([facility])[address] [place] [address] POCT PH 7.27 Low 7.31-7.41 [facility] Comment on above: Performed By: #### L [id number] ####[facility] ([facility])[address] [place] [address] POCT PO2 488 mmHg High 80-105 [facility] Comment on above: Performed By: #### L [id number] ####[facility] ([facility])[address] [place] [address] POCT SO2 100 % High 95-98 [facility] Comment on above: Performed By: #### L [id number] ####[facility] ([facility])[address] [place] [address] Potassium [Moles/Vol] 3.7 mmol/L Normal 3.5-4.9 [facility] Comment on above: Performed By: #### L [id number] ####[facility] ([facility])[address] [place] [address] Sodium [Moles/Vol] 145 mmol/L Normal 138.0-146.0 [facility] Comment on above: Performed By: #### L [id number] ####[facility] ([facility])[address] [place] [address] CO2 [Moles/Vol] 24.0 mmol/L Normal 21.0-29.0 [facility] Comment on above: Performed By: #### L [id number] ####[facility] ([facility])[address] [place] [address] Glucose [Mass/Vol] 177 mg/dL High 70-105 [facility] Comment on above: Performed By: #### L [id number] ####[facility] ([facility])[address] [place] [address] HCO3 (Bld) [Moles/Vol] 22.2 mmol/L Low 23.0-28.0 [facility] Comment on above: Performed By: #### L [id number] ####[facility] ([facility])[address] [place] [address] Hematocrit (Bld) [Volume fraction] 21 % Low 38-51 [facility] Comment on above: Performed By: #### L [id number] ####[facility] ([facility])[address] [place] [address] Hemoglobin (Bld) [Mass/Vol] 7.1 g/dL Low 12.0-17.0 [facility] Comment on above: Performed By: #### L [id number] ####[facility] ([facility])[address] [place] [address] POCT BASE EXCESS -4.0 mmol/L Low -2.0-3.0 [facility] Comment on above: Performed By: #### L [id number] ####[facility] ([facility])[address] [place] [address] POCT IONIZED CALCIUM 1.32 mmol/L Normal 1.12-1.32 [facility] Comment on above: Performed By: #### L [id number] ####[facility] ([facility])[address] [place] [address] POCT PCO2 44.7 mmHg Normal 41.0-51.0 [facility] Comment on above: Performed By: #### L [id number] ####[facility] ([facility])[address] [place] [address] POCT PH 7.30 Low 7.31-7.41 [facility] Comment on above: Performed By: #### L [id number] ####[facility] ([facility])[address] [place] [address] POCT PO2 449 mmHg High 80-105 [facility] Comment on above: Performed By: #### L [id number] ####[facility] ([facility])[address] [place] [address] POCT SO2 100 % High 95-98 [facility] Comment on above: Performed By: #### L [id number] ####[facility] ([facility])[address] [place] [address] Potassium [Moles/Vol] 4.4 mmol/L Normal 3.5-4.9 [facility] Comment on above: Performed By: #### L [id number] ####[facility] ([facility])[address] [place] [address] Sodium [Moles/Vol] 141 mmol/L Normal 138.0-146.0 [facility] Comment on above: Performed By: #### L [id number] ####[facility] ([facility])[address] [place] [address] CO2 [Moles/Vol] 25.0 mmol/L Normal 21.0-29.0 [facility] Comment on above: Performed By: #### L [id number] ####[facility] ([facility])[address] [place] [address] Glucose [Mass/Vol] 171 mg/dL High 70-105 [facility] Comment on above: Performed By: #### L [id number] ####[facility] ([facility])[address] [place] [address] HCO3 (Bld) [Moles/Vol] 24.0 mmol/L Normal 23.0-28.0 [facility] Comment on above: Performed By: #### L [id number] ####[facility] ([facility]ER)[address] [place] [address] Hematocrit (Bld) [Volume fraction] 26 % Low 38-51 [facility] Comment on above: Performed By: #### L [id number] ####[facility] ([facility]ER)[address] [address] Hemoglobin (Bld) [Mass/Vol] 8.8 g/dL Low 12.0-17.0 [facility] Comment on above: Performed By: #### L [id number] ####[facility] [address] POCT BASE EXCESS -1.0 mmol/L Normal -2.0-3.0 [facility] Comment on above: Performed By: #### L [id number] ####[facility] ([facility])[address] [address] POCT IONIZED CALCIUM 1.06 mmol/L Low 1.12-1.32 [facility] Comment on above: Performed By: #### L [id number] ####[facility] [address] POCT PCO2 38.1 mmHg Low 41.0-51.0 [facility] Comment on above: Performed By: #### L [id number] ####[facility] ([facility])[address] [address] POCT PH 7.41 Normal 7.31-7.41 [facility] Comment on above: Performed By: #### L [id number] ####[facility] ([facility])[address] [address] POCT PO2 534 mmHg High 80-105 [facility] Comment on above: Performed By: #### L [id number] ####[facility] ([facility])[address] [address] POCT SO2 100 % High 95-98 [facility] Comment on above: Performed By: #### L [id number] ####[facility] ([facility])[address] [address] Potassium [Moles/Vol] 4.1 mmol/L Normal 3.5-4.9 [facility] Comment on above: Performed By: #### L [id number] ####[facility] ([facility]ER)[address] [place] [address] Sodium [Moles/Vol] 141 mmol/L Normal 138.0-146.0 [facility] Comment on above: Performed By: #### L [id number] ####[facility] ([facility]ER)[address] [place] [address] CO2 [Moles/Vol] 27.0 mmol/L Normal 21.0-29.0 [facility] Comment on above: Performed By: #### L [id number] ####[facility] ([facility]ER)[address] [place] [address] Glucose [Mass/Vol] 187 mg/dL High 70-105 [facility] Comment on above: Performed By: #### L [id number] ####[facility] ([facility]ER)[address] [place] [address] HCO3 (Bld) [Moles/Vol] 25.8 mmol/L Normal 23.0-28.0 [facility] Comment on above: Performed By: #### L [id number] ####[facility] ([facility])[address] [place] [address] Hematocrit (Bld) [Volume fraction] 26 % Low 38-51 [facility] Comment on above: Performed By: #### L [id number] ####[facility] ([facility]ER)[address] [place] [address] Hemoglobin (Bld) [Mass/Vol] 8.8 g/dL Low 12.0-17.0 [facility] Comment on above: Performed By: #### L [id number] ####[facility] ([facility]ER)[address] [place] [address] POCT BASE EXCESS 1.0 mmol/L Normal -2.0-3.0 [facility] Comment on above: Performed By: #### L [id number] ####[facility] (BE[facility]ER)[address] [address] POCT IONIZED CALCIUM 1.06 mmol/L Low 1.12-1.32 [facility] Comment on above: Performed By: #### L [id number] ####[facility] ([facility])[address] [address] POCT PCO2 40.4 mmHg Low 41.0-51.0 [facility] Comment on above: Performed By: #### L [id number] ####[facility] [address] POCT PH 7.41 Normal 7.31-7.41 [facility] Comment on above: Performed By: #### L [id number] ####[facility] ([facility])[address] [address] POCT PO2 506 mmHg High 80-105 [facility] Comment on above: Performed By: #### L [id number] ####[facility], [place] [address] POCT SO2 100 % High 95-98 [facility] Comment on above: Performed By: #### L [id number] ####[facility] ([facility], [place] [address] Potassium [Moles/Vol] 4.2 mmol/L Normal 3.5-4.9 [facility] Comment on above: Performed By: #### L [id number] ####[facility] ([facility], [place] [address] Sodium [Moles/Vol] 141 mmol/L Normal 138.0-146.0 [facility] Comment on above: Performed By: #### L [id number] ####[facility] ([facility])[address], [place] [address] CO2 [Moles/Vol] 23.0 mmol/L Normal 21.0-29.0 [facility] Comment on above: Performed By: #### L [id number] ####[facility] ([facility])[address] [place] [address] Glucose [Mass/Vol] 211 mg/dL High 70-105 [facility] Comment on above: Performed By: #### L [id number] ####[facility] ([facility])[address] [place] [address] HCO3 (Bld) [Moles/Vol] 22.1 mmol/L Low 23.0-28.0 [facility] Comment on above: Performed By: #### L [id number] ####[facility] ([facility] [place] [address] Hematocrit (Bld) [Volume fraction] 28 % Low 38-51 [facility] Comment on above: Performed By: #### L [id number] ####[facility] ([facility] [place] [address] Hemoglobin (Bld) [Mass/Vol] 9.5 g/dL Low 12.0-17.0 [facility] Comment on above: Performed By: #### L [id number] ####[facility] ([facility])[address] [place] [address] POCT BASE EXCESS -3.0 mmol/L Low -2.0-3.0 [facility] Comment on above: Performed By: #### L [id number] ####[facility] ([facility] [place] [address] POCT IONIZED CALCIUM 1.08 mmol/L Low 1.12-1.32 [facility] Comment on above: Performed By: #### L [id number] ####[facility] ([facility])[address] [place] [address] POCT PCO2 38.1 mmHg Low 41.0-51.0 [facility] Comment on above: Performed By: #### L [id number] ####[facility] ([facility])[address] [place] [address] POCT PH 7.37 Normal 7.31-7.41 [facility] Comment on above: Performed By: #### L [id number] ####[facility] ([facility])[address] [place] [address] POCT PO2 418 mmHg High 80-105 [facility] Comment on above: Performed By: #### L [id number] ####[facility] ([facility]ER)[address] [place] [address] POCT SO2 100 % High 95-98 [facility] Comment on above: Performed By: #### L [id number] ####[facility] ([facility]ER)[address] [place] [address] Potassium [Moles/Vol] 4.7 mmol/L Normal 3.5-4.9 [facility] Comment on above: Performed By: #### L [id number] ####[facility] ([facility]ER)[address] [place] [address] Sodium [Moles/Vol] 137 mmol/L Low 138.0-146.0 [facility] Comment on above: Performed By: #### L [id number] ####[facility] ([facility])[address] [place] [address] CO2 [Moles/Vol] 24.0 mmol/L Normal 21.0-29.0 [facility] Comment on above: Performed By: #### L [id number] ####[facility] ([facility]ER)[address] [place] [address] Glucose [Mass/Vol] 203 mg/dL High 70-105 [facility] Comment on above: Performed By: #### L [id number] ####[facility] ([facility])[address] [place] [address] HCO3 (Bld) [Moles/Vol] 22.6 mmol/L Low 23.0-28.0 [facility] Comment on above: Performed By: #### L [id number] ####[facility] ([facility])[address] [place] [address] Hematocrit (Bld) [Volume fraction] 26 % Low 38-51 [facility] Comment on above: Performed By: #### L [id number] ####[facility] ([facility])[address] [address] Hemoglobin (Bld) [Mass/Vol] 8.8 g/dL Low 12.0-17.0 [facility] Comment on above: Performed By: #### L [id number] ####[facility] ([facility])[address] [address] POCT BASE EXCESS -2.0 mmol/L Normal -2.0-3.0 [facility] Comment on above: Performed By: #### L [id number] ####[facility] ([facility] [address] POCT IONIZED CALCIUM 1.06 mmol/L Low 1.12-1.32 [facility] Comment on above: Performed By: #### L [id number] ####[facility] ([facility])[address] [address] POCT PCO2 38.7 mmHg Low 41.0-51.0 [facility] Comment on above: Performed By: #### L [id number] ####[facility] ([facility])[address] [address] POCT PH 7.38 Normal 7.31-7.41 [facility] Comment on above: Performed By: #### L [id number] ####[facility] ([facility])[address] [address] POCT PO2 377 mmHg High 80-105 [facility] Comment on above: Performed By: #### L [id number] ####[facility] ([facility])[address] [address] POCT SO2 100 % High 95-98 [facility] Comment on above: Performed By: #### L [id number] ####[facility] ([facility])[address] [address] Potassium [Moles/Vol] 5.0 mmol/L High 3.5-4.9 [facility] Comment on above: Performed By: #### L [id number] ####[facility] ([facility]ER)[address] [place] [address] Sodium [Moles/Vol] 137 mmol/L Low 138.0-146.0 [facility] Comment on above: Performed By: #### L [id number] ####[facility] ([facility]ER)[address] [place] [address] CO2 [Moles/Vol] 24.0 mmol/L Normal 21.0-29.0 [facility] Comment on above: Performed By: #### L [id number] ####[facility] ([facility])[address] [place] [address] Glucose [Mass/Vol] 193 mg/dL High 70-105 [facility] Comment on above: Performed By: #### L [id number] ####[facility] ([facility]ER)[address] [place] [address] HCO3 (Bld) [Moles/Vol] 23.3 mmol/L Normal 23.0-28.0 [facility] Comment on above: Performed By: #### L [id number] ####[facility] ([facility])[address] [place] [address] Hematocrit (Bld) [Volume fraction] 28 % Low 38-51 [facility] Comment on above: Performed By: #### L [id number] ####[facility] ([facility])[address] [place] [address] Hemoglobin (Bld) [Mass/Vol] 9.5 g/dL Low 12.0-17.0 [facility] Comment on above: Performed By: #### L [id number] ####[facility] ([facility])[address] [place] [address] POCT BASE EXCESS -2.0 mmol/L Normal -2.0-3.0 [facility] Comment on above: Performed By: #### L [id number] ####[facility] ([facility])[address] [address] POCT IONIZED CALCIUM 1.07 mmol/L Low 1.12-1.32 [facility] Comment on above: Performed By: #### L [id number] ####[facility] ([facility])[address] [address] POCT PCO2 38.7 mmHg Low 41.0-51.0 [facility] Comment on above: Performed By: #### L [id number] ####[facility] ([facility])[address] [address] POCT PH 7.39 Normal 7.31-7.41 [facility] Comment on above: Performed By: #### L [id number] ####[facility] [address] POCT PO2 367 mmHg High 80-105 [facility] Comment on above: Performed By: #### L [id number] ####[facility] [address] POCT SO2 100 % High 95-98 [facility] Comment on above: Performed By: #### L [id number] ####[facility] ([facility], [place] [address] Potassium [Moles/Vol] 5.6 mmol/L High 3.5-4.9 [facility] Comment on above: Performed By: #### L [id number] ####[facility] ([facility]ER)[address], [place] [address] Sodium [Moles/Vol] 138 mmol/L Normal 138.0-146.0 [facility] Comment on above: Performed By: #### L [id number] ####[facility] ([facility])[address], [place] [address] CO2 [Moles/Vol] 25.0 mmol/L Normal 21.0-29.0 [facility] Comment on above: Performed By: #### L [id number] ####[facility] ([facility]ER)[address] [place] [address] Glucose [Mass/Vol] 165 mg/dL High 70-105 [facility] Comment on above: Performed By: #### L [id number] ####[facility] ([facility]ER)[address] [place] [address] HCO3 (Bld) [Moles/Vol] 23.5 mmol/L Normal 23.0-28.0 [facility] Comment on above: Performed By: #### L [id number] ####[facility] ([facility]ER)[address] [place] [address] Hematocrit (Bld) [Volume fraction] 27 % Low 38-51 [facility] Comment on above: Performed By: #### L [id number] ####[facility] ([facility]ER)[address] [place] [address] Hemoglobin (Bld) [Mass/Vol] 9.2 g/dL Low 12.0-17.0 [facility] Comment on above: Performed By: #### L [id number] ####[facility] ([facility]ER)[address] [place] [address] POCT BASE EXCESS -1.0 mmol/L Normal -2.0-3.0 [facility] Comment on above: Performed By: #### L [id number] ####[facility] ([facility])[address] [place] [address] POCT IONIZED CALCIUM 1.08 mmol/L Low 1.12-1.32 [facility] Comment on above: Performed By: #### L [id number] ####[facility] ([facility])[address] [place] [address] POCT PCO2 38.4 mmHg Low 41.0-51.0 [facility] Comment on above: Performed By: #### L [id number] ####[facility] ([facility])[address] [place] [address] POCT PH 7.39 Normal 7.31-7.41 [facility] Comment on above: Performed By: #### L [id number] ####[facility] ([facility])[address] [place] [address] POCT PO2 387 mmHg High 80-105 [facility] Comment on above: Performed By: #### L [id number] ####[facility] ([facility])[address] [place] [address] POCT SO2 100 % High 95-98 [facility] Comment on above: Performed By: #### L [id number] ####[facility] ([facility]ER)[address] [place] [address] Potassium [Moles/Vol] 5.9 mmol/L High 3.5-4.9 [facility] Comment on above: Performed By: #### L [id number] ####[facility] ([facility])[address] [place] [address] Sodium [Moles/Vol] 138 mmol/L Normal 138.0-146.0 [facility] Comment on above: Performed By: #### L [id number] ####[facility] ([facility])[address] [place] [address] CO2 [Moles/Vol] 26.0 mmol/L Normal 21.0-29.0 [facility] Comment on above: Performed By: #### L [id number] ####[facility] ([facility])[address] [place] [address] Glucose [Mass/Vol] 142 mg/dL High 70-105 [facility] Comment on above: Performed By: #### L [id number] ####[facility] ([facility])[address] [place] [address] HCO3 (Bld) [Moles/Vol] 24.5 mmol/L Normal 23.0-28.0 [facility] Comment on above: Performed By: #### L [id number] ####[facility] ([facility])[address] [place] [address] Hematocrit (Bld) [Volume fraction] 24 % Low 38-51 [facility] Comment on above: Performed By: #### L [id number] ####[facility] ([facility])[address] [address] Hemoglobin (Bld) [Mass/Vol] 8.2 g/dL Low 12.0-17.0 [facility] Comment on above: Performed By: #### L [id number] ####[facility] ([facility])[address] [address] POCT BASE EXCESS -1.0 mmol/L Normal -2.0-3.0 [facility] Comment on above: Performed By: #### L [id number] ####[facility] ([facility])[address] [address] POCT IONIZED CALCIUM 0.99 mmol/L Low 1.12-1.32 [facility] Comment on above: Performed By: #### L [id number] ####[facility] ([facility])[address] [address] POCT PCO2 44.6 mmHg Normal 41.0-51.0 [facility] Comment on above: Performed By: #### L [id number] ####[facility] ([facility])[address] [address] POCT PH 7.35 Normal 7.31-7.41 [facility] Comment on above: Performed By: #### L [id number] ####[facility] ([facility])[address] [address] POCT PO2 462 mmHg High 80-105 [facility] Comment on above: Performed By: #### L [id number] ####[facility] ([facility])[address] [address] POCT SO2 100 % High 95-98 [facility] Comment on above: Performed By: #### L [id number] ####[facility] ([facility])[address] [address] Potassium [Moles/Vol] 6.2 mmol/L Critically high 3.5-4.9 [facility] Comment on above: Performed By: #### L [id number] ####[facility] ([facility])[address] [place] [address] Sodium [Moles/Vol] 136 mmol/L Low 138.0-146.0 [facility] Comment on above: Performed By: #### L [id number] ####[facility] ([facility]AKER)[address] [place] [address] CO2 [Moles/Vol] 24.0 mmol/L Normal 21.0-29.0 [facility] Comment on above: Performed By: #### L [id number] ####[facility] ([facility]AKER)[address] [place] [address] Glucose [Mass/Vol] 151 mg/dL High 70-105 [facility] Comment on above: Performed By: #### L [id number] ####[facility] (BEAKER)[address] [place] [address] HCO3 (Bld) [Moles/Vol] 22.6 mmol/L Low 23.0-28.0 [facility] Comment on above: Performed By: #### L [id number] ####[facility] (BEAKER)[address] [place] [address] Hematocrit (Bld) [Volume fraction] 38 % Normal 38-51 [facility] Comment on above: Performed By: #### L [id number] ####[facility] ([facility]AKER)[address] [place] [address] Hemoglobin (Bld) [Mass/Vol] 12.9 g/dL Normal 12.0-17.0 [facility] Comment on above: Performed By: #### L [id number] ####[facility] ([facility]AKER)[address] [place] [address] POCT BASE EXCESS -4.0 mmol/L Low -2.0-3.0 [facility] Comment on above: Performed By: #### L [id number] ####[facility] ([facility]AKER)[address] [address] POCT IONIZED CALCIUM 1.25 mmol/L Normal 1.12-1.32 [facility] Comment on above: Performed By: #### L [id number] ####[facility] ([facility]ER)[address] [address] POCT PCO2 47.5 mmHg Normal 41.0-51.0 [facility] Comment on above: Performed By: #### L [id number] ####[facility] ([facility]ER)[address] [address] POCT PH 7.29 Low 7.31-7.41 [facility] Comment on above: Performed By: #### L [id number] ####[facility] ([facility] [address] POCT PO2 336 mmHg High 80-105 [facility] Comment on above: Performed By: #### L [id number] ####[facility] ([facility] [address] POCT SO2 100 % High 95-98 [facility] Comment on above: Performed By: #### L [id number] ####[facility] (BEAKER)[address] [address] Potassium [Moles/Vol] 4.4 mmol/L Normal 3.5-4.9 [facility] Comment on above: Performed By: #### L [id number] ####[facility] (BEAKER)[address] [address] Sodium [Moles/Vol] 139 mmol/L Normal 138.0-146.0 [facility] Comment on above: Performed By: #### L [id number] ####[facility] (BEAKER)[address] [address] CO2 [Moles/Vol] 23.0 mmol/L Normal 21.0-29.0 [facility] Comment on above: Performed By: #### L [id number] ####[facility] (BEAKER)[address] [place] [address] Glucose [Mass/Vol] 123 mg/dL High 70-105 [facility] Comment on above: Performed By: #### L [id number] ####[facility] (BEAKER)[address] [place] [address] HCO3 (Bld) [Moles/Vol] 22.1 mmol/L Low 23.0-28.0 [facility] Comment on above: Performed By: #### L [id number] ####[facility] (BEAKER)[address] [place] [address] Hematocrit (Bld) [Volume fraction] 38 % Normal 38-51 [facility] Comment on above: Performed By: #### L [id number] ####[facility] (BEAKER)[address] [place] [address] Hemoglobin (Bld) [Mass/Vol] 12.9 g/dL Normal 12.0-17.0 [facility] Comment on above: Performed By: #### L [id number] ####[facility] ([facility] [place] [address] POCT BASE EXCESS -3.0 mmol/L Low -2.0-3.0 [facility] Comment on above: Performed By: #### L [id number] ####[facility] (BEAKER)[address] [place] [address] POCT IONIZED CALCIUM 1.25 mmol/L Normal 1.12-1.32 [facility] Comment on above: Performed By: #### L [id number] ####[facility] (BEAKER)[address] [place] [address] POCT PCO2 39.3 mmHg Low 41.0-51.0 [facility] Comment on above: Performed By: #### L [id number] ####[facility] (BEAKER)[address] [place] [address] POCT PH 7.36 Normal 7.31-7.41 [facility] Comment on above: Performed By: #### L [id number] ####[facility] (BEAKER)[address] [place] [address] POCT PO2 412 mmHg High 80-105 [facility] Comment on above: Performed By: #### L [id number] ####[facility] (BEAKER)[address] [place] [address] POCT SO2 100 % High 95-98 [facility] Comment on above: Performed By: #### L [id number] ####[facility] ([facility])[address] [place] [address] Potassium [Moles/Vol] 3.8 mmol/L Normal 3.5-4.9 [facility] Comment on above: Performed By: #### L [id number] ####[facility] ([facility])[address] [place] [address] Sodium [Moles/Vol] 140 mmol/L Normal 138.0-146.0 [facility] Comment on above: Performed By: #### L [id number] ####[facility] ([facility])[address] [place] [address] PROTIME-INRon 04-22-2023 INR IN PPP BY COAGULATION ASSAY 1.60 High 0.90-1.10 [facility] Comment on above: Result Comment: ACCC P [...] CHEST 1995;108:231S-246S. Performed By: #### L [id number] ####[facility] ([employer])[address] [place] [address] PROTHROMBIN TIME (PT) IN PPP BY COAGULATION ASSAY 19.1 Seconds High 12.3-14.8 [facility] Comment on above: Performed By: #### L [id number] ####[facility] (BEAKER)[address] [place] [address] INR IN PPP BY COAGULATION ASSAY 1.72 High 0.90-1.10 [facility] Comment on above: Result Comment: ACCC P [...] CHEST 1995;108:231S-246S. Performed By: #### L [id number] ####[facility] ([employer])[address] [place] [address] PROTHROMBIN TIME (PT) IN PPP BY COAGULATION ASSAY 20.2 Seconds High 12.3-14.8 [facility] Comment on above: Performed By: #### L [id number] ####[facility] (BEAKER)[address] [place] [address] INR IN PPP BY COAGULATION ASSAY 2.00 High 0.90-1.10 [facility] Comment on above: Order Comment: Pre-o p diagnosis:NSTEMI (non-ST elevated myocardial infarction) (CMS/HCC) [I21.4]Acute non-ST segment elevation myocardial infarction (CMS/HCC) [I21.4]Coronary artery disease, unspecified vessel or lesion type, unspecified whether angina present, unspecified whether [place] or transplanted heart [I25.10] Result Comment: ACCC [...] CHEST 1995;108:231S-246S. Performed By: #### L [id number] ####[facility] (BEAKER)[address] [place] [address] PROTHROMBIN TIME (PT) IN PPP BY COAGULATION ASSAY 22.8 Seconds High 12.3-14.8 [facility] Comment on above: Order Comment: Pre-o p diagnosis:NSTEMI (non-ST elevated myocardial infarction) (CMS/HCC) [I21.4]Acute non-ST segment elevation myocardial infarction (CMS/HCC) [I21.4]Coronary artery disease, unspecified vessel or lesion type, unspecified whether angina present, unspecified whether [place] or transplanted heart [I25.10] Performed By: #### L [id number] ####[facility] ([facility])[address] [place] [address] 36on 04-21-2023 36 Called patient and l eft voicemail. Updated NPO after midnight and not to take any medications in the AM. Surgery scheduled for 0730am. Normal [facility] ANESon 04-21-2023 ANES Normal [facility] Telephoneon 04-21-2023 Telephone [phone] Gui Ortiz 1955 M Date Provider Department Gray 04/21/2023 [facility] Family History Family history unknown: Yes [facility] APTTon 04-09-2023 ACTIVATED PARTIAL THROMBOPLASTIN TIME IN PPP BY COAGULATION ASSAY 34.7 Seconds Normal 25.0-35.0 [facility] Comment on above: Result Comment: Clin ical significance of the APTT is questionable in the presence of heparin. Performed By: #### L [id number] ####[facility] ([facility])[address] [place] [address] BASIC METABOLIC PANELon 03-18 Anion gap [Moles/Vol] 11 mmol/L Normal 7-20 [facility] Comment on above: Performed By: #### L [id number] ####[facility] ([facility])[address] [place] [address] Calcium [Mass/Vol] 9.8 mg/dL Normal 8.6-10.3 [facility] Comment on above: Performed By: #### L [id number] ####[facility] (BEAKER)[address] [place] [place] [address] Chloride [Moles/Vol] 105 mmol/L Normal 98-107 [facility] Comment on above: Performed By: #### L [id number] ####[facility] (BEAKER)[address] [place] [address] CO2 [Moles/Vol] 25 mmol/L Normal 21-31 [facility] Comment on above: Performed By: #### L [id number] ####[facility] ([facility])[address] [place] [address] Creatinine [Mass/Vol] 0.91 mg/dL Normal 0.70-1.30 [facility] Comment on above: Performed By: #### L [id number] ####[facility] ([facility])[address] [place] [address] GLOMERULAR FILTRATION RATE ML/MIN/1.73 SQ M.PREDICTED 91.2 mL/min/1.73m*2 Normal >60.0 [facility] Comment on above: Result Comment: The [facility]???s estimated glomerular filtration rate (eGFR) will no [...] of individuals. Performed By: #### L [id number] ####[facility] ([facility])[address] [place] [address] Glucose [Mass/Vol] 105 mg/dL High 70-100 [facility] Comment on above: Performed By: #### L [id number] ####[facility] ([facility])[address] [place] [address] Potassium [Moles/Vol] 3.9 mmol/L Normal 3.5-5.1 [facility] Comment on above: Performed By: #### L [id number] ####[facility] ([facility])[address] [place] [address] Sodium [Moles/Vol] 137 mmol/L Normal 136-145 [facility] Comment on above: Performed By: #### L [id number] ####[facility] ([facility])[address] [place] [address] Urea nitrogen [Mass/Vol] 15 mg/dL Normal 7-25 [facility] Comment on above: Performed By: #### L [id number] ####[facility] ([facility])[address] [place] [address] UREA NITROGEN/CREATININ E (MASS RATIO) IN SER/PLAS 16.5 Normal [facility] Comment on above: Performed By: #### L [id number] ####[facility] ([facility])[address] [place] [address] CBC WITH AUTO DIFFERENTIALon 04-09-2023 Basophils (Bld) [#/Vol] 0.05 10*3/uL Normal 0.00-0.20 [facility] Comment on above: Performed By: #### L [id number] ####[facility] ([facility])[address] [place] [address] Basophils/100 WBC (Bld) 0.8 % Normal 0.0-1.0 [facility] Comment on above: Performed By: #### L [id number] ####[facility] ([facility])[address] [place] [address] Eosinophils (Bld) [#/Vol] 0.09 10*3/uL Normal 0.00-0.50 [facility] Comment on above: Performed By: #### L [id number] ####[facility] ([facility])[address] [place] [address] Eosinophils/100 WBC (Bld) 1.4 % Normal 0.0-6.0 [facility] Comment on above: Performed By: #### L [id number] ####[facility] ([facility])[address] [place] [address] Erythrocyte distribution width (RBC) [Ratio] 13.1 % Normal 11.5-15.0 [facility] Comment on above: Performed By: #### L [id number] ####[facility] (BEAKER)[address] [place] [address] ERYTHROCYTE MEAN CORPUSCULAR HEMOGLOBIN CONCENTRATION (G/DL) BY AUTOMATED 33.3 g/dL Normal 32.0-35.0 [facility] Comment on above: Performed By: #### L [id number] ####[facility] (BEAKER)[address] [place] [address] Hematocrit (Bld) [Volume fraction] 43.0 % Normal 39.0-55.0 [facility] Comment on above: Performed By: #### L [id number] ####[facility] ([facility])[address] [place] [address] Hemoglobin (Bld) [Mass/Vol] 14.3 g/dL Normal 13.0-17.0 [facility] Comment on above: Performed By: #### L [id number] ####[facility] ([facility])[address] [place] [address] Immature granulocytes (Bld) [#/Vol] 0.03 10*3/uL Normal 0.00-0.20 [facility] Comment on above: Performed By: #### L [id number] ####[facility] ([facility])[address] [place] [address] Immature granulocytes/100 WBC (Bld) 0.5 % Normal 0.0-1.0 [facility] Comment on above: Performed By: #### L [id number] ####[facility] (BEAKER)[address] [place] [address] Lymphocytes (Bld) [#/Vol] 2.46 10*3/uL Normal 1.20-4.00 [facility] Comment on above: Performed By: #### L [id number] ####[facility] (BEAKER)[address] [place] [address] Lymphocytes/100 WBC (Bld) 38.2 % Normal 20.0-45.0 [facility] Comment on above: Performed By: #### L [id number] ####[facility] (BEAKER)[address] [place] [address] MCH (RBC) [Entitic mass] 30.4 pg Normal 27.0-33.0 [facility] Comment on above: Performed By: #### L [id number] ####[facility] (BEAKER)[address] [place] [address] MCV (RBC) [Entitic vol] 91.3 fL Normal 82.0-98.0 [facility] Comment on above: Performed By: #### L [id number] ####[facility] (BEAKER)[address] [place] [address] Monocytes (Bld) [#/Vol] 0.51 10*3/uL Normal 0.10-1.00 [facility] Comment on above: Performed By: #### L [id number] ####[facility] (BEAKER)[address] [place] [address] Monocytes/100 WBC (Bld) 7.9 % Normal 5.0-12.0 [facility] Comment on above: Performed By: #### L [id number] ####[facility] (BEAKER)[address] [place] [address] Neutrophils (Bld) [#/Vol] 3.30 10*3/uL Normal 1.60-7.60 [facility] Comment on above: Performed By: #### L [id number] ####[facility] (BEAKER)[address] [place] [address] Neutrophils/100 WBC (Bld) 51.2 % Normal 40.0-72.0 [facility] Comment on above: Performed By: #### L [id number] ####[facility] (BEAKER)[address] [place] [address] NRBC (PER 100 WBCS) BY AUTOMATED COUNT 0.0 % Normal 0 [facility] Comment on above: Performed By: #### L [id number] ####[facility] (BEAKER)[address] [place] [address] PLATELETS (10*3/UL) IN BLOOD AUTOMATED COUNT 281 10*3/uL Normal 150-400 [facility] Comment on above: Performed By: #### L [id number] ####[facility] (BEAKER)[address] [place] [address] RBC (Bld) [#/Vol] 4.71 10*6/uL Normal 4.20-5.70 [facility] Comment on above: Performed By: #### L [id number] ####[facility] (BEAKER)[address] [address] WBC (Bld) [#/Vol] 6.44 10*3/uL Normal 4.00-10.60 [facility] Comment on above: Performed By: #### L [id number] ####[facility] ([facility])[address] [address] ETHANOLon 04-09-2023 ETHANOL (MG/DL) IN SER/PLAS <10 Normal [facility] Comment on above: Result Comment: No E thanol detected Performed By: #### L [id number] ####[facility] ([facility])[address] [address] ETHANOL CALCULATED (%) Normal [facility] Comment on above: Performed By: #### L [id number] ####[facility] ([facility])[address] [address] Follow-Upon 04-09-2023 Follow-Up Normal [facility] HEMOGLOBIN A1Con 04-09-2023 Glucose [Mass/Vol] 128 mg/dL Normal [facility] Comment on above: Performed By: #### L [id number] ####[facility] ([facility])[address] [address] HbA1c (Bld) [Mass fraction] 6.1 % High 4.0-6.0 [facility] Comment on above: Performed By: #### L [id number] ####[facility] (BEAKER)[address] [address] HPon 04-09-2023 HP Normal [facility] Labon 04-09-2023 Lab [id number] Gui Ortiz 1955 M Date Provider Department Gray 04/09/2023 2245-[facility] OPD LAB RESOURCE [facility] OPD [facility] C Family History Family history unknown: Yes Normal [facility] MRSA/MSSA DNA NASALon 2022 MRSA DNA Negative Normal Negative [facility] Comment on above: Order Comment: Testi ng [...] preclude nasal colonization. Performed By: #### L [id number] ####[facility] (BEAKER)[address] [place] [address] MSSA DNA Negative Normal Negative [facility] Comment on above: Order Comment: Testi ng [...] preclude nasal colonization. Performed By: #### L [id number] ####[facility] (BEAKER)[address] [place] [address] Orders Onlyon 04-09-2023 Orders Only [id number] Gui Ortiz 1955 M Date Provider Department [place] 04/09/2023 A[facility] Family History Family history unknown: Yes Normal [facility] PROTIME-INRon 04-09-2023 INR IN PPP BY COAGULATION ASSAY 1.00 Normal 0.90-1.10 [facility] Comment on above: Result Comment: ACCC P [...] CHEST 1995;108:231S-246S. Performed By: #### L [id number] ####[facility] ([facility])[address] [facility] [place] [address] PROTHROMBIN TIME (PT) IN PPP BY COAGULATION ASSAY 13.2 Seconds Normal 12.3-14.8 [facility] Comment on above: Performed By: #### L [id number] ####[facility] ([facility])[address] [facility] [address] TOXICOLOGY PANEL URINEon AMPHETAMINE+METHAM PHETAMINE SCREEN (PRESENCE) IN URINE Negative Normal Negative [facility] Comment on above: Performed By: #### L [id number] ####[facility] ([facility])[address] [facility] [place] [address] BARBITURATES PRESENCE IN URINE BY SCREEN METHOD Negative Normal Negative [facility] Comment on above: Performed By: #### L [id number] ####[facility] ([facility])[address] [place] [address] Benzodiazepines Ql (U) Negative Normal Negative [facility] Comment on above: Performed By: #### L [id number] ####[facility] ([facility])[address] [place] [address] CANNABINOID (PRESENCE) IN URINE BY SCREEN METHOD Negative Normal Negative [facility] Comment on above: Performed By: #### L [id number] ####[facility] ([facility])[address] [place] [address] Cocaine Ql (U) Negative Normal Negative [facility] Comment on above: Performed By: #### L [id number] ####[facility] ([facility])[address] [place] [address] METHADONE (PRESENCE) IN URINE BY SCREEN METHOD Normal [facility] Comment on above: Result Comment: Meth adone being sent out. Results to follow. Performed By: #### L [id number] ####[facility] ([facility])[address] [place] [address] OPIATES (PRESENCE) IN URINE BY SCREEN METHOD Negative Normal Negative [facility] Comment on above: Performed By: #### L [id number] ####[facility] ([facility])[address] [place] [address] PHENCYCLIDINE PRESENCE IN URINE BY SCREEN METHOD Negative Normal Negative [facility] Comment on above: Performed By: #### L [id number] ####[facility] ([facility])[address] [place] [address] Propoxyphene Screen Ql (U) Negative Normal Negative [facility] Comment on above: Performed By: #### L [id number] ####[facility] ([facility])[address] [place] [address] TRICYCLIC ANTIDEPRESSANTS (PRESENCE) IN URINE Negative Normal Negative [facility] Comment on above: Performed By: #### L [id number] ####[facility] ([facility])[address] [place] [address] TYPE AND SCREENon 04-09-2023 AB SCREEN Negative Normal [facility] Comment on above: Performed By: #### L [id number] ####[facility]OD [facility], ABO group Nom (Bld) O Normal [facility] Comment on above: Performed By: #### L [id number] ####[facility]OD [facility], RH TYPE IN BLOOD Positive Normal [facility] Comment on above: Performed By: #### L [id number] ####[facility], URINALYSISon 04-09-2023 BILIRUBIN, TOTAL PRESENCE IN URINE Negative Normal Negative [facility] Comment on above: Performed By: #### L [id number] ####[facility] ([facility])[address] [place] [address] Clarity (U) Clear Normal Clear [facility] Comment on above: Performed By: #### L [id number] ####[facility] ([facility])[address] [place] [address] Color (U) Yellow Normal Yellow [facility] Comment on above: Performed By: #### L [id number] ####[facility] ([facility])[address] [place] [address] Glucose (U) [Mass/Vol] Negative Normal Negative [facility] Comment on above: Performed By: #### L [id number] ####[facility] ([facility])[address] [place] [address] HEMOGLOBIN PRESENCE IN URINE Small Abnormal Negative [facility] Comment on above: Performed By: #### L [id number] ####[facility] ([facility])[address] [place] [address] Ketones Ql (U) Negative Normal Negative [facility] Comment on above: Performed By: #### L [id number] ####[facility] ([facility])[address] [place] [address] LEUKOCYTE ESTERASE PRESENCE IN URINE BY TEST STRIP Negative Normal Negative [facility] Comment on above: Performed By: #### L [id number] ####[facility] ([facility])[address] [place] [address] NITRITE PRESENCE IN URINE Negative Normal Negative [facility] Comment on above: Performed By: #### L [id number] ####[facility] ([facility])[address] [place] [address] pH (U) 6.0 [pH] Normal 5.0-8.0 [facility] Comment on above: Performed By: #### L [id number] ####[facility] ([facility] [place] [address] Protein (U) [Mass/Vol] Negative Normal Negative [facility] Comment on above: Performed By: #### L [id number] ####[facility] ([facility])[address] [place] [address] Specific gravity (U) [Rel density] 1.012 Low 1.015-1.020 [facility] Comment on above: Performed By: #### L [id number] ####[facility] ([facility])[address] [place] [address] URINALYSIS MICROSCOPICon CASTS IN URINE Normal [facility] Comment on above: Performed By: #### L [id number] ####[facility] ([facility])[address] [place] [address] CRYSTALS IN URINE Normal [facility] Comment on above: Performed By: #### L [id number] ####[facility] ([facility])[address] [place] [address] RBC (#/HPF) IN URINE SEDIMENT 3-5 Abnormal None Seen [facility] Comment on above: Performed By: #### L [id number] ####[facility] ([facility])[address] [place] [address] SQUAMOUS EPITHELIAL CELLS (#/HPF) IN URINE SEDIMENT None Seen Normal None Seen, Occasional [facility] Comment on above: Performed By: #### L [id number] ####[facility] ([facility])[address] [place] [address] WBC (LEUKOCYTE) (#/HPF) IN URINE SEDIMENT None Seen Normal None Seen [facility] Comment on above: Performed By: #### L [id number] ####[facility] ([facility] [place] [address] Documentationon 04-01-2023 Documentation Normal [facility] 30on 03-23-2023 30 Normal [facility] 30 Normal [facility] ANTI-XA (HEPARIN LEVEL)on HEPARIN UNFRACTIONATED (U/ML) IN PPP BY CHROMOGENIC METHOD <0.10 Invalid Interpretation Code 0.3-0.7 [facility] [facility] Comment on above: Order Comment: Check anti-Xa level every 6 hours while on heparin infusion, or per protocol. Result Comment: [place] roxaban and Apixaban will interfere with the anti Xa assay used to monitor UFH and LMWH. Performed By: #### L [id number] ####[facility] ([facility])[address] [place] [address] BASIC METABOLIC PANELon 10-0 Anion gap [Moles/Vol] 11 mmol/L Normal 7-20 [facility] Comment on above: Performed By: #### L [id number] ####[facility] ([facility] [place] [address] Calcium [Mass/Vol] 9.1 mg/dL Normal 8.6-10.3 [facility] Comment on above: Performed By: #### L [id number] ####[facility] ([facility] [place] [address] Chloride [Moles/Vol] 107 mmol/L Normal 98-107 [facility] Comment on above: Performed By: #### L [id number] ####[facility] ([facility])[address] [place] [address] CO2 [Moles/Vol] 23 mmol/L Normal 21-31 [facility] Comment on above: Performed By: #### L [id number] ####[facility] ([facility])[address] [place] [address] Creatinine [Mass/Vol] 0.85 mg/dL Normal 0.70-1.30 [facility] Comment on above: Performed By: #### L [id number] ####[facility] ([facility])[address] [facility] [place] [address] GLOMERULAR FILTRATION RATE ML/MIN/1.73 SQ M.PREDICTED 94.1 mL/min/1.73m*2 Normal >60.0 [facility] Comment on above: Result Comment: The [facility]???s estimated glomerular filtration rate (eGFR) will no [...] of individuals. Performed By: #### L [id number] ####[facility] ([facility])[address] [facility] [place] [address] Glucose [Mass/Vol] 103 mg/dL High 70-100 [facility] Comment on above: Performed By: #### L [id number] ####[facility] ([facility])[address] [facility] [place] [address] Potassium [Moles/Vol] 3.8 mmol/L Normal 3.5-5.1 [facility] Comment on above: Performed By: #### L [id number] ####[facility] ([facility])[address] [facility] [place] [address] Sodium [Moles/Vol] 137 mmol/L Normal 136-145 [facility] Comment on above: Performed By: #### L [id number] ####[facility] ([facility])[address] [facility] [place] [address] Urea nitrogen [Mass/Vol] 12 mg/dL Normal 7-25 [facility] Comment on above: Performed By: #### L [id number] ####[facility] ([facility])[address] [place] [address] UREA NITROGEN/CREATININ E (MASS RATIO) IN SER/PLAS 14.1 Normal [facility] Comment on above: Performed By: #### L [id number] ####[facility] ([facility])[address] [place] [address] CBCon 03-23-2023 Erythrocyte distribution width (RBC) [Ratio] 13.0 % Normal 11.5-15.0 [facility] Comment on above: Performed By: #### L [id number] ####[facility] ([facility]ER)[address] [address] ERYTHROCYTE MEAN CORPUSCULAR HEMOGLOBIN CONCENTRATION (G/DL) BY AUTOMATED 34.5 g/dL Normal 32.0-35.0 [facility] Comment on above: Performed By: #### L [id number] ####[facility] ([facility])[address] [address] Hematocrit (Bld) [Volume fraction] 41.4 % Normal 39.0-55.0 [facility] Comment on above: Performed By: #### L [id number] ####[facility] ([facility])[address] [address] Hemoglobin (Bld) [Mass/Vol] 14.3 g/dL Normal 13.0-17.0 [facility] Comment on above: Performed By: #### L [id number] ####[facility] ([facility])[address] [place] [address] MCH (RBC) [Entitic mass] 30.4 pg Normal 27.0-33.0 [facility] Comment on above: Performed By: #### L [id number] ####[facility] ([facility])[address] [place] [address] MCV (RBC) [Entitic vol] 87.9 fL Normal 82.0-98.0 [facility] Comment on above: Performed By: #### L [id number] ####[facility] ([facility])[address] [place] [address] PLATELETS (10*3/UL) IN BLOOD AUTOMATED COUNT 243 10*3/uL Normal 150-400 [facility] Comment on above: Performed By: #### L [id number] ####[facility] ([facility])[address] [place] [address] RBC (Bld) [#/Vol] 4.71 10*6/uL Normal 4.20-5.70 [facility] Comment on above: Performed By: #### L [id number] ####[facility] ([facility])[address] [place] [address] WBC (Bld) [#/Vol] 6.84 10*3/uL Normal 4.00-10.60 [facility] Comment on above: Performed By: #### L [id number] ####[facility] ([facility])[address] [place] [address] CT HEAD WO IV CONTRASTon CT HEAD WO IV CONTRAST Normal [facility] CTA CHEST W AND/OR WO IV CON TRASTon 03-23-2023 CTA CHEST W AND/OR WO IV CONTRAST Normal [facility] DSon 03-23-2023 DS Normal [facility] 30on 03-22-2023 30 Normal [facility] 30 Normal [facility] 30 Normal [facility] ANESon 03-22-2023 ANES Normal [facility] APTTon 03-22-2023 ACTIVATED PARTIAL THROMBOPLASTIN TIME IN PPP BY COAGULATION ASSAY 36.2 Seconds High 25.0-35.0 [facility] Comment on above: Order Comment: Basel ine aPTT before initiating heparin infusion. Result Comment: Clin ical significance of the APTT is questionable in the presence of heparin. Performed By: #### L [id number] ####[facility] ([facility])[address] [place] [address] BASIC METABOLIC PANELon 10-0 Anion gap [Moles/Vol] 9 mmol/L Normal 7-20 [facility] Comment on above: Performed By: #### L [id number] ####[facility] ([facility])[address] [place] [address] Calcium [Mass/Vol] 8.9 mg/dL Normal 8.6-10.3 [facility] Comment on above: Performed By: #### L [id number] ####[facility] ([facility])[address] [place] [address] Chloride [Moles/Vol] 111 mmol/L High 98-107 [facility] Comment on above: Performed By: #### L [id number] ####[facility] ([facility])[address] [place] [address] CO2 [Moles/Vol] 22 mmol/L Normal 21-31 [facility] Comment on above: Performed By: #### L [id number] ####[facility] ([facility])[address] [place] [address] Creatinine [Mass/Vol] 0.79 mg/dL Normal 0.70-1.30 [facility] Comment on above: Performed By: #### L [id number] ####[facility] ([facility])[address] [place] [address] GLOMERULAR FILTRATION RATE ML/MIN/1.73 SQ M.PREDICTED 96.2 mL/min/1.73m*2 Normal >60.0 [facility] Comment on above: Result Comment: The [facility]???s estimated glomerular filtration rate (eGFR) will no [...] of individuals. Performed By: #### L [id number] ####[facility] ([facility])[address] [place] [address] Glucose [Mass/Vol] 112 mg/dL High 70-100 [facility] Comment on above: Performed By: #### L [id number] ####[facility] ([facility])[address] [place] [address] Potassium [Moles/Vol] 3.9 mmol/L Normal 3.5-5.1 [facility] Comment on above: Performed By: #### L [id number] ####[facility] ([facility])[address] [place] [address] Sodium [Moles/Vol] 138 mmol/L Normal 136-145 [facility] Comment on above: Performed By: #### L [id number] ####[facility] ([facility])[address] [place] [address] Urea nitrogen [Mass/Vol] 12 mg/dL Normal 7-25 [facility] Comment on above: Performed By: #### L [id number] ####[facility] ([facility])[address] [place] [address] UREA NITROGEN/CREATININ E (MASS RATIO) IN SER/PLAS 15.2 Normal [facility] Comment on above: Performed By: #### L [id number] ####[facility] ([facility])[address] [place] [address] CBCon 03-22-2023 Erythrocyte distribution width (RBC) [Ratio] 13.2 % Normal 11.5-15.0 [facility] Comment on above: Performed By: #### L [id number] ####[facility] ([facility])[address] [place] [address] ERYTHROCYTE MEAN CORPUSCULAR HEMOGLOBIN CONCENTRATION (G/DL) BY AUTOMATED 33.7 g/dL Normal 32.0-35.0 [facility] Comment on above: Performed By: #### L [id number] ####[facility] ([facility])[address] [place] [address] Hematocrit (Bld) [Volume fraction] 40.3 % Normal 39.0-55.0 [facility] Comment on above: Performed By: #### L [id number] ####[facility] ([facility])[address] [address] Hemoglobin (Bld) [Mass/Vol] 13.6 g/dL Normal 13.0-17.0 [facility] Comment on above: Performed By: #### L [id number] ####[facility] ([facility])[address] [place] [address] MCH (RBC) [Entitic mass] 30.5 pg Normal 27.0-33.0 [facility] Comment on above: Performed By: #### L [id number] ####[facility] ([facility])[address] [place] [address] MCV (RBC) [Entitic vol] 90.4 fL Normal 82.0-98.0 [facility] Comment on above: Performed By: #### L [id number] ####[facility] ([facility])[address] [place] [address] PLATELETS (10*3/UL) IN BLOOD AUTOMATED COUNT 241 10*3/uL Normal 150-400 [facility] Comment on above: Performed By: #### L [id number] ####[facility] ([facility])[address] [place] [address] RBC (Bld) [#/Vol] 4.46 10*6/uL Normal 4.20-5.70 [facility] Comment on above: Performed By: #### L [id number] ####[facility] ([facility])[address] [place] [address] WBC (Bld) [#/Vol] 6.03 10*3/uL Normal 4.00-10.60 [facility] Comment on above: Performed By: #### L [id number] ####[facility] ([facility])[address] [place] [address] CONSULTon 03-22-2023 CONSULT Normal [facility] CONSULT Normal [facility] CT CHEST WO IV CONTRASTon CT CHEST WO IV CONTRAST Normal [facility] HEMOGLOBIN A1Con 03-22-2023 Glucose [Mass/Vol] 126 mg/dL Normal [facility] Comment on above: Performed By: #### L [id number] ####[facility] ([facility])[address] [place] [address] HbA1c (Bld) [Mass fraction] 6.0 % Normal 4.0-6.0 [facility] Comment on above: Performed By: #### L [id number] ####[facility] ([facility])[address] [place] [address] HPon 03-22-2023 HP H&P reviewed. The laurie putnam was examined and there are no changes to the H&P. Will proceed with coronary angiogram for chest pain and elevated high sensitivity troponin. Normal [facility] LIPID PANELon 03-22-2023 CHOL/HDL 4.9 mg/dL Normal [facility] Comment on above: Performed By: #### L [id number] ####[facility] ([facility])[address] [place] [address] Cholesterol [Mass/Vol] 138 mg/dL Normal 120-200 [facility] Comment on above: Performed By: #### L [id number] ####[facility] ([facility])[address] [place] [address] Magnesium [Mass/Vol] 107 mg/dL Normal 40-149 [facility] Comment on above: Result Comment: TRIG LYCERIDE REFERENCE RANGE:20 YEARS AND OLDER CARDIOVASCULAR RISKLESS THAN 150 mg/dL LOW [id number] TO 199 mg/dL BORDERLINE [id number] mg/dL AND GREATER HIGH RISK Performed By: #### L [id number] ####[facility] ([facility])[address] [facility] [address] Magnesium [Mass/Vol] 89 mg/dL Normal 0-160 [facility] Comment on above: Performed By: #### L [id number] ####[facility] ([facility])[address] [facility] [address] Magnesium [Mass/Vol] 28 mg/dL Normal 23-92 [facility] Comment on above: Performed By: #### L [id number] ####[facility] ([facility])[address] [place] [address] NON HDL CHOL. (LDL+VLDL) 110 Normal [facility] Comment on above: Performed By: #### L [id number] ####[facility] ([facility])[address] [facility] [address] TOTAL VLDL-C 21 mg/dL Normal 0-40 [facility] Comment on above: Performed By: #### L [id number] ####[facility] ([facility])[address] [place] [address] MRSA/MSSA DNA NASALon 2022 MRSA DNA Negative Normal Negative [facility] Comment on above: Order Comment: Testi ng [...] preclude nasal colonization. Performed By: #### L [id number] ####[facility] ([facility])[address] [place] [address] MSSA DNA Negative Normal Negative [facility] Comment on above: Order Comment: Testi ng [...] preclude nasal colonization. Performed By: #### L [id number] ####[facility] ([facility])[address] [place] [address] TROPONIN Ion 03-22-2023 Troponin I.cardiac [Mass/Vol] 0.03 ng/mL Normal 0.00-0.04 [facility] Comment on above: Performed By: #### L [id number] ####[facility] ([facility])[address] [place] [address] Troponin I.cardiac [Mass/Vol] 0.04 ng/mL Normal 0.00-0.04 [facility] Comment on above: Performed By: #### L [id number] ####[facility] ([facility])[address] [place] [address] TSH3 REFLEX TO FT4on 023 THYROTROPIN (MIU/L) IN SER/PLAS BY DETECTION LIMIT <= 0.05 MIU/L 2.07 mIU/L Normal 0.34-5.60 [facility] Comment on above: Performed By: #### L [id number] ####[facility] ([facility])[address] [place] [address] URINALYSISon 03-22-2023 BILIRUBIN, TOTAL PRESENCE IN URINE Negative Normal Negative [facility] Comment on above: Performed By: #### L [id number] ####[facility] ([facility])[address] [place] [address] Clarity (U) Clear Normal Clear [facility] Comment on above: Performed By: #### L [id number] ####[facility] ([facility])[address] [place] [address] Color (U) Yellow Normal Yellow [facility] Comment on above: Performed By: #### L [id number] ####[facility] ([facility])[address] [place] [address] Glucose (U) [Mass/Vol] Negative Normal Negative [facility] Comment on above: Performed By: #### L [id number] ####[facility] ([facility])[address] [place] [address] HEMOGLOBIN PRESENCE IN URINE Small Abnormal Negative [facility] Comment on above: Performed By: #### L [id number] ####[facility] ([facility])[address] [place] [address] Ketones Ql (U) Negative Normal Negative [facility] Comment on above: Performed By: #### L [id number] ####[facility] ([facility])[address] [place] [address] LEUKOCYTE ESTERASE PRESENCE IN URINE BY TEST STRIP Negative Normal Negative [facility] Comment on above: Performed By: #### L [id number] ####[facility] ([facility])[address] [place] [address] NITRITE PRESENCE IN URINE Negative Normal Negative [facility] Comment on above: Performed By: #### L [id number] ####[facility] ([facility])[address] [place] [address] pH (U) 6.0 [pH] Normal 5.0-8.0 [facility] Comment on above: Performed By: #### L [id number] ####[facility] ([facility])[address] [place] [address] Protein (U) [Mass/Vol] Negative Normal Negative [facility] Comment on above: Performed By: #### L [id number] ####[facility] ([facility])[address] [place] [address] Specific gravity (U) [Rel density] 1.049 High 1.015-1.020 [facility] Comment on above: Performed By: #### L [id number] ####[facility] ([facility])[address] [place] [address] URINALYSIS MICROSCOPICon CASTS IN URINE Normal [facility] Comment on above: Performed By: #### L [id number] ####[facility] ([facility])[address] [place] [address] CRYSTALS IN URINE Normal [facility] Comment on above: Performed By: #### L [id number] ####[facility] ([facility])[address] [place] [address] RBC (#/HPF) IN URINE SEDIMENT 6-10 Abnormal None Seen [facility] Comment on above: Performed By: #### L [id number] ####[facility] ([facility])[address] [place] [address] SQUAMOUS EPITHELIAL CELLS (#/HPF) IN URINE SEDIMENT Few Abnormal None Seen, Occasional [facility] Comment on above: Performed By: #### L [id number] ####[facility] ([facility])[address] [place] [address] WBC (LEUKOCYTE) (#/HPF) IN URINE SEDIMENT None Seen Normal None Seen [facility] Comment on above: Performed By: #### L [id number] ####[facility] ([facility])[address] [place] [address] 30on 03-21-2023 30 Normal [facility] D-DIMER, QUANTITATIVEon 10-0 5-2023 FIBRIN D-DIMER (UG/L FEU) IN PLATELET POOR PLASMA 0.36 mcg/mL FEU Normal 0.27-0.49 [facility] Comment on above: Order Comment: D-Dim er values of less than 0.50 ug/ml (FEU) are considered to be a negative predictor of thrombosis. However, the D-Dimer result should be used in conjunction with pretest probability and should not be used alone to diagnose a thrombotic event. 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 [address] Additional Instructions: w/PSA Patient Education Documentation recorded [...] Protein Urine Dipstick: Negative (01/29/23 14:37:00) Specific [place] Urine Dipstick: 1.025 (01/29/23 14:37:00) Urine Appearance Urine Dipstick: Clear (01/29/23 14:37:00) Urine Color Urine Dipstick: Yellow (01/29/23 14:37:00) pH Urine Dips (more content not included)... Normal [facility] Comment on above: Result Comment: Elec [...] by: GARCIA GALLEGOS Date: 2022-08-04 17:12 Normal [facility] CT LUNG CANCER SCREENINGon 0 [...] DAVID EL Date: 2022-07-26 07:42 Normal [facility] INSULINon 07-26-2022 Insulin 4.0 uIU/mL Normal 2.6-24.9 [facility] Comment on above: Performed By: #### I NSULIN #### [facility] [address] [place] [address] Dr. Rehana Martinez CBC AUTO DIFFon 07-25-2022 BASO # 0.0 103/ul Normal 0.0-0.1 [facility] Comment on above: Performed By: #### C BC #### [facility] [address] [place] [address] Dr. Rehana Martinez Basophils/100 WBC (Bld) 0.2 % Normal 0.2-2.0 [facility] Comment on above: Performed By: #### C BC #### [facility] [address] [place] [address] Dr. Rehana Martinez EO # 0.1 103/ul Normal 0.0-0.7 [facility] Comment on above: Performed By: #### C BC #### [facility] [address] [place] [address] Dr. Rehana Martinez Eosinophils/100 WBC (Bld) 0.5 % Critically low 0.9-7.0 [facility] Comment on above: Performed By: #### C BC #### [facility] [address] [place] [address] Dr. Rehana Martinez Erythrocyte distribution width (RBC) [Ratio] 13.6 % Normal 11.0-15.0 [facility] Comment on above: Performed By: #### C BC #### [facility] [address] [place] [address] Dr. Rehana Martinez Hematocrit (Bld) [Volume fraction] 45.6 % Normal 42.0-54.0 [facility] Comment on above: Performed By: #### C BC #### [facility] [address] [place] [address] Dr. Rehana Martinez Hemoglobin (Bld) [Mass/Vol] 15.1 g/dL Normal 14.0-18.0 [facility] Comment on above: Performed By: #### C BC #### [facility] [address] [place] [address] Dr. Rehana Martinez IG # 0.04 10e3/ul Critically high 0.00-0.03 [facility] Comment on above: Performed By: #### C BC #### [facility] [address] [place] [address] Dr. Rehana Martinez IG % 0.4 % Normal 0.0-0.5 [facility] Comment on above: Performed By: #### C BC #### [facility] [address] [place] [address] Dr. Rehana Martinez LYMPH # 1.7 103/ul Normal 1.2-3.8 [facility] Comment on above: Performed By: #### C BC #### [facility] [address] [place] [address] Dr. Rehana Martinez Lymphocytes/100 WBC (Bld) 17.9 % Critically low 20.5-60.0 [facility] Comment on above: Performed By: #### C BC #### [facility] [address] [place] [address] Dr. Rehana Martinez MANUAL DIFF REQ NO Normal [facility] Comment on above: Performed By: #### C BC #### [facility] [address] [place] [address] Dr. Rehana Martinez MCH (RBC) [Entitic mass] 30.8 pg Normal 25.9-34.0 [facility] Comment on above: Performed By: #### C BC #### [facility] [address] [address] [address] Rehana Martinez MCHC (RBC) [Mass/Vol] 33.1 g/dL Normal 29.9-35.2 [facility] Comment on above: Performed By: #### C BC #### [facility] [address] [address] [address] Rehana Martinez MCV (RBC) [Entitic vol] 92.9 fL Normal 80.0-94.0 [facility] Comment on above: Performed By: #### C BC #### [facility] [address] [address] [address] Rehana Martinez MONO # 1.1 103/ul Critically high 0.3-0.8 [facility] Comment on above: Performed By: #### C BC #### [facility] [address] [address] [address] Rehana Martinez Monocytes/100 WBC (Bld) 11.2 % Normal 1.7-12.0 [facility] Comment on above: Performed By: #### C BC #### [facility] [address] [address] [address] Reahna Martinez NEUT # 6.7 103/ul Critically high 1.4-6.5 [facility] Comment on above: Performed By: #### C BC #### [facility] [address] [address] [address] Rehana Martinez Neutrophils/100 WBC (Bld) 69.8 % Normal 43.0-75.0 [facility] Comment on above: Performed By: #### C BC #### [facility] [address] [address] [address] Rehana Martinez Platelet mean volume (Bld) [Entitic vol] 8.7 fL Critically low 9.5-13.5 [facility] Comment on above: Performed By: #### C BC #### [facility] [address] [address] [address] Rehana Martinez PLT 226 103/ul Normal 150-450 [facility] Comment on above: Performed By: #### C BC #### [facility] [address] [address] [address] Rehana Martinez RBC 4.91 106/ul Normal 4.70-6.10 [facility] Comment on above: Performed By: #### C BC #### [facility] [address] [address] [address] Rehana Martinez WBC 9.6 103/ul Normal 4.0-11.0 [facility] Comment on above: Performed By: #### C BC #### [facility] [address] [address] [address] Rehana Martinez FREE THYROXINE INDEX T7on FTI 3.37 Normal 1.30-4.50 [facility] Comment on above: Performed By: #### L IPID, CMP, TSH, URIC, T7 ####[facility] [address] [address]Dr. Rehana Martinez T3U 37.0 % Normal 33.0-40.0 [facility] Comment on above: Performed By: #### L IPID, CMP, TSH, URIC, T7 ####[facility] [address] [address]Dr. Rehana Martinez T4 [Mass/Vol] 9.10 ug/dL Normal 4.50-12.10 [facility] Comment on above: Performed By: #### L IPID, CMP, TSH, URIC, T7 ####[facility] [address] [id number]. Rehana Martinez GLYCOHEMOGLOBIN A1Con 2022 ADA RECOMMENDATION SEE BELOW Normal [facility] Comment on above: Result Comment: ADA RECOMMENDED LIMIT 4.0 - 6.0 ADA THERAPEUTIC TARGET < 7.0 ACTION SUGGESTED > 7.0 Performed By: #### A 1C #### [facility] [address] [address] [address] Rehana Martinez Glucose [Mass/Vol] 128 mg/dL Normal [facility] Comment on above: Performed By: #### A 1C #### [facility] [address] [place], [place] [address] Dr. Rehana Martinez HbA1c (Bld) [Mass fraction] 6.1 % Normal 4.5-6.2 [facility] Comment on above: Performed By: #### A 1C #### [facility] [address] [place], [place] [address] Dr. Rehana Martinez LIPID PROFILEon 07-25-2022 CHOL-HDL RATIO NORM SEE BELOW Normal [facility] Comment on above: Result Comment: 3.3 - 4.4 LOW RISK 4.4 - 7.1 AVERAGE RISK 7.1 - 11.0 MODERATE RISK >11.0 HIGH RISK Performed By: #### L IPID, CMP, TSH, URIC, T7 ####[facility] [address] [phone]. Rehana Martinez Cholesterol [Mass/Vol] 137 mg/dL Normal <=200 [facility] Comment on above: Performed By: #### L IPID, CMP, TSH, URIC, T7 ####[facility] [address] [phone]. Rehana Martinez Cholesterol in HDL [Mass/Vol] 44 mg/dL Normal 40-60 [facility] Comment on above: Performed By: #### L IPID, CMP, TSH, URIC, T7 ####[facility] [address] [phone]. Rehana Martinez Cholesterol in LDL [Mass/Vol] 75.6 mg/dL Normal [facility] Comment on above: Performed By: #### L IPID, CMP, TSH, URIC, T7 ####[facility] [address] [phone]. Rehana Martinez Cholesterol.total/ Cholesterol in HDL [Mass ratio] 3.1 {ratio} Normal [facility] Comment on above: Performed By: #### L IPID, CMP, TSH, URIC, T7 ####[facility] [address] [phone]. Rehana Martinez HDL NORMAL > or = 60 mg/dl - LO W CARDIOVASCULAR RISK <40 mg/dl - HIGH CARDIOVASCULAR RISK Normal [facility] Comment on above: Performed By: #### L IPID, CMP, TSH, URIC, T7 ####[facility] [address] [address]Dr. Rehana Martinez LDL CALC NORMAL SEE BELOW Normal [facility] Comment on above: Result Comment: <100 mg/dl OPTIMAL 100 - 129 mg/dl NEAR OR ABOVE OPTIMAL 130 - 159 mg/dl BORDERLINE HIGH 160 - 189 mg/dl HIGH >190 mg/dl VERY HIGH Performed By: #### L IPID, CMP, TSH, URIC, T7 ####[facility] [address] [address]Dr. Rehana Martinez Triglyceride [Mass/Vol] 87 mg/dL Normal <=150 [facility] Comment on above: Performed By: #### L IPID, CMP, TSH, URIC, T7 ####[facility] [address] [address]Dr. Rehana Martinez VLDL CALC 17.4 mg/dL Normal [facility] Comment on above: Performed By: #### L IPID, CMP, TSH, URIC, T7 ####[facility] [address] [address]Dr. Rehana Martinez PROF 14(COMP METB)on 023 Albumin [Mass/Vol] 3.3 g/dL Critically low 3.4-5.0 [facility] Comment on above: Performed By: #### L IPID, CMP, TSH, URIC, T7 ####[facility] [address] [address]Dr. Rehana Martinez Albumin/Globulin [Mass ratio] 0.9 {ratio} Normal [facility] Comment on above: Performed By: #### L IPID, CMP, TSH, URIC, T7 ####[facility] [address] [address]Dr. Rehana Martinez ALP [Catalytic activity/Vol] 105 U/L Normal 46-116 [facility] Comment on above: Performed By: #### L IPID, CMP, TSH, URIC, T7 ####[facility] [address] [address]Dr. Rehana Martinez ALT [Catalytic activity/Vol] 16 U/L Normal 16-63 [facility] Comment on above: Performed By: #### L IPID, CMP, TSH, URIC, T7 ####[facility] [address] [address]Dr. Rehana Martinez Anion gap [Moles/Vol] 11.8 mmol/L Normal [facility] Comment on above: Performed By: #### L IPID, CMP, TSH, URIC, T7 ####[facility] [address] [place], [place] [address]Dr. Rehana Martinez AST [Catalytic activity/Vol] 16 U/L Normal 15-37 [facility] Comment on above: Performed By: #### L IPID, CMP, TSH, URIC, T7 ####[facility] [address] [place], [place] [address]Dr. Rehana Martinez Bilirubin [Mass/Vol] 0.6 mg/dL Normal 0.2-1.0 [facility] Comment on above: Performed By: #### L IPID, CMP, TSH, URIC, T7 ####[facility] [address] [place], [place] [address]Dr. Rehana Martinez Calcium [Mass/Vol] 9.1 mg/dL Normal 8.5-10.1 [facility] Comment on above: Performed By: #### L IPID, CMP, TSH, URIC, T7 ####[facility] [address] [place], [place] [address]Dr. Rehana Martinez Chloride [Moles/Vol] 103 mmol/L Normal 98-107 [facility] Comment on above: Performed By: #### L IPID, CMP, TSH, URIC, T7 ####[facility] [address] [address]Dr. Rehana Martinez CO2 [Moles/Vol] 26.0 mmol/L Normal 21.0-32.[address] [facility] Comment on above: Performed By: #### L IPID, CMP, TSH, URIC, T7 ####[facility] [address] [place], [place] [address]Dr. Rehana Martinez Creatinine [Mass/Vol] 0.94 mg/dL Normal 0.70-1.30 [facility] Comment on above: Performed By: #### L IPID, CMP, TSH, URIC, T7 ####[facility] [address] [address]Dr. Rehana Martinez EGFR-AF BRAZILIAN >60 Normal >=60 [facility] Comment on above: Performed By: #### L IPID, CMP, TSH, URIC, T7 ####[facility] [address] [address]Dr. Rehana Martinez EGFR-NON AF BRAZILIAN >60 Normal >=60 [facility] Comment on above: Performed By: #### L IPID, CMP, TSH, URIC, T7 ####[facility] [address] [address]Dr. Rehana Martinez Globulin (S) [Mass/Vol] 3.8 g/dL Normal [facility] Comment on above: Performed By: #### L IPID, CMP, TSH, URIC, T7 ####[facility] [address] [place], [place] [address]Dr. Rehana Mratinez Glucose [Mass/Vol] 109 mg/dL Critically high 74-106 [facility] Comment on above: Performed By: #### L IPID, CMP, TSH, URIC, T7 ####[facility] [address] [address]Dr. Rehana Martinez Potassium [Moles/Vol] 3.8 mmol/L Normal 3.5-5.1 [facility] Comment on above: Performed By: #### L IPID, CMP, TSH, URIC, T7 ####[facility] [address] [address]Dr. Rehana Martinez Protein [Mass/Vol] 7.1 g/dL Normal 6.4-8.2 [facility] Comment on above: Performed By: #### L IPID, CMP, TSH, URIC, T7 ####[facility] [address] [address]Dr. Rehana Martinez Sodium [Moles/Vol] 137 mmol/L Normal 136-145 [facility] Comment on above: Performed By: #### L IPID, CMP, TSH, URIC, T7 ####[facility] [address] [place], [place] [address]Pi. Rehana Martinez Urea nitrogen [Mass/Vol] 17.0 mg/dL Normal 7.0-18.0 [facility] Comment on above: Performed By: #### L IPID, CMP, TSH, URIC, T7 ####[facility] [address] [place], [place] [address]Rq. Rehana Martinez Urea nitrogen/Creatinin e [Mass ratio] 18.1 mg/mg Normal [facility] Comment on above: Performed By: #### L IPID, CMP, TSH, URIC, T7 ####[facility] [address] [place], [place] [address]Wx. Rehana Martinez TSHon 07-25-2022 TSH 1.619 uIU/mL Normal 0.358-3.740 [facility] Comment on above: Performed By: #### L IPID, CMP, TSH, URIC, T7 ####[facility] [address] [place], [place] [address]Zu. Rehana Martinez URIC ACID SERUMon 07-25-2022 Urate [Mass/Vol] 5.7 mg/dL Normal 3.5-7.2 [facility] Comment on above: Performed By: #### L IPID, CMP, TSH, URIC, T7 #### [facility] [address] [place], [place] [address] Dr. Rehana Martinez PSA, FREE AND TOTAL RATIOon 03-13-2022 % Free PSA 15.5 % Normal [facility] Comment on [...] 10% 20% >25.00% 5% 9% Please note: Catalona et al did not make specific recommendations regarding the use of percent free PSA for any other population of men. Performed By: #### P SAFREE #### [facility] [address] [place] [address] Dr. Rehana Martinez Prostate specific Ag [Mass/Vol] 4.9 ng/mL Critically high 0.0-4.0 [facility] Comment on above: Result Comment: Arnoldo benedict ECLIA methodology. . According to the [employer], Serum PSA should decrease and [...] disease. Performed By: #### P SAFREE #### [facility] [address] [place] [address] Dr. Rehana Martinez PSA, Free 0.76 ng/mL Normal N/A [facility] Comment on above: Result Comment: Roch ned ECLIA methodology. Performed By: #### P SAFREE #### [facility] [address] [place] [address] Dr. Rehana Martinez CREATININEon 12-14-2021 Creatinine [Mass/Vol] 1.01 mg/dL Normal 0.70-1.30 [facility] Comment on above: Performed By: #### C MAXINE #### [facility] [address] [place] [address] Dr. Rehana Martinez EGFR-AF BRAZILIAN >60 Normal >=[address] [facility] Comment on above: Performed By: #### C MAXINE #### [facility] [address] [place] [address] Dr. Rehana Martinez EGFR-NON AF BRAZILIAN >60 Normal >=60 [facility] Comment on above: Performed By: #### C MAXINE #### [facility] [address] [place] [address] ABD/PELV W CONon [...] by: BRANDIE RUDD Date: 2021-12-14 11:36 Normal [facility] Vital Signs Date Time Vital Sign Value Performing Clinician Yunier nunez 03-27-2022 10:11-0400 Blood Pressure Location [facility] 03-27-2022 10:11-0400 Diastolic blood pressure 57 mm[Hg] [facility] 03-27-2022 10:11-0400 Heart rate 57 /min [facility] 03-27-2022 10:11-0400 Respiratory rate 16 /min [facility] 03-27-2022 10:11-0400 Systolic blood pressure 154 mm[Hg] [facility] 12-05-2021 08:16-0400 Blood Pressure Location Monica Mondragon Jr. [facility] 12-05-2021 08:16-0400 Diastolic blood pressure 84 mm[Hg] Monica Mondragon Jr. [facility] 12-05-2021 08:16-0400 Heart rate 75 /min Monica Mondragon Jr. [facility] 12-05-2021 08:16-0400 Systolic blood pressure 118 mm[Hg] Monica Mondragon Jr. [facility] Encounters Encounter Date Encounter Type Care Provider Facility Start: 02-13-2024 ambulatory ELIZABETH Teague ty:PRICILA Chavis Start: 11-07-2023 End: 11-07-2023 ambulatory [facility]ANITA [facility] Start: 10-03-2023 ambulatory [facility] Start: 10-02-2023 End: 10-02-2023 ambulatory MAIDA [facility] Start: 09-26-2023 End: 09-26-2023 ambulatory [facility] Start: 09-04-2023 Evaluation and manag ement of inpatient MAYELIN WOLFE [facility] Start: 09-04-2023 Evaluation and manag ement of inpatient WILIAM BRAGG [facility] Start: 09-03-2023 Evaluation and manag ement of inpatient WILIAM BRAGG [facility] Start: 09-01-2023 Evaluation and manag ement of inpatient JOHN BEAVER [facility] Start: 09-01-2023 End: 09-04-2023 Evaluation and management of inpatient WILIAM YEMI MANCIACLARK [facility] Start: 08-14-2023 End: 08-14-2023 ambulatory LEONORAAB BARROSJOESPHDagmar [facility] Start: 07-18-2023 End: 07-18-2023 ambulatory MAYELIN WOLFE [facility] Start: 07-08-2023 Evaluation and manag ement of inpatient DOMENIC [facility] Start: 07-06-2023 Evaluation and manag ement of inpatient [facility] Start: 07-06-2023 Evaluation and manag ement of inpatient DOMENIC [facility] Start: 07-05-2023 Evaluation and manag ement of inpatient [facility] Start: 07-05-2023 End: 07-09-2023 [facility] Start: 05-16-2023 [facility] Start: 05-14-2023 End: 05-14-2023 ambulatory VALENTINA CABRERA [facility] Start: 05-06-2023 Evaluation and manag ement of inpatient ELINA HOLLEY [facility] Start: 05-03-2023 End: 05-03-2023 ambulatory [facility] Start: 05-01-2023 Evaluation and manag ement of inpatient [facility] Start: 04-30-2023 Evaluation and manag ement of inpatient [facility] Start: 04-30-2023 Evaluation and manag ement of inpatient [facility] Start: 04-30-2023 Evaluation and manag ement of inpatient [facility] Start: 04-29-2023 Evaluation and manag ement of inpatient [facility] Start: 04-27-2023 Evaluation and manag ement of inpatient [facility] Start: 04-26-2023 Evaluation and manag ement of inpatient [facility] Start: 04-25-2023 Evaluation and manag ement of inpatient [facility] Start: 04-25-2023 Evaluation and manag ement of inpatient KAREY SAWANT [facility] Start: 04-24-2023 Evaluation and manag ement of inpatient [facility] Start: 04-24-2023 Evaluation and manag ement of inpatient [facility] Start: 04-23-2023 [facility]: 04-23-2023 [facility]ment of [facility] Start: 04-23-2023 End: 04-23-2023 Evaluation and management of inpatient [facility] Start: 04-23-2023 Evaluation and manag ement of inpatient KAREY SAWANT [facility] Start: 04-23-2023 Evaluation and manag ement of inpatient KAREY SAWANT [facility] Start: 04-22-2023 Evaluation and manag ement of inpatient [facility] Start: 04-22-2023 Evaluation and manag ement of inpatient [facility] Start: 04-22-2023 Evaluation and manag ement of inpatient KAREY SAWANT [facility] Start: 04-22-2023 End: 05-01-2023 Evaluation and management of inpatient [facility] Start: 04-09-2023 End: 04-09-2023 Encounter for preprocedural cardiovascular examination [facility] Start: 04-09-2023 End: 04-09-2023 ambulatory [facility] Start: 04-04-2023 ambulatory [facility] Start: 03-23-2023 [facility] Start: 03-23-2023 Evaluation and manag ement of inpatient KAREY SÁNCHEZGARCIA [facility] Start: 03-22-2023 [facility] Start: 03-22-2023 Evaluation and manag ement of inpatient JENNA [facility] Start: 03-22-2023 Evaluation and manag ement of inpatient RODGER [facility] Start: 03-21-2023 End: 03-23-2023 Evaluation and management of inpatient DOMENIC [facility] Start: 01-29-2023 End: 01-29-2023 ambulatory ELIZABETH LINDSAY Facility:[facility] Start: 01-29-2023 End: 01-29-2023 Patient encounter procedure ELIZABETH LINDSAY [facility] Start: 08-04-2022 End: 08-05-[address] TYSON JAQUEZ . Facility: Start: 07-25-2022 End: 07-26-[address] TYSON JAQUEZ . Facility: Start: 03-27-2022 End: 03-27-2022 Patient encounter procedure Casper RAUSCH [facility] Start: 03-21-2022 End: 03-21-2022 Patient encounter procedure Casper RAUSCH [facility] Start: 03-12-2022 End: 03-13-[address] CASPER RAUSCH Facility:[facility] Start: 02-05-2022 End: 02-05-2022 Patient encounter procedure Monica Mondragon Jr. [facility] Start: 12-14-2021 End: 12-15-2021 ambulatory MONICA MONDRAGON JR Facility: Start: 12-05-2021 End: 12-05-2021 Patient encounter procedure Monica Mondragon Jr. [facility] Procedures Date Procedure Procedure Detail Performing Clinician Start: 10-02-2023 Follow-up visit MICHAEL IE PATRICK Start: 08-14-2023 Follow-up visit MICHAEL IE PATRICK Start: 05-16-2023 Follow-up visit MICHAEL IE PATRICK Start: 05-14-2023 Follow-up visit MICHAEL IE PATRICK Start: 04-04-2023 Follow-up visit MICHAEL IE PATRICK Start: 07-25-[address] FABIOLA JAQUEZ . Comment on above: Performed By: #### P [facility] #### [facility] [address] [place], [place] [address] Dr. Rehana Martinez Start: 03-21-2022 Cystoscopy ELIZABETH JOHNSTON Start: 12-14-[address] FABIOLA JAQUEZ . Comment on above: Performed By: #### P SAD ####[facility] [address] [place], [place] [address]UkDr. Rehana Martinez Start: 01-23-2018 Cystoscopy Monica stephen Jr. Comment on above: 07/22/09, 01/23/18 07/22/09, 01/23/18 Immunizations Immunization Date Immunization Notes Care Provider Cipriano moody 06-20-2021 SARS-CoV-2 (COVID-19 ) mRNA BNT-162b2 eduardox Casper RAUSCH [facility] 09-13-2020 SARS-CoV-2 (COVID-19 ) Ad26 vaccine, recombinant Monica Mondragon Jr. [facility] 08-22-2020 SARS-CoV-2 (COVID-19 ) Ad26 vaccine, recombinant Monica Giancarlo Campbell [facility] NEGATED: Highlighted row has not occurred!12-05-2021 influenza virus vaccine, unspecified formulation Monica Giancarlo Campbell [facility] Payers Date Payer Category Payer Medicare [id number] 1960 Unknown [id number] 1955 Unknown [id number] 2.16.84 [id number] 1955 Unknown [id number] 2.16.84 [id number] 1955 Unknown [id number] 2.16.84 [id number] 1954 Unknown [id number] 2.16.84 [id number] 1954 Unknown [id number] 2.16.8 [id number] 1955 Unknown [id number] 2.16.8 [id number] Social History Date Type Detail Facility Start: 12-05-2021 Tobacco smoking status Heavy t obacco smoker (finding) [facility] Sex Assigned At Male [facility] Functional Status Date Assessment Result Facility 01-29-2023 Functional Status N/A [facility] 03-27-2022 Functional Status N/A [facility] 03-15-2022 Functional Status N/A [facility] 12-05-2021 Functional Status N/A [facility] [place] Clinical Notes 05-23-2021 to 11-07-2023 LaboratoryLaboratoryLaboratoryLaboratory Note Date & Type Note Facility 11-07-2023 Note [facility] 11-07-2023 Note [facility] 10-03-2023 Note [facility] 10-02-2023 Note [facility] 09-04-2023 Note [facility] 09-04-2023 Note [facility] 09-03-2023 Note [facility] 09-03-2023 Note [facility] 09-03-2023 Note [facility] 09-02-2023 Note [facility] 09-02-2023 Note [facility] 09-02-2023 Note [facility] 08-14-2023 Note [facility] 08-01-2023 Note [facility] 07-30-2023 Note [facility] 07-18-2023 Note [facility] 07-18-2023 Note [facility] 07-18-2023 Note Increase imdur to 60 mg daily, decrease coreg back to 3.125 mg bid in light of bradycardia and somewhat labile B/P. [facility] 07-18-2023 Note [facility] 07-18-2023 Note [facility] 07-09-2023 Note [facility] 07-09-2023 Note [facility] 07-09-2023 Note [facility] 07-08-2023 Note [facility] 07-07-2023 Note [facility] 07-07-2023 Note [facility] 07-06-2023 Note [facility] 07-02-[address] chest wo [facility] 05-16-2023 Note [facility] 05-16-2023 Note [facility] 05-16-2023 Note [facility] 05-14-2023 Note [facility] 05-14-2023 Note [facility] 05-01-2023 Note Patient provided a c opy of the AVS. All questions answered. Patient discharged with belongings and taken down with transport via wheelchair and family at bedside. [facility] 05-01-2023 Note [facility] 05-01-2023 Note [facility] 05-01-2023 Note [facility] 05-01-2023 Note [facility] 04-30-2023 Note [facility] 04-30-2023 Note [facility] 04-29-2023 Note [facility] 04-29-2023 Note [facility] 04-29-2023 Note [facility] 04-29-2023 Note [facility] 04-28-2023 Note [facility] 04-28-2023 Note [facility] 04-27-2023 Note [facility] 04-27-2023 Note [facility] 04-27-2023 Note [facility] 04-27-2023 Note [facility] 04-26-2023 Note [facility] 04-26-2023 Note [facility] 04-26-2023 Note [facility] 04-26-2023 Note [facility] 04-26-2023 Note [facility] 04-26-2023 Note [facility] 04-25-2023 Note [facility] 04-25-2023 Note Attempted to call wi fe to get information and give updates. Was unable to reach her, will continue to try. [facility] 04-25-2023 Note [facility] 04-25-2023 Note [facility] 04-25-2023 Note [facility] 04-24-2023 Note Patient is still on vent support. Per RN was off and placed back on yesterday. Consult for s/p CABG. SW to follow. [facility] 04-24-2023 Note [facility] 04-24-2023 Note Physical Therapy Patient intubated/sedated at this time. PT will check back and follow as appropriate. Stella Bustos, CHANTEL [facility] 04-24-2023 Note [facility] 04-24-2023 Note Occupational Therapy Cancel Note Reason: Patient intubated and sedated at this time. OT will continue to follow and will re-attempt as able. Time in: 0808 Check no charge Thelma CAMEJO, OTR/L, CLT [facility] 04-24-2023 Note [facility] 04-23-2023 Note [facility] 04-23-2023 Note [facility] 04-23-2023 Note [facility] 04-23-2023 Note [facility] 04-23-2023 Note [facility] 04-23-2023 Note [facility] 04-22-2023 Note TRIGGER: PRESSURE 1:1 FULLY AUGMENTED [facility] 04-22-2023 Note TRIGGER: PRESSURE 1:1 FULLY AUGMENTED [facility] 04-22-2023 Note INSERTED WITHOUT COM PLICATION USING STERILE TECHNIQUE; DRAINING CLEAR YELLOW URINE; TO BE MONITORED BY ANESTHESIA FOR DURATION OF THE CASE [facility] 04-22-2023 Note [facility] 04-22-2023 Note [facility] 04-22-2023 Note [facility] 04-09-2023 Note [facility] 04-09-2023 Note [facility] 04-04-2023 Note [facility] 04-01-2023 Note [facility] 03-23-2023 Note [facility] 03-23-2023 Note [facility] 03-22-2023 Note [facility] 03-22-2023 Note [facility] 03-27-2022 Hospital Discharge instructions Patient Education 03/27/2022 [...] urethra. Follow these instructions at home: Take fsda-ipm-pezsifs and prescription medicines only as told by [...] 06/03/2006 Document Revised: 04/28/2019 Document Reviewed: 07/08/2017 [facility] [employer] Patient Education 2020 [place]. Follow Up Care 03/21/2022 11:25:28 With:Giancarlo Campbell MD, Monica Menendez URO Address: [facility] [address] , [place] [address]- When: Unknown [facility] 02-27-2022 Hospital Discharge instructions Follow Up Care 02/27/2022 13:20:12 With:Casper RAUSCH Address: [address] [place] [id number]- Business (1) When:5 to 7 days With:Casper RAUSCH Address: [address] [place] [phone]- Business (1) When: Unknown [facility] 12-05-2021 Hospital Discharge instructions Patient Education 12/05/2021 [...] Follow these instructions at home: Medicines Take ytws-ctp-jzkhnwa and prescription medicines only as told by [...] or the blood stops without treatment. Take kdvq-ahz-ceqliat and prescription medicines only as told by your health care provider. Drink enough fluid to keep your urine clear or pale yellow. This information is not intended to replace advice given to you by your health care provider. Make sure you discuss any questions you have with your health care provider. Document Released: 06/03/2006 Document Revised: 10/28/2019 Document Reviewed: 07/06/2017 [facility] [employer] Patient Education 2020 [place]. Follow Up Care 05/30/2021 15:33:59 With:Monica Mondragon Jr., MD, URO Address: [facility] [address] [place] [address]- [phone] When: Unknown [facility] 05-23-2021 Hospital Discharge instructions Follow Up Care 05/23/2021 11:27:47 With:ELIZABETH LINDSAY PA-C, URL Address: [place] [address] When:Within 1 Year(s) Comments:w/PSA [facility] Evaluation + Plan note Future Appointments Appointment Date:05/22/2022 11:00:00 AM Scheduled Provider:Monica Mondragon Jr., MD Location:[facility] Appointment Type:URO Office Visit Diagnostic Tests PendingPSA Total 12/05/21 Future Scheduled TestsPSA Free & Total 05/30/21 [facility] Evaluation + Plan note Future Appointments Appointment Date:05/22/2022 11:00:00 AM Scheduled Provider:Monica Mondragon Jr., MD Location:[facility] Appointment Type:URO Office Visit Future Scheduled TestsPSA Free & Total 05/30/21 [facility] Evaluation + Plan note Future Appointments Appointment Date:03/27/2022 09:45:00 AM Scheduled Provider:Casper RAUSCH MD Location:[facility] Appointment Type:URO Office Visit Appointment Date:05/22/2022 11:00:00 AM Scheduled Provider:Monica Mondragon Jr., MD Location:[facility] Appointment Type:URO Office Visit Diagnostic Tests PendingUroVysion Fish and Urine Cyto ([facility]) 03/21/22 Future Scheduled TestsPSA Free & Total 05/30/21 [facility] Evaluation + Plan note Future Appointments Appointment Date:09/18/2022 09:15:00 AM Scheduled Provider:Monica Mondragon Jr., MD Location:[facility] Appointment Type:URO Office Visit Diagnostic Tests PendingPSA Free & Total 06/17/22 Future Scheduled TestsPSA Free & Total 05/30/21 [facility] Evaluation + Plan note Future Appointments Appointment Date:02/11/2024 08:30:00 AM Scheduled Provider:ELIZABETH LINDSAY PA-C Location:[facility] Appointment Type:URO Office Visit Diagnostic Tests PendingPSA Total 01/29/23 [facility] Hospital course Narrative No data available for this section [facility] Hospital Discharge instructions No data available for this section [facility] note No data available for this section [facility] Summary Purpose Family History No Family History Records FoundNo Family History Records FoundNo Family History Records Found Advance Directives No Advanced Directives Records FoundNo Advanced Directives Records FoundNo Advanced Directives Records Found Additional Source Comments Care Team (unrecognized sect ion and content) Personnel Name: Tyson Jaquez MD Address: [address] [place] [address] Personnel Name: Tyson Jaquez MD Address: [address] [place] [address] Personnel Name: Tyson Jaquez MD Address: Address: [address] [place] [address] Personnel Name: Tyson Jaquez MD Address: Address: [address] [place] [address] Personnel Name: Tyson Jaquez MD Address: Address: [address] [place] [address] (unrecognized sect ion and content) No Status Records FoundNo Status Records FoundNo Status Records Found INFORMATION SOURCE (unrecogn ized section and content) DATE CREATED AUTHOR 08/10/2022 [facility] DATE CREATED AUTHOR AUTHOR'S ORGANIZ ATION 11/16/2023 [facility] DATE CREATED AUTHOR AUTHOR'S ORGANIZ ATION 01/24/2024 [facility] FOR RECORDS PERTAINING TO PATIENTS WHO [...] BE BASED ON THE PRIMARY CLINICAL RECORDS. [employer] provides no warranty or guarantee of the accuracy or completeness of information in this document.
[2024-01-28 08:03] LABS: Basophils Percent Auto 0.4 % (0.2-2.0); Eosinophils Percent Auto 0.5 % (0.9-7.0); Hemoglobin 13.5 g/dL (14.0-18.0); Immature Granulocytes Abs Auto 0.02 10^3/uL (0.00-0.03); Immature Granulocytes Pct Auto 0.3 % (0.0-0.5); Lymphocytes Absolute Auto 2.2 10^3/uL (1.2-3.8); Lymphocytes Percent Auto 29.1 % (20.5-60.0); Mean Corpuscular HGB Conc 34.6 g/dL (29.9-35.2); Mean Corpuscular Hemoglobin 31.3 pg (25.9-34.0); Mean Corpuscular Volume 90.3 fL (80.0-94.0); Mean Platelet Volume 8.8 fL (9.5-13.5); Monocytes Absolute Auto 0.7 10^3/uL (0.3-0.8); Monocytes Percent Auto 9.4 % (1.7-12.0); Neutrophils Absolute Auto 4.5 10^3/uL (1.4-6.5); Neutrophils Percent Auto 60.3 % (43.0-75.0); Platelet Count 237 10^3/uL (150-450); Red Blood Count 4.32 10^6/uL (4.70-6.10); Red Cell Distribution Width 13.2 % (11.0-15.0); White Blood Count 7.5 10^3/uL (4.0-11.0)
[2024-01-28 09:36] LABS: Alanine Aminotransferase 19 U/L (16-63); Albumin Level 3.4 g/dL (3.4-5.0); Alkaline Phosphatase 141 U/L (46-116); Aspartate Amino Transferase 18 U/L (15-37); BUN Creatinine Ratio 17.5; Bilirubin Total 0.4 mg/dL (0.2-1.0); Calcium 8.9 mg/dL (8.5-10.1); Carbon Dioxide 22.3 mmol/L (21.0-32.0); Chloride 105 mmol/L (98-107); Chol HDL Ratio 2.1; Cholesterol 74 mg/dL (<=200); Estimated GFR (African America >60 (>=60); Estimated GFR (Non-African Ame >60 (>=60); Free T3 2.63 pg/mL (2.18-3.98); Globulin 3.4 g/dL; Glucose 102 mg/dL (74-106); HDL Cholesterol 35 mg/dL (40-60); Potassium 3.3 mmol/L (3.5-5.1); Sodium 138 mmol/L (136-145); Thyroid Stimulating Hormone 2.039 uIU/mL (0.358-3.740); Total Protein 6.8 g/dL (6.4-8.2); Triglycerides 54 mg/dL (<=150); Uric Acid 7.6 mg/dL (3.5-7.2); VLDL CHOLESTEROL 10.8 mg/dL
[2024-01-28 09:45] LABS: Troponin I High Sensitivity 292.3 pg/mL (4.0-76.1)
[2024-01-28 12:12] LABS: Estimated Average Glucose 126 mg/dL
[2024-01-29 04:07] LABS: CA 19-9 14 U/mL (0-35); PSA, Free 0.91 ng/mL
[2024-01-29 08:13] LABS: CEA 1.4 ng/mL (0.0-4.7)
[2024-01-29 14:10] LABS: Albumin 3.5 g/dL (2.9-4.4); Alpha-1-Globulin 0.3 g/dL (0.0-0.4); Alpha-2-Globulin 0.8 g/dL (0.4-1.0); Gamma Globulin 1.1 g/dL (0.4-1.8); Protein, Total 6.5 g/dL (6.0-8.5)
== END 2024-01-28 07:44 | disposition home or self-care (01) ==
LOC: LAB 07:45
PROVIDERS: PCP Family Medicine; Visit Provider Family Medicine
DX: I25.10 Atherosclerotic heart disease of native coronary artery without angina pectoris (principal); M10.9 Gout, unspecified; I21.4 Non-ST elevation (NSTEMI) myocardial infarction; K21.9 Gastro-esophageal reflux disease without esophagitis
CPT/HCPCS: 36415; 80053; 80061; 82378; 83036; 83880; 84153; 84154; 84155; 84165; 84436; 84443; 84481; 84484; 84550; 85025; 86301

== ENCOUNTER 2024-01-28 10:52 | Inpatient (IN) | payer MEDICARE, SELFPAY ==
[2024-01-28] VITALS (87 sets, daily range): BP systolic 106–164; BP diastolic 54–81; PULSE 47–70; TEMP 36.4–36.9; O2SAT 95–100; BMI 23.7; BMI 23.0
--- NOTE | 2024-01-28 11:11 | ECG_ITS ---
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
--- NOTE | 2024-01-28 11:12 | XR_ITS ---
The [address] [address] Patient Name: ESEQUIEL ORTIZ MRN: [id number] date: 1955 Sex: M Assigned Patient Location: ER Current Patient Location: ED.MAIN Accession/Order Number: [id number] Exam Date: 01/28/2024 11:38 Report Date: 01/28/2024 12:38 At the request of: YANN VILLALBA Procedure: XR chest 1V EXAMINATION: XR chest 1V HISTORY: Elevated troponin COMPARISON: 08/31/2023 TECHNIQUE: AP portal FINDINGS: LUNGS: No significant pulmonary parenchymal abnormalities. VASCULATURE: No increased pulmonary vasculature. PLEURA: No pneumothorax, effusion, or pleural thickening. CARDIAC: No cardiomegaly or cardiac silhouette abnormality. MEDIASTINUM: No visible mass or adenopathy. Median sternotomy BONES: No fracture or visible bone lesion. OTHER: Negative. XR/XR chest 1V IMPRESSION: No acute cardiopulmonary process Electronically authenticated by: BRANDIE RUDD Date: 01/28/2024 12:38
--- NOTE | 2024-01-28 11:13 | ED.GENADUL1 ---
HPI HPI - General Adult General Chief complaint: Chest Pain Stated complaint: ABNORMAL VALUE Time Seen by Provider: 01/28/24 11:00 Source: patient Mode of arrival: walk-in Limitations: no limitations History of Present Illness HPI narrative: 69-year-old male presents to the emergency department for elevated troponin. He apparently had some chest pain on January 24 and and today, January 27, he had blood work drawn and was contacted this morning to go to the emergency department. It appears his troponin is 292. He does not have chest pain now. No fever or injury. He has a history of CAD and has stents. Related Data Home Medications ?Medication ?Instructions ?Recorded ?Confirmed pantoprazole 40 mg tablet,delayed 40 mg PO DAILY 03/21/23 01/28/24 release atorvastatin 40 mg tablet 80 mg PO QAM 05/06/23 01/28/24 clopidogrel 75 mg tablet 75 mg PO QAM 05/06/23 01/28/24 carvedilol 3.125 mg tablet 3.125 mg PO Q12H 08/31/23 01/28/24 furosemide 20 mg tablet (Lasix) 20 mg PO .COMPLEX 08/31/23 01/28/24 lisinopril 10 mg tablet 10 mg PO QAM 08/31/23 01/28/24 isosorbide mononitrate 60 mg 60 mg PO DAILY 09/01/23 01/28/24 tablet,extended release 24 hr nitroglycerin 0.4 mg sublingual 0.4 mg sublingual Q5M PRN chest 01/28/24 01/28/24 tablet pain Allergies Allergy/AdvReac Type Severity Reaction Status Date / Time No Known Drug Allergies Allergy Verified 08/31/23 17:20 Opioid HPI Opioid Management Most Recent Opioid Data: Last Pain Scale 0 07/05/23 11:20 Last ORT Total Score 0 08/31/23 23:26 Last ORT Risk Category Low Risk 08/31/23 23:26 Review of Systems ROS Narrative A ten point review of systems is negative except as noted above. [facility] Medical History (Updated 01/28/24 @ 12:29 by Chris New MD) Angina pectoris, unstable ?I20.0 - Unstable angina (ICD-10) Chest pain ?R07.9 - Chest pain, unspecified (ICD-10) PVD (peripheral vascular disease) ?I73.9 - Peripheral vascular disease, unspecified (ICD-10) Hypertension ?I10 - Essential (primary) hypertension (ICD-10) CAD (coronary artery disease) ?I25.10 - Atherosclerotic heart disease of [place] coronary artery without angina pectoris (ICD-10) LLL pneumonia ?J18.9 - Pneumonia, unspecified organism (ICD-10) Acute non-ST elevation myocardial infarction (NSTEMI) ?I21.4 - Non-ST elevation (NSTEMI) myocardial infarction (ICD-10) Surgical History (Updated 05/06/23 @ 21:44 by Lesley Mike) History of open heart surgery ?Z98.890 - Other specified postprocedural states (ICD-10) Social History Within the past year, how often did you have a drink containing alcohol: never Score interpretation: A score less than 4 is consistent with normal alcohol consumption. Smoking status: Former smoker Non-prescribed substance use: denies use Highest level of school completed/degree received: don't know Exam Narrative Exam Narrative: Nurses note and vital signs reviewed and patient is not hypoxic. General: The patient appears well and in no apparent distress. Patient is resting comfortably on cart. Skin: Warm, dry, no pallor noted. There is no rash noted. Head: Normocephalic, atraumatic Eye: Normal conjunctiva, no drainage Ears, Nose, Mouth, and Throat: oral mucosa is moist. Nares patent. Cardiovascular: Regular Rate and Rhythm Respiratory: Patient is in no distress, no accessory muscle use, lungs are clear to auscultation, no wheezing, rales or rhonchi Back: non-tender GI: Soft and nontender Musculoskeletal: The patient has no evidence of calf tenderness, no pitting edema, symmetrical pulses noted bilaterally Neurological: A&O, normal speech Psychiatric: Cooperative Constitutional Vital Signs, click to edit/add: Last Vital Signs Temp 97.5 F L 01/28/24 11:01 Pulse 55 L 01/28/24 11:01 Resp 18 01/28/24 11:01 BP 116/67 01/28/24 11:01 Pulse Ox 99 01/28/24 11:01 Course Vital Signs Vital signs: Vital Signs Temperature 97.5 F L 01/28/24 11:01 Pulse Rate 55 L 01/28/24 11:01 Respiratory Rate 18 01/28/24 11:01 Blood Pressure 116/67 01/28/24 11:01 Pulse Oximetry 99 01/28/24 11:01 Temperature 97.5 F L 01/28/24 11:01 Pulse Rate 55 L 01/28/24 11:01 Respiratory Rate 18 01/28/24 11:01 Blood Pressure 116/67 01/28/24 11:01 Pulse Oximetry 99 01/28/24 11:01 Medical Decision Making MDM Narrative Medical decision making narrative: Initial troponin this morning was 292, the repeat now is 207. EKG shows no acute findings, normal sinus rhythm, no ST elevation. He is pain-free. He was given aspirin and I spoke to his PCP as well as Dr Griffiths and the plan is to transfer him to [facility]. He is agreeable and stable for transfer. He was accepted by Dr. Griffiths and the patient was started on IV heparin here. Findings are discussed with the patient and his . Differential Diagnosis Differential Diagnosis: Nonspecific chest pain, STEMI, NSTEMI, pneumothorax Lab Data Lab results reviewed: Yes I reviewed the patient's lab results Labs: Lab Results 01/28/24 Range/Units 11:20 WBC 7.3 (4.0-11.0) 10^3/uL RBC 4.20 L (4.70-6.10) 10^6/uL Hgb 13.1 L (14.0-18.0) g/dL Hct 38.0 L (42.0-54.0) % MCV 90.5 (80.0-94.0) fL MCH 31.2 (25.9-34.0) pg MCHC 34.5 (29.9-35.2) g/dL RDW 13.2 (11.0-15.0) % Plt Count 255 (150-450) 10^3/uL MPV 9.2 L (9.5-13.5) fL Neut % (Auto) 63.5 (43.0-75.0) % Lymph % (Auto) 26.4 (20.5-60.0) % Hunt % (Auto) 9.4 (1.7-12.0) % Eos % (Auto) 0.3 L (0.9-7.0) % Baso % (Auto) 0.3 (0.2-2.0) % Neut # (Auto) 4.6 (1.4-6.5) 10^3/uL Lymph # (Auto) 1.9 (1.2-3.8) 10^3/uL Hunt # (Auto) 0.7 (0.3-0.8) 10^3/uL Eos # (Auto) 0.0 (0.0-0.7) 10^3/uL Baso # (Auto) 0.0 (0.0-0.1) 10^3/uL Abs Immat Gran (auto) 0.01 (0.00-0.03) 10^3/uL Imm/Tot Granulo (auto) 0.1 (0.0-0.5) % Sodium 137 (136-145) mmol/L Potassium 3.6 (3.5-5.1) mmol/L Chloride 105 (98-107) mmol/L Carbon Dioxide 21.6 (21.0-32.0) mmol/L Anion Gap 14.0 BUN 19.0 H (7.0-18.0) mg/dL Creatinine 1.01 (0.70-1.30) mg/dL Est GFR ( Amer) >60 (>=60) Est GFR (Non-Af Amer) >60 (>=60) BUN/Creatinine Ratio 18.8 Glucose 134 H (74-106) mg/dL Calcium 8.9 (8.5-10.1) mg/dL Troponin I High Sens 207.5 H* (4.0-76.1) pg/mL Imaging Data Chest x-ray: My impression: Chest x-ray on my interpretation shows no acute findings ECG Data Attestation: I personally reviewed and interpreted this ECG as follows: (EKG on my interpretation shows normal sinus rhythm with rate of 56 and no acute change.) Critical Care Time Critical Care Time Critical Care Time: Yes Total Critical Care Time: 40 Attestation: Due to the high probability of sudden and clinically significant deterioration in the patient's condition he/she required the highest level of my preparedness to intervene urgently I provided critical care time including documentation time, medication orders and management, reevaluation, vital sign assessment, ordering and reviewing of lab tests, ordering and reviewing of x-ray studies, and admission orders. Aggregate critical care time is 40 minutes including only time during which I was engaged in work directly related to his/her care and did not include time spent treating other patients simultaneously. Discharge Plan Discharge Chief Complaint: Chest Pain Clinical Impression: Non-ST elevation [place] (NSTEMI) Patient Disposition: [facility] Time of Disposition Decision: 12:29 Discharge Location: [facility] Condition: Fair Mode of Transportation: EMS
[2024-01-28 11:32] LABS: Basophils Percent Auto 0.3 % (0.2-2.0); Eosinophils Percent Auto 0.3 % (0.9-7.0); Hemoglobin 13.1 g/dL (14.0-18.0); Immature Granulocytes Abs Auto 0.01 10^3/uL (0.00-0.03); Immature Granulocytes Pct Auto 0.1 % (0.0-0.5); Lymphocytes Absolute Auto 1.9 10^3/uL (1.2-3.8); Lymphocytes Percent Auto 26.4 % (20.5-60.0); Mean Corpuscular HGB Conc 34.5 g/dL (29.9-35.2); Mean Corpuscular Hemoglobin 31.2 pg (25.9-34.0); Mean Corpuscular Volume 90.5 fL (80.0-94.0); Mean Platelet Volume 9.2 fL (9.5-13.5); Monocytes Absolute Auto 0.7 10^3/uL (0.3-0.8); Monocytes Percent Auto 9.4 % (1.7-12.0); Neutrophils Absolute Auto 4.6 10^3/uL (1.4-6.5); Neutrophils Percent Auto 63.5 % (43.0-75.0); Platelet Count 255 10^3/uL (150-450); Red Cell Distribution Width 13.2 % (11.0-15.0); White Blood Count 7.3 10^3/uL (4.0-11.0)
[2024-01-28 11:44] LABS: BUN Creatinine Ratio 18.8; Calcium 8.9 mg/dL (8.5-10.1); Carbon Dioxide 21.6 mmol/L (21.0-32.0); Chloride 105 mmol/L (98-107); Estimated GFR (African America >60 (>=60); Estimated GFR (Non-African Ame >60 (>=60); Glucose 134 mg/dL (74-106); Potassium 3.6 mmol/L (3.5-5.1); Sodium 137 mmol/L (136-145)
[2024-01-28 11:54] LABS: Troponin I High Sensitivity 207.5 pg/mL (4.0-76.1)
[2024-01-28] MEDS: ASPIRIN 81 MG TAB.CHEW 324 MG PO (12:31)
[2024-01-28] MEDS: HEPARIN SODIUM (PORCINE) 5,000 UNIT/ML VIAL 2400 UNIT IV (13:10)
[2024-01-28] MEDS: HEPARIN SODIUM,PORCINE/D5W 25,000 UNIT/500 ML IV.SOLN 14.587 UNIT IV (13:15)
[2024-01-28 19:57] LABS: PTT Heparin Monitor 54.1 sec (48.2-68.6)
--- NOTE | 2024-01-28 21:08 | ED_ITS ---
HPI - Chest Pain General Chief Complaint: Chest Pain Stated Complaint: ABNORMAL VALUE Time Seen by Provider: 01/28/24 11:00 Source: patient Mode of arrival: walk-in Limitations: no limitations History of Present Illness HPI narrative: This 69-year-old male with a history of heart disease was signed out to me at shift change pending transfer arrangements for [facility]. He was seen at Dr. Nunes's office earlier today after complaining of chest pain for several days. Outpatient labs were ordered and he was noted had elevated troponin at 292. He was sent to the emergency department for evaluation. He was seen and evaluated by Dr. New and a repeat EkG and labs were ordered. His repeat troponin is 207.5. He was started on a heparin drip. He is stable on the heparin drip and denies any chest pain. He has been accepted for transfer to [facility] however no beds are going to be available this evening and I discussed with him being admitted for observation upstairs in the ICU until a bed is available for him to be transferred. He initially was not agreeable to this plan and stated he wanted to go home however his is adamant that he stay in the hospital. He is ultimately agreeable to being admitted short-term to the ICU at this facility until a bed is available at [facility]. The case was discussed with the hospitalist and the patient accepted for admission at this time. Related Data Home Medications ?Medication ?Instructions ?Recorded ?Confirmed pantoprazole 40 mg tablet,delayed 40 mg PO DAILY 03/21/23 01/28/24 release atorvastatin 40 mg tablet 80 mg PO QAM 05/06/23 01/28/24 clopidogrel 75 mg tablet 75 mg PO QAM 05/06/23 01/28/24 carvedilol 3.125 mg tablet 3.125 mg PO Q12H 08/31/23 01/28/24 furosemide 20 mg tablet (Lasix) 20 mg PO .COMPLEX 08/31/23 01/28/24 lisinopril 10 mg tablet 10 mg PO QAM 08/31/23 01/28/24 isosorbide mononitrate 60 mg 60 mg PO DAILY 09/01/23 01/28/24 tablet,extended release 24 hr nitroglycerin 0.4 mg sublingual 0.4 mg sublingual Q5M PRN chest 01/28/24 01/28/24 tablet pain Allergies Allergy/AdvReac Type Severity Reaction Status Date / Time No Known Drug Allergies Allergy Verified 08/31/23 17:20 [facility] Medical History (Updated 01/28/24 @ 12:29 by Chris New MD) Angina pectoris, unstable ?I20.0 - Unstable angina (ICD-10) Chest pain ?R07.9 - Chest pain, unspecified (ICD-10) PVD (peripheral vascular disease) ?I73.9 - Peripheral vascular disease, unspecified (ICD-10) Hypertension ?I10 - Essential (primary) hypertension (ICD-10) CAD (coronary artery disease) ?I25.10 - Atherosclerotic heart disease of [place] coronary artery without angina pectoris (ICD-10) LLL pneumonia ?J18.9 - Pneumonia, unspecified organism (ICD-10) Acute non-ST elevation myocardial infarction (NSTEMI) ?I21.4 - Non-ST elevation (NSTEMI) myocardial infarction (ICD-10) Surgical History (Updated 05/06/23 @ 21:44 by Lesley Mike) History of open heart surgery ?Z98.890 - Other specified postprocedural states (ICD-10) Social History Within the past year, how often did you have a drink containing alcohol: never Score interpretation: A score less than 4 is consistent with normal alcohol consumption. Smoking status: Former smoker Non-prescribed substance use: denies use Highest level of school completed/degree received: don't know Exam Constitutional Vital Signs, click to edit/add: Last Vital Signs Temp 97.5 F L 01/28/24 11:01 Pulse 58 L 01/28/24 19:00 Resp 21 H 01/28/24 19:00 BP 120/68 01/28/24 19:00 Pulse Ox 97 01/28/24 19:00 Course Vital Signs Vital signs: Vital Signs Temperature 97.5 F L 01/28/24 11:01 Pulse Rate 55 L 01/28/24 11:01 Respiratory Rate 18 01/28/24 11:01 Blood Pressure 116/67 01/28/24 11:01 Pulse Oximetry 99 01/28/24 11:01 Temperature 97.5 F L 01/28/24 11:01 Pulse Rate 58 L 01/28/24 19:00 Respiratory Rate 21 H 01/28/24 19:00 Blood Pressure 120/68 01/28/24 19:00 Pulse Oximetry 97 01/28/24 19:00 MDM - Chest Pain Lab Data Labs: Lab Results 01/28/24 01/28/24 Range/Units 11:20 19:27 WBC 7.3 (4.0-11.0) 10^3/uL RBC 4.20 L (4.70-6.10) 10^6/uL Hgb 13.1 L (14.0-18.0) g/dL Hct 38.0 L (42.0-54.0) % MCV 90.5 (80.0-94.0) fL MCH 31.2 (25.9-34.0) pg MCHC 34.5 (29.9-35.2) g/dL RDW 13.2 (11.0-15.0) % Plt Count 255 (150-450) 10^3/uL MPV 9.2 L (9.5-13.5) fL Neut % (Auto) 63.5 (43.0-75.0) % Lymph % (Auto) 26.4 (20.5-60.0) % Nicholas % (Auto) 9.4 (1.7-12.0) % Eos % (Auto) 0.3 L (0.9-7.0) % Baso % (Auto) 0.3 (0.2-2.0) % Neut # (Auto) 4.6 (1.4-6.5) 10^3/uL Lymph # (Auto) 1.9 (1.2-3.8) 10^3/uL Nicholas # (Auto) 0.7 (0.3-0.8) 10^3/uL Eos # (Auto) 0.0 (0.0-0.7) 10^3/uL Baso # (Auto) 0.0 (0.0-0.1) 10^3/uL Abs Immat Gran (auto) 0.01 (0.00-0.03) 10^3/uL Imm/Tot Granulo (auto) 0.1 (0.0-0.5) % PTT (Heparin Absorb) 54.1 (48.2-68.6) sec Sodium 137 (136-145) mmol/L Potassium 3.6 (3.5-5.1) mmol/L Chloride 105 (98-107) mmol/L Carbon Dioxide 21.6 (21.0-32.0) mmol/L Anion Gap 14.0 BUN 19.0 H (7.0-18.0) mg/dL Creatinine 1.01 (0.70-1.30) mg/dL Est GFR ( Amer) >60 (>=60) Est GFR (Non-Af Amer) >60 (>=60) BUN/Creatinine Ratio 18.8 Glucose 134 H (74-106) mg/dL Calcium 8.9 (8.5-10.1) mg/dL Troponin I High Sens 207.5 H* (4.0-76.1) pg/mL Discharge Plan Discharge Chief Complaint: Chest Pain Clinical Impression: Non-ST elevation [place] (NSTEMI) Patient Disposition: Admitted as Observation Time of Disposition Decision: 21:11 Condition: Fair Mode of Transportation: EMS
--- OUTSIDE RECORDS SUMMARY | 2024-01-28 22:29 | XMS_ITS | CCD ---
Author Organization [facility] Care Team Providers Care Reception Interviewer Name Role Phone Tyson Jaquez Primary Care [...] Attending Unavailable ELINA HOLLEY Referring Unavailable GANGWILIAM ANDERSON Attending Unavailab le LIA PARADA Admitting Unavailable [...] Admitting Unavailable RIZWANA HOLDEN Referring Unavailable ELIZABETH LINDSAY Attending Unavailable ELIZABETH LINDSAY Attending Unavailable Allergies Allergy Classification Reported Allergen(s) Allergy Type Date of Onset Reaction(s) Facility (1 source) No Known Medication Allergies; Translations: [No Known Medication Allergies] Propensity to adverse reactions (disorder) [facility] Repository Medications Current Medications Medication Drug [...] Daily, # 90 cap(s), Refills(s) 3, [id number], cm, 12/05/21 8:20:00 [...] procedure, # 2 cap(s), Refills(s) 0, [id number], cm, 12/05/21 8:20:00 [...] Unstable angina; Translations: [Atherosclerotic heart disease of [place] coronary artery without angina pectoris] Onset: 03-21-2023 [...] Reference Range Facility Follow-Upon 11-07-2023 Follow-Up Normal [facility] 10-03-[address] [facility] CHEST WO IV CONTRASTon CT CHEST WO IV CONTRAST Normal [facility] 30on 09-04-2023 30 Normal [facility] BASIC METABOLIC PANELon 08-16 Anion gap [Moles/Vol] 8 mmol/L Normal 7- [facility] Comment on above: Performed By: #### L [id number] ####[facility] (BEAKER)[address] [place] [address] Calcium [Mass/Vol] 8.9 mg/dL Normal 8.6-10.3 [facility] Comment on above: Performed By: #### L [id number] ####[facility] (BEAKER)[address] [place] [address] Chloride [Moles/Vol] 109 mmol/L High 98-107 [facility] Comment on above: Performed By: #### L [id number] ####[facility] (BESPENSER)[address] [place] [address] CO2 [Moles/Vol] 24 mmol/L Normal 21-31 [facility] Comment on above: Performed By: #### L [id number] ####[facility] ([facility] [place] [address] Creatinine [Mass/Vol] 0.86 mg/dL Normal 0.70-1.30 [facility] Comment on above: Performed By: #### L [id number] ####[facility] ([facility])[address] [place] [address] GLOMERULAR FILTRATION RATE ML/MIN/1.73 SQ M.PREDICTED 93.7 mL/min/1.73m*2 Normal >60.0 [facility] Comment on above: Result Comment: [facility]???s estimated glomerular filtration rate (eGFR) will no [...] of individuals. Performed By: #### L [id number] ####[facility] (BESPENSER)[address] [place] [address] Glucose [Mass/Vol] 109 mg/dL High 70-100 [facility] Comment on above: Performed By: #### L [id number] ####[facility] (BEAKER)[address] [place] [address] Potassium [Moles/Vol] 3.9 mmol/L Normal 3.5-5.1 [facility] Comment on above: Performed By: #### L [id number] ####[facility] ([facility])[address] [place] [address] Sodium [Moles/Vol] 137 mmol/L Normal 136-145 [facility] Comment on above: Performed By: #### L [id number] ####[facility] ([facility])[address] [place] [address] Urea nitrogen [Mass/Vol] 17 mg/dL Normal 7-25 [facility] Comment on above: Performed By: #### L [id number] ####[facility] ([facility])[address] [place] [address] UREA NITROGEN/CREATININ E (MASS RATIO) IN SER/PLAS 19.8 [facility] Comment on above: Performed By: #### L [id number] ####[facility] ([facility])[address] [place] [address] DSon 09-04-2023 DS [facility] MAGNESIUMon 09-04-2023 Magnesium [Mass/Vol] 1.8 mg/dL Low 1.9-2.7 [facility] Comment on above: Performed By: #### L [id number] ####[facility] ([facility])[address] [place] [address] NURSNOTEon 09-04-2023 NURSNOTE Hands And Dial Inspector reviewed disc harge instructions with patient and his spouse. Hands And Dial Inspector reviewed new medications and when to administer with patient and his spouse. Hands And Dial Inspector then transported patient via wheelchair to main entrance with all personal belongings. Normal [facility] NURSNOTE Normal [facility] NURSNOTE Patient returned to unit. Normal [facility] NURSNOTE Patient off unit for testing. Normal [facility] TROPONIN Ion 09-04-2023 Troponin I.cardiac [Mass/Vol] 0.04 ng/mL Normal 0.00-0.04 [facility] Comment on above: Performed By: #### L [id number] ####[facility] ([facility])[address] [place] [address] [id number] 09-03-2023 [id number] [facility] 30on 09-03-2023 30 Normal [facility] 30 Normal [facility] ANESon 09-03-2023 ANES Normal [facility] ANES Normal [facility] BASIC METABOLIC PANELon 08-15 Anion gap [Moles/Vol] 10 mmol/L Normal 7-20 [facility] Comment on above: Performed By: #### L [id number] ####[facility] (BEAKER)[address] [place] [address] Calcium [Mass/Vol] 8.9 mg/dL Normal 8.6-10.3 [facility] Comment on above: Performed By: #### L [id number] ####[facility] (BEAKER)[address] [place] [address] Chloride [Moles/Vol] 106 mmol/L Normal 98-107 [facility] Comment on above: Performed By: #### L [id number] ####[facility] (BEAKER)[address] [place] [address] CO2 [Moles/Vol] 24 mmol/L Normal 21-31 [facility] Comment on above: Performed By: #### L [id number] ####[facility] (BEAKER)[address] [facility] [address] Creatinine [Mass/Vol] 1.14 mg/dL Normal 0.70-1.30 [facility] Comment on above: Performed By: #### L [id number] ####[facility] (BEAKER)[address] [place] [address] GLOMERULAR FILTRATION RATE ML/MIN/1.73 SQ M.PREDICTED 69.6 mL/min/1.73m*2 Normal >60.0 [facility] Comment on above: Result Comment: [facility]???s estimated glomerular filtration rate (eGFR) will no [...] of individuals. Performed By: #### L [id number] ####[facility] ([facility] [place] [address] Glucose [Mass/Vol] 107 mg/dL High 70-100 [facility] Comment on above: Performed By: #### L [id number] ####[facility] ([facility])[address] [place] [address] Potassium [Moles/Vol] 4.0 mmol/L Normal 3.5-5.1 [facility] Comment on above: Performed By: #### L [id number] ####[facility] ([facility])[address] [place] [address] Sodium [Moles/Vol] 136 mmol/L Normal 136-145 [facility] Comment on above: Performed By: #### L [id number] ####[facility] ([facility])[address] [place] [address] Urea nitrogen [Mass/Vol] 23 mg/dL Normal 7-25 [facility] Comment on above: Performed By: #### L [id number] ####[facility] ([facility])[address] [place] [address] UREA NITROGEN/CREATININ E (MASS RATIO) IN SER/PLAS 20.2 Normal [facility] Comment on above: Performed By: #### L [id number] ####[facility] ([facility])[address] [place] [address] CBCon 09-03-2023 Erythrocyte distribution width (RBC) [Ratio] 13.9 % Normal 11.5-15.0 [facility] Comment on above: Performed By: #### L [id number] ####[facility] ([facility] [place] [address] ERYTHROCYTE MEAN CORPUSCULAR HEMOGLOBIN CONCENTRATION (G/DL) BY AUTOMATED 34.1 g/dL Normal 32.0-35.0 [facility] Comment on above: Performed By: #### L [id number] ####[facility] ([facility])[address] [place] [address] Hematocrit (Bld) [Volume fraction] 39.3 % Normal 39.0-55.0 [facility] Comment on above: Performed By: #### L [id number] ####[facility] ([facility])[address] [place] [address] Hemoglobin (Bld) [Mass/Vol] 13.4 g/dL Normal 13.0-17.0 [facility] Comment on above: Performed By: #### L [id number] ####[facility] ([facility])[address] [place] [address] MCH (RBC) [Entitic mass] 29.3 pg Normal 27.0-33.0 [facility] Comment on above: Performed By: #### L [id number] ####[facility] ([facility])[address] [place] [address] MCV (RBC) [Entitic vol] 86.0 fL Normal 82.0-98.0 [facility] Comment on above: Performed By: #### L [id number] ####[facility] ([facility])[address] [place] [address] PLATELETS (10*3/UL) IN BLOOD AUTOMATED COUNT 203 10*3/uL Normal 150-400 [facility] Comment on above: Performed By: #### L [id number] ####[facility] ([facility])[address] [place] [address] RBC (Bld) [#/Vol] 4.57 10*6/uL Normal 4.20-5.70 [facility] Comment on above: Performed By: #### L [id number] ####[facility] ([facility])[address] [place] [address] WBC (Bld) [#/Vol] 7.63 10*3/uL Normal 4.00-10.60 [facility] Comment on above: Performed By: #### L [id number] ####[facility] ([facility])[address] [place] [address] CONSULTon 09-03-2023 CONSULT Normal [facility] HEPATIC FUNCTION PANELon Albumin [Mass/Vol] 3.8 g/dL Normal 3.5-5.7 [facility] Comment on above: Performed By: #### L [id number] ####[facility] ([facility])[address] [place] [address] ALP [Catalytic activity/Vol] 110 U/L High 34-104 [facility] Comment on above: Performed By: #### L [id number] ####[facility] ([facility])[address] [place] [address] ALT [Catalytic activity/Vol] 10 U/L Normal 7-52 [facility] Comment on above: Performed By: #### L [id number] ####[facility] ([facility])[address] [place] [address] AST [Catalytic activity/Vol] 14 U/L Normal 13-39 [facility] Comment on above: Performed By: #### L [id number] ####[facility] ([facility])[address] [place] [address] Bilirubin [Mass/Vol] 0.4 mg/dL Normal 0.3-1.0 [facility] Comment on above: Performed By: #### L [id number] ####[facility] ([facility])[address] [place] [address] Magnesium [Mass/Vol] 0.1 mg/dL Normal 0-0.2 [facility] Comment on above: Performed By: #### L [id number] ####[facility] ([facility])[address] [place] [address] Protein [Mass/Vol] 6.3 g/dL Normal 6.0-8.3 [facility] Comment on above: Performed By: #### L [id number] ####[facility] ([facility])[address] [place] [address] 30on 09-02-2023 30 Normal [facility] 30 Normal [facility] 30 Normal [facility] ANTI-XA (HEPARIN LEVEL)on HEPARIN UNFRACTIONATED (U/ML) IN PPP BY CHROMOGENIC METHOD 0.40 IU/mL Normal 0.3-0.7 [facility] Comment on above: Order Comment: Check anti-Xa level every 6 hours while on heparin infusion, or per protocol. Result Comment: [place] roxaban and Apixaban will interfere with the anti Xa assay used to monitor UFH and LMWH. Performed By: #### L [id number] ####[facility] ([facility])[address] [place] [address] HEPARIN UNFRACTIONATED (U/ML) IN PPP BY CHROMOGENIC METHOD 0.56 IU/mL Normal 0.3-0.7 [facility] Comment on above: Order Comment: Check anti-Xa level every 6 hours while on heparin infusion, or per protocol. Result Comment: [place] roxaban and Apixaban will interfere with the anti Xa assay used to monitor UFH and LMWH. Performed By: #### L [id number] ####[facility] ([facility])[address] [place] [address] APTTon 09-02-2023 ACTIVATED PARTIAL THROMBOPLASTIN TIME IN PPP BY COAGULATION ASSAY 35.0 Seconds Normal 25.0-35.0 [facility] Comment on above: Result Comment: Clin ical significance of the APTT is questionable in the presence of heparin. Performed By: #### L [id number] ####[facility] ([facility])[address] [place] [address] BASIC METABOLIC PANELon 08-15 Anion gap [Moles/Vol] 10 mmol/L Normal 7-20 [facility] Comment on above: Performed By: #### L [id number] ####[facility] ([facility])[address] [place] [address] Calcium [Mass/Vol] 8.9 mg/dL Normal 8.6-10.3 [facility] Comment on above: Performed By: #### L [id number] ####[facility] (BEAKER)[address] [place] [address] Chloride [Moles/Vol] 107 mmol/L Normal 98-107 [facility] Comment on above: Performed By: #### L [id number] ####[facility] (BEAKER)[address] [place] [address] CO2 [Moles/Vol] 21 mmol/L Normal 21-31 [facility] Comment on above: Performed By: #### L [id number] ####[facility] (BEAKER)[address] [place] [address] Creatinine [Mass/Vol] 0.99 mg/dL Normal 0.70-1.30 [facility] Comment on above: Performed By: #### L [id number] ####[facility] ([facility] [place] [address] GLOMERULAR FILTRATION RATE ML/MIN/1.73 SQ M.PREDICTED 82.5 mL/min/1.73m*2 Normal >60.0 [facility] Comment on above: Result Comment: [facility]???s estimated glomerular filtration rate (eGFR) will no [...] of individuals. Performed By: #### L [id number] ####[facility] (BEAKER)[address] [place] [address] Glucose [Mass/Vol] 176 mg/dL High 70-100 [facility] Comment on above: Performed By: #### L [id number] ####[facility] (BEAKER)[address] [place] [address] Potassium [Moles/Vol] 3.8 mmol/L Normal 3.5-5.1 [facility] Comment on above: Performed By: #### L [id number] ####[facility] ([facility])[address] [place] [address] Sodium [Moles/Vol] 134 mmol/L Low 136-145 [facility] Comment on above: Performed By: #### L [id number] ####[facility] ([facility])[address] [place] [address] Urea nitrogen [Mass/Vol] 20 mg/dL Normal 7-25 [facility] Comment on above: Performed By: #### L [id number] ####[facility] ([facility])[address] [place] [address] UREA NITROGEN/CREATININ E (MASS RATIO) IN SER/PLAS 20.2 Normal [facility] Comment on above: Performed By: #### L [id number] ####[facility] ([facility])[address] [place] [address] CBCon 09-02-2023 Erythrocyte distribution width (RBC) [Ratio] 14.1 % Normal 11.5-15.0 [facility] Comment on above: Performed By: #### L [id number] ####[facility] ([facility])[address] [place] [address] ERYTHROCYTE MEAN CORPUSCULAR HEMOGLOBIN CONCENTRATION (G/DL) BY AUTOMATED 34.7 g/dL Normal 32.0-35.0 [facility] Comment on above: Performed By: #### L [id number] ####[facility] ([facility])[address] [place] [address] Hematocrit (Bld) [Volume fraction] 40.6 % Normal 39.0-55.0 [facility] Comment on above: Performed By: #### L [id number] ####[facility] ([facility] [place] [address] Hemoglobin (Bld) [Mass/Vol] 14.1 g/dL Normal 13.0-17.0 [facility] Comment on above: Performed By: #### L [id number] ####[facility] ([facility] [place] [address] MCH (RBC) [Entitic mass] 29.6 pg Normal 27.0-33.0 [facility] Comment on above: Performed By: #### L [id number] ####[facility] ([facility])[address] [place] [address] MCV (RBC) [Entitic vol] 85.3 fL Normal 82.0-98.0 [facility] Comment on above: Performed By: #### L [id number] ####[facility] ([facility])[address] [place] [address] PLATELETS (10*3/UL) IN BLOOD AUTOMATED COUNT 215 10*3/uL Normal 150-400 [facility] Comment on above: Performed By: #### L [id number] ####[facility] ([facility])[address] [place] [address] RBC (Bld) [#/Vol] 4.76 10*6/uL Normal 4.20-5.70 [facility] Comment on above: Performed By: #### L [id number] ####[facility] ([facility])[address] [place] [address] WBC (Bld) [#/Vol] 7.77 10*3/uL Normal 4.00-10.60 [facility] Comment on above: Performed By: #### L [id number] ####[facility] ([facility])[address] [place] [address] CONSULTon 09-02-2023 CONSULT Normal [facility] MAGNESIUMon 09-02-2023 Magnesium [Mass/Vol] 1.7 mg/dL Low 1.9-2.7 [facility] Comment on above: Performed By: #### L [id number] ####[facility] ([facility])[address] [place] [address] PHOSPHORUSon 09-02-2023 Magnesium [Mass/Vol] 3.3 mg/dL Normal 2.5-5.0 [facility] Comment on above: Performed By: #### L [id number] ####[facility] ([facility])[address] [place] [address] POCT GLUCOSE METER UNSOLICIT ED RESULTSon 09-02-2023 Glucose [Mass/Vol] 97 mg/dL Normal 70-105 [facility] Comment on above: Order Comment: Waive d Testing in the ED is performed under the ED CLIA certificate #[id number]. Result Comment: [email or web address] Performed By: #### L [id number] ####[facility] ([facility])[address] [place] [address] Glucose [Mass/Vol] 117 mg/dL High 70-105 [facility] Comment on above: Order Comment: Waive d Testing in the ED is performed under the ED CLIA certificate #[id number]. Result Comment: [email or web address] Performed By: #### L [id number] ####[facility] ([facility])[address] [place] [address] Glucose [Mass/Vol] 145 mg/dL High 70-105 [facility] Comment on above: Order Comment: Waive d Testing in the ED is performed under the ED CLIA certificate #[id number]. Result Comment: [email or web address] Performed By: #### L [id number] ####[facility] ([facility])[address] [place] [address] Glucose [Mass/Vol] 151 mg/dL High 70-105 [facility] Comment on above: Order Comment: Waive d Testing in the ED is performed under the ED CLIA certificate #[id number]. Result Comment: [email or web address] Performed By: #### L [id number] ####[facility] ([facility])[address] [place] [address] PROTIME-INRon 09-02-2023 INR IN PPP BY COAGULATION ASSAY 1.09 Normal 0.90-1.10 [facility] Comment on above: Result Comment: ACCC P [...] CHEST 1995;[id number]. Performed By: #### L [id number] ####[facility] [place] [address] PROTHROMBIN TIME (PT) IN PPP BY COAGULATION ASSAY 14.2 Seconds Normal 12.3-14.8 [facility] Comment on above: Performed By: #### L [id number] ####[facility] [place] [address] TROPONIN Ion 09-02-2023 Troponin I.cardiac [Mass/Vol] 0.06 ng/mL High 0.00-0.04 [facility] Comment on above: Performed By: #### L [id number] ####[facility] ([facility])[address] [place] [address] Troponin I.cardiac [Mass/Vol] 0.08 ng/mL High 0.00-0.04 [facility] Comment on above: Performed By: #### L [id number] ####[facility] ([employer])[address] [place] [address] Troponin I.cardiac [Mass/Vol] 0.10 ng/mL High 0.00-0.04 [facility] Comment on above: Performed By: #### L [id number] ####[facility] (BEAKER)[address] [place] [address] 30on 09-01-2023 30 The patient is Moder ately Stable - Low risk of patient condition declining or worsening The patient's goals for the shift include comfort The clinical goals for the shift include safety Normal [facility] HPon 09-01-2023 HP [facility] 36on 08-29-2023 36 Pt informed [facility] Orders Onlyon 08-01-2023 Orders Only [id number] Ortiz,Robert Sr. 1955 M Date Provider Department Center 08/01/2023 MAYELIN HAMMONDS Family History Family history unknown: Yes [facility] Documentationon 07-30-2023 Documentation [id number] Ortiz,Robert Sr. 1955 M Date Provider Department Center 07/30/2023 120MAYELIN MOULTON Family History Family history unknown: Yes [facility] 37on 07-18-2023 37 [facility] Follow-Upon 07-18-2023 Follow-Up [facility] 30on 07-09-2023 30 [facility] BASIC METABOLIC PANELon 06-18 Anion gap [Moles/Vol] 11 mmol/L Normal 7-20 [facility] Comment on above: Performed By: #### L [id number] ####[facility] (BEAKER)[address] [place] [address] Calcium [Mass/Vol] 9.0 mg/dL Normal 8.6-10.3 [facility] Comment on above: Performed By: #### L [id number] ####[facility] ([facility] [place] [address] Chloride [Moles/Vol] 105 mmol/L Normal 98-107 [facility] Comment on above: Performed By: #### L [id number] ####[facility] (BEAKER)[address] [place] [address] CO2 [Moles/Vol] 22 mmol/L Normal 21-31 [facility] Comment on above: Performed By: #### L [id number] ####[facility] ([facility])[address] [place] [address] Creatinine [Mass/Vol] 0.89 mg/dL Normal 0.70-1.30 [facility] Comment on above: Performed By: #### L [id number] ####[facility] ([facility])[address] [place] [address] GLOMERULAR FILTRATION RATE ML/MIN/1.73 SQ M.PREDICTED 92.8 mL/min/1.73m*2 Normal >60.0 [facility] Comment on above: Result Comment: [facility]???s estimated glomerular filtration rate (eGFR) will no [...] of individuals. Performed By: #### L [id number] ####[facility] ([facility])[address] [place] [address] Glucose [Mass/Vol] 102 mg/dL High 70-100 [facility] Comment on above: Performed By: #### L [id number] ####[facility] ([facility])[address] [place] [address] Potassium [Moles/Vol] 3.5 mmol/L Normal 3.5-5.1 [facility] Comment on above: Performed By: #### L [id number] ####[facility] ([facility])[address] [place] [address] Sodium [Moles/Vol] 134 mmol/L Low 136-145 [facility] Comment on above: Performed By: #### L [id number] ####[facility] ([facility])[address] [place] [address] Urea nitrogen [Mass/Vol] 16 mg/dL Normal 7-25 [facility] Comment on above: Performed By: #### L [id number] ####[facility] ([facility])[address] [place] [address] UREA NITROGEN/CREATININ E (MASS RATIO) IN SER/PLAS 18.0 Normal [facility] Comment on above: Performed By: #### L [id number] ####[facility] ([facility])[address] [place] [address] DSon 07-09-2023 DS Normal [facility] Orders Onlyon 07-09-2023 Orders Only [id number] Gui Ortiz Sr. 1955 M Date Provider Department Center 07/09/2023 MAYELIN HAMMONDS [facility] Family History Family history unknown: Yes Normal [facility] 30on 07-08-2023 30 The patient is Moder ately Stable - Low risk of patient condition declining or worsening The patient's goals for the shift include comfort The clinical goals for the shift include vss Normal [facility] ANESon 07-08-2023 ANES [facility] ANTI-XA (HEPARIN LEVEL)on HEPARIN UNFRACTIONATED (U/ML) IN PPP BY CHROMOGENIC METHOD 0.39 IU/mL Normal 0.3-0.7 [facility] Comment on above: Order Comment: Check anti-Xa level every 6 hours while on heparin infusion, or per protocol. Result Comment: [place] roxaban and Apixaban will interfere with the anti Xa assay used to monitor UFH and LMWH. Performed By: #### L [id number] ####[facility] ([facility])[address] [place] [address] BASIC METABOLIC PANELon 06-18 Anion gap [Moles/Vol] 11 mmol/L Normal 7-20 [facility] Comment on above: Performed By: #### L [id number] ####[facility] ([facility])[address] [place] [address] Calcium [Mass/Vol] 10.0 mg/dL Normal 8.6-10.3 [facility] Comment on above: Performed By: #### L [id number] ####[facility] ([facility])[address] [place] [address] Chloride [Moles/Vol] 105 mmol/L Normal 98-107 [facility] Comment on above: Performed By: #### L [id number] ####[facility] ([facility])[address] [place] [address] CO2 [Moles/Vol] 26 mmol/L Normal 21-31 [facility] Comment on above: Performed By: #### L [id number] ####[facility] ([facility])[address] [place] [address] Creatinine [Mass/Vol] 1.02 mg/dL Normal 0.70-1.30 [facility] Comment on above: Performed By: #### L [id number] ####[facility] ([facility])[address] [place] [address] GLOMERULAR FILTRATION RATE ML/MIN/1.73 SQ M.PREDICTED 79.6 mL/min/1.73m*2 Normal >60.0 [facility] Comment on above: Result Comment: The [facility]???s estimated glomerular filtration rate (eGFR) will no [...] of individuals. Performed By: #### L [id number] ####[facility] ([facility] [place] [address] Glucose [Mass/Vol] 112 mg/dL High 70-100 [facility] Comment on above: Performed By: #### L [id number] ####[facility] ([facility])[address] [place] [address] Potassium [Moles/Vol] 4.5 mmol/L Normal 3.5-5.1 [facility] Comment on above: Performed By: #### L [id number] ####[facility] ([facility])[address] [place] [address] Sodium [Moles/Vol] 137 mmol/L Normal 136-145 [facility] Comment on above: Performed By: #### L [id number] ####[facility] ([facility])[address] [place] [address] Urea nitrogen [Mass/Vol] 15 mg/dL Normal 7-25 [facility] Comment on above: Performed By: #### L [id number] ####[facility] ([facility])[address] [place] [address] UREA NITROGEN/CREATININ E (MASS RATIO) IN SER/PLAS 14.7 Normal [facility] Comment on above: Performed By: #### L [id number] ####[facility] ([facility])[address] [place] [address] CBCon 07-08-2023 Erythrocyte distribution width (RBC) [Ratio] 13.5 % Normal 11.5-15.0 [facility] Comment on above: Performed By: #### L [id number] ####[facility] ([facility])[address] [place] [address] ERYTHROCYTE MEAN CORPUSCULAR HEMOGLOBIN CONCENTRATION (G/DL) BY AUTOMATED 33.0 g/dL Normal 32.0-35.0 [facility] Comment on above: Performed By: #### L [id number] ####[facility] ([facility])[address] [place] [address] Hematocrit (Bld) [Volume fraction] 39.4 % Normal 39.0-55.0 [facility] Comment on above: Performed By: #### L [id number] ####[facility] ([facility])[address] [place] [address] Hemoglobin (Bld) [Mass/Vol] 13.0 g/dL Normal 13.0-17.0 [facility] Comment on above: Performed By: #### L [id number] ####[facility] ([facility])[address] [place] [address] MCH (RBC) [Entitic mass] 29.1 pg Normal 27.0-33.0 [facility] Comment on above: Performed By: #### L [id number] ####[facility] ([facility])[address] [place] [address] MCV (RBC) [Entitic vol] 88.3 fL Normal 82.0-98.0 [facility] Comment on above: Performed By: #### L [id number] ####[facility] ([facility])[address] [place] [address] PLATELETS (10*3/UL) IN BLOOD AUTOMATED COUNT 248 10*3/uL Normal 150-400 [facility] Comment on above: Performed By: #### L [id number] ####[facility] ([facility])[address] [place] [address] RBC (Bld) [#/Vol] 4.46 10*6/uL Normal 4.20-5.70 [facility] Comment on above: Performed By: #### L [id number] ####[facility] ([facility])[address] [place] [address] WBC (Bld) [#/Vol] 7.02 10*3/uL Normal 4.00-10.60 [facility] Comment on above: Performed By: #### L [id number] ####[facility] ([facility])[address] [place] [address] HPon 07-08-2023 HP H&P reviewed. The pa tient was examined and there are changes to the H&P, specifically, the L radial pulse is absent as are the distal PT and DP pulses. Normal [facility] LIPID PANELon 07-08-2023 CHOL/HDL 2.6 mg/dL Normal [facility] Comment on above: Performed By: #### L [id number] ####[facility] ([facility] [place] [address] Cholesterol [Mass/Vol] 105 mg/dL Low 120-200 [facility] Comment on above: Performed By: #### L [id number] ####[facility] ([facility])[address] [place] [address] Magnesium [Mass/Vol] 63 mg/dL Normal 40-149 [facility] Comment on above: Result Comment: TRIG LYCERIDE REFERENCE RANGE:20 YEARS AND OLDER CARDIOVASCULAR RISKLESS THAN 150 mg/dL LOW [id number] TO 199 mg/dL BORDERLINE VLUR689 mg/dL AND GREATER HIGH RISK Performed By: #### L [id number] ####[facility] ([facility])[address] [place] [address] Magnesium [Mass/Vol] 52 mg/dL Normal 0-160 [facility] Comment on above: Performed By: #### L [id number] ####[facility] ([facility])[address] [place] [address] Magnesium [Mass/Vol] 40 mg/dL Normal 23-92 [facility] Comment on above: Performed By: #### L [id number] ####[facility] ([facility])[address] [place] [address] NON HDL CHOL. (LDL+VLDL) 65 Normal [facility] Comment on above: Performed By: #### L [id number] ####[facility] ([facility])[address] [place] [address] TOTAL VLDL-C 13 mg/dL Normal 0-40 [facility] Comment on above: Performed By: #### L [id number] ####[facility] ([facility])[address] [place] [address] NURSNOTEon 07-08-2023 NURSNOTE Normal [facility] 30on 07-07-2023 30 Normal [facility] ANTI-XA (HEPARIN LEVEL)on HEPARIN UNFRACTIONATED (U/ML) IN PPP BY CHROMOGENIC METHOD 0.35 IU/mL Normal 0.3-0.7 [facility] Comment on above: Result Comment: [place] roxaban and Apixaban will interfere with the anti Xa assay used to monitor UFH and LMWH. Performed By: #### L [id number] ####[facility] ([facility])[address] [place] [address] HEPARIN UNFRACTIONATED (U/ML) IN PPP BY CHROMOGENIC METHOD 0.35 IU/mL Normal 0.3-0.7 [facility] Comment on above: Order Comment: Check anti-Xa level every 6 hours while on heparin infusion, or per protocol. Result Comment: [place] roxaban and Apixaban will interfere with the anti Xa assay used to monitor UFH and LMWH. Performed By: #### L [id number] ####[facility] ([facility])[address] [place] [address] BASIC METABOLIC PANELon - Anion gap [Moles/Vol] 12 mmol/L Normal 7-20 [facility] Comment on above: Performed By: #### L [id number] ####[facility] ([facility])[address] [place] [address] Calcium [Mass/Vol] 9.0 mg/dL Normal 8.6-10.3 [facility] Comment on above: Performed By: #### L [id number] ####[facility] ([facility])[address] [place] [address] Chloride [Moles/Vol] 106 mmol/L Normal 98-107 [facility] Comment on above: Performed By: #### L [id number] ####[facility] ([facility] [place] [address] CO2 [Moles/Vol] 22 mmol/L Normal 21-31 [facility] Comment on above: Performed By: #### L [id number] ####[facility] ([facility] [place] [address] Creatinine [Mass/Vol] 0.79 mg/dL Normal 0.70-1.30 [facility] Comment on above: Performed By: #### L [id number] ####[facility] ([facility])[address] [place] [address] GLOMERULAR FILTRATION RATE ML/MIN/1.73 SQ M.PREDICTED 96.2 mL/min/1.73m*2 Normal >60.0 [facility] Comment on above: Result Comment: The [facility]???s estimated glomerular filtration rate (eGFR) will no [...] of individuals. Performed By: #### L [id number] ####[facility] ([facility])[address] [place] [address] Glucose [Mass/Vol] 113 mg/dL High 70-100 [facility] Comment on above: Performed By: #### L [id number] ####[facility] ([facility])[address] [place] [address] Potassium [Moles/Vol] 3.6 mmol/L Normal 3.5-5.1 [facility] Comment on above: Performed By: #### L [id number] ####[facility] ([facility])[address] [place] [address] Sodium [Moles/Vol] 136 mmol/L Normal 136-145 [facility] Comment on above: Performed By: #### L [id number] ####[facility] ([facility])[address] [place] [address] Urea nitrogen [Mass/Vol] 16 mg/dL Normal 7-25 [facility] Comment on above: Performed By: #### L [id number] ####[facility] ([facility])[address] [facility] [place] [address] UREA NITROGEN/CREATININ E (MASS RATIO) IN SER/PLAS 20.3 Normal [facility] Comment on above: Performed By: #### L [id number] ####[facility] ([facility])[address] [place] [address] 30on 07-06-2023 30 Normal [facility] 30 The patient is Moder ately Stable - Low risk of patient condition declining or worsening The patient's goals for the shift include comfort The clinical goals for the shift include VSS Normal [facility] ANTI-XA (HEPARIN LEVEL)on HEPARIN UNFRACTIONATED (U/ML) IN PPP BY CHROMOGENIC METHOD 0.34 IU/mL Normal 0.3-0.7 [facility] Comment on above: Order Comment: Check anti-Xa level every 6 hours while on heparin infusion, or per protocol. Result Comment: [place] roxaban and Apixaban will interfere with the anti Xa assay used to monitor UFH and LMWH. Performed By: #### L [id number] ####[facility] ([facility])[address] [place] [address] HEPARIN UNFRACTIONATED (U/ML) IN PPP BY CHROMOGENIC METHOD 0.22 IU/mL Low 0.3-0.7 [facility] Comment on above: Order Comment: Check anti-Xa level every 6 hours while on heparin infusion, or per protocol. Result Comment: [place] roxaban and Apixaban will interfere with the anti Xa assay used to monitor UFH and LMWH. Performed By: #### L [id number] ####[facility] ([facility])[address] [place] [address] HEPARIN UNFRACTIONATED (U/ML) IN PPP BY CHROMOGENIC METHOD 0.16 IU/mL Invalid Interpretation Code 0.3-0.7 [facility] Comment on above: Order Comment: Check anti-Xa level every 6 hours while on heparin infusion, or per protocol. Result Comment: [place] roxaban and Apixaban will interfere with the anti Xa assay used to monitor UFH and LMWH. Performed By: #### L [id number] ####[facility] ([facility] [place] [address] CBCon 07-06-2023 Erythrocyte distribution width (RBC) [Ratio] 13.7 % Normal 11.5-15.0 [facility] Comment on above: Performed By: #### L [id number] ####[facility] ([facility] [place] [address] ERYTHROCYTE MEAN CORPUSCULAR HEMOGLOBIN CONCENTRATION (G/DL) BY AUTOMATED 34.3 g/dL Normal 32.0-35.0 [facility] Comment on above: Performed By: #### L [id number] ####[facility] ([facility])[address] [place] [address] Hematocrit (Bld) [Volume fraction] 38.8 % Low 39.0-55.0 [facility] Comment on above: Performed By: #### L [id number] ####[facility] ([facility] [place] [address] Hemoglobin (Bld) [Mass/Vol] 13.3 g/dL Normal 13.0-17.0 [facility] Comment on above: Performed By: #### L [id number] ####[facility] ([facility] [place] [address] MCH (RBC) [Entitic mass] 29.6 pg Normal 27.0-33.0 [facility] Comment on above: Performed By: #### L [id number] ####[facility] ([facility] [place] [address] MCV (RBC) [Entitic vol] 86.4 fL Normal 82.0-98.0 [facility] Comment on above: Performed By: #### L [id number] ####[facility] ([facility] [place] [address] PLATELETS (10*3/UL) IN BLOOD AUTOMATED COUNT 242 10*3/uL Normal 150-400 [facility] Comment on above: Performed By: #### L [id number] ####[facility] ([facility])[address] [place] [address] RBC (Bld) [#/Vol] 4.49 10*6/uL Normal 4.20-5.70 [facility] Comment on above: Performed By: #### L [id number] ####[facility] ([facility])[address] [place] [address] WBC (Bld) [#/Vol] 6.59 10*3/uL Normal 4.00-10.60 [facility] Comment on above: Performed By: #### L [id number] ####[facility] ([facility])[address] [place] [address] CONSULTon 07-06-2023 CONSULT Normal [facility] HPon 07-06-2023 HP Normal [facility] TROPONIN Ion 07-06-2023 Troponin I.cardiac [Mass/Vol] 0.03 ng/mL Normal 0.00-0.04 [facility] Comment on above: Performed By: #### L [id number] ####[facility] ([facility])[address] [place] [address] Troponin I.cardiac [Mass/Vol] 0.05 ng/mL High 0.00-0.04 [facility] Comment on above: Performed By: #### L [id number] ####[facility] ([facility])[address] [place] [address] Troponin I.cardiac [Mass/Vol] 0.06 ng/mL High 0.00-0.04 [facility] Comment on above: Performed By: #### L [id number] ####[facility] ([facility])[address] [place] [address] 30on 07-05-2023 30 Normal [facility] 30 Normal [facility] ANTI-XA (HEPARIN LEVEL)on HEPARIN UNFRACTIONATED (U/ML) IN PPP BY CHROMOGENIC METHOD 0.17 IU/mL Low 0.3-0.7 [facility] Comment on above: Order Comment: Check anti-Xa level every 6 hours while on heparin infusion, or per protocol. Result Comment: [place] roxaban and Apixaban will interfere with the anti Xa assay used to monitor UFH and LMWH. Performed By: #### L [id number] ####[facility] ([facility])[address] [place] [address] APTTon 07-05-2023 ACTIVATED PARTIAL THROMBOPLASTIN TIME IN PPP BY COAGULATION ASSAY 36.3 Seconds High 25.0-35.0 [facility] Comment on above: Order Comment: Basel ine aPTT before initiating heparin infusion. Result Comment: Clin ical significance of the APTT is questionable in the presence of heparin. Performed By: #### L [id number] ####[facility] ([facility])[address] [place] [address] B-TYPE NATRIURETIC PEPTIDEon 07-05-2023 Natriuretic peptide B (Bld) [Mass/Vol] 346 pg/mL High 0-100 [facility] Comment on above: Performed By: #### L [id number] ####[facility] ([facility])[address] [place] [address] CBC WITH AUTO DIFFERENTIALon 07-05-2023 Basophils (Bld) [#/Vol] 0.03 10*3/uL Normal 0.00-0.20 [facility] Comment on above: Performed By: #### L [id number] ####[facility] ([facility])[address] [place] [address] Basophils/100 WBC (Bld) 0.5 % Normal 0.0-1.0 [facility] Comment on above: Performed By: #### L [id number] ####[facility] ([facility])[address] [place] [address] Eosinophils (Bld) [#/Vol] 0.15 10*3/uL Normal 0.00-0.50 [facility] Comment on above: Performed By: #### L [id number] ####[facility] ([facility])[address] [place] [address] Eosinophils/100 WBC (Bld) 2.3 % Normal 0.0-6.0 [facility] Comment on above: Performed By: #### L [id number] ####[facility] ([facility])[address] [place] [address] Erythrocyte distribution width (RBC) [Ratio] 13.6 % Normal 11.5-15.0 [facility] Comment on above: Performed By: #### L [id number] ####[facility] ([facility])[address] [address] ERYTHROCYTE MEAN CORPUSCULAR HEMOGLOBIN CONCENTRATION (G/DL) BY AUTOMATED 34.1 g/dL Normal 32.0-35.0 [facility] Comment on above: Performed By: #### L [id number] ####[facility] ([facility])[address] [place] [address] Hematocrit (Bld) [Volume fraction] 41.7 % Normal 39.0-55.0 [facility] Comment on above: Performed By: #### L [id number] ####[facility] ([facility])[address] [place] [address] Hemoglobin (Bld) [Mass/Vol] 14.2 g/dL Normal 13.0-17.0 [facility] Comment on above: Performed By: #### L [id number] ####[facility] ([facility])[address] [place] [address] Immature granulocytes (Bld) [#/Vol] 0.01 10*3/uL Normal 0.00-0.20 [facility] Comment on above: Performed By: #### L [id number] ####[facility] ([facility])[address] [place] [address] Immature granulocytes/100 WBC (Bld) 0.2 % Normal 0.0-1.0 [facility] Comment on above: Performed By: #### L [id number] ####[facility] ([facility])[address] [place] [address] Lymphocytes (Bld) [#/Vol] 2.12 10*3/uL Normal 1.20-4.00 [facility] Comment on above: Performed By: #### L [id number] ####[facility] ([facility])[address] [place] [address] Lymphocytes/100 WBC (Bld) 32.7 % Normal 20.0-45.0 [facility] Comment on above: Performed By: #### L [id number] ####[facility] [place] [address] MCH (RBC) [Entitic mass] 29.3 pg Normal 27.0-33.0 [facility] Comment on above: Performed By: #### L [id number] ####[facility] ([facility] [place] [address] MCV (RBC) [Entitic vol] 86.2 fL Normal 82.0-98.0 [facility] Comment on above: Performed By: #### L [id number] ####[facility] ([facility])[address] [place] [address] Monocytes (Bld) [#/Vol] 0.64 10*3/uL Normal 0.10-1.00 [facility] Comment on above: Performed By: #### L [id number] ####[facility] ([facility] [place] [address] Monocytes/100 WBC (Bld) 9.9 % Normal 5.0-12.0 [facility] Comment on above: Performed By: #### L [id number] ####[facility] ([facility] [place] [address] Neutrophils (Bld) [#/Vol] 3.54 10*3/uL Normal 1.60-7.60 [facility] Comment on above: Performed By: #### L [id number] ####[facility] ([facility] [place] [address] Neutrophils/100 WBC (Bld) 54.4 % Normal 40.0-72.0 [facility] Comment on above: Performed By: #### L [id number] ####[facility] ([facility])[address] [place] [address] NRBC (PER 100 WBCS) BY AUTOMATED COUNT 0.0 % Normal 0 [facility] Comment on above: Performed By: #### L [id number] ####[facility] ([facility] [place] [address] PLATELETS (10*3/UL) IN BLOOD AUTOMATED COUNT 277 10*3/uL Normal 150-400 [facility] Comment on above: Performed By: #### L [id number] ####[facility] ([facility])[address] [place] [address] RBC (Bld) [#/Vol] 4.84 10*6/uL Normal 4.20-5.70 [facility] Comment on above: Performed By: #### L [id number] ####[facility] ([facility])[address] [place] [address] WBC (Bld) [#/Vol] 6.49 10*3/uL Normal 4.00-10.60 [facility] Comment on above: Performed By: #### L [id number] ####[facility] ([facility])[address] [place] [address] COMPREHENSIVE METABOLIC PANE Roddy 07-05-2023 Albumin [Mass/Vol] 3.9 g/dL Normal 3.5-5.7 [facility] Comment on above: Performed By: #### L [id number] ####[facility] ([facility])[address] [place] [address] ALP [Catalytic activity/Vol] 127 U/L High 34-104 [facility] Comment on above: Performed By: #### L [id number] ####[facility] ([facility] [place] [address] ALT [Catalytic activity/Vol] 10 U/L Normal 7-52 [facility] Comment on above: Performed By: #### L [id number] ####[facility] ([facility])[address] [place] [address] Anion gap [Moles/Vol] 14 mmol/L Normal 7-20 [facility] Comment on above: Performed By: #### L [id number] ####[facility] ([facility])[address] [place] [address] AST [Catalytic activity/Vol] 15 U/L Normal 13-39 [facility] Comment on above: Performed By: #### L [id number] ####[facility] [place] [address] Bilirubin [Mass/Vol] 0.4 mg/dL Normal 0.3-1.0 [facility] Comment on above: Performed By: #### L [id number] ####[facility] ([facility] [place] [address] Calcium [Mass/Vol] 9.4 mg/dL Normal 8.6-10.3 [facility] Comment on above: Performed By: #### L [id number] ####[facility] [place] [address] Chloride [Moles/Vol] 106 mmol/L Normal 98-107 [facility] Comment on above: Performed By: #### L [id number] ####[facility] ([facility] [place] [address] CO2 [Moles/Vol] 23 mmol/L Normal 21-31 [facility] Comment on above: Performed By: #### L [id number] ####[facility] ([facility] [place] [address] Creatinine [Mass/Vol] 0.78 mg/dL Normal 0.70-1.30 [facility] Comment on above: Performed By: #### L [id number] ####[facility] ([facility] [place] [address] GLOMERULAR FILTRATION RATE ML/MIN/1.73 SQ M.PREDICTED 96.5 mL/min/1.73m*2 Normal >60.0 [facility] Comment on above: Result Comment: [facility]???s estimated glomerular filtration rate (eGFR) will no [...] of individuals. Performed By: #### L [id number] ####[facility] ([facility])[address] [place] [address] Glucose [Mass/Vol] 114 mg/dL High 70-100 [facility] Comment on above: Performed By: #### L [id number] ####[facility] ([facility])[address] [place] [address] Potassium [Moles/Vol] 3.5 mmol/L Normal 3.5-5.1 [facility] Comment on above: Performed By: #### L [id number] ####[facility] ([facility])[address] [place] [address] Protein [Mass/Vol] 7.5 g/dL Normal 6.0-8.3 [facility] Comment on above: Performed By: #### L [id number] ####[facility] ([facility])[address] [place] [address] Sodium [Moles/Vol] 139 mmol/L Normal 136-145 [facility] Comment on above: Performed By: #### L [id number] ####[facility] ([facility])[address] [place] [address] Urea nitrogen [Mass/Vol] 13 mg/dL Normal 7-25 [facility] Comment on above: Performed By: #### L [id number] ####[facility] ([facility])[address] [place] [address] UREA NITROGEN/CREATININ E (MASS RATIO) IN SER/PLAS 16.7 Normal [facility] Comment on above: Performed By: #### L [id number] ####[facility] ([facility])[address] [place] [address] HPon 07-05-2023 HP Normal [facility] MAGNESIUMon 07-05-2023 Magnesium [Mass/Vol] 1.8 mg/dL Low 1.9-2.7 [facility] Comment on above: Performed By: #### L [id number] ####[facility] ([facility])[address] [place] [address] NURSNOTEon 07-05-2023 YUMIKO Montes RN called admit amalia MONTES DE OCA, no new orders as of this time. Hands And Dial Inspector verified diet order, pt placing order for dinner. Will continue to monitor Normal [facility] PHOSPHORUSon 07-05-2023 Magnesium [Mass/Vol] 3.5 mg/dL Normal 2.5-5.0 [facility] Comment on above: Performed By: #### L [id number] ####[facility] ([facility])[address] [place] [address] POCT GLUCOSE METER UNSOLICIT ED RESULTSon 07-05-2023 Glucose [Mass/Vol] 163 mg/dL High 70-[facility] Comment on above: Order Comment: Waive d Testing in the ED is performed under the ED CLIA certificate #[id number]. Result Comment: cgra guille Performed By: #### L [id number] ####[facility] ([facility])[address] [place] [address] PROTIME-INRon 07-05-2023 INR IN PPP BY COAGULATION ASSAY 1.07 Normal 0.90-1.10 [facility] Comment on above: Result Comment: ACCC P [...] CHEST 1995;108:[id number]-246S. Performed By: #### L [id number] ####[facility] ([facility])[address] [place] [address] PROTHROMBIN TIME (PT) IN PPP BY COAGULATION ASSAY 13.9 Seconds Normal 12.3-14.8 [facility] Comment on above: Performed By: #### L [id number] ####[facility] ([facility])[address] [place] [address] TROPONIN Ion 07-05-2023 Troponin I.cardiac [Mass/Vol] 0.12 ng/mL Critically high 0.00-0.04 [facility] Comment on above: Result Comment: M-PA EVIOUS CRITICAL RESULTPrevious result verified on 07/05/20235 on specimen/case [id number] called with component Troponin I for procedure Troponin I with value 0.23 ng/mL. Performed By: #### L [id number] ####[facility] ([facility])[address] [facility] [address] Troponin I.cardiac [Mass/Vol] 0.23 ng/mL Critically high 0.00-0.04 [facility] Comment on above: Result Comment: M-CR ITICAL RESULT(S) REVIEWED, CALLED TO AND READ BACK BY MARY SIMMONS RN AT 2224M-TROPONIN INITIAL CRITICAL HIGH; RESPUN AND RETESTED Performed By: #### L [id number] ####[facility] ([facility])[address] [place] [address] Orders Onlyon 07-02-2023 Orders Only [id number] Gui Ortiz Sr. 1955 M Date Provider Department Center 07/02/2023 Fred2-ALLEN HUOSE DCC ONC DCC Family History Family history unknown: Yes Normal [facility] 29on 05-16-2023 29 Addended by: PASCUAL VELARDE on: 05/16/2023 03:51 PM Modules accepted: Orders Normal [facility] 29 Addended by: PASCUAL VELARDE on: 05/16/2023 03:50 PM Modules accepted: Orders Normal [facility] Follow-Upon 05-16-2023 Follow-Up Normal [facility] 36on 05-03-2023 36 Normal [facility] Telephoneon 05-03-2023 Telephone [phone] DejonSarinaGui 1955 M Date Provider Department Center 05/03/2023 Jake-SAEID KIMBALL HVCVASENDO [place] [facility] Family History Family history unknown: Yes Normal [facility] 36on 05-02-2023 36 Normal [facility] 30on 05-01-2023 30 Normal [facility] 30 Normal [facility] BASIC METABOLIC PANELon 04-17 Anion gap [Moles/Vol] 11 mmol/L Normal 7-20 [facility] Comment on above: Performed By: #### L [id number] ####[facility] ([facility])[address] [place] [address] Calcium [Mass/Vol] 8.4 mg/dL Low 8.6-10.3 [facility] Comment on above: Performed By: #### L [id number] ####[facility] ([facility])[address] [place] [address] Chloride [Moles/Vol] 109 mmol/L High 98-107 [facility] Comment on above: Performed By: #### L [id number] ####[facility] ([facility])[address] [place] [address] CO2 [Moles/Vol] 22 mmol/L Normal 21-31 [facility] Comment on above: Performed By: #### L [id number] ####[facility] ([facility])[address] [place] [address] Creatinine [Mass/Vol] 0.62 mg/dL Low 0.70-1.30 [facility] Comment on above: Performed By: #### L [id number] ####[facility] ([facility])[address] [place] [address] GLOMERULAR FILTRATION RATE ML/MIN/1.73 SQ M.PREDICTED 103.5 mL/min/1.73m*2 Normal >60.0 [facility] Comment on above: Result Comment: The [facility]???s estimated glomerular filtration rate (eGFR) will no [...] of individuals. Performed By: #### L [id number] ####[facility] ([facility])[address] [place] [address] Glucose [Mass/Vol] 98 mg/dL Normal 70-100 [facility] Comment on above: Performed By: #### L [id number] ####[facility] ([facility])[address] [place] [address] Potassium [Moles/Vol] 3.7 mmol/L Normal 3.5-5.1 [facility] Comment on above: Performed By: #### L [id number] ####[facility] ([facility])[address] [place] [address] Sodium [Moles/Vol] 138 mmol/L Normal 136-145 [facility] Comment on above: Performed By: #### L [id number] ####[facility] ([facility])[address] [facility] [place] [address] Urea nitrogen [Mass/Vol] 12 mg/dL Normal 7-25 [facility] Comment on above: Performed By: #### L [id number] ####[facility] ([facility])[address] [place] [address] UREA NITROGEN/CREATININ E (MASS RATIO) IN SER/PLAS 19.4 Normal [facility] Comment on above: Performed By: #### L [id number] ####[facility] ([facility])[address] [place] [address] CBCon 05-01-2023 Erythrocyte distribution width (RBC) [Ratio] 14.5 % Normal 11.5-15.0 [facility] Comment on above: Performed By: #### L [id number] ####[facility] ([facility])[address] [place] [address] ERYTHROCYTE MEAN CORPUSCULAR HEMOGLOBIN CONCENTRATION (G/DL) BY AUTOMATED 33.2 g/dL Normal 32.0-35.0 [facility] Comment on above: Performed By: #### L [id number] ####[facility] ([facility])[address] [place] [address] Hematocrit (Bld) [Volume fraction] 27.4 % Low 39.0-55.0 [facility] Comment on above: Performed By: #### L [id number] ####[facility] ([facility])[address] [place] [address] Hemoglobin (Bld) [Mass/Vol] 9.1 g/dL Low 13.0-17.0 [facility] Comment on above: Performed By: #### L [id number] ####[facility] ([facility])[address] [place] [address] MCH (RBC) [Entitic mass] 30.7 pg Normal 27.0-33.0 [facility] Comment on above: Performed By: #### L [id number] ####[facility] ([facility])[address] [place] [address] MCV (RBC) [Entitic vol] 92.6 fL Normal 82.0-98.0 [facility] Comment on above: Performed By: #### L [id number] ####[facility] [place] [address] PLATELETS (10*3/UL) IN BLOOD AUTOMATED COUNT 276 10*3/uL Normal 150-400 [facility] Comment on above: Performed By: #### L [id number] ####[facility] ([facility])[address] [place] [address] RBC (Bld) [#/Vol] 2.96 10*6/uL Low 4.20-5.70 [facility] Comment on above: Performed By: #### L [id number] ####[facility] ([facility])[address] [place] [address] WBC (Bld) [#/Vol] 6.87 10*3/uL Normal 4.00-10.60 [facility] Comment on above: Performed By: #### L [id number] ####[facility] ([facility])[address] [place] [address] DSon 05-01-2023 DS Normal [facility] MAGNESIUMon 05-01-2023 Magnesium [Mass/Vol] 1.7 mg/dL Low 1.9-2.7 [facility] Comment on above: Performed By: #### L [id number] ####[facility] ([facility])[address] [place] [address] NURSNOTEon 05-01-2023 NURSNOTE Normal [facility] NURSNOTE Normal [facility] PHOSPHORUSon 05-01-2023 Magnesium [Mass/Vol] 3.8 mg/dL Normal 2.5-5.0 [facility] Comment on above: Performed By: #### L [id number] ####[facility] ([facility])[address] [place] [address] POCT GLUCOSE METER UNSOLICIT ED RESULTSon 05-01-2023 Glucose [Mass/Vol] 116 mg/dL High 70-105 [facility] Comment on above: Order Comment: Waive d Testing in the ED is performed under the ED CLIA certificate #[id number]. Result Comment: [email or web address] Performed By: #### L [id number] ####[facility] ([facility])[address] [place] [address] Glucose [Mass/Vol] 115 mg/dL High 70-105 [facility] Comment on above: Order Comment: Waive d Testing in the ED is performed under the ED CLIA certificate #[id number]. Result Comment: [email or web address] Performed By: #### L [id number] ####[facility] (BE[facility]ER)[address] [place] [address] 30on 04-30-2023 30 Normal [facility] 30 Normal [facility] BASIC METABOLIC PANELon 04-17 Anion gap [Moles/Vol] 12 mmol/L Normal 7-20 [facility] Comment on above: Performed By: #### L [id number] ####[facility] ([facility])[address] [place] [address] Calcium [Mass/Vol] 8.3 mg/dL Low 8.6-10.3 [facility] Comment on above: Performed By: #### L [id number] ####[facility] ([facility])[address] [place] [address] Chloride [Moles/Vol] 109 mmol/L High 98-107 [facility] Comment on above: Performed By: #### L [id number] ####[facility] ([facility])[address] [place] [address] CO2 [Moles/Vol] 21 mmol/L Normal 21-31 [facility] Comment on above: Performed By: #### L [id number] ####[facility] ([facility])[address] [place] [address] Creatinine [Mass/Vol] 0.70 mg/dL Normal 0.70-1.30 [facility] Comment on above: Performed By: #### L [id number] ####[facility] ([facility])[address] [place] [address] GLOMERULAR FILTRATION RATE ML/MIN/1.73 SQ M.PREDICTED 99.7 mL/min/1.73m*2 Normal >60.0 [facility] Comment on above: Result Comment: The [facility]???s estimated glomerular filtration rate (eGFR) will no [...] of individuals. Performed By: #### L [id number] ####[facility] ([facility])[address] [place] [address] Glucose [Mass/Vol] 104 mg/dL High 70-100 [facility] Comment on above: Performed By: #### L [id number] ####[facility] ([facility])[address] [place] [address] Potassium [Moles/Vol] 3.7 mmol/L Normal 3.5-5.1 [facility] Comment on above: Performed By: #### L [id number] ####[facility] ([facility])[address] [place] [address] Sodium [Moles/Vol] 138 mmol/L Normal 136-145 [facility] Comment on above: Performed By: #### L [id number] ####[facility] ([facility])[address] [place] [address] Urea nitrogen [Mass/Vol] 15 mg/dL Normal 7-25 [facility] Comment on above: Performed By: #### L [id number] ####[facility] ([facility])[address] [place] [address] UREA NITROGEN/CREATININ E (MASS RATIO) IN SER/PLAS 21.4 Normal [facility] Comment on above: Performed By: #### L [id number] ####[facility] ([facility])[address] [place] [address] CBCon 04-30-2023 Erythrocyte distribution width (RBC) [Ratio] 13.8 % Normal 11.5-15.0 [facility] Comment on above: Performed By: #### L [id number] ####[facility] ([facility])[address] [place] [address] ERYTHROCYTE MEAN CORPUSCULAR HEMOGLOBIN CONCENTRATION (G/DL) BY AUTOMATED 32.6 g/dL Normal 32.0-35.0 [facility] Comment on above: Performed By: #### L [id number] ####[facility] ([facility])[address] [place] [address] Hematocrit (Bld) [Volume fraction] 27.3 % Low 39.0-55.0 [facility] Comment on above: Performed By: #### L [id number] ####[facility] ([facility])[address] [place] [address] Hemoglobin (Bld) [Mass/Vol] 8.9 g/dL Low 13.0-17.0 [facility] Comment on above: Performed By: #### L [id number] ####[facility] ([facility])[address] [place] [address] MCH (RBC) [Entitic mass] 30.4 pg Normal 27.0-33.0 [facility] Comment on above: Performed By: #### L [id number] ####[facility] ([facility])[address] [place] [address] MCV (RBC) [Entitic vol] 93.2 fL Normal 82.0-98.0 [facility] Comment on above: Performed By: #### L [id number] ####[facility] ([facility])[address] [place] [address] PLATELETS (10*3/UL) IN BLOOD AUTOMATED COUNT 219 10*3/uL Normal 150-400 [facility] Comment on above: Performed By: #### L [id number] ####[facility] ([facility])[address] [place] [address] RBC (Bld) [#/Vol] 2.93 10*6/uL Low 4.20-5.70 [facility] Comment on above: Performed By: #### L [id number] ####[facility] ([facility])[address] [place] [address] WBC (Bld) [#/Vol] 6.80 10*3/uL Normal 4.00-10.60 [facility] Comment on above: Performed By: #### L [id number] ####[facility] ([facility])[address] [place] [address] MAGNESIUMon 04-30-2023 Magnesium [Mass/Vol] 1.7 mg/dL Low 1.9-2.7 [facility] Comment on above: Performed By: #### L [id number] ####[facility] ([facility])[address] [place] [address] PHOSPHORUSon 04-30-2023 Magnesium [Mass/Vol] 4.0 mg/dL Normal 2.5-5.0 [facility] Comment on above: Performed By: #### L [id number] ####[facility] ([facility])[place] [address] POCT GLUCOSE METER UNSOLICIT ED RESULTSon 04-30-2023 Glucose [Mass/Vol] 123 mg/dL High 70-105 [facility] Comment on above: Order Comment: Waive d Testing in the ED is performed under the ED CLIA certificate #[id number]. Result Comment: [email or web address] Performed By: #### L [id number] ####[facility] ([facility])[address] [place] [address] Glucose [Mass/Vol] 138 mg/dL High 70-105 [facility] Comment on above: Order Comment: Waive d Testing in the ED is performed under the ED CLIA certificate #[id number]. Result Comment: [email or web address] Performed By: #### L [id number] ####[facility] ([facility])[address] [place] [address] 30on 04-29-2023 30 Normal [facility] 30 Normal [facility] 30 Normal [facility] BASIC METABOLIC PANELon 04-17 Anion gap [Moles/Vol] 11 mmol/L Normal 7-20 [facility] Comment on above: Performed By: #### L [id number] ####[facility] [place] [address] Calcium [Mass/Vol] 8.4 mg/dL Low 8.6-10.3 [facility] Comment on above: Performed By: #### L [id number] ####[facility] ([facility])[address] [place] [address] Chloride [Moles/Vol] 109 mmol/L High 98-107 [facility] Comment on above: Performed By: #### L [id number] ####[facility] ([facility])[address] [place] [address] CO2 [Moles/Vol] 20 mmol/L Low 21-31 [facility] Comment on above: Performed By: #### L [id number] ####[facility] ([facility])[address] [place] [address] Creatinine [Mass/Vol] 0.68 mg/dL Low 0.70-1.30 [facility] Comment on above: Performed By: #### L [id number] ####[facility] ([facility])[address] [place] [address] GLOMERULAR FILTRATION RATE ML/MIN/1.73 SQ M.PREDICTED 100.6 mL/min/1.73m*2 Normal >60.0 [facility] Comment on above: Result Comment: The [facility]???s estimated glomerular filtration rate (eGFR) will no [...] of individuals. Performed By: #### L [id number] ####[facility] ([facility])[address] [place] [address] Glucose [Mass/Vol] 100 mg/dL Normal 70-100 [facility] Comment on above: Performed By: #### L [id number] ####[facility] ([facility])[address] [place] [address] Potassium [Moles/Vol] 3.8 mmol/L Normal 3.5-5.1 [facility] Comment on above: Performed By: #### L [id number] ####[facility] ([facility])[address] [place] [address] Sodium [Moles/Vol] 136 mmol/L Normal 136-145 [facility] Comment on above: Performed By: #### L [id number] ####[facility] ([facility])[address] [place] [address] Urea nitrogen [Mass/Vol] 18 mg/dL Normal 7-25 [facility] Comment on above: Performed By: #### L [id number] ####[facility] ([facility])[address] [place] [address] UREA NITROGEN/CREATININ E (MASS RATIO) IN SER/PLAS 26.5 Normal [facility] Comment on above: Performed By: #### L [id number] ####[facility] ([facility])[address] [place] [address] CBCon 04-29-2023 Erythrocyte distribution width (RBC) [Ratio] 13.6 % Normal 11.5-15.0 [facility] Comment on above: Performed By: #### L [id number] ####[facility] [place] [address] ERYTHROCYTE MEAN CORPUSCULAR HEMOGLOBIN CONCENTRATION (G/DL) BY AUTOMATED 33.7 g/dL Normal 32.0-35.0 [facility] Comment on above: Performed By: #### L [id number] ####[facility] [place] [address] Hematocrit (Bld) [Volume fraction] 27.0 % Low 39.0-55.0 [facility] Comment on above: Performed By: #### L [id number] ####[facility] ([facility])[address] [place] [address] Hemoglobin (Bld) [Mass/Vol] 9.1 g/dL Low 13.0-17.0 [facility] Comment on above: Performed By: #### L [id number] ####[facility] ([facility])[address] [place] [address] MCH (RBC) [Entitic mass] 30.4 pg Normal 27.0-33.0 [facility] Comment on above: Performed By: #### L [id number] ####[facility] ([facility])[address] [place] [address] MCV (RBC) [Entitic vol] 90.3 fL Normal 82.0-98.0 [facility] Comment on above: Performed By: #### L [id number] ####[facility] ([facility])[address] [place] [address] PLATELETS (10*3/UL) IN BLOOD AUTOMATED COUNT 188 10*3/uL Normal 150-400 [facility] Comment on above: Performed By: #### L [id number] ####[facility] ([facility])[address] [place] [address] RBC (Bld) [#/Vol] 2.99 10*6/uL Low 4.20-5.70 [facility] Comment on above: Performed By: #### L [id number] ####[facility] ([facility])[address] [place] [address] WBC (Bld) [#/Vol] 7.24 10*3/uL Normal 4.00-10.60 [facility] Comment on above: Performed By: #### L [id number] ####[facility] ([facility])[address] [place] [address] CONSULTon 04-29-2023 CONSULT Normal [facility] MAGNESIUMon 04-29-2023 Magnesium [Mass/Vol] 1.7 mg/dL Low 1.9-2.7 [facility] Comment on above: Performed By: #### L [id number] ####[facility] ([facility])[address] [place] [address] PHOSPHORUSon 04-29-2023 Magnesium [Mass/Vol] 3.9 mg/dL Normal 2.5-5.0 [facility] Comment on above: Performed By: #### L [id number] ####[facility] ([facility])[address] [place] [address] POCT GLUCOSE METER UNSOLICIT ED RESULTSon 04-29-2023 Glucose [Mass/Vol] 111 mg/dL High 70-105 [facility] Comment on above: Order Comment: Waive d Testing in the ED is performed under the ED CLIA certificate #[id number]. Result Comment: [email or web address] Performed By: #### L [id number] ####[facility] ([facility])[address] [place] [address] Glucose [Mass/Vol] 133 mg/dL High 70-105 [facility] Comment on above: Order Comment: Waive d Testing in the ED is performed under the ED CLIA certificate #[id number]. Result Comment: [email or web address] shea Performed By: #### L [id number] ####[facility] ([facility])[address] [place] [address] Glucose [Mass/Vol] 128 mg/dL High 70-105 [facility] Comment on above: Order Comment: Waive d Testing in the ED is performed under the ED CLIA certificate #[id number]. Result Comment: [email or web address] shea Performed By: #### L [id number] ####[facility] ([facility])[address] [place] [address] 30on 04-28-2023 30 Normal [facility] BASIC METABOLIC PANELon 04-17 Anion gap [Moles/Vol] 10 mmol/L Normal 7-20 [facility] Comment on above: Performed By: #### L [id number] ####[facility] ([facility])[address] [place] [address] Calcium [Mass/Vol] 8.1 mg/dL Low 8.6-10.3 [facility] Comment on above: Performed By: #### L [id number] ####[facility] ([facility])[address] [place] [address] Chloride [Moles/Vol] 109 mmol/L High 98-107 [facility] Comment on above: Performed By: #### L [id number] ####[facility] ([facility])[address] [place] [address] CO2 [Moles/Vol] 22 mmol/L Normal 21-31 [facility] Comment on above: Performed By: #### L [id number] ####[facility] ([facility])[address] [place] [address] Creatinine [Mass/Vol] 0.62 mg/dL Low 0.70-1.30 [facility] Comment on above: Performed By: #### L [id number] ####[facility] ([facility])[address] [place] [address] GLOMERULAR FILTRATION RATE ML/MIN/1.73 SQ M.PREDICTED 103.5 mL/min/1.73m*2 Normal >60.0 [facility] Comment on above: Result Comment: [facility]???s estimated glomerular filtration rate (eGFR) will no [...] of individuals. Performed By: #### L [id number] ####[facility] [place] [address] Glucose [Mass/Vol] 102 mg/dL High 70-100 [facility] Comment on above: Performed By: #### L [id number] ####[facility] [place] [address] Potassium [Moles/Vol] 3.4 mmol/L Low 3.5-5.1 [facility] Comment on above: Performed By: #### L [id number] ####[facility] [place] [address] Sodium [Moles/Vol] 138 mmol/L Normal 136-145 [facility] Comment on above: Performed By: #### L [id number] ####[facility] [place] [address] Urea nitrogen [Mass/Vol] 22 mg/dL Normal 7-25 [facility] Comment on above: Performed By: #### L [id number] ####[facility] ([facility])[address] [place] [address] UREA NITROGEN/CREATININ E (MASS RATIO) IN SER/PLAS 35.5 Normal [facility] Comment on above: Performed By: #### L [id number] ####[facility] ([facility])[address] [place] [address] CBC WITH AUTO DIFFERENTIALon 04-28-2023 Basophils (Bld) [#/Vol] 0.02 10*3/uL Normal 0.00-0.20 [facility] Comment on above: Performed By: #### L [id number] ####[facility] [place] [address] Basophils/100 WBC (Bld) 0.2 % Normal 0.0-1.0 [facility] Comment on above: Performed By: #### L [id number] ####[facility] [place] [address] Eosinophils (Bld) [#/Vol] 0.09 10*3/uL Normal 0.00-0.50 [facility] Comment on above: Performed By: #### L [id number] ####[facility] ([facility])[address] [place] [address] Eosinophils/100 WBC (Bld) 1.1 % Normal 0.0-6.0 [facility] Comment on above: Performed By: #### L [id number] ####[facility] [place] [address] Erythrocyte distribution width (RBC) [Ratio] 13.6 % Normal 11.5-15.0 [facility] Comment on above: Performed By: #### L [id number] ####[facility] ([facility])[address] [place] [address] ERYTHROCYTE MEAN CORPUSCULAR HEMOGLOBIN CONCENTRATION (G/DL) BY AUTOMATED 33.1 g/dL Normal 32.0-35.0 [facility] Comment on above: Performed By: #### L [id number] ####[facility] [place] [address] Hematocrit (Bld) [Volume fraction] 32.3 % Low 39.0-55.0 [facility] Comment on above: Performed By: #### L [id number] ####[facility] [place] [address] Hemoglobin (Bld) [Mass/Vol] 10.7 g/dL Low 13.0-17.0 [facility] Comment on above: Performed By: #### L [id number] ####[facility] ([facility])[address] [place] [address] Immature granulocytes (Bld) [#/Vol] 0.06 10*3/uL Normal 0.00-0.20 [facility] Comment on above: Performed By: #### L [id number] ####[facility] ([facility])[address] [place] [address] Immature granulocytes/100 WBC (Bld) 0.7 % Normal 0.0-1.0 [facility] Comment on above: Performed By: #### L [id number] ####[facility] ([facility])[address] [place] [address] Lymphocytes (Bld) [#/Vol] 1.82 10*3/uL Normal 1.20-4.00 [facility] Comment on above: Performed By: #### L [id number] ####[facility] ([facility] [place] [address] Lymphocytes/100 WBC (Bld) 22.2 % Normal 20.0-45.0 [facility] Comment on above: Performed By: #### L [id number] ####[facility] ([facility])[address] [place] [address] MCH (RBC) [Entitic mass] 30.3 pg Normal 27.0-33.0 [facility] Comment on above: Performed By: #### L [id number] ####[facility] ([facility])[address] [place] [address] MCV (RBC) [Entitic vol] 91.5 fL Normal 82.0-98.0 [facility] Comment on above: Performed By: #### L [id number] ####[facility] ([facility] [place] [address] Monocytes (Bld) [#/Vol] 0.67 10*3/uL Normal 0.10-1.00 [facility] Comment on above: Performed By: #### L [id number] ####[facility] ([facility])[address] [place] [address] Monocytes/100 WBC (Bld) 8.2 % Normal 5.0-12.0 [facility] Comment on above: Performed By: #### L [id number] ####[facility] ([facility])[address] [place] [address] Neutrophils (Bld) [#/Vol] 5.55 10*3/uL Normal 1.60-7.60 [facility] Comment on above: Performed By: #### L [id number] ####[facility] ([facility])[address] [place] [address] Neutrophils/100 WBC (Bld) 67.6 % Normal 40.0-72.0 [facility] Comment on above: Performed By: #### L [id number] ####[facility] ([facility])[address] [place] [address] NRBC (PER 100 WBCS) BY AUTOMATED COUNT 0.0 % Normal 0 [facility] Comment on above: Performed By: #### L [id number] ####[facility] ([facility])[address] [place] [address] PLATELETS (10*3/UL) IN BLOOD AUTOMATED COUNT 160 10*3/uL Normal 150-400 [facility] Comment on above: Performed By: #### L [id number] ####[facility] ([facility])[address] [place] [address] RBC (Bld) [#/Vol] 3.53 10*6/uL Low 4.20-5.70 [facility] Comment on above: Performed By: #### L [id number] ####[facility] ([facility])[address] [place] [address] WBC (Bld) [#/Vol] 8.21 10*3/uL Normal 4.00-10.60 [facility] Comment on above: Performed By: #### L [id number] ####[facility] ([facility])[address] [place] [address] MAGNESIUMon 04-28-2023 Magnesium [Mass/Vol] 1.7 mg/dL Low 1.9-2.7 [facility] Comment on above: Performed By: #### L [id number] ####[facility] ([facility])[address] [place] [address] PHOSPHORUSon 04-28-2023 Magnesium [Mass/Vol] 3.9 mg/dL Normal 2.5-5.0 [facility] Comment on above: Performed By: #### L [id number] ####[facility] ([facility])[address] [place] [address] POCT GLUCOSE METER UNSOLICIT ED RESULTSon 04-28-2023 Glucose [Mass/Vol] 111 mg/dL High 70-105 [facility] Comment on above: Order Comment: Waive d Testing in the ED is performed under the ED CLIA certificate #[id number]. Result Comment: afin [email or web address] Performed By: #### L [id number] ####[facility] ([facility] [place] [address] Glucose [Mass/Vol] 86 mg/dL Normal 70-105 [facility] Comment on above: Order Comment: Waive d Testing in the ED is performed under the ED CLIA certificate #[id number]. Result Comment: [email or web address] [email or web address] Performed By: #### L [id number] ####[facility] ([facility] [place] [address] Glucose [Mass/Vol] 159 mg/dL High 70-105 [facility] Comment on above: Order Comment: Waive d Testing in the ED is performed under the ED CLIA certificate #[id number]. Result Comment: [email or web address] [email or web address] Performed By: #### L [id number] ####[facility] ([facility])[address] [place] [address] Glucose [Mass/Vol] 109 mg/dL High 70-105 [facility] Comment on above: Order Comment: Waive d Testing in the ED is performed under the ED CLIA certificate #[id number]. Result Comment: afin [email or web address] Performed By: #### L [id number] ####[facility] ([facility])[address] [place] [address] 30on 04-27-2023 30 Normal [facility] BASIC METABOLIC PANELon 04-17 Anion gap [Moles/Vol] 11 mmol/L Normal 7-20 [facility] Comment on above: Performed By: #### L [id number] ####[facility] ([facility] [place] [address] Calcium [Mass/Vol] 8.2 mg/dL Low 8.6-10.3 [facility] Comment on above: Performed By: #### L [id number] ####[facility] ([facility])[address] [place] [address] Chloride [Moles/Vol] 112 mmol/L High 98-107 [facility] Comment on above: Performed By: #### L [id number] ####[facility] ([facility])[address] [place] [address] CO2 [Moles/Vol] 23 mmol/L Normal 21-31 [facility] Comment on above: Performed By: #### L [id number] ####[facility] ([facility])[address] [place] [address] Creatinine [Mass/Vol] 0.64 mg/dL Low 0.70-1.30 [facility] Comment on above: Performed By: #### L [id number] ####[facility] ([facility])[address] [place] [address] GLOMERULAR FILTRATION RATE ML/MIN/1.73 SQ M.PREDICTED 102.5 mL/min/1.73m*2 Normal >60.0 [facility] Comment on above: Result Comment: The [facility]???s estimated glomerular filtration rate (eGFR) will no [...] of individuals. Performed By: #### L [id number] ####[facility] ([facility] [place] [address] Glucose [Mass/Vol] 116 mg/dL High 70-100 [facility] Comment on above: Performed By: #### L [id number] ####[facility] ([facility] [place] [address] Potassium [Moles/Vol] 3.9 mmol/L Normal 3.5-5.1 [facility] Comment on above: Performed By: #### L [id number] ####[facility] ([facility] [place] [address] Sodium [Moles/Vol] 142 mmol/L Normal 136-145 [facility] Comment on above: Performed By: #### L [id number] ####[facility] ([facility] [place] [address] Urea nitrogen [Mass/Vol] 22 mg/dL Normal 7-25 [facility] Comment on above: Performed By: #### L [id number] ####[facility] ([facility])[address] [place] [address] UREA NITROGEN/CREATININ E (MASS RATIO) IN SER/PLAS 34.4 Normal [facility] Comment on above: Performed By: #### L [id number] ####[facility] ([facility])[address] [place] [address] CBC WITH AUTO DIFFERENTIALon 04-27-2023 Basophils (Bld) [#/Vol] 0.02 10*3/uL Normal 0.00-0.20 [facility] Comment on above: Performed By: #### L [id number] ####[facility] ([facility])[address] [place] [address] Basophils/100 WBC (Bld) 0.2 % Normal 0.0-1.0 [facility] Comment on above: Performed By: #### L [id number] ####[facility] ([facility])[address] [place] [address] Eosinophils (Bld) [#/Vol] 0.05 10*3/uL Normal 0.00-0.50 [facility] Comment on above: Performed By: #### L [id number] ####[facility] ([facility] [place] [address] Eosinophils/100 WBC (Bld) 0.5 % Normal 0.0-6.0 [facility] Comment on above: Performed By: #### L [id number] ####[facility] ([facility] [place] [address] Erythrocyte distribution width (RBC) [Ratio] 13.6 % Normal 11.5-15.0 [facility] Comment on above: Performed By: #### L [id number] ####[facility] ([facility])[address] [place] [address] ERYTHROCYTE MEAN CORPUSCULAR HEMOGLOBIN CONCENTRATION (G/DL) BY AUTOMATED 33.7 g/dL Normal 32.0-35.0 [facility] Comment on above: Performed By: #### L [id number] ####[facility] ([facility])[address] [place] [address] Hematocrit (Bld) [Volume fraction] 26.4 % Low 39.0-55.0 [facility] Comment on above: Performed By: #### L [id number] ####[facility] ([facility])[address] [place] [address] Hemoglobin (Bld) [Mass/Vol] 8.9 g/dL Low 13.0-17.0 [facility] Comment on above: Performed By: #### L [id number] ####[facility] ([facility])[address] [place] [address] Immature granulocytes (Bld) [#/Vol] 0.07 10*3/uL Normal 0.00-0.20 [facility] Comment on above: Performed By: #### L [id number] ####[facility] ([facility])[address] [place] [address] Immature granulocytes/100 WBC (Bld) 0.8 % Normal 0.0-1.0 [facility] Comment on above: Performed By: #### L [id number] ####[facility] ([facility])[address] [place] [address] Lymphocytes (Bld) [#/Vol] 1.24 10*3/uL Normal 1.20-4.00 [facility] Comment on above: Performed By: #### L [id number] ####[facility] ([facility])[address] [place] [address] Lymphocytes/100 WBC (Bld) 13.3 % Low 20.0-45.0 [facility] Comment on above: Performed By: #### L [id number] ####[facility] ([facility])[address] [place] [address] MCH (RBC) [Entitic mass] 30.5 pg Normal 27.0-33.0 [facility] Comment on above: Performed By: #### L [id number] ####[facility] ([facility])[address] [place] [address] MCV (RBC) [Entitic vol] 90.4 fL Normal 82.0-98.0 [facility] Comment on above: Performed By: #### L [id number] ####[facility] ([facility])[address] [place] [address] Monocytes (Bld) [#/Vol] 0.72 10*3/uL Normal 0.10-1.00 [facility] Comment on above: Performed By: #### L [id number] ####[facility] ([facility])[address] [place] [address] Monocytes/100 WBC (Bld) 7.7 % Normal 5.0-12.0 [facility] Comment on above: Performed By: #### L [id number] ####[facility] ([facility])[address] [place] [address] Neutrophils (Bld) [#/Vol] 7.22 10*3/uL Normal 1.60-7.60 [facility] Comment on above: Performed By: #### L [id number] ####[facility] ([facility])[address] [place] [address] Neutrophils/100 WBC (Bld) 77.5 % High 40.0-72.0 [facility] Comment on above: Performed By: #### L [id number] ####[facility] ([facility] [place] [address] NRBC (PER 100 WBCS) BY AUTOMATED COUNT 0.0 % Normal 0 [facility] Comment on above: Performed By: #### L [id number] ####[facility] ([facility])[address] [place] [address] PLATELETS (10*3/UL) IN BLOOD AUTOMATED COUNT 100 10*3/uL Low 150-400 [facility] Comment on above: Performed By: #### L [id number] ####[facility] ([facility])[address] [place] [address] RBC (Bld) [#/Vol] 2.92 10*6/uL Low 4.20-5.70 [facility] Comment on above: Performed By: #### L [id number] ####[facility] ([facility])[address] [place] [address] WBC (Bld) [#/Vol] 9.32 10*3/uL Normal 4.00-10.60 [facility] Comment on above: Performed By: #### L [id number] ####[facility] ([facility])[address] [place] [address] MAGNESIUMon 04-27-2023 Magnesium [Mass/Vol] 1.9 mg/dL Normal 1.9-2.7 [facility] Comment on above: Performed By: #### L [id number] ####[facility] ([facility])[address] [place] [address] PHOSPHORUSon 04-27-2023 Magnesium [Mass/Vol] 3.5 mg/dL Normal 2.5-5.0 [facility] Comment on above: Performed By: #### L [id number] ####[facility] ([facility])[address] [place] [address] POCT GLUCOSE METER UNSOLICIT ED RESULTSon 04-27-2023 Glucose [Mass/Vol] 100 mg/dL Normal 70-105 [facility] Comment on above: Order Comment: Waive d Testing in the ED is performed under the ED CLIA certificate #[id number]. Result Comment: afin ch3 Performed By: #### L [id number] ####[facility] ([facility])[address] [place] [address] Glucose [Mass/Vol] 165 mg/dL High 70-105 [facility] Comment on above: Order Comment: Waive d Testing in the ED is performed under the ED CLIA certificate #[id number]. Result Comment: mitra shea Performed By: #### L [id number] ####[facility] ([employer])[address] [place] [address] Glucose [Mass/Vol] 157 mg/dL High 70-105 [facility] Comment on above: Order Comment: Waive d Testing in the ED is performed under the ED CLIA certificate #[id number]. Result Comment: mitra shea Performed By: #### L [id number] ####[facility] ([employer])[address] [facility] [address] Glucose [Mass/Vol] 112 mg/dL High 70-105 [facility] Comment on above: Order Comment: Waive d Testing in the ED is performed under the ED CLIA certificate #[id number]. Result Comment: afin [email or web address] Performed By: #### L [id number] ####[facility] ([employer])[address] [facility] [address] PROTIME-INRon 04-27-2023 INR IN PPP BY COAGULATION ASSAY 1.21 High 0.90-1.10 [facility] Comment on above: Result Comment: ACCC P [...] CHEST 1995;[id number]. Performed By: #### L [id number] ####[facility] ([facility] [place] [address] PROTHROMBIN TIME (PT) IN PPP BY COAGULATION ASSAY 15.3 Seconds High 12.3-14.8 [facility] Comment on above: Performed By: #### L [id number] ####[facility] ([facility] [place] [address] 30on 04-26-2023 30 Normal [facility] 30 Normal [facility] 30 Normal [facility] 30 Normal [facility] BASIC METABOLIC PANELon 11- Anion gap [Moles/Vol] 10 mmol/L Normal 7-20 [facility] Comment on above: Performed By: #### L [id number] ####[facility] ([facility])[address] [place] [address] Calcium [Mass/Vol] 8.5 mg/dL Low 8.6-10.3 [facility] Comment on above: Performed By: #### L [id number] ####[facility] ([facility] [place] [address] Chloride [Moles/Vol] 109 mmol/L High 98-107 [facility] Comment on above: Performed By: #### L [id number] ####[facility] ([facility])[address] [place] [address] CO2 [Moles/Vol] 25 mmol/L Normal 21-31 [facility] Comment on above: Performed By: #### L [id number] ####[facility] ([facility])[address] [place] [address] Creatinine [Mass/Vol] 0.62 mg/dL Low 0.70-1.30 [facility] Comment on above: Performed By: #### L [id number] ####[facility] ([facility])[address] [place] [address] GLOMERULAR FILTRATION RATE ML/MIN/1.73 SQ M.PREDICTED 103.5 mL/min/1.73m*2 Normal >60.0 [facility] Comment on above: Result Comment: The [facility]???s estimated glomerular filtration rate (eGFR) will no [...] of individuals. Performed By: #### L [id number] ####[facility] ([facility])[address] [place] [address] Glucose [Mass/Vol] 136 mg/dL High 70-100 [facility] Comment on above: Performed By: #### L [id number] ####[facility] ([facility])[address] [place] [address] Potassium [Moles/Vol] 3.6 mmol/L Normal 3.5-5.1 [facility] Comment on above: Performed By: #### L [id number] ####[facility] ([facility])[address] [place] [address] Sodium [Moles/Vol] 140 mmol/L Normal 136-145 [facility] Comment on above: Performed By: #### L [id number] ####[facility] ([facility])[address] [place] [address] Urea nitrogen [Mass/Vol] 18 mg/dL Normal 7-25 [facility] Comment on above: Performed By: #### L [id number] ####[facility] ([facility])[address] [place] [address] UREA NITROGEN/CREATININ E (MASS RATIO) IN SER/PLAS 29.0 Normal [facility] Comment on above: Performed By: #### L [id number] ####[facility] ([facility])[address] [place] [address] Anion gap [Moles/Vol] 9 mmol/L Normal 7-20 [facility] Comment on above: Performed By: #### L [id number] ####[facility] ([facility])[address] [place] [address] Calcium [Mass/Vol] 7.8 mg/dL Low 8.6-10.3 [facility] Comment on above: Performed By: #### L [id number] ####[facility] ([facility])[address] [place] [address] Chloride [Moles/Vol] 112 mmol/L High 98-107 [facility] Comment on above: Performed By: #### L [id number] ####[facility] ([facility])[address] [place] [address] CO2 [Moles/Vol] 23 mmol/L Normal 21-31 [facility] Comment on above: Performed By: #### L [id number] ####[facility] ([facility])[address] [place] [address] Creatinine [Mass/Vol] 0.61 mg/dL Low 0.70-1.30 [facility] Comment on above: Performed By: #### L [id number] ####[facility] ([facility])[address] [place] [address] GLOMERULAR FILTRATION RATE ML/MIN/1.73 SQ M.PREDICTED 104.0 mL/min/1.73m*2 Normal >60.0 [facility] Comment on above: Result Comment: [facility]???s estimated glomerular filtration rate (eGFR) will no [...] of individuals. Performed By: #### L [id number] ####[facility] ([facility])[address] [place] [address] Glucose [Mass/Vol] 112 mg/dL High 70-100 [facility] Comment on above: Performed By: #### L [id number] ####[facility] ([facility])[address] [place] [address] Potassium [Moles/Vol] 3.4 mmol/L Low 3.5-5.1 [facility] Comment on above: Performed By: #### L [id number] ####[facility] ([facility])[address] [place] [address] Sodium [Moles/Vol] 141 mmol/L Normal 136-145 [facility] Comment on above: Performed By: #### L [id number] ####[facility] ([facility])[address] [place] [address] Urea nitrogen [Mass/Vol] 14 mg/dL Normal 7-25 [facility] Comment on above: Performed By: #### L [id number] ####[facility] ([facility])[address] [place] [address] UREA NITROGEN/CREATININ E (MASS RATIO) IN SER/PLAS 23.0 Normal [facility] Comment on above: Performed By: #### L [id number] ####[facility] ([facility])[address] [place] [address] CBCon 04-26-2023 Erythrocyte distribution width (RBC) [Ratio] 13.9 % Normal 11.5-15.0 [facility] Comment on above: Performed By: #### L [id number] ####[facility] ([facility])[address] [place] [address] ERYTHROCYTE MEAN CORPUSCULAR HEMOGLOBIN CONCENTRATION (G/DL) BY AUTOMATED 33.7 g/dL Normal 32.0-35.0 [facility] Comment on above: Performed By: #### L [id number] ####[facility] ([facility])[address] [place] [address] Hematocrit (Bld) [Volume fraction] 24.3 % Low 39.0-55.0 [facility] Comment on above: Performed By: #### L [id number] ####[facility] ([facility])[address] [place] [address] Hemoglobin (Bld) [Mass/Vol] 8.2 g/dL Low 13.0-17.0 [facility] Comment on above: Performed By: #### L [id number] ####[facility] ([facility])[address] [place] [address] IMMATURE PLATELET FRACTION % 4.3 % Normal 0.8-6.3 [facility] Comment on above: Performed By: #### L [id number] ####[facility] ([facility])[address] [place] [address] MCH (RBC) [Entitic mass] 30.4 pg Normal 27.0-33.0 [facility] Comment on above: Performed By: #### L [id number] ####[facility] ([facility])[address] [place] [address] MCV (RBC) [Entitic vol] 90.0 fL Normal 82.0-98.0 [facility] Comment on above: Performed By: #### L [id number] ####[facility] ([facility])[address] [place] [address] PLATELETS (10*3/UL) IN BLOOD AUTOMATED COUNT 71 10*3/uL Low 150-400 [facility] Comment on above: Performed By: #### L [id number] ####[facility] ([facility])[address] [place] [address] RBC (Bld) [#/Vol] 2.70 10*6/uL Low 4.20-5.70 [facility] Comment on above: Performed By: #### L [id number] ####[facility] ([facility])[address] [place] [address] WBC (Bld) [#/Vol] 7.74 10*3/uL Normal 4.00-10.60 [facility] Comment on above: Performed By: #### L [id number] ####[facility] ([facility])[address] [place] [address] CO-OXIMETRYon 04-26-2023 CARBOXYHEMOGLOBIN/ HEMOGLOBIN TOTAL % IN BLOOD 1.4 % Normal [facility] Comment on above: Performed By: #### L [id number] ####[facility] [id number] [place] [address] [place] Hemoglobin (Bld) [Mass/Vol] 8.5 g/dL Normal [facility] Comment on above: Performed By: #### L [id number] ####[facility] [id number] [place] [address] [place] METHEMOGLOBIN/100 IN BLOOD 0.3 % Normal 0.0-1.5 [facility] Comment on above: Performed By: #### L [id number] ####[facility] [id number] [address] [place] [address] [place] Oxygen saturation in Blood 57.1 % Normal [facility] Comment on above: Performed By: #### L [id number] ####[facility] RESPIRATORY [id number] [address] [place] OXYGENATED HEMOGLOBIN IN BLOOD 56.1 % Normal [facility] Comment on above: Performed By: #### L [id number] ####[facility] RESPIR[facility]ORY [id number] [place] [address] [place] IRON AND TIBCon 04-26-2023 IRON (UG/DL) IN SER/PLAS 16 ug/dL Low 50-212 [facility] Comment on above: Performed By: #### L [id number] ####[facility] ([facility])[address] [place] [address] IRON BINDING CAPACITY (UG/DL) IN SER/PLAS 143 ug/dL Low 250-450 [facility] Comment on above: Performed By: #### L [id number] ####[facility] ([facility])[address] [place] [address] IRON BINDING CAPACITY.UNSATURAT ED (UG/DL) IN SER/PLAS 127.0 ug/dL Low 155.0-355.0 [facility] Comment on above: Performed By: #### L [id number] ####[facility] ([facility])[address] [place] [address] IRON SATURATION (%) IN SER/PLAS 11 % Low 20-50 [facility] Comment on above: Performed By: #### L [id number] ####[facility] ([facility])[address] [place] [address] LACTIC ACID, PLASMAon 2022 LACTATE (MMOL/L) IN SER/PLAS 0.6 mmol/L Normal 0.5-2.2 [facility] Comment on above: Performed By: #### L [id number] ####[facility] ([facility])[address] [place] [address] MAGNESIUMon 04-26-2023 Magnesium [Mass/Vol] 1.6 mg/dL Low 1.9-2.7 [facility] Comment on above: Performed By: #### L [id number] ####[facility] ([facility])[address] [place] [address] Magnesium [Mass/Vol] 1.7 mg/dL Low 1.9-2.7 [facility] Comment on above: Performed By: #### L [id number] ####[facility] [place] [address] PHOSPHORUSon 04-26-2023 Magnesium [Mass/Vol] 3.4 mg/dL Normal 2.5-5.0 [facility] Comment on above: Performed By: #### L [id number] ####[facility] ([facility])[address] [place] [address] Magnesium [Mass/Vol] 3.7 mg/dL Normal 2.5-5.0 [facility] Comment on above: Performed By: #### L [id number] ####[facility] [place] [address] POCT GLUCOSE METER UNSOLICIT ED RESULTSon 04-26-2023 Glucose [Mass/Vol] 134 mg/dL High 70-105 [facility] Comment on above: Order Comment: Waive d Testing in the ED is performed under the ED CLIA certificate #[id number]. Result Comment: cfit [email or web address] Performed By: #### L [id number] ####[facility] ([facility])[address] [place] [address] Glucose [Mass/Vol] 129 mg/dL High 70-105 [facility] Comment on above: Order Comment: Waive d Testing in the ED is performed under the ED CLIA certificate #[id number]. Result Comment: cfit ch4 Performed By: #### L [id number] ####[facility] ([facility])[address] [place] [address] Glucose [Mass/Vol] 121 mg/dL High 70-105 [facility] Comment on above: Order Comment: Waive d Testing in the ED is performed under the ED CLIA certificate #[id number]. Result Comment: than sen2 Performed By: #### L [id number] ####[facility] ([facility])[address] [place] [address] Glucose [Mass/Vol] 113 mg/dL High 70-105 [facility] Comment on above: Order Comment: Waive d Testing in the ED is performed under the ED CLIA certificate #[id number]. Result Comment: than sen2 Performed By: #### L [id number] ####[facility] ([facility])[address] [place] [address] PREALBUMINon 04-26-2023 Prealbumin [Mass/Vol] 6.4 mg/dL Normal [facility] Comment on above: Performed By: #### L [id number] ####[facility] ([facility])[address] [place] [address] TRANSFERRINon 04-26-2023 Magnesium [Mass/Vol] 82 mg/dL Low 168-348 [facility] Comment on above: Performed By: #### L [id number] ####[facility] ([facility])[address] [place] [address] 30on 04-25-2023 30 Normal [facility] AMMONIAon 04-25-2023 AMMONIA (UMOL/L) IN PLASMA 39 umol/L Normal 18-72 [facility] Comment on above: Performed By: #### L [id number] ####[facility] [place] [address] APTTon 04-25-2023 ACTIVATED PARTIAL THROMBOPLASTIN TIME IN PPP BY COAGULATION ASSAY 37.2 Seconds High 25.0-35.0 [facility] Comment on above: Result Comment: Clin ical significance of the APTT is questionable in the presence of heparin. Performed By: #### L [id number] ####[facility] [place] [address] BASIC METABOLIC PANELon Anion gap [Moles/Vol] 9 mmol/L Normal 7-20 [facility] Comment on above: Performed By: #### L [id number] ####[facility] ([facility])[address] [place] [address] Calcium [Mass/Vol] 8.2 mg/dL Low 8.6-10.3 [facility] Comment on above: Performed By: #### L [id number] ####[facility] ([facility])[address] [place] [address] Chloride [Moles/Vol] 111 mmol/L High 98-107 [facility] Comment on above: Performed By: #### L [id number] ####[facility] ([facility])[address] [place] [address] CO2 [Moles/Vol] 24 mmol/L Normal 21-31 [facility] [facility] Comment on above: Performed By: #### L [id number] ####[facility] (BEAKER)[address] [place] [address] Creatinine [Mass/Vol] 0.71 mg/dL Normal 0.70-1.30 [facility] Comment on above: Performed By: #### L [id number] ####[facility] ([facility])[address] [place] [address] GLOMERULAR FILTRATION RATE ML/MIN/1.73 SQ M.PREDICTED 99.3 mL/min/1.73m*2 Normal >60.0 [facility] Comment on above: Result Comment: [facility]???s estimated glomerular filtration rate (eGFR) will no [...] of individuals. Performed By: #### L [id number] ####[facility] ([facility])[address] [place] [address] Glucose [Mass/Vol] 124 mg/dL High 70-100 [facility] Comment on above: Performed By: #### L [id number] ####[facility] ([facility])[address] [place] [address] Potassium [Moles/Vol] 3.9 mmol/L Normal 3.5-5.1 [facility] Comment on above: Performed By: #### L [id number] ####[facility] ([facility])[address] [place] [address] Sodium [Moles/Vol] 140 mmol/L Normal 136-145 [facility] Comment on above: Performed By: #### L [id number] ####[facility] ([facility])[address] [place] [address] Urea nitrogen [Mass/Vol] 17 mg/dL Normal 7-25 [facility] Comment on above: Performed By: #### L [id number] ####[facility] ([facility])[address] [place] [address] UREA NITROGEN/CREATININ E (MASS RATIO) IN SER/PLAS 23.9 Normal [facility] Comment on above: Performed By: #### L [id number] ####[facility] [place] [address] CBCon 04-25-2023 Erythrocyte distribution width (RBC) [Ratio] 14.0 % Normal 11.5-15.0 [facility] Comment on above: Performed By: #### L [id number] ####[facility] ([facility])[address] [place] [address] ERYTHROCYTE MEAN CORPUSCULAR HEMOGLOBIN CONCENTRATION (G/DL) BY AUTOMATED 34.1 g/dL Normal 32.0-35.0 [facility] Comment on above: Performed By: #### L [id number] ####[facility] ([facility] [place] [address] Hematocrit (Bld) [Volume fraction] 24.9 % Low 39.0-55.0 [facility] Comment on above: Performed By: #### L [id number] ####[facility] ([facility] [place] [address] Hemoglobin (Bld) [Mass/Vol] 8.5 g/dL Low 13.0-17.0 [facility] Comment on above: Performed By: #### L [id number] ####[facility] (BEAKER)[address] [place] [address] IMMATURE PLATELET FRACTION % 5.1 % Normal 0.8-6.3 [facility] Comment on above: Performed By: #### L [id number] ####[facility] (BEAKER)[address] [place] [address] MCH (RBC) [Entitic mass] 30.7 pg Normal 27.0-33.0 [facility] Comment on above: Performed By: #### L [id number] ####[facility] (BEAKER)[address] [place] [address] MCV (RBC) [Entitic vol] 89.9 fL Normal 82.0-98.0 [facility] Comment on above: Performed By: #### L [id number] ####[facility] (BEAKER)[address] [place] [address] PLATELETS (10*3/UL) IN BLOOD AUTOMATED COUNT 55 10*3/uL Low 150-400 [facility] Comment on above: Performed By: #### L [id number] ####[facility] (BEAKER)[address] [place] [address] RBC (Bld) [#/Vol] 2.77 10*6/uL Low 4.20-5.70 [facility] Comment on above: Performed By: #### L [id number] ####[facility] (BEAKER)[address] [place] [address] WBC (Bld) [#/Vol] 9.29 10*3/uL Normal 4.00-10.60 [facility] Comment on above: Performed By: #### L [id number] ####[facility] (BEAKER)[address] [place] [address] Erythrocyte distribution width (RBC) [Ratio] 14.6 % Normal 11.5-15.0 [facility] Comment on above: Performed By: #### L [id number] ####[facility] (BEAKER)[address] [place] [address] ERYTHROCYTE MEAN CORPUSCULAR HEMOGLOBIN CONCENTRATION (G/DL) BY AUTOMATED 34.1 g/dL Normal 32.0-35.0 [facility] Comment on above: Performed By: #### L [id number] ####[facility] (BEAKER)[address] [place] [address] Hematocrit (Bld) [Volume fraction] 25.5 % Low 39.0-55.0 [facility] Comment on above: Performed By: #### L [id number] ####[facility] (BEAKER)[address] [place] [address] Hemoglobin (Bld) [Mass/Vol] 8.7 g/dL Low 13.0-17.0 [facility] Comment on above: Performed By: #### L [id number] ####[facility] ([facility] [place] [address] IMMATURE PLATELET FRACTION % 5.5 % Normal 0.8-6.3 [facility] Comment on above: Performed By: #### L [id number] ####[facility] ([facility])[address] [place] [address] MCH (RBC) [Entitic mass] 31.0 pg Normal 27.0-33.0 [facility] Comment on above: Performed By: #### L [id number] ####[facility] ([facility])[address] [place] [address] MCV (RBC) [Entitic vol] 90.7 fL Normal 82.0-98.0 [facility] Comment on above: Performed By: #### L [id number] ####[facility] ([facility])[address] [place] [address] PLATELETS (10*3/UL) IN BLOOD AUTOMATED COUNT 56 10*3/uL Low 150-400 [facility] Comment on above: Result Comment: P=69 , 1D Performed By: #### L [id number] ####[facility] ([facility])[address] [place] [address] RBC (Bld) [#/Vol] 2.81 10*6/uL Low 4.20-5.70 [facility] Comment on above: Performed By: #### L [id number] ####[facility] ([facility])[address] [place] [address] WBC (Bld) [#/Vol] 10.33 10*3/uL Normal 4.00-10.60 [facility] Comment on above: Performed By: #### L [id number] ####[facility] ([facility] [place] [address] CO-OXIMETRYon 04-25-2023 CARBOXYHEMOGLOBIN/ HEMOGLOBIN TOTAL % IN BLOOD 0.8 % Normal [facility] Comment on above: Performed By: #### L [id number] ####[facility] RESPIRATORY [id number] [place] [address] [place] Hemoglobin (Bld) [Mass/Vol] 7.8 g/dL Normal [facility] Comment on above: Performed By: #### L [id number] ####[facility] RESPIRATORY [id number] [place] [address] [place] METHEMOGLOBIN/100 IN BLOOD 1.1 % Normal 0.0-1.5 [facility] Comment on above: Performed By: #### L [id number] ####[facility] RESPIRATORY [id number] [place] [address] [place] Oxygen saturation in Blood 70.2 % Normal [facility] Comment on above: Performed By: #### L [id number] ####[facility] RESPIRATORY [id number] [place] [address] [place] OXYGENATED HEMOGLOBIN IN BLOOD 68.8 % Normal [facility] Comment on above: Performed By: #### L [id number] ####[facility] RESPIRATORY [id number] [place] [address] [place] HEPATIC FUNCTION PANELon Albumin [Mass/Vol] 3.3 g/dL Low 3.5-5.7 [facility] Comment on above: Performed By: #### L [id number] ####[facility] (BEAKER)[address] [place] [address] ALP [Catalytic activity/Vol] 49 U/L Normal 34-104 [facility] Comment on above: Performed By: #### L [id number] ####[facility] (BEAKER)[address] [place] [address] ALT [Catalytic activity/Vol] 60 U/L High 7-52 [facility] Comment on above: Performed By: #### L [id number] ####[facility] (BEAKER)[address] [place] [address] AST [Catalytic activity/Vol] 127 U/L High 13-39 [facility] Comment on above: Performed By: #### L [id number] ####[facility] (BEAKER)[address] [place] [address] Bilirubin [Mass/Vol] 0.5 mg/dL Normal 0.3-1.0 [facility] Comment on above: Performed By: #### L [id number] ####[facility] ([facility])[address] [place] [address] Magnesium [Mass/Vol] 0.2 mg/dL Normal 0-0.2 [facility] Comment on above: Performed By: #### L [id number] ####[facility] ([facility])[address] [place] [address] Protein [Mass/Vol] 4.8 g/dL Low 6.0-8.3 [facility] Comment on above: Performed By: #### L [id number] ####[facility] ([facility])[address], [place] [address] LACTIC ACID WITH 4 HOUR REFL EXon 04-25-2023 LACTATE (MMOL/L) IN SER/PLAS 1.4 mmol/L Normal 0.5-2.2 [facility] Comment on above: Performed By: #### L [id number] ####[facility] ([facility])[address] [place] [address] MAGNESIUMon 04-25-2023 Magnesium [Mass/Vol] 1.7 mg/dL Low 1.9-2.7 [facility] Comment on above: Performed By: #### L [id number] ####[facility] ([facility])[address] [place] [address] NURSNOTEon 04-25-2023 NURSNOTE Normal [facility] NURSNOTE Normal [facility] PHOSPHORUSon 04-25-2023 Magnesium [Mass/Vol] 2.3 mg/dL Low 2.5-5.0 [facility] Comment on above: Performed By: #### L [id number] ####[facility] ([facility])[address], [place] [address] POCT GLUCOSE METER UNSOLICIT ED RESULTSon 04-25-2023 Glucose [Mass/Vol] 106 mg/dL High 70-105 [facility] Comment on above: Order Comment: Waive d Testing in the ED is performed under the ED CLIA certificate #[id number]. Result Comment: [email or web address] Performed By: #### L [id number] ####[facility] ([facility])[address] [facility] [address] Glucose [Mass/Vol] 128 mg/dL High 70-105 [facility] Comment on above: Order Comment: Waive d Testing in the ED is performed under the ED CLIA certificate #[id number]. Result Comment: [email or web address] Performed By: #### L [id number] ####[facility] ([employer])[address] [place] [address] PROTIME-INRon 04-25-2023 INR IN PPP BY COAGULATION ASSAY 1.34 High 0.90-1.10 [facility] Comment on above: Result Comment: ACCC P [...] CHEST 1995;108:231S-246S. Performed By: #### L [id number] ####[facility] ([facility])[address] [facility] [address] PROTHROMBIN TIME (PT) IN PPP BY COAGULATION ASSAY 16.6 Seconds High 12.3-14.8 [facility] Comment on above: Performed By: #### L [id number] ####[facility] ([employer])[address] [place] [address] INR IN PPP BY COAGULATION ASSAY 1.39 High 0.90-1.10 [facility] Comment on above: Result Comment: ACCC P [...] CHEST 1995;108:231S-246S. Performed By: #### L [id number] ####[facility] ([facility])[address] [place] [address] PROTHROMBIN TIME (PT) IN PPP BY COAGULATION ASSAY 17.1 Seconds High 12.3-14.8 [facility] Comment on above: Performed By: #### L [id number] ####[facility] ([facility])[address] [place] [address] 30on 04-24-2023 30 Normal [facility] 30 Normal [facility] 30 Normal [facility] ARTERIAL BLOOD GAS WITH IONI ZED CALCIUMon 04-24-2023 Base excess Calc (Bld) [Moles/Vol] -2.0000 mmol/L Normal -2.0-3.0 [facility] Comment on above: Performed By: #### L [id number] ####[facility] RESPIRATORY [id number] [place] [address] [facility] CALCIUM IONIZED (MMOL/L) IN BLOOD 1.06 mmol/L Low 1.15-1.33 [facility] Comment on above: Performed By: #### L [id number] ####[facility] RESPIRATORY [id number] [place] [address] [facility] CO2 (Bld) [Partial pressure] 31 mm[Hg] Low 35-48 [facility] Comment on above: Performed By: #### L [id number] ####[facility] RESPIRATORY [id number] [place] [address] [facility] HCO3 (Bld) [Moles/Vol] 21.5 mmol/L Normal 21.0-28.0 [facility] Comment on above: Performed By: #### L [id number] ####[facility] RESPIRATORY [id number] [place] [address] [facility] Oxygen (Bld) [Partial pressure] 118 mm[Hg] High 83-100 [facility] Comment on above: Performed By: #### L [id number] ####[facility] RESPIRATORY [id number] [place] [address] [facility] OXYGEN SATURATION (%) IN ARTERIAL BLOOD 99.4 % High 94.0-98.0 [facility] Comment on above: Performed By: #### L [id number] ####[facility] RESPIRATORY [id number] [place] [address] [facility] pH (Bld) 7.45 [pH] Normal 7.35-7.45 [facility] Comment on above: Performed By: #### L [id number] ####[facility] RESPIRATORY [id number] [place] [address] [facility] SOURCE OF OXYGEN AC/VC Normal [facility] Comment on above: Performed By: #### L [id number] ####[facility] RESPIRATORY [id number] [place] [address] [facility] TIDAL VOLUME (VT) CC 8 Normal [facility] Comment on above: Performed By: #### L [id number] ####[facility] RESPIRATORY [id number] [place] [address] [place] BASIC METABOLIC PANELon 11-0 Anion gap [Moles/Vol] 10 mmol/L Normal 7-20 [facility] Comment on above: Performed By: #### L [id number] ####[facility] (BEAKER)[address] [place] [address] Calcium [Mass/Vol] 8.5 mg/dL Low 8.6-10.3 [facility] Comment on above: Performed By: #### L [id number] ####[facility] (BEAKER)[address] [place] [address] Chloride [Moles/Vol] 113 mmol/L High 98-107 [facility] Comment on above: Performed By: #### L [id number] ####[facility] (BEAKER)[address] [place] [address] CO2 [Moles/Vol] 24 mmol/L Normal 21-31 [facility] Comment on above: Performed By: #### L [id number] ####[facility] (BEAKER)[address] [place] [address] Creatinine [Mass/Vol] 0.83 mg/dL Normal 0.70-1.30 [facility] Comment on above: Performed By: #### L [id number] ####[facility] (BEAKER)[address] [place] [address] GLOMERULAR FILTRATION RATE ML/MIN/1.73 SQ M.PREDICTED 94.7 mL/min/1.73m*2 Normal >60.0 [facility] Comment on above: Result Comment: [facility]???s estimated glomerular filtration rate (eGFR) will no [...] of individuals. Performed By: #### L [id number] ####[facility] ([facility])[address] [place] [address] Glucose [Mass/Vol] 208 mg/dL High 70-100 [facility] Comment on above: Performed By: #### L [id number] ####[facility] ([facility])[address] [place] [address] Potassium [Moles/Vol] 3.6 mmol/L Normal 3.5-5.1 [facility] Comment on above: Performed By: #### L [id number] ####[facility] ([facility])[address] [place] [address] Sodium [Moles/Vol] 143 mmol/L Normal 136-145 [facility] Comment on above: Performed By: #### L [id number] ####[facility] ([facility])[address] [place] [address] Urea nitrogen [Mass/Vol] 19 mg/dL Normal 7-25 [facility] Comment on above: Performed By: #### L [id number] ####[facility] ([facility])[address] [place] [address] UREA NITROGEN/CREATININ E (MASS RATIO) IN SER/PLAS 22.9 Normal [facility] Comment on above: Performed By: #### L [id number] ####[facility] ([facility])[address] [place] [address] CBCon 04-24-2023 Erythrocyte distribution width (RBC) [Ratio] 13.9 % Normal 11.5-15.0 [facility] Comment on above: Performed By: #### L [id number] ####[facility] ([facility])[address] [place] [address] ERYTHROCYTE MEAN CORPUSCULAR HEMOGLOBIN CONCENTRATION (G/DL) BY AUTOMATED 34.3 g/dL Normal 32.0-35.0 [facility] Comment on above: Performed By: #### L [id number] ####[facility] (BEAKER)[address] [place] [address] Hematocrit (Bld) [Volume fraction] 28.0 % Low 39.0-55.0 [facility] Comment on above: Performed By: #### L [id number] ####[facility] (BEAKER)[address] [place] [address] Hemoglobin (Bld) [Mass/Vol] 9.6 g/dL Low 13.0-17.0 [facility] Comment on above: Performed By: #### L [id number] ####[facility] (BEAKER)[address] [place] [address] IMMATURE PLATELET FRACTION % 5.1 % Normal 0.8-6.3 [facility] Comment on above: Performed By: #### L [id number] ####[facility] (BEAKER)[address] [place] [address] MCH (RBC) [Entitic mass] 30.7 pg Normal 27.0-33.0 [facility] Comment on above: Performed By: #### L [id number] ####[facility] (BEAKER)[address] [place] [address] MCV (RBC) [Entitic vol] 89.5 fL Normal 82.0-98.0 [facility] Comment on above: Performed By: #### L [id number] ####[facility] (BEAKER)[address] [place] [address] PLATELETS (10*3/UL) IN BLOOD AUTOMATED COUNT 69 10*3/uL Low 150-400 [facility] Comment on above: Performed By: #### L [id number] ####[facility] (BEAKER)[address] [place] [address] RBC (Bld) [#/Vol] 3.13 10*6/uL Low 4.20-5.70 [facility] Comment on above: Performed By: #### L [id number] ####[facility] (BEAKER)[address] [place] [address] WBC (Bld) [#/Vol] 16.62 10*3/uL High 4.00-10.60 [facility] Comment on above: Performed By: #### L [id number] ####[facility] (BEAKER)[address] [place] [address] CO-OXIMETRYon 04-24-2023 CARBOXYHEMOGLOBIN/ HEMOGLOBIN TOTAL % IN BLOOD 1.2 % Normal [facility] Comment on above: Performed By: #### L [id number] ####[facility] RESPIRATORY [id number] [place] [address] [facility] Hemoglobin (Bld) [Mass/Vol] 9.6 g/dL Normal [facility] Comment on above: Performed By: #### L [id number] ####[facility] RESPIRATORY [id number] [place] [address] [place] METHEMOGLOBIN/100 IN BLOOD 0.4 % Normal 0.0-1.5 [facility] Comment on above: Performed By: #### L [id number] ####[facility] RESPIRATORY [id number] [place] [address] [place] Oxygen saturation in Blood 67.5 % Normal [facility] Comment on above: Performed By: #### L [id number] ####[facility] RESPIRATORY [id number] [place] [address] [place] OXYGENATED HEMOGLOBIN IN BLOOD 66.4 % Normal [facility] Comment on above: Performed By: #### L [id number] ####[facility] RESPIRATORY [id number] [place] [address] [facility] HEPATIC FUNCTION PANELon Albumin [Mass/Vol] 3.7 g/dL Normal 3.5-5.7 [facility] Comment on above: Performed By: #### L [id number] ####[facility] (BEAKER)[address] [place] [address] ALP [Catalytic activity/Vol] 39 U/L Normal 34-104 [facility] Comment on above: Performed By: #### L [id number] ####[facility] [place] [address] ALT [Catalytic activity/Vol] 82 U/L High 7-52 [facility] Comment on above: Performed By: #### L [id number] ####[facility] ([facility])[address] [place] [address] AST [Catalytic activity/Vol] 229 U/L High 13-39 [facility] Comment on above: Performed By: #### L [id number] ####[facility] ([facility])[address] [place] [address] Bilirubin [Mass/Vol] 0.5 mg/dL Normal 0.3-1.0 [facility] Comment on above: Performed By: #### L [id number] ####[facility] ([facility])[address] [place] [address] Magnesium [Mass/Vol] 0.2 mg/dL Normal 0-0.2 [facility] Comment on above: Performed By: #### L [id number] ####[facility] ([facility])[address] [place] [address] Protein [Mass/Vol] 4.9 g/dL Low 6.0-8.3 [facility] Comment on above: Performed By: #### L [id number] ####[facility] ([facility])[address] [place] [address] LACTIC ACID WITH 4 HOUR REFL EXon 04-24-2023 LACTATE (MMOL/L) IN SER/PLAS 1.3 mmol/L Normal 0.5-2.2 [facility] Comment on above: Performed By: #### L [id number] ####[facility] ([facility])[address] [place] [address] Performed By: #### L [id number] ####[facility] ([facility])[address] [place] [address] LACTATE (MMOL/L) IN SER/PLAS 4.0 mmol/L Critically high 0.5-2.2 [facility] Comment on above: Result Comment: Prev ious result verified on 04/23/2023 2300 on specimen/case [id number] called with component Lactate blood venous for procedure Lactic acid, venous, whole blood with value 9.1 mmol/L. Performed By: #### L [id number] ####[facility] ([facility])[address] [place] [address] MAGNESIUMon 04-24-2023 Magnesium [Mass/Vol] 1.8 mg/dL Low 1.9-2.7 [facility] Comment on above: Performed By: #### L [id number] ####[facility] ([facility])[address] [place] [address] POCT GLUCOSE METER UNSOLICIT ED RESULTSon 04-24-2023 Glucose [Mass/Vol] 129 mg/dL High 70-105 [facility] Comment on above: Order Comment: Waive d Testing in the ED is performed under the ED CLIA certificate #[id number]. Result Comment: [email or web address] Performed By: #### L [id number] ####[facility] ([facility])[address] [place] [address] Glucose [Mass/Vol] 116 mg/dL High 70-105 [facility] Comment on above: Order Comment: Waive d Testing in the ED is performed under the ED CLIA certificate #[id number]. Result Comment: [email or web address] Performed By: #### L [id number] ####[facility] ([facility])[address] [place] [address] Glucose [Mass/Vol] 106 mg/dL High 70-105 [facility] Comment on above: Order Comment: Waive d Testing in the ED is performed under the ED CLIA certificate #[id number]. Result Comment: nhay man Performed By: #### L [id number] ####[facility] ([facility])[address] [place] [address] Glucose [Mass/Vol] 113 mg/dL High 70-105 [facility] Comment on above: Order Comment: Waive d Testing in the ED is performed under the ED CLIA certificate #[id number]. Result Comment: nhay man Performed By: #### L [id number] ####[facility] (BEAKER)[address] [place] [address] Glucose [Mass/Vol] 118 mg/dL High 70-105 [facility] Comment on above: Order Comment: Waive d Testing in the ED is performed under the ED CLIA certificate #[id number]. Result Comment: nhay man Performed By: #### L [id number] ####[facility] ([facility])[address] [place] [address] Glucose [Mass/Vol] 75 mg/dL Normal 70-105 [facility] Comment on above: Order Comment: Waive d Testing in the ED is performed under the ED CLIA certificate #[id number]. Result Comment: nhay man Performed By: #### L [id number] ####[facility] ([facility])[address] [place] [address] Glucose [Mass/Vol] 163 mg/dL High 70-105 [facility] Comment on above: Order Comment: Waive d Testing in the ED is performed under the ED CLIA certificate #[id number]. Result Comment: than sen2 Performed By: #### L [id number] ####[facility] ([facility])[address] [place] [address] Glucose [Mass/Vol] 176 mg/dL High 70-105 [facility] Comment on above: Order Comment: Waive d Testing in the ED is performed under the ED CLIA certificate #[id number]. Result Comment: than sen2 Performed By: #### L [id number] ####[facility] ([facility])[address] [place] [address] Glucose [Mass/Vol] 147 mg/dL High 70-105 [facility] Comment on above: Order Comment: Waive d Testing in the ED is performed under the ED CLIA certificate #[id number]. Result Comment: [email or web address] Performed By: #### L [id number] ####[facility] ([facility])[address] [place] [address] Glucose [Mass/Vol] 199 mg/dL High 70-105 [facility] Comment on above: Order Comment: Waive d Testing in the ED is performed under the ED CLIA certificate #[id number]. Result Comment: [email or web address] Performed By: #### L [id number] ####[facility] ([facility])[address] [place] [address] Glucose [Mass/Vol] 202 mg/dL High 70-105 [facility] Comment on above: Order Comment: Waive d Testing in the ED is performed under the ED CLIA certificate #[id number]. Result Comment: than sen2 Performed By: #### L [id number] ####[facility] ([facility])[address] [place] [address] Glucose [Mass/Vol] 233 mg/dL High 70-105 [facility] Comment on above: Order Comment: Waive d Testing in the ED is performed under the ED CLIA certificate #[id number]. Result Comment: than sen2 Performed By: #### L [id number] ####[facility] ([facility])[address] [place] [address] Glucose [Mass/Vol] 253 mg/dL High 70-105 [facility] Comment on above: Order Comment: Waive d Testing in the ED is performed under the ED CLIA certificate #[id number]. Result Comment: [email or web address] Performed By: #### L [id number] ####[facility] ([facility])[address] [place] [address] Glucose [Mass/Vol] 279 mg/dL High 70-105 [facility] Comment on above: Order Comment: Waive d Testing in the ED is performed under the ED CLIA certificate #[id number]. Result Comment: than [email or web address] Performed By: #### L [id number] ####[facility] (BEAKER)[address] [place] [address] TROPONIN Ion 04-24-2023 Troponin I.cardiac [Mass/Vol] 34.92 ng/mL Critically high 0.00-0.04 [facility] Comment on above: Result Comment: Prev ious result verified on 04/23/2023 2259 on specimen/case [id number] called with component Troponin I for procedure Troponin I with value 22.65 ng/mL. Performed By: #### L [id number] ####[facility] ([facility])[address] [place] [address] 30on 04-23-2023 30 Normal [facility] 30 Normal [facility] AMYLASEon 04-23-2023 Amylase [Catalytic activity/Vol] 86 U/L Normal 29-103 [facility] Comment on above: Performed By: #### L [id number] ####[facility] ([facility])[address] [place] [address] APTTon 04-23-2023 ACTIVATED PARTIAL THROMBOPLASTIN TIME IN PPP BY COAGULATION ASSAY 45.1 Seconds High 25.0-35.0 [facility] Comment on above: Result Comment: Clin ical significance of the APTT is questionable in the presence of heparin. Performed By: #### L [id number] ####[facility] ([facility])[address] [place] [address] ACTIVATED PARTIAL THROMBOPLASTIN TIME IN PPP BY COAGULATION ASSAY 49.0 Seconds High 25.0-35.0 [facility] Comment on above: Result Comment: Clin ical significance of the APTT is questionable in the presence of heparin. Performed By: #### L [id number] ####[facility] ([facility])[address] [place] [address] ARTERIAL BLOOD GAS WITH IONI ZED CALCIUMon 04-23-2023 Base excess Calc (Bld) [Moles/Vol] -16.95483 mmol/L Low -2.0-3.0 [facility] Comment on above: Performed By: #### L [id number] ####[facility] [id number] [place] [address] [place] CALCIUM IONIZED (MMOL/L) IN BLOOD 1.15 mmol/L Normal 1.15-1.33 [facility] Comment on above: Performed By: #### L [id number] ####[facility] [id number] [place] [address] [facility] CO2 (Bld) [Partial pressure] 20 mm[Hg] Invalid Interpretation Code 35-48 [facility] Comment on above: Performed By: #### L [id number] ####[facility] [id number] [place] [address] [facility] HCO3 (Bld) [Moles/Vol] 8.8 mmol/L Low 21.0-28.0 [facility] Comment on above: Performed By: #### L [id number] ####[facility] [id number] [place] [address] [facility] LPM 2 Normal [facility] Comment on above: Performed By: #### L [id number] ####[facility] [id number] [place] [address] [facility] Oxygen (Bld) [Partial pressure] 67 mm[Hg] Low 83-100 [facility] Comment on above: Performed By: #### L [id number] ####[facility] [id number] [place] [address] [facility] OXYGEN SATURATION (%) IN ARTERIAL BLOOD 93.6 % Low 94.0-98.0 [facility] Comment on above: Performed By: #### L [id number] ####[facility] [id number] [place] [address] [facility] pH (Bld) 7.25 [pH] Low 7.35-7.45 [facility] Comment on above: Performed By: #### L [id number] ####[facility] [id number] [place] [address] [facility] SOURCE OF OXYGEN Nasal cannula Normal Unive [facility] Comment on above: Performed By: #### L [id number] ####[facility] RES[facility] [id number] [place] [address] [facility] Base excess Calc (Bld) [Moles/Vol] -15.68050 mmol/L Low -2.0-3.0 [facility] Comment on above: Order Comment: On ar rival to CVU Performed By: #### L [id number] ####[facility] [id number] [place] [address] [place] CALCIUM IONIZED (MMOL/L) IN BLOOD 1.16 mmol/L Normal 1.15-1.33 [facility] Comment on above: Order Comment: On ar rival to CVU Performed By: #### L [id number] ####[facility] RES[facility] [id number] [place] [address] [place] CO2 (Bld) [Partial pressure] 21 mm[Hg] Invalid Interpretation Code 35-48 [facility] Comment on above: Order Comment: On ar rival to CVU Performed By: #### L [id number] ####[facility] RES[facility] [id number] [place] [address] [facility] HCO3 (Bld) [Moles/Vol] 9.6 mmol/L Low 21.0-28.0 [facility] Comment on above: Order Comment: On ar rival to CVU Performed By: #### L [id number] ####[facility] RESP[facility] [id number] [place] [address] [place] Oxygen (Bld) [Partial pressure] 63 mm[Hg] Low 83-100 [facility] Comment on above: Order Comment: On ar rival to CVU Performed By: #### L [id number] ####[facility] RESPIR[facility] [id number] [place] [address] [place] OXYGEN SATURATION (%) IN ARTERIAL BLOOD 92.2 % Low 94.0-98.0 [facility] Comment on above: Order Comment: On ar rival to CVU Performed By: #### L [id number] ####[facility] RESPIRATORY [id number] [place] [address] [place] pH (Bld) 7.27 [pH] Low 7.35-7.45 [facility] Comment on above: Order Comment: On ar rival to CVU Performed By: #### L [id number] ####[facility] RESP[facility] [id number] [place] [address] [facility] SOURCE OF OXYGEN Nasal cannula Normal [facility] Comment on above: Order Comment: On ar rival to CVU Performed By: #### L [id number] ####[facility] RESPIRATORY [id number] [place] [address] [place] Anesthesiaon 04-23-2023 Anesthesia [id number] Gui Ortiz 1955 M Date Provider Department Center 04/23/2023 KAUSHAL FINLEY [facility] SICU None Family History Family history unknown: Yes Normal [facility] BASIC METABOLIC PANELon 11- Anion gap [Moles/Vol] 10 mmol/L Normal 7-20 [facility] Comment on above: Performed By: #### L [id number] ####[facility] [place] [address] Calcium [Mass/Vol] 8.4 mg/dL Low 8.6-10.3 [facility] Comment on above: Performed By: #### L [id number] ####[facility] (BEAKER)[address] [place] [address] Chloride [Moles/Vol] 114 mmol/L High 98-107 [facility] Comment on above: Performed By: #### L [id number] ####[facility] (BEAKER)[address] [place] [address] CO2 [Moles/Vol] 25 mmol/L Normal 21-31 [facility] Comment on above: Performed By: #### L [id number] ####[facility] (BEAKER)[address] [place] [address] Creatinine [Mass/Vol] 0.86 mg/dL Normal 0.70-1.30 [facility] Comment on above: Performed By: #### L [id number] ####[facility] (BEAKER)[address] [place] [address] GLOMERULAR FILTRATION RATE ML/MIN/1.73 SQ M.PREDICTED 93.7 mL/min/1.73m*2 Normal >60.0 [facility] Comment on above: Result Comment: The [facility]???s estimated glomerular filtration rate (eGFR) will no [...] of individuals. Performed By: #### L [id number] ####[facility] ([facility])[address] [place] [address] Glucose [Mass/Vol] 86 mg/dL Normal 70-100 [facility] Comment on above: Performed By: #### L [id number] ####[facility] ([facility])[address] [place] [address] Potassium [Moles/Vol] 3.9 mmol/L Normal 3.5-5.1 [facility] Comment on above: Performed By: #### L [id number] ####[facility] ([facility])[address] [place] [address] Sodium [Moles/Vol] 145 mmol/L Normal 136-145 [facility] Comment on above: Performed By: #### L [id number] ####[facility] ([facility])[address] [place] [address] Urea nitrogen [Mass/Vol] 19 mg/dL Normal 7-25 [facility] Comment on above: Performed By: #### L [id number] ####[facility] ([facility])[address] [place] [address] UREA NITROGEN/CREATININ E (MASS RATIO) IN SER/PLAS 22.1 Normal [facility] Comment on above: Performed By: #### L [id number] ####[facility] ([facility])[address] [place] [address] CALCIUM, IONIZEDon 3 CALCIUM IONIZED (MMOL/L) IN BLOOD 1.20 mmol/L Normal 1.15-1.33 [facility] Comment on above: Performed By: #### C ALCIUM, IONIZED ####[facility] RESPIR[facility] [id number] [place] [address] [facility] CALCIUM IONIZED (MMOL/L) IN BLOOD 1.21 mmol/L Normal 1.15-1.33 [facility] Comment on above: Performed By: #### C ALCIUM, IONIZED ####[facility] RESPIR[facility] [id number] [place] [address] [facility] CALCIUM IONIZED (MMOL/L) IN BLOOD 1.19 mmol/L Normal 1.15-1.33 [facility] Comment on above: Performed By: #### C ALCIUM, IONIZED ####[facility] RESPIR[facility] [id number] [place] [address] [facility] CALCIUM IONIZED (MMOL/L) IN BLOOD 1.07 mmol/L Low 1.15-1.33 [facility] Comment on above: Performed By: #### C ALCIUM, IONIZED ####[facility] RESPIR[facility] [id number] [place] [address] [facility] CBCon 04-23-2023 Erythrocyte distribution width (RBC) [Ratio] 13.3 % Normal 11.5-15.0 [facility] Comment on above: Performed By: #### L [id number] ####[facility] (BEAKER)[address] [place] [address] ERYTHROCYTE MEAN CORPUSCULAR HEMOGLOBIN CONCENTRATION (G/DL) BY AUTOMATED 34.2 g/dL Normal 32.0-35.0 [facility] Comment on above: Performed By: #### L [id number] ####[facility] (BEAKER)[address] [place] [address] Hematocrit (Bld) [Volume fraction] 22.5 % Low 39.0-55.0 [facility] Comment on above: Performed By: #### L [id number] ####[facility] ([facility] [place] [address] Hemoglobin (Bld) [Mass/Vol] 7.7 g/dL Low 13.0-17.0 [facility] Comment on above: Result Comment: Resu lts checked Performed By: #### L [id number] ####[facility] ([facility])[address] [place] [address] IMMATURE PLATELET FRACTION % 2.5 % Normal 0.8-6.3 [facility] Comment on above: Performed By: #### L [id number] ####[facility] ([facility])[address] [place] [address] MCH (RBC) [Entitic mass] 31.3 pg Normal 27.0-33.0 [facility] Comment on above: Performed By: #### L [id number] ####[facility] ([facility])[address] [place] [address] MCV (RBC) [Entitic vol] 91.5 fL Normal 82.0-98.0 [facility] Comment on above: Performed By: #### L [id number] ####[facility] ([facility])[address] [place] [address] PLATELETS (10*3/UL) IN BLOOD AUTOMATED COUNT 80 10*3/uL Low 150-400 [facility] Comment on above: Result Comment: Plt est 74 ok Performed By: #### L [id number] ####[facility] ([facility])[address] [place] [address] RBC (Bld) [#/Vol] 2.46 10*6/uL Low 4.20-5.70 [facility] Comment on above: Performed By: #### L [id number] ####[facility] ([facility])[address] [place] [address] WBC (Bld) [#/Vol] 7.84 10*3/uL Normal 4.00-10.60 [facility] Comment on above: Performed By: #### L [id number] ####[facility] ([facility])[address] [place] [address] CBC WITH AUTO DIFFERENTIALon 04-23-2023 Erythrocyte distribution width (RBC) [Ratio] 14.0 % Normal 11.5-15.0 [facility] Comment on above: Performed By: #### L [id number] ####[facility] (BEAKER)[address] [place] [address] ERYTHROCYTE MEAN CORPUSCULAR HEMOGLOBIN CONCENTRATION (G/DL) BY AUTOMATED 33.9 g/dL Normal 32.0-35.0 [facility] Comment on above: Performed By: #### L [id number] ####[facility] (BEAKER)[address] [place] [address] Hematocrit (Bld) [Volume fraction] 18.0 % Low 39.0-55.0 [facility] Comment on above: Performed By: #### L [id number] ####[facility] ([facility] [place] [address] Hemoglobin (Bld) [Mass/Vol] 6.1 g/dL Low 13.0-17.0 [facility] Comment on above: Performed By: #### L [id number] ####[facility] ([facility])[address] [place] [address] IMMATURE PLATELET FRACTION % 3.6 % Normal 0.8-6.3 [facility] Comment on above: Performed By: #### L [id number] ####[facility] ([facility])[address] [place] [address] MCH (RBC) [Entitic mass] 31.4 pg Normal 27.0-33.0 [facility] Comment on above: Performed By: #### L [id number] ####[facility] (BEAKER)[address] [place] [address] MCV (RBC) [Entitic vol] 92.8 fL Normal 82.0-98.0 [facility] Comment on above: Performed By: #### L [id number] ####[facility] (BEAKER)[address] [place] [address] NRBC (PER 100 WBCS) BY AUTOMATED COUNT 0.0 % Normal 0 [facility] Comment on above: Performed By: #### L [id number] ####[facility] (BEAKER)[address] [place] [address] PLATELETS (10*3/UL) IN BLOOD AUTOMATED COUNT 68 10*3/uL Low 150-400 [facility] Comment on above: Performed By: #### L [id number] ####[facility] ([facility])[address] [place] [address] RBC (Bld) [#/Vol] 1.94 10*6/uL Low 4.20-5.70 [facility] Comment on above: Performed By: #### L [id number] ####[facility] ([facility])[address] [place] [address] WBC (Bld) [#/Vol] 12.79 10*3/uL High 4.00-10.60 [facility] Comment on above: Performed By: #### L [id number] ####[facility] ([facility])[address] [place] [address] CK TOTAL AND CKMBon 04-23-20 CREATINE KINASE (U/L) IN SER/PLAS 4110.0 U/L High 30.0-223.0 [facility] Comment on above: Performed By: #### L [id number] ####[facility] ([facility])[address] [place] [address] CREATINE KINASE MB/CREATINE KINASE TOTAL BY CALCULATION 2.9 High <=1.9 [facility] Comment on above: Performed By: #### L [id number] ####[facility] ([facility])[address] [place] [address] CREATINE KINASE-MB (NG/ML) IN SER/PLAS 122.5 ng/mL High 0.0-5.0 [facility] Comment on above: Performed By: #### L [id number] ####[facility] ([facility] [place] [address] CO-OXIMETRYon 04-23-2023 CARBOXYHEMOGLOBIN/ HEMOGLOBIN TOTAL % IN BLOOD 1.3 % Normal [facility] Comment on above: Performed By: #### L [id number] ####[facility] RESPIRATORY [id number] [place] [address] [place] Hemoglobin (Bld) [Mass/Vol] 7.8 g/dL Normal [facility] Comment on above: Performed By: #### L [id number] ####[facility] RESPIRATORY [id number] [place] [address] [place] METHEMOGLOBIN/100 IN BLOOD 1.0 % Normal 0.0-1.5 [facility] Comment on above: Performed By: #### L [id number] ####[facility] RESPIRATORY [id number] [place] [address] [place] Oxygen saturation in Blood 65.8 % Normal [facility] Comment on above: Performed By: #### L [id number] ####[facility] RESPIRATORY [id number] [place] [address] [place] OXYGENATED HEMOGLOBIN IN BLOOD 64.2 % Normal [facility] Comment on above: Performed By: #### L [id number] ####[facility] RESPIRATORY [id number] [place] [address] [facility] COMPREHENSIVE METABOLIC PANE Roddy 04-23-2023 Albumin [Mass/Vol] 3.6 g/dL Normal 3.5-5.7 [facility] Comment on above: Performed By: #### L [id number] ####[facility] (BEAKER)[address] [place] [address] ALP [Catalytic activity/Vol] 34 U/L Normal 34-104 [facility] Comment on above: Performed By: #### L [id number] ####[facility] (BEAKER)[address] [place] [address] ALT [Catalytic activity/Vol] 22 U/L Normal 7-52 [facility] Comment on above: Performed By: #### L [id number] ####[facility] (BEAKER)[address] [place] [address] Anion gap [Moles/Vol] 21 mmol/L High 7-20 [facility] Comment on above: Performed By: #### L [id number] ####[facility] (BEAKER)[address] [place] [address] AST [Catalytic activity/Vol] 132 U/L High 13-39 [facility] Comment on above: Performed By: #### L [id number] ####[facility] [place] [address] Bilirubin [Mass/Vol] 0.5 mg/dL Normal 0.3-1.0 [facility] Comment on above: Performed By: #### L [id number] ####[facility] ([facility] [place] [address] Calcium [Mass/Vol] 8.1 mg/dL Low 8.6-10.3 [facility] Comment on above: Performed By: #### L [id number] ####[facility] ([facility] [place] [address] Chloride [Moles/Vol] 109 mmol/L High 98-107 [facility] Comment on above: Performed By: #### L [id number] ####[facility] ([facility] [place] [address] CO2 [Moles/Vol] 20 mmol/L Low 21-31 [facility] Comment on above: Performed By: #### L [id number] ####[facility] ([facility] [place] [address] Creatinine [Mass/Vol] 1.16 mg/dL Normal 0.70-1.30 [facility] Comment on above: Performed By: #### L [id number] ####[facility] ([facility] [place] [address] GLOMERULAR FILTRATION RATE ML/MIN/1.73 SQ M.PREDICTED 68.2 mL/min/1.73m*2 Normal >60.0 [facility] Comment on above: Result Comment: [facility]???s estimated glomerular filtration rate (eGFR) will no [...] of individuals. Performed By: #### L [id number] ####[facility] ([facility])[address] [facility] [place] [address] Glucose [Mass/Vol] 255 mg/dL High 70-100 [facility] Comment on above: Performed By: #### L [id number] ####[facility] ([facility])[address] [address] Potassium [Moles/Vol] 4.4 mmol/L Normal 3.5-5.1 [facility] Comment on above: Performed By: #### L [id number] ####[facility] ([facility])[address] [facility] [place] [address] Protein [Mass/Vol] 4.7 g/dL Low 6.0-8.3 [facility] Comment on above: Performed By: #### L [id number] ####[facility] ([facility])[address] [place] [address] Sodium [Moles/Vol] 146 mmol/L High 136-145 [facility] Comment on above: Performed By: #### L [id number] ####[facility] ([facility])[address] [facility] [place] [address] Urea nitrogen [Mass/Vol] 21 mg/dL Normal 7-25 [facility] Comment on above: Performed By: #### L [id number] ####[facility] ([facility])[address] [place] [address] UREA NITROGEN/CREATININ E (MASS RATIO) IN SER/PLAS 18.1 Normal [facility] Comment on above: Performed By: #### L [id number] ####[facility] ([facility])[address] [facility] [place] [address] CONSULTon 04-23-2023 CONSULT Normal [facility] CONSULT Normal [facility] FIBRINOGENon 04-23-2023 Magnesium [Mass/Vol] 258 mg/dL Normal 150-425 [facility] Comment on above: Performed By: #### L [id number] ####[facility] ([facility])[address] [place] [address] HEMOGLOBIN AND HEMATOCRIT, B LOODon 04-23-2023 Hematocrit (Bld) [Volume fraction] 28.1 % Low 39.0-55.0 [facility] Comment on above: Performed By: #### L [id number] ####[facility] ([facility])[address] [place] [address] Hemoglobin (Bld) [Mass/Vol] 9.5 g/dL Low 13.0-17.0 [facility] Comment on above: Performed By: #### L [id number] ####[facility] ([facility])[address] [place] [address] LACTIC ACID WITH 4 HOUR REFL EXon 04-23-2023 LACTATE (MMOL/L) IN SER/PLAS 9.1 mmol/L Critically high 0.5-2.2 [facility] Comment on above: Result Comment: Prev ious result verified on 04/23/2023 2137 on specimen/case [id number] called with component Lactate blood venous for procedure Lactic acid, venous, whole blood with value 12.1 mmol/L. Performed By: #### L [id number] ####[facility] ([facility])[address] [place] [address] LACTATE (MMOL/L) IN SER/PLAS 12.1 mmol/L Critically high 0.5-2.2 [facility] Comment on above: Result Comment: Prev ious result verified on 04/22/20236 on specimen/case [id number] called with component Lactate for procedure Lactic acid, plasma with value 2.6 mmol/L. Performed By: #### L [id number] ####[facility] ([facility])[address] [place] [address] LACTIC ACID, PLASMAon 2022 LACTATE (MMOL/L) IN SER/PLAS 2.2 mmol/L Normal 0.5-2.2 [facility] Comment on above: Performed By: #### L [id number] ####[facility] ([facility])[address] [place] [address] LIPASEon 04-23-2023 LIPASE (U/L) IN SER/PLAS 12 U/L Normal [facility] Comment on above: Performed By: #### L [id number] ####[facility] ([facility])[address] [place] [address] MAGNESIUMon 04-23-2023 Magnesium [Mass/Vol] 1.8 mg/dL Low 1.9-2.7 [facility] Comment on above: Performed By: #### L [id number] ####[facility] ([facility])[address] [place] [address] MANUAL DIFFERENTIALon 2022 BASOPHILS (10*3/UL) IN BLOOD BY CALCULATION 0.01 10*3/uL Normal 0.00-0.20 [facility] Comment on above: Performed By: #### L [id number] ####[facility] ([facility])[address] [place] [address] BASOPHILS/100 LEUKOCYTES IN BLOOD BY AUTOMATED COUNT 0.1 % Normal 0.0-1.0 [facility] Comment on above: Performed By: #### L [id number] ####[facility] ([facility])[address] [place] [address] EOSINOPHILS (10*3/UL) IN BLOOD BY CALCULATION 0.00 10*3/uL Normal 0.00-0.50 [facility] Comment on above: Performed By: #### L [id number] ####[facility] ([facility])[address] [place] [address] EOSINOPHILS/100 LEUKOCYTES IN BLOOD BY AUTOMATED COUNT 0.0 % Normal 0.0-6.0 [facility] Comment on above: Performed By: #### L [id number] ####[facility] ([facility])[address] [place] [address] IMMATURE GRANULOCYTES (10*3/UL) IN BLOOD BY CALCULATION 0.09 10*3/uL Normal 0.00-0.20 [facility] Comment on above: Performed By: #### L [id number] ####[facility] ([facility])[address] [place] [address] IMMATURE GRANULOCYTES/100 LEUKOCYTES IN BLOOD BY AUTOMATED COUNT 0.7 % Normal 0.0-1.0 [facility] Comment on above: Performed By: #### L [id number] ####[facility] ([facility])[address] [place] [address] LYMPHOCYTES (10*3/UL) IN BLOOD BY CALCULATION 0.72 10*3/uL Low 1.20-4.00 [facility] Comment on above: Performed By: #### L [id number] ####[facility] ([facility])[address] [place] [address] LYMPHOCYTES/100 LEUKOCYTES IN BLOOD BY AUTOMATED COUNT 5.6 % Low 20.0-45.0 [facility] Comment on above: Performed By: #### L [id number] ####[facility] ([facility])[address] [place] [address] MONOCYTES (10*3/UL) IN BLOOD BY CALCUATION 0.70 10*3/uL Normal 0.10-1.00 [facility] Comment on above: Performed By: #### L [id number] ####[facility] ([facility])[address] [place] [address] MONOCYTES/100 LEUKOCYTES IN BLOOD BY AUTOMATED COUNT 5.5 % Normal 5.0-12.0 [facility] Comment on above: Performed By: #### L [id number] ####[facility] ([facility])[address] [place] [address] NEUTROPHILS (10*3/UL) IN BLOOD BY CALCULATION 11.3 10*3/uL High 1.6-7.6 [facility] Comment on above: Performed By: #### L [id number] ####[facility] ([facility])[address] [place] [address] NEUTROPHILS/100 LEUKOCYTES IN BLOOD BY AUTOMATED COUNT 88.1 % High 40.0-72.0 [facility] Comment on above: Performed By: #### L [id number] ####[facility] (BEAKER)[address] [place] [address] MYOGLOBIN, SERUMon 3 MYOGLOBIN (NG/ML) IN SER/PLAS 1832 ng/mL High 0-90 [facility] Comment on above: Result Comment: A DO UBLING OF VALUES FROM SERIAL BLOOD COLLECTIONS (1 - 2 HOURS APART) IS MORE INDICATIVE OF A M.I. THAN THE ABSOLUTE VALUE. Performed By: #### L [id number] ####[facility] (BEAKER)[address] [place] [address] MYOGLOBIN, URINEon 3 MYOGLOBIN URINE 2 mg/L High 0-1 [facility] Comment on above: Result Comment: The [...] was developed and its performance characteristicsdetermined by [facility]. It has not been cleared orapproved by the [place] Food and Drug Administration. This test wasperformed in a CLIA certified laboratory and is intended forclinical purposes.Performed By: [facility] [place], [place] [id number] Director: Wenceslao Healy MD, PhDCLIA Number: [id number] Performed By: #### L [id number] ####[facility] ([facility])[address] [place] [address] PHOSPHORUSon 04-23-2023 Magnesium [Mass/Vol] 3.1 mg/dL Normal 2.5-5.0 [facility] Comment on above: Performed By: #### L [id number] ####[facility] ([facility])[address] [place] [address] POCT GLUCOSE METER UNSOLICIT ED RESULTSon 04-23-2023 Glucose [Mass/Vol] 270 mg/dL High 70-105 [facility] Comment on above: Order Comment: Waive d Testing in the ED is performed under the ED CLIA certificate #[id number]. Result Comment: than sen2 Performed By: #### L [id number] ####[facility] ([facility])[address] [place] [address] Glucose [Mass/Vol] 267 mg/dL High 70-105 [facility] Comment on above: Order Comment: Waive d Testing in the ED is performed under the ED CLIA certificate #[id number]. Result Comment: ileana [email or web address] Performed By: #### L [id number] ####[facility] ([facility])[address] [place] [address] Glucose [Mass/Vol] 267 mg/dL High 70-105 [facility] Comment on above: Order Comment: Waive d Testing in the ED is performed under the ED CLIA certificate #[id number]. Result Comment: than sen2 Performed By: #### L [id number] ####[facility] ([facility])[address] [place] [address] Glucose [Mass/Vol] 138 mg/dL High 70-105 [facility] Comment on above: Order Comment: Waive d Testing in the ED is performed under the ED CLIA certificate #[id number]. Result Comment: nhay man Performed By: #### L [id number] ####[facility] ([facility])[address] [place] [address] Glucose [Mass/Vol] 92 mg/dL Normal 70-105 [facility] Comment on above: Order Comment: Waive d Testing in the ED is performed under the ED CLIA certificate #[id number]. Result Comment: nhay man Performed By: #### L [id number] ####[facility] ([facility])[address] [place] [address] Glucose [Mass/Vol] 101 mg/dL Normal 70-105 [facility] Comment on above: Order Comment: Waive d Testing in the ED is performed under the ED CLIA certificate #[id number]. Result Comment: [email or web address] Performed By: #### L [id number] ####[facility] (BEAKER)[address] [place] [address] Glucose [Mass/Vol] 91 mg/dL Normal 70-105 [facility] Comment on above: Order Comment: Waive d Testing in the ED is performed under the ED CLIA certificate #[id number]. Result Comment: [email or web address] Performed By: #### L [id number] ####[facility] ([facility])[address] [place] [address] Glucose [Mass/Vol] 114 mg/dL High 70-105 [facility] Comment on above: Order Comment: Waive d Testing in the ED is performed under the ED CLIA certificate #[id number]. Result Comment: [email or web address] Performed By: #### L [id number] ####[facility] (BEAKER)[address] [place] [address] Glucose [Mass/Vol] 123 mg/dL High 70-105 [facility] Comment on above: Order Comment: Waive d Testing in the ED is performed under the ED CLIA certificate #[id number]. Result Comment: vsan [email or web address] Performed By: #### L [id number] ####[facility] (BEAKER)[address] [place] [address] Glucose [Mass/Vol] 142 mg/dL High 70-105 [facility] Comment on above: Order Comment: Waive d Testing in the ED is performed under the ED CLIA certificate #[id number]. Result Comment: vsan [email or web address] Performed By: #### L [id number] ####[facility] (BEAKER)[address] [place] [address] POTASSIUM, WHOLE BLOODon Potassium [Moles/Vol] 4.4 mmol/L Normal 3.5-5.1 [facility] Comment on above: Performed By: #### P OTASSIUM, WHOLE BLOOD ####[facility] [id number] [place] [address] [facility] Potassium [Moles/Vol] 4.3 mmol/L Normal 3.5-5.1 [facility] Comment on above: Performed By: #### P OTASSIUM, WHOLE BLOOD ####[facility] [id number] [place] [address] [facility] Potassium [Moles/Vol] 4.1 mmol/L Normal 3.5-5.1 [facility] Comment on above: Performed By: #### P OTASSIUM, WHOLE BLOOD ####[facility] [id number] [place] [address] [facility] Potassium [Moles/Vol] 4.3 mmol/L Normal 3.5-5.1 [facility] Comment on above: Performed By: #### P OTASSIUM, WHOLE BLOOD ####[facility] [id number] [place] [address] [facility] PROTIME-INRon 04-23-2023 INR IN PPP BY COAGULATION ASSAY 1.98 High 0.90-1.10 [facility] Comment on above: Result Comment: ACCC P [...] CHEST 1995;108:231S-246S. Performed By: #### L [id number] ####[facility] ([employer])[address] [place] [address] PROTHROMBIN TIME (PT) IN PPP BY COAGULATION ASSAY 22.6 Seconds High 12.3-14.8 [facility] Comment on above: Performed By: #### L [id number] ####[facility] ([employer])[address] [place] [address] INR IN PPP BY COAGULATION ASSAY 1.47 High 0.90-1.10 [facility] Comment on above: Result Comment: ACCC P [...] CHEST 1995;108:231S-246S. Performed By: #### L [id number] ####[facility] ([employer])[address] [place] [address] PROTHROMBIN TIME (PT) IN PPP BY COAGULATION ASSAY 17.9 Seconds High 12.3-14.8 [facility] Comment on above: Performed By: #### L [id number] ####[facility] ([employer])[address] [place] [address] SODIUM, WHOLE BLOODon 2022 SODIUM, WHOLE BLOOD 141 Normal 136-145 [facility] Comment on above: Performed By: #### S ODIUM, WHOLE BLOOD ####[facility] [id number] [place] [address] [place] SODIUM, WHOLE BLOOD 141 Normal 136-145 [facility] Comment on above: Performed By: #### S ODIUM, WHOLE BLOOD ####[facility] [id number] [place] [address] [place] SODIUM, WHOLE BLOOD 143 Normal 136-145 [facility] Comment on above: Performed By: #### S ODIUM, WHOLE BLOOD ####[facility] [id number] [place] [address] [place] SODIUM, WHOLE BLOOD 144 Normal 136-145 [facility] Comment on above: Performed By: #### S ODIUM, WHOLE BLOOD ####[facility] [id number] [place] [address] [place] TROPONIN Ion 04-23-2023 Troponin I.cardiac [Mass/Vol] 22.65 ng/mL Critically high 0.00-0.04 [facility] Comment on above: Result Comment: M-TR PABLOONIN INITIAL CRITICAL HIGH; RESPUN AND RETESTED Performed By: #### L [id number] ####[facility] ([facility])[address] [place] [address] ANESon 04-22-2023 ANES Normal [facility] APTTon 04-22-2023 ACTIVATED PARTIAL THROMBOPLASTIN TIME IN PPP BY COAGULATION ASSAY 43.4 Seconds High 25.0-35.0 [facility] Comment on above: Result Comment: Clin ical significance of the APTT is questionable in the presence of heparin. Performed By: #### L [id number] ####[facility] ([employer])[address] [place] [address] ACTIVATED PARTIAL THROMBOPLASTIN TIME IN PPP BY COAGULATION ASSAY 36.9 Seconds High 25.0-35.0 [facility] Comment on above: Result Comment: Clin ical significance of the APTT is questionable in the presence of heparin. Performed By: #### L [id number] ####[facility] ([facility])[address] [place] [address] ACTIVATED PARTIAL THROMBOPLASTIN TIME IN PPP BY COAGULATION ASSAY 40.3 Seconds High 25.0-35.0 [facility] Comment on above: Order Comment: Pre-o p diagnosis:NSTEMI (non-ST elevated myocardial infarction) (CMS/HCC) [I21.4]Acute non-ST segment elevation myocardial infarction (CMS/HCC) [I21.4]Coronary artery disease, unspecified vessel or lesion type, unspecified whether angina present, unspecified whether [place] or transplanted heart [I25.10] Result Comment: Clin ical significance of the APTT is questionable in the presence of heparin. Performed By: #### L [id number] ####[facility] ([facility])[address] [place] [address] BASIC METABOLIC PANELon 11-0 -2022 Anion gap [Moles/Vol] 9 mmol/L Normal 7-20 [facility] Comment on above: Performed By: #### L [id number] ####[facility] ([facility])[address] [place] [address] Calcium [Mass/Vol] 7.9 mg/dL Low 8.6-10.3 [facility] Comment on above: Performed By: #### L [id number] ####[facility] ([facility])[address] [place] [address] Chloride [Moles/Vol] 114 mmol/L High 98-107 [facility] Comment on above: Performed By: #### L [id number] ####[facility] ([facility])[address] [place] [address] CO2 [Moles/Vol] 25 mmol/L Normal 21-31 [facility] Comment on above: Performed By: #### L [id number] ####[facility] ([facility])[address] [place] [address] Creatinine [Mass/Vol] 0.86 mg/dL Normal 0.70-1.30 [facility] Comment on above: Performed By: #### L [id number] ####[facility] ([facility])[address] [place] [address] GLOMERULAR FILTRATION RATE ML/MIN/1.73 SQ M.PREDICTED 93.7 mL/min/1.73m*2 Normal >60.0 [facility] Comment on above: Result Comment: [facility]???s estimated glomerular filtration rate (eGFR) will no [...] of individuals. Performed By: #### L [id number] ####[facility] ([facility])[address] [place] [address] Glucose [Mass/Vol] 162 mg/dL High 70-100 [facility] Comment on above: Performed By: #### L [id number] ####[facility] (BEAKER)[address] [place] [address] Potassium [Moles/Vol] 4.2 mmol/L Normal 3.5-5.1 [facility] Comment on above: Performed By: #### L [id number] ####[facility] ([facility] [place] [address] Sodium [Moles/Vol] 144 mmol/L Normal 136-145 [facility] Comment on above: Performed By: #### L [id number] ####[facility] (BEAKER)[address] [place] [address] Urea nitrogen [Mass/Vol] 19 mg/dL Normal 7-25 [facility] Comment on above: Performed By: #### L [id number] ####[facility] (BEAKER)[address] [place] [address] UREA NITROGEN/CREATININ E (MASS RATIO) IN SER/PLAS 22.1 Normal [facility] Comment on above: Performed By: #### L [id number] ####[facility] (BEAKER)[address] [place] [address] Anion gap [Moles/Vol] 7 mmol/L Normal 7-20 [facility] Comment on above: Performed By: #### L [id number] ####[facility] (BEAKER)[address] [place] [address] Calcium [Mass/Vol] 8.2 mg/dL Low 8.6-10.3 [facility] Comment on above: Performed By: #### L [id number] ####[facility] (BEAKER)[address] [place] [address] Chloride [Moles/Vol] 114 mmol/L High 98-107 [facility] Comment on above: Performed By: #### L [id number] ####[facility] (BEAKER)[address] [place] [address] CO2 [Moles/Vol] 29 mmol/L Normal 21-31 [facility] Comment on above: Performed By: #### L [id number] ####[facility] (BEAKER)[address] [place] [address] Creatinine [Mass/Vol] 0.77 mg/dL Normal 0.70-1.30 [facility] Comment on above: Performed By: #### L [id number] ####[facility] ([facility] [place] [address] GLOMERULAR FILTRATION RATE ML/MIN/1.73 SQ M.PREDICTED 96.9 mL/min/1.73m*2 Normal >60.0 [facility] Comment on above: Result Comment: [facility]???s estimated glomerular filtration rate (eGFR) will no [...] of individuals. Performed By: #### L [id number] ####[facility] (BEAKER)[address] [place] [address] Glucose [Mass/Vol] 142 mg/dL High 70-100 [facility] Comment on above: Performed By: #### L [id number] ####[facility] (BEAKER)[address] [place] [address] Potassium [Moles/Vol] 3.7 mmol/L Normal 3.5-5.1 [facility] Comment on above: Performed By: #### L [id number] ####[facility] (BEAKER)[address] [place] [address] Sodium [Moles/Vol] 146 mmol/L High 136-145 [facility] Comment on above: Performed By: #### L [id number] ####[facility] (BEAKER)[address] [place] [address] Urea nitrogen [Mass/Vol] 18 mg/dL Normal 7-25 [facility] Comment on above: Performed By: #### L [id number] ####[facility] (BEAKER)[address] [place] [address] UREA NITROGEN/CREATININ E (MASS RATIO) IN SER/PLAS 23.4 Normal [facility] Comment on above: Performed By: #### L [id number] ####[facility] (BEAKER)[address] [place] [address] Anion gap [Moles/Vol] 7 mmol/L Normal 7-20 [facility] Comment on above: Order Comment: Pre-o p diagnosis:NSTEMI (non-ST elevated myocardial infarction) (CMS/HCC) [I21.4]Acute non-ST segment elevation myocardial infarction (CMS/HCC) [I21.4]Coronary artery disease, unspecified vessel or lesion type, unspecified whether angina present, unspecified whether [place] or transplanted heart [I25.10] Performed By: #### L [id number] ####[facility] (BEAKER)[address] [place] [address] Calcium [Mass/Vol] 8.5 mg/dL Low 8.6-10.3 [facility] Comment on above: Order Comment: Pre-o p diagnosis:NSTEMI (non-ST elevated myocardial infarction) (CMS/HCC) [I21.4]Acute non-ST segment elevation myocardial infarction (CMS/HCC) [I21.4]Coronary artery disease, unspecified vessel or lesion type, unspecified whether angina present, unspecified whether [place] or transplanted heart [I25.10] Performed By: #### L [id number] ####[facility] (BEAKER)[address] [place] [address] Chloride [Moles/Vol] 116 mmol/L High 98-107 [facility] Comment on above: Order Comment: Pre-o p diagnosis:NSTEMI (non-ST elevated myocardial infarction) (CMS/HCC) [I21.4]Acute non-ST segment elevation myocardial infarction (CMS/HCC) [I21.4]Coronary artery disease, unspecified vessel or lesion type, unspecified whether angina present, unspecified whether [place] or transplanted heart [I25.10] Performed By: #### L [id number] ####[facility] (BEAKER)[address] [facility] [place] [address] CO2 [Moles/Vol] 25 mmol/L Normal 21-31 [facility] Comment on above: Order Comment: Pre-o p diagnosis:NSTEMI (non-ST elevated myocardial infarction) (CMS/HCC) [I21.4]Acute non-ST segment elevation myocardial infarction (CMS/HCC) [I21.4]Coronary artery disease, unspecified vessel or lesion type, unspecified whether angina present, unspecified whether [place] or transplanted heart [I25.10] Performed By: #### L [id number] ####[facility] (BEAKER)[address] [place] [address] Creatinine [Mass/Vol] 0.82 mg/dL Normal 0.70-1.30 [facility] Comment on above: Order Comment: Pre-o p diagnosis:NSTEMI (non-ST elevated myocardial infarction) (CMS/HCC) [I21.4]Acute non-ST segment elevation myocardial infarction (CMS/HCC) [I21.4]Coronary artery disease, unspecified vessel or lesion type, unspecified whether angina present, unspecified whether [place] or transplanted heart [I25.10] Performed By: #### L [id number] ####[facility] ([employer])[address] [place] [address] GLOMERULAR FILTRATION RATE ML/MIN/1.73 SQ M.PREDICTED 95.1 mL/min/1.73m*2 Normal >60.0 [facility] Comment on above: Order Comment: Pre-o p diagnosis:NSTEMI (non-ST elevated myocardial infarction) (CMS/HCC) [I21.4]Acute non-ST segment elevation myocardial infarction (CMS/HCC) [I21.4]Coronary artery disease, unspecified vessel or lesion type, unspecified whether angina present, unspecified whether [place] or transplanted heart [I25.10] Result Comment: The [facility]???s estimated glomerular filtration rate (eGFR) will no [...] of individuals. Performed By: #### L [id number] ####[facility] ([facility])[address] [place] [address] Glucose [Mass/Vol] 198 mg/dL High 70-100 [facility] Comment on above: Order Comment: Pre-o p diagnosis:NSTEMI (non-ST elevated myocardial infarction) ([facility]/HCC) [I21.4]Acute non-ST segment elevation myocardial infarction (CMS/HCC) [I21.4]Coronary artery disease, unspecified vessel or lesion type, unspecified whether angina present, unspecified whether [place] or transplanted heart [I25.10] Performed By: #### L [id number] ####[facility] ([employer])[address] [place] [address] Potassium [Moles/Vol] 3.1 mmol/L Low 3.5-5.1 [facility] Comment on above: Order Comment: Pre-o p diagnosis:NSTEMI (non-ST elevated myocardial infarction) (CMS/HCC) [I21.4]Acute non-ST segment elevation myocardial infarction (CMS/HCC) [I21.4]Coronary artery disease, unspecified vessel or lesion type, unspecified whether angina present, unspecified whether [place] or transplanted heart [I25.10] Performed By: #### L [id number] ####[facility] (BEAKER)[address] [facility] [address] Sodium [Moles/Vol] 145 mmol/L Normal 136-145 [facility] Comment on above: Order Comment: Pre-o p diagnosis:NSTEMI (non-ST elevated myocardial infarction) (CMS/HCC) [I21.4]Acute non-ST segment elevation myocardial infarction (CMS/HCC) [I21.4]Coronary artery disease, unspecified vessel or lesion type, unspecified whether angina present, unspecified whether [place] or transplanted heart [I25.10] Performed By: #### L [id number] ####[facility] (BEAKER)[address] [facility] [address] Urea nitrogen [Mass/Vol] 18 mg/dL Normal 7-25 [facility] Comment on above: Order Comment: Pre-o p diagnosis:NSTEMI (non-ST elevated myocardial infarction) (CMS/HCC) [I21.4]Acute non-ST segment elevation myocardial infarction (CMS/HCC) [I21.4]Coronary artery disease, unspecified vessel or lesion type, unspecified whether angina present, unspecified whether [place] or transplanted heart [I25.10] Performed By: #### L [id number] ####[facility] (BEAKER)[address] [facility] [address] UREA NITROGEN/CREATININ E (MASS RATIO) IN SER/PLAS 22.0 Normal [facility] Comment on above: Order Comment: Pre-o p diagnosis:NSTEMI (non-ST elevated myocardial infarction) (CMS/HCC) [I21.4]Acute non-ST segment elevation myocardial infarction (CMS/HCC) [I21.4]Coronary artery disease, unspecified vessel or lesion type, unspecified whether angina present, unspecified whether [place] or transplanted heart [I25.10] Performed By: #### L [id number] ####[facility] ([facility])[address] [place] [address] CBCon 04-22-2023 Erythrocyte distribution width (RBC) [Ratio] 13.1 % Normal 11.5-15.0 [facility] Comment on above: Performed By: #### L [id number] ####[facility] ([facility])[address] [place] [address] ERYTHROCYTE MEAN CORPUSCULAR HEMOGLOBIN CONCENTRATION (G/DL) BY AUTOMATED 34.7 g/dL Normal 32.0-35.0 [facility] Comment on above: Performed By: #### L [id number] ####[facility] ([facility])[address] [place] [address] Hematocrit (Bld) [Volume fraction] 32.6 % Low 39.0-55.0 [facility] Comment on above: Performed By: #### L [id number] ####[facility] ([facility])[address] [place] [address] Hemoglobin (Bld) [Mass/Vol] 11.3 g/dL Low 13.0-17.0 [facility] Comment on above: Performed By: #### L [id number] ####[facility] ([facility])[address] [place] [address] MCH (RBC) [Entitic mass] 31.1 pg Normal 27.0-33.0 [facility] Comment on above: Performed By: #### L [id number] ####[facility] ([facility])[address] [place] [address] MCV (RBC) [Entitic vol] 89.8 fL Normal 82.0-98.0 [facility] Comment on above: Performed By: #### L [id number] ####[facility] ([facility] [place] [address] PLATELETS (10*3/UL) IN BLOOD AUTOMATED COUNT 107 10*3/uL Low 150-400 [facility] Comment on above: Performed By: #### L [id number] ####[facility] (BEAKER)[address] [place] [address] RBC (Bld) [#/Vol] 3.63 10*6/uL Low 4.20-5.70 [facility] Comment on above: Performed By: #### L [id number] ####[facility] (BEAKER)[address] [place] [address] WBC (Bld) [#/Vol] 18.54 10*3/uL High 4.00-10.60 [facility] Comment on above: Performed By: #### L [id number] ####[facility] (BEAKER)[address] [place] [address] Erythrocyte distribution width (RBC) [Ratio] 13.0 % Normal 11.5-15.0 [facility] Comment on above: Order Comment: Pre-o p diagnosis:NSTEMI (non-ST elevated myocardial infarction) (CMS/HCC) [I21.4]Acute non-ST segment elevation myocardial infarction (CMS/HCC) [I21.4]Coronary artery disease, unspecified vessel or lesion type, unspecified whether angina present, unspecified whether [place] or transplanted heart [I25.10] Performed By: #### L [id number] ####[facility] (BEAKER)[address] [place] [address] ERYTHROCYTE MEAN CORPUSCULAR HEMOGLOBIN CONCENTRATION (G/DL) BY AUTOMATED 34.5 g/dL Normal 32.0-35.0 [facility] Comment on above: Order Comment: Pre-o p diagnosis:NSTEMI (non-ST elevated myocardial infarction) (CMS/HCC) [I21.4]Acute non-ST segment elevation myocardial infarction (CMS/HCC) [I21.4]Coronary artery disease, unspecified vessel or lesion type, unspecified whether angina present, unspecified whether [place] or transplanted heart [I25.10] Performed By: #### L [id number] ####[facility] (BEAKER)[address] [place] [address] Hematocrit (Bld) [Volume fraction] 26.7 % Low 39.0-55.0 [facility] Comment on above: Order Comment: Pre-o p diagnosis:NSTEMI (non-ST elevated myocardial infarction) (CMS/HCC) [I21.4]Acute non-ST segment elevation myocardial infarction (CMS/HCC) [I21.4]Coronary artery disease, unspecified vessel or lesion type, unspecified whether angina present, unspecified whether [place] or transplanted heart [I25.10] Performed By: #### L [id number] ####[facility] ([employer])[address] [facility] [address] Hemoglobin (Bld) [Mass/Vol] 9.2 g/dL Low 13.0-17.0 [facility] Comment on above: Order Comment: Pre-o p diagnosis:NSTEMI (non-ST elevated myocardial infarction) (CMS/HCC) [I21.4]Acute non-ST segment elevation myocardial infarction (CMS/HCC) [I21.4]Coronary artery disease, unspecified vessel or lesion type, unspecified whether angina present, unspecified whether [place] or transplanted heart [I25.10] Performed By: #### L [id number] ####[facility] ([employer])[address] [facility] [place] [address] MCH (RBC) [Entitic mass] 31.4 pg Normal 27.0-33.0 [facility] Comment on above: Order Comment: Pre-o p diagnosis:NSTEMI (non-ST elevated myocardial infarction) (CMS/HCC) [I21.4]Acute non-ST segment elevation myocardial infarction (CMS/HCC) [I21.4]Coronary artery disease, unspecified vessel or lesion type, unspecified whether angina present, unspecified whether [place] or transplanted heart [I25.10] Performed By: #### L [id number] ####[facility] ([employer])[address] [facility] [address] MCV (RBC) [Entitic vol] 91.1 fL Normal 82.0-98.0 [facility] Comment on above: Order Comment: Pre-o p diagnosis:NSTEMI (non-ST elevated myocardial infarction) (CMS/HCC) [I21.4]Acute non-ST segment elevation myocardial infarction (CMS/HCC) [I21.4]Coronary artery disease, unspecified vessel or lesion type, unspecified whether angina present, unspecified whether [place] or transplanted heart [I25.10] Performed By: #### L [id number] ####[facility] (BEAKER)[address] [place] [address] PLATELETS (10*3/UL) IN BLOOD AUTOMATED COUNT 134 10*3/uL Low 150-400 [facility] Comment on above: Order Comment: Pre-o p diagnosis:NSTEMI (non-ST elevated myocardial infarction) (CMS/HCC) [I21.4]Acute non-ST segment elevation myocardial infarction (CMS/HCC) [I21.4]Coronary artery disease, unspecified vessel or lesion type, unspecified whether angina present, unspecified whether [place] or transplanted heart [I25.10] Performed By: #### L [id number] ####[facility] (BEAKER)[address] [place] [address] RBC (Bld) [#/Vol] 2.93 10*6/uL Low 4.20-5.70 [facility] Comment on above: Order Comment: Pre-o p diagnosis:NSTEMI (non-ST elevated myocardial infarction) (CMS/HCC) [I21.4]Acute non-ST segment elevation myocardial infarction (CMS/HCC) [I21.4]Coronary artery disease, unspecified vessel or lesion type, unspecified whether angina present, unspecified whether [place] or transplanted heart [I25.10] Performed By: #### L [id number] ####[facility] (BEAKER)[address] [place] [address] WBC (Bld) [#/Vol] 21.16 10*3/uL High 4.00-10.60 [facility] Comment on above: Order Comment: Pre-o p diagnosis:NSTEMI (non-ST elevated myocardial infarction) (CMS/HCC) [I21.4]Acute non-ST segment elevation myocardial infarction (CMS/HCC) [I21.4]Coronary artery disease, unspecified vessel or lesion type, unspecified whether angina present, unspecified whether [place] or transplanted heart [I25.10] Performed By: #### L [id number] ####[facility] ([facility] [place] [address] CBC WITH AUTO DIFFERENTIALon 04-22-2023 Basophils (Bld) [#/Vol] 0.01 10*3/uL Normal 0.00-0.20 [facility] Comment on above: Performed By: #### L [id number] ####[facility] ([facility])[address] [place] [address] Basophils/100 WBC (Bld) 0.1 % Normal 0.0-1.0 [facility] Comment on above: Performed By: #### L [id number] ####[facility] ([facility] [place] [address] Eosinophils (Bld) [#/Vol] 0.00 10*3/uL Normal 0.00-0.50 [facility] Comment on above: Performed By: #### L [id number] ####[facility] ([facility] [place] [address] Eosinophils/100 WBC (Bld) 0.0 % Normal 0.0-6.0 [facility] Comment on above: Performed By: #### L [id number] ####[facility] ([facility] [place] [address] Erythrocyte distribution width (RBC) [Ratio] 13.2 % Normal 11.5-15.0 [facility] Comment on above: Performed By: #### L [id number] ####[facility] ([facility] [place] [address] ERYTHROCYTE MEAN CORPUSCULAR HEMOGLOBIN CONCENTRATION (G/DL) BY AUTOMATED 35.6 g/dL High 32.0-35.0 [facility] Comment on above: Performed By: #### L [id number] ####[facility] (BEAKER)[address] [place] [address] Hematocrit (Bld) [Volume fraction] 28.4 % Low 39.0-55.0 [facility] Comment on above: Performed By: #### L [id number] ####[facility] ([facility])[address] [place] [address] Hemoglobin (Bld) [Mass/Vol] 10.1 g/dL Low 13.0-17.0 [facility] Comment on above: Performed By: #### L [id number] ####[facility] ([facility])[address] [place] [address] Immature granulocytes (Bld) [#/Vol] 0.10 10*3/uL Normal 0.00-0.20 [facility] Comment on above: Performed By: #### L [id number] ####[facility] ([facility])[address] [place] [address] Immature granulocytes/100 WBC (Bld) 0.7 % Normal 0.0-1.0 [facility] Comment on above: Performed By: #### L [id number] ####[facility] ([facility])[address] [place] [address] IMMATURE PLATELET FRACTION % 2.3 % Normal 0.8-6.3 [facility] Comment on above: Performed By: #### L [id number] ####[facility] ([facility])[address] [place] [address] Lymphocytes (Bld) [#/Vol] 0.95 10*3/uL Low 1.20-4.00 [facility] Comment on above: Performed By: #### L [id number] ####[facility] ([facility])[address] [place] [address] Lymphocytes/100 WBC (Bld) 6.4 % Low 20.0-45.0 [facility] Comment on above: Performed By: #### L [id number] ####[facility] ([facility])[address] [place] [address] MCH (RBC) [Entitic mass] 31.7 pg Normal 27.0-33.0 [facility] Comment on above: Performed By: #### L [id number] ####[facility] (BEAKER)[address] [place] [address] MCV (RBC) [Entitic vol] 89.0 fL Normal 82.0-98.0 [facility] Comment on above: Performed By: #### L [id number] ####[facility] (BEAKER)[address] [place] [address] Monocytes (Bld) [#/Vol] 1.37 10*3/uL High 0.10-1.00 [facility] Comment on above: Performed By: #### L [id number] ####[facility] (BEAKER)[address] [place] [address] Monocytes/100 WBC (Bld) 9.3 % Normal 5.0-12.0 [facility] Comment on above: Performed By: #### L [id number] ####[facility] (BEAKER)[address] [place] [address] Neutrophils (Bld) [#/Vol] 12.36 10*3/uL High 1.60-7.60 [facility] Comment on above: Performed By: #### L [id number] ####[facility] (BEAKER)[address] [place] [address] Neutrophils/100 WBC (Bld) 83.5 % High 40.0-72.0 [facility] Comment on above: Performed By: #### L [id number] ####[facility] (BEAKER)[address] [place] [address] NRBC (PER 100 WBCS) BY AUTOMATED COUNT 0.0 % Normal 0 [facility] Comment on above: Performed By: #### L [id number] ####[facility] (BEAKER)[address] [place] [address] PLATELETS (10*3/UL) IN BLOOD AUTOMATED COUNT 108 10*3/uL Low 150-400 [facility] Comment on above: Performed By: #### L [id number] ####[facility] (BEAKER)[address] [place] [address] RBC (Bld) [#/Vol] 3.19 10*6/uL Low 4.20-5.70 [facility] Comment on above: Performed By: #### L [id number] ####[facility] (BEAKER)[address] [place] [address] WBC (Bld) [#/Vol] 14.79 10*3/uL High 4.00-10.60 [facility] Comment on above: Performed By: #### L [id number] ####[facility] (BEAKER)[address] [place] [address] CO-OXIMETRYon 04-22-2023 CARBOXYHEMOGLOBIN/ HEMOGLOBIN TOTAL % IN BLOOD 1.5 % Normal [facility] Comment on above: Performed By: #### L [id number] ####[facility] RESPIRATORY [id number] [place] [address] [facility] Hemoglobin (Bld) [Mass/Vol] 12.7 g/dL Normal [facility] Comment on above: Performed By: #### L [id number] ####[facility] RESPIRATORY [id number] [place] [address] [place] METHEMOGLOBIN/100 IN BLOOD 0.1 % Normal 0.0-1.5 [facility] Comment on above: Performed By: #### L [id number] ####[facility] RESPIRATORY [id number] [place] [address] [place] Oxygen saturation in Blood 71.7 % Normal [facility] Comment on above: Performed By: #### L [id number] ####[facility] RESPIRATORY [id number] [place] [address] [place] OXYGENATED HEMOGLOBIN IN BLOOD 70.6 % Normal [facility] Comment on above: Performed By: #### L [id number] ####[facility] RESPIRATORY [id number] [place] [address] [place] CONSULTon 04-22-2023 CONSULT Normal [facility] FIBRINOGENon 04-22-2023 Magnesium [Mass/Vol] 162 mg/dL Normal 150-425 [facility] Comment on above: Order Comment: Pre-o p diagnosis:NSTEMI (non-ST elevated myocardial infarction) (CMS/HCC) [I21.4]Acute non-ST segment elevation myocardial infarction (CMS/HCC) [I21.4]Coronary artery disease, unspecified vessel or lesion type, unspecified whether angina present, unspecified whether [place] or transplanted heart [I25.10] Performed By: #### L [id number] ####[facility] ([facility])[address] [place] [address] HEPATIC FUNCTION PANELon Albumin [Mass/Vol] 2.5 g/dL Low 3.5-5.7 [facility] Comment on above: Performed By: #### L [id number] ####[facility] ([facility])[address] [place] [address] ALP [Catalytic activity/Vol] 54 U/L Normal 34-104 [facility] Comment on above: Performed By: #### L [id number] ####[facility] ([facility])[address] [place] [address] ALT [Catalytic activity/Vol] 10 U/L Normal 7-52 [facility] Comment on above: Performed By: #### L [id number] ####[facility] ([facility])[address] [place] [address] AST [Catalytic activity/Vol] 34 U/L Normal 13-39 [facility] Comment on above: Performed By: #### L [id number] ####[facility] ([facility])[address] [place] [address] Bilirubin [Mass/Vol] 0.6 mg/dL Normal 0.3-1.0 [facility] Comment on above: Performed By: #### L [id number] ####[facility] ([facility])[address] [place] [address] Magnesium [Mass/Vol] 0.2 mg/dL Normal 0-0.2 [facility] Comment on above: Performed By: #### L [id number] ####[facility] ([facility])[address] [place] [address] Protein [Mass/Vol] 3.7 g/dL Low 6.0-8.3 [facility] Comment on above: Performed By: #### L [id number] ####[facility] ([facility])[address] [place] [address] HISTOLOGY - TISSUE EXAMon LAB AP CASE REPORT Normal [facility] Comment on above: Order Comment: Pre-o p diagnosis:NSTEMI (non-ST elevated myocardial infarction) (CMS/HCC) [I21.4]Acute non-ST segment elevation myocardial infarction (CMS/HCC) [I21.4]Coronary artery disease, unspecified vessel or lesion type, unspecified whether angina present, unspecified whether [place] or transplanted heart [I25.10] Result Comment: Surg ical Pathology Case: [id number] Provider: Chaitanya Ames MD Collected: 04/22/2023 0928Ordering Location: [facility] Main Operating Room Received: 04/22/2023 1923Pathologist: RAHEEM Wilsonpecimens: A) - Lymph Node, ANTERIOR MEDIASTINAL LYMPH NODE B) - Lymph Node, RIGHT INTERNAL MAMMARY LYMPH NODE FOR HISTOLOGY Performed By: #### L [id number] ####[facility] ([place])[address] [place] [address] LAB AP CLINICAL INFORMATION Normal [facility] Comment on above: Order Comment: Pre-o p diagnosis:NSTEMI (non-ST elevated myocardial infarction) (CMS/HCC) [I21.4]Acute non-ST segment elevation myocardial infarction (CMS/HCC) [I21.4]Coronary artery disease, unspecified vessel or lesion type, unspecified whether angina present, unspecified whether [place] or transplanted heart [I25.10] Result Comment: Post -Op HzeorajtsH39.4 - NSTEMI (non-ST elevated myocardial infarction) (CMS/HCC) [ICD-10-CM]I21.4 - Acute non-ST segment elevation myocardial infarction (CMS/HCC) [ICD-10-CM]I25.10 - Coronary artery disease, unspecified vessel or lesion type, unspecified whether angina present, unspecified whether [place] or transplanted heart [ICD-10-CM] Performed By: #### L [id number] ####[facility] (BEAKER)[address] [place] [address] LAB AP GROSS DESCRIPTION A. Lymph Node. Normal [facility] Comment on above: Order Comment: Pre-o p diagnosis:NSTEMI (non-ST elevated myocardial infarction) (CMS/HCC) [I21.4]Acute non-ST segment elevation myocardial infarction (CMS/HCC) [I21.4]Coronary artery disease, unspecified vessel or lesion type, unspecified whether angina present, unspecified whether [place] or transplanted heart [I25.10] Result Comment: Rece [...] submitted in a single cassette.Jenny Guajardo [employer]ologists' Tractor Technician Performed By: #### L [id number] ####[facility] ([facility] [place] [address] LAB AP MICROSCOPIC DESCRIPTION Microscopic examination performed. [facility] Comment on above: Order Comment: Pre-o p diagnosis:NSTEMI (non-ST elevated myocardial infarction) (CMS/HCC) [I21.4]Acute non-ST segment elevation myocardial infarction (CMS/HCC) [I21.4]Coronary artery disease, unspecified vessel or lesion type, unspecified whether angina present, unspecified whether [place] or transplanted heart [I25.10] Performed By: #### L [id number] ####[facility] ([facility] [place] [address] LAB AP REPORT FINAL DIAGNOSIS NARRATIVE Normal [facility] Comment on above: Order Comment: Pre-o p diagnosis:NSTEMI (non-ST elevated myocardial infarction) (CMS/HCC) [I21.4]Acute non-ST segment elevation myocardial infarction (CMS/HCC) [I21.4]Coronary artery disease, unspecified vessel or lesion type, unspecified whether angina present, unspecified whether [place] or transplanted heart [I25.10] Result Comment: A. L ymph node, anterior mediastinal, regional resection: - Two benign lymph nodes with sinus histiocytosis and anthracosis (0/2).B. Lymph node, right internal mammary, regional resection: - One benign lymph node with sinus histiocytosis and anthracosis (0/1). - Minute fragment of skeletal muscle and fibroadipose tissue with focal chronic inflammation. Performed By: #### L [id number] ####[facility] ([employer])[address] [place] [address] HPon 04-22-2023 HP H&P reviewed. The pa tient was examined and there are no changes to the H&P. Normal [facility] LACTIC ACID WITH 4 HOUR REFL EXon 04-22-2023 LACTATE (MMOL/L) IN SER/PLAS 2.3 mmol/L High 0.5-2.2 [facility] Comment on above: Order Comment: Pre-o p diagnosis:NSTEMI (non-ST elevated myocardial infarction) (CMS/HCC) [I21.4]Acute non-ST segment elevation myocardial infarction (CMS/HCC) [I21.4]Coronary artery disease, unspecified vessel or lesion type, unspecified whether angina present, unspecified whether [place] or transplanted heart [I25.10] Performed By: #### L [id number] ####[facility] ([employer])[address] [place] [address] LACTIC ACID, PLASMAon 2022 LACTATE (MMOL/L) IN SER/PLAS 2.6 mmol/L Critically high 0.5-2.2 [facility] Comment on above: Result Comment: Prev ious result verified on 04/22/2023 1906 on specimen/case [id number] called with component Lactate for procedure Lactic acid, plasma with value 2.7 mmol/L. Performed By: #### L [id number] ####[facility] ([facility])[address] [place] [address] LACTATE (MMOL/L) IN SER/PLAS 2.7 mmol/L Critically high 0.5-2.2 [facility] Comment on above: Performed By: #### L [id number] ####[facility] ([facility])[address] [place] [address] MAGNESIUMon 04-22-2023 Magnesium [Mass/Vol] 2.1 mg/dL Normal 1.9-2.7 [facility] Comment on above: Performed By: #### L [id number] ####[facility] ([facility])[address] [place] [address] Magnesium [Mass/Vol] 2.4 mg/dL Normal 1.9-2.7 [facility] Comment on above: Order Comment: Pre-o p diagnosis:NSTEMI (non-ST elevated myocardial infarction) (CMS/HCC) [I21.4]Acute non-ST segment elevation myocardial infarction (CMS/HCC) [I21.4]Coronary artery disease, unspecified vessel or lesion type, unspecified whether angina present, unspecified whether [place] or transplanted heart [I25.10] Performed By: #### L [id number] ####[facility] ([facility])[address] [place] [address] OPNOTEon 04-22-2023 OPNOTE Normal [facility] PHOSPHORUSon 04-22-2023 Magnesium [Mass/Vol] 3.6 mg/dL Normal 2.5-5.0 [facility] Comment on above: Performed By: #### L [id number] ####[facility] ([facility])[address] [place] [address] POCT ACTIVATED CLOTTING TIME UNSOLICITED RESULTSon 04-22-2023 POC ACTIVATED CLOTTING TIME 132 sec Normal 82-152 [facility] Comment on above: Performed By: #### L [id number] ####[facility] (BEAKER)[address] [place] [address] POC ACTIVATED CLOTTING TIME 341 sec High 82-152 [facility] Comment on above: Performed By: #### L [id number] ####[facility] (BEAKER)[address] [place] [address] POC ACTIVATED CLOTTING TIME 473 sec High 82-152 [facility] Comment on above: Performed By: #### L [id number] ####[facility] (BEAKER)[address] [place] [address] POC ACTIVATED CLOTTING TIME 516 sec High 82-152 [facility] Comment on above: Performed By: #### L [id number] ####[facility] (BEAKER)[address] [place] [address] POC ACTIVATED CLOTTING TIME 460 sec High 82-152 [facility] Comment on above: Performed By: #### L [id number] ####[facility] (BEAKER)[address] [place] [address] POC ACTIVATED CLOTTING TIME 446 sec High 82-152 [facility] Comment on above: Performed By: #### L [id number] ####[facility] (BEAKER)[address] [place] [address] POC ACTIVATED CLOTTING TIME 479 sec High 82-152 [facility] Comment on above: Performed By: #### L [id number] ####[facility] (BEAKER)[address] [place] [address] POC ACTIVATED CLOTTING TIME 447 sec High 82-152 [facility] Comment on above: Performed By: #### L [id number] ####[facility] (BEAKER)[address] [place] [address] POC ACTIVATED CLOTTING TIME 596 sec High 82-152 [facility] Comment on above: Performed By: #### L [id number] ####[facility] (BEAKER)[address] [place] [address] POC ACTIVATED CLOTTING TIME 602 sec High 82-152 [facility] Comment on above: Performed By: #### L [id number] ####[facility] ([facility] [place] [address] POC ACTIVATED CLOTTING TIME 143 sec Normal 82-152 [facility] Comment on above: Performed By: #### L [id number] ####[facility] (AKER)[address] [place] [address] POCT GLUCOSE METER UNSOLICIT ED RESULTSon 04-22-2023 Glucose [Mass/Vol] 152 mg/dL High 70-105 [facility] Comment on above: Order Comment: Waive d Testing in the ED is performed under the ED CLIA certificate #[id number]. Result Comment: ahoo [email or web address] Performed By: #### L [id number] ####[facility] ([facility])[address] [place] [address] Glucose [Mass/Vol] 167 mg/dL High 70-105 [facility] Comment on above: Order Comment: Waive d Testing in the ED is performed under the ED CLIA certificate #[id number]. Result Comment: [email or web address] [email or web address] Performed By: #### L [id number] ####[facility] ([facility])[address] [place] [address] Glucose [Mass/Vol] 156 mg/dL High 70-105 [facility] Comment on above: Order Comment: Waive d Testing in the ED is performed under the ED CLIA certificate #[id number]. Result Comment: [email or web address] [email or web address] Performed By: #### L [id number] ####[facility] ([facility])[address] [place] [address] Glucose [Mass/Vol] 121 mg/dL High 70-105 [facility] Comment on above: Order Comment: Waive d Testing in the ED is performed under the ED CLIA certificate #[id number]. Result Comment: ahoo ver7 Performed By: #### L [id number] ####[facility] (BEAKER)[address] [place] [address] Glucose [Mass/Vol] 122 mg/dL High 70-105 [facility] Comment on above: Order Comment: Waive d Testing in the ED is performed under the ED CLIA certificate #[id number]. Result Comment: geetha man Performed By: #### L [id number] ####[facility] ([facility] [place] [address] Glucose [Mass/Vol] 137 mg/dL High 70-105 [facility] Comment on above: Order Comment: Waive d Testing in the ED is performed under the ED CLIA certificate #[id number]. Result Comment: cfit [email or web address] Performed By: #### L [id number] ####[facility] ([facility])[address] [place] [address] Glucose [Mass/Vol] 107 mg/dL High 70-105 [facility] Comment on above: Order Comment: Waive d Testing in the ED is performed under the ED CLIA certificate #[id number]. Result Comment: hste [email or web address] Performed By: #### L [id number] ####[facility] ([facility] [place] [address] POCT PERFUSION PANEL UNSOLIC ITED RESULTSon 04-22-2023 CO2 [Moles/Vol] 25.0 mmol/L Normal 21.0-29.0 [facility] Comment on above: Performed By: #### L [id number] ####[facility] ([facility] [place] [address] Glucose [Mass/Vol] 195 mg/dL High 70-105 [facility] Comment on above: Performed By: #### L [id number] ####[facility] ([facility] [place] [address] HCO3 (Bld) [Moles/Vol] 23.6 mmol/L Normal 23.0-28.0 [facility] Comment on above: Performed By: #### L [id number] ####[facility] (BEAKER)[address] [place] [address] Hematocrit (Bld) [Volume fraction] 27 % Low 38-51 [facility] Comment on above: Performed By: #### L [id number] ####[facility] ([facility] [place] [address] Hemoglobin (Bld) [Mass/Vol] 9.2 g/dL Low 12.0-17.0 [facility] Comment on above: Performed By: #### L [id number] ####[facility] ([facility])[address] [place] [address] POCT BASE EXCESS -3.0 mmol/L Low -2.0-3.0 [facility] Comment on above: Performed By: #### L [id number] ####[facility] ([facility])[address] [place] [address] POCT IONIZED CALCIUM 1.35 mmol/L High 1.12-1.32 [facility] Comment on above: Performed By: #### L [id number] ####[facility] ([facility])[address] [place] [address] POCT PCO2 47.6 mmHg Normal 41.0-51.0 [facility] Comment on above: Performed By: #### L [id number] ####[facility] ([facility])[address] [place] [address] POCT PH 7.30 Low 7.31-7.41 [facility] Comment on above: Performed By: #### L [id number] ####[facility] ([facility])[address] [place] [address] POCT PO2 355 mmHg High 80-105 [facility] Comment on above: Performed By: #### L [id number] ####[facility] ([facility] [place] [address] POCT SO2 100 % High 95-98 [facility] Comment on above: Performed By: #### L [id number] ####[facility] (BEAKER)[address] [place] [address] Potassium [Moles/Vol] 3.2 mmol/L Low 3.5-4.9 [facility] Comment on above: Performed By: #### L [id number] ####[facility] ([facility])[address] [place] [address] Sodium [Moles/Vol] 146 mmol/L Normal 138.0-146.0 [facility] Comment on above: Performed By: #### L [id number] ####[facility] ([facility])[address] [place] [address] CO2 [Moles/Vol] 26.0 mmol/L Normal 21.0-29.0 [facility] Comment on above: Performed By: #### L [id number] ####[facility] [facility] [place] [address] Glucose [Mass/Vol] 196 mg/dL High 70-105 [facility] Comment on above: Performed By: #### L [id number] ####[facility] ([facility])[address] [place] [address] HCO3 (Bld) [Moles/Vol] 24.2 mmol/L Normal 23.0-28.0 [facility] Comment on above: Performed By: #### L [id number] ####[facility] ([facility])[address] [place] [address] Hematocrit (Bld) [Volume fraction] 21 % Low 38-51 [facility] Comment on above: Performed By: #### L [id number] ####[facility] ([facility])[address] [place] [address] Hemoglobin (Bld) [Mass/Vol] 7.1 g/dL Low 12.0-17.0 [facility] Comment on above: Performed By: #### L [id number] ####[facility] ([facility])[address] [place] [address] POCT BASE EXCESS -3.0 mmol/L Low -2.0-3.0 [facility] Comment on above: Performed By: #### L [id number] ####[facility] ([facility])[address] [place] [address] POCT IONIZED CALCIUM 1.19 mmol/L Normal 1.12-1.32 [facility] Comment on above: Performed By: #### L [id number] ####[facility] ([facility])[address] [place] [address] POCT PCO2 52.4 mmHg High 41.0-51.0 [facility] Comment on above: Performed By: #### L [id number] ####[facility] ([facility])[address] [place] [address] POCT PH 7.27 Low 7.31-7.41 [facility] Comment on above: Performed By: #### L [id number] ####[facility] ([facility])[address] [place] [address] POCT PO2 488 mmHg High 80-105 [facility] Comment on above: Performed By: #### L [id number] ####[facility] ([facility])[address] [place] [address] POCT SO2 100 % High 95-98 [facility] Comment on above: Performed By: #### L [id number] ####[facility] ([facility])[address] [place] [address] Potassium [Moles/Vol] 3.7 mmol/L Normal 3.5-4.9 [facility] Comment on above: Performed By: #### L [id number] ####[facility] ([facility])[address] [place] [address] Sodium [Moles/Vol] 145 mmol/L Normal 138.0-146.0 [facility] Comment on above: Performed By: #### L [id number] ####[facility] ([facility])[address] [place] [address] CO2 [Moles/Vol] 24.0 mmol/L Normal 21.0-29.0 [facility] Comment on above: Performed By: #### L [id number] ####[facility] ([facility])[address] [place] [address] Glucose [Mass/Vol] 177 mg/dL High 70-105 [facility] Comment on above: Performed By: #### L [id number] ####[facility] ([facility])[address] [place] [address] HCO3 (Bld) [Moles/Vol] 22.2 mmol/L Low 23.0-28.0 [facility] Comment on above: Performed By: #### L [id number] ####[facility] ([facility])[address] [place] [address] Hematocrit (Bld) [Volume fraction] 21 % Low 38-51 [facility] Comment on above: Performed By: #### L [id number] ####[facility] ([facility])[address] [place] [address] Hemoglobin (Bld) [Mass/Vol] 7.1 g/dL Low 12.0-17.0 [facility] Comment on above: Performed By: #### L [id number] ####[facility] ([facility])[address] [place] [address] POCT BASE EXCESS -4.0 mmol/L Low -2.0-3.0 [facility] Comment on above: Performed By: #### L [id number] ####[facility] ([facility])[address] [place] [address] POCT IONIZED CALCIUM 1.32 mmol/L Normal 1.12-1.32 [facility] Comment on above: Performed By: #### L [id number] ####[facility] ([facility])[address] [place] [address] POCT PCO2 44.7 mmHg Normal 41.0-51.0 [facility] Comment on above: Performed By: #### L [id number] ####[facility] ([facility])[address] [place] [address] POCT PH 7.30 Low 7.31-7.41 [facility] Comment on above: Performed By: #### L [id number] ####[facility] ([facility])[address] [place] [address] POCT PO2 449 mmHg High 80-105 [facility] Comment on above: Performed By: #### L [id number] ####[facility] ([facility])[address] [place] [address] POCT SO2 100 % High 95-98 [facility] Comment on above: Performed By: #### L [id number] ####[facility] ([facility])[address] [place] [address] Potassium [Moles/Vol] 4.4 mmol/L Normal 3.5-4.9 [facility] Comment on above: Performed By: #### L [id number] ####[facility] ([facility])[address] [place] [address] Sodium [Moles/Vol] 141 mmol/L Normal 138.0-146.0 [facility] Comment on above: Performed By: #### L [id number] ####[facility] ([facility])[address] [place] [address] CO2 [Moles/Vol] 25.0 mmol/L Normal 21.0-29.0 [facility] Comment on above: Performed By: #### L [id number] ####[facility] ([facility])[address] [place] [address] Glucose [Mass/Vol] 171 mg/dL High 70-105 [facility] Comment on above: Performed By: #### L [id number] ####[facility] ([facility])[address] [place] [address] HCO3 (Bld) [Moles/Vol] 24.0 mmol/L Normal 23.0-28.0 [facility] Comment on above: Performed By: #### L [id number] ####[facility] ([facility])[address] [place] [address] Hematocrit (Bld) [Volume fraction] 26 % Low 38-51 [facility] Comment on above: Performed By: #### L [id number] ####[facility] ([facility])[address] [address] Hemoglobin (Bld) [Mass/Vol] 8.8 g/dL Low 12.0-17.0 [facility] Comment on above: Performed By: #### L [id number] ####[facility] [address] POCT BASE EXCESS -1.0 mmol/L Normal -2.0-3.0 [facility] Comment on above: Performed By: #### L [id number] ####[facility] ([facility])[address] [address] POCT IONIZED CALCIUM 1.06 mmol/L Low 1.12-1.32 [facility] Comment on above: Performed By: #### L [id number] ####[facility] [address] POCT PCO2 38.1 mmHg Low 41.0-51.0 [facility] Comment on above: Performed By: #### L [id number] ####[facility] ([facility])[address] [address] POCT PH 7.41 Normal 7.31-7.41 [facility] Comment on above: Performed By: #### L [id number] ####[facility] ([facility])[address] [address] POCT PO2 534 mmHg High 80-105 [facility] Comment on above: Performed By: #### L [id number] ####[facility] ([facility])[address] [address] POCT SO2 100 % High 95-98 [facility] Comment on above: Performed By: #### L [id number] ####[facility] ([facility])[address] [address] Potassium [Moles/Vol] 4.1 mmol/L Normal 3.5-4.9 [facility] Comment on above: Performed By: #### L [id number] ####[facility] ([facility])[address] [place] [address] Sodium [Moles/Vol] 141 mmol/L Normal 138.0-146.0 [facility] Comment on above: Performed By: #### L [id number] ####[facility] ([facility])[address] [place] [address] CO2 [Moles/Vol] 27.0 mmol/L Normal 21.0-29.0 [facility] Comment on above: Performed By: #### L [id number] ####[facility] ([facility])[address] [place] [address] Glucose [Mass/Vol] 187 mg/dL High 70-105 [facility] Comment on above: Performed By: #### L [id number] ####[facility] ([facility])[address] [place] [address] HCO3 (Bld) [Moles/Vol] 25.8 mmol/L Normal 23.0-28.0 [facility] Comment on above: Performed By: #### L [id number] ####[facility] ([facility])[address] [place] [address] Hematocrit (Bld) [Volume fraction] 26 % Low 38-51 [facility] Comment on above: Performed By: #### L [id number] ####[facility] ([facility])[address] [place] [address] Hemoglobin (Bld) [Mass/Vol] 8.8 g/dL Low 12.0-17.0 [facility] Comment on above: Performed By: #### L [id number] ####[facility] ([facility])[address] [place] [address] POCT BASE EXCESS 1.0 mmol/L Normal -2.0-3.0 [facility] Comment on above: Performed By: #### L [id number] ####[facility] ([facility])[address] [address] POCT IONIZED CALCIUM 1.06 mmol/L Low 1.12-1.32 [facility] Comment on above: Performed By: #### L [id number] ####[facility] ([facility])[address] [address] POCT PCO2 40.4 mmHg Low 41.0-51.0 [facility] Comment on above: Performed By: #### L [id number] ####[facility] [address] POCT PH 7.41 Normal 7.31-7.41 [facility] Comment on above: Performed By: #### L [id number] ####[facility] ([facility])[address] [address] POCT PO2 506 mmHg High 80-105 [facility] Comment on above: Performed By: #### L [id number] ####[facility], [place] [address] POCT SO2 100 % High 95-98 [facility] Comment on above: Performed By: #### L [id number] ####[facility], [place] [address] Potassium [Moles/Vol] 4.2 mmol/L Normal 3.5-4.9 [facility] Comment on above: Performed By: #### L [id number] ####[facility] ([facility], [place] [address] Sodium [Moles/Vol] 141 mmol/L Normal 138.0-146.0 [facility] Comment on above: Performed By: #### L [id number] ####[facility] ([facility])[address], [place] [address] CO2 [Moles/Vol] 23.0 mmol/L Normal 21.0-29.0 [facility] Comment on above: Performed By: #### L [id number] ####[facility] ([facility])[address] [place] [address] Glucose [Mass/Vol] 211 mg/dL High 70-105 [facility] Comment on above: Performed By: #### L [id number] ####[facility] ([facility])[address] [place] [address] HCO3 (Bld) [Moles/Vol] 22.1 mmol/L Low 23.0-28.0 [facility] Comment on above: Performed By: #### L [id number] ####[facility] [place] [address] Hematocrit (Bld) [Volume fraction] 28 % Low 38-51 [facility] Comment on above: Performed By: #### L [id number] ####[facility] [place] [address] Hemoglobin (Bld) [Mass/Vol] 9.5 g/dL Low 12.0-17.0 [facility] Comment on above: Performed By: #### L [id number] ####[facility] ([facility])[address] [place] [address] POCT BASE EXCESS -3.0 mmol/L Low -2.0-3.0 [facility] Comment on above: Performed By: #### L [id number] ####[facility] [place] [address] POCT IONIZED CALCIUM 1.08 mmol/L Low 1.12-1.32 [facility] Comment on above: Performed By: #### L [id number] ####[facility] ([facility])[address] [place] [address] POCT PCO2 38.1 mmHg Low 41.0-51.0 [facility] Comment on above: Performed By: #### L [id number] ####[facility] ([facility])[address] [place] [address] POCT PH 7.37 Normal 7.31-7.41 [facility] Comment on above: Performed By: #### L [id number] ####[facility] ([facility])[address] [place] [address] POCT PO2 418 mmHg High 80-105 [facility] Comment on above: Performed By: #### L [id number] ####[facility] ([facility])[address] [place] [address] POCT SO2 100 % High 95-98 [facility] Comment on above: Performed By: #### L [id number] ####[facility] ([facility])[address] [place] [address] Potassium [Moles/Vol] 4.7 mmol/L Normal 3.5-4.9 [facility] Comment on above: Performed By: #### L [id number] ####[facility] ([facility])[address] [place] [address] Sodium [Moles/Vol] 137 mmol/L Low 138.0-146.0 [facility] Comment on above: Performed By: #### L [id number] ####[facility] ([facility])[address] [place] [address] CO2 [Moles/Vol] 24.0 mmol/L Normal 21.0-29.0 [facility] Comment on above: Performed By: #### L [id number] ####[facility] ([facility])[address] [place] [address] Glucose [Mass/Vol] 203 mg/dL High 70-105 [facility] Comment on above: Performed By: #### L [id number] ####[facility] ([facility])[address] [place] [address] HCO3 (Bld) [Moles/Vol] 22.6 mmol/L Low 23.0-28.0 [facility] Comment on above: Performed By: #### L [id number] ####[facility] ([facility])[address] [place] [address] Hematocrit (Bld) [Volume fraction] 26 % Low 38-51 [facility] Comment on above: Performed By: #### L [id number] ####[facility] ([facility])[address] [address] Hemoglobin (Bld) [Mass/Vol] 8.8 g/dL Low 12.0-17.0 [facility] Comment on above: Performed By: #### L [id number] ####[facility] ([facility])[address] [address] POCT BASE EXCESS -2.0 mmol/L Normal -2.0-3.0 [facility] Comment on above: Performed By: #### L [id number] ####[facility] [address] POCT IONIZED CALCIUM 1.06 mmol/L Low 1.12-1.32 [facility] Comment on above: Performed By: #### L [id number] ####[facility] ([facility])[address] [address] POCT PCO2 38.7 mmHg Low 41.0-51.0 [facility] Comment on above: Performed By: #### L [id number] ####[facility] ([facility])[address] [address] POCT PH 7.38 Normal 7.31-7.41 [facility] Comment on above: Performed By: #### L [id number] ####[facility] ([facility])[address] [address] POCT PO2 377 mmHg High 80-105 [facility] Comment on above: Performed By: #### L [id number] ####[facility] ([facility])[address] [address] POCT SO2 100 % High 95-98 [facility] Comment on above: Performed By: #### L [id number] ####[facility] ([facility])[address] [address] Potassium [Moles/Vol] 5.0 mmol/L High 3.5-4.9 [facility] Comment on above: Performed By: #### L [id number] ####[facility] ([facility])[address] [place] [address] Sodium [Moles/Vol] 137 mmol/L Low 138.0-146.0 [facility] Comment on above: Performed By: #### L [id number] ####[facility] ([facility])[address] [place] [address] CO2 [Moles/Vol] 24.0 mmol/L Normal 21.0-29.0 [facility] Comment on above: Performed By: #### L [id number] ####[facility] ([facility])[address] [place] [address] Glucose [Mass/Vol] 193 mg/dL High 70-105 [facility] Comment on above: Performed By: #### L [id number] ####[facility] ([facility])[address] [place] [address] HCO3 (Bld) [Moles/Vol] 23.3 mmol/L Normal 23.0-28.0 [facility] Comment on above: Performed By: #### L [id number] ####[facility] ([facility])[address] [place] [address] Hematocrit (Bld) [Volume fraction] 28 % Low 38-51 [facility] Comment on above: Performed By: #### L [id number] ####[facility] ([facility])[address] [place] [address] Hemoglobin (Bld) [Mass/Vol] 9.5 g/dL Low 12.0-17.0 [facility] Comment on above: Performed By: #### L [id number] ####[facility] ([facility])[address] [place] [address] POCT BASE EXCESS -2.0 mmol/L Normal -2.0-3.0 [facility] Comment on above: Performed By: #### L [id number] ####[facility] ([facility])[address] [address] POCT IONIZED CALCIUM 1.07 mmol/L Low 1.12-1.32 [facility] Comment on above: Performed By: #### L [id number] ####[facility] ([facility])[address] [address] POCT PCO2 38.7 mmHg Low 41.0-51.0 [facility] Comment on above: Performed By: #### L [id number] ####[facility] ([facility])[address] [address] POCT PH 7.39 Normal 7.31-7.41 [facility] Comment on above: Performed By: #### L [id number] ####[facility] [address] POCT PO2 367 mmHg High 80-105 [facility] Comment on above: Performed By: #### L [id number] ####[facility] ([facility] [address] POCT SO2 100 % High 95-98 [facility] Comment on above: Performed By: #### L [id number] ####[facility] ([facility], [place] [address] Potassium [Moles/Vol] 5.6 mmol/L High 3.5-4.9 [facility] Comment on above: Performed By: #### L [id number] ####[facility] ([facility])[address], [place] [address] Sodium [Moles/Vol] 138 mmol/L Normal 138.0-146.0 [facility] Comment on above: Performed By: #### L [id number] ####[facility] ([facility])[address], [place] [address] CO2 [Moles/Vol] 25.0 mmol/L Normal 21.0-29.0 [facility] Comment on above: Performed By: #### L [id number] ####[facility] ([facility])[address] [place] [address] Glucose [Mass/Vol] 165 mg/dL High 70-105 [facility] Comment on above: Performed By: #### L [id number] ####[facility] ([facility]ER)[address] [place] [address] HCO3 (Bld) [Moles/Vol] 23.5 mmol/L Normal 23.0-28.0 [facility] Comment on above: Performed By: #### L [id number] ####[facility] ([facility])[address] [place] [address] Hematocrit (Bld) [Volume fraction] 27 % Low 38-51 [facility] Comment on above: Performed By: #### L [id number] ####[facility] ([facility])[address] [place] [address] Hemoglobin (Bld) [Mass/Vol] 9.2 g/dL Low 12.0-17.0 [facility] Comment on above: Performed By: #### L [id number] ####[facility] ([facility])[address] [place] [address] POCT BASE EXCESS -1.0 mmol/L Normal -2.0-3.0 [facility] Comment on above: Performed By: #### L [id number] ####[facility] ([facility])[address] [place] [address] POCT IONIZED CALCIUM 1.08 mmol/L Low 1.12-1.32 [facility] Comment on above: Performed By: #### L [id number] ####[facility] ([facility])[address] [place] [address] POCT PCO2 38.4 mmHg Low 41.0-51.0 [facility] Comment on above: Performed By: #### L [id number] ####[facility] ([facility])[address] [place] [address] POCT PH 7.39 Normal 7.31-7.41 [facility] Comment on above: Performed By: #### L [id number] ####[facility] ([facility])[address] [place] [address] POCT PO2 387 mmHg High 80-105 [facility] Comment on above: Performed By: #### L [id number] ####[facility] ([facility])[address] [place] [address] POCT SO2 100 % High 95-98 [facility] Comment on above: Performed By: #### L [id number] ####[facility] ([facility])[address] [place] [address] Potassium [Moles/Vol] 5.9 mmol/L High 3.5-4.9 [facility] Comment on above: Performed By: #### L [id number] ####[facility] ([facility])[address] [place] [address] Sodium [Moles/Vol] 138 mmol/L Normal 138.0-146.0 [facility] Comment on above: Performed By: #### L [id number] ####[facility] ([facility])[address] [place] [address] CO2 [Moles/Vol] 26.0 mmol/L Normal 21.0-29.0 [facility] Comment on above: Performed By: #### L [id number] ####[facility] ([facility])[address] [place] [address] Glucose [Mass/Vol] 142 mg/dL High 70-105 [facility] Comment on above: Performed By: #### L [id number] ####[facility] ([facility])[address] [place] [address] HCO3 (Bld) [Moles/Vol] 24.5 mmol/L Normal 23.0-28.0 [facility] Comment on above: Performed By: #### L [id number] ####[facility] ([facility])[address] [place] [address] Hematocrit (Bld) [Volume fraction] 24 % Low 38-51 [facility] Comment on above: Performed By: #### L [id number] ####[facility] ([facility])[address] [address] Hemoglobin (Bld) [Mass/Vol] 8.2 g/dL Low 12.0-17.0 [facility] Comment on above: Performed By: #### L [id number] ####[facility] ([facility])[address] [address] POCT BASE EXCESS -1.0 mmol/L Normal -2.0-3.0 [facility] Comment on above: Performed By: #### L [id number] ####[facility] ([facility])[address] [address] POCT IONIZED CALCIUM 0.99 mmol/L Low 1.12-1.32 [facility] Comment on above: Performed By: #### L [id number] ####[facility] ([facility])[address] [address] POCT PCO2 44.6 mmHg Normal 41.0-51.0 [facility] Comment on above: Performed By: #### L [id number] ####[facility] ([facility])[address] [address] POCT PH 7.35 Normal 7.31-7.41 [facility] Comment on above: Performed By: #### L [id number] ####[facility] ([facility])[address] [address] POCT PO2 462 mmHg High 80-105 [facility] Comment on above: Performed By: #### L [id number] ####[facility] ([facility])[address] [address] POCT SO2 100 % High 95-98 [facility] Comment on above: Performed By: #### L [id number] ####[facility] ([facility])[address] [address] Potassium [Moles/Vol] 6.2 mmol/L Critically high 3.5-4.9 [facility] Comment on above: Performed By: #### L [id number] ####[facility] ([facility])[address] [place] [address] Sodium [Moles/Vol] 136 mmol/L Low 138.0-146.0 [facility] Comment on above: Performed By: #### L [id number] ####[facility] (BEAKER)[address] [place] [address] CO2 [Moles/Vol] 24.0 mmol/L Normal 21.0-29.0 [facility] Comment on above: Performed By: #### L [id number] ####[facility] (BEAKER)[address] [place] [address] Glucose [Mass/Vol] 151 mg/dL High 70-105 [facility] Comment on above: Performed By: #### L [id number] ####[facility] (BEAKER)[address] [place] [address] HCO3 (Bld) [Moles/Vol] 22.6 mmol/L Low 23.0-28.0 [facility] Comment on above: Performed By: #### L [id number] ####[facility] (BEAKER)[address] [place] [address] Hematocrit (Bld) [Volume fraction] 38 % Normal 38-51 [facility] Comment on above: Performed By: #### L [id number] ####[facility] (BEAKER)[address] [place] [address] Hemoglobin (Bld) [Mass/Vol] 12.9 g/dL Normal 12.0-17.0 [facility] Comment on above: Performed By: #### L [id number] ####[facility] (BEAKER)[address] [place] [address] POCT BASE EXCESS -4.0 mmol/L Low -2.0-3.0 [facility] Comment on above: Performed By: #### L [id number] ####[facility] (BEAKER)[address] [address] POCT IONIZED CALCIUM 1.25 mmol/L Normal 1.12-1.32 [facility] Comment on above: Performed By: #### L [id number] ####[facility] (BEAKER)[address] [address] POCT PCO2 47.5 mmHg Normal 41.0-51.0 [facility] Comment on above: Performed By: #### L [id number] ####[facility] (BEAKER)[address] [address] POCT PH 7.29 Low 7.31-7.41 [facility] Comment on above: Performed By: #### L [id number] ####[facility] [address] POCT PO2 336 mmHg High 80-105 [facility] Comment on above: Performed By: #### L [id number] ####[facility] [address] POCT SO2 100 % High 95-98 [facility] Comment on above: Performed By: #### L [id number] ####[facility] (BEAKER)[address] [address] Potassium [Moles/Vol] 4.4 mmol/L Normal 3.5-4.9 [facility] Comment on above: Performed By: #### L [id number] ####[facility] (BEAKER)[address] [address] Sodium [Moles/Vol] 139 mmol/L Normal 138.0-146.0 [facility] Comment on above: Performed By: #### L [id number] ####[facility] (BEAKER)[address] [address] CO2 [Moles/Vol] 23.0 mmol/L Normal 21.0-29.0 [facility] Comment on above: Performed By: #### L [id number] ####[facility] (BEAKER)[address] [place] [address] Glucose [Mass/Vol] 123 mg/dL High 70-105 [facility] Comment on above: Performed By: #### L [id number] ####[facility] (BEAKER)[address] [place] [address] HCO3 (Bld) [Moles/Vol] 22.1 mmol/L Low 23.0-28.0 [facility] Comment on above: Performed By: #### L [id number] ####[facility] (BEAKER)[address] [place] [address] Hematocrit (Bld) [Volume fraction] 38 % Normal 38-51 [facility] Comment on above: Performed By: #### L [id number] ####[facility] (BEAKER)[address] [place] [address] Hemoglobin (Bld) [Mass/Vol] 12.9 g/dL Normal 12.0-17.0 [facility] Comment on above: Performed By: #### L [id number] ####[facility] ([facility] [place] [address] POCT BASE EXCESS -3.0 mmol/L Low -2.0-3.0 [facility] Comment on above: Performed By: #### L [id number] ####[facility] (BEAKER)[address] [place] [address] POCT IONIZED CALCIUM 1.25 mmol/L Normal 1.12-1.32 [facility] Comment on above: Performed By: #### L [id number] ####[facility] (BEAKER)[address] [place] [address] POCT PCO2 39.3 mmHg Low 41.0-51.0 [facility] Comment on above: Performed By: #### L [id number] ####[facility] (BEAKER)[address] [place] [address] POCT PH 7.36 Normal 7.31-7.41 [facility] Comment on above: Performed By: #### L [id number] ####[facility] (BEAKER)[address] [place] [address] POCT PO2 412 mmHg High 80-105 [facility] Comment on above: Performed By: #### L [id number] ####[facility] (BEAKER)[address] [place] [address] POCT SO2 100 % High 95-98 [facility] Comment on above: Performed By: #### L [id number] ####[facility] ([facility])[address] [place] [address] Potassium [Moles/Vol] 3.8 mmol/L Normal 3.5-4.9 [facility] Comment on above: Performed By: #### L [id number] ####[facility] ([facility])[address] [place] [address] Sodium [Moles/Vol] 140 mmol/L Normal 138.0-146.0 [facility] Comment on above: Performed By: #### L [id number] ####[facility] ([facility])[address] [place] [address] PROTIME-INRon 04-22-2023 INR IN PPP BY COAGULATION ASSAY 1.60 High 0.90-1.10 [facility] Comment on above: Result Comment: ACCC P [...] CHEST 1995;108:231S-246S. Performed By: #### L [id number] ####[facility] ([employer])[address] [place] [address] PROTHROMBIN TIME (PT) IN PPP BY COAGULATION ASSAY 19.1 Seconds High 12.3-14.8 [facility] Comment on above: Performed By: #### L [id number] ####[facility] (BEAKER)[address] [place] [address] INR IN PPP BY COAGULATION ASSAY 1.72 High 0.90-1.10 [facility] Comment on above: Result Comment: ACCC P [...] CHEST 1995;108:231S-246S. Performed By: #### L [id number] ####[facility] ([employer])[address] [place] [address] PROTHROMBIN TIME (PT) IN PPP BY COAGULATION ASSAY 20.2 Seconds High 12.3-14.8 [facility] Comment on above: Performed By: #### L [id number] ####[facility] (BEAKER)[address] [place] [address] INR IN PPP BY COAGULATION ASSAY 2.00 High 0.90-1.10 [facility] Comment on above: Order Comment: Pre-o p diagnosis:NSTEMI (non-ST elevated myocardial infarction) (CMS/HCC) [I21.4]Acute non-ST segment elevation myocardial infarction (CMS/HCC) [I21.4]Coronary artery disease, unspecified vessel or lesion type, unspecified whether angina present, unspecified whether [place] or transplanted heart [I25.10] Result Comment: ACCC [...] CHEST 1995;108:231S-246S. Performed By: #### L [id number] ####[facility] (BEAKER)[address] [place] [address] PROTHROMBIN TIME (PT) IN PPP BY COAGULATION ASSAY 22.8 Seconds High 12.3-14.8 [facility] Comment on above: Order Comment: Pre-o p diagnosis:NSTEMI (non-ST elevated myocardial infarction) (CMS/HCC) [I21.4]Acute non-ST segment elevation myocardial infarction (CMS/HCC) [I21.4]Coronary artery disease, unspecified vessel or lesion type, unspecified whether angina present, unspecified whether [place] or transplanted heart [I25.10] Performed By: #### L [id number] ####[facility] ([facility] [place] [address] 36on 04-21-2023 36 Called patient and l eft voicemail. Updated NPO after midnight and not to take any medications in the AM. Surgery scheduled for 0730am. Normal [facility] ANESon 04-21-2023 ANES Normal [facility] Telephoneon 04-21-2023 Telephone [id number] Gui Ortiz 1955 M Date Provider Department [facility] 04/21/2023 [facility] [place] [facility] Family History Family history unknown: Yes [facility] APTTon 04-09-2023 ACTIVATED PARTIAL THROMBOPLASTIN TIME IN PPP BY COAGULATION ASSAY 34.7 Seconds Normal 25.0-35.0 [facility] Comment on above: Result Comment: Clin ical significance of the APTT is questionable in the presence of heparin. Performed By: #### L [id number] ####[facility] ([facility])[address] [place] [address] BASIC METABOLIC PANELon 03-18 Anion gap [Moles/Vol] 11 mmol/L Normal 7-20 [facility] Comment on above: Performed By: #### L [id number] ####[facility] ([facility])[address] [place] [address] Calcium [Mass/Vol] 9.8 mg/dL Normal 8.6-10.3 [facility] Comment on above: Performed By: #### L [id number] ####[facility] (BEAKER)[address] [facility] [place] [address] Chloride [Moles/Vol] 105 mmol/L Normal 98-107 [facility] Comment on above: Performed By: #### L [id number] ####[facility] (BEAKER)[address] [place] [address] CO2 [Moles/Vol] 25 mmol/L Normal 21-31 [facility] Comment on above: Performed By: #### L [id number] ####[facility] ([facility])[address] [place] [address] Creatinine [Mass/Vol] 0.91 mg/dL Normal 0.70-1.30 [facility] Comment on above: Performed By: #### L [id number] ####[facility] ([facility])[address] [place] [address] GLOMERULAR FILTRATION RATE ML/MIN/1.73 SQ M.PREDICTED 91.2 mL/min/1.73m*2 Normal >60.0 [facility] Comment on above: Result Comment: The [facility]???s estimated glomerular filtration rate (eGFR) will no [...] of individuals. Performed By: #### L [id number] ####[facility] ([facility])[address] [place] [address] Glucose [Mass/Vol] 105 mg/dL High 70-100 [facility] Comment on above: Performed By: #### L [id number] ####[facility] ([facility])[address] [place] [address] Potassium [Moles/Vol] 3.9 mmol/L Normal 3.5-5.1 [facility] Comment on above: Performed By: #### L [id number] ####[facility] ([facility])[address] [place] [address] Sodium [Moles/Vol] 137 mmol/L Normal 136-145 [facility] Comment on above: Performed By: #### L [id number] ####[facility] ([facility])[address] [place] [address] Urea nitrogen [Mass/Vol] 15 mg/dL Normal 7-25 [facility] Comment on above: Performed By: #### L [id number] ####[facility] ([facility] [place] [address] UREA NITROGEN/CREATININ E (MASS RATIO) IN SER/PLAS 16.5 Normal [facility] Comment on above: Performed By: #### L [id number] ####[facility] ([facility])[address] [place] [address] CBC WITH AUTO DIFFERENTIALon 04-09-2023 Basophils (Bld) [#/Vol] 0.05 10*3/uL Normal 0.00-0.20 [facility] Comment on above: Performed By: #### L [id number] ####[facility] ([facility] [place] [address] Basophils/100 WBC (Bld) 0.8 % Normal 0.0-1.0 [facility] Comment on above: Performed By: #### L [id number] ####[facility] ([facility] [place] [address] Eosinophils (Bld) [#/Vol] 0.09 10*3/uL Normal 0.00-0.50 [facility] Comment on above: Performed By: #### L [id number] ####[facility] ([facility] [place] [address] Eosinophils/100 WBC (Bld) 1.4 % Normal 0.0-6.0 [facility] Comment on above: Performed By: #### L [id number] ####[facility] ([facility] [place] [address] Erythrocyte distribution width (RBC) [Ratio] 13.1 % Normal 11.5-15.0 [facility] Comment on above: Performed By: #### L [id number] ####[facility] (BEAKER)[address] [place] [address] ERYTHROCYTE MEAN CORPUSCULAR HEMOGLOBIN CONCENTRATION (G/DL) BY AUTOMATED 33.3 g/dL Normal 32.0-35.0 [facility] Comment on above: Performed By: #### L [id number] ####[facility] (BEAKER)[address] [place] [address] Hematocrit (Bld) [Volume fraction] 43.0 % Normal 39.0-55.0 [facility] Comment on above: Performed By: #### L [id number] ####[facility] ([facility] [place] [address] Hemoglobin (Bld) [Mass/Vol] 14.3 g/dL Normal 13.0-17.0 [facility] Comment on above: Performed By: #### L [id number] ####[facility] ([facility])[address] [place] [address] Immature granulocytes (Bld) [#/Vol] 0.03 10*3/uL Normal 0.00-0.20 [facility] Comment on above: Performed By: #### L [id number] ####[facility] ([facility])[address] [place] [address] Immature granulocytes/100 WBC (Bld) 0.5 % Normal 0.0-1.0 [facility] Comment on above: Performed By: #### L [id number] ####[facility] (BEAKER)[address] [place] [address] Lymphocytes (Bld) [#/Vol] 2.46 10*3/uL Normal 1.20-4.00 [facility] Comment on above: Performed By: #### L [id number] ####[facility] (BEAKER)[address] [place] [address] Lymphocytes/100 WBC (Bld) 38.2 % Normal 20.0-45.0 [facility] Comment on above: Performed By: #### L [id number] ####[facility] (BEAKER)[address] [place] [address] MCH (RBC) [Entitic mass] 30.4 pg Normal 27.0-33.0 [facility] Comment on above: Performed By: #### L [id number] ####[facility] (BEAKER)[address] [place] [address] MCV (RBC) [Entitic vol] 91.3 fL Normal 82.0-98.0 [facility] Comment on above: Performed By: #### L [id number] ####[facility] (BEAKER)[address] [place] [address] Monocytes (Bld) [#/Vol] 0.51 10*3/uL Normal 0.10-1.00 [facility] Comment on above: Performed By: #### L [id number] ####[facility] (BEAKER)[address] [place] [address] Monocytes/100 WBC (Bld) 7.9 % Normal 5.0-12.0 [facility] Comment on above: Performed By: #### L [id number] ####[facility] (BEAKER)[address] [place] [address] Neutrophils (Bld) [#/Vol] 3.30 10*3/uL Normal 1.60-7.60 [facility] Comment on above: Performed By: #### L [id number] ####[facility] (BEAKER)[address] [place] [address] Neutrophils/100 WBC (Bld) 51.2 % Normal 40.0-72.0 [facility] Comment on above: Performed By: #### L [id number] ####[facility] (BEAKER)[address] [place] [address] NRBC (PER 100 WBCS) BY AUTOMATED COUNT 0.0 % Normal 0 [facility] Comment on above: Performed By: #### L [id number] ####[facility] (BEAKER)[address] [place] [address] PLATELETS (10*3/UL) IN BLOOD AUTOMATED COUNT 281 10*3/uL Normal 150-400 [facility] Comment on above: Performed By: #### L [id number] ####[facility] (BEAKER)[address] [place] [address] RBC (Bld) [#/Vol] 4.71 10*6/uL Normal 4.20-5.70 [facility] Comment on above: Performed By: #### L [id number] ####[facility] (BEAKER)[address] [address] WBC (Bld) [#/Vol] 6.44 10*3/uL Normal 4.00-10.60 [facility] Comment on above: Performed By: #### L [id number] ####[facility] ([facility] [address] ETHANOLon 04-09-2023 ETHANOL (MG/DL) IN SER/PLAS <10 Normal [facility] Comment on above: Result Comment: No E thanol detected Performed By: #### L [id number] ####[facility] ([facility] [address] ETHANOL CALCULATED (%) Normal [facility] Comment on above: Performed By: #### L [id number] ####[facility] ([facility] [address] Follow-Upon 04-09-2023 Follow-Up Normal [facility] HEMOGLOBIN A1Con 04-09-2023 Glucose [Mass/Vol] 128 mg/dL Normal [facility] Comment on above: Performed By: #### L [id number] ####[facility] ([facility] [address] HbA1c (Bld) [Mass fraction] 6.1 % High 4.0-6.0 [facility] Comment on above: Performed By: #### L [id number] ####[facility] (BEAKER)[address] [address] HPon 04-09-2023 HP Normal [facility] Labon 04-09-2023 Lab [id number] Gui Ortiz 1955 M Date Provider Department [facility] 04/09/2023 2245-[facility] OPD LAB RESOURCE [facility] OPD [facility] C Family History Family history unknown: Yes Normal [facility] MRSA/MSSA DNA NASALon 2022 MRSA DNA Negative Normal Negative [facility] Comment on above: Order Comment: Testi ng [...] preclude nasal colonization. Performed By: #### L [id number] ####[facility] (BEAKER)[address] [place] [address] MSSA DNA Negative Normal Negative [facility] Comment on above: Order Comment: Testi ng [...] preclude nasal colonization. Performed By: #### L [id number] ####[facility] (BEAKER)[address] [place] [address] Orders Onlyon 04-09-2023 Orders Only [id number] Gui Ortiz 1955 M Date Provider Department [facility] 04/09/2023 ALEJO ANDRE HVCVASENDAlicia [facility] Family History Family history unknown: Yes Normal [facility] PROTIME-INRon 04-09-2023 INR IN PPP BY COAGULATION ASSAY 1.00 Normal 0.90-1.10 [facility] Comment on above: Result Comment: ACCC P [...] CHEST 1995;108:231S-246S. Performed By: #### L [id number] ####[facility] ([facility])[address] [place] [address] PROTHROMBIN TIME (PT) IN PPP BY COAGULATION ASSAY 13.2 Seconds Normal 12.3-14.8 [facility] Comment on above: Performed By: #### L [id number] ####[facility] ([facility])[address] [place] [address] TOXICOLOGY PANEL URINEon AMPHETAMINE+METHAM PHETAMINE SCREEN (PRESENCE) IN URINE Negative Normal Negative [facility] Comment on above: Performed By: #### L [id number] ####[facility] ([facility])[address] [place] [address] BARBITURATES PRESENCE IN URINE BY SCREEN METHOD Negative Normal Negative [facility] Comment on above: Performed By: #### L [id number] ####[facility] ([facility])[address] [place] [address] Benzodiazepines Ql (U) Negative Normal Negative [facility] Comment on above: Performed By: #### L [id number] ####[facility] ([facility])[address] [place] [address] CANNABINOID (PRESENCE) IN URINE BY SCREEN METHOD Negative Normal Negative [facility] Comment on above: Performed By: #### L [id number] ####[facility] ([facility])[address] [place] [address] Cocaine Ql (U) Negative Normal Negative [facility] Comment on above: Performed By: #### L [id number] ####[facility] ([facility])[address] [place] [address] METHADONE (PRESENCE) IN URINE BY SCREEN METHOD Normal [facility] Comment on above: Result Comment: Meth adone being sent out. Results to follow. Performed By: #### L [id number] ####[facility] ([facility])[address] [place] [address] OPIATES (PRESENCE) IN URINE BY SCREEN METHOD Negative Normal Negative [facility] Comment on above: Performed By: #### L [id number] ####[facility] ([facility])[address] [place] [address] PHENCYCLIDINE PRESENCE IN URINE BY SCREEN METHOD Negative Normal Negative [facility] Comment on above: Performed By: #### L [id number] ####[facility] ([facility])[address] [place] [address] Propoxyphene Screen Ql (U) Negative Normal Negative [facility] Comment on above: Performed By: #### L [id number] ####[facility] ([facility])[address] [place] [address] TRICYCLIC ANTIDEPRESSANTS (PRESENCE) IN URINE Negative Normal Negative [facility] Comment on above: Performed By: #### L [id number] ####[facility] ([facility])[address] [place] [address] TYPE AND SCREENon 04-09-2023 AB SCREEN Negative Normal [facility] Comment on above: Performed By: #### L [id number] ####[facility] BLOOD BANK, ABO group Nom (Bld) O Normal [facility] Comment on above: Performed By: #### L [id number] ####[facility] BLOOD BANK, RH TYPE IN BLOOD Positive Normal [facility] Comment on above: Performed By: #### L [id number] ####[facility] BLOOD BANK, URINALYSISon 04-09-2023 BILIRUBIN, TOTAL PRESENCE IN URINE Negative Normal Negative [facility] Comment on above: Performed By: #### L [id number] ####[facility] ([facility])[address] [place] [address] Clarity (U) Clear Normal Clear [facility] Comment on above: Performed By: #### L [id number] ####[facility] ([facility])[address] [place] [address] Color (U) Yellow Normal Yellow [facility] Comment on above: Performed By: #### L [id number] ####[facility] ([facility])[address] [place] [address] Glucose (U) [Mass/Vol] Negative Normal Negative [facility] Comment on above: Performed By: #### L [id number] ####[facility] ([facility])[address] [place] [address] HEMOGLOBIN PRESENCE IN URINE Small Abnormal Negative [facility] Comment on above: Performed By: #### L [id number] ####[facility] ([facility])[address] [place] [address] Ketones Ql (U) Negative Normal Negative [facility] Comment on above: Performed By: #### L [id number] ####[facility] ([facility])[address] [place] [address] LEUKOCYTE ESTERASE PRESENCE IN URINE BY TEST STRIP Negative Normal Negative [facility] Comment on above: Performed By: #### L [id number] ####[facility] ([facility])[address] [place] [address] NITRITE PRESENCE IN URINE Negative Normal Negative [facility] Comment on above: Performed By: #### L [id number] ####[facility] ([facility])[address] [place] [address] pH (U) 6.0 [pH] Normal 5.0-8.0 [facility] Comment on above: Performed By: #### L [id number] ####[facility] ([facility] [place] [address] Protein (U) [Mass/Vol] Negative Normal Negative [facility] Comment on above: Performed By: #### L [id number] ####[facility] ([facility])[address] [place] [address] Specific gravity (U) [Rel density] 1.012 Low 1.015-1.020 [facility] Comment on above: Performed By: #### L [id number] ####[facility] ([facility])[address] [place] [address] URINALYSIS MICROSCOPICon CASTS IN URINE Normal [facility] Comment on above: Performed By: #### L [id number] ####[facility] ([facility])[address] [place] [address] CRYSTALS IN URINE Normal [facility] Comment on above: Performed By: #### L [id number] ####[facility] ([facility])[address] [place] [address] RBC (#/HPF) IN URINE SEDIMENT 3-5 Abnormal None Seen [facility] Comment on above: Performed By: #### L [id number] ####[facility] ([facility])[address] [place] [address] SQUAMOUS EPITHELIAL CELLS (#/HPF) IN URINE SEDIMENT None Seen Normal None Seen, Occasional [facility] Comment on above: Performed By: #### L [id number] ####[facility] ([facility])[address] [place] [address] WBC (LEUKOCYTE) (#/HPF) IN URINE SEDIMENT None Seen Normal None Seen [facility] Comment on above: Performed By: #### L [id number] ####[facility] ([facility] [place] [address] Documentationon 04-01-2023 Documentation Normal [facility] 30on 03-23-2023 30 Normal [facility] 30 Normal [facility] ANTI-XA (HEPARIN LEVEL)on HEPARIN UNFRACTIONATED (U/ML) IN PPP BY CHROMOGENIC METHOD <0.10 Invalid Interpretation Code 0.3-0.7 [facility] Comment on above: Order Comment: Check anti-Xa level every 6 hours while on heparin infusion, or per protocol. Result Comment: [place] roxaban and Apixaban will interfere with the anti Xa assay used to monitor UFH and LMWH. Performed By: #### L [id number] ####[facility] (BEAKER)[address] [place] [address] BASIC METABOLIC PANELon 10-0 Anion gap [Moles/Vol] 11 mmol/L Normal 7-20 [facility] Comment on above: Performed By: #### L [id number] ####[facility] ([facility] [place] [address] Calcium [Mass/Vol] 9.1 mg/dL Normal 8.6-10.3 [facility] Comment on above: Performed By: #### L [id number] ####[facility] ([facility] [place] [address] Chloride [Moles/Vol] 107 mmol/L Normal 98-107 [facility] Comment on above: Performed By: #### L [id number] ####[facility] ([facility] [place] [address] CO2 [Moles/Vol] 23 mmol/L Normal 21-31 [facility] Comment on above: Performed By: #### L [id number] ####[facility] (BEAKER)[address] [place] [address] Creatinine [Mass/Vol] 0.85 mg/dL Normal 0.70-1.30 [facility] Comment on above: Performed By: #### L [id number] ####[facility] ([facility])[address] [place] [address] GLOMERULAR FILTRATION RATE ML/MIN/1.73 SQ M.PREDICTED 94.1 mL/min/1.73m*2 Normal >60.0 [facility] Comment on above: Result Comment: [facility]???s estimated glomerular filtration rate (eGFR) will no [...] of individuals. Performed By: #### L [id number] ####[facility] ([facility])[address] [place] [address] Glucose [Mass/Vol] 103 mg/dL High 70-100 [facility] Comment on above: Performed By: #### L [id number] ####[facility] ([facility])[address] [place] [address] Potassium [Moles/Vol] 3.8 mmol/L Normal 3.5-5.1 [facility] Comment on above: Performed By: #### L [id number] ####[facility] ([facility])[address] [address] Sodium [Moles/Vol] 137 mmol/L Normal 136-145 [facility] Comment on above: Performed By: #### L [id number] ####[facility] ([facility])[address] [place] [address] Urea nitrogen [Mass/Vol] 12 mg/dL Normal 7-25 [facility] Comment on above: Performed By: #### L [id number] ####[facility] ([facility])[address] [place] [address] UREA NITROGEN/CREATININ E (MASS RATIO) IN SER/PLAS 14.1 Normal [facility] Comment on above: Performed By: #### L [id number] ####[facility] ([facility])[address] [place] [address] CBCon 03-23-2023 Erythrocyte distribution width (RBC) [Ratio] 13.0 % Normal 11.5-15.0 [facility] Comment on above: Performed By: #### L [id number] ####[facility] ([facility])[address] [address] ERYTHROCYTE MEAN CORPUSCULAR HEMOGLOBIN CONCENTRATION (G/DL) BY AUTOMATED 34.5 g/dL Normal 32.0-35.0 [facility] Comment on above: Performed By: #### L [id number] ####[facility] ([facility])[address] [address] Hematocrit (Bld) [Volume fraction] 41.4 % Normal 39.0-55.0 [facility] Comment on above: Performed By: #### L [id number] ####[facility] LAB (BEAKER)[address] [address] Hemoglobin (Bld) [Mass/Vol] 14.3 g/dL Normal 13.0-17.0 [facility] Comment on above: Performed By: #### L [id number] ####[facility] LAB (BEAKER)[address] [place] [address] MCH (RBC) [Entitic mass] 30.4 pg Normal 27.0-33.0 [facility] Comment on above: Performed By: #### L [id number] ####[facility] LAB (BEAKER)[address] [place] [address] MCV (RBC) [Entitic vol] 87.9 fL Normal 82.0-98.0 [facility] Comment on above: Performed By: #### L [id number] ####[facility] LAB (BEAKER)[address] [place] [address] PLATELETS (10*3/UL) IN BLOOD AUTOMATED COUNT 243 10*3/uL Normal 150-400 [facility] Comment on above: Performed By: #### L [id number] ####[facility] LAB (BEAKER)[address] [place] [address] RBC (Bld) [#/Vol] 4.71 10*6/uL Normal 4.20-5.70 [facility] Comment on above: Performed By: #### L [id number] ####[facility] LAB (BEAKER)[address] [place] [address] WBC (Bld) [#/Vol] 6.84 10*3/uL Normal 4.00-10.60 [facility] Comment on above: Performed By: #### L [id number] ####[facility] LAB ([facility])[address] [place] [address] CT HEAD WO IV CONTRASTon CT HEAD WO IV CONTRAST Normal [facility] CTA CHEST W AND/OR WO IV CON TRASTon 03-23-2023 CTA CHEST W AND/OR WO IV CONTRAST Normal [facility] DSon 03-23-2023 DS Normal [facility] 30on 03-22-2023 30 Normal [facility] 30 Normal [facility] 30 Normal [facility] ANESon 03-22-2023 ANES Normal [facility] APTTon 03-22-2023 ACTIVATED PARTIAL THROMBOPLASTIN TIME IN PPP BY COAGULATION ASSAY 36.2 Seconds High 25.0-35.0 [facility] Comment on above: Order Comment: Basel ine aPTT before initiating heparin infusion. Result Comment: Clin ical significance of the APTT is questionable in the presence of heparin. Performed By: #### L [id number] ####[facility] LAB ([facility])[address] [place] [address] BASIC METABOLIC PANELon 10-0 Anion gap [Moles/Vol] 9 mmol/L Normal 7-20 [facility] Comment on above: Performed By: #### L [id number] ####[facility] [place] [address] Calcium [Mass/Vol] 8.9 mg/dL Normal 8.6-10.3 [facility] Comment on above: Performed By: #### L [id number] ####[facility] LAB ([facility])[address] [place] [address] Chloride [Moles/Vol] 111 mmol/L High 98-107 [facility] Comment on above: Performed By: #### L [id number] ####[facility] LAB (BEAKER)[address] [place] [address] CO2 [Moles/Vol] 22 mmol/L Normal 21-31 [facility] Comment on above: Performed By: #### L [id number] ####[facility] ([facility] [place] [address] Creatinine [Mass/Vol] 0.79 mg/dL Normal 0.70-1.30 [facility] Comment on above: Performed By: #### L [id number] ####[facility] ([facility] [place] [address] GLOMERULAR FILTRATION RATE ML/MIN/1.73 SQ M.PREDICTED 96.2 mL/min/1.73m*2 Normal >60.0 [facility] Comment on above: Result Comment: [facility]???s estimated glomerular filtration rate (eGFR) will no [...] of individuals. Performed By: #### L [id number] ####[facility] ([facility] [place] [address] Glucose [Mass/Vol] 112 mg/dL High 70-100 [facility] Comment on above: Performed By: #### L [id number] ####[facility] ([facility] [place] [address] Potassium [Moles/Vol] 3.9 mmol/L Normal 3.5-5.1 [facility] Comment on above: Performed By: #### L [id number] ####[facility] LAB (BEAKER)[address] [place] [address] Sodium [Moles/Vol] 138 mmol/L Normal 136-145 [facility] Comment on above: Performed By: #### L [id number] ####[facility] LAB (BEAKER)[address] [place] [address] Urea nitrogen [Mass/Vol] 12 mg/dL Normal 7-25 [facility] Comment on above: Performed By: #### L [id number] ####[facility] LAB (BEAKER)[address] [place] [address] UREA NITROGEN/CREATININ E (MASS RATIO) IN SER/PLAS 15.2 Normal [facility] Comment on above: Performed By: #### L [id number] ####[facility] LAB (BEAKER)[address] [place] [address] CBCon 03-22-2023 Erythrocyte distribution width (RBC) [Ratio] 13.2 % Normal 11.5-15.0 [facility] Comment on above: Performed By: #### L [id number] ####[facility] ([facility] [place] [address] ERYTHROCYTE MEAN CORPUSCULAR HEMOGLOBIN CONCENTRATION (G/DL) BY AUTOMATED 33.7 g/dL Normal 32.0-35.0 [facility] Comment on above: Performed By: #### L [id number] ####[facility] ([facility] [place] [address] Hematocrit (Bld) [Volume fraction] 40.3 % Normal 39.0-55.0 [facility] Comment on above: Performed By: #### L [id number] ####[facility] LAB (BEAKER)[address] [address] Hemoglobin (Bld) [Mass/Vol] 13.6 g/dL Normal 13.0-17.0 [facility] Comment on above: Performed By: #### L [id number] ####[facility] LAB (BEAKER)[address] [place] [address] MCH (RBC) [Entitic mass] 30.5 pg Normal 27.0-33.0 [facility] Comment on above: Performed By: #### L [id number] ####[facility] ([facility] [place] [address] MCV (RBC) [Entitic vol] 90.4 fL Normal 82.0-98.0 [facility] Comment on above: Performed By: #### L [id number] ####[facility] ([facility])[address] [place] [address] PLATELETS (10*3/UL) IN BLOOD AUTOMATED COUNT 241 10*3/uL Normal 150-400 [facility] Comment on above: Performed By: #### L [id number] ####[facility] ([facility])[address] [place] [address] RBC (Bld) [#/Vol] 4.46 10*6/uL Normal 4.20-5.70 [facility] Comment on above: Performed By: #### L [id number] ####[facility] ([facility])[address] [place] [address] WBC (Bld) [#/Vol] 6.03 10*3/uL Normal 4.00-10.60 [facility] Comment on above: Performed By: #### L [id number] ####[facility] ([facility])[address] [place] [address] CONSULTon 03-22-2023 CONSULT Normal [facility] CONSULT Normal [facility] CT CHEST WO IV CONTRASTon CT CHEST WO IV CONTRAST Normal [facility] HEMOGLOBIN A1Con 03-22-2023 Glucose [Mass/Vol] 126 mg/dL Normal [facility] Comment on above: Performed By: #### L [id number] ####[facility] ([facility])[address] [place] [address] HbA1c (Bld) [Mass fraction] 6.0 % Normal 4.0-6.0 [facility] Comment on above: Performed By: #### L [id number] ####[facility] [place] [address] HPon 03-22-2023 HP H&P reviewed. The laurie putnam was examined and there are no changes to the H&P. Will proceed with coronary angiogram for chest pain and elevated high sensitivity troponin. Normal [facility] LIPID PANELon 03-22-2023 CHOL/HDL 4.9 mg/dL Normal [facility] Comment on above: Performed By: #### L [id number] ####[facility] ([facility] [place] [address] Cholesterol [Mass/Vol] 138 mg/dL Normal 120-200 [facility] Comment on above: Performed By: #### L [id number] ####[facility] ([facility] [place] [address] Magnesium [Mass/Vol] 107 mg/dL Normal 40-149 [facility] Comment on above: Result Comment: TRIG LYCERIDE REFERENCE RANGE:20 YEARS AND OLDER CARDIOVASCULAR RISKLESS THAN 150 mg/dL LOW [id number] TO 199 mg/dL BORDERLINE NFOC260 mg/dL AND GREATER HIGH RISK Performed By: #### L [id number] ####[facility] ([facility] [place] [address] Magnesium [Mass/Vol] 89 mg/dL Normal 0-160 [facility] Comment on above: Performed By: #### L [id number] ####[facility] LAB (BEAKER)[address] [place] [address] Magnesium [Mass/Vol] 28 mg/dL Normal 23-92 [facility] Comment on above: Performed By: #### L [id number] ####[facility] ([facility] [place] [address] NON HDL CHOL. (LDL+VLDL) 110 Normal [facility] Comment on above: Performed By: #### L [id number] ####[facility] LAB (BEAKER)[address] [place] [address] TOTAL VLDL-C 21 mg/dL Normal 0-40 [facility] Comment on above: Performed By: #### L [id number] ####[facility] LAB (BEAKER)[address] [place] [address] MRSA/MSSA DNA NASALon 2022 MRSA DNA Negative Normal Negative [facility] Comment on above: Order Comment: Testi ng [...] preclude nasal colonization. Performed By: #### L [id number] ####[facility] ([facility])[address] [place] [address] MSSA DNA Negative Normal Negative [facility] Comment on above: Order Comment: Testi ng [...] preclude nasal colonization. Performed By: #### L [id number] ####[facility] ([facility])[address] [place] [address] TROPONIN Ion 03-22-2023 Troponin I.cardiac [Mass/Vol] 0.03 ng/mL Normal 0.00-0.04 [facility] Comment on above: Performed By: #### L [id number] ####[facility] ([facility])[address] [place] [address] Troponin I.cardiac [Mass/Vol] 0.04 ng/mL Normal 0.00-0.04 [facility] Comment on above: Performed By: #### L [id number] ####[facility] ([facility])[address] [place] [address] TSH3 REFLEX TO FT4on 023 THYROTROPIN (MIU/L) IN SER/PLAS BY DETECTION LIMIT <= 0.05 MIU/L 2.07 mIU/L Normal 0.34-5.60 [facility] Comment on above: Performed By: #### L [id number] ####[facility] LAB (BEAKER)[address] [place] [address] URINALYSISon 03-22-2023 BILIRUBIN, TOTAL PRESENCE IN URINE Negative Normal Negative [facility] Comment on above: Performed By: #### L [id number] ####[facility] ([facility] [place] [address] Clarity (U) Clear Normal Clear [facility] Comment on above: Performed By: #### L [id number] ####[facility] ([facility])[address] [place] [address] Color (U) Yellow Normal Yellow [facility] Comment on above: Performed By: #### L [id number] ####[facility] ([facility])[address] [place] [address] Glucose (U) [Mass/Vol] Negative Normal Negative [facility] Comment on above: Performed By: #### L [id number] ####[facility] ([facility])[address] [place] [address] HEMOGLOBIN PRESENCE IN URINE Small Abnormal Negative [facility] Comment on above: Performed By: #### L [id number] ####[facility] ([facility])[address] [place] [address] Ketones Ql (U) Negative Normal Negative [facility] Comment on above: Performed By: #### L [id number] ####[facility] ([facility])[address] [place] [address] LEUKOCYTE ESTERASE PRESENCE IN URINE BY TEST STRIP Negative Normal Negative [facility] Comment on above: Performed By: #### L [id number] ####[facility] ([facility])[address] [place] [address] NITRITE PRESENCE IN URINE Negative Normal Negative [facility] Comment on above: Performed By: #### L [id number] ####[facility] ([facility] [place] [address] pH (U) 6.0 [pH] Normal 5.0-8.0 [facility] Comment on above: Performed By: #### L [id number] ####[facility] ([facility] [place] [address] Protein (U) [Mass/Vol] Negative Normal Negative [facility] Comment on above: Performed By: #### L [id number] ####[facility] ([facility] [place] [address] Specific gravity (U) [Rel density] 1.049 High 1.015-1.020 [facility] Comment on above: Performed By: #### L [id number] ####[facility] ([facility] [place] [address] URINALYSIS MICROSCOPICon CASTS IN URINE Normal [facility] Comment on above: Performed By: #### L [id number] ####[facility] ([facility] [place] [address] CRYSTALS IN URINE Normal [facility] Comment on above: Performed By: #### L [id number] ####[facility] ([facility] [place] [address] RBC (#/HPF) IN URINE SEDIMENT 6-10 Abnormal None Seen [facility] Comment on above: Performed By: #### L [id number] ####[facility] LAB (BEAKER)[address] [place] [address] SQUAMOUS EPITHELIAL CELLS (#/HPF) IN URINE SEDIMENT Few Abnormal None Seen, Occasional [facility] Comment on above: Performed By: #### L [id number] ####[facility] LAB (BEAKER)[address] [place] [address] WBC (LEUKOCYTE) (#/HPF) IN URINE SEDIMENT None Seen Normal None Seen [facility] Comment on above: Performed By: #### L [id number] ####[facility] LAB (BEAKER)[address] [place] [address] 30on 03-21-2023 30 Normal [facility] D-DIMER, QUANTITATIVEon 10-0 5-2023 FIBRIN D-DIMER (UG/L FEU) IN PLATELET POOR PLASMA 0.36 mcg/mL FEU Normal 0.27-0.49 [facility] Comment on above: Order Comment: D-Dim er values of less than 0.50 ug/ml (FEU) are considered to be a negative predictor of thrombosis. However, the D-Dimer result should be used in conjunction with pretest probability and should not be used alone to diagnose a thrombotic event. 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 Urology Office/Clinic Noteon 01-29-2023 Urology Office/Clinic [...] ROMERO, ELIZABETH Benedict, URL In 1 year [address] [place] [address] Additional Instructions: w/PSA Patient Education Documentation recorded [...] Protein Urine Dipstick: Negative (01/29/23 14:37:00) Specific Clarinda Urine Dipstick: 1.025 (01/29/23 14:37:00) Urine Appearance Urine Dipstick: Clear (01/29/23 14:37:00) Urine Color Urine Dipstick: Yellow (01/29/23 14:37:00) pH Urine Dips (more content not included)... Normal [facility] Comment on above: Result Comment: Elec [...] by: GARCIA GALLEGOS Date: 2022-08-04 17:12 Normal [facility] CT LUNG CANCER SCREENINGon 0 [...] DAVID EL Date: 2022-07-26 07:42 Normal [facility] INSULINon 07-26-2022 Insulin 4.0 uIU/mL Normal 2.6-24.9 [facility] Comment on above: Performed By: #### I NSULIN #### [facility] [address] [place] [address] Dr. Rehana Martinez CBC AUTO DIFFon 07-25-2022 BASO # 0.0 103/ul Normal 0.0-0.1 [facility] Comment on above: Performed By: #### C BC #### [facility] [address] [place] [address] Dr. Rehana Martinez Basophils/100 WBC (Bld) 0.2 % Normal 0.2-2.0 [facility] Comment on above: Performed By: #### C BC #### [facility] [address] [place] [address] Dr. Rehana Martinez EO # 0.1 103/ul Normal 0.0-0.7 [facility] Comment on above: Performed By: #### C BC #### [facility] [address] [place] [address] Dr. Rehana Martinez Eosinophils/100 WBC (Bld) 0.5 % Critically low 0.9-7.0 [facility] Comment on above: Performed By: #### C BC #### [facility] [address] [place] [address] Dr. Rehana Martinez Erythrocyte distribution width (RBC) [Ratio] 13.6 % Normal 11.0-15.0 [facility] Comment on above: Performed By: #### C BC #### [facility] [address] [place] [address] Dr. Rehana Martinez Hematocrit (Bld) [Volume fraction] 45.6 % Normal 42.0-54.0 [facility] Comment on above: Performed By: #### C BC #### [facility] [address] [place] [address] Dr. Rehana Martinez Hemoglobin (Bld) [Mass/Vol] 15.1 g/dL Normal 14.0-18.0 [facility] Comment on above: Performed By: #### C BC #### [facility] [address] [place] [address] Dr. Rehana Martinez IG # 0.04 10e3/ul Critically high 0.00-0.03 [facility] Comment on above: Performed By: #### C BC #### [facility] [address] [place] [address] Dr. Rehana Martinez IG % 0.4 % Normal 0.0-0.5 [facility] Comment on above: Performed By: #### C BC #### [facility] [address] [place] [address] Dr. Rehana Martinez LYMPH # 1.7 103/ul Normal 1.2-3.8 [facility] Comment on above: Performed By: #### C BC #### [facility] [address] [place] [address] Dr. Rehana Martinez Lymphocytes/100 WBC (Bld) 17.9 % Critically low 20.5-60.0 [facility] Comment on above: Performed By: #### C BC #### [facility] [address] [place] [address] Dr. Rehana Martinez MANUAL DIFF REQ NO Normal [facility] Comment on above: Performed By: #### C BC #### [facility] [address] [place] [address] Dr. Rehana Martinez MCH (RBC) [Entitic mass] 30.8 pg Normal 25.9-34.0 [facility] Comment on above: Performed By: #### C BC #### [facility] [address] [place] [address] [address] Rehana Martinez MCHC (RBC) [Mass/Vol] 33.1 g/dL Normal 29.9-35.2 [facility] Comment on above: Performed By: #### C BC #### [facility] [address] [address] [address] Rehana Martinez MCV (RBC) [Entitic vol] 92.9 fL Normal 80.0-94.0 [facility] Comment on above: Performed By: #### C BC #### [facility] [address] [address] [address] Rehana Martinez MONO # 1.1 103/ul Critically high 0.3-0.8 [facility] Comment on above: Performed By: #### C BC #### [facility] [address] [address] [address] Rehana Martinez Monocytes/100 WBC (Bld) 11.2 % Normal 1.7-12.0 [facility] Comment on above: Performed By: #### C BC #### [facility] [address] [address] [address] Rehana Martinez NEUT # 6.7 103/ul Critically high 1.4-6.5 [facility] Comment on above: Performed By: #### C BC #### [facility] [address] [address] [address] Rehana Martinez Neutrophils/100 WBC (Bld) 69.8 % Normal 43.0-75.0 [facility] Comment on above: Performed By: #### C BC #### [facility] [address] [address] [address] Rehana Martinez Platelet mean volume (Bld) [Entitic vol] 8.7 fL Critically low 9.5-13.5 [facility] Comment on above: Performed By: #### C BC #### [facility] [address] [address] [address] Rehana Martinez PLT 226 103/ul Normal 150-450 [facility] Comment on above: Performed By: #### C BC #### [facility] [address] [address] [address] Rehana Martinez RBC 4.91 106/ul Normal 4.70-6.10 [facility] Comment on above: Performed By: #### C BC #### [facility] [address] [address] [address] Rehana Martinez WBC 9.6 103/ul Normal 4.0-11.0 [facility] Comment on above: Performed By: #### C BC #### [facility] [address] [address] [address] Rehana Martinez FREE THYROXINE INDEX T7on FTI 3.37 Normal 1.30-4.50 [facility] Comment on above: Performed By: #### L IPID, CMP, TSH, URIC, T7 ####[facility] [address] [address]Dr. Rehana Martinez T3U 37.0 % Normal 33.0-40.0 [facility] Comment on above: Performed By: #### L IPID, CMP, TSH, URIC, T7 ####[facility] [address] [address]Dr. Rehana Martinez T4 [Mass/Vol] 9.10 ug/dL Normal 4.50-12.10 [facility] Comment on above: Performed By: #### L IPID, CMP, TSH, URIC, T7 ####[facility] [address] [id number]. Rehana Martinez GLYCOHEMOGLOBIN A1Con 2022 ADA RECOMMENDATION SEE BELOW Normal [facility] Comment on above: Result Comment: ADA RECOMMENDED LIMIT 4.0 - 6.0 ADA THERAPEUTIC TARGET < 7.0 ACTION SUGGESTED > 7.0 Performed By: #### A 1C #### [facility] [address] [address] [address] Rehana Martinez Glucose [Mass/Vol] 128 mg/dL Normal [facility] Comment on above: Performed By: #### A 1C #### [facility] [address] [place], [place] [address] Dr. Rehana Martinez HbA1c (Bld) [Mass fraction] 6.1 % Normal 4.5-6.2 [facility] Comment on above: Performed By: #### A 1C #### [facility] [address] [place], [place] [address] Dr. Rehana Martinez LIPID PROFILEon 07-25-2022 CHOL-HDL RATIO NORM SEE BELOW Normal [facility] Comment on above: Result Comment: 3.3 - 4.4 LOW RISK 4.4 - 7.1 AVERAGE RISK 7.1 - 11.0 MODERATE RISK >11.0 HIGH RISK Performed By: #### L IPID, CMP, TSH, URIC, T7 ####[facility] [address] [address]Dr. Rehana Martinez Cholesterol [Mass/Vol] 137 mg/dL Normal <=200 [facility] Comment on above: Performed By: #### L IPID, CMP, TSH, URIC, T7 ####[facility] [address] [address]Dr. Rehana Martinez Cholesterol in HDL [Mass/Vol] 44 mg/dL Normal 40-60 [facility] Comment on above: Performed By: #### L IPID, CMP, TSH, URIC, T7 ####[facility] [address] [address]Dr. Rehana Martinez Cholesterol in LDL [Mass/Vol] 75.6 mg/dL Normal [facility] Comment on above: Performed By: #### L IPID, CMP, TSH, URIC, T7 ####[facility] [address] [address]Dr. Rehana Martinez Cholesterol.total/ Cholesterol in HDL [Mass ratio] 3.1 {ratio} Normal [facility] Comment on above: Performed By: #### L IPID, CMP, TSH, URIC, T7 ####[facility] [address] [address]Dr. Rehana Martinez HDL NORMAL > or = 60 mg/dl - LO W CARDIOVASCULAR RISK <40 mg/dl - HIGH CARDIOVASCULAR RISK Normal [facility] Comment on above: Performed By: #### L IPID, CMP, TSH, URIC, T7 ####[facility] [address] [address]Dr. Rehana Martinez LDL CALC NORMAL SEE BELOW Normal [facility] Comment on above: Result Comment: <100 mg/dl OPTIMAL 100 - 129 mg/dl NEAR OR ABOVE OPTIMAL 130 - 159 mg/dl BORDERLINE HIGH 160 - 189 mg/dl HIGH >190 mg/dl VERY HIGH Performed By: #### L IPID, CMP, TSH, URIC, T7 ####[facility] [address] [address]Dr. Rehana Martinez Triglyceride [Mass/Vol] 87 mg/dL Normal <=150 [facility] Comment on above: Performed By: #### L IPID, CMP, TSH, URIC, T7 ####[facility] [address] [address]Dr. Rehana Martinez VLDL CALC 17.4 mg/dL Normal [facility] Comment on above: Performed By: #### L IPID, CMP, TSH, URIC, T7 ####[facility] [address] [place] [address]Dr. Rehana Martinez PROF 14(COMP METB)on 023 Albumin [Mass/Vol] 3.3 g/dL Critically low 3.4-5.0 [facility] Comment on above: Performed By: #### L IPID, CMP, TSH, URIC, T7 ####[facility] [address] [place] [address]Dr. Rehana Martinez Albumin/Globulin [Mass ratio] 0.9 {ratio} Normal [facility] Comment on above: Performed By: #### L IPID, CMP, TSH, URIC, T7 ####[facility] [address] [place] [address]Dr. Rehana Martinez ALP [Catalytic activity/Vol] 105 U/L Normal 46-116 [facility] Comment on above: Performed By: #### L IPID, CMP, TSH, URIC, T7 ####[facility] [address] [place] [address]Dr. Rehana Martinez ALT [Catalytic activity/Vol] 16 U/L Normal 16-63 [facility] Comment on above: Performed By: #### L IPID, CMP, TSH, URIC, T7 ####[facility] [address] [place] [address]Dr. Rehana Martinez Anion gap [Moles/Vol] 11.8 mmol/L Normal [facility] Comment on above: Performed By: #### L IPID, CMP, TSH, URIC, T7 ####[facility] [address] [place], [place] [address]Dr. Rehana Martinez AST [Catalytic activity/Vol] 16 U/L Normal 15-37 [facility] Comment on above: Performed By: #### L IPID, CMP, TSH, URIC, T7 ####[facility] [address] [place], [place] [address]Dr. Rehana Martinez Bilirubin [Mass/Vol] 0.6 mg/dL Normal 0.2-1.0 [facility] Comment on above: Performed By: #### L IPID, CMP, TSH, URIC, T7 ####[facility] [address] [place], [place] [address]Dr. Rehana Martinez Calcium [Mass/Vol] 9.1 mg/dL Normal 8.5-10.1 [facility] Comment on above: Performed By: #### L IPID, CMP, TSH, URIC, T7 ####[facility] [address] [place], [place] [address]Dr. Rehana Martinez Chloride [Moles/Vol] 103 mmol/L Normal 98-107 [facility] Comment on above: Performed By: #### L IPID, CMP, TSH, URIC, T7 ####[facility] [address] [place] [address]Dr. Rehana Martinez CO2 [Moles/Vol] 26.0 mmol/L Normal 21.0-32.0 [facility] Comment on above: Performed By: #### L IPID, CMP, TSH, URIC, T7 ####[facility] [address] [place], [place] [address]Dr. Rehana Martinez Creatinine [Mass/Vol] 0.94 mg/dL Normal 0.70-1.30 [facility] Comment on above: Performed By: #### L IPID, CMP, TSH, URIC, T7 ####[facility] [address] [place] [address]Dr. Rehana Martinez EGFR-AF COLOMBIAN >60 Normal >=60 [facility] Comment on above: Performed By: #### L IPID, CMP, TSH, URIC, T7 ####[facility] [address] [place] [address]Dr. Rehana Martinez EGFR-NON AF COLOMBIAN >60 Normal >=60 [facility] Comment on above: Performed By: #### L IPID, CMP, TSH, URIC, T7 ####[facility] [address] [place] [address]Dr. Rehana Martinez Globulin (S) [Mass/Vol] 3.8 g/dL Normal [facility] Comment on above: Performed By: #### L IPID, CMP, TSH, URIC, T7 ####[facility] [address] [place], [place] [address]Dr. Rehana Martinez Glucose [Mass/Vol] 109 mg/dL Critically high 74-106 [facility] Comment on above: Performed By: #### L IPID, CMP, TSH, URIC, T7 ####[facility] [address] [place] [address]Dr. Rehana Martinez Potassium [Moles/Vol] 3.8 mmol/L Normal 3.5-5.1 [facility] Comment on above: Performed By: #### L IPID, CMP, TSH, URIC, T7 ####[facility] [address] [place] [address]Dr. Rehana Martinez Protein [Mass/Vol] 7.1 g/dL Normal 6.4-8.2 [facility] Comment on above: Performed By: #### L IPID, CMP, TSH, URIC, T7 ####[facility] [address] [place] [address]Dr. Rehana Martinez Sodium [Moles/Vol] 137 mmol/L Normal 136-145 [facility] Comment on above: Performed By: #### L IPID, CMP, TSH, URIC, T7 ####[facility] [address] [place], [place] [address]Du. Rehana Martinez Urea nitrogen [Mass/Vol] 17.0 mg/dL Normal 7.0-18.0 [facility] Comment on above: Performed By: #### L IPID, CMP, TSH, URIC, T7 ####[facility] [address] [place], [place] [address]Vh. Rehana Martinez Urea nitrogen/Creatinin e [Mass ratio] 18.1 mg/mg Normal [facility] Comment on above: Performed By: #### L IPID, CMP, TSH, URIC, T7 ####[facility] [address] [place], [place] [address]Tc. Rehana Martinez TSHon 07-25-2022 TSH 1.619 uIU/mL Normal 0.358-3.[address] [facility] Comment on above: Performed By: #### L IPID, CMP, TSH, URIC, T7 ####[facility] [address] [place], [place] [address]To. Rehana Martinez URIC ACID SERUMon 07-25-2022 Urate [Mass/Vol] 5.7 mg/dL Normal 3.5-7.2 [facility] Comment on above: Performed By: #### L IPID, CMP, TSH, URIC, T7 #### [facility] [address] [place], [place] [address] Dr. Rehana Martinez PSA, FREE AND TOTAL RATIOon 03-13-2022 % Free PSA 15.5 % Normal [facility] Comment on above: Result Comment: [...] men. Performed By: #### P SAFREE #### [facility] [address] [place] [address] Dr. Rehana Martinez Prostate specific Ag [Mass/Vol] 4.9 ng/mL Critically high 0.0-4.0 [facility] Comment on above: Result Comment: Arnoldo benedict ECLIA methodology. . According to the [place] [employer], Serum PSA should decrease and [...] disease. Performed By: #### P SAFREE #### [facility] [address] [place] [address] Dr. Rehana Martinez PSA, Free 0.76 ng/mL Normal N/A [facility] Comment on above: Result Comment: Roch ned ECLIA methodology. Performed By: #### P SAFREE #### [facility] [address] [place] [address] Dr. Rehana Martinez CREATININEon 12-14-2021 Creatinine [Mass/Vol] 1.01 mg/dL Normal 0.70-1.30 [facility] Comment on above: Performed By: #### C MAXINE #### [facility] [address] [place] [address] Dr. Rehana Martinez EGFR-AF COLOMBIAN >60 Normal >=60 [facility] Comment on above: Performed By: #### C MAXINE #### [facility] [address] [place] [address] Dr. Rehana Martinez EGFR-NON AF COLOMBIAN >60 Normal >=60 [facility] Comment on above: Performed By: #### C MAXINE #### [facility] [address] [place] [address] ABD/PELV W CONon [...] by: BRANDIE RUDD Date: 2021-12-14 11:36 Normal [facility] Vital Signs Date Time Vital Sign Value Performing Clinician Yunier nunez 03-27-2022 10:11-0400 Blood Pressure Location [employer] [facility] 03-27-2022 10:11-0400 Diastolic blood pressure 57 mm[Hg] [employer] [facility] 03-27-2022 10:11-0400 Heart rate 57 /min [employer] [facility] 03-27-2022 10:11-0400 Respiratory rate 16 /min [employer] [facility] 03-27-2022 10:11-0400 Systolic blood pressure 154 mm[Hg] [employer] [facility] 12-05-2021 08:16-0400 Blood Pressure Location Monica Mondragon Jr. [facility] 12-05-2021 08:16-0400 Diastolic blood pressure 84 mm[Hg] Monica Mondragon Jr. [facility] 12-05-2021 08:16-0400 Heart rate 75 /min Monica Mondragon Jr. [facility] 12-05-2021 08:16-0400 Systolic blood pressure 118 mm[Hg] Monica Mondragon Jr. [facility] Encounters Encounter Date Encounter Type Care Provider Facility Start: 02-13-2024 ambulatory ELIZABETH Teague ty:PRICILA [place] Start: 11-07-2023 End: 11-07[facility]: 10-03-[address] [facility] Start: 10-02-2023 End: 10-02-2023 ambulatory MAIDA [facility] Start: 09-26-2023 End: 09-26-2023 ambulatory [facility] Start: 09-04-2023 Evaluation and manag ement of inpatient MAYELIN WOLFE [facility] Start: 09-04-2023 Evaluation and manag ement of inpatient WILIAM BRAGG [facility] Start: 09-03-2023 Evaluation and manag ement of inpatient WILIAM BRAGG [facility] Start: 09-01-2023 Evaluation and manag ement of inpatient JOHN BEAVER [facility] Start: 09-01-2023 End: 09-04-2023 Evaluation and management of inpatient WILIAM YEMI MANCIACLARK [facility] Start: 08-14-2023 End: 08-14-2023 ambulatory LEONORAAB BARROSJOESPHDagmar [facility] Start: 07-18-2023 End: 07-18-2023 ambulatory MAYELIN WOLFE [facility] Start: 07-08-2023 Evaluation and manag ement of inpatient DOMENIC [facility] Start: 07-06-2023 Evaluation and manag ement of inpatient [facility] Start: 07-06-2023 Evaluation and manag ement of inpatient DOMENIC [facility] Start: 07-05-2023 Evaluation and manag ement of inpatient [facility] Start: 07-05-2023 End: 07-09-2023 [facility]: 05-16-2023 [facility] Start: 05-14-2023 End: 05-14-2023 ambulatory VALENTINA CABRERA [facility] Start: 05-06-2023 Evaluation and manag ement of inpatient ELINA HOLLEY [facility] Start: 05-03-2023 End: 05-03-2023 ambulatory [facility] Start: 05-01-2023 Evaluation and manag ement of inpatient [facility] Start: 04-30-2023 Evaluation and manag ement of inpatient [facility] Start: 04-30-2023 Evaluation and manag ement of inpatient [facility] Start: 04-30-2023 Evaluation and manag ement of inpatient [facility] Start: 04-29-2023 Evaluation and manag ement of inpatient [facility] Start: 04-27-2023 Evaluation and manag ement of inpatient [facility] Start: 04-26-2023 Evaluation and manag ement of inpatient [facility] Start: 04-25-2023 Evaluation and manag ement of inpatient [facility] Start: 04-25-2023 Evaluation and manag ement of inpatient KAREY SAWANT [facility] Start: 04-24-2023 Evaluation and manag ement of inpatient [facility] Start: 04-24-2023 Evaluation and manag ement of inpatient [facility] Start: 04-23-2023 [facility]: [facility]-23[facility]23 [facility] Start: 04-23-2023 End: 04-23-2023 Evaluation and management of inpatient [facility] Start: 04-23-2023 Evaluation and manag ement of inpatient KAREY SAWANT [facility] Start: 04-23-2023 Evaluation and manag ement of inpatient KAREY SAWANT [facility] Start: 04-22-2023 Evaluation and manag ement of inpatient [facility] Start: 04-22-2023 Evaluation and manag ement of inpatient [facility] Start: 04-22-2023 Evaluation and manag ement of inpatient KAREY SAWANT [facility] Start: 04-22-2023 End: 05-01-2023 Evaluation and management of inpatient [facility] Start: 04-09-2023 End: 04-09-2023 Encounter for preprocedural cardiovascular examination [facility] Start: 04-09-2023 End: 04-09-2023 ambulatory [facility] Start: 04-04-2023 ambulatory [facility] Start: 03-23-2023 [facility] Start: 03-23-2023 Evaluation and manag ement of inpatient KAREY SÁNCHEZGARCIA [facility] Start: 03-22-2023 Evaluation and manag ement [facility] Start: 03-22-2023 Evaluation and manag ement of inpatient JENNA [facility] Start: 03-22-2023 Evaluation and manag ement of inpatient RODGER [facility] Start: 03-21-2023 End: 03-23-2023 Evaluation and management of inpatient DOMENIC [facility] Start: 01-29-2023 End: 01-29-2023 ambulatory ELIZABETH LINDSAY Facility:[facility] Start: 01-29-2023 End: 01-29-2023 Patient encounter procedure ELIZABETH LINDSAY [facility] Start: 08-04-2022 End: 08-05-[address] TYSON JAQUEZ . Facility: Start: 07-25-2022 End: 07-26-[address] TYSON JAQUEZ . Facility: Start: 03-27-2022 End: 03-27-2022 Patient encounter procedure Casper RAUSCH [facility] Start: 03-21-2022 End: 03-21-2022 Patient encounter procedure Casper RAUSCH [facility] Start: 03-12-2022 End: 03-13-[address] CASPER RAUSCH Facility:[facility] Start: 02-05-2022 End: 02-05-2022 Patient encounter procedure Monica Mondragon Jr. [facility] Start: 12-14-2021 End: 12-15-2021 ambulatory MONICA MONDRAGON JR Facility: Start: 12-05-2021 End: 12-05-2021 Patient encounter procedure Monica Mondragon Jr. [facility] Procedures Date Procedure Procedure Detail Performing Clinician Start: 10-02-2023 Follow-up visit MICHAEL IE PATRICK Start: 08-14-2023 Follow-up visit MICHAEL IE PATRICK Start: 05-16-2023 Follow-up visit MICHAEL IE PATRICK Start: 05-14-2023 Follow-up visit MICHAEL IE PATRICK Start: 04-04-2023 Follow-up visit MICHAEL IE PATRICK Start: 07-25-[address] FABIOLA JAQUEZ . Comment on above: Performed By: #### P [facility] #### [facility] [address] [place], [place] [address] Dr. Rehana Martinez Start: 03-21-2022 Cystoscopy ELIZABETH JOHNSTON Start: 12-14-[address] FABIOLA JAQUEZ . Comment on above: Performed By: #### P SAD ####[facility] [address] [place], [place] [address]HcDr. Rehana Martinez Start: 01-23-2018 Cystoscopy Monica stephen Jr. Comment on above: 07/22/09, 01/23/18 07/22/09, 01/23/18 Immunizations Immunization Date Immunization Notes Care Provider Cipriano moody 06-20-2021 SARS-CoV-2 (COVID-19 ) mRNA BNT-162b2 eduardox Casper RAUSCH [facility] 09-13-2020 SARS-CoV-2 (COVID-19 ) Ad26 vaccine, recombinant Monica Mondragon Jr. [facility] 08-22-2020 SARS-CoV-2 (COVID-19 ) Ad26 vaccine, recombinant Monica Giancarlo Campbell [facility] NEGATED: Highlighted row has not occurred!12-05-2021 influenza virus vaccine, unspecified formulation Monica Giancarlo Campbell [facility] Payers Date Payer Category Payer Medicare [id number] 1960 Unknown [id number] 1955 Unknown [id number] 2.16.84 [id number] 1955 Unknown [id number] 2.16.84 [id number] 1954 Unknown [id number] 2.16.84 [id number] 1954 Unknown [id number] 2.16.84 [id number] 1954 Unknown [id number] 2.16.8 [id number] 1954 Unknown [id number] 2.16.8 [id number] Social History Date Type Detail Facility Start: 12-05-2021 Tobacco smoking status Heavy t obacco smoker (finding) [facility] Sex Assigned At Male [facility] Functional Status Date Assessment Result Facility 01-29-2023 Functional Status N/A [facility] 03-27-2022 Functional Status N/A [facility] 03-15-2022 Functional Status N/A [facility] 12-05-2021 Functional Status N/A [facility] Clinical Notes 05-23-2021 to 11-07-2023 LaboratoryLaboratoryLaboratoryLaboratory Note Date & Type Note Facility 11-07-[address] [facility] 11-07-[address] [facility] 10-03-[address] [facility] 10-02-[address] [facility] 09-04-[address] [facility] 09-04-[address] [facility] 09-03-[address] [facility] 09-03-[address] [facility] 09-03-[address] [facility] 09-02-[address] [facility] 09-02-[address] [facility] 09-02-[address] [facility] 08-14-[address] [facility] 08-01-[address] [facility] 07-30-[address] [facility] 07-18-[address] [facility] 07-18-[address] [facility] 07-18-2023 Note Increase imdur to 60 mg daily, decrease coreg back to 3.125 mg bid in light of bradycardia and somewhat labile B/P. [facility] 07-18-[address] [facility] 07-18-[address] [facility] 07-09-[address] [facility] 07-09-[address] [facility] 07-09-[address] [facility] 07-08-[address] [facility] 07-07-[address] [facility] 07-07-[address] [facility] 07-06-[address] [facility] 07-02-[address] chest wo [facility] 05-16-[address] [facility] 05-16-[address] [facility] 05-16-[address] [facility] 05-14-[address] [facility] 05-14-[address] [facility] 05-01-2023 Note Patient provided a c opy of the AVS. All questions answered. Patient discharged with belongings and taken down with transport via wheelchair and family at bedside. [facility] 05-01-[address] [facility] 05-01-[address] [facility] 05-01-[address] [facility] 05-01-[address] [facility] 04-30-[address] [facility] 04-30-[address] [facility] 04-29-[address] [facility] 04-29-[address] [facility] 04-29-[address] [facility] 04-29-[address] [facility] 04-28-[address] [facility] 04-28-[address] [facility] 04-27-[address] [facility] 04-27-[address] [facility] 04-27-[address] [facility] 04-27-[address] [facility] 04-26-[address] [facility] 04-26-[address] [facility] 04-26-[address] [facility] 04-26-[address] [facility] 04-26-[address] [facility] 04-26-[address] [facility] 04-25-[address] [facility] 04-25-2023 Note Attempted to call wi fe to get information and give updates. Was unable to reach her, will continue to try. [facility] 04-25-[address] [facility] 04-25-[address] [facility] 04-25-[address] [facility] 04-24-2023 Note Patient is still on vent support. Per RN was off and placed back on yesterday. Consult for s/p CABG. SW to follow. [facility] 04-24-[address] [facility] 04-24-2023 Note Physical Therapy Patient intubated/sedated at this time. PT will check back and follow as appropriate. Stella Bustos, CHANTEL [facility] 04-24-[address] [facility] 04-24-2023 Note Occupational Therapy Cancel Note Reason: Patient intubated and sedated at this time. OT will continue to follow and will re-attempt as able. Time in: 0808 Check no charge Thelma CAMEJO, OTR/L, CLT [facility] 04-24-[address] [facility] 04-23-[address] [facility] 04-23-[address] [facility] 04-23-[address] [facility] 04-23-[address] [facility] 04-23-[address] [facility] 04-23-[address] [facility] 04-22-2023 Note TRIGGER: PRESSURE 1:1 FULLY AUGMENTED [facility] 04-22-2023 Note TRIGGER: PRESSURE 1:1 FULLY AUGMENTED [facility] 04-22-2023 Note INSERTED WITHOUT COM PLICATION USING STERILE TECHNIQUE; DRAINING CLEAR YELLOW URINE; TO BE MONITORED BY ANESTHESIA FOR DURATION OF THE CASE [facility] 04-22-[address] [facility] 04-22-[address] [facility] 04-22-[address] [facility] 04-09-[address] [facility] 04-09-[address] [facility] 04-04-[address] [facility] 04-01-[address] [facility] 03-23-[address] [facility] 03-23-[address] [facility] 03-22-[address] [facility] 03-22-[address] [facility] 03-27-2022 Hospital Discharge instructions Patient Education [...] urethra. Follow these instructions at home: Take jsav-sgn-qktthoq and prescription medicines only as told by [...] 06/03/2006 Document Revised: 04/28/2019 Document Reviewed: 07/08/2017 [employer] Patient Education 2020 [employer]. Follow Up Care 03/21/2022 11:25:28 With:Giancarlo Campbell MD, Monica Menendez URO Address: [facility] [address] , [place] [address]- When: Unknown [facility] 02-27-2022 Hospital Discharge instructions Follow Up Care 02/27/2022 13:20:12 With:Casper RAUSCH Address: [address] [place] [phone]- Business (1) When:5 to 7 days With:Casper RAUSCH Address: [address] [place] [phone]- Business (1) When: Unknown [facility] 12-05-2021 Hospital Discharge instructions Patient Education [...] Follow these instructions at home: Medicines Take xmfk-asu-eayaphv and prescription medicines only as told by [...] or the blood stops without treatment. Take uhls-sal-bhmojqd and prescription medicines only as told by your health care provider. Drink enough fluid to keep your urine clear or pale yellow. This information is not intended to replace advice given to you by your health care provider. Make sure you discuss any questions you have with your health care provider. Document Released: 06/03/2006 Document Revised: 10/28/2019 Document Reviewed: 07/06/2017 [employer] Patient Education 2020 [employer]. Follow Up Care 05/30/2021 15:33:59 With:Monica Mondragon Jr., MD, URO Address: [facility] [address] [place] [phone] When: Unknown [facility] 05-23-2021 Hospital Discharge instructions Follow Up Care 05/23/2021 11:27:47 With:ELIZABETH LINDSAY PA-C, URL Address: [place] [address] When:Within 1 Year(s) Comments:w/PSA [facility] Evaluation + Plan note Future Appointments Appointment Date:05/22/2022 11:00:00 AM Scheduled Provider:Monica Mondragon Jr., MD Location:[facility] Appointment Type:URO Office Visit Diagnostic Tests PendingPSA Total 12/05/21 Future Scheduled TestsPSA Free & Total 05/30/21 [facility] Evaluation + Plan note Future Appointments Appointment Date:05/22/2022 11:00:00 AM Scheduled Provider:Monica Mondragon Jr., MD Location:[facility] Appointment Type:URO Office Visit Future Scheduled TestsPSA Free & Total 05/30/21 [facility] Evaluation + Plan note Future Appointments Appointment Date:03/27/2022 09:45:00 AM Scheduled Provider:Casper RAUSCH MD Location:[facility] Appointment Type:URO Office Visit Appointment Date:05/22/2022 11:00:00 AM Scheduled Provider:Monica Mondragon Jr., MD Location:[facility] Appointment Type:URO Office Visit Diagnostic Tests [facility] ([facility]) 03/21/22 Future Scheduled TestsPSA Free & Total 05/30/21 [facility] Evaluation + Plan note Future Appointments Appointment Date:09/18/2022 09:15:00 AM Scheduled Provider:Monica Mondragon Jr., MD Location:[facility] Appointment Type:URO Office Visit Diagnostic Tests PendingPSA Free & Total 06/17/22 Future Scheduled TestsPSA Free & Total 05/30/21 [facility] Evaluation + Plan note Future Appointments Appointment Date:02/11/2024 08:30:00 AM Scheduled Provider:ELIZABETH LINDSAY PA-C Location:[facility] Appointment Type:URO Office Visit Diagnostic Tests PendingPSA Total 01/29/23 [facility] course Narrative No data available for this section [facility] Discharge instructions No data available for this section [facility] Progress note No data available for this section [facility] Summary Purpose Family History No Family History Records FoundNo Family History Records FoundNo Family History Records Found Advance Directives No Advanced Directives Records FoundNo Advanced Directives Records FoundNo Advanced Directives Records Found Additional Source Comments Care Team (unrecognized sect ion and content) Personnel Name: Tyson Jaquez MD Address: [address] [place] [address] Personnel Name: Tyson Jaquez MD Address: [address] [place] [address] Personnel Name: Tyson Jaquez MD Address: Address: [address] [place] [address] Personnel Name: Tyson Jaquez MD Address: Address: [address] [place] [address] Personnel Name: Tyson Jaquez MD Address: Address: [address] [place] [address] (unrecognized sect ion and content) No Status Records FoundNo Status Records FoundNo Status Records Found INFORMATION SOURCE (unrecogn ized section and content) DATE CREATED AUTHOR 08/10/2022 [facility] DATE CREATED AUTHOR AUTHOR'S ORGANIZ ATION 11/16/[address] [facility] DATE CREATED AUTHOR AUTHOR'S ORGANIZ ATION 01/24/2024 [facility] FOR RECORDS PERTAINING TO PATIENTS [...] BE BASED ON THE PRIMARY CLINICAL RECORDS. [employer] provides no warranty or guarantee of the accuracy or completeness of information in this document.
[2024-01-29] VITALS (105 sets, daily range): BP systolic 110–143; BP diastolic 46–69; PULSE 44–98; TEMP 36.6–37.1; O2SAT 95–100
[2024-01-29] MEDS: CARVEDILOL 3.125 MG TABLET PO ×3 (00:27→21:57)
[2024-01-29] MEDS: ATORVASTATIN CALCIUM 40 MG TABLET 80 MG PO ×2 (00:27→08:55)
[2024-01-29] MEDS: 0.9 % SODIUM CHLORIDE 1,000 ML 50 ML IV ×2 (00:27→21:51)
[2024-01-29] MEDS: PANTOPRAZOLE SODIUM 40 MG VIAL IV ×2 (00:28→21:57)
[2024-01-29 01:47] LABS: PTT Heparin Monitor 55.7 sec (48.2-68.6)
[2024-01-29 06:13] LABS: Basophils Percent Auto 0.4 % (0.2-2.0); Eosinophils Percent Auto 0.6 % (0.9-7.0); Hemoglobin 12.9 g/dL (14.0-18.0); Immature Granulocytes Abs Auto 0.02 10^3/uL (0.00-0.03); Immature Granulocytes Pct Auto 0.3 % (0.0-0.5); Lymphocytes Absolute Auto 2.2 10^3/uL (1.2-3.8); Lymphocytes Percent Auto 33.4 % (20.5-60.0); Mean Corpuscular HGB Conc 33.9 g/dL (29.9-35.2); Mean Corpuscular Hemoglobin 30.6 pg (25.9-34.0); Mean Corpuscular Volume 90.3 fL (80.0-94.0); Mean Platelet Volume 9.7 fL (9.5-13.5); Monocytes Absolute Auto 0.7 10^3/uL (0.3-0.8); Monocytes Percent Auto 9.7 % (1.7-12.0); Neutrophils Absolute Auto 3.7 10^3/uL (1.4-6.5); Neutrophils Percent Auto 55.6 % (43.0-75.0); Platelet Count 197 10^3/uL (150-450); Red Blood Count 4.21 10^6/uL (4.70-6.10); Red Cell Distribution Width 13.2 % (11.0-15.0); White Blood Count 6.7 10^3/uL (4.0-11.0)
[2024-01-29 06:31] LABS: Alanine Aminotransferase 17 U/L (16-63); Albumin Globulin Ratio 0.9; Albumin Level 2.9 g/dL (3.4-5.0); Alkaline Phosphatase 137 U/L (46-116); Anion Gap 12.3; Aspartate Amino Transferase 16 U/L (15-37); BUN Creatinine Ratio 16.7; Bilirubin Total 0.2 mg/dL (0.2-1.0); Calcium 8.5 mg/dL (8.5-10.1); Carbon Dioxide 23.1 mmol/L (21.0-32.0); Chloride 107 mmol/L (98-107); Estimated GFR (African America >60 (>=60); Estimated GFR (Non-African Ame >60 (>=60); Globulin 3.2 g/dL; Glucose 136 mg/dL (74-106); INR 1.05; Magnesium 1.5 mg/dL (1.8-2.4); PTT Heparin Monitor 49.3 sec (48.2-68.6); Phosphorus 2.9 mg/dL (2.6-4.7); Potassium 3.4 mmol/L (3.5-5.1); Prothrombin Time 11.1 sec (9.0-11.6); Sodium 139 mmol/L (136-145); Total Protein 6.1 g/dL (6.4-8.2)
[2024-01-29 06:46] LABS: Troponin I High Sensitivity 172.9 pg/mL (4.0-76.1)
--- NOTE | 2024-01-29 08:27 | P.HP_ITS ---
HPI H&P: HPI History of Present Illness Chief complaint: NSTEMI BOARD WAIT ON TRANSFER [facility] Narrative: Patient was seen and evaluated in the office 2 days prior to admission, having some shortness of breath. He stated the time did not feel like his previous heart trouble. Encouraged him he still need to get the workup for that because of his history, he completed the workup the following day, even today after his elevated troponins were persisting, recommended transfer to the emergency room. In the emergency room care was discussed with [facility] for transfer. No bed available. EKG without ST elevation, patient will be admitted to the ICU with acute NSTEMI pending transfer. When I saw patient up on the intensive care unit, he was resting comfortably in bed. Denied chest pain. Feels better overall. This is on heparin drip. Opioid HPI Opioid Management Most Recent Pain and Opioid Data: Last Pain Scale 0 07/05/23 11:20 Last Pain Assessment 01/29/24 08:00 Last ORT Total Score 0 01/28/24 22:37 Last ORT Risk Category Low Risk 01/28/24 22:37 Review of Systems ROS Status of ROS 10 or more systems reviewed and unremark able except as noted in history and below PFSH PFS Medical History (Updated 01/28/24 @ 12:29 by Chris New MD) Angina pectoris, unstable ?I20.0 - Unstable angina (ICD-10) Chest pain ?R07.9 - Chest pain, unspecified (ICD-10) PVD (peripheral vascular disease) ?I73.9 - Peripheral vascular disease, unspecified (ICD-10) Hypertension ?I10 - Essential (primary) hypertension (ICD-10) CAD (coronary artery disease) ?I25.10 - Atherosclerotic heart disease of [place] coronary artery without angina pectoris (ICD-10) LLL pneumonia ?J18.9 - Pneumonia, unspecified organism (ICD-10) Acute non-ST elevation myocardial infarction (NSTEMI) ?I21.4 - Non-ST elevation (NSTEMI) myocardial infarction (ICD-10) Surgical History (Updated 05/06/23 @ 21:44 by Lesley Mike) History of open heart surgery ?Z98.890 - Other specified postprocedural states (ICD-10) Family History (Updated 01/28/24 @ 23:08 by Lesley Mike) Father Family history of diabetes mellitus Family history of hypertension Family history of myocardial infarction Brother Family history of stroke Other Family history of CHF (congestive heart failure) Social History (Updated 01/29/24 @ 06:01 by Lesley Mike) Within the past year, how often did you have a drink containing alcohol: never Score interpretation: A score less than 4 is consistent with normal alcohol consumption. Smoking status: Former smoker Non-prescribed substance use: denies use Highest level of school completed/degree received: 6th grade Are you now , , , , never or living with a partner: Little interest or pleasure in doing things: not at all Feeling down, depressed, or hopeless: not at all Feel stressed/tense/nervous/anxious/difficulty sleeping: not at all Do you think of yourself as: straight/heterosexual Gender Identity: male Meds Home Medications and Allergies Home Medications ?Medication ?Instructions ?Recorded ?Confirmed ?Type pantoprazole 40 mg tablet,delayed 40 mg PO DAILY 03/21/23 01/28/24 History release atorvastatin 40 mg tablet 80 mg PO QAM 05/06/23 01/28/24 History clopidogrel 75 mg tablet 75 mg PO QAM 05/06/23 01/28/24 History carvedilol 3.125 mg tablet 3.125 mg PO Q12H 08/31/23 01/28/24 History furosemide 20 mg tablet (Lasix) 20 mg PO .COMPLEX 08/31/23 01/28/24 History lisinopril 10 mg tablet 10 mg PO QAM 08/31/23 01/28/24 History isosorbide mononitrate 60 mg 60 mg PO DAILY 09/01/23 01/28/24 History tablet,extended release 24 hr nitroglycerin 0.4 mg sublingual 0.4 mg sublingual Q5M PRN chest 01/28/24 01/28/24 History tablet pain Allergies Allergy/AdvReac Type Severity Reaction Status Date / Time No Known Drug Allergies Allergy Verified 08/31/23 17:20 Exam Constitutional Vital Signs, click to edit/add: Last Vital Signs Temp 98.8 F 01/29/24 01:40 Pulse 59 L 01/29/24 07:00 Resp 13 01/29/24 05:20 BP 124/53 01/29/24 05:20 Pulse Ox 95 01/29/24 01:40 O2 Del Method Room Air 01/28/24 22:37 Documenting provider has reviewed patient's vital signs: yes Common normals: no apparent distress Chest Common normals: inspection of chest normal (Well-healing midline scar) Respiratory Common normals: normal respiratory effort and no retractions Cardio Common normals: regular rate, regular rhythm and no murmurs Results Labs Labs: Short CBC 01/28/24 01/29/24 Range/Units 11:20 05:20 WBC 7.3 6.7 (4.0-11.0) 10^3/uL Hgb 13.1 L 12.9 L (14.0-18.0) g/dL Hct 38.0 L 38.0 L (42.0-54.0) % Plt Count 255 197 (150-450) 10^3/uL BMP 01/28/24 01/29/24 11:20 05:20 Sodium 137 139 Potassium 3.6 3.4 L Chloride 105 107 Carbon Dioxide 21.6 23.1 BUN 19.0 H 14.0 Creatinine 1.01 0.84 Glucose 134 H 136 H Calcium 8.9 8.5 Liver Function 01/29/24 Range/Units 05:20 Total Bilirubin 0.2 (0.2-1.0) mg/dL AST 16 (15-37) U/L ALT 17 (16-63) U/L Alkaline Phosphatase 137 H (46-116) U/L Albumin 2.9 L (3.4-5.0) g/dL Assessment and Plan Assessment and Plan (1) Non-ST elevation [place] (NSTEMI): (2) Angina pectoris, unstable: (3) Chest pain: (4) Hypertension: (5) CAD (coronary artery disease): Qualifiers: Coronary Disease-Associated Artery/Lesion type: [place] artery [place] vs. transplanted heart: sy[place] heart Associated angina: without angina Qualified Code(s): I25.10 - Atherosclerotic heart disease of [place] coronary artery without angina pectoris (6) Acute non-ST elevation myocardial infarction (NSTEMI): Plan Controlled hypertension, unstable angina with recurrent chest pain despite being on long-acting nitrates, beta-rosangela, MAYNOR inhibitor. Currently pain-free, troponin elevation on admission is improving. Maintain heparin drip. Pending transfer to [facility] for further cardiac intervention. GERD-maintain current medications Iron deficiency anemia-monitor daily Hypertension-stable Hypokalemia-supplement Hypercholesterolemia-continue with home medications Admission status: Patient with acute NSTEMI. Medically necessary treatment will span 2 midnights. Inpatient status. Maintain heparin drip pending transfer to [facility]
--- NOTE | 2024-01-29 08:28 | P.DS_ITS ---
DS: Providers Provider Date of admission: 01/28/24 21:10 Primary care physician: Tyson Nunes MD DS: Diagnosis Discharge Diagnosis (1) Non-ST elevation [place] (NSTEMI): (2) Acute non-ST elevation myocardial infarction (NSTEMI): (3) PVD (peripheral vascular disease): (4) Chest pain: (5) Angina pectoris, unstable: (6) Hypertension: (7) GERD (gastroesophageal reflux disease): Plan Controlled hypertension, unstable angina with recurrent chest pain despite being on long-acting nitrates, beta-rosangela, MAYNOR inhibitor. Currently pain-free, troponin elevation on admission is improving. Maintain heparin drip. Pending transfer to [facility] for further cardiac intervention. GERD-maintain current medications Iron deficiency anemia-monitor daily Hypertension-stable Hypokalemia-supplement Hypercholesterolemia-continue with home medications Admission status: Patient with acute NSTEMI. Medically necessary treatment will span 2 midnights. Inpatient status. Maintain heparin drip pending transfer to [facility] DS: Summary Status at Discharge Cognitive/behavioral status at discharge: Patient was seen and evaluated in the office with increasing shortness of breath. Encourage workup that day but he completed the workup the following day and found to have acute elevation in his high-sensitivity troponin. Recommended transfer to ER. In ER transfer initiated to [facility]. That is pending. High- sensitivity troponins have trended down overnight but are still significantly elevated. Only other issue is some mild hypokalemia which we will supplement. Patient pending transfer to [facility] for continued cardiac workup. Medication status. I will see patient at discharge from [facility] Overall status at discharge: patient is not back to baseline Time Spent with Patient Time attestation: Total time spent providing and/or coordinating discharge services: Time spent: greater than 30 minutes Exam Constitutional Vital Signs, click to edit/add: Last Vital Signs Temp 98.8 F 01/29/24 01:40 Pulse 59 L 01/29/24 07:00 Resp 13 01/29/24 05:20 BP 124/53 01/29/24 05:20 Pulse Ox 95 01/29/24 01:40 O2 Del Method Room Air 01/28/24 22:37 Documenting provider has reviewed patient's vital signs: yes Common normals: no apparent distress Chest Common normals: inspection of chest normal (Well-healing midline scar) Respiratory Common normals: normal respiratory effort and no retractions Cardio Common normals: regular rate, regular rhythm and no murmurs DS: Data Data Completed and Pending Labs on day of discharge: Labs from last 24 hours 01/29/24 01/29/24 01/28/24 05:20 01:20 19:27 WBC 6.7 RBC 4.21 L Hgb 12.9 L Hct 38.0 L MCV 90.3 MCH 30.6 MCHC 33.9 RDW 13.2 Plt Count 197 MPV 9.7 Neut % (Auto) 55.6 Lymph % (Auto) 33.4 Boyd % (Auto) 9.7 Eos % (Auto) 0.6 L Baso % (Auto) 0.4 Neut # (Auto) 3.7 Lymph # (Auto) 2.2 Boyd # (Auto) 0.7 Eos # (Auto) 0.0 Baso # (Auto) 0.0 Abs Immat Gran (auto) 0.02 Imm/Tot Granulo (auto) 0.3 PT 11.1 INR 1.05 PTT (Heparin Absorb) 49.3 55.7 54.1 Sodium 139 Potassium 3.4 L Chloride 107 Carbon Dioxide 23.1 Anion Gap 12.3 BUN 14.0 Creatinine 0.84 Est GFR ( Amer) >60 Est GFR (Non-Af Amer) >60 BUN/Creatinine Ratio 16.7 Glucose 136 H Calcium 8.5 Phosphorus 2.9 Magnesium 1.5 L Total Bilirubin 0.2 AST 16 ALT 17 Alkaline Phosphatase 137 H Troponin I High Sens 172.9 H* Total Protein 6.1 L Albumin 2.9 L Globulin 3.2 Albumin/Globulin Ratio 0.9 01/28/24 11:20 WBC 7.3 RBC 4.20 L Hgb 13.1 L Hct 38.0 L MCV 90.5 MCH 31.2 MCHC 34.5 RDW 13.2 Plt Count 255 MPV 9.2 L Neut % (Auto) 63.5 Lymph % (Auto) 26.4 Boyd % (Auto) 9.4 Eos % (Auto) 0.3 L Baso % (Auto) 0.3 Neut # (Auto) 4.6 Lymph # (Auto) 1.9 Boyd # (Auto) 0.7 Eos # (Auto) 0.0 Baso # (Auto) 0.0 Abs Immat Gran (auto) 0.01 Imm/Tot Granulo (auto) 0.1 PT INR PTT (Heparin Absorb) Sodium 137 Potassium 3.6 Chloride 105 Carbon Dioxide 21.6 Anion Gap 14.0 BUN 19.0 H Creatinine 1.01 Est GFR ( Amer) >60 Est GFR (Non-Af Amer) >60 BUN/Creatinine Ratio 18.8 Glucose 134 H Calcium 8.9 Phosphorus Magnesium Total Bilirubin AST ALT Alkaline Phosphatase Troponin I High Sens 207.5 H* Total Protein Albumin Globulin Albumin/Globulin Ratio Discharge Plan Discharge Disposition: [facility] Condition: Fair Discharge Date/Time: 01/30/24 01:40 Discharge location: [facility] room [id number]
--- NOTE | 2024-01-29 08:37 | CM.NOTE ---
Rounds made with Dr. Nunes. Dr. Nunes discussed lab results and treatment plan and need for transfer for further cardiology services. Gui verbalized understanding. Plan is for transfer to [facility] when bed available.
[2024-01-29] MEDS: CLOPIDOGREL BISULFATE 75 MG TABLET PO (08:55)
[2024-01-29] MEDS: LISINOPRIL 10 MG TABLET PO (08:55)
[2024-01-29] MEDS: ISOSORBIDE MONONITRATE 60 MG TAB.ER.24H PO (08:56)
[2024-01-29] MEDS: POTASSIUM CHLORIDE 10 MEQ ER TABLET PO ×2 (08:57→21:57)
[2024-01-29] MEDS: HYOSCYAMINE SULFATE 0.125 MG TAB.SUBL SL (09:16)
[2024-01-29 09:26] LABS: PTT Heparin Monitor 55.6 sec (48.2-68.6)
--- NOTE | 2024-01-29 09:50 | SWNOTE1 ---
Important Message from [employer] reviewed and discussed with patient. Pt. verbalized understanding and signed the form. Original given to patient and copy placed in patient?s chart. Pt is independent at home and lives with . Plan is for pt to be transferred to higher level of care.
--- NOTE | 2024-01-29 11:19 | PC.NURSE ---
Spoke with [facility] [place] bed coordinator. No bed availablity at this point
[2024-01-29 15:04] LABS: PTT Heparin Monitor 52.9 sec (48.2-68.6)
--- NOTE | 2024-01-29 17:15 | DIETREC ---
Recommend Heart Healthy diet for this pt d/t cardiac diagnoses; Dr. Nunes notified.
[2024-01-29 20:04] LABS: PTT Heparin Monitor 49.8 sec (48.2-68.6)
[2024-01-29] MEDS: HEPARIN SODIUM,PORCINE/D5W 25,000 UNIT/500 ML IV.SOLN 14.587 UNIT IV (21:56)
[2024-01-30] VITALS: PULSE 46
[2024-01-30 00:44] VITALS: BP 103/45; PULSE 46; TEMP 36.6; O2SAT 95
== END 2024-01-30 01:40 | disposition short-term general hospital (02) | DRG 282 ==
LOC: ER 21:12 → ICU 22:26
PROVIDERS: Emergency Medicine; Registered Nurse; Admitting Provider Family Medicine; Emergency Provider Emergency Medicine; PCP Family Medicine; Visit Provider Family Medicine
DX: I21.4 Non-ST elevation (NSTEMI) myocardial infarction (principal); I25.110 Atherosclerotic heart disease of native coronary artery with unstable angina pectoris; K21.9 Gastro-esophageal reflux disease without esophagitis; I73.9 Peripheral vascular disease, unspecified; E87.6 Hypokalemia; E78.00 Pure hypercholesterolemia, unspecified; D50.9 Iron deficiency anemia, unspecified; Z87.891 Personal history of nicotine dependence; Z87.01 Personal history of pneumonia (recurrent); I10 Essential (primary) hypertension; R07.9 Chest pain, unspecified; M10.9 Gout, unspecified; Z95.5 Presence of coronary angioplasty implant and graft
CPT/HCPCS: 36415; 71045; 80048; 80053; 80061; 82378; 83036; 83735; 83880; 84100; 84153; 84154; 84155; 84165; 84436; 84443; 84481; 84484; 84550; 85025; 85610; 85730; 86301; 93005; 94667; 94668; 94761; 96365; 96366; 96375; 96376; 99285; J1644

== ENCOUNTER 2024-06-28 00:19 | Emergency (ER) | payer MEDICARE, SELFPAY ==
[2024-06-28] VITALS (24 sets, daily range): BP systolic 68–121; BP diastolic 44–70; PULSE 85–109; TEMP 37.2; O2SAT 66–99; BMI 24.1
--- OUTSIDE RECORDS SUMMARY | 2024-06-28 00:27 | XMS_ITS | CCD ---
Author Organization [facility] Care Team Providers Care Intraoperative Neuro Tech Name Role Phone Tyson Jaquez Primary [...] Unavailable SHALOM, DR CASPER Grace Admitting Unavailable SHALOM, DR CASPER Grace Attending Unavailable HOY ., DR PERALES Primary Care Unavailable RICE, DR CASPER Grace Consulting Unavailable HOY ., DR PERALES Admitting Unavailable HOY ., DR PERALES Attending Unavailable HOY ., DR PERALES Primary Care Unavailable HOY ., DR PERALES Consulting Unavailable ZIEBER, DR DAVID Bond Consulting Unavailable ELIZABETH LINDSAY Attending Unavailable ELIZABETH LINDSAY Attending Unavailable DOMENIC NGUYEN Attending Unavailable SHOAIB, SUSANNE Admitting Unavailable YANN VILLALBA Referring Unavailable PETER, CHAITANYA Referring Unavailable JACOB ALEJO Attending Unavailable JOHN BEAVER Referring Unavailable MACEYROSMERY Shaw Attending Unavailable LIA PARADA Admitting Unavailable YANN VILLALBA Referring Unavailable ELINA HOLLEY Referring Unavailable ANIA FERGUSON Referring Unavailable JENNA CABRERA Referring Unavailable CHAITANYA AMES Referring Unavailable KAREY SAWANT Referring UnavailKAREY Davis Referring Unavailabl e PETER, CHAITANYA Referring Unavailable CARRIZO, CHAITANYA Referring Unavailable CARRIZO, CHAITANYA Referring Unavailable SAPNA, LILLIAMED Referring Unavailable JUANITA COLEMAN Referring Unavailable CARRIZO, CHAITANYA Referring Unavailable ZANDER BLEDSOE Referring Unavailable JIGAR, Referring Unavailable KULAKOWSKI, KAREY Dhaliwal Referring Unavailabl e ELTAHAWY, EHAB Attending Unavailable KULAKOWSKI, KAREY Dhaliwal Referring Unavailabl e CARRIZO, CHAITANYA Attending Unavailable ELTAHAWY, EHAB Attending Unavailable OMBALLJACOB Fox Attending Unavailable CELENA GARCIA Attending Unavailable JIGAR, Attending Unavailable PERNEJUANITA Attending Unavailable YANETH, MAYELIN Attending Unavailable RICKVALENTINA Attending Unavailable ELTAHAWY, EHAB Attending Unavailable KULAKOERNSTKI, KAREY Dhaliwal Referring Unavailabl e KULAKOWSKI, KAREY Dhaliwal Referring Unavailabl e GANGWANI, WILIAM BRAGG Referring Unavailab DECLAN Mcdonald Attending Unavailable CARRIZO, CHAITANYA Referring Unavailable GANGWANI, WILIAM BRAGG Referring Unavailab le CARRIZO, CHAITANYA Referring Unavailable JIGAR, Referring Unavailable CARRIZO, CHAITANYA Referring Unavailable CARRIZO, CHAITANYA Referring Unavailable JIGAR, Referring Unavailable CLIFFEL, CESAR Referring Unavailable CLIFFEL, CESAR Referring Unavailable YANETH, MAYELIN Referring Unavailable PIRKL, MARY Referring Unavailable MACEY, HANI Referring Unavailable MACEY, HANI Referring Unavailable PHYLLIS, YOUNGSOOK Referring Unavailable PHYLLIS, YOUNGSOOK Referring Unavailable PHYLLIS, YOUNGSOOK Referring Unavailable PATRICK, DOMENIC Attending Unavailable SHOAIB, SUSANNE Admitting Unavailable PAYRIZWANA Referring Unavailable GANGWANI, WILIAM BRAGG Attending Unavailab LIA Vitale Admitting Unavailable HAYELINA Referring Unavailable CARRIZO, CHAITANYA Attending Unavailable CARRIZO, CHAITANYA Admitting Unavailable CARRIZO, CHAITANYA Referring Unavailable KUMISSYKOERNSTKI, KAREY J Referring Unavailabl e KULAKOWSKI, KAREY J Referring Unavailabl e JIGAR, Referring Unavailable DARSHANRODGER DE DIOS Referring Unavailable RICKJENNA Referring Unavailable PATRICK, DOMENIC Referring Unavailable KULAKOWSKI, KAREY Dhaliwal Referring Unavailabl e PIRKL, MARY Referring Unavailable PIRKL, MARY Referring Unavailable PATRICK, DOMENIC Referring Unavailable MACEY, HANI Referring Unavailable PATRICK, DOMENIC Referring Unavailable CARRIZO, CHAITANYA Referring Unavailable CARRIZO, CHAITANYA Referring Unavailable Allergies Allergy Classification Reported Allergen(s) Allergy Type Date of Onset Reaction(s) Facility (1 source) No Known Medication Allergies; Translations: [No Known Medication Allergies] Propensity to adverse reactions (disorder) [facility] Repository Medications Current Medications Medication Drug Class(es) Dates Sig (Normalized) Sig (Original) apixaban 5 mg oral tablet (1 source) Factor Xa Inhibitor Start: 02-13-2024 Eliquis 5 mg oral tablet 5 mg = 1 tab(s), Refills(s) 0 Start Date: 02/13/24 Status: Ordered atorvastatin 80 mg oral tablet (1 source) HMG-CoA Reductase Inhibitor Start: 02-13-2024 atorvastatin 80 mg Tab 80 mg = 1 tab(s), Refills(s) 0 Start Date: 02/13/24 Status: Ordered carvedilol 3.125 mg oral tablet (1 source) alpha-Adrenergic Mahesh, beta-Adrenergic Mahesh Start: 02-13-2024 carvedilol 3.125 mg Tab 3.125 mg = 1 tab(s), Refills(s) 0 Start Date: 02/13/24 Status: Ordered clopidogrel 75 mg oral tablet (1 source) P2Y12 Platelet Inhibitor Start: 02-13-2024 clopidogrel 75 mg Tab 75 mg = 1 tab(s), Refills(s) 0 Start Date: 02/13/24 Status: Ordered 24 hr isosorbide mononitrate 30 mg extended release oral tablet (1 source) Nitrate Vasodilator Start: 02-13-2024 isosorbide mononitrate 30 mg ER Tab 30 mg = 1 tab(s), Refills(s) 0 Start Date: 02/13/24 Status: Ordered lisinopril 2.5 mg oral tablet (1 source) Angiotensin Converting Enzyme Inhibitor Start: 02-13-2024 lisinopril 2.5 mg Tab 2.5 mg = 1 tab(s), Refills(s) 0 Start Date: 02/13/24 Status: Ordered pantoprazole 40 mg extended release oral tablet (4 sources) Proton Pump Inhibitor Start: 03-15-2022 take 40 mg by mouth once daily pantoprazole 40 mg, Oral, Daily Start Date: 03/15/22 Status: Ordered 12 hr ranolazine 500 mg extended release oral tablet (1 source) Anti-anginal Start: 02-13-2024 ranolazine 500 mg oral ER Tab 500 mg = 1 tab(s), Refills(s) 0 Start Date: 02/13/24 Status: Ordered sucralfate 1000 mg oral tablet (1 source) Aluminum Complex Start: 02-13-2024 sucralfate 1 g Tab 1 gm = 1 tab(s), Refills(s) 0 Start Date: 02/13/24 Status: Ordered tamsulosin hydrochloride 0.4 mg oral capsule (4 sources) alpha-Adrenergic Mahesh Start: 12-05-2021 take 1 capsule by mouth once daily tamsulosin 0.4 mg Cap 0.4 mg = 1 cap(s), Oral, Daily, # 90 cap(s), Refills(s) 3, Pharmacy: [facility]/pharmacy #[id number], 162, cm, 12/05/21 8:20:00 EDT, Height/Length [...] procedure, # 2 cap(s), Refills(s) 0, Pharmacy: [facility]/pharmacy #[id number], 162, cm, 12/05/21 8:20:00 EDT, Height/Length [...] [Other myocardial infarction type] Onset: 04-09-2023 Chronic Cardiac dysrhythmias (4 sources) Unspecified atrial fibrillation; Translations: [Unspecified atrial flutter] Onset: 01-30-2024 Chronic Chronic obstructive pulmonary disease and bronchiectasis (3 sources) Emphysema, unspecified; Translations: [Simple chronic bronchitis] Onset: 07-26-2022 Chronic Congestive heart failure; nonhypertensive (2 sources) Chronic systolic (congestive) heart failure; Translations: [Chronic systolic (congestive) heart failure] Onset: 07-18-2023 Chronic Coronary atherosclerosis and other heart disease (10 sources) Unstable angina; Translations: [Other forms of angina pectoris] Onset: 03-21-2023 Chronic [...] 03-23-2023 Chronic Genitourinary symptoms and ill-defined conditions (2 sources) Urge incontinence; Translations: [Urge incontinence of urine] Onset: 02-13-2024 Chronic Genitourinary symptoms and ill-defined conditions (20 sources) Microscopic hematuria; Translations: [Asymptomatic microscopic hematuria] Onset: 12-05-2021 Episodic Hyperplasia of prostate (11 sources) Benign prostatic hypertrophy with outflow obstruction; Translations: [Benign prostatic hyperplasia with lower urinary tract symptoms] Onset: 12-05-2021 Chronic Other aftercare (1 source) Long-term current use of anticoagulant; Translations: [snf (current) use of anticoagulants] Onset: 02-13-2024 Episodic Other circulatory disease (2 sources) Stricture of artery; Translations: [Stricture of artery] Onset: 04-09-2023 Chronic Other male genital disorders (6 sources) 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 Other [...] dependence, unspecified, uncomplicated] Onset: 07-26-2022 Chronic Unclassified (6 sources) Asymptomatic microscopic hematuria 12-05-2021 Unclassified (1 source) Drug therapy finding 02-13-2024 Unclassified (1 source) Other specified disease of [...] Translations: [Solitary pulmonary nodule] Onset: 04-04-2023 Episodic Shock (2 sources) Cardiogenic shock; Translations: [Cardiogenic shock] Onset: 04-23-2023 Episodic Unclassified (1 source) Other specified disease of esophagus; Translations: [Other specified disease of esophagus] Onset: 09-01-2023 Results Test Name Value Interpretation Reference Range Facility 36on 02-04-[address] [facility] Telephoneon 02-04-2024 Telephone [id number] Gui Ortiz Sr. 1955 M Date Provider Department Center 02/04/2024 HIGINIO KRAMER [facility] Family History Family history unknown: Yes Normal [facility] 30on 02-03-[address] [facility] ANTI-XA (HEPARIN LEVEL)on HEPARIN UNFRACTIONATED (U/ML) IN PPP BY CHROMOGENIC METHOD 0.35 IU/mL Normal 0.3-0.[address] [facility] Comment on above: Result Comment: [place] roxaban and Apixaban will interfere with the anti Xa assay used to monitor UFH and LMWH. Performed By: #### L [id number] ####[facility] ([facility])[address] [place] [address] DSon 02-03-2024 DS [facility] NURSNOTEon 02-03-2024 NURSNOTE [facility] POCT GLUCOSE METER UNSOLICIT ED RESULTSon 02-03-2024 Glucose [Mass/Vol] 142 mg/dL High 70-105 [facility] Comment on above: Order Comment: Waive d Testing in the ED is performed under the ED CLIA certificate #[id number]. Result Comment: [email or web address] [email or web address] Performed By: #### L [id number] ####[facility] ([employer])[address] [place] [address] Glucose [Mass/Vol] 125 mg/dL High 70-105 [facility] Comment on above: Order Comment: Waive d Testing in the ED is performed under the ED CLIA certificate #[id number]. Result Comment: cfet [email or web address] Performed By: #### L [id number] ####[facility] ([facility])[address] [place] [address] Glucose [Mass/Vol] 115 mg/dL High 70-105 [facility] Comment on above: Order Comment: Waive d Testing in the ED is performed under the ED CLIA certificate #[id number]. Result Comment: [email or web address] [email or web address] Performed By: #### L [id number] ####[facility] ([facility])[address] [facility] [place] [address] TROPONIN Ion 02-03-2024 Troponin I.cardiac [Mass/Vol] 3.61 ng/mL Critically high 0.00-0.[address] [facility] Comment on above: Result Comment: M-UT EVIOUS CRITICAL RESULTPrevious result verified on 02/02/2024 1718 on specimen/case [id number] called with component Troponin I for procedure Troponin I with value 3.19 ng/mL. Performed By: #### L [id number] ####[facility] ([facility])[address] [place] [address] 30on 02-02-[address] [facility] ANTI-XA (HEPARIN LEVEL)on HEPARIN UNFRACTIONATED (U/ML) IN PPP BY CHROMOGENIC METHOD 0.39 IU/mL Normal 0.3-0.[address] [facility] Comment on above: Result Comment: [place] roxaban and Apixaban will interfere with the anti Xa assay used to monitor UFH and LMWH. Performed By: #### L [id number] ####[facility] ([facility])[address] [facility] [address] BASIC METABOLIC PANELon 01-15 Anion gap [Moles/Vol] 10 mmol/L Normal 7-[address] [facility] Comment on above: Performed By: #### L [id number] ####[facility] ([facility])[address] [place] [address] Calcium [Mass/Vol] 8.3 mg/dL Low 8.6-10.3 [facility] Comment on above: Performed By: #### L [id number] ####[facility] ([facility])[address] [facility] [address] Chloride [Moles/Vol] 105 mmol/L Normal 98-[address] [facility] Comment on above: Performed By: #### L [id number] ####[facility] ([facility])[address] [place] [address] CO2 [Moles/Vol] 27 mmol/L Normal 21-31 [facility] Comment on above: Performed By: #### L [id number] ####[facility] ([facility])[address] [place] [address] Creatinine [Mass/Vol] 0.95 mg/dL Normal 0.70-1.[address] [facility] Comment on above: Performed By: #### L [id number] ####[facility] ([facility])[address] [place] [address] GLOMERULAR FILTRATION RATE ML/MIN/1.73 SQ M.PREDICTED 86.1 mL/min/1.73m*2 Normal >60.[address] [facility] Comment on above: Result Comment: [facility]???s estimated glomerular filtration rate (eGFR) will [...] of individuals. Performed By: #### L [id number] ####[facility] ([facility])[address] [place] [address] Glucose [Mass/Vol] 104 mg/dL High 70-100 [facility] Comment on above: Performed By: #### L [id number] ####[facility] ([facility])[address] [place] [address] Potassium [Moles/Vol] 3.6 mmol/L Normal 3.5-5.[address] [facility] Comment on above: Performed By: #### L [id number] ####[facility] ([facility])[address] [place] [address] Sodium [Moles/Vol] 138 mmol/L Normal 136-145 [facility] Comment on above: Performed By: #### L [id number] ####[facility] ([facility])[address] [place] [address] Urea nitrogen [Mass/Vol] 12 mg/dL Normal 7-[address] [facility] Comment on above: Performed By: #### L [id number] ####[facility] ([facility])[address] [place] [address] UREA NITROGEN/CREATININ E (MASS RATIO) IN SER/PLAS 12.[address] [facility] Comment on above: Performed By: #### L [id number] ####[facility] ([facility])[address] [place] [address] CBC WITH AUTO DIFFERENTIALon 02-02-2024 Basophils (Bld) [#/Vol] 0.03 10*3/uL Normal 0.00-0.[address] [facility] Comment on above: Performed By: #### L [id number] ####[facility] ([facility])[address] [place] [address] Basophils/100 WBC (Bld) 0.4 % Normal 0.0-1.[address] [facility] Comment on above: Performed By: #### L [id number] ####[facility] ([facility])[address] [place] [address] Eosinophils (Bld) [#/Vol] 0.10 10*3/uL Normal 0.00-0.[address] [facility] Comment on above: Performed By: #### L [id number] ####[facility] ([facility])[address] [place] [address] Eosinophils/100 WBC (Bld) 1.2 % Normal 0.0-6.[address] [facility] Comment on above: Performed By: #### L [id number] ####[facility] ([facility])[address] [place] [address] Erythrocyte distribution width (RBC) [Ratio] 13.5 % Normal 11.5-15.[address] [facility] Comment on above: Performed By: #### L [id number] ####[facility] ([facility])[address] [place] [address] ERYTHROCYTE MEAN CORPUSCULAR HEMOGLOBIN CONCENTRATION (G/DL) BY AUTOMATED 33.3 g/dL Normal 32.0-35.[address] [facility] Comment on above: Performed By: #### L [id number] ####[facility] ([facility])[address] [place] [address] Hematocrit (Bld) [Volume fraction] 33.6 % Low 39.0-55.[address] [facility] Comment on above: Performed By: #### L [id number] ####[facility] ([facility])[address] [place] [address] Hemoglobin (Bld) [Mass/Vol] 11.2 g/dL Low 13.0-17.[address] [facility] Comment on above: Performed By: #### L [id number] ####[facility] ([facility])[address] [place] [address] Immature granulocytes (Bld) [#/Vol] 0.02 10*3/uL Normal 0.00-0.[address] [facility] Comment on above: Performed By: #### L [id number] ####[facility] ([facility])[address] [place] [address] Immature granulocytes/100 WBC (Bld) 0.2 % Normal 0.0-1.[address] [facility] Comment on above: Performed By: #### L [id number] ####[facility] ([facility])[address] [place] [address] Lymphocytes (Bld) [#/Vol] 1.88 10*3/uL Normal 1.20-4.[address] [facility] Comment on above: Performed By: #### L [id number] ####[facility] ([facility])[address] [place] [address] Lymphocytes/100 WBC (Bld) 23.4 % Normal 20.0-45.[address] [facility] Comment on above: Performed By: #### L [id number] ####[facility] ([facility])[address] [place] [address] MCH (RBC) [Entitic mass] 31.1 pg Normal 27.0-33.[address] [facility] Comment on above: Performed By: #### L [id number] ####[facility] ([facility])[address] [place] [address] MCV (RBC) [Entitic vol] 93.3 fL Normal 82.0-98.[address] [facility] Comment on above: Performed By: #### L [id number] ####[facility] ([facility])[address] [place] [address] Monocytes (Bld) [#/Vol] 0.74 10*3/uL Normal 0.10-1.[address] [facility] Comment on above: Performed By: #### L [id number] ####[facility] ([facility])[address] [place] [address] Monocytes/100 WBC (Bld) 9.2 % Normal 5.0-12.[address] [facility] Comment on above: Performed By: #### L [id number] ####[facility] ([facility])[address] [place] [address] Neutrophils (Bld) [#/Vol] 5.26 10*3/uL Normal 1.60-7.[address] [facility] Comment on above: Performed By: #### L [id number] ####[facility] ([facility])[address] [place] [address] Neutrophils/100 WBC (Bld) 65.6 % Normal 40.0-72.[address] [facility] Comment on above: Performed By: #### L [id number] ####[facility] ([facility])[address] [place] [address] NRBC (PER 100 WBCS) BY AUTOMATED COUNT 0.0 % Normal [address] [facility] Comment on above: Performed By: #### L [id number] ####[facility] ([facility])[address] [place] [address] PLATELETS (10*3/UL) IN BLOOD AUTOMATED COUNT 191 10*3/uL Normal 150-[address] [facility] Comment on above: Performed By: #### L [id number] ####[facility] ([facility])[address] [place] [address] RBC (Bld) [#/Vol] 3.60 10*6/uL Low 4.20-5.70 [facility] Comment on above: Performed By: #### L [id number] ####[facility] ([facility])[address] [place] [address] WBC (Bld) [#/Vol] 8.03 10*3/uL Normal 4.00-10.60 [facility] Comment on above: Performed By: #### L [id number] ####[facility] ([facility])[address] [place] [address] MAGNESIUMon 02-02-2024 Magnesium [Mass/Vol] 1.8 mg/dL Low 1.9-2.[address] [facility] Comment on above: Performed By: #### L [id number] ####[facility] ([facility])[address] [place] [address] PHOSPHORUSon 02-02-2024 Magnesium [Mass/Vol] 3.6 mg/dL Normal 2.5-5.[address] [facility] Comment on above: Performed By: #### L [id number] ####[facility] ([facility])[address] [place] [address] POCT GLUCOSE METER UNSOLICIT ED RESULTSon 02-02-2024 Glucose [Mass/Vol] 130 mg/dL High 70-105 [facility] Comment on above: Order Comment: Waive d Testing in the ED is performed under the ED CLIA certificate #[id number]. Result Comment: [email or web address] Performed By: #### L [id number] ####[facility] ([facility])[address] [place] [address] Glucose [Mass/Vol] 152 mg/dL High 70-105 [facility] Comment on above: Order Comment: Waive d Testing in the ED is performed under the ED CLIA certificate #[id number]. Result Comment: [email or web address] Performed By: #### L [id number] ####[facility] ([facility])[address] [place] [address] Glucose [Mass/Vol] 169 mg/dL High 70-105 [facility] Comment on above: Order Comment: Waive d Testing in the ED is performed under the ED CLIA certificate #[id number]. Result Comment: [email or web address] dic Performed By: #### L [id number] ####[facility] ([facility])[address] [place] [address] Glucose [Mass/Vol] 104 mg/dL Normal 70-105 [facility] Comment on above: Order Comment: Waive d Testing in the ED is performed under the ED CLIA certificate #[id number]. Result Comment: [email or web address] ero Performed By: #### L [id number] ####[facility] ([facility])[address] [place] [address] TROPONIN Ion 02-02-2024 Troponin I.cardiac [Mass/Vol] 3.90 ng/mL Critically high 0.00-0.[address] [facility] Comment on above: Result Comment: M-UT EVIOUS CRITICAL RESULTPrevious result verified on 02/02/2024 1718 on specimen/case [id number] called with component Troponin I for procedure Troponin I with value 3.19 ng/mL. Performed By: #### L [id number] ####[facility] ([facility])[address] [place] [address] Troponin I.cardiac [Mass/Vol] 3.19 ng/mL Critically high 0.00-0.[address] [facility] Comment on above: Result Comment: M-UT EVIOUS CRITICAL RESULTPrevious result verified on 02/01/2024 1853 on specimen/case [id number] called with component Troponin I for procedure Troponin I with value 10.87 ng/mL. Performed By: #### L [id number] ####[facility] ([facility])[address] [place] [address] Troponin I.cardiac [Mass/Vol] 7.51 ng/mL Critically high 0.00-0.[address] [facility] Comment on above: Result Comment: M-UT EVIOUS CRITICAL RESULTPrevious result verified on 02/01/2024 1853 on specimen/case [id number] called with component Troponin I for procedure Troponin I with value 10.87 ng/mL. Performed By: #### L [id number] ####[facility] ([facility])[address] [place] [address] Troponin I.cardiac [Mass/Vol] 8.67 ng/mL Critically high 0.00-0.[address] [facility] Comment on above: Result Comment: M-UT EVIOUS CRITICAL RESULTPrevious result verified on 02/01/2024 1853 on specimen/case [id number] called with component Troponin I for procedure Troponin I with value 10.87 ng/mL. Performed By: #### L [id number] ####[facility] ([facility])[address] [place] [address] 30on 02-01-[address] [facility] [address] [facility] ANTI-XA (HEPARIN LEVEL)on HEPARIN UNFRACTIONATED (U/ML) IN PPP BY CHROMOGENIC METHOD 0.42 IU/mL Normal 0.3-0.[address] [facility] Comment on above: Result Comment: [place] roxaban and Apixaban will interfere with the anti Xa assay used to monitor UFH and LMWH. Performed By: #### L [id number] ####[facility] ([facility])[address] [place] [address] HEPARIN UNFRACTIONATED (U/ML) IN PPP BY CHROMOGENIC METHOD 0.27 IU/mL Low 0.3-0.[address] [facility] Comment on above: Result Comment: [place] roxaban and Apixaban will interfere with the anti Xa assay used to monitor UFH and LMWH. Performed By: #### L [id number] ####[facility] ([facility])[address] [place] [address] HEPARIN UNFRACTIONATED (U/ML) IN PPP BY CHROMOGENIC METHOD 0.41 IU/mL Normal 0.3-0.[address] [facility] Comment on above: Result Comment: [place] roxaban and Apixaban will interfere with the anti Xa assay used to monitor UFH and LMWH. Performed By: #### L [id number] ####[facility] ([facility])[address] [place] [address] BASIC METABOLIC PANELon 08- Anion gap [Moles/Vol] 12 mmol/L Normal 7-[address] [facility] Comment on above: Performed By: #### L [id number] ####[facility] ([facility])[address] [place] [address] Calcium [Mass/Vol] 8.2 mg/dL Low 8.6-10.3 [facility] Comment on above: Performed By: #### L [id number] ####[facility] ([facility])[address] [place] [address] Chloride [Moles/Vol] 107 mmol/L Normal 98-[address] [facility] Comment on above: Performed By: #### L [id number] ####[facility] ([facility])[address] [place], [place] [address] CO2 [Moles/Vol] 22 mmol/L Normal 21-31 [facility] Comment on above: Performed By: #### L [id number] ####[facility] ([facility])[address] [place] [address] Creatinine [Mass/Vol] 0.98 mg/dL Normal 0.70-1.[address] [facility] Comment on above: Performed By: #### L [id number] ####[facility] ([facility])[address] [place] [address] GLOMERULAR FILTRATION RATE ML/MIN/1.73 SQ M.PREDICTED 83.0 mL/min/1.73m*2 Normal >60.[address] [facility] Comment on above: Result Comment: [facility]???s estimated glomerular filtration rate (eGFR) will [...] of individuals. Performed By: #### L [id number] ####[facility] ([facility])[address] [place] [address] Glucose [Mass/Vol] 172 mg/dL High 70-100 [facility] Comment on above: Performed By: #### L [id number] ####[facility] ([facility])[address] [place] [address] Potassium [Moles/Vol] 3.7 mmol/L Normal 3.5-5.[address] [facility] Comment on above: Performed By: #### L [id number] ####[facility] ([facility])[address] [place] [address] Sodium [Moles/Vol] 137 mmol/L Normal 136-145 [facility] Comment on above: Performed By: #### L [id number] ####[facility] ([facility])[address] [place] [address] Urea nitrogen [Mass/Vol] 14 mg/dL Normal 7-[address] [facility] Comment on above: Performed By: #### L [id number] ####[facility] ([facility])[address] [place] [address] UREA NITROGEN/CREATININ E (MASS RATIO) IN SER/PLAS 14.[address] [facility] Comment on above: Performed By: #### L [id number] ####[facility] ([facility])[address] [place] [address] CBCon 02-01-2024 Erythrocyte distribution width (RBC) [Ratio] 13.5 % Normal 11.5-15.[address] [facility] Comment on above: Performed By: #### L [id number] ####[facility] ([facility])[address] [place] [address] ERYTHROCYTE MEAN CORPUSCULAR HEMOGLOBIN CONCENTRATION (G/DL) BY AUTOMATED 34.3 g/dL Normal 32.0-35.[address] [facility] Comment on above: Performed By: #### L [id number] ####[facility] ([facility])[address] [place] [address] Hematocrit (Bld) [Volume fraction] 34.1 % Low 39.0-55.[address] [facility] Comment on above: Performed By: #### L [id number] ####[facility] ([facility])[address] [place] [address] Hemoglobin (Bld) [Mass/Vol] 11.7 g/dL Low 13.0-17.[address] [facility] Comment on above: Performed By: #### L [id number] ####[facility] ([facility])[address] [place] [address] MCH (RBC) [Entitic mass] 30.9 pg Normal 27.0-33.[address] [facility] Comment on above: Performed By: #### L [id number] ####[facility] ([facility])[address] [place] [address] MCV (RBC) [Entitic vol] 90.0 fL Normal 82.0-98.[address] [facility] Comment on above: Performed By: #### L [id number] ####[facility] ([facility])[address] [place] [address] PLATELETS (10*3/UL) IN BLOOD AUTOMATED COUNT 204 10*3/uL Normal 150-[address] [facility] Comment on above: Performed By: #### L [id number] ####[facility] ([facility])[address] [place] [address] RBC (Bld) [#/Vol] 3.79 10*6/uL Low 4.20-5.70 [facility] Comment on above: Performed By: #### L [id number] ####[facility] ([facility])[address] [place] [address] WBC (Bld) [#/Vol] 8.80 10*3/uL Normal 4.00-10.60 [facility] Comment on above: Performed By: #### L [id number] ####[facility] ([facility])[address] [place] [address] HPon 02-01-[address] [facility] MAGNESIUMon 02-01-2024 Magnesium [Mass/Vol] 1.6 mg/dL Low 1.9-2.[address] [facility] Comment on above: Performed By: #### L [id number] ####[facility] ([facility])[address] [place] [address] PHOSPHORUSon 02-01-2024 Magnesium [Mass/Vol] 3.5 mg/dL Normal 2.5-5.[address] [facility] Comment on above: Performed By: #### L [id number] ####[facility] ([facility])[address] [place] [address] POCT GLUCOSE METER UNSOLICIT ED RESULTSon 02-01-2024 Glucose [Mass/Vol] 113 mg/dL High 70-105 [facility] Comment on above: Order Comment: Waive d Testing in the ED is performed under the ED CLIA certificate #[id number]. Result Comment: anau Performed By: #### L [id number] ####[facility] ([facility])[address] [place] [address] Glucose [Mass/Vol] 116 mg/dL High 70-105 [facility] Comment on above: Order Comment: Waive d Testing in the ED is performed under the ED CLIA certificate #[id number]. Result Comment: rbar ero Performed By: #### L [id number] ####[facility] ([facility])[address] [place] [address] Glucose [Mass/Vol] 148 mg/dL High 70-105 [facility] Comment on above: Order Comment: Waive d Testing in the ED is performed under the ED CLIA certificate #[id number]. Result Comment: rbar ero Performed By: #### L [id number] ####[facility] ([facility])[address] [place] [address] Glucose [Mass/Vol] 132 mg/dL High 70-105 [facility] Comment on above: Order Comment: Waive d Testing in the ED is performed under the ED CLIA certificate #[id number]. Result Comment: oyod er Performed By: #### L [id number] ####[facility] ([facility])[address] [place] [address] TROPONIN Ion 02-01-2024 Troponin I.cardiac [Mass/Vol] 10.87 ng/mL Critically high 0.00-0.[address] [facility] Comment on above: Result Comment: M-UT EVIOUS CRITICAL RESULTPrevious result verified on 02/01/2024130 on specimen/case [id number] called with component Troponin I for procedure Troponin I with value 0.19 ng/mL. Performed By: #### L [id number] ####[facility] ([facility])[address] [place] [address] Troponin I.cardiac [Mass/Vol] 7.31 ng/mL Critically high 0.00-0.[address] [facility] Comment on above: Result Comment: Prev ious result verified on 02/01/2024130 on specimen/case [id number] called with component Troponin I for procedure Troponin I with value 0.19 ng/mL. Performed By: #### L [id number] ####[facility] ([facility])[address] [place] [address] Troponin I.cardiac [Mass/Vol] 3.46 ng/mL Critically high 0.00-0.[address] [facility] Comment on above: Result Comment: M-UT EVIOUS CRITICAL RESULTPrevious result verified on 02/01/2024130 on specimen/case [id number] called with component Troponin I for procedure Troponin I with value 0.19 ng/mL. Performed By: #### L [id number] ####[facility] ([facility])[address] [facility] [address] 30on 01-31-[address] [facility] 30 The patient is Moder ately Stable - Low risk of patient condition declining or worsening The patient's goals for the shift include comfort, rest The clinical goals for the shift include VSS Normal [facility] ANESon 01-31-[address] [facility] ANTI-XA (HEPARIN LEVEL)on HEPARIN UNFRACTIONATED (U/ML) IN PPP BY CHROMOGENIC METHOD 0.47 IU/mL Normal 0.3-0.[address] [facility] Comment on above: Order Comment: Check anti-Xa level every 6 hours while on heparin infusion, or per protocol. Performed By: #### L [id number] ####[facility] ([facility])[address] [place] [address] CBCon 01-31-2024 Erythrocyte distribution width (RBC) [Ratio] 13.5 % Normal 11.5-15.[address] [facility] Comment on above: Performed By: #### L [id number] ####[facility] ([facility])[address] [place] [address] ERYTHROCYTE MEAN CORPUSCULAR HEMOGLOBIN CONCENTRATION (G/DL) BY AUTOMATED 33.6 g/dL Normal 32.0-35.[address] [facility] Comment on above: Performed By: #### L [id number] ####[facility] ([facility])[address] [place] [address] Hematocrit (Bld) [Volume fraction] 42.5 % Normal 39.0-55.[address] [facility] Comment on above: Performed By: #### L [id number] ####[facility] ([facility])[address] [place] [address] Hemoglobin (Bld) [Mass/Vol] 14.3 g/dL Normal 13.0-17.[address] [facility] Comment on above: Performed By: #### L [id number] ####[facility] ([facility])[address] [place] [address] MCH (RBC) [Entitic mass] 31.2 pg Normal 27.0-33.[address] [facility] Comment on above: Performed By: #### L [id number] ####[facility] ([facility])[address] [place] [address] MCV (RBC) [Entitic vol] 92.6 fL Normal 82.0-98.[address] [facility] Comment on above: Performed By: #### L [id number] ####[facility] ([facility])[address] [place] [address] PLATELETS (10*3/UL) IN BLOOD AUTOMATED COUNT 238 10*3/uL Normal 150-[address] [facility] Comment on above: Performed By: #### L [id number] ####[facility] ([facility])[address] [place] [address] RBC (Bld) [#/Vol] 4.59 10*6/uL Normal 4.20-5.70 [facility] Comment on above: Performed By: #### L [id number] ####[facility] ([facility])[address] [place] [address] WBC (Bld) [#/Vol] 11.16 10*3/uL High 4.00-10.60 [facility] Comment on above: Performed By: #### L [id number] ####[facility] ([facility])[address] [place] [address] Erythrocyte distribution width (RBC) [Ratio] 13.5 % Normal 11.5-15.[address] [facility] Comment on above: Performed By: #### L [id number] ####[facility] ([facility])[address] [place] [address] ERYTHROCYTE MEAN CORPUSCULAR HEMOGLOBIN CONCENTRATION (G/DL) BY AUTOMATED 34.0 g/dL Normal 32.0-35.[address] [facility] Comment on above: Performed By: #### L [id number] ####[facility] ([facility])[address] [place] [address] Hematocrit (Bld) [Volume fraction] 36.8 % Low 39.0-55.[address] [facility] Comment on above: Performed By: #### L [id number] ####[facility] ([facility])[address] [place] [address] Hemoglobin (Bld) [Mass/Vol] 12.5 g/dL Low 13.0-17.[address] [facility] Comment on above: Performed By: #### L [id number] ####[facility] ([facility])[address] [place] [address] MCH (RBC) [Entitic mass] 31.2 pg Normal 27.0-33.[address] [facility] Comment on above: Performed By: #### L [id number] ####[facility] ([facility])[address] [place] [address] MCV (RBC) [Entitic vol] 91.8 fL Normal 82.0-98.[address] [facility] Comment on above: Performed By: #### L [id number] ####[facility] ([facility])[address] [place] [address] PLATELETS (10*3/UL) IN BLOOD AUTOMATED COUNT 204 10*3/uL Normal 150-[address] [facility] Comment on above: Performed By: #### L [id number] ####[facility] ([facility])[address] [place] [address] RBC (Bld) [#/Vol] 4.01 10*6/uL Low 4.20-5.70 [facility] Comment on above: Performed By: #### L [id number] ####[facility] ([facility])[address] [place] [address] WBC (Bld) [#/Vol] 6.54 10*3/uL Normal 4.00-10.60 [facility] Comment on above: Performed By: #### L [id number] ####[facility] ([facility])[address] [place] [address] CONSULTon 01-31-[address] [facility] HPon 01-31-[address] [facility] HP Normal [facility] MAGNESIUMon 01-31-2024 Magnesium [Mass/Vol] 1.6 mg/dL Low 1.9-2.[address] [facility] Comment on above: Performed By: #### L [id number] ####[facility] ([facility])[address] [place] [address] NURSNOTEon 01-31-[address] [facility] TROPONIN Ion 01-31-2024 Troponin I.cardiac [Mass/Vol] 0.19 ng/mL Critically high 0.00-0.[address] [facility] Comment on above: Result Comment: JYOTI CORONADO INITIAL CRITICAL HIGH; RESPUN AND RETESTED Performed By: #### L [id number] ####[facility] ([facility])[address] [place] [address] Troponin I.cardiac [Mass/Vol] 0.05 ng/mL High 0.00-0.[address] [facility] Comment on above: Performed By: #### L [id number] ####[facility] ([facility])[address] [place] [address] Troponin I.cardiac [Mass/Vol] 0.04 ng/mL Normal 0.00-0.[address] [facility] Comment on above: Performed By: #### L [id number] ####[facility] ([facility])[address] [place] [address] 30on 01-30-[address] [facility] [address] [facility] 30 The patient is Moder ately Stable - Low risk of patient condition declining or worsening The patient's goals for the shift include comfort, rest The clinical goals for the shift include VSS Normal [facility] ANTI-XA (HEPARIN LEVEL)on HEPARIN UNFRACTIONATED (U/ML) IN PPP BY CHROMOGENIC METHOD 0.32 IU/mL Normal 0.3-0.[address] [facility] Comment on above: Order Comment: Check anti-Xa level every 6 hours while on heparin infusion, or per protocol. Result Comment: [place] roxaban and Apixaban will interfere with the anti Xa assay used to monitor UFH and LMWH. Performed By: #### L [id number] ####[facility] ([facility])[address] [place] [address] HEPARIN UNFRACTIONATED (U/ML) IN PPP BY CHROMOGENIC METHOD 0.32 IU/mL Normal 0.3-0.[address] [facility] Comment on above: Order Comment: Check anti-Xa level every 6 hours while on heparin infusion, or per protocol. Result Comment: [place] roxaban and Apixaban will interfere with the anti Xa assay used to monitor UFH and LMWH. Performed By: #### L [id number] ####[facility] ([facility])[address] [place] [address] HEPARIN UNFRACTIONATED (U/ML) IN PPP BY CHROMOGENIC METHOD 0.19 IU/mL Low 0.3-0.[address] [facility] Comment on above: Order Comment: Check anti-Xa level every 6 hours while on heparin infusion, or per protocol. Result Comment: [place] roxaban and Apixaban will interfere with the anti Xa assay used to monitor UFH and LMWH. Performed By: #### L [id number] ####[facility] ([facility])[address] [place] [address] APTTon 01-30-2024 ACTIVATED PARTIAL THROMBOPLASTIN TIME IN PPP BY COAGULATION ASSAY 33.6 Seconds Normal 25.0-35.[address] [facility] Comment on above: Order Comment: Basel ine aPTT before initiating heparin infusion. Result Comment: Clin ical significance of the APTT is questionable in the presence of heparin. Performed By: #### L [id number] ####[facility] ([facility])[address] [place] [address] CBC WITH AUTO DIFFERENTIALon 01-30-2024 Basophils (Bld) [#/Vol] 0.03 10*3/uL Normal 0.00-0.[address] [facility] Comment on above: Performed By: #### L [id number] ####[facility] ([facility])[address] [place] [address] Basophils/100 WBC (Bld) 0.4 % Normal 0.0-1.[address] [facility] Comment on above: Performed By: #### L [id number] ####[facility] ([facility])[address] [place] [address] Eosinophils (Bld) [#/Vol] 0.04 10*3/uL Normal 0.00-0.[address] [facility] Comment on above: Performed By: #### L [id number] ####[facility] ([facility])[address] [place] [address] Eosinophils/100 WBC (Bld) 0.6 % Normal 0.0-6.[address] [facility] Comment on above: Performed By: #### L [id number] ####[facility] ([facility])[address] [place] [address] Erythrocyte distribution width (RBC) [Ratio] 13.4 % Normal 11.5-15.[address] [facility] Comment on above: Performed By: #### L [id number] ####[facility] ([facility])[address] [place] [address] ERYTHROCYTE MEAN CORPUSCULAR HEMOGLOBIN CONCENTRATION (G/DL) BY AUTOMATED 33.5 g/dL Normal 32.0-35.[address] [facility] Comment on above: Performed By: #### L [id number] ####[facility] ([facility])[address] [place] [address] Hematocrit (Bld) [Volume fraction] 37.6 % Low 39.0-55.[address] [facility] Comment on above: Performed By: #### L [id number] ####[facility] ([facility])[address] [place] [address] Hemoglobin (Bld) [Mass/Vol] 12.6 g/dL Low 13.0-17.[address] [facility] Comment on above: Performed By: #### L [id number] ####[facility] ([facility])[address] [place] [address] Immature granulocytes (Bld) [#/Vol] 0.02 10*3/uL Normal 0.00-0.[address] [facility] Comment on above: Performed By: #### L [id number] ####[facility] ([facility])[address] [place] [address] Immature granulocytes/100 WBC (Bld) 0.3 % Normal 0.0-1.[address] [facility] Comment on above: Performed By: #### L [id number] ####[facility] ([facility])[address] [place] [address] Lymphocytes (Bld) [#/Vol] 2.45 10*3/uL Normal 1.20-4.[address] [facility] Comment on above: Performed By: #### L [id number] ####[facility] ([facility])[address] [place] [address] Lymphocytes/100 WBC (Bld) 35.6 % Normal 20.0-45.[address] [facility] Comment on above: Performed By: #### L [id number] ####[facility] ([facility])[address] [place] [address] MCH (RBC) [Entitic mass] 31.1 pg Normal 27.0-33.[address] [facility] Comment on above: Performed By: #### L [id number] ####[facility] ([facility])[address] [place] [address] MCV (RBC) [Entitic vol] 92.8 fL Normal 82.0-98.[address] [facility] Comment on above: Performed By: #### L [id number] ####[facility] ([facility])[address] [place] [address] Monocytes (Bld) [#/Vol] 0.55 10*3/uL Normal 0.10-1.[address] [facility] Comment on above: Performed By: #### L [id number] ####[facility] ([facility])[address] [place] [address] Monocytes/100 WBC (Bld) 8.0 % Normal 5.0-12.[address] [facility] Comment on above: Performed By: #### L [id number] ####[facility] ([facility])[address] [place] [address] Neutrophils (Bld) [#/Vol] 3.79 10*3/uL Normal 1.60-7.[address] [facility] Comment on above: Performed By: #### L [id number] ####[facility] ([facility])[address] [place] [address] Neutrophils/100 WBC (Bld) 55.1 % Normal 40.0-72.[address] [facility] Comment on above: Performed By: #### L [id number] ####[facility] ([facility])[address] [place] [address] NRBC (PER 100 WBCS) BY AUTOMATED COUNT 0.0 % Normal [address] [facility] Comment on above: Performed By: #### L [id number] ####[facility] ([facility])[address] [address] PLATELETS (10*3/UL) IN BLOOD AUTOMATED COUNT 208 10*3/uL Normal 150-[address] [facility] Comment on above: Performed By: #### L [id number] ####[facility] ([facility])[address] [place] [address] RBC (Bld) [#/Vol] 4.05 10*6/uL Low 4.20-5.70 [facility] Comment on above: Performed By: #### L [id number] ####[facility] ([facility])[address] [place] [address] WBC (Bld) [#/Vol] 6.88 10*3/uL Normal 4.00-10.60 [facility] Comment on above: Performed By: #### L [id number] ####[facility] ([facility])[address] [place] [address] COMPREHENSIVE METABOLIC PANE Roddy 01-30-2024 Albumin [Mass/Vol] 3.4 g/dL Low 3.5-5.7 [facility] Comment on above: Performed By: #### L [id number] ####[facility] ([facility])[address] [place] [address] ALP [Catalytic activity/Vol] 113 U/L High 34-[address] [facility] Comment on above: Performed By: #### L [id number] ####[facility] ([facility])[address] [place] [address] ALT [Catalytic activity/Vol] 7 U/L Normal 7-[address] [facility] Comment on above: Performed By: #### L [id number] ####[facility] ([facility])[address] [place] [address] Anion gap [Moles/Vol] 11 mmol/L Normal 7-[address] [facility] Comment on above: Performed By: #### L [id number] ####[facility] ([facility])[address] [place] [address] AST [Catalytic activity/Vol] 13 U/L Normal 13-[address] [facility] Comment on above: Performed By: #### L [id number] ####[facility] ([facility])[address] [place] [address] Bilirubin [Mass/Vol] 0.3 mg/dL Normal 0.3-1.[address] [facility] Comment on above: Performed By: #### L [id number] ####[facility] ([facility])[address] [place] [address] Calcium [Mass/Vol] 8.4 mg/dL Low 8.6-10.3 [facility] Comment on above: Performed By: #### L [id number] ####[facility] ([facility])[address] [place] [address] Chloride [Moles/Vol] 109 mmol/L High 98-[address] [facility] Comment on above: Performed By: #### L [id number] ####[facility] ([facility])[address] [place] [address] CO2 [Moles/Vol] 22 mmol/L Normal 21-31 [facility] Comment on above: Performed By: #### L [id number] ####[facility] ([facility])[address] [place] [address] Creatinine [Mass/Vol] 0.83 mg/dL Normal 0.70-1.[address] [facility] Comment on above: Performed By: #### L [id number] ####[facility] ([facility])[address] [place] [address] GLOMERULAR FILTRATION RATE ML/MIN/1.73 SQ M.PREDICTED 94.2 mL/min/1.73m*2 Normal >60.[address] [facility] Comment on above: Result Comment: [facility]???s estimated glomerular filtration rate (eGFR) will [...] of individuals. Performed By: #### L [id number] ####[facility] ([facility])[address] [place] [address] Glucose [Mass/Vol] 128 mg/dL High 70-100 [facility] Comment on above: Performed By: #### L [id number] ####[facility] ([facility])[address] [place] [address] Potassium [Moles/Vol] 3.6 mmol/L Normal 3.5-5.[address] [facility] Comment on above: Performed By: #### L [id number] ####[facility] ([facility])[address] [place] [address] Protein [Mass/Vol] 5.9 g/dL Low 6.0-8.3 [facility] Comment on above: Performed By: #### L [id number] ####[facility] ([facility])[address] [place] [address] Sodium [Moles/Vol] 138 mmol/L Normal 136-145 [facility] Comment on above: Performed By: #### L [id number] ####[facility] ([facility])[address] [place] [address] Urea nitrogen [Mass/Vol] 11 mg/dL Normal 7-[address] [facility] Comment on above: Performed By: #### L [id number] ####[facility] ([facility])[address] [place] [address] UREA NITROGEN/CREATININ E (MASS RATIO) IN SER/PLAS 13.[address] [facility] Comment on above: Performed By: #### L [id number] ####[facility] ([facility])[address] [address] HPon 01-30-[address] [facility] MAGNESIUMon 01-30-2024 Magnesium [Mass/Vol] 1.6 mg/dL Low 1.9-2.[address] [facility] Comment on above: Performed By: #### L [id number] ####[facility] ([facility])[address] [place] [address] Follow-Upon 11-07-2023 Follow-Up Normal [facility] Telemedicineon 10-03-[address] [facility] CT CHEST WO IV CONTRASTon CT CHEST WO IV CONTRAST Normal [facility] 30on 09-04-[address] [facility] BASIC METABOLIC PANELon 08-16 Anion gap [Moles/Vol] 8 mmol/L Normal 7-[address] [facility] Comment on above: Performed By: #### L [id number] ####[facility] ([facility])[address] [place] [address] Calcium [Mass/Vol] 8.9 mg/dL Normal 8.6-10.3 [facility] Comment on above: Performed By: #### L [id number] ####[facility] ([facility])[address] [place] [address] Chloride [Moles/Vol] 109 mmol/L High 98-[address] [facility] Comment on above: Performed By: #### L [id number] ####[facility] ([facility])[address] [place] [address] CO2 [Moles/Vol] 24 mmol/L Normal 21-31 [facility] Comment on above: Performed By: #### L [id number] ####[facility] ([facility])[address] [place] [address] Creatinine [Mass/Vol] 0.86 mg/dL Normal 0.70-1.[address] [facility] Comment on above: Performed By: #### L [id number] ####[facility] ([facility])[address] [place] [address] GLOMERULAR FILTRATION RATE ML/MIN/1.73 SQ M.PREDICTED 93.7 mL/min/1.73m*2 Normal >60.[address] [facility] Comment on above: Result Comment: [facility]???s estimated glomerular filtration rate (eGFR) will [...] of individuals. Performed By: #### L [id number] ####[facility] ([facility])[address] [place] [address] Glucose [Mass/Vol] 109 mg/dL High 70-100 [facility] Comment on above: Performed By: #### L [id number] ####[facility] ([facility])[address] [place] [address] Potassium [Moles/Vol] 3.9 mmol/L Normal 3.5-5.[address] [facility] Comment on above: Performed By: #### L [id number] ####[facility] ([facility])[address] [place] [address] Sodium [Moles/Vol] 137 mmol/L Normal 136-145 [facility] Comment on above: Performed By: #### L [id number] ####[facility] ([facility])[address] [place] [address] Urea nitrogen [Mass/Vol] 17 mg/dL Normal 7-[address] [facility] Comment on above: Performed By: #### L [id number] ####[facility] ([facility])[address] [place] [address] UREA NITROGEN/CREATININ E (MASS RATIO) IN SER/PLAS 19.8 [facility] Comment on above: Performed By: #### L [id number] ####[facility] ([facility])[address] [place] [address] DSon 09-04-2023 DS [facility] MAGNESIUMon 09-04-2023 Magnesium [Mass/Vol] 1.8 mg/dL Low 1.9-2.[address] [facility] Comment on above: Performed By: #### L [id number] ####[facility] ([facility])[address] [place] [address] NURSNOTEon 09-04-2023 NURSNOTE [employer] Supervisor reviewed disc harge instructions with patient and his spouse. [employer] Supervisor reviewed new medications and when to administer with patient and his spouse. [employer] Supervisor then transported patient via wheelchair to main entrance with all personal belongings. [facility] NURSNOTE [facility] NURSNOTE Patient returned to unit. [facility] NURSNOTE Patient off unit for testing. Normal [facility] TROPONIN Ion 09-04-2023 Troponin I.cardiac [Mass/Vol] 0.04 ng/mL Normal 0.00-0.[address] [facility] Comment on above: Performed By: #### L [id number] ####[facility] ([facility])[address] [place] [address] [id number] 09-03-2023 [id number] [facility] 30on 09-03-[address] [facility] [address] [facility] ANESon 09-03-[address] [facility] ANES [facility] BASIC METABOLIC PANELon 08-15 Anion gap [Moles/Vol] 10 mmol/L Normal 01-[address] [facility] Comment on above: Performed By: #### L [id number] ####[facility] ([facility])[address] [place] [address] Calcium [Mass/Vol] 8.9 mg/dL Normal 8.6-10.3 [facility] Comment on above: Performed By: #### L [id number] ####[facility] ([facility])[address] [place] [address] Chloride [Moles/Vol] 106 mmol/L Normal 98-[address] [facility] Comment on above: Performed By: #### L [id number] ####[facility] ([facility])[address] [place] [address] CO2 [Moles/Vol] 24 mmol/L Normal 21-31 [facility] Comment on above: Performed By: #### L [id number] ####[facility] ([facility])[address] [place] [address] Creatinine [Mass/Vol] 1.14 mg/dL Normal 0.70-1.[address] [facility] Comment on above: Performed By: #### L [id number] ####[facility] ([facility])[address] [place] [address] GLOMERULAR FILTRATION RATE ML/MIN/1.73 SQ M.PREDICTED 69.6 mL/min/1.73m*2 Normal >60.[address] [facility] Comment on above: Result Comment: [facility]???s estimated glomerular filtration rate (eGFR) will [...] of individuals. Performed By: #### L [id number] ####[facility] ([facility])[address] [place] [address] Glucose [Mass/Vol] 107 mg/dL High 70-100 [facility] Comment on above: Performed By: #### L [id number] ####[facility] ([facility])[address] [place] [address] Potassium [Moles/Vol] 4.0 mmol/L Normal 3.5-5.[address] [facility] Comment on above: Performed By: #### L [id number] ####[facility] ([facility])[address] [place] [address] Sodium [Moles/Vol] 136 mmol/L Normal 136-145 [facility] Comment on above: Performed By: #### L [id number] ####[facility] ([facility])[address] [place] [address] Urea nitrogen [Mass/Vol] 23 mg/dL Normal 7-[address] [facility] Comment on above: Performed By: #### L [id number] ####[facility] ([facility])[address] [place] [address] UREA NITROGEN/CREATININ E (MASS RATIO) IN SER/PLAS 20.[address] [facility] Comment on above: Performed By: #### L [id number] ####[facility] ([facility])[address] [place] [address] CBCon 09-03-2023 Erythrocyte distribution width (RBC) [Ratio] 13.9 % Normal 11.5-15.[address] [facility] Comment on above: Performed By: #### L [id number] ####[facility] ([facility])[address] [place] [address] ERYTHROCYTE MEAN CORPUSCULAR HEMOGLOBIN CONCENTRATION (G/DL) BY AUTOMATED 34.1 g/dL Normal 32.0-35.[address] [facility] Comment on above: Performed By: #### L [id number] ####[facility] ([facility])[address] [place] [address] Hematocrit (Bld) [Volume fraction] 39.3 % Normal 39.0-55.[address] [facility] Comment on above: Performed By: #### L [id number] ####[facility] ([facility])[address] [place] [address] Hemoglobin (Bld) [Mass/Vol] 13.4 g/dL Normal 13.0-17.[address] [facility] Comment on above: Performed By: #### L [id number] ####[facility] ([facility])[address] [place] [address] MCH (RBC) [Entitic mass] 29.3 pg Normal 27.0-33.[address] [facility] Comment on above: Performed By: #### L [id number] ####[facility] ([facility])[address] [place] [address] MCV (RBC) [Entitic vol] 86.0 fL Normal 82.0-98.[address] [facility] Comment on above: Performed By: #### L [id number] ####[facility] ([facility])[address] [place] [address] PLATELETS (10*3/UL) IN BLOOD AUTOMATED COUNT 203 10*3/uL Normal 150-[address] [facility] Comment on above: Performed By: #### L [id number] ####[facility] ([facility])[address] [place] [address] RBC (Bld) [#/Vol] 4.57 10*6/uL Normal 4.20-5.70 [facility] Comment on above: Performed By: #### L [id number] ####[facility] ([facility])[address] [place] [address] WBC (Bld) [#/Vol] 7.63 10*3/uL Normal 4.00-10.60 [facility] Comment on above: Performed By: #### L [id number] ####[facility] ([facility])[address] [place] [address] CONSULTon 09-03-[address] [facility] HEPATIC FUNCTION PANELon Albumin [Mass/Vol] 3.8 g/dL Normal 3.5-5.7 [facility] Comment on above: Performed By: #### L [id number] ####[facility] ([facility])[address] [place] [address] ALP [Catalytic activity/Vol] 110 U/L High 34-[address] [facility] Comment on above: Performed By: #### L [id number] ####[facility] ([facility])[address] [place] [address] ALT [Catalytic activity/Vol] 10 U/L Normal 7-[address] [facility] Comment on above: Performed By: #### L [id number] ####[facility] ([facility])[address] [place] [address] AST [Catalytic activity/Vol] 14 U/L Normal 13-[address] [facility] Comment on above: Performed By: #### L [id number] ####[facility] ([facility])[address] [place] [address] Bilirubin [Mass/Vol] 0.4 mg/dL Normal 0.3-1.[address] [facility] Comment on above: Performed By: #### L [id number] ####[facility] ([facility])[address] [place] [address] Magnesium [Mass/Vol] 0.1 mg/dL Normal 0-0.[address] [facility] Comment on above: Performed By: #### L [id number] ####[facility] ([facility])[address] [place] [address] Protein [Mass/Vol] 6.3 g/dL Normal 6.0-8.3 [facility] Comment on above: Performed By: #### L [id number] ####[facility] ([facility])[address] [place] [address] 30on 09-02-[address] [facility] [address] [facility] [address] [facility] ANTI-XA (HEPARIN LEVEL)on HEPARIN UNFRACTIONATED (U/ML) IN PPP BY CHROMOGENIC METHOD 0.40 IU/mL Normal 0.3-0.[address] [facility] Comment on above: Order Comment: Check anti-Xa level every 6 hours while on heparin infusion, or per protocol. Result Comment: Blanca roxaban and Apixaban will interfere with the anti Xa assay used to monitor UFH and LMWH. Performed By: #### L [id number] ####[facility] ([facility])[address] [place] [address] HEPARIN UNFRACTIONATED (U/ML) IN PPP BY CHROMOGENIC METHOD 0.56 IU/mL Normal 0.3-0.[address] [facility] Comment on above: Order Comment: Check anti-Xa level every 6 hours while on heparin infusion, or per protocol. Result Comment: Blanca roxaban and Apixaban will interfere with the anti Xa assay used to monitor UFH and LMWH. Performed By: #### L [id number] ####[facility] ([facility])[address] [facility] [address] APTTon 09-02-2023 ACTIVATED PARTIAL THROMBOPLASTIN TIME IN PPP BY COAGULATION ASSAY 35.0 Seconds Normal 25.0-35.[address] [facility] Comment on above: Result Comment: Clin ical significance of the APTT is questionable in the presence of heparin. Performed By: #### L [id number] ####[facility] ([facility])[address] [place] [address] BASIC METABOLIC PANELon 08-15 Anion gap [Moles/Vol] 10 mmol/L Normal 7-[address] [facility] Comment on above: Performed By: #### L [id number] ####[facility] ([facility])[address] [facility] [address] Calcium [Mass/Vol] 8.9 mg/dL Normal 8.6-10.3 [facility] Comment on above: Performed By: #### L [id number] ####[facility] ([facility])[address] [place] [address] Chloride [Moles/Vol] 107 mmol/L Normal 98-[address] [facility] Comment on above: Performed By: #### L [id number] ####[facility] ([facility])[address] [place] [address] CO2 [Moles/Vol] 21 mmol/L Normal 21-31 [facility] Comment on above: Performed By: #### L [id number] ####[facility] ([facility])[address] [place] [address] Creatinine [Mass/Vol] 0.99 mg/dL Normal 0.70-1.[address] [facility] Comment on above: Performed By: #### L [id number] ####[facility] ([facility])[address] [place] [address] GLOMERULAR FILTRATION RATE ML/MIN/1.73 SQ M.PREDICTED 82.5 mL/min/1.73m*2 Normal >60.[address] [facility] Comment on above: Result Comment: [facility]???s estimated glomerular filtration rate (eGFR) will [...] of individuals. Performed By: #### L [id number] ####[facility] ([facility])[address] [place] [address] Glucose [Mass/Vol] 176 mg/dL High 70-100 [facility] Comment on above: Performed By: #### L [id number] ####[facility] ([facility])[address] [place] [address] Potassium [Moles/Vol] 3.8 mmol/L Normal 3.5-5.[address] [facility] Comment on above: Performed By: #### L [id number] ####[facility] ([facility])[address] [place] [address] Sodium [Moles/Vol] 134 mmol/L Low 136-145 [facility] Comment on above: Performed By: #### L [id number] ####[facility] ([facility])[address] [place] [address] Urea nitrogen [Mass/Vol] 20 mg/dL Normal 7-[address] [facility] Comment on above: Performed By: #### L [id number] ####[facility] ([facility])[address] [place] [address] UREA NITROGEN/CREATININ E (MASS RATIO) IN SER/PLAS 20.[address] [facility] Comment on above: Performed By: #### L [id number] ####[facility] ([facility])[address] [place] [address] CBCon 09-02-2023 Erythrocyte distribution width (RBC) [Ratio] 14.1 % Normal 11.5-15.[address] [facility] Comment on above: Performed By: #### L [id number] ####[facility] ([facility])[address] [place] [address] ERYTHROCYTE MEAN CORPUSCULAR HEMOGLOBIN CONCENTRATION (G/DL) BY AUTOMATED 34.7 g/dL Normal 32.0-35.[address] [facility] Comment on above: Performed By: #### L [id number] ####[facility] ([facility])[address] [place] [address] Hematocrit (Bld) [Volume fraction] 40.6 % Normal 39.0-55.[address] [facility] Comment on above: Performed By: #### L [id number] ####[facility] ([facility])[address] [place] [address] Hemoglobin (Bld) [Mass/Vol] 14.1 g/dL Normal 13.0-17.[address] [facility] Comment on above: Performed By: #### L [id number] ####[facility] ([facility])[address] [place] [address] MCH (RBC) [Entitic mass] 29.6 pg Normal 27.0-33.[address] [facility] Comment on above: Performed By: #### L [id number] ####[facility] ([facility])[address] [place] [address] MCV (RBC) [Entitic vol] 85.3 fL Normal 82.0-98.[address] [facility] Comment on above: Performed By: #### L [id number] ####[facility] ([facility])[address] [place] [address] PLATELETS (10*3/UL) IN BLOOD AUTOMATED COUNT 215 10*3/uL Normal 150-[address] [facility] Comment on above: Performed By: #### L [id number] ####[facility] ([facility])[address] [place] [address] RBC (Bld) [#/Vol] 4.76 10*6/uL Normal 4.20-5.70 [facility] Comment on above: Performed By: #### L [id number] ####[facility] ([facility])[address] [place] [address] WBC (Bld) [#/Vol] 7.77 10*3/uL Normal 4.00-10.60 [facility] Comment on above: Performed By: #### L [id number] ####[facility] ([facility])[address] [place] [address] CONSULTon 09-02-[address] [facility] MAGNESIUMon 09-02-2023 Magnesium [Mass/Vol] 1.7 mg/dL Low 1.9-2.[address] [facility] Comment on above: Performed By: #### L [id number] ####[facility] ([facility])[address] [place] [address] PHOSPHORUSon 09-02-2023 Magnesium [Mass/Vol] 3.3 mg/dL Normal 2.5-5.[address] [facility] Comment on above: Performed By: #### L [id number] ####[facility] ([facility])[address] [place] [address] POCT GLUCOSE METER UNSOLICIT ED RESULTSon 09-02-2023 Glucose [Mass/Vol] 97 mg/dL Normal 70-105 [facility] Comment on above: Order Comment: Waive d Testing in the ED is performed under the ED CLIA certificate #[id number]. Result Comment: [email or web address] cody Performed By: #### L [id number] ####[facility] ([facility])[address] [place] [address] Glucose [Mass/Vol] 117 mg/dL High 70-105 [facility] Comment on above: Order Comment: Waive d Testing in the ED is performed under the ED CLIA certificate #[id number]. Result Comment: [email or web address] [email or web address] Performed By: #### L [id number] ####[facility] ([facility])[address] [place] [address] Glucose [Mass/Vol] 145 mg/dL High 70-105 [facility] Comment on above: Order Comment: Waive d Testing in the ED is performed under the ED CLIA certificate #[id number]. Result Comment: [email or web address] [email or web address] Performed By: #### L [id number] ####[facility] ([facility])[address] [place] [address] Glucose [Mass/Vol] 151 mg/dL High 70-105 [facility] Comment on above: Order Comment: Waive d Testing in the ED is performed under the ED CLIA certificate #[id number]. Result Comment: [email or web address] [email or web address] Performed By: #### L [id number] ####[facility] ([facility])[address] [place] [address] PROTIME-INRon 09-02-2023 INR IN PPP BY COAGULATION ASSAY 1.09 Normal 0.90-1.[address] [facility] Comment on above: Result Comment: ACCC [...] By: #### L [id number] ####[facility] ([facility])[address] [place] [address] PROTHROMBIN TIME (PT) IN PPP BY COAGULATION ASSAY 14.2 Seconds Normal 12.3-14.[address] [facility] Comment on above: Performed By: #### L [id number] ####[facility] ([facility])[address] [place] [address] TROPONIN Ion 09-02-2023 Troponin I.cardiac [Mass/Vol] 0.06 ng/mL High 0.00-0.[address] [facility] Comment on above: Performed By: #### L [id number] ####[facility] ([facility])[address] [place] [address] Troponin I.cardiac [Mass/Vol] 0.08 ng/mL High 0.00-0.[address] [facility] Comment on above: Performed By: #### L [id number] ####[facility] ([facility])[address] [place] [address] Troponin I.cardiac [Mass/Vol] 0.10 ng/mL High 0.00-0.[address] [facility] Comment on above: Performed By: #### L [id number] ####[facility] ([facility])[address] [place] [address] 30on 09-01-2023 30 The patient is Moder ately Stable - Low risk of patient condition declining or worsening The patient's goals for the shift include comfort The clinical goals for the shift include safety Normal [facility] HPon 09-01-[address] [facility] 36on 08-29-2023 36 Pt informed Normal [facility] Orders Onlyon 08-01-2023 Orders Only [id number] Gui Ortiz Sr. 1955 M Date Provider Department Center 08/01/2023 CASSIUS MAYELINCHARLES PERALES [facility] . Family History Family history unknown: Yes Normal [facility] Documentationon 07-30-2023 Documentation [id number] Gui Ortiz Sr. 1955 M Date Provider Department Center 07/30/2023 AryYANETH MAYELINCHARLES PERALES [facility] . Family History Family history unknown: Yes Normal [facility] 37on 07-18-[address] [facility] Follow-Upon 07-18-2023 Follow-Up Normal [facility] 30on 07-09-[address] [facility] BASIC METABOLIC PANELon 06-18 Anion gap [Moles/Vol] 11 mmol/L Normal 7-[address] [facility] Comment on above: Performed By: #### L [id number] ####[facility] ([facility])[address] [place] [address] Calcium [Mass/Vol] 9.0 mg/dL Normal 8.6-10.3 [facility] Comment on above: Performed By: #### L [id number] ####[facility] ([facility])[address] [place] [address] Chloride [Moles/Vol] 105 mmol/L Normal 98-[address] [facility] Comment on above: Performed By: #### L [id number] ####[facility] ([facility])[address] [place] [address] CO2 [Moles/Vol] 22 mmol/L Normal 21-31 [facility] Comment on above: Performed By: #### L [id number] ####[facility] ([facility])[address] [place] [address] Creatinine [Mass/Vol] 0.89 mg/dL Normal 0.70-1.[address] [facility] Comment on above: Performed By: #### L [id number] ####[facility] ([facility])[address] [place] [address] GLOMERULAR FILTRATION RATE ML/MIN/1.73 SQ M.PREDICTED 92.8 mL/min/1.73m*2 Normal >60.[address] [facility] Comment on above: Result Comment: The [facility]???s estimated glomerular filtration rate (eGFR) will [...] of individuals. Performed By: #### L [id number] ####[facility] ([facility])[address] [place] [address] Glucose [Mass/Vol] 102 mg/dL High 70-100 [facility] Comment on above: Performed By: #### L [id number] ####[facility] ([facility])[address] [place] [address] Potassium [Moles/Vol] 3.5 mmol/L Normal 3.5-5.[address] [facility] Comment on above: Performed By: #### L [id number] ####[facility] ([facility])[address] [place] [address] Sodium [Moles/Vol] 134 mmol/L Low 136-145 [facility] Comment on above: Performed By: #### L [id number] ####[facility] [place] [address] Urea nitrogen [Mass/Vol] 16 mg/dL Normal 7-[address] [facility] Comment on above: Performed By: #### L [id number] ####[facility] ([facility])[address] [place] [address] UREA NITROGEN/CREATININ E (MASS RATIO) IN SER/PLAS 18.[address] [facility] Comment on above: Performed By: #### L [id number] ####[facility] ([facility])[address] [place] [address] DSon 07-09-[address] [facility] Orders Onlyon 07-09-2023 Orders Only [id number] Gui Ortiz Sr. 1955 M Date Provider Department Center 07/09/2023 MAYELIN HAMMONDS [facility] In[facility]. Family History Family history unknown: Yes Normal [facility] 30on 07-08-2023 30 The patient is Moder ately Stable - Low risk of patient condition declining or worsening The patient's goals for the shift include comfort The clinical goals for the shift include vss Normal [facility] ANESon 07-08-2023 ANES [facility] ANTI-XA (HEPARIN LEVEL)on HEPARIN UNFRACTIONATED (U/ML) IN PPP BY CHROMOGENIC METHOD 0.39 IU/mL Normal 0.3-0.[address] [facility] Comment on above: Order Comment: Check anti-Xa level every 6 hours while on heparin infusion, or per protocol. Result Comment: [place] roxaban and Apixaban will interfere with the anti Xa assay used to monitor UFH and LMWH. Performed By: #### L [id number] ####[facility] ([facility])[address] [place] [address] BASIC METABOLIC PANELon 06-18 Anion gap [Moles/Vol] 11 mmol/L Normal 7-[address] [facility] Comment on above: Performed By: #### L [id number] ####[facility] ([facility])[address] [place] [address] Calcium [Mass/Vol] 10.0 mg/dL Normal 8.6-10.3 [facility] Comment on above: Performed By: #### L [id number] ####[facility] ([facility])[address] [place] [address] Chloride [Moles/Vol] 105 mmol/L Normal 98-[address] [facility] Comment on above: Performed By: #### L [id number] ####[facility] ([facility])[address] [place] [address] CO2 [Moles/Vol] 26 mmol/L Normal 21-31 [facility] Comment on above: Performed By: #### L [id number] ####[facility] ([facility])[address] [place] [address] Creatinine [Mass/Vol] 1.02 mg/dL Normal 0.70-1.[address] [facility] Comment on above: Performed By: #### L [id number] ####[facility] ([facility])[address] [place] [address] GLOMERULAR FILTRATION RATE ML/MIN/1.73 SQ M.PREDICTED 79.6 mL/min/1.73m*2 Normal >60.[address] [facility] Comment on above: Result Comment: [facility]???s estimated glomerular filtration rate (eGFR) will [...] of individuals. Performed By: #### L [id number] ####[facility] ([facility])[address] [place] [address] Glucose [Mass/Vol] 112 mg/dL High 70-100 [facility] Comment on above: Performed By: #### L [id number] ####[facility] ([facility])[address] [place] [address] Potassium [Moles/Vol] 4.5 mmol/L Normal 3.5-5.[address] [facility] Comment on above: Performed By: #### L [id number] ####[facility] ([facility])[address] [place] [address] Sodium [Moles/Vol] 137 mmol/L Normal 136-145 [facility] Comment on above: Performed By: #### L [id number] ####[facility] ([facility])[address] [place] [address] Urea nitrogen [Mass/Vol] 15 mg/dL Normal 7-[address] [facility] Comment on above: Performed By: #### L [id number] ####[facility] ([facility])[address] [place] [address] UREA NITROGEN/CREATININ E (MASS RATIO) IN SER/PLAS 14.[address] [facility] Comment on above: Performed By: #### L [id number] ####[facility] ([facility])[address] [address] CBCon 07-08-2023 Erythrocyte distribution width (RBC) [Ratio] 13.5 % Normal 11.5-15.[address] [facility] Comment on above: Performed By: #### L [id number] ####[facility] ([facility])[address] [place] [address] ERYTHROCYTE MEAN CORPUSCULAR HEMOGLOBIN CONCENTRATION (G/DL) BY AUTOMATED 33.0 g/dL Normal 32.0-35.[address] [facility] Comment on above: Performed By: #### L [id number] ####[facility] ([facility])[address] [place] [address] Hematocrit (Bld) [Volume fraction] 39.4 % Normal 39.0-55.[address] [facility] Comment on above: Performed By: #### L [id number] ####[facility] ([facility])[address] [address] Hemoglobin (Bld) [Mass/Vol] 13.0 g/dL Normal 13.0-17.[address] [facility] Comment on above: Performed By: #### L [id number] ####[facility] ([facility])[address], [place] [address] MCH (RBC) [Entitic mass] 29.1 pg Normal 27.0-33.[address] [facility] Comment on above: Performed By: #### L [id number] ####[facility] ([facility])[address] [address] MCV (RBC) [Entitic vol] 88.3 fL Normal 82.0-98.[address] [facility] Comment on above: Performed By: #### L [id number] ####[facility] ([facility])[address] [place] [address] PLATELETS (10*3/UL) IN BLOOD AUTOMATED COUNT 248 10*3/uL Normal 150-[address] [facility] Comment on above: Performed By: #### L [id number] ####[facility] ([facility])[address] [place] [address] RBC (Bld) [#/Vol] 4.46 10*6/uL Normal 4.20-5.70 [facility] Comment on above: Performed By: #### L [id number] ####[facility] ([facility])[address] [place] [address] WBC (Bld) [#/Vol] 7.02 10*3/uL Normal 4.00-10.60 [facility] Comment on above: Performed By: #### L [id number] ####[facility] ([facility])[address] [place] [address] HPon 07-08-2023 HP H&P reviewed. The pa tient was examined and there are changes to the H&P, specifically, the L radial pulse is absent as are the distal PT and DP pulses. Normal [facility] LIPID PANELon 07-08-2023 CHOL/HDL 2.6 mg/dL Normal [facility] Comment on above: Performed By: #### L [id number] ####[facility] ([facility])[address] [place] [address] Cholesterol [Mass/Vol] 105 mg/dL Low 120-[address] [facility] Comment on above: Performed By: #### L [id number] ####[facility] ([facility])[address] [place] [address] Magnesium [Mass/Vol] 63 mg/dL Normal 40-[address] [facility] Comment on above: Result Comment: TRIG LYCERIDE REFERENCE RANGE:20 YEARS AND OLDER CARDIOVASCULAR RISKLESS THAN 150 mg/dL LOW [id number] TO 199 mg/dL BORDERLINE [id number] mg/dL AND GREATER HIGH RISK Performed By: #### L [id number] ####[facility] ([facility])[address] [place] [address] Magnesium [Mass/Vol] 52 mg/dL Normal 0-[address] [facility] Comment on above: Performed By: #### L [id number] ####[facility] ([facility])[address] [place] [address] Magnesium [Mass/Vol] 40 mg/dL Normal 23-[address] [facility] Comment on above: Performed By: #### L [id number] ####[facility] ([facility])[address] [place] [address] NON HDL CHOL. (LDL+VLDL) [address] [facility] Comment on above: Performed By: #### L [id number] ####[facility] ([facility])[address] [place] [address] TOTAL VLDL-C 13 mg/dL Normal 0-[address] [facility] Comment on above: Performed By: #### L [id number] ####[facility] ([facility])[address] [place] [address] NURSNOTEon 07-08-[address] [facility] 30on 07-07-[address] [facility] ANTI-XA (HEPARIN LEVEL)on HEPARIN UNFRACTIONATED (U/ML) IN PPP BY CHROMOGENIC METHOD 0.35 IU/mL Normal 0.3-0.[address] [facility] Comment on above: Result Comment: [place] roxaban and Apixaban will interfere with the anti Xa assay used to monitor UFH and LMWH. Performed By: #### L [id number] ####[facility] ([facility])[address] [place] [address] HEPARIN UNFRACTIONATED (U/ML) IN PPP BY CHROMOGENIC METHOD 0.35 IU/mL Normal 0.3-0.[address] [facility] Comment on above: Order Comment: Check anti-Xa level every 6 hours while on heparin infusion, or per protocol. Result Comment: [place] roxaban and Apixaban will interfere with the anti Xa assay used to monitor UFH and LMWH. Performed By: #### L [id number] ####[facility] ([facility])[address] [place] [address] BASIC METABOLIC PANELon - Anion gap [Moles/Vol] 12 mmol/L Normal 7-[address] [facility] Comment on above: Performed By: #### L [id number] ####[facility] ([facility])[address] [place] [address] Calcium [Mass/Vol] 9.0 mg/dL Normal 8.6-10.3 [facility] Comment on above: Performed By: #### L [id number] ####[facility] ([facility])[address] [place] [address] Chloride [Moles/Vol] 106 mmol/L Normal 98-[address] [facility] Comment on above: Performed By: #### L [id number] ####[facility] ([facility])[address] [place] [address] CO2 [Moles/Vol] 22 mmol/L Normal 21-31 [facility] Comment on above: Performed By: #### L [id number] ####[facility] ([facility])[address] [place] [address] Creatinine [Mass/Vol] 0.79 mg/dL Normal 0.70-1.[address] [facility] Comment on above: Performed By: #### L [id number] ####[facility] ([facility])[address] [place] [address] GLOMERULAR FILTRATION RATE ML/MIN/1.73 SQ M.PREDICTED 96.2 mL/min/1.73m*2 Normal >60.[address] [facility] Comment on above: Result Comment: [facility]???s estimated glomerular filtration rate (eGFR) will [...] of individuals. Performed By: #### L [id number] ####[facility] ([facility])[address] [place] [address] Glucose [Mass/Vol] 113 mg/dL High 70-100 [facility] Comment on above: Performed By: #### L [id number] ####[facility] ([facility])[address] [place] [address] Potassium [Moles/Vol] 3.6 mmol/L Normal 3.5-5.[address] [facility] Comment on above: Performed By: #### L [id number] ####[facility] ([facility])[address] [place] [address] Sodium [Moles/Vol] 136 mmol/L Normal 136-145 [facility] Comment on above: Performed By: #### L [id number] ####[facility] ([facility])[address] [place] [address] Urea nitrogen [Mass/Vol] 16 mg/dL Normal 7-[address] [facility] Comment on above: Performed By: #### L [id number] ####[facility] ([facility])[address] [place] [address] UREA NITROGEN/CREATININ E (MASS RATIO) IN SER/PLAS 20.[address] [facility] Comment on above: Performed By: #### L [id number] ####[facility] ([facility])[address] [place] [address] 30on 07-06-[address] [facility] 30 The patient is Moder ately Stable - Low risk of patient condition declining or worsening The patient's goals for the shift include comfort The clinical goals for the shift include VSS Normal [facility] ANTI-XA (HEPARIN LEVEL)on HEPARIN UNFRACTIONATED (U/ML) IN PPP BY CHROMOGENIC METHOD 0.34 IU/mL Normal 0.3-0.[address] [facility] Comment on above: Order Comment: Check anti-Xa level every 6 hours while on heparin infusion, or per protocol. Result Comment: [place] roxaban and Apixaban will interfere with the anti Xa assay used to monitor UFH and LMWH. Performed By: #### L [id number] ####[facility] ([facility])[address] [place] [address] HEPARIN UNFRACTIONATED (U/ML) IN PPP BY CHROMOGENIC METHOD 0.22 IU/mL Low 0.3-0.[address] [facility] Comment on above: Order Comment: Check anti-Xa level every 6 hours while on heparin infusion, or per protocol. Result Comment: [place] roxaban and Apixaban will interfere with the anti Xa assay used to monitor UFH and LMWH. Performed By: #### L [id number] ####[facility] ([facility])[address] [place] [address] HEPARIN UNFRACTIONATED (U/ML) IN PPP BY CHROMOGENIC METHOD 0.16 IU/mL Invalid Interpretation Code 0.3-0.[address] [facility] Comment on above: Order Comment: Check anti-Xa level every 6 hours while on heparin infusion, or per protocol. Result Comment: [place] roxaban and Apixaban will interfere with the anti Xa assay used to monitor UFH and LMWH. Performed By: #### L [id number] ####[facility] ([facility])[address] [place] [address] CBCon 07-06-2023 Erythrocyte distribution width (RBC) [Ratio] 13.7 % Normal 11.5-15.[address] [facility] Comment on above: Performed By: #### L [id number] ####[facility] ([facility])[address] [place] [address] ERYTHROCYTE MEAN CORPUSCULAR HEMOGLOBIN CONCENTRATION (G/DL) BY AUTOMATED 34.3 g/dL Normal 32.0-35.[address] [facility] Comment on above: Performed By: #### L [id number] ####[facility] ([facility])[address] [place] [address] Hematocrit (Bld) [Volume fraction] 38.8 % Low 39.0-55.[address] [facility] Comment on above: Performed By: #### L [id number] ####[facility] ([facility])[address] [place] [address] Hemoglobin (Bld) [Mass/Vol] 13.3 g/dL Normal 13.0-17.[address] [facility] Comment on above: Performed By: #### L [id number] ####[facility] ([facility])[address] [place] [address] MCH (RBC) [Entitic mass] 29.6 pg Normal 27.0-33.[address] [facility] Comment on above: Performed By: #### L [id number] ####[facility] ([facility])[address] [place] [address] MCV (RBC) [Entitic vol] 86.4 fL Normal 82.0-98.[address] [facility] Comment on above: Performed By: #### L [id number] ####[facility] ([facility])[address] [place] [address] PLATELETS (10*3/UL) IN BLOOD AUTOMATED COUNT 242 10*3/uL Normal 150-[address] [facility] Comment on above: Performed By: #### L [id number] ####[facility] ([facility])[address] [place] [address] RBC (Bld) [#/Vol] 4.49 10*6/uL Normal 4.20-5.70 [facility] Comment on above: Performed By: #### L [id number] ####[facility] ([facility])[address] [place] [address] WBC (Bld) [#/Vol] 6.59 10*3/uL Normal 4.00-10.60 [facility] Comment on above: Performed By: #### L [id number] ####[facility] ([facility])[address] [place] [address] CONSULTon 07-06-2023 CONSULT [facility] HPon 07-06-[address] [facility] TROPONIN Ion 07-06-2023 Troponin I.cardiac [Mass/Vol] 0.03 ng/mL Normal 0.00-0.[address] [facility] Comment on above: Performed By: #### L [id number] ####[facility] ([facility])[address] [place] [address] Troponin I.cardiac [Mass/Vol] 0.05 ng/mL High 0.00-0.[address] [facility] Comment on above: Performed By: #### L [id number] ####[facility] ([facility])[address] [place] [address] Troponin I.cardiac [Mass/Vol] 0.06 ng/mL High 0.00-0.[address] [facility] Comment on above: Performed By: #### L [id number] ####[facility] ([facility])[address] [place] [address] 30on 07-05-[address] [facility] 30 [facility] ANTI-XA (HEPARIN LEVEL)on HEPARIN UNFRACTIONATED (U/ML) IN PPP BY CHROMOGENIC METHOD 0.17 IU/mL Low 0.3-0.[address] [facility] Comment on above: Order Comment: Check anti-Xa level every 6 hours while on heparin infusion, or per protocol. Result Comment: [place] roxaban and Apixaban will interfere with the anti Xa assay used to monitor UFH and LMWH. Performed By: #### L [id number] ####[facility] ([facility])[address] [place] [address] APTTon 07-05-2023 ACTIVATED PARTIAL THROMBOPLASTIN TIME IN PPP BY COAGULATION ASSAY 36.3 Seconds High 25.0-35.[address] [facility] Comment on above: Order Comment: Basel ine aPTT before initiating heparin infusion. Result Comment: Clin ical significance of the APTT is questionable in the presence of heparin. Performed By: #### L [id number] ####[facility] ([facility])[address] [place] [address] B-TYPE NATRIURETIC PEPTIDEon 07-05-2023 Natriuretic peptide B (Bld) [Mass/Vol] 346 pg/mL High 0-[address] [facility] Comment on above: Performed By: #### L [id number] ####[facility] ([facility])[address] [place] [address] CBC WITH AUTO DIFFERENTIALon 07-05-2023 Basophils (Bld) [#/Vol] 0.03 10*3/uL Normal 0.00-0.[address] [facility] Comment on above: Performed By: #### L [id number] ####[facility] ([facility])[address] [place] [address] Basophils/100 WBC (Bld) 0.5 % Normal 0.0-1.[address] [facility] Comment on above: Performed By: #### L [id number] ####[facility] ([facility])[address] [place] [address] Eosinophils (Bld) [#/Vol] 0.15 10*3/uL Normal 0.00-0.[address] [facility] Comment on above: Performed By: #### L [id number] ####[facility] ([facility])[address] [place] [address] Eosinophils/100 WBC (Bld) 2.3 % Normal 0.0-6.[address] [facility] Comment on above: Performed By: #### L [id number] ####[facility] ([facility])[address] [place] [address] Erythrocyte distribution width (RBC) [Ratio] 13.6 % Normal 11.5-15.[address] [facility] Comment on above: Performed By: #### L [id number] ####[facility] ([facility])[address] [place] [address] ERYTHROCYTE MEAN CORPUSCULAR HEMOGLOBIN CONCENTRATION (G/DL) BY AUTOMATED 34.1 g/dL Normal 32.0-35.[address] [facility] Comment on above: Performed By: #### L [id number] ####[facility] ([facility])[address] [place] [address] Hematocrit (Bld) [Volume fraction] 41.7 % Normal 39.0-55.[address] [facility] Comment on above: Performed By: #### L [id number] ####[facility] ([facility])[address] [place] [address] Hemoglobin (Bld) [Mass/Vol] 14.2 g/dL Normal 13.0-17.[address] [facility] Comment on above: Performed By: #### L [id number] ####[facility] ([facility])[address] [place] [address] Immature granulocytes (Bld) [#/Vol] 0.01 10*3/uL Normal 0.00-0.[address] [facility] Comment on above: Performed By: #### L [id number] ####[facility] ([facility])[address] [place] [address] Immature granulocytes/100 WBC (Bld) 0.2 % Normal 0.0-1.[address] [facility] Comment on above: Performed By: #### L [id number] ####[facility] ([facility])[address] [place] [address] Lymphocytes (Bld) [#/Vol] 2.12 10*3/uL Normal 1.20-4.[address] [facility] Comment on above: Performed By: #### L [id number] ####[facility] ([facility])[address] [place] [address] Lymphocytes/100 WBC (Bld) 32.7 % Normal 20.0-45.[address] [facility] Comment on above: Performed By: #### L [id number] ####[facility] ([facility])[address] [place] [address] MCH (RBC) [Entitic mass] 29.3 pg Normal 27.0-33.[address] [facility] Comment on above: Performed By: #### L [id number] ####[facility] ([facility])[address] [place] [address] MCV (RBC) [Entitic vol] 86.2 fL Normal 82.0-98.[address] [facility] Comment on above: Performed By: #### L [id number] ####[facility] ([facility])[address] [place] [address] Monocytes (Bld) [#/Vol] 0.64 10*3/uL Normal 0.10-1.[address] [facility] Comment on above: Performed By: #### L [id number] ####[facility] ([facility])[address] [place] [address] Monocytes/100 WBC (Bld) 9.9 % Normal 5.0-12.[address] [facility] Comment on above: Performed By: #### L [id number] ####[facility] ([facility])[address] [place] [address] Neutrophils (Bld) [#/Vol] 3.54 10*3/uL Normal 1.60-7.[address] [facility] Comment on above: Performed By: #### L [id number] ####[facility] ([facility])[address] [place] [address] Neutrophils/100 WBC (Bld) 54.4 % Normal 40.0-72.[address] [facility] Comment on above: Performed By: #### L [id number] ####[facility] ([facility])[address] [place] [address] NRBC (PER 100 WBCS) BY AUTOMATED COUNT 0.0 % Normal [address] [facility] Comment on above: Performed By: #### L [id number] ####[facility] ([facility])[address] [place] [address] PLATELETS (10*3/UL) IN BLOOD AUTOMATED COUNT 277 10*3/uL Normal 150-[address] [facility] Comment on above: Performed By: #### L [id number] ####[facility] ([facility])[address] [place] [address] RBC (Bld) [#/Vol] 4.84 10*6/uL Normal 4.20-5.70 [facility] Comment on above: Performed By: #### L [id number] ####[facility] ([facility])[address] [place] [address] WBC (Bld) [#/Vol] 6.49 10*3/uL Normal 4.00-10.60 [facility] Comment on above: Performed By: #### L [id number] ####[facility] ([facility])[address] [place] [address] COMPREHENSIVE METABOLIC PANE Roddy 07-05-2023 Albumin [Mass/Vol] 3.9 g/dL Normal 3.5-5.7 [facility] Comment on above: Performed By: #### L [id number] ####[facility] ([facility])[address] [place] [address] ALP [Catalytic activity/Vol] 127 U/L High 34-[address] [facility] Comment on above: Performed By: #### L [id number] ####[facility] ([facility])[address] [place] [address] ALT [Catalytic activity/Vol] 10 U/L Normal 7-[address] [facility] Comment on above: Performed By: #### L [id number] ####[facility] ([facility])[address] [place] [address] Anion gap [Moles/Vol] 14 mmol/L Normal 7-[address] [facility] Comment on above: Performed By: #### L [id number] ####[facility] ([facility])[address] [place] [address] AST [Catalytic activity/Vol] 15 U/L Normal 13-[address] [facility] Comment on above: Performed By: #### L [id number] ####[facility] ([facility])[address] [place] [address] Bilirubin [Mass/Vol] 0.4 mg/dL Normal 0.3-1.[address] [facility] Comment on above: Performed By: #### L [id number] ####[facility] ([facility])[address] [place] [address] Calcium [Mass/Vol] 9.4 mg/dL Normal 8.6-10.3 [facility] Comment on above: Performed By: #### L [id number] ####[facility] ([facility])[address] [place] [address] Chloride [Moles/Vol] 106 mmol/L Normal 98-[address] [facility] Comment on above: Performed By: #### L [id number] ####[facility] ([facility])[address] [place] [address] CO2 [Moles/Vol] 23 mmol/L Normal 21-31 [facility] Comment on above: Performed By: #### L [id number] ####[facility] ([facility])[address] [place] [address] Creatinine [Mass/Vol] 0.78 mg/dL Normal 0.70-1.[address] [facility] Comment on above: Performed By: #### L [id number] ####[facility] ([facility])[address] [place] [address] GLOMERULAR FILTRATION RATE ML/MIN/1.73 SQ M.PREDICTED 96.5 mL/min/1.73m*2 Normal >60.[address] [facility] Comment on above: Result Comment: [facility]???s estimated glomerular filtration rate (eGFR) will [...] of individuals. Performed By: #### L [id number] ####[facility] ([facility])[address] [place] [address] Glucose [Mass/Vol] 114 mg/dL High 70-100 [facility] Comment on above: Performed By: #### L [id number] ####[facility] ([facility])[address] [place] [address] Potassium [Moles/Vol] 3.5 mmol/L Normal 3.5-5.[address] [facility] Comment on above: Performed By: #### L [id number] ####[facility] ([facility])[address] [place] [address] Protein [Mass/Vol] 7.5 g/dL Normal 6.0-8.3 [facility] Comment on above: Performed By: #### L [id number] ####[facility] ([facility] [facility] [place] [address] Sodium [Moles/Vol] 139 mmol/L Normal 136-145 [facility] Comment on above: Performed By: #### L [id number] ####[facility] ([facility])[address] [place] [address] Urea nitrogen [Mass/Vol] 13 mg/dL Normal 7-[address] [facility] Comment on above: Performed By: #### L [id number] ####[facility] ([facility])[address] [place] [address] UREA NITROGEN/CREATININ E (MASS RATIO) IN SER/PLAS 16.[address] [facility] Comment on above: Performed By: #### L [id number] ####[facility] ([facility])[address] [place] [address] HPon 07-05-[address] [facility] MAGNESIUMon 07-05-2023 Magnesium [Mass/Vol] 1.8 mg/dL Low 1.9-2.[address] [facility] Comment on above: Performed By: #### L [id number] ####[facility] ([facility])[address] [place] [address] NURSNOTEon 07-05-2023 NURSNOTE Lead RN called admit amalia MONTES DE OCA, no new orders as of this time. [employer] Supervisor verified diet order, pt placing order for dinner. Will continue to monitor Normal [facility] PHOSPHORUSon 07-05-2023 Magnesium [Mass/Vol] 3.5 mg/dL Normal 2.5-5.[address] [facility] Comment on above: Performed By: #### L [id number] ####[facility] ([employer])[address] [place] [address] POCT GLUCOSE METER UNSOLICIT ED RESULTSon 07-05-2023 Glucose [Mass/Vol] 163 mg/dL High 70-105 [facility] Comment on above: Order Comment: Waive d Testing in the ED is performed under the ED CLIA certificate #[id number]. Result Comment: [email or web address] Performed By: #### L [id number] ####[facility] ([employer])[address] [place] [address] PROTIME-INRon 07-05-2023 INR IN PPP BY COAGULATION ASSAY 1.07 Normal 0.90-1.[address] [facility] Comment on above: Result Comment: ACCC [...] CHEST 1995;[id number]. Performed By: #### L [id number] ####[facility] ([employer])[address] [place] [address] PROTHROMBIN TIME (PT) IN PPP BY COAGULATION ASSAY 13.9 Seconds Normal 12.3-14.[address] [facility] Comment on above: Performed By: #### L [id number] ####[facility] ([facility])[address] [place] [address] TROPONIN Ion 07-05-2023 Troponin I.cardiac [Mass/Vol] 0.12 ng/mL Critically high 0.00-0.[address] [facility] Comment on above: Result Comment: M-UT EVIOUS CRITICAL RESULTPrevious result verified on 07/05/20232224 on specimen/case [id number] called with component Troponin I for procedure Troponin I with value 0.23 ng/mL. Performed By: #### L [id number] ####[facility] ([facility])[address] [place] [address] Troponin I.cardiac [Mass/Vol] 0.23 ng/mL Critically high 0.00-0.[address] [facility] Comment on above: Result Comment: M-CR ITICAL RESULT(S) REVIEWED, CALLED TO AND READ BACK BY MARY SIMMONS RN AT 2224M-TROPONIN INITIAL CRITICAL HIGH; RESPUN AND RETESTED Performed By: #### L [id number] ####[facility] ([facility])[address] [place] [address] Orders Onlyon 07-02-2023 Orders Only [id number] Gui Ortiz Sr. 1955 M Date Provider Department Center 07/02/2023 ALLEN HUA DCC ONC DCC Family History Family history unknown: Yes Normal [facility] 29on 05-16-2023 29 Addended by: PASCUAL VELARDE on: 05/16/2023 03:51 PM Modules accepted: Orders Normal [facility] 29 Addended by: PASCUAL VELARDE on: 05/16/2023 03:50 PM Modules accepted: Orders Normal [facility] Follow-Upon 05-16-2023 Follow-Up Normal [facility] 36on 05-03-[address] [facility] Telephoneon 05-03-2023 Telephone [id number] Gui Ortiz 1955 M Date Provider Department Center 05/03/2023 SAEID MARISCAL HVCVASENDO CA [facility] Family History Family history unknown: Yes Normal [facility] 36on 05-02-[address] [facility] 30on 05-01-[address] [facility] [address] [facility] BASIC METABOLIC PANELon 11- Anion gap [Moles/Vol] 11 mmol/L Normal 7-[address] [facility] Comment on above: Performed By: #### L [id number] ####[facility] ([facility])[address] [place] [address] Calcium [Mass/Vol] 8.4 mg/dL Low 8.6-10.3 [facility] Comment on above: Performed By: #### L [id number] ####[facility] ([facility])[address] [place] [address] Chloride [Moles/Vol] 109 mmol/L High 98-[address] [facility] Comment on above: Performed By: #### L [id number] ####[facility] ([facility])[address] [place] [address] CO2 [Moles/Vol] 22 mmol/L Normal 21-31 [facility] Comment on above: Performed By: #### L [id number] ####[facility] ([facility])[address] [place] [address] Creatinine [Mass/Vol] 0.62 mg/dL Low 0.70-1.[address] [facility] Comment on above: Performed By: #### L [id number] ####[facility] ([facility])[address] [place] [address] GLOMERULAR FILTRATION RATE ML/MIN/1.73 SQ M.PREDICTED 103.5 mL/min/1.73m*2 Normal >60.[address] [facility] Comment on above: Result Comment: [facility]???s estimated glomerular filtration rate (eGFR) will [...] of individuals. Performed By: #### L [id number] ####[facility] ([facility] [place] [address] Glucose [Mass/Vol] 98 mg/dL Normal 70-100 [facility] Comment on above: Performed By: #### L [id number] ####[facility] ([facility])[address] [place] [address] Potassium [Moles/Vol] 3.7 mmol/L Normal 3.5-5.[address] [facility] Comment on above: Performed By: #### L [id number] ####[facility] ([facility])[address] [place] [address] Sodium [Moles/Vol] 138 mmol/L Normal 136-145 [facility] Comment on above: Performed By: #### L [id number] ####[facility] ([facility])[address] [place] [address] Urea nitrogen [Mass/Vol] 12 mg/dL Normal 7-[address] [facility] Comment on above: Performed By: #### L [id number] ####[facility] ([facility])[address] [place] [address] UREA NITROGEN/CREATININ E (MASS RATIO) IN SER/PLAS 19.[address] [facility] Comment on above: Performed By: #### L [id number] ####[facility] ([facility])[address] [place] [address] CBCon 05-01-2023 Erythrocyte distribution width (RBC) [Ratio] 14.5 % Normal 11.5-15.[address] [facility] Comment on above: Performed By: #### L [id number] ####[facility] ([facility])[address] [place] [address] ERYTHROCYTE MEAN CORPUSCULAR HEMOGLOBIN CONCENTRATION (G/DL) BY AUTOMATED 33.2 g/dL Normal 32.0-35.[address] [facility] Comment on above: Performed By: #### L [id number] ####[facility] ([facility])[address] [place] [address] Hematocrit (Bld) [Volume fraction] 27.4 % Low 39.0-55.[address] [facility] Comment on above: Performed By: #### L [id number] ####[facility] ([facility])[address] [place] [address] Hemoglobin (Bld) [Mass/Vol] 9.1 g/dL Low 13.0-17.[address] [facility] Comment on above: Performed By: #### L [id number] ####[facility] ([facility])[address] [place] [address] MCH (RBC) [Entitic mass] 30.7 pg Normal 27.0-33.[address] [facility] Comment on above: Performed By: #### L [id number] ####[facility] ([facility])[address] [place] [address] MCV (RBC) [Entitic vol] 92.6 fL Normal 82.0-98.[address] [facility] Comment on above: Performed By: #### L [id number] ####[facility] ([facility])[address] [place] [address] PLATELETS (10*3/UL) IN BLOOD AUTOMATED COUNT 276 10*3/uL Normal 150-[address] [facility] Comment on above: Performed By: #### L [id number] ####[facility] ([facility])[address] [place] [address] RBC (Bld) [#/Vol] 2.96 10*6/uL Low 4.20-5.70 [facility] Comment on above: Performed By: #### L [id number] ####[facility] ([facility])[address] [place] [address] WBC (Bld) [#/Vol] 6.87 10*3/uL Normal 4.00-10.60 [facility] Comment on above: Performed By: #### L [id number] ####[facility] ([facility])[address] [place] [address] DSon 05-01-[address] [facility] MAGNESIUMon 05-01-2023 Magnesium [Mass/Vol] 1.7 mg/dL Low 1.9-2.[address] [facility] Comment on above: Performed By: #### L [id number] ####[facility] ([facility])[address] [place] [address] NURSNOTEon 05-01-2023 NURSNOTE [facility] NURSNOTE [facility] PHOSPHORUSon 05-01-2023 Magnesium [Mass/Vol] 3.8 mg/dL Normal 2.5-5.[address] [facility] Comment on above: Performed By: #### L [id number] ####[facility] ([facility])[address] [place] [address] POCT GLUCOSE METER UNSOLICIT ED RESULTSon 05-01-2023 Glucose [Mass/Vol] 116 mg/dL High 70-105 [facility] Comment on above: Order Comment: Waive d Testing in the ED is performed under the ED CLIA certificate #[id number]. Result Comment: [email or web address] Performed By: #### L [id number] ####[facility] ([facility])[address] [place] [address] Glucose [Mass/Vol] 115 mg/dL High 70-105 [facility] Comment on above: Order Comment: Waive d Testing in the ED is performed under the ED CLIA certificate #[id number]. Result Comment: [email or web address] Performed By: #### L [id number] ####[facility] ([facility])[address] [place] [address] 30on 04-30-[address] [facility] [address] [facility] BASIC METABOLIC PANELon 04-17 Anion gap [Moles/Vol] 12 mmol/L Normal 7-[address] [facility] Comment on above: Performed By: #### L [id number] ####[facility] ([facility])[address] [place] [address] Calcium [Mass/Vol] 8.3 mg/dL Low 8.6-10.3 [facility] Comment on above: Performed By: #### L [id number] ####[facility] ([facility])[address] [place] [address] Chloride [Moles/Vol] 109 mmol/L High 98-[address] [facility] Comment on above: Performed By: #### L [id number] ####[facility] ([facility])[address] [place] [address] CO2 [Moles/Vol] 21 mmol/L Normal 21-31 [facility] Comment on above: Performed By: #### L [id number] ####[facility] ([facility])[address] [place] [address] Creatinine [Mass/Vol] 0.70 mg/dL Normal 0.70-1.[address] [facility] Comment on above: Performed By: #### L [id number] ####[facility] ([facility])[address] [place] [address] GLOMERULAR FILTRATION RATE ML/MIN/1.73 SQ M.PREDICTED 99.7 mL/min/1.73m*2 Normal >60.[address] [facility] Comment on above: Result Comment: [facility]???s estimated glomerular filtration rate (eGFR) will [...] of individuals. Performed By: #### L [id number] ####[facility] ([facility])[address] [place] [address] Glucose [Mass/Vol] 104 mg/dL High 70-100 [facility] Comment on above: Performed By: #### L [id number] ####[facility] ([facility])[address] [place] [address] Potassium [Moles/Vol] 3.7 mmol/L Normal 3.5-5.[address] [facility] Comment on above: Performed By: #### L [id number] ####[facility] ([facility])[address] [place] [address] Sodium [Moles/Vol] 138 mmol/L Normal 136-145 [facility] Comment on above: Performed By: #### L [id number] ####[facility] ([facility])[address] [place] [address] Urea nitrogen [Mass/Vol] 15 mg/dL Normal 7-[address] [facility] Comment on above: Performed By: #### L [id number] ####[facility] ([facility])[address] [place] [address] UREA NITROGEN/CREATININ E (MASS RATIO) IN SER/PLAS 21.[address] [facility] Comment on above: Performed By: #### L [id number] ####[facility] ([facility])[address] [place] [address] CBCon 04-30-2023 Erythrocyte distribution width (RBC) [Ratio] 13.8 % Normal 11.5-15.[address] [facility] Comment on above: Performed By: #### L [id number] ####[facility] ([facility])[address] [place] [address] ERYTHROCYTE MEAN CORPUSCULAR HEMOGLOBIN CONCENTRATION (G/DL) BY AUTOMATED 32.6 g/dL Normal 32.0-35.[address] [facility] Comment on above: Performed By: #### L [id number] ####[facility] ([facility])[address] [place] [address] Hematocrit (Bld) [Volume fraction] 27.3 % Low 39.0-55.[address] [facility] Comment on above: Performed By: #### L [id number] ####[facility] ([facility])[address] [place] [address] Hemoglobin (Bld) [Mass/Vol] 8.9 g/dL Low 13.0-17.[address] [facility] Comment on above: Performed By: #### L [id number] ####[facility] ([facility])[address] [place] [address] MCH (RBC) [Entitic mass] 30.4 pg Normal 27.0-33.[address] [facility] Comment on above: Performed By: #### L [id number] ####[facility] ([facility])[address] [place] [address] MCV (RBC) [Entitic vol] 93.2 fL Normal 82.0-98.[address] [facility] Comment on above: Performed By: #### L [id number] ####[facility] ([facility])[address] [place] [address] PLATELETS (10*3/UL) IN BLOOD AUTOMATED COUNT 219 10*3/uL Normal 150-[address] [facility] Comment on above: Performed By: #### L [id number] ####[facility] ([facility])[address] [place] [address] RBC (Bld) [#/Vol] 2.93 10*6/uL Low 4.20-5.70 [facility] Comment on above: Performed By: #### L [id number] ####[facility] ([facility])[address] [place] [address] WBC (Bld) [#/Vol] 6.80 10*3/uL Normal 4.00-10.60 [facility] Comment on above: Performed By: #### L [id number] ####[facility] ([facility])[address] [place] [address] MAGNESIUMon 04-30-2023 Magnesium [Mass/Vol] 1.7 mg/dL Low 1.9-2.[address] [facility] Comment on above: Performed By: #### L [id number] ####[facility] ([facility])[address] [place] [address] PHOSPHORUSon 04-30-2023 Magnesium [Mass/Vol] 4.0 mg/dL Normal 2.5-5.[address] [facility] Comment on above: Performed By: #### L [id number] ####[facility] ([facility])[address] [place] [address] POCT GLUCOSE METER UNSOLICIT ED RESULTSon 04-30-2023 Glucose [Mass/Vol] 123 mg/dL High 70-105 [facility] Comment on above: Order Comment: Waive d Testing in the ED is performed under the ED CLIA certificate #[id number]. Result Comment: [email or web address] Performed By: #### L [id number] ####[facility] ([facility])[address] [place] [address] Glucose [Mass/Vol] 138 mg/dL High 70-105 [facility] Comment on above: Order Comment: Waive d Testing in the ED is performed under the ED CLIA certificate #[id number]. Result Comment: [email or web address] Performed By: #### L [id number] ####[facility] ([facility])[address] [place] [address] 30on 04-29-[address] [facility] [address] [facility] [address] [facility] BASIC METABOLIC PANELon 11-1 Anion gap [Moles/Vol] 11 mmol/L Normal 7-[address] [facility] Comment on above: Performed By: #### L [id number] ####[facility] ([facility])[address] [place] [address] Calcium [Mass/Vol] 8.4 mg/dL Low 8.6-10.3 [facility] Comment on above: Performed By: #### L [id number] ####[facility] ([facility])[address] [place] [address] Chloride [Moles/Vol] 109 mmol/L High 98-[address] [facility] Comment on above: Performed By: #### L [id number] ####[facility] ([facility])[address] [place] [address] CO2 [Moles/Vol] 20 mmol/L Low 21-31 [facility] Comment on above: Performed By: #### L [id number] ####[facility] ([facility])[address] [place] [address] Creatinine [Mass/Vol] 0.68 mg/dL Low 0.70-1.[address] [facility] Comment on above: Performed By: #### L [id number] ####[facility] ([facility])[address] [place] [address] GLOMERULAR FILTRATION RATE ML/MIN/1.73 SQ M.PREDICTED 100.6 mL/min/1.73m*2 Normal >60.[address] [facility] Comment on above: Result Comment: [facility]???s estimated glomerular filtration rate (eGFR) will [...] of individuals. Performed By: #### L [id number] ####[facility] ([facility])[address] [place] [address] Glucose [Mass/Vol] 100 mg/dL Normal 70-100 [facility] Comment on above: Performed By: #### L [id number] ####[facility] ([facility])[address] [place] [address] Potassium [Moles/Vol] 3.8 mmol/L Normal 3.5-5.[address] [facility] Comment on above: Performed By: #### L [id number] ####[facility] ([facility])[address] [place] [address] Sodium [Moles/Vol] 136 mmol/L Normal 136-145 [facility] Comment on above: Performed By: #### L [id number] ####[facility] ([facility])[address] [place] [address] Urea nitrogen [Mass/Vol] 18 mg/dL Normal 7-[address] [facility] Comment on above: Performed By: #### L [id number] ####[facility] ([facility])[address] [place] [address] UREA NITROGEN/CREATININ E (MASS RATIO) IN SER/PLAS 26.[address] [facility] Comment on above: Performed By: #### L [id number] ####[facility] ([facility])[address] [place] [address] CBCon 04-29-2023 Erythrocyte distribution width (RBC) [Ratio] 13.6 % Normal 11.5-15.[address] [facility] Comment on above: Performed By: #### L [id number] ####[facility] ([facility])[address] [place] [address] ERYTHROCYTE MEAN CORPUSCULAR HEMOGLOBIN CONCENTRATION (G/DL) BY AUTOMATED 33.7 g/dL Normal 32.0-35.[address] [facility] Comment on above: Performed By: #### L [id number] ####[facility] ([facility])[address] [place] [address] Hematocrit (Bld) [Volume fraction] 27.0 % Low 39.0-55.[address] [facility] Comment on above: Performed By: #### L [id number] ####[facility] ([facility])[address] [place] [address] Hemoglobin (Bld) [Mass/Vol] 9.1 g/dL Low 13.0-17.[address] [facility] Comment on above: Performed By: #### L [id number] ####[facility] ([facility])[address] [place] [address] MCH (RBC) [Entitic mass] 30.4 pg Normal 27.0-33.[address] [facility] Comment on above: Performed By: #### L [id number] ####[facility] ([facility])[address] [place] [address] MCV (RBC) [Entitic vol] 90.3 fL Normal 82.0-98.[address] [facility] Comment on above: Performed By: #### L [id number] ####[facility] ([facility])[address] [place] [address] PLATELETS (10*3/UL) IN BLOOD AUTOMATED COUNT 188 10*3/uL Normal 150-[address] [facility] Comment on above: Performed By: #### L [id number] ####[facility] ([facility])[address] [place] [address] RBC (Bld) [#/Vol] 2.99 10*6/uL Low 4.20-5.70 [facility] Comment on above: Performed By: #### L [id number] ####[facility] ([facility])[address] [place] [address] WBC (Bld) [#/Vol] 7.24 10*3/uL Normal 4.00-10.60 [facility] Comment on above: Performed By: #### L [id number] ####[facility] ([facility])[address] [place] [address] CONSULTon 04-29-[address] [facility] MAGNESIUMon 04-29-2023 Magnesium [Mass/Vol] 1.7 mg/dL Low 1.9-2.[address] [facility] Comment on above: Performed By: #### L [id number] ####[facility] ([facility])[address] [place] [address] PHOSPHORUSon 04-29-2023 Magnesium [Mass/Vol] 3.9 mg/dL Normal 2.5-5.[address] [facility] Comment on above: Performed By: #### L [id number] ####[facility] ([facility])[address] [place] [address] POCT GLUCOSE METER UNSOLICIT ED RESULTSon 04-29-2023 Glucose [Mass/Vol] 111 mg/dL High 70-105 [facility] Comment on above: Order Comment: Waive d Testing in the ED is performed under the ED CLIA certificate #[id number]. Result Comment: [email or web address] Performed By: #### L [id number] ####[facility] ([facility])[address] [place] [address] Glucose [Mass/Vol] 133 mg/dL High 70-105 [facility] Comment on above: Order Comment: Waive d Testing in the ED is performed under the ED CLIA certificate #[id number]. Result Comment: [email or web address] shea Performed By: #### L [id number] ####[facility] ([facility])[address] [place] [address] Glucose [Mass/Vol] 128 mg/dL High 70-105 [facility] Comment on above: Order Comment: Waive d Testing in the ED is performed under the ED CLIA certificate #[id number]. Result Comment: [email or web address] shea Performed By: #### L [id number] ####[facility] ([facility])[address] [place] [address] 30on 04-28-[address] [facility] BASIC METABOLIC PANELon 04-17 Anion gap [Moles/Vol] 10 mmol/L Normal 7-[address] [facility] Comment on above: Performed By: #### L [id number] ####[facility] ([facility])[address] [place] [address] Calcium [Mass/Vol] 8.1 mg/dL Low 8.6-10.3 [facility] Comment on above: Performed By: #### L [id number] ####[facility] ([facility])[address] [place] [address] Chloride [Moles/Vol] 109 mmol/L High 98-[address] [facility] Comment on above: Performed By: #### L [id number] ####[facility] ([facility])[address] [place] [address] CO2 [Moles/Vol] 22 mmol/L Normal 21-31 [facility] Comment on above: Performed By: #### L [id number] ####[facility] ([facility])[address] [place] [address] Creatinine [Mass/Vol] 0.62 mg/dL Low 0.70-1.[address] [facility] Comment on above: Performed By: #### L [id number] ####[facility] ([facility])[address] [place] [address] GLOMERULAR FILTRATION RATE ML/MIN/1.73 SQ M.PREDICTED 103.5 mL/min/1.73m*2 Normal >60.[address] [facility] Comment on above: Result Comment: [facility]???s estimated glomerular filtration rate (eGFR) will [...] of individuals. Performed By: #### L [id number] ####[facility] ([facility])[address] [place] [address] Glucose [Mass/Vol] 102 mg/dL High 70-100 [facility] Comment on above: Performed By: #### L [id number] ####[facility] ([facility])[address] [place] [address] Potassium [Moles/Vol] 3.4 mmol/L Low 3.5-5.[address] [facility] Comment on above: Performed By: #### L [id number] ####[facility] ([facility])[address] [place] [address] Sodium [Moles/Vol] 138 mmol/L Normal 136-145 [facility] Comment on above: Performed By: #### L [id number] ####[facility] LAB (BEAKER)[address] [place] [address] Urea nitrogen [Mass/Vol] 22 mg/dL Normal 7-[address] [facility] Comment on above: Performed By: #### L [id number] ####[facility] LAB (BEAKER)[address] [place] [address] UREA NITROGEN/CREATININ E (MASS RATIO) IN SER/PLAS 35.[address] [facility] Comment on above: Performed By: #### L [id number] ####[facility] ([facility])[address] [place] [address] CBC WITH AUTO DIFFERENTIALon 04-28-2023 Basophils (Bld) [#/Vol] 0.02 10*3/uL Normal 0.00-0.[address] [facility] Comment on above: Performed By: #### L [id number] ####[facility] LAB ([facility])[address] [place] [address] Basophils/100 WBC (Bld) 0.2 % Normal 0.0-1.[address] [facility] Comment on above: Performed By: #### L [id number] ####[facility] LAB ([facility])[address] [place] [address] Eosinophils (Bld) [#/Vol] 0.09 10*3/uL Normal 0.00-0.[address] [facility] Comment on above: Performed By: #### L [id number] ####[facility] ([facility])[address] [place] [address] Eosinophils/100 WBC (Bld) 1.1 % Normal 0.0-6.[address] [facility] Comment on above: Performed By: #### L [id number] ####[facility] ([facility])[address] [place] [address] Erythrocyte distribution width (RBC) [Ratio] 13.6 % Normal 11.5-15.[address] [facility] Comment on above: Performed By: #### L [id number] ####[facility] LAB (BEAKER)[address] [place] [address] ERYTHROCYTE MEAN CORPUSCULAR HEMOGLOBIN CONCENTRATION (G/DL) BY AUTOMATED 33.1 g/dL Normal 32.0-35.[address] [facility] Comment on above: Performed By: #### L [id number] ####[facility] LAB (BEAKER)[address] [place] [address] Hematocrit (Bld) [Volume fraction] 32.3 % Low 39.0-55.[address] [facility] Comment on above: Performed By: #### L [id number] ####[facility] LAB (BEAKER)[address] [place] [address] Hemoglobin (Bld) [Mass/Vol] 10.7 g/dL Low 13.0-17.[address] [facility] Comment on above: Performed By: #### L [id number] ####[facility] LAB (BEAKER)[address] [place] [address] Immature granulocytes (Bld) [#/Vol] 0.06 10*3/uL Normal 0.00-0.[address] [facility] Comment on above: Performed By: #### L [id number] ####[facility] LAB (BEAKER)[address] [place] [address] Immature granulocytes/100 WBC (Bld) 0.7 % Normal 0.0-1.[address] [facility] Comment on above: Performed By: #### L [id number] ####[facility] LAB (BEAKER)[address] [place] [address] Lymphocytes (Bld) [#/Vol] 1.82 10*3/uL Normal 1.20-4.[address] [facility] Comment on above: Performed By: #### L [id number] ####[facility] LAB (BEAKER)[address] [place] [address] Lymphocytes/100 WBC (Bld) 22.2 % Normal 20.0-45.[address] [facility] Comment on above: Performed By: #### L [id number] ####[facility] LAB (BEAKER)[address] [place] [address] MCH (RBC) [Entitic mass] 30.3 pg Normal 27.0-33.[address] [facility] Comment on above: Performed By: #### L [id number] ####[facility] ([facility])[address] [place] [address] MCV (RBC) [Entitic vol] 91.5 fL Normal 82.0-98.[address] [facility] Comment on above: Performed By: #### L [id number] ####[facility] LAB ([facility])[address] [place] [address] Monocytes (Bld) [#/Vol] 0.67 10*3/uL Normal 0.10-1.[address] [facility] Comment on above: Performed By: #### L [id number] ####[facility] ([facility])[address] [place] [address] Monocytes/100 WBC (Bld) 8.2 % Normal 5.0-12.[address] [facility] Comment on above: Performed By: #### L [id number] ####[facility] ([facility])[address] [place] [address] Neutrophils (Bld) [#/Vol] 5.55 10*3/uL Normal 1.60-7.[address] [facility] Comment on above: Performed By: #### L [id number] ####[facility] ([facility])[address] [place] [address] Neutrophils/100 WBC (Bld) 67.6 % Normal 40.0-72.[address] [facility] Comment on above: Performed By: #### L [id number] ####[facility] ([facility])[address] [place] [address] NRBC (PER 100 WBCS) BY AUTOMATED COUNT 0.0 % Normal [address] [facility] Comment on above: Performed By: #### L [id number] ####[facility] LAB (BEAKER)[address] [place] [address] PLATELETS (10*3/UL) IN BLOOD AUTOMATED COUNT 160 10*3/uL Normal 150-[address] [facility] Comment on above: Performed By: #### L [id number] ####[facility] ([facility])[address] [place] [address] RBC (Bld) [#/Vol] 3.53 10*6/uL Low 4.20-5.70 [facility] Comment on above: Performed By: #### L [id number] ####[facility] ([facility])[address] [place] [address] WBC (Bld) [#/Vol] 8.21 10*3/uL Normal 4.00-10.60 [facility] Comment on above: Performed By: #### L [id number] ####[facility] ([facility])[address] [place] [address] MAGNESIUMon 04-28-2023 Magnesium [Mass/Vol] 1.7 mg/dL Low 1.9-2.[address] [facility] Comment on above: Performed By: #### L [id number] ####[facility] ([facility])[address] [place] [address] PHOSPHORUSon 04-28-2023 Magnesium [Mass/Vol] 3.9 mg/dL Normal 2.5-5.[address] [facility] Comment on above: Performed By: #### L [id number] ####[facility] ([facility])[address] [place] [address] POCT GLUCOSE METER UNSOLICIT ED RESULTSon 04-28-2023 Glucose [Mass/Vol] 111 mg/dL High 70-105 [facility] Comment on above: Order Comment: Waive d Testing in the ED is performed under the ED CLIA certificate #[id number]. Result Comment: [email or web address] [email or web address] Performed By: #### L [id number] ####[facility] ([facility])[address] [place] [address] Glucose [Mass/Vol] 86 mg/dL Normal 70-105 [facility] Comment on above: Order Comment: Waive d Testing in the ED is performed under the ED CLIA certificate #[id number]. Result Comment: [email or web address] Performed By: #### L [id number] ####[facility] LAB (BEAKER)[address] [place] [address] Glucose [Mass/Vol] 159 mg/dL High 70-105 [facility] Comment on above: Order Comment: Waive d Testing in the ED is performed under the ED CLIA certificate #[id number]. Result Comment: [email or web address] Performed By: #### L [id number] ####[facility] ([facility])[address] [place] [address] Glucose [Mass/Vol] 109 mg/dL High 70-105 [facility] Comment on above: Order Comment: Waive d Testing in the ED is performed under the ED CLIA certificate #[id number]. Result Comment: [email or web address] [email or web address] Performed By: #### L [id number] ####[facility] ([facility])[address] [place] [address] 30on 04-27-[address] [facility] BASIC METABOLIC PANELon 04-17 Anion gap [Moles/Vol] 11 mmol/L Normal 7-[address] [facility] Comment on above: Performed By: #### L [id number] ####[facility] ([facility])[address] [place] [address] Calcium [Mass/Vol] 8.2 mg/dL Low 8.6-10.3 [facility] Comment on above: Performed By: #### L [id number] ####[facility] LAB (BEAKER)[address] [place] [address] Chloride [Moles/Vol] 112 mmol/L High 98-[address] [facility] Comment on above: Performed By: #### L [id number] ####[facility] LAB (BEAKER)[address] [place] [address] CO2 [Moles/Vol] 23 mmol/L Normal 21-31 [facility] Comment on above: Performed By: #### L [id number] ####[facility] LAB (BEAKER)[address] [place] [address] Creatinine [Mass/Vol] 0.64 mg/dL Low 0.70-1.[address] [facility] Comment on above: Performed By: #### L [id number] ####[facility] LAB ([facility])[address] [address] GLOMERULAR FILTRATION RATE ML/MIN/1.73 SQ M.PREDICTED 102.5 mL/min/1.73m*2 Normal >60.[address] [facility] Comment on above: Result Comment: [facility]???s estimated glomerular filtration rate (eGFR) will [...] of individuals. Performed By: #### L [id number] ####[facility] ([facility])[address] [place] [address] Glucose [Mass/Vol] 116 mg/dL High 70-100 [facility] Comment on above: Performed By: #### L [id number] ####[facility] ([facility])[address] [place] [address] Potassium [Moles/Vol] 3.9 mmol/L Normal 3.5-5.[address] [facility] Comment on above: Performed By: #### L [id number] ####[facility] ([facility])[address] [place] [address] Sodium [Moles/Vol] 142 mmol/L Normal 136-145 [facility] Comment on above: Performed By: #### L [id number] ####[facility] ([facility])[address] [place] [address] Urea nitrogen [Mass/Vol] 22 mg/dL Normal 7-[address] [facility] Comment on above: Performed By: #### L [id number] ####[facility] LAB (BEAKER)[address] [place] [address] UREA NITROGEN/CREATININ E (MASS RATIO) IN SER/PLAS 34.[address] [facility] Comment on above: Performed By: #### L [id number] ####[facility] ([facility])[address] [place] [address] CBC WITH AUTO DIFFERENTIALon 04-27-2023 Basophils (Bld) [#/Vol] 0.02 10*3/uL Normal 0.00-0.[address] [facility] Comment on above: Performed By: #### L [id number] ####[facility] ([facility])[address] [place] [address] Basophils/100 WBC (Bld) 0.2 % Normal 0.0-1.[address] [facility] Comment on above: Performed By: #### L [id number] ####[facility] ([facility])[address] [place] [address] Eosinophils (Bld) [#/Vol] 0.05 10*3/uL Normal 0.00-0.[address] [facility] Comment on above: Performed By: #### L [id number] ####[facility] ([facility])[address] [place] [address] Eosinophils/100 WBC (Bld) 0.5 % Normal 0.0-6.[address] [facility] Comment on above: Performed By: #### L [id number] ####[facility] ([facility])[address] [place] [address] Erythrocyte distribution width (RBC) [Ratio] 13.6 % Normal 11.5-15.[address] [facility] Comment on above: Performed By: #### L [id number] ####[facility] ([facility])[address] [place] [address] ERYTHROCYTE MEAN CORPUSCULAR HEMOGLOBIN CONCENTRATION (G/DL) BY AUTOMATED 33.7 g/dL Normal 32.0-35.[address] [facility] Comment on above: Performed By: #### L [id number] ####[facility] ([facility])[address] [place] [address] Hematocrit (Bld) [Volume fraction] 26.4 % Low 39.0-55.[address] [facility] Comment on above: Performed By: #### L [id number] ####[facility] LAB (BEAKER)[address] [place] [address] Hemoglobin (Bld) [Mass/Vol] 8.9 g/dL Low 13.0-17.[address] [facility] Comment on above: Performed By: #### L [id number] ####[facility] LAB (BEAKER)[address] [place] [address] Immature granulocytes (Bld) [#/Vol] 0.07 10*3/uL Normal 0.00-0.[address] [facility] Comment on above: Performed By: #### L [id number] ####[facility] LAB (BEAKER)[address] [place] [address] Immature granulocytes/100 WBC (Bld) 0.8 % Normal 0.0-1.[address] [facility] Comment on above: Performed By: #### L [id number] ####[facility] LAB (BEAKER)[address] [place] [address] Lymphocytes (Bld) [#/Vol] 1.24 10*3/uL Normal 1.20-4.[address] [facility] Comment on above: Performed By: #### L [id number] ####[facility] LAB (BEAKER)[address] [place] [address] Lymphocytes/100 WBC (Bld) 13.3 % Low 20.0-45.[address] [facility] Comment on above: Performed By: #### L [id number] ####[facility] LAB (BEAKER)[address] [place] [address] MCH (RBC) [Entitic mass] 30.5 pg Normal 27.0-33.[address] [facility] Comment on above: Performed By: #### L [id number] ####[facility] LAB (BEAKER)[address] [place] [address] MCV (RBC) [Entitic vol] 90.4 fL Normal 82.0-98.[address] [facility] Comment on above: Performed By: #### L [id number] ####[facility] LAB (BEAKER)[address] [place] [address] Monocytes (Bld) [#/Vol] 0.72 10*3/uL Normal 0.10-1.[address] [facility] Comment on above: Performed By: #### L [id number] ####[facility] ([facility])[address] [place] [address] Monocytes/100 WBC (Bld) 7.7 % Normal 5.0-12.[address] [facility] Comment on above: Performed By: #### L [id number] ####[facility] ([facility])[address] [place] [address] Neutrophils (Bld) [#/Vol] 7.22 10*3/uL Normal 1.60-7.[address] [facility] Comment on above: Performed By: #### L [id number] ####[facility] ([facility])[address] [place] [address] Neutrophils/100 WBC (Bld) 77.5 % High 40.0-72.[address] [facility] Comment on above: Performed By: #### L [id number] ####[facility] ([facility])[address] [place] [address] NRBC (PER 100 WBCS) BY AUTOMATED COUNT 0.0 % Normal [address] [facility] Comment on above: Performed By: #### L [id number] ####[facility] ([facility])[address] [place] [address] PLATELETS (10*3/UL) IN BLOOD AUTOMATED COUNT 100 10*3/uL Low 150-[address] [facility] Comment on above: Performed By: #### L [id number] ####[facility] LAB (BEAKER)[address] [place] [address] RBC (Bld) [#/Vol] 2.92 10*6/uL Low 4.20-5.70 [facility] Comment on above: Performed By: #### L [id number] ####[facility] ([facility])[address] [place] [address] WBC (Bld) [#/Vol] 9.32 10*3/uL Normal 4.00-10.60 [facility] Comment on above: Performed By: #### L [id number] ####[facility] ([facility])[address] [place] [address] MAGNESIUMon 04-27-2023 Magnesium [Mass/Vol] 1.9 mg/dL Normal 1.9-2.[address] [facility] Comment on above: Performed By: #### L [id number] ####[facility] ([facility])[address] [place] [address] PHOSPHORUSon 04-27-2023 Magnesium [Mass/Vol] 3.5 mg/dL Normal 2.5-5.[address] [facility] Comment on above: Performed By: #### L [id number] ####[facility] ([facility])[address] [place] [address] POCT GLUCOSE METER UNSOLICIT ED RESULTSon 04-27-2023 Glucose [Mass/Vol] 100 mg/dL Normal 70-105 [facility] Comment on above: Order Comment: Waive d Testing in the ED is performed under the ED CLIA certificate #[id number]. Result Comment: [email or web address] [email or web address] Performed By: #### L [id number] ####[facility] ([facility])[address] [place] [address] Glucose [Mass/Vol] 165 mg/dL High 70-105 [facility] Comment on above: Order Comment: Waive d Testing in the ED is performed under the ED CLIA certificate #[id number]. Result Comment: [email or web address] Performed By: #### L [id number] ####[facility] ([facility])[address] [place] [address] Glucose [Mass/Vol] 157 mg/dL High 70-105 [facility] Comment on above: Order Comment: Waive d Testing in the ED is performed under the ED CLIA certificate #[id number]. Result Comment: [email or web address] Performed By: #### L [id number] ####[facility] LAB ([facility])[address] [place] [address] Glucose [Mass/Vol] 112 mg/dL High 70-105 [facility] Comment on above: Order Comment: Waive d Testing in the ED is performed under the ED CLIA certificate #[id number]. Result Comment: [email or web address] [email or web address] Performed By: #### L [id number] ####[facility] ([employer])[address] [place] [address] PROTIME-INRon 04-27-2023 INR IN PPP BY COAGULATION ASSAY 1.21 High 0.90-1.[address] [facility] Comment on above: Result Comment: ACCC [...] CHEST 1995;[id number]. Performed By: #### L [id number] ####[facility] ([employer])[address] [place] [address] PROTHROMBIN TIME (PT) IN PPP BY COAGULATION ASSAY 15.3 Seconds High 12.3-14.[address] [facility] Comment on above: Performed By: #### L [id number] ####[facility] LAB (BEAKER)[address] [place] [address] 30on 04-26-[address] [facility] [address] [facility] [address] [facility] [address] [facility] BASIC METABOLIC PANELon 11- Anion gap [Moles/Vol] 10 mmol/L Normal 7-[address] [facility] Comment on above: Performed By: #### L [id number] ####[facility] LAB (BEAKER)[address] [place] [address] Calcium [Mass/Vol] 8.5 mg/dL Low 8.6-10.3 [facility] Comment on above: Performed By: #### L [id number] ####[facility] LAB (BEAKER)[address] [place] [address] Chloride [Moles/Vol] 109 mmol/L High 98-[address] [facility] Comment on above: Performed By: #### L [id number] ####[facility] LAB (BEAKER)[address] [place] [address] CO2 [Moles/Vol] 25 mmol/L Normal 21-31 [facility] Comment on above: Performed By: #### L [id number] ####[facility] LAB (BEAKER)[address] [place] [address] Creatinine [Mass/Vol] 0.62 mg/dL Low 0.70-1.[address] [facility] Comment on above: Performed By: #### L [id number] ####[facility] LAB (BEAKER)[address] [place] [address] GLOMERULAR FILTRATION RATE ML/MIN/1.73 SQ M.PREDICTED 103.5 mL/min/1.73m*2 Normal >60.[address] [facility] Comment on above: Result Comment: The [facility]???s estimated glomerular filtration rate (eGFR) will [...] of individuals. Performed By: #### L [id number] ####[facility] ([facility])[address] [place] [address] Glucose [Mass/Vol] 136 mg/dL High 70-100 [facility] Comment on above: Performed By: #### L [id number] ####[facility] ([facility])[address] [place] [address] Potassium [Moles/Vol] 3.6 mmol/L Normal 3.5-5.[address] [facility] Comment on above: Performed By: #### L [id number] ####[facility] ([facility])[address] [place] [address] Sodium [Moles/Vol] 140 mmol/L Normal 136-145 [facility] Comment on above: Performed By: #### L [id number] ####[facility] ([facility])[address] [place] [address] Urea nitrogen [Mass/Vol] 18 mg/dL Normal 7-[address] [facility] Comment on above: Performed By: #### L [id number] ####[facility] ([facility])[address] [place] [address] UREA NITROGEN/CREATININ E (MASS RATIO) IN SER/PLAS 29.[address] [facility] Comment on above: Performed By: #### L [id number] ####[facility] ([facility])[address] [place] [address] Anion gap [Moles/Vol] 9 mmol/L Normal 7-[address] [facility] Comment on above: Performed By: #### L [id number] ####[facility] ([facility])[address] [place] [address] Calcium [Mass/Vol] 7.8 mg/dL Low 8.6-10.3 [facility] Comment on above: Performed By: #### L [id number] ####[facility] LAB (BEAKER)[address] [place] [address] Chloride [Moles/Vol] 112 mmol/L High 98-[address] [facility] Comment on above: Performed By: #### L [id number] ####[facility] LAB (BEAKER)[address] [place] [address] CO2 [Moles/Vol] 23 mmol/L Normal 21-31 [facility] Comment on above: Performed By: #### L [id number] ####[facility] ([facility])[address] [place] [address] Creatinine [Mass/Vol] 0.61 mg/dL Low 0.70-1.[address] [facility] Comment on above: Performed By: #### L [id number] ####[facility] ([facility])[address] [place] [address] GLOMERULAR FILTRATION RATE ML/MIN/1.73 SQ M.PREDICTED 104.0 mL/min/1.73m*2 Normal >60.[address] [facility] Comment on above: Result Comment: [facility]???s estimated glomerular filtration rate (eGFR) will [...] of individuals. Performed By: #### L [id number] ####[facility] (BEAKER)[address] [place] [address] Glucose [Mass/Vol] 112 mg/dL High 70-100 [facility] Comment on above: Performed By: #### L [id number] ####[facility] LAB (BEAKER)[address] [place] [address] Potassium [Moles/Vol] 3.4 mmol/L Low 3.5-5.[address] [facility] Comment on above: Performed By: #### L [id number] ####[facility] ([facility])[address] [place] [address] Sodium [Moles/Vol] 141 mmol/L Normal 136-145 [facility] Comment on above: Performed By: #### L [id number] ####[facility] ([facility])[address] [address] Urea nitrogen [Mass/Vol] 14 mg/dL Normal 7-[address] [facility] Comment on above: Performed By: #### L [id number] ####[facility] ([facility])[address] [address] UREA NITROGEN/CREATININ E (MASS RATIO) IN SER/PLAS 23.[address] [facility] Comment on above: Performed By: #### L [id number] ####[facility] ([facility])[address] [place] [address] CBCon 04-26-2023 Erythrocyte distribution width (RBC) [Ratio] 13.9 % Normal 11.5-15.[address] [facility] Comment on above: Performed By: #### L [id number] ####[facility] ([facility])[address] [address] ERYTHROCYTE MEAN CORPUSCULAR HEMOGLOBIN CONCENTRATION (G/DL) BY AUTOMATED 33.7 g/dL Normal 32.0-35.[address] [facility] Comment on above: Performed By: #### L [id number] ####[facility] ([facility])[address] [place] [address] Hematocrit (Bld) [Volume fraction] 24.3 % Low 39.0-55.[address] [facility] Comment on above: Performed By: #### L [id number] ####[facility] ([facility])[address] [address] Hemoglobin (Bld) [Mass/Vol] 8.2 g/dL Low 13.0-17.[address] [facility] Comment on above: Performed By: #### L [id number] ####[facility] ([facility])[address] [place] [address] IMMATURE PLATELET FRACTION % 4.3 % Normal 0.8-6.[address] [facility] Comment on above: Performed By: #### L [id number] ####[facility] ([facility])[address] [place] [address] MCH (RBC) [Entitic mass] 30.4 pg Normal 27.0-33.[address] [facility] Comment on above: Performed By: #### L [id number] ####[facility] ([facility])[address] [place] [address] MCV (RBC) [Entitic vol] 90.0 fL Normal 82.0-98.[address] [facility] Comment on above: Performed By: #### L [id number] ####[facility] ([facility])[address] [place] [address] PLATELETS (10*3/UL) IN BLOOD AUTOMATED COUNT 71 10*3/uL Low 150-[address] [facility] Comment on above: Performed By: #### L [id number] ####[facility] ([facility])[address] [place] [address] RBC (Bld) [#/Vol] 2.70 10*6/uL Low 4.20-5.70 [facility] Comment on above: Performed By: #### L [id number] ####[facility] [facility] ([facility])[address] [place] [address] WBC (Bld) [#/Vol] 7.74 10*3/uL Normal 4.00-10.60 [facility] Comment on above: Performed By: #### L [id number] ####[facility] ([facility])[address] [place] [address] CO-OXIMETRYon 04-26-2023 CARBOXYHEMOGLOBIN/ HEMOGLOBIN TOTAL % IN BLOOD 1.4 % Normal [facility] Comment on above: Performed By: #### L [id number] ####[facility] RESPIRAT[facility] [id number] [place] [address] [facility] Hemoglobin (Bld) [Mass/Vol] 8.5 g/dL Normal [facility] Comment on above: Performed By: #### L [id number] ####[facility]IR[facility] [id number] [place] [address] [place] METHEMOGLOBIN/100 IN BLOOD 0.3 % Normal 0.0-1.[address] [facility] Comment on above: Performed By: #### L [id number] ####[facility] RESPIRAT[facility] [id number] [place] [address] [place] Oxygen saturation in Blood 57.1 % Normal [facility] Comment on above: Performed By: #### L [id number] ####[facility]IR[facility] [id number] [place] [address] [facility] OXYGENATED HEMOGLOBIN IN BLOOD 56.1 % Normal [facility] Comment on above: Performed By: #### L [id number] ####[facility]PIRAT[facility] [id number] [place] [address] [facility] IRON AND TIBCon 04-26-2023 IRON (UG/DL) IN SER/PLAS 16 ug/dL Low 50-[address] [facility] Comment on above: Performed By: #### L [id number] ####[facility] ([facility])[address] [place] [address] IRON BINDING CAPACITY (UG/DL) IN SER/PLAS 143 ug/dL Low 250-[address] [facility] Comment on above: Performed By: #### L [id number] ####[facility] ([facility])[address] [place] [address] IRON BINDING CAPACITY.UNSATURAT ED (UG/DL) IN SER/PLAS 127.0 ug/dL Low 155.0-355.[address] [facility] Comment on above: Performed By: #### L [id number] ####[facility] ([facility])[address] [place] [address] IRON SATURATION (%) IN SER/PLAS 11 % Low 20-[address] [facility] Comment on above: Performed By: #### L [id number] ####[facility] ([facility])[address] [place] [address] LACTIC ACID, PLASMAon 2022 LACTATE (MMOL/L) IN SER/PLAS 0.6 mmol/L Normal 0.5-2.[address] [facility] Comment on above: Performed By: #### L [id number] ####[facility] ([facility])[address] [place] [address] MAGNESIUMon 04-26-2023 Magnesium [Mass/Vol] 1.6 mg/dL Low 1.9-2.[address] [facility] Comment on above: Performed By: #### L [id number] ####[facility] ([facility])[address] [place] [address] Magnesium [Mass/Vol] 1.7 mg/dL Low 1.9-2.[address] [facility] Comment on above: Performed By: #### L [id number] ####[facility] ([facility])[address] [place] [address] PHOSPHORUSon 04-26-2023 Magnesium [Mass/Vol] 3.4 mg/dL Normal 2.5-5.[address] [facility] Comment on above: Performed By: #### L [id number] ####[facility] ([facility])[address] [place] [address] Magnesium [Mass/Vol] 3.7 mg/dL Normal 2.5-5.[address] [facility] Comment on above: Performed By: #### L [id number] ####[facility] ([facility])[address] [place] [address] POCT GLUCOSE METER UNSOLICIT ED RESULTSon 04-26-2023 Glucose [Mass/Vol] 134 mg/dL High 70-105 [facility] Comment on above: Order Comment: Waive d Testing in the ED is performed under the ED CLIA certificate #[id number]. Result Comment: [email or web address] Performed By: #### L [id number] ####[facility] ([facility])[address] [place] [address] Glucose [Mass/Vol] 129 mg/dL High 70-105 [facility] Comment on above: Order Comment: Waive d Testing in the ED is performed under the ED CLIA certificate #[id number]. Result Comment: [email or web address] Performed By: #### L [id number] ####[facility] ([facility])[address] [place] [address] Glucose [Mass/Vol] 121 mg/dL High 70-105 [facility] Comment on above: Order Comment: Waive d Testing in the ED is performed under the ED CLIA certificate #[id number]. Result Comment: than sen2 Performed By: #### L [id number] ####[facility] ([facility])[address] [place] [address] Glucose [Mass/Vol] 113 mg/dL High 70-105 [facility] Comment on above: Order Comment: Waive d Testing in the ED is performed under the ED CLIA certificate #[id number]. Result Comment: than sen2 Performed By: #### L [id number] ####[facility] ([facility])[address] [place] [address] PREALBUMINon 04-26-2023 Prealbumin [Mass/Vol] 6.4 mg/dL Normal [facility] Comment on above: Performed By: #### L [id number] ####[facility] ([facility])[address] [place] [address] TRANSFERRINon 04-26-2023 Magnesium [Mass/Vol] 82 mg/dL Low 168-[address] [facility] Comment on above: Performed By: #### L [id number] ####[facility] ([facility])[address] [place] [address] 30on 04-25-[address] [facility] AMMONIAon 04-25-2023 AMMONIA (UMOL/L) IN PLASMA 39 umol/L Normal 18-[address] [facility] Comment on above: Performed By: #### L [id number] ####[facility] ([facility])[address] [place] [address] APTTon 04-25-2023 ACTIVATED PARTIAL THROMBOPLASTIN TIME IN PPP BY COAGULATION ASSAY 37.2 Seconds High 25.0-35.[address] [facility] Comment on above: Result Comment: Clin ical significance of the APTT is questionable in the presence of heparin. Performed By: #### L [id number] ####[facility] ([facility])[address] [place] [address] BASIC METABOLIC PANELon 11-0 Anion gap [Moles/Vol] 9 mmol/L Normal 7-[address] [facility] Comment on above: Performed By: #### L [id number] ####[facility] [place] [address] Calcium [Mass/Vol] 8.2 mg/dL Low 8.6-10.3 [facility] Comment on above: Performed By: #### L [id number] ####[facility] [place] [address] Chloride [Moles/Vol] 111 mmol/L High 98-[address] [facility] Comment on above: Performed By: #### L [id number] ####[facility] ([facility])[address] [place] [address] CO2 [Moles/Vol] 24 mmol/L Normal 21-31 [facility] Comment on above: Performed By: #### L [id number] ####[facility] ([facility])[address] [place] [address] Creatinine [Mass/Vol] 0.71 mg/dL Normal 0.70-1.[address] [facility] Comment on above: Performed By: #### L [id number] ####[facility] ([facility])[address] [place] [address] GLOMERULAR FILTRATION RATE ML/MIN/1.73 SQ M.PREDICTED 99.3 mL/min/1.73m*2 Normal >60.[address] [facility] Comment on above: Result Comment: [facility]???s estimated glomerular filtration rate (eGFR) will [...] of individuals. Performed By: #### L [id number] ####[facility] ([facility])[address] [place] [address] Glucose [Mass/Vol] 124 mg/dL High 70-100 [facility] Comment on above: Performed By: #### L [id number] ####[facility] ([facility])[address] [place] [address] Potassium [Moles/Vol] 3.9 mmol/L Normal 3.5-5.[address] [facility] Comment on above: Performed By: #### L [id number] ####[facility] ([facility])[address] [place] [address] Sodium [Moles/Vol] 140 mmol/L Normal 136-145 [facility] Comment on above: Performed By: #### L [id number] ####[facility] ([facility])[address] [place] [address] Urea nitrogen [Mass/Vol] 17 mg/dL Normal 7-[address] [facility] Comment on above: Performed By: #### L [id number] ####[facility] ([facility])[address] [place] [address] UREA NITROGEN/CREATININ E (MASS RATIO) IN SER/PLAS 23.[address] [facility] Comment on above: Performed By: #### L [id number] ####[facility] ([facility])[address] [place] [address] CBCon 04-25-2023 Erythrocyte distribution width (RBC) [Ratio] 14.0 % Normal 11.5-15.[address] [facility] Comment on above: Performed By: #### L [id number] ####[facility] ([facility])[address] [place] [address] ERYTHROCYTE MEAN CORPUSCULAR HEMOGLOBIN CONCENTRATION (G/DL) BY AUTOMATED 34.1 g/dL Normal 32.0-35.[address] [facility] Comment on above: Performed By: #### L [id number] ####[facility] ([facility])[address] [place] [address] Hematocrit (Bld) [Volume fraction] 24.9 % Low 39.0-55.[address] [facility] Comment on above: Performed By: #### L [id number] ####[facility] ([facility])[address] [place] [address] Hemoglobin (Bld) [Mass/Vol] 8.5 g/dL Low 13.0-17.[address] [facility] Comment on above: Performed By: #### L [id number] ####[facility] ([facility])[address] [place] [address] IMMATURE PLATELET FRACTION % 5.1 % Normal 0.8-6.[address] [facility] Comment on above: Performed By: #### L [id number] ####[facility] ([facility])[address] [place] [address] MCH (RBC) [Entitic mass] 30.7 pg Normal 27.0-33.[address] [facility] Comment on above: Performed By: #### L [id number] ####[facility] ([facility])[address] [place] [address] MCV (RBC) [Entitic vol] 89.9 fL Normal 82.0-98.[address] [facility] Comment on above: Performed By: #### L [id number] ####[facility] ([facility])[address] [place] [address] PLATELETS (10*3/UL) IN BLOOD AUTOMATED COUNT 55 10*3/uL Low 150-[address] [facility] Comment on above: Performed By: #### L [id number] ####[facility] ([facility])[address] [place] [address] RBC (Bld) [#/Vol] 2.77 10*6/uL Low 4.20-5.70 [facility] Comment on above: Performed By: #### L [id number] ####[facility] ([facility])[address] [place] [address] WBC (Bld) [#/Vol] 9.29 10*3/uL Normal 4.00-10.60 [facility] Comment on above: Performed By: #### L [id number] ####[facility] ([facility])[address] [place] [address] Erythrocyte distribution width (RBC) [Ratio] 14.6 % Normal 11.5-15.[address] [facility] Comment on above: Performed By: #### L [id number] ####[facility] ([facility])[address] [place] [address] ERYTHROCYTE MEAN CORPUSCULAR HEMOGLOBIN CONCENTRATION (G/DL) BY AUTOMATED 34.1 g/dL Normal 32.0-35.[address] [facility] Comment on above: Performed By: #### L [id number] ####[facility] ([facility])[address] [place] [address] Hematocrit (Bld) [Volume fraction] 25.5 % Low 39.0-55.[address] [facility] Comment on above: Performed By: #### L [id number] ####[facility] [place] [address] Hemoglobin (Bld) [Mass/Vol] 8.7 g/dL Low 13.0-17.[address] [facility] Comment on above: Performed By: #### L [id number] ####[facility] ([facility])[address] [place] [address] IMMATURE PLATELET FRACTION % 5.5 % Normal 0.8-6.[address] [facility] Comment on above: Performed By: #### L [id number] ####[facility] ([facility])[address] [place] [address] MCH (RBC) [Entitic mass] 31.0 pg Normal 27.0-33.[address] [facility] Comment on above: Performed By: #### L [id number] ####[facility] ([facility])[address] [place] [address] MCV (RBC) [Entitic vol] 90.7 fL Normal 82.0-98.[address] [facility] Comment on above: Performed By: #### L [id number] ####[facility] ([facility])[address] [place] [address] PLATELETS (10*3/UL) IN BLOOD AUTOMATED COUNT 56 10*3/uL Low 150-[address] [facility] Comment on above: Result Comment: P=69 , 1D Performed By: #### L [id number] ####[facility] ([facility])[address] [place] [address] RBC (Bld) [#/Vol] 2.81 10*6/uL Low 4.20-5.70 [facility] Comment on above: Performed By: #### L [id number] ####[facility] ([facility])[address] [place] [address] WBC (Bld) [#/Vol] 10.33 10*3/uL Normal 4.00-10.60 [facility] Comment on above: Performed By: #### L [id number] ####[facility] ([facility])[address] [place] [address] CO-OXIMETRYon 04-25-2023 CARBOXYHEMOGLOBIN/ HEMOGLOBIN TOTAL % IN BLOOD 0.8 % Normal [facility] Comment on above: Performed By: #### L [id number] ####[facility]PIRAT[facility] [id number] [place] [address] [place] Hemoglobin (Bld) [Mass/Vol] 7.8 g/dL Normal [facility] Comment on above: Performed By: #### L [id number] ####[facility] RESPIR[facility] [id number] [place] [address] [place] METHEMOGLOBIN/100 IN BLOOD 1.1 % Normal 0.0-1.[address] [facility] Comment on above: Performed By: #### L [id number] ####[facility] RESPIR[facility] [id number] [place] [address] [place] Oxygen saturation in Blood 70.2 % Normal [facility] Comment on above: Performed By: #### L [id number] ####[facility]PIR[facility] [id number] [place] [address] [place] OXYGENATED HEMOGLOBIN IN BLOOD 68.8 % Normal [facility] Comment on above: Performed By: #### L [id number] ####[facility]PIR[facility] [id number] [place] [address] [facility] HEPATIC FUNCTION PANELon Albumin [Mass/Vol] 3.3 g/dL Low 3.5-5.7 [facility] Comment on above: Performed By: #### L [id number] ####[facility] ([facility])[address] [place] [address] ALP [Catalytic activity/Vol] 49 U/L Normal 34-[address] [facility] Comment on above: Performed By: #### L [id number] ####[facility] ([facility])[address] [place] [address] ALT [Catalytic activity/Vol] 60 U/L High 7-[address] [facility] Comment on above: Performed By: #### L [id number] ####[facility] ([facility])[address] [place] [address] AST [Catalytic activity/Vol] 127 U/L High 13-[address] [facility] Comment on above: Performed By: #### L [id number] ####[facility] ([facility])[address] [place] [address] Bilirubin [Mass/Vol] 0.5 mg/dL Normal 0.3-1.[address] [facility] Comment on above: Performed By: #### L [id number] ####[facility] ([facility])[address] [place] [address] Magnesium [Mass/Vol] 0.2 mg/dL Normal 0-0.[address] [facility] Comment on above: Performed By: #### L [id number] ####[facility] ([facility])[address] [place] [address] Protein [Mass/Vol] 4.8 g/dL Low 6.0-8.3 [facility] Comment on above: Performed By: #### L [id number] ####[facility] ([facility])[address] [place] [address] LACTIC ACID WITH 4 HOUR REFL EXon 04-25-2023 LACTATE (MMOL/L) IN SER/PLAS 1.4 mmol/L Normal 0.5-2.[address] [facility] Comment on above: Performed By: #### L [id number] ####[facility] ([facility])[address] [place] [address] MAGNESIUMon 04-25-2023 Magnesium [Mass/Vol] 1.7 mg/dL Low 1.9-2.[address] [facility] Comment on above: Performed By: #### L [id number] ####[facility] ([facility])[address] [place] [address] NURSNOTEon 04-25-[address] [facility] NURSNOTE Normal [facility] PHOSPHORUSon 04-25-2023 Magnesium [Mass/Vol] 2.3 mg/dL Low 2.5-5.[address] [facility] Comment on above: Performed By: #### L [id number] ####[facility] ([facility])[address] [place] [address] POCT GLUCOSE METER UNSOLICIT ED RESULTSon 04-25-2023 Glucose [Mass/Vol] 106 mg/dL High 70-105 [facility] Comment on above: Order Comment: Waive d Testing in the ED is performed under the ED CLIA certificate #[id number]. Result Comment: rsuz suraj Performed By: #### L [id number] ####[facility] ([facility])[address] [place] [address] Glucose [Mass/Vol] 128 mg/dL High 70-105 [facility] Comment on above: Order Comment: Waive d Testing in the ED is performed under the ED CLIA certificate #[id number]. Result Comment: [facility] [id number] Performed By: #### L [id number] ####[facility] ([place])[address] [place] [address] PROTIME-INRon 04-25-2023 INR IN PPP BY COAGULATION ASSAY 1.34 High 0.90-1.[address] [facility] Comment on above: Result Comment: [facility] RECOMMENDED INR FOR WARFARIN THERAPY CONDITION INRPROPHYLAXIS OF VENOUS THROMBOSIS 2-3(HIGH-RISK SURGERY)TREATMENT OF VENOUS THROMBOSIS 2-3TREATMENT OF PULMONARY EMBOLISM 2-3PREVENTION OF SYSTEMIC EMBOLISM: 2-3 ACUTE MYOCARDIAL INFARCTION TISSUE HEART VALVES VALVULAR HEART DISEASE ATRIAL FIBRILLATION RECURRENT SYSTEMIC EMBOLISMMECHANICAL HEART VALVE 2.5-3.5 FROM: ORAL ANTICOAGULANTS. MECHANISM OF ACTION, CLINICAL EFFECTIVENESS, AND OPTIMAL THERAPEUTIC RANGE. CHEST 1995;108:231S-246S. Performed By: #### L [id number] ####[facility] ([place])[address] [place] [address] PROTHROMBIN TIME (PT) IN PPP BY COAGULATION ASSAY 16.6 Seconds High 12.3-14.[address] [facility] Comment on above: Performed By: #### L [id number] ####[facility] ([place])[address] [place] [address] INR IN PPP BY COAGULATION ASSAY 1.39 High 0.90-1.[address] [facility] Comment on above: Result Comment: [facility] RECOMMENDED INR FOR WARFARIN THERAPY CONDITION INRPROPHYLAXIS OF VENOUS THROMBOSIS 2-3(HIGH-RISK SURGERY)TREATMENT OF VENOUS THROMBOSIS 2-3TREATMENT OF PULMONARY EMBOLISM 2-3PREVENTION OF SYSTEMIC EMBOLISM: 2-3 ACUTE MYOCARDIAL INFARCTION TISSUE HEART VALVES VALVULAR HEART DISEASE ATRIAL FIBRILLATION RECURRENT SYSTEMIC EMBOLISMMECHANICAL HEART VALVE 2.5-3.5 FROM: ORAL ANTICOAGULANTS. MECHANISM OF ACTION, CLINICAL EFFECTIVENESS, AND OPTIMAL THERAPEUTIC RANGE. CHEST 1995;108:231S-246S. Performed By: #### L [id number] ####[facility] ([facility])[address] [place] [address] PROTHROMBIN TIME (PT) IN PPP BY COAGULATION ASSAY 17.1 Seconds High 12.3-14.[address] [facility] Comment on above: Performed By: #### L [id number] ####[facility] ([facility])[address] [place] [address] 30on 04-24-[address] [facility] [address] [facility] [address] [facility] ARTERIAL BLOOD GAS WITH IONI ZED CALCIUMon 04-24-2023 Base excess Calc (Bld) [Moles/Vol] -2.0000 mmol/L Normal -2.0-3.[address] [facility] Comment on above: Performed By: #### L [id number] ####[facility]PIR[facility] [id number] [place] [address] [place] CALCIUM IONIZED (MMOL/L) IN BLOOD 1.06 mmol/L Low 1.15-1.[address] [facility] Comment on above: Performed By: #### L [id number] ####[facility]IR[facility] [id number] [place] [address] [place] CO2 (Bld) [Partial pressure] 31 mm[Hg] Low 35-[address] [facility] Comment on above: Performed By: #### L [id number] ####[facility]IR[facility] [id number] [place] [address] [facility] HCO3 (Bld) [Moles/Vol] 21.5 mmol/L Normal 21.0-28.[address] [facility] Comment on above: Performed By: #### L [id number] ####[facility]PIR[facility] [id number] [place] [address] [facility] Oxygen (Bld) [Partial pressure] 118 mm[Hg] High 83-[address] [facility] Comment on above: Performed By: #### L [id number] ####[facility]PIR[facility] [id number] [place] [address] [facility] OXYGEN SATURATION (%) IN ARTERIAL BLOOD 99.4 % High 94.0-98.[address] [facility] Comment on above: Performed By: #### L [id number] ####[facility]PIR[facility] [id number] [place] [address] [facility] pH (Bld) 7.45 [pH] Normal 7.35-7.[address] [facility] Comment on above: Performed By: #### L [id number] ####[facility]PIR[facility] [id number] [place] [address] [facility] SOURCE OF OXYGEN AC/VC Normal [facility] Comment on above: Performed By: #### L [id number] ####[facility]PIR[facility] [id number] [place] [address] [facility] TIDAL VOLUME (VT) CC [address] [facility] Comment on above: Performed By: #### L [id number] ####[facility]PIR[facility] [id number] [place] [address] [facility] BASIC METABOLIC PANELon 11-0 Anion gap [Moles/Vol] 10 mmol/L Normal 7-[address] [facility] Comment on above: Performed By: #### L [id number] ####[facility] ([facility])[address] [place] [address] Calcium [Mass/Vol] 8.5 mg/dL Low 8.6-10.3 [facility] Comment on above: Performed By: #### L [id number] ####[facility] ([facility])[address] [place] [address] Chloride [Moles/Vol] 113 mmol/L High 98-[address] [facility] Comment on above: Performed By: #### L [id number] ####[facility] ([facility])[address] [place] [address] CO2 [Moles/Vol] 24 mmol/L Normal 21-31 [facility] Comment on above: Performed By: #### L [id number] ####[facility] [place] [address] Creatinine [Mass/Vol] 0.83 mg/dL Normal 0.70-1.[address] [facility] Comment on above: Performed By: #### L [id number] ####[facility] ([facility])[address] [place] [address] GLOMERULAR FILTRATION RATE ML/MIN/1.73 SQ M.PREDICTED 94.7 mL/min/1.73m*2 Normal >60.[address] [facility] Comment on above: Result Comment: [facility]???s estimated glomerular filtration rate (eGFR) will [...] of individuals. Performed By: #### L [id number] ####[facility] [place] [address] Glucose [Mass/Vol] 208 mg/dL High 70-100 [facility] Comment on above: Performed By: #### L [id number] ####[facility] ([facility])[address] [place] [address] Potassium [Moles/Vol] 3.6 mmol/L Normal 3.5-5.[address] [facility] Comment on above: Performed By: #### L [id number] ####[facility] ([facility])[address] [place] [address] Sodium [Moles/Vol] 143 mmol/L Normal 136-145 [facility] Comment on above: Performed By: #### L [id number] ####[facility] ([facility])[address] [place] [address] Urea nitrogen [Mass/Vol] 19 mg/dL Normal 7-[address] [facility] Comment on above: Performed By: #### L [id number] ####[facility] ([facility])[address] [place] [address] UREA NITROGEN/CREATININ E (MASS RATIO) IN SER/PLAS 22.[address] [facility] Comment on above: Performed By: #### L [id number] ####[facility] ([facility])[address] [place] [address] CBCon 04-24-2023 Erythrocyte distribution width (RBC) [Ratio] 13.9 % Normal 11.5-15.[address] [facility] Comment on above: Performed By: #### L [id number] ####[facility] ([facility])[address] [place] [address] ERYTHROCYTE MEAN CORPUSCULAR HEMOGLOBIN CONCENTRATION (G/DL) BY AUTOMATED 34.3 g/dL Normal 32.0-35.[address] [facility] Comment on above: Performed By: #### L [id number] ####[facility] ([facility])[address] [place] [address] Hematocrit (Bld) [Volume fraction] 28.0 % Low 39.0-55.[address] [facility] Comment on above: Performed By: #### L [id number] ####[facility] ([facility])[address] [place] [address] Hemoglobin (Bld) [Mass/Vol] 9.6 g/dL Low 13.0-17.[address] [facility] Comment on above: Performed By: #### L [id number] ####[facility] ([facility])[address] [place] [address] IMMATURE PLATELET FRACTION % 5.1 % Normal 0.8-6.[address] [facility] Comment on above: Performed By: #### L [id number] ####[facility] ([facility])[address] [place] [address] MCH (RBC) [Entitic mass] 30.7 pg Normal 27.0-33.[address] [facility] Comment on above: Performed By: #### L [id number] ####[facility] ([facility])[address] [place] [address] MCV (RBC) [Entitic vol] 89.5 fL Normal 82.0-98.[address] [facility] Comment on above: Performed By: #### L [id number] ####[facility] ([facility])[address] [place] [address] PLATELETS (10*3/UL) IN BLOOD AUTOMATED COUNT 69 10*3/uL Low 150-[address] [facility] Comment on above: Performed By: #### L [id number] ####[facility] ([facility])[address] [place] [address] RBC (Bld) [#/Vol] 3.13 10*6/uL Low 4.20-5.70 [facility] Comment on above: Performed By: #### L [id number] ####[facility] ([facility])[address] [place] [address] WBC (Bld) [#/Vol] 16.62 10*3/uL High 4.00-10.60 [facility] Comment on above: Performed By: #### L [id number] ####[facility] ([facility])[address] [place] [address] CO-OXIMETRYon 04-24-2023 CARBOXYHEMOGLOBIN/ HEMOGLOBIN TOTAL % IN BLOOD 1.2 % Normal [facility] Comment on above: Performed By: #### L [id number] ####[facility] [id number] [place] [address] [facility] Hemoglobin (Bld) [Mass/Vol] 9.6 g/dL Normal [facility] Comment on above: Performed By: #### L [id number] ####[facility] [id number] [place] [address] [place] METHEMOGLOBIN/100 IN BLOOD 0.4 % Normal 0.0-1.[address] [facility] Comment on above: Performed By: #### L [id number] ####[facility] [id number] [place] [address] [place] Oxygen saturation in Blood 67.5 % Normal [facility] Comment on above: Performed By: #### L [id number] ####[facility] [id number] [place] [address] [place] OXYGENATED HEMOGLOBIN IN BLOOD 66.4 % Normal [facility] Comment on above: Performed By: #### L [id number] ####[facility] [id number] [place] [address] [facility] HEPATIC FUNCTION PANELon Albumin [Mass/Vol] 3.7 g/dL Normal 3.5-5.7 [facility] Comment on above: Performed By: #### L [id number] ####[facility] ([facility])[address] [place] [address] ALP [Catalytic activity/Vol] 39 U/L Normal 34-[address] [facility] Comment on above: Performed By: #### L [id number] ####[facility] ([facility])[address] [place] [address] ALT [Catalytic activity/Vol] 82 U/L High 7-[address] [facility] Comment on above: Performed By: #### L [id number] ####[facility] ([facility])[address] [place] [address] AST [Catalytic activity/Vol] 229 U/L High 13-[address] [facility] Comment on above: Performed By: #### L [id number] ####[facility] ([facility])[address] [place] [address] Bilirubin [Mass/Vol] 0.5 mg/dL Normal 0.3-1.[address] [facility] Comment on above: Performed By: #### L [id number] ####[facility] ([facility])[address] [place] [address] Magnesium [Mass/Vol] 0.2 mg/dL Normal 0-0.[address] [facility] Comment on above: Performed By: #### L [id number] ####[facility] ([facility])[address] [place] [address] Protein [Mass/Vol] 4.9 g/dL Low 6.0-8.3 [facility] Comment on above: Performed By: #### L [id number] ####[facility] ([facility])[address] [place] [address] LACTIC ACID WITH 4 HOUR REFL EXon 04-24-2023 LACTATE (MMOL/L) IN SER/PLAS 1.3 mmol/L Normal 0.5-2.[address] [facility] Comment on above: Performed By: #### L [id number] ####[facility] ([facility])[address] [place] [address] Performed By: #### L [id number] ####[facility] ([facility])[address] [place] [address] LACTATE (MMOL/L) IN SER/PLAS 4.0 mmol/L Critically high 0.5-2.[address] [facility] Comment on above: Result Comment: Prev ious result verified on 04/23/2023 2300 on specimen/case [id number] called with component Lactate blood venous for procedure Lactic acid, venous, whole blood with value 9.1 mmol/L. Performed By: #### L [id number] ####[facility] ([facility])[address] [place] [address] MAGNESIUMon 04-24-2023 Magnesium [Mass/Vol] 1.8 mg/dL Low 1.9-2.[address] [facility] Comment on above: Performed By: #### L [id number] ####[facility] ([facility])[address] [place] [address] POCT GLUCOSE METER UNSOLICIT ED RESULTSon 04-24-2023 Glucose [Mass/Vol] 129 mg/dL High 70-105 [facility] Comment on above: Order Comment: Waive d Testing in the ED is performed under the ED CLIA certificate #[id number]. Result Comment: [email or web address] [email or web address] Performed By: #### L [id number] ####[facility] ([employer])[address] [place] [address] Glucose [Mass/Vol] 116 mg/dL High 70-105 [facility] Comment on above: Order Comment: Waive d Testing in the ED is performed under the ED CLIA certificate #[id number]. Result Comment: [email or web address] [email or web address] Performed By: #### L [id number] ####[facility] ([employer])[address] [place] [address] Glucose [Mass/Vol] 106 mg/dL High 70-105 [facility] Comment on above: Order Comment: Waive d Testing in the ED is performed under the ED CLIA certificate #[id number]. Result Comment: nhay man Performed By: #### L [id number] ####[facility] ([employer])[address] [place] [address] Glucose [Mass/Vol] 113 mg/dL High 70-105 [facility] Comment on above: Order Comment: Waive d Testing in the ED is performed under the ED CLIA certificate #[id number]. Result Comment: nhay man Performed By: #### L [id number] ####[facility] ([employer])[address] [place] [address] Glucose [Mass/Vol] 118 mg/dL High 70-105 [facility] Comment on above: Order Comment: Waive d Testing in the ED is performed under the ED CLIA certificate #[id number]. Result Comment: nhay man Performed By: #### L [id number] ####[facility] ([employer])[address] [place] [address] Glucose [Mass/Vol] 75 mg/dL Normal 70-105 [facility] Comment on above: Order Comment: Waive d Testing in the ED is performed under the ED CLIA certificate #[id number]. Result Comment: nhay man Performed By: #### L [id number] ####[facility] ([facility])[address] [place] [address] Glucose [Mass/Vol] 163 mg/dL High 70-105 [facility] Comment on above: Order Comment: Waive d Testing in the ED is performed under the ED CLIA certificate #[id number]. Result Comment: than sen2 Performed By: #### L [id number] ####[facility] ([facility])[address] [place] [address] Glucose [Mass/Vol] 176 mg/dL High 70-105 [facility] Comment on above: Order Comment: Waive d Testing in the ED is performed under the ED CLIA certificate #[id number]. Result Comment: than sen2 Performed By: #### L [id number] ####[facility] ([facility])[address] [place] [address] Glucose [Mass/Vol] 147 mg/dL High 70-105 [facility] Comment on above: Order Comment: Waive d Testing in the ED is performed under the ED CLIA certificate #[id number]. Result Comment: kste [email or web address] Performed By: #### L [id number] ####[facility] ([facility])[address] [place] [address] Glucose [Mass/Vol] 199 mg/dL High 70-105 [facility] Comment on above: Order Comment: Waive d Testing in the ED is performed under the ED CLIA certificate #[id number]. Result Comment: kste [email or web address] Performed By: #### L [id number] ####[facility] ([employer])[address] [place] [address] Glucose [Mass/Vol] 202 mg/dL High 70-105 [facility] Comment on above: Order Comment: Waive d Testing in the ED is performed under the ED CLIA certificate #[id number]. Result Comment: than sen2 Performed By: #### L [id number] ####[facility] ([facility])[address] [place] [address] Glucose [Mass/Vol] 233 mg/dL High 70-105 [facility] Comment on above: Order Comment: Waive d Testing in the ED is performed under the ED CLIA certificate #[id number]. Result Comment: than sen2 Performed By: #### L [id number] ####[facility] ([facility])[address] [place] [address] Glucose [Mass/Vol] 253 mg/dL High 70-105 [facility] Comment on above: Order Comment: Waive d Testing in the ED is performed under the ED CLIA certificate #[id number]. Result Comment: kste [email or web address] Performed By: #### L [id number] ####[facility] ([facility])[address] [place] [address] Glucose [Mass/Vol] 279 mg/dL High 70-105 [facility] Comment on above: Order Comment: Waive d Testing in the ED is performed under the ED CLIA certificate #[id number]. Result Comment: than sen2 Performed By: #### L [id number] ####[facility] ([facility])[address] [place] [address] TROPONIN Ion 04-24-2023 Troponin I.cardiac [Mass/Vol] 34.92 ng/mL Critically high 0.00-0.[address] [facility] Comment on above: Result Comment: Prev ious result verified on 04/23/2023 2259 on specimen/case [id number] called with component Troponin I for procedure Troponin I with value 22.65 ng/mL. Performed By: #### L [id number] ####[facility] ([facility])[address] [place] [address] 30on 04-23-[address] [facility] [address] [facility] AMYLASEon 04-23-2023 Amylase [Catalytic activity/Vol] 86 U/L Normal 29-[address] [facility] Comment on above: Performed By: #### L [id number] ####[facility] ([facility])[address] [place] [address] APTTon 04-23-2023 ACTIVATED PARTIAL THROMBOPLASTIN TIME IN PPP BY COAGULATION ASSAY 45.1 Seconds High 25.0-35.[address] [facility] Comment on above: Result Comment: Clin ical significance of the APTT is questionable in the presence of heparin. Performed By: #### L [id number] ####[facility] ([facility])[address] [place] [address] ACTIVATED PARTIAL THROMBOPLASTIN TIME IN PPP BY COAGULATION ASSAY 49.0 Seconds High 25.0-35.[address] [facility] Comment on above: Result Comment: Clin ical significance of the APTT is questionable in the presence of heparin. Performed By: #### L [id number] ####[facility] ([facility])[address] [place] [address] ARTERIAL BLOOD GAS WITH IONI ZED CALCIUMon 04-23-2023 Base excess Calc (Bld) [Moles/Vol] -16.41356 mmol/L Low -2.0-3.[address] [facility] Comment on above: Performed By: #### L [id number] ####[facility] [id number] [place] [address] [place] CALCIUM IONIZED (MMOL/L) IN BLOOD 1.15 mmol/L Normal 1.15-1.[address] [facility] Comment on above: Performed By: #### L [id number] ####[facility] [id number] [place] [address] [place] CO2 (Bld) [Partial pressure] 20 mm[Hg] Invalid Interpretation Code 35-[address] [facility] Comment on above: Performed By: #### L [id number] ####[facility] [id number] [place] [address] [place] HCO3 (Bld) [Moles/Vol] 8.8 mmol/L Low 21.0-28.[address] [facility] Comment on above: Performed By: #### L [id number] ####[facility] [id number] [place] [address] [facility] LPM [address] [facility] Comment on above: Performed By: #### L [id number] ####[facility] [id number] [place] [address] [facility] Oxygen (Bld) [Partial pressure] 67 mm[Hg] Low 83-[address] [facility] Comment on above: Performed By: #### L [id number] ####[facility] [id number] [place] [address] [facility] OXYGEN SATURATION (%) IN ARTERIAL BLOOD 93.6 % Low 94.0-98.[address] [facility] Comment on above: Performed By: #### L [id number] ####[facility] [id number] [place] [address] [facility] pH (Bld) 7.25 [pH] Low 7.35-7.[address] [facility] Comment on above: Performed By: #### L [id number] ####[facility] [id number] [place] [address] [facility] SOURCE OF OXYGEN Nasal cannula Normal [facility] Comment on above: Performed By: #### L [id number] ####[facility] [id number] [place] [address] [facility] Base excess Calc (Bld) [Moles/Vol] -15.94153 mmol/L Low -2.0-3.[address] [facility] Comment on above: Order Comment: On ar rival to CVU Performed By: #### L [id number] ####[facility] [id number] [place] [address] [facility] CALCIUM IONIZED (MMOL/L) IN BLOOD 1.16 mmol/L Normal 1.15-1.[address] [facility] Comment on above: Order Comment: On ar rival to CVU Performed By: #### L [id number] ####[facility] [id number] [place] [address] [facility] CO2 (Bld) [Partial pressure] 21 mm[Hg] Invalid Interpretation Code 35-[address] [facility] Comment on above: Order Comment: On ar rival to CVU Performed By: #### L [id number] ####[facility] [id number] [place] [address] [facility] HCO3 (Bld) [Moles/Vol] 9.6 mmol/L Low 21.0-28.[address] [facility] Comment on above: Order Comment: On ar rival to CVU Performed By: #### L [id number] ####[facility] [id number] [place] [address] [facility] Oxygen (Bld) [Partial pressure] 63 mm[Hg] Low 83-[address] [facility] Comment on above: Order Comment: On ar rival to CVU Performed By: #### L [id number] ####[facility] [id number] [place] [address] [facility] OXYGEN SATURATION (%) IN ARTERIAL BLOOD 92.2 % Low 94.0-98.[address] [facility] Comment on above: Order Comment: On ar rival to CVU Performed By: #### L [id number] ####[facility] [id number] [place] [address] [facility] pH (Bld) 7.27 [pH] Low 7.35-7.[address] [facility] Comment on above: Order Comment: On ar rival to CVU Performed By: #### L [id number] ####[facility] [id number] [place] [address] [facility] SOURCE OF OXYGEN Nasal cannula Normal [facility] Comment on above: Order Comment: On ar rival to CVU Performed By: #### L [id number] ####[facility] [id number] [place] [address] [facility] Anesthesiaon 04-23-2023 Anesthesia [id number] Gui Ortiz 1955 M Date Provider Department Center 04/23/2023 KAUSHAL FINLEY [facility] SICU None Family History Family history unknown: Yes Normal [facility] BASIC METABOLIC PANELon 11-0 Anion gap [Moles/Vol] 10 mmol/L Normal -[address] [facility] Comment on above: Performed By: #### L [id number] ####[facility] ([facility])[address] [place] [address] Calcium [Mass/Vol] 8.4 mg/dL Low 8.6-10.3 [facility] Comment on above: Performed By: #### L [id number] ####[facility] ([facility])[address] [place] [address] Chloride [Moles/Vol] 114 mmol/L High 98-[address] [facility] Comment on above: Performed By: #### L [id number] ####[facility] ([facility])[address] [place] [address] CO2 [Moles/Vol] 25 mmol/L Normal 21-31 [facility] Comment on above: Performed By: #### L [id number] ####[facility] ([facility])[address] [place] [address] Creatinine [Mass/Vol] 0.86 mg/dL Normal 0.70-1.[address] [facility] Comment on above: Performed By: #### L [id number] ####[facility] ([facility])[address] [place] [address] GLOMERULAR FILTRATION RATE ML/MIN/1.73 SQ M.PREDICTED 93.7 mL/min/1.73m*2 Normal >60.[address] [facility] Comment on above: Result Comment: The [facility]???s estimated glomerular filtration rate (eGFR) will [...] of individuals. Performed By: #### L [id number] ####[facility] ([facility])[address] [place] [address] Glucose [Mass/Vol] 86 mg/dL Normal 70-100 [facility] Comment on above: Performed By: #### L [id number] ####[facility] ([facility])[address] [place] [address] Potassium [Moles/Vol] 3.9 mmol/L Normal 3.5-5.[address] [facility] Comment on above: Performed By: #### L [id number] ####[facility] ([facility])[address] [place] [address] Sodium [Moles/Vol] 145 mmol/L Normal 136-145 [facility] Comment on above: Performed By: #### L [id number] ####[facility] ([facility])[address] [place] [address] Urea nitrogen [Mass/Vol] 19 mg/dL Normal 7-[address] [facility] Comment on above: Performed By: #### L [id number] ####[facility] ([facility])[address] [place] [address] UREA NITROGEN/CREATININ E (MASS RATIO) IN SER/PLAS 22.[address] [facility] Comment on above: Performed By: #### L [id number] ####[facility] ([facility])[address] [place] [address] CALCIUM, IONIZEDon 3 CALCIUM IONIZED (MMOL/L) IN BLOOD 1.20 mmol/L Normal 1.15-1.[address] [facility] Comment on above: Performed By: #### C ALCIUM, IONIZED ####[facility] [id number] [place] [address] [facility] CALCIUM IONIZED (MMOL/L) IN BLOOD 1.21 mmol/L Normal 1.15-1.[address] [facility] Comment on above: Performed By: #### C ALCIUM, IONIZED ####[facility] [id number] [place] [address] [place] CALCIUM IONIZED (MMOL/L) IN BLOOD 1.19 mmol/L Normal 1.15-1.[address] [facility] Comment on above: Performed By: #### C ALCIUM, IONIZED ####[facility] [id number] [place] [address] [place] CALCIUM IONIZED (MMOL/L) IN BLOOD 1.07 mmol/L Low 1.15-1.[address] [facility] Comment on above: Performed By: #### C ALCIUM, IONIZED ####[facility] [id number] [place] [address] [facility] CBCon 04-23-2023 Erythrocyte distribution width (RBC) [Ratio] 13.3 % Normal 11.5-15.[address] [facility] Comment on above: Performed By: #### L [id number] ####[facility] ([facility])[address] [place] [address] ERYTHROCYTE MEAN CORPUSCULAR HEMOGLOBIN CONCENTRATION (G/DL) BY AUTOMATED 34.2 g/dL Normal 32.0-35.[address] [facility] Comment on above: Performed By: #### L [id number] ####[facility] ([facility])[address] [place] [address] Hematocrit (Bld) [Volume fraction] 22.5 % Low 39.0-55.[address] [facility] Comment on above: Performed By: #### L [id number] ####[facility] ([facility])[address] [place] [address] Hemoglobin (Bld) [Mass/Vol] 7.7 g/dL Low 13.0-17.[address] [facility] Comment on above: Result Comment: Resu lts checked Performed By: #### L [id number] ####[facility] ([facility])[address] [place] [address] IMMATURE PLATELET FRACTION % 2.5 % Normal 0.8-6.[address] [facility] Comment on above: Performed By: #### L [id number] ####[facility] ([facility])[address] [place] [address] MCH (RBC) [Entitic mass] 31.3 pg Normal 27.0-33.[address] [facility] Comment on above: Performed By: #### L [id number] ####[facility] ([facility])[address] [place] [address] MCV (RBC) [Entitic vol] 91.5 fL Normal 82.0-98.[address] [facility] Comment on above: Performed By: #### L [id number] ####[facility] ([facility])[address] [place] [address] PLATELETS (10*3/UL) IN BLOOD AUTOMATED COUNT 80 10*3/uL Low 150-[address] [facility] Comment on above: Result Comment: Plt est 74 ok Performed By: #### L [id number] ####[facility] ([facility])[address] [place] [address] RBC (Bld) [#/Vol] 2.46 10*6/uL Low 4.20-5.70 [facility] Comment on above: Performed By: #### L [id number] ####[facility] ([facility])[address] [place] [address] WBC (Bld) [#/Vol] 7.84 10*3/uL Normal 4.00-10.60 [facility] Comment on above: Performed By: #### L [id number] ####[facility] ([facility])[address] [place] [address] CBC WITH AUTO DIFFERENTIALon 04-23-2023 Erythrocyte distribution width (RBC) [Ratio] 14.0 % Normal 11.5-15.[address] [facility] Comment on above: Performed By: #### L [id number] ####[facility] ([facility])[address] [place] [address] ERYTHROCYTE MEAN CORPUSCULAR HEMOGLOBIN CONCENTRATION (G/DL) BY AUTOMATED 33.9 g/dL Normal 32.0-35.[address] [facility] Comment on above: Performed By: #### L [id number] ####[facility] ([facility])[address] [place] [address] Hematocrit (Bld) [Volume fraction] 18.0 % Low 39.0-55.[address] [facility] Comment on above: Performed By: #### L [id number] ####[facility] ([facility])[address] [place] [address] Hemoglobin (Bld) [Mass/Vol] 6.1 g/dL Low 13.0-17.[address] [facility] Comment on above: Performed By: #### L [id number] ####[facility] ([facility])[address] [place] [address] IMMATURE PLATELET FRACTION % 3.6 % Normal 0.8-6.[address] [facility] Comment on above: Performed By: #### L [id number] ####[facility] (BEAKER)[address] [place] [address] MCH (RBC) [Entitic mass] 31.4 pg Normal 27.0-33.[address] [facility] Comment on above: Performed By: #### L [id number] ####[facility] (BEAKER)[address] [place] [address] MCV (RBC) [Entitic vol] 92.8 fL Normal 82.0-98.[address] [facility] Comment on above: Performed By: #### L [id number] ####[facility] (BEAKER)[address] [place] [address] NRBC (PER 100 WBCS) BY AUTOMATED COUNT 0.0 % Normal [address] [facility] Comment on above: Performed By: #### L [id number] ####[facility] (BEAKER)[address] [place] [address] PLATELETS (10*3/UL) IN BLOOD AUTOMATED COUNT 68 10*3/uL Low 150-[address] [facility] Comment on above: Performed By: #### L [id number] ####[facility] (BEAKER)[address] [place] [address] RBC (Bld) [#/Vol] 1.94 10*6/uL Low 4.20-5.70 [facility] Comment on above: Performed By: #### L [id number] ####[facility] (BEAKER)[address] [place] [address] WBC (Bld) [#/Vol] 12.79 10*3/uL High 4.00-10.60 [facility] Comment on above: Performed By: #### L [id number] ####[facility] ([facility] [place] [address] CK TOTAL AND CKMBon 04-23-20 CREATINE KINASE (U/L) IN SER/PLAS 4110.0 U/L High 30.0-223.[address] [facility] Comment on above: Performed By: #### L [id number] ####[facility] ([facility])[address] [place] [address] CREATINE KINASE MB/CREATINE KINASE TOTAL BY CALCULATION 2.9 High <=1.[address] [facility] Comment on above: Performed By: #### L [id number] ####[facility] ([facility])[address] [address] CREATINE KINASE-MB (NG/ML) IN SER/PLAS 122.5 ng/mL High 0.0-5.[address] [facility] Comment on above: Performed By: #### L [id number] ####[facility] ([facility])[address] [place] [address] CO-OXIMETRYon 04-23-2023 CARBOXYHEMOGLOBIN/ HEMOGLOBIN TOTAL % IN BLOOD 1.3 % Normal [facility] Comment on above: Performed By: #### L [id number] ####[facility] [id number] [place] [address] [place] Hemoglobin (Bld) [Mass/Vol] 7.8 g/dL Normal [facility] Comment on above: Performed By: #### L [id number] ####[facility] [id number] [place] [address] [place] METHEMOGLOBIN/100 IN BLOOD 1.0 % Normal 0.0-1.[address] [facility] Comment on above: Performed By: #### L [id number] ####[facility] [id number] [place] [address] [place] Oxygen saturation in Blood 65.8 % Normal [facility] Comment on above: Performed By: #### L [id number] ####[facility] [id number] [place] [address] [facility] OXYGENATED HEMOGLOBIN IN BLOOD 64.2 % Normal [facility] Comment on above: Performed By: #### L [id number] ####[facility] [id number] [place] [address] [facility] COMPREHENSIVE METABOLIC PANE Roddy 04-23-2023 Albumin [Mass/Vol] 3.6 g/dL Normal 3.5-5.7 [facility] Comment on above: Performed By: #### L [id number] ####[facility] (BEAKER)[address] [place] [address] ALP [Catalytic activity/Vol] 34 U/L Normal 34-[address] [facility] Comment on above: Performed By: #### L [id number] ####[facility] (BEAKER)[address] [place] [address] ALT [Catalytic activity/Vol] 22 U/L Normal 7-[address] [facility] Comment on above: Performed By: #### L [id number] ####[facility] (BEAKER)[address] [place] [address] Anion gap [Moles/Vol] 21 mmol/L High 7-[address] [facility] Comment on above: Performed By: #### L [id number] ####[facility] (BEAKER)[address] [place] [address] AST [Catalytic activity/Vol] 132 U/L High 13-[address] [facility] Comment on above: Performed By: #### L [id number] ####[facility] (BEAKER)[address] [place] [address] Bilirubin [Mass/Vol] 0.5 mg/dL Normal 0.3-1.[address] [facility] Comment on above: Performed By: #### L [id number] ####[facility] (BEAKER)[address] [place] [address] Calcium [Mass/Vol] 8.1 mg/dL Low 8.6-10.3 [facility] Comment on above: Performed By: #### L [id number] ####[facility] ([facility])[address] [place] [address] Chloride [Moles/Vol] 109 mmol/L High 98-[address] [facility] Comment on above: Performed By: #### L [id number] ####[facility] ([facility])[address] [place] [address] CO2 [Moles/Vol] 20 mmol/L Low 21-31 [facility] Comment on above: Performed By: #### L [id number] ####[facility] ([facility])[address] [place] [address] Creatinine [Mass/Vol] 1.16 mg/dL Normal 0.70-1.[address] [facility] Comment on above: Performed By: #### L [id number] ####[facility] ([facility])[address] [place] [address] GLOMERULAR FILTRATION RATE ML/MIN/1.73 SQ M.PREDICTED 68.2 mL/min/1.73m*2 Normal >60.[address] [facility] Comment on above: Result Comment: [facility]???s estimated glomerular filtration rate (eGFR) will [...] of individuals. Performed By: #### L [id number] ####[facility] ([facility] [place] [address] Glucose [Mass/Vol] 255 mg/dL High 70-100 [facility] Comment on above: Performed By: #### L [id number] ####[facility] ([facility])[address] [place] [address] Potassium [Moles/Vol] 4.4 mmol/L Normal 3.5-5.[address] [facility] Comment on above: Performed By: #### L [id number] ####[facility] ([facility])[address] [place] [address] Protein [Mass/Vol] 4.7 g/dL Low 6.0-8.3 [facility] Comment on above: Performed By: #### L [id number] ####[facility] ([facility])[address] [place] [address] Sodium [Moles/Vol] 146 mmol/L High 136-145 [facility] Comment on above: Performed By: #### L [id number] ####[facility] ([facility])[address] [place] [address] Urea nitrogen [Mass/Vol] 21 mg/dL Normal 7-[address] [facility] Comment on above: Performed By: #### L [id number] ####[facility] ([facility])[address] [place] [address] UREA NITROGEN/CREATININ E (MASS RATIO) IN SER/PLAS 18.[address] [facility] Comment on above: Performed By: #### L [id number] ####[facility] ([facility])[address] [place] [address] CONSULTon 04-23-[address] [facility] CONSULT Normal [facility] FIBRINOGENon 04-23-2023 Magnesium [Mass/Vol] 258 mg/dL Normal 150-[address] [facility] Comment on above: Performed By: #### L [id number] ####[facility] ([facility])[address] [place] [address] HEMOGLOBIN AND HEMATOCRIT, B LOODon 04-23-2023 Hematocrit (Bld) [Volume fraction] 28.1 % Low 39.0-55.[address] [facility] Comment on above: Performed By: #### L [id number] ####[facility] ([facility])[address] [place] [address] Hemoglobin (Bld) [Mass/Vol] 9.5 g/dL Low 13.0-17.[address] [facility] Comment on above: Performed By: #### L [id number] ####[facility] ([facility])[address] [place] [address] LACTIC ACID WITH 4 HOUR REFL EXon 04-23-2023 LACTATE (MMOL/L) IN SER/PLAS 9.1 mmol/L Critically high 0.5-2.[address] [facility] Comment on above: Result Comment: Prev ious result verified on 04/23/20232136 on specimen/case [id number] called with component Lactate blood venous for procedure Lactic acid, venous, whole blood with value 12.1 mmol/L. Performed By: #### L [id number] ####[facility] ([facility])[address] [place] [address] LACTATE (MMOL/L) IN SER/PLAS 12.1 mmol/L Critically high 0.5-2.[address] [facility] Comment on above: Result Comment: Prev ious result verified on 04/22/20232145 on specimen/case [id number] called with component Lactate for procedure Lactic acid, plasma with value 2.6 mmol/L. Performed By: #### L [id number] ####[facility] ([facility])[address] [place] [address] LACTIC ACID, PLASMAon 2022 LACTATE (MMOL/L) IN SER/PLAS 2.2 mmol/L Normal 0.5-2.[address] [facility] Comment on above: Performed By: #### L [id number] ####[facility] ([facility])[address] [place] [address] LIPASEon 04-23-2023 LIPASE (U/L) IN SER/PLAS 12 U/L Normal 11-[address] [facility] Comment on above: Performed By: #### L [id number] ####[facility] ([facility])[address] [place] [address] MAGNESIUMon 04-23-2023 Magnesium [Mass/Vol] 1.8 mg/dL Low 1.9-2.[address] [facility] Comment on above: Performed By: #### L [id number] ####[facility] ([facility])[address] [place] [address] MANUAL DIFFERENTIALon 2022 BASOPHILS (10*3/UL) IN BLOOD BY CALCULATION 0.01 10*3/uL Normal 0.00-0.[address] [facility] Comment on above: Performed By: #### L [id number] ####[facility] ([facility])[address] [place] [address] BASOPHILS/100 LEUKOCYTES IN BLOOD BY AUTOMATED COUNT 0.1 % Normal 0.0-1.[address] [facility] Comment on above: Performed By: #### L [id number] ####[facility] ([facility])[address] [place] [address] EOSINOPHILS (10*3/UL) IN BLOOD BY CALCULATION 0.00 10*3/uL Normal 0.00-0.[address] [facility] Comment on above: Performed By: #### L [id number] ####[facility] ([facility])[address] [place] [address] EOSINOPHILS/100 LEUKOCYTES IN BLOOD BY AUTOMATED COUNT 0.0 % Normal 0.0-6.[address] [facility] Comment on above: Performed By: #### L [id number] ####[facility] ([facility])[address] [place] [address] IMMATURE GRANULOCYTES (10*3/UL) IN BLOOD BY CALCULATION 0.09 10*3/uL Normal 0.00-0.[address] [facility] Comment on above: Performed By: #### L [id number] ####[facility] ([facility])[address] [place] [address] IMMATURE GRANULOCYTES/100 LEUKOCYTES IN BLOOD BY AUTOMATED COUNT 0.7 % Normal 0.0-1.[address] [facility] Comment on above: Performed By: #### L [id number] ####[facility] ([facility])[address] [place] [address] LYMPHOCYTES (10*3/UL) IN BLOOD BY CALCULATION 0.72 10*3/uL Low 1.20-4.[address] [facility] Comment on above: Performed By: #### L [id number] ####[facility] ([facility])[address] [place] [address] LYMPHOCYTES/100 LEUKOCYTES IN BLOOD BY AUTOMATED COUNT 5.6 % Low 20.0-45.[address] [facility] Comment on above: Performed By: #### L [id number] ####[facility] ([facility])[address] [place] [address] MONOCYTES (10*3/UL) IN BLOOD BY CALCUATION 0.70 10*3/uL Normal 0.10-1.[address] [facility] Comment on above: Performed By: #### L [id number] ####[facility] ([facility])[address] [place] [address] MONOCYTES/100 LEUKOCYTES IN BLOOD BY AUTOMATED COUNT 5.5 % Normal 5.0-12.[address] [facility] Comment on above: Performed By: #### L [id number] ####[facility] ([facility])[address] [place] [address] NEUTROPHILS (10*3/UL) IN BLOOD BY CALCULATION 11.3 10*3/uL High 1.6-7.[address] [facility] Comment on above: Performed By: #### L [id number] ####[facility] ([facility])[address] [place] [address] NEUTROPHILS/100 LEUKOCYTES IN BLOOD BY AUTOMATED COUNT 88.1 % High 40.0-72.[address] [facility] Comment on above: Performed By: #### L [id number] ####[facility] ([facility])[address] [place] [address] MYOGLOBIN, SERUMon 3 MYOGLOBIN (NG/ML) IN SER/PLAS 1832 ng/mL High 0-[address] [facility] Comment on above: Result Comment: A DO UBLING OF VALUES FROM SERIAL BLOOD COLLECTIONS (1 - 2 HOURS APART) IS MORE INDICATIVE OF A M.I. THAN THE ABSOLUTE VALUE. Performed By: #### L [id number] ####[facility] ([facility])[address] [place] [address] MYOGLOBIN, URINEon 3 MYOGLOBIN URINE 2 mg/L High 0-1 [facility] Comment on above: Result Comment: The pH [...] was developed and its performance characteristicsdetermined by [facility]. It has not been cleared orapproved by the [place] Food and Drug Administration. This test wasperformed in a CLIA certified laboratory and is intended forclinical purposes.Performed By: [email or web address] [place], [place] [address] Director: Wenceslao Healy MD, PhDCLIA Number: [id number] Performed By: #### L [id number] ####[facility] ([facility])[address] [place] [address] PHOSPHORUSon 04-23-2023 Magnesium [Mass/Vol] 3.1 mg/dL Normal 2.5-5.[address] [facility] Comment on above: Performed By: #### L [id number] ####[facility] ([facility])[address] [place] [address] POCT GLUCOSE METER UNSOLICIT ED RESULTSon 04-23-2023 Glucose [Mass/Vol] 270 mg/dL High 70-105 [facility] Comment on above: Order Comment: Waive d Testing in the ED is performed under the ED CLIA certificate #[id number]. Result Comment: than sen2 Performed By: #### L [id number] ####[facility] ([facility])[address] [place] [address] Glucose [Mass/Vol] 267 mg/dL High 70-105 [facility] Comment on above: Order Comment: Waive d Testing in the ED is performed under the ED CLIA certificate #[id number]. Result Comment: [email or web address] Performed By: #### L [id number] ####[facility] (BEAKER)[address] [place] [address] Glucose [Mass/Vol] 267 mg/dL High 70-105 [facility] Comment on above: Order Comment: Waive d Testing in the ED is performed under the ED CLIA certificate #[id number]. Result Comment: than sen2 Performed By: #### L [id number] ####[facility] ([employer])[address] [place] [address] Glucose [Mass/Vol] 138 mg/dL High 70-105 [facility] Comment on above: Order Comment: Waive d Testing in the ED is performed under the ED CLIA certificate #[id number]. Result Comment: nhay man Performed By: #### L [id number] ####[facility] (BEAKER)[address] [place] [address] Glucose [Mass/Vol] 92 mg/dL Normal 70-105 [facility] Comment on above: Order Comment: Waive d Testing in the ED is performed under the ED CLIA certificate #[id number]. Result Comment: nhay man Performed By: #### L [id number] ####[facility] (BEAKER)[address] [place] [address] Glucose [Mass/Vol] 101 mg/dL Normal 70-105 [facility] Comment on above: Order Comment: Waive d Testing in the ED is performed under the ED CLIA certificate #[id number]. Result Comment: vsan [email or web address] Performed By: #### L [id number] ####[facility] (BEAKER)[address] [place] [address] Glucose [Mass/Vol] 91 mg/dL Normal 70-105 [facility] Comment on above: Order Comment: Waive d Testing in the ED is performed under the ED CLIA certificate #[id number]. Result Comment: vsan [email or web address] Performed By: #### L [id number] ####[facility] (BEAKER)[address] [place] [address] Glucose [Mass/Vol] 114 mg/dL High 70-105 [facility] Comment on above: Order Comment: Waive d Testing in the ED is performed under the ED CLIA certificate #[id number]. Result Comment: vsan [email or web address] Performed By: #### L [id number] ####[facility] (AKER)[address] [place] [address] Glucose [Mass/Vol] 123 mg/dL High 70-105 [facility] Comment on above: Order Comment: Waive d Testing in the ED is performed under the ED CLIA certificate #[id number]. Result Comment: vsan [email or web address] Performed By: #### L [id number] ####[facility] (AKER)[address] [place] [address] Glucose [Mass/Vol] 142 mg/dL High 70-105 [facility] Comment on above: Order Comment: Waive d Testing in the ED is performed under the ED CLIA certificate #[id number]. Result Comment: vsan der3 Performed By: #### L [id number] ####[facility] (BEAKER)[address] [place] [address] POTASSIUM, WHOLE BLOODon Potassium [Moles/Vol] 4.4 mmol/L Normal 3.5-5.[address] [facility] Comment on above: Performed By: #### P OTASSIUM, WHOLE BLOOD ####[facility] [id number] [place] [address] [place] Potassium [Moles/Vol] 4.3 mmol/L Normal 3.5-5.[address] [facility] Comment on above: Performed By: #### P OTASSIUM, WHOLE BLOOD ####[facility] [id number] [place] [address] [place] Potassium [Moles/Vol] 4.1 mmol/L Normal 3.5-5.[address] [facility] Comment on above: Performed By: #### P OTASSIUM, WHOLE BLOOD ####[facility] [id number] [place] [address] [facility] Potassium [Moles/Vol] 4.3 mmol/L Normal 3.5-5.[address] [facility] Comment on above: Performed By: #### P OTASSIUM, WHOLE BLOOD ####[facility] [id number] [place] [address] [facility] PROTIME-INRon 04-23-2023 INR IN PPP BY COAGULATION ASSAY 1.98 High 0.90-1.[address] [facility] Comment on above: Result Comment: ACCC [...] CHEST 1995;108:[id number]. Performed By: #### L [id number] ####[facility] (BEAKER)[address] [place] [address] PROTHROMBIN TIME (PT) IN PPP BY COAGULATION ASSAY 22.6 Seconds High 12.3-14.[address] [facility] Comment on above: Performed By: #### L [id number] ####[facility] (BEAKER)[address] [place] [address] INR IN PPP BY COAGULATION ASSAY 1.47 High 0.90-1.[address] [facility] Comment on above: Result Comment: ACCC [...] CHEST 1995;108:[id number]. Performed By: #### L [id number] ####[facility] (BEAKER)[address] [place] [address] PROTHROMBIN TIME (PT) IN PPP BY COAGULATION ASSAY 17.9 Seconds High 12.3-14.[address] [facility] Comment on above: Performed By: #### L [id number] ####[facility] (BEAKER)[address] [place] [address] SODIUM, WHOLE BLOODon 2022 SODIUM, WHOLE BLOOD 141 Normal 136-[address] [facility] Comment on above: Performed By: #### S ODIUM, WHOLE BLOOD ####[facility]PIR[facility] [id number] [place] [address] [place] SODIUM, WHOLE BLOOD 141 Normal 136-[address] [facility] Comment on above: Performed By: #### S ODIUM, WHOLE BLOOD ####[facility] [id number] [facility] [place] [address] [place] SODIUM, WHOLE BLOOD 143 Normal 136-[address] [facility] Comment on above: Performed By: #### S ODIUM, WHOLE BLOOD ####[facility] [id number] [place] [address] [place] SODIUM, WHOLE BLOOD 144 Normal 136-[address] [facility] Comment on above: Performed By: #### S ODIUM, WHOLE BLOOD ####[facility]IR[facility] [id number] [place] [address] [place] TROPONIN Ion 04-23-2023 Troponin I.cardiac [Mass/Vol] 22.65 ng/mL Critically high 0.00-0.[address] [facility] Comment on above: Result Comment: M-TR OPONIN INITIAL CRITICAL HIGH; RESPUN AND RETESTED Performed By: #### L [id number] ####[facility] ([facility])[address] [place] [address] ANESon 04-22-[address] [facility] APTTon 04-22-2023 ACTIVATED PARTIAL THROMBOPLASTIN TIME IN PPP BY COAGULATION ASSAY 43.4 Seconds High 25.0-35.[address] [facility] Comment on above: Result Comment: Clin ical significance of the APTT is questionable in the presence of heparin. Performed By: #### L [id number] ####[facility] ([facility])[address] [place] [address] ACTIVATED PARTIAL THROMBOPLASTIN TIME IN PPP BY COAGULATION ASSAY 36.9 Seconds High 25.0-35.[address] [facility] Comment on above: Result Comment: Clin ical significance of the APTT is questionable in the presence of heparin. Performed By: #### L [id number] ####[facility] ([facility])[address] [place] [address] ACTIVATED PARTIAL THROMBOPLASTIN TIME IN PPP BY COAGULATION ASSAY 40.3 Seconds High 25.0-35.[address] [facility] Comment on above: Order Comment: Pre-o p diagnosis:NSTEMI (non-ST elevated myocardial infarction) (CMS/HCC) [I21.4]Acute non-ST segment elevation myocardial infarction (CMS/HCC) [I21.4]Coronary artery disease, unspecified vessel or lesion type, unspecified whether angina present, unspecified whether [place] or transplanted heart [I25.10] Result Comment: Clin ical significance of the APTT is questionable in the presence of heparin. Performed By: #### L [id number] ####[facility] ([facility])[address] [place] [address] BASIC METABOLIC PANELon 11-0 Anion gap [Moles/Vol] 9 mmol/L Normal 7-[address] [facility] Comment on above: Performed By: #### L [id number] ####[facility] ([facility])[address] [place] [address] Calcium [Mass/Vol] 7.9 mg/dL Low 8.6-10.3 [facility] Comment on above: Performed By: #### L [id number] ####[facility] ([facility])[address] [place] [address] Chloride [Moles/Vol] 114 mmol/L High 98-[address] [facility] Comment on above: Performed By: #### L [id number] ####[facility] ([facility])[address] [place] [address] CO2 [Moles/Vol] 25 mmol/L Normal 21-31 [facility] Comment on above: Performed By: #### L [id number] ####[facility] ([facility])[address] [place] [address] Creatinine [Mass/Vol] 0.86 mg/dL Normal 0.70-1.[address] [facility] Comment on above: Performed By: #### L [id number] ####[facility] ([facility])[address] [place] [address] GLOMERULAR FILTRATION RATE ML/MIN/1.73 SQ M.PREDICTED 93.7 mL/min/1.73m*2 Normal >60.[address] [facility] Comment on above: Result Comment: [facility]???s estimated glomerular filtration rate (eGFR) will [...] of individuals. Performed By: #### L [id number] ####[facility] ([facility])[address] [place] [address] Glucose [Mass/Vol] 162 mg/dL High 70-100 [facility] Comment on above: Performed By: #### L [id number] ####[facility] ([facility])[address] [place] [address] Potassium [Moles/Vol] 4.2 mmol/L Normal 3.5-5.[address] [facility] Comment on above: Performed By: #### L [id number] ####[facility] ([facility])[address] [place] [address] Sodium [Moles/Vol] 144 mmol/L Normal 136-145 [facility] Comment on above: Performed By: #### L [id number] ####[facility] ([facility])[address] [place] [address] Urea nitrogen [Mass/Vol] 19 mg/dL Normal 7-[address] [facility] Comment on above: Performed By: #### L [id number] ####[facility] ([facility])[address] [place] [address] UREA NITROGEN/CREATININ E (MASS RATIO) IN SER/PLAS 22.[address] [facility] Comment on above: Performed By: #### L [id number] ####[facility] ([facility])[address] [place] [address] Anion gap [Moles/Vol] 7 mmol/L Normal 7-[address] [facility] Comment on above: Performed By: #### L [id number] ####[facility] ([facility])[address] [place] [address] Calcium [Mass/Vol] 8.2 mg/dL Low 8.6-10.3 [facility] Comment on above: Performed By: #### L [id number] ####[facility] ([facility])[address] [place] [address] Chloride [Moles/Vol] 114 mmol/L High 98-[address] [facility] Comment on above: Performed By: #### L [id number] ####[facility] ([facility])[address] [place] [address] CO2 [Moles/Vol] 29 mmol/L Normal 21-31 [facility] Comment on above: Performed By: #### L [id number] ####[facility] ([facility] [place] [address] Creatinine [Mass/Vol] 0.77 mg/dL Normal 0.70-1.[address] [facility] Comment on above: Performed By: #### L [id number] ####[facility] ([facility] [place] [address] GLOMERULAR FILTRATION RATE ML/MIN/1.73 SQ M.PREDICTED 96.9 mL/min/1.73m*2 Normal >60.[address] [facility] Comment on above: Result Comment: [facility]???s estimated glomerular filtration rate (eGFR) will [...] of individuals. Performed By: #### L [id number] ####[facility] ([facility])[address] [place] [address] Glucose [Mass/Vol] 142 mg/dL High 70-100 [facility] Comment on above: Performed By: #### L [id number] ####[facility] ([facility])[address] [place] [address] Potassium [Moles/Vol] 3.7 mmol/L Normal 3.5-5.[address] [facility] Comment on above: Performed By: #### L [id number] ####[facility] ([facility])[address] [place] [address] Sodium [Moles/Vol] 146 mmol/L High 136-145 [facility] Comment on above: Performed By: #### L [id number] ####[facility] ([facility])[address] [place] [address] Urea nitrogen [Mass/Vol] 18 mg/dL Normal 7-[address] [facility] Comment on above: Performed By: #### L [id number] ####[facility] ([facility])[address] [place] [address] UREA NITROGEN/CREATININ E (MASS RATIO) IN SER/PLAS 23.[address] [facility] Comment on above: Performed By: #### L [id number] ####[facility] ([facility])[address] [place] [address] Anion gap [Moles/Vol] 7 mmol/L Normal 7-[address] [facility] Comment on above: Order Comment: Pre-o p diagnosis:NSTEMI (non-ST elevated myocardial infarction) (CMS/HCC) [I21.4]Acute non-ST segment elevation myocardial infarction (CMS/HCC) [I21.4]Coronary artery disease, unspecified vessel or lesion type, unspecified whether angina present, unspecified whether [place] or transplanted heart [I25.10] Performed By: #### L [id number] ####[facility] ([facility])[address] [place] [address] Calcium [Mass/Vol] 8.5 mg/dL Low 8.6-10.3 [facility] Comment on above: Order Comment: Pre-o p diagnosis:NSTEMI (non-ST elevated myocardial infarction) (CMS/HCC) [I21.4]Acute non-ST segment elevation myocardial infarction (CMS/HCC) [I21.4]Coronary artery disease, unspecified vessel or lesion type, unspecified whether angina present, unspecified whether [place] or transplanted heart [I25.10] Performed By: #### L [id number] ####[facility] ([facility])[address] [place] [address] Chloride [Moles/Vol] 116 mmol/L High 98-[address] [facility] Comment on above: Order Comment: Pre-o p diagnosis:NSTEMI (non-ST elevated myocardial infarction) (CMS/HCC) [I21.4]Acute non-ST segment elevation myocardial infarction (CMS/HCC) [I21.4]Coronary artery disease, unspecified vessel or lesion type, unspecified whether angina present, unspecified whether [place] or transplanted heart [I25.10] Performed By: #### L [id number] ####[facility] ([facility])[address] [place] [address] CO2 [Moles/Vol] 25 mmol/L Normal 21-31 [facility] Comment on above: Order Comment: Pre-o p diagnosis:NSTEMI (non-ST elevated myocardial infarction) (CMS/HCC) [I21.4]Acute non-ST segment elevation myocardial infarction (CMS/HCC) [I21.4]Coronary artery disease, unspecified vessel or lesion type, unspecified whether angina present, unspecified whether [place] or transplanted heart [I25.10] Performed By: #### L [id number] ####[facility] ([facility])[address] [place] [address] Creatinine [Mass/Vol] 0.82 mg/dL Normal 0.70-1.[address] [facility] Comment on above: Order Comment: Pre-o p diagnosis:NSTEMI (non-ST elevated myocardial infarction) (CMS/HCC) [I21.4]Acute non-ST segment elevation myocardial infarction (CMS/HCC) [I21.4]Coronary artery disease, unspecified vessel or lesion type, unspecified whether angina present, unspecified whether [place] or transplanted heart [I25.10] Performed By: #### L [id number] ####[facility] ([employer])[address] [place] [address] GLOMERULAR FILTRATION RATE ML/MIN/1.73 SQ M.PREDICTED 95.1 mL/min/1.73m*2 Normal >60.[address] [facility] Comment on above: Order Comment: Pre-o p diagnosis:NSTEMI (non-ST elevated myocardial infarction) (CMS/HCC) [I21.4]Acute non-ST segment elevation myocardial infarction (CMS/HCC) [I21.4]Coronary artery disease, unspecified vessel or lesion type, unspecified whether angina present, unspecified whether [place] or transplanted heart [I25.10] Result Comment: [facility]???s estimated glomerular filtration rate (eGFR) will [...] of individuals. Performed By: #### L [id number] ####[facility] ([facility] [employer])[address] [place] [address] [facility] [place] [address] Glucose [Mass/Vol] 198 mg/dL High 70-100 [facility] Comment on above: Order Comment: Pre-o p diagnosis:NSTEMI (non-ST elevated myocardial infarction) (CMS/HCC) [I21.4]Acute non-ST segment elevation myocardial infarction (CMS/HCC) [I21.4]Coronary artery disease, unspecified vessel or lesion type, unspecified whether angina present, unspecified whether [place] or transplanted heart [I25.10] Performed By: #### L [id number] ####[facility] ([facility])[address] [place] [address] [facility] [place] [address] Potassium [Moles/Vol] 3.1 mmol/L Low 3.5-5.[address] [facility] Comment on above: Order Comment: Pre-o p diagnosis:NSTEMI (non-ST elevated myocardial infarction) (CMS/HCC) [I21.4]Acute non-ST segment elevation myocardial infarction (CMS/HCC) [I21.4]Coronary artery disease, unspecified vessel or lesion type, unspecified whether angina present, unspecified whether [place] or transplanted heart [I25.10] Performed By: #### L [id number] ####[facility] ([facility]ER)[address] [place] [address] Sodium [Moles/Vol] 145 mmol/L Normal 136-145 [facility] Comment on above: Order Comment: Pre-o p diagnosis:NSTEMI (non-ST elevated myocardial infarction) (CMS/HCC) [I21.4]Acute non-ST segment elevation myocardial infarction (CMS/HCC) [I21.4]Coronary artery disease, unspecified vessel or lesion type, unspecified whether angina present, unspecified whether [place] or transplanted heart [I25.10] Performed By: #### L [id number] ####[facility] ([facility])[address] [place] [address] Urea nitrogen [Mass/Vol] 18 mg/dL Normal 7-[address] [facility] Comment on above: Order Comment: Pre-o p diagnosis:NSTEMI (non-ST elevated myocardial infarction) (CMS/HCC) [I21.4]Acute non-ST segment elevation myocardial infarction (CMS/HCC) [I21.4]Coronary artery disease, unspecified vessel or lesion type, unspecified whether angina present, unspecified whether [place] or transplanted heart [I25.10] Performed By: #### L [id number] ####[facility] ([facility])[address] [place] [address] UREA NITROGEN/CREATININ E (MASS RATIO) IN SER/PLAS 22.[address] [facility] Comment on above: Order Comment: Pre-o p diagnosis:NSTEMI (non-ST elevated myocardial infarction) (CMS/HCC) [I21.4]Acute non-ST segment elevation myocardial infarction (CMS/HCC) [I21.4]Coronary artery disease, unspecified vessel or lesion type, unspecified whether angina present, unspecified whether [place] or transplanted heart [I25.10] Performed By: #### L [id number] ####[facility] ([facility])[address] [place] [address] CBCon 04-22-2023 Erythrocyte distribution width (RBC) [Ratio] 13.1 % Normal 11.5-15.[address] [facility] Comment on above: Performed By: #### L [id number] ####[facility] ([facility])[address] [place] [address] ERYTHROCYTE MEAN CORPUSCULAR HEMOGLOBIN CONCENTRATION (G/DL) BY AUTOMATED 34.7 g/dL Normal 32.0-35.[address] [facility] Comment on above: Performed By: #### L [id number] ####[facility] ([facility])[address] [place] [address] Hematocrit (Bld) [Volume fraction] 32.6 % Low 39.0-55.[address] [facility] Comment on above: Performed By: #### L [id number] ####[facility] ([facility])[address], [place] [address] Hemoglobin (Bld) [Mass/Vol] 11.3 g/dL Low 13.0-17.[address] [facility] Comment on above: Performed By: #### L [id number] ####[facility] ([facility])[address] [place] [address] MCH (RBC) [Entitic mass] 31.1 pg Normal 27.0-33.[address] [facility] Comment on above: Performed By: #### L [id number] ####[facility] ([facility])[address], [place] [address] MCV (RBC) [Entitic vol] 89.8 fL Normal 82.0-98.[address] [facility] Comment on above: Performed By: #### L [id number] ####[facility] ([facility])[address] [place] [address] PLATELETS (10*3/UL) IN BLOOD AUTOMATED COUNT 107 10*3/uL Low 150-[address] [facility] Comment on above: Performed By: #### L [id number] ####[facility] ([facility])[address], [place] [address] RBC (Bld) [#/Vol] 3.63 10*6/uL Low 4.20-5.70 [facility] Comment on above: Performed By: #### L [id number] ####[facility] ([facility])[address] [place] [address] WBC (Bld) [#/Vol] 18.54 10*3/uL High 4.00-10.60 [facility] Comment on above: Performed By: #### L [id number] ####[facility] ([place])[address] [place] [address] Erythrocyte distribution width (RBC) [Ratio] 13.0 % Normal 11.5-15.[address] [facility] Comment on above: Order Comment: Pre-o p diagnosis:NSTEMI (non-ST elevated myocardial infarction) (CMS/HCC) [I21.4]Acute non-ST segment elevation myocardial infarction (CMS/HCC) [I21.4]Coronary artery disease, unspecified vessel or lesion type, unspecified whether angina present, unspecified whether [place] or transplanted heart [I25.10] Performed By: #### L [id number] ####[facility] ([place])[address] [place] [address] ERYTHROCYTE MEAN CORPUSCULAR HEMOGLOBIN CONCENTRATION (G/DL) BY AUTOMATED 34.5 g/dL Normal 32.0-35.[address] [facility] Comment on above: Order Comment: Pre-o p diagnosis:NSTEMI (non-ST elevated myocardial infarction) (CMS/HCC) [I21.4]Acute non-ST segment elevation myocardial infarction (CMS/HCC) [I21.4]Coronary artery disease, unspecified vessel or lesion type, unspecified whether angina present, unspecified whether [place] or transplanted heart [I25.10] Performed By: #### L [id number] ####[facility] ([place])[address] [place] [address] Hematocrit (Bld) [Volume fraction] 26.7 % Low 39.0-55.[address] [facility] Comment on above: Order Comment: Pre-o p diagnosis:NSTEMI (non-ST elevated myocardial infarction) (CMS/HCC) [I21.4]Acute non-ST segment elevation myocardial infarction (CMS/HCC) [I21.4]Coronary artery disease, unspecified vessel or lesion type, unspecified whether angina present, unspecified whether [place] or transplanted heart [I25.10] Performed By: #### L [id number] ####[facility] ([employer])[address] [place] [address] Hemoglobin (Bld) [Mass/Vol] 9.2 g/dL Low 13.0-17.[address] [facility] Comment on above: Order Comment: Pre-o p diagnosis:NSTEMI (non-ST elevated myocardial infarction) (CMS/HCC) [I21.4]Acute non-ST segment elevation myocardial infarction (CMS/HCC) [I21.4]Coronary artery disease, unspecified vessel or lesion type, unspecified whether angina present, unspecified whether [place] or transplanted heart [I25.10] Performed By: #### L [id number] ####[facility] ([employer])[address] [place] [address] MCH (RBC) [Entitic mass] 31.4 pg Normal 27.0-33.[address] [facility] Comment on above: Order Comment: Pre-o p diagnosis:NSTEMI (non-ST elevated myocardial infarction) (CMS/HCC) [I21.4]Acute non-ST segment elevation myocardial infarction (CMS/HCC) [I21.4]Coronary artery disease, unspecified vessel or lesion type, unspecified whether angina present, unspecified whether [place] or transplanted heart [I25.10] Performed By: #### L [id number] ####[facility] ([employer])[address] [place] [address] MCV (RBC) [Entitic vol] 91.1 fL Normal 82.0-98.[address] [facility] Comment on above: Order Comment: Pre-o p diagnosis:NSTEMI (non-ST elevated myocardial infarction) (CMS/HCC) [I21.4]Acute non-ST segment elevation myocardial infarction (CMS/HCC) [I21.4]Coronary artery disease, unspecified vessel or lesion type, unspecified whether angina present, unspecified whether [place] or transplanted heart [I25.10] Performed By: #### L [id number] ####[facility] ([employer])[address] [place] [address] PLATELETS (10*3/UL) IN BLOOD AUTOMATED COUNT 134 10*3/uL Low 150-[address] [facility] Comment on above: Order Comment: Pre-o p diagnosis:NSTEMI (non-ST elevated myocardial infarction) (CMS/HCC) [I21.4]Acute non-ST segment elevation myocardial infarction (CMS/HCC) [I21.4]Coronary artery disease, unspecified vessel or lesion type, unspecified whether angina present, unspecified whether [place] or transplanted heart [I25.10] Performed By: #### L [id number] ####[facility] ([place])[address] [place] [address] RBC (Bld) [#/Vol] 2.93 10*6/uL Low 4.20-5.70 [facility] Comment on above: Order Comment: Pre-o p diagnosis:NSTEMI (non-ST elevated myocardial infarction) (CMS/HCC) [I21.4]Acute non-ST segment elevation myocardial infarction (CMS/HCC) [I21.4]Coronary artery disease, unspecified vessel or lesion type, unspecified whether angina present, unspecified whether [place] or transplanted heart [I25.10] Performed By: #### L [id number] ####[facility] ([place])[address] [facility] [place] [address] WBC (Bld) [#/Vol] 21.16 10*3/uL High 4.00-10.60 [facility] Comment on above: Order Comment: Pre-o p diagnosis:NSTEMI (non-ST elevated myocardial infarction) (CMS/HCC) [I21.4]Acute non-ST segment elevation myocardial infarction (CMS/HCC) [I21.4]Coronary artery disease, unspecified vessel or lesion type, unspecified whether angina present, unspecified whether [place] or transplanted heart [I25.10] Performed By: #### L [id number] ####[facility] ([place])[address] [place] [address] CBC WITH AUTO DIFFERENTIALon 04-22-2023 Basophils (Bld) [#/Vol] 0.01 10*3/uL Normal 0.00-0.[address] [facility] Comment on above: Performed By: #### L [id number] ####[facility] ([place])[address] [place] [address] Basophils/100 WBC (Bld) 0.1 % Normal 0.0-1.[address] [facility] Comment on above: Performed By: #### L [id number] ####[facility] ([facility])[address] [place] [address] Eosinophils (Bld) [#/Vol] 0.00 10*3/uL Normal 0.00-0.[address] [facility] Comment on above: Performed By: #### L [id number] ####[facility] ([facility])[address] [place] [address] Eosinophils/100 WBC (Bld) 0.0 % Normal 0.0-6.[address] [facility] Comment on above: Performed By: #### L [id number] ####[facility] ([facility])[address] [place] [address] Erythrocyte distribution width (RBC) [Ratio] 13.2 % Normal 11.5-15.[address] [facility] Comment on above: Performed By: #### L [id number] ####[facility] ([facility])[address] [place] [address] ERYTHROCYTE MEAN CORPUSCULAR HEMOGLOBIN CONCENTRATION (G/DL) BY AUTOMATED 35.6 g/dL High 32.0-35.[address] [facility] Comment on above: Performed By: #### L [id number] ####[facility] ([facility])[address] [place] [address] Hematocrit (Bld) [Volume fraction] 28.4 % Low 39.0-55.[address] [facility] Comment on above: Performed By: #### L [id number] ####[facility] ([facility]ER)[address] [place] [address] Hemoglobin (Bld) [Mass/Vol] 10.1 g/dL Low 13.0-17.[address] [facility] Comment on above: Performed By: #### L [id number] ####[facility] ([facility]ER)[address] [place] [address] Immature granulocytes (Bld) [#/Vol] 0.10 10*3/uL Normal 0.00-0.[address] [facility] Comment on above: Performed By: #### L [id number] ####[facility] ([facility])[address] [place] [address] Immature granulocytes/100 WBC (Bld) 0.7 % Normal 0.0-1.[address] [facility] Comment on above: Performed By: #### L [id number] ####[facility] ([facility])[address] [place] [address] IMMATURE PLATELET FRACTION % 2.3 % Normal 0.8-6.[address] [facility] Comment on above: Performed By: #### L [id number] ####[facility] ([facility])[address] [place] [address] Lymphocytes (Bld) [#/Vol] 0.95 10*3/uL Low 1.20-4.[address] [facility] Comment on above: Performed By: #### L [id number] ####[facility] ([facility])[address] [place] [address] Lymphocytes/100 WBC (Bld) 6.4 % Low 20.0-45.[address] [facility] Comment on above: Performed By: #### L [id number] ####[facility] ([facility])[address] [place] [address] MCH (RBC) [Entitic mass] 31.7 pg Normal 27.0-33.[address] [facility] Comment on above: Performed By: #### L [id number] ####[facility] ([facility] [place] [address] MCV (RBC) [Entitic vol] 89.0 fL Normal 82.0-98.[address] [facility] Comment on above: Performed By: #### L [id number] ####[facility] ([facility] [place] [address] Monocytes (Bld) [#/Vol] 1.37 10*3/uL High 0.10-1.[address] [facility] Comment on above: Performed By: #### L [id number] ####[facility] ([facility]ER)[address] [place] [address] Monocytes/100 WBC (Bld) 9.3 % Normal 5.0-12.[address] [facility] Comment on above: Performed By: #### L [id number] ####[facility] ([facility]ER)[address] [place] [address] Neutrophils (Bld) [#/Vol] 12.36 10*3/uL High 1.60-7.[address] [facility] Comment on above: Performed By: #### L [id number] ####[facility] ([facility]ER)[address] [address] Neutrophils/100 WBC (Bld) 83.5 % High 40.0-72.[address] [facility] Comment on above: Performed By: #### L [id number] ####[facility] (BE[facility]ER)[address] [address] NRBC (PER 100 WBCS) BY AUTOMATED COUNT 0.0 % Normal [address] [facility] Comment on above: Performed By: #### L [id number] ####[facility] ([facility]ER)[address] [place] [address] PLATELETS (10*3/UL) IN BLOOD AUTOMATED COUNT 108 10*3/uL Low 150-[address] [facility] Comment on above: Performed By: #### L [id number] ####[facility] (BE[facility]ER)[address], [place] [address] RBC (Bld) [#/Vol] 3.19 10*6/uL Low 4.20-5.70 [facility] Comment on above: Performed By: #### L [id number] ####[facility] (BE[facility]ER)[address], [place] [address] WBC (Bld) [#/Vol] 14.79 10*3/uL High 4.00-10.60 [facility] Comment on above: Performed By: #### L [id number] ####[facility] (BEAKER)[address] [place] [address] CO-OXIMETRYon 04-22-2023 CARBOXYHEMOGLOBIN/ HEMOGLOBIN TOTAL % IN BLOOD 1.5 % Normal [facility] Comment on above: Performed By: #### L [id number] ####[facility]PIR[facility] [id number] [place] [address] [place] Hemoglobin (Bld) [Mass/Vol] 12.7 g/dL Normal [facility] Comment on above: Performed By: #### L [id number] ####[facility]IR[facility] [id number] [place] [address] [place] METHEMOGLOBIN/100 IN BLOOD 0.1 % Normal 0.0-1.[address] [facility] Comment on above: Performed By: #### L [id number] ####[facility] RESPIRATORY [id number] [facility] [place] [address] [place] Oxygen saturation in Blood 71.7 % Normal [facility] Comment on above: Performed By: #### L [id number] ####[facility] RESPIR[facility] [id number] [place] [address] [place] OXYGENATED HEMOGLOBIN IN BLOOD 70.6 % Normal [facility] Comment on above: Performed By: #### L [id number] ####[facility] RESPIRATORY [id number] [place] [address] [place] CONSULTon 04-22-[address] [facility] FIBRINOGENon 04-22-2023 Magnesium [Mass/Vol] 162 mg/dL Normal 150-[address] [facility] Comment on above: Order Comment: Pre-o p diagnosis:NSTEMI (non-ST elevated myocardial infarction) (CMS/HCC) [I21.4]Acute non-ST segment elevation myocardial infarction (CMS/HCC) [I21.4]Coronary artery disease, unspecified vessel or lesion type, unspecified whether angina present, unspecified whether [place] or transplanted heart [I25.10] Performed By: #### L [id number] ####[facility] (BEAKER)[address] [place] [address] HEPATIC FUNCTION PANELon Albumin [Mass/Vol] 2.5 g/dL Low 3.5-5.7 [facility] Comment on above: Performed By: #### L [id number] ####[facility] ([facility])[address] [place] [address] ALP [Catalytic activity/Vol] 54 U/L Normal 34-[address] [facility] Comment on above: Performed By: #### L [id number] ####[facility] ([facility])[address] [place] [address] ALT [Catalytic activity/Vol] 10 U/L Normal 7-[address] [facility] Comment on above: Performed By: #### L [id number] ####[facility] ([facility])[address] [place] [address] AST [Catalytic activity/Vol] 34 U/L Normal 13-[address] [facility] Comment on above: Performed By: #### L [id number] ####[facility] ([facility])[address] [place] [address] Bilirubin [Mass/Vol] 0.6 mg/dL Normal 0.3-1.[address] [facility] Comment on above: Performed By: #### L [id number] ####[facility] ([facility])[address] [place] [address] Magnesium [Mass/Vol] 0.2 mg/dL Normal 0-0.[address] [facility] Comment on above: Performed By: #### L [id number] ####[facility] ([facility])[address] [place] [address] Protein [Mass/Vol] 3.7 g/dL Low 6.0-8.3 [facility] Comment on above: Performed By: #### L [id number] ####[facility] ([facility])[address] [place] [address] HISTOLOGY - TISSUE EXAMon LAB AP CASE REPORT Normal [facility] Comment on above: Order Comment: Pre-o p diagnosis:NSTEMI (non-ST elevated myocardial infarction) (CMS/HCC) [I21.4]Acute non-ST segment elevation myocardial infarction (CMS/HCC) [I21.4]Coronary artery disease, unspecified vessel or lesion type, unspecified whether angina present, unspecified whether [place] or transplanted heart [I25.10] Result Comment: Surg ical Pathology Case: [id number] Provider: Chaitanya Ames MD Collected: 04/22/2023 0928Ordering Location: [facility] Main Operating Room Received: 04/22/2023 1923Pathologist: RAHEEM Wilsonpecimens: A) - Lymph Node, ANTERIOR MEDIASTINAL LYMPH NODE B) - Lymph Node, RIGHT INTERNAL MAMMARY LYMPH NODE FOR HISTOLOGY Performed By: #### L [id number] ####[facility] ([facility])[address] [place] [address] LAB AP CLINICAL INFORMATION Normal [facility] Comment on above: Order Comment: Pre-o p diagnosis:NSTEMI (non-ST elevated myocardial infarction) (CMS/HCC) [I21.4]Acute non-ST segment elevation myocardial infarction (CMS/HCC) [I21.4]Coronary artery disease, unspecified vessel or lesion type, unspecified whether angina present, unspecified whether [place] or transplanted heart [I25.10] Result Comment: Post -Op [id number] - NSTEMI (non-ST elevated myocardial infarction) (CMS/HCC) [ICD-10-CM]I21.4 - Acute non-ST segment elevation myocardial infarction (CMS/HCC) [ICD-10-CM]I25.10 - Coronary artery disease, unspecified vessel or lesion type, unspecified whether angina present, unspecified whether [place] or transplanted heart [ICD-10-CM] Performed By: #### L [id number] ####[facility] ([facility])[address] [place] [facility] [place] [address] LAB AP GROSS DESCRIPTION A. Lymph Node. Normal [facility] Comment on above: Order Comment: Pre-o [...] submitted in a single cassette.Jenny Guajardo, Pathologists' Stem Roller Operator Performed By: #### L [id number] ####[facility] ([facility])[address] [place] [address] LAB AP MICROSCOPIC DESCRIPTION Microscopic examination performed. Normal [facility] Comment on above: Order Comment: Pre-o p diagnosis:NSTEMI (non-ST elevated myocardial infarction) (CMS/HCC) [I21.4]Acute non-ST segment elevation myocardial infarction (CMS/HCC) [I21.4]Coronary artery disease, unspecified vessel or lesion type, unspecified whether angina present, unspecified whether [place] or transplanted heart [I25.10] Performed By: #### L [id number] ####[facility] ([facility])[address] [place] [address] LAB AP REPORT FINAL DIAGNOSIS NARRATIVE Normal [facility] Comment on above: Order Comment: Pre-o [...] focal chronic inflammation. Performed By: #### L [id number] ####[facility] ([facility])[address] [place] [address] HPon 04-22-2023 HP H&P reviewed. The pa indy was examined and there are no changes to the H&P. Normal [facility] LACTIC ACID WITH 4 HOUR REFL EXon 04-22-2023 LACTATE (MMOL/L) IN SER/PLAS 2.3 mmol/L High 0.5-2.[address] [facility] Comment on above: Order Comment: Pre-o p diagnosis:NSTEMI (non-ST elevated myocardial infarction) (CMS/HCC) [I21.4]Acute non-ST segment elevation myocardial infarction (CMS/HCC) [I21.4]Coronary artery disease, unspecified vessel or lesion type, unspecified whether angina present, unspecified whether [place] or transplanted heart [I25.10] Performed By: #### L [id number] ####[facility] ([facility])[address] [place] [address] LACTIC ACID, PLASMAon 2022 LACTATE (MMOL/L) IN SER/PLAS 2.6 mmol/L Critically high 0.5-2.[address] [facility] Comment on above: Result Comment: Prev ious result verified on 04/22/2023 1906 on specimen/case [id number] called with component Lactate for procedure Lactic acid, plasma with value 2.7 mmol/L. Performed By: #### L [id number] ####[facility] ([facility])[address] [place] [address] LACTATE (MMOL/L) IN SER/PLAS 2.7 mmol/L Critically high 0.5-2.[address] [facility] Comment on above: Performed By: #### L [id number] ####[facility] ([facility])[address] [place] [address] MAGNESIUMon 04-22-2023 Magnesium [Mass/Vol] 2.1 mg/dL Normal 1.9-2.[address] [facility] Comment on above: Performed By: #### L [id number] ####[facility] ([facility])[address] [place] [address] Magnesium [Mass/Vol] 2.4 mg/dL Normal 1.9-2.[address] [facility] Comment on above: Order Comment: Pre-o p diagnosis:NSTEMI (non-ST elevated myocardial infarction) (CMS/HCC) [I21.4]Acute non-ST segment elevation myocardial infarction (CMS/HCC) [I21.4]Coronary artery disease, unspecified vessel or lesion type, unspecified whether angina present, unspecified whether [place] or transplanted heart [I25.10] Performed By: #### L [id number] ####[facility] ([facility])[address] [place] [address] OPNOTEon 04-22-[address] [facility] PHOSPHORUSon 04-22-2023 Magnesium [Mass/Vol] 3.6 mg/dL Normal 2.5-5.[address] [facility] Comment on above: Performed By: #### L [id number] ####[facility] ([facility])[address] [place] [address] POCT ACTIVATED CLOTTING TIME UNSOLICITED RESULTSon 04-22-2023 POC ACTIVATED CLOTTING TIME 132 sec Normal 82-[address] [facility] Comment on above: Performed By: #### L [id number] ####[facility] ([facility])[address] [place] [address] POC ACTIVATED CLOTTING TIME 341 sec High 82-[address] [facility] Comment on above: Performed By: #### L [id number] ####[facility] ([facility])[address] [place] [address] POC ACTIVATED CLOTTING TIME 473 sec High 82-[address] [facility] Comment on above: Performed By: #### L [id number] ####[facility] ([facility])[address] [place] [address] POC ACTIVATED CLOTTING TIME 516 sec High 82-[address] [facility] Comment on above: Performed By: #### L [id number] ####[facility] ([facility])[address] [place] [address] POC ACTIVATED CLOTTING TIME 460 sec High 82-[address] [facility] Comment on above: Performed By: #### L [id number] ####[facility] ([facility])[address] [place] [address] POC ACTIVATED CLOTTING TIME 446 sec High 82-[address] [facility] Comment on above: Performed By: #### L [id number] ####[facility] ([facility])[address] [place] [address] POC ACTIVATED CLOTTING TIME 479 sec High 82-[address] [facility] Comment on above: Performed By: #### L [id number] ####[facility] ([facility])[address] [place] [address] POC ACTIVATED CLOTTING TIME 447 sec High 82-[address] [facility] Comment on above: Performed By: #### L [id number] ####[facility] ([facility])[address] [place] [address] POC ACTIVATED CLOTTING TIME 596 sec High 82-[address] [facility] Comment on above: Performed By: #### L [id number] ####[facility] ([facility])[address] [place] [address] POC ACTIVATED CLOTTING TIME 602 sec High 82-[address] [facility] Comment on above: Performed By: #### L [id number] ####[facility] ([facility])[address] [place] [address] POC ACTIVATED CLOTTING TIME 143 sec Normal 82-[address] [facility] Comment on above: Performed By: #### L [id number] ####[facility] ([facility])[address] [place] [address] POCT GLUCOSE METER UNSOLICIT ED RESULTSon 04-22-2023 Glucose [Mass/Vol] 152 mg/dL High 70-105 [facility] Comment on above: Order Comment: Waive d Testing in the ED is performed under the ED CLIA certificate #[id number]. Result Comment: ahoo ver7 Performed By: #### L [id number] ####[facility] ([facility])[address] [place] [address] Glucose [Mass/Vol] 167 mg/dL High 70-105 [facility] Comment on above: Order Comment: Waive d Testing in the ED is performed under the ED CLIA certificate #[id number]. Result Comment: vsan der3 Performed By: #### L [id number] ####[facility] ([employer])[address] [place] [address] Glucose [Mass/Vol] 156 mg/dL High 70-105 [facility] Comment on above: Order Comment: Waive d Testing in the ED is performed under the ED CLIA certificate #[id number]. Result Comment: vsan der3 Performed By: #### L [id number] ####[facility] ([facility])[address] [place] [address] Glucose [Mass/Vol] 121 mg/dL High 70-105 [facility] Comment on above: Order Comment: Waive d Testing in the ED is performed under the ED CLIA certificate #[id number]. Result Comment: ahoo ver7 Performed By: #### L [id number] ####[facility] ([facility])[address] [place] [address] Glucose [Mass/Vol] 122 mg/dL High 70-105 [facility] Comment on above: Order Comment: Waive d Testing in the ED is performed under the ED CLIA certificate #[id number]. Result Comment: nhay man Performed By: #### L [id number] ####[facility] ([facility])[address] [place] [address] Glucose [Mass/Vol] 137 mg/dL High 70-105 [facility] Comment on above: Order Comment: Waive d Testing in the ED is performed under the ED CLIA certificate #[id number]. Result Comment: cfit [email or web address] Performed By: #### L [id number] ####[facility] ([facility])[address] [place] [address] Glucose [Mass/Vol] 107 mg/dL High 70-105 [facility] Comment on above: Order Comment: Waive d Testing in the ED is performed under the ED CLIA certificate #[id number]. Result Comment: hste enr2 Performed By: #### L [id number] ####[facility] ([facility])[address] [place] [address] POCT PERFUSION PANEL UNSOLIC ITED RESULTSon 04-22-2023 CO2 [Moles/Vol] 25.0 mmol/L Normal 21.0-29.0 [facility] Comment on above: Performed By: #### L [id number] ####[facility] ([facility])[address] [place] [address] Glucose [Mass/Vol] 195 mg/dL High 70-105 [facility] Comment on above: Performed By: #### L [id number] ####[facility] ([facility])[address] [place] [address] HCO3 (Bld) [Moles/Vol] 23.6 mmol/L Normal 23.0-28.[address] [facility] Comment on above: Performed By: #### L [id number] ####[facility] ([facility])[address] [place] [address] Hematocrit (Bld) [Volume fraction] 27 % Low 38-[address] [facility] Comment on above: Performed By: #### L [id number] ####[facility] ([facility])[address] [place] [address] Hemoglobin (Bld) [Mass/Vol] 9.2 g/dL Low 12.0-17.[address] [facility] Comment on above: Performed By: #### L [id number] ####[facility] ([facility])[address] [place] [address] POCT BASE EXCESS -3.0 mmol/L Low -2.0-3.0 [facility] Comment on above: Performed By: #### L [id number] ####[facility] ([facility])[address] [address] POCT IONIZED CALCIUM 1.35 mmol/L High 1.12-1.[address] [facility] Comment on above: Performed By: #### L [id number] ####[facility] ([facility])[address] [address] POCT PCO2 47.6 mmHg Normal 41.0-51.[address] [facility] Comment on above: Performed By: #### L [id number] ####[facility] ([facility])[address] [address] POCT PH 7.30 Low 7.31-7.[address] [facility] Comment on above: Performed By: #### L [id number] ####[facility] ([facility])[address] [address] POCT PO2 355 mmHg High 80-[address] [facility] Comment on above: Performed By: #### L [id number] ####[facility] ([facility])[address] [address] POCT SO2 100 % High 95-[address] [facility] Comment on above: Performed By: #### L [id number] ####[facility] ([facility])[address] [address] Potassium [Moles/Vol] 3.2 mmol/L Low 3.5-4.[address] [facility] Comment on above: Performed By: #### L [id number] ####[facility] ([facility])[address] [place] [address] Sodium [Moles/Vol] 146 mmol/L Normal 138.0-146.0 [facility] Comment on above: Performed By: #### L [id number] ####[facility] ([facility])[address] [address] CO2 [Moles/Vol] 26.0 mmol/L Normal 21.0-29.0 [facility] Comment on above: Performed By: #### L [id number] ####[facility] ([facility])[address] [address] Glucose [Mass/Vol] 196 mg/dL High 70-105 [facility] Comment on above: Performed By: #### L [id number] ####[facility] ([facility])[address] [address] HCO3 (Bld) [Moles/Vol] 24.2 mmol/L Normal 23.0-28.[address] [facility] Comment on above: Performed By: #### L [id number] ####[facility] ([facility])[address] [address] Hematocrit (Bld) [Volume fraction] 21 % Low 38-[address] [facility] Comment on above: Performed By: #### L [id number] ####[facility] ([facility])[address] [place] [address] Hemoglobin (Bld) [Mass/Vol] 7.1 g/dL Low 12.0-17.[address] [facility] Comment on above: Performed By: #### L [id number] ####[facility] (BE[facility]ER)[address] [address] POCT BASE EXCESS -3.0 mmol/L Low -2.0-3.0 [facility] Comment on above: Performed By: #### L [id number] ####[facility] (BE[facility]ER)[address] [address] POCT IONIZED CALCIUM 1.19 mmol/L Normal 1.12-1.[address] [facility] Comment on above: Performed By: #### L [id number] ####[facility] (BE[facility]ER)[address] [place] [address] POCT PCO2 52.4 mmHg High 41.0-51.[address] [facility] Comment on above: Performed By: #### L [id number] ####[facility] ([facility])[address] [address] POCT PH 7.27 Low 7.31-7.[address] [facility] Comment on above: Performed By: #### L [id number] ####[facility] ([facility])[address] [address] POCT PO2 488 mmHg High 80-[address] [facility] Comment on above: Performed By: #### L [id number] ####[facility] ([facility])[address] [address] POCT SO2 100 % High 95-[address] [facility] Comment on above: Performed By: #### L [id number] ####[facility] ([facility])[address] [address] Potassium [Moles/Vol] 3.7 mmol/L Normal 3.5-4.[address] [facility] Comment on above: Performed By: #### L [id number] ####[facility] ([facility])[address] [address] Sodium [Moles/Vol] 145 mmol/L Normal 138.0-146.0 [facility] Comment on above: Performed By: #### L [id number] ####[facility] ([facility])[address] [address] CO2 [Moles/Vol] 24.0 mmol/L Normal 21.0-29.0 [facility] Comment on above: Performed By: #### L [id number] ####[facility] ([facility])[address] [address] Glucose [Mass/Vol] 177 mg/dL High 70-105 [facility] Comment on above: Performed By: #### L [id number] ####[facility] ([facility])[address] [place] [address] HCO3 (Bld) [Moles/Vol] 22.2 mmol/L Low 23.0-28.[address] [facility] Comment on above: Performed By: #### L [id number] ####[facility] ([facility])[address] [place] [address] Hematocrit (Bld) [Volume fraction] 21 % Low 38-[address] [facility] Comment on above: Performed By: #### L [id number] ####[facility] ([facility])[address] [place] [address] Hemoglobin (Bld) [Mass/Vol] 7.1 g/dL Low 12.0-17.[address] [facility] Comment on above: Performed By: #### L [id number] ####[facility] (BE[facility]ER)[address] [place] [address] POCT BASE EXCESS -4.0 mmol/L Low -2.0-3.0 [facility] Comment on above: Performed By: #### L [id number] ####[facility] (BE[facility]ER)[address] [place] [address] POCT IONIZED CALCIUM 1.32 mmol/L Normal 1.12-1.[address] [facility] Comment on above: Performed By: #### L [id number] ####[facility] ([facility])[address] [place] [address] POCT PCO2 44.7 mmHg Normal 41.0-51.[address] [facility] Comment on above: Performed By: #### L [id number] ####[facility] ([facility])[address] [place] [address] POCT PH 7.30 Low 7.31-7.[address] [facility] Comment on above: Performed By: #### L [id number] ####[facility] ([facility])[address] [place] [address] POCT PO2 449 mmHg High 80-[address] [facility] Comment on above: Performed By: #### L [id number] ####[facility] ([facility]ER)[address] [place] [address] POCT SO2 100 % High 95-[address] [facility] Comment on above: Performed By: #### L [id number] ####[facility] (BE[facility]ER)[address] [place] [address] Potassium [Moles/Vol] 4.4 mmol/L Normal 3.5-4.[address] [facility] Comment on above: Performed By: #### L [id number] ####[facility] ([facility]ER)[address] [place] [address] Sodium [Moles/Vol] 141 mmol/L Normal 138.0-146.0 [facility] Comment on above: Performed By: #### L [id number] ####[facility] (BE[facility]ER)[address] [place] [address] CO2 [Moles/Vol] 25.0 mmol/L Normal 21.0-29.0 [facility] Comment on above: Performed By: #### L [id number] ####[facility] (BE[facility]ER)[address] [place] [address] Glucose [Mass/Vol] 171 mg/dL High 70-105 [facility] Comment on above: Performed By: #### L [id number] ####[facility] (BEAKER)[address] [place] [address] HCO3 (Bld) [Moles/Vol] 24.0 mmol/L Normal 23.0-28.[address] [facility] Comment on above: Performed By: #### L [id number] ####[facility] ([facility])[address] [place] [address] Hematocrit (Bld) [Volume fraction] 26 % Low 38-[address] [facility] Comment on above: Performed By: #### L [id number] ####[facility] ([facility]ER)[address] [place] [address] Hemoglobin (Bld) [Mass/Vol] 8.8 g/dL Low 12.0-17.[address] [facility] Comment on above: Performed By: #### L [id number] ####[facility] ([facility]ER)[address] [place] [address] POCT BASE EXCESS -1.0 mmol/L Normal -2.0-3.0 [facility] Comment on above: Performed By: #### L [id number] ####[facility] ([facility])[address] [address] POCT IONIZED CALCIUM 1.06 mmol/L Low 1.12-1.[address] [facility] Comment on above: Performed By: #### L [id number] ####[facility] ([facility]ER)[address] [place] [address] POCT PCO2 38.1 mmHg Low 41.0-51.[address] [facility] Comment on above: Performed By: #### L [id number] ####[facility] ([facility]ER)[address] [address] POCT PH 7.41 Normal 7.31-7.[address] [facility] Comment on above: Performed By: #### L [id number] ####[facility] (BE[facility]ER)[address] [place] [address] POCT PO2 534 mmHg High 80-[address] [facility] Comment on above: Performed By: #### L [id number] ####[facility] (BE[facility]ER)[address] [address] POCT SO2 100 % High 95-[address] [facility] Comment on above: Performed By: #### L [id number] ####[facility] (BE[facility]ER)[address] [place] [address] Potassium [Moles/Vol] 4.1 mmol/L Normal 3.5-4.[address] [facility] Comment on above: Performed By: #### L [id number] ####[facility] ([facility]ER)[address] [place] [address] Sodium [Moles/Vol] 141 mmol/L Normal 138.0-146.0 [facility] Comment on above: Performed By: #### L [id number] ####[facility] ([facility]ER)[address] [place] [address] CO2 [Moles/Vol] 27.0 mmol/L Normal 21.0-29.0 [facility] Comment on above: Performed By: #### L [id number] ####[facility] ([facility])[address] [address] Glucose [Mass/Vol] 187 mg/dL High 70-105 [facility] Comment on above: Performed By: #### L [id number] ####[facility] ([facility])[address] [address] HCO3 (Bld) [Moles/Vol] 25.8 mmol/L Normal 23.0-28.[address] [facility] Comment on above: Performed By: #### L [id number] ####[facility] ([facility])[address] [address] Hematocrit (Bld) [Volume fraction] 26 % Low 38-[address] [facility] Comment on above: Performed By: #### L [id number] ####[facility] ([facility])[address] [place] [address] Hemoglobin (Bld) [Mass/Vol] 8.8 g/dL Low 12.0-17.[address] [facility] Comment on above: Performed By: #### L [id number] ####[facility] ([facility])[address] [address] POCT BASE EXCESS 1.0 mmol/L Normal -2.0-3.0 [facility] Comment on above: Performed By: #### L [id number] ####[facility] ([facility])[address] [address] POCT IONIZED CALCIUM 1.06 mmol/L Low 1.12-1.[address] [facility] Comment on above: Performed By: #### L [id number] ####[facility] ([facility])[address] [address] POCT PCO2 40.4 mmHg Low 41.0-51.[address] [facility] Comment on above: Performed By: #### L [id number] ####[facility] (BE[facility]ER)[address] [place] [address] POCT PH 7.41 Normal 7.31-7.[address] [facility] Comment on above: Performed By: #### L [id number] ####[facility] ([facility])[address] [place] [address] POCT PO2 506 mmHg High 80-[address] [facility] Comment on above: Performed By: #### L [id number] ####[facility] ([facility])[address] [address] POCT SO2 100 % High 95-[address] [facility] Comment on above: Performed By: #### L [id number] ####[facility] ([facility])[address] [address] Potassium [Moles/Vol] 4.2 mmol/L Normal 3.5-4.[address] [facility] Comment on above: Performed By: #### L [id number] ####[facility] [facility] ([facility])[address] [place] [address] Sodium [Moles/Vol] 141 mmol/L Normal 138.0-146.0 [facility] Comment on above: Performed By: #### L [id number] ####[facility] ([facility])[address] [address] CO2 [Moles/Vol] 23.0 mmol/L Normal 21.0-29.0 [facility] Comment on above: Performed By: #### L [id number] ####[facility] ([facility])[address] [address] Glucose [Mass/Vol] 211 mg/dL High 70-105 [facility] Comment on above: Performed By: #### L [id number] ####[facility] ([facility])[address] [place] [address] HCO3 (Bld) [Moles/Vol] 22.1 mmol/L Low 23.0-28.[address] [facility] Comment on above: Performed By: #### L [id number] ####[facility] ([facility])[address] [place] [address] Hematocrit (Bld) [Volume fraction] 28 % Low 38-[address] [facility] Comment on above: Performed By: #### L [id number] ####[facility] ([facility])[address] [place] [address] Hemoglobin (Bld) [Mass/Vol] 9.5 g/dL Low 12.0-17.[address] [facility] Comment on above: Performed By: #### L [id number] ####[facility] ([facility])[address] [place] [address] POCT BASE EXCESS -3.0 mmol/L Low -2.0-3.0 [facility] Comment on above: Performed By: #### L [id number] ####[facility] ([facility])[address] [place] [address] POCT IONIZED CALCIUM 1.08 mmol/L Low 1.12-1.[address] [facility] Comment on above: Performed By: #### L [id number] ####[facility] ([facility])[address] [place] [address] POCT PCO2 38.1 mmHg Low 41.0-51.[address] [facility] Comment on above: Performed By: #### L [id number] ####[facility] ([facility])[address] [place] [address] POCT PH 7.37 Normal 7.31-7.[address] [facility] Comment on above: Performed By: #### L [id number] ####[facility] ([facility])[address] [place] [address] POCT PO2 418 mmHg High 80-[address] [facility] Comment on above: Performed By: #### L [id number] ####[facility] ([facility])[address] [place] [address] POCT SO2 100 % High 95-[address] [facility] Comment on above: Performed By: #### L [id number] ####[facility] ([facility])[address] [place] [address] Potassium [Moles/Vol] 4.7 mmol/L Normal 3.5-4.[address] [facility] Comment on above: Performed By: #### L [id number] ####[facility] ([facility])[address] [place] [address] Sodium [Moles/Vol] 137 mmol/L Low 138.0-146.0 [facility] Comment on above: Performed By: #### L [id number] ####[facility] ([facility])[address] [place] [address] CO2 [Moles/Vol] 24.0 mmol/L Normal 21.0-29.0 [facility] Comment on above: Performed By: #### L [id number] ####[facility] ([facility])[address] [place] [address] Glucose [Mass/Vol] 203 mg/dL High 70-105 [facility] Comment on above: Performed By: #### L [id number] ####[facility] ([facility])[address] [place] [address] HCO3 (Bld) [Moles/Vol] 22.6 mmol/L Low 23.0-28.[address] [facility] Comment on above: Performed By: #### L [id number] ####[facility] ([facility])[address] [place] [address] Hematocrit (Bld) [Volume fraction] 26 % Low 38-[address] [facility] Comment on above: Performed By: #### L [id number] ####[facility] ([facility])[address] [place] [address] Hemoglobin (Bld) [Mass/Vol] 8.8 g/dL Low 12.0-17.[address] [facility] Comment on above: Performed By: #### L [id number] ####[facility] ([facility])[address] [place] [address] POCT BASE EXCESS -2.0 mmol/L Normal -2.0-3.0 [facility] Comment on above: Performed By: #### L [id number] ####[facility] ([facility])[address] [address] POCT IONIZED CALCIUM 1.06 mmol/L Low 1.12-1.[address] [facility] Comment on above: Performed By: #### L [id number] ####[facility] ([facility])[address] [place] [address] POCT PCO2 38.7 mmHg Low 41.0-51.[address] [facility] Comment on above: Performed By: #### L [id number] ####[facility] ([facility])[address] [address] POCT PH 7.38 Normal 7.31-7.[address] [facility] Comment on above: Performed By: #### L [id number] ####[facility] ([facility])[address] [place] [address] POCT PO2 377 mmHg High 80-[address] [facility] Comment on above: Performed By: #### L [id number] ####[facility] ([facility])[address] [place] [address] POCT SO2 100 % High 95-[address] [facility] Comment on above: Performed By: #### L [id number] ####[facility] ([facility])[address] [place] [address] Potassium [Moles/Vol] 5.0 mmol/L High 3.5-4.[address] [facility] Comment on above: Performed By: #### L [id number] ####[facility] ([facility])[address] [place] [address] Sodium [Moles/Vol] 137 mmol/L Low 138.0-146.0 [facility] Comment on above: Performed By: #### L [id number] ####[facility] ([facility])[address] [place] [address] CO2 [Moles/Vol] 24.0 mmol/L Normal 21.0-29.0 [facility] Comment on above: Performed By: #### L [id number] ####[facility] ([facility])[address] [address] Glucose [Mass/Vol] 193 mg/dL High 70-105 [facility] Comment on above: Performed By: #### L [id number] ####[facility] ([facility])[address] [address] HCO3 (Bld) [Moles/Vol] 23.3 mmol/L Normal 23.0-28.[address] [facility] Comment on above: Performed By: #### L [id number] ####[facility] ([facility])[address] [address] Hematocrit (Bld) [Volume fraction] 28 % Low 38-[address] [facility] Comment on above: Performed By: #### L [id number] ####[facility] ([facility])[address] [address] Hemoglobin (Bld) [Mass/Vol] 9.5 g/dL Low 12.0-17.[address] [facility] Comment on above: Performed By: #### L [id number] ####[facility] ([facility])[address] [address] POCT BASE EXCESS -2.0 mmol/L Normal -2.0-3.0 [facility] Comment on above: Performed By: #### L [id number] ####[facility] ([facility])[address] [address] POCT IONIZED CALCIUM 1.07 mmol/L Low 1.12-1.[address] [facility] Comment on above: Performed By: #### L [id number] ####[facility] ([facility])[address] [address] POCT PCO2 38.7 mmHg Low 41.0-51.[address] [facility] Comment on above: Performed By: #### L [id number] ####[facility] ([facility])[address] [address] POCT PH 7.39 Normal 7.31-7.[address] [facility] Comment on above: Performed By: #### L [id number] ####[facility] ([facility])[address] [address] POCT PO2 367 mmHg High 80-[address] [facility] Comment on above: Performed By: #### L [id number] ####[facility] ([facility])[address] [address] POCT SO2 100 % High 95-[address] [facility] Comment on above: Performed By: #### L [id number] ####[facility] ([facility])[address] [address] Potassium [Moles/Vol] 5.6 mmol/L High 3.5-4.[address] [facility] Comment on above: Performed By: #### L [id number] ####[facility] ([facility])[address] [place] [address] Sodium [Moles/Vol] 138 mmol/L Normal 138.0-146.0 [facility] Comment on above: Performed By: #### L [id number] ####[facility] ([facility])[address] [address] CO2 [Moles/Vol] 25.0 mmol/L Normal 21.0-29.0 [facility] Comment on above: Performed By: #### L [id number] ####[facility] ([facility])[address] [place] [address] Glucose [Mass/Vol] 165 mg/dL High 70-105 [facility] Comment on above: Performed By: #### L [id number] ####[facility] ([facility])[address] [place] [address] HCO3 (Bld) [Moles/Vol] 23.5 mmol/L Normal 23.0-28.[address] [facility] Comment on above: Performed By: #### L [id number] ####[facility] ([facility])[address] [address] Hematocrit (Bld) [Volume fraction] 27 % Low 38-[address] [facility] Comment on above: Performed By: #### L [id number] ####[facility] ([facility])[address] [place] [address] Hemoglobin (Bld) [Mass/Vol] 9.2 g/dL Low 12.0-17.[address] [facility] Comment on above: Performed By: #### L [id number] ####[facility] ([facility])[address], [place] [address] POCT BASE EXCESS -1.0 mmol/L Normal -2.0-3.0 [facility] Comment on above: Performed By: #### L [id number] ####[facility] ([facility])[address] [place] [address] POCT IONIZED CALCIUM 1.08 mmol/L Low 1.12-1.[address] [facility] Comment on above: Performed By: #### L [id number] ####[facility] ([facility])[address] [place] [address] POCT PCO2 38.4 mmHg Low 41.0-51.[address] [facility] Comment on above: Performed By: #### L [id number] ####[facility] ([facility])[address] [place] [address] POCT PH 7.39 Normal 7.31-7.[address] [facility] Comment on above: Performed By: #### L [id number] ####[facility] ([facility])[address] [place] [address] POCT PO2 387 mmHg High 80-[address] [facility] Comment on above: Performed By: #### L [id number] ####[facility] ([facility])[address] [place] [address] POCT SO2 100 % High 95-[address] [facility] Comment on above: Performed By: #### L [id number] ####[facility] ([facility])[address] [place] [address] Potassium [Moles/Vol] 5.9 mmol/L High 3.5-4.[address] [facility] Comment on above: Performed By: #### L [id number] ####[facility] ([facility])[address] [place] [address] Sodium [Moles/Vol] 138 mmol/L Normal 138.0-146.0 [facility] Comment on above: Performed By: #### L [id number] ####[facility] ([facility])[address] [place] [address] CO2 [Moles/Vol] 26.0 mmol/L Normal 21.0-29.0 [facility] Comment on above: Performed By: #### L [id number] ####[facility] ([facility])[address] [place] [address] Glucose [Mass/Vol] 142 mg/dL High 70-105 [facility] Comment on above: Performed By: #### L [id number] ####[facility] ([facility])[address] [place] [address] HCO3 (Bld) [Moles/Vol] 24.5 mmol/L Normal 23.0-28.[address] [facility] Comment on above: Performed By: #### L [id number] ####[facility] ([facility])[address] [place] [address] Hematocrit (Bld) [Volume fraction] 24 % Low 38-[address] [facility] Comment on above: Performed By: #### L [id number] ####[facility] ([facility])[address] [place] [address] Hemoglobin (Bld) [Mass/Vol] 8.2 g/dL Low 12.0-17.[address] [facility] Comment on above: Performed By: #### L [id number] ####[facility] ([facility])[address] [place] [address] POCT BASE EXCESS -1.0 mmol/L Normal -2.0-3.0 [facility] Comment on above: Performed By: #### L [id number] ####[facility] ([facility])[address] [place] [address] POCT IONIZED CALCIUM 0.99 mmol/L Low 1.12-1.[address] [facility] Comment on above: Performed By: #### L [id number] ####[facility] ([facility])[address] [place] [address] POCT PCO2 44.6 mmHg Normal 41.0-51.[address] [facility] Comment on above: Performed By: #### L [id number] ####[facility] ([facility])[address] [place] [address] POCT PH 7.35 Normal 7.31-7.[address] [facility] Comment on above: Performed By: #### L [id number] ####[facility] ([facility])[address] [place] [address] POCT PO2 462 mmHg High 80-[address] [facility] Comment on above: Performed By: #### L [id number] ####[facility] ([facility])[address] [place] [address] POCT SO2 100 % High 95-[address] [facility] Comment on above: Performed By: #### L [id number] ####[facility] ([facility])[address] [place] [address] Potassium [Moles/Vol] 6.2 mmol/L Critically high 3.5-4.[address] [facility] Comment on above: Performed By: #### L [id number] ####[facility] ([facility])[address] [place] [address] Sodium [Moles/Vol] 136 mmol/L Low 138.0-146.0 [facility] Comment on above: Performed By: #### L [id number] ####[facility] ([facility])[address] [place] [address] CO2 [Moles/Vol] 24.0 mmol/L Normal 21.0-29.0 [facility] Comment on above: Performed By: #### L [id number] ####[facility] ([facility])[address] [place] [address] Glucose [Mass/Vol] 151 mg/dL High 70-105 [facility] Comment on above: Performed By: #### L [id number] ####[facility] ([facility])[address] [address] HCO3 (Bld) [Moles/Vol] 22.6 mmol/L Low 23.0-28.[address] [facility] Comment on above: Performed By: #### L [id number] ####[facility] ([facility])[address], [place] [address] Hematocrit (Bld) [Volume fraction] 38 % Normal 38-[address] [facility] Comment on above: Performed By: #### L [id number] ####[facility] ([facility])[address] [address] Hemoglobin (Bld) [Mass/Vol] 12.9 g/dL Normal 12.0-17.[address] [facility] Comment on above: Performed By: #### L [id number] ####[facility] ([facility])[address] [place] [address] POCT BASE EXCESS -4.0 mmol/L Low -2.0-3.0 [facility] Comment on above: Performed By: #### L [id number] ####[facility] ([facility])[address] [place] [address] POCT IONIZED CALCIUM 1.25 mmol/L Normal 1.12-1.[address] [facility] Comment on above: Performed By: #### L [id number] ####[facility] ([facility])[address] [place] [address] POCT PCO2 47.5 mmHg Normal 41.0-51.[address] [facility] Comment on above: Performed By: #### L [id number] ####[facility] ([facility])[address] [place] [address] POCT PH 7.29 Low 7.31-7.[address] [facility] Comment on above: Performed By: #### L [id number] ####[facility] ([facility])[address] [address] POCT PO2 336 mmHg High 80-[address] [facility] Comment on above: Performed By: #### L [id number] ####[facility] ([facility])[address] [address] POCT SO2 100 % High 95-[address] [facility] Comment on above: Performed By: #### L [id number] ####[facility] ([facility])[address] [address] Potassium [Moles/Vol] 4.4 mmol/L Normal 3.5-4.[address] [facility] Comment on above: Performed By: #### L [id number] ####[facility] ([facility])[address] [place] [address] Sodium [Moles/Vol] 139 mmol/L Normal 138.0-146.0 [facility] Comment on above: Performed By: #### L [id number] ####[facility] ([facility])[address] [address] CO2 [Moles/Vol] 23.0 mmol/L Normal 21.0-29.0 [facility] Comment on above: Performed By: #### L [id number] ####[facility] ([facility])[address] [place] [address] Glucose [Mass/Vol] 123 mg/dL High 70-105 [facility] Comment on above: Performed By: #### L [id number] ####[facility] ([facility])[address] [place] [address] HCO3 (Bld) [Moles/Vol] 22.1 mmol/L Low 23.0-28.[address] [facility] Comment on above: Performed By: #### L [id number] ####[facility] ([facility])[address] [place] [address] Hematocrit (Bld) [Volume fraction] 38 % Normal 38-[address] [facility] Comment on above: Performed By: #### L [id number] ####[facility] ([facility])[address] [place] [address] Hemoglobin (Bld) [Mass/Vol] 12.9 g/dL Normal 12.0-17.[address] [facility] Comment on above: Performed By: #### L [id number] ####[facility] ([facility])[address] [place] [address] POCT BASE EXCESS -3.0 mmol/L Low -2.0-3.0 [facility] Comment on above: Performed By: #### L [id number] ####[facility] ([facility])[address] [place] [address] POCT IONIZED CALCIUM 1.25 mmol/L Normal 1.12-1.[address] [facility] Comment on above: Performed By: #### L [id number] ####[facility] ([facility])[address] [place] [address] POCT PCO2 39.3 mmHg Low 41.0-51.[address] [facility] Comment on above: Performed By: #### L [id number] ####[facility] ([facility])[address] [place] [address] POCT PH 7.36 Normal 7.31-7.[address] [facility] Comment on above: Performed By: #### L [id number] ####[facility] ([facility])[address] [place] [address] POCT PO2 412 mmHg High 80-[address] [facility] Comment on above: Performed By: #### L [id number] ####[facility] ([facility])[address] [place] [address] POCT SO2 100 % High 95-[address] [facility] Comment on above: Performed By: #### L [id number] ####[facility] ([facility])[address] [place] [address] Potassium [Moles/Vol] 3.8 mmol/L Normal 3.5-4.[address] [facility] Comment on above: Performed By: #### L [id number] ####[facility] ([facility] [employer])[address] [place] [address] Sodium [Moles/Vol] 140 mmol/L Normal 138.0-146.0 [facility] Comment on above: Performed By: #### L [id number] ####[facility] ([facility])[address] [place] [address] PROTIME-INRon 04-22-2023 INR IN PPP BY COAGULATION ASSAY 1.60 High 0.90-1.[address] [facility] Comment on above: Result Comment: ACCC [...] CHEST 1995;108:231S-246S. Performed By: #### L [id number] ####[facility] ([facility])[address] [place] [address] PROTHROMBIN TIME (PT) IN PPP BY COAGULATION ASSAY 19.1 Seconds High 12.3-14.[address] [facility] Comment on above: Performed By: #### L [id number] ####[facility] ([facility])[address] [place] [address] INR IN PPP BY COAGULATION ASSAY 1.72 High 0.90-1.[address] [facility] Comment on above: Result Comment: [facility] P RECOMMENDED INR FOR WARFARIN THERAPY CONDITION INRPROPHYLAXIS OF VENOUS THROMBOSIS 2-3(HIGH-RISK SURGERY)TREATMENT OF VENOUS THROMBOSIS 2-3TREATMENT OF PULMONARY EMBOLISM 2-3PREVENTION OF SYSTEMIC EMBOLISM: 2-3 ACUTE MYOCARDIAL INFARCTION TISSUE HEART VALVES VALVULAR HEART DISEASE ATRIAL FIBRILLATION RECURRENT SYSTEMIC EMBOLISMMECHANICAL HEART VALVE 2.5-3.5 FROM: ORAL ANTICOAGULANTS. MECHANISM OF ACTION, CLINICAL EFFECTIVENESS, AND OPTIMAL THERAPEUTIC RANGE. CHEST 1995;108:231S-246S. Performed By: #### L [id number] ####[facility] ([employer])[address] [place] [address] PROTHROMBIN TIME (PT) IN PPP BY COAGULATION ASSAY 20.2 Seconds High 12.3-14.[address] [facility] Comment on above: Performed By: #### L [id number] ####[facility] ([facility])[address] [place] [address] INR IN PPP BY COAGULATION ASSAY 2.00 High 0.90-1.[address] [facility] Comment on above: Order Comment: Pre-o [...] CHEST 1995;108:231S-246S. Performed By: #### L [id number] ####[facility] ([employer])[address] [place] [address] PROTHROMBIN TIME (PT) IN PPP BY COAGULATION ASSAY 22.8 Seconds High 12.3-14.[address] [facility] Comment on above: Order Comment: Pre-o p diagnosis:NSTEMI (non-ST elevated myocardial infarction) (CMS/HCC) [I21.4]Acute non-ST segment elevation myocardial infarction (CMS/HCC) [I21.4]Coronary artery disease, unspecified vessel or lesion type, unspecified whether angina present, unspecified whether [place] or transplanted heart [I25.10] Performed By: #### L [id number] ####[facility] ([facility])[address] [place] [address] 36on 04-21-2023 36 Called patient and l eft voicemail. Updated NPO after midnight and not to take any medications in the AM. Surgery scheduled for 0730am. [facility] ANESon 04-21-2023 ANES [facility] Telephoneon 04-21-2023 Telephone [phone] Gui Ortiz 1955 M Date Provider Department Center 04/21/2023 [id number]-FUNZOOSLPOKAREY [facility] Family History Family history unknown: Yes Normal [facility] APTTon 04-09-2023 ACTIVATED PARTIAL THROMBOPLASTIN TIME IN PPP BY COAGULATION ASSAY 34.7 Seconds Normal 25.0-35.[address] [facility] Comment on above: Result Comment: Clin ical significance of the APTT is questionable in the presence of heparin. Performed By: #### L [id number] ####[facility] ([facility])[address] [place] [address] BASIC METABOLIC PANELon 03-18 Anion gap [Moles/Vol] 11 mmol/L Normal 7-[address] [facility] Comment on above: Performed By: #### L [id number] ####[facility] ([facility])[address] [place] [address] Calcium [Mass/Vol] 9.8 mg/dL Normal 8.6-10.3 [facility] Comment on above: Performed By: #### L [id number] ####[facility] ([facility])[address] [place] [address] Chloride [Moles/Vol] 105 mmol/L Normal 98-[address] [facility] Comment on above: Performed By: #### L [id number] ####[facility] ([facility])[address] [place] [address] CO2 [Moles/Vol] 25 mmol/L Normal 21-31 [facility] Comment on above: Performed By: #### L [id number] ####[facility] (BEAKER)[address] [place] [address] Creatinine [Mass/Vol] 0.91 mg/dL Normal 0.70-1.[address] [facility] Comment on above: Performed By: #### L [id number] ####[facility] (BEAKER)[address] [place] [address] GLOMERULAR FILTRATION RATE ML/MIN/1.73 SQ M.PREDICTED 91.2 mL/min/1.73m*2 Normal >[address] [facility] Comment on above: Result Comment: [facility]???s estimated glomerular filtration rate (eGFR) will [...] of individuals. Performed By: #### L [id number] ####[facility] ([facility])[address] [place] [address] Glucose [Mass/Vol] 105 mg/dL High 70-100 [facility] Comment on above: Performed By: #### L [id number] ####[facility] ([facility] [facility] [place] [address] Potassium [Moles/Vol] 3.9 mmol/L Normal 3.5-5.[address] [facility] Comment on above: Performed By: #### L [id number] ####[facility] ([facility])[address] [place] [address] Sodium [Moles/Vol] 137 mmol/L Normal 136-145 [facility] Comment on above: Performed By: #### L [id number] ####[facility] ([facility])[address] [place] [address] Urea nitrogen [Mass/Vol] 15 mg/dL Normal 7-[address] [facility] Comment on above: Performed By: #### L [id number] ####[facility] ([facility])[address] [place] [address] UREA NITROGEN/CREATININ E (MASS RATIO) IN SER/PLAS 16.[address] [facility] Comment on above: Performed By: #### L [id number] ####[facility] ([facility])[address] [place] [address] CBC WITH AUTO DIFFERENTIALon 04-09-2023 Basophils (Bld) [#/Vol] 0.05 10*3/uL Normal 0.00-0.[address] [facility] Comment on above: Performed By: #### L [id number] ####[facility] ([facility])[address] [place] [address] Basophils/100 WBC (Bld) 0.8 % Normal 0.0-1.[address] [facility] Comment on above: Performed By: #### L [id number] ####[facility] ([facility])[address] [place] [address] Eosinophils (Bld) [#/Vol] 0.09 10*3/uL Normal 0.00-0.[address] [facility] Comment on above: Performed By: #### L [id number] ####[facility] ([facility])[address] [place] [address] Eosinophils/100 WBC (Bld) 1.4 % Normal 0.0-6.[address] [facility] Comment on above: Performed By: #### L [id number] ####[facility] ([facility])[address] [place] [address] Erythrocyte distribution width (RBC) [Ratio] 13.1 % Normal 11.5-15.[address] [facility] Comment on above: Performed By: #### L [id number] ####[facility] ([facility])[address] [place] [address] ERYTHROCYTE MEAN CORPUSCULAR HEMOGLOBIN CONCENTRATION (G/DL) BY AUTOMATED 33.3 g/dL Normal 32.0-35.[address] [facility] Comment on above: Performed By: #### L [id number] ####[facility] ([facility])[address] [place] [address] Hematocrit (Bld) [Volume fraction] 43.0 % Normal 39.0-55.[address] [facility] Comment on above: Performed By: #### L [id number] ####[facility] ([facility])[address] [place] [address] Hemoglobin (Bld) [Mass/Vol] 14.3 g/dL Normal 13.0-17.[address] [facility] Comment on above: Performed By: #### L [id number] ####[facility] ([facility])[address] [place] [address] Immature granulocytes (Bld) [#/Vol] 0.03 10*3/uL Normal 0.00-0.[address] [facility] Comment on above: Performed By: #### L [id number] ####[facility] ([facility])[address] [place] [address] Immature granulocytes/100 WBC (Bld) 0.5 % Normal 0.0-1.[address] [facility] Comment on above: Performed By: #### L [id number] ####[facility] ([facility])[address] [place] [address] Lymphocytes (Bld) [#/Vol] 2.46 10*3/uL Normal 1.20-4.[address] [facility] Comment on above: Performed By: #### L [id number] ####[facility] ([facility])[address] [place] [address] Lymphocytes/100 WBC (Bld) 38.2 % Normal 20.0-45.[address] [facility] Comment on above: Performed By: #### L [id number] ####[facility] ([facility])[address] [place] [address] MCH (RBC) [Entitic mass] 30.4 pg Normal 27.0-33.[address] [facility] Comment on above: Performed By: #### L [id number] ####[facility] ([facility])[address] [place] [address] MCV (RBC) [Entitic vol] 91.3 fL Normal 82.0-98.[address] [facility] Comment on above: Performed By: #### L [id number] ####[facility] ([facility])[address] [place] [address] Monocytes (Bld) [#/Vol] 0.51 10*3/uL Normal 0.10-1.[address] [facility] Comment on above: Performed By: #### L [id number] ####[facility] ([facility])[address] [place] [address] Monocytes/100 WBC (Bld) 7.9 % Normal 5.0-12.[address] [facility] Comment on above: Performed By: #### L [id number] ####[facility] ([facility])[address] [place] [address] Neutrophils (Bld) [#/Vol] 3.30 10*3/uL Normal 1.60-7.[address] [facility] Comment on above: Performed By: #### L [id number] ####[facility] ([facility])[address], [place] [address] Neutrophils/100 WBC (Bld) 51.2 % Normal 40.0-72.[address] [facility] Comment on above: Performed By: #### L [id number] ####[facility] ([facility])[address] [address] NRBC (PER 100 WBCS) BY AUTOMATED COUNT 0.0 % Normal [address] [facility] Comment on above: Performed By: #### L [id number] ####[facility] ([facility])[address] [address] PLATELETS (10*3/UL) IN BLOOD AUTOMATED COUNT 281 10*3/uL Normal 150-[address] [facility] Comment on above: Performed By: #### L [id number] ####[facility] ([facility])[address], [place] [address] RBC (Bld) [#/Vol] 4.71 10*6/uL Normal 4.20-5.70 [facility] Comment on above: Performed By: #### L [id number] ####[facility] ([facility])[address] [place] [address] WBC (Bld) [#/Vol] 6.44 10*3/uL Normal 4.00-10.60 [facility] Comment on above: Performed By: #### L [id number] ####[facility] ([facility])[address] [place] [address] ETHANOLon 04-09-2023 ETHANOL (MG/DL) IN SER/PLAS <[address] [facility] Comment on above: Result Comment: No E thanol detected Performed By: #### L [id number] ####[facility] ([facility])[address] [place] [address] ETHANOL CALCULATED (%) Normal [facility] Comment on above: Performed By: #### L [id number] ####[facility] ([facility])[address] [place] [address] Follow-Upon 04-09-2023 Follow-Up Normal [facility] HEMOGLOBIN A1Con 04-09-2023 Glucose [Mass/Vol] 128 mg/dL [facility] Comment on above: Performed By: #### L [id number] ####[facility] ([facility])[address] [place] [address] HbA1c (Bld) [Mass fraction] 6.1 % High 4.0-6.[address] [facility] Comment on above: Performed By: #### L [id number] ####[facility] ([facility])[address] [place] [address] HPon 04-09-[address] [facility] Labon 04-09-2023 Lab [id number] Gui Ortiz 1955 M Date Provider Department Center 04/09/2023 2245-[facility] LAB RESOURCE [facility] C Family History Family history unknown: Yes Normal [facility] MRSA/MSSA DNA NASALon 2022 MRSA DNA Negative Normal Negative [facility] Comment on above: Order Comment: Testi [...] preclude nasal colonization. Performed By: #### L [id number] ####[facility] ([facility])[address] [place] [address] MSSA DNA Negative Normal Negative [facility] Comment on above: Order Comment: Testi [...] preclude nasal colonization. Performed By: #### L [id number] ####[facility] ([facility])[address] [place] [address] Orders Onlyon 04-09-2023 Orders Only [id number] Gui Ortiz 1955 M Date Provider Department Center 04/09/2023 [facility] Family History Family history unknown: Yes Normal [facility] PROTIME-INRon 04-09-2023 INR IN PPP BY COAGULATION ASSAY 1.00 Normal 0.90-1.[address] [facility] Comment on above: Result Comment: ACCC [...] CHEST 1995;[id number]. Performed By: #### L [id number] ####[facility] ([facility])[address] [place] [address] PROTHROMBIN TIME (PT) IN PPP BY COAGULATION ASSAY 13.2 Seconds Normal 12.3-14.[address] [facility] Comment on above: Performed By: #### L [id number] ####[facility] ([facility])[address] [place] [address] TOXICOLOGY PANEL URINEon AMPHETAMINE+METHAM PHETAMINE SCREEN (PRESENCE) IN URINE Negative Normal Negative [facility] Comment on above: Performed By: #### L [id number] ####[facility] ([facility])[address] [place] [address] BARBITURATES PRESENCE IN URINE BY SCREEN METHOD Negative Normal Negative [facility] Comment on above: Performed By: #### L [id number] ####[facility] ([facility])[address] [place] [address] Benzodiazepines Ql (U) Negative Normal Negative [facility] Comment on above: Performed By: #### L [id number] ####[facility] ([facility])[address] [place] [address] CANNABINOID (PRESENCE) IN URINE BY SCREEN METHOD Negative Normal Negative [facility] Comment on above: Performed By: #### L [id number] ####[facility] ([facility])[address] [place] [address] Cocaine Ql (U) Negative Normal Negative [facility] Comment on above: Performed By: #### L [id number] ####[facility] ([facility])[address] [place] [address] METHADONE (PRESENCE) IN URINE BY SCREEN METHOD Normal [facility] Comment on above: Result Comment: Meth adone being sent out. Results to follow. Performed By: #### L [id number] ####[facility] ([facility])[address] [place] [address] OPIATES (PRESENCE) IN URINE BY SCREEN METHOD Negative Normal Negative [facility] Comment on above: Performed By: #### L [id number] ####[facility] ([facility])[address] [place] [address] PHENCYCLIDINE PRESENCE IN URINE BY SCREEN METHOD Negative Normal Negative [facility] Comment on above: Performed By: #### L [id number] ####[facility] ([facility])[address] [place] [address] Propoxyphene Screen Ql (U) Negative Normal Negative [facility] Comment on above: Performed By: #### L [id number] ####[facility] ([facility])[address] [place] [facility] [address] TRICYCLIC ANTIDEPRESSANTS (PRESENCE) IN URINE Negative Normal Negative [facility] Comment on above: Performed By: #### L [id number] ####[facility] ([facility])[address] [facility] [address] TYPE AND SCREENon 04-09-2023 AB SCREEN Negative Normal [facility] Comment on above: Performed By: #### L [id number] ####[facility] BLOOD BANK, ABO group Nom (Bld) O Normal [facility] Comment on above: Performed By: #### L [id number] ####[facility] BLOOD [facility], RH TYPE IN BLOOD Positive Normal [facility] Comment on above: Performed By: #### L [id number] ####[facility] BLOOD B[facility], URINALYSISon 04-09-2023 BILIRUBIN, TOTAL PRESENCE IN URINE Negative Normal Negative [facility] Comment on above: Performed By: #### L [id number] ####[facility] ([facility])[address] [place] [address] Clarity (U) Clear Normal Clear [facility] Comment on above: Performed By: #### L [id number] ####[facility] ([facility])[address] [place] [address] Color (U) Yellow Normal Yellow [facility] Comment on above: Performed By: #### L [id number] ####[facility] ([facility])[address] [place] [address] Glucose (U) [Mass/Vol] Negative Normal Negative [facility] Comment on above: Performed By: #### L [id number] ####[facility] ([facility])[address] [place] [address] HEMOGLOBIN PRESENCE IN URINE Small Abnormal Negative [facility] Comment on above: Performed By: #### L [id number] ####[facility] ([facility])[address] [place] [address] Ketones Ql (U) Negative Normal Negative [facility] Comment on above: Performed By: #### L [id number] ####[facility] ([facility])[address] [place] [address] LEUKOCYTE ESTERASE PRESENCE IN URINE BY TEST STRIP Negative Normal Negative [facility] Comment on above: Performed By: #### L [id number] ####[facility] ([facility])[address] [place] [address] NITRITE PRESENCE IN URINE Negative Normal Negative [facility] Comment on above: Performed By: #### L [id number] ####[facility] ([facility])[address] [place] [address] pH (U) 6.0 [pH] Normal 5.0-8.[address] [facility] Comment on above: Performed By: #### L [id number] ####[facility] ([facility])[address] [place] [address] Protein (U) [Mass/Vol] Negative Normal Negative [facility] Comment on above: Performed By: #### L [id number] ####[facility] ([facility])[address] [place] [address] Specific gravity (U) [Rel density] 1.012 Low 1.015-1.[address] [facility] Comment on above: Performed By: #### L [id number] ####[facility] ([facility])[address] [place] [address] URINALYSIS MICROSCOPICon CASTS IN URINE Normal [facility] Comment on above: Performed By: #### L [id number] ####[facility] ([facility])[address] [place] [address] CRYSTALS IN URINE Normal [facility] Comment on above: Performed By: #### L [id number] ####[facility] ([facility])[address] [place] [address] RBC (#/HPF) IN URINE SEDIMENT 3-[address] [facility] Comment on above: Performed By: #### L [id number] ####[facility] ([facility])[address] [place] [address] SQUAMOUS EPITHELIAL CELLS (#/HPF) IN URINE SEDIMENT None Seen Normal None Seen, Occasional [facility] Comment on above: Performed By: #### L [id number] ####[facility] ([facility])[address] [place] [address] WBC (LEUKOCYTE) (#/HPF) IN URINE SEDIMENT None Seen Normal None Seen [facility] Comment on above: Performed By: #### L [id number] ####[facility] ([facility])[address] [place] [address] Documentationon 04-01-[address] [facility] 30on 03-23-[address] [facility] [address] [facility] ANTI-XA (HEPARIN LEVEL)on HEPARIN UNFRACTIONATED (U/ML) IN PPP BY CHROMOGENIC METHOD <0.10 Invalid Interpretation Code 0.3-0.[address] [facility] Comment on above: Order Comment: Check anti-Xa level every 6 hours while on heparin infusion, or per protocol. Result Comment: Blanca roxaban and Apixaban will interfere with the anti Xa assay used to monitor UFH and LMWH. Performed By: #### L [id number] ####[facility] ([facility])[address] [place] [address] BASIC METABOLIC PANELon 10-0 Anion gap [Moles/Vol] 11 mmol/L Normal 7-[address] [facility] Comment on above: Performed By: #### L [id number] ####[facility] ([facility])[address] [place] [address] Calcium [Mass/Vol] 9.1 mg/dL Normal 8.6-10.3 [facility] Comment on above: Performed By: #### L [id number] ####[facility] ([facility])[address] [place] [address] Chloride [Moles/Vol] 107 mmol/L Normal 98-[address] [facility] Comment on above: Performed By: #### L [id number] ####[facility] ([facility])[address] [place] [address] CO2 [Moles/Vol] 23 mmol/L Normal 21-31 [facility] Comment on above: Performed By: #### L [id number] ####[facility] ([facility])[address] [place] [address] Creatinine [Mass/Vol] 0.85 mg/dL Normal 0.70-1.[address] [facility] Comment on above: Performed By: #### L [id number] ####[facility] ([facility])[address] [place] [address] GLOMERULAR FILTRATION RATE ML/MIN/1.73 SQ M.PREDICTED 94.1 mL/min/1.73m*2 Normal >60.[address] [facility] Comment on above: Result Comment: The [facility]???s estimated glomerular filtration rate (eGFR) will [...] of individuals. Performed By: #### L [id number] ####[facility] ([facility])[address] [place] [address] Glucose [Mass/Vol] 103 mg/dL High 70-100 [facility] Comment on above: Performed By: #### L [id number] ####[facility] ([facility])[address] [place] [address] Potassium [Moles/Vol] 3.8 mmol/L Normal 3.5-5.[address] [facility] Comment on above: Performed By: #### L [id number] ####[facility] ([facility])[address] [place] [address] Sodium [Moles/Vol] 137 mmol/L Normal 136-145 [facility] Comment on above: Performed By: #### L [id number] ####[facility] ([facility])[address] [place] [address] Urea nitrogen [Mass/Vol] 12 mg/dL Normal 7-[address] [facility] Comment on above: Performed By: #### L [id number] ####[facility] ([facility])[address] [place] [address] UREA NITROGEN/CREATININ E (MASS RATIO) IN SER/PLAS 14.[address] [facility] Comment on above: Performed By: #### L [id number] ####[facility] ([facility])[address] [place] [address] CBCon 03-23-2023 Erythrocyte distribution width (RBC) [Ratio] 13.0 % Normal 11.5-15.[address] [facility] Comment on above: Performed By: #### L [id number] ####[facility] ([facility])[address] [place] [address] ERYTHROCYTE MEAN CORPUSCULAR HEMOGLOBIN CONCENTRATION (G/DL) BY AUTOMATED 34.5 g/dL Normal 32.0-35.[address] [facility] Comment on above: Performed By: #### L [id number] ####[facility] ([facility])[address] [place] [address] Hematocrit (Bld) [Volume fraction] 41.4 % Normal 39.0-55.[address] [facility] Comment on above: Performed By: #### L [id number] ####[facility] ([facility])[address] [place] [address] Hemoglobin (Bld) [Mass/Vol] 14.3 g/dL Normal 13.0-17.[address] [facility] Comment on above: Performed By: #### L [id number] ####[facility] ([facility])[address] [place] [address] MCH (RBC) [Entitic mass] 30.4 pg Normal 27.0-33.[address] [facility] Comment on above: Performed By: #### L [id number] ####[facility] ([facility])[address] [place] [address] MCV (RBC) [Entitic vol] 87.9 fL Normal 82.0-98.[address] [facility] Comment on above: Performed By: #### L [id number] ####[facility] ([facility])[address] [place] [address] PLATELETS (10*3/UL) IN BLOOD AUTOMATED COUNT 243 10*3/uL Normal 150-[address] [facility] Comment on above: Performed By: #### L [id number] ####[facility] ([facility])[address] [place] [address] RBC (Bld) [#/Vol] 4.71 10*6/uL Normal 4.20-5.70 [facility] Comment on above: Performed By: #### L [id number] ####[facility] ([facility])[address] [place] [address] WBC (Bld) [#/Vol] 6.84 10*3/uL Normal 4.00-10.60 [facility] Comment on above: Performed By: #### L [id number] ####[facility] ([facility])[address] [place] [address] [place] HEAD WO IV CONTRASTon CT HEAD WO IV CONTRAST Normal [facility] CTA CHEST W AND/OR WO IV CON TRASTon 03-23-2023 CTA CHEST W AND/OR WO IV CONTRAST Normal [facility] DSon 03-23-[address] [facility] 30on 03-22-[address] [facility] [address] [facility] [address] [facility] ANESon 03-22-[address] [facility] APTTon 03-22-2023 ACTIVATED PARTIAL THROMBOPLASTIN TIME IN PPP BY COAGULATION ASSAY 36.2 Seconds High 25.0-35.[address] [facility] Comment on above: Order Comment: Basel ine aPTT before initiating heparin infusion. Result Comment: Clin ical significance of the APTT is questionable in the presence of heparin. Performed By: #### L [id number] ####[facility] ([facility])[address] [place] [address] BASIC METABOLIC PANELon 10-0 Anion gap [Moles/Vol] 9 mmol/L Normal 7-[address] [facility] Comment on above: Performed By: #### L [id number] ####[facility] ([facility])[address] [place] [address] Calcium [Mass/Vol] 8.9 mg/dL Normal 8.6-10.3 [facility] Comment on above: Performed By: #### L [id number] ####[facility] ([facility])[address] [place] [address] Chloride [Moles/Vol] 111 mmol/L High 98-[address] [facility] Comment on above: Performed By: #### L [id number] ####[facility] ([facility])[address] [place] [address] CO2 [Moles/Vol] 22 mmol/L Normal 21-31 [facility] Comment on above: Performed By: #### L [id number] ####[facility] ([facility])[address] [place] [address] Creatinine [Mass/Vol] 0.79 mg/dL Normal 0.70-1.[address] [facility] Comment on above: Performed By: #### L [id number] ####[facility] ([facility])[address] [place] [address] GLOMERULAR FILTRATION RATE ML/MIN/1.73 SQ M.PREDICTED 96.2 mL/min/1.73m*2 Normal >60.[address] [facility] Comment on above: Result Comment: [facility]???s estimated glomerular filtration rate (eGFR) will [...] of individuals. Performed By: #### L [id number] ####[facility] ([facility])[address] [place] [address] Glucose [Mass/Vol] 112 mg/dL High 70-100 [facility] Comment on above: Performed By: #### L [id number] ####[facility] ([facility])[address] [place] [address] Potassium [Moles/Vol] 3.9 mmol/L Normal 3.5-5.[address] [facility] Comment on above: Performed By: #### L [id number] ####[facility] ([facility])[address] [place] [address] Sodium [Moles/Vol] 138 mmol/L Normal 136-145 [facility] Comment on above: Performed By: #### L [id number] ####[facility] ([facility])[address] [place] [address] Urea nitrogen [Mass/Vol] 12 mg/dL Normal 7-[address] [facility] Comment on above: Performed By: #### L [id number] ####[facility] ([facility])[address] [place] [address] UREA NITROGEN/CREATININ E (MASS RATIO) IN SER/PLAS 15.[address] [facility] Comment on above: Performed By: #### L [id number] ####[facility] ([facility])[address] [place] [address] CBCon 03-22-2023 Erythrocyte distribution width (RBC) [Ratio] 13.2 % Normal 11.5-15.[address] [facility] Comment on above: Performed By: #### L [id number] ####[facility] ([facility])[address] [place] [address] ERYTHROCYTE MEAN CORPUSCULAR HEMOGLOBIN CONCENTRATION (G/DL) BY AUTOMATED 33.7 g/dL Normal 32.0-35.[address] [facility] Comment on above: Performed By: #### L [id number] ####[facility] ([facility])[address] [place] [address] Hematocrit (Bld) [Volume fraction] 40.3 % Normal 39.0-55.[address] [facility] Comment on above: Performed By: #### L [id number] ####[facility] ([facility])[address] [place] [address] Hemoglobin (Bld) [Mass/Vol] 13.6 g/dL Normal 13.0-17.[address] [facility] Comment on above: Performed By: #### L [id number] ####[facility] ([facility])[address] [place] [address] MCH (RBC) [Entitic mass] 30.5 pg Normal 27.0-33.[address] [facility] Comment on above: Performed By: #### L [id number] ####[facility] ([facility])[address] [place] [address] MCV (RBC) [Entitic vol] 90.4 fL Normal 82.0-98.[address] [facility] Comment on above: Performed By: #### L [id number] ####[facility] ([facility])[address] [place] [address] PLATELETS (10*3/UL) IN BLOOD AUTOMATED COUNT 241 10*3/uL Normal 150-[address] [facility] Comment on above: Performed By: #### L [id number] ####[facility] ([facility])[address] [place] [address] RBC (Bld) [#/Vol] 4.46 10*6/uL Normal 4.20-5.70 [facility] Comment on above: Performed By: #### L [id number] ####[facility] ([facility])[address] [place] [address] WBC (Bld) [#/Vol] 6.03 10*3/uL Normal 4.00-10.60 [facility] Comment on above: Performed By: #### L [id number] ####[facility] ([facility])[address] [place] [address] CONSULTon 03-22-[address] [facility] CONSULT Normal [facility] CT CHEST WO IV CONTRASTon CT CHEST WO IV CONTRAST Normal [facility] HEMOGLOBIN A1Con 03-22-2023 Glucose [Mass/Vol] 126 mg/dL Normal [facility] Comment on above: Performed By: #### L [id number] ####[facility] ([facility])[address] [place] [address] HbA1c (Bld) [Mass fraction] 6.0 % Normal 4.0-6.[address] [facility] Comment on above: Performed By: #### L [id number] ####[facility] ([facility])[address] [place] [address] HPon 03-22-2023 HP H&P reviewed. The laurie putnam was examined and there are no changes to the H&P. Will proceed with coronary angiogram for chest pain and elevated high sensitivity troponin. Normal [facility] LIPID PANELon 03-22-2023 CHOL/HDL 4.9 mg/dL Normal [facility] Comment on above: Performed By: #### L [id number] ####[facility] ([facility])[address] [place] [address] Cholesterol [Mass/Vol] 138 mg/dL Normal 120-[address] [facility] Comment on above: Performed By: #### L [id number] ####[facility] ([facility])[address] [place] [address] Magnesium [Mass/Vol] 107 mg/dL Normal 40-[address] [facility] Comment on above: Result Comment: TRIG LYCERIDE REFERENCE RANGE:20 YEARS AND OLDER CARDIOVASCULAR RISKLESS THAN 150 mg/dL LOW [id number] TO 199 mg/dL BORDERLINE [id number] mg/dL AND GREATER HIGH RISK Performed By: #### L [id number] ####[facility] ([facility])[address] [place] [address] Magnesium [Mass/Vol] 89 mg/dL Normal 0-[address] [facility] Comment on above: Performed By: #### L [id number] ####[facility] ([facility])[address] [place] [address] Magnesium [Mass/Vol] 28 mg/dL Normal 23-[address] [facility] Comment on above: Performed By: #### L [id number] ####[facility] ([facility])[address] [place] [address] NON HDL CHOL. (LDL+VLDL) [address] [facility] Comment on above: Performed By: #### L [id number] ####[facility] ([facility])[address] [place] [address] TOTAL VLDL-C 21 mg/dL Normal 0-[address] [facility] Comment on above: Performed By: #### L [id number] ####[facility] ([facility])[address] [place] [address] MRSA/MSSA DNA NASALon 2022 MRSA DNA Negative Normal Negative [facility] Comment on above: Order Comment: Testi [...] preclude nasal colonization. Performed By: #### L [id number] ####[facility] ([facility])[address] [place] [address] MSSA DNA Negative Normal Negative [facility] Comment on above: Order Comment: Testi [...] preclude nasal colonization. Performed By: #### L [id number] ####[facility] ([facility])[address] [place] [address] TROPONIN Ion 03-22-2023 Troponin I.cardiac [Mass/Vol] 0.03 ng/mL Normal 0.00-0.[address] [facility] Comment on above: Performed By: #### L [id number] ####[facility] ([facility])[address] [place] [address] Troponin I.cardiac [Mass/Vol] 0.04 ng/mL Normal 0.00-0.[address] [facility] Comment on above: Performed By: #### L [id number] ####[facility] ([facility])[address] [place] [address] TSH3 REFLEX TO FT4on 023 THYROTROPIN (MIU/L) IN SER/PLAS BY DETECTION LIMIT <= 0.05 MIU/L 2.07 mIU/L Normal 0.34-5.[address] [facility] Comment on above: Performed By: #### L [id number] ####[facility] ([facility])[address] [place] [address] URINALYSISon 03-22-2023 BILIRUBIN, TOTAL PRESENCE IN URINE Negative Normal Negative [facility] Comment on above: Performed By: #### L [id number] ####[facility] ([facility])[address] [place] [address] Clarity (U) Clear Normal Clear [facility] Comment on above: Performed By: #### L [id number] ####[facility] ([facility])[address] [place] [address] Color (U) Yellow Normal Yellow [facility] Comment on above: Performed By: #### L [id number] ####[facility] ([facility])[address] [place] [address] Glucose (U) [Mass/Vol] Negative Normal Negative [facility] Comment on above: Performed By: #### L [id number] ####[facility] ([facility])[address] [place] [address] HEMOGLOBIN PRESENCE IN URINE Small Abnormal Negative [facility] Comment on above: Performed By: #### L [id number] ####[facility] ([facility])[address] [place] [address] Ketones Ql (U) Negative Normal Negative [facility] Comment on above: Performed By: #### L [id number] ####[facility] ([facility])[address] [place] [address] LEUKOCYTE ESTERASE PRESENCE IN URINE BY TEST STRIP Negative Normal Negative [facility] Comment on above: Performed By: #### L [id number] ####[facility] ([facility])[address] [place] [address] NITRITE PRESENCE IN URINE Negative Normal Negative [facility] Comment on above: Performed By: #### L [id number] ####[facility] ([facility])[address] [place] [address] pH (U) 6.0 [pH] Normal 5.0-8.[address] [facility] Comment on above: Performed By: #### L [id number] ####[facility] ([facility])[address] [place] [address] Protein (U) [Mass/Vol] Negative Normal Negative [facility] Comment on above: Performed By: #### L [id number] ####[facility] ([facility])[address] [place] [address] Specific gravity (U) [Rel density] 1.049 High 1.015-1.[address] [facility] Comment on above: Performed By: #### L [id number] ####[facility] ([facility])[address] [place] [address] URINALYSIS MICROSCOPICon CASTS IN URINE Normal [facility] Comment on above: Performed By: #### L [id number] ####[facility] ([facility])[address] [place] [address] CRYSTALS IN URINE Normal [facility] Comment on above: Performed By: #### L [id number] ####[facility] ([facility])[address] [place] [address] RBC (#/HPF) IN URINE SEDIMENT 6-10 Abnormal [address] [facility] Comment on above: Performed By: #### L [id number] ####[facility] ([facility])[address] [place] [address] SQUAMOUS EPITHELIAL CELLS (#/HPF) IN URINE SEDIMENT Few Abnormal None Seen, Occasional [facility] Comment on above: Performed By: #### L [id number] ####[facility] ([facility])[address] [place] [address] WBC (LEUKOCYTE) (#/HPF) IN URINE SEDIMENT None Seen Normal None Seen [facility] Comment on above: Performed By: #### L [id number] ####[facility] ([facility])[address] [place] [address] 30on 03-21-[address] [facility] D-DIMER, QUANTITATIVEon 10-0 FIBRIN D-DIMER (UG/L FEU) IN PLATELET POOR PLASMA 0.36 mcg/mL FEU Normal 0.27-0.[address] [facility] Comment on above: Order Comment: D-Dim er values of less than 0.50 ug/ml (FEU) are considered to be a negative predictor of thrombosis. However, the D-Dimer result should be used in conjunction with pretest probability and should not be used alone to diagnose a thrombotic event. 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 Tests Performed Urnls Dip Stick Auto w/o Microscopy POC 514[address] Your Care Team Attending Physician - ELIZABETH [...] LINDSAY PA-C Where: [facility] Urology Office/Clinic Noteon 01-29-2023 Urology Office/Clinic Note [...] ROMERO, ELIZABETH Benedict, URL In 1 year [address] [place] [address] Additional Instructions: w/PSA Patient Education Documentation recorded [...] Protein Urine Dipstick: Negative (01/29/23 14:37:00) Specific [place] Urine Dipstick: 1.025 (01/29/23 14:37:00) Urine Appearance Urine Dipstick: Clear (01/29/23 14:37:00) Urine Color Urine Dipstick: Yellow (01/29/23 14:37:00) pH Urine Dips (more content not included)... Normal [facility] Comment on above: Result Comment: Elec [...] by: GARCIA GALLEGOS Date: 2022-08-04 17:12 Normal [facility] CT LUNG CANCER SCREENINGon 0 07-26-2022 [...] DAVID EL Date: 2022-07-26 07:42 Normal [facility] INSULINon 07-26-2022 Insulin 4.0 uIU/mL Normal 2.6-24.9 [facility] Comment on above: Performed By: #### I NSULIN #### [facility] [address] [place] [address] Dr. Rehana Martinez CBC AUTO DIFFon 07-25-2022 BASO # 0.0 103/ul Normal 0.0-0.1 [facility] Comment on above: Performed By: #### C BC #### [facility] [address] [place] [address] Dr. Rehana Martinez Basophils/100 WBC (Bld) 0.2 % Normal 0.2-2.0 [facility] Comment on above: Performed By: #### C BC #### [facility] [address] [place] [address] Dr. Rehana Martinez EO # 0.1 103/ul Normal 0.0-0.7 [facility] Comment on above: Performed By: #### C BC #### [facility] [address] [place] [address] Dr. Rehana Martinez Eosinophils/100 WBC (Bld) 0.5 % Critically low 0.9-7.0 [facility] Comment on above: Performed By: #### C BC #### [facility] [address] [place] [address] Dr. Rehana Martinez Erythrocyte distribution width (RBC) [Ratio] 13.6 % Normal 11.0-15.0 [facility] Comment on above: Performed By: #### C BC #### [facility] [address] [place] [address] Dr. Rehana Martinez Hematocrit (Bld) [Volume fraction] 45.6 % Normal 42.0-54.0 [facility] Comment on above: Performed By: #### C BC #### [facility] [address] [place] [address] Dr. Rehana Martinez Hemoglobin (Bld) [Mass/Vol] 15.1 g/dL Normal 14.0-18.0 [facility] Comment on above: Performed By: #### C BC #### [facility] [address] [place] [address] Dr. Rehana Martinez IG # 0.04 10e3/ul Critically high 0.00-0.03 [facility] Comment on above: Performed By: #### C BC #### [facility] [address] [place] [address] Dr. Rehana Martinez IG % 0.4 % Normal 0.0-0.5 [facility] Comment on above: Performed By: #### C BC #### [facility] [address] [place] [address] Dr. Rehana Martinez LYMPH # 1.7 103/ul Normal 1.2-3.8 [facility] Comment on above: Performed By: #### C BC #### [facility] [address] [place] [address] Dr. Rehana Martinez Lymphocytes/100 WBC (Bld) 17.9 % Critically low 20.5-60.0 [facility] Comment on above: Performed By: #### C BC #### [facility] [address] [place] [address] Dr. Rehana Martinez MANUAL DIFF REQ NO Normal [facility] Comment on above: Performed By: #### C BC #### [facility] [address] [place] [address] Dr. Rehana Martinez MCH (RBC) [Entitic mass] 30.8 pg Normal 25.9-34.0 [facility] Comment on above: Performed By: #### C BC #### [facility] [address] [place] [address] Dr. Rehana Martinez MCHC (RBC) [Mass/Vol] 33.1 g/dL Normal 29.9-35.2 [facility] Comment on above: Performed By: #### C BC #### [facility] [address] [place] [address] Dr. Rehana Martinez MCV (RBC) [Entitic vol] 92.9 fL Normal 80.0-94.0 [facility] Comment on above: Performed By: #### C BC #### [facility] [address] [address] [address] Rehana Martinez MONO # 1.1 103/ul Critically high 0.3-0.8 [facility] Comment on above: Performed By: #### C BC #### [facility] [address] [address] [address] Rehana Martinez Monocytes/100 WBC (Bld) 11.2 % Normal 1.7-12.0 [facility] Comment on above: Performed By: #### C BC #### [facility] [address] [address] [address] Rehana Martinez NEUT # 6.7 103/ul Critically high 1.4-6.5 [facility] Comment on above: Performed By: #### C BC #### [facility] [address] [place] [address] Dr. Rehana Martinez Neutrophils/100 WBC (Bld) 69.8 % Normal 43.0-75.0 [facility] Comment on above: Performed By: #### C BC #### [facility] [address] [place] [address] Dr. Rehana Martinez Platelet mean volume (Bld) [Entitic vol] 8.7 fL Critically low 9.5-13.5 [facility] Comment on above: Performed By: #### C BC #### [facility] [address] [place] [address] Dr. Rehana Martinez PLT 226 103/ul Normal 150-450 [facility] Comment on above: Performed By: #### C BC #### [facility] [address] [address] [address] Rehana Martinez RBC 4.91 106/ul Normal 4.70-6.10 [facility] Comment on above: Performed By: #### C BC #### [facility] [address] [address] [address] Rehana Martinez WBC 9.6 103/ul Normal 4.0-11.0 [facility] Comment on above: Performed By: #### C BC #### [facility] [address] [address] [address] Rehana Martinez FREE THYROXINE INDEX T7on FTI 3.37 Normal 1.30-4.50 [facility] Comment on above: Performed By: #### L IPID, CMP, TSH, URIC, T7 ####[facility] [address] [id number] Martinez T3U 37.0 % Normal 33.0-40.0 [facility] Comment on above: Performed By: #### L IPID, CMP, TSH, URIC, T7 ####[facility] [address] [id number]. Rehana Martinez T4 [Mass/Vol] 9.10 ug/dL Normal 4.50-12.10 [facility] Comment on above: Performed By: #### L IPID, CMP, TSH, URIC, T7 ####[facility] [address] [place] [address]Dr. Rehana Martinez GLYCOHEMOGLOBIN A1Con 2022 ADA RECOMMENDATION SEE BELOW Normal [facility] Comment on above: Result Comment: ADA RECOMMENDED LIMIT 4.0 - 6.0 ADA THERAPEUTIC TARGET < 7.0 ACTION SUGGESTED > 7.0 Performed By: #### A 1C #### [facility] [address] [address] [address] Rehana Martinez Glucose [Mass/Vol] 128 mg/dL Normal [facility] Comment on above: Performed By: #### A 1C #### [facility] [address] [address] [address] Rehana Martinez HbA1c (Bld) [Mass fraction] 6.1 % Normal 4.5-6.2 [facility] Comment on above: Performed By: #### A 1C #### [facility] [address] [place] [address] Dr. Rehana Martinez LIPID PROFILEon 07-25-2022 CHOL-HDL RATIO NORM SEE BELOW Normal [facility] Comment on above: Result Comment: 3.3 - 4.4 LOW RISK 4.4 - 7.1 AVERAGE RISK 7.1 - 11.0 MODERATE RISK >11.0 HIGH RISK Performed By: #### L IPID, CMP, TSH, URIC, T7 ####[facility] [address] [address]Dr. Rehana Martinez Cholesterol [Mass/Vol] 137 mg/dL Normal <=200 [facility] Comment on above: Performed By: #### L IPID, CMP, TSH, URIC, T7 ####[facility] [address] [id number]. Rehana Martinez Cholesterol in HDL [Mass/Vol] 44 mg/dL Normal 40-60 [facility] Comment on above: Performed By: #### L IPID, CMP, TSH, URIC, T7 ####[facility] [address] [place], [place] [address]Dr. Rehana Martinez Cholesterol in LDL [Mass/Vol] 75.6 mg/dL Normal [facility] Comment on above: Performed By: #### L IPID, CMP, TSH, URIC, T7 ####[facility] [address] [address]Dr. Rehana Martinez Cholesterol.total/ Cholesterol in HDL [Mass ratio] 3.1 {ratio} Normal [facility] Comment on above: Performed By: #### L IPID, CMP, TSH, URIC, T7 ####[facility] [address] [address]Dr. Rehana Martinez HDL NORMAL > or = 60 mg/dl - LO W CARDIOVASCULAR RISK <40 mg/dl - HIGH CARDIOVASCULAR RISK Normal [facility] Comment on above: Performed By: #### L IPID, CMP, TSH, URIC, T7 ####[facility] [address] [address]Dr. Rehana Martinez LDL CALC NORMAL SEE BELOW Normal [facility] Comment on above: Result Comment: <100 mg/dl OPTIMAL 100 - 129 mg/dl NEAR OR ABOVE OPTIMAL 130 - 159 mg/dl BORDERLINE HIGH 160 - 189 mg/dl HIGH >190 mg/dl VERY HIGH Performed By: #### L IPID, CMP, TSH, URIC, T7 ####[facility] [address] [address]Dr. Rehana Martinez Triglyceride [Mass/Vol] 87 mg/dL Normal <=150 [facility] Comment on above: Performed By: #### L IPID, CMP, TSH, URIC, T7 ####[facility] [address] [address]Dr. Rehana Martniez VLDL CALC 17.4 mg/dL Normal [facility] Comment on above: Performed By: #### L IPID, CMP, TSH, URIC, T7 ####[facility] [address] [address]Dr. Rehana Martinez PROF 14(COMP METB)on 023 Albumin [Mass/Vol] 3.3 g/dL Critically low 3.4-5.0 [facility] Comment on above: Performed By: #### L IPID, CMP, TSH, URIC, T7 ####[facility] [address] [place] [address] [address]Dr. Rehana Martinez Albumin/Globulin [Mass ratio] 0.9 {ratio} Normal [facility] Comment on above: Performed By: #### L IPID, CMP, TSH, URIC, T7 ####[facility] [address] [place] [address] [address]Dr. Rehana Martinez ALP [Catalytic activity/Vol] 105 U/L Normal 46-116 [facility] Comment on above: Performed By: #### L IPID, CMP, TSH, URIC, T7 ####[facility] [address] [address]Dr. Rehana Martinez ALT [Catalytic activity/Vol] 16 U/L Normal 16-63 [facility] Comment on above: Performed By: #### L IPID, CMP, TSH, URIC, T7 ####[facility] [address] [place] [address] [address]Dr. Rehana Martinez Anion gap [Moles/Vol] 11.8 mmol/L Normal [facility] Comment on above: Performed By: #### L IPID, CMP, TSH, URIC, T7 ####[facility] [address] [address]Dr. Rehana Martinez AST [Catalytic activity/Vol] 16 U/L Normal 15-37 [facility] Comment on above: Performed By: #### L IPID, CMP, TSH, URIC, T7 ####[facility] [address] [place] [address]Dr. Reahna Martinez Bilirubin [Mass/Vol] 0.6 mg/dL Normal 0.2-1.0 [facility] Comment on above: Performed By: #### L IPID, CMP, TSH, URIC, T7 ####[facility] [address] [place], [place] [address]Dr. Rehana Martinez Calcium [Mass/Vol] 9.1 mg/dL Normal 8.5-10.1 [facility] Comment on above: Performed By: #### L IPID, CMP, TSH, URIC, T7 ####[facility] [address] [place], [place] [address]Dr. Rehana Martinez Chloride [Moles/Vol] 103 mmol/L Normal 98-107 [facility] Comment on above: Performed By: #### L IPID, CMP, TSH, URIC, T7 ####[facility] [address] [place], [place] [address]Dr. Rehana Martinez CO2 [Moles/Vol] 26.0 mmol/L Normal 21.0-32.0 [facility] Comment on above: Performed By: #### L IPID, CMP, TSH, URIC, T7 ####[facility] [address] [place], [place] [address]Dr. Rehana Martinez Creatinine [Mass/Vol] 0.94 mg/dL Normal 0.70-1.30 [facility] Comment on above: Performed By: #### L IPID, CMP, TSH, URIC, T7 ####[facility] [address] [place], [place] [address]Dr. Rehana Martinez EGFR-AF BULGARIAN >60 Normal >=60 [facility] Comment on above: Performed By: #### L IPID, CMP, TSH, URIC, T7 ####[facility] [address] [place], [place] [address]Dr. Rehana Martinez EGFR-NON AF BULGARIAN >60 Normal >=60 [facility] Comment on above: Performed By: #### L IPID, CMP, TSH, URIC, T7 ####[facility] [address] [address]Dr. eRhana Martinez Globulin (S) [Mass/Vol] 3.8 g/dL Normal [facility] Comment on above: Performed By: #### L IPID, CMP, TSH, URIC, T7 ####[facility] [address] [address]Dr. Rehana Martinez Glucose [Mass/Vol] 109 mg/dL Critically high 74-106 [facility] Comment on above: Performed By: #### L IPID, CMP, TSH, URIC, T7 ####[facility] [address] [place], [place] [address]Dr. Rehana Martinez Potassium [Moles/Vol] 3.8 mmol/L Normal 3.5-5.1 [facility] Comment on above: Performed By: #### L IPID, CMP, TSH, URIC, T7 ####[facility] [address] [place], [place] [address]Dr. Rehana Martinez Protein [Mass/Vol] 7.1 g/dL Normal 6.4-8.2 [facility] Comment on above: Performed By: #### L IPID, CMP, TSH, URIC, T7 ####[facility] [address] [address]Dr. Rehana Martinez Sodium [Moles/Vol] 137 mmol/L Normal 136-145 [facility] Comment on above: Performed By: #### L IPID, CMP, TSH, URIC, T7 ####[facility] [id number] [place] [address]Dr. Rehana Martinez Urea nitrogen [Mass/Vol] 17.0 mg/dL Normal 7.0-18.0 [facility] Comment on above: Performed By: #### L IPID, CMP, TSH, URIC, T7 ####[facility] [id number] [place] [address]Dr. Rehana Martinez Urea nitrogen/Creatinin e [Mass ratio] 18.1 mg/mg Normal [facility] Comment on above: Performed By: #### L IPID, CMP, TSH, URIC, T7 ####[facility] [address] [place], [place] [address]Jx. Rehana Martinez TSHon 07-25-2022 TSH 1.619 uIU/mL Normal 0.358-3.740 [facility] Comment on above: Performed By: #### L IPID, CMP, TSH, URIC, T7 ####[facility] [address] [place], [place] [address]Mj. Rehana Martinez URIC ACID SERUMon 07-25-2022 Urate [Mass/Vol] 5.7 mg/dL Normal 3.5-7.2 [facility] Comment on above: Performed By: #### L IPID, CMP, TSH, URIC, T7 #### [facility] [address] [place], [place] [address] Dr. Rehana Martinez PSA, FREE AND TOTAL RATIOon 03-13-2022 % Free PSA 15.5 % Normal [facility] Comment on above: Result Comment: The [...] men. Performed By: #### P SAFREE #### [facility] [address], [place] [address] Dr. Rehana Martinez Prostate specific Ag [Mass/Vol] 4.9 ng/mL Critically high 0.0-4.0 [facility] Comment on above: Result Comment: Roch ned ECLIA methodology. . According to the [facility] [...] disease. Performed By: #### P SAFREE #### [facility] [address] [place] [address] Dr. Rehana Martinez PSA, Free 0.76 ng/mL Normal N/A [facility] Comment on above: Result Comment: Arnoldo ALEJANDRO methodology. Performed By: #### P SAFREE #### [facility] [address] [place] [address] Dr. Rehana Martinez CREATININEon 12-14-2021 Creatinine [Mass/Vol] 1.01 mg/dL Normal 0.70-1.30 [facility] Comment on above: Performed By: #### C MAXINE #### [facility] [address] [place] [address] Dr. Rehana Martinez EGFR-AF BULGARIAN >60 Normal >=60 [facility] Comment on above: Performed By: #### C MAXINE #### [facility] [address] [place] [address] Dr. Rehana Martinez EGFR-NON AF BULGARIAN >60 Normal >=60 [facility] Comment on above: Performed By: #### C MAXINE #### [facility] [address] [place] [address] ABD/PELV W CONon [...] by: BRANDIE RUDD Date: 2021-12-14 11:36 Normal [facility] Vital Signs Date Time Vital Sign Value Performing Clinician Yunier nunez 02-13-2024 12:53-0400 Blood Pressure Location ELIZABETHDIANE LINDSAY [facility] 02-13-2024 12:53-0400 Body temperature 98.6 [degF] ELIZABETH LINDSAY [facility] 02-13-2024 12:53-0400 Diastolic blood pressure 74 mm[Hg] ELIZABETH LINDSAY [facility] 02-13-2024 12:53-0400 Heart rate 63 /min ELIZABETHCARSON LINDSAY [facility] 02-13-2024 12:53-0400 Respiratory rate 16 /min ELIZABETH LINDSAY [facility] 02-13-2024 12:53-0400 Systolic blood pressure 138 mm[Hg] ELIZABETH DAKSHA [facility] 03-27-2022 10:11-0400 Blood Pressure Location Casper RAUSCH [facility] 03-27-2022 10:11-0400 Diastolic blood pressure 57 mm[Hg] Casper RAUSCH [facility] 03-27-2022 10:11-0400 Heart rate 57 /min Casper RICE [facility] 03-27-2022 10:11-0400 Respiratory rate 16 /min Casper RICE [facility] 03-27-2022 10:11-0400 Systolic blood pressure 154 mm[Hg] Casper RICE [facility] 12-05-2021 08:16-0400 Blood Pressure Location Monica Mondragon Jr. [facility] 12-05-2021 08:16-0400 Diastolic blood pressure 84 mm[Hg] Monica Mondragon Jr. [facility] 12-05-2021 08:16-0400 Heart rate 75 /min Monica Mondragon Jr. [facility] 12-05-2021 08:16-0400 Systolic blood pressure 118 mm[Hg] Monica Mondragon Jr. [facility] Encounters Encounter Date Encounter Type Care Provider Facility Start: 02-18-2024 End: 02-18-2024 ambulatory EHAB [facility] Start: 02-13-2024 ambulatory ELIZABETH Salazari ty:PRICILA Self Start: 02-13-2024 End: 02-13-2024 Patient encounter procedure ELIZABETH LINDSAY [facility] Start: 02-03-2024 Evaluation and manag ement of inpatient [facility] Start: 02-01-2024 Evaluation and manag ement of inpatient [facility] Start: 02-01-2024 Evaluation and manag ement of inpatient [facility] Start: 02-01-2024 Evaluation and manag ement of inpatient [facility] Start: 01-31-2024 Evaluation and manag ement of inpatient [facility] Start: 01-31-2024 Evaluation and manag ement of inpatient [facility] Start: 01-31-2024 Evaluation and manag ement of inpatient [facility] Start: 01-30-2024 End: 02-03-2024 Evaluation and management of inpatient [facility] Start: 11-07-2023 End: 11-07-[address] [facility] Start: 10-03-2023 ambulatory [facility] Start: 10-02-2023 End: 10-02-2023 ambulatory MAIDA [facility] Start: 09-26-2023 End: 09-26-2023 ambulatory [facility] Start: 09-04-2023 Evaluation and manag ement of inpatient MAYELIN WOLFE [facility] Start: 09-04-2023 Evaluation and manag ement of inpatient WILIAM BRAGG [facility] [place] [facility] Start: 09-03-2023 Evaluation and manag ement of inpatient WILIAM BRAGG [facility] [place] [facility] Start: 09-01-2023 Evaluation and manag ement of inpatient JOHN SD [facility] Start: 09-01-2023 End: 09-04-2023 Evaluation and management of inpatient MANESH BRAGG GANGWANI [facility] Start: 08-14-2023 End: 08-14-2023 ambulatory MAIDA SIERRA [facility] Start: 07-18-2023 End: 07-18-2023 ambulatory MAYELIN WOLFE [facility] Start: 07-08-2023 Evaluation and manag ement of inpatient DOMENIC [facility] Start: 07-06-2023 Evaluation and manag ement of inpatient MARY [facility] Start: 07-06-2023 Evaluation and manag ement of inpatient DOMENIC [facility] Start: 07-05-2023 Evaluation and manag ement of inpatient [facility] Start: 07-05-2023 End: 07-09-2023 Evaluation and management of inpatient DOMENIC [facility] Start: 05-16-2023 ambulatory JUANITA [facility] Start: 05-14-2023 End: 05-14-2023 ambulatory [address]INA [address]RERA [facility] Start: 05-06-2023 Evaluation and manag ement of inpatient ELINA KISHAN [facility] Start: 05-03-2023 End: 05-03-2023 ambulatory [facility] Start: 05-01-2023 Evaluation and manag ement of inpatient [facility] Start: 04-30-2023 Evaluation and manag ement of inpatient [facility] Start: 04-30-2023 Evaluation and manag ement of inpatient [facility] Start: 04-30-2023 Evaluation and manag ement of inpatient [facility] Start: 04-29-2023 Evaluation and manag ement of inpatient [facility] Start: 04-27-2023 Evaluation and manag ement of inpatient [facility] Start: 04-26-2023 Evaluation and manag ement of inpatient [facility] Start: 04-25-2023 Evaluation and manag ement of inpatient [facility] Start: 04-25-2023 Evaluation and manag ement of inpatient KAREY SAWANT [facility] Start: 04-24-2023 Evaluation and manag ement of inpatient [facility] Start: 04-24-2023 Evaluation and manag ement of inpatient [facility] Start: 04-23-2023 [facility]: 04-23-2023 [facility] Start: 04-23-2023 End: 04-23-2023 Evaluation and management of inpatient [facility] Start: 04-23-2023 [facility]: 04-23-[facility]23 [facility] Start: 04-22-2023 Evaluation and manag ement of inpatient [facility] Start: 04-22-2023 Evaluation and manag ement of inpatient [facility] Start: 04-22-2023 Evaluation and manag ement of inpatient [facility] Start: 04-22-2023 End: 05-01-2023 Evaluation and management of inpatient [facility] Start: 04-09-2023 End: 04-09-2023 Encounter for preprocedural cardiovascular examination [facility] Start: 04-09-2023 End: 04-09-2023 ambulatory [facility] Start: 04-04-2023 ambulatory [facility] Start: 03-23-2023 [facility]: 03-23-2023 Evaluation and manag ement of inpatient KAREY KAUFMANKI [facility] Start: 03-22-2023 [facility]: 03-22-[facility]23 [facility] 03-22-2023 Evaluation and manag ement of inpatient ROD[facility] Start: 03-21-2023 End: 03-23-2023 Evaluation and management of inpatient DOMENIC NGUYEN [facility] Start: 01-29-2023 End: 01-29-2023 ambulatory ELIZABETH LINDSAY Facility:[facility] Start: 01-29-2023 End: 01-29-2023 Patient encounter procedure ELIZABETH LINDSAY [facility] Start: 08-04-2022 End: 08-05-[address] TYSON JAQUEZ . Facility:[facility] Start: 07-25-2022 End: 07-26-[address] TYSON JAQUEZ . Facility:[facility] Start: 03-27-2022 End: 03-27-2022 Patient encounter procedure Casper RAUSCH [facility] Start: 03-21-2022 End: 03-21-2022 Patient encounter procedure Casper RAUSCH [facility] Start: 03-12-2022 End: 03-13-[address] CASPER RAUSCH Facility:[facility] Start: 02-05-2022 End: 02-05-2022 Patient encounter procedure Monica Mondragon Jr. [facility] Start: 12-14-2021 End: 12-15-2021 ambulatory MONICA MONDRAGON JR Facility:[facility] Start: 12-05-2021 End: 12-05-2021 Patient encounter procedure Monica Mondragon Jr. [facility] Procedures Date Procedure Procedure Detail Performing Clinician Start: 02-18-2024 Follow-up visit MICHAEL TERRELL PATRICK Start: 01-31-2024 Placement of stent i n cardiac conduit ELIZABETH DAKSHA Start: 10-02-2023 Follow-up visit MICHAEL TERRELL PATRICK Start: 08-14-2023 Follow-up visit MICHAEL IE PATRICK Start: 05-16-2023 Follow-up visit MICHAEL IE PATRICK Start: 05-14-2023 Follow-up visit MICHAEL TERRELL PATRICK Start: 04-04-2023 Follow-up visit MICHAEL TERRELL PATRICK Start: 07-25-[address] FABIOLA JAQUEZ . Comment on above: Performed By: #### P SASC #### [facility] [address], [place] [address] Dr. Rehana Martinez Start: 03-21-2022 Cystoscopy ELIZABETH JOHNSTON Start: 12-14-[address] FABIOLA JAQUEZ . Comment on above: Performed By: #### P SAD ####[facility] [address] [place], [place] [address]VvDr. Rehana Martinez Start: 01-23-2018 Cystoscopy Monica stephen Jr. Comment on above: 07/22/09, 01/23/18 07/22/09, 01/23/18 Immunizations Immunization Date Immunization Notes Care Provider Fa cilimagdi 06-20-2021 SARS-CoV-2 (COVID-19 ) mRNA BNT-162b2 john RAUSCH [facility] 09-13-2020 SARS-CoV-2 (COVID-19 ) Ad26 vaccine, recombinant Monica Mondragon Jr. [facility] 08-22-2020 SARS-CoV-2 (COVID-19 ) Ad26 vaccine, recombinant Monica Giancarlo Campbell [facility] NEGATED: Highlighted row has not occurred!12-05-2021 influenza virus vaccine, unspecified formulation Monica Giancarlo Campbell [facility] Payers Date Payer Category Payer Medicare [id number] 1960 Unknown [id number] 1955 Unknown [id number] 2.16.84 [id number] 1955 Unknown [id number] [id number] [id number] 1955 Unknown [id number] 2.16.84 [id number] 1955 Unknown [id number] 2.16.84 [id number] 1955 Unknown [id number] 2.16.8 [id number] 1955 Unknown [id number] 2.16.8 [id number] Social History Date Type Detail Facility Start: 12-05-2021 End: 02-13-2024 Tobacco smoking status Heavy tobacco smoker (finding) [facility] Sex Assigned At Male [facility] Functional Status Date Assessment Result Facility 02-13-2024 Functional Status N/A [facility] 01-29-2023 Functional Status N/A [facility] 03-27-2022 Functional Status N/A [facility] 03-15-2022 Functional Status N/A [facility] 12-05-2021 Functional Status N/A [facility] Clinical Notes 05-23-2021 to 02-18-2024 LaboratoryLaboratoryLaboratoryLaboratory Note Date & Type Note Facility 02-18-2024 Note [facility] 02-13-2024 Hospital Discharge instructions Patient Education 02/13/2024 13:35:03 Kegel Exercises Kegel Exercises Kegel exercises can help strengthen your pelvic floor muscles. The pelvic floor is a group of muscles that support your rectum, small intestine, and bladder. In females, pelvic floor muscles also help support the uterus. These muscles help you control the flow of urine and stool (feces). Kegel exercises are painless and simple. They do not require any equipment. Your provider may suggest Kegel exercises to: Improve bladder and bowel control. Improve sexual response. Improve weak pelvic floor muscles after surgery to remove the uterus (hysterectomy) or after , in females. Improve weak pelvic floor muscles after prostate gland removal or surgery, in males. Kegel exercises involve squeezing your pelvic floor muscles. These are the same muscles you squeeze when you try to stop the flow of urine or keep from passing gas. The exercises can be done while sitting, standing, or lying down, but it is best to vary your position. Ask your health care provider which exercises are safe for you. Do exercises exactly as told by your health care provider and adjust them as directed. Do not begin these exercises until told by your health care provider. Exercises How to do Kegel exercises: 1.Squeeze your pelvic floor muscles tight. You should feel a tight lift in your rectal area. If you are a female, you should also feel a tightness in your vaginal area. Keep your stomach, buttocks, and legs relaxed. 2.Hold the muscles tight for up to 10 seconds. 3.Breathe normally. 4.Relax your muscles for up to 10 seconds. 5.Repeat as told by your health care provider. Repeat this exercise daily as told by your health care provider. Continue to do this exercise for at least 4 6 weeks, or for as long as told by your health care provider. You may be referred to a physical therapist who can help you learn more about how to do Kegel exercises. Depending on your condition, your health care provider may recommend: Varying how long you squeeze your muscles. Doing several sets of exercises every day. Doing exercises for several weeks. Making Kegel exercises a part of your regular exercise routine. This information is not intended to replace advice given to you by your health care provider. Make sure you discuss any questions you have with your health care provider. Document Revised: 10/12/2021 Document Reviewed: 10/12/2021 [employer] Patient Education 2022 [employer] Follow Up Care 01/29/2023 14:57:27 With:DAKSHA ROMERO, ELIZABETH Benedict, URL Address: [address] [place] [phone] When: Unknown [facility] 02-13-2024 Evaluation + Plan note Diagnostic Tests PendingPSA Free & Total 02/13/24 [facility] 02-03-2024 Note [facility] 02-03-2024 Note Discharge plan dafne chirages to be home when medically cleared. Will remain available for any social work needs. [facility] 02-03-2024 Note [facility] 02-03-2024 Note [facility] 02-02-2024 Note [facility] 02-02-2024 Note [facility] 02-01-2024 Note [facility] 01-31-2024 Note [facility] 01-31-2024 Note [facility] 01-30-2024 Note [facility] 11-07-2023 Note [facility] 11-07-2023 Note [facility] 10-03-2023 Note [facility] 10-02-2023 Note [facility] 09-04-2023 Note [facility] 09-04-2023 Note [facility] 09-03-2023 Note [facility] 09-03-2023 Note [facility] 09-03-2023 Note [facility] 09-02-2023 Note [facility] 09-02-2023 Note [facility] 09-02-2023 Note [facility] 08-14-2023 Note [facility] 08-01-2023 Note [facility] 07-30-2023 Note [facility] 07-18-2023 Note [facility] 07-18-2023 Note [facility] 07-18-2023 Note Increase imdur to 60 mg daily, decrease coreg back to 3.125 mg bid in light of bradycardia and somewhat labile B/P. [facility] 07-18-2023 Note [facility] 07-18-2023 Note [facility] 07-09-2023 Note [facility] 07-09-2023 Note [facility] 07-09-2023 Note [facility] 07-08-2023 Note [facility] 07-07-2023 Note [facility] 07-07-2023 Note [facility] 07-06-2023 Note [facility] 07-02-[address] chest wo [facility] 05-16-2023 Note [facility] 05-16-2023 Note [facility] 05-16-2023 Note [facility] 05-14-2023 Note [facility] 05-14-2023 Note [facility] 05-01-2023 Note Patient provided a c opy of the AVS. All questions answered. Patient discharged with belongings and taken down with transport via wheelchair and family at bedside. [facility] 05-01-2023 Note [facility] 05-01-2023 Note [facility] 05-01-2023 Note [facility] 05-01-2023 Note [facility] 04-30-2023 Note [facility] 04-30-2023 Note [facility] 04-29-2023 Note [facility] 04-29-2023 Note [facility] 04-29-2023 Note [facility] 04-29-2023 Note [facility] 04-28-2023 Note [facility] 04-28-2023 Note [facility] 04-27-2023 Note [facility] 04-27-2023 Note [facility] 04-27-2023 Note [facility] 04-27-2023 Note [facility] 04-26-2023 Note [facility] 04-26-2023 Note [facility] 04-26-2023 Note [facility] 04-26-2023 Note [facility] 04-26-2023 Note [facility] 04-26-2023 Note [facility] 04-25-2023 Note [facility] 04-25-2023 Note Attempted to call wi fe to get information and give updates. Was unable to reach her, will continue to try. [facility] 04-25-2023 Note [facility] 04-25-2023 Note [facility] 04-25-2023 Note [facility] 04-24-2023 Note Patient is still on vent support. Per RN was off and placed back on yesterday. Consult for s/p CABG. SW to follow. [facility] 04-24-2023 Note [facility] 04-24-2023 Note Physical Therapy Patient intubated/sedated at this time. PT will check back and follow as appropriate. Stella Bustos, CHANTEL [facility] 04-24-2023 Note [facility] 04-24-2023 Note Occupational Therapy Cancel Note Reason: Patient intubated and sedated at this time. OT will continue to follow and will re-attempt as able. Time in: 0808 Check no charge Thelma CAMEJO, OTR/L, CLT [facility] 04-24-2023 Note [facility] 04-23-2023 Note [facility] 04-23-2023 Note [facility] 04-23-2023 Note [facility] 04-23-2023 Note [facility] 04-23-2023 Note [facility] 04-23-2023 Note [facility] 04-22-2023 Note TRIGGER: PRESSURE 1:[address] [facility] 04-22-2023 Note TRIGGER: PRESSURE 1:[address] [facility] 04-22-2023 Note INSERTED WITHOUT COM PLICATION USING STERILE TECHNIQUE; DRAINING CLEAR YELLOW URINE; TO BE MONITORED BY ANESTHESIA FOR DURATION OF THE CASE [facility] 04-22-2023 Note [facility] 04-22-2023 Note [facility] 04-22-2023 Note [facility] 04-09-2023 Note [facility] 04-09-2023 Note [facility] 04-04-2023 Note [facility] 04-01-2023 Note [facility] 03-23-2023 Note [facility] 03-23-2023 Note [facility] 03-22-2023 Note [facility] 03-22-2023 Note [facility] 03-27-2022 Hospital Discharge instructions Patient Education 03/27/2022 [...] urethra. Follow these instructions at home: Take piix-mlr-adpnqmi and prescription medicines only as told by [...] 06/03/2006 Document Revised: 04/28/2019 Document Reviewed: 07/08/2017 [employer] Patient Education [employer] Follow Up Care 03/21/2022 11:25:28 With:Giancarlo Campbell MD, Monica Menendez, URO Address: [facility] [address], [place] [address]- When: Unknown [facility] 02-27-2022 Hospital Discharge instructions Follow Up Care 02/27/2022 13:20:12 With:Casper RAUSCH Address: [address] [place] [phone]- Business (1) When:5 to 7 days With:Casper RAUSCH Address: [address] [place] [phone]- Business (1) When: Unknown [facility] 12-05-2021 Hospital Discharge instructions Patient [...] Follow these instructions at home: Medicines Take rhzn-rvj-[id number] and prescription medicines only as told by [...] or the blood stops without treatment. Take cyfo-zjy-ylikmmu and prescription medicines only as told by your health care provider. Drink enough fluid to keep your urine clear or pale yellow. This information is not intended to replace advice given to you by your health care provider. Make sure you discuss any questions you have with your health care provider. Document Released: 06/03/2006 Document Revised: 10/28/2019 Document Reviewed: 07/06/2017 [employer] Patient Education 2020 [employer] Follow Up Care 05/30/2021 15:33:59 With:Giancarlo Campbell MD, Monica Menendez, URO Address: [facility] [address] [place] [address]- [phone] When: Unknown [facility] 05-23-2021 Hospital Discharge instructions Follow Up Care 05/23/2021 11:27:47 With:ELIZABETH LINDSAY PA-C, URL Address: [address] [facility] [place] [address] When:Within 1 Year(s) Comments:w/PSA [facility] Evaluation + Plan note Future Appointments Appointment Date:05/22/2022 11:00:00 AM Scheduled Provider:Monica Mondragon Jr., MD Location:[facility] Appointment Type:URO Office Visit Diagnostic Tests PendingPSA Total 12/05/21 Future Scheduled TestsPSA Free & Total 05/30/21 [facility] Evaluation + Plan note Future Appointments Appointment Date:05/22/2022 11:00:00 AM Scheduled Provider:Monica Mondragon Jr., MD Location:[facility] Appointment Type:URO Office Visit Future Scheduled TestsPSA Free & Total 05/30/21 [facility] Evaluation + Plan note Future Appointments Appointment Date:03/27/2022 09:45:00 AM Scheduled Provider:Casper RAUSCH MD Location: Appointment Type:URO Office Visit Appointment Date:05/22/2022 11:00:00 AM Scheduled Provider:Monica Mondragon Jr., MD Location:[facility] Appointment Type:URO Office Visit Diagnostic Tests PendingUroVysion Fish and Urine Cyto ([facility]) 03/21/22 Future Scheduled TestsPSA Free & Total 05/30/21 [facility] Evaluation + Plan note Future Appointments Appointment Date:09/18/2022 09:15:00 AM Scheduled Provider:Monica Mondragon Jr., MD Location:[facility] Appointment Type:URO Office Visit Diagnostic Tests PendingPSA Free & Total 06/17/22 Future Scheduled TestsPSA Free & Total 05/30/21 [facility] Evaluation + Plan note Future Appointments Appointment Date:02/11/2024 08:30:00 AM Scheduled Provider:ELIZABETH LINDSAY PA-C Location:[facility] Appointment Type:URO Office Visit Diagnostic Tests PendingPSA Total 01/29/23 [facility] Hospital course Narrative No data available for this section [facility] Hospital Discharge instructions No data available for this section [facility] Progress note No data available for this section [facility] Summary Purpose Family History No Family History Records FoundNo Family History Records Found No data available for this section No Family History Records Found Advance Directives No Advanced Directives Records FoundNo Advanced Directives Records FoundNo Advanced Directives Records Found Additional Source Comments Care Team (unrecognized sect ion and content) Personnel Name: Tyson Jaquez MD Address: [address] [place] [address] Personnel Name: Tyson Jaquez MD Address: [address] [place] [address] [place], [place] [address] Personnel Name: Tyson Jaquez MD Address: Address: [address] [place] [address] [place] [address]- Personnel Name: Gisele MONTES DE OCA Tyson Address: Address: [address] [place] [address] Personnel Name: Tyson Jaquez MD Address: Address: [address] [place], [place] [address] Personnel Name: Tyson Jaquez MD Address: Address: [address] [place], [place] [address] (unrecognized sect ion and content) No Status Records FoundNo Status Records FoundNo Status Records Found INFORMATION SOURCE (unrecogn ized section and content) DATE CREATED AUTHOR 08/10/2022 [facility] DATE CREATED AUTHOR AUTHOR'S ORGANIZ ATION 01/24/2024 [facility] DATE CREATED AUTHOR AUTHOR'S ORGANIZ ATION 02/19/2024 [facility] FOR RECORDS PERTAINING TO PATIENTS WHO ARE [...] BE BASED ON THE PRIMARY CLINICAL RECORDS. [employer] provides no warranty or guarantee of the accuracy or completeness of information in this document.
--- NOTE | 2024-06-28 00:49 | ECG_ITS ---
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
--- NOTE | 2024-06-28 00:49 | XR_ITS ---
[address] [address] Patient Name: ESEQUIEL ORTIZ MRN: [id number] date: 1955 Sex: M Assigned Patient Location: ER Current Patient Location: ED.MAIN Accession/Order Number: [id number] Exam Date: 06/28/2024 00:55 Report Date: 06/28/2024 02:21 At the request of: JUSTIN MILES Procedure: XR chest 1V EXAMINATION: XR chest 1V, , 06/28/2024 12:55 AM EST INDICATION: Chest pain HISTORY: Ordering Provider Reason for Exam: Chest pain Technologist Note: Additional: COMPARISON: None. TECHNIQUE: Chest x-ray: One view. FINDINGS: Increased markings are seen in the infrahilar right lower lobe, which may represent peribronchial thickening and bronchiectatic changes. However, peribronchial infiltrates cannot be excluded. Please correlate clinically. No significant pleural effusion or obvious pneumothorax is seen. Patient is postmedian sternotomy. Heart is normal in size. Bony thorax is unremarkable. XR/XR chest 1V IMPRESSION: Increased markings are seen in the infrahilar right lower lobe, which may represent peribronchial thickening and bronchiectatic changes. However, peribronchial infiltrates cannot be excluded. Please correlate clinically. Electronically authenticated by: NOE ZARATE Date: 06/28/2024 02:21
[2024-06-28 00:54] LABS: Basophils Percent Auto 0.4 % (0.2-2.0); Eosinophils Absolute Auto 0.1 10^3/uL (0.0-0.7); Eosinophils Percent Auto 1.3 % (0.9-7.0); Hematocrit 29.3 % (42.0-54.0); Hemoglobin 9.4 g/dL (14.0-18.0); Immature Granulocytes Abs Auto 0.03 10^3/uL (0.00-0.03); Immature Granulocytes Pct Auto 0.3 % (0.0-0.5); Lymphocytes Absolute Auto 2.2 10^3/uL (1.2-3.8); Lymphocytes Percent Auto 20.8 % (20.5-60.0); Mean Corpuscular HGB Conc 32.1 g/dL (29.9-35.2); Mean Corpuscular Hemoglobin 28.5 pg (25.9-34.0); Mean Corpuscular Volume 88.8 fL (80.0-94.0); Mean Platelet Volume 10.3 fL (9.5-13.5); Monocytes Absolute Auto 1.1 10^3/uL (0.3-0.8); Monocytes Percent Auto 9.7 % (1.7-12.0); Neutrophils Absolute Auto 7.3 10^3/uL (1.4-6.5); Neutrophils Percent Auto 67.5 % (43.0-75.0); Platelet Count 332 10^3/uL (150-450); Red Cell Distribution Width 14.9 % (11.0-15.0); White Blood Count 10.8 10^3/uL (4.0-11.0)
[2024-06-28 01:04] LABS: Anion Gap 20.9
[2024-06-28] MEDS: MORPHINE SULFATE 2 MG/ML SYRINGE IV (01:05)
[2024-06-28 01:12] LABS: Alanine Aminotransferase 16 U/L (16-63); Albumin Globulin Ratio 0.9; Albumin Level 3.5 g/dL (3.4-5.0); Alkaline Phosphatase 133 U/L (46-116); Aspartate Amino Transferase 39 U/L (15-37); BUN Creatinine Ratio 13.5; Bilirubin Total 0.4 mg/dL (0.2-1.0); Calcium 8.7 mg/dL (8.5-10.1); Chloride 104 mmol/L (98-107); Estimated GFR (African America 57 (>=60 mL/min/1.73m^2); Estimated GFR (Non-African Ame 47 (>=60 mL/min/1.73m^2); Globulin 3.8 g/dL; Glucose 203 mg/dL (74-106); Potassium 3.9 mmol/L (3.5-5.1); Sodium 140 mmol/L (136-145); Total Protein 7.3 g/dL (6.4-8.2)
[2024-06-28 01:14] LABS: Troponin I High Sensitivity 3037.3 pg/mL (4.0-76.1)
--- NOTE | 2024-06-28 01:38 | ED_ITS ---
HPI - Chest Pain General Chief Complaint: Chest Pain Stated Complaint: chest pain Time Seen by Provider: 06/28/24 00:24 Source: patient Mode of arrival: ambulance Limitations: no limitations History of Present Illness HPI narrative: The patient is a very pleasant 69-year-old gentleman who presents to the emergency department via EMS. The patient is coming to the hospital for evaluation of chest pain, which started at 23:32. His chest pain is centrally located. It does not radiate or move anywhere. It was a pressure-like sensation. Belching actually made it feel better. Nothing made it worse. He did try a nitro at home that did make him feel generally poor overall. The patient stated it was associated with diaphoresis and shortness of breath although both of those have improved at this time. When the chest pain started, he indicated that the chest pain was a 9 out of 10. By the time he arrived to the emergency department he was stating it was 6-7 out of 10. It occurred while he was relaxing watching television. And route medics placed a 20-gauge IV in the right AC and give the patient aspirin 324 mg. This gentleman has a known history of coronary artery disease. He had open heart surgery at [facility] in 2022. The patient subsequently had the placement of 3 stents. July 08, 2023: Dr. Jones placed a stent in the obtuse marginal branch January 31, 2024: Dr. James placed a stent in the proximal circumflex and the mid circumflex. MD complaint: Reports chest heaviness Pertinent past history: Reports coronary artery disease, prior [place] and CABG Onset (ago): hour(s) Timing of current episode: Reports constant Prior episodes: Yes (intermittent yesterday) Onset: Reports during rest Quality: Reports heaviness Risk Factors Coronary artery disease risk factors: hyperlipidemia and hypertension Related Data Home Medications ?Medication ?Instructions ?Recorded ?Confirmed pantoprazole 40 mg tablet,delayed 40 mg PO DAILY 03/21/23 01/28/24 release atorvastatin 40 mg tablet 80 mg PO QAM 05/06/23 01/28/24 clopidogrel 75 mg tablet 75 mg PO QAM 05/06/23 01/28/24 carvedilol 3.125 mg tablet 3.125 mg PO Q12H 08/31/23 01/28/24 furosemide 20 mg tablet (Lasix) 20 mg PO .COMPLEX 08/31/23 01/28/24 lisinopril 10 mg tablet 10 mg PO QAM 08/31/23 01/28/24 isosorbide mononitrate 60 mg 60 mg PO DAILY 09/01/23 01/28/24 tablet,extended release 24 hr nitroglycerin 0.4 mg sublingual 0.4 mg sublingual Q5M PRN chest 01/28/24 01/28/24 tablet pain Allergies Allergy/AdvReac Type Severity Reaction Status Date / Time No Known Drug Allergies Allergy Verified 06/28/24 00:27 Review of Systems ROS Narrative 10 Systems were reviewed, and unless not ed in the HPI, all other systems are reviewed, unremarkable, or noncontributory. [facility] Medical History Angina pectoris, unstable ?I20.0 - Unstable angina (ICD-10) Chest pain ?R07.9 - Chest pain, unspecified (ICD-10) PVD (peripheral vascular disease) ?I73.9 - Peripheral vascular disease, unspecified (ICD-10) Hypertension ?I10 - Essential (primary) hypertension (ICD-10) CAD (coronary artery disease) ?I25.10 - Atherosclerotic heart disease of [place] coronary artery without angina pectoris (ICD-10) LLL pneumonia ?J18.9 - Pneumonia, unspecified organism (ICD-10) Acute non-ST elevation myocardial infarction (NSTEMI) ?I21.4 - Non-ST elevation (NSTEMI) myocardial infarction (ICD-10) Surgical History History of open heart surgery ?Z98.890 - Other specified postprocedural states (ICD-10) Family History Father Family history of diabetes mellitus Family history of hypertension Family history of myocardial infarction Brother Family history of stroke Other Family history of CHF (congestive heart failure) Social History Within the past year, how often did you have a drink containing alcohol: never Score interpretation: A score less than 4 is consistent with normal alcohol consumption. Smoking status: Former smoker Non-prescribed substance use: denies use Highest level of school completed/degree received: 6th grade Are you now , , , , never or living with a partner: Little interest or pleasure in doing things: not at all Feeling down, depressed, or hopeless: not at all Feel stressed/tense/nervous/anxious/difficulty sleeping: not at all Do you think of yourself as: straight/heterosexual Gender Identity: male Exam Narrative Exam Narrative: Prior to examining the patient, I have washed with hospital approved and provided Antiseptic Hand Utility Tractor Operator and have also applied gloves.? Prior to touching the patient, I asked for consent to examine the patient.? General: Alert and oriented, well nourished, mild distress. Eye: PERRL, EOMI, normal conjunctiva. HENT: Normocephalic, normal hearing, moist oral mucosa, no scleral icterus, no sinus tenderness. Neck: Supple, non-tender, no carotid bruits, no JVD, no lymphadenopathy. Lungs: Clear to auscultation and percussion, non-labored respiration. Heart: Normal rate, regular rhythm, no murmur, gallop or edema. Abdomen: Soft, non-tender, non-distended, normal bowel sounds, no masses. Musculoskeletal: Normal range of motion and strength, no tenderness or swelling. Skin: Skin is warm, dry and pink, no rashes or lesions. Well-healed midline sternotomy scar. Neurologic: Awake, alert, and oriented X3, CN II-XII intact. Psychiatric: Cooperative, appropriate mood and affect.? Following the conclusion of the examination, I have washed my hands thoroughly after removing examination gloves. Constitutional Vital Signs, click to edit/add: Last Vital Signs Temp 99 F 06/28/24 00:20 Pulse 96 H 06/28/24 02:30 Resp 15 06/28/24 02:30 BP 121/70 06/28/24 02:30 Pulse Ox 98 06/28/24 02:30 O2 Del Method Room Air 06/28/24 02:27 Course Course Hospital Course: Patient received an aspirin and route to the hospital. The patient was having pain at a 5 out of 6 when he arrived. He was given 2 mg of morphine intravenously and then the patient's pain went to 0 where it remained there rest of his emergency department visit. Once his troponin returned elevated at 3037, the patient was started on a heparin drip and bolus. Second troponin returns at 5815.6. Patent on heparin drip and remains chest pain free. Reevaluation(s) Reevaluation #1: Reassessed the patient. He is now complaining of chest pain that this amount of 10 on the left side of the chest. He stated that the chest pain did not start until the heparin was started. He feels like the heparin immediately started to make him have chest pain. I told the patient that the heparin was designed to help thin the blood so that he could get more blood into the heart. The patient indicated that the pain was feeling like it did at his home. I am not sure if the patient's symptoms are attributed to anxiety or to an actual increase in pain but will give the patient a little fentanyl since it will have less effect on his blood pressure. Time: 02:23 Reevaluation #2: Patient nurse goes in to provide the patient with fentanyl but the patient indicated that he had a hot feeling going down his left arm. Patient was placed on O2 via nasal cannula and the nurse obtained a second EKG. Second EKG revealed a heart rate of 102 bpm. The [place] interval is normal. QRS duration is normal. The patient however has much more pronounced ST segment depression in leads II, III and aVF. V5 and V6 are also now more pronounced. The patient does have a 1 box elevation in aVR which could be indicative of a high LAD lesion. At this time given the dynamic morphological changes in the EKG despite appropriate treatment and the likely lack of ability to get the patient out of our emergency department we will seek air transportation for this patient. Time: 02:26 Consultations Consultation #1: Discussed case with Dr. Bermeo. He indicated to admit the patient and indicated the patient would likely get a heart cath on Saturday. Time: 01:35 Consultation #2: I discussed this case with who accepted the patient to a stepdown unit. Time: 01:41 Vital Signs Vital signs: Vital Signs Temperature 99 F 06/28/24 00:20 Pulse Rate 106 H 06/28/24 00:20 Respiratory Rate 17 06/28/24 00:20 Blood Pressure 88/59 L 06/28/24 00:20 Pulse Oximetry 99 06/28/24 00:20 Oxygen Delivery Method Room Air 06/28/24 00:20 Temperature 99 F 06/28/24 00:20 Pulse Rate 96 H 06/28/24 02:30 Respiratory Rate 15 06/28/24 02:30 Blood Pressure 121/70 06/28/24 02:30 Pulse Oximetry 98 06/28/24 02:30 Oxygen Delivery Method Room Air 06/28/24 02:27 MDM - Chest Pain MDM Narrative Medical decision making narrative: Patient is a 69-year-old male with a known past medical history of coronary artery disease. He presents to the emergency room complaining of chest pain. Patient received aspirin en route to the hospital. Once the onset of troponin elevation was appreciated the patient was started on heparin. Patient had soft pressures. And I considered it could be from the nitroglycerin that the patient took from home. The patient however had evidence of peripheral vascular congestion on the chest x-ray and I did not feel like a fluid bolus would be appropriate. I also did not feel like I would need to commit the patient to intervenous pressure support. Therefore, give the patient a dose of midodrine to help with his pressure to see if it would help negate the hypotensive effects of the nitro. Differential Diagnosis Differential diagnosis: Likely stable angina, unstable angina pectoris, atypical chest pain, st elevation myocardial infarction and chest pain Medical Records Data Attestation: I reviewed the patient's medical records. Lab Data Attestation: I reviewed the patient's lab results. Labs: Lab Results 06/28/24 06/28/24 Range/Units 00:21 01:44 WBC 10.8 (4.0-11.0) 10^3/uL RBC 3.30 L (4.70-6.10) 10^6/uL Hgb 9.4 L (14.0-18.0) g/dL Hct 29.3 L (42.0-54.0) % MCV 88.8 (80.0-94.0) fL MCH 28.5 (25.9-34.0) pg MCHC 32.1 (29.9-35.2) g/dL RDW 14.9 (11.0-15.0) % Plt Count 332 (150-450) 10^3/uL MPV 10.3 (9.5-13.5) fL Neut % (Auto) 67.5 (43.0-75.0) % Lymph % (Auto) 20.8 (20.5-60.0) % [place] % (Auto) 9.7 (1.7-12.0) % Eos % (Auto) 1.3 (0.9-7.0) % Baso % (Auto) 0.4 (0.2-2.0) % Neut # (Auto) 7.3 H (1.4-6.5) 10^3/uL Lymph # (Auto) 2.2 (1.2-3.8) 10^3/uL [place] # (Auto) 1.1 H (0.3-0.8) 10^3/uL Eos # (Auto) 0.1 (0.0-0.7) 10^3/uL Baso # (Auto) 0.0 (0.0-0.1) 10^3/uL Abs Immat Gran (auto) 0.03 (0.00-0.03) 10^3/uL Imm/Tot Granulo (auto) 0.3 (0.0-0.5) % PT 12.1 H (9.0-11.6) sec INR 1.16 APTT 34.1 (22.3-36.2) sec Sodium 140 (136-145) mmol/L Potassium 3.9 (3.5-5.1) mmol/L Chloride 104 (98-107) mmol/L Carbon Dioxide 19.0 L (21.0-32.0) mmol/L Anion Gap 20.9 BUN 20.0 H (7.0-18.0) mg/dL Creatinine 1.48 H (0.70-1.30) mg/dL Est GFR ( Amer) 57 L (>=60 mL/min/1.73m^2) Est GFR (Non-Af Amer) 47 L (>=60 mL/min/1.73m^2) BUN/Creatinine Ratio 13.5 Glucose 203 H (74-106) mg/dL Calcium 8.7 (8.5-10.1) mg/dL Total Bilirubin 0.4 (0.2-1.0) mg/dL AST 39 H (15-37) U/L ALT 16 (16-63) U/L Alkaline Phosphatase 133 H (46-116) U/L Troponin I High Sens 3037.3 H* 5815.6 H* (4.0-76.1) pg/mL NT-Pro-B Natriuret Pep 5379.0 H* (<=900.0) pg/mL Total Protein 7.3 (6.4-8.2) g/dL Albumin 3.5 (3.4-5.0) g/dL Globulin 3.8 g/dL Albumin/Globulin Ratio 0.9 Lipase 47.0 (16.0-77.0) U/L Imaging Data Chest x-ray: Attestation: I personally reviewed and interpreted this imaging study as follows: My impression: Patient has normal cardiac silhouette. There is no evidence of any focal infiltrate. The patient does have evidence of peripheral vascular congestion with fluid-filled fissure on the right. The patient has evidence of sternotomy wires present. No evidence of pneumothorax. No evidence of bone fractures. No free air under the diaphragm. Summary: Peripheral vascular congestion. Radiologist's impression: ITS Impressions Chest X-Ray 06/28/24 00:49 IMPRESSION: Increased markings are seen in the infrahilar right lower lobe, which may represent peribronchial thickening and bronchiectatic changes. However, peribronchial infiltrates cannot be excluded. Please correlate clinically. Electronically authenticated by: NOE ZARATE Date: 06/28/2024 02:21 ECG Data Attestation: I personally reviewed and interpreted this ECG as follows: ECG interpretation date: 06/28/24 ECG interpretation time: 00:27 Ischemic changes: non-specific ST-T wave changes and poor r wave progression Interpretation: The patient had a second EKG that was performed at 2:28 AM. It reveals sinus rhythm with a ventricular of 102 bpm. The [place] interval and QRS duration are normal. QTc is not prolonged. The patient however does have dynamic morphological changes. The ST segment depressions are much more pronounced in 2, 3, aVF, V5 and V6. There is 1 box elevation in aVR which may be indicative of a high LAD lesion. These are definitive changes not appreciated on the first EKG. The patient has dynamic changes but no evidence of STEMI at this time and he is not chest pain-free. Therefore, there is indication for emergent transport. Heart Score History: Highly Suspicious ECG: Sign. ST Depression (II, aVF, V6) Age: >65 years Risk Factors: >3 Risk Factors/ HX of CAD:2 Troponin: >3X Normal Limit Total Heart Score Recommendations & Risks:: 10 Critical Care Time Critical Care Time Critical Care Time: Yes Total Critical Care Time: 40 Attestation: Critical time of 40 minutes was used. This was needed for the treatment of prevention of clinically significant and life-threatening life threatening diagnoses. Patient needed to have emergent assessment for concern of a STEMI. Once his STEMI was ruled out we still had to be concerned that the patient had ACS given his history. Therefore we had to go through old medical records. It also required time to speak to the patient's family about his medical care. It resulted in discussing with consultants and the transferring facility. It inv olved discussing the case with the patient's family and it also required me to document the patient's medical record where they were the in the emergency department. Discharge Plan Discharge Chief Complaint: Chest Pain Clinical Impression: Non-ST elevation [place] (NSTEMI) Patient Disposition: [facility] Time of Disposition Decision: 00:41 Discharge Location: [facility] Condition: Fair Mode of Transportation: [employer]
[2024-06-28 01:44] LABS: INR 1.16; Partial Thromboplastin Time 34.1 sec (22.3-36.2); Prothrombin Time 12.1 sec (9.0-11.6)
[2024-06-28] MEDS: HEPARIN SODIUM,PORCINE/D5W 25,000 UNIT/500 ML IV.SOLN 14.805 UNIT IV (01:59)
[2024-06-28] MEDS: HEPARIN SODIUM (PORCINE) 5,000 UNIT/ML VIAL 3700 UNIT IV (01:59)
[2024-06-28 02:11] LABS: Troponin I High Sensitivity 5815.6 pg/mL (4.0-76.1)
[2024-06-28] MEDS: MIDODRINE HCL 5 MG TABLET PO (02:17)
--- NOTE | 2024-06-28 02:26 | ECG_ITS ---
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
[2024-06-28] MEDS: FENTANYL CITRATE/PF 100 MCG/2 ML VIAL 25 MCG IV (02:45)
== END 2024-06-28 03:05 | disposition short-term general hospital (02) ==
PROVIDERS: Emergency Provider Emergency Medicine; PCP Family Medicine
DX: I21.4 Non-ST elevation (NSTEMI) myocardial infarction (principal); R06.02 Shortness of breath; I25.10 Atherosclerotic heart disease of native coronary artery without angina pectoris; Z95.5 Presence of coronary angioplasty implant and graft; I25.2 Old myocardial infarction; Z95.1 Presence of aortocoronary bypass graft; I10 Essential (primary) hypertension; E78.5 Hyperlipidemia, unspecified; Z87.891 Personal history of nicotine dependence
CPT/HCPCS: 36415; 71045; 80053; 83690; 83880; 84484; 85025; 85610; 85730; 93005; 96365; 96375; 96376; 99285; J1644; J2270; J3010